=== PATIENT | female | born 1995 | race Caucasian/White ===

== ENCOUNTER 2017-04-05 19:35 | Emergency (ER) | payer MEDICAID, SELFPAY ==
[2017-04-05 19:36] VITALS: BP 155/86; PULSE 100; RESP 20; TEMP 37.2; O2SAT 99; BMI 41.5
--- NOTE | 2017-04-05 22:22 | ED.VISSUMM ---
- ER Visit Summary Date of Service: 04/05/17 Chief Complaint: [Mouth pain] History of Present Illness: The patient is a 21 F [who presents the emergency department with 1 week of mouth pain. Her gums have been bleeding off and on. She describes as a aching discomfort. Today she had subjective fevers with chills and felt hot. She has had back surgery in 2011. She denies any tooth pain. It is not a burning sensation. She has a history of bipolar autism IBS depression and orthostatic intolerance] Physical Examination: [] Afebrile heart rate 100 other vitals within normal limits Well-nourished overweight female in no acute distress No facial swelling TMs are clear Intraoral exam reveals a gingival ulcer at the juncture between the vehicle and gingival mucosa there is no dental tenderness there is mild surrounding hyperemia there is no abscess there is no sublingual or submandibular edema Patient has a regular rhythm with a 2 out of 6 systolic murmur Test Results: [] Emergency Department Course and Treatment: [Mother cannot remember if she has had a murmur in the past or not. She would like us to draw blood cultures because she has a history of a bacteremia that was missed. At this time there are no signs of bacteremia. Patient is well appearing there is minimal signs of infection and I think the risk of false positive blood cultures is higher than the benefit. Patient will be started on amoxicillin and Flagyl for gingivitis given chlorhexidine oral rinse. She will follow-up with her dentist as scheduled on the . They understand reasons for which to return including persistent temperature 100.5 worsening symptoms] Treatment Plan: [] Disposition: [Discharge] Impression: [Gingival ulcer, mild gingivitis] This note was generated with [employer] dictation software. It may contain incorrect words, spelling, and punctuation that were not noted in review of the chart prior to signing ED Disposition - Plan for ED Patient: Chief Complaint: Dental Referrals: Vikram Wang [Primary Care Provider] -
--- NOTE | 2017-04-05 22:26 | ED.DEP ---
ED Disposition - Plan for ED Patient: Chief Complaint: Dental Instructions: ED Stomatitis Ch, ED Trench Mouth Prescriptions: Metronidazole [Flagyl] 500 mg PO Q8H 7 Days #21 tablet Chlorhexidine Gluconate 10 ml MM BID #500 ml Amoxicillin [Amoxil] 500 mg PO TID 10 Days tab.chew Referrals: Vikram Wang [Primary Care Provider] - your, dentist [Other] - 5-7 Days
[2017-04-05] MEDS: metroNIDAZOLE 500 MG Tablet PO (22:38)
[2017-04-05] MEDS: AMOXICILLIN 500 MG CAPSULE PO (22:38)
[2017-04-05 22:40] VITALS: RESP 18; TEMP 36.8
== END 2017-04-05 22:42 | disposition home or self-care (01) ==
LOC: ED 22:15
PROVIDERS: Emergency Provider Emergency Medicine; Family Provider Physician Assistant; PCP Physician Assistant
DX: K06.8 Other specified disorders of gingiva and edentulous alveolar ridge (principal); K05.10 Chronic gingivitis, plaque induced; R01.1 Cardiac murmur, unspecified; E66.3 Overweight; K58.9 Irritable bowel syndrome, unspecified; F32.9 Major depressive disorder, single episode, unspecified; F31.9 Bipolar disorder, unspecified; F84.0 Autistic disorder; Z79.899 Other long term (current) drug therapy
CPT/HCPCS: 99282

== ENCOUNTER → 2017-06-26 09:16 | Outpatient (CLI) | payer MEDICAID, SELFPAY ==
[2017-06-26 11:07] LABS: ALB/GLOB Ratio 0.7 RATIO (0.9-2.4); AST(SGOT) 21 U/L (15-37); Alanine Aminotransfer ALT/SGPT 33 U/L (13-56); Albumin, Serum 3.2 g/dL (3.2-5.0); Alkaline Phosphatase 52 U/L (45-117); Anion Gap 11 (5-15); BUN 9 mg/dL (7-18); BUN/Creat Ratio 16.2 RATIO (10-20); Calcium,Total 8.9 mg/dL (8.5-10.1); Chloride 108 mmol/L (98-107); Creatinine, Serum 0.56 mg/dL (0.55-1.02); EST Glomerular Filtration Rate 147 mL/min (>60); Est Glom Filt Rate - Afr Amer 178 mL/min (>60); Globulin 4.5 g/dL (2.2-4.2); Glucose 81 mg/dL (74-106); Potassium 4.1 mmol/L (3.5-5.1); Protein, Total 7.7 g/dL (6.4-8.2); Sodium Level 143 mmol/L (136-145); Thyroid Stim Hormone (TSH) 1.85 uIU/mL (0.358-3.74)
== END ==
PROVIDERS: Family Provider Family Medicine; PCP Family Medicine; Visit Provider Registered Nurse
DX: R53.83 Other fatigue (principal); F19.10 Other psychoactive substance abuse, uncomplicated; Z79.899 Other long term (current) drug therapy
CPT/HCPCS: 36415; 80053; 80178; 84443

== ENCOUNTER → 2017-11-13 08:22 | Outpatient (CLI) | payer MEDICAID, SELFPAY | PROVIDERS: Family Provider Family Medicine; PCP Family Medicine; Referring Provider Nurse Practitioner Family; Visit Provider Nurse Practitioner Family | DX: R19.7 Diarrhea, unspecified (principal) | CPT/HCPCS: 87493; 87506 ==

== ENCOUNTER → 2017-12-10 11:05 | Outpatient (CLI) | payer MEDICAID, SELFPAY | PROVIDERS: Family Provider Family Medicine; PCP Family Medicine | DX: K58.9 Irritable bowel syndrome, unspecified (principal); R19.7 Diarrhea, unspecified | CPT/HCPCS: 36415 ==

== ENCOUNTER → 2017-12-17 07:03 | Outpatient (CLI) | payer MEDICAID, SELFPAY | PROVIDERS: Family Provider Family Medicine; PCP Family Medicine | DX: K58.9 Irritable bowel syndrome, unspecified (principal); R19.7 Diarrhea, unspecified | CPT/HCPCS: 36415 ==

== ENCOUNTER → 2018-06-27 | Outpatient (CLI) | payer MEDICAID, SELFPAY ==
--- NOTE | 2018-06-27 09:16 | US_ITS ---
STUDY: ABDOMINAL ULTRASOUND REASON FOR EXAM: Female, 22 years old. Gastritis TECHNIQUE: Transabdominal ultrasound was performed with real-time and static ching scale imaging. TECHNICAL QUALITY: Limited due to obesity COMPARISON: Ultrasound gallbladder June 02, 2016 FINDINGS: Liver: The liver measures 18 cm. There is increased hepatic echogenicity. The bile ducts are within normal limits. There is hepatic color flow. The direction of portal flow is hepatopetal. There is no demonstrated mass lesion. Gallbladder: The gallbladder wall measures 3 mm. There is a negative sonographic Hansen's sign. There is no pericholecystic fluid. There are no gallstones. Common Bile Duct (C.B.D.): The common bile duct measures 2 mm. Pancreas: Normal size of the head, body and tail of the pancreas. There is normal echogenicity of the pancreas. There is no demonstrated pancreatic mass or cyst. Spleen: Normal size of the spleen. The spleen measures 13 cm. Right Kidney: The right kidney measures 12 cm. Normal renal cortex. There is no demonstrated renal mass or cyst. There is no right hydronephrosis. Left Kidney: The left kidney measures 13 cm. Normal renal cortex. There is no demonstrated renal mass or cyst. There is no left hydronephrosis. Aorta: The aorta is normal in caliber. I.V.C.: The IVC is patent. There is no ascites. US/Abdomen Complete IMPRESSION: Fatty liver. Hepatomegaly. No acute pathology identified. Electronically Signed: Clay Sumner, at 20:53 EDT Tel , Service support ,
== END | disposition home or self-care (01) ==
LOC: US 09:13
PROVIDERS: Family Provider Family Medicine; PCP Family Medicine; Referring Provider Internal Medicine Gastroenterology; Visit Provider Internal Medicine Gastroenterology
DX: K29.70 Gastritis, unspecified, without bleeding (principal); R11.0 Nausea
CPT/HCPCS: 76700

== ENCOUNTER → 2018-08-20 | Outpatient (CLI) | payer MEDICAID, SELFPAY ==
[2018-08-20 10:03] LABS: Hemoglobin A1c 5.2 % (4.2-6.3)
[2018-08-20 10:22] LABS: ALB/GLOB Ratio 0.8 RATIO (0.9-2.4); AST(SGOT) 20 U/L (15-37); Alanine Aminotransfer ALT/SGPT 38 U/L (13-56); Albumin, Serum 3.2 g/dL (3.2-5.0); Alkaline Phosphatase 58 U/L (45-117); Anion Gap 10 (5-15); BUN 11 mg/dL (7-18); BUN/Creat Ratio 23.3 RATIO (10-20); Calcium,Total 8.6 mg/dL (8.5-10.1); Chloride 109 mmol/L (98-107); Creatinine, Serum 0.47 mg/dL (0.55-1.02); EST Glomerular Filtration Rate 176 mL/min (>60); Est Glom Filt Rate - Afr Amer 212 mL/min (>60); Glucose 91 mg/dL (74-106); Protein, Total 7.2 g/dL (6.4-8.2); Sodium Level 142 mmol/L (136-145); Thyroid Stim Hormone (TSH) 2.48 uIU/mL (0.358-3.74)
== END | disposition home or self-care (01) ==
LOC: LAB 08:19
PROVIDERS: Referring Provider Registered Nurse; Visit Provider Registered Nurse
DX: F31.81 Bipolar II disorder (principal); Z79.899 Other long term (current) drug therapy
CPT/HCPCS: 36415; 80053; 80178; 83036; 84443

== ENCOUNTER → 2018-09-20 | Outpatient (CLI) | payer MEDICAID, SELFPAY ==
--- NOTE | 2018-09-20 17:48 | CT_ITS ---
STUDY: CT ABDOMEN AND PELVIS WITHOUT CONTRAST REASON FOR EXAM: Female, 22 years old. Lower abdominal pain RADIATION DOSAGE (If Supplied By Facility): CTDIvol = ( 14.80 ) mGy, DLP = ( 825.95 ) mGycm TECHNIQUE: Transaxial images were obtained from the dome of the diaphragm to the symphysis pubis without oral contrast, and without intravenous contrast. Sagittal and coronal images were reconstructed. Individualized dose optimization techniques were used for this CT. COMPARISON: Ultrasound abdomen 06/28/1999, CT abdomen and pelvis 11/24/2015, 16 FINDINGS: Body wall soft tissues: No acute process. Osseous structures: No acute intracranial process. Multilevel thoracolumbar posterior valentina fixation. Scoliosis. Inferior chest: No acute process. Hepatobiliary: Hepatic steatosis with hepatomegaly, right liver 21.7 cm. Normal gallbladder and biliary tree. Pancreas: No acute process. Spleen: Normal. Adrenal glands: Normal. Urogenital: Normal kidneys, collecting systems, ureters, urinary bladder, uterus and adnexa. No pelvic free fluid. No adnexal mass or suspicious cyst. Pelvic floor and sidewalls and retroperitoneum: No mass or adenopathy. Vasculature: No acute process. Stomach: No acute process. Small bowel and mesentery: No acute process. Large bowel: Normal appendix. Unremarkable large bowel and rectum. Free fluid or free air: None. CT/Abdomen/Pelvis without Cont IMPRESSION: Hepatic steatosis with hepatomegaly. No other acute abdominopelvic process is evident. Electronically Signed: Vinay Garcia MD at 19:04 EDT Tel , Service support ,
== END | disposition home or self-care (01) ==
LOC: CT 17:45
DX: R10.9 Unspecified abdominal pain (principal)
CPT/HCPCS: 74176

== ENCOUNTER 2019-01-07 11:46 | Emergency (ER) | payer MEDICAID, SELFPAY ==
[2019-01-07 11:47] VITALS: BP 161/85; PULSE 101; RESP 16; TEMP 37.1; O2SAT 97; BMI 38.5
[2019-01-07 11:59] VITALS: BP 161/85; PULSE 101; RESP 16; TEMP 37.1; O2SAT 97
--- NOTE | 2019-01-07 12:02 | ED.VIS.GEN ---
History of Present Illness Chief Complaint: Nausea/Vomiting/Diarrhea Informant: Patient, Family Onset: Days - 3 Narrative: 3 days of diarrhea reports 30 a day, today reports 12 episodes with last one being 20 minutes ago. No fevers or abdominal pain. States nausea and vomiting x2 total, one 2 days ago and one yesterday. No hematemesis, melena, hematochezia. No recent antibiotics. No sick contacts. No family with similar symptoms. No recent travel. No abnormal meals. No urinary symptoms. Started menstrual period yesterday. Allergy to Zofran causing throat swelling. Prior similar symptoms: No Past Medical History - Allergies and Home Meds Allergies/Adverse Reactions: Allergies ondansetron [From Zofran (as hydrochloride)] Adverse Reaction (Verified 01/07/19 11:46) Nausea Primary Care Physician: Frances Pat [Primary Care Provider] - Smoking Status: Never smoker Review of Systems General: Denies: Chills, Fever, Sweats Eyes: Denies: Visual changes - bilaterally, Diplopia ENT: Denies: Rhinorrhea, Sore throat Cardiovascular: Denies: Chest pain, Palpitations Respiratory: Denies: Dyspnea, Cough, Dyspnea on exertion Gastrointestinal: Reports: Nausea, Diarrhea. Denies: Abdominal pain, Vomiting, Melena, Hematochezia Genitourinary: Denies: Dysuria, Hematuria, Frequency Musculoskeletal: Denies: Back pain, Extremity Pain Skin: Denies: Rash, Wounds Neurological: Denies: Headache, Weakness, Numbness Physical Exam Vital Signs/Narrative: Vital Signs Temp Pulse Resp BP Pulse Ox 01/07/19 11:59 98.7 F 101 H 16 161/85 H 97 01/07/19 11:47 98.7 F 101 H 16 161/85 H 97 Inital Vital Signs reviewed: Yes General: Well nourished, Well developed, No Acute Distress Head: Normocephalic, Atraumatic Eyes: Perrl, EOMI ENT: Moist mucous membranes, No rhinorrhea Neck: Supple, Nontender Cardiovascular: Regular rate, Regular rhythm, No murmurs Respiratory: No distress, CTA bilaterally, Chest nontender Abdomen: Soft, Nontender, Nondistended, Normal bowel sounds Back: Nontender, Normal Inspection Extremities: Nontender, No edema Skin: Normal color, No rash Neurological: Alert, Oriented x3, Cranial nerves II-XII grossly intact, Normal Strength, Normal Sensation Psychological: Normal affect, Normal Mood Diagnostic/Tx/Re-eval Abnormal Lab Results 01/07/19 01/07/19 01/07/19 12:20 12:20 12:20 WBC 7.5 RBC 4.81 Hgb 12.2 Hct 38.7 MCV 80.5 L MCH 25.4 L MCHC 31.5 L RDW Std Deviation 43.0 RDW Coeff of Delmy 14.6 Plt Count 333 MPV 9.2 Immature Gran % (Auto) 0.300 Neut % (Auto) 64.7 Lymph % (Auto) 27.1 Harris % (Auto) 6.4 Eos % (Auto) 1.1 Baso % (Auto) 0.4 Absolute Neuts (auto) 4.9 Absolute Lymphs (auto) 2.03 Nucleated RBC % 0 Sodium 140 Potassium 3.8 Chloride 106 Carbon Dioxide 26.0 Anion Gap 8 BUN 7 Creatinine 0.64 Estim Creat Clear Calc 134.08 Est GFR (MDRD) Af Amer 149 Est GFR (MDRD) Non-Af 123 BUN/Creatinine Ratio 10.9 Glucose 77 Calcium 8.9 Serum , Qual NEGATIVE - Medical Decision Making Nontoxic vital signs stable nontender abdomen. Reported significant amounts of stools for 3 days with no C. difficile risk factors. I did check labs normal white count normal creatinine normal potassium. Given IV fluids and Phenergan nausea improved she has been tolerant oral fluids today. Patient was in the department for nearly 3 hours with no stool specimen obtainable. No indication for empiric treatment at this time. She is sent home with stool specimen collection kit, outpatient lab order for stool evaluation and follow-up with her PCP. All questions were answered. Prescription for Phenergan to use as needed. ED Disposition - Plan for ED Patient: Disposition: Home or Assisted Living Diagnosis: Diarrhea Instructions: DIET, Vomiting or Diarrhea [6yr-Adult] Prescriptions: proMETHazine tablet [Phenergan] 25 mg PO Q6H PRN PRN #10 tablet PRN Reason: Nausea Referrals: [facility]Frances Tierney [Primary Care Provider] - 3-5 Days if not improving
[2019-01-07] MEDS: proMETHazine 25 MG/ML Syringe 12.5 MG IV (12:18)
[2019-01-07] MEDS: 0.9% Normal Saline 1,000 ML 1000 ML IV (12:19)
[2019-01-07 12:33] LABS: Absolute Lymphocyte Count 2.03 X10^3/uL (0.83-4.51); Absolute Neutrophil Count 4.9 X10^3/uL (2.0-7.7); Basophil# 0.03 X10^3/uL; Basophil% 0.4 % (0-1); Eosinophil# 0.08 X10^3/uL; Eosinophils% 1.1 % (0-5); Hematocrit 38.7 % (37-47); Hemoglobin 12.2 g/dL (12.0-15.0); Lymphocyte # 2.03 X10^3/ul (4.0); Lymphocyte % 27.1 % (19-41); Mean Corp Hgb Conc 31.5 g/dL (32-36); Mean Corpuscular Hgb 25.4 pg (27.0-32.0); Mean Corpuscular Volume 80.5 fL (81-99); Mean Platelet Vol. 9.2 fl (6.2-12.0); Monocyte# 0.48 X10^3/uL; Monocyte% 6.4 % (0-10); NRBC Flagged by Analyzer 0 % (0-5); Neutrophil # 4.86 X10^3/uL (2.7-7.7); Neutrophil % 64.7 % (47-70); Platelet Count 333 K/mm3 (150-450); RBC Distribution Width CV 14.6 % (11.6-14.6); Red Blood Count 4.81 M/mm3 (4.2-5.4); White Blood Count 7.5 K/mm3 (4.4-11.0)
[2019-01-07 12:51] LABS: Anion Gap 8 (5-15); BUN 7 mg/dL (7-18); BUN/Creat Ratio 10.9 RATIO (10-20); Calcium,Total 8.9 mg/dL (8.5-10.1); Chloride 106 mmol/L (98-107); Creatinine, Serum 0.64 mg/dL (0.55-1.02); EST Glomerular Filtration Rate 123 mL/min (>60); Est Glom Filt Rate - Afr Amer 149 mL/min (>60); Estimated Creatinine Clearance 134.08 ml/min; Glucose 77 mg/dL (74-106); Potassium 3.8 mmol/L (3.5-5.1); Sodium Level 140 mmol/L (136-145)
[2019-01-07 13:00] LABS: Internal QC Validated? YES +Cl - CLEAR BKGD; Pregnancy, Serum, hCG Quali. NEGATIVE Negative
[2019-01-07 13:54] VITALS: BP 158/90; PULSE 91; RESP 16; O2SAT 100
== END 2019-01-07 14:51 | disposition home or self-care (01) ==
PROVIDERS: Emergency Provider Emergency Medicine
DX: R19.7 Diarrhea, unspecified (principal); R11.2 Nausea with vomiting, unspecified
CPT/HCPCS: 80048; 84703; 85025; 87493; 87506; 96361; 96374; 99283; J7030

== ENCOUNTER → 2019-01-07 15:26 | Outpatient (CLI) | payer MEDICAID, SELFPAY ==
[2019-01-07 11:47] VITALS: BMI 38.5
== END ==
PROVIDERS: Referring Provider Emergency Medicine; Visit Provider Emergency Medicine
DX: R19.7 Diarrhea, unspecified (principal)
CPT/HCPCS: 87493; 87506

== ENCOUNTER → 2019-01-08 07:53 | Outpatient (CLI) | payer MEDICAID, SELFPAY ==
[2019-01-07 11:47] VITALS: BMI 38.5
--- NOTE | 2019-01-08 07:56 | ECHOD_ITS ---
Reason For Study: MURMUR Procedure This was a 2D Doppler, Color Flow transthoracic echocardiogram. The study was technically difficult. PT was very anxious during exam, used paydough to help with anxiety. Unable to utilize Definity, PT unwilling to have IV. Exam performed in department. Left Ventricle Normal LV size. Left ventricular systolic function is normal. The estimated ejection fraction is 55 %. No regional wall motion abnormalities noted. Right Ventricle Normal RV size. Normal systolic function. Atria Normal left atrium. Normal right atrium. Mitral Valve Normal mitral valve. Tricuspid Valve Normal tricuspid valve. Aortic Valve Normal aortic valve. Pulmonic Valve Normal pulmonic valve. Great Vessels Normal aortic root. The pulmonary artery is normal size. Normal inferior vena cava. Pericardium/Pleural No pericardial effusion. MMode/2D Measurements & Calculations LVIDd: 5.1 cm IVSd: 0.91 cm LVOT diam: 2.0 cm LVIDs: 2.9 cm LVPWd: 1.1 cm LVOT area: 3.2 cm2 RVDd: 3.6 cm FS: 42.2 % Ao root diam: 2.6 cm LAV(MOD-bp): 54.2 ml LA A4 area: 19.0 cm2 LAV(MOD-bp) Indexed: 24.5 ml/m2 LAV(MOD-sp2): 52.5 ml LAV(MOD-sp4): 49.4 ml LA dimension(2D): 3.8 cm RA A4 area: 15.5 cm2 Time Measurements MV dec time: 0.16 sec Doppler Measurements & Calculations MV E max elio: 125.6 cm/sec Lat Peak E' Elio: 15.0 cm/sec Med Peak E' Elio: 16.5 cm/sec MV A max elio: 68.7 cm/sec E/E' lat: 8.4 E/E' med: 7.6 MV E/A: 1.8 Ao V2 max: 217.8 cm/sec LV V1 max: 147.7 cm/sec SV(LVOT): 103.2 ml Ao max P.0 mmHg LV V1 max P.7 mmHg Ao V2 mean: 156.8 cm/sec LV V1 mean P.2 mmHg Ao mean P.8 mmHg LV V1 mean: 109.6 cm/sec Ao V2 VTI: 46.6 cm LV V1 VTI: 32.3 cm PETE(I,D): 2.2 cm2 PETE(V,D): 2.2 cm2 PA V2 max: 169.3 cm/sec PA V2 mean: 112.0 cm/sec PA V2 VTI: 35.4 cm Interpretation Summary Normal LV size. Left ventricular systolic function is normal. The estimated ejection fraction is 55 %. No regional wall motion abnormalities noted. Structurally normal valves. Ordering Physician: Micah^Crys^^^GERONTOLOGICAL NURSE PRACTITIONER-C Referring Physician: Crys Obrien Performed By: Kaur Kinsey, CISCO, RVT
== END ==
PROVIDERS: Referring Provider Nurse Practitioner Family; Visit Provider Nurse Practitioner Family
DX: R01.1 Cardiac murmur, unspecified (principal)
CPT/HCPCS: 93306

== ENCOUNTER 2019-03-24 23:21 | Emergency (ER) | payer MEDICAID, SELFPAY ==
[2019-03-24 23:23] VITALS: BP 157/97; PULSE 102; RESP 16; TEMP 36.7; O2SAT 100; BMI 38.2
--- NOTE | 2019-03-25 00:14 | EKG12_ITS ---
Test Reason : CP Blood Pressure : / mmHG Vent. Rate : 078 BPM Atrial Rate : 078 BPM P-R Int : 168 ms QRS Dur : 082 ms QT Int : 408 ms P-R-T Axes : 034 002 -05 degrees QTc Int : 465 ms Normal sinus rhythm Moderate voltage criteria for LVH, may be normal variant Borderline ECG Confirmed by DESTINY GASTON ([id number]), metropolitan editor ROSEANN ALBRIGHT ([id number]) on 03/28/2019 9:24:41 AM Referred By: Frances Tierney Confirmed By:DESTINY GASTON
[2019-03-25] MEDS: Naproxen 500 MG Tablet PO (00:35)
--- NOTE | 2019-03-25 00:43 | ED.VIS.GEN ---
History of Present Illness Chief Complaint: Chest Other Narrative: Patient is a 23-year-old female who presents with chest pain. This is been going on for 2 to 3 days. She notes it began after lifting a heavy container of icing. She initially attributed this to a muscle strain. The pain is along the left side of her chest. It is reproducible with palpation or certain movements. No shortness of breath. No recent illness. No fever or cough. Past Medical History - Allergies and Home Meds Allergies/Adverse Reactions: Allergies ondansetron [From Zofran (as hydrochloride)] Adverse Reaction (Verified 03/25/19 00:12) Nausea Primary Care Physician: Frances Tierney [Primary Care Provider] - Past Medical History: - - Bipolar Smoking Status: Never smoker Review of Systems All systems negative except as indicated General: Denies: Fever Cardiovascular: Reports: Chest pain Respiratory: Denies: Dyspnea Gastrointestinal: Denies: Nausea, Vomiting Skin: Denies: Rash Neurological: Denies: Headache Physical Exam Vital Signs/Narrative: Vital Signs Temp Pulse Resp BP Pulse Ox 03/24/19 23:23 98.1 F 102 H 16 157/97 H 100 Inital Vital Signs reviewed: Yes General: Well nourished, Well developed Head: Normocephalic Eyes: EOMI ENT: Moist mucous membranes Neck: Supple Cardiovascular: Regular rate, Regular rhythm Respiratory: No distress, CTA bilaterally, Chest tenderness - Left-sided chest wall tenderness, no rash Abdomen: Soft Skin: Normal color, No rash Neurological: Alert Psychological: Normal affect Diagnostic/Tx/Re-eval - Medical Decision Making EKG shows normal sinus rhythm at a rate of 78. Patient's pain is most consistent with a chest wall strain. She was advised on supportive care. She was given naproxen here and a prescription of the same. She understands to return for new or worsening symptoms. She was discharged. ED Disposition - Plan for ED Patient: Disposition: Home or Assisted Living Diagnosis: Chest wall muscle strain Instructions: Chest Wall Strain Prescriptions: Naproxen [Naprosyn] 500 mg PO BID #20 tab Prescription Printed Referrals: Frances Tierney [Primary Care Provider] -
[2019-03-25 00:55] VITALS: BP 132/76; PULSE 85; RESP 18; O2SAT 98
== END 2019-03-25 00:58 | disposition home or self-care (01) ==
PROVIDERS: Emergency Provider Emergency Medicine
DX: S29.011A Strain of muscle and tendon of front wall of thorax, initial encounter (principal); X50.0XXA Overexertion from strenuous movement or load, initial encounter; Y93.9 Activity, unspecified; Y92.9 Unspecified place or not applicable; F31.9 Bipolar disorder, unspecified; Z79.899 Other long term (current) drug therapy
CPT/HCPCS: 93005; 99283

== ENCOUNTER → 2019-08-25 13:03 | Outpatient (CLI) | payer MEDICAID, SELFPAY ==
--- NOTE | 2019-08-25 13:06 | US_ITS ---
STUDY: ULTRASOUND BREAST - RIGHT REASON FOR EXAM: Female, 23 years old. Palpable lump in the right breast. TECHNIQUE: Axial and longitudinal images of the RIGHT breast were performed with a high resolution ultrasound transducer. # OF IMAGES: 29 COMPARISON: None. FINDINGS: RIGHT Breast: Sonographic examination of the upper-outer quadrant of the right breast was obtained. There is dense fibroglandular tissue. No solid or cystic mass lesion is seen. US/Breast Limited Unilateral IMPRESSION: Unremarkable sonographic examination of the upper outer quadrant of the right breast. ASSESSMENT CATEGORY: BIRADS Category 1: Negative. A letter regarding these results will be sent to the patient by the facility within 30 days. Electronically Signed: Dante Espitia, at 13:56 EDT , Service support ,
== END ==
DX: N63.11 Unspecified lump in the right breast, upper outer quadrant (principal)
CPT/HCPCS: 76642

== ENCOUNTER 2019-10-16 09:07 | Emergency (ER) | payer MEDICAID, SELFPAY ==
[2019-10-16 09:08] VITALS: BP 164/93; PULSE 83; RESP 18; TEMP 36.3; O2SAT 100; BMI 42.3
--- NOTE | 2019-10-16 09:41 | CT_ITS ---
STUDY: CT BRAIN WITHOUT CONTRAST REASON FOR EXAM: Female, 23 years old. Migraine x 5 days. RADIATION DOSAGE (If Supplied By Facility): CTDIvol = ( 44.99 ) mGy, DLP = ( 796.11 ) mGycm TECHNIQUE: Transaxial CT imaging of the brain was performed without administration of intravenous contrast material. Individualized dose optimization techniques were used for this CT. COMPARISON: No relevant priors. FINDINGS: Normal soft tissue structures. Normal calvarium. Normal size ventricles and extra-axial spaces for the patient''s age. Normal white matter tracts of the cerebral hemispheres. Normal basal ganglia and thalami. Normal brainstem. Normal cerebellum. There is no intracranial hemorrhage. There are no findings of an acute ischemic infarction. Normal visualized paranasal sinuses. CT/Brain/Head without Contrast IMPRESSION: Normal unenhanced CT scan of the brain. Electronically Signed: Dante Espiita, at 10:42 EDT , Service support ,
[2019-10-16] MEDS: DiphenhydrAMINE 50 MG/ML Syringe 25 MG IV (10:04)
[2019-10-16] MEDS: 0.9% Normal Saline 1,000 ML 999 ML IV (10:04)
[2019-10-16] MEDS: Metoclopramide 10 MG/2 ML Vial IV (10:04)
--- NOTE | 2019-10-16 10:05 | ED.DCSUM_ITS ---
- ER Visit Summary Date of Service: 10/16/19 Chief Complaint: Headache History of Present Illness: The patient is a 23 F who presents with a headache that has been constant for the past 5 days. Patient states the pain is over the frontal area and behind her eyes. Patient states this is similar to prior mi graine headaches but worse. Patient admits to some nausea and vomiting. Patient admits to some scotoma prior to the headache. Patient admits to photophobia and blurred vision. Patient also admits to some tingling in her feet but denies any other paresthesias or weakness. Patient states her headache is also worse when she bends forward. Patient states she had a fever a few days ago but currently denies any fevers. Physical Examination: Vital signs are stable. Patient is afebrile. Patient is in no acute distress. Pupils are equal, round, and reactive to light bilat erally. Extraocular muscles are intact. Conjunctiva is clear. There is tenderness over the frontal sinuses bilaterally. Oral mucosa is pink and moist. Neck is supple. Trachea is midline. There is no JVD. Heart was regular rate and rhythm. Lungs are clear and equal bilaterally. Abdomen is soft. Bowel sounds are normal. There is no tenderness. Cranial nerves II through XII are intact. There are no focal motor or sensory deficits noted. Test Results: CT scan of the brain was obtained. There is no acute abnormality. This was interpreted by the radiologist and reviewed by myself. Emergency Department Course and Treatment: Patient was given IV fluids, Reglan, and Benadryl. Patient states the right side of her head feels better but the left side still has moderate amount of pain. Patient was given a dose of Toradol. Patient states her headache was improved after this. Patient was instructed to rest in a dark quiet room. Patient was instructed to follow-up with her primary care physician in 5 to 7 days. Patient understood and was agreeable with the plan. All questions were answered. Disposition: Discharge home Impression: 1. Migraine headache This note was generated with [employer] dictation software. It may contain incorrect words, spelling, and punctuation that were not noted in review of the chart prior to signing ED Disposition - Plan for ED Patient: Disposition: Home or Assisted Living Diagnosis: Headache Instructions: ED, Migraine (Classical) Referrals: Frances Tierney [Primary Care Provider] - 5-7 Days
[2019-10-16 11:22] VITALS: BP 151/92; PULSE 76; RESP 18; O2SAT 99
[2019-10-16] MEDS: Ketorolac 30 MG/ML Syringe IV (11:51)
== END 2019-10-16 12:56 | disposition home or self-care (01) ==
PROVIDERS: Emergency Provider Emergency Medicine
DX: G43.909 Migraine, unspecified, not intractable, without status migrainosus (principal); F31.9 Bipolar disorder, unspecified; F84.0 Autistic disorder; K76.0 Fatty (change of) liver, not elsewhere classified; K58.9 Irritable bowel syndrome, unspecified; F41.9 Anxiety disorder, unspecified; Z79.899 Other long term (current) drug therapy
CPT/HCPCS: 70450; 96361; 96374; 96375; 99283

== ENCOUNTER → 2019-10-31 09:19 | Outpatient (CLI) | payer MEDICAID, SELFPAY ==
[2019-10-16 09:08] VITALS: BMI 42.3
[2019-10-31 10:19] LABS: Absolute Lymphocyte Count 2.23 X10^3/uL (0.83-4.51); Absolute Neutrophil Count 5.5 X10^3/uL (2.0-7.7); Basophil# 0.06 X10^3/uL; Basophil% 0.7 % (0-1); Eosinophil# 0.15 X10^3/uL; Eosinophils% 1.8 % (0-5); Hematocrit 40.4 % (37-47); Hemoglobin 12.3 g/dL (12.0-15.0); Lymphocyte # 2.23 X10^3/ul (4.0); Lymphocyte % 26.2 % (19-41); Mean Corp Hgb Conc 30.4 g/dL (32-36); Mean Corpuscular Hgb 25.4 pg (27.0-32.0); Mean Corpuscular Volume 83.5 fL (81-99); Mean Platelet Vol. 9.5 fl (6.2-12.0); Monocyte# 0.58 X10^3/uL; Monocyte% 6.8 % (0-10); NRBC Flagged by Analyzer 0 % (0-5); Neutrophil # 5.46 X10^3/uL (2.7-7.7); Platelet Count 323 K/mm3 (150-450); RBC Distribution Width CV 14.7 % (11.6-14.6); RBC Distribution Width SD 44.8 fl (35.1-43.9); Red Blood Count 4.84 M/mm3 (4.2-5.4); White Blood Count 8.5 K/mm3 (4.4-11.0)
[2019-10-31 10:49] LABS: Hemoglobin A1c 5.5 % (3.8-5.6)
[2019-10-31 11:07] LABS: ALB/GLOB Ratio 0.8 RATIO (0.9-2.4); AST(SGOT) 80 U/L (15-37); Alanine Aminotransfer ALT/SGPT 144 U/L (13-56); Albumin, Serum 3.4 g/dL (3.2-5.0); Alkaline Phosphatase 74 U/L (45-117); Anion Gap 9 (5-15); BUN 9 mg/dL (7-18); BUN/Creat Ratio 15.5 RATIO (10-20); Calcium,Total 8.6 mg/dL (8.5-10.1); Chloride 108 mmol/L (98-107); Cholesterol 203 mg/dL (200); Creatinine, Serum 0.58 mg/dL (0.55-1.02); EST Glomerular Filtration Rate 137 mL/min (>60); Est Glom Filt Rate - Afr Amer 165 mL/min (>60); Glucose 96 mg/dL (74-106); High Density Lipoprotein 34 mg/dL; Potassium 3.9 mmol/L (3.5-5.1); Protein, Total 7.4 g/dL (6.4-8.2); Sodium Level 141 mmol/L (136-145); T4 Free Direct 1.11 ng/dL (0.76-1.46); Thyroid Stim Hormone (TSH) 2.22 uIU/mL (0.358-3.74); Triglycerides 178 mg/dL; Very Low Density Lipoprotein 36 mg/dL (5-40)
[2019-10-31 22:01] LABS: Magnesium 2.3 mg/dL (1.6-2.6)
== END ==
PROVIDERS: Nurse Practitioner Family
DX: E55.9 Vitamin D deficiency, unspecified (principal); K58.2 Mixed irritable bowel syndrome; G43.909 Migraine, unspecified, not intractable, without status migrainosus; E31.9 Polyglandular dysfunction, unspecified
CPT/HCPCS: 36415; 80053; 80061; 83036; 83735; 84439; 84443; 85025

== ENCOUNTER → 2019-11-14 08:54 | Outpatient (CLI) | payer MEDICAID, SELFPAY ==
[2019-10-16 09:08] VITALS: BMI 42.3
[2019-11-14 11:13] LABS: Lithium < 0.20 mmol/L (0.60-1.20)
[2019-11-14 11:17] LABS: ALB/GLOB Ratio 0.9 RATIO (0.9-2.4); AST(SGOT) 96 U/L (15-37); Alanine Aminotransfer ALT/SGPT 162 U/L (13-56); Albumin, Serum 3.5 g/dL (3.2-5.0); Alkaline Phosphatase 72 U/L (45-117); Anion Gap 6 (5-15); BUN 11 mg/dL (7-18); BUN/Creat Ratio 17.9 RATIO (10-20); Calcium,Total 8.8 mg/dL (8.5-10.1); Chloride 109 mmol/L (98-107); Creatinine, Serum 0.61 mg/dL (0.55-1.02); EST Glomerular Filtration Rate 128 mL/min (>60); Est Glom Filt Rate - Afr Amer 155 mL/min (>60); Globulin 4.1 g/dL (2.2-4.2); Glucose 96 mg/dL (74-106); Potassium 3.9 mmol/L (3.5-5.1); Protein, Total 7.6 g/dL (6.4-8.2); Sodium Level 141 mmol/L (136-145); Thyroid Stim Hormone (TSH) 2.29 uIU/mL (0.358-3.74)
== END ==
PROVIDERS: Referring Provider Registered Nurse; Visit Provider Registered Nurse
DX: Z79.899 Other long term (current) drug therapy (principal)
CPT/HCPCS: 36415; 80053; 80178; 84443

== ENCOUNTER → 2020-05-01 08:35 | Outpatient (CLI) | payer MEDICAID, SELFPAY ==
[2020-05-01 10:22] LABS: ALB/GLOB Ratio 0.7 RATIO (0.9-2.4); AST(SGOT) 26 U/L (15-37); Alanine Aminotransfer ALT/SGPT 46 U/L (13-56); Alkaline Phosphatase 55 U/L (45-117); Anion Gap 7 (5-15); BUN 7 mg/dL (7-18); Calcium,Total 8.6 mg/dL (8.5-10.1); Chloride 108 mmol/L (98-107); Creatinine, Serum 0.64 mg/dL (0.55-1.02); EST Glomerular Filtration Rate 122 mL/min (>60); Est Glom Filt Rate - Afr Amer 148 mL/min (>60); Globulin 4.2 g/dL (2.2-4.2); Glucose 92 mg/dL (74-106); Potassium 3.9 mmol/L (3.5-5.1); Protein, Total 7.2 g/dL (6.4-8.2); Sodium Level 140 mmol/L (136-145); Thyroid Stim Hormone (TSH) 1.98 uIU/mL (0.358-3.74)
== END ==
PROVIDERS: Referring Provider Registered Nurse; Visit Provider Registered Nurse
DX: Z79.899 Other long term (current) drug therapy (principal)
CPT/HCPCS: 36415; 80053; 80178; 84443

== ENCOUNTER 2020-05-27 09:20 | Emergency (ER) | payer MEDICAID, SELFPAY ==
[2020-05-27 09:22] VITALS: BP 152/111; PULSE 100; RESP 26; TEMP 36.6; O2SAT 98; BMI 42.1
--- NOTE | 2020-05-27 09:38 | EKG12_ITS ---
Test Reason : CP Blood Pressure : / mmHG Vent. Rate : 102 BPM Atrial Rate : 102 BPM P-R Int : 164 ms QRS Dur : 076 ms QT Int : 362 ms P-R-T Axes : 034 001 -16 degrees QTc Int : 471 ms Sinus tachycardia Voltage criteria for left ventricular hypertrophy Abnormal ECG Confirmed by RELL VARGAS, FOZIA ([id number]), editor in chief ROSEANN ALBRIGHT ([id number]) on 05/31/2020 2:11:03 PM Referred By: SANDRA/CHARLENE Confirmed By:FOZIA ZACARIAS MD
[2020-05-27 09:43] VITALS: BP 152/111; PULSE 100; RESP 26; TEMP 36.6; O2SAT 98; O2SAT 99
--- NOTE | 2020-05-27 09:45 | RAD_ITS ---
STUDY: X-RAY CHEST REASON FOR EXAM: Female, 24 years old. chest pain TECHNIQUE: Single AP portable view of the chest. COMPARISON: 06/05/2016. FINDINGS: Spinal fixation hardware. Cardiac silhouette unremarkable. Pulmonary vascularity unremarkable. Aorta unremarkable. No focal patchy airspace opacities. No pleural effusions. Upper abdomen unremarkable. Osseous structures intact. No pneumothorax. RAD/Chest 1 View (Portable) IMPRESSION: No acute cardiopulmonary findings Electronically Signed: Ozzy Matamoros DO at 10:14 EDT Tel , Service support ,
[2020-05-27 09:46] LABS: Absolute Lymphocyte Count 1.37 X10^3/uL (0.83-4.51); Absolute Neutrophil Count 2.5 X10^3/uL (2.0-7.7); Basophil# 0.02 X10^3/uL; Basophil% 0.4 % (0-1); Eosinophil# 0.04 X10^3/uL; Eosinophils% 0.9 % (0-5); Hematocrit 39.5 % (37-47); Hemoglobin 12.4 g/dL (12.0-15.0); Lymphocyte # 1.37 X10^3/ul (4.0); Lymphocyte % 30.3 % (19-41); Mean Corp Hgb Conc 31.4 g/dL (32-36); Mean Corpuscular Hgb 25.5 pg (27.0-32.0); Mean Corpuscular Volume 81.3 fL (81-99); Mean Platelet Vol. 9.4 fl (6.2-12.0); Monocyte% 13.3 % (0-10); NRBC Flagged by Analyzer 0 % (0-5); Neutrophil # 2.47 X10^3/uL (2.7-7.7); Neutrophil % 54.7 % (47-70); Platelet Count 299 K/mm3 (150-450); RBC Distribution Width CV 14.2 % (11.6-14.6); RBC Distribution Width SD 41.9 fl (35.1-43.9); Red Blood Count 4.86 M/mm3 (4.2-5.4); White Blood Count 4.5 K/mm3 (4.4-11.0)
--- NOTE | 2020-05-27 09:58 | ED.VIS.DYS ---
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 Negative for: Bloody Sputum, Fever Chest Pain: Continuous, Pressure - substernal, nonpleuritic Narrative: 24-year-old female states she has had worsening chest pain and trouble breathing over the last couple days worse this morning, she has had a cough for 3 or 4 days along with myalgias and malaise but no fevers or chills. Multiple persons in her household currently have Covid, she has been trying to quarantine in her room but has had incidental contact with multiple family members off and on throughout this recent time. - Past Medical History (1) Bipolar 1 disorder Status: Chronic (2) Autism Status: Chronic Past Medical History - Allergies and Home Meds Allergies/Adverse Reactions: Allergies escitalopram [From Lexapro] Adverse Reaction (Verified 05/27/20 09:22) Other increased si ondansetron [From Zofran (as hydrochloride)] Adverse Reaction (Verified 05/27/20 09:22) Nausea Primary Care Physician: [facility] Frances Trotter [Primary Care Provider] - (or ER if feeling worse) Lives: With Family Smoking Status: Never smoker Review of Systems General: Reports: Malaise. Denies: Chills, Fever, Sweats Eyes: Denies: Visual changes - bilaterally, Diplopia ENT: Reports: Rhinorrhea - And congestion, Sore throat. Denies: Bilateral ear pain Cardiovascular: Reports: Chest pain. Denies: Palpitations, Heart racing Respiratory: Reports: Dyspnea, Cough. Denies: Sputum, Orthopnea Gastrointestinal: Reports: Nausea. Denies: Abdominal pain, Vomiting, Diarrhea, Melena, Hematochezia Genitourinary: Denies: Dysuria, Hematuria, Frequency Musculoskeletal: Reports: Myalgias. Denies: Back pain, Swelling, Extremity Pain Skin: Denies: Rash, Wounds Neurological: Reports: Headache. Denies: Weakness, Numbness Physical Exam Vital Signs/Narrative: Vital Signs Temp Pulse Resp BP Pulse Ox 05/27/20 09:43 97.8 F 100 26 H 152/111 H 99 05/27/20 09:22 97.8 F 100 26 H 152/111 H 98 Inital Vital Signs reviewed: Yes General: Well nourished, Well developed, Obese, No Acute Distress Head: Normocephalic, Atraumatic Eyes: Perrl, EOMI ENT: Moist mucous membranes, No rhinorrhea, - - Posterior oropharynx clear without erythema or exudates or asymmetry. Negative for: Sinus tenderness Neck: Supple, Nontender, No lymphadenopathy, No JVD Cardiovascular: Regular rate, Regular rhythm, Murmur - soft systolic ejection Respiratory: No distress - No apparent trouble breathing, speaking in full sentences although patient states she is moderately dyspneic currently., CTA bilaterally, Chest nontender Abdomen: Soft, Nontender, Nondistended, Normal bowel sounds Back: Nontender, Normal Inspection. Negative for: CVA tenderness Extremities: Nontender, No edema. Negative for: Calf Tenderness Skin: Normal color, No rash, No Trauma Neurological: Alert, Oriented x3, Cranial nerves II-XII grossly intact, Normal Strength, Normal Sensation, Normal Gait Psychological: Normal affect - Flat, Normal Mood Diagnostic/Tx/Re-eval Chest X-Ray - ED: 1 View, Read by ED Physician, Normal, Heart, Lungs, No Acute Disease, No Infiltrates Impressions Chest X-Ray 05/27/20 09:45 IMPRESSION: No acute cardiopulmonary findings Electronically Signed: Ozzy Matamoros DO at 10:14 EDT Tel , Service support , 05/27/20 09:45 Chest 1 View (Portable) [RAD] Stat 05/27/20 09:41 Mucosa - Nose SARS-CoV-2 Antigen (Rapid) - Final SARS-CoV-2 (COVID 19) Laboratory Results 05/27/20 05/27/20 05/27/20 09:20 09:20 09:20 WBC 4.5 RBC 4.86 Hgb 12.4 Hct 39.5 MCV 81.3 MCH 25.5 L MCHC 31.4 L RDW Std Deviation 41.9 RDW Coeff of Delmy 14.2 Plt Count 299 MPV 9.4 Immature Gran % (Auto) 0.400 Neut % (Auto) 54.7 Lymph % (Auto) 30.3 [place] % (Auto) 13.3 H Eos % (Auto) 0.9 Baso % (Auto) 0.4 Absolute Neuts (auto) 2.5 Absolute Lymphs (auto) 1.37 Nucleated RBC % 0 D-Dimer Quant (PE/DVT) 0.34 Sodium 139 Potassium 3.3 L Chloride 106 Carbon Dioxide 25.0 Anion Gap 8 BUN 9 Creatinine 0.76 Estim Creat Clear Calc 111.95 Est GFR (MDRD) Af Amer 122 Est GFR (MDRD) Non-Af 101 BUN/Creatinine Ratio 11.9 Glucose 112 H Calcium 9.1 Troponin I < 0.015 - Rhythm Strip Rhythm Strip: Sinus Tach Rate: 102 Ectopy: None - EKG Initial EKG Interpretation: No Acute Injury Pattern, Sinus Tachycardia Treatment - Dyspnea: Albuterol - mdi With Ambulation: - - no desaturation - Medical Decision Making Patient's rapid Covid test returned positive, given the history, this is likely a true positive and no further testing is indicated. She does not have Covid pneumonitis at this time, and her pulse ox is excellent. There is no indication for admission. She was given appropriate discharge instructions, and she was referred to the monoclonal antibody infusion referral line since she is over 18 and has a BMI over 35. We discussed reasons to return. Note, the patient has a soft cardiac murmur, she states that she is already been told about it and someone is following it. ED Disposition - Plan for ED Patient: Disposition: Home or Assisted Living Diagnosis: COVID-19 Instructions: ED - COVID Monoclonal AB Infusion ..., Coronavirus Disease 2019 (COVID-19): Caring for Yourself or Others Prescriptions: Albuterol Inhaler [Ventolin Hfa] 1 - 2 puff INHALATION Q4H PRN PRN #1 inhaler PRN Reason: Wheezing Transmission Status: Pending to [id number] Referrals: [facility],Frances Tierney [Primary Care Provider] - (or ER if feeling worse)
[2020-05-27 10:02] LABS: Anion Gap 8 (5-15); BUN 9 mg/dL (7-18); BUN/Creat Ratio 11.9 RATIO (10-20); Calcium,Total 9.1 mg/dL (8.5-10.1); Chloride 106 mmol/L (98-107); Creatinine, Serum 0.76 mg/dL (0.55-1.02); EST Glomerular Filtration Rate 101 mL/min (>60); Est Glom Filt Rate - Afr Amer 122 mL/min (>60); Estimated Creatinine Clearance 111.95 ml/min; Glucose 112 mg/dL (74-106); Potassium 3.3 mmol/L (3.5-5.1); Sodium Level 139 mmol/L (136-145)
[2020-05-27 10:08] LABS: D-Dimer Quantitative (DVT/PE) 0.34 FEU/ug/m (0.27-0.49)
[2020-05-27 10:36] VITALS: BP 151/101; PULSE 89; RESP 16; O2SAT 97; O2SAT 98
== END 2020-05-27 11:36 | disposition home or self-care (01) ==
PROVIDERS: Emergency Provider Emergency Medicine
DX: U07.1 COVID-19 (principal); R01.1 Cardiac murmur, unspecified; F31.9 Bipolar disorder, unspecified; F84.0 Autistic disorder; Z79.899 Other long term (current) drug therapy; E66.9 Obesity, unspecified
CPT/HCPCS: 71045; 80048; 84484; 85025; 85379; 87426; 93005; 99284; A4216

== ENCOUNTER 2020-07-12 09:38 | Emergency (ER) | payer MEDICAID, SELFPAY ==
[2020-07-12 09:39] VITALS: BP 143/96; BP 164/104; PULSE 81; PULSE 86; RESP 18; RESP 27; TEMP 36.6; O2SAT 100; O2SAT 99; BMI 46.0
--- NOTE | 2020-07-12 09:52 | EKG12_ITS ---
Test Reason : HTN Blood Pressure : / mmHG Vent. Rate : 080 BPM Atrial Rate : 080 BPM P-R Int : 162 ms QRS Dur : 084 ms QT Int : 410 ms P-R-T Axes : 020 004 -16 degrees QTc Int : 472 ms Normal sinus rhythm Voltage criteria for left ventricular hypertrophy Nonspecific T wave abnormality Abnormal ECG Confirmed by SAHRA VARGAS, ROXY ([id number]), scientific publications editor SATYA FRANKLIN ([id number]) on 07/14/2020 9:36:09 AM Referred By: BEN Confirmed By:ROXY BOCANEGRA MD
--- NOTE | 2020-07-12 09:54 | EDS_ITS ---
HPI History of Present Illness Chief Complaint: Hypertension Informant: patient and parent Narrative Narrative: Patient has multiple complaints including headache, blurry vision, elevated blood pressure, increased thirst. Symptoms have been ongoing for 2 weeks. She states her headache has been ongoing for a couple of days. Its throbbing in nature. It is made her vision go blurry. She told her mother that at times when she wakes up in the morning she has no vision for 10 minutes. Patient states she does get headaches frequently. She is prescribed what sounds like propranolol for headaches. She also has history of bipolar and is on lithium. The blurry vision is in both eyes and is correlated with a headache. She has had increased thirst over the past 14 days. Her blood sugar at the highest has been 150 but this was after eating a meal. Her blood pressure was elevated a few months ago when she did was diagnosed with coronavirus. They have not followed up with her PCP about this. [facility] Medical History (Updated 07/12/20 @ 11:[address] Shivam Kowalski MD) Autism Bipolar disorder Fatty liver IBS (irritable bowel syndrome) Migraines Home Medications Control 1 tab DAILY 11/11/15 [History Last Taken Unknown] aripiprazole [Abilify] 7.5 mg PO DAILY 04/05/17 [History Last Taken Unknown] lithium carbonate 300 mg PO BID 04/05/17 [History Last Taken Unknown] omeprazole 40 mg PO DAILY 04/05/17 [History Last Taken Unknown] norgestimate-ethinyl estradiol 1 tab PO DAILY 01/07/19 [History Last Taken Unknown] promethazine 25 mg PO Q6H PRN PRN #10 tab 01/07/19 [Rx Last Taken Unknown] naproxen 500 mg PO BID #20 tab 03/25/19 [Rx Last Taken Unknown] albuterol sulfate 1 - 2 puff INHALATION Q4H PRN PRN #1 inhaler 05/27/20 [Rx Last Taken Unknown] Allergy/AdvReac Type Severity Reaction Status Date / Time pollen extracts Allergy Hives Verified 07/12/20 09:42 escitalopram [From Lexapro] AdvReac Other Verified 05/27/20 09:22 lactase [From Dairy Aid] AdvReac Upset Verified 07/12/20 09:42 Stomach ondansetron AdvReac Nausea Verified 05/27/20 09:22 [From Zofran (as hydrochloride)] Social History Smoking Status: Never smoker ROS ROS ED Constitutional Constitutional ED: Denies chills or fever(s) Eyes Eyes: Reports blurry vision ENT ENT ED: Reports other; Denies ear pain, rhinorrhea or sore throat Cardiovascular Cardiovascular: Denies chest pain, palpitations or racing heartbeat Respiratory/Chest Respiratory/Chest: Denies cough, dyspnea, dyspnea on exertion or sputum Gastrointestinal Gastrointestinal: Denies abdominal pain, diarrhea, nausea or vomiting Genitourinary Genitourinary ED: Denies dysuria, hematuria or urinary frequency Musculoskeletal Musculoskeletal: Denies back pain, myalgias or neck pain Integumentary Denies abscess or rash Neurologic Neurologic: Reports headache(s) Psychiatric Psychiatric: Denies anxiety or depression Endocrine Endocrinology: Reports polydipsia Hematologic/Lymphatic Hematologic/Lymphatic: Denies easy bleeding or easy bruising Allergic/Immunologic Allergic/Immunologic ED: Denies urticaria EXAM Physical Exam Const Vital Signs: 07/12/20 09:39 07/12/20 09:55 Temperature 97.9 F Temperature Source Temporal Pulse Rate 81 Respiratory Rate 27 H Respiratory Effort Normal Non-Labored Respiratory Pattern Normal Blood Pressure 143/96 H Blood Pressure Mean 111 Pulse Ox 100 Oxygen Delivery Method Room Air Positive well nourished and well developed General Appearance ED: well developed and NAD HEENT Reports normocephalic and head/scalp atraumatic normocephalic and atraumatic; Negative for tenderness Eyes PERRL and EOMs intact bilaterally General Eye ED: Negative for scleral icterus Neck supple and no JVD Chest Wall palpation of chest normal Chest: Negative for tenderness Resp normal respiratory effort and clear to auscultation bilaterally Effort and Inspection: Negative for respiratory distress Cardio regular rate and regular rhythm; Negative for no murmurs GI soft to palpation, non-tender and non-distended Palpation: soft Back/Spine no CVA tenderness and no thoracic nor lumbar tenderness Cervical Spine: Negative for cervical spine tenderness Extremity normal to inspection General Extremety ED: Negative for tenderness Neuro oriented x3, CN's II-XII intact bilaterally and no sensory deficits noted Sensorium / Orientation: awake and alert Motor Exam: strength 5/5 throughout Psych mental status grossly normal Skin no rashes or lesions noted MDM MDM MDM Narrative Medical decision making narrative: The patient was given Compazine and Benadryl as well as IV fluids. Laboratory studies were unremarkable except for her lithium level of 0.4. Upon reevaluation the patient's headache was improved. I feel that her vision changes are likely due to the headache. They are not lead unilateral. Mother is requesting ophthalmology follow-up which I will give her. She is seeing her doctor on Sunday. Her repeat blood pressure here is 148/88. I will hold off on starting her on any antihypertensives until she follows up with her PCP. Lab Data Labs: Laboratory Results - last 24 hr 07/12/20 07/12/20 07/12/20 10:15 10:15 10:15 WBC 6.0 RBC 4.63 Hgb 11.7 L Hct 37.5 MCV 81.0 MCH 25.3 L MCHC 31.2 L RDW Std Deviation 44.7 H RDW Coeff of Delmy 15.3 H Plt Count 309 MPV 9.5 Immature Gran % (Auto) 0.200 Neut % (Auto) 58.5 Lymph % (Auto) 32.3 [place] % (Auto) 7.8 Eos % (Auto) 0.7 Baso % (Auto) 0.5 Absolute Neuts (auto) 3.5 Absolute Lymphs (auto) 1.95 Nucleated RBC % 0 Sodium 139 Potassium 3.7 Chloride 105 Carbon Dioxide 28.0 Anion Gap 6 BUN 8 Creatinine 0.58 Estim Creat Clear Calc 141.22 Est GFR (MDRD) Af Amer 163 Est GFR (MDRD) Non-Af 135 BUN/Creatinine Ratio 13.7 Glucose 88 Calcium 9.0 [place] 0.40 L EKG Initial EKG: Comments: Sinus rhythm with a rate of 80. No ST changes. QTc 472, CT interval 162 Discharge Plan Triage Chief Complaint: Hypertension ED Provider: Shivam Kowalski Dx/Rx/DC Orders Clinical Impression: Headache, Blurred vision, Elevated blood pressure reading Instructions: ED Hypertension, To Be Confirmed Prescriptions: No Action Control 1 tab DAILY RF: 0 omeprazole 40 MG Capsule.Dr 40 mg PO DAILY RF: 0 lithium carbonate 300 MG capsule 300 mg PO BID RF: 0 aripiprazole [Abilify] 15 MG tablet 7.5 mg PO DAILY RF: 0 norgestimate-ethinyl estradiol 1 TABLET tablet 1 tab PO DAILY RF: 0 promethazine 25 MG tablet 25 mg PO Q6H PRN PRN (Reason: Nausea) Qty: 10 RF: 0 naproxen 500 MG tablet 500 mg PO BID Qty: 20 RF: 0 albuterol sulfate 1 INHALER inhaler 1 - 2 puff INHALATION Q4H PRN PRN (Reason: Wheezing) Qty: 1 RF: 0 Primary Care Provider: [facility] Frances Trotter Referrals: [facility] Frances Trotter [Primary Care Provider] - Disposition Disposition: Home, self care
[2020-07-12] MEDS: DiphenhydrAMINE 50 MG/ML Syringe 25 MG IV (10:17)
[2020-07-12] MEDS: proCHLORPERazine 10 MG/2 ML Vial IV (10:17)
[2020-07-12] MEDS: 0.9% Normal Saline 1,000 ML 999 ML IV (10:18)
[2020-07-12 10:26] LABS: Absolute Lymphocyte Count 1.95 X10^3/uL (0.83-4.51); Absolute Neutrophil Count 3.5 X10^3/uL (2.0-7.7); Basophil# 0.03 X10^3/uL; Basophil% 0.5 % (0-1); Eosinophil# 0.04 X10^3/uL; Eosinophils% 0.7 % (0-5); Hematocrit 37.5 % (37-47); Hemoglobin 11.7 g/dL (12.0-15.0); Lymphocyte # 1.95 X10^3/ul (0.83-4.51); Lymphocyte % 32.3 % (19-41); Mean Corp Hgb Conc 31.2 g/dL (32-36); Mean Corpuscular Hgb 25.3 pg (27.0-32.0); Mean Platelet Vol. 9.5 fl (6.2-12.0); Monocyte# 0.47 X10^3/uL; Monocyte% 7.8 % (0-10); NRBC Flagged by Analyzer 0 % (0-5); Neutrophil # 3.54 X10^3/uL (2.7-7.7); Neutrophil % 58.5 % (47-70); Platelet Count 309 K/mm3 (150-450); RBC Distribution Width CV 15.3 % (11.6-14.6); RBC Distribution Width SD 44.7 fl (35.1-43.9); Red Blood Count 4.63 M/mm3 (4.2-5.4)
[2020-07-12 10:41] LABS: Anion Gap 6 (5-15); BUN 8 mg/dL (7-18); BUN/Creat Ratio 13.7 RATIO (10-20); Chloride 105 mmol/L (98-107); Creatinine, Serum 0.58 mg/dL (0.55-1.02); EST Glomerular Filtration Rate 135 mL/min (>60); Est Glom Filt Rate - Afr Amer 163 mL/min (>60); Estimated Creatinine Clearance 141.22 ml/min; Glucose 88 mg/dL (74-106); Potassium 3.7 mmol/L (3.5-5.1); Sodium Level 139 mmol/L (136-145)
[2020-07-12 11:21] VITALS: BP 158/96; PULSE 78; RESP 20; O2SAT 99
== END 2020-07-12 11:34 | disposition home or self-care (01) ==
PROVIDERS: Emergency Provider Emergency Medicine
DX: R51.9 Headache, unspecified (principal); H53.8 Other visual disturbances; R03.0 Elevated blood-pressure reading, without diagnosis of hypertension; F31.9 Bipolar disorder, unspecified; F84.0 Autistic disorder; K58.9 Irritable bowel syndrome, unspecified; K76.0 Fatty (change of) liver, not elsewhere classified; G43.909 Migraine, unspecified, not intractable, without status migrainosus; Z86.16 Personal history of COVID-19; Z79.899 Other long term (current) drug therapy
CPT/HCPCS: 80048; 80178; 85025; 93005; 96361; 96374; 96375; 99285; J7030

== ENCOUNTER → 2020-07-14 15:28 | Outpatient (CLI) | payer MEDICAID, SELFPAY ==
[2020-07-12 09:39] VITALS: BMI 46.0
[2020-07-14 17:30] LABS: Absolute Lymphocyte Count 2.26 X10^3/uL (0.83-4.51); Absolute Neutrophil Count 5.7 X10^3/uL (2.0-7.7); Basophil# 0.03 X10^3/uL; Basophil% 0.3 % (0-1); Eosinophil# 0.09 X10^3/uL; Hematocrit 37.6 % (37-47); Hemoglobin 11.7 g/dL (12.0-15.0); Lymphocyte # 2.26 X10^3/ul (0.83-4.51); Lymphocyte % 26.1 % (19-41); Mean Corp Hgb Conc 31.1 g/dL (32-36); Mean Corpuscular Hgb 24.9 pg (27.0-32.0); Mean Corpuscular Volume 80.2 fL (81-99); Monocyte# 0.62 X10^3/uL; Monocyte% 7.2 % (0-10); NRBC Flagged by Analyzer 0 % (0-5); Neutrophil # 5.65 X10^3/uL (2.7-7.7); Neutrophil % 65.2 % (47-70); Platelet Count 328 K/mm3 (150-450); RBC Distribution Width CV 15.4 % (11.6-14.6); RBC Distribution Width SD 45.1 fl (35.1-43.9); Red Blood Count 4.69 M/mm3 (4.2-5.4); White Blood Count 8.7 K/mm3 (4.4-11.0)
[2020-07-14 17:46] LABS: CRP 9.44 mg/L (0.0-3.0)
[2020-07-14 18:44] LABS: Erythrocyte Sedimentation Rate 40 mm/hr (0-30)
[2020-07-17 14:18] LABS: ANTINUCLEAR ANTIBODIES DIRECT Negative (Negative)
== END ==
PROVIDERS: Visit Provider Nurse Practitioner Adult Health
DX: G43.109 Migraine with aura, not intractable, without status migrainosus (principal)
CPT/HCPCS: 36415; 85025; 85652; 86038; 86140

== ENCOUNTER → 2020-07-15 17:10 | Outpatient (CLI) | payer MEDICAID, SELFPAY ==
[2020-07-12 09:39] VITALS: BMI 46.0
--- NOTE | 2020-07-15 17:14 | MRI_ITS ---
STUDY: MRI BRAIN WITH AND WITHOUT CONTRAST REASON FOR EXAM: Female, 24 years old. MIGRAINE, SUDDEN VISION LOSS TECHNIQUE: Standardized multiplanar fat and water weighted pulse sequences were obtained. IV 25 cc dotarem was administered for the contrast portion of the examination. COMPARISON: MRI of the brain 09/27/2016 CT of the brain 10/16/2019 FINDINGS: Normal size of the ventricles and extra-axial spaces for the patient''s age. There are a few tiny nonspecific white matter lesions in the frontal and parietal lobes without mass effect or restricted diffusion. Normal bilateral basal ganglia. Normal thalami. There is no extra-axial fluid accumulation. Normal flow voids within the major intracranial circulation suggesting patency by spin echo criteria. Normal venous enhancement. There is no enhancing intra-axial or extra-axial abnormality. Normal sella turcica, pituitary gland, infundibular stalk, optic chiasm and hypothalamus. Normal tectal plate and pineal gland. Normal midbrain, riya and medulla. Normal cerebellum. Normal basal cisterns. Normal bilateral temporal bones. Normal bilateral internal auditory canals. No demonstrated orbital abnormality, within the constraints of a routine brain study. Mild mucosal thickening of the maxillary sinuses without air-fluid level.. Normal calvarium and skull base. Normal visualized soft tissue structures. Normal visualized upper cervical spine. MRI/Brain W/WO Contrast IMPRESSION: Minor nonspecific white matter disease without evidence for acute infarct. Differential diagnosis includes demyelinating disease, small vessel ischemic changes, inflammatory disease such as Lyme disease or prior trauma. Clinical correlation is recommended No enhancing lesions are seen following contrast administration Electronically Signed: Clay Castro MD at 22:28 EDT , Service support ,
== END ==
PROVIDERS: Visit Provider Nurse Practitioner Adult Health
DX: H53.133 Sudden visual loss, bilateral (principal); H53.8 Other visual disturbances; G43.109 Migraine with aura, not intractable, without status migrainosus
CPT/HCPCS: 70553; A9575

== ENCOUNTER → 2020-07-22 06:56 | Outpatient (CLI) | payer MEDICAID, SELFPAY ==
[2020-07-12 09:39] VITALS: BMI 46.0
[2020-07-22 07:02] LABS: Lyme Ab Screen Interpretation REF LAB
[2020-07-30 03:07] LABS: Lyme IgG P18 Ab Absent (.); Lyme IgG P23 Ab Absent (.); Lyme IgG P28 Ab Absent (.); Lyme IgG P30 Ab Absent (.); Lyme IgG P39 Ab Absent (.); Lyme IgG P41 Ab Absent (.); Lyme IgG P45 Ab Absent (.); Lyme IgG P58 Ab Absent (.); Lyme IgG P66 Ab Absent (.); Lyme IgG P93 Ab Absent (.); Lyme IgM P23 Ab Absent (.); Lyme IgM P39 Ab Absent (.); Lyme IgM P41 Ab Absent (.)
[2020-07-30 11:09] LABS: Lyme IgG WB Interpretation Negative (.); Lyme IgM WB Interpretation Negative (.); Lyme Scn Total Ab w/Rflx <0.91 ISR (0.00-0.90)
== END ==
DX: G37.9 Demyelinating disease of central nervous system, unspecified (principal)
CPT/HCPCS: 36415; 86617; 86618

== ENCOUNTER 2020-07-24 17:09 | Emergency (ER) | payer MEDICAID, SELFPAY ==
[2020-07-24] VITALS (7 sets, daily range): BP systolic 156–214; BP diastolic 82–129; PULSE 87–117; RESP 16–32; TEMP 37.6; O2SAT 98–100; BMI 42.7
--- NOTE | 2020-07-24 17:30 | CT_ITS ---
STUDY: CT BRAIN WITHOUT CONTRAST REASON FOR EXAM: Female, 24 years old. headache behind eyes on and off x 3 months, HTN RADIATION DOSAGE (If Supplied By Facility): CTDIvol = ( 44.99 ) mGy, DLP = ( 829.85 ) mGycm TECHNIQUE: Transaxial CT imaging of the brain was performed without administration of intravenous contrast material. Individualized dose optimization techniques were used for this CT. COMPARISON: No relevant priors. FINDINGS: Normal soft tissue structures. Normal calvarium. Normal size ventricles and extra-axial spaces for the patient''s age. Normal white matter tracts of the cerebral hemispheres. Normal basal ganglia and thalami. Normal brainstem. Normal cerebellum. There is no intracranial hemorrhage. There are no findings of an acute ischemic infarction. Normal visualized paranasal sinuses. CT/Brain/Head without Contrast IMPRESSION: Normal unenhanced CT scan of the brain. Electronically Signed: Arturo Pozo MD ([place]) at 18:29 EDT , Service support ,
--- NOTE | 2020-07-24 17:31 | EKG12_ITS ---
Test Reason : HYPERTENSION Blood Pressure : / mmHG Vent. Rate : 087 BPM Atrial Rate : 087 BPM P-R Int : 152 ms QRS Dur : 082 ms QT Int : 396 ms P-R-T Axes : 024 -01 -08 degrees QTc Int : 476 ms Normal sinus rhythm Voltage criteria for left ventricular hypertrophy Abnormal ECG Confirmed by SAHRA VARGAS, ROXY ([id number]), proposal editor SATYA FRANKLIN ([id number]) on 07/27/2020 10:08:09 AM Referred By: OVIDIO Confirmed By:ROXY BOCANEGRA MD
--- NOTE | 2020-07-24 17:32 | EDS_ITS ---
HPI History of Present Illness Chief Complaint: Headache Informant: patient and parent Onset/Context/Timing Onset: Weeks Context: Gradual Onset Timing: Waxes and wanes Current Severity: Moderate Maximum Severity: Moderate Narrative Narrative: Patient presents secondary to headache and hypertension. Patient has had ongoing headaches for at least the last 3 weeks. She recently had an MRI that revealed minor white matter disease. She is an appointment to see Frances Tierney this week about her MRI findings and to determine if she needs to be on blood pressure medication. Patient states that her blood pressures been running over 150 systolic for several weeks. Earlier today she felt well with minimal headache and no vision change. This afternoon headache started to worsen when they rechecked her blood pressure was [address] [facility] Medical History Autism Bipolar disorder Fatty liver IBS (irritable bowel syndrome) Migraines Home Medications Control 1 tab DAILY 11/11/15 [History Last Taken Unknown] aripiprazole [Abilify] 7.5 mg PO DAILY 04/05/17 [History Last Taken Unknown] lithium carbonate 300 mg PO BID 04/05/17 [History Last Taken Unknown] omeprazole 40 mg PO DAILY 04/05/17 [History Last Taken Unknown] norgestimate-ethinyl estradiol 1 tab PO DAILY 01/07/19 [History Last Taken Unknown] promethazine 25 mg PO Q6H PRN PRN #10 tab 01/07/19 [Rx Last Taken Unknown] naproxen 500 mg PO BID #20 tab 03/25/19 [Rx Last Taken Unknown] albuterol sulfate 1 - 2 puff INHALATION Q4H PRN PRN #1 inhaler 05/27/20 [Rx Last Taken Unknown] metoprolol tartrate 25 mg PO BID #30 tab 07/24/20 [Rx Last Taken Unknown] Allergy/AdvReac Type Severity Reaction Status Date / Time pollen extracts Allergy Hives Verified 07/24/20 17:12 escitalopram [From Lexapro] AdvReac Other Verified 07/24/20 17:12 lactase [From Dairy Aid] AdvReac Upset Verified 07/24/20 17:12 Stomach ondansetron AdvReac Nausea Verified 07/24/20 17:12 [From Zofran (as hydrochloride)] Social History Smoking Status: Never smoker ROS ROS ED Constitutional Constitutional ED: Denies chills or fever(s) Eyes Eyes: Reports blurry vision ENT ENT ED: Denies sore throat Cardiovascular Cardiovascular: Denies chest pain Respiratory/Chest Respiratory/Chest: Denies cough or dyspnea Gastrointestinal Gastrointestinal: Reports nausea; Denies abdominal pain, diarrhea or vomiting Genitourinary Genitourinary ED: Denies dysuria Musculoskeletal Musculoskeletal: Denies back pain Integumentary Denies rash Neurologic Neurologic: Reports headache(s); Denies paresthesias or weakness Psychiatric Psychiatric: Denies anxiety or depression Endocrine Endocrinology: Denies polydipsia or polyuria Allergic/Immunologic Allergic/Immunologic ED: Denies urticaria EXAM Physical Exam Const Vital Signs: 07/24/20 17:10 07/24/20 17:44 07/24/20 18:29 Temperature 99.6 F H Temperature Source Temporal Pulse Rate 117 H 88 89 Respiratory Rate 18 18 32 H Blood Pressure 214/107 H 156/90 H 163/102 H Blood Pressure Mean 142 112 122 Pulse Ox 99 98 100 Oxygen Delivery Method Room Air Room Air Room Air 07/24/20 19:33 07/24/20 19:34 07/24/20 21:09 Temperature Temperature Source Pulse Rate 87 88 87 Respiratory Rate 16 19 H 18 Blood Pressure 207/129 H 160/90 H 159/82 H Blood Pressure Mean 155 113 107 Pulse Ox 98 99 98 Oxygen Delivery Method Room Air Room Air Room Air Positive well nourished and well developed General Appearance ED: well developed HEENT Reports normocephalic and head/scalp atraumatic Eyes PERRL and EOMs intact bilaterally Neck supple Chest Wall inspection of chest normal and palpation of chest normal Resp normal respiratory effort and clear to auscultation bilaterally Cardio regular rate and regular rhythm GI normal to inspection, nondistended, normoactive bowel sounds Palpation: soft Back/Spine no CVA tenderness Extremity normal to inspection Neuro oriented x3 and no sensory deficits noted Sensorium / Orientation: alert Motor Exam: strength 5/5 throughout Psych mental status grossly normal Skin no rashes or lesions noted MDM MDM MDM Narrative Medical decision making narrative: Patient was placed on panel monitor. EKG, head CT, labs ordered. Patient was initially given Reglan and Benadryl for headache. Lab Data Attestation: I reviewed the patient's lab results. Labs: Laboratory Results - last 24 hr 07/24/20 07/24/20 07/24/20 17:25 17:45 17:45 WBC 7.7 RBC 4.61 Hgb 11.5 L Hct 36.8 L MCV 79.8 L MCH 24.9 L MCHC 31.3 L RDW Std Deviation 44.2 H RDW Coeff of Delmy 15.2 H Plt Count 371 MPV 9.5 Immature Gran % (Auto) 0.300 Neut % (Auto) 58.6 Lymph % (Auto) 30.1 Anderson % (Auto) 9.3 Eos % (Auto) 1.2 Baso % (Auto) 0.5 Absolute Neuts (auto) 4.5 Absolute Lymphs (auto) 2.33 Nucleated RBC % 0 Sodium 140 Potassium 3.4 L Chloride 106 Carbon Dioxide 28.0 Anion Gap 6 BUN 9 Creatinine 0.49 L Estim Creat Clear Calc 167.16 Est GFR (MDRD) Af Amer 199 Est GFR (MDRD) Non-Af 165 BUN/Creatinine Ratio 18.3 Glucose 97 Calcium 8.5 Serum , Qual Urine Color Yellow Urine Clarity Sl. Cloudy Urine pH 7.0 Ur Specific [place] 1.015 Urine Protein 30 H Urine Glucose (UA) Normal Urine Ketones Negative Urine Occult Blood Negative Urine Nitrite Negative Urine Bilirubin Negative Urine Urobilinogen Normal Ur Leukocyte Esterase 25 H Urine RBC 0 SEEN Urine WBC 0-5 SEEN Ur Squamous Epith Cells 0-5 SEEN Urine Bacteria RARE Urine Mucus 0 SEEN [place] 07/24/20 07/24/20 17:45 17:45 WBC RBC Hgb Hct MCV MCH MCHC RDW Std Deviation RDW Coeff of Delmy Plt Count MPV Immature Gran % (Auto) Neut % (Auto) Lymph % (Auto) Anderson % (Auto) Eos % (Auto) Baso % (Auto) Absolute Neuts (auto) Absolute Lymphs (auto) Nucleated RBC % Sodium Potassium Chloride Carbon Dioxide Anion Gap BUN Creatinine Estim Creat Clear Calc Est GFR (MDRD) Af Amer Est GFR (MDRD) Non-Af BUN/Creatinine Ratio Glucose Calcium Serum , Qual NEGATIVE Urine Color Urine Clarity Urine pH Ur Specific [place] Urine Protein Urine Glucose (UA) Urine Ketones Urine Occult Blood Urine Nitrite Urine Bilirubin Urine Urobilinogen Ur Leukocyte Esterase Urine RBC Urine WBC Ur Squamous Epith Cells Urine Bacteria Urine Mucus [place] < 0.20 L Radiography Chest X-Ray - ED: 1 View, Read by ED Physician and - (Poor inspiration. No acute finding noted.) Diagnostic Testing: Radiology Impression Brain CT 07/24/20 17:30 IMPRESSION: Normal unenhanced CT scan of the brain. Electronically Signed: Arturo Pozo MD ([place]) at 18:29 EDT , Service support , Chest X-Ray 07/24/20 18:16 IMPRESSION: Nonacute portable x-ray examination of the chest. Electronically Signed: Arturo Pozo MD ([place]) at 18:30 EDT , Service support , Chest CTA 07/24/20 19:33 IMPRESSION: 1. Technical limitations to the study. 2. No central/large pulmonary embolism. 3. Recommend ultrasonography of the lower extremity venous system for further risk stratification. 4. Hepatic steatosis and severe hepatomegaly. Hepatology referral advised. Electronically Signed: Darwin Lau MD at 20:34 EDT Tel , Service support , EKG Initial EKG: Attestation: I personally reviewed and interpreted this EKG as follows: Interpretation: Sinus Rhythm (Sinus 87 with no acute ischemia.) Treatment and Re-Evaluation Comments:: After head CT revealed no evidence of bleed Toradol was ordered for headache as well. Patient had initially been ordered labetalol due to her blood pressure of 214/107 in triage, however first blood pressure in the room was 159 systolic. This was held for a time, but patient's blood pressure did remain in the 160s. She was given a dose of labetalol. Nursing staff did note that the patient had significant difference in blood pressure readings between the 2 arms. In light of this a CTA of the chest was obtained. No obvious abnormalities noted here. On repeat evaluation patient is resting comfortably and states her headache is significantly improved. She will be started on metoprolol 25 mg twice daily for blood pressure control. She has an appointment with her doctor in 2 days. Discharge Plan Triage Chief Complaint: Headache ED Provider: Sarah Purdy Dx/Rx/DC Orders Clinical Impression: Hypertension, Cephalgia Instructions: ED Headache Unspecified, ED Hypertension, New (Begin Treatment) Prescriptions: New metoprolol tartrate 25 mg tablet 25 mg PO BID Qty: 30 RF: 0 No Action Control 1 tab DAILY RF: 0 omeprazole 40 MG capsule,delayed release(DR/EC) 40 mg PO DAILY RF: 0 lithium carbonate 300 MG capsule 300 mg PO BID RF: 0 aripiprazole [Abilify] 15 MG tablet 7.5 mg PO DAILY RF: 0 norgestimate-ethinyl estradiol 1 TABLET tablet 1 tab PO DAILY RF: 0 promethazine 25 MG tablet 25 mg PO Q6H PRN PRN (Reason: Nausea) Qty: 10 RF: 0 naproxen 500 MG tablet 500 mg PO BID Qty: 20 RF: 0 albuterol sulfate 1 INHALER inhaler 1 - 2 puff INHALATION Q4H PRN PRN (Reason: Wheezing) Qty: 1 RF: 0 Primary Care Provider: [facility] Frances Trotter Referrals: [facility] Frances Trotter [Primary Care Provider] - Keep Bruna appointment Disposition Disposition: Home, self care
[2020-07-24 17:46] LABS: Mucous, Urine 0 SEEN /hpf (<or=2+); Red Blood Cells-Urine 0 SEEN /hpf (0-5)
[2020-07-24 17:52] LABS: Color, Urine Yellow (Yellow); Glucose, Dipstick Normal (Normal); Ketone-Dipstick Negative (Negative); Leukocyte Esterase-Dipstick 25 /ul (Negative); Nitrite-Dipstick Negative (Negative); Occult Blood-Urine Negative /ul (Negative); Protein-Dipstick 30 mg/dl (Negative); Specific Gravity, Urine 1.015 (1.002-1.030); Urine Bilirubin Dipstick Negative (Negative); Urine Clarity Sl. Cloudy (Clear); Urine Urobilinogen Normal (Normal)
[2020-07-24] MEDS: Metoclopramide 10 MG/2 ML Vial 5 MG IV (18:01)
[2020-07-24] MEDS: DiphenhydrAMINE 50 MG/ML Syringe 25 MG IV (18:01)
[2020-07-24 18:02] LABS: Absolute Lymphocyte Count 2.33 X10^3/uL (0.83-4.51); Absolute Neutrophil Count 4.5 X10^3/uL (2.0-7.7); Basophil# 0.04 X10^3/uL; Basophil% 0.5 % (0-1); Eosinophil# 0.09 X10^3/uL; Eosinophils% 1.2 % (0-5); Hematocrit 36.8 % (37-47); Hemoglobin 11.5 g/dL (12.0-15.0); Lymphocyte # 2.33 X10^3/ul (0.83-4.51); Lymphocyte % 30.1 % (19-41); Mean Corp Hgb Conc 31.3 g/dL (32-36); Mean Corpuscular Hgb 24.9 pg (27.0-32.0); Mean Corpuscular Volume 79.8 fL (81-99); Mean Platelet Vol. 9.5 fl (6.2-12.0); Monocyte# 0.72 X10^3/uL; Monocyte% 9.3 % (0-10); NRBC Flagged by Analyzer 0 % (0-5); Neutrophil # 4.53 X10^3/uL (2.7-7.7); Neutrophil % 58.6 % (47-70); Platelet Count 371 K/mm3 (150-450); RBC Distribution Width CV 15.2 % (11.6-14.6); RBC Distribution Width SD 44.2 fl (35.1-43.9); Red Blood Count 4.61 M/mm3 (4.2-5.4); White Blood Count 7.7 K/mm3 (4.4-11.0)
[2020-07-24 18:10] LABS: Bacteria RARE /hpf (None Seen); Squamous Epithelial Cells - UA 0-5 SEEN /hpf (5-10); White Blood Cells 0-5 SEEN /hpf (0-5)
[2020-07-24 18:10] LABS: Anion Gap 6 (5-15); BUN 9 mg/dL (7-18); BUN/Creat Ratio 18.3 RATIO (10-20); Calcium,Total 8.5 mg/dL (8.5-10.1); Chloride 106 mmol/L (98-107); Creatinine, Serum 0.49 mg/dL (0.55-1.02); EST Glomerular Filtration Rate 165 mL/min (>60); Est Glom Filt Rate - Afr Amer 199 mL/min (>60); Estimated Creatinine Clearance 167.16 ml/min; Glucose 97 mg/dL (74-106); Potassium 3.4 mmol/L (3.5-5.1); Sodium Level 140 mmol/L (136-145)
--- NOTE | 2020-07-24 18:16 | RAD_ITS ---
STUDY: X-RAY CHEST REASON FOR EXAM: Female, 24 years old. cp TECHNIQUE: AP COMPARISON: 05/27/2020 FINDINGS: EKG leads project over the chest. The lungs are clear and expanded. There is no demonstrated pleural abnormality. Normal size heart. Normal mediastinum and daysi. Normal visualized pulmonary arteries. Normal visualized aortic arch and descending thoracic aorta. Stable fusion hardware of the thoracolumbar spine. Normal visualized ribs, clavicles, and shoulders. There is no demonstrated abnormality of the visualized soft tissue structures of the upper abdomen. RAD/Chest 1 View (Portable) IMPRESSION: Nonacute portable x-ray examination of the chest. Electronically Signed: Arturo Pozo MD ([place]) at 18:30 EDT , Service support ,
[2020-07-24 18:33] LABS: Internal QC Validated? YES +Cl - CLEAR BKGD; Pregnancy, Serum, hCG Quali. NEGATIVE Negative
[2020-07-24] MEDS: Ketorolac 30 MG/ML Syringe IV (18:36)
[2020-07-24 18:41] LABS: Lithium < 0.20 mmol/L (0.60-1.20)
[2020-07-24] MEDS: Labetalol (Prefilled) 20 MG/4 ML 10 MG IV (18:48)
--- NOTE | 2020-07-24 19:33 | CT_ITS ---
STUDY: CTA CHEST REASON FOR EXAM: Female, 24 years old. Hypertension headache RADIATION DOSAGE (If Supplied By Facility): CTDIvol = ( 15.04 ) mGy, DLP = ( 440.41 ) mGycm TECHNIQUE: The examination was performed with the intravenous administration of IV 100mL [id number]-370. Post-processing of the angiographic images was performed, with multiplanar reformation and 3D reconstruction. Individualized dose optimization techniques were used for this CT. COMPARISON: None. FINDINGS: Examination is technically limited due to patient''s large body habitus resulting in elevated image noise. There is respiratory motion artifact due to suboptimal breath-holding. Central pulmonary arteries are assessable. Segmental and subsegmental branches are not. There is no large or central pulmonary embolism. Pulmonary arteries are normal in size. Right heart is normal. Left heart is normal. Pericardium is normal Lungs are suboptimally seen due to obscuration of lung parenchyma by motion artifact. There is no pneumothorax, pulmonary edema, pleural effusions or lobar consolidations. Osseous structures are intact with mid to lower thoracic pedicular screws and vertical station rods. Liver is massively enlarged and fatty infiltrated. Spleen is moderately enlarged. CT/CTA Chest W/WO Contrast IMPRESSION: 1. Technical limitations to the study. 2. No central/large pulmonary embolism. 3. Recommend ultrasonography of the lower extremity venous system for further risk stratification. 4. Hepatic steatosis and severe hepatomegaly. Hepatology referral advised. Electronically Signed: Darwin Lau MD at 20:34 EDT Tel , Service support ,
[2020-07-24] MEDS: Metoprolol Tartrate 25 MG Tablet PO (21:07)
== END 2020-07-24 21:33 | disposition home or self-care (01) ==
PROVIDERS: Emergency Provider Emergency Medicine
DX: I10 Essential (primary) hypertension (principal); R51.9 Headache, unspecified; F31.9 Bipolar disorder, unspecified; F84.0 Autistic disorder; K76.0 Fatty (change of) liver, not elsewhere classified; K58.9 Irritable bowel syndrome, unspecified; G43.909 Migraine, unspecified, not intractable, without status migrainosus; Z79.899 Other long term (current) drug therapy
CPT/HCPCS: 70450; 71045; 71275; 80048; 80178; 81001; 84703; 85025; 93005; 96374; 96375; 99285; Q9967; A4216

== ENCOUNTER → 2020-07-26 15:28 | Outpatient (CLI) | payer MEDICAID, SELFPAY ==
[2020-07-24 17:10] VITALS: BMI 42.7
[2020-07-26 15:44] LABS: Lyme Ab Screen Interpretation REF LAB
[2020-07-26 17:40] LABS: D-Dimer Quantitative (DVT/PE) 0.31 FEU/ug/m (0.27-0.49)
[2020-07-26 17:46] LABS: Iron 23 ug/dL (50-170); Iron Binding Capacity,Total 476 ug/dL (250-450); PERCENT IRON SATURATION 4.8 % (15.0-55.0)
[2020-07-26 17:50] LABS: Vitamin B12 447 pg/mL (211-911)
[2020-07-27 16:19] LABS: Ferritin 46 ng/mL (8-252)
[2020-07-28 20:28] LABS: Lyme AB/Total Immuno < 0.91 ISR (0.00-0.90); Lyme Scn Total Ab w/Rflx <0.91 ISR (0.00-0.90)
== END ==
PROVIDERS: PCP Nurse Practitioner Adult Health; Referring Provider Nurse Practitioner Adult Health; Visit Provider Nurse Practitioner Adult Health
DX: I10 Essential (primary) hypertension (principal); G37.9 Demyelinating disease of central nervous system, unspecified; D64.9 Anemia, unspecified; G43.109 Migraine with aura, not intractable, without status migrainosus; R16.2 Hepatomegaly with splenomegaly, not elsewhere classified
CPT/HCPCS: 36415; 82607; 82728; 83540; 83550; 85379; 86618

== ENCOUNTER → 2020-08-03 09:36 | Outpatient (CLI) | payer MEDICAID, SELFPAY ==
[2020-07-24 17:10] VITALS: BMI 42.7
[2020-08-03 11:09] LABS: Lipase 101 U/L (73-393)
== END ==
PROVIDERS: PCP Nurse Practitioner Adult Health; Visit Provider Nurse Practitioner Adult Health
DX: R19.7 Diarrhea, unspecified (principal)
CPT/HCPCS: 36415; 82274; 83690

== ENCOUNTER → 2020-08-06 09:36 | Outpatient (CLI) | payer MEDICAID, SELFPAY ==
[2020-07-24 17:10] VITALS: BMI 42.7
[2020-08-06 10:38] LABS: CRP 8.33 mg/L (0.0-3.0); Rheumatoid Factor < 10.0 IU/mL (<15); Thyroid Stim Hormone (TSH) 2.19 uIU/mL (0.358-3.74)
== END ==
PROVIDERS: PCP Nurse Practitioner Adult Health; Referring Provider Psychiatry & Neurology Neurology; Visit Provider Psychiatry & Neurology Neurology
DX: R20.2 Paresthesia of skin (principal)
CPT/HCPCS: 36415; 82175; 83655; 83825; 84165; 84166; 84443; 86140; 86431

== ENCOUNTER → 2020-09-03 08:29 | Outpatient (CLI) | payer MEDICAID, SELFPAY ==
[2020-07-24 17:10] VITALS: BMI 42.7
[2020-09-03 10:12] LABS: Erythrocyte Sedimentation Rate 25 mm/hr (0-30); Vitamin B12 452 pg/mL (211-911)
[2020-09-03 10:25] LABS: Ferritin 47 ng/mL (8-252); Iron 39 ug/dL (50-170)
== END ==
PROVIDERS: PCP Nurse Practitioner Adult Health; Referring Provider Registered Nurse; Visit Provider Registered Nurse
DX: D50.8 Other iron deficiency anemias (principal); R20.2 Paresthesia of skin
CPT/HCPCS: 36415; 82607; 82728; 83540; 85652

== ENCOUNTER → 2020-09-13 20:00 | Outpatient (CLI) | payer MEDICAID, SELFPAY ==
[2020-07-24 17:10] VITALS: BMI 42.7
== END ==
PROVIDERS: PCP Nurse Practitioner Adult Health; Visit Provider Psychiatry & Neurology Neurology
DX: G47.10 Hypersomnia, unspecified (principal)
CPT/HCPCS: 95810

== ENCOUNTER 2020-10-13 16:52 | Emergency (ER) | payer MEDICAID, SELFPAY ==
[2020-10-13 16:53] VITALS: BP 154/90; PULSE 74; RESP 16; TEMP 36.6; O2SAT 100; BMI 42.4
--- NOTE | 2020-10-13 17:51 | RAD_ITS ---
STUDY: X-RAY - PELVIS AND RIGHT HIP REASON FOR EXAM: Female, 24 years old. Injury/Pain TECHNIQUE: 3 views of the pelvis and hip. COMPARISON: None. FINDINGS: There is a non-specific bowel gas pattern. Normal visualized soft tissue structures. Normal bilateral iliac wings, sacroiliac joints and visualized sacrum. Normal bilateral superior and inferior pubic rami. Normal pubic symphysis. Normal bilateral ischial tuberosities. Normal visualized femoral head. Normal acetabulum. Normal hip joint. RAD/HIP, UNI W/ Pelvis 2-3 Views IMPRESSION: Normal x-ray examination of the pelvis and hip. Electronically Signed: Nazario Silva MD at 19:07 EDT , Service support ,
--- NOTE | 2020-10-13 17:51 | RAD_ITS ---
STUDY: X-RAY - THORACIC SPINE REASON FOR EXAM: Female, 24 years old. Injury/Pain TECHNIQUE: 3 view(s) of the thoracic spine were obtained. COMPARISON: None. FINDINGS: There is an increase in the normal thoracic kyphosis. No significant scoliosis. Bilateral MONTES rods seen from T6-L3. No compression fractures. Normal thoracic vertebrae and endplates. There is multilevel disc space narrowing of the thoracic spine. The soft tissue structures are unremarkable. RAD/Thoracic Spine 3 Views IMPRESSION: No acute abnormality. Extensive postsurgical changes. Electronically Signed: Nazario Silva MD at 19:12 EDT , Service support ,
--- NOTE | 2020-10-13 17:51 | RAD_ITS ---
STUDY: X-RAY - LUMBAR SPINE REASON FOR EXAM: Female, 24 years old. Injury/Pain TECHNIQUE: 2 view(s) of the lumbar spine were obtained. COMPARISON: None FINDINGS: No definite acute abnormality. No fractures. No malalignment. There is straightening. Extensive postsurgical changes seen with bilateral MONTES rods extending from T6 down to L3. Normal vertebral bodies and endplates. There is multi-level degenerative disc disease with multi-level disc space narrowing. There is no demonstrated fracture. The soft tissue structures are unremarkable. RAD/Lumbar Spine 2 or 3 Views IMPRESSION: Limited 2 view study of the lumbar spine show no gross acute abnormalities. Extensive postsurgical changes. Electronically Signed: Nazario Silva MD at 19:10 EDT , Service support ,
--- NOTE | 2020-10-13 18:12 | EDS_ITS ---
HPI History of Present Illness Chief Complaint: Numb/Ting Informant: patient and parent Narrative Narrative: Patient is a 24-year-old female presenting with pain of her right foot and numbness of her right lower extremity. Patient has a history of scoliosis with surgical repair. She states that she was sitting on the floor earlier today when she got up in her leg and falling asleep. She felt a crack in is that she had some pain. At seem to get better and then around 3 PM today she went to get up again and felt a crack in her hip on the right side and then her right lower leg felt numb for a few minutes. Later she bent down and felt another crack and since then she has had heaviness in her lower leg as well as pain at the bottom of her foot. She describes as walking on glass. She notes that her bottom leg feels numb. She saw her PCP who sent her to the emergency room for further evaluation. Patient notes has had some mild numbness before but never to this extreme. She never had the pain at the bottom of her foot. She is concerned there could be some screws loose from her spinal fusion. She denies any bowel or bladder incontinence. She denies any perineal numbness. She denies any new trauma or injuries. No other complaints at this time. [facility] Medical History Autism Bipolar disorder Fatty liver IBS (irritable bowel syndrome) Migraines Home Medications Control 1 tab DAILY 11/11/15 [History Last Taken Unknown] aripiprazole [Abilify] 7.5 mg PO DAILY 04/05/17 [History Last Taken Unknown] lithium carbonate 300 mg PO BID 04/05/17 [History Last Taken Unknown] omeprazole 40 mg PO DAILY 04/05/17 [History Last Taken Unknown] norgestimate-ethinyl estradiol 1 tab PO DAILY 01/07/19 [History Last Taken Unknown] promethazine 25 mg PO Q6H PRN PRN #10 tab 01/07/19 [Rx Last Taken Unknown] naproxen 500 mg PO BID #20 tab 03/25/19 [Rx Last Taken Unknown] albuterol sulfate 1 - 2 puff INHALATION Q4H PRN PRN #1 inhaler 05/27/20 [Rx Last Taken Unknown] metoprolol tartrate 25 mg PO BID #30 tab 07/24/20 [Rx Last Taken Unknown] Allergy/AdvReac Type Severity Reaction Status Date / Time pollen extracts Allergy Hives Verified 10/13/20 16:56 escitalopram [From Lexapro] AdvReac Other Verified 10/13/20 16:56 lactase [From Dairy Aid] AdvReac Upset Verified 10/13/20 16:56 Stomach ondansetron AdvReac Nausea Verified 10/13/20 16:56 [From Zofran (as hydrochloride)] Social History Smoking Status: Never smoker ROS ROS ED Constitutional Constitutional ED: Denies chills or fever(s) Eyes Eyes: Denies blurry vision or change in vision Cardiovascular Cardiovascular: Denies chest pain Respiratory/Chest Respiratory/Chest: Denies cough or dyspnea Gastrointestinal Gastrointestinal: Denies abdominal pain, constipation, diarrhea, nausea or vomiting Genitourinary Genitourinary ED: Denies dysuria or hematuria Musculoskeletal Musculoskeletal: Reports other Details: right leg pain ; Denies myalgias Integumentary Denies rash Neurologic Neurologic: Reports paresthesias RLE and weakness; Denies headache(s) Psychiatric Psychiatric: Denies anxiety or depression EXAM Physical Exam Const Vital Signs: 10/13/20 16:53 10/13/20 20:51 Temperature 97.9 F Temperature Source Temporal Pulse Rate 74 Respiratory Rate 16 18 Blood Pressure 154/90 H Blood Pressure Mean 111 Pulse Ox 100 Oxygen Delivery Method Room Air Positive well nourished, well developed and obese General Appearance ED: well developed Nutritional Appearance: obese HEENT Reports moist mucous membranes Negative for trauma Eyes PERRL and EOMs intact bilaterally Neck no lymphadenopathy and supple Chest Wall inspection of chest normal Resp normal respiratory effort and clear to auscultation bilaterally Cardio regular rate and regular rhythm GI normal to inspection, nondistended, normoactive bowel sounds Back/Spine no CVA tenderness Thoracic Spine / Upper Back: Negative for thoracic spinal tenderness or paraspinal muscle tenderness Lumbar Spine / Lower Back: Negative for lumbar spinal tenderness Extremity normal to inspection Extremity Narrative: No deformity of the right lower extremity. 5 out of 5 strength of the right foot with plantar and dorsiflexion. 5 out of 5 strength with hip flexion. Compartments are soft. No bony tenderness. Normal range of motion. General Extremety ED: Negative for edema or tenderness General Extremity: Negative for edema Neuro oriented x3 and no sensory deficits noted Neuro Narrative: Patient complains of paresthesias however she has intact sensation to light touch diffusely. Her paresthesias are diffuse of the lower extremity below the level of the knee. Do not follow a dermatomal distribution. On her foot she has intact discrimination between sharp and light touch. 1+ bilateral patellar reflexes. No clonus appreciated. Sensorium / Orientation: alert Motor Exam: strength 5/5 throughout Psych mental status grossly normal Skin no rashes or lesions noted MDM MDM MDM Narrative Medical decision making narrative: Patient evaluated for pain in her right lower leg as well as new onset paresthesias. She has subjective paresthesias and sensation is intact to light tough diffusely. No red flag symptoms for cauda equina or epidural abscess. The paresthesias are diffuse throughout the lower leg and foot and do not follow a dermatomal pattern. They are also unilateral. THis makes my suspicion for a systemic process or neuropathy much less likely. X rays do not show any acute process or abnormality of her hardware. She does have some improvement with NSAIDs and ambulates without difficulty. I do not think she requires emergent MRI at this time. Stable for out patient follow up. Radiography X-Ray: Read by ED Physician, Read by Radiologist and Normal Diagnostic Testing: Radiology Impression Hip/Pelvis X-Ray 10/13/20 17:51 IMPRESSION: Normal x-ray examination of the pelvis and hip. Electronically Signed: Nazario Silva MD at 19:07 EDT , Service support , Lumbar Spine X-Ray 10/13/20 17:51 IMPRESSION: Limited 2 view study of the lumbar spine show no gross acute abnormalities. Extensive postsurgical changes. Electronically Signed: Nazario Silva MD at 19:10 EDT , Service support , Thoracic Spine X-Ray 10/13/20 17:51 IMPRESSION: No acute abnormality. Extensive postsurgical changes. Electronically Signed: Nazario Silva MD at 19:12 EDT , Service support , Ankle X-Ray 10/13/20 18:20 IMPRESSION: Normal x-ray examination of the ankle. Electronically Signed: Nazario Silva MD at 19:08 EDT , Service support , Discharge Plan Triage Chief Complaint: Numb/Ting ED Provider: Coni Angelo Dx/Rx/DC Orders Clinical Impression: Paresthesia of right leg, Acute pain of right foot Instructions: ED Pain, Acute, Uncertain Cause, ED Paraesthesias Prescriptions: No Action Control 1 tab DAILY RF: 0 omeprazole 40 MG capsule,delayed release(DR/EC) 40 mg PO DAILY RF: 0 lithium carbonate 300 MG capsule 300 mg PO BID RF: 0 aripiprazole [Abilify] 15 MG tablet 7.5 mg PO DAILY RF: 0 norgestimate-ethinyl estradiol 1 TABLET tablet 1 tab PO DAILY RF: 0 promethazine 25 MG tablet 25 mg PO Q6H PRN PRN (Reason: Nausea) Qty: 10 RF: 0 naproxen 500 MG tablet 500 mg PO BID Qty: 20 RF: 0 albuterol sulfate 1 INHALER inhaler 1 - 2 puff INHALATION Q4H PRN PRN (Reason: Wheezing) Qty: 1 RF: 0 metoprolol tartrate 25 mg tablet 25 mg PO BID Qty: 30 RF: 0 Primary Care Provider: Vani Carlson Referrals: Vani Carlson, [facility] [Primary Care Provider] - Activity Restrictions/Additional Instructions: Alternate Tylenol and ibuprofen as needed for pain. Please follow-up with your primary care provider for further evaluation of this. Disposition Disposition: Home, Self Care Discharge Date/Time: 10/13/20 20:51
[2020-10-13] MEDS: Ibuprofen 600 MG Tablet PO (18:20)
--- NOTE | 2020-10-13 18:20 | RAD_ITS ---
STUDY: X-RAY - RIGHT ANKLE REASON FOR EXAM: Female, 24 years old. Injury/Pain TECHNIQUE: 3 view(s) of the ankle. COMPARISON: None. FINDINGS: Normal visualized distal tibia and fibula. Normal medial and lateral malleoli. Normal tibiotalar articulation and ankle mortise. Normal visualized talus and calcaneus. The visualized subtalar, talonavicular, calcaneocuboid and tarsal articulations are normal. There is no demonstrated fracture. The soft tissue structures are unremarkable. RAD/Ankle min 3 Views IMPRESSION: Normal x-ray examination of the ankle. Electronically Signed: Nazario Silva MD at 19:08 EDT , Service support ,
[2020-10-13 20:51] VITALS: RESP 18
== END 2020-10-13 20:51 | disposition home or self-care (01) ==
PROVIDERS: Emergency Provider Emergency Medicine; PCP Nurse Practitioner Adult Health
DX: R20.2 Paresthesia of skin (principal); M79.671 Pain in right foot; E66.9 Obesity, unspecified; Z68.41 Body mass index [BMI] 40.0-44.9, adult; F31.9 Bipolar disorder, unspecified; F84.0 Autistic disorder; K76.0 Fatty (change of) liver, not elsewhere classified; K58.9 Irritable bowel syndrome, unspecified; G43.909 Migraine, unspecified, not intractable, without status migrainosus; Z98.1 Arthrodesis status; Z79.899 Other long term (current) drug therapy
CPT/HCPCS: 72072; 72100; 73502; 73610; 99283

== ENCOUNTER → 2020-10-21 09:02 | Outpatient (CLI) | payer MEDICAID, SELFPAY ==
[2020-10-21 10:28] LABS: ALB/GLOB Ratio 0.8 RATIO (0.9-2.4); AST(SGOT) 20 U/L (15-37); Alanine Aminotransfer ALT/SGPT 37 U/L (13-56); Albumin, Serum 3.1 g/dL (3.2-5.0); Alkaline Phosphatase 52 U/L (45-117); Anion Gap 6 (5-15); BUN 7 mg/dL (7-18); BUN/Creat Ratio 12.3 RATIO (10-20); Calcium,Total 8.6 mg/dL (8.5-10.1); Chloride 107 mmol/L (98-107); Creatinine, Serum 0.57 mg/dL (0.55-1.02); EST Glomerular Filtration Rate 139 mL/min (>60); Est Glom Filt Rate - Afr Amer 168 mL/min (>60); Globulin 3.9 g/dL (2.2-4.2); Glucose 112 mg/dL (74-106); Potassium 4.1 mmol/L (3.5-5.1); Sodium Level 139 mmol/L (136-145); Thyroid Stim Hormone (TSH) 1.97 uIU/mL (0.358-3.74)
== END ==
PROVIDERS: PCP Nurse Practitioner Adult Health; Referring Provider Registered Nurse; Visit Provider Registered Nurse
DX: F31.81 Bipolar II disorder (principal)
CPT/HCPCS: 36415; 80053; 80178; 84443

== ENCOUNTER → 2020-11-26 07:31 | Outpatient (CLI) | payer MEDICAID, SELFPAY ==
--- NOTE | 2020-11-26 07:34 | US_ITS ---
EXAM: US ABDOMEN LIMITED, RIGHT UPPER QUADRANT CLINICAL INDICATION: ABD PAIN TECHNIQUE: Real-time ultrasound of the right upper quadrant with image documentation. This report was created using [employer] report generation technology. COMPARISON: None. FINDINGS: LIMITATIONS: Limited due to patient condition. LIVER: The liver is enlarged measuring 19 cm. Increased echogenicity of the liver is nonspecific but most commonly associated with hepatic steatosis. No hepatic masses. GALLBLADDER: Distended. No shadowing gallstone. No gallbladder wall thickening is demonstrated. No pericholecystic fluid. Negative sonographic Hansen''s sign. COMMON BILE DUCT: Unremarkable as visualized. The proximal common bile duct is within normal limits for the patient''s age. PANCREAS: Largely obscured. No focal abnormality is demonstrated in the pancreas. No pancreatic ductal dilatation. RIGHT KIDNEY: Unremarkable. There is no hydronephrosis. No shadowing calculus. No focal lesion or perinephric collection is demonstrated. US/Abdomen Limited IMPRESSION: 1. Hepatomegaly. 2. Increased echogenicity of the liver is nonspecific but most commonly associated with hepatic steatosis. Electronically Signed: Arturo Pozo MD ([place]) at 8:29 EDT , Service support ,
== END ==
PROVIDERS: PCP Nurse Practitioner Adult Health
DX: R10.9 Unspecified abdominal pain (principal)
CPT/HCPCS: 76705

== ENCOUNTER 2020-12-05 13:56 | Emergency (ER) | payer MEDICAID, SELFPAY ==
[2020-12-05 13:57] VITALS: BP 148/98; PULSE 92; RESP 18; TEMP 36.4; O2SAT 100; BMI 41.9
[2020-12-05] MEDS: SUMAtriptan 6 MG/0.5 ML Vial SC (14:32)
--- NOTE | 2020-12-05 14:39 | EX.ED.VIS.HA ---
HPI History of Present Illness Chief Complaint: Headache Narrative Narrative: Here with mother flare of her migraine symptoms starting at 10 AM this morning. No head trauma. Pain behind the eyes with photophobia phonophobia. Reports aura. Reports nausea and vomiting x1. She took her Depakote this morning and Tylenol with no relief. She does follow with neurology. She is on daily Depakote. Mother states migraines along with autism spectrum disorder with bipolar. Denies fevers. Denies neck pain. Prior similar symptoms: Yes PFSH PFSH Medical History Autism Bipolar disorder Fatty liver IBS (irritable bowel syndrome) Migraines Home Medications Control 1 tab DAILY 11/11/15 [History Last Taken Unknown] aripiprazole [Abilify] 7.5 mg PO DAILY 04/05/17 [History Last Taken Unknown] lithium carbonate 300 mg PO BID 04/05/17 [History Last Taken Unknown] omeprazole 40 mg PO DAILY 04/05/17 [History Last Taken Unknown] norgestimate-ethinyl estradiol 1 tab PO DAILY 01/07/19 [History Last Taken Unknown] promethazine 25 mg PO Q6H PRN PRN #10 tab 01/07/19 [Rx Last Taken Unknown] naproxen 500 mg PO BID #20 tab 03/25/19 [Rx Last Taken Unknown] metoprolol tartrate 25 mg PO BID #30 tab 07/24/20 [Rx Last Taken Unknown] divalproex 500 mg PO DAILY 12/05/20 [History Last Taken Unknown] Allergy/AdvReac Type Severity Reaction Status Date / Time pollen extracts Allergy Hives Verified 12/05/20 14:20 escitalopram [From Lexapro] AdvReac Other Verified 12/05/20 14:20 lactase [From Dairy Aid] AdvReac Upset Verified 12/05/20 14:20 Stomach ondansetron AdvReac Nausea Verified 12/05/20 14:20 [From Zofran (as hydrochloride)] Social History Smoking Status: Never smoker ROS ROS ED Constitutional Constitutional ED: Denies chills, fever(s) or sweats Eyes Eyes: Denies change in vision ENT ENT ED: Denies dysphagia or sore throat Cardiovascular Cardiovascular: Denies chest pain, leg edema, palpitations or racing heartbeat Respiratory/Chest Respiratory/Chest: Denies cough, dyspnea or dyspnea on exertion Gastrointestinal Gastrointestinal: Reports nausea and vomiting; Denies abdominal pain or diarrhea Genitourinary Genitourinary ED: Denies dysuria, hematuria or urinary frequency Musculoskeletal Musculoskeletal: Denies back pain, extremity pain or neck pain Integumentary Denies rash or wounds Neurologic Neurologic: Reports headache(s); Denies paresthesias or weakness EXAM Physical Exam Const Vital Signs: 12/05/20 13:57 12/05/20 15:18 Temperature 97.5 F L Temperature Source Temporal Pulse Rate 92 90 Respiratory Rate 18 18 Blood Pressure 148/98 H 142/69 H Blood Pressure Mean 114 Pulse Ox 100 96 Oxygen Delivery Method Room Air Positive well nourished and well developed General Appearance ED: well developed and NAD HEENT Reports moist mucous membranes normocephalic and atraumatic Eyes PERRL, EOMs intact bilaterally and conjunctivae normal General Eye ED: Yes normal appearance of both eyes Neck no lymphadenopathy and supple Neck Narrative: No meningismus. General: Negative for tenderness Chest Wall Chest: Negative for tenderness Resp normal respiratory effort and normal air movement Effort and Inspection: symmetric chest movement; Negative for respiratory distress Cardio regular rate, regular rhythm and no murmurs Peripheral Pulses: pulses 2+ throughout GI normal to inspection, nondistended, normoactive bowel sounds and non-tender Palpation: Negative for guarding or rebound tenderness present Back/Spine no CVA tenderness and no thoracic nor lumbar tenderness Extremity normal to inspection General Extremety ED: Negative for edema or tenderness General Extremity: Negative for edema Neuro oriented x3, CN's II-XII intact bilaterally and no sensory deficits noted Sensorium / Orientation: awake and alert Skin no rashes or lesions noted and no wounds MDM MDM MDM Narrative Medical decision making narrative: Patient classic migraine presentation similar to the past. There is no meningismus no focal deficits. Patient given Imitrex emergency room with improvement of symptoms. She is tolerating oral intake on reevaluation. Discussed with patient she will discuss with her neurologist for breakthrough Imitrex prescription for outpatient use. She will continue her Depakote. All questions were answered. Discharge Plan Triage Chief Complaint: Headache ED Provider: Jeevan Marie Dx/Rx/DC Orders Clinical Impression: Headache, migraine, Photophobia Instructions: ED, Migraine (Classical) Prescriptions: No Action Control 1 tab DAILY RF: 0 omeprazole 40 MG capsule,delayed release(DR/EC) 40 mg PO DAILY RF: 0 lithium carbonate 300 MG capsule 300 mg PO BID RF: 0 aripiprazole [Abilify] 15 MG tablet 7.5 mg PO DAILY RF: 0 norgestimate-ethinyl estradiol 1 TABLET tablet 1 tab PO DAILY RF: 0 promethazine 25 MG tablet 25 mg PO Q6H PRN PRN (Reason: Nausea) Qty: 10 RF: 0 naproxen 500 MG tablet 500 mg PO BID Qty: 20 RF: 0 metoprolol tartrate 25 mg tablet 25 mg PO BID Qty: 30 RF: 0 divalproex 500 mg tablet extended release 24 hr 500 mg PO DAILY RF: 0 Primary Care Provider: Vani Carlson Referrals: Vani Carlson NP-C [Primary Care Provider] - 1 Week Activity Restrictions/Additional Instructions: Discussed with her neurologist for possible medication with Imitrex for breakthrough headaches. Disposition Disposition: Home, Self Care Discharge Date/Time: 12/05/20 15:25
[2020-12-05 15:18] VITALS: BP 142/69; PULSE 90; RESP 18; O2SAT 96
== END 2020-12-05 15:25 | disposition home or self-care (01) ==
PROVIDERS: Emergency Provider Emergency Medicine; PCP Nurse Practitioner Adult Health
DX: G43.909 Migraine, unspecified, not intractable, without status migrainosus (principal); F31.9 Bipolar disorder, unspecified; F84.0 Autistic disorder; K76.0 Fatty (change of) liver, not elsewhere classified; K58.9 Irritable bowel syndrome, unspecified; Z79.899 Other long term (current) drug therapy
CPT/HCPCS: 96372; 99282; J3030

== ENCOUNTER 2020-12-29 20:16 | Emergency (ER) | payer MEDICAID, SELFPAY ==
[2020-12-29 20:17] VITALS: BP 152/94; PULSE 86; RESP 15; TEMP 36.2; O2SAT 97; BMI 41.5
--- NOTE | 2020-12-29 20:33 | EX.ED.VIS.HA ---
HPI History of Present Illness Chief Complaint: Headache Detail of Chief Complaint: Global headache that started 3 days ago Informant: patient and parent Onset/Context/Timing Onset: Days Context: Gradual Timing: Continuous Quality -Headache: Positive for Similar Prior Headaches Current Severity: Severe Maximum Severity: Severe Worsened by: Photophobia and sonophobia Relieved by: Nothing Associated Symptoms/Injury Associated Symptoms: Positive for Nausea, Vomiting and Photophobia; Negative for Fever, Sore Throat, Sinus Pressure, Numbness, Tingling, Preceding Aura, Visual Changes, Blurred Vision and Visual Loss Injury - COLEMAN: Negative for Direct Trauma Narrative Narrative: Patient is a 25-year-old woman with history of migraine headaches, elevated blood pressure, bipolar affective disorder and autism who presents with headache that started 3 days ago. It is global. It is throbbing. She reports diplopia. She states when she perform finger-nose to finger with her left hand she had double vision however when she perform finger-nose to finger the right hand there was no double vision. She denies ringing or ears decreased hearing. She does report mild rhinorrhea and congestion has been present for over a month. She denies postnasal drainage. Denies sore throat. Denies neck pain or neck stiffness. She does report vomiting 5 times today. No blood or mucus noted in the vomit. There is been no diarrhea. She denies any urologic symptoms. She states she is stiff. Mother states she is always stiff. She denies any new paresthesia or weakness. She denies anesthesia or motor weakness. Patient took Maxalt yesterday with no relief. She is taken Tylenol ibuprofen with no relief. She reports documented fever. Her temperature was 97.7. Prior similar symptoms: Yes Recent Illness/Hospitalization: No PFSH PFSH Medical History Autism Bipolar 1 disorder Bipolar disorder Depression with anxiety Fatty liver IBS (irritable bowel syndrome) Migraines PCOS (polycystic ovarian syndrome) Home Medications aripiprazole [Abilify] 7.5 mg PO DAILY 04/05/17 [History Last Taken Unknown] lithium carbonate 300 mg PO BID 04/05/17 [History Last Taken Unknown] omeprazole 40 mg PO DAILY 04/05/17 [History Last Taken Unknown] promethazine 25 mg PO Q6H PRN PRN #10 tab 01/07/19 [Rx Last Taken Unknown] divalproex 500 mg PO DAILY 12/05/20 [History Last Taken Unknown] losartan 50 mg tablet 50 mg PO DAILY 12/09/20 [History Last Taken Unknown] naproxen 500 mg tablet 500 mg PO BID PRN tab 12/09/20 [History Last Taken Unknown] norgestimate 0.25 mg-ethinyl estradiol 35 mcg tablet 1 tab PO DAILY 12/09/20 [History Last Taken Unknown] Allergy/AdvReac Type Severity Reaction Status Date / Time pollen extracts Allergy Hives Verified 12/29/20 20:17 escitalopram [From Lexapro] AdvReac Other Verified 12/29/20 20:17 lactase [From Dairy Aid] AdvReac Upset Verified 12/29/20 20:17 Stomach ondansetron AdvReac Nausea Verified 12/29/20 20:17 [From Zofran (as hydrochloride)] Family History Mother Uterine cancer Other Asthma Depression Diabetes GERD (gastroesophageal reflux disease) Heart disease Hyperlipidemia Hypertension Surgical History H/O knee surgery H/O spinal fusion History of tonsillectomy and adenoidectomy Social History household members: none housing: apartment current occupational status: unemployed history of recent travel: No Smoking Status: Never smoker alcohol intake: current alcohol intake frequency: holidays/special occasions only substance use type: does not use what type of physical activity do you participate in: walking frequency: daily seatbelt use: always do you feel safe at home: Yes additional social history: single ROS ROS ED Constitutional Constitutional ED: Reports fever(s); Denies chills, subjective, sweats or weight loss Eyes Eyes: Reports diplopia; Denies blurry vision or change in vision ENT ENT ED: Denies ear pain, rhinorrhea or sore throat Cardiovascular Cardiovascular: Denies chest pain, orthopnea, palpitations, paroxysmal nocturnal dyspnea or racing heartbeat Respiratory/Chest Respiratory/Chest: Denies cough, dyspnea, dyspnea on exertion, orthopnea, paroxysmal nocturnal dyspnea or sputum Gastrointestinal Gastrointestinal: Reports nausea and vomiting; Denies abdominal pain, constipation or diarrhea Genitourinary Genitourinary ED: Denies dysuria, hematuria or urinary frequency Musculoskeletal Musculoskeletal: Denies arthralgias, back pain, myalgias or neck pain Integumentary Denies rash Neurologic Neurologic: Denies headache(s) or weakness Psychiatric Psychiatric: Reports depression Endocrine Endocrinology: Denies polydipsia, polyphagia or polyuria Hematologic/Lymphatic Hematologic/Lymphatic: Denies easy bleeding or easy bruising Allergic/Immunologic Allergic/Immunologic ED: Denies mouth swelling, tongue swelling or urticaria EXAM Physical Exam Const Vital Signs: 12/29/20 20:17 Temperature 97.2 F L Temperature Source Temporal Pulse Rate 86 Respiratory Rate 15 Blood Pressure 152/94 H Blood Pressure Mean 113 Pulse Ox 97 Oxygen Delivery Method Room Air Positive well nourished and well developed General Appearance ED: well developed and NAD; Negative for cyanotic, diaphoretic or pallor HEENT Reports normocephalic, TM's clear and moist mucous membranes atraumatic; Negative for temporal artery tenderness or vesicular rash Face and Sinus: Negative for sinus tenderness Tympanic Membrane ED: Yes TM's clear Eyes PERRL and EOMs intact bilaterally General Eye ED: Negative for pale conjunctiva or scleral icterus Neck no lymphadenopathy, supple, no meningeal signs and no JVD Resp normal respiratory effort and clear to auscultation bilaterally Cardio regular rate, regular rhythm, S1 normal heart sound, S2 normal heart sound and no murmurs GI non-tender and non-distended Auscultation: normoactive bowel sounds Palpation: soft Back/Spine no CVA tenderness Cervical Spine: Negative for cervical spine tenderness Thoracic Spine / Upper Back: Negative for thoracic spinal tenderness Lumbar Spine / Lower Back: Negative for lumbar spinal tenderness Extremity normal to inspection, full ROM and normal capillary refill General Extremety ED: Negative for tenderness Neuro oriented x3, CN's II-XII intact bilaterally and no sensory deficits noted Sensorium / Orientation: awake, alert, oriented to person, oriented to place and oriented to time Psych Mood & Affect: depressed Skin General Skin Exam: Negative for jaundice or pallor Lesions: no lesions Rashes: no rashes Nails: normal MDM MDM MDM Narrative Medical decision making narrative: Patient has history of migraines. This is different since it is persistent. Will treat with IV fluids, IV Benadryl, Toradol and Reglan. Will reassess in 30 to 60 minutes. Patient was reassessed at 2225. She was asleep. She was awakened. She states she feels markedly better. Asked if she feels comfortable enough and feels well enough to go home. She responded yes. Discharge Plan Triage Chief Complaint: Headache ED Provider: Mau Smallwood Dx/Rx/DC Orders Clinical Impression: Headache, common migraine, intractable Instructions: ED, Migraine (Classical) Prescriptions: No Action losartan 50 mg tablet 50 mg PO DAILY RF: 0 naproxen 500 mg tablet 500 mg PO BID PRNRF: 0 omeprazole 40 MG capsule,delayed release(DR/EC) 40 mg PO DAILY RF: 0 lithium carbonate 300 MG capsule 300 mg PO BID RF: 0 aripiprazole [Abilify] 15 MG tablet 7.5 mg PO DAILY RF: 0 promethazine 25 MG tablet 25 mg PO Q6H PRN PRN (Reason: Nausea) Qty: 10 RF: 0 norgestimate-ethinyl estradiol 0.25-35 mg-mcg tablet 1 tab PO DAILY RF: 0 divalproex 500 mg tablet extended release 24 hr 500 mg PO DAILY RF: 0 Primary Care Provider: Vani Carlson Referrals: Vani Carlson, [employer]-C [Primary Care Provider] - As Needed Disposition Disposition: Home, Self Care
[2020-12-29] MEDS: 0.9% Normal Saline 1,000 ML 999 ML IV (20:47)
[2020-12-29] MEDS: Ketorolac 15 MG/ML Vial IV (20:47)
[2020-12-29] MEDS: DiphenhydrAMINE 50 MG/ML Syringe 25 MG IV (20:47)
[2020-12-29] MEDS: Metoclopramide 10 MG/2 ML Vial IV (20:48)
== END 2020-12-29 22:41 | disposition home or self-care (01) ==
PROVIDERS: Emergency Provider Emergency Medicine; PCP Nurse Practitioner Adult Health
DX: G43.019 Migraine without aura, intractable, without status migrainosus (principal); E28.2 Polycystic ovarian syndrome; F31.9 Bipolar disorder, unspecified; F84.0 Autistic disorder; K76.0 Fatty (change of) liver, not elsewhere classified; K58.9 Irritable bowel syndrome, unspecified; Z79.899 Other long term (current) drug therapy
CPT/HCPCS: 96361; 96374; 96375; 99284; J7030; A4216

== ENCOUNTER → 2020-12-31 10:22 | Outpatient (CLI) | payer MEDICAID, SELFPAY ==
[2020-12-31 12:53] LABS: ALB/GLOB Ratio 0.7 RATIO (0.9-2.4); AST(SGOT) 27 U/L (15-37); Alanine Aminotransfer ALT/SGPT 43 U/L (13-56); Alkaline Phosphatase 57 U/L (45-117); Anion Gap 7 (5-15); BUN 11 mg/dL (7-18); BUN/Creat Ratio 19.7 RATIO (10-20); Calcium,Total 9.1 mg/dL (8.5-10.1); Chloride 107 mmol/L (98-107); Cholesterol 216 mg/dL (200); Creatinine, Serum 0.56 mg/dL (0.55-1.02); EST Glomerular Filtration Rate 142 mL/min (>60); Est Glom Filt Rate - Afr Amer 172 mL/min (>60); Globulin 4.2 g/dL (2.2-4.2); Glucose 91 mg/dL (74-106); High Density Lipoprotein 41 mg/dL; Iron 37 ug/dL (50-170); Iron Binding Capacity,Total 413 ug/dL (250-450); Potassium 4.1 mmol/L (3.5-5.1); Protein, Total 7.2 g/dL (6.4-8.2); Sodium Level 138 mmol/L (136-145); Triglycerides 240 mg/dL; Very Low Density Lipoprotein 48 mg/dL (5-40)
== END ==
DX: I10 Essential (primary) hypertension (principal)
CPT/HCPCS: 36415; 80053; 80061; 83540; 83550

== ENCOUNTER 2021-01-18 18:43 | Emergency (ER) | payer MEDICAID, SELFPAY ==
[2021-01-18 18:43] VITALS: BP 136/99; PULSE 102; RESP 18; TEMP 36.6; O2SAT 98; BMI 41.6
[2021-01-18 20:17] VITALS: BP 119/73; PULSE 91; RESP 22; O2SAT 97
[2021-01-18 21:11] LABS: Bacteria 0 SEEN /hpf (None Seen); Mucous, Urine 0 SEEN /hpf (<or=2+); Red Blood Cells-Urine 0 SEEN /hpf (0-5)
[2021-01-18 21:12] VITALS: BP 126/52; PULSE 91; RESP 28; TEMP 36.9; O2SAT 97
--- NOTE | 2021-01-18 21:16 | EDS_ITS ---
HPI History of Present Illness Chief Complaint: General Illness Narrative Narrative: 25-year-old female presenting with nausea, vomiting, diarrhea. She states she already had COVID-19 in May. She is been vaccinated. She does have a slight cough but no shortness of breath. She had a low-grade fever earlier today and took Tylenol this is gone. She does complain of dysuria and dark urine. She states she occasionally gets a UTI. [facility] Medical History Autism Bipolar 1 disorder Depression with anxiety Fatty liver IBS (irritable bowel syndrome) Migraines PCOS (polycystic ovarian syndrome) Home Medications aripiprazole [Abilify] 7.5 mg PO DAILY 04/05/17 [History Last Taken Unknown] lithium carbonate 300 mg PO BID 04/05/17 [History Last Taken Unknown] omeprazole 40 mg PO DAILY 04/05/17 [History Last Taken Unknown] divalproex 500 mg PO DAILY 12/05/20 [History Last Taken Unknown] losartan 50 mg tablet 50 mg PO DAILY 12/09/20 [History Last Taken Unknown] naproxen 500 mg tablet 500 mg PO .COMPLEX #30 tab 01/03/21 [Rx Last Taken Unknown] promethazine 25 mg PO TID PRN #14 tab 01/18/21 [Rx Last Taken Unknown] Allergy/AdvReac Type Severity Reaction Status Date / Time pollen extracts Allergy Hives Verified 01/18/21 18:46 escitalopram [From Lexapro] AdvReac Other Verified 01/18/21 18:46 lactase [From Dairy Aid] AdvReac Upset Verified 01/18/21 18:46 Stomach ondansetron AdvReac Anaphylaxis Verified 01/18/21 18:46 [From Zofran (as hydrochloride)] Family History Mother Uterine cancer Other Asthma Depression Diabetes GERD (gastroesophageal reflux disease) Heart disease Hyperlipidemia Hypertension Surgical History H/O knee surgery H/O spinal fusion History of tonsillectomy and adenoidectomy Social History household members: none housing: apartment current occupational status: unemployed history of recent travel: No Smoking Status: Never smoker alcohol intake: current alcohol intake frequency: holidays/special occasions only substance use type: does not use what type of physical activity do you participate in: walking frequency: daily seatbelt use: always do you feel safe at home: Yes additional social history: single ROS ROS ED Constitutional Constitutional ED: Reports chills and fever(s) Eyes Eyes: Denies blurry vision or diplopia ENT ENT ED: Denies rhinorrhea or sore throat Cardiovascular Cardiovascular: Denies chest pain or palpitations Respiratory/Chest Respiratory/Chest: Denies cough or dyspnea Gastrointestinal Gastrointestinal: Reports diarrhea, nausea and vomiting Genitourinary Genitourinary ED: Reports dysuria and other Details: Darkened urine Musculoskeletal Musculoskeletal: Reports myalgias; Denies arthralgias Integumentary Denies abscess or rash Neurologic Neurologic: Denies headache(s) or paresthesias EXAM Physical Exam Const Vital Signs: 01/18/21 18:43 01/18/21 20:17 01/18/21 20:18 Temperature 97.9 F Temperature Source Temporal Pulse Rate 102 H 91 Respiratory Rate 18 22 H Respiratory Effort Normal Non-Labored Blood Pressure 136/99 H 119/73 Blood Pressure Mean 111 88 Pulse Ox 98 97 Oxygen Delivery Method Room Air Room Air 01/18/21 21:12 Temperature 98.4 F Temperature Source Oral Pulse Rate 91 Respiratory Rate 28 H Respiratory Effort Blood Pressure 126/52 H Blood Pressure Mean 76 Pulse Ox 97 Oxygen Delivery Method Room Air Positive well nourished General Appearance ED: NAD HEENT Reports moist mucous membranes Negative for trauma Eyes PERRL and EOMs intact bilaterally Resp normal respiratory effort and clear to auscultation bilaterally Cardio regular rhythm Rate: tachycardic GI normal to inspection, nondistended, normoactive bowel sounds Neuro oriented x3 and CN's II-XII intact bilaterally Sensorium / Orientation: alert MDM MDM MDM Narrative Medical decision making narrative: Patient presenting with viral type symptoms. She is already had COVID-19 and been vaccinated. Her brother has a slight cough and some viral symptoms as well. He also had COVID-19 previously. Patient states that although she is vomiting she is able to drink and eat some food. Sh e just drank a cup of water prior to my entering the room. I do not believe the patient needs a chest x-ray. I will obtain a urinalysis and hCG. I will also give the patient Phenergan IM at her request. Urinalysis negative infection however there is some ketones here. She is likely slightly dehydrated but is able to drink water and eat crackers while she is in the emergency room. I feel she will do well with Phenergan for home. Patient given return precautions. Impression: 1. Viral syndrome Lab Data Labs: Laboratory Results - last 24 hr 01/18/21 21:05 Urine Color Yellow Urine Clarity Sl. Cloudy Urine pH 5.0 Ur Specific [place] 1.025 Urine Protein 30 H Urine Glucose (UA) Normal Urine Ketones 5 H Urine Occult Blood Negative Urine Nitrite Negative Urine Bilirubin Negative Urine Urobilinogen 1 H Ur Leukocyte Esterase 25 H Urine RBC 0 SEEN Urine WBC 0-5 SEEN Ur Squamous Epith Cells 0-5 SEEN Urine Bacteria 0 SEEN Urine Mucus 0 SEEN Urine Test Negative Discharge Plan Triage Chief Complaint: General Illness ED Provider: David Etienne Dx/Rx/DC Orders Instructions: ED Viral Syndrome (Adult) Prescriptions: New promethazine 25 mg tablet 25 mg PO TID PRN (Reason: nausea and vomiting) Qty: 14 RF: 0 No Action losartan 50 mg tablet 50 mg PO DAILY RF: 0 naproxen 500 mg tablet 500 mg PO .COMPLEX Qty: 30 RF: 2 omeprazole 40 MG capsule,delayed release(DR/EC) 40 mg PO DAILY RF: 0 lithium carbonate 300 MG capsule 300 mg PO BID RF: 0 aripiprazole [Abilify] 15 MG tablet 7.5 mg PO DAILY RF: 0 divalproex 500 mg tablet extended release 24 hr 500 mg PO DAILY RF: 0 Primary Care Provider: Vani Carlson Referrals: Vani Carlson, [employer]-C [Primary Care Provider] - Disposition Disposition: Home, Self Care
[2021-01-18 21:18] LABS: Color, Urine Yellow (Yellow); Glucose, Dipstick Normal (Normal); Ketone-Dipstick 5 mg/dl (Negative); Leukocyte Esterase-Dipstick 25 /ul (Negative); Nitrite-Dipstick Negative (Negative); Occult Blood-Urine Negative /ul (Negative); Protein-Dipstick 30 mg/dl (Negative); Specific Gravity, Urine 1.025 (1.002-1.030); Urine Bilirubin Dipstick Negative (Negative); Urine Clarity Sl. Cloudy (Clear); Urine Urobilinogen 1 mg/dl (Normal)
[2021-01-18 21:22] LABS: Internal QC Validated? YES +Cl - CLEAR BKGD; Pregnancy, Urine Negative Negative
[2021-01-18] MEDS: proMETHazine 25 MG/ML Syringe 12.5 MG IM (21:23)
[2021-01-18 21:24] LABS: Squamous Epithelial Cells - UA 0-5 SEEN /hpf (5-10); White Blood Cells 0-5 SEEN /hpf (0-5)
[2021-01-18 22:28] VITALS: BP 138/75; PULSE 92; RESP 12; O2SAT 97
== END 2021-01-18 22:29 | disposition home or self-care (01) ==
PROVIDERS: Emergency Provider Student in an Organized Health Care Education/Training Program; PCP Nurse Practitioner Adult Health
DX: B34.9 Viral infection, unspecified (principal); R11.2 Nausea with vomiting, unspecified; R19.7 Diarrhea, unspecified; R05.9 Cough, unspecified; E28.2 Polycystic ovarian syndrome; F31.9 Bipolar disorder, unspecified; F84.0 Autistic disorder; F41.8 Other specified anxiety disorders; K58.9 Irritable bowel syndrome, unspecified; K76.0 Fatty (change of) liver, not elsewhere classified; G43.909 Migraine, unspecified, not intractable, without status migrainosus; Z86.16 Personal history of COVID-19; Z87.440 Personal history of urinary (tract) infections; Z79.899 Other long term (current) drug therapy
CPT/HCPCS: 81001; 81025; 87426; 96372; 99282

== ENCOUNTER → 2021-01-27 10:38 | Outpatient (CLI) | payer MEDICAID, SELFPAY ==
[2021-01-27 11:51] LABS: Absolute Lymphocyte Count 2.23 X10^3/uL (0.83-4.51); Absolute Neutrophil Count 5.5 X10^3/uL (2.0-7.7); Basophil# 0.03 X10^3/uL; Basophil% 0.4 % (0-1); Eosinophil# 0.11 X10^3/uL; Eosinophils% 1.3 % (0-5); Hematocrit 37.5 % (37-47); Hemoglobin 11.9 g/dL (12.0-15.0); Lymphocyte # 2.23 X10^3/ul (0.83-4.51); Lymphocyte % 26.1 % (19-41); Mean Corp Hgb Conc 31.7 g/dL (32-36); Mean Corpuscular Hgb 26.6 pg (27.0-32.0); Mean Corpuscular Volume 83.9 fL (81-99); Mean Platelet Vol. 9.5 fl (6.2-12.0); Monocyte# 0.62 X10^3/uL; Monocyte% 7.3 % (0-10); NRBC Flagged by Analyzer 0 % (0-5); Neutrophil # 5.49 X10^3/uL (2.7-7.7); Neutrophil % 64.3 % (47-70); Platelet Count 344 K/mm3 (150-450); RBC Distribution Width CV 15.3 % (11.6-14.6); RBC Distribution Width SD 46.8 fl (35.1-43.9); Red Blood Count 4.47 M/mm3 (4.2-5.4); White Blood Count 8.5 K/mm3 (4.4-11.0)
[2021-01-27 12:13] LABS: Hemoglobin A1c 5.2 % (3.8-5.6)
[2021-01-27 12:16] LABS: Vitamin B12 1645 pg/mL (211-911)
[2021-01-27 12:28] LABS: ALB/GLOB Ratio 0.8 RATIO (0.9-2.4); AST(SGOT) 22 U/L (15-37); Alanine Aminotransfer ALT/SGPT 48 U/L (13-56); Albumin, Serum 3.2 g/dL (3.2-5.0); Alkaline Phosphatase 57 U/L (45-117); Anion Gap 6 (5-15); BUN 13 mg/dL (7-18); BUN/Creat Ratio 23.5 RATIO (10-20); Calcium,Total 8.7 mg/dL (8.5-10.1); Chloride 108 mmol/L (98-107); Creatinine, Serum 0.55 mg/dL (0.55-1.02); EST Glomerular Filtration Rate 143 mL/min (>60); Est Glom Filt Rate - Afr Amer 173 mL/min (>60); Ferritin 83 ng/mL (8-252); Glucose 90 mg/dL (74-106); Iron 44 ug/dL (50-170); Iron Binding Capacity,Total 387 ug/dL (250-450); PERCENT IRON SATURATION 11.4 % (15.0-55.0); Potassium 4.2 mmol/L (3.5-5.1); Protein, Total 7.2 g/dL (6.4-8.2); Sodium Level 139 mmol/L (136-145)
== END ==
PROVIDERS: Referring Provider Nurse Practitioner Adult Health; Visit Provider Nurse Practitioner Adult Health
DX: R42 Dizziness and giddiness (principal); R11.2 Nausea with vomiting, unspecified; Z13.1 Encounter for screening for diabetes mellitus; Z51.81 Encounter for therapeutic drug level monitoring
CPT/HCPCS: 36415; 80053; 80178; 82607; 82728; 82746; 83036; 83540; 83550; 85025

== ENCOUNTER → 2021-06-27 | Outpatient (CLI) | payer MEDICAID, SELFPAY ==
[2021-06-27 09:02] LABS: Hematocrit 38.6 % (37-47); Hemoglobin 12.7 g/dL (12.0-15.0); Mean Corp Hgb Conc 32.9 g/dL (32-36); Mean Corpuscular Hgb 28.7 pg (27.0-32.0); Mean Corpuscular Volume 87.3 fL (81-99); Mean Platelet Vol. 9.4 fl (6.2-12.0); Platelet Count 273 K/mm3 (150-450); Red Blood Count 4.42 M/mm3 (4.2-5.4); White Blood Count 6.6 K/mm3 (4.4-11.0)
[2021-06-27 09:37] LABS: Anion Gap 5 (5-15); BUN 10 mg/dL (7-18); BUN/Creat Ratio 18.4 RATIO (10-20); Calcium,Total 8.7 mg/dL (8.5-10.1); Chloride 112 mmol/L (98-107); Creatinine, Serum 0.54 mg/dL (0.55-1.02); EST Glomerular Filtration Rate 145 mL/min (>60); Est Glom Filt Rate - Afr Amer 176 mL/min (>60); Glucose 100 mg/dL (74-106); Iron 50 ug/dL (50-170); Iron Binding Capacity,Total 374 ug/dL (250-450); Potassium 4.1 mmol/L (3.5-5.1); Sodium Level 140 mmol/L (136-145)
== END | disposition home or self-care (01) ==
LOC: LAB 08:45
DX: I10 Essential (primary) hypertension (principal); E61.1 Iron deficiency
CPT/HCPCS: 36415; 80048; 83540; 83550; 85027

== ENCOUNTER 2021-08-16 19:43 | Emergency (ER) | payer MEDICAID, SELFPAY ==
[2021-08-16 19:45] VITALS: BP 178/86; PULSE 98; RESP 14; TEMP 36.6; O2SAT 95; BMI 44.6
--- NOTE | 2021-08-16 20:20 | RAD_ITS ---
STUDY: X-RAY - LEFT FOOT CLINICAL: Female, 25 years old. Injury TECHNIQUE: 3 view(s) of the foot. COMPARISON: None. FINDINGS: Normal talus, calcaneus, and tarsal bones. Normal visualized subtalar, talonavicular, calcaneocuboid, tarsal and tarsometatarsal articulations. Normal metatarsi. Normal metatarsophalangeal joint of the great toe. Normal tibial and fibular sesamoid bones. Normal interphalangeal joint of the great toe. Normal phalanges of the great toe. Normal second through fifth metatarsophalangeal joints. Normal interphalangeal joints and phalanges of the lesser toes. The soft tissue structures are unremarkable. RAD/Foot min 3 Views IMPRESSION: Normal x-ray examination of the foot. Electronically Signed: Dante Espitia MD at 8:22 EDT ,
--- NOTE | 2021-08-16 20:20 | RAD_ITS ---
STUDY: X-RAY - LEFT ANKLE REASON FOR EXAM: Female, 25 years old. Pain following injury. TECHNIQUE: 3 view(s) of the ankle. COMPARISON: None. FINDINGS: Normal visualized distal tibia and fibula. Normal medial and lateral malleoli. Normal tibiotalar articulation and ankle mortise. Normal visualized talus and calcaneus. The visualized subtalar, talonavicular, calcaneocuboid and tarsal articulations are normal. The soft tissue structures are unremarkable. RAD/Ankle min 3 Views IMPRESSION: Normal x-ray examination of the ankle. Electronically Signed: Dante Espitia MD at 8:22 EDT ,
--- NOTE | 2021-08-16 20:20 | RAD_ITS ---
STUDY: X-RAY - LEFT KNEE REASON FOR EXAM: Female, 25 years old. Pain following injury. TECHNIQUE: 2 view(s) of the knee. COMPARISON: Comparison is made with prior study dated 08/03/2016. FINDINGS: Normal visualized distal femur. Normal visualized proximal tibia and fibula. Normal proximal tibiofibular articulation. Normal medial femorotibial compartment. Normal lateral femorotibial compartment. Normal patellofemoral articulation. Stable screw fixation of the patella. The soft tissue structures are unremarkable. RAD/Knee 1 or 2 Views IMPRESSION: Stable screw fixation of the patella. No acute abnormality is seen. Electronically Signed: Dante Espitia MD at 8:21 EDT ,
--- NOTE | 2021-08-16 21:45 | EDS_ITS ---
HPI History of Present Illness Chief Complaint: Lower Extremity Injury Informant: patient Narrative Narrative: Patient here with mother for left ankle foot injury occurring 2 days ago while walking down steps. No falls or head injuries. Inversion injury. Able to ambulate, using Tylenol Motrin intermittently last dose 30 minutes prior to arrival. Also reports knee pain had a patellar fracture years ago. Denies trauma to the knee. No paresthesias. PFSH PFS Medical History Autism Bipolar 1 disorder Depression with anxiety Fatty liver IBS (irritable bowel syndrome) Migraines PCOS (polycystic ovarian syndrome) Home Medications aripiprazole 15 mg tablet (Abilify) 7.5 mg PO DAILY 04/05/17 [History Last Taken Unknown] lithium carbonate 300 mg capsule 300 mg PO BID 04/05/17 [History Last Taken Unknown] omeprazole 40 mg capsule,delayed release 40 mg PO DAILY 04/05/17 [History Last Taken Unknown] divalproex 500 mg tablet,extended release 24 hr 500 mg PO DAILY 12/05/20 [History Last Taken Unknown] losartan 50 mg tablet 50 mg PO DAILY 12/09/20 [History Last Taken Unknown] naproxen 500 mg tablet 500 mg PO .COMPLEX #30 tabs 01/03/21 [Rx Last Taken Unknown] promethazine 25 mg tablet 25 mg PO TID PRN nausea and vomiting #14 tabs 01/18/21 [Rx Last Taken Unknown] spironolactone 50 mg tablet 50 mg PO DAILY #30 tabs 08/08/21 [Rx Last Taken Unknown] Allergy/AdvReac Type Severity Reaction Status Date / Time pollen extracts Allergy Hives Verified 08/16/21 19:45 escitalopram [From Lexapro] AdvReac Other Verified 08/16/21 19:45 lactase [From Dairy Aid] AdvReac Upset Verified 08/16/21 19:45 Stomach ondansetron AdvReac Anaphylaxis Verified 08/16/21 19:45 [From Zofran (as hydrochloride)] Family History Mother Uterine cancer Other Asthma Depression Diabetes GERD (gastroesophageal reflux disease) Heart disease Hyperlipidemia Hypertension Surgical History H/O knee surgery H/O spinal fusion History of tonsillectomy and adenoidectomy Social History household members: none housing: apartment current occupational status: unemployed history of recent travel: No Smoking Status: Never smoker alcohol intake: current alcohol intake frequency: holidays/special occasions only substance use type: does not use what type of physical activity do you participate in: walking frequency: daily seatbelt use: always do you feel safe at home: Yes additional social history: single ROS ROS ED Constitutional Constitutional ED: Denies chills, fever(s) or sweats Eyes Eyes: Denies change in vision ENT ENT ED: Denies dysphagia or sore throat Cardiovascular Cardiovascular: Denies chest pain, leg edema, palpitations or racing heartbeat Respiratory/Chest Respiratory/Chest: Denies cough, dyspnea or dyspnea on exertion Gastrointestinal Gastrointestinal: Denies abdominal pain, diarrhea, nausea or vomiting Genitourinary Genitourinary ED: Denies dysuria, hematuria or urinary frequency Musculoskeletal Musculoskeletal: Reports extremity pain and other Details: Left knee, ankle, foot pain ; Denies back pain or neck pain Integumentary Denies rash or wounds Neurologic Neurologic: Denies headache(s), paresthesias or weakness EXAM Physical Exam Const Vital Signs: 08/16/21 19:45 Temperature 98 F Temperature Source Temporal Pulse Rate 98 Respiratory Rate 14 Blood Pressure 178/86 H Blood Pressure Mean 116 Pulse Ox 95 Oxygen Delivery Method Room Air Positive well nourished and well developed General Appearance ED: well developed and NAD HEENT Reports moist mucous membranes normocephalic and atraumatic Eyes PERRL, EOMs intact bilaterally and conjunctivae normal General Eye ED: Yes normal appearance of both eyes Neck no lymphadenopathy and supple General: Negative for tenderness Chest Wall Chest: Negative for tenderness Resp normal respiratory effort and normal air movement Effort and Inspection: symmetric chest movement; Negative for respiratory distress Cardio regular rate, regular rhythm and no murmurs Peripheral Pulses: pulses 2+ throughout GI normal to inspection, nondistended, normoactive bowel sounds and non-tender Palpation: Negative for guarding or rebound tenderness present Back/Spine no CVA tenderness and no thoracic nor lumbar tenderness Extremity Extremity Narrative: Left lower extremity: Negative logroll. Knee extensor intact. No patellar tenderness there is a healed vertical incision. No proximal fibular head tenderness. There is mild lateral malleolar tenderness. There is midfoot proximal fifth base tenderness. Skin intact. Neuro vas intact. General Extremety ED: Negative for edema or tenderness General Extremity: Negative for edema Neuro oriented x3 and no sensory deficits noted Sensorium / Orientation: awake and alert Skin no rashes or lesions noted and no wounds MDM MDM MDM Narrative Medical decision making narrative: Patient took medicines prior to arrival. X-ray left knee 2 views, left ankle 3 views, left foot 3 views reviewed by myself shows no signs of fracture or dislo cation. Knee views had 2 hardware screws intact. Extraosseous bone noted posterior knee. Aircast provided she will continue Tylenol Motrin, she states she does have crutches at home. She will follow-up with her PCP. All questions were answered. Discharge Plan Triage Chief Complaint: Lower Extremity Injury ED Provider: Jeevan Marie Dx/Rx/DC Orders Clinical Impression: Left ankle sprain, Sprain of left foot, Knee pain, left Instructions: Knee Pain, ED Foot Sprain, ED Ankle Sprain (Adult), ED Air Stirrup Ank Brace Inf Td Prescriptions: No Action losartan 50 mg tablet 50 mg PO DAILY naproxen 500 mg tablet 500 mg PO .COMPLEX Qty: 30 2RF Rx Instructions: 500 mg PO Q12 hr first 3 days of menses; administer with food or milk spironolactone 50 mg tablet 50 mg PO DAILY Qty: 30 1RF omeprazole 40 MG capsule,delayed release(DR/EC) 40 mg PO DAILY lithium carbonate 300 MG capsule 300 mg PO BID aripiprazole [Abilify] 15 MG tablet 7.5 mg PO DAILY divalproex 500 mg tablet extended release 24 hr 500 mg PO DAILY promethazine 25 mg tablet 25 mg PO TID PRN (Reason: nausea and vomiting) Qty: 14 0RF Primary Care Provider: [facility] Frances Trotter Referrals: [facility] Frances Trotter [Primary Care Provider] - 1 Week if not improving Disposition Disposition: Home, Self Care
== END 2021-08-16 22:07 | disposition home or self-care (01) ==
PROVIDERS: Emergency Provider Emergency Medicine; Visit Provider Emergency Medicine
DX: S93.402A Sprain of unspecified ligament of left ankle, initial encounter (principal); F31.9 Bipolar disorder, unspecified; F84.0 Autistic disorder; F41.8 Other specified anxiety disorders; K76.0 Fatty (change of) liver, not elsewhere classified; K58.9 Irritable bowel syndrome, unspecified; G43.909 Migraine, unspecified, not intractable, without status migrainosus; E28.2 Polycystic ovarian syndrome; Z79.899 Other long term (current) drug therapy; X50.1XXA Overexertion from prolonged static or awkward postures, initial encounter; Y93.01 Activity, walking, marching and hiking; M25.562 Pain in left knee; S93.602A Unspecified sprain of left foot, initial encounter
CPT/HCPCS: 73560; 73610; 73630; 99283

== ENCOUNTER → 2021-08-24 | Outpatient (CLI) | payer MEDICAID, SELFPAY ==
[2021-08-24 09:19] LABS: Albumin, Serum 3.4 g/dL (3.2-5.0); BUN 11 mg/dL (7-18); BUN/Creat Ratio 17.5 RATIO (10-20); Calcium,Total 9.2 mg/dL (8.5-10.1); Chloride 108 mmol/L (98-107); Creatinine, Serum 0.63 mg/dL (0.55-1.02); EST Glomerular Filtration Rate 123 mL/min (>60); Est Glom Filt Rate - Afr Amer 148 mL/min (>60); Glucose 112 mg/dL (74-106); Phosphorus 3.8 mg/dL (2.5-4.9); Potassium 4.2 mmol/L (3.5-5.1); Sodium Level 139 mmol/L (136-145); Thyroid Stim Hormone (TSH) 2.96 uIU/mL (0.358-3.74)
== END | disposition home or self-care (01) ==
LOC: LAB 08:10
PROVIDERS: Visit Provider Registered Nurse
DX: F31.81 Bipolar II disorder (principal); Z79.899 Other long term (current) drug therapy
CPT/HCPCS: 36415; 80069; 80178; 84443

== ENCOUNTER 2021-08-29 18:18 | Emergency (ER) | payer MEDICAID, SELFPAY ==
[2021-08-29 18:19] VITALS: BP 137/86; PULSE 100; RESP 16; TEMP 36.8; O2SAT 100; BMI 44.9
--- NOTE | 2021-08-29 20:13 | EX.ED.VIS.HA ---
HPI History of Present Illness Chief Complaint: Headache Narrative Narrative: 25-year-old female with history of migraine presenting with headache. She states she is tried Maxalt and ibuprofen. She is tried Tylenol. She states nothing is working. She complains of light sensitivity and sound sensitivity. She denies fever, chills, neck pain. Denies any trauma. Headache is not acute in onset. She states it feels typical of her migraines. She has a follow-up with her neurologist tomorrow. [facility] Medical History Autism Bipolar 1 disorder Depression with anxiety Fatty liver IBS (irritable bowel syndrome) Migraines PCOS (polycystic ovarian syndrome) Home Medications aripiprazole 15 mg tablet (Abilify) 7.5 mg PO DAILY 04/05/17 [History Last Taken Unknown] lithium carbonate 300 mg capsule 300 mg PO BID 04/05/17 [History Last Taken Unknown] omeprazole 40 mg capsule,delayed release 40 mg PO DAILY 04/05/17 [History Last Taken Unknown] divalproex 500 mg tablet,extended release 24 hr 500 mg PO DAILY 12/05/20 [History Last Taken Unknown] losartan 50 mg tablet 50 mg PO DAILY 12/09/20 [History Last Taken Unknown] naproxen 500 mg tablet 500 mg PO .COMPLEX #30 tabs 01/03/21 [Rx Last Taken Unknown] promethazine 25 mg tablet 25 mg PO TID PRN nausea and vomiting #14 tabs 01/18/21 [Rx Last Taken Unknown] spironolactone 50 mg tablet 50 mg PO DAILY #30 tabs 08/08/21 [Rx Last Taken Unknown] Allergy/AdvReac Type Severity Reaction Status Date / Time pollen extracts Allergy Hives Verified 08/16/21 19:45 escitalopram [From Lexapro] AdvReac Other Verified 08/16/21 19:45 lactase [From Dairy Aid] AdvReac Upset Verified 08/16/21 19:45 Stomach ondansetron AdvReac Anaphylaxis Verified 08/16/21 19:45 [From Zofran (as hydrochloride)] Family History Mother Uterine cancer Other Asthma Depression Diabetes GERD (gastroesophageal reflux disease) Heart disease Hyperlipidemia Hypertension Surgical History H/O knee surgery H/O spinal fusion History of tonsillectomy and adenoidectomy Social History household members: none housing: apartment current occupational status: unemployed history of recent travel: No Smoking Status: Never smoker alcohol intake: current alcohol intake frequency: holidays/special occasions only substance use type: does not use what type of physical activity do you participate in: walking frequency: daily seatbelt use: always do you feel safe at home: Yes additional social history: single ROS ROS ED Constitutional Constitutional ED: Denies chills or fever(s) Eyes Eyes: Reports other Details: Light sensitivity ; Denies change in vision or diplopia ENT ENT ED: Reports other Details: Sound sensitivity ; Denies rhinorrhea Cardiovascular Cardiovascular: Denies chest pain or palpitations Respiratory/Chest Respiratory/Chest: Denies cough or dyspnea Gastrointestinal Gastrointestinal: Reports nausea and vomiting; Denies abdominal pain or constipation Genitourinary Genitourinary ED: Denies dysuria or hematuria Musculoskeletal Musculoskeletal: Denies arthralgias or back pain Integumentary Denies abscess or Abrasions Neurologic Neurologic: Reports headache(s); Denies paresthesias or weakness Psychiatric Psychiatric: Denies anxiety or depression EXAM Physical Exam Const Vital Signs: 08/29/21 18:19 08/29/21 22:32 Temperature 98.3 F Temperature Source Temporal Pulse Rate 100 102 H Respiratory Rate 16 15 Blood Pressure 137/86 H 135/74 H Blood Pressure Mean 103 Pulse Ox 100 99 Oxygen Delivery Method Room Air Positive well nourished General Appearance ED: NAD; Negative for pallor HEENT Reports normocephalic and TM's clear Tympanic Membrane ED: Yes TM's clear Eyes PERRL and EOMs intact bilaterally Neck no lymphadenopathy Resp normal respiratory effort and clear to auscultation bilaterally Cardio regular rate and regular rhythm GI Auscultation: normoactive bowel sounds and hyperactive bowel sounds Extremity normal to inspection Neuro oriented x3, CN's II-XII intact bilaterally and no sensory deficits noted Speech: speech normal Motor Exam: strength 5/5 throughout Psych mental status grossly normal Skin General Skin Exam: Negative for jaundice or pallor MDM MDM MDM Narrative Medical decision making narrative: Patient presented with headache. Is consistent with previous migraine. Maxalt, ibuprofen, Tylenol not helping. Patient stated that she had not had any imaging of her head however looking in the computer system she had several CT brain's and 2 MRIs of her brain. I do not believe she needs imaging currently with a normal headache for her. If patient treated with Reglan, Benadryl, Toradol. On reevaluation she is feeling improved and wants to go home. I counseled her to make her follow-up appointment with her neurologist tomorrow. She can return precautions. Impression: 1. Migraine Lab Data Attestation: I reviewed the patient's lab results. Discharge Plan Triage Chief Complaint: Headache ED Provider: David Etienne Dx/Rx/DC Orders Instructions: ED, Migraine (Classical) Prescriptions: No Action losartan 50 mg tablet 50 mg PO DAILY naproxen 500 mg tablet 500 mg PO .COMPLEX Qty: 30 2RF Rx Instructions: 500 mg PO Q12 hr first 3 days of menses; administer with food or milk spironolactone 50 mg tablet 50 mg PO DAILY Qty: 30 1RF omeprazole 40 MG capsule,delayed release(DR/EC) 40 mg PO DAILY lithium carbonate 300 MG capsule 300 mg PO BID aripiprazole [Abilify] 15 MG tablet 7.5 mg PO DAILY divalproex 500 mg tablet extended release 24 hr 500 mg PO DAILY promethazine 25 mg tablet 25 mg PO TID PRN (Reason: nausea and vomiting) Qty: 14 0RF Primary Care Provider: [facility] Frances Trotter Referrals: [facility] Frances Trotter [Primary Care Provider] - Disposition Disposition: Home, Self Care Discharge Date/Time: 08/29/21 22:33
[2021-08-29] MEDS: DiphenhydrAMINE 50 MG/ML Syringe 25 MG IV (20:16)
[2021-08-29] MEDS: Metoclopramide 10 MG/2 ML Vial IV (20:16)
[2021-08-29] MEDS: 0.9% Normal Saline 1,000 ML 999 ML IV (20:16)
[2021-08-29] MEDS: Ketorolac 15 MG/ML Vial IV (20:17)
[2021-08-29 22:32] VITALS: BP 135/74; PULSE 102; RESP 15; O2SAT 99
== END 2021-08-29 22:33 | disposition home or self-care (01) ==
PROVIDERS: Emergency Provider Student in an Organized Health Care Education/Training Program; Visit Provider Student in an Organized Health Care Education/Training Program
DX: G43.909 Migraine, unspecified, not intractable, without status migrainosus (principal); F31.9 Bipolar disorder, unspecified; K76.0 Fatty (change of) liver, not elsewhere classified; K58.9 Irritable bowel syndrome, unspecified; E28.2 Polycystic ovarian syndrome; F84.0 Autistic disorder; F41.8 Other specified anxiety disorders; Z79.899 Other long term (current) drug therapy
CPT/HCPCS: 96361; 96374; 96375; 99282; J7030; A4216

== ENCOUNTER → 2021-08-31 | Outpatient (CLI) | payer MEDICAID, SELFPAY ==
[2021-08-31 17:15] LABS: ALB/GLOB Ratio 0.9 RATIO (0.9-2.4); AST(SGOT) 98 U/L (15-37); Alanine Aminotransfer ALT/SGPT 197 U/L (13-56); Albumin, Serum 3.6 g/dL (3.2-5.0); Alkaline Phosphatase 59 U/L (45-117); Anion Gap 6 (5-15); BUN 17 mg/dL (7-18); BUN/Creat Ratio 22.3 RATIO (10-20); Calcium,Total 9.1 mg/dL (8.5-10.1); Chloride 109 mmol/L (98-107); Cholesterol 212 mg/dL (200); Creatinine, Serum 0.76 mg/dL (0.55-1.02); EST Glomerular Filtration Rate 98 mL/min (>60); Est Glom Filt Rate - Afr Amer 119 mL/min (>60); Globulin 3.8 g/dL (2.2-4.2); Glucose 84 mg/dL (74-106); High Density Lipoprotein 30 mg/dL; Potassium 4.2 mmol/L (3.5-5.1); Protein, Total 7.4 g/dL (6.4-8.2); Sodium Level 140 mmol/L (136-145); Triglycerides 219 mg/dL; Very Low Density Lipoprotein 44 mg/dL (5-40)
== END | disposition home or self-care (01) ==
LOC: LAB 14:49
PROVIDERS: Visit Provider Nurse Practitioner Adult Health
DX: I10 Essential (primary) hypertension (principal)
CPT/HCPCS: 36415; 80053; 80061

== ENCOUNTER 2021-09-03 10:51 | Emergency (ER) | payer MEDICAID, SELFPAY ==
[2021-09-03 10:52] VITALS: BP 116/80; PULSE 73; RESP 16; TEMP 36.6; O2SAT 97; BMI 42.3
--- NOTE | 2021-09-03 11:41 | EDS_ITS ---
HPI HPI - GI History of Present Illness Chief Complaint: Nausea/Vomiting/Diarrhea Narrative Narrative: 25-year-old female presenting with nausea, vomiting, diarrhea since Sunday. She reports that she was able to hold down fluids this whole time but stopped being able to hold down fluids last evening. She has not had any food since Sunday. She has chills but denies fevers. She states she does not have a thermometer. She has some crampy diffuse abdominal pain. She denies dysuria or hematuria but does state that she has decreased urine output. No vaginal complaints. [facility] Medical History Autism Bipolar 1 disorder Depression with anxiety Fatty liver IBS (irritable bowel syndrome) Migraines PCOS (polycystic ovarian syndrome) Home Medications aripiprazole 15 mg tablet (Abilify) 7.5 mg PO DAILY 04/05/17 [History Last Taken Unknown] lithium carbonate 300 mg capsule 300 mg PO BID 04/05/17 [History Last Taken Unknown] omeprazole 40 mg capsule,delayed release 40 mg PO DAILY 04/05/17 [History Last Taken Unknown] divalproex 500 mg tablet,extended release 24 hr 500 mg PO DAILY 12/05/20 [History Last Taken Unknown] losartan 50 mg tablet 50 mg PO DAILY 12/09/20 [History Last Taken Unknown] naproxen 500 mg tablet 500 mg PO .COMPLEX #30 tabs 01/03/21 [Rx Last Taken Unknown] promethazine 25 mg tablet 25 mg PO TID PRN nausea and vomiting #14 tabs 01/18/21 [Rx Last Taken Unknown] spironolactone 50 mg tablet 50 mg PO DAILY #30 tabs 08/08/21 [Rx Last Taken Unknown] metoclopramide HCl 10 mg tablet (Reglan) 10 mg PO Q8H PRN PRN nausea and vomiting #10 tabs 09/03/21 [Rx Last Taken Unknown] Allergy/AdvReac Type Severity Reaction Status Date / Time pollen extracts Allergy Hives Verified 09/03/21 10:55 escitalopram [From Lexapro] AdvReac Other Verified 09/03/21 10:55 lactase [From Dairy Aid] AdvReac Upset Verified 09/03/21 10:55 Stomach ondansetron AdvReac Anaphylaxis Verified 09/03/21 10:55 [From Zofran (as hydrochloride)] Family History Mother Uterine cancer Other Asthma Depression Diabetes GERD (gastroesophageal reflux disease) Heart disease Hyperlipidemia Hypertension Surgical History H/O knee surgery H/O spinal fusion History of tonsillectomy and adenoidectomy Social History household members: none housing: apartment current occupational status: unemployed history of recent travel: No Smoking Status: Never smoker alcohol intake: current alcohol intake frequency: holidays/special occasions only substance use type: does not use what type of physical activity do you participate in: walking frequency: daily seatbelt use: always do you feel safe at home: Yes additional social history: single ROS ROS ED Constitutional Constitutional ED: Reports chills ENT ENT ED: Denies rhinorrhea or sore throat Cardiovascular Cardiovascular: Denies chest pain or palpitations Respiratory/Chest Respiratory/Chest: Denies cough or dyspnea Gastrointestinal Gastrointestinal: Reports abdominal pain, diarrhea, nausea and vomiting Genitourinary Genitourinary ED: Denies dysuria or hematuria Musculoskeletal Musculoskeletal: Denies arthralgias or myalgias Integumentary Denies abscess Neurologic Neurologic: Reports headache(s); Denies paresthesias or weakness Psychiatric Psychiatric: Denies anxiety or depression EXAM Physical Exam Const Vital Signs: 09/03/21 10:52 Temperature 97.9 F Temperature Source Temporal Pulse Rate 73 Respiratory Rate 16 Blood Pressure 116/80 Blood Pressure Mean 92 Pulse Ox 97 Oxygen Delivery Method Room Air Positive well nourished General Appearance ED: NAD; Negative for pallor HEENT Reports moist mucous membranes normocephalic and atraumatic Eyes PERRL and EOMs intact bilaterally General Eye ED: Negative for pale conjunctiva or scleral icterus Resp normal respiratory effort and clear to auscultation bilaterally Auscultation: Negative for rales, rhonchi or wheezes Cardio regular rate and regular rhythm GI Auscultation: hyperactive bowel sounds Palpation: Negative for guarding or rigid Back/Spine no CVA tenderness Neuro CN's II-XII intact bilaterally Sensorium / Orientation: alert Motor Exam: strength 5/5 throughout Psych mental status grossly normal and thought process normal Skin General Skin Exam: Negative for jaundice or pallor MDM MDM MDM Narrative Medical decision making narrative: Patient presented with nausea, vomiting, diarrhea. She given Reglan, IV fluids. CBC shows no leukocytosis. Hemoglobin macular stable. Platelets are normal. Creatinine slightly increased to 1.12. Electrolytes are normal. LFTs within normal limits with exception of the ALT. This is 149. Serum test negative. Urinalysis negative for infection. On reevaluation she is resting comfortably. She states she is improved dramatically. Repeat abdominal exam is benign. I do not think she needs a CT of the abdomen pelvis. Patient given Reglan for home at her request. He is counseled drink plenty of fluids and advance diet as tolerated. Impression: 1. Nausea/vomiting 2. Diarrhea 3. Dehydration Lab Data Attestation: I reviewed the patient's lab results. Labs: Laboratory Results - last 24 hr 09/03/21 09/03/21 09/03/21 12:01 12:01 12:01 WBC 6.8 RBC 4.39 Hgb 12.7 Hct 39.2 MCV 89.3 MCH 28.9 MCHC 32.4 RDW Std Deviation 44.6 H RDW Coeff of Delmy 13.5 Plt Count 300 MPV 9.4 Immature Gran % (Auto) 0.600 Neut % (Auto) 63.1 Lymph % (Auto) 24.0 Guthrie % (Auto) 10.8 H Eos % (Auto) 0.9 Baso % (Auto) 0.6 Absolute Neuts (auto) 4.3 Absolute Lymphs (auto) 1.63 Nucleated RBC % 0 Sodium 138 Potassium 4.3 Chloride 110 H Carbon Dioxide 25.0 Anion Gap 3 L BUN 16 Creatinine 1.12 H Estim Creat Clear Calc 75.32 Est GFR (MDRD) Af Amer 76 Est GFR (MDRD) Non-Af 63 BUN/Creatinine Ratio 14.3 Glucose 104 Calcium 9.1 Total Bilirubin 0.60 AST 55 H ALT 149 H Alkaline Phosphatase 56 Total Protein 7.2 Albumin 3.5 Globulin 3.7 Albumin/Globulin Ratio 0.9 Lipase 144 Serum , Qual NEGATIVE Urine Color Urine Clarity Urine pH Ur Specific Trenary Urine Protein Urine Glucose (UA) Urine Ketones Urine Occult Blood Urine Nitrite Urine Bilirubin Urine Urobilinogen Ur Leukocyte Esterase Urine RBC Urine WBC Ur Squamous Epith Cells Urine Bacteria Urine Mucus 09/03/21 12:20 WBC RBC Hgb Hct MCV MCH MCHC RDW Std Deviation RDW Coeff of Delmy Plt Count MPV Immature Gran % (Auto) Neut % (Auto) Lymph % (Auto) Guthrie % (Auto) Eos % (Auto) Baso % (Auto) Absolute Neuts (auto) Absolute Lymphs (auto) Nucleated RBC % Sodium Potassium Chloride Carbon Dioxide Anion Gap BUN Creatinine Estim Creat Clear Calc Est GFR (MDRD) Af Amer Est GFR (MDRD) Non-Af BUN/Creatinine Ratio Glucose Calcium Total Bilirubin AST ALT Alkaline Phosphatase Total Protein Albumin Globulin Albumin/Globulin Ratio Lipase Serum , Qual Urine Color Yellow Urine Clarity Cloudy Urine pH 5.0 Ur Specific Trenary 1.020 Urine Protein 30 H Urine Glucose (UA) Normal Urine Ketones Negative Urine Occult Blood Negative Urine Nitrite Negative Urine Bilirubin Negative Urine Urobilinogen Normal Ur Leukocyte Esterase 100 H Urine RBC 0 SEEN Urine WBC 0-5 SEEN Ur Squamous Epith Cells 5-10 SEEN Urine Bacteria 1+ Urine Mucus 0 SEEN Discharge Plan Triage Chief Complaint: Nausea/Vomiting/Diarrhea ED Provider: David Etienne Dx/Rx/DC Orders Instructions: ED Dehydration (Adult), ED Vomiting and Diarrhea ... Prescriptions: New metoclopramide HCl [Reglan] 10 mg tablet 10 mg PO Q8H PRN PRN (Reason: nausea and vomiting) Qty: 10 0RF No Action losartan 50 mg tablet 50 mg PO DAILY naproxen 500 mg tablet 500 mg PO .COMPLEX Qty: 30 2RF Rx Instructions: 500 mg PO Q12 hr first 3 days of menses; administer with food or milk spironolactone 50 mg tablet 50 mg PO DAILY Qty: 30 1RF omeprazole 40 MG capsule,delayed release(DR/EC) 40 mg PO DAILY lithium carbonate 300 MG capsule 300 mg PO BID aripiprazole [Abilify] 15 MG tablet 7.5 mg PO DAILY divalproex 500 mg tablet extended release 24 hr 500 mg PO DAILY promethazine 25 mg tablet 25 mg PO TID PRN (Reason: nausea and vomiting) Qty: 14 0RF Primary Care Provider: [facility] Frances Trotter Referrals: [facility] Frances Trotter [Primary Care Provider] - Disposition Disposition: Home, Self Care Discharge Date/Time: 09/03/21 13:45
[2021-09-03] MEDS: 0.9% Normal Saline 1,000 ML 1000 ML IV (11:59)
[2021-09-03] MEDS: Metoclopramide 10 MG/2 ML Vial IV (12:00)
[2021-09-03 12:08] LABS: Absolute Lymphocyte Count 1.63 X10^3/uL (0.83-4.51); Absolute Neutrophil Count 4.3 X10^3/uL (2.0-7.7); Basophil# 0.04 X10^3/uL; Basophil% 0.6 % (0-1); Eosinophil# 0.06 X10^3/uL; Eosinophils% 0.9 % (0-5); Hematocrit 39.2 % (37-47); Hemoglobin 12.7 g/dL (12.0-15.0); Lymphocyte # 1.63 X10^3/ul (0.83-4.51); Mean Corp Hgb Conc 32.4 g/dL (32-36); Mean Corpuscular Hgb 28.9 pg (27.0-32.0); Mean Corpuscular Volume 89.3 fL (81-99); Mean Platelet Vol. 9.4 fl (6.2-12.0); Monocyte# 0.73 X10^3/uL; Monocyte% 10.8 % (0-10); NRBC Flagged by Analyzer 0 % (0-5); Neutrophil # 4.28 X10^3/uL (2.7-7.7); Neutrophil % 63.1 % (47-70); Platelet Count 300 K/mm3 (150-450); RBC Distribution Width CV 13.5 % (11.6-14.6); RBC Distribution Width SD 44.6 fl (35.1-43.9); Red Blood Count 4.39 M/mm3 (4.2-5.4); White Blood Count 6.8 K/mm3 (4.4-11.0)
[2021-09-03 12:22] LABS: Internal QC Validated? YES +Cl - CLEAR BKGD; Pregnancy, Serum, hCG Quali. NEGATIVE Negative
[2021-09-03 12:23] LABS: Mucous, Urine 0 SEEN /hpf (<or=2+); Red Blood Cells-Urine 0 SEEN /hpf (0-5)
[2021-09-03 12:24] LABS: Color, Urine Yellow (Yellow); Glucose, Dipstick Normal (Normal); Ketone-Dipstick Negative (Negative); Leukocyte Esterase-Dipstick 100 /ul (Negative); Nitrite-Dipstick Negative (Negative); Occult Blood-Urine Negative /ul (Negative); Protein-Dipstick 30 mg/dl (Negative); Urine Bilirubin Dipstick Negative (Negative); Urine Clarity Cloudy (Clear); Urine Urobilinogen Normal (Normal)
[2021-09-03] MEDS: Famotidine 200 MG/20 ML MDV 20 MG in 0.9% Normal Saline (Pres. free 8 ML 300 MG IV (12:24)
[2021-09-03 12:27] LABS: ALB/GLOB Ratio 0.9 RATIO (0.9-2.4); AST(SGOT) 55 U/L (15-37); Alanine Aminotransfer ALT/SGPT 149 U/L (13-56); Albumin, Serum 3.5 g/dL (3.2-5.0); Alkaline Phosphatase 56 U/L (45-117); Anion Gap 3 (5-15); BUN 16 mg/dL (7-18); BUN/Creat Ratio 14.3 RATIO (10-20); Calcium,Total 9.1 mg/dL (8.5-10.1); Chloride 110 mmol/L (98-107); Creatinine, Serum 1.12 mg/dL (0.55-1.02); EST Glomerular Filtration Rate 63 mL/min (>60); Est Glom Filt Rate - Afr Amer 76 mL/min (>60); Estimated Creatinine Clearance 75.32 ml/min; Globulin 3.7 g/dL (2.2-4.2); Glucose 104 mg/dL (74-106); Lipase 144 U/L (73-393); Potassium 4.3 mmol/L (3.5-5.1); Protein, Total 7.2 g/dL (6.4-8.2); Sodium Level 138 mmol/L (136-145)
[2021-09-03 12:30] LABS: Bacteria 1+ /hpf (None Seen); Squamous Epithelial Cells - UA 5-10 SEEN /hpf (5-10); White Blood Cells 0-5 SEEN /hpf (0-5)
== END 2021-09-03 13:45 | disposition home or self-care (01) ==
PROVIDERS: Emergency Provider Student in an Organized Health Care Education/Training Program; Visit Provider Student in an Organized Health Care Education/Training Program
DX: R11.2 Nausea with vomiting, unspecified (principal); F31.9 Bipolar disorder, unspecified; R10.84 Generalized abdominal pain; R68.83 Chills (without fever); R19.7 Diarrhea, unspecified; E86.0 Dehydration; F84.0 Autistic disorder; F41.8 Other specified anxiety disorders; K76.0 Fatty (change of) liver, not elsewhere classified; K58.9 Irritable bowel syndrome, unspecified; E28.2 Polycystic ovarian syndrome; G43.909 Migraine, unspecified, not intractable, without status migrainosus; Z79.899 Other long term (current) drug therapy
CPT/HCPCS: 80053; 81001; 83690; 84703; 85025; 96361; 96374; 96375; 99282; J7030; A4216; J3490

== ENCOUNTER 2021-09-10 02:41 | Emergency (ER) | payer MEDICAID, SELFPAY ==
[2021-09-10 02:42] VITALS: BP 162/115; PULSE 111; RESP 18; TEMP 36.8; O2SAT 99; BMI 42.9
[2021-09-10 03:09] LABS: Absolute Lymphocyte Count 3.23 X10^3/uL (0.83-4.51); Absolute Neutrophil Count 4.1 X10^3/uL (2.0-7.7); Basophil# 0.03 X10^3/uL; Basophil% 0.4 % (0-1); Eosinophil# 0.19 X10^3/uL; Eosinophils% 2.3 % (0-5); Hematocrit 39.1 % (37-47); Hemoglobin 12.9 g/dL (12.0-15.0); Lymphocyte # 3.23 X10^3/ul (0.83-4.51); Lymphocyte % 39.3 % (19-41); Mean Corpuscular Hgb 29.4 pg (27.0-32.0); Mean Corpuscular Volume 89.1 fL (81-99); Mean Platelet Vol. 9.4 fl (6.2-12.0); Monocyte# 0.62 X10^3/uL; Monocyte% 7.6 % (0-10); NRBC Flagged by Analyzer 0 % (0-5); Neutrophil # 4.11 X10^3/uL (2.7-7.7); Platelet Count 311 K/mm3 (150-450); RBC Distribution Width CV 13.8 % (11.6-14.6); RBC Distribution Width SD 44.7 fl (35.1-43.9); Red Blood Count 4.39 M/mm3 (4.2-5.4); White Blood Count 8.2 K/mm3 (4.4-11.0)
[2021-09-10 03:32] LABS: Anion Gap 6 (5-15); BUN 13 mg/dL (7-18); BUN/Creat Ratio 20.2 RATIO (10-20); Chloride 111 mmol/L (98-107); Creatinine, Serum 0.64 mg/dL (0.55-1.02); EST Glomerular Filtration Rate 119 mL/min (>60); Est Glom Filt Rate - Afr Amer 144 mL/min (>60); Estimated Creatinine Clearance 131.81 ml/min; Glucose 119 mg/dL (74-106); Potassium 3.9 mmol/L (3.5-5.1); Sodium Level 145 mmol/L (136-145)
[2021-09-10 03:36] LABS: Amphetamine Urine VISTA NEGATIVE (<1000 ng/mL); Barbiturate Urine VISTA NEGATIVE (< 200 ng/mL); Benzodiazepine Urine VISTA NEGATIVE (< 200 ng/mL); Cocaine Urine VISTA NEGATIVE (< 300 ng/mL); Ecstacy Urine VISTA NEGATIVE (< 500 ng/mL); Methadone Urine VISTA NEGATIVE (< 300 ng/mL); PCP Urine VISTA NEGATIVE (< 25 ng/mL); THC Urine VISTA NEGATIVE (< 50 ng/mL); Vista UDS pH Range 6
[2021-09-10 03:42] VITALS: RESP 15
[2021-09-10 03:55] LABS: Internal QC Validated? YES +Cl - CLEAR BKGD; Pregnancy, Serum, hCG Quali. NEGATIVE Negative
[2021-09-10 04:15] VITALS: RESP 15
[2021-09-10 04:26] LABS: Alcohol, Blood (Medical)-Serum < 3.0 mg/dL
[2021-09-10 06:16] VITALS: BP 127/81; PULSE 83; TEMP 36.7; O2SAT 98
--- NOTE | 2021-09-10 07:43 | EX.ED.DYSGE1 ---
HPI History of Present Illness Chief Complaint: Suicidal Narrative Narrative: Patient is a 25-year-old female with past medical history of hypertension and bipolar disorder. She states that she attempted to commit suicide in 2017 by overdosing on Tylenol and metformin. She states that she is been feeling increased stress recently and began thinking of overdosing once again. She states her friend took her pills when she told her this and then she began thinking about slitting her throat. She states that she decided to call crisis center instead and after talking to her police were called and she was brought in for evaluation. The patient denies any illicit drug use or alcohol use or concern for [facility] Medical History Autism Bipolar 1 disorder Depression with anxiety Fatty liver IBS (irritable bowel syndrome) Migraines PCOS (polycystic ovarian syndrome) Home Medications aripiprazole 15 mg tablet (Abilify) 7.5 mg PO DAILY 04/05/17 [History Last Taken Unknown] lithium carbonate 300 mg capsule 300 mg PO BID 04/05/17 [History Last Taken Unknown] omeprazole 40 mg capsule,delayed release 40 mg PO DAILY 04/05/17 [History Last Taken Unknown] divalproex 500 mg tablet,extended release 24 hr 500 mg PO DAILY 12/05/20 [History Last Taken Unknown] naproxen 500 mg tablet 500 mg PO .COMPLEX #30 tabs 01/03/21 [Rx Last Taken Unknown] promethazine 25 mg tablet 25 mg PO TID PRN nausea and vomiting #14 tabs 01/18/21 [Rx Last Taken Unknown] metoclopramide HCl 10 mg tablet (Reglan) 10 mg PO Q8H PRN PRN nausea and vomiting #10 tabs 09/03/21 [Rx Last Taken Unknown] spironolactone 50 mg tablet See Rx Instructions .Route .COMPLEX #28 tabs 09/09/21 [Rx Last Taken Unknown] Allergy/AdvReac Type Severity Reaction Status Date / Time pollen extracts Allergy Hives Verified 09/10/21 02:50 escitalopram [From Lexapro] AdvReac Other Verified 09/10/21 02:50 lactase [From Dairy Aid] AdvReac Upset Verified 09/10/21 02:50 Stomach ondansetron AdvReac Anaphylaxis Verified 09/10/21 02:50 [From Zofran (as hydrochloride)] Family History Mother Uterine cancer Other Asthma Depression Diabetes GERD (gastroesophageal reflux disease) Heart disease Hyperlipidemia Hypertension Surgical History H/O knee surgery H/O spinal fusion History of tonsillectomy and adenoidectomy Social History household members: none housing: apartment current occupational status: unemployed history of recent travel: No Smoking Status: Never smoker alcohol intake: current alcohol intake frequency: holidays/special occasions only substance use type: does not use what type of physical activity do you participate in: walking frequency: daily seatbelt use: always do you feel safe at home: Yes additional social history: single ROS ROS ED Constitutional Constitutional ED: Denies chills or fever(s) ENT ENT ED: Denies sore throat Cardiovascular Cardiovascular: Denies chest pain Respiratory/Chest Respiratory/Chest: Denies cough or dyspnea Gastrointestinal Gastrointestinal: Denies abdominal pain, diarrhea, nausea or vomiting Genitourinary Genitourinary ED: Denies dysuria Musculoskeletal Musculoskeletal: Denies myalgias Integumentary Denies rash Neurologic Neurologic: Reports headache(s) Psychiatric Psychiatric: Reports depression, suicidal ideation and suicidal thoughts Hematologic/Lymphatic Hematologic/Lymphatic: Denies easy bleeding or easy bruising EXAM Physical Exam Const Vital Signs: 09/10/21 02:42 09/10/21 03:42 09/10/21 04:15 Temperature 98.2 F Temperature Source Oral Pulse Rate 111 H Respiratory Rate 18 15 15 Blood Pressure 162/115 H Blood Pressure Mean 130 Pulse Ox 99 Oxygen Delivery Method Room Air Room Air Room Air 09/10/21 06:16 Temperature 98.1 F Temperature Source Temporal Pulse Rate 83 Respiratory Rate Blood Pressure 127/81 H Blood Pressure Mean 96 Pulse Ox 98 Oxygen Delivery Method Room Air Positive well nourished, well developed and obese General Appearance ED: well developed Nutritional Appearance: obese Eyes PERRL and EOMs intact bilaterally Neck supple Resp normal respiratory effort and clear to auscultation bilaterally Cardio regular rate and regular rhythm GI non-tender and non-distended Auscultation: normoactive bowel sounds Palpation: soft Extremity normal to inspection Neuro oriented x3 and CN's II-XII intact bilaterally Sensorium / Orientation: alert Psych Psych Narrative: Patient has a depressed affect with suicidal ideation Skin no rashes or lesions noted MDM MDM MDM Narrative Medical decision making narrative: Patient presented to the ER mildly hypertensive and tachycardic but felt this was most like related to the stress of her presentation. As time went by her vital signs normalized. She reported that she had previously attempted to overdose on metformin and Tylenol in 2015 or 17 and had to be placed in a psychiatric institution at that time. With her suicidal ideation and plan she is at high risk for completing suicide and therefore she will need to be admitted to a psychiatric hospital. She underwent medical clearance screening and blood work revealed no clinically significant findings. Therefore at this time the patient is medically cleared and safe for transfer/placement in a psychiatric facility Lab Data Attestation: I reviewed the patient's lab results. Labs: Laboratory Results - last 24 hr 09/10/21 09/10/21 09/10/21 02:45 02:50 02:50 WBC 8.2 RBC 4.39 Hgb 12.9 Hct 39.1 MCV 89.1 MCH 29.4 MCHC 33.0 RDW Std Deviation 44.7 H RDW Coeff of Delmy 13.8 Plt Count 311 MPV 9.4 Immature Gran % (Auto) 0.400 Neut % (Auto) 50.0 Lymph % (Auto) 39.3 [place] % (Auto) 7.6 Eos % (Auto) 2.3 Baso % (Auto) 0.4 Absolute Neuts (auto) 4.1 Absolute Lymphs (auto) 3.23 Nucleated RBC % 0 Sodium 145 Potassium 3.9 Chloride 111 H Carbon Dioxide 28.0 Anion Gap 6 BUN 13 Creatinine 0.64 Estim Creat Clear Calc 131.81 Est GFR (MDRD) Af Amer 144 Est GFR (MDRD) Non-Af 119 BUN/Creatinine Ratio 20.2 H Glucose 119 H Calcium 9.0 Serum , Qual Urine Opiates Screen NEGATIVE Urine Methadone Screen NEGATIVE Ur Barbiturates Screen NEGATIVE Ur Phencyclidine Scrn NEGATIVE Ur Amphetamines Screen NEGATIVE MDMA (Ecstasy) Screen NEGATIVE U Benzodiazepines Scrn NEGATIVE Urine Cocaine Screen NEGATIVE U Cannabinoids Screen NEGATIVE Ur Drug Screen Comment Ethyl Alcohol 09/10/21 09/10/21 02:50 03:55 WBC RBC Hgb Hct MCV MCH MCHC RDW Std Deviation RDW Coeff of Delmy Plt Count MPV Immature Gran % (Auto) Neut % (Auto) Lymph % (Auto) [place] % (Auto) Eos % (Auto) Baso % (Auto) Absolute Neuts (auto) Absolute Lymphs (auto) Nucleated RBC % Sodium Potassium Chloride Carbon Dioxide Anion Gap BUN Creatinine Estim Creat Clear Calc Est GFR (MDRD) Af Amer Est GFR (MDRD) Non-Af BUN/Creatinine Ratio Glucose Calcium Serum , Qual NEGATIVE Urine Opiates Screen Urine Methadone Screen Ur Barbiturates Screen Ur Phencyclidine Scrn Ur Amphetamines Screen MDMA (Ecstasy) Screen U Benzodiazepines Scrn Urine Cocaine Screen U Cannabinoids Screen Ur Drug Screen Comment Ethyl Alcohol < 3.0 Discharge Plan Triage Chief Complaint: Suicidal ED Provider: Alexandr Smith Dx/Rx/DC Orders Clinical Impression: Depression with suicidal ideation, Bipolar 1 disorder, Autism Prescriptions: No Action naproxen 500 mg tablet 500 mg PO .COMPLEX Qty: 30 2RF Rx Instructions: 500 mg PO Q12 hr first 3 days of menses; administer with food or milk omeprazole 40 MG capsule,delayed release(DR/EC) 40 mg PO DAILY lithium carbonate 300 MG capsule 300 mg PO BID aripiprazole [Abilify] 15 MG tablet 7.5 mg PO DAILY divalproex 500 mg tablet extended release 24 hr 500 mg PO DAILY promethazine 25 mg tablet 25 mg PO TID PRN (Reason: nausea and vomiting) Qty: 14 0RF metoclopramide HCl [Reglan] 10 mg tablet 10 mg PO Q8H PRN PRN (Reason: nausea and vomiting) Qty: 10 0RF spironolactone 50 mg tablet See Rx Instructions .ROUTE .COMPLEX Qty: 28 0RF Dose Instruction: TAKE 1 TABLET BY MOUTH DAILY Rx Instructions: TAKE 1 TABLET BY MOUTH DAILY Primary [facility] - Disposition Disposition: Psychiatric Hospital or Unit Discharge Location: [facility]
[2021-09-10] MEDS: Divalproex (ER) 500 MG Tablet PO (09:00)
[2021-09-10] MEDS: Ibuprofen 400 MG Tablet 800 MG PO (09:00)
[2021-09-10] MEDS: Lithium Carbonate 150 MG Capsule 300 MG PO (09:01)
[2021-09-10 09:41] VITALS: BP 143/85; PULSE 89; RESP 16; TEMP 37.2; O2SAT 100
[2021-09-10] MEDS: Spironolactone 50 MG Tablet PO (10:35)
[2021-09-10 12:35] VITALS: BP 146/75; PULSE 82; RESP 15; O2SAT 98
== END 2021-09-10 12:38 ==
PROVIDERS: Emergency Provider Emergency Medicine; Visit Provider Emergency Medicine
DX: F31.9 Bipolar disorder, unspecified (principal); Z68.41 Body mass index [BMI] 40.0-44.9, adult; R45.851 Suicidal ideations; F84.0 Autistic disorder; I10 Essential (primary) hypertension; E28.2 Polycystic ovarian syndrome; K58.9 Irritable bowel syndrome, unspecified; F41.8 Other specified anxiety disorders; G43.909 Migraine, unspecified, not intractable, without status migrainosus; Z79.899 Other long term (current) drug therapy; Z91.51 Personal history of suicidal behavior; K76.0 Fatty (change of) liver, not elsewhere classified; E66.9 Obesity, unspecified
CPT/HCPCS: 80048; 80307; 82077; 84703; 85025; 87811; 99285

== ENCOUNTER → 2021-09-27 | Outpatient (CLI) | payer MEDICAID, SELFPAY ==
[2021-09-27 09:28] LABS: Absolute Lymphocyte Count 2.31 X10^3/uL (0.83-4.51); Absolute Neutrophil Count 3.5 X10^3/uL (2.0-7.7); Basophil# 0.04 X10^3/uL; Basophil% 0.6 % (0-1); Eosinophil# 0.11 X10^3/uL; Eosinophils% 1.7 % (0-5); Hematocrit 36.6 % (37-47); Hemoglobin 12.4 g/dL (12.0-15.0); Lymphocyte # 2.31 X10^3/ul (0.83-4.51); Lymphocyte % 36.1 % (19-41); Mean Corp Hgb Conc 33.9 g/dL (32-36); Mean Corpuscular Hgb 29.8 pg (27.0-32.0); Mean Platelet Vol. 9.6 fl (6.2-12.0); Monocyte# 0.46 X10^3/uL; Monocyte% 7.2 % (0-10); NRBC Flagged by Analyzer 0 % (0-5); Neutrophil # 3.46 X10^3/uL (2.7-7.7); Neutrophil % 54.1 % (47-70); Platelet Count 336 K/mm3 (150-450); RBC Distribution Width SD 45.2 fl (35.1-43.9); Red Blood Count 4.16 M/mm3 (4.2-5.4); White Blood Count 6.4 K/mm3 (4.4-11.0)
[2021-09-27 09:52] LABS: AST(SGOT) 54 U/L (15-37); Alanine Aminotransfer ALT/SGPT 149 U/L (13-56); Albumin, Serum 3.3 g/dL (3.2-5.0); Alkaline Phosphatase 56 U/L (45-117); Bilirubin, Direct 0.11 mg/dL (0.00-0.30); Globulin 3.8 g/dL (2.2-4.2); Iron 84 ug/dL (50-170); Iron Binding Capacity,Total 352 ug/dL (250-450); Protein, Total 7.1 g/dL (6.4-8.2)
== END | disposition home or self-care (01) ==
PROVIDERS: Visit Provider Nurse Practitioner Adult Health
DX: I10 Essential (primary) hypertension (principal); R74.8 Abnormal levels of other serum enzymes
CPT/HCPCS: 36415; 80076; 83540; 83550; 85025

== ENCOUNTER → 2021-11-30 | Outpatient (CLI) | payer MEDICAID, SELFPAY ==
--- NOTE | 2021-11-30 08:05 | US_ITS ---
STUDY: ABDOMINAL ULTRASOUND REASON FOR EXAM: Female, 26 years old. PAIN -- hx of IBS, NEPHROLITHIASIS TECHNIQUE: Transabdominal ultrasound was performed with real-time and static ching scale imaging. TECHNICAL QUALITY: Adequate. COMPARISON: Comparison is made with prior study dated 11/26/2020. FINDINGS: Liver: The liver is enlarged and measures 20.2 cm. There is increased echogenicity consistent with fatty infiltration. The bile ducts are within normal limits. There is hepatic color flow. The direction of portal flow is hepatopetal. There is no demonstrated mass lesion. Portal vein measurement: Gallbladder: Normal distended gallbladder. The gallbladder wall measures 2.8 mm. There is a negative sonographic Hansen''s sign. There is no pericholecystic fluid. There are no gallstones. Common Bile Duct (C.B.D.): The common bile duct measures 4.2 mm. Pancreas: Normal size of the head, body and tail of the pancreas. There is normal echogenicity of the pancreas. There is no demonstrated pancreatic mass or cyst. Spleen: There is splenomegaly. The spleen measures 13.3 cm x 6.3 cm x 6 cm. Right Kidney: Normal size of the right kidney. The right kidney measures 11.7 cm x 6.4 cm x 4.4 cm. Normal renal cortex. The right cortex measures 1.7 cm. There is no demonstrated renal mass or cyst. There is no right hydronephrosis. Left Kidney: Normal size of the left kidney. The left kidney measures 11.6 cm x 6.7 cm x 5.8 cm. Normal renal cortex. The left cortex measures 2.1 cm. There is no demonstrated renal mass or cyst. There is no left hydronephrosis. Aorta: Unremarkable I.V.C.: The IVC is patent. There is no ascites. US/Abdomen Complete IMPRESSION: Hepatosplenomegaly. Fatty infiltration of the liver. Electronically Signed: Dante Espitia MD at 15:39 EDT ,
[2021-11-30 08:18] LABS: Absolute Lymphocyte Count 2.45 X10^3/uL (0.83-4.51); Absolute Neutrophil Count 3.4 X10^3/uL (2.0-7.7); Basophil# 0.06 X10^3/uL; Basophil% 0.9 % (0-1); Eosinophil# 0.19 X10^3/uL; Eosinophils% 2.9 % (0-5); Hematocrit 37.5 % (37-47); Hemoglobin 12.2 g/dL (12.0-15.0); Lymphocyte # 2.45 X10^3/ul (0.83-4.51); Lymphocyte % 36.8 % (19-41); Mean Corp Hgb Conc 32.5 g/dL (32-36); Mean Corpuscular Hgb 29.9 pg (27.0-32.0); Mean Corpuscular Volume 91.9 fL (81-99); Mean Platelet Vol. 8.9 fl (6.2-12.0); Monocyte# 0.52 X10^3/uL; Monocyte% 7.8 % (0-10); NRBC Flagged by Analyzer 0 % (0-5); Neutrophil # 3.42 X10^3/uL (2.7-7.7); Neutrophil % 51.3 % (47-70); Platelet Count 318 K/mm3 (150-450); RBC Distribution Width CV 13.6 % (11.6-14.6); RBC Distribution Width SD 46.2 fl (35.1-43.9); Red Blood Count 4.08 M/mm3 (4.2-5.4); White Blood Count 6.7 K/mm3 (4.4-11.0)
[2021-11-30 08:58] LABS: ALB/GLOB Ratio 0.8 RATIO (0.9-2.4); AST(SGOT) 49 U/L (15-37); Alanine Aminotransfer ALT/SGPT 134 U/L (13-56); Albumin, Serum 3.4 g/dL (3.2-5.0); Alkaline Phosphatase 59 U/L (45-117); Anion Gap 6 (5-15); BUN 18 mg/dL (7-18); BUN/Creat Ratio 21.4 RATIO (10-20); Calcium,Total 9.1 mg/dL (8.5-10.1); Chloride 108 mmol/L (98-107); Cholesterol 190 mg/dL (200); Creatinine, Serum 0.84 mg/dL (0.55-1.02); EST Glomerular Filtration Rate 88 mL/min (>60); Est Glom Filt Rate - Afr Amer 106 mL/min (>60); Ferritin 237 ng/mL (8-252); Glucose 143 mg/dL (74-106); High Density Lipoprotein 29 mg/dL; Iron 72 ug/dL (50-170); Iron Binding Capacity,Total 369 ug/dL (250-450); Magnesium 2.1 mg/dL (1.6-2.6); Phosphorus 3.3 mg/dL (2.5-4.9); Potassium 4.9 mmol/L (3.5-5.1); Protein, Total 7.4 g/dL (6.4-8.2); Sodium Level 140 mmol/L (136-145); T4 Total, Thyroxin 9.3 ug/dL (4.8-13.9); Thyroid Stim Hormone (TSH) 4.91 uIU/mL (0.358-3.74); Triglycerides 208 mg/dL; Very Low Density Lipoprotein 42 mg/dL (5-40)
[2021-11-30 09:17] LABS: T3 Total - Triiodothyronine 0.99 ng/mL (0.6-1.81)
[2021-12-03 15:01] LABS: Copper, Serum or Plasma 117 ug/dL (80-158); Zinc, Plasma or Serum 80 ug/dL (44-115)
== END | disposition home or self-care (01) ==
DX: K76.0 Fatty (change of) liver, not elsewhere classified (principal); D64.9 Anemia, unspecified; R10.9 Unspecified abdominal pain; K29.70 Gastritis, unspecified, without bleeding; E73.9 Lactose intolerance, unspecified; R19.4 Change in bowel habit; K58.0 Irritable bowel syndrome with diarrhea
CPT/HCPCS: 36415; 76700; 80053; 80061; 82525; 82728; 83540; 83550; 83735; 84100; 84436; 84443; 84480; 84630; 85025

== ENCOUNTER → 2021-12-14 | Outpatient (CLI) | payer MEDICAID, SELFPAY ==
--- NOTE | 2021-12-14 07:24 | MRI_ITS ---
STUDY: MRI ORBITS WITH AND WITHOUT CONTRAST REASON FOR EXAM: Female, 26 years old. SUDDEN BILAT VISION LOSS TECHNIQUE: Standardized fat and water weighted pulse sequences were obtained in all 3 orthogonal planes, pre-and post contrast administration. clariscan 27ml IV was administered for the contrast portion of the examination. COMPARISON: Head CT dated JULY 24, 2020. MRI of the brain dated JULY 15, 2020 FINDINGS: Normal bilateral globes. Normal bilateral optic nerve sheath complexes and optic nerves. Normal bilateral intraconal and extraconal spaces. Normal bilateral extraocular muscles. Normal optic chiasm and post-chiasmatic tracts. Normal sella turcica, pituitary gland, infundibular stalk, and hypothalamus. Normal bilateral cavernous sinuses. Normal tectal plate and pineal gland. Normal flow voids within the major intracranial circulation suggesting patency by spin echo criteria. Normal midbrain, riya and medulla. Normal cerebellum. Normal basal cisterns. IMPRESSION: Normal enhanced and unenhanced MRI of the orbits. STUDY: MRI BRAIN WITH AND WITHOUT CONTRAST REASON FOR EXAM: Female, 26 years old. SUDDEN BILAT VISION LOSS TECHNIQUE: Standardized multiplanar fat and water weighted pulse sequences were obtained. clariscan 27ml IV was administered for the contrast portion of the examination. COMPARISON: Head CT dated JULY 24, 2020. MRI of the brain dated JULY 15, 2020 FINDINGS: Normal size of the ventricles and extra-axial spaces for the patient''s age. Normal white matter tracts of the supratentorial brain. There is no evidence for recent intracranial ischemia or other cause of cytotoxic edema on diffusion weighted imaging (DWI). Normal T2* images of the brain without demonstrated susceptibility artifact. There is no demonstrated hemosiderin stain. There are no demyelinating plagues of the supratentorial brain, brainstem or cerebellum. There are no findings suspicious for multiple sclerosis (MS). Incomplete fluid suppression signal seen on the FLAIR sequence at the most superior/apex region of the bilateral frontal lobes does not represent ischemic signal. Normal bilateral basal ganglia. Normal thalami. There is no extra-axial fluid accumulation. Normal flow voids within the major intracranial circulation suggesting patency by spin echo criteria. Normal venous enhancement. There is no enhancing intra-axial or extra-axial abnormality. No abnormal brain parenchymal lesions or enhancement is seen. There is no abnormal thickening or enhancement of the meninges or dura. Normal sella turcica, pituitary gland, infundibular stalk, optic chiasm and hypothalamus. Normal tectal plate and pineal gland. Normal midbrain, riya and medulla. Normal cerebellum. Normal basal cisterns. Normal bilateral temporal bones. Normal bilateral internal auditory canals. No demonstrated orbital abnormality, within the constraints of a routine brain study. Normal visualized paranasal sinuses. Normal calvarium and skull base. Normal visualized soft tissue structures. Normal visualized upper cervical spine. MRI/Brain W/WO Contrast IMPRESSION: Normal unenhanced and enhanced MRI of the brain. Electronically Signed: Yovany Banks MD at 11:48 EDT ,
[2021-12-14 08:13] LABS: ALB/GLOB Ratio 0.9 RATIO (0.9-2.4); AST(SGOT) 59 U/L (15-37); Alanine Aminotransfer ALT/SGPT 136 U/L (13-56); Albumin, Serum 3.3 g/dL (3.2-5.0); Alkaline Phosphatase 53 U/L (45-117); Anion Gap 3 (5-15); BUN 17 mg/dL (7-18); BUN/Creat Ratio 20.8 RATIO (10-20); Calcium,Total 8.8 mg/dL (8.5-10.1); Chloride 107 mmol/L (98-107); Creatinine, Serum 0.82 mg/dL (0.55-1.02); EST Glomerular Filtration Rate 90 mL/min (>60); Est Glom Filt Rate - Afr Amer 109 mL/min (>60); Globulin 3.6 g/dL (2.2-4.2); Glucose 122 mg/dL (74-106); Potassium 4.4 mmol/L (3.5-5.1); Protein, Total 6.9 g/dL (6.4-8.2); Sodium Level 137 mmol/L (136-145); Thyroid Stim Hormone (TSH) 6.04 uIU/mL (0.358-3.74)
[2021-12-16 07:08] LABS: T4 Free Direct 0.96 ng/dL (0.76-1.46)
== END | disposition home or self-care (01) ==
PROVIDERS: Registered Nurse; Referring Provider Ophthalmology; Visit Provider Ophthalmology
DX: H53.133 Sudden visual loss, bilateral (principal); F31.81 Bipolar II disorder; R94.6 Abnormal results of thyroid function studies; Z79.899 Other long term (current) drug therapy
CPT/HCPCS: 36415; 70553; 80053; 80178; 84439; 84443; A9575

== ENCOUNTER 2022-01-15 12:14 | Emergency (ER) | payer MEDICAID, SELFPAY ==
[2022-01-15 12:14] VITALS: BP 147/95; PULSE 113; RESP 15; RESP 16; TEMP 36.8; O2SAT 100; BMI 45.4
--- NOTE | 2022-01-15 12:51 | EKG12_ITS ---
Test Reason : CP Blood Pressure : / mmHG Vent. Rate : 102 BPM Atrial Rate : 102 BPM P-R Int : 158 ms QRS Dur : 078 ms QT Int : 336 ms P-R-T Axes : 050 011 014 degrees QTc Int : 437 ms Sinus tachycardia Minimal voltage criteria for LVH, may be normal variant ( R in aVL ) Borderline ECG Confirmed by RELL VARGAS, FOZIA ([id number]), editor & co founder SATYA FRANKLIN ([id number]) on 01/16/2022 12:05:09 PM Referred By: EMILIE Confirmed By:FOZIA ZACARIAS MD
--- NOTE | 2022-01-15 12:51 | ED.VIS.CHEST ---
HPI History of Present Illness Chief Complaint: Chest Pain Informant: patient and parent Narrative Narrative: 26-year-old female presenting to the emergency room with chief complaint of chest pain. Symptoms began during the night last night and is described as a pressure over her left breast. She notes some associated shortness of breath. No sweating. History of autism and bipolar disorder. She also notes a history of hypertension. The patient denies any DVT or PE risk factors. No known coronary artery disease. Non-smoker. [facility] Medical History Autism Bipolar 1 disorder Depression with anxiety Fatty liver IBS (irritable bowel syndrome) Migraines PCOS (polycystic ovarian syndrome) Home Medications aripiprazole 15 mg tablet (Abilify) 7.5 mg PO DAILY 04/05/17 [History Last Taken Unknown] lithium carbonate 300 mg capsule 300 mg PO BID 04/05/17 [History Last Taken Unknown] omeprazole 40 mg capsule,delayed release 40 mg PO DAILY 04/05/17 [History Last Taken Unknown] divalproex 500 mg tablet,extended release 24 hr 500 mg PO DAILY 12/05/20 [History Last Taken Unknown] naproxen 500 mg tablet 500 mg PO .COMPLEX #30 tabs 01/03/21 [Rx Last Taken Unknown] promethazine 25 mg tablet 25 mg PO TID PRN nausea and vomiting #14 tabs 01/18/21 [Rx Last Taken Unknown] metoclopramide HCl 10 mg tablet (Reglan) 10 mg PO Q8H PRN PRN nausea and vomiting #10 tabs 09/03/21 [Rx Last Taken Unknown] medroxyprogesterone 10 mg tablet 10 mg PO QDAY 10 days #10 tabs 09/28/21 [Rx Last Taken Unknown] spironolactone 50 mg tablet 50 mg PO BID #60 tabs 09/28/21 [Rx Last Taken Unknown] Allergy/AdvReac Type Severity Reaction Status Date / Time pollen extracts Allergy Hives Verified 09/28/21 09:11 escitalopram [From Lexapro] AdvReac Other Verified 09/28/21 09:11 lactase [From Dairy Aid] AdvReac Upset Verified 09/28/21 09:11 Stomach ondansetron AdvReac Anaphylaxis Verified 09/28/21 09:11 [From Zofran (as hydrochloride)] Family History Mother Uterine cancer Other Asthma Depression Diabetes GERD (gastroesophageal reflux disease) Heart disease Hyperlipidemia Hypertension Surgical History H/O knee surgery H/O spinal fusion History of tonsillectomy and adenoidectomy Social History household members: none housing: apartment current occupational status: unemployed history of recent travel: No Smoking Status: Never smoker alcohol intake: current alcohol intake frequency: holidays/special occasions only substance use type: does not use what type of physical activity do you participate in: walking frequency: daily seatbelt use: always do you feel safe at home: Yes additional social history: single ROS ROS ED Constitutional Constitutional ED: Denies chills or weight loss Eyes Eyes: Denies change in vision or diplopia ENT ENT ED: Denies ear pain, rhinorrhea or sore throat Cardiovascular Cardiovascular: Reports chest pain; Denies orthopnea, palpitations or racing heartbeat Respiratory/Chest Respiratory/Chest: Denies cough, dyspnea or orthopnea Gastrointestinal Gastrointestinal: Denies abdominal pain, diarrhea, nausea or vomiting Genitourinary Genitourinary ED: Denies dysuria, hematuria or urinary frequency Musculoskeletal Musculoskeletal: Denies arthralgias or myalgias Integumentary Denies abscess or rash Neurologic Neurologic: Denies headache(s) or weakness Psychiatric Psychiatric: Denies anxiety, depression, suicidal ideation or suicidal thoughts Endocrine Endocrinology: Denies polydipsia, polyphagia or polyuria Allergic/Immunologic Allergic/Immunologic ED: Denies mouth swelling, tongue swelling or urticaria EXAM Physical Exam Const Vital Signs: 01/15/22 12:14 01/15/22 12:14 01/15/22 14:06 Temperature 98.2 F Temperature Source Temporal Pulse Rate 113 H 113 H Respiratory Rate 16 15 Respiratory Effort Normal Non-Labored Blood Pressure 147/95 H 147/95 H Blood Pressure Mean 112 112 Pulse Ox 100 100 Oxygen Delivery Method Room Air Room Air 01/15/22 14:47 Temperature Temperature Source Pulse Rate 106 H Respiratory Rate 27 H Respiratory Effort Blood Pressure 128/82 H Blood Pressure Mean 97 Pulse Ox 99 Oxygen Delivery Method Room Air Positive well nourished, well developed and obese General Appearance ED: well developed Nutritional Appearance: obese HEENT Reports normocephalic, head/scalp atraumatic and moist mucous membranes Eyes PERRL and EOMs intact bilaterally Neck no lymphadenopathy, supple and no JVD Resp normal respiratory effort and clear to auscultation bilaterally Cardio regular rate, regular rhythm and no murmurs Rate: tachycardic GI normal to inspection, nondistended, normoactive bowel sounds and non-tender Palpation: soft Back/Spine no CVA tenderness and normal ROM Extremity normal to inspection General Extremety ED: Negative for edema General Extremity: Negative for edema Neuro oriented x3 Sensorium / Orientation: alert Psych Mood & Affect: Negative for depressed or tearful Skin no rashes or lesions noted and no wounds MDM MDM MDM Narrative Medical decision making narrative: My interpretation of the chest x-ray is no acute process. Patient has remained in a normal sinus rhythm on the monitor. CBC and BMP are negative. Troponin high-sensitivity is 5 and D-dimer is within the normal limits. At this point am not seeing any emergent cause to the patient's symptoms. I think it is reasonable that we discharge her home have her follow-up with primary care if symptoms persist. Lab Data Attestation: I reviewed the patient's lab results. Labs: Laboratory Results - last 24 hr 01/15/22 01/15/22 01/15/22 14:10 14:10 14:10 WBC 8.1 RBC 4.29 Hgb 13.0 Hct 39.7 MCV 92.5 MCH 30.3 MCHC 32.7 RDW Std Deviation 44.6 H RDW Coeff of Delmy 13.2 Plt Count 305 MPV 9.1 Immature Gran % (Auto) 0.400 Neut % (Auto) 58.8 Lymph % (Auto) 29.7 [place] % (Auto) 7.8 Eos % (Auto) 2.7 Baso % (Auto) 0.6 Absolute Neuts (auto) 4.7 Absolute Lymphs (auto) 2.40 Nucleated RBC % 0 D-Dimer Quant (PE/DVT) 0.36 Sodium 138 Potassium 4.4 Chloride 108 H Carbon Dioxide 27.0 Anion Gap 3 L BUN 13 Creatinine 0.62 Estim Creat Clear Calc 134.89 Est GFR (MDRD) Af Amer 150 Est GFR (MDRD) Non-Af 124 BUN/Creatinine Ratio 20.9 H Glucose 118 H Calcium 9.7 Troponin I High Sens 5 Radiography Diagnostic Testing: Clinical Impression(s) from Imaging Studies Chest X-Ray 01/15/22 13:08 IMPRESSION: No acute process of the chest. Electronically Signed: Yovany Banks MD at 13:43 EST Reading Location ID and State: [address] [place] [address] , Service support , EKG Initial EKG: Attestation: I personally reviewed and interpreted this EKG as follows: Comments: Sinus tachycardia ventricular rate of 102 bpm Prior: Changed Discharge Plan Triage Chief Complaint: Chest Pain ED Provider: Martin Pace Dx/Rx/DC Orders Clinical Impression: Chest pain, Hypertension Instructions: ED Chest Pain, Uncertain Cause Prescriptions: No Action naproxen 500 mg tablet 500 mg PO .COMPLEX Qty: 30 2RF Rx Instructions: 500 mg PO Q12 hr first 3 days of menses; administer with food or milk medroxyprogesterone 10 mg tablet 10 mg PO QDAY 10 Days Qty: 10 3RF Rx Instructions: Take daily for 10 days if no spontaneous menses every 3 months spironolactone 50 mg tablet 50 mg PO BID Qty: 60 11RF omeprazole 40 MG capsule,delayed release(DR/EC) 40 mg PO DAILY lithium carbonate 300 MG capsule 300 mg PO BID aripiprazole [Abilify] 15 MG tablet 7.5 mg PO DAILY divalproex 500 mg tablet extended release 24 hr 500 mg PO DAILY promethazine 25 mg tablet 25 mg PO TID PRN (Reason: nausea and vomiting) Qty: 14 0RF metoclopramide HCl [Reglan] 10 mg tablet 10 mg PO Q8H PRN PRN (Reason: nausea and vomiting) Qty: 10 0RF Primary Care Provider: [facility] Frances Trotter Referrals: [facility] Frances Trotter [Primary Care Provider] - As Needed Disposition Disposition: Home, Self Care
--- NOTE | 2022-01-15 13:08 | RAD_ITS ---
STUDY: X-RAY CHEST REASON FOR EXAM: Female, 26 years old. chest pain TECHNIQUE: Single AP portable view of the chest. COMPARISON: JULY 24, 2020 FINDINGS: Stable spinal hardware. The lungs are clear and expanded. There is no demonstrated pleural abnormality. Normal size heart. Normal mediastinum and daysi. Normal visualized pulmonary arteries. Normal visualized aortic arch and descending thoracic aorta. Normal visualized thoracic spine. Normal visualized ribs, clavicles, and shoulders. There is no demonstrated abnormality of the visualized soft tissue structures of the upper abdomen. RAD/Chest 1 View (Portable) IMPRESSION: No acute process of the chest. Electronically Signed: Yovany Banks MD at 13:43 EST ,
[2022-01-15 14:19] LABS: Absolute Neutrophil Count 4.7 X10^3/uL (2.0-7.7); Basophil# 0.05 X10^3/uL; Basophil% 0.6 % (0-1); Eosinophil# 0.22 X10^3/uL; Eosinophils% 2.7 % (0-5); Hematocrit 39.7 % (37-47); Lymphocyte % 29.7 % (19-41); Mean Corp Hgb Conc 32.7 g/dL (32-36); Mean Corpuscular Hgb 30.3 pg (27.0-32.0); Mean Corpuscular Volume 92.5 fL (81-99); Mean Platelet Vol. 9.1 fl (6.2-12.0); Monocyte# 0.63 X10^3/uL; Monocyte% 7.8 % (0-10); NRBC Flagged by Analyzer 0 % (0-5); Neutrophil # 4.74 X10^3/uL (2.7-7.7); Neutrophil % 58.8 % (47-70); Platelet Count 305 K/mm3 (150-450); RBC Distribution Width CV 13.2 % (11.6-14.6); RBC Distribution Width SD 44.6 fl (35.1-43.9); Red Blood Count 4.29 M/mm3 (4.2-5.4); White Blood Count 8.1 K/mm3 (4.4-11.0)
[2022-01-15 14:30] LABS: D-Dimer Quantitative (DVT/PE) 0.36 FEU/ug/m (0.27-0.49)
[2022-01-15 14:37] LABS: Anion Gap 3 (5-15); BUN 13 mg/dL (7-18); BUN/Creat Ratio 20.9 RATIO (10-20); Calcium,Total 9.7 mg/dL (8.5-10.1); Chloride 108 mmol/L (98-107); Creatinine, Serum 0.62 mg/dL (0.55-1.02); EST Glomerular Filtration Rate 124 mL/min (>60); Est Glom Filt Rate - Afr Amer 150 mL/min (>60); Estimated Creatinine Clearance 134.89 ml/min; Glucose 118 mg/dL (74-106); Potassium 4.4 mmol/L (3.5-5.1); Sodium Level 138 mmol/L (136-145); Troponin-I HS (w/2H Reflex) 5 pg/mL (3.0-54.0)
[2022-01-15 14:47] VITALS: BP 128/82; PULSE 106; RESP 27; O2SAT 99
[2022-01-15 15:27] VITALS: BP 124/80; PULSE 100; RESP 17; O2SAT 97
[2022-01-15 16:15] LABS: Reflex Troponin-HS? (from REC) Y
== END 2022-01-15 15:27 | disposition home or self-care (01) ==
PROVIDERS: Emergency Provider Emergency Medicine; Visit Provider Emergency Medicine
DX: R07.9 Chest pain, unspecified (principal); R06.02 Shortness of breath; I10 Essential (primary) hypertension; E66.9 Obesity, unspecified
CPT/HCPCS: 36415; 71045; 80048; 84484; 85025; 85379; 93005; 99283; A4216

== ENCOUNTER 2022-01-24 16:44 | Emergency (ER) | payer MEDICAID, SELFPAY ==
[2022-01-24 16:45] VITALS: BP 125/69; PULSE 99; RESP 15; TEMP 37.2; O2SAT 100; BMI 45.6
--- NOTE | 2022-01-24 20:05 | CT_ITS ---
STUDY: CT ABDOMEN AND PELVIS WITH CONTRAST REASON FOR EXAM: Female, 26 years old. Diarrhea RLQ abd pain RADIATION DOSAGE (If Supplied By Facility): CTDIvol = ( 22.07 ) mGy, DLP = ( 1348.00 ) mGycm TECHNIQUE: Transaxial images were obtained from the dome of the diaphragm to the symphysis pubis without oral contrast. IV 100mL Isovue-370 was administered. Sagittal and coronal images were reconstructed. Individualized dose optimization techniques were used for this CT. COMPARISON: September 20, 2018. FINDINGS: The visualized lung bases are unremarkable. The visualized portions of the heart are within normal limits. There is hepatomegaly with diffuse hepatic enlargement. Normal gallbladder and extrahepatic biliary system. Normal spleen. Normal pancreas. Normal bilateral adrenal glands. Normal right kidney. Normal left kidney. Normal visualized stomach. Normal small intestine. There is wall thickening of the right colon and hepatic flexure. The appendix is visualized and appears normal. Normal abdominal aorta. Normal inferior vena cava. Normal retroperitoneum. Normal urinary bladder. Normal visualized uterus. There is no free fluid in the abdomen or pelvis. Normal abdominal wall. There are postoperative changes of the spine with fusion from the thoracic to the lumbar region. CT/Abdomen/Pelvis W IV Cont ONLY IMPRESSION: Colitis on the right could be infectious or inflammatory. No obstruction. Hepatomegaly. No biliary dilatation. Electronically Signed: Jaylon Schwartz MD at 21:45 EST ,
[2022-01-24 20:32] LABS: Mucous, Urine 0 SEEN /hpf (<or=2+)
[2022-01-24 20:39] LABS: Color, Urine Yellow (Yellow); Glucose, Dipstick Normal (Normal); Ketone-Dipstick 5 mg/dl (Negative); Leukocyte Esterase-Dipstick 25 /ul (Negative); Nitrite-Dipstick Negative (Negative); Occult Blood-Urine 10 /ul (Negative); Protein-Dipstick 30 mg/dl (Negative); Specific Gravity, Urine 1.025 (1.002-1.030); Urine Bilirubin Dipstick Negative (Negative); Urine Clarity Sl. Cloudy (Clear); Urine Urobilinogen Normal (Normal)
[2022-01-24] MEDS: 0.9% Normal Saline 1,000 ML 1000 ML IV (20:39)
[2022-01-24] MEDS: Metoclopramide 10 MG/2 ML Vial IV (20:39)
[2022-01-24 20:42] LABS: Bacteria 1+ /hpf (None Seen); Red Blood Cells-Urine 0-5 SEEN /hpf (0-5); White Blood Cells 0-5 SEEN /hpf (0-5)
[2022-01-24 20:43] LABS: Squamous Epithelial Cells - UA 0-5 SEEN /hpf (5-10)
[2022-01-24 20:44] LABS: Internal QC Validated? YES +Cl - CLEAR BKGD; Pregnancy, Urine Negative Negative
[2022-01-24 20:44] LABS: Absolute Lymphocyte Count 2.71 X10^3/uL (0.83-4.51); Absolute Neutrophil Count 4.8 X10^3/uL (2.0-7.7); Basophil# 0.05 X10^3/uL; Basophil% 0.6 % (0-1); Eosinophil# 0.25 X10^3/uL; Eosinophils% 2.9 % (0-5); Hematocrit 37.9 % (37-47); Hemoglobin 12.4 g/dL (12.0-15.0); Lymphocyte # 2.71 X10^3/ul (0.83-4.51); Lymphocyte % 31.5 % (19-41); Mean Corp Hgb Conc 32.7 g/dL (32-36); Mean Corpuscular Volume 91.5 fL (81-99); Monocyte# 0.74 X10^3/uL; Monocyte% 8.6 % (0-10); NRBC Flagged by Analyzer 0 % (0-5); Neutrophil # 4.81 X10^3/uL (2.7-7.7); Neutrophil % 56.1 % (47-70); Platelet Count 328 K/mm3 (150-450); RBC Distribution Width CV 13.2 % (11.6-14.6); RBC Distribution Width SD 44.2 fl (35.1-43.9); Red Blood Count 4.14 M/mm3 (4.2-5.4); White Blood Count 8.6 K/mm3 (4.4-11.0)
--- NOTE | 2022-01-24 20:44 | EDS_ITS ---
HPI HPI - GI History of Present Illness Chief Complaint: Diarrhea Informant: patient Narrative Narrative: Patient is a 26-year-old female with history of autism, polycystic ovarian syndrome, IBS diarrhea type and bipolar disorder presenting with abdominal pain and diarrhea. Patient states she started having diarrhea yesterday. Is been multiple colors including yellow, sanford, brown, purple and black. She denies any blood or reddening. She did take Pepto-Bismol. She has been having diffuse abdominal pain that radiates all the way down her abdomen to her lower abdomen and into her vagina. She states that the pain is sharp and shooting. It lasts her about 2 minutes at a time. She gets it every 30 to 40 minutes. She is also had a fever of up to 101.1 ?F. She is taken Tylenol for her fever and her pain. Patient had multiple colonoscopies in the past because of her IBS. She denies any history of C. difficile but has been on 2 rounds of antibiotics for tooth infection (penicillin and what she thinks to be amoxicillin). She notes 3 weeks ago she was having pain/burning with urination. The symptoms have since improved. She denies a history of any abdominal surgeries. Her last menstrual period was 7 months ago which is not abnormal for her and she did start a medicine yesterday to bring on her menstrual cycle. Denies any sick contacts. Denies any URI symptoms. No other complaints at this time. [facility] Medical History Autism Bipolar 1 disorder Depression with anxiety Fatty liver IBS (irritable bowel syndrome) Migraines PCOS (polycystic ovarian syndrome) Home Medications aripiprazole 15 mg tablet (Abilify) 7.5 mg PO DAILY 04/05/17 [History Last Taken Unknown] lithium carbonate 300 mg capsule 300 mg PO DAILY 04/05/17 [History Last Taken Unknown] omeprazole 40 mg capsule,delayed release 40 mg PO DAILY 04/05/17 [History Last Taken Unknown] naproxen 500 mg tablet 500 mg PO .COMPLEX #30 tabs 01/03/21 [Rx Last Taken Unknown] promethazine 25 mg tablet 25 mg PO TID PRN nausea and vomiting #14 tabs 01/18/21 [Rx Last Taken Unknown] metoclopramide HCl 10 mg tablet (Reglan) 10 mg PO Q8H PRN PRN nausea and vomiting #10 tabs 09/03/21 [Rx Last Taken Unknown] spironolactone 50 mg tablet 50 mg PO BID #60 tabs 09/28/21 [Rx Last Taken Unknown] amitriptyline 25 mg tablet 25 mg PO QHS 01/24/22 [History Last Taken Unknown] ciprofloxacin HCl 500 mg tablet (Cipro) 500 mg PO Q12H #20 tabs 01/24/22 [Rx Last Taken Unknown] ferrous sulfate 325 mg (65 mg iron) tablet (FeroSul) 325 mg PO QODAY 01/24/22 [History Last Taken Unknown] hydroxyzine pamoate 25 mg capsule 25 mg PO TID 01/24/22 [History Last Taken Unknown] lithium carbonate 600 mg capsule 600 mg PO QHS 01/24/22 [History Last Taken Unknown] metronidazole 500 mg tablet 500 mg PO Q8H 10 days #30 tabs 01/24/22 [Rx Last Taken Unknown] spironolactone 50 mg tablet 25 mg PO BID 01/24/22 [History Last Taken Unknown] Allergy/AdvReac Type Severity Reaction Status Date / Time pollen extracts Allergy Hives Verified 01/24/22 16:45 escitalopram [From Lexapro] AdvReac Other Verified 01/24/22 16:45 lactase [From Dairy Aid] AdvReac Upset Verified 01/24/22 16:45 Stomach ondansetron AdvReac Anaphylaxis Verified 01/24/22 16:45 [From Zofran (as hydrochloride)] Family History Mother Uterine cancer Other Asthma Depression Diabetes GERD (gastroesophageal reflux disease) Heart disease Hyperlipidemia Hypertension Surgical History H/O knee surgery H/O spinal fusion History of tonsillectomy and adenoidectomy Social History household members: none housing: apartment current occupational status: unemployed history of recent travel: No Smoking Status: Never smoker alcohol intake: current alcohol intake frequency: holidays/special occasions only substance use type: does not use what type of physical activity do you participate in: walking frequency: daily seatbelt use: always do you feel safe at home: Yes additional social history: single ROS ROS ED Constitutional Constitutional ED: Reports chills and fever(s) ENT ENT ED: Denies rhinorrhea or sore throat Cardiovascular Cardiovascular: Denies chest pain or palpitations Respiratory/Chest Respiratory/Chest: Denies cough Gastrointestinal Gastrointestinal: Reports abdominal pain and diarrhea; Denies melena, nausea or vomiting Genitourinary Genitourinary ED: Reports dysuria; Denies hematuria or urinary frequency Musculoskeletal Musculoskeletal: Denies arthralgias or myalgias Integumentary Denies rash Neurologic Neurologic: Denies headache(s) or weakness Psychiatric Psychiatric: Reports anxiety Hematologic/Lymphatic Hematologic/Lymphatic: Denies easy bleeding or easy bruising EXAM Physical Exam Const Vital Signs: 01/24/22 16:45 01/24/22 21:00 01/24/22 23:05 Temperature 99.0 F Temperature Source Temporal Pulse Rate 99 84 Respiratory Rate 15 16 17 Blood Pressure 125/69 H 117/68 Blood Pressure Mean 87 84 Pulse Ox 100 95 Oxygen Delivery Method Room Air Room Air Room Air Positive well nourished and well developed General Appearance ED: well developed and NAD; Negative for pallor HEENT Reports moist mucous membranes normocephalic and atraumatic Eyes PERRL and EOMs intact bilaterally Neck supple and no JVD Resp normal respiratory effort and clear to auscultation bilaterally Cardio regular rate, regular rhythm and no murmurs GI Inspection: abdominal distention Auscultation: hypoactive bowel sounds Palpation: soft and tender RLQ and suprapubic; Negative for guarding or rigid Back/Spine no CVA tenderness Extremity full ROM Neuro moves all extremities Sensorium / Orientation: alert, oriented to person, oriented to place and oriented to time Motor Exam: Negative for general weakness Psych mental status grossly normal and thought process normal Skin no wounds General Skin Exam: Negative for jaundice or pallor MDM MDM MDM Narrative Medical decision making narrative: Patient evaluated for diarrhea and abdominal pain. Patient appears nontoxic and vital signs. She does have tenderness in her right lower quadrant and lab work as well as urinalysis and CT abdomen pelvis ordered. Patient's lab work is largely normal with no leukocytosis, SERGIO, electrolyte abnormality or signs of UTI. CT does show colitis of the right colon which could be infectious or inflammatory with no signs of obstruction. She continues to have hepatomegaly. Given that this colitis correlates with her area of pain will treat with antibiotics. Patient is encouraged to follow-up with GI. She is given referral for Dr. Oliva as her current GI is in [place]. She is started on Cipro and Flagyl given first dose in the ER. She is given return precautions. Patient agreeable this plan of care. Patient has no family history of personal history of inflammatory bowel disease. Lab Data Attestation: I reviewed the patient's lab results. Labs: Laboratory Results - last 24 hr 01/24/22 01/24/22 01/24/22 20:20 20:33 20:33 WBC 8.6 RBC 4.14 L Hgb 12.4 Hct 37.9 MCV 91.5 MCH 30.0 MCHC 32.7 RDW Std Deviation 44.2 H RDW Coeff of Delmy 13.2 Plt Count 328 MPV 9.0 Immature Gran % (Auto) 0.300 Neut % (Auto) 56.1 Lymph % (Auto) 31.5 [place] % (Auto) 8.6 Eos % (Auto) 2.9 Baso % (Auto) 0.6 Absolute Neuts (auto) 4.8 Absolute Lymphs (auto) 2.71 Nucleated RBC % 0 Sodium 137 Potassium 3.8 Chloride 109 H Carbon Dioxide 24.0 Anion Gap 4 L BUN 16 Creatinine 0.86 Estim Creat Clear Calc 97.24 Est GFR (MDRD) Af Amer 104 Est GFR (MDRD) Non-Af 86 BUN/Creatinine Ratio 18.6 Glucose 114 H Lactic Acid Calcium 9.0 Total Bilirubin 0.50 AST 63 H ALT 160 H Alkaline Phosphatase 57 Total Protein 7.3 Albumin 3.6 Globulin 3.7 Albumin/Globulin Ratio 1.0 Lipase 144 Urine Color Yellow Urine Clarity Sl. Cloudy Urine pH 5.0 Ur Specific [place] 1.025 Urine Protein 30 H Urine Glucose (UA) Normal Urine Ketones 5 H Urine Occult Blood 10 H Urine Nitrite Negative Urine Bilirubin Negative Urine Urobilinogen Normal Ur Leukocyte Esterase 25 H Urine RBC 0-5 SEEN Urine WBC 0-5 SEEN Ur Squamous Epith Cells 0-5 SEEN Urine Bacteria 1+ Urine Mucus 0 SEEN Urine Test Negative 01/24/22 20:33 WBC RBC Hgb Hct MCV MCH MCHC RDW Std Deviation RDW Coeff of Delmy Plt Count MPV Immature Gran % (Auto) Neut % (Auto) Lymph % (Auto) [place] % (Auto) Eos % (Auto) Baso % (Auto) Absolute Neuts (auto) Absolute Lymphs (auto) Nucleated RBC % Sodium Potassium Chloride Carbon Dioxide Anion Gap BUN Creatinine Estim Creat Clear Calc Est GFR (MDRD) Af Amer Est GFR (MDRD) Non-Af BUN/Creatinine Ratio Glucose Lactic Acid 0.8 Calcium Total Bilirubin AST ALT Alkaline Phosphatase Total Protein Albumin Globulin Albumin/Globulin Ratio Lipase Urine Color Urine Clarity Urine pH Ur Specific [place] Urine Protein Urine Glucose (UA) Urine Ketones Urine Occult Blood Urine Nitrite Urine Bilirubin Urine Urobilinogen Ur Leukocyte Esterase Urine RBC Urine WBC Ur Squamous Epith Cells Urine Bacteria Urine Mucus Urine Test Radiography Diagnostic Testing: Clinical Impression(s) from Imaging Studies Abdomen/Pelvis CT 01/24/22 20:05 IMPRESSION: Colitis on the right could be infectious or inflammatory. No obstruction. Hepatomegaly. No biliary dilatation. Electronically Signed: Jaylon Schwartz MD at 21:45 EST Reading Location ID and State: [address] [place] [address] , Service support , Discharge Plan Triage Chief Complaint: Diarrhea ED Provider: Coni Angelo Dx/Rx/DC Orders Clinical Impression: Colitis, Diarrhea Instructions: ED Understanding Colitis Prescriptions: New ciprofloxacin HCl [Cipro] 500 mg tablet 500 mg PO Q12H Qty: 20 0RF metronidazole 500 mg tablet 500 mg PO Q8H 10 Days Qty: 30 0RF No Action naproxen 500 mg tablet 500 mg PO .COMPLEX Qty: 30 2RF Rx Instructions: 500 mg PO Q12 hr first 3 days of menses; administer with food or milk spironolactone 50 mg tablet 50 mg PO BID Qty: 60 11RF omeprazole 40 MG capsule,delayed release(DR/EC) 40 mg PO DAILY lithium carbonate 300 MG capsule 300 mg PO DAILY aripiprazole [Abilify] 15 MG tablet 7.5 mg PO DAILY promethazine 25 mg tablet 25 mg PO TID PRN (Reason: nausea and vomiting) Qty: 14 0RF metoclopramide HCl [Reglan] 10 mg tablet 10 mg PO Q8H PRN PRN (Reason: nausea and vomiting) Qty: 10 0RF lithium carbonate 600 mg Capsule 600 mg PO QHS spironolactone 50 mg tablet 25 mg PO BID amitriptyline 25 mg tablet 25 mg PO QHS hydroxyzine pamoate 25 mg capsule 25 mg PO TID ferrous sulfate [FeroSul] 325 mg (65 mg iron) tablet 325 mg PO QODAY [facility] Referrals: FriendAndreas DO [Med Staff - Active Staff] - As Needed [facility],Frances Tierney [Primary Care Provider] - Activity Restrictions/Additional Instructions: Your CT showed some colitis on the right which is consistent with your pain. Please follow-up with your GI doctor. You been placed on a course of antibiotics. Disposition Disposition: Home, Self Care Discharge Date/Time: 01/24/22 23:06
[2022-01-24 21:00] VITALS: RESP 16
[2022-01-24 21:01] LABS: AST(SGOT) 63 U/L (15-37); Alanine Aminotransfer ALT/SGPT 160 U/L (13-56); Albumin, Serum 3.6 g/dL (3.2-5.0); Alkaline Phosphatase 57 U/L (45-117); Anion Gap 4 (5-15); BUN 16 mg/dL (7-18); BUN/Creat Ratio 18.6 RATIO (10-20); Chloride 109 mmol/L (98-107); Creatinine, Serum 0.86 mg/dL (0.55-1.02); EST Glomerular Filtration Rate 86 mL/min (>60); Est Glom Filt Rate - Afr Amer 104 mL/min (>60); Estimated Creatinine Clearance 97.24 ml/min; Globulin 3.7 g/dL (2.2-4.2); Glucose 114 mg/dL (74-106); Lipase 144 U/L (73-393); Potassium 3.8 mmol/L (3.5-5.1); Protein, Total 7.3 g/dL (6.4-8.2); Sodium Level 137 mmol/L (136-145)
[2022-01-24 21:09] LABS: Lactic Acid 0.8 mmol/L (0.4-1.9)
[2022-01-24] MEDS: metroNIDAZOLE 500 MG Tablet PO (22:53)
[2022-01-24] MEDS: Ciprofloxacin 500 MG Tablet PO (22:53)
[2022-01-24 23:05] VITALS: BP 117/68; PULSE 84; RESP 17; O2SAT 95
== END 2022-01-24 23:06 | disposition home or self-care (01) ==
PROVIDERS: Emergency Provider Emergency Medicine; Visit Provider Emergency Medicine
DX: R19.7 Diarrhea, unspecified (principal); F31.9 Bipolar disorder, unspecified; K58.0 Irritable bowel syndrome with diarrhea; F84.0 Autistic disorder; R10.84 Generalized abdominal pain; R16.0 Hepatomegaly, not elsewhere classified; R30.0 Dysuria
CPT/HCPCS: 74177; 80053; 81001; 81025; 83605; 83630; 83690; 85025; 87177; 87209; 87493; 87506; 96361; 96374; 99284; J7030; Q9967; A4216

== ENCOUNTER → 2022-01-31 | Outpatient (CLI) | payer MEDICAID, SELFPAY ==
[2022-01-31 10:25] LABS: T4 Free Direct 1.04 ng/dL (0.76-1.46); Thyroid Stim Hormone (TSH) 4.77 uIU/mL (0.358-3.74)
== END | disposition home or self-care (01) ==
LOC: LAB 09:23
DX: R94.6 Abnormal results of thyroid function studies (principal)
CPT/HCPCS: 36415; 84439; 84443

== ENCOUNTER → 2022-02-15 | Outpatient (CLI) | payer MEDICAID, SELFPAY ==
[2022-02-15 11:54] LABS: Absolute Lymphocyte Count 2.13 X10^3/uL (0.83-4.51); Absolute Neutrophil Count 4.4 X10^3/uL (2.0-7.7); Basophil# 0.04 X10^3/uL; Basophil% 0.5 % (0-1); Eosinophil# 0.17 X10^3/uL; Eosinophils% 2.3 % (0-5); Hematocrit 39.7 % (37-47); Hemoglobin 12.9 g/dL (12.0-15.0); Lymphocyte # 2.13 X10^3/ul (0.83-4.51); Lymphocyte % 29.1 % (19-41); Mean Corp Hgb Conc 32.5 g/dL (32-36); Mean Corpuscular Hgb 29.7 pg (27.0-32.0); Mean Corpuscular Volume 91.3 fL (81-99); Mean Platelet Vol. 8.9 fl (6.2-12.0); Monocyte% 6.8 % (0-10); NRBC Flagged by Analyzer 0 % (0-5); Neutrophil # 4.44 X10^3/uL (2.7-7.7); Neutrophil % 60.9 % (47-70); Platelet Count 367 K/mm3 (150-450); RBC Distribution Width CV 12.9 % (11.6-14.6); RBC Distribution Width SD 43.8 fl (35.1-43.9); Red Blood Count 4.35 M/mm3 (4.2-5.4); White Blood Count 7.3 K/mm3 (4.4-11.0)
[2022-02-15 12:07] LABS: International Normalized Ratio 1.1; Prothrombin Time (Protime)PT. 13.7 SECONDS (11.7-14.9)
[2022-02-15 12:19] LABS: Hemoglobin A1c 5.9 % (3.8-5.6)
[2022-02-15 12:21] LABS: Estradiol 42.6 pg/mL; Follicle Stimulating Hormone 3.8 mIU/mL
[2022-02-15 12:26] LABS: ALB/GLOB Ratio 0.9 RATIO (0.9-2.4); AST(SGOT) 33 U/L (15-37); Alanine Aminotransfer ALT/SGPT 92 U/L (13-56); Albumin, Serum 3.5 g/dL (3.2-5.0); Alkaline Phosphatase 52 U/L (45-117); Anion Gap 4 (5-15); BUN 14 mg/dL (7-18); BUN/Creat Ratio 19.9 RATIO (10-20); Calcium,Total 9.1 mg/dL (8.5-10.1); Chloride 109 mmol/L (98-107); EST Glomerular Filtration Rate 107 mL/min (>60); Est Glom Filt Rate - Afr Amer 130 mL/min (>60); Ferritin 138 ng/mL (8-252); Globulin 3.9 g/dL (2.2-4.2); Glucose 112 mg/dL (74-106); LDH 187 U/L (84-246); Potassium 4.4 mmol/L (3.5-5.1); Protein, Total 7.4 g/dL (6.4-8.2); Sodium Level 137 mmol/L (136-145)
[2022-02-15 12:43] LABS: Erythrocyte Sedimentation Rate 28 mm/hr (0-30)
[2022-02-15 12:50] LABS: HIV - WCH Non-Reactive (Nonreactive)
[2022-02-16 14:09] LABS: Anti-Centromere B Ab <0.2 AI (0.0-0.9); Anti-Chromatin <0.2 AI (0.0-0.9); Anti-Jo <0.2 AI (0.0-0.9); Anti-Scleroderma-70 AB <0.2 AI (0.0-0.9); RNP Ab <0.2 AI (0.0-0.9); SJOGREN'S Anti-SS-A test < 0.2 AI (0.0-0.9); SJOGREN'S Anti-SS-B test < 0.2 AI (0.0-0.9); Smith Ab <0.2 AI (0.0-0.9)
[2022-02-16 16:08] LABS: Endomysial Antibody IgA Negative (Negative)
[2022-02-16 21:04] LABS: Anti-Mitochondrial AB <20.0 Units (0.0-20.0); Anti-dsDNA Ab 1 IU/mL (0-9)
[2022-02-16 21:07] LABS: Immunoglobulin A 159 mg/dL (87-352); t-Transglutaminase IgA <2 U/mL (0-3)
[2022-02-19 19:07] LABS: Albumin 3.6 g/dL (2.9-4.4); Alpha-1-Globulins 0.2 g/dL (0.0-0.4); Alpha-2-Globulins 0.9 g/dL (0.4-1.0); Angiotensin Convert Enzyme 31 U/L (14-82); Ceruloplasmin 26.2 mg/dL (19.0-39.0); Cytoplasmic Ab (C-ANCA) <1:20 titer (Neg:<1:20); Gamma Globulin 1.1 g/dL (0.4-1.8); HEPATITIS B SURFACE AG Negative (Negative); Hep C Antibodies 0.1 s/co ratio (0.0-0.9); Hepatitis A IgM Antibody Negative (Negative); Hepatitis B Core AB IgM Negative (Negative); Immunoglobulin A 163 mg/dL (87-352); Immunoglobulin E 18 IU/mL (6-495); Immunoglobulin G 972 mg/dL (586-1602); Immunoglobulin M 115 mg/dL (26-217)
[2022-02-20 16:11] LABS: AFP, Tumor Marker < 1.8 ng/mL (0.0-4.7); Anti-Smooth Muscle ABS 9 Units (0-19); Copper, Serum or Plasma 128 ug/dL (80-158); Haptoglobin 219 mg/dL (33-278); Perinuclear Ab (P-ANCA) <1:20 titer (Neg:<1:20)
== END | disposition home or self-care (01) ==
LOC: LAB 11:13
PROVIDERS: Nurse Practitioner Women's Health; Referring Provider Internal Medicine Gastroenterology; Visit Provider Internal Medicine Gastroenterology
DX: R11.2 Nausea with vomiting, unspecified (principal); R19.7 Diarrhea, unspecified; N91.5 Oligomenorrhea, unspecified
CPT/HCPCS: 36415; 80053; 80074; 82105; 82140; 82164; 82390; 82525; 82670; 82728; 82784; 82785; 83001; 83010; 83036; 83516; 83615; 84146; 84165; 85025; 85610; 85652; 86140; 86225; 86235; 86255; 86256; 86334; 86703

== ENCOUNTER → 2022-02-17 | Outpatient (CLI) | payer MEDICAID, SELFPAY ==
[2022-02-22 19:23] LABS: Calprotectin, Stool 137 ug/g (0-120)
[2022-02-24 18:17] LABS: Pancreatic Elastase, Fecal 329 (>200)
== END | disposition home or self-care (01) ==
LOC: LAB 14:06 → LABSPEC 14:07
PROVIDERS: Referring Provider Internal Medicine Gastroenterology; Visit Provider Internal Medicine Gastroenterology
DX: R11.2 Nausea with vomiting, unspecified (principal); R19.7 Diarrhea, unspecified
CPT/HCPCS: 82653; 83630; 83993

== ENCOUNTER → 2022-02-28 | Outpatient (CLI) | payer MEDICAID, SELFPAY ==
[2022-02-28 09:41] LABS: Thyroid Stim Hormone (TSH) 3.69 uIU/mL (0.358-3.74)
[2022-02-28 10:35] LABS: T4 Free Direct 1.05 ng/dL (0.76-1.46)
[2022-03-04 18:07] LABS: Testosterone Free 2.8 pg/mL (0.0-4.2)
[2022-03-05 12:05] LABS: Thyroid Peroxidase AB < 9 IU/mL (0-34)
[2022-03-05 15:06] LABS: 17-Hydroxyprogesterone 61 ng/dL (.)
== END | disposition home or self-care (01) ==
PROVIDERS: Nurse Practitioner Women's Health; Referring Provider Registered Nurse; Visit Provider Registered Nurse
DX: F31.81 Bipolar II disorder (principal); Z79.899 Other long term (current) drug therapy; N89.8 Other specified noninflammatory disorders of vagina; N91.5 Oligomenorrhea, unspecified; Z13.29 Encounter for screening for other suspected endocrine disorder
CPT/HCPCS: 36415; 80178; 82627; 83498; 84402; 84439; 84443; 86376; 87070; 87077; 87186; 87205; 82626

== ENCOUNTER → 2022-03-07 | Outpatient (CLI) | payer MEDICAID, SELFPAY ==
--- NOTE | 2022-03-07 07:49 | US_ITS ---
EXAM: US PELVIS TRANSABDOMINAL, COMPLETE CLINICAL INDICATION: .OLIGOMENORRHEA TECHNIQUE: Transabdominal pelvic ultrasound was performed with grayscale and color Doppler imaging. This report was created using [employer] report [employer] technology. COMPARISON: None. FINDINGS: UTERUS/CERVIX: The uterus measures 7.2 x 3.1 x 4.2 cm. The endometrium measures 4 mm. Anteverted. There is no uterine mass. RIGHT OVARY: The right ovary measures 3.1 x 2.0 x 2.5 cm. Blood flow is present in the right ovary. LEFT OVARY: Left ovary measures 2.3 x 2.7 x 1.5 cm. Blood flow is present in the left ovary. FREE FLUID: None. BLADDER: The bladder measures 7.8 x 7.8 x 8.6 cm for volume of 275 mL. US/Pelvic (Non ) IMPRESSION: No acute findings in the pelvis. Electronically Signed: Rich Chi MD at 20:58 EST ,
--- NOTE | 2022-03-07 07:49 | US_ITS ---
STUDY: ABDOMINAL ULTRASOUND - ELASTOGRAPHY REASON FOR VISIT: Female, 26 years old. Hepatomegaly and fatty infiltration of the liver. TECHNIQUE: Liver stiffness measurements were obtained on a Prosonix RS 85 ultrasound machine using a CA 1-7 probe following the SRU guidelines. 3 measurements were obtained using a 2-D-SWE method. The IQR/M was 19% suggesting a quality data set. TECHNICAL QUALITY: Adequate. COMPARISON: Comparison is made with prior study done earlier today. FINDINGS: Liver: Hepatomegaly and fatty infiltration of the liver. Median liver stiffness measured 11.9 kPa. US/Elastography Parenchyma/Organ IMPRESSION: Liver stiffness measures 11.9 kPa compatible with F2-F3 (Mild to moderate liver fibrosis) Metavir score. Electronically Signed: Dante Espitia MD at 13:05 EST ,
--- NOTE | 2022-03-07 07:49 | US_ITS ---
STUDY: ABDOMINAL ULTRASOUND - RIGHT UPPER QUADRANT REASON FOR VISIT: Female, 26 years old . Hepatomegaly. Fatty attrition of the liver. TECHNIQUE: Ultrasound evaluation of the right upper quadrant was performed with real-time and static ching-scale imaging. TECHNICAL QUALITY: Adequate. COMPARISON: Comparison is made with prior study 11/30/2021. FINDINGS: Liver: The liver is enlarged and measures 21.5 cm. There is increased echogenicity consistent with fatty infiltration. The bile ducts are within normal limits. There is hepatic color flow. The direction of portal flow is hepatopetal. There is no demonstrated mass lesion. Gallbladder: Normal distended gallbladder. The gallbladder wall measures 2.1 mm. There is a negative sonographic Hansen''s sign. There is no pericholecystic fluid. There are no gallstones. Common Bile Duct (C.B.D.): The common bile duct measures 2.4 mm. Pancreas: Normal size of the head, body and tail of the pancreas. There is increased echogenicity of the pancreas. There is no demonstrated pancreatic mass or cyst. Right Kidney: Normal size of the right kidney. The right kidney measures 10.6 cm x 5.8 cm x 4.3 cm. Normal renal cortex. The right cortex measures 1.5 cm. There is no demonstrated renal mass or cyst. There is no right hydronephrosis. US/Abdomen Limited IMPRESSION: Hepatomegaly and diffuse fatty infiltration of the liver. Electronically Signed: Dante Espitia MD at 13:04 EST ,
== END | disposition home or self-care (01) ==
LOC: US 07:48
PROVIDERS: Referring Provider Internal Medicine Gastroenterology; Visit Provider Internal Medicine Gastroenterology
DX: K76.0 Fatty (change of) liver, not elsewhere classified (principal); N91.5 Oligomenorrhea, unspecified; R16.0 Hepatomegaly, not elsewhere classified; R19.7 Diarrhea, unspecified
CPT/HCPCS: 76705; 76856; 76981

== ENCOUNTER → 2022-03-15 | Outpatient (CLI) | payer MEDICAID, SELFPAY ==
--- NOTE | 2022-03-15 10:26 | NM_ITS ---
CLINICAL: 46-year-old female with history of suspected clinical gastroparesis. SEMI-SOLID PHASE 99m Tc SULFUR COLLOID GASTRIC EMPTYING STUDY COMPARISON: None available FINDINGS: The patient was administered 1.1 mCi of 99m Tc sulfur colloid mixed with oatmeal and consumed per os. Image acquisitions in the anterior-posterior projections were obtained for 60 minutes. There is prompt visualization of the stomach. There is no gastroesophageal reflux identified. The T ? raw data emptying and linear fit were not calculable, (Normal: 12-56 minutes). NM/Gastric Emptying Study IMPRESSION: 1. SEVERELY ABNORMAL 99m Tc sulfur colloid semi-solid phase (oatmeal) gastric emptying imaging examination. A. There is markedly delayed semi-solid phase gastric emptying compared to normal controls. (Geno et al, J Nucl Med Tech 38: 186, 2010). Electronically Signed: Vinay Ramirez, at 14:20 EST ,
== END | disposition home or self-care (01) ==
PROVIDERS: Referring Provider Internal Medicine Gastroenterology; Visit Provider Internal Medicine Gastroenterology
DX: R11.2 Nausea with vomiting, unspecified (principal); R19.7 Diarrhea, unspecified
CPT/HCPCS: 78264; A9541

== ENCOUNTER 2022-08-08 12:24 | Day surgery (SDC) | payer MEDICAID, SELFPAY ==
[2022-08-08] VITALS (8 sets, daily range): BP systolic 113–125; BP diastolic 63–93; PULSE 82–113; RESP 16–18; TEMP 36.6; O2SAT 100; BMI 46.4
--- NOTE | 2022-08-08 | GASB_PTH ---
PATIENT: DIAZ DOUGLAS LOC: EN U#:[id number] AGE/SX: 26/F ROOM: RE08/08/[address]: Dr. Andreas Oliva DO : 1995 BED: DIS: 08/08/2022 SPEC #: [id number] RECD: 08/08/22 17:05 STATUS: DARRYL NUVIA #: [id number] CLEMENTINA: 08/08/22 00:[address]: Andreas Oliva DEPT: SURGICAL PATHOLOGY RECD BY: Denis Howard ENTERED: 08/09/22 09:14 SP TYPE: Gastric Bx OTHR DR: [facility] Tissues: A - Duodenum, NOS B - Gastric mucous membrane C - Esophageal mucous membrane D - Ileum, NOS E - Sigmoid colon biopsy Procedures: Surgery Specimen Level IV HEADER OPERATION: Colonoscopy with biopsy, EGD with biopsy ([facility] [place]) PRE-OP DIAGNOSIS: Nausea, vomiting & diarrhea, gastroparesis TISSUE SUBMITTED: A ? Duodenum biopsy, B ? Gastric body biopsy, C ? Random esophagus biopsy, D ? Ileocecal valve biopsy, E ? Sigmoid biopsy MICROSCOPIC DIAGNOSIS A. Duodenum, biopsy: No pathologic change. B. Gastric body, biopsy: Mild chronic gastritis. See comment. C. Esophagus, random biopsy: No pathologic change. D. Ileocecal valve, biopsy: Focal acute enteritis, nonspecific. E. Sigmoid colon, biopsy: No pathologic change. AM:paradise 08/10/2022 COMMENT B. The results of immunohistochemistry for Helicobacter pylori will be reported separately ([id number]). MICROSCOPIC DESCRIPTION Slides are reviewed. GROSS DESCRIPTION A - Received in fixative is one container labeled with the patient's name and designated duodenum. The specimen consists of one irregular fragment of light sanford soft tissue that measures 0.6 x 0.6 x 0.1 cm. The specimen is totally submitted in one cassette. B - Received in fixative is one container labeled with the patient's name and designated gastric body. The specimen consists of multiple irregular fragments of light sanford soft tissue that in aggregate measure 1.0 x 0.3 x 0.1 cm. The specimen is totally submitted in one cassette. C - Received in fixative is one container labeled with the patient's name and designated random esophagus. The specimen consists of two irregular fragments of light sanford soft tissue that in aggregate measure 0.8 x 0.5 x 0.1 cm. The specimen is totally submitted in one cassette. D - Received in fixative is one container labeled with the patient's name and designated ileocecal valve. The specimen consists of two irregular fragments of light sanford soft tissue that in aggregate measure 0.8 x 0.6 x 0.1 cm. The specimen is totally submitted in one cassette. E - Received in fixative is one container labeled with the patient's name and designated sigmoid biopsy. The specimen consists of one irregular fragment of light sanford soft tissue that measures 0.7 x 0.6 x 0.1 cm. The specimen is totally submitted in one cassette. / AM:paradise 08/09/2022 TC:2 CPT: 40553 x5
[2022-08-08] MEDS: Lactated Ringers 1,000 ML 15 ML IV (12:53)
[2022-08-08 13:09] LABS: Internal QC Validated? YES +Cl - CLEAR BKGD; Pregnancy, Serum, hCG Quali. NEGATIVE Negative
--- NOTE | 2022-08-08 13:30 | IMM_PTH ---
PATIENT: DIAZ DOUGLAS LOC: EN U#:[id number] AGE/SX: 26/F ROOM: RE08/08/[address]: Dr. Andreas Oliva DO : 1995 BED: DIS: 08/08/2022 SPEC #: [id number] RECD: 08/09/22 09:29 STATUS: DARRYL REQ #: [id number] CLEMENTINA: 08/08/22 13:[address]: Andreas Oliva DEPT: IMMUNOHISTOCHEMISTRY RECD BY: Lachelle Nichols ENTERED: 08/09/22 09:29 SP TYPE: IMMUNO OTHR DR: [facility] Tissues: B - Stomach, NOS Procedures: H Pylori (initial) PHYSICIAN & INSTITUTION [place] [id number] SPECIMEN INFORMATION: Tissue Source: B ? Gastric body Clinical Info: Nausea, vomiting & diarrhea, gastroparesis Specimen Number: [id number] CPT code: 55288 METHODOLOGY: Deparaffinized sections of prefer/formalin-fixed tissue or PAP/DQ stained slides are incubated with monoclonal/polyclonal antibodies/oligonucleotide probes. Localization is made via biotin free immunoperoxidase method. Appropriate controls are performed and reacted as expected. Results on target cell population are indicated in the following table: RESULTS: ANTIBODY / CLONE RESULT Block B H Pylori (polyclonal) negative These tests were developed and their performance characteristics determined by [facility]. They may not have been cleared or approved by the U.S. Food and Drug Administration. The FDA has determined that such clearance or approval is not necessary. The above immunohistochemical/dualISH markers are ordered and reviewed by the Pathologist. INTERPRETATION: B. Gastric body, biopsy: Negative for Helicobacter pylori organisms. AM:paradise 08/10/2022
--- NOTE | 2022-08-08 14:26 | PCM.HP.BLA ---
History and Physical Date of Admission: 08/08/22 DIAZ DOUGLAS, is a 26 F who presents to the office today for PMH autism, bipolar type 1, PCOS [facility] ED on multiple occasions over the years with N/V, headache, diarrhea, CP. Stool studies for infection have been performed throughout the years with calprotectin, C.Difficile, EP, O/P WNL each time. CT abd/pel 03.04.16?abd pain/diarrhea mild hepatomegaly, homogeneous; splenomegaly; multiple fluid-filled small bowel loops; diverticulosis. Stool 11.11.15?lactoferrin + US RUQ 2.16.16?abd pain hepatomegaly 18.7cm with fatty infiltration. HIDA ..17?EF 88%. When compared to 04.06.15 scan there is continued evidence of duodenal-gastric reflux. GI and hepatology specialists established in 2018 with diarrhea, bloating, abd pain, N/V and diagnosed with IBS-D and GERD. ?[facility] Celiac 12.12.17?without positive findings. EGD 01.03.18?advanced to small bowel noting bile in stomach and mild gastritis. No pathologic changes. US 06.27.?hepatic measurement 18cm with increased echogenicity. ?EGD 09.08.20?advanced to small bowel noting gastritis, mild. Remaining exam without acute/chronic finding. H.Pylori -. ?Colonoscopy 10.08.20?advanced to noting internal hemorrhoids without visual abnormality. Without pathologic changes. [facility] ED visits continue as noted above. US RUQ 10..21?abd pain hepatomegaly 19cm with fatty infiltration. US ABD 11.30.?abd pain hepatomegaly 20.2cm with fatty infiltration; splenomegaly. No ascites. Biochemical workup ?T3, T4, CBC, CMP, TIBC, iron, ferritin, copper, zinc, selenium without pertinent abnormality. ? TSH H4.91 [facility] ED visit prompting referral 01.24.22 with diffuse abdominal pain and diarrhea. She has had issue with diarrhea for many years and has received a diagnosis of IBS-D. Most recent colonoscopy 2020. Discharged without acute concern with cipro/flagyl. ?Biochemical workup?CBC, CMP, lipase without concern. LFT AST H63/ALT H160/ AP57 (AST/ALT ratio 0.39). ?CT abd/pel?diffuse hepatomegaly, normal spleen; wall thickening of right colon/hepatic flexure. ?Stool studies?lactoferrin, EP, C.Difficile, O/P WNL. Calprotectin, elastase, giardia not run. PCP OV as ED f/u 01.31.2022 with biochemical results TSH H4.77; T4WNL. *[facility] established 02.15.22 following [facility] ED presentation. Diaz has had multiple ED visits. Clinic presentation she had concern regarding postprandial nausea and diarrhea with intermittent emesis; feelings of early satiety for several hours resulting in decreased PO intake; left sided abdominal discomfort with frequent stooling with mucous, no blood. Biochemical?CMP, CBC, ESR, HIV, ferritin, LDH, coagulation, AMA, ASM, LEN comp, ANCA, hepatitis, CARLA, AFP, celiac, ceruloplasmin, copper, GAME, haptoglobin, XIOMARA, ammonia without pertinent abnormality. A1c H5.9, CRP H4.50, IBD profile suggestive of Crohn?s without disease stratification (AMCA, ANCA).? LFT AST 33/ALT H92/AP52 Stool studies lactoferrin, elastase WNL.? Calprotectin H137 ?US and elastography 03.07.22?hepatomegaly 21.5cm with fatty infiltration stiffness measures 11.9kPa; pancreatic increased echogenicity. ?Gastric emptying study 03.15.22?time unable to be calculated. Contact with results; flaquita Ponce and regaydee OV 06.06.22 She continues to have difficulty with nausea and loose stools with reduction of severity and frequency. ROS Const Constitutional: Positive for body ache, fatigue and headache(s); No chills or fever(s) Eyes Eyes: No change in vision ENT ENT: Positive for nasal congestion, nasal discharge, post nasal drip and headache(s); No ear or mastoid pain, sinus pain, neck pain or sore throat Resp Respiratory: Positive for cough; No shortness of breath Cardio Cardiology: No chest pain at rest Gastro GI: Positive for diarrhea Musc Musculoskeletal: No neck pain Skin Skin: No rash Neuro Neurology: Positive for headache(s) Endo Endocrine: Positive for fatigue Exam Const General: cooperative Nutritional Appearance: obese HENMT Head: normal to inspection Ears: TM's normal bilaterally Nose: external nose normal Face and sinus: normal facial exam Mouth: oral mucosae normal Throat: posterior oropharynx normal Neck Lymphatic: no lymphadenopathy noted Resp Effort & Inspection: normal respiratory effort Auscultation: Bilateral: Clear to Auscultation Cardio Rate: regular rate Rhythm: regular rhythm Quality Reporting Tobacco Screening ([facility] 138) Smoking Status: Never smoker Assessment and Plan Assessment and Plan (1) Nausea vomiting and diarrhea: ?Status:?Chronic ?Plan: She will undergo an upper and lower endoscopy to evaluate her upper lower GI tract. The procedure we allow us to place a capsule into her small bowel because she cannot swallow pills. (2) Gastroparesis: ?Status:?Chronic ?Plan: Frequently study shows that she has severe gastroparesis.? She has taken Reglan therapy without any side effects such as tardive dyskinesia but she stopped taking it because she thought it was only a as needed medicine.? Her gastric getting study displayed a time over 500 minutes.? I told her mother that I suspect it is from her psychiatric medicines that she takes on a daily basis for bipolar disorder.? I will give her a scheduled prescription to take 5 mg p.o. 3 times daily for approximately 1 month.? I explained to her that most of the side effects such as tardive dyskinesia do occur in people that have pre-existing psychiatric condition to her on pre-existing psychiatric medicines.? However in order to keep her out of the hospital I think we should try and treat her gastroparesis.? We also talked about a gastroparesis diet and other things that she can do on a daily basis including good blood sugar control to promote gastric emptying.? She says that she is having intermittent diarrhea stools are not want to give her Linzess or Amitiza for her nausea vomiting and gastroparesis because it can make her diarrhea worse. ? ? ? Medications: Refilled metoclopramide HCl (Reglan) 5 mg (1/2 x 10 mg) PO BID 21 tabs 0RF nausea and vomiting ? ? Discontinued [id number] 40,000-126,000- 168,000 unit (Zenpep) ?? take three capsules with meals ?? Discontinued Reason:? Order Completed 3 caps? PO TID 189 caps 0RF DIAZ DOUGLAS, is a 26 F who presents to the office today for PMH autism, bipolar type 1, PCOS [facility] ED on multiple occasions over the years with N/V, headache, diarrhea, CP. Stool studies for infection have been performed throughout the years with calprotectin, C.Difficile, EP, O/P WNL each time. CT abd/pel ..16?abd pain/diarrhea mild hepatomegaly, homogeneous; splenomegaly; multiple fluid-filled small bowel loops; diverticulosis. Stool 11.10.16?lactoferrin + US RUQ 2.16.16?abd pain hepatomegaly 18.7cm with fatty infiltration. HIDA 4.24.17?EF 88%. When compared to ..16 scan there is continued evidence of duodenal-gastric reflux. GI and hepatology specialists established in 2018 with diarrhea, bloating, abd pain, N/V and diagnosed with IBS-D and GERD. ?[facility] Celiac 12.12.17?without positive findings. EGD 01.03.18?advanced to small bowel noting bile in stomach and mild gastritis. No pathologic changes. US 5..19?hepatic measurement 18cm with increased echogenicity. ?EGD 09.08.20?advanced to small bowel noting gastritis, mild. Remaining exam without acute/chronic finding. H.Pylori -. ?Colonoscopy 10.08.20?advanced to TI noting internal hemorrhoids without visual abnormality. Without pathologic changes. [facility] ED visits continue as noted above. US RUQ 10.8.21?abd pain hepatomegaly 19cm with fatty infiltration. US ABD 11.30.21?abd pain hepatomegaly 20.2cm with fatty infiltration; splenomegaly. No ascites. Biochemical workup ?T3, T4, CBC, CMP, TIBC, iron, ferritin, copper, zinc, selenium without pertinent abnormality. ? TSH H4.91 [facility] ED visit prompting referral 01.24.22 with diffuse abdominal pain and diarrhea. She has had issue with diarrhea for many years and has received a diagnosis of IBS-D. Most recent colonoscopy 2020. Discharged without acute concern with cipro/flagyl. ?Biochemical workup?CBC, CMP, lipase without concern. LFT AST H63/ALT H160/ AP57 (AST/ALT ratio 0.39). ?CT abd/pel?diffuse hepatomegaly, normal spleen; wall thickening of right colon/hepatic flexure. ?Stool studies?lactoferrin, EP, C.Difficile, O/P WNL. Calprotectin, elastase, giardia not run. PCP OV as ED f/u 01.31.2022 with biochemical results TSH H4.77; T4WNL. *[facility] established 02.15.22 following [facility] ED presentation. Diaz has had multiple ED visits. Clinic presentation she had concern regarding postprandial nausea and diarrhea with intermittent emesis; feelings of early satiety for several hours resulting in decreased PO intake; left sided abdominal discomfort with frequent stooling with mucous, no blood. Biochemical?CMP, CBC, ESR, HIV, ferritin, LDH, coagulation, AMA, ASM, LEN comp, ANCA, hepatitis, CARLA, AFP, celiac, ceruloplasmin, copper, GAME, haptoglobin, XIOMARA, ammonia without pertinent abnormality. A1c H5.9, CRP H4.50, IBD profile suggestive of Crohn?s without disease stratification (AMCA, ANCA).? LFT AST 33/ALT H92/AP52 Stool studies lactoferrin, elastase WNL.? Calprotectin H137 ?US and elastography 03.07.22?hepatomegaly 21.5cm with fatty infiltration stiffness measures 11.9kPa; pancreatic increased echogenicity. ?Gastric emptying study 03.15.22?time unable to be calculated. Contact with results; start Creon and reglan OV 06.06.22 She continues to have difficulty with nausea and loose stools with reduction of severity and frequency. ROS Const Constitutional: Positive for body ache, fatigue and headache(s); No chills or fever(s) Eyes Eyes: No change in vision ENT ENT: Positive for nasal congestion, nasal discharge, post nasal drip and headache(s); No ear or mastoid pain, sinus pain, neck pain or sore throat Resp Respiratory: Positive for cough; No shortness of breath Cardio Cardiology: No chest pain at rest Gastro GI: Positive for diarrhea Musc Musculoskeletal: No neck pain Skin Skin: No rash Neuro Neurology: Positive for headache(s) Endo Endocrine: Positive for fatigue Exam Const General: cooperative Nutritional Appearance: obese HENMT Head: normal to inspection Ears: TM's normal bilaterally Nose: external nose normal Face and sinus: normal facial exam Mouth: oral mucosae normal Throat: posterior oropharynx normal Neck Lymphatic: no lymphadenopathy noted Resp Effort & Inspection: normal respiratory effort Auscultation: Bilateral: Clear to Auscultation Cardio Rate: regular rate Rhythm: regular rhythm Quality Reporting Tobacco Screening ([facility] 138) Smoking Status: Never smoker Assessment and Plan Assessment and Plan (1) Nausea vomiting and diarrhea: ?Status:?Chronic ?Plan: She will undergo an upper and lower endoscopy to evaluate her upper lower GI tract. The procedure we allow us to place a capsule into her small bowel because she cannot swallow pills. (2) Gastroparesis: ?Status:?Chronic ?Plan: Frequently study shows that she has severe gastroparesis.? She has taken Reglan therapy without any side effects such as tardive dyskinesia but she stopped taking it because she thought it was only a as needed medicine.? Her gastric getting study displayed a time over 500 minutes.? I told her mother that I suspect it is from her psychiatric medicines that she takes on a daily basis for bipolar disorder.? I will give her a scheduled prescription to take 5 mg p.o. 3 times daily for approximately 1 month.? I explained to her that most of the side effects such as tardive dyskinesia do occur in people that have pre-existing psychiatric condition to her on pre-existing psychiatric medicines.? However in order to keep her out of the hospital I think we should try and treat her gastroparesis.? We also talked about a gastroparesis diet and other things that she can do on a daily basis including good blood sugar control to promote gastric emptying.? She says that she is having intermittent diarrhea stools are not want to give her Linzess or Amitiza for her nausea vomiting and gastroparesis because it can make her diarrhea worse. ? ? ? Medications: Refilled metoclopramide HCl (Reglan) 5 mg (1/2 x 10 mg) PO BID 21 tabs 0RF nausea and vomiting ? ? Discontinued [id number] 40,000-126,000- 168,000 unit (Zenpep) ?? take three capsules with meals ?? Discontinued Reason:? Order Completed 3 caps? PO TID 189 caps 0RF I have examined the patient and the H&P has been reviewed. There are no clinical changes since date of exam.
--- NOTE | 2022-08-08 15:01 | OP.EGD_ITS ---
Patient Name: Marion Gutierrez Procedure Date: 08/08/2022 2:16 PM Date of : 1995 Age: 26 Procedure: Upper GI endoscopy Indications: Epigastric abdominal pain Providers: Andreas Oliva DO Referring MD: Andreas Oliva DO Medicines: Monitored Anesthesia Care Patient Profile: This is a 26 year old female. Refer to note in patient chart for documentation of history and physical. Patient has symptoms. Complications: No immediate complications. Procedure: Pre-Anesthesia Assessment: - Prior to the procedure, a History and Physical was performed, and patient medications and allergies were reviewed. The patient is competent. The risks and benefits of the procedure and the sedation options and risks were discussed with the patient. All questions were answered and informed consent was obtained. Patient identification and proposed procedure were verified by the physician in the pre-procedure area. Mental Status Examination: alert and oriented. Prophylactic Antibiotics: The patient does not require prophylactic antibiotics. Prior Anticoagulants: The patient has taken no previous anticoagulant or antiplatelet agents. ASA Grade Assessment: II - A patient with mild systemic disease. After reviewing the risks and benefits, the patient was deemed in satisfactory condition to undergo the procedure. The anesthesia plan was to use monitored anesthesia care (MAC). Immediately prior to administration of medications, the patient was re-assessed for adequacy to receive sedatives. The heart rate, respiratory rate, oxygen saturations, blood pressure, adequacy of pulmonary ventilation, and response to care were monitored throughout the procedure. The physical status of the patient was re-assessed after the procedure. After obtaining informed consent, the endoscope was passed under direct vision. Throughout the procedure, the patient's blood pressure, pulse, and oxygen saturations were monitored continuously. The was introduced through the mouth, and advanced to the second part of duodenum. The upper GI endoscopy was accomplished without difficulty. The patient tolerated the procedure well. Scope In: 2:31:44 PM Scope Out: 2:35:58 PM Total Procedure Duration Time 0 hours 4 minutes 14 seconds Findings: Non-severe esophagitis with no bleeding was found 37 to 39 cm from the incisors. Biopsies were obtained from the proximal and distal esophagus with cold forceps for histology of suspected eosinophilic esophagitis. Patchy mildly erythematous mucosa without bleeding was found in the gastric body. Biopsies were taken with a cold forceps for histology. Biopsies were taken with a cold forceps for histology. Verification of patient identification for the specimen was done. Patchy mildly erythematous mucosa without active bleeding and with no stigmata of bleeding was found in the duodenal bulb. Biopsies were taken with a cold forceps for histology. Verification of patient identification for the specimen was done. Estimated blood loss was minimal. Impression: - Non-severe non-erosive esophagitis. Biopsied. - Erythematous mucosa in the gastric body. Biopsied. - Erythematous duodenopathy. Biopsied. Recommendation: - Discharge patient to home. - Resume previous diet. - Continue present medications. - Await pathology results. - Repeat upper endoscopy. Procedure Code(s): --- Professional --- 81775, Esophagogastroduodenoscopy, flexible, transoral; with biopsy, single or multiple CPT copyright 2017 [employer]. All rights reserved. The codes documented in this report are preliminary and upon intelligence group supervisor review may be revised to meet current compliance requirements. Andreas Oliva DO 08/08/2022 3:00:57 PM This report has been signed electronically. Number of Addenda: 0 Note Initiated On: 08/08/2022 2:16 PM
--- NOTE | 2022-08-08 15:01 | OP.CCLET_ITS ---
08/08/2022 Frances Tierney [facility] Re : Upper GI endoscopy procedure for Marion Márquez [facility] This procedure was performed on Monday, August 08, 2022. My impressions and recommendations are as follows: Impressions : - Non-severe non-erosive esophagitis. Biopsied. - Erythematous mucosa in the gastric body. Biopsied. - Erythematous duodenopathy. Biopsied. Recommendations : - Discharge patient to home. - Resume previous diet. - Continue present medications. - Await pathology results. - Repeat upper endoscopy. My findings are described in the full procedure note, which is enclosed. If I can be of further assistance, please feel free to contact me at . Sincerely, Andreas Oliva, 08/08/2022 3:00:57 PM This report has been signed electronically.
--- NOTE | 2022-08-08 15:04 | OP.COLON_ITS ---
Patient Name: Marion Gutierrez Procedure Date: 08/08/2022 2:36 PM Date of : 1995 Age: 26 Procedure: Colonoscopy Indications: Clinically significant diarrhea of unexplained origin Providers: Andreas Oliva DO Referring MD: Andreas Oliva DO Medicines: Monitored Anesthesia Care Patient Profile: This is a 26 year old female. Refer to note in patient chart for documentation of history and physical. Patient has symptoms. Last Colonoscopy: date unknown. Unable to locate last colonoscopy report. Complications: No immediate complications. Procedure: Pre-Anesthesia Assessment: - Prior to the procedure, a History and Physical was performed, and patient medications and allergies were reviewed. The patient is competent. The risks and benefits of the procedure and the sedation options and risks were discussed with the patient. All questions were answered and informed consent was obtained. Patient identification and proposed procedure were verified by the physician in the pre-procedure area. Mental Status Examination: alert and oriented. Prophylactic Antibiotics: The patient does not require prophylactic antibiotics. Prior Anticoagulants: The patient has taken no previous anticoagulant or antiplatelet agents. ASA Grade Assessment: II - A patient with mild systemic disease. After reviewing the risks and benefits, the patient was deemed in satisfactory condition to undergo the procedure. The anesthesia plan was to use monitored anesthesia care (MAC). Immediately prior to administration of medications, the patient was re-assessed for adequacy to receive sedatives. The heart rate, respiratory rate, oxygen saturations, blood pressure, adequacy of pulmonary ventilation, and response to care were monitored throughout the procedure. The physical status of the patient was re-assessed after the procedure. After I obtained informed consent, the scope was passed under direct vision. Throughout the procedure, the patient's blood pressure, pulse, and oxygen saturations were monitored continuously. The was introduced through the anus and advanced to the terminal ileum. The colonoscopy was performed without difficulty. The patient tolerated the procedure well. The quality of the bowel preparation was fair. Scope In: 2:38:27 PM Scope Withdrawal Time 0 hours 9 minutes 22 seconds Scope Out: 2:51:55 PM Total Procedure Duration Time 0 hours 13 minutes 28 seconds Findings: The perianal and digital rectal examinations were normal. An area of mildly congested mucosa was found in the recto-sigmoid colon and in the sigmoid colon. Biopsies were taken with a cold forceps for histology. Verification of patient identification for the specimen was done. Estimated blood loss was minimal. Impression: - Preparation of the colon was fair. - Congested mucosa in the recto-sigmoid colon and in the sigmoid colon. Biopsied. Recommendation: - Discharge patient to home. - Resume previous diet. - Continue present medications. - Await pathology results. - Repeat colonoscopy for surveillance. Procedure Code(s): --- Professional --- 56065, Colonoscopy, flexible; with biopsy, single or multiple CPT copyright 2017 [employer]. All rights reserved. The codes documented in this report are preliminary and upon print shop manager review may be revised to meet current compliance requirements. Andreas Oliva DO 08/08/2022 3:03:38 PM This report has been signed electronically. Number of Addenda: 0 Note Initiated On: 08/08/2022 2:36 PM
--- NOTE | 2022-08-08 15:04 | OP.CCLET_ITS ---
08/08/2022 Frances Tierney [facility] Re : [facility] This procedure was performed on Monday, August 08, 2022. My impressions and recommendations are as follows: Impressions : - Preparation of the colon was fair. - Congested mucosa in the recto-sigmoid colon and in the sigmoid colon. Biopsied. Recommendations : - Discharge patient to home. - Resume previous diet. - Continue present medications. - Await pathology results. - Repeat colonoscopy for surveillance. My findings are described in the full procedure note, which is enclosed. If I can be of further assistance, please feel free to contact me at . Sincerely, Andreas Oliva, 08/08/2022 3:03:38 PM This report has been signed electronically.
== END 2022-08-08 16:01 | disposition home or self-care (01) ==
LOC: EN 12:25 → AC 12:26
PROVIDERS: Anesthesiology; Referring Provider Internal Medicine Gastroenterology; Visit Provider Internal Medicine Gastroenterology
PROC: 0DJD8ZZ Inspection of Lower Intestinal Tract, Via Natural or Artificial Opening Endoscopic (ICD-10-PCS; CPT 45378; principal; 2022-08-08 13:25)
DX: R19.7 Diarrhea, unspecified (principal); F31.9 Bipolar disorder, unspecified; R10.13 Epigastric pain; K31.84 Gastroparesis; R11.2 Nausea with vomiting, unspecified; K20.90 Esophagitis, unspecified without bleeding; K29.50 Unspecified chronic gastritis without bleeding
CPT/HCPCS: 43239; 45380; 84703; 88305; 88342

== ENCOUNTER 2022-08-15 19:00 | Emergency (ER) | payer MEDICAID, SELFPAY ==
[2022-08-15 19:01] VITALS: BP 127/87; PULSE 111; RESP 17; TEMP 36.8; O2SAT 100; BMI 46.5
--- NOTE | 2022-08-15 19:18 | ED.RN ---
Patient had upper and lower GI test last Sunday and patient c/o nausea and diarrhea since testing completion. Called office and had dicyclomine and Imodium recommended. Patient has slight relief but not pain free. Patient states watery diarrhea if eating anything solid.
[2022-08-15] MEDS: 0.9% Normal Saline 1,000 ML 1000 ML IV (20:00)
[2022-08-15] MEDS: Metoclopramide 10 MG/2 ML Vial IV (20:02)
[2022-08-15 20:06] LABS: Mucous, Urine 0 SEEN /hpf (<or=2+); Red Blood Cells-Urine 0 SEEN /hpf (0-5)
[2022-08-15 20:07] LABS: Absolute Lymphocyte Count 2.71 X10^3/uL (0.83-4.51); Absolute Neutrophil Count 5.7 X10^3/uL (2.0-7.7); Basophil# 0.05 X10^3/uL; Basophil% 0.5 % (0-1); Eosinophil# 0.17 X10^3/uL; Eosinophils% 1.8 % (0-5); Hematocrit 38.4 % (37-47); Hemoglobin 12.6 g/dL (12.0-15.0); Lymphocyte # 2.71 X10^3/ul (0.83-4.51); Lymphocyte % 28.3 % (19-41); Mean Corp Hgb Conc 32.8 g/dL (32-36); Mean Corpuscular Hgb 28.7 pg (27.0-32.0); Mean Corpuscular Volume 87.5 fL (81-99); Monocyte# 0.88 X10^3/uL; Monocyte% 9.2 % (0-10); NRBC Flagged by Analyzer 0 % (0-5); Neutrophil # 5.69 X10^3/uL (2.7-7.7); Neutrophil % 59.6 % (47-70); Platelet Count 311 K/mm3 (150-450); RBC Distribution Width CV 13.5 % (11.6-14.6); RBC Distribution Width SD 43.6 fl (35.1-43.9); Red Blood Count 4.39 M/mm3 (4.2-5.4); White Blood Count 9.6 K/mm3 (4.4-11.0)
[2022-08-15 20:07] LABS: Color, Urine Yellow (Yellow); Glucose, Dipstick Normal (Normal); Ketone-Dipstick Negative (Negative); Leukocyte Esterase-Dipstick 25 /ul (Negative); Nitrite-Dipstick Negative (Negative); Occult Blood-Urine Negative /ul (Negative); Protein-Dipstick 15 mg/dl (Negative); Urine Bilirubin Dipstick Negative (Negative); Urine Clarity Sl. Cloudy (Clear); Urine Urobilinogen Normal (Normal)
[2022-08-15] MEDS: Morphine 4 MG/ML Syringe IV (20:07)
[2022-08-15] MEDS: LORazepam 2 MG/ML Syringe 1 MG IV (20:08)
[2022-08-15 20:16] LABS: Bacteria 1+ /hpf (None Seen); Squamous Epithelial Cells - UA 0-5 SEEN /hpf (5-10); White Blood Cells 0-5 SEEN /hpf (0-5)
--- NOTE | 2022-08-15 20:17 | ED.VIS.GI ---
HPI HPI - GI History of Present Illness Chief Complaint: Abd Pain Narrative Narrative: 26-year-old female with history of IBS-D, gastroparesis, morbid obesity, bipolar disorder presenting with nausea, vomiting, diarrhea. She states been going on since she had her endoscopy, Dr. Oliva a week ago. She states called the office and was put on antiemetics and antidiarrheals but every time she eats something she has diarrhea. She cannot hold down fluids. She has abdominal cramping but no outright pain. No urinary complaints. No fevers or chills. PFSH PFS Medical History Anxiety Arthritis Autism Back pain Bipolar 1 disorder Bipolar disorder Depression with anxiety Dietary restriction Fatty liver Heartburn History of echocardiogram IBS (irritable bowel syndrome) Migraine headache Migraines Non-smoker PCOS (polycystic ovarian syndrome) Syncope Wears glasses Home Medications aripiprazole 15 mg tablet (Abilify) 7.5 mg PO DAILY 04/05/17 [History Last Taken Unknown] lithium carbonate 300 mg capsule 300 mg PO DAILY 04/05/17 [History Last Taken Unknown] amitriptyline 25 mg tablet 25 mg PO QHS 01/24/22 [History Last Taken Unknown] ferrous sulfate 325 mg (65 mg iron) tablet (FeroSul) 325 mg PO QODAY 01/24/22 [History Last Taken Unknown] hydroxyzine pamoate 25 mg capsule 25 mg PO TID 01/24/22 [History Last Taken Unknown] lithium carbonate 600 mg capsule 600 mg PO QHS 01/24/22 [History Last Taken Unknown] losartan 50 mg tablet 50 mg PO DAILY 02/28/22 [History Last Taken Unknown] metoclopramide HCl 10 mg tablet (Reglan) 5 mg PO BID nausea and vomiting #28 tabs 06/21/22 [Rx Last Taken Unknown] pantoprazole 40 mg tablet,delayed release 40 mg PO DAILY 08/04/22 [History Last Taken Unknown] spironolactone 50 mg tablet See Rx Instructions .Route .COMPLEX #56 TABLETS 08/04/22 [Rx Last Taken Unknown] dicyclomine 10 mg capsule 10 mg PO BID PRN abdominal pain #60 caps 08/11/22 [Rx Last Taken Unknown] promethazine 25 mg tablet 25 mg PO TID PRN nausea and vomiting #20 tabs 08/15/22 [Rx Last Taken Unknown] Allergy/AdvReac Type Severity Reaction Status Date / Time metformin Allergy Mild Nausea/Vom/ Verified 08/15/22 19:03 Diarrhea pollen extracts Allergy Hives Verified 08/15/22 19:03 escitalopram [From Lexapro] AdvReac Other Verified 08/15/22 19:03 lactase [From Dairy Aid] AdvReac Upset Verified 08/15/22 19:03 Stomach ondansetron AdvReac Anaphylaxis Verified 08/15/22 19:03 [From Zofran (as hydrochloride)] Family History Mother Uterine cancer Other Asthma Depression Diabetes GERD (gastroesophageal reflux disease) Heart disease Hyperlipidemia Hypertension Surgical History H/O knee surgery H/O spinal fusion History of colonoscopy History of esophagogastroduodenoscopy (EGD) History of tonsillectomy and adenoidectomy Social History household members: none housing: apartment current occupational status: unemployed history of recent travel: No Smoking Status: Never smoker alcohol intake: current alcohol intake frequency: holidays/special occasions only substance use type: does not use what type of physical activity do you participate in: walking frequency: daily seatbelt use: always do you feel safe at home: Yes additional social history: single ROS ROS ED Constitutional Constitutional ED: Denies chills, fever(s) or sweats Eyes Eyes: Denies blurry vision or change in vision ENT ENT ED: Denies ear pain or sore throat Cardiovascular Cardiovascular: Denies chest pain, palpitations or racing heartbeat Respiratory/Chest Respiratory/Chest: Denies cough, dyspnea or sputum Gastrointestinal Gastrointestinal: Reports abdominal pain, diarrhea and nausea; Denies constipation or vomiting Genitourinary Genitourinary ED: Denies dysuria, hematuria or urinary frequency Musculoskeletal Musculoskeletal: Denies arthralgias, myalgias or neck pain Integumentary Denies abscess, Abrasions or rash Neurologic Neurologic: Denies headache(s), paresthesias or weakness Psychiatric Psychiatric: Denies anxiety, depression, suicidal ideation or suicidal thoughts Endocrine Endocrinology: Denies polydipsia or polyuria EXAM Physical Exam Const Vital Signs: 08/15/22 19:01 08/15/22 20:47 Temperature 98.2 F Temperature Source Temporal Pulse Rate 111 H 99 Respiratory Rate 17 16 Blood Pressure 127/87 H 119/64 Blood Pressure Mean 100 82 Pulse Ox 100 Oxygen Delivery Method Room Air Room Air Positive well nourished General Appearance ED: NAD; Negative for pallor HEENT Reports moist mucous membranes normocephalic and atraumatic Eyes PERRL and EOMs intact bilaterally Resp normal respiratory effort and clear to auscultation bilaterally Cardio regular rate and regular rhythm GI non-distended GI Narrative: Benign abdomen Neuro CN's II-XII intact bilaterally Sensorium / Orientation: alert, oriented to person, oriented to place and oriented to time Motor Exam: strength 5/5 throughout Psych mental status grossly normal Skin General Skin Exam: Negative for jaundice or pallor MDM MDM MDM Narrative Medical decision making narrative: Patient presenting with nausea, diarrhea, abdominal cramping, diarrhea. This does not sound new. She is diagnosed with IBS-D. It may have been worsened by this endoscopy. We will obtain a CBC to assess white blood cell count, hemoglobin, platelets. Urinalysis to assess for UTI, BMP to assess renal function electrolytes. We will check a lithium level as well. Discussed with Dr. Oliva and he recommended 1 mg of Ativan and 4 mg of morphine to help with the diarrhea. CBC and CMP unremarkable. Urinalysis negative for infection. hCG negative. [place] level is normal. Patient feeling better on reevaluation. I will discharge her home and have follow-up with Dr. Oliva. She was given a prescription for Phenergan. Impression: 1. Nausea 2. Diarrhea 3. Abdominal cramping Lab Data Labs: Laboratory Results - last 24 hr 08/15/22 08/15/22 08/15/22 19:50 19:57 19:57 WBC 9.6 RBC 4.39 Hgb 12.6 Hct 38.4 MCV 87.5 MCH 28.7 MCHC 32.8 RDW Std Deviation 43.6 RDW Coeff of Delmy 13.5 Plt Count 311 MPV 9.0 Immature Gran % (Auto) 0.600 Neut % (Auto) 59.6 Lymph % (Auto) 28.3 [place] % (Auto) 9.2 Eos % (Auto) 1.8 Baso % (Auto) 0.5 Absolute Neuts (auto) 5.7 Absolute Lymphs (auto) 2.71 Nucleated RBC % 0 Sodium 140 Potassium 3.9 Chloride 109 H Carbon Dioxide 25.0 Anion Gap 6 BUN 11 Creatinine 0.68 Estim Creat Clear Calc 122.99 Est GFR (MDRD) Af Amer 135 Est GFR (MDRD) Non-Af 112 BUN/Creatinine Ratio 16.2 Glucose 121 H Calcium 9.0 Total Bilirubin 0.40 AST 49 H ALT 128 H Alkaline Phosphatase 67 Total Protein 7.1 Albumin 3.2 Globulin 3.9 Albumin/Globulin Ratio 0.8 L Lipase 45 Serum , Qual Urine Color Yellow Urine Clarity Sl. Cloudy Urine pH 6.0 Ur Specific [place] 1.020 Urine Protein 15 H Urine Glucose (UA) Normal Urine Ketones Negative Urine Occult Blood Negative Urine Nitrite Negative Urine Bilirubin Negative Urine Urobilinogen Normal Ur Leukocyte Esterase 25 H Urine RBC 0 SEEN Urine WBC 0-5 SEEN Ur Squamous Epith Cells 0-5 SEEN Urine Bacteria 1+ Urine Mucus 0 SEEN [place] 08/15/22 08/15/22 19:57 19:57 WBC RBC Hgb Hct MCV MCH MCHC RDW Std Deviation RDW Coeff of Delmy Plt Count MPV Immature Gran % (Auto) Neut % (Auto) Lymph % (Auto) [place] % (Auto) Eos % (Auto) Baso % (Auto) Absolute Neuts (auto) Absolute Lymphs (auto) Nucleated RBC % Sodium Potassium Chloride Carbon Dioxide Anion Gap BUN Creatinine Estim Creat Clear Calc Est GFR (MDRD) Af Amer Est GFR (MDRD) Non-Af BUN/Creatinine Ratio Glucose Calcium Total Bilirubin AST ALT Alkaline Phosphatase Total Protein Albumin Globulin Albumin/Globulin Ratio Lipase Serum , Qual NEGATIVE Urine Color Urine Clarity Urine pH Ur Specific [place] Urine Protein Urine Glucose (UA) Urine Ketones Urine Occult Blood Urine Nitrite Urine Bilirubin Urine Urobilinogen Ur Leukocyte Esterase Urine RBC Urine WBC Ur Squamous Epith Cells Urine Bacteria Urine Mucus [place] 0.60 Discharge Plan Triage Chief Complaint: Abd Pain ED Provider: David Etienne Dx/Rx/DC Orders Instructions: ED Abdominal Pain Unkn Cause Fem, ED Diet Vomiting Diarrhea Prescriptions: New promethazine 25 mg tablet 25 mg PO TID PRN (Reason: nausea and vomiting) Qty: 20 0RF No Action losartan 50 mg tablet 50 mg PO DAILY lithium carbonate 300 MG capsule 300 mg PO DAILY aripiprazole [Abilify] 15 MG tablet 7.5 mg PO DAILY lithium carbonate 600 mg Capsule 600 mg PO QHS amitriptyline 25 mg tablet 25 mg PO QHS hydroxyzine pamoate 25 mg capsule 25 mg PO TID ferrous sulfate [FeroSul] 325 mg (65 mg iron) tablet 325 mg PO QODAY pantoprazole 40 mg Tablet,Delayed Release (Dr/Ec) 40 mg PO DAILY metoclopramide HCl [Reglan] 10 mg tablet 5 mg PO BID Qty: 28 11RF spironolactone 50 mg tablet See Rx Instructions .ROUTE .COMPLEX Qty: 56 0RF Dose Instruction: TAKE 1 TABLET BY MOUTH TWICE A DAY Rx Instructions: TAKE 1 TABLET BY MOUTH TWICE A DAY dicyclomine 10 mg capsule 10 mg PO BID PRN (Reason: abdominal pain) Qty: 60 1RF Primary Care Provider: Frances Clayton Referrals: [facility] Frances Trotter [Primary Care Provider] - Disposition Disposition: Home, Self Care
[2022-08-15 20:29] LABS: ALB/GLOB Ratio 0.8 RATIO (0.9-2.4); AST(SGOT) 49 U/L (15-37); Alanine Aminotransfer ALT/SGPT 128 U/L (13-56); Albumin, Serum 3.2 g/dL (3.2-5.0); Alkaline Phosphatase 67 U/L (45-117); Anion Gap 6 (5-15); BUN 11 mg/dL (7-18); BUN/Creat Ratio 16.2 RATIO (10-20); Chloride 109 mmol/L (98-107); Creatinine, Serum 0.68 mg/dL (0.55-1.02); EST Glomerular Filtration Rate 112 mL/min (>60); Est Glom Filt Rate - Afr Amer 135 mL/min (>60); Estimated Creatinine Clearance 122.99 ml/min; Globulin 3.9 g/dL (2.2-4.2); Glucose 121 mg/dL (74-106); Lipase 45 U/L (13-75); Potassium 3.9 mmol/L (3.5-5.1); Protein, Total 7.1 g/dL (6.4-8.2); Sodium Level 140 mmol/L (136-145)
[2022-08-15 20:47] VITALS: BP 119/64; PULSE 99; RESP 16
[2022-08-15 21:20] LABS: Internal QC Validated? YES +Cl - CLEAR BKGD; Pregnancy, Serum, hCG Quali. NEGATIVE Negative
[2022-08-15 22:13] VITALS: BP 128/76; PULSE 80; RESP 18
--- NOTE | 2022-08-15 22:20 | ED.RN ---
IV removed intact, no bleeding. Ambulatory from dept., gait steady.
== END 2022-08-15 22:21 | disposition home or self-care (01) ==
PROVIDERS: Emergency Provider Student in an Organized Health Care Education/Training Program; Visit Provider Student in an Organized Health Care Education/Training Program
DX: R10.9 Unspecified abdominal pain (principal); F31.9 Bipolar disorder, unspecified; E66.01 Morbid (severe) obesity due to excess calories; R11.2 Nausea with vomiting, unspecified; R19.7 Diarrhea, unspecified; F41.9 Anxiety disorder, unspecified; K21.9 Gastro-esophageal reflux disease without esophagitis
CPT/HCPCS: 80053; 80178; 81001; 83690; 84703; 85025; 96361; 96374; 96375; 99283

== ENCOUNTER → 2022-09-19 | Outpatient (CLI) | payer MEDICAID, SELFPAY ==
[2022-09-19 12:30] LABS: Hematocrit 41.1 % (37-47); Hemoglobin 13.6 g/dL (12.0-15.0); Mean Corp Hgb Conc 33.1 g/dL (32-36); Mean Corpuscular Hgb 29.2 pg (27.0-32.0); Mean Corpuscular Volume 88.4 fL (81-99); Platelet Count 337 K/mm3 (150-450); RBC Distribution Width CV 13.3 % (11.6-14.6); Red Blood Count 4.65 M/mm3 (4.2-5.4); White Blood Count 8.5 K/mm3 (4.4-11.0)
--- NOTE | 2022-09-19 12:30 | MRI_ITS ---
MR Enterography Abdomen/Pelvis WO/W Contrast 09/19/2022 1:46 PM COMPARISON: CT 01/24/2022 CLINICAL HISTORY: K50.90 - Crohn''s disease, unspecified, without complications TECHNIQUE: Following oral administration of enteric contrast and administration of glucagon, multiplanar T1 and T2 weighted images along with dynamic post-gadolinium images were obtained through the abdomen and pelvis. 25 cc of IV Clariscan was used. FINDINGS: GI Tract: Marked mucosal hyperenhancement involving multiple short segments of small bowel including the terminal ileum. Difficult to determine any true degree of bowel wall thickening due to underdistention. No stricture, fistula, or obstruction. No drainable fluid collections. Liver: Unremarkable Gallbladder: Unremarkable Spleen: Unremarkable Pancreas: Unremarkable Adrenal Glands: Unremarkable Kidneys: Unremarkable Reproductive: Unremarkable. Bladder: Unremarkable Lymphadenopathy: Absent Ascites: Absent Bones: No suspicious lesions MRI/Enterography Abd/Pel IMPRESSION: Very limited study due to underdistention of bowel. Despite limitations: Marked mucosal hyperenhancement involving multiple short segments of small bowel consistent with acute flare of Crohn''s disease. No stricture, fistula, or obstruction. No drainable fluid collections. Electronically Signed: Toni Champagne MD at 20:39 EDT ,
[2022-09-19 12:47] LABS: Hemoglobin A1c 6.7 % (3.8-5.6)
[2022-09-19 12:55] LABS: Vitamin B12 1606 pg/mL (211-911); Vitamin D,25 Hydroxy 16.1 ng/mL
[2022-09-19 13:02] LABS: AST(SGOT) 94 U/L (15-37); Alanine Aminotransfer ALT/SGPT 199 U/L (13-56); Albumin, Serum 3.7 g/dL (3.2-5.0); Alkaline Phosphatase 75 U/L (45-117); Anion Gap 5 (5-15); BUN 11 mg/dL (7-18); BUN/Creat Ratio 13.4 RATIO (10-20); Calcium,Total 9.5 mg/dL (8.5-10.1); Chloride 108 mmol/L (98-107); Cholesterol 232 mg/dL (200); Creatinine, Serum 0.82 mg/dL (0.55-1.02); EST Glomerular Filtration Rate 90 mL/min (>60); Est Glom Filt Rate - Afr Amer 109 mL/min (>60); Globulin 3.7 g/dL (2.2-4.2); Glucose 94 mg/dL (74-106); High Density Lipoprotein 33 mg/dL; Potassium 4.5 mmol/L (3.5-5.1); Protein, Total 7.4 g/dL (6.4-8.2); Sodium Level 138 mmol/L (136-145); T4 Free Direct 1.12 ng/dL (0.76-1.46); Thyroid Stim Hormone (TSH) 3.75 uIU/mL (0.358-3.74); Triglycerides 215 mg/dL; Very Low Density Lipoprotein 43 mg/dL (5-40)
[2022-09-19 13:09] VITALS: BP 141/77; PULSE 104; RESP 16; O2SAT 100
[2022-09-19 13:10] VITALS: BP 141/77; PULSE 104; RESP 16; O2SAT 100; BMI 47.3
[2022-09-19] MEDS: Glucagon 1 MG/ML Syringe IV (14:08)
[2022-09-19 14:44] VITALS: BP 142/70; PULSE 107; RESP 18; O2SAT 98
== END | disposition home or self-care (01) ==
LOC: MRI 12:08
PROVIDERS: Nurse Practitioner Family; Referring Provider Internal Medicine Gastroenterology; Visit Provider Internal Medicine Gastroenterology
DX: I10 Essential (primary) hypertension (principal); K50.90 Crohn's disease, unspecified, without complications; R73.03 Prediabetes; E56.9 Vitamin deficiency, unspecified; R94.6 Abnormal results of thyroid function studies
CPT/HCPCS: 36415; 74183; 80053; 80061; 82306; 82607; 83036; 84439; 84443; 85027; A9575; A4216; J1610

== ENCOUNTER → 2022-10-03 | Outpatient (CLI) | payer MEDICAID, SELFPAY ==
[2022-10-06 12:37] LABS: HPV Reflexed? NOT INDICATED
== END | disposition home or self-care (01) ==
LOC: LABSPEC 10:28
PROVIDERS: Referring Provider Nurse Practitioner Women's Health; Visit Provider Nurse Practitioner Women's Health
DX: Z12.4 Encounter for screening for malignant neoplasm of cervix (principal)
CPT/HCPCS: 88175; G0145

== ENCOUNTER → 2022-11-07 | Outpatient (CLI) | payer MEDICAID, SELFPAY ==
--- NOTE | 2022-11-07 13:27 | MRI_ITS ---
STUDY: MRI BRAIN WITHOUT CONTRAST REASON FOR EXAM: Female, 27 years old patient with chronic migraine without aura. Throbbing headaches for years. TECHNIQUE: Standardized multiplanar fat and water weighted pulse sequences were obtained. COMPARISON: CT of the head dated July 24, 2020 and MRI of the brain dated December 14, 2021. FINDINGS: Normal size of the ventricles and extra-axial spaces for the patient''s age. Normal white matter tracts of the supratentorial brain. There is no evidence for recent intracranial ischemia or other cause of cytotoxic edema on diffusion weighted imaging (DWI). Normal T2* images of the brain without demonstrated susceptibility artifact. There is no demonstrated hemosiderin stain. Normal bilateral basal ganglia. Normal thalami. There is no extra-axial fluid accumulation. Normal flow voids within the major intracranial circulation suggesting patency by spin echo criteria. Normal sella turcica, pituitary gland, infundibular stalk, optic chiasm and hypothalamus. Normal tectal plate and pineal gland. Normal midbrain, riya and medulla. Normal cerebellum. Normal basal cisterns. Normal bilateral temporal bones. Normal bilateral internal auditory canals. No demonstrated orbital abnormality, within the constraints of a routine brain study. Normal visualized paranasal sinuses. Normal calvarium and skull base. Normal visualized soft tissue structures. Normal visualized upper cervical spine. MRI/Brain without Contrast IMPRESSION: No MR evidence for mass or acute infarct. Electronically Signed: Laurie Cano MD at 4:51 EDT ,
== END | disposition home or self-care (01) ==
LOC: MRI 13:19
PROVIDERS: Referring Provider Psychiatry & Neurology Neurology; Visit Provider Psychiatry & Neurology Neurology
DX: G43.719 Chronic migraine without aura, intractable, without status migrainosus (principal)
CPT/HCPCS: 70551

== ENCOUNTER 2022-11-22 20:14 | Emergency (ER) | payer MEDICAID, SELFPAY ==
[2022-11-22 20:15] VITALS: BP 138/79; PULSE 108; RESP 15; TEMP 36.5; O2SAT 99
[2022-11-22 20:19] VITALS: BMI 44.4
--- NOTE | 2022-11-22 20:26 | ED.RN ---
BLOOD SUGAR CHECKED IN TRIAGE AND NOTED AT 45. ORANGE JUICE AND SNACK PROVIDED.
[2022-11-22 20:41] LABS: Bedside Glucose 45 mg/dL (74-106)
[2022-11-22 21:33] VITALS: BMI 44.4
[2022-11-22 21:34] LABS: Bedside Glucose 73 mg/dL (74-106)
[2022-11-22 22:15] VITALS: BP 133/65; PULSE 66; RESP 18; O2SAT 99
[2022-11-22 22:17] LABS: Anion Gap 5 (5-15); BUN 11 mg/dL (7-18); BUN/Creat Ratio 16.7 RATIO (10-20); Calcium,Total 9.4 mg/dL (8.5-10.1); Chloride 109 mmol/L (98-107); Creatinine, Serum 0.66 mg/dL (0.55-1.02); EST Glomerular Filtration Rate 115 mL/min (>60); Est Glom Filt Rate - Afr Amer 140 mL/min (>60); Glucose 89 mg/dL (74-106); Potassium 3.8 mmol/L (3.5-5.1); Sodium Level 139 mmol/L (136-145)
[2022-11-23 00:02] VITALS: BMI 44.4
--- NOTE | 2022-11-23 00:02 | EX.ED.DYSGE1 ---
HPI History of Present Illness Chief Complaint: Hypoglycemia Informant: patient Onset/Context/Timing Onset: Today Context: Gradual Onset Timing: Continuous Quality: Lightheaded, dizzy Location: Generalized Worsened by: Nothing Relieved by: Nothing Narrative Narrative: Patient presents with hypoglycemia that occurred today. Patient states she felt lightheaded and dizzy. Patient states she checked her blood sugar at home and it was 60. Patient states that she ate some peanut butter cups and rechecked her blood sugar later. Patient states it was 40 at that time. Patient ate something else and then came to the emergency department. Patient's blood sugar when she got here was 73. Patient was feeling somewhat better. Patient was recently started on Victoza and took her first dose today. Patient denies any chest pain or shortness of breath. Patient denies any fevers or chills. Patient does admit to some blurred vision when her blood sugar was low. [facility] Medical History Anxiety Arthritis Autism Back pain Bipolar 1 disorder Bipolar disorder Depression with anxiety Dietary restriction Fatty liver Heartburn History of echocardiogram IBS (irritable bowel syndrome) Migraine headache Migraines Non-smoker PCOS (polycystic ovarian syndrome) Syncope Wears glasses Home Medications lithium carbonate 300 mg capsule 300 mg PO DAILY 04/05/17 [History Last Taken Unknown] ferrous sulfate 325 mg (65 mg iron) tablet (FeroSul) 325 mg PO QODAY 01/24/22 [History Last Taken Unknown] hydroxyzine pamoate 25 mg capsule 25 mg PO TID 01/24/22 [History Last Taken Unknown] lithium carbonate 600 mg capsule 600 mg PO QHS 01/24/22 [History Last Taken Unknown] losartan 50 mg tablet 50 mg PO DAILY 02/28/22 [History Last Taken Unknown] metoclopramide HCl 10 mg tablet (Reglan) 5 mg (1/2 x 10 mg) PO BID nausea and vomiting #28 tabs 06/21/22 [Rx Last Taken Unknown] pantoprazole 40 mg tablet,delayed release 40 mg PO DAILY 08/04/22 [History Last Taken Unknown] fremanezumab-vfrm 225 mg/1.5 mL subcutaneous auto-injector (Ajovy) 225 mg subcut QMONTH 10/03/22 [History Last Taken Unknown] hydrocortisone 1 % topical cream 1 applic topical TID PRN itching #28.4 grams 10/03/22 [Rx Last Taken Unknown] medroxyprogesterone 10 mg tablet 10 mg PO QDAY 10 days #10 tabs 10/03/22 [Rx Last Taken Unknown] budesonide 3 mg capsule,delayed,extended release 9 mg (3 x 3 mg) PO DAILY #90 ea 10/10/22 [Rx Last Taken Unknown] famotidine 40 mg tablet 40 mg PO BID #60 tabs 10/31/22 [Rx Last Taken Unknown] spironolactone 50 mg tablet See Rx Instructions .Route .COMPLEX #60 TABLETS 11/01/22 [Rx Last Taken Unknown] Allergy/AdvReac Type Severity Reaction Status Date / Time metformin Allergy Mild Nausea/Vom/ Verified 11/22/22 20:19 Diarrhea pollen extracts Allergy Hives Verified 11/22/22 20:19 escitalopram [From Lexapro] AdvReac Other Verified 11/22/22 20:19 lactase [From Dairy Aid] AdvReac Upset Verified 11/22/22 20:19 Stomach ondansetron AdvReac Anaphylaxis Verified 11/22/22 20:19 [From Zofran (as hydrochloride)] Family History Mother Uterine cancer Other Asthma Depression Diabetes GERD (gastroesophageal reflux disease) Heart disease Hyperlipidemia Hypertension Surgical History H/O knee surgery H/O spinal fusion History of colonoscopy History of esophagogastroduodenoscopy (EGD) History of tonsillectomy and adenoidectomy Social History household members: none housing: apartment current occupational status: unemployed history of recent travel: No Smoking Status: Never smoker alcohol intake: current alcohol intake frequency: holidays/special occasions only substance use type: does not use what type of physical activity do you participate in: walking frequency: daily seatbelt use: always do you feel safe at home: Yes additional social history: single ROS ROS ED Constitutional Constitutional ED: Denies chills or fever(s) Eyes Eyes: Reports blurry vision and change in vision; Denies diplopia ENT ENT ED: Denies rhinorrhea or sore throat Cardiovascular Cardiovascular: Denies chest pain or palpitations Respiratory/Chest Respiratory/Chest: Reports cough; Denies dyspnea Gastrointestinal Gastrointestinal: Reports nausea and vomiting Genitourinary Genitourinary ED: Denies dysuria or hematuria Musculoskeletal Musculoskeletal: Denies back pain or neck pain Integumentary Denies abscess or rash Neurologic Neurologic: Reports headache(s); Denies weakness Allergic/Immunologic Allergic/Immunologic ED: Denies mouth swelling or urticaria EXAM Physical Exam Const Vital Signs: 11/22/22 20:15 11/22/22 21:47 11/22/22 22:15 Temperature 97.7 F L Temperature Source Temporal Pulse Rate 108 H 66 Respiratory Rate 15 18 Respiratory Effort Normal Respiratory Pattern Normal Blood Pressure 138/79 H 133/65 H Blood Pressure Mean 98 87 Pulse Ox 99 99 Oxygen Delivery Method Room Air Room Air Positive well nourished, well developed and obese General Appearance ED: well developed and NAD Nutritional Appearance: obese HEENT Reports moist mucous membranes Neck supple and no JVD Resp normal respiratory effort and clear to auscultation bilaterally Cardio regular rate, regular rhythm and no murmurs GI normal to inspection, nondistended, normoactive bowel sounds and non-tender Palpation: soft Extremity normal to inspection General Extremety ED: Negative for edema or tenderness General Extremity: Negative for edema Neuro oriented x3, CN's II-XII intact bilaterally and no sensory deficits noted Sensorium / Orientation: alert Motor Exam: strength 5/5 throughout Psych mental status grossly normal Skin no rashes or lesions noted MDM MDM MDM Narrative Medical decision making narrative: Differential diagnosis includes hyperglycemia, electrolyte abnormality, and kidney injury. Basic metabolic profile will be obtained to assess for electrolyte abnormality and kidney injury. Lab Data Labs: Laboratory Results - last 24 hr 11/22/22 11/22/22 11/22/22 20:22 21:16 21:54 Sodium 139 Potassium 3.8 Chloride 109 H Carbon Dioxide 25.0 Anion Gap 5 BUN 11 Creatinine 0.66 Est GFR (MDRD) Af Amer 140 Est GFR (MDRD) Non-Af 115 BUN/Creatinine Ratio 16.7 Glucose 89 Calcium 9.4 POC Glucose 45 L 73 L Treatment and Re-Evaluation :: Patient was given regular diet here. Repeat BGT was 93. Patient was advised of her findings. Patient was instructed to eat a regular diet. Patient was instructed to contact her primary care physician tomorrow for further management of her Victoza. Patient and family understood and were agreeable with the plan. All questions were answered. Discharge Plan Triage Chief Complaint: Hypoglycemia ED Provider: Ozzy Bright Dx/Rx/DC Orders Clinical Impression: Hypoglycemia associated with diabetes, Morbid obesity, Autism Instructions: ED Diabetic Insulin Reaction Prescriptions: No Action Ajovy Autoinjector 225 mg/1.5 mL auto-injector 225 mg subcut QMONTH medroxyprogesterone 10 mg tablet 10 mg PO QDAY 10 Days Qty: 10 2RF Rx Instructions: Take daily X 10 days to induce menses. Repeat every 3 months if no spontaneous menses hydrocortisone 1 % cream 1 applic topical TID PRN (Reason: itching) Qty: 28.4 1RF losartan 50 mg tablet 50 mg PO DAILY lithium carbonate 300 MG capsule 300 mg PO DAILY lithium carbonate 600 mg Capsule 600 mg PO QHS hydroxyzine pamoate 25 mg capsule 25 mg PO TID ferrous sulfate [FeroSul] 325 mg (65 mg iron) tablet 325 mg PO QODAY pantoprazole 40 mg Tablet,Delayed Release (Dr/Ec) 40 mg PO DAILY metoclopramide HCl [Reglan] 10 mg tablet 5 mg PO BID Qty: 28 11RF budesonide 3 mg capsule,delayed,extend.release 9 mg PO DAILY Qty: 90 2RF famotidine 40 mg tablet 40 mg PO BID Qty: 60 2RF spironolactone 50 mg tablet See Rx Instructions .ROUTE .COMPLEX Qty: 60 6RF Dose Instruction: TAKE 1 TABLET BY MOUTH TWICE A DAY Rx Instructions: TAKE 1 TABLET BY MOUTH TWICE A DAY Primary Care Provider: [facility] Frances Trotter Referrals: [facility] Frances Trotter [Primary Care Provider] - 3-5 Days Activity Restrictions/Additional Instructions: Call your primary care physician tomorrow for further instructions on your Victoza. Disposition Disposition: Home, Self Care
[2022-11-29 02:02] LABS: Bedside Glucose 93 mg/dL (74-106)
[2022-11-29 02:02] LABS: Bedside Glucose 102 mg/dL (74-106)
== END 2022-11-23 00:39 | disposition home or self-care (01) ==
PROVIDERS: Emergency Provider Emergency Medicine; Visit Provider Emergency Medicine
DX: E11.649 Type 2 diabetes mellitus with hypoglycemia without coma (principal); F31.9 Bipolar disorder, unspecified; E66.01 Morbid (severe) obesity due to excess calories; F84.0 Autistic disorder; F41.8 Other specified anxiety disorders; K21.9 Gastro-esophageal reflux disease without esophagitis; G43.909 Migraine, unspecified, not intractable, without status migrainosus
CPT/HCPCS: 36415; 80048; 82962; 99282

== ENCOUNTER 2022-12-09 19:30 | Emergency (ER) | payer MEDICAID, SELFPAY ==
[2022-12-09 19:31] VITALS: BP 130/78; PULSE 98; RESP 15; TEMP 36.4; O2SAT 100; BMI 42.9
--- NOTE | 2022-12-09 20:03 | EX.ED.DYSGE1 ---
HPI History of Present Illness Chief Complaint: Nausea/Vomiting/Diarrhea Narrative Narrative: 27-year-old female past medical history of hypertension, on losartan, bipolar disorder, and autism presents with her mother because of syncopal episodes that she is having in during the week. She states that they happen 2-3 times a day. Additionally, last evening she developed nausea, and today developed nausea, vomiting, and diarrhea. She states she had 8 episodes of diarrhea and at least 12 episodes of vomiting. Both were nonbloody. She states that her blood pressure has been all over the place. Sometimes it is high, and sometimes it is low. She denies any abdominal pain but just states that she is nauseated. Mother states that she complained of headaches as well. [facility] Medical History Anxiety Arthritis Autism Back pain Bipolar 1 disorder Bipolar disorder Depression with anxiety Dietary restriction Fatty liver Heartburn History of echocardiogram IBS (irritable bowel syndrome) Migraine headache Migraines Non-smoker PCOS (polycystic ovarian syndrome) Syncope Wears glasses Home Medications lithium carbonate 300 mg capsule 300 mg PO DAILY 04/05/17 [History Last Taken Unknown] ferrous sulfate 325 mg (65 mg iron) tablet (FeroSul) 325 mg PO QODAY 01/24/22 [History Last Taken Unknown] lithium carbonate 600 mg capsule 600 mg PO QHS 01/24/22 [History Last Taken Unknown] losartan 50 mg tablet 50 mg PO DAILY 02/28/22 [History Last Taken Unknown] metoclopramide HCl 10 mg tablet (Reglan) 5 mg (1/2 x 10 mg) PO BID nausea and vomiting #28 tabs 06/21/22 [Rx Last Taken Unknown] pantoprazole 40 mg tablet,delayed release 40 mg PO DAILY 08/04/22 [History Last Taken Unknown] fremanezumab-vfrm 225 mg/1.5 mL subcutaneous auto-injector (Ajovy) 225 mg subcut QMONTH 10/03/22 [History Last Taken Unknown] hydrocortisone 1 % topical cream 1 applic topical TID PRN itching #28.4 grams 10/03/22 [Rx Last Taken Unknown] medroxyprogesterone 10 mg tablet 10 mg PO QDAY 10 days #10 tabs 10/03/22 [Rx Last Taken Unknown] budesonide 3 mg capsule,delayed,extended release 9 mg (3 x 3 mg) PO DAILY #90 ea 10/10/22 [Rx Last Taken Unknown] famotidine 40 mg tablet 40 mg PO BID #60 tabs 10/31/22 [Rx Last Taken Unknown] spironolactone 50 mg tablet See Rx Instructions .Route .COMPLEX #60 TABLETS 11/01/22 [Rx Last Taken Unknown] Allergy/AdvReac Type Severity Reaction Status Date / Time metformin Allergy Mild Nausea/Vom/ Verified 12/09/22 19:35 Diarrhea pollen extracts Allergy Hives Verified 12/09/22 19:35 escitalopram [From Lexapro] AdvReac Other Verified 12/09/22 19:35 lactase [From Dairy Aid] AdvReac Upset Verified 12/09/22 19:35 Stomach ondansetron AdvReac Anaphylaxis Verified 12/09/22 19:35 [From Zofran (as hydrochloride)] Family History Mother Uterine cancer Other Asthma Depression Diabetes GERD (gastroesophageal reflux disease) Heart disease Hyperlipidemia Hypertension Surgical History H/O knee surgery H/O spinal fusion History of colonoscopy History of esophagogastroduodenoscopy (EGD) History of tonsillectomy and adenoidectomy Social History household members: none housing: apartment current occupational status: unemployed history of recent travel: No Smoking Status: Never smoker alcohol intake: current alcohol intake frequency: holidays/special occasions only substance use type: does not use what type of physical activity do you participate in: walking frequency: daily seatbelt use: always do you feel safe at home: Yes additional social history: single ROS ROS ED ROS Narrative Constitutional: Reported fever, no chills. HEENT: No sore throat. No neck pain. No loss of vision. No rhinorrhea. Cardiovascular: No chest pain. No palpitations. No pedal edema. Respiratory: No cough, no shortness of breath. Abdominal: No abdominal pain. Positive nausea, 8 episodes of diarrhea, at least 12 episodes of vomiting, nonbloody. Genitourinary: No dysuria. No hematuria. Musculoskeletal: No myalgias. No arthralgias. Neurologic: Positive headaches. No dizziness. No lightheadedness. Reported syncopal episodes throughout the last week. Skin: No rash. No change in color. Psychiatric: No depression. No anxiety. EXAM Physical Exam Narrative Exam Narrative: Afebrile. Vital signs noted. HEENT: Normocephalic. Atraumatic. PERRL, EOMI. Neck soft and supple. No point tenderness or step off. Cardiovascular: Regular rate and rhythm. No murmurs, rubs, or gallops appreciated. Respiratory: No tachypnea. Lungs clear to auscultation bilaterally. Gastrointestinal: Abdomen soft, nontender, with normoactive bowel sounds. No rebound or guarding. Neurological: Awake. Alert. Nonfocal, nonlateralizing. Skin: No rash. Normal color. No pallor. Musculoskeletal: No pedal edema. Full range of motion extremities. Const Vital Signs: 12/09/22 19:31 12/09/22 20:10 Temperature 97.6 F L 97.8 F Temperature Source Temporal Oral Pulse Rate 98 Respiratory Rate 15 Blood Pressure 130/78 H Blood Pressure Mean 95 Pulse Ox 100 Oxygen Delivery Method Room Air MDM MDM MDM Narrative Medical decision making narrative: The differential diagnosis would be intravascular volume depletion versus transient hypotension versus dehydration. I do feel she probably has more of a gastroenteritis. I do not feel CT imaging is currently indicated as her abdomen is nontender. I will check her labs for dehydration. She was bolused normal saline 1 L intravenously. I will review her prior records, as she has been seen for nausea, vomiting, and diarrhea in the past. She has an allergy to ondansetron so she was given Reglan 5 mg intravenously for symptomatic treatment. I will also check a lipase and a to see why she has had multiple episodes of nausea and vomiting. I reviewed the patient's laboratory work and she has a normal white count of 10.5, hemoglobin normal at 13.4, hematocrit normal at 41.9, platelet count 386. Review of her CMP shows no evidence of dehydration with a normal sodium of 138, potassium normal at 4.3, glucose is appropriately elevated at 91 with an anion gap low at 4. BUN is normal at 13 and creatinine 0.69. LFTs are grossly unremarkable. Serum is negative. Lipase is normal at 50. I have no concern for pancreatitis with negative laboratory work. Urinalysis is negative for ketones, and although she has WBCs 5-10, she is negative for nitrites. I do not feel that antibiotics are indicated and will defer treatment as she is not having dysuria or hematuria. Urine culture will be sent. EKG was also obtained which was interpreted by myself as normal sinus rhythm at 81 bpm without ectopy or acute ST changes. No STEMI. No significant change from EKG dated January 15, 2022. At this point in time, I do not feel IV fluids are indicated. She was given a dose of Reglan and now feels sleepy. There has been no vomiting here in the ED. I do feel that she may have more of a gastroenteritis. As far as her reported syncope is concerned, I do not feel that further work-up is indicated and I do not feel she requires observation. I feel she be discharged to follow-up with her primary care provider. Return instructions to the emergency department were reviewed. She states that she has Reglan at home. Disposition is discharged home in stable condition. History & Record Review Discussion w/independent historian: Patient and Family Additional record(s) reviewed:: Prior ED visit Lab Data Attestation: I reviewed the patient's lab results. Labs: Laboratory Results - last 24 hr 12/09/22 12/09/22 20:08 20:17 WBC 10.5 RBC 4.66 Hgb 13.4 Hct 41.9 MCV 89.9 MCH 28.8 MCHC 32.0 RDW Std Deviation 45.8 H RDW Coeff of Delmy 13.9 Plt Count 386 MPV 8.9 Immature Gran % (Auto) 0.300 Neut % (Auto) 71.2 H Lymph % (Auto) 20.4 [place] % (Auto) 6.9 Eos % (Auto) 0.7 Baso % (Auto) 0.5 Absolute Neuts (auto) 7.5 Absolute Lymphs (auto) 2.14 Nucleated RBC % 0 Sodium 138 Potassium 4.3 Chloride 106 Carbon Dioxide 28.0 Anion Gap 4 L BUN 13 Creatinine 0.69 Estim Creat Clear Calc 120.15 Est GFR (MDRD) Af Amer 132 Est GFR (MDRD) Non-Af 109 BUN/Creatinine Ratio 18.9 Glucose 91 Calcium 9.2 Total Bilirubin 0.70 AST 20 ALT 52 Alkaline Phosphatase 69 Total Protein 7.6 Albumin 3.6 Globulin 4.0 Albumin/Globulin Ratio 0.9 Lipase 50 Serum , Qual NEGATIVE Urine Color Yellow Urine Clarity Sl. Cloudy Urine pH 6.0 Ur Specific Ronan 1.025 Urine Protein 30 H Urine Glucose (UA) Normal Urine Ketones 5 H Urine Occult Blood 10 H Urine Nitrite Negative Urine Bilirubin Negative Urine Urobilinogen Normal Ur Leukocyte Esterase 500 H Urine RBC 0 SEEN Urine WBC 5-10 SEEN Ur Squamous Epith Cells 0 SEEN Urine Bacteria 1+ Urine Mucus 0 SEEN Discharge Plan Triage Chief Complaint: Nausea/Vomiting/Diarrhea ED Provider: Rodolfo Das Dx/Rx/DC Orders Clinical Impression: Nausea vomiting and diarrhea, Syncope Instructions: ED Fainting, Uncertain Cause, ED Vomiting and Diarrhea ... Prescriptions: No Action Ajovy Autoinjector 225 mg/1.5 mL auto-injector 225 mg subcut QMONTH medroxyprogesterone 10 mg tablet 10 mg PO QDAY 10 Days Qty: 10 2RF Rx Instructions: Take daily X 10 days to induce menses. Repeat every 3 months if no spontaneous menses hydrocortisone 1 % cream 1 applic topical TID PRN (Reason: itching) Qty: 28.4 1RF losartan 50 mg tablet 50 mg PO DAILY lithium carbonate 300 MG capsule 300 mg PO DAILY lithium carbonate 600 mg Capsule 600 mg PO QHS ferrous sulfate [FeroSul] 325 mg (65 mg iron) tablet 325 mg PO QODAY pantoprazole 40 mg Tablet,Delayed Release (Dr/Ec) 40 mg PO DAILY metoclopramide HCl [Reglan] 10 mg tablet 5 mg PO BID Qty: 28 11RF budesonide 3 mg capsule,delayed,extend.release 9 mg PO DAILY Qty: 90 2RF famotidine 40 mg tablet 40 mg PO BID Qty: 60 2RF spironolactone 50 mg tablet See Rx Instructions .ROUTE .COMPLEX Qty: 60 6RF Dose Instruction: TAKE 1 TABLET BY MOUTH TWICE A DAY Rx Instructions: TAKE 1 TABLET BY MOUTH TWICE A DAY Primary Care Provider: Frances Clayton Referrals: [facility] Frances Trotter [Primary Care Provider] - 3-5 Days if not improving Activity Restrictions/Additional Instructions: Continue your Reglan as needed. Small amounts of water to keep yourself hydrated. Disposition Disposition: Home, Self Care
[2022-12-09 20:10] VITALS: TEMP 36.6
[2022-12-09 20:15] LABS: Absolute Lymphocyte Count 2.14 X10^3/uL (0.83-4.51); Absolute Neutrophil Count 7.5 X10^3/uL (2.0-7.7); Basophil# 0.05 X10^3/uL; Basophil% 0.5 % (0-1); Eosinophil# 0.07 X10^3/uL; Eosinophils% 0.7 % (0-5); Hematocrit 41.9 % (37-47); Hemoglobin 13.4 g/dL (12.0-15.0); Lymphocyte # 2.14 X10^3/ul (0.83-4.51); Lymphocyte % 20.4 % (19-41); Mean Corpuscular Hgb 28.8 pg (27.0-32.0); Mean Corpuscular Volume 89.9 fL (81-99); Mean Platelet Vol. 8.9 fl (6.2-12.0); Monocyte# 0.72 X10^3/uL; Monocyte% 6.9 % (0-10); NRBC Flagged by Analyzer 0 % (0-5); Neutrophil # 7.49 X10^3/uL (2.7-7.7); Neutrophil % 71.2 % (47-70); Platelet Count 386 K/mm3 (150-450); RBC Distribution Width CV 13.9 % (11.6-14.6); RBC Distribution Width SD 45.8 fl (35.1-43.9); Red Blood Count 4.66 M/mm3 (4.2-5.4); White Blood Count 10.5 K/mm3 (4.4-11.0)
[2022-12-09] MEDS: Metoclopramide 10 MG/2 ML Vial 5 MG IV (20:18)
[2022-12-09 20:25] LABS: Color, Urine Yellow (Yellow); Glucose, Dipstick Normal (Normal); Ketone-Dipstick 5 mg/dl (Negative); Leukocyte Esterase-Dipstick 500 /ul (Negative); Mucous, Urine 0 SEEN /hpf (<or=2+); Nitrite-Dipstick Negative (Negative); Occult Blood-Urine 10 /ul (Negative); Protein-Dipstick 30 mg/dl (Negative); Red Blood Cells-Urine 0 SEEN /hpf (0-5); Specific Gravity, Urine 1.025 (1.002-1.030); Squamous Epithelial Cells - UA 0 SEEN /hpf (5-10); Urine Bilirubin Dipstick Negative (Negative); Urine Clarity Sl. Cloudy (Clear); Urine Urobilinogen Normal (Normal)
[2022-12-09 20:34] LABS: Bacteria 1+ /hpf (None Seen); White Blood Cells 5-10 SEEN /hpf (0-5)
[2022-12-09 20:51] LABS: Internal QC Validated? YES +Cl - CLEAR BKGD; Pregnancy, Serum, hCG Quali. NEGATIVE Negative
[2022-12-09 20:54] LABS: ALB/GLOB Ratio 0.9 RATIO (0.9-2.4); AST(SGOT) 20 U/L (15-37); Alanine Aminotransfer ALT/SGPT 52 U/L (13-56); Albumin, Serum 3.6 g/dL (3.2-5.0); Alkaline Phosphatase 69 U/L (45-117); Anion Gap 4 (5-15); BUN 13 mg/dL (7-18); BUN/Creat Ratio 18.9 RATIO (10-20); Calcium,Total 9.2 mg/dL (8.5-10.1); Chloride 106 mmol/L (98-107); Creatinine, Serum 0.69 mg/dL (0.55-1.02); EST Glomerular Filtration Rate 109 mL/min (>60); Est Glom Filt Rate - Afr Amer 132 mL/min (>60); Estimated Creatinine Clearance 120.15 ml/min; Glucose 91 mg/dL (74-106); Lipase 50 U/L (13-75); Potassium 4.3 mmol/L (3.5-5.1); Protein, Total 7.6 g/dL (6.4-8.2); Sodium Level 138 mmol/L (136-145)
== END 2022-12-09 22:00 | disposition home or self-care (01) ==
PROVIDERS: Emergency Provider Emergency Medicine; Visit Provider Emergency Medicine
DX: R11.2 Nausea with vomiting, unspecified (principal); F31.9 Bipolar disorder, unspecified; R19.7 Diarrhea, unspecified; R55 Syncope and collapse; I10 Essential (primary) hypertension; Z79.899 Other long term (current) drug therapy; K21.9 Gastro-esophageal reflux disease without esophagitis; G43.909 Migraine, unspecified, not intractable, without status migrainosus
CPT/HCPCS: 80053; 81001; 83690; 84703; 85025; 87086; 87088; 93005; 96374; 99282; A4216

== ENCOUNTER → 2022-12-12 | Outpatient (CLI) | payer MEDICAID, SELFPAY ==
[2022-12-12 10:30] LABS: Insulin 80.9 mU/L (2.6-37.6)
[2022-12-12 10:39] LABS: AST(SGOT) 21 U/L (15-37); Alanine Aminotransfer ALT/SGPT 54 U/L (13-56); Albumin, Serum 3.7 g/dL (3.2-5.0); Alkaline Phosphatase 74 U/L (45-117); Anion Gap 7 (5-15); BUN 10 mg/dL (7-18); BUN/Creat Ratio 12.5 RATIO (10-20); Calcium,Total 9.5 mg/dL (8.5-10.1); Chloride 105 mmol/L (98-107); EST Glomerular Filtration Rate 92 mL/min (>60); Est Glom Filt Rate - Afr Amer 111 mL/min (>60); Globulin 3.8 g/dL (2.2-4.2); Glucose 96 mg/dL (74-106); Lipase 32 U/L (13-75); Potassium 4.4 mmol/L (3.5-5.1); Protein, Total 7.5 g/dL (6.4-8.2); Sodium Level 140 mmol/L (136-145)
== END | disposition home or self-care (01) ==
LOC: LAB 09:14
DX: Z51.81 Encounter for therapeutic drug level monitoring (principal); E11.9 Type 2 diabetes mellitus without complications; A08.4 Viral intestinal infection, unspecified
CPT/HCPCS: 36415; 80053; 80178; 83525; 83690

== ENCOUNTER 2022-12-18 12:27 | Observation (INO) | payer MEDICAID, SELFPAY ==
[2022-12-18 12:28] VITALS: BP 134/73; PULSE 109; RESP 16; TEMP 36.2; O2SAT 100
--- NOTE | 2022-12-18 13:23 | EKG12_ITS ---
Test Reason : SYNCOPE/DIZZY Blood Pressure : / mmHG Vent. Rate : 089 BPM Atrial Rate : 089 BPM P-R Int : 164 ms QRS Dur : 080 ms QT Int : 366 ms P-R-T Axes : 046 002 005 degrees QTc Int : 445 ms Normal sinus rhythm Minimal voltage criteria for LVH, may be normal variant ( R in aVL ) Borderline ECG Confirmed by RELL VARGAS, FOZIA ([id number]), graphics editor NAILA VILLANUEVA ([id number]) on 12/20/2022 6:49:44 AM Referred By: Confirmed By:FOZIA ZACARIAS MD
[2022-12-18 14:30] VITALS: BP 112/67; BP 127/78; BP 130/80; PULSE 111; PULSE 78; PULSE 90
--- NOTE | 2022-12-18 14:37 | EDS_ITS ---
<Statement entered by Sarah Purdy MD - 12/18/22 18:00> I have personally performed a face to face assessment of the patient and have reviewed the SHARON Note. Patient presents with frequent dizzy episodes and syncope. Patient states that she has had lightheaded and dizzy episodes for the last several days and since Sunday has had multiple episodes of syncope. She states she will feel like her heart starts to race. She will wake up on the floor with a headache. She is here with a income tax expert who has seen her have some dizzy episodes but has not witnessed any syncopal episodes. Patient sitting upright in bed no acute distress. Head and neck examination unremarkable with no external sign of trauma. Heart is regular rate and rhythm. Lung sounds are clear. Chest wall examination reveals multiple scabbed wounds over her chest. There is one particular lesion on the left breast with surrounding erythema concerning for cellulitis. Abdomen is soft nontender. Neuro exam reveals no focal neurologic deficits. Lab work is unremarkable. Orthostatic vital signs are negative, however patient states she did feel dizzy when she stood up. She is given IV fluids here. With patient having multiple syncopal episodes and having palpitations I did recommend observation overnight. Case discussed with hospitalist. HPI History of Present Illness Chief Complaint: Syncope Narrative Narrative: Patient is a 27-year-old female with history of morbid obesity, autism, bipolar, diabetes, hyperlipidemia presents the emergency department with ongoing dizziness, near syncopal/syncopal episodes. Patient was seen here December 09, 2022 for the same. At that time, patient nausea vomiting diarrhea. Patient states that she is continue to have dizzy spells as well as having episodes of syncope. She denies any injury. She complains of intermittent headache. She denies any chest pain or shortness of breath. Denies any recent surgeries, denies any history of blood clots in the legs or lungs. [facility] Medical History Anxiety Arthritis Autism Back pain Bipolar 1 disorder Bipolar disorder Depression with anxiety Dietary restriction Fatty liver Heartburn History of echocardiogram IBS (irritable bowel syndrome) Migraine headache Migraines Non-smoker PCOS (polycystic ovarian syndrome) Syncope Wears glasses Home Medications lithium carbonate 300 mg capsule 300 mg PO BID 04/05/17 [History Last Taken 12/18/22] ferrous sulfate 325 mg (65 mg iron) tablet (FeroSul) 325 mg PO QODAY 01/24/22 [History Last Taken 12/16/22] lithium carbonate 600 mg capsule 600 mg PO QHS 01/24/22 [History Last Taken 12/17/22] losartan 50 mg tablet 50 mg PO DAILY 02/28/22 [History Last Taken 12/18/22] metoclopramide HCl 10 mg tablet (Reglan) 5 mg (1/2 x 10 mg) PO BID nausea and vomiting #28 tabs 06/21/22 [Rx Last Taken 12/18/22] pantoprazole 40 mg tablet,delayed release 40 mg PO DAILY 08/04/22 [History Last Taken 12/17/22] fremanezumab-vfrm 225 mg/1.5 mL subcutaneous auto-injector (Ajovy) 225 mg subcut QMONTH 10/03/22 [History Last Taken 11/21/22] budesonide 3 mg capsule,delayed,extended release 9 mg (3 x 3 mg) PO DAILY #90 ea 10/10/22 [Rx Last Taken Unknown] famotidine 40 mg tablet 40 mg PO BID #60 tabs 10/31/22 [Rx Last Taken 12/18/22] spironolactone 50 mg tablet See Rx Instructions .Route .COMPLEX #60 TABLETS 11/01/22 [Rx Last Taken 12/18/22] aripiprazole lauroxil 441 mg/1.6 mL suspension, ext.rel. IM syringe (Aristada) 441 mg IM .COMPLEX 12/18/22 [History Last Taken 12/18/22] cholecalciferol (vitamin D3) 25 mcg (1,000 unit) tablet (Vitamin D3) 25 mcg PO DAILY 12/18/22 [History Last Taken 12/17/22] imipramine HCl 25 mg tablet 25 mg PO DAILY 12/18/22 [History Last Taken 11/20 11/11] Allergy/AdvReac Type Severity Reaction Status Date / Time metformin Allergy Mild Nausea/Vom/ Verified 12/18/22 12:29 Diarrhea pollen extracts Allergy Hives Verified 12/18/22 12:29 escitalopram [From Lexapro] AdvReac Other Verified 12/18/22 12:29 lactase [From Dairy Aid] AdvReac Upset Verified 12/18/22 12:29 Stomach ondansetron AdvReac Anaphylaxis Verified 12/18/22 12:29 [From Zofran (as hydrochloride)] Family History Mother Uterine cancer Other Asthma Depression Diabetes GERD (gastroesophageal reflux disease) Heart disease Hyperlipidemia Hypertension Surgical History H/O knee surgery H/O spinal fusion History of colonoscopy History of esophagogastroduodenoscopy (EGD) History of tonsillectomy and adenoidectomy Social History household members: none housing: apartment current occupational status: unemployed history of recent travel: No Smoking Status: Never smoker alcohol intake: current alcohol intake frequency: holidays/special occasions only substance use type: does not use what type of physical activity do you participate in: walking frequency: daily seatbelt use: always do you feel safe at home: Yes additional social history: single ROS ROS ED ROS Narrative Constitutional: Negative for fever, chills, weight loss, weakness Eyes: Negative for vision loss, vision change, double vision ENT: Negative for any sore throat, ear pain, congestion Cardiovascular: Negative for any chest pain, tightness, palpitations Respiratory: Negative for any cough, sputum production, hemoptysis, dyspnea, dyspnea on exertion, orthopnea Gastrointestinal: Negative for any abdominal pain, nausea, vomiting, diarrhea, constipation, blood in stool, blood in vomit : Negative for any urinary frequency, dysuria, retention, blood in urine Muscle skeletal: Negative for any muscle joint pain, stiffness, myalgias, arthralgias, neck pain, back pain Neurological: Negative for any numbness or tingling. Positive for headache, dizziness, and syncopal episodes Skin: Negative for any rashes, lumps, itching, abrasions, lacerations Psychiatric: Negative for any depression, anxiety, stress, suicidal ideation, homicidal ideation Hematologic: Negative for any easy bruising, excessive bruising, easy bleeding Allergies: Negative for any eczema, hives, rash EXAM Physical Exam Narrative Exam Narrative: Vital signs reviewed. Patient is alert and orient x4. Patient is no obvious distress. HEET: Head normocephalic atraumatic, TMs clear bilaterally. Posterior pharynx is clear, moist mucous membranes. Nares clear bilaterally. Neck: Supple with no lymphadenopathy or tenderness. No signs of meningismus, negative jolt sign. Cardiac: Regular rate and rhythm no murmurs gallops or rubs, equal peripheral pulses bilaterally. Respiratory: Lungs clear to auscultation bilaterally. No chest tenderness. Patient does have areas of cellulitis with superficial lesions from what appears to be itching to her left upper chest. Is consistent with cellulitis. Abdomen: Soft, nontender, nondistended. No abdominal bruit or pulsatile masses. No hepatosplenomegaly Extremities: No peripheral edema, no signs of gross trauma or deformity. Active full range of motion of all extremities. Neuro: Cranial nerves II through XII intact, no focal neurological deficits. NIH stroke score 0. Skin: Clean dry and intact with no rash, purpura, petechiae, vesicles or pustules. Backs/flank: No CVA tenderness, no midline spinal tenderness, no deformity. Psych: Normal mood and affect. No SI, HI or acute psychosis. Const Vital Signs: 12/18/22 12:28 12/18/22 14:30 Temperature 97.1 F L Temperature Source Temporal Pulse Rate 109 H Pulse Rate [Lying] 78 Pulse Rate [Sitting (for 1 minute prior to obtaining)] 90 Pulse Rate [Standing (for 1 minute prior to obtaining)] 111 H Respiratory Rate 16 Blood Pressure 134/73 H Blood Pressure [Lying] 112/67 Blood Pressure [Sitting (for 1 minute prior to obtaining)] 130/80 H Blood Pressure [Standing (for 1 minute prior to obtaining)] 127/78 H Blood Pressure Mean 93 Blood Pressure Mean [Lying] 82 Blood Pressure Mean [Sitting (for 1 minute prior to obtaining)] 96 Blood Pressure Mean [Standing (for 1 minute prior to obtaining)] 94 Pulse Ox 100 Oxygen Delivery Method Room Air Positive obese Nutritional Appearance: obese MDM MDM Lab Data Labs: Laboratory Results - last 24 hr 12/18/22 15:10 WBC 11.2 H RBC 4.50 Hgb 12.9 Hct 41.0 MCV 91.1 MCH 28.7 MCHC 31.5 L RDW Std Deviation 46.5 H RDW Coeff of Delmy 13.7 Plt Count 404 MPV 9.0 Immature Gran % (Auto) 0.400 Neut % (Auto) 73.9 H Lymph % (Auto) 18.1 L [place] % (Auto) 6.4 Eos % (Auto) 0.7 Baso % (Auto) 0.5 Absolute Neuts (auto) 8.3 H Absolute Lymphs (auto) 2.03 Nucleated RBC % 0 D-Dimer Quant (PE/DVT) < 0.27 L Sodium 140 Potassium 4.1 Chloride 108 H Carbon Dioxide 29.0 Anion Gap 3 L BUN 12 Creatinine 0.67 Est GFR (MDRD) Af Amer 137 Est GFR (MDRD) Non-Af 113 BUN/Creatinine Ratio 17.9 Glucose 107 H Calcium 9.2 Troponin I High Sens 3 Radiography Diagnostic Testing: Clinical Impression(s) from Imaging Studies Brain CT 12/18/22 14:38 IMPRESSION: Normal unenhanced CT scan of the brain. Electronically Signed: Dante Espitia MD at 15:40 EDT , Chest X-Ray 12/18/22 15:30 IMPRESSION: No acute abnormality is seen. Electronically Signed: Dante Espitia MD at 15:43 EDT , EKG Normal sinus rhythm, rate of 89 beats per: Attestation: I personally reviewed and interpreted this EKG as follows: Interpretation: Sinus Rhythm Comments: Normal sinus rhythm, rate of 89 bpm, MA 164 ms, QRS duration 80 ms, no acute ST elevation, no acute infarct noted Treatment and Re-Evaluation :: Patient is no obvious distress, vital signs are stable, patient looks nontoxic. Presenting to the emergency department for complaints of ongoing dizziness, syncopal, near syncopal episodes. Differential diagnosis includes hypovolemia, migraine headache, cardiac arrhythmia. Patient will receive orthostatic vital signs, this is prior to receiving 1 L normal saline. Patient received basic laboratory values including a cardiac work-up. EKG. Patient will also receive a CT scan of the brain. I will perform a D-dimer concerning for any elevation concerning for blood clot. Patient CT scan of the brain was unremarkable, chest x-ray was unremarkable. Patient's laboratory values showed a slight leukocytosis white blood count 11.2. Patient's chemistries were unremarkable, D-dimer was negative. Upon further investigation of the patient's skin, patient does have some cellulitic area to the left chest. Patient was started on oral Keflex here. She shows no signs of deep tissue infection, septicemia. Secondary to the unexplained syncope, patient will need to be brought into the hospital under observation. I spoke with the hospitalist, patient will be admitted. Discharge Plan Triage Chief Complaint: Syncope ED Midlevel Provider: Presley Ibarra ED Provider: Sarah Purdy Dx/Rx/DC Orders Clinical Impression: Cellulitis, Syncope Prescriptions: No Action Ajovy Autoinjector 225 mg/1.5 mL auto-injector 225 mg subcut QMONTH Patient Comments: PT STATES USES BETWEEN FIRST AND FIFTH OF EACH MONTH losartan 50 mg tablet 50 mg PO DAILY lithium carbonate 300 MG capsule 300 mg PO BID lithium carbonate 600 mg Capsule 600 mg PO QHS ferrous sulfate [FeroSul] 325 mg (65 mg iron) tablet 325 mg PO QODAY pantoprazole 40 mg Tablet,Delayed Release (Dr/Ec) 40 mg PO DAILY imipramine HCl 25 mg tablet 25 mg PO DAILY cholecalciferol (vitamin D3) [Vitamin D3] 25 mcg (1,000 unit) tablet 25 mcg PO DAILY Aristada 441 mg/1.6 mL suspension,extended rel syring 441 mg IM .COMPLEX Rx Instructions: 441 mg intramuscularly Q28D; metoclopramide HCl [Reglan] 10 mg tablet 5 mg PO BID Qty: 28 11RF budesonide 3 mg capsule,delayed,extend.release 9 mg PO DAILY Qty: 90 2RF Patient Comments: PT STATES SHE IS UNSURE IF SHE IS STILL TAKING THIS MED famotidine 40 mg tablet 40 mg PO BID Qty: 60 2RF spironolactone 50 mg tablet See Rx Instructions .ROUTE .COMPLEX Qty: 60 6RF Dose Instruction: TAKE 1 TABLET BY MOUTH TWICE A DAY Rx Instructions: TAKE 1 TABLET BY MOUTH TWICE A DAY Primary Care Provider: [facility] Frances Trotter Referrals: [facility] Frances Trotter [Primary Care Provider] - Disposition Disposition: Acute Care Hospital [facility]
--- NOTE | 2022-12-18 14:38 | CT_ITS ---
STUDY: CT BRAIN WITHOUT CONTRAST REASON FOR EXAM: Female, 27 years old. Syncope RADIATION DOSAGE (If Supplied By Facility): CTDIvol = ( 47.06 ) mGy, DLP = ( 855.03 ) mGycm TECHNIQUE: Transaxial CT imaging of the brain was performed without administration of intravenous contrast material. Individualized dose optimization techniques were used for this CT. COMPARISON: Comparison is made with prior study dated July 24, 2020. FINDINGS: Normal soft tissue structures. Normal calvarium. Normal size ventricles and extra-axial spaces for the patient''s age. Normal white matter tracts of the cerebral hemispheres. Normal basal ganglia and thalami. Normal brainstem. Normal cerebellum. There is no intracranial hemorrhage. There are no findings of an acute ischemic infarction. Normal visualized paranasal sinuses. CT/Brain/Head without Contrast IMPRESSION: Normal unenhanced CT scan of the brain. Electronically Signed: Dante Espitia MD at 15:40 EDT ,
[2022-12-18] MEDS: 0.9% Normal Saline (1000mL) 1,000 ML 999 ML IV (15:16)
[2022-12-18 15:22] LABS: Absolute Lymphocyte Count 2.03 X10^3/uL (0.83-4.51); Absolute Neutrophil Count 8.3 X10^3/uL (2.0-7.7); Basophil# 0.06 X10^3/uL; Basophil% 0.5 % (0-1); Eosinophil# 0.08 X10^3/uL; Eosinophils% 0.7 % (0-5); Hemoglobin 12.9 g/dL (12.0-15.0); Lymphocyte # 2.03 X10^3/ul (0.83-4.51); Lymphocyte % 18.1 % (19-41); Mean Corp Hgb Conc 31.5 g/dL (32-36); Mean Corpuscular Hgb 28.7 pg (27.0-32.0); Mean Corpuscular Volume 91.1 fL (81-99); Monocyte# 0.72 X10^3/uL; Monocyte% 6.4 % (0-10); NRBC Flagged by Analyzer 0 % (0-5); Neutrophil % 73.9 % (47-70); Platelet Count 404 K/mm3 (150-450); RBC Distribution Width CV 13.7 % (11.6-14.6); RBC Distribution Width SD 46.5 fl (35.1-43.9); White Blood Count 11.2 K/mm3 (4.4-11.0)
--- NOTE | 2022-12-18 15:30 | RAD_ITS ---
STUDY: X-RAY CHEST REASON FOR EXAM: Female, 27 years old. Syncope TECHNIQUE: PA and lateral views of the chest. COMPARISON: Comparison is made with prior study dated January 15, 2022. FINDINGS: The lungs are clear and expanded. There is no demonstrated pleural abnormality. Normal size heart. Normal mediastinum and daysi. Normal visualized pulmonary arteries. Normal visualized aortic arch and descending thoracic aorta. Stable sclerotic fixation of the thoracic and lumbar spines. Normal visualized ribs, clavicles, and shoulders. There is no demonstrated abnormality of the visualized soft tissue structures of the upper abdomen. RAD/Chest PA and Lateral IMPRESSION: No acute abnormality is seen. Electronically Signed: Dante Espitia MD at 15:43 EDT ,
[2022-12-18 15:41] LABS: Anion Gap 3 (5-15); BUN 12 mg/dL (7-18); BUN/Creat Ratio 17.9 RATIO (10-20); Calcium,Total 9.2 mg/dL (8.5-10.1); Chloride 108 mmol/L (98-107); Creatinine, Serum 0.67 mg/dL (0.55-1.02); EST Glomerular Filtration Rate 113 mL/min (>60); Est Glom Filt Rate - Afr Amer 137 mL/min (>60); Glucose 107 mg/dL (74-106); Potassium 4.1 mmol/L (3.5-5.1); Sodium Level 140 mmol/L (136-145); Troponin-I HS 3 pg/mL (3.0-54.0)
[2022-12-18 15:47] LABS: D-Dimer Quantitative (DVT/PE) < 0.27 FEU/ug/m (0.27-0.49)
[2022-12-18] MEDS: Cephalexin 250 MG Capsule 500 MG PO (16:57)
[2022-12-18 17:02] VITALS: BP 130/88; BP 130/89; PULSE 93; RESP 17; O2SAT 99
[2022-12-18 17:03] VITALS: BMI 47.5
[2022-12-18 19:24] VITALS: BMI 45.9
[2022-12-18 19:33] VITALS: BP 124/62; PULSE 100; RESP 18; TEMP 36.8; O2SAT 100
--- NOTE | 2022-12-18 19:46 | HP.PCM.HOS_ITS ---
HPI - General General Date of Admission: 12/18/22 Date of Service: 12/18/22 Chief Complaint: Lightheadedness, syncope HPI Narrative DIAZ DOUGLAS, is a 27 F who presents to the emergency room at [facility] with complaints of multiple episodes of syncope over the past week, patient states at least 12 episodes, she is a poor informant and cannot tell me when these episodes started exactly, she states that she usually does not pass out in a chair but gets lightheaded. Patient has a history of autism and bipolar disorder. Current medical problems include hypertension, polycystic ovarian syndrome, and migraine cephalgia. I talked to her primary caregiver at [facility] today, she was placed on medication for polycystic ovarian syndrome but her blood sugar went too low and they had to take her off medicatio n. Her serum insulin level was also low according to her primary caregiver at [facility]. The emergency room physician's neurosurgical physician assistant told me today that the patient's caregiver at home does not witness any syncopal episodes but she has been dizzy. Patient tells me that a friend of hers has witnessed the syncope episodes. Work-up in ER included an EKG which showed normal sinus rhythm without ischemic changes, patient had a CT of the brain without contrast that was unremarkable, white blood cell count was slightly elevated 11.2, patient's CHEM panel was unremarkable. Patient's lithium level was therapeutic. Patient will be placed into observation status on PCU, she will be monitored on telemetry and will be seen by PT and OT, she will have an echocardiogram performed tomorrow. I am suspect that due to the patient's autism and bipolar disorder, I am not receiving a good narrative as to what is happening. [facility] Medical History (Updated 12/18/22 @ 19:31 by Trina Cole) Anxiety Arthritis Autism Back pain Bipolar 1 disorder Bipolar disorder Cirrhosis Depression Depression with anxiety Diabetes Dietary restriction Fatty liver GERD (gastroesophageal reflux disease) Heartburn History of echocardiogram IBS (irritable bowel syndrome) Irregular heart beat Kidney stones Migraine headache Migraines Non-smoker PCOS (polycystic ovarian syndrome) Syncope Wears glasses Home Medications lithium carbonate 300 mg capsule 300 mg PO BID 04/05/17 [History Last Taken 12/18/22] ferrous sulfate 325 mg (65 mg iron) tablet (FeroSul) 325 mg PO QODAY 01/24/22 [History Last Taken 12/16/22] lithium carbonate 600 mg capsule 600 mg PO QHS 01/24/22 [History Last Taken 12/17/22] losartan 50 mg tablet 50 mg PO DAILY 02/28/22 [History Last Taken 12/18/22] metoclopramide HCl 10 mg tablet (Reglan) 5 mg (1/2 x 10 mg) PO BID nausea and vomiting #28 tabs 06/21/22 [Rx Last Taken 12/18/22] pantoprazole 40 mg tablet,delayed release 40 mg PO DAILY 08/04/22 [History Last Taken 12/17/22] fremanezumab-vfrm 225 mg/1.5 mL subcutaneous auto-injector (Ajovy) 225 mg subcut QMONTH 10/03/22 [History Last Taken 11/21/22] budesonide 3 mg capsule,delayed,extended release 9 mg (3 x 3 mg) PO DAILY #90 ea 10/10/22 [Rx Last Taken Unknown] famotidine 40 mg tablet 40 mg PO BID #60 tabs 10/31/22 [Rx Last Taken 12/18/22] spironolactone 50 mg tablet See Rx Instructions .Route .COMPLEX #60 TABLETS 11/01/22 [Rx Last Taken 12/18/22] aripiprazole lauroxil 441 mg/1.6 mL suspension, ext.rel. IM syringe ([place]) 441 mg IM .COMPLEX 12/18/22 [History Last Taken 12/18/22] cholecalciferol (vitamin D3) 25 mcg (1,000 unit) tablet (Vitamin D3) 25 mcg PO DAILY 12/18/22 [History Last Taken 12/17/22] imipramine HCl 25 mg tablet 25 mg PO DAILY 12/18/22 [History Last Taken 12/17/22] Allergy/AdvReac Type Severity Reaction Status Date / Time metformin Allergy Mild Nausea/Vom/ Verified 12/18/22 19:33 Diarrhea pollen extracts Allergy Hives Verified 12/18/22 19:33 escitalopram [From Lexapro] AdvReac Other Verified 12/18/22 19:33 lactase [From Dairy Aid] AdvReac Upset Verified 12/18/22 19:33 Stomach ondansetron AdvReac Anaphylaxis Verified 12/18/22 19:33 [From Zofran (as hydrochloride)] Family History Mother Uterine cancer Other Asthma Depression Diabetes GERD (gastroesophageal reflux disease) Heart disease Hyperlipidemia Hypertension Surgical History H/O knee surgery H/O spinal fusion History of colonoscopy History of esophagogastroduodenoscopy (EGD) History of tonsillectomy and adenoidectomy Social History household members: none housing: apartment current occupational status: unemployed history of recent travel: No Smoking Status: Never smoker alcohol intake: current alcohol intake frequency: holidays/special occasions only substance use type: does not use what type of physical activity do you participate in: walking frequency: daily seatbelt use: always do you feel safe at home: Yes additional social history: single ROS ROS Narrative Due to the patient's psychiatric problems, a reliable review of systems was not able to be obtained Vital Signs Vital Signs Vital Signs: 12/18/22 12:28 12/18/22 14:30 12/18/22 17:00 Temperature 97.1 F L Temperature Source Temporal Pulse Rate 109 H Pulse Rate [Lying] 78 Pulse Rate [Sitting (for 1 minute prior to obtaining)] 90 Pulse Rate [Standing (for 1 minute prior to obtaining)] 111 H Respiratory Rate 16 Respiratory Effort Respiratory Pattern Blood Pressure 134/73 H Blood Pressure [Lying] 112/67 Blood Pressure [Sitting (for 1 minute prior to obtaining)] 130/80 H Blood Pressure [Standing (for 1 minute prior to obtaining)] 127/78 H Blood Pressure Mean 93 Blood Pressure Mean [Lying] 82 Blood Pressure Mean [Sitting (for 1 minute prior to obtaining)] 96 Blood Pressure Mean [Standing (for 1 minute prior to obtaining)] 94 Blood Pressure Source Blood Pressure Position Blood Pressure Location Pulse Ox 100 Oxygen Delivery Method Room Air Room Air 12/18/22 17:00 12/18/22 17:02 12/18/22 17:02 Temperature Temperature Source Pulse Rate 93 93 Pulse Rate [Lying] Pulse Rate [Sitting (for 1 minute prior to obtaining)] Pulse Rate [Standing (for 1 minute prior to obtaining)] Respiratory Rate 17 17 Respiratory Effort Normal Non-Labored Respiratory Pattern Normal Blood Pressure 130/88 H 130/89 H Blood Pressure [Lying] Blood Pressure [Sitting (for 1 minute prior to obtaining)] Blood Pressure [Standing (for 1 minute prior to obtaining)] Blood Pressure Mean 102 102 Blood Pressure Mean [Lying] Blood Pressure Mean [Sitting (for 1 minute prior to obtaining)] Blood Pressure Mean [Standing (for 1 minute prior to obtaining)] Blood Pressure Source Blood Pressure Position Blood Pressure Location Pulse Ox 99 99 Oxygen Delivery Method Room Air 12/18/22 19:33 Temperature 98.3 F Temperature Source Oral Pulse Rate 100 Pulse Rate [Lying] Pulse Rate [Sitting (for 1 minute prior to obtaining)] Pulse Rate [Standing (for 1 minute prior to obtaining)] Respiratory Rate 18 Respiratory Effort Respiratory Pattern Blood Pressure 124/62 H Blood Pressure [Lying] Blood Pressure [Sitting (for 1 minute prior to obtaining)] Blood Pressure [Standing (for 1 minute prior to obtaining)] Blood Pressure Mean 82 Blood Pressure Mean [Lying] Blood Pressure Mean [Sitting (for 1 minute prior to obtaining)] Blood Pressure Mean [Standing (for 1 minute prior to obtaining)] Blood Pressure Source Monitor Blood Pressure Position Semi-Fowlers Blood Pressure Location Left Arm Pulse Ox 100 Oxygen Delivery Method Room Air Weight Weight: 129.1 kg Body Mass Index (BMI) 45.9 Physical Exam Const alert and no apparent distress Constitutional Narrative: Patient is morbidly obese General Appearance: cooperative, well kempt and well developed Orientation / Consciousness: awake, oriented to person and oriented to place HEENT normocephalic, head/scalp atraumatic, hearing grossly normal bilaterally and moist oral mucous membranes Eyes PERRL, EOMs intact bilaterally and conjunctivae normal Neck supple, no JVD, thyroid normal and no carotid bruits General: trachea midline Resp normal respiratory effort, no retractions, no use of accessory muscles and clear to auscultation bilaterally Auscultation: Negative for rales, rhonchi or wheezes Cardio regular rate, regular rhythm, S1 normal heart sound, S2 normal heart sound, no murmurs, no rub and no gallops GI normal to inspection, nondistended, normoactive bowel sounds, soft to palpation, non-tender and non-distended Extremity no clubbing, cyanosis or edema Skin Skin Narrative: There is an eschar noted over the patient's anterior left upper breast, this eschar is approximately 2 to 3 cm in diameter by 3 cm in diameter, there is no purulent drainage noted from the area, there is also a small break in the skin below this area that is approximately half a centimeter in diameter, this area appears to be open but there does not appear to be any drainage from the area Neuro CN's II-XII intact bilaterally, moves all extremities, no focal motor deficits and no sensory deficits noted Sensorium / Orientation: awake, alert, oriented to person and oriented to place Speech: speech normal Psych affect normal Results Lab / Micro Data 12/18/22 15:10 12/18/22 15:10 Labs: Laboratory Results - last 24 hr 12/18/22 15:10: WBC 11.2 H, RBC 4.50, Hgb 12.9, Hct 41.0, MCV 91.1, MCH 28.7, MCHC 31.5 L, RDW Std Deviation 46.5 H, RDW Coeff of Delmy 13.7, Plt Count 404, MPV 9.0, Immature Gran % (Auto) 0.400, Neut % (Auto) 73.9 H, Lymph % (Auto) 18.1 L, [place] % (Auto) 6.4, Eos % (Auto) 0.7, Baso % (Auto) 0.5, Absolute Neuts (auto) 8.3 H, Absolute Lymphs (auto) 2.03, Nucleated RBC % 0, D-Dimer Quant (PE/DVT) < 0.27 L, Sodium 140, Potassium 4.1, Chloride 108 H, Carbon Dioxide 29.0, Anion Gap 3 L, BUN 12, Creatinine 0.67, Est GFR (MDRD) Af Amer 137, Est GFR (MDRD) Non-Af 113, BUN/Creatinine Ratio 17.9, Glucose 107 H, Calcium 9.2, Troponin I High Sens 3 12/18/22 16:43: [place] 0.[address] 12/18/22 14:38 IMPRESSION: Normal unenhanced CT scan of the brain. Electronically Signed: Dante Espitia MD at 15:40 EDT , Chest X-Ray 12/18/22 15:30 IMPRESSION: No acute abnormality is seen. Electronically Signed: Dante Espitia MD at 15:43 EDT , Assessment & Plan Assessment/Plan (1) Syncope: PLAN: Plan 1. Syncope and presyncope-Per patient-etiology unclear, again patient's narrative may be suspect, patient was placed in observation status on PCU, she will be monitored with telemetry, echocardiogram will be performed tomorrow, she will be seen by PT and OT #2 essential hypertension-patient's blood pressure medication will be held at the present time-blood pressure will be monitored #3 superficial skin trauma to the left upper breast area-I do not feel that this area is infected I do not think the patient needs to be on antibiotics. #4 chronic migraines-patient is on a once a month injection for migraines #5 bipolar disorder/autism-patient appears to be on Depo Abilify, she will remain on lithium at this time #6 polycystic ovarian syndrome-patient is on spironolactone, I have elected to hold this at this time Patient is on Reglan at this time, I have elected not to continue his medication Total clinical time spent addressing the patient's medical issues, reviewing all of her data, and collaborating with patient's care team: 40 minutes Charges/Coding Visit Charges Inpatient E&M: 50933 Init Hosp L1
[2022-12-18 21:42] VITALS: BP 128/63; PULSE 95; RESP 16; TEMP 36.6; O2SAT 99
[2022-12-18] MEDS: Lithium Carbonate 300mg Capsule 600 MG PO (21:49)
[2022-12-19 02:32] VITALS: BP 138/80; PULSE 101; RESP 18; TEMP 36.8; O2SAT 100
--- NOTE | 2022-12-19 05:55 | ECHOCS_ITS ---
Reason For Study: SYNCOPE/NEAR SYNCOPE Procedure This was a 2D Doppler, Color Flow transthoracic echocardiogram. The study was technically difficult. Due to body habitus. Contrast injection was performed. Exam performed portable in patient room. Left Ventricle Normal LV size. Left ventricular systolic function is normal. The estimated ejection fraction is 60 %. No regional wall motion abnormalities noted. Right Ventricle Normal RV size. Normal systolic function. Atria Normal left atrium. Normal right atrium. Mitral Valve Mitral valve not well visualized. Tricuspid Valve The tricuspid valve is not well visualized. Great Vessels Normal aortic root. Pericardium/Pleural No pericardial effusion. Medication Diluted definity 3.0ml given slow IV push to enhance endocardial definition. MMode/2D Measurements & Calculations LVIDd: 4.9 cm IVSd: 1.1 cm Ao root diam: 2.8 cm LVIDs: 3.2 cm LVPWd: 0.99 cm RVDd: 2.5 cm FS: 34.6 % LAV(MOD-bp): 49.6 ml LVAd ap4: 25.8 cm2 LVAd ap2: 18.9 cm2 LAV(MOD-bp) Indexed: 21.3 ml/m2 LVLd ap4: 7.7 cm LVLd ap2: 6.9 cm LAV(MOD-sp2): 50.0 ml EDV(MOD-sp4): 70.8 ml EDV(MOD-sp2): 42.4 ml LAV(MOD-sp4): 50.0 ml EDV(sp4-el): 73.1 ml EDV(sp2-el): 44.4 ml LVAs ap4: 13.1 cm2 LVAs ap2: 10.3 cm2 LVLs ap4: 6.3 cm LVLs ap2: 5.5 cm ESV(MOD-sp4): 22.1 ml ESV(MOD-sp2): 15.7 ml ESV(sp4-el): 23.1 ml ESV(sp2-el): 16.3 ml EF(MOD-sp4): 68.8 % EF(MOD-sp2): 62.8 % EF(sp4-el): 68.5 % SV(MOD-sp4): 48.7 ml SV(MOD-sp2): 26.6 ml SV(sp4-el): 50.1 ml LA dimension(2D): 3.5 cm LA A4 area: 17.2 cm2 RA A4 area: 13.6 cm2 TAPSE: 2.4 cm Time Measurements MV dec time: 0.18 sec Doppler Measurements & Calculations MV E max elio: 97.2 cm/sec Lat Peak E' Elio: 19.2 cm/sec Med Peak E' Elio: 12.1 cm/sec MV A max elio: 62.7 cm/sec E/E' lat: 5.1 E/E' med: 8.0 MV E/A: 1.6 MV V2 max: 105.6 cm/sec MV P1/2t max elio: 102.2 cm/sec Ao V2 max: 175.2 cm/sec MV max P.5 mmHg MV P1/2t: 51.4 msec Ao max P.3 mmHg MV V2 mean: 58.6 cm/sec MV dec slope: 582.3 cm/sec2 Ao V2 mean: 123.5 cm/sec MV mean P.6 mmHg Ao mean P.0 mmHg MV V2 VTI: 22.0 cm MVA(P1/2t): 4.3 cm2 Ao V2 VTI: 33.1 cm AV (velocity ratio): 0.89 LV V1 max: 150.4 cm/sec PA V2 max: 165.2 cm/sec LV V1 max P.0 mmHg PA V2 mean: 94.9 cm/sec LV V1 mean P.4 mmHg LV V1 mean: 108.6 cm/sec LV V1 VTI: 29.6 cm ECHO/Echo Complete W/ Contrast Interpretation Summary Normal LV size. Left ventricular systolic function is normal. The estimated ejection fraction is 60 %. Contrast injection was performed. The study was technically limited. Ordering Physician: [place] Wisdom Referring Physician: [facility] Performed By: Kaur Kinsey RDCS, RVT
[2022-12-19 09:11] VITALS: BP 115/83; PULSE 86; RESP 12; TEMP 36.6; O2SAT 100
[2022-12-19] MEDS: Lithium Carbonate 300mg Capsule 300 MG PO (09:14)
[2022-12-19] MEDS: Pantoprazole Sodium 40 MG Tablet PO (09:14)
--- NOTE | 2022-12-19 11:20 | PCM.PN.HOSP ---
Reason for Visit Reason for Visit: Diagnoses Syncope and collapse (12/18/22) Subjective Subjective Patient is a 27-year-old lady who presented with syncope and presyncope admitted to monitored bed for subsequent management Objective Data Objective Data Vital Signs: Vital Signs Temp Pulse Resp BP Pulse Ox O2 Del Method 97.9 F 86 12 115/83 H 100 Room Air 12/19/22 09:11 12/19/22 09:11 12/19/22 09:11 12/19/22 09:11 12/19/22 09:11 12/19/22 09:11 Oxygen Delivery Method Room Air Weight: 129.1 kg Body Mass Index (BMI) 45.9 Intake & Output: Intake and Output for Last 24 Hours 12/17/22 12/18/22 12/19/22 23:59 23:59 23:59 Intake Total 1000 / 1000 Balance 1000 / 1000 Lab / Micro Data 12/18/22 15:10 12/18/22 15:10 Labs: Laboratory Results - last 24 hr 12/18/22 15:10: WBC 11.2 H, RBC 4.50, Hgb 12.9, Hct 41.0, MCV 91.1, MCH 28.7, MCHC 31.5 L, RDW Std Deviation 46.5 H, RDW Coeff of Delmy 13.7, Plt Count 404, MPV 9.0, Immature Gran % (Auto) 0.400, Neut % (Auto) 73.9 H, Lymph % (Auto) 18.1 L, [place] % (Auto) 6.4, Eos % (Auto) 0.7, Baso % (Auto) 0.5, Absolute Neuts (auto) 8.3 H, Absolute Lymphs (auto) 2.03, Nucleated RBC % 0, D-Dimer Quant (PE/DVT) < 0.27 L, Sodium 140, Potassium 4.1, Chloride 108 H, Carbon Dioxide 29.0, Anion Gap 3 L, BUN 12, Creatinine 0.67, Est GFR (MDRD) Af Amer 137, Est GFR (MDRD) Non-Af 113, BUN/Creatinine Ratio 17.9, Glucose 107 H, Calcium 9.2, Troponin I High Sens 3 12/18/22 16:43: [place] 0.60 Radiography Diagnostic Testing: Radiology Impression Brain CT 12/18/22 14:38 IMPRESSION: Normal unenhanced CT scan of the brain. Electronically Signed: Dante Espitia MD at 15:40 EDT , Chest X-Ray 12/18/22 15:30 IMPRESSION: No acute abnormality is seen. Electronically Signed: Dante Espitia MD at 15:43 EDT , Echocardiogram 12/19/22 05:55 Interpretation Summary Normal LV size. Left ventricular systolic function is normal. The estimated ejection fraction is 60 %. Contrast injection was performed. The study was technically limited. Ordering Physician: [place] Wisdom Referring Physician: [facility] Performed By: Kaur Kinsey, CISCO, RVT Physical Exam Narrative GENERAL: cooperative HEENT: Atraumatic; normocephalic EYES; Anicteric, Normal Conjunctiva NECK; supple, normal thyroid, RESPIRATORY: Diminished to auscultation CARDIOVASCULAR: Regular S1 S2, GI: soft, normoactive bowel sounds, : No Renal angle tenderness; EXTREMITIES: No edema, no clubbing, MUSCULOSKELETAL: no muscle wasting NEURO: Awake; no lateralizing signs. SKIN: No Rash PSYCH; Flat affect Assessment & Plan Assessment/Plan (1) Syncope: QUALIFIERS: Encounter type: initial encounter PLAN: Plan Patient is a 27-year-old lady who presented with syncope and presyncope admitted to monitored bed for subsequent management 1. Syncope ? Suspected to secondary to orthostatic hypotension. Patient was found to have positive orthostasis. Work-up including echo and serial cardiac enzymes negative to date. Patient was on spironolactone and losartan on admission held. Resuscitated with IV fluids 2. Essential hypertension ? Patient antihypertensives held in view of her positive orthostasis 3. Autism ? Supportive care 4. Bipolar disorder ? Patient is on Abilify and lithium continue 5. Polycystic ovarian disease ? Patient with spironolactone 6. Class III obesity with BMI of 45.9 ? Complicating care weight loss advised 7. DVT prophylaxis ? SC Lovenox Time spent in the patient's overall evaluation,decision-making process, review of diagnostic data, adjustment of management, discussion with other providers, nursing nursing and ancillary staff involved in patient's care documentation, 40 Minutes Charges/Coding Visit Charges Inpatient E&M: 37168 Subs Hosp L2
[2022-12-19 11:33] VITALS: BP 128/93; BP 131/81; BP 145/91; PULSE 115; PULSE 85; PULSE 90
[2022-12-19 13:15] VITALS: BP 131/81; PULSE 85; RESP 14; TEMP 36.3; O2SAT 100
[2022-12-19] MEDS: 0.9% Normal Saline (1000mL) 1,000 ML 150 ML IV ×2 (15:05→22:05)
--- NOTE | 2022-12-19 15:41 | CHAPLAIN ---
Type of Pastoral Visit _x__ Initial Visit ___ Follow-up Visit ___ On-call Visit ___ General Patient Visit ___ Spiritual Assessment ___ Family Conference ___ Bereavement ___ Rapid Response ___ Code Blue ___ Other (describe below) Pastoral Care Referral From _x__ Patient ___ Family ___ Nurse ___ Physician ___ Site Superintendent ___ Java Golden Gate Developer ___ Other (describe below) Sacrament/Intervention _x__ Active listening ___ Anointing ___ Uatsdin ___ Bereavement ___ Communion ___ [place] exploration ___ ___ Life review _x__ Prayer ___ Reconciliation ___ Sacrament of Sick _x__ Supportive presence ___ Wedding ___ Other (describe below) Pastoral Comments patient describes her health issue and gives some suggestions on what she thinks it might be; however pt says that tests are coming back normal without any answers; pt admits that she has anxiety about this situation; pt is offered time to express her feelings and to talk about her concerns; pt is then visited by her mother and another family member; pt welclomes prayer and the presence of this airport ramp agent for support
[2022-12-19] MEDS: proCHLORPERazine 10 MG/2 ML Vial 5 MG IV (15:42)
[2022-12-19] MEDS: 0.9% Saline Lock 10 ML Syringe IV (15:43)
[2022-12-19 17:15] VITALS: BP 122/56; PULSE 98; RESP 12; TEMP 36.8; O2SAT 98
[2022-12-19 20:30] VITALS: BP 121/72; PULSE 92; RESP 16; TEMP 36.7; O2SAT 100
[2022-12-19] MEDS: Lithium Carbonate 300mg Capsule 600 MG PO (22:06)
[2022-12-20 02:28] VITALS: BP 123/72; PULSE 80; RESP 16; TEMP 36.5; O2SAT 99
[2022-12-20] MEDS: 0.9% Saline Lock 10 ML Syringe IV (02:51)
[2022-12-20] MEDS: proCHLORPERazine 10 MG/2 ML Vial 5 MG IV (02:51)
[2022-12-20 05:34] VITALS: BP 109/69; BP 126/87; BP 138/96; PULSE 111; PULSE 78; PULSE 88
[2022-12-20 05:58] LABS: Absolute Lymphocyte Count 2.18 X10^3/uL (0.83-4.51); Absolute Neutrophil Count 3.6 X10^3/uL (2.0-7.7); Basophil# 0.04 X10^3/uL; Basophil% 0.6 % (0-1); Eosinophil# 0.13 X10^3/uL; Hematocrit 36.3 % (37-47); Hemoglobin 11.5 g/dL (12.0-15.0); Lymphocyte # 2.18 X10^3/ul (0.83-4.51); Mean Corp Hgb Conc 31.7 g/dL (32-36); Mean Corpuscular Hgb 28.9 pg (27.0-32.0); Mean Corpuscular Volume 91.2 fL (81-99); Mean Platelet Vol. 9.1 fl (6.2-12.0); Monocyte# 0.48 X10^3/uL; Monocyte% 7.5 % (0-10); NRBC Flagged by Analyzer 0 % (0-5); Neutrophil # 3.58 X10^3/uL (2.7-7.7); Neutrophil % 55.7 % (47-70); Platelet Count 322 K/mm3 (150-450); RBC Distribution Width CV 13.3 % (11.6-14.6); RBC Distribution Width SD 44.9 fl (35.1-43.9); Red Blood Count 3.98 M/mm3 (4.2-5.4); White Blood Count 6.4 K/mm3 (4.4-11.0)
[2022-12-20 06:25] LABS: Anion Gap 6 (5-15); BUN 12 mg/dL (7-18); Calcium,Total 8.5 mg/dL (8.5-10.1); Chloride 110 mmol/L (98-107); EST Glomerular Filtration Rate 128 mL/min (>60); Est Glom Filt Rate - Afr Amer 155 mL/min (>60); Estimated Creatinine Clearance 133.01 ml/min; Glucose 109 mg/dL (74-106); Magnesium 2.2 mg/dL (1.6-2.6); Potassium 3.6 mmol/L (3.5-5.1); Sodium Level 140 mmol/L (136-145)
[2022-12-20 06:46] VITALS: BP 138/96; PULSE 75; RESP 16; TEMP 36.4; O2SAT 94
--- NOTE | 2022-12-20 08:26 | PCM.PN.HOSP ---
Reason for Visit Reason for Visit: Diagnoses Syncope and collapse (12/19/22) Subjective Subjective Patient seen blood pressure remains relatively stable plan is for patient to be discharged home Objective Data Objective Data Vital Signs: Vital Signs Temp Pulse Resp BP Pulse Ox O2 Del Method 97.6 F L 75 16 138/96 H 94 Room Air 12/20/22 06:46 12/20/22 06:46 12/20/22 06:46 12/20/22 06:46 12/20/22 06:46 12/20/22 06:46 Oxygen Delivery Method Room Air Weight: 129.1 kg Body Mass Index (BMI) 45.9 Intake & Output: Intake and Output for Last 24 Hours 12/18/22 12/19/22 12/20/22 23:59 23:59 23:59 Intake Total 1000 / 1000 1120 / 1120 1000 / 1000 Output Total 0 / 0 Balance 1000 / 1000 1120 / 1120 1000 / 1000 Lab / Micro Data 12/20/22 05:00 12/20/22 05:00 Labs: Laboratory Results - last 24 hr 12/20/22 05:00: WBC 6.4, RBC 3.98 L, Hgb 11.5 L, Hct 36.3 L, MCV 91.2, MCH 28.9, MCHC 31.7 L, RDW Std Deviation 44.9 H, RDW Coeff of Delmy 13.3, Plt Count 322, MPV 9.1, Immature Gran % (Auto) 0.200, Neut % (Auto) 55.7, Lymph % (Auto) 34.0, [place] % (Auto) 7.5, Eos % (Auto) 2.0, Baso % (Auto) 0.6, Absolute Neuts (auto) 3.6, Absolute Lymphs (auto) 2.18, Nucleated RBC % 0, Sodium 140, Potassium 3.6, Chloride 110 H, Carbon Dioxide 24.0, Anion Gap 6, BUN 12, Creatinine 0.60, Estim Creat Clear Calc 133.01, Est GFR (MDRD) Af Amer 155, Est GFR (MDRD) Non-Af 128, BUN/Creatinine Ratio 20.0, Glucose 109 H, Calcium 8.5, Magnesium 2.2 Radiography Diagnostic Testing: Radiology Impression Echocardiogram 12/19/22 05:55 Interpretation Summary Normal LV size. Left ventricular systolic function is normal. The estimated ejection fraction is 60 %. Contrast injection was performed. The study was technically limited. Ordering Physician: [place] Wisdom Referring Physician: [facility] Performed By: Kaur Kinsey, CISCO, RVT Physical Exam Narrative GENERAL: cooperative HEENT: Atraumatic; normocephalic EYES; Anicteric, Normal Conjunctiva NECK; supple, normal thyroid, RESPIRATORY: Diminished to auscultation CARDIOVASCULAR: Regular S1 S2, GI: soft, normoactive bowel sounds, : No Renal angle tenderness; EXTREMITIES: No edema, no clubbing, MUSCULOSKELETAL: no muscle wasting NEURO: Awake; no lateralizing signs. SKIN: No Rash PSYCH; Flat affect Assessment & Plan Assessment/Plan (1) Syncope: QUALIFIERS: Encounter type: initial encounter PLAN: Plan Patient is a 27-year-old lady who presented with syncope and presyncope admitted to monitored bed for subsequent management 1. Syncope ? Suspected to secondary to orthostatic hypotension. Patient was found to have positive orthostasis. Work-up including echo and serial cardiac enzymes negative to date. Patient was on spironolactone and losartan on admission held. Resuscitated with IV fluids ? Random cortisol level came back within normal limits plan is for patient to be discharged home with discontinuation of her antihypertensive 2. Essential hypertension ? Patient antihypertensives held in view of her positive orthostasis 3. Autism ? Supportive care 4. Bipolar disorder ? Patient is on Abilify and lithium continue 5. Polycystic ovarian disease ? Patient with spironolactone 6. Class III obesity with BMI of 45.9 ? Complicating care weight loss advised 7. DVT prophylaxis ? SC Lovenox Time spent in the patient's overall evaluation,decision-making process, review of diagnostic data, adjustment of management, discussion with other providers, nursing nursing and ancillary staff involved in patient's care documentation, 40 Minutes Charges/Coding Visit Charges Inpatient E&M: 01551 Subs Hosp L2
[2022-12-20] MEDS: Pantoprazole Sodium 40 MG Tablet PO (08:47)
[2022-12-20] MEDS: Lithium Carbonate 300mg Capsule 300 MG PO (08:47)
--- NOTE | 2022-12-20 11:27 | DS.PCM_ITS ---
Providers Date of Admission: 12/19/22 Date of Discharge: 12/20/22 Primary Care Physician: [facility] Reason For Visit: SYNCOPE Diagnosis Discharge Diagnosis (1) Syncope: Status: Acute Code(s): R55 - Syncope and collapse Qualifiers: Encounter type: initial encounter Plan Patient is a 27-year-old lady who presented with syncope and presyncope admitted to monitored bed for subsequent management 1. Syncope ? Suspected to secondary to orthostatic hypotension. Patient was found to have positive orthostasis. Work-up including echo and serial cardiac enzymes negative to date. Patient was on spironolactone and losartan on admission held. Resuscitated with IV fluids ? Random cortisol level came back within normal limits plan is for patient to be discharged home with discontinuation of her antihypertensive 2. Essential hypertension ? Patient antihypertensives held in view of her positive orthostasis 3. Autism ? Supportive care 4. Bipolar disorder ? Patient is on Abilify and lithium continue 5. Polycystic ovarian disease ? Patient with spironolactone 6. Class III obesity with BMI of 45.9 ? Complicating care weight loss advised 7. DVT prophylaxis ? SC Lovenox Medications at Discharge Home Medications lithium carbonate 300 mg capsule 300 mg PO DAILY Bipolar 04/05/17 ferrous sulfate 325 mg (65 mg iron) tablet (FeroSul) 325 mg PO QODAY 01/24/22 lithium carbonate 600 mg capsule 600 mg PO QHS 01/24/22 metoclopramide HCl 10 mg tablet (Reglan) 5 mg (1/2 x 10 mg) PO BID nausea and vomiting #28 tabs 06/21/22 pantoprazole 40 mg tablet,delayed release 40 mg PO DAILY 08/04/22 fremanezumab-vfrm 225 mg/1.5 mL subcutaneous auto-injector (Ajovy) 225 mg subcut QMONTH 10/03/22 budesonide 3 mg capsule,delayed,extended release 9 mg (3 x 3 mg) PO DAILY #90 ea 10/10/22 famotidine 40 mg tablet 40 mg PO BID #60 tabs 10/31/22 spironolactone 50 mg tablet See Rx Instructions .Route .COMPLEX #60 TABLETS 11/01/22 aripiprazole lauroxil 441 mg/1.6 mL suspension, ext.rel. IM syringe (Aristada) 441 mg IM .COMPLEX 12/18/22 cholecalciferol (vitamin D3) 25 mcg (1,000 unit) tablet (Vitamin D3) 25 mcg PO DAILY 12/18/22 imipramine HCl 25 mg tablet 25 mg PO DAILY 12/18/22 Hospital Course Summary of Care Provided Minutes Spent on Discharge: 35 Physical Exam Narrative GENERAL: cooperative HEENT: Atraumatic; normocephalic EYES; Anicteric, Normal Conjunctiva NECK; supple, normal thyroid, RESPIRATORY: Diminished to auscultation CARDIOVASCULAR: Regular S1 S2, GI: soft, normoactive bowel sounds, : No Renal angle tenderness; EXTREMITIES: No edema, no clubbing, MUSCULOSKELETAL: no muscle wasting NEURO: Awake; no lateralizing signs. SKIN: No Rash PSYCH; Flat affect Weight / BMI Weight Weight: 129.1 kg Body Mass Index (BMI) 45.9 ABG / Lab / Microbiology Data 12/20/22 05:00 12/20/22 05:00 Laboratory: Laboratory Results - last 24 hr 12/20/22 05:00: WBC 6.4, RBC 3.98 L, Hgb 11.5 L, Hct 36.3 L, MCV 91.2, MCH 28.9, MCHC 31.7 L, RDW Std Deviation 44.9 H, RDW Coeff of Delmy 13.3, Plt Count 322, MPV 9.1, Immature Gran % (Auto) 0.200, Neut % (Auto) 55.7, Lymph % (Auto) 34.0, Jasper % (Auto) 7.5, Eos % (Auto) 2.0, Baso % (Auto) 0.6, Absolute Neuts (auto) 3.6, Absolute Lymphs (auto) 2.18, Nucleated RBC % 0, Sodium 140, Potassium 3.6, Chloride 110 H, Carbon Dioxide 24.0, Anion Gap 6, BUN 12, Creatinine 0.60, Estim Creat Clear Calc 133.01, Est GFR (MDRD) Af Amer 155, Est GFR (MDRD) Non-Af 128, BUN/Creatinine Ratio 20.0, Glucose 109 H, Calcium 8.5, Magnesium 2.2, Cortisol 13.40 D/C Instructions Discharge Diet: No restrictions Discharge Activity: Return to Normal Activity Call your doctor if you observe: Fever of 101 or Higher, Shortness of breath, Fainting spells and Chest pain Meaningful Use Info Meaningful Use Diagnoses (Choose all that apply): None applicable Discharge Plan Admission Admit Date/Time: 12/19/22 15:48 Attending Provider: Grabiel Li [facility] Providers: [place] [facility] Discharge Orders/Prescriptions Prescriptions: Continued Ajovy Autoinjector 225 mg/1.5 mL auto-injector 225 mg subcut QMONTH Patient Comments: PT STATES USES BETWEEN FIRST AND FIFTH OF EACH MONTH lithium carbonate 300 MG capsule 300 mg PO DAILY lithium carbonate 600 mg Capsule 600 mg PO QHS ferrous sulfate [FeroSul] 325 mg (65 mg iron) tablet 325 mg PO QODAY pantoprazole 40 mg Tablet,Delayed Release (Dr/Ec) 40 mg PO DAILY imipramine HCl 25 mg tablet 25 mg PO DAILY cholecalciferol (vitamin D3) [Vitamin D3] 25 mcg (1,000 unit) tablet 25 mcg PO DAILY Aristada 441 mg/1.6 mL suspension,extended rel syring 441 mg IM .COMPLEX Rx Instructions: 441 mg intramuscularly Q28D; metoclopramide HCl [Reglan] 10 mg tablet 5 mg PO BID Qty: 28 11RF budesonide 3 mg capsule,delayed,extend.release 9 mg PO DAILY Qty: 90 2RF Patient Comments: PT STATES SHE IS UNSURE IF SHE IS STILL TAKING THIS MED famotidine 40 mg tablet 40 mg PO BID Qty: 60 2RF spironolactone 50 mg tablet See Rx Instructions .ROUTE .COMPLEX Qty: 60 6RF Dose Instruction: TAKE 1 TABLET BY MOUTH TWICE A DAY Rx Instructions: TAKE 1 TABLET BY MOUTH TWICE A DAY Discontinued losartan 50 mg tablet 50 mg PO DAILY [facility] - Within 1 Week Disposition Disposition (needs filled in before D/C Order can be placed): Home, Self Care Charges/Coding Visit Charges Inpatient E&M: 72051 Disch Hosp >30min
[2022-12-20 11:29] VITALS: BP 129/83; PULSE 85; RESP 12; TEMP 36.7; O2SAT 100
--- NOTE | 2022-12-20 11:45 | CASEMGMT ---
RN CM Face to Face with patient for initial transition planning/care coordination assessment. RN CM introduced self and role at [facility]. Patient lying in bed, alert and oriented. Patient willing to participate in assessment and is able to answer all questions appropriately. Care providers, pharmacy, and demographics verified. Patient wishes to discharge home with outpatient therapy. Patient states she has no further needs or concerns at this time. CM to follow for discharge planning needs that may arise. PCP: Frances Tierney Specialists: Friend, GI; Hasting, CAST ASSOCIATE; [facility] waitlist Preferred Pharmacy: [facility] Insurance: [employer] Prescription Benefit: yes Living Will/HPOA: none LNOK: mother, father Living Arrangements: Patient lives alone in a first floor apartment. Patient states she is independent Transportation: parents DME/HHC: Patient has cane. Denies previous HHC or SNF. Script received for outpatient and provided to patient with [facility] and [facility]. Script faxed to [facility] with request to call patient to schedule appointment. Disposition Plan: Patient to discharge home with outpatient therapy, family support, and follow-up plans in place. Neli WONG, RN, CM
--- NOTE | 2022-12-20 14:11 | NURSING ---
Discharge instructions provided to patient. Home meds reviewed, denies questions at this time. Patient will schedule follow up appointments. IV removed without complication.
== END 2022-12-20 14:53 | disposition home or self-care (01) ==
LOC: ED 16:48 → PCU 17:10
PROVIDERS: Nurse Practitioner; Admitting Provider Internal Medicine; Emergency Provider Emergency Medicine; Visit Provider Internal Medicine
DX: R55 Syncope and collapse (principal); F31.9 Bipolar disorder, unspecified; E66.01 Morbid (severe) obesity due to excess calories; Z68.42 Body mass index [BMI] 45.0-49.9, adult; E11.9 Type 2 diabetes mellitus without complications; I10 Essential (primary) hypertension; E28.2 Polycystic ovarian syndrome; F41.8 Other specified anxiety disorders; G43.709 Chronic migraine without aura, not intractable, without status migrainosus; F84.0 Autistic disorder; Z79.899 Other long term (current) drug therapy
CPT/HCPCS: 36415; 70450; 71046; 80048; 80178; 82533; 83735; 84484; 85025; 85379; 93005; 93306; 96361; 96374; 96376; 97162; 99221; 99285; J7030; Q9957; A4216; C8929; G0378

== ENCOUNTER 2023-01-29 14:00 | Outpatient (RCR) | payer MEDICAID, SELFPAY ==
--- NOTE | 2022-12-26 13:13 | HP.PTEVAL ---
Patient's Visit Information Visit Information Visit Information: DIAZ DOUGLAS is a 27 year old F referred to Physical Therapy by HORTENSIA Sotomayor with a diagnosis of syncope and weakness. Date of Evaluation: 12/26/22 Physical Therapist: WALLY Hale Visit Plan Frequency: 1x/Week Duration: Indefinite Plan: 1X/ week for 8-12 weeks for progressive VOR, possible testing and treatment of LE weakness May test LE strength once dizziness improves Subjective Subjective: About a month ago she was passing out (2-3 times a day) and getting extremely dizzy for a week straight. They checked her for SIMS but her HR did not go up enough. They said she has orthostatic hypotension. She spent 2 days in the hospital for observation and just not sure what is causing. She used a cane before this for about 1.5 months cause she was getting dizzy but not passing out yet. This all started the first part of Nov. She lives alone (apt at the [facility])...technically a correction. She is not passing out any more but the dizziness is about the same. She is dizzy in sitting and standing. She has been throwing up at least once a day and that is not uncommon for her. 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 Pt reports that she wants to throw up. She is on meclazene.. just took it about an hour ago. She likes to color, music, play board games. She cooks a little. Pain COLEMAN: Pain Intensity (Out of 10): 5 Objective Objective: Gait: Walks with a straight cane with decrease stride length, no head turn, and flexed trunk. Seated smooth pursuit horizontal slowly X 8 seconds and she got to about 5/10 dizziness and then on second attempt we got to about 15 seconds and then stopped and rested and then got to 1 min (got to 4/10 dizziness). Seated smooth pursuit slowly vertical X 30, 1 min ( 3/10 dizziness) Seated head and eyes move from one target to the next X 25 seconds (4.8 dizziness) and then repeated X 1 min (3.5 dizziness) Balance/Special Test Scores Lower Extremity Functional Score: 28 Goals Goal 1:: I HEP Goal Time Frame: 2-4 Weeks Goal 2:: Be able to complete 1 min VOR in standing with no dizziness both vertical and horizontal Goal Time Frame: 8-12 Weeks Goal 3:: Be able to walk with head turns without feeling dizzy Goal Time Frame: 8-12 Weeks Goal 4:: Test and treat LE weakness if deficits are present Goal Time Frame: 8-12 Weeks Rehabilitation Potential Rehabilitation Potential: Good Anticipated Interventions Patient/Client Instruction: Educate patient on: Condition and Plan of Care For the Purpose of:: To improve muscle performance and motor function, To improve ability to perform ADL's, To increase tolerance to activity/condition/position, To improve performance and independence with ADL's, To decrease level of supervision to perform tasks, To improve ability of physical actions for home/community/work/leisure, To improve gait and locomotor functions, To improve balance, To improve safety with gait and To assume or resume ADL's Therapeutic Exercise to Include: Strength training, Endurance training, Balance training, Coordination, Postural training, Gait and locomotor training, Neuromotor development and Active ROM For the Purpose of:: To increase ROM, To improve nutrient delivery to tissue, To improve muscle performance and motor function, To improve ability to perform ADL's, To increase tolerance to activity/condition/position, To improve performance and independence with ADL's, To decrease level of supervision to perform tasks, To improve ability of physical actions for home/community/work/leisure, To improve gait and locomotor functions, To improve endurance, To improve balance and To improve safety with gait Functional Training to Include: Gait training For the Purpose of:: To improve gait and locomotor functions and To improve safety with gait Text: Thank you for the opportunity to evaluate your patient. For Medicare and Medicare HMO plans, please review the plan of care and approve it. It will need to be FAXED BACK to us at [phone] for Medicare purposes. For Medicare only, by signing this I certify the plan of care. Please let me know if there are questions or concerns regarding this plan of care. Physician Signature: Date:
--- NOTE | 2023-01-29 14:25 | HP.PTDCSUM ---
Discharge Summary D/C summary: It has been my pleasure to treat DIAZ DOUGLAS referred by Dr. Grabiel Li MD, with the diagnosis of syncope and weakness for a total of 3 visit(s). Discharge Date: 01/29/23 Please see the following information for a summary of their discharge status. Subjective Subjective: Pt reports that she only got dizzy once since last time and she was walking and moving her head too fast. No other dizziness except that one. She is DM and her blood sugar was 66 so that could have been part of it. Pt reports no weakness in her legs. Pain COLEMAN: Pain Intensity (Out of 10): 5 Overall Improvement % Improvement: 100 Objective Objective/Function: Be able to complete 1 min each VOR in standing with no dizziness both vertical and horizontal Walking with horizontal head turns and vertical head turns without any dizziness standing on blue foam with head turns she had a slight increase in dizziness but not much. Goals Goal 1:: I HEP Goal Progress: Goal Met Goal 2:: Be able to complete 1 min VOR in standing with no dizziness both vertical and horizontal Goal Progress: Goal Met Goal 3:: Be able to walk with head turns without feeling dizzy Goal Progress: Goal Met Goal 4:: Test and treat LE weakness if deficits are present Plan Plan: D/C PT to HEP D/C Information Discharge Comments: DC PT to HEP d/c sentence: If there are questions or concerns regarding this patient's physical therapy, please feel free to call me at [phone]. Thank you for the referral of this patient. Sincerely, Domitila Carr, MPT Balance/Gait/Functional tests Balance/Special Test Scores Lower Extremity Functional Score: 75 Improvement % Improvement: 100
== END 2023-01-29 19:00 | disposition home or self-care (01) ==
LOC: PT 14:00
PROVIDERS: PCP Nurse Practitioner Family; Referring Provider Internal Medicine; Visit Provider Internal Medicine
DX: R55 Syncope and collapse (principal); R53.1 Weakness
CPT/HCPCS: 97110; 97162; 97530

== ENCOUNTER → 2023-01-30 | Outpatient (CLI) | payer MEDICAID, SELFPAY ==
[2023-01-30 10:57] LABS: Erythrocyte Sedimentation Rate 24 mm/hr (0-30)
[2023-01-30 10:58] LABS: Absolute Lymphocyte Count 2.23 X10^3/uL (0.83-4.51); Absolute Neutrophil Count 7.5 X10^3/uL (2.0-7.7); Basophil# 0.08 X10^3/uL; Basophil% 0.8 % (0-1); Eosinophil# 0.11 X10^3/uL; Hemoglobin 12.9 g/dL (12.0-15.0); Lymphocyte # 2.23 X10^3/ul (0.83-4.51); Mean Corp Hgb Conc 30.7 g/dL (32-36); Mean Corpuscular Hgb 28.2 pg (27.0-32.0); Mean Corpuscular Volume 91.9 fL (81-99); Mean Platelet Vol. 9.1 fl (6.2-12.0); Monocyte% 6.6 % (0-10); NRBC Flagged by Analyzer 0 % (0-5); Neutrophil # 7.46 X10^3/uL (2.7-7.7); Neutrophil % 70.2 % (47-70); Platelet Count 403 K/mm3 (150-450); RBC Distribution Width CV 13.3 % (11.6-14.6); RBC Distribution Width SD 45.3 fl (35.1-43.9); Red Blood Count 4.57 M/mm3 (4.2-5.4); White Blood Count 10.6 K/mm3 (4.4-11.0)
[2023-01-30 11:27] LABS: ALB/GLOB Ratio 0.8 RATIO (0.9-2.4); AST(SGOT) 10 U/L (15-37); Alanine Aminotransfer ALT/SGPT 29 U/L (13-56); Albumin, Serum 3.3 g/dL (3.2-5.0); Alkaline Phosphatase 59 U/L (45-117); Anion Gap 5 (5-15); BUN 16 mg/dL (7-18); BUN/Creat Ratio 23.6 RATIO (10-20); Calcium,Total 8.8 mg/dL (8.5-10.1); Chloride 108 mmol/L (98-107); Cholesterol 170 mg/dL (200); Creatinine, Serum 0.68 mg/dL (0.55-1.02); EST Glomerular Filtration Rate 112 mL/min (>60); Est Glom Filt Rate - Afr Amer 135 mL/min (>60); Globulin 4.2 g/dL (2.2-4.2); Glucose 95 mg/dL (74-106); High Density Lipoprotein 38 mg/dL; Potassium 4.1 mmol/L (3.5-5.1); Protein, Total 7.5 g/dL (6.4-8.2); Sodium Level 139 mmol/L (136-145); Thyroid Stim Hormone (TSH) 2.19 uIU/mL (0.358-3.74); Triglycerides 120 mg/dL; Very Low Density Lipoprotein 24 mg/dL (5-40)
[2023-01-30 11:41] LABS: Hemoglobin A1c 5.1 % (3.8-5.6)
== END | disposition home or self-care (01) ==
LOC: LAB 10:11
PROVIDERS: PCP Nurse Practitioner Family; Referring Provider Internal Medicine Gastroenterology; Visit Provider Internal Medicine Gastroenterology
DX: K76.0 Fatty (change of) liver, not elsewhere classified (principal); K50.90 Crohn's disease, unspecified, without complications
CPT/HCPCS: 36415; 80053; 80061; 83036; 84443; 85025; 85652; 86140

== ENCOUNTER → 2023-02-06 | Outpatient (CLI) | payer MEDICAID, SELFPAY ==
--- NOTE | 2023-02-06 08:54 | US_ITS ---
STUDY: ABDOMINAL ULTRASOUND - RIGHT UPPER QUADRANT; ELASTOGRAPHY REASON FOR VISIT: Female, 27 years old. Fatty infiltration of the liver. Hepatomegaly. TECHNIQUE: Ultrasound evaluation of the right upper quadrant was performed with real-time and static ching-scale imaging. Point quantification shear wave elastography was performed ([employer]). TECHNICAL QUALITY: Adequate. COMPARISON: Comparison is made with prior study dated 2022. FINDINGS: Liver: The liver is enlarged and measures 19 cm. There is increased echogenicity consistent with fatty infiltration. The bile ducts are within normal limits. There is hepatic color flow. The direction of portal flow is hepatopetal. There is no demonstrated mass lesion. Median liver stiffness measured 10.3 kPa. Gallbladder: Normal distended gallbladder. The gallbladder wall measures 2.4 mm. There is a negative sonographic Hansen''s sign. There is no pericholecystic fluid. There are no gallstones. Common Bile Duct (C.B.D.): The common bile duct measures 2.5 mm. Pancreas: There is normal echogenicity of the visualized pancreas. There is no demonstrated pancreatic mass or cyst. Right Kidney: Normal size of the right kidney. The right kidney measures 11.3 cm x 4.9 cm x 4.9 cm. Normal renal cortex. The right cortex measures 1.4 cm. There is no demonstrated renal mass or cyst. There is no right hydronephrosis. US/ABD Limited w/ Elastography IMPRESSION: 1. Liver stiffness measures 10.3 kPa compatible with F2-F3 (Mild to moderate liver fibrosis) Metavir score. Electronically Signed: Dante Espitia MD at 13:08 EST ,
== END | disposition home or self-care (01) ==
LOC: US 08:51
PROVIDERS: PCP Nurse Practitioner Family; Referring Provider Internal Medicine Gastroenterology; Visit Provider Internal Medicine Gastroenterology
DX: K76.0 Fatty (change of) liver, not elsewhere classified (principal); K50.90 Crohn's disease, unspecified, without complications
CPT/HCPCS: 91200; 76705; 76981

== ENCOUNTER 2023-04-07 16:00 | Emergency (ER) | payer MEDICAID, SELFPAY ==
[2023-04-07] VITALS (7 sets, daily range): BP systolic 129–153; BP diastolic 71–97; PULSE 99–120; RESP 16–20; TEMP 36.4; O2SAT 94; BMI 47.3
--- NOTE | 2023-04-07 16:22 | EX.ED.VIS.PS ---
HPI <EDELMIRA White - Last Filed: 04/07/23 20:30> HPI - Psych History of Present Illness Chief Complaint: Suicidal Narrative Narrative: Patient presenting today due to suicidal thoughts. She reports that she has had suicidal thoughts on and off for several years but it has become more intense and frequent over the past week. She reports that her plan would be to, overdose on my psych pills. She called the counseling center today and spoke with crisis who encouraged her to come in for medical clearance for psychiatric placement. She reports that she has been placed in the past. She reports a history of bipolar disorder, anxiety, and depression. She denies any substance use, visual/tactile hallucinations, and homicidal thoughts. [facility] <EDELMIRA White - Last Filed: 04/07/23 20:30> [facility] Medical History Anxiety Arthritis Autism Back pain Bipolar 1 disorder Bipolar disorder Cellulitis Cirrhosis Depression Depression with anxiety Diabetes Dietary restriction GERD (gastroesophageal reflux disease) Heartburn History of echocardiogram IBS (irritable bowel syndrome) Irregular heart beat Kidney stones Migraine headache Migraines Non-smoker Obesity PCOS (polycystic ovarian syndrome) Syncope Wears glasses Home Medications lithium carbonate 300 mg capsule 300 mg PO DAILY Bipolar 04/05/17 [History Last Taken 12/18/22] ferrous sulfate 325 mg (65 mg iron) tablet (FeroSul) 325 mg PO QODAY supplement 01/24/22 [History Last Taken 12/16/22] lithium carbonate 600 mg capsule 600 mg PO QHS mental health 01/24/22 [History Last Taken 12/17/22] metoclopramide HCl 10 mg tablet (Reglan) 5 mg (1/2 x 10 mg) PO BID nausea and vomiting #28 tabs 06/21/22 [Rx Last Taken 12/18/22] pantoprazole 40 mg tablet,delayed release 40 mg PO QHS reflux 08/04/22 [History Last Taken 12/17/22] fremanezumab-vfrm 225 mg/1.5 mL subcutaneous auto-injector (Ajovy) 225 mg subcut QMONTH migraine 10/03/22 [History Last Taken 11/21/22] spironolactone 50 mg tablet See Rx Instructions .Route .COMPLEX diuretic #60 TABLETS 11/01/22 [Rx Last Taken 12/18/22] aripiprazole lauroxil 441 mg/1.6 mL suspension, ext.rel. IM syringe (Aristada) 441 mg IM .COMPLEX mental health 12/18/22 [History Last Taken 12/18/22] cholecalciferol (vitamin D3) 25 mcg (1,000 unit) tablet (Vitamin D3) 25 mcg PO DAILY vitamin 12/18/22 [History Last Taken 12/17/22] imipramine HCl 25 mg tablet 25 mg PO DAILY mental health 12/18/22 [History Last Taken 12/17/22] famotidine 40 mg tablet 40 mg PO BID reflux #60 tabs 01/19/23 [Rx Last Taken Unknown] budesonide 3 mg capsule,delayed,extended release 3 mg PO DAILY 30 days #30 ea 02/21/23 [Rx Last Taken Unknown] mecobalamin (vitamin B12) 1,000 mcg lozenges 1,000 mcg PO DAILY 03/20/23 [History Last Taken Unknown] Allergy/AdvReac Type Severity Reaction Status Date / Time metformin Allergy Mild Nausea/Vom/ Verified 04/07/23 16:01 Diarrhea pollen extracts Allergy Hives Verified 04/07/23 16:01 escitalopram [From Lexapro] AdvReac Other Verified 04/07/23 16:01 lactase [From Dairy Aid] AdvReac Upset Verified 04/07/23 16:01 Stomach ondansetron AdvReac Anaphylaxis Verified 04/07/23 16:01 [From Zofran (as hydrochloride)] Family History Mother Uterine cancer Other Asthma Depression Diabetes GERD (gastroesophageal reflux disease) Heart disease Hyperlipidemia Hypertension Surgical History H/O knee surgery H/O spinal fusion History of colonoscopy History of esophagogastroduodenoscopy (EGD) History of tonsillectomy and adenoidectomy Social History household members: none housing: apartment current occupational status: unemployed history of recent travel: No Smoking Status: Never smoker alcohol intake: current alcohol intake frequency: holidays/special occasions only substance use type: does not use what type of physical activity do you participate in: walking frequency: daily seatbelt use: always do you feel safe at home: Yes additional social history: single ROS <EDELMIRA White - Last Filed: 04/07/23 20:30> ROS ED Constitutional Constitutional ED: Denies chills or fever(s) Cardiovascular Cardiovascular: Denies chest pain Respiratory/Chest Respiratory/Chest: Denies cough or dyspnea Gastrointestinal Gastrointestinal: Denies abdominal pain, nausea or vomiting Musculoskeletal Musculoskeletal: Denies arthralgias or myalgias Integumentary Denies Abrasions or rash Neurologic Neurologic: Denies weakness Psychiatric Psychiatric: Reports anxiety, depression, suicidal ideation and suicidal thoughts; Denies hallucinations or homicidal ideation Allergic/Immunologic Allergic/Immunologic ED: Denies lip swelling, mouth swelling or urticaria EXAM <EDELMIRA White - Last Filed: 04/07/23 20:30> Physical Exam Const Vital Signs: 04/07/23 16:02 04/07/23 16:01 04/07/23 19:00 Temperature 97.5 F L 97.5 F L Temperature Source Temporal Temporal Pulse Rate 120 H 120 H Respiratory Rate 18 18 18 Blood Pressure 153/97 H 153/97 H Blood Pressure Mean 115 115 Pulse Ox Oxygen Delivery Method Room Air 04/07/23 20:00 Temperature Temperature Source Pulse Rate 99 Respiratory Rate 20 H Blood Pressure 129/71 H Blood Pressure Mean 90 Pulse Ox 94 Oxygen Delivery Method Room Air Positive well nourished, well developed and no apparent distress General Appearance ED: well developed HEENT Reports normocephalic and head/scalp atraumatic Mouth ED: Yes moist mucous membranes normal Eyes PERRL and EOMs intact bilaterally Neck full ROM and supple Chest Wall inspection of chest normal Resp normal respiratory effort and clear to auscultation bilaterally Cardio regular rate and regular rhythm GI soft to palpation, non-tender, non-distended and no masses Back/Spine normal ROM and normal to inspection Extremity normal to inspection and full ROM Neuro oriented x3, CN's II-XII intact bilaterally, moves all extremities, no focal motor deficits and no sensory deficits noted Sensorium / Orientation: awake and alert Psych mental status grossly normal and cooperative Appearance: grossly normal Attitude: withdrawn Activity / Motor Behavior: avoids eye contact Mood & Affect: depressed, apathetic and flat affect Thought Content: suicidality Insight: poor Judgement: poor Skin no rashes or lesions noted and no wounds <Dr. Bridger Kamara DO - Last Filed: 04/07/23 21:29> Physical Exam Const Vital Signs: 04/07/23 16:02 04/07/23 16:01 04/07/23 19:00 Temperature 97.5 F L 97.5 F L Temperature Source Temporal Temporal Pulse Rate 120 H 120 H Respiratory Rate 18 18 18 Blood Pressure 153/97 H 153/97 H Blood Pressure Mean 115 115 Pulse Ox Oxygen Delivery Method Room Air 04/07/23 20:00 Temperature Temperature Source Pulse Rate 99 Respiratory Rate 20 H Blood Pressure 129/71 H Blood Pressure Mean 90 Pulse Ox 94 Oxygen Delivery Method Room Air MDM <EDELMIRA White - Last Filed: 04/07/23 20:30> MDM MDM Narrative Medical decision making narrative: Patient presenting due to suicidal thoughts that have been increasing over the past week. She does follow with crisis who encouraged her to come in for psychiatric placement. I do agree that patient would benefit from placement. Clearance labs will be obtained. Labs overall are unremarkable, she is medically cleared for psychiatric placement. Placement is pending. Lab Data Attestation: I reviewed the patient's lab results. Labs: Laboratory Results - last 24 hr 04/07/23 04/07/23 16:55 18:10 WBC 9.3 RBC 4.67 Hgb 12.7 Hct 40.4 MCV 86.5 MCH 27.2 MCHC 31.4 L RDW Std Deviation 43.9 RDW Coeff of Delmy 13.9 Plt Count 340 MPV 9.0 Immature Gran % (Auto) 0.400 Neut % (Auto) 66.2 Lymph % (Auto) 24.6 [place] % (Auto) 7.3 Eos % (Auto) 1.0 Baso % (Auto) 0.5 Absolute Neuts (auto) 6.1 Absolute Lymphs (auto) 2.28 Nucleated RBC % 0 Sodium 140 Potassium 3.8 Chloride 113 H Carbon Dioxide 23.0 Anion Gap 4 L BUN 11 Creatinine 0.70 Estim Creat Clear Calc 170.69 Est GFR (MDRD) Af Amer 130 Est GFR (MDRD) Non-Af 108 BUN/Creatinine Ratio 15.8 Glucose 122 H Calcium 9.4 Serum , Qual NEGATIVE Urine Opiates Screen NEGATIVE Urine Methadone Screen NEGATIVE Ur Barbiturates Screen NEGATIVE Ur Phencyclidine Scrn NEGATIVE Ur Amphetamines Screen NEGATIVE MDMA (Ecstasy) Screen NEGATIVE U Benzodiazepines Scrn NEGATIVE Urine Cocaine Screen NEGATIVE U Cannabinoids Screen NEGATIVE Ur Drug Screen Comment Ethyl Alcohol < 3.0 <Dr. Bridger Kamara DO - Last Filed: 04/07/23 21:29> [facility] Lab Data Labs: Laboratory Results - last 24 hr 04/07/23 04/07/23 16:55 18:10 WBC 9.3 RBC 4.67 Hgb 12.7 Hct 40.4 MCV 86.5 MCH 27.2 MCHC 31.4 L RDW Std Deviation 43.9 RDW Coeff of Delmy 13.9 Plt Count 340 MPV 9.0 Immature Gran % (Auto) 0.400 Neut % (Auto) 66.2 Lymph % (Auto) 24.6 [place] % (Auto) 7.3 Eos % (Auto) 1.0 Baso % (Auto) 0.5 Absolute Neuts (auto) 6.1 Absolute Lymphs (auto) 2.28 Nucleated RBC % 0 Sodium 140 Potassium 3.8 Chloride 113 H Carbon Dioxide 23.0 Anion Gap 4 L BUN 11 Creatinine 0.70 Estim Creat Clear Calc 170.69 Est GFR (MDRD) Af Amer 130 Est GFR (MDRD) Non-Af 108 BUN/Creatinine Ratio 15.8 Glucose 122 H Calcium 9.4 Serum , Qual NEGATIVE Urine Opiates Screen NEGATIVE Urine Methadone Screen NEGATIVE Ur Barbiturates Screen NEGATIVE Ur Phencyclidine Scrn NEGATIVE Ur Amphetamines Screen NEGATIVE MDMA (Ecstasy) Screen NEGATIVE U Benzodiazepines Scrn NEGATIVE Urine Cocaine Screen NEGATIVE U Cannabinoids Screen NEGATIVE Ur Drug Screen Comment Ethyl Alcohol < 3.0 Treatment and Re-Evaluation Narrative: ED attending note: I evaluated the patient in conjunction with the SHARON. I agree with his/her statements and above findings. I have personally performed a face to face assessment of the patient and have reviewed the SHARON Note. I performed a substantive portion of the visit including all aspects of the following. I personally saw the patient performed chart review, physical exam, reviewed labs, imaging (if obtained), and formulated a treatment and management plan. This note was generated with [employer] dictation software. It may contain incorrect words, spelling, and punctuation that were not noted in review of the chart prior to signing. Discharge Plan Triage Chief Complaint: Suicidal ED Midlevel Provider: Lianet Worrell ED Provider: Bridger Kamara Dx/Rx/DC Orders Clinical Impression: Suicidal ideations, Bipolar disorder Prescriptions: No Action Ajovy Autoinjector 225 mg/1.5 mL auto-injector 225 mg subcut QMONTH Patient Comments: PT STATES USES BETWEEN FIRST AND FIFTH OF EACH MONTH mecobalamin (vitamin B12) 1,000 mcg lozenge 1,000 mcg PO DAILY Rx Instructions: allow to dissolve in mouth OR may chew lightly before swallowing lithium carbonate 300 MG capsule 300 mg PO DAILY lithium carbonate 600 mg Capsule 600 mg PO QHS ferrous sulfate [FeroSul] 325 mg (65 mg iron) tablet 325 mg PO QODAY pantoprazole 40 mg Tablet,Delayed Release (Dr/Ec) 40 mg PO QHS imipramine HCl 25 mg tablet 25 mg PO DAILY cholecalciferol (vitamin D3) [Vitamin D3] 25 mcg (1,000 unit) tablet 25 mcg PO DAILY Aristada 441 mg/1.6 mL suspension,extended rel syring 441 mg IM .COMPLEX Rx Instructions: 441 mg intramuscularly Q28D; metoclopramide HCl [Reglan] 10 mg tablet 5 mg PO BID Qty: 28 11RF spironolactone 50 mg tablet See Rx Instructions .ROUTE .COMPLEX Qty: 60 6RF Dose Instruction: TAKE 1 TABLET BY MOUTH TWICE A DAY Rx Instructions: TAKE 1 TABLET BY MOUTH TWICE A DAY famotidine 40 mg tablet 40 mg PO BID Qty: 60 2RF budesonide 3 mg capsule,delayed,extend.release 3 mg PO DAILY 30 Days Qty: 30 3RF Patient Comments: PT STATES SHE IS UNSURE IF SHE IS STILL TAKING THIS MED Primary Care Provider: Naina Da Silva NP Referrals: Naina Da Silva NP, [facility] [Primary Care Provider] -
--- NOTE | 2023-04-07 16:30 | ED.RN ---
per EDELMIRA Worrell pt does not need a sitter at this time.
--- OUTSIDE RECORDS SUMMARY | 2023-04-07 16:31 | XMS RPT_ITS | CCD ---
Author Name Unknown Address [address] [place] [address] Organization [facility] [place] Care Team Providers Care Hotel Superintendent Name Role Phone ORLANDO VICENTE SR Unavailable Unavailable RAUL, ERNESTO Unavailable Unavailable RAUL, ERNESTO Unavailable Unavailable RAPACZ, DELMI Unavailable Unavailable RAPACZ, DELMI Unavailable Unavailable RAUL, ERNESTO Unavailable Unavailable MARSZALJONAH Unavailable Unavailable RAUL, ERNESTO Unavailable Unavailable RAUL, ERNESTO Unavailable Unavailable Mohan Pacheco Unavailable Unavailable Paola, Ernesto Unavailable Unavailable Raul, Ernesto Unavailable Unavailable XIOMARA MANCILLA Primary Care Physician Paola DO Ernesto D Unavailable Unavailab Crys Barraza Primary Care Provider Ernesto Carter DO Unavailable Unavailab Crys Barraza Primary Care Provider CRYS SALINAS Primary Care Unavailable CRYS SALINAS Primary Care Unavailable XIOMARA MANCILLA Primary Care Unavailab DR JUDSON Gonzales DO Attending Unavailable Allergies Allergy Classification Reported Allergen(s) Allergy Type Date of Onset Reaction(s) Facility (4 sources) escitalopram; Translations: [ESCITALOPRAM OXALATE] Drug Allergy 7 Mental Status Change [facility] Repository (1 source) lactase; Translations: [LACTASE] Drug Allergy 2 [facility] Repository (1 source) ondansetron; Translations: [ONDANSETRON HCL] Drug Allergy 7 [facility] (1 source) Seasonal allergy; Translations: [SEASONAL ALLERGIES] Propensity to adverse reactions (disorder) 3 [facility] Repository (1 source) GLUTEN MEAL; Translations: [GLUTEN MEAL] Propensity to adverse reactions to drug (disorder) 7 [facility] (1 source) Escitalopram; Translations: [escitalopram] Drug Allergy [facility] (1 source) Ondansetron; Translations: [ondansetron] Drug Allergy [facility] (3 sources) Ondansetron; Translations: [ONDANSETRON (PF) IN DEXTROSE] Drug Allergy 7 Swelling, GI Upset [facility] (3 sources) Tricyclic Compounds; Translations: [TRICYCLIC COMPOUNDS] Drug Intolerance 7 Other: See Comments [facility] (3 sources) Gluten Flour; Translations: [GLUTEN FLOUR] Food Intolerance 7 Diarrhea [facility] Medications Current Medications Medication Drug Class(es) Dates Sig (Normalized) Sig (Original) ARIPiprazole 15 mg oral tablet (3 sources) Atypical Antipsychotic Start: 12-14-2020 ARIPiprazole 15 mg oral tablet Dose : 7.5 mg = 0.5 tab(s), Oral, qDay, 0 Refill(s) Start Date: 12/14/20 Status: Ordered Completed/Discontinued Medications Medication Drug Class(es) Dates Sig (Normalized) Sig (Original) amitriptyline hydrochloride 25 mg oral tablet (1 source) Tricyclic Antidepressant Start: 12-12-2021 amitriptyline (ELAVIL) 25 mg tablet cetirizine hydrochloride 10 mg oral tablet (2 sources) Histamine-1 Receptor Antagonist Start: 02-12-2020 End: 12-12-2021 take 1 tablet by mouth once daily cetirizine (ZYRTEC) 10 mg tablet Take 10 mg by mouth once daily. 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 with aura, not intractable, without status migrainosus] Onset: 08-21-2016 08-21-2016 Chronic Mood disorders (2 sources) Bipolar disorder; Translations: [Bipolar disorder, unspecified] Onset: 05-20-2016 08-21-2016 Chronic Nausea and vomiting (1 source) Nausea and vomiting; Translations: [Nausea with vomiting, unspecified] Episodic Other endocrine disorders (1 source) Polycystic ovary syndrome; Translations: [Polycystic ovarian syndrome] Onset: 12-14-2020 Chronic Other female genital disorders (1 source) Abnormal uterine bleeding; Translations: [Abnormal uterine and vaginal bleeding, unspecified] Onset: 12-14-2020 Chronic Past or Other Problems Problem Classification Problem Date Documented Da te Episodic/Chronic Blindness and vision defects (10 sources) Diplopia; Translations: [Other subjective visual disturbances] Onset: 08-21-2016 08-21-2016 Episodic Headache; including migraine (2 sources) Daily headache; Translations: [Headache, chronic daily] Onset: 08-21-2016 08-21-2016 Episodic Results Test Name Value Interpretation Reference Range Facil ity Vital Signs Date Time Vital Sign Value Performing Clinician Facility 12-12-2021 16:21-0400 Body temperature 99 [degF] Mj Salcido MD Work Phone: [facility] 12-12-2021 16:21-0400 Body weight 130.64 kg Mj Salcido MD Work Phone: [facility] 12-12-2021 16:21-0400 Diastolic blood pressure 78 mm[Hg] Mj Salcido MD Work Phone: [facility] 12-12-2021 16:21-0400 Heart rate 120 /min Mj Salcido MD Work Phone: [facility] 12-12-2021 16:21-0400 Respiratory rate 18 /min Mj Salcido MD Work Phone: [facility] 12-12-2021 16:21-0400 SaO2% (BldA) [Mass fraction] 99 % Mj Salcido MD Work Phone: [facility] 12-12-2021 16:21-0400 Systolic blood pressure 118 mm[Hg] Mj Salcido MD Work Phone: [facility] 12-14-2020 20:47-0400 Heart rate 76 /min ERNESTO FROMGIOVANAT DO [facility] 12-14-2020 20:47-0400 Respiratory rate 18 /min ERNESTO FROMMELT DO [facility] 12-14-2020 18:35-0400 Body temperature 98.42 [degF] ERNESTO GARCIAMELT DO [facility] 12-14-2020 18:35-0400 Body weight 118.2 kg ERNESTO FROMMELT DO [facility] 12-14-2020 18:35-0400 Diastolic blood pressure 84 mm[Hg] ERNESTO FROMMELT DO [facility] 12-14-2020 18:35-0400 Heart rate 78 /min ERNESTO FROMMELT DO [facility] 12-14-2020 18:35-0400 Respiratory rate 18 /min ERNESTO FROMMELT DO [facility] 12-14-2020 18:35-0400 Systolic blood pressure 139 mm[Hg] ERNESTO FROMMELT DO [facility] Encounters Encounter Date Encounter Type Care Provider Facility Start: 12-04-2022 End: 12-04-2022 Emergency department patient visit XIOMARA PILLAI HADOOP DEVELOPER-EDUCATIONAL ADVISOR Facility: Start: 12-12-2021 End: 12-12-2021 ambulatory CRYS SALINAS Facility:[facility] Start: 12-12-2021 End: 12-12-2021 Patient encounter procedure Mj Salcido MD Work Phone: [facility] Procedures Date Procedure Procedure Detail Performing Clinician Spinal arthrodesis ERNESTO CLARK DO Plan of Treatment Date Care Activity Detail Author Start: 10-20-2021 Influenza vaccination INFLUENZA (#1) [facility] Start: 04-21-2021 COVID-19 VACCINE (3 - Booster for Pfizer series) COVID-19 VACCINE (3 - Booster for Pfizer series) [facility] Start: 02-19-2021 DEPRESSION ASSESSMENT DEPRESSION ASS ESSMENT [facility] Start: 01-16-2021 COVID-19 VACCINE (3 - Booster for Pfizer series) COVID-19 VACCINE (3 - Booster for Pfizer series) [facility] Start: 2017 PAP TESTING PAP TESTING [facility] Start: 10-25-2015 Urine microalbumin profile DTAP,TDAP ,TD (1 - Tdap) [facility] Start: 2014 HEPATITIS C SCREENING HEPATITIS C SC REENING [facility] Start: 2014 HIV SCREENING HIV SCREENING [facility] Start: 2010 PEDS TO ADULT TRANSI TION ANNUAL ASSESSMENT PEDS TO ADULT TRANSITION ANNUAL ASSESSMENT [facility] Start: 2008 Adult depression scr eening assessment DEPRESSION SCREENING [facility] Start: 2008 PEDS TO ADULT TRANSI TION INITIAL DISCUSSION PEDS TO ADULT TRANSITION INITIAL DISCUSSION [facility] Start: 10-25-2007 HPV VACCINE (1 - 2-d ose series) HPV VACCINE (1 - 2-dose series) [facility] Start: 2006 MENINGOCOCCAL B: Con burn center nurse based on risk (1 of 2 - Risk Bexsero 2-dose series) MENINGOCOCCAL B: Consider based on risk (1 of 2 - Risk Bexsero 2-dose series) [facility] Start: 1996 HEPATITIS B (1 of 3 - 3-dose series) HEPATITIS B (1 of 3 - 3-dose series) [facility] Payers Date Payer Category Payer Unknown [id number] 2020 Medicaid [facility] [id number] 2020-Present [phone] [address] [place] [address] Medicaid [id number] 2020 Medicaid [facility] [id number] 2020-Present [phone] [address] [place] [address] Medicaid [id number] 2020 Medicaid [id number] 1996 Unknown [id number] Private Health Insurance [id number] Private Health Insurance Social History Date Type Detail Facility Start: 08-21-2016 End: 12-12-2021 Never smoked tobacco (finding) [facility] Sex Assigned At [facility] Start: 08-21-2016 End: 12-12-2021 Tobacco use and exposure Smokeless tobacco non-user [facility] Start: 10-13-2020 End: 12-12-2021 Alcohol intake Current non-drinker of alcohol (finding) [facility] Start: 1995 Sex Assigned At Not on file [facility] Start: 08-24-2021 End: 09-03-2021 Exposure to SARS-CoV-2 (event) Not sure [facility] Progress note 12-12-2021 Note Date & Type Note Facility 12-12-2021 Note HNO ID: [id number] Author: Mj Salcido MD Service: ? Author Type: Physician Type: Progress Notes Filed: 12/12/2021 5:04 PM Note Text: Patient presents with: Dental Problem: right bottom tooth pain x 1 week HPI: Tooth pain: Duration: 1 week Location: gum below right lower tooth Character: aching, sharp, and throbbing Radiation: No. Aggravating: biting, brushing teeth Relieving: mouth rinse Pain relievers: Motrin and Tylenol Associated: pus Pertinent negatives: Denies fever MEDICATIONS: ferrous sulfate 325 mg (65 mg iron) tablet Take 325 mg by mouth. spironolactone (ALDACTONE) 50 mg tablet Take by mouth. SPRINTEC 0.25-35 mg-mcg per tablet Take 1 tablet by mouth once daily. lithium carbonate (ESKALITH) 300 mg capsule Take 300 mg by mouth twice daily. cholecalciferol, Vitamin D3, (VITAMIN D3) 1,250 mcg (50,000 unit) cap capsule Take 1 capsule by mouth one time a week. ARIPiprazole (ABILIFY) 15 mg tablet Take 7.5 mg by mouth once daily. hydrOXYzine pamoate (VISTARIL) 25 mg capsule amitriptyline (ELAVIL) [address] (PROTONIX) 20 mg tablet Take 1 tablet by mouth once daily. ALLERGIES: ALLERGIES Allergen Reactions Anti Depressants [T* Other: See Comments Patient states she must take anti-depressants with a mood stabilizer or else she becomes suicidal. Gluten Flour Diarrhea Lexapro [Escitalopr* Mental Status Change Zofran (Pf) In Dext* Swelling, GI Upset VITALS: BP 118/78 Pulse 120 Temp 37.2 ?C (99 ?F) Resp 18 Wt 130.6 kg (288 lb) SpO2 99% PHYSICAL EXAM: GEN: pleasant, no acute distress, alert HEENT: PERRL, EOMI, Mouth: moist mucus membranes. Leukoplakia on the gingiva below the right lower bicuspids. The 2nd bicuspid and 1st molar are tender to palpation. NECK: supple, no lymphadenopathy, no thyromegaly HEART: regular rate, regular rhythm, no murmurs LUNGS: clear to auscultation, no wheezes or crackles, no increased WOB ASSESSMENT/PLAN: 1. Dental infection - ICD9: 522.4, ICD10: K04.7 - PENICILLIN V POTASSIUM 500 MG TABLET Continue OTC analgesia. Follow up with dentist. Mj Salcido MD [facility] History of Present illness Narrative 12-12-2021 Mj Salcido MD - 12/12/2021 4:42 PM EDT Note Date & Type Note Facility 12-12-2021 History of Presen t illness Narrative Patient presents with: Dental Problem: right bottom tooth pain x 1 week HPI: Tooth pain: Duration: 1 week Location: gum below right lower tooth Character: aching, sharp, and throbbing Radiation: No. Aggravating: biting, brushing teeth Relieving: mouth rinse Pain relievers: Motrin and Tylenol Associated: pus Pertinent negatives: Denies fever MEDICATIONS: ferrous sulfate 325 mg (65 mg iron) tablet Take 325 mg by mouth. spironolactone (ALDACTONE) 50 mg tablet Take by mouth. SPRINTEC 0.25-35 mg-mcg per tablet Take 1 tablet by mouth once daily. lithium carbonate (ESKALITH) 300 mg capsule Take 300 mg by mouth twice daily. cholecalciferol, Vitamin D3, (VITAMIN D3) 1,250 mcg (50,000 unit) cap capsule Take 1 capsule by mouth one time a week. ARIPiprazole (ABILIFY) 15 mg tablet Take 7.5 mg by mouth once daily. hydrOXYzine pamoate (VISTARIL) 25 mg capsule amitriptyline (ELAVIL) [address] (PROTONIX) 20 mg tablet Take 1 tablet by mouth once daily. ALLERGIES: ALLERGIES Allergen Reactions Anti Depressants [T* Other: See Comments Patient states she must take anti-depressants with a mood stabilizer or else she becomes suicidal. Gluten Flour Diarrhea Lexapro [Escitalopr* Mental Status Change Zofran (Pf) In Dext* Swelling, GI Upset VITALS: BP 118/78 Pulse 120 Temp 37.2 C (99 F) Resp 18 Wt 130.6 kg (288 lb) SpO2 99% PHYSICAL EXAM: GEN: pleasant, no acute distress, alert HEENT: PERRL, EOMI, Mouth: moist mucus membranes. Leukoplakia on the gingiva below the right lower bicuspids. The 2nd bicuspid and 1st molar are tender to palpation. NECK: supple, no lymphadenopathy, no thyromegaly HEART: regular rate, regular rhythm, no murmurs LUNGS: clear to auscultation, no wheezes or crackles, no increased WOB ASSESSMENT/PLAN: 1. Dental infection - ICD9: 522.4, ICD10: K04.7 - PENICILLIN V POTASSIUM 500 MG TABLET Continue OTC analgesia. Follow up with dentist. Mj Salcido MD documented in this encounter [facility] Progress note 09-03-2021 Note Date & Type Note Facility 09-03-2021 Note HNO ID: [id number] Author: Mj Salcido MD Service: ? Author Type: Physician Type: Progress Notes Filed: 09/03/2021 10:48 AM Note Text: Express Care Triage Note: Patient presents to the [facility] with complaint of nausea, vomiting, and dizziness. She has been unable to eat for the last 5 days and has been unable to drink since yesterday. Patient is alert, flat affect, sitting in a wheelchair, and accompanied by her mother. ER treatment recommended for dehydration. [facility] History of Present illness Narrative 09-03-2021 Mj Salcido MD - 09/03/2021 10:42 AM EDT Note Date & Type Note Facility 09-03-2021 History of Presen t illness Narrative [facility] Triage Note: Patient presents to the [facility] with complaint of nausea, vomiting, and dizziness. She has been unable to eat for the last 5 days and has been unable to drink since yesterday. Patient is alert, flat affect, sitting in a wheelchair, and accompanied by her mother. ER treatment recommended for dehydration. documented in this encounter [facility] Discharge instructions 12-14-2020 Note Date & Type Note Facility 12-14-2020 Hospital Discharg e instructions Patient Education 12/14/2020 20:33:17 Polycystic Ovary Syndrome Polycystic Ovary Syndrome Polycystic ovary syndrome (PCOS) causes harmless, small cysts in the ovaries and other symptoms. PCOS is caused by certain hormones being out of balance. The word syndrome means a group of symptoms. Women with PCOS may have no periods, irregular periods, or very long periods. Your ovaries Women store their eggs in their ovaries. Each egg is in a capsule called a follicle. Normally during the reproductive years, one follicle grows to produce a mature egg each month. This egg is released during ovulation and the follicle dissolves. Hormones out of balance With polycystic ovary syndrome (PCOS), the hormones that control ovulation are out of balance. These include estrogen, progesterone, and androgen. As a result, ovulation may not occur. Instead, the follicle stays enlarged. This is a fluid-filled sac called a cyst. Over time, the ovaries fill with many small cysts. This is why they are called poly or many cystic ovaries. In some women, the ovaries also make too much androgen. Women with PCOS may also have one or more of these symptoms: Acne Hair growth on the face and other parts of the body Patches of thickened, velvety, darkened skin called acanthosis nigricans Trouble getting (fertility problems) Weight gain, especially around the waist Women with PCOS are also at increased risk of developing cancer of the uterine lining, diabetes, and heart disease. [id number] [employer]. [address] [place] [address]. All rights reserved. This information is not intended as a substitute for professional medical care. Always follow your healthcare professional's instructions. 12/14/2020 20:33:13 Dysfunctional Uterine Bleeding Dysfunctional Uterine Bleeding Dysfunctional uterine bleeding, also called abnormal uterine bleeding, is a condition in which bleeding is abnormal and occurs at unexpected times of the month. This happens because of changes in the hormones that help control a woman s menstrual cycle each month. The bleeding may be heavier or information technology consultant than normal. If you have heavy bleeding often, this can lead to a problem called anemia. With anemia, your red blood cell count is too low. Red blood cells help carry oxygen throughout your body. Severe anemia may cause you to look pale and feel very weak or tired. You might also become short of breath easily. To treat dysfunctional uterine bleeding, medicines are often tried first. If these don t help, or if you have additional symptoms or have reached menopause, further testing and treatments may be needed. Discuss all of your options with your provider. Home care Medicines If you re prescribed medicines, be sure to take them as directed. Some of the more common medicines you may be prescribed include: Hormone therapy (Options include most methods of hormonal control such as pills, shots, or a hormone-releasing IUD) Nonsteroidal anti-inflammatory drugs (NSAIDs), such as ibuprofen Iron supplements, if you have anemia General care Get plenty of rest if you tire easily. Avoid heavy exertion. To help relieve pain or cramping that may occur with bleeding, try using a heating pad on the lower belly or back. A warm bath may also help. Follow-up care Follow up with your healthcare provider, or as directed. When to seek medical advice Call your healthcare provider right away if: Bleeding becomes heavy (soaking 1 pad or tampon every hour for 3 hours) Increased abdominal pain Irregular bleeding worsens or does not get better even with treatment Fever of 100.4 F (38 C) or higher, or as directed by your provider Signs of anemia, such as pale skin, extreme fatigue or weakness, or shortness of breath Dizziness or fainting [id number] [employer]. [address] [place] [address]. All rights reserved. This information is not intended as a substitute for professional medical care. Always follow your healthcare professional's instructions. Follow Up Care 12/14/2020 18:23:00 With:ZEUS MEDLEY [facility] Address: [address] [place] [address]- When:1-2 days [facility] Evaluation + Plan note Note Date & Type Note Facility Evaluation + Plan note No data available for this section [facility] Evaluation note Note Date & Type Note Facility documented in this encounter [facility] Evaluation note Note Date & Type Note Facility documented in this encounter [facility] Summary Purpose Family History No Family History Records FoundNo Family History Records FoundNo Family History Records FoundNo Family History Records FoundNo Family History Records Found Advance Directives No Advanced Directives Records FoundNo Advanced Directives Records FoundNo Advanced Directives Records FoundNo Advanced Directives Records FoundNo Advanced Directives Records Found Additional Source Comments INFORMATION SOURCE (unrecogn ized section and content) DATE CREATED AUTHOR AUTHOR'S ORGANIZ ATION 08/14/[address] [facility] DATE CREATED AUTHOR AUTHOR'S ORGANIZ ATION 02/16/2021 [facility] DATE CREATED AUTHOR AUTHOR'S ORGANIZ ATION 12/14/2021 [facility] DATE CREATED AUTHOR AUTHOR'S ORGANIZ ATION 12/19/2022 [facility] Source Comments (unrecognize d section and content) In the event this informatio n is protected by the Federal Confidentiality of Alcohol and Drug Abuse Patient Records regulations: The Federal rules restrict any use of the information to criminally investigate or prosecute any alcohol or drug abuse patient.[facility] the event this information is protected by the Federal Confidentiality of Alcohol and Drug Abuse Patient Records regulations: The Federal rules restrict any use of the information to criminally investigate or prosecute any alcohol or drug abuse patient.[facility] Care Teams (unrecognized sec tion and content) Hotel Superintendent Relationship Specialty Start Date End Date Crys Salinas PCP - General Family Medicine 01/13/19 Ernesto Carter, DO Family Medicine 06/15/16 Reason for Visit (unrecogniz ed section and content) FOR RECORDS PERTAINING TO PATIENTS WHO ARE OR HAVE BEEN ENROLLED IN A CHEMICAL DEPENDENCY/SUBSTANCEABUSE PROGRAM, SOME INFORMATION MAY BE OMITTED. This clinical summary was aggregated from multiple sources. Caution should be exercised in using it in the provision of clinical care. This summary normalizes information from multiple sources, and as a consequence, information in this document may materially change the coding, format and clinical context of patient data. In addition, data may be omitted in some cases. CLINICAL DECISIONS SHOULD BE BASED ON THE PRIMARY CLINICAL RECORDS. [facility]. provides no warranty or guarantee of the accuracy or completeness of information in this document.
[2023-04-07 17:04] LABS: Absolute Lymphocyte Count 2.28 X10^3/uL (0.83-4.51); Absolute Neutrophil Count 6.1 X10^3/uL (2.0-7.7); Basophil# 0.05 X10^3/uL; Basophil% 0.5 % (0-1); Eosinophil# 0.09 X10^3/uL; Hematocrit 40.4 % (37-47); Hemoglobin 12.7 g/dL (12.0-15.0); Lymphocyte # 2.28 X10^3/ul (0.83-4.51); Lymphocyte % 24.6 % (19-41); Mean Corp Hgb Conc 31.4 g/dL (32-36); Mean Corpuscular Hgb 27.2 pg (27.0-32.0); Mean Corpuscular Volume 86.5 fL (81-99); Monocyte# 0.68 X10^3/uL; Monocyte% 7.3 % (0-10); NRBC Flagged by Analyzer 0 % (0-5); Neutrophil # 6.12 X10^3/uL (2.7-7.7); Neutrophil % 66.2 % (47-70); Platelet Count 340 K/mm3 (150-450); RBC Distribution Width CV 13.9 % (11.6-14.6); RBC Distribution Width SD 43.9 fl (35.1-43.9); Red Blood Count 4.67 M/mm3 (4.2-5.4); White Blood Count 9.3 K/mm3 (4.4-11.0)
[2023-04-07 17:16] LABS: Internal QC Validated? YES +Cl - CLEAR BKGD; Pregnancy, Serum, hCG Quali. NEGATIVE Negative
--- NOTE | 2023-04-07 17:19 | ED.RN ---
per EDELMIRA Worrell patient required to have a sitter because mom plans to leave. JIHAN Novoa in room with patient now.
[2023-04-07 17:20] LABS: Alcohol, Blood (Medical)-Serum < 3.0 mg/dL
[2023-04-07 17:21] LABS: Anion Gap 4 (5-15); BUN 11 mg/dL (7-18); BUN/Creat Ratio 15.8 RATIO (10-20); Calcium,Total 9.4 mg/dL (8.5-10.1); Chloride 113 mmol/L (98-107); EST Glomerular Filtration Rate 108 mL/min (>60); Est Glom Filt Rate - Afr Amer 130 mL/min (>60); Estimated Creatinine Clearance 170.69 ml/min; Glucose 122 mg/dL (74-106); Potassium 3.8 mmol/L (3.5-5.1); Sodium Level 140 mmol/L (136-145)
[2023-04-07 18:27] LABS: Amphetamine Urine VISTA NEGATIVE (<1000 ng/mL); Barbiturate Urine VISTA NEGATIVE (< 200 ng/mL); Benzodiazepine Urine VISTA NEGATIVE (< 200 ng/mL); Cocaine Urine VISTA NEGATIVE (< 300 ng/mL); Ecstacy Urine VISTA NEGATIVE (< 500 ng/mL); Methadone Urine VISTA NEGATIVE (< 300 ng/mL); PCP Urine VISTA NEGATIVE (< 25 ng/mL); THC Urine VISTA NEGATIVE (< 50 ng/mL); Vista UDS pH Range 5
--- NOTE | 2023-04-07 21:00 | ED.RN ---
[facility] CALLED WITH ACCEPTANCE OF PATIENT. REPORT GIVEN BY THIS RN AT THIS TIME.
[2023-04-07] MEDS: Lithium Carbonate 300mg Capsule 600 MG PO (21:19)
[2023-04-07] MEDS: Pantoprazole Sodium 40 MG Tablet PO (21:19)
[2023-04-08] VITALS (7 sets, daily range): BP systolic 143; BP diastolic 74; PULSE 94; RESP 16–18; TEMP 36.7; O2SAT 99
== END 2023-04-08 07:39 ==
PROVIDERS: Physician Assistant; Emergency Provider Emergency Medicine; PCP Nurse Practitioner Family; Visit Provider Emergency Medicine
DX: F31.9 Bipolar disorder, unspecified (principal); E11.9 Type 2 diabetes mellitus without complications; R45.851 Suicidal ideations; Z79.899 Other long term (current) drug therapy; K21.9 Gastro-esophageal reflux disease without esophagitis
CPT/HCPCS: 80048; 80307; 80320; 84703; 85025; 87635; 99284; G0480

== ENCOUNTER 2023-05-08 14:34 | Emergency (ER) | payer MEDICAID, SELFPAY ==
[2023-05-08] VITALS (9 sets, daily range): BP systolic 114–157; BP diastolic 69–100; PULSE 91–114; RESP 17–20; TEMP 36.3; O2SAT 98–100; BMI 45.3
--- NOTE | 2023-05-08 15:03 | CT_ITS ---
INDICATION: headache, dizzy EXAMINATION: CT BRAIN - CT Head or Brain W/O Contrast Injection TECHNIQUE: Multiple axial images were obtained of the head without intravenous contrast. A radiation dose optimization technique was used for this scan. IV Contrast dosage and agent: None. COMPARISON: 12/18/2022 FINDINGS: BRAIN PARENCHYMA: No intra- or extra-axial hemorrhage. No evidence of acute infarct. No intracranial mass or mass effect. There is preservation of the ching/white matter interface. Posterior fossa structures are unremarkable. CSF SPACES: Appropriate for age. No hydrocephalus. Basal cisterns are patent. CALVARIUM, SKULL BASE, PARANASAL SINUSES AND MASTOID AIR CELLS: Clear. No discrete lytic or blastic abnormalities. ORBITS: Both globes, extraocular muscles, optic nerves and retrobulbar fat appear unremarkable. CT/Brain/Head without Contrast IMPRESSION: No acute intracranial findings. Electronically Signed: Lopez Urrutia MD at 15:56 EDT ,
--- NOTE | 2023-05-08 15:03 | EKG12_ITS ---
Test Reason : NEURO Blood Pressure : / mmHG Vent. Rate : 098 BPM Atrial Rate : 098 BPM P-R Int : 154 ms QRS Dur : 076 ms QT Int : 358 ms P-R-T Axes : 029 -04 003 degrees QTc Int : 457 ms Normal sinus rhythm Minimal voltage criteria for LVH, may be normal variant ( R in aVL ) Cannot rule out Anterior infarct , age undetermined Abnormal ECG Confirmed by Marco Bartlett ([id number]), editor greeting card SATYA FRANKLIN ([id number]) on 05/10/2023 11:01:54 AM Referred By: Confirmed By:Marco Bartlett
--- NOTE | 2023-05-08 15:05 | EX.ED.DYSGE1 ---
HPI History of Present Illness Chief Complaint: Neuro S/Sx Detail of Chief Complaint: Migraine and dizziness Informant: patient Onset/Context/Timing Onset: Days (4 days) Context: Gradual Onset Timing: Waxes and wanes Narrative Narrative: Patient presents with a 4-day history of headache and dizziness. She does have a history of migraines and states this headache feels similar but not exactly like her typical migraine. She states the pain is right behind her eyes, right greater than left. No recent head injury. Patient describes her dizziness as both lightheadedness as well as vertigo. She has been taking Antivert without improvement. She reports periods of near syncope as well as a temperature of 104 a few days ago. She reports cough with nausea and diarrhea. [facility] Medical History Anxiety Arthritis Autism Back pain Bipolar 1 disorder Bipolar disorder Cellulitis Cirrhosis Depression Depression with anxiety Diabetes Dietary restriction GERD (gastroesophageal reflux disease) Heartburn History of echocardiogram IBS (irritable bowel syndrome) Irregular heart beat Kidney stones Migraine headache Migraines Non-smoker Obesity PCOS (polycystic ovarian syndrome) Syncope Wears glasses Home Medications lithium carbonate 300 mg capsule 300 mg PO DAILY Bipolar 04/05/17 [History Last Taken 12/18/22] ferrous sulfate 325 mg (65 mg iron) tablet (FeroSul) 325 mg PO QODAY supplement 01/24/22 [History Last Taken 12/16/22] lithium carbonate 600 mg capsule 600 mg PO QHS mental health 01/24/22 [History Last Taken 12/17/22] metoclopramide HCl 10 mg tablet (Reglan) 5 mg (1/2 x 10 mg) PO BID nausea and vomiting #28 tabs 06/21/22 [Rx Last Taken 12/18/22] fremanezumab-vfrm 225 mg/1.5 mL subcutaneous auto-injector (Ajovy) 225 mg subcut QMONTH migraine 10/03/22 [History Last Taken 11/21/22] spironolactone 50 mg tablet See Rx Instructions .Route .COMPLEX diuretic #60 TABLETS 11/01/22 [Rx Last Taken 12/18/22] aripiprazole lauroxil 441 mg/1.6 mL suspension, ext.rel. IM syringe (Aristada) 441 mg IM .COMPLEX mental health 12/18/22 [History Last Taken 12/18/22] cholecalciferol (vitamin D3) 25 mcg (1,000 unit) tablet (Vitamin D3) 25 mcg PO DAILY vitamin 12/18/22 [History Last Taken 12/17/22] imipramine HCl 25 mg tablet 25 mg PO DAILY mental health 12/18/22 [History Last Taken 12/17/22] budesonide 3 mg capsule,delayed,extended release 3 mg PO DAILY 30 days #30 ea 02/21/23 [Rx Last Taken Unknown] mecobalamin (vitamin B12) 1,000 mcg lozenges 1,000 mcg PO DAILY 03/20/23 [History Last Taken Unknown] famotidine 40 mg tablet 40 mg PO BID reflux #60 tabs 04/18/23 [Rx Last Taken Unknown] Allergy/AdvReac Type Severity Reaction Status Date / Time metformin Allergy Mild Nausea/Vom/ Verified 05/08/23 14:36 Diarrhea pollen extracts Allergy Hives Verified 05/08/23 14:36 escitalopram [From Lexapro] AdvReac Other Verified 05/08/23 14:36 lactase [From Dairy Aid] AdvReac Upset Verified 05/08/23 14:36 Stomach ondansetron AdvReac Anaphylaxis Verified 05/08/23 14:36 [From Zofran (as hydrochloride)] Family History Mother Uterine cancer Other Asthma Depression Diabetes GERD (gastroesophageal reflux disease) Heart disease Hyperlipidemia Hypertension Surgical History H/O knee surgery H/O spinal fusion History of colonoscopy History of esophagogastroduodenoscopy (EGD) History of tonsillectomy and adenoidectomy Social History household members: none housing: apartment current occupational status: unemployed history of recent travel: No Smoking Status: Never smoker alcohol intake: current alcohol intake frequency: holidays/special occasions only substance use type: does not use what type of physical activity do you participate in: walking frequency: daily seatbelt use: always do you feel safe at home: Yes additional social history: single ROS ROS ED Constitutional Constitutional ED: Reports chills and fever(s) Eyes Eyes: Reports blurry vision; Denies discharge from eye(s) ENT ENT ED: Denies discharge from eye(s), rhinorrhea or sore throat Cardiovascular Cardiovascular: Denies chest pain or palpitations Respiratory/Chest Respiratory/Chest: Reports cough; Denies dyspnea Gastrointestinal Gastrointestinal: Reports diarrhea and nausea; Denies abdominal pain or vomiting Genitourinary Genitourinary ED: Denies dysuria Musculoskeletal Musculoskeletal: Denies back pain or extremity pain Integumentary Denies Abrasions or rash Neurologic Neurologic: Reports headache(s) and weakness Psychiatric Psychiatric: Denies anxiety or depression Allergic/Immunologic Allergic/Immunologic ED: Denies lip swelling or urticaria EXAM Physical Exam Const Vital Signs: 05/08/23 14:34 Temperature 97.4 F L Temperature Source Temporal Pulse Rate 114 H Respiratory Rate 17 Blood Pressure 143/100 H Blood Pressure Mean 114 Pulse Ox 100 Oxygen Delivery Method Room Air Positive well nourished and well developed General Appearance ED: well developed HEENT Reports moist mucous membranes Eyes EOMs intact bilaterally Chest Wall inspection of chest normal and palpation of chest normal Resp normal respiratory effort and clear to auscultation bilaterally Cardio regular rate and regular rhythm GI non-tender Palpation: soft Extremity normal to inspection Neuro oriented x3 and no sensory deficits noted Motor Exam: strength 5/5 throughout Psych mental status grossly normal Skin no rashes or lesions noted MDM MDM MDM Narrative Medical decision making narrative: Patient placed on environmental monitoring specialist. EKG obtained to evaluate for cardiac arrhythmia/ischemia. IV line established. Labwork obtained to evaluate for leukocytosis, anemia, and electrolyte derangement. Swab for COVID, influenza, and RSV will be obtained. Chest x-ray obtained to evaluate for acute lung pathology, cardiac size, or mediastinal abnormality. Patient be given Toradol, Compazine, Benadryl, and IV fluids. History & Record Review Discussion w/independent historian: Patient and Family Additional record(s) reviewed:: Prior ED visit and Prior labs Lab Data Attestation: I reviewed the patient's lab results. Labs: Laboratory Results - last 24 hr 05/08/23 05/08/23 14:50 15:12 WBC 11.2 H RBC 5.06 Hgb 13.6 Hct 44.5 MCV 87.9 MCH 26.9 L MCHC 30.6 L RDW Std Deviation 46.1 H RDW Coeff of Delmy 14.3 Plt Count 408 MPV 9.6 Immature Gran % (Auto) 0.400 Neut % (Auto) 67.0 Lymph % (Auto) 23.6 Leslie % (Auto) 6.8 Eos % (Auto) 1.7 Baso % (Auto) 0.5 Absolute Neuts (auto) 7.5 Absolute Lymphs (auto) 2.64 Nucleated RBC % 0 Sodium 141 Potassium 3.8 Chloride 107 Carbon Dioxide 26.0 Anion Gap 8 BUN 14 Creatinine 0.74 Estim Creat Clear Calc 157.46 Est GFR (MDRD) Af Amer 122 Est GFR (MDRD) Non-Af 100 BUN/Creatinine Ratio 18.9 Glucose 105 Calcium 9.1 Total Bilirubin 0.40 Direct Bilirubin 0.11 AST 16 ALT 39 Alkaline Phosphatase 66 Total Protein 7.9 Albumin 3.5 Globulin 4.4 H Serum , Qual NEGATIVE [place] 0.70 Radiography Chest X-Ray - ED: 1 View, Read by ED Physician, Chronic Changes and No Infiltrates Diagnostic Testing: Clinical Impression(s) from Imaging Studies Brain CT 05/08/23 15:03 IMPRESSION: No acute intracranial findings. Electronically Signed: Lopez Urrutia MD at 15:56 EDT , Chest X-Ray 05/08/23 15:32 IMPRESSION: No radiographic evidence of acute cardiopulmonary disease. Electronically Signed: Ozzy Uriostegui MD at 16:03 EDT , EKG Initial EKG: Attestation: I personally reviewed and interpreted this EKG as follows: Interpretation: Sinus Rhythm (Sinus at 98 with no acute ischemia.) Treatment and Re-Evaluation :: CBC was a white count 11.2 with normal differential. Hemoglobin is 13.6. Chemistry studies and LFTs unremarkable. [place] level is therapeutic at 0.70. test negative. CT scan of the head reveals no acute intracranial findings. Chest x-ray per my interpretation was chronic changes with no focal infiltrate. Radiology interpretation reviewed and agrees. EKG is sinus rhythm at 98 with no evidence of ischemia. On repeat evaluation patient does report her headache is improved. Test results are discussed with she as well as family at bedside. She will be discharged home to continue supportive care. Return instructions given. Discharge Plan Triage Chief Complaint: Neuro S/Sx ED Provider: Sarah Purdy Dx/Rx/DC Orders Clinical Impression: Migraine, Viral syndrome Instructions: ED, Migraine (Classical), ED Viral Syndrome (Adult) Prescriptions: No Action Ajovy Autoinjector 225 mg/1.5 mL auto-injector 225 mg subcut QMONTH Patient Comments: PT STATES USES BETWEEN FIRST AND FIFTH OF EACH MONTH mecobalamin (vitamin B12) 1,000 mcg lozenge 1,000 mcg PO DAILY Rx Instructions: allow to dissolve in mouth OR may chew lightly before swallowing lithium carbonate 300 MG capsule 300 mg PO DAILY lithium carbonate 600 mg Capsule 600 mg PO QHS ferrous sulfate [FeroSul] 325 mg (65 mg iron) tablet 325 mg PO QODAY imipramine HCl 25 mg tablet 25 mg PO DAILY cholecalciferol (vitamin D3) [Vitamin D3] 25 mcg (1,000 unit) tablet 25 mcg PO DAILY Aristada 441 mg/1.6 mL suspension,extended rel syring 441 mg IM .COMPLEX Rx Instructions: 441 mg intramuscularly Q28D; metoclopramide HCl [Reglan] 10 mg tablet 5 mg PO BID Qty: 28 11RF spironolactone 50 mg tablet See Rx Instructions .ROUTE .COMPLEX Qty: 60 6RF Dose Instruction: TAKE 1 TABLET BY MOUTH TWICE A DAY Rx Instructions: TAKE 1 TABLET BY MOUTH TWICE A DAY budesonide 3 mg capsule,delayed,extend.release 3 mg PO DAILY 30 Days Qty: 30 3RF Patient Comments: PT STATES SHE IS UNSURE IF SHE IS STILL TAKING THIS MED famotidine 40 mg tablet 40 mg PO BID Qty: 60 2RF Primary Care Provider: Naina Da Silva NP Referrals: Naina Da Silva NP, [facility] [Primary Care Provider] - 1 Week if not improving Disposition Disposition: Home, Self Care
--- NOTE | 2023-05-08 15:16 | ED.RN ---
Informed pt RN about findings in triage.
[2023-05-08] MEDS: 0.9% Normal Saline (1000mL) 1,000 ML 1000 ML IV (15:19)
[2023-05-08] MEDS: DiphenhydrAMINE 50 MG/ML Syringe 25 MG IV (15:20)
[2023-05-08] MEDS: Ketorolac 30 MG/ML Syringe IV (15:21)
[2023-05-08] MEDS: proCHLORPERazine 10 MG/2 ML Vial 5 MG IV (15:22)
[2023-05-08 15:25] LABS: Absolute Lymphocyte Count 2.64 X10^3/uL (0.83-4.51); Absolute Neutrophil Count 7.5 X10^3/uL (2.0-7.7); Basophil# 0.06 X10^3/uL; Basophil% 0.5 % (0-1); Eosinophil# 0.19 X10^3/uL; Eosinophils% 1.7 % (0-5); Hematocrit 44.5 % (37-47); Hemoglobin 13.6 g/dL (12.0-15.0); Lymphocyte # 2.64 X10^3/ul (0.83-4.51); Lymphocyte % 23.6 % (19-41); Mean Corp Hgb Conc 30.6 g/dL (32-36); Mean Corpuscular Hgb 26.9 pg (27.0-32.0); Mean Corpuscular Volume 87.9 fL (81-99); Mean Platelet Vol. 9.6 fl (6.2-12.0); Monocyte# 0.76 X10^3/uL; Monocyte% 6.8 % (0-10); NRBC Flagged by Analyzer 0 % (0-5); Platelet Count 408 K/mm3 (150-450); RBC Distribution Width CV 14.3 % (11.6-14.6); RBC Distribution Width SD 46.1 fl (35.1-43.9); Red Blood Count 5.06 M/mm3 (4.2-5.4); White Blood Count 11.2 K/mm3 (4.4-11.0)
--- NOTE | 2023-05-08 15:32 | RAD_ITS ---
INDICATION: cough EXAMINATION/TECHNIQUE: X-RAY - XR Chest 1 View COMPARISON: Prior study dated: 12/18/2022 FINDINGS: LINES/DEVICES: None. LUNGS: No consolidation, edema or effusion. No pneumothorax. MEDIASTINUM AND CARDIOVASCULAR STRUCTURES: Cardiac silhouette not enlarged. Central airways and mediastinal contour are unremarkable. BONES AND SOFT TISSUES: Fusion of the lower thoracic and upper lumbar spine with rods and screws. RAD/Chest 1 View (Portable) IMPRESSION: No radiographic evidence of acute cardiopulmonary disease. Electronically Signed: Ozzy Uriostegui MD at 16:03 EDT ,
[2023-05-08 15:41] LABS: Internal QC Validated? YES +Cl - CLEAR BKGD; Pregnancy, Serum, hCG Quali. NEGATIVE Negative
[2023-05-08 15:44] LABS: AST(SGOT) 16 U/L (15-37); Alanine Aminotransfer ALT/SGPT 39 U/L (13-56); Albumin, Serum 3.5 g/dL (3.2-5.0); Alkaline Phosphatase 66 U/L (45-117); Anion Gap 8 (5-15); BUN 14 mg/dL (7-18); BUN/Creat Ratio 18.9 RATIO (10-20); Bilirubin, Direct 0.11 mg/dL (0.00-0.30); Calcium,Total 9.1 mg/dL (8.5-10.1); Chloride 107 mmol/L (98-107); Creatinine, Serum 0.74 mg/dL (0.55-1.02); EST Glomerular Filtration Rate 100 mL/min (>60); Est Glom Filt Rate - Afr Amer 122 mL/min (>60); Estimated Creatinine Clearance 157.46 ml/min; Globulin 4.4 g/dL (2.2-4.2); Glucose 105 mg/dL (74-106); Potassium 3.8 mmol/L (3.5-5.1); Protein, Total 7.9 g/dL (6.4-8.2); Sodium Level 141 mmol/L (136-145)
[2023-05-08] MEDS: 0.9% Normal Saline (1000mL) 1,000 ML 150 ML IV (16:16)
== END 2023-05-08 16:49 | disposition home or self-care (01) ==
PROVIDERS: Emergency Provider Emergency Medicine; PCP Nurse Practitioner Family; Visit Provider Emergency Medicine
DX: G43.909 Migraine, unspecified, not intractable, without status migrainosus (principal); F31.9 Bipolar disorder, unspecified; E11.9 Type 2 diabetes mellitus without complications; K21.9 Gastro-esophageal reflux disease without esophagitis; Z79.899 Other long term (current) drug therapy; B34.9 Viral infection, unspecified; R11.0 Nausea; R50.9 Fever, unspecified
CPT/HCPCS: 70450; 71045; 80048; 80076; 80178; 84703; 85025; 87631; 93005; 96361; 96374; 96375; 99284; J7030; A4216

== ENCOUNTER 2023-06-03 20:24 | Emergency (ER) | payer MEDICAID, SELFPAY ==
[2023-06-03 20:26] VITALS: BP 131/76; PULSE 109; RESP 18; TEMP 36.6; O2SAT 100; BMI 47.7
--- NOTE | 2023-06-03 20:45 | EKG12_ITS ---
Test Reason : Blood Pressure : / mmHG Vent. Rate : 100 BPM Atrial Rate : 100 BPM P-R Int : 144 ms QRS Dur : 076 ms QT Int : 352 ms P-R-T Axes : 011 -02 -06 degrees QTc Int : 454 ms Normal sinus rhythm Minimal voltage criteria for LVH, may be normal variant ( R in aVL ) Borderline ECG Confirmed by RELL VARGAS, FOZIA ([id number]), news video editor NAILA VILLANUEVA ([id number]) on 06/05/2023 8:19:45 AM Referred By: Confirmed By:FOZIA ZACARIAS MD
--- NOTE | 2023-06-03 20:55 | EDS_ITS ---
HPI <HORTENSIA Sunshine - Last Filed: 06/03/23 21:56> History of Present Illness Chief Complaint: Chest Pain Narrative Narrative: Patient is a 27-year-old female with history of bipolar disorder, anxiety, depression, severe obesity, hyperlipidemia, hypertension who presents to the emergency department with worsening 2 weeks of chest pain. Patient states that her pain is worse with ambulation and movement, she has release patient denies any nausea or vomiting. Patient states that she does have decrease of pain when she lays on her left side. Patient states this does make her feel short of breath. She does have history of asthma. She currently does have a cardiology appointment however that has not until June 26, 2023. PFS <HORTENSIA Sunshine - Last Filed: 06/03/23 21:56> [facility] Medical History Anxiety Arthritis Autism Back pain Bipolar 1 disorder Bipolar disorder Cellulitis Cirrhosis Depression Depression with anxiety Diabetes Dietary restriction GERD (gastroesophageal reflux disease) Heartburn History of echocardiogram IBS (irritable bowel syndrome) Irregular heart beat Kidney stones Migraine headache Migraines Non-smoker Obesity PCOS (polycystic ovarian syndrome) Syncope Wears glasses Home Medications lithium carbonate 300 mg capsule 300 mg PO DAILY Bipolar 04/05/17 [History Last Taken 12/18/22] ferrous sulfate 325 mg (65 mg iron) tablet (FeroSul) 325 mg PO QODAY supplement 01/24/22 [History Last Taken 12/16/22] lithium carbonate 600 mg capsule 600 mg PO QHS mental health 01/24/22 [History Last Taken 12/17/22] fremanezumab-vfrm 225 mg/1.5 mL subcutaneous auto-injector (Ajovy) 225 mg subcut QMONTH migraine 10/03/22 [History Last Taken 11/21/22] aripiprazole lauroxil 441 mg/1.6 mL suspension, ext.rel. IM syringe (Aristada) 441 mg IM .COMPLEX mental health 12/18/22 [History Last Taken 05/06/23] cholecalciferol (vitamin D3) 25 mcg (1,000 unit) tablet (Vitamin D3) 25 mcg PO DAILY vitamin 12/18/22 [History Last Taken 12/17/22] imipramine HCl 25 mg tablet 25 mg PO DAILY mental health 12/18/22 [History Last Taken 12/17/22] mecobalamin (vitamin B12) 1,000 mcg lozenges 1,000 mcg PO DAILY 03/20/23 [History Last Taken Unknown] famotidine 40 mg tablet 40 mg PO BID reflux #60 tabs 04/18/23 [Rx Last Taken Unknown] spironolactone 50 mg tablet See Rx Instructions .Route .COMPLEX diuretic #60 TABLETS 05/16/23 [Rx Last Taken Unknown] metoclopramide HCl 10 mg tablet (Reglan) 5 mg (1/2 x 10 mg) PO BID nausea and vomiting #28 tabs 05/28/23 [Rx Last Taken Unknown] pantoprazole 40 mg tablet,delayed release 40 mg PO DAILY 06/03/23 [History Last Taken Unknown] simvastatin 20 mg tablet 20 mg PO QHS 06/03/23 [History Last Taken Unknown] Allergy/AdvReac Type Severity Reaction Status Date / Time metformin Allergy Mild Nausea/Vom/ Verified 06/03/23 20:25 Diarrhea pollen extracts Allergy Hives Verified 06/03/23 20:25 escitalopram [From Lexapro] AdvReac Other Verified 06/03/23 20:25 lactase [From Dairy Aid] AdvReac Upset Verified 06/03/23 20:25 Stomach ondansetron AdvReac Anaphylaxis Verified 06/03/23 20:25 [From Zofran (as hydrochloride)] Family History Mother Uterine cancer Other Asthma Depression Diabetes GERD (gastroesophageal reflux disease) Heart disease Hyperlipidemia Hypertension Surgical History H/O knee surgery H/O spinal fusion History of colonoscopy History of esophagogastroduodenoscopy (EGD) History of tonsillectomy and adenoidectomy Social History household members: none housing: apartment current occupational status: unemployed history of recent travel: No Smoking Status: Never smoker alcohol intake: current alcohol intake frequency: holidays/special occasions only substance use type: does not use what type of physical activity do you participate in: walking frequency: daily seatbelt use: always do you feel safe at home: Yes additional social history: single ROS <HORTENSIA Sunshine - Last Filed: 06/03/23 21:56> ROS ED ROS Narrative Constitutional: Negative for fever, chills, weight loss, weakness Eyes: Negative for vision loss, vision change, double vision ENT: Negative for any sore throat, ear pain, congestion Cardiovascular: Negative for any palpitations. Positive chest pain, chest tightness Respiratory: Negative for any cough, sputum production, hemoptysis,orthopnea. Positive for dyspnea, dyspnea on exertion Gastrointestinal: Negative for any abdominal pain, nausea, vomiting, diarrhea, constipation, blood in stool, blood in vomit : Negative for any urinary frequency, dysuria, retention, blood in urine Muscle skeletal: Negative for any neck pain, back pain Neurological: Negative for any headache, syncope, dizziness Skin: Negative for any rashes, itching, abrasions, lacerations Psychiatric: Negative for any depression, anxiety, stress, suicidal ideation, homicidal ideation Hematologic: Negative for any excessive bruising, easy bleeding EXAM <HORTENSIA Sunshine - Last Filed: 06/03/23 21:56> Physical Exam Narrative Exam Narrative: Vital signs reviewed. Patient is significantly obese, she is alert and orient x 4. Patient was slightly tachycardic at a rate of 107 bpm, the remainder of the other vital signs are stable. HEET: Head normocephalic atraumatic, TMs clear bilaterally. Posterior pharynx is clear, moist mucous membranes. Nares clear bilaterally. Neck: Supple with no lymphadenopathy or tenderness. No signs of meningismus. Cardiac: Regular rate and rhythm no murmurs gallops or rubs, equal peripheral pulses bilaterally. Respiratory: Lungs clear to auscultation bilaterally. Difficult secondary to body habitus no chest tenderness. Abdomen: Soft, nontender, nondistended. No abdominal bruit or pulsatile masses. No hepatosplenomegaly Extremities: No peripheral edema, no signs of gross trauma or deformity. Active full range of motion of all extremities. Neuro: Cranial nerves II through XII intact, no focal neurological deficits. Skin: Clean dry and intact with no rash, purpura, petechiae, vesicles or pustules. Backs/flank: No CVA tenderness, no midline spinal tenderness, no deformity. Psych: Normal mood and affect. No SI, HI or acute psychosis. Const Vital Signs: 06/03/23 20:26 06/03/23 21:03 06/03/23 22:04 Temperature 97.8 F 97 F L Temperature Source Temporal Pulse Rate 109 H 102 H Respiratory Rate 18 16 Blood Pressure 131/76 H 120/72 Blood Pressure Mean 94 88 Pulse Ox 100 96 Oxygen Delivery Method Room Air Positive obese Nutritional Appearance: obese <Rodolfo Das MD - Last Filed: 06/03/23 22:36> Physical Exam Const Vital Signs: 06/03/23 20:26 06/03/23 21:03 06/03/23 22:04 Temperature 97.8 F 97 F L Temperature Source Temporal Pulse Rate 109 H 102 H Respiratory Rate 18 16 Blood Pressure 131/76 H 120/72 Blood Pressure Mean 94 88 Pulse Ox 100 96 Oxygen Delivery Method Room Air MDM <HORTENSIA Sunshine - Last Filed: 06/03/23 21:56> MDM Lab Data Labs: Laboratory Results - last 24 hr 06/03/23 20:50 WBC 11.2 H RBC 4.62 Hgb 12.9 Hct 39.9 MCV 86.4 MCH 27.9 MCHC 32.3 RDW Std Deviation 44.7 H RDW Coeff of Delmy 14.1 Plt Count 382 MPV 9.0 Immature Gran % (Auto) 0.300 Neut % (Auto) 62.4 Lymph % (Auto) 27.2 [place] % (Auto) 8.1 Eos % (Auto) 1.5 Baso % (Auto) 0.5 Absolute Neuts (auto) 7.0 Absolute Lymphs (auto) 3.04 Nucleated RBC % 0 D-Dimer Quant (PE/DVT) < 0.27 L Sodium 140 Potassium 3.9 Chloride 108 H Carbon Dioxide 25.0 Anion Gap 7 BUN 13 Creatinine 0.74 Estim Creat Clear Calc 162.22 Est GFR (MDRD) Af Amer 121 Est GFR (MDRD) Non-Af 100 BUN/Creatinine Ratio 17.4 Glucose 99 Calcium 9.0 Troponin I High Sens 4 TSH 4.01 H Radiography Diagnostic Testing: Clinical Impression(s) from Imaging Studies Chest X-Ray 06/03/23 21:05 IMPRESSION: No active disease. Electronically Signed: Vinay Plaza MD at 21:29 EDT , Treatment and Re-Evaluation :: Differential diagnosis includes however is not limited to: ACS, TN, pulmonary embolus, pleural effusion, pericarditis. Patient appears to be in no obvious respiratory distress vital signs are stable. Patient presents to the emergency department with complaints of chest. Pressure and shortness of breath slightly worse over the last 2 weeks, much worse in the last 24 to 48 hours. Patient received a full cardiac workup including troponin, D-dimer, chest x-ray. Patient be given IV fluids. Patient will be reevaluated. All radiologic examinations were read, reviewed by the emergency department attending. From these reads, a plan of care will be put in place. Patient's CBC showed a leukocytosis with a reticulocyte count 11.2, remainder the CBC was normal. Patient's D-dimer was negative, patient's troponin was negative, TSH was slightly elevated at 4.01, patient is on medication. Patient's chloride was 108, the remainder was unremarkable. EKG was unremarkable. At this time, patient has no signs or symptoms of ACS, TN, pulmonary embolus. At this time, patient will continue to follow-up outpatient. Patient will follow-up outpatient with cardiology. <Rodolfo Das MD - Last Filed: 06/03/23 22:36> [facility] Narrative Medical decision making narrative: Dr. Das: I have personally performed a face to face assessment of the patient and have reviewed the SHARON Note. I performed a substantive portion of the visit including all aspects of the following. My christianson findings include: History is chest pain Exam is afebrile. Vital signs noted. Regular rate and rhythm. Lungs clear to auscultation bilaterally. Abdomen soft and nontender with normoactive bowel sounds. Medical Decision Making: EKG obtained and interpreted by myself independently. On my independent interpretation it demonstrates normal sinus rhythm at 100 bpm without ectopy or acute ST changes. No STEMI. Chest x-ray 1 view interpreted by myself independently shows no evidence of an acute process. I reviewed the radiology report which confirms my independent interpretation. Her D-dimer is negative along with her troponin. 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 Disposition is discharged home in stable condition. Other additions or changes: [None] Lab Data Attestation: I reviewed the patient's lab results. Labs: Laboratory Results - last 24 hr 06/03/23 20:50 WBC 11.2 H RBC 4.62 Hgb 12.9 Hct 39.9 MCV 86.4 MCH 27.9 MCHC 32.3 RDW Std Deviation 44.7 H RDW Coeff of Delmy 14.1 Plt Count 382 MPV 9.0 Immature Gran % (Auto) 0.300 Neut % (Auto) 62.4 Lymph % (Auto) 27.2 [place] % (Auto) 8.1 Eos % (Auto) 1.5 Baso % (Auto) 0.5 Absolute Neuts (auto) 7.0 Absolute Lymphs (auto) 3.04 Nucleated RBC % 0 D-Dimer Quant (PE/DVT) < 0.27 L Sodium 140 Potassium 3.9 Chloride 108 H Carbon Dioxide 25.0 Anion Gap 7 BUN 13 Creatinine 0.74 Estim Creat Clear Calc 162.22 Est GFR (MDRD) Af Amer 121 Est GFR (MDRD) Non-Af 100 BUN/Creatinine Ratio 17.4 Glucose 99 Calcium 9.0 Troponin I High Sens 4 TSH 4.01 H Radiography Chest X-Ray - ED: Read by ED Physician Diagnostic Testing: Clinical Impression(s) from Imaging Studies Chest X-Ray 06/03/23 21:05 IMPRESSION: No active disease. Electronically Signed: Vinay Plaza MD at 21:29 EDT , Discharge Plan Triage Chief Complaint: Chest Pain ED Midlevel Provider: Presley Ibarra ED Provider: Rodolfo Das Dx/Rx/DC Orders Clinical Impression: Chest pain Instructions: ED Chest Pain, Uncertain Cause Prescriptions: No Action Ajovy Autoinjector 225 mg/1.5 mL auto-injector 225 mg subcut QMONTH Patient Comments: PT STATES USES BETWEEN FIRST AND FIFTH OF EACH MONTH mecobalamin (vitamin B12) 1,000 mcg lozenge 1,000 mcg PO DAILY Rx Instructions: allow to dissolve in mouth OR may chew lightly before swallowing lithium carbonate 300 MG capsule 300 mg PO DAILY lithium carbonate 600 mg Capsule 600 mg PO QHS ferrous sulfate [FeroSul] 325 mg (65 mg iron) tablet 325 mg PO QODAY imipramine HCl 25 mg tablet 25 mg PO DAILY cholecalciferol (vitamin D3) [Vitamin D3] 25 mcg (1,000 unit) tablet 25 mcg PO DAILY Aristada 441 mg/1.6 mL suspension,extended rel syring 441 mg IM .COMPLEX Rx Instructions: 441 mg intramuscularly Q28D; simvastatin 20 mg tablet 20 mg PO QHS pantoprazole 40 mg tablet,delayed release (DR/EC) 40 mg PO DAILY famotidine 40 mg tablet 40 mg PO BID Qty: 60 2RF spironolactone 50 mg tablet See Rx Instructions .ROUTE .COMPLEX Qty: 60 4RF Dose Instruction: TAKE 1 TABLET BY MOUTH TWICE A DAY Rx Instructions: TAKE 1 TABLET BY MOUTH TWICE A DAY metoclopramide HCl [Reglan] 10 mg tablet 5 mg PO BID Qty: 28 11RF Primary Care Provider: Naina Da Silva NP Referrals: Naina Da Silva NP, [facility] ARCHITECT-[facility] [Primary Care Provider] - Activity Restrictions/Additional Instructions: Today you had a negative cardiac workup. Please continue to follow-up outpatient. Negative chest x-ray, troponin, D-dimer. Please return for any worsening symptoms Disposition Disposition: Home, Self Care Discharge Date/Time: 06/03/23 22:05
--- NOTE | 2023-06-03 21:05 | RAD_ITS ---
STUDY: X-RAY CHEST REASON FOR EXAM: Female, 27 years old. chest pain TECHNIQUE: Single AP portable view of the chest. COMPARISON: 05/08/2023 FINDINGS: The lungs are clear and expanded. There is no demonstrated pleural abnormality. Normal size heart. Normal mediastinum and daysi. Normal visualized pulmonary arteries. Normal visualized aortic arch and descending thoracic aorta. Spinal rods in the thoracic spine. Normal visualized ribs, clavicles, and shoulders. There is no demonstrated abnormality of the visualized soft tissue structures of the upper abdomen. RAD/Chest 1 View (Portable) IMPRESSION: No active disease. Electronically Signed: Vinay Plaza MD at 21:29 EDT ,
[2023-06-03 21:11] LABS: Absolute Lymphocyte Count 3.04 X10^3/uL (0.83-4.51); Basophil# 0.06 X10^3/uL; Basophil% 0.5 % (0-1); Eosinophil# 0.17 X10^3/uL; Eosinophils% 1.5 % (0-5); Hematocrit 39.9 % (37-47); Hemoglobin 12.9 g/dL (12.0-15.0); Lymphocyte # 3.04 X10^3/ul (0.83-4.51); Lymphocyte % 27.2 % (19-41); Mean Corp Hgb Conc 32.3 g/dL (32-36); Mean Corpuscular Hgb 27.9 pg (27.0-32.0); Mean Corpuscular Volume 86.4 fL (81-99); Monocyte# 0.91 X10^3/uL; Monocyte% 8.1 % (0-10); NRBC Flagged by Analyzer 0 % (0-5); Neutrophil # 6.97 X10^3/uL (2.7-7.7); Neutrophil % 62.4 % (47-70); Platelet Count 382 K/mm3 (150-450); RBC Distribution Width CV 14.1 % (11.6-14.6); RBC Distribution Width SD 44.7 fl (35.1-43.9); Red Blood Count 4.62 M/mm3 (4.2-5.4); White Blood Count 11.2 K/mm3 (4.4-11.0)
[2023-06-03 21:33] LABS: D-Dimer Quantitative (DVT/PE) < 0.27 FEU/ug/m (0.27-0.49)
[2023-06-03 21:36] LABS: Anion Gap 7 (5-15); BUN 13 mg/dL (7-18); BUN/Creat Ratio 17.4 RATIO (10-20); Chloride 108 mmol/L (98-107); Creatinine, Serum 0.74 mg/dL (0.55-1.02); EST Glomerular Filtration Rate 100 mL/min (>60); Est Glom Filt Rate - Afr Amer 121 mL/min (>60); Estimated Creatinine Clearance 162.22 ml/min; Glucose 99 mg/dL (74-106); Potassium 3.9 mmol/L (3.5-5.1); Sodium Level 140 mmol/L (136-145); Thyroid Stim Hormone (TSH) 4.01 uIU/mL (0.358-3.74); Troponin-I HS 4 pg/mL (3.0-54.0)
[2023-06-03 22:04] VITALS: BP 120/72; PULSE 102; RESP 16; TEMP 36.1; O2SAT 96
== END 2023-06-03 22:05 | disposition home or self-care (01) ==
PROVIDERS: Nurse Practitioner; Emergency Provider Emergency Medicine; PCP Nurse Practitioner Family; Visit Provider Emergency Medicine
DX: R07.9 Chest pain, unspecified (principal); F31.9 Bipolar disorder, unspecified; E11.9 Type 2 diabetes mellitus without complications; E78.5 Hyperlipidemia, unspecified; I10 Essential (primary) hypertension; F41.8 Other specified anxiety disorders; K21.9 Gastro-esophageal reflux disease without esophagitis; Z79.899 Other long term (current) drug therapy
CPT/HCPCS: 71045; 80048; 84443; 84484; 85025; 85379; 93005; 99284; J7030; A4216

== ENCOUNTER → 2023-07-05 | Outpatient (CLI) | payer MEDICAID, SELFPAY ==
[2023-07-05 08:35] LABS: Basophil# 0.04 X10^3/uL; Basophil% 0.6 % (0-1); Eosinophil# 0.14 X10^3/uL; Eosinophils% 2.1 % (0-5); Hematocrit 39.1 % (37-47); Hemoglobin 12.1 g/dL (12.0-15.0); Lymphocyte % 31.2 % (19-41); Mean Corp Hgb Conc 30.9 g/dL (32-36); Mean Corpuscular Hgb 26.9 pg (27.0-32.0); Mean Corpuscular Volume 87.1 fL (81-99); Mean Platelet Vol. 9.5 fl (6.2-12.0); Monocyte# 0.46 X10^3/uL; Monocyte% 6.8 % (0-10); NRBC Flagged by Analyzer 0 % (0-5); Neutrophil # 3.98 X10^3/uL (2.7-7.7); Platelet Count 351 K/mm3 (150-450); RBC Distribution Width CV 14.4 % (11.6-14.6); RBC Distribution Width SD 45.8 fl (35.1-43.9); Red Blood Count 4.49 M/mm3 (4.2-5.4); White Blood Count 6.7 K/mm3 (4.4-11.0)
[2023-07-05 09:17] LABS: ALB/GLOB Ratio 0.8 RATIO (0.9-2.4); AST(SGOT) 25 U/L (15-37); Alanine Aminotransfer ALT/SGPT 53 U/L (13-56); Albumin, Serum 3.2 g/dL (3.2-5.0); Alkaline Phosphatase 59 U/L (45-117); Anion Gap 3 (5-15); BUN 12 mg/dL (7-18); BUN/Creat Ratio 18.1 RATIO (10-20); Chloride 110 mmol/L (98-107); Creatinine, Serum 0.66 mg/dL (0.55-1.02); EST Glomerular Filtration Rate 114 mL/min (>60); Est Glom Filt Rate - Afr Amer 138 mL/min (>60); Free T3 2.4 pg/mL (2.18-3.98); Globulin 3.8 g/dL (2.2-4.2); Glucose 124 mg/dL (74-106); Sodium Level 138 mmol/L (136-145); T4 Free Direct 1.04 ng/dL (0.76-1.46)
[2023-07-05 18:20] LABS: Vitamin D,25 Hydroxy 30.3 ng/mL
== END | disposition home or self-care (01) ==
LOC: LAB 07:26
PROVIDERS: PCP Nurse Practitioner Family; Visit Provider Registered Nurse
DX: F31.81 Bipolar II disorder (principal)
CPT/HCPCS: 36415; 80053; 80178; 82306; 84439; 84443; 84481; 85025

== ENCOUNTER → 2023-07-10 | Outpatient (CLI) | payer MEDICAID, SELFPAY ==
[2023-07-17 09:07] LABS: ALDOSTERONE/RENIN RATIO 11.6 (0.0-30.0); Adrenocorticotropic Hormone 9.7 pg/mL (7.2-63.3); Dopamine, Pl <30 pg/mL (0-48); Epinephrine, Pl <15 pg/mL (0-62); Gastrin, Serum 265 pg/mL (0-115); Insulin Level 93.7 uIU/mL (2.6-24.9); Insulin Like Growth Factor 122 ng/mL (91-308); Norepinephrine, Pl 429 pg/mL (0-874); Renin, Plasma 3.873 ng/mL/hr (0.167-5.380)
== END | disposition home or self-care (01) ==
LOC: LAB 09:48
PROVIDERS: PCP Nurse Practitioner Family; Referring Provider Internal Medicine Gastroenterology; Visit Provider Internal Medicine Gastroenterology
DX: R00.2 Palpitations (principal)
CPT/HCPCS: 36415; 82024; 82088; 82384; 82941; 83525; 84244; 84305; 86316

== ENCOUNTER → 2023-07-12 | Outpatient (CLI) | payer MEDICAID, SELFPAY | END | disposition home or self-care (01) | LOC: LAB 07:08 → LABSPEC 07:09 | PROVIDERS: PCP Nurse Practitioner Family; Referring Provider Internal Medicine Gastroenterology; Visit Provider Internal Medicine Gastroenterology | DX: R00.2 Palpitations (principal) | CPT/HCPCS: 81050; 82384 ==

== ENCOUNTER → 2023-07-17 | Outpatient (CLI) | payer MEDICAID, SELFPAY ==
[2023-07-23 17:08] LABS: Cortisol, Free 24Ur 46 ug/24 hr (6-42); Cortisol, Urinary Free 16 ug/L (Undefined); Metanephrine, Ur 24 ug/L (Undefined); Metanephrines, 24Ur 68 ug/24 hr (36-209); Normetanephrines, 24Ur 522 ug/24 hr (95-449); Normetanephrines, Ur 183 ug/L (Undefined)
== END | disposition home or self-care (01) ==
LOC: LABSPEC 08:26
PROVIDERS: PCP Nurse Practitioner Family; Referring Provider Internal Medicine Gastroenterology; Visit Provider Internal Medicine Gastroenterology
DX: R00.2 Palpitations (principal)
CPT/HCPCS: 36415; 82530; 82533; 83835

== ENCOUNTER → 2023-07-24 | Outpatient (CLI) | payer MEDICAID, SELFPAY ==
[2023-07-24 13:39] LABS: Cholesterol 144 mg/dL (200); High Density Lipoprotein 32 mg/dL; Triglycerides 171 mg/dL; Very Low Density Lipoprotein 34 mg/dL (5-40)
== END | disposition home or self-care (01) ==
LOC: LAB 12:48
PROVIDERS: PCP Nurse Practitioner Family; Visit Provider Nurse Practitioner Family
DX: E78.5 Hyperlipidemia, unspecified (principal)
CPT/HCPCS: 36415; 80061

== ENCOUNTER → 2023-08-07 | Outpatient (CLI) | payer MEDICAID, SELFPAY ==
--- NOTE | 2023-08-07 09:30 | PET_ITS ---
EXAMINATION: Ga 68 DOTATATE PET-CT - Head to proximal thighs ? INDICATIONS: 27-year-old female with a history of nonspecific protein abnormality. ? COMPARISON EXAMINATION: None available ? INDEX LESION SIZE KRENNING SCORE SUV INTERPRETATION Left breast, left axilla, multifocal ? 1 2.83 Quantitative criteria for viable neoplasm are not fulfilled TECHNIQUE: Following the intravenous administration of 5.17 mCi of Ga 68 DOTATATE via the right hand, multiplanar image acquisitions of the head, neck, chest, abdomen and pelvis to the level of the midthigh were obtained. High resolution thin slices (1.25 mm) were acquired for reconstruction with isotropic voxel resolution in multiple orthogonal planes. ? THE KRENNING SCORING SYSTEM: 0-No Uptake; 1-Very low radiopharmaceutical concentration; 2? to liver; 3-> liver; 4->spleen. (El et al., [place] Journal of Gastroenterology, Hepatology 31:S219 1998). ? SUV Reference values: Liver: 8.9? Spleen: 36.22 ? HEIGHT:?? 66 inches WEIGHT:?? 285 pounds ? FINDINGS: ? HEAD/NECK: Symmetric physiologic tracer uptake is noted in the bilateral submandibular and parotid glands. There is visualization of the hypothalamus and midline skull base. There is no evidence of abnormal increased tracer uptake within the context of the cranial vault. There is physiologic tracer noted in the midline skull base, pineal gland. Symmetric uptake is noted in the left-right thyroid colloid and parotid glands. ? Physiologic uptake is identified in the midline skull base consistent with visualization of the pineal gland. ? CHEST:? Multifocal increased tracer uptake is noted in the left breast and left axilla. The calculated standard uptake value is 2.83. The Krenning Score is 1. ? CT of the chest demonstrates the following anatomic characteristics: Right axillary soft tissue densities demonstrate no evidence of increased radiotracer uptake. ? ABDOMEN/PELVIS:? Physiologic tracer uptake is noted in the hepatic and splenic parenchyma, bilateral renal units, urinary bladder, and visualized intestinal tract, the right and left adrenal glands. ? CT of the abdomen and pelvis is remarkable for the following: Cyst formation appears evident in the left adnexal region. There is no evidence of increased tracer uptake. ? SKELETAL:? Degenerative changes defined in the cervical, thoracic and lumbar spine. Orthopedic hardware placement is noted in the thoracolumbar spine. ? PET/PET/CT Tumor Base -Thigh Init IMPRESSION: 1. NEGATIVE EXAMINATION. There is no definitive quantitative scintigraphic evidence of viable neoplastic transformation. 2. Enhanced tracer uptake defined in the left breast and left axilla, multifocal in presentation, does not fulfill quantitative criteria for malignant transformation. (El et al., [place] Journal of Gastroenterology, Hepatology 31:S219 1998). 3. No other quantitatively significant metabolic findings are demonstrated. Electronic Signature Vinay Ramirez D.O. Accurate Quantification of SUVs and standardized KRENNING scores for this report are calculated using the exclusive [employer] Technology, ([place] Patent No. [id number] [id number] [id number] [phone] [place] patent [phone] ). Standardization and correction of the FDG SUV metric exclusively available with [employer] intellectual property, allow for vendor non-specific objective quantitative sequential FDG PET-CT comparison and otherwise unobtainable optimization of the sensitivity and specificity of the examination. [email or web address] Electronically Signed: Vinay Ramirez DO at 8:14 EDT ,
== END | disposition home or self-care (01) ==
LOC: ONC 09:18
PROVIDERS: PCP Nurse Practitioner Family; Referring Provider Internal Medicine Gastroenterology; Visit Provider Internal Medicine Gastroenterology
DX: R77.9 Abnormality of plasma protein, unspecified (principal); R00.2 Palpitations
CPT/HCPCS: 78815; A9587

== ENCOUNTER 2023-09-23 21:25 | Emergency (ER) | payer MEDICAID, SELFPAY ==
[2023-09-23 21:27] VITALS: BP 135/88; PULSE 105; RESP 16; TEMP 36.1; O2SAT 97
[2023-09-23 22:24] VITALS: BMI 47.7
--- NOTE | 2023-09-23 22:36 | EKG12_ITS ---
Test Reason : DYSRHYTHMIA Blood Pressure : / mmHG Vent. Rate : 086 BPM Atrial Rate : 086 BPM P-R Int : 166 ms QRS Dur : 076 ms QT Int : 378 ms P-R-T Axes : 037 002 002 degrees QTc Int : 452 ms Normal sinus rhythm Minimal voltage criteria for LVH, may be normal variant ( R in aVL ) Borderline ECG Confirmed by Marco Bartlett ([id number]), newspaper photo editor NAILA VILLANUEVA ([id number]) on 09/26/2023 9:08:04 AM Referred By: Confirmed By:Marco Bartlett
--- NOTE | 2023-09-23 22:39 | EX.ED.DYSGE1 ---
HPI History of Present Illness Chief Complaint: Syncope Informant: patient and parent Narrative Narrative: 27-year-old female states I think I am in adrenal crisis. When asking about more detailed history, this is based on Internet research that she did and the fact that she was told by her GI doctor recently that she may or may not have adrenal insufficiency. She has not seen endocrine yet but has an appointment in October. For the past 2 days she has had nausea, vomiting, diarrhea, fevers and chills. She is having some left-sided abdominal pain that is mostly left upper quadrant, also left lower quadrant. She states that the left upper quadrant pain is worse very soon after eating anything, sometimes gets better after vomiting which eating often does. She feels like she may be she has lost 10 pounds in the past 2 days, however when we compare her weights here, her weight today is 10 pounds more than she weighed at home today according to nursing. She states despite not drinking much, she is urinating much more frequently than normal for the past day or so, she denies any hematuria but states that her urine is dark. She had 1 syncopal episode today. It was right after vomiting over the toilet and she woke up next to the toilet on the floor. She denies having an injury or any other prodromal symptoms other than the nausea vomiting and some lightheadedness. From GI she is on pantoprazole and Reglan for gastroparesis. She is a diabetic, her sugars have been anywhere from 86 to the 120s in the last couple days. When she has checked her blood pressure it has been 105, and when she stood up it was a little higher around 110. She did not feel near syncopal or syncopal at that time. [facility] Medical History Palpitations Obesity Depression Diabetes Kidney stones GERD (gastroesophageal reflux disease) Cirrhosis Irregular heart beat Cellulitis History of echocardiogram Wears glasses Bipolar disorder Anxiety Arthritis Back pain Migraine headache Syncope Dietary restriction Heartburn Non-smoker Depression with anxiety Bipolar 1 disorder PCOS (polycystic ovarian syndrome) IBS (irritable bowel syndrome) Migraines Autism Home Medications ?Medication ?Instructions ?Recorded ?Last Taken ?Type lithium carbonate 300 mg capsule 300 mg PO DAILY Bipolar 04/05/17 12/18/22 History ferrous sulfate 325 mg (65 mg 325 mg PO QODAY supplement 01/24/22 12/16/22 History iron) tablet (FeroSul) lithium carbonate 600 mg capsule 600 mg PO QHS mental health 01/24/22 12/17/22 History fremanezumab-vfrm 225 mg/1.5 mL 225 mg subcut QMONTH migraine 10/03/22 11/21/22 History subcutaneous auto-injector (Ajovy) aripiprazole lauroxil 441 mg/1.6 441 mg IM .COMPLEX mental health 12/18/22 05/06/23 History mL suspension, ext.rel. IM syringe (Aristada) cholecalciferol (vitamin D3) 25 25 mcg PO DAILY vitamin 12/18/22 12/17/22 History mcg (1,000 unit) tablet (Vitamin D3) imipramine HCl 25 mg tablet 25 mg PO DAILY mental health 12/18/22 12/17/22 History mecobalamin (vitamin B12) 1,000 1,000 mcg PO DAILY 03/20/23 Unknown History mcg lozenges spironolactone 50 mg tablet See Rx Instructions .Route 05/16/23 Unknown Rx .COMPLEX diuretic #60 TABLETS metoclopramide HCl 10 mg tablet 5 mg (1/2 x 10 mg) PO BID nausea 05/28/23 Unknown Rx (Reglan) and vomiting #28 tabs pantoprazole 40 mg tablet,delayed 40 mg PO DAILY 06/03/23 Unknown History release simvastatin 20 mg tablet 20 mg PO QHS 06/03/23 Unknown History metoprolol succinate 25 mg 25 mg PO DAILY #90 tabs 08/13/23 Unknown Rx tablet,extended release 24 hr dicyclomine 10 mg capsule 20 mg (2 x 10 mg) PO Q6H PRN PRN 09/24/23 Unknown Rx abdominal discomfort #20 CAPSULES metronidazole 500 mg tablet 500 mg PO BID #14 tabs 09/24/23 Unknown Rx Allergy/AdvReac Type Severity Reaction Status Date / Time metformin Allergy Mild Nausea/Vom/ Verified 09/23/23 21:29 Diarrhea pollen extracts Allergy Hives Verified 09/23/23 21:29 escitalopram (From Lexapro) AdvReac Other Verified 09/23/23 21:29 lactase (From Dairy Aid) AdvReac Upset Verified 09/23/23 21:29 Stomach ondansetron (From Zofran (as AdvReac Anaphylaxis Verified 09/23/23 21:29 hydrochloride)) Family History Mother Uterine cancer Other Asthma Depression Diabetes GERD (gastroesophageal reflux disease) Heart disease Hyperlipidemia Hypertension Surgical History History of colonoscopy History of esophagogastroduodenoscopy (EGD) History of tonsillectomy and adenoidectomy H/O knee surgery H/O spinal fusion Social History household members: none housing: apartment current occupational status: unemployed history of recent travel: No Smoking Status: Never smoker alcohol intake: current alcohol intake frequency: holidays/special occasions only substance use type: does not use caffeine: Yes Type: carbonated beverages what type of physical activity do you participate in: walking frequency: daily seatbelt use: always do you feel safe at home: Yes additional social history: single ROS ROS ED Constitutional Constitutional ED: Reports chills, fever(s), malaise and subjective Eyes Eyes: Denies change in vision or diplopia ENT ENT ED: Denies rhinorrhea or sore throat Cardiovascular Cardiovascular: Denies chest pain or palpitations Respiratory/Chest Respiratory/Chest: Denies cough or dyspnea Gastrointestinal Gastrointestinal: Reports abdominal pain, diarrhea, nausea and vomiting; Denies hematemesis, hematochezia or melena Genitourinary Genitourinary ED: Reports as per HPI and urinary frequency; Denies dysuria or hematuria Musculoskeletal Musculoskeletal: Denies back pain or neck pain Integumentary Denies abscess or rash Neurologic Neurologic: Denies headache(s), paresthesias or weakness Psychiatric Psychiatric: Denies suicidal thoughts EXAM Physical Exam Const Vital Signs: 09/23/23 21:27 09/23/23 22:25 09/23/23 23:26 Temperature 96.9 F L 97.5 F L Temperature Source Temporal Temporal Pulse Rate 105 H 72 Respiratory Rate 16 15 Respiratory Pattern Normal Blood Pressure 135/88 H 134/69 H Blood Pressure Mean 103 90 Pulse Ox 97 97 Oxygen Delivery Method Room Air Room Air 09/24/23 01:00 Temperature 97.8 F Temperature Source Temporal Pulse Rate 85 Respiratory Rate 16 Respiratory Pattern Blood Pressure 124/65 H Blood Pressure Mean 84 Pulse Ox 96 Oxygen Delivery Method Room Air Positive well nourished, well developed and obese Constitutional Narrative: Well-appearing NAD conversing in full sentences General Appearance ED: well developed and NAD Nutritional Appearance: obese HEENT Reports moist mucous membranes normocephalic and atraumatic Eyes PERRL and EOMs intact bilaterally Neck full ROM and supple Resp normal respiratory effort and clear to auscultation bilaterally Cardio regular rate, regular rhythm and no murmurs Rate: Negative for tachycardic GI non-distended GI Narrative: Moderate tenderness left lower quadrant and left upper quadrant. No guarding or rebound. Otherwise nontender. Exam somewhat limited due to obesity. Normal inspection. Auscultation: normoactive bowel sounds Palpation: soft Back/Spine no CVA tenderness General Back: other FROM Extremity normal to inspection General Extremety ED: Negative for edema, pulses abnormal or tenderness General Extremity: Negative for edema or pulses abnormal Neuro oriented x3, CN's II-XII intact bilaterally and no sensory deficits noted Sensorium / Orientation: awake and alert Motor Exam: strength 5/5 throughout Psych Psych Narrative: Mental status is normal except for a flat affect Skin no rashes or lesions noted and no wounds MDM MDM MDM Narrative Medical decision making narrative: Patient syncopal episode sounds more vasovagal. She obviously has not been hypotensive and she is not here with a blood pressure 135/88. I doubt she has an adrenal crisis given all of this. I reviewed the GI note from her last visit in June, she has PCOS and multiple potential hormonal issues according to her, they did a random cortisol and it was in the normal range. She is on no steroids or other treatment for adrenal insufficiency which has not been formally diagnosed. With regards to her 2 days of GI symptoms, she does apparently have a history of diverticulosis based on colonoscopy that was done in the past, so considering diverticulitis I am obtaining a CT of the abdomen/pelvis, also considering the fact that she was diagnosed with gastritis and duodenitis, will give her some dicyclomine in addition to Reglan, IV fluids for her left upper quadrant pain, and if she has improved nausea may try GI cocktail. Also send urinalysis based on those symptoms. EKG normal, supporting morning vasovagal etiology of syncope, but the history is mostly consistent with that. In addition to basic labs, I obtained a random cortisol level. It is within normal limits for a p.m. random level. 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 Certainly it is not diagnostic and I recommended she still follow-up with endocrinology. Her potassium is elevated but due to hemolysis and she has no renal insufficiency, so I do not think that needs to be emergently repeated. [place] level was within normal limits and she has no major electrolyte disorders. That is reassuring. After IV fluids and Zofran and dicyclomine, she is feeling much better with regards to pain and nausea. She is tolerating oral fluids. I reviewed the CT images and report which I agree with, the radiologist called me about multiple incidental findings. I do not think any of these cysts or possible masses are causing her pain, but she does have some evidence of descending colonic colitis that may be causing her left-sided abdominal pain. She has a borderline leukocytosis no leftward shift, I do not think this is necessarily an acute bacterial infection, she is not having a lot of diarrhea, and the colitis is of unknown etiology, but am prescribing her 1 week of Flagyl because of its inflammatory properties it still may help even if it is not bacterial in etiology. I explained to her giving her an initial dose of that, prescribing her that, & dicyclomine for the discomfort and advised to follow-up with her doctor. We discussed the fact that these multiple incidental findings may be benign cyst, benign masses, or cancer. Hence, she needs to follow-up because she may need repeat or more advanced imaging and/or colonoscopy. Lab Data Attestation: I reviewed the patient's lab results. Labs: Laboratory Results - last 24 hr 09/23/23 22:45 WBC 10.3 RBC 4.57 Hgb 12.7 Hct 40.4 MCV 88.4 MCH 27.8 MCHC 31.4 L RDW Std Deviation 45.9 H RDW Coeff of Delmy 14.2 Plt Count TNP MPV 10.1 Immature Gran % (Auto) 0.200 Neut % (Auto) 57.6 Lymph % (Auto) 31.9 [place] % (Auto) 7.6 Eos % (Auto) 2.0 Baso % (Auto) 0.7 Absolute Neuts (auto) 6.0 Absolute Lymphs (auto) 3.30 Nucleated RBC % 0 Platelet Estimate ADEQUATE Sodium 138 Potassium 5.4 H Chloride 109 H Carbon Dioxide 24.0 Anion Gap 5 BUN 13 Creatinine 0.68 Estim Creat Clear Calc 176.74 Est GFR (MDRD) Af Amer 135 Est GFR (MDRD) Non-Af 111 BUN/Creatinine Ratio 19.2 Glucose 105 Calcium 9.4 Total Bilirubin 0.40 AST 36 ALT 59 H Alkaline Phosphatase 71 Total Protein 7.0 Albumin 3.2 Globulin 3.8 Albumin/Globulin Ratio 0.8 L Lipase 34 Serum , Qual NEGATIVE Cortisol 6.60 Urine Color Yellow Urine Clarity Sl. Cloudy Urine pH 6.0 Ur Specific [place] 1.015 Urine Protein 30 H Urine Glucose (UA) Normal Urine Ketones 5 H Urine Occult Blood 25 H Urine Nitrite Negative Urine Bilirubin Negative Urine Urobilinogen Normal Ur Leukocyte Esterase 25 H Urine RBC 0 SEEN Urine WBC 0-5 SEEN Ur Squamous Epith Cells 0 SEEN Urine Bacteria 1+ Urine Mucus 0 SEEN [place] 0.60 Radiography Diagnostic Testing: Clinical Impression(s) from Imaging Studies Abdomen/Pelvis CT 09/24/23 22:35 IMPRESSION: 1. Focal segment of collapse versus inflammation or apple core type mass of roughly 3.1 cm in length involving the hepatic flexure of the colon. Correlate with screening for neoplasm and appropriate follow-up. 2. Also mildly thick-walled appearance of partially collapsed descending colon, suspicious for mild multifocal colitis of descending colon and possibly proximal sigmoid. 3. Hepatosplenomegaly. 4. Similar mild mesenteric adenopathy. 5. Indeterminate but mildly larger and mildly thick-walled 2.4 cm centrally hypodense lesion appears to be retroperitoneal or arising from peritoneal margin, immediately adjacent to right lobe of liver and mid right kidney but separate from the adjacent structures. Uncertain etiology and significance, cannot exclude small cystic primary mesenchymal tumor. It was 1.2 cm maximum diameter January 24, 2022. Consider surgical correlation or PET scan. Electronically Signed: Diana Noe MD at 1:38 EDT , ADDENDUM: 09/24/23 0149 IMPRESSION: 1. Focal segment of collapse versus inflammation or apple core type mass of roughly 3.1 cm in length involving the hepatic flexure of the colon. Correlate with screening for neoplasm and appropriate follow-up. 2. Also mildly thick-walled appearance of partially collapsed descending colon, suspicious for mild multifocal colitis of descending colon and possibly proximal sigmoid. 3. Hepatosplenomegaly. 4. Similar mild mesenteric adenopathy. 5. Indeterminate but mildly larger and mildly thick-walled 2.4 cm centrally hypodense lesion appears to be retroperitoneal or arising from peritoneal margin, immediately adjacent to right lobe of liver and mid right kidney but separate from the adjacent structures. Uncertain etiology and significance, cannot exclude small cystic primary mesenchymal tumor. It was 1.2 cm maximum diameter January 24, 2022. Consider surgical correlation or PET scan. N.B. : The above Results were Read Back by Diana Noe MD to Jaylon Galicia MD, and understanding confirmed on 09/24/2023 01:42:21 (ET). Electronically Signed: Diana Noe MD at 1:38 EDT , Rhythm Strip Rhythm Strip: Sinus Rhythm Rate: 89 Ectopy: None EKG Initial EKG: Attestation: I personally reviewed and interpreted this EKG as follows: Interpretation: Sinus Rhythm and No Acute Injury Pattern Comments: nml EKG, rate 86 Management Discussion w/another healthcare provider: Radiologist Discharge Plan Triage Chief Complaint: Syncope ED Provider: Jaylon Galicia Dx/Rx/DC Orders Clinical Impression: Nausea vomiting and diarrhea, Syncope, vasovagal, Colitis, Intraabdominal mass Instructions: ED Understanding Colitis, ED Fainting, Vagal Reaction Prescriptions: New dicyclomine 10 mg capsule 20 mg PO Q6H PRN PRN (Reason: abdominal discomfort) Qty: 20 0RF metronidazole 500 mg tablet 500 mg PO BID Qty: 14 0RF No Action Ajovy Autoinjector 225 mg/1.5 mL auto-injector 225 mg subcut QMONTH Patient Comments: PT STATES USES BETWEEN FIRST AND FIFTH OF EACH MONTH mecobalamin (vitamin B12) 1,000 mcg lozenge 1,000 mcg PO DAILY Rx Instructions: allow to dissolve in mouth OR may chew lightly before swallowing lithium carbonate 300 MG capsule 300 mg PO DAILY lithium carbonate 600 mg Capsule 600 mg PO QHS ferrous sulfate [FeroSul] 325 mg (65 mg iron) tablet 325 mg PO QODAY imipramine HCl 25 mg tablet 25 mg PO DAILY cholecalciferol (vitamin D3) [Vitamin D3] 25 mcg (1,000 unit) tablet 25 mcg PO DAILY Aristada 441 mg/1.6 mL suspension,extended rel syring 441 mg IM .COMPLEX Rx Instructions: 441 mg intramuscularly Q28D; simvastatin 20 mg tablet 20 mg PO QHS pantoprazole 40 mg tablet,delayed release (DR/EC) 40 mg PO DAILY spironolactone 50 mg tablet See Rx Instructions .ROUTE .COMPLEX Qty: 60 4RF Dose Instruction: TAKE 1 TABLET BY MOUTH TWICE A DAY Rx Instructions: TAKE 1 TABLET BY MOUTH TWICE A DAY metoclopramide HCl [Reglan] 10 mg tablet 5 mg PO BID Qty: 28 11RF metoprolol succinate 25 mg tablet extended release 24 hr 25 mg PO DAILY Qty: 90 3RF Primary Care Provider: Naina Da Silva Referrals: Naina Da Silva, [employer] [facility] [Primary Care Provider] - As soon as possible Print Language: Tunisian Disposition Disposition: Home, Self Care
[2023-09-23] MEDS: Dicyclomine 20 MG/2 ML Vial IM (22:59)
[2023-09-23] MEDS: 0.9% Normal Saline (1000mL) 1,000 ML 999 ML IV (23:00)
[2023-09-23] MEDS: Metoclopramide 10 MG/2 ML Vial 5 MG IV (23:01)
[2023-09-23 23:02] LABS: Mucous, Urine 0 SEEN /hpf (<or=2+); Red Blood Cells-Urine 0 SEEN /hpf (0-5); Squamous Epithelial Cells - UA 0 SEEN /hpf (5-10)
[2023-09-23 23:20] LABS: Basophil# 0.07 X10^3/uL; Basophil% 0.7 % (0-1); Eosinophil# 0.21 X10^3/uL; Hematocrit 40.4 % (37-47); Hemoglobin 12.7 g/dL (12.0-15.0); Lymphocyte % 31.9 % (19-41); Mean Corp Hgb Conc 31.4 g/dL (32-36); Mean Corpuscular Hgb 27.8 pg (27.0-32.0); Mean Corpuscular Volume 88.4 fL (81-99); Mean Platelet Vol. 10.1 fl (6.2-12.0); Monocyte# 0.79 X10^3/uL; Monocyte% 7.6 % (0-10); NRBC Flagged by Analyzer 0 % (0-5); Neutrophil # 5.95 X10^3/uL (2.7-7.7); Neutrophil % 57.6 % (47-70); POSITIVE COUNT YES; RBC Distribution Width CV 14.2 % (11.6-14.6); RBC Distribution Width SD 45.9 fl (35.1-43.9); Red Blood Count 4.57 M/mm3 (4.2-5.4); White Blood Count 10.3 K/mm3 (4.4-11.0)
[2023-09-23 23:26] VITALS: BP 134/69; PULSE 72; RESP 15; TEMP 36.4; O2SAT 97
[2023-09-23 23:31] LABS: Color, Urine Yellow (Yellow); Glucose, Dipstick Normal (Normal); Ketone-Dipstick 5 mg/dl (Negative); Leukocyte Esterase-Dipstick 25 /ul (Negative); Nitrite-Dipstick Negative (Negative); Occult Blood-Urine 25 /ul (Negative); Protein-Dipstick 30 mg/dl (Negative); Specific Gravity, Urine 1.015 (1.002-1.030); Urine Bilirubin Dipstick Negative (Negative); Urine Clarity Sl. Cloudy (Clear); Urine Urobilinogen Normal (Normal)
[2023-09-23 23:44] LABS: ALB/GLOB Ratio 0.8 RATIO (0.9-2.4); AST(SGOT) 36 U/L (15-37); Alanine Aminotransfer ALT/SGPT 59 U/L (13-56); Albumin, Serum 3.2 g/dL (3.2-5.0); Alkaline Phosphatase 71 U/L (45-117); Anion Gap 5 (5-15); BUN 13 mg/dL (7-18); BUN/Creat Ratio 19.2 RATIO (10-20); Calcium,Total 9.4 mg/dL (8.5-10.1); Chloride 109 mmol/L (98-107); Creatinine, Serum 0.68 mg/dL (0.55-1.02); EST Glomerular Filtration Rate 111 mL/min (>60); Est Glom Filt Rate - Afr Amer 135 mL/min (>60); Estimated Creatinine Clearance 176.74 ml/min; Globulin 3.8 g/dL (2.2-4.2); Glucose 105 mg/dL (74-106); Lipase 34 U/L (13-75); Potassium 5.4 mmol/L (3.5-5.1); Sodium Level 138 mmol/L (136-145)
[2023-09-23 23:45] LABS: Internal QC Validated? YES +Cl - CLEAR BKGD; Pregnancy, Serum, hCG Quali. NEGATIVE Negative
[2023-09-23 23:54] LABS: Bacteria 1+ /hpf (None Seen); White Blood Cells 0-5 SEEN /hpf (0-5)
[2023-09-24 00:15] LABS: Differential Indicated SCAN CRITERIA MET
[2023-09-24 00:16] LABS: Platelet Estimate ADEQUATE (ADEQ)
[2023-09-24 01:00] VITALS: BP 124/65; PULSE 85; RESP 16; TEMP 36.6; O2SAT 96
[2023-09-24 02:30] VITALS: PULSE 93; RESP 16; TEMP 36.1; O2SAT 98
[2023-09-24] MEDS: metroNIDAZOLE 500 MG Tablet PO (02:31)
--- NOTE | 2023-09-24 22:35 | CT_ITS ---
We are attempting to reach an attending provider to discuss findings. An addendum with communication details will be sent when the communication is complete. EXAM: CT ABDOMEN AND PELVIS WITH INTRAVENOUS CONTRAST CLINICAL INDICATION: llq pain, hx diverticulosis . MRI report September 19, 2022 mentioned history of Crohn''s disease, CT January 24, 2022 mentioned right-sided colitis TECHNIQUE: Helically acquired images were obtained of the abdomen and pelvis with intravenous contrast. This CT exam was performed using one or more of the following dose reduction techniques: automated exposure control, adjustment of the mA and/or kV according to patient size, and/or use of iterative reconstruction technique. CONTRAST: IV 100mL Isovue-370 RADIATION DOSE: CTDIvol = 29.55 mGy, DLP = 1868.88 mGy-cm COMPARISON: No relevant prior studies available. FINDINGS: LOWER THORAX: Unremarkable. Lung bases are clear. No cardiomegaly. No significant pericardial effusion. ABDOMEN: LIVER: Stable hepatosplenomegaly. GALLBLADDER AND BILE DUCTS: Unremarkable. No calcified gallstones. No gallbladder distention or wall edema. No intra- or extrahepatic biliary ductal dilation. PANCREAS: Unremarkable. No focal cystic or solid mass. SPLEEN: See above. ADRENALS: Unremarkable. No nodules. KIDNEYS AND URETERS: See below. STOMACH AND BOWEL: Moderate gas and mild fluid distending the stomach. Mild scattered fluid and gas in the small bowel, minimal mucosal enhancement in terminal ileal loops. Moderate gas and stool in some of the proximal half of the colon, mild gas and stool in the distal colon. Focal collapsed and questionably wall thickening short segment of hepatic flexure of colon, cannot exclude neoplasm, best seen on coronal images 58 through 64. Mildly thick-walled almost collapsed appearance of some of the descending colon. PELVIS: APPENDIX: Normal appendix is best seen on coronal images.. BLADDER: Minimally distended urinary bladder, minimal wall thickening likely due to nondistention. REPRODUCTIVE: Unremarkable as visualized. No mass. ABDOMEN and PELVIS: INTRAPERITONEAL SPACE: See below. BONES/JOINTS: Mildly larger appearance of a hypodense-cystic lesion of 2 cm x 1.6 cm x 2.4 cm adjacent to posterior 11th rib, liver and right kidney. This appears separate from liver and kidney and likely arising from peritoneal margin. Stable appearance of extensive thoracolumbar stabilization rods and straightening of the usual curvature. No suspicious lytic or blastic abnormality. SOFT TISSUES: Unremarkable. No discrete abdominal or pelvic wall hernia. VASCULATURE: Unremarkable. Abdominal aorta is non-dilated. LYMPH NODES: Mild mesenteric adenopathy is similar to prior exam. CT/Abdomen/Pelvis W IV Cont ONLY IMPRESSION: 1. Focal segment of collapse versus inflammation or apple core type mass of roughly 3.1 cm in length involving the hepatic flexure of the colon. Correlate with screening for neoplasm and appropriate follow-up. 2. Also mildly thick-walled appearance of partially collapsed descending colon, suspicious for mild multifocal colitis of descending colon and possibly proximal sigmoid. 3. Hepatosplenomegaly. 4. Similar mild mesenteric adenopathy. 5. Indeterminate but mildly larger and mildly thick-walled 2.4 cm centrally hypodense lesion appears to be retroperitoneal or arising from peritoneal margin, immediately adjacent to right lobe of liver and mid right kidney but separate from the adjacent structures. Uncertain etiology and significance, cannot exclude small cystic primary mesenchymal tumor. It was 1.2 cm maximum diameter January 24, 2022. Consider surgical correlation or PET scan. Electronically Signed: Diana Noe MD at 1:38 EDT ,
== END 2023-09-24 02:32 | disposition home or self-care (01) ==
PROVIDERS: Emergency Provider Emergency Medicine; PCP Nurse Practitioner Family; Visit Provider Emergency Medicine
DX: R55 Syncope and collapse (principal); Z68.42 Body mass index [BMI] 45.0-49.9, adult; K52.9 Noninfective gastroenteritis and colitis, unspecified; R19.00 Intra-abdominal and pelvic swelling, mass and lump, unspecified site; E66.9 Obesity, unspecified
CPT/HCPCS: 74177; 80053; 80178; 81001; 82533; 83690; 84703; 85025; 93005; 96361; 96372; 96374; 99284; J7030; A4216

== ENCOUNTER 2023-10-05 11:09 | Outpatient (CLI) | payer MEDICAID, SELFPAY ==
[2023-10-11 12:10] LABS: Chromogranin A 186.2 ng/mL (0.0-101.8); Insulin Level 70.5 uIU/mL (2.6-24.9); Somatomedin C 102 ng/mL (91-308)
== END 2023-10-05 23:59 | disposition home or self-care (01) ==
PROVIDERS: PCP Nurse Practitioner Family; Referring Provider Internal Medicine Gastroenterology; Visit Provider Internal Medicine Gastroenterology
DX: R00.2 Palpitations (principal); R31.0 Gross hematuria
CPT/HCPCS: 82024; 82088; 82384; 82533; 82941; 84244; 36415; 83525; 84305; 86316

== ENCOUNTER → 2023-10-08 | Outpatient (CLI) | payer MEDICAID, SELFPAY ==
[2023-10-10 15:09] LABS: Gastrin, Serum 95 pg/mL (0-115)
== END | disposition home or self-care (01) ==
PROVIDERS: PCP Nurse Practitioner Family; Referring Provider Internal Medicine Gastroenterology; Visit Provider Internal Medicine Gastroenterology
DX: R00.2 Palpitations (principal)
CPT/HCPCS: 82941

== ENCOUNTER → 2023-10-10 | Outpatient (CLI) | payer MEDICAID, SELFPAY ==
[2023-10-19 18:07] LABS: Aldosterone, Serum 41.2 ng/dL (0.0-30.0); Gastrin, Serum 134 pg/mL (0-115); Renin, Plasma 5.892 ng/mL/hr (0.167-5.380)
== END | disposition home or self-care (01) ==
LOC: LAB 10:24
PROVIDERS: PCP Nurse Practitioner Family; Referring Provider Internal Medicine Gastroenterology; Visit Provider Internal Medicine Gastroenterology
DX: R00.2 Palpitations (principal)
CPT/HCPCS: 82088; 82384; 82941; 84244

== ENCOUNTER → 2023-10-12 | Outpatient (CLI) | payer MEDICAID, SELFPAY | END | disposition home or self-care (01) | LOC: LAB 14:20 → LABSPEC 14:21 | PROVIDERS: Student in an Organized Health Care Education/Training Program; PCP Nurse Practitioner Family; Referring Provider Internal Medicine Gastroenterology; Visit Provider Internal Medicine Gastroenterology | DX: R00.2 Palpitations (principal); K58.9 Irritable bowel syndrome, unspecified; R10.12 Left upper quadrant pain | CPT/HCPCS: 82024; 82653; 83993; 87177; 87209; 87329; 82384; 83630; 87493; 87506 ==

== ENCOUNTER → 2023-10-15 | Outpatient (CLI) | payer MEDICAID, SELFPAY ==
[2023-10-16 20:08] LABS: Calprotectin, Stool 70 ug/g (0-120)
== END | disposition home or self-care (01) ==
LOC: LABSPEC 07:27
PROVIDERS: Student in an Organized Health Care Education/Training Program; PCP Nurse Practitioner Family; Referring Provider Internal Medicine Gastroenterology; Visit Provider Internal Medicine Gastroenterology
DX: R10.12 Left upper quadrant pain (principal)
CPT/HCPCS: 83993; 87177; 87209; 87329

== ENCOUNTER 2023-10-24 10:47 | Day surgery (SDC) | payer MEDICAID, SELFPAY ==
[2023-10-24] VITALS (8 sets, daily range): BP systolic 111–130; BP diastolic 58–72; PULSE 96–120; RESP 16–18; TEMP 36.1–37.8; O2SAT 100; BMI 46.2
--- NOTE | 2023-10-24 11:09 | HP.PCM_ITS ---
History and Physical Date of Admission: 10/24/23 DIAZ DOUGLAS, is a 27 F who presents to the office today for f/u. PMH autism, bipolar type 1, PCOS [facility] ED on multiple occasions over the years with N/V, headache, diarrhea, CP. Stool studies for infection have been performed throughout the years with calprotectin, C.Difficile, EP, O/P WNL each time. CT abd/pel ..16 abd pain/diarrhea mild hepatomegaly, homogeneous; splenomegaly; multiple fluid-filled small bowel loops; diverticulosis. Stool 11.10.16 lactoferrin + US RUQ 2.16.16 abd pain hepatomegaly 18.7cm with fatty infiltration. HIDA 4.24.17 EF 88%. When compared to 04.06.16 scan there is continued evidence of duodenal-gastric reflux. GI and hepatology specialists established in 2018 with diarrhea, bloating, abd pain, N/V and diagnosed with IBS-D and GERD. ? [facility] Celiac 12.12.17 without positive findings. EGD 01.03.18 advanced to small bowel noting bile in stomach and mild gastritis. No pathologic changes. US .. hepatic measurement 18cm with increased echogenicity. ? EGD 09.08.20 advanced to small bowel noting gastritis, mild. Remaining exam without acute/chronic finding. H.Pylori -. ? Colonoscopy 10.08.20 advanced to TI noting internal hemorrhoids without visual abnormality. Without pathologic changes. [facility] visits continue as noted above. US RUQ 10.8.21 abd pain hepatomegaly 19cm with fatty infiltration. US ABD 11.30. abd pain hepatomegaly 20.2cm with fatty infiltration; splenomegaly. No ascites. Biochemical workup T3, T4, CBC, CMP, TIBC, iron, ferritin, copper, zinc, selenium without pertinent abnormality. ? TSH H4.91 [facility] ED visit prompting referral 01.24.22 with diffuse abdominal pain and diarrhea. She has had issue with diarrhea for many years and has received a diagnosis of IBS-D. Most recent colonoscopy 2020. Discharged without acute concern with cipro/flagyl. ? Biochemical workup CBC, CMP, lipase without concern. LFT AST H63/ALT H160/ AP57 (AST/ALT ratio 0.39). ? CT abd/pel diffuse hepatomegaly, normal spleen; wall thickening of right colon/hepatic flexure. ? Stool studies lactoferrin, EP, C.Difficile, O/P WNL. Calprotectin, elastase, giardia not run. PCP OV as ED f/u 01.31.2022 with biochemical results TSH H4.77; T4WNL. *[facility] established 02.15.22 following [facility] presentation. Diaz has had multiple ED visits. Clinic presentation she had concern regarding postprandial nausea and diarrhea with intermittent emesis; feelings of early satiety for several hours resulting in decreased PO intake; left sided abdominal discomfort with frequent stooling with mucous, no blood. Biochemical CMP, CBC, ESR, HIV, ferritin, LDH, coagulation, AMA, ASM, LEN comp, ANCA, hepatitis, CARLA, AFP, celiac, ceruloplasmin, copper, GAME, haptoglobin, XIOMARA, ammonia without pertinent abnormality. A1c H5.9, CRP H4.50, Crohn?s (AMCA, ANCA).? LFT AST 3 3/ALT H92/AP52 Stool studies lactoferrin, elastase WNL.? Calprotectin H137 ? US and elastography 03.07.22 hepatomegaly 21.5cm with fatty infiltration stiffness measures 11.9kPa; pancreatic increased echogenicity. ? Gastric emptying study 03.15.22 time unable to be calculated. Contact with results; start Zenpep and reglan OV 06.06.22 She continues to have difficulty with nausea and loose stools with reduction of severity and frequency. She felt zenpep caused her to have increased flatulence. Reglan not being taken as she thought it was PRN. ? EGD and colonoscopy 08.08.22 EGD non-severe esophagitis, no path changes; gastritis; duodenitis. ? Colonoscopy mildly congested mucosa RS and sigmoid colon, no path changes; IC pathology focal acute enteritis, nonspecific. OV 08.29.22 reglan not being taken regularly as she thought it was PRN. Start famotidine ? Biochemical CBC, CMP, D25, T4 without pertinent abnormality ? A1c H6.7, AST H94-ALT H199-AP 75, triglycerides H215, cholesterol H, B12 H1606, TSH H3.75 ? MREnterography 09.19.22 marked mucosal hyperenhancement of short segments of small bowel including TI; limited study r/t underdistention of bowel. Contact 10.10.22 with results, Start budesonide. OV 01.30.23 BM typically normal 1-2/day; notes intermittent loose stools with dairy consumption and constipation occurring weekly with lack of BM for up to two days with abdominal cramping and then hard stools. Continues with budesonide 3mg QD. OV 07.10.23 pt reports that she is currently struggling with constipation. She reports having a hard, formed bm every other day; denies blood in her stool. Pt reports stopping Budesonide about 2 months ago and feels her constipation and abdominal cramps have gotten worse. Pt reports that her blood sugar is always high lately and would like some direction / education on that. OV 10.10.23 patient has been having 3 weeks of LLQ shooting pain and dull right sided pain. She also complains of alternating constipation and diarrhea. She has been nauseous and vomiting multiple times per day. She has not been able to keep food down. She has been taking dicyclomine, tylenol and advil for pain. She has an appointment with endocrinology at the end of September. She also mentions having very dark urine, burning and frequency. ROS Const Constitutional: Positive for fatigue, fever(s), frequent falls, headache(s) and weight change (weight loss and gain) ENT ENT: Positive for headache(s) and difficulty swallowing Gastro GI: Positive for abdominal pain, bloating, change in bowel habits, constipation, diarrhea, heartburn, difficulty swallowing, excessive flatus, nausea/dyspepsia and vomiting; No belching, change in stool character, coffee ground emesis, cramping, feeling full early, incontinent of stools, Vomiting blood/hematemesis, Blood in stool, loose stools, Black,tarry stools, pain with swallowing or other Musc Musculoskeletal: Positive for back pain, muscle cramps, numbness and tingling; No joint pain Skin Skin: Positive for itchy eyes; No yellowing of the eye Neuro Neurology: Positive for frequent falls, headache(s), numbness and tingling Psych Psychiatric: Positive for anxiety, Positive for depression and Positive for Compulsive Behavior Endo Endocrine: Positive for fatigue and weight change (weight loss and gain) Aller/Imm Allergy/Immunologic: Positive for itchy eyes Naga/Lymp Hematologic/Lymphatic: No easy bleeding or easy bruising Exam Const General: cooperative and comfortable Nutritional Appearance: average body habitus and well nourished [facility] Head: normal to inspection Ears: hearing grossly normal bilaterally Nose: external nose normal Face and sinus: normal facial exam Eyes General: appearance normal, both eyes and all related structures Neck Neck: normal visual inspection Chest Chest palpation & inspection: normal inspection of the chest Resp Effort & Inspection: normal respiratory effort Cardio Palpation: normal PMI GI Inspection: normal to inspection Palpation: no hepatosplenomegaly Skin General: no rashes or lesions noted Neuro General: patient alert Extrem General: normal to inspection Psych Affect: normal affect Assessment and Plan Assessment and Plan (1) LUQ abdominal pain: Status: Acute Plan: Patient is here today for f/u. She has been having abdominal pain, nausea/vomiting, diarrhea, and constipation. In the past, CBC, CMP, IBD panel, and autoimmune tests have without pertinent abnormality. -Will order stool testing; enteric pathogen, ova parasites, elastase, calprotectin and lactoferrin -She will continue taking miralax daily -Prescribed her hyoscyamine to try instead of dicyclomine -She will call PCP to make appointment for her urinary symptoms. -Will schedule her for colonoscopy; some wall thickening of hepatic flexure seen on CT Orders: Orders I have examined the patient and the H&P has been reviewed. There are no clinical changes since date of exam.
[2023-10-24] MEDS: Lactated Ringers 1,000 ML 15 ML IV (11:22)
--- NOTE | 2023-10-24 11:32 | SUR.PREOP ---
Patient attempted to void x 2 for urine ; unable. refused blood draw for serum preg. patient denies possibility of .
--- NOTE | 2023-10-24 11:54 | PRE.ANES_ITS ---
ASA Classification* ASA Classification ASA Classification: 3 Assessment & Plan Anesthesia* Anesthesia Assessment Anesthesia Assessment: Discussed sedation and/or anesthesia options, risks, benefits, and alternatives with patient/parents/legal guardian/POA. Questions invited. The patient/parents/legal guardian/POA seems to understand and agrees to proceed with anesthesia plan. Reviewed the physical assessment, medical history, allergy history and patient home medications list prior to surgery/procedure/anesthetic and documented any changes. Performed airway and anesthesia risk assessments. Anesthesia Type Anesthesia Type: MAC (see written pre anesthesia record for full assessment) Anesthesia Focused Assessment* Temperature: 97.7 F Pulse Rate: 120 Blood Pressure: 119/72 Respiratory Rate: 16 Pulse Ox: 100 Airway Assessment Mouth opens: >3 cm Mallampati Score: II Focused Labs Anesthesia Preop lab: CBC WBC 10.3 K/mm3 (4.4-11.0) 09/23/23 22:45 RBC 4.57 M/mm3 (4.2-5.4) 09/23/23 22:45 Hgb 12.7 g/dL (12.0-15.0) 09/23/23 22:45 Hct 40.4 % (37-47) 09/23/23 22:45 Plt Count TNP 09/23/23 22:45 CHEMISTRY Potassium 5.4 mmol/L (3.5-5.1) H 09/23/23 22:45 Sodium 138 mmol/L (136-145) 09/23/23 22:45 Magnesium 2.2 mg/dL (1.6-2.6) 12/20/22 05:00 Phosphorus 3.3 mg/dL (2.5-4.9) 11/30/21 07:50 BUN 13 mg/dL (7-18) 09/23/23 22:45 Creatinine 0.68 mg/dL (0.55-1.02) 09/23/23 22:45 Glucose 105 mg/dL (74-106) 09/23/23 22:45 POC Glucose 102 mg/dL (74-106) 11/23/22 00:34 TSH 2.10 uIU/mL (0.358-3.74) 07/05/23 07:35 COAG PT 13.7 SECONDS (11.7-14.9) 02/15/22 11:18 Urine Test Negative Negative 01/24/22 20:20 Pre-Assessment Diagnosis/Proposed Procedure Planned Operative Procedure(s): COLONOSCOPY Anesthesia History 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 When Was Last Pacemaker Check QUESTION #4 FULL TEXT: You/Your Family Experience fever (hyperthermia) with Anesthesia Last Oral Intake Last Oral intake: Last Oral Intake NPO since 10:30 10/24/23 11:17 Meds taken in AM with sips of No 10/24/23 11:17 water? Meds patient instructed to take am of surgery PONV PONV - entry level java developer: PONV - entry level java developer Female Yes 10/17/23 15:32 HX of Motion Sickness No 10/17/23 15:32 HX of N/V After Surgery No 10/17/23 15:32 Non-Smoker Yes 10/17/23 15:32 Duration of Surgery greater No 10/17/23 15:32 than 60 minutes Number of Risk Factors 2 10/17/23 15:32 PONV Score Moderate Risk 10/17/23 15:32 Height & Weight Height & Weight: Anesthesia: Height & Weight Height 5 ft 6 in 10/24/23 11:17 Weight: 129.9 kg 10/24/23 11:17 Body Mass Index (BMI) 46.2 10/24/23 11:17 Respiratory Assessment Respiratory Assessment - entry level java developer: Respiratory Tract Infection Hx - entry level java developer Hx Respiratory Tract Infection No 10/17/23 15:32 STOP Sleep Apnea STOP Sleep Apnea - entry level java developer: STOP Sleep Apnea - entry level java developer Hx Hypertension Yes: CONTROLLED WITH MED 10/17/23 15:32 Hx Sleep Apnea No 10/17/23 15:32 CPAP BIPAP Do you snore loudly (louder No 10/17/23 15:32 than talking or can be heard Do you often feel tired/ Yes 10/17/23 15:32 fatigued/ sleepy during daytime? Has anyone observed you stop No 10/17/23 15:32 breathing during sleep? STOP Results Positive 10/17/23 15:32 QUESTION #5 FULL TEXT : Do you snore loudly (louder than talking or can be heard through closed doors)? 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 Specify any problems Hx of Preganancy in last 3 No 10/17/23 15:32 Months Nurse Filling Out Transfusion DSCHRIBER 10/17/23 15:32 & Questions: Date: 10/17/23 10/17/23 15:32 Time: 15:32 10/17/23 15:32 Patient unable to answer at this time (ie. confused, unrespo /Reproduction History /Reproductive History - entry level java developer: /Reproductive Hx- entry level java developer Hx Now No 10/17/23 15:32 Gestational Age (in weeks): EDC: Hx Hx Para Hx Section SAB No 10/17/23 15:32 Active Medications Active Medications: Current Medications Generic Name Dose Route Start Last Admin Trade Name Freq PRN Reason Stop Dose Admin Lactated Ringer's 1,000 mls @ 15 mls/hr 10/24/23 11:00 10/24/23 11:22 IV 15 mls/hr .Q48H TORIN Administration PFSH Medical History Alcohol use Picking own skin Low iron Fatty liver Gastroparesis Cardiology follow-up encounter Palpitations Obesity Depression Diabetes GERD (gastroesophageal reflux disease) Irregular heart beat Cellulitis History of echocardiogram Wears glasses Bipolar disorder Anxiety Arthritis Back pain Migraine headache Syncope Non-smoker Bipolar 1 disorder PCOS (polycystic ovarian syndrome) IBS (irritable bowel syndrome) Migraines Autism Home Medications ?Medication ?Instructions ?Recorded ?Last Taken ?Type lithium carbonate 300 mg capsule 300 mg PO DAILY Bipolar 04/05/17 10/22/23 History ferrous sulfate 325 mg (65 mg 325 mg PO QODAY supplement 01/24/22 10/21/23 History iron) tablet (FeroSul) lithium carbonate 600 mg capsule 600 mg PO QHS mental health 01/24/22 10/22/23 History fremanezumab-vfrm 225 mg/1.5 mL 225 mg subcut QMONTH migraine 10/03/22 11/21/22 History subcutaneous auto-injector (Ajovy) aripiprazole lauroxil 441 mg/1.6 441 mg IM .COMPLEX mental health 12/18/22 10/23/23 History mL suspension, ext.rel. IM syringe ([place]ada) cholecalciferol (vitamin D3) 25 25 mcg PO DAILY vitamin 12/18/22 10/22/23 History mcg (1,000 unit) tablet (Vitamin D3) imipramine HCl 25 mg tablet 25 mg PO DAILY mental health 12/18/22 10/22/23 History mecobalamin (vitamin B12) 1,000 1,000 mcg PO DAILY 03/20/23 10/22/23 History mcg lozenges metoclopramide HCl 10 mg tablet 5 mg (1/2 x 10 mg) PO BID nausea 05/28/23 10/22/23 Rx (Reglan) and vomiting #28 tabs pantoprazole 40 mg tablet,delayed 40 mg PO DAILY 06/03/23 10/22/23 History release simvastatin 20 mg tablet 20 mg PO QHS 06/03/23 10/22/23 History lactulose 10 gram/15 mL oral 30 g (45 mL) PO BID PRN 09/28/23 10/21/23 Rx solution constipation #473 mL hyoscyamine sulfate 0.125 mg tablet 0.125 mg PO BID-QID PRN dyspepsia 10/10/23 10/21/23 Rx #30 tabs medroxyprogesterone 10 mg tablet 10 mg PO .COMPLEX #30 tabs 10/17/23 10/22/23 Rx polyethylene glycol 3350 17 4 g PO ONCE PRN constipation 10/17/23 10/24/23 History gram/dose oral powder (Miralax) spironolactone 50 mg tablet 50 mg PO BID diuretic 10/17/23 10/22/23 History metoprolol tartrate 50 mg tablet 50 mg PO BID #180 tabs 10/19/23 10/22/23 Rx sucralfate 1 gram tablet 1 g PO TID PRN constipation 10/19/23 10/21/23 History Allergy/AdvReac Type Severity Reaction Status Date / Time metformin Allergy Mild Nausea/Vom/ Verified 10/24/23 11:23 Diarrhea pollen extracts Allergy Hives Verified 10/24/23 11:23 escitalopram (From Lexapro) AdvReac Other Verified 10/24/23 11:23 lactase (From Dairy Aid) AdvReac Upset Verified 10/24/23 11:23 Stomach ondansetron (From Zofran (as AdvReac Anaphylaxis Verified 10/24/23 11:23 hydrochloride)) Family History Mother Uterine cancer Other Asthma Depression Diabetes GERD (gastroesophageal reflux disease) Heart disease Hyperlipidemia Hypertension Surgical History History of colonoscopy History of esophagogastroduodenoscopy (EGD) History of tonsillectomy and adenoidectomy H/O knee surgery H/O spinal fusion Social History household members: none housing: apartment current occupational status: unemployed history of recent travel: No Smoking Status: Never smoker alcohol intake: current alcohol intake frequency: holidays/special occasions only substance use type: does not use caffeine: Yes Type: carbonated beverages what type of physical activity do you participate in: walking frequency: daily seatbelt use: always do you feel safe at home: Yes additional social history: single Review of Systems (Anesthesia) ROS Narrative System reviewed and no additional complaints, except as documented.
--- NOTE | 2023-10-24 12:00 | COLBX_PTH ---
PATIENT: DIAZ DOUGLAS LOC: EN U#:[id number] AGE/SX: 27/F ROOM: RE10/24/[address]: Dr. Andreas Oliva DO : 1995 BED: DIS: 10/24/2023 SPEC #: [id number] RECD: 10/24/23 13:43 STATUS: DARRYL NUVIA #: [id number] CLEMENTINA: 10/24/23 12:[address]: Andreas Oliva DEPT: SURGICAL PATHOLOGY RECD BY: Yoli Carlos ENTERED: 10/24/23 14:24 SP TYPE: COLON BX OT DR: Naina Da Silva, [facility], MARKETING EFFECTIVENESS MANAGER-C Tissues: Sigmoid colon biopsy Procedures: Surgery Specimen Level IV HEADER OPERATION: Colonoscopy with biopsy PRE-OP DIAGNOSIS: Left upper quadrant pain TISSUE SUBMITTED: Sigmoid biopsy MICROSCOPIC DIAGNOSIS Sigmoid colon, biopsy: No pathologic change. No evidence of colitis. See comment. MARTINE/ 10/25/2023 COMMENT Trichrome stain with matched control was used in the evaluation of this case. MICROSCOPIC DESCRIPTION Slides are reviewed. GROSS DESCRIPTION Received in fixative is one container labeled with the patient's name and designated Sigmoid colon biopsy. The specimen consists of multiple irregular fragments of light sanford soft tissue that in aggregate measure 1.5 x 0.4 x 0.1 cm. The specimen is totally submitted in one cassette. 10/24/2023 TC:5 CPT:20409,84449
--- NOTE | 2023-10-24 12:24 | OP.COLON_ITS ---
Patient Name: Marion Gutierrez Procedure Date: 10/24/2023 11:53 AM Date of : 1995 Age: 27 Procedure: Colonoscopy Indications: Suspected Crohn's disease of the colon Providers: Andreas Oliva DO Referring MD: Naina Da Silva [facility], General Adjuster-c Medicines: Monitored Anesthesia Care Patient Profile: This is a 27 year old female. Refer to note in patient chart for documentation of history and physical. Last Colonoscopy: date unknown. Unable to locate last colonoscopy report. Complications: No immediate complications. Procedure: Pre-Anesthesia Assessment: - Prior to the procedure, a History and Physical was performed, and patient medications and allergies were reviewed. The patient is competent. The risks and benefits of the procedure and the sedation options and risks were discussed with the patient. All questions were answered and informed consent was obtained. Patient identification and proposed procedure were verified by the physician in the pre-procedure area. Mental Status Examination: alert and oriented. Airway Examination: normal oropharyngeal airway and neck mobility. Respiratory Examination: clear to auscultation. CV Examination: normal. ASA Grade Assessment: II - A patient with mild systemic disease. After reviewing the risks and benefits, the patient was deemed in satisfactory condition to undergo the procedure. The anesthesia plan was to use monitored anesthesia care (MAC). Immediately prior to administration of medications, the patient was re-assessed for adequacy to receive sedatives. The heart rate, respiratory rate, oxygen saturations, blood pressure, adequacy of pulmonary ventilation, and response to care were monitored throughout the procedure. The physical status of the patient was re-assessed after the procedure. After I obtained informed consent, the scope was passed under direct vision. Throughout the procedure, the patient's blood pressure, pulse, and oxygen saturations were monitored continuously. The Colonoscope was introduced through the anus and advanced to the ileocecal valve. The colonoscopy was performed without difficulty. The patient tolerated the procedure well. The quality of the bowel preparation was adequate. The ileocecal valve and the rectum were photographed. Scope In: 12:03:19 PM Scope Withdrawal Time 0 hours 8 minutes 30 seconds Scope Out: 12:17:39 PM Total Procedure Duration Time 0 hours 14 minutes 20 seconds Findings: The perianal and digital rectal examinations were normal. A few small-mouthed diverticula were found in the recto-sigmoid colon and sigmoid colon. Localized mild inflammation characterized by erosions and erythema was found in the sigmoid colon. Biopsies were taken with a cold forceps for histology. Verification of patient identification for the specimen was done. Estimated blood loss was minimal. The exam was otherwise normal throughout the examined colon. Impression: - Diverticulosis in the recto-sigmoid colon and in the sigmoid colon. - Localized mild inflammation was found in the sigmoid colon secondary to colitis. Biopsied. Recommendation: - Discharge patient to home. - Resume previous diet. - Continue present medications. - Await pathology results. - Repeat colonoscopy in 5 years for surveillance based on pathology results. Procedure Code(s): --- Professional --- 03500, Colonoscopy, flexible; with biopsy, single or multiple CPT copyright 2021 [employer]. All rights reserved. The codes documented in this report are preliminary and upon vat house supervisor review may be revised to meet current compliance requirements. nAdreas Oliva DO 10/24/2023 12:24:22 PM This report has been signed electronically. Number of Addenda: 0 Note Initiated On: 10/24/2023 11:53 AM
--- NOTE | 2023-10-24 12:25 | OP.CCLET_ITS ---
10/24/2023 Naina Da Silva [facility], Systems Development Manager-c Re : Colonoscopy procedure for Marion Gutierrez Dear Avinash This procedure was performed on Tuesday, October 24, 2023. My impressions and recommendations are as follows: Impressions : - Diverticulosis in the recto-sigmoid colon and in the sigmoid colon. - Localized mild inflammation was found in the sigmoid colon secondary to colitis. Biopsied. Recommendations : - Discharge patient to home. - Resume previous diet. - Continue present medications. - Await pathology results. - Repeat colonoscopy in 5 years for surveillance based on pathology results. My findings are described in the full procedure note, which is enclosed. If I can be of further assistance, please feel free to contact me at . Sincerely, Andreas Oliva, 10/24/2023 12:24:22 PM This report has been signed electronically.
--- NOTE | 2023-10-24 12:28 | PCM.POST.ANE ---
Anesthesia: Postop Eval I Current Vital Signs Temperature: 97 F Pulse Rate: 97 Blood Pressure: 111/62 Respiratory Rate: 18 Pulse Ox: 100 Oxygen Delivery Method: Room Air Assessment Airway patent: Yes Spontaneous unlabored respirations: Yes Mental status: Awake and Calm nausea: No Vomiting: No Anesthesia Complication: No Fluid Hydration Crystalloid volume administer (ml): 400 Total IV fluid infused: 400 Progress Note Anesthesia document: Postop Eval 1 completed: Yes
--- NOTE | 2023-10-24 12:58 | PCM.POSTANE2 ---
Anesthesia Postop Eval I Sum Postop Eval Completion status Anesthesia document: Postop Eval 1 completed: Yes Anesthesia Postop Eval I Summary Anesthesia Postop Eval I Summary: Anesthesia Postop Eval I: Assessment Summary Airway patent Yes 10/24/23 12:29 [email or web address] Spontaneous unlabored Yes 10/24/23 12:29 [email or web address] respirations Mental status Awake,Calm 10/24/23 12:29 [email or web address] nausea No 10/24/23 12:29 [email or web address] Vomiting No 10/24/23 12:29 [email or web address] Anesthesia Postop Eval I: Fluid Summary Crystalloid volume administer 400 10/24/23 12:29 [email or web address] (ml) Colloids volume administered ( ml) Blood Product volume administered (ml) Total IV fluid infused 400 10/24/23 12:29 [email or web address] Anesthesia Postop Eval I: Summary Notes Anesthesia Complication No 10/24/23 12:29 [email or web address] Anesthesia Complication Comment: Post-operative progress note Anesthesia: Postop Eval II Evaluation Mental status: Awake Pain Level: 0 nausea: No Vomiting: No
[2023-10-24 13:02] LABS: Bedside Glucose 90 mg/dL (74-106)
== END 2023-10-24 13:18 | disposition home or self-care (01) ==
LOC: EN 10:48 → AC 10:49
PROVIDERS: PCP Nurse Practitioner Family; Referring Provider Nurse Practitioner Family; Visit Provider Internal Medicine Gastroenterology
PROC: 0DJD8ZZ Inspection of Lower Intestinal Tract, Via Natural or Artificial Opening Endoscopic (ICD-10-PCS; CPT 45378; principal; 2023-10-24 11:55)
DX: R10.12 Left upper quadrant pain (principal); K57.30 Diverticulosis of large intestine without perforation or abscess without bleeding; K52.9 Noninfective gastroenteritis and colitis, unspecified
CPT/HCPCS: 45380; 82962; 88305; J7120

== ENCOUNTER → 2023-11-21 | Outpatient (CLI) | payer MEDICAID, SELFPAY ==
--- NOTE | 2023-11-21 11:45 | VDUE_ITS ---
Reason For Study: LUE Swelling Left Proximal Left jugular vein is spontaneous, widely patent, phasic, with no intraluminal echogenicity noted. Left subclavian vein is spontaneous, widely patent, phasic, with no intraluminal echogenicity noted. Left Arm Left axillary vein is spontaneous, patent, phasic, competent, compressible and demonstrates augmentation. Left brachial vein is compressible. Left cephalic vein is compressible. Left basilic vein is compressible. Left Lower Arm Left radial vein is compressible. Left ulnar vein is compressible. Patient Safety LUE Venous duplex with B-Mode, color and pulsed wave doppler. Preliminary results faxed to Naina Da Silva at [facility]. VL/Venous Duplex US, Unilateral Interpretation Summary Deep veins of the left upper extremity are patent and compressible segmentally. There is no evidence of deep vein thrombosis. The superficial veins of the left upper extremity, the basilic and cephalic veins, are patent and compressible. There is no evidence of left upper extremit y superficial thrombophlebitis involving the veins imaged. Ordering Physician: Naina Da Silva Referring Physician: Naina Da Silva Performed By: Tylor Encarnacion, GRETTA ???
== END | disposition home or self-care (01) ==
LOC: CVS 11:39
PROVIDERS: PCP Nurse Practitioner Family; Referring Provider Nurse Practitioner Family; Visit Provider Nurse Practitioner Family
DX: R22.32 Localized swelling, mass and lump, left upper limb (principal)
CPT/HCPCS: 93971

== ENCOUNTER 2023-11-27 19:59 | Emergency (ER) | payer MEDICAID, SELFPAY ==
[2023-11-27 19:59] VITALS: BP 148/85; PULSE 84; RESP 18; TEMP 36.6; O2SAT 100; BMI 49.0
--- NOTE | 2023-11-27 20:27 | EDS_ITS ---
HPI History of Present Illness Chief Complaint: Upper Extremity Injury Detail of Chief Complaint: Right arm pain Informant: patient Narrative Narrative: Patient presents with right arm pain that started today. She states that last week she had pain in her left arm from the elbow down to the hand that was a burning sensation. That seemed to improve and today developed same type of burning pain in the right arm from the elbow down to the hand. She denies any neck pain. She denies any injuries. She denies weakness in extremities. Patient is a diabetic. Several weeks ago she had similar discomfort in her lower extremities. Patient tells me she had an ultrasound of her left upper extremity to rule out DVT last week and it was negative. She denies recent travel or surgery. Patient does have history of bipolar disorder as well as autism. Patient is on lithium as well. [facility] Medical History Alcohol use Picking own skin Low iron Fatty liver Gastroparesis Cardiology follow-up encounter Palpitations Obesity Depression Diabetes GERD (gastroesophageal reflux disease) Irregular heart beat Cellulitis History of echocardiogram Wears glasses Bipolar disorder Anxiety Arthritis Back pain Migraine headache Syncope Non-smoker Bipolar 1 disorder PCOS (polycystic ovarian syndrome) IBS (irritable bowel syndrome) Migraines Autism Home Medications ?Medication ?Instructions ?Recorded ?Last Taken ?Type lithium carbonate 300 mg capsule 300 mg PO DAILY Bipolar 04/05/17 10/22/23 History ferrous sulfate 325 mg (65 mg 325 mg PO QODAY supplement 01/24/22 10/21/23 History iron) tablet (FeroSul) lithium carbonate 600 mg capsule 600 mg PO QHS mental health 01/24/22 10/22/23 History fremanezumab-vfrm 225 mg/1.5 mL 225 mg subcut QMONTH migraine 10/03/22 11/21/22 History subcutaneous auto-injector (Ajovy) aripiprazole lauroxil 441 mg/1.6 441 mg IM .COMPLEX mental health 12/18/22 10/23/23 History mL suspension, ext.rel. IM syringe (Aristada) cholecalciferol (vitamin D3) 25 25 mcg PO DAILY vitamin 12/18/22 10/22/23 History mcg (1,000 unit) tablet (Vitamin D3) imipramine HCl 25 mg tablet 25 mg PO DAILY mental health 12/18/22 10/22/23 History mecobalamin (vitamin B12) 1,000 1,000 mcg PO DAILY 03/20/23 10/22/23 History mcg lozenges metoclopramide HCl 10 mg tablet 5 mg (1/2 x 10 mg) PO BID nausea 05/28/23 10/22/23 Rx (Reglan) and vomiting #28 tabs pantoprazole 40 mg tablet,delayed 40 mg PO DAILY 06/03/23 10/22/23 History release simvastatin 20 mg tablet 20 mg PO QHS 06/03/23 10/22/23 History lactulose 10 gram/15 mL oral 30 g (45 mL) PO BID PRN 09/28/23 10/21/23 Rx solution constipation #473 mL hyoscyamine sulfate 0.125 mg tablet 0.125 mg PO BID-QID PRN dyspepsia 10/10/23 10/21/23 Rx #30 tabs medroxyprogesterone 10 mg tablet 10 mg PO .COMPLEX #30 tabs 10/17/23 10/22/23 Rx polyethylene glycol 3350 17 4 g PO ONCE PRN constipation 10/17/23 10/24/23 History gram/dose oral powder (Miralax) spironolactone 50 mg tablet 50 mg PO BID diuretic 10/17/23 10/22/23 History metoprolol tartrate 50 mg tablet 50 mg PO BID #180 tabs 10/19/23 10/22/23 Rx sucralfate 1 gram tablet 1 g PO TID PRN constipation 10/19/23 10/21/23 History diphenoxylate-atropine 2.5 1 tab PO BID PRN diarrhea #30 tabs 10/29/23 Unknown Rx mg-0.025 mg tablet (Lomotil) Allergy/AdvReac Type Severity Reaction Status Date / Time metformin Allergy Mild Nausea/Vom/ Verified 11/27/23 19:59 Diarrhea pollen extracts Allergy Hives Verified 11/27/23 19:59 escitalopram (From Lexapro) AdvReac Other Verified 11/27/23 19:59 lactase (From Dairy Aid) AdvReac Upset Verified 11/27/23 19:59 Stomach ondansetron (From Zofran (as AdvReac Anaphylaxis Verified 11/27/23 19:59 hydrochloride)) Family History Mother Uterine cancer Other Asthma Depression Diabetes GERD (gastroesophageal reflux disease) Heart disease Hyperlipidemia Hypertension Surgical History History of colonoscopy History of esophagogastroduodenoscopy (EGD) History of tonsillectomy and adenoidectomy H/O knee surgery H/O spinal fusion Social History household members: none housing: apartment current occupational status: unemployed history of recent travel: No Smoking Status: Never smoker alcohol intake: current alcohol intake frequency: holidays/special occasions only substance use type: does not use caffeine: Yes Type: carbonated beverages what type of physical activity do you participate in: walking frequency: daily seatbelt use: always do you feel safe at home: Yes additional social history: single ROS ROS ED Review of Systems ROS Unobtainable: other Constitutional Constitutional ED: Reports lethargy; Denies chills, fever(s), sweats or weight loss Eyes Eyes: Denies blurry vision, change in vision or diplopia ENT ENT ED: Denies rhinorrhea or sore throat Cardiovascular Cardiovascular: Denies chest pain, orthopnea or racing heartbeat Respiratory/Chest Respiratory/Chest: Denies cough, dyspnea, dyspnea on exertion, orthopnea or sputum Gastrointestinal Gastrointestinal: Denies abdominal pain, diarrhea, nausea or vomiting Genitourinary Genitourinary ED: Denies dysuria, hematuria or urinary frequency Musculoskeletal Musculoskeletal: Reports other Details: Right arm pain ; Denies arthralgias, back pain, myalgias or neck pain Integumentary Denies abscess, Abrasions or rash Neurologic Neurologic: Denies headache(s) or weakness Psychiatric Psychiatric: Denies anxiety, depression or suicidal thoughts Endocrine Endocrinology: Denies polydipsia, polyphagia or polyuria Hematologic/Lymphatic Hematologic/Lymphatic: Denies easy bleeding, easy bruising or lymphadenopathy Allergic/Immunologic Allergic/Immunologic ED: Denies mouth swelling, tongue swelling or urticaria EXAM Physical Exam Const Vital Signs: 11/27/23 19:59 Temperature 98 F Temperature Source Oral Pulse Rate 84 Respiratory Rate 18 Blood Pressure 148/85 H Blood Pressure Mean 106 Pulse Ox 100 Oxygen Delivery Method Room Air Positive well nourished and well developed General Appearance ED: well developed and NAD HEENT Reports TM's clear and moist mucous membranes normocephalic and atraumatic; Negative for trauma or tenderness Tympanic Membrane ED: Yes TM's clear Eyes PERRL and EOMs intact bilaterally General Eye ED: Negative for pale conjunctiva or scleral icterus Neck no lymphadenopathy, supple and no JVD General: Negative for tenderness Chest Wall inspection of chest normal and palpation of chest normal Chest: Negative for tenderness Resp normal respiratory effort and clear to auscultation bilaterally Effort and Inspection: Negative for respiratory distress or pain with movement Auscultation: Negative for rhonchi, wheezes or diminished lung sounds Cardio regular rate, regular rhythm, S1 normal heart sound, S2 normal heart sound and no murmurs Peripheral Pulses: pulses 2+ throughout GI normal to inspection, nondistended, normoactive bowel sounds, soft to palpation, non-tender, non-distended and no masses Back/Spine no CVA tenderness and no thoracic nor lumbar tenderness Extremity normal to inspection General Extremety ED: Negative for edema General Extremity: Negative for edema Neuro oriented x3, CN's II-XII intact bilaterally, no sensory deficits noted and gait normal Neuro Narrative: Deep tendon reflexes plus 2 out of 4 bilaterally at the bicep, tricep, and brachioradialis. Patient has normal patellar and Achilles tendon reflexes are plus 2 out of 4. No focal weakness on exam. Sensorium / Orientation: awake, alert, oriented to person, oriented to place and oriented to time Motor Exam: strength 5/5 throughout and strength abnormal Psych mental status grossly normal Skin no rashes or lesions noted and no wounds MDM MDM MDM Narrative Medical decision making narrative: Patient complains of burning pain in the right arm from the elbow down to the hand. Similar symptoms to the left side that are now mostly resolved. She has had similar symptoms in the lower extremities weeks ago. Patient is a type II diabetic. Patient also on lithium. I did obtain a D-dimer which was negative. Electrolytes unremarkable. [place] level was 0.4. This point I offered them pa in medication but patient would like to continue with ibuprofen or Tylenol for discomfort. In the differential would be neuropathy related to diabetes. Suspicion is low for cervical radiculopathy as she has no neck pain and no involvement of the upper arms. Patient advised to follow-up with her primary care physician within next 3 to 5 days. Discharge Plan Triage Chief Complaint: Upper Extremity Injury ED Provider: Paolo Weems Dx/Rx/DC Orders Clinical Impression: Arm pain, right, Neuropathy Instructions: ED Neuropathy, Peripheral, ED Pain, Acute, Uncertain Cause Prescriptions: No Action Ajovy Autoinjector 225 mg/1.5 mL auto-injector 225 mg subcut QMONTH Patient Comments: PT STATES USES BETWEEN FIRST AND FIFTH OF EACH MONTH; hasn't started yet medroxyprogesterone 10 mg tablet 10 mg PO .COMPLEX Qty: 30 4RF Rx Instructions: 10 mg orally first 10 days each month; T mecobalamin (vitamin B12) 1,000 mcg lozenge 1,000 mcg PO DAILY Rx Instructions: allow to dissolve in mouth OR may chew lightly before swallowing metoprolol tartrate 50 mg tablet 50 mg PO BID Qty: 180 3RF hyoscyamine sulfate 0.125 mg tablet 0.125 mg PO BID-QID PRN (Reason: dyspepsia) Qty: 30 0RF lithium carbonate 300 MG capsule 300 mg PO DAILY lithium carbonate 600 mg Capsule 600 mg PO QHS ferrous sulfate [FeroSul] 325 mg (65 mg iron) tablet 325 mg PO QODAY imipramine HCl 25 mg tablet 25 mg PO DAILY cholecalciferol (vitamin D3) [Vitamin D3] 25 mcg (1,000 unit) tablet 25 mcg PO DAILY Aristada 441 mg/1.6 mL suspension,extended rel syring 441 mg IM .COMPLEX Rx Instructions: 441 mg intramuscularly Q28D; polyethylene glycol 3350 [Miralax] 17 gram/dose powder 4 g PO ONCE PRN (Reason: constipation) spironolactone 50 mg tablet 50 mg PO BID Rx Instructions: TAKE 1 TABLET BY MOUTH TWICE A DAY sucralfate 1 gram tablet 1 g PO TID PRN (Reason: constipation) Rx Instructions: 1 g orally Take on an empty stomach. Hour before meals-lunch and dinner; do not take within 2 hours before or after lithium simvastatin 20 mg tablet 20 mg PO QHS pantoprazole 40 mg tablet,delayed release (DR/EC) 40 mg PO DAILY metoclopramide HCl [Reglan] 10 mg tablet 5 mg PO BID Qty: 28 11RF lactulose 10 gram/15 mL solution 30 g PO BID PRN (Reason: constipation) Qty: 473 1RF diphenoxylate-atropine [Lomotil] 2.5-0.025 mg tablet 1 tab PO BID PRN (Reason: diarrhea) Qty: 30 2RF Primary Care Provider: Naina Da Silva Referrals: Naina Da Silva, [employer] [Primary Care Provider] - 3-5 Days Print Language: Mauritanian Disposition Disposition: Home, Self Care
[2023-11-27 21:13] LABS: D-Dimer Quantitative (DVT/PE) 0.27 FEU/ug/m (0.27-0.49)
[2023-11-27 21:54] LABS: Anion Gap 4 (5-15); BUN 16 mg/dL (7-18); BUN/Creat Ratio 26.1 RATIO (10-20); Calcium,Total 8.9 mg/dL (8.5-10.1); Chloride 110 mmol/L (98-107); Creatinine, Serum 0.61 mg/dL (0.55-1.02); EST Glomerular Filtration Rate 124 mL/min (>60); Est Glom Filt Rate - Afr Amer 150 mL/min (>60); Estimated Creatinine Clearance 198.44 ml/min; Glucose 116 mg/dL (74-106); Potassium 5.1 mmol/L (3.5-5.1); Sodium Level 138 mmol/L (136-145)
[2023-11-27 22:08] VITALS: BP 129/83; PULSE 71; RESP 18; TEMP 36; O2SAT 97
== END 2023-11-27 22:10 | disposition home or self-care (01) ==
PROVIDERS: Emergency Provider Emergency Medicine; PCP Nurse Practitioner Family; Visit Provider Emergency Medicine
DX: E11.40 Type 2 diabetes mellitus with diabetic neuropathy, unspecified (principal); F31.9 Bipolar disorder, unspecified; F84.0 Autistic disorder; Z79.899 Other long term (current) drug therapy; G43.909 Migraine, unspecified, not intractable, without status migrainosus; K21.9 Gastro-esophageal reflux disease without esophagitis; M79.601 Pain in right arm
CPT/HCPCS: 80048; 80178; 85379; 99282; J7030; A4216

== ENCOUNTER 2023-12-19 09:45 | Outpatient (RCR) | payer MEDICAID, SELFPAY ==
[2023-12-05 09:26] VITALS: BP 131/75; PULSE 78; RESP 18; TEMP 36.1
--- NOTE | 2023-12-05 10:11 | HP.PCM_ITS ---
History of Present Illness Date of Service: 12/05/23 Chief Complaint: Left breast abscesses History of Wound: 28-year-old white female with history of psych gastroparesis uncontrolled diabetes obesity shows up with that she likes to pick at wounds it with a open wound on her left breast for the last 6 months. Patient states this is not uncommon and that she usually has them for years. Mother complains that her skin is so dry and itchy. I suggested they buy some AmLactin cream for her to rub and rather than scratch her skin. Cultures will be obtained today with wound dressing changes. FORMERLY [facility], [facility] Medical History Alcohol use Picking own skin Low iron Fatty liver Gastroparesis Cardiology follow-up encounter Palpitations Obesity Depression Diabetes GERD (gastroesophageal reflux disease) Irregular heart beat Cellulitis History of echocardiogram Wears glasses Bipolar disorder Anxiety Arthritis Back pain Migraine headache Syncope Non-smoker Bipolar 1 disorder PCOS (polycystic ovarian syndrome) IBS (irritable bowel syndrome) Migraines Autism Home Medications ?Medication ?Instructions ?Recorded ?Last Taken ?Type lithium carbonate 300 mg capsule 300 mg PO DAILY Bipolar 04/05/17 10/22/23 History ferrous sulfate 325 mg (65 mg 325 mg PO QODAY supplement 01/24/22 10/21/23 History iron) tablet (FeroSul) lithium carbonate 600 mg capsule 600 mg PO QHS mental health 01/24/22 10/22/23 History fremanezumab-vfrm 225 mg/1.5 mL 225 mg subcut QMONTH migraine 10/03/22 11/21/22 History subcutaneous auto-injector (Ajovy) aripiprazole lauroxil 441 mg/1.6 441 mg IM .COMPLEX mental health 12/18/22 10/23/23 History mL suspension, ext.rel. IM syringe ([place]) cholecalciferol (vitamin D3) 25 25 mcg PO DAILY vitamin 12/18/22 10/22/23 History mcg (1,000 unit) tablet (Vitamin D3) imipramine HCl 25 mg tablet 25 mg PO DAILY mental health 12/18/22 10/22/23 History mecobalamin (vitamin B12) 1,000 1,000 mcg PO DAILY 03/20/23 10/22/23 History mcg lozenges metoclopramide HCl 10 mg tablet 5 mg (1/2 x 10 mg) PO BID nausea 05/28/23 10/22/23 Rx (Reglan) and vomiting #28 tabs pantoprazole 40 mg tablet,delayed 40 mg PO DAILY 06/03/23 10/22/23 History release simvastatin 20 mg tablet 20 mg PO QHS 06/03/23 10/22/23 History lactulose 10 gram/15 mL oral 30 g (45 mL) PO BID PRN 09/28/23 10/21/23 Rx solution constipation #473 mL hyoscyamine sulfate 0.125 mg tablet 0.125 mg PO BID-QID PRN dyspepsia 10/10/23 10/21/23 Rx #30 tabs medroxyprogesterone 10 mg tablet 10 mg PO .COMPLEX #30 tabs 10/17/23 10/22/23 Rx polyethylene glycol 3350 17 4 g PO ONCE PRN constipation 10/17/23 10/24/23 History gram/dose oral powder (Miralax) spironolactone 50 mg tablet 50 mg PO BID diuretic 10/17/23 10/22/23 History metoprolol tartrate 50 mg tablet 50 mg PO BID #180 tabs 10/19/23 10/22/23 Rx sucralfate 1 gram tablet 1 g PO TID PRN constipation 10/19/23 10/21/23 History diphenoxylate-atropine 2.5 1 tab PO BID PRN diarrhea #30 tabs 10/29/23 Unknown Rx mg-0.025 mg tablet (Lomotil) Allergy/AdvReac Type Severity Reaction Status Date / Time metformin Allergy Mild Nausea/Vom/ Verified 11/27/23 19:59 Diarrhea pollen extracts Allergy Hives Verified 11/27/23 19:59 escitalopram (From Lexapro) AdvReac Other Verified 11/27/23 19:59 lactase (From Dairy Aid) AdvReac Upset Verified 11/27/23 19:59 Stomach ondansetron (From Zofran (as AdvReac Anaphylaxis Verified 11/27/23 19:59 hydrochloride)) Family History Mother Uterine cancer Other Asthma Depression Diabetes GERD (gastroesophageal reflux disease) Heart disease Hyperlipidemia Hypertension Surgical History History of colonoscopy History of esophagogastroduodenoscopy (EGD) History of tonsillectomy and adenoidectomy H/O knee surgery H/O spinal fusion Social History household members: none housing: apartment current occupational status: unemployed history of recent travel: No Smoking Status: Never smoker alcohol intake: current alcohol intake frequency: holidays/special occasions only substance use type: does not use caffeine: Yes Type: carbonated beverages what type of physical activity do you participate in: walking frequency: daily seatbelt use: always do you feel safe at home: Yes additional social history: single ROS Constitutional Constitutional: Reports systems reviewed and no addt'l complaints, except as documented Eyes Eyes: Reports systems reviewed and no addt'l complaints, except as documented ENT HEENT: Reports systems reviewed and no addt'l complaints, except as documented Cardiovascular Cardiovascular: Reports systems reviewed and no addt'l complaints, except as documented Respiratory/Chest Respiratory/Chest: Reports systems reviewed and no addt'l complaints, except as documented Gastrointestinal Gastrointestinal: Reports systems reviewed and no addt'l complaints, except as documented Genitourinary Genitourinary: Reports systems reviewed and no addt'l complaints, except as documented Musculoskeletal Musculoskeletal: Reports systems reviewed and no addt'l complaints, except as documented Integumentary Integumentary: Reports wounds and other Details: Open wound left breast hyper granulated tissue on upon old scarring from previous wounds that [place] area. Neurologic Neurologic: Reports systems reviewed and no addt'l complaints, except as documented Psychiatric Psychiatric: Reports systems reviewed and no addt'l complaints, except as documented Endocrine Endocrinology: Reports systems reviewed and no addt'l complaints, except as documented Hematologic/Lymphatic Hematologic/Lymphatic: Reports systems reviewed and no addt'l complaints, except as documented Allergic/Immunologic Allergic/Immunologic: Reports systems reviewed and no addt'l complaints, except as documented Vital Signs Vital Signs Vital Signs: 12/05/23 09:26 Temperature 97 F L Temperature Source Temporal Pulse Rate 78 Respiratory Rate 18 Blood Pressure 131/75 H Blood Pressure Mean 93 Blood Pressure Source Monitor Blood Pressure Position Sitting Blood Pressure Location Right Forearm Oxygen Delivery Method Room Air Physical Exam Const oriented x3 General Appearance: cooperative Exam Limitations: no limitations HEENT normocephalic Head and Scalp: normal to inspection Face and Sinus: normal facial exam Eyes General Eye: normal appearance of both eyes Neck full ROM General: normal visual inspection Resp normal respiratory effort Effort and Inspection: able to speak in complete sentences Auscultation: clear to auscultation bilaterally Cardio regular rate and regular rhythm Palpation: normal PMI Rate: regular rate Rhythm: regular rhythm GI Palpation: soft and no hepatosplenomegaly Back/Spine Cervical Spine: cervical ROM normal Thoracic Spine / Upper Back: normal to inspection Lumbar Spine / Lower Back: normal to inspection Extremity normal to inspection General Extremity: normal exam except as noted Skin Wounds: wounds noted Wound Narrative: Open hyper granulated tissue over wounds and old scars from previous wounds same spots. Neuro oriented x3 Speech: speech normal Sensory Exam: extremities Psych Appearance: grossly normal Speech: normal speech Thought Content: normal thought content Judgement: judgement good Debridement Note Debridement Note Wound debrided: Left breast wounds Type of Debridement: Excisional debridement Anesthesia Used: 5% Lidocaine Gel Depth: Down to and including healthy tissue Percentage of wound debrided: 100 Instrument Used: 5mm curette Tissue Removed: Fibrin Severity: Fat Layer Exposed Amount of bleeding with debridement: Mild Bleeding Controlled with: Compression and gauze Patient tolerated procedure: Patient tolerated procedure well Post-Debridement Measurements and Additional Note: Post-Debridement Measurements/Treatment - Nurse 1 - General Ulcer Assessment Start: 12/05/23 09:24 Freq: Status: Active Protocol: [email or web address] Activity Type Activity Date Activity User E-sign Co-sign Detail Recorded Client Recorded Date Recorded By Document 12/05/23 09:26 AK [id number] 12/05/23 09:37 AK Document 12/05/23 09:50 AK [id number] 12/05/23 09:53 AK 12/05/23 12/05/23 09:26 09:50 - Today's Visit Information Type of service 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 ) Arrival Mode Ambulatory Accompanied by mother myranda Patient Identification Verified (Name & Yes ) Safety Precautions Fall Prevention Blood Sugar Stated by Patient Vital Signs Temperature (97.8 F-99.1 F) 97 F L Temperature Source Temporal Pulse Rate (60-100) 78 Pulse Location Monitor Respiratory Rate (12-18) 18 Respiratory rate source Observation Oxygen Delivery Method Room Air Blood Pressure (90/60-120/80) 131/75 H Blood Pressure Mean 93 Source Monitor Position Sitting Blood Pressure Location Right Forearm History Since Last Visit- (Skip if this is Patient's initial visit) Left Footwear Regular Shoe Right Footwear Regular Shoe Pain Scale: 0-10 Numeric Is Patient Pain Free? Yes Yes WC - Nurse 1 - General Ulcer Measurement Start: 12/05/23 09:24 Freq: Status: Active Protocol: Activity Type Activity Date Activity User E-sign Co-sign Detail Recorded Client Recorded Date Recorded By Document 12/05/23 09:26 MT [id number] 12/05/23 09:37 MT Edit Result 12/05/23 09:26 MT (1) [id number] 12/05/23 10:10 BMF Document 12/05/23 09:50 MT [id number] 12/05/23 09:53 MT (1) #2 Inferior Left Breast - Exudate Amt => Medium - Exudate Type => Serosanguineous #1 Left Superior Breast - Exudate Amt => Medium - Exudate Type => Serosanguineous 12/05/23 12/05/23 09:26 09:50 Wound Center Nurse 1 #2 Inferior Left Breast -Current Size (cm) - Length 0.9 -Current Size (cm) - Width 2.5 -Current Size (cm) - Depth 0.1 -Total Square Cm 2.25 -Undermining/Tunneling No -Circular Undermining No -Change in Wound Grade/Stage No -Exudate Amt Medium None Present -Exudate Type Serosanguineous -Wound Margin Flat & Intact -Granulation Amt Large (67-100%) -Granulation Quality Pale,[place] -Slough/Fibrin No -Necrosis Amt None Present (0 %) -Texture (Christel-wound Skin Appearance) Assessed -Moisture (Christel-wound Skin Appearance) Assessed -Color (Christel-wound Skin Appearance) Assessed -Temperature (Christel-wound Skin No Abnormality Appearance) (Pt Warm) -Tenderness on Palpation (Christel-wound No Skin Appearance) -Ulcer Cleansing Soap and Water -Foul Odor after Cleansing No -Anesthetic Used 4% Lidocaine Solution #1 Left Superior Breast -Current Size (cm) - Length 1 -Current Size (cm) - Width 2.5 -Current Size (cm) - Depth 0.1 -Total Square Cm 2.5 -Date of Last Picture (Recall this 12/05/23 12/05/23 field) -Photo Taken Yes Yes -Tunneling No -Undermining/Tunneling No -Circular Undermining No -Exudate Amt Medium None Present -Exudate Type Serosanguineous -Wound Margin Flat & Intact -Granulation Amt None Present (0 %) -Slough/Fibrin No -Texture (Christel-wound Skin Appearance) Assessed -Moisture (Christel-wound Skin Appearance) Assessed -Color (Christel-wound Skin Appearance) Assessed -Temperature (Christel-wound Skin No Abnormality Appearance) (Pt Warm) -Tenderness on Palpation (Christel-wound No Skin Appearance) -Foul Odor after Cleansing No -Anesthetic Used 4% Lidocaine Solution Lower Limb Edema Present NA WC - Nurse 2 - General Ulcer CM Notes Start: 12/05/23 09:24 Freq: Status: Active Protocol: Activity Type Activity Date Activity User E-sign Co-sign Detail Recorded Client Recorded Date Recorded By Document 12/05/23 09:46 BMF [id number] 12/05/23 09:54 BMF Edit Result 12/05/23 09:46 BMF (1) [id number] 12/05/23 10:07 BMF (1) #2 Inferior Left Breast - Post Debridement (cm) - Length 0.1 => 0.9 - Post Debridement (cm) - Width 0.1 => 2.5 - Total Square (Post) (cm) 0.01 => 2.25 - Area of Debridement (cm) - Length 0.1 => 0.9 - Area of Debridement (cm) - Width 0.1 => 2.5 - Total Square (Area) (cm) 0.01 => 2.25 - Bleeding Controlled with Pressure => Pressure,Silver => Nitrate #1 Left Superior Breast - Post Debridement (cm) - Length 0.1 => 1 - Post Debridement (cm) - Width 0.1 => 2.5 - Total Square (Post) (cm) 0.01 => 2.5 - Area of Debridement (cm) - Length 0.1 => 1 - Area of Debridement (cm) - Width 0.1 => 2.5 - Total Square (Area) (cm) 0.01 => 2.5 - Bleeding Controlled with Pressure => Pressure,Silver => Nitrate 12/05/23 09:46 Wound Center Nurse 2 #2 Inferior Left Breast -Time 09:47 -Correct Patient Yes -Correct Side, Site, Position Yes -Correct Procedure Yes -Procedure Performed Yes -Type of Procedure Debridement -Clinical Debridement Subcutaneous -Tissue Removed Subcutaneous -Post Debridement (cm) - Length 0.9 -Post Debridement (cm) - Width 2.5 -Post Debridement (cm) - Depth 0.1 -Total Square (Post) (cm) 2.25 -Area of Debridement (cm) - Length 0.9 -Area of Debridement (cm) - Width 2.5 -Total Square (Area) (cm) 2.25 -Tunneling No -Undermining/Tunneling No -Circular Undermining No -Wound/Ulcer Outcome Not Healed -Ulcer Cleansing Rinsed/ Irrigated with Saline -Foul Odor after Cleansing No -Bioengineered Tissue No -Bleeding Controlled with Pressure,Silver Nitrate -Treatment Response Procedure Tolerated Well -Debridement - Subq, 1st 20sq cm No #1 Left Superior Breast -Time 09:49 -Correct Patient Yes -Correct Side, Site, Position Yes -Correct Procedure Yes -Procedure Performed Yes -Type of Procedure Debridement -Clinical Debridement Subcutaneous -Tissue Removed Subcutaneous -Post Debridement (cm) - Length 1 -Post Debridement (cm) - Width 2.5 -Post Debridement (cm) - Depth 0.1 -Total Square (Post) (cm) 2.5 -Area of Debridement (cm) - Length 1 -Area of Debridement (cm) - Width 2.5 -Total Square (Area) (cm) 2.5 -Tunneling No -Undermining/Tunneling No -Circular Undermining No -Wound/Ulcer Outcome Not Healed -Ulcer Cleansing Rinsed/ Irrigated with Saline -Foul Odor after Cleansing No -Bioengineered Tissue No -Bleeding Controlled with Pressure,Silver Nitrate -Treatment Response Procedure Tolerated Well -Debridement - Subq, 1st 20sq cm Yes Pain Scale: 0-10 Numeric Is Patient Pain Free? Yes WC - Nurse 3 - General Ulcer D/C NN Start: 12/05/23 09:24 Freq: Status: Active Protocol: Activity Type Activity Date Activity User E-sign Co-sign Detail Recorded Client Recorded Date Recorded By Document 12/05/23 10:03 AK [id number] 12/05/23 10:06 AK 12/05/23 10:03 Wound Care Center Nurse 3 #2 Inferior Left Breast -Primary Dressing Applied Fibracol Plus 4x4,Mepilex Border -Fibracol Plus 4x4 2 -Mepilex Border 2 Pain Scale: 0-10 Numeric Is Patient Pain Free? Yes Assessment/Plan Assessment/Plan (1) Abscess of breast: CODE(S): N61.1 - Abscess of the breast and nipple PLAN: Wash area with antibacterial soap and water apply fibber call to wound areas moistened cover with gauze and XL SAP dressings once daily Cultures were obtained will call this next week if need to be on antibiotic therapy Needs to clip nails and wash under fingernails very good Buy AmLactin cream for dry skin lotion to use instead of scratching on any area Follow-up in 2 weeks (2) Nonhealing nonsurgical wound: CODE(S): T14.8XXA - Other injury of unspecified body region, initial encounter
--- NOTE | 2023-12-06 11:39 | WC ---
PHOTO 12/05/23 SUPERIOR LEFT BREAST
--- NOTE | 2023-12-06 11:40 | WC ---
PHOTO 12/05/23 LEFT BREAST
[2023-12-19 09:53] VITALS: BP 130/81; PULSE 60; RESP 16; TEMP 36.1
--- NOTE | 2023-12-19 10:08 | PCM.WC.PN ---
History of Present Illness Date of Service: 12/19/23 Chief Complaint: Left breast abscesses History of Wound: 28-year-old white female with history of psych gastroparesis uncontrolled diabetes obesity shows up with that she likes to pick at wounds it with a open wound on her left breast for the last 6 months. Patient states this is not uncommon and that she usually has them for years. Mother complains that her skin is so dry and itchy. I suggested they buy some AmLactin cream for her to rub and rather than scratch her skin. Cultures will be obtained today with wound dressing changes. Progress of Wound: Wounds of healed on the left breast patient will be discharged from the wound center Subjective Subjective Patient is appreciative and happy with outcomes Objective Data Objective Data Continue to wash with Hibiclens on the sore areas follow-up as needed but discharge from the wound center Vital Signs: Vital Signs Temp Pulse Resp BP O2 Del Method 96.9 F L 60 16 130/81 H Room Air 12/19/23 09:53 12/19/23 09:53 12/19/23 09:53 12/19/23 09:53 12/05/23 09:26 Oxygen Delivery Method Room Air Lab / Micro Data Attestation: I reviewed the patient's lab results. Micro: Microbiology 12/05/23 09:45 Wound - Breast, Left Gram Stain - Final 12/05/23 09:45 Wound - Breast, Left Wound Culture - Final Staphylococcus epidermidis Presumptive C albicans 12/05/23 09:45 Wound - Breast, Left Anaerobic Culture - Final No anaerobic bacteria isolated. Physical Exam Const oriented x3 General Appearance: cooperative Exam Limitations: no limitations HEENT normocephalic Head and Scalp: normal to inspection Face and Sinus: normal facial exam Eyes General Eye: normal appearance of both eyes Neck full ROM General: normal visual inspection Resp normal respiratory effort Effort and Inspection: able to speak in complete sentences Auscultation: clear to auscultation bilaterally Cardio regular rate and regular rhythm Palpation: normal PMI Rate: regular rate Rhythm: regular rhythm GI Palpation: soft and no hepatosplenomegaly Back/Spine Cervical Spine: cervical ROM normal Thoracic Spine / Upper Back: normal to inspection Lumbar Spine / Lower Back: normal to inspection Extremity normal to inspection General Extremity: normal exam except as noted Skin Wounds: wounds noted Wound Narrative: Open hyper granulated tissue over wounds and old scars from previous wounds same spots. Neuro oriented x3 Speech: speech normal Sensory Exam: extremities Psych Appearance: grossly normal Speech: normal speech Thought Content: normal thought content Judgement: judgement good Debridement Note Debridement Note No debridement was completed: No debridement was completed today Post-Debridement Measurements and Additional Note: Post-Debridement Measurements/Treatment - Nurse 1 - General Ulcer Assessment Start: 12/05/23 09:24 Freq: Status: Active Protocol: TOBIN Activity Type Activity Date Activity User E-sign Co-sign Detail Recorded Client Recorded Date Recorded By Document 12/05/23 09:26 MT [id number] 12/05/23 09:37 MT Document 12/05/23 09:50 MT [id number] 12/05/23 09:53 MT Document 12/19/23 09:53 CP [id number] 12/19/23 09:58 CP 12/05/23 12/05/23 12/19/23 09:26 09:50 09:53 WC - Today's Visit Information Type of service Follow-up Visit Follow-up Visit (Physician/OPERATIONS ANALYST (Physician/OPERATIONS ANALYST ) ) Arrival Mode Ambulatory Ambulatory Accompanied by mother myranda Patient Identification Verified (Name & Yes ) Patient Requires Transmission-Based No Precautions Safety Precautions Fall Prevention Blood Sugar Stated by Patient Vital Signs Temperature (97.8 F-99.1 F) 97 F L 96.9 F L Temperature Source Temporal Temporal Pulse Rate (60-100) 78 60 Pulse Location Monitor Monitor Respiratory Rate (12-18) 18 16 Respiratory rate source Observation Observation Oxygen Delivery Method Room Air Blood Pressure (90/60-120/80) 131/75 H 130/81 H Blood Pressure Mean (mm Hg) 93 97 Source Monitor Monitor Position Sitting Sitting Blood Pressure Location Right Forearm Left Forearm History Since Last Visit- (Skip if this is Patient's initial visit) Have you changed medications since your No last visit? Any new allergies or adverse reactions No Had a fall/change in ADL's that may No increase risk of falls Signs or symptoms of abuse and/or No neglect since last visit Have you been in the hospital since your No last visit? Has dressing in place as prescribed Yes Has compression in place as prescribed N/A Has offloadiing in place as prescribed N/A Experienced any changes in pain level or No management Left Footwear Regular Shoe Right Footwear Regular Shoe Pain Scale: 0-10 Numeric Is Patient Pain Free? Yes Yes Yes WC - Nurse 1 - General Ulcer Measurement Start: 12/05/23 09:24 Freq: Status: Active Protocol: Activity Type Activity Date Activity User E-sign Co-sign Detail Recorded Client Recorded Date Recorded By Document 12/05/23 09:26 MT [id number] 12/05/23 09:37 MT Edit Result 12/05/23 09:26 MT (1) [id number] 12/05/23 10:10 BMF Document 12/05/23 09:50 MT [id number] 12/05/23 09:53 MT Document 12/19/23 09:53 CP [id number] 12/19/23 09:58 CP (1) #2 Inferior Left Breast - Exudate Amt => Medium - Exudate Type => Serosanguineous #1 Left Superior Breast - Exudate Amt => Medium - Exudate Type => Serosanguineous 12/05/23 12/05/23 12/19/23 09:26 09:50 09:53 Wound Center Nurse 1 #2 Inferior Left Breast -Current Size (cm) - Length 0.9 0.1 -Current Size (cm) - Width 2.5 0.1 -Current Size (cm) - Depth 0.1 0.1 -Total Square Cm 2.25 0.01 -Epithelialization Large 67-100% -Undermining/Tunneling No -Circular Undermining No -Change in Wound Grade/Stage No -Exudate Amt Medium None Present None Present -Exudate Type Serosanguineous -Wound Margin Flat & Intact -Granulation Amt Large (67-100%) -Granulation Quality Pale,[place] -Slough/Fibrin No -Necrosis Amt None Present (0 %) -Texture (Christel-wound Skin Appearance) Assessed -Moisture (Christel-wound Skin Appearance) Assessed -Color (Christel-wound Skin Appearance) Assessed -Temperature (Christel-wound Skin No Abnormality Appearance) (Pt Warm) -Tenderness on Palpation (Christel-wound No Skin Appearance) -Ulcer Cleansing Soap and Water -Foul Odor after Cleansing No -Anesthetic Used 4% Lidocaine Solution #1 Left Superior Breast -Current Size (cm) - Length 1 0.1 -Current Size (cm) - Width 2.5 0.1 -Current Size (cm) - Depth 0.1 0.1 -Total Square Cm 2.5 0.01 -Date of Last Picture (Recall this 12/05/23 12/05/23 field) -Photo Taken Yes Yes -Epithelialization Large 67-100% -Tunneling No -Undermining/Tunneling No -Circular Undermining No -Exudate Amt Medium None Present None Present -Exudate Type Serosanguineous -Wound Margin Flat & Intact -Granulation Amt None Present (0 %) -Slough/Fibrin No -Texture (Christel-wound Skin Appearance) Assessed -Moisture (Christel-wound Skin Appearance) Assessed -Color (Christel-wound Skin Appearance) Assessed -Temperature (Christel-wound Skin No Abnormality Appearance) (Pt Warm) -Tenderness on Palpation (Christel-wound No Skin Appearance) -Foul Odor after Cleansing No -Anesthetic Used 4% Lidocaine Solution Lower Limb Edema Present NA WC - Nurse 2 - General Ulcer CM Notes Start: 12/05/23 09:24 Freq: Status: Active Protocol: Activity Type Activity Date Activity User E-sign Co-sign Detail Recorded Client Recorded Date Recorded By Document 12/05/23 09:46 BMF [id number] 12/05/23 09:54 BMF Edit Result 12/05/23 09:46 BMF (1) [id number] 12/05/23 10:07 BMF (1) #2 Inferior Left Breast - Post Debridement (cm) - Length 0.1 => 0.9 - Post Debridement (cm) - Width 0.1 => 2.5 - Total Square (Post) (cm) 0.01 => 2.25 - Area of Debridement (cm) - Length 0.1 => 0.9 - Area of Debridement (cm) - Width 0.1 => 2.5 - Total Square (Area) (cm) 0.01 => 2.25 - Bleeding Controlled with Pressure => Pressure,Silver => Nitrate #1 Left Superior Breast - Post Debridement (cm) - Length 0.1 => 1 - Post Debridement (cm) - Width 0.1 => 2.5 - Total Square (Post) (cm) 0.01 => 2.5 - Area of Debridement (cm) - Length 0.1 => 1 - Area of Debridement (cm) - Width 0.1 => 2.5 - Total Square (Area) (cm) 0.01 => 2.5 - Bleeding Controlled with Pressure => Pressure,Silver => Nitrate 12/05/23 09:46 Wound Center Nurse 2 #2 Inferior Left Breast -Time 09:47 -Correct Patient Yes -Correct Side, Site, Position Yes -Correct Procedure Yes -Procedure Performed Yes -Type of Procedure Debridement -Clinical Debridement Subcutaneous -Tissue Removed Subcutaneous -Post Debridement (cm) - Length 0.9 -Post Debridement (cm) - Width 2.5 -Post Debridement (cm) - Depth 0.1 -Total Square (Post) (cm) 2.25 -Area of Debridement (cm) - Length 0.9 -Area of Debridement (cm) - Width 2.5 -Total Square (Area) (cm) 2.25 -Tunneling No -Undermining/Tunneling No -Circular Undermining No -Wound/Ulcer Outcome Not Healed -Ulcer Cleansing Rinsed/ Irrigated with Saline -Foul Odor after Cleansing No -Bioengineered Tissue No -Bleeding Controlled with Pressure,Silver Nitrate -Treatment Response Procedure Tolerated Well -Debridement - Subq, 1st 20sq cm No #1 Left Superior Breast -Time 09:49 -Correct Patient Yes -Correct Side, Site, Position Yes -Correct Procedure Yes -Procedure Performed Yes -Type of Procedure Debridement -Clinical Debridement Subcutaneous -Tissue Removed Subcutaneous -Post Debridement (cm) - Length 1 -Post Debridement (cm) - Width 2.5 -Post Debridement (cm) - Depth 0.1 -Total Square (Post) (cm) 2.5 -Area of Debridement (cm) - Length 1 -Area of Debridement (cm) - Width 2.5 -Total Square (Area) (cm) 2.5 -Tunneling No -Undermining/Tunneling No -Circular Undermining No -Wound/Ulcer Outcome Not Healed -Ulcer Cleansing Rinsed/ Irrigated with Saline -Foul Odor after Cleansing No -Bioengineered Tissue No -Bleeding Controlled with Pressure,Silver Nitrate -Treatment Response Procedure Tolerated Well -Debridement - Subq, 1st 20sq cm Yes Pain Scale: 0-10 Numeric Is Patient Pain Free? Yes - Nurse 3 - General Ulcer D/C NN Start: 12/05/23 09:24 Freq: Status: Active Protocol: Activity Type Activity Date Activity User E-sign Co-sign Detail Recorded Client Recorded Date Recorded By Document 12/05/23 10:03 GA [id number] 12/05/23 10:06 GA 12/05/23 10:03 Wound Care Center Nurse 3 #2 Inferior Left Breast -Primary Dressing Applied Fibracol Plus 4x4,Mepilex Border -Fibracol Plus 4x4 2 -Mepilex Border 2 Pain Scale: 0-10 Numeric Is Patient Pain Free? Yes Assessment/Plan Assessment/Plan (1) Abscess of breast: CODE(S): N61.1 - Abscess of the breast and nipple PLAN: Discharge from the wound center follow-up as needed (2) Nonhealing nonsurgical wound: CODE(S): T14.8XXA - Other injury of unspecified body region, initial encounter
--- NOTE | 2023-12-20 10:20 | WC ---
PHOTO 12/19/23 LEFT SUPERIOR BREAST
== END 2023-12-19 16:32 | disposition home or self-care (01) ==
LOC: WC 09:45
PROVIDERS: PCP Nurse Practitioner Family; Referring Provider Nurse Practitioner Family; Visit Provider Nurse Practitioner
DX: N61.1 Abscess of the breast and nipple (principal); F31.9 Bipolar disorder, unspecified; E11.43 Type 2 diabetes mellitus with diabetic autonomic (poly)neuropathy; Z79.899 Other long term (current) drug therapy
CPT/HCPCS: 11042; 87070; 87075; 87077; 87186; 87205; 99213; G0463

== ENCOUNTER → 2024-02-05 | Outpatient (CLI) | payer MEDICAID, SELFPAY ==
[2024-02-05 12:41] LABS: Color, Urine Yellow (Yellow); Glucose, Dipstick Normal (Normal); Ketone-Dipstick Negative (Negative); Leukocyte Esterase-Dipstick 25 /ul (Negative); Nitrite-Dipstick Negative (Negative); Occult Blood-Urine 250 /ul (Negative); Protein-Dipstick 30 mg/dl (Negative); Specific Gravity, Urine 1.015 (1.002-1.030); Urine Bilirubin Dipstick Negative (Negative); Urine Clarity Cloudy (Clear); Urine Urobilinogen Normal (Normal)
== END | disposition home or self-care (01) ==
LOC: VSLAB 11:13
PROVIDERS: PCP Nurse Practitioner Family
DX: R30.0 Dysuria (principal)
CPT/HCPCS: 81002; 87086; 87088

== ENCOUNTER → 2024-04-22 | Outpatient (CLI) | payer MEDICAID, SELFPAY ==
[2024-04-22 12:47] LABS: Absolute Lymphocyte Count 1.96 X10^3/uL (0.83-4.51); Absolute Neutrophil Count 4.8 X10^3/uL (2.0-7.7); Basophil# 0.04 X10^3/uL; Basophil% 0.5 % (0-1); Eosinophil# 0.05 X10^3/uL; Eosinophils% 0.7 % (0-5); Hematocrit 37.9 % (37-47); Hemoglobin 12.1 g/dL (12.0-15.0); Lymphocyte # 1.96 X10^3/ul (0.83-4.51); Mean Corp Hgb Conc 31.9 g/dL (32-36); Mean Corpuscular Hgb 26.9 pg (27.0-32.0); Mean Corpuscular Volume 84.2 fL (81-99); Mean Platelet Vol. 9.6 fl (6.2-12.0); Monocyte# 0.64 X10^3/uL; Monocyte% 8.5 % (0-10); NRBC Flagged by Analyzer 0 % (0-5); Neutrophil # 4.84 X10^3/uL (2.7-7.7); Neutrophil % 64.2 % (47-70); Platelet Count 352 K/mm3 (150-450); RBC Distribution Width CV 13.7 % (11.6-14.6); RBC Distribution Width SD 41.9 fl (35.1-43.9); White Blood Count 7.5 K/mm3 (4.4-11.0)
[2024-04-22 14:24] LABS: ALB/GLOB Ratio 1.1 RATIO (0.9-2.4); AST(SGOT) 17 U/L (<=31); Alanine Aminotransfer ALT/SGPT 19 U/L (<=34); Albumin, Serum 3.7 g/dL (3.5-5.0); Alkaline Phosphatase 62 U/L (35-104); Anion Gap 15 (5-15); BUN 10 mg/dL (4-19); BUN/Creat Ratio 17.7 RATIO (10-20); Calcium,Total 9.3 mg/dL (7.6-11.0); Carbon Dioxide 20.4 mmol/L (21.0-32.0); Chloride 104 mmol/L (98-108); Creatinine, Serum 0.58 mg/dL (0.70-1.20); EST Glomerular Filtration Rate 127 (>60); Globulin 3.3 g/dL (2.2-4.2); Glucose 109 mg/dL (70-99); Potassium 4.3 mmol/L (3.3-5.1); Sodium Level 139 mmol/L (133-145); Total Bilirubin 0.33 mg/dL (0.00-1.30)
== END | disposition home or self-care (01) ==
LOC: VSLAB 09:32
PROVIDERS: PCP Nurse Practitioner Family
DX: R19.7 Diarrhea, unspecified (principal)
CPT/HCPCS: 36415; 80053; 85025

== ENCOUNTER → 2024-05-07 | Outpatient (CLI) | payer MEDICAID, SELFPAY ==
[2024-05-07 13:05] LABS: Hemoglobin A1c 5.9 % (<=5.6)
[2024-05-07 13:09] LABS: Absolute Lymphocyte Count 1.95 X10^3/uL (0.83-4.51); Absolute Neutrophil Count 4.9 X10^3/uL (2.0-7.7); Basophil# 0.04 X10^3/uL; Basophil% 0.5 % (0-1); Eosinophil# 0.03 X10^3/uL; Eosinophils% 0.4 % (0-5); Hematocrit 40.1 % (37-47); Hemoglobin 12.7 g/dL (12.0-15.0); Lymphocyte # 1.95 X10^3/ul (0.83-4.51); Lymphocyte % 25.4 % (19-41); Mean Corp Hgb Conc 31.7 g/dL (32-36); Mean Corpuscular Hgb 26.9 pg (27.0-32.0); Mean Platelet Vol. 9.4 fl (6.2-12.0); Monocyte% 9.1 % (0-10); NRBC Flagged by Analyzer 0 % (0-5); Neutrophil # 4.93 X10^3/uL (2.7-7.7); Neutrophil % 64.3 % (47-70); Platelet Count 380 K/mm3 (150-450); RBC Distribution Width SD 43.4 fl (35.1-43.9); Red Blood Count 4.72 M/mm3 (4.2-5.4); White Blood Count 7.7 K/mm3 (4.4-11.0)
== END | disposition home or self-care (01) ==
LOC: VSLAB 08:54
PROVIDERS: PCP Nurse Practitioner Family
DX: E11.9 Type 2 diabetes mellitus without complications (principal); L03.90 Cellulitis, unspecified
CPT/HCPCS: 36415; 83036; 85025

== ENCOUNTER 2024-05-08 14:36 | Emergency (ER) | payer MEDICAID, SELFPAY ==
[2024-05-08 14:36] VITALS: BP 126/66; PULSE 71; RESP 16; TEMP 36.3; O2SAT 100; BMI 46.1
--- NOTE | 2024-05-08 15:20 | EX.ED.DYSGE1 ---
HPI History of Present Illness Chief Complaint: Nausea/Vomiting Narrative Narrative: Patient is a 28-year-old female with a past medical history of gastroparesis, depression, diabetes, GERD, BMI of 46.2, bipolar, anxiety, PCOS, IBS who presented to the emergency department chief complaint abdominal pain nausea vomiting. Patient states that for the last week she has had abdominal pain nausea vomiting and states that today that her blood pressure at home was noted to be low therefore she came here for the valuation management. When questioned why she is checking her blood pressure states that the doctor has her checking her blood pressure daily and keeping a log of this so they can evaluate her blood pressure further. Patient denies recent sick contacts. [facility] Medical History Alcohol use Picking own skin Low iron Fatty liver Gastroparesis Cardiology follow-up encounter Palpitations Obesity Depression Diabetes GERD (gastroesophageal reflux disease) Irregular heart beat Cellulitis History of echocardiogram Wears glasses Bipolar disorder Anxiety Arthritis Back pain Migraine headache Syncope Non-smoker Bipolar 1 disorder PCOS (polycystic ovarian syndrome) IBS (irritable bowel syndrome) Migraines Autism Home Medications ?Medication ?Instructions ?Recorded ?Last Taken ?Type lithium carbonate 300 mg capsule 300 mg PO DAILY Bipolar 04/05/17 10/22/23 History ferrous sulfate 325 mg (65 mg 325 mg PO QODAY supplement 01/24/22 10/21/23 History iron) tablet (FeroSul) lithium carbonate 600 mg capsule 600 mg PO QHS mental health 01/24/22 10/22/23 History fremanezumab-vfrm 225 mg/1.5 mL 225 mg subcut QMONTH migraine 10/03/22 11/21/22 History subcutaneous auto-injector (Ajovy) aripiprazole lauroxil 441 mg/1.6 441 mg IM .COMPLEX mental health 12/18/22 10/23/23 History mL suspension, ext.rel. IM syringe (Aristada) cholecalciferol (vitamin D3) 25 25 mcg PO DAILY vitamin 12/18/22 10/22/23 History mcg (1,000 unit) tablet (Vitamin D3) imipramine HCl 25 mg tablet 25 mg PO DAILY mental health 12/18/22 10/22/23 History mecobalamin (vitamin B12) 1,000 1,000 mcg PO DAILY 03/20/23 10/22/23 History mcg lozenges pantoprazole 40 mg tablet,delayed 40 mg PO DAILY 06/03/23 10/22/23 History release simvastatin 20 mg tablet 20 mg PO QHS 06/03/23 10/22/23 History lactulose 10 gram/15 mL oral 30 g (45 mL) PO BID PRN 09/28/23 10/21/23 Rx solution constipation #473 mL hyoscyamine sulfate 0.125 mg tablet 0.125 mg PO BID-QID PRN dyspepsia 10/10/23 10/21/23 Rx #30 tabs medroxyprogesterone 10 mg tablet 10 mg PO .COMPLEX #30 tabs 10/17/23 10/22/23 Rx polyethylene glycol 3350 17 4 g PO ONCE PRN constipation 10/17/23 10/24/23 History gram/dose oral powder (Miralax) sucralfate 1 gram tablet 1 g PO TID PRN constipation 10/19/23 10/21/23 History diphenoxylate-atropine 2.5 1 tab PO BID PRN diarrhea #30 tabs 10/29/23 Unknown Rx mg-0.025 mg tablet (Lomotil) metoclopramide HCl 10 mg tablet 5 mg (1/2 x 10 mg) PO BID nausea 04/22/24 Unknown Rx (Reglan) and vomiting #28 tabs metoprolol tartrate 50 mg tablet 50 mg PO BID #180 tabs 04/23/24 Unknown Rx amlodipine 10 mg tablet 5 mg (1/2 x 10 mg) PO QDAY #90 tabs 05/05/24 Unknown Rx dicyclomine 20 mg tablet 20 mg PO TID PRN abdominal pain 05/08/24 Unknown Rx #30 tabs metoclopramide HCl 10 mg tablet 10 mg PO Q6H PRN nausea and 05/08/24 Unknown Rx (Reglan) vomiting #20 tabs Allergy/AdvReac Type Severity Reaction Status Date / Time metformin Allergy Mild Nausea/Vom/ Verified 05/08/24 14:40 Diarrhea pollen extracts Allergy Hives Verified 05/08/24 14:40 escitalopram (From Lexapro) AdvReac Other Verified 05/08/24 14:40 lactase (From Dairy Aid) AdvReac Upset Verified 05/08/24 14:40 Stomach ondansetron (From Zofran (as AdvReac Anaphylaxis Verified 05/08/24 14:40 hydrochloride)) Family History Mother Uterine cancer Other Asthma Depression Diabetes GERD (gastroesophageal reflux disease) Heart disease Hyperlipidemia Hypertension Surgical History History of colonoscopy History of esophagogastroduodenoscopy (EGD) History of tonsillectomy and adenoidectomy H/O knee surgery H/O spinal fusion Social History household members: none housing: apartment current occupational status: unemployed history of recent travel: No Smoking Status: Never smoker alcohol intake: current alcohol intake frequency: holidays/special occasions only substance use type: does not use caffeine: Yes Type: carbonated beverages what type of physical activity do you participate in: walking frequency: daily seatbelt use: always do you feel safe at home: Yes additional social history: single ROS ROS ED ROS Narrative Constitutional: Denies fevers, chills, headaches, lightness, dizziness Eyes: Denies change in vision double vision blurry vision Abdomen: Complains of abdominal pain nausea vomit diarrhea as noted above : Denies urinary symptoms Neurological: Denies numbness, weakness, tingling Musculoskeletal: Denies back pain Skin: Denies rashes or lesions EXAM Physical Exam Narrative Exam Narrative: General: Patient lying in bed rest comfortably did not appear to be in acute distress Head: Atraumatic, normocephalic Eyes: PERRL bilaterally, EOMI bilateral, no conjunctival injection noted Neck: Soft, supple, trachea midline Cardiovascular: Regular rate rhythm no murmurs gallops rubs noted Respiratory: Clear to auscultation bilaterally no rales rhonchi or wheezes noted Abdomen: Soft, nondistended, diffuse tenderness to palpation no rebound or guarding on exam Extremities: +5/5 strength noted in the bilateral upper and lower extremities Neurological: Patient follow commands that she was at [facility] years 2024 Skin: Warm, dry, intact no rashes or lesions noted Const Vital Signs: 05/08/24 14:36 05/08/24 16:58 Temperature 97.4 F L Temperature Source Temporal Pulse Rate 71 Pulse Rate [Lying] 72 Pulse Rate [Standing (for 1 minute prior to obtaining)] 76 Respiratory Rate 16 Blood Pressure 126/66 H Blood Pressure [Lying] 133/67 H Blood Pressure [Sitting (for 1 minute prior to obtaining)] 146/87 H Blood Pressure [Standing (for 1 minute prior to obtaining)] 139/83 H Blood Pressure Mean 86 Blood Pressure Mean [Lying] 89 Blood Pressure Mean [Sitting (for 1 minute prior to obtaining)] 106 Blood Pressure Mean [Standing (for 1 minute prior to obtaining)] 101 Pulse Ox 100 Oxygen Delivery Method Room Air MDM MDM MDM Narrative Medical decision making narrative: Patient is a 28-year-old female who presented to the emerged part with chief complaint abdominal pain nausea vomit diarrhea. On the differential diagnose includes Melamin to DKA, hyperglycemia, gastroparesis, cholecystitis, appendicitis. Once workup is obtained reviewed she will be reevaluated. Patient given IV fluids, Reglan and Bentyl. Patient CBC reviewed showed no evidence leukocytosis white blood count normal at 7.8, hemoglobin 12.5, plate count was noted to be 356. Patient sodium normal 139, potassium normal at 4, creatinine normal at 0.48. Patient's anion gap normal at 8. Patient's AST and ALT are 1426 respectively. Patient's lipase normal at 32 test negative. Patient urinalysis reviewed showed no evidence of infection. She is not having urinary symptoms. Patient CT abdomen pelvis with IV contrast was reviewed showed no acute abdominal pelvic finding moderate hepatomegaly. Patient ambulated in the emergency department several times to the bathroom difficulty. Discussed results with the patient she would like to go home at this point time. She will given a prescription for Reglan she advised to do a brat diet and advance as tolerated. She is encouraged return with worsening symptoms or concerns otherwise she is to follow-up with her primary care physician outpatient setting. She is agreeable this plan as well as her family at bedside all question concerns answered she was discharged home in stable condition. Lab Data Labs: Laboratory Results - last 24 hr 05/08/24 15:35 WBC 7.8 RBC 4.48 Hgb 12.5 Hct 37.3 MCV 83.3 MCH 27.9 MCHC 33.5 D RDW Std Deviation 43.0 RDW Coeff of Delmy 14.1 Plt Count 356 MPV 9.0 Immature Gran % (Auto) 0.300 Neut % (Auto) 58.1 Lymph % (Auto) 30.5 [place] % (Auto) 10.3 H Eos % (Auto) 0.5 Baso % (Auto) 0.3 Absolute Neuts (auto) 4.5 Absolute Lymphs (auto) 2.37 Nucleated RBC % 0 Sodium 139 Potassium 4.0 Chloride 107 Carbon Dioxide 23.9 Anion Gap 8 BUN 13 Creatinine 0.48 L Estim Creat Clear Calc 243.10 Est GFR (MDRD) Non-Af 133 BUN/Creatinine Ratio 26.4 H Glucose 107 H Calcium 9.2 Total Bilirubin 0.21 AST 14 ALT 26 Alkaline Phosphatase 60 Total Protein 6.6 Albumin 3.9 Globulin 2.7 Albumin/Globulin Ratio 1.4 Lipase 32 Serum , Qual NEGATIVE Urine Color Yellow Urine Clarity Clear Urine pH 7.0 Ur Specific [place] 1.005 Urine Protein 15 H Urine Glucose (UA) Normal Urine Ketones Negative Urine Occult Blood 10 H Urine Nitrite Negative Urine Bilirubin Negative Urine Urobilinogen Normal Ur Leukocyte Esterase 25 H Urine RBC 0-5 SEEN Urine WBC 5-10 SEEN Ur Squamous Epith Cells 0-5 SEEN Ur Transition Epith Cell 0-5 SEEN Urine Bacteria 1+ Urine Mucus 0 SEEN Radiography Diagnostic Testing: Clinical Impression(s) from Imaging Studies Abdomen/Pelvis CT 05/08/24 16:20 IMPRESSION: 1. No acute abdominopelvic finding. 2. Moderate hepatomegaly. Reading Location: [facility] Discharge Plan Triage Chief Complaint: Nausea/Vomiting ED Provider: Stan Lin Dx/Rx/DC Orders Clinical Impression: Nausea & vomiting Prescriptions: New metoclopramide HCl [Reglan] 10 mg tablet 10 mg PO Q6H PRN (Reason: nausea and vomiting) Qty: 20 0RF dicyclomine 20 mg tablet 20 mg PO TID PRN (Reason: abdominal pain) Qty: 30 0RF No Action Ajovy Autoinjector 225 mg/1.5 mL auto-injector 225 mg subcut QMONTH Patient Comments: PT STATES USES BETWEEN FIRST AND FIFTH OF EACH MONTH; hasn't started yet medroxyprogesterone 10 mg tablet 10 mg PO .COMPLEX Qty: 30 4RF Rx Instructions: 10 mg orally first 10 days each month; T mecobalamin (vitamin B12) 1,000 mcg lozenge 1,000 mcg PO DAILY Rx Instructions: allow to dissolve in mouth OR may chew lightly before swallowing hyoscyamine sulfate 0.125 mg tablet 0.125 mg PO BID-QID PRN (Reason: dyspepsia) Qty: 30 0RF lithium carbonate 300 MG capsule 300 mg PO DAILY lithium carbonate 600 mg Capsule 600 mg PO QHS ferrous sulfate [FeroSul] 325 mg (65 mg iron) tablet 325 mg PO QODAY imipramine HCl 25 mg tablet 25 mg PO DAILY cholecalciferol (vitamin D3) [Vitamin D3] 25 mcg (1,000 unit) tablet 25 mcg PO DAILY Aristada 441 mg/1.6 mL suspension,extended rel syring 441 mg IM .COMPLEX Rx Instructions: 441 mg intramuscularly Q28D; polyethylene glycol 3350 [Miralax] 17 gram/dose powder 4 g PO ONCE PRN (Reason: constipation) sucralfate 1 gram tablet 1 g PO TID PRN (Reason: constipation) Rx Instructions: 1 g orally Take on an empty stomach. Hour before meals-lunch and dinner; do not take within 2 hours before or after lithium simvastatin 20 mg tablet 20 mg PO QHS pantoprazole 40 mg tablet,delayed release (DR/EC) 40 mg PO DAILY lactulose 10 gram/15 mL solution 30 g PO BID PRN (Reason: constipation) Qty: 473 1RF diphenoxylate-atropine [Lomotil] 2.5-0.025 mg tablet 1 tab PO BID PRN (Reason: diarrhea) Qty: 30 2RF metoclopramide HCl [Reglan] 10 mg tablet 5 mg PO BID Qty: 28 11RF metoprolol tartrate 50 mg tablet 50 mg PO BID Qty: 180 3RF amlodipine 10 mg tablet 5 mg PO QDAY Qty: 90 3RF Primary Care Provider: Naina Da Silva Referrals: Naina Da Silva, [employer] [Primary Care Provider] - Activity Restrictions/Additional Instructions: Follow-up your doctor in outpatient setting. Return with worsening symptoms or concerns. Your CT today did not show anything surgical. Use the prescriptions are sent to your pharmacy as prescribed. Print Language: Cymraes Disposition Disposition: Home, Self Care
[2024-05-08] MEDS: 0.9% Normal Saline (1000mL) 1,000 ML 999 ML IV (15:40)
[2024-05-08] MEDS: Metoclopramide 10 MG/2 ML Vial IV (15:40)
[2024-05-08] MEDS: Dicyclomine 10 MG Capsule 20 MG PO (15:40)
[2024-05-08 15:43] LABS: Mucous, Urine 0 SEEN /hpf (<or=2+)
[2024-05-08 15:46] LABS: Absolute Lymphocyte Count 2.37 X10^3/uL (0.83-4.51); Absolute Neutrophil Count 4.5 X10^3/uL (2.0-7.7); Basophil# 0.02 X10^3/uL; Basophil% 0.3 % (0-1); Eosinophil# 0.04 X10^3/uL; Eosinophils% 0.5 % (0-5); Hematocrit 37.3 % (37-47); Hemoglobin 12.5 g/dL (12.0-15.0); Lymphocyte # 2.37 X10^3/ul (0.83-4.51); Lymphocyte % 30.5 % (19-41); Mean Corp Hgb Conc 33.5 g/dL (32-36); Mean Corpuscular Hgb 27.9 pg (27.0-32.0); Mean Corpuscular Volume 83.3 fL (81-99); Monocyte% 10.3 % (0-10); NRBC Flagged by Analyzer 0 % (0-5); Neutrophil # 4.53 X10^3/uL (2.7-7.7); Neutrophil % 58.1 % (47-70); Platelet Count 356 K/mm3 (150-450); RBC Distribution Width CV 14.1 % (11.6-14.6); Red Blood Count 4.48 M/mm3 (4.2-5.4); White Blood Count 7.8 K/mm3 (4.4-11.0)
[2024-05-08 16:02] LABS: Color, Urine Yellow (Yellow); Glucose, Dipstick Normal (Normal); Ketone-Dipstick Negative (Negative); Leukocyte Esterase-Dipstick 25 /ul (Negative); Nitrite-Dipstick Negative (Negative); Occult Blood-Urine 10 /ul (Negative); Protein-Dipstick 15 mg/dl (Negative); Specific Gravity, Urine 1.005 (1.002-1.030); Urine Bilirubin Dipstick Negative (Negative); Urine Clarity Clear (Clear); Urine Urobilinogen Normal (Normal)
[2024-05-08 16:09] LABS: Internal QC Validated? YES +Cl - CLEAR BKGD; Pregnancy, Serum, hCG Quali. NEGATIVE Negative
[2024-05-08 16:11] LABS: ALB/GLOB Ratio 1.4 RATIO (0.9-2.4); AST(SGOT) 14 U/L (<=31); Alanine Aminotransfer ALT/SGPT 26 U/L (<=34); Albumin, Serum 3.9 g/dL (3.5-5.0); Alkaline Phosphatase 60 U/L (35-104); Anion Gap 8 (5-15); BUN 13 mg/dL (4-19); BUN/Creat Ratio 26.4 RATIO (10-20); Calcium,Total 9.2 mg/dL (7.6-11.0); Carbon Dioxide 23.9 mmol/L (21.0-32.0); Chloride 107 mmol/L (98-108); Creatinine, Serum 0.48 mg/dL (0.70-1.20); EST Glomerular Filtration Rate 133 (>60); Globulin 2.7 g/dL (2.2-4.2); Glucose 107 mg/dL (70-99); Lipase 32 U/L (13-75); Protein, Total 6.6 g/dL (5.9-8.4); Sodium Level 139 mmol/L (133-145); Total Bilirubin 0.21 mg/dL (0.00-1.30)
--- NOTE | 2024-05-08 16:20 | CT_ITS ---
PROCEDURE: ABDOMEN/PELVIS W IV CONT ONLY 05/08/2024 REASON FOR EXAM: 28-year-old female, abdominal pain, nausea and vomiting x2 days, hypotension per patient, acid reflux, PCOS, IBS, autism, bipolar, diabetes, spinal fusion. TECHNIQUE: Abdomen CT without and with intravenous contrast. Coronal and Sagittal reconstruction series were provided. PATIENT PREPARATION: Per protocol CONTRAST: Isovue-300 VOLUME: 100ML One or more dose reduction techniques were used (e.g., Automated exposure control, adjustment of the mA and/or kV according to patient size, use of iterative reconstruction technique. RADIATION DOSE SUMMARY: CTDlvol: 46 mGy DLP: 1812 mGycm COMPARISON: CT abdomen pelvis 09/24/2023. FINDINGS: Lung bases: The heart is normal in size. Low lung volumes bilaterally. Liver: Moderate hepatomegaly without focal hepatic mass. The major portal veins are patent. No biliary ductal dilation. Gallbladder: No radiopaque stones within the gallbladder. Spleen: Pancreas: Unremarkable. Adrenals: Unremarkable. Kidneys: No hydronephrosis or nephrolithiasis. Bladder: Distended and unremarkable. Reproductive Organs: Normal uterine size and contour. Ovaries are unremarkable. Bowel: The bowel loops are normal in caliber. No ascites or pneumoperitoneum. Normal appendix. Stable cystic hypodensity within the right retroperitoneum at the hepatic flexure. Lymph nodes: No suspicious lymph node enlargement. Vasculature: The abdominal aorta and IVC are normal. Bones: Partially visualized extensive thoracolumbar stabilization rods, with stable configuration of the scoliotic spine curvature. No aggressive osseous lesions. CT/Abdomen/Pelvis W IV Cont ONLY IMPRESSION: 1. No acute abdominopelvic finding. 2. Moderate hepatomegaly. Reading Location: [id number]
[2024-05-08 16:26] LABS: Bacteria 1+ /hpf (None Seen); Squamous Epithelial Cells - UA 0-5 SEEN /hpf (5-10)
[2024-05-08 16:27] LABS: Red Blood Cells-Urine 0-5 SEEN /hpf (0-5); Transitional Epithelial - Ur 0-5 SEEN /hpf (0-5)
[2024-05-08 16:28] LABS: White Blood Cells 5-10 SEEN /hpf (0-5)
[2024-05-08 16:58] VITALS: BP 133/67; BP 139/83; BP 146/87; PULSE 72; PULSE 76
[2024-05-08 17:24] VITALS: BP 128/96; PULSE 79; RESP 14; TEMP 36.2; O2SAT 99
== END 2024-05-08 17:25 | disposition home or self-care (01) ==
PROVIDERS: Emergency Provider Emergency Medicine; PCP Nurse Practitioner Family; Referring Provider Emergency Medicine; Visit Provider Emergency Medicine
DX: R11.2 Nausea with vomiting, unspecified (principal); F31.9 Bipolar disorder, unspecified; E11.9 Type 2 diabetes mellitus without complications; Z79.899 Other long term (current) drug therapy; K21.9 Gastro-esophageal reflux disease without esophagitis
CPT/HCPCS: 74177; 80053; 81001; 83690; 84703; 85025; 99284; Q9967; A4216

== ENCOUNTER 2024-05-14 20:46 | Emergency (ER) | payer MEDICAID, SELFPAY ==
[2024-05-14 20:47] VITALS: BP 154/101; PULSE 94; RESP 18; TEMP 36.8; O2SAT 100; BMI 47.1
--- NOTE | 2024-05-14 20:55 | EKG12_ITS ---
Test Reason : CP Blood Pressure : */* mmHG Vent. Rate : 84 BPM Atrial Rate : 84 BPM P-R Int : 148 ms QRS Dur : 82 ms QT Int : 392 ms P-R-T Axes : 20 0 -4 degrees QTcB Int : 463 ms Normal sinus rhythm Minimal voltage criteria for LVH, may be normal variant ( R in aVL ) Borderline ECG When compared with ECG of 23-Sep-2023 22:50, No significant change was found Confirmed by RELL VARGAS, FOZIA ([id number]), supervising film or videotape editor SATYA FRANKLIN ([id number]) on 05/15/2024 12:53:58 PM Referred By: TB Confirmed By: FOZIA ZACARIAS MD
--- NOTE | 2024-05-14 21:00 | RAD_ITS ---
PROCEDURE: CHEST 1 VIEW (PORTABLE) 05/14/2024 REASON FOR EXAM: 28-year-old female, chest pain. TECHNIQUE: Frontal view of the chest. COMPARISON: CT abdomen pelvis 04/2024, chest radiograph 06/03/2023. FINDINGS: Hardware: Partially visualized extensive thoracolumbar stabilization rods. Heart: The heart size is normal. Lungs: No focal consolidation, pleural effusion or pneumothorax. Bones: The bones are unremarkable. RAD/Chest 1 View (Portable) IMPRESSION: No Acute Findings. Reading Location: [id number]
[2024-05-14 21:14] LABS: Absolute Lymphocyte Count 2.55 X10^3/uL (0.83-4.51); Absolute Neutrophil Count 4.8 X10^3/uL (2.0-7.7); Basophil# 0.03 X10^3/uL; Basophil% 0.4 % (0-1); Eosinophil# 0.03 X10^3/uL; Eosinophils% 0.4 % (0-5); Hematocrit 39.4 % (37-47); Hemoglobin 12.7 g/dL (12.0-15.0); Lymphocyte # 2.55 X10^3/ul (0.83-4.51); Lymphocyte % 31.2 % (19-41); Mean Corp Hgb Conc 32.2 g/dL (32-36); Mean Corpuscular Hgb 26.9 pg (27.0-32.0); Mean Corpuscular Volume 83.5 fL (81-99); Monocyte# 0.74 X10^3/uL; NRBC Flagged by Analyzer 0 % (0-5); Neutrophil # 4.82 X10^3/uL (2.7-7.7); Neutrophil % 58.9 % (47-70); Platelet Count 374 K/mm3 (150-450); RBC Distribution Width CV 14.5 % (11.6-14.6); RBC Distribution Width SD 43.8 fl (35.1-43.9); Red Blood Count 4.72 M/mm3 (4.2-5.4); White Blood Count 8.2 K/mm3 (4.4-11.0)
[2024-05-14 22:07] LABS: Troponin T High Sensitivity < 6 ng/L (<=14)
[2024-05-14 22:27] LABS: Anion Gap 11 (5-15); BUN 15 mg/dL (4-19); Calcium,Total 9.5 mg/dL (7.6-11.0); Carbon Dioxide 20.5 mmol/L (21.0-32.0); Chloride 105 mmol/L (98-108); Creatinine, Serum 0.73 mg/dL (0.70-1.20); EST Glomerular Filtration Rate 116 (>60); Glucose 124 mg/dL (70-99); Potassium 4.1 mmol/L (3.3-5.1); Sodium Level 136 mmol/L (133-145)
[2024-05-14 22:38] VITALS: BP 136/75; PULSE 84; O2SAT 98
[2024-05-14] MEDS: 0.9% Normal Saline (1000mL) 1,000 ML 999 ML IV (23:09)
[2024-05-14] MEDS: Metoclopramide 10 MG/2 ML Vial IV (23:09)
[2024-05-14 23:52] LABS: Troponin T High Sens 2 HR < 6 ng/L (<=14)
--- NOTE | 2024-05-15 00:09 | EX.ED.DYSGE1 ---
HPI History of Present Illness Chief Complaint: Chest Pain Narrative Narrative: Patient is a 28-year-old female with past medical history of GERD, depression, diabetes, bipolar disorder, PCOS, autism who presents to the emergency department with a chief complaint of chest pain and nausea vomiting. Patient states that she was cooking and developed chest pain is been going on for approximate hour and 1/2 to 2 hours. She states that she felt lightheaded as well and had to sit on the floor. States that her symptoms were not improving therefore she came here for evaluation management. Patient denies any sick contacts [facility] Medical History Alcohol use Picking own skin Low iron Fatty liver Gastroparesis Cardiology follow-up encounter Palpitations Obesity Depression Diabetes GERD (gastroesophageal reflux disease) Irregular heart beat Cellulitis History of echocardiogram Wears glasses Bipolar disorder Anxiety Arthritis Back pain Migraine headache Syncope Non-smoker Bipolar 1 disorder PCOS (polycystic ovarian syndrome) IBS (irritable bowel syndrome) Migraines Autism Home Medications ?Medication ?Instructions ?Recorded ?Last Taken ?Type lithium carbonate 300 mg capsule 300 mg PO DAILY Bipolar 04/05/17 10/22/23 History ferrous sulfate 325 mg (65 mg 325 mg PO QODAY supplement 01/24/22 10/21/23 History iron) tablet (FeroSul) lithium carbonate 600 mg capsule 600 mg PO QHS mental health 01/24/22 10/22/23 History fremanezumab-vfrm 225 mg/1.5 mL 225 mg subcut QMONTH migraine 10/03/22 11/21/22 History subcutaneous auto-injector (Ajovy) aripiprazole lauroxil 441 mg/1.6 441 mg IM .COMPLEX mental health 12/18/22 10/23/23 History mL suspension, ext.rel. IM syringe (Aristada) cholecalciferol (vitamin D3) 25 25 mcg PO DAILY vitamin 12/18/22 10/22/23 History mcg (1,000 unit) tablet (Vitamin D3) imipramine HCl 25 mg tablet 25 mg PO DAILY mental health 12/18/22 10/22/23 History mecobalamin (vitamin B12) 1,000 1,000 mcg PO DAILY 03/20/23 10/22/23 History mcg lozenges pantoprazole 40 mg tablet,delayed 40 mg PO DAILY 06/03/23 10/22/23 History release simvastatin 20 mg tablet 20 mg PO QHS 06/03/23 10/22/23 History lactulose 10 gram/15 mL oral 30 g (45 mL) PO BID PRN 09/28/23 10/21/23 Rx solution constipation #473 mL hyoscyamine sulfate 0.125 mg tablet 0.125 mg PO BID-QID PRN dyspepsia 10/10/23 10/21/23 Rx #30 tabs medroxyprogesterone 10 mg tablet 10 mg PO .COMPLEX #30 tabs 10/17/23 10/22/23 Rx polyethylene glycol 3350 17 4 g PO ONCE PRN constipation 10/17/23 10/24/23 History gram/dose oral powder (Miralax) sucralfate 1 gram tablet 1 g PO TID PRN constipation 10/19/23 10/21/23 History diphenoxylate-atropine 2.5 1 tab PO BID PRN diarrhea #30 tabs 10/29/23 Unknown Rx mg-0.025 mg tablet (Lomotil) metoclopramide HCl 10 mg tablet 5 mg (1/2 x 10 mg) PO BID nausea 04/22/24 Unknown Rx (Reglan) and vomiting #28 tabs metoprolol tartrate 50 mg tablet 50 mg PO BID #180 tabs 04/23/24 Unknown Rx amlodipine 10 mg tablet 5 mg (1/2 x 10 mg) PO QDAY #90 tabs 05/05/24 Unknown Rx dicyclomine 20 mg tablet 20 mg PO TID PRN abdominal pain 05/08/24 Unknown Rx #30 tabs metoclopramide HCl 10 mg tablet 10 mg PO Q6H PRN nausea and 05/08/24 Unknown Rx (Reglan) vomiting #20 tabs Allergy/AdvReac Type Severity Reaction Status Date / Time metformin Allergy Mild Nausea/Vom/ Verified 05/14/24 20:50 Diarrhea pollen extracts Allergy Hives Verified 05/14/24 20:50 escitalopram (From Lexapro) AdvReac Other Verified 05/14/24 20:50 lactase (From Dairy Aid) AdvReac Upset Verified 05/14/24 20:50 Stomach ondansetron (From Zofran (as AdvReac Anaphylaxis Verified 05/14/24 20:50 hydrochloride)) Family History Mother Uterine cancer Other Asthma Depression Diabetes GERD (gastroesophageal reflux disease) Heart disease Hyperlipidemia Hypertension Surgical History History of colonoscopy History of esophagogastroduodenoscopy (EGD) History of tonsillectomy and adenoidectomy H/O knee surgery H/O spinal fusion Social History household members: none housing: apartment current occupational status: unemployed history of recent travel: No Smoking Status: Never smoker alcohol intake: current alcohol intake frequency: holidays/special occasions only substance use type: does not use caffeine: Yes Type: carbonated beverages what type of physical activity do you participate in: walking frequency: daily seatbelt use: always do you feel safe at home: Yes additional social history: single ROS ROS ED ROS Narrative Constitutional: Denies fevers, chills, headaches Eyes: Denies double vision blurry vision Cardiovascular: Complains of chest pain as noted above denies any radiation denies palpitations Respiratory: Denies coughing wheezing shortness of breath Abdomen: Complains of nausea vomiting denies abdominal pain : Denies urinary symptoms Neurological: Denies numbness, weakness, tingling Musculoskeletal: Denies back pain Skin: Denies rashes or lesions EXAM Physical Exam Narrative Exam Narrative: General: Patient is lying in bed rest comfortably did not appear to be in acute distress Head: Atraumatic, normocephalic Eyes: PERRL bilateral, EOMI bilateral, no conjunctival injection noted Neck: Soft, supple, trachea midline Cardiovascular: Regular rate and rhythm no murmurs gallops rubs noted Respiratory: Clear to auscultation bilaterally Abdomen: Soft, nondistended, no tenderness palpation Extremities: +5/5 strength noted in the bilateral upper and lower extremities, radial pulse +2/4 in the bilateral upper extremities, no pedal edema on exam Neurological: Patient following commands and that she was at [facility] year is 2024. NIH of 0 GCS 15 Skin: Warm, dry, intact no rashes or lesions noted Const Vital Signs: 05/14/24 20:47 05/14/24 22:34 05/14/24 22:38 Temperature 98.3 F Temperature Source Temporal Pulse Rate 94 84 Respiratory Rate 18 Blood Pressure 154/101 H 136/75 H Blood Pressure Mean 118 95 Pulse Ox 100 98 Oxygen Delivery Method Room Air Room Air Room Air MDM MDM MDM Narrative Medical decision making narrative: Patient is a 28-year-old female who presented to the emergency department with chief complaint chest pain nausea vomiting. On the differential diagnose includes but not limited to DKA, ACS, pneumonia, pneumothorax, GERD, anxiety. Once workup is obtained reviewed she will be reevaluated. Patient be given IV fluids and Reglan. Patient CBC reviewed and showed no evidence of leukocytosis white blood cell count normal 8.2, hemoglobin stable 12.7, plate count normal at 374. Patient sodium normal 136, potassium normal 4.1, creatinine was noted to be normal at 0.73. Patient anion gap normal at 11. Patient glucose 124. Patient's troponin was less than 6 with a delta troponin of less than 6 as well. Patient chest x-ray reviewed by myself and by radiology showed no acute cardiopulmonary processes. Patient on reevaluation is feeling much improved she would like to go home at this point in time. She states that she has Reglan at home she was advised to use this as needed for nausea or vomiting. She is encouraged to follow-up with her primary care physician outpatient setting return to worsening symptoms or concerns. Mother at bedside is also agreeable to plan all question concerns answered she is discharged home in stable condition. Lab Data Labs: Laboratory Results - last 24 hr 05/14/24 05/14/24 21:03 23:16 WBC 8.2 RBC 4.72 Hgb 12.7 Hct 39.4 MCV 83.5 MCH 26.9 L MCHC 32.2 RDW Std Deviation 43.8 RDW Coeff of Delmy 14.5 Plt Count 374 MPV 9.0 Immature Gran % (Auto) 0.100 Neut % (Auto) 58.9 Lymph % (Auto) 31.2 Bay % (Auto) 9.0 Eos % (Auto) 0.4 Baso % (Auto) 0.4 Absolute Neuts (auto) 4.8 Absolute Lymphs (auto) 2.55 Nucleated RBC % 0 Sodium 136 Potassium 4.1 Chloride 105 Carbon Dioxide 20.5 L Anion Gap 11 BUN 15 Creatinine 0.73 Estim Creat Clear Calc 161.90 Est GFR (MDRD) Non-Af 116 BUN/Creatinine Ratio 20.0 Glucose 124 H Calcium 9.5 Troponin T High Sens < 6 Troponin T Hi Sens 2 Hr < 6 Radiography Diagnostic Testing: Clinical Impression(s) from Imaging Studies Chest X-Ray 05/14/24 21:00 IMPRESSION: No Acute Findings. Reading Location: [facility] Discharge Plan Triage Chief Complaint: Chest Pain ED Provider: Stan Lin Dx/Rx/DC Orders Clinical Impression: Nausea & vomiting, Chest pain Prescriptions: No Action Ajovy Autoinjector 225 mg/1.5 mL auto-injector 225 mg subcut QMONTH Patient Comments: PT STATES USES BETWEEN FIRST AND FIFTH OF EACH MONTH; hasn't started yet medroxyprogesterone 10 mg tablet 10 mg PO .COMPLEX Qty: 30 4RF Rx Instructions: 10 mg orally first 10 days each month; T mecobalamin (vitamin B12) 1,000 mcg lozenge 1,000 mcg PO DAILY Rx Instructions: allow to dissolve in mouth OR may chew lightly before swallowing hyoscyamine sulfate 0.125 mg tablet 0.125 mg PO BID-QID PRN (Reason: dyspepsia) Qty: 30 0RF lithium carbonate 300 MG capsule 300 mg PO DAILY lithium carbonate 600 mg Capsule 600 mg PO QHS ferrous sulfate [FeroSul] 325 mg (65 mg iron) tablet 325 mg PO QODAY imipramine HCl 25 mg tablet 25 mg PO DAILY cholecalciferol (vitamin D3) [Vitamin D3] 25 mcg (1,000 unit) tablet 25 mcg PO DAILY Aristada 441 mg/1.6 mL suspension,extended rel syring 441 mg IM .COMPLEX Rx Instructions: 441 mg intramuscularly Q28D; polyethylene glycol 3350 [Miralax] 17 gram/dose powder 4 g PO ONCE PRN (Reason: constipation) sucralfate 1 gram tablet 1 g PO TID PRN (Reason: constipation) Rx Instructions: 1 g orally Take on an empty stomach. Hour before meals-lunch and dinner; do not take within 2 hours before or after lithium metoclopramide HCl [Reglan] 10 mg tablet 10 mg PO Q6H PRN (Reason: nausea and vomiting) Qty: 20 0RF dicyclomine 20 mg tablet 20 mg PO TID PRN (Reason: abdominal pain) Qty: 30 0RF simvastatin 20 mg tablet 20 mg PO QHS pantoprazole 40 mg tablet,delayed release (DR/EC) 40 mg PO DAILY lactulose 10 gram/15 mL solution 30 g PO BID PRN (Reason: constipation) Qty: 473 1RF diphenoxylate-atropine [Lomotil] 2.5-0.025 mg tablet 1 tab PO BID PRN (Reason: diarrhea) Qty: 30 2RF metoclopramide HCl [Reglan] 10 mg tablet 5 mg PO BID Qty: 28 11RF metoprolol tartrate 50 mg tablet 50 mg PO BID Qty: 180 3RF amlodipine 10 mg tablet 5 mg PO QDAY Qty: 90 3RF Primary Care Provider: Naina Da Silva Referrals: Naina Da Silva, CAREER SERVICES MANAGER-C [Primary Care Provider] - Activity Restrictions/Additional Instructions: Follow with your primary care physician outpatient setting. Return with worsening symptoms or concerns. Chest x-ray is normal and your blood work was normal. Use your Reglan that you have at home for nausea and vomiting. Print Language: Salvadorean Disposition Disposition: Home, Self Care
[2024-05-15 00:14] VITALS: BP 123/65; PULSE 88; RESP 22; TEMP 36.7; O2SAT 99
== END 2024-05-15 00:15 | disposition home or self-care (01) ==
PROVIDERS: Emergency Provider Emergency Medicine; PCP Nurse Practitioner Family; Visit Provider Emergency Medicine
DX: R07.9 Chest pain, unspecified (principal); F31.9 Bipolar disorder, unspecified; E11.9 Type 2 diabetes mellitus without complications; R11.2 Nausea with vomiting, unspecified; K21.9 Gastro-esophageal reflux disease without esophagitis; Z79.899 Other long term (current) drug therapy
CPT/HCPCS: 71045; 80048; 84484; 85025; 93005; 96361; 96374; 99284; A4216

== ENCOUNTER → 2024-05-23 | Outpatient (CLI) | payer MEDICAID, SELFPAY ==
[2024-05-23 09:37] LABS: Lithium 0.64 mmol/L (0.60-1.20)
[2024-05-23 09:42] LABS: ALB/GLOB Ratio 1.1 RATIO (0.9-2.4); AST(SGOT) 23 U/L (<=31); Alanine Aminotransfer ALT/SGPT 32 U/L (<=34); Albumin, Serum 3.8 g/dL (3.5-5.0); Alkaline Phosphatase 58 U/L (35-104); Anion Gap 11 (5-15); BUN 9 mg/dL (4-19); BUN/Creat Ratio 16.1 RATIO (10-20); Calcium,Total 9.4 mg/dL (7.6-11.0); Carbon Dioxide 21.4 mmol/L (21.0-32.0); Chloride 106 mmol/L (98-108); Creatinine, Serum 0.53 mg/dL (0.70-1.20); EST Glomerular Filtration Rate 130 (>60); Globulin 3.4 g/dL (2.2-4.2); Glucose 114 mg/dL (70-99); Potassium 4.2 mmol/L (3.3-5.1); Protein, Total 7.1 g/dL (5.9-8.4); Sodium Level 138 mmol/L (133-145); Total Bilirubin 0.22 mg/dL (0.00-1.30)
== END | disposition home or self-care (01) ==
LOC: LAB 08:22
PROVIDERS: Referring Provider Registered Nurse; Visit Provider Registered Nurse
DX: Z79.899 Other long term (current) drug therapy (principal); Z51.81 Encounter for therapeutic drug level monitoring
CPT/HCPCS: 36415; 80053; 80178; 84443

== ENCOUNTER 2024-06-02 19:25 | Emergency (ER) | payer MEDICAID, SELFPAY ==
[2024-06-02 19:26] VITALS: BP 172/112; PULSE 103; RESP 13; TEMP 36.6; O2SAT 100; BMI 47.9
== END 2024-06-02 21:54 | disposition left against medical advice (07) ==
LOC: ED 21:55
DX: R51.9 Headache, unspecified (principal)

== ENCOUNTER 2024-06-03 08:33 | Emergency (ER) | payer MEDICAID, SELFPAY ==
[2024-06-03 08:35] VITALS: BP 164/127; PULSE 103; RESP 18; TEMP 36.4; O2SAT 99; BMI 46.7
--- NOTE | 2024-06-03 08:57 | CT_ITS ---
PROCEDURE: CT HEAD WITHOUT CONTRAST AND CTA HEAD AND NECK W/ CONTRAST 06/03/2024 REASON FOR EXAM: HEADACHE W/ RIGHT SIDED NEURO SX CP TECHNIQUE: CT head was performed without IV contrast. CTA head and neck was performed with IV contrast. Multiplanar reformats as well as MIP and 3D reconstructions were generated. CONTRAST: Isovue 370 VOLUME: 100 mL RADIATION DOSE SUMMARY: CTDlvol: 44.99+ 19.00+ 27.63+ 26.56 mGy DLP: 2640.27 mGycm Note that this represents the total for the CTA chest and CTA head/neck. One or more dose reduction techniques were used (e.g., Automated exposure control, adjustment of the mA and/or kV according to patient size, use of iterative reconstruction technique). COMPARISON: None. FINDINGS: CT HEAD: Limitation related to soft tissue attenuation through the inferior aspects of the field of view. Cerebrum: Unremarkable. Cerebellum/brainstem: Unremarkable. Note slight limitation due to beam hardening artifact. Ventricles/extra-axial spaces: Unremarkable for age. Paranasal sinuses/mastoid air cells: Unremarkable. Scalp/calvarium: Unremarkable. Other: Unremarkable. CTA NECK: Sensitivity for arterial vascular abnormalities is considerably limited due to suboptimal contrast timing with greater opacification of the internal jugular veins than the systemic arteries intra opacified to roughly 196 Hounsfield units, as compared with 295 within the jugular bulbs. Exam additionally limited by photon starvation. Aortic Arch: Grossly unremarkable. Three-vessel arch. Brachiocephalic and subclavians: Grossly unremarkable. RIGHT Carotid: Right CCA: Grossly unremarkable. Right ICA: Grossly unremarkable Right ECA: Grossly unremarkable LEFT Carotid: Left CCA: Grossly unremarkable Left ICA: Grossly unremarkable Left ECA: Grossly unremarkable Vertebrals: Not well evaluated. LEFT dominant. Distal intracranial V4 segment of the RIGHT vertebral is not well seen, presumably diminutive. Portions of the more inferior RIGHT vertebral artery are also nonvisualized Other: Enlarged thyroid. CTA HEAD: Similar considerable limitation related to contrast timing and venous contamination as described detailed above. Anterior circulation: Grossly patent.. Posterior circulation: Nonvisualized V4 segment RIGHT vertebral artery as above. Otherwise grossly patent. Bilateral PICA nonvisualized. Questionable visualization of the AICA. Suspect origin of the LEFT VAMP STITCHER with questionable diminutive posterior communicating artery, poorly delineated. Aneurysms: None definitely identified allowing for considerable limitations. Venous structures: Grossly unremarkable. Other: None.. CT/CTA Head AND Neck W/ Contrast IMPRESSION: 1. No visible acute noncontrast intracranial findings. If concern persists, co nsider MRI. 2. Considerably limited CTA due to contrast timing. In particular, the vertebr al arteries are very poorly evaluated. The RIGHT vertebral artery is not well seen and could be diminutive or occluded. Otherwi se, no definite high-grade stenosis or large vessel occlusion identified allowing for limitations. Given the extent of limi tations, would consider a repeat CTA based on the level of clinical concern. 3. Additional description as above. Reading Location: [id number]
--- NOTE | 2024-06-03 08:57 | CT_ITS ---
PROCEDURE: CTA CHEST W/WO CONTRAST 06/03/2024 REASON FOR EXAM: CHEST PAIN, UNEQUAL BUE BP R SIDE NEURO SX TECHNIQUE: CTA imaging of the chest with intravenous contrast. Coronal and sagittal reconstruction series were provided. Maximum intensity projection (MIPs) and shaded surface rendering was provided. CONTRAST: Isovue 370 VOLUME: 100 mL One or more dose reduction techniques were used (e.g., Automated exposure control, adjustment of the mA and/or kV according to patient size, use of iterative reconstruction technique). RADIATION DOSE SUMMARY: CTDlvol: 44.99+ 19.00+ 27.63+ 26.56 mGy DLP: 2640.27 mGycm Note that these values correspond to the total for the CTA chest and CTA head/neck. COMPARISON: None. FINDINGS: Exam limited by generalized soft tissue attenuation as well as beam hardening/streak artifact related to thoracolumbar spinal fusion hardware. Exam additionally limited by beam hardening artifact related to the arms which were positioned at the sides rather than above the head. Moderate motion limitation. Heart/pericardium: Heart size is top-normal. Aorta: Grossly unremarkable within limitations of non gated technique and above technical factors. Pulmonary arteries: Top-normal in caliber. Lymph nodes: Grossly unremarkable. Lungs/pleura: Grossly unremarkable.. Airways: Somewhat expiratory appearance of the trachea. Chest wall: Small LEFT anterior chest wall collaterals with associated streak artifact. Upper abdomen: Partially imaged splenomegaly, at least 13.1 cm coronal. Partially imaged hepatomegaly also present. Musculoskeletal: Partially imaged thoracolumbar spinal fusion extending below the field of view with multilevel laminectomy. Cervicothoracic scoliosis. Suspected demineralization.. CT/CTA Chest W/WO Contrast IMPRESSION: 1. Limited exam as above. No definite acute abnormality allowing for limitation s. 2. Partially imaged at least mild hepatosplenomegaly. Correlate with clinical and laboratory evaluation. 3. Additional description as above. Reading Location: [id number]
--- NOTE | 2024-06-03 08:58 | EKG12_ITS ---
Test Reason : Blood Pressure : */* mmHG Vent. Rate : 95 BPM Atrial Rate : 95 BPM P-R Int : 156 ms QRS Dur : 82 ms QT Int : 386 ms P-R-T Axes : 47 0 12 degrees QTcB Int : 485 ms Normal sinus rhythm Minimal voltage criteria for LVH, may be normal variant ( R in aVL ) Borderline ECG Confirmed by Marco Bartlett ([id number]), visual effects editor SATYA FRANKLIN ([id number]) on 06/06/2024 6:48:54 AM Referred By: CHARLENE Confirmed By: Marco Bartlett
--- NOTE | 2024-06-03 09:01 | EX.ED.DYSGE1 ---
HPI History of Present Illness Chief Complaint: Neuro S/Sx Informant: patient and parent Narrative Narrative: 28-year-old female presents saying she been having a migraine for 1 week despite xyne-vpf-[id number] medications that are not helping, she gets migraines frequently and this feels similar with blurred vision although just in the right eye, nausea, photophobia. However she has also been having right arm discomfort and numbness along with this, possibly started before the headache, she denies any neck pain or trouble walking, but also states for a little longer than a week she has also been having chest pain. She states sometimes she feels tightness in my heart and then some palpitations and then heaviness in her chest like an elephant sitting on it. She states she was more concerned this morning when she checked her blood pressure at home because of her headache, and it was 200 systolic in the right arm and 150 systolic in the left arm. She states she has been typically 20 or 30 points higher in the right arm than the left when she has checked it in the past, but she has never had this looked into. She does not usually get chest discomfort. When asked if it was sharp and tearing she initially states yes, but then when we clarified this, she denies it and states it is just feeling heavy like someone sitting on it. She denies radiation into her back. She has had some jaw discomfort at times. [facility] Medical History Alcohol use Picking own skin Low iron Fatty liver Gastroparesis Cardiology follow-up encounter Palpitations Obesity Depression Diabetes GERD (gastroesophageal reflux disease) Irregular heart beat Cellulitis History of echocardiogram Wears glasses Bipolar disorder Anxiety Arthritis Back pain Migraine headache Syncope Non-smoker Bipolar 1 disorder PCOS (polycystic ovarian syndrome) IBS (irritable bowel syndrome) Migraines Autism Home Medications ?Medication ?Instructions ?Recorded ?Last Taken ?Type lithium carbonate 300 mg capsule 300 mg PO DAILY Bipolar 04/05/17 10/22/23 History ferrous sulfate 325 mg (65 mg 325 mg PO QODAY supplement 01/24/22 10/21/23 History iron) tablet (FeroSul) lithium carbonate 600 mg capsule 600 mg PO QHS mental health 01/24/22 10/22/23 History aripiprazole lauroxil 441 mg/1.6 441 mg IM .COMPLEX mental health 12/18/22 10/23/23 History mL suspension, ext.rel. IM syringe ([place]ristada) cholecalciferol (vitamin D3) 25 25 mcg PO DAILY vitamin 12/18/22 10/22/23 History mcg (1,000 unit) tablet (Vitamin D3) imipramine HCl 25 mg tablet 25 mg PO DAILY mental health 12/18/22 10/22/23 History mecobalamin (vitamin B12) 1,000 1,000 mcg PO DAILY 03/20/23 10/22/23 History mcg lozenges pantoprazole 40 mg tablet,delayed 40 mg PO DAILY 06/03/23 10/22/23 History release simvastatin 20 mg tablet 20 mg PO QHS 06/03/23 10/22/23 History lactulose 10 gram/15 mL oral 30 g (45 mL) PO BID PRN 09/28/23 10/21/23 Rx solution constipation #473 mL hyoscyamine sulfate 0.125 mg tablet 0.125 mg PO BID-QID PRN dyspepsia 10/10/23 10/21/23 Rx #30 tabs medroxyprogesterone 10 mg tablet 10 mg PO .COMPLEX #30 tabs 10/17/23 10/22/23 Rx polyethylene glycol 3350 17 4 g PO ONCE PRN constipation 10/17/23 10/24/23 History gram/dose oral powder (Miralax) sucralfate 1 gram tablet 1 g PO TID PRN constipation 10/19/23 10/21/23 History diphenoxylate-atropine 2.5 1 tab PO BID PRN diarrhea #30 tabs 10/29/23 Unknown Rx mg-0.025 mg tablet (Lomotil) metoclopramide HCl 10 mg tablet 5 mg (1/2 x 10 mg) PO BID nausea 04/22/24 Unknown Rx (Reglan) and vomiting #28 tabs metoprolol tartrate 50 mg tablet 50 mg PO BID #180 tabs 04/23/24 Unknown Rx dicyclomine 20 mg tablet 20 mg PO TID PRN abdominal pain 05/08/24 Unknown Rx #30 tabs metoclopramide HCl 10 mg tablet 10 mg PO Q6H PRN nausea and 05/08/24 Unknown Rx (Reglan) vomiting #20 tabs miscellaneous medical supply #1 ea 05/29/24 Unknown Rx amlodipine 5 mg tablet 5 mg PO QDAY 06/02/24 Unknown History Allergy/AdvReac Type Severity Reaction Status Date / Time metformin Allergy Mild Nausea/Vom/ Verified 06/03/24 08:35 Diarrhea pollen extracts Allergy Hives Verified 06/03/24 08:35 escitalopram (From Lexapro) AdvReac Other Verified 06/03/24 08:35 lactase (From Dairy Aid) AdvReac Upset Verified 06/03/24 08:35 Stomach ondansetron (From Zofran (as AdvReac Anaphylaxis Verified 06/03/24 08:35 hydrochloride)) Family History Mother Uterine cancer Other Asthma Depression Diabetes GERD (gastroesophageal reflux disease) Heart disease Hyperlipidemia Hypertension Surgical History History of colonoscopy History of esophagogastroduodenoscopy (EGD) History of tonsillectomy and adenoidectomy H/O knee surgery H/O spinal fusion Social History household members: none housing: apartment current occupational status: unemployed history of recent travel: No Smoking Status: Never smoker alcohol intake: current alcohol intake frequency: holidays/special occasions only substance use type: does not use caffeine: Yes Type: carbonated beverages what type of physical activity do you participate in: walking frequency: daily seatbelt use: always do you feel safe at home: Yes additional social history: single ROS ROS ED Constitutional Constitutional ED: Denies chills or fever(s) Eyes Eyes: Reports blurry vision right and photophobia; Denies diplopia or loss of vision ENT ENT ED: Denies ear pain or sore throat Cardiovascular Cardiovascular: Reports chest pain and palpitations Respiratory/Chest Respiratory/Chest: Denies cough or dyspnea Gastrointestinal Gastrointestinal: Reports nausea; Denies abdominal pain, diarrhea or vomiting Genitourinary Genitourinary ED: Denies dysuria or urinary frequency Musculoskeletal Musculoskeletal: Denies back pain, myalgias or neck pain Integumentary Denies abscess or rash Neurologic Neurologic: Reports headache(s) and paresthesias RUE; Denies weakness Psychiatric Psychiatric: Denies suicidal thoughts EXAM Physical Exam Const Vital Signs: 06/03/24 08:35 06/03/24 09:35 06/03/24 09:35 Temperature 97.6 F L Temperature Source Oral Pulse Rate 103 H Respiratory Rate 18 Blood Pressure 164/127 H 160/98 H Blood Pressure Mean 139 118 Pulse Ox 99 Oxygen Delivery Method Room Air Room Air 06/03/24 09:35 06/03/24 10:00 06/03/24 11:00 Temperature Temperature Source Pulse Rate 98 98 Respiratory Rate 19 H Blood Pressure 150/92 H 169/108 H Blood Pressure Mean 111 128 Pulse Ox 97 98 99 Oxygen Delivery Method Room Air Room Air Room Air 06/03/24 12:00 Temperature Temperature Source Pulse Rate 101 H Respiratory Rate 19 H Blood Pressure 150/92 H Blood Pressure Mean 111 Pulse Ox 98 Oxygen Delivery Method Room Air Positive well nourished, well developed and obese General Appearance ED: well developed and NAD Nutritional Appearance: obese HEENT Reports normocephalic and moist mucous membranes atraumatic Eyes PERRL, EOMs intact bilaterally and conjunctivae normal Eyes Narrative: photophobia Neck no lymphadenopathy, supple and no meningeal signs Neck Narrative: No carotid bruits bilaterally, auscultated [address] each side Resp normal respiratory effort and clear to auscultation bilaterally Cardio regular rate, regular rhythm and no murmurs GI non-tender and non-distended Auscultation: normoactive bowel sounds Palpation: soft Back/Spine no CVA tenderness General Back: other FROM Extremity normal to inspection and full ROM Extremity Narrative: Equal bilateral radial and posterior tibial pulses General Extremety ED: Negative for edema, pulses abnormal or tenderness General Extremity: Negative for edema or pulses abnormal Neuro oriented x3 and CN's II-XII intact bilaterally Neuro Narrative: Decreased sensation right lower face, right upper extremity and right lower extremity compared to contralateral side. No facial droop, no weakness. Normal speech. Normal perception. Sensorium / Orientation: awake and alert Speech: speech normal Gait (Neuro): normal gait Motor Exam: strength 5/5 throughout Psych mental status grossly normal Psych Narrative: flat affect Skin no rashes or lesions noted and no wounds Lesions: no lesions Rashes: no rashes MDM MDM MDM Narrative Medical decision making narrative: Triage blood pressure 154/127, at the time of my exam with a cuff on her left arm her blood pressure is 156/94, and a few minutes later, 179/127 although this patient is young and has no specific reason to have. An aortic dissection or subclavian steal syndrome, given the fact that her neurologic symptoms are new and she has a chronic history of migraines, going to perform [facility] imaging but in addition CT angiography including the chest, neck, and brain to evaluate for emergent arterial phenomenon such as dissection, aneurysm, stenosis, or less likely and her thrombosis. She did have some partial improvement with Benadryl and Reglan. I reviewed the imaging of her head, neck, chest, and I agree with the report which I also reviewed. Basically negative for any acute. Patient's blood pressures have mostly been in the 150/90 range. I do not think she needs emergent treatment at this number, but I do think she should follow-up for reevaluation of her blood pressures. She states her headache is no longer a migraine just a headache. Labs including 2 sequential troponins are normal, her EKG is normal. She will be offered Toradol prior to discharge and she will follow-up and she is comfortable with that plan. Lab Data Attestation: I reviewed the patient's lab results. Labs: Laboratory Results - last 24 hr 06/03/24 06/03/24 09:30 11:10 WBC 6.5 RBC 4.53 Hgb 12.1 Hct 36.7 L MCV 81.0 MCH 26.7 L MCHC 33.0 RDW Std Deviation 42.2 RDW Coeff of Delmy 14.3 Plt Count 347 MPV 9.8 Immature Gran % (Auto) 0.300 Neut % (Auto) 64.3 Lymph % (Auto) 25.5 Leon % (Auto) 8.9 Eos % (Auto) 0.5 Baso % (Auto) 0.5 Absolute Neuts (auto) 4.2 Absolute Lymphs (auto) 1.66 Nucleated RBC % 0 Sodium 139 Potassium 3.5 Chloride 105 Carbon Dioxide 22.0 Anion Gap 12 BUN 9 Creatinine 0.53 L Estim Creat Clear Calc 225.17 Est GFR (MDRD) Non-Af 130 BUN/Creatinine Ratio 17.9 Glucose 118 H Calcium 8.9 Troponin T High Sens < 6 Troponin T Hi Sens 2 Hr < 6 Radiography Diagnostic Testing: Clinical Impression(s) from Imaging Studies Chest CTA 06/03/24 08:57 IMPRESSION: 1. Limited exam as above. No definite acute abnormality allowing for limitations. 2. Partially imaged at least mild hepatosplenomegaly. Correlate with clinical and laboratory evaluation. 3. Additional description as above. Reading Location: [facility] Head/Neck CTA 06/03/24 08:57 IMPRESSION: 1. No visible acute noncontrast intracranial findings. If concern persists, consider MRI. 2. Considerably limited CTA due to contrast timing. In particular, the vertebral arteries are very poorly evaluated. The RIGHT vertebral artery is not well seen and could be diminutive or occluded. Otherwise, no definite high-grade stenosis or large vessel occlusion identified allowing for limitations. Given the extent of limitations, would consider a repeat CTA based on the level of clinical concern. 3. Additional description as above. Reading Location: [facility] Rhythm Strip Rhythm Strip: Sinus Rhythm Rate: 95 Ectopy: None EKG Initial EKG: Attestation: I personally reviewed and interpreted this EKG as follows: Interpretation: Sinus Rhythm and No Acute Injury Pattern Comments: Nml axis & intervals; nml EKG Discharge Plan Triage Chief Complaint: Neuro S/Sx ED Provider: Jaylon Galicia Dx/Rx/DC Orders Clinical Impression: Migraine, Chest pain of unknown etiology, Paresthesia of right upper and lower extremity, Accelerated hypertension Instructions: ED Chest Pain, Noncardiac, ED Paraesthesias Prescriptions: No Action medroxyprogesterone 10 mg tablet 10 mg PO .COMPLEX Qty: 30 4RF Rx Instructions: 10 mg orally first 10 days each month; T mecobalamin (vitamin B12) 1,000 mcg lozenge 1,000 mcg PO DAILY Rx Instructions: allow to dissolve in mouth OR may chew lightly before swallowing hyoscyamine sulfate 0.125 mg tablet 0.125 mg PO BID-QID PRN (Reason: dyspepsia) Qty: 30 0RF (DME) miscellaneous medical supply Misc See Rx Instructions .Route Qty: 1 0RF Rx Instructions: As directed lithium carbonate 300 MG capsule 300 mg PO DAILY lithium carbonate 600 mg Capsule 600 mg PO QHS ferrous sulfate [FeroSul] 325 mg (65 mg iron) tablet 325 mg PO QODAY imipramine HCl 25 mg tablet 25 mg PO DAILY cholecalciferol (vitamin D3) [Vitamin D3] 25 mcg (1,000 unit) tablet 25 mcg PO DAILY Aristada 441 mg/1.6 mL suspension,extended rel syring 441 mg IM .COMPLEX Rx Instructions: 441 mg intramuscularly Q28D; polyethylene glycol 3350 [Miralax] 17 gram/dose powder 4 g PO ONCE PRN (Reason: constipation) sucralfate 1 gram tablet 1 g PO TID PRN (Reason: constipation) Rx Instructions: 1 g orally Take on an empty stomach. Hour before meals-lunch and dinner; do not take within 2 hours before or after lithium metoclopramide HCl [Reglan] 10 mg tablet 10 mg PO Q6H PRN (Reason: nausea and vomiting) Qty: 20 0RF dicyclomine 20 mg tablet 20 mg PO TID PRN (Reason: abdominal pain) Qty: 30 0RF simvastatin 20 mg tablet 20 mg PO QHS pantoprazole 40 mg tablet,delayed release (DR/EC) 40 mg PO DAILY lactulose 10 gram/15 mL solution 30 g PO BID PRN (Reason: constipation) Qty: 473 1RF diphenoxylate-atropine [Lomotil] 2.5-0.025 mg tablet 1 tab PO BID PRN (Reason: diarrhea) Qty: 30 2RF metoclopramide HCl [Reglan] 10 mg tablet 5 mg PO BID Qty: 28 11RF metoprolol tartrate 50 mg tablet 50 mg PO BID Qty: 180 3RF amlodipine 5 mg tablet 5 mg PO QDAY Primary Care Provider: Karuna Lim Referrals: Karuna Lim, TELERADIOLOGIST-C [Primary Care Provider] - As soon as possible Print Language: Sami Disposition Disposition: Home, Self Care
[2024-06-03 09:35] VITALS: BP 160/98; PULSE 98; RESP 19; O2SAT 97
[2024-06-03] MEDS: 0.9% Normal Saline (1000mL) 1,000 ML 999 ML IV (09:35)
[2024-06-03 09:38] VITALS: BMI 47.7
[2024-06-03] MEDS: DiphenhydrAMINE 50 MG/ML Syringe 25 MG IV (09:39)
[2024-06-03] MEDS: Metoclopramide 10 MG/2 ML Vial 5 MG IV (09:40)
[2024-06-03 09:49] LABS: Absolute Lymphocyte Count 1.66 X10^3/uL (0.83-4.51); Absolute Neutrophil Count 4.2 X10^3/uL (2.0-7.7); Basophil# 0.03 X10^3/uL; Basophil% 0.5 % (0-1); Eosinophil# 0.03 X10^3/uL; Eosinophils% 0.5 % (0-5); Hematocrit 36.7 % (37-47); Hemoglobin 12.1 g/dL (12.0-15.0); Lymphocyte # 1.66 X10^3/ul (0.83-4.51); Lymphocyte % 25.5 % (19-41); Mean Corpuscular Hgb 26.7 pg (27.0-32.0); Mean Platelet Vol. 9.8 fl (6.2-12.0); Monocyte# 0.58 X10^3/uL; Monocyte% 8.9 % (0-10); NRBC Flagged by Analyzer 0 % (0-5); Neutrophil # 4.19 X10^3/uL (2.7-7.7); Neutrophil % 64.3 % (47-70); Platelet Count 347 K/mm3 (150-450); RBC Distribution Width CV 14.3 % (11.6-14.6); RBC Distribution Width SD 42.2 fl (35.1-43.9); Red Blood Count 4.53 M/mm3 (4.2-5.4); White Blood Count 6.5 K/mm3 (4.4-11.0)
[2024-06-03 10:00] VITALS: BP 150/92; PULSE 98; O2SAT 98
[2024-06-03 10:33] LABS: Anion Gap 12 (5-15); BUN 9 mg/dL (4-19); BUN/Creat Ratio 17.9 RATIO (10-20); Calcium,Total 8.9 mg/dL (7.6-11.0); Chloride 105 mmol/L (98-108); Creatinine, Serum 0.53 mg/dL (0.70-1.20); EST Glomerular Filtration Rate 130 (>60); Estimated Creatinine Clearance 225.17 ml/min (50-250); Glucose 118 mg/dL (70-99); Potassium 3.5 mmol/L (3.3-5.1); Sodium Level 139 mmol/L (133-145); Troponin T High Sensitivity < 6 ng/L (<=14)
[2024-06-03 11:00] VITALS: BP 169/108; O2SAT 99
[2024-06-03 11:59] LABS: Troponin T High Sens 2 HR < 6 ng/L (<=14)
[2024-06-03 12:00] VITALS: BP 150/92; PULSE 101; RESP 19; O2SAT 98
[2024-06-03] MEDS: Ketorolac 30 MG/ML Syringe IV (13:09)
[2024-06-03 13:14] VITALS: BP 161/87; PULSE 107; RESP 22; TEMP 36.6; O2SAT 99
== END 2024-06-03 13:30 | disposition home or self-care (01) ==
PROVIDERS: Emergency Provider Emergency Medicine; Visit Provider Emergency Medicine
DX: G43.909 Migraine, unspecified, not intractable, without status migrainosus (principal); F31.9 Bipolar disorder, unspecified; E11.9 Type 2 diabetes mellitus without complications; R07.9 Chest pain, unspecified; R10.11 Right upper quadrant pain; R20.2 Paresthesia of skin; I10 Essential (primary) hypertension; Z79.899 Other long term (current) drug therapy; K21.9 Gastro-esophageal reflux disease without esophagitis
CPT/HCPCS: 70496; 70498; 71275; 76705; 80048; 84484; 85025; 93005; 96361; 96374; 96375; 99284; Q9967; A4216

== ENCOUNTER → 2024-06-03 | Outpatient (CLI) | payer MEDICAID, SELFPAY ==
--- NOTE | 2024-06-03 07:44 | US_ITS ---
PROCEDURE: ABDOMEN LIMITED 06/03/2024 REASON FOR EXAM: RIGHT UPPER QUADRANT PAIN COMPARISON: Prior CT scan dated May 08, 2024. FINDINGS: Liver: Diffusely echogenic suggesting fatty infiltration. Hepatomegaly. The liver measures 21.5 cm. Gallbladder: No stones sludge wall thickening or tenderness. Gallbladder wall measures 2 mm. Common bile duct: Normal measuring 4 mm. . Pancreas: Normal Other: Visualized portions of the right kidney are unremarkable. No right upper quadrant ascites. US/Abdomen Limited IMPRESSION: Fatty infiltration of the liver. Hepatomegaly. Reading Location: [place] [id number]
== END | disposition home or self-care (01) ==
LOC: OPUS 07:42
DX: R10.11 Right upper quadrant pain (principal)
CPT/HCPCS: 76705

== ENCOUNTER → 2024-06-10 | Outpatient (CLI) | payer MEDICAID, SELFPAY ==
[2024-06-10 12:44] LABS: Absolute Neutrophil Count 5.9 X10^3/uL (2.0-7.7); Basophil# 0.05 X10^3/uL; Basophil% 0.6 % (0-1); Eosinophil# 0.02 X10^3/uL; Eosinophils% 0.2 % (0-5); Hematocrit 38.5 % (37-47); Hemoglobin 12.7 g/dL (12.0-15.0); Lymphocyte % 24.7 % (19-41); Mean Corpuscular Hgb 26.7 pg (27.0-32.0); Mean Corpuscular Volume 81.1 fL (81-99); Monocyte# 0.66 X10^3/uL; Monocyte% 7.4 % (0-10); NRBC Flagged by Analyzer 0 % (0-5); Neutrophil # 5.94 X10^3/uL (2.7-7.7); Neutrophil % 66.8 % (47-70); Platelet Count 414 K/mm3 (150-450); RBC Distribution Width CV 14.3 % (11.6-14.6); RBC Distribution Width SD 42.1 fl (35.1-43.9); Red Blood Count 4.75 M/mm3 (4.2-5.4); White Blood Count 8.9 K/mm3 (4.4-11.0)
[2024-06-10 13:19] LABS: ALB/GLOB Ratio 1.2 RATIO (0.9-2.4); AST(SGOT) 22 U/L (<=31); Alanine Aminotransfer ALT/SGPT 28 U/L (<=34); Albumin, Serum 3.9 g/dL (3.5-5.0); Alkaline Phosphatase 64 U/L (35-104); Anion Gap 12 (5-15); BUN 12 mg/dL (4-19); BUN/Creat Ratio 12.5 RATIO (10-20); Calcium,Total 9.4 mg/dL (7.6-11.0); Carbon Dioxide 23.3 mmol/L (21.0-32.0); Chloride 104 mmol/L (98-108); Creatinine, Serum 0.98 mg/dL (0.70-1.20); EST Glomerular Filtration Rate 82 (>60); Globulin 3.3 g/dL (2.2-4.2); Glucose 120 mg/dL (70-99); Potassium 3.9 mmol/L (3.3-5.1); Protein, Total 7.1 g/dL (5.9-8.4); Sodium Level 138 mmol/L (133-145)
== END | disposition home or self-care (01) ==
LOC: VSLAB 12:24
DX: E11.9 Type 2 diabetes mellitus without complications (principal)
CPT/HCPCS: 36415; 80053; 85025

== ENCOUNTER → 2024-06-20 | Outpatient (CLI) | payer MEDICAID, SELFPAY ==
--- NOTE | 2024-06-20 09:43 | ART_ITS ---
Reason For Study Reason For Study: Uneven Brachial BP / RUE Pain and Tingling Procedure A bilateral upper extremity continuous wave Doppler with analog waveform analysis and segmental pressures. Left Segmental Pressures Left brachial= 157mmHg. Left forearm by way of the radial artery = 156mmHg. Left radial= 167mmHg. Left ulnar= 165mmHg. Left digit = 114 mmHg. The left ulnar waveforms are triphasic. The left radial waveforms are triphasic. Right Segmental Pressures Right brachial= 148mmHg. Right forearm pressure by way of the radial artery = 162mmHg. Right radial= 165mmHg. Right ulnar= 155mmHg. Right digit = 130 mmHg. The right ulnar waveforms are triphasic. The right radial waveforms are triphasic. Indices The right wrist-brachial index is 1.05. The right digital-brachial index is 0.83. The left wrist-brachial index is 1.06. The left digital-brachial index is 0.73. VL/Upper Extremity Arterial Study Interpretation Summary Right wrist-brachial index 1.05, normal. Doppler/PVR waveforms of the right arm normal at rest. Digit index diminished, digit disease vs spasm. Left wrist brachial index 1.06, normal. Doppler/PVR waveforms of the left arm n ormal at rest. Digit index diminished, digit disease vs spasm. Ordering Physician: Shawanda Ramires Referring Physician: Frances Bolton [facility] Performed By: Tylor Encarnacion RVJojo
== END | disposition home or self-care (01) ==
LOC: CVS 09:42
PROVIDERS: Referring Provider Nurse Practitioner Gerontology; Visit Provider Nurse Practitioner Gerontology
DX: I73.9 Peripheral vascular disease, unspecified (principal)
CPT/HCPCS: 93923

== ENCOUNTER → 2024-08-07 | Outpatient (CLI) | payer MEDICAID, SELFPAY ==
--- NOTE | 2024-08-07 13:28 | MRI_ITS ---
PROCEDURE: MRI ABD WITH AND W/O CONTRAST 08/07/2024 REASON FOR EXAM: LESION ON LIVER TECHNIQUE: MRI ABD WITH AND W/O CONTRAST Multiplanar and multisequence images were obtained. CONTRAST: Clariscan VOLUME: 27mL COMPARISON: CT abdomen and pelvis with IV contrast, 05/08/2024. Right upper quadrant ultrasound, 06/03/2024. Do not see anything FINDINGS: Liver: There is moderate fatty liver infiltration. Biliary: The gallbladder is normal. There is no abnormal intra or extrahepatic biliary ductal dilatation. Pancreas: Normal. Spleen: There is mild splenomegaly with the spleen measuring 13.6 cm in pole to pole length. Adrenals: Normal. Kidneys: There is a benign cortical cyst in the right kidney. Peritoneum / Retroperitoneum: There is a benign mesenteric cyst lateral to the right kidney. Lymph Nodes: There is no intra or retroperitoneal lymphadenopathy. Major Vessels: Normal. Bones: Status post posterior fusion of multiple lower thoracic and lumbar vertebral levels. MRI/MRI Abd WITH and W/O Contrast IMPRESSION: 1. There is fatty liver infiltration. There are no focal abnormality seen wit hin the liver. 2. Other findings as noted. Reading Location: [id number]
== END | disposition home or self-care (01) ==
LOC: OPMRI 13:11
PROVIDERS: Referring Provider Internal Medicine Gastroenterology; Visit Provider Internal Medicine Gastroenterology
DX: R93.5 Abnormal findings on diagnostic imaging of other abdominal regions, including retroperitoneum (principal); K76.9 Liver disease, unspecified
CPT/HCPCS: 74183; A9575; A4216

== ENCOUNTER → 2024-09-02 | Outpatient (CLI) | payer MEDICAID, SELFPAY ==
[2024-09-02 14:34] LABS: Mucous, Urine 0 SEEN /hpf (<or=2+); Red Blood Cells-Urine 0 SEEN /hpf (0-5)
[2024-09-02 16:37] LABS: Hematocrit 35.8 % (37-47); Hemoglobin 11.7 g/dL (12.0-15.0); Immature Granulocytes Count 0.020 X10^3/uL (0.0-0.0); Mean Corp Hgb Conc 32.7 g/dL (32-36); Mean Corpuscular Volume 82.5 fL (81-99); Mean Platelet Vol. 9.2 fl (6.2-12.0); NRBC Flagged by Analyzer 0 % (0-5); Platelet Count 313 K/mm3 (150-450); RBC Distribution Width CV 14.3 % (11.6-14.6); RBC Distribution Width SD 43.1 fl (35.1-43.9); Red Blood Count 4.34 M/mm3 (4.2-5.4); White Blood Count 8.4 K/mm3 (4.4-11.0)
[2024-09-02 17:39] LABS: Anion Gap 10 (5-15); BUN 12 mg/dL (4-19); BUN/Creat Ratio 22.5 RATIO (10-20); Calcium,Total 9.3 mg/dL (7.6-11.0); Carbon Dioxide 22.4 mmol/L (21.0-32.0); Chloride 107 mmol/L (98-108); Glucose 90 mg/dL (70-99); Potassium 4.0 mmol/L (3.3-5.1)
[2024-09-02 17:54] LABS: Glucose, Dipstick Normal (Normal); Ketone-Dipstick Negative (Negative); Leukocyte Esterase-Dipstick Negative /ul (Negative); Nitrite-Dipstick Negative (Negative); Occult Blood-Urine Negative /ul (Negative); Protein-Dipstick 15 mg/dl (Negative); Specific Gravity, Urine 1.015 (1.002-1.030); Urine Bilirubin Dipstick Negative (Negative)
[2024-09-02 18:00] LABS: Color, Urine YELLOW (Yellow)
[2024-09-02 18:03] LABS: Squamous Epithelial Cells - UA 0-5 SEEN /hpf (5-10)
== END | disposition home or self-care (01) ==
LOC: VSLAB 14:31
PROVIDERS: Visit Provider Nurse Practitioner Family
DX: N89.8 Other specified noninflammatory disorders of vagina (principal); R30.0 Dysuria
CPT/HCPCS: 36415; 80048; 81001; 85025; 87086; 87088

== ENCOUNTER 2024-09-04 21:13 | Emergency (ER) | payer MEDICAID, SELFPAY ==
[2024-09-04 21:14] VITALS: BP 162/95; PULSE 71; RESP 16; TEMP 36.9; O2SAT 100; BMI 48.2
--- NOTE | 2024-09-04 22:22 | CT_ITS ---
PROCEDURE: BRAIN/HEAD WITHOUT CONTRAST 09/04/2024 REASON FOR EXAM: SYNCOPE TECHNIQUE: BRAIN/HEAD WITHOUT CONTRAST Coronal and Sagittal reconstruction series were provided. One or more dose reduction techniques were used (e.g., Automated exposure control, adjustment of the mA and/or kV according to patient size, use of iterative reconstruction technique. RADIATION DOSE SUMMARY: CTDlvol: 45 mGy DLP: 847 mGycm COMPARISON: 06/03/2024 FINDINGS: No abnormal brain densities. No intracranial hemorrhage. No hydrocephalus or midline shift. No acute scalp or skull pathology. Unremarkable orbits. Clear sinuses. CT/Brain/Head without Contrast IMPRESSION: No acute intracranial findings. [facility]
--- OUTSIDE RECORDS SUMMARY | 2024-09-04 22:26 | XMS RPT_ITS | CCD ---
Author Organization [facility] Inform ion Partnership [facility] Care Team Providers Care Corporate Legal Intern Name Role Phone ORLANDO LEES SR Unavailable Unavailable RAUL, CHRIS Unavailable Unavailable RAUL, CHRIS Unavailable Unavailable RAPACZ, DELMI Unavailable Unavailable RAPACZ, DELMI Unavailable Unavailable RAUL, CHRIS Unavailable Unavailable SOMMER LECHUGA Unavailable Unavailable RAUL, CHRIS Unavailable Unavailable RAUL, CHRIS Unavailable Unavailable Mohan Pacheco Unavailable Unavailable Avella, Chris Unavailable Unavailable Raul, Chris Unavailable Unavailable VANI MANCILLA Primary Care Physician [facility], Daniel Tierney Primary Care Pro vider [facility], Daniel Tierney Referring Provid er Paul SR. MANAGER CORPORATE COMMUNICATIONS, SR. MANAGER CORPORATE COMMUNICATIONS-Kimi Le Attending Provider [phone] Avella DO, Chris D Unavailable Unavailab Crys Barraza Primary Care Provider Raul STEVENSON Chris D Unavailable Unavailab Crys Barraza Primary Care Provider [facility], Daniel Tierney Primary Care Pro vider [facility], Daniel Tierney Referring Provid er Paul SR. MANAGER CORPORATE COMMUNICATIONS, SR. MANAGER CORPORATE COMMUNICATIONS-Kimi Le Attending Provider [phone] [facility], Daniel Tierney Primary Care Pro vider [facility], Daniel Tierney Referring Provid er Paul SR. MANAGER CORPORATE COMMUNICATIONS, SR. MANAGER CORPORATE COMMUNICATIONS-Kimi Le Attending Provider [phone] [facility], Daniel Tierney Primary Care Pro vider [facility], Daniel Tierney Referring Provid er Friend, Dr. Johns Attending Provider [phone] Paul SR. MANAGER CORPORATE COMMUNICATIONS, SR. MANAGER CORPORATE COMMUNICATIONS-Kimi Le Attending Provider [phone] [facility], [facility] Primary Care Pro vider [facility], [facility] Referring Provid er Friend, Dr. Johns Attending Provider [phone] Friend, Dr. Johns Referring Provider [phone] Friend, Dr. Johns Other Provider [phone] [facility], [facility] Primary Care Pro vider Friend, Dr. Johns Attending Provider [phone] [facility], [facility] Referring Provid er Paul SR. MANAGER CORPORATE COMMUNICATIONS, SR. MANAGER CORPORATE COMMUNICATIONS-Kimi Le Attending Provider [phone] [facility], [facility] Primary Care Pro vider Friend, Dr. Johns Attending Provider [phone] ROSAS RETAIL ASSOCIATE-INTERNAL COMBUSTION ENGINEER, VANI Primary Care Unavailab noelle HUANG DO, DR JUDSON Godinez Attending Unavailable Dr. Sarah Purdy Emergency Provider Dr. [place] Wisdom Admit Provider Dr. [place] Wisdom Attending Provider Dr. [place] Wisdom Other Provider Dr. Garrick Mcgowan Attending Provider [phone] Laura Li Attending Provider Unavailable Dr. Laura Li Other Provider Unavailable [facility], [facility] Primary Care Pro vider Dr. Sarah Purdy Emergency Provider Dr. [place] Wisdomit Provider Dr. [place] Wisdom Attending Provider Dr. [place] Wisdom Other Provider Dr. Garrick Mcgowan Attending Provider Dr. Laura Li Attending Provider Unavailable Dr. Laura Li Other Provider Unavailable [facility], [facility] Referring Provid er Dr. Andreas Oliva Attending Provider Dr. Hubert Mo Attending Provider Avinash SR. MANAGER CORPORATE COMMUNICATIONS, SR. MANAGER CORPORATE COMMUNICATIONS-C Naina Primary Care Provider CAL PAYTON Admitting Unavailable CAL PAYTON Attending Unavailable DULCE CHAVEZ Consulting Unavailable [facility], [facility] Primary Care Pro vider [facility], [facility] Referring Provid er Hazel, Dr. Johns Attending Provider Dr. Hubert Mo Attending Provider Avinash SR. MANAGER CORPORATE COMMUNICATIONS, SR. MANAGER CORPORATE COMMUNICATIONS-C Naina Primary Care Provider Chris Carter DO Unavailable Clinic, [facility] Primary Care Provider Un available [facility], [facility] Referring Provid er [facility], [facility] Primary Care Provider Un available Avinash SR. MANAGER CORPORATE COMMUNICATIONS, Naina Unavailable Crys Obrien CNP Primary Care Provider Unallocated , Noms Provider Primary Care Provi yoli Aleksandra SR. MANAGER CORPORATE COMMUNICATIONS, Stefania S Unavailable BALJITT, STEFANIA S Attending Unavailable ALEKSANDRA, STEFANIA S Attending Unavailable HUEY CORTES Attending Unavailable JEY JOHNSON Referring Unavaila ble Avinash SR. MANAGER CORPORATE COMMUNICATIONS-C, Naina Primary Care Provider Avinash SR. MANAGER CORPORATE COMMUNICATIONS-C, Naina Referring Provider Dr. Marco Bartlett MD Attending Provider Karuna Tejada Attending Provider Dr. Stan Lin DO Referring Provider Dr. Stan Lin DO Emergency Provider [phone] Avinash SR. MANAGER CORPORATE COMMUNICATIONS-C, Naina Primary Care Provider Dr. Stan Lin DO Attending Provider Mari SR. MANAGER CORPORATE COMMUNICATIONS-C, Karina Attending Provider Mari SR. MANAGER CORPORATE COMMUNICATIONS-C, Karina Referring Provider Beam SR. MANAGER CORPORATE COMMUNICATIONS-C, Zebulun Primary Care Provider Avinash SR. MANAGER CORPORATE COMMUNICATIONS-C, Naina Referring Provider Ike SR. MANAGER CORPORATE COMMUNICATIONS-C, Shawanda Attending Provider [phone] Provider, Ed Physician Emergency Provider Eboni Lim SR. MANAGER CORPORATE COMMUNICATIONS-C, Zebuluadalgisa Referring Provider Grayson VARGAS, Dr. Iyer Emergency Provider Avinash SR. MANAGER CORPORATE COMMUNICATIONS-C, Naina Primary Care Provider Carina SR. MANAGER CORPORATE COMMUNICATIONS-C, Zebueliezern Attending Provider Provider, Ed Physician Attending Provider Eboni Galicia MD, Dr. Iyer Attending Provider Ike SR. MANAGER CORPORATE COMMUNICATIONS-C, Shawanda Referring Provider Fannie VARGAS, Dr. Preciado Attending Provider Dr. Marco Bartlett MD Attending Provider Dr. Andreas Oliva DO Attending Provider Dr. Andreas Oliva DO Referring Provider Avinash VSC, Naina Primary Care Unavailabl e Beam VSC, Zebueilezern Attending Unavailable Avinash VSC, Naina Attending Unavailabl e Avinash VSC, Naina Referring Unavailabl e Avinash VSC, Naina Primary Care Unavailabl e Avinash VSC, Naina Primary Care Unavailabl e Beam VSC, Zebueliezern Attending Unavailable Beam VSC, Zebulun Primary Care Unavailable Shawanda Ramires Attending Unavailable Shawanda Ramires Referring Unavailable Avinash VSC, Naina Primary Care Unavailabl e Beam VSC, Zebudeb Attending Unavailable Avinash VSC, Naina Primary Care Unavailabl e Andreas Oliva Referring Unavailable Andreas Oliva Attending Unavailable Andreas Oliva Referring Unavailable Andreas Oliva Attending Unavailable Beam VSC, Zebulun Primary Care Unavailable Avinash VSC, Naina Referring Unavailabl e Avinash VSC, Naina Primary Care Unavailabl e Araceli Rosas NP Attending Unavailable Beam VSC, Zebulun Primary Care Unavailable Shawanda Ramires Attending Unavailable Shawanda Ramires Referring Unavailable Beam VSC, Zebulun Primary Care Unavailable Beam VSC, Zebulun Attending Unavailable Beam VSC, Zebulun Primary Care Unavailable Beam VSC, Zebulun Attending Unavailable Beam VSC, Zebulun Referring Unavailable Avinash VSC, Naina Primary Care Unavailabl e Paolo Weems Attending Unavailable Avinash VSC, Naina Primary Care Unavailabl e Stan Lin Attending Unavailable Stan Lin Referring Unavailable Jaylon Galicia Attending Unavailable Beam VSC, Zebulun Primary Care Unavailable Avinash VSC, Naina Primary Care Unavailabl e Stan Lin Attending Unavailable Beam VSC, Zebulun Primary Care Unavailable Karina Guerra NP Attending Unavailable Karina Guerra NP Referring Unavailable Avinash VSC, Naina Primary Care Unavailabl e Jaylon Galicia Attending Unavailable Beam VSC, Zebulun Primary Care Unavailable Ozzy Greco Attending Unavailable Shawanda Ramires Referring Unavailable Avinash VSC, Naina Primary Care Unavailabl e Friend, Andreas Referring Unavailable Friend, Andreas Attending Unavailable Avinash VSC, Naina Primary Care Unavailabl e Friend, Andreas Referring Unavailable Friend, Andreas Attending Unavailable Avinash VSC, Naina Referring Unavailabl e Avinash VSC, Naina Primary Care Unavailabl e Friend, Andreas Attending Unavailable Avinash VSC, Naina Primary Care Unavailabl e Friend, Andreas Referring Unavailable Friend, Andreas Attending Unavailable Avinash VSC, Naina Primary Care Unavailabl e [facility], Daniel Tierney Referring Unavailable Zeus Miller NP Attending Unavailable Provider, Ed Physician Attending Unavailab le Beam VSC, Zebulun Primary Care Unavailable Avinash VSC, Naina Referring Unavailabl e Avinash VSC, Naina Primary Care Unavailabl e Bryson Gonsalves NP Attending Unavailable Avinash VSC, Naina Referring Unavailabl e Avinash VSC, Naina Primary Care Unavailabl e Radha Jang Attending Unavailable Avinash VSC, Naina Referring Unavailabl e Beam VSC, Zebulun Primary Care Unavailable Shawanda Ramires Attending Unavailable Shawanda Ramires Attending Unavailable Beam VSC, Zebuluadalgisa Referring Unavailable Beam VSC, Zebulun Primary Care Unavailable Avinash VSC, Naina Primary Care Unavailabl e Avinash VSC, Naina Referring Unavailabl e Marco Bartlett Attending Unavailable Avinash VSC, Naina Referring Unavailabl e Friend, Andreas Attending Unavailable Beam VSC, Zebulun Primary Care Unavailable Avinash VSC, Naina Referring Unavailabl e Avinash VSC, Naina Primary Care Unavailabl e Friend, Anderas Consulting Unavailable Friend, Andreas Attending Unavailable Shawanda Ramires Referring Unavailable Marco Bartlett Attending Unavailable Beam VSC, Zebulun Primary Care Unavailable Avinash VSC, Naina Referring Unavailabl e Avinash VSC, Naina Primary Care Unavailabl e Jazmine Barker Attending Unavailable Avinash VSC, Naina Primary Care Unavailabl e Friend, Andreas Referring Unavailable Friend, Andreas Attending Unavailable KIBERA, HUEY Referring Unavailable BENDARAM, JYE LAGUNA Attending Unavaila ble BENDARAM, JEY LAGUNA Referring Unavaila ble BENDARAM, JEY LAGUNA Attending Unavaila ble BENDARAM, JEY LAGUNA Referring Unavaila ble CARISSA SHERWOOD Attending Unavailable BENDARAM, JEY LAGUNA Referring Unavaila ble BENDARAM, JEY LAGUNA Attending Unavaila ble YAMILETHLAURA VINCENT Attending Unavailable KIBERA, HUEY Referring Unavailable BENDARAM, JEY LAGUNA Attending Unavaila ble YAMILETHLAURA Attending Unavailable Allergies Allergy Classification Reported Allergen(s) Allergy Type Date of Onset Reaction(s) Facility (20 sources) escitalopram; Translations: [ESCITALOPRAM OXALATE] Drug Allergy 07-15-19 17 Mental Status Change [facility] Repository (20 sources) lactase; Translations: [LACTASE] Drug Allergy 09-12-19 12 Diarrhea, GI Upset [facility] Repository (2 sources) ondansetron; Translations: [ONDANSETRON HCL] Drug Allergy 07-15-19 17 AOF [facility] Repository (20 sources) Seasonal allergy; Translations: [SEASONAL ALLERGIES] Propensity to adverse reactions (disorder) 12-03-19 13 Cough [facility] Repository (1 source) GLUTEN MEAL; Translations: [GLUTEN MEAL] Propensity to adverse reactions to drug (disorder) 07-15-19 [facility] Repository (20 sources) Escitalopram; Translations: [escitalopram] Drug Allergy 07-15-19 Other: See Comments [facility] Comment on above: increased si (20 sources) Ondansetron; Translations: [ondansetron] Drug Allergy 07-15-19 17 Anaphylaxis, Other: See Comments [facility] (20 sources) Pollen; Translations: [POLLEN EXTRACTS] Allergy to substance 12-10-19 Hives, Intolerance [facility] (20 sources) Ondansetron; Translations: [ONDANSETRON (PF) IN DEXTROSE] Drug Allergy 08-22-19 17 Swelling, GI Upset [facility] (13 sources) Tricyclic Compounds Drug Intolerance 08-22-19 Other: See Comments [facility] (20 sources) Gluten Flour; Translations: [GLUTEN FLOUR] Food Intolerance 08-22-19 [address] [facility] (20 sources) metFORMIN; Translations: [METFORMIN] Drug Allergy 02-28-19 23 Diarrhea, GI Upset [facility] (20 sources) broccoli allergenic extract; Translations: [BROCCOLI] Drug Allergy 04-08-19 24 Diarrhea [facility] Repository (20 sources) cauliflower allergenic extract; Translations: [CAULIFLOWER] Drug Allergy 04-08-19 24 Diarrhea [facility] Repository (20 sources) tomato allergenic extract; Translations: [TOMATO] Drug Allergy 04-08-19 24 GI Upset [facility] Repository (12 sources) Tricyclic Antidepressants And Tricyclic Compounds; Translations: [TRICYCLIC ANTIDEPRESSANTS AND TRICYCLIC COMPOUNDS] Drug Intolerance 08-22-19 Other: See Comments [facility] (1 source) Escitalopram Drug Allergy 07-25-19 [facility] Repository (1 source) metFORMIN Drug Allergy 07-25-19 25 [facility] (1 source) Ondansetron Drug Allergy 07-25-19 25 [facility] (1 source) Pollen Drug allergy (disorder) 07-25-19 [facility] Rep[facility] Medications Current Medications Medication Drug Class(es) Dates Sig (Normalized) Sig (Original) amLODIPine 2.5 mg oral tablet (20 sources) Dihydropyridine Calcium Channel Radha Start: 07-29-2024 take 1 tablet by mouth once daily Amlodipine 2.5 mg tablet Active 2.5 mg PO daily 60 July 29, 2024 5:00pm Start: 06-10-2024 End: 07-29-2024 take 1 tablet by mouth twice daily amLODIPine (NORVASC) 2.5 mg tablet Take 2.5 mg by mouth two times a day. 07/01/2024 Active Start: 05-29-2024 End: 06-02-2024 take 2.5 mg by mouth once daily Amlodipine 10 mg table t Discontinued 2.5 mg PO daily May 29, 2024 2:36pm June 02, 2024 12:02pm Start: 05-05-2024 End: 05-29-2024 take 5 mg by mouth once daily Amlodipine 10 mg tablet Discontinued 5 mg PO daily May 05, 2024 10:22am May 29, 2024 2:37pm Start: 04-21-2024 End: 05-05-2024 take 1 tablet by mouth once daily Amlodipine 10 mg tablet Discontinued 10 mg PO daily April 21, 2024 1:00am May 05, 2024 10:22am Start: 04-11-2024 End: 07-15-2024 take 1 tablet by mouth once daily Amlodipine 5 mg tablet Discontinued 5 mg PO daily June 02, 2024 12:00am June 10, 2024 2:51pm amoxicillin 875 mg oral tablet (1 source) Penicillin-class Antibacterial Start: 01-25-2024 End: 02-01-2024 take 1 tablet by mouth twice daily amoxicillin (AMOXIL) 875 mg tablet Indications: Acute otitis externa of left ear, unspecified type Take 1 tablet by mouth two times a day for 7 days. 14 tablet 01/25/2024 02/01/2024 Active ARIPiprazole 15 mg oral tablet (20 sources) Atypical Antipsychotic Start: 12-14-2020 ARIPiprazole 15 mg oral tablet Dose : 7.5 mg = 0.5 tab(s), Oral, qDay, 0 Refill(s) Start Date: 12/14/20 Status: Ordered Start: 04-05-2017 End: 10-26-2023 take 7.5 mg by mouth once daily Aripiprazole (Abilify) 15 MG tablet Discontinued 7.5 mg PO DAILY April 05, 2017 1:00am October 03, 2022 8:42am Comment on above: Take 7.5 mg by mouth once daily. 1.6 ml ARIPiprazole lauroxil 276 mg/ml prefilled syringe (20 sources) Start: 09-26-2022 ARIPiprazole lauroxil ER (ARISTADA) 441 mg/1.6 mL injection Inject 441 mg intramuscularly every 4 weeks. 09/26/2022 Active Start: 09-26-2022 Aripiprazole L auroxil (Aristada) 441 mg/1.6 mL suspension,extended rel syring Active 441 mg IM .December 18, 2022 12:00am 441 mg intramuscularly Q28D; Start: 09-26-2022 Aristada 441 M G/1.6ML injection Inject 441 mg into the shoulder, thigh, or buttocks 1 (one) time. 09/26/2022 Active atogepant (QULIPTA) 60 mg tablet (4 sources) Start: 05-20-2024 take 1 tablet by mouth once daily atogepant (QULIPTA) 60 mg tablet Take 60 mg by mouth once daily. 05/20/2024 Active atropine sulfate 0.025 mg / diphenoxylate hydrochloride 2.5 mg oral tablet (12 sources) Anticholinergic, Cholinergic Muscarinic Antagonist, Antidiarrheal Start: 10-29-2023 Diphenoxylate-Atropi ne (Lomotil) 2.5-0.025 mg tablet Active 1 {tbl} PO TWICE A DAY as needed for diarrhea October 29, 2023 12:00am control (3 sources) Start: 07-08-2024 control Active PO July 08, 2024 12:00am cholecalciferol 0.025 mg oral tablet (20 sources) Vitamin D Start: 01-14-2024 take 1 tablet by mouth once daily cholecalciferol (VITAMIN D3) 1,000 unit tab tablet Take 1,000 Units by mouth once daily. 01/14/2024 Active Start: 12-18-2022 take 1 tablet by vaughn once daily Cholecalciferol (Vitamin D3) (Vitamin D3) 25 mcg (1,000 unit) tablet Active 25 ug PO DAILY December 18, 2022 12:00am Start: 01-28-2020 End: 01-24-2024 take 1 capsule by mouth every week cholecalciferol, Vitamin D3, (VITAMIN D3) 1,250 mcg (50,000 unit) cap capsule Take 1 capsule by mouth one time a week. 01/28/2020 01/24/2024 Discontinued (Course of therapy completed) Comment on above: Take 1 capsule by [facility] one time a week. dicyclomine hydrochloride 20 mg oral tablet (20 sources) Anticholinergic Start: 05-09-19 take 1 tablet by mouth every eight hours as needed dicyclomine (BENTYL) 20 mg tablet Take 20 mg by mouth three times a day as needed. 05/08/2024 Active Start: 09-24-2023 End: 10-10-2023 take 2 capsules by mouth every six hours as needed Dicyclomine 10 mg capsule Discontinued 20 mg PO EVERY 6 HOURS NEEDED as needed for abdominal discomfort September 24, 2023 2:26am October 10, 2023 1:31pm Start: 08-11-2022 End: 10-03-2022 take 1 capsule by mouth twice daily as needed for pain Dicyclomine 10 mg capsule Discontinued 10 mg PO TWICE A DAY as needed for abdominal pain August 11, 2022 12:00am October 03, 2022 8:41am Start: 05-14-2016 End: 05-25-2016 take 2 capsules by mouth three times daily before mealtime Dicyclomine 10 MG capsule Discontinued 20 mg PO THREE TIMES DAILY BEFORE MEALS May 14, 2016 12:00am May 25, 2016 10:01am Start: 05-14-2016 End: 05-25-2016 take 20 mg by mouth three times daily before mealtime Dicyclomine Discontinued 20 MG PO THREE TIMES DAILY BEFORE MEALS May 14, 2016 12:00am May 25, 2016 10:01am divalproex sodium 500 mg oral delayed release tablet (1 source) Start: 12-14-2020 divalproex sod ium 500 mg oral delayed release tablet Dose : 500 mg = 1 tab(s), Oral, Daily, 0 Refill(s) Start Date: 12/14/20 Status: Ordered eluxadoline 75 mg oral tablet (1 source) mu-Opioid Receptor Agonist Start: 05-29-2016 Viberzi 75 mg oral tablet Dose : 75 mg = 1 tab(s), Oral, BID, 0 Refill(s) Start Date: 05/29/16 Status: Ordered Ethinyl Estradiol / norgestimate (20 sources) Progestin, Estrogen Start: 06-27-2024 take 1 tablet by mouth once daily MONO-LINYAH 0.25-0.035 mg tablet Indications: PCOS (polycystic ovarian syndrome) , Obesity, Class III, BMI 40-49.9 (morbid obesity) (HCC) TAKE 1 TABLET BY MOUTH DAILY 28 tablet 2 06/27/2024 Active Start: 06-27-2024 take 1 tablet by vaughn th once daily MONO-LINYAH 0.25-0.035 mg tablet Indications: PCOS (polycystic ovarian syndrome) , Obesity, Class III, BMI 40-49.9 (morbid obesity) TAKE 1 TABLET BY MOUTH DAILY 28 tablet 2 06/27/2024 Active Start: 01-08-2024 End: 06-27-2024 take 1 tablet by mouth once daily norgestimate 0.25 mg-ethinyl estradiol 35 mcg (SPRINTEC) 0.25-35 mg-mcg per tablet Indications: PCOS (polycystic ovarian syndrome) , Obesity, Class III, BMI 40-49.9 (morbid obesity) Take 1 tablet by mouth once daily. 90 tablet 1 01/08/2024 06/27/2024 Discontinued Start: 01-08-2024 take 1 tablet by vaughn th once daily norgestimate 0.25 mg-ethinyl estradiol 35 mcg (SPRINTEC) 0.25-35 mg-mcg per tablet Indications: PCOS (polycystic ovarian syndrome) , Obesity, Class III, BMI 40-49.9 (morbid obesity) (HCC) Take 1 tablet by mouth once daily. 90 tablet 1 01/08/2024 Active Start: 12-09-2020 End: 01-03-2021 Norgestimate-Ethinyl Estradi ol 0.25-35 mg-mcg tablet Discontinued 1 {tbl} PO DAILY December 09, 2020 10:08am January 03, 2021 9:50am Start: 12-09-2020 End: 01-03-2021 take 1 tablet by mouth once daily Norgestimate-Ethinyl Estradiol Discontinued 1 TABLET PO DAILY December 09, 2020 9:08am January 03, 2021 8:50am Start: 12-09-2020 End: 01-03-2021 take 1 tablet by mouth once daily Norgestimate-Ethinyl Estradiol Discontinued 1 TABLET PO DAILY December 09, 2020 10:08am January 03, 2021 9:50am Start: 05-17-2020 End: 10-26-2023 take 1 tablet by mouth once daily SPRINTEC 0.25-35 mg-mcg per tablet Take 1 tablet by mouth once daily. 05/17/2020 10/26/2023 Discontinued Start: 05-17-2020 take 1 tablet by vaughn th once daily SPRINTEC 0.25-35 mg-mcg per tablet Take 1 tablet by mouth once daily. 0 05/17/2020 Active Start: 01-07-2019 End: 12-09-2020 take 1 tablet by mouth once daily Norgestimate-Ethinyl Estradiol Discontinued 1 TABLET PO DAILY January 07, 2019 12:57pm December 09, 2020 10:09am Start: 01-07-2019 End: 12-09-2020 Norgestimate-Ethinyl Estradi ol 1 TABLET tablet Discontinued 1 {tbl} PO DAILY January 07, 2019 1:00am December 09, 2020 10:09am Start: 01-07-2019 End: 12-09-2020 take 1 tablet by mouth once daily Norgestimate-Ethinyl Estradiol Discontinued 1 TABLET PO DAILY January 07, 2019 12:00am December 09, 2020 9:09am Start: 01-07-2019 End: 12-09-2020 take 1 tablet by mouth once daily Norgestimate-Ethinyl Estradiol Discontinued 1 TABLET PO DAILY January 07, 2019 1:00am December 09, 2020 10:09am Comment on above: Take 1 tablet by vaughn th once daily. ferrous sulfate 325 mg oral tablet (20 sources) Start: take 1 tablet by mouth every other day ferrous sulfate 325 mg (65 mg iron) tablet Take 325 mg by mouth every other day. 05/29/2016 Active Comment on above: Take 325 mg by mouth . 1.5 ml fremanezumab-vfrm 150 mg/ml prefilled syringe (20 sources) Start: End: inject 1.5 mL by subcutaneous injection every 30 days fremanezumab (Ajovy) 225 MG/1.5ML prefilled syringe Indications: Chronic migraine without aura, intractable, without status migrainosus (CMS/HCC) Inject 1.5 mL (225 mg) under the skin every 30 (thirty) days 1.5 mL 5 12/31/2023 06/28/2024 Active Start: 02-23-2023 End: 07-15-2024 inject 1.5 mL by subcutaneous injection every month AJOVY SYRINGE 225 mg/1.5 mL syringe INJECT 1.5ML (1 SYRINGE) SUBCUTANEOUSLY EVERY MONTH 02/23/2023 07/15/2024 Discontinued Start: 10-03-2022 End: 05-29-2024 Fremanezumab-Vfrm (Ajovy Autoinjector) 225 mg/1.5 mL auto-injector Discontinued 225 mg SC EVERY MONTH October 03, 2022 12:00am May 29, 2024 2:50pm hydrocortisone 10 mg/ml / neomycin 3.5 mg/ml / polymyxin b [id number] unt/ml otic suspension (1 source) Aminoglycoside Antibacterial, Polymyxin-class Antibacterial, Corticosteroid Start: 01-25-2024 End: 01-30-2024 zpooprpq-pdqamcmjl-dtzywafxm isone (CORTISPORIN) 3.5-10,000-1 mg/mL-unit/mL-% otic suspension Indications: Acute otitis media, left Use 3 Drops in the left ear four times daily for 5 days. 10 mL 01/25/2024 01/30/2024 Active hyoscyamine sulfate 0.125 mg oral tablet (17 sources) Start: 10-10-2023 End: 01-24-2024 Hyoscyamine Sulfate 0.125 mg tablet Active 0.125 mg PO 2 to 4 times per day as needed for dyspepsia October 10, 2023 12:00am imipramine hydrochloride 25 mg oral tablet (20 sources) Tricyclic Antidepressant Start: 12-18-2022 take 1 tablet by mouth once daily at bedtime imipramine HCl (TOFRANIL) 25 mg tablet Take 25 mg by mouth daily at bedtime. 12/18/2022 Active [place] (1 source) Start: 12-14-2020 lithium 300 mg oral capsule Dose : 300 mg = 1 cap(s), Oral, BID, 0 Refill(s) Start Date: 12/14/20 Status: Ordered lithium carbonate 600 mg oral capsule (20 sources) Start: 01-24-2022 take 1 capsule by mouth at bedtime [place] Carbonate 600 mg Capsule Active 600 mg PO AT BEDTIME January 24, 2022 1:00am Start: 01-24-2022 End: 12-12-2021 take 600 mg by mouth at bedtime [place] Carbonate Acti ve 600 MG PO AT BEDTIME January 24, 2022 1:00am Start: 01-24-2022 take 600 mg by mouth at bedtim e [place] Carbon[place] Active 600 MG PO AT BEDTIME January 24, 2022 12:00am Start: 04-05-2017 take 1 capsule by mo uth once daily at bedtime lithium carbonate 600 mg capsule Take 600 mg by mouth daily at bedtime. 04/05/2017 Active Start: 04-05-2017 take 1 capsule by mo uth once daily after breakfast lithium carbonate (ESKALITH) 300 mg capsule Take 300 mg by mouth daily after breakfast. 05/03/2020 Active Start: 04-05-2017 take 1 capsule by mo uth twice daily lithium carbonate (ESKALITH) 300 mg capsule Take 300 mg by mouth twice daily. 0 05/03/2020 Active Comment on above: Take 600 mg by mouth twice daily. Take 300 mg by mouth twice daily. mecobalamin (3 sources) Start: 03-20-2023 take 1000 ug by mouth once daily Mecobalamin (Vitamin B12) Active 1000 MCG PO DAILY March 20, 2023 1:00am allow to dissolve in mouth OR may chew lightly before swallowing Start: 03-20-2023 take 1000 ug by mout h once daily Mecobalamin (Vitamin B12) Active 1000 MCG PO DAILY March 20, 2023 12:00am allow to dissolve in mouth OR may chew lightly before swallowing Mecobalamin (Vitamin B12) 1,000 mcg lozenge (12 sources) Start: 03-20-2023 take 1000 ug by mouth once daily Mecobalamin (Vitamin B12) 1,000 mcg lozenge Active 1000 ug PO DAILY March 20, 2023 1:00am allow to dissolve in mouth OR may chew lightly before swallowing metoclopramide 10 mg oral tablet (20 sources) Dopamine-2 Receptor Antagonist Start: 05-08-2024 take 1 tablet by mouth every six hours as needed for nausea and vomiting Metoclopramide Hcl (Reglan) 10 mg tablet Active 10 mg PO EVERY 6 HOURS as needed for nausea and vomiting May 08, 2024 12:00am Start: 03-16-2022 End: 04-22-2024 take 5 mg by mouth twice daily Metoclopramide Hcl (Reg aydee) 10 mg tablet Discontinued 5 mg PO TWICE A DAY May 28, 2023 10:28am April 22, 2024 10:56am Start: 09-03-2021 End: 03-16-2022 take 1 tablet by mouth every eight hours as needed for nausea and vomiting Metoclopramide Hcl (Reglan) 10 mg tablet Discontinued 10 mg PO EVERY 8 HOURS NEEDED as needed for nausea and vomiting September 03, 2021 1:30pm March 16, 2022 2:48pm take 5 mg by mouth f our times daily metoclopramide HCl (REGLAN) 10 mg tablet Take 5 mg by mouth four times daily. Active [facility] [place] (7 sources) Start: 05-29-2024 [facility] 0 .Route 1 May 29, 2024 12:00am As directed omeprazole 40 mg delayed release oral capsule (17 sources) Proton Pump Inhibitor Start: 04-05-2017 take 40 mg by mouth once daily Omeprazole Active 40 MG PO DAILY April 05, 2017 12:00am End: 12-12-2021 take 1 capsule by mouth once daily omeprazole (PRILOSEC) 10 mg capsule Take 10 mg by mouth once daily. 12/12/2021 Discontinued Comment on above: Take 10 mg by mouth once daily. pantoprazole 40 mg delayed release oral tablet (20 sources) Proton Pump Inhibitor Start: take 1 tablet by mouth once daily Pantoprazole 40 mg tablet,delayed release (DR/EC) Active 40 mg PO DAILY June 03, 2023 12:00am Start: 08-04-2022 End: 04-18-2023 take 1 tablet by mouth at bedtime Pantoprazole 40 mg Tablet,Delayed Release (Dr/Ec) Discontinued 40 mg PO AT BEDTIME August 04, 2022 12:00am April 18, 2023 8:57am Start: 05-17-2020 End: 01-08-2024 take 2 tablets by mouth once daily pantoprazole DR (PROTONIX) 20 mg tablet Take 40 mg by mouth once daily. 05/17/2020 01/08/2024 Discontinued Start: 05-17-2020 take 1 tablet by vaughn th once daily pantoprazole DR (PROTONIX) 20 mg tablet Take 1 tablet by mouth once daily. 0 05/17/2020 Active Comment on above: Take 1 tablet by vaughn th once daily. penicillin v potassium 500 mg oral tablet (1 source) Start: 2 End: 2 take 1 tablet by mouth four times daily penicillin V potassium (V-CILLIN, VEETIDS) 500 mg tablet Indications: Dental infection Take 1 tablet by mouth four times daily for 5 days. 20 tablet 0 12/12/2021 12/17/2021 Active Comment on above: Take 1 tablet by vaughn th four times daily for 5 days. polyethylene glycol 3350 02490 mg powder for oral solution (20 sources) Osmotic Laxative Start: take 17 g by mouth once daily polyethylene glycol 3350 17 gram/dose powder Take 17 g by mouth once daily. 10/17/2023 Active Start: 10-17-2023 polyethylene g lycol 3350 17 gram/dose powder MIX 4 GRAMS WITH LIQUID AND DRINK ONCE DAILY 10/17/2023 Active Start: 10-17-2023 End: 10-17-2023 Polyethylene Glycol 3350 (Mi ralax) 17 gram/dose powder Active 4 g PO ONCE as needed for constipation October 17, 2023 12:00am simvastatin 20 mg oral tablet (20 sources) HMG-CoA Reductase Inhibitor Start: 04-14-2023 take 1 tablet by mouth once daily at bedtime simvastatin (ZOCOR) 20 mg tablet Take 20 mg by mouth daily at bedtime. 04/14/2023 Active 24 hr divalproex sodium 500 mg extended release oral tablet (9 sources) Mood Stabilizer, Anti-epileptic Agent Start: 12-05-2020 take 500 mg by mouth once daily Divalproex Active 500 MG PO DAILY December 05, 2020 12:00am vitamin b12 1 mg sublingual tablet (20 sources) Vitamin B12 Start: 05-12-2025 Cyanocobalamin 1,000 mcg subl Dissolve 1 tablet under the tongue once daily. 06/30/2024 Active Start: 07-24-2022 End: 05-16-2024 Cyanocobalamin 1,000 mcg sub l Dissolve 1,000 mcg under the tongue once daily. 07/24/2022 05/16/2024 Discontinued (Discontinued by Patient) Start: 07-24-2022 take 1 tablet by vaughn th in the morning Cyanocobalamin (Vitamin B-12) 1000 MCG sublingual tablet Take 1,000 mcg by mouth in the morning. 07/24/2022 Active Start: 12-14-2020 End: 12-12-2021 Vitamin B12 1000 mcg oral ta blet Dose : 1,000 mcg = 1 tab(s), Oral, Daily, 0 Refill(s) Start Date: 12/14/20 Status: Ordered Comment on above: Take by mouth. Completed/Discontinued Medications Medication Drug Class(es) Dates Sig (Normalized) Sig (Original) amitriptyline hydrochloride 25 mg oral tablet (20 sources) Tricyclic Antidepressant Start: 12-12-2021 End: 10-26-2023 take 1 tablet by mouth at bedtime Amitriptyline 25 mg tablet Discontinued 25 mg PO AT BEDTIME January 24, 2022 1:00am October 03, 2022 8:42am Control (20 sources) Start: 11-11-2015 End: 12-09-2020 Control Discontinued 1 TABLET DAILY November 11, 2015 9:11pm December 09, 2020 10:08am Start: 11-11-2015 End: 12-09-2020 Control Discontinued 1 {tbl} DAILY November 11, 2015 12:00am December 09, 2020 10:08am Start: 11-11-2015 End: 12-09-2020 Control Discontinued 1 TABLET DAILY November 10, 2015 11:00pm December 09, 2020 9:08am Start: 11-11-2015 End: 12-09-2020 Control Discontinued 1 TABLET DAILY November 11, 2015 12:00am December 09, 2020 10:08am budesonide 3 mg delayed release oral capsule (20 sources) Corticosteroid Start: 10-10-2022 End: 12-31-2023 budesonide EC (Entocort EC) 3 MG 24 hr capsule 10/10/2022 12/31/2023 Discontinued Start: 10-10-2022 End: 05-28-2023 take 1 capsule by mouth once daily Budesonide 3 mg capsule,delayed,extend.release Discontinued 3 mg PO DAILY February 21, 2023 10:29am May 28, 2023 10:27am Start: 10-10-2022 End: 02-21-2023 take 9 mg by mouth once daily Budesonide Active 9 MG PO DAILY December 27, 2022 3:38pm cetirizine hydrochloride 10 mg oral tablet (2 sources) Histamine-1 Receptor Antagonist Start: 02-12-2020 End: 12-12-2021 take 1 tablet by mouth once daily cetirizine (ZYRTEC) 10 mg tablet Take 10 mg by mouth once daily. 0 02/12/2020 12/12/2021 Discontinued Comment on above: Take 10 mg by mouth once daily. ciprofloxacin 500 mg oral tablet (20 sources) Quinolone Antimicrobial Start: 01-24-2022 End: 04-04-2022 take 1 tablet by mouth every twelve hours Ciprofloxacin Hcl (Cipro) 500 mg tablet Discontinued 500 mg PO Q12H January 24, 2022 1:00am April 04, 2022 11:01am colestipol hydrochloride 1000 mg oral tablet (2 sources) Bile Acid Sequestrant End: 12-12-2021 take 1 tablet by mouth every twelve hours as needed colestipol (COLESTID) 1 gram tablet Take 1 tablet by mouth twice daily as needed. 0 12/12/2021 Discontinued Comment on above: Take 1 tablet by vaughn twice daily as needed. COMPOUNDED PRESCRIPTION (3 sources) End: 12-12-2021 COMPOUNDED PRESCRIPTION 1 tablet once daily. control 12/12/2021 Discontinued End: 12-12-2021 COMPOUNDED PRESCRIPTION 1 ta blet once daily. control 0 12/12/2021 Discontinued COMPOUNDED PRESC RIPTION 1 tablet once daily. control 0 Active Comment on above: 1 tablet once daily. control famotidine 40 mg oral tablet (20 sources) Histamine-2 Receptor Antagonist Start: End: take 1 tablet by mouth twice daily Famotidine 40 mg tablet Discontinued 40 mg PO TWICE A DAY April 18, 2023 8:53am September 23, 2023 10:33pm fluconazole 150 mg oral tablet (12 sources) Azole Antifungal Start: End: take 1 tablet by mouth once daily Fluconazole 150 mg tablet Discontinued 150 mg PO DAILY July 27, 2023 12:00am September 23, 2023 10:33pm administer on day 1 of therapy FREESTYLE VIN 2 SENSOR kit (2 sources) Start: End: FREESTYLE VIN 2 SENSOR kit 1 Each every 2 weeks. 03/25/2024 05/16/2024 Discontinued (Other) Start: 03-25-2024 FREESTYLE LIBR E 2 SENSOR kit 1 Each every 2 weeks. 03/25/2024 Active hydrocortisone 10 mg/ml topical cream (20 sources) Corticosteroid Start: 10-03-2022 End: 12-18-2022 Hydrocortisone 1 % cream Discontinued 1 NMA TOPICAL THREE TIMES A DAY as needed for itching 28.4 October 03, 2022 12:00am December 18, 2022 4:33pm hydrOXYzine pamoate 25 mg oral capsule (20 sources) Antihistamine Start: 12-12-2021 End: 01-24-2024 take 1 capsule by mouth three times daily Hydroxyzine Pamoate 25 mg capsule Discontinued 25 mg PO THREE TIMES A DAY January 24, 2022 1:00am December 09, 2022 8:08pm lactulose 667 mg/ml oral solution (20 sources) Osmotic Laxative Start: 09-28-2023 End: 07-15-2024 take 45 mL by mouth twice daily as needed for constipation lactulose 10 gram/15 mL solution TAKE 45 ML BY MOUTH TWICE DAILY NEEDED FOR CONSTIPATION. 09/28/2023 07/15/2024 Discontinued Start: 09-28-2023 take 30 g by mouth t wice daily as needed for constipation Lactulose 10 gram/15 mL solution Active 30 g PO TWICE A DAY as needed for constipation 473 September 28, 2023 12:00am Ktocpu-Hdjsmbsk-Skdnprx (Zenpep) 40,000-126,000- 168,000 unit capsule,delayed release(DR/EC) (20 sources) Start: 03-16-2022 End: 06-06-2022 take 3 capsules by mouth three times daily at mealtime Dwglso-Yxfhacet-Mmcakpj (Zenpep) 40,000-126,000- 168,000 unit capsule,delayed release(DR/EC) Discontinued 3 NMA PO THREE TIMES A DAY 189 March 16, 2022 1:00am June 06, 2022 11:02am take three capsules with meals Start: 03-16-2022 End: 06-06-2022 take 3 capsules by mouth three times daily at mealtime Mmpomh-Fjrafzfs-Mbrwclk (Zenpep) 40,000-126,000- 168,000 unit capsule,delayed release(DR/EC) Discontinued 3 CAP PO THREE TIMES A DAY 189 March 16, 2022 12:00am June 06, 2022 10:02am take three capsules with meals Start: 03-16-2022 End: 06-06-2022 take 3 capsules by mouth three times daily at mealtime Opgtku-Pyykmbmj-Imhnsfd (Zenpep) 40,000-126,000- 168,000 unit capsule,delayed release(DR/EC) Discontinued 3 CAP PO THREE TIMES A DAY 189 March 16, 2022 1:00am June 06, 2022 11:02am take three capsules with meals Start: 03-16-2022 take 3 capsules by m outh three times daily at mealtime Ulqjlk-Oikhpszt-Xbiyvbs (Zenpep) 40,000-126,000- 168,000 unit capsule,delayed release(DR/EC) Active 3 CAP PO THREE TIMES A DAY 189 March 16, 2022 12:00am take three capsules with meals losartan potassium 50 mg oral tablet (20 sources) Angiotensin 2 Receptor Radha Start: 12-09-2020 End: 12-31-2023 take 1 tablet by mouth once daily Losartan 50 mg tablet Discontinued 50 mg PO DAILY February 28, 2022 1:00am December 20, 2022 11:29am meclizine hydrochloride 12.5 mg oral tablet (2 sources) Antiemetic Start: 02-12-2020 End: 12-12-2021 meclizine (ANTIVERT) 12.5 mg tab Take 1 tablet by mouth as needed. 0 02/12/2020 12/12/2021 Discontinued Comment on above: Take 1 tablet by vaughn as needed. medroxyPROGESTERone acetate 10 mg oral tablet (20 sources) Progestin Start: 10-17-2023 End: 07-24-2024 Medroxyprogesterone 10 mg tablet Discontinued 10 mg PO .COMPLEX October 17, 2023 12:00am July 24, 2024 1:45pm 10 mg orally first 10 days each month; T Start: 10-03-2022 End: 12-18-2022 Medroxyprogesterone 10 mg ta blet Discontinued 10 mg PO daily 11 28October 03, 2022 12:00am December 18, 2022 4:33pm Take daily X 10 days to induce menses. Repeat every 3 months if no spontaneous menses Start: 03-17-2022 Medroxyprogest erone Active 5 MG PO DAILY March 17, 2022 12:00am take if no menses x 90 days for 10 days and repeat every 90 days as needed Start: 09-28-2021 Medroxyprogest erone Active 10 MG PO daily 11 28September 28, 2021 12:00am Take daily for 10 days if no spontaneous menses every 3 months metoprolol tartrate 50 mg oral tablet (20 sources) beta-Adrenergic Radha Start: 04-23-2024 End: 06-23-2024 take 1 tablet by mouth twice daily Metoprolol Tartrate 50 mg tablet Discontinued 50 mg PO TWICE A DAY 180 April 23, 2024 3:46pm June 23, 2024 4:57pm Start: 10-19-2023 End: 07-21-2024 metoprolol tartrate, short a cting, (LOPRESSOR) 50 mg tablet Take 100 mg by mouth two times a day. 10/19/2023 Active Start: 10-19-2023 take 1 tablet by vaughn every twelve hours metoprolol tartrate, short acting, (LOPRESSOR) 50 mg tablet Take 1 tablet by mouth every 12 hours. 10/19/2023 Active Start: 10-19-2023 End: 04-08-2024 take 1 tablet by mouth twice daily Metoprolol Tartrate 50 mg tablet Discontinued 50 mg PO TWICE A DAY April 03, 2024 4:32pm April 08, 2024 11:13am Start: 08-13-2023 End: 10-19-2023 take 1 tablet by mouth once daily Metoprolol Succinate 25 mg tablet extended release 24 hr Discontinued 25 mg PO DAILY August 13, 2023 12:00am October 19, 2023 9:53am Start: 07-24-2020 End: 12-09-2020 take 1 tablet by mouth twice daily Metoprolol Tartrate 25 mg tablet Discontinued 25 mg PO TWICE A DAY July 24, 2020 12:00am December 09, 2020 10:07am metroNIDAZOLE 500 mg oral tablet (20 sources) Nitroimidazole Antimicrobial Start: 09-24-2023 End: 10-19-2023 take 1 tablet by mouth twice daily Metronidazole 500 mg tablet Discontinued 500 mg PO TWICE A DAY September 24, 2023 12:00am October 19, 2023 9:18am Start: 01-24-2022 End: 04-04-2022 take 1 tablet by mouth every eight hours Metronidazole 500 mg tablet Discontinued 500 mg PO Q8H 18 12January 24, 2022 1:00am April 04, 2022 11:02am naproxen 500 mg oral tablet (20 sources) Nonsteroidal Anti-inflammatory Drug Start: 01-03-2021 End: 04-04-2022 take 1 tablet by mouth every twelve hours at mealtime Naproxen 500 mg tablet Discontinued 500 mg PO .COMPLEX January 03, 2021 1:00am April 04, 2022 11:02am 500 mg PO Q12 hr first 3 days of menses; administer with food or milk Start: 03-25-2019 End: 01-03-2021 take 1 tablet by mouth twice daily as needed Naproxen 500 mg tablet Discontinued 500 mg PO TWICE A DAY as needed December 09, 2020 10:08am January 03, 2021 9:51am nitrofurantoin, macrocrystals 25 mg / nitrofurantoin, monohydrate 75 mg oral capsule (20 sources) Nitrofuran Antibacterial Start: 10-03-2022 End: 10-10-2022 take 1 capsule by mouth twice daily at mealtime Nitrofurantoin Monohyd/M-Cryst (Macrobid) 100 mg capsule Discontinued 100 mg PO TWICE A DAY 01 09October 03, 2022 12:00am October 09, 2022 12:00am October 10, 2022 12:03am must administer with a meal/food NORETHINDRONE-ETHINY L ESTRAD (ORTHO-NOVUM , 28, ORAL) (3 sources) End: 12-12-2021 NORETHINDRONE-ETHIN YL ESTRAD (ORTHO-NOVUM , 28, ORAL) Take by mouth. 12/12/2021 Discontinued End: 12-12-2021 NORETHINDRONE-ETHINYL ESTRAD (ORTHO-NOVUM , 28, ORAL) Take by mouth. 0 12/12/2021 Discontinued NORETHINDRONE-ET HINYL ESTRAD (ORTHO-NOVUM , , ORAL) Take by mouth. 0 Active Comment on above: Take by mouth. promethazine hydrochloride 25 mg oral tablet (20 sources) Phenothiazine Start: 3 End: 3 take 1 tablet by mouth three times daily as needed for nausea and vomiting Promethazine 25 mg tablet Discontinued 25 mg PO THREE TIMES A DAY as needed for nausea and vomiting August 15, 2022 12:00am October 03, 2022 8:40am On Hold: Order Completed Start: 01-18-2021 take 25 mg by mouth three times daily Promethazine Active 25 MG PO THREE TIMES A DAY January 18, 2021 12:00am Start: 01-07-2019 End: 12-12-2021 take 1 tablet by mouth every six hours as needed for nausea Promethazine 25 MG tablet Discontinued 25 mg PO EVERY 6 HOURS NEEDED as needed for Nausea January 07, 2019 1:00am January 03, 2021 9:51am Start: 05-30-2016 End: 06-02-2016 Phenergan 25 mg oral tablet Dose : 25 mg = 1 tab(s), PO, q6hr, PRN as needed for nausea/vomiting, # 12 tab(s), 0 Refill(s) Start Date: 05/30/16 Stop Date: 06/02/16 Status: Ordered Start: 05-30-2016 End: 06-02-2016 Phenergan 25 mg rectal suppo sitory Dose : 25 mg = 1 supp, AK, q6hr, PRN as needed for nausea/vomiting, # 12 supp, 0 Refill(s) Start Date: 05/30/16 Stop Date: 06/02/16 Status: Ordered Comment on above: Take 1 tablet by vaughn th every 6 hours as needed. propranolol hydrochloride 40 mg oral tablet (3 sources) beta-Adrenergic Radha Start: 10-31-19 End: 12-13-19 take 1 tablet by mouth twice daily propranolol (INDERAL) 40 mg tablet Take 40 mg by mouth twice daily. 10/31/2019 12/12/2021 Discontinued Comment on above: Take 40 mg by mouth twice daily. rizatriptan 10 mg oral tablet (20 sources) Serotonin-1b and Serotonin-1d Receptor Agonist Start: 06-04-19 End: 07-16-19 Rizatriptan 10 mg tablet Discontinued mg PO June 26, 2023 12:00am September 23, 2023 10:33pm spironolactone 50 mg oral tablet (20 sources) Aldosterone Antagonist Start: 01-25-20 End: 05-16-19 take 1 tablet by mouth twice daily Spironolactone Discontinued 0 .ROUTE .COMPLEX 56 October 06, 2022 10:10am November 01, 2022 3:18pm TAKE 1 TABLET BY MOUTH TWICE A DAY Start: 08-08-2021 End: 01-24-2024 take 1 tablet by mouth twice daily Spironolactone 50 mg tablet Discontinued 0 .ROUTE .COMPLEX 60 October 03, 2023 1:43pm October 17, 2023 1:06pm TAKE 1 TABLET BY MOUTH TWICE A DAY Start: 08-08-2021 End: 12-31-2023 Spironolactone 50 mg tablet Discontinued 25 mg PO TWICE A DAY January 24, 2022 1:00am August 04, 2022 3:02pm Start: 08-08-2021 End: 09-28-2021 take 1 tablet by mouth once daily Spironolactone 50 mg tablet Discontinued 0 .ROUTE .COMPLEX September 09, 2021 4:05pm September 28, 2021 9:26am TAKE 1 TABLET BY MOUTH DAILY Comment on above: Take by mouth. sucralfate 1000 mg oral tablet (20 sources) Aluminum Complex Start: 10-03-2023 End: 01-24-2024 take 1 tablet by mouth every six hours as needed sucralfate (CARAFATE) 1 gram tablet Take 1 g by mouth four times a day as needed. 10/03/2023 01/24/2024 Discontinued (Course of therapy completed) Start: 10-03-2023 End: 10-19-2023 take 1 tablet by mouth once daily before mealtime Sucralfate 1 gram tablet Discontinued 1 g PO THREE TIMES A DAY October 17, 2023 12:00am October 19, 2023 9:19am 1 g orally Take on an empty stomach. Hour before meals-lunch and dinner; do not take within 2 hours before or after lithium Problems Active Problems Problem Classification Problem Date Documented Da te Episodic/Chronic Abdominal pain (14 sources) Left upper quadrant pain; Translations: [Left upper quadrant pain] Onset: 11-13-2023 10-04-2023 Episodic Anxiety disorders (9 sources) Anxiety; Translations: [Anxiety disorder, unspecified] Onset: 05-16-2024 05-16-2024 Chronic Conditions associated with dizziness or vertigo (2 sources) Dizziness; Translations: [Dizziness and giddiness] Episodic Diabetes mellitus with complications (20 sources) Hypoglycemia; Translations: [Type 2 diabetes mellitus with hypoglycemia without coma] Onset: 05-16-2024 11-23-2022 Chronic Diabetes mellitus without complication (20 sources) Diabetes mellitus; Translations: [Type 2 diabetes mellitus without complications] Onset: 03-20-2023 03-20-2023 Chronic Comment on above: NO MEDS CURRENTLY/TO SEE ENDOCRINOLOGY Disorders of lipid metabolism (20 sources) Hypercholesterolemia; Translations: [Pure hypercholesterolemia, unspecified] Onset: 08-01-2023 10-03-2022 Chronic Disorders of teeth and jaw (1 source) Infection of tooth; Translations: [Periapical abscess without sinus] Episodic Disorders usually diagnosed in infancy, childhood, or adolescence (20 sources) Autistic disorder; Translations: [Autistic disorder] 08-21-2016 Chronic Essential hypertension (20 sources) Hypertensive disorder; Translations: [Essential (primary) hypertension] Onset: 09-13-2022 Chronic Fracture of lower limb (20 sources) Fracture of fibula; Translations: [Unspecified fracture of shaft of left fibula, initial encounter for closed fracture] 02-21-2013 Episodic Headache; including migraine (20 sources) Refractory migraine without aura; Translations: [Migraine without aura, intractable, without status migrainosus] Onset: 08-21-2016 08-21-2016 Chronic Headache; including migraine (1 source) Headache; including migraine; Translations: [Headache, unspecified] Onset: 06-04-2024 Immunizations and screening for infectious disease (1 source) Contact with or exposure to other viral diseases; Translations: [Exposure to COVID-19 virus] Episodic Inflammatory diseases of female pelvic organs (2 sources) Acute vaginitis; Translations: [Vaginitis and vulvovaginitis, unspecified] 02-28-2022 Episodic Influenza (1 source) Influenza-like illness; Translations: [Influenza due to unidentified influenza virus with other respiratory manifestations] 04-14-2024 Episodic Malaise and fatigue (1 source) Fatigue; Translations: [Other fatigue] Episodic Menstrual disorders (20 sources) Dysmenorrhea; Translations: [Dysmenorrhea, unspecified] Onset: 10-17-2023 Chronic Comment on above: provera first 10 day s each month; labs and US:nl naproxen Miscellaneous mental health disorders (10 sources) Binge eating disorder; Translations: [Binge eating disorder, moderate] Onset: 05-16-2024 05-16-2024 Chronic Mood disorders (20 sources) Bipolar I disorder; Translations: [Bipolar disorder, unspecified] Onset: 05-20-2016 08-21-2016 Chronic Nausea and vomiting (20 sources) Nausea and vomiting; Translations: [Nausea with vomiting, unspecified] Onset: 05-16-2024 Episodic Noninfectious gastroenteritis (20 sources) Colitis; Translations: [Noninfective gastroenteritis and colitis, unspecified] 02-01-2022 Episodic Nonspecific chest pain (20 sources) Chest pain; Translations: [Chest pain, unspecified] Onset: 05-20-2024 01-23-2022 Episodic Other bone disease and musculoskeletal deformities (7 sources) Juvenile osteochondrosis of spine; 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, site unspecified] Onset: 01-31-2012 05-16-2024 Chronic Other connective tissue disease (1 source) Pain in left foot; Translations: [Pain in left foot] 01-07-2020 Episodic Other connective tissue disease (12 sources) Pain in right arm; Translations: [Pain in right arm] 12-05-2023 Episodic Other disorders of stomach and duodenum (14 sources) Gastroparesis; Translations: [Gastroparesis] Onset: 05-16-2024 06-06-2022 Episodic Other ear and sense organ disorders (1 source) Impacted cerumen in left ear; Translations: [Impacted cerumen, left ear] 09-13-2023 Episodic Other ear and sense organ disorders (1 source) Acute otitis externa of left ear; Translations: [Unspecified acute noninfective otitis externa, left ear] 01-25-2024 Episodic Other endocrine disorders (20 sources) Polycystic ovary syndrome; Translations: [Polycystic ovarian syndrome] Onset: 12-14-2020 Chronic Other endocrine disorders (2 sources) Polycystic ovarian syndrome; Translations: [PCOS (polycystic ovarian syndrome)] Onset: 12-05-2023 Chronic Other female genital disorders (20 sources) Abnormal uterine bleeding; Translations: [Abnormal uterine and vaginal bleeding, unspecified] Onset: 12-14-2020 Chronic Other gastrointestinal disorders (1 source) Irritable bowel syndrome with diarrhea; Translations: [Irritable bowel syndrome with diarrhea] 05-16-2024 Chronic Other gastrointestinal disorders (7 sources) Irritable bowel syndrome; Translations: [Irritable bowel syndrome without diarrhea] Onset: 11-26-2015 05-16-2024 Chronic Other gastrointestinal disorders (20 sources) Diarrhea; Translations: [Diarrhea, unspecified] 01-08-2019 Episodic Other gastrointestinal disorders (12 sources) Mass of abdominal cavity structure; Translations: [Intra-abdominal and pelvic swelling, mass and lump, unspecified site] 10-02-2023 Episodic Other injuries and conditions due to external causes (12 sources) Open wound; Translations: [Other injury of unspecified body region, initial encounter] 12-05-2023 Episodic Other liver diseases (20 sources) Steatosis of liver; Translations: [Fatty (change of) liver, not elsewhere classified] Onset: 02-09-2023 01-30-2023 Chronic Other liver diseases (6 sources) Fatty (change of) liver, not elsewhere classified; Translations: [Other chronic nonalcoholic liver disease] Onset: 05-16-2024 01-30-2023 Chronic Other nervous system disorders (12 sources) Neuropathy; Translations: [Polyneuropathy, unspecified] 12-05-2023 Chronic Other nervous system disorders (1 source) Loss of sense of smell; Translations: [Anosmia] Episodic Other nervous system disorders (20 sources) Paresthesia of right lower limb; Translations: [Paresthesia of skin] 10-13-2020 Episodic Other nervous system disorders (6 sources) Paresthesia; Translations: [Paresthesia of skin] 06-03-2024 Episodic Other non-traumatic joint disorders (20 sources) Pain in left knee; Translations: [Left knee pain] 08-24-2021 Episodic Other nutritional; endocrine; and metabolic disorders (20 sources) Insulin resistance; Translations: [Metabolic syndrome] 10-03-2022 Chronic Other nutritional; endocrine; and metabolic disorders (20 sources) Morbid obesity; Translations: [Morbid (severe) obesity due to excess calories] 11-23-2022 Chronic Other nutritional; endocrine; and metabolic disorders (15 sources) Obesity; Translations: [Obesity, unspecified] 03-20-2023 Chronic Other nutritional; endocrine; and metabolic disorders (3 sources) Obesity, unspecified; Translations: [Obesity, unspecified] 03-20-2023 Chronic Other nutritional; endocrine; and metabolic disorders (20 sources) Body mass index 40+ - severely obese; Translations: [Morbid (severe) obesity due to excess calories] Onset: 10-26-2023 10-26-2023 Chronic Other nutritional; endocrine; and metabolic disorders (3 sources) Morbid (severe) obesity due to excess calories; Translations: [Obesity, Class III, BMI 40-49.9 (morbid obesity) (HCC)] Onset: 10-17-2023 Chronic Other nutritional; endocrine; and metabolic disorders (1 source) Body mass index (BMI) 45.0-49.9, adult; Translations: [Body mass index [BMI] 45.0-49.9, adult] Onset: 10-17-2023 Chronic Other screening for suspected conditions (not mental disorders or infectious disease) (13 sources) CT of abdomen abnormal; Translations: [Abnormal findings on diagnostic imaging of other abdominal regions, including retroperitoneum] Onset: 08-13-2024 10-04-2023 Episodic Other skin disorders (6 sources) Hidradenitis suppurativa; Translations: [Hidradenitis] 10-03-2022 Episodic Other upper respiratory disease (1 source) Nasal congestion; Translations: [Nasal congestion] Episodic Other upper respiratory infections (3 sources) Upper respiratory infection; Translations: [Acute upper respiratory infection, unspecified] 01-24-2024 Episodic Otitis media and related conditions (1 source) Acute left otitis media; Translations: [Otitis media, unspecified, left ear] 01-25-2024 Episodic Peripheral and visceral atherosclerosis (1 source) Peripheral vascular disease, unspecified; Translations: [Peripheral vascular disease, unspecified] Onset: 06-25-2024 Chronic Regional enteritis and ulcerative colitis (20 sources) Crohn's disease; Translations: [Crohn's disease, unspecified, without complications] 08-29-2022 Chronic Residual codes; unclassified (1 source) Pain; Translations: [Pain, unspecified] 11-27-2023 Episodic Skin and subcutaneous tissue infections (20 sources) Cellulitis; Translations: [Cellulitis, unspecified] 12-18-2022 Episodic Sprains and strains (20 sources) Strain of muscle of chest wall; Translations: [Strain of muscle and tendon of front wall of thorax, initial encounter] 03-26-2019 Episodic Syncope (20 sources) Syncope; Translations: [Syncope and collapse] Onset: 05-29-2024 12-09-2022 Episodic Unclassified (2 sources) Binge eating disorder, moderate; Translations: [Binge eating disorder, moderate] Onset: 05-16-2024 Unclassified (1 source) Obesity, Class III, BMI 40-49.9 (morbid obesity) ([facility]); Translations: [Obesity, Class III, BMI 40-49.9 (morbid obesity) ([facility])] Onset: 10-26-2023 Unclassified (1 source) PCOS Onset: 07-15-2024 Viral infection (20 sources) Disease caused by 2019-nCoV; Translations: [COVID-19] 05-28-2020 Episodic Past or Other Problems Problem Classification Problem Date Documented Da te Episodic/Chronic Blindness and vision defects (20 sources) Diplopia; Translations: [Other subjective visual disturbances] Onset: 08-21-2016 08-21-2016 Episodic Cardiac dysrhythmias (20 sources) Palpitations; Translations: [Palpitations] Onset: 07-11-2023 05-16-2024 Episodic Diabetes mellitus without complication (7 sources) Prediabetes; Translations: [Prediabetes] Onset: 05-16-2024 Resolved: 05-16-2024 05-16-2024 Episodic Genitourinary symptoms and ill-defined conditions (1 source) Dysuria; Translations: [Dysuria] Onset: 03-07-2024 Episodic Headache; including migraine (20 sources) Headache; Translations: [Headache] Onset: 08-21-2016 08-21-2016 Episodic Nonmalignant breast conditions (13 sources) Abscess of breast; Translations: [Abscess of the breast and nipple] Onset: 02-22-2024 12-05-2023 Episodic Other aftercare (2 sources) Other superintendent terminal (current) drug therapy; Translations: [Other superintendent terminal (current) drug therapy] Onset: 12-05-2023 Episodic Other connective tissue disease (1 source) Pain in right arm; Translations: [Pain in right arm] Onset: 12-18-2023 Episodic Other disorders of stomach and duodenum (20 sources) Gastroparesis syndrome; Translations: [Gastroparesis] Onset: 05-16-2024 06-06-2022 Episodic Other gastrointestinal disorders (1 source) Diarrhea, unspecified; Translations: [Diarrhea, unspecified] Onset: 05-02-2024 Episodic Other skin disorders (20 sources) Hirsutism; Translations: [Hirsutism] Onset: 10-17-2023 08-08-2021 Episodic Comment on above: spirolactone Other skin disorders (18 sources) Hirsutism; Translations: [Hirsutism] Onset: 10-17-2023 Episodic Other skin disorders (7 sources) Hidradenitis; Translations: [Hidradenitis suppurativa] Onset: 05-16-2024 05-16-2024 Episodic Other skin disorders (1 source) Localized swelling, mass and lump, left upper limb; Translations: [Localized swelling, mass and lump, left upper limb] Onset: 12-13-2023 Episodic Screening and history of mental health and substance abuse codes (8 sources) H/O: psychiatric disorder; Translations: [Personal history of other mental and behavioral disorders] Onset: 05-16-2024 05-16-2024 Episodic Suicide and intentional self-inflicted injury (20 sources) Suicidal thoughts; Translations: [Suicidal ideations] Onset: 06-19-2016 04-07-2023 Episodic Results Test Name Value Interpretation Reference Range Facility [facility] -------- DOCMARION LORENZ ([id number]) 1995 F Date Time Provider Department 08/28/24 ARSENIO SOLORIO [facility] During your visit today, we recorded the following information about you: Arsenio Soloroi LSW 08/28/2024 3:51 PM Signed Endocrinology AND Metabolism Social Work Progress Note Provider Action / FYI N/A Marion Crystal Brenda [phone] Type of Contact: telephone Endocrine BLACK OFF WORKER Referral Reason: [id number]/Exercise Noel Qualification Contact Made?: No- 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 Note/Intervention: n/a [facility] referral placed: n/a Signature: KANU Pathak Patient Name: Marion Mistryramesh Date: 08/28/2024 Time: 3:50 PM Pager/Contact #: [phone] During this patient contact I spent approximately 5 minutes in reviewing the patient's chart and counseling regarding community resources and coordinating care. Allergies As of Date: 08/28/2024 Noted Allergy Reaction ONDANSETRON 07/14/2016 10 - Anaphylaxis 14 - Other: See Comments Comments: Tongue swelling BROCCOLI 04/08/2023 6 - Diarrhea CAULIFLOWER 04/08/2023 6 - Diarrhea ANTI DEPRESSANTS (TRICYCLIC ANTID*08/21/2016 14 - Other: See Comments Comments: Patient states she must take anti-depressants with a mood stabilizer or else she becomes suicidal. ESCITALOPRAM 07/14/2016 14 - Other: See Comments Comments: Suicidal ideation suicidal Suicidal thoughts GLUTEN FLOUR 08/21/2016 6 - Diarrhea LACTASE 09/12/2011 6 - Diarrhea 8 - GI Upset Comments: Eats dairy products, just limit amount LEXAPRO (ESCITALOPRAM OXALATE) 01/13/2019 1 - Mental Status Change SEASONAL ALLERGIES 12/02/2012 3 - Cough TOMATO 04/08/2023 8 - GI Upset ZOFRAN (PF) IN DEXTROSE (ONDANSET*08/21/2016 7 - Swelling 8 - GI Upset METFORMIN 02/28/2022 6 - Diarrhea 8 - GI Upset POLLEN EXTRACTS 12/09/2020 4 - Hives 5 - Intolerance Date Reviewed: 07/15/2024 Reviewed by: Amy Bragg RN - Fully Assessed Reason for Visit: Ambulatory Social Work [4191] Prescriptions as of 08/28/2024 - amLODIPine (NORVASC) 2.5 mg tablet Take 2.5 mg by mouth two times a day. - Cyanocobalamin 1,000 mcg subl Dissolve 1 tablet under the tongue once daily. - dicyclomine (BENTYL) 20 mg tablet Take 20 mg by mouth three times a day as needed. - atogepant (QULIPTA) 60 mg tablet Take 60 mg by mouth once daily. - MONO-LINYAH 0.25-0.035 mg tablet TAKE 1 TABLET BY MOUTH DAILY - cholecalciferol (VITAMIN D3) 1,000 unit tab tablet Take 1,000 Units by mouth once daily. - lithium carbonate 600 mg capsule Take 600 mg by mouth daily at bedtime. - pantoprazole DR (PROTONIX) 40 mg tablet Take 40 mg by mouth once daily. - ARIPiprazole lauroxil ER (ARISTADA) 441 mg/1.6 mL injection Inject 441 mg intramuscularly every 4 weeks. - ONETOUCH VERIO TEST STRIPS test strip 1 Each four times daily. - imipramine HCl (TOFRANIL) 25 mg tablet Take 25 mg by mouth daily at bedtime. - ONETOUCH DELICA PLUS LANCET 33 gauge 1 Each four times daily. - metoclopramide HCl (REGLAN) 10 mg tablet Take 5 mg by mouth four times daily. - metoprolol tartrate, short acting, (LOPRESSOR) 50 mg tablet Take 100 mg by mouth two times a day. - polyethylene glycol 3350 17 gram/dose powder Take 17 g by mouth once daily. - simvastatin (ZOCOR) 20 mg tablet Take 20 mg by mouth daily at bedtime. - ferrous sulfate 325 mg (65 mg iron) tablet Take 325 mg by mouth every other day. - lithium carbonate (ESKALITH) 300 mg capsule Take 300 mg by mouth daily after breakfast. Problem List As Of Date 08/28/2024 Noted Resolved Bipolar disorder (HCC) [F31.9] 05/20/2016 Autism spectrum disorder [F84.0] Ophthalmic migraine [G43.109] 08/21/2016 Headache, chronic daily [R51.9] 08/21/2016 High myopia [H52.10] 08/21/2016 Obesity, Class III, BMI 40-49.9 (morbid obesity*10/26/2023 PCOS (polycystic ovarian syndrome) [E28.2] 02/25/2024 Prediabetes [R73.03] 05/16/2024 05/16/2024 Anxiety [F41.9] 05/16/2024 Gastroparesis [K31.84] 05/16/2024 Hirsutism [L68.0] 10/17/2023 Hypercholesterolemia [E78.00] 08/01/2023 Hidradenitis [L73.2] 05/16/2024 Hypertension [I10] 09/13/2022 Diabetes mellitus (HCC) [E11.9] 03/20/2023 Major depression, recurrent, chronic [F33.9] 05/16/2024 Irritable bowel syndrome [K58.9] 11/26/2015 Migraine headache [G43.909] 11/13/2022 Palpitations [R00.2] 07/11/2023 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] 01/31/2012 Steatosis of liver [K76.0] 02/09/2023 Suicide attempt by drug ingestion (HCC) [T50.90*07/14/2016 Suicide attempt (HCC) [T14.91XA] 06/19/2016 Suicidal ideation [R45.851] 05/16/2024 Binge eating disorder, moderate [F50.811] 05/16/2024 History of suicidal ideation [Z86.59] 05/16/2024 Encounter Status:Closed by ARSENIO SOLORIO on 08/28/24 Normal [facility] Magnetic resonance imaging r eportOrdered By: Fantasma Krishnan on 08-08-2024 Study report [facility] Imaging Services [address] [place] [address] MRI Abd WITH and W/O Contrast MR#: [id number] Acct: [id number] Name: MARION GUTIERREZ Rep #: [id number] : 1995 F 28 From: Eloy Krishnan MD PCP: Karuna Lim [facility] SR. MANAGER [employer]PORATE COMMUNICATIONS-C Status: REG CLI Study:MRI Abd WITH and W/O Contrast Date of Flor xam: 08/07/24 Exam# [id number] Ordering Dr: Robbi Oliva DO PROCEDURE: MRI ABD WITH AND W/O CONTRAST 08/07/2024 REASON FOR EXAM: LESION ON LIVER TECHNIQUE: MRI ABD WITH AND W/O CONTRAST Multiplanar and multisequence images were obtained. CONTRAST: Clariscan VOLUME: 27mL COMPARISON: CT abdomen and pelvis with IV contrast, 05/08/2024. Right upper quadrant ultrasound, 06/03/2024. Do not see anything FINDINGS: Liver: There is moderate fatty liver infiltration. Biliary: The gallbladder is normal. There is no abnormal intra or extrahepatic biliary ductal dilatation. Pancreas: Normal. Spleen: There is mild splenomegaly with the spleen measuring 13.6 cm in pole to pole length. Adrenals: Normal. Kidneys: There is a benign cortical cyst in the right kidney. Peritoneum / Retroperitoneum: There is a benign mesenteric cyst lateral to the right kidney. Lymph Nodes: There is no intra or retroperitoneal lymphadenopathy. Major Vessels: Normal. Bones: Status post posterior fusion of multiple lower thoracic and lumbar vertebral levels. MRI/MRI Abd WITH and W/O Contrast IMPRESSION: 1. There is fatty liver infiltration. There are no focal abnormality seen within the liver. 2. Other findings as noted. Reading Location: [id number] CC: Andreas Oliva DO; Karuna [facility] SR. MANAGER [employer]PORATE COMM[employer]ICATIONS-C Carina ~ General Accounting Manager: Signed [facility] Work Phone: MRI Abd WITH and W/O Contras ton 08-07-2024 MRI Abd WITH and W/O Contrast Normal [facility] Cardiology Visit Reporton Cardiology Visit Report Normal [facility] CNOVon 07-15-2024 CNOV Office Visit (ENWSTR ) -------- MARION GUTIERREZ ([id number]) 1995 F Date Time Provider Department 07/15/24 10:40 AM JEY JOHNSONWSTR During your visit today, we recorded the following information about you: Pulse Respiration Blood pressure Weight 61/minute 20/minute 122/78 134.4 kg Height Last Period 1.702 m 06/24/24 Jey Johnson MD 07/16/2024 11:20 PM Addendum Endocrinology and Metabolism [place] Follow up note Chief complaint: Evaluation of ovarian hyperandrogenism HPI Marion Gutierrez is a 28 year old female presenting for follow up evaluation of ovarian hyperandrogenism/PCOS. She is accompanied by her mother today Initial visit 10/26/23. QUANG 04/15/24 PMH: She has gastroparesis for the last 6 months or more History from initial visit, Hirsutism started: puberty Patient uses mechanical hair removal (i.e. tweezers/waxing/shaving) : cream weekly History of deepening of voice: No History of change in genitalia: No LMP: not specific, may be 8 months Menstrual flow: 3 days, mostly spotting for a day or so Menarche: 17 to 18 years old- mother thinks she was in 6th grade, patient reports she was in high school Number of Pregnancies: no Planning a : no Currently taking oral contraception: no. She used OCPs in the past 3 years ago Now she is on provera for 10 days each month She used metformin but had intolerance Interval history: 04/15/24: She reports period from Mar 30 to and then again started on 04/13/24. Nothing like this was seen since starting OCPs in Dec 2023 Facial hair has improved. No other side effects. Not on aldactone now She reports she missed one pill in mar, whichshe is suspecting the reason to be for this. She has seen nutrition in 02/2024 and is following instructions for conservative weight loss Interval history: 07/15/24: LMP early June She feels very good, tolerating medication well. She reports she is expecting her next period next week Chin hair are thinner now than before PAST MEDICAL HISTORY: PAST MEDICAL HISTORY Diagnosis Date Autism spectrum disorder (HCC) Bipolar disorder (HCC) 05/2016 Borderline diabetic Fatty liver History of depression IBS (irritable bowel syndrome) diarrhea Iron deficiency anemia Kyphosis PAST SURGICAL HISTORY: PAST SURGICAL HISTORY Procedure Laterality Date ADDITIONAL SPINAL FUSION Thoraco-lumbar fusion KNEE SURGERY HX Left patellar fracture FAMILY HISTORY: FAMILY HISTORY Problem Relation Age of Onset Hypertension Father Heart Father Hypertension Mother Heart Mother Hypertension Brother Diabetes Paternal Grandfather Glaucoma Other SOCIAL HISTORY: Social History Tobacco Use Smoking status: Never Passive exposure: Never Smokeless tobacco: Never Vaping Use Vaping status: Never Used Substance Use Topics Alcohol use: No Drug use: No MEDICATIONS: Current Outpatient Medications on File Prior to Visit Medication Sig ARIPiprazole lauroxil ER (ARISTADA) 441 mg/1.6 mL injection Inject intramuscularly. Very 28 days ONETOUCH VERIO TEST STRIPS test strip Cyanocobalamin 1,000 mcg subl Take 1,000 mcg by mouth. AJOVY SYRINGE 225 mg/1.5 mL syringe INJECT 1.5ML (1 SYRINGE) SUBCUTANEOUSLY EVERY MONTH hyoscyamine (LEVSIN) 0.125 mg tablet imipramine HCl (TOFRANIL) 25 mg tablet Take by mouth. lactulose 10 gram/15 mL solution TAKE 45 ML BY MOUTH TWICE DAILY NEEDED FOR CONSTIPATION. ONETOUCH DELICA PLUS LANCET 33 gauge medroxyPROGESTERone (PROVERA) 10 mg tablet metoclopramide HCl (REGLAN) 10 mg tablet Take 5 mg by mouth. metoprolol tartrate, short acting, (LOPRESSOR) 50 mg tablet Take 1 tablet by mouth every 12 hours. ULTICARE PEN NEEDLE 32 gauge x 1/4 polyethylene glycol 3350 17 gram/dose powder MIX 4 GRAMS WITH LIQUID AND DRINK ONCE DAILY rizatriptan (MAXALT) 10 mg tablet Take by mouth as needed. simvastatin (ZOCOR) 20 mg tablet Take 20 mg by mouth daily at bedtime. sucralfate (CARAFATE) 1 gram tablet Take 1 g by mouth four times daily. hydrOXYzine pamoate (VISTARIL) 25 mg capsule ferrous sulfate 325 mg (65 mg iron) tablet Take 325 mg by mouth every other day. spironolactone (ALDACTONE) 50 mg tablet Take 50 mg by mouth two times a day. pantoprazole DR (PROTONIX) 20 mg tablet Take 40 mg by mouth once daily. lithium carbonate (ESKALITH) 300 mg capsule Take 300 mg by mouth daily after breakfast. cholecalciferol, Vitamin D3, (VITAMIN D3) 1,250 mcg (50,000 unit) cap capsule Take 1 capsule by mouth one time a week. (Patient not taking: Reported on 10/26/2023) No current facility-administered medications on file prior to visit. ALLERGIES: ALLERGIES Allergen Reactions Ondansetron Anaphylaxis, Other: See Comments Tongue swelling Broccoli Diarrhea Cauliflower Diarrhea Anti Depressants [T* Other: See Comments Patient states she must t (more content not 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 Normal [facility] Gastroenterology Visit Repor ton 07-08-2024 Gastroenterology Visit Report Normal [facility] Arterial study reportOrdered By: Ozzy Greco on 06-23-2024 Noninvasive arteriosclerosis study report [facility] Cardiovascular Services [address] [place] [address] Upper Extremity Arterial Study 06/20/24 1006 MR#: [id number] Acct: [id number] Name: MARION GUTIERREZ Rep #:[id number] : 1995 28 From: Ozzy Masterson Attending Dr: HORTENSIA Montalvo tatus: REG CLI Ordering Dr: Shawanda Ramires NP, NP-C Usama e: 06/20/24 Location: [facility] Sex: F C Admitted: Reason For Study Reason For Study: Uneven Brachial BP / RUE Pain and Tingling Procedure A bilateral upper extremity continuous wave Doppler with analog waveform analysis and segmental pressures. Left Segmental Pressures Left brachial= 157mmHg. Left forearm by way of the radial artery = 156mmHg. Leftradial= 167mmHg. Left ulnar= 165mmHg. Left digit = 114 mmHg. The left ulnar waveforms are triphasic. The left radial waveforms are triphasic. Right Segmental Pressures Right brachial= 148mmHg. Right forearm pressure by way of the radial artery = 162mmHg. Right radial= 165mmHg. Right ulnar= 155mmHg. Right digit = 130 mmHg. The right ulnar waveforms are triphasic.The right radial waveforms are triphasic. Indices The right wrist-brachial index is 1.05. The right digital-brachial index is 0.83. The left wrist-brachial index is 1.06. The left digital-brachial index is 0.73. VL/Upper Extremity Arterial Study Interpretation Summary Right wrist-brachial index 1.05, normal. Doppler/PVR waveforms of the right arm normal at rest. Digit index diminished, digit disease vs spasm. Left wrist brachial index 1.06, normal. Doppler/PVR waveforms of the left arm normal at rest. Digit index diminished, digit disease vs spasm. Ordering Physician: Shawanda Ramires Referring Physician: [facility] Performed By: Tylor Encarnacion RVT 06/23/2436 Date _ Ozzy Greco MD CC: HORTENSIA Ramires; Karuna [facility] HORTENSIA Lim ~ Date Dictated: 06/20/24 1006 Date Transcribed: 06/23/24735 General Accounting Manager: Signed [facility] Work Phone: Upper Extremity Arterial Skyler dyon 06-20-2024 Upper Extremity Arterial Study Normal [facility] Absolute lymphocyte countOrd ered By: Karuna Lim on 06-10-2024 Lymphocytes Auto (Unsp spec) [#/Vol] 2.20 10*3/uL 0.83-4.51 [facility] Absolute neutrophil countOrd ered By: Karuna Lim on 06-10-2024 Neutrophils (Bld) [#/Vol] 5.9 10*3/uL 2.0-7.7 [facility] Anion gap in Serum or Plasma Ordered By: Karuna Lim on 06-10-2024 Anion gap [Moles/Vol] 12 mmol/L 5-15 [facility] Automated lymphocyte count a s percentage of total leukocytesOrdered By: Zebulun Beam on 06-10-2024 Lymphocytes/100 WBC Auto (Unsp spec) 24.7 % 19-41 [facility] BUN/creatinine ratioOrdered By: Zebulun Beam on 06-10-2024 Urea nitrogen/Creatinine [Mass ratio] 12.5 mg/mg 10-20 [facility] Basophil percentageOrdered B y: Zebulun Beam on 06-10-2024 Basophils/100 WBC (Bld) 0.6 % 0-1 [facility] Bilirubin, totalOrdered By: Zebulun Beam on 06-10-2024 Bilirubin [Mass/Vol] 0.30 mg/dL 0.00-1.30 [facility] CBC W/Diff, Automatedon 05-21 Absolute Lymph 2.20 X10 3/uL Normal 0.83-4.51 [facility] Comment on above: Performed By: #### L 100.0100, L500.4050 ####[facility] [address] [place], [address] Absolute Neut 5.9 X10 3/uL Normal 2.0-7.7 [facility] Comment on above: Performed By: #### L 100.0100, L500.4050 ####[facility] [address] [place], [address] Basophils/100 WBC (Bld) 0.6 % Normal 0-1 [facility] Comment on above: Performed By: #### L 100.0100, L500.4050 ####[facility] [address] [place], [address] Eosinophils/100 WBC (Bld) 0.2 % Normal 0-5 [facility] Comment on above: Performed By: #### L 100.0100, L500.4050 ####[facility] [address] [place], [address] Erythrocyte distribution width (RBC) [Ratio] 14.3 % Normal 11.6-14.6 [facility] Comment on above: Performed By: #### L 100.0100, L500.4050 ####[facility] [address] [place], [address] Hematocrit (Bld) [Volume fraction] 38.5 % Normal 37-47 [facility] Comment on above: Performed By: #### L 100.0100, L500.4050 ####[facility] [address] [place], [address] Hemoglobin (Bld) [Mass/Vol] 12.7 g/dL Normal 12.0-15.0 [facility] Comment on above: Performed By: #### L 100.0100, L500.4050 ####[facility] [address] [place], [address] IG% 0.300 Normal 0.0-0.9 [facility] Comment on above: Result Comment: IG% - Immature Granulocytes (promyelocytes, myelocytes andmetamyelocytes) > 1% indicates that a LEFT SHIFT is Present. Performed By: #### L 100.0100, L500.4050 ####[facility] [address] [place], [address] Lymphocytes/100 WBC (Bld) 24.7 % Normal 19-41 [facility] Comment on above: Performed By: #### L 100.0100, L500.4050 ####[facility] [address] [place], [address] MCH (RBC) [Entitic mass] 26.7 pg Low 27.0-32.0 [facility] Comment on above: Performed By: #### L 100.0100, L500.4050 ####[facility] [address] [place], [address] MCHC (RBC) [Mass/Vol] 33.0 g/dL Normal 32-36 [facility] Comment on above: Performed By: #### L 100.0100, L500.4050 ####[facility] [address] [place], [address] MCV (RBC) [Entitic vol] 81.1 fL Normal 81-99 [facility] Comment on above: Performed By: #### L 100.0100, L500.4050 ####[facility] [address] [place], [address] Monocytes/100 WBC (Bld) 7.4 % Normal 0-10 [facility] Comment on above: Performed By: #### L 100.0100, L500.4050 ####[facility] [address] [place], [address] Neutrophils/100 WBC (Bld) 66.8 % Normal 47-70 [facility] Comment on above: Performed By: #### L 100.0100, L500.4050 ####[facility] [address] [place], [address] Nucleated RBC (Bld) [#/Vol] 0 10*3/uL Normal 0-5 [facility] Comment on above: Performed By: #### L 100.0100, L500.4050 ####[facility] [address] [place], [address] Platelet mean volume (Bld) [Entitic vol] 9.0 fL Normal 6.2-12.0 [facility] Comment on above: Performed By: #### L 100.0100, L500.4050 ####[facility] [address] [place], [address] Platelets (Bld) [#/Vol] 414 10*3/uL Normal 150-450 [facility] Comment on above: Performed By: #### L 100.0100, L500.4050 ####[facility] [address] [place], [address] RBC (Bld) [#/Vol] 4.75 10*6/uL Normal 4.2-5.4 [facility] Comment on above: Performed By: #### L 100.0100, L500.4050 ####[facility] [address] [place], [address] RDW SD 42.1 fl Normal 35.1-43.9 [facility] Comment on above: Performed By: #### L 100.0100, L500.4050 ####[facility] [address] [place], [address] WBC (Bld) [#/Vol] 8.9 10*3/uL Normal 4.4-11.0 [facility] Comment on above: Performed By: #### L 100.0100, L500.4050 ####[facility] [address] [place], [address] Carbon dioxide, total [Moles /volume] in Central venous bloodOrdered By: Karuna Lim on 06-10-2024 CO2 [Moles/Vol] 23.3 mmol/L 21.0-32.0 [facility] Chloride assayOrdered By: Vazquez Lim on 06-10-2024 Chloride [Moles/Vol] 104 mmol/L 98-108 [facility] Comprehensive Metabolic Prof ilon 06-10-2024 Albumin [Mass/Vol] 3.9 g/dL Normal 3.5-5.0 [facility] Comment on above: Performed By: #### L 100.0100, L500.4050 ####[facility] [address] [place], [address] Albumin/Globulin [Mass ratio] 1.2 {ratio} Normal 0.9-2.4 [facility] Comment on above: Performed By: #### L 100.0100, L500.4050 ####[facility] [address] [place], [address] ALK PHOS 64 U/L Normal 35-104 [facility] Comment on above: Performed By: #### L 100.0100, L500.4050 ####[facility] [address] [place], [address] ALT [Catalytic activity/Vol] 28 U/L Normal <=34 [facility] Comment on above: Performed By: #### L 100.0100, L500.4050 ####[facility] [address] [place], [address] AST [Catalytic activity/Vol] 22 U/L Normal <=31 [facility] Comment on above: Performed By: #### L 100.0100, L500.4050 ####[facility] [address] [place], [address] Bilirubin [Mass/Vol] 0.30 mg/dL Normal 0.00-1.30 [facility] Comment on above: Performed By: #### L 100.0100, L500.4050 ####[facility] [address] [place], [address] BUN/CRE 12.5 RATIO Normal 10-20 [facility] Comment on above: Performed By: #### L 100.0100, L500.4050 ####[facility] [address] [place], [address] Calcium [Mass/Vol] 9.4 mg/dL Normal 7.6-11.0 [facility] Comment on above: Performed By: #### L 100.0100, L500.4050 ####[facility] [address] [place], [address] Chloride [Moles/Vol] 104 mmol/L Normal 98-108 [facility] Comment on above: Performed By: #### L 100.0100, L500.4050 ####[facility] [address] [place], [address] CO2 [Moles/Vol] 23.3 mmol/L Normal 21.0-32.0 [facility] Comment on above: Performed By: #### L 100.0100, L500.4050 ####[facility] [address] [place], [address] Creatinine [Mass/Vol] 0.98 mg/dL Normal 0.70-1.20 [facility] Comment on above: Performed By: #### L 100.0100, L500.4050 ####[facility] [address] [place], [address] GAP 12 Normal 5-15 [facility] Comment on above: Performed By: #### L 100.0100, L500.4050 ####[facility] [address] [place], [address] GFR/1.73 sq M.predicted among non-blacks MDRD (S/P/Bld) [Vol rate/Area] 82 mL/min/{1.73_m2} Normal >60 [facility] Comment on above: Result Comment: mL/m in/1.73m2 CKD-EPI Creatinine Equation (2020) Performed By: #### L 100.0100, L500.4050 ####[facility] [address] [place], [address] Globulin (S) [Mass/Vol] 3.3 g/dL Normal 2.2-4.2 [facility] Comment on above: Performed By: #### L 100.0100, L500.4050 ####[facility] [address] [place], [address] Glucose [Mass/Vol] 120 mg/dL High 70-99 [facility] Comment on above: Performed By: #### L 100.0100, L500.4050 ####[facility] [address] [place], [address] Potassium [Moles/Vol] 3.9 mmol/L Normal 3.3-5.1 [facility] Comment on above: Performed By: #### L 100.0100, L500.4050 ####[facility] [address] [place], [address] Sodium [Moles/Vol] 138 mmol/L Normal 133-145 [facility] Comment on above: Performed By: #### L 100.0100, L500.4050 ####[facility] [address] [place], [address] T PROT 7.1 g/dL Normal 5.9-8.4 [facility] Comment on above: Performed By: #### L 100.0100, L500.4050 ####[facility] [address] [place], [address] Urea nitrogen [Mass/Vol] 12 mg/dL Normal 4-19 [facility] Comment on above: Performed By: #### L 100.0100, L500.4050 ####[facility] [address] [place], [address] Eosinophil percentageOrdered By: Zebulun Beam on 06-10-2024 Eosinophils/100 WBC (Bld) 0.2 % 0-5 [facility] Erythrocyte distribution wid th ratioOrdered By: Zebulun Beam on 06-10-2024 Erythrocyte distribution width (RBC) [Ratio] 14.3 % 11.6-14.6 [facility] Erythrocyte distribution wid th standard deviationOrdered By: Zebulun Beam on 06-10-2024 Erythrocyte distribution width (RBC) [Ratio] 42.1 fl 35.1-43.9 [facility] Glomerular filtration rate ( GFR) estimation/1.73 sq m using serum, plasma, or whole bOrdered By: Vazquezbulun Beam on 06-10-2024 GFR/1.73 sq M.predicted among non-blacks MDRD (S/P/Bld) [Vol rate/Area] 82 mL/min/{1.73_m2} >60 [facility] Comment on above: mL/min/1.73m2 CKD-EP I Creatinine Equation (2020) Hematocrit Auto (Bld) [Volum e fraction]Ordered By: Jakin Carina on 06-10-2024 Hematocrit (Bld) [Volume fraction] 38.5 % 37-47 [facility] Hemoglobin measurementOrdere d By: Paytonlun Beam on 06-10-2024 Hemoglobin (Bld) [Mass/Vol] 12.7 g/dL 12.0-15.0 [facility] Immature granulocytes/100 WB C Auto (Bld)Ordered By: kwasilun Beam on 06-10-2024 Immature granulocytes/100 WBC (Bld) 0.300 % 0.0-0.9 [facility] Comment on above: IG% - Immature Granu locytes (promyelocytes, myelocytes and metamyelocytes) > 1% indicates that a LEFT SHIFT is Present. Laboratory - Chemistry and C hemistry - challengeOrdered By: Jakin Carina on 06-10-2024 AST [Catalytic activity/Vol] 22 U/L <32 [facility] MCV (mean corpuscular volume ) determinationOrdered By: [facility] 06-10-2024 MCV (RBC) [Entitic vol] 81.1 fL 81-99 [facility] Mean corpuscular hemoglobin (MCH) determinationOrdered By: bulun Beam on 06-10-2024 MCH (RBC) [Entitic mass] 26.7 pg Low 27.0-32.0 [facility] Mean corpuscular hemoglobin concentration (MCHC) determinationOrdered By: bulun Beam on 06-10-2024 MCHC (RBC) [Mass/Vol] 33.0 g/dL 32-36 [facility] Mean platelet volume determi nationOrdered By: [facility] on 06-10-2024 Platelet mean volume (Bld) [Entitic vol] 9.0 fL 6.2-12.0 [facility] Monocyte percentageOrdered B y: Vazquezbulun Beam on 06-10-2024 Monocytes/100 WBC (Bld) 7.4 % 0-10 [facility] Neutrophil percentageOrdered By: Zebulun Beam on 06-10-2024 Neutrophils/100 WBC (Bld) 66.8 % 47-70 [facility] Nucleated red blood cell per centageOrdered By: Karuna Lim on 06-10-2024 Nucleated RBC/100 WBC (Bld) [Ratio] 0 % 0-5 [facility] Platelet countOrdered By: Vazquez Lim on 06-10-2024 Platelets (Bld) [#/Vol] 414 10*3/uL 150-450 [facility] Potassium measurement (mass/ volume)Ordered By: Karuna Lim on 06-10-2024 Potassium (Unsp spec) [Mass/Vol] 3.9 mmol/L 3.3-5.1 [facility] RBC Auto (Bld) [#/Vol]Ordere d By: Karuna Lim on 06-10-2024 RBC (Bld) [#/Vol] 4.75 10*6/uL 4.2-5.4 [facility] Serum creatinine measurement (mass/volume)Ordered By: Karuna Lim on 06-10-2024 Creatinine [Mass/Vol] 0.98 mg/dL 0.70-1.20 [facility] Serum globulin measurementOr dered By: Karuna Lim on 06-10-2024 Globulin (S) [Mass/Vol] 3.3 g/dL 2.2-4.2 [facility] Serum glucose measurement (m ass/volume)Ordered By: Karuna Lim on 06-10-2024 Glucose [Mass/Vol] 120 mg/dL High 70-99 [facility] Serum or plasma alanine godinez otransferase (ALT) measurementOrdered By: Karuna Lim on 06-10-2024 ALT [Catalytic activity/Vol] 28 U/L <35 [facility] Serum or plasma albumin cherelle urement (mass/volume)Ordered By: Karuna Lim on 06-10-2024 Albumin [Mass/Vol] 3.9 g/dL 3.5-5.0 [facility] Serum or plasma albumin/glob ulin mass ratioOrdered By: Karuna Lim 06-10-2024 Albumin/Globulin [Mass ratio] 1.2 {ratio} 0.9-2.4 [facility] Serum or plasma alkaline rohit sphatase measurementOrdered By: Karuna Lim on 06-10-2024 ALP [Catalytic activity/Vol] 64 U/L 35-104 [facility] Serum or plasma calcium cherelle urement (mass/volume)Ordered By: Paytonlun Beam on 06-10-2024 Calcium [Mass/Vol] 9.4 mg/dL 7.6-11.0 [facility] Serum or plasma urea nitroge n measurement (mass/volume)Ordered By: Paytonlun Beam on 06-10-2024 Urea nitrogen [Mass/Vol] 12 mg/dL 4-19 [facility] Sodium levelOrdered By: Payton boyd Beam on 06-10-2024 Sodium [Moles/Vol] 138 mmol/L 133-145 [facility] Total proteinOrdered By: Juventino Lim on 06-10-2024 Protein [Mass/Vol] 7.1 g/dL 5.9-8.4 [facility] White blood cell (WBC) count Ordered By: Karuna Lim on 06-10-2024 WBC (Bld) [#/Vol] 8.9 10*3/uL 4.4-11.0 [facility] 12 Lead EKGon 06-03-2024 12 Lead EKG Normal [facility] Abdomen Limitedon 06-03-2024 Abdomen Limited Normal [facility] Absolute lymphocyte countOrd ered By: Jaylon Galicia on 06-03-2024 Lymphocytes Auto (Unsp spec) [#/Vol] 1.66 10*3/uL 0.83-4.51 [facility] Absolute neutrophil countOrd ered By: Jaylon Galicia on 06-03-2024 Neutrophils (Bld) [#/Vol] 4.2 10*3/uL 2.0-7.7 [facility] Anion gap in Serum or Plasma Ordered By: Jaylon Galicia on 06-03-2024 Anion gap [Moles/Vol] 12 mmol/L - [facility] Automated lymphocyte count a s percentage of total leukocytesOrdered By: Jaylon Galicia on 06-03-2024 Lymphocytes/100 WBC Auto (Unsp spec) 25.5 % -41 [facility] BUN/creatinine ratioOrdered By: Jaylon Galicia on 06-03-2024 Urea nitrogen/Creatinine [Mass ratio] 17.9 mg/mg - [facility] Basic Metabolic Profile (BMP )on 06-03-2024 BUN/CRE 17.9 RATIO Normal 12-08 [facility] Comment on above: Performed By: #### L 100.0100, L500.2500, L501.4021 ####[facility] [address] [place], [address] Calcium [Mass/Vol] 8.9 mg/dL Normal 7.6-11.0 [facility] Comment on above: Performed By: #### L 100.0100, L500.2500, L501.4021 ####[facility] [address] [place], [address] Chloride [Moles/Vol] 105 mmol/L Normal 98-108 [facility] Comment on above: Performed By: #### L 100.0100, L500.2500, L501.4021 ####[facility] [address] [place], [address] CO2 [Moles/Vol] 22.0 mmol/L Normal 21.0-32.0 [facility] Comment on above: Performed By: #### L 100.0100, L500.2500, L501.4021 ####[facility] [address] [place], [address] Creatinine [Mass/Vol] 0.53 mg/dL Low 0.70-1.20 [facility] Comment on above: Performed By: #### L 100.0100, L500.2500, L501.4021 ####[facility] [address] [place], [address] ECRCL 225.17 ml/min Normal 50-250 [facility] Comment on above: Performed By: #### L 100.0100, L500.2500, L501.4021 ####[facility] [address] [place], [address] GAP 12 Normal 5-15 [facility] Comment on above: Performed By: #### L 100.0100, L500.2500, L501.4021 ####[facility] [address] [place], [address] GFR/1.73 sq M.predicted among non-blacks MDRD (S/P/Bld) [Vol rate/Area] 130 mL/min/{1.73_m2} Normal >60 [facility] Comment on above: Result Comment: mL/m in/1.73m2 CKD-EPI Creatinine Equation (2020) Performed By: #### L 100.0100, L500.2500, L501.4021 ####[facility] [address] [place], [address] Glucose [Mass/Vol] 118 mg/dL High 70-99 [facility] Comment on above: Performed By: #### L 100.0100, L500.2500, L501.4021 ####[facility] [address] [place], [address] Potassium [Moles/Vol] 3.5 mmol/L Normal 3.3-5.1 [facility] Comment on above: Performed By: #### L 100.0100, L500.2500, L501.4021 ####[facility] [address] [place], [address] Sodium [Moles/Vol] 139 mmol/L Normal 133-145 [facility] Comment on above: Performed By: #### L 100.0100, L500.2500, L501.4021 ####[facility] [address] [place], [address] Urea nitrogen [Mass/Vol] 9 mg/dL Normal 4-19 [facility] Comment on above: Performed By: #### L 100.0100, L500.2500, L501.4021 ####[facility] [address] [place], [address] Basophil percentageOrdered B y: Jaylon Galicia on 06-03-2024 Basophils/100 WBC (Bld) 0.5 % 0-1 [facility] CBC W/Diff, Automatedon 05-20 Absolute Lymph 1.66 X10 3/uL Normal 0.83-4.51 [facility] Comment on above: Performed By: #### L 100.0100, L500.2500, L501.4021 ####[facility] [address] [place], [address] Absolute Neut 4.2 X10 3/uL Normal 2.0-7.7 [facility] Comment on above: Performed By: #### L 100.0100, L500.2500, L501.4021 ####[facility] [address] [place], [address] Basophils/100 WBC (Bld) 0.5 % Normal 0-1 [facility] Comment on above: Performed By: #### L 100.0100, L500.2500, L501.4021 ####[facility] [address] [place], [address] Eosinophils/100 WBC (Bld) 0.5 % Normal 0-5 [facility] Comment on above: Performed By: #### L 100.0100, L500.2500, L501.4021 ####[facility] [address] [place], [address] Erythrocyte distribution width (RBC) [Ratio] 14.3 % Normal 11.6-14.6 [facility] Comment on above: Performed By: #### L 100.0100, L500.2500, L501.4021 ####[facility] [address] [place], [address] Hematocrit (Bld) [Volume fraction] 36.7 % Low 37-47 [facility] Comment on above: Performed By: #### L 100.0100, L500.2500, L501.4021 ####[facility] [address] [place], [address] Hemoglobin (Bld) [Mass/Vol] 12.1 g/dL Normal 12.0-15.0 [facility] Comment on above: Performed By: #### L 100.0100, L500.2500, L501.4021 ####[facility] [address] [place], [address] IG% 0.300 Normal 0.0-0.9 [facility] Comment on above: Result Comment: IG% - Immature Granulocytes (promyelocytes, myelocytes andmetamyelocytes) > 1% indicates that a LEFT SHIFT is Present. Performed By: #### L 100.0100, L500.2500, L501.4021 ####[facility] [address] [place], [address] Lymphocytes/100 WBC (Bld) 25.5 % Normal 19-41 [facility] Comment on above: Performed By: #### L 100.0100, L500.2500, L501.4021 ####[facility] [address] [place], [address] MCH (RBC) [Entitic mass] 26.7 pg Low 27.0-32.0 [facility] Comment on above: Performed By: #### L 100.0100, L500.2500, L501.4021 ####[facility] [address] [place], [address] MCHC (RBC) [Mass/Vol] 33.0 g/dL Normal 32-36 [facility] Comment on above: Performed By: #### L 100.0100, L500.2500, L501.4021 ####[facility] [address] [place], [address] MCV (RBC) [Entitic vol] 81.0 fL Normal 81-99 [facility] Comment on above: Performed By: #### L 100.0100, L500.2500, L501.4021 ####[facility] [address] [place], [address] Monocytes/100 WBC (Bld) 8.9 % Normal 0-10 [facility] Comment on above: Performed By: #### L 100.0100, L500.2500, L501.4021 ####[facility] [address] [place], [address] Neutrophils/100 WBC (Bld) 64.3 % Normal 47-70 [facility] Comment on above: Performed By: #### L 100.0100, L500.2500, L501.4021 ####[facility] [address] [place], [address] Nucleated RBC (Bld) [#/Vol] 0 10*3/uL Normal 0-5 [facility] Comment on above: Performed By: #### L 100.0100, L500.2500, L501.4021 ####[facility] [address] [place], [address] Platelet mean volume (Bld) [Entitic vol] 9.8 fL Normal 6.2-12.0 [facility] Comment on above: Performed By: #### L 100.0100, L500.2500, L501.4021 ####[facility] [address] [place], [address] Platelets (Bld) [#/Vol] 347 10*3/uL Normal 150-450 [facility] Comment on above: Performed By: #### L 100.0100, L500.2500, L501.4021 ####[facility] [address] [place], [address] RBC (Bld) [#/Vol] 4.53 10*6/uL Normal 4.2-5.4 [facility] Comment on above: Performed By: #### L 100.0100, L500.2500, L501.4021 ####[facility] [address] [place], [address] RDW SD 42.2 fl Normal 35.1-43.9 [facility] Comment on above: Performed By: #### L 100.0100, L500.2500, L501.4021 ####[facility] [address] [place], [address] WBC (Bld) [#/Vol] 6.5 10*3/uL Normal 4.4-11.0 [facility] Comment on above: Performed By: #### L 100.0100, L500.2500, L501.4021 ####[facility] [address] [place], [address] CTA Chest W/WO Contraston CTA Chest W/WO Contrast Normal [facility] CTA Head AND Neck W/ Contras ton 06-03-2024 CTA Head AND Neck W/ Contrast Normal [facility] Carbon dioxide, total [Moles /volume] in Central venous bloodOrdered By: Jaylon Galicia on 06-03-2024 CO2 [Moles/Vol] 22.0 mmol/L 21.0-32.0 [facility] Chloride assayOrdered By: Blanca Galicia on 06-03-2024 Chloride [Moles/Vol] 105 mmol/L 98-108 [facility] Emergency Department Summary on 06-03-2024 Emergency Department Summary Normal [facility] Eosinophil percentageOrdered By: Jaylon Galicia on 06-03-2024 Eosinophils/100 WBC (Bld) 0.5 % 0-5 [facility] Erythrocyte distribution wid th (RBC) [Ratio]Ordered By: Jaylon Galicia on 06-03-2024 Erythrocyte distribution width (RBC) [Entitic vol] 42.2 fL 35.1-43.9 [facility] Erythrocyte distribution wid th ratioOrdered By: Jaylon Galicia on 06-03-2024 Erythrocyte distribution width (RBC) [Ratio] 14.3 % 11.6-14.6 [facility] Erythrocyte distribution wid th standard deviationOrdered By: Jaylon Galicia on 06-03-2024 Erythrocyte distribution width (RBC) [Ratio] 42.2 fl 35.1-43.9 [facility] Estimation of creatinine thad aranceOrdered By: Jaylon Galicia on 06-03-2024 Estimated Creatinine Clearance Calc 225.17 ml/min 50-250 [facility] GFR/1.73 sq M.predicted janet g non-blacks MDRD (S/P/Bld) [Vol rate/Area]Ordered By: Jaylon Galciia on 06-03-2024 Estimated GFR (MDRD) Non-Af Amer 130 >60 [facility] Comment on above: mL/min/1.73m2 CKD-EP I Creatinine Equation (2020) Glomerular filtration rate ( GFR) estimation/1.73 sq m using serum, plasma, or whole bOrdered By: Jaylon Galicia on 06-03-2024 GFR/1.73 sq M.predicted among non-blacks MDRD (S/P/Bld) [Vol rate/Area] 130 mL/min/{1.73_m2} >60 [facility] Comment on above: mL/min/1.73m2 CKD-EP I Creatinine Equation (2020) Hematocrit Auto (Bld) [Volum e fraction]Ordered By: Jaylon Galicia on 06-03-2024 Hematocrit (Bld) [Volume fraction] 36.7 % Low 37-47 [facility] Hemoglobin measurementOrdere d By: Jaylon Galicia on 06-03-2024 Hemoglobin (Bld) [Mass/Vol] 12.1 g/dL 12.0-15.0 [facility] Immature granulocytes/100 WB C Auto (Bld)Ordered By: Jaylon Galicia on 06-03-2024 Immature granulocytes/100 WBC (Bld) 0.300 % 0.0-0.9 [facility] Comment on above: IG% - Immature Granu locytes (promyelocytes, myelocytes and metamyelocytes) > 1% indicates that a LEFT SHIFT is Present. L499.0042on 06-03-2024 Trop T High Sen < 6 Normal <=14 [facility] Comment on above: Performed By: #### L 499.0042 ####[facility] [address] [place], [address] L499.0043on 06-03-2024 Trop T High Sen Normal <=14 [facility] Comment on above: Result Comment: NATHAN ENT DISCHARGED Performed By: #### L 499.0043 ####[facility] [address] [place], [address] L501.4021on 06-03-2024 Trop T High Sen < 6 Normal <=14 [facility] Comment on above: Performed By: #### L 100.0100, L500.2500, L501.4021 ####[facility] [address] [place], [address] Lymphocytes Auto (Unsp spec) [#/Vol]Ordered By: Jaylon Galicia on 06-03-2024 Lymphocytes (Bld) [#/Vol] 1.66 10*3/uL 0.83-4.51 [facility] Lymphocytes/100 WBC Auto (Un sp spec)Ordered By: Jaylon Galicia on 06-03-2024 Lymphocytes/100 WBC (Bld) 25.5 % 19-41 [facility] MCV (mean corpuscular volume ) determinationOrdered By: Jaylon Galicia on 06-03-2024 MCV (RBC) [Entitic vol] 81.0 fL 81-99 [facility] Mean corpuscular hemoglobin (MCH) determinationOrdered By: Jaylon Galicia on 06-03-2024 MCH (RBC) [Entitic mass] 26.7 pg Low 27.0-32.0 [facility] Mean corpuscular hemoglobin concentration (MCHC) determinationOrdered By: Jaylon Galicia on 06-03-2024 MCHC (RBC) [Mass/Vol] 33.0 g/dL 32-36 [facility] Mean platelet volume determi nationOrdered By: Jaylon Galicia on 06-03-2024 Platelet mean volume (Bld) [Entitic vol] 9.8 fL 6.2-12.0 [facility] Monocyte percentageOrdered B y: Jaylon Galicia on 06-03-2024 Monocytes/100 WBC (Bld) 8.9 % 0-10 [facility] Neutrophil percentageOrdered By: Jaylon Galicia on 06-03-2024 Neutrophils/100 WBC (Bld) 64.3 % 47-70 [facility] Nucleated red blood cell per centageOrdered By: Jaylon Galicia on 06-03-2024 Nucleated RBC/100 WBC (Bld) [Ratio] 0 % 0-5 [facility] Platelet countOrdered By: Blanca Galicia on 06-03-2024 Platelets (Bld) [#/Vol] 347 10*3/uL 150-450 [facility] Potassium (Unsp spec) [Mass/ Vol]Ordered By: Jaylon Galicia on 06-03-2024 Potassium [Moles/Vol] 3.5 mmol/L 3.3-5.1 [facility] Potassium measurement (mass/ volume)Ordered By: Jaylon Galicia on 06-03-2024 Potassium (Unsp spec) [Mass/Vol] 3.5 mmol/L 3.3-5.1 [facility] RBC Auto (Bld) [#/Vol]Ordere d By: Jaylon Galicia on 06-03-2024 RBC (Bld) [#/Vol] 4.53 10*6/uL 4.2-5.4 [facility] Serum creatinine measurement (mass/volume)Ordered By: Jaylon Galicia on 06-03-2024 Creatinine [Mass/Vol] 0.53 mg/dL Low 0.70-1.20 [facility] Serum glucose measurement (m ass/volume)Ordered By: Jaylon Galicia on 06-03-2024 Glucose [Mass/Vol] 118 mg/dL High 70-99 [facility] Serum or plasma calcium cherelle urement (mass/volume)Ordered By: Jaylon Galicia on 06-03-2024 Calcium [Mass/Vol] 8.9 mg/dL 7.6-11.0 [facility] Serum or plasma urea nitroge n measurement (mass/volume)Ordered By: Jaylon Galicia on 06-03-2024 Urea nitrogen [Mass/Vol] 9 mg/dL 4-19 [facility] Sodium levelOrdered By: Tomy Galicia on 06-03-2024 Sodium [Moles/Vol] 139 mmol/L 133-145 [facility] Troponin T.cardiac High sens itivity method [Mass/Vol]Ordered By: Jaylon Galicia on 06-03-2024 Troponin T High Sensitivity 2 Hour < 6 ng/L <14 [facility] Troponin T High Sensitivity < 6 ng/L <14 [facility] Troponin T.cardiac [Mass/vol ume] in Serum or Plasma by High sensitivity methodOrdered By: Jaylon Galicia on 06-03-2024 Troponin T.cardiac High sensitivity method [Mass/Vol] < 6 ng/L <14 [facility] Troponin T.cardiac High sensitivity method [Mass/Vol] < 6 ng/L <14 [facility] White blood cell (WBC) count Ordered By: Jaylon Galicia on 06-03-2024 WBC (Bld) [#/Vol] 6.5 10*3/uL 4.4-11.0 [facility] Cardiology Visit Reporton Cardiology Visit Report Normal [facility] Anion gap in Serum or Plasma Ordered By: Karina Guerra on 05-23-2024 Anion gap [Moles/Vol] 11 mmol/L 5- [facility] BUN/creatinine ratioOrdered By: Karina Guerra on 05-23-2024 Urea nitrogen/Creatinine [Mass ratio] 16.1 mg/mg 10- [facility] Bilirubin, totalOrdered By: Karina Guerra on 05-23-2024 Bilirubin [Mass/Vol] 0.22 mg/dL 0.00-1.30 [facility] Carbon dioxide, total [Moles /volume] in Central venous bloodOrdered By: Karina Guerra on 05-23-2024 CO2 [Moles/Vol] 21.4 mmol/L 21.0-32.0 [facility] Chloride assayOrdered By: Blair Guerra on 05-23-2024 Chloride [Moles/Vol] 106 mmol/L 98-108 [facility] Comprehensive Metabolic Prof ilon 05-23-2024 Albumin [Mass/Vol] 3.8 g/dL Normal 3.5-5.0 [facility] Comment on above: Performed By: #### L 500.4050, L501.9520, L501.9060 ####[facility] [address] [place], [address] Albumin/Globulin [Mass ratio] 1.1 {ratio} Normal 0.9-2.4 [facility] Comment on above: Performed By: #### L 500.4050, L501.9520, L501.9060 ####[facility] [address] [place], [address] ALK PHOS 58 U/L Normal 35-104 [facility] Comment on above: Performed By: #### L 500.4050, L501.9520, L501.9060 ####[facility] [address] [place], [address] ALT [Catalytic activity/Vol] 32 U/L Normal <=34 [facility] Comment on above: Performed By: #### L 500.4050, L501.9520, L501.9060 ####[facility] [address] [place], [address] AST [Catalytic activity/Vol] 23 U/L Normal <=31 [facility] Comment on above: Performed By: #### L 500.4050, L501.9520, L501.9060 ####[facility] [address] [place], [address] Bilirubin [Mass/Vol] 0.22 mg/dL Normal 0.00-1.30 [facility] Comment on above: Performed By: #### L 500.4050, L501.9520, L501.9060 ####[facility] [address] [place], [address] BUN/CRE 16.1 RATIO Normal 10-20 [facility] Comment on above: Performed By: #### L 500.4050, L501.9520, L501.9060 ####[facility] [address] [place], [address] Calcium [Mass/Vol] 9.4 mg/dL Normal 7.6-11.0 [facility] Comment on above: Performed By: #### L 500.4050, L501.9520, L501.9060 ####[facility] [address] [place], [address] Chloride [Moles/Vol] 106 mmol/L Normal 98-108 [facility] Comment on above: Performed By: #### L 500.4050, L501.9520, L501.9060 ####[facility] [address] [place], [address] CO2 [Moles/Vol] 21.4 mmol/L Normal 21.0-32.0 [facility] Comment on above: Performed By: #### L 500.4050, L501.9520, L501.9060 ####[facility] [address] [place], [address] Creatinine [Mass/Vol] 0.53 mg/dL Low 0.70-1.20 [facility] Comment on above: Performed By: #### L 500.4050, L501.9520, L501.9060 ####[facility] [address] [place], [address] GAP 11 Normal 5-15 [facility] Comment on above: Performed By: #### L 500.4050, L501.9520, L501.9060 ####[facility] [address] [place], [address] GFR/1.73 sq M.predicted among non-blacks MDRD (S/P/Bld) [Vol rate/Area] 130 mL/min/{1.73_m2} Normal >60 [facility] Comment on above: Result Comment: mL/m in/1.73m2 CKD-EPI Creatinine Equation (2020) Performed By: #### L 500.4050, L501.9520, L501.9060 ####[facility] [address] [place], [address] Globulin (S) [Mass/Vol] 3.4 g/dL Normal 2.2-4.2 [facility] Comment on above: Performed By: #### L 500.4050, L501.9520, L501.9060 ####[facility] [address] [place], [address] Glucose [Mass/Vol] 114 mg/dL High 70-99 [facility] Comment on above: Performed By: #### L 500.4050, L501.9520, L501.9060 ####[facility] [address] [place], [address] Potassium [Moles/Vol] 4.2 mmol/L Normal 3.3-5.1 [facility] Comment on above: Performed By: #### L 500.4050, L501.9520, L501.9060 ####[facility] [address] [place], [address] Sodium [Moles/Vol] 138 mmol/L Normal 133-145 [facility] Comment on above: Performed By: #### L 500.4050, L501.9520, L501.9060 ####[facility] [address] [place], [address] T PROT 7.1 g/dL Normal 5.9-8.4 [facility] Comment on above: Performed By: #### L 500.4050, L501.9520, L501.9060 ####[facility] [address] [place], [address] Urea nitrogen [Mass/Vol] 9 mg/dL Normal 4-19 [facility] Comment on above: Performed By: #### L 500.4050, L501.9520, L501.9060 ####[facility] [address] [place], [place], [id number] GFR/1.73 sq M.predicted janet g non-blacks MDRD (S/P/Bld) [Vol rate/Area]Ordered By: Karina Guerra on 05-23-2024 Estimated GFR (MDRD) Non-Af Amer 130 >60 [facility] Comment on above: mL/min/1.73m2 CKD-EP I Creatinine Equation (2020) Glomerular filtration rate ( GFR) estimation/1.73 sq m using serum, plasma, or whole bOrdered By: Karina Guerra on 05-23-2024 GFR/1.73 sq M.predicted among non-blacks MDRD (S/P/Bld) [Vol rate/Area] 130 mL/min/{1.73_m2} >60 [facility] Comment on above: mL/min/1.73m2 CKD-EP I Creatinine Equation (2020) Laboratory - Chemistry and C hemistry - challengeOrdered By: Karina Guerra on 05-23-2024 AST [Catalytic activity/Vol] 23 U/L <32 [facility] Lithiumon 05-23-2024 LI 0.64 mmol/L Normal 0.60-1.20 [facility] Comment on above: Order Comment: [id number] Performed By: #### L 500.4050, L501.9520, L501.9060 ####[facility] [address] [place], [place], [address] [place] levelOrdered By: Debora Guerra on 05-23-2024 [place] Level 0.64 mmol/L 0.60-1.20 [facility] Potassium (Unsp spec) [Mass/ Vol]Ordered By: Karina Guerra on 05-23-2024 Potassium [Moles/Vol] 4.2 mmol/L 3.3-5.1 [facility] Potassium measurement (mass/ volume)Ordered By: Karina Guerra on 05-23-2024 Potassium (Unsp spec) [Mass/Vol] 4.2 mmol/L 3.3-5.1 [facility] Serum creatinine measurement (mass/volume)Ordered By: Karina Guerra on 05-23-2024 Creatinine [Mass/Vol] 0.53 mg/dL Low 0.70-1.20 [facility] Serum globulin measurementOr dered By: Karina Guerra on 05-23-2024 Globulin (S) [Mass/Vol] 3.4 g/dL 2.2-4.2 [facility] Serum glucose measurement (m ass/volume)Ordered By: Karina Guerra on 05-23-2024 Glucose [Mass/Vol] 114 mg/dL High 70-99 [facility] Serum or plasma alanine godinez otransferase (ALT) measurementOrdered By: Karina Guerra on 05-23-2024 ALT [Catalytic activity/Vol] 32 U/L <35 [facility] Serum or plasma albumin cherelle urement (mass/volume)Ordered By: Karina Guerra on 05-23-2024 Albumin [Mass/Vol] 3.8 g/dL 3.5-5.0 [facility] Serum or plasma albumin/glob ulin mass ratioOrdered By: Karina Guerra on 05-23-2024 Albumin/Globulin [Mass ratio] 1.1 {ratio} 0.9-2.4 [facility] Serum or plasma alkaline rohit sphatase measurementOrdered By: Karina Guerra on 05-23-2024 ALP [Catalytic activity/Vol] 58 U/L 35-104 [facility] Serum or plasma calcium cherelle urement (mass/volume)Ordered By: Karina Guerra on 05-23-2024 Calcium [Mass/Vol] 9.4 mg/dL 7.6-11.0 [facility] Serum or plasma urea nitroge n measurement (mass/volume)Ordered By: Karina Guerra on 05-23-2024 Urea nitrogen [Mass/Vol] 9 mg/dL 4-19 [facility] Sodium levelOrdered By: Mary Guerra on 05-23-2024 Sodium [Moles/Vol] 138 mmol/L 133-145 [facility] TSH DL <= 0.005 mIU/L QnOrde red By: Karina Guerra on 05-23-2024 Thyroid Stimulating Hormone (TSH) 2.310 uIU/mL 0.300-4.200 [facility] TSH Qn 2.310 uIU/mL 0.300-4.200 [facility] Thyroid Stim Hormone (TSH)on 05-23-2024 TSH 2.310 uIU/mL Normal 0.300-4.200 [facility] Comment on above: Performed By: #### L 500.4050, L501.9520, L501.9060 ####[facility] [address] [place], [place], [address] Total proteinOrdered By: Debora Guerra on 05-23-2024 Protein [Mass/Vol] 7.1 g/dL 5.9-8.4 [facility] Emergency Department Summary on 05-15-2024 Emergency Department Summary Normal [facility] L499.0043on 05-15-2024 Trop T High Sen Normal <=14 [facility] Comment on above: Result Comment: Canc elled via OM: Order cancelled - Patient discharged Performed By: #### L 499.0043 ####[facility] [address] [place], [place], [id number] 12 Lead EKGon 05-14-2024 12 Lead EKG Normal [facility] Absolute lymphocyte countOrd ered By: ED PROVIDER on 05-14-2024 Lymphocytes Auto (Unsp spec) [#/Vol] 2.55 10*3/uL 0.83-4.51 [facility] Absolute neutrophil countOrd ered By: ED PROVIDER on 05-14-2024 Neutrophils (Bld) [#/Vol] 4.8 10*3/uL 2.0-7.7 [facility] Anion gap in Serum or Plasma Ordered By: Stan Lin on 05-14-2024 Anion gap [Moles/Vol] 11 mmol/L 5-15 [facility] Automated lymphocyte count a s percentage of total leukocytesOrdered By: ED PROVIDER on 05-14-2024 Lymphocytes/100 WBC Auto (Unsp spec) 31.2 % 19-41 [facility] BUN/creatinine ratioOrdered By: Stan Lin on 05-14-2024 Urea nitrogen/Creatinine [Mass ratio] 20.0 mg/mg - [facility] Basic Metabolic Profile (BMP )on 05-14-2024 BUN/CRE 20.0 RATIO Normal 12-08 [facility] Comment on above: Performed By: #### L 501.4021, L100.0100, L500.2500 ####[facility] [address] [place], [address] Calcium [Mass/Vol] 9.5 mg/dL Normal 7.6-11.0 [facility] Comment on above: Performed By: #### L 501.4021, L100.0100, L500.2500 ####[facility] [address] [place], [address] Chloride [Moles/Vol] 105 mmol/L Normal 98-108 [facility] Comment on above: Performed By: #### L 501.4021, L100.0100, L500.2500 ####[facility] [address] [place], [address] CO2 [Moles/Vol] 20.5 mmol/L Low 21.0-32.0 [facility] Comment on above: Performed By: #### L 501.4021, L100.0100, L500.2500 ####[facility] [address] [place], [address] Creatinine [Mass/Vol] 0.73 mg/dL Normal 0.70-1.20 [facility] Comment on above: Performed By: #### L 501.4021, L100.0100, L500.2500 ####[facility] [address] [place], [address] ECRCL 161.90 ml/min Normal 50-250 [facility] Comment on above: Performed By: #### L 501.4021, L100.0100, L500.2500 ####[facility] [address] [place], [address] GAP 11 Normal 5-15 [facility] Comment on above: Performed By: #### L 501.4021, L100.0100, L500.2500 ####[facility] [address] [place], [address] GFR/1.73 sq M.predicted among non-blacks MDRD (S/P/Bld) [Vol rate/Area] 116 mL/min/{1.73_m2} Normal >60 [facility] Comment on above: Result Comment: mL/m in/1.73m2 CKD-EPI Creatinine Equation (2020) Performed By: #### L 501.4021, L100.0100, L500.2500 ####[facility] [address] [place], [address] Glucose [Mass/Vol] 124 mg/dL High 70-99 [facility] Comment on above: Performed By: #### L 501.4021, L100.0100, L500.2500 ####[facility] [address] [place], [address] Potassium [Moles/Vol] 4.1 mmol/L Normal 3.3-5.1 [facility] Comment on above: Performed By: #### L 501.4021, L100.0100, L500.2500 ####[facility] [address] [place], [address] Sodium [Moles/Vol] 136 mmol/L Normal 133-145 [facility] Comment on above: Performed By: #### L 501.4021, L100.0100, L500.2500 ####[facility] [address] [place], [address] Urea nitrogen [Mass/Vol] 15 mg/dL Normal 4-19 [facility] Comment on above: Performed By: #### L 501.4021, L100.0100, L500.2500 ####[facility] [address] [place], [address] Basophil percentageOrdered B y: ED PROVIDER on 05-14-2024 Basophils/100 WBC (Bld) 0.4 % 0-1 [facility] CBC W/Diff, Automatedon 04-20 Absolute Lymph 2.55 X10 3/uL Normal 0.83-4.51 [facility] Comment on above: Performed By: #### L 501.4021, L100.0100, L500.2500 ####[facility] [address] [place], [address] Absolute Neut 4.8 X10 3/uL Normal 2.0-7.7 [facility] Comment on above: Performed By: #### L 501.4021, L100.0100, L500.2500 ####[facility] [address] [place], [address] Basophils/100 WBC (Bld) 0.4 % Normal 0-1 [facility] Comment on above: Performed By: #### L 501.4021, L100.0100, L500.2500 ####[facility] [address] [place], [address] Eosinophils/100 WBC (Bld) 0.4 % Normal 0-5 [facility] Comment on above: Performed By: #### L 501.4021, L100.0100, L500.2500 ####[facility] [address] [place], [address] Erythrocyte distribution width (RBC) [Ratio] 14.5 % Normal 11.6-14.6 [facility] Comment on above: Performed By: #### L 501.4021, L100.0100, L500.2500 ####[facility] [address] [place], [address] Hematocrit (Bld) [Volume fraction] 39.4 % Normal 37-47 [facility] Comment on above: Performed By: #### L 501.4021, L100.0100, L500.2500 ####[facility] [address] [place], [address] Hemoglobin (Bld) [Mass/Vol] 12.7 g/dL Normal 12.0-15.0 [facility] Comment on above: Performed By: #### L 501.4021, L100.0100, L500.2500 ####[facility] [address] [place], [address] IG% 0.100 Normal 0.0-0.9 [facility] Comment on above: Result Comment: IG% - Immature Granulocytes (promyelocytes, myelocytes andmetamyelocytes) > 1% indicates that a LEFT SHIFT is Present. Performed By: #### L 501.4021, L100.0100, L500.2500 ####[facility] [address] [place], [address] Lymphocytes/100 WBC (Bld) 31.2 % Normal 19-41 [facility] Comment on above: Performed By: #### L 501.4021, L100.0100, L500.2500 ####[facility] [address] [place], [address] MCH (RBC) [Entitic mass] 26.9 pg Low 27.0-32.0 [facility] Comment on above: Performed By: #### L 501.4021, L100.0100, L500.2500 ####[facility] [address] [place], [address] MCHC (RBC) [Mass/Vol] 32.2 g/dL Normal 32-36 [facility] Comment on above: Performed By: #### L 501.4021, L100.0100, L500.2500 ####[facility] [address] [place], [address] MCV (RBC) [Entitic vol] 83.5 fL Normal 81-99 [facility] Comment on above: Performed By: #### L 501.4021, L100.0100, L500.2500 ####[facility] [address] [place], [address] Monocytes/100 WBC (Bld) 9.0 % Normal 0-10 [facility] Comment on above: Performed By: #### L 501.4021, L100.0100, L500.2500 ####[facility] [address] [place], [address] Neutrophils/100 WBC (Bld) 58.9 % Normal 47-70 [facility] Comment on above: Performed By: #### L 501.4021, L100.0100, L500.2500 ####[facility] [address] [place], [address] Nucleated RBC (Bld) [#/Vol] 0 10*3/uL Normal 0-5 [facility] Comment on above: Performed By: #### L 501.4021, L100.0100, L500.2500 ####[facility] [address] [place], [address] Platelet mean volume (Bld) [Entitic vol] 9.0 fL Normal 6.2-12.0 [facility] Comment on above: Performed By: #### L 501.4021, L100.0100, L500.2500 ####[facility] [address] [place], [address] Platelets (Bld) [#/Vol] 374 10*3/uL Normal 150-450 [facility] Comment on above: Performed By: #### L 501.4021, L100.0100, L500.2500 ####[facility] [address] [place], [address] RBC (Bld) [#/Vol] 4.72 10*6/uL Normal 4.2-5.4 [facility] Comment on above: Performed By: #### L 501.4021, L100.0100, L500.2500 ####[facility] [address] [place], [address] RDW SD 43.8 fl Normal 35.1-43.9 [facility] Comment on above: Performed By: #### L 501.4021, L100.0100, L500.2500 ####[facility] [address] [place], [address] WBC (Bld) [#/Vol] 8.2 10*3/uL Normal 4.4-11.0 [facility] Comment on above: Performed By: #### L 501.4021, L100.0100, L500.2500 ####[facility] [address] [place], [address] Carbon dioxide, total [Moles /volume] in Central venous bloodOrdered By: Stan Lin on 05-14-2024 CO2 [Moles/Vol] 20.5 mmol/L Low 21.0-32.0 [facility] Chest 1 View (Portable)on Chest 1 View (Portable) Normal [facility] Chloride assayOrdered By: Doroteo Lin on 05-14-2024 Chloride [Moles/Vol] 105 mmol/L 98-108 [facility] Eosinophil percentageOrdered By: ED PROVIDER on 05-14-2024 Eosinophils/100 WBC (Bld) 0.4 % 0-5 [facility] Erythrocyte distribution wid th ratioOrdered By: ED PROVIDER on 05-14-2024 Erythrocyte distribution width (RBC) [Ratio] 14.5 % 11.6-14.6 [facility] Erythrocyte distribution wid th standard deviationOrdered By: ED PROVIDER on 05-14-2024 Erythrocyte distribution width (RBC) [Entitic vol] 43.8 fL 35.1-43.9 [facility] Erythrocyte distribution width (RBC) [Ratio] 43.8 fl 35.1-43.9 [facility] Estimation of creatinine thad aranceOrdered By: Stan Lin on 05-14-2024 Estimated Creatinine Clearance Calc 161.90 ml/min 50-250 [facility] GFR/1.73 sq M.predicted janet g non-blacks MDRD (S/P/Bld) [Vol rate/Area]Ordered By: Stan Lin on 05-14-2024 Estimated GFR (MDRD) Non-Af Amer 116 >60 [facility] Comment on above: mL/min/1.73m2 CKD-EP I Creatinine Equation (2020) Glomerular filtration rate ( GFR) estimation/1.73 sq m using serum, plasma, or whole bOrdered By: Stan Lin on 05-14-2024 GFR/1.73 sq M.predicted among non-blacks MDRD (S/P/Bld) [Vol rate/Area] 116 mL/min/{1.73_m2} >60 [facility] Comment on above: mL/min/1.73m2 CKD-EP I Creatinine Equation (2020) Hematocrit Auto (Bld) [Volum e fraction]Ordered By: ED PROVIDER on 05-14-2024 Hematocrit (Bld) [Volume fraction] 39.4 % 37-47 [facility] Hemoglobin measurementOrdere d By: ED PROVIDER on 05-14-2024 Hemoglobin (Bld) [Mass/Vol] 12.7 g/dL 12.0-15.0 [facility] Immature granulocytes/100 WB C Auto (Bld)Ordered By: ED PROVIDER on 05-14-2024 Immature granulocytes/100 WBC (Bld) 0.100 % 0.0-0.9 [facility] Comment on above: IG% - Immature Granu locytes (promyelocytes, myelocytes and metamyelocytes) > 1% indicates that a LEFT SHIFT is Present. L499.0042on 05-14-2024 Trop T High Sen < 6 Normal <=14 [facility] Comment on above: Performed By: #### L 499.0042 ####[facility] [address] [place], [address] L501.4021on 05-14-2024 Trop T High Sen < 6 Normal <=14 [facility] Comment on above: Performed By: #### L 501.4021, L100.0100, L500.2500 ####[facility] [address] [place], [address] Lymphocytes Auto (Unsp spec) [#/Vol]Ordered By: ED PROVIDER on 05-14-2024 Lymphocytes (Bld) [#/Vol] 2.55 10*3/uL 0.83-4.51 [facility] Lymphocytes/100 WBC Auto (Un sp spec)Ordered By: ED PROVIDER on 05-14-2024 Lymphocytes/100 WBC (Bld) 31.2 % 19-41 [facility] MCV (mean corpuscular volume ) determinationOrdered By: ED PROVIDER on 05-14-2024 MCV (RBC) [Entitic vol] 83.5 fL 81-99 [facility] Mean corpuscular hemoglobin (MCH) determinationOrdered By: ED PROVIDER on 05-14-2024 MCH (RBC) [Entitic mass] 26.9 pg Low 27.0-32.0 [facility] Mean corpuscular hemoglobin concentration (MCHC) determinationOrdered By: ED PROVIDER on 05-14-2024 MCHC (RBC) [Mass/Vol] 32.2 g/dL 32-36 [facility] Mean platelet volume determi nationOrdered By: ED PROVIDER on 05-14-2024 Platelet mean volume (Bld) [Entitic vol] 9.0 fL 6.2-12.0 [facility] Monocyte percentageOrdered B y: ED PROVIDER on 05-14-2024 Monocytes/100 WBC (Bld) 9.0 % 0-10 [facility] Neutrophil percentageOrdered By: ED PROVIDER on 05-14-2024 Neutrophils/100 WBC (Bld) 58.9 % 47-70 [facility] No Panel InformationOrdered By: ED PROVIDER on 05-14-2024 Troponin T High Sensitivity < 6 ng/L <14 [facility] Nucleated red blood cell per centageOrdered By: ED PROVIDER on 05-14-2024 Nucleated RBC/100 WBC (Bld) [Ratio] 0 % 0-5 [facility] Platelet countOrdered By: ED PROVIDER on 05-14-2024 Platelets (Bld) [#/Vol] 374 10*3/uL 150-450 [facility] Potassium (Unsp spec) [Mass/ Vol]Ordered By: Stan Lin on 05-14-2024 Potassium [Moles/Vol] 4.1 mmol/L 3.3-5.1 [facility] Potassium measurement (mass/ volume)Ordered By: Stan Lin on 05-14-2024 Potassium (Unsp spec) [Mass/Vol] 4.1 mmol/L 3.3-5.1 [facility] RBC Auto (Bld) [#/Vol]Ordere d By: ED PROVIDER on 05-14-2024 RBC (Bld) [#/Vol] 4.72 10*6/uL 4.2-5.4 [facility] Serum creatinine measurement (mass/volume)Ordered By: Stan Lin on 05-14-2024 Creatinine [Mass/Vol] 0.73 mg/dL 0.70-1.20 [facility] Serum glucose measurement (m ass/volume)Ordered By: Stan Lin on 05-14-2024 Glucose [Mass/Vol] 124 mg/dL High 70-99 [facility] Serum or plasma calcium cherelle urement (mass/volume)Ordered By: Stan Lin on 05-14-2024 Calcium [Mass/Vol] 9.5 mg/dL 7.6-11.0 [facility] Serum or plasma urea nitroge n measurement (mass/volume)Ordered By: Stan Lin on 05-14-2024 Urea nitrogen [Mass/Vol] 15 mg/dL 4-19 [facility] Sodium levelOrdered By: Jeanne Lin on 05-14-2024 Sodium [Moles/Vol] 136 mmol/L 133-145 [facility] Troponin T.cardiac High sens itivity method [Mass/Vol]Ordered By: Stan Lin on 05-14-2024 Troponin T High Sensitivity 2 Hour < 6 ng/L <14 [facility] Troponin T.cardiac [Mass/vol ume] in Serum or Plasma by High sensitivity methodOrdered By: Stan Lin on 05-14-2024 Troponin T.cardiac High sensitivity method [Mass/Vol] < 6 ng/L <14 [facility] White blood cell (WBC) count Ordered By: ED PROVIDER on 05-14-2024 WBC (Bld) [#/Vol] 8.2 10*3/uL 4.4-11.0 [facility] Abdomen/Pelvis W IV Cont ONL Yon 05-08-2024 Abdomen/Pelvis W IV Cont ONLY Normal [facility] Absolute lymphocyte countOrd ered By: Stan Lin on 05-08-2024 Lymphocytes Auto (Unsp spec) [#/Vol] 2.37 10*3/uL 0.83-4.51 [facility] Absolute neutrophil countOrd ered By: Stan Lin on 05-08-2024 Neutrophils (Bld) [#/Vol] 4.5 10*3/uL 2.0-7.7 [facility] Anion gap in Serum or Plasma Ordered By: Stan Lin on 05-08-2024 Anion gap [Moles/Vol] 8 mmol/L 5-15 [facility] Automated lymphocyte count a s percentage of total leukocytesOrdered By: Stan Lin on 05-08-2024 Lymphocytes/100 WBC Auto (Unsp spec) 30.5 % 19- [facility] BUN/creatinine ratioOrdered By: Stan Lin on 05-08-2024 Urea nitrogen/Creatinine [Mass ratio] 26.4 mg/mg High 10- [facility] Basophil percentageOrdered B y: Stan Lin on 05-08-2024 Basophils/100 WBC (Bld) 0.3 % 0-1 [facility] Beta HCG ( test) Ql Ordered By: Stan Lin on 05-08-2024 Serum Test, Qualitative Negative [facility] Bilirubin Test strip Ql (U)O rdered By: Stan Lin on 05-08-2024 Bilirubin Ql (U) Negative Negative [facility] Bilirubin, totalOrdered By: Stan Lin on 05-08-2024 Bilirubin [Mass/Vol] 0.21 mg/dL 0.00-1.30 [facility] CBC W/Diff, Automatedon 04-20 Absolute Lymph 2.37 X10 3/uL Normal 0.83-4.51 [facility] Comment on above: Performed By: #### L 500.4050, L100.0100, L501.2450, L700.6800 ####[facility] [address] [place], [address] Absolute Neut 4.5 X10 3/uL Normal 2.0-7.7 [facility] Comment on above: Performed By: #### L 500.4050, L100.0100, L501.2450, L700.6800 ####[facility] [address] [place], [address] Basophils/100 WBC (Bld) 0.3 % Normal 0-1 [facility] Comment on above: Performed By: #### L 500.4050, L100.0100, L501.2450, L700.6800 ####[facility] [address] [place], [address] Eosinophils/100 WBC (Bld) 0.5 % Normal 0-5 [facility] Comment on above: Performed By: #### L 500.4050, L100.0100, L501.2450, L700.6800 ####[facility] [address] [place], [address] Erythrocyte distribution width (RBC) [Ratio] 14.1 % Normal 11.6-14.6 [facility] Comment on above: Performed By: #### L 500.4050, L100.0100, L501.2450, L700.6800 ####[facility] [address] [place], [address] Hematocrit (Bld) [Volume fraction] 37.3 % Normal 37-47 [facility] Comment on above: Performed By: #### L 500.4050, L100.0100, L501.2450, L700.6800 ####[facility] [address] [place], [address] Hemoglobin (Bld) [Mass/Vol] 12.5 g/dL Normal 12.0-15.0 [facility] Comment on above: Performed By: #### L 500.4050, L100.0100, L501.2450, L700.6800 ####[facility] [address] [place], [address] IG% 0.300 Normal 0.0-0.9 [facility] Comment on above: Result Comment: IG% - Immature Granulocytes (promyelocytes, myelocytes andmetamyelocytes) > 1% indicates that a LEFT SHIFT is Present. Performed By: #### L 500.4050, L100.0100, L501.2450, L700.6800 ####[facility] [address] [place], [address] Lymphocytes/100 WBC (Bld) 30.5 % Normal 19-41 [facility] Comment on above: Performed By: #### L 500.4050, L100.0100, L501.2450, L700.6800 ####[facility] [address] [place], [address] MCH (RBC) [Entitic mass] 27.9 pg Normal 27.0-32.0 [facility] Comment on above: Performed By: #### L 500.4050, L100.0100, L501.2450, L700.6800 ####[facility] [address] [place], [address] MCHC (RBC) [Mass/Vol] 33.5 g/dL Normal 32-36 [facility] Comment on above: Performed By: #### L 500.4050, L100.0100, L501.2450, L700.6800 ####[facility] [address] [place], [address] MCV (RBC) [Entitic vol] 83.3 fL Normal 81-99 [facility] Comment on above: Performed By: #### L 500.4050, L100.0100, L501.2450, L700.6800 ####[facility] [address] [place], [address] Monocytes/100 WBC (Bld) 10.3 % High 0-10 [facility] Comment on above: Performed By: #### L 500.4050, L100.0100, L501.2450, L700.6800 ####[facility] [address] [place], [address] Neutrophils/100 WBC (Bld) 58.1 % Normal 47-70 [facility] Comment on above: Performed By: #### L 500.4050, L100.0100, L501.2450, L700.6800 ####[facility] [address] [place], [address] Nucleated RBC (Bld) [#/Vol] 0 10*3/uL Normal 0-5 [facility] Comment on above: Performed By: #### L 500.4050, L100.0100, L501.2450, L700.6800 ####[facility] [address] [place], [address] Platelet mean volume (Bld) [Entitic vol] 9.0 fL Normal 6.2-12.0 [facility] Comment on above: Performed By: #### L 500.4050, L100.0100, L501.2450, L700.6800 ####[facility] [address] [place], [address] Platelets (Bld) [#/Vol] 356 10*3/uL Normal 150-450 [facility] Comment on above: Performed By: #### L 500.4050, L100.0100, L501.2450, L700.6800 ####[facility] [address] [place], [address] RBC (Bld) [#/Vol] 4.48 10*6/uL Normal 4.2-5.4 [facility] Comment on above: Performed By: #### L 500.4050, L100.0100, L501.2450, L700.6800 ####[facility] [address] [place], [address] RDW SD 43.0 fl Normal 35.1-43.9 [facility] Comment on above: Performed By: #### L 500.4050, L100.0100, L501.2450, L700.6800 ####[facility] [address] [place], [address] WBC (Bld) [#/Vol] 7.8 10*3/uL Normal 4.4-11.0 [facility] Comment on above: Performed By: #### L 500.4050, L100.0100, L501.2450, L700.6800 ####[facility] [address] [place], [address] Carbon dioxide, total [Moles /volume] in Central venous bloodOrdered By: Stan Lin on 05-08-2024 CO2 [Moles/Vol] 23.9 mmol/L 21.0-32.0 [facility] Chloride assayOrdered By: Doroteo Lin on 05-08-2024 Chloride [Moles/Vol] 107 mmol/L 98-108 [facility] Comprehensive Metabolic Prof ilon 05-08-2024 Albumin [Mass/Vol] 3.9 g/dL Normal 3.5-5.0 [facility] Comment on above: Performed By: #### L 500.4050, L100.0100, L501.2450, L700.6800 ####[facility] [address] [place], [address] Albumin/Globulin [Mass ratio] 1.4 {ratio} Normal 0.9-2.4 [facility] Comment on above: Performed By: #### L 500.4050, L100.0100, L501.2450, L700.6800 ####[facility] [address] [place], [address] ALK PHOS 60 U/L Normal 35-104 [facility] Comment on above: Performed By: #### L 500.4050, L100.0100, L501.2450, L700.6800 ####[facility] [address] [place], [address] ALT [Catalytic activity/Vol] 26 U/L Normal <=34 [facility] Comment on above: Performed By: #### L 500.4050, L100.0100, L501.2450, L700.6800 ####[facility] [address] [place], [address] AST [Catalytic activity/Vol] 14 U/L Normal <=31 [facility] Comment on above: Performed By: #### L 500.4050, L100.0100, L501.2450, L700.6800 ####[facility] [address] [place], [address] Bilirubin [Mass/Vol] 0.21 mg/dL Normal 0.00-1.30 [facility] Comment on above: Performed By: #### L 500.4050, L100.0100, L501.2450, L700.6800 ####[facility] [address] [place], [address] BUN/CRE 26.4 RATIO High 10-20 [facility] Comment on above: Performed By: #### L 500.4050, L100.0100, L501.2450, L700.6800 ####[facility] [address] [place], [address] Calcium [Mass/Vol] 9.2 mg/dL Normal 7.6-11.0 [facility] Comment on above: Performed By: #### L 500.4050, L100.0100, L501.2450, L700.6800 ####[facility] [address] [place], [address] Chloride [Moles/Vol] 107 mmol/L Normal 98-108 [facility] Comment on above: Performed By: #### L 500.4050, L100.0100, L501.2450, L700.6800 ####[facility] [address] [place], [address] CO2 [Moles/Vol] 23.9 mmol/L Normal 21.0-32.0 [facility] Comment on above: Performed By: #### L 500.4050, L100.0100, L501.2450, L700.6800 ####[facility] [address] [place], [address] Creatinine [Mass/Vol] 0.48 mg/dL Low 0.70-1.20 [facility] Comment on above: Performed By: #### L 500.4050, L100.0100, L501.2450, L700.6800 ####[facility] [address] [place], [address] ECRCL 243.10 ml/min Normal 50-250 [facility] Comment on above: Performed By: #### L 500.4050, L100.0100, L501.2450, L700.6800 ####[facility] [address] [place], [address] GAP 8 Normal 5-15 [facility] Comment on above: Performed By: #### L 500.4050, L100.0100, L501.2450, L700.6800 ####[facility] [address] [place], [address] GFR/1.73 sq M.predicted among non-blacks MDRD (S/P/Bld) [Vol rate/Area] 133 mL/min/{1.73_m2} Normal >60 [facility] Comment on above: Result Comment: mL/m in/1.73m2 CKD-EPI Creatinine Equation (2020) Performed By: #### L 500.4050, L100.0100, L501.2450, L700.6800 ####[facility] [address] [place], [address] Globulin (S) [Mass/Vol] 2.7 g/dL Normal 2.2-4.2 [facility] Comment on above: Performed By: #### L 500.4050, L100.0100, L501.2450, L700.6800 ####[facility] [address] [place], [address] Glucose [Mass/Vol] 107 mg/dL High 70-99 [facility] Comment on above: Performed By: #### L 500.4050, L100.0100, L501.2450, L700.6800 ####[facility] [address] [place], [address] Potassium [Moles/Vol] 4.0 mmol/L Normal 3.3-5.1 [facility] Comment on above: Performed By: #### L 500.4050, L100.0100, L501.2450, L700.6800 ####[facility] [address] [place], [address] Sodium [Moles/Vol] 139 mmol/L Normal 133-145 [facility] Comment on above: Performed By: #### L 500.4050, L100.0100, L501.2450, L700.6800 ####[facility] [address] [place], [address] T PROT 6.6 g/dL Normal 5.9-8.4 [facility] Comment on above: Performed By: #### L 500.4050, L100.0100, L501.2450, L700.6800 ####[facility] [address] [place], [address] Urea nitrogen [Mass/Vol] 13 mg/dL Normal 4-19 [facility] Comment on above: Performed By: #### L 500.4050, L100.0100, L501.2450, L700.6800 ####[facility] [address] [place], [address] Emergency Department Summary on 05-08-2024 Emergency Department Summary Normal [facility] Eosinophil percentageOrdered By: Stan Lin on 05-08-2024 Eosinophils/100 WBC (Bld) 0.5 % 0-5 [facility] Epithelial cells.squamous LM Ql (Urine sed)Ordered By: Stan Lin on 05-08-2024 Epithelial cells.squamous LM.HPF (Urine sed) [#/Area] 0 /[HPF] 5-10 [facility] Erythrocyte distribution wid th ratioOrdered By: Stan Lin on 05-08-2024 Erythrocyte distribution width (RBC) [Ratio] 14.1 % 11.6-14.6 [facility] Erythrocyte distribution wid th standard deviationOrdered By: Stan Lin on 05-08-2024 Erythrocyte distribution width (RBC) [Entitic vol] 43.0 fL 35.1-43.9 [facility] Erythrocyte distribution width (RBC) [Ratio] 43.0 fl 35.1-43.9 [facility] Estimation of creatinine thad aranceOrdered By: Stan Lin on 05-08-2024 Estimated Creatinine Clearance Calc 243.10 ml/min 50-250 [facility] GFR/1.73 sq M.predicted janet g non-blacks MDRD (S/P/Bld) [Vol rate/Area]Ordered By: Stan Lin on 05-08-2024 Estimated GFR (MDRD) Non-Af Amer 133 >60 [facility] Comment on above: mL/min/1.73m2 CKD-EP I Creatinine Equation (2020) Glomerular filtration rate ( GFR) estimation/1.73 sq m using serum, plasma, or whole bOrdered By: Stan Lin on 05-08-2024 GFR/1.73 sq M.predicted among non-blacks MDRD (S/P/Bld) [Vol rate/Area] 133 mL/min/{1.73_m2} >60 [facility] Comment on above: mL/min/1.73m2 CKD-EP I Creatinine Equation (2020) Glucose Ql (U)Ordered By: Doroteo Lin on 05-08-2024 Urine Glucose (UA) Normal mg/dl Normal [facility] Hematocrit Auto (Bld) [Volum e fraction]Ordered By: Stan Lin on 05-08-2024 Hematocrit (Bld) [Volume fraction] 37.3 % 37-47 [facility] Hemoglobin measurementOrdere d By: Stan Lin on 05-08-2024 Hemoglobin (Bld) [Mass/Vol] 12.5 g/dL 12.0-15.0 [facility] Immature granulocytes/100 WB C Auto (Bld)Ordered By: Stan Lin on 05-08-2024 Immature granulocytes/100 WBC (Bld) 0.300 % 0.0-0.9 [facility] Comment on above: IG% - Immature Granu locytes (promyelocytes, myelocytes and metamyelocytes) > 1% indicates that a LEFT SHIFT is Present. Ketones Test strip Ql (U)Ord ered By: Stan Lin on 05-08-2024 Ketones Ql (U) Negative Negative [facility] Laboratory - Chemistry and C hemistry - challengeOrdered By: Stan Lin on 05-08-2024 AST [Catalytic activity/Vol] 14 U/L <32 [facility] Lipaseon 05-08-2024 Lipase [Catalytic activity/Vol] 32 U/L Normal 13-75 [facility] Comment on above: Result Comment: Kyle kimble note:LIPASE revised reference range effective 22.New Lipase methodology. Expected to produce lower valuesthan the previous assay method.NEW Reference Range: 13 - 75 U/L Performed By: #### L 500.4050, L100.0100, L501.2450, L700.6800 ####[facility] [address] [place], [address] Lipase measurementOrdered By : Stan Lin on 05-08-2024 Lipase [Catalytic activity/Vol] 32 U/L 13-75 [facility] Comment on above: Please note:LIPASE r evised reference range effective 22. New Lipase methodology. Expected to produce lower values than the previous assay method. NEW Reference Range: 13 - 75 U/L Lymphocytes Auto (Unsp spec) [#/Vol]Ordered By: Stan Lin on 05-08-2024 Lymphocytes (Bld) [#/Vol] 2.37 10*3/uL 0.83-4.51 [facility] Lymphocytes/100 WBC Auto (Un sp spec)Ordered By: Stan Lin on 05-08-2024 Lymphocytes/100 WBC (Bld) 30.5 % 19-41 [facility] MCV (mean corpuscular volume ) determinationOrdered By: Stan Lin on 05-08-2024 MCV (RBC) [Entitic vol] 83.3 fL 81-99 [facility] Mean corpuscular hemoglobin (MCH) determinationOrdered By: Stan Lin on 05-08-2024 MCH (RBC) [Entitic mass] 27.9 pg 27.0-32.0 [facility] Mean corpuscular hemoglobin concentration (MCHC) determinationOrdered By: Stan Lin on 05-08-2024 MCHC (RBC) [Mass/Vol] 33.5 g/dL 32-36 [facility] Comment on above: Delta: 31.7 on 05/07 Mean platelet volume determi nationOrdered By: Stan Lin on 05-08-2024 Platelet mean volume (Bld) [Entitic vol] 9.0 fL 6.2-12.0 [facility] Microscopic analysis of urin e for red blood cells (RBC)Ordered By: Stan Lin on 05-08-2024 Microscopic analysis of urine for red blood cells (RBC) 0-5 SEEN /hpf 0-5 [facility] Urine RBC 0-5 SEEN /hpf 0-5 [facility] Monocyte percentageOrdered B y: Stan Lin on 05-08-2024 Monocytes/100 WBC (Bld) 10.3 % High 0-10 [facility] Mucus LM Ql (Urine sed)Order ed By: Stan Lin on 05-08-2024 Mucus Ql (Urine sed) 0 SEEN /hpf [facility] Neutrophil percentageOrdered By: Stan Lin on 05-08-2024 Neutrophils/100 WBC (Bld) 58.1 % 47-70 [facility] Nitrite Test strip Ql (U)Ord ered By: Stan Lin on 05-08-2024 Nitrite Ql (U) Negative Negative [facility] Nucleated red blood cell per centageOrdered By: Stan Lni on 05-08-2024 Nucleated RBC/100 WBC (Bld) [Ratio] 0 % 0-5 [facility] Platelet countOrdered By: Doroteo Lin on 05-08-2024 Platelets (Bld) [#/Vol] 356 10*3/uL 150-450 [facility] Potassium (Unsp spec) [Mass/ Vol]Ordered By: Stan Lin on 05-08-2024 Potassium [Moles/Vol] 4.0 mmol/L 3.3-5.1 [facility] Potassium measurement (mass/ volume)Ordered By: Stan Lin on 05-08-2024 Potassium (Unsp spec) [Mass/Vol] 4.0 mmol/L 3.3-5.1 [facility] ,Serum,hCG Quali.on 05-08-2024 HCG, SERUM QUAL Negative Normal [facility] Comment on above: Performed By: #### L 500.4050, L100.0100, L501.2450, L700.6800 ####[facility] [address] [facility] [place], [address] Protein Test strip Ql (U)Ord ered By: Stan Lin on 05-08-2024 Protein Ql (U) 15 mg/dl High Negative [facility] RBC Auto (Bld) [#/Vol]Ordere d By: Stan Lin on 05-08-2024 RBC (Bld) [#/Vol] 4.48 10*6/uL 4.2-5.4 [facility] Serum beta-hCG test, qualita tiveOrdered By: Stan Lin on 05-08-2024 Beta HCG ( test) Ql Negative [facility] Serum creatinine measurement (mass/volume)Ordered By: Stan Lin on 05-08-2024 Creatinine [Mass/Vol] 0.48 mg/dL Low 0.70-1.20 [facility] Serum globulin measurementOr dered By: Stan Lin on 05-08-2024 Globulin (S) [Mass/Vol] 2.7 g/dL 2.2-4.2 [facility] Serum glucose measurement (m ass/volume)Ordered By: Stan Lin on 05-08-2024 Glucose [Mass/Vol] 107 mg/dL High 70-99 [facility] Serum or plasma alanine godinez otransferase (ALT) measurementOrdered By: Stan Lin on 05-08-2024 ALT [Catalytic activity/Vol] 26 U/L <35 [facility] Serum or plasma albumin cherelle urement (mass/volume)Ordered By: Stan Lin on 05-08-2024 Albumin [Mass/Vol] 3.9 g/dL 3.5-5.0 [facility] Serum or plasma albumin/glob ulin mass ratioOrdered By: Stan Lin on 05-08-2024 Albumin/Globulin [Mass ratio] 1.4 {ratio} 0.9-2.4 [facility] Serum or plasma alkaline rohit sphatase measurementOrdered By: Stan Lin on 05-08-2024 ALP [Catalytic activity/Vol] 60 U/L 35-104 [facility] Serum or plasma calcium cherelle urement (mass/volume)Ordered By: Stan Lin on 05-08-2024 Calcium [Mass/Vol] 9.2 mg/dL 7.6-11.0 [facility] Serum or plasma urea nitroge n measurement (mass/volume)Ordered By: Stan Lin on 05-08-2024 Urea nitrogen [Mass/Vol] 13 mg/dL 4-19 [facility] Sodium levelOrdered By: Jeanne Lin on 05-08-2024 Sodium [Moles/Vol] 139 mmol/L 133-145 [facility] Squamous epithelial cells de tection in urine sediment by light microscopyOrdered By: Stan Lin on 05-08-2024 Epithelial cells.squamous LM Ql (Urine sed) 0-5 SEEN /hpf 5-10 [facility] Total proteinOrdered By: Bhargav Lin on 05-08-2024 Protein [Mass/Vol] 6.6 g/dL 5.9-8.4 [facility] Transitional cells LM Ql (Ur ine sed)Ordered By: Stan Lin on 05-08-2024 Urine Transitional Epithelial Cells 0-5 SEEN /hpf 0-5 [facility] Transitional cells detection in urine sediment by light microscopyOrdered By: tSan Lin on 05-08-2024 Transitional cells LM Ql (Urine sed) 0-5 SEEN /hpf 0-5 [facility] Urinalysis, Completeon 05-08 WBC 5-10 SEEN Normal 0-5 [facility] Comment on above: Order Comment: SELENA CTOR TO SPECIFY Performed By: #### L 400.0001 ####[facility] [address] [facility] [address] EPI,TRANSITION 0-5 SEEN Normal 0-5 [facility] Comment on above: Order Comment: SELENA CTOR TO SPECIFY Performed By: #### L 400.0001 ####[facility] [address] [place], [address] RBC 0-5 SEEN Normal 0-5 [facility] Comment on above: Order Comment: SELENA CTOR TO SPECIFY Performed By: #### L 400.0001 ####[facility] [address] [place], [address] BACTERIA 1+ /hpf Normal None Seen [facility] Comment on above: Order Comment: SELENA CTOR TO SPECIFY Performed By: #### L 400.0001 ####[facility] [address] [place], [address] EPI,SQUAMOUS 0-5 SEEN Normal 5-10 [facility] Comment on above: Order Comment: SELENA CTOR TO SPECIFY Performed By: #### L 400.0001 ####[facility] [address] [place], [address] Mucus Ql (Urine sed) 0 SEEN Normal [facility] Comment on above: Order Comment: COLLE CTOR TO SPECIFY Performed By: #### L 400.0001 ####[facility] [address] [place], [address] Urine blood detectionOrdered By: Stan Lin on 05-08-2024 Urine Occult Blood 10 /ul High Negative [facility] Urine clarityOrdered By: Bhargav Lin on 05-08-2024 Clarity (U) Clear Clear [facility] Urine color determinationOrd ered By: Stan Lin on 05-08-2024 Color (U) Yellow Yellow [facility] Urine glucose detectionOrder ed By: Stan Lin on 05-08-2024 Glucose Ql (U) Normal mg/dl Normal [facility] Urine leukocyte esterase det ection by dipstickOrdered By: Stan Lin on 05-08-2024 Leukocyte esterase Test strip Ql (U) 25 /ul High Negative [facility] Urine pHOrdered By: Stan patricia on 05-08-2024 pH (U) 7.0 [pH] 5.0 - 8.0 [facility] Urine sediment bacteria coun t by microscopy (number/high power field)Ordered By: Stan Lin on 05-08-2024 Bacteria LM.HPF (Urine sed) [#/Area] 1 /[HPF] None Seen [facility] Urine specific gravity measu rementOrdered By: Stan Lin on 05-08-2024 Specific gravity (U) [Rel density] 1.005 1.002-1.030 [facility] Urine urobilinogen measureme ntOrdered By: Stan Lin on 05-08-2024 Urobilinogen Ql (U) Normal mg/dl Normal [facility] Urobilinogen Ql (U)Ordered B y: Stan Lin on 05-08-2024 Urine Urobilinogen Normal mg/dl Normal [facility] White blood cell (WBC) count Ordered By: Stan Lin on 05-08-2024 WBC (Bld) [#/Vol] 7.8 10*3/uL 4.4-11.0 [facility] White blood cell countOrdere d By: Stan Lin on 05-08-2024 Urine WBC 5-10 SEEN /hpf 0-5 [facility] White blood cell count 5-10 SEEN /hpf 0-5 [facility] Absolute lymphocyte countOrd ered By: Zebulun Beam on 05-07-2024 Lymphocytes Auto (Unsp spec) [#/Vol] 1.95 10*3/uL 0.83-4.51 [facility] Absolute neutrophil countOrd ered By: Zebulun Beam on 05-07-2024 Neutrophils (Bld) [#/Vol] 4.9 10*3/uL 2.0-7.7 [facility] Automated lymphocyte count a s percentage of total leukocytesOrdered By: Zebulun Beam on 05-07-2024 Lymphocytes/100 WBC Auto (Unsp spec) 25.4 % [facility] Basophil percentageOrdered B y: Zebulun Beam on 05-07-2024 Basophils/100 WBC (Bld) 0.5 % 0-1 [facility] CBC W/Diff, Automatedon 04-19 Absolute Lymph 1.95 X10 3/uL Normal 0.83-4.51 [facility] Comment on above: Performed By: #### L 100.0100, L501.9985 ####[facility] [address] [place], [address] Absolute Neut 4.9 X10 3/uL Normal 2.0-7.7 [facility] Comment on above: Performed By: #### L 100.0100, L501.9985 ####[facility] [address] [place], [address] Basophils/100 WBC (Bld) 0.5 % Normal 0-1 [facility] Comment on above: Performed By: #### L 100.0100, L501.9985 ####[facility] [address] [place], [address] Eosinophils/100 WBC (Bld) 0.4 % Normal 0-5 [facility] Comment on above: Performed By: #### L 100.0100, L5.85 ####[facility] [address] [place], [address] Erythrocyte distribution width (RBC) [Ratio] 14.0 % Normal 11.6-14.6 [facility] Comment on above: Performed By: #### L 100.0100, L5.9985 ####[facility] [address] [place], [address] Hematocrit (Bld) [Volume fraction] 40.1 % Normal 37-47 [facility] Comment on above: Performed By: #### L 100.0100, L5.85 ####[facility] [address] [place], [address] Hemoglobin (Bld) [Mass/Vol] 12.7 g/dL Normal 12.0-15.0 [facility] Comment on above: Performed By: #### L 100.0100, L5.9985 ####[facility] [address] [place], [address] IG% 0.300 Normal 0.0-0.9 [facility] Comment on above: Result Comment: IG% - Immature Granulocytes (promyelocytes, myelocytes andmetamyelocytes) > 1% indicates that a LEFT SHIFT is Present. Performed By: #### L 100.0100, L5.85 ####[facility] [address] [place], [address] Lymphocytes/100 WBC (Bld) 25.4 % Normal 19-41 [facility] Comment on above: Performed By: #### L 100.0100, L5.85 ####[facility] [address] [place], [address] MCH (RBC) [Entitic mass] 26.9 pg Low 27.0-32.0 [facility] Comment on above: Performed By: #### L 100.0100, L5.85 ####[facility] [address] [place], [address] MCHC (RBC) [Mass/Vol] 31.7 g/dL Low 32-36 [facility] Comment on above: Performed By: #### L 100.0100, L501.9985 ####[facility] [address] [place], [address] MCV (RBC) [Entitic vol] 85.0 fL Normal 81-99 [facility] Comment on above: Performed By: #### L 100.0100, L5.9985 ####[facility] [address] [place], [address] Monocytes/100 WBC (Bld) 9.1 % Normal 0-10 [facility] Comment on above: Performed By: #### L 100.0100, L5.85 ####[facility] [address] [place], [address] Neutrophils/100 WBC (Bld) 64.3 % Normal 47-70 [facility] Comment on above: Performed By: #### L 100.0100, L501.9985 ####[facility] [address] [place], [address] Nucleated RBC (Bld) [#/Vol] 0 10*3/uL Normal 0-5 [facility] Comment on above: Performed By: #### L 100.0100, L5.9985 ####[facility] [address] [place], [address] Platelet mean volume (Bld) [Entitic vol] 9.4 fL Normal 6.2-12.0 [facility] Comment on above: Performed By: #### L 100.0100, L501.9985 ####[facility] [address] [place], [address] Platelets (Bld) [#/Vol] 380 10*3/uL Normal 150-450 [facility] Comment on above: Performed By: #### L 100.0100, L501.9985 ####[facility] [address] [place], [address] RBC (Bld) [#/Vol] 4.72 10*6/uL Normal 4.2-5.4 [facility] Comment on above: Performed By: #### L 100.0100, L501.9985 ####[facility] [address] [place], [address] RDW SD 43.4 fl Normal 35.1-43.9 [facility] Comment on above: Performed By: #### L 100.0100, L501.9985 ####[facility] [address] [place], [address] WBC (Bld) [#/Vol] 7.7 10*3/uL Normal 4.4-11.0 [facility] Comment on above: Performed By: #### L 100.0100, L501.9985 ####[facility] [address] [place], [address] Eosinophil percentageOrdered By: Zebulun Beam on 05-07-2024 Eosinophils/100 WBC (Bld) 0.4 % 0-5 [facility] Erythrocyte distribution wid th ratioOrdered By: Zebulun Beam on 05-07-2024 Erythrocyte distribution width (RBC) [Ratio] 14.0 % 11.6-14.6 [facility] Erythrocyte distribution wid th standard deviationOrdered By: Zebulun Beam on 05-07-2024 Erythrocyte distribution width (RBC) [Entitic vol] 43.4 fL 35.1-43.9 [facility] Erythrocyte distribution width (RBC) [Ratio] 43.4 fl 35.1-43.9 [facility] Hematocrit Auto (Bld) [Volum e fraction]Ordered By: Zebulun Beam on 05-07-2024 Hematocrit (Bld) [Volume fraction] 40.1 % 37-47 [facility] Hemoglobin A1con 05-07-2024 HbA1c (Bld) [Mass fraction] 5.9 % Normal <=5.6 [facility] Comment on above: Performed By: #### L 100.0100, L501.9985 ####[facility] [address] [place], [address] Hemoglobin A1c percentageOrd ered By: Vazquezbulun Beam on 05-07-2024 HbA1c (Bld) [Mass fraction] 5.9 % >5.7 [facility] Hemoglobin measurementOrdere d By: Vazquezbulun Beam on 05-07-2024 Hemoglobin (Bld) [Mass/Vol] 12.7 g/dL 12.0-15.0 [facility] Immature granulocytes/100 WB C Auto (Bld)Ordered By: kwasilun Beam on 05-07-2024 Immature granulocytes/100 WBC (Bld) 0.300 % 0.0-0.9 [facility] Comment on above: IG% - Immature Granu locytes (promyelocytes, myelocytes and metamyelocytes) > 1% indicates that a LEFT SHIFT is Present. Lymphocytes Auto (Unsp spec) [#/Vol]Ordered By: reban Beam on 05-07-2024 Lymphocytes (Bld) [#/Vol] 1.95 10*3/uL 0.83-4.51 [facility] Lymphocytes/100 WBC Auto (Un sp spec)Ordered By: Paytonlun Beam on 05-07-2024 Lymphocytes/100 WBC (Bld) 25.4 % 19-41 [facility] MCV (mean corpuscular volume ) determinationOrdered By: kwasilun Beam on 05-07-2024 MCV (RBC) [Entitic vol] 85.0 fL 81-99 [facility] Mean corpuscular hemoglobin (MCH) determinationOrdered By: Zebulun Beam on 05-07-2024 MCH (RBC) [Entitic mass] 26.9 pg Low 27.0-32.0 [facility] Mean corpuscular hemoglobin concentration (MCHC) determinationOrdered By: bulun Beam on 05-07-2024 MCHC (RBC) [Mass/Vol] 31.7 g/dL Low 32-36 [facility] Mean platelet volume determi nationOrdered By: Zebulun Beam on 05-07-2024 Platelet mean volume (Bld) [Entitic vol] 9.4 fL 6.2-12.0 [facility] Monocyte percentageOrdered B y: Zebulun Beam on 05-07-2024 Monocytes/100 WBC (Bld) 9.1 % 0-10 [facility] Neutrophil percentageOrdered By: Zebulun Beam on 05-07-2024 Neutrophils/100 WBC (Bld) 64.3 % 47-70 [facility] Nucleated red blood cell per centageOrdered By: Zebulun Beam on 05-07-2024 Nucleated RBC/100 WBC (Bld) [Ratio] 0 % 0-5 [facility] Platelet countOrdered By: Vazquez marteun Beam on 05-07-2024 Platelets (Bld) [#/Vol] 380 10*3/uL 150-450 [facility] RBC Auto (Bld) [#/Vol]Ordere d By: Zebulun Beam on 05-07-2024 RBC (Bld) [#/Vol] 4.72 10*6/uL 4.2-5.4 [facility] White blood cell (WBC) count Ordered By: Zebulun Beam on 05-07-2024 WBC (Bld) [#/Vol] 7.7 10*3/uL 4.4-11.0 [facility] Absolute lymphocyte countOrd ered By: Zebulun Beam on 04-22-2024 Lymphocytes Auto (Unsp spec) [#/Vol] 1.96 10*3/uL 0.83-4.51 [facility] Absolute neutrophil countOrd ered By: Zebulun Beam on 04-22-2024 Neutrophils (Bld) [#/Vol] 4.8 10*3/uL 2.0-7.7 [facility] Anion gap in Serum or Plasma Ordered By: Zebulun Beam on 04-22-2024 Anion gap [Moles/Vol] 15 mmol/L 5-15 [facility] Automated lymphocyte count a s percentage of total leukocytesOrdered By: Zebulun Beam on 04-22-2024 Lymphocytes/100 WBC Auto (Unsp spec) 26.0 % 19-41 [facility] BUN/creatinine ratioOrdered By: Zebulun Beam on 04-22-2024 Urea nitrogen/Creatinine [Mass ratio] 17.7 mg/mg 10-20 [facility] Basophil percentageOrdered B y: Zebulun Beam on 04-22-2024 Basophils/100 WBC (Bld) 0.5 % 0-1 [facility] Bilirubin, totalOrdered By: Zebulun Beam on 04-22-2024 Bilirubin [Mass/Vol] 0.33 mg/dL 0.00-1.30 [facility] CBC W/Diff, Automatedon Absolute Lymph 1.96 X10 3/uL Normal 0.83-4.51 [facility] Comment on above: Performed By: #### L 500.4050, L100.0100 ####[facility] [address] [place], [address] Absolute Neut 4.8 X10 3/uL Normal 2.0-7.7 [facility] Comment on above: Performed By: #### L 500.4050, L100.0100 ####[facility] [address] [place], [address] Basophils/100 WBC (Bld) 0.5 % Normal 0-1 [facility] Comment on above: Performed By: #### L 500.4050, L100.0100 ####[facility] [address] [place], [address] Eosinophils/100 WBC (Bld) 0.7 % Normal 0-5 [facility] Comment on above: Performed By: #### L 500.4050, L100.0100 ####[facility] [address] [place], [address] Erythrocyte distribution width (RBC) [Ratio] 13.7 % Normal 11.6-14.6 [facility] Comment on above: Performed By: #### L 500.4050, L100.0100 ####[facility] [address] [place], [address] Hematocrit (Bld) [Volume fraction] 37.9 % Normal 37-47 [facility] Comment on above: Performed By: #### L 500.4050, L100.0100 ####[facility] [address] [place], [address] Hemoglobin (Bld) [Mass/Vol] 12.1 g/dL Normal 12.0-15.0 [facility] Comment on above: Performed By: #### L 500.4050, L100.0100 ####[facility] [address] [place], [address] IG% 0.100 Normal 0.0-0.9 [facility] Comment on above: Result Comment: IG% - Immature Granulocytes (promyelocytes, myelocytes andmetamyelocytes) > 1% indicates that a LEFT SHIFT is Present. Performed By: #### L 500.4050, L100.0100 ####[facility] [address] [place], [address] Lymphocytes/100 WBC (Bld) 26.0 % Normal 19-41 [facility] Comment on above: Performed By: #### L 500.4050, L100.0100 ####[facility] [address] [place], [address] MCH (RBC) [Entitic mass] 26.9 pg Low 27.0-32.0 [facility] Comment on above: Performed By: #### L 500.4050, L100.0100 ####[facility] [address] [place], [address] MCHC (RBC) [Mass/Vol] 31.9 g/dL Low 32-36 [facility] Comment on above: Performed By: #### L 500.4050, L100.0100 ####[facility] [address] [place], [address] MCV (RBC) [Entitic vol] 84.2 fL Normal 81-99 [facility] Comment on above: Performed By: #### L 500.4050, L100.0100 ####[facility] [address] [place], [address] Monocytes/100 WBC (Bld) 8.5 % Normal 0-10 [facility] Comment on above: Performed By: #### L 500.4050, L100.0100 ####[facility] [address] [place], [address] Neutrophils/100 WBC (Bld) 64.2 % Normal 47-70 [facility] Comment on above: Performed By: #### L 500.4050, L100.0100 ####[facility] [address] [place], [address] Nucleated RBC (Bld) [#/Vol] 0 10*3/uL Normal 0-5 [facility] Comment on above: Performed By: #### L 500.4050, L100.0100 ####[facility] [address] [place], [address] Platelet mean volume (Bld) [Entitic vol] 9.6 fL Normal 6.2-12.0 [facility] Comment on above: Performed By: #### L 500.4050, L100.0100 ####[facility] [address] [place], [address] Platelets (Bld) [#/Vol] 352 10*3/uL Normal 150-450 [facility] Comment on above: Performed By: #### L 500.4050, L100.0100 ####[facility] [address] [place], [address] RBC (Bld) [#/Vol] 4.50 10*6/uL Normal 4.2-5.4 [facility] Comment on above: Performed By: #### L 500.4050, L100.0100 ####[facility] [address] [place], [address] RDW SD 41.9 fl Normal 35.1-43.9 [facility] Comment on above: Performed By: #### L 500.4050, L100.0100 ####[facility] [address] [place], [address] WBC (Bld) [#/Vol] 7.5 10*3/uL Normal 4.4-11.0 [facility] Comment on above: Performed By: #### L 500.4050, L100.0100 ####[facility] [address] [place], [address] Carbon dioxide, total [Moles /volume] in Central venous bloodOrdered By: Karuna Lim on 04-22-2024 CO2 [Moles/Vol] 20.4 mmol/L Low 21.0-32.0 [facility] Chloride assayOrdered By: Vazquez Lim on 04-22-2024 Chloride [Moles/Vol] 104 mmol/L 98-108 [facility] Comprehensive Metabolic Prof ilon 04-22-2024 Albumin [Mass/Vol] 3.7 g/dL Normal 3.5-5.0 [facility] Comment on above: Performed By: #### L 500.4050, L100.0100 ####[facility] [address] [place], [address] Albumin/Globulin [Mass ratio] 1.1 {ratio} Normal 0.9-2.4 [facility] Comment on above: Performed By: #### L 500.4050, L100.0100 ####[facility] [address] [place], [address] ALK PHOS 62 U/L Normal 35-104 [facility] Comment on above: Performed By: #### L 500.4050, L100.0100 ####[facility] [address] [place], [address] ALT [Catalytic activity/Vol] 19 U/L Normal <=34 [facility] Comment on above: Performed By: #### L 500.4050, L100.0100 ####[facility] [address] [place], [address] AST [Catalytic activity/Vol] 17 U/L Normal <=31 [facility] Comment on above: Performed By: #### L 500.4050, L100.0100 ####[facility] [address] [place], [address] Bilirubin [Mass/Vol] 0.33 mg/dL Normal 0.00-1.30 [facility] Comment on above: Performed By: #### L 500.4050, L100.0100 ####[facility] [address] [place], [address] BUN/CRE 17.7 RATIO Normal 10-20 [facility] Comment on above: Performed By: #### L 500.4050, L100.0100 ####[facility] [address] [place], [address] Calcium [Mass/Vol] 9.3 mg/dL Normal 7.6-11.0 [facility] Comment on above: Performed By: #### L 500.4050, L100.0100 ####[facility] [address] [place], [address] Chloride [Moles/Vol] 104 mmol/L Normal 98-108 [facility] Comment on above: Performed By: #### L 500.4050, L100.0100 ####[facility] [address] [place], [address] CO2 [Moles/Vol] 20.4 mmol/L Low 21.0-32.0 [facility] Comment on above: Performed By: #### L 500.4050, L100.0100 ####[facility] [address] [place], [address] Creatinine [Mass/Vol] 0.58 mg/dL Low 0.70-1.20 [facility] Comment on above: Performed By: #### L 500.4050, L100.0100 ####[facility] [address] [place], [address] GAP 15 Normal 5-15 [facility] Comment on above: Performed By: #### L 500.4050, L100.0100 ####[facility] [address] [place], [address] GFR/1.73 sq M.predicted among non-blacks MDRD (S/P/Bld) [Vol rate/Area] 127 mL/min/{1.73_m2} Normal >60 [facility] Comment on above: Result Comment: mL/m in/1.73m2 CKD-EPI Creatinine Equation (2020) Performed By: #### L 500.4050, L100.0100 ####[facility] [address] [place], [address] Globulin (S) [Mass/Vol] 3.3 g/dL Normal 2.2-4.2 [facility] Comment on above: Performed By: #### L 500.4050, L100.0100 ####[facility] [address] [place], [address] Glucose [Mass/Vol] 109 mg/dL High 70-99 [facility] Comment on above: Performed By: #### L 500.4050, L100.0100 ####[facility] [address] [place], [address] Potassium [Moles/Vol] 4.3 mmol/L Normal 3.3-5.1 [facility] Comment on above: Performed By: #### L 500.4050, L100.0100 ####[facility] [address] [place], [address] Sodium [Moles/Vol] 139 mmol/L Normal 133-145 [facility] Comment on above: Performed By: #### L 500.4050, L100.0100 ####[facility] [address] [place], [address] T PROT 7.0 g/dL Normal 5.9-8.4 [facility] Comment on above: Performed By: #### L 500.4050, L100.0100 ####[facility] [address] [place], [address] Urea nitrogen [Mass/Vol] 10 mg/dL Normal 4-19 [facility] Comment on above: Performed By: #### L 500.4050, L100.0100 ####[facility] [address] [place], [address] Eosinophil percentageOrdered By: Paytonlun Beam on 04-22-2024 Eosinophils/100 WBC (Bld) 0.7 % 0-5 [facility] Erythrocyte distribution wid th ratioOrdered By: [facility] on 04-22-20[facility] Erythrocyte distribution width (RBC) [Ratio] 13.7 % 11.6-14.6 [facility] Erythrocyte distribution wid th standard deviationOrdered By: [facility] on 04-22-2024 Erythrocyte distribution width (RBC) [Entitic vol] 41.9 fL 35.1-43.9 [facility] Erythrocyte distribution width (RBC) [Ratio] 41.9 fl 35.1-43.9 [facility] GFR/1.73 sq M.predicted janet g non-blacks MDRD (S/P/Bld) [Vol rate/Area]Ordered By: Vazquezbulun Beam on 04-22-2024 Estimated GFR (MDRD) Non-Af Amer 127 >60 [facility] Comment on above: mL/min/1.73m2 CKD-EP I Creatinine Equation (2020) Glomerular filtration rate ( GFR) estimation/1.73 sq m using serum, plasma, or whole bOrdered By: Karuna Lim on 04-22-2024 GFR/1.73 sq M.predicted among non-blacks MDRD (S/P/Bld) [Vol rate/Area] 127 mL/min/{1.73_m2} >60 [facility] Comment on above: mL/min/1.73m2 CKD-EP I Creatinine Equation (2020) Hematocrit Auto (Bld) [Volum e fraction]Ordered By: Karuna Lim on 04-22-2024 Hematocrit (Bld) [Volume fraction] 37.9 % 37-47 [facility] Hemoglobin measurementOrdere d By: Karuna Lim on 04-22-2024 Hemoglobin (Bld) [Mass/Vol] 12.1 g/dL 12.0-15.0 [facility] Immature granulocytes/100 WB C Auto (Bld)Ordered By: Karuna Lim on 04-22-2024 Immature granulocytes/100 WBC (Bld) 0.100 % 0.0-0.9 [facility] Comment on above: IG% - Immature Granu locytes (promyelocytes, myelocytes and metamyelocytes) > 1% indicates that a LEFT SHIFT is Present. Laboratory - Chemistry and C hemistry - challengeOrdered By: Karuna Lim on 04-22-2024 AST [Catalytic activity/Vol] 17 U/L <32 [facility] Lymphocytes Auto (Unsp spec) [#/Vol]Ordered By: Karuna Lim on 04-22-2024 Lymphocytes (Bld) [#/Vol] 1.96 10*3/uL 0.83-4.51 [facility] Lymphocytes/100 WBC Auto (Un sp spec)Ordered By: Karuna Lim on 04-22-2024 Lymphocytes/100 WBC (Bld) 26.0 % 19-41 [facility] MCV (mean corpuscular volume ) determinationOrdered By: Karuna Lim on 04-22-2024 MCV (RBC) [Entitic vol] 84.2 fL 81-99 [facility] Mean corpuscular hemoglobin (MCH) determinationOrdered By: Zebulun Beam on 04-22-2024 MCH (RBC) [Entitic mass] 26.9 pg Low 27.0-32.0 [facility] Mean corpuscular hemoglobin concentration (MCHC) determinationOrdered By: Zebulun Beam on 04-22-2024 MCHC (RBC) [Mass/Vol] 31.9 g/dL Low 32-36 [facility] Mean platelet volume determi nationOrdered By: Zebulun Beam on 04-22-2024 Platelet mean volume (Bld) [Entitic vol] 9.6 fL 6.2-12.0 [facility] Monocyte percentageOrdered B y: Zebulun Beam on 04-22-2024 Monocytes/100 WBC (Bld) 8.5 % 0-10 [facility] Neutrophil percentageOrdered By: Zebulun Beam on 04-22-2024 Neutrophils/100 WBC (Bld) 64.2 % 47-70 [facility] Nucleated red blood cell per centageOrdered By: Zebulun Beam on 04-22-2024 Nucleated RBC/100 WBC (Bld) [Ratio] 0 % 0-5 [facility] Platelet countOrdered By: Vazquez marteun Beam on 04-22-2024 Platelets (Bld) [#/Vol] 352 10*3/uL 150-450 [facility] Potassium (Unsp spec) [Mass/ Vol]Ordered By: Zebulun Beam on 04-22-2024 Potassium [Moles/Vol] 4.3 mmol/L 3.3-5.1 [facility] Potassium measurement (mass/ volume)Ordered By: Zebulun Beam on 04-22-2024 Potassium (Unsp spec) [Mass/Vol] 4.3 mmol/L 3.3-5.1 [facility] RBC Auto (Bld) [#/Vol]Ordere d By: Zebulun Beam on 04-22-2024 RBC (Bld) [#/Vol] 4.50 10*6/uL 4.2-5.4 [facility] Serum creatinine measurement (mass/volume)Ordered By: Zebulun Beam on 04-22-2024 Creatinine [Mass/Vol] 0.58 mg/dL Low 0.70-1.20 [facility] Serum globulin measurementOr dered By: Karuna Lim on 04-22-2024 Globulin (S) [Mass/Vol] 3.3 g/dL 2.2-4.2 [facility] Serum glucose measurement (m ass/volume)Ordered By: Karuna Lim on 04-22-2024 Glucose [Mass/Vol] 109 mg/dL High 70-99 [facility] Serum or plasma alanine godinez otransferase (ALT) measurementOrdered By: Karuna Lim on 04-22-2024 ALT [Catalytic activity/Vol] 19 U/L <35 [facility] Serum or plasma albumin cherelle urement (mass/volume)Ordered By: Karuna Lim on 04-22-2024 Albumin [Mass/Vol] 3.7 g/dL 3.5-5.0 [facility] Serum or plasma albumin/glob ulin mass ratioOrdered By: Karuna Lim on 04-22-2024 Albumin/Globulin [Mass ratio] 1.1 {ratio} 0.9-2.4 [facility] Serum or plasma alkaline rohit sphatase measurementOrdered By: Karuna Lim on 04-22-2024 ALP [Catalytic activity/Vol] 62 U/L 35-104 [facility] Serum or plasma calcium cherelle urement (mass/volume)Ordered By: Karuna Lim on 04-22-2024 Calcium [Mass/Vol] 9.3 mg/dL 7.6-11.0 [facility] Serum or plasma urea nitroge n measurement (mass/volume)Ordered By: Karuna Lim on 04-22-2024 Urea nitrogen [Mass/Vol] 10 mg/dL 4-19 [facility] Sodium levelOrdered By: Payton Lim on 04-22-2024 Sodium [Moles/Vol] 139 mmol/L 133-145 [facility] Total proteinOrdered By: Juventino Lim on 04-22-2024 Protein [Mass/Vol] 7.0 g/dL 5.9-8.4 [facility] White blood cell (WBC) count Ordered By: Karuna Lim on 04-22-2024 WBC (Bld) [#/Vol] 7.5 10*3/uL 4.4-11.0 [facility] CNOVon 04-15-2024 CNOV Office Visit (ENWSTR ) -------- MARION GUTIERREZ ([id number]) 1995 F Date Time Provider Department 04/15/24 11:20 AM JEY JOHNSON ENWSTR During your visit today, we recorded the following information about you: Pulse Respiration Blood pressure Weight 68/minute 20/minute 120/68 132.3 kg Height Last Period 1.702 m 04/13/24 Jey Johnson MD 04/20/2024 3:26 PM Signed Endocrinology and Metabolism [place] Follow up note Chief complaint: Evaluation of ovarian hyperandrogenism HPI Marion Gutierrez is a 28 year old female presenting for follow up evaluation of ovarian hyperandrogenism. She is accompanied by her father today LV 10/26/23 Also GI referral says, concerns for AI She has gastroparesis for the last 6 months or more She has dizziness and lightheadedness to the point that she passes out. She has bloating and low appetite, sleeping 16 hours a day in the last 2.5 months She has vomiting , diarrhea and both sometimes She has coloscopy yesterday and had polyps removed Hirsutism started: puberty Patient uses mechanical hair removal (i.e. tweezers/waxing/shaving) : cream weekly History of deepening of voice: No History of change in genitalia: No LMP: not specific, may be 8 months Menstrual flow: 3 days, mostly spotting for a day or so Menarche: 17 to 18 years old- mother thinks she was in 6th grade, patient reports she was in high school Number of Pregnancies: no Planning a : no Currently taking oral contraception: no. She used OCPs in the past 3 years ago Now she is on provera for 10 days each month She used metformin but had intolerance Interval history: 04/15/24: She reports period from Mar 30 to and then again started on 04/13/24. Nothing like this was seen since starting OCPs in Dec 2023 Facial hair has improved. No other side effects. Not on aldactone now She reports she missed one pill in mar, whichshe is suspecting the reason to be for this. She has seen nutrition and is following instructions for conservative weight loss PAST MEDICAL HISTORY: PAST MEDICAL HISTORY Diagnosis Date Autism spectrum disorder Bipolar disorder (HCC) 05/2016 Borderline diabetic Fatty liver History of depression IBS (irritable bowel syndrome) diarrhea Iron deficiency anemia Kyphosis PAST SURGICAL HISTORY: PAST SURGICAL HISTORY Procedure Laterality Date ADDITIONAL SPINAL FUSION Thoraco-lumbar fusion KNEE SURGERY HX Left patellar fracture FAMILY HISTORY: FAMILY HISTORY Problem Relation Age of Onset Hypertension Father Heart Father Hypertension Mother Heart Mother Hypertension Brother Diabetes Paternal Grandfather Glaucoma Other SOCIAL HISTORY: Social History Tobacco Use Smoking status: Never Passive exposure: Never Smokeless tobacco: Never Vaping Use Vaping status: Never Used Substance Use Topics Alcohol use: No Drug use: No MEDICATIONS: Current Outpatient Medications on File Prior to Visit Medication Sig ARIPiprazole lauroxil ER (ARISTADA) 441 mg/1.6 mL injection Inject intramuscularly. Very 28 days ONETOUCH VERIO TEST STRIPS test strip Cyanocobalamin 1,000 mcg subl Take 1,000 mcg by mouth. AJOVY SYRINGE 225 mg/1.5 mL syringe INJECT 1.5ML (1 SYRINGE) SUBCUTANEOUSLY EVERY MONTH hyoscyamine (LEVSIN) 0.125 mg tablet imipramine HCl (TOFRANIL) 25 mg tablet Take by mouth. lactulose 10 gram/15 mL solution TAKE 45 ML BY MOUTH TWICE DAILY NEEDED FOR CONSTIPATION. ONETOUCH DELICA PLUS LANCET 33 gauge medroxyPROGESTERone (PROVERA) 10 mg tablet metoclopramide HCl (REGLAN) 10 mg tablet Take 5 mg by mouth. metoprolol tartrate, short acting, (LOPRESSOR) 50 mg tablet Take 1 tablet by mouth every 12 hours. ULTICARE PEN NEEDLE 32 gauge x 1/4 polyethylene glycol 3350 17 gram/dose powder MIX 4 GRAMS WITH LIQUID AND DRINK ONCE DAILY rizatriptan (MAXALT) 10 mg tablet Take by mouth as needed. simvastatin (ZOCOR) 20 mg tablet Take 20 mg by mouth daily at bedtime. sucralfate (CARAFATE) 1 gram tablet Take 1 g by mouth four times daily. hydrOXYzine pamoate (VISTARIL) 25 mg capsule ferrous sulfate 325 mg (65 mg iron) tablet Take 325 mg by mouth every other day. spironolactone (ALDACTONE) 50 mg tablet Take 50 mg by mouth two times a day. pantoprazole DR (PROTONIX) 20 mg tablet Take 40 mg by mouth once daily. lithium carbonate (ESKALITH) 300 mg capsule Take 300 mg by mouth daily after breakfast. cholecalciferol, Vitamin D3, (VITAMIN D3) 1,250 mcg (50,000 unit) cap capsule Take 1 capsule by mouth one time a week. (Patient not taking: Reported on 10/26/2023) No current facility-administered medications on file prior to visit. ALLERGIES: ALLERGIES Allergen Reactions Ondansetron Anaphylaxis, Other: See Comments Tongue swelling Broccoli Diarrhea Cauliflower Diarrhea Anti Depressants [T* Other: See Comments P (more content not 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 Normal [facility] CNOVon 04-14-2024 CN Office Visit (WSTR ) -------- MARION GUTIERREZ ([id number]) 1995 F Date Time Provider Department 04/14/24 4:00 PM MJ [facility] During your visit today, we recorded the following information about you: Temperature Pulse Respiration Blood pressure 98.5 degrees 76/minute 18/minute 142/98 Weight 133.7 kg Mj Balderas MD 04/14/2024 4:34 PM Signed Patient presents with: Diarrhea: vomiting, cough, chills and fever x 4 days HPI: Feeling sick starting 4 days ago. 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 Positive symptoms: Cough, Fever, Chills, Vomiting, Diarrhea, Sore throat, Rhinorrhea, Chills, Malaise, Negative symptoms: Cough, OTC: imodium, pepto. MEDICATIONS: Current Outpatient Medications Medication Sig amLODIPine (NORVASC) 5 mg tablet cholecalciferol (VITAMIN D3) 1,000 unit tab tablet Take 1,000 Units by mouth once daily. lithium carbonate 600 mg capsule Take 600 mg by mouth daily at bedtime. pantoprazole DR (PROTONIX) 40 mg tablet Take 40 mg by mouth once daily. norgestimate 0.25 mg-ethinyl estradiol 35 mcg (SPRINTEC) 0.25-35 mg-mcg per tablet Take 1 tablet by mouth once daily. ARIPiprazole lauroxil ER (ARISTADA) 441 mg/1.6 mL injection Inject 441 mg intramuscularly every 4 weeks. Expect LabsTOUCH VERIO TEST STRIPS test strip 1 Each four times daily. Cyanocobalamin 1,000 mcg subl Dissolve 1,000 mcg under the tongue once daily. AJOVY SYRINGE 225 mg/1.5 mL syringe INJECT 1.5ML (1 SYRINGE) SUBCUTANEOUSLY EVERY MONTH imipramine HCl (TOFRANIL) 25 mg tablet Take 25 mg by mouth daily at bedtime. lactulose 10 gram/15 mL solution TAKE 45 ML BY MOUTH TWICE DAILY NEEDED FOR CONSTIPATION. Expect LabsTOUCH DELICA PLUS LANCET 33 gauge 1 Each four times daily. metoclopramide HCl (REGLAN) 10 mg tablet Take 5 mg by mouth four times daily. metoprolol tartrate, short acting, (LOPRESSOR) 50 mg tablet Take 100 mg by mouth two times a day. ULTICARE PEN NEEDLE 32 gauge x 1/4 1 Each four times daily. polyethylene glycol 3350 17 gram/dose powder Take 17 g by mouth once daily. rizatriptan (MAXALT) 10 mg tablet Take 10 mg by mouth as needed for migraine headache (see administration instructions). simvastatin (ZOCOR) 20 mg tablet Take 20 mg by mouth daily at bedtime. ferrous sulfate 325 mg (65 mg iron) tablet Take 325 mg by mouth every other day. lithium carbonate (ESKALITH) 300 mg capsule Take 300 mg by mouth daily after breakfast. No current facility-administered medications for this visit. ALLERGIES: ALLERGIES Allergen Reactions Ondansetron Anaphylaxis, Other: See Comments Tongue swelling Broccoli Diarrhea Cauliflower Diarrhea Anti Depressants [T* Other: See Comments Patient states she must take anti-depressants with a mood stabilizer or else she becomes suicidal. Escitalopram Other: See Comments Suicidal ideation suicidal Suicidal thoughts Gluten Flour Diarrhea Lactase Diarrhea, GI Upset Eats dairy products, just limit amount Lexapro [Escitalopr* Mental Status Change Seasonal Allergies Cough Tomato GI Upset Zofran (Pf) In Dext* Swelling, GI Upset Metformin Diarrhea, GI Upset Pollen Extracts Hives, Intolerance VITALS: BP 142/98 Pulse 76 Temp 36.9 ?C (98.5 ?F) Resp 18 Wt 133.7 kg (294 lb 12.1 oz) LMP 12/29/2023 (Exact Date) SpO2 97% BMI 46.17 kg/m? PHYSICAL EXAM: GEN: mildly ill appearing HEENT: PERRL, EOMI, conjunctiva clear Ears: canals clear. TMs without erythema, bulge, or effusion Sinuses: non-tender frontal sinus, non-tender maxillary sinuses Throat: moist mucous membranes, mild erythema, no exudate Neck: supple, no thyromegaly, no lymphadenopathy HEART: regular rate, regular rhythm, no murmurs LUNGS: clear to auscultation, no wheezes or crackles, no increased WOB ABD: Soft, non-distended, tender RUQ and RLQ, no masses ASSESSMENT/PLAN: 1. Influenza-like illness - ICD9: 487.1, ICD10: J11.1 - COVID AND INFLUENZA A/B AND RSV PCR, ROUTINE. She will call for results if she cannot log into [employer] tomorrow. Continue supportive care for viral illness. She is beyond the therapeutic window for tamiflu. Mj Balderas MD Allergies As of Date: 04/14/2024 Noted Allergy Reaction ONDANSETRON 07/14/2016 10 - Anaphylaxis 14 - Other: See Comments Comments: Tongue swelling BROCCOLI 04/08/2023 6 - Diarrhea CAULIFLOWER 04/08/2023 6 - Diarrhea ANTI DEPRESSANTS (TRICYCLIC ANTID*08/21/2016 14 - Other: See Comments Comments: Patient states she must take anti-depressants with a mood stabilizer or else she becomes suicidal. ESCITALOPRAM 07/14/2016 14 - Other: See Comments Comments: Suicidal ideation suicidal Suicidal thoughts GLUTEN FLOUR 08/21/2016 6 - Diarrhea LACTASE 09/12/2011 6 - Diarrhea 8 - GI Upset Comments: Eats (more content not 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 Normal [facility] Urine Cultureon 02-06-2024 URC Below infection leve l. Mixed Gram Positive Organisms Scott Count 1000-10,000 MIXC Mixed contaminants. Submit a new specimen if indicated. Normal [facility] Comment on above: Performed By: #### M 100.2200, L400.2010 ####[facility] [address] [place], [address] Bilirubin Test strip Ql (U)O rdered By: Zebulun Beam on 02-05-2024 Bilirubin Ql (U) Negative Negative [facility] Glucose Ql (U)Ordered By: Ze bulun Beam on 02-05-2024 Urine Glucose (UA) Normal mg/dl Normal [facility] Ketones Test strip Ql (U)Ord ered By: Zebulun Beam on 02-05-2024 Ketones Ql (U) Negative Negative [facility] Nitrite Test strip Ql (U)Ord ered By: Zebulun Beam on 02-05-2024 Nitrite Ql (U) Negative Negative [facility] Protein Test strip Ql (U)Ord ered By: Zebulun Beam on 02-05-2024 Protein Ql (U) 30 mg/dl High Negative [facility] Urinalysis, Routine (Dipstic k)on 02-05-2024 BILIRUBIN URINE Negative Normal Negative [facility] Comment on above: Order Comment: Urine , Random Performed By: #### M 100.0, L4 ####[facility] [address] [place], [address] Clarity (U) Cloudy Normal Clear [facility] Comment on above: Order Comment: Urine , Random Performed By: #### M 100.2200, L400.2010 ####[facility] [address] [place], [address] Color (U) Yellow Normal Yellow [facility] Comment on above: Order Comment: Urine , Random Performed By: #### M 100.2200, L400.2010 ####[facility] [address] [place], [address] GLUCOSE, UR Normal Normal Normal [facility] Comment on above: Order Comment: Urine , Random Performed By: #### M 100.2199, L4 ####[facility] [address] [place], [address] KETONE UR Negative Normal Negative [facility] Comment on above: Order Comment: Urine , Random Performed By: #### M 100.2199, L4 ####[facility] [address] [place], [address] LEUK ESTERASE 25 /ul Abnormal Negative [facility] Comment on above: Order Comment: Urine , Random Performed By: #### M , L4 ####[facility] [address] [place], [address] Nitrite Ql (U) Negative Normal Negative [facility] Comment on above: Order Comment: Urine , Random Performed By: #### M , L4 ####[facility] [address] [place], [address] OCCULT BLOOD-UR 250 /ul Abnormal Negative [facility] Comment on above: Order Comment: Urine , Random Performed By: #### M , L4 ####[facility] [address] [place], [address] pH UR 6.0 Normal 5.0 - 8.0 [facility] Comment on above: Order Comment: Urine , Random Performed By: #### M 100.2199, L4 ####[facility] [address] [place], [address] PROT DIPSTX 30 mg/dl Abnormal Negative [facility] Comment on above: Order Comment: Urine , Random Performed By: #### M 100.2199, L4 ####[facility] [address] [place], [address] SP.GR. DIPSTX 1.015 Normal 1.002-1.030 [facility] Comment on above: Order Comment: Urine , Random Performed By: #### M 100.2200, L400.2010 ####[facility] [address] [place], [place], [address] UROBILI Normal Normal Normal [facility] Comment on above: Order Comment: Urine , Random Performed By: #### M 100.2200, L400.2010 ####[facility] [address] [place], [address] Urine blood detectionOrdered By: Karuna Lim on 02-05-2024 Urine Occult Blood 250 /ul High Negative [facility] Urine clarityOrdered By: Juventino Lim on 02-05-2024 Clarity (U) Cloudy Clear [facility] Urine color determinationOrd ered By: Karuna Lim on 02-05-2024 Color (U) Yellow Yellow [facility] Urine cultureOrdered By: Juventino Lim on 02-05-2024 Bacteria identified Cx Nom (U) Positive Abnormal [facility] Urine leukocyte esterase det ection by dipstickOrdered By: Karuna Lim on 02-05-2024 Leukocyte esterase Test strip Ql (U) 25 /ul High Negative [facility] Urine pHOrdered By: Karuna Lim on 02-05-2024 pH (U) 6.0 [pH] 5.0 - 8.0 [facility] Urine specific gravity measu rementOrdered By: Karuna Lim on 02-05-2024 Specific gravity (U) [Rel density] 1.015 1.002-1.030 [facility] Urobilinogen Ql (U)Ordered B y: Karuna Lim on 02-05-2024 Urine Urobilinogen Normal mg/dl Normal [facility] CNOVon 01-25-2024 CNOV Office Visit ([facility] ) -------- MARION GUTIERREZ ([id number]) 1995 F Date Time Provider Department 01/25/24 1:30 PM LOUIS SCHMIDT During your visit today, we recorded the following information about you: Temperature Pulse Respiration Blood pressure 98.6 degrees 69/minute 20/minute 132/90 Weight 135 kg Louis Schmidt APRN.[employer] 01/25/2024 12:56 PM Signed CC: Patient presents with: Ear Pain: Left ear pain felt pop, feels clogged had blood and pus drainage started last night @ 830pm HPI: Marion Gutierrez is a 28 year old female who presents to the office with complaint of ear symptoms since last night. Symptoms are staying the same. Associated symptoms includes ear pain. Denies fever, nausea, vomiting , and diarrhea. Treatments tried include nothing so far. with no relief of symptoms. Sick contacts: unknown. History of asthma, frequent episodes of bronchitis, chronic bronchitis, bronchiectasis or COPD: No Smoker: No Seasonal/environmental allergies: No The ROS is otherwise negative. The patient's pmh, medications, allergies, and past visits are reviewed. PHYSICAL EXAM: BP 132/90 Pulse 69 Temp 37 ?C (98.6 ?F) Resp 20 Wt 135 kg (297 lb 9.9 oz) LMP 12/29/2023 (Exact Date) SpO2 100% BMI 46.61 kg/m? General appearance: alert, cooperative, pleasant, in no acute distress Head: Normocephalic Eyes: EOM's intact, conjunctiva pink and moist, no icterus, sclera white, non-injected Ears: Right ear: External ear/canal- Normal, TM - clear with good landmarks. Left ear: External ear/canal- otitis externa, TM - erythematous, purulent effusion present Oropharynx:moist without lesions, No erythema, exudates or tonsillar hypertrophy. Heart: Negative. RRR without obvious murmur, gallop, or rubs. No ectopy. Lungs: clear to auscultation, without rales or wheeze, good air exchange PAST MEDICAL HISTORY Diagnosis Date Autism spectrum disorder Bipolar disorder (HCC) 05/2016 Borderline diabetic Fatty liver History of depression IBS (irritable bowel syndrome) diarrhea Iron deficiency anemia Kyphosis PAST SURGICAL HISTORY Procedure Laterality Date ADDITIONAL SPINAL FUSION Thoraco-lumbar fusion KNEE SURGERY HX Left patellar fracture ALLERGIES Ondansetron, Broccoli, Cauliflower, Anti Depressants [Tricyclic Antidepressants And Tricyclic Compounds], Escitalopram, Gluten Flour, Lactase, Lexapro [Escitalopram Oxalate], Seasonal Allergies, Tomato, Zofran (Pf) In Dextrose [Ondansetron (Pf) In Dextrose], Metformin, and Pollen Extracts MEDICATIONS cholecalciferol (VITAMIN D3) 1,000 unit tab tablet Take 1,000 Units by mouth once daily. lithium carbonate 600 mg capsule Take 600 mg by mouth daily at bedtime. pantoprazole DR (PROTONIX) 40 mg tablet Take 40 mg by mouth once daily. norgestimate 0.25 mg-ethinyl estradiol 35 mcg (SPRINTEC) 0.25-35 mg-mcg per tablet Take 1 tablet by mouth once daily. ARIPiprazole lauroxil ER (ARISTADA) 441 mg/1.6 mL injection Inject 441 mg intramuscularly every 4 weeks. [employer] Corporation[employer] VERIO TEST STRIPS test strip 1 Each four times daily. Cyanocobalamin 1,000 mcg subl Dissolve 1,000 mcg under the tongue once daily. AJOVY SYRINGE 225 mg/1.5 mL syringe INJECT 1.5ML (1 SYRINGE) SUBCUTANEOUSLY EVERY MONTH imipramine HCl (TOFRANIL) 25 mg tablet Take 25 mg by mouth daily at bedtime. lactulose 10 gram/15 mL solution TAKE 45 ML BY MOUTH TWICE DAILY NEEDED FOR CONSTIPATION. ONETOUCH DELICA PLUS LANCET 33 gauge 1 Each four times daily. metoclopramide HCl (REGLAN) 10 mg tablet Take 5 mg by mouth four times daily. metoprolol tartrate, short acting, (LOPRESSOR) 50 mg tablet Take 1 tablet by mouth every 12 hours. ULTICARE PEN NEEDLE 32 gauge x 1/4 1 Each four times daily. polyethylene glycol 3350 17 gram/dose powder Take 17 g by mouth once daily. rizatriptan (MAXALT) 10 mg tablet Take 10 mg by mouth as needed for migraine headache (see administration instructions). simvastatin (ZOCOR) 20 mg tablet Take 20 mg by mouth daily at bedtime. ferrous sulfate 325 mg (65 mg iron) tablet Take 325 mg by mouth every other day. lithium carbonate (ESKALITH) 300 mg capsule Take 300 mg by mouth daily after breakfast. amoxicillin (AMOXIL) 875 mg tablet Take 1 tablet by mouth two times a day for 7 days. vbfjacqy-owjacfabh-kqfto cortisone (CORTISPORIN) 3.5-10,000-1 mg/mL-unit/mL-% otic suspension Use 3 Drops in the left ear four times daily for 5 days. FAMILY HISTORY Problem Relation Age of Onset Hypertension Father Heart Father Hypertension Mother Heart Mother Hypertension Brother Diabetes Paternal Grandfather Glaucoma Other Social History Tobacco Use Smoking status: Never Passive exposure: Never Smokeless tobacco: Never Vaping Use Vaping status: Never Used Substance Use Topics Alcohol use: No Drug use: No ASSESSMENT/PLAN: 1. Acute betty (more content not 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 [facility] -------- MARION GUTIERREZ ([id number]) 1995 F Date Time Provider Department 01/25/24 MALLIKA MO [facility] During your visit today, we recorded the following information about you: Mallika Mo APRN.[facility] 01/25/2024 7:12 AM Signed Please notify that covid/flu/rsv testing negative. Continue with plan of care as discussed during visit. Natalee Rodriguez LPN 01/25/2024 10:48 AM Signed Patient given results and verbalized understanding of instructions given.. Natalee Rodriguez LPN Allergies As of Date: 01/25/2024 Noted Allergy Reaction ONDANSETRON 07/14/2016 10 - Anaphylaxis 14 - Other: See Comments Comments: Tongue swelling BROCCOLI 04/08/2023 6 - Diarrhea CAULIFLOWER 04/08/2023 6 - Diarrhea ANTI DEPRESSANTS (TRICYCLIC ANTID*08/21/2016 14 - Other: See Comments Comments: Patient states she must take anti-depressants with a mood stabilizer or else she becomes suicidal. ESCITALOPRAM 07/14/2016 14 - Other: See Comments Comments: Suicidal ideation suicidal Suicidal thoughts GLUTEN FLOUR 08/21/2016 6 - Diarrhea LACTASE 09/12/2011 6 - Diarrhea 8 - GI Upset Comments: Eats dairy products, just limit amount LEXAPRO (ESCITALOPRAM OXALATE) 01/13/2019 1 - Mental Status Change SEASONAL ALLERGIES 12/02/2012 3 - Cough TOMATO 04/08/2023 8 - GI Upset ZOFRAN (PF) IN DEXTROSE (ONDANSET*08/21/2016 7 - Swelling 8 - GI Upset METFORMIN 02/28/2022 6 - Diarrhea 8 - GI Upset POLLEN EXTRACTS 12/09/2020 4 - Hives 5 - Intolerance Date Reviewed: 01/24/2024 Reviewed by: Natalee Rodriguez LPN - Fully Assessed Reason for Visit: Results [95] Prescriptions as of 01/25/2024 - cholecalciferol (VITAMIN D3) 1,000 unit tab tablet Take 1,000 Units by mouth once daily. - lithium carbonate 600 mg capsule Take 600 mg by mouth daily at bedtime. - pantoprazole DR (PROTONIX) 40 mg tablet Take 40 mg by mouth once daily. - norgestimate 0.25 mg-ethinyl estradiol 35 mcg (SPRINTEC) 0.25-35 mg-mcg per tablet Take 1 tablet by mouth once daily. - ARIPiprazole lauroxil ER (ARISTADA) 441 mg/1.6 mL injection Inject 441 mg intramuscularly every 4 weeks. - ONETOUCH VERIO TEST STRIPS test strip 1 Each four times daily. - Cyanocobalamin 1,000 mcg subl Dissolve 1,000 mcg under the tongue once daily. - AJOVY SYRINGE 225 mg/1.5 mL syringe INJECT 1.5ML (1 SYRINGE) SUBCUTANEOUSLY EVERY MONTH - imipramine HCl (TOFRANIL) 25 mg tablet Take 25 mg by mouth daily at bedtime. - lactulose 10 gram/15 mL solution TAKE 45 ML BY MOUTH TWICE DAILY NEEDED FOR CONSTIPATION. - ONETOUCH DELICA PLUS LANCET 33 gauge 1 Each four times daily. - metoclopramide HCl (REGLAN) 10 mg tablet Take 5 mg by mouth four times daily. - metoprolol tartrate, short acting, (LOPRESSOR) 50 mg tablet Take 1 tablet by mouth every 12 hours. - ULTICARE PEN NEEDLE 32 gauge x 1/4 1 Each four times daily. - polyethylene glycol 3350 17 gram/dose powder Take 17 g by mouth once daily. - rizatriptan (MAXALT) 10 mg tablet Take 10 mg by mouth as needed for migraine headache (see administration instructions). - simvastatin (ZOCOR) 20 mg tablet Take 20 mg by mouth daily at bedtime. - ferrous sulfate 325 mg (65 mg iron) tablet Take 325 mg by mouth every other day. - lithium carbonate (ESKALITH) 300 mg capsule Take 300 mg by mouth daily after breakfast. Problem List As Of Date 01/25/2024 Noted Resolved Bipolar disorder (HCC) [F31.9] 05/20/2016 Autism spectrum disorder [F84.0] Ophthalmic migraine [G43.109] 08/21/2016 Headache, chronic daily [R51.9] 08/21/2016 High myopia [H52.10] 08/21/2016 Obesity, Class III, BMI 40-49.9 (morbid obesity*10/26/2023 Encounter Status:Closed by NATALEE RODRIGUEZ on 01/25/24 [facility] CNOVon 01-24-2024 CNOV Office Visit ([facility] ) -------- MARION GUTIERREZ ([id number]) 1995 F Date Time Provider Department 01/24/24 1:45 PM RAMÓN GALICIA [facility] During your visit today, we recorded the following information about you: Temperature Pulse Respiration Blood pressure 97.9 degrees 73/minute 20/minute 128/82 Weight 135 kg Ramón Galicia PA 01/24/2024 2:08 PM Signed This note was created using [employer]. Subjective Marionrachel Gutierrez is a 28 year old female. HPI 28-year-old female presents for sore throat, cough, fever. Patient states she has had sore throat for the past 2 days. She states that she has had a deep dry cough as well. No chest pain or shortness of breath. No history of asthma. She states that she has had a fever, Tmax 101.4 ?F earlier this morning. She did take ibuprofen this morning which helped for short period of time with symptoms. She is still able to eat and drink. No vomiting or diarrhea. No sick contacts that she is aware of. No other complaint. PAST MEDICAL HISTORY Diagnosis Date Autism spectrum disorder Bipolar disorder (HCC) 05/2016 Borderline diabetic Fatty liver History of depression IBS (irritable bowel syndrome) diarrhea Iron deficiency anemia Kyphosis PAST SURGICAL HISTORY Procedure Laterality Date ADDITIONAL SPINAL FUSION Thoraco-lumbar fusion KNEE SURGERY HX Left patellar fracture ALLERGIES Ondansetron, Broccoli, Cauliflower, Anti Depressants [Tricyclic Antidepressants And Tricyclic Compounds], Escitalopram, Gluten Flour, Lactase, Lexapro [Escitalopram Oxalate], Seasonal Allergies, Tomato, Zofran (Pf) In Dextrose [Ondansetron (Pf) In Dextrose], Metformin, and Pollen Extracts MEDICATIONS cholecalciferol (VITAMIN D3) 1,000 unit tab tablet Take 1,000 Units by mouth once daily. lithium carbonate 600 mg capsule Take 600 mg by mouth daily at bedtime. pantoprazole DR (PROTONIX) 40 mg tablet Take 40 mg by mouth once daily. norgestimate 0.25 mg-ethinyl estradiol 35 mcg (SPRINTEC) 0.25-35 mg-mcg per tablet Take 1 tablet by mouth once daily. ARIPiprazole lauroxil ER (ARISTADA) 441 mg/1.6 mL injection Inject 441 mg intramuscularly every 4 weeks. [employer] VERIO TEST STRIPS test strip 1 Each four times daily. Cyanocobalamin 1,000 mcg subl Dissolve 1,000 mcg under the tongue once daily. AJOVY SYRINGE 225 mg/1.5 mL syringe INJECT 1.5ML (1 SYRINGE) SUBCUTANEOUSLY EVERY MONTH imipramine HCl (TOFRANIL) 25 mg tablet Take 25 mg by mouth daily at bedtime. lactulose 10 gram/15 mL solution TAKE 45 ML BY MOUTH TWICE DAILY NEEDED FOR CONSTIPATION. Expect LabsTOUCH DELICA PLUS LANCET 33 gauge 1 Each four times daily. metoclopramide HCl (REGLAN) 10 mg tablet Take 5 mg by mouth four times daily. metoprolol tartrate, short acting, (LOPRESSOR) 50 mg tablet Take 1 tablet by mouth every 12 hours. ULTICARE PEN NEEDLE 32 gauge x 1/4 1 Each four times daily. polyethylene glycol 3350 17 gram/dose powder Take 17 g by mouth once daily. rizatriptan (MAXALT) 10 mg tablet Take 10 mg by mouth as needed for migraine headache (see administration instructions). simvastatin (ZOCOR) 20 mg tablet Take 20 mg by mouth daily at bedtime. ferrous sulfate 325 mg (65 mg iron) tablet Take 325 mg by mouth every other day. lithium carbonate (ESKALITH) 300 mg capsule Take 300 mg by mouth daily after breakfast. FAMILY HISTORY Problem Relation Age of Onset Hypertension Father Heart Father Hypertension Mother Heart Mother Hypertension Brother Diabetes Paternal Grandfather Glaucoma Other Social History Tobacco Use Smoking status: Never Passive exposure: Never Smokeless tobacco: Never Vaping Use Vaping status: Never Used Substance Use Topics Alcohol use: No Drug use: No Review of Systems Constitutional: Positive for fatigue and fever. Negative for chills. HENT: Positive for sore throat. Negative for congestion and ear pain. Respiratory: Positive for cough. Negative for shortness of breath. Cardiovascular: Negative for chest pain. Gastrointestinal: Negative for diarrhea and vomiting. Objective BP 128/82 Pulse 73 Temp 36.6 ?C (97.9 ?F) Resp 20 Wt 135 kg (297 lb 9.9 oz) LMP 12/29/2023 (Exact Date) SpO2 98% BMI 46.61 kg/m? Physical Exam Vitals and nursing note reviewed. Constitutional: General: She is not in acute distress. Appearance: Normal appearance. She is not toxic-appearing. HENT: Right Ear: Tympanic membrane and ear canal normal. Left Ear: Tympanic membrane and ear canal normal. Nose: Nose normal. Mouth/Throat: Mouth: Mucous membranes are moist. Pharynx: Uvula midline. Posterior oropharyngeal erythema present. Tonsils: No tonsillar exudate or tonsillar abscesses. 1+ on the right. 1+ on the left. Eyes: Conjunctiva/sclera: Conjunctivae normal. Cardiovascular: Rate and Rhythm: Normal rate and regular rhythm. Pulmonary: Effort: Pu (more content not 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 Normal [facility] COVID AND INFLUENZA A/B AND RSV PCR, ROUTINEon 01-24-2024 SARS-CoV-2 (COVID-19) RNA DAMARIS+probe Ql (Unsp spec) SARS-COV-2 (AGENT OF COVID-19) RNA: Not detected INFLUENZA A RNA: Not detected INFLUENZA B RNA: Not detected RESPIRATORY SYNCYTIAL VIRUS (RSV) RNA: Not detected Normal [facility] Comment on above: Performed By: #### C VFLRS #### [facility] CLIA [id number] [address] [place] [address] [place] STREP A MOLECULAR (POC)on Procedural Control Valid [facility] Strep A (POCT) Negative Negative [facility] Visit Reporton Cardiology Visit Report Normal [facility] CNOVon 01-08-2024 CNOV Office Visit (ENWSTR ) -------- MARION GUTIERREZ ([id number]) 1995 F Date Time Provider Department 01/08/24 11:40 AM JEY JOHNSON During your visit today, we recorded the following information about you: Pulse Respiration Blood pressure Weight 72/minute 21/minute 122/76 133.4 kg Height Last Period 1.702 m 12/29/23 Jey Johnson MD 01/09/2024 6:32 PM Signed Endocrinology and Metabolism [place] Follow up note Chief complaint: Evaluation of ovarian hyperandrogenism HPI Marionrachel Gutierrez is a 28 year old female presenting for follow up evaluation of ovarian hyperandrogenism. She is accompanied by her father today LV 10/26/23 Also GI referral says, concerns for AI She has gastroparesis for the last 6 months or more She has dizziness and lightheadedness to the point that she passes out. She has bloating and low appetite, sleeping 16 hours a day in the last 2.5 months She has vomiting , diarrhea and both sometimes She has coloscopy yesterday and had polyps removed Hirsutism started: puberty Patient uses mechanical hair removal (i.e. tweezers/waxing/shaving) : cream weekly History of deepening of voice: No History of change in genitalia: No LMP: not specific, may be 8 months Menstrual flow: 3 days, mostly spotting for a day or so Menarche: 17 to 18 years old- mother thinks she was in 6th grade, patient reports she was in high school Number of Pregnancies: no Planning a : no Currently taking oral contraception: no. She used OCPs in the past 3 years ago Now she is on provera for 10 days each month She used metformin but had intolerance Interval history: 01/08/24: She has no new symptoms. She is following up after lab work for irregular cycles after being off of aldactone and provera PAST MEDICAL HISTORY: PAST MEDICAL HISTORY Diagnosis Date Autism spectrum disorder Bipolar disorder (HCC) 05/2016 Borderline diabetic Fatty liver History of depression IBS (irritable bowel syndrome) diarrhea Iron deficiency anemia Kyphosis PAST SURGICAL HISTORY: PAST SURGICAL HISTORY Procedure Laterality Date ADDITIONAL SPINAL FUSION Thoraco-lumbar fusion KNEE SURGERY HX Left patellar fracture FAMILY HISTORY: FAMILY HISTORY Problem Relation Age of Onset Hypertension Father Heart Father Hypertension Mother Heart Mother Hypertension Brother Diabetes Paternal Grandfather Glaucoma Other SOCIAL HISTORY: Social History Tobacco Use Smoking status: Never Passive exposure: Never Smokeless tobacco: Never Vaping Use Vaping status: Never Used Substance Use Topics Alcohol use: No Drug use: No MEDICATIONS: Current Outpatient Medications on File Prior to Visit Medication Sig ARIPiprazole lauroxil ER (ARISTADA) 441 mg/1.6 mL injection Inject intramuscularly. Very 28 days ONETOUCH VERIO TEST STRIPS test strip Cyanocobalamin 1,000 mcg subl Take 1,000 mcg by mouth. AJOVY SYRINGE 225 mg/1.5 mL syringe INJECT 1.5ML (1 SYRINGE) SUBCUTANEOUSLY EVERY MONTH hyoscyamine (LEVSIN) 0.125 mg tablet imipramine HCl (TOFRANIL) 25 mg tablet Take by mouth. lactulose 10 gram/15 mL solution TAKE 45 ML BY MOUTH TWICE DAILY NEEDED FOR CONSTIPATION. ONETOUCH DELICA PLUS LANCET 33 gauge medroxyPROGESTERone (PROVERA) 10 mg tablet metoclopramide HCl (REGLAN) 10 mg tablet Take 5 mg by mouth. metoprolol tartrate, short acting, (LOPRESSOR) 50 mg tablet Take 1 tablet by mouth every 12 hours. ULTICARE PEN NEEDLE 32 gauge x 1/4 polyethylene glycol 3350 17 gram/dose powder MIX 4 GRAMS WITH LIQUID AND DRINK ONCE DAILY rizatriptan (MAXALT) 10 mg tablet Take by mouth as needed. simvastatin (ZOCOR) 20 mg tablet Take 20 mg by mouth daily at bedtime. sucralfate (CARAFATE) 1 gram tablet Take 1 g by mouth four times daily. hydrOXYzine pamoate (VISTARIL) 25 mg capsule ferrous sulfate 325 mg (65 mg iron) tablet Take 325 mg by mouth every other day. spironolactone (ALDACTONE) 50 mg tablet Take 50 mg by mouth two times a day. pantoprazole DR (PROTONIX) 20 mg tablet Take 40 mg by mouth once daily. lithium carbonate (ESKALITH) 300 mg capsule Take 300 mg by mouth daily after breakfast. cholecalciferol, Vitamin D3, (VITAMIN D3) 1,250 mcg (50,000 unit) cap capsule Take 1 capsule by mouth one time a week. (Patient not taking: Reported on 10/26/2023) No current facility-administered medications on file prior to visit. ALLERGIES: ALLERGIES Allergen Reactions Ondansetron Anaphylaxis, Other: See Comments Tongue swelling Broccoli Diarrhea Cauliflower Diarrhea Anti Depressants [T* Other: See Comments Patient states she must take anti-depressants with a mood stabilizer or else she becomes suicidal. Escitalopram Other: See Comments Suicidal ideation suicidal Suicidal thoughts Gluten Flour Diarrhea Lactase Diarrhea, GI Upset Eats 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 Normal [facility] 12-19-2023 [facility] Telephone (ENWSTR) -------- MARION GUTIERREZ ([id number]) 1995 F Date Time Provider Department 12/19/23 JEY JOHNSON ENWSTR During your visit today, we recorded the following information about you: Amy Bragg RN 12/19/2023 12:20 PM Signed Signed record release received from [facility] requesting previous OV notes from Dr. Johnson. Pt had 1 OV in 10/2023. This was faxed electronically through [employer]. Amy Bragg RN December 19, 2023 12:20 PM Allergies As of Date: 12/19/2023 Noted Allergy Reaction ONDANSETRON 07/14/2016 10 - Anaphylaxis 14 - Other: See Comments Comments: Tongue swelling BROCCOLI 04/08/2023 6 - Diarrhea CAULIFLOWER 04/08/2023 6 - Diarrhea ANTI DEPRESSANTS (TRICYCLIC ANTID*08/21/2016 14 - Other: See Comments Comments: Patient states she must take anti-depressants with a mood stabilizer or else she becomes suicidal. ESCITALOPRAM 07/14/2016 14 - Other: See Comments Comments: Suicidal ideation suicidal Suicidal thoughts GLUTEN FLOUR 08/21/2016 6 - Diarrhea LACTASE 09/12/2011 6 - Diarrhea 8 - GI Upset Comments: Eats dairy products, just limit amount LEXAPRO (ESCITALOPRAM OXALATE) 01/13/2019 1 - Mental Status Change SEASONAL ALLERGIES 12/02/2012 3 - Cough TOMATO 04/08/2023 8 - GI Upset ZOFRAN (PF) IN DEXTROSE (ONDANSET*08/21/2016 7 - Swelling 8 - GI Upset METFORMIN 02/28/2022 6 - Diarrhea 8 - GI Upset POLLEN EXTRACTS 12/09/2020 4 - Hives 5 - Intolerance Date Reviewed: 10/26/2023 Reviewed by: Sarah Munson MA - Fully Assessed Reason for Visit: Release Of Medical Records [2017] Prescriptions as of 12/19/2023 - ARIPiprazole lauroxil ER (ARISTADA) 441 mg/1.6 mL injection Inject intramuscularly. Very 28 days - ONETOUCH VERIO TEST STRIPS test strip - Cyanocobalamin 1,000 mcg subl Take 1,000 mcg by mouth. - AJOVY SYRINGE 225 mg/1.5 mL syringe INJECT 1.5ML (1 SYRINGE) SUBCUTANEOUSLY EVERY MONTH - hyoscyamine (LEVSIN) 0.125 mg tablet - imipramine HCl (TOFRANIL) 25 mg tablet Take by mouth. - lactulose 10 gram/15 mL solution TAKE 45 ML BY MOUTH TWICE DAILY NEEDED FOR CONSTIPATION. - ONETOUCH DELICA PLUS LANCET 33 gauge - medroxyPROGESTERone (PROVERA) 10 mg tablet - metoclopramide HCl (REGLAN) 10 mg tablet Take 5 mg by mouth. - metoprolol tartrate, short acting, (LOPRESSOR) 50 mg tablet Take 1 tablet by mouth every 12 hours. - ULTICARE PEN NEEDLE 32 gauge x 1/4 - polyethylene glycol 3350 17 gram/dose powder MIX 4 GRAMS WITH LIQUID AND DRINK ONCE DAILY - rizatriptan (MAXALT) 10 mg tablet Take by mouth as needed. - simvastatin (ZOCOR) 20 mg tablet Take 20 mg by mouth daily at bedtime. - sucralfate (CARAFATE) 1 gram tablet Take 1 g by mouth four times daily. - hydrOXYzine pamoate (VISTARIL) 25 mg capsule - ferrous sulfate 325 mg (65 mg iron) tablet Take 325 mg by mouth every other day. - spironolactone (ALDACTONE) 50 mg tablet Take 50 mg by mouth two times a day. - pantoprazole DR (PROTONIX) 20 mg tablet Take 40 mg by mouth once daily. - lithium carbonate (ESKALITH) 300 mg capsule Take 300 mg by mouth daily after breakfast. - cholecalciferol, Vitamin D3, (VITAMIN D3) 1,250 mcg (50,000 unit) cap capsule Take 1 capsule by mouth one time a week. Problem List As Of Date 12/19/2023 Noted Resolved Bipolar disorder (HCC) [F31.9] 05/20/2016 Autism spectrum disorder [F84.0] Ophthalmic migraine [G43.109] 08/21/2016 Headache, chronic daily [R51.9] 08/21/2016 High myopia [H52.10] 08/21/2016 Obesity, Class III, BMI 40-49.9 (morbid obesity*10/26/2023 Encounter Status:Closed by AMY BRAGG on 12/19/23 Normal [facility] Culture, Anaerobic Any Sourc trey 12-10-2023 CUAN No anaerobic bacteri a isolated. Normal [facility] Comment on above: Performed By: #### M 100.2000, M100.3000, M100.4001 ####[facility] [address] [place], [address] Wound Cultureon 12-08-2023 WC Normal [facility] Comment on above: Performed By: #### M 100.2000, M100.3000, M100.4001 ####[facility] [address] [place], [address] Gram Stainon 12-06-2023 GS Gram Stain Rare Red Blood Cells No organisms seen Normal [facility] Comment on above: Performed By: #### M 100.2000, M100.3000, M100.4001 ####[facility] [address] [place], [address] ACTH Plas-mCncon 12-05-2023 Corticotropin (P) [Mass/Vol] 11.8 pg/mL Normal 7.2-63.3 [facility] Comment on above: Order Comment: Speci men Type: BLOOD SPECIMENOrdering Facility: [facility] Address: [address] [place] [place] [address] Result Comment: ACTH Reference Range: 7-10 am: 7.2 - 63.3 pg/mL Performed By: #### 2 141-0 ####[facility] [id number] [facility] [id number] [place] [address] [place] BIOAVAIL TESTO/SHBG, FEM AND CHILDon 12-05-2023 SEX HORMONE BIND GLB 56 nmol/L Normal 25-122 [facility] Comment on above: Order Comment: Speci men Type: BLOOD SPECIMENOrdering Facility: [facility] Address: [address] [place] [address] Result Comment: REFE RENCE INTERVAL: Sex Hormone Binding Globulin Access complete set of age- and/or gender-specific reference intervals for this test in the [facility] Test Directory ([employer]). Performed By: #### B TSTFC, HPROG ####[facility]ORATORIESCLIA [id number] [place] [address] TESTO BIOAVAILABLE 19.4 ng/dL Normal 2.2-20.6 [facility] Comment on above: Order Comment: Speci men Type: BLOOD SPECIMENOrdering Facility: [facility] Address: [address] [place] [place] [address] Result Comment: REFE RENCE INTERVAL: Testosterone, Bioavailable by Plant Operator/Shift Supervisor Females: Postmenopausal: 1.5 - 9.4 ng/dL INTERPRETIVE INFORMATION: Testosterone, Bioavailable by Plant Operator/Shift Supervisor Bioavailable testosterone concentration is calculated using total testosterone (measured by mass spectrometry) and the binding constant of testosterone and sex hormone-binding globulin (SHBG) and/or albumin. For individuals on testosterone-suppressing hormone therapies (e.g., antiandrogens or estrogens), refer to cisgender female reference intervals. For a complete set of all established reference intervals, refer to [employer]/Tests/Pub/[id number]. Performed By: #### B TSTFC, HPROG ####[employer] [id number] [place] [address] Testosterone [Mass/Vol] 63 ng/dL High 9-55 [facility] Comment on above: Order Comment: Speci men Type: BLOOD SPECIMENOrdering Facility: [facility] Address: [address] [place] [address] Result Comment: REFE RENCE INTERVAL: Testosterone by Plant Operator/Shift Supervisor Females Premenopausal 9-55 ng/dL Postmenopausal 5-32 ng/dL INTERPRETIVE INFORMATION: Testosterone by Plant Operator/Shift Supervisor Free or bioavailable testosterone measurements may provide supportive information. For individuals on testosterone-suppressing hormone therapies (e.g., antiandrogens or estrogens), refer to cisgender female reference intervals. For a complete set of all established reference intervals, refer to [employer]/Tests/Pub/[id number]. This test was developed and its performance characteristics determined by [facility]. It has not been cleared or approved by the US Food and Drug Administration. This test was performed in a CLIA certified laboratory and is intended for clinical purposes. Performed By: #### B TSTFC, HPROG ####[employer] TechnologyCLIA [id number] [place] [address] TESTOSTERONE FREE 8.0 pg/mL High 0.8-7.4 [facility] Comment on above: Order Comment: Speci men Type: BLOOD SPECIMENOrdering Facility: [facility] Address: [address] [place] [address] Result Comment: REFE RENCE INTERVAL: Testosterone, Free by Plant Operator/Shift Supervisor Females Postmenopausal: 0.6 - 3.8 pg/mL INTERPRETIVE INFORMATION: Testosterone, Free by Plant Operator/Shift Supervisor Free testosterone concentration is calculated using total testosterone (measured by mass spectrometry) and the binding constant of testosterone and sex hormone-binding globulin (SHBG). For individuals on testosterone-suppressing hormone therapies (e.g., antiandrogens or estrogens), refer to cisgender female reference intervals. For a complete set of all established reference intervals, refer to [employer]/Tests/Pub/[id number]. This test was developed and its performance characteristics determined by [facility]. It has not been cleared or approved by the US Food and Drug Administration. This test was performed in a CLIA certified laboratory and is intended for clinical purposes. Performed By: [facility] [address] [place] [address] Maint Mechanic: Mallika Thao MD, PhD CLIA Number: [id number] Performed By: #### B TSTFC, HPROG ####[facility] [id number] [place] [address] Kanu Nava 12-05-19 Cortisol [Mass/Vol] 13.6 ug/dL Normal 4.8-19.5 [facility] Comment on above: Order Comment: Speci men Type: BLOOD SPECIMENOrdering Facility: [facility] Address: [address] [place] [address] Result Comment: Prov ided reference range is from 6-10 AM sample collection time. Cortisol Reference Range: 6-10 AM = 4.8-19.5 ug/dL, 4-8 PM = 2.5-11.9 ug/dL Performed By: #### C VFLRS #### [facility] CLIA [id number] [address] [place] [address] [id number] [place] [address] [place] DHEA-S BLDon 12-05-2023 DHEA-S [Mass/Vol] 72.8 ug/dL Low 98.8-340.0 [facility] Comment on above: Order Comment: Speci men Type: BLOOD SPECIMENOrdering Facility: [facility] Address: [address] [place] [address] Result Comment: Refe rence ranges are age and gender specific. For additional information, reference range tables can be found in the laboratory test directory. The normal values are based on the following source: Dehydroepiandrosterone sulfate (DHEA S) [package insert V 17.0 [place] Islander]. [employer], [place], [place]: September 2012. Performed By: #### C VFLRS #### [facility] CLIA [id number] [address] [place] [address] [place] Estradiol SerPl-mCncon 12-04 E2 [Mass/Vol] 66 pg/mL Normal [facility] Comment on above: Order Comment: Speci men Type: BLOOD SPECIMENOrdering Facility: [facility] Address: [address] [place] [address] Result Comment: This test is not suitable for patients receiving treatment with the drug Fulvestrant (Faslodex). The drug causes an interference leading to falsely elevated estradiol results. Menstrual cycle Estradiol reference ranges: Follicular : < 234 pg/mL Ovulation : 41 to 398 pg/mL Luteal : < 342 pg/mL Estradiol reference ranges vary by gestational period: First trimester : 154 to 3243 pg/mL Second trimester : 1561 to 16692 pg/mL Third trimester : 8285 to >35986 pg/mL Post-menopausal Estradiol reference range: < 41 pg/mL Reference: 1. Estradiol - E2 (Estradiol III) [package insert V 3.0 [place]]. [employer], [place], [place], July 2015. Performed By: #### C VFLRS #### [facility] CLIA [id number] [address] [place] [address] [place] FSH SerPl-aCncon 12-05-2023 Follitropin Qn 4.2 m[IU]/mL Normal See comment [facility] Comment on above: Order Comment: Speci men Type: BLOOD SPECIMENOrdering Facility: [facility] Address: [address] [place] [address] Result Comment: Refe rence range: Follicular: 3.5-12.5 mIU/mL Ovulation: 4.7-21.5 mIU/mL Luteal: 1.7-7.7 mIU/mL Postmenopausal: 25.8-134.8 mIU/mL Performed By: #### C VFLRS #### [facility] CLIA [id number] [address] [place] [address] [id number] [place] [address] OF [facility] HYDROXYPROGESTERONE-17on 17-HYDROXYPROGESTERONE QUANTITATIVE BY HPLC-MS/MS, SERUM OR PLASMA 48.26 ng/dL Normal <=206.00 [facility] Comment on above: Order Comment: Speci men Type: BLOOD SPECIMENOrdering Facility: [facility] Address: [address] [place] [place] [address] Result Comment: INTERPRETIVE INFORMATION for 17-Hydroxyprogesterone in females: Follicular 15 to 70 ng/dL Luteal 35 to 290 ng/dL REFERENCE INTERVAL: 17-Hydroxyprogesterone Qnt, HPLC-MS/MS Access complete set of age- and/or gender-specific reference intervals for this test in the [facility] Test [facility] ([employer]). This test was developed and its performance characteristics determined by [facility]. It has not been cleared or approved by the US Food and Drug Administration. This test was performed in a CLIA certified laboratory and is intended for clinical purposes. Performed By: [facility] [address] [place] [address] Maint Mechanic: Mallika Thao MD, PhD CLIA Number: [id number] Performed By: #### B TSTFC, HPROG ####[facility] [id number] [place] [address] HbA1c (Bld)on 12-05-2023 Average glucose Estimated from glycated hemoglobin (Bld) [Mass/Vol] 117 mg/dL Normal [facility] Comment on above: Order Comment: Speci men Type: BLOOD SPECIMENOrdering Facility: [facility] Address: [address] [place] [address] Result Comment: eAG: (Estimated average glucose) is a calculated value from HgbA1c and is sales representative consultant of the average blood glucose level in the last 2-3 month period. Performed By: #### 5 5454-3 ####[facility] LABCLIA [id number] [place] [address] [place] HbA1c (Bld) [Mass fraction] 5.7 % High 4.3-5.6 [facility] Comment on above: Order Comment: Speci men Type: BLOOD SPECIMENOrdering Facility: [facility] Address: [address] [place] [address] Result Comment: [place] Diabetes Association guidelines indicate that patients with HgbA1c in the range 5.7-6.4% are at increased risk for development of diabetes, and intervention by lifestyle modification may be beneficial. HgbA1c greater or equal to 6.5% is considered diagnostic of diabetes. Performed By: #### 5 5454-3 ####[facility] LABIA [id number] [place] [address] [place] Insulin SerPl-aCncon 024 Insulin Qn 97.9 u[IU]/mL High 3.0-25.0 [facility] Comment on above: Order Comment: Speci men Type: BLOOD SPECIMENOrdering Facility: [facility] Address: [address] [place] [address] Performed By: #### 2 0448-7 ####[facility] LABIA [id number] [place] [address] [place] LH SerPl-aCncon 12-05-2023 Lutropin Qn 6.7 m[IU]/mL Normal See comment [facility] Comment on above: Order Comment: Speci men Type: BLOOD SPECIMENOrdering Facility: [facility] Address: [address] [place] [address] Result Comment: Refe rence range: Follicular: 2.4-12.6 mIU/mL Midcycle: 14.0-95.6 mIU/mL Luteal: 1.0-11.4 mIU/mL [place]: 7.7-58.5 mIU/mL Performed By: #### C VFLRS #### [facility] CLIA [id number] [address] [place] [address] [place], Bld SerPl-sCncon [place] [Moles/Vol] 0.6 mmol/L Normal 0.6-1.2 [facility] Comment on above: Order Comment: Speci men Type: BLOOD SPECIMENOrdering Facility: [facility] Address: [address] [place] [address] Result Comment: Refe rence ranges and high/low indicator flags are provided as general guidelines only. The treating physician must determine appropriate target levels/dosing based on the specific clinical situation. Performed By: #### 1 4334-7 ####[facility] LABCLIA [id number] [place] [address] [place] Prolactin SerPl-mCncon 12-04 Prolactin [Mass/Vol] 15.2 ng/mL Normal 4.4-33.8 [facility] Comment on above: Order Comment: Speci men Type: BLOOD SPECIMENOrdering Facility: [facility] Address: [address] [place] [address] Result Comment: Prol actin test is performed using the [employer] Electrochemiluminescence Immunoassay method. Results obtained with different methods or kits cannot be used interchangeably. Performed By: #### C VFLRS #### [facility] CLIA [id number] [address] [place] [address] [place] Renal function 2000 panelon 12-05-2023 Albumin [Mass/Vol] 4.0 g/dL Normal 3.9-4.9 [facility] Comment on above: Order Comment: Speci men Type: BLOOD SPECIMENOrdering Facility: [facility] Address: [address] [place] [address] Performed By: #### 2 4362-6 ####[facility] [id number] [place] [address] [place] Anion gap [Moles/Vol] 7 mmol/L Low 8-15 [facility] Comment on above: Order Comment: Speci men Type: BLOOD SPECIMENOrdering Facility: [facility] Address: [address] [place] [address] Performed By: #### 2 4362-6 ####[facility] MILLNERIWELMERLIA [id number] [place] [address] [place] Calcium [Mass/Vol] 9.3 mg/dL Normal 8.5-10.2 [facility] Comment on above: Order Comment: Speci men Type: BLOOD SPECIMENOrdering Facility: [facility] Address: [address] [place] [address] Performed By: #### 2 4362-6 ####[facility] MILLLINNEALIA [id number] [place] [address] [place] Chloride [Moles/Vol] 109 mmol/L High 98-107 [facility] Comment on above: Order Comment: Speci men Type: BLOOD SPECIMENOrdering Facility: [facility] Address: [address] [place] [address] Performed By: #### 2 4362-6 ####[facility] MILLNERIWELMERLIA [id number] [place] [address] [place] CO2 [Moles/Vol] 23 mmol/L Normal 22-30 [facility] Comment on above: Order Comment: Speci men Type: BLOOD SPECIMENOrdering Facility: [facility] Address: [address] [place] [address] Performed By: #### 2 4362-6 ####[facility] MILLTOWNCLIA [id number] [place] [address] [place] Creatinine [Mass/Vol] 0.62 mg/dL Normal 0.58-0.96 [facility] Comment on above: Order Comment: Speci men Type: BLOOD SPECIMENOrdering Facility: [facility] Address: [address] [place] [address] Performed By: #### 2 4362-6 ####[facility]CL[facility] [id number] [place] [address] [place] Creatinine and Glomerular filtration rate.predicted panel (S/P/Bld) 125 mL/min/1.73m??? Normal >=60 [facility] Comment on above: Order Comment: Speci men Type: BLOOD SPECIMENOrdering Facility: [facility] Address: [address] [place] [address] Result Comment: Tawana mated Glomerular Filtration Rate (eGFR) is calculated using the 2020 CKD-EPI creatinine equation. This equation utilizes serum creatinine, sex, and age as parameters. The creatinine assay has traceable calibration to isotope dilution-mass spectrometry. Refer to KDIGO guidelines for clinical interpretation. In patients with unstable renal function, e.g. those with acute kidney injury, the eGFR may not accurately reflect actual GFR. Performed By: #### 2 4362-6 ####[facility]ITAL[facility]CLI [id number] [place] [address] [place] Glucose [Mass/Vol] 110 mg/dL High 74-99 [facility] Comment on above: Order Comment: Specbriana garcia Type: BLOOD SPECIMENOrdering Facility: [facility] Address: [address] [place] [address] Result Comment: The [place] Diabetes Association (ADA) provides guidance for cutoff values for fasting glucose and random glucose. The ADA defines fasting as no caloric intake for at least 8 hours. Fasting plasma glucose results between 100 to 125 mg/dL indicate increased risk for diabetes (prediabetes). Fasting plasma glucose results greater than or equal to 126 mg/dL meet the criteria for diagnosis of diabetes. In the absence of unequivocal hyperglycemia, results should be confirmed by repeat testing. In a patient with classic symptoms of hyperglycemia or hyperglycemic crisis, random plasma glucose results greater than or equal to 200 mg/dL meet the criteria for diagnosis of diabetes. Reference: Standards of Medical Care in Diabetes 2016, [place] Diabetes Association. Diabetes Care. 2016.39(Suppl 1). Performed By: #### 2 4362-6 ####[facility] TENANICOLENCLIBERTAD [id number] [place] [address] [place] Phosphate [Mass/Vol] 3.5 mg/dL Normal 2.7-4.8 [facility] Comment on above: Order Comment: Speci men Type: BLOOD SPECIMENOrdering Facility: [facility] [facility] Address: [address] [place] [address] Performed By: #### 2 4362-6 ####[facility]ITALNCLIBERTAD [id number] [place] [address] [place] Potassium [Moles/Vol] 4.4 mmol/L Normal 3.7-5.1 [facility] Comment on above: Order Comment: Speci men Type: BLOOD SPECIMENOrdering Facility: [facility] Address: [address] [place] [address] Performed By: #### 2 4362-6 ####[facility]CLIA [id number] [place] [address] [place] Sodium [Moles/Vol] 139 mmol/L Normal 136-144 [facility] Comment on above: Order Comment: Speci men Type: BLOOD SPECIMENOrdering Facility: [facility] Address: [address] [place] [address] Performed By: #### 2 4362-6 ####[facility]ITALNCLIA [id number] [place] [address] [place] Urea nitrogen [Mass/Vol] 16 mg/dL Normal 7-21 [facility] Comment on above: Order Comment: Speci men Type: BLOOD SPECIMENOrdering Facility: [facility] Address: [address] [place] [address] Performed By: #### 2 4362-6 ####[facility] [id number] [place] [id number] [place] T4 Free SerPl-mCncon 024 Free T4 [Mass/Vol] 1.3 ng/dL Normal 0.9-1.7 [facility] Comment on above: Order Comment: Speci men Type: BLOOD SPECIMENOrdering Facility: [facility] Address: [address] [place] [address] Performed By: #### C VFLRS #### [facility] CLIA [id number] [address] [place] [address] [place] TSH SerPl-aCncon 12-05-2023 TSH Qn 2.940 m[IU]/L Normal 0.270-4.200 [facility] Comment on above: Order Comment: Speci men Type: BLOOD SPECIMENOrdering Facility: [facility] Address: [address] [place] [address] Result Comment: If t he patient is , TSH reference range varies by gestational period: First Trimester (weeks 9-12): 0.180-2.990 mIU/L Second Trimester: 0.110-3.980 mIU/L Third Trimester: 0.480-4.710 mIU/L Polo Crystal et al. A Practical Approach for the Verifications and Determination of Site- and Trimester-Specific Reference Intervals for Thyroid Function tests in . Thyroid, 2019:29:3:412-420. Darren Ray, et al. 2017 Guidelines of the [place] Thyroid Association for the Diagnosis and Management of Thyroid Disease during and the . Thyroid, 2017:27:3:315-389. Performed By: #### C VFLRS #### [facility] CLIA [id number] [address] [place] [address] [place] Wound Ctr History AND Physic harriet 12-05-2023 Wound Ctr History & Physical Normal [facility] Basic Metabolic Profile (BMP )on 11-27-2023 BUN/CRE 26.1 RATIO High 10-20 [facility] Comment on above: Performed By: #### L 501.9060, L500.2500, L300.8000 ####[facility] [address] [place], [address] [place],Total 8.9 mg/dL Normal 8.5-10.1 [facility] Comment on above: Performed By: #### L 501.9060, L500.2500, L300.8000 ####[facility] [address] [place], [address] Chloride [Moles/Vol] 110 mmol/L High 98-107 [facility] Comment on above: Performed By: #### L 501.9060, L500.2500, L300.8000 ####[facility] [address] [place], [address] CO2 [Moles/Vol] 23.0 mmol/L Normal 21.0-32.0 [facility] Comment on above: Performed By: #### L 501.9060, L500.2500, L300.8000 ####[facility] [address] [place], [address] Creatinine [Mass/Vol] 0.61 mg/dL Normal 0.55-1.02 [facility] Comment on above: Result Comment: The validity of the calculated GFR GFRAA in patients over70 years has not been determined. Clinical correlation isessential. Performed By: #### L 501.9060, L500.2500, L300.8000 ####[facility] [address] [place], [address] ECRCL 198.44 ml/min Normal [facility] Comment on above: Performed By: #### L 501.9060, L500.2500, L300.8000 ####[facility] [address] [place], [address] EST GFR - AA 150 mL/min Normal >60 [facility] Comment on above: Result Comment: Afri can [place] GFR Calc Performed By: #### L 501.9060, L500.2500, L300.8000 ####[facility] [address] [place], [address] GAP 4 Low 5-15 [facility] Comment on above: Performed By: #### L 501.9060, L500.2500, L300.8000 ####[facility] [address] [place], [address] GFR/1.73 sq M.predicted among non-blacks MDRD (S/P/Bld) [Vol rate/Area] 124 mL/min/{1.73_m2} Normal >60 [facility] Comment on above: Result Comment: Non- GFR Calc Performed By: #### L 501.9060, L500.2500, L300.8000 ####[facility] [address] [place], [address] Glucose [Mass/Vol] 116 mg/dL High 74-106 [facility] Comment on above: Result Comment: Fast ing Glucose result from 100 to 125 mg/dLsuggests IMPAIRED HOMEOSTASIS per A.D.A. criteria. Performed By: #### L 501.9060, L500.2500, L300.8000 ####[facility] [address] [place], [address] Potassium [Moles/Vol] 5.1 mmol/L Normal 3.5-5.1 [facility] Comment on above: Performed By: #### L 501.9060, L500.2500, L300.8000 ####[facility] [address] [place], [address] Sodium [Moles/Vol] 138 mmol/L Normal 136-145 [facility] Comment on above: Performed By: #### L 501.9060, L500.2500, L300.8000 ####[facility] [address] [place], [address] Urea nitrogen [Mass/Vol] 16 mg/dL Normal 7-18 [facility] Comment on above: Performed By: #### L 501.9060, L500.2500, L300.8000 ####[facility] [address] [place], [address] CNOVon 11-27-2023 CNOV Office Visit (UCWSTR ) -------- MARION GUTIERREZ ([id number]) 1995 F Date Time Provider Department 11/27/23 7:45 PM [facility] During your visit today, we recorded the following information about you: Louis Schmidt APRN.INTERNAL COMBUSTION ENGINEER 11/27/2023 7:55 PM Signed Patient came with complaints of burning in both arms. Patient says is getting increasingly worse. Patient says she was seen in the ER and they did ultrasound the left. Patient says the right seems to be hurting much worse. Patient does have uncontrolled diabetes. Patient is also on clindamycin. Patient said they put her on clindamycin at the ER. At this time patient is being sent back to the ER as we do not have any testing available. Allergies As of Date: 11/27/2023 Noted Allergy Reaction ONDANSETRON 07/14/2016 10 - Anaphylaxis 14 - Other: See Comments Comments: Tongue swelling BROCCOLI 04/08/2023 6 - Diarrhea CAULIFLOWER 04/08/2023 6 - Diarrhea ANTI DEPRESSANTS (TRICYCLIC ANTID*08/21/2016 14 - Other: See Comments Comments: Patient states she must take anti-depressants with a mood stabilizer or else she becomes suicidal. ESCITALOPRAM 07/14/2016 14 - Other: See Comments Comments: Suicidal ideation suicidal Suicidal thoughts GLUTEN FLOUR 08/21/2016 6 - Diarrhea LACTASE 09/12/2011 6 - Diarrhea 8 - GI Upset Comments: Eats dairy products, just limit amount LEXAPRO (ESCITALOPRAM OXALATE) 01/13/2019 1 - Mental Status Change SEASONAL ALLERGIES 12/02/2012 3 - Cough TOMATO 04/08/2023 8 - GI Upset ZOFRAN (PF) IN DEXTROSE (ONDANSET*08/21/2016 7 - Swelling 8 - GI Upset METFORMIN 02/28/2022 6 - Diarrhea 8 - GI Upset POLLEN EXTRACTS 12/09/2020 4 - Hives 5 - Intolerance Date Reviewed: 10/26/2023 Reviewed by: Sarah Munson MA - Fully Assessed Primary Visit Diagnosis:Pain [R52] Prescriptions as of 11/27/2023 - ARIPiprazole lauroxil ER (ARISTADA) 441 mg/1.6 mL injection Inject intramuscularly. Very 28 days - ONETOUCH VERIO TEST STRIPS test strip - Cyanocobalamin 1,000 mcg subl Take 1,000 mcg by mouth. - AJOVY SYRINGE 225 mg/1.5 mL syringe INJECT 1.5ML (1 SYRINGE) SUBCUTANEOUSLY EVERY MONTH - hyoscyamine (LEVSIN) 0.125 mg tablet - imipramine HCl (TOFRANIL) 25 mg tablet Take by mouth. - lactulose 10 gram/15 mL solution TAKE 45 ML BY MOUTH TWICE DAILY NEEDED FOR CONSTIPATION. - ONETOUCH DELICA PLUS LANCET 33 gauge - medroxyPROGESTERone (PROVERA) 10 mg tablet - metoclopramide HCl (REGLAN) 10 mg tablet Take 5 mg by mouth. - metoprolol tartrate, short acting, (LOPRESSOR) 50 mg tablet Take 1 tablet by mouth every 12 hours. - ULTICARE PEN NEEDLE 32 gauge x 1/4 - polyethylene glycol 3350 17 gram/dose powder MIX 4 GRAMS WITH LIQUID AND DRINK ONCE DAILY - rizatriptan (MAXALT) 10 mg tablet Take by mouth as needed. - simvastatin (ZOCOR) 20 mg tablet Take 20 mg by mouth daily at bedtime. - sucralfate (CARAFATE) 1 gram tablet Take 1 g by mouth four times daily. - hydrOXYzine pamoate (VISTARIL) 25 mg capsule - ferrous sulfate 325 mg (65 mg iron) tablet Take 325 mg by mouth every other day. - spironolactone (ALDACTONE) 50 mg tablet Take 50 mg by mouth two times a day. - pantoprazole DR (PROTONIX) 20 mg tablet Take 40 mg by mouth once daily. - lithium carbonate (ESKALITH) 300 mg capsule Take 300 mg by mouth daily after breakfast. - cholecalciferol, Vitamin D3, (VITAMIN D3) 1,250 mcg (50,000 unit) cap capsule Take 1 capsule by mouth one time a week. Problem List As Of Date 11/27/2023 Noted Resolved Bipolar disorder (HCC) [F31.9] 05/20/2016 Autism spectrum disorder [F84.0] Ophthalmic migraine [G43.109] 08/21/2016 Headache, chronic daily [R51.9] 08/21/2016 High myopia [H52.10] 08/21/2016 Obesity, Class III, BMI 40-49.9 (morbid obesity*10/26/2023 Encounter Status:Closed by [facility] SCHMIDT on 11/27/23 Normal [facility] D-Dimer Quantitative (DVT/PE )on 11-27-2023 D-DIMER QUANT 0.27 FEU/ug/m Normal 0.27-0.49 [facility] Comment on above: Result Comment: NORM AL D-Dimer level (<0.50) indicates no DVT or PE. Performed By: #### L 501.9060, L500.2500, L300.8000 ####[facility] [address] [place], [place], [id number] Emergency Department Summary on 11-27-2023 Emergency Department Summary Normal [facility] Lithiumon 11-27-2023 LI 0.40 mmol/L Low 0.60-1.20 [facility] Comment on above: Result Comment: Mode rate Hemolysis, Result may be falsely increased. Performed By: #### L 501.9060, L500.2500, L300.8000 ####[facility] [address] [place], [place], [id number] Venous Duplex US, Unilateral on 11-21-2023 Venous Duplex US, Unilateral Normal [facility] CNOVon 10-26-2023 CNOV Office Visit (ENWSTR ) -------- MARION GUTIERREZ ([id number]) 1995 F Date Time Provider Department 10/26/23 3:00 PM JEY JOHNSON During your visit today, we recorded the following information about you: Temperature Pulse Weight Height 97.9 degrees 61/minute 127.2 kg 1.702 m Last Period 02/19/23 Jey Johnson MD 10/26/2023 6:35 PM Signed Endocrinology and Metabolism [place] [facility] Visit Note REASON FOR CONSULT: Evaluation of ovarian hyperandrogenism REQUESTING PHYSICIAN: No referring provider defined for this encounter. Phone: N/A Fax: My final recommendations will be communicated back to the requesting physician by way of shared medical record or letter via US mail. HPI Marion Gutierrez is a 28 year old female presenting as a new patient to me for evaluation of ovarian hyperandrogenism. She is accompanied by her mother Both are poor historians Also GI referral says, concerns for AI She has gastroparesis for the last 6 months or more She has dizziness and lightheadedness to the point that she passes out. She has bloating and low appetite, sleeping 16 hours a day in the last 2.5 months She has vomiting , diarrhea and both sometimes She has coloscopy yesterday and had polyps removed Hirsutism started: puberty Patient uses mechanical hair removal (i.e. tweezers/waxing/shaving) : cream weekly History of deepening of voice: No History of change in genitalia: No LMP: not specific, may be 8 months Menstrual flow: 3 days, mostly spotting for a day or so Menarche: 17 to 18 years old- mother thinks she was in 6th grade, patient reports she was in high school Number of Pregnancies: no Planning a : no Currently taking oral contraception: no. She used OCPs in the past 3 years ago Now she is on provera for 10 days each month She used metformin due to intolerance PAST MEDICAL HISTORY: PAST MEDICAL HISTORY No date: Autism spectrum disorder 05/2016: Bipolar disorder (HCC) No date: Borderline diabetic No date: Fatty liver No date: History of depression No date: IBS (irritable bowel syndrome) Comment: diarrhea No date: Iron deficiency anemia No date: Kyphosis PAST SURGICAL HISTORY: PAST SURGICAL HISTORY No date: ADDITIONAL SPINAL FUSION Comment: Thoraco-lumbar fusion No date: KNEE SURGERY HX; Left Comment: patellar fracture FAMILY HISTORY: FAMILY HISTORY Problem Relation Age of Onset Hypertension Father Heart Father Hypertension Mother Heart Mother Hypertension Brother Diabetes Paternal Grandfather Glaucoma Other SOCIAL HISTORY: Social History Tobacco Use Smoking status: Never Smokeless tobacco: Never Substance Use Topics Alcohol use: No Drug use: No MEDICATIONS: Current Outpatient Medications on File Prior to Visit Medication Sig ARIPiprazole lauroxil ER (ARISTADA) 441 mg/1.6 mL injection Inject intramuscularly. Very 28 days ONETOUCH VERIO TEST STRIPS test strip Cyanocobalamin 1,000 mcg subl Take 1,000 mcg by mouth. AJOVY SYRINGE 225 mg/1.5 mL syringe INJECT 1.5ML (1 SYRINGE) SUBCUTANEOUSLY EVERY MONTH hyoscyamine (LEVSIN) 0.125 mg tablet imipramine HCl (TOFRANIL) 25 mg tablet Take by mouth. lactulose 10 gram/15 mL solution TAKE 45 ML BY MOUTH TWICE DAILY NEEDED FOR CONSTIPATION. ONETOUCH DELICA PLUS LANCET 33 gauge medroxyPROGESTERone (PROVERA) 10 mg tablet metoclopramide HCl (REGLAN) 10 mg tablet Take 5 mg by mouth. metoprolol tartrate, short acting, (LOPRESSOR) 50 mg tablet Take 1 tablet by mouth every 12 hours. ULTICARE PEN NEEDLE 32 gauge x 1/4 polyethylene glycol 3350 17 gram/dose powder MIX 4 GRAMS WITH LIQUID AND DRINK ONCE DAILY rizatriptan (MAXALT) 10 mg tablet Take by mouth as needed. simvastatin (ZOCOR) 20 mg tablet Take 20 mg by mouth daily at bedtime. sucralfate (CARAFATE) 1 gram tablet Take 1 g by mouth four times daily. hydrOXYzine pamoate (VISTARIL) 25 mg capsule ferrous sulfate 325 mg (65 mg iron) tablet Take 325 mg by mouth every other day. spironolactone (ALDACTONE) 50 mg tablet Take 50 mg by mouth two times a day. pantoprazole DR (PROTONIX) 20 mg tablet Take 40 mg by mouth once daily. lithium carbonate (ESKALITH) 300 mg capsule Take 300 mg by mouth daily after breakfast. cholecalciferol, Vitamin D3, (VITAMIN D3) 1,250 mcg (50,000 unit) cap capsule Take 1 capsule by mouth one time a week. (Patient not taking: Reported on 10/26/2023) No current facility-administered medications on file prior to visit. ALLERGIES: ALLERGIES Allergen Reactions Ondansetron Anaphylaxis, Other: See Comments Tongue swelling Broccoli Diarrhea Cauliflower Diarrhea Anti Depressants [T* Other: See Comments Patient states she must take anti-depressants with a mood stabilizer or else she becomes suicidal. Escitalopram Other: See Comments Suicidal ideation suicidal Suici (more content not 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 Normal [facility] Bedside Glucoseon 2023 FINGERSTICK GLU 90 mg/dL Normal 74-106 [facility] Comment on above: Result Comment: KENNY CASILLAS OF PATIENT CARE PER NURSING PROTOCOL Performed By: #### L 501.080 ####[facility] [address] [place], [address] Colonoscopy Reporton 024 Colonoscopy Report Normal [facility] M7400.3302on 2023 M7400.3302 [facility] Comment on above: Performed By: #### M 600.5000, M7400.3302, L7000.0700 ####[facility] [address] [place], [address] MR/POSTOP.ANEon 2023 MR/POSTOP.ANE [facility] MR/QXKEGPMX9at 2023 MR/POSTOPAN2 [facility] Ova and Parasites 8623on OP [facility] Comment on above: Performed By: #### M 600.5000, M7400.3302, L7000.0700 ####[facility] [address] [place], [address] ,Urineon 2023 Beta HCG ( test) Ql (U) [facility] Comment on above: Result Comment: Canc elled via OM: Pt refuses the test Performed By: #### L 400.7600 ####[facility] [address] [place], [address] INTERNAL QC OK? Normal [facility] Comment on above: Result Comment: Canc elled via OM: Pt refuses the test Performed By: #### L 400.7600 ####[facility] [address] [place], [address] RECORD KIT LOT# Normal [facility] Comment on above: Result Comment: Canc elled via OM: Pt refuses the test Performed By: #### L 400.7600 ####[facility] [address] [place], [address] Surgery Specimen Level Kev 2023 Surgery Specimen Level IV Normal [facility] Comment on above: Performed By: #### P SUIV ####[facility] [address] [place], [address] Cardiology Visit Reporton Cardiology Visit Report Normal [facility] Catecholamines, Plasmaon DOPAMINE TNP Normal . [facility] Comment on above: Order Comment: Test( s) 707996-Vorbcfvpvgp; 126023-Iopjc Activity, Plasmawas developed and its performance characteristicsdetermined by [facility]. It has not been cleared or approvedby the Food and Drug Administration. Result Comment: Test not performed Performed By: #### L 3300.1800, L3430.0100, L3300.1050 ####[facility] [address] [place], [address] EPINEPHRINE TNP Normal . [facility] Comment on above: Order Comment: Test( s) 958100-Jaepczdngjp; 113302-Mpves Activity, Plasmawas developed and its performance characteristicsdetermined by [facility]. It has not been cleared or approvedby the Food and Drug Administration. Result Comment: Test not performed Performed By: #### L 3300.1800, L3430.0100, L3300.1050 ####[facility] [address] [place], [address] NOREPINEPHRINE TNP Normal . [facility] Comment on above: Order Comment: Test( s) 560847-Wosiypwnzuq; 152496-Zbsoe Activity, Plasmawas developed and its performance characteristicsdetermined by [facility]. It has not been cleared or approvedby the Food and Drug Administration. Result Comment: Test not performed. Insufficient specimen to perform orcomplete analysis.CONTACTED VANI AT YOUR FACILITY ON 10-12-2023 Performed By: #### L 3300.1800, L3430.0100, L3300.1050 ####[facility] [address] [place], [address] Gastrin, Serumon 10-19-2023 GASTRIN 134 pg/mL High 0-115 [facility] Comment on above: Order Comment: Test( s) 751259-Pyisvsphtre; 822229-Hslvq Activity, Plasmawas developed and its performance characteristicsdetermined by [facility]. It has not been cleared or approvedby the Food and Drug Administration. Result Comment: Siem [facility] Evolve IPte 2000 Immunochemiluminometric assay (ICMA)Values obtained with different assay methods or kits cannotbe used interchangeably. Results cannot be interpreted asabsolute evidence of the presence or absence of malignantdisease. Performed By: #### L 3300.1800, L3430.0100, L3300.1050 ####[facility] [address] [place], [address] Renin/Aldosterone Activityon 10-19-2023 ALD/RENIN RATIO 7.0 Normal 0.0-30.0 [facility] Comment on above: Order Comment: Test( s) 495648-Ridilqmnybw; 671808-Wgqui Activity, Plasmawas developed and its performance characteristicsdetermined by [facility]. It has not been cleared or approvedby the Food and Drug Administration. Result Comment: Unit s: ng/dL per ng/mL/hr Performed By: #### L 3300.1800, L3430.0100, L3300.1050 ####[facility] [address] [place], [address] ALDOSTERONE,S 41.2 ng/dL High 0.0-30.0 [facility] Comment on above: Order Comment: Test( s) 054289-Vstgzslvphr; 752265-Jrvar Activity, Plasmawas developed and its performance characteristicsdetermined by [facility]. It has not been cleared or approvedby the Food and Drug Administration. Performed By: #### L 3300.1800, L3430.0100, L3300.1050 ####[facility] [address] [place], [address] RENIN, PLASMA 5.892 ng/mL/hr High 0.167-5.380 [facility] Comment on above: Order Comment: Test( s) 212648-Diqvxmbzjve; 116711-Iyxqr Activity, Plasmawas developed and its performance characteristicsdetermined by [facility]. It has not been cleared or approvedby the Food and Drug Administration. Performed By: #### L 3300.1800, L3430.0100, L3300.1050 ####[facility] [address] [place], [address] Electrician Front Office Visit Reporton 10-17-2023 Electrician Front Office Visit Report Normal [facility] Calprotectin, Stoolon [address] 70 ug/g Normal 0-120 [facility] Comment on above: Result Comment: Conc entration Interpretation Follow-Up< 5 - 50 ug/g Normal None>50 -120 ug/g Borderline Re-evaluate in 4-6 weeks >120 ug/g Abnormal Repeat as clinically indicatedPerformed at: [address] [id number] Director: Harsh Harris MD, Phone: [phone] Performed By: #### M 504.3339, M9576.8596, L8026.0700 ####[facility] [address] [place], [address] Adrenocorticotropic Hormoneo n 10-15-2023 ACTH TNP Normal . [facility] Comment on above: Order Comment: N Result Comment: Test not performed. Test cancelled by Healthcare providerafter order was submitted to [facility].PATIENT WILL BE RECOLLECTEDCONTACTED ANA AT YOUR FACILITY ON 66-68-6039PCVZ reference interval for samples collected between 7 and10 AM. Performed By: #### M 100.0605, L3300.1000, M100.6796, L3430.0100, M100.637 ####[facility] [address] [place], [address] Catecholamines, Plasmaon DOPAMINE TNP Normal . [facility] Comment on above: Order Comment: N Result Comment: Test not performed Performed By: #### M 100.0605, L3300.1000, M100.6796, L3430.0100, M100.637 ####[facility] [address] [place], [address] EPINEPHRINE TNP Normal . [facility] Comment on above: Order Comment: N Result Comment: Test not performed Performed By: #### M 100.0605, L3300.1000, M100.6796, L3430.0100, M100.637 ####[facility] [address] [place], [address] NOREPINEPHRINE TNP Normal . [facility] Comment on above: Order Comment: N Result Comment: Test not performed. Test cancelled by Healthcare providerafter order was submitted to [facility].PATIENT WILL BE RECOLLECTEDCONTACTED ANA AT YOUR FACILITY ON 10-15-2023 Performed By: #### M 100.0605, L3300.1000, M100.6796, L3430.0100, M100.637 ####[facility] [address] [place], [address] CDIFF (PCR)on 10-12-2023 CDIFF Pending 027 027 NAP1-B1 Presumptive Negative *for epidemiolologic???use C. Diff PCR Negative- No toxigenic C. Diff Detected Normal [facility] Comment on above: Performed By: #### M 100.0605, L3300.1000, M100.6796, L3430.0100, M100.637 ####[facility] [address] [place], [address] ENTERIC PATHOGEN PANEL STOOL on 10-12-2023 EP PANEL Normal [facility] Comment on above: Performed By: #### M 100.0605, L3300.1000, M100.6796, L3430.0100, M100.637 ####[facility] [address] [place], [address] Stool Lactoferrin/WBCon 09-20 WBCST Normal Reference Ran ge = Negative Fecal WBC Lactoferrin Negative: No Fecal WBC Lactoferrin present Normal [facility] Comment on above: Performed By: #### M 100.0605, L3300.1000, M100.6796, L3430.0100, M100.637 ####[facility] [address] [place], [address] Insulin Levelon 10-11-2023 INSULIN,FASTING 70.5 uIU/mL High 2.6-24.9 [facility] Comment on above: Order Comment: Test( s) 165886-Fczavzizbtc; 712646-Ejetq Activity, Plasmawas developed and its performance characteristicsdetermined by [facility]. It has not been cleared or approvedby the Food and Drug Administration.N Performed By: #### L 801.1541, L3100.4810, L3400.1300, L3300.3500 ####[facility] [address] [place], [address] L3100.4810on 10-11-2023 Chromogranin A 186.2 ng/mL Abnormal 0.0-101.8 [facility] Comment on above: Order Comment: Test( s) [id number]-Jfmqzqylzsu; [id number] Activity, Plasmawas developed and its performance characteristicsdetermined by [employer]. It has not been cleared or approvedby the Food and Drug Administration.N Result Comment: Stereo Equipment Installer mogranin A performed by [employer]/Codasystem KRYPTORmethodologyValues obtained with different assay methods or kits cannotbe used interchangeably. Performed By: #### L 801.1541, L3100.4810, L3400.1300, L3300.3500 ####[facility] [address] [place], [address] Somatomedin Con 10-11-2023 SOMATOMEDIN C 102 ng/mL Normal 91-308 [facility] Comment on above: Order Comment: Test( s) [id number]-Gasnhomjwoj; [id number]-Zgqln Activity, Plasmawas developed and its performance characteristicsdetermined by [employer]. It has not been cleared or approvedby the Food and Drug Administration.N Performed By: #### L 801.1541, L3100.4810, L3400.1300, L3300.3500 ####[facility] [address] [place], [address] Gastrin, Serumon 10-10-2023 GASTRIN 95 pg/mL Normal 0-115 [facility] Comment on above: Order Comment: DR. Shabnam HA FORV FOOT Result Comment: Siem [facility] Immulite 2000 Immunochemiluminometric assay (ICMA)Values obtained with different assay methods or kits cannotbe used interchangeably. Results cannot be interpreted asabsolute evidence of the presence or absence of malignantdisease.Performed at: [address] [id number] Director: Harsh Harris MD, Phone: [phone] Performed By: #### L 3300.1800 ####[facility] [address] [place], [address] Gastroenterology Visit Repor ton 10-10-2023 Gastroenterology Visit Report Normal [facility] Miscellaneous Lab Procedureo n 10-09-2023 MISC LAB TEST Normal [facility] Comment on above: Order Comment: [facility] BLOODCORTISOL [id number] Result Comment: TEST RESULTS LIMITS Cortisol 8.8 ug/dL 6.2-19.4 Please Note: The reference interval and flagging for this test is for an AM collection. If this is a PM collection please use: Cortisol PM: 2.3-11.9 ___ TESTING PERFORMED AT [facility]. ORIGINAL REPORT ON FILE IN LAB CONTAINS ADDITIONAL TEST SITE INFORMATION. Performed By: #### L 801.1541, L3100.4810, L3400.1300, L3300.3500 ####[facility] [address] [place], [address] Surgery Visit Reporton 10-02 Surgery Visit Report Normal [facility] Abdomen/Pelvis W IV Cont ONL Yon 09-24-2023 Abdomen/Pelvis W IV Cont ONLY Normal [facility] CBC W/Diff, Automatedon 08- PLT EST ADEQUATE Normal ADEQ [facility] Comment on above: Performed By: #### L 100.0100, L501.2450, L500.4050 ####[facility] [address] [place], [address] 12 Lead EKGon 09-23-2023 12 Lead EKG Normal [facility] CORTISOL SERUMon 09-23-2023 CORTISOL 6.60 ug/dL Normal 3.44-22.45 [facility] Comment on above: Order Comment: erasmo tiwari Result Comment: Adul t (AM) 5.27 - 22.45 ug/dL Adult (PM) 3.44 - 16.76 ug/dLPlease note revised CORTISOL reference range khqfublav05/25/2020. Performed By: #### L 509.6000 ####[facility] [address] [place], [address] Comprehensive Metabolic Prof ilon 09-23-2023 Albumin [Mass/Vol] 3.2 g/dL Normal 3.2-5.0 [facility] Comment on above: Performed By: #### L 100.0100, L501.2450, L500.4050 ####[facility] [address] [place], [address] Albumin/Globulin [Mass ratio] 0.8 {ratio} Low 0.9-2.4 [facility] Comment on above: Performed By: #### L 100.0100, L501.2450, L500.4050 ####[facility] [address] [place], [address] ALK P 71 U/L Normal 45-117 [facility] Comment on above: Performed By: #### L 100.0100, L501.2450, L500.4050 ####[facility] [address] [place], [address] ALT [Catalytic activity/Vol] 59 U/L High 13-56 [facility] Comment on above: Performed By: #### L 100.0100, L501.2450, L500.4050 ####[facility] [address] [place], [address] AST [Catalytic activity/Vol] 36 U/L Normal 15-37 [facility] Comment on above: Result Comment: Mode rate Hemolysis, Result may be falsely increased. Performed By: #### L 100.0100, L501.2450, L500.4050 ####[facility] [address] [place], [address] Bilirubin [Mass/Vol] 0.40 mg/dL Normal 0.20-1.00 [facility] Comment on above: Result Comment: For patients on eltrombopag therapy, use of Dimension [place] TBIL is not recommended. Performed By: #### L 100.0100, L501.2450, L500.4050 ####[facility] [address] [place], [address] BUN/CRE 19.2 RATIO Normal 10-20 [facility] Comment on above: Performed By: #### L 100.0100, L501.2450, L500.4050 ####[facility] [address] [place], [address] CA,Total 9.4 mg/dL Normal 8.5-10.1 [facility] Comment on above: Performed By: #### L 100.0100, L501.2450, L500.4050 ####[facility] [address] [place], [address] Chloride [Moles/Vol] 109 mmol/L High 98-107 [facility] Comment on above: Performed By: #### L 100.0100, L501.2450, L500.4050 ####[facility] [address] [place], [address] CO2 [Moles/Vol] 24.0 mmol/L Normal 21.0-32.0 [facility] Comment on above: Performed By: #### L 100.0100, L501.2450, L500.4050 ####[facility] [address] [place], [address] Creatinine [Mass/Vol] 0.68 mg/dL Normal 0.55-1.02 [facility] Comment on above: Result Comment: The validity of the calculated GFR GFRAA in patients over70 years has not been determined. Clinical correlation isessential. Performed By: #### L 100.0100, L501.2450, L500.4050 ####[facility] [address] [place], [address] ECRCL 176.74 ml/min Normal [facility] Comment on above: Performed By: #### L 100.0100, L501.2450, L500.4050 ####[facility] [address] [place], [address] EST GFR - AA 135 mL/min Normal >60 [facility] Comment on above: Result Comment: Afri can Iraqi GFR Calc Performed By: #### L 100.0100, L501.2450, L500.4050 ####[facility] [address] [place], [address] GAP 5 Normal 5-15 [facility] Comment on above: Performed By: #### L 100.0100, L501.2450, L500.4050 ####[facility] [address] [place], [address] GFR/1.73 sq M.predicted among non-blacks MDRD (S/P/Bld) [Vol rate/Area] 111 mL/min/{1.73_m2} Normal >60 [facility] Comment on above: Result Comment: Non- GFR Calc Performed By: #### L 100.0100, L501.2450, L500.4050 ####[facility] [address] [place], [address] Globulin (S) [Mass/Vol] 3.8 g/dL Normal 2.2-4.2 [facility] Comment on above: Performed By: #### L 100.0100, L501.2450, L500.4050 ####[facility] [address] [place], [address] Glucose [Mass/Vol] 105 mg/dL Normal 74-106 [facility] Comment on above: Result Comment: Fast ing Glucose result from 100 to 125 mg/dLsuggests IMPAIRED HOMEOSTASIS per A.D.A. criteria. Performed By: #### L 100.0100, L501.2450, L500.4050 ####[facility] [address] [place], [address] Potassium [Moles/Vol] 5.4 mmol/L High 3.5-5.1 [facility] Comment on above: Result Comment: Mode rate Hemolysis, Result may be falsely increased. Performed By: #### L 100.0100, L501.2450, L500.4050 ####[facility] [address] [place], [address] Sodium [Moles/Vol] 138 mmol/L Normal 136-145 [facility] Comment on above: Performed By: #### L 100.0100, L501.2450, L500.4050 ####[facility] [address] [place], [address] T PROT 7.0 g/dL Normal 6.4-8.2 [facility] Comment on above: Performed By: #### L 100.0100, L501.2450, L500.4050 ####[facility] [address] [place], [address] Urea nitrogen [Mass/Vol] 13 mg/dL Normal 7-18 [facility] Comment on above: Performed By: #### L 100.0100, L501.2450, L500.4050 ####[facility] [address] [place], [address] Emergency Department Summary on 09-23-2023 Emergency Department Summary Normal [facility] Lipaseon 09-23-2023 Lipase [Catalytic activity/Vol] 34 U/L Normal 13-75 [facility] Comment on above: Result Comment: Kyle kimble note:LIPASE revised reference range effective 22.New Lipase methodology. Expected to produce lower valuesthan the previous assay method.NEW Reference Range: 13 - 75 U/L Performed By: #### L 100.0100, L501.2450, L500.4050 ####[facility] [address] [place], [address] Lithiumon 09-23-2023 LI 0.60 mmol/L Normal 0.60-1.20 [facility] Comment on above: Performed By: #### L 501.9060 ####[facility] [address] [place], [address] ,Serum,hCG Quali.on 09-23-2023 HCG, SERUM QUAL Negative Normal [facility] Comment on above: Performed By: #### L 700.6800 ####[facility] [address] [place], [address] Urinalysis, Completeon 09-22 BACTERIA 1+ /hpf Normal None Seen [facility] Comment on above: Order Comment: SELENA CTOR TO SPECIFY Performed By: #### L 400.0001 ####[facility] [address] [place], [address] WBC 0-5 SEEN Normal 0-5 [facility] Comment on above: Order Comment: SELENA CTOR TO SPECIFY Performed By: #### L 400.0001 ####[facility] [address] [place], [address] EPI,SQUAMOUS 0 SEEN Normal 5-10 [facility] Comment on above: Order Comment: SELENA CTOR TO SPECIFY Performed By: #### L 400.0001 ####[facility] [address] [place], [address] Mucus Ql (Urine sed) 0 SEEN Normal [facility] Comment on above: Order Comment: SELENA CTOR TO SPECIFY Performed By: #### L 400.0001 ####[facility] [address] [place], [address] RBC 0 SEEN Normal 0-5 [facility] Comment on above: Order Comment: SELENA CTOR TO SPECIFY Performed By: #### L 400.0001 ####[facility] [address] [place], [address] CNOVon 09-13-2023 CNOV Office Visit (WSTR ) -------- MARION GUTIERREZ ([id number]) 1995 F Date Time Provider Department 09/13/23 4:15 PM MJ BALDERAS [facility] During your visit today, we recorded the following information about you: Temperature Pulse Respiration Blood pressure 98.9 degrees 85/minute 20/minute 104/68 Weight 135.5 kg Mj Balderas MD 09/13/2023 4:57 PM Signed Patient presents with: Ear Pain: Left ear pain x 1 week HPI: Feeling left ear pain for 1 week; worsened the last couple days after a shower. Positive symptoms: Earache, Negative symptoms: Cough, Sinus pressure, Nasal Congestion, Rhinorrhea, Fever, otorrhea, Was able to remove some wax. PAST MEDICAL HISTORY Diagnosis Date Autism spectrum disorder Bipolar disorder (HCC) 05/2016 Borderline diabetic Fatty liver History of depression IBS (irritable bowel syndrome) diarrhea Iron deficiency anemia Kyphosis MEDICATIONS: Current Outpatient Medications Medication Sig hydrOXYzine pamoate (VISTARIL) 25 mg capsule ferrous sulfate 325 mg (65 mg iron) tablet Take 325 mg by mouth. spironolactone (ALDACTONE) 50 mg tablet Take by mouth. amitriptyline (ELAVIL) 25 mg tablet SPRINTEC 0.25-35 mg-mcg per tablet Take 1 tablet by mouth once daily. pantoprazole DR (PROTONIX) 20 mg tablet Take 1 tablet by mouth once daily. lithium carbonate (ESKALITH) 300 mg capsule Take 300 mg by mouth twice daily. cholecalciferol, Vitamin D3, (VITAMIN D3) 1,250 mcg (50,000 unit) cap capsule Take 1 capsule by mouth one time a week. ARIPiprazole (ABILIFY) 15 mg tablet Take 7.5 mg by mouth once daily. No current facility-administered medications for this visit. ALLERGIES: ALLERGIES Allergen Reactions Anti Depressants [T* Other: See Comments Patient states she must take anti-depressants with a mood stabilizer or else she becomes suicidal. Gluten Flour Diarrhea Lexapro [Escitalopr* Mental Status Change Zofran (Pf) In Dext* Swelling, GI Upset VITALS: BP 104/68 Pulse 85 Temp 37.2 ?C (98.9 ?F) Resp 20 Wt 135.5 kg (298 lb 11.6 oz) SpO2 95% PHYSICAL EXAM: GEN: Alert. No acute distress. Accompanied by her mother. HEENT: PERRL, EOMI, conjunctiva clear Ears: right canal clear. Left canal occluded by cerumen. TMs without erythema, bulge, or effusion after removal Sinuses: non-tender frontal sinus, non-tender maxillary sinuses Throat: moist mucous membranes, no erythema, no exudate Neck: supple, no thyromegaly, no lymphadenopathy HEART: regular rate and rhythm, no murmurs LUNGS: clear to auscultation, no wheezes or crackles, no increased WOB ASSESSMENT/PLAN: 1. Impacted cerumen of left ear - ICD9: 380.4, ICD10: H61.22 - AMBULATORY EAR LAVAGE/IRRIGATION successful removal by staff water irrigation. Canal clear and tympanic membrane without erythema/bulging/effusio n after the procedure. Discomfort and hearing decrease resolved. Mj Balderas MD Allergies As of Date: 09/13/2023 Noted Allergy Reaction ANTI DEPRESSANTS (TRICYCLIC ANTID*08/21/2016 14 - Other: See Comments Comments: Patient states she must take anti-depressants with a mood stabilizer or else she becomes suicidal. GLUTEN FLOUR 08/21/2016 6 - Diarrhea LEXAPRO (ESCITALOPRAM OXALATE) 01/13/2019 1 - Mental Status Change ZOFRAN (PF) IN DEXTROSE (ONDANSET*08/21/2016 7 - Swelling 8 - GI Upset Date Reviewed: 09/13/2023 Reviewed by: Steph Marcus MA - Fully Assessed Reason for Visit: Ear Pain [817] Cmt: Left ear pain x 1 week Primary Visit Diagnosis:Impacted cerumen of left ear [H61.22] Order(s):AMBULATORY EAR LAVAGE/IRRIGATION [[id number]] Order #: [id number] Prescriptions as of 09/13/2023 - hydrOXYzine pamoate (VISTARIL) 25 mg capsule - ferrous sulfate 325 mg (65 mg iron) tablet Take 325 mg by mouth. - spironolactone (ALDACTONE) 50 mg tablet Take by mouth. - amitriptyline (ELAVIL) 25 mg tablet - SPRINTEC 0.25-35 mg-mcg per tablet Take 1 tablet by mouth once daily. - pantoprazole DR (PROTONIX) 20 mg tablet Take 1 tablet by mouth once daily. - lithium carbonate (ESKALITH) 300 mg capsule Take 300 mg by mouth twice daily. - cholecalciferol, Vitamin D3, (VITAMIN D3) 1,250 mcg (50,000 unit) cap capsule Take 1 capsule by mouth one time a week. - ARIPiprazole (ABILIFY) 15 mg tablet Take 7.5 mg by mouth once daily. Problem List As Of Date 09/13/2023 Noted Resolved Bipolar disorder (HCC) [F31.9] 05/20/2016 Autism spectrum disorder [F84.0] Ophthalmic migraine [G43.109] 08/21/2016 Headache, chronic daily [R51.9] 08/21/2016 High myopia [H52.10] 08/21/2016 Encounter Status:Closed by MJ BALDERAS on 09/13/23 Normal [facility] Absolute lymphocyte countOrd ered By: Presley Ibarra on 06-03-2023 Lymphocytes Auto (Unsp spec) [#/Vol] 3.04 10*3/uL 0.83-4.51 [facility] Automated lymphocyte count a s percentage of total leukocytesOrdered By: Presley Ibarra on 06-03-2023 Lymphocytes/100 WBC Auto (Unsp spec) 27.2 % 19-41 [facility] Basophil percentageOrdered B y: Presley Ibarra on 06-03-2023 Basophils/100 WBC (Bld) 0.5 % 0-1 [facility] Chloride [Moles/Vol] 108 mmol/L 98-107 [facility] Eosin[facility]/100 WBC (Bld) 1.5 % 0-5 [facility] Glucose [Mass/Vol] 99 mg/dL 74-106 [facility] Hemoglobin (Bld) [Mass/Vol] 12.9 g/dL 12.0-15.0 [facility] Monocytes/100 WBC (Bld) 8.1 % 0-10 [facility] Neutrophils (Bld) [#/Vol] 7.0 10*3/uL 2.0-7.7 [facility] Neutrophils/100 WBC (Bld) 62.4 % 47-70 [facility] Potassium [Moles/Vol] 3.9 mmol/L 3.5-5.1 [facility] Sodium [Moles/Vol] 140 mmol/L 136-145 [facility] WBC (Bld) [#/Vol] 11.2 10*3/uL 4.4-11.0 [facility] Determination of erythrocyte mean corpuscular volume (MCV)Ordered By: Presley Ibarra on 06-03-2023 MCV (RBC) [Entitic vol] 86.4 fL 81-99 [facility] Erythrocyte distribution wid th ratioOrdered By: Presley Ibarra on 06-03-2023 Erythrocyte distribution width (RBC) [Ratio] 14.1 % 11.6-14.6 [facility] Erythrocyte distribution wid th standard deviationOrdered By: Presley Ibarra on 06-03-2023 Erythrocyte distribution width (RBC) [Entitic vol] 44.7 fL 35.1-43.9 [facility] Hematocrit Auto (Bld) [Volum e fraction]Ordered By: Presley Ibarra on 06-03-2023 Hematocrit (Bld) [Volume fraction] 39.9 % 37-47 [facility] Immature granulocytes/100 WB C Auto (Bld)Ordered By: Presley Ibarra on 06-03-2023 Immature granulocytes/100 WBC (Bld) 0.300 % 0.0-0.9 [facility] Comment on above: IG% - Immature Granu locytes (promyelocytes, myelocytes and metamyelocytes) > 1% indicates that a LEFT SHIFT is Present. Laboratory - Chemistry and C hemistry - challengeOrdered By: Presley Ibarra on 06-03-2023 CO2 [Moles/Vol] 25.0 mmol/L 21.0-32.0 [facility] Urea nitrogen/Creatinine [Mass ratio] 17.4 mg/mg 10-20 [facility] Laboratory - Hematology and Cell countsOrdered By: Presley Ibarra on 06-03-2023 MCH (RBC) [Entitic mass] 27.9 pg 27.0-32.0 [facility] MCHC (RBC) [Mass/Vol] 32.3 g/dL 32-36 [facility] Nucleated RBC/100 WBC (Bld) [Ratio] 0 % 0-5 [facility] Platelet mean volume (Bld) [Entitic vol] 9.0 fL 6.2-12.0 [facility] Platelets (Bld) [#/Vol] 382 10*3/uL 150-450 [facility] No Panel InformationOrdered By: Presley Ibarra on 06-03-2023 D-Dimer Quantitative (PE/DVT) < 0.27 FEU/ug/m 0.27-0.49 [facility] Comment on above: NORMAL D-Dimer level (<0.50) indicates no DVT or PE. Estimated Creatinine Clearance Calc 162.22 ml/min [facility] Estimated GFR (MDRD) Amer 121 mL/min >60 [facility] Comment on above: GFR Calc Estimated GFR (MDRD) Non-Af Amer 100 mL/min >60 [facility] Comment on above: Non- GFR Calc Troponin I High Sensitivity 4 pg/mL 3.0-54.0 [facility] Comment on above: Please Note: New Renetta t Units and Gender Specific Reference Ranges. For more information see Policy Stat Procedure [place] High Sensitivity Troponin (TNIH) and attachments. RBC Auto (Bld) [#/Vol]Ordere d By: Presley Ibarra on 06-03-2023 RBC (Bld) [#/Vol] 4.62 10*6/uL 4.2-5.4 [facility] Serum or plasma calcium cherelle urement (mass/volume)Ordered By: Presley Ibarra on 06-03-2023 Calcium [Mass/Vol] 9.0 mg/dL 8.5-10.1 [facility] Serum or plasma creatinine m easurement (mass/volume)Ordered By: Presley Ibarra on 06-03-2023 Creatinine [Mass/Vol] 0.74 mg/dL 0.55-1.02 [facility] Comment on above: The validity of the calculated GFR & GFRAA in patients over 70 years has not been determined. Clinical correlation is essential. Serum or plasma thyroid stim ulating hormone (TSH) measurement (units/volume)Ordered By: Presley Ibarra on 06-03-2023 TSH Qn 4.01 uIU/mL 0.358-3.74 [facility] Serum or plasma urea nitroge n measurement (mass/volume)Ordered By: Presley Ibarra on 06-03-2023 Urea nitrogen [Mass/Vol] 13 mg/dL 7-18 [facility] Thin prep Papanicolaou smear with manual screeningOrdered By: Presley Ibarra on 06-03-2023 Thin prep Papanicolaou smear with manual screening 7 5-15 [facility] Absolute lymphocyte countOrd ered By: Sarah Purdy on 05-08-2023 Lymphocytes Auto (Unsp spec) [#/Vol] 2.64 10*3/uL 0.83-4.51 [facility] Automated lymphocyte count a s percentage of total leukocytesOrdered By: Sarah Purdy on 05-08-2023 Lymphocytes/100 WBC Auto (Unsp spec) 23.6 % 19-41 [facility] Basophil percentageOrdered B y: Sarah Purdy on 05-08-2023 Basophils/100 WBC (Bld) 0.5 % 0-1 [facility] Bilirubin [Mass/Vol] 0.40 mg/dL 0.20-1.00 [facility] Comment on above: For patients on eltr ombopag therapy, use of Dimension [place] TBIL is not recommended. Chloride [Moles/Vol] 107 mmol/L 98-107 [facility] Eosinophils/100 WBC (Bld) 1.7 % 0-5 [facility] Glucose [Mass/Vol] 105 mg/dL 74-106 [facility] Comment on above: Fasting Glucose resu lt from 100 to 125 mg/dL suggests IMPAIRED HOMEOSTASIS per A.D.A. criteria. Hemoglobin (Bld) [Mass/Vol] 13.6 g/dL 12.0-15.0 [facility] Monocytes/100 WBC (Bld) 6.8 % 0-10 [facility] Neutrophils (Bld) [#/Vol] 7.5 10*3/uL 2.0-7.7 [facility] Neutrophils/100 WBC (Bld) 67.0 % 47-70 [facility] Potassium [Moles/Vol] 3.8 mmol/L 3.5-5.1 [facility] Protein [Mass/Vol] 7.9 g/dL 6.4-8.2 [facility] Sodium [Moles/Vol] 141 mmol/L 136-145 [facility] WBC (Bld) [#/Vol] 11.2 10*3/uL 4.4-11.0 [facility] Determination of erythrocyte mean corpuscular volume (MCV)Ordered By: Sarah Purdy on 05-08-2023 MCV (RBC) [Entitic vol] 87.9 fL 81-99 [facility] Direct bilirubinOrdered By: Sarah Purdy on 05-08-2023 Bilirubin.direct [Mass/Vol] 0.11 mg/dL 0.00-0.30 [facility] Erythrocyte distribution wid th ratioOrdered By: Sarah Purdy on 05-08-2023 Erythrocyte distribution width (RBC) [Ratio] 14.3 % 11.6-14.6 [facility] Erythrocyte distribution wid th standard deviationOrdered By: Sarah Purdy on 05-08-2023 Erythrocyte distribution width (RBC) [Entitic vol] 46.1 fL 35.1-43.9 [facility] Hematocrit Auto (Bld) [Volum e fraction]Ordered By: Sarah Purdy on 05-08-2023 Hematocrit (Bld) [Volume fraction] 44.5 % 37-47 [facility] Immature granulocytes/100 WB C Auto (Bld)Ordered By: Sarah Purdy on 05-08-2023 Immature granulocytes/100 WBC (Bld) 0.400 % 0.0-0.9 [facility] Comment on above: IG% - Immature Granu locytes (promyelocytes, myelocytes and metamyelocytes) > 1% indicates that a LEFT SHIFT is Present. Laboratory - Chemistry and C hemistry - challengeOrdered By: Sarah Purdy on 05-08-2023 ALP [Catalytic activity/Vol] 66 U/L 45-117 [facility] ALT [Catalytic activity/Vol] 39 U/L 13-56 [facility] CO2 [Moles/Vol] 26.0 mmol/L 21.0-32.0 [facility] Globulin (S) [Mass/Vol] 4.4 g/dL 2.2-4.2 [facility] Urea nitrogen/Creatinine [Mass ratio] 18.9 mg/mg 10-20 [facility] Laboratory - Hematology and Cell countsOrdered By: Sarah Purdy on 05-08-2023 MCH (RBC) [Entitic mass] 26.9 pg 27.0-32.0 [facility] MCHC (RBC) [Mass/Vol] 30.6 g/dL 32-36 [facility] Nucleated RBC/100 WBC (Bld) [Ratio] 0 % 0-5 [facility] Platelet mean volume (Bld) [Entitic vol] 9.6 fL 6.2-12.0 [facility] Platelets (Bld) [#/Vol] 408 10*3/uL 150-450 [facility] Laboratory - Microbiology an d Antimicrobial susceptibilityOrdered By: Sarah Purdy on 05-08-2023 SARS-CoV-2 (COVID-19) RNA DAMARIS+probe Ql (Unsp spec) [facility] No Panel InformationOrdered By: Sarah Purdy on 05-08-2023 [place] Level 0.70 mmol/L 0.60-1.20 [facility] Comment on above: Moderate Hemolysis, Result may be falsely increased. Estimated Creatinine Clearance Calc 157.46 ml/min [facility] Estimated GFR (MDRD) Amer 122 mL/min >60 [facility] Comment on above: GFR Calc Estimated GFR (MDRD) Non-Af Amer 100 mL/min >60 [facility] Comment on above: Non- GFR Calc RBC Auto (Bld) [#/Vol]Ordere d By: Sarah Purdy on 05-08-2023 RBC (Bld) [#/Vol] 5.06 10*6/uL 4.2-5.4 [facility] Serum or plasma calcium cherelle urement (mass/volume)Ordered By: Sarah Purdy on 05-08-2023 Calcium [Mass/Vol] 9.1 mg/dL 8.5-10.1 [facility] Serum or plasma choriogonado tropin detectionOrdered By: Sarah Purdy on 05-08-2023 HCG ( test) Ql Negative [facility] Serum or plasma creatinine m easurement (mass/volume)Ordered By: Sarah Purdy on 05-08-2023 Creatinine [Mass/Vol] 0.74 mg/dL 0.55-1.02 [facility] Comment on above: The validity of the calculated GFR & GFRAA in patients over 70 years has not been determined. Clinical correlation is essential. Serum or plasma urea nitroge n measurement (mass/volume)Ordered By: Sarah Purdy on 05-08-2023 Urea nitrogen [Mass/Vol] 14 mg/dL 7-18 [facility] Thin prep Papanicolaou smear with manual screeningOrdered By: Sarah Purdy on 05-08-2023 Thin prep Papanicolaou smear with manual screening 3.5 g/dL 3.2-5.0 [facility] Thin prep Papanicolaou smear with manual screening 16 U/L 15-37 [facility] Thin prep Papanicolaou smear with manual screening 8 5-15 [facility] Absolute lymphocyte countOrd ered By: Lianet Worrell on 04-07-2023 Lymphocytes Auto (Unsp spec) [#/Vol] 2.28 10*3/uL 0.83-4.51 [facility] Automated lymphocyte count a s percentage of total leukocytesOrdered By: Lianet Worrell on 04-07-2023 Lymphocytes/100 WBC Auto (Unsp spec) 24.6 % 19-41 [facility] Basophil percentageOrdered B y: Lianet Worrell on 04-07-2023 Basophils/100 WBC (Bld) 0.5 % 0-1 [facility] Chloride [Moles/Vol] 113 mmol/L 98-107 [facility] Eosinophils/100 WBC (Bld) 1.0 % 0-5 [facility] Glucose [Mass/Vol] 122 mg/dL 74-106 [facility] Comment on above: Fasting Glucose resu lt from 100 to 125 mg/dL suggests IMPAIRED HOMEOSTASIS per A.D.A. criteria. Hemoglobin (Bld) [Mass/Vol] 12.7 g/dL 12.0-15.0 [facility] Monocytes/100 WBC (Bld) 7.3 % 0-10 [facility] Neutrophils (Bld) [#/Vol] 6.1 10*3/uL 2.0-7.7 [facility] Neutrophils/100 WBC (Bld) 66.2 % 47-70 [facility] Potassium [Moles/Vol] 3.8 mmol/L 3.5-5.1 [facility] Sodium [Moles/Vol] 140 mmol/L 136-145 [facility] WBC (Bld) [#/Vol] 9.3 10*3/uL 4.4-11.0 [facility] Determination of erythrocyte mean corpuscular volume (MCV)Ordered By: Lianet Worrell on 04-07-2023 MCV (RBC) [Entitic vol] 86.5 fL 81-99 [facility] Erythrocyte distribution wid th ratioOrdered By: Lianet Worrell on 04-07-2023 Erythrocyte distribution width (RBC) [Ratio] 13.9 % 11.6-14.6 [facility] Erythrocyte distribution wid th standard deviationOrdered By: Lianetflor Worrell on 04-07-2023 Erythrocyte distribution width (RBC) [Entitic vol] 43.9 fL 35.1-43.9 [facility] Hematocrit Auto (Bld) [Volum e fraction]Ordered By: Lianet Worrell on 04-07-2023 Hematocrit (Bld) [Volume fraction] 40.4 % 37-47 [facility] Immature granulocytes/100 WB C Auto (Bld)Ordered By: Lianet Worrell on 04-07-2023 Immature granulocytes/100 WBC (Bld) 0.400 % 0.0-0.9 [facility] Comment on above: IG% - Immature Granu locytes (promyelocytes, myelocytes and metamyelocytes) > 1% indicates that a LEFT SHIFT is Present. Laboratory - Chemistry and C hemistry - challengeOrdered By: Lianet Worrell on 04-07-2023 CO2 [Moles/Vol] 23.0 mmol/L 21.0-32.0 [facility] Urea nitrogen/Creatinine [Mass ratio] 15.8 mg/mg 10-20 [facility] Laboratory - Drug toxicology Ordered By: Lianet Worrell on 04-07-2023 Amphetamines Ql (U) Negative <1000 ng/mL [facility] Benzodiazepines Ql (U) Negative < 200 ng/mL [facility] Cannabinoids Screen Ql (U) Negative < 50 ng/mL [facility] Cocaine Ql (U) Negative < 300 ng/mL [facility] Opiates Ql (U) Negative < 300 ng/mL [facility] Laboratory - Hematology and Cell countsOrdered By: Lianet Worrell on 04-07-2023 MCH (RBC) [Entitic mass] 27.2 pg 27.0-32.0 [facility] MCHC (RBC) [Mass/Vol] 31.4 g/dL 32-36 [facility] Nucleated RBC/100 WBC (Bld) [Ratio] 0 % 0-5 [facility] Platelet mean volume (Bld) [Entitic vol] 9.0 fL 6.2-12.0 [facility] Platelets (Bld) [#/Vol] 340 10*3/uL 150-450 [facility] Laboratory - Microbiology an d Antimicrobial susceptibilityOrdered By: Lianet Worrell on 04-07-2023 SARS-CoV-2 (COVID-19) RNA DAMARIS+probe Ql (Unsp spec) [facility] SARS-CoV-2 (COVID-19) RNA DAMARIS+probe Ql (Unsp spec) [facility] No Panel InformationOrdered By: Lianet Worrell on 04-07-2023 MDMA (Ecstasy) Screen Negative < 500 ng/mL [facility] Urine Barbiturates Screen Negative < 200 ng/mL [facility] Urine Drug Screen Comment [facility] Comment on above: CONFIRMATORY TESTING FOR ALL POSITIVE URINE DRUG SCREENRESULTS WILL ONLY BE SENT OUT UPON PHYSICIAN ORDER. VISTA Urine Drug Screen methods provide only preliminaryanalytical test results. A more specific alternate chemicalmethod must be used in order to obtain a confirmedanalytical result. Gas chromatography/mass spectrometery(GC/MS) is the preferred confirmatory method. Clinicalconsideration and professional judgement should be appliedto any drug of abuse test result, particularly whenpreliminary positive results are used. URINE TCA TESTING MUST BE ORDERED SEPARATELY. USE TESTMNEMONIC: [facility] Urine Methadone Screen Negative < 300 ng/mL [facility] Estimated Creatinine Clearance Calc 170.69 ml/min [facility] Estimated GFR (MDRD) Amer 130 mL/min >60 [facility] Comment on above: GFR Calc Estimated GFR (MDRD) Non-Af Amer 108 mL/min >60 [facility] Comment on above: Non- GFR Calc Ethyl Alcohol Level < 3.0 mg/dL [facility] Comment on above: The serum:whole bloo d ethanol ratio is approximately 1.14and varies slightly with hematocrit. Medical Alcohol reference interval and critical value innon-tolerant individuals; 50 - 100 Impairment 100 Intoxication 100 - 250 Severe Poisoning 250 - 400 Deep/possible fatal coma RBC Auto (Bld) [#/Vol]Ordere d By: Lianet Worrell on 04-07-2023 RBC (Bld) [#/Vol] 4.67 10*6/uL 4.2-5.4 [facility] Serum or plasma calcium cherelle urement (mass/volume)Ordered By: Lianet Worrell on 04-07-2023 Calcium [Mass/Vol] 9.4 mg/dL 8.5-10.1 [facility] Serum or plasma choriogonado tropin detectionOrdered By: Lianet Worrell on 04-07-2023 HCG ( test) Ql Negative [facility] Serum or plasma creatinine m easurement (mass/volume)Ordered By: Lianet Worrell on 04-07-2023 Creatinine [Mass/Vol] 0.70 mg/dL 0.55-1.02 [facility] Comment on above: The validity of the calculated GFR & GFRAA in patients over 70 years has not been determined. Clinical correlation is essential. Serum or plasma urea nitroge n measurement (mass/volume)Ordered By: Lianet Worrell on 04-07-2023 Urea nitrogen [Mass/Vol] 11 mg/dL 7-18 [facility] Thin prep Papanicolaou smear with manual screeningOrdered By: Lianet Worrell on 04-07-2023 Thin prep Papanicolaou smear with manual screening 4 5-15 [facility] Urine phencyclidine (PCP) de tectionOrdered By: Lianet Worrell on 04-07-2023 Phencyclidine Ql (U) Negative < 25 ng/mL [facility] Absolute lymphocyte countOrd ered By: Andreas Oliva on 01-30-2023 Lymphocytes Auto (Unsp spec) [#/Vol] 2.23 10*3/uL 0.83-4.51 [facility] Basophil percentageOrdered B y: Andreas Oliva on 01-30-2023 Basophils/100 WBC (Bld) 0.8 % 0-1 [facility] Bilirubin [Mass/Vol] 0.40 mg/dL 0.20-1.00 [facility] Comment on above: For patients on eltr ombopag therapy, use of Dimension [place] TBIL is not recommended. Chloride [Moles/Vol] 108 mmol/L 98-107 [facility] Cholesterol [Mass/Vol] 170 mg/dL <200 [facility] Comment on above: <200 mg/dL Desirable 200-240 mg/dL Borderline >240 mg/dL High Risk Eosinophils/100 WBC (Bld) 1.0 % 0-5 [facility] Glucose [Mass/Vol] 95 mg/dL 74-106 [facility] Neutrophils (Bld) [#/Vol] 7.5 10*3/uL 2.0-7.7 [facility] Neutrophils/100 WBC (Bld) 70.2 % 47-70 [facility] Potassium [Moles/Vol] 4.1 mmol/L 3.5-5.1 [facility] Protein [Mass/Vol] 7.5 g/dL 6.4-8.2 [facility] Sodium [Moles/Vol] 139 mmol/L 136-145 [facility] Triglyceride [Mass/Vol] 120 mg/dL <199 [facility] Comment on above: The drugs N-Acetylcy steine and Metamizole may falsely depress this assay.Serum Triglycerides Reference Interval Normal <150 mg/dL Borderline high 150 - 199 mg/dL High 200 - 499 mg/dL Very High > or = 500 mg/dL WBC (Bld) [#/Vol] 10.6 10*3/uL 4.4-11.0 [facility] Blood erythrocytes count (nu mber/volume)Ordered By: Andreas Oliva on 01-30-2023 RBC (Bld) [#/Vol] 4.57 10*6/uL 4.2-5.4 [facility] Blood hemoglobin measurement (mass/volume)Ordered By: Andreas Oliva on 01-30-2023 Hemoglobin (Bld) [Mass/Vol] 12.9 g/dL 12.0-15.0 [facility] Blood lymphocytes/100 leukoc ytesOrdered By: Andreas Oliva on 01-30-2023 Lymphocytes/100 WBC (Bld) 21.0 % 19-41 [facility] Blood monocytes/100 leukocyt esOrdered By: Andreas Oliva on 01-30-2023 Monocytes/100 WBC (Bld) 6.6 % 0-10 [facility] Blood platelet mean volumeOr dered By: Andreas Oliva on 01-30-2023 Platelet mean volume (Bld) [Entitic vol] 9.1 fL 6.2-12.0 [facility] Determination of erythrocyte mean corpuscular volume (MCV)Ordered By: Andreas Oliva on 01-30-2023 MCV (RBC) [Entitic vol] 91.9 fL 81-99 [facility] Erythrocyte sedimentation ra teOrdered By: Andreas Oliva on 01-30-2023 ESR (Bld) [Velocity] 24 mm/h 0-30 [facility] Hematocrit Auto (Bld) [Volum e fraction]Ordered By: Andreas Oliva on 01-30-2023 Hematocrit (Bld) [Volume fraction] 42.0 % 37-47 [facility] Laboratory - Chemistry and C hemistry - challengeOrdered By: Andreas Oliva on 01-30-2023 ALP [Catalytic activity/Vol] 59 U/L 45-117 [facility] ALT [Catalytic activity/Vol] 29 U/L 13-56 [facility] CO2 [Moles/Vol] 26.0 mmol/L 21.0-32.0 [facility] Globulin (S) [Mass/Vol] 4.2 g/dL 2.2-4.2 [facility] Urea nitrogen/Creatinine [Mass ratio] 23.6 mg/mg 10-20 [facility] Laboratory - Hematology and Cell countsOrdered By: Andreas Oliva on 01-30-2023 Erythrocyte distribution width (RBC) [Entitic vol] 45.3 fL 35.1-43.9 [facility] Erythrocyte distribution width (RBC) [Ratio] 13.3 % 11.6-14.6 [facility] Immature granulocytes/100 WBC (Bld) 0.400 % 0.0-0.9 [facility] Comment on above: IG% - Immature Granu locytes (promyelocytes, myelocytes and metamyelocytes) > 1% indicates that a LEFT SHIFT is Present. MCH (RBC) [Entitic mass] 28.2 pg 27.0-32.0 [facility] Nucleated RBC/100 WBC (Bld) [Ratio] 0 % 0-5 [facility] MCHC Auto (RBC) [Mass/Vol]Or dered By: Andreas Oliva on 01-30-2023 MCHC (RBC) [Mass/Vol] 30.7 g/dL 32-36 [facility] No Panel InformationOrdered By: Andreas Oliva on 01-30-2023 Estimated GFR (MDRD) Amer 135 mL/min >60 [facility] Comment on above: GFR Calc Estimated GFR (MDRD) Non-Af Amer 112 mL/min >60 [facility] Comment on above: Non- GFR Calc Thyroid Stimulating Hormone (TSH) 2.19 uIU/mL 0.358-3.74 [facility] Platelets bldOrdered By: Mello Oliva on 01-30-2023 Platelets (Bld) [#/Vol] 403 10*3/uL 150-450 [facility] Serum or plasma C reactive p rotein measurement (mass/volume)Ordered By: Andreas Oliva on 01-30-2023 CRP [Mass/Vol] 11.40 mg/L 0.0-3.0 [facility] Comment on above: C-Reactive Protein ( CRP) provides useful information for thediagnosis, therapy and monitoring of inflammatory processesand associated diseases. For the evaluation of Relative Riskfor Cardiovascular Disease, a High Sensitivity CRP (HSCRP)should be ordered. Serum or plasma albumin cherelle urement (mass/volume)Ordered By: Andreas Oliva on 01-30-2023 Albumin [Mass/Vol] 3.3 g/dL 3.2-5.0 [facility] Serum or plasma albumin/glob ulin mass ratioOrdered By: Andreas Oliva on 01-30-2023 Albumin/Globulin [Mass ratio] 0.8 {ratio} 0.9-2.4 [facility] Serum or plasma calcium cherelle urement (mass/volume)Ordered By: Andreas Oliva on 01-30-2023 Calcium [Mass/Vol] 8.8 mg/dL 8.5-10.1 [facility] Serum or plasma cholesterol in HDL measurement (mass/volume)Ordered By: Andreas Oliva on 01-30-2023 Cholesterol in HDL [Mass/Vol] 38 mg/dL >40 [facility] Comment on above: The drugs N-Acetylcy steine and Metamizole may falsely depress this assay. Reference Range HDL <40 mg/dL Low HDL Cholesterol HDL >or= 60 mg/dL High HDL Cholesterol Serum or plasma cholesterol in VLDL measurement (mass/volume)Ordered By: Andreas Oliva on 01-30-2023 Cholesterol in VLDL [Mass/Vol] 24 mg/dL 5-40 [facility] Serum or plasma creatinine m easurement (mass/volume)Ordered By: Andreas Oliva on 01-30-2023 Creatinine [Mass/Vol] 0.68 mg/dL 0.55-1.02 [facility] Comment on above: The validity of the calculated GFR & GFRAA in patients over 70 years has not been determined. Clinical correlation is essential. Serum or plasma low density lipoprotein (LDL) cholesterol measurement (mass/volume)Ordered By: Andreas Oliva on 01-30-2023 Cholesterol in LDL [Mass/Vol] 108 mg/dL 0-130 [facility] Serum or plasma urea nitroge n measurement (mass/volume)Ordered By: Andreas Oliva on 01-30-2023 Urea nitrogen [Mass/Vol] 16 mg/dL 7-18 [facility] Thin prep Papanicolaou smear with manual screeningOrdered By: Andreas Oliva on 01-30-2023 Thin prep Papanicolaou smear with manual screening 10 U/L 15-37 [facility] Thin prep Papanicolaou smear with manual screening 5 5-15 [facility] Whole blood hemoglobin A1c/t otal hemoglobin ratio (mass fraction)Ordered By: Andreas Oliva on 01-30-2023 HbA1c (Bld) [Mass fraction] 5.1 % 3.8-5.6 [facility] Comment on above: Normal < 5.7 % Predi abetic 5.7 - 6.4 % Diabetic >or= 6.5 % Please note range changes. Absolute lymphocyte countOrd ered By: Laura Li on 12-20-2022 Lymphocytes Auto (Unsp spec) [#/Vol] 2.18 10*3/uL 0.83-4.51 [facility] Basophil percentageOrdered B y: Laura Li on 12-20-2022 Basophils/100 WBC (Bld) 0.6 % 0-1 [facility] Chloride [Moles/Vol] 110 mmol/L 98-107 [facility] Eosinophils/100 WBC (Bld) 2.0 % 0-5 [facility] Glucose [Mass/Vol] 109 mg/dL 74-106 [facility] Comment on above: Fasting Glucose resu lt from 100 to 125 mg/dL suggests IMPAIRED HOMEOSTASIS per A.D.A. criteria. Neutrophils (Bld) [#/Vol] 3.6 10*3/uL 2.0-7.7 [facility] Neutrophils/100 WBC (Bld) 55.7 % 47-70 [facility] Potassium [Moles/Vol] 3.6 mmol/L 3.5-5.1 [facility] Sodium [Moles/Vol] 140 mmol/L 136-145 [facility] WBC (Bld) [#/Vol] 6.4 10*3/uL 4.4-11.0 [facility] Blood erythrocytes count (nu mber/volume)Ordered By: Laura Li on 12-20-2022 RBC (Bld) [#/Vol] 3.98 10*6/uL 4.2-5.4 [facility] Blood hemoglobin measurement (mass/volume)Ordered By: Laura Li on 12-20-2022 Hemoglobin (Bld) [Mass/Vol] 11.5 g/dL 12.0-15.0 [facility] Blood lymphocytes/100 leukoc ytesOrdered By: Laura Li on 12-20-2022 Lymphocytes/100 WBC (Bld) 34.0 % 19-41 [facility] Blood monocytes/100 leukocyt esOrdered By: Laura Li on 12-20-2022 Monocytes/100 WBC (Bld) 7.5 % 0-10 [facility] Blood platelet mean volumeOr dered By: Laura Li on 12-20-2022 Platelet mean volume (Bld) [Entitic vol] 9.1 fL 6.2-12.0 [facility] Determination of erythrocyte mean corpuscular volume (MCV)Ordered By: Laura Li on 12-20-2022 MCV (RBC) [Entitic vol] 91.2 fL 81-99 [facility] Hematocrit Auto (Bld) [Volum e fraction]Ordered By: Laura Li on 12-20-2022 Hematocrit (Bld) [Volume fraction] 36.3 % 37-47 [facility] Laboratory - Chemistry and C hemistry - challengeOrdered By: Laura Li on 12-20-2022 CO2 [Moles/Vol] 24.0 mmol/L 21.0-32.0 [facility] Magnesium [Mass/Vol] 2.2 mg/dL 1.6-2.6 [facility] Urea nitrogen/Creatinine [Mass ratio] 20.0 mg/mg 10-20 [facility] Laboratory - Hematology and Cell countsOrdered By: Laura Li on 12-20-2022 Erythrocyte distribution width (RBC) [Entitic vol] 44.9 fL 35.1-43.9 [facility] Erythrocyte distribution width (RBC) [Ratio] 13.3 % 11.6-14.6 [facility] Immature granulocytes/100 WBC (Bld) 0.200 % 0.0-0.9 [facility] Comment on above: IG% - Immature Granu locytes (promyelocytes, myelocytes and metamyelocytes) > 1% indicates that a LEFT SHIFT is Present. MCH (RBC) [Entitic mass] 28.9 pg 27.0-32.0 [facility] Nucleated RBC/100 WBC (Bld) [Ratio] 0 % 0-5 [facility] MCHC Auto (RBC) [Mass/Vol]Or dered By: Laura Li on 12-20-2022 MCHC (RBC) [Mass/Vol] 31.7 g/dL 32-36 [facility] No Panel InformationOrdered By: Laura Li on 12-20-2022 Estimated Creatinine Clearance Calc 133.01 ml/min [facility] Estimated GFR (MDRD) Amer 155 mL/min >60 [facility] Comment on above: GFR Calc Estimated GFR (MDRD) Non-Af Amer 128 mL/min >60 [facility] Comment on above: Non- GFR Calc Platelets bldOrdered By: Lc Li on 12-20-2022 Platelets (Bld) [#/Vol] 322 10*3/uL 150-450 [facility] Serum or plasma calcium cherelle urement (mass/volume)Ordered By: Laura Li on 12-20-2022 Calcium [Mass/Vol] 8.5 mg/dL 8.5-10.1 [facility] Serum or plasma cortisol burton surement (mass/volume)Ordered By: Laura Li on 12-20-2022 Cortisol [Mass/Vol] 13.40 ug/dL 3.44-22.45 [facility] Comment on above: Adult (AM) 5.27 - 22 .45 ug/dL Adult (PM) 3.44 - 16.76 ug/dLPlease note revised CORTISOL reference range effective 2019. Serum or plasma creatinine m easurement (mass/volume)Ordered By: Laura Li on 12-20-2022 Creatinine [Mass/Vol] 0.60 mg/dL 0.55-1.02 [facility] Comment on above: The validity of the calculated GFR & GFRAA in patients over 70 years has not been determined. Clinical correlation is essential. Serum or plasma urea nitroge n measurement (mass/volume)Ordered By: Laura Li on 12-20-2022 Urea nitrogen [Mass/Vol] 12 mg/dL 7-18 [facility] Thin prep Papanicolaou smear with manual screeningOrdered By: Laura Li on 12-20-2022 Thin prep Papanicolaou smear with manual screening 6 5-15 [facility] Absolute lymphocyte countOrd ered By: Presley Ibarra on 12-18-2022 Lymphocytes Auto (Unsp spec) [#/Vol] 2.03 10*3/uL 0.83-4.51 [facility] Basophil percentageOrdered B y: Presley Ibarra on 12-18-2022 Basophils/100 WBC (Bld) 0.5 % 0-1 [facility] Chloride [Moles/Vol] 108 mmol/L 98-107 [facility] Eosinophils/100 WBC (Bld) 0.7 % 0-5 [facility] Glucose [Mass/Vol] 107 mg/dL 74-106 [facility] Comment on above: Fasting Glucose resu lt from 100 to 125 mg/dL suggests IMPAIRED HOMEOSTASIS per A.D.A. criteria. Neutrophils (Bld) [#/Vol] 8.3 10*3/uL 2.0-7.7 [facility] Neutrophils/100 WBC (Bld) 73.9 % 47-70 [facility] Potassium [Moles/Vol] 4.1 mmol/L 3.5-5.1 [facility] Sodium [Moles/Vol] 140 mmol/L 136-145 [facility] WBC (Bld) [#/Vol] 11.2 10*3/uL 4.4-11.0 [facility] Blood erythrocytes count (nu mber/volume)Ordered By: Presley Ibarra on 12-18-2022 RBC (Bld) [#/Vol] 4.50 10*6/uL 4.2-5.4 [facility] Blood hemoglobin measurement (mass/volume)Ordered By: Presley Ibarra on 12-18-2022 Hemoglobin (Bld) [Mass/Vol] 12.9 g/dL 12.0-15.0 [facility] Blood lymphocytes/100 leukoc ytesOrdered By: Presley Ibarra on 12-18-2022 Lymphocytes/100 WBC (Bld) 18.1 % 19-41 [facility] Blood monocytes/100 leukocyt esOrdered By: Presley Ibarra on 12-18-2022 Monocytes/100 WBC (Bld) 6.4 % 0-10 [facility] Blood platelet mean volumeOr dered By: Presley Ibarra on 12-18-2022 Platelet mean volume (Bld) [Entitic vol] 9.0 fL 6.2-12.0 [facility] Determination of erythrocyte mean corpuscular volume (MCV)Ordered By: Presley Ibarra on 12-18-2022 MCV (RBC) [Entitic vol] 91.1 fL 81-99 [facility] Hematocrit Auto (Bld) [Volum e fraction]Ordered By: Presley Ibarra on 12-18-2022 Hematocrit (Bld) [Volume fraction] 41.0 % 37-47 [facility] Laboratory - Chemistry and C hemistry - challengeOrdered By: Presley Ibarra on 12-18-2022 CO2 [Moles/Vol] 29.0 mmol/L 21.0-32.0 [facility] Urea nitrogen/Creatinine [Mass ratio] 17.9 mg/mg 10-20 [facility] - Hematology and Cell countsOrdered By: Presley Ibarra on 12-18-2022 Erythrocyte distribution width (RBC) [Entitic vol] 46.5 fL 35.1-43.9 [facility] Erythrocyte distribution width (RBC) [Ratio] 13.7 % 11.6-14.6 [facility] Immature granulocytes/100 WBC (Bld) 0.400 % 0.0-0.9 [facility] Comment on above: IG% - Immature Granu locytes (promyelocytes, myelocytes and metamyelocytes) > 1% indicates that a LEFT SHIFT is Present. MCH (RBC) [Entitic mass] 28.7 pg 27.0-32.0 [facility] Nucleated RBC/100 WBC (Bld) [Ratio] 0 % 0-5 [facility] MCHC Auto (RBC) [Mass/Vol]Or dered By: Presley Ibarra on 12-18-2022 MCHC (RBC) [Mass/Vol] 31.5 g/dL 32-36 [facility] No Panel InformationOrdered By: Presley Ibarra on 12-18-2022 [place] Level 0.60 mmol/L 0.60-1.20 [facility] D-Dimer Quantitative (PE/DVT) < 0.27 FEU/ug/m 0.27-0.49 [facility] Comment on above: NORMAL D-Dimer level (<0.50) indicates no DVT or PE. Estimated GFR (MDRD) Amer 137 mL/min >60 [facility] Comment on above: GFR Calc Estimated GFR (MDRD) Non-Af Amer 113 mL/min >60 [facility] Comment on above: Non- GFR Calc Troponin I High Sensitivity 3 pg/mL 3.0-54.0 [facility] Comment on above: Please Note: New Renetta t Units and Gender Specific Reference Ranges. For more information see Policy Stat Procedure [place] High Sensitivity Troponin (TNIH) and attachments. Platelets bldOrdered By: Jada Ibarra on 12-18-2022 Platelets (Bld) [#/Vol] 404 10*3/uL 150-450 [facility] Serum or plasma calcium cherelle urement (mass/volume)Ordered By: Presley Ibarra on 12-18-2022 Calcium [Mass/Vol] 9.2 mg/dL 8.5-10.1 [facility] Serum or plasma creatinine m easurement (mass/volume)Ordered By: Presley Ibarra on 12-18-2022 Creatinine [Mass/Vol] 0.67 mg/dL 0.55-1.02 [facility] Comment on above: The validity of the calculated GFR & GFRAA in patients over 70 years has not been determined. Clinical correlation is essential. Serum or plasma urea nitroge n measurement (mass/volume)Ordered By: Presley Ibarra on 12-18-2022 Urea nitrogen [Mass/Vol] 12 mg/dL 7-18 [facility] Thin prep Papanicolaou smear with manual screeningOrdered By: Presley Ibarra on 12-18-2022 Thin prep Papanicolaou smear with manual screening 3 5-15 [facility] Basophil percentageOrdered B y: DANIEL BETANCUR on 12-12-2022 Bilirubin [Mass/Vol] 0.80 mg/dL 0.20-1.00 [facility] Comment on above: For patients on eltr ombopag therapy, use of Dimension [place] TBIL is not recommended. Chloride [Moles/Vol] 105 mmol/L 98-107 [facility] Glucose [Mass/Vol] 96 mg/dL 74-106 [facility] Potassium [Moles/Vol] 4.4 mmol/L 3.5-5.1 [facility] Protein [Mass/Vol] 7.5 g/dL 6.4-8.2 [facility] Sodium [Moles/Vol] 140 mmol/L 136-145 [facility] Laboratory - Chemistry and C hemistry - challengeOrdered By: DANIEL BETANCUR on 12-12-2022 ALP [Catalytic activity/Vol] 74 U/L 45-117 [facility] ALT [Catalytic activity/Vol] 54 U/L 13-56 [facility] CO2 [Moles/Vol] 28.0 mmol/L 21.0-32.0 [facility] Globulin (S) [Mass/Vol] 3.8 g/dL 2.2-4.2 [facility] Lipase [Catalytic activity/Vol] 32 U/L 13-75 [facility] Comment on above: Please note:LIPASE r evised reference range effective 22. New Lipase methodology. Expected to produce lower values than the previous assay method. NEW Reference Range: 13 - 75 U/L Urea nitrogen/Creatinine [Mass ratio] 12.5 mg/mg 10- [facility] No Panel InformationOrdered By: [facility] on 12-12-2022 Estimated GFR (MDRD) Amer 111 mL/min >60 [facility] Comment on above: GFR Calc Estimated GFR (MDRD) Non-Af Amer 92 mL/min >60 [facility] Comment on above: Non- GFR Calc Insulin Level 80.9 mU/L 2.6-37.6 [facility] [place] Level 0.60 mmol/L 0.60-1.20 [facility] Serum or plasma albumin cherelle urement (mass/volume)Ordered By: [facility] on 12-12-2022 Albumin [Mass/Vol] 3.7 g/dL 3.2-5.0 [facility] Serum or plasma albumin/glob ulin mass ratioOrdered By: [facility] on 12-12-2022 Albumin/Globulin [Mass ratio] 1.0 {ratio} 0.9-2.4 [facility] Serum or plasma calcium cherelle urement (mass/volume)Ordered By: [facility] on 12-12-2022 Calcium [Mass/Vol] 9.5 mg/dL 8.5-10.1 [facility] Serum or plasma creatinine m easurement (mass/volume)Ordered By: [facility] on 12-12-2022 Creatinine [Mass/Vol] 0.80 mg/dL 0.55-1.02 [facility] Comment on above: The validity of the calculated GFR & GFRAA in patients over 70 years has not been determined. Clinical correlation is essential. Serum or plasma urea nitroge n measurement (mass/volume)Ordered By: [facility] on 12-12-2022 Urea nitrogen [Mass/Vol] 10 mg/dL 7-18 [facility] Thin prep Papanicolaou smear with manual screeningOrdered By: DANIEL BETANCUR on 12-12-2022 Thin prep Papanicolaou smear with manual screening 21 U/L 15-37 [facility] Thin prep Papanicolaou smear with manual screening 7 5-15 [facility] Absolute lymphocyte countOrd ered By: Rodolfo Das on 12-09-2022 Lymphocytes Auto (Unsp spec) [#/Vol] 2.14 10*3/uL 0.83-4.51 [facility] Basophil percentageOrdered B y: Rodolfo Das on 12-09-2022 Basophil percentage 5-10 SEEN /hpf 0-5 [facility] Basophils/100 WBC (Bld) 0.5 % 0-1 [facility] Bilirubin [Mass/Vol] 0.70 mg/dL 0.20-1.00 [facility] Comment on above: For patients on eltr ombopag therapy, use of Dimension [place] TBIL is not recommended. Chloride [Moles/Vol] 106 mmol/L 98-107 [facility] Eosinophils/100 WBC (Bld) 0.7 % 0-5 [facility] Glucose [Mass/Vol] 91 mg/dL 74-106 [facility] Neutrophils (Bld) [#/Vol] 7.5 10*3/uL 2.0-7.7 [facility] Neutrophils/100 WBC (Bld) 71.2 % 47-70 [facility] Potassium [Moles/Vol] 4.3 mmol/L 3.5-5.1 [facility] Protein [Mass/Vol] 7.6 g/dL 6.4-8.2 [facility] Sodium [Moles/Vol] 138 mmol/L 136-145 [facility] WBC (Bld) [#/Vol] 10.5 10*3/uL 4.4-11.0 [facility] Beta hCG serum qualOrdered B y: Rodolfo Das on 12-09-2022 Beta HCG ( test) Ql Negative [facility] Bilirubin Test strip Ql (U)O rdered By: Rodolfo Das on 12-09-2022 Bilirubin Ql (U) Negative Negative [facility] Blood erythrocytes count (nu mber/volume)Ordered By: Rodolfo Das on 12-09-2022 RBC (Bld) [#/Vol] 4.66 10*6/uL 4.2-5.4 [facility] Blood hemoglobin measurement (mass/volume)Ordered By: Rodolfo Das on 12-09-2022 Hemoglobin (Bld) [Mass/Vol] 13.4 g/dL 12.0-15.0 [facility] Blood lymphocytes/100 leukoc ytesOrdered By: Rodolfo Das on 12-09-2022 Lymphocytes/100 WBC (Bld) 20.4 % 19-41 [facility] Blood monocytes/100 leukocyt esOrdered By: Rodolfo Das on 12-09-2022 Monocytes/100 WBC (Bld) 6.9 % 0-10 [facility] Blood platelet mean volumeOr dered By: Rodlofo Das on 12-09-2022 Platelet mean volume (Bld) [Entitic vol] 8.9 fL 6.2-12.0 [facility] Culture, urineOrdered By: Vj Das on 12-09-2022 Bacteria identified Cx Nom (U) Positive [facility] Bacteria identified Cx Nom (U) Positive [facility] Determination of erythrocyte mean corpuscular volume (MCV)Ordered By: Rodolfo Das on 12-09-2022 MCV (RBC) [Entitic vol] 89.9 fL 81-99 [facility] Hematocrit Auto (Bld) [Volum e fraction]Ordered By: Rodolfo Das on 12-09-2022 Hematocrit (Bld) [Volume fraction] 41.9 % 37-47 [facility] Ketones Test strip Ql (U)Ord ered By: Rodolfo Das on 12-09-2022 Ketones Ql (U) 5 mg/dl Negative [facility] Laboratory - Chemistry and C hemistry - challengeOrdered By: Rodolfo Das on 12-09-2022 ALP [Catalytic activity/Vol] 69 U/L 45-117 [facility] ALT [Catalytic activity/Vol] 52 U/L 13-56 [facility] CO2 [Moles/Vol] 28.0 mmol/L 21.0-32.0 [facility] Globulin (S) [Mass/Vol] 4.0 g/dL 2.2-4.2 [facility] Lipase [Catalytic activity/Vol] 50 U/L 13-75 [facility] Comment on above: Please note:LIPASE r evised reference range effective 22. New Lipase methodology. Expected to produce lower values than the previous assay method. NEW Reference Range: 13 - 75 U/L Urea nitrogen/Creatinine [Mass ratio] 18.9 mg/mg 10-20 [facility] Laboratory - Hematology and Cell countsOrdered By: Rodolfo Das on 12-09-2022 Erythrocyte distribution width (RBC) [Entitic vol] 45.8 fL 35.1-43.9 [facility] Erythrocyte distribution width (RBC) [Ratio] 13.9 % 11.6-14.6 [facility] Immature granulocytes/100 WBC (Bld) 0.300 % 0.0-0.9 [facility] Comment on above: IG% - Immature Granu locytes (promyelocytes, myelocytes and metamyelocytes) > 1% indicates that a LEFT SHIFT is Present. MCH (RBC) [Entitic mass] 28.8 pg 27.0-32.0 [facility] Nucleated RBC/100 WBC (Bld) [Ratio] 0 % 0-5 [facility] MCHC Auto (RBC) [Mass/Vol]Or dered By: Rodolfo Das on 12-09-2022 MCHC (RBC) [Mass/Vol] 32.0 g/dL 32-36 [facility] Mucus LM Ql (Urine sed)Order ed By: Rodolfo Das on 12-09-2022 Mucus Ql (Urine sed) 0 SEEN /hpf [facility] Nitrite Test strip Ql (U)Ord ered By: Rodolfo Das on 12-09-2022 Nitrite Ql (U) Negative Negative [facility] No Panel InformationOrdered By: Rodolfo Das on 12-09-2022 Estimated Creatinine Clearance Calc 120.15 ml/min [facility] Estimated GFR (MDRD) Amer 132 mL/min >60 [facility] Comment on above: GFR Calc Estimated GFR (MDRD) Non-Af Amer 109 mL/min >60 [facility] Comment on above: Non- GFR Calc Platelets bldOrdered By: Vilma Das on 12-09-2022 Platelets (Bld) [#/Vol] 386 10*3/uL 150-450 [facility] Protein Test strip Ql (U)Ord ered By: Rodolfo Das on 12-09-2022 Protein Ql (U) 30 mg/dl Negative [facility] Serum or plasma albumin cherelle urement (mass/volume)Ordered By: Rodolfo Das on 12-09-2022 Albumin [Mass/Vol] 3.6 g/dL 3.2-5.0 [facility] Serum or plasma albumin/glob ulin mass ratioOrdered By: Rodolfo Das on 12-09-2022 Albumin/Globulin [Mass ratio] 0.9 {ratio} 0.9-2.4 [facility] Serum or plasma calcium cherelle urement (mass/volume)Ordered By: Rodolfo Das on 12-09-2022 Calcium [Mass/Vol] 9.2 mg/dL 8.5-10.1 [facility] Serum or plasma creatinine m easurement (mass/volume)Ordered By: Rodolfo Das on 12-09-2022 Creatinine [Mass/Vol] 0.69 mg/dL 0.55-1.02 [facility] Comment on above: The validity of the calculated GFR & GFRAA in patients over 70 years has not been determined. Clinical correlation is essential. Serum or plasma urea nitroge n measurement (mass/volume)Ordered By: Rodolfo Das on 12-09-2022 Urea nitrogen [Mass/Vol] 13 mg/dL 7-18 [facility] Squamous epithelial cells de tection in urine sediment by light microscopyOrdered By: Rodolfo Das on 12-09-2022 Epithelial cells.squamous LM Ql (Urine sed) 0 SEEN /hpf 5-10 [facility] Thin prep Papanicolaou smear with manual screeningOrdered By: Rodolfo Das on 12-09-2022 Thin prep Papanicolaou smear with manual screening 20 U/L 15-37 [facility] Thin prep Papanicolaou smear with manual screening 4 5-15 [facility] Urine blood detectionOrdered By: Rodolfo Das on 12-09-2022 RBC Ql (U) 10 /ul Negative [facility] RBC Ql (U) 0 SEEN /hpf 0-5 [facility] Urine clarityOrdered By: Vilma Das on 12-09-2022 Clarity (U) Sl. Cloudy Clear [facility] Urine color determinationOrd ered By: Rodolfo Das on 12-09-2022 Color (U) Yellow Yellow [facility] Urine glucose detectionOrder ed By: Rodolfo Das on 12-09-2022 Glucose Ql (U) Normal mg/dl Normal [facility] Urine leukocyte esterase det ection by dipstickOrdered By: Rodolfo Das on 12-09-2022 Leukocyte esterase Test strip Ql (U) 500 /ul Negative [facility] Urine pHOrdered By: Rodolfo alfaro on 12-09-2022 pH (U) 6.0 [pH] 5.0 - 8.0 [facility] Urine sediment bacteria coun t by microscopy (number/high power field)Ordered By: Rodolfo Das on 12-09-2022 Bacteria LM.HPF (Urine sed) [#/Area] 1 /[HPF] None Seen [facility] Urine specific gravity measu rementOrdered By: Rodolfo Das on 12-09-2022 Specific gravity (U) [Rel density] 1.025 1.002-1.030 [facility] Urobilinogen Auto test strip Ql (U)Ordered By: Rodolfo Das on 12-09-2022 Urobilinogen Ql (U) Normal mg/dl Normal [facility] .Auto Diffon 12-04-2022 Basophil, Absolute 0.0 10 3/mcL Normal 0.0-0.2 [facility] ([place]) Comment on above: Performed By: #### B JULIO CESAR BROWN, ANEU, GFR, CBC, ADIFF #### [address] [address] Basophils/100 WBC (Bld) 0.5 % Normal 0.0-2.5 [facility] ([place]) Comment on above: Performed By: #### B JULIO CESAR BROWN, ANEU, GFR, CBC, ADIFF #### [address] [address] Eosinophil, Absolute 0.1 10 3/mcL Normal 0.0-0.4 [facility] ([place]) Comment on above: Performed By: #### B JULIO CESAR BROWN, ANEU, GFR, CBC, ADIFF #### [address] [address] Eosinophils/100 WBC (Bld) 1.0 % Normal 0.0-7.0 [facility] ([place]) Comment on above: Performed By: #### B JULIO CESAR BROWN, ANEU, GFR, CBC, ADIFF #### [address] [address] Lymphocyte, Absolute 2.6 10 3/mcL Normal 0.8-3.9 [facility] ([place]) Comment on above: Performed By: #### B JULIO CESAR BROWN, ANEU, GFR, CBC, ADIFF #### [address] [address] Lymphocytes/100 WBC (Bld) 26.3 % Normal 10.0-50.0 [facility] ([place]) Comment on above: Performed By: #### B JULIO CESAR BROWN, ANEU, GFR, CBC, ADIFF #### [address] [address] Monocyte, Absolute 0.7 10 3/mcL Normal 0.2-1.0 [facility] ([place]) Comment on above: Performed By: #### B JULIO CESAR BROWN, ANEU, GFR, CBC, ADIFF #### [address] [address] Monocytes/100 WBC (Bld) 7.1 % Normal 1.7-13.0 [facility] ([place]) Comment on above: Performed By: #### B JULIO CESAR BROWN, ANEU, GFR, CBC, ADIFF #### [address] [address] Neutrophils/100 WBC (Bld) 65.1 % Normal 37.0-80.0 [facility] ([place]) Comment on above: Performed By: #### B JULIO CESAR BROWN, ANEU, GFR, CBC, ADIFF #### [address] [address] .GFRon 12-04-2022 GFR 123 ml/min/1.73sqm Normal [facility] ([place]) Comment on above: Result Comment: GFR Population mean for , Non- Americans Ages 20-29 = 116 mL/min/1.73 sq.m. Ages 30-39 = 107 mL/min/1.73 sq.m. Ages 40-49 = 99 mL/min/1.73 sq.m. Ages 50-59 = 93 mL/min/1.73 sq.m. Ages 60-69 = 85 mL/min/1.73 sq.m. Ages 70+ = 75 mL/min/1.73 sq.m. Chronic Kidney Disease: Less than 60 mL/min/1.73 square meters End Stage Renal Disease: Less than 15 mL/min/1.73 square meters Performed By: #### B JULIO CESAR BROWN, ANEU, GFR, CBC, ADIFF #### [address] [address] GFR Non- 101 ml/min/1.73sqm Normal [facility] ([place]) Comment on above: Result Comment: GFR Population mean for , Non- Americans Ages 20-29 = 116 mL/min/1.73 sq.m. Ages 30-39 = 107 mL/min/1.73 sq.m. Ages 40-49 = 99 mL/min/1.73 sq.m. Ages 50-59 = 93 mL/min/1.73 sq.m. Ages 60-69 = 85 mL/min/1.73 sq.m. Ages 70+ = 75 mL/min/1.73 sq.m. Chronic Kidney Disease: Less than 60 mL/min/1.73 square meters End Stage Renal Disease: Less than 15 mL/min/1.73 square meters Performed By: #### B JULIO CESAR BROWN, ANEU, GFR, CBC, ADIFF #### [address] [address] .JULIO CESARon 12-04-2022 Monocyte Distribution Width 17.49 Normal 0.00-20.00 [facility] ([place]) Comment on above: Result Comment: For ED adult patients suspected of sepsis, MDW<=20.0 does not rule out sepsis or risk of sepsis Performed By: #### B JULIO CESAR BROWN, ANEU, GFR, CBC, ADIFF #### [address] [address] .NEUABSon 12-04-2022 Neutrophil, Absolute 6.3 10 3/mcL High 2.9-6.2 [facility] ([place]) Comment on above: Performed By: #### B JULIO CESAR BROWN, ANEU, GFR, CBC, ADIFF #### [address] [address] BMPon 12-04-2022 BUN/Creatinine Ratio 17 ratio Normal 7-27 [facility] ([place]) Comment on above: Performed By: #### B JULIO CESAR BROWN, BAKARI, GFR, CBC, ADIFF #### [address] [address] Calcium [Mass/Vol] 9.2 mg/dL Normal 8.4-10.2 [facility] ([place]) Comment on above: Performed By: #### B JULIO CESAR BROWN, BAKARI, GFR, CBC, ADIFF #### [address] [address] Chloride [Moles/Vol] 104 mmol/L Normal 98-107 [facility] ([place]) Comment on above: Performed By: #### B JULIO CESAR BROWN, BAKARI, GFR, CBC, ADIFF #### [address] [address] CO2 [Moles/Vol] 26 mmol/L Normal 22-29 [facility] ([place]) Comment on above: Performed By: #### B JULIO CESAR BROWN, BAKARI, GFR, CBC, ADIFF #### [address] [address] Creatinine [Mass/Vol] 0.70 mg/dL Normal 0.55-1.02 [facility] ([place]) Comment on above: Performed By: #### B JULIO CESAR BROWN, ANEU, GFR, CBC, ADIFF #### [address] [address] Electrolyte Balance 11.0 mEq/L Normal 4.0-15.0 [facility] [place]) Comment on above: Performed By: #### B JULIO CESAR BROWN, ANEU, GFR, CBC, ADIFF #### [address] [address] Glucose [Mass/Vol] 126 mg/dL High 70-105 [facility] ([place]) Comment on above: Performed By: #### B JULIO CESAR BROWN, ANEU, GFR, CBC, ADIFF #### [address] [address] Potassium [Moles/Vol] 4.5 mmol/L Normal 3.5-5.1 [facility] ([place]) Comment on above: Performed By: #### B JULIO CESAR BROWN, BAKARI, GFR, CBC, ADIFF #### [address] [address] Sodium [Moles/Vol] 141 mmol/L Normal 136-145 [facility] ([place]) Comment on above: Performed By: #### B JULIO CESAR BROWN, BAKARI, GFR, CBC, ADIFF #### [address] [address] Urea nitrogen [Mass/Vol] 12 mg/dL Normal 7-18 [facility] ([place]) Comment on above: Performed By: #### B JULIO CESAR BROWN, BAKARI, GFR, CBC, ADIFF #### [address] [address] CBCon 12-04-2022 Erythrocyte distribution width (RBC) [Ratio] 14.4 % Normal 11.5-14.5 [facility]) Comment on above: Performed By: #### B JULIO CESAR BROWN, BAKARI, GFR, CBC, ADIFF #### [address] [address] Hematocrit (Bld) [Volume fraction] 39.4 % Normal 37.0-47.0 [facility] ([place]) Comment on above: Performed By: #### B JULIO CESAR BROWN, ANEU, GFR, CBC, ADIFF #### [address] [address] Hgb 13.1 G/dL Normal 12.0-16.0 [facility] ([place]) Comment on above: Performed By: #### B JULIO CESAR BROWN, BAKARI, GFR, CBC, ADIFF #### [address] [address] MCH (RBC) [Entitic mass] 29.2 pg Normal 27.0-31.2 [facility] ([place]) Comment on above: Performed By: #### B JULIO CESAR BROWN, BAKARI, GFR, CBC, ADIFF #### [address] [address] MCHC 33.2 G/dL Normal 33.0-37.0 [facility] ([place]) Comment on above: Performed By: #### B JULIO CESAR BROWN, BAKARI, GFR, CBC, ADIFF #### [address] [address] MCV (RBC) [Entitic vol] 87.9 fL Normal 80.0-94.0 A [facility] ([place]) Comment on above: Performed By: #### B JULIO CESAR BROWN, BAKARI, GFR, CBC, ADIFF #### [address] [address] Platelet 373 10 3/mcL Normal 130-400 [facility] ([place]) Comment on above: Performed By: #### B JULIO CESAR BROWN, BAKARI, GFR, CBC, ADIFF #### [address] [address] Platelet mean volume (Bld) [Entitic vol] 7.2 fL Low 7.4-10.4 [facility] ([place]) Comment on above: Performed By: #### B JULIO CESAR BROWN, BAKARI, GFR, CBC, ADIFF #### [address] [address] RBC 4.48 10 6/mcL Normal 4.20-5.40 [facility] ([place]) Comment on above: Performed By: #### B JULIO CESAR BROWN, ANEU, GFR, CBC, ADIFF #### [address] [address] WBC 9.7 10 3/mcL Normal 4.6-10.8 [facility] ([place]) Comment on above: Performed By: #### B MP, MDW, ANEU, GFR, CBC, ADIFF #### [id number] [place], [place] [address] CT HEAD OR BRAIN W/O CONTRAS Ton 12-04-2022 CT HEAD OR BRAIN W/O CONTRAST ORIGINAL EXAMINATION: CT OF THE HEAD WITHOUT CONTRAST 12/04/2022 6:49 pm TECHNIQUE: CT of the head was performed without the administration of intravenous contrast. Automated exposure control, iterative reconstruction, and/or weight based adjustment of the mA/kV was utilized to reduce the radiation dose to as low as reasonably achievable. COMPARISON: None. HISTORY: ORDERING SYSTEM PROVIDED HISTORY: Reason for Exam: pt c/o numbness and tingling in the left side of her face and neck, increasing over the last 2 hours. NKI. Left-sided facial pain and paresthesias, left upper and lower extremity paresthesias FINDINGS: BRAIN/VENTRICLES: There is no acute intracranial hemorrhage, mass effect or midline shift. No abnormal extra-axial fluid collection. The ching-white differentiation is maintained without evidence of an acute infarct. There is no evidence of hydrocephalus. ORBITS: The visualized portion of the orbits demonstrate no acute abnormality. SINUSES: The visualized paranasal sinuses and mastoid air cells demonstrate no acute abnormality. SOFT TISSUES/SKULL: No acute abnormality of the visualized skull or soft tissues. IMPRESSION: No acute intracranial abnormality. Interpreted by: Martin Mary Preliminary Report By: Martin Mary Electronically signed By Martin Mary Dictated Date: 12/04/2022 7:19:30 PM Prelim Date: 12/04/2022 7:24:52 PM Sign Date: 12/04/2022 7:24:52 PM Ordering Provider: DEB VÁSQUEZ Normal [facility] ([place]) Glucose Glucometer (BldC) [M ass/Vol]Ordered By: Ozzy Bright on 11-23-2022 Glucose [Mass/Vol] 102 mg/dL 74-106 [facility] Comment on above: MANAGEMENT OF PATIEN T CARE PER NURSING PROTOCOL Basophil percentageOrdered B y: Ozzy Bright on 11-22-2022 Chloride [Moles/Vol] 109 mmol/L 98-107 [facility] Glucose [Mass/Vol] 89 mg/dL 74-106 [facility] Potassium [Moles/Vol] 3.8 mmol/L 3.5-5.1 [facility] Sodium [Moles/Vol] 139 mmol/L 136-145 [facility] Glucose Glucometer (BldC) [M ass/Vol]Ordered By: Ozzy Bright on 11-22-2022 Glucose [Mass/Vol] 73 mg/dL 74-106 [facility] Comment on above: MANAGEMENT OF PATIEN T CARE PER NURSING PROTOCOL Laboratory - Chemistry and C hemistry - challengeOrdered By: Ozzy Bright on 11-22-2022 CO2 [Moles/Vol] 25.0 mmol/L 21.0-32.0 [facility] Urea nitrogen/Creatinine [Mass ratio] 16.7 mg/mg 10- [facility] No Panel InformationOrdered By: Ozzy Bright on 11-22-2022 Estimated GFR (MDRD) Amer 140 mL/min >60 [facility] Comment on above: GFR Calc Estimated GFR (MDRD) Non-Af Amer 115 mL/min >60 [facility] Comment on above: Non- GFR Calc Serum or plasma calcium cherelle urement (mass/volume)Ordered By: Ozzy Bright on 11-22-2022 Calcium [Mass/Vol] 9.4 mg/dL 8.5-10.1 [facility] Serum or plasma creatinine m easurement (mass/volume)Ordered By: Ozzy Bright on 11-22-2022 Creatinine [Mass/Vol] 0.66 mg/dL 0.55-1.02 [facility] Comment on above: The validity of the calculated GFR & GFRAA in patients over 70 years has not been determined. Clinical correlation is essential. Serum or plasma urea nitroge n measurement (mass/volume)Ordered By: Ozzy Bright on 11-22-2022 Urea nitrogen [Mass/Vol] 11 mg/dL 7-18 [facility] Thin prep Papanicolaou smear with manual screeningOrdered By: Ozzy Bright on 11-22-2022 Thin prep Papanicolaou smear with manual screening 5 5-15 [facility] Cervical or vagninal specime n microscopic examination by cytology stain (reported asOrdered By: Zeus Miller on 10-03-2022 Cytology report Cyto stain Doc (Cvx/Vag) Comment . [facility] Comment on above: The Pap smear is a s creening test designed to aid in thedetection of premalignant and malignant conditions of theuterine cervix. It is not a diagnostic procedure andshould not be used as the sole means of detecting cervicalcancer. Both false-positive and false-negative reports dooccur. Laboratory - CytologyOrdered By: Zeus Miller on 10-03-2022 Workers Compensation Claims Examiner Cyto stain Nom (Cvx/Vag) [ID] Comment . [facility] Comment on above: Naina Pinedo, Cytot echnologist (ASCP) Laboratory - Miscellaneous t estsOrdered By: Zeus Miller on 10-03-2022 Service comment (Unsp spec) [Interp] Comment . [facility] Comment on above: This liquid based Th inPrep(R) pap test was screened withthe use of an image guided system. Service comment (Unsp spec) [Interp] . . [facility] No Panel InformationOrdered By: Zeus Miller on 10-03-2022 Human Papillomavirus Screen Comment . [facility] Comment on above: The HPV DNA reflex c adria were not met with this specimenresult therefore, no HPV testing was performed.Performed at: [facility] [id number] Director: Idalia Yoo MD, Phone: [phone] Pathology report final diagnosis Narrative Comment . [facility] Comment on above: NEGATIVE FOR INTRAEP ITHELIAL LESION OR MALIGNANCY. Basophil percentageOrdered B y: Andreas Friend on 09-19-2022 Bilirubin [Mass/Vol] 0.80 mg/dL 0.20-1.00 [facility] Comment on above: For patients on eltr ombopag therapy, use of Dimension [place] TBIL is not recommended. Chloride [Moles/Vol] 108 mmol/L 98-107 [facility] Cholesterol [Mass/Vol] 232 mg/dL <200 [facility] Comment on above: <200 mg/dL Desirable 200-240 mg/dL Borderline >240 mg/dL High Risk Glucose [Mass/Vol] 94 mg/dL 74-106 [facility] Potassium [Moles/Vol] 4.5 mmol/L 3.5-5.1 [facility] Protein [Mass/Vol] 7.4 g/dL 6.4-8.2 [facility] Sodium [Moles/Vol] 138 mmol/L 136-145 [facility] Triglyceride [Mass/Vol] 215 mg/dL <199 [facility] Comment on above: The drugs N-Acetylcy steine and Metamizole may falsely depress this assay.Serum Triglycerides Reference Interval Normal <150 mg/dL Borderline high 150 - 199 mg/dL High 200 - 499 mg/dL Very High > or = 500 mg/dL WBC (Bld) [#/Vol] 8.5 10*3/uL 4.4-11.0 [facility] Blood erythrocytes count (nu mber/volume)Ordered By: Andreas Oliva on 09-19-2022 RBC (Bld) [#/Vol] 4.65 10*6/uL 4.2-5.4 [facility] Blood hemoglobin measurement (mass/volume)Ordered By: Andreas Oliva on 09-19-2022 Hemoglobin (Bld) [Mass/Vol] 13.6 g/dL 12.0-15.0 [facility] Blood platelet mean volumeOr dered By: Andreas Oliva on 09-19-2022 Platelet mean volume (Bld) [Entitic vol] 9.0 fL 6.2-12.0 [facility] Determination of erythrocyte mean corpuscular volume (MCV)Ordered By: Andreas Oliva on 09-19-2022 MCV (RBC) [Entitic vol] 88.4 fL 81-99 [facility] Hematocrit Auto (Bld) [Volum e fraction]Ordered By: Andreas Oliva on 09-19-2022 Hematocrit (Bld) [Volume fraction] 41.1 % 37-47 [facility] Laboratory - Chemistry and C hemistry - challengeOrdered By: Andreas Oliva on 09-19-2022 ALP [Catalytic activity/Vol] 75 U/L 45-117 [facility] ALT [Catalytic activity/Vol] 199 U/L 13-56 [facility] CO2 [Moles/Vol] 25.0 mmol/L 21.0-32.0 [facility] Cobalamin (Vitamin B12) [Mass/Vol] 1606 pg/mL 211-911 [facility] Free T4 [Mass/Vol] 1.12 ng/dL 0.76-1.46 [facility] Globulin (S) [Mass/Vol] 3.7 g/dL 2.2-4.2 [facility] Urea nitrogen/Creatinine [Mass ratio] 13.4 mg/mg 10-20 [facility] Laboratory - Hematology and Cell countsOrdered By: Andreas Oliva on 09-19-2022 Erythrocyte distribution width (RBC) [Entitic vol] 43.0 fL 35.1-43.9 [facility] Erythrocyte distribution width (RBC) [Ratio] 13.3 % 11.6-14.6 [facility] MCH (RBC) [Entitic mass] 29.2 pg 27.0-32.0 [facility] MCHC Auto (RBC) [Mass/Vol]Or dered By: Andreas Oliva on 09-19-2022 MCHC (RBC) [Mass/Vol] 33.1 g/dL 32-36 [facility] No Panel InformationOrdered By: Andreas Oliva on 09-19-2022 Estimated GFR (MDRD) Amer 109 mL/min >60 [facility] Comment on above: GFR Calc Estimated GFR (MDRD) Non-Af Amer 90 mL/min >60 [facility] Comment on above: Non- GFR Calc Thyroid Stimulating Hormone (TSH) 3.75 uIU/mL 0.358-3.74 [facility] Vitamin D 25-Hydroxy 16.1 ng/mL [facility] Comment on above: Vitamin D 25(OH) Sta tus Range Deficiency <20 ng/mL (50nmol/L) Insufficiency 20 - 30 ng/mL (50 - 75 nmol/L) Sufficiency 30 - 100 ng/mL (75 - 250 nmol/L) Toxicity >100 ng/mL (>250 nmol/L) Platelets bldOrdered By: Mello Oliva on 09-19-2022 Platelets (Bld) [#/Vol] 337 10*3/uL 150-450 [facility] Serum or plasma albumin cherelle urement (mass/volume)Ordered By: Andreas Oliva on 09-19-2022 Albumin [Mass/Vol] 3.7 g/dL 3.2-5.0 [facility] Serum or plasma albumin/glob ulin mass ratioOrdered By: Andreas Oliva on 09-19-2022 Albumin/Globulin [Mass ratio] 1.0 {ratio} 0.9-2.4 [facility] Serum or plasma calcium cherelle urement (mass/volume)Ordered By: Andraes Oliva on 09-19-2022 Calcium [Mass/Vol] 9.5 mg/dL 8.5-10.1 [facility] Serum or plasma cholesterol in HDL measurement (mass/volume)Ordered By: Andreas Oliva on 09-19-2022 Cholesterol in HDL [Mass/Vol] 33 mg/dL >40 [facility] Comment on above: The drugs N-Acetylcy steine and Metamizole may falsely depress this assay. Reference Range HDL <40 mg/dL Low HDL Cholesterol HDL >or= 60 mg/dL High HDL Cholesterol Serum or plasma cholesterol in VLDL measurement (mass/volume)Ordered By: Andreas Oliva on 09-19-2022 Cholesterol in VLDL [Mass/Vol] 43 mg/dL 5-40 [facility] Serum or plasma creatinine m easurement (mass/volume)Ordered By: Andreas Oliva on 09-19-2022 Creatinine [Mass/Vol] 0.82 mg/dL 0.55-1.02 [facility] Comment on above: The validity of the calculated GFR & GFRAA in patients over 70 years has not been determined. Clinical correlation is essential. Serum or plasma low density lipoprotein (LDL) cholesterol measurement (mass/volume)Ordered By: Andreas Oliva on 09-19-2022 Cholesterol in LDL [Mass/Vol] 156 mg/dL 0-130 [facility] Serum or plasma urea nitroge n measurement (mass/volume)Ordered By: Andreas Oliva on 09-19-2022 Urea nitrogen [Mass/Vol] 11 mg/dL 7-18 [facility] Thin prep Papanicolaou smear with manual screeningOrdered By: Andreas Oliva on 09-19-2022 Thin prep Papanicolaou smear with manual screening 94 U/L 15-37 [facility] Thin prep Papanicolaou smear with manual screening 5 5-15 [facility] Whole blood hemoglobin A1c/t otal hemoglobin ratio (mass fraction)Ordered By: Andreas Oliva on 09-19-2022 HbA1c (Bld) [Mass fraction] 6.7 % 3.8-5.6 [facility] Comment on above: Normal < 5.7 % Predi abetic 5.7 - 6.4 % Diabetic >or= 6.5 % Please note range changes. Absolute lymphocyte countOrd ered By: Dr. Etienne on 08-15-2022 Lymphocytes Auto (Unsp spec) [#/Vol] 2.71 10*3/uL 0.83-4.51 [facility] Basophil percentageOrdered B y: Dr. Etienne on 08-15-2022 Basophils/100 WBC (Bld) 0.5 % 0-1 [facility] Bilirubin [Mass/Vol] 0.40 mg/dL 0.20-1.00 [facility] Comment on above: For patients on eltr ombopag therapy, use of Dimension [place] TBIL is not recommended. Chloride [Moles/Vol] 109 mmol/L 98-107 [facility] Eosinophils/100 WBC (Bld) 1.8 % 0-5 [facility] Glucose [Mass/Vol] 121 mg/dL 74-106 [facility] Comment on above: Fasting Glucose resu lt from 100 to 125 mg/dL suggests IMPAIRED HOMEOSTASIS per A.D.A. criteria. Neutrophils (Bld) [#/Vol] 5.7 10*3/uL 2.0-7.7 [facility] Neutrophils/100 WBC (Bld) 59.6 % 47-70 [facility] Potassium [Moles/Vol] 3.9 mmol/L 3.5-5.1 [facility] Comment on above: Slight Hemolysis, Re sult may be falsely increased. Protein [Mass/Vol] 7.1 g/dL 6.4-8.2 [facility] Sodium [Moles/Vol] 140 mmol/L 136-145 [facility] WBC (Bld) [#/Vol] 9.6 10*3/uL 4.4-11.0 [facility] Basophil percentage 0-5 SEEN /hpf 0-5 [facility] Beta hCG serum qualOrdered B y: Dr. Etienne on 08-15-2022 Beta HCG ( test) Ql Negative [facility] Bilirubin Test strip Ql (U)O rdered By: Dr. Etienne on 08-15-2022 Bilirubin Ql (U) Negative Negative [facility] Blood erythrocytes count (nu mber/volume)Ordered By: Dr. Etienne on 08-15-2022 RBC (Bld) [#/Vol] 4.39 10*6/uL 4.2-5.4 [facility] Blood hemoglobin measurement (mass/volume)Ordered By: Dr. Etienne on 08-15-2022 Hemoglobin (Bld) [Mass/Vol] 12.6 g/dL 12.0-15.0 [facility] Blood lymphocytes/100 leukoc ytesOrdered By: Dr. Etienne on 08-15-2022 Lymphocytes/100 WBC (Bld) 28.3 % 19-41 [facility] Blood monocytes/100 leukocyt esOrdered By: Dr. Etienne on 08-15-2022 Monocytes/100 WBC (Bld) 9.2 % 0-10 [facility] Blood platelet mean volumeOr dered By: Dr. Etienne on 08-15-2022 Platelet mean volume (Bld) [Entitic vol] 9.0 fL 6.2-12.0 [facility] Determination of erythrocyte mean corpuscular volume (MCV)Ordered By: Dr. Etienne on 08-15-2022 MCV (RBC) [Entitic vol] 87.5 fL 81-99 [facility] Hematocrit Auto (Bld) [Volum e fraction]Ordered By: Dr. Etienne on 08-15-2022 Hematocrit (Bld) [Volume fraction] 38.4 % 37-47 [facility] Ketones Test strip Ql (U)Ord ered By: Dr. Etienne on 08-15-2022 Ketones Ql (U) Negative Negative [facility] Laboratory - Chemistry and C hemistry - challengeOrdered By: Dr. Etienne on 08-15-2022 ALP [Catalytic activity/Vol] 67 U/L 45-117 [facility] ALT [Catalytic activity/Vol] 128 U/L 13-56 [facility] CO2 [Moles/Vol] 25.0 mmol/L 21.0-32.0 [facility] Globulin (S) [Mass/Vol] 3.9 g/dL 2.2-4.2 [facility] Lipase [Catalytic activity/Vol] 45 U/L 13-75 [facility] Comment on above: Please note:LIPASE r evised reference range effective 22. New Lipase methodology. Expected to produce lower values than the previous assay method. NEW Reference Range: 13 - 75 U/L Urea nitrogen/Creatinine [Mass ratio] 16.2 mg/mg 10-20 [facility] Laboratory - Hematology and Cell countsOrdered By: Dr. Etienne on 08-15-2022 Erythrocyte distribution width (RBC) [Entitic vol] 43.6 fL 35.1-43.9 [facility] Erythrocyte distribution width (RBC) [Ratio] 13.5 % 11.6-14.6 [facility] Immature granulocytes/100 WBC (Bld) 0.600 % 0.0-0.9 [facility] Comment on above: IG% - Immature Granu locytes (promyelocytes, myelocytes and metamyelocytes) > 1% indicates that a LEFT SHIFT is Present. MCH (RBC) [Entitic mass] 28.7 pg 27.0-32.0 [facility] Nucleated RBC/100 WBC (Bld) [Ratio] 0 % 0-5 [facility] MCHC Auto (RBC) [Mass/Vol]Or dered By: Dr. Etienne on 08-15-2022 MCHC (RBC) [Mass/Vol] 32.8 g/dL 32-36 [facility] Mucus LM Ql (Urine sed)Order ed By: Dr. Etienne on 08-15-2022 Mucus Ql (Urine sed) 0 SEEN /hpf [facility] Nitrite Test strip Ql (U)Ord ered By: Dr. Etienne on 08-15-2022 Nitrite Ql (U) Negative Negative [facility] No Panel InformationOrdered By: Dr. Etienne on 08-15-2022 Estimated Creatinine Clearance Calc 122.99 ml/min [facility] Estimated GFR (MDRD) Amer 135 mL/min >60 [facility] Comment on above: GFR Calc Estimated GFR (MDRD) Non-Af Amer 112 mL/min >60 [facility] Comment on above: Non- GFR Calc [place] Level 0.60 mmol/L 0.60-1.20 [facility] Platelets bldOrdered By: Dr. Etienne on 08-15-2022 Platelets (Bld) [#/Vol] 311 10*3/uL 150-450 [facility] Protein Test strip Ql (U)Ord ered By: Dr. Etienne on 08-15-2022 Protein Ql (U) 15 mg/dl Negative [facility] Serum or plasma albumin cherelle urement (mass/volume)Ordered By: Dr. Etienne on 08-15-2022 Albumin [Mass/Vol] 3.2 g/dL 3.2-5.0 [facility] Serum or plasma albumin/glob ulin mass ratioOrdered By: Dr. Etienne on 08-15-2022 Albumin/Globulin [Mass ratio] 0.8 {ratio} 0.9-2.4 [facility] Serum or plasma calcium cherelle urement (mass/volume)Ordered By: Dr. Etienne on 08-15-2022 Calcium [Mass/Vol] 9.0 mg/dL 8.5-10.1 [facility] Serum or plasma creatinine m easurement (mass/volume)Ordered By: Dr. Etienne on 08-15-2022 Creatinine [Mass/Vol] 0.68 mg/dL 0.55-1.02 [facility] Comment on above: The validity of the calculated GFR & GFRAA in patients over 70 years has not been determined. Clinical correlation is essential. Serum or plasma urea nitroge n measurement (mass/volume)Ordered By: Dr. Etienne on 08-15-2022 Urea nitrogen [Mass/Vol] 11 mg/dL 7-18 [facility] Squamous epithelial cells de tection in urine sediment by light microscopyOrdered By: Dr. Etienne on 08-15-2022 Epithelial cells.squamous LM Ql (Urine sed) 0-5 SEEN /hpf 5-10 [facility] Thin prep Papanicolaou smear with manual screeningOrdered By: Dr. Etienne on 08-15-2022 Thin prep Papanicolaou smear with manual screening 49 U/L 15-37 [facility] Comment on above: Slight Hemolysis, Re sult may be falsely increased. Thin prep Papanicolaou smear with manual screening 6 5-15 [facility] Urine blood detectionOrdered By: Dr. Etienne on 08-15-2022 RBC Ql (U) Negative Negative [facility] RBC Ql (U) 0 SEEN /hpf 0-5 [facility] Urine clarityOrdered By: Dr. Etienne on 08-15-2022 Clarity (U) Sl. Cloudy Clear [facility] Urine color determinationOrd ered By: Dr. Etienne on 08-15-2022 Color (U) Yellow Yellow [facility] Urine glucose detectionOrder ed By: Dr. Etienne on 08-15-2022 Glucose Ql (U) Normal mg/dl Normal [facility] Urine leukocyte esterase det ection by dipstickOrdered By: Dr. Etienne on 08-15-2022 Leukocyte esterase Test strip Ql (U) 25 /ul Negative [facility] Urine pHOrdered By: Dr. Michael jacinto on 08-15-2022 pH (U) 6.0 [pH] 5.0 - 8.0 [facility] Urine sediment bacteria coun t by microscopy (number/high power field)Ordered By: Dr. Etienne on 08-15-2022 Bacteria LM.HPF (Urine sed) [#/Area] 1 /[HPF] None Seen [facility] Urine specific gravity measu rementOrdered By: Dr. Etienne on 08-15-2022 Specific gravity (U) [Rel density] 1.020 1.002-1.030 [facility] Urobilinogen Auto test strip Ql (U)Ordered By: Dr. Etienne on 08-15-2022 Urobilinogen Ql (U) Normal mg/dl Normal [facility] Beta hCG serum qualOrdered B y: Dr. Dutta on 08-08-2022 Beta HCG ( test) Ql Negative [facility] Thin prep Papanicolaou smear with manual screeningOrdered By: Zeus Miller on 03-03-2022 Genital Culture Streptococcus agalac tiae (B) [facility] Gram stain for investigation of transfusion reactionOrdered By: Zeus Miller on 03-01-2022 Microscopic observation Gram stain Nom (Unsp spec) [facility] Laboratory - Chemistry and C hemistry - challengeOrdered By: Zeus Miller on 02-28-2022 Free T4 [Mass/Vol] 1.05 ng/dL 0.76-1.46 [facility] No Panel InformationOrdered By: Zeus Miller on 02-28-2022 Dehydroepiandrosterone Sulfate 130.0 ug/dL 84.8-378.0 [facility] No Panel InformationOrdered By: Karina Guerra on 02-28-2022 [place] Level 0.80 mmol/L 0.60-1.20 [facility] Thyroid Stimulating Hormone (TSH) 3.69 uIU/mL 0.358-3.74 [facility] Serum or plasma 17-hydroxypr ogesterone measurement (mass/volume)Ordered By: Zeus Miller on 02-28-2022 17-Hydroxyprogesterone [Mass/Vol] 61 ng/dL . [facility] Comment on above: Adult Female Follicu lar 15 - 70 Luteal 35 - 290Performed at: [facility] [id number] Director: Harsh Harris MD, Phone: [phone] Serum or plasma testosterone free measurement (mass/volume)Ordered By: Zeus Miller on 02-28-2022 Testosterone Free [Mass/Vol] 2.8 pg/mL 0.0-4.2 [facility] Serum or plasma thyroperoxid ase antibody assay (units/volume)Ordered By: Zeus Miller on 02-28-2022 TPO Ab Qn [IU]/mL 0-34 [facility] Comment on above: Performed at: [address] [id number] Director: Neeraj Marte PhD, Phone: [phone] at: [employer] [address] [id number] Director: Harsh Harris MD, Phone: [phone] No Panel InformationOrdered By: Andreas Oliva on 02-17-2022 Stool Calprotectin 137 ug/g 0-120 [facility] Comment on above: Concentration Interp retation Follow-Up<16 - 50 ug/g Normal None>50 -120 ug/g Borderline Re-evaluate in 4-6 weeks >120 ug/g Abnormal Repeat as clinically indicatedPerformed at: [facility] [id number] Director: Harsh Harris MD, Phone: [phone] Stool Pancreatic Elastase 329 >200 [facility] Comment on above: Result Units: ug Graciela st./g Severe Pancreatic Insufficiency: <100 Moderate Pancreatic Insufficiency: 100 - 200 Normal: >200Performed at: [facility] [id number] Director: Harsh Harris MD, Phone: [phone] Stool lactoferrin detection by immunoassayOrdered By: Andreas Oliva on 02-17-2022 Lactoferrin IA Ql (Stl) [facility] Absolute lymphocyte countOrd ered By: Andreas Oliva on 02-15-2022 Lymphocytes Auto (Unsp spec) [#/Vol] 2.13 10*3/uL 0.83-4.51 [facility] Albumin Elph [Mass/Vol]Order ed By: Andreas Oliva on 02-15-2022 Albumin [Mass/Vol] 3.6 g/dL 2.9-4.4 [facility] Atypical perinuclear antineu trophil cytoplasmic antibodies measurementOrdered By: Andreas Oliva on 02-15-2022 Neutrophil cytoplasmic Ab.perinuclear.atypical IF (S) [Titer] <1:20 titer Neg:<1:20 [facility] Comment on above: The atypical pANCA p attern has been observed in asignificant percentage of patients with ulcerative colitis,primary sclerosing cholangitis and autoimmune hepatitis. Basophil percentageOrdered B y: Andreas Oliva on 02-15-2022 Ammonia (P) [Moles/Vol] 20.0 umol/L 11-32 [facility] Basophil percentage < 0.2 AI 0.0-0.9 [facility] Basophils/100 WBC (Bld) 0.5 % 0-1 [facility] Bilirubin [Mass/Vol] 0.40 mg/dL 0.20-1.00 [facility] Comment on above: For patients on eltr ombopag therapy, use of Dimension [place] TBIL is not recommended. Chloride [Moles/Vol] 109 mmol/L 98-107 [facility] Eosinophils/100 WBC (Bld) 2.3 % 0-5 [facility] Glucose [Mass/Vol] 112 mg/dL 74-106 [facility] Comment on above: Fasting Glucose resu lt from 100 to 125 mg/dL suggests IMPAIRED HOMEOSTASIS per A.D.A. criteria. LDH [Catalytic activity/Vol] 187 U/L 84-246 [facility] Neutrophils (Bld) [#/Vol] 4.4 10*3/uL 2.0-7.7 [facility] Neutrophils/100 WBC (Bld) 60.9 % 47-70 [facility] Potassium [Moles/Vol] 4.4 mmol/L 3.5-5.1 [facility] Protein [Mass/Vol] 7.4 g/dL 6.4-8.2 [facility] Sodium [Moles/Vol] 137 mmol/L 136-145 [facility] WBC (Bld) [#/Vol] 7.3 10*3/uL 4.4-11.0 [facility] Blood erythrocytes count (nu mber/volume)Ordered By: Andreas Oliva on 02-15-2022 RBC (Bld) [#/Vol] 4.35 10*6/uL 4.2-5.4 [facility] Blood hemoglobin measurement (mass/volume)Ordered By: Andreas Oliva on 02-15-2022 Hemoglobin (Bld) [Mass/Vol] 12.9 g/dL 12.0-15.0 [facility] Blood lymphocytes/100 leukoc ytesOrdered By: Andreas Oliva on 02-15-2022 Lymphocytes/100 WBC (Bld) 29.1 % 19-41 [facility] Blood monocytes/100 leukocyt esOrdered By: Andreas Oliva on 02-15-2022 Monocytes/100 WBC (Bld) 6.8 % 0-10 [facility] Blood platelet mean volumeOr dered By: Andreas Oliva on 02-15-2022 Platelet mean volume (Bld) [Entitic vol] 8.9 fL 6.2-12.0 [facility] Determination of erythrocyte mean corpuscular volume (MCV)Ordered By: Andreas Oliva on 02-15-2022 MCV (RBC) [Entitic vol] 91.3 fL 81-99 [facility] Erythrocyte sedimentation ra teOrdered By: Andreas Oliva on 02-15-2022 ESR (Bld) [Velocity] 28 mm/h 0-30 [facility] HIV 1 and HIV-2 antibody ass ay with HIV-1 p24 antigen detectionOrdered By: Andreas Oliva on 02-15-2022 HIV 1+2 Ab+HIV1 p24 Ag IA Ql Non-Reactive Nonreactive [facility] Hematocrit Auto (Bld) [Volum e fraction]Ordered By: Andreas Oliva on 02-15-2022 Hematocrit (Bld) [Volume fraction] 39.7 % 37-47 [facility] INR in Blood by Coagulation assayOrdered By: Andreas Oliva on 02-15-2022 INR Coag (Bld) [Relative time] 1.1 {INR} [facility] Interpretation of serum or p lasma protein pattern by immunofixation (narrative resultOrdered By: Andreas Oliva on 02-15-2022 Protein Fractions Immunofixation [place] [Interp] See comment [facility] Comment on above: Result: Not Observed Laboratory - Chemistry and C hemistry - challengeOrdered By: Andreas Oliva on 02-15-2022 ALP [Catalytic activity/Vol] 52 U/L 45-117 [facility] ALT [Catalytic activity/Vol] 92 U/L 13-56 [facility] CO2 [Moles/Vol] 24.0 mmol/L 21.0-32.0 [facility] Urea nitrogen/Creatinine [Mass ratio] 19.9 mg/mg 10-20 [facility] Laboratory - CoagulationOrde red By: Andreas Oliva on 02-15-2022 PT Coag (PPP) [Time] 13.7 s 11.7-14.9 [facility] Laboratory - Hematology and Cell countsOrdered By: Andreas Oliva on 02-15-2022 Erythrocyte distribution width (RBC) [Entitic vol] 43.8 fL 35.1-43.9 [facility] Erythrocyte distribution width (RBC) [Ratio] 12.9 % 11.6-14.6 [facility] Immature granulocytes/100 WBC (Bld) 0.400 % 0.0-0.9 [facility] Comment on above: IG% - Immature Granu locytes (promyelocytes, myelocytes and metamyelocytes) > 1% indicates that a LEFT SHIFT is Present. MCH (RBC) [Entitic mass] 29.7 pg 27.0-32.0 [facility] Nucleated RBC/100 WBC (Bld) [Ratio] 0 % 0-5 [facility] MCHC Auto (RBC) [Mass/Vol]Or dered By: Andreas Oliva on 02-15-2022 MCHC (RBC) [Mass/Vol] 32.5 g/dL 32-36 [facility] No Panel InformationOrdered By: Andreas Oliva on 02-15-2022 Addendum Document Comment . [facility] Comment on above: Protein electrophore sis scan will follow via computer,mail, or refrigeration plant operator delivery. Centromere B Antibody <0.2 AI 0.0-0.9 [facility] Ceruloplasmin 26.2 mg/dL 19.0-39.0 [facility] Endomysial IgA Antibody Negative Negative [facility] Estimated GFR (MDRD) Amer 130 mL/min >60 [facility] Comment on above: GFR Calc Estimated GFR (MDRD) Non-Af Amer 107 mL/min >60 [facility] Comment on above: Non- GFR Calc Haptoglobin 219 mg/dL 33-278 [facility] Comment on above: Performed at: [address] [id number] Director: Neeraj Marte PhD, Phone: [phone] at: [facility] [id number] Director: Harsh Harris MD, Phone: [phone] Hepatitis A IgM Antibody Negative Negative [facility] Hepatitis B Core IgM Antibody Negative Negative [facility] Hepatitis C Antibody (EIA) 0.1 s/co ratio 0.0-0.9 [facility] Hepatitis C Antibody Comment Comment . [facility] Comment on above: NegativeNot infected with HCV, unless recent infection issuspected or other evidence exists to indicate HCVinfection. Immunoglobulin E 18 IU/mL 6-495 [facility] Miscellaneous Test See comment [facility] Comment on above: TEST RESULT LIMITSIB D Expanded Panel Radha 23 units 0-50 Negative <45 Equivocal 45 - 50 Positive >50 ACCA 18 units 0-90 Negative <80 Equivocal 80 - 90 Positive >90 ALCA 53 units 0-60 Negative <55 Equivocal 55 - 60 Positive >60 AMCA 151 High units 0-100 Negative < 90 Equivocal 90 - 100 Positive >100 This test was developed and its performance characteristics determined by [facility]. It has not been cleared or approved by the Food and Drug Administration. The FDA has determined that such clearance or approval is not necessary.Atypical pANCA Negative Negative Comments Abnormal Suggestive of Crohn's Disease. Pattern is not conclusive for disease behavior risk stratification. TESTING PERFORMED AT [facility]. ORIGINAL REPORT ON FILE IN LAB CONTAINS ADDITIONAL TEST SITE INFORMATION. DATA CENTER CONSULTANT Antibody <0.2 AI 0.0-0.9 [facility] No Panel InformationOrdered By: Zeus Miller on 02-15-2022 Follicle Stimulating Hormone 3.8 mIU/mL [facility] Comment on above: NORMAL REFERENCE RAN GES FEMALE FOLLICULAR 2.3 - 12.6 mIU/mL MID-CYCLE PEAK 5.2 - 17.5 mIU/mL LUTEAL 1.7 - 12.9 mIU/mL POST-MENOPAUSAL ON MHT 5.9 - 72.8 mIU/mL NOT ON MHT 12.7 - 132.2 mlU/mL MALE 0.7 - 10.8 mIU/mL Platelets bldOrdered By: Mello Oliva on 02-15-2022 Platelets (Bld) [#/Vol] 367 10*3/uL 150-450 [facility] Serum DNA double strand anti body assay (units/volume)Ordered By: Andreas Oliva on 02-15-2022 DNA double strand Ab Qn (S) 1 [IU]/mL 0-9 [facility] Comment on above: Negative <5 Equivoca l 5 - 9 Positive >9 Serum Gabriella-1 antibody assay (u nits/volume)Ordered By: Andreas Oliva on 02-15-2022 Gabriella-1 extractable nuclear Ab Qn (S) <0.2 AI 0.0-0.9 [facility] Serum Scl-70 extractable nuc lear antibody assay (units/volume)Ordered By: Andreas Oliva on 02-15-2022 SCL-70 extractable nuclear Ab Qn (S) <0.2 AI 0.0-0.9 [facility] Serum Dykes extractable nucl ear antibody detectionOrdered By: Andreas Oliva on 02-15-2022 Dykes extractable nuclear Ab Ql (S) <0.2 AI 0.0-0.9 [facility] Serum [id number] measu rement by electrophoresisOrdered By: Andreas Oliva on 02-15-2022 Alpha 1 globulin Elph [Mass/Vol] 0.2 g/dL 0.0-0.4 [facility] Alpha 1 globulin Elph [Mass/Vol] 0.9 g/dL 0.4-1.0 [facility] Serum classic neutrophil cyt oplasmic antibody assay (units/volume)Ordered By: Andreas Oliva on 02-15-2022 Neutrophil cytoplasmic Ab.classic Qn (S) <1:20 titer Neg:<1:20 [facility] Serum globulin measurement ( mass/volume)Ordered By: Andreas Oliva on 02-15-2022 Globulin (S) [Mass/Vol] 3.4 g/dL 2.2-3.9 [facility] Serum mitochondria antibody detectionOrdered By: Andreas Oliva on 02-15-2022 Mitochondria Ab Ql (S) <20.0 Units 0.0-20.0 [facility] Comment on above: Negative 0.0 - 20.0 Equivocal 20.1 - 24.9 Positive >24.9Mitochondrial (M2) Antibodies are found in 90-96% ofpatients with primary biliary cirrhosis.Performed at: [facility] [employer] [id number] Director: Neeraj Marte PhD, Phone: [phone] Serum or plasma C reactive p rotein measurement (mass/volume)Ordered By: Andreas Oliva on 02-15-2022 CRP [Mass/Vol] 4.50 mg/L 0.0-3.0 [facility] Comment on above: C-Reactive Protein ( CRP) provides useful information for thediagnosis, therapy and monitoring of inflammatory processesand associated diseases. For the evaluation of Relative Riskfor Cardiovascular Disease, a High Sensitivity CRP (HSCRP)should be ordered. Serum or plasma IgA measurem ent (mass/volume)Ordered By: Andreas Oliva on 02-15-2022 IgA [Mass/Vol] 163 mg/dL 87-352 [facility] Serum or plasma IgG measurem ent (mass/volume)Ordered By: [facility] on 02-15-2022 IgG [Mass/Vol] 972 mg/dL 586-1602 [facility] Serum or plasma IgM measurem ent (mass/volume)Ordered By: Andreasneal Oliva on 02-15-2022 IgM [Mass/Vol] 115 mg/dL 26-217 [facility] Serum or plasma actin IgG an tibody assay (units/volume)Ordered By: Andreas Oliva on 02-15-2022 Actin IgG Qn 9 Units 0-19 [facility] Comment on above: Negative 0 - 19 Weak positive 20 - 30 Moderate to strong positive >30 Actin Antibodies are found in 52-85% of patients with autoimmune hepatitis or chronic active hepatitis and in 22% of patients with primary biliary cirrhosis. Serum or plasma albumin cherelle urement (mass/volume)Ordered By: Andreas Oliva on 02-15-2022 Albumin [Mass/Vol] 3.5 g/dL 3.2-5.0 [facility] Serum or plasma albumin/glob ulin mass ratioOrdered By: Andreas Oliva 02-15-2022 Albumin/Globulin [Mass ratio] 0.9 {ratio} 0.9-2.4 [facility] Serum or plasma mesog-2-pten protein tumor marker measurement (units/volume)Ordered By: Andreas Oliva on 02-15-2022 AFP.tumor marker Qn < 1.8 ng/mL 0.0-4.7 [facility] Comment on above: [employer] El ectrochemiluminescence Immunoassay(ECLIA)Values obtained with different assay methods or kits cannotbe used interchangeably. Results cannot be interpreted asabsolute evidence of the presence or absence of malignantdisease.This test is not interpretable in females. Serum or plasma angiotensin converting enzyme measurement (enzymatic activity/volume)Ordered By: Andreas Oliva on 02-15-2022 Angiotensin converting enzyme [Catalytic activity/Vol] 31 U/L 1482 [facility] Serum or plasma beta globuli n measurement by electrophoresis (mass/volume)Ordered By: Andreas Oliva on 02-15-2022 Beta globulin Elph [Mass/Vol] 1.2 g/dL 0.7-1.3 [facility] Serum or plasma calcium cherelle urement (mass/volume)Ordered By: Andreas Oliva on 02-15-2022 Calcium [Mass/Vol] 9.1 mg/dL 8.5-10.1 [facility] Serum or plasma creatinine m easurement (mass/volume)Ordered By: Andreas Oliva on 02-15-2022 Creatinine [Mass/Vol] 0.70 mg/dL 0.55-1.02 [facility] Comment on above: The validity of the calculated GFR & GFRAA in patients over 70 years has not been determined. Clinical correlation is essential. Serum or plasma estradiol (E 2) measurement (mass/volume)Ordered By: Zeus Miller on 02-15-2022 E2 [Mass/Vol] 42.6 pg/mL [facility] Comment on above: NORMAL REFERENCE RAN GES FEMALE FOLLICULAR 21.4 - 164.8 pg/mL MID-CYCLE PEAK 49.9 - 367.2 pg/mL LUTEAL 40.2 - 259.0 pg/mL POST-MENOPAUSAL ON MHT <11.0 - 462.1 pg/mL NOT ON MHT <11.0 - 58.3 pg/mL MALE <11.0 - 52.5 pg/mL NOTE:[employer] HAS CONFIRMED THE DRUG FULVETRANT (FASLODEX) MAY CAUSE FALSELY ELEVATED ESTRADIOL RESULTS WHEN USING THIS TEST METHOD. IF PATIENT IS TAKING FULVESTRANT AN ALTERNATIVE METHOD SHOULD BE USED TO DETERMINE ESTRADIOL CONCENTRATION. Serum or plasma ferritin burton surement (mass/volume)Ordered By: Andreas Oliva on 02-15-2022 Ferritin [Mass/Vol] 138 ng/mL [facility] Serum or plasma gamma globul in measurement by electrophoresis (mass/volume)Ordered By: Andreas Oliva on 02-15-2022 Gamma globulin Elph [Mass/Vol] 1.1 g/dL 0.4-1.8 [facility] Serum or plasma hepatitis B virus surface antigen detection by immunoassayOrdered By: Andreas Oliva on 02-15-2022 HBV surface Ag IA Ql Negative Negative [facility] Serum or plasma immunoelectr ophoresis interpretation (nominal result)Ordered By: Andreas Oliva on 02-15-2022 Interpretation IEP [Interp] Comment . [facility] Comment on above: No monoclonality det ected. Serum or plasma prolactin me asurement (mass/volume)Ordered By: Zeus Miller on 02-15-2022 Prolactin [Mass/Vol] 9.0 ng/mL [facility] Comment on above: NORMAL REFERENCE RAN GES FEMALE NON- 2.2 - 30.3 ng/mL 8.1 - 347.6 ng/mL POST-MENOPAUSAL 0.7 - 31.5 ng/mL MALE 2.5 - 17.4 ng/mL Serum or plasma urea nitroge n measurement (mass/volume)Ordered By: Andreas Oliva on 02-15-2022 Urea nitrogen [Mass/Vol] 14 mg/dL 7-18 [facility] Serum perinuclear neutrophil cytoplasmic antibody titer by immunofluorescenceOrdered By: Andreas Oliva on 02-15-2022 Neutrophil cytoplasmic Ab.perinuclear IF (S) [Titer] <1:20 titer Neg:<1:20 [facility] Comment on above: The presence of posi tive fluorescence exhibiting P-ANCA orC-ANCA patterns alone is not specific for the diagnosis ofWegener's Granulomatosis (WG) or microscopic polyangiitis.Decisions about treatment should not be based solely onANCA IFA results. The [employer] Consensusrecommends follow up testing of positive sera with both AK-3 and MPO-ANCA enzyme immunoassays. As many as 5% serumsamples are positive only by EIA. Ref. AM J Clin [id number];111:507-513. Serum tissue transglutaminas e IgA antibody assay (units/volume)Ordered By: Andreas Oliva on 02-15-2022 tTG IgA Qn (S) <2 U/mL 0-3 [facility] Comment on above: Negative 0 - 3 Weak Positive 4 - 10 Positive >10 Tissue Transglutaminase (tTG) has been identified as the endomysial antigen. Studies have demonstr- ated that endomysial IgA antibodies have over 99% specificity for gluten sensitive enteropathy. Thin prep Papanicolaou smear with manual screeningOrdered By: Andreas Oliva on 02-15-2022 Thin prep Papanicolaou smear with manual screening 33 U/L 15-37 [facility] Thin prep Papanicolaou smear with manual screening 4 5-15 [facility] Thin prep Papanicolaou smear with manual screening 1.1 0.7-1.7 [facility] Thin prep Papanicolaou smear with manual screening 128 ug/dL 80-158 [facility] Comment on above: Detection Limit = 5 Total protein bloodOrdered B y: Andreas Oliva on 02-15-2022 Protein [Mass/Vol] 7.0 g/dL 6.0-8.5 [facility] Whole blood hemoglobin A1c/t otal hemoglobin ratio (mass fraction)Ordered By: Andreas Oliva on 02-15-2022 HbA1c (Bld) [Mass fraction] 5.9 % 3.8-5.6 [facility] Comment on above: Normal < 5.7 % Predi abetic 5.7 - 6.4 % Diabetic >or= 6.5 % Please note range changes. Laboratory - Chemistry and C hemistry - challengeOrdered By: DANIEL BETANCUR on 01-31-2022 Free T4 [Mass/Vol] 1.04 ng/dL 0.76-1.46 [facility] No Panel InformationOrdered By: DANIEL BETANCUR on 01-31-2022 Thyroid Stimulating Hormone (TSH) 4.77 uIU/mL 0.358-3.74 [facility] Ova and parasitesOrdered By: Dr. Angelo on 01-27-2022 Ova and parasites identified LM Nom (Unsp spec) [facility] Absolute lymphocyte countOrd ered By: Dr. Angelo on 01-24-2022 Lymphocytes Auto (Unsp spec) [#/Vol] 2.71 10*3/uL 0.83-4.51 [facility] Basophil percentageOrdered B y: Dr. Angelo on 01-24-2022 Basophils/100 WBC (Bld) 0.6 % 0-1 [facility] Bilirubin [Mass/Vol] 0.50 mg/dL 0.20-1.00 [facility] Comment on above: For patients on eltr ombopag therapy, use of Dimension [place] TBIL is not recommended. Chloride [Moles/Vol] 109 mmol/L 98-107 [facility] Eosinophils/100 WBC (Bld) 2.9 % 0-5 [facility] Glucose [Mass/Vol] 114 mg/dL 74-106 [facility] Comment on above: Fasting Glucose resu lt from 100 to 125 mg/dL suggests IMPAIRED HOMEOSTASIS per A.D.A. criteria. Lactate [Moles/Vol] 0.8 mmol/L 0.4-2.0 [facility] Neutrophils (Bld) [#/Vol] 4.8 10*3/uL 2.0-7.7 [facility] Neutrophils/100 WBC (Bld) 56.1 % 47-70 [facility] Potassium [Moles/Vol] 3.8 mmol/L 3.5-5.1 [facility] Protein [Mass/Vol] 7.3 g/dL 6.4-8.2 [facility] Sodium [Moles/Vol] 137 mmol/L 136-145 [facility] WBC (Bld) [#/Vol] 8.6 10*3/uL 4.4-11.0 [facility] Basophil percentage 0-5 SEEN /hpf 0-5 [facility] Bilirubin Test strip Ql (U)O rdered By: Dr. Angelo on 01-24-2022 Bilirubin Ql (U) Negative Negative [facility] Blood erythrocytes count (nu mber/volume)Ordered By: Dr. Angelo on 01-24-2022 RBC (Bld) [#/Vol] 4.14 10*6/uL 4.2-5.4 [facility] Blood hemoglobin measurement (mass/volume)Ordered By: Dr. Angelo on 01-24-2022 Hemoglobin (Bld) [Mass/Vol] 12.4 g/dL 12.0-15.0 [facility] Blood lymphocytes/100 leukoc ytesOrdered By: Dr. Angelo on 01-24-2022 Lymphocytes/100 WBC (Bld) 31.5 % 19-41 [facility] Blood monocytes/100 leukocyt esOrdered By: Dr. Angelo on 01-24-2022 Monocytes/100 WBC (Bld) 8.6 % 0-10 [facility] Blood platelet mean volumeOr dered By: Dr. Angelo on 01-24-2022 Platelet mean volume (Bld) [Entitic vol] 9.0 fL 6.2-12.0 [facility] Determination of erythrocyte mean corpuscular volume (MCV)Ordered By: Dr. Angelo on 01-24-2022 MCV (RBC) [Entitic vol] 91.5 fL 81-99 [facility] Hematocrit Auto (Bld) [Volum e fraction]Ordered By: Dr. Angelo on 01-24-2022 Hematocrit (Bld) [Volume fraction] 37.9 % 37-47 [facility] Ketones Test strip Ql (U)Ord ered By: Dr. Angelo on 01-24-2022 Ketones Ql (U) 5 mg/dl Negative [facility] Laboratory - Chemistry and C hemistry - challengeOrdered By: Dr. Angelo on 01-24-2022 ALP [Catalytic activity/Vol] 57 U/L 45-117 [facility] ALT [Catalytic activity/Vol] 160 U/L 13-56 [facility] CO2 [Moles/Vol] 24.0 mmol/L 21.0-32.0 [facility] Globulin (S) [Mass/Vol] 3.7 g/dL 2.2-4.2 [facility] Lipase [Catalytic activity/Vol] 144 U/L 73-393 [facility] Urea nitrogen/Creatinine [Mass ratio] 18.6 mg/mg 10-20 [facility] HCG ( test) Ql (U) Negative [facility] Comment on above: Very dilute urine sp ecimens, as indicated by a low specificgravity, may not contain sales representative consultant levels of hCG. If is still suspected, a first morning urinespecimen should be collected 48 hours later and tested. Laboratory - Hematology and Cell countsOrdered By: Dr. Angelo on 01-24-2022 Erythrocyte distribution width (RBC) [Entitic vol] 44.2 fL 35.1-43.9 [facility] Erythrocyte distribution width (RBC) [Ratio] 13.2 % 11.6-14.6 [facility] Immature granulocytes/100 WBC (Bld) 0.300 % 0.0-0.9 [facility] Comment on above: IG% - Immature Granu locytes (promyelocytes, myelocytes and metamyelocytes) > 1% indicates that a LEFT SHIFT is Present. MCH (RBC) [Entitic mass] 30.0 pg 27.0-32.0 [facility] Nucleated RBC/100 WBC (Bld) [Ratio] 0 % 0-5 [facility] MCHC Auto (RBC) [Mass/Vol]Or dered By: Dr. Angelo on 01-24-2022 MCHC (RBC) [Mass/Vol] 32.7 g/dL 32-36 [facility] Mucus LM Ql (Urine sed)Order ed By: Dr. Angelo on 01-24-2022 Mucus Ql (Urine sed) 0 SEEN /hpf [facility] Nitrite Test strip Ql (U)Ord ered By: Dr. Angelo on 01-24-2022 Nitrite Ql (U) Negative Negative [facility] No Panel InformationOrdered By: Dr. Angelo on 01-24-2022 Estimated Creatinine Clearance Calc 97.24 ml/min [facility] Estimated GFR (MDRD) Amer 104 mL/min >60 [facility] Comment on above: GFR Calc Estimated GFR (MDRD) Non-Af Amer 86 mL/min >60 [facility] Comment on above: Non- GFR Calc Platelets bldOrdered By: Dr. Angelo on 01-24-2022 Platelets (Bld) [#/Vol] 328 10*3/uL 150-450 [facility] Protein Test strip Ql (U)Ord ered By: Dr. Angelo on 01-24-2022 Protein Ql (U) 30 mg/dl Negative [facility] Serum or plasma albumin cherelle urement (mass/volume)Ordered By: Dr. Angelo on 01-24-2022 Albumin [Mass/Vol] 3.6 g/dL 3.2-5.0 [facility] Serum or plasma albumin/glob ulin mass ratioOrdered By: Dr. Angelo on 01-24-2022 Albumin/Globulin [Mass ratio] 1.0 {ratio} 0.9-2.4 [facility] Serum or plasma calcium cherelle urement (mass/volume)Ordered By: Dr. Angelo on 01-24-2022 Calcium [Mass/Vol] 9.0 mg/dL 8.5-10.1 [facility] Serum or plasma creatinine m easurement (mass/volume)Ordered By: Dr. Angelo on 01-24-2022 Creatinine [Mass/Vol] 0.86 mg/dL 0.55-1.02 [facility] Comment on above: The validity of the calculated GFR & GFRAA in patients over 70 years has not been determined. Clinical correlation is essential. Serum or plasma urea nitroge n measurement (mass/volume)Ordered By: Dr. Angelo on 01-24-2022 Urea nitrogen [Mass/Vol] 16 mg/dL 7-18 [facility] Squamous epithelial cells de tection in urine sediment by light microscopyOrdered By: Dr. Angelo on 01-24-2022 Epithelial cells.squamous LM Ql (Urine sed) 0-5 SEEN /hpf 5-10 [facility] Thin prep Papanicolaou smear with manual screeningOrdered By: Dr. Angelo on 01-24-2022 Thin prep Papanicolaou smear with manual screening 63 U/L 15-37 [facility] Thin prep Papanicolaou smear with manual screening 4 5-15 [facility] Urine blood detectionOrdered By: Dr. Angelo on 01-24-2022 RBC Ql (U) 10 /ul Negative [facility] RBC Ql (U) 0-5 SEEN /hpf 0-5 [facility] Urine clarityOrdered By: Dr. Angelo on 01-24-2022 Clarity (U) Sl. Cloudy Clear [facility] Urine color determinationOrd ered By: Dr. Angelo on 01-24-2022 Color (U) Yellow Yellow [facility] Urine glucose detectionOrder ed By: Dr. Angelo on 01-24-2022 Glucose Ql (U) Normal mg/dl Normal [facility] Urine leukocyte esterase det ection by dipstickOrdered By: Dr. Angelo on 01-24-2022 Leukocyte esterase Test strip Ql (U) 25 /ul Negative [facility] Urine pHOrdered By: Dr. Rosa foster on 01-24-2022 pH (U) 5.0 [pH] 5.0 - 8.0 [facility] Urine sediment bacteria coun t by microscopy (number/high power field)Ordered By: Dr. Angelo on 01-24-2022 Bacteria LM.HPF (Urine sed) [#/Area] 1 /[HPF] None Seen [facility] Urine specific gravity measu rementOrdered By: Dr. Angelo on 01-24-2022 Specific gravity (U) [Rel density] 1.025 1.002-1.030 [facility] Urobilinogen Auto test strip Ql (U)Ordered By: Dr. Angelo on 01-24-2022 Urobilinogen Ql (U) Normal mg/dl Normal [facility] Absolute lymphocyte countOrd ered By: Dr. Pace on 01-15-2022 Lymphocytes Auto (Unsp spec) [#/Vol] 2.40 10*3/uL 0.83-4.51 [facility] Basophil percentageOrdered B y: Dr. Pace on 01-15-2022 Basophils/100 WBC (Bld) 0.6 % 0-1 [facility] Chloride [Moles/Vol] 108 mmol/L 98-107 [facility] Eosinophils/100 WBC (Bld) 2.7 % 0-5 [facility] Glucose [Mass/Vol] 118 mg/dL 74-106 [facility] Comment on above: Fasting Glucose resu lt from 100 to 125 mg/dL suggests IMPAIRED HOMEOSTASIS per A.D.A. criteria. Neutrophils (Bld) [#/Vol] 4.7 10*3/uL 2.0-7.7 [facility] Neutrophils/100 WBC (Bld) 58.8 % 47-70 [facility] Potassium [Moles/Vol] 4.4 mmol/L 3.5-5.1 [facility] Sodium [Moles/Vol] 138 mmol/L 136-145 [facility] WBC (Bld) [#/Vol] 8.1 10*3/uL 4.4-11.0 [facility] Blood erythrocytes count (nu mber/volume)Ordered By: Dr. Pace on 01-15-2022 RBC (Bld) [#/Vol] 4.29 10*6/uL 4.2-5.4 [facility] Blood hemoglobin measurement (mass/volume)Ordered By: Dr. Pace on 01-15-2022 Hemoglobin (Bld) [Mass/Vol] 13.0 g/dL 12.0-15.0 [facility] Blood lymphocytes/100 leukoc ytesOrdered By: Dr. Pace on 01-15-2022 Lymphocytes/100 WBC (Bld) 29.7 % 19-41 [facility] Blood monocytes/100 leukocyt esOrdered By: Dr. Pace on 01-15-2022 Monocytes/100 WBC (Bld) 7.8 % 0-10 [facility] Blood platelet mean volumeOr dered By: Dr. Pace on 01-15-2022 Platelet mean volume (Bld) [Entitic vol] 9.1 fL 6.2-12.0 [facility] Determination of erythrocyte mean corpuscular volume (MCV)Ordered By: Dr. Pace on 01-15-2022 MCV (RBC) [Entitic vol] 92.5 fL 81-99 [facility] Hematocrit Auto (Bld) [Volum e fraction]Ordered By: Dr. Pace on 01-15-2022 Hematocrit (Bld) [Volume fraction] 39.7 % 37-47 [facility] Laboratory - Chemistry and C hemistry - challengeOrdered By: Dr. Pace on 01-15-2022 CO2 [Moles/Vol] 27.0 mmol/L 21.0-32.0 [facility] Urea nitrogen/Creatinine [Mass ratio] 20.9 mg/mg 10-20 [facility] Laboratory - Hematology and Cell countsOrdered By: Dr. Pace on 01-15-2022 Erythrocyte distribution width (RBC) [Entitic vol] 44.6 fL 35.1-43.9 [facility] Erythrocyte distribution width (RBC) [Ratio] 13.2 % 11.6-14.6 [facility] Immature granulocytes/100 WBC (Bld) 0.400 % 0.0-0.9 [facility] Comment on above: IG% - Immature Granu locytes (promyelocytes, myelocytes and metamyelocytes) > 1% indicates that a LEFT SHIFT is Present. MCH (RBC) [Entitic mass] 30.3 pg 27.0-32.0 [facility] Nucleated RBC/100 WBC (Bld) [Ratio] 0 % 0-5 [facility] MCHC Auto (RBC) [Mass/Vol]Or dered By: Dr. Pace on 01-15-2022 MCHC (RBC) [Mass/Vol] 32.7 g/dL 32-36 [facility] No Panel InformationOrdered By: Dr. Pace on 01-15-2022 D-Dimer Quantitative (PE/DVT) 0.36 FEU/ug/m 0.27-0.49 [facility] Comment on above: NORMAL D-Dimer level (<0.50) indicates no DVT or PE. Estimated Creatinine Clearance Calc 134.89 ml/min [facility] Estimated GFR (MDRD) Amer 150 mL/min >60 [facility] Comment on above: GFR Calc Estimated GFR (MDRD) Non-Af Amer 124 mL/min >60 [facility] Comment on above: Non- GFR Calc Troponin I High Sensitivity 5 pg/mL 3.0-54.0 [facility] Comment on above: Please Note: New Renetta t Units and Gender Specific Reference Ranges. For more information see Policy Stat Procedure [place] High Sensitivity Troponin (TNIH) and attachments. Platelets bldOrdered By: Dr. Pace on 01-15-2022 Platelets (Bld) [#/Vol] 305 10*3/uL 150-450 [facility] Serum or plasma calcium cherelle urement (mass/volume)Ordered By: Dr. Pace on 01-15-2022 Calcium [Mass/Vol] 9.7 mg/dL 8.5-10.1 [facility] Serum or plasma creatinine m easurement (mass/volume)Ordered By: Dr. Pace on 01-15-2022 Creatinine [Mass/Vol] 0.62 mg/dL 0.55-1.02 [facility] Comment on above: The validity of the calculated GFR & GFRAA in patients over 70 years has not been determined. Clinical correlation is essential. Serum or plasma urea nitroge n measurement (mass/volume)Ordered By: Dr. Pace on 01-15-2022 Urea nitrogen [Mass/Vol] 13 mg/dL 7-18 [facility] Thin prep Papanicolaou smear with manual screeningOrdered By: Dr. Pace on 01-15-2022 Thin prep Papanicolaou smear with manual screening 3 5-15 [facility] Basophil percentageOrdered B y: Karina Guerra on 12-14-2021 Bilirubin [Mass/Vol] 0.40 mg/dL 0.20-1.00 [facility] Comment on above: For patients on eltr ombopag therapy, use of Dimension [place] TBIL is not recommended. Chloride [Moles/Vol] 107 mmol/L 98-107 [facility] Glucose [Mass/Vol] 122 mg/dL 74-106 [facility] Comment on above: Fasting Glucose resu lt from 100 to 125 mg/dL suggests IMPAIRED HOMEOSTASIS per A.D.A. criteria. Potassium [Moles/Vol] 4.4 mmol/L 3.5-5.1 [facility] Protein [Mass/Vol] 6.9 g/dL 6.4-8.2 [facility] Sodium [Moles/Vol] 137 mmol/L 136-145 [facility] Laboratory - Chemistry and C hemistry - challengeOrdered By: Karina Guerra on 12-14-2021 ALP [Catalytic activity/Vol] 53 U/L 45-117 [facility] ALT [Catalytic activity/Vol] 136 U/L 13-56 [facility] CO2 [Moles/Vol] 27.0 mmol/L 21.0-32.0 [facility] Free T4 [Mass/Vol] 0.96 ng/dL 0.76-1.46 [facility] Globulin (S) [Mass/Vol] 3.6 g/dL 2.2-4.2 [facility] Urea nitrogen/Creatinine [Mass ratio] 20.8 mg/mg 10-20 [facility] No Panel InformationOrdered By: Karina Guerra on 12-14-2021 Estimated GFR (MDRD) Amer 109 mL/min >60 [facility] Comment on above: GFR Calc Estimated GFR (MDRD) Non-Af Amer 90 mL/min >60 [facility] Comment on above: Non- GFR Calc [place] Level 1.10 mmol/L 0.60-1.20 [facility] Thyroid Stimulating Hormone (TSH) 6.04 uIU/mL 0.358-3.74 [facility] Serum or plasma albumin cherelle urement (mass/volume)Ordered By: Karina Guerra on 12-14-2021 Albumin [Mass/Vol] 3.3 g/dL 3.2-5.0 [facility] Serum or plasma albumin/glob ulin mass ratioOrdered By: Karina Guerra on 12-14-2021 Albumin/Globulin [Mass ratio] 0.9 {ratio} 0.9-2.4 [facility] Serum or plasma calcium cherelle urement (mass/volume)Ordered By: Karina Guerra on 12-14-2021 Calcium [Mass/Vol] 8.8 mg/dL 8.5-10.1 [facility] Serum or plasma creatinine m easurement (mass/volume)Ordered By: Karina Guerra on 12-14-2021 Creatinine [Mass/Vol] 0.82 mg/dL 0.55-1.02 [facility] Comment on above: The validity of the calculated GFR & GFRAA in patients over 70 years has not been determined. Clinical correlation is essential. Serum or plasma urea nitroge n measurement (mass/volume)Ordered By: Karina Guerra on 12-14-2021 Urea nitrogen [Mass/Vol] 17 mg/dL 7-18 [facility] Thin prep Papanicolaou smear with manual screeningOrdered By: Karina Guerra on 12-14-2021 Thin prep Papanicolaou smear with manual screening 59 U/L 15-37 [facility] Thin prep Papanicolaou smear with manual screening 3 5-15 [facility] Absolute lymphocyte counton 11-30-2021 Lymphocytes Auto (Unsp spec) [#/Vol] 2.45 10*3/uL 0.83-4.51 [facility] Basophil percentageon 2021 Basophil percentage 3.3 mg/dL 2.5-4.9 [facility] Basophils/100 WBC (Bld) 0.9 % 0-1 [facility] Bilirubin [Mass/Vol] 0.60 mg/dL 0.20-1.00 [facility] Comment on above: For patients on eltr ombopag therapy, use of Dimension [place] TBIL is not recommended. Chloride [Moles/Vol] 108 mmol/L 98-107 [facility] Cholesterol [Mass/Vol] 190 mg/dL <200 [facility] Comment on above: <200 mg/dL Desirable 200-240 mg/dL Borderline >240 mg/dL High Risk Eosinophils/100 WBC (Bld) 2.9 % 0-5 [facility] Glucose [Mass/Vol] 143 mg/dL 74-106 [facility] Comment on above: Fasting Glucose resu lt greater than or equal to 126 mg/dL suggests DIABETES MELLITUS per A.D.A. criteria. Neutrophils (Bld) [#/Vol] 3.4 10*3/uL 2.0-7.7 [facility] Neutrophils/100 WBC (Bld) 51.3 % 47-70 [facility] Potassium [Moles/Vol] 4.9 mmol/L 3.5-5.1 [facility] Protein [Mass/Vol] 7.4 g/dL 6.4-8.2 [facility] Sodium [Moles/Vol] 140 mmol/L 136-145 [facility] Triglyceride [Mass/Vol] 208 mg/dL <199 [facility] Comment on above: The drugs N-Acetylcy steine and Metamizole may falsely depress this assay.Serum Triglycerides Reference Interval Normal <150 mg/dL Borderline high 150 - 199 mg/dL High 200 - 499 mg/dL Very High > or = 500 mg/dL WBC (Bld) [#/Vol] 6.7 10*3/uL 4.4-11.0 [facility] Blood erythrocytes count (nu mber/volume)on 11-30-2021 RBC (Bld) [#/Vol] 4.08 10*6/uL 4.2-5.4 [facility] Blood hemoglobin measurement (mass/volume)on 11-30-2021 Hemoglobin (Bld) [Mass/Vol] 12.2 g/dL 12.0-15.0 [facility] Blood lymphocytes/100 leukoc yteson 11-30-2021 Lymphocytes/100 WBC (Bld) 36.8 % 19-41 [facility] Blood monocytes/100 leukocyt eson 11-30-2021 Monocytes/100 WBC (Bld) 7.8 % 0-10 [facility] Blood platelet mean volumeon 11-30-2021 Platelet mean volume (Bld) [Entitic vol] 8.9 fL 6.2-12.0 [facility] Determination of erythrocyte mean corpuscular volume (MCV)on 11-30-2021 MCV (RBC) [Entitic vol] 91.9 fL 81-99 [facility] Hematocrit Auto (Bld) [Volum e fraction]on 11-30-2021 Hematocrit (Bld) [Volume fraction] 37.5 % 37-47 [facility] Iron measurement (mass/mass) on 11-30-2021 Iron (Unsp spec) [Mass/Mass] 72 ug/dL 50-170 [facility] Laboratory - Chemistry and C hemistry - challengeon 11-30-2021 ALP [Catalytic activity/Vol] 59 U/L 45-117 [facility] ALT [Catalytic activity/Vol] 134 U/L 13-56 [facility] CO2 [Moles/Vol] 26.0 mmol/L 21.0-32.0 [facility] Globulin (S) [Mass/Vol] 4.0 g/dL 2.2-4.2 [facility] Magnesium [Mass/Vol] 2.1 mg/dL 1.6-2.6 [facility] T4 [Mass/Vol] 9.3 ug/dL 4.8-13.9 [facility] Urea nitrogen/Creatinine [Mass ratio] 21.4 mg/mg 10-20 [facility] Laboratory - Hematology and Cell countson 11-30-2021 Erythrocyte distribution width (RBC) [Entitic vol] 46.2 fL 35.1-43.9 [facility] Erythrocyte distribution width (RBC) [Ratio] 13.6 % 11.6-14.6 [facility] Immature granulocytes/100 WBC (Bld) 0.300 % 0.0-0.9 [facility] Comment on above: IG% - Immature Granu locytes (promyelocytes, myelocytes and metamyelocytes) > 1% indicates that a LEFT SHIFT is Present. MCH (RBC) [Entitic mass] 29.9 pg 27.0-32.0 [facility] Nucleated RBC/100 WBC (Bld) [Ratio] 0 % 0-5 [facility] MCHC Auto (RBC) [Mass/Vol]on 11-30-2021 MCHC (RBC) [Mass/Vol] 32.5 g/dL 32-36 [facility] No Panel Informationon 11-30 Estimated GFR (MDRD) Amer 106 mL/min >60 [facility] Comment on above: GFR Calc Estimated GFR (MDRD) Non-Af Amer 88 mL/min >60 [facility] Comment on above: Non- GFR Calc Miscellaneous Test See comment [facility] Comment on above: TEST RESULT LIMITSSe lenium, Serum/Plasma 150 ug/L 93 - 198A: This test was developed and its performance characteristics determined by [employer]. It has not been cleared or approved by the Food and DrugAdministration. TESTING PERFORMED AT [facility]. ORIGINAL REPORT ON FILE IN LAB CONTAINS ADDITIONAL TEST SITE INFORMATION. Thyroid Stimulating Hormone (TSH) 4.91 uIU/mL 0.358-3.74 [facility] Total Iron Binding Capacity 369 ug/dL 250-450 [facility] Total Triiodothyronine 0.99 ng/mL 0.6-1.81 [facility] Platelets bldon 11-30-2021 Platelets (Bld) [#/Vol] 318 10*3/uL 150-450 [facility] Serum or plasma albumin cherelle urement (mass/volume)on 11-30-2021 Albumin [Mass/Vol] 3.4 g/dL 3.2-5.0 [facility] Serum or plasma albumin/glob ulin mass ratioon 11-30-2021 Albumin/Globulin [Mass ratio] 0.8 {ratio} 0.9-2.4 [facility] Serum or plasma calcium cherelle urement (mass/volume)on 11-30-2021 Calcium [Mass/Vol] 9.1 mg/dL 8.5-10.1 [facility] Serum or plasma cholesterol in HDL measurement (mass/volume)on 11-30-2021 Cholesterol in HDL [Mass/Vol] 29 mg/dL >40 [facility] Comment on above: The drugs N-Acetylcy steine and Metamizole may falsely depress this assay. Reference Range HDL <40 mg/dL Low HDL Cholesterol HDL >or= 60 mg/dL High HDL Cholesterol Serum or plasma cholesterol in VLDL measurement (mass/volume)on 11-30-2021 Cholesterol in VLDL [Mass/Vol] 42 mg/dL 5-40 [facility] Serum or plasma creatinine m easurement (mass/volume)on 11-30-2021 Creatinine [Mass/Vol] 0.84 mg/dL 0.55-1.02 [facility] Comment on above: The validity of the calculated GFR & GFRAA in patients over 70 years has not been determined. Clinical correlation is essential. Serum or plasma ferritin burton surement (mass/volume)on 11-30-2021 Ferritin [Mass/Vol] 237 ng/mL 8-252 [facility] Serum or plasma low density lipoprotein (LDL) cholesterol measurement (mass/volume)on 11-30-2021 Cholesterol in LDL [Mass/Vol] 119 mg/dL 0-130 [facility] Serum or plasma urea nitroge n measurement (mass/volume)on 11-30-2021 Urea nitrogen [Mass/Vol] 18 mg/dL 7-18 [facility] Serum or plasma zinc measure ment (mass/volume)on 11-30-2021 Zinc [Mass/Vol] 80 ug/dL 44-115 [facility] Comment on above: Detection Limit = 5P erformed at: [facility] [address] [id number] Director: Harsh Harris MD, Phone: [phone] Thin prep Papanicolaou smear with manual screeningon 11-30-2021 Thin prep Papanicolaou smear with manual screening 49 U/L 15-37 [facility] Thin prep Papanicolaou smear with manual screening 6 5-15 [facility] Thin prep Papanicolaou smear with manual screening 117 ug/dL 80-158 [facility] Comment on above: Detection Limit = 5 Absolute lymphocyte counton 09-27-2021 Lymphocytes Auto (Unsp spec) [#/Vol] 2.31 10*3/uL 0.83-4.51 [facility] Work Phone: Basophil percentageon 2021 Basophils/100 WBC (Bld) 0.6 % 0-1 [facility] Work Phone: Bilirubin [Mass/Vol] 0.40 mg/dL 0.20-1.00 [facility] Work Phone: Comment on above: For patients on eltr ombopag therapy, use of Dimension [place] TBIL is not recommended. Eosinophils/100 WBC (Bld) 1.7 % 0-5 [facility] Work Phone: [phone] Neutrophils (Bld) [#/Vol] 3.5 10*3/uL 2.0-7.7 [facility] Work Phone: Neutrophils/100 WBC (Bld) 54.1 % 47-70 [facility] Work Phone: Protein [Mass/Vol] 7.1 g/dL 6.4-8.2 [facility] Work Phone: [phone] WBC (Bld) [#/Vol] 6.4 10*3/uL 4.4-11.0 [facility] Work Phone: Blood erythrocytes count (nu mber/volume)on 09-27-2021 RBC (Bld) [#/Vol] 4.16 10*6/uL 4.2-5.4 [facility] Work Phone: Blood hemoglobin measurement (mass/volume)on 09-27-2021 Hemoglobin (Bld) [Mass/Vol] 12.4 g/dL 12.0-15.0 [facility] Work Phone: [phone] Blood lymphocytes/100 leukoc yteson 09-27-2021 Lymphocytes/100 WBC (Bld) 36.1 % 19-41 [facility] Work Phone: [phone] Blood monocytes/100 leukocyt eson 09-27-2021 Monocytes/100 WBC (Bld) 7.2 % 0-10 [facility] Work Phone: Blood platelet mean volumeon 09-27-2021 Platelet mean volume (Bld) [Entitic vol] 9.6 fL 6.2-12.0 [facility] Work Phone: Determination of erythrocyte mean corpuscular volume (MCV)on 09-27-2021 MCV (RBC) [Entitic vol] 88.0 fL 81-99 [facility] Work Phone: Direct bilirubinon 2 Bilirubin.direct [Mass/Vol] 0.11 mg/dL 0.00-0.30 [facility] Work Phone: Hematocrit Auto (Bld) [Volum e fraction]on 09-27-2021 Hematocrit (Bld) [Volume fraction] 36.6 % 37-47 [facility] Work Phone: Iron measurement (mass/mass) on 09-27-2021 Iron (Unsp spec) [Mass/Mass] 84 ug/dL 50-170 [facility] Work Phone: Laboratory - Chemistry and C hemistry - challengeon 09-27-2021 ALP [Catalytic activity/Vol] 56 U/L 45-117 [facility] Work Phone: ALT [Catalytic activity/Vol] 149 U/L 13-56 [facility] Work Phone: Globulin (S) [Mass/Vol] 3.8 g/dL 2.2-4.2 [facility] Work Phone: [phone] Laboratory - Hematology and Cell countson 09-27-2021 Erythrocyte distribution width (RBC) [Entitic vol] 45.2 fL 35.1-43.9 [facility] Work Phone: Erythrocyte distribution width (RBC) [Ratio] 14.0 % 11.6-14.6 [facility] Work Phone: Immature granulocytes/100 WBC (Bld) 0.300 % 0.0-0.9 [facility] Work Phone: Comment on above: IG% - Immature Granu locytes (promyelocytes, myelocytes and metamyelocytes) > 1% indicates that a LEFT SHIFT is Present. MCH (RBC) [Entitic mass] 29.8 pg 27.0-32.0 [facility] Work Phone: Nucleated RBC/100 WBC (Bld) [Ratio] 0 % 0-5 [facility] Work Phone: MCHC Auto (RBC) [Mass/Vol]on 09-27-2021 MCHC (RBC) [Mass/Vol] 33.9 g/dL 32-36 [facility] Work Phone: No Panel Informationon 09-27 Total Iron Binding Capacity 352 ug/dL 250-450 [facility] Work Phone: Platelets bldon 09-27-2021 Platelets (Bld) [#/Vol] 336 10*3/uL 150-450 [facility] Work Phone: Serum or plasma albumin cherelle urement (mass/volume)on 09-27-2021 Albumin [Mass/Vol] 3.3 g/dL 3.2-5.0 [facility] Work Phone: Thin prep Papanicolaou smear with manual screeningon 09-27-2021 Thin prep Papanicolaou smear with manual screening 54 U/L 15-37 [facility] Work Phone: Absolute lymphocyte counton 09-10-2021 Lymphocytes Auto (Unsp spec) [#/Vol] 3.23 10*3/uL 0.83-4.51 [facility] Work Phone: Basophil percentageon 2021 Basophils/100 WBC (Bld) 0.4 % 0-1 [facility] Work Phone: Chloride [Moles/Vol] 111 mmol/L 98-107 [facility] Work Phone: Eosinophils/100 WBC (Bld) 2.3 % 0-5 [facility] Work Phone: [phone] Glucose [Mass/Vol] 119 mg/dL 74-106 [facility] Work Phone: Comment on above: Fasting Glucose resu lt from 100 to 125 mg/dL suggests IMPAIRED HOMEOSTASIS per A.D.A. criteria. Neutrophils (Bld) [#/Vol] 4.1 10*3/uL 2.0-7.7 [facility] Work Phone: Neutrophils/100 WBC (Bld) 50.0 % 47-70 [facility] Work Phone: Potassium [Moles/Vol] 3.9 mmol/L 3.5-5.1 [facility] Work Phone: Sodium [Moles/Vol] 145 mmol/L 136-145 [facility] Work Phone: WBC (Bld) [#/Vol] 8.2 10*3/uL 4.4-11.0 [facility] Work Phone: Beta hCG serum qualon 2021 Beta HCG ( test) Ql Negative [facility] Work Phone: [phone] Blood erythrocytes count (nu mber/volume)on 09-10-2021 RBC (Bld) [#/Vol] 4.39 10*6/uL 4.2-5.4 [facility] Work Phone: Blood hemoglobin measurement (mass/volume)on 09-10-2021 Hemoglobin (Bld) [Mass/Vol] 12.9 g/dL 12.0-15.0 [facility] Work Phone: Blood lymphocytes/100 leukoc yteson 09-10-2021 Lymphocytes/100 WBC (Bld) 39.3 % 19-41 [facility] Work Phone: [phone] Blood monocytes/100 leukocyt eson 09-10-2021 Monocytes/100 WBC (Bld) 7.6 % 0-10 [facility] Work Phone: Blood platelet mean volumeon 09-10-2021 Platelet mean volume (Bld) [Entitic vol] 9.4 fL 6.2-12.0 [facility] Work Phone: Determination of erythrocyte mean corpuscular volume (MCV)on 09-10-2021 MCV (RBC) [Entitic vol] 89.1 fL 81-99 [facility] Work Phone: Hematocrit Auto (Bld) [Volum e fraction]on 09-10-2021 Hematocrit (Bld) [Volume fraction] 39.1 % 37-47 [facility] Work Phone: Laboratory - Chemistry and C hemistry - challengeon 09-10-2021 CO2 [Moles/Vol] 28.0 mmol/L 21.0-32.0 [facility] Work Phone: Urea nitrogen/Creatinine [Mass ratio] 20.2 mg/mg 10-20 [facility] Work Phone: Laboratory - Drug toxicology on 09-10-2021 Amphetamines Ql (U) Negative <[facility]: Benzodiazepines Ql (U) Negative < 200 ng/mL [facility] Work Phone: Cannabinoids Screen Ql (U) Negative < 50 ng/mL [facility] Work Phone: Cocaine Ql (U) Negative < 300 ng/mL [facility] Work Phone: Opiates Ql (U) Negative < 300 ng/mL [facility] Work Phone: Laboratory - Hematology and Cell countson 09-10-2021 Erythrocyte distribution width (RBC) [Entitic vol] 44.7 fL 35.1-43.9 [facility] Work Phone: Erythrocyte distribution width (RBC) [Ratio] 13.8 % 11.6-14.6 [facility] Work Phone: Immature granulocytes/100 WBC (Bld) 0.400 % 0.0-0.9 [facility] Work Phone: Comment on above: IG% - Immature Granu locytes (promyelocytes, myelocytes and metamyelocytes) > 1% indicates that a LEFT SHIFT is Present. MCH (RBC) [Entitic mass] 29.4 pg 27.0-32.0 [facility] Work Phone: Nucleated RBC/100 WBC (Bld) [Ratio] 0 % 0-5 [facility] Work Phone: MCHC Auto (RBC) [Mass/Vol]on 09-10-2021 MCHC (RBC) [Mass/Vol] 33.0 g/dL 32-36 [facility] Work Phone: No Panel Informationon 09-10 Ethyl Alcohol Level < 3.0 mg/dL [facility] Work Phone: Comment on above: The serum:whole bloo d ethanol ratio is approximately 1.14and varies slightly with hematocrit. Medical Alcohol reference interval and critical value innon-tolerant individuals; 50 - 100 Impairment 100 Intoxication 100 - 250 Severe Poisoning 250 - 400 Deep/possible fatal coma Estimated Creatinine Clearance Calc 131.81 ml/min [facility] Work Phone: Estimated GFR (MDRD) Amer 144 mL/min >60 [facility] Work Phone: Comment on above: GFR Calc Estimated GFR (MDRD) Non-Af Amer 119 mL/min >60 [facility] Work Phone: Comment on above: Non- GFR Calc MDMA (Ecstasy) Screen Negative < 500 ng/mL [facility] Work Phone: Urine Barbiturates Screen Negative < 200 ng/mL [facility] Work Phone: Urine Drug Screen Comment [facility] Work Phone: Comment on above: CONFIRMATORY TESTING FOR ALL POSITIVE URINE DRUG SCREENRESULTS WILL ONLY BE SENT OUT UPON PHYSICIAN ORDER. VISTA Urine Drug Screen methods provide only preliminaryanalytical test results. A more specific alternate chemicalmethod must be used in order to obtain a confirmedanalytical result. Gas chromatography/mass spectrometery(GC/MS) is the preferred confirmatory method. Clinicalconsideration and professional judgement should be appliedto any drug of abuse test result, particularly whenpreliminary positive results are used. URINE TCA TESTING MUST BE ORDERED SEPARATELY. USE TESTMNEMONIC: [facility] Urine Methadone Screen Negative < 300 ng/mL [facility] Work Phone: Platelets bldon 09-10-2021 Platelets (Bld) [#/Vol] 311 10*3/uL 150-450 [facility] Work Phone: Serum or plasma calcium cherelle urement (mass/volume)on 09-10-2021 Calcium [Mass/Vol] 9.0 mg/dL 8.5-10.1 [facility] Work Phone: Serum or plasma creatinine m easurement (mass/volume)on 09-10-2021 Creatinine [Mass/Vol] 0.64 mg/dL 0.55-1.02 [facility] Work Phone: Comment on above: The validity of the calculated GFR & GFRAA in patients over 70 years has not been determined. Clinical correlation is essential. Serum or plasma urea nitroge n measurement (mass/volume)on 09-10-2021 Urea nitrogen [Mass/Vol] 13 mg/dL 7-18 [facility] Work Phone: Thin prep Papanicolaou smear with manual screeningon 09-10-2021 Thin prep Papanicolaou smear with manual screening 6 5-15 [facility] Work Phone: Urine phencyclidine (PCP) de tectionon 09-10-2021 Phencyclidine Ql (U) Negative < 25 ng/mL [facility] Work Phone: Absolute lymphocyte counton 09-03-2021 Lymphocytes Auto (Unsp spec) [#/Vol] 1.63 10*3/uL 0.83-4.51 [facility] Work Phone: Basophil percentageon 2021 Basophil percentage 0-5 SEEN /hpf 0-5 [facility] Work Phone: Basophils/100 WBC (Bld) 0.6 % 0-1 [facility] Work Phone: Bilirubin [Mass/Vol] 0.60 mg/dL 0.20-1.00 [facility] Work Phone: [phone] Comment on above: For patients on eltr ombopag therapy, use of Dimension [place] TBIL is not recommended. Chloride [Moles/Vol] 110 mmol/L 98-107 [facility] Work Phone: Eosinophils/100 WBC (Bld) 0.9 % 0-5 [facility] Work Phone: Glucose [Mass/Vol] 104 mg/dL 74-106 [facility] Work Phone: Comment on above: Fasting Glucose resu lt from 100 to 125 mg/dL suggests IMPAIRED HOMEOSTASIS per A.D.A. criteria. Neutrophils (Bld) [#/Vol] 4.3 10*3/uL 2.0-7.7 [facility] Work Phone: Neutrophils/100 WBC (Bld) 63.1 % 47-70 [facility] Work Phone: Potassium [Moles/Vol] 4.3 mmol/L 3.5-5.1 [facility] Work Phone: Protein [Mass/Vol] 7.2 g/dL 6.4-8.2 [facility] Work Phone: [phone] Sodium [Moles/Vol] 138 mmol/L 136-145 [facility] Work Phone: [phone] WBC (Bld) [#/Vol] 6.8 10*3/uL 4.4-11.0 [facility] Work Phone: Beta hCG serum qualon 2021 Beta HCG ( test) Ql Negative [facility] Work Phone: Bilirubin Test strip Ql (U)o n 09-03-2021 Bilirubin Ql (U) Negative Negative [facility] Work Phone: Blood erythrocytes count (nu mber/volume)on 09-03-2021 RBC (Bld) [#/Vol] 4.39 10*6/uL 4.2-5.4 [facility] Work Phone: Blood hemoglobin measurement (mass/volume)on 09-03-2021 Hemoglobin (Bld) [Mass/Vol] 12.7 g/dL 12.0-15.0 [facility] Work Phone: Blood lymphocytes/100 leukoc yteson 09-03-2021 Lymphocytes/100 WBC (Bld) 24.0 % 19-41 [facility] Work Phone: Blood monocytes/100 leukocyt eson 09-03-2021 Monocytes/100 WBC (Bld) 10.8 % 0-10 [facility] Work Phone: Blood platelet mean volumeon 09-03-2021 Platelet mean volume (Bld) [Entitic vol] 9.4 fL 6.2-12.0 [facility] Work Phone: Determination of erythrocyte mean corpuscular volume (MCV)on 09-03-2021 MCV (RBC) [Entitic vol] 89.3 fL 81-99 [facility] Work Phone: Hematocrit Auto (Bld) [Volum e fraction]on 09-03-2021 Hematocrit (Bld) [Volume fraction] 39.2 % 37-47 [facility] Work Phone: Ketones Test strip Ql (U)on 09-03-2021 Ketones Ql (U) Negative Negative [facility] Work Phone: Laboratory - Chemistry and C hemistry - challengeon 09-03-2021 ALP [Catalytic activity/Vol] 56 U/L 45-117 [facility] Work Phone: ALT [Catalytic activity/Vol] 149 U/L 13-56 [facility] Work Phone: CO2 [Moles/Vol] 25.0 mmol/L 21.0-32.0 [facility] Work Phone: Globulin (S) [Mass/Vol] 3.7 g/dL 2.2-4.2 [facility] Work Phone: Lipase [Catalytic activity/Vol] 144 U/L 73-393 [facility] Work Phone: Urea nitrogen/Creatinine [Mass ratio] 14.3 mg/mg 10-20 [facility] Work Phone: Laboratory - Hematology and Cell countson 09-03-2021 Erythrocyte distribution width (RBC) [Entitic vol] 44.6 fL 35.1-43.9 [facility] Work Phone: Erythrocyte distribution width (RBC) [Ratio] 13.5 % 11.6-14.6 [facility] Work Phone: Immature granulocytes/100 WBC (Bld) 0.600 % 0.0-0.9 [facility] Work Phone: Comment on above: IG% - Immature Granu locytes (promyelocytes, myelocytes and metamyelocytes) > 1% indicates that a LEFT SHIFT is Present. MCH (RBC) [Entitic mass] 28.9 pg 27.0-32.0 [facility] Work Phone: Nucleated RBC/100 WBC (Bld) [Ratio] 0 % 0-5 [facility] Work Phone: MCHC Auto (RBC) [Mass/Vol]on 09-03-2021 MCHC (RBC) [Mass/Vol] 32.4 g/dL 32-36 [facility] Work Phone: Mucus LM Ql (Urine sed)on Mucus Ql (Urine sed) 0 SEEN /hpf [facility] Work Phone: Nitrite Test strip Ql (U)on 09-03-2021 Nitrite Ql (U) Negative Negative [facility] Work Phone: No Panel Informationon 09-03 Estimated Creatinine Clearance Calc 75.32 ml/min [facility] Work Phone: Estimated GFR (MDRD) Amer 76 mL/min >60 [facility] Work Phone: Comment on above: GFR Calc Estimated GFR (MDRD) Non-Af Amer 63 mL/min >60 [facility] Work Phone: Comment on above: Non- GFR Calc Platelets bldon 09-03-2021 Platelets (Bld) [#/Vol] 300 10*3/uL 150-450 [facility] Work Phone: Protein Test strip Ql (U)on 09-03-2021 Protein Ql (U) 30 mg/dl Negative [facility] Work Phone: Serum or plasma albumin cherelle urement (mass/volume)on 09-03-2021 Albumin [Mass/Vol] 3.5 g/dL 3.2-5.0 [facility] Work Phone: Serum or plasma albumin/glob ulin mass ratioon 09-03-2021 Albumin/Globulin [Mass ratio] 0.9 {ratio} 0.9-2.4 [facility] Work Phone: Serum or plasma calcium cherelle urement (mass/volume)on 09-03-2021 Calcium [Mass/Vol] 9.1 mg/dL 8.5-10.1 [facility] Work Phone: Serum or plasma creatinine m easurement (mass/volume)on 09-03-2021 Creatinine [Mass/Vol] 1.12 mg/dL 0.55-1.02 [facility] Work Phone: Comment on above: The validity of the calculated GFR & GFRAA in patients over 70 years has not been determined. Clinical correlation is essential. Serum or plasma urea nitroge n measurement (mass/volume)on 09-03-2021 Urea nitrogen [Mass/Vol] 16 mg/dL 7-18 [facility] Work Phone: Squamous epithelial cells de tection in urine sediment by light microscopyon 09-03-2021 Epithelial cells.squamous LM Ql (Urine sed) 5-10 SEEN /hpf 5-10 [facility] Work Phone: Thin prep Papanicolaou smear with manual screeningon 09-03-2021 Thin prep Papanicolaou smear with manual screening 55 U/L 15-37 [facility] Work Phone: Thin prep Papanicolaou smear with manual screening 3 5-15 [facility] Work Phone: Urine blood detectionon 08-19 RBC Ql (U) Negative Negative [facility] Work Phone: RBC Ql (U) 0 SEEN /hpf 0-5 [facility] Work Phone: Urine clarityon 09-03-2021 Clarity (U) Cloudy Clear [facility] Work Phone: Urine color determinationon 09-03-2021 Color (U) Yellow Yellow [facility] Work Phone: Urine glucose detectionon Glucose Ql (U) Normal mg/dl Normal [facility] Work Phone: Urine leukocyte esterase det ection by dipstickon 09-03-2021 Leukocyte esterase Test strip Ql (U) 100 /ul Negative [facility] Work Phone: Urine pHon 09-03-2021 pH (U) 5.0 [pH] 5.0 - 8.0 [facility] Work Phone: Urine sediment bacteria coun t by microscopy (number/high power field)on 09-03-2021 Bacteria LM.HPF (Urine sed) [#/Area] 1 /[HPF] None Seen [facility] Work Phone: Urine specific gravity measu rementon 09-03-2021 Specific gravity (U) [Rel density] 1.020 1.002-1.030 [facility] Work Phone: Urobilinogen Auto test strip Ql (U)on 09-03-2021 Urobilinogen Ql (U) Normal mg/dl Normal [facility] Work Phone: Basophil percentageon 2021 Bilirubin [Mass/Vol] 0.50 mg/dL 0.20-1.00 [facility] Work Phone: Comment on above: For patients on eltr ombopag therapy, use of [place]ension [place] TBIL is not recommended. Chloride [Moles/Vol] 109 mmol/L 98-107 [facility] Work Phone: Cholesterol [Mass/Vol] 212 mg/dL <200 Wo avril [facility] Work Phone: Comment on above: <200 mg/dL Desirable 200-240 mg/dL Borderline >240 mg/dL High Risk Glucose [Mass/Vol] 84 mg/dL 74-106 [facility] Work Phone: Potassium [Moles/Vol] 4.2 mmol/L 3.5-5.1 Diane ster [facility] Work Phone: Protein [Mass/Vol] 7.4 g/dL 6.4-8.2 [facility] Work Phone: Sodium [Moles/Vol] 140 mmol/L 136-145 [facility] Work Phone: Triglyceride [Mass/Vol] 219 mg/dL <199 [facility] Work Phone: Comment on above: The drugs N-Acetylcy steine and Metamizole may falsely depress this assay.Serum Triglycerides Reference Interval Normal <150 mg/dL Borderline high 150 - 199 mg/dL High 200 - 499 mg/dL Very High > or = 500 mg/dL Laboratory - Chemistry and C hemistry - challengeon 08-31-2021 ALP [Catalytic activity/Vol] 59 U/L 45-117 [facility] Work Phone: ALT [Catalytic activity/Vol] 197 U/L 13-56 [facility] Work Phone: CO2 [Moles/Vol] 25.0 mmol/L 21.0-32.0 [facility] Work Phone: Globulin (S) [Mass/Vol] 3.8 g/dL 2.2-4.2 [facility] Work Phone: Urea nitrogen/Creatinine [Mass ratio] 22.3 mg/mg 10-20 [facility] Work Phone: No Panel Informationon 08-31 Estimated GFR (MDRD) Amer 119 mL/min >60 [facility] Work Phone: Comment on above: GFR Calc Estimated GFR (MDRD) Non-Af Amer 98 mL/min >60 [facility] Work Phone: Comment on above: Non- GFR Calc Serum or plasma albumin cherelle urement (mass/volume)on 08-31-2021 Albumin [Mass/Vol] 3.6 g/dL 3.2-5.0 [facility] Work Phone: Serum or plasma albumin/glob ulin mass ratioon 08-31-2021 Albumin/Globulin [Mass ratio] 0.9 {ratio} 0.9-2.4 [facility] Work Phone: Serum or plasma calcium cherelle urement (mass/volume)on 08-31-2021 Calcium [Mass/Vol] 9.1 mg/dL 8.5-10.1 [facility] Work Phone: Serum or plasma cholesterol in HDL measurement (mass/volume)on 08-31-2021 Cholesterol in HDL [Mass/Vol] 30 mg/dL >40 [facility] Work Phone: Comment on above: The drugs N-Acetylcy steine and Metamizole may falsely depress this assay. Reference Range HDL <40 mg/dL Low HDL Cholesterol HDL >or= 60 mg/dL High HDL Cholesterol Serum or plasma cholesterol in VLDL measurement (mass/volume)on 08-31-2021 Cholesterol in VLDL [Mass/Vol] 44 mg/dL 5-40 [facility] Work Phone: Serum or plasma creatinine m easurement (mass/volume)on 08-31-2021 Creatinine [Mass/Vol] 0.76 mg/dL 0.55-1.02 [facility] Work Phone: Comment on above: The validity of the calculated GFR & GFRAA in patients over 70 years has not been determined. Clinical correlation is essential. Serum or plasma low density lipoprotein (LDL) cholesterol measurement (mass/volume)on 08-31-2021 Cholesterol in LDL [Mass/Vol] 138 mg/dL 0-130 [facility] Work Phone: Serum or plasma urea nitroge n measurement (mass/volume)on 08-31-2021 Urea nitrogen [Mass/Vol] 17 mg/dL 7-18 [facility] Work Phone: Thin prep Papanicolaou smear with manual screeningon 08-31-2021 Thin prep Papanicolaou smear with manual screening 98 U/L 15-37 [facility] Work Phone: Thin prep Papanicolaou smear with manual screening 6 5-15 [facility] Work Phone: Basophil percentageon 2021 Basophil percentage 3.8 mg/dL 2.5-4.9 [facility] Work Phone: Chloride [Moles/Vol] 108 mmol/L 98-107 [facility] Work Phone: Glucose [Mass/Vol] 112 mg/dL 74-106 [facility] Work Phone: Comment on above: Fasting Glucose resu lt from 100 to 125 mg/dL suggests IMPAIRED HOMEOSTASIS per A.D.A. criteria. Potassium [Moles/Vol] 4.2 mmol/L 3.5-5.1 [facility] Work Phone: Sodium [Moles/Vol] 139 mmol/L 136-145 [facility] Work Phone: Laboratory - Chemistry and C hemistry - challengeon 08-24-2021 CO2 [Moles/Vol] 29.0 mmol/L 21.0-32.0 [facility] Work Phone: Urea nitrogen/Creatinine [Mass ratio] 17.5 mg/mg 10-20 [facility] Work Phone: No Panel Informationon 08-24 Estimated GFR (MDRD) Amer 148 mL/min >60 [facility] Work Phone: Comment on above: GFR Calc Estimated GFR (MDRD) Non-Af Amer 123 mL/min >60 [facility] Work Phone: Comment on above: Non- GFR Calc [place] Level 0.60 mmol/L 0.60-1.20 [facility] Work Phone: Thyroid Stimulating Hormone (TSH) 2.96 uIU/mL 0.358-3.74 [facility] Work Phone: Serum or plasma albumin cherelle urement (mass/volume)on 08-24-2021 Albumin [Mass/Vol] 3.4 g/dL 3.2-5.0 [facility] Work Phone: Serum or plasma calcium cherelle urement (mass/volume)on 08-24-2021 Calcium [Mass/Vol] 9.2 mg/dL 8.5-10.1 [facility] Work Phone: Serum or plasma creatinine m easurement (mass/volume)on 08-24-2021 Creatinine [Mass/Vol] 0.63 mg/dL 0.55-1.02 [facility] Work Phone: Comment on above: The validity of the calculated GFR & GFRAA in patients over 70 years has not been determined. Clinical correlation is essential. Serum or plasma urea nitroge n measurement (mass/volume)on 08-24-2021 Urea nitrogen [Mass/Vol] 11 mg/dL 7-18 [facility] Work Phone: Basophil percentageon 2021 Chloride [Moles/Vol] 112 mmol/L 98-107 [facility] Work Phone: Glucose [Mass/Vol] 100 mg/dL 74-106 [facility] [facility] Work [facility] Comment on above: Fasting Glucose resu lt from 100 to 125 mg/dL suggests IMPAIRED HOMEOSTASIS per A.D.A. criteria. Potassium [Moles/Vol] 4.1 mmol/L 3.5-5.1 [facility] Work Phone: Sodium [Moles/Vol] 140 mmol/L 136-145 [facility] Work Phone: WBC (Bld) [#/Vol] 6.6 10*3/uL 4.4-11.0 [facility] Work Phone: Blood erythrocytes count (nu mber/volume)on 06-27-2021 RBC (Bld) [#/Vol] 4.42 10*6/uL 4.2-5.4 [facility] Work Phone: Blood hemoglobin measurement (mass/volume)on 06-27-2021 Hemoglobin (Bld) [Mass/Vol] 12.7 g/dL 12.0-15.0 [facility] Work Phone: Blood platelet mean volumeon 06-27-2021 Platelet mean volume (Bld) [Entitic vol] 9.4 fL 6.2-12.0 [facility] Work Phone: Determination of erythrocyte mean corpuscular volume (MCV)on 06-27-2021 MCV (RBC) [Entitic vol] 87.3 fL 81-99 [facility] Work Phone: Hematocrit Auto (Bld) [Volum e fraction]on 06-27-2021 Hematocrit (Bld) [Volume fraction] 38.6 % 37-47 [facility] Work Phone: Iron measurement (mass/mass) on 06-27-2021 Iron (Unsp spec) [Mass/Mass] 50 ug/dL 50-170 [facility] Work Phone: Laboratory - Chemistry and C hemistry - challengeon 06-27-2021 CO2 [Moles/Vol] 23.0 mmol/L 21.0-32.0 [facility] Work Phone: Urea nitrogen/Creatinine [Mass ratio] 18.4 mg/mg 10-20 [facility] Work Phone: Laboratory - Hematology and Cell countson 06-27-2021 Erythrocyte distribution width (RBC) [Entitic vol] 45.0 fL 35.1-43.9 [facility] Work Phone: Erythrocyte distribution width (RBC) [Ratio] 14.0 % 11.6-14.6 [facility] Work Phone: MCH (RBC) [Entitic mass] 28.7 pg 27.0-32.0 [facility] Work Phone: MCHC Auto (RBC) [Mass/Vol]on 06-27-2021 MCHC (RBC) [Mass/Vol] 32.9 g/dL 32-36 [facility] Work Phone: No Panel Informationon 06-27 Estimated GFR (MDRD) Amer 176 mL/min >60 [facility] Work Phone: Comment on above: GFR Calc Estimated GFR (MDRD) Non-Af Amer 145 mL/min >60 [facility] Work Phone: Comment on above: Non- GFR Calc Total Iron Binding Capacity 374 ug/dL 250-450 [facility] Work Phone: Platelets bldon 06-27-2021 Platelets (Bld) [#/Vol] 273 10*3/uL 150-450 [facility] Work Phone: Serum or plasma calcium cherelle urement (mass/volume)on 06-27-2021 Calcium [Mass/Vol] 8.7 mg/dL 8.5-10.1 [facility] Work Phone: Serum or plasma creatinine m easurement (mass/volume)on 06-27-2021 Creatinine [Mass/Vol] 0.54 mg/dL 0.55-1.02 [facility] Work Phone: Comment on above: The validity of the calculated GFR & GFRAA in patients over 70 years has not been determined. Clinical correlation is essential. Serum or plasma urea nitroge n measurement (mass/volume)on 06-27-2021 Urea nitrogen [Mass/Vol] 10 mg/dL 7-18 [facility] Work Phone: Thin prep Papanicolaou smear with manual screeningon 06-27-2021 Thin prep Papanicolaou smear with manual screening 5 5-15 [facility] Work Phone: MRI Brain w/oon 02-15-2021 MRI Brain w/o EXAMINATION: MRI of the brain without contrast HISTORY: Migraine headaches COMPARISON: None. TECHNIQUE: Routine noncontrast brain MRI protocol including gradient echo images. RESULT: MR BRAIN: Hemorrhage: No evidence of prior parenchymal hemorrhage on the gradient echo images. Mass Effect / Mass Lesion: No evidence of an intracranial mass or extra-axial fluid collection. No significant mass effect. Chronic Change: The white matter is within normal limits of signal intensity for age. Parenchyma: No significant volume loss for age. The brain parenchyma is otherwise within normal limits of signal intensity and morphology. Ventricles: Normal caliber and morphology. Skull Base: Hypothalamic and pituitary region are grossly normal. Craniocervical junction is normal. No significant marrow replacement process. Vasculature: Major intracranial arterial structures, and dural venous sinuses show typical flow void, suggesting patency by spin echo criteria. Other: The visualized paranasal sinuses are clear. Mastoid air cells are clear. The orbits and extracranial soft tissues are unremarkable. IMPRESSION: Within the limits of evaluation, no acute intracranial abnormality. Report reported and signed by MARY CORDOVA on 02/15/2021 1547 [facility] LABORATORYOrdered By: Sandra Spain on 12-14-2020 Basophil, Absolute 0.10 103/mcL Invalid Interpretation Code 0.00 - 0.19 10^3/mcL AO Auto Heme SS Basophils/100 WBC (Bld) 0.9 % Invalid Interpretation Code 0.0 - 2.5 % AO Auto Heme SS Eosinophil, Absolute 0.10 103/mcL Invalid Interpretation Code 0.00 - 0.40 10^3/mcL AO Auto Heme SS Eosinophils/100 WBC (Bld) 1.5 % Invalid Interpretation Code 0.0 - 7.0 % AO Auto Heme SS Erythrocyte distribution width (RBC) [Ratio] 15.2 % Invalid Interpretation Code 11.5 - 14.5 % AO Auto Heme SS Hematocrit (Bld) [Volume fraction] 36.2 % Invalid Interpretation Code 37.0 - 47.0 % AO Auto Heme SS Hemoglobin (Bld) [Mass/Vol] 11.8 G/dL Invalid Interpretation Code 12.0 - 16.0 G/dL AO Auto Heme SS Lymphocyte, Absolute 2.90 103/mcL Invalid Interpretation Code 0.77 - 3.85 10^3/mcL AO Auto Heme SS Lymphocytes/100 WBC (Bld) 39.9 % Invalid Interpretation Code 10.0 - 50.0 % AO Auto Heme SS MCH (RBC) [Entitic mass] 26.7 pg Invalid Interpretation Code 27.0 - 31.2 pg AO Auto Heme SS MCHC (RBC) [Mass/Vol] 32.8 G/dL Invalid Interpretation Code 33.0 - 37.0 G/dL AO Auto Heme SS MCV (RBC) [Entitic vol] 81.4 fL Invalid Interpretation Code 80.0 - 94.0 fL AO Auto Heme SS Monocyte, Absolute 0.40 103/mcL Invalid Interpretation Code 0.15 - 1.00 10^3/mcL AO Auto Heme SS Monocytes/100 WBC (Bld) 5.4 % Invalid Interpretation Code 1.7 - 13.0 % AO Auto Heme SS Neutrophil, Absolute 3.80 103/mcL Invalid Interpretation Code 2.85 - 6.16 10^3/mcL AO Auto Heme SS Neutrophils/100 WBC (Bld) 52.3 % Invalid Interpretation Code 37.0 - 80.0 % AO Auto Heme SS Platelet mean volume (Bld) [Entitic vol] 7.5 fL Invalid Interpretation Code 7.4 - 10.4 fL AO Auto Heme SS Platelets (Bld) [#/Vol] 346 103/mcL Invalid Interpretation Code 130 - 400 10^3/mcL AO Auto Heme SS RBC (Bld) [#/Vol] 4.45 106/mcL Invalid Interpretation Code 4.20 - 5.40 10^6/mcL AO Auto Heme SS WBC (Bld) [#/Vol] 7.20 103/mcL Invalid Interpretation Code 4.60 - 10.80 10^3/mcL AO Auto Heme SS LABORATORYOrdered By: Natalie Stringer on 12-14-2020 Calcium [Mass/Vol] 9.0 mg/dL Invalid Interpretation Code 8.4 - 10.2 mg/dL AO ADM SS Chloride [Moles/Vol] 104 mmol/L Invalid Interpretation Code 98 - 107 mmol/L AO ADM SS CO2 [Moles/Vol] 28 mmol/L Invalid Interpretation Code 22 - 29 mmol/L AO ADM SS Creatinine [Mass/Vol] 0.70 mg/dL Invalid Interpretation Code 0.55 - 1.02 mg/dL AO ADM SS Electrolyte Balance 10.0 mEq/L Invalid Interpretation Code AO ADM SS Glucose [Mass/Vol] 89 mg/dL Invalid Interpretation Code 70 - 105 mg/dL AO ADM SS Potassium [Moles/Vol] 4.6 mmol/L Invalid Interpretation Code 3.5 - 5.1 mmol/L AO ADM SS Sodium [Moles/Vol] 142 mmol/L Invalid Interpretation Code 136 - 145 mmol/L AO ADM SS Urea nitrogen [Mass/Vol] 11 mg/dL Invalid Interpretation Code 7 - 18 mg/dL AO ADM SS Urea nitrogen/Creatinine [Mass ratio] 16 ratio Invalid Interpretation Code 7 - 27 ratio AO ADM SS LABORATORYOrdered By: SYSTEM SYSTEM on 12-14-2020 GFR 125 ml/min/1.73sqm Invalid Interpretation Code AO Chemistry S GFR Non- 103 ml/min/1.73sqm Invalid Interpretation Code AO Chemistry S No Panel Informationon 01-06 IMPRESSION: No radiographic evidence of acute osseous injury. General Accounting Manager: ELLYN Transcribe Date/Time: Jan 07 2020 9:27A Dictated by : ROBB JULES MD This examination was interpreted and the report reviewed and electronically signed by: ROBB JULES MD on Jan 07 2020 9:29AM [facility] DIVISION OF RADIOLOGY Radiology Study observation (narrative) [facility] No Panel InformationOrdered By: Ccf Provider on 01-07-[address] [facility] XR Ankle - left AP and Later al and obliqueon 01-07-2020 * * *Final Report* * * DATE OF EXAM: Jan 07 2020 9:20AM WOX 5298 - XR ANKLE 3V AP/LAT/OBL LT / PROCEDURE REASON: Sprain of ligament of left ankle, initial encounter * * * * Physician Interpretation * * * * CLINICAL INDICATION: Twisted ankle with pain TECHNIQUE: 3 view radiographic study of the left ankle and foot with inclusion of a single frontal view of the right side for purposes of comparison/symmetry. COMPARISON: None FINDINGS: No acute fracture or dislocation identified. Joint spaces preserved. DIVISION OF RADIOLOGY Provider, [facility] - 01/07/2020 * * *Final Report* * * DATE OF EXAM: Jan 07 2020 9:20AM WOX 5298 - XR ANKLE 3V AP/LAT/OBL LT / PROCEDURE REASON: Sprain of ligament of left ankle, initial encounter * * * * Physician Interpretation * * * * CLINICAL INDICATION: Twisted ankle with pain TECHNIQUE: 3 view radiographic study of the left ankle and foot with inclusion of a single frontal view of the right side for purposes of comparison/symmetry. COMPARISON: None FINDINGS: No acute fracture or dislocation identified. Joint spaces preserved. IMPRESSION IMPRESSION: No radiographic evidence of acute osseous injury. General Accounting Manager: ELLYN Transcribe Date/Time: Jan 07 2020 9:27A Dictated by : ROBB JULES MD This examination was interpreted and the report reviewed and electronically signed by: ROBB JULES MD on Jan 07 2020 9:29AM EST [facility] XR Foot - left AP and Latera l and obliqueon 01-07-2020 * * *Final Report* * * DATE OF EXAM: Jan 07 2020 9:20AM WOX 5336 - XR FOOT 3V AP/LAT/OBL LT / PROCEDURE REASON: Foot pain, left * * * * Physician Interpretation * * * * CLINICAL INDICATION: Twisted ankle with pain TECHNIQUE: 3 view radiographic study of the left ankle and foot with inclusion of a single frontal view of the right side for purposes of comparison/symmetry. COMPARISON: None FINDINGS: No acute fracture or dislocation identified. Joint spaces preserved. DIVISION OF RADIOLOGY Provider, [facility] - 01/07/2020 * * *Final Report* * * DATE OF EXAM: Jan 07 2020 9:20AM WOX 5336 - XR FOOT 3V AP/LAT/OBL LT / PROCEDURE REASON: Foot pain, left * * * * Physician Interpretation * * * * CLINICAL INDICATION: Twisted ankle with pain TECHNIQUE: 3 view radiographic study of the left ankle and foot with inclusion of a single frontal view of the right side for purposes of comparison/symmetry. COMPARISON: None FINDINGS: No acute fracture or dislocation identified. Joint spaces preserved. IMPRESSION IMPRESSION: No radiographic evidence of acute osseous injury. General Accounting Manager: [facility] Transcribe Date/Time: Jan 07 2020 9:27A Dictated by : ROBB JULES MD This examination was interpreted and the report reviewed and electronically signed by: ROBB JULES MD on Jan 07 2020 9:29AM [facility] Progress Noteon 01-31-2017 Line Builder Authentication Interface Message Text SUBJECTIVE: Marion Gutierrez is a 21 y.o. female who presents with a chiefcomplaint ofChief ComplaintPatient presents with PCOS est pt.HPI:Marion presents today with her mother up visit for PCOS and hirsutism. Marionwas started on Metformin 850 mg BID in June. But due to her irritablebowel issues and stomach issues she was taken off. She was started on oral birthcontrol pills for her PCOS in August 2015. Since starting the control pillher periods are regular. Marion states that she has not been using thedepilatory cream for her face. She denies missing any doses of her medication.Since our last visit mom states that there has not been any further suicideattempts. Her last attempt was in July 14, 2016. [facility] At that time she was diagnosed with Bipolarand Addictive behavior. She is seeing a counselor weekly and thus far thingshave been going well. Also she is following a guten and dairy free diet whichmarcello and Marion both state has helped a great deal.Prior to her suicide attempt mom states she has been off and on her birthcontrol pills. But currently she has been taking the medication daily. She wastaken off all her medication and then placed on Abilify and [place] at this lastadmission. I did review the use of oral control will continue to helpwith her periods and her acanthosis. Recommend a Combination Oral Contraceptivewith antiandrogenic effects. It has also been proven effective in decreasinghirsutism, decreasing testosterone levels, increasing SHBG, and decreasing acne.Serious adverse effect of oral contraceptives is blood clots. If there is astrong family history of blood clots, I may recommend against the use of oralcontraceptives. There is no family history of blood clotting.Marion has been followed by GI for her loose stools and abdominal pain. GI haddone a scope on Marion and noted to have chronic gastritis and with possibleIBS. Marion was placed on Viberzi a new medication for her IBS which she stateshas helped her a lot, but is no longer on. As you know Marion had seen in the past for fatty liver.As you may recall Marion's mother had noted dark eagle around her neck, axilla,and cleavage area for the past 4 years,2008, which has seemed to get worse. Shealso states she is hairy on her face and butt area. Mom states that she has alot of issues especially bone, constipation and fatty liver. Marion's weight is> 97 th percentile and her height is between the 75 th - 90 th percentile. Hermid parental target height is 65.4 inches.Past Medical History:Diagnosis Date ADHD (attention deficit hyperactivity disorder) AUTISM SPECTRUM, PDD,DEPRESSION Ankle pain FEB 2013 right ankle Autism Depression hosp at 10y [facility] prior to Dx w/autism spectrum disorder,PDD,ADHD Developmental delay Fatty liver seen Dr. Thomson about 3-4 yrs ago for this condition Foot pain Fractures Irritable bowel syndrome REASON FOR INVOLVEMENT W/GI, DR THOMSON ODD (oppositional defiant disorder) PCOS (polycystic ovarian syndrome) PDD (pervasive developmental disorder) Reflux occasional heartburn per mother Scoliosis Suicide attempt 06/2016 one previous visit earlier in 2016 Wrist painOutpatient Prescriptions Marked as Taking for the 01/31/17 encounter (OfficeVisit) with Sommer Lechuga, CNPMedication Sig Dispense Refill ARIPiprazole (ABILIFY) 10 MG tabletTake 7.5 mg by mouth daily LITHIUM CARBONATE POTake 300 mg by mouth 2 times daily norgestimate-ethinyl estradiol (ORTHO-CYCLEN) 0.25-35 MG-MCG per tablet Takeone tablet by mouth once daily. 30 Tab 11AllergiesAllergen Reactions Dairy Aid [Lactase] Nausea Only Eats dairy products, just limit amount Gluten Meal Diarrhea Lexapro [Escitalopram Oxalate] Other (See Comments) Suicidal ideation Seasonal Allergies Zofran [Ondansetron Hcl] Other (See Comments) Tongue swellingROS:All other systems were reviewed and are negative unless otherwise specifiedCONSTITUTIONAL: develomental delaysEYES: Wears GlassesRESPIRATORY: negativeCARDIOVASCULAR: Chest Pain, Palpitation and heart racingGI: Constipation, Diarrhea and nauseaSKIN: Striae and male pattern hair growthENDOCRINE: Feels Hot, Feels Cold and ThirstNEUROLOGIC: Headaches, Dizziness and Tingly SensationPSYCHIATRIC: Anxiety, Depression, Emotional Problems and mood swingsPERIODS: Regular, Menarche Age 14 years, LMP 01/31/17PE:BP 128/70 Pulse 84 Ht 167.9 cm Wt (!) 112.1 kg BMI 39.77 kg/m Growth percentile SmartLinks can only be used for patients less than 20 yearsold.Body mass index is 39.77 kg/m .Body surface area is 2.29 meters squared.Wt Readings from Last 3 Encounters:01/31/17 (!) 112.1 kg06/14/17 (!) 105.6 kg (>99 %, Z > 2.33)*07/14/16 (!) 101.1 kg (99 %, Z= 2.24) Growth percentiles are based on [facility] 2-20 Years data.Ht Readings from Last 3 Encounters:01/31/17 167.9 cm08/02/16 167.9 cm (76 %, Z= 0.71)*06/21/16 167.5 cm (74 %, Z= 0.65) Growth percentiles are based on [facility] 2-20 Years data.Body mass index is 39.77 kg/m .Facility age limit for growth percentiles is 20 years.Facility age limit for growth percentiles is 20 years.Facility age limit for growth percentiles is 20 years.Constitutional: Well developed, well nourished obese.Head: normocephalic. No dysmorphic features.Eyes: pupils equal, round, and reactive to light, sclera and conjunctiva clear,extraocular movements are intactNose: nares patent without dischargeThroat: oropharynx is clear without tonsillar inflammation or exudate, mucousmembranes are pink and moist without lesionsNeck: there is full range of motion, no cervical lymphadenopathy is presentThyroid: No thyromegaly. No palpable nodules.Chest: breath sounds are clear to auscultation bilaterally without rales,rhonchi, or wheezesCardiac: regular rate and rhythm, normal S1 and S2. No murmurAbdomen: abdomen is soft, non tender, and non distended withouthepatosplenomegal y or masses. Noted pale pink striae.Back: noted scars from scoliosis surgeryGU: deferred today ( last visit 12/01 Nuno Stage: IV for pubic hair andbreasts: Axillary Hair: noted Body Odor:noted chapped skin in the groin andvaginal area.)Skin: Warm and dry. No rashes or lesions. Noted acanthosis to the nap of neckarea, less prominent areas to the axilla, knuckles, cleavage and axilla. Thereis noted hair on the neck area near the jaw line and cervical area. But sparsehair from the umbilicus area to the mons pubis. Noted increase in hair growth onneck and lower jaw bone from previous visitMusculoskeletal: Full ROM. Noted scar on her back from scoliosis surgeryNEURO: PERRL. Strong movement all extremities. DTR's nl. Normal tone.Labs and Studies Reviewed:Labs done 01/31/17: HgbA1c is 5.2%.Lab done on 02/23/15:Fasting insulin level 22 uIU/ml ( 0-17)Labs done on 04/02/14:Which revealed a slightly elevated AST and ALT.Labs done 05/13/13: from the ACTH/OGTT test. This revealed hyperinsulinemia and PCOS.ASSESSMENT:Marion is a 21 y.o. female which has clinical evidence of hyperandrogenism,hirsuti sm and IBS. I stressed the importance to continue to incorporate ahealthy diet and exercise. Since Marion has had issues with her stomach we willno longer use Metformin. She is on Ortho cyclen which has regulated her menses.As for her hirsutism this has gotten better since she has been consistent withtaking her oral control on a regular bases. Noted to have polyuria andpolydipsia.PLAN:1. Will continue the Ortho-cyclen 1 tablet once daily. Refills done for 6 months2. Follow up in 6 months3. Continue to work on portion control and healthy options.4. I reviewed with Marion the risk of oral control and use of protectionif she would be come sexual active.5. Need to transition to adult either ASSISTANT SPEECH LANGUAGE PATHOLOGIST, assistant professor in family studies, or family provider.6. Obtain [id number] total of 25 minutes was spent during the visit today with more than 50% oftotal time spent in face to face counseling and/or coordination of care. [facility] Progress Noteon 09-18-2016 Line Builder Authentication Interface Message Text CHIEF COMPLAINT: Shoulder pain and knee painHISTORY OF PRESENT ILLNESS: The patient is a 20 y.o. female who presents todayfor evaluation of bilateral shoulder and knee pain. The patient does not recallany mechanism of injury and states that the pain has been present for about 4weeks. The patient reports no cracking, popping, or snapping in the shoulder.The patient reports no numbness or tingling in the upper extremity orfingertips. The patient reports no weakness or instability of the shoulder orupper extremity. Pt also c/o knee pain. Hx of patellar fracture of left kneethat was surgically repaired.She is not involved in extra curricular's andstates that she eats, sleeps and watches tv.Past Medical History:Diagnosis Date ADHD (attention deficit hyperactivity disorder) AUTISM SPECTRUM, PDD,DEPRESSION Ankle pain FEB 2013 right ankle Autism Depression hosp at 10y [facility] prior to Dx w/autism spectrum disorder,PDD,ADHD Developmental delay Fatty liver seen Dr. Thomson about 3-4 yrs ago for this condition Foot pain Fractures Irritable bowel syndrome REASON FOR INVOLVEMENT W/GI, DR THOMSON ODD (oppositional defiant disorder) PCOS (polycystic ovarian syndrome) PDD (pervasive developmental disorder) Reflux occasional heartburn per mother Scoliosis Suicide attempt 06/2016 one previous visit earlier in 2016 Wrist painPHYSICAL EXAMINATION:On physical examination, The patient is an overweight 20 y.o. female in noapparent distress. Upon examination of the neck, the patient has full, painlessrange of motion, Spurling maneuver is negative for pain. On examination of theright and left shoulder, there is no obvious deformity noted. There is noswelling, erythema, or warmth of the shoulder. The patient c/o pain just overthe spine of the scapula bilaterally, worse on the left. . Distally, the rightand left hands are neurovascularly intact to both motor and sensory testing inthe distributions of the median, radial, and ulnar nerves. The patient hasfull and painless abduction, adduction, internal and external rotation of theshoulder. 5/ 5 strength in upper extremities. Upon observation of the knees,no effusion noted. Full ROM.X-RAYS: 2 views left knee obtained. For official x-ray interpretation, pleaserefer to Dr. Lees's dictation for this date of service.DIAGNOSIS/IMPRES ROSALIA:1. Muscular shoulder pain, bilateraly2. Bilateral knee painTREATMENT PLAN: At this time, the patient was written a prescription forphysical therapy. The patient may ice for discomfort. No anti inflammatoriesbecause she is on lithium. The patient is going through a lot of testing (numbfoot, vision problems, sugary tast in mouth, etc) and if the tests come backnormal, she can initiate therapy. Fu as needed.Review of systems is negative for other significant musculoskeletal pain, lossof vision, hearing loss, high blood pressure, shortness of breath, skin ulcers,paresthesia, lymphedema, temperature intolerance, or nausea, unless otherwisestated in the history of present illness or past medical history. [facility] Line Builder Authentication Interface Message Text PHYSICIAN STATEMENT:This patient was personally seen and examined by me in conjunction with ournurse practioner, Delio Brunson, Edward. After shared discussion, shehas documented the pertinent aspects of this visit. I have participated inpertinent elements of the history, physical exam, and medical decision making assummarized below and I agree with her clinical documentation unless otherwisenoted. Please refer to her chart note regarding this patient.X-ray report: AP and lateral x-rays of the left knee were obtained today to seeif the previous patellar fracture was adequately healed and that theinstrumentation was not causing problems. There are 2 headless Acutrak screwssitting in good position. There is a small defect in the articular surface ofthe patella but probably not contributing to the current pain. Remainder of theknee x-ray is normal.Pertinent Comments/ Visit Summary/ Plan: She has been complaining of bilateralupper posterior shoulder pain in the area of the trapezius and the supraspinous.Her range of motion is excellent. She does not have true radicular signs.There is no history of any injury. Unfortunately she continues to have gainedquite a bit of weight and is now on lithium and several other psychotropic medsfor depression, autism, and bipolar disorder. All of the above are probablycontributing to her pain profile which includes both knees and both shoulders.We are limited as to what we can do for anti-inflammatories because of thelithium. I encouraged her to try to get some weight off and start to work onmore activity and perhaps even an exercise program. She was given an exerciseprescription and will see physical therapy for that.She is in the midst of a workup for some visual problems and has some vascularstudies as well as MRI of the head scheduled. In addition she is scheduled tosee an visitor services specialist because of some unusual mobility in one of the eyes.There are many factors there probably contributing to her generalized pain inthe shoulders and knees and hopefully we can work these out without furtherextensive workup. Normal [facility] Ova and parasites Ova and parasites identified LM Nom (Unsp spec) [facility] Work Phone: Stool lactoferrin detection by immunoassay Lactoferrin IA Ql (Stl) [facility] Work Phone: Vital Signs Date Time Vital Sign Value Performing Clinician Facility 07-24-2024 07:25-0400 Body mass index (BMI) [Ratio] 47 kg/m2 Naina Da Silva SR. MANAGER [employer] Work Phone: [facility] 07-24-2024 07:25-0400 Body weight 132.9 kg Naina Da Silva SR. MANAGER [employer] Work Phone: [facility] 07-24-2024 07:25-0400 Diastolic blood pressure 76 mm[Hg] Naina Da Silva SR. MANAGER [employer] Work Phone: [facility] 07-24-2024 07:25-0400 Heart rate 56 /min Naina Da Silva SR. MANAGER [employer] Work Phone: [facility] 07-24-2024 07:25-0400 Respiratory rate 18 /min Naina Da Silva SR. MANAGER [employer] Work Phone: [facility] 07-24-2024 07:25-0400 SaO2% (BldA) [Mass fraction] 97 % Naina Da Silva SR. MANAGER [employer] Work Phone: [facility] 07-24-2024 07:25-0400 Systolic blood pressure 121 mm[Hg] Naina Da Silva SR. MANAGER [employer] Work Phone: [facility] 07-15-2024 10:49-0400 Body height 170.2 cm Jey Johnson MD Work Phone: [facility] 07-15-2024 10:49-0400 Body mass index (BMI) [Ratio] 46.42 kg/m2 Jey Johnson MD Work Phone: [facility] 07-15-2024 10:49-0400 Body weight 134.45 kg Jey Johnson MD Work Phone: [facility] 07-15-2024 10:49-0400 Diastolic blood pressure 78 mm[Hg] Jey Johnson MD Work Phone: [facility] 07-15-2024 10:49-0400 Heart rate 61 /min Jey Johnson MD Work Phone: [facility] 07-15-2024 10:49-0400 Respiratory rate 20 /min Jey Johnson MD Work Phone: [facility] 07-15-2024 10:49-0400 SaO2% (BldA) [Mass fraction] 97 % Jey Johnson MD Work Phone: [facility] 07-15-2024 10:49-0400 Systolic blood pressure 122 mm[Hg] Jey Johnson MD Work Phone: [facility] 06-03-2024 13:14-0400 Body temperature 97.9 [degF] Naina Da Silva SR. MANAGER [employer] Work Phone: [facility] 06-03-2024 13:14-0400 Diastolic blood pressure 87 mm[Hg] Naina Da Silva SR. MANAGER [employer] Work Phone: [facility] 06-03-2024 13:14-0400 Heart rate 107 /min Naina Da Silva SR. MANAGER [employer] Work Phone: [facility] 06-03-2024 13:14-0400 Respiratory rate 22 /min Naina Da Silva SR. MANAGER [employer] Work Phone: [facility] 06-03-2024 13:14-0400 SaO2% (BldA) [Mass fraction] 99 % Naina Da Silva SR. MANAGER [employer] Work Phone: [facility] 06-03-2024 13:14-0400 Systolic blood pressure 161 mm[Hg] Naina Da Silva SR. MANAGER [employer] Work Phone: [facility] 06-03-2024 09:38-0400 Body height 168 cm Naina Da Silva SR. MANAGER [employer] Work Phone: [facility] 06-03-2024 09:38-0400 Body mass index (BMI) [Ratio] 47.7 kg/m2 Naina Da Silva SR. MANAGER [employer] Work Phone: 9(059)336-698294 [place] [address] 06-03-2024 09:38-0400 Body weight 134.7 kg Naina Da Silva SR. MANAGER [employer] Work Phone: 9(856)150-692494 [place] [address] 06-02-2024 19:26-0400 Body height 167.64 cm Naina Da Silva SR. MANAGER [employer] Work Phone: 8(232)533-561994 [place] [address] 06-02-2024 19:26-0400 Body mass index (BMI) [Ratio] 47.9 kg/m2 Naina Da Silva SR. MANAGER [employer] Work Phone: 0(895)308-061094 [place] [address] 06-02-2024 19:26-0400 Body temperature 97.8 [degF] Naina Da Silva SR. MANAGER [employer] Work Phone: 9(172)122-338094 [place] [address] 06-02-2024 19:26-0400 Body weight 134.76 kg Naina Da Silva SR. MANAGER [employer] Work Phone: 7(967)909-218094 [place] [address] 06-02-2024 19:26-0400 Diastolic blood pressure 112 mm[Hg] Naina Da Silva SR. MANAGER [employer] Work Phone: 5(209)334-717894 [place] [address] 06-02-2024 19:26-0400 Heart rate 103 /min Naina Da Silva SR. MANAGER [employer] Work Phone: 2(522)308-368194 [place] [address] 06-02-2024 19:26-0400 Respiratory rate 13 /min Naina Da Silva SR. MANAGER [employer] Work Phone: 6(253)357-468812 [place] [address] 06-02-2024 19:26-0400 SaO2% (BldA) [Mass fraction] 100 % Naina Da Silva SR. MANAGER [employer] Work Phone: 0(353)208-907394 [place] [address] 06-02-2024 19:26-0400 Systolic blood pressure 172 mm[Hg] Naina Da Silva SR. MANAGER [employer] Work Phone: 5(375)367-845594 [place] [address] 05-29-2024 14:41-0400 Diastolic blood pressure 114 mm[Hg] Naina Da Silva SR. MANAGER [employer] Work Phone: 9(212)707-783794 [place] [address] 05-29-2024 14:41-0400 Systolic blood pressure 161 mm[Hg] Naina Da Silva SR. MANAGER [employer] Work Phone: [facility] 05-29-2024 14:29-0400 Body mass index (BMI) [Ratio] 47.7 kg/m2 Naina Da Silva SR. MANAGER [employer] Work Phone: [facility] 05-29-2024 14:29-0400 Body weight 134.26 kg Naina Da Silva SR. MANAGER [employer] Work Phone: [facility] 05-29-2024 14:29-0400 Heart rate 98 /min Naina Da Silva SR. MANAGER [employer] Work Phone: [facility] 05-29-2024 14:29-0400 Respiratory rate 18 /min Naina Da Silva SR. MANAGER [employer] Work Phone: [facility] 05-29-2024 14:29-0400 SaO2% (BldA) [Mass fraction] 97 % Naina Da Silva SR. MANAGER [employer] Work Phone: [facility] 05-16-2024 08:52-0400 Body mass index (BMI) [Ratio] 46.28 kg/m2 Huey Cortes DO, PhD Work Phone: [facility] 05-16-2024 08:52-0400 Body weight 134.04 kg Huey Cortes DO, PhD Work Phone: [facility] Comment on above: Patient-reported 05-16-2024 08:52-0400 Diastolic blood pressure 102 mm[Hg] Huey Cortes DO, PhD Work Phone: [facility] Comment on above: Patient-reported 05-16-2024 08:52-0400 Heart rate 100 /min Huey Cortes DO, PhD Work Phone: [facility] Comment on above: Patient-reported 05-16-2024 08:52-0400 Systolic blood pressure 177 mm[Hg] Huye Cortes DO PhD Work Phone: [facility] Comment on above: Patient-reported 05-15-2024 00:14-0400 Body temperature 98.1 [degF] Naina Da Silva NP-C Work Phone: 1(335)416-822612 [place] [address] 05-15-2024 00:14-0400 Diastolic blood pressure 65 mm[Hg] Naina Da Silva SR. MANAGER [employer] Work Phone: 3(405)476-108294 [place] [address] 05-15-2024 00:14-0400 Heart rate 88 /min Naina Da Silva SR. MANAGER [employer] Work Phone: 0(013)554-466094 [place] [address] 05-15-2024 00:14-0400 Respiratory rate 22 /min Naina Da Silva SR. MANAGER [employer] Work Phone: 2(370)446-749694 [place] [address] 05-15-2024 00:14-0400 SaO2% (BldA) [Mass fraction] 99 % Naina Da Silva SR. MANAGER [employer] Work Phone: 2(803)019-888694 [place] [address] 05-15-2024 00:14-0400 Systolic blood pressure 123 mm[Hg] Naina Da Silva SR. MANAGER [employer] Work Phone: 8(880)373-148794 [place] [address] 05-14-2024 20:47-0400 Body height 167.64 cm Naina Da Silva SR. MANAGER [employer] Work Phone: 1(041)401-862094 [place] [address] 05-14-2024 20:47-0400 Body mass index (BMI) [Ratio] 47.1 kg/m2 Naina Da Silva SR. MANAGER [employer] Work Phone: 2(241)542-563994 [place] [address] 05-14-2024 20:47-0400 Body weight 132.53 kg Naina Da Silva SR. MANAGER [employer] Work Phone: 0(610)951-324094 [place] [address] 05-08-2024 17:24-0400 Body temperature 97.2 [degF] Naina Da Silva SR. MANAGER [employer] Work Phone: 7(298)040-084594 [place] [address] 05-08-2024 17:24-0400 Diastolic blood pressure 96 mm[Hg] Naina Da Silva SR. MANAGER [employer] Work Phone: 8(606)616-626394 [place] [address] 05-08-2024 17:24-0400 Heart rate 79 /min Naina Da Silva SR. MANAGER [employer] Work Phone: 1(940)032-350494 [place] [address] 05-08-2024 17:24-0400 Respiratory rate 14 /min Naina Da Silva SR. MANAGER [employer] Work Phone: 4(255)911-018194 [place] [address] 05-08-2024 17:24-0400 SaO2% (BldA) [Mass fraction] 99 % Naina Da Silva SR. MANAGER [employer]C Work Phone: [facility] 05-08-2024 17:24-0400 Systolic blood pressure 128 mm[Hg] Naina Da Silva SR. MANAGER [employer]C Work Phone: [facility] 05-08-2024 14:36-0400 Body height 167.64 cm Naina Da Silva SR. MANAGER [employer] Work Phone: [facility] 05-08-2024 14:36-0400 Body mass index (BMI) [Ratio] 46.1 kg/m2 Naina Da Silva SR. MANAGER [employer] Work Phone: [facility] 05-08-2024 14:36-0400 Body weight 129.72 kg Naina Da Silva SR. MANAGER [employer] Work Phone: [facility] 04-15-2024 11:25-0500 Body height 170.2 cm Jey Johnson MD Work Phone: [facility] 04-15-2024 11:25-0500 Body mass index (BMI) [Ratio] 45.67 kg/m2 Jey Johnson MD Work Phone: [facility] 04-15-2024 11:25-0500 Body weight 132.27 kg Jey Johnson MD Work Phone: [facility] 04-15-2024 11:25-0500 Diastolic blood pressure 68 mm[Hg] Jey Johnson MD Work Phone: [facility] 04-15-2024 11:25-0500 Heart rate 68 /min Jey Johnson MD Work Phone: [facility] 04-15-2024 11:25-0500 Respiratory rate 20 /min Jey Johnson MD Work Phone: [facility] 04-15-2024 11:25-0500 SaO2% (BldA) [Mass fraction] 98 % Jey Johnson MD Work Phone: [facility] 04-15-2024 11:25-0500 Systolic blood pressure 120 mm[Hg] Jey Johnson MD Work Phone: [facility] 04-14-2024 16:19-0500 Body mass index (BMI) [Ratio] 46.17 kg/m2 Mj Balderas MD Work Phone: [facility] 04-14-2024 16:19-0500 Body temperature 98.49 [degF] Mj Balderas MD Work Phone: [facility] 04-14-2024 16:19-0500 Body weight 133.7 kg Mj Balderas MD Work Phone: [facility] 04-14-2024 16:19-0500 Diastolic blood pressure 98 mm[Hg] Mj Balderas MD Work Phone: [facility] 04-14-2024 16:19-0500 Heart rate 76 /min Mj Balderas MD Work Phone: [facility] 04-14-2024 16:19-0500 Respiratory rate 18 /min Mj Balderas MD Work Phone: [facility] 04-14-2024 16:19-0500 SaO2% (BldA) [Mass fraction] 97 % Mj Balderas MD Work Phone: [facility] 04-14-2024 16:19-0500 Systolic blood pressure 142 mm[Hg] Mj Balderas MD Work Phone: [facility] 01-25-2024 12:44-0500 Body mass index (BMI) [Ratio] 46.61 kg/m2 Louis Schmidt APRN.INTERNAL COMBUSTION ENGINEER Work Phone: [facility] 01-25-2024 12:44-0500 Body temperature 98.6 [degF] Louis Schmidt APRN.INTERNAL COMBUSTION ENGINEER Work Phone: [facility] 01-25-2024 12:44-0500 Body weight 135 kg Louis Schmidt APRN.INTERNAL COMBUSTION ENGINEER Work Phone: [facility] 01-25-2024 12:44-0500 Diastolic blood pressure 90 mm[Hg] Louis Schmidt APRN.INTERNAL COMBUSTION ENGINEER Work Phone: [facility] 01-25-2024 12:44-0500 Heart rate 69 /min Louis Schmidt APRN.INTERNAL COMBUSTION ENGINEER Work Phone: [facility] 01-25-2024 12:44-0500 Respiratory rate 20 /min Louis Schmidt APRN.INTERNAL COMBUSTION ENGINEER Work Phone: [facility] 01-25-2024 12:44-0500 SaO2% (BldA) [Mass fraction] 100 % Louis Schmidt APRN.INTERNAL COMBUSTION ENGINEER Work Phone: [facility] 01-25-2024 12:44-0500 Systolic blood pressure 132 mm[Hg] Louis Schmidt APRN.INTERNAL COMBUSTION ENGINEER Work Phone: [facility] 01-24-2024 13:52-0500 Body mass index (BMI) [Ratio] 46.61 kg/m2 Krislyn Aberegg PA Work Phone: [facility] 01-24-2024 13:52-0500 Body temperature 97.9 [degF] Krislyn Aberegg PA Work Phone: [facility] 01-24-2024 13:52-0500 Body weight 135 kg Krislyn Aberegg PA Work Phone: [facility] 01-24-2024 13:52-0500 Diastolic blood pressure 82 mm[Hg] Krislyn Aberegg PA Work Phone: [facility] 01-24-2024 13:52-0500 Heart rate 73 /min Krislyn Aberegg PA Work Phone: [facility] 01-24-2024 13:52-0500 Respiratory rate 20 /min Krislyn Aberegg PA Work Phone: [facility] 01-24-2024 13:52-0500 SaO2% (BldA) [Mass fraction] 98 % Krislyn Aberegg PA Work Phone: [facility] 01-24-2024 13:52-0500 Systolic blood pressure 128 mm[Hg] Dionimeg Bekah PA Work Phone: [facility] 01-14-2024 14:31-0500 Body height 167.64 cm Naina Da Silva SR. MANAGER [employer] Work Phone: [facility] 01-14-2024 14:31-0500 Body mass index (BMI) [Ratio] 47.4 kg/m2 Naina Da Silva SR. MANAGER [employer]-C Work Phone: [facility] 01-14-2024 14:31-0500 Body weight 133.35 kg Naina Da Silva SR. MANAGER [employer]-C Work Phone: [facility] 01-14-2024 14:31-0500 Diastolic blood pressure 78 mm[Hg] Naina Da Silva SR. MANAGER [employer]-C Work Phone: [facility] 01-14-2024 14:31-0500 Heart rate 93 /min Naina Da Silva SR. MANAGER [employer] Work Phone: [facility] 01-14-2024 14:31-0500 Respiratory rate 18 /min Naina Da Silva SR. MANAGER [employer]-C Work Phone: [facility] 01-14-2024 14:31-0500 SaO2% (BldA) [Mass fraction] 96 % Naina Da Silva SR. MANAGER [employer]-C Work Phone: [facility] 01-14-2024 14:31-0500 Systolic blood pressure 127 mm[Hg] Naina Da Silva SR. MANAGER [employer]-C Work Phone: [facility] 01-08-2024 11:52-0500 Body height 170.2 cm Jey Johnson MD Work Phone: [facility] 01-08-2024 11:52-0500 Body mass index (BMI) [Ratio] 46.05 kg/m2 Jey Johnson MD Work Phone: [facility] 01-08-2024 11:52-0500 Body weight 133.36 kg Jey Johnson MD Work Phone: [facility] 01-08-2024 11:52-0500 Diastolic blood pressure 76 mm[Hg] Jey Johnson MD Work Phone: [facility] 01-08-2024 11:52-0500 Heart rate 72 /min Jey Johnson MD Work Phone: [facility] 01-08-2024 11:52-0500 Respiratory rate 21 /min Jey Johnson MD Work Phone: [facility] 01-08-2024 11:52-0500 SaO2% (BldA) [Mass fraction] 100 % Jey Johnson MD Work Phone: [facility] 01-08-2024 11:52-0500 Systolic blood pressure 122 mm[Hg] Jey Johnson MD Work Phone: [facility] 12-31-2023 13:55-0500 Body height 170.2 cm Stefania Weygandt SR. MANAGER CORPORATE COMMUNICATIONS Work Phone: [facility] 12-31-2023 13:55-0500 Body mass index (BMI) [Ratio] 46.36 kg/m2 Stefania Weygandt SR. MANAGER [employer]PORATE COMM[employer]ICATIONS Work Phone: [facility] 12-31-2023 13:55-0500 Body weight 134.26 kg Stefania Weygandt SR. MANAGER [employer]ATE [employer]ICATIONS Work Phone: [facility] 12-31-2023 13:55-0500 Diastolic blood pressure 86 mm[Hg] Stefania Weygandt SR. MANAGER [employer]ATE [employer]ICATIONS Work Phone: [facility] 12-31-2023 13:55-0500 Heart rate 75 /min Stefania Weygandt SR. MANAGER [employer]ATE COMM[employer]ICATIONS Work Phone: [facility] 12-31-2023 13:55-0500 SaO2% (BldA) [Mass fraction] 99 % Stefania Weygandt SR. MANAGER [employer]PORATE COMM[employer]ICATIONS Work Phone: [facility] 12-31-2023 13:55-0500 Systolic blood pressure 124 mm[Hg] Stefania Weygandt SR. MANAGER [employer]PORATE COMM[employer]ICATIONS Work Phone: [facility] 10-26-2023 15:23-0400 Body height 170.2 cm Jey Johnson MD Work Phone: [facility] 10-26-2023 15:23-0400 Body mass index (BMI) [Ratio] 43.92 kg/m2 Jey Johnson MD Work Phone: [facility] 10-26-2023 15:23-0400 Body temperature 97.9 [degF] Jey Johnson MD Work Phone: [facility] 10-26-2023 15:23-0400 Body weight 127.19 kg Jey Johnson MD Work Phone: [facility] 10-26-2023 15:23-0400 Heart rate 61 /min Jey Johnson MD Work Phone: [facility] 10-26-2023 15:23-0400 SaO2% (BldA) [Mass fraction] 99 % Jey Johnson MD Work Phone: [facility] 09-13-2023 16:21-0400 Body temperature 98.91 [degF] Mj Balderas MD Work Phone: [facility] 09-13-2023 16:21-0400 Body weight 135.5 kg Mj Balderas MD Work Phone: [facility] 09-13-2023 16:21-0400 Diastolic blood pressure 68 mm[Hg] Mj Balderas MD Work Phone: [facility] 09-13-2023 16:21-0400 Heart rate 85 /min Mj Balderas MD Work Phone: [facility] 09-13-2023 16:21-0400 Respiratory rate 20 /min Mj Balderas MD Work Phone: [facility] 09-13-2023 16:21-0400 SaO2% (BldA) [Mass fraction] 95 % Mj Balderas MD Work Phone: [facility] 09-13-2023 16:21-0400 Systolic blood pressure 104 mm[Hg] Mj Balderas MD Work Phone: [facility] 06-03-2023 22:04-0400 Body temperature 97 [degF] [facility] Work Phone: 8(788)441-013012 [place] [address] 06-03-2023 22:04-0400 Diastolic blood pressure 72 mm[Hg] [facility] Work Phone: 1(070)686-764812 [place] [address] 06-03-2023 22:04-0400 Heart rate 102 /min [facility] Work Phone: 6(971)397-770394 [place] [address] 06-03-2023 22:04-0400 Respiratory rate 16 /min [facility] Work Phone: 9(928)601-215094 [place] [address] 06-03-2023 22:04-0400 SaO2% (BldA) [Mass fraction] 96 % [facility] Work Phone: 9(302)060-739761 [address] 06-03-2023 22:04-0400 Systolic blood pressure 120 mm[Hg] [facility] Work Phone: 4(849)745-082794 [place] [address] 06-03-2023 20:26-0400 Body height 167.64 cm [facility] Work Phone: 6(400)821-771694 [place] [address] 06-03-2023 20:26-0400 Body mass index (BMI) [Ratio] 47.7 kg/m2 [facility] Work Phone: 2(698)191-396094 [place] [address] 06-03-2023 20:26-0400 Body weight 134.03 kg [facility] Work Phone: 3(758)695-186194 [place] [address] 05-08-2023 16:48-0400 Body temperature 97.4 [degF] [facility] Work Phone: 7(503)195-094994 [place] [address] 05-08-2023 16:48-0400 Diastolic blood pressure 69 mm[Hg] [facility] Work Phone: 7(390)191-572094 [place] [address] 05-08-2023 16:48-0400 Heart rate 91 /min [facility] Work Phone: 3(081)565-722694 [place] [address] 05-08-2023 16:48-0400 Respiratory rate 18 /min [facility] Work Phone: 7(748)811-711494 [place] [address] 05-08-2023 16:48-0400 SaO2% (BldA) [Mass fraction] 98 % [facility] Work Phone: 9(381)008-242394 [place] [address] 05-08-2023 16:48-0400 Systolic blood pressure 114 mm[Hg] [facility] Work Phone: 2(058)511-537694 [place] [address] 05-08-2023 14:46-0400 Body height 167.64 cm [facility] Work Phone: 5(873)308-716194 [place] [address] 05-08-2023 14:46-0400 Body mass index (BMI) [Ratio] 45.3 kg/m2 [facility] Work Phone: 2(839)983-854494 [place] [address] 05-08-2023 14:46-0400 Body weight 127.5 kg [facility] Work Phone: 0(641)175-095394 [place] [address] 04-08-2023 06:21-0500 Body temperature 98 [degF] [facility] Work Phone: 5(390)684-721194 [place] [address] 04-08-2023 06:21-0500 Diastolic blood pressure 74 mm[Hg] [facility] Work Phone: 1(998)635-269494 [place] [address] 04-08-2023 06:21-0500 Heart rate 94 /min [facility] Work Phone: 4(871)948-717894 [place] [address] 04-08-2023 06:21-0500 Respiratory rate 18 /min [facility] Work Phone: 1(948)076-092994 [place] [address] 04-08-2023 06:21-0500 SaO2% (BldA) [Mass fraction] 99 % [facility] Work Phone: 0(522)584-796594 [place] [address] 04-08-2023 06:21-0500 Systolic blood pressure 143 mm[Hg] [facility] Work Phone: 1(501)785-463394 [place] [address] 04-07-2023 16:02-0500 Body height 167.64 cm [facility] Work Phone: 9(492)357-591794 [place] [address] 04-07-2023 16:02-0500 Body mass index (BMI) [Ratio] 47.3 kg/m2 [facility] Work Phone: 6(277)442-243494 [place] [address] 04-07-2023 16:02-0500 Body weight 133 kg [facility] Work Phone: 8(960)461-043094 [place] [address] 03-20-2023 08:20-0500 Body mass index (BMI) [Ratio] 47 kg/m2 [facility] Work Phone: 0(382)056-112794 [place] [address] 03-20-2023 08:20-0500 Body temperature 98.6 [degF] [facility] Work Phone: 3(685)576-526094 [place] [address] 03-20-2023 08:20-0500 Body weight 131.99 kg [facility] Work Phone: 5(920)875-502894 [place] [address] 03-20-2023 08:20-0500 Diastolic blood pressure 76 mm[Hg] [facility] Work Phone: 9(408)182-805294 [place] [address] 03-20-2023 08:20-0500 Heart rate 80 /min [facility] Work Phone: 8(879)641-655694 [place] [address] 03-20-2023 08:20-0500 Respiratory rate 18 /min [facility] Work Phone: 2(762)255-540194 [place] [address] 03-20-2023 08:20-0500 SaO2% (BldA) [Mass fraction] 97 % [facility] Work Phone: 2(210)424-412894 [place] [address] 03-20-2023 08:20-0500 Systolic blood pressure 112 mm[Hg] [facility] Work Phone: 1(949)105-832594 [place] [address] 12-20-2022 11:29-0400 Body temperature 98.1 [degF] [facility] Work Phone: 0(611)130-858994 [place] [address] 12-20-2022 11:29-0400 Diastolic blood pressure 83 mm[Hg] [facility] Work Phone: 4(610)830-955294 [address] [place] [place] [address] 12-20-2022 11:29-0400 Heart rate 85 /min [facility] Work Phone: 9(042)614-775094 [place] [address] 12-20-2022 11:29-0400 Respiratory rate 12 /min [facility] Work Phone: 7(653)809-363394 [place] [address] 12-20-2022 11:29-0400 SaO2% (BldA) [Mass fraction] 100 % [facility] Work Phone: 4(464)523-512694 [place] [address] 12-20-2022 11:29-0400 Systolic blood pressure 129 mm[Hg] [facility] Work Phone: 3(007)604-592694 [place] [address] 12-18-2022 19:24-0400 Body height 167.64 cm [facility] Work Phone: 7(073)705-248794 [place] [address] 12-18-2022 19:24-0400 Body mass index (BMI) [Ratio] 45.9 kg/m2 [facility] Work Phone: 0(682)415-940694 [place] [address] 12-18-2022 19:24-0400 Body weight 129.1 kg [facility] Work Phone: 3(136)814-401694 [place] [address] 12-18-2022 17:03-0400 Body mass index (BMI) [Ratio] 47.5 kg/m2 [facility] Work Phone: 1(302)797-009394 [place] [address] 12-18-2022 17:03-0400 Body weight 133.4 kg [facility] Work Phone: 7(739)933-739194 [place] [address] 12-18-2022 17:02-0400 Diastolic blood pressure 89 mm[Hg] [facility] Work Phone: 1(548)429-275794 [place] [address] 12-18-2022 17:02-0400 Heart rate 93 /min [facility] Work Phone: 7(645)725-281594 [place] [address] 12-18-2022 17:02-0400 Respiratory rate 17 /min [facility] Work Phone: 2(221)746-898994 [place] [address] 12-18-2022 17:02-0400 SaO2% (BldA) [Mass fraction] 99 % [facility] Work Phone: 1(966)244-309194 [place] [address] 12-18-2022 17:02-0400 Systolic blood pressure 130 mm[Hg] [facility] Work Phone: 2(059)579-190494 [place] [address] 12-18-2022 12:28-0400 Body height 167.64 cm [facility] Work Phone: 0(517)410-243094 [place] [address] 12-18-2022 12:28-0400 Body temperature 97.1 [degF] [facility] Work Phone: 0(492)640-052394 [place] [address] 12-09-2022 20:10-0400 Body temperature 97.8 [degF] [facility] Work Phone: 9(579)932-993494 [place] [address] 12-09-2022 19:31-0400 Body height 170.18 cm [facility] Work Phone: 1(544)584-343794 [place] [address] 12-09-2022 19:31-0400 Body mass index (BMI) [Ratio] 42.9 kg/m2 [facility] Work Phone: 5(113)883-640294 [place] [address] 12-09-2022 19:31-0400 Body weight 124.28 kg [facility] Work Phone: 9(877)659-057394 [place] [address] 12-09-2022 19:31-0400 Diastolic blood pressure 78 mm[Hg] [facility] Work Phone: 2(601)093-478794 [place] [address] 12-09-2022 19:31-0400 Heart rate 98 /min [facility] Work Phone: 7(564)520-893794 [place] [address] 12-09-2022 19:31-0400 Respiratory rate 15 /min [facility] Work Phone: 2(044)909-951294 [place] [address] 12-09-2022 19:31-0400 SaO2% (BldA) [Mass fraction] 100 % [facility] Work Phone: 5(600)952-968694 [place] [address] 12-09-2022 19:31-0400 Systolic blood pressure 130 mm[Hg] [facility] Work Phone: 8(772)658-365094 [place] [address] 11-23-2022 00:02-0400 Body height 167.64 cm [facility] Work Phone: 3(398)244-560694 [place] [address] 11-23-2022 00:02-0400 Body mass index (BMI) [Ratio] 44.4 kg/m2 [facility] Work Phone: 1(888)093-955894 [place] [address] 11-23-2022 00:02-0400 Body weight 125 kg [facility] Work Phone: 1(959)018-969594 [place] [address] 11-22-2022 22:15-0400 Diastolic blood pressure 65 mm[Hg] [facility] Work Phone: 8(571)014-290994 [place] [address] 11-22-2022 22:15-0400 Heart rate 66 /min [facility] Work Phone: 3(516)736-412594 [place] [address] 11-22-2022 22:15-0400 Respiratory rate 18 /min [facility] Work Phone: 8(321)885-441094 [place] [address] 11-22-2022 22:15-0400 SaO2% (BldA) [Mass fraction] 99 % [facility] Work Phone: 2(950)800-833194 [place] [address] 11-22-2022 22:15-0400 Systolic blood pressure 133 mm[Hg] [facility] Work Phone: 5(573)556-302794 [place] [address] 11-22-2022 20:15-0400 Body temperature 97.7 [degF] [facility] Work Phone: 3(057)080-116594 [place] [address] 10-03-2022 08:43-0400 Body height 168.91 cm [facility] Work Phone: 8(354)615-898094 [place] [address] 10-03-2022 08:33-0400 Body mass index (BMI) [Ratio] 47.2 kg/m2 [facility] Work Phone: 5(311)271-623194 [place] [address] 10-03-2022 08:33-0400 Body weight 134.77 kg [facility] Work Phone: 1(772)540-995894 [place] [address] 10-03-2022 08:33-0400 Diastolic blood pressure 76 mm[Hg] [facility] Work Phone: 6(044)296-062894 [place] [address] 10-03-2022 08:33-0400 Systolic blood pressure 124 mm[Hg] [facility] Work Phone: 5(566)835-440094 [place] [address] 09-19-2022 14:44-0400 Diastolic blood pressure 70 mm[Hg] [facility] Work Phone: 8(606)916-301994 [place] [address] 09-19-2022 14:44-0400 Heart rate 107 /min [facility] Work Phone: 8(878)033-946194 [place] [address] 09-19-2022 14:44-0400 Respiratory rate 18 /min [facility] Work Phone: 1(501)742-860994 [place] [address] 09-19-2022 14:44-0400 SaO2% (BldA) [Mass fraction] 98 % [facility] Work Phone: 2(183)640-299594 [place] [address] 09-19-2022 14:44-0400 Systolic blood pressure 142 mm[Hg] [facility] Work Phone: 6(313)760-578294 [place] [address] 09-19-2022 13:10-0400 Body mass index (BMI) [Ratio] 47.3 kg/m2 [facility] Work Phone: 1(114)861-446094 [place] [address] 09-19-2022 13:10-0400 Body weight 135.17 kg [facility] Work Phone: 6(799)714-393094 [place] [address] 08-15-2022 22:13-0400 Diastolic blood pressure 76 mm[Hg] [facility] Work Phone: 8(306)278-892394 [place] [address] 08-15-2022 22:13-0400 Heart rate 80 /min [facility] Work Phone: 5(828)825-355894 [place] [address] 08-15-2022 22:13-0400 Respiratory rate 18 /min [facility] Work Phone: 2(318)813-410194 [place] [address] 08-15-2022 22:13-0400 Systolic blood pressure 128 mm[Hg] [facility] Work Phone: 5(623)782-140994 [place] [address] 08-15-2022 19:01-0400 Body height 170.18 cm [facility] Work Phone: 6(925)167-968494 [place] [address] 08-15-2022 19:01-0400 Body mass index (BMI) [Ratio] 46.5 kg/m2 [facility] Work Phone: 4(577)007-968094 [place] [address] 08-15-2022 19:01-0400 Body temperature 98.2 [degF] [facility] Work Phone: 7(506)166-704194 [place] [address] 08-15-2022 19:01-0400 Body weight 134.76 kg [facility] Work Phone: 9(901)944-220994 [place] [address] 08-15-2022 19:01-0400 SaO2% (BldA) [Mass fraction] 100 % [facility] Work Phone: 3(726)513-626694 [place] [address] 08-08-2022 15:25-0400 Body temperature 98 [degF] [facility] Work Phone: 6(176)537-511594 [place] [address] 08-08-2022 15:25-0400 Diastolic blood pressure 67 mm[Hg] [facility] Work Phone: 1(973)628-524794 [place] [address] 08-08-2022 15:25-0400 Heart rate 83 /min [facility] Work Phone: 2(109)865-573994 [place] [address] 08-08-2022 15:25-0400 Respiratory rate 16 /min [facility] Work Phone: 8(619)647-733594 [place] [address] 08-08-2022 15:25-0400 SaO2% (BldA) [Mass fraction] 100 % [facility] Work Phone: 5(920)477-769494 [place] [address] 08-08-2022 15:25-0400 Systolic blood pressure 118 mm[Hg] [facility] Work Phone: 5(830)889-808494 [place] [address] 08-08-2022 12:47-0400 Body height 170.18 cm [facility] Work Phone: 3(832)544-629594 [place] [address] 08-08-2022 12:47-0400 Body mass index (BMI) [Ratio] 46.4 kg/m2 [facility] Work Phone: 0(019)666-521694 [place] [address] 08-08-2022 12:47-0400 Body weight 134.5 kg [facility] Work Phone: 5(169)437-139594 [place] [address] 02-28-2022 09:11-0500 Body height 170.18 cm [facility] Work Phone: 6(588)406-116694 [place] [address] 02-28-2022 08:59-0500 Body mass index (BMI) [Ratio] 45.6 kg/m2 [facility] Work Phone: 7(018)587-538994 [place] [address] 02-28-2022 08:59-0500 Body weight 132.16 kg [facility] Work Phone: 2(151)212-077894 [place] [address] 02-28-2022 08:59-0500 Diastolic blood pressure 72 mm[Hg] [facility] Work Phone: 3(925)136-231994 [place] [address] 02-28-2022 08:59-0500 Systolic blood pressure 120 mm[Hg] [facility] Work Phone: 1(063)089-560194 [place] [address] 01-24-2022 23:05-0500 Diastolic blood pressure 68 mm[Hg] [facility] Work Phone: 6(584)960-153694 [place] [address] 01-24-2022 23:05-0500 Heart rate 84 /min [facility] Work Phone: 1(046)829-204394 [place] [address] 01-24-2022 23:05-0500 Respiratory rate 17 /min [facility] Work Phone: 4(707)044-403894 [place] [address] 01-24-2022 23:05-0500 SaO2% (BldA) [Mass fraction] 95 % [facility] Work Phone: 0(487)533-544494 [place] [address] 01-24-2022 23:05-0500 Systolic blood pressure 117 mm[Hg] [facility] Work Phone: 0(828)900-000694 [place] [address] 01-24-2022 16:45-0500 Body height 170.18 cm [facility] Work Phone: 0(617)359-269994 [place] [address] Work Phone: 01-24-2022 16:45-0500 Body mass index (BMI) [Ratio] 45.6 kg/m2 [facility] Work Phone: 7(148)131-909394 [place] [address] 01-24-2022 16:45-0500 Body temperature 99 [degF] [facility] Work Phone: 0(756)469-762894 [place] [address] 01-24-2022 16:45-0500 Body weight 131.99 kg [facility] Work Phone: 3(160)170-451394 [place] [address] 01-15-2022 15:27-0500 Diastolic blood pressure 80 mm[Hg] [facility] Work Phone: 3(045)633-886512 [place] [address] 01-15-2022 15:27-0500 Heart rate 100 /min [facility] Work Phone: 3(454)608-669594 [place] [address] 01-15-2022 15:27-0500 Respiratory rate 17 /min [facility] Work Phone: 4(949)944-040194 [place] [address] 01-15-2022 15:27-0500 SaO2% (BldA) [Mass fraction] 97 % [facility] Work Phone: 3(343)877-186794 [place] [address] 01-15-2022 15:27-0500 Systolic blood pressure 124 mm[Hg] [facility] Work Phone: 6(639)910-660094 [place] [address] 01-15-2022 12:14-0500 Body mass index (BMI) [Ratio] 45.4 kg/m2 [facility] Work Phone: 8(186)804-988494 [place] [address] 01-15-2022 12:14-0500 Body temperature 98.2 [degF] [facility] Work Phone: 6(979)729-278294 [place] [address] 01-15-2022 12:14-0500 Body weight 131.54 kg [facility] Work Phone: 3(749)494-115194 [place] [address] 12-12-2021 16:21-0400 Body temperature 99 [degF] Mj Balderas MD Work Phone: [facility] 12-12-2021 16:21-0400 Body weight 130.64 kg Mj Balderas MD Work Phone: [facility] 12-12-2021 16:21-0400 Diastolic blood pressure 78 mm[Hg] Mj Balderas MD Work Phone: [facility] 12-12-2021 16:21-0400 Heart rate 120 /min Mj Balderas MD Work Phone: [facility] 12-12-2021 16:21-0400 Respiratory rate 18 /min Mj Balderas MD Work Phone: [facility] 12-12-2021 16:21-0400 SaO2% (BldA) [Mass fraction] 99 % Mj Balderas MD Work Phone: [facility] 12-12-2021 16:21-0400 Systolic blood pressure 118 mm[Hg] jM Balderas MD Work Phone: [facility] 09-28-2021 09:12-0400 Body height 170.18 cm [facility] Work Phone: [facility] Work Phone: 09-28-2021 09:11-0400 Body mass index (BMI) [Ratio] 43.8 kg/m2 [facility] Work Phone: [facility] Work Phone: 09-28-2021 09:11-0400 Body weight 127 kg [facility] Work Phone: [facility] Work Phone: 09-28-2021 09:11-0400 Diastolic blood pressure 80 mm[Hg] [facility] Work Phone: [facility] Work Phone: 09-28-2021 09:11-0400 Systolic blood pressure 110 mm[Hg] [facility] Work Phone: [facility] Work Phone: 09-10-2021 12:35-0400 Diastolic blood pressure 75 mm[Hg] [facility] Work Phone: [facility] Work Phone: 09-10-2021 12:35-0400 Heart rate 82 /min [facility] Work Phone: [facility] Work Phone: 09-10-2021 12:35-0400 Respiratory rate 15 /min [facility] Work Phone: [facility] Work Phone: 09-10-2021 12:35-0400 SaO2% (BldA) [Mass fraction] 98 % [facility] Work Phone: [facility] Work Phone: 09-10-2021 12:35-0400 Systolic blood pressure 146 mm[Hg] [facility] Work Phone: [facility] Work Phone: 09-10-2021 09:41-0400 Body temperature 98.9 [degF] [facility] Work Phone: [facility] Work Phone: 09-10-2021 02:42-0400 Body height 170.18 cm [facility] Work Phone: [facility] Work Phone: 09-10-2021 02:42-0400 Body mass index (BMI) [Ratio] 42.9 kg/m2 [facility] Work Phone: [facility] Work Phone: 09-10-2021 02:42-0400 Body weight 124.31 kg [facility] Work Phone: [facility] Work Phone: 09-03-2021 10:52-0400 Body height 170.18 cm [facility] Work Phone: [facility] Work Phone: 09-03-2021 10:52-0400 Body mass index (BMI) [Ratio] 42.3 kg/m2 [facility] Work Phone: [facility] Work Phone: 09-03-2021 10:52-0400 Body temperature 97.9 [degF] [facility] Work Phone: [facility] Work Phone: 09-03-2021 10:52-0400 Body weight 122.46 kg [facility] Work Phone: [facility] Work Phone: 09-03-2021 10:52-0400 Diastolic blood pressure 80 mm[Hg] [facility] Work Phone: [facility] Work Phone: 09-03-2021 10:52-0400 Heart rate 73 /min [facility] Work Phone: [facility] Work Phone: 09-03-2021 10:52-0400 Respiratory rate 16 /min [facility] Work Phone: [facility] Work Phone: 09-03-2021 10:52-0400 SaO2% (BldA) [Mass fraction] 97 % [facility] Work Phone: [facility] Work Phone: 09-03-2021 10:52-0400 Systolic blood pressure 116 mm[Hg] [facility] Work Phone: [facility] Work Phone: 08-29-2021 22:32-0400 Diastolic blood pressure 74 mm[Hg] [facility] Work Phone: [facility] Work Phone: 08-29-2021 22:32-0400 Heart rate 102 /min [facility] Work Phone: [facility] Work Phone: 08-29-2021 22:32-0400 Respiratory rate 15 /min [facility] Work Phone: [facility] Work Phone: 08-29-2021 22:32-0400 SaO2% (BldA) [Mass fraction] 99 % [facility] Work Phone: [facility] Work Phone: 08-29-2021 22:32-0400 Systolic blood pressure 135 mm[Hg] [facility] Work Phone: [facility] Work Phone: 08-29-2021 18:19-0400 Body height 170.18 cm [facility] Work Phone: [facility] Work Phone: 08-29-2021 18:19-0400 Body mass index (BMI) [Ratio] 44.9 kg/m2 [facility] Work Phone: [facility] Work Phone: 08-29-2021 18:19-0400 Body temperature 98.3 [degF] [facility] Work Phone: [facility] Work Phone: 08-29-2021 18:19-0400 Body weight 130.18 kg [facility] Work Phone: [facility] Work Phone: 08-16-2021 19:45-0400 Body height 170.18 cm [facility] Work Phone: [facility] Work Phone: 08-16-2021 19:45-0400 Body mass index (BMI) [Ratio] 44.6 kg/m2 [facility] Work Phone: [facility] Work Phone: 08-16-2021 19:45-0400 Body temperature 98 [degF] [facility] Work Phone: [facility] Work Phone: 08-16-2021 19:45-0400 Body weight 129.3 kg [facility] Work Phone: [facility] Work Phone: 08-16-2021 19:45-0400 Diastolic blood pressure 86 mm[Hg] [facility] Work Phone: [facility] Work Phone: 08-16-2021 19:45-0400 Heart rate 98 /min [facility] Work Phone: [facility] Work Phone: 08-16-2021 19:45-0400 Respiratory rate 14 /min [facility] Work Phone: [facility] Work Phone: 08-16-2021 19:45-0400 SaO2% (BldA) [Mass fraction] 95 % [facility] Work Phone: [facility] Work Phone: 08-16-2021 19:45-0400 Systolic blood pressure 178 mm[Hg] [facility] Work Phone: [facility] Work Phone: 08-08-2021 08:10-0400 Body mass index (BMI) [Ratio] 44.5 kg/m2 [facility] Work Phone: [facility] Work Phone: 08-08-2021 08:10-0400 Body weight 129.04 kg [facility] Work Phone: [facility] Work Phone: 08-08-2021 08:10-0400 Diastolic blood pressure 86 mm[Hg] [facility] Work Phone: [facility] Work Phone: 08-08-2021 08:10-0400 Systolic blood pressure 138 mm[Hg] [facility] Work Phone: [facility] Work Phone: 12-14-2020 20:47-0400 Heart rate 76 /min CHRIS BURK DO [facility] 12-14-2020 20:47-0400 Respiratory rate 18 /min CHRIS BURK DO [facility] 12-14-2020 18:35-0400 Body temperature 98.42 [degF] CHRIS BURK DO [facility] 12-14-2020 18:35-0400 Body weight 118.2 kg CHRIS BURK DO [facility] 12-14-2020 18:35-0400 Diastolic blood pressure 84 mm[Hg] CHRIS BURK DO [facility] 12-14-2020 18:35-0400 Heart rate 78 /min CHRIS BURK DO [facility] 12-14-2020 18:35-0400 Respiratory rate 18 /min CHRIS BURK DO [facility] 12-14-2020 18:35-0400 Systolic blood pressure 139 mm[Hg] CHRIS BURK DO [facility] Encounters Encounter Date Encounter Type Care Provider Facility Start: 08-28-2024 End: 08-28-2024 Telephone encounter Arsenio BOBBY Endocrinology Comment on above: Ambulatory [facility] Start: 08-26-2024 End: 08-26-2024 ambulatory Maria Elena [employer] Work Phone: Endocrinology Start: 08-07-2024 End: 08-07-2024 ambulatory Naina Da Silva [employer] Work Phone: [facility] Work Phone: Start: 08-07-2024 End: 08-07-2024 Patient encounter procedure Andreas Oliva DO [facility] Work Phone: Start: 08-07-2024 End: 08-07-2024 ambulatory Andreas Oliva Facility:[facility] Start: 08-01-2024 End: 08-01-2024 [facility] Laura Carson PhD Work Phone: Endocrinology Comment on above: Obesity, Class III, BMI 40-49.9 (morbid obesity) (HCC) (Primary Dx); Binge eating disorder, moderate; Bipolar affective disorder, currently depressed, mild (HCC); Generalized anxiety disorder Start: 07-24-2024 End: 07-24-2024 Patient encounter procedure Shawanda CROWDERC -[facility] Work Phone: Start: 07-24-2024 End: 07-24-2024 ambulatory Naina CROWDERC Work Phone: [facility] Work Phone: Start: 07-15-2024 End: 07-15-2024 Patient encounter procedure Jey Johnson MD Work Phone: Endocrinology Comment on above: PCOS (polycystic ova sivakumar syndrome) [E28.2] (Primary Dx) Start: 07-15-2024 End: 07-15-2024 ambulatory JEY JOHNSON Facility:[facility] Start: 07-08-2024 End: 07-08-2024 Patient encounter procedure Andreas Oliva -[facility] Work Phone: Start: 07-08-2024 End: 07-08-2024 ambulatory Naina CROWDERC Work Phone: [facility] Work Phone: Start: 06-24-2024 End: 06-27-2024 Refill Jey Johnson MD Work Phone: Endocrinology Comment on above: Refill Request Start: 06-20-2024 Non-patient / Non-visit Dr. Ozzy Greco MD -[facility] Start: 06-20-2024 End: 06-20-2024 ambulatory Naina CROWDERC Work Phone: [facility] Work Phone: Start: 06-20-2024 End: 06-20-2024 Patient encounter procedure Shawanda CROWDERC -[facility] Work Phone: Start: 06-20-2024 End: 06-20-2024 ambulatory Zebuluadalgisa Beam VSC Facility:[facility] Start: 06-10-2024 Patient encounter status Naina CROWDERC Work Phone: [facility] Start: 06-10-2024 End: 06-10-2024 Patient encounter procedure Zebulun Beam [employer] -[facility], Daniel Tierney Start: 06-10-2024 End: 06-10-2024 ambulatory Karuna Lim [facility] Facility:[facility] Start: 06-05-2024 Non-patient / Non-visit Dr. Marco Bartlett MD -[facility] Work Phone: Start: 06-05-2024 ambulatory Shawanda Ramires Facility: [facility] Start: 06-05-2024 Registered Referred Shawanda Ramires [employer] -Cardi[facility] Services Work Phone: Start: 06-03-2024 End: 06-03-2024 Emergency department patient visit Naina Da Silva [employer] Work Phone: -Emergency Department Work Phone: Start: 06-03-2024 End: 06-03-2024 ambulatory Naina Da Silva [employer] Work Phone: [facility] Work Phone: Start: 06-03-2024 End: 06-03-2024 Patient encounter procedure Karuna Lim [employer] -[facility] Work Phone: Start: 06-02-2024 End: 06-02-2024 Emergency department patient visit Naina Da Silva NP-C Work Phone: -Emergency Department Work Phone: Start: 06-02-2024 End: 06-03-2024 [facility] Laura Carson PhD Work Phone: Endocrinology Comment on above: Bipolar affective di sorder, currently depressed, mild (HCC) (Primary Dx); Obesity, Class III, BMI 40-49.9 (morbid obesity) (HCC); Binge eating disorder, moderate; Generalized anxiety disorder Start: 05-29-2024 End: 05-29-2024 Patient encounter procedure Shawanda Ramires [employer] -[facility] Work Phone: Start: 05-29-2024 End: 05-29-2024 ambulatory Naina Da Silva VSC [facility] Start: 05-23-2024 End: 05-23-2024 ambulatory Naina Da Silva [employer] Work Phone: [facility] Work Phone: Start: 05-23-2024 End: 05-23-2024 Patient encounter procedure Karinaadalgisa Guerra [employer] -Laboratory Work Phone: Start: 05-23-2024 End: 05-23-2024 ambulatory Karuna Lim [place] [facility] Start: 05-16-2024 End: 05-16-2024 [facility] Swapna STEVENSON, PhD Work Phone: Endocrinology Comment on above: Obesity, Class III, BMI 40-49.9 (morbid obesity) ([facility]) (Primary Dx); Type 2 diabetes mellitus with other specified complication, without long-term current use of insulin (HCC); Primary hypertension; Binge eating disorder, moderate; Hypercholesterolemia; Gastroparesis; Steatosis of liver; 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 MANAGER CORPORATE COMMUNICATIONS-C Work Phone: -Emergency Department Work Phone: Start: 05-07-2024 End: 05-07-2024 ambulatory Naina Da Silva SR. MANAGER CORPORATE COMMUNICATIONS-C Work Phone: [facility] Work Phone: Start: 05-07-2024 End: 05-07-2024 Patient encounter procedure Karuna Lim NP-C -LaboratoryDaniel Start: 05-07-2024 End: 05-07-2024 ambulatory Naina Da Silva [facility] Facility:[facility] Start: 04-22-2024 End: 04-22-2024 ambulatory Naina Da Silva NP-C Work Phone: [facility] Work Phone: Start: 04-22-2024 End: 04-22-2024 Patient encounter procedure Karuna CROWDERC -LaboratoryDaniel Start: 04-22-2024 End: 04-22-2024 ambulatory [facility] Facility:[facility] Start: 04-15-2024 End: 04-15-2024 Follow-up encounter Ramón HICKEY Work Phone: [facility] Start: 04-15-2024 End: 04-15-2024 ambulatory JEY JOHNSON Facility:[facility] Start: 04-15-2024 End: 04-15-2024 Patient encounter procedure Jey Johnson MD Work Phone: Endocrinology Comment on above: Obesity, Class III, BMI 40-49.9 (morbid obesity) (HCC) (Primary Dx); PCOS (polycystic ovarian syndrome) Start: 04-14-2024 End: 04-14-2024 ambulatory [facility] Facility:[facility] Start: 04-14-2024 End: 04-14-2024 Office outpatient visit 15 minutes Mj Balderas MD Work Phone: [facility] Comment on above: Influenza-like illne ss (Primary Dx) Start: 02-25-2024 End: 02-25-[address] Work Phone: Endocrinology Comment on above: PCOS (polycystic ova sivakumar syndrome) (Primary Dx); Obesity, Class III, BMI 40-49.9 (morbid obesity) (HCC) Start: 02-25-2024 End: 02-25-2024 Telemedicine consultation with patient Carissa Sherwood RD Work Phone: Endocrinology Start: 02-05-2024 End: 02-05-2024 Patient encounter procedure Karuna CROWDERC -LaboratoryDaniel Start: 02-05-2024 End: 02-05-2024 ambulatory [facility] Facility:[facility] Start: 01-25-2024 End: 01-25-2024 Telephone encounter Mallika Mo APRN.INTERNAL COMBUSTION ENGINEER Work Phone: [facility] Comment on above: Results Start: 01-25-2024 End: 01-25-2024 Patient encounter procedure Louis Mohan STATON.INTERNAL COMBUSTION ENGINEER Work Phone: [facility] Comment on above: Acute otitis media, left (Primary Dx); Acute otitis externa of left ear, unspecified type Start: 01-25-2024 End: 01-25-2024 ambulatory [facility] Facility:[facility] Start: 01-24-2024 End: 01-24-2024 ambulatory [facility] Facility:[facility] Start: 01-24-2024 End: 01-24-2024 Patient encounter procedure Ramón HICKEY Work Phone: [facility] Comment on above: Sore throat (Primary Dx); URI, acute Start: 01-14-2024 End: 01-14-[address] Marco Bartlett MD -[facility] Work Phone: Start: 01-14-2024 End: 01-14-2024 ambulatory Naina Avinash [facility] Start: 01-08-2024 End: 01-08-2024 ambulatory JEY JOHNSON Facility:[facility] Start: 01-08-2024 End: 01-08-2024 Patient encounter procedure Jey Johnson MD Work Phone: Endocrinology Comment on above: PCOS (polycystic ova sivaukmar syndrome) (Primary Dx); Obesity, Class III, BMI 40-49.9 (morbid obesity) ([facility]) Start: 12-31-2023 End: 12-31-2023 Bamboo flowsheet Stefania Lake SR. MANAGER CORPORATE COMMUNICATIONS Work Phone: [facility] Start: 12-31-2023 End: 12-31-2023 Bamboo flowsheet Stefania Lake SR. MANAGER CORPORATE COMMUNICATIONS Work Phone: [facility] Start: 12-31-2023 End: 12-31-2023 Office outpatient visit 25 minutes Stefania Lake SR. MANAGER CORPORATE COMMUNICATIONS Work Phone: [facility] Comment on above: Morbid obesity with BMI of 45.0-49.9, adult (CMS/HCC) (Primary Dx); Chronic migraine without aura, intractable, without status migrainosus (CMS/HCC) Start: 12-31-2023 End: 12-31-2023 ambulatory [place] Not Available Start: 12-19-2023 End: 12-19-2023 Telephone encounter Jey Johnson MD Work Phone: Endocrinology Comment on above: Release Of Medical R ecords Start: 12-19-2023 End: 12-19-2023 ambulatory [facility] Facility[facility] Start: 12-06-2023 End: 12-17-2023 Refill Stefania Wallace Aleksandra SR. MANAGER CORPORATE COMMUNICATIONS Work Phone: [facility] Comment on above: Chronic migraine wit hout aura, intractable, without status migrainosus (CMS/HCC) Start: 12-05-2023 End: 12-05-2023 ambulatory JEY JOHNSON Facility:[facility] Start: 11-27-2023 End: 11-27-2023 Emergency department patient visit [facility] Facility[facility] Start: 11-27-2023 End: 11-27-2023 [facility] Start: 11-27-2023 End: 11-27-2023 Patient encounter procedure Louis Schmidt APRN.INTERNAL COMBUSTION ENGINEER Work Phone: [facility] Comment on above: Pain (Primary Dx) Start: 11-21-2023 End: 11-21-2023 ambulatory [facility] Facility[facility] Start: 11-13-2023 Encounter for other preprocedural examination Andreas Oliva [facility] Start: 10-26-2023 End: 10-26-2023 ambulatory JEYKIESHA JOHNSON Facility:[facility] Start: 10-26-2023 End: 10-26-2023 Patient encounter procedure Jey Johnson MD Work Phone: Endocrinology Comment on above: PCOS (polycystic ova sivakumar syndrome) (Primary Dx); Obesity, Class III, BMI 40-49.9 (morbid obesity) (HCC) Start: 2023 End: 2023 ambulatory [facility] Facility[facility] Start: 10-19-2023 End: 10-19-2023 ambulatory [facility] Start: 10-17-2023 Encounter for gynecological examination (general) (routine) with abnormal findings Zeus Miller NP [facility] Start: 10-17-2023 End: 10-17-2023 ambulatory [facility] Facility:[facility] Start: 10-15-2023 End: 10-15-2023 ambulatory [facility] Facility[facility] Start: 10-12-2023 End: 10-12-2023 ambulatory [facility] Facility[facility] Start: 10-10-2023 End: 10-10-2023 ambulatory [facility] Facility[facility] Start: 10-10-2023 End: 10-10-2023 ambulatory [facility] Facility[facility] Start: 10-08-2023 End: 10-08-2023 ambulatory [facility] Facility[facility] Start: 10-05-2023 End: 10-05-2023 ambulatory [facility] Start: 10-03-2023 End: 10-03-2023 ambulatory [facility] Facility:[facility] Start: 09-23-2023 End: 09-24-2023 Emergency department patient visit [facility] Facility[facility] Start: 09-13-2023 End: 09-13-2023 ambulatory [facility] Facility:[facility] Start: 09-13-2023 End: 09-13-2023 Patient encounter procedure Mj Balderas MD Work Phone: [facility] Comment on above: Impacted cerumen of left ear (Primary Dx) Start: 06-03-2023 End: 06-03-2023 Emergency department patient visit [facility] Work Phone: [facility]-Emergency Department Work Phone: Start: 05-29-2023 End: 05-29-2023 ambulatory [place] Not Available Start: 05-08-2023 End: 05-08-2023 Emergency department patient visit [facility] Work Phone: [facility]-Emergency Department Work Phone: Start: 05-08-2023 End: 05-08-2023 Patient encounter procedure Louis Schmidt APRN.[facility] Work Phone: [facility] Comment on above: Dizziness (Primary D x); Headache, unspecified headache type Start: 04-08-2023 End: 04-14-2023 Evaluation and management of inpatient [facility] Start: 04-07-2023 End: 04-08-2023 Emergency department patient visit [facility] Work Phone: [facility]-Emergency Department Work Phone: Start: 03-20-2023 End: 03-20-2023 Patient encounter procedure [facility] Work Phone: [facility] Work Phone: Start: 02-06-2023 End: 02-06-2023 ambulatory [facility] Work Phone: [facility] Work Phone: Start: 02-06-2023 End: 02-06-2023 Patient encounter procedure [facility] Work Phone: [facility] Work Phone: Start: 01-30-2023 End: 01-30-2023 ambulatory [facility] Work Phone: [facility] Work Phone: Start: 01-30-2023 End: 01-30-2023 Patient encounter procedure [facility] Work Phone: [facility] Work Phone: Start: 01-29-2023 End: 01-29-2023 ambulatory [facility] Work Phone: [facility] Work Phone: Start: 01-29-2023 End: 01-29-2023 Discharged Recurring [facility] Work Phone: [facility]-Physical Therapy Work Phone: Start: 12-20-2022 Non-patient / Non-visit [facility] Work Phone: [facility] Work Phone: Start: 12-19-2022 End: 12-20-2022 Evaluation and management of inpatient [facility] Work Phone: [facility]-Progressive Care Unit Work Phone: Start: 12-19-2022 Non-patient / Non-visit [facility] Work Phone: [facility] Work Phone: Start: 12-19-2022 Non-patient / Non-visit [facility] Work Phone: [facility] Start: 12-18-2022 Non-patient / Non-visit [facility] Work Phone: [facility] Work Phone: Start: 12-18-2022 End: 12-20-2022 Evaluation and management of inpatient [facility] Work Phone: [facility]-Progressive Care Unit Work Phone: Start: 12-18-2022 observation encounter [facility] Work Phone: [facility] Work Phone: Start: 12-12-2022 End: 12-12-2022 ambulatory [facility] Work Phone: [facility] Work Phone: Start: 12-12-2022 End: 12-12-2022 Patient encounter procedure [facility] Work Phone: [facility]-Laboratory Work Phone: Start: 12-09-2022 End: 12-09-2022 Emergency department patient visit [facility] Work Phone: [facility]-Emergency Department Work Phone: Start: 12-04-2022 End: 12-04-2022 Emergency department patient visit VANI CARLSON RETAIL ASSOCIATE-[facility] Facility:B Start: 11-22-2022 End: 11-23-2022 Emergency department patient visit [facility] Work Phone: [facility]-Emergency Department Work Phone: Start: 11-07-2022 End: 11-07-2022 ambulatory [facility] Work Phone: [facility] Work Phone: Start: 11-07-2022 End: 11-07-2022 Patient encounter procedure [facility] Work Phone: [facility] Work Phone: Start: 10-03-2022 End: 10-03-2022 Patient encounter procedure [facility] Work Phone: [facility]-Laboratory, Specimen Work Phone: Start: 10-03-2022 End: 10-03-2022 Patient encounter procedure [facility] Work Phone: [facility] Work Phone: Start: 09-19-2022 End: 09-19-2022 Patient encounter procedure [facility] Work Phone: [facility] Work Phone: Start: 08-29-2022 End: 08-29-2022 Patient encounter procedure [facility] Work Phone: [facility] Work Phone: Start: 08-15-2022 End: 08-15-2022 Emergency department patient visit [facility] Work Phone: [facility]-Emergency Department Start: 08-08-2022 Non-patient / Non-visit [facility] Work Phone: [facility] Start: 08-08-2022 End: 08-08-2022 Admission to same day surgery center [facility] Work Phone: [facility]-Endoscopy Start: 08-08-2022 End: 08-08-2022 ambulatory [facility] Work Phone: [facility] Work Phone: Start: 06-06-2022 End: 06-06-2022 Patient encounter procedure [facility] Work Phone: [facility] Start: 03-15-2022 End: 03-15-2022 ambulatory [facility] Work Phone: [facility] Work Phone: Start: 03-15-2022 End: 03-15-2022 Patient encounter procedure [facility] Work Phone: [facility]-Nuclear Medicine, [facility] Start: 03-07-2022 End: 03-07-2022 ambulatory [facility] Work Phone: [facility] Work Phone: Start: 03-07-2022 End: 03-07-2022 Patient encounter procedure [facility] Work Phone: [facility]-Ultrasound, [facility] Start: 02-28-2022 End: 02-28-2022 Patient encounter procedure [facility] Work Phone: [facility] Start: 02-17-2022 End: 02-17-2022 ambulatory [facility] Work Phone: [facility] Work Phone: Start: 02-17-2022 End: 02-17-2022 Patient encounter procedure [facility] Work Phone: [facility]-Laboratory, Specimen Start: 02-15-2022 End: 02-15-2022 Patient encounter procedure [facility] Work Phone: [facility] Start: 01-31-2022 End: 01-31-2022 ambulatory [facility] Work Phone: Start: 01-31-2022 End: 01-31-2022 Patient encounter procedure [facility]-Laboratory Start: 01-24-2022 End: 01-24-2022 Emergency department patient visit [facility] Work Phone: [facility]-Emergency Department Start: 01-15-2022 End: 01-15-2022 Emergency department patient visit [facility] Work Phone: [facility]-Emergency Department Start: 12-14-2021 End: 12-14-2021 ambulatory [facility] Work Phone: [facility] Work Phone: Start: 12-14-2021 End: 12-14-2021 Patient encounter procedure [facility] Work Phone: [facility] Start: 12-12-2021 End: 12-12-2021 Patient encounter procedure Mj Balderas MD Work Phone: [facility] Comment on above: Dental infection (Pr imary Dx) Start: 11-30-2021 End: 11-30-2021 Patient encounter procedure [facility] Work Phone: [facility] Start: 09-28-2021 End: 09-28-2021 Patient encounter procedure [facility] Work Phone: [facility] Start: 09-27-2021 End: 09-27-2021 Patient encounter procedure [facility] Work Phone: [facility]-Laboratory Start: 09-10-2021 End: 09-10-2021 Emergency department patient visit [facility] Work Phone: [facility]-Emergency Department Start: 09-03-2021 End: 09-03-2021 Emergency department patient visit [facility] Work Phone: [facility]-Emergency Department Start: 09-03-2021 End: 09-03-2021 Patient encounter procedure Mj Balderas MD Work Phone: [facility] Comment on above: Nausea and vomiting, unspecified vomiting type (Primary Dx); Dizziness Start: 08-31-2021 End: 08-31-2021 Patient encounter procedure [facility] Work Phone: [facility]-Laboratory Start: 08-29-2021 End: 08-29-2021 Emergency department [facility] Start: 08-24-2021 End: 08-24-2021 [facility] encounter [facility] Start: 08-16-2021 End: 08-16-2021 Emergency department patient visit [facility] Work Phone: [facility]-Emergency Department Start: 08-08-2021 End: 08-08-2021 Patient encounter procedure [facility] Work Phone: [facility] Start: 06-27-2021 End: 06-27-2021 [facility] Start: 12-14-2020 End: 12-14-2020 Emergency department patient visit CHRIS JOSESUSAN STEVENSON [facility] Start: 01-07-2020 End: 01-07-2020 Subsequent hospital visit by physician [facility] Work Phone: Radiology Comment on above: Foot pain, left [[id number] .[id number]] Start: 01-31-2017 End: 01-31-2017 Ambulatory SOMMER LECHUGA [facility] Start: 11-24-2016 Ambulatory Mohan Pacheco [facility] Start: 09-18-2016 End: 09-19-2016 Ambulatory DELMI NANCE [facility] Procedures Date Procedure Procedure Detail Performing Clinician Start: 08-07-2024 MRI of abdomen with contrast Naina Da Silva SR. MANAGER CORPORATE COMMUNICATIONS-C Work Phone: Start: 06-03-2024 Estimated creatinine clearance Naina Da Silva SR. MANAGER CORPORATE COMMUNICATIONS-C Work Phone: Start: 06-03-2024 CT angiography of ch est with contrast Naina Da Silva SR. MANAGER CORPORATE COMMUNICATIONS-C Work Phone: Start: 06-03-2024 CT angiography of he ad and neck Naina Da Silva SR. MANAGER CORPORATE COMMUNICATIONS-C Work Phone: Start: 06-03-2024 Ultrasonography of abdomen Naina Da Silva SR. MANAGER CORPORATE COMMUNICATIONS-C Work Phone: Start: 05-23-2024 [place] measurement Niurka Da Silva SR. MANAGER CORPORATE COMMUNICATIONS-C Work Phone: Start: 05-14-2024 Estimated creatinine clearance Naina Avinash SR. MANAGER CORPORATE COMMUNICATIONS-C Work Phone: Start: 05-14-2024 Plain chest X-ray Jennifer mitchell Avinash SR. MANAGER CORPORATE COMMUNICATIONS-C Work Phone: Start: 05-08-2024 Computed tomography of abdomen and pelvis with intravenous contrast Naina Avinash SR. MANAGER CORPORATE COMMUNICATIONS-C Work Phone: Start: 05-08-2024 Estimated creatinine clearance Naina Da Silva SR. MANAGER CORPORATE COMMUNICATIONS-C Work Phone: Start: 05-08-2024 Urnls dip stick/tabl et reagent auto microscopy Naina Avinash SR. MANAGER CORPORATE COMMUNICATIONS-C Work Phone: Start: 02-05-2024 Urine culture Naina Shabnam borges SR. MANAGER CORPORATE COMMUNICATIONS-C Work Phone: Start: 01-24-2024 STREP A MOLECULAR (POC) Ramón HICKEY Work Phone: Start: 06-03-2023 Plain chest X-ray [facility] Work Phone: Start: 05-08-2023 Plain chest X-ray [facility] Work Phone: Start: 05-08-2023 CT of head without contrast [facility] Work Phone: Start: 05-08-2023 SARS-CoV-2, Influenz a & RSV (PCR) [facility] Work Phone: Start: 04-07-2023 Coronavirus COVID-19 PCR [facility] Work Phone: Start: 02-06-2023 Ultrasound elastogra phy of liver [facility] Work Phone: Start: 12-18-2022 Plain chest X-ray [facility] Work Phone: Start: 12-18-2022 CT of head without contrast [facility] Work Phone: Start: 12-09-2022 Urine culture [facility] Work Phone: Start: 11-07-2022 MRI of brain without contrast [facility] Work Phone: Start: 09-19-2022 MRI of small intestine [facility] Work Phone: Start: 08-08-2022 Colonoscopy [facility] Work Phone: Start: 03-15-2022 Radionuclide gastric emptying study [facility] Work Phone: Start: 03-07-2022 Pelvic echography [facility] Work Phone: Start: 03-07-2022 Ultrasonography of abdomen [facility] Work Phone: Start: 03-07-2022 Ultrasound elastography [facility] Work Phone: Start: 01-24-2022 Computed tomography of abdomen and pelvis with intravenous contrast [facility] Work Phone: Start: 01-15-2022 Plain chest X-ray [facility] Work Phone: Start: 12-14-2021 MRI of brain with contrast [facility] Work Phone: Start: 11-30-2021 CT of abdomen [facility] Work Phone: Start: 08-16-2021 Radiography of ankle Vi [facility] Work Phone: Start: 08-16-2021 Radiologic examinati on of knee [facility] Work Phone: Start: 08-16-2021 X-ray of both feet [facility] Work Phone: Start: 01-07-2020 Radex ankle complete minimum 3 views Clay Tinsley APRN.INTERNAL COMBUSTION ENGINEER Work Phone: Cytopathology proced ure, preparation of smear, genital source [facility] Work Phone: Investigation of tra nsfusion reaction [facility] Work Phone: Lactoferrin measurement [facility] Work Phone: Lactoferrin measurement [facility] Work Phone: Ova OR parasites identification Ova OR parasites identification [facility] Work Phone: Spinal arthrodesis CHRIS CLARK DO Viral antigen assay [facility] Work Phone: Plan of Treatment Date Care Activity Detail Author Start: 07-15-2025 BP Controlled (<130/80) BP Controlled (<130/80) [facility] Start: 10-20-2024 Influenza vaccination [facility] Start: 10-16-2024 End: 10-16-2024 Patient encounter procedure 10/16/2024 10:20 AM EDT Office Visit Endocrinology [address] [place] [address] Jey Johnson MD [address] [place] [address] 3 month f/u-PCOS Endocrinology Comment on above: 3 month f/u-PCOS Start: 09-26-2024 End: 09-26-2024 Follow-up encounter Endocrinology Comment on above: Can you please schedule this patient for a follow up virtual visit on September 26 at 1:30. Start: 08-26-2024 End: 08-26-2024 ambulatory 08/26/2024 1:00 PM EDT [facility] Patient Outreach Endocrinology [address] [place] [address] Maria Elena Savage, Pump Installation And Servicer [address] [place] [address] Ways to loose weight with other medical issues. Endocrinology Comment on above: Ways to loose weight with other medical issues. Start: 08-01-2024 End: 08-01-2024 Follow-up encounter 08/01/2024 12:15 PM EDT [facility] Endocrinology [id number] [place] [address] Laura Carson, PhD [address] [place] [id number] follow up virtual visit on August 01 at 12:15. Endocrinology Comment on above: follow up virtual visit on August 01 at 12:15. Start: 07-15-2024 End: 07-15-2024 Patient encounter procedure 07/15/2024 10:40 AM EDT Office Visit Endocrinology [address] [place], [place] [id number] Jey Johnson MD [address] [place], [place] [id number] 3 MTH F/U-PCOS Endocrinology Comment on above: 3 MTH F/U-PCOS Start: 06-27-2024 End: 06-27-2024 Telemedicine consultation with patient 06/27/2024 10:00 AM EDT Telemedicine [facility] [address] [place] [id number] Stefania Lake, SR. MANAGER CORPORATE COMMUNICATIONS [address] [place] [address] [facility] Start: 06-04-2024 Hemoglobin A1c measurement HbA1C [facility] Start: 06-03-2024 Us abdominal real time w/image limited ECHO EXAM OF ABDOMEN [facility] Start: 06-03-2024 End: 06-03-2024 [facility] Start: 05-16-2024 End: 05-16-2024 ambulatory 05/16/2024 8:40 AM EDT [facility] Endocrinology [address] [place] [address] Huey Snyder DO, PhD [address] [place] [address] ENDOCRINE WEIGHT Endocrinology Comment on above: ENDOCRINE WEIGHT Start: 05-15-2024 [facility] [facility] Start: 05-14-2024 End: 05-14-2024 [facility] Start: 05-08-2024 [facility] Start: 04-15-2024 End: 04-15-2024 Patient encounter procedure Endocrinology Comment on above: 3 month f/u 3 month f/u PCOS, me ds Start: 04-09-2024 Hepatitis B surface antibody level LDL Cholesterol [facility] Start: 01-31-2024 End: 01-31-2024 ambulatory 01/31/2024 9:00 AM EST [facility] [address] [place], [place] [id number] Carissa Sherwood RD [address] [phone] PCOS (polycystic ovarian syndrome) [E28.2]; Obesity, Class III, BMI 40-49.9 (morbid obesity) (HCC) [E66.01] Endocrinology Comment on above: PCOS (polycystic ovarian syndrome) [E28. 2]; Obesity, Class III, BMI 40-49.9 (morbid obesity) (HCC) [E66.01] Start: 01-25-2024 End: 04-25-2024 Fasting glucose [Mass/volume] in Serum or Plasma GLUCOSE, FASTING Lab Routine PCOS (polycystic ovarian syndrome) Expected: 01/25/2024, Expires: 04/25/[address] [facility] Comment on above: Expected: 01/25/2024, Expires: Start: 01-08-2024 End: 01-08-2024 Patient encounter procedure 01/08/2024 11:40 AM EST Office Visit Endocrinology [address] [place], [place] [phone] Jey Johnson MD [address] [place], [place] [phone] 2 MTH F/U for irregular cycles, hirsutism . Endocrinology Comment on above: 2 MTH F/U for irregular cycles, hirsutis m . Start: 12-20-2023 End: 12-20-2023 Patient encounter procedure 12/20/2023 10:00 AM EDT Office Visit [facility] [address] [place] [phone] Stefania Lake NP [address] [place] [address] [facility] Start: 11-16-2023 End: 02-15-2024 17-Hydroxyprogesterone [Mass/volume] in Serum or Plasma HYDROXYPROGESTERONE-17 Lab Routine Obesity, Class III, BMI 40-49.9 (morbid obesity) ([facility]) Expected: 11/16/2023, Expires: 02/15/2024 [facility] Work Phone: Comment on above: Expected: 11/16/2023, Expires: Start: 11-16-2023 End: 02-15-2024 BIOAVAIL TESTO/SHBG, FEM & CHILD BIOAVAIL TESTO/SHBG, FEM & CHILD Lab Routine Obesity, Class III, BMI 40-49.9 (morbid obesity) ([facility]) Expected: 11/16/2023, Expires: 02/15/[address] [facility] Comment on above: Expected: 11/16/2023, Expires: Start: 11-16-2023 End: 02-15-2024 Corticotropin [Mass/volume] in Plasma ACTH BLD Lab Routine Obesity, Class III, BMI 40-49.9 (morbid obesity) ([facility]) Expected: 11/16/2023, Expires: 02/15/[address] [facility] Comment on above: Expected: 11/16/2023, Expires: Start: 11-16-2023 End: 02-15-2024 Cortisol [Mass/volume] in Serum or Plasma CORTISOL, SERUM Lab Routine Obesity, Class III, BMI 40-49.9 (morbid obesity) ([facility]) Expected: 11/16/2023, Expires: 02/15/[address] [facility] Comment on above: Expected: 11/16/2023, Expires: Start: 11-16-2023 End: 02-15-2024 DHEA-S BLD DHEA-S BLD Lab Routine Obesity, Class III, BMI 40-49.9 (morbid obesity) ([facility]) Expected: 11/16/2023, Expires: 02/15/[address] [facility] Comment on above: Expected: 11/16/2023, Expires: Start: 11-16-2023 End: 02-15-2024 Estradiol (E2) [Mass/volume] in Serum or Plasma ESTRADIOL-17B BLD Lab Routine Obesity, Class III, BMI 40-49.9 (morbid obesity) ([facility]) Expected: 11/16/2023, Expires: 02/15/[address] [facility] Comment on above: Expected: 11/16/2023, Expires: Start: 11-16-2023 End: 02-15-2024 Follitropin [Units/volume] in Serum or Plasma FOLLICLE STIMULATING HORMONE Lab Routine Obesity, Class III, BMI 40-49.9 (morbid obesity) ([facility]) Expected: 11/16/2023, Expires: 02/15/[address] [facility] Comment on above: Expected: 11/16/2023, Expires: Start: 11-16-2023 End: 02-15-2024 Hemoglobin A1c in Blood HEMOGLOBIN A1C Lab Routine PCOS (polycystic ovarian syndrome) Expected: 11/16/2023, Expires: 02/15/[address] [facility] Comment on above: Expected: 11/16/2023, Expires: Start: 11-16-2023 End: 02-15-2024 Insulin [Units/volume] in Serum or Plasma INSULIN ASSAY BLOOD Lab Routine PCOS (polycystic ovarian syndrome) Expected: 11/16/2023, Expires: 02/15/[address] [facility] Comment on above: Expected: 11/16/2023, Expires: Start: 11-16-2023 End: 02-15-2024 Lutropin [Units/volume] in Serum or Plasma LUTEINIZING HORMONE Lab Routine Obesity, Class III, BMI 40-49.9 (morbid obesity) (HCC) Expected: 11/16/2023, Expires: 02/15/[address] [facility] Comment on above: Expected: 11/16/2023, Expires: Start: 11-16-2023 End: 02-15-2024 Prolactin [Mass/volume] in Serum or Plasma PROLACTIN Lab Routine Obesity, Class III, BMI 40-49.9 (morbid obesity) (HCC) Expected: 11/16/2023, Expires: 02/15/[address] [facility] Comment on above: Expected: 11/16/2023, Expires: Start: 11-16-2023 End: 02-15-2024 Thyrotropin [Units/volume] in Serum or Plasma THYROID STIMULATING HORMONE Lab Routine Obesity, Class III, BMI 40-49.9 (morbid obesity) (HCC) Expected: 11/16/2023, Expires: 02/15/[address] [facility] Comment on above: Expected: 11/16/2023, Expires: Start: 11-16-2023 End: 02-15-2024 Thyroxine (T4) free [Mass/volume] in Serum or Plasma T4 FREE/FREE THYROXINE Lab Routine Obesity, Class III, BMI 40-49.9 (morbid obesity) ([facility]) Expected: 11/16/2023, Expires: 02/15/[address] [facility] Comment on above: Expected: 11/16/2023, Expires: Start: 10-21-2023 Covid-19 Vaccine () Covid-19 Vaccine () [facility] Start: 10-21-2023 Covid-19 Vaccine ( season) Covid-19 Vaccine () [facility] Start: 10-21-2023 Influenza vaccination Influenza Vaccine (#1) [facility] Start: 06-03-2023 [facility] Start: 05-08-2023 [facility] Start: 04-08-2023 [facility] Start: 04-07-2023 Referral to service [facility] Start: 04-07-2023 End: 04-07-2023 Suicide precautions [facility] Start: 02-19-2023 Depression Assessment Depression Assessment [facility] Start: 02-06-2023 Liver elastography w/o imag w/i&r LIVER ELASTOGRAPHY [facility] Start: 12-22-2022 Blood chemistry [facility] Start: 12-21-2022 Blood chemistry [facility] Start: 12-20-2022 Patient discharge [facility] Start: 12-19-2022 Admission procedure [facility] Start: 12-19-2022 [facility] Start: 12-18-2022 Assessment of risk of venous thromboembolism [facility] Start: 12-18-2022 Catheterization of vein [facility] Start: 12-18-2022 Insertion of catheter into peripheral vein [facility] Start: 12-18-2022 Measuring intake and output [facility] Start: 12-18-2022 Providing care according to standard [facility] Start: 12-18-2022 Provision of activity privileges [facility] Start: 12-18-2022 Referral to occupational therapist [facility] Start: 12-18-2022 Referral to service [facility] Start: 12-18-2022 [facility] Start: 12-18-2022 Following clinical pathway protocol [facility] Start: 12-18-2022 Verification routine [facility] Start: 12-18-2022 Admission procedure [facility] Start: 12-18-2022 Hospital admission, emergency, from emergency room, medical nature [facility] Start: 12-18-2022 [facility] Start: 12-18-2022 Consultation [facility] Start: 12-09-2022 End: 12-09-2022 [facility] Start: 10-20-2022 Covid-19 Vaccine ( season) Covid-19 Vaccine () [facility] Start: 10-20-2022 Influenza vaccination Influenza Vaccine (#1) [facility] Start: 09-19-2022 Following clinical pathway protocol [facility] Start: 08-08-2022 Colonoscopy w/biopsy single/multiple COLONOSCOPY AND BIOPSY [facility] Start: 08-08-2022 Egd transoral biopsy single/multiple EGD BIOPSY SINGLE/MULTIPLE [facility] Start: 08-08-2022 Patient discharge [facility] Start: 02-17-2022 Elastase, pancreatic (el-1), fecal; quantitative [facility] Work Phone: Start: 02-17-2022 Protein measurement [facility] Work Phone: Start: 01-24-2022 Enteric precautions [facility] Start: 10-20-2021 Influenza vaccination INFLUENZA (#1) [facility] Start: 09-11-2021 Urine microalbumin profile DTaP,Tdap,Td Vaccine (8 - Td or Tdap) [facility] Start: 09-10-2021 Referral to service [facility] Work Phone: Start: 09-10-2021 Suicide precautions [facility] Work Phone: Start: 08-16-2021 Radiography of ankle Ankle min 3 Views [facility] Work Phone: Start: 08-16-2021 Radiologic examination of knee Knee 1 or 2 Views [facility] Work Phone: Start: 08-16-2021 X-ray of both feet Foot min 3 Views [facility] Work Phone: Start: 08-16-2021 XR Ankle GE 3 Views [facility] Work Phone: Start: 08-16-2021 XR Foot GE 3 Views [facility] Work Phone: Start: 08-16-2021 XR Knee 1 or 2 Views [facility] Work Phone: Start: 04-21-2021 COVID-19 VACCINE (3 - Booster for Pfizer series) COVID-19 VACCINE (3 - Booster for Pfizer series) [facility] Start: 02-19-2021 DEPRESSION ASSESSMENT DEPRESSION ASSESSMENT [facility] Start: 01-16-2021 COVID-19 VACCINE (3 - Booster for Pfizer series) COVID-19 VACCINE (3 - Booster for Pfizer series) [facility] Start: 2017 PAP TESTING PAP TESTING [facility] Start: 2017 Screening for malignant neoplasm of cervix [facility] Start: 07-03-2018 Glaucoma screening Dilated Retinal Exam [facility] Start: 10-25-2015 Pneumococcal vaccination Pneumococcal Vaccine (1 of 2 - PCV) [facility] Start: 10-25-2015 Urine microalbumin profile DTAP,TDAP,TD (1 - Tdap) [facility] Start: 2014 Annual PCP Team Chronic Disease Visit Annual PCP Team Chronic Disease Visit [facility] Start: 2014 Anxiety Screening Anxiety Screening [facility] Start: 2014 BP Controlled (<130/80) BP Controlled (<130/80) [facility] Start: 2014 Depression Screening Depression Screening [facility] Start: 2014 HEPATITIS C SCREENING HEPATITIS C SCREENING [facility] Start: 2014 Hepatitis C screening Hepatitis C Screening [facility] Start: 2014 HIV SCREENING HIV SCREENING [facility] Start: 2014 HIV screening HIV Screening [facility] Start: 2010 PEDS TO ADULT TRANSITION ANNUAL ASSESSMENT PEDS TO ADULT TRANSITION ANNUAL ASSESSMENT [facility] Start: 2008 Adult depression screening assessment DEPRESSION SCREENING [facility] Start: 2008 PEDS TO ADULT TRANSITION INITIAL DISCUSSION PEDS TO ADULT TRANSITION INITIAL DISCUSSION [facility] Start: 10-25-2007 HPV VACCINE (1 - 2-dose series) HPV VACCINE (1 - 2-dose series) [facility] Start: 2006 Diabetic foot examination Diabetic Foot Exam [facility] Start: 2006 Hepatitis B screening Urine Albumin:Creatinine Ratio [facility] Start: 2006 MENINGOCOCCAL B: Consider based on risk (1 of 2 - Risk Bexsero 2-dose series) MENINGOCOCCAL B: Consider based on risk (1 of 2 - Risk Bexsero 2-dose series) [facility] Start: 1996 HEPATITIS B (1 of 3 - 3-dose series) HEPATITIS B (1 of 3 - 3-dose series) [facility] Cardiac event recording [facility] Clostridioides diffi cile DNA [Presence] in Unspecified specimen by DAMARIS with probe detection [facility] Work Phone: COVID & INFLUENZA A/ B & RSV PCR, ROUTINE COVID & INFLUENZA A/B & RSV PCR, ROUTINE Microbiology Routine Sore throat URI, acute 01/24/2024 2:45 PM EST [facility] Work Phone: COVID & INFLUENZA A/ B & RSV PCR, ROUTINE COVID & INFLUENZA A/B & RSV PCR, ROUTINE Microbiology Routine Influenza-like illness Ordered: 04/14/2024 [facility] Work Phone: Comment on above: Ordered: 04/14/2024 Gastrointestinal pathogens panel - Stool by DAMARIS with probe detection [facility] Work Phone: Hemoglobin A1c/Hemoglobin.total in Blood [facility] Lactoferrin [Presenc e] in Stool by Immunoassay [facility] Work Phone: Liver stiffness by US.transient elastography [facility] MR Abdomen WO and W contrast IV [facility] Ova and Parasites Ova and Parasites [facility] Work Phone: Ova and parasites identified in Unspecified specimen by Light microscopy [facility] Work Phone: Patient Education [facility] Work Phone: Patient referral [facility] Work Phone: Protein measurement [facility] Work Phone: Radionuclide gastric emptying study [facility] Work Phone: Removal impacted cer umen irrigation/lvg unilat AMBULATORY EAR LAVAGE/IRRIGATION Procedures Routine Impacted cerumen of left ear Ordered: 09/13/2023 [facility] Work Phone: Comment on above: Ordered: 09/13/2023 Troponin T.cardiac [Mass/volume] in Serum or Plasma by High sensitivity method [facility] Ultrasound elastography [facility] Work Phone: US Abdomen limited [facility] Work Phone: Immunizations Immunization Date Immunization Notes Care Provider Martha urena 10-31-2020 influenza virus vacc ine, unspecified formulation Louis Schmidt APRN.CNP Work Phone: [facility] Payers Date Payer Category Payer Self-pay [id number] 2020 Medicaid [employer] [facility] [id number] 2020-Present [phone] [address] [place] [address] Medicaid [id number] 2020 Medicaid [id number] 2019 Private Health Insurance 2019 Medicaid [id number] 2016 Private Health Insurance [id number] 1996 Unknown [id number] 2.16.840.1.491986.3.579.2. 627 1996 Unknown [id number] 2.840.1.996212.3.579.2. 903 1996 Unknown [id number] 2.16840.1.714037.3.579.2. 1259 1996 Unknown [id number] 2.16840.1.995273.3.579.2. 1259 Unknown [id number] Unknown [id number] 2.840.1.152987.3.579.2. 462 Unknown [id number] 2.840.1.478841.3.579.2. 462 Unknown [id number] 2.16840.1.491890.3.579.2. 462 Unknown [id number] 2.16.840.1.158238.3.579.2. 462 Unknown [id number] 2.16.840.1.969187.3.579.2. 462 Unknown [id number] 2.16.840.1.414175.3.579.2. 462 Unknown [id number] 2.16840.1.231535.3.579.2. 462 Unknown [id number] 2.16840.1.706275.3.579.2. 462 Unknown [id number] 2.840.1.171219.3.579.2. 462 Unknown [id number] 2.840.1.508626.3.579.2. 462 Unknown [id number] 2.840.1.495217.3.579.2. 462 Unknown [id number] 2.840.1.495302.3.579.2. 462 Unknown [id number] 2.840.1.499223.3.579.2. 462 Unknown [id number] 2.840.1.162947.3.579.2. 462 Unknown [id number] 2.840.1.627052.3.579.2. 462 Unknown [id number] 2.840.1.214633.3.579.2. 462 Unknown [id number] .840.1.378203.3.579.2. 462 Unknown [id number] 2.840.1.975349.3.579.2. 462 Unknown [id number] 2.840.1.025115.3.579.2. 462 Unknown [id number] 2.840.1.668035.3.579.2. 462 Unknown [id number] 2.840.1.142890.3.579.2. 462 Unknown [id number] 2.840.1.075532.3.579.2. 462 Unknown [id number] 2.840.1.029975.3.579.2. 462 Unknown [id number] 2.840.1.536287.3.579.2. 462 Unknown [id number] 2.840.1.463649.3.579.2. 462 Unknown [id number] 2.16.840.1.530742.3.579.2. 462 Unknown [id number] 2.16.840.1.418378.3.579.2. 462 Unknown [id number] 2.16.840.1.227419.3.579.2. 462 Unknown [id number] 2.16.840.1.270037.3.579.2. 462 Unknown [id number] 2.16.840.1.135919.3.579.2. 462 Unknown [id number] 2.16.840.1.768206.3.579.2. 462 Unknown [id number] 2.16.840.1.927089.3.579.2. 462 Unknown [id number] 2.16.840.1.162203.3.579.2. 462 Unknown [id number] 2.16.840.1.367165.3.579.2. 462 Social History Date Type Detail Facility Start: 08-21-2016 End: 01-08-2024 Never smoked tobacco (finding) [facility] Sex Assigned At [facility] Start: 02-03-2021 End: 01-30-2023 Tobacco smoking status NVIS Unknown if ever smoked [facility] Start: 05-27-2020 With Family [facility] Start: 09-22-2020 Non-smoker [facility] Start: 1995 Sex Assigned At Female [facility] Start: 08-21-2016 End: 01-08-2024 Tobacco use and exposure Smokeless tobacco non-user [facility] Start: 10-13-2020 End: 07-15-2024 Alcohol intake Current non-drinker of alcohol (finding) [facility] Start: 1996 Sex Assigned At Not on file C [facility] Start: 12-08-2019 End: 09-03-2021 Exposure to SARS-CoV-2 (event) Not sure [facility] Start: 12-12-2021 End: 10-26-2023 History of Social function [facility] Start: 12-12-2021 End: 10-26-2023 Tobacco use panel [facility] National Score (1-100), lower number is lower risk Not on file [facility] Start: 07-30-2022 End: 12-31-2023 Alcoholic beverage intake Current drinker of alcohol (finding) [facility] Start: 07-30-2022 Alcohol Comment Alcohol: 1-2 drinks/monthly or less. caffeine: 3-4 cups/day [facility] Start: 05-02-2024 End: 06-05-2024 Sex Female (finding) [facility] Start: 05-30-2024 Gender identity Identifies as female gender (finding) [facility] Start: 05-30-2024 Sexual orientation Heterosexual (fin wayne) [facility] NEGATED: Highlighted row [facility] NEGATED: Highlighted rowStart: NINF History of tobacco use Passive smoker [facility] Medical Equipment Procedure Code Equipment Code Equipment Origin al Text Equipment Identifier Dates Start: 08-15-2023 End: 07-15-2024 Goals Date Patient Goal Desired Activity /State Functional Status Date Assessment Result Facility 12-20-2022 Functional status Ambulates [facility] Work Phone: 09-19-2022 Functional status Ambulates [facility] Work Phone: Mental Status Date Assessment Result Facility 06-03-2024 Cognitive function Voice/Name [facility] Work Phone: 05-14-2024 Cognitive function Awake;Alert;A ppropriate;Follow s Commands [facility] Work Phone: 05-08-2023 Cognitive function Level Of Cons ciousness Awake;Alert;Appropriate [facility] Work Phone: 12-20-2022 Cognitive function Voice/Name [facility] Work Phone: 12-18-2022 Cognitive function Level Of Cons ciousness Awake;Alert;Follows Commands [facility] Work Phone: 11-22-2022 Cognitive function Level Of Cons ciousness Awake;Alert;Appropriate;Follow s Commands [facility] Work Phone: 09-19-2022 Cognitive function [facility] [place] [facility] [facility] Work Phone: 08-08-2022 Cognitive function Touch/Shaking [facility] Work Phone: 08-08-2022 Cognitive function Patient Kali dumont Person;Place;Time [facility] Work Phone: 01-15-2022 Cognitive function Level Of Cons ciousness Awake;Alert;Appropriate;Follow s Commands [facility] Work Phone: 08-29-2021 Cognitive function Level Of Cons ciousness Awake;Alert;Appropriate;Follow s Commands [facility] Work Phone: Clinical Notes 01-07-2020 to 08-28-2024 Telephone Encounter - Arsenio Solorio LSW - 08/28/2024 3:49 PM EDTTelephone Encounter - Arsenio Solorio LSW - 08/28/2024 3:49 PM EDTCMaria Elena meyers [employer] - 08/26/2024 12:55 PM EDT Note Date & Type Note Facility 08-28-2024 Telephone encounter Note Endocrinology & Metabolism Social Work Progress Note Provider Action / FYI N/A Marion Gutierrez [id number] Type of Contact: telephone Endocrine BLACK OFF WORKER Referral Reason: [id number]/Exercise Noel Qualification Contact Made?: No- 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 Note/Intervention: n/a [facility] referral placed: n/a Signature: KANU Pathak Patient Name: Marion Sarabiaarturo Date: 08/28/2024 Time: 3:50 PM Pager/Contact #: [phone] During this patient contact I spent approximately 5 minutes in reviewing the patient's chart and counseling regarding community resources and coordinating care. 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 Note/Intervention: n/a [facility] referral placed: n/a Signature: KANU Pathak Patient Name: Marion Gutierrez Date: 08/28/2024 Time: 3:50 PM Pager/Contact #: [phone] During this patient contact I spent approximately 5 minutes in reviewing the patient's chart and counseling regarding community resources and coordinating care. documented in this encounter [facility] 08-26-2024 History of Present illness Narrative Virtual Visit (Audio/Visual)I have discussed the nature of this visit with the patient which will occur via [facility] (Phone, Virtual Visit) and she agrees to proceed with this interaction. She is currently not exercising. Occasional walking- can experience dizziness. No equipment. DBFUND pending Based on the ACSM's Guidelines for Exercise Testing & Prescription, the patient will not require a stress test prior to receiving an exercise prescription. documented in this encounter [facility] 08-26-2024 Note HNO ID: [id number] Author: MARIA ELENA SAVAGE [employer] Service: ? Author Type: [employer]ation [employer]icer Type: Progress Notes Filed: 08/26/2024 13:13 Note Text: Virtual Visit (Audio/Visual)I have discussed the nature of this visit with the patient which will occur via [facility] (Phone, Virtual Visit) and she agrees to proceed with this interaction. She is currently not exercising. Occasional walking- can experience dizziness. No equipment. DBFUND pending Based on the ACSM's Guidelines for Exercise Testing AND Prescription, the patient will not require a stress test prior to receiving an exercise prescription. [facility] 08-01-2024 Note HNO ID: [id number] Author: LAURA CARSON, PhD Service: ? Author Type: Psychologist Type: Progress Notes Filed: 08/01/2024 14:55 Note Text: [facility] DEPARTMENT OF ENDOCRINOLOGY Progress Note August 01, 2024 [facility]: [facility] BILLING CODE:Yamileth CPT Code:0244751 Virtual PSYTX PT AND/FAMILY 45 MINS Time initiated session: 12:20 PM to 1:30 PM Date of First Session: 06/02/24 (initial evaluation) Session #: 2 Collateral Parties Present: parent. Virtual Visit yes I have communicated my name and active licensure. If seen remotely, The patient's identity and physical location were verified at the time of this visit. Either the patient or their legal sales representative consultant has been informed of the risks and benefits of -- and alternatives to -- treatment through a remote evaluation and consents to proceed with the evaluation remotely. REASON FOR VISIT Binge Eating/Excess Weight EATING Kept food journal. Recognized large portions, ate faster in front of the TV, she recognized she likes a lot of vegetables. Pt had some recognition of eating when not hungry. Still reports some binge eating. I'm binge eating on vegetables with hummus. Denies purging since last visit. Weight: 290-300 pounds no observable change per patient. Self Reported? yes The day before yesterday: 8:30 Leftover [place] food, chips, salsa guac 11:30 Taco salad 4 slices of cheese, cucumber, 2 T hummus 5:30 corned beef hash sausage gravy, 2 eggs, 2 waffles with butter, 6 cherries, 3 strawberries 7:30 HS snack 1/2 c cottage cheese and 3 crackers 3 days she had pop and gatorade (improvement) Bed 9:00 pm Blood sugar was high one day, otherwise not over 180; 70-90 fasting most days Snacking at night has been problematic - eating out of boredom EXERCISE/PHYSICAL ACTIVITY Trying to walk around house a little bit. Discussed walking in morning MENTAL HEALTH Patient Data Binge Eating Scale (BES) 06/02/2024 07/31/2024 Eating Habits Checklist Total Score 36 23 Patient-reported <18 = minimal binge eating, 18-26 = moderate binge eating, >27 = severe binge eating Generalized Anxiety Disorder Scale (BLANQUITA-7) 06/02/2024 07/31/2024 BLANQUITA - 7 SCORES Score 18 10 (0-4) minimal anxiety, (5-9) mild anxiety, (10-14) moderate anxiety, (15-21) severe anxiety Patient Health Questionnaire (PHQ-9) 06/02/2024 07/31/2024 PHQ-9 Score 16 10 (0-4) minimal depression, (5-9) mild depression, (10-14) moderate depression, (15-19) moderately severe depression, (20-27) severe depression Patient presented as engaged and appropriate in session EDUCATION/INTERVENTION Praised self monitoring. Provided education about calories, macronutrients and nutrition that will lead to satiety with fewer calories. Patient expressed understanding Assessment: Binge Eating Disorder Bipolar Disorder Generalized Anxiety Disorder Psychological Factors Affecting Morbid Obesity. Current Outpatient Medications Medication Sig amLODIPine (NORVASC) 2.5 mg tablet Take 2.5 mg by mouth two times a day. Cyanocobalamin 1,000 mcg subl Dissolve 1 tablet under the tongue once daily. dicyclomine (BENTYL) 20 mg tablet Take 20 mg by mouth three times a day as needed. atogepant (QULIPTA) 60 mg tablet Take 60 mg by mouth once daily. MONO-LINYAH 0.25-0.035 mg tablet TAKE 1 TABLET BY MOUTH DAILY cholecalciferol (VITAMIN D3) 1,000 unit tab tablet Take 1,000 Units by mouth once daily. lithium carbonate 600 mg capsule Take 600 mg by mouth daily at bedtime. pantoprazole DR (PROTONIX) 40 mg tablet Take 40 mg by mouth once daily. ARIPiprazole lauroxil ER (ARISTADA) 441 mg/1.6 mL injection Inject 441 mg intramuscularly every 4 weeks. ONETOUCH VERIO TEST STRIPS test strip 1 Each four times daily. imipramine HCl (TOFRANIL) 25 mg tablet Take 25 mg by mouth daily at bedtime. ONETOUCH DELICA PLUS LANCET 33 gauge 1 Each four times daily. metoclopramide HCl (REGLAN) 10 mg tablet Take 5 mg by mouth four times daily. (Patient taking differently: Take 5 mg by mouth four times a day as needed.) metoprolol tartrate, short acting, (LOPRESSOR) 50 mg tablet Take 100 mg by mouth two times a day. polyethylene glycol 3350 17 gram/dose powder Take 17 g by mouth once daily. (Patient taking differently: Take 17 g by mouth once daily as needed for constipation.) simvastatin (ZOCOR) 20 mg tablet Take 20 mg by mouth daily at bedtime. ferrous sulfate 325 mg (65 mg iron) tablet Take 325 mg by mouth every other day. lithium carbonate (ESKALITH) 300 mg capsule Take 300 mg by mouth daily after breakfast. No current facility-administered medications for this visit. NEXT STEPS/GOALS Walk 15 minutes 3 times per week 4 servings of vegetables 3 days per week 80 grams of protein per day Limit to one snack after dinner. Follow up September 26 at 1:30 pm Laura Carson, PhD Psychologist [facility] 08-01-2024 History of Present illness Narrative Images from the original note were not included. [facility] DEPARTMENT OF ENDOCRINOLOGY Progress Note August 01, 2024 [facility]: [facility] BILLING CODE:Yamileth CPT Code:9965705 Virtual PSYTX PT &/FAMILY 45 MINS Time initiated session: 12:20 PM to 1:30 PM Date of First Session: 06/02/24 (initial evaluation) Session #: 2 Collateral Parties Present: parent. Virtual Visit yes I have communicated my name and active licensure. If seen remotely, The patient's identity and physical location were verified at the time of this visit. Either the patient or their legal sales representative consultant has been informed of the risks and benefits of -- and alternatives to -- treatment through a remote evaluation and consents to proceed with the evaluation remotely. REASON FOR VISIT Binge Eating/Excess Weight EATING Kept food journal. Recognized large portions, ate faster in front of the TV, she recognized she likes a lot of vegetables. Pt had some recognition of eating when not hungry. Still reports some binge eating. I'm binge eating on vegetables with hummus. Denies purging since last visit. Weight: 290-300 pounds no observable change per patient. Self Reported? yes The day before yesterday: 8:30 Leftover [place] food, chips, salsa guac 11:30 Taco salad 4 slices of cheese, cucumber, 2 T hummus 5:30 corned beef hash sausage gravy, 2 eggs, 2 waffles with butter, 6 cherries, 3 strawberries 7:30 HS snack 1/2 c cottage cheese and 3 crackers 3 days she had pop and gatorade (improvement) Bed 9:00 pm Blood sugar was high one day, otherwise not over 180; 70-90 fasting most days Snacking at night has been problematic - eating out of boredom EXERCISE/PHYSICAL ACTIVITY Trying to walk around house a little bit. Discussed walking in morning MENTAL HEALTH Patient Data Binge Eating Scale (BES) 06/02/2024 07/31/2024 Eating Habits Checklist Total Score 36 23 Patient-reported <18 = minimal binge eating, 18-26 = moderate binge eating, >27 = severe binge eating Generalized Anxiety Disorder Scale (BLANQUITA-7) 06/02/2024 07/31/2024 BLANQUITA - 7 SCORES Score 18 10 (0-4) minimal anxiety, (5-9) mild anxiety, (10-14) moderate anxiety, (15-21) severe anxiety Patient Health Questionnaire (PHQ-9) 06/02/2024 07/31/2024 PHQ-9 Score 16 10 (0-4) minimal depression, (5-9) mild depression, (10-14) moderate depression, (15-19) moderately severe depression, (20-27) severe depression Patient presented as engaged and appropriate in session EDUCATION/INTERVENTION Praised self monitoring. Provided education about calories, macronutrients and nutrition that will lead to satiety with fewer calories. Patient expressed understanding Assessment: Binge Eating Disorder Bipolar Disorder Generalized Anxiety Disorder Psychological Factors Affecting Morbid Obesity. Current Outpatient Medications Medication Sig amLODIPine (NORVASC) 2.5 mg tablet Take 2.5 mg by mouth two times a day. Cyanocobalamin 1,000 mcg subl Dissolve 1 tablet under the tongue once daily. dicyclomine (BENTYL) 20 mg tablet Take 20 mg by mouth three times a day as needed. atogepant (QULIPTA) 60 mg tablet Take 60 mg by mouth once daily. MONO-LINYAH 0.25-0.035 mg tablet TAKE 1 TABLET BY MOUTH DAILY cholecalciferol (VITAMIN D3) 1,000 unit tab tablet Take 1,000 Units by mouth once daily. lithium carbonate 600 mg capsule Take 600 mg by mouth daily at bedtime. pantoprazole DR (PROTONIX) 40 mg tablet Take 40 mg by mouth once daily. ARIPiprazole lauroxil ER (ARISTADA) 441 mg/1.6 mL injection Inject 441 mg intramuscularly every 4 weeks. ONETOUCH VERIO TEST STRIPS test strip 1 Each four times daily. imipramine HCl (TOFRANIL) 25 mg tablet Take 25 mg by mouth daily at bedtime. ONETOUCH DELICA PLUS LANCET 33 gauge 1 Each four times daily. metoclopramide HCl (REGLAN) 10 mg tablet Take 5 mg by mouth four times daily. (Patient taking differently: Take 5 mg by mouth four times a day as needed.) metoprolol tartrate, short acting, (LOPRESSOR) 50 mg tablet Take 100 mg by mouth two times a day. polyethylene glycol 3350 17 gram/dose powder Take 17 g by mouth once daily. (Patient taking differently: Take 17 g by mouth once daily as needed for constipation.) simvastatin (ZOCOR) 20 mg tablet Take 20 mg by mouth daily at bedtime. ferrous sulfate 325 mg (65 mg iron) tablet Take 325 mg by mouth every other day. lithium carbonate (ESKALITH) 300 mg capsule Take 300 mg by mouth daily after breakfast. No current facility-administered medications for this visit. NEXT STEPS/GOALS Walk 15 minutes 3 times per week 4 servings of vegetables 3 days per week 80 grams of protein per day Limit to one snack after dinner. Follow up September 26 at 1:30 pm Laura Carson, PhD Psychologist documented in this encounter [facility] 07-15-2024 Instructions Jey Johnson MD - 07/15/2024 10:59 AM EDT Please continue same regimen for the control pills documented in this encounter [facility] 07-15-2024 Note HNO ID: [id number] Author: JEY JOHNSON MD Service: ? Author Type: Physician Type: Progress Notes Filed: 07/16/2024 23:20 Note Text: Endocrinology and Metabolism [place] Follow up note Chief complaint: Evaluation of ovarian hyperandrogenism LUIS A Gutierrez is a 28 year old female presenting for follow up evaluation of ovarian hyperandrogenism/PCOS. She is accompanied by her mother today Initial visit 10/26/23. QUANG 04/15/24 PMH: She has gastroparesis for the last 6 months or more History from initial visit, Hirsutism started: puberty Patient uses mechanical hair removal (i.e. tweezers/waxing/shaving): cream weekly History of deepening of voice: No History of change in genitalia: No LMP: not specific, may be 8 months Menstrual flow: 3 days, mostly spotting for a day or so Menarche: 17 to 18 years old- mother thinks she was in 6th grade, patient reports she was in high school Number of Pregnancies: no Planning a : no Currently taking oral contraception: no. She used OCPs in the past 3 years ago Now she is on provera for 10 days each month She used metformin but had intolerance Interval history: 04/15/24: She reports period from Mar 30 to and then again started on 04/13/24. Nothing like this was seen since starting OCPs in Dec 2023 Facial hair has improved. No other side effects. Not on aldactone now She reports she missed one pill in mar, whichshe is suspecting the reason to be for this. She has seen nutrition in 02/2024 and is following instructions for conservative weight loss Interval history: 07/15/24: LMP early June She feels very good, tolerating medication well. She reports she is expecting her next period next week Chin hair are thinner now than before PAST MEDICAL HISTORY: PAST MEDICAL HISTORY Diagnosis Date Autism spectrum disorder (HCC) Bipolar disorder (HCC) 05/2016 Borderline diabetic Fatty liver History of depression IBS (irritable bowel syndrome) diarrhea Iron deficiency anemia Kyphosis PAST SURGICAL HISTORY: PAST SURGICAL HISTORY Procedure Laterality Date ADDITIONAL SPINAL FUSION Thoraco-lumbar fusion KNEE SURGERY HX Left patellar fracture FAMILY HISTORY: FAMILY HISTORY Problem Relation Age of Onset Hypertension Father Heart Father Hypertension Mother Heart Mother Hypertension Brother Diabetes Paternal Grandfather Glaucoma Other SOCIAL HISTORY: Social History Tobacco Use Smoking status: Never Passive exposure: Never Smokeless tobacco: Never Vaping Use Vaping status: Never Used Substance Use Topics Alcohol use: No Drug use: No MEDICATIONS: Current Outpatient Medications on File Prior to Visit Medication Sig ARIPiprazole lauroxil ER (ARISTADA) 441 mg/1.6 mL injection Inject intramuscularly. Very 28 days ONETOUCH VERIO TEST STRIPS test strip Cyanocobalamin 1,000 mcg subl Take 1,000 mcg by mouth. AJOVY SYRINGE 225 mg/1.5 mL syringe INJECT 1.5ML (1 SYRINGE) SUBCUTANEOUSLY EVERY MONTH hyoscyamine (LEVSIN) 0.125 mg tablet imipramine HCl (TOFRANIL) 25 mg tablet Take by mouth. lactulose 10 gram/15 mL solution TAKE 45 ML BY MOUTH TWICE DAILY NEEDED FOR CONSTIPATION. ONETOUCH DELICA PLUS LANCET 33 gauge medroxyPROGESTERone (PROVERA) 10 mg tablet metoclopramide HCl (REGLAN) 10 mg tablet Take 5 mg by mouth. metoprolol tartrate, short acting, (LOPRESSOR) 50 mg tablet Take 1 tablet by mouth every 12 hours. ULTICARE PEN NEEDLE 32 gauge x 1/4 polyethylene glycol 3350 17 gram/dose powder MIX 4 GRAMS WITH LIQUID AND DRINK ONCE DAILY rizatriptan (MAXALT) 10 mg tablet Take by mouth as needed. simvastatin (ZOCOR) 20 mg tablet Take 20 mg by mouth daily at bedtime. sucralfate (CARAFATE) 1 gram tablet Take 1 g by mouth four times daily. hydrOXYzine pamoate (VISTARIL) 25 mg capsule ferrous sulfate 325 mg (65 mg iron) tablet Take 325 mg by mouth every other day. spironolactone (ALDACTONE) 50 mg tablet Take 50 mg by mouth two times a day. pantoprazole DR (PROTONIX) 20 mg tablet Take 40 mg by mouth once daily. lithium carbonate (ESKALITH) 300 mg capsule Take 300 mg by mouth daily after breakfast. cholecalciferol, Vitamin D3, (VITAMIN D3) 1,250 mcg (50,000 unit) cap capsule Take 1 capsule by mouth one time a week. (Patient not taking: Reported on 10/26/2023) No current facility-administered medications on file prior to visit. ALLERGIES: ALLERGIES Allergen Reactions Ondansetron Anaphylaxis, Other: See Comments Tongue swelling Broccoli Diarrhea Cauliflower Diarrhea Anti Depressants [T* Other: See Comments Patient states she must take anti-depressants with a mood stabilizer or else she becomes suicidal. Escitalopram Other: See Comments Suicidal ideation suicidal Suicidal thoughts Gluten Flour Diarrhea Lactase Diarrhea, GI Upset Eats dairy products, just limit amount Lexapro [Escitalopr* Mental Status Change Seasonal Allergies Cough Janell (more content not 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 [facility] 07-15-2024 History of Present illness Narrative Endocrinology and Metabolism [place] Follow up note Chief complaint: Evaluation of ovarian hyperandrogenism HPI Marion Gutierrez is a 28 year old female presenting for follow up evaluation of ovarian hyperandrogenism/PCOS. She is accompanied by her mother today Initial visit 10/26/23. QUANG 04/15/24 PMH: She has gastroparesis for the last 6 months or more History from initial visit, Hirsutism started: puberty Patient uses mechanical hair removal (i.e. tweezers/waxing/shaving): cream weekly History of deepening of voice: No History of change in genitalia: No LMP: not specific, may be 8 months Menstrual flow: 3 days, mostly spotting for a day or so Menarche: 17 to 18 years old- mother thinks she was in 6th grade, patient reports she was in high school Number of Pregnancies: no Planning a : no Currently taking oral contraception: no. She used OCPs in the past 3 years ago Now she is on provera for 10 days each month She used metformin but had intolerance Interval history: 04/15/24: She reports period from Mar 30 to and then again started on 04/13/24. Nothing like this was seen since starting OCPs in Dec 2023 Facial hair has improved. No other side effects. Not on aldactone now She reports she missed one pill in mar, whichshe is suspecting the reason to be for this. She has seen nutrition in 02/2024 and is following instructions for conservative weight loss Interval history: 07/15/24: LMP early June She feels very good, tolerating medication well. She reports she is expecting her next period next week Chin hair are thinner now than before PAST MEDICAL HISTORY: PAST MEDICAL HISTORY Diagnosis Date Autism spectrum disorder (HCC) Bipolar disorder (HCC) 05/2016 Borderline diabetic Fatty liver History of depression IBS (irritable bowel syndrome) diarrhea Iron deficiency anemia Kyphosis PAST SURGICAL HISTORY: PAST SURGICAL HISTORY Procedure Laterality Date ADDITIONAL SPINAL FUSION Thoraco-lumbar fusion KNEE SURGERY HX Left patellar fracture FAMILY HISTORY: FAMILY HISTORY Problem Relation Age of Onset Hypertension Father Heart Father Hypertension Mother Heart Mother Hypertension Brother Diabetes Paternal Grandfather Glaucoma Other SOCIAL HISTORY: Social History Tobacco Use Smoking status: Never Passive exposure: Never Smokeless tobacco: Never Vaping Use Vaping status: Never Used Substance Use Topics Alcohol use: No Drug use: No MEDICATIONS: Current Outpatient Medications on File Prior to Visit Medication Sig ARIPiprazole lauroxil ER (ARISTADA) 441 mg/1.6 mL injection Inject intramuscularly. Very 28 days ONETOUCH VERIO TEST STRIPS test strip Cyanocobalamin 1,000 mcg subl Take 1,000 mcg by mouth. AJOVY SYRINGE 225 mg/1.5 mL syringe INJECT 1.5ML (1 SYRINGE) SUBCUTANEOUSLY EVERY MONTH hyoscyamine (LEVSIN) 0.125 mg tablet imipramine HCl (TOFRANIL) 25 mg tablet Take by mouth. lactulose 10 gram/15 mL solution TAKE 45 ML BY MOUTH TWICE DAILY NEEDED FOR CONSTIPATION. ONETOUCH DELICA PLUS LANCET 33 gauge medroxyPROGESTERone (PROVERA) 10 mg tablet metoclopramide HCl (REGLAN) 10 mg tablet Take 5 mg by mouth. metoprolol tartrate, short acting, (LOPRESSOR) 50 mg tablet Take 1 tablet by mouth every 12 hours. ULTICARE PEN NEEDLE 32 gauge x 1/4 polyethylene glycol 3350 17 gram/dose powder MIX 4 GRAMS WITH LIQUID AND DRINK ONCE DAILY rizatriptan (MAXALT) 10 mg tablet Take by mouth as needed. simvastatin (ZOCOR) 20 mg tablet Take 20 mg by mouth daily at bedtime. sucralfate (CARAFATE) 1 gram tablet Take 1 g by mouth four times daily. hydrOXYzine pamoate (VISTARIL) 25 mg capsule ferrous sulfate 325 mg (65 mg iron) tablet Take 325 mg by mouth every other day. spironolactone (ALDACTONE) 50 mg tablet Take 50 mg by mouth two times a day. pantoprazole DR (PROTONIX) 20 mg tablet Take 40 mg by mouth once daily. lithium carbonate (ESKALITH) 300 mg capsule Take 300 mg by mouth daily after breakfast. cholecalciferol, Vitamin D3, (VITAMIN D3) 1,250 mcg (50,000 unit) cap capsule Take 1 capsule by mouth one time a week. (Patient not taking: Reported on 10/26/2023) No current facility-administered medications on file prior to visit. ALLERGIES: ALLERGIES Allergen Reactions Ondansetron Anaphylaxis, Other: See Comments Tongue swelling Broccoli Diarrhea Cauliflower Diarrhea Anti Depressants [T* Other: See Comments Patient states she must take anti-depressants with a mood stabilizer or else she becomes suicidal. Escitalopram Other: See Comments Suicidal ideation suicidal Suicidal thoughts Gluten Flour Diarrhea Lactase Diarrhea, GI Upset Eats dairy products, just limit amount Lexapro [Escitalopr* Mental Status Change Seasonal Allergies Cough Tomato GI Upset Zofran (Pf) In Dext* Swelling, GI Upset Metformin Diarrhea, GI Upset Pollen Extracts Hives, Intolerance ROS Pertinent as per HPI PHYSICAL EXAM BP 122/78 (BP Site: Right Arm, BP Position: Sitting, BP Cuff Size: Large Adult) Pulse 61 Resp 20 Ht 170.2 cm (5' 7) Wt 134.4 kg (296 lb 6.4 oz) LMP 06/24/2024 (Approximate) SpO2 97% BMI 46.42 kg/m General Appearance: Well appearing, alert, in no acute distress, well-hydrated,obese body habitus Skin: pale thin stretch espinoza on upper abdomen noted Eyes: Extraocular movements are intact. Neck: Supple, no adenopathy; thyroid symmetric, normal size, no palpable nodules, no bruits Lungs: unlabored breathing on room air Heart: RRR Abdomen: obese abdomen, no concerning striae as mentioned above Extremities: No deformities, edema, skin discoloration, clubbing or cyanosis. Musculoskeletal: No joint swelling, deformity, or tenderness. Peripheral Pulses: Normal. Neurologic: Gait normal. Reflexes normal and symmetric. PREVIOUS DATA Diagnostic tests reviewed for today's visit: Cortisol and ACTH normal on 07/17/2023 Cortisol, 24 HR UR Free on 07-23-2023 CORTISOL,F/24hr 46 ug/24 hr High 6-42 [facility] CORTISOL,U FREE 16 ug/L Normal Undefined [facility] Metanephrine Frac 24 HR UR on 07-23-2023 Metaneph,UR 24H 68 ug/24 hr Normal 36-209 [facility] Metanephrines,U 24 ug/L Normal Undefined [facility] Normetan,UR 24h 522 ug/24 hr High 95-449 [facility] Normetanephrine 183 ug/L Normal Undefined [facility] Catecholamines, 24 UR on 07-20-2023 Dopamine, Urine 580 ug/L Normal Undefined [facility] Dopamine,U,24HR 957 ug/24 hr High 0-510 [facility] Epineph.,U,24HR 5 ug/24 hr Normal 0-20 [facility] Epinephrine, U 3 ug/L Normal Undefined [facility] Norepin.,U,24HR 134 ug/24 hr Normal 0-135 [facility] Comment on above: Order Comment: Test(s) 881548-[id number], Urine; [id number]-Tibkmjacfcoonm, Ur; [id number]-Xiuydxwt, Urinewas developed and its performance characteristicsdetermined by [employer]. It has not been cleared or approvedby the Food and Drug Administration. Performed By: #### [id number] ####[facility] [id number] [place], [place], [id number] Norepinephrin,U 81 ug/L Normal Undefined [facility] Adrenocorticotropic Hormone on 07-17-2023 ACTH 9.7 pg/mL Normal 7.2-63.3 [facility] CORTISOL SERUM on 07-17-2023 CORTISOL 20.10 ug/dL Normal 3.44-22.45 [facility] Catecholamines, Plasma on 07-17-2023 DOPAMINE <30 Normal 0-48 [facility] EPINEPHRINE <15 Normal 0-62 [facility] NOREPINEPHRINE 429 pg/mL Normal 0-874 [facility] Gastrin, Serum on 07-17-2023 GASTRIN 265 pg/mL High 0-115 [facility] Insulin Level on 07-17-2023 INSULIN,FASTING 93.7 uIU/mL High 2.6-24.9 [facility] Insulin Like Growth Factor on 07-17-2023 SOMATOMEDIN C 122 ng/mL Normal 91-308 [facility] Chromogranin A 206.0 ng/mL Abnormal 0.0-101.8 [facility] Renin/Aldosterone Activity on 07-17-2023 ALD/RENIN RATIO 11.6 Normal 0.0-30.0 [facility] Performed By: #### [id number], L3300.3500, L3300.1800, L3430.0100, L3300.1000, L3300.1050, L3100.4810 ####[facility] [address] [place], [place], [id number] ALDOSTERONE,S 45.0 ng/dL High 0.0-30.0 [facility] RENIN, PLASMA 3.873 ng/mL/hr Normal 0.167-5.380 [facility] BUN/CRE 18.1 RATIO Normal 10-20 [facility] CA,Total 9.0 mg/dL Normal 8.5-10.1 [facility] Chloride [Moles/Vol] 110 mmol/L High 98-107 [facility] CO2 [Moles/Vol] 25.0 mmol/L Normal 21.0-32.0 [facility] Creatinine [Mass/Vol] 0.66 mg/dL Normal 0.55-1.02 [facility] Performed By: #### L100.0100, L500.4050, L506.1000, L501.97777, L501.9520, L506.0400, L501.9060 ####[facility] [address] [place], [place], [id number] EST GFR - AA 138 mL/min Normal >60 [facility] Performed By: #### L100.0100, L500.4050, L506.1000, L501.49352, L501.9520, L506.0400, L501.9060 ####[facility] [id number] [place], [place], [id number] GAP 3 Low 5-15 [facility] GFR/1.73 sq M.predicted among non-blacks MDRD (S/P/Bld) [Vol rate/Area] 114 mL/min/(1.73_m2) Normal >60 [facility] Globulin (S) [Mass/Vol] 3.8 g/dL Normal 2.2-4.2 [facility] Glucose [Mass/Vol] 124 mg/dL High 74-106 [facility] Performed By: #### L100.0100, L500.4050, L506.1000, L501.05247, L501.9520, L506.0400, L501.9060 ####[facility] [address] [place], [place], [id number] Potassium [Moles/Vol] 4.0 mmol/L Normal 3.5-5.1 [facility] Sodium [Moles/Vol] 138 mmol/L Normal 136-145 [facility] T PROT 7.0 g/dL Normal 6.4-8.2 [facility] Urea nitrogen [Mass/Vol] 12 mg/dL Normal 7-18 [facility] Free T3 on 07-05-2023 Free T3 [Mass/Vol] 2.4 pg/mL Normal 2.18-3.98 [facility] Comment on above: Performed By: #### L100.0100, L500.4050, L506.1000, L501.40037, L501.9520, L506.0400, L501.9060 ####[facility] [address] [place], [address] [place] on 07-05-2023 LI 0.80 mmol/L Normal 0.60-1.20 [facility] T4 Free Direct on 07-05-2023 T4 FREE DIRECT 1.04 ng/dL Normal 0.76-1.46 [facility] Comment on above: Performed By: #### L100.0100, L500.4050, L506.1000, L501.56714, L501.9520, L506.0400, L501.9060 ####[facility] [address] [place], [address] Thyroid Stim Hormone (TSH) on 07-05-2023 TSH 2.10 uIU/mL Normal 0.358-3.74 [facility] Vitamin D,25 Hydroxy on 07-05-2023 Vitamin D 25-OH 30.3 ng/mL Normal [facility] Latest Ref Rng 12/05/2023 Sex Hormone Bind GLB 25 - 122 nmol/L 56 Testosterone Total 9 - 55 ng/dL 63 (H) Testosterone Free 0.8 - 7.4 pg/mL 8.0 (H) Testo Bioavailable 2.2 - 20.6 ng/dL 19.4 Hemoglobin A1C 4.3 - 5.6 % 5.7 (H) Estimated Average Glucose mg/dL 117 Hydroxyprogesterone <=206.00 ng/dL 48.26 DHEA-S 98.8 - 340.0 ug/dL 72.8 (L) Cortisol 4.8 - 19.5 ug/dL 13.6 ACTH 7.2 - 63.3 pg/mL 11.8 TSH 0.270 - 4.200 mIU/L 2.940 Free T4 0.9 - 1.7 ng/dL 1.3 Prolactin 4.4 - 33.8 ng/mL 15.2 Estradiol 17B pg/mL 66 FSH See comment mIU/mL 4.2 LH See comment mIU/mL 6.7 Insulin 3.0 - 25.0 mU/L 97.9 (H) Glucose, fasting ordered but not drawn Legend: (H) High (L) Low ASSESSMENT AND PLAN PCOS: Currently on GEOVANNA and has regular cycles, with improvement in hirsutism Will continue same regimen Referral to dietitian given for conservative weight loss - and did not see much changes in weight with this Does not prefer weight management referral at this time (Refer to documentation from previous visit for other endocrine related work done done) Follow-up in 3 months per her preference Medical Decision Making: Problems: Moderate: 1+ chronic illnesses with change Risk: Moderate: Moderate risk from testing/treatment Medical Decision Making Level: 4 - Moderate Jey Johnson MD Endocrinology Associate Staff [facility] Endocrinology and Metabolism [place] [phone] documented in this encounter [facility] 06-26-2024 Telephone encounter Note Images from the original note were not included. Patient confirms taking Trigg-Linyah and not Sprintec (also on med list). Pended for review. Most recent Endocrinology visit: Last encounter Visit on 05/16/2024 (with Huey Cortes) 10/26/2023 in [facility] with JEY JOHNSON for PCOS (polycystic ovarian syndrome) 01/08/2024 in [facility] with JEY JOHNSON for PCOS (polycystic ovarian syndrome) 04/15/2024 in [facility] with JEY JOHNSON for Obesity, Class III, BMI 40-49.9 (morbid obesity) 05/16/2024 in [facility] with HUEY CORTES for Obesity, Class III, BMI 40-49.9 (morbid obesity) Upcoming Endocrinology Appointments - Next 365 Days Visit Type Date Time Department EST HAM PATIENT 07/15/2024 10:40 AM ENDO [facility] VIDEO SPEC EST 08/01/2024 12:15 PM ENDO PS[facility] DIABETES CTR MAIN VIDEO GROUP EP EDU NON IRASEMA 08/26/2024 1:00 PM [facility] Requested Prescriptions Pending Prescriptions Disp Refills MONO-LINYAH 0.25-0.035 mg tablet [Pharmacy Med Name: Trigg-Linyah 0.25-35MG-MCG TABS] 28 tablet 2 Sig: TAKE 1 TABLET BY MOUTH DAILY Latest Ref Rng & Units 12/05/2023 Hemoglobin A1C Hemoglobin A1C 4.3 - 5.6 % 5.7 Latest Ref Rng & Units 12/05/2023 TSH TSH 0.270 - 4.200 mIU/L 2.940 Free T3: None on file in the last 12 months Latest Ref Rng & Units 12/05/2023 FREE T4 Free T4 0.9 - 1.7 ng/dL 1.3 Thyroglobulin: None on file in the last 12 months Vitamin D: None on file in the last 12 months Hematocrit: None on file in the last 12 months Latest Ref Rng & Units 12/05/2023 Creatinine Creatinine 0.58 - 0.96 mg/dL 0.62 Latest Ref Rng & Units 12/05/2023 eGFR EGFR >=60 mL/min/1.73m 125 Latest Ref Rng & Units 12/05/2023 Potassium Potassium 3.7 - 5.1 mmol/L 4.4 Latest Ref Rng & Units 12/05/2023 Testosterone Testosterone Free 0.8 - 7.4 pg/mL 8.0 IGF: None on file in the last 12 months Latest Ref Rng & Units 12/05/2023 Prolactin Prolactin 4.4 - 33.8 ng/mL 15.[address] [facility] 06-26-2024 Miscellaneous Notes Images from the original note were not included. Patient confirms taking Trigg-Linyah and not Sprintec (also on med list). Pended for review. Most recent Endocrinology visit: Last encounter Visit on 05/16/2024 (with Peris Kibera) 10/26/2023 in [facility] with BENDARAM, JEY LAGUNA for PCOS (polycystic ovarian syndrome) [facility] with BENDARAM, JEY LAGUNA for PCOS (polycystic ovarian syndrome) 04/15/2024 in [facility] with BENDARAM, JEY LAGUNA for Obesity, Class III, BMI 40-49.9 (morbid obesity) 05/16/2024 in [facility] with KIBERA, PERIS for Obesity, Class III, BMI 40-49.9 (morbid obesity) Upcoming Endocrinology Appointments - Next 365 Days Visit Type Date Time Department EST HAM PATIENT 07/15/2024 10:40 AM ENDO [facility] VIDEO SPEC EST 08/01/2024 12:15 PM ENDO PSYL DIABETES CTR MAIN VIDEO GROUP EP EDU NON IRASEMA 08/26/2024 1:00 PM [facility] Requested Prescriptions Pending Prescriptions Disp Refills MONO-LINYAH 0.25-0.035 mg tablet [Pharmacy Med Name: Trigg-Linyah 0.25-35MG-MCG TABS] 28 tablet 2 Sig: TAKE 1 TABLET BY MOUTH DAILY Latest Ref Rng & Units 12/05/2023 Hemoglobin A1C Hemoglobin A1C 4.3 - 5.6 % 5.7 Latest Ref Rng & Units 12/05/2023 TSH TSH 0.270 - 4.200 mIU/L 2.940 Free T3: None on file in the last 12 months Latest Ref Rng & Units 12/05/2023 FREE T4 Free T4 0.9 - 1.7 ng/dL 1.3 Thyroglobulin: None on file in the last 12 months Vitamin D: None on file in the last 12 months Hematocrit: None on file in the last 12 months Latest Ref Rng & Units 12/05/2023 Creatinine Creatinine 0.58 - 0.96 mg/dL 0.62 Latest Ref Rng & Units 12/05/2023 eGFR EGFR >=60 mL/min/1.73m 125 Latest Ref Rng & Units 12/05/2023 Potassium Potassium 3.7 - 5.1 mmol/L 4.4 Latest Ref Rng & Units 12/05/2023 Testosterone Testosterone Free 0.8 - 7.4 pg/mL 8.0 IGF: None on file in the last 12 months Latest Ref Rng & Units 12/05/2023 Prolactin Prolactin 4.4 - 33.8 ng/mL 15.2 documented in this encounter [facility] 06-03-2024 Discharge summary [facility] 06-03-2024 Radiology Diagnostic study note [facility] Imaging Services [address] [place] [address] [id number] CTA Head AND Neck W/ Contrast MR#: [id number] Acct: [id number] Name: MARION GUTIERREZ Rep #: [id number] : 1995 F 28 From: Theresa Forrester MD PCP: Karuna Lim [facility] SR. MANAGER CORPORATE COMMUNICATIONS-C Status: REG ER Study:CTA Head AND Neck W/ Contrast Date of E xam: 06/03/24 Exam# [id number] Ordering Dr: Jorgito Galicia MD PROCEDURE: CT HEAD WITHOUT CONTRAST AND CTA HEAD AND NECK W/ CONTRAST 06/03/2024 REASON FOR EXAM: HEADACHE W/ RIGHT SIDED NEURO SX CP TECHNIQUE: CT head was performed without IV contrast. CTA head and neck was performed withIV contrast. Multiplanar reformats as well as MIP and 3D reconstructions were generated. CONTRAST: Isovue 370 VOLUME: 100 mL RADIATION DOSE SUMMARY: CTDlvol: 44.99+ 19.00+ 27.63+ 26.56 mGy DLP: 2640.27 mGycm Note that this represents the total for the CTA chest and CTA head/neck. One or more dose reduction techniques were used (e.g., Automated exposure control, adjustment of the mA and/or kV according to patient size, use of iterative reconstruction technique). COMPARISON: None. FINDINGS: CT HEAD: Limitation related to soft tissue attenuation through the inferior aspects of the field of view. Cerebrum: Unremarkable. Cerebellum/brainstem: Unremarkable. Note slight limitation due to beam hardeningartifact. Ventricles/extra-axial spaces: Unremarkable for age. Paranasal sinuses/mastoid air cells: Unremarkable. Scalp/calvarium: Unremarkable. Other: Unremarkable. CTA NECK: Sensitivity for arterial vascular abnormalities is considerably limited due to suboptimal contrast timing with greater opacification of the internal jugular veins than the systemic arteries intra opacified to roughly 196 Hounsfield units, as compared with 295 within the jugular bulbs. Exam additionally limited by photonstarvation. Aortic Arch: Grossly unremarkable. Three-vessel arch. Brachiocephalic and subclavians: Grossly unremarkable. RIGHT Carotid: Right CCA: Grossly unremarkable. Right ICA: Grossly unremarkable Right ECA: Grossly unremarkable LEFT Carotid: Left CCA: Grossly unremarkable Left ICA: Grossly unremarkable Left ECA: Grossly unremarkable Vertebrals: Not well evaluated. LEFT dominant. Distal intracranial V4 segment of the RIGHT vertebral is not well seen, presumably diminutive. Portions of the more inferior RIGHT vertebral artery arealso nonvisualized Other: Enlarged thyroid. CTA HEAD: Similar considerable limitation related to contrast timing and venous contamination as described detailed above. Anterior circulation: Grossly patent.. Posterior circulation: Nonvisualized V4 segment RIGHT vertebral artery as above. Otherwise grossly patent. Bilateral PICA nonvisualized. Questionable visualization of the AICA. Suspect origin ofthe LEFT OPERATING ROOM SCHEDULER with questionable diminutive posterior communicating artery, poorly delineated. Aneurysms: None definitely identified allowing for considerable limitations. Venous structures: Grossly unremarkable. Other: None.. CT/CTA Head AND Neck W/ Contrast IMPRESSION: 1. No visible acute noncontrast intracranial findings. If concern persists, consider MRI. 2. Considerably limited CTA due to contrast timing. In particular, the vertebral arteries are very poorly evaluated. The RIGHT vertebral artery is not well seen and could be diminutive or occluded. Otherwise, no definite high-grade stenosis or large vessel occlusion identified allowing for limitations. Given the extent of limitations, would consider a repeat CTA based on the level of clinical concern. 3. Additional description as above. Reading Location: [id number] CC: Dr. Jaylon Galicia MD; Karuna [facility] LAKESHAC Carina ~ General Accounting Manager: Signed [facility] 06-03-2024 Radiology Diagnostic study note [facility] Imaging Services [address] [place], [place] [id number] CTA Chest W/WO Contrast MR#: [id number] Acct: [id number] Name: MARION GUTIERREZ Rep #: [id number] : 1995 F 28 From: Theresa Forrester MD PCP: Karuna Lim [facility] HORTENSIA Status: REG ER Study:CTA Chest W/WO Contrast Date of Exam: 06/03/24 Exam# [id number] Ordering Dr: Jorgito Galicia MD PROCEDURE: CTA CHEST W/WO CONTRAST 06/03/2024 REASON FOR EXAM: CHEST PAIN, UNEQUAL BUE BP R SIDE NEURO SX TECHNIQUE: CTA imaging of the chest with intravenous contrast. Coronal and sagittal reconstruction series were provided. Maximum intensity projection (MIPs) and shaded surface rendering was provided. CONTRAST: Isovue 370 VOLUME: 100 mL One or more dose reduction techniques were used (e.g., Automated exposure control, adjustment of the mA and/or kV according to patient size, use of iterative reconstruction technique). RADIATION DOSE SUMMARY: CTDlvol: 44.99+ 19.00+ 27.63+ 26.56 mGy DLP: 2640.27 mGycm Note that these values correspond to the total for the CTA chest and CTA head/neck. COMPARISON: None. FINDINGS: Exam limited by generalized soft tissue attenuation as well as beam hardening/streak artifact related to thoracolumbar spinal fusion hardware. Exam additionally limited by beam hardening artifact related to the arms which were positioned at the sides rather than above the head. Moderate motion limitation. Heart/pericardium: Heart size is top-normal. Aorta: Grossly unremarkable within limitations of non gated technique and above technical factors. Pulmonary arteries: Top-normal in caliber. Lymph nodes: Grossly unremarkable. Lungs/pleura: Grossly unremarkable.. Airways: Somewhat expiratory appearance of the trachea. Chest wall: Small LEFT anterior chest wall collaterals with associated streak artifact. Upper abdomen: Partially imaged splenomegaly, at least 13.1 cm coronal. Partially imaged hepatomegaly also present. Musculoskeletal: Partially imaged thoracolumbar spinal fusion extending below the field of view with multilevel laminectomy. Cervicothoracic scoliosis. Suspected demineralization.. CT/CTA Chest W/WO Contrast IMPRESSION: 1. Limited exam as above. No definite acute abnormality allowing for limitations. 2. Partially imaged at least mild hepatosplenomegaly. Correlate with clinical and laboratory evaluation. 3. Additional description as above. Reading Location: [id number] CC: Dr. Jaylon Galicia MD; [facility] SR. MANAGER [employer]PORATE COMMUNICATIONS-C Carina ~ General Accounting Manager: Signed [facility] 06-03-2024 Radiology Diagnostic study note [facility] Imaging Services [address] [place] [id number] Abdomen Limited MR#: [id number] Acct: [id number] Name: MARION GUTIERREZ Rep #: [id number] : 1995 F 28 From: Colby Espitia MD PCP: Karuna Lim [facility] Status: REG CLI Study:Abdomen Limited Date of Exam: 05/20 07/13 Exam# [id number] Ordering Dr: Juventino Lim [facility] PROCEDURE: ABDOMEN LIMITED 06/03/2024 REASON FOR EXAM: RIGHT UPPER QUADRANT PAIN COMPARISON: Prior CT scan dated May 08, 2024. FINDINGS: Liver: Diffusely echogenic suggesting fatty infiltration. Hepatomegaly. The liver measures 21.5 cm. Gallbladder: No stones sludge wall thickening or tenderness. Gallbladder wall measures 2 mm. Common bile duct: Normal measuring 4 mm. . Pancreas: Normal Other: Visualized portions of the right kidney are unremarkable. No right upperquadrant ascites. US/Abdomen Limited IMPRESSION: Fatty infiltration of the liver. Hepatomegaly. Reading Location: [facility] CC: Karuna [facility] SR. MANAGER CORPORATE COMMUNICATIONS-C Beam ~ General Accounting Manager: Signed [facility] 06-02-2024 Note HNO ID: [id number] Author: LAURA CARSON, PhD Service: ? Author Type: Psychologist Type: Progress Notes Filed: 06/02/2024 16:36 Note Text: [facility] EVALUATION DATE OF SERVICE: June 02, 2024 TIME OF SERVICE: 2:30 pm COST CENTER: [facility] CPT CODE: 92290 Brief Emotional/Behavioral Assessment with scoring/documentation [id number] Virtual PSYCH DIAGNOSTIC EVAL BILLING CODE: Yamileth SESSION #: 1 The patient signed the Informed Consent for Psychological Evaluation AND Care Form, and the behavioral health care insurance benefits, fees for service, emergency procedures, and the limits of confidentiality that may pertain with any given case were discussed with the patient. Ms. Gutierrez was given a copy of the consent form. Virtual Visit:yes I have communicated my name and active licensure. If seen remotely, patient's identity and physical location were verified at the time of this visit. Either the patient or their legal sales representative consultant has been informed of the risks and benefits of -- and alternatives to -- treatment through a remote evaluation and consents to proceed with the evaluation remotely. IDENTIFYING INFORMATION Ms. Marion Gutierrez is a 28 year old female. She was referred by Dr. Cortes. [place] pt's mom was also in meeting. Mom is not currently medical power of commonwealth attorney but they have discussed this. Pt requested that mother stay on the call with her. Pt answered most of the questions without assistance from mother. REASON FOR REFERRAL Binge eating MEDICAL PROBLEMS ACTIVE PROBLEM LIST Bipolar Disorder (Hcc) Autism Spectrum Disorder (Hcc) Ophthalmic Migraine Headache, Chronic Daily High Myopia Obesity, Class Iii, Bmi 40-49.9 (Morbid Obesity) (Hcc) Pcos (Polycystic Ovarian Syndrome) Anxiety Gastroparesis Hirsutism Hypercholesterolemia Hidradenitis Hypertension Diabetes Mellitus (Hcc) Major Depression, Recurrent, Chronic Irritable Bowel Syndrome Migraine Headache Palpitations Scheuermann's Kyphosis (Hcc) Steatosis of Liver Suicide Attempt By Drug Ingestion (Hcc) Suicide Attempt (Hcc) Suicidal Ideation Binge Eating Disorder, Moderate History of Suicidal Ideation gastroparesis Interest in bariatric surgery? yes MEDICATIONS Current Outpatient Medications Medication Sig amLODIPine (NORVASC) 5 mg tablet (Patient not taking: Reported on 04/15/2024) cholecalciferol (VITAMIN D3) 1,000 unit tab tablet Take 1,000 Units by mouth once daily. lithium carbonate 600 mg capsule Take 600 mg by mouth daily at bedtime. pantoprazole DR (PROTONIX) 40 mg tablet Take 40 mg by mouth once daily. norgestimate 0.25 mg-ethinyl estradiol 35 mcg (SPRINTEC) 0.25-35 mg-mcg per tablet Take 1 tablet by mouth once daily. ARIPiprazole lauroxil ER (ARISTADA) 441 mg/1.6 mL injection Inject 441 mg intramuscularly every 4 weeks. Expect LabsTOUCH VERIO TEST STRIPS test strip 1 Each four times daily. AJOVY SYRINGE 225 mg/1.5 mL syringe INJECT 1.5ML (1 SYRINGE) SUBCUTANEOUSLY EVERY MONTH imipramine HCl (TOFRANIL) 25 mg tablet Take 25 mg by mouth daily at bedtime. lactulose 10 gram/15 mL solution TAKE 45 ML BY MOUTH TWICE DAILY NEEDED FOR CONSTIPATION. Expect LabsTOUCH DELICA PLUS LANCET 33 gauge 1 Each four times daily. metoclopramide HCl (REGLAN) 10 mg tablet Take 5 mg by mouth four times daily. metoprolol tartrate, short acting, (LOPRESSOR) 50 mg tablet Take 100 mg by mouth two times a day. (Patient taking differently: Take 200 mg by mouth two times a day.) ULTICARE PEN NEEDLE 32 gauge x 1/4 1 Each four times daily. polyethylene glycol 3350 17 gram/dose powder Take 17 g by mouth once daily. rizatriptan (MAXALT) 10 mg tablet Take 10 mg by mouth as needed for migraine headache (see administration instructions). simvastatin (ZOCOR) 20 mg tablet Take 20 mg by mouth daily at bedtime. ferrous sulfate 325 mg (65 mg iron) tablet Take 325 mg by mouth every other day. lithium carbonate (ESKALITH) 300 mg capsule Take 300 mg by mouth daily after breakfast. No current facility-administered medications for this visit. Diabetes is diet controlled 5.7%; diagnosed with diabetes 2-3 years ago. History of diet medications none History of psychiatric medications yes current ALLERGIES ALLERGIES Allergen Reactions Ondansetron Anaphylaxis, Other: See Comments Tongue swelling Broccoli Diarrhea Cauliflower Diarrhea Anti Depressants [T* Other: See Comments Patient states she must take anti-depressants with a mood stabilizer or else she becomes suicidal. Escitalopram Other: See Comments Suicidal ideation suicidal Suicidal thoughts Gluten Flour Diarrhea Lactase Diarrhea, GI Upset Eats dairy products, just limit amount Lexapro [Escitalopr* Mental Status Change Seasonal Allergies Cough Tomato GI Upset Zofran (Pf) In Dext* Swelling, GI Upset Metformin Diarrhea, GI Upset Pollen Extracts Hives, Intolera (more content not 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 [facility] 06-02-2024 History of Present illness Narrative Images from the original note were not included. [facility] EVALUATION DATE OF SERVICE: June 02, 2024 TIME OF SERVICE: 2:30 pm COST CENTER: [facility] CPT CODE: 24387 Brief Emotional/Behavioral Assessment with scoring/documentation [id number] Virtual PSYCH DIAGNOSTIC EVAL BILLING CODE: Yamileth SESSION #: 1 The patient signed the Informed Consent for Psychological Evaluation & Care Form, and the [facility] care insurance benefits, fees for service, emergency procedures, and the limits of confidentiality that may pertain with any given case were discussed with the patient. Ms. Gutierrez was given a copy of the consent form. Virtual Visit:yes I have communicated my name and active licensure. If seen remotely, patient's identity and physical location were verified at the time of this visit. Either the patient or their legal sales representative consultant has been informed of the risks and benefits of -- and alternatives to -- treatment through a remote evaluation and consents to proceed with the evaluation remotely. IDENTIFYING INFORMATION Ms. Marion Gutierrez is a 28 year old female. She was referred by Dr. Cortes. eduardo Osborne's mom was also in meeting. Mom is not currently medical power of commonwealth attorney but they have discussed this. Pt requested that mother stay on the call with her. Pt answered most of the questions without assistance from mother. REASON FOR REFERRAL Binge eating MEDICAL PROBLEMS ACTIVE PROBLEM LIST Bipolar Disorder (Hcc) Autism Spectrum Disorder (Hcc) Ophthalmic Migraine Headache, Chronic Daily High Myopia Obesity, Class Iii, Bmi 40-49.9 (Morbid Obesity) (Hcc) Pcos (Polycystic Ovarian Syndrome) Anxiety Gastroparesis Hirsutism Hypercholesterolemia Hidradenitis Hypertension Diabetes Mellitus (Hcc) Major Depression, Recurrent, Chronic Irritable Bowel Syndrome Migraine Headache Palpitations Scheuermann's Kyphosis (Hcc) Steatosis of Liver Suicide Attempt By Drug Ingestion (Hcc) Suicide Attempt (Hcc) Suicidal Ideation Binge Eating Disorder, Moderate History of Suicidal Ideation gastroparesis Interest in bariatric surgery? yes MEDICATIONS Current Outpatient Medications Medication Sig amLODIPine (NORVASC) 5 mg tablet (Patient not taking: Reported on 04/15/2024) cholecalciferol (VITAMIN D3) 1,000 unit tab tablet Take 1,000 Units by mouth once daily. lithium carbonate 600 mg capsule Take 600 mg by mouth daily at bedtime. pantoprazole DR (PROTONIX) 40 mg tablet Take 40 mg by mouth once daily. norgestimate 0.25 mg-ethinyl estradiol 35 mcg (SPRINTEC) 0.25-35 mg-mcg per tablet Take 1 tablet by mouth once daily. ARIPiprazole lauroxil ER (ARISTADA) 441 mg/1.6 mL injection Inject 441 mg intramuscularly every 4 weeks. Readz VERIO TEST STRIPS test strip 1 Each four times daily. AJOVY SYRINGE 225 mg/1.5 mL syringe INJECT 1.5ML (1 SYRINGE) SUBCUTANEOUSLY EVERY MONTH imipramine HCl (TOFRANIL) 25 mg tablet Take 25 mg by mouth daily at bedtime. lactulose 10 gram/15 mL solution TAKE 45 ML BY MOUTH TWICE DAILY NEEDED FOR CONSTIPATION. Expect LabsTOUCH DELICA PLUS LANCET 33 gauge 1 Each four times daily. metoclopramide HCl (REGLAN) 10 mg tablet Take 5 mg by mouth four times daily. metoprolol tartrate, short acting, (LOPRESSOR) 50 mg tablet Take 100 mg by mouth two times a day. (Patient taking differently: Take 200 mg by mouth two times a day.) ULTICARE PEN NEEDLE 32 gauge x 1/4 1 Each four times daily. polyethylene glycol 3350 17 gram/dose powder Take 17 g by mouth once daily. rizatriptan (MAXALT) 10 mg tablet Take 10 mg by mouth as needed for migraine headache (see administration instructions). simvastatin (ZOCOR) 20 mg tablet Take 20 mg by mouth daily at bedtime. ferrous sulfate 325 mg (65 mg iron) tablet Take 325 mg by mouth every other day. lithium carbonate (ESKALITH) 300 mg capsule Take 300 mg by mouth daily after breakfast. No current facility-administered medications for this visit. Diabetes is diet controlled 5.7%; diagnosed with diabetes 2-3 years ago. History of diet medications none History of psychiatric medications yes current ALLERGIES ALLERGIES Allergen Reactions Ondansetron Anaphylaxis, Other: See Comments Tongue swelling Broccoli Diarrhea Cauliflower Diarrhea Anti Depressants [T* Other: See Comments Patient states she must take anti-depressants with a mood stabilizer or else she becomes suicidal. Escitalopram Other: See Comments Suicidal ideation suicidal Suicidal thoughts Gluten Flour Diarrhea Lactase Diarrhea, GI Upset Eats dairy products, just limit amount Lexapro [Escitalopr* Mental Status Change Seasonal Allergies Cough Tomato GI Upset Zofran (Pf) In Dext* Swelling, GI Upset Metformin Diarrhea, GI Upset Pollen Extracts Hives, Intolerance EATING/WEIGHT HISTORY: From Dr. Cortes 05/16/24 Marion is a 28-year-old female with a history of PCOS, bipolar disorder, autism spectrum disorder, T2DM, anxiety, depression, NAFLD, migraines, gastroparesis, HTN, hyperlipidemia, IBS, and nephrolithiasis, presenting for weight management. Weight Management: - Current weight: 295.5 lbs. - Struggles with weight since third grade. - Attempts to lose weight include exercise and dietary changes (reducing carbs). - Appetite is generally high; engages in binge eating ~4 times/week. - Emotional eating occurs daily; late-night eating ~5 times/week. - Struggles with portion control daily. - No current exercise regimen due to dizziness and syncope episodes when walking. - Sleep: 10-12 hours/night, with difficulty falling and staying asleep; does not feel refreshed during the day. - Stressors include family life. - Working with a turner in on a Mediterranean diet. - Denies interest in bariatric surgery at this time. The patient reports a history of laxative/diuretic use. The patient reports a history of vomiting to lose weight. Last time 6 weeks ago; 3-4 times in the past year. The patient reports a history of an eating disorder. She has not had treatment for eating disorders in the past. Typical day of eating From Dr. Cortes 05/16/24 Diet and Eating behaviors 24h food recall: -- B: 10:30-11 AM. 1/2 sandwich of two pieces of [place] toast, a sausage bautista, fried egg. Glass of tomato juice -- L: Skipped -- D: 6 PM. Two pieces of stuffed chicken with brown, mashed potatoes and green beans7:30 PM. Grilled cheese sandwich -- Snacks: 7 PM. Small bag of potato chips -- Sugary beverages: Denies -- Dessert: Denies Appetite Control -- Appetite: Increased -- Binge eating: Yes Frequency: 4 times/week -- Emotional eating: Yes Frequency: Daily -- Late night eating: Yes Frequency: 5 times/week -- Portion control: Yes Frequency: Daily Current problem areas Emotional eating Yes depression, anxiety Skipping meals Yes SSB/Juice Yes cranberry juice 6-7 oz per day; Powerade 30 oz per day. 2 cans of pop per day [place] or chocolate milk 8 oz 2-3 times per week Calorie dense foods Yes; chips, pepperoni, salami, breads/potatoes Portion Control Yes Snacking Yes Night Eating Yes Restaurant eating No BINGE EATING ASSESSMENT: A. Recurrent episodes of binge eating. An episode is characterized by: 1. Eating a larger amount of food than normal during a short period of time (within any two hour period): Yes 2. Lack of control over eating during the binge episode (i.e. the feeling that one cannot stop eating): Yes B. Binge eating episodes are associated with three or more of the followin. Eating until feeling uncomfortably full: Yes 2. Eating large amounts of food when not physically hungry: Yes 3. Eating much more rapidly than normal: Yes 4. Eating alone because you are embarrassed by how much you're eating: Yes 5. Feeling disgusted, depressed, or guilty after overeating: Yes THREE ASSOCIATED SYMPTOMS MET? Yes C. Marked distress regarding binge eating is present: Yes D. Binge eating occurs, on average, at least 1 days a week for three months: Yes The patient reports almost daily binge episodes Pt throws up when she feels very uncomfortable. PATIENT MEETS ABOVE CRITERIA FOR BINGE EATING DISORDER:Yes Pt eats most of her food from 4-8 pm NIGHT EATING SYNDROME A. Demonstrates a significantly increased intake in the evening and/or nighttime, as evidenced by one or both of the following. 1. At least 25% of food is consumed after the evening meal: Yes 2. At least two episodes of nocturnal eating per week: No 2 x in past month. B. The clinical picture is characterized by three or more of the followin. Lack of desire to eat in the morning and/or breakfast is skipped four or more mornings per week: Yes 2. A strong urge to eat between dinner and sleep onset and/or during the night:Yes 3. Insomnia is present four or more nights per week (onset or maintenance): Yes I have to get up to pee because my blood sugars are very high. 4. Belief one must eat to initiate or return to sleep: No 5. Mood is frequently depressed or worsens in the evening: No C. Marked distress or impairment around night eating is present: Yes D. Night eating has occurred for at least 3 months: Yes PATIENT MEETS ABOVE CRITERIA FOR NIGHT EATING SYNDROME: Yes MENTAL HEALTH HISTORY Patient Data Binge Eating Scale (BES) 06/02/2024 Eating Habits Checklist Total Score 36 Patient-reported <18 = minimal binge eating, 18-26 = moderate binge eating, >27 = severe binge eating Generalized Anxiety Disorder Scale (BLANQUITA-7) 06/02/2024 BLANQUITA - 7 SCORES Score 18 (0-4) minimal anxiety, (5-9) mild anxiety, (10-14) moderate anxiety, (15-21) severe anxiety Patient Health Questionnaire (PHQ-9) 06/02/2024 PHQ-9 Score 16 (0-4) minimal depression, (5-9) mild depression, (10-14) moderate depression, (15-19) moderately severe depression, (20-27) severe depression 06/02/2024 PHQ-9 All Questions Little interest or pleasure in doing things: 1 Feeling down, depressed, or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 questions answered today. Medical Decision Making: Problems: Moderate: 2+ stable chronic illnesses Data: Unique test result(s) reviewed: 3+ Risk: Moderate: Moderate risk from testing/treatment and Drug management Medical Decision Making Level: 4 - Moderate Huey Cortes DO, PhD [facility] documented in [facility] Discharge summary [facility] Medical Records Department [address] [place] [address] Emergency Department Summary 05/15/24 MR#: [id number] Acct: [id number] Name: MARION GUTIERREZ Rep #:[id number] : 1995 28 From: Stan Lin DO PCP: REED Sotomayor, SR. MANAGER CORPORATE COMMUNICATIONS-C Statu s:REG ER Location: ED HPI History of Present Illness Chief Complaint: Chest Pain Narrative Narrative: Patient is a 28-year-old female with past medical history of GERD, depression, diabetes, bipolar disorder, PCOS, autism who presents to the emergency department with a chief complaint of chest pain and nausea vomiting. Patient states that she was cooking and developed chest pain is been going on for approximate hour and 1/2 to 2 hours. She states that she felt lightheaded as well and had to sit on the floor. States that her symptoms were not improving therefore she came here for evaluation management. Patient denies any sick contacts [facility] Medical History Alcohol use Picking own skin Low iron Fatty liver Gastroparesis Cardiology follow-up encounter Palpitations Obesity Depression Diabetes GERD (gastroesophageal reflux disease) Irregular heart beat Cellulitis History of echocardiogram Wears glasses Bipolar disorder Anxiety Arthritis Back pain Migraine headache Syncope Non-smoker Bipolar 1 disorder PCOS (polycystic ovarian syndrome) IBS (irritable bowel syndrome) Migraines Autism Home Medications ?Medication ?Instructions ?Recorded ?Last Taken ?Type lithium carbonate 300 mg capsule 300 mg PO DAILY Bipol ar 04/05/17 10/22/23 History ferrous sulfate 325 mg (65 mg 325 mg PO QODAY suppleme nt 01/24/22 10/21/23 History iron) tablet (FeroSul) lithium carbonate 600 mg capsule 600 mg PO QHS mental health 01/24/22 10/22/23 History fremanezumab-vfrm 225 mg/1.5 mL 225 mg subcut QMONTH m igraine 10/03/22 11/21/22 History subcutaneous auto-injector (Ajovy) aripiprazole lauroxil 441 mg/1.6 441 mg IM .COMPLEX [facility] 12/18/22 10/23/23 History mL suspension, ext.rel. IM syringe (Aristada) cholecalciferol (vitamin D3) 25 25 mcg PO DAILY vitami n 12/18/22 10/22/23 History mcg (1,000 unit) tablet (Vitamin D3) imipramine HCl 25 mg tablet 25 mg PO DAILY mental heal th 12/18/22 10/22/23 History mecobalamin (vitamin B12) 1,000 1,000 mcg PO DAILY 10/22/23 History mcg lozenges pantoprazole 40 mg tablet,delayed 40 mg PO DAILY 06/0210/22/23 History release simvastatin 20 mg tablet 20 mg PO QHS 06/03/23 History lactulose 10 gram/15 mL oral 30 g (45 mL) PO BID PRN 0 09/28/23 10/21/23 Rx solution constipation #473 mL hyoscyamine sulfate 0.125 mg tablet 0.125 mg PO BID-QI D PRN dyspepsia 10/10/23 10/21/23 Rx #30 tabs medroxyprogesterone 10 mg tablet 10 mg PO .COMPLEX #30 tabs 10/17/23 10/22/23 Rx polyethylene glycol 3350 17 4 g PO ONCE PRN constipati on 10/17/23 10/24/23 History gram/dose oral powder (Miralax) sucralfate 1 gram tablet 1 g PO TID PRN constipation 10/19/23 10/21/23 History diphenoxylate-atropine 2.5 1 tab PO BID PRN diarrhea # 30 tabs 10/29/23 Unknown Rx mg-0.025 mg tablet (Lomotil) metoclopramide HCl 10 mg tablet 5 mg (1/2 x 10 mg) PO BID nausea 04/22/24 Unknown Rx (Reglan) and vomiting #28 tabs metoprolol tartrate 50 mg tablet 50 mg PO BID #180 tab s 04/23/24 Unknown Rx amlodipine 10 mg tablet 5 mg (1/2 x 10 mg) PO QDAY # 90 tabs 05/05/24 Unknown Rx dicyclomine 20 mg tablet 20 mg PO TID PRN abdominal p ain 05/08/24 Unknown Rx #30 tabs metoclopramide HCl 10 mg tablet 10 mg PO Q6H PRN nause a and 05/08/24 Unknown Rx (Reglan) vomiting #20 tabs Allergy/AdvReac Type Severity Reaction Status Date / Time metformin Allergy Mild Nausea/Vom/ Verified 05/14/24 20:50 Diarrhea pollen extracts Allergy Hives Verified 05/14/24 20:50 escitalopram (From Lexapro) AdvReac Other Verified 05/14/24 20:50 lactase (From Dairy Aid) AdvReac Upset Verified 05/14/24 20:50 Stomach ondansetron (From Zofran (as AdvReac Anaphylaxis Verified 05/14/24 20:50 hydrochloride)) Family History Mother Uterine cancer Other Asthma Depression Diabetes GERD (gastroesophageal reflux disease) Heart disease Hyperlipidemia Hypertension Surgical History History of colonoscopy History of esophagogastroduodenoscopy (EGD) History of tonsillectomy and adenoidectomy H/O knee surgery H/O spinal fusion Social History household members: none housing: apartment current occupational status: unemployed history of recent travel: No Smoking Status: Never smoker alcohol intake: current alcohol intake frequency: holidays/special occasions only substance use type: does not use caffeine: Yes Type: carbonated beverages what type of physical activity do you participate in: walking frequency: daily seatbelt use: always do you feel safe at home: Yes additional social history: single ROS ROS ED ROS Narrative Constitutional: Denies fevers, chills, headaches Eyes: Denies double vision blurry vision Cardiovascular: Complains of chest pain as noted above denies any radiation denies palpitations Respiratory: Denies coughing wheezing shortness of breath Abdomen: Complains of nausea vomiting denies abdominal pain : Denies urinary symptoms Neurological: Denies numbness, weakness, tingling Musculoskeletal: Denies back pain Skin: Denies rashes or lesions EXAM Physical Exam Narrative Exam Narrative: General: Patient is lying in bed rest comfortably did not appear to be in acute distress Head: Atraumatic, normocephalic Eyes: PERRL bilateral, EOMI bilateral, no conjunctival injection noted Neck: Soft, supple, trachea midline Cardiovascular: Regular rate and rhythm no murmurs gallops rubs noted Respiratory: Clear to auscultation bilaterally Abdomen: Soft, nondistended, no tenderness palpation Extremities: +5/5 strength noted in the bilateral upper and lower extremities, radial pulse +2/4 inthe bilateral upper extremities, no pedal edema on exam Neurological: Patient following commands and that she was at [facility] year is 2024. NIH of 0 GCS 15 Skin: Warm, dry, intact no rashes or lesions noted Const Vital Signs: 05/14/24 20:47 05/14/24 22:34 05/14/24 22:38 Temperature 98.3 F Temperature Source Temporal Pulse Rate 94 84 Respiratory Rate 18 Blood Pressure 154/101 H 136/75 H Blood Pressure Mean 118 95 Pulse Ox 100 98 Oxygen Delivery Method Room Air Room Air Room Air MDM MDM MDM Narrative Medical decision making narrative: Patient is a 28-year-old female who presented to the emergency department with chief complaint chest pain nausea vomiting. On the differential diagnose includes but not limited to DKA, ACS, pneumonia, pneumothorax, GERD, anxiety. Once workup is obtained reviewed she will be reevaluated. Patient be given IV fluids and Reglan. Patient CBC reviewed and showed no evidence of leukocytosis white blood cell count normal 8.2, hemoglobin stable 12.7, plate count normal at 374. Patient sodium normal 136, potassium normal 4.1, creatinine was noted to be normal at 0.73. Patient anion gap normal at 11. Patient glucose 124. Patient's troponinwas less than 6 with a delta troponin of less than 6 as well. Patient chest x-ray reviewedby myself and by radiology showed no acute cardiopulmonary processes. Patient on reevaluation is feeling much improved she would like to go home at this point in time. She states that she has Reglan at home she was advised to use this as needed for nausea or vomiting. She is encouraged to follow-up with her primary care physician outpatient setting return to worsening symptoms or concerns. Mother at bedside is also agreeable to plan all question concerns answered she is discharged home in stable condition. Lab Data Labs: Laboratory Results - last 24 hr 05/14/24 05/14/24 21:03 23:16 WBC 8.2 RBC 4.72 Hgb 12.7 Hct 39.4 MCV 83.5 MCH 26.9 L MCHC 32.2 RDW Std Deviation 43.8 RDW Coeff of Delmy 14.5 Plt Count 374 MPV 9.0 Immature Gran % (Auto) 0.100 Neut % (Auto) 58.9 Lymph % (Auto) 31.2 Trigg % (Auto) 9.0 Eos % (Auto) 0.4 Baso % (Auto) 0.4 Absolute Neuts (auto) 4.8 Absolute Lymphs (auto) 2.55 Nucleated RBC % 0 Sodium 136 Potassium 4.1 Chloride 105 Carbon Dioxide 20.5 L Anion Gap 11 BUN 15 Creatinine 0.73 Estim Creat Clear Calc 161.90 Est GFR (MDRD) Non-Af 116 BUN/Creatinine Ratio 20.0 Glucose 124 H Calcium 9.5 Troponin T High Sens < 6 Troponin T Hi Sens 2 Hr < 6 Radiography Diagnostic Testing: Clinical Impression(s) from Imaging Studies Chest X-Ray 05/14/24 21:00 IMPRESSION: No Acute Findings. Reading Location: [facility] Discharge Plan Triage Chief Complaint: Chest Pain ED Provider: Stan Lin Dx/Rx/DC Orders Clinical Impression: Nausea & vomiting, Chest pain Prescriptions: No Action Ajovy Autoinjector 225 mg/1.5 mL auto-injector 225 mg subcut QMONTH Patient Comments: PT STATES USES BETWEEN FIRST AND FIFTH OF EACH MONTH; hasn't started yet medroxyprogesterone 10 mg tablet 10 mg PO .COMPLEX Qty: 30 4RF Rx Instructions: 10 mg orally first 10 days each month; T mecobalamin (vitamin B12) 1,000 mcg lozenge 1,000 mcg PO DAILY Rx Instructions: allow to dissolve in mouth OR may chew lightly before swallowing hyoscyamine sulfate 0.125 mg tablet 0.125 mg PO BID-QID PRN (Reason: dyspepsia) Qty: 30 0RF lithium carbonate 300 MG capsule 300 mg PO DAILY lithium carbonate 600 mg Capsule 600 mg PO QHS ferrous sulfate [FeroSul] 325 mg (65 mg iron) tablet 325 mg PO QODAY imipramine HCl 25 mg tablet 25 mg PO DAILY cholecalciferol (vitamin D3) [Vitamin D3] 25 mcg (1,000 unit) tablet 25 mcg PO DAILY Aristada 441 mg/1.6 mL suspension,extended rel syring 441 mg IM .COMPLEX Rx Instructions: 441 mg intramuscularly Q28D; polyethylene glycol 3350 [Miralax] 17 gram/dose powder 4 g PO ONCE PRN (Reason: constipation) sucralfate 1 gram tablet 1 g PO TID PRN (Reason: constipation) Rx Instructions: 1 g orally Take on an empty stomach. Hour before meals-lunch and dinner; do not take within 2 hoursbefore or after lithium metoclopramide HCl [Reglan] 10 mg tablet 10 mg PO Q6H PRN (Reason: nausea and vomiting) Qty: 20 0RF dicyclomine 20 mg tablet 20 mg PO TID PRN (Reason: abdominal pain) Qty: 30 0RF simvastatin 20 mg tablet 20 mg PO QHS pantoprazole 40 mg tablet,delayed release (DR/EC) 40 mg PO DAILY lactulose 10 gram/15 mL solution 30 g PO BID PRN (Reason: constipation) Qty: 473 1RF diphenoxylate-atropine [Lomotil] 2.5-0.025 mg tablet 1 tab PO BID PRN (Reason: diarrhea) Qty: 30 2RF metoclopramide HCl [Reglan] 10 mg tablet 5 mg PO BID Qty: 28 11RF metoprolol tartrate 50 mg tablet 50 mg PO BID Qty: 180 3RF amlodipine 10 mg tablet 5 mg PO QDAY Qty: 90 3RF Primary Care Provider: Naina Da Silva Referrals: Naina Da Silva, SR. MANAGER CORPORATE COMMUNICATIONS-C [Primary Care Provider] - Activity Restrictions/Additional Instructions: Follow with your primary care physician outpatient setting. Return with worsening symptoms or concerns. Chest x-ray is normal and your blood work was normal. Use your Reglan that you have at home fornausea and vomiting. Print Language: [place] Islander Disposition Disposition: Home, Self Care What to do if you have Problems For any increased pain, shortness of breath, bleeding, nausea or vomiting, chestpain, or any unexpected problems, contact your Primary Care Provider. Call [facility] ([phone]) or report tothe closest Emergency Room. Call 911 if necessary. 05/15/24 0013 Cosigner Signature (if applicable): CC: REED SR. MANAGER CORPORATE COMMUNICATIONS-C Naina Da Silva ~ Signed [facility]03-26-2025 Radiology Diagnostic study note [facility] Imaging Services [address] [place] [address] Chest 1 View (Portable) MR#: [id number] Acct: [id number] Name: MARION GUTIERREZ Rep #: [id number] : 1995 F 28 From: Jocelyne Strickland MD PCP: REED Sotomayor, SR. MANAGER CORPORATE COMMUNICATIONS-C Status: PRE ER Study:Chest 1 View (Portable) Date of Exam: 05/14/24 Exam# [id number] Ordering Dr: Provider ,Ed P. PROCEDURE: CHEST 1 VIEW (PORTABLE) 05/14/2024 REASON FOR EXAM: 28-year-old female, chest pain. TECHNIQUE: Frontal view of the chest. COMPARISON: CT abdomen pelvis 04/2024, chest radiograph 06/03/2023. FINDINGS: Hardware: Partially visualized extensive thoracolumbar stabilization rods. Heart: The heart size is normal. Lungs: No focal consolidation, pleural effusion or pneumothorax. Bones: The bones are unremarkable. RAD/Chest 1 View (Portable) IMPRESSION: No Acute Findings. Reading Location: [id number] CC: REED SR. MANAGER CORPORATE COMMUNICATIONS-C Naina Da Silva; ED PHYSICIAN PROVIDER ~ General Accounting Manager: Signed [facility]03-20-2025 Discharge summary [facility] Medical Records Department [address] [place] [address] Emergency Department Summary 05/08/24 MR#: [id number] Acct: [id number] Name: MARION GUTIERREZ Rep #:[id number] : 1995 28 From: Stan Lin DO PCP: Naina Da Silva, REED, SR. MANAGER CORPORATE COMMUNICATIONS-C Statu s:REG ER Location: ED HPI History of Present Illness Chief Complaint: Nausea/Vomiting Narrative Narrative: Patient is a 28-year-old female with a past medical history of gastroparesis, depression, diabetes,GERD, BMI of 46.2, bipolar, anxiety, PCOS, IBS who presented to the emergency department chief complaint abdominal pain nausea vomiting. Patient states that for the last week she has had abdominal pain nausea vomiting and states that today that her blood pressure at home was noted to be low therefore she came here for the valuation management. When questionedwhy she is checking her blood pressurestates that the doctor has her checking her blood pressure daily and keeping a log of this so they can evaluate her blood pressure further. Patient denies recent sick contacts. [facility] Medical History Alcohol use Picking own skin Low iron Fatty liver Gastroparesis Cardiology follow-up encounter Palpitations Obesity Depression Diabetes GERD (gastroesophageal reflux disease) Irregular heart beat Cellulitis History of echocardiogram Wears glasses Bipolar disorder Anxiety Arthritis Back pain Migraine headache Syncope Non-smoker Bipolar 1 disorder PCOS (polycystic ovarian syndrome) IBS (irritable bowel syndrome) Migraines Autism Home Medications ?Medication ?Instructions ?Recorded ?Last Taken ?Type lithium carbonate 300 mg capsule 300 mg PO DAILY Bipol ar 04/05/17 10/22/23 History ferrous sulfate 325 mg (65 mg 325 mg PO QODAY suppleme nt 01/24/22 10/21/23 History iron) tablet (FeroSul) lithium carbonate 600 mg capsule 600 mg PO QHS mental health 01/24/22 10/22/23 History fremanezumab-vfrm 225 mg/1.5 mL 225 mg subcut QMONTH m igraine 10/03/22 11/21/22 History subcutaneous auto-injector (Ajovy) aripiprazole lauroxil 441 mg/1.6 441 mg IM .COMPLEX [facility] 12/18/22 10/23/23 History mL suspension, ext.rel. IM syringe (Aristada) cholecalciferol (vitamin D3) 25 25 mcg PO DAILY vitami n 12/18/22 10/22/23 History mcg (1,000 unit) tablet (Vitamin D3) imipramine HCl 25 mg tablet 25 mg PO DAILY mental heal 12/18/22 10/22/23 History mecobalamin (vitamin B12) 1,000 1,000 mcg PO DAILY 10/22/23 History mcg lozenges pantoprazole 40 mg tablet,delayed 40 mg PO DAILY 06/0210/22/23 History release simvastatin 20 mg tablet 20 mg PO QHS 06/03/23 History lactulose 10 gram/15 mL oral 30 g (45 mL) PO BID PRN 0 09/28/23 10/21/23 Rx solution constipation #473 mL hyoscyamine sulfate 0.125 mg tablet 0.125 mg PO BID-QI D PRN dyspepsia 10/10/23 10/21/23 Rx #30 tabs medroxyprogesterone 10 mg tablet 10 mg PO .COMPLEX #30 tabs 10/17/23 10/22/23 Rx polyethylene glycol 3350 17 4 g PO ONCE PRN constipati on 10/17/23 10/24/23 History gram/dose oral powder (Miralax) sucralfate 1 gram tablet 1 g PO TID PRN constipation 10/19/23 10/21/23 History diphenoxylate-atropine 2.5 1 tab PO BID PRN diarrhea # 30 tabs 10/29/23 Unknown Rx mg-0.025 mg tablet (Lomotil) metoclopramide HCl 10 mg tablet 5 mg (1/2 x 10 mg) PO BID nausea 04/22/24 Unknown Rx (Reglan) and vomiting #28 tabs metoprolol tartrate 50 mg tablet 50 mg PO BID #180 tab s 04/23/24 Unknown Rx amlodipine 10 mg tablet 5 mg (1/2 x 10 mg) PO QDAY # 90 tabs 05/05/24 Unknown Rx dicyclomine 20 mg tablet 20 mg PO TID PRN abdominal p ain 05/08/24 Unknown Rx #30 tabs metoclopramide HCl 10 mg tablet 10 mg PO Q6H PRN nause a and 05/08/24 Unknown Rx (Reglan) vomiting #20 tabs Allergy/AdvReac Type Severity Reaction Status Date / Time metformin Allergy Mild Nausea/Vom/ Verified 05/08/24 14:40 Diarrhea pollen extracts Allergy Hives Verified 05/08/24 14:40 escitalopram (From Lexapro) AdvReac Other Verified 05/08/24 14:40 lactase (From Dairy Aid) AdvReac Upset Verified 05/08/24 14:40 Stomach ondansetron (From Zofran (as AdvReac Anaphylaxis Verified 05/08/24 14:40 hydrochloride)) Family History Mother Uterine cancer Other Asthma Depression Diabetes GERD (gastroesophageal reflux disease) Heart disease Hyperlipidemia Hypertension Surgical History History of colonoscopy History of esophagogastroduodenoscopy (EGD) History of tonsillectomy and adenoidectomy H/O knee surgery H/O spinal fusion Social History household members: none housing: apartment current occupational status: unemployed history of recent travel: No Smoking Status: Never smoker alcohol intake: current alcohol intake frequency: holidays/special occasions only substance use type: does not use caffeine: Yes Type: carbonated beverages what type of physical activity do you participate in: walking frequency: daily seatbelt use: always do you feel safe at home: Yes additional social history: single ROS ROS ED ROS Narrative Constitutional: Denies fevers, chills, headaches, lightness, dizziness Eyes: Denies change in vision double vision blurry vision Abdomen: Complains of abdominal pain nausea vomit diarrhea as noted above : Denies urinary symptoms Neurological: Denies numbness, weakness, tingling Musculoskeletal: Denies back pain Skin: Denies rashes or lesions EXAM Physical Exam Narrative Exam Narrative: General: Patient lying in bed rest comfortably did not appear to be in acute distress Head: Atraumatic, normocephalic Eyes: PERRL bilaterally, EOMI bilateral, no conjunctival injection noted Neck: Soft, supple, trachea midline Cardiovascular: Regular rate rhythm no murmurs gallops rubs noted Respiratory: Clear to auscultation bilaterally no rales rhonchi or wheezes noted Abdomen: Soft, nondistended, diffuse tenderness to palpation no rebound or guarding on exam Extremities: +5/5 strength noted in the bilateral upper and lower extremities Neurological: Patient follow commands that she was at [facility] years 2024 Skin: Warm, dry, intact no rashes or lesions noted Const Vital Signs: 05/08/24 14:36 05/08/24 16:58 Temperature 97.4 F L Temperature Source Temporal Pulse Rate 71 Pulse Rate [Lying] 72 Pulse Rate [Standing (for 1 minute prior to obtaining)] 76 Respiratory Rate 16 Blood Pressure 126/66 H Blood Pressure [Lying] 133/67 H Blood Pressure [Sitting (for 1 minute prior to obtaining)] 146/87 H Blood Pressure [Standing (for 1 minute prior to obtaining)] 139/83 H Blood Pressure Mean 86 Blood Pressure Mean [Lying] 89 Blood Pressure Mean [Sitting (for 1 minute prior to obtaining)] 106 Blood Pressure Mean [Standing (for 1 minute prior to obtaining)] 101 Pulse Ox 100 Oxygen Delivery Method Room Air MDM MDM MDM Narrative Medical decision making narrative: Patient is a 28-year-old female who presented to the emerged part with chief complaint abdominal pain nausea vomit diarrhea. On the differential diagnose includes Melamin to DKA, hyperglycemia, gastroparesis, cholecystitis, appendicitis. Once workup is obtained reviewed she will be reevaluated. Patient given IV fluids, Reglan and Bentyl. Patient CBC reviewed showed no evidence leukocytosis white blood count normal at7.8, hemoglobin 12.5, plate count was noted to be 356. Patient sodium normal 139, potassium normal at 4, creatinine normal at 0.48. Patient's anion gap normal at 8. Patient's AST and ALT are 1426 respectively. Patient'slipase normal at 32 test negative. Patient urinalysis reviewed showed no evidence of infection. She is not having urinary symptoms. Patient CT abdomen pelvis with IV contrast was reviewed showed no acute abdominal pelvic finding moderate hepatomegaly. Patient ambulated in the emergency department several times to the bathroom difficulty. Discussed results with the patient she would like to go home at this point time. She will given a prescription for Reglan she advised to do a brat diet and advance as tolerated. She is encouraged return with worsening symptoms or concerns otherwise she is to follow-up with her primary care physician outpatient setting. She is agreeable this plan as well as her family at bedsideall question concerns answered she was discharged home in stable condition. Lab Data Labs: Laboratory Results - last 24 hr 05/08/24 15:35 WBC 7.8 RBC 4.48 Hgb 12.5 Hct 37.3 MCV 83.3 MCH 27.9 MCHC 33.5 D RDW Std Deviation 43.0 RDW Coeff of Delmy 14.1 Plt Count 356 MPV 9.0 Immature Gran % (Auto) 0.300 Neut % (Auto) 58.1 Lymph % (Auto) 30.5 Trigg % (Auto) 10.3 H Eos % (Auto) 0.5 Baso % (Auto) 0.3 Absolute Neuts (auto) 4.5 Absolute Lymphs (auto) 2.37 Nucleated RBC % 0 Sodium 139 Potassium 4.0 Chloride 107 Carbon Dioxide 23.9 Anion Gap 8 BUN 13 Creatinine 0.48 L Estim Creat Clear Calc 243.10 Est GFR (MDRD) Non-Af 133 BUN/Creatinine Ratio 26.4 H Glucose 107 H Calcium 9.2 Total Bilirubin 0.21 AST 14 ALT 26 Alkaline Phosphatase 60 Total Protein 6.6 Albumin 3.9 Globulin 2.7 Albumin/Globulin Ratio 1.4 Lipase 32 Serum , Qual NEGATIVE Urine Color Yellow Urine Clarity Clear Urine pH 7.0 Ur Specific Piqua 1.005 Urine Protein 15 H Urine Glucose (UA) Normal Urine Ketones Negative Urine Occult Blood 10 H Urine Nitrite Negative Urine Bilirubin Negative Urine Urobilinogen Normal Ur Leukocyte Esterase 25 H Urine RBC 0-5 SEEN Urine WBC 5-10 SEEN Ur Squamous Epith Cells 0-5 SEEN Ur Transition Epith Cell 0-5 SEEN Urine Bacteria 1+ Urine Mucus 0 SEEN Radiography Diagnostic Testing: Clinical Impression(s) from Imaging Studies Abdomen/Pelvis CT 05/08/24 16:20 IMPRESSION: 1. No acute abdominopelvic finding. 2. Moderate hepatomegaly. Reading Location: [facility] Discharge Plan Triage Chief Complaint: Nausea/Vomiting ED Provider: Stan Lin Dx/Rx/DC Orders Clinical Impression: Nausea & vomiting Prescriptions: New metoclopramide HCl [Reglan] 10 mg tablet 10 mg PO Q6H PRN (Reason: nausea and vomiting) Qty: 20 0RF dicyclomine 20 mg tablet 20 mg PO TID PRN (Reason: abdominal pain) Qty: 30 0RF No Action Ajovy Autoinjector 225 mg/1.5 mL auto-injector 225 mg subcut QMONTH Patient Comments: PT STATES USES BETWEEN FIRST AND FIFTH OF EACH MONTH; hasn't started yet medroxyprogesterone 10 mg tablet 10 mg PO .COMPLEX Qty: 30 4RF Rx Instructions: 10 mg orally first 10 days each month; T mecobalamin (vitamin B12) 1,000 mcg lozenge 1,000 mcg PO DAILY Rx Instructions: allow to dissolve in mouth OR may chew lightly before swallowing hyoscyamine sulfate 0.125 mg tablet 0.125 mg PO BID-QID PRN (Reason: dyspepsia) Qty: 30 0RF lithium carbonate 300 MG capsule 300 mg PO DAILY lithium carbonate 600 mg Capsule 600 mg PO QHS ferrous sulfate [FeroSul] 325 mg (65 mg iron) tablet 325 mg PO QODAY imipramine HCl 25 mg tablet 25 mg PO DAILY cholecalciferol (vitamin D3) [Vitamin D3] 25 mcg (1,000 unit) tablet 25 mcg PO DAILY Aristada 441 mg/1.6 mL suspension,extended rel syring 441 mg IM .COMPLEX Rx Instructions: 441 mg intramuscularly Q28D; polyethylene glycol 3350 [Miralax] 17 gram/dose powder 4 g PO ONCE PRN (Reason: constipation) sucralfate 1 gram tablet 1 g PO TID PRN (Reason: constipation) Rx Instructions: 1 g orally Take on an empty stomach. Hour before meals-lunch and dinner; do not take within 2 hoursbefore or after lithium simvastatin 20 mg tablet 20 mg PO QHS pantoprazole 40 mg tablet,delayed release (DR/EC) 40 mg PO DAILY lactulose 10 gram/15 mL solution 30 g PO BID PRN (Reason: constipation) Qty: 473 1RF diphenoxylate-atropine [Lomotil] 2.5-0.025 mg tablet 1 tab PO BID PRN (Reason: diarrhea) Qty: 30 2RF metoclopramide HCl [Reglan] 10 mg tablet 5 mg PO BID Qty: 28 11RF metoprolol tartrate 50 mg tablet 50 mg PO BID Qty: 180 3RF amlodipine 10 mg tablet 5 mg PO QDAY Qty: 90 3RF Primary Care Provider: Naina Da Silva Referrals: Naina Da Silva, SR. MANAGER CORPORATE COMMUNICATIONS-C [Primary Care Provider] - Activity Restrictions/Additional Instructions: Follow-up your doctor in outpatient setting. Return with worsening symptoms or concerns. Your CT today did not show anything surgical. Use the prescriptions are sent to your pharmacy as prescribed. Print Language: Solomon Islander Disposition Disposition: Home, Self Care What to do if you have Problems For any increased pain, shortness of breath, bleeding, nausea or vomiting, chestpain, or any unexpected problems, contact your Primary Care Provider. Call [facility] ([phone]) or report tothe closest Emergency Room. Call 911 if necessary. 05/08/24 1717 Cosigner Signature (if applicable): CC: [facility] SR. MANAGER CORPORATE COMMUNICATIONS-C Naina Da Silva ~ Signed [facility]03-20-2025 Radiology Diagnostic study note [facility] Imaging Services [address] [place] [address] Abdomen/Pelvis W IV Cont ONLY MR#: [id number] Acct: [id number] Name: MARION GUTIERREZ Rep #: [id number] : 1995 F 28 From: Jocelyne Strickland MD PCP: REED Sotomayor, SR. MANAGER CORPORATE COMMUNICATIONS-C Status: REG ER Study:Abdomen/Pelvis W IV Cont ONLY Date of E xam: 05/08/24 Exam# [id number] Ordering Dr: Jojo Lin DO PROCEDURE: ABDOMEN/PELVIS W IV CONT ONLY 05/08/2024 REASON FOR EXAM: 28-year-old female, abdominal pain, nausea and vomiting x2 days, hypotension perpatient, acid reflux, PCOS, IBS, autism, bipolar, diabetes, spinal fusion. TECHNIQUE: Abdomen CT without and with intravenous contrast. Coronal and Sagittal reconstruction series were provided. PATIENT PREPARATION: Per protocol CONTRAST: Isovue-300 VOLUME: 100ML One or more dose reduction techniques were used (e.g., Automated exposure control, adjustment of the mA and/or kV according to patient size, use of iterative reconstruction technique. RADIATION DOSE SUMMARY: CTDlvol: 46 mGy DLP: 1812 mGycm COMPARISON: CT abdomen pelvis 09/24/2023. FINDINGS: Lung bases: The heart is normal in size. Low lung volumes bilaterally. Liver: Moderate hepatomegaly without focal hepatic mass. The major portal veinsare patent. No biliary ductal dilation. Gallbladder: No radiopaque stones within the gallbladder. Spleen: Pancreas: Unremarkable. Adrenals: Unremarkable. Kidneys: No hydronephrosis or nephrolithiasis. Bladder: Distended and unremarkable. Reproductive Organs: Normal uterine size and contour. Ovaries are unremarkable. Bowel: The bowel loops are normal in caliber. No ascites or pneumoperitoneum. Normal appendix. Stable cystic hypodensity within the right retroperitoneum at the hepatic flexure. Lymph nodes: No suspicious lymph node enlargement. Vasculature: The abdominal aorta and IVC are normal. Bones: Partially visualized extensive thoracolumbar stabilization rods, with stable configuration of the scoliotic spine curvature. No aggressive osseous lesions. CT/Abdomen/Pelvis W IV Cont ONLY IMPRESSION: 1. No acute abdominopelvic finding. 2. Moderate hepatomegaly. Reading Location: [id number] CC: [facility] SR. MANAGER CORPORATE COMMUNICATIONSJovanna Da Silva; Dr. Stan Lin DO ~ General Accounting Manager: Signed [facility]03-20-2025 Discharge summary Author Stan Lin [facility] Note Date/Time May 08, 2024 5:1 7pm [facility] Medical Records Department [address] [place] [address] Emergency Department Summary 05/08/24 MR#: [id number] Acct: [id number] Name: MARION GUTIERREZ Rep #:[id number] : 1995 28 From: Stan Lin DO PCP: Naina Da Silva [facility], SR. MANAGER CORPORATE COMMUNICATIONS-C Statu s:REG ER Location: ED HPI History of Present Illness Chief Complaint: Nausea/Vomiting Narrative Narrative: Patient is a 28-year-old female with a past medical history of gastroparesis, depression, diabetes, GERD, BMI of 46.2, bipolar, anxiety, PCOS, IBS who presented to the emergency department chief complaint abdominal pain nausea vomiting. Patient states that for the last week she has had abdominal pain nausea vomiting and states that today that her blood pressure at home was noted to be low therefore she came here for the valuation management. When questionedwhy she is checking her blood pressure states that the doctor has her checking her blood pressure daily and keeping a log of this so they can evaluate her blood pressure further. Patient denies recent sick contacts. [facility] Medical History Alcohol use Picking own skin Low iron Fatty liver Gastroparesis Cardiology follow-up encounter Palpitations Obesity Depression Diabetes GERD (gastroesophageal reflux disease) Irregular heart beat Cellulitis History of echocardiogram Wears glasses Bipolar disorder Anxiety Arthritis Back pain Migraine headache Syncope Non-smoker Bipolar 1 disorder PCOS (polycystic ovarian syndrome) IBS (irritable bowel syndrome) Migraines Autism Home Medications ?Medication ?Instructions ?Recorded ?Last Taken ?Type lithium carbonate 300 mg capsule 300 mg PO DAILY Bipol ar 04/05/17 10/22/23 History ferrous sulfate 325 mg (65 mg 325 mg PO QODAY suppleme nt 01/24/22 10/21/23 History iron) tablet (FeroSul) lithium carbonate 600 mg capsule 600 mg PO QHS mental health 01/24/22 10/22/23 History fremanezumab-vfrm 225 mg/1.5 mL 225 mg subcut QMONTH m igraine 10/03/22 11/21/22 History subcutaneous auto-injector (Ajovy) aripiprazole lauroxil 441 mg/1.6 441 mg IM .COMPLEX [facility] 12/18/22 10/23/23 History mL suspension, ext.rel. IM syringe (Aristada) cholecalciferol (vitamin D3) 25 25 mcg PO DAILY vitami n 12/18/22 10/22/23 History mcg (1,000 unit) tablet (Vitamin D3) imipramine HCl 25 mg tablet 25 mg PO DAILY mental heal 12/18/22 10/22/23 History mecobalamin (vitamin B12) 1,000 1,000 mcg PO DAILY 10/22/23 History mcg lozenges pantoprazole 40 mg tablet,delayed 40 mg PO DAILY 06/0210/22/23 History release simvastatin 20 mg tablet 20 mg PO QHS 06/03/23 History lactulose 10 gram/15 mL oral 30 g (45 mL) PO BID PRN 0 09/28/23 10/21/23 Rx solution constipation #473 mL hyoscyamine sulfate 0.125 mg tablet 0.125 mg PO BID-QI D PRN dyspepsia 10/10/23 10/21/23 Rx #30 tabs medroxyprogesterone 10 mg tablet 10 mg PO .COMPLEX #30 tabs 10/17/23 10/22/23 Rx polyethylene glycol 3350 17 4 g PO ONCE PRN constipati on 10/17/23 10/24/23 History gram/dose oral powder (Miralax) sucralfate 1 gram tablet 1 g PO TID PRN constipation 10/19/23 10/21/23 History diphenoxylate-atropine 2.5 1 tab PO BID PRN diarrhea # 30 tabs 10/29/23 Unknown Rx mg-0.025 mg tablet (Lomotil) metoclopramide HCl 10 mg tablet 5 mg (1/2 x 10 mg) PO BID nausea 04/22/24 Unknown Rx (Reglan) and vomiting #28 tabs metoprolol tartrate 50 mg tablet 50 mg PO BID #180 tab s 04/23/24 Unknown Rx amlodipine 10 mg tablet 5 mg (1/2 x 10 mg) PO QDAY # 90 tabs 05/05/24 Unknown Rx dicyclomine 20 mg tablet 20 mg PO TID PRN abdominal p ain 05/08/24 Unknown Rx #30 tabs metoclopramide HCl 10 mg tablet 10 mg PO Q6H PRN nause a and 05/08/24 Unknown Rx (Reglan) vomiting #20 tabs Allergy/AdvReac Type Severity Reaction Status Date / Time metformin Allergy Mild Nausea/Vom/ Verified 05/08/24 14:40 Diarrhea pollen extracts Allergy Hives Verified 05/08/24 14:40 escitalopram (From Lexapro) AdvReac Other Verified 05/08/24 14:40 lactase (From Dairy Aid) AdvReac Upset Verified 05/08/24 14:40 Stomach ondansetron (From Zofran (as AdvReac Anaphylaxis Verified 05/08/24 14:40 hydrochloride)) Family History Mother Uterine cancer Other Asthma Depression Diabetes GERD (gastroesophageal reflux disease) Heart disease Hyperlipidemia Hypertension Surgical History History of colonoscopy History of esophagogastroduodenoscopy (EGD) History of tonsillectomy and adenoidectomy H/O knee surgery H/O spinal fusion Social History household members: none housing: apartment current occupational status: unemployed history of recent travel: No Smoking Status: Never smoker alcohol intake: current alcohol intake frequency: holidays/special occasions only substance use type: does not use caffeine: Yes Type: carbonated beverages what type of physical activity do you participate in: walking frequency: daily seatbelt use: always do you feel safe at home: Yes additional social history: single ROS ROS ED ROS Narrative Constitutional: Denies fevers, chills, headaches, lightness, dizziness Eyes: Denies change in vision double vision blurry vision Abdomen: Complains of abdominal pain nausea vomit diarrhea as noted above : Denies urinary symptoms Neurological: Denies numbness, weakness, tingling Musculoskeletal: Denies back pain Skin: Denies rashes or lesions EXAM Physical Exam Narrative Exam Narrative: General: Patient lying in bed rest comfortably did not appear to be in acute distress Head: Atraumatic, normocephalic Eyes: PERRL bilaterally, EOMI bilateral, no conjunctival injection noted Neck: Soft, supple, trachea midline Cardiovascular: Regular rate rhythm no murmurs gallops rubs noted Respiratory: Clear to auscultation bilaterally no rales rhonchi or wheezes noted Abdomen: Soft, nondistended, diffuse tenderness to palpation no rebound or guarding on exam Extremities: +5/5 strength noted in the bilateral upper and lower extremities Neurological: Patient follow commands that she was at [facility] years 2024 Skin: Warm, dry, intact no rashes or lesions noted Const Vital Signs: 05/08/24 14:36 05/08/24 16:58 Temperature 97.4 F L Temperature Source Temporal Pulse Rate 71 Pulse Rate [Lying] 72 Pulse Rate [Standing (for 1 minute prior to obtaining)] 76 Respiratory Rate 16 Blood Pressure 126/66 H Blood Pressure [Lying] 133/67 H Blood Pressure [Sitting (for 1 minute prior to obtaining)] 146/87 H Blood Pressure [Standing (for 1 minute prior to obtaining)] 139/83 H Blood Pressure Mean 86 Blood Pressure Mean [Lying] 89 Blood Pressure Mean [Sitting (for 1 minute prior to obtaining)] 106 Blood Pressure Mean [Standing (for 1 minute prior to obtaining)] 101 Pulse Ox 100 Oxygen Delivery Method Room Air MDM MDM MDM Narrative Medical decision making narrative: Patient is a 28-year-old female who presented to the emerged part with chief complaint abdominal pain nausea vomit diarrhea. On the differential diagnose includes Melamin to DKA, hyperglycemia, gastroparesis, cholecystitis, appendicitis. Once workup is obtained reviewed she will be reevaluated. Patient given IV fluids, Reglan and Bentyl. Patient CBC reviewed showed no evidence leukocytosis white blood count normal at7.8, hemoglobin 12.5, plate count was noted to be 356. Patient sodium normal 139, potassium normal at 4, creatinine normal at 0.48. Patient's anion gap normal at 8. Patient's AST and ALT are 1426 respectively. Patient's lipase normal at 32 test negative. Patient urinalysis reviewed showed no evidence of infection. She is not having urinary symptoms. Patient CT abdomen pelvis with IV contrast was reviewed showed no acute abdominal pelvic finding moderate hepatomegaly. Patient ambulated in the emergency department several times to the bathroom difficulty. Discussed results with the patient she would like to go home at this point time. She will given a prescription for Reglan she advised to do a brat diet and advance as tolerated. She is encouraged return with worsening symptoms or concerns otherwise she is to follow-up with her primary care physician outpatient setting. She is agreeable this plan as well as her family at bedsideall question concerns answered she was discharged home in stable condition. Lab Data Labs: Laboratory Results - last 24 hr 05/08/24 15:35 WBC 7.8 RBC 4.48 Hgb 12.5 Hct 37.3 MCV 83.3 MCH 27.9 MCHC 33.5 D RDW Std Deviation 43.0 RDW Coeff of Delmy 14.1 Plt Count 356 MPV 9.0 Immature Gran % (Auto) 0.300 Neut % (Auto) 58.1 Lymph % (Auto) 30.5 Trigg % (Auto) 10.3 H Eos % (Auto) 0.5 Baso % (Auto) 0.3 Absolute Neuts (auto) 4.5 Absolute Lymphs (auto) 2.37 Nucleated RBC % 0 Sodium 139 Potassium 4.0 Chloride 107 Carbon Dioxide 23.9 Anion Gap 8 BUN 13 Creatinine 0.48 L Estim Creat Clear Calc 243.10 Est GFR (MDRD) Non-Af 133 BUN/Creatinine Ratio 26.4 H Glucose 107 H Calcium 9.2 Total Bilirubin 0.21 AST 14 ALT 26 Alkaline Phosphatase 60 Total Protein 6.6 Albumin 3.9 Globulin 2.7 Albumin/Globulin Ratio 1.4 Lipase 32 Serum , Qual NEGATIVE Urine Color Yellow Urine Clarity Clear Urine pH 7.0 Ur Specific [place]iqua 1.005 Urine Protein 15 H Urine Glucose (UA) Normal Urine Ketones Negative Urine Occult Blood 10 H Urine Nitrite Negative Urine Bilirubin Negative Urine Urobilinogen Normal Ur Leukocyte Esterase 25 H Urine RBC 0-5 SEEN Urine WBC 5-10 SEEN Ur Squamous Epith Cells 0-5 SEEN Ur Transition Epith Cell 0-5 SEEN Urine Bacteria 1+ Urine Mucus 0 SEEN Radiography Diagnostic Testing: Clinical Impression(s) from Imaging Studies Abdomen/Pelvis CT 05/08/24 16:20 IMPRESSION: 1. No acute abdominopelvic finding. 2. Moderate hepatomegaly. Reading Location: [facility] Discharge Plan Triage Chief Complaint: Nausea/Vomiting ED Provider: Stan Lin Dx/Rx/DC Orders Clinical Impression: Nausea & vomiting Prescriptions: New metoclopramide HCl [Reglan] 10 mg tablet 10 mg PO Q6H PRN (Reason: nausea and vomiting) Qty: 20 0RF dicyclomine 20 mg tablet 20 mg PO TID PRN (Reason: abdominal pain) Qty: 30 0RF No Action Ajovy Autoinjector 225 mg/1.5 mL auto-injector 225 mg subcut QMONTH Patient Comments: PT STATES USES BETWEEN FIRST AND FIFTH OF EACH MONTH; hasn't started yet medroxyprogesterone 10 mg tablet 10 mg PO .COMPLEX Qty: 30 4RF Rx Instructions: 10 mg orally first 10 days each month; T mecobalamin (vitamin B12) 1,000 mcg lozenge 1,000 mcg PO DAILY Rx Instructions: allow to dissolve in mouth OR may chew lightly before swallowing hyoscyamine sulfate 0.125 mg tablet 0.125 mg PO BID-QID PRN (Reason: dyspepsia) Qty: 30 0RF lithium carbonate 300 MG capsule 300 mg PO DAILY lithium carbonate 600 mg Capsule 600 mg PO QHS ferrous sulfate [FeroSul] 325 mg (65 mg iron) tablet 325 mg PO QODAY imipramine HCl 25 mg tablet 25 mg PO DAILY cholecalciferol (vitamin D3) [Vitamin D3] 25 mcg (1,000 unit) tablet 25 mcg PO DAILY Aristada 441 mg/1.6 mL suspension,extended rel syring 441 mg IM .COMPLEX Rx Instructions: 441 mg intramuscularly Q28D; polyethylene glycol 3350 [Miralax] 17 gram/dose powder 4 g PO ONCE PRN (Reason: constipation) sucralfate 1 gram tablet 1 g PO TID PRN (Reason: constipation) Rx Instructions: 1 g orally Take on an empty stomach. Hour before meals-lunch and dinner; do not take within 2 hours before or after lithium simvastatin 20 mg tablet 20 mg PO QHS pantoprazole 40 mg tablet,delayed release (DR/EC) 40 mg PO DAILY lactulose 10 gram/15 mL solution 30 g PO BID PRN (Reason: constipation) Qty: 473 1RF diphenoxylate-atropine [Lomotil] 2.5-0.025 mg tablet 1 tab PO BID PRN (Reason: diarrhea) Qty: 30 2RF metoclopramide HCl [Reglan] 10 mg tablet 5 mg PO BID Qty: 28 11RF metoprolol tartrate 50 mg tablet 50 mg PO BID Qty: 180 3RF amlodipine 10 mg tablet 5 mg PO QDAY Qty: 90 3RF Primary Care Provider: Naina Da Silva Referrals: Naina Da Silva, SR. MANAGER CORPORATE COMMUNICATIONS-C [Primary Care Provider] - Activity Restrictions/Additional Instructions: Follow-up your doctor in outpatient setting. Return with worsening symptoms or concerns. Your CT today did not show anything surgical. Use the prescriptions are sent to your pharmacy as prescribed. Print Language: [place] Islander Disposition Disposition: Home, Self Care What to do if you have Problems For any increased pain, shortness of breath, bleeding, nausea or vomiting, chestpain, or any unexpected problems, contact your Primary Care Provider. Call [facility] ([phone]) or report to the closest Emergency Room. Call 911 if necessary. 05/08/24 1717 <Electronically signed by Stan Lin DO> Cosigner Signature (if applicable): CC: [facility] SR. MANAGER CORPORATE COMMUNICATIONS-Kimi Da Silva ~ Signed [facility] Work Phone: [phone]) 328-509102-25-2025 Instructions* Patient Instructions* Jey Johnson MD - 04/15/2024 11:39 AM EST Endocrine weight amangement referral given, but if you choose to stay in [place], then you can schedule with OBGYN in this building Continue with the same control for now, making sure not to miss any pills during the month course If it continues to be irregular, please keep us informed documented in this encounterUniversity Hospitals St. [facility]25 NoteHNO ID: [id number] Author: JEY JOHNSON MD Service: ? Author Type: Physician Type: Progress Notes Filed: 04/20/2024 15:26 Note Text: Endocrinology and Metabolism [place] Follow up note Chief complaint: Evaluation of ovarian hyperandrogenism HPI Marion Gutierrez is a 28 year old female presenting for follow up evaluation of ovarian hyperandrogenism. She is accompanied by her father today LV 10/26/23 Also GI referral says, concerns for AI She has gastroparesis for the last 6 months or more She has dizziness and lightheadedness to the point that she passes out. She has bloating and low appetite, sleeping 16 hours a day in the last 2.5 months She has vomiting , diarrhea and both sometimes She has coloscopy yesterday and had polyps removed Hirsutism started: puberty Patient uses mechanical hair removal (i.e. tweezers/waxing/shaving): cream weekly History of deepening of voice: No History of change in genitalia: No LMP: not specific, may be 8 months Menstrual flow: 3 days, mostly spotting for a day or so Menarche: 17 to 18 years old- mother thinks she was in 6th grade, patient reports she was in high school Number of Pregnancies: no Planning a : no Currently taking oral contraception: no. She used OCPs in the past 3 years ago Now she is on provera for 10 days each month She used metformin but had intolerance Interval history: 04/15/24: She reports period from Mar 30 to and then again started on 04/13/24. Nothing like this was seen since starting OCPs in Dec 2023 Facial hair has improved. No other side effects. Not on aldactone now She reports she missed one pill in mar, whichshe is suspecting the reason to be for this. She has seen nutrition and is following instructions for conservative weight loss PAST MEDICAL HISTORY: PAST MEDICAL HISTORY Diagnosis Date Autism spectrum disorder Bipolar disorder (HCC) 05/2016 Borderline diabetic Fatty liver History of depression IBS (irritable bowel syndrome) diarrhea Iron deficiency anemia Kyphosis PAST SURGICAL HISTORY: PAST SURGICAL HISTORY Procedure Laterality Date ADDITIONAL SPINAL FUSION Thoraco-lumbar fusion KNEE SURGERY HX Left patellar fracture FAMILY HISTORY: FAMILY HISTORY Problem Relation Age of Onset Hypertension Father Heart Father Hypertension Mother Heart Mother Hypertension Brother Diabetes Paternal Grandfather Glaucoma Other SOCIAL HISTORY: Social History Tobacco Use Smoking status: Never Passive exposure: Never Smokeless tobacco: Never Vaping Use Vaping status: Never Used Substance Use Topics Alcohol use: No Drug use: No MEDICATIONS: Current Outpatient Medications on File Prior to Visit Medication Sig ARIPiprazole lauroxil ER (ARISTADA) 441 mg/1.6 mL injection Inject intramuscularly. Very 28 days ONETOUCH VERIO TEST STRIPS test strip Cyanocobalamin 1,000 mcg subl Take 1,000 mcg by mouth. AJOVY SYRINGE 225 mg/1.5 mL syringe INJECT 1.5ML (1 SYRINGE) SUBCUTANEOUSLY EVERY MONTH hyoscyamine (LEVSIN) 0.125 mg tablet imipramine HCl (TOFRANIL) 25 mg tablet Take by mouth. lactulose 10 gram/15 mL solution TAKE 45 ML BY MOUTH TWICE DAILY NEEDED FOR CONSTIPATION. ONETOUCH DELICA PLUS LANCET 33 gauge medroxyPROGESTERone (PROVERA) 10 mg tablet metoclopramide HCl (REGLAN) 10 mg tablet Take 5 mg by mouth. metoprolol tartrate, short acting, (LOPRESSOR) 50 mg tablet Take 1 tablet by mouth every 12 hours. ULTICARE PEN NEEDLE 32 gauge x 1/4 polyethylene glycol 3350 17 gram/dose powder MIX 4 GRAMS WITH LIQUID AND DRINK ONCE DAILY rizatriptan (MAXALT) 10 mg tablet Take by mouth as needed. simvastatin (ZOCOR) 20 mg tablet Take 20 mg by mouth daily at bedtime. sucralfate (CARAFATE) 1 gram tablet Take 1 g by mouth four times daily. hydrOXYzine pamoate (VISTARIL) 25 mg capsule ferrous sulfate 325 mg (65 mg iron) tablet Take 325 mg by mouth every other day. spironolactone (ALDACTONE) 50 mg tablet Take 50 mg by mouth two times a day. pantoprazole DR (PROTONIX) 20 mg tablet Take 40 mg by mouth once daily. lithium carbonate (ESKALITH) 300 mg capsule Take 300 mg by mouth daily after breakfast. cholecalciferol, Vitamin D3, (VITAMIN D3) 1,250 mcg (50,000 unit) cap capsule Take 1 capsule by mouth one time a week. (Patient not taking: Reported on 10/26/2023) No current facility-administered medications on file prior to visit. ALLERGIES: ALLERGIES Allergen Reactions Ondansetron Anaphylaxis, Other: See Comments Tongue swelling Broccoli Diarrhea Cauliflower Diarrhea Anti Depressants [T* Other: See Comments Patient states she must take anti-depressants with a mood stabilizer or else she becomes suicidal. Escitalopram Other: See Comments Suicidal ideation suicidal Suicidal thoughts Gluten Flour Diarrhea Lactase Diarrhea, GI Upset Eats dairy products, just limit amount Lexapro [Escitalopr* Mental Status Change Sea (more content not 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[facility]02-25-[facility] History of Present illness Narrative* Jey Johnson MD - 04/15/2024 11:26 AM EST Endocrinology and Metabolism [place] Follow up note Chief complaint: Evaluation of ovarian hyperandrogenism HPI Marion Gutierrez is a 28 year old female presenting for follow up evaluation of ovarian hyperandrogenism. She is accompanied by her father today LV 10/26/23 Also GI referral says, concerns for AI She has gastroparesis for the last 6 months or more She has dizziness and lightheadedness to the point that she passes out. She has bloating and low appetite, sleeping 16 hours a day in the last 2.5 months She has vomiting , diarrhea and both sometimes She has coloscopy yesterday and had polyps removed Hirsutism started: puberty Patient uses mechanical hair removal (i.e. tweezers/waxing/shaving): cream weekly History of deepening of voice: No History of change in genitalia: No LMP: not specific, may be 8 months Menstrual flow: 3 days, mostly spotting for a day or so Menarche: 17 to 18 years old- mother thinks she was in 6th grade, patient reports she was in high school Number of Pregnancies: no Planning a : no Currently taking oral contraception: no. She used OCPs in the past 3 years ago Now she is on provera for 10 days each month She used metformin but had intolerance Interval history: 04/15/24: She reports period from Mar 30 to and then again started on 04/13/24. Nothing like this was seensince starting OCPs in Dec 2023 Facial hair has improved. No other side effects. Not on aldactone now She reports she missed one pill in mar, whichshe is suspecting the reason to be for this. She has seen nutrition and is following instructions for conservative weight loss PAST MEDICAL HISTORY: PAST MEDICAL HISTORY Diagnosis Date Autism spectrum disorder Bipolar disorder (HCC) 05/2016 Borderline diabetic Fatty liver History of depression IBS (irritable bowel syndrome) diarrhea Iron deficiency anemia Kyphosis PAST SURGICAL HISTORY: PAST SURGICAL HISTORY Procedure Laterality Date ADDITIONAL SPINAL FUSION Thoraco-lumbar fusion KNEE SURGERY HX Left patellar fracture FAMILY HISTORY: FAMILY HISTORY Problem Relation Age of Onset Hypertension Father Heart Father Hypertension Mother Heart Mother Hypertension Brother Diabetes Paternal Grandfather Glaucoma Other SOCIAL HISTORY: Social History Tobacco Use Smoking status: Never Passive exposure: Never Smokeless tobacco: Never Vaping Use Vaping status: Never Used Substance Use Topics Alcohol use: No Drug use: No MEDICATIONS: Current Outpatient Medications on File Prior to Visit Medication Sig ARIPiprazole lauroxil ER (ARISTADA) 441 mg/1.6 mL injection Inject intramuscularly. Very 28 days ONETOUCH VERIO TEST STRIPS test strip Cyanocobalamin 1,000 mcg subl Take 1,000 mcg by mouth. AJOVY SYRINGE 225 mg/1.5 mL syringe INJECT 1.5ML (1 SYRINGE) SUBCUTANEOUSLY EVERY MONTH hyoscyamine (LEVSIN) 0.125 mg tablet imipramine HCl (TOFRANIL) 25 mg tablet Take by mouth. lactulose 10 gram/15 mL solution TAKE 45 ML BY MOUTH TWICE DAILY NEEDED FOR CONSTIPATION. ONETOUCH DELICA PLUS LANCET 33 gauge medroxyPROGESTERone (PROVERA) 10 mg tablet metoclopramide HCl (REGLAN) 10 mg tablet Take 5 mg by mouth. metoprolol tartrate, short acting, (LOPRESSOR) 50 mg tablet Take 1 tablet by mouth every 12 hours. ULTICARE PEN NEEDLE 32 gauge x 1/4 polyethylene glycol 3350 17 gram/dose powder MIX 4 GRAMS WITH LIQUID AND DRINK ONCE DAILY rizatriptan (MAXALT) 10 mg tablet Take by mouth as needed. simvastatin (ZOCOR) 20 mg tablet Take 20 mg by mouth daily at bedtime. sucralfate (CARAFATE) 1 gram tablet Take 1 g by mouth four times daily. hydrOXYzine pamoate (VISTARIL) 25 mg capsule ferrous sulfate 325 mg (65 mg iron) tablet Take 325 mg by mouth every other day. spironolactone (ALDACTONE) 50 mg tablet Take 50 mg by mouth two times a day. pantoprazole DR (PROTONIX) 20 mg tablet Take 40 mg by mouth once daily. lithium carbonate (ESKALITH) 300 mg capsule Take 300 mg by mouth daily after breakfast. cholecalciferol, Vitamin D3, (VITAMIN D3) 1,250 mcg (50,000 unit) cap capsule Take 1 capsule by mouth one time a week. (Patient not taking: Reported on 10/26/2023) No current facility-administered medications on file prior to visit. ALLERGIES: ALLERGIES Allergen Reactions Ondansetron Anaphylaxis, Other: See Comments Tongue swelling Broccoli Diarrhea Cauliflower Diarrhea Anti Depressants [T* Other: See Comments Patient states she must take anti-depressants with a mood stabilizer or else she becomes suicidal. Escitalopram Other: See Comments Suicidal ideation suicidal Suicidal thoughts Gluten Flour Diarrhea Lactase Diarrhea, GI Upset Eats dairy products, just limit amount Lexapro [Escitalopr* Mental Status Change Seasonal Allergies Cough Tomato GI Upset Zofran (Pf) In Dext* Swelling, GI Upset Metformin Diarrhea, GI Upset Pollen Extracts Hives, Intolerance ROS Pertinent as per HPI PHYSICAL EXAM Resp 20 Ht 170.2 cm (5' 7) Wt 132.3 kg (291 lb 9.6 oz) LMP 04/13/2024 (Exact Date) BMI 45.67 kg/m General Appearance: Well appearing, alert, in no acute distress, well- hydrated,obese body habitus Skin: pale thin stretch espinoza on upper abdomen noted Eyes: Extraocular movements are intact. Neck: Supple, no adenopathy; thyroid symmetric, normal size, no bruits. Lungs: unlabored breathing on room air Heart: RRR Abdomen: obese abdomen Extremities: No deformities, edema, skin discoloration, clubbing or cyanosis. Musculoskeletal: No joint swelling, deformity, or tenderness. Peripheral Pulses: Normal. Neurologic: Gait normal. Reflexes normal and symmetric. PREVIOUS DATA Diagnostic tests reviewed for today's visit: Cortisol and ACTH normal on 07/17/2023 Cortisol, 24 HR UR Free on 07-23-2023 CORTISOL,F/24hr 46 ug/24 hr High 6-42 [facility] CORTISOL,U FREE 16 ug/L Normal Undefined [facility] Metanephrine Frac 24 HR UR on 07-23-2023 Metaneph,UR 24H 68 ug/24 hr Normal 36-209 [facility] Metanephrines,U 24 ug/L Normal Undefined [facility] Normetan,UR 24h 522 ug/24 hr High 95-449 [facility] Normetanephrine 183 ug/L Normal Undefined [facility] Catecholamines, 24 UR on 07-20-2023 Dopamine, Urine 580 ug/L Normal Undefined [facility] Dopamine,U,24HR 957 ug/24 hr High 0-510 [facility] Epineph.,U,24HR 5 ug/24 hr Normal 0-20 [facility] Epinephrine, U 3 ug/L Normal Undefined [facility] Norepin.,U,24HR 134 ug/24 hr Normal 0-135 [facility] Comment on above: Order Comment: Test(s) 347460-Gxwsikijcej, Urine; [id number]- Norepinephrine, Ur; [id number]-Tjakrpjg, Urinewas developed and its performance characteristicsdetermined by [facility]. It has notbeen cleared or approvedby the Food and Drug Administration. Performed By: #### L3600.0150 ####[facility] [id number] [place], [place],[address] Norepinephrin,U 81 ug/L Normal Undefined [facility] Adrenocorticotropic Hormone on 07-17-2023 ACTH 9.7 pg/mL Normal 7.2-63.3 [facility] CORTISOL SERUM on 07-17-2023 CORTISOL 20.10 ug/dL Normal 3.44-22.45 [facility] Catecholamines, Plasma on 07-17-2023 DOPAMINE <30 Normal 0-48 [facility] EPINEPHRINE <15 Normal 0-62 [facility] NOREPINEPHRINE 429 pg/mL Normal 0-874 [facility] Gastrin, Serum on 07-17-2023 GASTRIN 265 pg/mL High 0-115 [facility] Insulin Level on 07-17-2023 INSULIN,FASTING 93.7 uIU/mL High 2.6-24.9 [facility] Insulin Like Growth Factor on 07-17-2023 SOMATOMEDIN C 122 ng/mL Normal 91-308 [facility] Chromogranin A 206.0 ng/mL Abnormal 0.0-101.8 [facility] Renin/Aldosterone Activity on 07-17-2023 ALD/RENIN RATIO 11.6 Normal 0.0-30.0 [facility] Performed By: #### L3400.1350, L3300.3500, L3300.1800, L3430.0100, L3300.1000, L3300.1050, L3100.4810 ####[facility] [id number] [place], [place], [address] ALDOSTERONE,S 45.0 ng/dL High 0.0-30.0 [facility] RENIN, PLASMA 3.873 ng/mL/hr Normal 0.167-5.380 [facility] BUN/CRE 18.1 RATIO Normal 10-20 [facility] CA,Total 9.0 mg/dL Normal 8.5-10.1 [facility] Chloride [Moles/Vol] 110 mmol/L High 98-107 [facility] CO2 [Moles/Vol] 25.0 mmol/L Normal 21.0-32.0 [facility] Creatinine [Mass/Vol] 0.66 mg/dL Normal 0.55-1.02 [facility] Performed By: #### L100.0100, L500.4050, L506.1000, L501.99911, L501.9520, L506.0400, L501.9060 ####[facility] [address] [place], [address] EST GFR - AA 138 mL/min Normal >60 [facility] Performed By: #### L100.0100, L500.4050, L506.1000, L501.59029, L501.9520, L506.0400, L501.9060 ####[facility] [address] [place], [address] GAP 3 Low 5-15 [facility] GFR/1.73 sq M.predicted among non-blacks MDRD (S/P/Bld) [Vol rate/Area] 114 mL/min/(1.73_m2) Normal>60 [facility] Globulin (S) [Mass/Vol] 3.8 g/dL Normal 2.2-4.2 [facility] Glucose [Mass/Vol] 124 mg/dL High 74-106 [facility] Performed By: #### L100.0100, L500.4050, L506.1000, L501.29551, L501.9520, L506.0400, L501.9060 ####[facility] [address] [place], [address] Potassium [Moles/Vol] 4.0 mmol/L Normal 3.5-5.1 [facility] Sodium [Moles/Vol] 138 mmol/L Normal 136-145 [facility] T PROT 7.0 g/dL Normal 6.4-8.2 [facility] Urea nitrogen [Mass/Vol] 12 mg/dL Normal 7-18 [facility] Free T3 on 07-05-2023 Free T3 [Mass/Vol] 2.4 pg/mL Normal 2.18-3.98 [facility] Comment on above: Performed By: #### L100.0100, L500.4050, L506.1000, L501.55964, L501.9520, L506.0400, L501.9060 ####[facility] [id number] [place], [address] [place] on 07-05-2023 LI 0.80 mmol/L Normal 0.60-1.20 [facility] T4 Free Direct on 07-05-2023 T4 FREE DIRECT 1.04 ng/dL Normal 0.76-1.46 [facility] Comment on above: Performed By: #### L100.0100, L500.4050, L506.1000, L501.86944, L501.9520, L506.0400, L501.9060 ####[facility] [id number] [place], [place], [address] Thyroid Stim Hormone (TSH) on 07-05-2023 TSH 2.10 uIU/mL Normal 0.358-3.74 [facility] Vitamin D,25 Hydroxy on 07-05-2023 Vitamin D 25-OH 30.3 ng/mL Normal [facility] Latest Ref Rng 12/05/2023 Sex Hormone Bind GLB 25 - 122 nmol/L 56 Testosterone Total 9 - 55 ng/dL 63 (H) Testosterone Free 0.8 - 7.4 pg/mL 8.0 (H) Testo Bioavailable 2.2 - 20.6 ng/dL 19.4 Hemoglobin A1C 4.3 - 5.6 % 5.7 (H) Estimated Average Glucose mg/dL 117 Hydroxyprogesterone <=206.00 ng/dL 48.26 DHEA-S 98.8 - 340.0 ug/dL 72.8 (L) Cortisol 4.8 - 19.5 ug/dL 13.6 ACTH 7.2 - 63.3 pg/mL 11.8 TSH 0.270 - 4.200 mIU/L 2.940 Free T4 0.9 - 1.7 ng/dL 1.3 Prolactin 4.4 - 33.8 ng/mL 15.2 Estradiol 17B pg/mL 66 FSH See comment mIU/mL 4.2 LH See comment mIU/mL 6.7 Insulin 3.0 - 25.0 mU/L 97.9 (H) Glucose, fasting ordered but not drawn Legend: (H) High (L) Low ASSESSMENT AND PLAN PCOS: She has a hx of autism in addition to PCOS Labs for irregular cycles completed along with insulin levels and Hba1c and discussed we can definethe diagnosis as PCOS, and that she has prediabetes Labs from chart review, 24 hr urine free cortisol checked at [facility], along with 24 hr urine metanephrines and catecholamines, within normal range/acceptable. Plasma metanephrines and catecholamines within normal range. Aldosterone and renin levels were checked and were within normal again, however patient has been onspironolactone and she could not confirm for how long she has been on it. Per chart review probablyon it since 08/08/2021. TSH, free T3, free T4 within normal, as was 25-hydroxy vitamin D Although no other symptoms, ACTH and cortisol checked for dizziness/lightheadedness are normal Discussed treatment of PCOS, (and hirsutism) being OCPs, metformin and mechanism of action of each,including aldactone. She is currently on GEOVANNA. Has irregularity in mar after being regular since 01/12 when COCs were initiated, ? likely due to missing a tablet , she believes. I am unsure which day of tablet this is. Recommended monitoring for now, continue same GEOVANNA and being consistent. If irregularity continues, will change dose or formulation Referral to dietitian given for conservative weight loss - she agrees this could be helpful Follow-up in 3 months. Medical Decision Making: Problems: Moderate: 1+ chronic illnesses with change Risk: Moderate: Moderate risk from testing/treatment Medical Decision Making Level: 4 - Moderate Jey Johnson MD Endocrinology Associate Staff [facility] Endocrinology and Metabolism [place] [phone] documented in this encounterUniversity [facility]als St. [facility]25 Telephone encounter Note * Telephone Encounter - Cora Bruce LPN - 04/15/2024 7:34 AM EST Left message for patient with negative results.Cora Bruce LPN [facility]02-25-2025 Miscellaneous Notes* Telephone Encounter - Cora Bruce LPN - 04/15/2024 7:34 AM EST Left message for patient with negative results.Cora Bruce LPN * Telephone Encounter - Ramón Galicia PA - 04/15/2024 7:09 AM EST Negative COVID flu RSV documented in this encounterUniversity Hospitals St. [facility]02-25-2025 Telephone encounter Note * Telephone Encounter - Ramón Galicia PA - 04/15/2024 7:09 AM EST Negative COVID flu RSV [facility] Work Phone: [phone] 493-783102-24-2025 [id number] (AGENT OF COVID-19) RNA: Not detected INFLUENZA A RNA: Not detected INFLUENZA B RNA: Not detected RESPIRATORY SYNCYTIAL VIRUS (RSV) RNA: Not detectedUniversity Hospitals Health SystemComment on above:Performed By: #### [id number] #### [facility] CLIA [id number] [address] [place] [address] OF USPCAIS20-10-1183 NoteHNO ID: [id number] Author: MJ BALDERAS MD Service: ? Author Type: Physician Type: Progress Notes Filed: 04/14/2024 16:34 Note Text: Patient presents with: Diarrhea: vomiting, cough, chills and fever x 4 days HPI: Feeling sick starting 4 days ago. 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 Positive symptoms: Cough, Fever, Chills, Vomiting, Diarrhea, Sore throat, Rhinorrhea, Chills, Malaise, Negative symptoms: Cough, OTC: imodium, pepto. MEDICATIONS: Current Outpatient Medications Medication Sig amLODIPine (NORVASC) 5 mg tablet cholecalciferol (VITAMIN D3) 1,000 unit tab tablet Take 1,000 Units by mouth once daily. lithium carbonate 600 mg capsule Take 600 mg by mouth daily at bedtime. pantoprazole DR (PROTONIX) 40 mg tablet Take 40 mg by mouth once daily. norgestimate 0.25 mg-ethinyl estradiol 35 mcg (SPRINTEC) 0.25-35 mg-mcg per tablet Take 1 tablet by mouth once daily. ARIPiprazole lauroxil ER (ARISTADA) 441 mg/1.6 mL injection Inject 441 mg intramuscularly every 4 weeks. [employer] Corporation[employer] VERIO TEST STRIPS test strip 1 Each four times daily. Cyanocobalamin 1,000 mcg subl Dissolve 1,000 mcg under the tongue once daily. AJOVY SYRINGE 225 mg/1.5 mL syringe INJECT 1.5ML (1 SYRINGE) SUBCUTANEOUSLY EVERY MONTH imipramine HCl (TOFRANIL) 25 mg tablet Take 25 mg by mouth daily at bedtime. lactulose 10 gram/15 mL solution TAKE 45 ML BY MOUTH TWICE DAILY NEEDED FOR CONSTIPATION. Expect LabsTOUCH DELICA PLUS LANCET 33 gauge 1 Each four times daily. metoclopramide HCl (REGLAN) 10 mg tablet Take 5 mg by mouth four times daily. metoprolol tartrate, short acting, (LOPRESSOR) 50 mg tablet Take 100 mg by mouth two times a day. ULTICARE PEN NEEDLE 32 gauge x 1/4 1 Each four times daily. polyethylene glycol 3350 17 gram/dose powder Take 17 g by mouth once daily. rizatriptan (MAXALT) 10 mg tablet Take 10 mg by mouth as needed for migraine headache (see administration instructions). simvastatin (ZOCOR) 20 mg tablet Take 20 mg by mouth daily at bedtime. ferrous sulfate 325 mg (65 mg iron) tablet Take 325 mg by mouth every other day. lithium carbonate (ESKALITH) 300 mg capsule Take 300 mg by mouth daily after breakfast. No current facility-administered medications for this visit. ALLERGIES: ALLERGIES Allergen Reactions Ondansetron Anaphylaxis, Other: See Comments Tongue swelling Broccoli Diarrhea Cauliflower Diarrhea Anti Depressants [T* Other: See Comments Patient states she must take anti-depressants with a mood stabilizer or else she becomes suicidal. Escitalopram Other: See Comments Suicidal ideation suicidal Suicidal thoughts Gluten Flour Diarrhea Lactase Diarrhea, GI Upset Eats dairy products, just limit amount Lexapro [Escitalopr* Mental Status Change Seasonal Allergies Cough Tomato GI Upset Zofran (Pf) In Dext* Swelling, GI Upset Metformin Diarrhea, GI Upset Pollen Extracts Hives, Intolerance VITALS: BP 142/98 Pulse 76 Temp 36.9 ?C (98.5 ?F) Resp 18 Wt 133.7 kg (294 lb 12.1 oz) LMP 12/29/2023 (Exact Date) SpO2 97% BMI 46.17 kg/m? PHYSICAL EXAM: GEN: mildly ill appearing HEENT: PERRL, EOMI, conjunctiva clear Ears: canals clear. TMs without erythema, bulge, or effusion Sinuses: non-tender frontal sinus, non-tender maxillary sinuses Throat: moist mucous membranes, mild erythema, no exudate Neck: supple, no thyromegaly, no lymphadenopathy HEART: regular rate, regular rhythm, no murmurs LUNGS: clear to auscultation, no wheezes or crackles, no increased WOB ABD: Soft, non-distended, tender RUQ and RLQ, no masses ASSESSMENT/PLAN: 1. Influenza-like illness - ICD9: 487.1, ICD10: J11.1 - COVID AND INFLUENZA A/B AND RSV PCR, ROUTINE. She will call for results if she cannot log into [employer] tomorrow. Continue supportive care for viral illness. She is beyond the therapeutic window for tamiflu. Mj Balderas, [facility]02-24-2025 History of Present illness Narrative* Mj Balderas MD - 04/14/2024 4:22 PM EST Patient presents with: Diarrhea: vomiting, cough, chills and fever x 4 days HPI: Feeling sick starting 4 days ago. 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 Positive symptoms: Cough, Fever, Chills, Vomiting, Diarrhea, Sore throat, Rhinorrhea, Chills, Malaise, Negative symptoms: Cough, OTC: imodium, pepto. MEDICATIONS: Current Outpatient Medications Medication Sig amLODIPine (NORVASC) 5 mg tablet cholecalciferol (VITAMIN D3) 1,000 unit tab tablet Take 1,000 Units by mouth once daily. lithium carbonate 600 mg capsule Take 600 mg by mouth daily at bedtime. pantoprazole DR (PROTONIX) 40 mg tablet Take 40 mg by mouth once daily. norgestimate 0.25 mg-ethinyl estradiol 35 mcg (SPRINTEC) 0.25-35 mg-mcg per tablet Take 1 tablet bymouth once daily. ARIPiprazole lauroxil ER (ARISTADA) 441 mg/1.6 mL injection Inject 441 mg intramuscularly every 4 weeks. Expect LabsTOUCH VERIO TEST STRIPS test strip 1 Each four times daily. Cyanocobalamin 1,000 mcg subl Dissolve 1,000 mcg under the tongue once daily. AJOVY SYRINGE 225 mg/1.5 mL syringe INJECT 1.5ML (1 SYRINGE) SUBCUTANEOUSLY EVERY MONTH imipramine HCl (TOFRANIL) 25 mg tablet Take 25 mg by mouth daily at bedtime. lactulose 10 gram/15 mL solution TAKE 45 ML BY MOUTH TWICE DAILY NEEDED FOR CONSTIPATION. Expect LabsTOUCH DELICA PLUS LANCET 33 gauge 1 Each four times daily. metoclopramide HCl (REGLAN) 10 mg tablet Take 5 mg by mouth four times daily. metoprolol tartrate, short acting, (LOPRESSOR) 50 mg tablet Take 100 mg by mouth two times a day. ULTICARE PEN NEEDLE 32 gauge x 1/4 1 Each four times daily. polyethylene glycol 3350 17 gram/dose powder Take 17 g by mouth once daily. rizatriptan (MAXALT) 10 mg tablet Take 10 mg by mouth as needed for migraine headache (see administration instructions). simvastatin (ZOCOR) 20 mg tablet Take 20 mg by mouth daily at bedtime. ferrous sulfate 325 mg (65 mg iron) tablet Take 325 mg by mouth every other day. lithium carbonate (ESKALITH) 300 mg capsule Take 300 mg by mouth daily after breakfast. No current facility-administered medications for this visit. ALLERGIES: ALLERGIES Allergen Reactions Ondansetron Anaphylaxis, Other: See Comments Tongue swelling Broccoli Diarrhea Cauliflower Diarrhea Anti Depressants [T* Other: See Comments Patient states she must take anti-depressants with a mood stabilizer or else she becomes suicidal. Escitalopram Other: See Comments Suicidal ideation suicidal Suicidal thoughts Gluten Flour Diarrhea Lactase Diarrhea, GI Upset Eats dairy products, just limit amount Lexapro [Escitalopr* Mental Status Change Seasonal Allergies Cough Tomato GI Upset Zofran (Pf) In Dext* Swelling, GI Upset Metformin Diarrhea, GI Upset Pollen Extracts Hives, Intolerance VITALS: BP 142/98 Pulse 76 Temp 36.9 C (98.5 F) Resp 18 Wt 133.7 kg (294 lb 12.1 oz) LMP 12/29/2023 (Exact Date) SpO2 97% BMI 46.17 kg/m PHYSICAL EXAM: GEN: mildly ill appearing HEENT: PERRL, EOMI, conjunctiva clear Ears: canals clear. TMs without erythema, bulge, or effusion Sinuses: non-tender frontal sinus, non-tender maxillary sinuses Throat: moist mucous membranes, mild erythema, no exudate Neck: supple, no thyromegaly, no lymphadenopathy HEART: regular rate, regular rhythm, no murmurs LUNGS: clear to auscultation, no wheezes or crackles, no increased WOB ABD: Soft, non-distended, tender RUQ and RLQ, no masses ASSESSMENT/PLAN: 1. Influenza-like illness - ICD9: 487.1, ICD10: J11.1 - COVID & INFLUENZA A/B & RSV PCR, ROUTINE. She will call for results if she cannot log into [employer] tomorrow. Continue supportive care for viral illness. She is beyond the therapeutic window for tamiflu. Mj Balderas MD documented in this encounterUniversity Hospitals St. [facility]01-06-2025 History of Present illness Narrative* Carissa Sherwood, RD - 02/25/2024 9:00 AM EST [facility] Medical Nutrition Therapy Visit Type: Virtual: I have discussed the nature of this visit with the patient which will occur via [facility] (Phone, Virtual Visit) and she agrees to proceed with this interaction.I have communicated my name and active licensure. The patient's identity and physical location were verified at the time of this visit. Either the patient or their legal sales representative consultant has been informed of the risks and benefits of -- and alternatives to -- treatment through a remote evaluation and consents to proceed with the evaluation remotely. Patient states reason for visit: PCOS and Weight Management Initial Borderline diabetes DEMOGRAPHICS: Co-Morbidities: PAST MEDICAL HISTORY Diagnosis Date Autism spectrum disorder Bipolar disorder (HCC) 05/2016 Borderline diabetic Fatty liver History of depression IBS (irritable bowel syndrome) diarrhea Iron deficiency anemia Kyphosis Gastroparesis Borderline diabetes Activity: Do you regularly exercise? No Symptoms: Patient's symptoms are as follows: Hypoglycemia How many hours of sleep on average? 8-10 hours - Relates difficulty falling and/or staying asleep. Diet History: Breakfast (within 30 min waking): Scrambled eggs w/ toast (w/ butter), OR cheese, OR leftovers, OR grits Snack: Lunch (11-12P): Can of spaghetti and meatballs, OR Salad (South Korean dressing, cheese, fried onions, croutons, wanton strips, and chicken nuggets), OR Ramen Noodles (whole pkt; may add bratwurst or scrambled egg) Snack (2P): crackers w/ cheese, or meat stick Dinner (5:30-6P): Pork w/ mashed potatoes and sauerkraut, Can of Gumbo soup, Can of Spaghetti soup,Eggs w/ toast Snack (7:30P): crackers Fluids: Water, Gatorade (20 ounces), or Juice (occasional) Dining/eating out? </=1x/week Allergies: No Broccoli No Cauliflower No Gluten No Tomato No Lactose Patient / Provider Comments: - Pt mother, [place], present for pt appointment. - Previous Weight Loss Attempts: relates skipping meals in the past and [facility] (relates no success w/ wt loss w/ this program) - Current medications for wt loss: - Monitoring BG via Freestyle Vin 2, Pt reports readings: -- Very High/High: 8-10% -- TIR (70-180 mg/dl):70% - Hypoglycemia: 40 mg/dl pt states a few days ago treats with pop/regular Gatorade/candy/or juice. Pt states occur primarily at night time if does not eat earlier on in the day- 2-4 times per week, has Gatorade and juice at bedside. S/s of low BG shakiness, blurred vision, and headache. - Hyperglycemia:1-2 times per week. Relates d/t food consumed. S/s of high BG shakiness, blurred vision, and headache. - Pt relates not currently taking medication to treat prediabetes. Per EMR pt borderline diabetes. Recent A1C 5.7% November 2023. - Hx of gastroparesis. - Pt states unable to drink SF beverages as it Spikes my blood sugar high even when I drink it alone. Medications: Current Outpatient Medications Medication Sig cholecalciferol (VITAMIN D3) 1,000 unit tab tablet Take 1,000 Units by mouth once daily. lithium carbonate 600 mg capsule Take 600 mg by mouth daily at bedtime. pantoprazole DR (PROTONIX) 40 mg tablet Take 40 mg by mouth once daily. norgestimate 0.25 mg-ethinyl estradiol 35 mcg (SPRINTEC) 0.25-35 mg-mcg per tablet Take 1 tablet bymouth once daily. ARIPiprazole lauroxil ER (ARISTADA) 441 mg/1.6 mL injection Inject 441 mg intramuscularly every 4 weeks. Readz VERIO TEST STRIPS test strip 1 Each four times daily. Cyanocobalamin 1,000 mcg subl Dissolve 1,000 mcg under the tongue once daily. AJOVY SYRINGE 225 mg/1.5 mL syringe INJECT 1.5ML (1 SYRINGE) SUBCUTANEOUSLY EVERY MONTH imipramine HCl (TOFRANIL) 25 mg tablet Take 25 mg by mouth daily at bedtime. lactulose 10 gram/15 mL solution TAKE 45 ML BY MOUTH TWICE DAILY NEEDED FOR CONSTIPATION. Expect LabsTOUCH DELICA PLUS LANCET 33 gauge 1 Each four times daily. metoclopramide HCl (REGLAN) 10 mg tablet Take 5 mg by mouth four times daily. metoprolol tartrate, short acting, (LOPRESSOR) 50 mg tablet Take 1 tablet by mouth every 12 hours. ULTICARE PEN NEEDLE 32 gauge x 1/4 1 Each four times daily. polyethylene glycol 3350 17 gram/dose powder Take 17 g by mouth once daily. rizatriptan (MAXALT) 10 mg tablet Take 10 mg by mouth as needed for migraine headache (see administration instructions). simvastatin (ZOCOR) 20 mg tablet Take 20 mg by mouth daily at bedtime. ferrous sulfate 325 mg (65 mg iron) tablet Take 325 mg by mouth every other day. lithium carbonate (ESKALITH) 300 mg capsule Take 300 mg by mouth daily after breakfast. No current facility-administered medications for this visit. Labs: Lab Results Component Value Date HBA1C 5.7 12/05/2023 No results found for: CHOL, HDL, LDL, TG Glucose (mg/dL) Date Value 12/05/2023 110 Potassium (mmol/L) Date Value 12/05/2023 4.4 Sodium (mmol/L) Date Value 12/05/2023 139 Chloride (mmol/L) Date Value 12/05/2023 109 CO2 (mmol/L) Date Value 12/05/2023 23 Creatinine (mg/dL) Date Value 12/05/2023 0.62 BUN (mg/dL) Date Value 12/05/2023 16 Anion Gap (mmol/L) Date Value 12/05/2023 7 Calcium, Total (mg/dL) Date Value 12/05/2023 9.3 Albumin (g/dL) Date Value 12/05/2023 4.0 ANTHROPOMETRICS Height: Last 1 Encounter Ht Readings: Date: Ht: 01/08/2024 170.2 cm (5' 7) Current weight: Last 3 Encounter Wt Readings: Date: Wt: 01/25/2024 135 kg (297 lb 9.9 oz) 01/24/2024 135 kg (297 lb 9.9 oz) 01/08/2024 133.4 kg (294 lb) BMI: 46.61 kg/m2 5% -10% Weight loss: 14.5-29 lbs Last Wt 01/25/24 : 135 kg (297 lb 9.9 oz) 5% weight loss = 283 lbs, 10% weight loss = 268 lbs [place] body weight: 61.6 kg (135 lb 12.9 oz) Adjusted ideal body weight: 91 kg (200 lb 8.5 oz) READINESS TO LEARN Cognitive ability: Alert and oriented Motivation to learn: Interested Family support: High - Very involved in pt care Instruction provided to: Patient and Mother Patient learns best by: Multiple Methods Factors affecting learning: None Physical limitations affecting learning: None Stage of Change: Preparation Nutrition Diagnosis: Food and nutrition related knowledge deficit, related to; lack of prior exposure to information , as evidenced by client has no prior knowledge of need for food and nutrition - related information Calories Needed for Current Weight: Resting Metabolic Rate: 2118 Nutrition Intervention: PCOS Pathophysiology -PCOS s/sx, Insulin resistance -Role of insulin in the body, role of glucose in the body, relationship of glucose and insulin in the body -A1c result, meaning and target <5.7%, Type 2 diabetes risk factors - Treating hypoglycemia and hyperglycemia events. Causes and ways to prevent. PCOS Nutrition -Plate Method: at least 1/2 plate filled with low carb vegetables, 1/4 plate with a protein food that is not fried, 1/4 plate high fiber starch/carb. -carbohydrate and protein sources and effect on weight management, blood sugar regulation, and metabolism. -Impact of fiber on s/s of gastroparesis. - Increase meal frequency to 4-6 small meals per day. Space meals 3-5 hours a part. - Limit intake of high-fat foods - choose low or reduced fat dairy products, lean protein sources, and limit intake of whole nuts/seeds. Always choose low fat food options- consume <65 grams fat daily. - Limit fiber intake to ~2-3 grams fiber per meal/snack- choose grain that contain </=2 grams fiber per serving, choose canned (low sodium) or frozen vegetables cooking until fork tender (no raw vegetables or fruit), and canned or cooked fruit (canned fruit packed in 100% fruit juice or water). - Always chew foods thoroughly before swallowing. -portion sizes for commonly eaten carbohydrate foods -Consider keeping carbohydrate to at each meal to 30 grams and </=15 grams at snack. -Balanced eating, focusing on pairing carbs with other nutrients (no naked carbs) - Consider consuming at least 3-4 ounces protein at meals and 1 ounce at snack -Including (preferably lean) protein sources at each meal and snack (fish or lean meats, beans and legumes, nuts and seeds, dairy products, etc.) -Heart healthy fats including healthy fats such as olive oil, avocado, nuts and fish -Reading food labels for serving size, total carbohydrate, fiber, and protein. - Using hands as portioning tools for carbohydrates, protein, and NS vegetables. -Reducing ultra-processed foods when ready/ able. - Encouraged increased water/fluid consumption to promote healthy hydration to decrease food cravings- aim to consume water or SF beverages with goal 64 ounces per day. -Using meal replacements or pre-made balanced snacks as needed to avoid skipping meals -Stressed tactics for planning achievable, satisfying, and rewarding meals and snacks -Endorsed pts' own food traditions and preferences -reviewed a sample carb controlled Mediterranean style menu - Provided and discussed free nutrition apps that can be useful on weight loss journey. PCOS Exercise Recommendations -Exercise benefits for PCOS -Types of exercise -Aerobic exercise recommendations for increasing insulin sensitivity (150 min per week, 10-20 min increased heart rate at a time, etc.) - Discussed exercise physiologists available to patient to assist with helping pt establish exercise routine. Recommended pt reach out to their referring provider for a referral endocrinology cardiology physician assistant services. Possible Medications/ Supplements for PCOS and Insulin Resistance -Common PCOS supplements (marysol- and D-chiro inositol, Mg, etc.). Recommended to always talk with doctor prior to taking any nutrition supplements. Education Materials: PCOS & You Thriving with the Mediterranean Lifestyle Nutrition Monitoring & Evaluation: Dietitian Goals: Maintained OR Improved Blood Glucose Control by next A1C test Weight Reduction of 5-10% within 6 months Criteria: Blood Glucose Values, A1C, and Weight Patient Stated Goals at today's visit: Always pair carbohydrate with protein and/or healthy fat. Adherence Potential to Goals: Good Need for Follow up: TBD Referred by: Jey Johnson* Carissa Sherwood RD Consult Billing Type/Increments: Initial Assessment/15 minutes, 4 increment(s), 60 minutes Start time: 9:08 End time: 10:04 My final report will be communicated back to the requesting physician by way of shared medical record. Signed by: Carissa Sherwood RD documented in this encounterUniversity [facility] NoteHNO ID: [id number] Author: CARISSA SHERWOOD RD Service: ? Author Type: Registered Dietitian Type: Progress Notes Filed: 02/25/2024 11:20 Note Text: [facility] Medical Nutrition Therapy Visit Type: Virtual: I have discussed the nature of this visit with the patient which will occur via [employer] (Phone, Virtual Visit) and she agrees to proceed with this interaction.I have communicated my name and active licensure. The patient's identity and physical location were verified at the time of this visit. Either the patient or their legal sales representative consultant has been informed of the risks and benefits of -- and alternatives to -- treatment through a remote evaluation and consents to proceed with the evaluation remotely. Patient states reason for visit: PCOS and Weight Management Initial Borderline diabetes DEMOGRAPHICS: Co-Morbidities: PAST MEDICAL HISTORY Diagnosis Date Autism spectrum disorder Bipolar disorder (HCC) 05/2016 Borderline diabetic Fatty liver History of depression IBS (irritable bowel syndrome) diarrhea Iron deficiency anemia Kyphosis Gastroparesis Borderline diabetes Activity: Do you regularly exercise? No Symptoms: Patient's symptoms are as follows: Hypoglycemia How many hours of sleep on average? 8-10 hours - Relates difficulty falling and/or staying asleep. Diet History: Breakfast (within 30 min waking): Scrambled eggs w/ toast (w/ butter), OR cheese, OR leftovers, OR grits Snack: Lunch (11-12P): Can of spaghetti and meatballs, OR Salad (South Korean dressing, cheese, fried onions, croutons, wanton strips, and chicken nuggets), OR Ramen Noodles (whole pkt; may add bratwurst or scrambled egg) Snack (2P): crackers w/ cheese, or meat stick Dinner (5:30-6P): Pork w/ mashed potatoes and sauerkraut, Can of Gumbo soup, Can of Spaghetti soup, Eggs w/ toast Snack (7:30P): crackers Fluids: Water, Gatorade (20 ounces), or Juice (occasional) Dining/eating out? Allergies: No Broccoli No Cauliflower No Gluten No Tomato No Lactose Patient / Provider Comments: - Pt mother, [place], present for pt appointment. - Previous Weight Loss Attempts: relates skipping meals in the past and [facility] Weight Program (relates no success w/ wt loss w/ this program) - Current medications for wt loss: - Monitoring BG via Freestyle Vin 2, Pt reports readings: -- Very High/High: 8-10% -- TIR (70-180 mg/dl):70% - Hypoglycemia: 40 mg/dl pt states a few days ago treats with pop/regular Gatorade/candy/or juice. Pt states occur primarily at night time if does not eat earlier on in the day- 2-4 times per week, has Gatorade and juice at bedside. S/s of low BG shakiness, blurred vision, and headache. - Hyperglycemia:1-2 times per week. Relates d/t food consumed. S/s of high BG shakiness, blurred vision, and headache. - Pt relates not currently taking medication to treat prediabetes. Per EMR pt borderline diabetes. Recent A1C 5.7% November 2023. - Hx of gastroparesis. - Pt states unable to drink SF beverages as it Spikes my blood sugar high even when I drink it alone. Medications: Current Outpatient Medications Medication Sig cholecalciferol (VITAMIN D3) 1,000 unit tab tablet Take 1,000 Units by mouth once daily. lithium carbonate 600 mg capsule Take 600 mg by mouth daily at bedtime. pantoprazole DR (PROTONIX) 40 mg tablet Take 40 mg by mouth once daily. norgestimate 0.25 mg-ethinyl estradiol 35 mcg (SPRINTEC) 0.25-35 mg-mcg per tablet Take 1 tablet by mouth once daily. ARIPiprazole lauroxil ER (ARISTADA) 441 mg/1.6 mL injection Inject 441 mg intramuscularly every 4 weeks. Readz VERIO TEST STRIPS test strip 1 Each four times daily. Cyanocobalamin 1,000 mcg subl Dissolve 1,000 mcg under the tongue once daily. AJOVY SYRINGE 225 mg/1.5 mL syringe INJECT 1.5ML (1 SYRINGE) SUBCUTANEOUSLY EVERY MONTH imipramine HCl (TOFRANIL) 25 mg tablet Take 25 mg by mouth daily at bedtime. lactulose 10 gram/15 mL solution TAKE 45 ML BY MOUTH TWICE DAILY NEEDED FOR CONSTIPATION. ONETOUCH DELICA PLUS LANCET 33 gauge 1 Each four times daily. metoclopramide HCl (REGLAN) 10 mg tablet Take 5 mg by mouth four times daily. metoprolol tartrate, short acting, (LOPRESSOR) 50 mg tablet Take 1 tablet by mouth every 12 hours. ULTICARE PEN NEEDLE 32 gauge x 1/4 1 Each four times daily. polyethylene glycol 3350 17 gram/dose powder Take 17 g by mouth once daily. rizatriptan (MAXALT) 10 mg tablet Take 10 mg by mouth as needed for migraine headache (see administration instructions). simvastatin (ZOCOR) 20 mg tablet Take 20 mg by mouth daily at bedtime. ferrous sulfate 325 mg (65 mg iron) tablet Take 325 mg by mouth every other day. lithium carbonate (ESKALITH) 300 mg capsule Take 300 mg by mouth daily after breakfast. No current facility-administered medications for this visit. Labs: Lab Results Component V (more content not 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[facility]12[facility] NoteHNO ID: [id number] Author: LOUIS SCHMIDT APRN.INTERNAL COMBUSTION ENGINEER Service: ? Author Type: Nurse Practitioner Type: Progress Notes Filed: 01/25/2024 12:56 Note Text: CC: Patient presents with: Ear Pain: Left ear pain felt pop, feels clogged had blood and pus drainage started last night @ 830pm HPI: Marion Gutierrez is a 28 year old female who presents to the office with complaint of ear symptoms since last night. Symptoms are staying the same. Associated symptoms includes ear pain. Denies fever, nausea, vomiting , and diarrhea. Treatments tried include nothing so far. with no relief of symptoms. Sick contacts: unknown. History of asthma, frequent episodes of bronchitis, chronic bronchitis, bronchiectasis or COPD: No Smoker: No Seasonal/environmental allergies: No The ROS is otherwise negative. The patient's pmh, medications, allergies, and past visits are reviewed. PHYSICAL EXAM: BP 132/90 Pulse 69 Temp 37 ?C (98.6 ?F) Resp 20 Wt 135 kg (297 lb 9.9 oz) LMP 12/29/2023 (Exact Date) SpO2 100% BMI 46.61 kg/m? General appearance: alert, cooperative, pleasant, in no acute distress Head: Normocephalic Eyes: EOM's intact, conjunctiva pink and moist, no icterus, sclera white, non-injected Ears: Right ear: External ear/canal- Normal, TM - clear with good landmarks. Left ear: External ear/canal- otitis externa, TM - erythematous, purulent effusion present Oropharynx:moist without lesions, No erythema, exudates or tonsillar hypertrophy. Heart: Negative. RRR without obvious murmur, gallop, or rubs. No ectopy. Lungs: clear to auscultation, without rales or wheeze, good air exchange PAST MEDICAL HISTORY Diagnosis Date Autism spectrum disorder Bipolar disorder (HCC) 05/2016 Borderline diabetic Fatty liver History of depression IBS (irritable bowel syndrome) diarrhea Iron deficiency anemia Kyphosis PAST SURGICAL HISTORY Procedure Laterality Date ADDITIONAL SPINAL FUSION Thoraco-lumbar fusion KNEE SURGERY HX Left patellar fracture ALLERGIES Ondansetron, Broccoli, Cauliflower, Anti Depressants [Tricyclic Antidepressants And Tricyclic Compounds], Escitalopram, Gluten Flour, Lactase, Lexapro [Escitalopram Oxalate], Seasonal Allergies, Tomato, Zofran (Pf) In Dextrose [Ondansetron (Pf) In Dextrose], Metformin, and Pollen Extracts MEDICATIONS cholecalciferol (VITAMIN D3) 1,000 unit tab tablet Take 1,000 Units by mouth once daily. lithium carbonate 600 mg capsule Take 600 mg by mouth daily at bedtime. pantoprazole DR (PROTONIX) 40 mg tablet Take 40 mg by mouth once daily. norgestimate 0.25 mg-ethinyl estradiol 35 mcg (SPRINTEC) 0.25-35 mg-mcg per tablet Take 1 tablet by mouth once daily. ARIPiprazole lauroxil ER (ARISTADA) 441 mg/1.6 mL injection Inject 441 mg intramuscularly every 4 weeks. Readz VERIO TEST STRIPS test strip 1 Each four times daily. Cyanocobalamin 1,000 mcg subl Dissolve 1,000 mcg under the tongue once daily. AJOVY SYRINGE 225 mg/1.5 mL syringe INJECT 1.5ML (1 SYRINGE) SUBCUTANEOUSLY EVERY MONTH imipramine HCl (TOFRANIL) 25 mg tablet Take 25 mg by mouth daily at bedtime. lactulose 10 gram/15 mL solution TAKE 45 ML BY MOUTH TWICE DAILY NEEDED FOR CONSTIPATION. Expect LabsTOUCH DELICA PLUS LANCET 33 gauge 1 Each four times daily. metoclopramide HCl (REGLAN) 10 mg tablet Take 5 mg by mouth four times daily. metoprolol tartrate, short acting, (LOPRESSOR) 50 mg tablet Take 1 tablet by mouth every 12 hours. ULTICARE PEN NEEDLE 32 gauge x 1/4 1 Each four times daily. polyethylene glycol 3350 17 gram/dose powder Take 17 g by mouth once daily. rizatriptan (MAXALT) 10 mg tablet Take 10 mg by mouth as needed for migraine headache (see administration instructions). simvastatin (ZOCOR) 20 mg tablet Take 20 mg by mouth daily at bedtime. ferrous sulfate 325 mg (65 mg iron) tablet Take 325 mg by mouth every other day. lithium carbonate (ESKALITH) 300 mg capsule Take 300 mg by mouth daily after breakfast. amoxicillin (AMOXIL) 875 mg tablet Take 1 tablet by mouth two times a day for 7 days. kqednokq-hlucxqdgo-uneyjiprcinqkf (CORTISPORIN) 3.5-10,000-1 mg/mL-unit/mL-% otic suspension Use 3 Drops in the left ear four times daily for 5 days. FAMILY HISTORY Problem Relation Age of Onset Hypertension Father Heart Father Hypertension Mother Heart Mother Hypertension Brother Diabetes Paternal Grandfather Glaucoma Other Social History Tobacco Use Smoking status: Never Passive exposure: Never Smokeless tobacco: Never Vaping Use Vaping status: Never Used Substance Use Topics Alcohol use: No Drug use: No ASSESSMENT/PLAN: 1. Acute otitis media, left - ICD9: 382.9, ICD10: H66.92 (primary diagnosis) - [id number] 3.5 MG-10,000 UNIT/ML-1 % EAR DROPS,SUSP 2. Acute otitis externa of left ear, unspecified type - ICD9: 380.10, ICD10: H60.502 - AMOXICILLIN 875 MG TABLET Prescription instructions reviewed (more content not 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[facility]12-[facility] History of Present illness Narrative* Louis Schmidt APRN.[facility] - 01/25/2024 12:54 PM EST CC: Patient presents with: Ear Pain: Left ear pain felt pop, feels clogged had blood and pus drainage started last night @ 830pm HPI: Marion Gutierrez is a 28 year old female who presents to the office with complaint of ear symptomssince last night. Symptoms are staying the same. Associated symptoms includes ear pain. Denies fever, nausea, vomiting , and diarrhea. Treatments tried include nothing so far. with no relief of symptoms. Sick contacts: unknown. History of asthma, frequent episodes of bronchitis, chronic bronchitis, bronchiectasis or COPD: No Smoker: No Seasonal/environmental allergies: No The ROS is otherwise negative. The patient's pmh, medications, allergies, and past visits are reviewed. PHYSICAL EXAM: BP 132/90 Pulse 69 Temp 37 C (98.6 F) Resp 20 Wt 135 kg (297 lb 9.9 oz) LMP 12/29/2023 (Exact Date) SpO2 100% BMI 46.61 kg/m General appearance: alert, cooperative, pleasant, in no acute distress Head: Normocephalic Eyes: EOM's intact, conjunctiva pink and moist, no icterus, sclera white, non-injected Ears: Right ear: External ear/canal- Normal, TM - clear with good landmarks. Left ear: External ear/canal- otitis externa, TM - erythematous, purulent effusion present Oropharynx:moist without lesions, No erythema, exudates or tonsillar hypertrophy. Heart: Negative. RRR without obvious murmur, gallop, or rubs. No ectopy. Lungs: clear to auscultation, without rales or wheeze, good air exchange PAST MEDICAL HISTORY Diagnosis Date Autism spectrum disorder Bipolar disorder (HCC) 05/2016 Borderline diabetic Fatty liver History of depression IBS (irritable bowel syndrome) diarrhea Iron deficiency anemia Kyphosis PAST SURGICAL HISTORY Procedure Laterality Date ADDITIONAL SPINAL FUSION Thoraco-lumbar fusion KNEE SURGERY HX Left patellar fracture ALLERGIES Ondansetron, Broccoli, Cauliflower, Anti Depressants [Tricyclic Antidepressants And Tricyclic Compounds], Escitalopram, Gluten Flour, Lactase, Lexapro [Escitalopram Oxalate], Seasonal Allergies, Tomato, Zofran (Pf) In Dextrose [Ondansetron (Pf) In Dextrose], Metformin, and Pollen Extracts MEDICATIONS cholecalciferol (VITAMIN D3) 1,000 unit tab tablet Take 1,000 Units by mouth once daily. lithium carbonate 600 mg capsule Take 600 mg by mouth daily at bedtime. pantoprazole DR (PROTONIX) 40 mg tablet Take 40 mg by mouth once daily. norgestimate 0.25 mg-ethinyl estradiol 35 mcg (SPRINTEC) 0.25-35 mg-mcg per tablet Take 1 tablet bymouth once daily. ARIPiprazole lauroxil ER (ARISTADA) 441 mg/1.6 mL injection Inject 441 mg intramuscularly every 4 weeks. ONETOUCH VERIO TEST STRIPS test strip 1 Each four times daily. Cyanocobalamin 1,000 mcg subl Dissolve 1,000 mcg under the tongue once daily. AJOVY SYRINGE 225 mg/1.5 mL syringe INJECT 1.5ML (1 SYRINGE) SUBCUTANEOUSLY EVERY MONTH imipramine HCl (TOFRANIL) 25 mg tablet Take 25 mg by mouth daily at bedtime. lactulose 10 gram/15 mL solution TAKE 45 ML BY MOUTH TWICE DAILY NEEDED FOR CONSTIPATION. ONETOUCH DELICA PLUS LANCET 33 gauge 1 Each four times daily. metoclopramide HCl (REGLAN) 10 mg tablet Take 5 mg by mouth four times daily. metoprolol tartrate, short acting, (LOPRESSOR) 50 mg tablet Take 1 tablet by mouth every 12 hours. ULTICARE PEN NEEDLE 32 gauge x 1/4 1 Each four times daily. polyethylene glycol 3350 17 gram/dose powder Take 17 g by mouth once daily. rizatriptan (MAXALT) 10 mg tablet Take 10 mg by mouth as needed for migraine headache (see administration instructions). simvastatin (ZOCOR) 20 mg tablet Take 20 mg by mouth daily at bedtime. ferrous sulfate 325 mg (65 mg iron) tablet Take 325 mg by mouth every other day. lithium carbonate (ESKALITH) 300 mg capsule Take 300 mg by mouth daily after breakfast. amoxicillin (AMOXIL) 875 mg tablet Take 1 tablet by mouth two times a day for 7 days. fozsuvpj-wuqielnak-cqvrbmnrxumimt (CORTISPORIN) 3.5-10,000-1 mg/mL-unit/mL-% otic suspension Use 3 Drops in the left ear four times daily for 5 days. FAMILY HISTORY Problem Relation Age of Onset Hypertension Father Heart Father Hypertension Mother Heart Mother Hypertension Brother Diabetes Paternal Grandfather Glaucoma Other Social History Tobacco Use Smoking status: Never Passive exposure: Never Smokeless tobacco: Never Vaping Use Vaping status: Never Used Substance Use Topics Alcohol use: No Drug use: No ASSESSMENT/PLAN: 1. Acute otitis media, left - ICD9: 382.9, ICD10: H66.92 (primary diagnosis) - [id number] 3.5 MG-10,000 UNIT/ML-1 % EAR DROPS,SUSP 2. Acute otitis externa of left ear, unspecified type - ICD9: 380.10, ICD10: H60.502 - AMOXICILLIN 875 MG TABLET Prescription instructions reviewed with patient as applicable. Potential red flag symptoms discussed with the patient. Reviewed appropriate action plan to take if red flag symptoms occur. Patient agreeable to treatment plan. Louis Schmidt APRN.FISH documented in this encounterUniversity [facility] Telephone encounter Note * Telephone Encounter - Natalee Rodriguez LPN - 01/25/2024 10:48 AM EST Patient given results and verbalized understanding of instructions given.. Natalee Rodriguez LPN [facility]12-06-2024 Miscellaneous Notes* Telephone Encounter - Natalee Rodriguez LPN - 01/25/2024 10:48 AM EST Patient given results and verbalized understanding of instructions given.. Natalee Rodriguez LPN * Telephone Encounter - Mallika Mo APRN.CNP - 01/25/2024 7:11 AM EST Please notify that covid/flu/rsv testing negative. Continue with plan of care as discussed during visit. documented in this encounterUniversity Hospitals [facility]12-[facility]24 Telephone encounter Note * Telephone Encounter - Mallika Mo APRN.CNP - 01/25/2024 7:11 AM EST Please notify that covid/flu/rsv testing negative. Continue with plan of care as discussed during visit. [facility] Work Phone: 1(599) 317-758012-05-2024 Instructions* Patient Instructions* Ramón Galicia PA - 01/24/2024 2:04 PM EST PHARYNGITIS PATIENT INSTRUCTIONS DESCRIPTION: Inflammation and infection of the pharynx that can be caused by a variety of germs. SIGNS AND SYMPTOMS: -Sore throat. -Swallowing difficulty. -Tickle or lump in the throat. -Fever. -Swollen glands in the neck (sometimes). -Throat may be red or covered with a grayish membrane (sometimes). -Generalized aching. CAUSES: Infection from bacteria, viruses or fungi. PREVENTIVE MEASURES: -Avoid close contact with anyone with a sore throat. -Keep immunizations, including diphtheria, up to date. TREATMENT:-Home care is usually sufficient. -Use gargles to relieve throat pain. Prepare double strength tea, hot or cold, or a salt-water solution (1 teaspoon salt in 8 oz. warm water). Use to gargle as often as you wish. -Use a cool-mist ultrasonic humidifier to increase air moisture. This will relieve the dry, tight feeling in the throat. Clean humidifier daily. -If the glands are large and tender, apply moist, warm soaks at least 4 times a day for 30 to 60 minutes. The compresses will be more effective if they are kept warm. Be careful not to burn the skin. -Replace your toothbrush. It may be harboring germs. -Until infection is gone, don't share washcloths; or food. MEDICATIONS: -For minor discomfort you may use non-prescription drugs such as acetaminophen. Don't give aspirin to a child for any viral illness. -Non-prescription throat lozenges may help ease discomfort. ACTIVITY: Limited activity is necessary until symptoms disappear. DIET: Extra fluids are necessary. Drink at least 8 glasses of fluid daily, more for high fevers. If swallowing solid food is painful, try a liquid or soft diet for a few days. documented in this encounterUniversity Hospitals St. [facility]12-05-2024 NoteHNO ID: [id number] Author: RAMÓN GALICAI PA Service: ? Author Type: Physician Drilling Engineering Manager Type: Progress Notes Filed: 01/24/2024 14:08 Note Text: This note was created using Smapporiter. Subjective Marion Gutierrez is a 28 year old female. HPI 28-year-old female presents for sore throat, cough, fever. Patient states she has had sore throat for the past 2 days. She states that she has had a deep dry cough as well. No chest pain or shortness of breath. No history of asthma. She states that she has had a fever, Tmax 101.4 ?F earlier this morning. She did take ibuprofen this morning which helped for short period of time with symptoms. She is still able to eat and drink. No vomiting or diarrhea. No sick contacts that she is aware of. No other complaint. PAST MEDICAL HISTORY Diagnosis Date Autism spectrum disorder Bipolar disorder (HCC) 05/2016 Borderline diabetic Fatty liver History of depression IBS (irritable bowel syndrome) diarrhea Iron deficiency anemia Kyphosis PAST SURGICAL HISTORY Procedure Laterality Date ADDITIONAL SPINAL FUSION Thoraco-lumbar fusion KNEE SURGERY HX Left patellar fracture ALLERGIES Ondansetron, Broccoli, Cauliflower, Anti Depressants [Tricyclic Antidepressants And Tricyclic Compounds], Escitalopram, Gluten Flour, Lactase, Lexapro [Escitalopram Oxalate], Seasonal Allergies, Tomato, Zofran (Pf) In Dextrose [Ondansetron (Pf) In Dextrose], Metformin, and Pollen Extracts MEDICATIONS cholecalciferol (VITAMIN D3) 1,000 unit tab tablet Take 1,000 Units by mouth once daily. lithium carbonate 600 mg capsule Take 600 mg by mouth daily at bedtime. pantoprazole DR (PROTONIX) 40 mg tablet Take 40 mg by mouth once daily. norgestimate 0.25 mg-ethinyl estradiol 35 mcg (SPRINTEC) 0.25-35 mg-mcg per tablet Take 1 tablet by mouth once daily. ARIPiprazole lauroxil ER (ARISTADA) 441 mg/1.6 mL injection Inject 441 mg intramuscularly every 4 weeks. Expect LabsTOUCH VERIO TEST STRIPS test strip 1 Each four times daily. Cyanocobalamin 1,000 mcg subl Dissolve 1,000 mcg under the tongue once daily. AJOVY SYRINGE 225 mg/1.5 mL syringe INJECT 1.5ML (1 SYRINGE) SUBCUTANEOUSLY EVERY MONTH imipramine HCl (TOFRANIL) 25 mg tablet Take 25 mg by mouth daily at bedtime. lactulose 10 gram/15 mL solution TAKE 45 ML BY MOUTH TWICE DAILY NEEDED FOR CONSTIPATION. ONETOUCH DELICA PLUS LANCET 33 gauge 1 Each four times daily. metoclopramide HCl (REGLAN) 10 mg tablet Take 5 mg by mouth four times daily. metoprolol tartrate, short acting, (LOPRESSOR) 50 mg tablet Take 1 tablet by mouth every 12 hours. ULTICARE PEN NEEDLE 32 gauge x 1/4 1 Each four times daily. polyethylene glycol 3350 17 gram/dose powder Take 17 g by mouth once daily. rizatriptan (MAXALT) 10 mg tablet Take 10 mg by mouth as needed for migraine headache (see administration instructions). simvastatin (ZOCOR) 20 mg tablet Take 20 mg by mouth daily at bedtime. ferrous sulfate 325 mg (65 mg iron) tablet Take 325 mg by mouth every other day. lithium carbonate (ESKALITH) 300 mg capsule Take 300 mg by mouth daily after breakfast. FAMILY HISTORY Problem Relation Age of Onset Hypertension Father Heart Father Hypertension Mother Heart Mother Hypertension Brother Diabetes Paternal Grandfather Glaucoma Other Social History Tobacco Use Smoking status: Never Passive exposure: Never Smokeless tobacco: Never Vaping Use Vaping status: Never Used Substance Use Topics Alcohol use: No Drug use: No Review of Systems Constitutional: Positive for fatigue and fever. Negative for chills. HENT: Positive for sore throat. Negative for congestion and ear pain. Respiratory: Positive for cough. Negative for shortness of breath. Cardiovascular: Negative for chest pain. Gastrointestinal: Negative for diarrhea and vomiting. Objective BP 128/82 Pulse 73 Temp 36.6 ?C (97.9 ?F) Resp 20 Wt 135 kg (297 lb 9.9 oz) LMP 12/29/2023 (Exact Date) SpO2 98% BMI 46.61 kg/m? Physical Exam Vitals and nursing note reviewed. Constitutional: General: She is not in acute distress. Appearance: Normal appearance. She is not toxic-appearing. HENT: Right Ear: Tympanic membrane and ear canal normal. Left Ear: Tympanic membrane and ear canal normal. Nose: Nose normal. Mouth/Throat: Mouth: Mucous membranes are moist. Pharynx: Uvula midline. Posterior oropharyngeal erythema present. Tonsils: No tonsillar exudate or tonsillar abscesses. 1+ on the right. 1+ on the left. Eyes: Conjunctiva/sclera: Conjunctivae normal. Cardiovascular: Rate and Rhythm: Normal rate and regular rhythm. Pulmonary: Effort: Pulmonary effort is normal. Breath sounds: Normal breath sounds. No wheezing, rhonchi or rales. Skin: General: Skin is warm and dry. Neurological: Mental Status: She is alert. Assessment and Plan ASSESSMENT/PLAN: 1. Sore throat - ICD9: 462, ICD10: J02.9 (primary diagnosis) - suspe (more content not 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[facility] History of Present illness Narrative* Ramón Galicia PA - 01/24/2024 2:03 PM EST This note was created using NoteWriter. Subjective Marion Gutierrez is a 28 year old female. HPI 28-year-old female presents for sore throat, cough, fever. Patient states she has had sore throat for the past 2 days. She states that she has had a deep dry cough as well. No chest pain or shortness of breath. No history of asthma. She states that she has had a fever, Tmax 101.4 F earlier thismorning. She did take ibuprofen this morning which helped for short period of time with symptoms. She is still able to eat and drink. No vomiting or diarrhea. No sick contacts that she is aware of. No other complaint. PAST MEDICAL HISTORY Diagnosis Date Autism spectrum disorder Bipolar disorder (HCC) 05/2016 Borderline diabetic Fatty liver History of depression IBS (irritable bowel syndrome) diarrhea Iron deficiency anemia Kyphosis PAST SURGICAL HISTORY Procedure Laterality Date ADDITIONAL SPINAL FUSION Thoraco-lumbar fusion KNEE SURGERY HX Left patellar fracture ALLERGIES Ondansetron, Broccoli, Cauliflower, Anti Depressants [Tricyclic Antidepressants And Tricyclic Compounds], Escitalopram, Gluten Flour, Lactase, Lexapro [Escitalopram Oxalate], Seasonal Allergies, Tomato, Zofran (Pf) In Dextrose [Ondansetron (Pf) In Dextrose], Metformin, and Pollen Extracts MEDICATIONS cholecalciferol (VITAMIN D3) 1,000 unit tab tablet Take 1,000 Units by mouth once daily. lithium carbonate 600 mg capsule Take 600 mg by mouth daily at bedtime. pantoprazole DR (PROTONIX) 40 mg tablet Take 40 mg by mouth once daily. norgestimate 0.25 mg-ethinyl estradiol 35 mcg (SPRINTEC) 0.25-35 mg-mcg per tablet Take 1 tablet bymouth once daily. ARIPiprazole lauroxil ER (ARISTADA) 441 mg/1.6 mL injection Inject 441 mg intramuscularly every 4 weeks. ONETOUCH VERIO TEST STRIPS test strip 1 Each four times daily. Cyanocobalamin 1,000 mcg subl Dissolve 1,000 mcg under the tongue once daily. AJOVY SYRINGE 225 mg/1.5 mL syringe INJECT 1.5ML (1 SYRINGE) SUBCUTANEOUSLY EVERY MONTH imipramine HCl (TOFRANIL) 25 mg tablet Take 25 mg by mouth daily at bedtime. lactulose 10 gram/15 mL solution TAKE 45 ML BY MOUTH TWICE DAILY NEEDED FOR CONSTIPATION. ONETOUCH DELICA PLUS LANCET 33 gauge 1 Each four times daily. metoclopramide HCl (REGLAN) 10 mg tablet Take 5 mg by mouth four times daily. metoprolol tartrate, short acting, (LOPRESSOR) 50 mg tablet Take 1 tablet by mouth every 12 hours. ULTICARE PEN NEEDLE 32 gauge x 1/4 1 Each four times daily. polyethylene glycol 3350 17 gram/dose powder Take 17 g by mouth once daily. rizatriptan (MAXALT) 10 mg tablet Take 10 mg by mouth as needed for migraine headache (see administration instructions). simvastatin (ZOCOR) 20 mg tablet Take 20 mg by mouth daily at bedtime. ferrous sulfate 325 mg (65 mg iron) tablet Take 325 mg by mouth every other day. lithium carbonate (ESKALITH) 300 mg capsule Take 300 mg by mouth daily after breakfast. FAMILY HISTORY Problem Relation Age of Onset Hypertension Father Heart Father Hypertension Mother Heart Mother Hypertension Brother Diabetes Paternal Grandfather Glaucoma Other Social History Tobacco Use Smoking status: Never Passive exposure: Never Smokeless tobacco: Never Vaping Use Vaping status: Never Used Substance Use Topics Alcohol use: No Drug use: No Review of Systems Constitutional: Positive for fatigue and fever. Negative for chills. HENT: Positive for sore throat. Negative for congestion and ear pain. Respiratory: Positive for cough. Negative for shortness of breath. Cardiovascular: Negative for chest pain. Gastrointestinal: Negative for diarrhea and vomiting. Objective BP 128/82 Pulse 73 Temp 36.6 C (97.9 F) Resp 20 Wt 135 kg (297 lb 9.9 oz) LMP 12/29/2023 (Exact Date) SpO2 98% BMI 46.61 kg/m Physical Exam Vitals and nursing note reviewed. Constitutional: General: She is not in acute distress. Appearance: Normal appearance. She is not toxic-appearing. HENT: Right Ear: Tympanic membrane and ear canal normal. Left Ear: Tympanic membrane and ear canal normal. Nose: Nose normal. Mouth/Throat: Mouth: Mucous membranes are moist. Pharynx: Uvula midline. Posterior oropharyngeal erythema present. Tonsils: No tonsillar exudate or tonsillar abscesses. 1+ on the right. 1+ on the left. Eyes: Conjunctiva/sclera: Conjunctivae normal. Cardiovascular: Rate and Rhythm: Normal rate and regular rhythm. Pulmonary: Effort: Pulmonary effort is normal. Breath sounds: Normal breath sounds. No wheezing, rhonchi or rales. Skin: General: Skin is warm and dry. Neurological: Mental Status: She is alert. Assessment and Plan ASSESSMENT/PLAN: 1. Sore throat - ICD9: 462, ICD10: J02.9 (primary diagnosis) - suspect viral - Group A strep molecular testing negative - Discussed supportive care treatment with fluids, rest and analgesia. - The patient may also use warm salt water gargles, throat lozenges and/or OTC throat spray as needed. - STREP A MOLECULAR (POC) - COVID & INFLUENZA A/B & RSV PCR, ROUTINE 2. URI, acute - ICD9: 465.9, ICD10: J06.9 - Discussed viral etiology and rationale for treatment. - Symptomatic treatment with prn analgesia - Supportive care with fluids and rest - The patient may also use OTC cough and cold meds as needed. - COVID & INFLUENZA A/B & RSV PCR, ROUTINE Diagnosis and treatment plan were discussed and questions were answered to the patient's satisfaction. Pt acknowledged understanding of concepts and follow up plan. Specific signs and symptoms that would indicate the need for higher level of care were discussed in detail warranting prompt ER evaluation. EDELMIAR Gillespie documented in this encounterUniversity [facility] St. [facility]11-25-2024 Evaluation note* Diagnosis Onset Date Resolution Status Admit Date Palpitations acute December 2:29pm Syncope acute January 14, 2024 2:29pm Hypertension chronic December 2:29pm [facility] Work Phone: 1(459) 455-560311-19-2024 Instructions* Patient Instructions* Jey Johnson MD - 01/08/2024 12:06 PM EST Please taking control pills prescribed Schedule for a dietitian visit for conservative weight loss documented in this encounterUniversity Hospitals St. [facility]11-19-2024 NoteHNO ID: [id number] Author: JEY JOHNSON MD Service: ? Author Type: Physician Type: Progress Notes Filed: 01/09/2024 18:32 Note Text: Endocrinology and Metabolism [place] Follow up note Chief complaint: Evaluation of ovarian hyperandrogenism HPI Marion Gutierrez is a 28 year old female presenting for follow up evaluation of ovarian hyperandrogenism. She is accompanied by her father today LV 10/26/23 Also GI referral says, concerns for AI She has gastroparesis for the last 6 months or more She has dizziness and lightheadedness to the point that she passes out. She has bloating and low appetite, sleeping 16 hours a day in the last 2.5 months She has vomiting , diarrhea and both sometimes She has coloscopy yesterday and had polyps removed Hirsutism started: puberty Patient uses mechanical hair removal (i.e. tweezers/waxing/shaving): cream weekly History of deepening of voice: No History of change in genitalia: No LMP: not specific, may be 8 months Menstrual flow: 3 days, mostly spotting for a day or so Menarche: 17 to 18 years old- mother thinks she was in 6th grade, patient reports she was in high school Number of Pregnancies: no Planning a : no Currently taking oral contraception: no. She used OCPs in the past 3 years ago Now she is on provera for 10 days each month She used metformin but had intolerance Interval history: 01/08/24: She has no new symptoms. She is following up after lab work for irregular cycles after being off of aldactone and provera PAST MEDICAL HISTORY: PAST MEDICAL HISTORY Diagnosis Date Autism spectrum disorder Bipolar disorder (HCC) 05/2016 Borderline diabetic Fatty liver History of depression IBS (irritable bowel syndrome) diarrhea Iron deficiency anemia Kyphosis PAST SURGICAL HISTORY: PAST SURGICAL HISTORY Procedure Laterality Date ADDITIONAL SPINAL FUSION Thoraco-lumbar fusion KNEE SURGERY HX Left patellar fracture FAMILY HISTORY: FAMILY HISTORY Problem Relation Age of Onset Hypertension Father Heart Father Hypertension Mother Heart Mother Hypertension Brother Diabetes Paternal Grandfather Glaucoma Other SOCIAL HISTORY: Social History Tobacco Use Smoking status: Never Passive exposure: Never Smokeless tobacco: Never Vaping Use Vaping status: Never Used Substance Use Topics Alcohol use: No Drug use: No MEDICATIONS: Current Outpatient Medications on File Prior to Visit Medication Sig ARIPiprazole lauroxil ER (ARISTADA) 441 mg/1.6 mL injection Inject intramuscularly. Very 28 days ONETOUCH VERIO TEST STRIPS test strip Cyanocobalamin 1,000 mcg subl Take 1,000 mcg by mouth. AJOVY SYRINGE 225 mg/1.5 mL syringe INJECT 1.5ML (1 SYRINGE) SUBCUTANEOUSLY EVERY MONTH hyoscyamine (LEVSIN) 0.125 mg tablet imipramine HCl (TOFRANIL) 25 mg tablet Take by mouth. lactulose 10 gram/15 mL solution TAKE 45 ML BY MOUTH TWICE DAILY NEEDED FOR CONSTIPATION. ONETOUCH DELICA PLUS LANCET 33 gauge medroxyPROGESTERone (PROVERA) 10 mg tablet metoclopramide HCl (REGLAN) 10 mg tablet Take 5 mg by mouth. metoprolol tartrate, short acting, (LOPRESSOR) 50 mg tablet Take 1 tablet by mouth every 12 hours. ULTICARE PEN NEEDLE 32 gauge x 1/4 polyethylene glycol 3350 17 gram/dose powder MIX 4 GRAMS WITH LIQUID AND DRINK ONCE DAILY rizatriptan (MAXALT) 10 mg tablet Take by mouth as needed. simvastatin (ZOCOR) 20 mg tablet Take 20 mg by mouth daily at bedtime. sucralfate (CARAFATE) 1 gram tablet Take 1 g by mouth four times daily. hydrOXYzine pamoate (VISTARIL) 25 mg capsule ferrous sulfate 325 mg (65 mg iron) tablet Take 325 mg by mouth every other day. spironolactone (ALDACTONE) 50 mg tablet Take 50 mg by mouth two times a day. pantoprazole DR (PROTONIX) 20 mg tablet Take 40 mg by mouth once daily. lithium carbonate (ESKALITH) 300 mg capsule Take 300 mg by mouth daily after breakfast. cholecalciferol, Vitamin D3, (VITAMIN D3) 1,250 mcg (50,000 unit) cap capsule Take 1 capsule by mouth one time a week. (Patient not taking: Reported on 10/26/2023) No current facility-administered medications on file prior to visit. ALLERGIES: ALLERGIES Allergen Reactions Ondansetron Anaphylaxis, Other: See Comments Tongue swelling Broccoli Diarrhea Cauliflower Diarrhea Anti Depressants [T* Other: See Comments Patient states she must take anti-depressants with a mood stabilizer or else she becomes suicidal. Escitalopram Other: See Comments Suicidal ideation suicidal Suicidal thoughts Gluten Flour Diarrhea Lactase Diarrhea, GI Upset Eats dairy products, just limit amount Lexapro [Escitalopr* Mental Status Change Seasonal Allergies Cough Tomato GI Upset Zofran (Pf) In Dext* Swelling, GI Upset Metformin Diarrhea, GI Upset Pollen Extracts Hives, Intolerance ROS Pertinent as per HPI PHYSICAL EXAM BP 122/76 (BP Site: Right Arm, BP Position: Sitting, BP Cuff Siz (more content not 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[facility] History of Present illness Narrative* Jey Johnson MD - 01/08/2024 12:00 PM EST Endocrinology and Metabolism [place] Follow up note Chief complaint: Evaluation of ovarian hyperandrogenism HPI Marion Gutierrez is a 28 year old female presenting for follow up evaluation of ovarian hyperandrogenism. She is accompanied by her father today LV 10/26/23 Also GI referral says, concerns for AI She has gastroparesis for the last 6 months or more She has dizziness and lightheadedness to the point that she passes out. She has bloating and low appetite, sleeping 16 hours a day in the last 2.5 months She has vomiting , diarrhea and both sometimes She has coloscopy yesterday and had polyps removed Hirsutism started: puberty Patient uses mechanical hair removal (i.e. tweezers/waxing/shaving): cream weekly History of deepening of voice: No History of change in genitalia: No LMP: not specific, may be 8 months Menstrual flow: 3 days, mostly spotting for a day or so Menarche: 17 to 18 years old- mother thinks she was in 6th grade, patient reports she was in high school Number of Pregnancies: no Planning a : no Currently taking oral contraception: no. She used OCPs in the past 3 years ago Now she is on provera for 10 days each month She used metformin but had intolerance Interval history: 01/08/24: She has no new symptoms. She is following up after lab work for irregular cycles after being off ofaldactone and provera PAST MEDICAL HISTORY: PAST MEDICAL HISTORY Diagnosis Date Autism spectrum disorder Bipolar disorder (HCC) 05/2016 Borderline diabetic Fatty liver History of depression IBS (irritable bowel syndrome) diarrhea Iron deficiency anemia Kyphosis PAST SURGICAL HISTORY: PAST SURGICAL HISTORY Procedure Laterality Date ADDITIONAL SPINAL FUSION Thoraco-lumbar fusion KNEE SURGERY HX Left patellar fracture FAMILY HISTORY: FAMILY HISTORY Problem Relation Age of Onset Hypertension Father Heart Father Hypertension Mother Heart Mother Hypertension Brother Diabetes Paternal Grandfather Glaucoma Other SOCIAL HISTORY: Social History Tobacco Use Smoking status: Never Passive exposure: Never Smokeless tobacco: Never Vaping Use Vaping status: Never Used Substance Use Topics Alcohol use: No Drug use: No MEDICATIONS: Current Outpatient Medications on File Prior to Visit Medication Sig ARIPiprazole lauroxil ER (ARISTADA) 441 mg/1.6 mL injection Inject intramuscularly. Very 28 days ONETOUCH VERIO TEST STRIPS test strip Cyanocobalamin 1,000 mcg subl Take 1,000 mcg by mouth. AJOVY SYRINGE 225 mg/1.5 mL syringe INJECT 1.5ML (1 SYRINGE) SUBCUTANEOUSLY EVERY MONTH hyoscyamine (LEVSIN) 0.125 mg tablet imipramine HCl (TOFRANIL) 25 mg tablet Take by mouth. lactulose 10 gram/15 mL solution TAKE 45 ML BY MOUTH TWICE DAILY NEEDED FOR CONSTIPATION. ONETOUCH DELICA PLUS LANCET 33 gauge medroxyPROGESTERone (PROVERA) 10 mg tablet metoclopramide HCl (REGLAN) 10 mg tablet Take 5 mg by mouth. metoprolol tartrate, short acting, (LOPRESSOR) 50 mg tablet Take 1 tablet by mouth every 12 hours. ULTICARE PEN NEEDLE 32 gauge x 1/4 polyethylene glycol 3350 17 gram/dose powder MIX 4 GRAMS WITH LIQUID AND DRINK ONCE DAILY rizatriptan (MAXALT) 10 mg tablet Take by mouth as needed. simvastatin (ZOCOR) 20 mg tablet Take 20 mg by mouth daily at bedtime. sucralfate (CARAFATE) 1 gram tablet Take 1 g by mouth four times daily. hydrOXYzine pamoate (VISTARIL) 25 mg capsule ferrous sulfate 325 mg (65 mg iron) tablet Take 325 mg by mouth every other day. spironolactone (ALDACTONE) 50 mg tablet Take 50 mg by mouth two times a day. pantoprazole DR (PROTONIX) 20 mg tablet Take 40 mg by mouth once daily. lithium carbonate (ESKALITH) 300 mg capsule Take 300 mg by mouth daily after breakfast. cholecalciferol, Vitamin D3, (VITAMIN D3) 1,250 mcg (50,000 unit) cap capsule Take 1 capsule by mouth one time a week. (Patient not taking: Reported on 10/26/2023) No current facility-administered medications on file prior to visit. ALLERGIES: ALLERGIES Allergen Reactions Ondansetron Anaphylaxis, Other: See Comments Tongue swelling Broccoli Diarrhea Cauliflower Diarrhea Anti Depressants [T* Other: See Comments Patient states she must take anti-depressants with a mood stabilizer or else she becomes suicidal. Escitalopram Other: See Comments Suicidal ideation suicidal Suicidal thoughts Gluten Flour Diarrhea Lactase Diarrhea, GI Upset Eats dairy products, just limit amount Lexapro [Escitalopr* Mental Status Change Seasonal Allergies Cough Tomato GI Upset Zofran (Pf) In Dext* Swelling, GI Upset Metformin Diarrhea, GI Upset Pollen Extracts Hives, Intolerance ROS Pertinent as per HPI PHYSICAL EXAM BP 122/76 (BP Site: Right Arm, BP Position: Sitting, BP Cuff Size: Large Adult) Pulse 72 Resp 21 Ht 170.2 cm (5' 7) Wt 133.4 kg (294 lb) LMP 12/29/2023 (Exact Date) SpO2 100% BMI 46.05kg/m General Appearance: Well appearing, alert, in no acute distress, well- hydrated,obese body habitus Skin: pale thin stretch espinoza on upper abdomen noted Eyes: Extraocular movements are intact. Neck: Supple, no adenopathy; thyroid symmetric, normal size, no bruits. Lungs: unlabored breathing on room air Heart: RRR Abdomen: obese abdomen Extremities: No deformities, edema, skin discoloration, clubbing or cyanosis. Musculoskeletal: No joint swelling, deformity, or tenderness. Peripheral Pulses: Normal. Neurologic: Gait normal. Reflexes normal and symmetric. PREVIOUS DATA Diagnostic tests reviewed for today's visit: Cortisol and ACTH normal on 07/17/2023 Cortisol, 24 HR UR Free on 07-23-2023 CORTISOL,F/24hr 46 ug/24 hr High 6-42 [facility] CORTISOL,U FREE 16 ug/L Normal Undefined [facility] Metanephrine Frac 24 HR UR on 07-23-2023 Metaneph,UR 24H 68 ug/24 hr Normal 36-209 [facility] Metanephrines,U 24 ug/L Normal Undefined [facility] Normetan,UR 24h 522 ug/24 hr High 95-449 [facility] Normetanephrine 183 ug/L Normal Undefined [facility] Catecholamines, 24 UR on 07-20-2023 Dopamine, Urine 580 ug/L Normal Undefined [facility] Dopamine,U,24HR 957 ug/24 hr High 0-510 [facility] Epineph.,U,24HR 5 ug/24 hr Normal 0-20 [facility] Epinephrine, U 3 ug/L Normal Undefined [facility] Norepin.,U,24HR 134 ug/24 hr Normal 0-135 [facility] Comment on above: Order Comment: Test(s) 495833-[id number], Urine; - Norepinephrine, Ur; [id number]-Cbnuyrrx, Urinewas developed and its performance characteristicsdetermined by [employer]. It has notbeen cleared or approvedby the Food and Drug Administration. Performed By: #### L3600.0150 ####[facility] [id number] [place], [place],[address] Norepinephrin,U 81 ug/L Normal Undefined [facility] Adrenocorticotropic Hormone on 07-17-2023 ACTH 9.7 pg/mL Normal 7.2-63.3 [facility] CORTISOL SERUM on 07-17-2023 CORTISOL 20.10 ug/dL Normal 3.44-22.45 [facility] Catecholamines, Plasma on 07-17-2023 DOPAMINE <30 Normal 0-48 [facility] EPINEPHRINE <15 Normal 0-62 [facility] NOREPINEPHRINE 429 pg/mL Normal 0-874 [facility] Gastrin, Serum on 07-17-2023 GASTRIN 265 pg/mL High 0-115 [facility] Insulin Level on 07-17-2023 INSULIN,FASTING 93.7 uIU/mL High 2.6-24.9 [facility] Insulin Like Growth Factor on 07-17-2023 SOMATOMEDIN C 122 ng/mL Normal 91-308 [facility] Chromogranin A 206.0 ng/mL Abnormal 0.0-101.8 [facility] Renin/Aldosterone Activity on 07-17-2023 ALD/RENIN RATIO 11.6 Normal 0.0-30.0 [facility] Performed By: #### L3400.1350, L3300.3500, L3300.1800, L3430.0100, L3300.1000, L3300.1050, L3100.4810 ####[facility] [address] [place], [place], [id number] ALDOSTERONE,S 45.0 ng/dL High 0.0-30.0 [facility] RENIN, PLASMA 3.873 ng/mL/hr Normal 0.167-5.380 [facility] BUN/CRE 18.1 RATIO Normal 10-20 [facility] CA,Total 9.0 mg/dL Normal 8.5-10.1 [facility] Chloride [Moles/Vol] 110 mmol/L High 98-107 [facility] CO2 [Moles/Vol] 25.0 mmol/L Normal 21.0-32.0 [facility] Creatinine [Mass/Vol] 0.66 mg/dL Normal 0.55-1.02 [facility] Performed By: #### L100.0100, L500.4050, L506.1000, L501.07977, L501.9520, L506.0400, L501.9060 ####[facility] [address] [place], [address] EST GFR - AA 138 mL/min Normal >60 [facility] Performed By: #### L100.0100, L500.4050, L506.1000, L501.63274, L501.9520, L506.0400, L501.9060 ####[facility] [address] [place], [address] GAP 3 Low 5-15 [facility] GFR/1.73 sq M.predicted among non-blacks MDRD (S/P/Bld) [Vol rate/Area] 114 mL/min/(1.73_m2) Normal>60 [facility] Globulin (S) [Mass/Vol] 3.8 g/dL Normal 2.2-4.2 [facility] Glucose [Mass/Vol] 124 mg/dL High 74-106 [facility] Performed By: #### L100.0100, L500.4050, L506.1000, L501.80540, L501.9520, L506.0400, L501.9060 ####[facility] [address] [place], [address] Potassium [Moles/Vol] 4.0 mmol/L Normal 3.5-5.1 [facility] Sodium [Moles/Vol] 138 mmol/L Normal 136-145 [facility] T PROT 7.0 g/dL Normal 6.4-8.2 [facility] Urea nitrogen [Mass/Vol] 12 mg/dL Normal 7-18 [facility] Free T3 on 07-05-2023 Free T3 [Mass/Vol] 2.4 pg/mL Normal 2.18-3.98 [facility] Comment on above: Performed By: #### L100.0100, L500.4050, L506.1000, L501.84012, L501.9520, L506.0400, L501.9060 ####[facility] [address] [place], [address] [place] on 07-05-2023 LI 0.80 mmol/L Normal 0.60-1.20 [facility] T4 Free Direct on 07-05-2023 T4 FREE DIRECT 1.04 ng/dL Normal 0.76-1.46 [facility] Comment on above: Performed By: #### L100.0100, L500.4050, L506.1000, L501.07946, L501.9520, L506.0400, L501.9060 ####[facility] [address] [place], [address] Thyroid Stim Hormone (TSH) on 07-05-2023 TSH 2.10 uIU/mL Normal 0.358-3.74 [facility] Vitamin D,25 Hydroxy on 07-05-2023 Vitamin D 25-OH 30.3 ng/mL Normal [facility] Latest Ref Rng 12/05/2023 Sex Hormone Bind GLB 25 - 122 nmol/L 56 Testosterone Total 9 - 55 ng/dL 63 (H) Testosterone Free 0.8 - 7.4 pg/mL 8.0 (H) Testo Bioavailable 2.2 - 20.6 ng/dL 19.4 Hemoglobin A1C 4.3 - 5.6 % 5.7 (H) Estimated Average Glucose mg/dL 117 Hydroxyprogesterone <=206.00 ng/dL 48.26 DHEA-S 98.8 - 340.0 ug/dL 72.8 (L) Cortisol 4.8 - 19.5 ug/dL 13.6 ACTH 7.2 - 63.3 pg/mL 11.8 TSH 0.270 - 4.200 mIU/L 2.940 Free T4 0.9 - 1.7 ng/dL 1.3 Prolactin 4.4 - 33.8 ng/mL 15.2 Estradiol 17B pg/mL 66 FSH See comment mIU/mL 4.2 LH See comment mIU/mL 6.7 Insulin 3.0 - 25.0 mU/L 97.9 (H) Glucose, fasting ordered but not drawn Legend: (H) High (L) Low ASSESSMENT AND PLAN PCOS: She has a hx of autism in addition to PCOS Labs for irregular cycles completed along with insulin levels and Hba1c and discussed we can definethe diagnosis as PCOS, and that she has prediabetes Labs from chart review, 24 hr urine free cortisol checked at [facility], along with 24 hr urine metanephrines and catecholamines, within normal range/acceptable. Plasma metanephrines and catecholamines within normal range. Aldosterone and renin levels were checked and were within normal again, however patient has been onspironolactone and she could not confirm for how long she has been on it. Per chart review probablyon it since 08/08/2021. TSH, free T3, free T4 within normal, as was 25-hydroxy vitamin D Although no other symptoms, ACTH and cortisol checked for dizziness/lightheadedness are normal Discussed treatment of PCOS, (and hirsutism) being OCPs and mechanism of action. Reviewed we can start aldactone if continues to have hirsutism but increases the risk of dizziness. Also discussed other option being metformin for normalization of cycles and thus improving prediabetes and weight. Extensively discussed lifestyle modifications for weight loss and thus improvement in PCOS as a nonpharmacological method She would like to start OCP for PCOS and sprintec started Referral to dietitian given for conservative weight loss - she agrees this could be helpful Follow-up in 3 months. Medical Decision Making: Problems: Moderate: 1+ chronic illnesses with change Data: Unique test result(s) reviewed: 3+ Risk: Moderate: Drug management Medical Decision Making Level: 4 - Moderate Jey Johnson MD Endocrinology Associate Staff [facility] Endocrinology and Metabolism [place] [phone] documented in [address] encounterUniversity Hospitals St. [facility]-20[facility] History of Present illness Narrative* Stefania Lake, SIRENA - 12/31/2023 2:00 PM EST Images from the original note were not included. CHIEF COMPLAINT: migraines HISTORY OF PRESENT ILLNESS: 28 year old female presented to office to follow up on migraines. Ajovy effective in decreasing frequency, intensity and duration of migraines. Took maxalt 2-3x/in the past 6 months for onset of mildha- effective. Weather can be a factor. Tolerates medication well. Continues to follow up with psychiatrist and counseling, feels overall stress is well controlled. Trying to increase activity and exercise. Denies further questions or concerns. Current Outpatient Medications on File Prior to Visit Medication Sig Dispense Refill amitriptyline (Elavil) 25 MG tablet Take 25 mg by mouth at bedtime. Aristada 441 MG/1.6ML injection Inject 441 mg into the shoulder, thigh, or buttocks 1 (one) time. Cyanocobalamin (Vitamin B-12) 1000 MCG sublingual tablet Take 1,000 mcg by mouth in the morning. famotidine (Pepcid) 40 MG tablet Take 40 mg by mouth. ferrous sulfate 325 (65 Fe) MG tablet Take 325 mg by mouth in the morning. Take with meals. fremanezumab (Ajovy) 225 MG/1.5ML prefilled syringe INJECT 1.5ML (1 SYRINGE) SUBCUTANEOUSLY EVERY MONTH 1.5 mL 0 lithium 300 MG capsule Take 300 mg by mouth in the morning and 300 mg in the evening. Take with meals. (Patient taking differently: Take 300 mg by mouth Daily in the Morning) lithium 600 MG capsule Take 600 mg by mouth in the evening rizatriptan (Maxalt) 10 MG tablet Take 1 tablet (10 mg) by mouth Daily as needed for migraine (Take1 tablet daily as needed for onset of migraine, may repeat 2nd dose in 2 hrs if needed. Max 2 dosesin 24 hours) 12 tablet 5 [DISCONTINUED] budesonide EC (Entocort EC) 3 MG 24 hr capsule (Patient not taking: Reported on 12/31/2023) [DISCONTINUED] hydrOXYzine pamoate (Vistaril) 25 MG capsule Take 25 mg by mouth in the morning. (Patient not taking: Reported on 12/31/2023) [DISCONTINUED] losartan (Cozaar) 50 MG tablet Take 50 mg by mouth in the morning. (Patient not taking: Reported on 12/31/2023) [DISCONTINUED] spironolactone (Aldactone) 50 MG tablet Take 25 mg by mouth in the morning and 25 mgbefore bedtime. (Patient not taking: Reported on 12/31/2023) No current facility-administered medications on file prior to visit. Past Medical History: Diagnosis Date Acid reflux Autistic spectrum disorder (CMS/HCC) Bipolar 1 disorder (CMS/HCC) Constipation Enlarged liver Migraines (CMS/HCC) ER 08/29/21 for MIGRAINE [facility] Polycystic ovarian disease Suicide attempt (CMS/HCC) THREE TIMES Past Surgical History: Procedure Laterality Date ADENOIDECTOMY KNEE SURGERY Left OTHER SURGICAL HISTORY SCOPES-LIVER AND BOWELS SPINAL FUSION WHOLE BACK TONSILLECTOMY Family History Problem Relation Name Age of Onset Cancer Mother Uterine Diabetes Mother Aortic stenosis Mother subaortic; 2 heart valves replaced Heart disease Father No Known Problems Sister No Known Problems Brother 2 Social History Tobacco Use Smoking status: Never Smokeless tobacco: Never Substance Use Topics Alcohol use: Yes Comment: Alcohol: 1-2 drinks/monthly or less. caffeine: 3-4 cups/day ALLERGIES: Lexapro [escitalopram] and Zofran [ondansetron] REVIEW OF SYSTEMS: General: Appetite change: denies. Chills: denies. Fever: denies. Allergy/Immunology: Unusual rection to medications, food, animals or insects reaction: denies. Ophthalmologic: Visual acuity change: denies. ENT: Decreased hearing: denies. Endocrine: Weight loss: denies. Respiratory: Cough: denies. Wheezing: denies. Cardiovascular: Chest pain: denies. Palpitations: denies. Gastrointestinal: Abdominal pain: denies. Difficulty swallowing: denies Hematology: Bleeding problems: denies. Genitourinary: Painful urination: denies. Musculoskeletal: Joint pain: denies. Joint edema: denies. Skin: Rash: denies. Neurologic: Ataxia: denies, Tremor: denies. Psychiatric Anxiety: denies. Depression: denies. Insomnia: denies. Suicidal thoughts: denies. Also see HPI for elements of ROS documented therein and for details of positive findings, which shall supersede the foregoing. OBJECTIVE: Objective Vitals: 12/31/23 1355 BP: 124/86 Pulse: 75 SpO2: 99% Weight: 197 lb Height: 5' 7 Body mass index is 30.85 kg/m . Examination: General Exam: pleasant, well nourished, well developed, in no acute distress Head: normocephalic, atraumatic Eyes: extraocular movement intact (EOMI), pupils equal, round, reactive to light, upper eyelids normal , lower eyelids normal Ears: no obvious hearing deficit Nose: Nares patent Neck/Throat: neck supple, full range of motion Oral Cavity: mucosa moist Skin: warm and dry Heart: no murmurs, regular rate and rhythm, S1, S2 normal Lungs: clear to auscultation bilaterally, good air movement, no wheezes, rales, rhonci, speaks in full sentences Chest: normal shape and expansion Abdomen: bowel sounds present, soft, nontender, nondistended, no guarding or rigidity Extremities: no edema, no cyanosis Musculoskeletal: no swelling or deformity Neurologic: nonfocal, alert and oriented, cognitive exam grossly normal, cranial nerves 2-12 grossly intact, motor strength 5/5 bilateral symmetrically, no drift, coordination intact, sensory exam intact, gait normal Psych: pleasant, cooperative, good eye contact, speech clear, judgement and insight good ASSESSMENT/PLAN: 1. Chronic migraine without aura, intractable, without status migrainosus (CMS/HCC) Improved, continue ajovy 225 mg subcutaneous every month, maxalt prn 11/07/22 MRI of brain: normal Increase activity/exercise, adequate sleep, decrease stress, adequate glucose control 10/27/21 hst: normal - fremanezumab (Ajovy) 225 MG/1.5ML prefilled syringe; Inject 1.5 mL (225 mg) under the skin every 30 (thirty) days Dispense: 1.5 mL; Refill: 5 - rizatriptan (Maxalt) 10 MG tablet; Take 1 tablet (10 mg) by mouth Daily as needed for migraine (Take 1 tablet daily as needed for onset of migraine, may repeat 2nd dose in 2 hrs if needed. Max 2 doses in 24 hours) Dispense: 12 tablet; Refill: 5 2. Morbid obesity with BMI of 45.0-49.9, adult (CMS/HCC) (Primary) Diet, exercise, weight loss Pt has been fully educated on their diagnosis, treatment options, follow up plan, and return instructions. documented in this encounterKindred [id number] Telephone encounter Note* Telephone Encounter - Amy Bragg RN - 12/19/2023 12:19 PM EDT Signed record release received from [facility] requesting previous OV notes from Dr. Johnson. Pt had 1 OV in 10/2023. This was faxed electronically through [employer]. Amy Bragg RN December 19, 2023 12:[address] [facility]10-30-2024 Miscellaneous Notes* Telephone Encounter - Amy rBagg RN - 12/19/2023 12:19 PM EDT Signed record release received from [facility] requesting previous OV notes from Dr. Johnson. Pt had 1 OV in 10/2023. This was faxed electronically through [employer]. Amy Bragg RN December 19, 2023 12:20 PM documented in this encounterUniversity Hospitals St. [facility]10-28-2024 Telephone encounter Note * Telephone Encounter - Rhonda Duong - 12/17/2023 9:02 AM EDT Pt's mom called and schedule in office appt for 12/20/23 Kind[facility] [id number] Miscellaneous Notes* Telephone Encounter - Rhonda Duong - 12/17/2023 9:02 AM EDT Pt's mom called and schedule in office appt for 12/20/23 * Telephone Encounter - Rhonda Duong - 12/12/2023 10:48 AM EDT LM today- on patient's cell ph#-12/12/23-for pt to call back and schedule an in office appt * Telephone Encounter - Neli Russell MA - 12/06/2023 10:51 AM EDT Chart reviewed. Pt due for appt. Please call to schedule prior to next injection. Last dispensed 11/19/23. documented in this encounterKindred [id number] Telephone encounter Note* Telephone Encounter - Rhonda Duong - 12/12/2023 10:48 AM EDT SHANTAL today- on patient's cell ph#-12/12/23-for pt to call back and schedule an in office appt Kindred [id number] Telephone encounter Note* Telephone Encounter - Neli Russell MA - 12/06/2023 10:51 AM EDT Chart reviewed. Pt due for appt. Please call to schedule prior to next injection. Last dispensed 11/19/23. Kindred [id number] History of Present illness Narrative* Louis Schmidt APRN.INTERNAL COMBUSTION ENGINEER - 11/27/2023 7:51 PM EDT Patient came with complaints of burning in both arms. Patient says is getting increasingly worse. Patient says she was seen in the ER and they did ultrasound the left. Patient says the right seems jaqueline hurting much worse. Patient does have uncontrolled diabetes. Patient is also on clindamycin. Patient said they put her on clindamycin at the ER. At this time patient is being sent back to the ER as we do not have any testing available. documented in this encounterUniversity Hospitals St. [facility]10-08-2024 NoteHNO ID: [id number] Author: LOUIS SCHMIDT APRN.FISH Service: ? Author Type: Nurse Practitioner Type: Progress Notes Filed: 11/27/2023 19:55 Note Text: Patient came with complaints of burning in both arms. Patient says is getting increasingly worse. Patient says she was seen in the ER and they did ultrasound the left. Patient says the right seems to be hurting much worse. Patient does have uncontrolled diabetes. Patient is also on clindamycin. Patient said they put her on clindamycin at the ER. At this time patient is being sent back to the ER as we do not have any testing available.[facility] 10-26-2023 Instructions* Patient Instructions* Jey Johnson MD - 10/26/2023 3:49 PM EDT Please discontinue spironolactone and provera for abpout 4 to 6 weeks before doing these labs ordered All labs to be done on fasting at 8 am Hold any other over the counter supplements for 3 days atleast before labs. Avoid any steroids until the labs are drawn documented in this encounterUniversity Hospitals St. [facility]09-06-2024 NoteHNO ID: [id number] Author: JEY JOHNSON MD Service: ? Author Type: Physician Type: Progress Notes Filed: 10/26/2023 18:35 Note Text: Endocrinology and Metabolism [place] Initial [facility] Visit Note REASON FOR CONSULT: Evaluation of ovarian hyperandrogenism REQUESTING PHYSICIAN: No referring provider defined for this encounter. Phone: N/A Fax: My final recommendations will be communicated back to the requesting physician by way of shared medical record or letter via US mail. HPI Marion Gutierrez is a 28 year old female presenting as a new patient to me for evaluation of ovarian hyperandrogenism. She is accompanied by her mother Both are poor historians Also GI referral says, concerns for AI She has gastroparesis for the last 6 months or more She has dizziness and lightheadedness to the point that she passes out. She has bloating and low appetite, sleeping 16 hours a day in the last 2.5 months She has vomiting , diarrhea and both sometimes She has coloscopy yesterday and had polyps removed Hirsutism started: puberty Patient uses mechanical hair removal (i.e. tweezers/waxing/shaving): cream weekly History of deepening of voice: No History of change in genitalia: No LMP: not specific, may be 8 months Menstrual flow: 3 days, mostly spotting for a day or so Menarche: 17 to 18 years old- mother thinks she was in 6th grade, patient reports she was in high school Number of Pregnancies: no Planning a : no Currently taking oral contraception: no. She used OCPs in the past 3 years ago Now she is on provera for 10 days each month She used metformin due to intolerance PAST MEDICAL HISTORY: PAST MEDICAL HISTORY No date: Autism spectrum disorder 05/2016: Bipolar disorder (HCC) No date: Borderline diabetic No date: Fatty liver No date: History of depression No date: IBS (irritable bowel syndrome) Comment: diarrhea No date: Iron deficiency anemia No date: Kyphosis PAST SURGICAL HISTORY: PAST SURGICAL HISTORY No date: ADDITIONAL SPINAL FUSION Comment: Thoraco-lumbar fusion No date: KNEE SURGERY HX; Left Comment: patellar fracture FAMILY HISTORY: FAMILY HISTORY Problem Relation Age of Onset Hypertension Father Heart Father Hypertension Mother Heart Mother Hypertension Brother Diabetes Paternal Grandfather Glaucoma Other SOCIAL HISTORY: Social History Tobacco Use Smoking status: Never Smokeless tobacco: Never Substance Use Topics Alcohol use: No Drug use: No MEDICATIONS: Current Outpatient Medications on File Prior to Visit Medication Sig ARIPiprazole lauroxil ER (ARISTADA) 441 mg/1.6 mL injection Inject intramuscularly. Very 28 days ONETOUCH VERIO TEST STRIPS test strip Cyanocobalamin 1,000 mcg subl Take 1,000 mcg by mouth. AJOVY SYRINGE 225 mg/1.5 mL syringe INJECT 1.5ML (1 SYRINGE) SUBCUTANEOUSLY EVERY MONTH hyoscyamine (LEVSIN) 0.125 mg tablet imipramine HCl (TOFRANIL) 25 mg tablet Take by mouth. lactulose 10 gram/15 mL solution TAKE 45 ML BY MOUTH TWICE DAILY NEEDED FOR CONSTIPATION. ONETOUCH DELICA PLUS LANCET 33 gauge medroxyPROGESTERone (PROVERA) 10 mg tablet metoclopramide HCl (REGLAN) 10 mg tablet Take 5 mg by mouth. metoprolol tartrate, short acting, (LOPRESSOR) 50 mg tablet Take 1 tablet by mouth every 12 hours. ULTICARE PEN NEEDLE 32 gauge x 1/4 polyethylene glycol 3350 17 gram/dose powder MIX 4 GRAMS WITH LIQUID AND DRINK ONCE DAILY rizatriptan (MAXALT) 10 mg tablet Take by mouth as needed. simvastatin (ZOCOR) 20 mg tablet Take 20 mg by mouth daily at bedtime. sucralfate (CARAFATE) 1 gram tablet Take 1 g by mouth four times daily. hydrOXYzine pamoate (VISTARIL) 25 mg capsule ferrous sulfate 325 mg (65 mg iron) tablet Take 325 mg by mouth every other day. spironolactone (ALDACTONE) 50 mg tablet Take 50 mg by mouth two times a day. pantoprazole DR (PROTONIX) 20 mg tablet Take 40 mg by mouth once daily. lithium carbonate (ESKALITH) 300 mg capsule Take 300 mg by mouth daily after breakfast. cholecalciferol, Vitamin D3, (VITAMIN D3) 1,250 mcg (50,000 unit) cap capsule Take 1 capsule by mouth one time a week. (Patient not taking: Reported on 10/26/2023) No current facility-administered medications on file prior to visit. ALLERGIES: ALLERGIES Allergen Reactions Ondansetron Anaphylaxis, Other: See Comments Tongue swelling Broccoli Diarrhea Cauliflower Diarrhea Anti Depressants [T* Other: See Comments Patient states she must take anti-depressants with a mood stabilizer or else she becomes suicidal. Escitalopram Other: See Comments Suicidal ideation suicidal Suicidal thoughts Gluten Flour Diarrhea Lactase Diarrhea, GI Upset Eats dairy products, just limit amount Lexapro [Escitalopr* Mental Status Change Seasonal Allergies Cough Tomato GI Upset Zofran (Pf) In Dext* Swelling, GI Upset Metformin Diarrhea, GI Upset Pollen Extracts Hives, Intolerance (more content not 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[facility]09-06-2024 History of Present illness Narrative* Jey Johnson MD - 10/26/2023 3:31 PM EDT Endocrinology and Metabolism [place] [facility] Visit Note REASON FOR CONSULT: Evaluation of ovarian hyperandrogenism REQUESTING PHYSICIAN: No referring provider defined for this encounter. Phone: N/A Fax: My final recommendations will be communicated back to the requesting physician by way of shared medical record or letter via US mail. HPI Marion Gutierrez is a 28 year old female presenting as a new patient to me for evaluation of ovarian hyperandrogenism. She is accompanied by her mother Both are poor historians Also GI referral says, concerns for AI She has gastroparesis for the last 6 months or more She has dizziness and lightheadedness to the point that she passes out. She has bloating and low appetite, sleeping 16 hours a day in the last 2.5 months She has vomiting , diarrhea and both sometimes She has coloscopy yesterday and had polyps removed Hirsutism started: puberty Patient uses mechanical hair removal (i.e. tweezers/waxing/shaving): cream weekly History of deepening of voice: No History of change in genitalia: No LMP: not specific, may be 8 months Menstrual flow: 3 days, mostly spotting for a day or so Menarche: 17 to 18 years old- mother thinks she was in 6th grade, patient reports she was in high school Number of Pregnancies: no Planning a : no Currently taking oral contraception: no. She used OCPs in the past 3 years ago Now she is on provera for 10 days each month She used metformin due to intolerance PAST MEDICAL HISTORY: PAST MEDICAL HISTORY No date: Autism spectrum disorder 05/2016: Bipolar disorder (HCC) No date: Borderline diabetic No date: Fatty liver No date: History of depression No date: IBS (irritable bowel syndrome) Comment: diarrhea No date: Iron deficiency anemia No date: Kyphosis PAST SURGICAL HISTORY: PAST SURGICAL HISTORY No date: ADDITIONAL SPINAL FUSION Comment: Thoraco-lumbar fusion No date: KNEE SURGERY HX; Left Comment: patellar fracture FAMILY HISTORY: FAMILY HISTORY Problem Relation Age of Onset Hypertension Father Heart Father Hypertension Mother Heart Mother Hypertension Brother Diabetes Paternal Grandfather Glaucoma Other SOCIAL HISTORY: Social History Tobacco Use Smoking status: Never Smokeless tobacco: Never Substance Use Topics Alcohol use: No Drug use: No MEDICATIONS: Current Outpatient Medications on File Prior to Visit Medication Sig ARIPiprazole lauroxil ER (ARISTADA) 441 mg/1.6 mL injection Inject intramuscularly. Very 28 days ONETOUCH VERIO TEST STRIPS test strip Cyanocobalamin 1,000 mcg subl Take 1,000 mcg by mouth. AJOVY SYRINGE 225 mg/1.5 mL syringe INJECT 1.5ML (1 SYRINGE) SUBCUTANEOUSLY EVERY MONTH hyoscyamine (LEVSIN) 0.125 mg tablet imipramine HCl (TOFRANIL) 25 mg tablet Take by mouth. lactulose 10 gram/15 mL solution TAKE 45 ML BY MOUTH TWICE DAILY NEEDED FOR CONSTIPATION. ONETOUCH DELICA PLUS LANCET 33 gauge medroxyPROGESTERone (PROVERA) 10 mg tablet metoclopramide HCl (REGLAN) 10 mg tablet Take 5 mg by mouth. metoprolol tartrate, short acting, (LOPRESSOR) 50 mg tablet Take 1 tablet by mouth every 12 hours. ULTICARE PEN NEEDLE 32 gauge x 1/4 polyethylene glycol 3350 17 gram/dose powder MIX 4 GRAMS WITH LIQUID AND DRINK ONCE DAILY rizatriptan (MAXALT) 10 mg tablet Take by mouth as needed. simvastatin (ZOCOR) 20 mg tablet Take 20 mg by mouth daily at bedtime. sucralfate (CARAFATE) 1 gram tablet Take 1 g by mouth four times daily. hydrOXYzine pamoate (VISTARIL) 25 mg capsule ferrous sulfate 325 mg (65 mg iron) tablet Take 325 mg by mouth every other day. spironolactone (ALDACTONE) 50 mg tablet Take 50 mg by mouth two times a day. pantoprazole DR (PROTONIX) 20 mg tablet Take 40 mg by mouth once daily. lithium carbonate (ESKALITH) 300 mg capsule Take 300 mg by mouth daily after breakfast. cholecalciferol, Vitamin D3, (VITAMIN D3) 1,250 mcg (50,000 unit) cap capsule Take 1 capsule by mouth one time a week. (Patient not taking: Reported on 10/26/2023) No current facility-administered medications on file prior to visit. ALLERGIES: ALLERGIES Allergen Reactions Ondansetron Anaphylaxis, Other: See Comments Tongue swelling Broccoli Diarrhea Cauliflower Diarrhea Anti Depressants [T* Other: See Comments Patient states she must take anti-depressants with a mood stabilizer or else she becomes suicidal. Escitalopram Other: See Comments Suicidal ideation suicidal Suicidal thoughts Gluten Flour Diarrhea Lactase Diarrhea, GI Upset Eats dairy products, just limit amount Lexapro [Escitalopr* Mental Status Change Seasonal Allergies Cough Tomato GI Upset Zofran (Pf) In Dext* Swelling, GI Upset Metformin Diarrhea, GI Upset Pollen Extracts Hives, Intolerance ROS Pertinent as per HPI PHYSICAL EXAM Pulse 61 Temp 36.6 C (97.9 F) (Temporal Artery) Ht 170.2 cm (5' 7) Wt 127.2 kg (280 lb 6.4 oz) LMP 02/19/2023 (Approximate) SpO2 99% BMI 43.92 kg/m General Appearance: Well appearing, alert, in no acute distress, well- hydrated,obese body habitus Skin: pale thin stretch espinoza on upper abdomen noted Eyes: Extraocular movements are intact. Neck: Supple, no adenopathy; thyroid symmetric, normal size, no bruits. Lungs: unlabored breathing on room air Heart: RRR Abdomen: obese abdomen Extremities: No deformities, edema, skin discoloration, clubbing or cyanosis. Musculoskeletal: No joint swelling, deformity, or tenderness. Peripheral Pulses: Normal. Neurologic: Gait normal. Reflexes normal and symmetric. PREVIOUS DATA Diagnostic tests reviewed for today's visit: Cortisol and ACTH normal on 07/17/2023 Cortisol, 24 HR UR Free on 07-23-2023 CORTISOL,F/24hr 46 ug/24 hr High 6-42 [facility] CORTISOL,U FREE 16 ug/L Normal Undefined [facility] Metanephrine Frac 24 HR UR on 07-23-2023 Metaneph,UR 24H 68 ug/24 hr Normal 36-209 [facility] Metanephrines,U 24 ug/L Normal Undefined [facility] Normetan,UR 24h 522 ug/24 hr High 95-449 [facility] Normetanephrine 183 ug/L Normal Undefined [facility] Catecholamines, 24 UR on 07-20-2023 Dopamine, Urine 580 ug/L Normal Undefined [facility] Dopamine,U,24HR 957 ug/24 hr High 0-510 [facility] Epineph.,U,24HR 5 ug/24 hr Normal 0-20 [facility] Epinephrine, U 3 ug/L Normal Undefined [facility] Norepin.,U,24HR 134 ug/24 hr Normal 0-135 [facility] Comment on above: Order Comment: Test(s) 673570-[id number], Urine; - Norepinephrine, Ur; [id number]-Homemrdm, Urinewas developed and its performance characteristicsdetermined by [employer]. It has notbeen cleared or approvedby the Food and Drug Administration. Performed By: #### L3600.0150 ####[facility] [id number] [place], [place] Norepinephrin,U 81 ug/L Normal Undefined [facility] Adrenocorticotropic Hormone on 07-17-2023 ACTH 9.7 pg/mL Normal 7.2-63.3 [facility] CORTISOL SERUM on 07-17-2023 CORTISOL 20.10 ug/dL Normal 3.44-22.45 [facility] Catecholamines, Plasma on 07-17-2023 DOPAMINE <30 Normal 0-48 [facility] EPINEPHRINE <15 Normal 0-62 [facility] NOREPINEPHRINE 429 pg/mL Normal 0-874 [facility] Gastrin, Serum on 07-17-2023 GASTRIN 265 pg/mL High 0-115 [facility] Insulin Level on 07-17-2023 INSULIN,FASTING 93.7 uIU/mL High 2.6-24.9 [facility] Insulin Like Growth Factor on 07-17-2023 SOMATOMEDIN C 122 ng/mL Normal 91-308 [facility] Chromogranin A 206.0 ng/mL Abnormal 0.0-101.8 [facility] Renin/Aldosterone Activity on 07-17-2023 ALD/RENIN RATIO 11.6 Normal 0.0-30.0 [facility] Performed By: #### L3400.1350, L3300.3500, L3300.1800, L3430.0100, L3300.1000, L3300.1050, L3100.4810 ####[facility] [address] [place], [place], [id number] ALDOSTERONE,S 45.0 ng/dL High 0.0-30.0 [facility] RENIN, PLASMA 3.873 ng/mL/hr Normal 0.167-5.380 [facility] BUN/CRE 18.1 RATIO Normal 10-20 [facility] CA,Total 9.0 mg/dL Normal 8.5-10.1 [facility] Chloride [Moles/Vol] 110 mmol/L High 98-107 [facility] CO2 [Moles/Vol] 25.0 mmol/L Normal 21.0-32.0 [facility] Creatinine [Mass/Vol] 0.66 mg/dL Normal 0.55-1.02 [facility] Performed By: #### L100.0100, L500.4050, L506.1000, L501.34370, L501.9520, L506.0400, L501.9060 ####[facility] [address] [place], [place], [id number] EST GFR - AA 138 mL/min Normal >60 [facility] Performed By: #### L100.0100, L500.4050, L506.1000, L501.04645, L501.9520, L506.0400, L501.9060 ####[facility] [address] [place], [place], [id number] GAP 3 Low 5-15 [facility] GFR/1.73 sq M.predicted among non-blacks MDRD (S/P/Bld) [Vol rate/Area] 114 mL/min/(1.73_m2) Normal>60 [facility] Globulin (S) [Mass/Vol] 3.8 g/dL Normal 2.2-4.2 [facility] Glucose [Mass/Vol] 124 mg/dL High 74-106 [facility] Performed By: #### L100.0100, L500.4050, L506.1000, L501.73359, L501.9520, L506.0400, L501.9060 ####[facility] [address] [place], [address] Potassium [Moles/Vol] 4.0 mmol/L Normal 3.5-5.1 [facility] Sodium [Moles/Vol] 138 mmol/L Normal 136-145 [facility] T PROT 7.0 g/dL Normal 6.4-8.2 [facility] Urea nitrogen [Mass/Vol] 12 mg/dL Normal 7-18 [facility] Free T3 on 07-05-2023 Free T3 [Mass/Vol] 2.4 pg/mL Normal 2.18-3.98 [facility] Comment on above: Performed By: #### L100.0100, L500.4050, L506.1000, L501.24367, L501.9520, L506.0400, L501.9060 ####[facility] [address] [place], [address] [place] on 07-05-2023 LI 0.80 mmol/L Normal 0.60-1.20 [facility] T4 Free Direct on 07-05-2023 T4 FREE DIRECT 1.04 ng/dL Normal 0.76-1.46 [facility] Comment on above: Performed By: #### L100.0100, L500.4050, L506.1000, L501.74007, L501.9520, L506.0400, L501.9060 ####[facility] [address] [place], [address] Thyroid Stim Hormone (TSH) on 07-05-2023 TSH 2.10 uIU/mL Normal 0.358-3.74 [facility] Vitamin D,25 Hydroxy on 07-05-2023 Vitamin D 25-OH 30.3 ng/mL Normal [facility] ASSESSMENT AND PLAN Patient has autism and Irregular cycles/amenorrhea: Check for total, bioavailable and free testosterone, SHBG, DHEA, androstenedione, prolactin, TSH, free T4, estrogen, FSH, LH Due to dizziness/lightheadedness, will check for cortisol and ACTH once again. These labs checked in 06/2023 at [facility] were normal, but her GI referral mentions AI concerns, unsure if any other lab test done in the interim and we are missing Patient reports she is walking with a cane to help with dizziness., and that she was advised to drinks alt water Will also check for insulin., glucose and Hba1c- hx of pre-diabetes, along with PCOS On extensive chart review after the encounter, following labs were noted 24 hr urine free cortisol checked at [facility], along with 24 hr urine metanephrines and catecholamines, within normal range/acceptable. Plasma metanephrines and catecholamines within normal range. Aldosterone and renin levels were checked and were within normal again, however patient has been onspironolactone and she could not confirm for how long she has been on it. Per chart review probablyon it since 08/08/2021. TSH, free T3, free T4 within normal, as was 25-hydroxy vitamin D Advised to do all the above labs ordered, at once, off of spironolactone for 4 to 6 weeks, as well as to stay away from provera for the same amount of time before labs - fasting at 8 am suggested Repeated multiple times, and both reports understanding how to do them Discussed treatment options for PCOS- she does not tolerate metformin, OCPs are not preferable due to side effects of HTN, hence discussed weight loss with diet and exercise to help cycles if this isPCOS If different diagnosis, treatment will be discussed in detail again - Advised on superintendent terminal risks of PCOS including increased risk for endometrial cancer, diabetes, CAD, hyperlipidemia Medical Decision Making: Problems: Moderate: New problem with uncertain prognosis Data: Unique test result(s) reviewed: 3+ Unique test(s) ordered: 3+ Independent interpretation of test from other physician/QHCP Medical Decision Making Level: 4 - Moderate The patient should follow-up in 2 months. Jey Johnson MD Endocrinology Associate Staff [facility] Endocrinology and Metabolism [place] [phone] documented in this encounterUniversity Hospitals St. [facility]09-04-2024 [facility]07-25-2024 NoteHNO ID: [id number] Author: MJ BALDERAS MD Service: ? Author Type: Physician Type: Progress Notes Filed: 09/13/2023 16:57 Note Text: Patient presents with: Ear Pain: Left ear pain x 1 week HPI: Feeling left ear pain for 1 week; worsened the last couple days after a shower. Positive symptoms: Earache, Negative symptoms: Cough, Sinus pressure, Nasal Congestion, Rhinorrhea, Fever, otorrhea, Was able to remove some wax. PAST MEDICAL HISTORY Diagnosis Date Autism spectrum disorder Bipolar disorder (HCC) 05/2016 Borderline diabetic Fatty liver History of depression IBS (irritable bowel syndrome) diarrhea Iron deficiency anemia Kyphosis MEDICATIONS: Current Outpatient Medications Medication Sig hydrOXYzine pamoate (VISTARIL) 25 mg capsule ferrous sulfate 325 mg (65 mg iron) tablet Take 325 mg by mouth. spironolactone (ALDACTONE) 50 mg tablet Take by mouth. amitriptyline (ELAVIL) 25 mg tablet SPRINTEC 0.25-35 mg-mcg per tablet Take 1 tablet by mouth once daily. pantoprazole DR (PROTONIX) 20 mg tablet Take 1 tablet by mouth once daily. lithium carbonate (ESKALITH) 300 mg capsule Take 300 mg by mouth twice daily. cholecalciferol, Vitamin D3, (VITAMIN D3) 1,250 mcg (50,000 unit) cap capsule Take 1 capsule by mouth one time a week. ARIPiprazole (ABILIFY) 15 mg tablet Take 7.5 mg by mouth once daily. No current facility-administered medications for this visit. ALLERGIES: ALLERGIES Allergen Reactions Anti Depressants [T* Other: See Comments Patient states she must take anti-depressants with a mood stabilizer or else she becomes suicidal. Gluten Flour Diarrhea Lexapro [Escitalopr* Mental Status Change Zofran (Pf) In Dext* Swelling, GI Upset VITALS: BP 104/68 Pulse 85 Temp 37.2 ?C (98.9 ?F) Resp 20 Wt 135.5 kg (298 lb 11.6 oz) SpO2 95% PHYSICAL EXAM: GEN: Alert. No acute distress. Accompanied by her mother. HEENT: PERRL, EOMI, conjunctiva clear Ears: right canal clear. Left canal occluded by cerumen. TMs without erythema, bulge, or effusion after removal Sinuses: non-tender frontal sinus, non-tender maxillary sinuses Throat: moist mucous membranes, no erythema, no exudate Neck: supple, no thyromegaly, no lymphadenopathy HEART: regular rate and rhythm, no murmurs LUNGS: clear to auscultation, no wheezes or crackles, no increased WOB ASSESSMENT/PLAN: 1. Impacted cerumen of left ear - ICD9: 380.4, ICD10: H61.22 - AMBULATORY EAR LAVAGE/IRRIGATION successful removal by staff water irrigation. Canal clear and tympanic membrane without erythema/bulging/effusion after the procedure. Discomfort and hearing decrease resolved. Mj Balderas [facility]07-25-2024 History of Present illness Narrative* Mj Balderas MD - 09/13/2023 4:24 PM EDT Patient presents with: Ear Pain: Left ear pain x 1 week HPI: Feeling left ear pain for 1 week; worsened the last couple days after a shower. Positive symptoms: Earache, Negative symptoms: Cough, Sinus pressure, Nasal Congestion, Rhinorrhea, Fever, otorrhea, Was able to remove some wax. PAST MEDICAL HISTORY Diagnosis Date Autism spectrum disorder Bipolar disorder (HCC) 05/2016 Borderline diabetic Fatty liver History of depression IBS (irritable bowel syndrome) diarrhea Iron deficiency anemia Kyphosis MEDICATIONS: Current Outpatient Medications Medication Sig hydrOXYzine pamoate (VISTARIL) 25 mg capsule ferrous sulfate 325 mg (65 mg iron) tablet Take 325 mg by mouth. spironolactone (ALDACTONE) 50 mg tablet Take by mouth. amitriptyline (ELAVIL) 25 mg tablet SPRINTEC 0.25-35 mg-mcg per tablet Take 1 tablet by mouth once daily. pantoprazole DR (PROTONIX) 20 mg tablet Take 1 tablet by mouth once daily. lithium carbonate (ESKALITH) 300 mg capsule Take 300 mg by mouth twice daily. cholecalciferol, Vitamin D3, (VITAMIN D3) 1,250 mcg (50,000 unit) cap capsule Take 1 capsule by mouth one time a week. ARIPiprazole (ABILIFY) 15 mg tablet Take 7.5 mg by mouth once daily. No current facility-administered medications for this visit. ALLERGIES: ALLERGIES Allergen Reactions Anti Depressants [T* Other: See Comments Patient states she must take anti-depressants with a mood stabilizer or else she becomes suicidal. Gluten Flour Diarrhea Lexapro [Escitalopr* Mental Status Change Zofran (Pf) In Dext* Swelling, GI Upset VITALS: BP 104/68 Pulse 85 Temp 37.2 C (98.9 F) Resp 20 Wt 135.5 kg (298 lb 11.6 oz) SpO2 95% PHYSICAL EXAM: GEN: Alert. No acute distress. Accompanied by her mother. HEENT: PERRL, EOMI, conjunctiva clear Ears: right canal clear. Left canal occluded by cerumen. TMs without erythema, bulge, or effusion after removal Sinuses: non-tender frontal sinus, non-tender maxillary sinuses Throat: moist mucous membranes, no erythema, no exudate Neck: supple, no thyromegaly, no lymphadenopathy HEART: regular rate and rhythm, no murmurs LUNGS: clear to auscultation, no wheezes or crackles, no increased WOB ASSESSMENT/PLAN: 1. Impacted cerumen of left ear - ICD9: 380.4, ICD10: H61.22 - AMBULATORY EAR LAVAGE/IRRIGATION successful removal by staff water irrigation. Canal clear and tympanic membrane without erythema/bulging/effusion after the procedure. Discomfort and hearing decrease resolved. Mj Balderas MD documented in this encounterUniversity Hospitals St. [facility]03-19-2024 History of Present illness Narrative* Louis Schmidt APRN.FISH - 05/08/2023 2:29 PM EDT Patient came in with complaints of headache that is a 20 out of 10. Patient says it is making her very dizzy and unsteady. Patient says she is taken 3 meclizine a day with no relief. Patient says this is never happened before. Caregiver was instructed to take her to the emergency room. They were both okay with this plan. documented in this encounterUniversity Hospitals St. [facility]02-17-2024 Discharge summary Author Ozzy Bright [facility] April 08, 2023 6:39am Note Date/Time April 07, 2023 4:27pm [facility] Medical Records Department [address] [place] [address] Emergency Department Summary 04/07/23 MR#: [id number] Acct: [id number] Name: MARION GUTIERREZ Rep #:[id number] : 1995 From: Lianet HICKEY PCP: HORTENSIA Sotomayor Status:REG ER Location: ED ADDENDUM by Dr. Ozzy Bright DO on 04/08/23 at 0639 Care of the patient was turned over to me pending psychiatric placement. Patient remained calm and cooperative here in the emergency department on my shift. Care of the patient will be turned over to the oncoming physician pending psychiatric placement. 04/08/23 0639<Electronically signed by Ozzy Bright DO> Cosigner Signature (if applicable): 04/07/232128 <Electronically signed by Bridger Kamara DO> cc: HORTENSIA Da Silva ~* Signed HPI <EDELMIRA White - Last Filed: 04/07/23 20:30> HPI - Psych History of Present Illness Chief Complaint: Suicidal Narrative Narrative: Patient presenting today due to suicidal thoughts. She reports that she has had suicidal thoughts on and off for several years but it has become more intense and frequent over the past week. She reports that her plan would be to, overdose on my psych pills. She called the counseling center today and spoke with crisis who encouraged her to come in for medical clearance for psychiatric placement. She reports that she has been placed in the past. She reports a history of bipolar disorder, anxiety, and depression. She denies any substance use, visual/tactile hallucinations, and homicidal thoughts. [facility] <EDELMIRA White - Last Filed: 04/07/23 20:30> [facility] Medical History Anxiety Arthritis Autism Back pain Bipolar 1 disorder Bipolar disorder Cellulitis Cirrhosis Depression Depression with anxiety Diabetes Dietary restriction GERD (gastroesophageal reflux disease) Heartburn History of echocardiogram IBS (irritable bowel syndrome) Irregular heart beat Kidney stones Migraine headache Migraines Non-smoker Obesity PCOS (polycystic ovarian syndrome) Syncope Wears glasses Home Medications lithium carbonate 300 mg capsule 300 mg PO DAILY Bipolar 04/05/17 [History Last Taken 12/18/22] ferrous sulfate 325 mg (65 mg iron) tablet (FeroSul) 325 mg PO QODAY supplement 01/24/22 [History Last Taken 12/16/22] lithium carbonate 600 mg capsule 600 mg PO QHS mental health 01/24/22 [History Last Taken 12/17/22] metoclopramide HCl 10 mg tablet (Reglan) 5 mg (1/2 x 10 mg) PO BID nausea and vomiting #28 tabs 06/21/22 [Rx Last Taken 12/18/22] pantoprazole 40 mg tablet,delayed release 40 mg PO QHS reflux 08/04/22 [History Last Taken 12/17/22] fremanezumab-vfrm 225 mg/1.5 mL subcutaneous auto-injector (Ajovy) 225 mg subcutQMONTH migraine 10/03/22 [History Last Taken 11/21/22] spironolactone 50 mg tablet See Rx Instructions .Route .COMPLEX diuretic #60 TABLETS 11/01/22 [Rx Last Taken 12/18/22] aripiprazole lauroxil 441 mg/1.6 mL suspension, ext.rel. IM syringe (Aristada) 441 mg IM .COMPLEX mental health 12/18/22 [History Last Taken 12/18/22] cholecalciferol (vitamin D3) 25 mcg (1,000 unit) tablet (Vitamin D3) 25 mcg PO DAILY vitamin 12/18/22 [History Last Taken 12/17/22] imipramine HCl 25 mg tablet 25 mg PO DAILY mental health 12/18/22 [History Last Taken 12/17/22] famotidine 40 mg tablet 40 mg PO BID reflux #60 tabs 01/19/23 [Rx Last Taken Unknown] budesonide 3 mg capsule,delayed,extended release 3 mg PO DAILY 30 days #30 ea 02/21/23 [Rx Last Taken Unknown] mecobalamin (vitamin B12) 1,000 mcg lozenges 1,000 mcg PO DAILY 03/20/23 [History Last Taken Unknown] Allergy/AdvReac Type Severity Reaction Status Date / Time metformin Allergy Mild Nausea/Vom/ Verified 04/07/23 16:01 Diarrhea pollen extracts Allergy Hives Verified 04/07/23 16:01 escitalopram [From Lexapro] AdvReac Other Verified 04/07/23 16:01 lactase [From Dairy Aid] AdvReac Upset Verified 04/07/23 16:01 Stomach ondansetron AdvReac Anaphylaxis Verified 04/07/23 16:01 [From Zofran (as hydrochloride)] Family History Mother Uterine cancer Other Asthma Depression Diabetes GERD (gastroesophageal reflux disease) Heart disease Hyperlipidemia Hypertension Surgical History H/O knee surgery H/O spinal fusion History of colonoscopy History of esophagogastroduodenoscopy (EGD) History of tonsillectomy and adenoidectomy Social History household members: none housing: apartment current occupational status: unemployed history of recent travel: No Smoking Status: Never smoker alcohol intake: current alcohol intake frequency: holidays/special occasions only substance use type: does not use what type of physical activity do you participate in: walking frequency: daily seatbelt use: always do you feel safe at home: Yes additional social history: single ROS <EDELMIRA White - Last Filed: 04/07/23 20:30> ROS ED Constitutional Constitutional ED: Denies chills or fever(s) Cardiovascular Cardiovascular: Denies chest pain Respiratory/Chest Respiratory/Chest: Denies cough or dyspnea Gastrointestinal Gastrointestinal: Denies abdominal pain, nausea or vomiting Musculoskeletal Musculoskeletal: Denies arthralgias or myalgias Integumentary Denies Abrasions or rash Neurologic Neurologic: Denies weakness Psychiatric Psychiatric: Reports anxiety, depression, suicidal ideation and suicidal thoughts; Denies hallucinations or homicidal ideation Allergic/Immunologic Allergic/Immunologic ED: Denies lip swelling, mouth swelling or urticaria EXAM <EDELMIRA White - Last Filed: 04/07/23 20:30> Physical Exam Const Vital Signs: 04/07/23 16:02 04/07/23 16:01 04/07/23 19:00 Temperature 97.5 F L 97.5 F L Temperature Source Temporal Temporal Pulse Rate 120 H 120 H Respiratory Rate 18 18 18 Blood Pressure 153/97 H 153/97 H Blood Pressure Mean 115 115 Pulse Ox Oxygen Delivery Method Room Air 04/07/23 20:00 Temperature Temperature Source Pulse Rate 99 Respiratory Rate 20 H Blood Pressure 129/71 H Blood Pressure Mean 90 Pulse Ox 94 Oxygen Delivery Method Room Air Positive well nourished, well developed and no apparent distress General Appearance ED: well developed HEENT Reports normocephalic and head/scalp atraumatic Mouth ED: Yes moist mucous membranes normal Eyes PERRL and EOMs intact bilaterally Neck full ROM and supple Chest Wall inspection of chest normal Resp normal respiratory effort and clear to auscultation bilaterally Cardio regular rate and regular rhythm GI soft to palpation, non-tender, non-distended and no masses Back/Spine normal ROM and normal to inspection Extremity normal to inspection and full ROM Neuro oriented x3, CN's II-XII intact bilaterally, moves all extremities, no focal motor deficits and no sensory deficits noted Sensorium / Orientation: awake and alert Psych mental status grossly normal and cooperative Appearance: grossly normal Attitude: withdrawn Activity / Motor Behavior: avoids eye contact Mood & Affect: depressed, apathetic and flat affect Thought Content: suicidality Insight: poor Judgement: poor Skin no rashes or lesions noted and no wounds <Dr. Bridger Kamara DO - Last Filed: 04/07/23 21:29> Physical Exam Const Vital Signs: 04/07/23 16:02 04/07/23 16:01 04/07/23 19:00 Temperature 97.5 F L 97.5 F L Temperature Source Temporal Temporal Pulse Rate 120 H 120 H Respiratory Rate 18 18 18 Blood Pressure 153/97 H 153/97 H Blood Pressure Mean 115 115 Pulse Ox Oxygen Delivery Method Room Air 04/07/23 20:00 Temperature Temperature Source Pulse Rate 99 Respiratory Rate 20 H Blood Pressure 129/71 H Blood Pressure Mean 90 Pulse Ox 94 Oxygen Delivery Method Room Air MDM <EDELMIRA White - Last Filed: 04/07/23 20:30> [facility] Narrative Medical decision making narrative: Patient presenting due to suicidal thoughts that have been increasing over the past week. She does follow with crisis who encouraged her to come in for psychiatric placement. I do agree that patient would benefit from placement. Clearance labs will be obtained. Labs overall are unremarkable, she is medically cleared for psychiatric placement. Placement is pending. Lab Data Attestation: I reviewed the patient's lab results. Labs: Laboratory Results - last 24 hr 04/07/23 04/07/23 16:55 18:10 WBC 9.3 RBC 4.67 Hgb 12.7 Hct 40.4 MCV 86.5 MCH 27.2 MCHC 31.4 L RDW Std Deviation 43.9 RDW Coeff of Delmy 13.9 Plt Count 340 MPV 9.0 Immature Gran % (Auto) 0.400 Neut % (Auto) 66.2 Lymph % (Auto) 24.6 Trigg % (Auto) 7.3 Eos % (Auto) 1.0 Baso % (Auto) 0.5 Absolute Neuts (auto) 6.1 Absolute Lymphs (auto) 2.28 Nucleated RBC % 0 Sodium 140 Potassium 3.8 Chloride 113 H Carbon Dioxide 23.0 Anion Gap 4 L BUN 11 Creatinine 0.70 Estim Creat Clear Calc 170.69 Est GFR (MDRD) Af Amer 130 Est GFR (MDRD) Non-Af 108 BUN/Creatinine Ratio 15.8 Glucose 122 H Calcium 9.4 Serum , Qual NEGATIVE Urine Opiates Screen NEGATIVE Urine Methadone Screen NEGATIVE Ur Barbiturates Screen NEGATIVE Ur Phencyclidine Scrn NEGATIVE Ur Amphetamines Screen NEGATIVE MDMA (Ecstasy) Screen NEGATIVE U Benzodiazepines Scrn NEGATIVE Urine Cocaine Screen NEGATIVE U Cannabinoids Screen NEGATIVE Ur Drug Screen Comment Ethyl Alcohol < 3.0 <Dr. Bridger Kamara, DO - Last Filed: 04/07/23 21:29> [facility] Lab Data Labs: Laboratory Results - last 24 hr 04/07/23 04/07/23 16:55 18:10 WBC 9.3 RBC 4.67 Hgb 12.7 Hct 40.4 MCV 86.5 MCH 27.2 MCHC 31.4 L RDW Std Deviation 43.9 RDW Coeff of Delmy 13.9 Plt Count 340 MPV 9.0 Immature Gran % (Auto) 0.400 Neut % (Auto) 66.2 Lymph % (Auto) 24.6 Trigg % (Auto) 7.3 Eos % (Auto) 1.0 Baso % (Auto) 0.5 Absolute Neuts (auto) 6.1 Absolute Lymphs (auto) 2.28 Nucleated RBC % 0 Sodium 140 Potassium 3.8 Chloride 113 H Carbon Dioxide 23.0 Anion Gap 4 L BUN 11 Creatinine 0.70 Estim Creat Clear Calc 170.69 Est GFR (MDRD) Af Amer 130 Est GFR (MDRD) Non-Af 108 BUN/Creatinine Ratio 15.8 Glucose 122 H Calcium 9.4 Serum , Qual NEGATIVE Urine Opiates Screen NEGATIVE Urine Methadone Screen NEGATIVE Ur Barbiturates Screen NEGATIVE Ur Phencyclidine Scrn NEGATIVE Ur Amphetamines Screen NEGATIVE MDMA (Ecstasy) Screen NEGATIVE U Benzodiazepines Scrn NEGATIVE Urine Cocaine Screen NEGATIVE U Cannabinoids Screen NEGATIVE Ur Drug Screen Comment Ethyl Alcohol < 3.0 Treatment and Re-Evaluation Narrative: ED attending note: I evaluated the patient in conjunction with the SHARON. I agree with his/her statements and above findings. I have personally performed a face to face assessment of the patient and have reviewed the SHARON Note. I performed a substantive portion of the visit including all aspects of the following. I personally saw the patient performed chart review, physical exam, reviewed labs,imaging (if obtained), and formulated a treatment and management plan. This note was generated with [employer] dictation software. It may contain incorrectwords, spelling, and punctuation that were not noted in review of the chart prior to signing. Discharge Plan Triage Chief Complaint: Suicidal ED Midlevel Provider: Lianet Worrell ED Provider: Bridger Kamara Dx/Rx/DC Orders Clinical Impression: Suicidal ideations, Bipolar disorder Prescriptions: No Action Ajovy Autoinjector 225 mg/1.5 mL auto-injector 225 mg subcut QMONTH Patient Comments: PT STATES USES BETWEEN FIRST AND FIFTH OF EACH MONTH mecobalamin (vitamin B12) 1,000 mcg lozenge 1,000 mcg PO DAILY Rx Instructions: allow to dissolve in mouth OR may chew lightly before swallowing lithium carbonate 300 MG capsule 300 mg PO DAILY lithium carbonate 600 mg Capsule 600 mg PO QHS ferrous sulfate [FeroSul] 325 mg (65 mg iron) tablet 325 mg PO QODAY pantoprazole 40 mg Tablet,Delayed Release (Dr/Ec) 40 mg PO QHS imipramine HCl 25 mg tablet 25 mg PO DAILY cholecalciferol (vitamin D3) [Vitamin D3] 25 mcg (1,000 unit) tablet 25 mcg PO DAILY Aristada 441 mg/1.6 mL suspension,extended rel syring 441 mg IM .COMPLEX Rx Instructions: 441 mg intramuscularly Q28D; metoclopramide HCl [Reglan] 10 mg tablet 5 mg PO BID Qty: 28 11RF spironolactone 50 mg tablet See Rx Instructions .ROUTE .COMPLEX Qty: 60 6RF Dose Instruction: TAKE 1 TABLET BY MOUTH TWICE A DAY Rx Instructions: TAKE 1 TABLET BY MOUTH TWICE A DAY famotidine 40 mg tablet 40 mg PO BID Qty: 60 2RF budesonide 3 mg capsule,delayed,extend.release 3 mg PO DAILY 30 Days Qty: 30 3RF Patient Comments: PT STATES SHE IS UNSURE IF SHE IS STILL TAKING THIS MED Primary Care Provider: Naina Da Silva NP Referrals: Naina Da Silva NP, [employer] [Primary Care Provider] - What to do if you have Problems For any increased pain, shortness of breath, bleeding, nausea or vomiting, chestpain, or any unexpected problems, contact your Primary Care Provider. Call [facility] ([phone]) or report to the closest Emergency Room. Call 911 if necessary. 04/07/232029 <Electronically signed by Lianet HICKEY> Cosigner Signature (if applicable): 04/07/232128 <Electronically signed by Bridger Kamara DO> CC: SIRENA-C Naina Da Silva ~ Signed [facility] Work Phone: 1(281) 367-693712-11-2023 Discharge summary Author Domitila Carr [facility] January 29, 2023 2:25pm Note Date/Time January 29, 2023 2:25pm [facility] [address] [place] [address] [address] [place] [address] / REHABILITATION SERVICES DISCHARGE SUMMARY MR#: [id number] Acct: [id number] Name: MARION GUTIERREZ Rep #: [id number] : 1995 27 From: Domitila Carr MP T Referring Dr.: Dr. Laura Li MD Status: REG R Insurance: [facility] [employer]URANCE Discharge Summary D/C summary: It has been my pleasure to treat MARION GUTIERREZ referred by Dr. Laura Li MD, with the diagnosis of syncope and weakness for a total of 3 visit(s). Discharge Date: 01/29/23 Please see the following information for a summary of their discharge status. Subjective Subjective: Pt reports that she only got dizzy once since last time and she was walking and moving her head too fast. No other dizziness except that one. She is DM and her blood sugar was 66 so that could have been part of it. Pt reportsno weakness in her legs. Pain COLEMAN: Pain Intensity (Out of 10): 5 Overall Improvement % Improvement: 100 Objective Objective/Function: Be able to complete 1 min each VOR in standing with no dizziness both vertical and horizontal Walking with horizontal head turns and vertical head turns without any dizziness standing on blue foam with head turns she had a slight increase in dizziness butnot much. Goals Goal 1:: I HEP Goal Progress: Goal Met Goal 2:: Be able to complete 1 min VOR in standing with no dizziness both vertical and horizontal Goal Progress: Goal Met Goal 3:: Be able to walk with head turns without feeling dizzy Goal Progress: Goal Met Goal 4:: Test and treat LE weakness if deficits are present Plan Plan: D/C PT to HEP D/C Information Discharge Comments: DC PT to HEP d/c sentence: If there are questions or concerns regarding this patient's physical therapy, please feel free to call me at [phone]. Thank you for the referral of thispatient. Sincerely, WALLY Hale Balance/Gait/Functional tests Balance/Special Test Scores Lower Extremity Functional Score: 75 Improvement % Improvement: 100 <Electronically signed by Domitila Carr MPT> 01/29/23 1429 CC: HORTENSIA Da Silva; Dr. Laura Li MD ~ Signed [facility] Work Phone: 1(247) 196-342411-01-2023 Discharge summary Author Laura Li [facility] December 20, 2022 11:29am Note Date/Time December 20, 2022 1 1:28am [facility] Medical Records Department [address] [place] [address] Discharge Summary 12/20/22 1127 MR#: [id number] Acct: [id number] Name: MARION GUTIERREZ Rep #:[id number] : 1995 27 From: Laura Li MD PCP: [facility] atus:ADM IN Location: [facility] [id number] Providers Date of Admission: 12/19/22 Date of Discharge: 12/20/22 Primary Care Physician: [facility] Reason For Visit: SYNCOPE Diagnosis Discharge Diagnosis (1) Syncope: Status: Acute Code(s): R55 - Syncope and collapse Qualifiers: Encounter type: initial encounter Plan Patient is a 27-year-old lady who presented with syncope and presyncope admittedto monitored bed for subsequent management 1. Syncope ? Suspected to secondary to orthostatic hypotension. Patient was found to have positive orthostasis. Work-up including echo and serial cardiac enzymes negative to date. Patient was on spironolactone and losartan on admission held. Resuscitated with IV fluids ? Random cortisol level came back within normal limits plan is for patient to bedischarged home with discontinuation of her antihypertensive 2. Essential hypertension ? Patient antihypertensives held in view of her positive orthostasis 3. Autism ? Supportive care 4. Bipolar disorder ? Patient is on Abilify and lithium continue 5. Polycystic ovarian disease ? Patient with spironolactone 6. Class III obesity with BMI of 45.9 ? Complicating care weight loss advised 7. DVT prophylaxis ? SC Lovenox Medications at Discharge Home Medications lithium carbonate 300 mg capsule 300 mg PO DAILY Bipolar 04/05/17 ferrous sulfate 325 mg (65 mg iron) tablet (FeroSul) 325 mg PO QODAY 01/24/22 lithium carbonate 600 mg capsule 600 mg PO QHS 01/24/22 metoclopramide HCl 10 mg tablet (Reglan) 5 mg (1/2 x 10 mg) PO BID nausea and vomiting #28 tabs 06/21/22 pantoprazole 40 mg tablet,delayed release 40 mg PO DAILY 08/04/22 fremanezumab-vfrm 225 mg/1.5 mL subcutaneous auto-injector (Ajovy) 225 mg subcutQMONTH 10/03/22 budesonide 3 mg capsule,delayed,extended release 9 mg (3 x 3 mg) PO DAILY #90 ea10/10/22 famotidine 40 mg tablet 40 mg PO BID #60 tabs 10/31/22 spironolactone 50 mg tablet See Rx Instructions .Route .COMPLEX #60 TABLETS 11/01/22 aripiprazole lauroxil 441 mg/1.6 mL suspension, ext.rel. IM syringe (Aristada) 441 mg IM .COMPLEX 12/18/22 cholecalciferol (vitamin D3) 25 mcg (1,000 unit) tablet (Vitamin D3) 25 mcg PO DAILY 12/18/22 imipramine HCl 25 mg tablet 25 mg PO DAILY 12/18/22 Hospital Course Summary of Care Provided Minutes Spent on Discharge: 35 Physical Exam Narrative GENERAL: cooperative HEENT: Atraumatic; normocephalic EYES; Anicteric, Normal Conjunctiva NECK; supple, normal thyroid, RESPIRATORY: Diminished to auscultation CARDIOVASCULAR: Regular S1 S2, GI: soft, normoactive bowel sounds, : No Renal angle tenderness; EXTREMITIES: No edema, no clubbing, MUSCULOSKELETAL: no muscle wasting NEURO: Awake; no lateralizing signs. SKIN: No Rash PSYCH; Flat affect Weight / BMI Weight Weight: 129.1 kg Body Mass Index (BMI) 45.9 ABG / Lab / Microbiology Data 12/20/22 05:00 12/20/22 05:00 Laboratory: Laboratory Results - last 24 hr 12/20/22 05:00: WBC 6.4, RBC 3.98 L, Hgb 11.5 L, Hct 36.3 L, MCV 91.2, MCH 28.9,MCHC 31.7 L, RDW Std Deviation 44.9 H, RDW Coeff of Delmy 13.3, Plt Count 322, MPV9.1, Immature Gran % (Auto) 0.200, Neut % (Auto) 55.7, Lymph % (Auto) 34.0, Trigg% (Auto) 7.5, Eos % (Auto) 2.0, Baso % (Auto) 0.6, Absolute Neuts (auto) 3.6, Absolute Lymphs (auto) 2.18, Nucleated RBC % 0, Sodium 140, Potassium 3.6, Chloride 110 H, Carbon Dioxide 24.0, Anion Gap 6, BUN 12, Creatinine 0.60, EstimCreat Clear Calc 133.01, Est GFR (MDRD) Af Amer 155, Est GFR (MDRD) Non-Af 128, BUN/Creatinine Ratio 20.0, Glucose 109 H, Calcium 8.5, Magnesium 2.2, Cortisol 13.40 D/C Instructions Discharge Diet: No restrictions Discharge Activity: Return to Normal Activity Call your doctor if you observe: Fever of 101 or Higher, Shortness of breath, Fainting spells and Chest pain Meaningful Use Info Meaningful Use Diagnoses (Choose all that apply): None applicable Discharge Plan Admission Admit Date/Time: 12/19/22 15:48 Attending Provider: Laura Li [facility] Providers: [place] Wisdom Discharge Orders/Prescriptions Prescriptions: Continued Ajovy Autoinjector 225 mg/1.5 mL auto-injector 225 mg subcut QMONTH Patient Comments: PT STATES USES BETWEEN FIRST AND FIFTH OF EACH MONTH lithium carbonate 300 MG capsule 300 mg PO DAILY lithium carbonate 600 mg Capsule 600 mg PO QHS ferrous sulfate [FeroSul] 325 mg (65 mg iron) tablet 325 mg PO QODAY pantoprazole 40 mg Tablet,Delayed Release (Dr/Ec) 40 mg PO DAILY imipramine HCl 25 mg tablet 25 mg PO DAILY cholecalciferol (vitamin D3) [Vitamin D3] 25 mcg (1,000 unit) tablet 25 mcg PO DAILY Aristada 441 mg/1.6 mL suspension,extended rel syring 441 mg IM .COMPLEX Rx Instructions: 441 mg intramuscularly Q28D; metoclopramide HCl [Reglan] 10 mg tablet 5 mg PO BID Qty: 28 11RF budesonide 3 mg capsule,delayed,extend.release 9 mg PO DAILY Qty: 90 2RF Patient Comments: PT STATES SHE IS UNSURE IF SHE IS STILL TAKING THIS MED famotidine 40 mg tablet 40 mg PO BID Qty: 60 2RF spironolactone 50 mg tablet See Rx Instructions .ROUTE .COMPLEX Qty: 60 6RF Dose Instruction: TAKE 1 TABLET BY MOUTH TWICE A DAY Rx Instructions: TAKE 1 TABLET BY MOUTH TWICE A DAY Discontinued losartan 50 mg tablet 50 mg PO DAILY [facility] - Within 1 Week Disposition Disposition (needs filled in before D/C Order can be placed): Home, Self Care Charges/Coding Visit Charges Inpatient E&M: 02704 Disch Hosp >30min 12/20/22 1129 <Electronically signed by Laura Li MD> Cosigner Signature (if applicable): CC: Dr. Laura Li MD; [facility]~ Signed [facility] Work Phone: 1(579) 368-444211-01-2023 Progress note Author Laura Li [facility] December 20, 2022 11:27am Note Date/Time December 20, 2022 8 :26am [facility] Medical Records Department [address] [place] [address] Progress Note - Hospitalist 12/20/22825 MR#: [id number] Acct: [id number] Name: MARION GUTIERREZ Rep #:[id number] : 1995 27 From: Laura Li MD PCP: [facility] atus:ADM IN Location: [place] [address] Reason for Visit Reason for Visit: Diagnoses Syncope and collapse (12/19/22) Subjective Subjective Patient seen blood pressure remains relatively stable plan is for patient to be discharged home Objective Data Objective Data Vital Signs: Vital Signs Temp Pulse Resp BP Pulse Ox O2 Del Method 97.6 F L 75 16 138/96 H 94 Room Air 12/20/22 06:46 12/20/22 06:46 12/20/22 06:46 12/20/22 06:46 12/20/22 06:46 12/20/22 06:46 Oxygen Delivery Method Room Air Weight: 129.1 kg Body Mass Index (BMI) 45.9 Intake & Output: Intake and Output for Last 24 Hours 12/18/22 12/19/22 12/20/22 23:59 23:59 23:59 Intake Total 1000 / 1000 1120 / 1120 1000 / 1000 Output Total 0 / 0 Balance 1000 / 1000 1120 / 1120 1000 / 1000 Lab / Micro Data 12/20/22 05:00 12/20/22 05:00 Labs: Laboratory Results - last 24 hr 12/20/22 05:00: WBC 6.4, RBC 3.98 L, Hgb 11.5 L, Hct 36.3 L, MCV 91.2, MCH 28.9,MCHC 31.7 L, RDW Std Deviation 44.9 H, RDW Coeff of Delmy 13.3, Plt Count 322, MPV9.1, Immature Gran % (Auto) 0.200, Neut % (Auto) 55.7, Lymph % (Auto) 34.0, Trigg% (Auto) 7.5, Eos % (Auto) 2.0, Baso % (Auto) 0.6, Absolute Neuts (auto) 3.6, Absolute Lymphs (auto) 2.18, Nucleated RBC % 0, Sodium 140, Potassium 3.6, Chloride 110 H, Carbon Dioxide 24.0, Anion Gap 6, BUN 12, Creatinine 0.60, EstimCreat Clear Calc 133.01, Est GFR (MDRD) Af Amer 155, Est GFR (MDRD) Non-Af 128, BUN/Creatinine Ratio 20.0, Glucose 109 H, Calcium 8.5, Magnesium 2.2 Radiography Diagnostic Testing: Radiology Impression Echocardiogram 12/19/22 05:55 Interpretation Summary Normal LV size. Left ventricular systolic function is normal. The estimated ejection fraction is 60 %. Contrast injection was performed. The study was technically limited. Ordering Physician: [place] Wisdom Referring Physician: [facility] Performed By: Kaur Kinsey RDCS, RVT Physical Exam Narrative GENERAL: cooperative HEENT: Atraumatic; normocephalic EYES; Anicteric, Normal Conjunctiva NECK; supple, normal thyroid, RESPIRATORY: Diminished to auscultation CARDIOVASCULAR: Regular S1 S2, GI: soft, normoactive bowel sounds, : No Renal angle tenderness; EXTREMITIES: No edema, no clubbing, MUSCULOSKELETAL: no muscle wasting NEURO: Awake; no lateralizing signs. SKIN: No Rash PSYCH; Flat affect Assessment & Plan Assessment/Plan (1) Syncope: QUALIFIERS: Encounter type: initial encounter PLAN: Plan Patient is a 27-year-old lady who presented with syncope and presyncope admittedto monitored bed for subsequent management 1. Syncope ? Suspected to secondary to orthostatic hypotension. Patient was found to have positive orthostasis. Work-up including echo and serial cardiac enzymes negative to date. Patient was on spironolactone and losartan on admission held. Resuscitated with IV fluids ? Random cortisol level came back within normal limits plan is for patient to bedischarged home with discontinuation of her antihypertensive 2. Essential hypertension ? Patient antihypertensives held in view of her positive orthostasis 3. Autism ? Supportive care 4. Bipolar disorder ? Patient is on Abilify and lithium continue 5. Polycystic ovarian disease ? Patient with spironolactone 6. Class III obesity with BMI of 45.9 ? Complicating care weight loss advised 7. DVT prophylaxis ? SC Lovenox Time spent in the patient's overall evaluation,decision-making process, review of diagnostic data, adjustment of management, discussion with other providers, nursing nursing and ancillary staff involved in patient's care documentation, 40 Minutes Charges/Coding Visit Charges Inpatient E&M: 26643 Subs Hosp L2 12/20/22 1127 <Electronically signed by Laura Li MD> Cosigner Signature (if applicable): CC: ~ Signed [facility] Work Phone: 1(666) 288-861310-31-2023 Progress note Author Laura Li [facility] December 19, 2022 2:11pm Note Date/Time December 19, 2022 1 1:20am [facility] Medical Records Department [address] [place] [address] Progress Note - Hospitalist 12/19/220 MR#: [id number] Acct: [id number] Name: MARION GUTIERREZ Rep #:[id number] : 1995 27 From: Laura Li MD PCP: [facility] St atus:ADM [facility] Location: [place] [address] Reason for Visit Reason for Visit: Diagnoses Syncope and collapse (12/18/22) Subjective Subjective Patient is a 27-year-old lady who presented with syncope and presyncope admittedto monitored bed for subsequent management Objective Data Objective Data Vital Signs: Vital Signs Temp Pulse Resp BP Pulse Ox O2 Del Method 97.9 F 86 12 115/83 H 100 Room Air 12/19/22 09:11 12/19/22 09:11 12/19/22 09:11 12/19/22 09:11 12/19/22 09:11 12/19/22 09:11 Oxygen Delivery Method Room Air Weight: 129.1 kg Body Mass Index (BMI) 45.9 Intake & Output: Intake and Output for Last 24 Hours 12/17/22 12/18/22 12/19/22 23:59 23:59 23:59 Intake Total 1000 / 1000 Balance 1000 / 1000 Lab / Micro Data 12/18/22 15:10 12/18/22 15:10 Labs: Laboratory Results - last 24 hr 12/18/22 15:10: WBC 11.2 H, RBC 4.50, Hgb 12.9, Hct 41.0, MCV 91.1, MCH 28.7, MCHC 31.5 L, RDW Std Deviation 46.5 H, RDW Coeff of Delmy 13.7, Plt Count 404, MPV9.0, Immature Gran % (Auto) 0.400, Neut % (Auto) 73.9 H, Lymph % (Auto) 18.1 L, Trigg % (Auto) 6.4, Eos % (Auto) 0.7, Baso % (Auto) 0.5, Absolute Neuts (auto) 8.3 H, Absolute Lymphs (auto) 2.03, Nucleated RBC % 0, D-Dimer Quant (PE/DVT) < 0.27 L, Sodium 140, Potassium 4.1, Chloride 108 H, Carbon Dioxide 29.0, Anion Gap 3 L, BUN 12, Creatinine 0.67, Est GFR (MDRD) Af Amer 137, Est GFR (MDRD) Non-Af 113, BUN/Creatinine Ratio 17.9, Glucose 107 H, Calcium 9.2, Troponin I High Sens 3 12/18/22 16:43: [place] 0.60 Radiography Diagnostic Testing: Radiology Impression Brain CT 12/18/22 14:38 IMPRESSION: Normal unenhanced CT scan of the brain. Electronically Signed: Dante Espitia MD at 15:40 EDT , Chest X-Ray 12/18/22 15:30 IMPRESSION: No acute abnormality is seen. Electronically Signed: Dante Espitia MD at 15:43 EDT , Echocardiogram 12/19/22 05:55 Interpretation Summary Normal LV size. Left ventricular systolic function is normal. The estimated ejection fraction is 60 %. Contrast injection was performed. The study was technically limited. Ordering Physician: [place] Wisdom Referring Physician: [facility] Performed By: Kaur Kinsey, CISCO, RVT Physical Exam Narrative GENERAL: cooperative HEENT: Atraumatic; normocephalic EYES; Anicteric, Normal Conjunctiva NECK; supple, normal thyroid, RESPIRATORY: Diminished to auscultation CARDIOVASCULAR: Regular S1 S2, GI: soft, normoactive bowel sounds, : No Renal angle tenderness; EXTREMITIES: No edema, no clubbing, MUSCULOSKELETAL: no muscle wasting NEURO: Awake; no lateralizing signs. SKIN: No Rash PSYCH; Flat affect Assessment & Plan Assessment/Plan (1) Syncope: QUALIFIERS: Encounter type: initial encounter PLAN: Plan Patient is a 27-year-old lady who presented with syncope and presyncope admittedto monitored bed for subsequent management 1. Syncope ? Suspected to secondary to orthostatic hypotension. Patient was found to have positive orthostasis. Work-up including echo and serial cardiac enzymes negative to date. Patient was on spironolactone and losartan on admission held. Resuscitated with IV fluids 2. Essential hypertension ? Patient antihypertensives held in view of her positive orthostasis 3. Autism ? Supportive care 4. Bipolar disorder ? Patient is on Abilify and lithium continue 5. Polycystic ovarian disease ? Patient with spironolactone 6. Class III obesity with BMI of 45.9 ? Complicating care weight loss advised 7. DVT prophylaxis ? SC Lovenox Time spent in the patient's overall evaluation,decision-making process, review of diagnostic data, adjustment of management, discussion with other providers, nursing nursing and ancillary staff involved in patient's care documentation, 40 Minutes Charges/Coding Visit Charges Inpatient E&M: 06146 Subs Hosp L2 12/19/22 1411 <Electronically signed by Laura Li MD> Cosigner Signature (if applicable): CC: ~ Signed [facility] Work Phone: 1(864) 968-199310-30-2023 History and physical note Author [place] Wisdom [facility] December 18, 2022 8:01pm Note Date/Time December 18, 2022 7 :56pm [facility] Medical Records Department [address] [place] [address] H&P Exam - Hospitalist 12/18/221945 MR#: [id number] Acct: [id number] Name: MARION GUTIERREZ Rep #:[id number] : 1995 27 From: [place] Wisdom DO PCP: [facility] atus:ADM [facility] Location: [place] [address] HPI - General General Date of Admission: 12/18/22 Date of Service: 12/18/22 Chief Complaint: Lightheadedness, syncope HPI Narrative MARION GUTIERREZ, is a 27 F who presents to the emergency room at [facility] with complaints of multiple episodes of syncope over the pastweek, patient states at least 12 episodes, she is a poor informant and cannot tell me when these episodes started exactly, she states that she usually does not pass out in a chair but gets lightheaded. Patient has a history of autism and bipolar disorder. Current medical problems include hypertension, polycysticovarian syndrome, and migraine cephalgia. I talked to her primary caregiver at [facility] today, she was placed on medication for polycystic ovarian syndrome but her blood sugar went too low and they had to take her off medication. Her serum insulin level was also low according to her primary caregiver at [facility]. The emergency room physician's assistant finance director told me today that the patient's caregiver at home does not witness any syncopal episodes but she has been dizzy. Patient tells me that a friend of hers has witnessed the syncope episodes. Work-up in ER included an EKG which showed normal sinus rhythm without ischemic changes, patient had a CT of the brain without contrast that was unremarkable, white blood cell count was slightly elevated 11.2, patient's CHEM panel was unremarkable. Patient's lithium level was therapeutic. Patient will be placed into observation status on PCU, she will be monitored on telemetry and will be seen by PT and OT, she will have an echocardiogram performed tomorrow. I am suspect that due to the patient's autism and bipolar disorder, I am not receiving a good narrative as to what is happening. [facility] Medical History (Updated 12/18/22 @ 19:31 by Trina Cole) Anxiety Arthritis Autism Back pain Bipolar 1 disorder Bipolar disorder Cirrhosis Depression Depression with anxiety Diabetes Dietary restriction Fatty liver GERD (gastroesophageal reflux disease) Heartburn History of echocardiogram IBS (irritable bowel syndrome) Irregular heart beat Kidney stones Migraine headache Migraines Non-smoker PCOS (polycystic ovarian syndrome) Syncope Wears glasses Home Medications lithium carbonate 300 mg capsule 300 mg PO BID 04/05/17 [History Last Taken 12/18/22] ferrous sulfate 325 mg (65 mg iron) tablet (FeroSul) 325 mg PO QODAY 01/24/22 [History Last Taken 12/16/22] lithium carbonate 600 mg capsule 600 mg PO QHS 01/24/22 [History Last Taken 12/17/22] losartan 50 mg tablet 50 mg PO DAILY 02/28/22 [History Last Taken 12/18/22] metoclopramide HCl 10 mg tablet (Reglan) 5 mg (1/2 x 10 mg) PO BID nausea and vomiting #28 tabs 06/21/22 [Rx Last Taken 12/18/22] pantoprazole 40 mg tablet,delayed release 40 mg PO DAILY 08/04/22 [History Last Taken 12/17/22] fremanezumab-vfrm 225 mg/1.5 mL subcutaneous auto-injector (Ajovy) 225 mg subcutQMONTH 10/03/22 [History Last Taken 11/21/22] budesonide 3 mg capsule,delayed,extended release 9 mg (3 x 3 mg) PO DAILY #90 ea10/10/22 [Rx Last Taken Unknown] famotidine 40 mg tablet 40 mg PO BID #60 tabs 10/31/22 [Rx Last Taken 12/18/22] spironolactone 50 mg tablet See Rx Instructions .Route .COMPLEX #60 TABLETS 11/01/22 [Rx Last Taken 12/18/22] aripiprazole lauroxil 441 mg/1.6 mL suspension, ext.rel. IM syringe (Aristada) 441 mg IM .COMPLEX 12/18/22 [History Last Taken 12/18/22] cholecalciferol (vitamin D3) 25 mcg (1,000 unit) tablet (Vitamin D3) 25 mcg PO DAILY 12/18/22 [History Last Taken 12/17/22] imipramine HCl 25 mg tablet 25 mg PO DAILY 12/18/22 [History Last Taken 12/17/22] Allergy/AdvReac Type Severity Reaction Status Date / Time metformin Allergy Mild Nausea/Vom/ Verified 12/18/22 19:33 Diarrhea pollen extracts Allergy Hives Verified 12/18/22 19:33 escitalopram [From Lexapro] AdvReac Other Verified 12/18/22 19:33 lactase [From Dairy Aid] AdvReac Upset Verified 12/18/22 19:33 Stomach ondansetron AdvReac Anaphylaxis Verified 12/18/22 19:33 [From Zofran (as hydrochloride)] Family History Mother Uterine cancer Other Asthma Depression Diabetes GERD (gastroesophageal reflux disease) Heart disease Hyperlipidemia Hypertension Surgical History H/O knee surgery H/O spinal fusion History of colonoscopy History of esophagogastroduodenoscopy (EGD) History of tonsillectomy and adenoidectomy Social History household members: none housing: apartment current occupational status: unemployed history of recent travel: No Smoking Status: Never smoker alcohol intake: current alcohol intake frequency: holidays/special occasions only substance use type: does not use what type of physical activity do you participate in: walking frequency: daily seatbelt use: always do you feel safe at home: Yes additional social history: single ROS ROS Narrative Due to the patient's psychiatric problems, a reliable review of systems was not able to be obtained Vital Signs Vital Signs Vital Signs: 12/18/22 12:28 12/18/22 14:30 12/18/22 17:00 Temperature 97.1 F L Temperature Source Temporal Pulse Rate 109 H Pulse Rate [Lying] 78 Pulse Rate [Sitting (for 1 minute prior to obtaining)] 90 Pulse Rate [Standing (for 1 minute prior to obtaining)] 111 H Respiratory Rate 16 Respiratory Effort Respiratory Pattern Blood Pressure 134/73 H Blood Pressure [Lying] 112/67 Blood Pressure [Sitting (for 1 minute prior to obtaining)] 130/80 H Blood Pressure [Standing (for 1 minute prior to obtaining)] 127/78 H Blood Pressure Mean 93 Blood Pressure Mean [Lying] 82 Blood Pressure Mean [Sitting (for 1 minute prior to obtaining)] 96 Blood Pressure Mean [Standing (for 1 minute prior to obtaining)] 94 Blood Pressure Source Blood Pressure Position Blood Pressure Location Pulse Ox 100 Oxygen Delivery Method Room Air Room Air 12/18/22 17:00 12/18/22 17:02 12/18/22 17:02 Temperature Temperature Source Pulse Rate 93 93 Pulse Rate [Lying] Pulse Rate [Sitting (for 1 minute prior to obtaining)] Pulse Rate [Standing (for 1 minute prior to obtaining)] Respiratory Rate 17 17 Respiratory Effort Normal Non-Labored Respiratory Pattern Normal Blood Pressure 130/88 H 130/89 H Blood Pressure [Lying] Blood Pressure [Sitting (for 1 minute prior to obtaining)] Blood Pressure [Standing (for 1 minute prior to obtaining)] Blood Pressure Mean 102 102 Blood Pressure Mean [Lying] Blood Pressure Mean [Sitting (for 1 minute prior to obtaining)] Blood Pressure Mean [Standing (for 1 minute prior to obtaining)] Blood Pressure Source Blood Pressure Position Blood Pressure Location Pulse Ox 99 99 Oxygen Delivery Method Room Air 12/18/22 19:33 Temperature 98.3 F Temperature Source Oral Pulse Rate 100 Pulse Rate [Lying] Pulse Rate [Sitting (for 1 minute prior to obtaining)] Pulse Rate [Standing (for 1 minute prior to obtaining)] Respiratory Rate 18 Respiratory Effort Respiratory Pattern Blood Pressure 124/62 H Blood Pressure [Lying] Blood Pressure [Sitting (for 1 minute prior to obtaining)] Blood Pressure [Standing (for 1 minute prior to obtaining)] Blood Pressure Mean 82 Blood Pressure Mean [Lying] Blood Pressure Mean [Sitting (for 1 minute prior to obtaining)] Blood Pressure Mean [Standing (for 1 minute prior to obtaining)] Blood Pressure Source Monitor Blood Pressure Position Semi-Fowlers Blood Pressure Location Left Arm Pulse Ox 100 Oxygen Delivery Method Room Air Weight Weight: 129.1 kg Body Mass Index (BMI) 45.9 Physical Exam Const alert and no apparent distress Constitutional Narrative: Patient is morbidly obese General Appearance: cooperative, well kempt and well developed Orientation / Consciousness: awake, oriented to person and oriented to place HEENT normocephalic, head/scalp atraumatic, hearing grossly normal bilaterally and moist oral mucous membranes Eyes PERRL, EOMs intact bilaterally and conjunctivae normal Neck supple, no JVD, thyroid normal and no carotid bruits General: trachea midline Resp normal respiratory effort, no retractions, no use of accessory muscles and clearto auscultation bilaterally Auscultation: Negative for rales, rhonchi or wheezes Cardio regular rate, regular rhythm, S1 normal heart sound, S2 normal heart sound, no murmurs, no rub and no gallops GI normal to inspection, nondistended, normoactive bowel sounds, soft to palpation,non-tender and non-distended Extremity no clubbing, cyanosis or edema Skin Skin Narrative: There is an eschar noted over the patient's anterior left upper breast, this eschar is approximately 2 to 3 cm in diameter by 3 cm in diameter, there is no purulent drainage noted from the area, there is also a small break in the skin below this area that is approximately half a centimeter in diameter, this area appears to be open but there does not appear to be any drainage from the area Neuro CN's II-XII intact bilaterally, moves all extremities, no focal motor deficits and no sensory deficits noted Sensorium / Orientation: awake, alert, oriented to person and oriented to place Speech: speech normal Psych affect normal Results Lab / Micro Data 12/18/22 15:10 12/18/22 15:10 Labs: Laboratory Results - last 24 hr 12/18/22 15:10: WBC 11.2 H, RBC 4.50, Hgb 12.9, Hct 41.0, MCV 91.1, MCH 28.7, MCHC 31.5 L, RDW Std Deviation 46.5 H, RDW Coeff of Delmy 13.7, Plt Count 404, MPV9.0, Immature Gran % (Auto) 0.400, Neut % (Auto) 73.9 H, Lymph % (Auto) 18.1 L, Trigg % (Auto) 6.4, Eos % (Auto) 0.7, Baso % (Auto) 0.5, Absolute Neuts (auto) 8.3 H, Absolute Lymphs (auto) 2.03, Nucleated RBC % 0, D-Dimer Quant (PE/DVT) < 0.27 L, Sodium 140, Potassium 4.1, Chloride 108 H, Carbon Dioxide 29.0, Anion Gap 3 L, BUN 12, Creatinine 0.67, Est GFR (MDRD) Af Amer 137, Est GFR (MDRD) Non-Af 113, BUN/Creatinine Ratio 17.9, Glucose 107 H, Calcium 9.2, Troponin I High Sens 3 12/18/22 16:43: [place] 0.[address] 12/18/22 14:38 IMPRESSION: Normal unenhanced CT scan of the brain. Electronically Signed: Dante Espitia MD at 15:40 EDT , Chest X-Ray 12/18/22 15:30 IMPRESSION: No acute abnormality is seen. Electronically Signed: Dante Espitia MD at 15:43 EDT , Assessment & Plan Assessment/Plan (1) Syncope: PLAN: Plan 1. Syncope and presyncope-Per patient-etiology unclear, again patient's narrative may be suspect, patient was placed in observation status on PCU, she will be monitored with telemetry, echocardiogram will be performed tomorrow, shewill be seen by PT and OT #2 essential hypertension-patient's blood pressure medication will be held at the present time-blood pressure will be monitored #3 superficial skin trauma to the left upper breast area-I do not feel that thisarea is infected I do not think the patient needs to be on antibiotics. #4 chronic migraines-patient is on a once a month injection for migraines #5 bipolar disorder/autism-patient appears to be on Depo Abilify, she will remain on lithium at this time #6 polycystic ovarian syndrome-patient is on spironolactone, I have elected to hold this at this time Patient is on Reglan at this time, I have elected not to continue his medication Total clinical time spent addressing the patient's medical issues, reviewing allof her data, and collaborating with patient's care team: 40 minutes Charges/Coding Visit Charges Inpatient E&M: 10376 Init Hosp L1 12/18/222000 <Electronically signed by Montana Wisdom DO> Cosigner Signature (if applicable): CC: Dr. Montana Wisdom, DO; [facility]~ Signed [facility] Work Phone: 1(708) 671-416310-30-2023 Discharge summary Author Sarah Purdy [facility] December 18, 2022 6:00pm Note Date/Time December 18, 2022 2 :38pm [facility] Medical Records Department [address] [place] [address] Emergency Department Summary 12/18/22 MR#: [id number] Acct: [id number] Name: MARION GUTIERREZ Rep #:[id number] : 1995 27 From: Presley BAZAN PCP: [facility] St atus:ADM GARRET Location: [place] [address] <Statement entered by Sarah Purdy MD - 12/18/22 18:00> I have personally performed a face to face assessment of the patient and have reviewed the SHARON Note. Patient presents with frequent dizzy episodes and syncope. Patient states that she has had lightheaded and dizzy episodes for the last several days and since Sunday has had multiple episodes of syncope. She states she will feel like her heart starts to race. She will wake up on the floor with a headache. She is here with a manager hair who has seen her have some dizzy episodes but has not witnessed any syncopal episodes. Patient sitting upright in bed no acute distress. Head and neck examination unremarkable with no external sign of trauma. Heart is regular rate and rhythm. Lung sounds are clear. Chest wall examination reveals multiple scabbed wounds over her chest. There isone particular lesion on the left breast with surrounding erythema concerning for cellulitis. Abdomen is soft nontender. Neuro exam reveals no focal neurologic deficits. Lab work is unremarkable. Orthostatic vital signs are negative, however patientstates she did feel dizzy when she stood up. She is given IV fluids here. Withpatient having multiple syncopal episodes and having palpitations I did recommend observation overnight. Case discussed with hospitalist. HPI History of Present Illness Chief Complaint: Syncope Narrative Narrative: Patient is a 27-year-old female with history of morbid obesity, autism, bipolar,diabetes, hyperlipidemia presents the emergency department with ongoing dizziness, near syncopal/syncopal episodes. Patient was seen here December 09, 2022 for the same. At that time, patient nausea vomiting diarrhea. Patient states that she is continue to have dizzy spells as well as having episodes of syncope. She denies any injury. She complains of intermittent headache. She denies any chest pain or shortness of breath. Denies any recent surgeries, denies any history of blood clots in the legs or lungs. [facility] Medical History Anxiety Arthritis Autism Back pain Bipolar 1 disorder Bipolar disorder Depression with anxiety Dietary restriction Fatty liver Heartburn History of echocardiogram IBS (irritable bowel syndrome) Migraine headache Migraines Non-smoker PCOS (polycystic ovarian syndrome) Syncope Wears glasses Home Medications lithium carbonate 300 mg capsule 300 mg PO BID 04/05/17 [History Last Taken 12/18/22] ferrous sulfate 325 mg (65 mg iron) tablet (FeroSul) 325 mg PO QODAY 01/24/22 [History Last Taken 12/16/22] lithium carbonate 600 mg capsule 600 mg PO QHS 01/24/22 [History Last Taken 12/17/22] losartan 50 mg tablet 50 mg PO DAILY 02/28/22 [History Last Taken 12/18/22] metoclopramide HCl 10 mg tablet (Reglan) 5 mg (1/2 x 10 mg) PO BID nausea and vomiting #28 tabs 06/21/22 [Rx Last Taken 12/18/22] pantoprazole 40 mg tablet,delayed release 40 mg PO DAILY 08/04/22 [History Last Taken 12/17/22] fremanezumab-vfrm 225 mg/1.5 mL subcutaneous auto-injector (Ajovy) 225 mg subcutQMONTH 10/03/22 [History Last Taken 11/21/22] budesonide 3 mg capsule,delayed,extended release 9 mg (3 x 3 mg) PO DAILY #90 ea10/10/22 [Rx Last Taken Unknown] famotidine 40 mg tablet 40 mg PO BID #60 tabs 10/31/22 [Rx Last Taken 12/18/22] spironolactone 50 mg tablet See Rx Instructions .Route .COMPLEX #60 TABLETS 11/01/22 [Rx Last Taken 12/18/22] aripiprazole lauroxil 441 mg/1.6 mL suspension, ext.rel. IM syringe (Aristada) 441 mg IM .COMPLEX 12/18/22 [History Last Taken 12/18/22] cholecalciferol (vitamin D3) 25 mcg (1,000 unit) tablet (Vitamin D3) 25 mcg PO DAILY 12/18/22 [History Last Taken 12/17/22] imipramine HCl 25 mg tablet 25 mg PO DAILY 12/18/22 [History Last Taken 12/17/22] Allergy/AdvReac Type Severity Reaction Status Date / Time metformin Allergy Mild Nausea/Vom/ Verified 12/18/22 12:29 Diarrhea pollen extracts Allergy Hives Verified 12/18/22 12:29 escitalopram [From Lexapro] AdvReac Other Verified 12/18/22 12:29 lactase [From Dairy Aid] AdvReac Upset Verified 12/18/22 12:29 Stomach ondansetron AdvReac Anaphylaxis Verified 12/18/22 12:29 [From Zofran (as hydrochloride)] Family History Mother Uterine cancer Other Asthma Depression Diabetes GERD (gastroesophageal reflux disease) Heart disease Hyperlipidemia Hypertension Surgical History H/O knee surgery H/O spinal fusion History of colonoscopy History of esophagogastroduodenoscopy (EGD) History of tonsillectomy and adenoidectomy Social History household members: none housing: apartment current occupational status: unemployed history of recent travel: No Smoking Status: Never smoker alcohol intake: current alcohol intake frequency: holidays/special occasions only substance use type: does not use what type of physical activity do you participate in: walking frequency: daily seatbelt use: always do you feel safe at home: Yes additional social history: single ROS ROS ED ROS Narrative Constitutional: Negative for fever, chills, weight loss, weakness Eyes: Negative for vision loss, vision change, double vision ENT: Negative for any sore throat, ear pain, congestion Cardiovascular: Negative for any chest pain, tightness, palpitations Respiratory: Negative for any cough, sputum production, hemoptysis, dyspnea, dyspnea on exertion, orthopnea Gastrointestinal: Negative for any abdominal pain, nausea, vomiting, diarrhea, constipation, blood in stool, blood in vomit : Negative for any urinary frequency, dysuria, retention, blood in urine Muscle skeletal: Negative for any muscle joint pain, stiffness, myalgias, arthralgias, neck pain, back pain Neurological: Negative for any numbness or tingling. Positive for headache, dizziness, and syncopal episodes Skin: Negative for any rashes, lumps, itching, abrasions, lacerations Psychiatric: Negative for any depression, anxiety, stress, suicidal ideation, homicidal ideation Hematologic: Negative for any easy bruising, excessive bruising, easy bleeding Allergies: Negative for any eczema, hives, rash EXAM Physical Exam Narrative Exam Narrative: Vital signs reviewed. Patient is alert and orient x4. Patient is no obvious distress. HEET: Head normocephalic atraumatic, TMs clear bilaterally. Posterior pharynx is clear, moist mucous membranes. Nares clear bilaterally. Neck: Supple with no lymphadenopathy or tenderness. No signs of meningismus, negative jolt sign. Cardiac: Regular rate and rhythm no murmurs gallops or rubs, equal peripheral pulses bilaterally. Respiratory: Lungs clear to auscultation bilaterally. No chest tenderness. Patient does have areas of cellulitis with superficial lesions from what appearsto be itching to her left upper chest. Is consistent with cellulitis. Abdomen: Soft, nontender, nondistended. No abdominal bruit or pulsatile masses. No hepatosplenomegaly Extremities: No peripheral edema, no signs of gross trauma or deformity. Activefull range of motion of all extremities. Neuro: Cranial nerves II through XII intact, no focal neurological deficits. NIH stroke score 0. Skin: Clean dry and intact with no rash, purpura, petechiae, vesicles or pustules. Backs/flank: No CVA tenderness, no midline spinal tenderness, no deformity. Psych: Normal mood and affect. No SI, HI or acute psychosis. Const Vital Signs: 12/18/22 12:28 12/18/22 14:30 Temperature 97.1 F L Temperature Source Temporal Pulse Rate 109 H Pulse Rate [Lying] 78 Pulse Rate [Sitting (for 1 minute prior to obtaining)] 90 Pulse Rate [Standing (for 1 minute prior to obtaining)] 111 H Respiratory Rate 16 Blood Pressure 134/73 H Blood Pressure [Lying] 112/67 Blood Pressure [Sitting (for 1 minute prior to obtaining)] 130/80 H Blood Pressure [Standing (for 1 minute prior to obtaining)] 127/78 H Blood Pressure Mean 93 Blood Pressure Mean [Lying] 82 Blood Pressure Mean [Sitting (for 1 minute prior to obtaining)] 96 Blood Pressure Mean [Standing (for 1 minute prior to obtaining)] 94 Pulse Ox 100 Oxygen Delivery Method Room Air Positive obese Nutritional Appearance: obese MDM MDM Lab Data Labs: Laboratory Results - last 24 hr 12/18/22 15:10 WBC 11.2 H RBC 4.50 Hgb 12.9 Hct 41.0 MCV 91.1 MCH 28.7 MCHC 31.5 L RDW Std Deviation 46.5 H RDW Coeff of Delmy 13.7 Plt Count 404 MPV 9.0 Immature Gran % (Auto) 0.400 Neut % (Auto) 73.9 H Lymph % (Auto) 18.1 L Trigg % (Auto) 6.4 Eos % (Auto) 0.7 Baso % (Auto) 0.5 Absolute Neuts (auto) 8.3 H Absolute Lymphs (auto) 2.03 Nucleated RBC % 0 D-Dimer Quant (PE/DVT) < 0.27 L Sodium 140 Potassium 4.1 Chloride 108 H Carbon Dioxide 29.0 Anion Gap 3 L BUN 12 Creatinine 0.67 Est GFR (MDRD) Af Amer 137 Est GFR (MDRD) Non-Af 113 BUN/Creatinine Ratio 17.9 Glucose 107 H Calcium 9.2 Troponin I High Sens 3 Radiography Diagnostic Testing: Clinical Impression(s) from Imaging Studies Brain CT 12/18/22 14:38 IMPRESSION: Normal unenhanced CT scan of the brain. Electronically Signed: Dante Espitia MD at 15:40 EDT , Chest X-Ray 12/18/22 15:30 IMPRESSION: No acute abnormality is seen. Electronically Signed: Dante Espitia MD at 15:43 EDT , EKG Normal sinus rhythm, rate of 89 beats per: Attestation: I personally reviewed and interpreted this EKG as follows: Interpretation: Sinus Rhythm Comments: Normal sinus rhythm, rate of 89 bpm, AK 164 ms, QRS duration 80 ms, no acute ST elevation, no acute infarct noted Treatment and Re-Evaluation :: Patient is no obvious distress, vital signs are stable, patient looks nontoxic. Presenting to the emergency department for complaints of ongoing dizziness, syncopal, near syncopal episodes. Differential diagnosis includes hypovolemia, migraine headache, cardiac arrhythmia. Patient will receive orthostatic vital signs, this is prior to receiving 1 L normal saline. Patient received basic laboratory values including a cardiac work-up. EKG. Patient will also receive a CT scan of the brain. I will perform a D-dimer concerning for any elevation concerning for blood clot. Patient CT scan of the brain was unremarkable, chest x-ray was unremarkable. Patient's laboratory values showed a slight leukocytosis white blood count 11.2. Patient's chemistries were unremarkable, D-dimer was negative. Upon further investigation of the patient's skin, patient does have some cellulitic area to the left chest. Patient was started on oral Keflex here. She shows no signs ofdeep tissue infection, septicemia. Secondary to the unexplained syncope, patient will need to be brought into the hospital under observation. I spoke with the hospitalist, patient will be admitted. Discharge Plan Triage Chief Complaint: Syncope ED Midlevel Provider: Presley Ibarra ED Provider: Sarah Purdy Dx/Rx/DC Orders Clinical Impression: Cellulitis, Syncope Prescriptions: No Action Ajovy Autoinjector 225 mg/1.5 mL auto-injector 225 mg subcut QMONTH Patient Comments: PT STATES USES BETWEEN FIRST AND FIFTH OF EACH MONTH losartan 50 mg tablet 50 mg PO DAILY lithium carbonate 300 MG capsule 300 mg PO BID lithium carbonate 600 mg Capsule 600 mg PO QHS ferrous sulfate [FeroSul] 325 mg (65 mg iron) tablet 325 mg PO QODAY pantoprazole 40 mg Tablet,Delayed Release (Dr/Ec) 40 mg PO DAILY imipramine HCl 25 mg tablet 25 mg PO DAILY cholecalciferol (vitamin D3) [Vitamin D3] 25 mcg (1,000 unit) tablet 25 mcg PO DAILY Aristada 441 mg/1.6 mL suspension,extended rel syring 441 mg IM .COMPLEX Rx Instructions: 441 mg intramuscularly Q28D; metoclopramide HCl [Reglan] 10 mg tablet 5 mg PO BID Qty: 28 11RF budesonide 3 mg capsule,delayed,extend.release 9 mg PO DAILY Qty: 90 2RF Patient Comments: PT STATES SHE IS UNSURE IF SHE IS STILL TAKING THIS MED famotidine 40 mg tablet 40 mg PO BID Qty: 60 2RF spironolactone 50 mg tablet See Rx Instructions .ROUTE .COMPLEX Qty: 60 6RF Dose Instruction: TAKE 1 TABLET BY MOUTH TWICE A DAY Rx Instructions: TAKE 1 TABLET BY MOUTH TWICE A DAY [facility] Referrals: [facility] [Primary Care Provider] - Disposition Disposition: Acute Care Hospital [facility] What to do if you have Problems For any increased pain, shortness of breath, bleeding, nausea or vomiting, chestpain, or any unexpected problems, contact your Primary Care Provider. Call [facility] ([phone]) or report to the closest Emergency Room. Call 911 if necessary. 12/18/22 1649 <Electronically signed by Presley BAZAN> Cosigner Signature (if applicable): 12/18/22 1800 <Electronically signed by Sarah Purdy MD> CC: [facility] ~ Signed [facility] Work Phone: 1(488) 202-823610-21-2023 Discharge summary [facility] December 09, 2022 9:52pm Note Date/Time December 09, 2022 8 :06pm [facility] Medical Records Department [address] [place] [id number] Emergency Department Summary 12/09/22 MR#: [id number] Acct: [id number] Name: MARION GUTIERREZ Rep #:[id number] : 1995 27 From: Rodolfo Das MD PCP: [facility] St atus:REG ER Location: ED HPI History of Present Illness Chief Complaint: Nausea/Vomiting/Diarrhea Narrative Narrative: 27-year-old female past medical history of hypertension, on losartan, bipolar disorder, and autism presents with her mother because of syncopal episodes that she is having in during the week. She states that they happen 2-3 times a day. Additionally, last evening she developed nausea, and today developed nausea, vomiting, and diarrhea. She states she had 8 episodes of diarrhea and at least 12 episodes of vomiting. Both were nonbloody. She states that her blood pressure has been all over the place. Sometimes it is high, and sometimes it is low. She denies any abdominal pain but just states that she is nauseated. Mother states that she complained of headaches as well. [facility] Medical History Anxiety Arthritis Autism Back pain Bipolar 1 disorder Bipolar disorder Depression with anxiety Dietary restriction Fatty liver Heartburn History of echocardiogram IBS (irritable bowel syndrome) Migraine headache Migraines Non-smoker PCOS (polycystic ovarian syndrome) Syncope Wears glasses Home Medications lithium carbonate 300 mg capsule 300 mg PO DAILY 04/05/17 [History Last Taken Unknown] ferrous sulfate 325 mg (65 mg iron) tablet (FeroSul) 325 mg PO QODAY 01/24/22 [History Last Taken Unknown] lithium carbonate 600 mg capsule 600 mg PO QHS 01/24/22 [History Last Taken Unknown] losartan 50 mg tablet 50 mg PO DAILY 02/28/22 [History Last Taken Unknown] metoclopramide HCl 10 mg tablet (Reglan) 5 mg (1/2 x 10 mg) PO BID nausea and vomiting #28 tabs 06/21/22 [Rx Last Taken Unknown] pantoprazole 40 mg tablet,delayed release 40 mg PO DAILY 08/04/22 [History Last Taken Unknown] fremanezumab-vfrm 225 mg/1.5 mL subcutaneous auto-injector (Ajovy) 225 mg subcutQMONTH 10/03/22 [History Last Taken Unknown] hydrocortisone 1 % topical cream 1 applic topical TID PRN itching #28.4 grams 10/03/22 [Rx Last Taken Unknown] medroxyprogesterone 10 mg tablet 10 mg PO QDAY 10 days #10 tabs 10/03/22 [Rx Last Taken Unknown] budesonide 3 mg capsule,delayed,extended release 9 mg (3 x 3 mg) PO DAILY #90 ea10/10/22 [Rx Last Taken Unknown] famotidine 40 mg tablet 40 mg PO BID #60 tabs 10/31/22 [Rx Last Taken Unknown] spironolactone 50 mg tablet See Rx Instructions .Route .COMPLEX #60 TABLETS 11/01/22 [Rx Last Taken Unknown] Allergy/AdvReac Type Severity Reaction Status Date / Time metformin Allergy Mild Nausea/Vom/ Verified 12/09/22 19:35 Diarrhea pollen extracts Allergy Hives Verified 12/09/22 19:35 escitalopram [From Lexapro] AdvReac Other Verified 12/09/22 19:35 lactase [From Dairy Aid] AdvReac Upset Verified 12/09/22 19:35 Stomach ondansetron AdvReac Anaphylaxis Verified 12/09/22 19:35 [From Zofran (as hydrochloride)] Family History Mother Uterine cancer Other Asthma Depression Diabetes GERD (gastroesophageal reflux disease) Heart disease Hyperlipidemia Hypertension Surgical History H/O knee surgery H/O spinal fusion History of colonoscopy History of esophagogastroduodenoscopy (EGD) History of tonsillectomy and adenoidectomy Social History household members: none housing: apartment current occupational status: unemployed history of recent travel: No Smoking Status: Never smoker alcohol intake: current alcohol intake frequency: holidays/special occasions only substance use type: does not use what type of physical activity do you participate in: walking frequency: daily seatbelt use: always do you feel safe at home: Yes additional social history: single ROS ROS ED ROS Narrative Constitutional: Reported fever, no chills. HEENT: No sore throat. No neck pain. No loss of vision. No rhinorrhea. Cardiovascular: No chest pain. No palpitations. No pedal edema. Respiratory: No cough, no shortness of breath. Abdominal: No abdominal pain. Positive nausea, 8 episodes of diarrhea, at least12 episodes of vomiting, nonbloody. Genitourinary: No dysuria. No hematuria. Musculoskeletal: No myalgias. No arthralgias. Neurologic: Positive headaches. No dizziness. No lightheadedness. Reported syncopal episodes throughout the last week. Skin: No rash. No change in color. Psychiatric: No depression. No anxiety. EXAM Physical Exam Narrative Exam Narrative: Afebrile. Vital signs noted. HEENT: Normocephalic. Atraumatic. PERRL, EOMI. Neck soft and supple. No pointtenderness or step off. Cardiovascular: Regular rate and rhythm. No murmurs, rubs, or gallops appreciated. Respiratory: No tachypnea. Lungs clear to auscultation bilaterally. Gastrointestinal: Abdomen soft, nontender, with normoactive bowel sounds. No rebound or guarding. Neurological: Awake. Alert. Nonfocal, nonlateralizing. Skin: No rash. Normal color. No pallor. Musculoskeletal: No pedal edema. Full range of motion extremities. Const Vital Signs: 12/09/22 19:31 12/09/22 20:10 Temperature 97.6 F L 97.8 F Temperature Source Temporal Oral Pulse Rate 98 Respiratory Rate 15 Blood Pressure 130/78 H Blood Pressure Mean 95 Pulse Ox 100 Oxygen Delivery Method Room Air MDM MDM MDM Narrative Medical decision making narrative: The differential diagnosis would be intravascular volume depletion versus transient hypotension versus dehydration. I do feel she probably has more of a gastroenteritis. I do not feel CT imaging is currently indicated as her abdomenis nontender. I will check her labs for dehydration. She was bolused normal saline 1 L intravenously. I will review her prior records, as she has been seenfor nausea, vomiting, and diarrhea in the past. She has an allergy to ondansetron so she was given Reglan 5 mg intravenously for symptomatic treatment. I will also check a lipase and a to see why she has had multiple episodes of nausea and vomiting. I reviewed the patient's laboratory work and she has a normal white count of 10.5, hemoglobin normal at 13.4, hematocrit normal at 41.9, platelet count 386. Review of her CMP shows no evidence of dehydration with a normal sodium of 138, potassium normal at 4.3, glucose is appropriately elevated at 91 with an anion gap low at 4. BUN is normal at 13 and creatinine 0.69. LFTs are grossly unremarkable. Serum is negative. Lipase is normal at 50. I have no concern for pancreatitis with negative laboratory work. Urinalysis is negative for ketones, and although she has WBCs 5-10, she is negative for nitrites. I donot feel that antibiotics are indicated and will defer treatment as she is not having dysuria or hematuria. Urine culture will be sent. EKG was also obtainedwhich was interpreted by myself as normal sinus rhythm at 81 bpm without ectopy or acute ST changes. No STEMI. No significant change from EKG dated January 15, 2022. At this point in time, I do not feel IV fluids are indicated. She was given a dose of Reglan and now feels sleepy. There has been no vomiting here in the ED. I do feel that she may have more of a gastroenteritis. As far as her reported syncope is concerned, I do not feel that further work-up is indicated and I do not feel she requires observation. I feel she be discharged to follow-up with her primary care provider. Return instructions to the emergency department were reviewed. She states that she has Reglan at home. Disposition is discharged home in stable condition. History & Record Review Discussion w/independent historian: Patient and Family Additional record(s) reviewed:: Prior ED visit Lab Data Attestation: I reviewed the patient's lab results. Labs: Laboratory Results - last 24 hr 12/09/22 12/09/22 20:08 20:17 WBC 10.5 RBC 4.66 Hgb 13.4 Hct 41.9 MCV 89.9 MCH 28.8 MCHC 32.0 RDW Std Deviation 45.8 H RDW Coeff of Delmy 13.9 Plt Count 386 MPV 8.9 Immature Gran % (Auto) 0.300 Neut % (Auto) 71.2 H Lymph % (Auto) 20.4 Trigg % (Auto) 6.9 Eos % (Auto) 0.7 Baso % (Auto) 0.5 Absolute Neuts (auto) 7.5 Absolute Lymphs (auto) 2.14 Nucleated RBC % 0 Sodium 138 Potassium 4.3 Chloride 106 Carbon Dioxide 28.0 Anion Gap 4 L BUN 13 Creatinine 0.69 Estim Creat Clear Calc 120.15 Est GFR (MDRD) Af Amer 132 Est GFR (MDRD) Non-Af 109 BUN/Creatinine Ratio 18.9 Glucose 91 Calcium 9.2 Total Bilirubin 0.70 AST 20 ALT 52 Alkaline Phosphatase 69 Total Protein 7.6 Albumin 3.6 Globulin 4.0 Albumin/Globulin Ratio 0.9 Lipase 50 Serum , Qual NEGATIVE Urine Color Yellow Urine Clarity Sl. Cloudy Urine pH 6.0 Ur Specific [place] 1.025 Urine Protein 30 H Urine Glucose (UA) Normal Urine Ketones 5 H Urine Occult Blood 10 H Urine Nitrite Negative Urine Bilirubin Negative Urine Urobilinogen Normal Ur Leukocyte Esterase 500 H Urine RBC 0 SEEN Urine WBC 5-10 SEEN Ur Squamous Epith Cells 0 SEEN Urine Bacteria 1+ Urine Mucus 0 SEEN Discharge Plan Triage Chief Complaint: Nausea/Vomiting/Diarrhea ED Provider: Rodolfo Das Dx/Rx/DC Orders Clinical Impression: Nausea vomiting and diarrhea, Syncope Instructions: ED Fainting, Uncertain Cause, ED Vomiting and Diarrhea ... Prescriptions: No Action Ajovy Autoinjector 225 mg/1.5 mL auto-injector 225 mg subcut QMONTH medroxyprogesterone 10 mg tablet 10 mg PO QDAY 10 Days Qty: 10 2RF Rx Instructions: Take daily X 10 days to induce menses. Repeat every 3 months if no spontaneous menses hydrocortisone 1 % cream 1 applic topical TID PRN (Reason: itching) Qty: 28.4 1RF losartan 50 mg tablet 50 mg PO DAILY lithium carbonate 300 MG capsule 300 mg PO DAILY lithium carbonate 600 mg Capsule 600 mg PO QHS ferrous sulfate [FeroSul] 325 mg (65 mg iron) tablet 325 mg PO QODAY pantoprazole 40 mg Tablet,Delayed Release (Dr/Ec) 40 mg PO DAILY metoclopramide HCl [Reglan] 10 mg tablet 5 mg PO BID Qty: 28 11RF budesonide 3 mg capsule,delayed,extend.release 9 mg PO DAILY Qty: 90 2RF famotidine 40 mg tablet 40 mg PO BID Qty: 60 2RF spironolactone 50 mg tablet See Rx Instructions .ROUTE .COMPLEX Qty: 60 6RF Dose Instruction: TAKE 1 TABLET BY MOUTH TWICE A DAY Rx Instructions: TAKE 1 TABLET BY MOUTH TWICE A DAY Primary Care Provider: [facility] Referrals: [facility] [Primary Care Provider] - 3-5 Days if not improving Activity Restrictions/Additional Instructions: Continue your Reglan as needed. Small amounts of water to keep yourself hydrated. Disposition Disposition: Home, Self Care What to do if you have Problems For any increased pain, shortness of breath, bleeding, nausea or vomiting, chestpain, or any unexpected problems, contact your Primary Care Provider. Call [facility] ([phone]) or report to the closest Emergency Room. Call 911 if necessary. 12/09/22 3571 <Electronically signed by Rodolfo Das MD> Sivaignmilan Signature (if applicable): CC: [facility] ~ Signed [facility] Work Phone: 1(964) 890-866108-15-2023 NotePap Smear Specimen AdequacyAugust 2022 10:31amComment.Satisfactory for evaluation. No endocervical component is identified.[facility] A#[id number] HospitalCom[facility] on above:Satisfactory for evaluation. No endocervical component is identified. 10-03-2022 NotePap Smear Specimen AdequacyAugust 2022 10:31amComment. Satisfactory for evaluation. No endocervical component is identified.[facility] A#[id number] HospitalComment on above:Satisfactory for evaluation. No endocervical component is identified.10-03-2022 NotePap Smear Specimen AdequacyAugust 2022 10:31amComment.Satisfactory for evaluation. No endocervical component is identified.[facility] A#[id number] HospitalComment on above:Satisfactory for evaluation. No endocervical component is identified.10-03-2022 NotePap Smear Specimen AdequacyAugust 2022 10:31amComment.Satisfactory for evaluation. No endocervical component is identified.[facility] A#[id number] HospitalComkresge eye institute on above:Satisfactory for evaluation. No endocervical component is identified. 10-03-2022 NotePap Smear Specimen AdequacyAugust 2022 10:31amComment. Satisfactory for evaluation. No endocervical component is identified.[facility] A#[id number] HospitalComk[facility] on above:Satisfactory for evaluation. No endocervical component is identified.10-03-2022 NotePap Smear Specimen AdequacyAugust 2022 10:31amComment.Satisfactory for evaluation. No endocervical component is identified.[facility] A#[id number] [facility] on above:Satisfactory for evaluation. No endocervical component is identified.08-15-[address] Etienne [facility] August 15, 2022 10:11pm Note Date/Time August 15, 2022 8:19 pm [facility] Medical Records Department [address] [place] [address] Emergency Department Summary 08/15/22 MR#: [id number] Acct: [id number] Name: MARION GUTIERREZ Rep #:[id number] : 1995 26 From: David Etienne DO PCP: [facility] atus:REG ER Location: ED HPI HPI - GI History of Present Illness Chief Complaint: Abd Pain Narrative Narrative: 26-year-old female with history of IBS-D, gastroparesis, morbid obesity, bipolardisorder presenting with nausea, vomiting, diarrhea. She states been going on since she had her endoscopy, Dr. Oliva a week ago. She states called the office and was put on antiemetics and antidiarrheals but every time she eats something she has diarrhea. She cannot hold down fluids. She has abdominal cramping but no outright pain. No urinary complaints. No fevers or chills. PFSH PFSH Medical History Anxiety Arthritis Autism Back pain Bipolar 1 disorder Bipolar disorder Depression with anxiety Dietary restriction Fatty liver Heartburn History of echocardiogram IBS (irritable bowel syndrome) Migraine headache Migraines Non-smoker PCOS (polycystic ovarian syndrome) Syncope Wears glasses Home Medications aripiprazole 15 mg tablet (Abilify) 7.5 mg PO DAILY 04/05/17 [History Last Taken Unknown] lithium carbonate 300 mg capsule 300 mg PO DAILY 04/05/17 [History Last Taken Unknown] amitriptyline 25 mg tablet 25 mg PO QHS 01/24/22 [History Last Taken Unknown] ferrous sulfate 325 mg (65 mg iron) tablet (FeroSul) 325 mg PO QODAY 01/24/22 [History Last Taken Unknown] hydroxyzine pamoate 25 mg capsule 25 mg PO TID 01/24/22 [History Last Taken Unknown] lithium carbonate 600 mg capsule 600 mg PO QHS 01/24/22 [History Last Taken Unknown] losartan 50 mg tablet 50 mg PO DAILY 02/28/22 [History Last Taken Unknown] metoclopramide HCl 10 mg tablet (Reglan) 5 mg PO BID nausea and vomiting #28 tabs 06/21/22 [Rx Last Taken Unknown] pantoprazole 40 mg tablet,delayed release 40 mg PO DAILY 08/04/22 [History Last Taken Unknown] spironolactone 50 mg tablet See Rx Instructions .Route .COMPLEX #56 TABLETS 08/04/22 [Rx Last Taken Unknown] dicyclomine 10 mg capsule 10 mg PO BID PRN abdominal pain #60 caps 08/11/22 [Rx Last Taken Unknown] promethazine 25 mg tablet 25 mg PO TID PRN nausea and vomiting #20 tabs 08/15/22[Rx Last Taken Unknown] Allergy/AdvReac Type Severity Reaction Status Date / Time metformin Allergy Mild Nausea/Vom/ Verified 08/15/22 19:03 Diarrhea pollen extracts Allergy Hives Verified 08/15/22 19:03 escitalopram [From Lexapro] AdvReac Other Verified 08/15/22 19:03 lactase [From Dairy Aid] AdvReac Upset Verified 08/15/22 19:03 Stomach ondansetron AdvReac Anaphylaxis Verified 08/15/22 19:03 [From Zofran (as hydrochloride)] Family History Mother Uterine cancer Other Asthma Depression Diabetes GERD (gastroesophageal reflux disease) Heart disease Hyperlipidemia Hypertension Surgical History H/O knee surgery H/O spinal fusion History of colonoscopy History of esophagogastroduodenoscopy (EGD) History of tonsillectomy and adenoidectomy Social History household members: none housing: apartment current occupational status: unemployed history of recent travel: No Smoking Status: Never smoker alcohol intake: current alcohol intake frequency: holidays/special occasions only substance use type: does not use what type of physical activity do you participate in: walking frequency: daily seatbelt use: always do you feel safe at home: Yes additional social history: single ROS ROS ED Constitutional Constitutional ED: Denies chills, fever(s) or sweats Eyes Eyes: Denies blurry vision or change in vision ENT ENT ED: Denies ear pain or sore throat Cardiovascular Cardiovascular: Denies chest pain, palpitations or racing heartbeat Respiratory/Chest Respiratory/Chest: Denies cough, dyspnea or sputum Gastrointestinal Gastrointestinal: Reports abdominal pain, diarrhea and nausea; Denies constipation or vomiting Genitourinary Genitourinary ED: Denies dysuria, hematuria or urinary frequency Musculoskeletal Musculoskeletal: Denies arthralgias, myalgias or neck pain Integumentary Denies abscess, Abrasions or rash Neurologic Neurologic: Denies headache(s), paresthesias or weakness Psychiatric Psychiatric: Denies anxiety, depression, suicidal ideation or suicidal thoughts Endocrine Endocrinology: Denies polydipsia or polyuria EXAM Physical Exam Const Vital Signs: 08/15/22 19:01 08/15/22 20:47 Temperature 98.2 F Temperature Source Temporal Pulse Rate 111 H 99 Respiratory Rate 17 16 Blood Pressure 127/87 H 119/64 Blood Pressure Mean 100 82 Pulse Ox 100 Oxygen Delivery Method Room Air Room Air Positive well nourished General Appearance ED: NAD; Negative for pallor HEENT Reports moist mucous membranes normocephalic and atraumatic Eyes PERRL and EOMs intact bilaterally Resp normal respiratory effort and clear to auscultation bilaterally Cardio regular rate and regular rhythm GI non-distended GI Narrative: Benign abdomen Neuro CN's II-XII intact bilaterally Sensorium / Orientation: alert, oriented to person, oriented to place and oriented to time Motor Exam: strength 5/5 throughout Psych mental status grossly normal Skin General Skin Exam: Negative for jaundice or pallor MDM MDM MDM Narrative Medical decision making narrative: Patient presenting with nausea, diarrhea, abdominal cramping, diarrhea. This does not sound new. She is diagnosed with IBS-D. It may have been worsened by this endoscopy. We will obtain a CBC to assess white blood cell count, hemoglobin, platelets. Urinalysis to assess for UTI, BMP to assess renal function electrolytes. We will check a lithium level as well. Discussed with Dr. Oliva and he recommended 1 mg of Ativan and 4 mg of morphine to help with the diarrhea. CBC and CMP unremarkable. Urinalysis negative for infection. hCG negative. [place] level is normal. Patient feeling better on reevaluation. I will discharge her home and have follow-up with Dr. Oliva. She was given a prescription for Phenergan. Impression: 1. Nausea 2. Diarrhea 3. Abdominal cramping Lab Data Labs: Laboratory Results - last 24 hr 08/15/22 08/15/22 08/15/22 19:50 19:57 19:57 WBC 9.6 RBC 4.39 Hgb 12.6 Hct 38.4 MCV 87.5 MCH 28.7 MCHC 32.8 RDW Std Deviation 43.6 RDW Coeff of Delmy 13.5 Plt Count 311 MPV 9.0 Immature Gran % (Auto) 0.600 Neut % (Auto) 59.6 Lymph % (Auto) 28.3 Trigg % (Auto) 9.2 Eos % (Auto) 1.8 Baso % (Auto) 0.5 Absolute Neuts (auto) 5.7 Absolute Lymphs (auto) 2.71 Nucleated RBC % 0 Sodium 140 Potassium 3.9 Chloride 109 H Carbon Dioxide 25.0 Anion Gap 6 BUN 11 Creatinine 0.68 Estim Creat Clear Calc 122.99 Est GFR (MDRD) Af Amer 135 Est GFR (MDRD) Non-Af 112 BUN/Creatinine Ratio 16.2 Glucose 121 H Calcium 9.0 Total Bilirubin 0.40 AST 49 H ALT 128 H Alkaline Phosphatase 67 Total Protein 7.1 Albumin 3.2 Globulin 3.9 Albumin/Globulin Ratio 0.8 L Lipase 45 Serum , Qual Urine Color Yellow Urine Clarity Sl. Cloudy Urine pH 6.0 Ur Specific [place] 1.020 Urine Protein 15 H Urine Glucose (UA) Normal Urine Ketones Negative Urine Occult Blood Negative Urine Nitrite Negative Urine Bilirubin Negative Urine Urobilinogen Normal Ur Leukocyte Esterase 25 H Urine RBC 0 SEEN Urine WBC 0-5 SEEN Ur Squamous Epith Cells 0-5 SEEN Urine Bacteria 1+ Urine Mucus 0 SEEN [place] 08/15/22 08/15/22 19:57 19:57 WBC RBC Hgb Hct MCV MCH MCHC RDW Std Deviation RDW Coeff of Delmy Plt Count MPV Immature Gran % (Auto) Neut % (Auto) Lymph % (Auto) Trigg % (Auto) Eos % (Auto) Baso % (Auto) Absolute Neuts (auto) Absolute Lymphs (auto) Nucleated RBC % Sodium Potassium Chloride Carbon Dioxide Anion Gap BUN Creatinine Estim Creat Clear Calc Est GFR (MDRD) Af Amer Est GFR (MDRD) Non-Af BUN/Creatinine Ratio Glucose Calcium Total Bilirubin AST ALT Alkaline Phosphatase Total Protein Albumin Globulin Albumin/Globulin Ratio Lipase Serum , Qual NEGATIVE Urine Color Urine Clarity Urine pH Ur Specific [place] Urine Protein Urine Glucose (UA) Urine Ketones Urine Occult Blood Urine Nitrite Urine Bilirubin Urine Urobilinogen Ur Leukocyte Esterase Urine RBC Urine WBC Ur Squamous Epith Cells Urine Bacteria Urine Mucus [place] 0.60 Discharge Plan Triage Chief Complaint: Abd Pain ED Provider: David Etienne Dx/Rx/DC Orders Instructions: ED Abdominal Pain Unkn Cause Fem, ED Diet Vomiting Diarrhea Prescriptions: New promethazine 25 mg tablet 25 mg PO TID PRN (Reason: nausea and vomiting) Qty: 20 0RF No Action losartan 50 mg tablet 50 mg PO DAILY lithium carbonate 300 MG capsule 300 mg PO DAILY aripiprazole [Abilify] 15 MG tablet 7.5 mg PO DAILY lithium carbonate 600 mg Capsule 600 mg PO QHS amitriptyline 25 mg tablet 25 mg PO QHS hydroxyzine pamoate 25 mg capsule 25 mg PO TID ferrous sulfate [FeroSul] 325 mg (65 mg iron) tablet 325 mg PO QODAY pantoprazole 40 mg Tablet,Delayed Release (Dr/Ec) 40 mg PO DAILY metoclopramide HCl [Reglan] 10 mg tablet 5 mg PO BID Qty: 28 11RF spironolactone 50 mg tablet See Rx Instructions .ROUTE .COMPLEX Qty: 56 0RF Dose Instruction: TAKE 1 TABLET BY MOUTH TWICE A DAY Rx Instructions: TAKE 1 TABLET BY MOUTH TWICE A DAY dicyclomine 10 mg capsule 10 mg PO BID PRN (Reason: abdominal pain) Qty: 60 1RF [facility] - Disposition Disposition: Home, Self Care What to do if you have Problems For any increased pain, shortness of breath, bleeding, nausea or vomiting, chestpain, or any unexpected problems, contact your Primary Care Provider. Call [facility] ([phone]) or report to the closest Emergency Room. Call 911 if necessary. 08/15/222210 <Electronically signed by David Etienne DO> Cosigner Signature (if applicable): CC: [facility] ~ Signed [facility] Work Phone: 1(377) 889-138106-20-2023 Procedure [facility] 08-08-2022 Procedure [facility]06-20-2023 Procedure note [facility]06-20-2023 Procedure [facility] 12-12-2021 History of Present illness Narrative* Mj J Balderas, MD - 12/12/2021 4:42 PM EDT Patient presents with: Dental Problem: right bottom [...] OTC analgesia. Follow up with dentist. Mj Balderas MD documented in this encounter[facility]22 History of Present illness Narrative* Mj Balderas MD - 09/03/2021 10:42 AM EDT Express Care Triage Note: Patient presents to the [facility] with complaint of nausea, vomiting, and dizziness. She has been unable to eat for the last 5 days and has been unable to drink since yesterday. Patient is alert, flat affect, sitting in a wheelchair, and accompanied by her mother. ER treatment recommended for dehydration. documented in this encounterUniversity [facility]10-[facility]21 Hospital Discharge instructions Patient Education 12/14/2020 20:33:17 Polycystic Ovary [...] the follicle stays enlarged. This is a fluid- filled sac called a cyst. Over time, the ovaries fill with many small cysts. This is why they are called poly or many cystic ovaries. In some women, the ovariesalso make too much androgen. Women with PCOS [...] the uterine lining, diabetes, and heart disease. [id number] [employer]. [address] [place] [address]. All rights reserved. This information is not intended as a substitute for professional medical care. Always follow yourhealthcare professional's instructions. 12/14/2020 20:33:13 Dysfunctional Uterine Bleeding Dysfunctional Uterine Bleeding Dysfunctional uterine bleeding, also called abnormal uterine bleeding, is a condition in which bleeding is abnormal and occurs at unexpected times of the month. This happens because of changes in thehormones that help control a woman s menstrual cycle each month. The bleeding may be heavier or hedge trimmer than normal. If you have heavy bleeding often, this can leadto a problem called anemia. With anemia, your red blood cell count is too low. Red blood cells helpcarry oxygen throughout your body. Severe anemia may [...] as directed. Some of the more common medicinesyou may be prescribed include: Hormone therapy (Options [...] try using a heating pad on the lowerbelly or back. A warm bath may also [...] or shortness of breath Dizziness or fainting [id number] [employer]. [address] [place] [address]. All rights reserved. This information is not intended as a substitute for professional medical care. Always follow yourhealthcare professional's instructions. Follow Up Care 12/14/2020 18:23:00 With:ZEUS MILLER CNP Address: [address] [place] [id number]- When:1-2 days [facility] 11-18-2020 History of Present illness Narrative* Therese Hawk Tech (Tech) - 01/07/2020 9:00 AM EST Radiology Service Progress Note PATIENT NAME: Marion Gutierrez DATE OF SERVICE: January 07, 2020 TIME: 9:03 AM PATIENT IDENTITY VERIFICATION COMPLETED USING TWO (2) IDENTIFIERS: Name and Date of confirmedby patient verbally. FALL SCREENING: Has the patient had 2 falls in the last year or 1 fall with injury or currently using an Ambulatory Assistive Device (Walker, Cane, Wheelchair, Crutches, etc.)? No PATIENT GENDER DATA: Female. status: : No status: NO. PATIENT RELEVANT IMPLANT DATA REVIEWED: Not Applicable RADIOLOGY DEPARTMENT: General X-ray: Exam(s) Completed: Lower Extremity X- Ray(s): Ankle, Left and Wt. Bearing and Foot, Left and Wt. Bearing: PERIPHERAL IV DATA: Not applicable SIGNED BY: Eleazar Demarco January 07, 2020 9:03 AM documented in this encounterUniversity Hospitals St. John [facility] CenterDismer[facility] hospital[facility] summary Author Ozzy Bright [facility] November 23, 2022 12:33am Note Date/Time November 23, 2022 12 :05am [facility] Medical Records Department [address] [place], [place] [address] [address] Emergency Department Summary 11/23/22 MR#: [id number] Acct: [id number] Name: MARION GUTIERREZ Rep #:[id number] : 1995 27 From: Ozzy Angel PCP: [facility] St atus:REG ER Location: ED HPI History of Present Illness Chief Complaint: Hypoglycemia Informant: patient Onset/Context/Timing Onset: Today Context: Gradual Onset Timing: Continuous Quality: Lightheaded, dizzy Location: Generalized Worsened by: Nothing Relieved by: Nothing Narrative Narrative: Patient presents with hypoglycemia that occurred today. Patient states she feltlightheaded and dizzy. Patient states she checked her blood sugar at home and it was 60. Patient states that she ate some peanut butter cups and rechecked her blood sugar later. Patient states it was 40 at that time. Patient ate something else and then came to the emergency department. Patient's blood sugarwhen she got here was 73. Patient was feeling somewhat better. Patient was recently started on Victoza and took her first dose today. Patient denies any chest pain or shortness of breath. Patient denies any fevers or chills. Patient does admit to some blurred vision when her blood sugar was low. [facility] Medical History Anxiety Arthritis Autism Back pain Bipolar 1 disorder Bipolar disorder Depression with anxiety Dietary restriction Fatty liver Heartburn History of echocardiogram IBS (irritable bowel syndrome) Migraine headache Migraines Non-smoker PCOS (polycystic ovarian syndrome) Syncope Wears glasses Home Medications lithium carbonate 300 mg capsule 300 mg PO DAILY 04/05/17 [History Last Taken Unknown] ferrous sulfate 325 mg (65 mg iron) tablet (FeroSul) 325 mg PO QODAY 01/24/22 [History Last Taken Unknown] hydroxyzine pamoate 25 mg capsule 25 mg PO TID 01/24/22 [History Last Taken Unknown] lithium carbonate 600 mg capsule 600 mg PO QHS 01/24/22 [History Last Taken Unknown] losartan 50 mg tablet 50 mg PO DAILY 02/28/22 [History Last Taken Unknown] metoclopramide HCl 10 mg tablet (Reglan) 5 mg (1/2 x 10 mg) PO BID nausea and vomiting #28 tabs 06/21/22 [Rx Last Taken Unknown] pantoprazole 40 mg tablet,delayed release 40 mg PO DAILY 08/04/22 [History Last Taken Unknown] fremanezumab-vfrm 225 mg/1.5 mL subcutaneous auto-injector (Ajovy) 225 mg subcutQMONTH 10/03/22 [History Last Taken Unknown] hydrocortisone 1 % topical cream 1 applic topical TID PRN itching #28.4 grams 10/03/22 [Rx Last Taken Unknown] medroxyprogesterone 10 mg tablet 10 mg PO QDAY 10 days #10 tabs 10/03/22 [Rx Last Taken Unknown] budesonide 3 mg capsule,delayed,extended release 9 mg (3 x 3 mg) PO DAILY #90 ea10/10/22 [Rx Last Taken Unknown] famotidine 40 mg tablet 40 mg PO BID #60 tabs 10/31/22 [Rx Last Taken Unknown] spironolactone 50 mg tablet See Rx Instructions .Route .COMPLEX #60 TABLETS 11/01/22 [Rx Last Taken Unknown] Allergy/AdvReac Type Severity Reaction Status Date / Time metformin Allergy Mild Nausea/Vom/ Verified 11/22/22 20:19 Diarrhea pollen extracts Allergy Hives Verified 11/22/22 20:19 escitalopram [From Lexapro] AdvReac Other Verified 11/22/22 20:19 lactase [From Dairy Aid] AdvReac Upset Verified 11/22/22 20:19 Stomach ondansetron AdvReac Anaphylaxis Verified 11/22/22 20:19 [From Zofran (as hydrochloride)] Family History Mother Uterine cancer Other Asthma Depression Diabetes GERD (gastroesophageal reflux disease) Heart disease Hyperlipidemia Hypertension Surgical History H/O knee surgery H/O spinal fusion History of colonoscopy History of esophagogastroduodenoscopy (EGD) History of tonsillectomy and adenoidectomy Social History household members: none housing: apartment current occupational status: unemployed history of recent travel: No Smoking Status: Never smoker alcohol intake: current alcohol intake frequency: holidays/special occasions only substance use type: does not use what type of physical activity do you participate in: walking frequency: daily seatbelt use: always do you feel safe at home: Yes additional social history: single ROS ROS ED Constitutional Constitutional ED: Denies chills or fever(s) Eyes Eyes: Reports blurry vision and change in vision; Denies diplopia ENT ENT ED: Denies rhinorrhea or sore throat Cardiovascular Cardiovascular: Denies chest pain or palpitations Respiratory/Chest Respiratory/Chest: Reports cough; Denies dyspnea Gastrointestinal Gastrointestinal: Reports nausea and vomiting Genitourinary Genitourinary ED: Denies dysuria or hematuria Musculoskeletal Musculoskeletal: Denies back pain or neck pain Integumentary Denies abscess or rash Neurologic Neurologic: Reports headache(s); Denies weakness Allergic/Immunologic Allergic/Immunologic ED: Denies mouth swelling or urticaria EXAM Physical Exam Const Vital Signs: 11/22/22 20:15 11/22/22 21:47 11/22/22 22:15 Temperature 97.7 F L Temperature Source Temporal Pulse Rate 108 H 66 Respiratory Rate 15 18 Respiratory Effort Normal Respiratory Pattern Normal Blood Pressure 138/79 H 133/65 H Blood Pressure Mean 98 87 Pulse Ox 99 99 Oxygen Delivery Method Room Air Room Air Positive well nourished, well developed and obese General Appearance ED: well developed and NAD Nutritional Appearance: obese HEENT Reports moist mucous membranes Neck supple and no JVD Resp normal respiratory effort and clear to auscultation bilaterally Cardio regular rate, regular rhythm and no murmurs GI normal to inspection, nondistended, normoactive bowel sounds and non-tender Palpation: soft Extremity normal to inspection General Extremety ED: Negative for edema or tenderness General Extremity: Negative for edema Neuro oriented x3, CN's II-XII intact bilaterally and no sensory deficits noted Sensorium / Orientation: alert Motor Exam: strength 5/5 throughout Psych mental status grossly normal Skin no rashes or lesions noted MDM MDM MDM Narrative Medical decision making narrative: Differential diagnosis includes hyperglycemia, electrolyte abnormality, and kidney injury. Basic metabolic profile will be obtained to assess for electrolyte abnormality and kidney injury. Lab Data Labs: Laboratory Results - last 24 hr 11/22/22 11/22/22 11/22/22 20:22 21:16 21:54 Sodium 139 Potassium 3.8 Chloride 109 H Carbon Dioxide 25.0 Anion Gap 5 BUN 11 Creatinine 0.66 Est GFR (MDRD) Af Amer 140 Est GFR (MDRD) Non-Af 115 BUN/Creatinine Ratio 16.7 Glucose 89 Calcium 9.4 POC Glucose 45 L 73 L Treatment and Re-Evaluation :: Patient was given regular diet here. Repeat BGT was 93. Patient was advised ofher findings. Patient was instructed to eat a regular diet. Patient was instructed to contact her primary care physician tomorrow for further managementof her Victoza. Patient and family understood and were agreeable with the plan. All questions were answered. Discharge Plan Triage Chief Complaint: Hypoglycemia ED Provider: Ozzy Bright Dx/Rx/DC Orders Clinical Impression: Hypoglycemia associated with diabetes, Morbid obesity, Autism Instructions: ED Diabetic Insulin Reaction Prescriptions: No Action Ajovy Autoinjector 225 mg/1.5 mL auto-injector 225 mg subcut QMONTH medroxyprogesterone 10 mg tablet 10 mg PO QDAY 10 Days Qty: 10 2RF Rx Instructions: Take daily X 10 days to induce menses. Repeat every 3 months if no spontaneous menses hydrocortisone 1 % cream 1 applic topical TID PRN (Reason: itching) Qty: 28.4 1RF losartan 50 mg tablet 50 mg PO DAILY lithium carbonate 300 MG capsule 300 mg PO DAILY lithium carbonate 600 mg Capsule 600 mg PO QHS hydroxyzine pamoate 25 mg capsule 25 mg PO TID ferrous sulfate [FeroSul] 325 mg (65 mg iron) tablet 325 mg PO QODAY pantoprazole 40 mg Tablet,Delayed Release (Dr/Ec) 40 mg PO DAILY metoclopramide HCl [Reglan] 10 mg tablet 5 mg PO BID Qty: 28 11RF budesonide 3 mg capsule,delayed,extend.release 9 mg PO DAILY Qty: 90 2RF famotidine 40 mg tablet 40 mg PO BID Qty: 60 2RF spironolactone 50 mg tablet See Rx Instructions .ROUTE .COMPLEX Qty: 60 6RF Dose Instruction: TAKE 1 TABLET BY MOUTH TWICE A DAY Rx Instructions: TAKE 1 TABLET BY MOUTH TWICE A DAY Primary Care Provider: [facility] Daniel Betancur Referrals: [facility] Daniel Betancur [Primary Care Provider] - 3-5 Days Activity Restrictions/Additional Instructions: Call your primary care physician tomorrow for further instructions on your Victoza. Disposition Disposition: Home, Self Care What to do if you have Problems For any increased pain, shortness of breath, bleeding, nausea or vomiting, chestpain, or any unexpected problems, contact your Primary Care Provider. Call [facility] ([phone]) or report to the closest Emergency Room. Call 911 if necessary. 11/23/22 0033 <Electronically signed by Ozzy Bright DO> Cosigner Signature (if applicable): CC: [facility] ~ Signed [facility] Work Phone: Discharge summary Author Stna Lin [facility] Note Date/Time May 15, 2024 12: 13am [facility] Medical Records Department [address] [place] [address] Emergency Department Summary 05/15/24 MR#: [id number] Acct: [id number] Name: MARION GUTIERREZ Rep #:[id number] : 1995 28 From: Stan Lin DO PCP: REED Sotomayor, [employer]. [employer] Statu s:REG ER Location: ED HPI History of Present Illness Chief Complaint: Chest Pain Narrative Narrative: Patient is a 28-year-old female with past medical history of GERD, depression, diabetes, bipolar disorder, PCOS, autism who presents to the emergency department with a chief complaint of chest pain and nausea vomiting. Patient states that she was cooking and developed chest pain is been going on for approximate hour and 1/2 to 2 hours. She states that she felt lightheaded as well and had to sit on the floor. States that her symptoms were not improving therefore she came here for evaluation management. Patient denies any sick contacts [facility] Medical History Alcohol use Picking own skin Low iron Fatty liver Gastroparesis Cardiology follow-up encounter Palpitations Obesity Depression Diabetes GERD (gastroesophageal reflux disease) Irregular heart beat Cellulitis History of echocardiogram Wears glasses Bipolar disorder Anxiety Arthritis Back pain Migraine headache Syncope Non-smoker Bipolar 1 disorder PCOS (polycystic ovarian syndrome) IBS (irritable bowel syndrome) Migraines Autism Home Medications ?Medication ?Instructions ?Recorded ?Last Taken ?Type lithium carbonate 300 mg capsule 300 mg PO DAILY Bipol ar 04/05/17 10/22/23 History ferrous sulfate 325 mg (65 mg 325 mg PO QODAY suppleme nt 01/24/22 10/21/23 History iron) tablet (FeroSul) lithium carbonate 600 mg capsule 600 mg PO QHS mental health 01/24/22 10/22/23 History fremanezumab-vfrm 225 mg/1.5 mL 225 mg subcut QMONTH m igraine 10/03/22 11/21/22 History subcutaneous auto-injector (Ajovy) aripiprazole lauroxil 441 mg/1.6 441 mg IM .COMPLEX [facility] 12/18/22 10/23/23 History mL suspension, ext.rel. IM syringe (Aristada) cholecalciferol (vitamin D3) 25 25 mcg PO DAILY vitami n 12/18/22 10/22/23 History mcg (1,000 unit) tablet (Vitamin D3) imipramine HCl 25 mg tablet 25 mg PO DAILY mental heal th 12/18/22 10/22/23 History mecobalamin (vitamin B12) 1,000 1,000 mcg PO DAILY 10/22/23 History mcg lozenges pantoprazole 40 mg tablet,delayed 40 mg PO DAILY 06/0210/22/23 History release simvastatin 20 mg tablet 20 mg PO QHS 06/03/23 History lactulose 10 gram/15 mL oral 30 g (45 mL) PO BID PRN 0 09/28/23 10/21/23 Rx solution constipation #473 mL hyoscyamine sulfate 0.125 mg tablet 0.125 mg PO BID-QI D PRN dyspepsia 10/10/23 10/21/23 Rx #30 tabs medroxyprogesterone 10 mg tablet 10 mg PO .COMPLEX #30 tabs 10/17/23 10/22/23 Rx polyethylene glycol 3350 17 4 g PO ONCE PRN constipati on 10/17/23 10/24/23 History gram/dose oral powder (Miralax) sucralfate 1 gram tablet 1 g PO TID PRN constipation 10/19/23 10/21/23 History diphenoxylate-atropine 2.5 1 tab PO BID PRN diarrhea # 30 tabs 10/29/23 Unknown Rx mg-0.025 mg tablet (Lomotil) metoclopramide HCl 10 mg tablet 5 mg (1/2 x 10 mg) PO BID nausea 04/22/24 Unknown Rx (Reglan) and vomiting #28 tabs metoprolol tartrate 50 mg tablet 50 mg PO BID #180 tab s 04/23/24 Unknown Rx amlodipine 10 mg tablet 5 mg (1/2 x 10 mg) PO QDAY # 90 tabs 05/05/24 Unknown Rx dicyclomine 20 mg tablet 20 mg PO TID PRN abdominal p ain 05/08/24 Unknown Rx #30 tabs metoclopramide HCl 10 mg tablet 10 mg PO Q6H PRN nause a and 05/08/24 Unknown Rx (Reglan) vomiting #20 tabs Allergy/AdvReac Type Severity Reaction Status Date / Time metformin Allergy Mild Nausea/Vom/ Verified 05/14/24 20:50 Diarrhea pollen extracts Allergy Hives Verified 05/14/24 20:50 escitalopram (From Lexapro) AdvReac Other Verified 05/14/24 20:50 lactase (From Dairy Aid) AdvReac Upset Verified 05/14/24 20:50 Stomach ondansetron (From Zofran (as AdvReac Anaphylaxis Verified 05/14/24 20:50 hydrochloride)) Family History Mother Uterine cancer Other Asthma Depression Diabetes GERD (gastroesophageal reflux disease) Heart disease Hyperlipidemia Hypertension Surgical History History of colonoscopy History of esophagogastroduodenoscopy (EGD) History of tonsillectomy and adenoidectomy H/O knee surgery H/O spinal fusion Social History household members: none housing: apartment current occupational status: unemployed history of recent travel: No Smoking Status: Never smoker alcohol intake: current alcohol intake frequency: holidays/special occasions only substance use type: does not use caffeine: Yes Type: carbonated beverages what type of physical activity do you participate in: walking frequency: daily seatbelt use: always do you feel safe at home: Yes additional social history: single ROS ROS ED ROS Narrative Constitutional: Denies fevers, chills, headaches Eyes: Denies double vision blurry vision Cardiovascular: Complains of chest pain as noted above denies any radiation denies palpitations Respiratory: Denies coughing wheezing shortness of breath Abdomen: Complains of nausea vomiting denies abdominal pain : Denies urinary symptoms Neurological: Denies numbness, weakness, tingling Musculoskeletal: Denies back pain Skin: Denies rashes or lesions EXAM Physical Exam Narrative Exam Narrative: General: Patient is lying in bed rest comfortably did not appear to be in acute distress Head: Atraumatic, normocephalic Eyes: PERRL bilateral, EOMI bilateral, no conjunctival injection noted Neck: Soft, supple, trachea midline Cardiovascular: Regular rate and rhythm no murmurs gallops rubs noted Respiratory: Clear to auscultation bilaterally Abdomen: Soft, nondistended, no tenderness palpation Extremities: +5/5 strength noted in the bilateral upper and lower extremities, radial pulse +2/4 in the bilateral upper extremities, no pedal edema on exam Neurological: Patient following commands and that she was at [facility] year is 2024. NIH of 0 GCS 15 Skin: Warm, dry, intact no rashes or lesions noted Const Vital Signs: 05/14/24 20:47 05/14/24 22:34 05/14/24 22:38 Temperature 98.3 F Temperature Source Temporal Pulse Rate 94 84 Respiratory Rate 18 Blood Pressure 154/101 H 136/75 H Blood Pressure Mean 118 95 Pulse Ox 100 98 Oxygen Delivery Method Room Air Room Air Room Air MDM MDM MDM Narrative Medical decision making narrative: Patient is a 28-year-old female who presented to the emergency department with chief complaint chest pain nausea vomiting. On the differential diagnose includes but not limited to DKA, ACS, pneumonia, pneumothorax, GERD, anxiety. Once workup is obtained reviewed she will be reevaluated. Patient be given IV fluids and Reglan. Patient CBC reviewed and showed no evidence of leukocytosis white blood cell count normal 8.2, hemoglobin stable 12.7, plate count normal at 374. Patient sodium normal 136, potassium normal 4.1, creatinine was noted to be normal at 0.73. Patient anion gap normal at 11. Patient glucose 124. Patient's troponinwas less than 6 with a delta troponin of less than 6 as well. Patient chest x-ray reviewed by myself and by radiology showed no acute cardiopulmonary processes. Patient on reevaluation is feeling much improved she would like to go home at this point in time. She states that she has Reglan at home she was advised to use this as needed for nausea or vomiting. She is encouraged to follow-up with her primary care physician outpatient setting return to worsening symptoms or concerns. Mother at bedside is also agreeable to plan all question concerns answered she is discharged home in stable condition. Lab Data Labs: Laboratory Results - last 24 hr 05/14/24 05/14/24 21:03 23:16 WBC 8.2 RBC 4.72 Hgb 12.7 Hct 39.4 MCV 83.5 MCH 26.9 L MCHC 32.2 RDW Std Deviation 43.8 RDW Coeff of Delmy 14.5 Plt Count 374 MPV 9.0 Immature Gran % (Auto) 0.100 Neut % (Auto) 58.9 Lymph % (Auto) 31.2 Trigg % (Auto) 9.0 Eos % (Auto) 0.4 Baso % (Auto) 0.4 Absolute Neuts (auto) 4.8 Absolute Lymphs (auto) 2.55 Nucleated RBC % 0 Sodium 136 Potassium 4.1 Chloride 105 Carbon Dioxide 20.5 L Anion Gap 11 BUN 15 Creatinine 0.73 Estim Creat Clear Calc 161.90 Est GFR (MDRD) Non-Af 116 BUN/Creatinine Ratio 20.0 Glucose 124 H Calcium 9.5 Troponin T High Sens < 6 Troponin T Hi Sens 2 Hr < 6 Radiography Diagnostic Testing: Clinical Impression(s) from Imaging Studies Chest X-Ray 05/14/24 21:00 IMPRESSION: No Acute Findings. Reading Location: [facility] Discharge Plan Triage Chief Complaint: Chest Pain ED Provider: Stan Lin Dx/Rx/DC Orders Clinical Impression: Nausea & vomiting, Chest pain Prescriptions: No Action Ajovy Autoinjector 225 mg/1.5 mL auto-injector 225 mg subcut QMONTH Patient Comments: PT STATES USES BETWEEN FIRST AND FIFTH OF EACH MONTH; hasn't started yet medroxyprogesterone 10 mg tablet 10 mg PO .COMPLEX Qty: 30 4RF Rx Instructions: 10 mg orally first 10 days each month; T mecobalamin (vitamin B12) 1,000 mcg lozenge 1,000 mcg PO DAILY Rx Instructions: allow to dissolve in mouth OR may chew lightly before swallowing hyoscyamine sulfate 0.125 mg tablet 0.125 mg PO BID-QID PRN (Reason: dyspepsia) Qty: 30 0RF lithium carbonate 300 MG capsule 300 mg PO DAILY lithium carbonate 600 mg Capsule 600 mg PO QHS ferrous sulfate [FeroSul] 325 mg (65 mg iron) tablet 325 mg PO QODAY imipramine HCl 25 mg tablet 25 mg PO DAILY cholecalciferol (vitamin D3) [Vitamin D3] 25 mcg (1,000 unit) tablet 25 mcg PO DAILY Aristada 441 mg/1.6 mL suspension,extended rel syring 441 mg IM .COMPLEX Rx Instructions: 441 mg intramuscularly Q28D; polyethylene glycol 3350 [Miralax] 17 gram/dose powder 4 g PO ONCE PRN (Reason: constipation) sucralfate 1 gram tablet 1 g PO TID PRN (Reason: constipation) Rx Instructions: 1 g orally Take on an empty stomach. Hour before meals-lunch and dinner; do not take within 2 hours before or after lithium metoclopramide HCl [Reglan] 10 mg tablet 10 mg PO Q6H PRN (Reason: nausea and vomiting) Qty: 20 0RF dicyclomine 20 mg tablet 20 mg PO TID PRN (Reason: abdominal pain) Qty: 30 0RF simvastatin 20 mg tablet 20 mg PO QHS pantoprazole 40 mg tablet,delayed release (DR/EC) 40 mg PO DAILY lactulose 10 gram/15 mL solution 30 g PO BID PRN (Reason: constipation) Qty: 473 1RF diphenoxylate-atropine [Lomotil] 2.5-0.025 mg tablet 1 tab PO BID PRN (Reason: diarrhea) Qty: 30 2RF metoclopramide HCl [Reglan] 10 mg tablet 5 mg PO BID Qty: 28 11RF metoprolol tartrate 50 mg tablet 50 mg PO BID Qty: 180 3RF amlodipine 10 mg tablet 5 mg PO QDAY Qty: 90 3RF Primary Care Provider: Naina Da Silva Referrals: Naina Da Silva, [employer]. [employer] [Primary Care Provider] - Activity Restrictions/Additional Instructions: Follow with your primary care physician outpatient setting. Return with worsening symptoms or concerns. Chest x-ray is normal and your blood work was normal. Use your Reglan that you have at home for nausea and vomiting. Print Language: [place] Islander Disposition Disposition: Home, Self Care What to do if you have Problems For any increased pain, shortness of breath, bleeding, nausea or vomiting, chestpain, or any unexpected problems, contact your Primary Care Provider. Call [facility] ([phone]) or report to the closest Emergency Room. Call 911 if necessary. 05/15/24 0013 <Electronically signed by Stan Lin DO> Cosigner Signature (if applicable): CC: [facility] [employer] Naina Da Silva ~ Signed [facility] Work Phone: Discharge summary Author Jaylon Galicia [facility] Note Date/Time June 03, 2024 1:0 3pm [facility] Medical Records Department [address] [place] [address] Emergency Department Summary 06/03/24 MR#: [id number] Acct: [id number] Name: MARION GUTIERREZ Rep #:[id number] : 1995 28 From: Jaylon Galicia MD PCP: Karuna Lim [facility] [employer] Status:REG ER Location: ED HPI History of Present Illness Chief Complaint: Neuro S/Sx Informant: patient and parent Narrative Narrative: 28-year-old female presents saying she been having a migraine for 1 week [id number] medications that are not helping, she gets migraines frequentlyand this feels similar with blurred vision although just in the right eye, nausea, photophobia. However she has also been having right arm discomfort and numbness along with this, possibly started before the headache, she denies any neck pain or trouble walking, but also states for a little longer than a week she has also been having chest pain. She states sometimes she feels tightness in my heart and then some palpitations and then heaviness in her chest like anelephant sitting on it. She states she was more concerned this morning when she checked her blood pressure at home because of her headache, and it was 200 systolic in the right arm and 150 systolic in the left arm. She states she has been typically 20 or 30 points higher in the right arm than the left when she has checked it in the past, but she has never had this looked into. She does not usually get chest discomfort. When asked if it was sharp and tearing she initially states yes, but then when we clarified this, she denies it and states it is just feeling heavy like someone sitting on it. She denies radiation into her back. She has had some jaw discomfort at times. [facility] Medical History Alcohol use Picking own skin Low iron Fatty liver Gastroparesis Cardiology follow-up encounter Palpitations Obesity Depression Diabetes GERD (gastroesophageal reflux disease) Irregular heart beat Cellulitis History of echocardiogram Wears glasses Bipolar disorder Anxiety Arthritis Back pain Migraine headache Syncope Non-smoker Bipolar 1 disorder PCOS (polycystic ovarian syndrome) IBS (irritable bowel syndrome) Migraines Autism Home Medications ?Medication ?Instructions ?Recorded ?Last Taken ?Type lithium carbonate 300 mg capsule 300 mg PO DAILY Bipol ar 04/05/17 10/22/23 History ferrous sulfate 325 mg (65 mg 325 mg PO QODAY suppleme nt 01/24/22 10/21/23 History iron) tablet (FeroSul) lithium carbonate 600 mg capsule 600 mg PO QHS mental health 01/24/22 10/22/23 History aripiprazole lauroxil 441 mg/1.6 441 mg IM .COMPLEX [facility] 12/18/22 10/23/23 History mL suspension, ext.rel. IM syringe (Aristada) cholecalciferol (vitamin D3) 25 25 mcg PO DAILY vitami n 12/18/22 10/22/23 History mcg (1,000 unit) tablet (Vitamin D3) imipramine HCl 25 mg tablet 25 mg PO DAILY mental heal th 12/18/22 10/22/23 History mecobalamin (vitamin B12) 1,000 1,000 mcg PO DAILY 10/22/23 History mcg lozenges pantoprazole 40 mg tablet,delayed 40 mg PO DAILY 06/0210/22/23 History release simvastatin 20 mg tablet 20 mg PO QHS 06/03/23 History lactulose 10 gram/15 mL oral 30 g (45 mL) PO BID PRN 0 09/28/23 10/21/23 Rx solution constipation #473 mL hyoscyamine sulfate 0.125 mg tablet 0.125 mg PO BID-QI D PRN dyspepsia 10/10/23 10/21/23 Rx #30 tabs medroxyprogesterone 10 mg tablet 10 mg PO .COMPLEX #30 tabs 10/17/23 10/22/23 Rx polyethylene glycol 3350 17 4 g PO ONCE PRN constipati on 10/17/23 10/24/23 History gram/dose oral powder (Miralax) sucralfate 1 gram tablet 1 g PO TID PRN constipation 10/19/23 10/21/23 History diphenoxylate-atropine 2.5 1 tab PO BID PRN diarrhea # 30 tabs 10/29/23 Unknown Rx mg-0.025 mg tablet (Lomotil) metoclopramide HCl 10 mg tablet 5 mg (1/2 x 10 mg) PO BID nausea 04/22/24 Unknown Rx (Reglan) and vomiting #28 tabs metoprolol tartrate 50 mg tablet 50 mg PO BID #180 tab s 04/23/24 Unknown Rx dicyclomine 20 mg tablet 20 mg PO TID PRN abdominal p ain 05/08/24 Unknown Rx #30 tabs metoclopramide HCl 10 mg tablet 10 mg PO Q6H PRN nause a and 05/08/24 Unknown Rx (Reglan) vomiting #20 tabs miscellaneous medical supply #1 ea 05/29/24 Unknown Rx amlodipine 5 mg tablet 5 mg PO QDAY 06/02/24 Unknow n History Allergy/AdvReac Type Severity Reaction Status Date / Time metformin Allergy Mild Nausea/Vom/ Verified 06/03/24 08:35 Diarrhea pollen extracts Allergy Hives Verified 06/03/24 08:35 escitalopram (From Lexapro) AdvReac Other Verified 06/03/24 08:35 lactase (From Dairy Aid) AdvReac Upset Verified 06/03/24 08:35 Stomach ondansetron (From Zofran (as AdvReac Anaphylaxis Verified 06/03/24 08:35 hydrochloride)) Family History Mother Uterine cancer Other Asthma Depression Diabetes GERD (gastroesophageal reflux disease) Heart disease Hyperlipidemia Hypertension Surgical History History of colonoscopy History of esophagogastroduodenoscopy (EGD) History of tonsillectomy and adenoidectomy H/O knee surgery H/O spinal fusion Social History household members: none housing: apartment current occupational status: unemployed history of recent travel: No Smoking Status: Never smoker alcohol intake: current alcohol intake frequency: holidays/special occasions only substance use type: does not use caffeine: Yes Type: carbonated beverages what type of physical activity do you participate in: walking frequency: daily seatbelt use: always do you feel safe at home: Yes additional social history: single ROS ROS ED Constitutional Constitutional ED: Denies chills or fever(s) Eyes Eyes: Reports blurry vision right and photophobia; Denies diplopia or loss of vision ENT ENT ED: Denies ear pain or sore throat Cardiovascular Cardiovascular: Reports chest pain and palpitations Respiratory/Chest Respiratory/Chest: Denies cough or dyspnea Gastrointestinal Gastrointestinal: Reports nausea; Denies abdominal pain, diarrhea or vomiting Genitourinary Genitourinary ED: Denies dysuria or urinary frequency Musculoskeletal Musculoskeletal: Denies back pain, myalgias or neck pain Integumentary Denies abscess or rash Neurologic Neurologic: Reports headache(s) and paresthesias RUE; Denies weakness Psychiatric Psychiatric: Denies suicidal thoughts EXAM Physical Exam Const Vital Signs: 06/03/24 08:35 06/03/24 09:35 06/03/24 09:35 Temperature 97.6 F L Temperature Source Oral Pulse Rate 103 H Respiratory Rate 18 Blood Pressure 164/127 H 160/98 H Blood Pressure Mean 139 118 Pulse Ox 99 Oxygen Delivery Method Room Air Room Air 06/03/24 09:35 06/03/24 10:00 06/03/24 11:00 Temperature Temperature Source Pulse Rate 98 98 Respiratory Rate 19 H Blood Pressure 150/92 H 169/108 H Blood Pressure Mean 111 128 Pulse Ox 97 98 99 Oxygen Delivery Method Room Air Room Air Room Air 06/03/24 12:00 Temperature Temperature Source Pulse Rate 101 H Respiratory Rate 19 H Blood Pressure 150/92 H Blood Pressure Mean 111 Pulse Ox 98 Oxygen Delivery Method Room Air Positive well nourished, well developed and obese General Appearance ED: well developed and NAD Nutritional Appearance: obese HEENT Reports normocephalic and moist mucous membranes atraumatic Eyes PERRL, EOMs intact bilaterally and conjunctivae normal Eyes Narrative: photophobia Neck no lymphadenopathy, supple and no meningeal signs Neck Narrative: No carotid bruits bilaterally, auscultated [address] each side Resp normal respiratory effort and clear to auscultation bilaterally Cardio regular rate, regular rhythm and no murmurs GI non-tender and non-distended Auscultation: normoactive bowel sounds Palpation: soft Back/Spine no CVA tenderness General Back: other FROM Extremity normal to inspection and full ROM Extremity Narrative: Equal bilateral radial and posterior tibial pulses General Extremety ED: Negative for edema, pulses abnormal or tenderness General Extremity: Negative for edema or pulses abnormal Neuro oriented x3 and CN's II-XII intact bilaterally Neuro Narrative: Decreased sensation right lower face, right upper extremity and right lower extremity compared to contralateral side. No facial droop, no weakness. Normalspeech. Normal perception. Sensorium / Orientation: awake and alert Speech: speech normal Gait (Neuro): normal gait Motor Exam: strength 5/5 throughout Psych mental status grossly normal Psych Narrative: flat affect Skin no rashes or lesions noted and no wounds Lesions: no lesions Rashes: no rashes MDM MDM MDM Narrative Medical decision making narrative: Triage blood pressure 154/127, at the time of my exam with a cuff on her left arm her blood pressure is 156/94, and a few minutes later, 179/127 although thispatient is young and has no specific reason to have. 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 She did have some partial improvement with Benadryl and Reglan. I reviewed the imaging of her head, neck, chest, and I agree with the report which I also reviewed. Basically negative for any acute. Patient's blood pressures have mostly been in the 150/90 range. I do not think she needs emergent treatment at this number, but I do think she should follow-up for reevaluation of her blood pressures. She states her headache is no longer a migraine just a headache. Labs including 2 sequential troponins are normal, her EKG is normal. She will be offered Toradol prior to discharge and she will follow-up and she is comfortable with that plan. Lab Data Attestation: I reviewed the patient's lab results. Labs: Laboratory Results - last 24 hr 06/03/24 06/03/24 09:30 11:10 WBC 6.5 RBC 4.53 Hgb 12.1 Hct 36.7 L MCV 81.0 MCH 26.7 L MCHC 33.0 RDW Std Deviation 42.2 RDW Coeff of Delmy 14.3 Plt Count 347 MPV 9.8 Immature Gran % (Auto) 0.300 Neut % (Auto) 64.3 Lymph % (Auto) 25.5 Trigg % (Auto) 8.9 Eos % (Auto) 0.5 Baso % (Auto) 0.5 Absolute Neuts (auto) 4.2 Absolute Lymphs (auto) 1.66 Nucleated RBC % 0 Sodium 139 Potassium 3.5 Chloride 105 Carbon Dioxide 22.0 Anion Gap 12 BUN 9 Creatinine 0.53 L Estim Creat Clear Calc 225.17 Est GFR (MDRD) Non-Af 130 BUN/Creatinine Ratio 17.9 Glucose 118 H Calcium 8.9 Troponin T High Sens < 6 Troponin T Hi Sens 2 Hr < 6 Radiography Diagnostic Testing: Clinical Impression(s) from Imaging Studies Chest CTA 06/03/24 08:57 IMPRESSION: 1. Limited exam as above. No definite acute abnormality allowing for limitations. 2. Partially imaged at least mild hepatosplenomegaly. Correlate with clinical and laboratory evaluation. 3. Additional description as above. Reading Location: [facility] Head/Neck CTA 06/03/24 08:57 IMPRESSION: 1. No visible acute noncontrast intracranial findings. If concern persists, consider MRI. 2. Considerably limited CTA due to contrast timing. In particular, the vertebral arteries are very poorly evaluated. The RIGHT vertebral artery is not well seen and could be diminutive or occluded. Otherwise, no definite high-grade stenosis or large vessel occlusion identified allowing for limitations. Given the extent of limitations, would consider a repeat CTA based on the level of clinical concern. 3. Additional description as above. Reading Location: [facility] Rhythm Strip Rhythm Strip: Sinus Rhythm Rate: 95 Ectopy: None EKG Initial EKG: Attestation: I personally reviewed and interpreted this EKG as follows: Interpretation: Sinus Rhythm and No Acute Injury Pattern Comments: Nml axis & intervals; nml EKG Discharge Plan Triage Chief Complaint: Neuro S/Sx ED Provider: Jaylon Galicia Dx/Rx/DC Orders Clinical Impression: Migraine, Chest pain of unknown etiology, Paresthesia of right upper and lower extremity, Accelerated hypertension Instructions: ED Chest Pain, Noncardiac, ED Paraesthesias Prescriptions: No Action medroxyprogesterone 10 mg tablet 10 mg PO .COMPLEX Qty: 30 4RF Rx Instructions: 10 mg orally first 10 days each month; T mecobalamin (vitamin B12) 1,000 mcg lozenge 1,000 mcg PO DAILY Rx Instructions: allow to dissolve in mouth OR may chew lightly before swallowing hyoscyamine sulfate 0.125 mg tablet 0.125 mg PO BID-QID PRN (Reason: dyspepsia) Qty: 30 0RF (DME) miscellaneous medical supply Misc See Rx Instructions .Route Qty: 1 0RF Rx Instructions: As directed lithium carbonate 300 MG capsule 300 mg PO DAILY lithium carbonate 600 mg Capsule 600 mg PO QHS ferrous sulfate [FeroSul] 325 mg (65 mg iron) tablet 325 mg PO QODAY imipramine HCl 25 mg tablet 25 mg PO DAILY cholecalciferol (vitamin D3) [Vitamin D3] 25 mcg (1,000 unit) tablet 25 mcg PO DAILY Aristada 441 mg/1.6 mL suspension,extended rel syring 441 mg IM .COMPLEX Rx Instructions: 441 mg intramuscularly Q28D; polyethylene glycol 3350 [Miralax] 17 gram/dose powder 4 g PO ONCE PRN (Reason: constipation) sucralfate 1 gram tablet 1 g PO TID PRN (Reason: constipation) Rx Instructions: 1 g orally Take on an empty stomach. Hour before meals-lunch and dinner; do not take within 2 hours before or after lithium metoclopramide HCl [Reglan] 10 mg tablet 10 mg PO Q6H PRN (Reason: nausea and vomiting) Qty: 20 0RF dicyclomine 20 mg tablet 20 mg PO TID PRN (Reason: abdominal pain) Qty: 30 0RF simvastatin 20 mg tablet 20 mg PO QHS pantoprazole 40 mg tablet,delayed release (DR/EC) 40 mg PO DAILY lactulose 10 gram/15 mL solution 30 g PO BID PRN (Reason: constipation) Qty: 473 1RF diphenoxylate-atropine [Lomotil] 2.5-0.025 mg tablet 1 tab PO BID PRN (Reason: diarrhea) Qty: 30 2RF metoclopramide HCl [Reglan] 10 mg tablet 5 mg PO BID Qty: 28 11RF metoprolol tartrate 50 mg tablet 50 mg PO BID Qty: 180 3RF amlodipine 5 mg tablet 5 mg PO QDAY Primary Care Provider: Karuna Lim Referrals: Karuna Lim, SR. [employer]ICATIONS-C [Primary Care Provider] - As soon as possible Print Language: [place] Islander Disposition Disposition: Home, Self Care What to do if you have Problems For any increased pain, shortness of breath, bleeding, nausea or vomiting, chestpain, or any unexpected problems, contact your Primary Care Provider. Call [facility] ([phone]) or report to the closest Emergency Room. Call 911 if necessary. 06/03/24 1303 <Electronically signed by Jaylon Galicia MD> Cosigner Signature (if applicable): CC: Karuna MCBRIDE SR. MANAGER CORPORATE COMMUNICATIONSJovanna Lim ~ Signed [facility] Work Phone: Evaluation + Plan note No data available for this section [facility] Evaluation noteNo assessment information available [facility] Work Phone: Evaluation note* Diagnosis Onset Date Resolution Status Dysmenorrhea acute Hirsutism acute Oligomenorrhea acute Hypertension chronic Encounter for routine gynecological examination noneactive [facility] Work Phone: Evaluation note* Diagnosis Nausea and vomiting, unspecified vomiting type- Primary Dizziness Dizziness and giddiness documented [facility] Diagnosis Onset Date Resolution Status Dysmenorrhea acute Hirsutism acute Oligomenorrhea acute Hypertension chronic Encounter for routine gynecological examination noneactive Dysmenorrhea acute Hirsutism acute Oligomenorrhea acute [facility] Work Phone: Evaluation note* Diagnosis Dental infection- Primary Acute apical periodontitis of pulpal origin [facility] Diagnosis Onset Date Resolution Status Dysmenorrhea acute Hirsutism acute Oligomenorrhea acute [facility] Work Phone: Evaluation note* Diagnosis Onset Date Resolution Status Nausea vomiting and diarrhea chronic [facility] Work Phone: Evaluation note* Diagnosis Onset Date Resolution Status Nausea vomiting and diarrhea chronic Oligomenorrhea acute Vaginitis noneactive [facility] Work Phone: evaluation note* Diagnosis Onset Date Resolution Status Gastroparesis chronic Nausea vomiting and diarrhea chronic [facility] Work Phone: evaluation note* Diagnosis Onset Date Resolution Status Crohn's disease acute Gastroparesis chronic Nausea vomiting and diarrhea chronic Dysmenorrhea acute Hirsutism acute Oligomenorrhea acute Encounter for routine gynecological examination noneactive Hydradenitis noneactive [facility] Work Phone: evaluation note* Diagnosis Onset Date Resolution Status Crohn's disease acute Gastroparesis chronic Nausea vomiting and diarrhea chronic Dysmenorrhea acute Hirsutism acute Oligomenorrhea acute Encounter for routine gynecological examination noneactive Hydradenitis noneactive Cellulitis acute Syncope acute [facility] Work Phone: evaluation note* Diagnosis Onset Date Resolution Status Syncope resolved Crohn's disease chronic Fatty liver chronic Gastroparesis chronic Nausea vomiting and diarrhea [facility] Work Phone: evaluation note* Diagnosis Onset Date Resolution Status Syncope resolved Crohn's disease chronic Fatty liver chronic Gastroparesis chronic Nausea vomiting and diarrhea chronic Bipolar 1 disorder chronic Diabetes chronic Obesity [facility] Work Phone: evaluation note* Diagnosis Onset Date Resolution Status Crohn's disease chronic Fatty liver chronic Gastroparesis chronic Nausea vomiting and diarrhea chronic Bipolar 1 disorder chronic Diabetes chronic Obesity [facility] Work Phone: Evaluation note* Diagnosis Dizziness- Primary Dizziness and giddiness Headache, unspecified headache type [facility]* Diagnosis Onset Date Resolution Status Bipolar 1 disorder chronic Diabetes chronic Obesity [facility] Work Phone: Evaluation note* Diagnosis Impacted cerumen of left ear- Primary Impacted cerumen [facility]* Diagnosis PCOS (polycystic ovarian syndrome)- Primary Polycystic ovaries Obesity, Class III, BMI 40-49.9 (morbid obesity) (HCC) Morbid obesity [facility]* Diagnosis Pain- Primary Generalized pain documented in this encounter [facility] note* Diagnosis Foot pain, left Pain in limb Sprain of ligament of left ankle, initial encounter [facility] this [facility]* Diagnosis Chronic migraine without aura, intractable, without status migrainosus (CMS/HCC) [facility] Morbid obesity with BMI of 45.0-49.9, adult (CMS/HCC)- Primary Chronic migraine without aura, intractable, without status migrainosus (CMS/HCC) [facility] Diagnosis PCOS (polycystic ovarian syndrome)- Primary Polycystic ovaries Obesity, Class III, BMI 40-49.9 (morbid obesity) (HCC) Morbid obesity [facility]* Diagnosis Sore throat- Primary Acute pharyngitis URI, acute Acute upper respiratory infections of unspecified site [facility]* Diagnosis Acute otitis media, left- Primary Unspecified otitis media Acute otitis externa of left ear, unspecified type [facility]* Diagnosis PCOS (polycystic ovarian syndrome)- Primary Polycystic ovaries Obesity, Class III, BMI 40-49.9 (morbid obesity) ([facility]) Morbid obesity documented [facility] this [facility]* Diagnosis Influenza-like illness- Primary Influenza with other respiratory manifestations [facility]* Diagnosis Obesity, Class III, BMI 40-49.9 (morbid obesity) ([facility])- Primary Morbid obesity PCOS (polycystic ovarian syndrome) Polycystic ovaries documented [facility] this 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, requiring support (level 1) ([facility]) PCOS (polycystic ovarian syndrome) Polycystic ovaries Irritable bowel syndrome with diarrhea Irritable bowel syndrome Bipolar affective disorder, remission status unspecified ([facility]) Palpitations Hirsutism History of suicidal ideation Personal history of other mental disorder [facility]* Diagnosis Bipolar affective disorder, currently depressed, mild ([facility])- Primary Bipolar I disorder, most recent episode (or current) depressed, mild Obesity, Class III, BMI 40-49.9 (morbid obesity) (HCC) Morbid obesity Binge eating disorder, moderate Generalized anxiety disorder documented [facility] Diagnosis PCOS (polycystic ovarian syndrome) Polycystic ovaries Obesity, Class III, BMI 40-49.9 (morbid obesity) Morbid obesity documented [facility] Diagnosis PCOS (polycystic ovarian syndrome) [E28.2]- Primary Polycystic ovaries documented [facility] Diagnosis Obesity, Class III, BMI 40-49.9 (morbid obesity) (HCC)- Primary Morbid obesity Binge eating disorder, moderate Bipolar affective disorder, currently depressed, mild (HCC) Bipolar I disorder, most recent episode (or current) depressed, mild Generalized anxiety disorder documented [facility] Diagnosis Obesity, Class III, BMI 40-49.9 (morbid obesity) (HCC) Morbid obesity Type 2 diabetes mellitus with other specified complication, without long-term current use of insulin (HCC) Palpitations documented in this encounter [facility] Author Andreas Oliva [facility] August 08, 2022 2:27pm Note Date/Time August 08, 2022 2:27 pm [facility] Medical Records Department [address] [place] [address] History & Physical Exam 08/08/22 1426 MR#: [id number] Acct: [id number] Name: MARION GUTIERREZ Rep #:[id number] : 1995 26 From: Andreas Oliva DO PCP: [facility] atus:[facility] Location: [place] [address] History and Physical Date of Admission: 08/08/22 MARION GUTIERREZ, is a 26 F who presents to the office today for PMH autism, bipolar type 1, PCOS [facility] ED on multiple occasions over the years with N/V, headache, diarrhea, CP. Stool studies for infection have been performed throughout the years with calprotectin, C.Difficile, EP, O/P WNL each time. CT abd/pel 1.14.16?abd pain/diarrhea mild hepatomegaly, homogeneous; splenomegaly; multiple fluid-filled small bowel loops; diverticulosis. Stool 9..16?lactoferrin + US RUQ 2.16.16?abd pain hepatomegaly 18.7cm with fatty infiltration. HIDA 4..17?EF 88%. When compared to 2..16 scan there is continued evidence of duodenal-gastric reflux. GI and hepatology specialists established in 2018 with diarrhea, bloating, abd pain, N/V and diagnosed with IBS-D and GERD. ?[facility] Celiac 12.12.17?without positive findings. EGD 01.03.18?advanced to small bowel noting bile in stomach and mild gastritis. No pathologic changes. US 06.27.18?hepatic measurement 18cm with increased echogenicity. ?EGD 09.08.20?advanced to small bowel noting gastritis, mild. Remaining exam without acute/chronic finding. H.Pylori -. ?Colonoscopy 10.08.20?advanced to TI noting internal hemorrhoids without visual abnormality. Without pathologic changes. [facility] ED visits continue as noted above. US RUQ 10.8.21?abd pain hepatomegaly 19cm with fatty infiltration. US ABD 10..22?abd pain hepatomegaly 20.2cm with fatty infiltration; splenomegaly. No ascites. Biochemical workup ?T3, T4, CBC, CMP, TIBC, iron, ferritin, copper, zinc,selenium without pertinent abnormality. ? TSH H4.91 [facility] ED visit prompting referral 01.24.22 with diffuse abdominal pain and diarrhea. She has had issue with diarrhea for many years and has received a diagnosis of IBS- D. Most recent colonoscopy 2020. Discharged without acute concern with cipro/flagyl. ?Biochemical workup?CBC, CMP, lipase without concern. LFT AST H63/ALT H160/ AP57 (AST/ALT ratio 0.39). ?CT abd/pel?diffuse hepatomegaly, normal spleen; wall thickening of right colon/hepatic flexure. ?Stool studies?lactoferrin, EP, C.Difficile, O/P WNL. Calprotectin, elastase, giardia not run. PCP OV as ED f/u 01.31.2022 with biochemical results TSH H4.77; T4WNL. *[facility] established 02.15.22 following [facility] ED presentation. Marion has had multipleED visits. Clinic presentation she had concern regarding postprandial nausea anddiarrhea with intermittent emesis; feelings of early satiety for several hours resulting in decreased PO intake; left sided abdominal discomfort with frequent stooling with mucous, no blood. Biochemical?CMP, CBC, ESR, HIV, ferritin, LDH, coagulation, AMA, ASM, LEN comp, ANCA, hepatitis, CARLA, AFP, celiac, ceruloplasmin, copper, GAME, haptoglobin, XIOMARA, ammonia without pertinent abnormality. A1c H5.9, CRP H4.50, IBD profile suggestive of Crohn?s without disease stratification (AMCA, ANCA).? LFT AST 33/ALT H92/AP52 Stool studies lactoferrin, elastase WNL.? Calprotectin H137 ?US and elastography 03.07.22?hepatomegaly 21.5cm with fatty infiltration stiffness measures 11.9kPa; pancreatic increased echogenicity. ?Gastric emptying study 03.15.22?time unable to be calculated. Contact with results; start Creon and reglan OV 06.06.22 She continues to have difficulty with nausea and loose stools with reduction of severity and frequency. ROS Const Constitutional: Positive for body ache, fatigue and headache(s); No chills or fever(s) Eyes Eyes: No change in vision ENT ENT: Positive for nasal congestion, nasal discharge, post nasal drip and headache(s); No ear or mastoid pain, sinus pain, neck pain or sore throat Resp Respiratory: Positive for cough; No shortness of breath Cardio Cardiology: No chest pain at rest Gastro GI: Positive for diarrhea Musc Musculoskeletal: No neck pain Skin Skin: No rash Neuro Neurology: Positive for headache(s) Endo Endocrine: Positive for fatigue Exam Const General: cooperative Nutritional Appearance: obese HENMT Head: normal to inspection Ears: TM's normal bilaterally Nose: external nose normal Face and sinus: normal facial exam Mouth: oral mucosae normal Throat: posterior oropharynx normal Neck Lymphatic: no lymphadenopathy noted Resp Effort & Inspection: normal respiratory effort Auscultation: Bilateral: Clear to Auscultation Cardio Rate: regular rate Rhythm: regular rhythm Quality Reporting Tobacco Screening ([facility] 138) Smoking Status: Never smoker Assessment and Plan Assessment and Plan (1) Nausea vomiting and diarrhea: ?Status:?Chronic ?Plan: She will undergo an upper and lower endoscopy to evaluate her upper lower GI tract. The procedure we allow us to place a capsule into her small bowel because she cannot swallow pills. (2) Gastroparesis: ?Status:?Chronic ?Plan: Frequently study shows that she has severe gastroparesis.? She has taken Reglan therapy without any side effects such as tardive dyskinesia but she stopped taking it because she thought it was only a as needed medicine.? Her gastric getting study displayed a time over 500 minutes.? I told her mother that I suspect it is from her psychiatric medicines that she takes on a daily basis forbipolar disorder.? I will give her a scheduled prescription to take 5 mg p.o. 3 times daily for approximately 1 month.? I explained to her that most of the sideeffects such as tardive dyskinesia do occur in people that have pre-existing psychiatric condition to her on pre- existing psychiatric medicines.? However in order to keep her out of the hospital I think we should try and treat her gastroparesis.? We also talked about a gastroparesis diet and other things that she can do on a daily basis including good blood sugar control to promote gastric emptying.? She says that she is having intermittent diarrhea stools are not want to give her Linzess or Amitiza for her nausea vomiting and gastroparesis because it can make her diarrhea worse. ? ? ? Medications: Refilled metoclopramide HCl (Reglan) 5 mg (1/2 x 10 mg) PO BID 21 tabs 0RF na usea and vomiting ? ? Discontinued twskuv-ashpmaon-ihxlyoo 40,000-126,000- 168,000 unit (Zenpep) ?? take three capsules with meals ?? Discontinued Reason:? Order Completed 3 caps? PO TID 189 caps 0RF MARION GUTIERREZ, is a 26 F who presents to the office today for PMH autism, bipolar type 1, PCOS [facility] ED on multiple occasions over the years with N/V, headache, diarrhea, CP. Stool studies for infection have been performed throughout the years with calprotectin, C.Difficile, EP, O/P WNL each time. CT abd/pel ..16?abd pain/diarrhea mild hepatomegaly, homogeneous; splenomegaly; multiple fluid-filled small bowel loops; diverticulosis. Stool 11.11.15?lactoferrin + US RUQ 2.16.16?abd pain hepatomegaly 18.7cm with fatty infiltration. HIDA 4.24.17?EF 88%. When compared to 04.06.15 scan there is continued evidence of duodenal-gastric reflux. GI and hepatology specialists established in 2018 with diarrhea, bloating, abd pain, N/V and diagnosed with IBS-D and GERD. ?[facility] Celiac 12.12.17?without positive findings. EGD 01.03.18?advanced to small bowel noting bile in stomach and mild gastritis. No pathologic changes. US 06.27.?hepatic measurement 18cm with increased echogenicity. ?EGD 09.08.20?advanced to small bowel noting gastritis, mild. Remaining exam without acute/chronic finding. H.Pylori -. ?Colonoscopy 10.08.20?advanced to TI noting internal hemorrhoids without visual abnormality. Without pathologic changes. [facility] ED visits continue as noted above. US RUQ 10..21?abd pain hepatomegaly 19cm with fatty infiltration. US ABD 11.30.21?abd pain hepatomegaly 20.2cm with fatty infiltration; splenomegaly. No ascites. Biochemical workup ?T3, T4, CBC, CMP, TIBC, iron, ferritin, copper, zinc,selenium without pertinent abnormality. ? TSH H4.91 [facility] ED visit prompting referral 01.24.22 with diffuse abdominal pain and diarrhea. She has had issue with diarrhea for many years and has received a diagnosis of IBS- D. Most recent colonoscopy 2020. Discharged without acute concern with cipro/flagyl. ?Biochemical workup?CBC, CMP, lipase without concern. LFT AST H63/ALT H160/ AP57 (AST/ALT ratio 0.39). ?CT abd/pel?diffuse hepatomegaly, normal spleen; wall thickening of right colon/hepatic flexure. ?Stool studies?lactoferrin, EP, C.Difficile, O/P WNL. Calprotectin, elastase, giardia not run. PCP OV as ED f/u 01.31.2022 with biochemical results TSH H4.77; T4WNL. *[facility] established 02.15.22 following [facility] ED presentation. Marion has had multipleED visits. Clinic presentation she had concern regarding postprandial nausea anddiarrhea with intermittent emesis; feelings of early satiety for several hours resulting in decreased PO intake; left sided abdominal discomfort with frequent stooling with mucous, no blood. Biochemical?CMP, CBC, ESR, HIV, ferritin, LDH, coagulation, AMA, ASM, LEN comp, ANCA, hepatitis, CARLA, AFP, celiac, ceruloplasmin, copper, GAME, haptoglobin, XIOMARA, ammonia without pertinent abnormality. A1c H5.9, CRP H4.50, IBD profile suggestive of Crohn?s without disease stratification (AMCA, ANCA).? LFT AST 33/ALT H92/AP52 Stool studies lactoferrin, elastase WNL.? Calprotectin H137 ?US and elastography 03.07.22?hepatomegaly 21.5cm with fatty infiltration stiffness measures 11.9kPa; pancreatic increased echogenicity. ?Gastric emptying study 03.15.22?time unable to be calculated. Contact with results; flaquita Ponce and reglan OV 06.06.22 She continues to have difficulty with nausea and loose stools with reduction of severity and frequency. ROS Const Constitutional: Positive for body ache, fatigue and headache(s); No chills or fever(s) Eyes Eyes: No change in vision ENT ENT: Positive for nasal congestion, nasal discharge, post nasal drip and headache(s); No ear or mastoid pain, sinus pain, neck pain or sore throat Resp Respiratory: Positive for cough; No shortness of breath Cardio Cardiology: No chest pain at rest Gastro GI: Positive for diarrhea Musc Musculoskeletal: No neck pain Skin Skin: No rash Neuro Neurology: Positive for headache(s) Endo Endocrine: Positive for fatigue Exam Const General: cooperative Nutritional Appearance: obese HENMT Head: normal to inspection Ears: TM's normal bilaterally Nose: external nose normal Face and sinus: normal facial exam Mouth: oral mucosae normal Throat: posterior oropharynx normal Neck Lymphatic: no lymphadenopathy noted Resp Effort & Inspection: normal respiratory effort Auscultation: Bilateral: Clear to Auscultation Cardio Rate: regular rate Rhythm: regular rhythm Quality Reporting Tobacco Screening ([facility] 138) Smoking Status: Never smoker Assessment and Plan Assessment and Plan (1) Nausea vomiting and diarrhea: ?Status:?Chronic ?Plan: She will undergo an upper and lower endoscopy to evaluate her upper lower GI tract. The procedure we allow us to place a capsule into her small bowel because she cannot swallow pills. (2) Gastroparesis: ?Status:?Chronic ?Plan: Frequently study shows that she has severe gastroparesis.? She has taken Reglan therapy without any side effects such as tardive dyskinesia but she stopped taking it because she thought it was only a as needed medicine.? Her gastric getting study displayed a time over 500 minutes.? I told her mother that I suspect it is from her psychiatric medicines that she takes on a daily basis forbipolar disorder.? I will give her a scheduled prescription to take 5 mg p.o. 3 times daily for approximately 1 month.? I explained to her that most of the sideeffects such as tardive dyskinesia do occur in people that have pre-existing psychiatric condition to her on pre- existing psychiatric medicines.? However in order to keep her out of the hospital I think we should try and treat her gastroparesis.? We also talked about a gastroparesis diet and other things that she can do on a daily basis including good blood sugar control to promote gastric emptying.? She says that she is having intermittent diarrhea stools are not want to give her Linzess or Amitiza for her nausea vomiting and gastroparesis because it can make her diarrhea worse. ? ? ? Medications: Refilled metoclopramide HCl (Reglan) 5 mg (1/2 x 10 mg) PO BID 21 tabs 0RF na usea and vomiting ? ? Discontinued emjjkf-rbowsgks-erfcyps 40,000-126,000- 168,000 unit (Zenpep) ?? take three capsules with meals ?? Discontinued Reason:? Order Completed 3 caps? PO TID 189 caps 0RF I have examined the patient and the H&P has been reviewed. There are no clinicalchanges since date of exam. 08/08/22 1427 <Electronically signed by Andreas Oliva DO> Cosigner Signature (if applicable): CC: Andreas Oliva DO; [facility]~ Signed [facility] Work Phone: Hospital Discharge instructions Additional Instructions Your CT showed some colitis on the right which is consistent with your pain. Please follow-up with your GI doctor. You been placed on a course of antibiotics.[facility] Work Phone: Hospital Discharge instructions Additional Instructions Call your primary care physician tomorrow for further instructions on your Victoza.[facility] Work Phone: Hospital Discharge instructions Additional Instructions Continue your Reglan as needed. Small amounts of water to keep yourself hydrated.[facility] Work Phone: Hospital Discharge instructions Additional Instructions Today you had a negative cardiac workup. Please continue to follow-up outpatient. Negative chest x-ray, troponin, D-dimer. Please return for any worsening symptomsW[facility] Work Phone: Hospital Discharge instructions Additional Instructions Follow-up your doctor in outpatient setting. Return with worsening symptoms or concerns. Your CT today did not show anything surgical. Use the prescriptions are sent to your pharmacy as prescribed.[facility] Work Phone: Hospital Discharge instructions Additional Instructions Follow with your primary care physician outpatient setting. Return with worsening symptoms or concerns. Chest x-ray is normal and your blood work was normal. Use your Reglan that you have at home for nausea and vomiting.[facility] Work Phone: Reason for referral (narrative)No reason for referral information availableWMartin Memorial Hospital Work Phone: Summary Purpose Family History No Family History Records Found Relationship Condition Age at Onset Recorded Date/T harjeet Not Specified Diabetes mellitus Unknown Depression Unknown Cardiac disease Unknown Hyperlipidemia Unknown Gastroesophageal reflux disease Unknown Hypertension Unknown Asthma Unknown mother Malignant neoplasm of uterus Unknown Advance Directives No Advanced Directives Records Found Advance Directive Response Recorded Date/ Time Living Will No January 18 021 9:17pm Power of Stave Bolt Equalizer No January 18, 2021 9:17pm Advance Directive Response Recorded Date/ Time Living Will No August 16, 2021 8:30pm Power of Stave Bolt Equalizer No August 16 8:30pm Advance Directive Response Recorded Date/ Time Living Will No August 29, 2021 8:19pm Power of Stave Bolt Equalizer No August 29 8:19pm Advance Directive Response Recorded Date/ Time Living Will No September 03, 2021 11:58am Power of Stave Bolt Equalizer No September 03 11:58am Advance Directive Response Recorded Date/ Time Living Will No September 10, 2021 2:46am Power of Stave Bolt Equalizer No September 10 2:46am Advance Directive Response Recorded Date/ Time Living Will No January 24 8:04pm Power of Stave Bolt Equalizer No January 24, 2022 8:04pm Advance Directive Response Recorded Date/ Time Living Will No August 04, 2022 10:54am Power of Stave Bolt Equalizer No August 04 3 10:54am Advance Directive Response Recorded Date/ Time Living Will No August 15, 2022 7:13pm Power of Stave Bolt Equalizer No August 15 7:13pm Advance Directive Response Recorded Date/ Time Living Will No November 22 9:47pm Power of Stave Bolt Equalizer No November 22 9:47pm Advance Directive Response Recorded Date/ Time Living Will No December 09 8:10pm Power of Stave Bolt Equalizer No December 09, 2022 8:10pm Advance Directive Response Recorded Date/ Time Living Will No December 18 5:01pm Power of Stave Bolt Equalizer No December 18, 2022 5:01pm Advance Directive Response Recorded Date/ Time Living Will No December 18 7:24pm Power of Stave Bolt Equalizer No December 18, 2022 7:24pm Advance Directive Response Recorded Date/ Time Living Will No December 18 6:24pm Power of Stave Bolt Equalizer No December 18, 2022 6:24pm Advance Directive Response Recorded Date/ Time Living Will No April 07 024 4:17pm Power of Stave Bolt Equalizer No April 07, 2023 4:17pm Advance Directive Response Recorded Date/ Time Living Will No May 08, 2023 2:47pm Power of Stave Bolt Equalizer No May 07 2:47pm Advance Directive Response Recorded Date/ Time Living Will No June 03, 2023 8:45pm Power of Stave Bolt Equalizer No June 02 8:45pm Advance Directive Response Recorded Date/ Time Living Will No November 26 10:03pm Power of Stave Bolt Equalizer No November 26 024 10:03pm Advance Directive Response Recorded Date/ Time Living Will No November 26 10:03pm Do you have a Healthcare Power of Stave Bolt Equalizer? No November 27, 2023 10:03pm Living Will No May 08, 2024 3:41pm Do you have a Healthcare Power of Stave Bolt Equalizer? No May 08, 2024 3:41pm Advance Directive Response Recorded Date/ Time Living Will No May 08, 2024 3:41pm Do you have a Healthcare Power of Stave Bolt Equalizer? No May 08, 2024 3:41pm Living Will No May 14, 2024 10:34pm Do you have a Healthcare Power of Stave Bolt Equalizer? No May 14, 2024 10:34pm Advance Directive Response Recorded Date/ Time Living Will No May 08, 2024 3:41pm Do you have a Healthcare Power of Stave Bolt Equalizer? No May 08, 2024 3:41pm Living Will No May 14, 2024 10:34pm Do you have a Healthcare Power of Stave Bolt Equalizer? No May 14, 2024 10:34pm Living Will No June 03, 2024 8:41am Do you have a Healthcare Power of Stave Bolt Equalizer? No June 03, 2024 8:41am Advance Directive Response Recorded Date/ Time Living Will No July 10, 2023 9 :36am Do you have a Healthcare Power of Stave Bolt Equalizer? No July 10, 2023 9:36am Living Will No May 08, 2024 3:41pm Do you have a Healthcare Power of Stave Bolt Equalizer? No May 08, 2024 3:41pm Living Will No May 14, 2024 10:34pm Do you have a Healthcare Power of Stave Bolt Equalizer? No May 14, 2024 10:34pm Living Will No June 03, 2024 8:41am Do you have a Healthcare Power of Stave Bolt Equalizer? No June 03, 2024 8:41am Chief Complaint and Reason for Visit Chief Complaint Admit Date 3 M FU January 14, 2024 2:29pm N/V May 08, 2024 2:3 6pm Reason for Visit Admit Date Palpitations January 14, 2024 2:29pm Syncope January 14, 2024 2:29pm Hypertension January 14, 2024 2:29pm Chief Complaint Annual (ASSISTANT SPEECH LANGUAGE PATHOLOGIST) LEG Reason for Visit Dysmenorrhea Hirsutism Oligomenorrhea Hypertension Encounter for routine gynecological examination Chief Complaint Annual (ASSISTANT SPEECH LANGUAGE PATHOLOGIST) LEG HEADACHE Reason for Visit Dysmenorrhea Hirsutism Oligomenorrhea Hypertension Encounter for routine gynecological examination Chief Complaint Annual (ASSISTANT SPEECH LANGUAGE PATHOLOGIST) LEG HEADACHE NAUEA/VOMITING Reason for Visit Dysmenorrhea Hirsutism Oligomenorrhea Hypertension Encounter for routine gynecological examination Chief Complaint Annual (ASSISTANT SPEECH LANGUAGE PATHOLOGIST) LEG HEADACHE NAUEA/VOMITING SI Reason for Visit Dysmenorrhea Hirsutism Oligomenorrhea Hypertension Encounter for routine gynecological examination Chief Complaint Annual (ASSISTANT SPEECH LANGUAGE PATHOLOGIST) LEG HEADACHE NAUEA/VOMITING SI pap exam, med check Reason for Visit Dysmenorrhea Hirsutism Oligomenorrhea Hypertension Encounter for routine gynecological examination Dysmenorrhea Hirsutism Oligomenorrhea Chief Complaint HEADACHE NAUEA/VOMITING SI pap exam, med check ANEMIA SUDDEN VISSION LOSS Reason for Visit Dysmenorrhea Hirsutism Oligomenorrhea Chief Complaint pap exam, med check ANEMIA SUDDEN VISSION LOSS chest pain diarrhea Reason for Visit Dysmenorrhea Hirsutism Oligomenorrhea Chief Complaint ANEMIA SUDDEN VISSION LOSS chest pain diarrhea Chief Complaint ANEMIA SUDDEN VISSION LOSS chest pain diarrhea ER FU 2 ORDERING NAVDEEP Reason for Visit Nausea vomiting and diarrhea Chief Complaint ANEMIA SUDDEN VISSION LOSS chest pain diarrhea ER FU 2 ORDERING '[place] 2 ORDERING DOCTORS/E ORDER vaginal pain/no menses NAUSEA NAUSEA Reason for Visit Nausea vomiting and diarrhea Oligomenorrhea Vaginitis Chief Complaint SUDDEN VISSION LOSS chest pain diarrhea ER FU 2 ORDERING NAVDEEP 2 ORDERING DOCTORS/E ORDER vaginal pain/no menses NAUSEA NAUSEA Reason for Visit Nausea vomiting and diarrhea Oligomenorrhea Vaginitis Chief Complaint 3 MO FU Reason for Visit Gastroparesis Nausea vomiting and diarrhea Chief Complaint 3 MO FU ABD PAIN Reason for Visit Gastroparesis Nausea vomiting and diarrhea Chief Complaint ABD PAIN 2 WK FU CROHN'S DISEASE Annual (ASSISTANT SPEECH LANGUAGE PATHOLOGIST) CHRONIC MIGRAINE Reason for Visit Crohn's disease Gastroparesis Nausea vomiting and diarrhea Dysmenorrhea Hirsutism Oligomenorrhea Encounter for routine gynecological examination Hydradenitis Chief Complaint ABD PAIN 2 WK FU CROHN'S DISEASE Annual (ASSISTANT SPEECH LANGUAGE PATHOLOGIST) CHRONIC MIGRAINE HYPOGLYCEMIA Reason for Visit Crohn's disease Gastroparesis Nausea vomiting and diarrhea Dysmenorrhea Hirsutism Oligomenorrhea Encounter for routine gynecological examination Hydradenitis Chief Complaint ABD PAIN 2 WK FU CROHN'S DISEASE Annual (ASSISTANT SPEECH LANGUAGE PATHOLOGIST) CHRONIC MIGRAINE HYPOGLYCEMIA N/V/D, SYNCOPE, HYPOTENSION Reason for Visit Crohn's disease Gastroparesis Nausea vomiting and diarrhea Dysmenorrhea Hirsutism Oligomenorrhea Encounter for routine gynecological examination Hydradenitis Chief Complaint 2 WK FU CROHN'S DISEASE Annual (ASSISTANT SPEECH LANGUAGE PATHOLOGIST) CHRONIC MIGRAINE HYPOGLYCEMIA N/V/D, SYNCOPE, HYPOTENSION Reason for Visit Crohn's disease Gastroparesis Nausea vomiting and diarrhea Dysmenorrhea Hirsutism Oligomenorrhea Encounter for routine gynecological examination Hydradenitis Chief Complaint 2 WK FU CROHN'S DISEASE Annual (ASSISTANT SPEECH LANGUAGE PATHOLOGIST) CHRONIC MIGRAINE HYPOGLYCEMIA N/V/D, SYNCOPE, HYPOTENSION SYNCOPE Reason for Visit Crohn's disease Gastroparesis Nausea vomiting and diarrhea Dysmenorrhea Hirsutism Oligomenorrhea Encounter for routine gynecological examination Hydradenitis Cellulitis Syncope Chief Complaint 2 WK FU CROHN'S DISEASE Annual (ASSISTANT SPEECH LANGUAGE PATHOLOGIST) CHRONIC MIGRAINE HYPOGLYCEMIA N/V/D, SYNCOPE, HYPOTENSION Syncope Syncope SYNCOPE Syncope Reason for Visit Crohn's disease Gastroparesis Nausea vomiting and diarrhea Dysmenorrhea Hirsutism Oligomenorrhea Encounter for routine gynecological examination Hydradenitis Cellulitis Syncope Chief Complaint CHRONIC MIGRAINE HYPOGLYCEMIA N/V/D, SYNCOPE, HYPOTENSION SYNCOPE Syncope Syncope Syncope WEAKNESS,SYNCOPE RX HERE 5 MO FU E-ORDER FATTY LIVER Reason for Visit Syncope Crohn's disease Fatty liver Gastroparesis Nausea vomiting and diarrhea Chief Complaint N/V/D, SYNCOPE, HYPO TENSION SYNCOPE Syncope Syncope Syncope WEAKNESS,SYNCOPE RX HERE 5 MO FU E-ORDER FATTY LIVER Diabetes/Hypoglycemia MENTAL HEALTH Reason for Visit Syncope Crohn's disease Fatty liver Gastroparesis Nausea vomiting and diarrhea Bipolar 1 disorder Diabetes Obesity Chief Complaint WEAKNESS,SYNCOPE RX HERE 5 MO FU E-ORDER FATTY LIVER Diabetes/Hypoglycemia MENTAL HEALTH Dizziness Reason for Visit Crohn's disease Fatty liver Gastroparesis Nausea vomiting and diarrhea Bipolar 1 disorder Diabetes Obesity Chief Complaint FATTY LIVER Diabetes/Hypoglycemia MENTAL HEALTH Dizziness chest pain Reason for Visit Bipolar 1 disorder Diabetes Obesity Chief Complaint CHRONIC MIGRAINE HYPOGLYCEMIA N/V/D, SYNCOPE, HYPOTENSION SYNCOPE Syncope Syncope Syncope WEAKNESS,SYNCOPE RX HERE 5 MO FU E-ORDER Reason for Visit Syncope Crohn's disease Fatty liver Gastroparesis Nausea vomiting and diarrhea Chief Complaint Admit Date 3 M FU January 14, 2024 2:29pm Chief Complaint Admit Date N/V May 08, 2024 2:3 6pm CHEST PAIN May 14, 2024 8:4 6pm Chief Complaint Admit Date N/V May 08, 2024 2:3 6pm CHEST PAIN May 14, 2024 8:4 6pm 6 M FU May 29, 2024 2:3 2pm HEADACHE June 02, 2024 7:2 5pm Reason for Visit Admit Date Palpitations May 29, 2024 2:3 2pm Syncope May 29, 2024 2:3 2pm Hypertension May 29, 2024 2:3 2pm Chief Complaint Admit Date N/V May 08, 2024 2:3 6pm CHEST PAIN May 14, 2024 8:4 6pm 6 M FU May 29, 2024 2:3 2pm HEADACHE June 02, 2024 7:2 5pm RUQ PAIN June 03, 2024 7:1 8am HEADACHE, June 03, 2024 8:3 3am Chief Complaint Admit Date N/V May 08, 2024 2:3 6pm CHEST PAIN May 14, 2024 8:4 6pm 6 M FU May 29, 2024 2:3 2pm HEADACHE June 02, 2024 7:2 5pm RUQ PAIN June 03, 2024 7:1 8am HEADACHE, June 03, 2024 8:3 3am palpitations June 05, 2024 6:3 6am BP IN RT ARM MUCH GREATER THAN LT ARM Ma y 2024 9:41am Chief Complaint Admit Date N/V May 08, 2024 2:3 6pm CHEST PAIN May 14, 2024 8:4 6pm 6 M FU May 29, 2024 2:3 2pm HEADACHE June 02, 2024 7:2 5pm RUQ PAIN June 03, 2024 7:1 8am HEADACHE, June 03, 2024 8:3 3am palpitations June 05, 2024 6:3 6am 30 DAY MONITOR June 05, 2024 8:0 0am BP IN RT ARM MUCH GREATER THAN LT ARM [facility] 2024 9:41am 1 Y FU July 08, 2024 9:56a m Chief Complaint Admit Date N/V May 08, 2024 2:3 6pm CHEST PAIN May 14, 2024 8:4 6pm 6 M FU May 29, 2024 2:3 2pm HEADACHE June 02, 2024 7:2 5pm RUQ PAIN June 03, 2024 7:1 8am HEADACHE, June 03, 2024 8:3 3am palpitations June 05, 2024 6:3 6am 30 DAY MONITOR June 05, 2024 8:0 0am BP IN RT ARM MUCH GREATER THAN LT ARM Dc y 2024 9:41am 1 Y FU July 08, 2024 9:56a m 2 M FU July 24, 2024 1:29p m Reason for Visit Admit Date Palpitations May 29, 2024 2:3 2pm Syncope May 29, 2024 2:3 2pm Hypertension May 29, 2024 2:3 2pm Palpitations July 08, 2024 9:56a m Crohn's disease July 08, 2024 9:56a m Fatty liver July 08, 2024 9:56a m Gastroparesis July 08, 2024 9:56a m Nausea vomiting and diarrhea July 08, 2 025 9:56am Palpitations July 24, 2024 1:29p m Syncope July 24, 2024 1:29p m Hypertension July 24, 2024 1:29p m Chief Complaint Admit Date N/V May 08, 2024 2:3 6pm CHEST PAIN May 14, 2024 8:4 6pm 6 M FU May 29, 2024 2:3 2pm HEADACHE June 02, 2024 7:2 5pm RUQ PAIN June 03, 2024 7:1 8am HEADACHE, June 03, 2024 8:3 3am palpitations June 05, 2024 6:3 6am 30 DAY MONITOR June 05, 2024 8:0 0am BP IN RT ARM MUCH GREATER THAN LT ARM Ma y 2024 9:41am 1 Y FU July 08, 2024 9:56a m 2 M FU July 24, 2024 1:29p m LESION ON LIVER August 07, 2024 1:11 pm Reason for Referral Specialty Diagnoses / Procedures Referred By Contac t Referred To Contact Diagnoses PCOS (polycystic ovarian syndrome) Obesity, Class III, BMI 40-49.9 (morbid obesity) (HCC) Procedures ENDOCRINOLOGY DIETITIAN VISIT (MNT) MEDICAL NUTRITION ASSMT&IVNTJ INDIV EACH 15 KS MEDICAL NUTRITION ASSMT&IVNTJ INDIV EACH 15 [place] MEDICAL NUTRITION ASSMT&IVNTJ INDIV EACH 15 [place] MEDICAL NUTRITION ASSMT&IVNTJ INDIV EACH 15 [place] Jey Johnson MD [address] [place] [address] Referral ID Status Reason Start Date Expiration Date Visits Requested Visits Authorized [id number] Authorized PCP Requested Referral 01/07/2025 1 1 Additional Source Comments INFORMATION SOURCE (unrecogn ized section and content) DATE CREATED AUTHOR 08/14/2017 [facility] DATE CREATED AUTHOR AUTHOR'S ORGANIZ ATION 08/14/2017 [facility] DATE CREATED AUTHOR AUTHOR'S ORGANIZ ATION 02/16/2021 [facility] dical Specialist DATE CREATED AUTHOR AUTHOR'S ORGANIZ ATION 12/19/2022 [facility] ([place]) DATE CREATED AUTHOR AUTHOR'S ORGANIZ ATION 04/18/2023 [facility] DATE CREATED AUTHOR AUTHOR'S ORGANIZ ATION 01/02/2024 [facility] EPIC DATE CREATED AUTHOR AUTHOR'S ORGANIZ ATION 05/17/2024 [facility] DATE CREATED AUTHOR AUTHOR'S ORGANIZ ATION 08/15/2024 [facility] DATE CREATED AUTHOR AUTHOR'S ORGANIZ ATION 08/30/2024 [facility] Goals (unrecognized section and content) Goals may be documented in a n alternate section Source Comments (unrecognize d section and content) In the event this informatio n is protected by the Federal Confidentiality of Alcohol and Drug Abuse Patient Records regulations: The Federal rules restrict any use of the information to criminally investigate or prosecute any alcohol or drug abuse patient.[facility] Center[facility] the event this information is protected by the Federal Confidentiality of Alcohol and Drug Abuse Patient Records regulations: The Federal rules restrict any use of the information to criminally investigate or prosecute any alcohol or drug abuse patient.[facility] CenterIn the event this information is protected by the Federal Confidentiality of Alcohol and Drug Abuse Patient Records regulations: The Federal rules restrict any use of the information to criminally investigate or prosecute any alcohol or drug abuse patient.[facility] CenterIn the event this information is protected by the Federal Confidentiality of Alcohol and Drug Abuse Patient Records regulations: The Federal rules restrict any use of the information to criminally investigate or prosecute any alcohol or drug abuse patient.[facility] CenterIn the event this information is protected by the Federal Confidentiality of Alcohol and Drug Abuse Patient Records regulations: The Federal rules restrict any use of the information to criminally investigate or prosecute any alcohol or drug abuse patient.[facility] CenterIn the event this information is protected by the Federal Confidentiality of Alcohol and Drug Abuse Patient Records regulations: The Federal rules restrict any use of the information to criminally investigate or prosecute any alcohol or drug abuse patient.[facility] CenterIn the event this information is protected by the Federal Confidentiality of Alcohol and Drug Abuse Patient Records regulations: The Federal rules restrict any use of the information to criminally investigate or prosecute any alcohol or drug abuse patient.[facility] CenterIn the event this information is protected by the Federal Confidentiality of Alcohol and Drug Abuse Patient Records regulations: The Federal rules restrict any use of the information to criminally investigate or prosecute any alcohol or drug abuse patient.[facility] CenterIn the event this information is protected by the Federal Confidentiality of Alcohol and Drug Abuse Patient Records regulations: The Federal rules restrict any use of the information to criminally investigate or prosecute any alcohol or drug abuse patient.[facility] CenterIn the event this information is protected by the Federal Confidentiality of Alcohol and Drug Abuse Patient Records regulations: The Federal rules restrict any use of the information to criminally investigate or prosecute any alcohol or drug abuse patient.[facility] CenterIn the event this information is protected by the Federal Confidentiality of Alcohol and Drug Abuse Patient Records regulations: The Federal rules restrict any use of the information to criminally investigate or prosecute any alcohol or drug abuse patient.[facility] CenterIn the event this information is protected by the Federal Confidentiality of Alcohol and Drug Abuse Patient Records regulations: The Federal rules restrict any use of the information to criminally investigate or prosecute any alcohol or drug abuse patient.[facility] CenterIn the event this information is protected by the Federal Confidentiality of Alcohol and Drug Abuse Patient Records regulations: The Federal rules restrict any use of the information to criminally investigate or prosecute any alcohol or drug abuse patient.[facility] CenterIn the event this information is protected by the Federal Confidentiality of Alcohol and Drug Abuse Patient Records regulations: The Federal rules restrict any use of the information to criminally investigate or prosecute any alcohol or drug abuse patient.[facility] CenterIn the event this information is protected by the Federal Confidentiality of Alcohol and Drug Abuse Patient Records regulations: The Federal rules restrict any use of the information to criminally investigate or prosecute any alcohol or drug abuse patient.[facility] CenterIn the event this information is protected by the Federal Confidentiality of Alcohol and Drug Abuse Patient Records regulations: The Federal rules restrict any use of the information to criminally investigate or prosecute any alcohol or drug abuse patient.[facility] CenterIn the event this information is protected by the Federal Confidentiality of Alcohol and Drug Abuse Patient Records regulations: The Federal rules restrict any use of the information to criminally investigate or prosecute any alcohol or drug abuse patient.[facility] CenterIn the event this information is protected by the Federal Confidentiality of Alcohol and Drug Abuse Patient Records regulations: The Federal rules restrict any use of the information to criminally investigate or prosecute any alcohol or drug abuse patient.[facility] CenterIn the event this information is protected by the Federal Confidentiality of Alcohol and Drug Abuse Patient Records regulations: The Federal rules restrict any use of the information to criminally investigate or prosecute any alcohol or drug abuse patient.[facility] CenterIn the event this information is protected by the Federal Confidentiality of Alcohol and Drug Abuse Patient Records regulations: The Federal rules restrict any use of the information to criminally investigate or prosecute any alcohol or drug abuse patient.[facility] CenterIn the event this information is protected by the Federal Confidentiality of Alcohol and Drug Abuse Patient Records regulations: The Federal rules restrict any use of the information to criminally investigate or prosecute any alcohol or drug abuse patient.[facility] CenterIn the event this information is protected by the Federal Confidentiality of Alcohol and Drug Abuse Patient Records regulations: The Federal rules restrict any use of the information to criminally investigate or prosecute any alcohol or drug abuse patient.[facility] CenterIn the event this information is protected by the Federal Confidentiality of Alcohol and Drug Abuse Patient Records regulations: The Federal rules restrict any use of the information to criminally investigate or prosecute any alcohol or drug abuse patient.[facility] Care Teams (unrecognized sec tion and content) Team Status: Active Member Role Status Dates Naina Da Silva VSC, SR. MANAGER CORPORATE COMMUNICATIONS-C Primary Care Provider Activ e Team Status: Inactive Member Role Status Dates Naina SANTOSC, SR. MANAGER CORPORATE COMMUNICATIONS-C Primary Care Provider Activ e Start: January 14, 2024 End: January 14, 2024 Naina Da Silva VSC, SR. MANAGER [employer]PORATE COMM[employer]ICATIONS-C Referring Provider Active Start: January 14, 2024 End: January 14, 2024 Dr. Marco Bartlett MD Attending Provider Active Start: January 14, 2024 End: January 14, 2024 Team Status: Inactive Member Role Status Dates Naina Da Silva VSC, SR. MANAGER [employer]PORATE COMM[employer]ICATIONS-C Primary Care Provider Activ e Start: February 05, 2024 End: February 05, 2024 Zebulun Beam VSC, SR. MANAGER CORPORATE COMMUNICATIONS-C Attending Provider Active Start: February 05, 2024 End: February 05, 2024 Team Status: Inactive Member Role Status Dates Naina Da Silva VSC, SR. MANAGER [employer]PORATE COMM[employer]ICATIONS-C Primary Care Provider Activ e Start: April 22, 2024 End: April 22, 2024 Zebulun Beam VSC, SR. MANAGER CORPORATE COMMUNICATIONS-C Attending Provider Active Start: April 22, 2024 End: April 22, 2024 Team Status: Active Member Role Status Dates Naina Da Silva VSC, SR. MANAGER CORPORATE COMMUNICATIONS-C Primary Care Provider Activ e Start: May 07, 2024 Zebulun Beam VSC, SR. MANAGER CORPORATE COMMUNICATIONS-C Attending Provider Active Start: May 07, 2024 Team Status: Inactive Member Role Status Dates Naina Da Silva VSC, SR. MANAGER CORPORATE COMM[employer]ICATIONS-C Primary Care Provider Activ e Start: May 08, 2024 End: May 08, 2024 Dr. Stan Lin DO Referring Provider Active Start: May 08, 2024 End: May 08, 2024 Dr. Stan Lin DO Emergency Provider Active Start: May 08, 2024 End: May 08, 2024 Corporate Legal Intern Relationship Specialty Start Date End Date Crys Obrien PCP - General Family Practice 01/13/19 Chris Carter, DO Family Practice 06/15/16 [employer] Legal Intern Relationship Specialty Start Date End Date Crys Obrien PCP - General Family Medicine 01/13/19 Chris Carter, DO Family Medicine 06/15/16 Team Status: Active Member Role Status Dates [facility] Family Provider Active [facility] Primary Care Provider A ctive Team Status: Inactive Member Role Status [facility] Primary Care Provider, Referring Provider Active Dr. Andreas Oliva DO Attending Provider Active Team Status: Inactive Member Role Status [facility] Primary Care Provider, Referring Provider Active Zeus Miller SR. MANAGER CORPORATE COMMUNICATIONS, SR. MANAGER CORPORATE COMMUNICATIONS-C Attending Provider Active Team Status: Inactive Member Role Status Dates [facility] Primary Care Provider A ctive WILLIAMS GREGORIO Attending Provider, Referring Provider Active Team Status: Inactive Member Role Status [facility] Primary Care Provider A ctive Dr. Clay Causey MD Attending Provider, Referring Provider Active Vani Carlson NP-C Other Provider Active Karina Guerra SR. MANAGER CORPORATE COMMUNICATIONS, SR. MANAGER CORPORATE COMMUNICATIONS-C Other Provider Active Team Status: Inactive Member Role Status [facility] Primary C are Provider, Attending Provider, Referring Provider Active Naina Da Silva SR. MANAGER [employer]PORATE COMMUNICATIONS, SR. MANAGER CORPORATE COMMUNICATIONS-C Other Provider Active Team Status: Inactive Member Role Status [facility] Primary Care Provider A ctive Dr. Martin Pace DO Attending Provider, Emergency P rovider Active Team Status: Inactive Member Role Status [facility] Primary Care Provider A ctive Dr. Coni Angelo , Attending Provider, Emergency P rovider Active Team Status: Inactive Member Role Status [facility] Primary Care Provider A ctive Dr. Andreas Oliva DO Attending Provider, Referring Provider Active Zeus Miller SR. MANAGER CORPORATE COMMUNICATIONS, SR. MANAGER CORPORATE COMMUNICATIONS-C Other Provider Active Team Status: Inactive Member Role Status [facility] Primary Care Provider A ctive Dr. Andreas Oliva DO Attending Provider, Referring Provider Active Team Status: Active Member Role Status [facility] Primary Care Provider A ctive Dr. Andreas Oliva DO Attending Provider, Referring Provider Active Team Status: Inactive Member Role Status [facility] Primary Care Provider A ctive Karina Guerra SR. MANAGER CORPORATE COMMUNICATIONS, SR. MANAGER CORPORATE COMMUNICATIONS-C Attending Provider, Referring Provider Active Zeus Miller SR. MANAGER CORPORATE COMMUNICATIONS, SR. MANAGER CORPORATE COMMUNICATIONS-C Other Provider Active Team Status: Active Member Role Status [facility] Primary Care Provider A ctive Dr. Andreas Oliva DO Attending Provid er, Referring Provider, Other Provider Active Team Status: Inactive Member Role Status Dates [facility] Primary Care Provider A ctive Dr. David Etienne DO Emergency Provider Active Team Status: Inactive Member Role Status Dates [facility] Primary Care Provider A ctive Dr. David Etienne DO Attending Provider, Emergency Provider Active Team Status: Inactive Member Role Status Dates [facility] Primary Care Provider A ctive Dr. Andreas Oliva DO Attending Provider, Referring Provider Active Naina Da Silva SR. MANAGER CORPORATE COMMUNICATIONS, SR. MANAGER CORPORATE COMMUNICATIONS-C Other Provider Active Team Status: Inactive Member Role Status Dates [facility] Primary Care Provider A ctive Dr. Nolan Lo MD Attending Provider, Referring Provider Active Team Status: Inactive Member Role Status [facility] Primary Care Provider A ctive Zeus Miller SR. MANAGER CORPORATE COMMUNICATIONS, SR. MANAGER CORPORATE COMMUNICATIONS-C Attending Provider, Referring Provider Active Team Status: Inactive Member Role Status [facility] Primary Care Provider A ctive Dr. Ozzy Bright DO Emergency Provider Active Team Status: Inactive Member Role Status [facility] Primary Care Provider A ctive Dr. Ozzy Bright DO Attending Provider, Emergency P [facility] Active Team Status: Inactive Member Role Status [facility] Primary Care Provider A ctive Rodolfo Das MD Emergency Provider Active Team Status: Inactive Member Role Status [facility] Primary Care Provider A ctive Rodolfo Das MD Attending Provider, Emergency Provid er Active Team Status: Active Member Role Status [facility] Primary Care Provider A ctive Dr. Sarah Purdy MD Emergency Provider Active Dr. [place] Wisdom DO Admit Provider, Attending Pro vider Active Team Status: Active Member Role Status Dates [facility] Primary Care Provider A ctive Dr. Sarah Purdy MD Emergency Provider Active Dr. [place] Wisdom DO Admit Provider, Attending Provider, Other Provider Active Team Status: Active Member Role Status [facility] Primary Care Provider A ctive Dr. Garrick Mcgowan MD Attending Provider Active Team Status: Active Member Role Status [facility] Primary Care Provider A ctive Dr. Sarah Purdy MD Emergency Provider Active Dr. [place] Wisdom DO Admit Provider, Other Provide r Active Dr. Laura Li MD Attending Provider, Other Provid er Active Team Status: Inactive Member Role Status Dates [facility] Primary Care Provider A ctive Dr. Sarah Purdy MD Emergency Provider Active Dr. Montana Wisdom , Admit Provider, Other Provide r Active Dr. Laura Li MD Attending Provider Active Team Status: Active Member Role Status Dates [facility] Family Provider Active Naina Da Silva SR. MANAGER CORPORATE COMMUNICATIONS, SR. MANAGER CORPORATE COMMUNICATIONS-C Primary Care Provider Active Team Status: Inactive Member Role Status Dates Naina Da Silva SR. MANAGER CORPORATE COMMUNICATIONS, SR. MANAGER CORPORATE COMMUNICATIONS-C Primary Care Provider Active Dr. Laura Li MD Attending Provider, Referring Pr ovider Active Team Status: Inactive Member Role Status Dates Naina Da Silva SR. MANAGER CORPORATE COMMUNICATIONS, SR. MANAGER CORPORATE COMMUNICATIONS-C Primary Care Provider Active Dr. Andreas Oliva DO Attending Provider, Referring Provider Active Team Status: Inactive Member Role Status Dates [facility] Referring Provider Acti ve Dr. Hubert Mo MD Attending Provider Active Naina Da Silva SR. MANAGER CORPORATE COMMUNICATIONS, SR. MANAGER CORPORATE COMMUNICATIONS-C Primary Care Provider Active Team Status: Inactive Member Role Status Dates Naina Da Silva SR. MANAGER CORPORATE COMMUNICATIONS, SR. MANAGER CORPORATE COMMUNICATIONS-C Primary Care Provider Active Dr. Bridger Kamara DO Emergency Provider Active Team Status: Inactive Member Role Status Dates Naina Da Silva SR. MANAGER CORPORATE COMMUNICATIONS, SR. MANAGER CORPORATE COMMUNICATIONS-C Primary Care Provider Active Dr. Bridger Kamara DO Attending Provider, Emergency P gerard Active Team Status: Inactive Member Role Status Dates Naina Da Silva SR. MANAGER CORPORATE COMMUNICATIONS, SR. MANAGER CORPORATE COMMUNICATIONS-C Primary Care Provider Active Dr. Sarah Purdy MD Emergency Provider Active [employer] Intern Relationship Specialty Start Date End Date [facility], [facility] [address] [place] [address] PCP - General 05/08/23 Chris Carter DO Family Medicine 06/15/16 Team Status: Inactive Member Role Status Dates Naina Da Silva SR. MANAGER CORPORATE COMMUNICATIONS, SR. MANAGER CORPORATE COMMUNICATIONS-C Primary Care Provider Active Dr. Sarah Purdy MD Attending Provider, Emergency Provider Active Team Status: Inactive Member Role Status Dates Naina Da Silva SR. MANAGER CORPORATE COMMUNICATIONS, SR. MANAGER CORPORATE COMMUNICATIONS-C Primary Care Provider Active Rodolfo Das MD Emergency Provider Active [employer] Intern Relationship Specialty Start Date End Date [facility], [facility] PCP - General 05/08/23 Chris Carter, DO Family Medicine 06/15/16 Naina Da Silva NP [address] [place] [address] Referring Family Medicine 09/05/23 [employer] Legal Intern Relationship Specialty Start Date End Date [facility] Daniel Kelsy PCP - General 05/08/23 Chris Carter, DO Family Medicine 06/15/16 Naina Da Silva NP [address] [place] [address] Referring Family Medicine 09/05/23 [employer] Intern Relationship Specialty Start Date End Date [facility], [facility] Tierney PCP - General 05/08/23 Chris Carter, DO Family Medicine 06/15/16 Naina Da Silva NP [address] [place] [address] Referring Family Medicine 09/05/23 Corporate Legal Intern Relationship Specialty Start Date End Date Crys Obrien, FISH PCP - General Family Medicine 01/13/19 05/07/23 Chris Carter, DO Family Medicine 06/15/16 [employer] Legal Intern Relationship Specialty Start Date End Date Unallocated, [place] [place], [id number] [address] PCP - General 07/31/22 Stefania Lake, SR. MANAGER CORPORATE COMMUNICATIONS [address] [place], [place] [address] PCP - [facility] 08/20/23 Corporate Legal Intern Relationship Specialty Start Date End Date Unallocated, N[facility] MD [facility] [place] [address] PCP - General 07/31/22 Stefania Lake, SR. MANAGER CORPORATE COMMUNICATIONS [address] [place] [address] PCP - [facility] 08/20/23 Corporate Legal Intern Relationship Specialty Start Date End Date Unallocated, N[facility] MD [facility] [place] [address] PCP - General 07/31/22 Stefania Lake, SR. MANAGER CORPORATE COMMUNICATIONS [facility] [place] [address] PCP - [facility] 08/20/23 Corporate Legal Intern Relationship Specialty Start Date End Date Clinic, [facility] Tierney PCP - General 05/08/23 Chris Carter, Family Medicine 06/15/16 Naina Da Silva NP [address] [place] [address] Referring Family Medicine 09/05/23 [employer] Legal Intern Relationship Specialty Start Date End Date Clinic, Daniel Tierney PCP - General 05/08/23 Chris Carter, Family Medicine 06/15/16 Naina Da Silva NP [address] [place] [address] Referring Family Medicine 09/05/23 [employer] Legal Intern Relationship Specialty Start Date End Date [facility], [facility] PCP - General 05/08/23 Chris Carter, Family Medicine 06/15/16 Naina Da Silva NP [address] [place] [address] Referring Family Medicine 09/05/23 Corporate Legal Intern Relationship Specialty Start Date End Date [facility], [facility] PCP - General 05/08/23 Chris Carter, Family Medicine 06/15/16 Naina Da Silva NP [address] [place] [address] Referring Family Medicine 09/05/23 Team Status: Active Member Role Status Dates Naina Da Silva SR. MANAGER CORPORATE COMMUNICATIONS, SR. MANAGER CORPORATE COMMUNICATIONS-C Primary Care Provider Active Dr. Johns Friend , DO Attending Provider, Referring Provider Active [employer] Intern Relationship Specialty Start Date End Date [facility], [facility] PCP - General 05/08/23 Chris Carter, Family Medicine 06/15/16 Naina Da Silva NP [address] [place] [address] Referring Family Medicine 09/05/23 [employer] Legal Intern Relationship Specialty Start Date End Date Clinic, [facility] PCP - General 05/08/23 Chris Carter, Family Medicine 06/15/16 Naina Da Silva NP [address] [place] [address] Referring Family Medicine 09/05/23 Team Status: Active Member Role Status Dates [facility] Family Provider Active Naina Da Silva VSC, SR. MANAGER CORPORATE COMMUNICATIONS-C Primary Care Provider Activ e Team Status: Inactive Member Role Status Dates Naina Da Silva VSC, SR. MANAGER CORPORATE COMMUNICATIONS-C Primary Care Provider Activ e Start: May 14, 2024 End: May 15, 2024 Dr. Stan Lin , Emergency Provider Active Start: May 14, 2024 End: May 15, 2024 Team Status: Inactive Member Role Status Dates Naina Da Silva VSC, SR. MANAGER CORPORATE COMMUNICATIONS-C Primary Care Provider Activ e Start: May 07, 2024 End: May 07, 2024 Karuna Lim VSC, SR. MANAGER CORPORATE COMMUNICATIONS-C Attending Provider Active Start: May 07, 2024 End: May 07, 2024 Team Status: Active Member Role Status Dates Karuna Lim VSC, SR. MANAGER CORPORATE COMMUNICATIONS-C Primary Care Provider Active Team Status: Inactive Member Role Status Dates Naina Da Silva VSC, SR. MANAGER CORPORATE COMMUNICATIONS-C Primary Care Provider Activ e Start: May 08, 2024 End: May 08, 2024 Dr. Stan Lin DO Attending Provider Active Start: May 08, 2024 End: May 08, 2024 Dr. Stan Lin DO Referring Provider Active Start: May 08, 2024 End: May 08, 2024 Dr. Stan Lin DO Emergency Provider Active Start: May 08, 2024 End: May 08, 2024 Team Status: Inactive Member Role Status Dates Naina Da Silva VSC, SR. MANAGER CORPORATE COMMUNICATIONS-C Primary Care Provider Activ e Start: May 14, 2024 End: May 15, 2024 Dr. Stan Lin DO Attending Provider Active Start: May 14, 2024 End: May 15, 2024 Dr. Stan Lin DO Emergency Provider Active Start: May 14, 2024 End: May 15, 2024 Team Status: Inactive Member Role Status Dates Karina Guerra SR. MANAGER CORPORATE COMMUNICATIONS, SR. MANAGER CORPORATE COMMUNICATIONS-C Attending Provider Active Start: May 23, 2024 End: May 23, 2024 Karina Guerra SR. MANAGER CORPORATE COMMUNICATIONS, SR. MANAGER CORPORATE COMMUNICATIONS-C Referring Provider Active Start: May 23, 2024 End: May 23, 2024 Zebulun Beam VSC, SR. MANAGER CORPORATE COMMUNICATIONS-C Primary Care Provider Active Start: May 23, 2024 End: May 23, 2024 Team Status: Inactive Member Role Status Dates Naina Da Silva VSC, SR. MANAGER CORPORATE COMMUNICATIONS-C Referring Provider Active Start: May 29, 2024 End: May 29, 2024 Shawanda Ramires SR. MANAGER CORPORATE COMMUNICATIONS, SR. MANAGER CORPORATE COMMUNICATIONS-C Attending Provider Active Start: May 29, 2024 End: May 29, 2024 Zebulun Beam VSC, SR. MANAGER CORPORATE COMMUNICATIONS-C Primary Care Provider Active Start: May 29, 2024 End: May 29, 2024 Team Status: Inactive Member Role Status Dates Zebulun Beam VSC, SR. MANAGER CORPORATE COMMUNICATIONS-C Primary Care Provider Active Start: June 02, 2024 End: June 02, 2024 Ed Physician Provider Emergency Provider Active Start: June 02, 2024 End: June 02, 2024 Corporate Legal Intern Relationship Specialty Start Date End Date Daniel Olivas PCP - General 05/08/23 Chris Carter DO Family Medicine 06/15/16 Naina Da Silva NP [address] [place] [address] Referring Family Medicine 09/05/23 Team Status: Active Member Role Status Dates Zebulun Beam VSC, SR. MANAGER [employer]PORATE COMM[employer]ICATIONS-C Primary Care Provider Active Start: June 03, 2024 Zebulun Beam VSC, SR. MANAGER [employer]PORATE COMM[employer]ICATIONS-C Attending Provider Active Start: June 03, 2024 Zebulun Beam VSC, SR. MANAGER [employer]-C Referring Provider Active Start: June 03, 2024 Team Status: Inactive Member Role Status Dates Zebulun Beam VSC, SR. MANAGER [employer]ATE [employer]S-C Primary Care Provider Active Start: June 03, 2024 End: June 03, 2024 Dr. Jaylon Glaicia MD Emergency Provider Active Start: June 03, 2024 End: June 03, 2024 Team Status: Inactive Member Role Status Dates Zebulun Beam VSC, SR. MANAGER [employer]ATE COMM[employer]S-C Primary Care Provider Active Start: June 02, 2024 End: June 02, 2024 Ed Physician Provider Attending Provider Active Start: June 02, 2024 End: June 02, 2024 Ed Physician Provider Emergency Provider Active Start: June 02, 2024 End: June 02, 2024 Team Status: Inactive Member Role Status Dates Zebulun Beam VSC, SR. MANAGER [employer]ATE COMM[employer]ICATIONS-C Primary Care Provider Active Start: June 03, 2024 End: June 03, 2024 Zebulun Beam VSC, SR. MANAGER [employer]ATE COMM[employer]ICATIONS-C Attending Provider Active Start: June 03, 2024 End: June 03, 2024 Zebulun Beam VSC, SR. MANAGER [employer]ATE [employer]S-C Referring Provider Active Start: June 03, 2024 End: June 03, 2024 Team Status: Inactive Member Role Status Dates Zebulun Beam VSC, SR. MANAGER [employer]ATE COMM[employer]ICATIONS-C Primary Care Provider Active Start: June 03, 2024 End: June 03, 2024 Dr. Jaylon Galicia MD Attending Provider Active Start: June 03, 2024 End: June 03, 2024 Dr. Jaylon Galicia MD Emergency Provider Active Start: June 03, 2024 End: June 03, 2024 Team Status: Active Member Role Status Dates Zebulun Beam VSC, SR. MANAGER [employer]ATE COMM[employer]ICATIONS-C Primary Care Provider Active Start: June 05, 2024 Shawanda Ramires SR. MANAGER [employer]PORATE COMMUNICATIONS, SR. MANAGER [employer]ATE COMM[employer]ICATIONS-C Attending Provider Active Start: June 05, 2024 Shawanda Ramires SR. MANAGER [employer]PORATE COMM[employer]ICATIONS, SR. MANAGER [employer]ATE COMM[employer]ICATIONS-C Referring Provider Active Start: June 05, 2024 Team Status: Inactive Member Role Status Dates Zebulun Beam VSC, SR. MANAGER [employer]PORATE COMM[employer]ICATIONS-C Primary Care Provider Active Start: June 10, 2024 End: June 10, 2024 Zebulun Beam VSC, SR. MANAGER [employer]PORATE COMM[employer]ICATIONS-C Attending Provider Active Start: June 10, 2024 End: June 10, 2024 Team Status: Inactive Member Role Status Dates Zebulun Beam VSC, SR. MANAGER [employer]PORATE COMM[employer]ICATIONS-C Primary Care Provider Active Start: June 20, 2024 End: June 20, 2024 Shawanda Ramires SR. MANAGER [employer]PORATE COMMUNICATIONS, SR. MANAGER [employer]PORATE COMM[employer]ICATIONS-C Attending Provider Active Start: June 20, 2024 End: June 20, 2024 Shawanda Ramires SR. MANAGER [employer]PORATE COMMUNICATIONS, SR. MANAGER [employer]PORATE COMM[employer]ICATIONS-C Referring Provider Active Start: June 20, 2024 End: June 20, 2024 Team Status: Active Member Role Status Dates Zebulun Beam VSC, SR. MANAGER [employer]PORATE COMM[employer]ICATIONS-C Primary Care Provider Active Start: June 20, 2024 Dr. Ozzy Greco MD Attending Provider Active S tart: June 20, 2024 Corporate Legal Intern Relationship Specialty Start Date End Date [facility] PCP - General 05/08/23 Chris Carter, DO Family Medicine 06/15/16 Naina Da Silva NP [address] [place] [address] Referring Family Medicine 09/05/23 Team Status: Active Member Role Status Dates Zebulun Beam VSC, SR. MANAGER [employer]PORATE COMM[employer]ICATIONS-C Primary Care Provider Active Start: June 05, 2024 Dr. Marco Bartlett MD Attending Provider Active Start: June 05, 2024 Shawanda Ramires SR. MANAGER CORPORATE COMMUNICATIONS, SR. MANAGER [employer]ATE COMM[employer]ICATIONS-C Referring Provider Active Start: June 05, 2024 Team Status: Active Member Role Status Dates Zebulun Beam VSC, SR. MANAGER [employer]PORATE COMM[employer]ICATIONS-C Primary Care Provider Active Start: June 20, 2024 Dr. Ozzy Greco MD Attending Provider Active S tart: June 20, 2024 Shawanda Ramires SR. MANAGER [employer]PORATE COMMUNICATIONS, SR. MANAGER [employer]PORATE COMM[employer]ICATIONS-C Referring Provider Active Start: June 20, 2024 Team Status: Inactive Member Role Status Dates Naina Da Silva VSC, SR. MANAGER [employer]PORATE COMM[employer]ICATIONS-C Referring Provider Active Start: July 08, 2024 End: July 08, 2024 Dr. Andreas Oliva DO Attending Provider Active Start: July 08, 2024 End: July 08, 2024 Zebulun Beam VSC, SR. MANAGER [employer]PORATE COMM[employer]ICATIONS-C Primary Care Provider Active Start: July 08, 2024 End: July 08, 2024 Corporate Legal Intern Relationship Specialty Start Date End Date [facility] PCP - General 05/08/23 Chris Carter DO Family [facility] 06/15/16 Naina Da Silva NP [address], [place] [id number] Referring [facility] Medicine 09/05/23 Team Status: Inactive Member Role Status Dates Zebulun Beam VSC, SR. MANAGER [employer]PORATE COMM[employer]ICATIONS-C Primary Care Provider Active Start: July 24, 2024 End: July 24, 2024 Zebulun Beam VSC, SR. MANAGER CORPORATE COMM[employer]ICATIONS-C Referring Provider Active Start: July 24, 2024 End: July 24, 2024 Shawanda Ramires NP, SR. MANAGER CORPORATE COMM[employer]ICATIONS-C Attending Provider Active Start: July 24, 2024 End: July 24, 2024 Corporate Legal Intern Relationship Specialty Start Date End Date [facility], [facility] PCP - General 05/08/23 Chris Carter, Family Medicine 06/15/16 Naina Da Silva NP [address], [place] [address] Referring Family Medicine 09/05/23 Team Status: Inactive Member Role Status Dates Karuna MCBRIDE, SR. MANAGER CORPORATE COMM[employer]ICATIONS-C Primary Care Provider Active Start: August 07, 2024 End: August 07, 2024 Dr. Andreas Oliva DO Attending Provider Active Start: August 07, 2024 End: August 07, 2024 Dr. Andreas Oliva DO Referring Provider Active Start: August 07, 2024 End: August 07, 2024 Corporate Legal Intern Relationship Specialty Start Date End Date [facility] PCP - General 05/08/23 Chris Carter, DO Family Medicine 06/15/16 Naina Da Silva NP [address], [place] [id number] Referring Family Medicine 09/05/23 Corporate Legal Intern Relationship Specialty Start Date End Date [facility] PCP - General 05/08/23 Chris Carter, DO Family Medicine 06/15/16 Naina Da Silva NP [address] [place] [address] Referring Family Medicine 09/05/23 Reason for Visit (unrecogniz ed section and content) Reason Comments Dental Problem right bottom tooth p ain x 1 week Reason Comments Ear Pain Left ear pain x 1 we ek Reason Comments PCOS Reason Comments Radiology XR Reason Comments Med Refill Reason Comments Release Of Medical Records Reason Comments Cough Fever, sore throat, headache x 2 days Reason Comments Results Reason Comments Ear Pain Left ear pain felt p op, feels clogged had blood and pus drainage started last night @ 830pm Reason Comments Medical Nutrition Therapy PCOS, Weight M anagement, and Borderline Diabetes Specialty Diagnoses / Procedures Referred By Contac t Referred To Contact Diagnoses PCOS (polycystic ovarian syndrome) Obesity, Class III, BMI 40-49.9 (morbid obesity) (HCC) Procedures ENDOCRINOLOGY DIETITIAN VISIT (MNT) MEDICAL NUTRITION ASSMT&IVNTJ INDIV EACH 15 KS MEDICAL NUTRITION ASSMT&IVNTJ INDIV EACH 15 [place] MEDICAL NUTRITION ASSMT&IVNTJ INDIV EACH 15 [place] MEDICAL NUTRITION ASSMT&IVNTJ INDIV EACH 15 [place] Jey Johnson MD [address] [place] [address] Referral ID Status Reason Start Date Expiration Date V isits Requested Visits Authorized [id number] Closed PCP Requested Referral 01/08/2024 01/07/2025 1 1 Reason Comments Diarrhea vomiting, cough, chi lls and fever x 4 days Reason Comments Established Patient Follow-Up Reason Comments Medical Weight Management Specialty Diagnoses / Procedures Referred By Contac t Referred To Contact Diagnoses Obesity, Class III, BMI 40-49.9 (morbid obesity) (HCC) PCOS (polycystic ovarian syndrome) Procedures ENDOCRINE MEDICAL WEIGHT MANAGEMENT OFFICE/OUTPATIENT [facility] 60 MINUTES Jey Johnson MD [address] [place] [address] Phone: tel: fax: Referral ID Status Reason Start Date Expiration Date V isits Requested Visits Authorized [id number] Closed PCP Requested Referral 04/15/2024 04/15/2025 1 1 Reason Comments Obesity Reason Comments Refill Request Reason Comments Follow Up Reason Comments Ambulatory Social Work FOR RECORDS PERTAINING TO PATIENTS WHO ARE [...] BE BASED ON THE PRIMARY CLINICAL RECORDS. [facility]. provides no warranty or guarantee of the accuracy or completeness of information in this document.
[2024-09-04 22:33] LABS: Hematocrit 38.0 % (37-47); Hemoglobin 12.3 g/dL (12.0-15.0); Immature Granulocytes Count 0.030 X10^3/uL (0.0-0.0); Mean Corp Hgb Conc 32.4 g/dL (32-36); Mean Corpuscular Volume 83.0 fL (81-99); Mean Platelet Vol. 11.4 fl (6.2-12.0); NRBC Flagged by Analyzer 0 % (0-5); POSITIVE COUNT YES; Platelet Count 241 K/mm3 (150-450); RBC Distribution Width CV 14.4 % (11.6-14.6); RBC Distribution Width SD 43.3 fl (35.1-43.9); Red Blood Count 4.58 M/mm3 (4.2-5.4); White Blood Count 7.2 K/mm3 (4.4-11.0)
[2024-09-04 22:38] LABS: Differential Indicated SCAN CRITERIA MET
[2024-09-04] MEDS: 0.9% Normal Saline (1000mL) 1,000 ML 999 ML IV (22:42)
[2024-09-04 23:13] VITALS: BP 135/72; PULSE 70; RESP 18; O2SAT 98
[2024-09-04 23:16] LABS: Magnesium 2.1 mg/dL (1.5-2.2)
[2024-09-04 23:19] LABS: Anion Gap 12 (5-15); BUN 10 mg/dL (4-19); BUN/Creat Ratio 17.9 RATIO (10-20); Calcium,Total 9.1 mg/dL (7.6-11.0); Carbon Dioxide 21.9 mmol/L (21.0-32.0); Chloride 105 mmol/L (98-108); Estimated Creatinine Clearance 210.24 ml/min (50-250); Glucose 117 mg/dL (70-99); Potassium 4.1 mmol/L (3.3-5.1)
[2024-09-04 23:20] LABS: Differential Comment SCANNED
--- NOTE | 2024-09-04 23:44 | EDS_ITS ---
HPI History of Present Illness Chief Complaint: Syncope Informant: patient and family Narrative Narrative: Patient is a 28-year-old female with past medical history of anxiety and depression as well as bipolar disorder and Crohn's disease. She states that she has diarrhea almost daily secondary to her history of Crohn. She states that today she was sitting down when she felt kind of lightheaded and thought she had to go to the bathroom. She states she stood up and her vision began to get dark and then she had a syncopal event. She states there was no palpitations or chest pain associated with this. She reports that she has worn a Holter monitor in the past without any obvious diagnosis of cardiac dysrhythmia. She reports there has been no chest pain or vomiting or change to her medication. [facility] Medical History Alcohol use Picking own skin Low iron Fatty liver Gastroparesis Cardiology follow-up encounter Palpitations Obesity Depression Diabetes GERD (gastroesophageal reflux disease) Irregular heart beat Cellulitis History of echocardiogram Wears glasses Bipolar disorder Anxiety Arthritis Back pain Migraine headache Syncope Non-smoker Bipolar 1 disorder PCOS (polycystic ovarian syndrome) IBS (irritable bowel syndrome) Migraines Autism Home Medications ?Medication ?Instructions ?Recorded ?Last Taken ?Type lithium carbonate 300 mg capsule 300 mg PO DAILY Bipol ar 04/05/17 10/22/23 History ferrous sulfate 325 mg (65 mg 325 mg PO QODAY suppleme nt 01/24/22 10/21/23 History iron) tablet (FeroSul) lithium carbonate 600 mg capsule 600 mg PO QHS mental health 01/24/22 10/22/23 History aripiprazole lauroxil 441 mg/1.6 441 mg IM .COMPLEX [facility] 12/18/22 10/23/23 History mL suspension, ext.rel. IM syringe ([place]ristada) cholecalciferol (vitamin D3) 25 25 mcg PO DAILY vitami n 12/18/22 10/22/23 History mcg (1,000 unit) tablet (Vitamin D3) imipramine HCl 25 mg tablet 25 mg PO DAILY mental heal 12/18/22 10/22/23 History mecobalamin (vitamin B12) 1,000 1,000 mcg PO DAILY 10/22/23 History mcg lozenges pantoprazole 40 mg tablet,delayed 40 mg PO DAILY 06/0210/22/23 History release simvastatin 20 mg tablet 20 mg PO QHS 06/03/23 History lactulose 10 gram/15 mL oral 30 g (45 mL) PO BID PRN 0 09/28/23 10/21/23 Rx solution constipation #473 mL hyoscyamine sulfate 0.125 mg tablet 0.125 mg PO BID-QI D PRN dyspepsia 10/10/23 10/21/23 Rx #30 tabs polyethylene glycol 3350 17 4 g PO ONCE PRN constipati on 10/17/23 10/24/23 History gram/dose oral powder (Miralax) sucralfate 1 gram tablet 1 g PO TID PRN constipation 10/19/23 10/21/23 History diphenoxylate-atropine 2.5 1 tab PO BID PRN diarrhea # 30 tabs 10/29/23 Unknown Rx mg-0.025 mg tablet (Lomotil) metoclopramide HCl 10 mg tablet 5 mg (1/2 x 10 mg) PO BID nausea 04/22/24 Unknown Rx (Reglan) and vomiting #28 tabs dicyclomine 20 mg tablet 20 mg PO TID PRN abdominal p ain 05/08/24 Unknown Rx #30 tabs metoclopramide HCl 10 mg tablet 10 mg PO Q6H PRN nause a and 05/08/24 Unknown Rx (Reglan) vomiting #20 tabs miscellaneous medical supply #1 ea 05/29/24 Unknown Rx metoprolol tartrate 50 mg tablet 100 mg (2 x 50 mg) PO BID #180 tabs 07/21/24 Unknown Rx amitriptyline 25 mg tablet 25 mg PO DAILY 09/04/24 Unk nown History amlodipine 2.5 mg tablet 2.5 mg PO BID 09/04/24 Unkno wn History atogepant 60 mg tablet (Qulipta) 60 mg PO DAILY Unknown History cyanocobalamin (vitamin B-12) 1,000 mcg sublingual YI LY 09/04/24 Unknown History 1,000 mcg sublingual tablet norgestimate 0.25 mg-ethinyl 1 tab PO DAILY 09/04/24 U nknown History estradiol 0.035 mg tablet ([place]quier-Linyah) rizatriptan 10 mg tablet 10 mg PO Q2H PRN migraine he adache 09/04/24 Unknown History Allergy/AdvReac Type Severity Reaction Status Date / Time metformin Allergy Mild Nausea/Vom/ Verified 09/04/24 21:18 Diarrhea pollen extracts Allergy Hives Verified 09/04/24 21:18 escitalopram (From Lexapro) AdvReac Other Verified 09/04/24 21:18 lactase (From Dairy Aid) AdvReac Upset Verified 09/04/24 21:18 Stomach ondansetron (From Zofran (as AdvReac Anaphylaxis Verified 09/04/24 21:18 hydrochloride)) Family History Mother Uterine cancer Other Asthma Depression Diabetes GERD (gastroesophageal reflux disease) Heart disease Hyperlipidemia Hypertension Surgical History History of colonoscopy History of esophagogastroduodenoscopy (EGD) History of tonsillectomy and adenoidectomy H/O knee surgery H/O spinal fusion Social History household members: none housing: apartment current occupational status: unemployed history of recent travel: No Smoking Status: Never smoker alcohol intake: current alcohol intake frequency: holidays/special occasions only substance use type: does not use caffeine: Yes Type: carbonated beverages what type of physical activity do you participate in: walking frequency: daily seatbelt use: always do you feel safe at home: Yes additional social history: single ROS ROS ED Constitutional Constitutional ED: Denies chills or fever(s) ENT ENT ED: Denies sore throat Cardiovascular Cardiovascular: Reports other Details: Positive syncope ; Denies chest pain, palpitations or racing heartbeat Respiratory/Chest Respiratory/Chest: Denies cough or dyspnea Gastrointestinal Gastrointestinal: Reports diarrhea; Denies abdominal pain, nausea or vomiting Genitourinary Genitourinary ED: Denies dysuria Musculoskeletal Musculoskeletal: Denies myalgias Integumentary Denies rash Neurologic Neurologic: Denies headache(s) Hematologic/Lymphatic Hematologic/Lymphatic: Denies easy bleeding or easy bruising EXAM Physical Exam Const Vital Signs: 09/04/24 21:13 09/04/24 21:14 09/04/24 23:13 Temperature 98.4 F Temperature Source Temporal Pulse Rate 71 70 Respiratory Rate 16 18 Respiratory Effort Normal Non-Labored Respiratory Pattern Normal Blood Pressure 162/95 H 135/72 H Blood Pressure Mean 117 93 Pulse Ox 100 98 Oxygen Delivery Method Room Air 09/04/24 23:45 Temperature 98.4 F Temperature Source Pulse Rate 85 Respiratory Rate 14 Respiratory Effort Respiratory Pattern Blood Pressure 141/74 H Blood Pressure Mean 96 Pulse Ox 99 Oxygen Delivery Method Positive well nourished, well developed and obese General Appearance ED: well developed; Negative for pallor Nutritional Appearance: obese HEENT Reports dry mucous membranes HEENT Narrative: Normocephalic atraumatic No tongue or cheek biting to suggest seizure activity Mucous membranes are dry and tacky No tongue or lip swelling no oral lesions no airway edema or compromise; no secondary findings in the posterior pharynx to suggest infection Mouth ED: Yes dry mucous membranes Mouth: dry mucous membranes Eyes PERRL and EOMs intact bilaterally General Eye ED: Negative for pale conjunctiva or scleral icterus Neck supple Neck Narrative: No bony deformity or step-off of the cervical spine no midline tenderness to palpation No nuchal rigidity or meningeal signs Resp normal respiratory effort and clear to auscultation bilaterally Cardio regular rate and regular rhythm GI normal to inspection, nondistended, normoactive bowel sounds, non-tender, non- distended and no masses Auscultation: normoactive bowel sounds Palpation: soft Back/Spine Back/Spine Narrative: No bony deformity or step-off of the thoracic or lumbar spine no midline tender ness to palpation Extremity normal to inspection Neuro oriented x3, CN's II-XII intact bilaterally and no sensory deficits noted Neuro Narrative: GCS of 15 Cranial nerves II through XII are grossly intact without focal neurologic deficit No pronator drift no dysmetria no truncal ataxia NIH stroke scale score of 0 Sensorium / Orientation: alert Motor Exam: strength 5/5 throughout Psych mental status grossly normal Skin no rashes or lesions noted, no wounds and No skin turgor normal Skin Narrative: Skin turgor is increased General Skin Exam: Negative for jaundice or pallor MDM MDM MDM Narrative Medical decision making narrative: Patient presented to the ER hypertensive but otherwise with stable vital. She reported bouts of syncope throughout the day. In order to ensure that this is not from a spontaneous subarachnoid or subdural hemorrhage or cardiac dysrhythmia or acute blood loss anemia or acute kidney injury I like to perform basic laboratory studies with EKG and head CT. Labs revealed no clinically significant findings. Head CT revealed no signs of bleed or mass. EKG is sinus rhythm going against ischemia or cardiac dysrhythmia. Patient had no further bouts of syncope while in the ER. We discussed that this could be due to medication as she is on multiple medications and the interactions could be causing her symptom. However at this time she will need to follow-up with her family doctor to discuss further workup for potentially cardiac dysrhythmia or need for tilt table test to further assess the cause of her syncope. But in the ER as vitals are stable and overall workup is negative she is otherwise safe for discharge. History & Record Review Discussion w/independent historian: Patient and Family Lab Data Attestation: I reviewed the patient's lab results. Labs: Laboratory Results - last 24 hr 09/04/24 21:26 WBC 7.2 RBC 4.58 Hgb 12.3 Hct 38.0 MCV 83.0 MCH 26.9 L MCHC 32.4 RDW Std Deviation 43.3 RDW Coeff of Delmy 14.4 Plt Count 241 MPV 11.4 Immature Gran % (Auto) 0.400 Neut % (Auto) 54.7 Lymph % (Auto) 33.0 [place] % (Auto) 9.8 Eos % (Auto) 1.4 Baso % (Auto) 0.7 Absolute Neuts (auto) 3.9 Absolute Lymphs (auto) 2.36 Nucleated RBC % 0 Differential Comment SCANNED Sodium 138 Potassium 4.1 Chloride 105 Carbon Dioxide 21.9 Anion Gap 12 BUN 10 Creatinine 0.57 L Estim Creat Clear Calc 210.24 Est GFR (MDRD) Non-Af 128 BUN/Creatinine Ratio 17.9 Glucose 117 H Calcium 9.1 Magnesium 2.1 Radiography Diagnostic Testing: Clinical Impression(s) from Imaging Studies Brain CT 09/04/24 22:22 IMPRESSION: No acute intracranial findings. Reading Location: [place] [address] Discharge Plan Triage Chief Complaint: Syncope ED Provider: Alexandr Smith Dx/Rx/DC Orders Clinical Impression: Syncope, Hypertension, Bipolar 1 disorder, Crohn's disease, Anxiety and depression Instructions: ED Fainting, Uncertain Cause Prescriptions: No Action mecobalamin (vitamin B12) 1,000 mcg lozenge 1,000 mcg PO DAILY Rx Instructions: allow to dissolve in mouth OR may chew lightly before swallowing hyoscyamine sulfate 0.125 mg tablet 0.125 mg PO BID-QID PRN (Reason: dyspepsia) Qty: 30 0RF (DME) miscellaneous medical supply Misc See Rx Instructions .Route Qty: 1 0RF Rx Instructions: As directed lithium carbonate 300 MG capsule 300 mg PO DAILY lithium carbonate 600 mg Capsule 600 mg PO QHS ferrous sulfate [FeroSul] 325 mg (65 mg iron) tablet 325 mg PO QODAY imipramine HCl 25 mg tablet 25 mg PO DAILY cholecalciferol (vitamin D3) [Vitamin D3] 25 mcg (1,000 unit) tablet 25 mcg PO DAILY Aristada 441 mg/1.6 mL suspension,extended rel syring 441 mg IM .COMPLEX Rx Instructions: 441 mg intramuscularly Q28D; due first week of september polyethylene glycol 3350 [Miralax] 17 gram/dose powder 4 g PO ONCE PRN (Reason: constipation) sucralfate 1 gram tablet 1 g PO TID PRN (Reason: constipation) Rx Instructions: 1 g orally Take on an empty stomach. Hour before meals-lunch and dinner; do not take within 2 hours before or after lithium metoclopramide HCl [Reglan] 10 mg tablet 10 mg PO Q6H PRN (Reason: nausea and vomiting) Qty: 20 0RF dicyclomine 20 mg tablet 20 mg PO TID PRN (Reason: abdominal pain) Qty: 30 0RF amitriptyline 25 mg tablet 25 mg PO DAILY norgestimate-ethinyl estradiol [[place]-Linyah] 0.25-0.035 mg tablet 1 tab PO DAILY cyanocobalamin (vitamin B-12) 1,000 mcg tablet, sublingual 1,000 mcg sublingual DAILY Qulipta 60 mg tablet 60 mg PO DAILY rizatriptan 10 mg tablet 10 mg PO Q2H PRN (Reason: migraine headache) amlodipine 2.5 mg tablet 2.5 mg PO BID simvastatin 20 mg tablet 20 mg PO QHS pantoprazole 40 mg tablet,delayed release (DR/EC) 40 mg PO DAILY lactulose 10 gram/15 mL solution 30 g PO BID PRN (Reason: constipation) Qty: 473 1RF diphenoxylate-atropine [Lomotil] 2.5-0.025 mg tablet 1 tab PO BID PRN (Reason: diarrhea) Qty: 30 2RF metoclopramide HCl [Reglan] 10 mg tablet 5 mg PO BID Qty: 28 11RF metoprolol tartrate 50 mg tablet 100 mg PO BID Qty: 180 3RF Primary Care Provider: Karuna Lim Referrals: Karuna Lim, BLOOD TESTER FOWL-C [Primary Care Provider] - Activity Restrictions/Additional Instructions: Your workup today showed no obvious cause for your passing out event. This could be due to the medications you are taking. However you should follow-up with your family doctor to discuss Holter monitor testing to rule out abnormal cardiac rhythm and/or cardiology referral to discuss need for echo and tilt table testing to further assess the cause of your event. Please return to the ER should you have any further concerns Print Language: Albanian Disposition Disposition: Home, Self Care Discharge Date/Time: 09/04/24 23:51
[2024-09-04 23:45] VITALS: BP 141/74; PULSE 85; RESP 14; TEMP 36.9; O2SAT 99
[2024-09-05 01:16] LABS: Lithium 0.53 mmol/L (0.60-1.20)
== END 2024-09-04 23:51 | disposition home or self-care (01) ==
PROVIDERS: Emergency Provider Emergency Medicine; Visit Provider Emergency Medicine
DX: R55 Syncope and collapse (principal); K50.90 Crohn's disease, unspecified, without complications; F31.9 Bipolar disorder, unspecified; E11.9 Type 2 diabetes mellitus without complications; I10 Essential (primary) hypertension; K21.9 Gastro-esophageal reflux disease without esophagitis; Z79.899 Other long term (current) drug therapy; F41.9 Anxiety disorder, unspecified
CPT/HCPCS: 70450; 80048; 80178; 83735; 85025; 93005; 96360; 99283; A4216

== ENCOUNTER 2024-09-21 20:32 | Emergency (ER) | payer MEDICAID, SELFPAY ==
[2024-09-21 20:32] VITALS: BP 165/91; PULSE 72; RESP 18; TEMP 37.1; O2SAT 100; BMI 47.1
[2024-09-21] MEDS: 0.9% Normal Saline (1000mL) 1,000 ML 999 ML IV (20:59)
[2024-09-21] MEDS: proMETHazine 25 MG/ML Syringe 12.5 MG IM (20:59)
[2024-09-21 21:11] LABS: Hematocrit 39.6 % (37-47); Hemoglobin 12.6 g/dL (12.0-15.0); Immature Granulocytes Count 0.010 X10^3/uL (0.0-0.0); Mean Corp Hgb Conc 31.8 g/dL (32-36); Mean Corpuscular Volume 83.9 fL (81-99); Mean Platelet Vol. 9.1 fl (6.2-12.0); NRBC Flagged by Analyzer 0 % (0-5); Platelet Count 376 K/mm3 (150-450); RBC Distribution Width CV 14.2 % (11.6-14.6); RBC Distribution Width SD 43.8 fl (35.1-43.9); Red Blood Count 4.72 M/mm3 (4.2-5.4); White Blood Count 6.9 K/mm3 (4.4-11.0)
--- OUTSIDE RECORDS SUMMARY | 2024-09-21 21:11 | XMS RPT_ITS | CCD ---
Author Organization [facility] Inform ion Partnership [facility] CliniSywy Care Team Providers Care Emergency Medical Dispatcher Name Role Phone ORLANDO LEES SR Unavailable Unavailable MARY JANE, ERNESTO Unavailable Unavailable MARY JANE, ERNESTO Unavailable Unavailable RAPACZ, DELMI Unavailable Unavailable RAPACZ, DELMI Unavailable Unavailable MARY JANE, ERNESTO Unavailable Unavailable SOMMER LECHUGA Unavailable Unavailable MARY JANE, ERNESTO Unavailable Unavailable MARY JANE, ERNESTO Unavailable Unavailable Mohan Pacheco Unavailable Unavailable Ava, Ernesto Unavailable Unavailable Ava, Ernesto Unavailable Unavailable VANI MANCILLA Primary Care Physician [phone] [facility] Primary Care Pro vider [facility] Referring Provid er Paul RIVET HEATER GAS, RIVET HEATER GAS-Kimi Le Attending Provider Mary Jane DO, Ernesto D Unavailable Unavailab Crys Barraza Primary Care Provider Mary Jane STEVENSON Ernesto D Unavailable Unavailab Crys Barraza Primary Care Provider [facility] Primary Care Pro vider [facility] Referring Provid er Paul RIVET HEATER GAS, RIVET HEATER GAS-Kimi Le Attending Provider [phone] [facility] Primary Care Pro vider [facility] Referring Provid er Paul RIVET HEATER GAS, RIVET HEATER GAS-Kimi Le Attending Provider [phone] [facility] Primary Care Pro vider [facility] Referring Provid er Friend, Dr. Johns Attending Provider [phone] Paul RIVET HEATER GAS, RIVET HEATER GAS-Kimi Le Attending Provider [phone] [facility], [facility] Primary Care Pro vider [facility], [facility] Referring Provid er Friend, Dr. Johns Attending Provider [phone] Friend, Dr. Johns Referring Provider [phone] Friend, Dr. Johns Other Provider [phone] [facility], [facility] Primary Care Pro vider Friend, Dr. Johns Attending Provider [phone] [facility], [facility] Referring Provid er Paul RIVET HEATER GAS, RIVET HEATER GAS-Kimi Le Attending Provider [phone] [facility], [facility] Primary Care Pro vider Friend, Dr. Johns Attending Provider [phone] [employer] SPECIALIST-WATER RESOURCES TECHNICAL OFFICER, VANI Primary Care Unavailab noelle HUANG DO, DR JUDSON Godinez Attending Unavailable Dr. Sarah Purdy Emergency Provider Dr. [place] Wisdom Admit Provider Dr. [place] Wisdom Attending Provider Dr. [place] Wisdom Other Provider Dr. Garrick Mcgowan Attending Provider [phone] Laura Li Attending Provider Unavailable Dr. Laura Li Other Provider Unavailable [facility], [facility] Primary Care Pro vider Dr. Sarah Purdy Emergency Provider Dr. [place] Wisdomit Provider Dr. [place] Wisdom Attending Provider Dr. [place] Wisdom Other Provider Dr. Garrick Mcgowan Attending Provider Dr. Laura Li Attending Provider Unavailable Dr. Laura Li Other Provider Unavailable [facility], [facility] Referring Provid er Dr. Andreas Oliva Attending Provider Dr. Hubert Mo Attending Provider Avinash RIVET HEATER GAS, RIVET HEATER GAS-C Naina Primary Care Provider CAL PAYTON Admitting Unavailable CAL PAYTON Attending Unavailable DULCE CHAVEZ Consulting Unavailable [facility], [facility] Primary Care Pro vider [facility], [facility] Referring Provid er Hazel, Dr. Johns Attending Provider Dr. Hubert Mo Attending Provider Avinash RIVET HEATER GAS, RIVET HEATER GAS-C Naina Primary Care Provider Ernesto Carter DO Unavailable Clinic, [facility] Primary Care Provider Un available [facility], [facility] Referring Provid er [facility], [facility] Primary Care Provider Un available Avinash RIVET HEATER GAS, Naina Unavailable Crys Obrien CNP Primary Care Provider Unallocated , [place] Provider Primary Care Provi yoli Aleksandra RIVET HEATER GAS, Alisson S Unavailable BALJITT, ALISSON S Attending Unavailable ALEKSANDRA, ALISSON S Attending Unavailable HUEY CORTES Attending Unavailable JEY JOHNSON Referring Unavaila ble Avinash RIVET HEATER GAS-C, Naina Primary Care Provider Avinash RIVET HEATER GAS-C, Naina Referring Provider Dr. Marco Bartlett MD Attending Provider Karuna Tejada Attending Provider Dr. Stan Lin DO Referring Provider Dr. Stan Lin DO Emergency Provider Avinash RIVET HEATER GAS-C, Naina Primary Care Provider Dr. Stan Lin DO Attending Provider Mari RIVET HEATER GAS-C, Karina Attending Provider Mari RIVET HEATER GAS-C, Karina Referring Provider Beam RIVET HEATER GAS-C, Zebulun Primary Care Provider Avinash RIVET HEATER GAS-C, Naina Referring Provider Ike RIVET HEATER GAS-C, Shawanda Attending Provider Provider, Ed Physician Emergency Provider Eboni Lim RIVET HEATER GAS-C, Zebulun Referring Provider Grayson VARGAS, Dr. Iyer Emergency Provider Avinash RIVET HEATER GAS-C, Naina Primary Care Provider Carina RIVET HEATER GAS-C, Karuna Attending Provider Provider, Ed Physician Attending Provider Eboni Galicia MD, Dr. Iyer Attending Provider Ike PACK-CShawanda Referring Provider Fannie VARGAS, Dr. Preciado Attending Provider Dr. Marco Bartlett MD Attending Provider Dr. Andreas Oliva DO Attending Provider Dr. Andreas Oliva DO Referring Provider Avinash RIVET HEATER GAS-C, Naina Primary Care Provider Carina RIVET HEATER GAS-C, Zebulun Attending Provider Dr. Stan Lin DO Attending Provider Dr. Stan Lin DO Referring Provider Dr. Stan Lin DO Emergency Provider Mari RIVET HEATER GAS-CKarina Attending Provider Mari RIVET HEATER GAS-C, Karina Referring Provider Beam RIVET HEATER GAS-C, Zebulun Primary Care Provider Avinash RIVET HEATER GAS-C, Naina Referring Provider Ike RIVET HEATER GAS-C, Shawanda Attending Provider Provider, Ed Physician Attending Provider Eboni abreu Provider, Ed Physician Emergency Provider Eboni abreu Beam RIVET HEATER GAS-C, Zebulun Referring Provider Grayson VARGAS, Dr. Iyer Attending Provider Grayson VARGAS, Dr. Iyer Emergency Provider Ike RIVET HEATER GAS-C, Shawanda Referring Provider [phone] Dhruv VARGAS, Dr. Lara Attending Provider Fannie VARGAS, Dr. Preciado Attending Provider [phone] Hazel STEVENSON, Dr. Johns Attending Provider Hazel DO, Dr. Johns Referring Provider Avinash RIVET HEATER GAS-C, Naina Attending Provider Sarah STEVENSON, Dr. Strange Emergency Provider Avinash RIVET HEATER GAS-C, Naina Primary Care Provider Delia STEVENSON, Dr. Pierce Attending Provider Delia STEVENSON, Dr. Pierce Emergency Provider Beam RIVET HEATER GAS-C, Zebulun Attending Provider Avinash RIVET HEATER GAS-C, Naina Attending Provider Sarah STEVENSON, Dr. Strange Emergency Provider Avinash VSC, Naina Primary Care Unavailabl e Beam VSC, Zebulun Attending Unavailable Avinash VSC, Naina Primary Care Unavailabl e Stan Lin Attending Unavailable Friend, Andreas Referring Unavailable Friend, Andreas Attending Unavailable Beam VSC, Zebulun Primary Care Unavailable Avinash VSC, Naina Primary Care Unavailabl e Friend, Andreas Referring Unavailable Friend, Andreas Attending Unavailable Avinash VSC, Naina Primary Care Unavailabl e Beam VSC, Zebulun Attending Unavailable Avinash VSC, Naina Primary Care Unavailabl e Stan Lin Attending Unavailable Stan Lin Referring Unavailable Jaylon Galicia Attending Unavailable Beam VSC, Zebulun Primary Care Unavailable Avinash VSC, Naina Referring Unavailabl e Avinash VSC, Naina Primary Care Unavailabl e Friend, Andreas Attending Unavailable Avinash VSC, Naina Referring Unavailabl e Avinash VSC, Naina Primary Care Unavailabl e Araceli Rosas NP Attending Unavailable Avinash VSC, Naina Primary Care Unavailabl e Jaylon Galicia Attending Unavailable Avinash VSC, Naina Primary Care Unavailabl e Beam VSC, Zebulun Attending Unavailable Ike PACK, Shawanda Attending Unavailable Shawanda Ramires NP Referring Unavailable Beam VSC, Zebulun Primary Care Unavailable Beam VSC, Zebulun Attending Unavailable Beam VSC, Zebulun Primary Care Unavailable Beam VSC, Zebulun Primary Care Unavailable Beam VSC, Zebulun Attending Unavailable Beam VSC, Zebulun Referring Unavailable Beam VSC, Zebulun Primary Care Unavailable Karina Guerra NP Attending Unavailable Karina Guerra NP Referring Unavailable Avinash VSC, Naina Primary Care Unavailabl e Paolo Weems Attending Unavailable Alexandr Smith Attending Unavailable Beam VSC, Zebulun Primary Care Unavailable Ozzy Greco Attending Unavailable Shawanda Ramires NP Referring Unavailable Beam VSC, Zebulun Primary Care Unavailable Avinash VSC, Naina Primary Care Unavailabl e Friend, Andreas Referring Unavailable Friend, Andreas Attending Unavailable Avinash VSC, Naina Primary Care Unavailabl e Friend, Andreas Referring Unavailable Friend, Andreas Attending Unavailable Avinash VSC, Naina Primary Care Unavailabl e Friend, Andreas Referring Unavailable Friend, Andreas Attending Unavailable Avinash VSC, Naina Attending Unavailabl e Beam VSC, Zebulun Primary Care Unavailable Avinash VSC, Naina Primary Care Unavailabl e [facility] Referring Unavailable Zeus Miller Attending Unavailable Friend, Andreas Attending Unavailable Beam VSC, Zebulun Primary Care Unavailable Avinash VSC, Naina Referring Unavailabl e Avinash VSC, Naina Primary Care Unavailabl e Bryson Gonsalves NP Attending Unavailable Avinash VSC, Naina Referring Unavailabl e Avinash VSC, Naina Primary Care Unavailabl e Radha Jang Attending Unavailable Avinash VSC, Naina Referring Unavailabl e Beam VSC, Zebulun Primary Care Unavailable Ike PACK, Shawanda Attending Unavailable Avinash VSC, Naina Referring Unavailabl e Avinash VSC, Naina Primary Care Unavailabl e Friend, Andreas Consulting Unavailable Friend, Andreas Attending Unavailable Shawanda Ramires NP Referring Unavailable Marco Bartlett Attending Unavailable Beam VSC, Zebulun Primary Care Unavailable Shawanda Ramires NP Attending Unavailable Beam VSC, Zebulun Referring Unavailable Beam VSC, Zebulun Primary Care Unavailable Avinash VSC, Naina Referring Unavailabl e Friend, Andreas Attending Unavailable Beam VSC, Zebulun Primary Care Unavailable Avinash VSC, Naina Primary Care Unavailabl e Avinash VSC, Naina Referring Unavailabl e Marco Bartlett Attending Unavailable Avinash VSC, Naina Referring Unavailabl e Avinash VSC, Naina Primary Care Unavailabl e Jazmine Barker Attending Unavailable Avinash VSC, Naina Attending Unavailabl e Avinash VSC, Naina Referring Unavailabl e Avinash VSC, Naina Primary Care Unavailabl e Ike PACK, Shawanda Attending Unavailable Shawanda Ramires NP Referring Unavailable Beam VSC, Zebulun Primary Care Unavailable Provider, Ed Physician Attending Unavailab le Beam VSC, Zebulun Primary Care Unavailable Avinash VSC, Naina Primary Care Unavailabl e Friend, Andreas Referring Unavailable Friend, Andreas Attending Unavailable BENDARAM, JEY LAGUNA Attending Unavaila ble KIOFEA, HUEY Referring Unavailable LAURA CARSON Attending Unavailable BENDARAM, JEY LAGUNA Referring Unavaila ble BENDARAM, JEY LAGUNA Attending Unavaila ble BENDARAM, JEY LAGUNA Referring Unavaila ble CARISSA SHERWOOD Attending Unavailable BENDARAM, JEY LAGUNA Attending Unavaila ble BENDARAM, JEY LAGUNA Referring Unavaila ble BENDARAM, JEY LAGUNA Attending Unavaila ble KIBERA, ROMEOS Referring Unavailable LEONIDLAURA VINCENT Attending Unavailable Allergies Allergy Classification Reported Allergen(s) Allergy Type Date of Onset Reaction(s) Facility (20 sources) escitalopram; Translations: [ESCITALOPRAM OXALATE] Drug Allergy 07-15-19 17 Mental Status Change [facility] Repository (20 sources) lactase; Translations: [LACTASE] Drug Allergy 09-12-19 12 Diarrhea, GI Upset [facility] Repository (2 sources) ondansetron; Translations: [ONDANSETRON HCL] Drug Allergy 07-15-19 17 AOF [facility] Repository (20 sources) Seasonal allergy; Translations: [SEASONAL ALLERGIES] Propensity to adverse reactions (disorder) 12-03-19 13 Cough [facility] Repository (1 source) GLUTEN MEAL; Translations: [GLUTEN MEAL] Propensity to adverse reactions to drug (disorder) 07-15-19 17 [facility] Repository (20 sources) Escitalopram; Translations: [escitalopram] Drug Allergy 07-15-19 Other: See Comments [facility] Comment on above: increased si (20 sources) Ondansetron; Translations: [ondansetron] Drug Allergy 07-15-19 17 Anaphylaxis, Other: See Comments [facility] (20 sources) Pollen; Translations: [POLLEN EXTRACTS] Allergy to substance 12-10-19 Hives, Intolerance [facility] (20 sources) Ondansetron; Translations: [ONDANSETRON (PF) IN DEXTROSE] Drug Allergy 08-22-19 17 Swelling, GI Upset [facility] (13 sources) Tricyclic Compounds Drug Intolerance 08-22-19 Other: See Comments [facility] (20 sources) Gluten Flour; Translations: [GLUTEN FLOUR] Food Intolerance 08-22-19 17 Diarrhea [facility] (20 sources) metFORMIN; Translations: [METFORMIN] Drug Allergy 02-28-19 23 Diarrhea, GI Upset [facility] (20 sources) broccoli allergenic extract; Translations: [BROCCOLI] Drug Allergy 04-08-19 24 Diarrhea [facility] Repository (20 sources) cauliflower allergenic extract; Translations: [CAULIFLOWER] Drug Allergy 04-08-19 24 Diarrhea [facility] Repository (20 sources) tomato allergenic extract; Translations: [TOMATO] Drug Allergy 04-08-19 24 GI Upset [facility] (13 sources) Tricyclic Antidepressants And Tricyclic Compounds; Translations: [TRICYCLIC ANTIDEPRESSANTS AND TRICYCLIC COMPOUNDS] Drug Intolerance 08-22-19 Other: See Comments [facility] (1 source) Escitalopram Drug Allergy 09-05-19 25 [facility] (1 source) metFORMIN Drug Allergy 09-05-19 [facility] (1 source) Ondansetron Drug Allergy 09-05-19 [facility] (1 source) Pollen Drug allergy (disorder) 09-05-19 [facility] Repository Medications Current Medications Medication Drug Class(es) Dates Sig (Normalized) Sig (Original) amitriptyline hydrochloride 25 mg oral tablet (20 sources) Tricyclic Antidepressant Start: 09-04-2024 take 1 tablet by mouth once daily Amitriptyline 25 mg tablet Active 25 mg PO DAILY September 04, 2024 12:00am Start: 12-12-2021 End: 10-26-2023 take 1 tablet by mouth at bedtime Amitriptyline 25 mg tablet Discontinued 25 mg PO AT BEDTIME January 24, 2022 1:00am October 03, 2022 8:42am amLODIPine 2.5 mg oral tablet (20 sources) Dihydropyridine Calcium Channel Radha Start: 06-10-2024 End: 07-29-2024 take 1 tablet by mouth twice daily Amlodipine 2.5 mg tablet Active 2.5 mg PO TWICE A DAY September 04, 2024 12:00am Start: 06-10-2024 End: 09-04-2024 take 1 tablet by mouth once daily Amlodipine 2.5 mg tablet Discontinued 2.5 mg PO daily 60 July 29, 2024 5:00pm September 04, 2024 9:48pm Start: 05-05-2024 End: 05-29-2024 take 5 mg by mouth once daily Amlodipine 10 mg tablet Discontinued 5 mg PO daily 90 May 05, 2024 10:22am May 29, 2024 2:37pm Start: 04-21-2024 End: 06-02-2024 take 2.5 mg by mouth once daily Amlodipine 10 mg table t Discontinued 2.5 mg PO daily May 29, 2024 2:36pm June 02, 2024 12:02pm Start: 04-21-2024 End: 05-05-2024 take 1 tablet by mouth once daily Amlodipine 10 mg tablet Discontinued 10 mg PO daily 90 April 21, 2024 1:00am May 05, 2024 [...] suspension,extended rel syring Active 441 mg IM .COMPLEX December 18, 2022 12:00am mental health 441 mg intramuscularly Q28D; due first week of september Start: 09-26-2022 Aristada 441 M G/1.6ML injection Inject 441 mg into the shoulder, thigh, or buttocks 1 (one) time. 09/26/2022 Active Atogepant (2 sources) Start: 09-04-2024 take 1 tablet by vaughn th once daily Atogepant (Atogepant 60 Mg Tablet) 60 mg tablet Active 60 mg PO DAILY September 04, 2024 12:00am Start: 09-04-2024 atogepant (QULIPTA) 60 mg tablet (5 sources) Start: 05-20-2024 take 1 tablet by mouth once daily atogepant (QULIPTA) 60 mg tablet Take 60 mg by mouth once daily. 05/20/2024 Active atropine sulfate 0.025 mg / diphenoxylate hydrochloride 2.5 mg oral tablet (14 sources) Anticholinergic, Cholinergic Muscarinic Antagonist, Antidiarrheal Start: 10-29-2023 Diphenoxylate-At ropine (Lomotil) 2.5-0.025 mg tablet Active 1 {tbl} PO TWICE A DAY as needed for diarrhea October 29, 2023 12:00am Start: 10-29-2023 cholecalciferol 0.025 mg oral tablet (20 sources) Vitamin D Start: 12-18-2022 take 1 tablet by mouth once daily cholecalciferol (VITAMIN D3) 1,000 unit tab tablet Take 1,000 Units by mouth once daily. 01/14/2024 Active Start: 12-18-2022 take 1 tablet by [facility] once daily Cholecalciferol (Vitamin D3) (Vitamin D3) 25 mcg (1,000 unit) tablet Active 25 ug PO DAILY December 18, 2022 12:00am vitamin Start: 01-28-2020 End: 01-24-2024 take 1 capsule by mouth every week cholecalciferol, Vitamin D3, (VITAMIN D3) 1,250 mcg (50,000 unit) cap capsule Take 1 capsule by mouth one time a week. 01/28/2020 01/24/2024 Discontinued (Course of therapy completed) Comment on above: Take 1 capsule by [facility] one time a week. dicyclomine hydrochloride 20 [...] HOURS NEEDED as needed for abdominal discomfort 20 0 September 24, 2023 2:26am October 10, 2023 1:31pm Start: 08-11-2022 End: 10-03-2022 take 1 capsule by mouth twice daily as needed for pain Dicyclomine 10 mg capsule Discontinued 10 mg PO TWICE A DAY as needed for abdominal pain 60 1 August 11, 2022 12:00am October 03, 2022 8:41am Start: 08-11-2022 End: 10-03-2022 Start: 05-14-2016 End: 05-25-2016 take 2 capsules by mouth three times daily before mealtime Dicyclomine 10 MG capsule Discontinued 20 mg PO THREE TIMES DAILY BEFORE MEALS May 14, 2016 12:00am May 25, 2016 10:01am Start: 05-14-2016 End: 05-25-2016 Start: 05-14-2016 End: 05-25-2016 take 20 mg [...] 0 Refill(s) Start Date: 05/29/16 Status: Ordered Norgestimate-Ethiny l Estradiol [Norgestimate 0.25 Mg-Ethinyl Estradiol 0.035 Mg Tablet] (20 sources) Progestin, Estrogen Start: 09-04-2024 take 0.25 tablet by mouth once daily Norgestimate-Ethin yl Estradiol [Norgestimate 0.25 Mg-Ethinyl Estradiol 0.035 Mg Tablet] (Norgestimate 0.25 Mg-Ethinyl Estradiol 0.035 Mg ) 0.25-0.035 mg tablet Active 1 {tbl} PO DAILY September 04, 2024 12:00am Start: 09-04-2024 Start: 06-27-2024 take 1 tablet by vaughn once daily MONO-LINYAH 0.25-0.035 mg tablet Indications: [...] 1 01/08/2024 Active Start: 12-09-2020 End: 01-03-2021 Start: 12-09-2020 End: 01-03-2021 Norgestimate-Ethinyl Estradi ol [...] 09, 2020 10:09am Start: 01-07-2019 End: 12-09-2020 Start: 01-07-2019 End: 12-09-2020 Norgestimate-Ethinyl Estradi ol [...] 325 mg oral tablet (20 sources) Start: 7 take 1 tablet by mouth every other day ferrous sulfate 325 mg (65 mg iron) tablet Take 325 mg by mouth every other day. 05/29/2016 Active Comment on above: Take 325 mg by mouth . 1.5 ml fremanezumab-vfrm 150 mg/ml prefilled syringe (20 sources) Start: 4 End: 5 inject 1.5 mL by subcutaneous injection every [...] 03, 2022 12:00am May 29, 2024 2:50pm migraine Start: 10-03-2022 End: 05-29-2024 hydrocortisone 10 mg/ml / neomycin 3.5 mg/ml / polymyxin b [id number] unt/ml otic suspension (1 source) Aminoglycoside Antibacterial, Polymyxin-class Antibacterial, Corticosteroid Start: 01-25-2024 End: 01-30-2024 fmgxksgu-lggfqyyke-qlxsgaujb isone (CORTISPORIN) 3.5-10,000-1 mg/mL-unit/mL-% otic suspension Indications: Acute otitis media, left Use 3 Drops in the left ear four times daily for 5 days. 10 mL 01/25/2024 01/30/2024 Active hyoscyamine sulfate 0.125 mg oral tablet (19 sources) Start: 10-10-2023 End: 01-24-2024 Hyoscyamine Sulfate 0.125 mg tablet Active 0.125 mg PO 2 to 4 times per day as needed for dyspepsia 30 October 10, 2023 12:00am imipramine hydrochloride 25 mg oral tablet (20 sources) Tricyclic Antidepressant Start: 12-18-2022 take 1 tablet by mouth once daily at bedtime imipramine HCl (TOFRANIL) 25 mg tablet Take 25 mg by mouth daily at bedtime. 12/18/2022 Active [place] (1 source) Start: 12-14-2020 lithium 300 mg oral capsule Dose : 300 mg = 1 cap(s), Oral, BID, 0 Refill(s) Start Date: 12/14/20 Status: Ordered lithium carbonate 600 mg oral capsule (20 sources) Start: 01-24-2022 take 1 capsule by mouth at bedtime [place] Carbonate 600 mg Capsule Active 600 mg PO AT BEDTIME January 24, 2022 1:00am mental health Start: 01-24-2022 End: 12-12-2021 take 600 mg by mouth at bedtime [place] Carbonate Acti ve 600 MG PO AT BEDTIME January 24, 2022 1:00am Start: 01-24-2022 take 600 mg by mouth at bedtim e [place] Carbonate Active 600 MG PO AT BEDTIME [...] swallowing Mecobalamin (Vitamin B12) 1,000 mcg lozenge (13 sources) Start: 03-20-2023 take 1000 ug by [...] HOURS as needed for nausea and vomiting 20 May 08, 2024 12:00am Start: 03-16-2022 End: 04-22-2024 take 5 mg by mouth twice daily Metoclopramide Hcl (Reg aydee) 10 mg tablet Discontinued 5 mg PO TWICE A DAY 16 01May 28, 2023 10:28am April 22, 2024 10:56am nausea and vomiting Start: 09-03-2021 End: 03-16-2022 take 1 tablet by mouth every eight hours as needed for nausea and vomiting Metoclopramide Hcl (Reglan) 10 mg tablet Discontinued 10 mg PO EVERY 8 HOURS NEEDED as needed for nausea and vomiting 10 September 03, 2021 1:30pm March 16, 2022 2:48pm Start: 09-03-2021 End: 04-22-2024 take 5 mg by mouth f our times daily metoclopramide HCl (REGLAN) 10 mg tablet Take 5 mg by mouth four times daily. Active metoprolol tartrate 50 mg oral tablet (20 sources) beta-Adrenergic Radha Start: 10-19-2023 End: 07-21-2024 metoprolol tartrate, short acting, (LOPRESSOR) 50 mg tablet Take 100 mg by mouth two times a day. 10/19/2023 Active Start: 10-19-2023 take 1 tablet by vaughn th every twelve hours metoprolol tartrate, short acting, (LOPRESSOR) 50 mg tablet Take 1 tablet by mouth every 12 hours. 10/19/2023 Active Start: 10-19-2023 End: 06-23-2024 take 1 tablet by mouth twice daily Metoprolol Tartrate 50 mg tablet Discontinued 50 mg PO TWICE A DAY 180 April 23, 2024 3:46pm June 23, 2024 4:57pm Start: 08-13-2023 End: 10-19-2023 take 1 tablet by mouth once daily Metoprolol Succinate 25 mg tablet extended release 24 hr Discontinued 25 mg PO DAILY 90 August 13, 2023 12:00am October 19, 2023 9:53am Start: 07-24-2020 End: 12-09-2020 take 1 tablet by mouth twice daily Metoprolol Tartrate 25 mg tablet Discontinued 25 mg PO TWICE A DAY 30 July 24, 2020 12:00am December 09, 2020 10:07am Miscellaneous Medical Supply misc (8 sources) Start: 05-29-2024 Miscellaneous Medical Supply misc Active 0 .Route 1 0 May 29, 2024 12:00am Syncope Syncope and collapse As directed Start: 05-29-2024 Miscellaneous Medical Supply misc Active 0 .Route 1 May 29, 2024 [...] 04, 2022 12:00am April 18, 2023 8:57am reflux Start: 05-17-2020 End: 01-08-2024 take 2 tablets [...] daily for 5 days. polyethylene glycol 3350 51334 mg powder for oral solution (20 sources) Osmotic Laxative Start: polyethylene glycol 3350 17 gram/dose powder MIX 4 GRAMS WITH LIQUID AND DRINK ONCE DAILY 10/17/2023 Active Start: 10-17-2023 End: 10-17-2023 take 17 g by mouth once daily polyethylene glycol 3350 17 gram/dose powder Take 17 g by mouth once daily. 10/17/2023 Active Start: 10-17-2023 End: 10-17-2023 Polyethylene Glycol 3350 (Mi ralax) 17 gram/dose powder Active 4 g PO ONCE as needed for constipation October 17, 2023 12:00am rizatriptan 10 mg oral tablet (20 sources) Serotonin-1b and Serotonin-1d Receptor Agonist Start: 09-04-2024 take 1 tablet by mouth every two hours as needed for headache Rizatriptan 10 mg tablet Active 10 mg PO Q2H as needed for migraine headache September 04, 2024 12:00am Start: 06-26-2023 End: 09-23-2023 Rizatriptan 10 mg tablet Dis continued mg PO June 26, 2023 12:00am September 23, 2023 10:33pm Start: 06-04-2023 End: 07-15-2024 simvastatin 20 mg oral tablet (20 sources) [...] sublingual tablet (20 sources) Vitamin B12 Start: 06-30-2024 take 1 tablet under the tongue once daily Cyanocobalamin (Vitamin B-12) 1,000 mcg tablet, sublingual Active 1000 ug SL DAILY September 04, 2024 12:00am Start: 07-24-2022 End: 05-16-2024 Cyanocobalamin 1,000 mcg [...] Drug Class(es) Dates Sig (Normalized) Sig (Original) Control (20 sources) Start: 11-11-2015 End: 12-09-2020 [...] 11, 2015 12:00am December 09, 2020 10:08am control (4 sources) Start: 07-08-2024 End: 09-04-2024 control Discontinued P O July 08, 2024 12:00am September 04, 2024 9:45pm Start: 07-08-2024 control Active PO July 08, 2024 12:00am budesonide 3 mg delayed release oral capsule (20 sources) Corticosteroid Start: 10-10-2022 End: 12-31-2023 budesonide EC (Entocort EC) 3 MG 24 hr capsule 10/10/2022 12/31/2023 Discontinued Start: 10-10-2022 End: 05-28-2023 take 1 capsule by mouth once daily Budesonide 3 mg capsule,delayed,extend.release Discontinued 3 mg PO DAILY 30 30 3 February 214 10:29am May 28, 2023 10:27am Start: 10-10-2022 End: 02-21-2023 take 9 mg by mouth once daily Budesonide Active 9 MG PO DAILY 90 December 27, 2022 3:38pm cetirizine hydrochloride 10 [...] mg tablet Discontinued 500 mg PO Q12H 20 January 24, 2022 1:00am April 04, 2022 [...] tablet (20 sources) Histamine-2 Receptor Antagonist Start: 3 End: 4 take 1 tablet by mouth twice daily Famotidine 40 mg tablet Discontinued 40 mg PO TWICE A DAY 60 2 April 18, 2023 8:53am September 23, 2023 10:33pm reflux fluconazole 150 mg oral tablet (14 sources) Azole Antifungal Start: 4 End: 4 take 1 tablet by mouth once daily Fluconazole 150 mg tablet Discontinued 150 mg PO DAILY 1 0 July 27, 2023 12:00am September 23, 2023 10:33pm administer on day 1 of therapy FREESTYLE RICHARD 2 SENSOR kit (2 sources) Start: End: FREESTYLE RICHARD 2 SENSOR kit 1 Each every 2 [...] A DAY as needed for constipation 473 1 September 28, 2023 12:00am Start: 09-28-2023 take 30 g by mouth t wice daily as needed for constipation Lactulose 10 gram/15 mL solution Active 30 g PO TWICE A DAY as needed for constipation 473 September 28, 2023 12:00am Wydbuw-Dzjammzi-Wwgikjn (Zenpep) 40,000-126,000- 168,000 unit capsule,delayed release(DR/EC) (20 sources) Start: 03-16-2022 End: 06-06-2022 take 3 capsules by mouth three times daily at mealtime Kdkanv-Nlpeahpx-Emgcllc (Zenpep) 40,000-126,000- 168,000 unit capsule,delayed release(DR/EC) Discontinued 3 NMA PO THREE TIMES A DAY 189 0 March 16, 2022 1:00am June 06, 2022 11:02am take three capsules with meals Start: 03-16-2022 End: 06-06-2022 take 3 capsules by mouth three times daily at mealtime Uhzigp-Bkzvmpxi-Smumssn (Zenpep) 40,000-126,000- 168,000 unit capsule,delayed release(DR/EC) Discontinued 3 NMA PO THREE TIMES A DAY 189 March 16, 2022 1:00am June 06, 2022 11:02am take three capsules with meals Start: 03-16-2022 End: 06-06-2022 take 3 capsules by mouth three times daily at mealtime Tkqysk-Hfceurnt-Qntpqmj (Zenpep) 40,000-126,000- 168,000 unit capsule,delayed release(DR/EC) Discontinued 3 CAP PO THREE TIMES A DAY 189 March 16, 2022 12:00am June 06, 2022 10:02am take three capsules with meals Start: 03-16-2022 End: 06-06-2022 take 3 capsules by mouth three times daily at mealtime Ximwmx-Gnfodjjv-Loulxha (Zenpep) 40,000-126,000- 168,000 unit capsule,delayed release(DR/EC) Discontinued 3 CAP PO THREE TIMES A DAY 189 March 16, 2022 1:00am June 06, 2022 11:02am take three capsules with meals Start: 03-16-2022 take 3 capsules by m outh three times daily at mealtime Qohwnh-Dgjhfbge-Xnpygcr (Zenpep) 40,000-126,000- 168,000 unit capsule,delayed release(DR/EC) Active [...] above: Take 1 tablet by vaughn th as needed. medroxyPROGESTERone acetate 10 mg oral tablet (20 sources) Progestin Start: 10-17-2023 End: 07-24-2024 Medroxyprogesterone 10 mg tablet Discontinued 10 mg PO .COMPLEX 18 06October 17, 2023 12:00am July 24, 2024 1:45pm 10 mg orally first 10 days each month; T Start: 10-03-2022 End: 12-18-2022 Medroxyprogesterone 10 mg ta blet Discontinued 10 mg PO daily 10 11 20October 03, 2022 12:00am December 18, 2022 4:33pm Take daily X 10 days to induce menses. Repeat every 3 months if no spontaneous menses Start: 10-03-2022 End: 12-18-2022 Start: 03-17-2022 Medroxyprogest erone Active 5 MG PO DAILY March 17, 2022 12:00am take if no menses x 90 days for 10 days and repeat every 90 days as needed Start: 09-28-2021 Medroxyprogest erone Active 10 MG PO daily 11 28September 28, 2021 12:00am Take daily for 10 days if no spontaneous menses every 3 months metroNIDAZOLE 500 mg oral tablet (20 sources) Nitroimidazole Antimicrobial Start: 09-24-2023 End: 10-19-2023 take 1 tablet by mouth twice daily Metronidazole 500 mg tablet Discontinued 500 mg PO TWICE A DAY September 24, 2023 12:00am October 19, 2023 9:18am Start: 01-24-2022 End: 04-04-2022 take 1 tablet by mouth every eight hours Metronidazole 500 mg tablet Discontinued 500 mg PO Q8H 30 10 January 24, 2022 1:00am April 04, 2022 11:02am Start: 01-24-2022 End: 04-04-2022 naproxen 500 mg oral tablet (20 sources) Nonsteroidal Anti-inflammatory Drug Start: 03-25-2019 End: 01-03-2021 take 1 tablet by mouth twice daily as needed Naproxen 500 mg tablet Discontinued 500 mg PO TWICE A DAY as needed December 09, 2020 10:08am January 03, 2021 9:51am Start: 03-25-2019 End: 04-04-2022 take 1 tablet by mouth every twelve hours at mealtime Naproxen 500 mg tablet Discontinued 500 mg PO .COMPLEX 30 2 January 03, 2021 1:00am April 04, 2022 11:02am 500 mg PO Q12 hr first 3 days of menses; administer with food or milk nitrofurantoin, macrocrystals 25 mg / nitrofurantoin, monohydrate 75 mg oral capsule (20 sources) Nitrofuran Antibacterial Start: 10-03-2022 End: 10-10-2022 take 1 capsule by mouth twice daily at mealtime Nitrofurantoin Monohyd/M-Cryst (Macrobid) 100 mg capsule Discontinued 100 mg PO TWICE A DAY 14 7 0 October 03, 2022 12:00am October 09, 2022 12:00am October 10, 2022 12:03am must administer with a meal/food NORETHINDRONE-ETHINY L ESTRAD (ORTHO-NOVUM , 28, ORAL) (3 sources) End: 12-12-2021 NORETHINDRONE-ETHIN YL ESTRAD (ORTHO-NOVUM , 28, ORAL) Take by mouth. 12/12/2021 Discontinued End: 12-12-2021 NORETHINDRONE-ETHINYL ESTRAD (ORTHO-NOVUM , 28, ORAL) Take by mouth. 0 12/12/2021 Discontinued NORETHINDRONE-ET HINYL ESTRAD (ORTHO-NOVUM , 28, ORAL) Take by mouth. 0 Active Comment on above: Take by mouth. promethazine hydrochloride 25 mg oral tablet (20 sources) Phenothiazine Start: 3 End: take 1 tablet by mouth three times daily as needed for nausea and vomiting Promethazine 25 mg tablet Discontinued 25 mg PO THREE TIMES A DAY as needed for nausea and vomiting 20 0 August 15, 2022 12:00am October 03, 2022 [...] 6 HOURS NEEDED as needed for Nausea 10 0 January 07, 2019 1:00am January 03, 2021 9:51am Start: 01-07-2019 End: 01-03-2021 Start: 05-30-2016 End: 06-02-2016 Phenergan 25 mg oral tablet Dose : 25 mg = 1 tab(s), PO, q6hr, PRN as needed for nausea/vomiting, # 12 tab(s), 0 Refill(s) Start Date: 05/30/16 Stop Date: 06/02/16 Status: Ordered Start: 05-30-2016 End: 06-02-2016 Phenergan 25 mg rectal suppo sitory Dose : 25 mg = 1 supp, UT, q6hr, PRN as needed for nausea/vomiting, # [...] Take 40 mg by mouth twice daily. spironolactone 50 mg oral tablet (20 sources) Aldosterone Antagonist Start: 08-09-19 End: 01-24-20 take 1 tablet by mouth twice daily Spironolactone 50 mg tablet Discontinued 0 .ROUTE .COMPLEX 60 1 October 03, 2023 1:43pm October 17, 2023 1:06pm diuretic TAKE 1 TABLET BY MOUTH TWICE A DAY Start: 08-08-2021 End: 12-31-2023 Spironolactone 50 mg tablet Discontinued 25 mg PO TWICE A DAY January 24, 2022 1:00am August 04, 2022 3:02pm Start: 08-08-2021 End: 09-28-2021 take 1 tablet by mouth once daily Spironolactone 50 mg tablet Discontinued 0 .ROUTE .COMPLEX 28 0 September 09, 2021 4:05pm September 28, 2021 9:26am TAKE 1 TABLET BY MOUTH DAILY Start: 08-08-2021 End: 05-16-2023 Comment on above: Take by mouth. sucralfate 1000 mg oral tablet (20 sources) Aluminum Complex Start: 10-03-2023 End: 10-19-2023 take 1 tablet by mouth once daily before mealtime Sucralfate 1 gram tablet Discontinued 1 g PO THREE TIMES A DAY October 17, 2023 12:00am October 19, 2023 9:19am 1 g orally Take on an empty stomach. Hour before meals-lunch and dinner; do not take within 2 hours before or after lithium Start: 10-03-2023 End: 01-24-2024 (7 sources) Start: 07-08-2024 End: 09-04-2024 Start: 05-29-2024 Start: 09-28-2023 Start: 03-20-2023 Start: 03-16-2022 End: 06-06-2022 Start: 01-24-2022 Start: 11-11-2015 End: 12-09-2020 Problems Active Problems Problem Classification Problem Date Documented Da te Episodic/Chronic Abdominal pain (16 sources) Left upper quadrant pain; Translations: [Left upper quadrant pain] Onset: 11-13-2023 10-04-2023 Episodic Anxiety disorders (11 sources) Anxiety; Translations: [Anxiety disorder, unspecified] Onset: [...] and US:nl naproxen Miscellaneous mental health disorders (11 sources) Binge eating disorder; Translations: [Binge eating disorder, moderate] Onset: 05-16-2024 05-16-2024 Chronic Mood disorders (20 sources) Bipolar I disorder; Translations: [Bipolar disorder, unspecified] Onset: 05-20-2016 08-21-2016 Chronic Noninfectious gastroenteritis (20 sources) Colitis; Translations: [Noninfective gastroenteritis and colitis, unspecified] 02-01-2022 Episodic Other bone disease and musculoskeletal deformities (8 sources) Juvenile osteochondrosis of spine; 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, site unspecified] Onset: 01-31-2012 05-16-2024 Chronic Other connective tissue disease (1 source) Pain in left foot; Translations: [Pain in left foot] 01-07-2020 Episodic Other connective tissue disease (14 sources) Pain in right arm; Translations: [Pain [...] syndrome; Translations: [PCOS (polycystic ovarian syndrome)] Onset: 02-25-2024 Chronic Other female genital disorders (20 sources) Abnormal uterine bleeding; Translations: [Abnormal uterine and vaginal bleeding, unspecified] Onset: 12-14-2020 Chronic Other female genital disorders (1 source) Other specified noninflammatory disorders of vagina; Translations: [Other specified noninflammatory disorders of vagina] Onset: 09-08-2024 Episodic Other gastrointestinal disorders (1 source) Irritable bowel syndrome with diarrhea; Translations: [Irritable bowel syndrome with diarrhea] 05-16-2024 Chronic Other gastrointestinal disorders (8 sources) Irritable bowel syndrome; Translations: [Irritable bowel syndrome without diarrhea] Onset: 11-26-2015 05-16-2024 Chronic Other gastrointestinal disorders (20 sources) Diarrhea; Translations: [Diarrhea, unspecified] 01-08-2019 Episodic Other gastrointestinal disorders (14 sources) Mass of abdominal cavity structure; Translations: [Intra-abdominal and pelvic swelling, mass and lump, unspecified site] 10-02-2023 Episodic Other injuries and conditions due to external causes (14 sources) Open wound; Translations: [Other injury of unspecified body region, initial encounter] 12-05-2023 Episodic Other liver diseases (20 sources) Steatosis of liver; Translations: [Fatty (change of) liver, not elsewhere classified] Onset: 02-09-2023 01-30-2023 Chronic Other liver diseases (6 sources) Fatty (change of) liver, not elsewhere classified; Translations: [Other chronic nonalcoholic liver disease] Onset: 05-16-2024 01-30-2023 Chronic Other nervous system disorders (14 sources) Neuropathy; Translations: [Polyneuropathy, unspecified] 12-05-2023 Chronic Other nervous system disorders (1 source) Loss of sense of smell; Translations: [Anosmia] Episodic Other nervous system disorders (20 sources) Paresthesia of right lower limb; Translations: [Paresthesia of skin] 10-13-2020 Episodic Other nervous system disorders (8 sources) Paresthesia; Translations: [Paresthesia of skin] 06-03-2024 [...] Chronic Other nutritional; endocrine; and metabolic disorders (17 sources) Obesity; Translations: [Obesity, unspecified] 03-20-2023 Chronic [...] conditions (not mental disorders or infectious disease) (15 sources) CT of abdomen abnormal; Translations: [Abnormal [...] sources) Syncope; Translations: [Syncope and collapse] Onset: 09-10-2024 12-09-2022 Episodic Unclassified (2 sources) Binge eating disorder, moderate; Translations: [Binge eating disorder, moderate] Onset: 05-16-2024 Unclassified (1 source) Obesity, Class III, BMI 40-49.9 (morbid obesity) ([facility]); Translations: [Obesity, Class III, BMI 40-49.9 (morbid obesity) ([facility])] Onset: 10-26-2023 Unclassified (1 source) PCOS Onset: 07-15-2024 Viral infection (20 sources) Disease caused by 2019-nCoV; Translations: [COVID-19] 05-28-2020 Episodic Past or Other Problems Problem Classification Problem Date Documented Da te Episodic/Chronic Blindness and vision defects (20 sources) Diplopia; Translations: [Other subjective visual disturbances] Onset: 08-21-2016 08-21-2016 Episodic Cardiac dysrhythmias (20 sources) Palpitations; Translations: [Palpitations] Onset: 07-11-2023 05-16-2024 Episodic Diabetes mellitus without complication (8 sources) Prediabetes; Translations: [Prediabetes] Onset: 05-16-2024 Resolved: 05-16-2024 05-16-2024 Episodic Genitourinary symptoms and ill-defined conditions (1 source) Dysuria; Translations: [Dysuria] Onset: 03-07-2024 Episodic Headache; including migraine (20 sources) Headache; Translations: [Headache] Onset: 08-21-2016 08-21-2016 Episodic Nausea and vomiting (20 sources) Nausea and vomiting; Translations: [Nausea with vomiting, unspecified] Onset: 05-16-2024 Episodic Nonmalignant breast conditions (15 sources) Abscess of breast; Translations: [Abscess of the breast and nipple] Onset: 02-22-2024 12-05-2023 Episodic Nonspecific chest pain (20 sources) Chest pain; Translations: [Chest pain, unspecified] Onset: 05-20-2024 01-23-2022 Episodic Other aftercare (2 sources) Other detention (current) drug therapy; Translations: [Other terminal gauger supervisor (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) drug therapy] Onset: 12-05-2023 Episodic Other [...] [Hirsutism] Onset: 10-17-2023 Episodic Other skin disorders (8 sources) Hidradenitis; Translations: [Hidradenitis suppurativa] Onset: 05-16-2024 05-16-2024 Episodic Other skin disorders (1 source) Localized swelling, mass and lump, left upper limb; Translations: [Localized swelling, mass and lump, left upper limb] Onset: 12-13-2023 Episodic Screening and history of mental health and substance abuse codes (9 sources) H/O: psychiatric disorder; Translations: [Personal history of other mental and behavioral disorders] Onset: 05-16-2024 05-16-2024 Episodic Suicide and intentional self-inflicted injury (20 sources) Suicidal thoughts; Translations: [Suicidal ideations] Onset: 06-19-2016 04-07-2023 Episodic Results Test Name Value Interpretation Reference Range Facility [facility] 09-18-[address] 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 What is your City of Residence? [facility] [address] [facility] [address] What is your insurance? Payor: [facility] MEDICAID / Plan: [facility] MEDICAID / Product Type: Medicaid / How many people live in your household? 1 What is your household income? $967 monthly $11,604 annually Are there any other factors that would qualify you for this program? n/a Notes: n/a Signature: KANU Helms Patient Name: Marion Gutierrez Date: 09/18/2024 Time: 11:32 AM Pager/Contact #: [phone] During this patient contact I spent approximately 15 minutes in counseling regarding [id number]. Allergies As of Date: 09/18/2024 Noted Allergy Reaction ONDANSETRON 07/14/2016 10 - [...] - Intolerance Date Reviewed: 07/15/2024 Reviewed by: Mane Bragg, ANJANA - Fully Assessed Prescriptions as of 09/18/2024 - amLODIPine (NORVASC) 2.5 mg tablet Take [...] after breakfast. Problem List As Of Date 09/18/2024 Noted Resolved Bipolar disorder (HCC) [F31.9] 05/20/2016 [...] [T50.90*07/14/2016 Suicide attempt (HCC) [T14.91XA] 06/19/2016 Suicidal ideati (more content not 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 Normal [facility] L3410.9992on [place]-05[place]2024 [facility] [place] . [facility] Comment on above: Order Comment: ARPIT OLSON/[id number] VG Result Comment: Test Ordered: [id number] NuSwab Vaginitis (VG)Test(s) 281686- Atopobium vaginae; 329550- BVAB 2;960118- Megasphaera 1was developed and its performance characteristicsdetermined by [facility]. It has not been cleared or approvedby the Food and Drug Administration.Test(s) 076435-Mwmvjgi albicans, DAMARIS; 372837-Yqbceng glabrata, NAAwas developed and its performance characteristicsdetermined by [facility]. It has not been cleared or approvedby the Food and Drug Administration. Atopobium vaginae Low - 0 Score =G Reference Range: . BVAB 2 Low - 0 Score =G Reference Range: . Megasphaera 1 Low - 0 Score =G Reference Range: .Calculate total score by adding the 3 individual bacterialvaginosis (BV) marker scores together. Total score isinterpreted as follows:Total score 0-1: Indicates the absence of BV.Total score 2: Indeterminate for BV. Additional clinical data should be evaluated to establish a diagnosis.Total score 3-6: Indicates the presence of BV.Aleena albicans, DAMARIS Negative =G Reference Range: NegativeCandida glabrata, DAMARIS Negative =G Reference Range: NegativeTrich vag by DAMARIS Negative =G Reference Range: NegativePerformed at: =G - [facility] [address] [id number] Director: Idalia Yoo MD, Phone: [phone] at: CB - [facility] [address] [place], [place] [id number] Director: Neeraj Marte PhD, Phone: [phone] Performed By: #### L 3410.9992, L400.0001, L500.2500, L100.0100, M100.2200 ####[facility] [address] [place], [place], [id number] Lithiumon 09-05-2024 LI 0.53 mmol/L Low 0.60-1.20 [facility] Comment on above: Order Comment: RESUL TS ARE DELAYED DUE TO TUBE TELLER MAINTENANCE/QC TASKS Performed By: #### L 562.7797 ####[facility] [address] [place], [place], [address] Absolute lymphocyte countOrd ered By: Alexandr Smith on 09-04-2024 Lymphocytes Auto (Unsp spec) [#/Vol] 2.36 10*3/uL 0.83-4.51 [facility] Absolute neutrophil countOrd ered By: Alexandr Smith on 09-04-2024 Neutrophils (Bld) [#/Vol] 3.9 10*3/uL 2.0-7.7 [facility] Anion gap in Serum or Plasma Ordered By: Alexandr Smith on 09-04-2024 Anion gap [Moles/Vol] 12 mmol/L - [facility] Automated lymphocyte count a s percentage of total leukocytesOrdered By: Alexandr Smith on 09-04-2024 Lymphocytes/100 WBC Auto (Unsp spec) 33.0 % [facility] BUN/creatinine ratioOrdered By: Alexandr Smith on 09-04-2024 Urea nitrogen/Creatinine [Mass ratio] 17.9 mg/mg 12-08 [facility] Basic Metabolic Profile (BMP )on 09-04-2024 BUN/CRE 17.9 RATIO Normal 10-20 [facility] Comment on above: Performed By: #### L 501.5200, L100.0100, L500.2500 ####[facility] [address] [place], [address] Calcium [Mass/Vol] 9.1 mg/dL Normal 7.6-11.0 [facility] Comment on above: Performed By: #### L 501.5200, L100.0100, L500.2500 ####[facility] [address] [place], [address] Chloride [Moles/Vol] 105 mmol/L Normal 98-108 [facility] Comment on above: Performed By: #### L 501.5200, L100.0100, L500.2500 ####[facility] [address] [place], [address] CO2 [Moles/Vol] 21.9 mmol/L Normal 21.0-32.0 [facility] Comment on above: Performed By: #### L 501.5200, L100.0100, L500.2500 ####[facility] [address] [place], [address] Creatinine [Mass/Vol] 0.57 mg/dL Low 0.70-1.20 [facility] Comment on above: Performed By: #### L 501.5200, L100.0100, L500.2500 ####[facility] [address] [place], [address] ECRCL 210.24 ml/min Normal 50-250 [facility] Comment on above: Performed By: #### L 501.5200, L100.0100, L500.2500 ####[facility] [address] [place], [address] GAP 12 Normal 5-15 [facility] Comment on above: Performed By: #### L 501.5200, L100.0100, L500.2500 ####[facility] [address] [place], [address] GFR/1.73 sq M.predicted among non-blacks MDRD (S/P/Bld) [Vol rate/Area] 128 mL/min/{1.73_m2} Normal >60 [facility] Comment on above: Result Comment: mL/m in/1.73m2 CKD-EPI Creatinine Equation (2020) Performed By: #### L 501.5200, L100.0100, L500.2500 ####[facility] [address] [place], [address] Glucose [Mass/Vol] 117 mg/dL High 70-99 [facility] Comment on above: Performed By: #### L 501.5200, L100.0100, L500.2500 ####[facility] [address] [place], [address] Potassium [Moles/Vol] 4.1 mmol/L Normal 3.3-5.1 [facility] Comment on above: Result Comment: Hemo lysis present, Results??could be affected.?? Performed By: #### L 501.5200, L100.0100, L500.2500 ####[facility] [address] [place], [address] Sodium [Moles/Vol] 138 mmol/L Normal 133-145 [facility] Comment on above: Performed By: #### L 501.5200, L100.0100, L500.2500 ####[facility] [address] [place], [address] Urea nitrogen [Mass/Vol] 10 mg/dL Normal 4-19 [facility] Comment on above: Performed By: #### L 501.5200, L100.0100, L500.2500 ####[facility] [address] [place], [address] Basophil percentageOrdered B y: Alexandr Smith on 09-04-2024 Basophils/100 WBC (Bld) 0.7 % 0-1 [facility] Blood manual differential co mment interpretation (narrative result)Ordered By: Alexandr Smith on 09-04-2024 Manual differential comment [place] (Bld) [Interp] SCANNED [facility] Brain/Head without Contrasto n 09-04-2024 Brain/Head without Contrast Normal [facility] CBC W/Diff, Automatedon 08-19 SMEAR COMMENT SCANNED Normal [facility] Comment on above: Performed By: #### L 501.5200, L100.0100, L500.2500 ####[facility] [address] [place], [place], [id number] Carbon dioxide, total [Moles /volume] in Central venous bloodOrdered By: Alexandr Smith on 09-04-2024 CO2 [Moles/Vol] 21.9 mmol/L 21.0-32.0 [facility] Chloride assayOrdered By: Shannen Smith on 09-04-2024 Chloride [Moles/Vol] 105 mmol/L 98-108 [facility] Emergency Department Summary on 09-04-2024 Emergency Department Summary Normal [facility] Eosinophil percentageOrdered By: Alexandr Smith on 09-04-2024 Eosinophils/100 WBC (Bld) 1.4 % 0-5 [facility] Erythrocyte distribution wid th ratioOrdered By: Alexandr Smith on 09-04-2024 Erythrocyte distribution width (RBC) [Ratio] 14.4 % 11.6-14.6 [facility] Erythrocyte distribution wid th standard deviationOrdered By: Alexandr Smith on 09-04-2024 Erythrocyte distribution width (RBC) [Ratio] 43.3 fl 35.1-43.9 [facility] Glomerular filtration rate ( GFR) estimation/1.73 sq m using serum, plasma, or whole bOrdered By: Alexandr Smith on 09-04-2024 GFR/1.73 sq M.predicted among non-blacks MDRD (S/P/Bld) [Vol rate/Area] 128 mL/min/{1.73_m2} >60 [facility] Comment on above: mL/min/1.73m2 CKD-EP I Creatinine Equation (2020) Hematocrit Auto (Bld) [Volum e fraction]Ordered By: Alexandr Smith on 09-04-2024 Hematocrit (Bld) [Volume fraction] 38.0 % 37-47 [facility] Hemoglobin measurementOrdere d By: Alexandr Smith on 09-04-2024 Hemoglobin (Bld) [Mass/Vol] 12.3 g/dL 12.0-15.0 [facility] Immature granulocytes/100 WB C Auto (Bld)Ordered By: Alexandr Smith on 09-04-2024 Immature granulocytes/100 WBC (Bld) 0.400 % 0.0-0.9 [facility] Comment on above: IG% - Immature Granu locytes (promyelocytes, myelocytes and metamyelocytes) > 1% indicates that a LEFT SHIFT is Present. MCV (mean corpuscular volume ) determinationOrdered By: Alexandr Smith on 09-04-2024 MCV (RBC) [Entitic vol] 83.0 fL 81-99 [facility] Magnesiumon 09-04-2024 Magnesium [Mass/Vol] 2.1 mg/dL Normal 1.5-2.2 [facility] Comment on above: Performed By: #### L 501.5200, L100.0100, L500.2500 ####[facility] [address] [place], [address] Magnesium measurement (mass/ volume)Ordered By: Alexandr Smith on 09-04-2024 Magnesium (Unsp spec) [Mass/Vol] 2.1 mg/dL 1.5-2.2 [facility] Mean corpuscular hemoglobin (MCH) determinationOrdered By: Alexandr Smith on 09-04-2024 MCH (RBC) [Entitic mass] 26.9 pg Low 27.0-32.0 [facility] Mean corpuscular hemoglobin concentration (MCHC) determinationOrdered By: Alexandr Smith on 09-04-2024 MCHC (RBC) [Mass/Vol] 32.4 g/dL 32-36 [facility] Mean platelet volume determi nationOrdered By: Alexandr Smith on 09-04-2024 Platelet mean volume (Bld) [Entitic vol] 11.4 fL 6.2-12.0 [facility] Monocyte percentageOrdered B y: Alexandr Smith on 09-04-2024 Monocytes/100 WBC (Bld) 9.8 % 0-10 [facility] Neutrophil percentageOrdered By: Alexandr Smith on 09-04-2024 Neutrophils/100 WBC (Bld) 54.7 % 47-70 [facility] Nucleated red blood cell per centageOrdered By: Alexandr Smith on 09-04-2024 Nucleated RBC/100 WBC (Bld) [Ratio] 0 % 0-5 [facility] Platelet countOrdered By: Shannen Smith on 09-04-2024 Platelets (Bld) [#/Vol] 241 10*3/uL 150-450 [facility] Potassium measurement (mass/ volume)Ordered By: Alexandr Smith on 09-04-2024 Potassium (Unsp spec) [Mass/Vol] 4.1 mmol/L 3.3-5.1 [facility] Comment on above: Hemolysis present, R esults could be affected. RBC Auto (Bld) [#/Vol]Ordere d By: Alexandr Smith on 09-04-2024 RBC (Bld) [#/Vol] 4.58 10*6/uL 4.2-5.4 [facility] Serum creatinine measurement (mass/volume)Ordered By: Alexandr Smith on 09-04-2024 Creatinine [Mass/Vol] 0.57 mg/dL Low 0.70-1.20 [facility] Serum glucose measurement (m ass/volume)Ordered By: Alexandr Smith on 09-04-2024 Glucose [Mass/Vol] 117 mg/dL High 70-99 [facility] Serum or plasma calcium cherelle urement (mass/volume)Ordered By: Alexandr Smtih on 09-04-2024 Calcium [Mass/Vol] 9.1 mg/dL 7.6-11.0 [facility] Serum or plasma urea nitroge n measurement (mass/volume)Ordered By: Alexandr Smith on 09-04-2024 Urea nitrogen [Mass/Vol] 10 mg/dL 4-19 [facility] Sodium levelOrdered By: Samy Smith on 09-04-2024 Sodium [Moles/Vol] 138 mmol/L 133-145 [facility] Urine Cultureon 09-04-2024 URC Mixed Gram Pos Gram Neg Org [place] Count 25,000-50,000 [facility] Mixed contaminants. Submit a new specimen if indicated. Normal [facility] Comment on above: Performed By: #### L 3410.9992, L400.0001, L500.2500, L100.0100, M100.2200 ####[facility] [address] [place], [place], [address] White blood cell (WBC) count Ordered By: Alexandr Smith on 09-04-2024 WBC (Bld) [#/Vol] 7.2 10*3/uL 4.4-11.0 [facility] Absolute lymphocyte countOrd ered By: [facility] on 09-02-2024 Lymphocytes Auto (Unsp spec) [#/Vol] 2.46 10*3/uL 0.83-4.51 [facility] Absolute neutrophil countOrd ered By: [facility] on 09-02-2024 Neutrophils (Bld) [#/Vol] 5.1 10*3/uL 2.0-7.7 [facility] Anion gap in Serum or Plasma Ordered By: [facility] Naina Da Silva on 09-02-2024 Anion gap [Moles/Vol] 10 mmol/L 07-03 [facility] Automated lymphocyte count a s percentage of total leukocytesOrdered By: [facility] Naina Da Silva on 09-02-2024 Lymphocytes/100 WBC Auto (Unsp spec) 29.4 % [facility] BUN/creatinine ratioOrdered By: [facility] Naina Da Silva on 09-02-2024 Urea nitrogen/Creatinine [Mass ratio] 22.5 mg/mg High 12-08 [facility] Basic Metabolic Profile (BMP )on 09-02-2024 BUN/CRE 22.5 RATIO High 12-08 [facility] Comment on above: Performed By: #### L 3410.9992, L400.0001, L500.2500, L100.0100, M100.2200 ####[facility] [address] [place], [address] Calcium [Mass/Vol] 9.3 mg/dL Normal 7.6-11.0 [facility] Comment on above: Performed By: #### L 3410.9992, L400.0001, L500.2500, L100.0100, M100.2200 ####[facility] [address] [place], [address] Chloride [Moles/Vol] 107 mmol/L Normal 98-108 [facility] Comment on above: Performed By: #### L 3410.9992, L400.0001, L500.2500, L100.0100, M100.2200 ####[facility] [address] [place], [address] CO2 [Moles/Vol] 22.4 mmol/L Normal 21.0-32.0 [facility] Comment on above: Performed By: #### L 3410.9992, L400.0001, L500.2500, L100.0100, M100.2200 ####[facility] [address] [place], [address] Creatinine [Mass/Vol] 0.54 mg/dL Low 0.70-1.20 [facility] Comment on above: Performed By: #### L 3410.9992, L400.0001, L500.2500, L100.0100, M100.2200 ####[facility] [address] [place], [address] GAP 10 Normal 5-15 [facility] Comment on above: Performed By: #### L 3410.9992, L400.0001, L500.2500, L100.0100, M100.2200 ####[facility] [address] [place], [address] GFR/1.73 sq M.predicted among non-blacks MDRD (S/P/Bld) [Vol rate/Area] 129 mL/min/{1.73_m2} Normal >60 [facility] Comment on above: Result Comment: mL/m in/1.73m2 CKD-EPI Creatinine Equation (2020) Performed By: #### L 3410.9992, L400.0001, L500.2500, L100.0100, M100.2200 ####[facility] [address] [place], [address] Glucose [Mass/Vol] 90 mg/dL Normal 70-99 [facility] Comment on above: Performed By: #### L 3410.9992, L400.0001, L500.2500, L100.0100, M100.2200 ####[facility] [address] [place], [address] Potassium [Moles/Vol] 4.0 mmol/L Normal 3.3-5.1 [facility] Comment on above: Performed By: #### L 3410.9992, L400.0001, L500.2500, L100.0100, M100.2200 ####[facility] [address] [place], [address] Sodium [Moles/Vol] 139 mmol/L Normal 133-145 [facility] Comment on above: Performed By: #### L 3410.9992, L400.0001, L500.2500, L100.0100, M100.2200 ####[facility] [address] [place], [address] Urea nitrogen [Mass/Vol] 12 mg/dL Normal 4-19 [facility] Comment on above: Performed By: #### L 3410.9992, L400.0001, L500.2500, L100.0100, M100.2200 ####[facility] [address] [place], [address] Basophil percentageOrdered B y: [facility] Naina Da Silva on 09-02-2024 Basophils/100 WBC (Bld) 0.5 % 0-1 [facility] Bilirubin Test strip Ql (U)O rdered By: [facility] Naina Avinash on 09-02-2024 Bilirubin Ql (U) Negative Negative [facility] CBC W/Diff, Automatedon 08-19 Absolute Lymph 2.46 X10 3/uL Normal 0.83-4.51 [facility] Comment on above: Performed By: #### L 3410.9992, L400.0001, L500.2500, L100.0100, M100.2200 ####[facility] [address] [place], [address] Absolute Neut 5.1 X10 3/uL Normal 2.0-7.7 [facility] Comment on above: Performed By: #### L 3410.9992, L400.0001, L500.2500, L100.0100, M100.2200 ####[facility] [address] [place], [address] Basophils/100 WBC (Bld) 0.5 % Normal 0-1 [facility] Comment on above: Performed By: #### L 3410.9992, L400.0001, L500.2500, L100.0100, M100.2200 ####[facility] [address] [place], [address] Eosinophils/100 WBC (Bld) 0.8 % Normal 0-5 [facility] Comment on above: Performed By: #### L 3410.9992, L400.0001, L500.2500, L100.0100, M100.2200 ####[facility] [address] [place], [address] Erythrocyte distribution width (RBC) [Ratio] 14.3 % Normal 11.6-14.6 [facility] Comment on above: Performed By: #### L 3410.9992, L400.0001, L500.2500, L100.0100, M100.2200 ####[facility] [address] [place], [address] Hematocrit (Bld) [Volume fraction] 35.8 % Low 37-47 [facility] Comment on above: Performed By: #### L 3410.9992, L400.0001, L500.2500, L100.0100, M100.2200 ####[facility] [address] [place], [address] Hemoglobin (Bld) [Mass/Vol] 11.7 g/dL Low 12.0-15.0 [facility] Comment on above: Performed By: #### L 3410.9992, L400.0001, L500.2500, L100.0100, M100.2200 ####[facility] [address] [place], [address] IG% 0.200 Normal 0.0-0.9 [facility] Comment on above: Result Comment: IG% - Immature Granulocytes (promyelocytes, myelocytes andmetamyelocytes) > 1% indicates that a LEFT SHIFT is Present. Performed By: #### L 3410.9992, L400.0001, L500.2500, L100.0100, M100.2200 ####[facility] [address] [place], [address] Lymphocytes/100 WBC (Bld) 29.4 % Normal 19-41 [facility] Comment on above: Performed By: #### L 3410.9992, L400.0001, L500.2500, L100.0100, M100.2200 ####[facility] [address] [place], [address] MCH (RBC) [Entitic mass] 27.0 pg Normal 27.0-32.0 [facility] Comment on above: Performed By: #### L 3410.9992, L400.0001, L500.2500, L100.0100, M100.2200 ####[facility] [address] [place], [address] MCHC (RBC) [Mass/Vol] 32.7 g/dL Normal 32-36 [facility] Comment on above: Performed By: #### L 3410.9992, L400.0001, L500.2500, L100.0100, M100.2200 ####[facility] [address] [place], [address] MCV (RBC) [Entitic vol] 82.5 fL Normal 81-99 [facility] Comment on above: Performed By: #### L 3410.9992, L400.0001, L500.2500, L100.0100, M100.2200 ####[facility] [address] [place], [address] Monocytes/100 WBC (Bld) 8.2 % Normal 0-10 [facility] Comment on above: Performed By: #### L 3410.9992, L400.0001, L500.2500, L100.0100, M100.2200 ####[facility] [address] [place], [address] Neutrophils/100 WBC (Bld) 60.9 % Normal 47-70 [facility] Comment on above: Performed By: #### L 3410.9992, L400.0001, L500.2500, L100.0100, M100.2200 ####[facility] [address] [place], [address] Nucleated RBC (Bld) [#/Vol] 0 10*3/uL Normal 0-5 [facility] Comment on above: Performed By: #### L 3410.9992, L400.0001, L500.2500, L100.0100, M100.2200 ####[facility] [address] [place], [address] Platelet mean volume (Bld) [Entitic vol] 9.2 fL Normal 6.2-12.0 [facility] Comment on above: Performed By: #### L 3410.9992, L400.0001, L500.2500, L100.0100, M100.2200 ####[facility] [address] [place], [address] Platelets (Bld) [#/Vol] 313 10*3/uL Normal 150-450 [facility] Comment on above: Performed By: #### L 3410.9992, L400.0001, L500.2500, L100.0100, M100.2200 ####[facility] [address] [place], [address] RBC (Bld) [#/Vol] 4.34 10*6/uL Normal 4.2-5.4 [facility] Comment on above: Performed By: #### L 3410.9992, L400.0001, L500.2500, L100.0100, M100.2200 ####[facility] [address] [place], [address] RDW SD 43.1 fl Normal 35.1-43.9 [facility] Comment on above: Performed By: #### L 3410.9992, L400.0001, L500.2500, L100.0100, M100.2200 ####[facility] [address] [place], [address] WBC (Bld) [#/Vol] 8.4 10*3/uL Normal 4.4-11.0 [facility] Comment on above: Performed By: #### L 3410.9992, L400.0001, L500.2500, L100.0100, M100.2200 ####[facility] [address] [place], [address] Carbon dioxide, total [Moles /volume] in Central venous bloodOrdered By: [facility] Naina Da Silva on 09-02-2024 CO2 [Moles/Vol] 22.4 mmol/L 21.0-32.0 [facility] Chloride assayOrdered By: [facility] Naina [facility] Silva on 09-02-2024 Chloride [Moles/Vol] 107 mmol/L 98-108 [facility] Eosinophil percentageOrdered By: [facility] 09-02-[facility]24 Eosinophils/100 WBC (Bld) 0.8 % 0-5 [facility] Erythrocyte distribution wid th ratioOrdered By: [facility] Hospital[facility] on 09-02-2024 Erythrocyte distribution width (RBC) [Ratio] 14.3 % 11.6-14.6 [facility] Erythrocyte distribution wid th standard deviationOrdered By: [facility] Avinash on 09-02-2024 Erythrocyte distribution width (RBC) [Ratio] 43.1 fl 35.1-43.9 [facility] Glomerular filtration rate ( GFR) estimation/1.73 sq m using serum, plasma, or whole bOrdered By: [facility] Hospital[facility] on 09-02-2024 GFR/1.73 sq M.predicted among non-blacks MDRD (S/P/Bld) [Vol rate/Area] 129 mL/min/{1.73_m2} >60 [facility] Comment on above: mL/min/1.73m2 CKD-EP I Creatinine Equation (2020) Hematocrit Auto (Bld) [Volum e fraction]Ordered By: [facility] Naina Avinash on 09-02-2024 Hematocrit (Bld) [Volume fraction] 35.8 % Low 37-47 [facility] Hemoglobin measurementOrdere d By: [facility] Naina Avinash on 09-02-2024 Hemoglobin (Bld) [Mass/Vol] 11.7 g/dL Low 12.0-15.0 [facility] Immature granulocytes/100 WB C Auto (Bld)Ordered By: [facility] Naina Avinash 09-02-2024 Immature granulocytes/100 WBC (Bld) 0.200 % 0.0-0.9 [facility] Comment on above: IG% - Immature Granu locytes (promyelocytes, myelocytes and metamyelocytes) > 1% indicates that a LEFT SHIFT is Present. Ketones Test strip Ql (U)Ord ered By: [facility] Nainakourtney Da Silva on 09-02-2024 Ketones Ql (U) Negative Negative [facility] MCV (mean corpuscular volume ) determinationOrdered By: [facility] Naina Da Silva on 09-02-2024 MCV (RBC) [Entitic vol] 82.5 fL 81-99 [facility] Mean corpuscular hemoglobin (MCH) determinationOrdered By: [facility] Naina Da Silva on 09-02-2024 MCH (RBC) [Entitic mass] 27.0 pg 27.0-32.0 [facility] Mean corpuscular hemoglobin concentration (MCHC) determinationOrdered By: [facility] Naina Da Silva on 09-02-2024 MCHC (RBC) [Mass/Vol] 32.7 g/dL 32-36 [facility] Mean platelet volume determi nationOrdered By: REED Da Silva on 09-02-2024 Platelet mean volume (Bld) [Entitic vol] 9.2 fL 6.2-12.0 [facility] Microscopic analysis of urin e for red blood cells (RBC)Ordered By: REED Da Silva on 09-02-2024 Microscopic analysis of urine for red blood cells (RBC) 0 SEEN /hpf 0-5 [facility] Monocyte percentageOrdered B y: DANIELLE Naina Da Silva on 09-02-2024 Monocytes/100 WBC (Bld) 8.2 % 0-10 [facility] Mucus LM Ql (Urine sed)Order ed By: REED Da Silva on 09-02-2024 Mucus Ql (Urine sed) 0 SEEN /hpf [facility] Neutrophil percentageOrdered By: Kimi Da Silva on 09-02-2024 Neutrophils/100 WBC (Bld) 60.9 % 47-70 [facility] Nitrite Test strip Ql (U)Ord ered By: REED Da Silva on 09-02-2024 Nitrite Ql (U) Negative Negative [facility] Nucleated red blood cell per centageOrdered By: REED Da Silva on 09-02-2024 Nucleated RBC/100 WBC (Bld) [Ratio] 0 % 0-5 [facility] Platelet countOrdered By: DANIELLE Da Silva on 09-02-2024 Platelets (Bld) [#/Vol] 313 10*3/uL 150-450 [facility] Potassium measurement (mass/ volume)Ordered By: [facility] Naina Avinash on 09-02-2024 Potassium (Unsp spec) [Mass/Vol] 4.0 mmol/L 3.3-5.1 [facility] Protein Test strip Ql (U)Ord ered By: [facility] Naina Avinash on 09-02-2024 Protein Ql (U) 15 mg/dl High Negative [facility] RBC Auto (Bld) [#/Vol]Ordere d By: [facility] Naina Avinash on 09-02-2024 RBC (Bld) [#/Vol] 4.34 10*6/uL 4.2-5.4 [facility] Serum creatinine measurement (mass/volume)Ordered By: [facility] Nainakourtney Da Silva on 09-02-2024 Creatinine [Mass/Vol] 0.54 mg/dL Low 0.70-1.20 [facility] Serum glucose measurement (m ass/volume)Ordered By: [facility] Nainakourtney Da Silva on 09-02-2024 Glucose [Mass/Vol] 90 mg/dL 70-99 [facility] Serum or plasma calcium cherelle urement (mass/volume)Ordered By: [facility] Nainakourtney Da Silva on 09-02-2024 Calcium [Mass/Vol] 9.3 mg/dL 7.6-11.0 [facility] Serum or plasma urea nitroge n measurement (mass/volume)Ordered By: [facility] Nainakourtney Da Silva on 09-02-2024 Urea nitrogen [Mass/Vol] 12 mg/dL 4-19 [facility] Sodium levelOrdered By: [facility] Nainakourtney Da Silva on 09-02-2024 Sodium [Moles/Vol] 139 mmol/L 133-145 [facility] Squamous epithelial cells de tection in urine sediment by light microscopyOrdered By: [facility] Nainakourtney Da Silva on 09-02-2024 Epithelial cells.squamous LM Ql (Urine sed) 0-5 SEEN /hpf 5-10 [facility] Urinalysis, Completeon 09-02 EPI,SQUAMOUS 0-5 SEEN Normal 5-10 [facility] Comment on above: Order Comment: CLEAN CATCH Performed By: #### L 3410.9992, L400.0001, L500.2500, L100.0100, M100.2200 ####[facility] [address] [place], [address] WBC 0-5 SEEN Normal 0-5 [facility] Comment on above: Order Comment: CLEAN CATCH Performed By: #### L 3410.9992, L400.0001, L500.2500, L100.0100, M100.2200 ####[facility] [address] [place], [address] BACTERIA 0 SEEN Normal None Seen [facility] Comment on above: Order Comment: CLEAN CATCH Performed By: #### L 3410.9992, L400.0001, L500.2500, L100.0100, M100.2200 ####[facility] [address] [place], [address] Mucus Ql (Urine sed) 0 SEEN Normal [facility] Comment on above: Order Comment: CLEAN CATCH Performed By: #### L 3410.9992, L400.0001, L500.2500, L100.0100, M100.2200 ####[facility] [address] [place], [address] RBC 0 SEEN Normal 0-5 [facility] Comment on above: Order Comment: CLEAN CATCH Performed By: #### L 3410.9992, L400.0001, L500.2500, L100.0100, M100.2200 ####[facility] [address] [place], [address] Urine clarityOrdered By: REED Da Silva on 09-02-2024 Clarity (U) Clear Clear [facility] Urine color determinationOrd ered By: REED Da Silva on 09-02-2024 Color (U) YELLOW Yellow [facility] Urine cultureOrdered By: REED Da Silva on 09-02-2024 Bacteria identified Cx Nom (U) Mixed Gram Pos & Gram Neg Org Abnormal [facility] Urine glucose detectionOrder ed By: REED Da Silva on 09-02-2024 Glucose Ql (U) Normal mg/dl Normal [facility] Urine leukocyte esterase det ection by dipstickOrdered By: [facility] Naina Avinash on 09-02-2024 Leukocyte esterase Test strip Ql (U) Negative Negative [facility] Urine pHOrdered By: [facility] Althea oconnell Avinash on 09-02-2024 pH (U) 6.0 [pH] 5.0 - 8.0 [facility] Urine sediment bacteria coun t by microscopy (number/high power field)Ordered By: [facility] Naina Da Silva on 09-02-2024 Bacteria LM.HPF (Urine sed) [#/Area] 0 /[HPF] None Seen [facility] Urine specific gravity measu rementOrdered By: [facility] Nainaben Da Silva on 09-02-2024 Specific gravity (U) [Rel density] 1.015 1.002-1.030 [facility] Urine urobilinogen measureme ntOrdered By: [facility] Nainaben Da Silva on 09-02-2024 Urobilinogen Ql (U) Normal mg/dl Normal [facility] White blood cell (WBC) count Ordered By: [facility] Naina Avinash on 09-02-2024 WBC (Bld) [#/Vol] 8.4 10*3/uL 4.4-11.0 [facility] White blood cell countOrdere d By: [facility] Naina Da Silva on 09-02-2024 White blood cell count 0-5 SEEN /hpf 0-5 [facility] CNPNon 08-28-2024 CNPN Telephone ([facility]) -------- MARION GUTIERREZ ([id number]) 1995 F Date Time Provider Department 08/28/24 ARSENIO SOLORIO [facility] During your visit today, we recorded the following information about you: Arsenio Solorio LSW 08/28/2024 3:51 PM Signed Endocrinology AND Metabolism Social Work Progress Note Provider Action / FYI N/A Marion Gutierrez [id number] Type of Contact: telephone Endocrine [employer] Referral Reason: [id number]/Exercise Noel Qualification Contact 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 Note/Intervention: n/a [employer] referral placed: n/a Signature: KANU Pathak Patient Name: Marion Gutierrez Date: 08/28/2024 Time: 3:50 PM Pager/Contact #: [phone] During this patient contact I spent approximately [...] - Intolerance Date Reviewed: 07/15/2024 Reviewed by: Mane Bragg, RN - Fully Assessed Reason for Visit: [...] Status:Closed by ARSENIO SOLORIO on 08/28/24 Normal [facility] Magnetic resonance imaging r eportOrdered By: Fantasma Krishnan on 08-08-2024 Study report [facility] Services [address] [place] [address] [id number] MRI Abd WITH and W/O Contrast MR#: [id number] Acct: [id number] Name: MARION GUTIERREZ Rep #: [id number] : 1995 F 28 From: Eloy Krishnan MD PCP: Karuna Lim Kimi [facility] Status: REG CLI Study:MRI Abd WITH and W/O Contrast Date of E xam: 08/07/24 Exam# [id number] Ordering Dr: Robbi Oliva DO PROCEDURE: MRI [...] 2. Other findings as noted. 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 [facility] Work Phone: MRI Abd WITH and W/O Contras ton 08-07-2024 MRI Abd WITH and W/O Contrast Normal [facility] Cardiology Visit Reporton Cardiology Visit Report Normal [facility] CNOVon 07-15-2024 CNOV Office Visit (ENW[facility] ) -------- MARION GUTIERREZ ([id number]) 1995 F Date Time Provider Department 07/15/24 10:40 AM JEY JOHNSON [facility] During your visit today, we recorded the following information about you: Pulse Respiration Blood pressure Weight 61/minute 20/minute 122/78 134.4 kg Height Last Period 1.702 m 06/24/24 Jey Johnson MD 07/16/2024 11:20 PM Addendum Endocrinology and Metabolism Lyme Follow up note Chief complaint: Evaluation of [...] must t (more content not 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 Normal [facility] Gastroenterology Visit Repor ton 07-08-2024 Gastroenterology Visit Report Normal [facility] Arterial study reportOrdered By: Ozzy Greco on 06-23-2024 Noninvasive arteriosclerosis study report [facility] Services [address] [place] [address] Upper Extremity Arterial Study 06/20/24 1006 MR#: [id number] Acct: [id number] Name: MARION GUTIERREZ Rep #:[id number] : 1995 From: Ozzy Masterson Attending Dr: Shawanda Ramires, [facility] [place] tatus: REG CLI Ordering Dr: Shawanda Ramires NP [facility] Usama e: 06/20/24 Location: [facility] Sex: F C Admitted: Reason For Study [...] spasm. Ordering Physician: Shawanda Ramires Referring Physician: [facility] Performed By: Tylor [place], RVT 06/23/24735 Date _ Ozzy Greco MD CC: [employer] Shawanda Ramires; Karuna MCBRIDE [employer] Carina ~ Date Dictated: 06/20/246 Date Transcribed: 06/23/24735 [employer] Attendant: Signed [facility] Work Phone: Upper Extremity Arterial Skyler dyon 06-20-2024 Upper Extremity Arterial Study Normal [facility] Absolute lymphocyte countOrd ered By: Zebulun Beam on 06-10-2024 Lymphocytes Auto (Unsp spec) [#/Vol] 2.20 10*3/uL 0.83-4.51 [facility] Absolute neutrophil countOrd ered By: Zebulun Beam on 06-10-2024 Neutrophils (Bld) [#/Vol] 5.9 10*3/uL 2.0-7.7 [facility] Anion gap in Serum or Plasma Ordered By: Zebulun Beam on 06-10-2024 Anion gap [Moles/Vol] 12 mmol/L 5-15 [facility] Automated lymphocyte count a s percentage of total leukocytesOrdered By: Zebulun Beam on 06-10-2024 Lymphocytes/100 WBC Auto (Unsp spec) 24.7 % 19-41 [facility] BUN/creatinine ratioOrdered By: Zebulun Beam on 06-10-2024 Urea nitrogen/Creatinine [Mass ratio] 12.5 mg/mg 10-20 [facility] Basophil percentageOrdered B y: Zebulun Beam on 06-10-2024 Basophils/100 WBC (Bld) 0.6 % 0-1 [facility] Bilirubin, totalOrdered By: Karuna Lim on 06-10-2024 Bilirubin [Mass/Vol] 0.30 mg/dL 0.00-1.30 [facility] CBC W/Diff, Automatedon 05-21 Absolute Lymph 2.20 X10 3/uL Normal 0.83-4.51 [facility] Comment on above: Performed By: #### L 100.0100, L500.4050 ####[facility] [address] [place], [address] Absolute Neut 5.9 X10 3/uL Normal 2.0-7.7 [facility] Comment on above: Performed By: #### L 100.0100, L500.4050 ####[facility] [address] [place], [address] Basophils/100 WBC (Bld) 0.6 % Normal 0-1 [facility] Comment on above: Performed By: #### L 100.0100, L500.4050 ####[facility] [address] [place], [address] Eosinophils/100 WBC (Bld) 0.2 % Normal 0-5 [facility] Comment on above: Performed By: #### L 100.0100, L500.4050 ####[facility] [address] [place], [address] Erythrocyte distribution width (RBC) [Ratio] 14.3 % Normal 11.6-14.6 [facility] Comment on above: Performed By: #### L 100.0100, L500.4050 ####[facility] [address] [place], [address] Hematocrit (Bld) [Volume fraction] 38.5 % Normal 37-47 [facility] Comment on above: Performed By: #### L 100.0100, L500.4050 ####[facility] [address] [place], [address] Hemoglobin (Bld) [Mass/Vol] 12.7 g/dL Normal 12.0-15.0 [facility] Comment on above: Performed By: #### L 100.0100, L500.4050 ####[facility] [address] [place], [address] IG% 0.300 Normal 0.0-0.9 [facility] Comment on above: Result Comment: IG% - Immature Granulocytes (promyelocytes, myelocytes andmetamyelocytes) > 1% indicates that a LEFT SHIFT is Present. Performed By: #### L 100.0100, L500.4050 ####[facility] [address] [place], [address] Lymphocytes/100 WBC (Bld) 24.7 % Normal 19-41 [facility] Comment on above: Performed By: #### L 100.0100, L500.4050 ####[facility] [address] [place], [address] MCH (RBC) [Entitic mass] 26.7 pg Low 27.0-32.0 [facility] Comment on above: Performed By: #### L 100.0100, L500.4050 ####[facility] [address] [place], [address] MCHC (RBC) [Mass/Vol] 33.0 g/dL Normal 32-36 [facility] Comment on above: Performed By: #### L 100.0100, L500.4050 ####[facility] [address] [place], [address] MCV (RBC) [Entitic vol] 81.1 fL Normal 81-99 [facility] Comment on above: Performed By: #### L 100.0100, L500.4050 ####[facility] [address] [place], [address] Monocytes/100 WBC (Bld) 7.4 % Normal 0-10 [facility] Comment on above: Performed By: #### L 100.0100, L500.4050 ####[facility] [address] [place], [address] Neutrophils/100 WBC (Bld) 66.8 % Normal 47-70 [facility] Comment on above: Performed By: #### L 100.0100, L500.4050 ####[facility] [address] [place], [address] Nucleated RBC (Bld) [#/Vol] 0 10*3/uL Normal 0-5 [facility] Comment on above: Performed By: #### L 100.0100, L500.4050 ####[facility] [address] [place], [address] Platelet mean volume (Bld) [Entitic vol] 9.0 fL Normal 6.2-12.0 [facility] Comment on above: Performed By: #### L 100.0100, L500.4050 ####[facility] [address] [place], [address] Platelets (Bld) [#/Vol] 414 10*3/uL Normal 150-450 [facility] Comment on above: Performed By: #### L 100.0100, L500.4050 ####[facility] [address] [place], [address] RBC (Bld) [#/Vol] 4.75 10*6/uL Normal 4.2-5.4 [facility] Comment on above: Performed By: #### L 100.0100, L500.4050 ####[facility] [address] [place], [address] RDW SD 42.1 fl Normal 35.1-43.9 [facility] Comment on above: Performed By: #### L 100.0100, L500.4050 ####[facility] [address] [place], [address] WBC (Bld) [#/Vol] 8.9 10*3/uL Normal 4.4-11.0 [facility] Comment on above: Performed By: #### L 100.0100, L500.4050 ####[facility] [address] [place], [address] Carbon dioxide, total [Moles /volume] in Central venous bloodOrdered By: Vazquezbulun Beam on 06-10-2024 CO2 [Moles/Vol] 23.3 mmol/L 21.0-32.0 [facility] Chloride assayOrdered By: Ze bulun Beam on 06-10-2024 Chloride [Moles/Vol] 104 mmol/L 98-108 [facility] Comprehensive Metabolic Prof ilon 06-10-2024 Albumin [Mass/Vol] 3.9 g/dL Normal 3.5-5.0 [facility] Comment on above: Performed By: #### L 100.0100, L500.4050 ####[facility] [address] [place], [address] Albumin/Globulin [Mass ratio] 1.2 {ratio} Normal 0.9-2.4 [facility] Comment on above: Performed By: #### L 100.0100, L500.4050 ####[facility] [address] [place], [address] ALK PHOS 64 U/L Normal 35-104 [facility] Comment on above: Performed By: #### L 100.0100, L500.4050 ####[facility] [address] [place], [address] ALT [Catalytic activity/Vol] 28 U/L Normal <=34 [facility] Comment on above: Performed By: #### L 100.0100, L500.4050 ####[facility] [address] [place], [address] AST [Catalytic activity/Vol] 22 U/L Normal <=31 [facility] Comment on above: Performed By: #### L 100.0100, L500.4050 ####[facility] [address] [place], [address] Bilirubin [Mass/Vol] 0.30 mg/dL Normal 0.00-1.30 [facility] Comment on above: Performed By: #### L 100.0100, L500.4050 ####[facility] [address] [place], [address] BUN/CRE 12.5 RATIO Normal 10-20 [facility] Comment on above: Performed By: #### L 100.0100, L500.4050 ####[facility] [address] [place], [address] Calcium [Mass/Vol] 9.4 mg/dL Normal 7.6-11.0 [facility] Comment on above: Performed By: #### L 100.0100, L500.4050 ####[facility] [address] [place], [address] Chloride [Moles/Vol] 104 mmol/L Normal 98-108 [facility] Comment on above: Performed By: #### L 100.0100, L500.4050 ####[facility] [address] [place], [address] CO2 [Moles/Vol] 23.3 mmol/L Normal 21.0-32.0 [facility] Comment on above: Performed By: #### L 100.0100, L500.4050 ####[facility] [address] [place], [address] Creatinine [Mass/Vol] 0.98 mg/dL Normal 0.70-1.20 [facility] Comment on above: Performed By: #### L 100.0100, L500.4050 ####[facility] [address] [place], [address] GAP 12 Normal 5-15 [facility] Comment on above: Performed By: #### L 100.0100, L500.4050 ####[facility] [address] [place], [address] GFR/1.73 sq M.predicted among non-blacks MDRD (S/P/Bld) [Vol rate/Area] 82 mL/min/{1.73_m2} Normal >60 [facility] Comment on above: Result Comment: mL/m in/1.73m2 CKD-EPI Creatinine Equation (2020) Performed By: #### L 100.0100, L500.4050 ####[facility] [address] [place], [address] Globulin (S) [Mass/Vol] 3.3 g/dL Normal 2.2-4.2 [facility] Comment on above: Performed By: #### L 100.0100, L500.4050 ####[facility] [address] [place], [address] Glucose [Mass/Vol] 120 mg/dL High 70-99 [facility] Comment on above: Performed By: #### L 100.0100, L500.4050 ####[facility] [address] [place], [address] Potassium [Moles/Vol] 3.9 mmol/L Normal 3.3-5.1 [facility] Comment on above: Performed By: #### L 100.0100, L500.4050 ####[facility] [address] [place], [address] Sodium [Moles/Vol] 138 mmol/L Normal 133-145 [facility] Comment on above: Performed By: #### L 100.0100, L500.4050 ####[facility] [address] [place], [address] T PROT 7.1 g/dL Normal 5.9-8.4 [facility] Comment on above: Performed By: #### L 100.0100, L500.4050 ####[facility] [address] [place], [address] Urea nitrogen [Mass/Vol] 12 mg/dL Normal 4-19 [facility] Comment on above: Performed By: #### L 100.0100, L500.4050 ####[facility] [address] [place], [address] Eosinophil percentageOrdered By: Karuna Lim on 06-10-2024 Eosinophils/100 WBC (Bld) 0.2 % 0-5 [facility] Erythrocyte distribution wid th ratioOrdered By: Karuna Lim on 06-10-2024 Erythrocyte distribution width (RBC) [Ratio] 14.3 % 11.6-14.6 [facility] Erythrocyte distribution wid th standard deviationOrdered By: Karuna Lim on 06-10-2024 Erythrocyte distribution width (RBC) [Ratio] 42.1 fl 35.1-43.9 [facility] Glomerular filtration rate ( GFR) estimation/1.73 sq m using serum, plasma, or whole bOrdered By: Karuna Lim on 06-10-2024 GFR/1.73 sq M.predicted among non-blacks MDRD (S/P/Bld) [Vol rate/Area] 82 mL/min/{1.73_m2} >60 [facility] Comment on above: mL/min/1.73m2 CKD-EP I Creatinine Equation (2020) Hematocrit Auto (Bld) [Volum e fraction]Ordered By: Karuna Lim on 06-10-2024 Hematocrit (Bld) [Volume fraction] 38.5 % 37-47 [facility] Hemoglobin measurementOrdere d By: Karuna Lim on 06-10-2024 Hemoglobin (Bld) [Mass/Vol] 12.7 g/dL 12.0-15.0 [facility] Immature granulocytes/100 WB C Auto (Bld)Ordered By: Karuna Lim on 06-10-2024 Immature granulocytes/100 WBC (Bld) 0.300 % 0.0-0.9 [facility] Comment on above: IG% - Immature Granu locytes (promyelocytes, myelocytes and metamyelocytes) > 1% indicates that a LEFT SHIFT is Present. Laboratory - Chemistry and C hemistry - challengeOrdered By: Zekwasilun Beam on 06-10-2024 AST [Catalytic activity/Vol] 22 U/L <32 [facility] MCV (mean corpuscular volume ) determinationOrdered By: Karuna Beam on 06-10-2024 MCV (RBC) [Entitic vol] 81.1 fL 81-99 [facility] Mean corpuscular hemoglobin (MCH) determinationOrdered By: Jakin Beam on 06-10-2024 MCH (RBC) [Entitic mass] 26.7 pg Low 27.0-32.0 [facility] Mean corpuscular hemoglobin concentration (MCHC) determinationOrdered By: Zekwasilun Beam on 06-10-2024 MCHC (RBC) [Mass/Vol] 33.0 g/dL 32-36 [facility] Mean platelet volume determi nationOrdered By: Zekwasilun Beam on 06-10-2024 Platelet mean volume (Bld) [Entitic vol] 9.0 fL 6.2-12.0 [facility] Monocyte percentageOrdered B y: Zeshayna Beam on 06-10-2024 Monocytes/100 WBC (Bld) 7.4 % 0-10 [facility] Neutrophil percentageOrdered By: Zekwasiluadalgisa Beam on 06-10-2024 Neutrophils/100 WBC (Bld) 66.8 % 47-70 [facility] No Panel InformationOrdered By: Karuna Beam on 06-10-2024 22 U/L <32 [facility] Nucleated red blood cell per centageOrdered By: Zekwasiluadalgisa Beam on 06-10-2024 Nucleated RBC/100 WBC (Bld) [Ratio] 0 % 0-5 [facility] Platelet countOrdered By: Vazquez Lim on 06-10-2024 Platelets (Bld) [#/Vol] 414 10*3/uL 150-450 [facility] Potassium measurement (mass/ volume)Ordered By: Karuna Lim on 06-10-2024 Potassium (Unsp spec) [Mass/Vol] 3.9 mmol/L 3.3-5.1 [facility] RBC Auto (Bld) [#/Vol]Ordere d By: Karuna Lim on 06-10-2024 RBC (Bld) [#/Vol] 4.75 10*6/uL 4.2-5.4 [facility] Serum creatinine measurement (mass/volume)Ordered By: Karuna Lim on 06-10-2024 Creatinine [Mass/Vol] 0.98 mg/dL 0.70-1.20 [facility] Serum globulin measurementOr dered By: Karuna Lim on 06-10-2024 Globulin (S) [Mass/Vol] 3.3 g/dL 2.2-4.2 [facility] Serum glucose measurement (m ass/volume)Ordered By: Karuna Lim on 06-10-2024 Glucose [Mass/Vol] 120 mg/dL High 70-99 [facility] Serum or plasma alanine godinez otransferase (ALT) measurementOrdered By: Karuna Lim on 06-10-2024 ALT [Catalytic activity/Vol] 28 U/L <35 [facility] Serum or plasma albumin cherelle urement (mass/volume)Ordered By: Karuna Lim on 06-10-2024 Albumin [Mass/Vol] 3.9 g/dL 3.5-5.0 [facility] Serum or plasma albumin/glob ulin mass ratioOrdered By: Karuna Lmi on 06-10-2024 Albumin/Globulin [Mass ratio] 1.2 {ratio} 0.9-2.4 [facility] Serum or plasma alkaline rohit sphatase measurementOrdered By: Karuna Lim on 06-10-2024 ALP [Catalytic activity/Vol] 64 U/L 35-104 [facility] Serum or plasma calcium cherelle urement (mass/volume)Ordered By: Karuna Lim on 06-10-2024 Calcium [Mass/Vol] 9.4 mg/dL 7.6-11.0 [facility] Serum or plasma urea nitroge n measurement (mass/volume)Ordered By: Vazquezbulun Beam on 06-10-2024 Urea nitrogen [Mass/Vol] 12 mg/dL - [facility] Sodium levelOrdered By: Vazquezbu deb Beam on 06-10-2024 Sodium [Moles/Vol] 138 mmol/L 133-145 [facility] Total proteinOrdered By: Juventino ulun Beam on 06-10-2024 Protein [Mass/Vol] 7.1 g/dL 5.9-8.4 [facility] White blood cell (WBC) count Ordered By: Paytonlun Beam on 06-10-2024 WBC (Bld) [#/Vol] 8.9 10*3/uL 4.4-11.0 [facility] 12 Lead EKGon 06-03-2024 12 Lead EKG Normal [facility] Abdomen Limitedon 06-03-2024 Abdomen Limited Normal [facility] Absolute lymphocyte countOrd ered By: Jaylon Galicia on 06-03-2024 Lymphocytes Auto (Unsp spec) [#/Vol] 1.66 10*3/uL 0.83-4.51 [facility] Absolute neutrophil countOrd ered By: Jaylon Galicia on 06-03-2024 Neutrophils (Bld) [#/Vol] 4.2 10*3/uL 2.0-7.7 [facility] Anion gap in Serum or Plasma Ordered By: Jaylon Galicia on 06-03-2024 Anion gap [Moles/Vol] 12 mmol/L 07-03 [facility] Automated lymphocyte count a s percentage of total leukocytesOrdered By: Jaylon Galicia on 06-03-2024 Lymphocytes/100 WBC Auto (Unsp spec) 25.5 % [facility] BUN/creatinine ratioOrdered By: Jaylon Galicia on 06-03-2024 Urea nitrogen/Creatinine [Mass ratio] 17.9 mg/mg - [facility] Basic Metabolic Profile (BMP )on 06-03-2024 BUN/CRE 17.9 RATIO Normal 12-08 [facility] Comment on above: Performed By: #### L 100.0100, L500.2500, L501.4021 ####[facility] [address] [place], [address] Calcium [Mass/Vol] 8.9 mg/dL Normal 7.6-11.0 [facility] Comment on above: Performed By: #### L 100.0100, L500.2500, L501.4021 ####[facility] [address] [place], [address] Chloride [Moles/Vol] 105 mmol/L Normal 98-108 [facility] Comment on above: Performed By: #### L 100.0100, L500.2500, L501.4021 ####[facility] [address] [place], [address] CO2 [Moles/Vol] 22.0 mmol/L Normal 21.0-32.0 [facility] Comment on above: Performed By: #### L 100.0100, L500.2500, L501.4021 ####[facility] [address] [place], [address] Creatinine [Mass/Vol] 0.53 mg/dL Low 0.70-1.20 [facility] Comment on above: Performed By: #### L 100.0100, L500.2500, L501.4021 ####[facility] [address] [place], [address] ECRCL 225.17 ml/min Normal 50-250 [facility] Comment on above: Performed By: #### L 100.0100, L500.2500, L501.4021 ####[facility] [address] [place], [address] GAP 12 Normal 5-15 [facility] Comment on above: Performed By: #### L 100.0100, L500.2500, L501.4021 ####[facility] [address] [place], [address] GFR/1.73 sq M.predicted among non-blacks MDRD (S/P/Bld) [Vol rate/Area] 130 mL/min/{1.73_m2} Normal >60 [facility] Comment on above: Result Comment: mL/m in/1.73m2 CKD-EPI Creatinine Equation (2020) Performed By: #### L 100.0100, L500.2500, L501.4021 ####[facility] [address] [place], [address] Glucose [Mass/Vol] 118 mg/dL High 70-99 [facility] Comment on above: Performed By: #### L 100.0100, L500.2500, L501.4021 ####[facility] [address] [place], [address] Potassium [Moles/Vol] 3.5 mmol/L Normal 3.3-5.1 [facility] Comment on above: Performed By: #### L 100.0100, L500.2500, L501.4021 ####[facility] [address] [place], [address] Sodium [Moles/Vol] 139 mmol/L Normal 133-145 [facility] Comment on above: Performed By: #### L 100.0100, L500.2500, L501.4021 ####[facility] [address] [place], [address] Urea nitrogen [Mass/Vol] 9 mg/dL Normal 4-19 [facility] Comment on above: Performed By: #### L 100.0100, L500.2500, L501.4021 ####[facility] [address] [place], [address] Basophil percentageOrdered B y: Jaylon Galicia on 06-03-2024 Basophils/100 WBC (Bld) 0.5 % 0-1 [facility] CBC W/Diff, Automatedon 05-20 Absolute Lymph 1.66 X10 3/uL Normal 0.83-4.51 [facility] Comment on above: Performed By: #### L 100.0100, L500.2500, L501.4021 ####[facility] [address] [place], [address] Absolute Neut 4.2 X10 3/uL Normal 2.0-7.7 [facility] Comment on above: Performed By: #### L 100.0100, L500.2500, L501.4021 ####[facility] [address] [place], [address] Basophils/100 WBC (Bld) 0.5 % Normal 0-1 [facility] Comment on above: Performed By: #### L 100.0100, L500.2500, L501.4021 ####[facility] [address] [place], [address] Eosinophils/100 WBC (Bld) 0.5 % Normal 0-5 [facility] Comment on above: Performed By: #### L 100.0100, L500.2500, L501.4021 ####[facility] [address] [place], [address] Erythrocyte distribution width (RBC) [Ratio] 14.3 % Normal 11.6-14.6 [facility] Comment on above: Performed By: #### L 100.0100, L500.2500, L501.4021 ####[facility] [address] [place], [address] Hematocrit (Bld) [Volume fraction] 36.7 % Low 37-47 [facility] Comment on above: Performed By: #### L 100.0100, L500.2500, L501.4021 ####[facility] [address] [place], [address] Hemoglobin (Bld) [Mass/Vol] 12.1 g/dL Normal 12.0-15.0 [facility] Comment on above: Performed By: #### L 100.0100, L500.2500, L501.4021 ####[facility] [address] [place], [address] IG% 0.300 Normal 0.0-0.9 [facility] Comment on above: Result Comment: IG% - Immature Granulocytes (promyelocytes, myelocytes andmetamyelocytes) > 1% indicates that a LEFT SHIFT is Present. Performed By: #### L 100.0100, L500.2500, L501.4021 ####[facility] [address] [place], [address] Lymphocytes/100 WBC (Bld) 25.5 % Normal 19-41 [facility] Comment on above: Performed By: #### L 100.0100, L500.2500, L501.4021 ####[facility] [address] [place], [address] MCH (RBC) [Entitic mass] 26.7 pg Low 27.0-32.0 [facility] Comment on above: Performed By: #### L 100.0100, L500.2500, L501.4021 ####[facility] [address] [place], [address] MCHC (RBC) [Mass/Vol] 33.0 g/dL Normal 32-36 [facility] Comment on above: Performed By: #### L 100.0100, L500.2500, L501.4021 ####[facility] [address] [place], [address] MCV (RBC) [Entitic vol] 81.0 fL Normal 81-99 [facility] Comment on above: Performed By: #### L 100.0100, L500.2500, L501.4021 ####[facility] [address] [place], [address] Monocytes/100 WBC (Bld) 8.9 % Normal 0-10 [facility] Comment on above: Performed By: #### L 100.0100, L500.2500, L501.4021 ####[facility] [address] [place], [address] Neutrophils/100 WBC (Bld) 64.3 % Normal 47-70 [facility] Comment on above: Performed By: #### L 100.0100, L500.2500, L501.4021 ####[facility] [address] [place], [address] Nucleated RBC (Bld) [#/Vol] 0 10*3/uL Normal 0-5 [facility] Comment on above: Performed By: #### L 100.0100, L500.2500, L501.4021 ####[facility] [address] [place], [address] Platelet mean volume (Bld) [Entitic vol] 9.8 fL Normal 6.2-12.0 [facility] Comment on above: Performed By: #### L 100.0100, L500.2500, L501.4021 ####[facility] [address] [place], [address] Platelets (Bld) [#/Vol] 347 10*3/uL Normal 150-450 [facility] Comment on above: Performed By: #### L 100.0100, L500.2500, L501.4021 ####[facility] [address] [place], [address] RBC (Bld) [#/Vol] 4.53 10*6/uL Normal 4.2-5.4 [facility] Comment on above: Performed By: #### L 100.0100, L500.2500, L501.4021 ####[facility] [address] [place], [address] RDW SD 42.2 fl Normal 35.1-43.9 [facility] Comment on above: Performed By: #### L 100.0100, L500.2500, L501.4021 ####[facility] [address] [place], [address] WBC (Bld) [#/Vol] 6.5 10*3/uL Normal 4.4-11.0 [facility] Comment on above: Performed By: #### L 100.0100, L500.2500, L501.4021 ####[facility] [address] [place], [address] CTA Chest W/WO Contraston CTA Chest W/WO Contrast Normal [facility] CTA Head AND Neck W/ Contras ton 06-03-2024 CTA Head AND Neck W/ Contrast Normal [facility] Carbon dioxide, total [Moles /volume] in Central venous bloodOrdered By: Jaylon Galicia on 06-03-2024 CO2 [Moles/Vol] 22.0 mmol/L 21.0-32.0 [facility] Chloride assayOrdered By: Blanca Galicia on 06-03-2024 Chloride [Moles/Vol] 105 mmol/L 98-108 [facility] Emergency Department Summary on 06-03-2024 Emergency Department Summary Normal [facility] Eosinophil percentageOrdered By: Jaylon Galicia on 06-03-2024 Eosinophils/100 WBC (Bld) 0.5 % 0-5 [facility] Erythrocyte distribution wid th (RBC) [Ratio]Ordered By: Jaylon Galicia on 06-03-2024 Erythrocyte distribution width (RBC) [Entitic vol] 42.2 fL 35.1-43.9 [facility] Erythrocyte distribution wid th ratioOrdered By: Jaylon Galicia on 06-03-2024 Erythrocyte distribution width (RBC) [Ratio] 14.3 % 11.6-14.6 [facility] Erythrocyte distribution wid th standard deviationOrdered By: Jaylon Galicia on 06-03-2024 Erythrocyte distribution width (RBC) [Ratio] 42.2 fl 35.1-43.9 [facility] Estimation of creatinine thad aranceOrdered By: Jaylon Galicia on 06-03-2024 Estimated Creatinine Clearance Calc 225.17 ml/min 50-250 [facility] GFR/1.73 sq M.predicted janet g non-blacks MDRD (S/P/Bld) [Vol rate/Area]Ordered By: Jaylon Galicia on 06-03-2024 Estimated GFR (MDRD) Non-Af Amer 130 >60 [facility] Comment on above: mL/min/1.73m2 CKD-EP I Creatinine Equation (2020) Glomerular filtration rate ( GFR) estimation/1.73 sq m using serum, plasma, or whole bOrdered By: Jaylon Galicia on 06-03-2024 GFR/1.73 sq M.predicted among non-blacks MDRD (S/P/Bld) [Vol rate/Area] 130 mL/min/{1.73_m2} >60 [facility] Comment on above: mL/min/1.73m2 CKD-EP I Creatinine Equation (2020) Hematocrit Auto (Bld) [Volum e fraction]Ordered By: Jaylon Galicia on 06-03-2024 Hematocrit (Bld) [Volume fraction] 36.7 % Low 37-47 [facility] Hemoglobin measurementOrdere d By: Jaylon Galicia on 06-03-2024 Hemoglobin (Bld) [Mass/Vol] 12.1 g/dL 12.0-15.0 [facility] Immature granulocytes/100 WB C Auto (Bld)Ordered By: Jaylon Galicia on 06-03-2024 Immature granulocytes/100 WBC (Bld) 0.300 % 0.0-0.9 [facility] Comment on above: IG% - Immature Granu locytes (promyelocytes, myelocytes and metamyelocytes) > 1% indicates that a LEFT SHIFT is Present. L499.0042on 06-03-2024 Trop T High Sen < 6 Normal <=14 [facility] Comment on above: Performed By: #### L 499.0042 ####[facility] [address] [place], [address] L499.0043on 06-03-2024 Trop T High Sen Normal <=14 [facility] Comment on above: Result Comment: NATHAN ENT DISCHARGED Performed By: #### L 499.0043 ####[facility] [address] [place], [address] L501.4021on 06-03-2024 Trop T High Sen < 6 Normal <=14 [facility] Comment on above: Performed By: #### L 100.0100, L500.2500, L501.4021 ####[facility] [address] [place], [address] Lymphocytes Auto (Unsp spec) [#/Vol]Ordered By: Jaylonnorma Galicia on 06-03-2024 Lymphocytes (Bld) [#/Vol] 1.66 10*3/uL 0.83-4.51 [facility] Lymphocytes/100 WBC Auto (Un sp spec)Ordered By: Jaylon Galicia on 06-03-2024 Lymphocytes/100 WBC (Bld) 25.5 % 19-41 [facility] MCV (mean corpuscular volume ) determinationOrdered By: Jaylon Galicia on 06-03-2024 MCV (RBC) [Entitic vol] 81.0 fL 81-99 [facility] Mean corpuscular hemoglobin (MCH) determinationOrdered By: Jaylon Galicia on 06-03-2024 MCH (RBC) [Entitic mass] 26.7 pg Low 27.0-32.0 [facility] Mean corpuscular hemoglobin concentration (MCHC) determinationOrdered By: Jaylon Galicia on 06-03-2024 MCHC (RBC) [Mass/Vol] 33.0 g/dL 32-36 [facility] Mean platelet volume determi nationOrdered By: Jaylon Galicia on 06-03-2024 Platelet mean volume (Bld) [Entitic vol] 9.8 fL 6.2-12.0 [facility] Monocyte percentageOrdered B y: Jaylon Galicia on 06-03-2024 Monocytes/100 WBC (Bld) 8.9 % 0-10 [facility] Neutrophil percentageOrdered By: Jaylon Galicia on 06-03-2024 Neutrophils/100 WBC (Bld) 64.3 % 47-70 [facility] Nucleated red blood cell per centageOrdered By: Jaylon Galicia on 06-03-2024 Nucleated RBC/100 WBC (Bld) [Ratio] 0 % 0-5 [facility] Platelet countOrdered By: Blanca Galicia on 06-03-2024 Platelets (Bld) [#/Vol] 347 10*3/uL 150-450 [facility] Potassium (Unsp spec) [Mass/ Vol]Ordered By: Jaylon Galicia on 06-03-2024 Potassium [Moles/Vol] 3.5 mmol/L 3.3-5.1 [facility] Potassium measurement (mass/ volume)Ordered By: Jaylon Galicia on 06-03-2024 Potassium (Unsp spec) [Mass/Vol] 3.5 mmol/L 3.3-5.1 [facility] RBC Auto (Bld) [#/Vol]Ordere d By: Jaylon Galicia on 06-03-2024 RBC (Bld) [#/Vol] 4.53 10*6/uL 4.2-5.4 [facility] Serum creatinine measurement (mass/volume)Ordered By: Jaylon Galicia on 06-03-2024 Creatinine [Mass/Vol] 0.53 mg/dL Low 0.70-1.20 [facility] Serum glucose measurement (m ass/volume)Ordered By: Jaylon Galicia on 06-03-2024 Glucose [Mass/Vol] 118 mg/dL High 70-99 [facility] Serum or plasma calcium cherelle urement (mass/volume)Ordered By: Jaylon Galicia on 06-03-2024 Calcium [Mass/Vol] 8.9 mg/dL 7.6-11.0 [facility] Serum or plasma urea nitroge n measurement (mass/volume)Ordered By: Jaylon Galicia on 06-03-2024 Urea nitrogen [Mass/Vol] 9 mg/dL 4-19 [facility] Sodium levelOrdered By: Tomy Galicia on 06-03-2024 Sodium [Moles/Vol] 139 mmol/L 133-145 [facility] Troponin T.cardiac High sens itivity method [Mass/Vol]Ordered By: Jaylon Galicia on 06-03-2024 Troponin T High Sensitivity 2 Hour < 6 ng/L <14 [facility] Troponin T High Sensitivity < 6 ng/L <14 [facility] Troponin T.cardiac [Mass/vol ume] in Serum or Plasma by High sensitivity methodOrdered By: Jaylon Galicia on 06-03-2024 Troponin T.cardiac High sensitivity method [Mass/Vol] < 6 ng/L <14 [facility] Troponin T.cardiac High sensitivity method [Mass/Vol] < 6 ng/L <14 [facility] White blood cell (WBC) count Ordered By: Jaylon Galicia on 06-03-2024 WBC (Bld) [#/Vol] 6.5 10*3/uL 4.4-11.0 [facility] Cardiology Visit Reporton Cardiology Visit Report Normal [facility] Anion gap in Serum or Plasma Ordered By: Karina Guerra on 05-23-2024 Anion gap [Moles/Vol] 11 mmol/L 5- [facility] BUN/creatinine ratioOrdered By: Karina Guerra on 05-23-2024 Urea nitrogen/Creatinine [Mass ratio] 16.1 mg/mg 10- [facility] Bilirubin, totalOrdered By: Karina Guerra on 05-23-2024 Bilirubin [Mass/Vol] 0.22 mg/dL 0.00-1.30 [facility] Carbon dioxide, total [Moles /volume] in Central venous bloodOrdered By: Karina Guerra on 05-23-2024 CO2 [Moles/Vol] 21.4 mmol/L 21.0-32.0 [facility] Chloride assayOrdered By: Blair Guerra on 05-23-2024 Chloride [Moles/Vol] 106 mmol/L 98-108 [facility] Comprehensive Metabolic Prof ilon 05-23-2024 Albumin [Mass/Vol] 3.8 g/dL Normal 3.5-5.0 [facility] Comment on above: Performed By: #### L 500.4050, L501.9596, L501.9060 ####[facility] [address] [place], [place], [id number] Albumin/Globulin [Mass ratio] 1.1 {ratio} Normal 0.9-2.4 [facility] Comment on above: Performed By: #### L 500.4050, L501.9520, L501.9060 ####[facility] [address] [place], [address] ALK PHOS 58 U/L Normal 35-104 [facility] Comment on above: Performed By: #### L 500.4050, L501.9520, L501.9060 ####[facility] [address] [place], [address] ALT [Catalytic activity/Vol] 32 U/L Normal <=34 [facility] Comment on above: Performed By: #### L 500.4050, L501.9520, L501.9060 ####[facility] [address] [place], [address] AST [Catalytic activity/Vol] 23 U/L Normal <=31 [facility] Comment on above: Performed By: #### L 500.4050, L501.9520, L501.9060 ####[facility] [address] [place], [address] Bilirubin [Mass/Vol] 0.22 mg/dL Normal 0.00-1.30 [facility] Comment on above: Performed By: #### L 500.4050, L501.9520, L501.9060 ####[facility] [address] [place], [address] BUN/CRE 16.1 RATIO Normal 10-20 [facility] Comment on above: Performed By: #### L 500.4050, L501.9520, L501.9060 ####[facility] [address] [place], [address] Calcium [Mass/Vol] 9.4 mg/dL Normal 7.6-11.0 [facility] Comment on above: Performed By: #### L 500.4050, L501.9520, L501.9060 ####[facility] [address] [place], [address] Chloride [Moles/Vol] 106 mmol/L Normal 98-108 [facility] Comment on above: Performed By: #### L 500.4050, L501.9520, L501.9060 ####[facility] [address] [place], [address] CO2 [Moles/Vol] 21.4 mmol/L Normal 21.0-32.0 [facility] Comment on above: Performed By: #### L 500.4050, L501.9520, L501.9060 ####[facility] [address] [place], [address] Creatinine [Mass/Vol] 0.53 mg/dL Low 0.70-1.20 [facility] Comment on above: Performed By: #### L 500.4050, L501.9520, L501.9060 ####[facility] [address] [place], [address] GAP 11 Normal 5-15 [facility] Comment on above: Performed By: #### L 500.4050, L501.9520, L501.9060 ####[facility] [address] [place], [address] GFR/1.73 sq M.predicted among non-blacks MDRD (S/P/Bld) [Vol rate/Area] 130 mL/min/{1.73_m2} Normal >60 [facility] Comment on above: Result Comment: mL/m in/1.73m2 CKD-EPI Creatinine Equation (2020) Performed By: #### L 500.4050, L501.9520, L501.9060 ####[facility] [address] [place], [address] Globulin (S) [Mass/Vol] 3.4 g/dL Normal 2.2-4.2 [facility] Comment on above: Performed By: #### L 500.4050, L501.9520, L501.9060 ####[facility] [address] [place], [address] Glucose [Mass/Vol] 114 mg/dL High 70-99 [facility] Comment on above: Performed By: #### L 500.4050, L501.9520, L501.9060 ####[facility] [address] [place], [address] Potassium [Moles/Vol] 4.2 mmol/L Normal 3.3-5.1 [facility] Comment on above: Performed By: #### L 500.4050, L501.9520, L501.9060 ####[facility] [address] [place], [address] Sodium [Moles/Vol] 138 mmol/L Normal 133-145 [facility] Comment on above: Performed By: #### L 500.4050, L501.9520, L501.9060 ####[facility] [address] [place], [address] T PROT 7.1 g/dL Normal 5.9-8.4 [facility] Comment on above: Performed By: #### L 500.4050, L501.9520, L501.9060 ####[facility] [address] [place], [address] Urea nitrogen [Mass/Vol] 9 mg/dL Normal 4-19 [facility] Comment on above: Performed By: #### L 500.4050, L501.9520, L501.9060 ####[facility] [address] [place], [address] GFR/1.73 sq M.predicted janet g non-blacks MDRD (S/P/Bld) [Vol rate/Area]Ordered By: Karina Guerra on 05-23-2024 Estimated GFR (MDRD) Non-Af Amer 130 >60 [facility] Comment on above: mL/min/1.73m2 CKD-EP I Creatinine Equation (2020) Glomerular filtration rate ( GFR) estimation/1.73 sq m using serum, plasma, or whole bOrdered By: Karina Guerra on 05-23-2024 GFR/1.73 sq M.predicted among non-blacks MDRD (S/P/Bld) [Vol rate/Area] 130 mL/min/{1.73_m2} >60 [facility] Comment on above: mL/min/1.73m2 CKD-EP I Creatinine Equation (2020) Laboratory - Chemistry and C hemistry - challengeOrdered By: Karina Guerra on 05-23-2024 AST [Catalytic activity/Vol] 23 U/L <32 [facility] Lithiumon 05-23-2024 LI 0.64 mmol/L Normal 0.60-1.20 [facility] Comment on above: Order Comment: Performed By: #### L 500.4050, L501.9520, L501.9060 ####[facility] [address] [place], [address] [place] levelOrdered By: Debora Guerra on 05-23-2024 [place] Level 0.64 mmol/L 0.60-1.20 [facility] No Panel InformationOrdered By: Karina Guerra on 05-23-2024 23 U/L <32 [facility] Potassium (Unsp spec) [Mass/ Vol]Ordered By: Karina Guerra on 05-23-2024 Potassium [Moles/Vol] 4.2 mmol/L 3.3-5.1 [facility] Potassium measurement (mass/ volume)Ordered By: Karina Guerra on 05-23-2024 Potassium (Unsp spec) [Mass/Vol] 4.2 mmol/L 3.3-5.1 [facility] Serum creatinine measurement (mass/volume)Ordered By: Karina Guerra on 05-23-2024 Creatinine [Mass/Vol] 0.53 mg/dL Low 0.70-1.20 [facility] Serum globulin measurementOr dered By: Karina Guerra on 05-23-2024 Globulin (S) [Mass/Vol] 3.4 g/dL 2.2-4.2 [facility] Serum glucose measurement (m ass/volume)Ordered By: Karina Guerra on 05-23-2024 Glucose [Mass/Vol] 114 mg/dL High 70-99 [facility] Serum or plasma alanine godinez otransferase (ALT) measurementOrdered By: Karina Guerra on 05-23-2024 ALT [Catalytic activity/Vol] 32 U/L <35 [facility] Serum or plasma albumin cherelle urement (mass/volume)Ordered By: Karina Guerra on 05-23-2024 Albumin [Mass/Vol] 3.8 g/dL 3.5-5.0 [facility] Serum or plasma albumin/glob ulin mass ratioOrdered By: Karina Guerra on 05-23-2024 Albumin/Globulin [Mass ratio] 1.1 {ratio} 0.9-2.4 [facility] Serum or plasma alkaline rohit sphatase measurementOrdered By: Karina Guerra on 05-23-2024 ALP [Catalytic activity/Vol] 58 U/L 35-104 [facility] Serum or plasma calcium cherelle urement (mass/volume)Ordered By: Karina Guerra on 05-23-2024 Calcium [Mass/Vol] 9.4 mg/dL 7.6-11.0 [facility] Serum or plasma urea nitroge n measurement (mass/volume)Ordered By: Karina Guerra on 05-23-2024 Urea nitrogen [Mass/Vol] 9 mg/dL 4-19 [facility] Sodium levelOrdered By: Mary Guerra on 05-23-2024 Sodium [Moles/Vol] 138 mmol/L 133-145 [facility] TSH DL <= 0.005 mIU/L QnOrde red By: Karina Guerra on 05-23-2024 Thyroid Stimulating Hormone (TSH) 2.310 uIU/mL 0.300-4.200 [facility] TSH Qn 2.310 uIU/mL 0.300-4.200 [facility] Thyroid Stim Hormone (TSH)on 05-23-2024 TSH 2.310 uIU/mL Normal 0.300-4.200 [facility] Comment on above: Performed By: #### L 500.4050, L501.9520, L501.9060 ####[facility] [address] [place], [address] Total proteinOrdered By: Debora Guerra on 05-23-2024 Protein [Mass/Vol] 7.1 g/dL 5.9-8.4 [facility] Emergency Department Summary on 05-15-2024 Emergency Department Summary Normal [facility] L499.0043on 05-15-2024 Trop T High Sen Normal <=14 [facility] Comment on above: Result Comment: Canc elled via OM: Order cancelled - Patient discharged Performed By: #### L 499.0043 ####[facility] [address] [place], [place], [address] 12 Lead EKGon 05-14-2024 12 Lead EKG Normal [facility] Absolute lymphocyte countOrd ered By: ED PROVIDER on 05-14-2024 Lymphocytes Auto (Unsp spec) [#/Vol] 2.55 10*3/uL 0.83-4.51 [facility] Absolute neutrophil countOrd ered By: ED PROVIDER on 05-14-2024 Neutrophils (Bld) [#/Vol] 4.8 10*3/uL 2.0-7.7 [facility] Anion gap in Serum or Plasma Ordered By: Stan Lin on 05-14-2024 Anion gap [Moles/Vol] 11 mmol/L 5-15 [facility] Automated lymphocyte count a s percentage of total leukocytesOrdered By: ED PROVIDER on 05-14-2024 Lymphocytes/100 WBC Auto (Unsp spec) 31.2 % - [facility] BUN/creatinine ratioOrdered By: Stan Lin on 05-14-2024 Urea nitrogen/Creatinine [Mass ratio] 20.0 mg/mg - [facility] Basic Metabolic Profile (BMP )on 05-14-2024 BUN/CRE 20.0 RATIO Normal 10-20 [facility] Comment on above: Performed By: #### L 501.4021, L100.0100, L500.2500 ####[facility] [address] [place], [address] Calcium [Mass/Vol] 9.5 mg/dL Normal 7.6-11.0 [facility] Comment on above: Performed By: #### L 501.4021, L100.0100, L500.2500 ####[facility] [address] [place], [address] Chloride [Moles/Vol] 105 mmol/L Normal 98-108 [facility] Comment on above: Performed By: #### L 501.4021, L100.0100, L500.2500 ####[facility] [address] [place], [address] CO2 [Moles/Vol] 20.5 mmol/L Low 21.0-32.0 [facility] Comment on above: Performed By: #### L 501.4021, L100.0100, L500.2500 ####[facility] [address] [place], [address] Creatinine [Mass/Vol] 0.73 mg/dL Normal 0.70-1.20 [facility] Comment on above: Performed By: #### L 501.4021, L100.0100, L500.2500 ####[facility] [address] [place], [address] ECRCL 161.90 ml/min Normal 50-250 [facility] Comment on above: Performed By: #### L 501.4021, L100.0100, L500.2500 ####[facility] [address] [place], [address] GAP 11 Normal 5-15 [facility] Comment on above: Performed By: #### L 501.4021, L100.0100, L500.2500 ####[facility] [address] [place], [address] GFR/1.73 sq M.predicted among non-blacks MDRD (S/P/Bld) [Vol rate/Area] 116 mL/min/{1.73_m2} Normal >60 [facility] Comment on above: Result Comment: mL/m in/1.73m2 CKD-EPI Creatinine Equation (2020) Performed By: #### L 501.4021, L100.0100, L500.2500 ####[facility] [address] [place], [address] Glucose [Mass/Vol] 124 mg/dL High 70-99 [facility] Comment on above: Performed By: #### L 501.4021, L100.0100, L500.2500 ####[facility] [address] [place], [address] Potassium [Moles/Vol] 4.1 mmol/L Normal 3.3-5.1 [facility] Comment on above: Performed By: #### L 501.4021, L100.0100, L500.2500 ####[facility] [address] [place], [address] Sodium [Moles/Vol] 136 mmol/L Normal 133-145 [facility] Comment on above: Performed By: #### L 501.4021, L100.0100, L500.2500 ####[facility] [address] [place], [address] Urea nitrogen [Mass/Vol] 15 mg/dL Normal 4-19 [facility] Comment on above: Performed By: #### L 501.4021, L100.0100, L500.2500 ####[facility] [address] [place], [address] Basophil percentageOrdered B y: ED PROVIDER on 05-14-2024 Basophils/100 WBC (Bld) 0.4 % 0-1 [facility] CBC W/Diff, Automatedon 03-2 Absolute Lymph 2.55 X10 3/uL Normal 0.83-4.51 [facility] Comment on above: Performed By: #### L 501.4021, L100.0100, L500.2500 ####[facility] [address] [place], [address] Absolute Neut 4.8 X10 3/uL Normal 2.0-7.7 [facility] Comment on above: Performed By: #### L 501.4021, L100.0100, L500.2500 ####[facility] [address] [place], [address] Basophils/100 WBC (Bld) 0.4 % Normal 0-1 [facility] Comment on above: Performed By: #### L 501.4021, L100.0100, L500.2500 ####[facility] [address] [place], [address] Eosinophils/100 WBC (Bld) 0.4 % Normal 0-5 [facility] Comment on above: Performed By: #### L 501.4021, L100.0100, L500.2500 ####[facility] [address] [place], [address] Erythrocyte distribution width (RBC) [Ratio] 14.5 % Normal 11.6-14.6 [facility] Comment on above: Performed By: #### L 501.4021, L100.0100, L500.2500 ####[facility] [address] [place], [address] Hematocrit (Bld) [Volume fraction] 39.4 % Normal 37-47 [facility] Comment on above: Performed By: #### L 501.4021, L100.0100, L500.2500 ####[facility] [address] [place], [address] Hemoglobin (Bld) [Mass/Vol] 12.7 g/dL Normal 12.0-15.0 [facility] Comment on above: Performed By: #### L 501.4021, L100.0100, L500.2500 ####[facility] [address] [place], [address] IG% 0.100 Normal 0.0-0.9 [facility] Comment on above: Result Comment: IG% - Immature Granulocytes (promyelocytes, myelocytes andmetamyelocytes) > 1% indicates that a LEFT SHIFT is Present. Performed By: #### L 501.4021, L100.0100, L500.2500 ####[facility] [address] [place], [address] Lymphocytes/100 WBC (Bld) 31.2 % Normal 19-41 [facility] Comment on above: Performed By: #### L 501.4021, L100.0100, L500.2500 ####[facility] [address] [place], [address] MCH (RBC) [Entitic mass] 26.9 pg Low 27.0-32.0 [facility] Comment on above: Performed By: #### L 501.4021, L100.0100, L500.2500 ####[facility] [address] [place], [address] MCHC (RBC) [Mass/Vol] 32.2 g/dL Normal 32-36 [facility] Comment on above: Performed By: #### L 501.4021, L100.0100, L500.2500 ####[facility] [address] [place], [address] MCV (RBC) [Entitic vol] 83.5 fL Normal 81-99 [facility] Comment on above: Performed By: #### L 501.4021, L100.0100, L500.2500 ####[facility] [address] [place], [address] Monocytes/100 WBC (Bld) 9.0 % Normal 0-10 [facility] Comment on above: Performed By: #### L 501.4021, L100.0100, L500.2500 ####[facility] [address] [place], [address] Neutrophils/100 WBC (Bld) 58.9 % Normal 47-70 [facility] Comment on above: Performed By: #### L 501.4021, L100.0100, L500.2500 ####[facility] [address] [place], [address] Nucleated RBC (Bld) [#/Vol] 0 10*3/uL Normal 0-5 [facility] Comment on above: Performed By: #### L 501.4021, L100.0100, L500.2500 ####[facility] [address] [place], [address] Platelet mean volume (Bld) [Entitic vol] 9.0 fL Normal 6.2-12.0 [facility] Comment on above: Performed By: #### L 501.4021, L100.0100, L500.2500 ####[facility] [address] [place], [address] Platelets (Bld) [#/Vol] 374 10*3/uL Normal 150-450 [facility] Comment on above: Performed By: #### L 501.4021, L100.0100, L500.2500 ####[facility] [address] [place], [address] RBC (Bld) [#/Vol] 4.72 10*6/uL Normal 4.2-5.4 [facility] Comment on above: Performed By: #### L 501.4021, L100.0100, L500.2500 ####[facility] [address] [place], [address] RDW SD 43.8 fl Normal 35.1-43.9 [facility] Comment on above: Performed By: #### L 501.4021, L100.0100, L500.2500 ####[facility] [address] [place], [address] WBC (Bld) [#/Vol] 8.2 10*3/uL Normal 4.4-11.0 [facility] Comment on above: Performed By: #### L 501.4021, L100.0100, L500.2500 ####[facility] [address] [place], [address] Carbon dioxide, total [Moles /volume] in Central venous bloodOrdered By: Stan Lin on 05-14-2024 CO2 [Moles/Vol] 20.5 mmol/L Low 21.0-32.0 [facility] Chest 1 View (Portable)on Chest 1 View (Portable) Normal [facility] Chloride assayOrdered By: Doroteo Lin on 05-14-2024 Chloride [Moles/Vol] 105 mmol/L 98-108 [facility] Eosinophil percentageOrdered By: ED PROVIDER on 05-14-2024 Eosinophils/100 WBC (Bld) 0.4 % 0-5 [facility] Erythrocyte distribution wid th ratioOrdered By: ED PROVIDER on 05-14-2024 Erythrocyte distribution width (RBC) [Ratio] 14.5 % 11.6-14.6 [facility] Erythrocyte distribution wid th standard deviationOrdered By: ED PROVIDER on 05-14-2024 Erythrocyte distribution width (RBC) [Entitic vol] 43.8 fL 35.1-43.9 [facility] Erythrocyte distribution width (RBC) [Ratio] 43.8 fl 35.1-43.9 [facility] Estimation of creatinine thad aranceOrdered By: Stan Lin on 05-14-2024 Estimated Creatinine Clearance Calc 161.90 ml/min 50-250 [facility] GFR/1.73 sq M.predicted janet g non-blacks MDRD (S/P/Bld) [Vol rate/Area]Ordered By: Stan Lin on 05-14-2024 Estimated GFR (MDRD) Non-Af Amer 116 >60 [facility] Comment on above: mL/min/1.73m2 CKD-EP I Creatinine Equation (2020) Glomerular filtration rate ( GFR) estimation/1.73 sq m using serum, plasma, or whole bOrdered By: Stan Lin on 05-14-2024 GFR/1.73 sq M.predicted among non-blacks MDRD (S/P/Bld) [Vol rate/Area] 116 mL/min/{1.73_m2} >60 [facility] Comment on above: mL/min/1.73m2 CKD-EP I Creatinine Equation (2020) Hematocrit Auto (Bld) [Volum e fraction]Ordered By: ED PROVIDER on 05-14-2024 Hematocrit (Bld) [Volume fraction] 39.4 % 37-47 [facility] Hemoglobin measurementOrdere d By: ED PROVIDER on 05-14-2024 Hemoglobin (Bld) [Mass/Vol] 12.7 g/dL 12.0-15.0 [facility] Immature granulocytes/100 WB C Auto (Bld)Ordered By: ED PROVIDER on 05-14-2024 Immature granulocytes/100 WBC (Bld) 0.100 % 0.0-0.9 [facility] Comment on above: IG% - Immature Granu locytes (promyelocytes, myelocytes and metamyelocytes) > 1% indicates that a LEFT SHIFT is Present. L499.0042on 05-14-2024 Trop T High Sen < 6 Normal <=14 [facility] Comment on above: Performed By: #### L 499.0042 ####[facility] [address] [place], [address] L501.4021on 05-14-2024 Trop T High Sen < 6 Normal <=14 [facility] Comment on above: Performed By: #### L 501.4021, L100.0100, L500.2500 ####[facility] [address] [place], [address] Lymphocytes Auto (Unsp spec) [#/Vol]Ordered By: ED PROVIDER on 05-14-2024 Lymphocytes (Bld) [#/Vol] 2.55 10*3/uL 0.83-4.51 [facility] Lymphocytes/100 WBC Auto (Un sp spec)Ordered By: ED PROVIDER on 05-14-2024 Lymphocytes/100 WBC (Bld) 31.2 % 19-41 [facility] MCV (mean corpuscular volume ) determinationOrdered By: ED PROVIDER on 05-14-2024 MCV (RBC) [Entitic vol] 83.5 fL 81-99 [facility] Mean corpuscular hemoglobin (MCH) determinationOrdered By: ED PROVIDER on 05-14-2024 MCH (RBC) [Entitic mass] 26.9 pg Low 27.0-32.0 [facility] Mean corpuscular hemoglobin concentration (MCHC) determinationOrdered By: ED PROVIDER on 05-14-2024 MCHC (RBC) [Mass/Vol] 32.2 g/dL 32-36 [facility] Mean platelet volume determi nationOrdered By: ED PROVIDER on 05-14-2024 Platelet mean volume (Bld) [Entitic vol] 9.0 fL 6.2-12.0 [facility] Monocyte percentageOrdered B y: ED PROVIDER on 05-14-2024 Monocytes/100 WBC (Bld) 9.0 % 0-10 [facility] Neutrophil percentageOrdered By: ED PROVIDER on 05-14-2024 Neutrophils/100 WBC (Bld) 58.9 % 47-70 [facility] No Panel InformationOrdered By: ED PROVIDER on 05-14-2024 Troponin T High Sensitivity < 6 ng/L <14 [facility] < 6 ng/L <14 [facility] Nucleated red blood cell per centageOrdered By: ED PROVIDER on 05-14-2024 Nucleated RBC/100 WBC (Bld) [Ratio] 0 % 0-5 [facility] Platelet countOrdered By: ED PROVIDER on 05-14-2024 Platelets (Bld) [#/Vol] 374 10*3/uL 150-450 [facility] Potassium (Unsp spec) [Mass/ Vol]Ordered By: Stan Lin on 05-14-2024 Potassium [Moles/Vol] 4.1 mmol/L 3.3-5.1 [facility] Potassium measurement (mass/ volume)Ordered By: Stan Lin on 05-14-2024 Potassium (Unsp spec) [Mass/Vol] 4.1 mmol/L 3.3-5.1 [facility] RBC Auto (Bld) [#/Vol]Ordere d By: ED PROVIDER on 05-14-2024 RBC (Bld) [#/Vol] 4.72 10*6/uL 4.2-5.4 [facility] Serum creatinine measurement (mass/volume)Ordered By: Stan Lin on 05-14-2024 Creatinine [Mass/Vol] 0.73 mg/dL 0.70-1.20 [facility] Serum glucose measurement (m ass/volume)Ordered By: Stan Lin on 05-14-2024 Glucose [Mass/Vol] 124 mg/dL High 70-99 [facility] Serum or plasma calcium cherelle urement (mass/volume)Ordered By: Stan Lin on 05-14-2024 Calcium [Mass/Vol] 9.5 mg/dL 7.6-11.0 [facility] Serum or plasma urea nitroge n measurement (mass/volume)Ordered By: Stan Lin on 05-14-2024 Urea nitrogen [Mass/Vol] 15 mg/dL 4-19 [facility] Sodium levelOrdered By: Jeanne Lin on 05-14-2024 Sodium [Moles/Vol] 136 mmol/L 133-145 [facility] Troponin T.cardiac High sens itivity method [Mass/Vol]Ordered By: Stan Lin on 05-14-2024 Troponin T High Sensitivity 2 Hour < 6 ng/L <14 [facility] Troponin T.cardiac [Mass/vol ume] in Serum or Plasma by High sensitivity methodOrdered By: Stan Lin on 05-14-2024 Troponin T.cardiac High sensitivity method [Mass/Vol] < 6 ng/L <14 [facility] White blood cell (WBC) count Ordered By: ED PROVIDER on 05-14-2024 WBC (Bld) [#/Vol] 8.2 10*3/uL 4.4-11.0 [facility] Abdomen/Pelvis W IV Cont ONL Yon 05-08-2024 Abdomen/Pelvis W IV Cont ONLY Normal [facility] Absolute lymphocyte countOrd ered By: Stan Lin on 05-08-2024 Lymphocytes Auto (Unsp spec) [#/Vol] 2.37 10*3/uL 0.83-4.51 [facility] Absolute neutrophil countOrd ered By: Stan Lin on 05-08-2024 Neutrophils (Bld) [#/Vol] 4.5 10*3/uL 2.0-7.7 [facility] Anion gap in Serum or Plasma Ordered By: Stan Lin on 05-08-2024 Anion gap [Moles/Vol] 8 mmol/L 5- [facility] Automated lymphocyte count a s percentage of total leukocytesOrdered By: Stan Lin on 05-08-2024 Lymphocytes/100 WBC Auto (Unsp spec) 30.5 % [facility] BUN/creatinine ratioOrdered By: Stan Lin on 05-08-2024 Urea nitrogen/Creatinine [Mass ratio] 26.4 mg/mg High - [facility] Basophil percentageOrdered B y: Stan Lin on 05-08-2024 Basophils/100 WBC (Bld) 0.3 % 0-1 [facility] Beta HCG ( test) Ql Ordered By: Stan Lin on 05-08-2024 Serum Test, Qualitative Negative [facility] Bilirubin Test strip Ql (U)O rdered By: Stan Lin on 05-08-2024 Bilirubin Ql (U) Negative Negative [facility] Bilirubin, totalOrdered By: Stan Lin on 05-08-2024 Bilirubin [Mass/Vol] 0.21 mg/dL 0.00-1.30 [facility] CBC W/Diff, Automatedon 04-20 Absolute Lymph 2.37 X10 3/uL Normal 0.83-4.51 [facility] Comment on above: Performed By: #### L 500.4050, L100.0100, L501.2450, L700.6800 ####[facility] [address] [place], [place], [id number] Absolute Neut 4.5 X10 3/uL Normal 2.0-7.7 [facility] Comment on above: Performed By: #### L 500.4050, L100.0100, L501.2450, L700.6800 ####[facility] [address] [place], [address] Basophils/100 WBC (Bld) 0.3 % Normal 0-1 [facility] Comment on above: Performed By: #### L 500.4050, L100.0100, L501.2450, L700.6800 ####[facility] [address] [place], [address] Eosinophils/100 WBC (Bld) 0.5 % Normal 0-5 [facility] Comment on above: Performed By: #### L 500.4050, L100.0100, L501.2450, L700.6800 ####[facility] [address] [place], [address] Erythrocyte distribution width (RBC) [Ratio] 14.1 % Normal 11.6-14.6 [facility] Comment on above: Performed By: #### L 500.4050, L100.0100, L501.2450, L700.6800 ####[facility] [address] [place], [address] Hematocrit (Bld) [Volume fraction] 37.3 % Normal 37-47 [facility] Comment on above: Performed By: #### L 500.4050, L100.0100, L501.2450, L700.6800 ####[facility] [address] [place], [address] Hemoglobin (Bld) [Mass/Vol] 12.5 g/dL Normal 12.0-15.0 [facility] Comment on above: Performed By: #### L 500.4050, L100.0100, L501.2450, L700.6800 ####[facility] [address] [place], [address] IG% 0.300 Normal 0.0-0.9 [facility] Comment on above: Result Comment: IG% - Immature Granulocytes (promyelocytes, myelocytes andmetamyelocytes) > 1% indicates that a LEFT SHIFT is Present. Performed By: #### L 500.4050, L100.0100, L501.2450, L700.6800 ####[facility] [address] [place], [address] Lymphocytes/100 WBC (Bld) 30.5 % Normal 19-41 [facility] Comment on above: Performed By: #### L 500.4050, L100.0100, L501.2450, L700.6800 ####[facility] [address] [place], [address] MCH (RBC) [Entitic mass] 27.9 pg Normal 27.0-32.0 [facility] Comment on above: Performed By: #### L 500.4050, L100.0100, L501.2450, L700.6800 ####[facility] [address] [place], [address] MCHC (RBC) [Mass/Vol] 33.5 g/dL Normal 32-36 [facility] Comment on above: Performed By: #### L 500.4050, L100.0100, L501.2450, L700.6800 ####[facility] [address] [place], [address] MCV (RBC) [Entitic vol] 83.3 fL Normal 81-99 [facility] Comment on above: Performed By: #### L 500.4050, L100.0100, L501.2450, L700.6800 ####[facility] [address] [place], [address] Monocytes/100 WBC (Bld) 10.3 % High 0-10 [facility] Comment on above: Performed By: #### L 500.4050, L100.0100, L501.2450, L700.6800 ####[facility] [address] [place], [address] Neutrophils/100 WBC (Bld) 58.1 % Normal 47-70 [facility] Comment on above: Performed By: #### L 500.4050, L100.0100, L501.2450, L700.6800 ####[facility] [address] [place], [address] Nucleated RBC (Bld) [#/Vol] 0 10*3/uL Normal 0-5 [facility] Comment on above: Performed By: #### L 500.4050, L100.0100, L501.2450, L700.6800 ####[facility] [address] [place], [address] Platelet mean volume (Bld) [Entitic vol] 9.0 fL Normal 6.2-12.0 [facility] Comment on above: Performed By: #### L 500.4050, L100.0100, L501.2450, L700.6800 ####[facility] [address] [place], [address] Platelets (Bld) [#/Vol] 356 10*3/uL Normal 150-450 [facility] Comment on above: Performed By: #### L 500.4050, L100.0100, L501.2450, L700.6800 ####[facility] [address] [place], [address] RBC (Bld) [#/Vol] 4.48 10*6/uL Normal 4.2-5.4 [facility] Comment on above: Performed By: #### L 500.4050, L100.0100, L501.2450, L700.6800 ####[facility] [address] [place], [address] RDW SD 43.0 fl Normal 35.1-43.9 [facility] Comment on above: Performed By: #### L 500.4050, L100.0100, L501.2450, L700.6800 ####[facility] [address] [place], [address] WBC (Bld) [#/Vol] 7.8 10*3/uL Normal 4.4-11.0 [facility] Comment on above: Performed By: #### L 500.4050, L100.0100, L501.2450, L700.6800 ####[facility] [address] [place], [address] Carbon dioxide, total [Moles /volume] in Central venous bloodOrdered By: Stan Lin on 05-08-2024 CO2 [Moles/Vol] 23.9 mmol/L 21.0-32.0 [facility] Chloride assayOrdered By: Doroteo Lin on 05-08-2024 Chloride [Moles/Vol] 107 mmol/L 98-108 [facility] Comprehensive Metabolic Prof ilon 05-08-2024 Albumin [Mass/Vol] 3.9 g/dL Normal 3.5-5.0 [facility] Comment on above: Performed By: #### L 500.4050, L100.0100, L501.2450, L700.6800 ####[facility] [address] [place], [address] Albumin/Globulin [Mass ratio] 1.4 {ratio} Normal 0.9-2.4 [facility] Comment on above: Performed By: #### L 500.4050, L100.0100, L501.2450, L700.6800 ####[facility] [address] [place], [address] ALK PHOS 60 U/L Normal 35-104 [facility] Comment on above: Performed By: #### L 500.4050, L100.0100, L501.2450, L700.6800 ####[facility] [address] [place], [address] ALT [Catalytic activity/Vol] 26 U/L Normal <=34 [facility] Comment on above: Performed By: #### L 500.4050, L100.0100, L501.2450, L700.6800 ####[facility] [address] [place], [address] AST [Catalytic activity/Vol] 14 U/L Normal <=31 [facility] Comment on above: Performed By: #### L 500.4050, L100.0100, L501.2450, L700.6800 ####[facility] [address] [place], [address] Bilirubin [Mass/Vol] 0.21 mg/dL Normal 0.00-1.30 [facility] Comment on above: Performed By: #### L 500.4050, L100.0100, L501.2450, L700.6800 ####[facility] [address] [place], [address] BUN/CRE 26.4 RATIO High 10-20 [facility] Comment on above: Performed By: #### L 500.4050, L100.0100, L501.2450, L700.6800 ####[facility] [address] [place], [address] Calcium [Mass/Vol] 9.2 mg/dL Normal 7.6-11.0 [facility] Comment on above: Performed By: #### L 500.4050, L100.0100, L501.2450, L700.6800 ####[facility] [address] [place], [address] Chloride [Moles/Vol] 107 mmol/L Normal 98-108 [facility] Comment on above: Performed By: #### L 500.4050, L100.0100, L501.2450, L700.6800 ####[facility] [address] [place], [address] CO2 [Moles/Vol] 23.9 mmol/L Normal 21.0-32.0 [facility] Comment on above: Performed By: #### L 500.4050, L100.0100, L501.2450, L700.6800 ####[facility] [address] [place], [address] Creatinine [Mass/Vol] 0.48 mg/dL Low 0.70-1.20 [facility] Comment on above: Performed By: #### L 500.4050, L100.0100, L501.2450, L700.6800 ####[facility] [address] [place], [address] ECRCL 243.10 ml/min Normal 50-250 [facility] Comment on above: Performed By: #### L 500.4050, L100.0100, L501.2450, L700.6800 ####[facility] [address] [place], [address] GAP 8 Normal 5-15 [facility] Comment on above: Performed By: #### L 500.4050, L100.0100, L501.2450, L700.6800 ####[facility] [address] [place], [address] GFR/1.73 sq M.predicted among non-blacks MDRD (S/P/Bld) [Vol rate/Area] 133 mL/min/{1.73_m2} Normal >60 [facility] Comment on above: Result Comment: mL/m in/1.73m2 CKD-EPI Creatinine Equation (2020) Performed By: #### L 500.4050, L100.0100, L501.2450, L700.6800 ####[facility] [address] [place], [address] Globulin (S) [Mass/Vol] 2.7 g/dL Normal 2.2-4.2 [facility] Comment on above: Performed By: #### L 500.4050, L100.0100, L501.2450, L700.6800 ####[facility] [address] [place], [address] Glucose [Mass/Vol] 107 mg/dL High 70-99 [facility] Comment on above: Performed By: #### L 500.4050, L100.0100, L501.2450, L700.6800 ####[facility] [address] [place], [address] Potassium [Moles/Vol] 4.0 mmol/L Normal 3.3-5.1 [facility] Comment on above: Performed By: #### L 500.4050, L100.0100, L501.2450, L700.6800 ####[facility] [address] [place], [address] Sodium [Moles/Vol] 139 mmol/L Normal 133-145 [facility] Comment on above: Performed By: #### L 500.4050, L100.0100, L501.2450, L700.6800 ####[facility] [address] [place], [address] T PROT 6.6 g/dL Normal 5.9-8.4 [facility] Comment on above: Performed By: #### L 500.4050, L100.0100, L501.2450, L700.6800 ####[facility] [address] [place], [address] Urea nitrogen [Mass/Vol] 13 mg/dL Normal 4-19 [facility] Comment on above: Performed By: #### L 500.4050, L100.0100, L501.2450, L700.6800 ####[facility] [address] [place], [address] Emergency Department Summary on 05-08-2024 Emergency Department Summary Normal [facility] Eosinophil percentageOrdered By: Stan Lin on 05-08-2024 Eosinophils/100 WBC (Bld) 0.5 % 0-5 [facility] Epithelial cells.squamous LM Ql (Urine sed)Ordered By: Stan Lin on 05-08-2024 Epithelial cells.squamous LM.HPF (Urine sed) [#/Area] 0 /[HPF] 5-10 [facility] Erythrocyte distribution wid th ratioOrdered By: Stan Lin on 05-08-2024 Erythrocyte distribution width (RBC) [Ratio] 14.1 % 11.6-14.6 [facility] Erythrocyte distribution wid th standard deviationOrdered By: Stan Lin on 05-08-2024 Erythrocyte distribution width (RBC) [Entitic vol] 43.0 fL 35.1-43.9 [facility] Erythrocyte distribution width (RBC) [Ratio] 43.0 fl 35.1-43.9 [facility] Estimation of creatinine thad aranceOrdered By: Stan Lin on 05-08-2024 Estimated Creatinine Clearance Calc 243.10 ml/min 50-250 [facility] GFR/1.73 sq M.predicted janet g non-blacks MDRD (S/P/Bld) [Vol rate/Area]Ordered By: Stan Lin on 05-08-2024 Estimated GFR (MDRD) Non-Af Amer 133 >60 [facility] Comment on above: mL/min/1.73m2 CKD-EP I Creatinine Equation (2020) Glomerular filtration rate ( GFR) estimation/1.73 sq m using serum, plasma, or whole bOrdered By: Stan Lin on 05-08-2024 GFR/1.73 sq M.predicted among non-blacks MDRD (S/P/Bld) [Vol rate/Area] 133 mL/min/{1.73_m2} >60 [facility] Comment on above: mL/min/1.73m2 CKD-EP I Creatinine Equation (2020) Glucose Ql (U)Ordered By: Doroteo Lin on 05-08-2024 Urine Glucose (UA) Normal mg/dl Normal [facility] Hematocrit Auto (Bld) [Volum e fraction]Ordered By: Stan Lin on 05-08-2024 Hematocrit (Bld) [Volume fraction] 37.3 % 37-47 [facility] Hemoglobin measurementOrdere d By: Stan Lin on 05-08-2024 Hemoglobin (Bld) [Mass/Vol] 12.5 g/dL 12.0-15.0 [facility] Immature granulocytes/100 WB C Auto (Bld)Ordered By: Stan Lin on 05-08-2024 Immature granulocytes/100 WBC (Bld) 0.300 % 0.0-0.9 [facility] Comment on above: IG% - Immature Granu locytes (promyelocytes, myelocytes and metamyelocytes) > 1% indicates that a LEFT SHIFT is Present. Ketones Test strip Ql (U)Ord ered By: Stan Lin on 05-08-2024 Ketones Ql (U) Negative Negative [facility] Laboratory - Chemistry and C hemistry - challengeOrdered By: Stan Lin on 05-08-2024 AST [Catalytic activity/Vol] 14 U/L <32 [facility] Lipaseon 05-08-2024 Lipase [Catalytic activity/Vol] 32 U/L Normal 13-75 [facility] Comment on above: Result Comment: Plea se note:LIPASE revised reference range effective 22.New Lipase methodology. Expected to produce lower valuesthan the previous assay method.NEW Reference Range: 13 - 75 U/L Performed By: #### L 500.4050, L100.0100, L501.2450, L700.6800 ####[facility] [address] [place], [place], [id number] Lipase measurementOrdered By : Stan Lin on 03-20-2025 Lipase [Catalytic activity/Vol] 32 U/L 13-75 [facility] Comment on above: Please note:LIPASE r evised reference range effective 22. New Lipase methodology. Expected to produce lower values than the previous assay method. NEW Reference Range: 13 - 75 U/L Lymphocytes Auto (Unsp spec) [#/Vol]Ordered By: Stan Lin on 05-08-2024 Lymphocytes (Bld) [#/Vol] 2.37 10*3/uL 0.83-4.51 [facility] Lymphocytes/100 WBC Auto (Un sp spec)Ordered By: Stan Lin on 05-08-2024 Lymphocytes/100 WBC (Bld) 30.5 % 19-41 [facility] MCV (mean corpuscular volume ) determinationOrdered By: Stan Lin on 05-08-2024 MCV (RBC) [Entitic vol] 83.3 fL 81-99 [facility] Mean corpuscular hemoglobin (MCH) determinationOrdered By: Stan Lin on 05-08-2024 MCH (RBC) [Entitic mass] 27.9 pg 27.0-32.0 [facility] Mean corpuscular hemoglobin concentration (MCHC) determinationOrdered By: Stan Lin on 05-08-2024 MCHC (RBC) [Mass/Vol] 33.5 g/dL 32-36 [facility] Comment on above: Delta: 31.7 on 05/07-854 Mean platelet volume determi nationOrdered By: Stan Lin on 05-08-2024 Platelet mean volume (Bld) [Entitic vol] 9.0 fL 6.2-12.0 [facility] Microscopic analysis of urin e for red blood cells (RBC)Ordered By: Stan Lin on 05-08-2024 Microscopic analysis of urine for red blood cells (RBC) 0-5 SEEN /hpf 0-5 [facility] Urine RBC 0-5 SEEN /hpf 0-5 [facility] Monocyte percentageOrdered B y: Stan Lin on 05-08-2024 Monocytes/100 WBC (Bld) 10.3 % High 0-10 [facility] Mucus LM Ql (Urine sed)Order ed By: Stan Lin on 03-20-2025 Mucus Ql (Urine sed) 0 SEEN /hpf [facility] Neutrophil percentageOrdered By: Stan Lin on 05-08-2024 Neutrophils/100 WBC (Bld) 58.1 % 47-70 [facility] Nitrite Test strip Ql (U)Ord ered By: Stan Lin on 05-08-2024 Nitrite Ql (U) Negative Negative [facility] No Panel InformationOrdered By: Stan Lin on 05-08-2024 14 U/L <32 [facility] Nucleated red blood cell per centageOrdered By: Stan Lin on 05-08-2024 Nucleated RBC/100 WBC (Bld) [Ratio] 0 % 0-5 [facility] Platelet countOrdered By: Doroteo Lin on 05-08-2024 Platelets (Bld) [#/Vol] 356 10*3/uL 150-450 [facility] Potassium (Unsp spec) [Mass/ Vol]Ordered By: Stan Lin on 05-08-2024 Potassium [Moles/Vol] 4.0 mmol/L 3.3-5.1 [facility] Potassium measurement (mass/ volume)Ordered By: Stan Lin on 05-08-2024 Potassium (Unsp spec) [Mass/Vol] 4.0 mmol/L 3.3-5.1 [facility] ,Serum,hCG Quali.on 05-08-2024 HCG, SERUM QUAL Negative Normal [facility] Comment on above: Performed By: #### L 500.4050, L100.0100, L501.2450, L700.6800 ####[facility] [address] [facility] [place], [address] Protein Test strip Ql (U)Ord ered By: Stan Lin on 05-08-2024 Protein Ql (U) 15 mg/dl High Negative [facility] RBC Auto (Bld) [#/Vol]Ordere d By: Stan Lin on 05-08-2024 RBC (Bld) [#/Vol] 4.48 10*6/uL 4.2-5.4 [facility] Serum beta-hCG test, qualita tiveOrdered By: Stan Lin on 05-08-2024 Beta HCG ( test) Ql Negative [facility] Serum creatinine measurement (mass/volume)Ordered By: Stan Lin on 05-08-2024 Creatinine [Mass/Vol] 0.48 mg/dL Low 0.70-1.20 [facility] Serum globulin measurementOr dered By: Stan Lin on 05-08-2024 Globulin (S) [Mass/Vol] 2.7 g/dL 2.2-4.2 [facility] Serum glucose measurement (m ass/volume)Ordered By: Stan Lin on 05-08-2024 Glucose [Mass/Vol] 107 mg/dL High 70-99 [facility] Serum or plasma alanine godinez otransferase (ALT) measurementOrdered By: Stan Lni on 05-08-2024 ALT [Catalytic activity/Vol] 26 U/L <35 [facility] Serum or plasma albumin cherelle urement (mass/volume)Ordered By: Stan Lin on 05-08-2024 Albumin [Mass/Vol] 3.9 g/dL 3.5-5.0 [facility] Serum or plasma albumin/glob ulin mass ratioOrdered By: Stan Lin on 05-08-2024 Albumin/Globulin [Mass ratio] 1.4 {ratio} 0.9-2.4 [facility] Serum or plasma alkaline rohit sphatase measurementOrdered By: Stan Lin on 05-08-2024 ALP [Catalytic activity/Vol] 60 U/L 35-104 [facility] Serum or plasma calcium cherelle urement (mass/volume)Ordered By: Stan Lin on 05-08-2024 Calcium [Mass/Vol] 9.2 mg/dL 7.6-11.0 [facility] Serum or plasma urea nitroge n measurement (mass/volume)Ordered By: Stan Lin on 05-08-2024 Urea nitrogen [Mass/Vol] 13 mg/dL 4-19 [facility] Sodium levelOrdered By: Jeanne Lin on 05-08-2024 Sodium [Moles/Vol] 139 mmol/L 133-145 [facility] Squamous epithelial cells de tection in urine sediment by light microscopyOrdered By: Stan Lin on 05-08-2024 Epithelial cells.squamous LM Ql (Urine sed) 0-5 SEEN /hpf 5-10 [facility] Total proteinOrdered By: Bhargav Lin on 05-08-2024 Protein [Mass/Vol] 6.6 g/dL 5.9-8.4 [facility] Transitional cells LM Ql (Ur ine sed)Ordered By: Stan Lin on 05-08-2024 Urine Transitional Epithelial Cells 0-5 SEEN /hpf 0-5 [facility] Transitional cells detection in urine sediment by light microscopyOrdered By: Stan Lin on 05-08-2024 Transitional cells LM Ql (Urine sed) 0-5 SEEN /hpf 0-5 [facility] Urinalysis, Completeon 05-08 WBC 5-10 SEEN Normal 0-5 [facility] Comment on above: Order Comment: SELENA CTOR TO SPECIFY Performed By: #### L 400.0001 ####[facility] [address] [place], [place], [id number] EPI,TRANSITION 0-5 SEEN Normal 0-5 [facility] Comment on above: Order Comment: SELENA CTOR TO SPECIFY Performed By: #### L 400.0001 ####[facility] [address] [place], [place], [phone] RBC 0-5 SEEN Normal 0-5 [facility] Comment on above: Order Comment: SELENA CTOR TO SPECIFY Performed By: #### L 400.0001 ####[facility] [address] [place], [place], [phone] BACTERIA 1+ /hpf Normal None Seen [facility] Comment on above: Order Comment: SELENA CTOR TO SPECIFY Performed By: #### L 400.0001 ####[facility] [address] [place], [place], [phone] EPI,SQUAMOUS 0-5 SEEN Normal 5-10 [facility] Comment on above: Order Comment: SELENA CTOR TO SPECIFY Performed By: #### L 400.0001 ####[facility] [address] [place], [place], [id number] Mucus Ql (Urine sed) 0 SEEN Normal [facility] Comment on above: Order Comment: COLLE CTOR TO SPECIFY Performed By: #### L 400.0001 ####[facility] [address] [place], [place], [id number] Urine blood detectionOrdered By: Stan Lin on 05-08-2024 Urine Occult Blood 10 /ul High Negative [facility] Urine clarityOrdered By: Bhargav Lin on 05-08-2024 Clarity (U) Clear Clear [facility] Urine color determinationOrd ered By: Stan Lin on 05-08-2024 Color (U) Yellow Yellow [facility] Urine glucose detectionOrder ed By: Stan Lin on 05-08-2024 Glucose Ql (U) Normal mg/dl Normal [facility] Urine leukocyte esterase det ection by dipstickOrdered By: Stan Lin on 05-08-2024 Leukocyte esterase Test strip Ql (U) 25 /ul High Negative [facility] Urine pHOrdered By: Stan patricia on 05-08-2024 pH (U) 7.0 [pH] 5.0 - 8.0 [facility] Urine sediment bacteria coun t by microscopy (number/high power field)Ordered By: Stan Lin on 05-08-2024 Bacteria LM.HPF (Urine sed) [#/Area] 1 /[HPF] None Seen [facility] Urine specific gravity measu rementOrdered By: Stan Lin on 05-08-2024 Specific gravity (U) [Rel density] 1.005 1.002-1.030 [facility] Urine urobilinogen measureme ntOrdered By: Stan Lin on 05-08-2024 Urobilinogen Ql (U) Normal mg/dl Normal [facility] Urobilinogen Ql (U)Ordered B y: Stan Lin on 05-08-2024 Urine Urobilinogen Normal mg/dl Normal [facility] White blood cell (WBC) count Ordered By: Stan Lin on 05-08-2024 WBC (Bld) [#/Vol] 7.8 10*3/uL 4.4-11.0 [facility] White blood cell countOrdere d By: Stan Lin on 05-08-2024 Urine WBC 5-10 SEEN /hpf 0-5 [facility] White blood cell count 5-10 SEEN /hpf 0-5 [facility] Absolute lymphocyte countOrd ered By: Zebulun Beam on 05-07-2024 Lymphocytes Auto (Unsp spec) [#/Vol] 1.95 10*3/uL 0.83-4.51 [facility] Absolute neutrophil countOrd ered By: Zebulun Beam on 05-07-2024 Neutrophils (Bld) [#/Vol] 4.9 10*3/uL 2.0-7.7 [facility] Automated lymphocyte count a s percentage of total leukocytesOrdered By: Zebulun Beam on 05-07-2024 Lymphocytes/100 WBC Auto (Unsp spec) 25.4 % - [facility] Basophil percentageOrdered B y: Zebulun Beam on 05-07-2024 Basophils/100 WBC (Bld) 0.5 % 0-1 [facility] CBC W/Diff, Automatedon 04-19 Absolute Lymph 1.95 X10 3/uL Normal 0.83-4.51 [facility] Comment on above: Performed By: #### L 100.0100, L501.9985 ####[facility] [address] [facility] [place], [address] Absolute Neut 4.9 X10 3/uL Normal 2.0-7.7 [facility] Comment on above: Performed By: #### L 100.0100, L501.9985 ####[facility] [address] [place], [address] Basophils/100 WBC (Bld) 0.5 % Normal 0-1 [facility] Comment on above: Performed By: #### L 100.0100, L501.9985 ####[facility] [address] [place], [address] Eosinophils/100 WBC (Bld) 0.4 % Normal 0-5 [facility] Comment on above: Performed By: #### L 100.0100, L501.9985 ####[facility] [address] [place], [address] Erythrocyte distribution width (RBC) [Ratio] 14.0 % Normal 11.6-14.6 [facility] Comment on above: Performed By: #### L 100.0100, L501.9985 ####[facility] [address] [place], [address] Hematocrit (Bld) [Volume fraction] 40.1 % Normal 37-47 [facility] Comment on above: Performed By: #### L 100.0100, L5.9985 ####[facility] [address] [place], [address] Hemoglobin (Bld) [Mass/Vol] 12.7 g/dL Normal 12.0-15.0 [facility] Comment on above: Performed By: #### L 100.0100, L5.85 ####[facility] [address] [place], [address] IG% 0.300 Normal 0.0-0.9 [facility] Comment on above: Result Comment: IG% - Immature Granulocytes (promyelocytes, myelocytes andmetamyelocytes) > 1% indicates that a LEFT SHIFT is Present. Performed By: #### L 100.0100, L501.9985 ####[facility] [address] [place], [address] Lymphocytes/100 WBC (Bld) 25.4 % Normal 19-41 [facility] Comment on above: Performed By: #### L 100.0100, L501.9985 ####[facility] [address] [place], [address] MCH (RBC) [Entitic mass] 26.9 pg Low 27.0-32.0 [facility] Comment on above: Performed By: #### L 100.0100, L5.85 ####[facility] [address] [place], [address] MCHC (RBC) [Mass/Vol] 31.7 g/dL Low 32-36 [facility] Comment on above: Performed By: #### L 100.0100, L501.9985 ####[facility] [address] [place], [address] MCV (RBC) [Entitic vol] 85.0 fL Normal 81-99 [facility] Comment on above: Performed By: #### L 100.0100, L501.9985 ####[facility] [address] [place], [address] Monocytes/100 WBC (Bld) 9.1 % Normal 0-10 [facility] Comment on above: Performed By: #### L 100.0100, L501.9985 ####[facility] [address] [place], [address] Neutrophils/100 WBC (Bld) 64.3 % Normal 47-70 [facility] Comment on above: Performed By: #### L 100.0100, L501.9985 ####[facility] [address] [place], [address] Nucleated RBC (Bld) [#/Vol] 0 10*3/uL Normal 0-5 [facility] Comment on above: Performed By: #### L 100.0100, L501.9985 ####[facility] [address] [place], [address] Platelet mean volume (Bld) [Entitic vol] 9.4 fL Normal 6.2-12.0 [facility] Comment on above: Performed By: #### L 100.0100, L501.9985 ####[facility] [address] [place], [address] Platelets (Bld) [#/Vol] 380 10*3/uL Normal 150-450 [facility] Comment on above: Performed By: #### L 100.0100, L501.9985 ####[facility] [address] [place], [address] RBC (Bld) [#/Vol] 4.72 10*6/uL Normal 4.2-5.4 [facility] Comment on above: Performed By: #### L 100.0100, L501.9985 ####[facility] [address] [place], [address] RDW SD 43.4 fl Normal 35.1-43.9 [facility] Comment on above: Performed By: #### L 100.0100, L501.9985 ####[facility] [address] [place], [address] WBC (Bld) [#/Vol] 7.7 10*3/uL Normal 4.4-11.0 [facility] Comment on above: Performed By: #### L 100.0100, L501.9985 ####[facility] [address] [place], [address] Eosinophil percentageOrdered By: Zebulun Beam on 05-07-2024 Eosinophils/100 WBC (Bld) 0.4 % 0-5 [facility] Erythrocyte distribution wid th ratioOrdered By: Zebulun Beam on 05-07-2024 Erythrocyte distribution width (RBC) [Ratio] 14.0 % 11.6-14.6 [facility] Erythrocyte distribution wid th standard deviationOrdered By: Zebulun Beam on 05-07-2024 Erythrocyte distribution width (RBC) [Entitic vol] 43.4 fL 35.1-43.9 [facility] Erythrocyte distribution width (RBC) [Ratio] 43.4 fl 35.1-43.9 [facility] Hematocrit Auto (Bld) [Volum e fraction]Ordered By: Zebulun Beam on 05-07-2024 Hematocrit (Bld) [Volume fraction] 40.1 % 37-47 [facility] Hemoglobin A1con 05-07-2024 HbA1c (Bld) [Mass fraction] 5.9 % Normal <=5.6 [facility] Comment on above: Performed By: #### L 100.0100, L501.9985 ####[facility] [address] [place], [address] Hemoglobin A1c percentageOrd ered By: kwasiluadalgisa Beam on 05-07-2024 HbA1c (Bld) [Mass fraction] 5.9 % >5.7 [facility] Hemoglobin measurementOrdere d By: [facility] Beam on 05-07-2024 Hemoglobin (Bld) [Mass/Vol] 12.7 g/dL 12.0-15.0 [facility] Immature granulocytes/100 WB C Auto (Bld)Ordered By: [facility] Be[facility] on 05-07-2024 Immature granulocytes/100 WBC (Bld) 0.300 % 0.0-0.9 [facility] Comment on above: IG% - Immature Granu locytes (promyelocytes, myelocytes and metamyelocytes) > 1% indicates that a LEFT SHIFT is Present. Lymphocytes Auto (Unsp spec) [#/Vol]Ordered By: [facility] Beam on 05-07-2024 Lymphocytes (Bld) [#/Vol] 1.95 10*3/uL 0.83-4.51 [facility] Lymphocytes/100 WBC Auto (Un sp spec)Ordered By: [facility] Beam on 05-07-2024 Lymphocytes/100 WBC (Bld) 25.4 % 19-41 [facility] MCV (mean corpuscular volume ) determinationOrdered By: [facility] Be[facility] on 05-07-2024 MCV (RBC) [Entitic vol] 85.0 fL 81-99 [facility] Mean corpuscular hemoglobin (MCH) determinationOrdered By: [facility] Beam on 05-07-2024 MCH (RBC) [Entitic mass] 26.9 pg Low 27.0-32.0 [facility] Mean corpuscular hemoglobin concentration (MCHC) determinationOrdered By: [facility] Beam on 05-07-2024 MCHC (RBC) [Mass/Vol] 31.7 g/dL Low 32-36 [facility] Mean platelet volume determi nationOrdered By: Zebulun Beam on 05-07-2024 Platelet mean volume (Bld) [Entitic vol] 9.4 fL 6.2-12.0 [facility] Monocyte percentageOrdered B y: Zebulun Beam on 05-07-2024 Monocytes/100 WBC (Bld) 9.1 % 0-10 [facility] Neutrophil percentageOrdered By: Zebulun Beam on 05-07-2024 Neutrophils/100 WBC (Bld) 64.3 % 47-70 [facility] Nucleated red blood cell per centageOrdered By: Zebulun Beam on 05-07-2024 Nucleated RBC/100 WBC (Bld) [Ratio] 0 % 0-5 [facility] Platelet countOrdered By: Ze bulun Beam on 05-07-2024 Platelets (Bld) [#/Vol] 380 10*3/uL 150-450 [facility] RBC Auto (Bld) [#/Vol]Ordere d By: Zebulun Beam on 05-07-2024 RBC (Bld) [#/Vol] 4.72 10*6/uL 4.2-5.4 [facility] White blood cell (WBC) count Ordered By: Zebulun Beam on 05-07-2024 WBC (Bld) [#/Vol] 7.7 10*3/uL 4.4-11.0 [facility] Absolute lymphocyte countOrd ered By: Zebulun Beam on 04-22-2024 Lymphocytes Auto (Unsp spec) [#/Vol] 1.96 10*3/uL 0.83-4.51 [facility] Absolute neutrophil countOrd ered By: Zebulun Beam on 04-22-2024 Neutrophils (Bld) [#/Vol] 4.8 10*3/uL 2.0-7.7 [facility] Anion gap in Serum or Plasma Ordered By: Zebulun Beam on 04-22-2024 Anion gap [Moles/Vol] 15 mmol/L 5-15 [facility] Automated lymphocyte count a s percentage of total leukocytesOrdered By: Zebulun Beam on 04-22-2024 Lymphocytes/100 WBC Auto (Unsp spec) 26.0 % 19-41 [facility] BUN/creatinine ratioOrdered By: Zebulun Beam on 04-22-2024 Urea nitrogen/Creatinine [Mass ratio] 17.7 mg/mg 10-20 [facility] Basophil percentageOrdered B y: Zebulun Beam on 04-22-2024 Basophils/100 WBC (Bld) 0.5 % 0-1 [facility] Bilirubin, totalOrdered By: Zebulun Beam on 04-22-2024 Bilirubin [Mass/Vol] 0.33 mg/dL 0.00-1.30 [facility] CBC W/Diff, Automatedon Absolute Lymph 1.96 X10 3/uL Normal 0.83-4.51 [facility] Comment on above: Performed By: #### L 500.4050, L100.0100 ####[facility] [address] [place], [address] Absolute Neut 4.8 X10 3/uL Normal 2.0-7.7 [facility] Comment on above: Performed By: #### L 500.4050, L100.0100 ####[facility] [address] [place], [address] Basophils/100 WBC (Bld) 0.5 % Normal 0-1 [facility] Comment on above: Performed By: #### L 500.4050, L100.0100 ####[facility] [address] [place], [address] Eosinophils/100 WBC (Bld) 0.7 % Normal 0-5 [facility] Comment on above: Performed By: #### L 500.4050, L100.0100 ####[facility] [address] [place], [address] Erythrocyte distribution width (RBC) [Ratio] 13.7 % Normal 11.6-14.6 [facility] Comment on above: Performed By: #### L 500.4050, L100.0100 ####[facility] [address] [place], [address] Hematocrit (Bld) [Volume fraction] 37.9 % Normal 37-47 [facility] Comment on above: Performed By: #### L 500.4050, L100.0100 ####[facility] [address] [place], [address] Hemoglobin (Bld) [Mass/Vol] 12.1 g/dL Normal 12.0-15.0 [facility] Comment on above: Performed By: #### L 500.4050, L100.0100 ####[facility] [address] [place], [address] IG% 0.100 Normal 0.0-0.9 [facility] Comment on above: Result Comment: IG% - Immature Granulocytes (promyelocytes, myelocytes andmetamyelocytes) > 1% indicates that a LEFT SHIFT is Present. Performed By: #### L 500.4050, L100.0100 ####[facility] [address] [place], [address] Lymphocytes/100 WBC (Bld) 26.0 % Normal 19-41 [facility] Comment on above: Performed By: #### L 500.4050, L100.0100 ####[facility] [address] [place], [address] MCH (RBC) [Entitic mass] 26.9 pg Low 27.0-32.0 [facility] Comment on above: Performed By: #### L 500.4050, L100.0100 ####[facility] [address] [place], [address] MCHC (RBC) [Mass/Vol] 31.9 g/dL Low 32-36 [facility] Comment on above: Performed By: #### L 500.4050, L100.0100 ####[facility] [address] [place], [address] MCV (RBC) [Entitic vol] 84.2 fL Normal 81-99 [facility] Comment on above: Performed By: #### L 500.4050, L100.0100 ####[facility] [address] [place], [address] Monocytes/100 WBC (Bld) 8.5 % Normal 0-10 [facility] Comment on above: Performed By: #### L 500.4050, L100.0100 ####[facility] [address] [place], [address] Neutrophils/100 WBC (Bld) 64.2 % Normal 47-70 [facility] Comment on above: Performed By: #### L 500.4050, L100.0100 ####[facility] [address] [place], [address] Nucleated RBC (Bld) [#/Vol] 0 10*3/uL Normal 0-5 [facility] Comment on above: Performed By: #### L 500.4050, L100.0100 ####[facility] [address] [place], [address] Platelet mean volume (Bld) [Entitic vol] 9.6 fL Normal 6.2-12.0 [facility] Comment on above: Performed By: #### L 500.4050, L100.0100 ####[facility] [address] [place], [address] Platelets (Bld) [#/Vol] 352 10*3/uL Normal 150-450 [facility] Comment on above: Performed By: #### L 500.4050, L100.0100 ####[facility] [address] [place], [address] RBC (Bld) [#/Vol] 4.50 10*6/uL Normal 4.2-5.4 [facility] Comment on above: Performed By: #### L 500.4050, L100.0100 ####[facility] [address] [place], [address] RDW SD 41.9 fl Normal 35.1-43.9 [facility] Comment on above: Performed By: #### L 500.4050, L100.0100 ####[facility] [address] [place], [address] WBC (Bld) [#/Vol] 7.5 10*3/uL Normal 4.4-11.0 [facility] Comment on above: Performed By: #### L 500.4050, L100.0100 ####[facility] [address] [place], [address] Carbon dioxide, total [Moles /volume] in Central venous bloodOrdered By: Karuna Lim on 04-22-2024 CO2 [Moles/Vol] 20.4 mmol/L Low 21.0-32.0 [facility] Chloride assayOrdered By: Vazquez Lim on 04-22-2024 Chloride [Moles/Vol] 104 mmol/L 98-108 [facility] Comprehensive Metabolic Prof ilon 04-22-2024 Albumin [Mass/Vol] 3.7 g/dL Normal 3.5-5.0 [facility] Comment on above: Performed By: #### L 500.4050, L100.0100 ####[facility] [address] [place], [address] Albumin/Globulin [Mass ratio] 1.1 {ratio} Normal 0.9-2.4 [facility] Comment on above: Performed By: #### L 500.4050, L100.0100 ####[facility] [address] [place], [address] ALK PHOS 62 U/L Normal 35-104 [facility] Comment on above: Performed By: #### L 500.4050, L100.0100 ####[facility] [address] [place], [address] ALT [Catalytic activity/Vol] 19 U/L Normal <=34 [facility] Comment on above: Performed By: #### L 500.4050, L100.0100 ####[facility] [address] [place], [address] AST [Catalytic activity/Vol] 17 U/L Normal <=31 [facility] Comment on above: Performed By: #### L 500.4050, L100.0100 ####[facility] [address] [place], [address] Bilirubin [Mass/Vol] 0.33 mg/dL Normal 0.00-1.30 [facility] Comment on above: Performed By: #### L 500.4050, L100.0100 ####[facility] [address] [place], [address] BUN/CRE 17.7 RATIO Normal 10-20 [facility] Comment on above: Performed By: #### L 500.4050, L100.0100 ####[facility] [address] [place], [address] Calcium [Mass/Vol] 9.3 mg/dL Normal 7.6-11.0 [facility] Comment on above: Performed By: #### L 500.4050, L100.0100 ####[facility] [address] [place], [address] Chloride [Moles/Vol] 104 mmol/L Normal 98-108 [facility] Comment on above: Performed By: #### L 500.4050, L100.0100 ####[facility] [address] [place], [address] CO2 [Moles/Vol] 20.4 mmol/L Low 21.0-32.0 [facility] Comment on above: Performed By: #### L 500.4050, L100.0100 ####[facility] [address] [place], [address] Creatinine [Mass/Vol] 0.58 mg/dL Low 0.70-1.20 [facility] Comment on above: Performed By: #### L 500.4050, L100.0100 ####[facility] [address] [place], [address] GAP 15 Normal 5-15 [facility] Comment on above: Performed By: #### L 500.4050, L100.0100 ####[facility] [address] [place], [address] GFR/1.73 sq M.predicted among non-blacks MDRD (S/P/Bld) [Vol rate/Area] 127 mL/min/{1.73_m2} Normal >60 [facility] Comment on above: Result Comment: mL/m in/1.73m2 CKD-EPI Creatinine Equation (2020) Performed By: #### L 500.4050, L100.0100 ####[facility] [address] [place], [address] Globulin (S) [Mass/Vol] 3.3 g/dL Normal 2.2-4.2 [facility] Comment on above: Performed By: #### L 500.4050, L100.0100 ####[facility] [address] [place], [address] Glucose [Mass/Vol] 109 mg/dL High 70-99 [facility] Comment on above: Performed By: #### L 500.4050, L100.0100 ####[facility] [address] [place], [address] Potassium [Moles/Vol] 4.3 mmol/L Normal 3.3-5.1 [facility] Comment on above: Performed By: #### L 500.4050, L100.0100 ####[facility] [address] [place], [address] Sodium [Moles/Vol] 139 mmol/L Normal 133-145 [facility] Comment on above: Performed By: #### L 500.4050, L100.0100 ####[facility] [address] [place], [address] T PROT 7.0 g/dL Normal 5.9-8.4 [facility] Comment on above: Performed By: #### L 500.4050, L100.0100 ####[facility] [address] [place], [address] Urea nitrogen [Mass/Vol] 10 mg/dL Normal 4-19 [facility] Comment on above: Performed By: #### L 500.4050, L100.0100 ####[facility] [address] [place], [address] Eosinophil percentageOrdered By: Paytonlun Beam on 04-22-2024 Eosinophils/100 WBC (Bld) 0.7 % 0-5 [facility] Erythrocyte distribution wid th ratioOrdered By: [facility] Beam on 04-22-2024 Erythrocyte distribution width (RBC) [Ratio] 13.7 % 11.6-14.6 [facility] Erythrocyte distribution wid th standard deviationOrdered By: [facility] Beam on 04-22-2024 Erythrocyte distribution width (RBC) [Entitic vol] 41.9 fL 35.1-43.9 [facility] Erythrocyte distribution width (RBC) [Ratio] 41.9 fl 35.1-43.9 [facility] GFR/1.73 sq M.predicted janet g non-blacks MDRD (S/P/Bld) [Vol rate/Area]Ordered By: Paytonlun Beam on 04-22-2024 Estimated GFR (MDRD) Non-Af Amer 127 >60 [facility] Comment on above: mL/min/1.73m2 CKD-EP I Creatinine Equation (2020) Glomerular filtration rate ( GFR) estimation/1.73 sq m using serum, plasma, or whole bOrdered By: Karuna Lim on 04-22-2024 GFR/1.73 sq M.predicted among non-blacks MDRD (S/P/Bld) [Vol rate/Area] 127 mL/min/{1.73_m2} >60 [facility] Comment on above: mL/min/1.73m2 CKD-EP I Creatinine Equation (2020) Hematocrit Auto (Bld) [Volum e fraction]Ordered By: Karuna Lim on 04-22-2024 Hematocrit (Bld) [Volume fraction] 37.9 % 37-47 [facility] Hemoglobin measurementOrdere d By: Karuna Lim on 04-22-2024 Hemoglobin (Bld) [Mass/Vol] 12.1 g/dL 12.0-15.0 [facility] Immature granulocytes/100 WB C Auto (Bld)Ordered By: Karuna Lim on 04-22-2024 Immature granulocytes/100 WBC (Bld) 0.100 % 0.0-0.9 [facility] Comment on above: IG% - Immature Granu locytes (promyelocytes, myelocytes and metamyelocytes) > 1% indicates that a LEFT SHIFT is Present. Laboratory - Chemistry and C hemistry - challengeOrdered By: Karuna Lim on 04-22-2024 AST [Catalytic activity/Vol] 17 U/L <32 [facility] Lymphocytes Auto (Unsp spec) [#/Vol]Ordered By: Karuna Lim on 04-22-2024 Lymphocytes (Bld) [#/Vol] 1.96 10*3/uL 0.83-4.51 [facility] Lymphocytes/100 WBC Auto (Un sp spec)Ordered By: Karuna Lim on 04-22-2024 Lymphocytes/100 WBC (Bld) 26.0 % 19-41 [facility] MCV (mean corpuscular volume ) determinationOrdered By: Karuna Lim on 04-22-2024 MCV (RBC) [Entitic vol] 84.2 fL 81-99 [facility] Mean corpuscular hemoglobin (MCH) determinationOrdered By: Karuna Lim on 04-22-2024 MCH (RBC) [Entitic mass] 26.9 pg Low 27.0-32.0 [facility] Mean corpuscular hemoglobin concentration (MCHC) determinationOrdered By: Zebulun Beam on 04-22-2024 MCHC (RBC) [Mass/Vol] 31.9 g/dL Low 32-36 [facility] Mean platelet volume determi nationOrdered By: Zebulun Beam on 04-22-2024 Platelet mean volume (Bld) [Entitic vol] 9.6 fL 6.2-12.0 [facility] Monocyte percentageOrdered B y: Zebulun Beam on 04-22-2024 Monocytes/100 WBC (Bld) 8.5 % 0-10 [facility] Neutrophil percentageOrdered By: Zebulun Beam on 04-22-2024 Neutrophils/100 WBC (Bld) 64.2 % 47-70 [facility] Nucleated red blood cell per centageOrdered By: Zebulun Beam on 04-22-2024 Nucleated RBC/100 WBC (Bld) [Ratio] 0 % 0-5 [facility] Platelet countOrdered By: Ze bulun Beam on 04-22-2024 Platelets (Bld) [#/Vol] 352 10*3/uL 150-450 [facility] Potassium (Unsp spec) [Mass/ Vol]Ordered By: Zebulun Beam on 04-22-2024 Potassium [Moles/Vol] 4.3 mmol/L 3.3-5.1 [facility] Potassium measurement (mass/ volume)Ordered By: Zebulun Beam on 04-22-2024 Potassium (Unsp spec) [Mass/Vol] 4.3 mmol/L 3.3-5.1 [facility] RBC Auto (Bld) [#/Vol]Ordere d By: Zebulun Beam on 04-22-2024 RBC (Bld) [#/Vol] 4.50 10*6/uL 4.2-5.4 [facility] Serum creatinine measurement (mass/volume)Ordered By: Zebulun Beam on 04-22-2024 Creatinine [Mass/Vol] 0.58 mg/dL Low 0.70-1.20 [facility] Serum globulin measurementOr dered By: Karuna Lim on 04-22-2024 Globulin (S) [Mass/Vol] 3.3 g/dL 2.2-4.2 [facility] Serum glucose measurement (m ass/volume)Ordered By: Karuna Lim on 04-22-2024 Glucose [Mass/Vol] 109 mg/dL High 70-99 [facility] Serum or plasma alanine godinez otransferase (ALT) measurementOrdered By: Karuna Lim on 04-22-2024 ALT [Catalytic activity/Vol] 19 U/L <35 [facility] Serum or plasma albumin cherelle urement (mass/volume)Ordered By: Karuna Lim on 04-22-2024 Albumin [Mass/Vol] 3.7 g/dL 3.5-5.0 [facility] Serum or plasma albumin/glob ulin mass ratioOrdered By: Karuna Lim on 04-22-2024 Albumin/Globulin [Mass ratio] 1.1 {ratio} 0.9-2.4 [facility] Serum or plasma alkaline rohit sphatase measurementOrdered By: Karuna Lim on 04-22-2024 ALP [Catalytic activity/Vol] 62 U/L 35-104 [facility] Serum or plasma calcium cherelle urement (mass/volume)Ordered By: Karuna Lim on 04-22-2024 Calcium [Mass/Vol] 9.3 mg/dL 7.6-11.0 [facility] Serum or plasma urea nitroge n measurement (mass/volume)Ordered By: Karuna Lim on 04-22-2024 Urea nitrogen [Mass/Vol] 10 mg/dL 4-19 [facility] Sodium levelOrdered By: Payton Lim on 04-22-2024 Sodium [Moles/Vol] 139 mmol/L 133-145 [facility] Total proteinOrdered By: Juventino Lim on 04-22-2024 Protein [Mass/Vol] 7.0 g/dL 5.9-8.4 [facility] White blood cell (WBC) count Ordered By: Karuna Lim on 04-22-2024 WBC (Bld) [#/Vol] 7.5 10*3/uL 4.4-11.0 [facility] CNOVon 04-15-2024 CNOV Office Visit (ENWSTR ) -------- MARION GUTIERREZ ([id number]) 1995 F Date Time Provider Department 04/15/24 11:20 AM JEY JOHNSON ENWSTR During your visit today, we recorded the following information about you: Pulse Respiration Blood pressure Weight 68/minute 20/minute 120/68 132.3 kg Height Last Period 1.702 m 04/13/24 Jey Johnson MD 04/20/2024 3:26 PM Signed Endocrinology and Metabolism Lyme Follow up note Chief complaint: Evaluation of [...] 30 to and then again started on 2/23/25. Nothing like this was seen since starting [...] Comments P (more content not 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 Normal [facility] CNOVon 04-14-2024 CNOV Office Visit (UCWSTR ) -------- MARION GUTIERREZ ([id number]) 1995 F Date Time Provider Department 04/14/24 4:00 PM LINCOLN BALDERAS [facility] During your visit today, we recorded the following information about you: Temperature Pulse Respiration Blood pressure 98.5 degrees 76/minute 18/minute 142/98 Weight 133.7 kg Lincoln Balderas MD 04/14/2024 4:34 PM Signed Patient presents with: Diarrhea: vomiting, cough, chills and fever x 4 days HPI: Feeling sick starting 4 days ago. 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 [employer] VERIO TEST STRIPS test strip 1 Each [...] BY MOUTH TWICE DAILY NEEDED FOR CONSTIPATION. [employer] DELICA PLUS LANCET 33 gauge 1 Each [...] for results if she cannot log into [employer] tomorrow. Continue supportive care for viral illness. She is beyond the therapeutic window for tamiflu. Lincoln Balderas MD Allergies As of Date: 04/14/2024 [...] Comments: Eats (more content not 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 Normal [facility] Urine Cultureon 02-06-2024 URC Below infection leve l. Mixed Gram Positive Organisms [place] Count 1000-10,000 MIXC Mixed contaminants. Submit a new specimen if indicated. Normal [facility] Comment on above: Performed By: #### M 100.2199, L4 ####[facility] [address] [place], [address] Bilirubin Test strip Ql (U)O rdered By: Zebulun Beam on 02-05-2024 Bilirubin Ql (U) Negative Negative [facility] Glucose Ql (U)Ordered By: Ze bulun Beam on 02-05-2024 Urine Glucose (UA) Normal mg/dl Normal [facility] Ketones Test strip Ql (U)Ord ered By: Zebulun Beam on 02-05-2024 Ketones Ql (U) Negative Negative [facility] Nitrite Test strip Ql (U)Ord ered By: Zebulun Beam on 02-05-2024 Nitrite Ql (U) Negative Negative [facility] Protein Test strip Ql (U)Ord ered By: Zebulun Beam on 02-05-2024 Protein Ql (U) 30 mg/dl High Negative [facility] Urinalysis, Routine (Dipstic k)on 02-05-2024 BILIRUBIN URINE Negative Normal Negative [facility] Comment on above: Order Comment: Urine , Random Performed By: #### M 100.2199, L4 ####[facility] [address] [place], [address] Clarity (U) Cloudy Normal Clear [facility] Comment on above: Order Comment: Urine , Random Performed By: #### M 100.2199, L4 ####[facility] [address] [place], [address] Color (U) Yellow Normal Yellow [facility] Comment on above: Order Comment: Urine , Random Performed By: #### M 100.0, L4 ####[facility] [address] [place], [address] GLUCOSE, UR Normal Normal Normal [facility] Comment on above: Order Comment: Urine , Random Performed By: #### M .2199, L4 ####[facility] [address] [place], [address] KETONE UR Negative Normal Negative [facility] Comment on above: Order Comment: Urine , Random Performed By: #### M 100.2199, ####[facility] [address] [place], [address] LEUK ESTERASE 25 /ul Abnormal Negative [facility] Comment on above: Order Comment: Urine , Random Performed By: #### M , ####[facility] [address] [place], [address] Nitrite Ql (U) Negative Normal Negative [facility] Comment on above: Order Comment: Urine , Random Performed By: #### M , ####[facility] [address] [place], [address] OCCULT BLOOD-UR 250 /ul Abnormal Negative [facility] Comment on above: Order Comment: Urine , Random Performed By: #### M , L4 ####[facility] [address] [place], [address] pH UR 6.0 Normal 5.0 - 8.0 [facility] Comment on above: Order Comment: Urine , Random Performed By: #### M , L4 ####[facility] [address] [place], [address] PROT DIPSTX 30 mg/dl Abnormal Negative [facility] Comment on above: Order Comment: Urine , Random Performed By: #### M , L4 ####[facility] [address] [place], [address] SP.GR. DIPSTX 1.015 Normal 1.002-1.030 [facility] Comment on above: Order Comment: Urine , Random Performed By: #### M 100.2200, L400.2010 ####[facility] [address] [place], [place], [address] UROBILI Normal Normal Normal [facility] Comment on above: Order Comment: Urine , Random Performed By: #### M 100.2200, L400.2010 ####[facility] [address] [place], [place], [address] Urine blood detectionOrdered By: Karuna Lim on 02-05-2024 Urine Occult Blood 250 /ul High Negative [facility] Urine clarityOrdered By: Juventino Lim on 02-05-2024 Clarity (U) Cloudy Clear [facility] Urine color determinationOrd ered By: Karuna Lim on 02-05-2024 Color (U) Yellow Yellow [facility] Urine cultureOrdered By: Juventino Lim on 02-05-2024 Bacteria identified Cx Nom (U) Positive Abnormal [facility] Urine leukocyte esterase det ection by dipstickOrdered By: Karuna Lim on 02-05-2024 Leukocyte esterase Test strip Ql (U) 25 /ul High Negative [facility] Urine pHOrdered By: Karuna Lim on 02-05-2024 pH (U) 6.0 [pH] 5.0 - 8.0 [facility] Urine specific gravity measu rementOrdered By: Karuna Lim on 02-05-2024 Specific gravity (U) [Rel density] 1.015 1.002-1.030 [facility] Urobilinogen Ql (U)Ordered B y: Karuna Lim on 02-05-2024 Urine Urobilinogen Normal mg/dl Normal [facility] CNOVon 01-25-2024 CNOV Office Visit (UCWSTR ) -------- MARION GUTIERREZ ([id number]) 1995 F Date Time Provider Department 01/25/24 1:30 PM [facility] During your visit today, we recorded the following information about you: Temperature Pulse Respiration Blood pressure 98.6 degrees 69/minute 20/minute 132/90 Weight 135 kg Louis Schmidt APRN.[facility] 01/25/2024 12:56 PM Signed CC: Patient presents [...] Inject 441 mg intramuscularly every 4 weeks. APJeT VERIO TEST STRIPS test strip 1 Each [...] BY MOUTH TWICE DAILY NEEDED FOR CONSTIPATION. AdiosoTOUCH DELICA PLUS LANCET 33 gauge 1 Each [...] two times a day for 7 days. oiptieeh-uvlxncenb-ymkyn cortisone (CORTISPORIN) 3.5-10,000-1 mg/mL-unit/mL-% otic suspension Use [...] Acute betty (more content not 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 Normal [facility] 01-25-[address] [facility] Telephone ([facility]) -------- MARION GUTIERREZ ([id number]) 1995 F Date Time Provider Department 01/25/24 MALLIKA MO [facility] During your visit today, we recorded the following information about you: Mallika Mo APRN.[facility] 01/25/2024 7:12 AM Signed Please notify that [...] Encounter Status:Closed by NATALEE RODRIGUEZ on 01/25/24 [facility] CNOVon 01-24-2024 CNOV Office Visit (UCWSTR ) -------- MARION GUTIERREZ ([id number]) 1995 F Date Time Provider Department 01/24/24 1:45 PM MARU GALICIA [facility] During your visit today, we recorded the following information about you: Temperature Pulse Respiration Blood pressure 97.9 degrees 73/minute 20/minute 128/82 Weight 135 kg Maru Galicia PA 01/24/2024 2:08 PM Signed This note was created using [employer]riter. Subjective Marion Gutierrez is a 28 year [...] Inject 441 mg intramuscularly every 4 weeks. APJeT VERIO TEST STRIPS test strip 1 Each [...] BY MOUTH TWICE DAILY NEEDED FOR CONSTIPATION. APJeT DELICA PLUS LANCET 33 gauge 1 Each [...] Effort: Pu (more content not 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 Normal [facility] COVID AND INFLUENZA A/B AND RSV PCR, ROUTINEon 01-24-2024 SARS-CoV-2 (COVID-19) RNA DAMARIS+probe Ql (Unsp spec) SARS-COV-2 (AGENT OF COVID-19) RNA: Not detected INFLUENZA A RNA: Not detected INFLUENZA B RNA: Not detected RESPIRATORY SYNCYTIAL VIRUS (RSV) RNA: Not detected Normal [facility] Comment on above: Performed By: #### 9 5941-1 #### [facility] CLIA [id number] [address] [place] [address] [place] STREP A MOLECULAR (POC)on Procedural Control Valid [facility] Strep A (POCT) Negative Negative [facility] Cardiology Visit Reporton Cardiology Visit Report Normal [facility] CNOVon 01-08-2024 CNOV Office Visit (ENWSTR ) -------- DOCARTUROMARION Crystal ([id number]) 1995 F Date Time Provider Department 01/08/24 11:40 AM JEY JOHNSON ENWSBIANCA During your visit today, we recorded the following information about you: Pulse Respiration Blood pressure Weight 72/minute 21/minute 122/76 133.4 kg Height Last Period 1.702 m 12/29/23 Jey Johnson MD 01/09/2024 6:32 PM Signed Endocrinology and Metabolism Lyme Follow up note Chief complaint: Evaluation of ovarian hyperandrogenism HPI Marion Marah Sarabiaarturo is a 28 year old female presenting [...] 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 Normal [facility] 12-19-[address] [facility] Telephone (HANNAHWSTR) -------- MARION GUTIERREZ ([id number]) 1995 F Date Time Provider Department 12/19/23 JEY JOHNSON During your visit today, we recorded the following information about you: Mane Bragg RN 12/19/2023 12:20 PM Signed Signed record release received from [facility] requesting previous OV notes from Dr. Johnson. Pt had 1 OV in 10/2023. This was faxed electronically through [employer] (formerly [employer]). Mane Bragg RN December 19, 2023 12:20 PM [...] BMI 40-49.9 (morbid obesity*10/26/2023 Encounter Status:Closed by MANE BRAGG on 12/19/23 Normal [facility] Culture, Anaerobic Any Sourc trey 12-10-2023 CUAN No anaerobic bacteri a isolated. Normal [facility] Comment on above: Performed By: #### M 100.4001, M100.2000, M100.3000 ####[facility] [address] [place], [address] Wound Cultureon 12-08-2023 WC Normal [facility] Comment on above: Performed By: #### M 100.4001, M100.1999, M100.3000 ####[facility] [address] [place], [address] Gram Stainon 12-06-2023 GS Gram Stain Rare Red Blood Cells No organisms seen Normal [facility] Comment on above: Performed By: #### M 100.4001, M100.1999, M100.3000 ####[facility] [address] [place], [address] ACTH Plas-mCncon 12-05-2023 Corticotropin (P) [Mass/Vol] 11.8 pg/mL Normal 7.2-63.3 [facility] Comment on above: Order Comment: Speci men Type: BLOOD SPECIMENOrdering Facility: [facility] Address: [address] [place] [address] Result Comment: ACTH Reference Range: 7-10 am: 7.2 - 63.3 pg/mL Performed By: #### 2 141-0 ####[facility]IA [id number] [place] [address] [place] BIOAVAIL TESTO/SHBG, FEM AN D CHILDon 12-05-2023 SEX HORMONE BIND GLB 56 nmol/L Normal 25-122 [facility] Comment on above: Order Comment: Speci men Type: BLOOD SPECIMENOrdering Facility: [facility] Address: [address] [place] [address] Result Comment: REFE RENCE INTERVAL: Sex Hormone Binding Globulin Access complete set of age- and/or gender-specific reference intervals for this test in the [employer] [facility] Test Directory ([employer]). Performed By: #### B TSTFC, HPROG ####[facility] LABORATORIESCLIA [id number] [place] [address] TESTO BIOAVAILABLE 19.4 ng/dL Normal 2.2-20.6 [facility] Comment on above: Order Comment: Speci men Type: BLOOD SPECIMENOrdering Facility: [facility] Address: [address] [place] [address] Result Comment: REFE RENCE INTERVAL: Testosterone, Bioavailable by Nurse Practical Females: Postmenopausal: 1.5 - 9.4 ng/dL INTERPRETIVE INFORMATION: Testosterone, Bioavailable by Nurse Practical Bioavailable testosterone concentration is calculated using total testosterone (measured by mass spectrometry) and the binding constant of testosterone and sex hormone-binding globulin (SHBG) and/or albumin. For individuals on testosterone-suppressing hormone therapies (e.g., antiandrogens or estrogens), refer to cisgender female reference intervals. For a complete set of all established reference intervals, refer to [employer]/Tests/Pub/2514753. Performed By: #### B TSTFC, HPROG ####[facility] [id number] [place] [address] Testosterone [Mass/Vol] 63 ng/dL High 9-55 [facility] Comment on above: Order Comment: Speci men Type: BLOOD SPECIMENOrdering Facility: [facility] Address: [address] [place] [address] Result Comment: REFE RENCE INTERVAL: Testosterone by Nurse Practical Females Premenopausal 9-55 ng/dL Postmenopausal 5-32 ng/dL INTERPRETIVE INFORMATION: Testosterone by Nurse Practical Free or bioavailable testosterone measurements may provide supportive information. For individuals on testosterone-suppressing hormone therapies (e.g., antiandrogens or estrogens), refer to cisgender female reference intervals. For a complete set of all established reference intervals, refer to [employer]/Tests/Pub/2390236. This test was developed and its performance characteristics determined by [facility]. It has not been cleared or approved by the US Food and Drug Administration. This test was performed in a CLIA certified laboratory and is intended for clinical purposes. Performed By: #### B TSTFC, HPROG ####[facility]IA [id number] [place] [address] TESTOSTERONE FREE 8.0 pg/mL High 0.8-7.4 [facility] Comment on above: Order Comment: Speci men Type: BLOOD SPECIMENOrdering Facility: [facility] Address: [address] [place] [address] Result Comment: REFE RENCE INTERVAL: Testosterone, Free by Nurse Practical Females Postmenopausal: 0.6 - 3.8 pg/mL INTERPRETIVE INFORMATION: Testosterone, Free by Nurse Practical Free testosterone concentration is calculated using total testosterone (measured by mass spectrometry) and the binding constant of testosterone and sex hormone-binding globulin (SHBG). For individuals on testosterone-suppressing hormone therapies (e.g., antiandrogens or estrogens), refer to cisgender female reference intervals. For a complete set of all established reference intervals, refer to ltd[employer]/Tests/Pub/3180832. This test was developed and its performance characteristics determined by [facility]. It has not been cleared or approved by the US Food and Drug Administration. This test was performed in a CLIA certified laboratory and is intended for clinical purposes. Performed By: [facility] [address] [place] [address] Pensionholder Information Clerk: Mallika Thao MD, PhD CLIA Number: [id number] Performed By: #### B TSTFC, HPROG ####[facility] LABORATORIESCLIA [id number] [place] [address] Cortson Nava 12-05-19 Cortisol [Mass/Vol] 13.6 ug/dL Normal 4.8-19.[address] [facility] Comment on above: Order Comment: Speci men Type: BLOOD SPECIMENOrdering Facility: [facility] Address: [address] [place] [address] Result Comment: Prov ided reference range is from 6-10 AM sample collection time. Cortisol Reference Range: 6-10 AM = 4.8-19.5 ug/dL, 4-8 PM = 2.5-11.9 ug/dL Performed By: #### 3 016-3, 2143-6, 3024-7, 2842-3 ####[facility] LABCLIA [id number] [place] [address] [place] DHEA-S BLDon 12-05-2023 DHEA-S [Mass/Vol] 72.8 ug/dL Low 98.8-340.0 [facility] Comment on above: Order Comment: Speci men Type: BLOOD SPECIMENOrdering Facility: [facility] Address: [address] [place] [address] Result Comment: Refe rence ranges are age and gender specific. For additional information, reference range tables can be found in the laboratory test directory. The normal values are based on the following source: Dehydroepiandrosterone sulfate (DHEA S) [package insert V 17.0 [place]ian]. [employer], [place], [place]: September 2012. Performed By: #### 9 5941-1 #### [facility] CLIA [id number] [address] [place] [address] [place] Estradiol SerPl-mCncon 12-04 E2 [Mass/Vol] 66 pg/mL Normal [facility] Comment on above: Order Comment: Speci men Type: BLOOD SPECIMENOrdering Facility: [facility] Address: [address] [place] [address] Result Comment: This test is not suitable [...] 3243 pg/mL Second trimester : 1561 to 20724 pg/mL Third trimester : 8285 to >70453 pg/mL Post-menopausal Estradiol reference range: < 41 pg/mL Reference: 1. Estradiol - E2 (Estradiol III) [package insert V 3.0 [place]ian]. [employer], [place], [place], July 2015. Performed By: #### 9 5941-1 #### [facility] CLIA [id number] [address] [place] [address] [place] FSH SerPl-aCncon 12-05-2023 Follitropin Qn 4.2 m[IU]/mL Normal See comment [facility] Comment on above: Order Comment: Speci men Type: BLOOD SPECIMENOrdering Facility: [facility] Address: [address] [place] [address] Result Comment: Refe rence range: Follicular: 3.5-12.5 mIU/mL Ovulation: 4.7-21.5 mIU/mL Luteal: 1.7-7.7 mIU/mL Postmenopausal: 25.8-134.8 mIU/mL Performed By: #### 9 5941-1 #### [facility] CLIA [id number] [address] [place], [place] [address] [id number] [place] [address] OF [facility] HYDROXYPROGESTERONE-17on 17-HYDROXYPROGESTERONE QUANTITATIVE BY HPLC-MS/MS, SERUM OR PLASMA 48.26 ng/dL Normal <=206.00 [facility] Comment on above: Order Comment: Speci men Type: BLOOD SPECIMENOrdering Facility: [facility] Address: [address] [place] [address] Result Comment: INTERPRETIVE INFORMATION for 17-Hydroxyprogesterone in females: Follicular 15 to 70 ng/dL Luteal 35 to 290 ng/dL REFERENCE INTERVAL: 17-Hydroxyprogesterone Qnt, HPLC-MS/MS Access complete set of age- and/or gender-specific reference intervals for this test in the [employer] Laboratory Test Directory ([employer]). This test was developed and its performance characteristics determined by [facility]. It has not been cleared or approved by the US Food and Drug Administration. This test was performed in a CLIA certified laboratory and is intended for clinical purposes. Performed By: [facility] [address] [place] [address] Pensionholder Information Clerk: Mallika Thao MD, PhD CLIA Number: [id number] Performed By: #### B TSTFC, HPROG ####[facility]ITAL[facility] [id number] [place] [address] HbA1c (Bld)on 12-05-2023 Average glucose Estimated from glycated hemoglobin (Bld) [Mass/Vol] 117 mg/dL Normal [facility] Comment on above: Order Comment: Speci men Type: BLOOD SPECIMENOrdering Facility: [facility] Address: [address] [place] [address] Result Comment: eAG: (Estimated average glucose) is a calculated value from HgbA1c and is business banking representative of the average blood glucose level in the last 2-3 month period. Performed By: #### 5 5454-3 ####[facility] LABIA [id number] [place] [address] [place] HbA1c (Bld) [Mass fraction] 5.7 % High 4.3-5.6 [facility] Comment on above: Order Comment: Speci men Type: BLOOD SPECIMENOrdering Facility: [facility] Address: [address] [place] [address] Result Comment: Amer [place] Diabetes Association guidelines indicate that patients with HgbA1c in the range 5.7-6.4% are at increased risk for development of diabetes, and intervention by lifestyle modification may be beneficial. HgbA1c greater or equal to 6.5% is considered diagnostic of diabetes. Performed By: #### 5 5454-3 ####[facility] LABIA [id number] [place] [address] [place] Insulin SerPl-aCncon 024 Insulin Qn 97.9 u[IU]/mL High 3.0-25.0 [facility] Comment on above: Order Comment: Speci men Type: BLOOD SPECIMENOrdering Facility: [facility] Address: [address] [place] [address] Performed By: #### 2 0448-7 ####[facility]IA [id number] [place] [address] [place] LH SerPl-aCncon 12-05-2023 Lutropin Qn 6.7 m[IU]/mL Normal See comment [facility] Comment on above: Order Comment: Speci men Type: BLOOD SPECIMENOrdering Facility: [facility] Address: [address] [place] [address] Result Comment: Refe rence range: Follicular: 2.4-12.6 mIU/mL Midcycle: 14.0-95.6 mIU/mL Luteal: 1.0-11.4 mIU/mL Post Rand: 7.7-58.5 mIU/mL Performed By: #### 9 5941-1 #### [facility] CLIA [id number] [address] [place] [address] [place], Bld SerPl-sCncon [place] [Moles/Vol] 0.6 mmol/L Normal 0.6-1.[address] [facility] Comment on above: Order Comment: Speci men Type: BLOOD SPECIMENOrdering Facility: [facility] Address: [address] [place] [address] Result Comment: Refe rence ranges and high/low indicator flags are provided as general guidelines only. The treating physician must determine appropriate target levels/dosing based on the specific clinical situation. Performed By: #### 1 4334-7 ####[facility] LABCLIA [id number] [place] [address] [place] Prolactin SerPl-mCncon 12-04 Prolactin [Mass/Vol] 15.2 ng/mL Normal 4.4-33.8 [facility] Comment on above: Order Comment: Speci men Type: BLOOD SPECIMENOrdering Facility: [facility] Address: [address] [place] [address] Result Comment: Prol actin test is performed using the [employer] Electrochemiluminescence Immunoassay method. Results obtained with different methods or kits cannot be used interchangeably. Performed By: #### 9 5941-1 #### [facility] CLIA [id number] [address] [place] [address] [place] Renal function 2000 panelon 12-05-2023 Albumin [Mass/Vol] 4.0 g/dL Normal 3.9-4.9 [facility] Comment on above: Order Comment: Speci men Type: BLOOD SPECIMENOrdering Facility: [facility] Address: [address] [place] [address] Performed By: #### 2 4362-6 ####[facility] [id number] [place] [address] [place] Anion gap [Moles/Vol] 7 mmol/L Low 8-15 [facility] Comment on above: Order Comment: Speci men Type: BLOOD SPECIMENOrdering Facility: [facility] Address: [address] [place] [address] Performed By: #### 2 4362-6 ####[facility] MILLTOWNCLIA [id number] [place] [address] [place] Calcium [Mass/Vol] 9.3 mg/dL Normal 8.5-10.2 [facility] Comment on above: Order Comment: Speci men Type: BLOOD SPECIMENOrdering Facility: [facility] Address: [address] [place] [address] Performed By: #### 2 4362-6 ####[facility] MILLTOWELMERLIA [id number] [place] [address] [place] Chloride [Moles/Vol] 109 mmol/L High 98-107 [facility] Comment on above: Order Comment: Speci men Type: BLOOD SPECIMENOrdering Facility: [facility] Address: [address] [place] [address] Performed By: #### 2 4362-6 ####[facility] MILLNERIWELMERLIA [id number] [place] [address] [place] CO2 [Moles/Vol] 23 mmol/L Normal 22-30 [facility] Comment on above: Order Comment: Speci men Type: BLOOD SPECIMENOrdering Facility: [facility] Address: [address] [place] [address] Performed By: #### 2 4362-6 ####[facility] MILLTOWNCLIA [id number] [place] [address] [place] Creatinine [Mass/Vol] 0.62 mg/dL Normal 0.58-0.96 [facility] Comment on above: Order Comment: Speci men Type: BLOOD SPECIMENOrdering Facility: [facility] Address: [address] [place] [address] Performed By: #### 2 4362-6 ####[facility] [id number] [place] [address] [place] Creatinine and Glomerular filtration rate.predicted panel (S/P/Bld) 125 mL/min/1.73m??? Normal >=60 [facility] Comment on above: Order Comment: Speci men Type: BLOOD SPECIMENOrdering Facility: [facility] Address: [address] [place] [address] Result Comment: Tawana mated Glomerular Filtration Rate [...] actual GFR. Performed By: #### 2 4362-6 ####[facility] [id number] [place] [address] [place] Glucose [Mass/Vol] 110 mg/dL High 74-99 [facility] Comment on above: Order Comment: Speci men Type: BLOOD SPECIMENOrdering Facility: [facility] Address: [address] [place] [address] Result Comment: The [place] Diabetes Association (ADA) provides guidance for cutoff [...] Standards of Medical Care in Diabetes 2016, [place] [employer] Association. Diabetes Care. 2016.39(Suppl 1). Performed By: #### 2 4362-6 ####[facility]ERNCLIMer [id number] [place] [address] [place] Phosphate [Mass/Vol] 3.5 mg/dL Normal 2.7-4.8 [facility] Comment on above: Order Comment: Speci men Type: BLOOD SPECIMENOrdering Facility: [facility] Address: [address] [place] [address] Performed By: #### 2 4362-6 ####[facility] [facility] [id number] [place] [address] [place] Potassium [Moles/Vol] 4.4 mmol/L Normal 3.7-5.1 [facility] Comment on above: Order Comment: Speci men Type: BLOOD SPECIMENOrdering Facility: [facility] Address: [address] [place] [address] Performed By: #### 2 4362-6 ####[facility] [id number] [place] [address] [place] Sodium [Moles/Vol] 139 mmol/L Normal 136-144 [facility] Comment on above: Order Comment: Speci men Type: BLOOD SPECIMENOrdering Facility: [facility] Address: [address] [place] [address] Performed By: #### 2 4362-6 ####[facility] [id number] [place] [address] [place] Urea nitrogen [Mass/Vol] 16 mg/dL Normal 7-21 [facility] Comment on above: Order Comment: Speci men Type: BLOOD SPECIMENOrdering Facility: [facility] Address: [facility] [place] [address] Performed By: #### 2 4362-6 ####[facility] [id number] [place] [address] [place] T4 Free SerPl-mCncon 024 Free T4 [Mass/Vol] 1.3 ng/dL Normal 0.9-1.7 [facility] Comment on above: Order Comment: Speci men Type: BLOOD SPECIMENOrdering Facility: [facility] Address: [address] [place] [address] Performed By: #### 9 5941-1 #### [facility] CLIA [id number] [address] [place] [address] [place] TSH SerPl-aCncon 12-05-2023 TSH Qn 2.940 m[IU]/L Normal 0.270-4.200 [facility] Comment on above: Order Comment: Speci men Type: BLOOD SPECIMENOrdering Facility: [facility] Address: [address] [place] [address] Result Comment: If t he patient is , TSH reference range varies by gestational period: First Trimester (weeks 9-12): 0.180-2.990 mIU/L Second Trimester: 0.110-3.980 mIU/L Third Trimester: 0.480-4.710 mIU/L Polo Crystal et al. A Practical Approach for the Verifications and Determination of Site- and Trimester-Specific Reference Intervals for Thyroid Function tests in . Thyroid, 2019:29:3:412-420. Darren E, et al. 2017 Guidelines of the [place] [employer] for the Diagnosis and Management of Thyroid Disease during and the . Thyroid, 2017:27:3:315-389. Performed By: #### 9 5941-1 #### [facility] CLIA [id number] [address] [place] [address] [place] Wound Ctr History AND Physic harriet 12-05-2023 Wound Ctr History & Physical Normal [facility] Basic Metabolic Profile (BMP )on 11-27-2023 BUN/CRE 26.1 RATIO High 10-20 [facility] Comment on above: Performed By: #### L 501.9060, L500.2500, L300.8000 ####[facility] [address] [place], [address] CA,Total 8.9 mg/dL Normal 8.5-10.1 [facility] Comment on above: Performed By: #### L 501.9060, L500.2500, L300.8000 ####[facility] [address] [place], [address] Chloride [Moles/Vol] 110 mmol/L High 98-107 [facility] Comment on above: Performed By: #### L 501.9060, L500.2500, L300.8000 ####[facility] [address] [place], [address] CO2 [Moles/Vol] 23.0 mmol/L Normal 21.0-32.0 [facility] Comment on above: Performed By: #### L 501.9060, L500.2500, L300.8000 ####[facility] [address] [place], [address] Creatinine [Mass/Vol] 0.61 mg/dL Normal 0.55-1.02 [facility] Comment on above: Result Comment: The validity of the calculated GFR GFRAA in patients over70 years has not been determined. Clinical correlation isessential. Performed By: #### L 501.9060, L500.2500, L300.8000 ####[facility] [address] [place], [address] ECRCL 198.44 ml/min Normal [facility] Comment on above: Performed By: #### L 501.9060, L500.2500, L300.8000 ####[facility] [address] [place], [address] EST GFR - AA 150 mL/min Normal >60 [facility] Comment on above: Result Comment: Afri can [place] [facility] GFR Calc Performed By: #### L 501.9060, L500.2500, L300.8000 ####[facility] [address] [place], [address] GAP 4 Low 5-15 [facility] Comment on above: Performed By: #### L 501.9060, L500.2500, L300.8000 ####[facility] [address] [place], [address] GFR/1.73 sq M.predicted among non-blacks MDRD (S/P/Bld) [Vol rate/Area] 124 mL/min/{1.73_m2} Normal >60 [facility] Comment on above: Result Comment: Non- GFR Calc Performed By: #### L 501.9060, L500.2500, L300.8000 ####[facility] [address] [place], [address] Glucose [Mass/Vol] 116 mg/dL High 74-106 [facility] Comment on above: Result Comment: Fast ing Glucose result from 100 to 125 mg/dLsuggests IMPAIRED HOMEOSTASIS per A.D.A. criteria. Performed By: #### L 501.9060, L500.2500, L300.8000 ####[facility] [address] [place], [address] Potassium [Moles/Vol] 5.1 mmol/L Normal 3.5-5.1 [facility] Comment on above: Performed By: #### L 501.9060, L500.2500, L300.8000 ####[facility] [address] [place], [address] Sodium [Moles/Vol] 138 mmol/L Normal 136-145 [facility] Comment on above: Performed By: #### L 501.9060, L500.2500, L300.8000 ####[facility] [address] [place], [address] Urea nitrogen [Mass/Vol] 16 mg/dL Normal 7-18 [facility] Comment on above: Performed By: #### L 501.9060, L500.2500, L300.8000 ####[facility] [address] [place], [address] CNOVon 11-27-2023 CNOV Office Visit (UCWSTR ) -------- MARION GUTIERREZ ([id number]) 1995 F Date Time Provider Department 11/27/23 7:45 PM [facility] During your visit today, we recorded the following information about you: Louis Schmidt APRN.W[employer] TECHNICAL OFFICER 11/27/2023 7:55 PM Signed Patient came with [...] Status:Closed by [facility] on 11/27/23 Normal [facility] D-Dimer Quantitative (DVT/PE )on 11-27-2023 D-DIMER QUANT 0.27 FEU/ug/m Normal 0.27-0.49 [facility] Comment on above: Result Comment: NORM AL D-Dimer level (<0.50) indicates no DVT or PE. Performed By: #### L 501.9060, L500.2500, L300.8000 ####[facility] [address] [place], [place], [id number] Emergency Department Summary on 11-27-2023 Emergency Department Summary Normal [facility] Lithiumon 11-27-2023 LI 0.40 mmol/L Low 0.60-1.20 [facility] Comment on above: Result Comment: Mode rate Hemolysis, Result may be falsely increased. Performed By: #### L 501.9060, L500.2500, L300.8000 ####[facility] [address] [place], [place], [address] Venous Duplex US, Unilateral on 11-21-2023 Venous Duplex US, Unilateral Normal [facility] CNOVon 10-26-2023 CNOV Office Visit (ENWSTR ) -------- MARION GUTIERREZ ([id number]) 1995 F Date Time Provider Department 10/26/23 3:00 PM JEY JOHNSON During your visit today, we recorded the following information about you: Temperature Pulse Weight Height 97.9 degrees 61/minute 127.2 kg 1.702 m Last Period 02/19/23 Jey Johnson MD 10/26/2023 6:35 PM Signed Endocrinology and Metabolism [facility] Visit Note REASON FOR CONSULT: [...] suicidal Suici (more content not 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 Normal [facility] Glucoseon 2023 FINGERSTICK GLU 90 mg/dL Normal 74-106 [facility] Comment on above: Result Comment: KENNY CASILLAS OF PATIENT CARE PER NURSING PROTOCOL Performed By: #### L 501.080 ####[facility] [address] [place], [address] Colonoscopy Reporton 024 Colonoscopy Report Normal [facility] M7400.3302on 2023 M7400.3302 [facility] Comment on above: Performed By: #### M 600.5000, M7400.3302, L7000.0700 ####[facility] [address] [place], [address] MR/POSTOP.ANEon 2023 MR/POSTOP.ANE [facility] MR/ZQHZASLK9ys 2023 MR/POSTOPAN2 [facility] Ova and Parasites 8623on OP [facility] Comment on above: Performed By: #### M 600.5000, M7400.3302, L7000.0700 ####[facility] [address] [place], [address] ,Urineon 2023 Beta HCG ( test) Ql (U) Normal [facility] Comment on above: Result Comment: Canc elled via OM: Pt refuses the test Performed By: #### L 400.7600 ####[facility] [address] [place], [address] INTERNAL QC OK? Normal [facility] Comment on above: Result Comment: Canc elled via OM: Pt refuses the test Performed By: #### L 400.7600 ####[facility] [address] [place], [address] RECORD KIT LOT# Normal [facility] Comment on above: Result Comment: Canc elled via OM: Pt refuses the test Performed By: #### L 400.7600 ####[facility] [address] [place], [address] Surgery Specimen Level Kev 2023 Surgery Specimen Level IV Normal [facility] Comment on above: Performed By: #### P SUIV ####[facility] [address] [place], [address] Cardiology Visit Reporton Cardiology Visit Report Normal [facility] Catecholamines, Plasmaon DOPAMINE TNP Normal . [facility] Comment on above: Order Comment: Test( s) 511459-Ccglmunipxj; 928647-Xzkld Activity, Plasmawas developed and its performance characteristicsdetermined by [facility]. It has not been cleared or approvedby the Food and Drug Administration. Result Comment: Test not performed Performed By: #### L 3300.1800, L3430.0100, L3300.1050 ####[facility] [address] [place], [address] EPINEPHRINE TNP Normal . [facility] Comment on above: Order Comment: Test( s) 880337-Pycwocjqpet; 937329-Ttesl Activity, Plasmawas developed and its performance characteristicsdetermined by [facility]. It has not been cleared or approvedby the Food and Drug Administration. Result Comment: Test not performed Performed By: #### L 3300.1800, L3430.0100, L3300.1050 ####[facility] [address] [place], [address] NOREPINEPHRINE TNP Normal . [facility] Comment on above: Order Comment: Test( s) 774872-Hmzhefzklgg; 696931-Jjfkq Activity, Plasmawas developed and its performance characteristicsdetermined by [facility]. It has not been cleared or approvedby the Food and Drug Administration. Result Comment: Test not performed. Insufficient specimen to perform orcomplete analysis.CONTACTED VANI AT YOUR FACILITY ON 10-12-2023 Performed By: #### L 3300.1800, L3430.0100, L3300.1050 ####[facility] [address] [place], [address] Gastrin, Serumon 10-19-2023 GASTRIN 134 pg/mL High 0-115 [facility] Comment on above: Order Comment: Test( s) 879726-Pvynxertmqn; 225720-Tazeu Activity, Plasmawas developed and its performance characteristicsdetermined by [facility]. It has not been cleared or approvedby the Food and Drug Administration. Result Comment: Siem [facility] Immulite 2000 Immunochemiluminometric assay (ICMA)Values obtained with different assay methods or kits cannotbe used interchangeably. Results cannot be interpreted asabsolute evidence of the presence or absence of malignantdisease. Performed By: #### L 3300.1800, L3430.0100, L3300.1050 ####[facility] [address] [place], [address] Renin/Aldosterone Activityon 10-19-2023 ALD/RENIN RATIO 7.0 Normal 0.0-30.0 [facility] Comment on above: Order Comment: Test( s) 341990-Efkwiardswt; 359378-Lwcsy Activity, Plasmawas developed and its performance characteristicsdetermined by [facility]. It has not been cleared or approvedby the Food and Drug Administration. Result Comment: Unit s: ng/dL per ng/mL/hr Performed By: #### L 3300.1800, L3430.0100, L3300.1050 ####[facility] [address] [place], [address] ALDOSTERONE,S 41.2 ng/dL High 0.0-30.0 [facility] Comment on above: Order Comment: Test( s) 343009-Rcuuxhzdrtq; 613863-Lzzic Activity, Plasmawas developed and its performance characteristicsdetermined by [facility]. It has not been cleared or approvedby the Food and Drug Administration. Performed By: #### L 3300.1800, L3430.0100, L3300.1050 ####[facility] [address] [place], [address] RENIN, PLASMA 5.892 ng/mL/hr High 0.167-5.380 [facility] Comment on above: Order Comment: Test( s) 894294-Pjxehlmthly; 367358-Kjemu Activity, Plasmawas developed and its performance characteristicsdetermined by [employer]. It has not been cleared or approvedby the Food and Drug Administration. Performed By: #### L 3300.1800, L3430.0100, L3300.1050 ####[facility] [address] [place], [address] Information Support Project Manager Office Visit Reporton 10-17-2023 Information Support Project Manager Office Visit Report Normal [facility] Calprotectin, Stoolon [address] 70 ug/g Normal 0-120 [facility] Comment on above: Result Comment: Conc entration Interpretation Follow-Up< 5 - 50 ug/g Normal None>50 -120 ug/g Borderline Re-evaluate in 4-6 weeks >120 ug/g Abnormal Repeat as clinically indicatedPerformed at: [address] [id number] Director: Harsh Harris MD, Phone: [phone] Performed By: #### M 600.5000, M7400.3302, L7000.0700 ####[facility] [address] [place], [address] Adrenocorticotropic Hormoneo n 10-15-2023 ACTH TNP Normal . [facility] Comment on above: Order Comment: N Result Comment: Test not performed. Test cancelled by Healthcare providerafter order was submitted to [facility].PATIENT WILL BE RECOLLECTEDCONTACTED ANA AT YOUR FACILITY ON 74-53-5416WVHY reference interval for samples collected between 7 and10 AM. Performed By: #### M 100.0605, L3300.1000, M100.6796, L3430.0100, M100.637 ####[facility] [address] [place], [address] Catecholamines, Plasmaon DOPAMINE TNP Normal . [facility] Comment on above: Order Comment: N Result Comment: Test not performed Performed By: #### M 100.0605, L3300.1000, M100.6796, L3430.0100, M100.637 ####[facility] [address] [place], [address] EPINEPHRINE TNP Normal . [facility] Comment on above: Order Comment: N Result Comment: Test not performed Performed By: #### M 100.0605, L3300.1000, M100.6796, L3430.0100, M100.637 ####[facility] [address] [place], [address] NOREPINEPHRINE TNP Normal . [facility] Comment on above: Order Comment: N Result Comment: Test not performed. Test cancelled by Healthcare providerafter order was submitted to [facility].PATIENT WILL BE RECOLLECTEDCONTACTED ANA AT YOUR FACILITY ON 10-15-2023 Performed By: #### M 100.0605, L3300.1000, M100.6796, L3430.0100, M100.637 ####[facility] [address] [place], [address] CDIFF (PCR)on 10-12-2023 CDIFF Pending 027 027 NAP1-B1 Presumptive Negative *for epidemiolologic???use C. Diff PCR Negative- No toxigenic C. Diff Detected Normal [facility] Comment on above: Performed By: #### M 100.0605, L3300.1000, M100.6796, L3430.0100, M100.637 ####[facility] [address] [place], [address] ENTERIC PATHOGEN PANEL STOOL on 10-12-2023 EP PANEL Normal [facility] Comment on above: Performed By: #### M 100.0605, L3300.1000, M100.6796, L3430.0100, M100.637 ####[facility] [address] [place], [address] Stool Lactoferrin/WBCon 09-20 WBCST Normal Reference Ran ge = Negative Fecal WBC Lactoferrin Negative: No Fecal WBC Lactoferrin present Normal [facility] Comment on above: Performed By: #### M 100.0605, L3300.1000, M100.6796, L3430.0100, M100.637 ####[facility] [address] [place], [address] Insulin Levelon 10-11-2023 INSULIN,FASTING 70.5 uIU/mL High 2.6-24.9 [facility] Comment on above: Order Comment: Test( s) 948220-Ggmojmolamz; 515559-Intgu Activity, Plasmawas developed and its performance characteristicsdetermined by [facility]. It has not been cleared or approvedby the Food and Drug Administration.N Performed By: #### L 3300.3500, L801.1541, L3100.4810, L3400.1300 ####[facility] [address] [place], [address] L3100.4810on 10-11-2023 Chromogranin A 186.2 ng/mL Abnormal 0.0-101.8 [facility] Comment on above: Order Comment: Test( s) 028280-Vmcjmzgpmqg; 148208-Xojzr Activity, Plasmawas developed and its performance characteristicsdetermined by [facility]. It has not been cleared or approvedby the Food and Drug Administration.N Result Comment: Terra [place]ta Roofer ankushranin A performed by Nephera/Eveo KRYPTORmethodologyValues obtained with different assay methods or kits cannotbe used interchangeably. Performed By: #### L 3300.3500, L801.1541, L3100.4810, L3400.1300 ####[facility] [address] [place], [address] Somatomedin Con 10-11-2023 SOMATOMEDIN C 102 ng/mL Normal 91-308 [facility] Comment on above: Order Comment: Test( s) 354446-Npobxckbtdi; 286965-Wwkir Activity, Plasmawas developed and its performance characteristicsdetermined by [facility]. It has not been cleared or approvedby the Food and Drug Administration.N Performed By: #### L 3300.3500, L801.1541, L3100.4810, L3400.1300 ####[facility] [address] [place], [address] Gastrin, Serumon 10-10-2023 GASTRIN 95 pg/mL Normal 0-115 [facility] Comment on above: Order Comment: DR. Shabnam HA FORV FOOT Result Comment: Siem [facility] Immulite 2000 Immunochemiluminometric assay (ICMA)Values obtained with different assay methods or kits cannotbe used interchangeably. Results cannot be interpreted asabsolute evidence of the presence or absence of malignantdisease.Performed at: [address] [id number] Director: Harsh Harris MD, Phone: [phone] Performed By: #### L 3300.1800 ####[facility] [address] [place], [address] Gastroenterology Visit Repor ton 10-10-2023 Gastroenterology Visit Report Normal [facility] Miscellaneous Lab Procedureo n 10-09-2023 MISC LAB TEST Normal [facility] Comment on above: Order Comment: [facility] BLOODCORT[facility]OL [id number] Result Comment: TEST RESULTS LIMITS Cortisol 8.8 ug/dL 6.2-19.4 Please Note: The reference interval and flagging for this test is for an AM collection. If this is a PM collection please use: Cortisol PM: 2.3-11.9 ___ TESTING PERFORMED AT [facility]. ORIGINAL REPORT ON FILE IN LAB CONTAINS ADDITIONAL TEST SITE INFORMATION. Performed By: #### L 3300.3500, L801.1541, L3100.4810, L3400.1300 ####[facility] [address] [place], [address] Surgery Visit Reporton 10-02 Surgery Visit Report Normal [facility] Abdomen/Pelvis W IV Cont ONL Yon 09-24-2023 Abdomen/Pelvis W IV Cont ONLY Normal [facility] CBC W/Diff, Automatedon 08 PLT EST ADEQUATE Normal ADEQ [facility] Comment on above: Performed By: #### L 100.0100, L501.2450, L500.4050 ####[facility] [address] [place], [address] 12 Lead EKGon 09-23-2023 12 Lead EKG Normal [facility] CORTISOL SERUMon 09-23-2023 CORTISOL 6.60 ug/dL Normal 3.44-22.45 [facility] Comment on above: Order Comment: erasmo tiwari Result Comment: Adul t (AM) 5.27 - 22.45 ug/dL Adult (PM) 3.44 - 16.76 ug/dLPlease note revised CORTISOL reference range ctlnacnuj71/25/2020. Performed By: #### L 509.6000 ####[facility] [address] [place], [address] Comprehensive Metabolic Prof ilon 09-23-2023 Albumin [Mass/Vol] 3.2 g/dL Normal 3.2-5.0 [facility] Comment on above: Performed By: #### L 100.0100, L501.2450, L500.4050 ####[facility] [address] [place], [address] Albumin/Globulin [Mass ratio] 0.8 {ratio} Low 0.9-2.4 [facility] Comment on above: Performed By: #### L 100.0100, L501.2450, L500.4050 ####[facility] [address] [place], [address] ALK P 71 U/L Normal 45-117 [facility] Comment on above: Performed By: #### L 100.0100, L501.2450, L500.4050 ####[facility] [address] [place], [address] ALT [Catalytic activity/Vol] 59 U/L High 13-56 [facility] Comment on above: Performed By: #### L 100.0100, L501.2450, L500.4050 ####[facility] [address] [place], [address] AST [Catalytic activity/Vol] 36 U/L Normal 15-37 [facility] Comment on above: Result Comment: Mode rate Hemolysis, Result may be falsely increased. Performed By: #### L 100.0100, L501.2450, L500.4050 ####[facility] [address] [place], [address] Bilirubin [Mass/Vol] 0.40 mg/dL Normal 0.20-1.00 [facility] Comment on above: Result Comment: For patients on eltrombopag therapy, use of Dimension [place] TBIL is not recommended. Performed By: #### L 100.0100, L501.2450, L500.4050 ####[facility] [address] [place], [address] BUN/CRE 19.2 RATIO Normal 10-20 [facility] Comment on above: Performed By: #### L 100.0100, L501.2450, L500.4050 ####[facility] [address] [place], [address] CA,Total 9.4 mg/dL Normal 8.5-10.1 [facility] Comment on above: Performed By: #### L 100.0100, L501.2450, L500.4050 ####[facility] [address] [place], [address] Chloride [Moles/Vol] 109 mmol/L High 98-107 [facility] Comment on above: Performed By: #### L 100.0100, L501.2450, L500.4050 ####[facility] [address] [place], [address] CO2 [Moles/Vol] 24.0 mmol/L Normal 21.0-32.0 [facility] Comment on above: Performed By: #### L 100.0100, L501.2450, L500.4050 ####[facility] [address] [place], [address] Creatinine [Mass/Vol] 0.68 mg/dL Normal 0.55-1.02 [facility] Comment on above: Result Comment: The validity of the calculated GFR GFRAA in patients over70 years has not been determined. Clinical correlation isessential. Performed By: #### L 100.0100, L501.2450, L500.4050 ####[facility] [address] [place], [address] ECRCL 176.74 ml/min Normal [facility] Comment on above: Performed By: #### L 100.0100, L501.2450, L500.4050 ####[facility] [address] [place], [address] EST GFR - AA 135 mL/min Normal >60 [facility] Comment on above: Result Comment: Afri can [facility] GFR Calc Performed By: #### L 100.0100, L501.2450, L500.4050 ####[facility] [address] [place], [address] GAP 5 Normal 5-15 [facility] Comment on above: Performed By: #### L 100.0100, L501.2450, L500.4050 ####[facility] [address] [place], [address] GFR/1.73 sq M.predicted among non-blacks MDRD (S/P/Bld) [Vol rate/Area] 111 mL/min/{1.73_m2} Normal >60 [facility] Comment on above: Result Comment: Non- GFR Calc Performed By: #### L 100.0100, L501.2450, L500.4050 ####[facility] [address] [place], [address] Globulin (S) [Mass/Vol] 3.8 g/dL Normal 2.2-4.2 [facility] Comment on above: Performed By: #### L 100.0100, L501.2450, L500.4050 ####[facility] [address] [place], [address] Glucose [Mass/Vol] 105 mg/dL Normal 74-106 [facility] Comment on above: Result Comment: Fast ing Glucose result from 100 to 125 mg/dLsuggests IMPAIRED HOMEOSTASIS per A.D.A. criteria. Performed By: #### L 100.0100, L501.2450, L500.4050 ####[facility] [address] [place], [address] Potassium [Moles/Vol] 5.4 mmol/L High 3.5-5.1 [facility] Comment on above: Result Comment: Mode rate Hemolysis, Result may be falsely increased. Performed By: #### L 100.0100, L501.2450, L500.4050 ####[facility] [address] [place], [address] Sodium [Moles/Vol] 138 mmol/L Normal 136-145 [facility] Comment on above: Performed By: #### L 100.0100, L501.2450, L500.4050 ####[facility] [id number] [place], [address] T PROT 7.0 g/dL Normal 6.4-8.2 [facility] Comment on above: Performed By: #### L 100.0100, L501.2450, L500.4050 ####[facility] [address] [place], [address] Urea nitrogen [Mass/Vol] 13 mg/dL Normal 7-18 [facility] Comment on above: Performed By: #### L 100.0100, L501.2450, L500.4050 ####[facility] [address] [place], [address] Emergency Department Summary on 09-23-2023 Emergency Department Summary Normal [facility] Lipaseon 09-23-2023 Lipase [Catalytic activity/Vol] 34 U/L Normal 13-75 [facility] Comment on above: Result Comment: Kyle kimble note:LIPASE revised reference range effective 22.New Lipase methodology. Expected to produce lower valuesthan the previous assay method.NEW Reference Range: 13 - 75 U/L Performed By: #### L 100.0100, L501.2450, L500.4050 ####[facility] [id number] [place], [address] Lithiumon 09-23-2023 LI 0.60 mmol/L Normal 0.60-1.20 [facility] Comment on above: Performed By: #### L 501.9060 ####[facility] [address] [place], [address] ,Serum,hCG Quali.on 09-23-2023 HCG, SERUM QUAL Negative Normal [facility] Comment on above: Performed By: #### L 700.6800 ####[facility] [address] [place], [address] Urinalysis, Completeon 09-22 BACTERIA 1+ /hpf Normal None Seen [facility] Comment on above: Order Comment: COLLE CTOR TO SPECIFY Performed By: #### L 400.0001 ####[facility] [address] [place], [address] WBC 0-5 SEEN Normal 0-5 [facility] Comment on above: Order Comment: COLLE CTOR TO SPECIFY Performed By: #### L 400.0001 ####[facility] [address] [place], [address] EPI,SQUAMOUS 0 SEEN Normal 5-10 [facility] Comment on above: Order Comment: COLLE CTOR TO SPECIFY Performed By: #### L 400.0001 ####[facility] [address] [place], [address] Mucus Ql (Urine sed) 0 SEEN Normal [facility] Comment on above: Order Comment: COLLE CTOR TO SPECIFY Performed By: #### L 400.0001 ####[facility] [address] [place], [address] RBC 0 SEEN Normal 0-5 [facility] Comment on above: Order Comment: COLLE CTOR TO SPECIFY Performed By: #### L 400.0001 ####[facility] [address] [place], [address] Absolute lymphocyte countOrd ered By: Presley Ibarra on 06-03-2023 Lymphocytes Auto (Unsp spec) [#/Vol] 3.04 10*3/uL 0.83-4.51 [facility] Automated lymphocyte count a s percentage of total leukocytesOrdered By: Presley Ibarra on 06-03-2023 Lymphocytes/100 WBC Auto (Unsp spec) 27.2 % 19-41 [facility] Basophil percentageOrdered B y: Presley Ibarra on 06-03-2023 Basophils/100 WBC (Bld) 0.5 % 0-1 [facility] Chloride [Moles/Vol] 108 mmol/L 98-107 [facility] Eosinophils/100 WBC (Bld) 1.5 % 0-5 [facility] Glucose [Mass/Vol] 99 mg/dL 74-106 [facility] Hemoglobin (Bld) [Mass/Vol] 12.9 g/dL 12.0-15.0 [facility] Monocytes/100 WBC (Bld) 8.1 % 0-10 [facility] Neutrophils (Bld) [#/Vol] 7.0 10*3/uL 2.0-7.7 [facility] Neutrophils/100 WBC (Bld) 62.4 % 47-70 [facility] Potassium [Moles/Vol] 3.9 mmol/L 3.5-5.1 [facility] Sodium [Moles/Vol] 140 mmol/L 136-145 [facility] WBC (Bld) [#/Vol] 11.2 10*3/uL 4.4-11.0 [facility] Determination of erythrocyte mean corpuscular volume (MCV)Ordered By: Presley Ibarra on 06-03-2023 MCV (RBC) [Entitic vol] 86.4 fL 81-99 [facility] Erythrocyte distribution wid th ratioOrdered By: Presley Ibarra on 06-03-2023 Erythrocyte distribution width (RBC) [Ratio] 14.1 % 11.6-14.6 [facility] Erythrocyte distribution wid th standard deviationOrdered By: Presley Ibarra on 06-03-2023 Erythrocyte distribution width (RBC) [Entitic vol] 44.7 fL 35.1-43.9 [facility] Hematocrit Auto (Bld) [Volum e fraction]Ordered By: Presley Ibarra on 06-03-2023 Hematocrit (Bld) [Volume fraction] 39.9 % 37-47 [facility] Immature granulocytes/100 WB C Auto (Bld)Ordered By: Presley Ibarra on 06-03-2023 Immature granulocytes/100 WBC (Bld) 0.300 % 0.0-0.9 [facility] Comment on above: IG% - Immature Granu locytes (promyelocytes, myelocytes and metamyelocytes) > 1% indicates that a LEFT SHIFT is Present. Laboratory - Chemistry and C hemistry - challengeOrdered By: Presley Ibarra on 06-03-2023 CO2 [Moles/Vol] 25.0 mmol/L 21.0-32.0 [facility] Urea nitrogen/Creatinine [Mass ratio] 17.4 mg/mg 10-20 [facility] Laboratory - Hematology and Cell countsOrdered By: Presley Ibarra on 06-03-2023 MCH (RBC) [Entitic mass] 27.9 pg 27.0-32.0 [facility] MCHC (RBC) [Mass/Vol] 32.3 g/dL 32-36 [facility] Nucleated RBC/100 WBC (Bld) [Ratio] 0 % 0-5 [facility] Platelet mean volume (Bld) [Entitic vol] 9.0 fL 6.2-12.0 [facility] Platelets (Bld) [#/Vol] 382 10*3/uL 150-450 [facility] No Panel InformationOrdered By: Presley Ibarra on 06-03-2023 D-Dimer Quantitative (PE/DVT) < 0.27 FEU/ug/m 0.27-0.49 [facility] Comment on above: NORMAL D-Dimer level (<0.50) indicates no DVT or PE. Estimated Creatinine Clearance Calc 162.22 ml/min [facility] Estimated GFR (MDRD) Amer 121 mL/min >60 [facility] Comment on above: GFR Calc Estimated GFR (MDRD) Non-Af Amer 100 mL/min >60 [facility] Comment on above: Non- GFR Calc Troponin I High Sensitivity 4 pg/mL 3.0-54.0 [facility] Comment on above: Please Note: New Renetta t Units and Gender Specific Reference Ranges. For more information see Policy Stat Procedure [place] High Sensitivity Troponin (TNIH) and attachments. RBC Auto (Bld) [#/Vol]Ordere d By: Presley Ibarra on 06-03-2023 RBC (Bld) [#/Vol] 4.62 10*6/uL 4.2-5.4 [facility] [place] or plasma calcium cherelle urement (mass/volume)Ordered By: Presley Ibarra on 06-03-2023 Calcium [Mass/Vol] 9.0 mg/dL 8.5-10.[address] [facility] Serum or plasma creatinine m easurement (mass/volume)Ordered By: Presley Ibarra on 06-03-2023 Creatinine [Mass/Vol] 0.74 mg/dL 0.55-1.02 [facility] Comment on above: The validity of the calculated GFR & GFRAA in patients over 70 years has not been determined. Clinical correlation is essential. Serum or plasma thyroid stim ulating hormone (TSH) measurement (units/volume)Ordered By: Presley Ibarra on 06-03-2023 TSH Qn 4.01 uIU/mL 0.358-3.74 [facility] Serum or plasma urea nitroge n measurement (mass/volume)Ordered By: Presley Ibarra on 06-03-2023 Urea nitrogen [Mass/Vol] 13 mg/dL 7-18 [facility] Thin prep Papanicolaou smear with manual screeningOrdered By: Presley Ibarra on 06-03-2023 Thin prep Papanicolaou smear with manual screening 7 5-15 [facility] Absolute lymphocyte countOrd ered By: Sarah Purdy on 05-08-2023 Lymphocytes Auto (Unsp spec) [#/Vol] 2.64 10*3/uL 0.83-4.51 [facility] Automated lymphocyte count a s percentage of total leukocytesOrdered By: Sarah Purdy on 05-08-2023 Lymphocytes/100 WBC Auto (Unsp spec) 23.6 % 19-41 [facility] Basophil percentageOrdered B y: Sarah Purdy on 05-08-2023 Basophils/100 WBC (Bld) 0.5 % 0-1 [facility] Bilirubin [Mass/Vol] 0.40 mg/dL 0.20-1.00 [facility] Comment on above: For patients on eltr ombopag therapy, use of Dimension [place] TBIL is not recommended. Chloride [Moles/Vol] 107 mmol/L 98-107 [facility] Eosinophils/100 WBC (Bld) 1.7 % 0-5 [facility] Glucose [Mass/Vol] 105 mg/dL 74-106 [facility] Comment on above: Fasting Glucose resu lt from 100 to 125 mg/dL suggests IMPAIRED HOMEOSTASIS per A.D.A. criteria. Hemoglobin (Bld) [Mass/Vol] 13.6 g/dL 12.0-15.0 [facility] Monocytes/100 WBC (Bld) 6.8 % 0-10 [facility] Neutrophils (Bld) [#/Vol] 7.5 10*3/uL 2.0-7.7 [facility] Neutrophils/100 WBC (Bld) 67.0 % 47-70 [facility] Potassium [Moles/Vol] 3.8 mmol/L 3.5-5.1 [facility] Protein [Mass/Vol] 7.9 g/dL 6.4-8.2 [facility] Sodium [Moles/Vol] 141 mmol/L 136-145 [facility] WBC (Bld) [#/Vol] 11.2 10*3/uL 4.4-11.0 [facility] Determination of erythrocyte mean corpuscular volume (MCV)Ordered By: Sarah Purdy on 05-08-2023 MCV (RBC) [Entitic vol] 87.9 fL 81-99 [facility] Direct bilirubinOrdered By: Sarah Purdy on 05-08-2023 Bilirubin.direct [Mass/Vol] 0.11 mg/dL 0.00-0.30 [facility] Erythrocyte distribution wid th ratioOrdered By: Sarah Purdy on 05-08-2023 Erythrocyte distribution width (RBC) [Ratio] 14.3 % 11.6-14.6 [facility] Erythrocyte distribution wid th standard deviationOrdered By: Sarah Purdy on 05-08-2023 Erythrocyte distribution width (RBC) [Entitic vol] 46.1 fL 35.1-43.9 [facility] Hematocrit Auto (Bld) [Volum e fraction]Ordered By: Sarah Purdy on 05-08-2023 Hematocrit (Bld) [Volume fraction] 44.5 % 37-47 [facility] Immature granulocytes/100 WB C Auto (Bld)Ordered By: Sarah Purdy on 05-08-2023 Immature granulocytes/100 WBC (Bld) 0.400 % 0.0-0.9 [facility] Comment on above: IG% - Immature Granu locytes (promyelocytes, myelocytes and metamyelocytes) > 1% indicates that a LEFT SHIFT is Present. Laboratory - Chemistry and C hemistry - challengeOrdered By: Sarah Purdy on 05-08-2023 ALP [Catalytic activity/Vol] 66 U/L 45-117 [facility] ALT [Catalytic activity/Vol] 39 U/L 13-56 [facility] CO2 [Moles/Vol] 26.0 mmol/L 21.0-32.0 [facility] Globulin (S) [Mass/Vol] 4.4 g/dL 2.2-4.2 [facility] Urea nitrogen/Creatinine [Mass ratio] 18.9 mg/mg 10-20 [facility] Laboratory - Hematology and Cell countsOrdered By: Sarah Purdy on 05-08-2023 MCH (RBC) [Entitic mass] 26.9 pg 27.0-32.0 [facility] MCHC (RBC) [Mass/Vol] 30.6 g/dL 32-36 [facility] Nucleated RBC/100 WBC (Bld) [Ratio] 0 % 0-5 [facility] Platelet mean volume (Bld) [Entitic vol] 9.6 fL 6.2-12.0 [facility] Platelets (Bld) [#/Vol] 408 10*3/uL 150-450 [facility] Laboratory - Microbiology an d Antimicrobial susceptibilityOrdered By: Sarah Purdy on 05-08-2023 SARS-CoV-2 (COVID-19) RNA DAMARIS+probe Ql (Unsp spec) [facility] No Panel InformationOrdered By: Sarah Purdy on 05-08-2023 [place] Level 0.70 mmol/L 0.60-1.20 [facility] Comment on above: Moderate Hemolysis, Result may be falsely increased. Estimated Creatinine Clearance Calc 157.46 ml/min [facility] Estimated GFR (MDRD) Amer 122 mL/min >60 [facility] Comment on above: GFR Calc Estimated GFR (MDRD) Non-Af Amer 100 mL/min >60 [facility] Comment on above: Non- GFR Calc RBC Auto (Bld) [#/Vol]Ordere d By: Sarah Purdy on 05-08-2023 RBC (Bld) [#/Vol] 5.06 10*6/uL 4.2-5.4 [facility] Serum or plasma calcium cherelle urement (mass/volume)Ordered By: Sarah Purdy on 05-08-2023 Calcium [Mass/Vol] 9.1 mg/dL 8.5-10.1 [facility] Serum or plasma choriogonado tropin detectionOrdered By: Sarah Purdy on 05-08-2023 HCG ( test) Ql Negative [facility] Serum or plasma creatinine m easurement (mass/volume)Ordered By: Sarah Purdy on 05-08-2023 Creatinine [Mass/Vol] 0.74 mg/dL 0.55-1.02 [facility] Comment on above: The validity of the calculated GFR & GFRAA in patients over 70 years has not been determined. Clinical correlation is essential. Serum or plasma urea nitroge n measurement (mass/volume)Ordered By: Sarah Purdy on 05-08-2023 Urea nitrogen [Mass/Vol] 14 mg/dL 7-18 [facility] Thin prep Papanicolaou smear with manual screeningOrdered By: Sarah Purdy on 05-08-2023 Thin prep Papanicolaou smear with manual screening 3.5 g/dL 3.2-5.0 [facility] Thin prep Papanicolaou smear with manual screening 16 U/L 15-37 [facility] Thin prep Papanicolaou smear with manual screening 8 5-15 [facility] Absolute lymphocyte countOrd ered By: Lianet Worrell on 04-07-2023 Lymphocytes Auto (Unsp spec) [#/Vol] 2.28 10*3/uL 0.83-4.51 [facility] Automated lymphocyte count a s percentage of total leukocytesOrdered By: Lianet Worrell on 04-07-2023 Lymphocytes/100 WBC Auto (Unsp spec) 24.6 % 19-41 [facility] Basophil percentageOrdered B y: Lianet Worrell on 04-07-2023 Basophils/100 WBC (Bld) 0.5 % 0-1 [facility] Chloride [Moles/Vol] 113 mmol/L 98-107 [facility] Eosinophils/100 WBC (Bld) 1.0 % 0-5 [facility] Glucose [Mass/Vol] 122 mg/dL 74-106 [facility] Comment on above: Fasting Glucose resu lt from 100 to 125 mg/dL suggests IMPAIRED HOMEOSTASIS per A.D.A. criteria. Hemoglobin (Bld) [Mass/Vol] 12.7 g/dL 12.0-15.0 [facility] Monocytes/100 WBC (Bld) 7.3 % 0-10 [facility] Neutrophils (Bld) [#/Vol] 6.1 10*3/uL 2.0-7.7 [facility] Neutrophils/100 WBC (Bld) 66.2 % 47-70 [facility] Potassium [Moles/Vol] 3.8 mmol/L 3.5-5.1 [facility] Sodium [Moles/Vol] 140 mmol/L 136-145 [facility] WBC (Bld) [#/Vol] 9.3 10*3/uL 4.4-11.0 [facility] Determination of erythrocyte mean corpuscular volume (MCV)Ordered By: Lianet Worrell on 04-07-2023 MCV (RBC) [Entitic vol] 86.5 fL 81-99 [facility] Erythrocyte distribution wid th ratioOrdered By: Lianet Worrell on 04-07-2023 Erythrocyte distribution width (RBC) [Ratio] 13.9 % 11.6-14.6 [facility] Erythrocyte distribution wid th standard deviationOrdered By: Lianet Worrell on 04-07-2023 Erythrocyte distribution width (RBC) [Entitic vol] 43.9 fL 35.1-43.9 [facility] Hematocrit Auto (Bld) [Volum e fraction]Ordered By: Lianet Worrell on 04-07-2023 Hematocrit (Bld) [Volume fraction] 40.4 % 37-47 [facility] Immature granulocytes/100 WB C Auto (Bld)Ordered By: Lianet Worrell on 04-07-2023 Immature granulocytes/100 WBC (Bld) 0.400 % 0.0-0.9 [facility] Comment on above: IG% - Immature Granu locytes (promyelocytes, myelocytes and metamyelocytes) > 1% indicates that a LEFT SHIFT is Present. Laboratory - Chemistry and C hemistry - challengeOrdered By: Lianet Worrell on 04-07-2023 CO2 [Moles/Vol] 23.0 mmol/L 21.0-32.0 [facility] Urea nitrogen/Creatinine [Mass ratio] 15.8 mg/mg 10-20 [facility] Laboratory - Drug toxicology Ordered By: Lianet Worrell on 04-07-2023 Amphetamines Ql (U) Negative <1000 ng/mL [facility] Benzodiazepines Ql (U) Negative < 200 ng/mL [facility] Cannabinoids Screen Ql (U) Negative < 50 ng/mL [facility] Cocaine Ql (U) Negative < 300 ng/mL [facility] Opiates Ql (U) Negative < 300 ng/mL [facility] Laboratory - Hematology and Cell countsOrdered By: Lianet Worrell on 04-07-2023 MCH (RBC) [Entitic mass] 27.2 pg 27.0-32.0 [facility] MCHC (RBC) [Mass/Vol] 31.4 g/dL 32-36 [facility] Nucleated RBC/100 WBC (Bld) [Ratio] 0 % 0-5 [facility] Platelet mean volume (Bld) [Entitic vol] 9.0 fL 6.2-12.0 [facility] Platelets (Bld) [#/Vol] 340 10*3/uL 150-450 [facility] Laboratory - Microbiology an d Antimicrobial susceptibilityOrdered By: Lianet Worrell on 04-07-2023 SARS-CoV-2 (COVID-19) RNA DAMARIS+probe Ql (Unsp spec) [facility] SARS-CoV-2 (COVID-19) RNA DAMARIS+probe Ql (Unsp spec) [facility] No Panel InformationOrdered By: Lianet Worrell on 04-07-2023 MDMA (Ecstasy) Screen Negative < 500 ng/mL [facility] Urine Barbiturates Screen Negative < 200 ng/mL [facility] Urine Drug Screen Comment [facility] Comment on above: CONFIRMATORY TESTING FOR [...] Urine Methadone Screen Negative < 300 ng/mL [facility] Estimated Creatinine Clearance Calc 170.69 ml/min [facility] Estimated GFR (MDRD) Amer 130 mL/min >60 [facility] Comment on above: GFR Calc Estimated GFR (MDRD) Non-Af Amer 108 mL/min >60 [facility] Comment on above: Non- GFR Calc Ethyl Alcohol Level < 3.0 mg/dL [facility] Comment on above: The serum:whole bloo d ethanol ratio is approximately 1.14and varies slightly with hematocrit. Medical Alcohol reference interval and critical value innon-tolerant individuals; 50 - 100 Impairment 100 Intoxication 100 - 250 Severe Poisoning 250 - 400 Deep/possible fatal coma RBC Auto (Bld) [#/Vol]Ordere d By: Lianet Worrell on 04-07-2023 RBC (Bld) [#/Vol] 4.67 10*6/uL 4.2-5.4 [facility] Serum or plasma calcium cherelle urement (mass/volume)Ordered By: Lianet Worrell on 04-07-2023 Calcium [Mass/Vol] 9.4 mg/dL 8.5-10.1 [facility] Serum or plasma choriogonado tropin detectionOrdered By: Lianet Worrell on 04-07-2023 HCG ( test) Ql Negative [facility] Serum or plasma creatinine m easurement (mass/volume)Ordered By: Lianet Worrell on 04-07-2023 Creatinine [Mass/Vol] 0.70 mg/dL 0.55-1.02 [facility] Comment on above: The validity of the calculated GFR & GFRAA in patients over 70 years has not been determined. Clinical correlation is essential. Serum or plasma urea nitroge n measurement (mass/volume)Ordered By: Lianet Worrell on 04-07-2023 Urea nitrogen [Mass/Vol] 11 mg/dL 7-18 [facility] Thin prep Papanicolaou smear with manual screeningOrdered By: Lianet Worrell on 04-07-2023 Thin prep Papanicolaou smear with manual screening 4 5-15 [facility] Urine phencyclidine (PCP) de tectionOrdered By: Lianet Worrell on 04-07-2023 Phencyclidine Ql (U) Negative < 25 ng/mL [facility] Absolute lymphocyte countOrd ered By: Andreas Oliva on 01-30-2023 Lymphocytes Auto (Unsp spec) [#/Vol] 2.23 10*3/uL 0.83-4.51 [facility] Basophil percentageOrdered B y: Andreas Oliva on 01-30-2023 Basophils/100 WBC (Bld) 0.8 % 0-1 [facility] Bilirubin [Mass/Vol] 0.40 mg/dL 0.20-1.00 [facility] Comment on above: For patients on eltr ombopag therapy, use of Dimension [place] TBIL is not recommended. Chloride [Moles/Vol] 108 mmol/L 98-107 [facility] Cholesterol [Mass/Vol] 170 mg/dL <200 [facility] Comment on above: <200 mg/dL Desirable 200-240 mg/dL Borderline >240 mg/dL High Risk Eosinophils/100 WBC (Bld) 1.0 % 0-5 [facility] Glucose [Mass/Vol] 95 mg/dL 74-106 [facility] Neutrophils (Bld) [#/Vol] 7.5 10*3/uL 2.0-7.7 [facility] Neutrophils/100 WBC (Bld) 70.2 % 47-70 [facility] Potassium [Moles/Vol] 4.1 mmol/L 3.5-5.1 [facility] Protein [Mass/Vol] 7.5 g/dL 6.4-8.2 [facility] Sodium [Moles/Vol] 139 mmol/L 136-145 [facility] Triglyceride [Mass/Vol] 120 mg/dL <199 [facility] Comment on above: The drugs N-Acetylcy steine and Metamizole may falsely depress this assay.Serum Triglycerides Reference Interval Normal <150 mg/dL Borderline high 150 - 199 mg/dL High 200 - 499 mg/dL Very High > or = 500 mg/dL WBC (Bld) [#/Vol] 10.6 10*3/uL 4.4-11.0 [facility] Blood erythrocytes count (nu mber/volume)Ordered By: Andreas Oliva on 01-30-2023 RBC (Bld) [#/Vol] 4.57 10*6/uL 4.2-5.4 [facility] Blood hemoglobin measurement (mass/volume)Ordered By: Andreas Oliva on 01-30-2023 Hemoglobin (Bld) [Mass/Vol] 12.9 g/dL 12.0-15.0 [facility] Blood lymphocytes/100 leukoc ytesOrdered By: Andreas Oliva on 01-30-2023 Lymphocytes/100 WBC (Bld) 21.0 % 19-41 [facility] Blood monocytes/100 leukocyt esOrdered By: Andreas Oliva on 01-30-2023 Monocytes/100 WBC (Bld) 6.6 % 0-10 [facility] Blood platelet mean volumeOr dered By: Andreas Oliva on 01-30-2023 Platelet mean volume (Bld) [Entitic vol] 9.1 fL 6.2-12.0 [facility] Determination of erythrocyte mean corpuscular volume (MCV)Ordered By: Andreas Oliva on 01-30-2023 MCV (RBC) [Entitic vol] 91.9 fL 81-99 [facility] Erythrocyte sedimentation ra teOrdered By: Andreas Oliva on 01-30-2023 ESR (Bld) [Velocity] 24 mm/h 0-30 [facility] Hematocrit Auto (Bld) [Volum e fraction]Ordered By: Andreas Oliva on 01-30-2023 Hematocrit (Bld) [Volume fraction] 42.0 % 37-47 [facility] Laboratory - Chemistry and C hemistry - challengeOrdered By: Andreas Oliva on 01-30-2023 ALP [Catalytic activity/Vol] 59 U/L 45-117 [facility] ALT [Catalytic activity/Vol] 29 U/L 13-56 [facility] CO2 [Moles/Vol] 26.0 mmol/L 21.0-32.0 [facility] Globulin (S) [Mass/Vol] 4.2 g/dL 2.2-4.2 [facility] Urea nitrogen/Creatinine [Mass ratio] 23.6 mg/mg 10-20 [facility] Laboratory - Hematology and Cell countsOrdered By: Andreas Oliva on 01-30-2023 Erythrocyte distribution width (RBC) [Entitic vol] 45.3 fL 35.1-43.9 [facility] Erythrocyte distribution width (RBC) [Ratio] 13.3 % 11.6-14.6 [facility] Immature granulocytes/100 WBC (Bld) 0.400 % 0.0-0.9 [facility] Comment on above: IG% - Immature Granu locytes (promyelocytes, myelocytes and metamyelocytes) > 1% indicates that a LEFT SHIFT is Present. MCH (RBC) [Entitic mass] 28.2 pg 27.0-32.0 [facility] Nucleated RBC/100 WBC (Bld) [Ratio] 0 % 0-5 [facility] MCHC Auto (RBC) [Mass/Vol]Or dered By: Andreas Oliva on 01-30-2023 MCHC (RBC) [Mass/Vol] 30.7 g/dL 32-36 [facility] No Panel InformationOrdered By: Andreas Oliva on 01-30-2023 Estimated GFR (MDRD) Amer 135 mL/min >60 [facility] Comment on above: GFR Calc Estimated GFR (MDRD) Non-Af Amer 112 mL/min >60 [facility] Comment on above: Non- GFR Calc Thyroid Stimulating Hormone (TSH) 2.19 uIU/mL 0.358-3.74 [facility] Platelets bldOrdered By: Mello Oliva on 01-30-2023 Platelets (Bld) [#/Vol] 403 10*3/uL 150-450 [facility] Serum or plasma C reactive p rotein measurement (mass/volume)Ordered By: Andreas Oliva on 01-30-2023 CRP [Mass/Vol] 11.40 mg/L 0.0-3.0 [facility] Comment on above: C-Reactive Protein ( CRP) provides useful information for thediagnosis, therapy and monitoring of inflammatory processesand associated diseases. For the evaluation of Relative Riskfor Cardiovascular Disease, a High Sensitivity CRP (HSCRP)should be ordered. Serum or plasma albumin cherelle urement (mass/volume)Ordered By: Andreas Oliva on 01-30-2023 Albumin [Mass/Vol] 3.3 g/dL 3.2-5.0 [facility] Serum or plasma albumin/glob ulin mass ratioOrdered By: Andreas Oliva on 01-30-2023 Albumin/Globulin [Mass ratio] 0.8 {ratio} 0.9-2.4 [facility] Serum or plasma calcium cherelle urement (mass/volume)Ordered By: Andreas Oliva on 01-30-2023 Calcium [Mass/Vol] 8.8 mg/dL 8.5-10.1 [facility] Serum or plasma cholesterol in HDL measurement (mass/volume)Ordered By: Andreas Oliva on 01-30-2023 Cholesterol in HDL [Mass/Vol] 38 mg/dL >40 [facility] Comment on above: The drugs N-Acetylcy steine and Metamizole may falsely depress this assay. Reference Range HDL <40 mg/dL Low HDL Cholesterol HDL >or= 60 mg/dL High HDL Cholesterol Serum or plasma cholesterol in VLDL measurement (mass/volume)Ordered By: Andreas Oliva on 01-30-2023 Cholesterol in VLDL [Mass/Vol] 24 mg/dL 5-40 [facility] Serum or plasma creatinine m easurement (mass/volume)Ordered By: Andreas Oliva on 01-30-2023 Creatinine [Mass/Vol] 0.68 mg/dL 0.55-1.02 [facility] Comment on above: The validity of the calculated GFR & GFRAA in patients over 70 years has not been determined. Clinical correlation is essential. Serum or plasma low density lipoprotein (LDL) cholesterol measurement (mass/volume)Ordered By: Andreas Oliva on 01-30-2023 Cholesterol in LDL [Mass/Vol] 108 mg/dL 0-130 [facility] Serum or plasma urea nitroge n measurement (mass/volume)Ordered By: Andreas Oliva on 01-30-2023 Urea nitrogen [Mass/Vol] 16 mg/dL 7-18 [facility] Thin prep Papanicolaou smear with manual screeningOrdered By: Andraes Oliva on 01-30-2023 Thin prep Papanicolaou smear with manual screening 10 U/L 15-37 [facility] Thin prep Papanicolaou smear with manual screening 5 5-15 [facility] Whole blood hemoglobin A1c/t otal hemoglobin ratio (mass fraction)Ordered By: Andreas Oliva on 01-30-2023 HbA1c (Bld) [Mass fraction] 5.1 % 3.8-5.6 [facility] Comment on above: Normal < 5.7 % Predi abetic 5.7 - 6.4 % Diabetic >or= 6.5 % Please note range changes. Absolute lymphocyte countOrd ered By: Laura Li on 12-20-2022 Lymphocytes Auto (Unsp spec) [#/Vol] 2.18 10*3/uL 0.83-4.51 [facility] Basophil percentageOrdered B y: Laura Li on 12-20-2022 Basophils/100 WBC (Bld) 0.6 % 0-1 [facility] Chloride [Moles/Vol] 110 mmol/L 98-107 [facility] Eosinophils/100 WBC (Bld) 2.0 % 0-5 [facility] Glucose [Mass/Vol] 109 mg/dL 74-106 [facility] Comment on above: Fasting Glucose resu lt from 100 to 125 mg/dL suggests IMPAIRED HOMEOSTASIS per A.D.A. criteria. Neutrophils (Bld) [#/Vol] 3.6 10*3/uL 2.0-7.7 [facility] Neutrophils/100 WBC (Bld) 55.7 % 47-70 [facility] Potassium [Moles/Vol] 3.6 mmol/L 3.5-5.1 [facility] Sodium [Moles/Vol] 140 mmol/L 136-145 [facility] WBC (Bld) [#/Vol] 6.4 10*3/uL 4.4-11.0 [facility] Blood erythrocytes count (nu mber/volume)Ordered By: Laura Li on 12-20-2022 RBC (Bld) [#/Vol] 3.98 10*6/uL 4.2-5.4 [facility] Blood hemoglobin measurement (mass/volume)Ordered By: Laura Li on 12-20-2022 Hemoglobin (Bld) [Mass/Vol] 11.5 g/dL 12.0-15.0 [facility] Blood lymphocytes/100 leukoc ytesOrdered By: Laura Li on 12-20-2022 Lymphocytes/100 WBC (Bld) 34.0 % 19-41 [facility] Blood monocytes/100 leukocyt esOrdered By: Laura Li on 12-20-2022 Monocytes/100 WBC (Bld) 7.5 % 0-10 [facility] Blood platelet mean volumeOr dered By: Laura Li on 12-20-2022 Platelet mean volume (Bld) [Entitic vol] 9.1 fL 6.2-12.0 [facility] Determination of erythrocyte mean corpuscular volume (MCV)Ordered By: Laura Li on 12-20-2022 MCV (RBC) [Entitic vol] 91.2 fL 81-99 [facility] Hematocrit Auto (Bld) [Volum e fraction]Ordered By: Laura Li on 12-20-2022 Hematocrit (Bld) [Volume fraction] 36.3 % 37-47 [facility] - Chemistry and C hemistry - challengeOrdered By: Laura Li on 12-20-2022 CO2 [Moles/Vol] 24.0 mmol/L 21.0-32.0 [facility] Magnesium [Mass/Vol] 2.2 mg/dL 1.6-2.6 [facility] Urea nitrogen/Creatinine [Mass ratio] 20.0 mg/mg 10-20 [facility] - Hematology and Cell countsOrdered By: Laura Li on 12-20-2022 Erythrocyte distribution width (RBC) [Entitic vol] 44.9 fL 35.1-43.9 [facility] Erythrocyte distribution width (RBC) [Ratio] 13.3 % 11.6-14.6 [facility] Immature granulocytes/100 WBC (Bld) 0.200 % 0.0-0.9 [facility] Comment on above: IG% - Immature Granu locytes (promyelocytes, myelocytes and metamyelocytes) > 1% indicates that a LEFT SHIFT is Present. MCH (RBC) [Entitic mass] 28.9 pg 27.0-32.0 [facility] Nucleated RBC/100 WBC (Bld) [Ratio] 0 % 0-5 [facility] MCHC Auto (RBC) [Mass/Vol]Or dered By: Laura Li on 12-20-2022 MCHC (RBC) [Mass/Vol] 31.7 g/dL 32-36 [facility] No Panel InformationOrdered By: Laura Li on 12-20-2022 Estimated Creatinine Clearance Calc 133.01 ml/min [facility] Estimated GFR (MDRD) Amer 155 mL/min >60 [facility] Comment on above: GFR Calc Estimated GFR (MDRD) Non-Af Amer 128 mL/min >60 [facility] Comment on above: Non- GFR Calc Platelets bldOrdered By: Lc Li on 12-20-2022 Platelets (Bld) [#/Vol] 322 10*3/uL 150-450 [facility] Serum or plasma calcium cherelle urement (mass/volume)Ordered By: Laura iL on 12-20-2022 Calcium [Mass/Vol] 8.5 mg/dL 8.5-10.1 [facility] Serum or plasma cortisol burton surement (mass/volume)Ordered By: Laura Li on 12-20-2022 Cortisol [Mass/Vol] 13.40 ug/dL 3.44-22.45 [facility] Comment on above: Adult (AM) 5.27 - 22 .45 ug/dL Adult (PM) 3.44 - 16.76 ug/dLPlease note revised CORTISOL reference range effective 2019. Serum or plasma creatinine m easurement (mass/volume)Ordered By: Laura Li on 12-20-2022 Creatinine [Mass/Vol] 0.60 mg/dL 0.55-1.02 [facility] Comment on above: The validity of the calculated GFR & GFRAA in patients over 70 years has not been determined. Clinical correlation is essential. Serum or plasma urea nitroge n measurement (mass/volume)Ordered By: Laura Li on 12-20-2022 Urea nitrogen [Mass/Vol] 12 mg/dL 7-18 [facility] Thin prep Papanicolaou smear with manual screeningOrdered By: Laura Li on 12-20-2022 Thin prep Papanicolaou smear with manual screening 6 5-15 [facility] Absolute lymphocyte countOrd ered By: Presley Ibarra on 12-18-2022 Lymphocytes Auto (Unsp spec) [#/Vol] 2.03 10*3/uL 0.83-4.51 [facility] Basophil percentageOrdered B y: Presley Ibarra on 12-18-2022 Basophils/100 WBC (Bld) 0.5 % 0-1 [facility] Chloride [Moles/Vol] 108 mmol/L 98-107 [facility] Eosinophils/100 WBC (Bld) 0.7 % 0-5 [facility] Glucose [Mass/Vol] 107 mg/dL 74-106 [facility] Comment on above: Fasting Glucose resu lt from 100 to 125 mg/dL suggests IMPAIRED HOMEOSTASIS per A.D.A. criteria. Neutrophils (Bld) [#/Vol] 8.3 10*3/uL 2.0-7.7 [facility] Neutrophils/100 WBC (Bld) 73.9 % 47-70 [facility] Potassium [Moles/Vol] 4.1 mmol/L 3.5-5.1 [facility] Sodium [Moles/Vol] 140 mmol/L 136-145 [facility] WBC (Bld) [#/Vol] 11.2 10*3/uL 4.4-11.0 [facility] Blood erythrocytes count (nu mber/volume)Ordered By: Presley Ibarra on 12-18-2022 RBC (Bld) [#/Vol] 4.50 10*6/uL 4.2-5.4 [facility] Blood hemoglobin measurement (mass/volume)Ordered By: Presley Ibarra on 12-18-2022 Hemoglobin (Bld) [Mass/Vol] 12.9 g/dL 12.0-15.0 [facility] Blood lymphocytes/100 leukoc ytesOrdered By: Presley Ibarra on 12-18-2022 Lymphocytes/100 WBC (Bld) 18.1 % 19-41 [facility] Blood monocytes/100 leukocyt esOrdered By: Presley Ibarra on 12-18-2022 Monocytes/100 WBC (Bld) 6.4 % 0-10 [facility] Blood platelet mean volumeOr dered By: Presley Ibarra on 12-18-2022 Platelet mean volume (Bld) [Entitic vol] 9.0 fL 6.2-12.0 [facility] Determination of erythrocyte mean corpuscular volume (MCV)Ordered By: Presley Ibarra on 12-18-2022 MCV (RBC) [Entitic vol] 91.1 fL 81-99 [facility] Hematocrit Auto (Bld) [Volum e fraction]Ordered By: Presley Ibarra on 12-18-2022 Hematocrit (Bld) [Volume fraction] 41.0 % 37-47 [facility] Laboratory - Chemistry and C hemistry - challengeOrdered By: Presley Ibarra on 12-18-2022 CO2 [Moles/Vol] 29.0 mmol/L 21.0-32.0 [facility] Urea nitrogen/Creatinine [Mass ratio] 17.9 mg/mg 10-20 [facility] - Hematology and Cell countsOrdered By: Presley Ibarra on 12-18-2022 Erythrocyte distribution width (RBC) [Entitic vol] 46.5 fL 35.1-43.9 [facility] Erythrocyte distribution width (RBC) [Ratio] 13.7 % 11.6-14.6 [facility] Immature granulocytes/100 WBC (Bld) 0.400 % 0.0-0.9 [facility] Comment on above: IG% - Immature Granu locytes (promyelocytes, myelocytes and metamyelocytes) > 1% indicates that a LEFT SHIFT is Present. MCH (RBC) [Entitic mass] 28.7 pg 27.0-32.0 [facility] Nucleated RBC/100 WBC (Bld) [Ratio] 0 % 0-[facility] ([facility]) [Mass/Vol]Or dered By: Presley Ibarra on 12-18-2022 MCHC (RBC) [Mass/Vol] 31.5 g/dL 32-36 [facility] No Panel InformationOrdered By: Presley Ibarra on 12-18-2022 [place] Level 0.60 mmol/L 0.60-1.20 [facility] D-Dimer Quantitative (PE/DVT) < 0.27 FEU/ug/m 0.27-0.49 [facility] Comment on above: NORMAL D-Dimer level (<0.50) indicates no DVT or PE. Estimated GFR (MDRD) Amer 137 mL/min >60 [facility] Comment on above: GFR Calc Estimated GFR (MDRD) Non-Af Amer 113 mL/min >60 [facility] Comment on above: Non- GFR Calc Troponin I High Sensitivity 3 pg/mL 3.0-54.0 [facility] Comment on above: Please Note: New Renetta t Units and Gender Specific Reference Ranges. For more information see Policy Stat Procedure [place] High Sensitivity Troponin (TNIH) and attachments. Platelets bldOrdered By: Jada Ibarra on 12-18-2022 Platelets (Bld) [#/Vol] 404 10*3/uL 150-450 [facility] Serum or plasma calcium cherelle urement (mass/volume)Ordered By: Presley Ibarra on 12-18-2022 Calcium [Mass/Vol] 9.2 mg/dL 8.5-10.1 [facility] Serum or plasma creatinine m easurement (mass/volume)Ordered By: Presley Ibarra on 12-18-2022 Creatinine [Mass/Vol] 0.67 mg/dL 0.55-1.02 [facility] Comment on above: The validity of the calculated GFR & GFRAA in patients over 70 years has not been determined. Clinical correlation is essential. Serum or plasma urea nitroge n measurement (mass/volume)Ordered By: Presley Ibarra on 12-18-2022 Urea nitrogen [Mass/Vol] 12 mg/dL 7-18 [facility] Thin prep Papanicolaou smear with manual screeningOrdered By: Presley Ibarra on 12-18-2022 Thin prep Papanicolaou smear with manual screening 3 5-15 [facility] Basophil percentageOrdered B y: [facility] on 12-12-2022 Bilirubin [Mass/Vol] 0.80 mg/dL 0.20-1.00 [facility] Comment on above: For patients on eltr ombopag therapy, use of Dimension [place] TBIL is not recommended. Chloride [Moles/Vol] 105 mmol/L 98-107 [facility] Glucose [Mass/Vol] 96 mg/dL 74-106 [facility] Potassium [Moles/Vol] 4.4 mmol/L 3.5-5.1 [facility] Protein [Mass/Vol] 7.5 g/dL 6.4-8.2 [facility] Sodium [Moles/Vol] 140 mmol/L 136-145 [facility] Laboratory - Chemistry and C hemistry - challengeOrdered By: [facility] on 12-12-2022 ALP [Catalytic activity/Vol] 74 U/L 45-117 [facility] ALT [Catalytic activity/Vol] 54 U/L 13-56 [facility] CO2 [Moles/Vol] 28.0 mmol/L 21.0-32.0 [facility] Globulin (S) [Mass/Vol] 3.8 g/dL 2.2-4.2 [facility] Lipase [Catalytic activity/Vol] 32 U/L 13-75 [facility] Comment on above: Please note:LIPASE r evised reference range effective 22. New Lipase methodology. Expected to produce lower values than the previous assay method. NEW Reference Range: 13 - 75 U/L Urea nitrogen/Creatinine [Mass ratio] 12.5 mg/mg - [facility] No Panel InformationOrdered By: [facility] on 12-12-2022 Estimated GFR (MDRD) Amer 111 mL/min >60 [facility] Comment on above: GFR Calc Estimated GFR (MDRD) Non-Af Amer 92 mL/min >60 [facility] Comment on above: Non- GFR Calc Insulin Level 80.9 mU/L 2.6-37.6 [facility] [place] Level 0.60 mmol/L 0.60-1.20 [facility] Serum or plasma albumin cherelle urement (mass/volume)Ordered By: [facility] on 12-12-2022 Albumin [Mass/Vol] 3.7 g/dL 3.2-5.0 [facility] Serum or plasma albumin/glob ulin mass ratioOrdered By: [facility] on 12-12-2022 Albumin/Globulin [Mass ratio] 1.0 {ratio} 0.9-2.4 [facility] Serum or plasma calcium cherelle urement (mass/volume)Ordered By: [facility] on 12-12-2022 Calcium [Mass/Vol] 9.5 mg/dL 8.5-10.1 [facility] Serum or plasma creatinine m easurement (mass/volume)Ordered By: [facility] on 12-12-2022 Creatinine [Mass/Vol] 0.80 mg/dL 0.55-1.02 [facility] Comment on above: The validity of the calculated GFR & GFRAA in patients over 70 years has not been determined. Clinical correlation is essential. Serum or plasma urea nitroge n measurement (mass/volume)Ordered By: [facility] on 12-12-2022 Urea nitrogen [Mass/Vol] 10 mg/dL 7-18 [facility] Thin prep Papanicolaou smear with manual screeningOrdered By: [facility] on 12-12-2022 Thin prep Papanicolaou smear with manual screening 21 U/L 15-37 [facility] Thin prep Papanicolaou smear with manual screening 7 5-15 [facility] Absolute lymphocyte countOrd ered By: Rodolfo Das on 12-09-2022 Lymphocytes Auto (Unsp spec) [#/Vol] 2.14 10*3/uL 0.83-4.51 [facility] Basophil percentageOrdered B y: Rodolfo Das on 12-09-2022 Basophil percentage 5-10 SEEN /hpf 0-5 [facility] Basophils/100 WBC (Bld) 0.5 % 0-1 [facility] Bilirubin [Mass/Vol] 0.70 mg/dL 0.20-1.00 [facility] Comment on above: For patients on eltr ombopag therapy, use of Dimension [place] TBIL is not recommended. Chloride [Moles/Vol] 106 mmol/L 98-107 [facility] Eosinophils/100 WBC (Bld) 0.7 % 0-5 [facility] Glucose [Mass/Vol] 91 mg/dL 74-106 [facility] Neutrophils (Bld) [#/Vol] 7.5 10*3/uL 2.0-7.7 [facility] Neutrophils/100 WBC (Bld) 71.2 % 47-70 [facility] Potassium [Moles/Vol] 4.3 mmol/L 3.5-5.1 [facility] Protein [Mass/Vol] 7.6 g/dL 6.4-8.2 [facility] Sodium [Moles/Vol] 138 mmol/L 136-145 [facility] WBC (Bld) [#/Vol] 10.5 10*3/uL 4.4-11.0 [facility] Beta hCG serum qualOrdered B y: Rodolfo Das on 12-09-2022 Beta HCG ( test) Ql Negative [facility] Bilirubin Test strip Ql (U)O rdered By: Rodolfo Das on 12-09-2022 Bilirubin Ql (U) Negative Negative [facility] Blood erythrocytes count (nu mber/volume)Ordered By: Rodolfo Das on 12-09-2022 RBC (Bld) [#/Vol] 4.66 10*6/uL 4.2-5.4 [facility] Blood hemoglobin measurement (mass/volume)Ordered By: Rodolfo Das on 12-09-2022 Hemoglobin (Bld) [Mass/Vol] 13.4 g/dL 12.0-15.0 [facility] Blood lymphocytes/100 leukoc ytesOrdered By: Rodolfo Das on 12-09-2022 Lymphocytes/100 WBC (Bld) 20.4 % 19-41 [facility] Blood monocytes/100 leukocyt esOrdered By: Rodolfo Das on 12-09-2022 Monocytes/100 WBC (Bld) 6.9 % 0-10 [facility] Blood platelet mean volumeOr dered By: Rodolfo Das on 12-09-2022 Platelet mean volume (Bld) [Entitic vol] 8.9 fL 6.2-12.0 [facility] Culture, urineOrdered By: Vj Das on 12-09-2022 Bacteria identified Cx Nom (U) Positive [facility] Bacteria identified Cx Nom (U) Positive [facility] Determination of erythrocyte mean corpuscular volume (MCV)Ordered By: Rodolfo Das on 12-09-2022 MCV (RBC) [Entitic vol] 89.9 fL 81-99 [facility] Hematocrit Auto (Bld) [Volum e fraction]Ordered By: Rodlofo Das on 12-09-2022 Hematocrit (Bld) [Volume fraction] 41.9 % 37-47 [facility] Ketones Test strip Ql (U)Ord ered By: Rodolfo Das on 12-09-2022 Ketones Ql (U) 5 mg/dl Negative [facility] Laboratory - Chemistry and C hemistry - challengeOrdered By: Rodolfo Das on 12-09-2022 ALP [Catalytic activity/Vol] 69 U/L 45-117 [facility] ALT [Catalytic activity/Vol] 52 U/L 13-56 [facility] CO2 [Moles/Vol] 28.0 mmol/L 21.0-32.0 [facility] Globulin (S) [Mass/Vol] 4.0 g/dL 2.2-4.2 [facility] Lipase [Catalytic activity/Vol] 50 U/L 13-75 [facility] Comment on above: Please note:LIPASE r evised reference range effective 22. New Lipase methodology. Expected to produce lower values than the previous assay method. NEW Reference Range: 13 - 75 U/L Urea nitrogen/Creatinine [Mass ratio] 18.9 mg/mg 10-20 [facility] - Hematology and Cell countsOrdered By: Rodolfo Das on 12-09-2022 Erythrocyte distribution width (RBC) [Entitic vol] 45.8 fL 35.1-43.9 [facility] Erythrocyte distribution width (RBC) [Ratio] 13.9 % 11.6-14.6 [facility] Immature granulocytes/100 WBC (Bld) 0.300 % 0.0-0.9 [facility] Comment on above: IG% - Immature Granu locytes (promyelocytes, myelocytes and metamyelocytes) > 1% indicates that a LEFT SHIFT is Present. MCH (RBC) [Entitic mass] 28.8 pg 27.0-32.0 [facility] Nucleated RBC/100 WBC (Bld) [Ratio] 0 % 0-5 [facility] MCHC Auto (RBC) [Mass/Vol]Or dered By: Rodolfo Das on 12-09-2022 MCHC (RBC) [Mass/Vol] 32.0 g/dL 32-36 [facility] Mucus LM Ql (Urine sed)Order ed By: Rodolfo Das on 12-09-2022 Mucus Ql (Urine sed) 0 SEEN /hpf [facility] Nitrite Test strip Ql (U)Ord ered By: Rodolfo Das on 12-09-2022 Nitrite Ql (U) Negative Negative [facility] No Panel InformationOrdered By: Rodolfo Das on 12-09-2022 Estimated Creatinine Clearance Calc 120.15 ml/min [facility] Estimated GFR (MDRD) Amer 132 mL/min >60 [facility] Comment on above: GFR Calc Estimated GFR (MDRD) Non-Af Amer 109 mL/min >60 [facility] Comment on above: Non- GFR Calc Platelets bldOrdered By: Vilma Das on 12-09-2022 Platelets (Bld) [#/Vol] 386 10*3/uL 150-450 [facility] Protein Test strip Ql (U)Ord ered By: Rodolfo Das on 12-09-2022 Protein Ql (U) 30 mg/dl Negative [facility] Serum or plasma albumin cherelle urement (mass/volume)Ordered By: Rodolfo Das on 12-09-2022 Albumin [Mass/Vol] 3.6 g/dL 3.2-5.0 [facility] Serum or plasma albumin/glob ulin mass ratioOrdered By: Rodolfo Das on 12-09-2022 Albumin/Globulin [Mass ratio] 0.9 {ratio} 0.9-2.4 [facility] Serum or plasma calcium cherelle urement (mass/volume)Ordered By: Rodolfo Das on 12-09-2022 Calcium [Mass/Vol] 9.2 mg/dL 8.5-10.1 [facility] Serum or plasma creatinine m easurement (mass/volume)Ordered By: Rodolfo Das on 12-09-2022 Creatinine [Mass/Vol] 0.69 mg/dL 0.55-1.02 [facility] Comment on above: The validity of the calculated GFR & GFRAA in patients over 70 years has not been determined. Clinical correlation is essential. Serum or plasma urea nitroge n measurement (mass/volume)Ordered By: Rodolfo Das on 12-09-2022 Urea nitrogen [Mass/Vol] 13 mg/dL 7-18 [facility] Squamous epithelial cells de tection in urine sediment by light microscopyOrdered By: Rodolfo Das on 12-09-2022 Epithelial cells.squamous LM Ql (Urine sed) 0 SEEN /hpf 5-10 [facility] Thin prep Papanicolaou smear with manual screeningOrdered By: Rodolfo Das on 12-09-2022 Thin prep Papanicolaou smear with manual screening 20 U/L 15-37 [facility] Thin prep Papanicolaou smear with manual screening 4 5-15 [facility] Urine blood detectionOrdered By: Rodolfo Das on 12-09-2022 RBC Ql (U) 10 /ul Negative [facility] RBC Ql (U) 0 SEEN /hpf 0-5 [facility] Urine clarityOrdered By: Vilma Das on 12-09-2022 Clarity (U) Sl. Cloudy Clear [facility] Urine color determinationOrd ered By: Rodolfo Das on 12-09-2022 Color (U) Yellow Yellow [facility] Urine glucose detectionOrder ed By: Rodolfo Das on 12-09-2022 Glucose Ql (U) Normal mg/dl Normal [facility] Urine leukocyte esterase det ection by dipstickOrdered By: Rodolfo Das on 12-09-2022 Leukocyte esterase Test strip Ql (U) 500 /ul Negative [facility] Urine pHOrdered By: Rodolfo alfaro on 12-09-2022 pH (U) 6.0 [pH] 5.0 - 8.0 [facility] Urine sediment bacteria coun t by microscopy (number/high power field)Ordered By: Rodolfo Das on 12-09-2022 Bacteria LM.HPF (Urine sed) [#/Area] 1 /[HPF] None Seen [facility] Urine specific gravity measu rementOrdered By: Rodolfo Das on 12-09-2022 Specific gravity (U) [Rel density] 1.025 1.002-1.030 [facility] Urobilinogen Auto test strip Ql (U)Ordered By: Rodolfo Das on 12-09-2022 Urobilinogen Ql (U) Normal mg/dl Normal [facility] .Auto Diffon 12-04-2022 Basophil, Absolute 0.0 10 3/mcL Normal 0.0-0.2 [facility] ([place]) Comment on above: Performed By: #### B JULIO CESAR BROWN, ANEU, GFR, CBC, ADIFF #### [address] [address] Basophils/100 WBC (Bld) 0.5 % Normal 0.0-2.5 [facility] ([place]) Comment on above: Performed By: #### B JULIO CESAR BROWN, ANEU, GFR, CBC, ADIFF #### [address] [address] Eosinophil, Absolute 0.1 10 3/mcL Normal 0.0-0.4 [facility] ([place]) Comment on above: Performed By: #### B JULIO CESAR BROWN, ANEU, GFR, CBC, ADIFF #### [address] [address] Eosinophils/100 WBC (Bld) 1.0 % Normal 0.0-7.0 [facility] ([place]) Comment on above: Performed By: #### B JULIO CESAR BROWN, ANEU, GFR, CBC, ADIFF #### [address] [address] Lymphocyte, Absolute 2.6 10 3/mcL Normal 0.8-3.9 [facility] ([place]) Comment on above: Performed By: #### B JULIO CESAR BROWN, ANEU, GFR, CBC, ADIFF #### [address] [address] Lymphocytes/100 WBC (Bld) 26.3 % Normal 10.0-50.0 [facility] ([place]) Comment on above: Performed By: #### B JULIO CESAR BROWN, ANEU, GFR, CBC, ADIFF #### [address] [address] Monocyte, Absolute 0.7 10 3/mcL Normal 0.2-1.0 [facility] ([place]) Comment on above: Performed By: #### B JULIO CESAR BROWN, ANEU, GFR, CBC, ADIFF #### [address] [address] Monocytes/100 WBC (Bld) 7.1 % Normal 1.7-13.0 [facility] ([place]) Comment on above: Performed By: #### B JULIO CESAR BROWN, ANEU, GFR, CBC, ADIFF #### [address] [address] Neutrophils/100 WBC (Bld) 65.1 % Normal 37.0-80.0 [facility] ([place] Comment on above: Performed By: #### B JULIO CESAR BROWN, ANEU, GFR, CBC, ADIFF #### [address] [address] .GFRon 12-04-2022 GFR 123 ml/min/1.73sqm Normal [facility] ([place]) Comment on above: Result Comment: GFR Population [...] CESAR BROWN, ANEU, GFR, CBC, ADIFF #### [address] [address] GFR Non- 101 ml/min/1.73sqm Normal [facility] ([place]) Comment on above: Result Comment: GFR Population [...] CESAR BROWN, ANEU, GFR, CBC, ADIFF #### [address] [address] .MDWon 12-04-2022 Monocyte Distribution Width 17.49 Normal 0.00-20.00 [facility] ([place]) Comment on above: Result Comment: For ED adult patients suspected of sepsis, MDW<=20.0 does not rule out sepsis or risk of sepsis Performed By: #### B JULIO CESAR BROWN, ANEU, GFR, CBC, ADIFF #### [address] [address] .NEUABSon 12-04-2022 Neutrophil, Absolute 6.3 10 3/mcL High 2.9-6.2 [facility] ([place]) Comment on above: Performed By: #### B JULIO CESAR BRWON, ANEU, GFR, CBC, ADIFF #### [address] [address] BMPon 12-04-2022 BUN/Creatinine Ratio 17 ratio Normal 7-27 [facility] ([place]) Comment on above: Performed By: #### B JULIO CESAR BROWN, ANEU, GFR, CBC, ADIFF #### [address] [address] Calcium [Mass/Vol] 9.2 mg/dL Normal 8.4-10.2 [facility] ([place]) Comment on above: Performed By: #### B JULIO CESAR BROWN, ANEU, GFR, CBC, ADIFF #### [address] [address] Chloride [Moles/Vol] 104 mmol/L Normal 98-107 [facility] ([place]) Comment on above: Performed By: #### B JULIO CESAR BROWN, ANEU, GFR, CBC, ADIFF #### [address] [address] CO2 [Moles/Vol] 26 mmol/L Normal 22-29 [facility] ([place] Comment on above: Performed By: #### B JULIO CESAR BROWN, BAKARI, GFR, CBC, ADIFF #### [address] [address] Creatinine [Mass/Vol] 0.70 mg/dL Normal 0.55-1.02 [facility] ([place]) Comment on above: Performed By: #### B JULIO CESAR BROWN, BAKARI, GFR, CBC, ADIFF #### [address] [address] Electrolyte Balance 11.0 mEq/L Normal 4.0-15.0 [facility] ([place]) Comment on above: Performed By: #### B JULIO CESAR BROWN, BAKARI, GFR, CBC, ADIFF #### [address] [address] Glucose [Mass/Vol] 126 mg/dL High 70-105 [facility] ([place]) Comment on above: Performed By: #### B JULIO CESAR BROWN, BAKARI, GFR, CBC, ADIFF #### [address] [address] Potassium [Moles/Vol] 4.5 mmol/L Normal 3.5-5.1 [facility] ([place]) Comment on above: Performed By: #### B JULIO CESAR BROWN, BAKARI, GFR, CBC, ADIFF #### [address] [address] Sodium [Moles/Vol] 141 mmol/L Normal 136-145 [facility] ([place]) Comment on above: Performed By: #### B JULIO CESAR BROWN, ANEU, GFR, CBC, ADIFF #### [address] [address] Urea nitrogen [Mass/Vol] 12 mg/dL Normal 7-18 [facility] ([place] Comment on above: Performed By: #### B JULIO CESAR BROWN, ANEU, GFR, CBC, ADIFF #### [place] [address] CBCon 12-04-2022 Erythrocyte distribution width (RBC) [Ratio] 14.4 % Normal 11.5-14.5 [facility] ([place]) Comment on above: Performed By: #### B JULIO CESAR BROWN, ANEU, GFR, CBC, ADIFF #### [place] [address] Hematocrit (Bld) [Volume fraction] 39.4 % Normal 37.0-47.0 [facility] ([place]) Comment on above: Performed By: #### B JULIO CESAR BROWN, BAKARI, GFR, CBC, ADIFF #### [place] [address] Hgb 13.1 G/dL Normal 12.0-16.0 [facility] ([place]) Comment on above: Performed By: #### B JULIO CESAR BROWN, BAKARI, GFR, CBC, ADIFF #### [place] [address] MCH (RBC) [Entitic mass] 29.2 pg Normal 27.0-31.2 [facility] ([place] Comment on above: Performed By: #### B JULIO CESAR BROWN, BAKARI, GFR, CBC, ADIFF #### [place] [address] MCHC 33.2 G/dL Normal 33.0-37.0 [facility] ([place] Comment on above: Performed By: #### B JULIO CESAR BROWN, BAKARI, GFR, CBC, ADIFF #### [place] [address] MCV (RBC) [Entitic vol] 87.9 fL Normal 80.0-94.0 A [facility] ([place]) Comment on above: Performed By: #### B JULIO CESAR BROWN, ANEU, GFR, CBC, ADIFF #### [address] [address] Platelet 373 10 3/mcL Normal 130-400 [facility] ([place]) Comment on above: Performed By: #### B JULIO CESAR BROWN, ANEU, GFR, CBC, ADIFF #### [place] [address] [place], [place] [address] Platelet mean volume (Bld) [Entitic vol] 7.2 fL Low 7.4-10.4 [facility] ([place]) Comment on above: Performed By: #### B JULIO CESAR BROWN, ANEU, GFR, CBC, ADIFF #### [address] [address] RBC 4.48 10 6/mcL Normal 4.20-5.40 [facility] ([place]) Comment on above: Performed By: #### B JULIO CESAR BROWN, ANEU, GFR, CBC, ADIFF #### [address] [address] WBC 9.7 10 3/mcL Normal 4.6-10.8 [facility] ([place]) Comment on above: Performed By: #### B JULIO CESAR BROWN, ANEU, GFR, CBC, ADIFF #### [address] [address] [address] HEAD OR BRAIN W/O CONTRAS Ton [...] 12/04/2022 7:24:52 PM Ordering Provider: DEB VÁSQUEZ [facility] ([place]) Glucose Glucometer (BldC) [M ass/Vol]Ordered By: Ozzy Bright on 11-23-2022 Glucose [Mass/Vol] 102 mg/dL 74-106 [facility] Comment on above: MANAGEMENT OF PATIEN T CARE PER NURSING PROTOCOL Basophil percentageOrdered B y: Ozzy Bright on 11-22-2022 Chloride [Moles/Vol] 109 mmol/L 98-107 [facility] Glucose [Mass/Vol] 89 mg/dL 74-106 [facility] Potassium [Moles/Vol] 3.8 mmol/L 3.5-5.1 [facility] Sodium [Moles/Vol] 139 mmol/L 136-145 [facility] Glucose Glucometer (BldC) [M ass/Vol]Ordered By: Ozzy Bright on 11-22-2022 Glucose [Mass/Vol] 73 mg/dL 74-106 [facility] Comment on above: MANAGEMENT OF PATIEN T CARE PER NURSING PROTOCOL Laboratory - Chemistry and C hemistry - challengeOrdered By: Ozzy Bright on 11-22-2022 CO2 [Moles/Vol] 25.0 mmol/L 21.0-32.0 [facility] Urea nitrogen/Creatinine [Mass ratio] 16.7 mg/mg - [facility] No Panel InformationOrdered By: Ozzy Bright on 11-22-2022 Estimated GFR (MDRD) Amer 140 mL/min >60 [facility] Comment on above: GFR Calc Estimated GFR (MDRD) Non-Af Amer 115 mL/min >60 [facility] Comment on above: Non- GFR Calc Serum or plasma calcium cherelle urement (mass/volume)Ordered By: Ozzy Bright on 11-22-2022 Calcium [Mass/Vol] 9.4 mg/dL 8.5-10.1 [facility] Serum or plasma creatinine m easurement (mass/volume)Ordered By: Ozzy Bright on 11-22-2022 Creatinine [Mass/Vol] 0.66 mg/dL 0.55-1.02 [facility] Comment on above: The validity of the calculated GFR & GFRAA in patients over 70 years has not been determined. Clinical correlation is essential. Serum or plasma urea nitroge n measurement (mass/volume)Ordered By: Ozzy Bright on 11-22-2022 Urea nitrogen [Mass/Vol] 11 mg/dL 7-18 [facility] Thin prep Papanicolaou smear with manual screeningOrdered By: Ozzy Bright on 11-22-2022 Thin prep Papanicolaou smear with manual screening 5 5-15 [facility] Cervical or vagninal specime n microscopic examination by cytology stain (reported asOrdered By: Zeus Miller on 10-03-2022 Cytology report Cyto stain Doc (Cvx/Vag) Comment . [facility] Comment on above: The Pap smear is a s creening test designed to aid in thedetection of premalignant and malignant conditions of theuterine cervix. It is not a diagnostic procedure andshould not be used as the sole means of detecting cervicalcancer. Both false-positive and false-negative reports dooccur. Laboratory - CytologyOrdered By: Zeus Miller on 10-03-2022 [employer] Technical Operator Cyto stain Nom (Cvx/Vag) [ID] Comment . [facility] Comment on above: Naina Pinedo, Cytot echnologist (ASCP) Laboratory - Miscellaneous t estsOrdered By: Zeus Miller on 10-03-2022 Service comment (Unsp spec) [Interp] Comment . [facility] Comment on above: This liquid based Th inPrep(R) pap test was screened withthe use of an image guided system. Service comment (Unsp spec) [Interp] . . [facility] No Panel InformationOrdered By: Zeus Miller on 08-15-2023 Human Papillomavirus Screen Comment . [facility] Comment on above: The HPV DNA reflex c adria were not met with this specimenresult therefore, no HPV testing was performed.Performed at: [address] [place] [id number] Director: Idalia Yoo MD, Phone: [phone] Pathology report final diagnosis Narrative Comment . [facility] Comment on above: NEGATIVE FOR INTRAEP ITHELIAL LESION OR MALIGNANCY. Basophil percentageOrdered B y: Andreas Oliva on 09-19-2022 Bilirubin [Mass/Vol] 0.80 mg/dL 0.20-1.00 [facility] Comment on above: For patients on eltr ombopag therapy, use of Dimension [place] TBIL is not recommended. Chloride [Moles/Vol] 108 mmol/L 98-107 [facility] Cholesterol [Mass/Vol] 232 mg/dL <200 [facility] Comment on above: <200 mg/dL Desirable 200-240 mg/dL Borderline >240 mg/dL High Risk Glucose [Mass/Vol] 94 mg/dL 74-106 [facility] Potassium [Moles/Vol] 4.5 mmol/L 3.5-5.1 [facility] Protein [Mass/Vol] 7.4 g/dL 6.4-8.2 [facility] Sodium [Moles/Vol] 138 mmol/L 136-145 [facility] Triglyceride [Mass/Vol] 215 mg/dL <199 [facility] Comment on above: The drugs N-Acetylcy steine and Metamizole may falsely depress this assay.Serum Triglycerides Reference Interval Normal <150 mg/dL Borderline high 150 - 199 mg/dL High 200 - 499 mg/dL Very High > or = 500 mg/dL WBC (Bld) [#/Vol] 8.5 10*3/uL 4.4-11.0 [facility] Blood erythrocytes count (nu mber/volume)Ordered By: Andreas Oliva on 09-19-2022 RBC (Bld) [#/Vol] 4.65 10*6/uL 4.2-5.4 [facility] Blood hemoglobin measurement (mass/volume)Ordered By: Andreas Oliva on 09-19-2022 Hemoglobin (Bld) [Mass/Vol] 13.6 g/dL 12.0-15.0 [facility] Blood platelet mean volumeOr dered By: Andreas Oliva on 09-19-2022 Platelet mean volume (Bld) [Entitic vol] 9.0 fL 6.2-12.0 [facility] Determination of erythrocyte mean corpuscular volume (MCV)Ordered By: Andreas Oliva on 09-19-2022 MCV (RBC) [Entitic vol] 88.4 fL 81-99 [facility] Hematocrit Auto (Bld) [Volum e fraction]Ordered By: Andreas Oliva on 09-19-2022 Hematocrit (Bld) [Volume fraction] 41.1 % 37-47 [facility] Laboratory - Chemistry and C hemistry - challengeOrdered By: Andreas Oliva on 09-19-2022 ALP [Catalytic activity/Vol] 75 U/L 45-117 [facility] ALT [Catalytic activity/Vol] 199 U/L 13-56 [facility] CO2 [Moles/Vol] 25.0 mmol/L 21.0-32.0 [facility] Cobalamin (Vitamin B12) [Mass/Vol] 1606 pg/mL 211-911 [facility] Free T4 [Mass/Vol] 1.12 ng/dL 0.76-1.46 [facility] Globulin (S) [Mass/Vol] 3.7 g/dL 2.2-4.2 [facility] Urea nitrogen/Creatinine [Mass ratio] 13.4 mg/mg 10-20 [facility] Laboratory - Hematology and Cell countsOrdered By: Andreas Oliva on 09-19-2022 Erythrocyte distribution width (RBC) [Entitic vol] 43.0 fL 35.1-43.9 [facility] Erythrocyte distribution width (RBC) [Ratio] 13.3 % 11.6-14.6 [facility] MCH (RBC) [Entitic mass] 29.2 pg 27.0-32.0 [facility] MCHC Auto (RBC) [Mass/Vol]Or dered By: Andreas Oliva on 09-19-2022 MCHC (RBC) [Mass/Vol] 33.1 g/dL 32-36 [facility] No Panel InformationOrdered By: Andreas Oliva on 09-19-2022 Estimated GFR (MDRD) Amer 109 mL/min >60 [facility] Comment on above: GFR Calc Estimated GFR (MDRD) Non-Af Amer 90 mL/min >60 [facility] Comment on above: Non- GFR Calc Thyroid Stimulating Hormone (TSH) 3.75 uIU/mL 0.358-3.74 [facility] Vitamin D 25-Hydroxy 16.1 ng/mL [facility] Comment on above: Vitamin D 25(OH) Sta tus Range Deficiency <20 ng/mL (50nmol/L) Insufficiency 20 - 30 ng/mL (50 - 75 nmol/L) Sufficiency 30 - 100 ng/mL (75 - 250 nmol/L) Toxicity >100 ng/mL (>250 nmol/L) Platelets bldOrdered By: Mello Oliva on 09-19-2022 Platelets (Bld) [#/Vol] 337 10*3/uL 150-450 [facility] Serum or plasma albumin cherelle urement (mass/volume)Ordered By: Andreas Oliva on 09-19-2022 Albumin [Mass/Vol] 3.7 g/dL 3.2-5.0 [facility] Serum or plasma albumin/glob ulin mass ratioOrdered By: Andreas Oliva on 09-19-2022 Albumin/Globulin [Mass ratio] 1.0 {ratio} 0.9-2.4 [facility] Serum or plasma calcium cherelle urement (mass/volume)Ordered By: Andreas Oliva on 09-19-2022 Calcium [Mass/Vol] 9.5 mg/dL 8.5-10.1 [facility] Serum or plasma cholesterol in HDL measurement (mass/volume)Ordered By: Andreas Oliva on 09-19-2022 Cholesterol in HDL [Mass/Vol] 33 mg/dL >40 [facility] Comment on above: The drugs N-Acetylcy steine and Metamizole may falsely depress this assay. Reference Range HDL <40 mg/dL Low HDL Cholesterol HDL >or= 60 mg/dL High HDL Cholesterol Serum or plasma cholesterol in VLDL measurement (mass/volume)Ordered By: Andreas Oliva on 09-19-2022 Cholesterol in VLDL [Mass/Vol] 43 mg/dL 5-40 [facility] Serum or plasma creatinine m easurement (mass/volume)Ordered By: Andreas Oliva on 09-19-2022 Creatinine [Mass/Vol] 0.82 mg/dL 0.55-1.02 [facility] Comment on above: The validity of the calculated GFR & GFRAA in patients over 70 years has not been determined. Clinical correlation is essential. Serum or plasma low density lipoprotein (LDL) cholesterol measurement (mass/volume)Ordered By: Andreas Oliva on 09-19-2022 Cholesterol in LDL [Mass/Vol] 156 mg/dL 0-130 [facility] Serum or plasma urea nitroge n measurement (mass/volume)Ordered By: Andreas Oliva on 09-19-2022 Urea nitrogen [Mass/Vol] 11 mg/dL 7-18 [facility] Thin prep Papanicolaou smear with manual screeningOrdered By: Andreas Oliva on 09-19-2022 Thin prep Papanicolaou smear with manual screening 94 U/L 15-37 [facility] Thin prep Papanicolaou smear with manual screening 5 5-15 [facility] Whole blood hemoglobin A1c/t otal hemoglobin ratio (mass fraction)Ordered By: Andreas Oliva on 09-19-2022 HbA1c (Bld) [Mass fraction] 6.7 % 3.8-5.6 [facility] Comment on above: Normal < 5.7 % Predi abetic 5.7 - 6.4 % Diabetic >or= 6.5 % Please note range changes. Absolute lymphocyte countOrd ered By: Dr. Etienne on 08-15-2022 Lymphocytes Auto (Unsp spec) [#/Vol] 2.71 10*3/uL 0.83-4.51 [facility] Basophil percentageOrdered B y: Dr. Etienne on 08-15-2022 Basophils/100 WBC (Bld) 0.5 % 0-1 [facility] Bilirubin [Mass/Vol] 0.40 mg/dL 0.20-1.00 [facility] Comment on above: For patients on eltr ombopag therapy, use of Dimension [place] TBIL is not recommended. Chloride [Moles/Vol] 109 mmol/L 98-107 [facility] Eosinophils/100 WBC (Bld) 1.8 % 0-5 [facility] Glucose [Mass/Vol] 121 mg/dL 74-106 [facility] Comment on above: Fasting Glucose resu lt from 100 to 125 mg/dL suggests IMPAIRED HOMEOSTASIS per A.D.A. criteria. Neutrophils (Bld) [#/Vol] 5.7 10*3/uL 2.0-7.7 [facility] Neutrophils/100 WBC (Bld) 59.6 % 47-70 [facility] Potassium [Moles/Vol] 3.9 mmol/L 3.5-5.1 [facility] Comment on above: Slight Hemolysis, Re sult may be falsely increased. Protein [Mass/Vol] 7.1 g/dL 6.4-8.2 [facility] Sodium [Moles/Vol] 140 mmol/L 136-145 [facility] WBC (Bld) [#/Vol] 9.6 10*3/uL 4.4-11.0 [facility] Basophil percentage 0-5 SEEN /hpf 0-5 [facility] Beta hCG serum qualOrdered B y: Dr. Etienne on 08-15-2022 Beta HCG ( test) Ql Negative [facility] Bilirubin Test strip Ql (U)O rdered By: Dr. Etienne on 08-15-2022 Bilirubin Ql (U) Negative Negative [facility] Blood erythrocytes count (nu mber/volume)Ordered By: Dr. Etienne on 08-15-2022 RBC (Bld) [#/Vol] 4.39 10*6/uL 4.2-5.4 [facility] Blood hemoglobin measurement (mass/volume)Ordered By: Dr. Etienne on 08-15-2022 Hemoglobin (Bld) [Mass/Vol] 12.6 g/dL 12.0-15.0 [facility] Blood lymphocytes/100 leukoc ytesOrdered By: Dr. Etienne on 08-15-2022 Lymphocytes/100 WBC (Bld) 28.3 % 19-41 [facility] Blood monocytes/100 leukocyt esOrdered By: Dr. Etienne on 08-15-2022 Monocytes/100 WBC (Bld) 9.2 % 0-10 [facility] Blood platelet mean volumeOr dered By: Dr. Etienne on 08-15-2022 Platelet mean volume (Bld) [Entitic vol] 9.0 fL 6.2-12.0 [facility] Determination of erythrocyte mean corpuscular volume (MCV)Ordered By: Dr. Etienne on 08-15-2022 MCV (RBC) [Entitic vol] 87.5 fL 81-99 [facility] Hematocrit Auto (Bld) [Volum e fraction]Ordered By: Dr. Etienne on 08-15-2022 Hematocrit (Bld) [Volume fraction] 38.4 % 37-47 [facility] Ketones Test strip Ql (U)Ord ered By: Dr. Etienne on 08-15-2022 Ketones Ql (U) Negative Negative [facility] Laboratory - Chemistry and C hemistry - challengeOrdered By: Dr. Etienne on 08-15-2022 ALP [Catalytic activity/Vol] 67 U/L 45-117 [facility] ALT [Catalytic activity/Vol] 128 U/L 13-56 [facility] CO2 [Moles/Vol] 25.0 mmol/L 21.0-32.0 [facility] Globulin (S) [Mass/Vol] 3.9 g/dL 2.2-4.2 [facility] Lipase [Catalytic activity/Vol] 45 U/L 13-75 [facility] Comment on above: Please note:LIPASE r evised reference range effective 22. New Lipase methodology. Expected to produce lower values than the previous assay method. NEW Reference Range: 13 - 75 U/L Urea nitrogen/Creatinine [Mass ratio] 16.2 mg/mg 10-20 [facility] Laboratory - Hematology and Cell countsOrdered By: Dr. Etienne on 08-15-2022 Erythrocyte distribution width (RBC) [Entitic vol] 43.6 fL 35.1-43.9 [facility] Erythrocyte distribution width (RBC) [Ratio] 13.5 % 11.6-14.6 [facility] Immature granulocytes/100 WBC (Bld) 0.600 % 0.0-0.9 [facility] Comment on above: IG% - Immature Granu locytes (promyelocytes, myelocytes and metamyelocytes) > 1% indicates that a LEFT SHIFT is Present. MCH (RBC) [Entitic mass] 28.7 pg 27.0-32.0 [facility] Nucleated RBC/100 WBC (Bld) [Ratio] 0 % 0-5 [facility] MCHC Auto (RBC) [Mass/Vol]Or dered By: Dr. Etienne on 08-15-2022 MCHC (RBC) [Mass/Vol] 32.8 g/dL 32-36 [facility] Mucus LM Ql (Urine sed)Order ed By: Dr. Etienne on 08-15-2022 Mucus Ql (Urine sed) 0 SEEN /hpf [facility] Nitrite Test strip Ql (U)Ord ered By: Dr. Etienne on 08-15-2022 Nitrite Ql (U) Negative Negative [facility] No Panel InformationOrdered By: Dr. Etienne on 08-15-2022 Estimated Creatinine Clearance Calc 122.99 ml/min [facility] Estimated GFR (MDRD) Amer 135 mL/min >60 [facility] Comment on above: GFR Calc Estimated GFR (MDRD) Non-Af Amer 112 mL/min >60 [facility] Comment on above: Non- GFR Calc [place] Level 0.60 mmol/L 0.60-1.20 [facility] Platelets bldOrdered By: Dr. Etienne on 08-15-2022 Platelets (Bld) [#/Vol] 311 10*3/uL 150-450 [facility] Protein Test strip Ql (U)Ord ered By: Dr. Etienne on 08-15-2022 Protein Ql (U) 15 mg/dl Negative [facility] Serum or plasma albumin cherelle urement (mass/volume)Ordered By: Dr. Etienne on 08-15-2022 Albumin [Mass/Vol] 3.2 g/dL 3.2-5.0 [facility] Serum or plasma albumin/glob ulin mass ratioOrdered By: Dr. Etienne on 08-15-2022 Albumin/Globulin [Mass ratio] 0.8 {ratio} 0.9-2.4 [facility] Serum or plasma calcium cherelle urement (mass/volume)Ordered By: Dr. Etienne on 08-15-2022 Calcium [Mass/Vol] 9.0 mg/dL 8.5-10.1 [facility] Serum or plasma creatinine m easurement (mass/volume)Ordered By: Dr. Etienne on 08-15-2022 Creatinine [Mass/Vol] 0.68 mg/dL 0.55-1.02 [facility] Comment on above: The validity of the calculated GFR & GFRAA in patients over 70 years has not been determined. Clinical correlation is essential. Serum or plasma urea nitroge n measurement (mass/volume)Ordered By: Dr. Etienne on 08-15-2022 Urea nitrogen [Mass/Vol] 11 mg/dL 7-18 [facility] Squamous epithelial cells de tection in urine sediment by light microscopyOrdered By: Dr. Etienne on 08-15-2022 Epithelial cells.squamous LM Ql (Urine sed) 0-5 SEEN /hpf 5-10 [facility] Thin prep Papanicolaou smear with manual screeningOrdered By: Dr. Etienne on 08-15-2022 Thin prep Papanicolaou smear with manual screening 49 U/L 15-37 [facility] Comment on above: Slight Hemolysis, Re sult may be falsely increased. Thin prep Papanicolaou smear with manual screening 6 5-15 [facility] Urine blood detectionOrdered By: Dr. Etienne on 08-15-2022 RBC Ql (U) Negative Negative [facility] RBC Ql (U) 0 SEEN /hpf 0-5 [facility] Urine clarityOrdered By: Dr. Etienne on 08-15-2022 Clarity (U) Sl. Cloudy Clear [facility] Urine color determinationOrd ered By: Dr. Etienne on 08-15-2022 Color (U) Yellow Yellow [facility] Urine glucose detectionOrder ed By: Dr. Etienne on 08-15-2022 Glucose Ql (U) Normal mg/dl Normal [facility] Urine leukocyte esterase det ection by dipstickOrdered By: Dr. Etienne on 08-15-2022 Leukocyte esterase Test strip Ql (U) 25 /ul Negative [facility] Urine pHOrdered By: Dr. Michael jacinto on 08-15-2022 pH (U) 6.0 [pH] 5.0 - 8.0 [facility] Urine sediment bacteria coun t by microscopy (number/high power field)Ordered By: Dr. Etienne on 08-15-2022 Bacteria LM.HPF (Urine sed) [#/Area] 1 /[HPF] None Seen [facility] Urine specific gravity measu rementOrdered By: Dr. Etienne on 08-15-2022 Specific gravity (U) [Rel density] 1.020 1.002-1.030 [facility] Urobilinogen Auto test strip Ql (U)Ordered By: Dr. Etienne on 08-15-2022 Urobilinogen Ql (U) Normal mg/dl Normal [facility] Beta hCG serum qualOrdered B y: Dr. Dutta on 08-08-2022 Beta HCG ( test) Ql Negative [facility] Thin prep Papanicolaou smear with manual screeningOrdered By: Zeus Miller on 03-03-2022 Genital Culture Streptococcus agalac tiae (B) [facility] Gram stain for investigation of transfusion reactionOrdered By: Zeus Miller on 03-01-2022 Microscopic observation Gram stain Nom (Unsp spec) [facility] Laboratory - Chemistry and C hemistry - challengeOrdered By: Zeus Miller on 02-28-2022 Free T4 [Mass/Vol] 1.05 ng/dL 0.76-1.46 [facility] No Panel InformationOrdered By: Zeus Miller on 02-28-2022 Dehydroepiandrosterone Sulfate 130.0 ug/dL 84.8-378.0 [facility] No Panel InformationOrdered By: Karina Guerra on 02-28-2022 [place] Level 0.80 mmol/L 0.60-1.20 [facility] Thyroid Stimulating Hormone (TSH) 3.69 uIU/mL 0.358-3.74 [facility] Serum or plasma 17-hydroxypr ogesterone measurement (mass/volume)Ordered By: Zeus Miller on 02-28-2022 17-Hydroxyprogesterone [Mass/Vol] 61 ng/dL . [facility] Comment on above: Adult Female Follicu lar 15 - 70 Luteal 35 - 290Performed at: - [facility] [id number] Director: Harsh Harris MD, Phone: [phone] Serum or plasma testosterone free measurement (mass/volume)Ordered By: Zeus Miller on 02-28-2022 Testosterone Free [Mass/Vol] 2.8 pg/mL 0.0-4.2 [facility] Serum or plasma thyroperoxid ase antibody assay (units/volume)Ordered By: Zeus Miller on 02-28-2022 TPO Ab Qn [IU]/mL 0-34 [facility] Comment on above: Performed at: [facility] [address] [id number] Director: Neeraj Marte PhD, Phone: [phone] at: [employer] [id number] Director: Harsh Harris MD, Phone: [phone] No Panel InformationOrdered By: Andreas Oliva on 02-17-2022 Stool Calprotectin 137 ug/g 0-120 [facility] Comment on above: Concentration Interp retation Follow-Up<16 - 50 ug/g Normal None>50 -120 ug/g Borderline Re-evaluate in 4-6 weeks >120 ug/g Abnormal Repeat as clinically indicatedPerformed at: [facility] [id number] Director: Harsh Harris MD, Phone: [phone] Stool Pancreatic Elastase 329 >200 [facility] Comment on above: Result Units: ug Graciela st./g Severe Pancreatic Insufficiency: <100 Moderate Pancreatic Insufficiency: 100 - 200 Normal: >200Performed at: [employer] [id number] Director: Harsh Harris MD, Phone: [phone] Stool lactoferrin detection by immunoassayOrdered By: Andreas Oliva on 02-17-2022 Lactoferrin IA Ql (Stl) [facility] Absolute lymphocyte countOrd ered By: Andreas Oliva on 02-15-2022 Lymphocytes Auto (Unsp spec) [#/Vol] 2.13 10*3/uL 0.83-4.51 [facility] Albumin Elph [Mass/Vol]Order ed By: Andreas Oliva on 02-15-2022 Albumin [Mass/Vol] 3.6 g/dL 2.9-4.4 [facility] Atypical perinuclear antineu trophil cytoplasmic antibodies measurementOrdered By: Andreas Oliva on 02-15-2022 Neutrophil cytoplasmic Ab.perinuclear.atypical IF (S) [Titer] <1:20 titer Neg:<1:20 [facility] Comment on above: The atypical pANCA p attern has been observed in asignificant percentage of patients with ulcerative colitis,primary sclerosing cholangitis and autoimmune hepatitis. Basophil percentageOrdered B y: Andreasmoreno Oliva on 02-15-2022 Ammonia (P) [Moles/Vol] 20.0 umol/L 11-32 [facility] Basophil percentage < 0.2 AI 0.0-0.9 [facility] Basophils/100 WBC (Bld) 0.5 % 0-1 [facility] Bilirubin [Mass/Vol] 0.40 mg/dL 0.20-1.00 [facility] Comment on above: For patients on eltr ombopag therapy, use of Dimension [place] TBIL is not recommended. Chloride [Moles/Vol] 109 mmol/L 98-107 [facility] Eosinophils/100 WBC (Bld) 2.3 % 0-5 [facility] Glucose [Mass/Vol] 112 mg/dL 74-106 [facility] Comment on above: Fasting Glucose resu lt from 100 to 125 mg/dL suggests IMPAIRED HOMEOSTASIS per A.D.A. criteria. LDH [Catalytic activity/Vol] 187 U/L 84-246 [facility] Neutrophils (Bld) [#/Vol] 4.4 10*3/uL 2.0-7.7 [facility] Neutrophils/100 WBC (Bld) 60.9 % 47-70 [facility] Potassium [Moles/Vol] 4.4 mmol/L 3.5-5.1 [facility] Protein [Mass/Vol] 7.4 g/dL 6.4-8.2 [facility] Sodium [Moles/Vol] 137 mmol/L 136-145 [facility] WBC (Bld) [#/Vol] 7.3 10*3/uL 4.4-11.0 [facility] Blood erythrocytes count (nu mber/volume)Ordered By: Andreas Oliva on 02-15-2022 RBC (Bld) [#/Vol] 4.35 10*6/uL 4.2-5.4 [facility] Blood hemoglobin measurement (mass/volume)Ordered By: Andreas Oliva on 02-15-2022 Hemoglobin (Bld) [Mass/Vol] 12.9 g/dL 12.0-15.0 [facility] Blood lymphocytes/100 leukoc ytesOrdered By: Andreas Oliva on 02-15-2022 Lymphocytes/100 WBC (Bld) 29.1 % 19-41 [facility] Blood monocytes/100 leukocyt esOrdered By: Andreas Oliva on 02-15-2022 Monocytes/100 WBC (Bld) 6.8 % 0-10 [facility] Blood platelet mean volumeOr dered By: Andreas Oliva on 02-15-2022 Platelet mean volume (Bld) [Entitic vol] 8.9 fL 6.2-12.0 [facility] Determination of erythrocyte mean corpuscular volume (MCV)Ordered By: Andreas Oliva on 02-15-2022 MCV (RBC) [Entitic vol] 91.3 fL 81-99 [facility] Erythrocyte sedimentation ra teOrdered By: Andreas Oliva on 02-15-2022 ESR (Bld) [Velocity] 28 mm/h 0-30 [facility] HIV 1 and HIV-2 antibody ass ay with HIV-1 p24 antigen detectionOrdered By: Andreas Oliva on 02-15-2022 HIV 1+2 Ab+HIV1 p24 Ag IA Ql Non-Reactive Nonreactive [facility] Hematocrit Auto (Bld) [Volum e fraction]Ordered By: Andreas Oliva on 02-15-2022 Hematocrit (Bld) [Volume fraction] 39.7 % 37-47 [facility] INR in Blood by Coagulation assayOrdered By: Andreas Oliva on 02-15-2022 INR Coag (Bld) [Relative time] 1.1 {INR} [facility] Interpretation of serum or p lasma protein pattern by immunofixation (narrative resultOrdered By: Andreas Oliva on 02-15-2022 Protein Fractions Immunofixation [place] [Interp] See comment [facility] Comment on above: Result: Not Observed Laboratory - Chemistry and C hemistry - challengeOrdered By: Andreas Oliva on 02-15-2022 ALP [Catalytic activity/Vol] 52 U/L 45-117 [facility] ALT [Catalytic activity/Vol] 92 U/L 13-56 [facility] CO2 [Moles/Vol] 24.0 mmol/L 21.0-32.0 [facility] Urea nitrogen/Creatinine [Mass ratio] 19.9 mg/mg 10-20 [facility] Laboratory - CoagulationOrde red By: Andreas Oliva on 02-15-2022 PT Coag (PPP) [Time] 13.7 s 11.7-14.9 [facility] Laboratory - Hematology and Cell countsOrdered By: Andreas Oliva on 02-15-2022 Erythrocyte distribution width (RBC) [Entitic vol] 43.8 fL 35.1-43.9 [facility] Erythrocyte distribution width (RBC) [Ratio] 12.9 % 11.6-14.6 [facility] Immature granulocytes/100 WBC (Bld) 0.400 % 0.0-0.9 [facility] Comment on above: IG% - Immature Granu locytes (promyelocytes, myelocytes and metamyelocytes) > 1% indicates that a LEFT SHIFT is Present. MCH (RBC) [Entitic mass] 29.7 pg 27.0-32.0 [facility] Nucleated RBC/100 WBC (Bld) [Ratio] 0 % 0-5 [facility] MCHC Auto (RBC) [Mass/Vol]Or dered By: Andreas Oliva on 02-15-2022 MCHC (RBC) [Mass/Vol] 32.5 g/dL 32-36 [facility] No Panel InformationOrdered By: Andreas Oliva on 02-15-2022 Addendum Document Comment . [facility] Comment on above: Protein electrophore sis scan will follow via computer,mail, or emergency department manager delivery. Centromere B Antibody <0.2 AI 0.0-0.9 [facility] Ceruloplasmin 26.2 mg/dL 19.0-39.0 [facility] Endomysial IgA Antibody Negative Negative [facility] Estimated GFR (MDRD) Amer 130 mL/min >60 [facility] Comment on above: GFR Calc Estimated GFR (MDRD) Non-Af Amer 107 mL/min >60 [facility] Comment on above: Non- GFR Calc Haptoglobin 219 mg/dL 33-278 [facility] Comment on above: Performed at: - [address] [employer] [id number] Director: Neeraj Marte PhD, Phone: [phone] at: [address] [id number] Director: Harsh Harris MD, Phone: [phone] Hepatitis A IgM Antibody Negative Negative [facility] Hepatitis B Core IgM Antibody Negative Negative [facility] Hepatitis C Antibody (EIA) 0.1 s/co ratio 0.0-0.9 [facility] Hepatitis C Antibody Comment Comment . [facility] Comment on above: NegativeNot infected with HCV, unless recent infection issuspected or other evidence exists to indicate HCVinfection. Immunoglobulin E 18 IU/mL 6-495 [facility] Miscellaneous Test See comment [facility] Comment on above: TEST RESULT LIMITSIB [...] developed and its performance characteristics determined by [facility]. It has not been cleared or approved by the Food and Drug Administration. The FDA has determined that such clearance or approval is not necessary.Atypical pANCA Negative Negative Comments Abnormal Suggestive of Crohn's Disease. Pattern is not conclusive for disease behavior risk stratification. TESTING PERFORMED AT [facility]. ORIGINAL REPORT ON FILE IN LAB CONTAINS ADDITIONAL TEST SITE INFORMATION. CHILLER TECHNICIAN Antibody <0.2 AI 0.0-0.9 [facility] No Panel InformationOrdered By: Zeus Miller on 02-15-2022 Follicle Stimulating Hormone 3.8 mIU/mL [facility] Comment on above: NORMAL REFERENCE RAN GES FEMALE FOLLICULAR 2.3 - 12.6 mIU/mL MID-CYCLE PEAK 5.2 - 17.5 mIU/mL LUTEAL 1.7 - 12.9 mIU/mL POST-MENOPAUSAL ON MHT 5.9 - 72.8 mIU/mL NOT ON MHT 12.7 - 132.2 mlU/mL MALE 0.7 - 10.8 mIU/mL Platelets bldOrdered By: Mello Oliva on 02-15-2022 Platelets (Bld) [#/Vol] 367 10*3/uL 150-450 [facility] Serum DNA double strand anti body assay (units/volume)Ordered By: Andreas Oliva on 02-15-2022 DNA double strand Ab Qn (S) 1 [IU]/mL 0-9 [facility] Comment on above: Negative <5 Equivoca l 5 - 9 Positive >9 Serum Gabriella-1 antibody assay (u nits/volume)Ordered By: Andreas Oliva on 02-15-2022 Gabriella-1 extractable nuclear Ab Qn (S) <0.2 AI 0.0-0.9 [facility] Serum Scl-70 extractable nuc lear antibody assay (units/volume)Ordered By: Andreas Oliva on 02-15-2022 SCL-70 extractable nuclear Ab Qn (S) <0.2 AI 0.0-0.9 [facility] Serum Dykes extractable nucl ear antibody detectionOrdered By: Andreas Oliva on 02-15-2022 Dykes extractable nuclear Ab Ql (S) <0.2 AI 0.0-0.9 [facility] Serum [id number] measu rement by electrophoresisOrdered By: Andreas Oliva on 02-15-2022 Alpha 1 globulin Elph [Mass/Vol] 0.2 g/dL 0.0-0.4 [facility] Alpha 1 globulin Elph [Mass/Vol] 0.9 g/dL 0.4-1.0 [facility] Serum classic neutrophil cyt oplasmic antibody assay (units/volume)Ordered By: Andreas Oliva on 02-15-2022 Neutrophil cytoplasmic Ab.classic Qn (S) <1:20 titer Neg:<1:20 [facility] Serum globulin measurement ( mass/volume)Ordered By: Andreas Oliva on 02-15-2022 Globulin (S) [Mass/Vol] 3.4 g/dL 2.2-3.9 [facility] Serum mitochondria antibody detectionOrdered By: Andreas Oliva on 02-15-2022 Mitochondria Ab Ql (S) <20.0 Units 0.0-20.0 [facility] Comment on above: Negative 0.0 - 20.0 Equivocal 20.1 - 24.9 Positive >24.9Mitochondrial (M2) Antibodies are found in 90-96% ofpatients with primary biliary cirrhosis.Performed at: [facility] [employer] [id number] Director: Neeraj Marte PhD, Phone: [phone] Serum or plasma C reactive p rotein measurement (mass/volume)Ordered By: Andreas Oliva on 02-15-2022 CRP [Mass/Vol] 4.50 mg/L 0.0-3.0 [facility] Comment on above: C-Reactive Protein ( CRP) provides useful information for thediagnosis, therapy and monitoring of inflammatory processesand associated diseases. For the evaluation of Relative Riskfor Cardiovascular Disease, a High Sensitivity CRP (HSCRP)should be ordered. Serum or plasma IgA measurem ent (mass/volume)Ordered By: Andreas Oliva on 02-15-2022 IgA [Mass/Vol] 163 mg/dL 87-352 [facility] Serum or plasma IgG measurem ent (mass/volume)Ordered By: Andreasneal Oliva on 02-15-2022 IgG [Mass/Vol] 972 mg/dL [phone] [facility] Serum or plasma IgM measurem ent (mass/volume)Ordered By: Andreasadalgisa Oliva on 02-15-2022 IgM [Mass/Vol] 115 mg/dL 26-217 [facility] Serum or plasma actin IgG an tibody assay (units/volume)Ordered By: Andreas Oliva on 02-15-2022 Actin IgG Qn 9 Units 0-19 [facility] Comment on above: Negative 0 - 19 Weak positive 20 - 30 Moderate to strong positive >30 Actin Antibodies are found in 52-85% of patients with autoimmune hepatitis or chronic active hepatitis and in 22% of patients with primary biliary cirrhosis. Serum or plasma albumin cherelle urement (mass/volume)Ordered By: Andreas Oliva on 02-15-2022 Albumin [Mass/Vol] 3.5 g/dL 3.2-5.0 [facility] Serum or plasma albumin/glob ulin mass ratioOrdered By: Andreas Oliva on 02-15-2022 Albumin/Globulin [Mass ratio] 0.9 {ratio} 0.9-2.4 [facility] Serum or plasma [id number] protein tumor marker measurement (units/volume)Ordered By: Andreas Oliva on 02-15-2022 AFP.tumor marker Qn < 1.8 ng/mL 0.0-4.7 [facility] Comment on above: [facility] El ectrochemiluminescence Immunoassay(ECLIA)Values obtained with different assay methods or kits cannotbe used interchangeably. Results cannot be interpreted asabsolute evidence of the presence or absence of malignantdisease.This test is not interpretable in females. Serum or plasma angiotensin converting enzyme measurement (enzymatic activity/volume)Ordered By: Andreasneal Oliva on 02-15-2022 Angiotensin converting enzyme [Catalytic activity/Vol] 31 U/L 82 [facility] Serum or plasma beta globuli n measurement by electrophoresis (mass/volume)Ordered By: Andreas Oliva on 02-15-2022 Beta globulin Elph [Mass/Vol] 1.2 g/dL 0.7-1.3 [facility] Serum or plasma calcium cherelle urement (mass/volume)Ordered By: Andreas Oliva on 02-15-2022 Calcium [Mass/Vol] 9.1 mg/dL 8.5-10.1 [facility] Serum or plasma creatinine m easurement (mass/volume)Ordered By: Andreas Oliva on 02-15-2022 Creatinine [Mass/Vol] 0.70 mg/dL 0.55-1.02 [facility] Comment on above: The validity of the calculated GFR & GFRAA in patients over 70 years has not been determined. Clinical correlation is essential. Serum or plasma estradiol (E 2) measurement (mass/volume)Ordered By: Zeus Miller on 02-15-2022 E2 [Mass/Vol] 42.6 pg/mL [facility] Comment on above: NORMAL REFERENCE RAN [...] Oliva on 02-15-2022 Ferritin [Mass/Vol] 138 ng/mL 8- [facility] Serum or plasma gamma globul in measurement by electrophoresis (mass/volume)Ordered By: Andreas Oliva on 02-15-2022 Gamma globulin Elph [Mass/Vol] 1.1 g/dL 0.4-1.8 [facility] Serum or plasma hepatitis B virus surface antigen detection by immunoassayOrdered By: Andreas Oliva on 02-15-2022 HBV surface Ag IA Ql Negative Negative [facility] Serum or plasma immunoelectr ophoresis interpretation (nominal result)Ordered By: Andreas Oliva on 02-15-2022 Interpretation IEP [Interp] Comment . [facility] Comment on above: No monoclonality det ected. Serum or plasma prolactin me asurement (mass/volume)Ordered By: Zeus Miller on 02-15-2022 Prolactin [Mass/Vol] 9.0 ng/mL [facility] Comment on above: NORMAL REFERENCE RAN GES FEMALE NON- 2.2 - 30.3 ng/mL 8.1 - 347.6 ng/mL POST-MENOPAUSAL 0.7 - 31.5 ng/mL MALE 2.5 - 17.4 ng/mL Serum or plasma urea nitroge n measurement (mass/volume)Ordered By: Andreas Oliva on 02-15-2022 Urea nitrogen [Mass/Vol] 14 mg/dL 7-18 [facility] Serum perinuclear neutrophil cytoplasmic antibody titer by immunofluorescenceOrdered By: Andreas Oliva on 02-15-2022 Neutrophil cytoplasmic Ab.perinuclear IF (S) [Titer] <1:20 titer Neg:<1:20 [facility] Comment on above: The presence of posi tive fluorescence exhibiting P-ANCA orC-ANCA patterns alone is not specific for the diagnosis ofWegener's Granulomatosis (WG) or microscopic polyangiitis.Decisions about treatment should not be based solely onANCA IFA results. The [employer] ANCA Group Consensusrecommends follow up testing of positive sera with both UT-3 and MPO-ANCA enzyme immunoassays. As many as 5% serumsamples are positive only by EIA. Ref. AM J Clin Vldzks7843;111:507-513. Serum tissue transglutaminas e IgA antibody assay (units/volume)Ordered By: Andreas Oliva on 02-15-2022 tTG IgA Qn (S) <2 U/mL 0-3 [facility] Comment on above: Negative 0 - 3 Weak Positive 4 - 10 Positive >10 Tissue Transglutaminase (tTG) has been identified as the endomysial antigen. Studies have demonstr- ated that endomysial IgA antibodies have over 99% specificity for gluten sensitive enteropathy. Thin prep Papanicolaou smear with manual screeningOrdered By: Andreas Oliva on 02-15-2022 Thin prep Papanicolaou smear with manual screening 33 U/L 15-37 [facility] Thin prep Papanicolaou smear with manual screening 4 5-15 [facility] Thin prep Papanicolaou smear with manual screening 1.1 0.7-1.7 [facility] Thin prep Papanicolaou smear with manual screening 128 ug/dL 80-158 [facility] Comment on above: Detection Limit = 5 Total protein bloodOrdered B y: Andreas Oliva on 02-15-2022 Protein [Mass/Vol] 7.0 g/dL 6.0-8.5 [facility] Whole blood hemoglobin A1c/t otal hemoglobin ratio (mass fraction)Ordered By: Andreas Oliva on 02-15-2022 HbA1c (Bld) [Mass fraction] 5.9 % 3.8-5.6 [facility] Comment on above: Normal < 5.7 % Predi abetic 5.7 - 6.4 % Diabetic >or= 6.5 % Please note range changes. Laboratory - Chemistry and C hemistry - challengeOrdered By: [facility] on 01-31-2022 Free T4 [Mass/Vol] 1.04 ng/dL 0.76-1.46 [facility] No Panel InformationOrdered By: [facility] on 01-31-2022 Thyroid Stimulating Hormone (TSH) 4.77 uIU/mL 0.358-3.74 [facility] Ova and parasitesOrdered By: Dr. Angelo on 01-27-2022 Ova and parasites identified LM Nom (Unsp spec) [facility] Absolute lymphocyte countOrd ered By: Dr. Angelo on 01-24-2022 Lymphocytes Auto (Unsp spec) [#/Vol] 2.71 10*3/uL 0.83-4.51 [facility] Basophil percentageOrdered B y: Dr. Angelo on 01-24-2022 Basophils/100 WBC (Bld) 0.6 % 0-1 [facility] Bilirubin [Mass/Vol] 0.50 mg/dL 0.20-1.00 [facility] Comment on above: For patients on eltr ombopag therapy, use of Dimension [place] TBIL is not recommended. Chloride [Moles/Vol] 109 mmol/L 98-107 [facility] Eosinophils/100 WBC (Bld) 2.9 % 0-5 [facility] Glucose [Mass/Vol] 114 mg/dL 74-106 [facility] Comment on above: Fasting Glucose resu lt from 100 to 125 mg/dL suggests IMPAIRED HOMEOSTASIS per A.D.A. criteria. Lactate [Moles/Vol] 0.8 mmol/L 0.4-2.0 [facility] Neutrophils (Bld) [#/Vol] 4.8 10*3/uL 2.0-7.7 [facility] Neutrophils/100 WBC (Bld) 56.1 % 47-70 [facility] Potassium [Moles/Vol] 3.8 mmol/L 3.5-5.1 [facility] Protein [Mass/Vol] 7.3 g/dL 6.4-8.2 [facility] Sodium [Moles/Vol] 137 mmol/L 136-145 [facility] WBC (Bld) [#/Vol] 8.6 10*3/uL 4.4-11.0 [facility] Basophil percentage 0-5 SEEN /hpf 0-5 [facility] Bilirubin Test strip Ql (U)O rdered By: Dr. Angelo on 01-24-2022 Bilirubin Ql (U) Negative Negative [facility] Blood erythrocytes count (nu mber/volume)Ordered By: Dr. Angelo on 01-24-2022 RBC (Bld) [#/Vol] 4.14 10*6/uL 4.2-5.4 [facility] Blood hemoglobin measurement (mass/volume)Ordered By: Dr. Angelo on 01-24-2022 Hemoglobin (Bld) [Mass/Vol] 12.4 g/dL 12.0-15.0 [facility] Blood lymphocytes/100 leukoc ytesOrdered By: Dr. Angelo on 01-24-2022 Lymphocytes/100 WBC (Bld) 31.5 % 19-41 [facility] Blood monocytes/100 leukocyt esOrdered By: Dr. Angelo on 01-24-2022 Monocytes/100 WBC (Bld) 8.6 % 0-10 [facility] Blood platelet mean volumeOr dered By: Dr. Angelo on 01-24-2022 Platelet mean volume (Bld) [Entitic vol] 9.0 fL 6.2-12.0 [facility] Determination of erythrocyte mean corpuscular volume (MCV)Ordered By: Dr. Angelo on 01-24-2022 MCV (RBC) [Entitic vol] 91.5 fL 81-99 [facility] Hematocrit Auto (Bld) [Volum e fraction]Ordered By: Dr. Angelo on 01-24-2022 Hematocrit (Bld) [Volume fraction] 37.9 % 37-47 [facility] Ketones Test strip Ql (U)Ord ered By: Dr. Angelo on 01-24-2022 Ketones Ql (U) 5 mg/dl Negative [facility] Laboratory - Chemistry and C hemistry - challengeOrdered By: Dr. Angelo on 01-24-2022 ALP [Catalytic activity/Vol] 57 U/L 45-117 [facility] ALT [Catalytic activity/Vol] 160 U/L 13-56 [facility] CO2 [Moles/Vol] 24.0 mmol/L 21.0-32.0 [facility] Globulin (S) [Mass/Vol] 3.7 g/dL 2.2-4.2 [facility] Lipase [Catalytic activity/Vol] 144 U/L 73-393 [facility] Urea nitrogen/Creatinine [Mass ratio] 18.6 mg/mg 10-20 [facility] HCG ( test) Ql (U) Negative [facility] Comment on above: Very dilute urine sp ecimens, as indicated by a low specificgravity, may not contain business banking representative levels of hCG. If is still suspected, a first morning urinespecimen should be collected 48 hours later and tested. Laboratory - Hematology and Cell countsOrdered By: Dr. Angelo on 01-24-2022 Erythrocyte distribution width (RBC) [Entitic vol] 44.2 fL 35.1-43.9 [facility] Erythrocyte distribution width (RBC) [Ratio] 13.2 % 11.6-14.6 [facility] Immature granulocytes/100 WBC (Bld) 0.300 % 0.0-0.9 [facility] Comment on above: IG% - Immature Granu locytes (promyelocytes, myelocytes and metamyelocytes) > 1% indicates that a LEFT SHIFT is Present. MCH (RBC) [Entitic mass] 30.0 pg 27.0-32.0 [facility] Nucleated RBC/100 WBC (Bld) [Ratio] 0 % 0-5 [facility] MCHC Auto (RBC) [Mass/Vol]Or dered By: Dr. Angelo on 01-24-2022 MCHC (RBC) [Mass/Vol] 32.7 g/dL 32-36 [facility] Mucus LM Ql (Urine sed)Order ed By: Dr. Angelo on 01-24-2022 Mucus Ql (Urine sed) 0 SEEN /hpf [facility] Nitrite Test strip Ql (U)Ord ered By: Dr. Angelo on 01-24-2022 Nitrite Ql (U) Negative Negative [facility] No Panel InformationOrdered By: Dr. Angelo on 01-24-2022 Estimated Creatinine Clearance Calc 97.24 ml/min [facility] Estimated GFR (MDRD) Amer 104 mL/min >60 [facility] Comment on above: GFR Calc Estimated GFR (MDRD) Non-Af Amer 86 mL/min >60 [facility] Comment on above: Non- GFR Calc Platelets bldOrdered By: Dr. Angelo on 01-24-2022 Platelets (Bld) [#/Vol] 328 10*3/uL 150-450 [facility] Protein Test strip Ql (U)Ord ered By: Dr. Angelo on 01-24-2022 Protein Ql (U) 30 mg/dl Negative [facility] Serum or plasma albumin cherelle urement (mass/volume)Ordered By: Dr. Angelo on 01-24-2022 Albumin [Mass/Vol] 3.6 g/dL 3.2-5.0 [facility] Serum or plasma albumin/glob ulin mass ratioOrdered By: Dr. Angelo on 01-24-2022 Albumin/Globulin [Mass ratio] 1.0 {ratio} 0.9-2.4 [facility] Serum or plasma calcium cherelle urement (mass/volume)Ordered By: Dr. Angelo on 01-24-2022 Calcium [Mass/Vol] 9.0 mg/dL 8.5-10.1 [facility] Serum or plasma creatinine m easurement (mass/volume)Ordered By: Dr. Angelo on 01-24-2022 Creatinine [Mass/Vol] 0.86 mg/dL 0.55-1.02 [facility] Comment on above: The validity of the calculated GFR & GFRAA in patients over 70 years has not been determined. Clinical correlation is essential. Serum or plasma urea nitroge n measurement (mass/volume)Ordered By: Dr. Angelo on 01-24-2022 Urea nitrogen [Mass/Vol] 16 mg/dL 7-18 [facility] Squamous epithelial cells de tection in urine sediment by light microscopyOrdered By: Dr. Angelo on 01-24-2022 Epithelial cells.squamous LM Ql (Urine sed) 0-5 SEEN /hpf 5-10 [facility] Thin prep Papanicolaou smear with manual screeningOrdered By: Dr. Angelo on 01-24-2022 Thin prep Papanicolaou smear with manual screening 63 U/L 15-37 [facility] Thin prep Papanicolaou smear with manual screening 4 5-15 [facility] Urine blood detectionOrdered By: Dr. Angelo on 01-24-2022 RBC Ql (U) 10 /ul Negative [facility] RBC Ql (U) 0-5 SEEN /hpf 0-5 [facility] Urine clarityOrdered By: Dr. Angelo on 01-24-2022 Clarity (U) Sl. Cloudy Clear [facility] Urine color determinationOrd ered By: Dr. Angelo on 01-24-2022 Color (U) Yellow Yellow [facility] Urine glucose detectionOrder ed By: Dr. Angelo on 01-24-2022 Glucose Ql (U) Normal mg/dl Normal [facility] Urine leukocyte esterase det ection by dipstickOrdered By: Dr. Angelo on 01-24-2022 Leukocyte esterase Test strip Ql (U) 25 /ul Negative [facility] Urine pHOrdered By: Dr. Rosa foster on 01-24-2022 pH (U) 5.0 [pH] 5.0 - 8.0 [facility] Urine sediment bacteria coun t by microscopy (number/high power field)Ordered By: Dr. Angelo on 01-24-2022 Bacteria LM.HPF (Urine sed) [#/Area] 1 /[HPF] None Seen [facility] Urine specific gravity measu rementOrdered By: Dr. Angelo on 01-24-2022 Specific gravity (U) [Rel density] 1.025 1.002-1.030 [facility] Urobilinogen Auto test strip Ql (U)Ordered By: Dr. Angelo on 01-24-2022 Urobilinogen Ql (U) Normal mg/dl Normal [facility] Absolute lymphocyte countOrd ered By: Dr. Pace on 01-15-2022 Lymphocytes Auto (Unsp spec) [#/Vol] 2.40 10*3/uL 0.83-4.51 [facility] Basophil percentageOrdered B y: Dr. Pace on 01-15-2022 Basophils/100 WBC (Bld) 0.6 % 0-1 [facility] Chloride [Moles/Vol] 108 mmol/L 98-107 [facility] Eosinophils/100 WBC (Bld) 2.7 % 0-5 [facility] Glucose [Mass/Vol] 118 mg/dL 74-106 [facility] Comment on above: Fasting Glucose resu lt from 100 to 125 mg/dL suggests IMPAIRED HOMEOSTASIS per A.D.A. criteria. Neutrophils (Bld) [#/Vol] 4.7 10*3/uL 2.0-7.7 [facility] Neutrophils/100 WBC (Bld) 58.8 % 47-70 [facility] Potassium [Moles/Vol] 4.4 mmol/L 3.5-5.1 [facility] Sodium [Moles/Vol] 138 mmol/L 136-145 [facility] WBC (Bld) [#/Vol] 8.1 10*3/uL 4.4-11.0 [facility] Blood erythrocytes count (nu mber/volume)Ordered By: Dr. Pace on 01-15-2022 RBC (Bld) [#/Vol] 4.29 10*6/uL 4.2-5.4 [facility] Blood hemoglobin measurement (mass/volume)Ordered By: Dr. Pace on 01-15-2022 Hemoglobin (Bld) [Mass/Vol] 13.0 g/dL 12.0-15.0 [facility] Blood lymphocytes/100 leukoc ytesOrdered By: Dr. Pace on 01-15-2022 Lymphocytes/100 WBC (Bld) 29.7 % 19-41 [facility] Blood monocytes/100 leukocyt esOrdered By: Dr. Pace on 01-15-2022 Monocytes/100 WBC (Bld) 7.8 % 0-10 [facility] Blood platelet mean volumeOr dered By: Dr. Pace on 01-15-2022 Platelet mean volume (Bld) [Entitic vol] 9.1 fL 6.2-12.0 [facility] Determination of erythrocyte mean corpuscular volume (MCV)Ordered By: Dr. Pace on 01-15-2022 MCV (RBC) [Entitic vol] 92.5 fL 81-99 [facility] Hematocrit Auto (Bld) [Volum e fraction]Ordered By: Dr. Pace on 01-15-2022 Hematocrit (Bld) [Volume fraction] 39.7 % 37-47 [facility] Laboratory - Chemistry and C hemistry - challengeOrdered By: Dr. Pace on 01-15-2022 CO2 [Moles/Vol] 27.0 mmol/L 21.0-32.0 [facility] Urea nitrogen/Creatinine [Mass ratio] 20.9 mg/mg 10-20 [facility] Laboratory - Hematology and Cell countsOrdered By: Dr. Pace on 01-15-2022 Erythrocyte distribution width (RBC) [Entitic vol] 44.6 fL 35.1-43.9 [facility] Erythrocyte distribution width (RBC) [Ratio] 13.2 % 11.6-14.6 [facility] Immature granulocytes/100 WBC (Bld) 0.400 % 0.0-0.9 [facility] Comment on above: IG% - Immature Granu locytes (promyelocytes, myelocytes and metamyelocytes) > 1% indicates that a LEFT SHIFT is Present. MCH (RBC) [Entitic mass] 30.3 pg 27.0-32.0 [facility] Nucleated RBC/100 WBC (Bld) [Ratio] 0 % 0-5 [facility] MCHC Auto (RBC) [Mass/Vol]Or dered By: Dr. Pace on 01-15-2022 MCHC (RBC) [Mass/Vol] 32.7 g/dL 32-36 [facility] No Panel InformationOrdered By: Dr. Pace on 01-15-2022 D-Dimer Quantitative (PE/DVT) 0.36 FEU/ug/m 0.27-0.49 [facility] Comment on above: NORMAL D-Dimer level (<0.50) indicates no DVT or PE. Estimated Creatinine Clearance Calc 134.89 ml/min [facility] Estimated GFR (MDRD) Amer 150 mL/min >60 [facility] Comment on above: GFR Calc Estimated GFR (MDRD) Non-Af Amer 124 mL/min >60 [facility] Comment on above: Non- GFR Calc Troponin I High Sensitivity 5 pg/mL 3.0-54.0 [facility] Comment on above: Please Note: New Renetta t Units and Gender Specific Reference Ranges. For more information see Policy Stat Procedure [place] High Sensitivity Troponin (TNIH) and attachments. Platelets bldOrdered By: Dr. Pace on 01-15-2022 Platelets (Bld) [#/Vol] 305 10*3/uL 150-450 [facility] Serum or plasma calcium cherelle urement (mass/volume)Ordered By: Dr. Pace on 01-15-2022 Calcium [Mass/Vol] 9.7 mg/dL 8.5-10.1 [facility] Serum or plasma creatinine m easurement (mass/volume)Ordered By: Dr. Pace on 01-15-2022 Creatinine [Mass/Vol] 0.62 mg/dL 0.55-1.02 [facility] Comment on above: The validity of the calculated GFR & GFRAA in patients over 70 years has not been determined. Clinical correlation is essential. Serum or plasma urea nitroge n measurement (mass/volume)Ordered By: Dr. Pace on 01-15-2022 Urea nitrogen [Mass/Vol] 13 mg/dL 7-18 [facility] Thin prep Papanicolaou smear with manual screeningOrdered By: Dr. Pace on 01-15-2022 Thin prep Papanicolaou smear with manual screening 3 5-15 [facility] Basophil percentageOrdered B y: Karina Guerra on 12-14-2021 Bilirubin [Mass/Vol] 0.40 mg/dL 0.20-1.00 [facility] Comment on above: For patients on eltr ombopag therapy, use of Dimension [place] TBIL is not recommended. Chloride [Moles/Vol] 107 mmol/L 98-107 [facility] Glucose [Mass/Vol] 122 mg/dL 74-106 [facility] Comment on above: Fasting Glucose resu lt from 100 to 125 mg/dL suggests IMPAIRED HOMEOSTASIS per A.D.A. criteria. Potassium [Moles/Vol] 4.4 mmol/L 3.5-5.1 [facility] Protein [Mass/Vol] 6.9 g/dL 6.4-8.2 [facility] Sodium [Moles/Vol] 137 mmol/L 136-145 [facility] Laboratory - Chemistry and C hemistry - challengeOrdered By: Karina Guerra on 12-14-2021 ALP [Catalytic activity/Vol] 53 U/L 45-117 [facility] ALT [Catalytic activity/Vol] 136 U/L 13-56 [facility] CO2 [Moles/Vol] 27.0 mmol/L 21.0-32.0 [facility] Free T4 [Mass/Vol] 0.96 ng/dL 0.76-1.46 [facility] Globulin (S) [Mass/Vol] 3.6 g/dL 2.2-4.2 [facility] Urea nitrogen/Creatinine [Mass ratio] 20.8 mg/mg 10-20 [facility] No Panel InformationOrdered By: Karina Guerra on 12-14-2021 Estimated GFR (MDRD) Amer 109 mL/min >60 [facility] Comment on above: GFR Calc Estimated GFR (MDRD) Non-Af Amer 90 mL/min >60 [facility] Comment on above: Non- GFR Calc [place] Level 1.10 mmol/L 0.60-1.20 [facility] Thyroid Stimulating Hormone (TSH) 6.04 uIU/mL 0.358-3.74 [facility] Serum or plasma albumin cherelle urement (mass/volume)Ordered By: Karina Guerra on 12-14-2021 Albumin [Mass/Vol] 3.3 g/dL 3.2-5.0 [facility] Serum or plasma albumin/glob ulin mass ratioOrdered By: Karina Guerra on 12-14-2021 Albumin/Globulin [Mass ratio] 0.9 {ratio} 0.9-2.4 [facility] Serum or plasma calcium cherelle urement (mass/volume)Ordered By: Karina Guerra on 12-14-2021 Calcium [Mass/Vol] 8.8 mg/dL 8.5-10.1 [facility] Serum or plasma creatinine m easurement (mass/volume)Ordered By: Karina Guerra on 12-14-2021 Creatinine [Mass/Vol] 0.82 mg/dL 0.55-1.02 [facility] Comment on above: The validity of the calculated GFR & GFRAA in patients over 70 years has not been determined. Clinical correlation is essential. Serum or plasma urea nitroge n measurement (mass/volume)Ordered By: Karina Guerra on 12-14-2021 Urea nitrogen [Mass/Vol] 17 mg/dL 7-18 [facility] Thin prep Papanicolaou smear with manual screeningOrdered By: Karina Guerra on 12-14-2021 Thin prep Papanicolaou smear with manual screening 59 U/L 15-37 [facility] Thin prep Papanicolaou smear with manual screening 3 5-15 [facility] Absolute lymphocyte counton 11-30-2021 Lymphocytes Auto (Unsp spec) [#/Vol] 2.45 10*3/uL 0.83-4.51 [facility] Basophil percentageon 2021 Basophil percentage 3.3 mg/dL 2.5-4.9 [facility] Basophils/100 WBC (Bld) 0.9 % 0-1 [facility] Bilirubin [Mass/Vol] 0.60 mg/dL 0.20-1.00 [facility] Comment on above: For patients on eltr ombopag therapy, use of Dimension [place] TBIL is not recommended. Chloride [Moles/Vol] 108 mmol/L 98-107 [facility] Cholesterol [Mass/Vol] 190 mg/dL <200 [facility] Comment on above: <200 mg/dL Desirable 200-240 mg/dL Borderline >240 mg/dL High Risk Eosinophils/100 WBC (Bld) 2.9 % 0-5 [facility] Glucose [Mass/Vol] 143 mg/dL 74-106 [facility] Comment on above: Fasting Glucose resu lt greater than or equal to 126 mg/dL suggests DIABETES MELLITUS per A.D.A. criteria. Neutrophils (Bld) [#/Vol] 3.4 10*3/uL 2.0-7.7 [facility] Neutrophils/100 WBC (Bld) 51.3 % 47-70 [facility] Potassium [Moles/Vol] 4.9 mmol/L 3.5-5.1 [facility] Protein [Mass/Vol] 7.4 g/dL 6.4-8.2 [facility] Sodium [Moles/Vol] 140 mmol/L 136-145 [facility] Triglyceride [Mass/Vol] 208 mg/dL <199 [facility] Comment on above: The drugs N-Acetylcy steine and Metamizole may falsely depress this assay.Serum Triglycerides Reference Interval Normal <150 mg/dL Borderline high 150 - 199 mg/dL High 200 - 499 mg/dL Very High > or = 500 mg/dL WBC (Bld) [#/Vol] 6.7 10*3/uL 4.4-11.0 [facility] Blood erythrocytes count (nu mber/volume)on 11-30-2021 RBC (Bld) [#/Vol] 4.08 10*6/[facility]L [facility].2[facility] hemoglobin measurement (mass/volume)on 11-30-2021 Hemoglobin (Bld) [Mass/Vol] 12.2 g/dL 12.0-15.0 [facility] Blood lymphocytes/100 leukoc yteson 11-30-2021 Lymphocytes/100 WBC (Bld) 36.8 % 19-41 [facility] Blood monocytes/100 leukocyt eson 11-30-2021 Monocytes/100 WBC (Bld) 7.8 % 0-10 [facility] Blood platelet mean volumeon 11-30-2021 Platelet mean volume (Bld) [Entitic vol] 8.9 fL 6.2-12.0 [facility] Determination of erythrocyte mean corpuscular volume (MCV)on 11-30-2021 MCV (RBC) [Entitic vol] 91.9 fL 81-99 [facility] Hematocrit Auto (Bld) [Volum e fraction]on 11-30-2021 Hematocrit (Bld) [Volume fraction] 37.5 % 37-47 [facility] Iron measurement (mass/mass) on 11-30-2021 Iron (Unsp spec) [Mass/Mass] 72 ug/dL 50-170 [facility] Laboratory - Chemistry and C hemistry - challengeon 11-30-2021 ALP [Catalytic activity/Vol] 59 U/L 45-117 [facility] ALT [Catalytic activity/Vol] 134 U/L 13-56 [facility] CO2 [Moles/Vol] 26.0 mmol/L 21.0-32.0 [facility] Globulin (S) [Mass/Vol] 4.0 g/dL 2.2-4.2 [facility] Magnesium [Mass/Vol] 2.1 mg/dL 1.6-2.6 [facility] T4 [Mass/Vol] 9.3 ug/dL 4.8-13.9 [facility] Urea nitrogen/Creatinine [Mass ratio] 21.4 mg/mg 10-20 [facility] Laboratory - Hematology and Cell countson 11-30-2021 Erythrocyte distribution width (RBC) [Entitic vol] 46.2 fL 35.1-43.9 [facility] Erythrocyte distribution width (RBC) [Ratio] 13.6 % 11.6-14.6 [facility] Immature granulocytes/100 WBC (Bld) 0.300 % 0.0-0.9 [facility] Comment on above: IG% - Immature Granu locytes (promyelocytes, myelocytes and metamyelocytes) > 1% indicates that a LEFT SHIFT is Present. MCH (RBC) [Entitic mass] 29.9 pg 27.0-32.0 [facility] Nucleated RBC/100 WBC (Bld) [Ratio] 0 % 0-5 [facility] MCHC Auto (RBC) [Mass/Vol]on 11-30-2021 MCHC (RBC) [Mass/Vol] 32.5 g/dL 32-36 [facility] No Panel Informationon 11-30 Estimated GFR (MDRD) Amer 106 mL/min >60 [facility] Comment on above: GFR Calc Estimated GFR (MDRD) Non-Af Amer 88 mL/min >60 [facility] Comment on above: Non- GFR Calc Miscellaneous Test See comment [facility] Comment on above: TEST RESULT LIMITSSe lenium, Serum/Plasma 150 ug/L 93 - 198A: This test was developed and its performance characteristics determined by [employer]. It has not been cleared or approved by the Food and DrugAdministration. TESTING PERFORMED AT [facility]. ORIGINAL REPORT ON FILE IN LAB CONTAINS ADDITIONAL TEST SITE INFORMATION. Thyroid Stimulating Hormone (TSH) 4.91 uIU/mL 0.358-3.74 [facility] Total Iron Binding Capacity 369 ug/dL 250-450 [facility] Total Triiodothyronine 0.99 ng/mL 0.6-1.81 [facility] Platelets bldon 11-30-2021 Platelets (Bld) [#/Vol] 318 10*3/uL 150-450 [facility] Serum or plasma albumin cherelle urement (mass/volume)on 11-30-2021 Albumin [Mass/Vol] 3.4 g/dL 3.2-5.0 [facility] Serum or plasma albumin/glob ulin mass ratioon 11-30-2021 Albumin/Globulin [Mass ratio] 0.8 {ratio} 0.9-2.4 [facility] Serum or plasma calcium cherelle urement (mass/volume)on 11-30-2021 Calcium [Mass/Vol] 9.1 mg/dL 8.5-10.1 [facility] Serum or plasma cholesterol in HDL measurement (mass/volume)on 11-30-2021 Cholesterol in HDL [Mass/Vol] 29 mg/dL >40 [facility] Comment on above: The drugs N-Acetylcy steine and Metamizole may falsely depress this assay. Reference Range HDL <40 mg/dL Low HDL Cholesterol HDL >or= 60 mg/dL High HDL Cholesterol Serum or plasma cholesterol in VLDL measurement (mass/volume)on 11-30-2021 Cholesterol in VLDL [Mass/Vol] 42 mg/dL 5-40 [facility] Serum or plasma creatinine m easurement (mass/volume)on 11-30-2021 Creatinine [Mass/Vol] 0.84 mg/dL 0.55-1.02 [facility] Comment on above: The validity of the calculated GFR & GFRAA in patients over 70 years has not been determined. Clinical correlation is essential. Serum or plasma ferritin bur[place] surement (mass/volume)on 11-30-2021 Ferritin [Mass/Vol] 237 ng/mL 8-252 [facility] Serum or plasma low density lipoprotein (LDL) cholesterol measurement (mass/volume)on 11-30-2021 Cholesterol in LDL [Mass/Vol] 119 mg/dL 0-130 [facility] Serum or plasma urea nitroge n measurement (mass/volume)on 11-30-2021 Urea nitrogen [Mass/Vol] 18 mg/dL 7-18 [facility] Serum or plasma zinc measure ment (mass/volume)on 11-30-2021 Zinc [Mass/Vol] 80 ug/dL 44-115 [facility] Comment on above: Detection Limit = 5P erformed at: - [facility] [id number] Director: Harsh Harris MD, Phone: [phone] Thin prep Papanicolaou smear with manual screeningon 11-30-2021 Thin prep Papanicolaou smear with manual screening 49 U/L 15-37 [facility] Thin prep Papanicolaou smear with manual screening 6 5-15 [facility] Thin prep Papanicolaou smear with manual screening 117 ug/dL 80-158 [facility] Comment on above: Detection Limit = 5 Absolute lymphocyte counton 09-27-2021 Lymphocytes Auto (Unsp spec) [#/Vol] 2.31 10*3/uL 0.83-4.51 [facility] Work Phone: Basophil percentageon 2021 Basophils/100 WBC (Bld) 0.6 % 0-1 [facility] Work Phone: Bilirubin [Mass/Vol] 0.40 mg/dL 0.20-1.00 [facility] Work Phone: Comment on above: For patients on eltr ombopag therapy, use of Dimension [place] TBIL is not recommended. Eosinophils/100 WBC (Bld) 1.7 % 0-5 [facility] Work Phone: Neutrophils (Bld) [#/Vol] 3.5 10*3/uL 2.0-7.7 [facility] Work Phone: Neutrophils/100 WBC (Bld) 54.1 % 47-70 [facility] Work Phone: Protein [Mass/Vol] 7.1 g/dL 6.4-8.2 [facility] Work Phone: WBC (Bld) [#/Vol] 6.4 10*3/uL 4.4-11.0 [facility] Work Phone: Blood erythrocytes count (nu mber/volume)on 09-27-2021 RBC (Bld) [#/Vol] 4.16 10*6/uL 4.2-5.4 [facility] Work Phone: Blood hemoglobin measurement (mass/volume)on 09-27-2021 Hemoglobin (Bld) [Mass/Vol] 12.4 g/dL 12.0-15.0 [facility] Work Phone: Blood lymphocytes/100 leukoc yteson 09-27-2021 Lymphocytes/100 WBC (Bld) 36.1 % 19-41 [facility] Work Phone: Blood monocytes/100 leukocyt eson 09-27-2021 Monocytes/100 WBC (Bld) 7.2 % 0-10 [facility] Work Phone: Blood platelet mean volumeon 09-27-2021 Platelet mean volume (Bld) [Entitic vol] 9.6 fL 6.2-12.0 [facility] Work Phone: Determination of erythrocyte mean corpuscular volume (MCV)on 09-27-2021 MCV (RBC) [Entitic vol] 88.0 fL 81-99 [facility] Work Phone: Direct bilirubinon 2 Bilirubin.direct [Mass/Vol] 0.11 mg/dL 0.00-0.30 [facility] Work Phone: Hematocrit Auto (Bld) [Volum e fraction]on 09-27-2021 Hematocrit (Bld) [Volume fraction] 36.6 % 37-47 [facility] Work Phone: Iron measurement (mass/mass) on 09-27-2021 Iron (Unsp spec) [Mass/Mass] 84 ug/dL 50-170 [facility] Work Phone: Laboratory - Chemistry and C hemistry - challengeon 09-27-2021 ALP [Catalytic activity/Vol] 56 U/L 45-117 [facility] Work Phone: ALT [Catalytic activity/Vol] 149 U/L 13-56 [facility] Work Phone: Globulin (S) [Mass/Vol] 3.8 g/dL 2.2-4.2 [facility] Work Phone: [phone] Laboratory - Hematology and Cell countson 09-27-2021 Erythrocyte distribution width (RBC) [Entitic vol] 45.2 fL 35.1-43.9 [facility] Work Phone: Erythrocyte distribution width (RBC) [Ratio] 14.0 % 11.6-14.6 [facility] Work Phone: Immature granulocytes/100 WBC (Bld) 0.300 % 0.0-0.9 [facility] Work Phone: Comment on above: IG% - Immature Granu locytes (promyelocytes, myelocytes and metamyelocytes) > 1% indicates that a LEFT SHIFT is Present. MCH (RBC) [Entitic mass] 29.8 pg 27.0-32.0 [facility] Work Phone: Nucleated RBC/100 WBC (Bld) [Ratio] 0 % 0-5 [facility] Work Phone: MCHC Auto (RBC) [Mass/Vol]on 09-27-2021 MCHC (RBC) [Mass/Vol] 33.9 g/dL 32-36 [facility] Work Phone: No Panel Informationon 09-27 Total Iron Binding Capacity 352 ug/dL 250-450 [facility] Work Phone: Platelets bldon 09-27-2021 Platelets (Bld) [#/Vol] 336 10*3/uL 150-450 [facility] Work Phone: Serum or plasma albumin cherelle urement (mass/volume)on 09-27-2021 Albumin [Mass/Vol] 3.3 g/dL 3.2-5.0 [facility] Work Phone: Thin prep Papanicolaou smear with manual screeningon 09-27-2021 Thin prep Papanicolaou smear with manual screening 54 U/L 15-37 [facility] Work Phone: Absolute lymphocyte counton 09-10-2021 Lymphocytes Auto (Unsp spec) [#/Vol] 3.23 10*3/uL 0.83-4.51 [facility] Work Phone: Basophil percentageon 2021 Basophils/100 WBC (Bld) 0.4 % 0-1 [facility] Work Phone: Chloride [Moles/Vol] 111 mmol/L 98-107 [facility] Work Phone: Eosinophils/100 WBC (Bld) 2.3 % 0-5 [facility] Work Phone: [phone] Glucose [Mass/Vol] 119 mg/dL 74-106 [facility] Work Phone: Comment on above: Fasting Glucose resu lt from 100 to 125 mg/dL suggests IMPAIRED HOMEOSTASIS per A.D.A. criteria. Neutrophils (Bld) [#/Vol] 4.1 10*3/uL 2.0-7.7 [facility] Work Phone: Neutrophils/100 WBC (Bld) 50.0 % 47-70 [facility] Work Phone: Potassium [Moles/Vol] 3.9 mmol/L 3.5-5.1 [facility] Work Phone: Sodium [Moles/Vol] 145 mmol/L 136-145 [facility] Work Phone: WBC (Bld) [#/Vol] 8.2 10*3/uL 4.4-11.0 [facility] Work Phone: Beta hCG serum qualon 2021 Beta HCG ( test) Ql Negative [facility] Work Phone: Blood erythrocytes count (nu mber/volume)on 09-10-2021 RBC (Bld) [#/Vol] 4.39 10*6/uL 4.2-5.4 [facility] Work Phone: Blood hemoglobin measurement (mass/volume)on 09-10-2021 Hemoglobin (Bld) [Mass/Vol] 12.9 g/dL 12.0-15.0 [facility] Work Phone: Blood lymphocytes/100 leukoc yteson 09-10-2021 Lymphocytes/100 WBC (Bld) 39.3 % 19-41 [facility] Work Phone: Blood monocytes/100 leukocyt eson 09-10-2021 Monocytes/100 WBC (Bld) 7.6 % 0-10 [facility] Work Phone: Blood platelet mean volumeon 09-10-2021 Platelet mean volume (Bld) [Entitic vol] 9.4 fL 6.2-12.0 [facility] Work Phone: Determination of erythrocyte mean corpuscular volume (MCV)on 09-10-2021 MCV (RBC) [Entitic vol] 89.1 fL 81-99 [facility] Work Phone: Hematocrit Auto (Bld) [Volum e fraction]on 09-10-2021 Hematocrit (Bld) [Volume fraction] 39.1 % 37-47 [facility] Work Phone: Laboratory - Chemistry and C hemistry - challengeon 09-10-2021 CO2 [Moles/Vol] 28.0 mmol/L 21.0-32.0 [facility] Work Phone: Urea nitrogen/Creatinine [Mass ratio] 20.2 mg/mg 10-20 [facility] Work Phone: Laboratory - Drug toxicology on 09-10-2021 Amphetamines Ql (U) Negative <1000 [facility]: Benzodiazepines Ql (U) Negative < 200 ng/mL [facility] Work Phone: Cannabinoids Screen Ql (U) Negative < 50 ng/mL [facility] Work Phone: Cocaine Ql (U) Negative < 300 ng/mL [facility] Work Phone: Opiates Ql (U) Negative < 300 ng/mL [facility] Work Phone: Laboratory - Hematology and Cell countson 09-10-2021 Erythrocyte distribution width (RBC) [Entitic vol] 44.7 fL 35.1-43.9 [facility] Work Phone: Erythrocyte distribution width (RBC) [Ratio] 13.8 % 11.6-14.6 [facility] Work Phone: Immature granulocytes/100 WBC (Bld) 0.400 % 0.0-0.9 [facility] Work Phone: Comment on above: IG% - Immature Granu locytes (promyelocytes, myelocytes and metamyelocytes) > 1% indicates that a LEFT SHIFT is Present. MCH (RBC) [Entitic mass] 29.4 pg 27.0-32.0 [facility] Work Phone: Nucleated RBC/100 WBC (Bld) [Ratio] 0 % 0-5 [facility] Work Phone: MCHC Auto (RBC) [Mass/Vol]on 09-10-2021 MCHC (RBC) [Mass/Vol] 33.0 g/dL 32-36 [facility] Work Phone: No Panel Informationon 09-10 Ethyl Alcohol Level < 3.0 mg/dL [facility] Work Phone: Comment on above: The serum:whole bloo d ethanol ratio is approximately 1.14and varies slightly with hematocrit. Medical Alcohol reference interval and critical value innon-tolerant individuals; 50 - 100 Impairment 100 Intoxication 100 - 250 Severe Poisoning 250 - 400 Deep/possible fatal coma Estimated Creatinine Clearance Calc 131.81 ml/min [facility] Work Phone: Estimated GFR (MDRD) Amer 144 mL/min >60 [facility] Work Phone: Comment on above: GFR Calc Estimated GFR (MDRD) Non-Af Amer 119 mL/min >60 [facility] Work Phone: Comment on above: Non- GFR Calc MDMA (Ecstasy) Screen Negative < 500 ng/mL [facility] Work Phone: Urine Barbiturates Screen Negative < 200 ng/mL [facility] Work Phone: Urine Drug Screen Comment [facility] Work Phone: Comment on above: CONFIRMATORY [...] Methadone Screen Negative < 300 ng/mL [facility] Work Phone: Platelets bldon 09-10-2021 Platelets (Bld) [#/Vol] 311 10*3/uL 150-450 [facility] Work Phone: Serum or plasma calcium cherelle urement (mass/volume)on 09-10-2021 Calcium [Mass/Vol] 9.0 mg/dL 8.5-10.1 [facility] Work Phone: Serum or plasma creatinine m easurement (mass/volume)on 09-10-2021 Creatinine [Mass/Vol] 0.64 mg/dL 0.55-1.02 [facility] Work Phone: Comment on above: The validity of the calculated GFR & GFRAA in patients over 70 years has not been determined. Clinical correlation is essential. Serum or plasma urea nitroge n measurement (mass/volume)on 09-10-2021 Urea nitrogen [Mass/Vol] 13 mg/dL 7-18 [facility] Work Phone: Thin prep Papanicolaou smear with manual screeningon 09-10-2021 Thin prep Papanicolaou smear with manual screening 6 5-15 [facility] Work Phone: [phone] Urine phencyclidine (PCP) de tectionon 09-10-2021 Phencyclidine Ql (U) Negative < 25 ng/mL [facility] Work Phone: Absolute lymphocyte counton 09-03-2021 Lymphocytes Auto (Unsp spec) [#/Vol] 1.63 10*3/uL 0.83-4.51 [facility] Work Phone: Basophil percentageon 2021 Basophil percentage 0-5 SEEN /hpf 0-5 [facility] Work Phone: Basophils/100 WBC (Bld) 0.6 % 0-1 [facility] Work Phone: Bilirubin [Mass/Vol] 0.60 mg/dL 0.20-1.00 [facility] Work Phone: Comment on above: For patients on eltr ombopag therapy, use of Dimension [place] TBIL is not recommended. Chloride [Moles/Vol] 110 mmol/L 98-107 [facility] Work Phone: Eosinophils/100 WBC (Bld) 0.9 % 0-5 [facility] Work Phone: Glucose [Mass/Vol] 104 mg/dL 74-106 [facility] Work Phone: [phone] Comment on above: Fasting Glucose resu lt from 100 to 125 mg/dL suggests IMPAIRED HOMEOSTASIS per A.D.A. criteria. Neutrophils (Bld) [#/Vol] 4.3 10*3/uL 2.0-7.7 [facility] Work Phone: Neutrophils/100 WBC (Bld) 63.1 % 47-70 [facility] Work Phone: Potassium [Moles/Vol] 4.3 mmol/L 3.5-5.1 [facility] Work Phone: [phone] Protein [Mass/Vol] 7.2 g/dL 6.4-8.2 [facility] Work Phone: Sodium [Moles/Vol] 138 mmol/L 136-145 [facility] Work Phone: [phone] WBC (Bld) [#/Vol] 6.8 10*3/uL 4.4-11.0 [facility] Work Phone: Beta hCG serum qualon 2021 Beta HCG ( test) Ql Negative [facility] Work Phone: Bilirubin Test strip Ql (U)o n 09-03-2021 Bilirubin Ql (U) Negative Negative [facility] Work Phone: Blood erythrocytes count (nu mber/volume)on 09-03-2021 RBC (Bld) [#/Vol] 4.39 10*6/uL [facility]: Blood hemoglobin measurement (mass/volume)on 09-03-2021 Hemoglobin (Bld) [Mass/Vol] 12.7 g/dL 12.0-15.0 [facility] Work Phone: Blood lymphocytes/100 leukoc yteson 09-03-2021 Lymphocytes/100 WBC (Bld) 24.0 % 19-41 [facility] Work Phone: Blood monocytes/100 leukocyt eson 09-03-2021 Monocytes/100 WBC (Bld) 10.8 % 0-10 [facility] Work Phone: Blood platelet mean volumeon 09-03-2021 Platelet mean volume (Bld) [Entitic vol] 9.4 fL 6.2-12.0 [facility] Work Phone: Determination of erythrocyte mean corpuscular volume (MCV)on 09-03-2021 MCV (RBC) [Entitic vol] 89.3 fL 81-99 [facility] Work Phone: Hematocrit Auto (Bld) [Volum e fraction]on 09-03-2021 Hematocrit (Bld) [Volume fraction] 39.2 % 37-47 [facility] Work Phone: Ketones Test strip Ql (U)on 09-03-2021 Ketones Ql (U) Negative Negative [facility] Work Phone: Laboratory - Chemistry and C hemistry - challengeon 09-03-2021 ALP [Catalytic activity/Vol] 56 U/L 45-117 [facility] Work Phone: ALT [Catalytic activity/Vol] 149 U/L 13-56 [facility] Work Phone: CO2 [Moles/Vol] 25.0 mmol/L 21.0-32.0 [facility] Work Phone: Globulin (S) [Mass/Vol] 3.7 g/dL 2.2-4.2 [facility] Work Phone: Lipase [Catalytic activity/Vol] 144 U/L 73-393 [facility] Work Phone: Urea nitrogen/Creatinine [Mass ratio] 14.3 mg/mg 10-20 [facility] Work Phone: Laboratory - Hematology and Cell countson 09-03-2021 Erythrocyte distribution width (RBC) [Entitic vol] 44.6 fL 35.1-43.9 [facility] Work Phone: Erythrocyte distribution width (RBC) [Ratio] 13.5 % 11.6-14.6 [facility] Work Phone: Immature granulocytes/100 WBC (Bld) 0.600 % 0.0-0.9 [facility] Work Phone: Comment on above: IG% - Immature Granu locytes (promyelocytes, myelocytes and metamyelocytes) > 1% indicates that a LEFT SHIFT is Present. MCH (RBC) [Entitic mass] 28.9 pg 27.0-32.0 [facility] Work Phone: Nucleated RBC/100 WBC (Bld) [Ratio] 0 % 0-5 [facility] Work Phone: MCHC Auto (RBC) [Mass/Vol]on 09-03-2021 MCHC (RBC) [Mass/Vol] 32.4 g/dL 32-36 [facility] Work Phone: Mucus LM Ql (Urine sed)on Mucus Ql (Urine sed) 0 SEEN /hpf [facility] Work Phone: Nitrite Test strip Ql (U)on 09-03-2021 Nitrite Ql (U) Negative Negative [facility] Work Phone: No Panel Informationon 09-03 Estimated Creatinine Clearance Calc 75.32 ml/min [facility] Work Phone: Estimated GFR (MDRD) Amer 76 mL/min >60 [facility] Work Phone: Comment on above: GFR Calc Estimated GFR (MDRD) Non-Af Amer 63 mL/min >60 [facility] Work Phone: Comment on above: Non- GFR Calc Platelets bldon 09-03-2021 Platelets (Bld) [#/Vol] 300 10*3/uL 150-450 [facility] Work Phone: Protein Test strip Ql (U)on 09-03-2021 Protein Ql (U) 30 mg/dl Negative [facility] Work Phone: Serum or plasma albumin cherelle urement (mass/volume)on 09-03-2021 Albumin [Mass/Vol] 3.5 g/dL 3.2-5.0 [facility] Work Phone: Serum or plasma albumin/glob ulin mass ratioon 09-03-2021 Albumin/Globulin [Mass ratio] 0.9 {ratio} 0.9-2.4 [facility] Work Phone: Serum or plasma calcium cherelle urement (mass/volume)on 09-03-2021 Calcium [Mass/Vol] 9.1 mg/dL 8.5-10.1 [facility] Work Phone: Serum or plasma creatinine m easurement (mass/volume)on 09-03-2021 Creatinine [Mass/Vol] 1.12 mg/dL 0.55-1.02 [facility] Work Phone: Comment on above: The validity of the calculated GFR & GFRAA in patients over 70 years has not been determined. Clinical correlation is essential. Serum or plasma urea nitroge n measurement (mass/volume)on 09-03-2021 Urea nitrogen [Mass/Vol] 16 mg/dL 7-18 [facility] Work Phone: Squamous epithelial cells de tection in urine sediment by light microscopyon 09-03-2021 Epithelial cells.squamous LM Ql (Urine sed) 5-10 SEEN /hpf 5-10 [facility] Work Phone: Thin prep Papanicolaou smear with manual screeningon 09-03-2021 Thin prep Papanicolaou smear with manual screening 55 U/L 15-37 [facility] Work Phone: Thin prep Papanicolaou smear with manual screening 3 5-15 [facility] Work Phone: Urine blood detectionon 08-19 RBC Ql (U) Negative Negative [facility] Work Phone: RBC Ql (U) 0 SEEN /hpf 0-5 [facility] Work Phone: Urine clarityon 09-03-2021 Clarity (U) Cloudy Clear [facility] Work Phone: Urine color determinationon 09-03-2021 Color (U) Yellow Yellow [facility] Work Phone: Urine glucose detectionon Glucose Ql (U) Normal mg/dl Normal [facility] Work Phone: Urine leukocyte esterase det ection by dipstickon 09-03-2021 Leukocyte esterase Test strip Ql (U) 100 /ul Negative [facility] Work Phone: Urine pHon 09-03-2021 pH (U) 5.0 [pH] 5.0 - 8.0 [facility] Work Phone: Urine sediment bacteria coun t by microscopy (number/high power field)on 09-03-2021 Bacteria LM.HPF (Urine sed) [#/Area] 1 /[HPF] None Seen [facility] Work Phone: Urine specific gravity measu rementon 09-03-2021 Specific gravity (U) [Rel density] 1.020 1.002-1.030 [facility] Work Phone: Urobilinogen Auto test strip Ql (U)on 09-03-2021 Urobilinogen Ql (U) Normal mg/dl Normal [facility] Work Phone: Basophil percentageon 2021 Bilirubin [Mass/Vol] 0.50 mg/dL 0.20-1.00 [facility] Work Phone: Comment on above: For patients on eltr ombopag therapy, use of Dimension [place] TBIL is not recommended. Chloride [Moles/Vol] 109 mmol/L 98-107 [facility] Work Phone: Cholesterol [Mass/Vol] 212 mg/dL <200 [facility] Work Phone: Comment on above: <200 mg/dL Desirable 200-240 mg/dL Borderline >240 mg/dL High Risk Glucose [Mass/Vol] 84 mg/dL 74-106 [facility] Work Phone: Potassium [Moles/Vol] 4.2 mmol/L 3.5-5.1 [facility] Work Phone: Protein [Mass/Vol] 7.4 g/dL 6.4-8.2 [facility] Work Phone: Sodium [Moles/Vol] 140 mmol/L 136-145 [facility] Work Phone: Triglyceride [Mass/Vol] 219 mg/dL <199 [facility] Work Phone: Comment on above: The drugs N-Acetylcy steine and Metamizole may falsely depress this assay.Serum Triglycerides Reference Interval Normal <150 mg/dL Borderline high 150 - 199 mg/dL High 200 - 499 mg/dL Very High > or = 500 mg/dL Laboratory - Chemistry and C hemistry - challengeon 08-31-2021 ALP [Catalytic activity/Vol] 59 U/L 45-117 [facility] Work Phone: ALT [Catalytic activity/Vol] 197 U/L 13-56 [facility] Work Phone: CO2 [Moles/Vol] 25.0 mmol/L 21.0-32.0 [facility] Work Phone: Globulin (S) [Mass/Vol] 3.8 g/dL 2.2-4.2 [facility] Work Phone: Urea nitrogen/Creatinine [Mass ratio] 22.3 mg/mg 10-20 [facility] Work Phone: No Panel Informationon 08-31 Estimated GFR (MDRD) Amer 119 mL/min >60 [facility] Work Phone: Comment on above: GFR Calc Estimated GFR (MDRD) Non-Af Amer 98 mL/min >60 [facility] Work Phone: Comment on above: Non- GFR Calc Serum or plasma albumin cherelel urement (mass/volume)on 08-31-2021 Albumin [Mass/Vol] 3.6 g/dL 3.2-5.0 [facility] Work Phone: Serum or plasma albumin/glob ulin mass ratioon 08-31-2021 Albumin/Globulin [Mass ratio] 0.9 {ratio} 0.9-2.4 [facility] Work Phone: Serum or plasma calcium cherelle urement (mass/volume)on 08-31-2021 Calcium [Mass/Vol] 9.1 mg/dL 8.5-10.1 [facility] Work Phone: Serum or plasma cholesterol in HDL measurement (mass/volume)on 08-31-2021 Cholesterol in HDL [Mass/Vol] 30 mg/dL >40 [facility] Work Phone: Comment on above: The drugs N-Acetylcy steine and Metamizole may falsely depress this assay. Reference Range HDL <40 mg/dL Low HDL Cholesterol HDL >or= 60 mg/dL High HDL Cholesterol Serum or plasma cholesterol in VLDL measurement (mass/volume)on 08-31-2021 Cholesterol in VLDL [Mass/Vol] 44 mg/dL 5-40 [facility] Work Phone: Serum or plasma creatinine m easurement (mass/volume)on 08-31-2021 Creatinine [Mass/Vol] 0.76 mg/dL 0.55-1.02 [facility] Work Phone: Comment on above: The validity of the calculated GFR & GFRAA in patients over 70 years has not been determined. Clinical correlation is essential. Serum or plasma low density lipoprotein (LDL) cholesterol measurement (mass/volume)on 08-31-2021 Cholesterol in LDL [Mass/Vol] 138 mg/dL 0-130 [facility] Work Phone: Serum or plasma urea nitroge n measurement (mass/volume)on 08-31-2021 Urea nitrogen [Mass/Vol] 17 mg/dL 7-18 [facility] Work Phone: Thin prep Papanicolaou smear with manual screeningon 08-31-2021 Thin prep Papanicolaou smear with manual screening 98 U/L 15-37 [facility] Work Phone: Thin prep Papanicolaou smear with manual screening 6 5-15 [facility] Work Phone: Basophil percentageon 2021 Basophil percentage 3.8 mg/dL 2.5-4.9 [facility] Work Phone: Chloride [Moles/Vol] 108 mmol/L 98-[address] [facility] [address] [facility] Work Phone: Glucose [Mass/Vol] 112 mg/dL 74-106 [facility] Work Phone: Comment on above: Fasting Glucose resu lt from 100 to 125 mg/dL suggests IMPAIRED HOMEOSTASIS per A.D.A. criteria. Potassium [Moles/Vol] 4.2 mmol/L 3.5-5.1 [facility] Work Phone: Sodium [Moles/Vol] 139 mmol/L 136-145 [facility] Work Phone: Laboratory - Chemistry and C hemistry - challengeon 08-24-2021 CO2 [Moles/Vol] 29.0 mmol/L 21.0-32.0 [facility] Work Phone: Urea nitrogen/Creatinine [Mass ratio] 17.5 mg/mg 10-20 [facility] Work Phone: No Panel Informationon 08-24 Estimated GFR (MDRD) Amer 148 mL/min >60 [facility] Work Phone: Comment on above: GFR Calc Estimated GFR (MDRD) Non-Af Amer 123 mL/min >60 [facility] Work Phone: Comment on above: Non- GFR Calc [place] Level 0.60 mmol/L 0.60-1.20 [facility] Work Phone: Thyroid Stimulating Hormone (TSH) 2.96 uIU/mL 0.358-3.74 [facility] Work Phone: Serum or plasma albumin cherelle urement (mass/volume)on 08-24-2021 Albumin [Mass/Vol] 3.4 g/dL 3.2-5.0 [facility] Work Phone: Serum or plasma calcium cherelle urement (mass/volume)on 08-24-2021 Calcium [Mass/Vol] 9.2 mg/dL 8.5-10.1 [facility] Work Phone: Serum or plasma creatinine m easurement (mass/volume)on 08-24-2021 Creatinine [Mass/Vol] 0.63 mg/dL 0.55-1.02 [facility] Work Phone: Comment on above: The validity of the calculated GFR & GFRAA in patients over 70 years has not been determined. Clinical correlation is essential. Serum or plasma urea nitroge n measurement (mass/volume)on 07-06-2022 Urea nitrogen [Mass/Vol] 11 mg/dL 7-18 [facility] Work Phone: Basophil percentageon 2021 Chloride [Moles/Vol] 112 mmol/L 98-107 [facility] Work [facility]: Glucose [Mass/Vol] 100 mg/dL 74-106 [facility] Work Phone: Comment on above: Fasting Glucose resu lt from 100 to 125 mg/dL suggests IMPAIRED HOMEOSTASIS per A.D.A. criteria. Potassium [Moles/Vol] 4.1 mmol/L 3.5-5.1 [facility] Work Phone: Sodium [Moles/Vol] 140 mmol/L 136-145 [facility] Work Phone: WBC (Bld) [#/Vol] 6.6 10*3/uL 4.4-11.0 [facility] Work Phone: Blood erythrocytes count (nu mber/volume)on 06-27-2021 RBC (Bld) [#/Vol] 4.42 10*6/uL 4.2-5.4 [facility]: Blood hemoglobin measurement (mass/volume)on 06-27-2021 Hemoglobin (Bld) [Mass/Vol] 12.7 g/dL 12.0-15.0 [facility] Work Phone: Blood platelet mean volumeon 06-27-2021 Platelet mean volume (Bld) [Entitic vol] 9.4 fL 6.2-12.0 [facility] Work Phone: Determination of erythrocyte mean corpuscular volume (MCV)on 06-27-2021 MCV (RBC) [Entitic vol] 87.3 fL 81-99 [facility] Work Phone: Hematocrit Auto (Bld) [Volum e fraction]on 06-27-2021 Hematocrit (Bld) [Volume fraction] 38.6 % 37-47 [facility] Work Phone: Iron measurement (mass/mass) on 06-27-2021 Iron (Unsp spec) [Mass/Mass] 50 ug/dL 50-170 [facility] Work Phone: Laboratory - Chemistry and C hemistry - challengeon 06-27-2021 CO2 [Moles/Vol] 23.0 mmol/L 21.0-32.0 [facility] Work Phone: Urea nitrogen/Creatinine [Mass ratio] 18.4 mg/mg 10-20 [facility] Work Phone: Laboratory - Hematology and Cell countson 06-27-2021 Erythrocyte distribution width (RBC) [Entitic vol] 45.0 fL 35.1-43.9 [facility] Work Phone: Erythrocyte distribution width (RBC) [Ratio] 14.0 % 11.6-14.6 [facility] Work Phone: MCH (RBC) [Entitic mass] 28.7 pg 27.0-32.0 [facility] Work Phone: MCHC Auto (RBC) [Mass/Vol]on 06-27-2021 MCHC (RBC) [Mass/Vol] 32.9 g/dL 32-36 [facility] Work Phone: No Panel Informationon 06-27 Estimated GFR (MDRD) Amer 176 mL/min >60 [facility] Work Phone: Comment on above: GFR Calc Estimated GFR (MDRD) Non-Af Amer 145 mL/min >60 [facility] Work Phone: Comment on above: Non- GFR Calc Total Iron Binding Capacity 374 ug/dL 250-450 [facility] Work Phone: Platelets bldon 06-27-2021 Platelets (Bld) [#/Vol] 273 10*3/uL 150-450 [facility] Work Phone: Serum or plasma calcium cherelle urement (mass/volume)on 06-27-2021 Calcium [Mass/Vol] 8.7 mg/dL 8.5-10.1 [facility] Work Phone: Serum or plasma creatinine m easurement (mass/volume)on 06-27-2021 Creatinine [Mass/Vol] 0.54 mg/dL 0.55-1.02 [facility] Work Phone: Comment on above: The validity of the calculated GFR & GFRAA in patients over 70 years has not been determined. Clinical correlation is essential. Serum or plasma urea nitroge n measurement (mass/volume)on 06-27-2021 Urea nitrogen [Mass/Vol] 10 mg/dL 7-18 [facility] Work Phone: Thin prep Papanicolaou smear with manual screeningon 06-27-2021 Thin prep Papanicolaou smear with manual screening 5 5-15 [facility] Work Phone: MRI Brain w/oon 02-15-2021 [...] by MARY CORDOVA on 02/15/2021 1547 Normal [facility] Specialist LABORATORYOrdered By: Sandra Spain on 12-14-2020 Basophil, [...] No radiographic evidence of acute osseous injury. 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 DIVISION OF RADIOLOGY Provider, [facility] - 01/07/2020 * * *Final Report* * [...] No radiographic evidence of acute osseous injury. 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 XR Foot - left AP and Latera [...] Joint spaces preserved. DIVISION OF RADIOLOGY Provider, [facility] - 01/07/2020 * * *Final Report* * [...] No radiographic evidence of acute osseous injury. 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 female who presents with a chiefcomplaint ofChief ComplaintPatient presents with PCOS est pt.HPI:Marion presents today with her mother up visit for PCOS and hirsutism. Marionwamadison started on Metformin 850 mg BID in [...] 14, 2016. [facility] she was diagnosed with [...] medication and then placed on Abilify and [place] at this lastadmission. I did review the [...] may recall Marion's mother had noted dark kenaitze around her neck, axilla,and cleavage area for [...] right ankle Autism Depression hosp at 10y [facility] prior to Dx w/autism spectrum disorder,PDD,ADHD Developmental delay Fatty liver seen Dr. Thomson about 3-4 yrs ago for this condition Foot pain Fractures Irritable bowel syndrome REASON FOR INVOLVEMENT W/GI, DR THOMSON ODD (oppositional defiant disorder) PCOS (polycystic ovarian syndrome) PDD (pervasive developmental disorder) Reflux occasional heartburn per mother Scoliosis Suicide attempt 06/2016 one previous visit earlier in 2017 Wrist painOutpatient Prescriptions Marked as Taking for [...] Readings from Last 3 Encounters:01/31/17 (!) 112.1 kg08/02/16 (!) 105.6 kg (>99 %, Z > 2.33)*07/14/16 (!) 101.1 kg (99 %, Z= 2.24) Growth percentiles are based on [facility] 2-20 Years data.Ht Readings from Last 3 Encounters:01/31/17 167.9 cm08/02/16 167.9 cm (76 %, Z= 0.71)*06/21/16 167.5 cm (74 %, Z= 0.65) Growth percentiles are based on [facility] 2-20 Years data.Body mass index is 39.77 [...] active.5. 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 Obtain [id number] total of 25 minutes was spent during the visit today with more than 50% oftotal time spent in face to face counseling and/or coordination of care. Normal [facility] Progress Noteon 09-18-2016 [employer] Authentication Interface Message Text CHIEF COMPLAINT: Shoulder [...] right ankle Autism Depression hosp at 10y [facility] prior to Dx w/autism spectrum disorder,PDD,ADHD Developmental delay Fatty liver seen Dr. Thomson about 3-4 yrs ago for this condition Foot pain Fractures Irritable bowel syndrome REASON FOR INVOLVEMENT W/GI, DR THOMSON ODD (oppositional defiant disorder) PCOS (polycystic ovarian syndrome) PDD (pervasive developmental disorder) Reflux occasional heartburn per mother Scoliosis Suicide attempt 06/2016 one previous visit earlier in 2017 Wrist painPHYSICAL EXAMINATION:On physical examination, The patient [...] present illness or past medical history. Normal [facility] [employer] Authentication Interface Message Text PHYSICIAN STATEMENT:This patient was personally seen and examined by me in conjunction with ournurse practioner, Delio Brunson, C.N.P.. After shared discussion, jss documented the pertinent aspects of this visit. [...] In addition she is scheduled tosee an chuck wagon driver because of some unusual mobility in one of the eyes.There are many factors there probably contributing to her generalized pain inthe shoulders and knees and hopefully we can work these out without furtherextensive workup. Normal [facility] Ova and parasites Ova and parasites identified LM Nom (Unsp spec) [facility] Work Phone: Stool lactoferrin detection by immunoassay Lactoferrin IA Ql (Stl) [facility] Work Phone: Vital Signs Date Time Vital Sign Value Performing Clinician Facility 09-04-2024 23:45-0400 Body temperature 98.4 [degF] Naina Da Silva NP-C Work Phone: [facility] 09-04-2024 23:45-0400 Diastolic blood pressure 74 mm[Hg] Naina Da Silva [employer] Work Phone: [facility] 09-04-2024 23:45-0400 Heart rate 85 /min Naina Da Silva NP-C Work Phone: [facility] 09-04-2024 23:45-0400 Respiratory rate 14 /min Naina Da Silva NP-C Work Phone: [facility] 09-04-2024 23:45-0400 SaO2% (BldA) [Mass fraction] 99 % Naina Avinash [employer] Work Phone: 7(922)109-718041 [place] [address] 09-04-2024 23:45-0400 Systolic blood pressure 141 mm[Hg] Naina Da Silva [employer] Work Phone: 2(702)768-947641 [place] [address] 09-04-2024 21:14-0400 Body height 167.64 cm Naina Da Silva [employer] Work Phone: 6(174)203-545541 [place] [address] 09-04-2024 21:14-0400 Body mass index (BMI) [Ratio] 48.2 kg/m2 Naina Da Silva [employer] Work Phone: 2(934)817-245241 [place] [address] 09-04-2024 21:14-0400 Body weight 135.62 kg Naina Da Silva [employer] Work Phone: 8(709)650-349341 [place] [address] 07-24-2024 07:25-0400 Body mass index (BMI) [Ratio] 47 kg/m2 Naina Da Silva [employer] Work Phone: 4(771)144-292341 [place] [address] 07-24-2024 07:25-0400 Body weight 132.9 kg Naina Da Silva [employer] Work Phone: 2(097)647-980941 [place] [address] 07-24-2024 07:25-0400 Diastolic blood pressure 76 mm[Hg] Naina Da Silva [employer] Work Phone: 5(437)092-376841 [place] [address] 07-24-2024 07:25-0400 Heart rate 56 /min Naina Da Silva [employer] Work Phone: 6(632)490-146441 [place] [address] 07-24-2024 07:25-0400 Respiratory rate 18 /min Naina Da Silva [employer] Work Phone: 9(073)052-761341 [place] [address] 07-24-2024 07:25-0400 SaO2% (BldA) [Mass fraction] 97 % Naina Da Silva [employer] Work Phone: 4(832)229-739341 [place] [address] 07-24-2024 07:25-0400 Systolic blood pressure 121 mm[Hg] Naina Da Silva [employer] Work Phone: 3(353)129-355441 [place] [address] 07-15-2024 10:49-0400 Body height 170.2 cm Jey Johnson MD Work Phone: [facility] 07-15-2024 10:49-0400 Body mass index (BMI) [Ratio] 46.42 kg/m2 Jey Johnson MD Work Phone: [facility] 07-15-2024 10:49-0400 Body weight 134.45 kg Jey Johnson MD Work Phone: [facility] 07-15-2024 10:49-0400 Diastolic blood pressure 78 mm[Hg] Jey Johnson MD Work Phone: [facility] 07-15-2024 10:49-0400 Heart rate 61 /min Jey Johnson MD Work Phone: [facility] 07-15-2024 10:49-0400 Respiratory rate 20 /min Jey Johnson MD Work Phone: [facility] 07-15-2024 10:49-0400 SaO2% (BldA) [Mass fraction] 97 % Jey Johnson MD Work Phone: [facility] 07-15-2024 10:49-0400 Systolic blood pressure 122 mm[Hg] Jey Johnson MD Work Phone: [facility] 06-03-2024 13:14-0400 Body temperature 97.9 [degF] Naina Da Silva [employer] Work Phone: [facility] 06-03-2024 13:14-0400 Diastolic blood pressure 87 mm[Hg] Naina Da Silva [employer] Work Phone: [facility] 06-03-2024 13:14-0400 Heart rate 107 /min Naina Da Silva [employer] Work Phone: [facility] 06-03-2024 13:14-0400 Respiratory rate 22 /min Naina Da Silva [employer] Work Phone: [facility] 06-03-2024 13:14-0400 SaO2% (BldA) [Mass fraction] 99 % Naina Da Silva [employer] Work Phone: 7(521)024-816966 [place] [address] 06-03-2024 13:14-0400 Systolic blood pressure 161 mm[Hg] Naina Da Silva [employer] Work Phone: 3(399)923-648666 [place] [address] 06-03-2024 09:38-0400 Body height 168 cm Nainakourtney Da Silva [employer] Work Phone: 5(898)228-060116 [address] 06-03-2024 09:38-0400 Body mass index (BMI) [Ratio] 47.7 kg/m2 Nainakourtney Da Silva [employer] Work Phone: 5(969)792-125066 [place] [address] 06-03-2024 09:38-0400 Body weight 134.7 kg Naina Da Silva [employer] Work Phone: 5(268)703-086341 [place] [address] 06-02-2024 19:26-0400 Body height 167.64 cm Naina Da Silva [employer] Work Phone: 4(621)564-436841 [place] [address] 06-02-2024 19:26-0400 Body mass index (BMI) [Ratio] 47.9 kg/m2 Nainakourtney Da Silva [employer] Work Phone: 7(816)632-650166 [place] [address] 06-02-2024 19:26-0400 Body temperature 97.8 [degF] Nainakourtney Da Silva [employer] Work Phone: 4(110)302-314066 [place] [address] 06-02-2024 19:26-0400 Body weight 134.76 kg Nainakourtney Da Silva [employer] Work Phone: 5(336)287-355666 [place] [address] 06-02-2024 19:26-0400 Diastolic blood pressure 112 mm[Hg] Naina Da Silva [employer] Work Phone: 4(158)817-315166 [place] [address] 06-02-2024 19:26-0400 Heart rate 103 /min Naina Da Silva [employer] Work Phone: 5(607)003-044366 [place] [address] 06-02-2024 19:26-0400 Respiratory rate 13 /min Naina Da Silva [employer] Work Phone: 1(340)318-242466 [place] [address] 06-02-2024 19:26-0400 SaO2% (BldA) [Mass fraction] 100 % Naina Da Silva [employer] Work Phone: [facility] 06-02-2024 19:26-0400 Systolic blood pressure 172 mm[Hg] Naina Da Silva [employer] Work Phone: [facility] 05-29-2024 14:41-0400 Diastolic blood pressure 114 mm[Hg] Naina Da Silva [employer] Work Phone: [facility] 05-29-2024 14:41-0400 Systolic blood pressure 161 mm[Hg] Naina Da Silva [employer] Work Phone: [facility] 05-29-2024 14:29-0400 Body mass index (BMI) [Ratio] 47.7 kg/m2 Naina Da Silva [employer] Work Phone: [facility] 05-29-2024 14:29-0400 Body weight 134.26 kg Naina Da Silva [employer] Work Phone: [facility] 05-29-2024 14:29-0400 Heart rate 98 /min Naina Da Silva [employer] Work Phone: [facility] 05-29-2024 14:29-0400 Respiratory rate 18 /min Naina Da Silva [employer] Work Phone: [facility] 05-29-2024 14:29-0400 SaO2% (BldA) [Mass fraction] 97 % Naina Da Silva [employer] Work Phone: [facility] 05-16-2024 08:52-0400 Body mass index (BMI) [Ratio] 46.28 kg/m2 Huey Cortes DO, PhD Work Phone: [facility] 05-16-2024 08:52-0400 Body weight 134.04 kg Huey Cortes DO PhD Work Phone: [facility] Comment on above: Patient-reported 05-16-2024 08:52-0400 Diastolic blood pressure 102 mm[Hg] Huey Cortes DO, PhD Work Phone: [facility] Comment on above: Patient-reported 05-16-2024 08:52-0400 Heart rate 100 /min Huey Cortes DO, PhD Work Phone: [facility] Comment on above: Patient-reported 05-16-2024 08:52-0400 Systolic blood pressure 177 mm[Hg] Huey Cortes DO, PhD Work Phone: [facility] Comment on above: Patient-reported 05-15-2024 00:14-0400 Body temperature 98.1 [degF] Naina Da Silva [employer] Work Phone: 7(304)968-247366 [place] [address] 05-15-2024 00:14-0400 Diastolic blood pressure 65 mm[Hg] Naina Da Silva [employer] Work Phone: 2(351)905-418841 [place] [address] 05-15-2024 00:14-0400 Heart rate 88 /min Naina Da Silva [employer] Work Phone: 4(652)798-500541 [place] [address] 05-15-2024 00:14-0400 Respiratory rate 22 /min Naina Da Silva [employer] Work Phone: 1(227)032-716566 [place] [address] 05-15-2024 00:14-0400 SaO2% (BldA) [Mass fraction] 99 % Naina Da Silva [employer] Work Phone: 1(239)413-520266 [place] [address] 05-15-2024 00:14-0400 Systolic blood pressure 123 mm[Hg] Naina Da Silva [employer] Work Phone: 5(395)780-273466 [place] [address] 05-14-2024 20:47-0400 Body height 167.64 cm Naina Da Silva [employer] Work Phone: 7(625)832-513066 [place] [address] 05-14-2024 20:47-0400 Body mass index (BMI) [Ratio] 47.1 kg/m2 Naina Da Silva [employer] Work Phone: 6(011)683-791666 [place] [address] 05-14-2024 20:47-0400 Body weight 132.53 kg Naina Da Silva NP-C Work Phone: 4(903)432-244741 [place] [address] 05-08-2024 17:24-0400 Body temperature 97.2 [degF] Naina Da Silva NP-C Work Phone: 0(282)843-886266 [place] [address] 05-08-2024 17:24-0400 Diastolic blood pressure 96 mm[Hg] Naina Da Silva [employer] Work Phone: 2(916)591-563366 [place] [address] 05-08-2024 17:24-0400 Heart rate 79 /min Naina Da Silva [employer] Work Phone: 6(841)000-649366 [place] [address] 05-08-2024 17:24-0400 Respiratory rate 14 /min Naina Da Silva [employer] Work Phone: 8(790)925-752566 [place] [address] 05-08-2024 17:24-0400 SaO2% (BldA) [Mass fraction] 99 % Nainakourtney Da Silva [employer] Work Phone: 2(773)616-387266 [place] [address] 05-08-2024 17:24-0400 Systolic blood pressure 128 mm[Hg] Naina Da Silva [employer] Work Phone: 3(995)959-403366 [place] [address] 05-08-2024 14:36-0400 Body height 167.64 cm Naina Da Silva [employer] Work Phone: 7(667)109-582266 [place] [address] 05-08-2024 14:36-0400 Body mass index (BMI) [Ratio] 46.1 kg/m2 Naina Da Silva [employer] Work Phone: 6(143)731-255466 [place] [address] 05-08-2024 14:36-0400 Body weight 129.72 kg Naina Da Silva [employer] Work Phone: 1(727)078-314566 [place] [address] 04-15-2024 11:25-0500 Body height 170.2 cm Jey Johnson MD Work Phone: [facility] 04-15-2024 11:25-0500 Body mass index (BMI) [Ratio] 45.67 kg/m2 Jey Johnson MD Work Phone: [facility] 04-15-2024 11:25-0500 Body weight 132.27 kg Jey Johnson MD Work Phone: [facility] 04-15-2024 11:25-0500 Diastolic blood pressure 68 mm[Hg] Jey Johnson MD Work Phone: [facility] 04-15-2024 11:25-0500 Heart rate 68 /min Jey Johnson MD Work Phone: [facility] 04-15-2024 11:25-0500 Respiratory rate 20 /min Jey Johnson MD Work Phone: [facility] 04-15-2024 11:25-0500 SaO2% (BldA) [Mass fraction] 98 % Jey Johnson MD Work Phone: [facility] 04-15-2024 11:25-0500 Systolic blood pressure 120 mm[Hg] Jey Johnson MD Work Phone: [facility] 04-14-2024 16:19-0500 Body mass index (BMI) [Ratio] 46.17 kg/m2 Lincoln Balderas MD Work Phone: [facility] 04-14-2024 16:19-0500 Body temperature 98.49 [degF] Lincoln Balderas MD Work Phone: [facility] 04-14-2024 16:19-0500 Body weight 133.7 kg Lincoln Balderas MD Work Phone: [facility] 04-14-2024 16:19-0500 Diastolic blood pressure 98 mm[Hg] Lincoln Balderas MD Work Phone: [facility] 04-14-2024 16:19-0500 Heart rate 76 /min Lincoln Balderas MD Work Phone: [facility] 04-14-2024 16:19-0500 Respiratory rate 18 /min Lincoln Balderas MD Work Phone: [facility] 04-14-2024 16:19-0500 SaO2% (BldA) [Mass fraction] 97 % Lincoln Balderas MD Work Phone: [facility] 04-14-2024 16:19-0500 Systolic blood pressure 142 mm[Hg] Lincoln Balderas MD Work Phone: [facility] 01-25-2024 12:44-0500 Body mass index (BMI) [Ratio] 46.61 kg/m2 Louis Schmidt APRN.[employer] TECH[employer]ICAL [employer]ICER Work Phone: [facility] 01-25-2024 12:44-0500 Body temperature 98.6 [degF] Louis Schmidt APRN.[employer] TECHNICAL OFFICER Work Phone: [facility] 01-25-2024 12:44-0500 Body weight 135 kg Louis Schmidt APRN.[employer] TECHNICAL OFFICER Work Phone: [facility] 01-25-2024 12:44-0500 Diastolic blood pressure 90 mm[Hg] Louis Schmidt APRN.[employer] TECHNICAL OFFICER Work Phone: [facility] 01-25-2024 12:44-0500 Heart rate 69 /min Louis Schmidt APRN.[employer] TECHNICAL OFFICER Work Phone: [facility] 01-25-2024 12:44-0500 Respiratory rate 20 /min Louis Schmidt APRN.[employer] TECHNICAL OFFICER Work Phone: [facility] 01-25-2024 12:44-0500 SaO2% (BldA) [Mass fraction] 100 % Louis Schmidt APRN.[employer] TECHNICAL OFFICER Work Phone: [facility] 01-25-2024 12:44-0500 Systolic blood pressure 132 mm[Hg] Louis Schmidt APRN.[employer] TECHNICAL OFFICER Work Phone: [facility] 01-24-2024 13:52-0500 Body mass index (BMI) [Ratio] 46.61 kg/m2 Krislyn Aberegg PA Work Phone: [facility] 01-24-2024 13:52-0500 Body temperature 97.9 [degF] Krislyn Aberegg PA Work Phone: [facility] 01-24-2024 13:52-0500 Body weight 135 kg Krislyn Aberegg PA Work Phone: [facility] 01-24-2024 13:52-0500 Diastolic blood pressure 82 mm[Hg] Krislyn Aberegg PA Work Phone: [facility] 01-24-2024 13:52-0500 Heart rate 73 /min Krislyn Aberegg PA Work Phone: [facility] 01-24-2024 13:52-0500 Respiratory rate 20 /min Krislyn Aberegg PA Work Phone: [facility] 01-24-2024 13:52-0500 SaO2% (BldA) [Mass fraction] 98 % Krislyn Aberegg PA Work Phone: [facility] 01-24-2024 13:52-0500 Systolic blood pressure 128 mm[Hg] Krislyn Aberegg PA Work Phone: [facility] 01-14-2024 14:31-0500 Body height 167.64 cm Naina Da Silva [employer] Work Phone: [facility] 01-14-2024 14:31-0500 Body mass index (BMI) [Ratio] 47.4 kg/m2 Naina Da Silva [employer] Work Phone: [facility] 01-14-2024 14:31-0500 Body weight 133.35 kg Naina Da Silva [employer] Work Phone: [facility] 01-14-2024 14:31-0500 Diastolic blood pressure 78 mm[Hg] Naina Da Silva [employer] Work Phone: [facility] 01-14-2024 14:31-0500 Heart rate 93 /min Naina Da Silva [employer] Work Phone: [facility] 01-14-2024 14:31-0500 Respiratory rate 18 /min Naina Da Silva [employer] Work Phone: [facility] 01-14-2024 14:31-0500 SaO2% (BldA) [Mass fraction] 96 % Naina Da Silva [employer] Work Phone: [facility] 01-14-2024 14:31-0500 Systolic blood pressure 127 mm[Hg] Naina Da Silva [employer] Work Phone: [facility] 01-08-2024 11:52-0500 Body height 170.2 cm Jey Johnson MD Work Phone: [facility] 01-08-2024 11:52-0500 Body mass index (BMI) [Ratio] 46.05 kg/m2 Jey Johnson MD Work Phone: [facility] 01-08-2024 11:52-0500 Body weight 133.36 kg Jey Johnson MD Work Phone: [facility] 01-08-2024 11:52-0500 Diastolic blood pressure 76 mm[Hg] Jey Johnson MD Work Phone: [facility] 01-08-2024 11:52-0500 Heart rate 72 /min Jey Johnson MD Work Phone: [facility] 01-08-2024 11:52-0500 Respiratory rate 21 /min Jey Johnson MD Work Phone: [facility] 01-08-2024 11:52-0500 SaO2% (BldA) [Mass fraction] 100 % Jey Johnson MD Work Phone: [facility] 01-08-2024 11:52-0500 Systolic blood pressure 122 mm[Hg] Jey Johnson MD Work Phone: [facility] 12-31-2023 13:55-0500 Body height 170.2 cm Alisson Lake [employer] Work Phone: [facility] 12-31-2023 13:55-0500 Body mass index (BMI) [Ratio] 46.36 kg/m2 Alisson Aleksandra [employer] Work Phone: [facility] 12-31-2023 13:55-0500 Body weight 134.26 kg Alisson [place] [employer] Work Phone: [facility] 12-31-2023 13:55-0500 Diastolic blood pressure 86 mm[Hg] Alisson [place] [employer] Work Phone: [facility] 12-31-2023 13:55-0500 Heart rate 75 /min Alisson [place] [employer] Work Phone: [facility] 12-31-2023 13:55-0500 SaO2% (BldA) [Mass fraction] 99 % Alisson [place] [employer] Work Phone: [facility] 12-31-2023 13:55-0500 Systolic blood pressure 124 mm[Hg] Alisson [place] [employer] Work Phone: [facility] 10-26-2023 15:23-0400 Body height 170.2 cm Jey Johnson MD Work Phone: [facility] 10-26-2023 15:23-0400 Body mass index (BMI) [Ratio] 43.92 kg/m2 Jey Johnson MD Work Phone: [facility] 10-26-2023 15:23-0400 Body temperature 97.9 [degF] Jey Johnson MD Work Phone: [facility] 10-26-2023 15:23-0400 Body weight 127.19 kg Jey Johnson MD Work Phone: [facility] 10-26-2023 15:23-0400 Heart rate 61 /min Jey Johnson MD Work Phone: [facility] 10-26-2023 15:23-0400 SaO2% (BldA) [Mass fraction] 99 % Jey Johnson MD Work Phone: [facility] 09-13-2023 16:21-0400 Body temperature 98.91 [degF] Lincoln Balderas MD Work Phone: [facility] 09-13-2023 16:21-0400 Body weight 135.5 kg Lincoln Balderas MD Work Phone: [facility] 09-13-2023 16:21-0400 Diastolic blood pressure 68 mm[Hg] Lincoln Balderas MD Work Phone: [facility] 09-13-2023 16:21-0400 Heart rate 85 /min Lincoln Balderas MD Work Phone: [facility] 09-13-2023 16:21-0400 Respiratory rate 20 /min Lincoln Balderas MD Work Phone: [facility] 09-13-2023 16:21-0400 SaO2% (BldA) [Mass fraction] 95 % Lincoln Balderas MD Work Phone: [facility] 09-13-2023 16:21-0400 Systolic blood pressure 104 mm[Hg] Lincoln Balderas MD Work Phone: [facility] 06-03-2023 22:04-0400 Body temperature 97 [degF] [facility] Work Phone: [facility] 06-03-2023 22:04-0400 Diastolic blood pressure 72 mm[Hg] [facility] Work Phone: [facility] 06-03-2023 22:04-0400 Heart rate 102 /min [facility] Work Phone: 6(071)434-984966 [place] [address] 06-03-2023 22:04-0400 Respiratory rate 16 /min [facility] Work Phone: 1(068)392-354266 [place] [address] 06-03-2023 22:04-0400 SaO2% (BldA) [Mass fraction] 96 % [facility] Work Phone: [facility] 06-03-2023 22:04-0400 Systolic blood pressure 120 mm[Hg] [facility] Work Phone: [facility] 06-03-2023 20:26-0400 Body height 167.64 cm [facility] Work Phone: [facility] 06-03-2023 20:26-0400 Body mass index (BMI) [Ratio] 47.7 kg/m2 [facility] Work Phone: 8(851)984-017366 [place] [address] 06-03-2023 20:26-0400 Body weight 134.03 kg [facility] Work Phone: 9(291)066-298341 [place] [address] 05-08-2023 16:48-0400 Body temperature 97.4 [degF] [facility] Work Phone: 2(347)581-614841 [place] [address] 05-08-2023 16:48-0400 Diastolic blood pressure 69 mm[Hg] [facility] Work Phone: 9(805)176-189741 [place] [address] 05-08-2023 16:48-0400 Heart rate 91 /min [facility] Work Phone: 8(225)741-431441 [place] [address] 05-08-2023 16:48-0400 Respiratory rate 18 /min [facility] Work Phone: 8(325)274-424241 [place] [address] 05-08-2023 16:48-0400 SaO2% (BldA) [Mass fraction] 98 % [facility] Work Phone: 8(151)592-254541 [place] [address] 05-08-2023 16:48-0400 Systolic blood pressure 114 mm[Hg] [facility] Work Phone: 0(306)466-087441 [place] [address] 05-08-2023 14:46-0400 Body height 167.64 cm [facility] Work Phone: 4(020)105-631241 [place] [address] 05-08-2023 14:46-0400 Body mass index (BMI) [Ratio] 45.3 kg/m2 [facility] Work Phone: 6(140)999-008841 [place] [address] 05-08-2023 14:46-0400 Body weight 127.5 kg [facility] Work Phone: 6(098)938-566041 [place] [address] 04-08-2023 06:21-0500 Body temperature 98 [degF] [facility] Work Phone: 4(888)535-766741 [place] [address] 04-08-2023 06:21-0500 Diastolic blood pressure 74 mm[Hg] [facility] Work Phone: 8(720)001-680141 [place] [address] 04-08-2023 06:21-0500 Heart rate 94 /min [facility] Work Phone: 1(582)188-120441 [place] [address] 04-08-2023 06:21-0500 Respiratory rate 18 /min [facility] Work Phone: 5(245)760-043541 [place] [address] 04-08-2023 06:21-0500 SaO2% (BldA) [Mass fraction] 99 % [facility] Work Phone: 6(809)239-176941 [place] [address] 04-08-2023 06:21-0500 Systolic blood pressure 143 mm[Hg] [facility] Work Phone: 4(241)536-059941 [place] [address] 04-07-2023 16:02-0500 Body height 167.64 cm [facility] Work Phone: 8(893)043-086341 [place] [address] 04-07-2023 16:02-0500 Body mass index (BMI) [Ratio] 47.3 kg/m2 [facility] Work Phone: 2(724)346-957541 [place] [address] 04-07-2023 16:02-0500 Body weight 133 kg [facility] Work Phone: 5(694)699-872441 [place] [address] 03-20-2023 08:20-0500 Body mass index (BMI) [Ratio] 47 kg/m2 [facility] Work Phone: 4(497)240-984241 [place] [address] 03-20-2023 08:20-0500 Body temperature 98.6 [degF] [facility] Work Phone: 4(898)039-726841 [place] [address] 03-20-2023 08:20-0500 Body weight 131.99 kg [facility] Work Phone: 4(529)610-364041 [place] [address] 03-20-2023 08:20-0500 Diastolic blood pressure 76 mm[Hg] [facility] Work Phone: 6(030)279-992041 [place] [address] 03-20-2023 08:20-0500 Heart rate 80 /min [facility] Work Phone: 7(031)333-781641 [place] [address] 03-20-2023 08:20-0500 Respiratory rate 18 /min [facility] Work Phone: 1(685)886-214541 [place] [address] 03-20-2023 08:20-0500 SaO2% (BldA) [Mass fraction] 97 % [facility] Work Phone: 5(347)751-122341 [place] [address] 03-20-2023 08:20-0500 Systolic blood pressure 112 mm[Hg] [facility] Work Phone: 4(457)554-760741 [place] [address] 12-20-2022 11:29-0400 Body temperature 98.1 [degF] [facility] Work Phone: 0(623)797-461741 [place] [address] 12-20-2022 11:29-0400 Diastolic blood pressure 83 mm[Hg] [facility] Work Phone: 4(885)585-926541 [place] [address] 12-20-2022 11:29-0400 Heart rate 85 /min [facility] Work Phone: 7(306)589-036541 [place] [address] 12-20-2022 11:29-0400 Respiratory rate 12 /min [facility] Work Phone: 5(737)722-573141 [place] [address] 12-20-2022 11:29-0400 SaO2% (BldA) [Mass fraction] 100 % [facility] Work Phone: 9(088)535-439241 [place] [address] 12-20-2022 11:29-0400 Systolic blood pressure 129 mm[Hg] [facility] Work Phone: 7(471)391-548841 [place] [address] 12-18-2022 19:24-0400 Body height 167.64 cm [facility] Work Phone: 2(887)699-761841 [place] [address] 12-18-2022 19:24-0400 Body mass index (BMI) [Ratio] 45.9 kg/m2 [facility] Work Phone: 2(792)705-579741 [place] [address] 12-18-2022 19:24-0400 Body weight 129.1 kg [facility] Work Phone: 9(129)305-121941 [place] [address] 12-18-2022 17:03-0400 Body mass index (BMI) [Ratio] 47.5 kg/m2 [facility] Work Phone: 5(459)010-884841 [place] [address] 12-18-2022 17:03-0400 Body weight 133.4 kg [facility] Work Phone: 4(532)985-584741 [place] [address] 12-18-2022 17:02-0400 Diastolic blood pressure 89 mm[Hg] [facility] Work Phone: 9(181)457-726841 [place] [address] 12-18-2022 17:02-0400 Heart rate 93 /min [facility] Work Phone: 7(693)795-138041 [place] [address] 12-18-2022 17:02-0400 Respiratory rate 17 /min [facility] Work Phone: 8(631)450-286141 [place] [address] 12-18-2022 17:02-0400 SaO2% (BldA) [Mass fraction] 99 % [facility] Work Phone: 0(856)508-519941 [place] [address] 12-18-2022 17:02-0400 Systolic blood pressure 130 mm[Hg] [facility] Work Phone: 8(914)003-834141 [place] [address] 12-18-2022 12:28-0400 Body height 167.64 cm [facility] Work Phone: 8(570)530-619641 [place] [address] 12-18-2022 12:28-0400 Body temperature 97.1 [degF] [facility] Work Phone: 3(313)690-417241 [place] [address] 12-09-2022 20:10-0400 Body temperature 97.8 [degF] [facility] Work Phone: 0(221)717-572541 [place] [address] 12-09-2022 19:31-0400 Body height 170.18 cm [facility] Work Phone: 0(244)587-687641 [place] [address] 12-09-2022 19:31-0400 Body mass index (BMI) [Ratio] 42.9 kg/m2 [facility] Work Phone: 8(304)947-660341 [place] [address] 12-09-2022 19:31-0400 Body weight 124.28 kg [facility] Work Phone: 4(792)549-007441 [place] [address] 12-09-2022 19:31-0400 Diastolic blood pressure 78 mm[Hg] [facility] Work Phone: 8(047)893-916041 [place] [address] 12-09-2022 19:31-0400 Heart rate 98 /min [facility] Work Phone: 3(765)887-135041 [place] [address] 12-09-2022 19:31-0400 Respiratory rate 15 /min [facility] Work Phone: 4(959)964-869041 [place] [address] 12-09-2022 19:31-0400 SaO2% (BldA) [Mass fraction] 100 % [facility] Work Phone: 5(324)186-788041 [place] [address] 12-09-2022 19:31-0400 Systolic blood pressure 130 mm[Hg] [facility] Work Phone: 7(189)573-004341 [place] [address] 11-23-2022 00:02-0400 Body height 167.64 cm [facility] Work Phone: 6(766)782-722541 [place] [address] 11-23-2022 00:02-0400 Body mass index (BMI) [Ratio] 44.4 kg/m2 [facility] Work Phone: 9(312)580-800741 [place] [address] 11-23-2022 00:02-0400 Body weight 125 kg [facility] Work Phone: 3(335)842-561741 [place] [address] 11-22-2022 22:15-0400 Diastolic blood pressure 65 mm[Hg] [facility] Work Phone: 2(142)063-369941 [place] [address] 11-22-2022 22:15-0400 Heart rate 66 /min [facility] Work Phone: 4(831)687-181641 [place] [address] 11-22-2022 22:15-0400 Respiratory rate 18 /min [facility] Work Phone: 8(834)188-131741 [place] [address] 11-22-2022 22:15-0400 SaO2% (BldA) [Mass fraction] 99 % [facility] Work Phone: 9(768)896-613941 [place] [address] 11-22-2022 22:15-0400 Systolic blood pressure 133 mm[Hg] [facility] Work Phone: 5(063)170-378141 [place] [address] 11-22-2022 20:15-0400 Body temperature 97.7 [degF] [facility] Work Phone: 9(069)298-095141 [place] [address] 10-03-2022 08:43-0400 Body height 168.91 cm [facility] Work Phone: 3(676)961-084041 [place] [address] 10-03-2022 08:33-0400 Body mass index (BMI) [Ratio] 47.2 kg/m2 [facility] Work Phone: 1(169)359-884441 [place] [address] 10-03-2022 08:33-0400 Body weight 134.77 kg [facility] Work Phone: 8(687)441-388141 [place] [address] 10-03-2022 08:33-0400 Diastolic blood pressure 76 mm[Hg] [facility] Work Phone: 5(089)557-347241 [place] [address] 10-03-2022 08:33-0400 Systolic blood pressure 124 mm[Hg] [facility] Work Phone: 8(038)353-690841 [place] [address] 09-19-2022 14:44-0400 Diastolic blood pressure 70 mm[Hg] [facility] Work Phone: 7(179)975-130941 [place] [address] 09-19-2022 14:44-0400 Heart rate 107 /min [facility] Work Phone: 2(150)783-209441 [place] [address] 09-19-2022 14:44-0400 Respiratory rate 18 /min [facility] Work Phone: 1(255)516-730941 [place] [address] 09-19-2022 14:44-0400 SaO2% (BldA) [Mass fraction] 98 % [facility] Work Phone: 6(227)043-859741 [place] [address] 09-19-2022 14:44-0400 Systolic blood pressure 142 mm[Hg] [facility] Work Phone: 8(007)777-861341 [place] [address] 09-19-2022 13:10-0400 Body mass index (BMI) [Ratio] 47.3 kg/m2 [facility] Work Phone: 4(323)708-163441 [place] [address] 09-19-2022 13:10-0400 Body weight 135.17 kg [facility] Work Phone: 6(594)125-610141 [place] [address] 08-15-2022 22:13-0400 Diastolic blood pressure 76 mm[Hg] [facility] Work Phone: 3(167)335-202741 [place] [address] 08-15-2022 22:13-0400 Heart rate 80 /min [facility] Work Phone: 7(174)052-787441 [place] [address] 08-15-2022 22:13-0400 Respiratory rate 18 /min [facility] Work Phone: 2(920)990-108741 [place] [address] 08-15-2022 22:13-0400 Systolic blood pressure 128 mm[Hg] [facility] Work Phone: 2(483)556-877741 [place] [address] 08-15-2022 19:01-0400 Body height 170.18 cm [facility] Work Phone: 8(668)615-883141 [place] [address] 08-15-2022 19:01-0400 Body mass index (BMI) [Ratio] 46.5 kg/m2 [facility] Work Phone: 0(229)974-805341 [place] [address] 08-15-2022 19:01-0400 Body temperature 98.2 [degF] [facility] Work Phone: 6(993)536-160941 [place] [address] 08-15-2022 19:01-0400 Body weight 134.76 kg [facility] Work Phone: 1(521)183-721641 [place] [address] 08-15-2022 19:01-0400 SaO2% (BldA) [Mass fraction] 100 % [facility] Work Phone: 7(945)760-918141 [place] [address] 08-08-2022 15:25-0400 Body temperature 98 [degF] [facility] Work Phone: 4(580)103-043741 [place] [address] 08-08-2022 15:25-0400 Diastolic blood pressure 67 mm[Hg] [facility] Work Phone: 1(635)588-825841 [place] [address] 08-08-2022 15:25-0400 Heart rate 83 /min [facility] Work Phone: 4(368)892-886341 [place] [address] 08-08-2022 15:25-0400 Respiratory rate 16 /min [facility] Work Phone: 1(944)800-634541 [place] [address] 08-08-2022 15:25-0400 SaO2% (BldA) [Mass fraction] 100 % [facility] Work Phone: 6(973)528-500641 [place] [address] 08-08-2022 15:25-0400 Systolic blood pressure 118 mm[Hg] [facility] Work Phone: 6(724)251-973441 [place] [address] 08-08-2022 12:47-0400 Body height 170.18 cm [facility] Work Phone: 9(389)205-203041 [place] [address] 08-08-2022 12:47-0400 Body mass index (BMI) [Ratio] 46.4 kg/m2 [facility] Work Phone: 0(577)837-219941 [place] [address] 08-08-2022 12:47-0400 Body weight 134.5 kg [facility] Work Phone: 1(333)769-503641 [place] [address] 02-28-2022 09:11-0500 Body height 170.18 cm [facility] Work Phone: 9(943)912-400341 [place] [address] 02-28-2022 08:59-0500 Body mass index (BMI) [Ratio] 45.6 kg/m2 [facility] Work Phone: 0(755)827-547441 [place] [address] 02-28-2022 08:59-0500 Body weight 132.16 kg [facility] Work Phone: 0(849)433-394641 [place] [address] 02-28-2022 08:59-0500 Diastolic blood pressure 72 mm[Hg] [facility] Work Phone: 0(339)475-909241 [place] [address] 02-28-2022 08:59-0500 Systolic blood pressure 120 mm[Hg] [facility] Work Phone: 5(458)079-056241 [place] [address] 01-24-2022 23:05-0500 Diastolic blood pressure 68 mm[Hg] [facility] Work Phone: 3(929)700-789941 [place] [address] 01-24-2022 23:05-0500 Heart rate 84 /min [facility] Work Phone: 1(284)357-184241 [place] [address] 01-24-2022 23:05-0500 Respiratory rate 17 /min [facility] Work Phone: 1(127)956-246441 [place] [address] 01-24-2022 23:05-0500 SaO2% (BldA) [Mass fraction] 95 % [facility] Work Phone: 7(583)071-117941 [place] [address] 01-24-2022 23:05-0500 Systolic blood pressure 117 mm[Hg] [facility] Work Phone: 8(228)923-176441 [place] [address] 01-24-2022 16:45-0500 Body height 170.18 cm [facility] Work Phone: 8(007)418-073041 [place] [address] Work Phone: 01-24-2022 16:45-0500 Body mass index (BMI) [Ratio] 45.6 kg/m2 [facility] Work Phone: 1(888)375-238341 [place] [address] 01-24-2022 16:45-0500 Body temperature 99 [degF] [facility] Work Phone: 9(476)467-314541 [place] [address] 01-24-2022 16:45-0500 Body weight 131.99 kg [facility] Work Phone: 7(421)[phone] [place] [address] 01-15-2022 15:27-0500 Diastolic blood pressure 80 mm[Hg] [facility] Work Phone: 2(771)304-246741 [place] [address] 01-15-2022 15:27-0500 Heart rate 100 /min [facility] Work Phone: 2(857)374-555841 [place] [address] 01-15-2022 15:27-0500 Respiratory rate 17 /min [facility] Work Phone: 8(130)916-481241 [place] [address] 01-15-2022 15:27-0500 SaO2% (BldA) [Mass fraction] 97 % [facility] Work Phone: 2(717)861-863441 [place] [address] 01-15-2022 15:27-0500 Systolic blood pressure 124 mm[Hg] [facility] Work Phone: 1(885)398-776141 [place] [address] 01-15-2022 12:14-0500 Body mass index (BMI) [Ratio] 45.4 kg/m2 [facility] Work Phone: 3(233)949-964941 [place] [address] 01-15-2022 12:14-0500 Body temperature 98.2 [degF] [facility] Work Phone: 0(569)429-960141 [place] [address] 01-15-2022 12:14-0500 Body weight 131.54 kg [facility] Work Phone: 1(836)102-323141 [place] [address] 12-12-2021 16:21-0400 Body temperature 99 [degF] Lincoln Balderas MD Work Phone: [facility] 12-12-2021 16:21-0400 Body weight 130.64 kg Lincoln Balderas MD Work Phone: [facility] 12-12-2021 16:21-0400 Diastolic blood pressure 78 mm[Hg] Lincoln Balderas MD Work Phone: [facility] 12-12-2021 16:21-0400 Heart rate 120 /min Lincoln Balderas MD Work Phone: [facility] 12-12-2021 16:21-0400 Respiratory rate 18 /min Lincoln Balderas MD Work Phone: [facility] 12-12-2021 16:21-0400 SaO2% (BldA) [Mass fraction] 99 % Lincoln Balderas MD Work Phone: [facility] 12-12-2021 16:21-0400 Systolic blood pressure 118 mm[Hg] Lincoln Balderas MD Work Phone: [facility] 09-28-2021 09:12-0400 Body height 170.18 cm [facility] Work Phone: [facility] Work Phone: 09-28-2021 09:11-0400 Body mass index (BMI) [Ratio] 43.8 kg/m2 [facility] Work Phone: [facility] Work Phone: 09-28-2021 09:11-0400 Body weight 127 kg [facility] Work Phone: [facility] Work Phone: 09-28-2021 09:11-0400 Diastolic blood pressure 80 mm[Hg] [facility] Work Phone: [facility] Work Phone: 09-28-2021 09:11-0400 Systolic blood pressure 110 mm[Hg] [facility] Work Phone: [facility] Work Phone: 09-10-2021 12:35-0400 Diastolic blood pressure 75 mm[Hg] [facility] Work Phone: [facility] Work Phone: 09-10-2021 12:35-0400 Heart rate 82 /min [facility] Work Phone: [facility] Work Phone: 09-10-2021 12:35-0400 Respiratory rate 15 /min [facility] Work Phone: [facility] Work Phone: 09-10-2021 12:35-0400 SaO2% (BldA) [Mass fraction] 98 % [facility] Work Phone: [facility] Work Phone: 09-10-2021 12:35-0400 Systolic blood pressure 146 mm[Hg] [facility] Work Phone: [facility] Work Phone: 09-10-2021 09:41-0400 Body temperature 98.9 [degF] [facility] Work Phone: [facility] Work Phone: 09-10-2021 02:42-0400 Body height 170.18 cm [facility] Work Phone: [facility] Work Phone: 09-10-2021 02:42-0400 Body mass index (BMI) [Ratio] 42.9 kg/m2 [facility] Work Phone: [facility] Work Phone: 09-10-2021 02:42-0400 Body weight 124.31 kg [facility] Work Phone: [facility] Work Phone: 09-03-2021 10:52-0400 Body height 170.18 cm [facility] Work Phone: [facility] Work Phone: 09-03-2021 10:52-0400 Body mass index (BMI) [Ratio] 42.3 kg/m2 [facility] Work Phone: [facility] Work Phone: 09-03-2021 10:52-0400 Body temperature 97.9 [degF] [facility] Work Phone: [facility] Work Phone: 09-03-2021 10:52-0400 Body weight 122.46 kg [facility] Work Phone: [facility] Work Phone: 09-03-2021 10:52-0400 Diastolic blood pressure 80 mm[Hg] [facility] Work Phone: [facility] Work Phone: 09-03-2021 10:52-0400 Heart rate 73 /min [facility] Work Phone: [facility] Work Phone: 09-03-2021 10:52-0400 Respiratory rate 16 /min [facility] Work Phone: [facility] Work Phone: 09-03-2021 10:52-0400 SaO2% (BldA) [Mass fraction] 97 % [facility] Work Phone: [facility] Work Phone: 09-03-2021 10:52-0400 Systolic blood pressure 116 mm[Hg] [facility] Work Phone: [facility] Work Phone: 08-29-2021 22:32-0400 Diastolic blood pressure 74 mm[Hg] [facility] Work Phone: [facility] Work Phone: 08-29-2021 22:32-0400 Heart rate 102 /min [facility] Work Phone: [facility] Work Phone: 08-29-2021 22:32-0400 Respiratory rate 15 /min [facility] Work Phone: [facility] Work Phone: 08-29-2021 22:32-0400 SaO2% (BldA) [Mass fraction] 99 % [facility] Work Phone: [facility] Work Phone: 08-29-2021 22:32-0400 Systolic blood pressure 135 mm[Hg] [facility] Work Phone: [facility] Work Phone: 08-29-2021 18:19-0400 Body height 170.18 cm [facility] Work Phone: [facility] Work Phone: 08-29-2021 18:19-0400 Body mass index (BMI) [Ratio] 44.9 kg/m2 [facility] Work Phone: [facility] Work Phone: 08-29-2021 18:19-0400 Body temperature 98.3 [degF] [facility] Work Phone: [facility] Work Phone: 08-29-2021 18:19-0400 Body weight 130.18 kg [facility] Work Phone: [facility] Work Phone: 08-16-2021 19:45-0400 Body height 170.18 cm [facility] Work Phone: [facility] Work Phone: 08-16-2021 19:45-0400 Body mass index (BMI) [Ratio] 44.6 kg/m2 [facility] Work Phone: [facility] Work Phone: 08-16-2021 19:45-0400 Body temperature 98 [degF] [facility] Work Phone: [facility] Work Phone: 08-16-2021 19:45-0400 Body weight 129.3 kg [facility] Work Phone: [facility] Work Phone: 08-16-2021 19:45-0400 Diastolic blood pressure 86 mm[Hg] [facility] Work Phone: [facility] Work Phone: 08-16-2021 19:45-0400 Heart rate 98 /min [facility] Work Phone: [facility] Work Phone: 08-16-2021 19:45-0400 Respiratory rate 14 /min [facility] Work Phone: [facility] Work Phone: 08-16-2021 19:45-0400 SaO2% (BldA) [Mass fraction] 95 % [facility] Work Phone: [facility] Work Phone: 08-16-2021 19:45-0400 Systolic blood pressure 178 mm[Hg] [facility] Work Phone: [facility] Work Phone: 08-08-2021 08:10-0400 Body mass index (BMI) [Ratio] 44.5 kg/m2 [facility] Work Phone: [facility] Work Phone: 08-08-2021 08:10-0400 Body weight 129.04 kg [facility] Work Phone: [facility] Work Phone: 08-08-2021 08:10-0400 Diastolic blood pressure 86 mm[Hg] [facility] Work Phone: [facility] Work Phone: 08-08-2021 08:10-0400 Systolic blood pressure 138 mm[Hg] [facility] Work Phone: [facility] Work Phone: 12-14-2020 20:47-0400 Heart rate 76 /min ERNESTO MILEST DO [facility] 12-14-2020 20:47-0400 Respiratory rate 18 /min ERNESTO MILEST DO [facility] 12-14-2020 18:35-0400 Body temperature 98.42 [degF] ERNESTO BURK DO [facility] 12-14-2020 18:35-0400 Body weight 118.2 kg ERNESTO BURK DO [facility] 12-14-2020 18:35-0400 Diastolic blood pressure 84 mm[Hg] ERNESTO BURK DO [facility] 12-14-2020 18:35-0400 Heart rate 78 /min ERNESTO BURK DO [facility] 12-14-2020 18:35-0400 Respiratory rate 18 /min ERNESTO BURK DO [facility] 12-14-2020 18:35-0400 Systolic blood pressure 139 mm[Hg] ERNESTO BURK DO [facility] Encounters Encounter Date Encounter Type Care Provider Facility Start: 09-18-2024 End: 09-18-2024 Telephone encounter Arsenio Solorio [employer] Endocrinology Start: 09-04-2024 End: 09-04-2024 Naina Da Silva [facility] Work Phone: -Emergency Department Work Phone: Start: 09-04-2024 End: 09-04-2024 Emergency department patient visit Naina Da Silva [facility] Work Phone: -Emergency Department Start: 09-02-2024 End: 09-02-2024 ambulatory Naina Da Silva [facility] Work Phone: -Laboratory [facility] Start: 09-02-2024 End: 09-02-2024 Patient encounter procedure VSC Naina Da Silva [facility] -Laboratory [facility] Start: 09-02-2024 [facility] Naina santiago [employer] -Laboratory [facility] Start: 09-02-2024 End: 09-02-2024 ambulatory Naina Da Silva [facility] Facility:[facility] Start: 08-28-2024 End: 08-28-2024 Telephone encounter Arsenio Solorio [employer] REGULATOR INSPECTOR Endocrinology Comment on above: Ambulatory Social Wo rk Start: 08-26-2024 End: 08-26-2024 ambulatory Maria Elena France Fine [employer] Chair Work Phone: Endocrinology Start: 08-07-2024 End: 08-07-2024 ambulatory Naina Da Silva [facility] Work Phone: [facility] Work Phone: Start: 08-07-2024 End: 08-07-2024 Patient encounter procedure Andreas Friend DO [facility] Work Phone: Start: 08-07-2024 End: 08-07-2024 Andreas Friend DO -[facility] Work Phone: Start: 08-07-2024 End: 08-07-2024 ambulatory Andreas Oliva Facility:[facility] Start: 08-01-2024 End: 08-01-2024 [facility] Laura Carson PhD Work Phone: Endocrinology Comment on above: Obesity, Class III, BMI 40-49.9 (morbid obesity) (HCC) (Primary Dx); Binge eating disorder, moderate; Bipolar affective disorder, currently depressed, mild (HCC); Generalized anxiety disorder Start: 07-24-2024 End: 07-24-2024 Patient encounter procedure Shawanda Ramires NP-C -[facility] Work Phone: Start: 07-24-2024 End: 07-24-2024 Shawanda CROWDERC -[facility] Work Phone: Start: 07-24-2024 End: 07-24-2024 ambulatory Naina Da Silva [employer] [facility] Work Phone: [facility] Work Phone: Start: 07-15-2024 End: 07-15-2024 Patient encounter procedure Jey Johnson MD Work Phone: Endocrinology Comment on above: PCOS (polycystic ova sivakumar syndrome) [E28.2] (Primary Dx) Start: 07-15-2024 End: 07-15-2024 ambulatory JEY JOHNSON Facility:[facility] Start: 07-08-2024 End: 07-08-2024 Patient encounter procedure Andreas Oliva [facility] Work Phone: Start: 07-08-2024 End: 07-08-2024 Andreasneal Oliva [facility] Work Phone: Start: 07-08-2024 End: 07-08-2024 ambulatory Naina Da Silva [employer] [facility] Work Phone: [facility] Work Phone: Start: 06-24-2024 End: 06-27-2024 Refill Jey Johnson MD Work Phone: Endocrinology Comment on above: Refill Request Start: 06-20-2024 Non-patient / Non-visit Dr. Ozzy Greco MD -[facility] Start: 06-20-2024 End: 06-20-2024 ambulatory Naina Da Silva [facility] Work Phone: [facility] Work Phone: Start: 06-20-2024 End: 06-20-2024 Patient encounter procedure Shawanda Ramires [employer] [facility] -Cardiovascular Services Work Phone: Start: 06-20-2024 End: 06-20-2024 Dr. Ozzy Greco MD -[facility] Start: 06-20-2024 End: 06-20-2024 ambulatory Shawanda Ramires NP Facility:[facility] Start: 06-10-2024 Patient encounter status Naina Da Silva [facility] Work Phone: [facility] Start: 06-10-2024 End: 06-10-2024 Patient encounter procedure Zebulun Beam [facility] -Laboratory, [facility] Start: 06-10-2024 End: 06-10-2024 Zebulun Beam [facility] -Laboratory [place] [facility] Start: 06-10-2024 End: 06-10-2024 ambulatory Zebulun Beam VSC Facility:[facility] Start: 06-05-2024 Non-patient / Non-visit Dr. Marco Bartlett MD -[facility] Work Phone: Start: 06-05-2024 ambulatory Shawanda Ramires [facility] Facili ty:[facility] Start: 06-05-2024 Registered Referred Shawanda Ramires [employer] [facility] -Cardiovascular Services Work Phone: Start: 06-05-2024 Dr. Marco Bartlett MD - [facility] Work Phone: Start: 06-03-2024 End: 06-03-2024 Dr. Jaylon Galicia MD -Emergency Departm ent Work Phone: Start: 06-03-2024 End: 06-03-2024 Emergency department patient visit Naina Avinash [employer] Work Phone: -Emergency Department Work Phone: Start: 06-03-2024 End: 06-03-2024 ambulatory Naina Avinash [facility] Work Phone: [facility] Work Phone: Start: 06-03-2024 End: 06-03-2024 Patient encounter procedure Zebulun Beam [facility] -[facility] Work Phone: Start: 06-03-2024 End: 06-03-2024 Zebulun Beam [facility] -[facility] Work Phone: Start: 06-02-2024 End: 06-02-2024 ED PHYSICIAN PROVIDER -Emergency Departm ent Work Phone: Start: 06-02-2024 End: 06-02-2024 Emergency department patient visit Naina Avinash [employer] [facility] [facility] Work Phone: -Emergency Department Work Phone: Start: 06-02-2024 End: 06-03-2024 [facility] Laura Carson PhD Work Phone: Endocrinology Comment on above: Bipolar affective di sorder, currently depressed, mild (HCC) (Primary Dx); Obesity, Class III, BMI 40-49.9 (morbid obesity) (HCC); Binge eating disorder, moderate; Generalized anxiety disorder Start: 05-29-2024 End: 05-29-2024 Patient encounter procedure Shawanda Ramires [employer] -[facility] Work Phone: Start: 05-29-2024 End: 05-29-2024 Shawanda Ramires [employer] -[facility] Work Phone: Start: 05-29-2024 End: 05-29-2024 ambulatory Naina Da Silva VSC Facility:[facility] Start: 05-23-2024 End: 05-23-2024 ambulatory [facility] Avinash [employer] Work Phone: [facility] Work Phone: Start: 05-23-2024 End: 05-23-2024 Patient encounter procedure Karina Guerra [employer] -Laboratory Work Phone: Start: 05-23-2024 End: 05-23-2024 Karina Guerra [employer] [facility] [facility] -Laboratory Work Phone: Start: 05-23-2024 End: 05-23-2024 ambulatory Vazquezkwasideb Lim VS Facility:[facility] Start: 05-16-2024 End: 05-16-2024 [facility] Huey Cortes DO, PhD Work Phone: Endocrinology Comment on above: Obesity, Class III, BMI 40-49.9 (morbid obesity) (HCC) (Primary Dx); Type 2 diabetes mellitus with other specified complication, without long-term current use of insulin (HCC); Primary hypertension; Binge eating disorder, moderate; Hypercholesterolemia; Gastroparesis; Steatosis of liver; 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 Stan Lin DO -Emergency Departmen t Work Phone: Start: 05-14-2024 End: 05-15-2024 Emergency department patient visit Naina Da Silva [employer] [facility] Work Phone: -Emergency Department Work Phone: Start: 05-08-2024 End: 05-08-2024 Dr. Stan Lin DO -Emergency Departmen t Work Phone: Start: 05-08-2024 End: 05-08-2024 Emergency department patient visit Naina Da Silva [employer] Work Phone: -Emergency Department Work Phone: Start: 05-07-2024 End: 05-07-2024 ambulatory Naina Da Silva [employer] Work Phone: [facility] Work Phone: Start: 05-07-2024 End: 05-07-2024 Patient encounter procedure Jakin Beam [facility] -Laboratory, [facility] Start: 05-07-2024 End: 05-07-2024 Zebulun Beam [facility] [facility] -Laboratory [facility] Start: 05-07-2024 End: 05-07-2024 ambulatory Naina [facility] Facility:[facility] Start: 04-22-2024 End: 04-22-2024 ambulatory Naina Da Silva [employer] Work Phone: [facility] Work Phone: Start: 04-22-2024 End: 04-22-2024 Patient encounter procedure Zebulun Beam [facility] [facility] -Laboratory, [facility] Start: 04-22-2024 End: 04-22-2024 ambulatory [facility] Facility:[facility] Start: 04-15-2024 End: 04-15-2024 Follow-up encounter Maru HICKEY Work Phone: [facility] Start: 04-15-2024 End: 04-15-2024 [facility] Start: 04-15-2024 End: 04-15-2024 Patient encounter procedure Jey Johnson MD Work Phone: Endocrinology Comment on above: Obesity, Class III, BMI 40-49.9 (morbid obesity) (HCC) (Primary Dx); PCOS (polycystic ovarian syndrome) Start: 04-14-2024 End: 04-14-2024 ambulatory [facility] Facility:[facility] Start: 04-14-2024 End: 04-14-2024 Office outpatient visit 15 minutes Lincoln Balderas MD Work Phone: [facility] Comment on above: Influenza-like illne ss (Primary Dx) Start: 02-25-2024 End: 02-25-2024 ambulatory Carissa Presley VELIZ Work Phone: Endocrinology Comment on above: PCOS (polycystic ova sivakumar syndrome) (Primary Dx); Obesity, Class III, BMI 40-49.9 (morbid obesity) (HCC) Start: 02-25-2024 End: 02-25-2024 Telemedicine consultation with patient Carissa Sherwood JOSE ALFREDO Work Phone: Endocrinology Start: 02-05-2024 End: 02-05-2024 Patient encounter procedure Karuna Lim NP-C -Laboratory, [facility] Start: 02-05-2024 End: 02-05-2024 ambulatory [facility] Facility:[facility] Start: 01-25-2024 End: 01-25-2024 Telephone encounter Mallika Mo APRN.[employer] TECHNICAL OFFICER Work Phone: [facility] Comment on above: Results Start: 01-25-2024 End: 01-25-2024 Patient encounter procedure Louis Schmidt APRN.[employer] TECHNICAL OFFICER Work Phone: [facility] Comment on above: Acute otitis media, left (Primary Dx); Acute otitis externa of left ear, unspecified type Start: 01-25-2024 End: 01-25-2024 ambulatory [facility] Facility:[facility] Start: 01-24-2024 End: 01-24-2024 ambulatory JEYMer JOHNSON Facility:[facility] Start: 01-24-2024 End: 01-24-2024 Patient encounter procedure Maru HICKEY Work Phone: [facility] Comment on above: Sore throat (Primary Dx); URI, acute Start: 01-14-2024 End: 01-14-[address] Marco Bartlett MD -[facility] Work Phone: Start: 01-14-2024 End: 01-14-2024 ambulatory Naina Da Silva [facility] Facility:[facility] Start: 01-08-2024 End: 01-08-2024 ambulatory JEY JOHNSON Facility:[facility] Start: 01-08-2024 End: 01-08-2024 Patient encounter procedure Jey Johnson MD Work Phone: Endocrinology Comment on above: PCOS (polycystic ova sivakumar syndrome) (Primary Dx); Obesity, Class III, BMI 40-49.9 (morbid obesity) (HCC) Start: 12-31-2023 End: 12-31-2023 Bamboo flowsheet Alisson S Weygandt [employer] Work Phone: [facility] Start: 12-31-2023 End: 12-31-2023 Bamboo flowsheet Alisson S Weygandt [employer] Work Phone: [facility] Start: 12-31-2023 End: 12-31-2023 Office outpatient visit 25 minutes Alisson S Weawildaandt [employer] Work Phone: [facility] Comment on above: Morbid obesity with BMI of 45.0-49.9, adult (CMS/HCC) (Primary Dx); Chronic migraine without aura, intractable, without status migrainosus (CMS/HCC) Start: 12-31-2023 End: 12-31-2023 ambulatory ALISSON S WEYGANDT Not Available Start: 12-19-2023 End: 12-19-2023 Telephone encounter Jey Johnson MD Work Phone: Endocrinology Comment on above: Release Of Medical R ecords Start: 12-19-2023 End: 12-19-2023 ambulatory [facility] Facility:[facility] Start: 12-06-2023 End: 12-17-2023 Refill Alisson [place] NP Work Phone: [facility] Comment on above: Chronic migraine wit hout aura, intractable, without status migrainosus ([facility]) Start: 12-05-2023 End: 12-05-2023 ambulatory [facility] Facility:[facility] Start: 11-27-2023 End: 11-27-2023 Emergency department patient visit [facility] Facility:[facility] Start: 11-27-2023 End: 11-27-2023 [facility] Start: 11-27-2023 End: 11-27-2023 Patient encounter procedure Louis Schmidt APRN.CNP Work Phone: [facility] Comment on above: Pain (Primary Dx) Start: 11-21-2023 End: 11-21-2023 ambulatory [facility] Facility:[facility] Start: 11-13-2023 Encounter for other preprocedural examination Andreas Oliva [facility] Start: 10-26-2023 End: 10-26-2023 ambulatory [facility] Facility:[facility] Start: 10-26-2023 End: 10-26-2023 Patient encounter procedure Jey Johnson MD Work Phone: Endocrinology Comment on above: PCOS (polycystic ova sivakumar syndrome) (Primary Dx); Obesity, Class III, BMI 40-49.9 (morbid obesity) ([facility]) Start: 2023 End: 2023 ambulatory [facility] Facility:[facility] Start: 10-19-2023 End: 10-19-2023 ambulatory [facility] Facility:[facility] Start: 10-17-2023 Encounter for gynecological examination (general) (routine) with abnormal findings Zeus Miller [facility] Start: 10-17-2023 End: 10-17-2023 ambulatory Naina Da Silva [facility] Facility:[facility] Start: 10-15-2023 End: 10-15-2023 ambulatory Naina Da Silva [facility] Facility:[facility] Start: 10-12-2023 End: 10-12-2023 ambulatory Naina Da Silva [facility] Facility:[facility] Start: 10-10-2023 End: 10-10-2023 ambulatory Naina Da Silva [facility] Facility:[facility] Start: 10-10-2023 End: 10-10-2023 ambulatory Naina Da Silva [facility] Facility:[facility] Start: 10-08-2023 End: 10-08-2023 ambulatory Naina Avinash [facility] Facility:[facility] Start: 10-05-2023 End: 10-05-2023 ambulatory Naina Avinash [facility] Facility:[facility] Start: 10-03-2023 End: 10-03-2023 ambulatory Naina Da Silva [facility] Facility:[facility] Start: 09-23-2023 End: 09-24-2023 Emergency department patient visit Naina Da Silva [facility] Facility:[facility] Start: 09-13-2023 End: 09-13-2023 Patient encounter procedure Lincoln Balderas MD Work Phone: [facility] Comment on above: Impacted cerumen of left ear (Primary Dx) Start: 06-03-2023 End: 06-03-2023 Emergency department patient visit [facility] Work Phone: [facility]-Emergency Department Work Phone: Start: 05-29-2023 End: 05-29-2023 ambulatory [place] Not Available Start: 05-08-2023 End: 05-08-2023 Emergency department patient visit [facility] Work Phone: [facility]gency [facility] Work Phone: Start: 05-08-2023 End: 05-08-2023 Patient encounter procedure Louis Schmidt APRN.CNP Work Phone: [facility] Comment on above: Dizziness (Primary D x); Headache, unspecified headache type Start: 04-08-2023 End: 04-14-2023 Evaluation and management of inpatient CAL [facility] Start: 04-07-2023 End: 04-08-2023 Emergency department patient visit [facility] Work Phone: [facility]gency Department Work Phone: Start: 03-20-2023 End: 03-20-2023 Patient encounter procedure [facility] Work Phone: [facility] Work Phone: Start: 02-06-2023 End: 02-06-2023 ambulatory [facility] Work Phone: [facility] Work Phone: Start: 02-06-2023 End: 02-06-2023 Patient encounter procedure [facility] Work Phone: [facility], [facility] Work Phone: Start: 01-30-2023 End: 01-30-2023 ambulatory [facility] Work Phone: [facility] Work Phone: Start: 01-30-2023 End: 01-30-2023 Patient encounter procedure [facility] Work Phone: [facility] Work Phone: Start: 01-29-2023 End: 01-29-2023 ambulatory [facility] Work Phone: [facility] Work Phone: Start: 01-29-2023 End: 01-29-2023 Discharged Recurring [facility] Work Phone: [facility]Physical [facility] Work Phone: Start: 12-20-2022 Non-patient / Non-visit [facility] Work Phone: [facility] Inpatient Physicians Work Phone: Start: 12-19-2022 End: 12-20-2022 Evaluation and management of inpatient [facility]: Start: 12-19-2022 Non-patient / Non-visit [facility] Work Phone: [facility] Inpatient Physicians Work Phone: Start: 12-19-2022 Non-patient / Non-visit [facility] Work Phone: [facility] Start: 12-18-2022 Non-patient / Non-visit [facility] Work Phone: [facility] Inpatient Physicians Work Phone: Start: 12-18-2022 End: 12-20-2022 Evaluation and management of inpatient [facility] Work Phone: [facility] Work Phone: Start: 12-18-2022 observation encounter [facility] Work Phone: [facility] Work Phone: Start: 12-12-2022 End: 12-12-2022 ambulatory [facility] Work Phone: [facility] Work Phone: Start: 12-12-2022 End: 12-12-2022 Patient encounter procedure [facility] Work Phone: [facility] Work Phone: Start: 12-09-2022 End: 12-09-2022 Emergency department patient visit [facility] Work Phone: [facility] Work Phone: Start: 12-04-2022 End: 12-04-2022 Emergency department patient visit VANI CARLSON APRN-[employer] TECHNICAL OFFICER Facility:B Start: 11-22-2022 End: 11-23-2022 Emergency department patient visit [facility] Work Phone: [facility] Work Phone: Start: 11-07-2022 End: 11-07-2022 ambulatory [facility] Work Phone: [facility] Work Phone: Start: 11-07-2022 End: 11-07-2022 Patient encounter procedure [facility] Work Phone: [facility] Work Phone: Start: 10-03-2022 End: 10-03-2022 Patient encounter procedure [facility] Work Phone: [facility], Specimen Work Phone: Start: 10-03-2022 End: 10-03-2022 Patient encounter procedure [facility] Work Phone: [facility] Work Phone: Start: 09-19-2022 End: 09-19-2022 Patient encounter procedure [facility] Work Phone: [facility] Work Phone: Start: 08-29-2022 End: 08-29-2022 Patient encounter procedure [facility] Work Phone: [facility] Work Phone: Start: 08-15-2022 End: 08-15-2022 Emergency department patient visit [facility] Work Phone: [facility] Start: 08-08-2022 Non-patient / Non-visit [facility] Work Phone: [facility] Start: 08-08-2022 End: 08-08-2022 Admission to same day surgery center [facility] Work Phone: [facility] Start: 08-08-2022 End: 08-08-2022 ambulatory [facility] Work Phone: [facility] Work Phone: Start: 06-06-2022 End: 06-06-2022 Patient encounter procedure [facility] Work Phone: [facility] Gastroenterology Start: 03-15-2022 End: 03-15-2022 ambulatory [facility] Work Phone: [facility] Work Phone: Start: 03-15-2022 End: 03-15-2022 Patient encounter procedure [facility] Work Phone: [facility], [facility] Start: 03-07-2022 End: 03-07-2022 ambulatory [facility] Work Phone: [facility] Work Phone: Start: 03-07-2022 End: 03-07-2022 Patient encounter procedure [facility] Work Phone: [facility], [facility] Start: 02-28-2022 End: 02-28-2022 Patient encounter procedure [facility] Work Phone: [facility] Care Start: 02-17-2022 End: 02-17-2022 ambulatory [facility] Work Phone: [facility] Work Phone: Start: 02-17-2022 End: 02-17-2022 Patient encounter procedure [facility] Work Phone: [facility], Specimen Start: 02-15-2022 End: 02-15-2022 Patient encounter procedure [facility] Work Phone: [facility] Gastroenterology Start: 01-31-2022 End: 01-31-2022 ambulatory [facility] Work Phone: Start: 01-31-2022 End: 01-31-2022 Patient encounter procedure [facility] Start: 01-24-2022 End: 01-24-2022 Emergency department patient visit [facility] Work Phone: [facility] Start: 01-15-2022 End: 01-15-2022 Emergency department patient visit [facility] Work Phone: [facility] Start: 12-14-2021 End: 12-14-2021 ambulatory [facility] Work Phone: [facility] Work Phone: Start: 12-14-2021 End: 12-14-2021 Patient encounter procedure [facility] Work Phone: [facility] Start: 12-12-2021 End: 12-12-2021 Patient encounter procedure Lincoln Balderas MD Work Phone: [facility] Comment on above: Dental infection (Pr imary Dx) Start: 11-30-2021 End: 11-30-2021 Patient encounter procedure [facility] Work Phone: [facility] Start: 09-28-2021 End: 09-28-2021 Patient encounter procedure [facility] Work Phone: [facility] Start: 09-27-2021 End: 09-27-2021 Patient encounter procedure [facility] Work Phone: [facility] Start: 09-10-2021 End: 09-10-2021 Emergency department patient visit [facility] Work Phone: [facility] Start: 09-03-2021 End: 09-03-2021 Emergency department patient visit [facility] Work Phone: [facility] Start: 09-03-2021 End: 09-03-2021 Patient encounter procedure Lincoln Balderas MD Work Phone: [facility] Comment on above: Nausea and vomiting, unspecified vomiting type (Primary Dx); Dizziness Start: 08-31-2021 End: 08-31-2021 Patient encounter procedure [facility] Work Phone: [facility] Start: 08-29-2021 End: 08-29-2021 Emergency department patient visit [facility] Work Phone: [facility] Start: 08-24-2021 End: 08-24-2021 Patient encounter procedure [facility] Work Phone: [facility] Start: 08-16-2021 End: 08-16-2021 Emergency department patient visit [facility] Work Phone: [facility] Start: 08-08-2021 End: 08-08-2021 Patient encounter procedure [facility] Work Phone: [facility] Start: 06-27-2021 End: 06-27-2021 Patient encounter procedure [facility] Start: 12-14-2020 End: 12-14-2020 Emergency department patient visit ERNESTO BURK DO [facility] Start: 01-07-2020 End: 01-07-2020 Subsequent hospital visit by physician Xr [facility] Work Phone: Radiology Comment on above: Foot pain, left [[id number] .[id number]] Start: 01-31-2017 End: 01-31-2017 Ambulatory SOMMER LECHUGA [facility] Start: 11-24-2016 Ambulatory Mohan Colon [facility] Start: 09-18-2016 End: 09-19-2016 Ambulatory DELMI NANCE [facility] Procedures Date Procedure Procedure Detail Performing Clinician Start: 09-04-2024 CT of head without contrast Naina lozano [employer] Work Phone: Start: 09-04-2024 Blood count smear mcrscp w/mnl difrntl wbc count Naina Da Silva [employer] Work Phone: Start: 09-04-2024 Estimated creatinine clearance Naina borges [employer] Work Phone: Start: 09-04-2024 [place] measurement Naina Da Silva [employer] Work Phone: Start: 09-04-2024 Mean corpuscular hemoglobin concentration determination Naina BAZAN Work Phone: Start: 09-04-2024 Nucleated red blood cell count procedure Naina BAZAN Work Phone: Start: 09-04-2024 Platelet mean volume determination Jennifer BAZAN Work Phone: Start: 09-02-2024 Blood count smear mcrscp w/mnl difrntl wbc count Naina BAZAN Work Phone: Start: 09-02-2024 Mean corpuscular hemoglobin concentration determination Naina BAZAN Work Phone: Start: 09-02-2024 Nucleated red blood cell count procedure Naina BAZAN Work Phone: Start: 09-02-2024 Platelet mean volume determination Jennifer BAZAN Work Phone: Start: 09-02-2024 Procedure Naina BAZAN Work Phone: Comment on above: Test Ordered: [id number] [employer] Vaginitis (V G)Test(s) 118644- Atopobium vaginae; 017042- BVAB 2;243142- Megasphaera 1was developed and its performance characteristicsdetermined by [employer]. It has not been cleared or approvedby the Food and Drug Administration.Test(s) 031679-Lcgqmpk albicans, DAMARIS; 979713-Ueroens glabrata, NAAwas developed and its performance characteristicsdetermined by [employer]. It has not been cleared or approvedby the Food and Drug Administration. Atopobium vaginae Low - 0 Score =G Reference Range: . BVAB 2 Low - 0 Score =G Reference Range: . Megasphaera 1 Low - 0 Score =G Reference Range: .Calculate total score by adding the 3 individual bacterialvaginosis (BV) marker scores together. Total score isinterpreted as follows:Total score 0-1: Indicates the absence of BV.Total score 2: Indeterminate for BV. Additional clinical data should be evaluated to establish a diagnosis.Total score 3-6: Indicates the presence of BV.Aleena albicans, DAMARIS Negative =G Reference Range: NegativeCandida glabrata, DAMARIS Negative =G Reference Range: NegativeTrich vag by DAMARIS Negative =G Reference Range: NegativePerformed at: =G - [facility] [address] [id number] Director: Idalia Yoo MD, Phone: [phone] at: CB - [facility] [id number] [place], [place] [id number] Director: Neeraj Marte PhD, Phone: [phone] Start: 09-02-2024 Urine microscopy: red cells Nainakourtney lozano [employer] Work Phone: Start: 09-02-2024 Urnls dip stick/tablet reagent auto microscopy Naina Avinash [employer] Work Phone: Start: 09-02-2024 Urine culture Naina Avinash [employer] Work Phone: Start: 08-07-2024 MRI of abdomen with contrast Nainakourtney davis [employer] Work Phone: Start: 06-10-2024 Blood count smear mcrscp w/mnl difrntl wbc count Naina Avinash [employer] Work Phone: Start: 06-10-2024 Mean corpuscular hemoglobin concentration determination Naina Avinash [employer] Work Phone: Start: 06-10-2024 Nucleated red blood cell count procedure Naina Avinash [employer] Work Phone: Start: 06-10-2024 Platelet mean volume determination Jennifer paula Da Silva [employer] Work Phone: Start: 06-03-2024 Blood count smear mcrscp w/mnl difrntl wbc count Naina Avinash [employer] Work Phone: Start: 06-03-2024 Estimated creatinine clearance Nainakourtney borges [employer] Work Phone: Start: 06-03-2024 Mean corpuscular hemoglobin concentration determination Naina Avinash [employer] Work Phone: Start: 06-03-2024 Nucleated red blood cell count procedure Naina Avinash [employer] Work Phone: Start: 06-03-2024 Platelet mean volume determination Jennifer Da Silva [employer] Work Phone: Start: 06-03-2024 CT angiography of chest with contrast Naina Da Silva [employer] Work Phone: Start: 06-03-2024 CT angiography of head and neck Naina Da Silva [employer] Work Phone: Start: 06-03-2024 Ultrasonography of abdomen Naina christy [employer] Work Phone: Start: 05-23-2024 [place] measurement Naina Da Silva [employer] Work Phone: Start: 05-14-2024 Blood count smear mcrscp w/mnl difrntl wbc count Naina Da Silva [employer] Work Phone: Start: 05-14-2024 Estimated creatinine clearance Naian borges [employer] Work Phone: Start: 05-14-2024 Mean corpuscular hemoglobin concentration determination Naina Da Silva [employer] Work Phone: Start: 05-14-2024 Nucleated red blood cell count procedure Naina Da Silva [employer] Work Phone: Start: 05-14-2024 Platelet mean volume determination Jennifer Da Silva [employer] Work Phone: Start: 05-14-2024 Plain chest X-ray Naina Da Silva [employer] Work Phone: Start: 05-08-2024 Computed tomography of abdomen and pelvis with intravenous contrast Naina Da Silva [employer] Work Phone: Start: 05-08-2024 Blood count smear mcrscp w/mnl difrntl wbc count Naina Da Silva [employer] Work Phone: Start: 05-08-2024 Estimated creatinine clearance Naina borges [employer] Work Phone: Start: 05-08-2024 Mean corpuscular hemoglobin concentration determination Naina Da Silva [employer] Work Phone: Start: 05-08-2024 Nucleated red blood cell count procedure Naina Da Silva [employer] Work Phone: Start: 05-08-2024 Platelet mean volume determination Jennifer Da Silva [employer] Work Phone: Start: 05-08-2024 Triacylglycerol lipase measurement Jennifer Da Silva [employer] Work Phone: Start: 05-08-2024 Urine microscopy: red cells Naina lozano [employer] Work Phone: Start: 05-08-2024 Urnls dip stick/tablet reagent auto microscopy Naina Da Silva [employer] Work Phone: Start: 05-07-2024 Blood count smear mcrscp w/mnl difrntl wbc count Naina Da Silva [employer] Work Phone: Start: 05-07-2024 Mean corpuscular hemoglobin concentration determination Naina Da Silva [employer] Work Phone: Start: 05-07-2024 Nucleated red blood cell count procedure Naina Da Silva [employer] Work Phone: Start: 05-07-2024 Platelet mean volume determination Jennifer Da Silva [employer] Work Phone: Start: 02-05-2024 Urine culture Naina Da Silva -C Work Phone: Start: 01-24-2024 STREP A MOLECULAR (POC) Maru HICKEY Work Phone: Start: 06-03-2023 Plain chest X-ray [facility] Work Phone: Start: 05-08-2023 Plain chest X-ray [facility] Work Phone: Start: 05-08-2023 CT of head without contrast [facility] Work Phone: Start: 05-08-2023 SARS-CoV-2, Influenza & RSV (PCR) [facility] Work Phone: Start: 04-07-2023 Coronavirus COVID-19 PCR [facility] Work Phone: Start: 02-06-2023 Ultrasound elastography of liver [facility] Work Phone: Start: 12-18-2022 Plain chest X-ray [facility] Work Phone: Start: 12-18-2022 CT of head without contrast [facility] Work Phone: Start: 12-09-2022 Urine culture [facility] Work Phone: Start: 11-07-2022 MRI of brain without contrast [facility] Work Phone: Start: 09-19-2022 MRI of small intestine [facility] Work Phone: Start: 08-08-2022 Colonoscopy [facility] Work Phone: Start: 03-15-2022 Radionuclide gastric emptying study [facility] Work Phone: Start: 03-07-2022 Pelvic echography [facility] Work Phone: Start: 03-07-2022 Ultrasonography of abdomen [facility] Work Phone: Start: 03-07-2022 Ultrasound elastography [facility] Work Phone: Start: 01-24-2022 Computed tomography of abdomen and pelvis with intravenous contrast [facility] Work Phone: Start: 01-15-2022 Plain chest X-ray [facility] Work Phone: Start: 12-14-2021 MRI of brain with contrast [facility] Work Phone: Start: 11-30-2021 CT of abdomen [facility] Work Phone: Start: 08-16-2021 Radiography of ankle [facility] Work Phone: Start: 08-16-2021 Radiologic examination of knee [facility] Work Phone: Start: 08-16-2021 X-ray of both feet [facility] Work Phone: Start: 01-07-2020 Radex ankle complete minimum 3 views Clay Tinsley APRN.[facility] Work Phone: Cytopathology proced ure, preparation of smear, genital source [facility] Work Phone: Investigation of tra nsfusion reaction [facility] Work Phone: Lactoferrin measurement [facility] Work Phone: Lactoferrin measurement [facility] Work Phone: Ova OR parasites identification Ova OR parasites identification [facility] Work Phone: Spinal arthrodesis ERNESTO CLARK DO Viral antigen assay [facility] Work Phone: Plan of Treatment Date Care Activity Detail Author Start: 07-15-2025 BP Controlled (<130/80) BP Controlled (<130/80) [facility] Start: 10-27-2024 ambulatory Facility:[facility] Start: 10-20-2024 Influenza vaccination [facility] Start: 10-16-2024 End: 10-16-2024 Patient encounter procedure 10/16/2024 10:20 AM EDT Office Visit Endocrinology [address] [place], [place] [phone] Jey Johnson MD [address] [place], [place] [id number] 3 month f/u-PCOS Endocrinology Comment on above: 3 month f/u-PCOS Start: 09-26-2024 End: 09-26-2024 Follow-up encounter Endocrinology Comment on above: Can you please schedule this patient for a follow up virtual visit on September 26 at 1:30. Start: 09-04-2024 [facility] Start: 09-04-2024 [place] measurement [facility] Start: 09-02-2024 Procedure [facility] Start: 09-02-2024 [facility] Start: 09-02-2024 Urine culture [facility] Start: 08-26-2024 End: 08-26-2024 ambulatory 08/26/2024 1:00 PM EDT [facility] Patient Outreach Endocrinology [address] [place] [address] Maria Elena France, Fine Arts Chair [address] [place] [address] Ways to loose weight with other medical issues. Endocrinology Comment on above: Ways to loose weight with other medical issues. Start: 08-01-2024 End: 08-01-2024 Follow-up encounter 08/01/2024 12:15 PM EDT [facility] Endocrinology [address] [place] [address] Laura Carson, PhD [address] [place] [address] follow up virtual visit on August 01 at 12:15. Endocrinology Comment on above: follow up virtual visit on August 01 at 12:15. Start: 07-15-2024 End: 07-15-2024 Patient encounter procedure 07/15/2024 10:40 AM EDT Office Visit Endocrinology [address] [place], [place] [phone] Jey Johnson MD [address] [place], [place] [phone] 3 MTH F/U-PCOS Endocrinology Comment on above: 3 MTH F/U-PCOS Start: 06-27-2024 End: 06-27-2024 Telemedicine consultation with patient 06/27/2024 10:00 AM EDT Telemedicine [facility] [address] [place] [id number] [place], [employer] [address] [place] [address] [facility] Start: 06-04-2024 Hemoglobin A1c measurement HbA1C [facility] Start: 06-03-2024 Us abdominal real time w/image limited [facility] Start: 06-03-2024 End: 06-03-2024 [facility] Start: 05-16-2024 End: 05-16-2024 ambulatory 05/16/2024 8:40 AM EDT [facility] Endocrinology [address] [place] [address] Huey Cortes DO, PhD [address] [place] [address] ENDOCRINE WEIGHT Endocrinology Comment on above: ENDOCRINE WEIGHT Start: 05-15-2024 [facility] Start: 05-14-2024 End: 05-14-2024 [facility] Start: 05-08-2024 [facility] Start: 04-15-2024 End: 04-15-2024 Patient encounter procedure Endocrinology Comment on above: 3 month f/u 3 month f/u PCOS, me ds Start: 04-09-2024 Hepatitis B surface antibody level LDL Cholesterol [facility] Start: 01-31-2024 End: 01-31-2024 ambulatory 01/31/2024 9:00 AM EST [facility] Endocrinology [address] [place], [place] [phone] Carissa Sherwood, RD [address] [phone] PCOS (polycystic ovarian syndrome) [E28.2]; Obesity, Class III, BMI 40-49.9 (morbid obesity) (HCC) [E66.01] Endocrinology Comment on above: PCOS (polycystic ovarian syndrome) [E28. 2]; Obesity, Class III, BMI 40-49.9 (morbid obesity) (HCC) [E66.01] Start: 01-25-2024 End: 04-25-2024 Fasting glucose [Mass/volume] in Serum or Plasma GLUCOSE, FASTING Lab Routine PCOS (polycystic ovarian syndrome) Expected: 01/25/2024, Expires: 04/25/2024 [facility] Comment on above: Expected: 01/25/2024, Expires: Start: 01-08-2024 End: 01-08-2024 Patient encounter procedure 01/08/2024 11:40 AM EST Office Visit Endocrinology [address] [place] [place] [phone] Jey Johnson MD [address] [place] [phone] 2 MTH F/U for irregular cycles, hirsutism . Endocrinology Comment on above: 2 MTH F/U for irregular cycles, hirsutis m . Start: 12-20-2023 End: 12-20-2023 Patient encounter procedure 12/20/2023 10:00 AM EDT Office Visit [facility] [address] [place] [address] [place] [employer] [address] [place] [address] [facility] Start: 11-16-2023 End: 02-15-2024 17-Hydroxyprogesterone [Mass/volume] in Serum or Plasma HYDROXYPROGESTERONE-17 Lab Routine Obesity, Class III, BMI 40-49.9 (morbid obesity) ([facility]) Expected: 11/16/2023, Expires: 02/15/2024 [facility] Work Phone: Comment on above: Expected: 11/16/2023, Expires: Start: 11-16-2023 End: 02-15-2024 BIOAVAIL TESTO/SHBG, FEM & CHILD BIOAVAIL TESTO/SHBG, FEM & CHILD Lab Routine Obesity, Class III, BMI 40-49.9 (morbid obesity) ([facility]) Expected: 11/16/2023, Expires: 02/15/2024 [facility] Comment on above: Expected: 11/16/2023, Expires: Start: 11-16-2023 End: 02-15-2024 Corticotropin [Mass/volume] in Plasma ACTH BLD Lab Routine Obesity, Class III, BMI 40-49.9 (morbid obesity) (HCC) Expected: 11/16/2023, Expires: 02/15/2024 [facility] Comment on above: Expected: 11/16/2023, Expires: Start: 11-16-2023 End: 02-15-2024 Cortisol [Mass/volume] in Serum or Plasma CORTISOL, SERUM Lab Routine Obesity, Class III, BMI 40-49.9 (morbid obesity) (HCC) Expected: 11/16/2023, Expires: 02/15/2024 [facility] Comment on above: Expected: 11/16/2023, Expires: Start: 11-16-2023 End: 02-15-2024 DHEA-S BLD DHEA-S BLD Lab Routine Obesity, Class III, BMI 40-49.9 (morbid obesity) (HCC) Expected: 11/16/2023, Expires: 02/15/2024 [facility] Comment on above: Expected: 11/16/2023, Expires: Start: 11-16-2023 End: 02-15-2024 Estradiol (E2) [Mass/volume] in Serum or Plasma ESTRADIOL-17B BLD Lab Routine Obesity, Class III, BMI 40-49.9 (morbid obesity) ([facility]) Expected: 11/16/2023, Expires: 02/15/2024 [facility] Comment on above: Expected: 11/16/2023, Expires: Start: 11-16-2023 End: 02-15-2024 Follitropin [Units/volume] in Serum or Plasma FOLLICLE STIMULATING HORMONE Lab Routine Obesity, Class III, BMI 40-49.9 (morbid obesity) (HCC) Expected: 11/16/2023, Expires: 02/15/2024 [facility] Comment on above: Expected: 11/16/2023, Expires: Start: 11-16-2023 End: 02-15-2024 Hemoglobin A1c in Blood HEMOGLOBIN A1C Lab Routine PCOS (polycystic ovarian syndrome) Expected: 11/16/2023, Expires: 02/15/2024 [facility] Comment on above: Expected: 11/16/2023, Expires: Start: 11-16-2023 End: 02-15-2024 Insulin [Units/volume] in Serum or Plasma INSULIN ASSAY BLOOD Lab Routine PCOS (polycystic ovarian syndrome) Expected: 11/16/2023, Expires: 02/15/2024 [facility] Comment on above: Expected: 11/16/2023, Expires: Start: 11-16-2023 End: 02-15-2024 Lutropin [Units/volume] in Serum or Plasma LUTEINIZING HORMONE Lab Routine Obesity, Class III, BMI 40-49.9 (morbid obesity) (HCC) Expected: 11/16/2023, Expires: 02/15/2024 [facility] Comment on above: Expected: 11/16/2023, Expires: Start: 11-16-2023 End: 02-15-2024 Prolactin [Mass/volume] in Serum or Plasma PROLACTIN Lab Routine Obesity, Class III, BMI 40-49.9 (morbid obesity) ([facility]) Expected: 11/16/2023, Expires: 02/15/2024 [facility] Comment on above: Expected: 11/16/2023, Expires: Start: 11-16-2023 End: 02-15-2024 Thyrotropin [Units/volume] in Serum or Plasma THYROID STIMULATING HORMONE Lab Routine Obesity, Class III, BMI 40-49.9 (morbid obesity) (HCC) Expected: 11/16/2023, Expires: 02/15/2024 [facility] Comment on above: Expected: 11/16/2023, Expires: Start: 11-16-2023 End: 02-15-2024 Thyroxine (T4) free [Mass/volume] in Serum or Plasma T4 FREE/FREE THYROXINE Lab Routine Obesity, Class III, BMI 40-49.9 (morbid obesity) ([facility]) Expected: 11/16/2023, Expires: 02/15/2024 [facility] Comment on above: Expected: 11/16/2023, Expires: Start: 10-21-2023 Covid-19 Vaccine ( season) Covid-19 Vaccine ( season) [facility] Start: 10-21-2023 Covid-19 Vaccine ( season) Covid-19 Vaccine ( season) [facility] Start: 10-21-2023 Influenza vaccination Influenza Vaccine (#1) [facility] Start: 06-03-2023 [facility] Start: 05-08-2023 [facility] Start: 04-08-2023 [facility] Start: 04-07-2023 Referral to service [facility] Start: 04-07-2023 End: 04-07-2023 Suicide precautions [facility] Start: 02-19-2023 Depression Assessment Depression Assessment [facility] Start: 02-06-2023 Liver elastography w/o imag w/i&r LIVER ELASTOGRAPHY [facility] Start: 12-22-2022 Blood chemistry [facility] Start: 12-21-2022 Blood chemistry [facility] Start: 12-20-2022 Patient discharge [facility] Start: 12-19-2022 Admission procedure [facility] Start: 12-19-2022 [facility] Start: 12-18-2022 Assessment of risk of venous thromboembolism [facility] Start: 12-18-2022 Catheterization of vein [facility] Start: 12-18-2022 Insertion of catheter into peripheral vein [facility] Start: 12-18-2022 Measuring intake and output [facility] Start: 12-18-2022 Providing care according to standard [facility] Start: 12-18-2022 Provision of activity privileges [facility] Start: 12-18-2022 Referral to occupational therapist [facility] Start: 12-18-2022 Referral to service [facility] Start: 12-18-2022 [facility] Start: 12-18-2022 Following clinical pathway protocol [facility] Start: 12-18-2022 Verification routine [facility] Start: 12-18-2022 Admission procedure [facility] Start: 12-18-2022 Hospital admission, emergency, from emergency room, medical nature [facility] Start: 12-18-2022 [facility] Start: 12-18-2022 Consultation [facility] Start: 12-09-2022 End: 12-09-2022 [facility] Start: 10-20-2022 Covid-19 Vaccine ( season) Covid-19 Vaccine ( season) [facility] Start: 10-20-2022 Influenza vaccination Influenza Vaccine (#1) [facility] Start: 09-19-2022 Following clinical pathway protocol [facility] Start: 08-08-2022 Colonoscopy w/biopsy single/multiple COLONOSCOPY AND BIOPSY [facility] Start: 08-08-2022 Egd transoral biopsy single/multiple EGD BIOPSY SINGLE/MULTIPLE [facility] Start: 08-08-2022 Patient discharge [facility] Start: 02-17-2022 Elastase, pancreatic (el-1), fecal; quantitative [facility] Work Phone: Start: 02-17-2022 Protein measurement [facility] Work Phone: Start: 01-24-2022 Enteric precautions [facility] Start: 10-20-2021 Influenza vaccination INFLUENZA (#1) [facility] Start: 09-11-2021 Urine microalbumin profile DTaP,Tdap,Td Vaccine (8 - Td or Tdap) [facility] Start: 09-10-2021 Referral to service [facility] Work Phone: Start: 09-10-2021 Suicide precautions [facility] Work Phone: Start: 08-16-2021 Radiography of ankle Ankle min 3 Views [facility] Work Phone: Start: 08-16-2021 Radiologic examination of knee Knee 1 or 2 Views [facility] Work Phone: Start: 08-16-2021 X-ray of both feet Foot min 3 Views [facility] Work Phone: Start: 08-16-2021 XR Ankle GE 3 Views [facility] Work Phone: Start: 08-16-2021 XR Foot GE 3 Views [facility] Work Phone: Start: 08-16-2021 XR Knee 1 or 2 Views [facility] Work Phone: Start: 04-21-2021 COVID-19 VACCINE (3 - Booster for Pfizer series) COVID-19 VACCINE (3 - Booster for Pfizer series) [facility] Start: 02-19-2021 DEPRESSION ASSESSMENT DEPRESSION ASSESSMENT [facility] Start: 01-16-2021 COVID-19 VACCINE (3 - Booster for Pfizer series) COVID-19 VACCINE (3 - Booster for Pfizer series) [facility] Start: 2017 PAP TESTING PAP TESTING [facility] Start: 2017 Screening for malignant neoplasm of cervix [facility] Start: 08-21-2017 Glaucoma screening Dilated Retinal Exam [facility] Start: 10-25-2015 Pneumococcal vaccination Pneumococcal Vaccine (1 of 2 - PCV) [facility] Start: 10-25-2015 Urine microalbumin profile DTAP,TDAP,TD (1 - Tdap) [facility] Start: 2014 Annual PCP Team Chronic Disease Visit Annual PCP Team Chronic Disease Visit [facility] Start: 2014 Anxiety Screening Anxiety Screening [facility] Start: 2014 BP Controlled (<130/80) BP Controlled (<130/80) [facility] Start: 2014 Depression Screening Depression Screening [facility] Start: 2014 HEPATITIS C SCREENING HEPATITIS C SCREENING [facility] Start: 2014 Hepatitis C screening Hepatitis C Screening [facility] Start: 2014 HIV SCREENING HIV SCREENING [facility] Start: 2014 HIV screening HIV Screening [facility] Start: 2010 PEDS TO ADULT TRANSITION ANNUAL ASSESSMENT PEDS TO ADULT TRANSITION ANNUAL ASSESSMENT [facility] Start: 2008 Adult depression screening assessment DEPRESSION SCREENING [facility] Start: 2008 PEDS TO ADULT TRANSITION INITIAL DISCUSSION PEDS TO ADULT TRANSITION INITIAL DISCUSSION [facility] Start: 10-25-2007 HPV VACCINE (1 - 2-dose series) HPV VACCINE (1 - 2-dose series) [facility] Start: 2006 Diabetic foot examination Diabetic Foot Exam [facility] Start: 2006 Hepatitis B screening Urine Albumin:Creatinine Ratio [facility] Start: 2006 MENINGOCOCCAL B: Consider based on risk (1 of 2 - Risk Bexsero 2-dose series) MENINGOCOCCAL B: Consider based on risk (1 of 2 - Risk Bexsero 2-dose series) [facility] Start: 1996 HEPATITIS B (1 of 3 - 3-dose series) HEPATITIS B (1 of 3 - 3-dose series) [facility] Cardiac event recording [facility] Clostridioides diffi cile DNA [Presence] in Unspecified specimen by DAMARIS with probe detection [facility] Work Phone: COVID & INFLUENZA A/ B & RSV PCR, ROUTINE COVID & INFLUENZA A/B & RSV PCR, ROUTINE Microbiology Routine Sore throat URI, acute 01/24/2024 2:45 PM EST [facility] Work Phone: COVID & INFLUENZA A/ B & RSV PCR, ROUTINE COVID & INFLUENZA A/B & RSV PCR, ROUTINE Microbiology Routine Influenza-like illness Ordered: 04/14/2024 [facility] Work Phone: Comment on above: Ordered: 04/14/2024 Gastrointestinal pathogens panel - Stool by DAMARIS with probe detection [facility] Work Phone: Hemoglobin A1c/Hemoglobin.total in Blood [facility] Lactoferrin [Presenc e] in Stool by Immunoassay [facility] Work Phone: Liver stiffness by US.transient elastography [facility] MR Abdomen WO and W contrast IV [facility] Ova and Parasites Ova and Parasites [facility] Work Phone: Ova and parasites identified in Unspecified specimen by Light microscopy [facility] Work Phone: Patient Education [facility] Work Phone: Patient referral [facility] Work Phone: Protein measurement [facility] Work Phone: Radionuclide gastric emptying study [facility] Work Phone: Removal impacted cer umen irrigation/lvg unilat AMBULATORY EAR LAVAGE/IRRIGATION Procedures Routine Impacted cerumen of left ear Ordered: 09/13/2023 [facility] Work Phone: Comment on above: Ordered: 09/13/2023 Troponin T.cardiac [Mass/volume] in Serum or Plasma by High sensitivity method [facility] Ultrasound elastography [facility] Work Phone: US Abdomen limited [facility] Work Phone: Immunizations Immunization Date Immunization Notes Care Provider Martha urena 10-31-2020 influenza virus vacc ine, unspecified formulation Louis Schmidt APRN.CNP Work Phone: [facility] Payers Date Payer Category Payer Self-pay [id number] 2020 Medicaid [employer] [id number] 2020-Present [phone] [address] [place] [address] Medicaid [id number] 2020 Medicaid [id number]. [id number] 2019 Private Health Insurance 2019 Medicaid [id number] 2016 Private Health Insurance [id number] 1996 Unknown [id number] 2.840.1.086320.3.579.2. 627 1996 Unknown [id number] 2.840.1.259057.3.579.2. 903 1996 Unknown [id number] 2.0.1.746353.3.579.2. 1259 1996 Unknown [id number] .840.1.844997.3.579.2. 1259 Unknown [id number] Unknown [id number] 840.1.582329.3.579.2. 462 Unknown [id number] .1.316090.3.579.2. 462 Unknown [id number] 840.1.091950.3.579.2. 462 Unknown [id number] 840.1.084006.3.579.2. 462 Unknown [id number] 2.840.1.252382.3.579.2. 462 Unknown [id number] 2.840.1.239439.3.579.2. 462 Unknown [id number] 2.840.1.876682.3.579.2. 462 Unknown [id number] 2.16.840.1.839370.3.579.2. 462 Unknown [id number] 2.16.840.1.039716.3.579.2. 462 Unknown [id number] 2.16.840.1.697491.3.579.2. 462 Unknown [id number] 2.16840.1.243193.3.579.2. 462 Unknown [id number] 2.840.1.419170.3.579.2. 462 Unknown [id number] 2.840.1.824034.3.579.2. 462 Unknown [id number] 2.840.1.567386.3.579.2. 462 Unknown [id number] 2.840.1.802758.3.579.2. 462 Unknown [id number] 2.840.1.696400.3.579.2. 462 Unknown [id number] 2.840.1.485303.3.579.2. 462 Unknown [id number] 2.840.1.704863.3.579.2. 462 Unknown [id number] 2.840.1.496317.3.579.2. 462 Unknown [id number] 2.840.1.021843.3.579.2. 462 Unknown [id number] 2.840.1.113805.3.579.2. 462 Unknown [id number] 2.840.1.117020.3.579.2. 462 Unknown [id number] 2.840.1.375911.3.579.2. 462 Unknown [id number] 2.840.1.182077.3.579.2. 462 Unknown [id number] 2.840.1.467078.3.579.2. 462 Unknown [id number] 2.840.1.698333.3.579.2. 462 Unknown [id number] 2.16.840.1.377191.3.579.2. 462 Unknown [id number] 2.16.840.1.298429.3.579.2. 462 Unknown [id number] 2.16.840.1.481442.3.579.2. 462 Unknown [id number] 2.16.840.1.999996.3.579.2. 462 Unknown [id number] 2.16.840.1.579102.3.579.2. 462 Unknown [id number] 2.16.840.1.878670.3.579.2. 462 Unknown [id number] 2.16.840.1.600836.3.579.2. 462 Unknown [id number] 2.16.840.1.150157.3.579.2. 462 Unknown [id number] 2.16.840.1.763119.3.579.2. 462 Unknown [id number] 2.16.840.1.198869.3.579.2. 462 Unknown [id number] 2.16.840.1.559017.3.579.2. 462 Social History Date Type Detail Facility Start: 08-21-2016 End: 01-08-2024 Never smoked tobacco (finding) [facility] Sex Assigned At [facility] Start: 02-03-2021 End: 01-30-2023 Tobacco smoking status NHIS Unknown if ever smoked [facility] Start: 05-27-2020 With [facility] Start: 09-22-2020 Non-smoker [facility] Start: 1996 Sex Assigned At Female [facility] Start: 08-21-2016 End: 01-08-2024 Tobacco use and exposure Smokeless tobacco non-user [facility] Start: 10-13-2020 End: 07-15-2024 Alcohol intake Current non-drinker of alcohol (finding) [facility] Start: 1996 Sex Assigned At Not on file [facility] Start: 12-08-2019 End: 09-03-2021 Exposure to SARS-CoV-2 (event) Not sure [facility] Start: 12-12-2021 End: 10-26-2023 History of Social function [facility] Start: 12-12-2021 End: 10-26-2023 Tobacco use panel [facility] National Score (1-100), lower number is lower risk Not on file [facility] Start: 07-30-2022 End: 12-31-2023 Alcoholic beverage intake Current drinker of alcohol (finding) [facility] Start: 07-30-2022 Alcohol Comment Alcohol: 1-2 drinks/monthly or less. caffeine: 3-4 cups/day [facility] Start: 05-02-2024 End: 06-05-2024 Sex Female (finding) [facility] Start: 05-30-2024 Gender identity Identifies as female gender (finding) [facility] Start: 05-30-2024 Sexual orientation Heterosexual (fin ding) [facility] NEGATED: Highlighted row [facility] NEGATED: Highlighted rowStart: NINF History of tobacco use Passive smoker [facility] Medical Equipment Procedure Code Equipment Code Equipment Origin al Text Equipment Identifier Dates Start: 08-15-2023 End: 07-15-2024 Goals Date Patient Goal Desired Activity /State Functional Status Date Assessment Result Facility 12-20-2022 Functional status [facility] Work Phone: 09-19-2022 Functional status [facility] Work Phone: Mental Status Date Assessment Result Facility 09-04-2024 Cognitive function Awake;Alert;A ppropriate;Follow s Commands [facility] Work Phone: 06-03-2024 Cognitive function Voice/Name [facility] Work Phone: 05-14-2024 Cognitive function Awake;Alert;A ppropriate;Follow s Commands [facility] Work Phone: 05-08-2023 Cognitive function Level Of Cons ciousness Awake;Alert;Appropriate [facility] Work Phone: 12-20-2022 Cognitive function Voice/Name [facility] Work Phone: 12-18-2022 Cognitive function Level Of Cons ciousness Awake;Alert;Follows Commands [facility] Work Phone: 11-22-2022 Cognitive function Level Of Cons ciousness Awake;Alert;Appropriate;Follow s Commands [facility] Work Phone: 09-19-2022 Cognitive function Voice/Name [facility] Work Phone: 08-08-2022 Cognitive function Touch/Shaking [facility] Work Phone: 08-08-2022 Cognitive function Patient Orien tation Person;Place;Time [facility] Work Phone: 01-15-2022 Cognitive function Level Of Cons ciousness Awake;Alert;Appropriate;Follow s Commands [facility] Work Phone: 08-29-2021 Cognitive function Level Of Cons ciousness Awake;Alert;Appropriate;Follow s Commands [facility] Work Phone: Clinical Notes 01-07-2020 to 09-04-2024 Telephone Encounter - Arsenio Solorio LSW - 08/28/2024 3:49 PM EDTTelephone Encounter - Arsenio Solorio LSW - 08/28/2024 3:49 PM Maria Elena Valentin, Fine Arts Chair - 08/26/2024 12:55 PM EDT Note Date & Type Note Facility 09-04-2024 Radiology Diagnostic study note [facility] 08-28-2024 Telephone encounter Note Endocrinology & Metabolism Social Work Progress Note Provider Action / FYI N/A Marion Gutierrez [id number] Type of Contact: telephone Endocrine PIANO REGULATOR INSPECTOR Referral Reason: [id number] Noel Qualification Contact 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 Note/Intervention: n/a [facility] referral placed: n/a Signature: KANU Pathak Patient Name: Marion Gutierrez Date: 08/28/2024 Time: 3:50 PM Pager/Contact #: [phone] During this patient contact I spent approximately 5 minutes in reviewing the patient's chart and counseling regarding community resources and coordinating care. 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 Note/Intervention: n/a [facility] referral placed: n/a Signature: Hannah KANU Solorio Patient Name: Marion Gutierrez Date: 08/28/2024 Time: 3:50 PM Pager/Contact #: [phone] During this patient contact I spent approximately 5 minutes in reviewing the patient's chart and counseling regarding community resources and coordinating care. documented in this encounter [facility] 08-26-2024 History of Present illness [...] an exercise prescription. documented in this encounter [facility] 08-26-2024 Note HNO ID: [id number] Author: HUSSEIN, MARIA ELENA, Fine Arts Chair Service: ? Author Type: Fine Arts Chair Type: Progress Notes Filed: 08/26/2024 13:13 Note [...] test prior to receiving an exercise prescription. [facility] 08-01-2024 Note HNO ID: [id number] Author: LAURA CARSON, PhD Service: ? Author Type: Psychologist Type: Progress Notes Filed: 08/01/2024 14:55 Note Text: [facility] DEPARTMENT OF ENDOCRINOLOGY Progress Note August 01, 2024 [facility]: [facility] BILLING CODE:Leonid CPT Code:4079718 Virtual PSYTX PT AND/FAMILY 45 MINS Time initiated session: 12:20 PM to 1:30 PM Date of First Session: 06/02/24 (initial evaluation) Session #: 2 Collateral Parties Present: parent. Virtual Visit yes I have communicated my name and active licensure. If seen remotely, The patient's identity and physical location were verified at the time of this visit. Either the patient or their legal business banking representative has been informed of the risks and [...] yes The day before yesterday: 8:30 Leftover Panamanian food, chips, salsa guac 11:30 Taco salad [...] at 1:30 pm Laura Carson, PhD Psychologist [facility] 08-01-2024 History of Present illness Narrative Images from the original note were not included. [facility] DEPARTMENT OF ENDOCRINOLOGY Progress Note August 01, 2024 [facility] CENTER: [facility] BILLING CODE:Leonid CPT Code:8034411 Virtual PSYTX PT &/FAMILY 45 MINS Time initiated session: 12:20 PM to 1:30 PM Date of First Session: 06/02/24 (initial evaluation) Session #: 2 Collateral Parties Present: parent. Virtual Visit yes I have communicated my name and active licensure. If seen remotely, The patient's identity and physical location were verified at the time of this visit. Either the patient or their legal business banking representative has been informed of the risks and [...] yes The day before yesterday: 8:30 Leftover Panamanian food, chips, salsa guac 11:30 Taco salad [...] Carson, PhD Psychologist documented in this encounter [facility] 07-15-2024 Instructions Jey Johnson MD - 07/15/2024 10:59 AM EDT Please continue same regimen for the control pills documented in this encounter [facility] 07-15-2024 Note HNO ID: [id number] Author: JEY JOHNSON MD Service: ? Author Type: Physician Type: Progress Notes Filed: 07/16/2024 23:20 Note Text: Endocrinology and Metabolism [place] Follow up note Chief complaint: Evaluation of ovarian hyperandrogenism HPI Marino Gutierrez is a 28 year old female [...] Allergies Cough Janell (more content not 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 [facility] 07-15-2024 History of Present illness Narrative Endocrinology and Metabolism [place] Follow up note Chief complaint: Evaluation of [...] 07-23-2023 CORTISOL,F/24hr 46 ug/24 hr High 6-42 [facility] CORTISOL,U FREE 16 ug/L Normal Undefined [facility] Metanephrine Frac 24 HR UR on 07-23-2023 Metaneph,UR 24H 68 ug/24 hr Normal 36-209 [facility] Metanephrines,U 24 ug/L Normal Undefined [facility] Normetan,UR 24h 522 ug/24 hr High 95-449 [facility] Normetanephrine 183 ug/L Normal Undefined [facility] Catecholamines, 24 UR on 07-20-2023 Dopamine, Urine 580 ug/L Normal Undefined [facility] Dopamine,U,24HR 957 ug/24 hr High 0-510 [facility] Epineph.,U,24HR 5 ug/24 hr Normal 0-20 [facility] Epinephrine, U 3 ug/L Normal Undefined [facility] Norepin.,U,24HR 134 ug/24 hr Normal 0-135 [facility] Comment on above: Order Comment: Test(s) [id number]-Dyrfhsayjhl, Urine; [id number]-Smhhmtgtvslmzl, Ur; [id number]-Fsdkimfb, Urinewas developed and its performance characteristicsdetermined by [employer]. It has not been cleared or approvedby the Food and Drug Administration. Performed By: #### L3600.0150 ####[facility] [id number] [place], [address] Norepinephrin,U 81 ug/L Normal Undefined [facility] Adrenocorticotropic Hormone on 07-17-2023 ACTH 9.7 pg/mL Normal 7.2-63.3 [facility] CORTISOL SERUM on 07-17-2023 CORTISOL 20.10 ug/dL Normal 3.44-22.45 [facility] Catecholamines, Plasma on 07-17-2023 DOPAMINE <30 Normal 0-48 [facility] EPINEPHRINE <15 Normal 0-62 [facility] NOREPINEPHRINE 429 pg/mL Normal 0-874 [facility] Gastrin, Serum on 07-17-2023 GASTRIN 265 pg/mL High 0-115 [facility] Insulin Level on 07-17-2023 INSULIN,FASTING 93.7 uIU/mL High 2.6-24.9 [facility] Insulin Like Growth Factor on 07-17-2023 SOMATOMEDIN C 122 ng/mL Normal 91-308 [facility] Chromogranin A 206.0 ng/mL Abnormal 0.0-101.8 [facility] Renin/Aldosterone Activity on 07-17-2023 ALD/RENIN RATIO 11.6 Normal 0.0-30.0 [facility] Performed By: #### L3400.1350, L3300.3500, L3300.1800, L3430.0100, L3300.1000, L3300.1050, L3100.4810 ####[facility] [id number] [place], [place], [id number] ALDOSTERONE,S 45.0 ng/dL High 0.0-30.0 [facility] RENIN, PLASMA 3.873 ng/mL/hr Normal 0.167-5.380 [facility] BUN/CRE 18.1 RATIO Normal 10-20 [facility] CA,Total 9.0 mg/dL Normal 8.5-10.1 [facility] Chloride [Moles/Vol] 110 mmol/L High 98-107 [facility] CO2 [Moles/Vol] 25.0 mmol/L Normal 21.0-32.0 [facility] Creatinine [Mass/Vol] 0.66 mg/dL Normal 0.55-1.02 [facility] Performed By: #### L100.0100, L500.4050, L506.1000, L501.08921, L501.9520, L506.0400, L501.9060 ####[facility] [id number] [place], [place], [id number] EST GFR - AA 138 mL/min Normal >60 [facility] Performed By: #### L100.0100, L500.4050, L506.1000, L501.02567, L501.9520, L506.0400, L501.9060 ####[facility] [id number] [place], [place], [id number] GAP 3 Low 5-15 [facility] GFR/1.73 sq M.predicted among non-blacks MDRD (S/P/Bld) [Vol rate/Area] 114 mL/min/(1.73_m2) Normal >60 [facility] Globulin (S) [Mass/Vol] 3.8 g/dL Normal 2.2-4.2 [facility] Glucose [Mass/Vol] 124 mg/dL High 74-106 [facility] Performed By: #### L100.0100, L500.4050, L506.1000, L501.93896, L501.9520, L506.0400, L501.9060 ####[facility] [id number] [place], [address] Potassium [Moles/Vol] 4.0 mmol/L Normal 3.5-5.1 [facility] Sodium [Moles/Vol] 138 mmol/L Normal 136-145 [facility] T PROT 7.0 g/dL Normal 6.4-8.2 [facility] Urea nitrogen [Mass/Vol] 12 mg/dL Normal 7-18 [facility] Free T3 on 07-05-2023 Free T3 [Mass/Vol] 2.4 pg/mL Normal 2.18-3.98 [facility] Comment on above: Performed By: #### L100.0100, L500.4050, L506.1000, L501.91386, L501.9520, L506.0400, L501.9060 ####[facility] [id number] [place], [address] [place] on 07-05-2023 LI 0.80 mmol/L Normal 0.60-1.20 [facility] T4 Free Direct on 07-05-2023 T4 FREE DIRECT 1.04 ng/dL Normal 0.76-1.46 [facility] Comment on above: Performed By: #### L100.0100, L500.4050, L506.1000, L501.18002, L501.9520, L506.0400, L501.9060 ####[facility] [id number] [place], [address] Thyroid Stim Hormone (TSH) on 07-05-2023 TSH 2.10 uIU/mL Normal 0.358-3.74 [facility] Vitamin D,25 Hydroxy on 07-05-2023 Vitamin D 25-OH 30.3 ng/mL Normal [facility] Latest Ref Rng 12/05/2023 Sex Hormone [...] Moderate Jey Johnson MD Endocrinology Associate Staff [facility] Endocrinology and Metabolism [place] [phone] documented in this encounter [facility] 06-26-2024 Telephone encounter Note Images from the original note were not included. Patient confirms taking [place]-Linyah and not Sprintec (also on med list). Pended for review. Most recent Endocrinology visit: Last encounter Visit on 05/16/2024 (with Peris Kibera) 10/26/2023 in [facility] with BENDARAM, JEY LAGUNA for PCOS (polycystic ovarian syndrome) 01/08/2024 in ENDO [facility] with BENDARAM, JEY LAGUNA for PCOS (polycystic ovarian syndrome) 04/15/2024 in [facility] with BENDARAM, JEY LAGUNA for Obesity, Class III, BMI 40-49.9 (morbid obesity) 05/16/2024 in ENDO [facility] with KIBERA, PERIS for Obesity, Class III, BMI 40-49.9 (morbid obesity) Upcoming Endocrinology Appointments - Next 365 Days Visit Type Date Time Department EST HAM PATIENT 07/15/2024 10:40 AM ENDO [facility] VIDEO SPEC EST 08/01/2024 12:15 PM ENDO PSYL DIABETES CTR MAIN VIDEO GROUP EP EDU NON IRASEMA 08/26/2024 1:00 PM ENDO [facility] Requested Prescriptions Pending Prescriptions Disp Refills MONO-LINYAH 0.25-0.035 mg tablet [Pharmacy Med Name: [place]-Linyah 0.25-35MG-MCG TABS] 28 tablet 2 Sig: TAKE [...] Prolactin Prolactin 4.4 - 33.8 ng/mL 15.2 [facility] 06-26-2024 Miscellaneous Notes Images from the original note were not included. Patient confirms taking [place]-Linyah and not Sprintec (also on med list). Pended for review. Most recent Endocrinology visit: Last encounter Visit on 05/16/2024 (with Peris Sebastian) 10/26/2023 [facility] with JEY JOHNSON for PCOS (polycystic ovarian syndrome) 01/08/2024 in [facility] with JEY JOHNSON for PCOS (polycystic ovarian syndrome) 04/[facility] with MOOKIE JOHNSONA LAGUNA for Obesity, Class III, BMI 40-49.9 (morbid obesity) 05/16/2024 in [facility]O [facility] with SEBASTIAN PERIS for Obesity, Class III, BMI 40-49.9 (morbid obesity) Upcoming Endocrinology Appointments - Next 365 Days Visit Type Date Time Department EST HAM PATIENT 07/15/2024 10:40 AM [facility] VIDEO SPEC EST 08/01/2024 12:15 PM ENDO PSYL DIABETES CTR MAIN VIDEO GROUP EP EDU NON IRASEMA 08/26/2024 1:00 PM ENDO [facility] Requested Prescriptions Pending Prescriptions Disp Refills MONO-LINYAH 0.25-0.035 mg tablet [Pharmacy Med Name: [place]-Linyah 0.25-35MG-MCG TABS] 28 tablet 2 Sig: TAKE [...] 33.8 ng/mL 15.2 documented in this encounter [facility] 06-03-2024 Discharge summary [facility] 06-03-2024 Radiology Diagnostic study note [facility] Imaging Services [address], [place] [address] CTA Head AND Neck W/ Contrast MR#: [id number] Acct: [id number] Name: MARION GUTIERREZ Rep #: [id number] : 1995 F 28 From: Theresa Forrester MD PCP: Karuna Lim [employer]-C Status: REG ER Study:CTA Head AND Neck W/ Contrast Date of E xam: 06/03/24 Exam# [id number] Ordering Dr: Jorgito Galicia MD PROCEDURE: CT [...] of the [place]. Suspect origin ofthe LEFT REFLEXOLOGIST with questionable diminutive posterior communicating artery, poorly [...] 3. Additional description as above. Reading Location: [id number] CC: Dr. Jaylon Galicia MD; Karuna Kimi PACK-C Carina ~ Truck Rental Service Attendant: Signed [facility] 06-03-2024 Radiology Diagnostic study note [facility] Imaging Services [address] [place] [address] CTA Chest W/WO Contrast MR#: [id number] Acct: [id number] Name: MARION GUTIERREZ Rep #: [id number] : 1995 F 28 From: Theresa Forrester MD PCP: Karuna LimC Status: REG ER Study:CTA Chest W/WO Contrast Date of Exam: 06/03/24 Exam# [id number] Ordering Dr: Jorgito Galicia MD PROCEDURE: CTA [...] 3. Additional description as above. Reading Location: [id number] CC: Dr. Jaylon Galicia MD; Paytonadalgisa [facility] SIRENA-Kimi Lim ~ Truck Rental Service Attendant: Signed [facility] 06-03-2024 Radiology Diagnostic study note [facility] Imaging Services [address] [place] [id number] Abdomen Limited MR#: [id number] Acct: [id number] Name: MARION GUTIERREZ Rep #: [id number] : 1995 F 28 From: Colby Espitia MD PCP: Karuna Lim [facility] RIVET HEATER GASIsrealC Status: REG CLI Study:Abdomen Limited Date of Exam: 05/20 07/13 Exam# [id number] Ordering Dr: Juventino Lim [facility] [employer]-C PROCEDURE: ABDOMEN LIMITED 06/03/2024 REASON FOR EXAM: [...] infiltration of the liver. Hepatomegaly. Reading Location: [place] [address] CC: [facility] [employer]-C Beam ~ Truck Rental Service Attendant: Signed [facility] 06-02-2024 Note HNO ID: [id number] Author: LAURA CARSON, PhD Service: ? Author Type: Psychologist Type: Progress Notes Filed: 06/02/2024 16:36 Note Text: [facility] EVALUATION DATE OF SERVICE: June 02, 2024 TIME OF SERVICE: 2:30 pm COST CENTER: 3BO CPT CODE: 66704 Brief Emotional/Behavioral Assessment with scoring/documentation [id number] Virtual PSYCH DIAGNOSTIC EVAL BILLING CODE: Leonid SESSION #: 1 The patient signed the Informed Consent for Psychological Evaluation AND Care Form, and the [facility] health care insurance benefits, fees for service, [...] visit. Either the patient or their legal business banking representative has been informed of the risks and benefits of -- and alternatives to -- treatment through a remote evaluation and consents to proceed with the evaluation remotely. IDENTIFYING INFORMATION Ms. Marion Gutierrez is a 28 year old female. She was referred by Dr. Cortes. eduardo Osborne's mom was also in meeting. Mom is not currently medical power of traffic law attorney but they have discussed this. Pt [...] Inject 441 mg intramuscularly every 4 weeks. APJeT VERIO TEST STRIPS test strip 1 Each four times daily. AJOVY SYRINGE 225 mg/1.5 mL syringe INJECT 1.5ML (1 SYRINGE) SUBCUTANEOUSLY EVERY MONTH imipramine HCl (TOFRANIL) 25 mg tablet Take 25 mg by mouth daily at bedtime. lactulose 10 gram/15 mL solution TAKE 45 ML BY MOUTH TWICE DAILY NEEDED FOR CONSTIPATION. AdiosoTOUCH DELICA PLUS LANCET 33 gauge 1 Each [...] Extracts Hives, Intolera (more content not 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 [facility] 06-02-2024 History of Present illness Narrative Images from the original note were not included. [facility]CR[facility] EVALUATION DATE OF SERVICE: June 02, 2024 TIME OF SERVICE: 2:30 pm COST CENTER: 3BO CPT CODE: 61775 Brief Emotional/Behavioral Assessment with scoring/documentation [id number] Virtual PSYCH DIAGNOSTIC EVAL BILLING CODE: Leonid SESSION #: 1 The patient signed the Informed Consent for Psychological Evaluation & Care Form, and the [facility] health care insurance benefits, fees for service, [...] visit. Either the patient or their legal business banking representative has been informed of the risks and benefits of -- and alternatives to -- treatment through a remote evaluation and consents to proceed with the evaluation remotely. IDENTIFYING INFORMATION Ms. Marion Gutierrez is a 28 year old female. She was referred by Dr. Cortes. [place] pt's mom was also in meeting. Mom is not currently medical power of traffic law attorney but they have discussed this. Pt [...] include family life. - Working with a near eastern archaeology lecturer on a Mediterranean diet. - Denies interest [...] AM. 1/2 sandwich of two pieces of [place] toast, a sausage bautista, fried egg. Glass [...] day. 2 cans of pop per day [place] or chocolate milk 8 oz 2-3 times [...] (20-27) severe depression Mike Jacome therapist - [facility] pt sees weekly to every two weeks (18 months) Psychiatrist [facility] at same center [facility] - sees [...] with adult life skills. Pt has case management assistant. Pt takes medication on her own, except for Abilify injection about once per month. 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 Stopped due to medical conditions The patient has completed 12 years of education (high school). 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: N/A [...] 12:15 virtually Laura Carson, PhD, RD, LD, [facility] ACS-CEP, Psychologist documented in this encounter [facility] 05-29-2024 Evaluation note Diagnosis Onset Date Resolution Palpitations acute May 29, 2024 2:32pm Syncope acute May 29 2:32pm Hypertension chronic May 29, 2024 2:32pm [facility] Work Phone: 1(204) 667-824004-10-2025 Evaluation note* Diagnosis Onset Date Resolution Status [...] 2024 1:29pm Hypertension chronic July 24 1:29pm [facility] Work Phone: 1(351) 936-319303-28-2025 Instructions* Patient Instructions* Huey Cortes DO, PhD [...] me. - Continue working with your current near eastern archaeology lecturer, Carissa Sherwood, on a low-carb Mediterranean diet to help control your weight. - Increase physical activity as tolerated; a referral to an school cafeteria head cook will be availablein [facility] to help you develop an individualized exercise program. - Schedule a visit with the school cafeteria head cook through [facility]. - Schedule a visit with the endocrine psychologist through [facility] to address binge eating, emotional eating, and late-night eating. - Monitor and record your blood pressure, weight, and heart rate regularly; report these measurements at each follow-up visit. - Discuss the possibility of getting a new Richard device for blood sugar monitoring with your primary care provider. - Consider discussing bariatric surgery with your mom and decide if it's an option you want to pursue in the future. - Next follow-up appointment is in 3 months. [facility] NoteHNO ID: [id number] Author: HUEY CORTES DO, PhD Service: ? Author Type: Physician Type: Progress Notes Filed: 05/16/2024 18:12 Note Text: [facility] - NEW [facility]IRTUAL VISIT I have communicated my name and active licensure. The patient's identity and physical location were verified at the time of this visit. Either the patient or their legal business banking representative has been informed of the risks and benefits of -- and alternatives to -- treatment through a remote evaluation and consents to proceed with the evaluation remotely. The patient consented to the use of ambient AI software for draft documentation of the visit consistent with [facility]?s Notice of Privacy Practices. REASON [...] include family life. - Working with a near eastern archaeology lecturer on a Mediterranean diet. - Denies interest [...] discontinued due to hypoglycemia. - Not using Richard for blood glucose monitoring due to inaccurate [...] lose weight Pertinent medications causing weight gain: [place], imipramine, Lopressor, simvastatin Pertinent medications causing weight loss: None WEIGHT HISTORY AND TRAJECTORY: Weight Curve Childhood: Overweight High School: Overweight College: Overweight Adult years: Overweight Previous attempt for weight loss, including medications: Lifestyle modification, metformin Lifestyle Factors Diet and Eating behaviors 24h food recall: -- B: 10:30-11 AM. 1/2 sandwich of two pieces of [place] toast, a sausage bautista, fried egg. 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 Interest in bariatric surgery: Not sure MEN-2A/2B or MTC, including first degree relatives: Denies Pancreatitis/gastroparesis: Yes CAD/Stroke/Tachycar (more content not 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[id number] History of Present illness Narrative* Huey Cortes DO, PhD - 05/16/2024 8:49 AM EDT Images from the original note were not included. [facility] - NEW VIRTUAL VISIT I have communicated my name and active licensure. The patient's identity and physical location wereverified at the time of this visit. Either the patient or their legal business banking representative has been informed of the risks and benefits of -- and alternatives to -- treatment through a remote evaluation andconsents to proceed with the evaluation remotely. The patient consented to the use of ambient SPI Lasers software for draft documentation of the visit consistent with [facility] s Notice of Privacy Practices. [...] include family life. - Working with a near eastern archaeology lecturer on a Mediterranean diet. - Denies interest [...] discontinued due to hypoglycemia. - Not using Richard for blood glucose monitoring due to inaccurate [...] lose weight Pertinent medications causing weight gain: [place], imipramine, Lopressor, simvastatin Pertinent medications causing weight loss: None WEIGHT HISTORY AND TRAJECTORY: Weight Curve Childhood: Overweight High School: Overweight College: Overweight Adult years: Overweight Previous attempt for weight loss, including medications: Lifestyle modification, metformin Lifestyle Factors Diet and Eating behaviors 24h food recall: -- B: 10:30-11 AM. 1/2 sandwich of two pieces of [place] toast, a sausage bautista, fried egg. 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 - Referred to school cafeteria head cook to develop an individualized exercise program considering [...] accompanying intellectual impairment, requiring support (level 1) ([facility]) (F84.0) - Continue current management and support. 9. PCOS (polycystic ovarian syndrome) (E28.2) - Continue current management. 10. Irritable bowel syndrome with diarrhea (K58.0) - Symptoms vary between diarrhea and constipation. - Continue current management with Miralax and lactulose as needed. 11. Bipolar affective disorder, remission status unspecified ([facility]) (F31.9) - Continue current medications: lithium, aripiprazole [...] 4 - Moderate Huey Cortes DO, PhD [facility] Discharge summary [facility] Medical Records Department [address] [place] [address] Emergency Department Summary 05/15/24 MR#: [id number] Acct: [id number] Name: MARION GUTIERREZ Rep #:[id number] : 1995 28 From: Stan Lin DO PCP: Naina Da Silva Kimi, [employer] G[employer]-C Statu s:REG ER Location: ED HPI History [...] evaluation management. Patient denies any sick contacts [facility] Medical History Alcohol use Picking own [...] carbonate 600 mg capsule 600 mg PO Q mental health 01/24/22 10/22/23 History fremanezumab-vfrm 225 mg/1.5 mL 225 mg subcut QMONTH m igraine 10/03/22 11/21/22 History subcutaneous auto-injector (Ajovy) aripiprazole lauroxil 441 mg/1.6 441 mg IM .COMPLEX [facility] 12/18/22 10/23/23 History mL suspension, ext.rel. IM [...] following commands and that she was at [facility] year is 2024. NIH of 0 [...] % (Auto) 58.9 Lymph % (Auto) 31.2 [place] % (Auto) 9.0 Eos % (Auto) 0.4 [...] 21:00 IMPRESSION: No Acute Findings. Reading Location: [facility] Discharge Plan Triage Chief Complaint: Chest [...] Naina Da Silva Referrals: Naina Da Silva, [employer] G[employer]-C [Primary Care Provider] - Activity Restrictions/Additional Instructions: Follow with your primary care physician outpatient setting. Return with worsening symptoms or concerns. Chest x-ray is normal and your blood work was normal. Use your Reglan that you have at home fornausea and vomiting. Print Language: Bolivian Disposition Disposition: Home, Self Care What to do if you have Problems For any increased pain, shortness of breath, bleeding, nausea or vomiting, chestpain, or any unexpected problems, contact your Primary Care Provider. Call [facility] ([phone]) or report tothe closest Emergency Room. Call 911 if necessary. 05/15/24 0013 Cosigner Signature (if applicable): CC: REED [employer] G[employer]-C Naina Da Silva ~ Signed [facility]03-26-2025 Radiology Diagnostic study note [facility] Imaging Services [address] [place] [address] Chest 1 View (Portable) MR#: [id number] Acct: [id number] Name: DOCARTUROMARION CHAPARRON Rep #: [id number] : 1995 F 28 From: Jocelyne Strickland MD PCP: REED Sotomayor, [employer] G[employer]-C Status: PRE ER Study:Chest 1 View (Portable) Date of Exam: 05/14/24 Exam# [id number] Ordering Dr: Provider ,Ed P. PROCEDURE: CHEST [...] (Portable) IMPRESSION: No Acute Findings. Reading Location: [id number] CC: [facility] R[employer] G[employer]-C Naina Da Silva; ED PHYSICIAN PROVIDER ~ Truck Rental Service Attendant: Signed [facility]03-20-2025 Discharge summary [facility] Medical Records Department [address] [place] [address] Emergency Department Summary 05/08/24 MR#: [id number] Acct: [id number] Name: MARION GUTIERREZ Rep #:[id number] : 1995 28 From: Stan Lin DO PCP: REED Sotomayor, [employer] G[employer]-C Statu s:REG ER Location: ED HPI History [...] pressure further. Patient denies recent sick contacts. [facility] Medical History Alcohol use Picking own [...] lauroxil 441 mg/1.6 441 mg IM .COMPLEX [facility] 12/18/22 10/23/23 History mL suspension, ext.rel. IM syringe ([place]) cholecalciferol (vitamin D3) 25 25 mcg PO DAILY vitami n 12/18/22 10/22/23 History mcg (1,000 unit) tablet (Vitamin D3) imipramine HCl 25 mg tablet 25 mg PO DAILY mental [facility] 12/18/22 10/22/23 History mecobalamin (vitamin B12) 1,000 [...] Patient follow commands that she was at [facility] years 2024 Skin: Warm, dry, intact [...] % (Auto) 58.1 Lymph % (Auto) 30.5 [place] % (Auto) 10.3 H Eos % (Auto) [...] Clarity Clear Urine pH 7.0 Ur Specific [place] 1.005 Urine Protein 15 H Urine Glucose [...] abdominopelvic finding. 2. Moderate hepatomegaly. Reading Location: [id number] Discharge Plan Triage Chief Complaint: Nausea/Vomiting ED [...] Naina Da Silva Referrals: Naina Da Silva, [employer] G[employer]-C [Primary Care Provider] - Activity Restrictions/Additional Instructions: Follow-up your doctor in outpatient setting. Return with worsening symptoms or concerns. Your CT today did not show anything surgical. Use the prescriptions are sent to your pharmacy as prescribed. Print Language: Bolivian Disposition Disposition: Home, Self Care What to do if you have Problems For any increased pain, shortness of breath, bleeding, nausea or vomiting, chestpain, or any unexpected problems, contact your Primary Care Provider. Call [facility] ([phone]) or report tothe closest Emergency Room. Call 911 if necessary. 05/08/24 1717 Cosigner Signature (if applicable): CC: REED R[employer] G[employer]-C Naina Da Silva ~ Signed [facility]03-[facility]2025 Radiology Diagnostic study note [facility] Imaging Services [address] [place], [place] [id number] Abdomen/Pelvis W IV Cont ONLY MR#: [id number] Acct: [id number] Name: DOCARTUROTENZINMARIONBK KHOURY Rep #: [id number] : 1995 F 28 From: Jocelyne Strickland MD PCP: Naina Da Silva [facility], RIV[employer] HEATER GAS-C Status: REG ER Study:Abdomen/Pelvis W IV Cont ONLY Date of E xam: 05/08/24 Exam# [id number] Ordering Dr: Jojo Lin DO PROCEDURE: ABDOMEN/PELVIS [...] abdominopelvic finding. 2. Moderate hepatomegaly. Reading Location: [facility] CC: [facility] R[employer] GAS-C Naina Da Silva; Dr. Stan Lin DO ~ Truck Rental Service Attendant: Signed [facility]03-20-2025 Discharge summary Author Stan Lin [facility] Note Date/Time May 08, 2024 5:1 7pm [facility] Medical Records Department [address] [place] [address] Emergency Department Summary 05/08/24 MR#: [id number] Acct: [id number] Name: MARION GUTIERREZ Rep #:[id number] : 1995 28 From: Stan Lin DO PCP: REED Sotomayor, RIVET HE[employer] GAS-C Statu s:REG ER Location: ED HPI History [...] pressure further. Patient denies recent sick contacts. [facility] Medical History Alcohol use Picking own [...] lauroxil 441 mg/1.6 441 mg IM .COMPLEX [facility] 12/18/22 10/23/23 History mL suspension, ext.rel. IM [...] Patient follow commands that she was at [facility] years 2024 Skin: Warm, dry, intact [...] % (Auto) 58.1 Lymph % (Auto) 30.5 [place] % (Auto) 10.3 H Eos % (Auto) [...] Clarity Clear Urine pH 7.0 Ur Specific [place] 1.005 Urine Protein 15 H Urine Glucose [...] abdominopelvic finding. 2. Moderate hepatomegaly. Reading Location: [facility] Discharge Plan Triage Chief Complaint: Nausea/Vomiting [...] Naina Da Silva Referrals: Naina Da Silva, [employer] GAS-C [Primary Care Provider] - Activity Restrictions/Additional Instructions: Follow-up your doctor in outpatient setting. Return with worsening symptoms or concerns. Your CT today did not show anything surgical. Use the prescriptions are sent to your pharmacy as prescribed. Print Language: Bolivian Disposition Disposition: Home, Self Care What to do if you have Problems For any increased pain, shortness of breath, bleeding, nausea or vomiting, chestpain, or any unexpected problems, contact your Primary Care Provider. Call [facility] ([phone]) or report to the closest Emergency Room. Call 911 if necessary. 05/08/24 1717 <Electronically signed by Stan Lin DO> Cosigner Signature (if applicable): CC: REED [employer] G[employer]-C Naina Da Silva ~ Signed [facility] Work Phone: 1(781) 763-124602-25-2025 Instructions* Patient Instructions* Jey Johnson MD - 04/15/2024 11:39 AM EST Endocrine weight amangement referral given, but if you choose to stay in [place], then you can schedule with OBGYN in this building Continue with the same control for now, making sure not to miss any pills during the month course If it continues to be irregular, please keep us informed [facility] NoteHNO ID: [id number] Author: JEY JOHNSON MD Service: ? Author Type: Physician Type: Progress Notes Filed: 04/20/2024 15:26 Note Text: Endocrinology and Metabolism [place] Follow up note Chief complaint: Evaluation of [...] Mental Status Change Sea (more content not 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[facility]02-25-2025 History of Present illness Narrative* Jey Johnson MD - 04/15/2024 11:26 AM EST Endocrinology and Metabolism [place] Follow up note Chief complaint: Evaluation of [...] 07-23-2023 CORTISOL,F/24hr 46 ug/24 hr High 6-42 [facility] CORTISOL,U FREE 16 ug/L Normal Undefined [facility] Metanephrine Frac 24 HR UR on 07-23-2023 Metaneph,UR 24H 68 ug/24 hr Normal 36-209 [facility] Metanephrines,U 24 ug/L Normal Undefined [facility] Normetan,UR 24h 522 ug/24 hr High 95-449 [facility] Normetanephrine 183 ug/L Normal Undefined [facility] Catecholamines, 24 UR on 07-20-2023 Dopamine, Urine 580 ug/L Normal Undefined [facility] Dopamine,U,24HR 957 ug/24 hr High 0-510 [facility] Epineph.,U,24HR 5 ug/24 hr Normal 0-20 [facility] Epinephrine, U 3 ug/L Normal Undefined [facility] Norepin.,U,24HR 134 ug/24 hr Normal 0-135 [facility] Comment on above: Order Comment: Test(s) 327958-Vfzikjtimyj, Urine; - Norepinephrine, Ur; 914414-Vaubwncr, Urinewas developed and its performance characteristicsdetermined by [employer]. It has notbeen cleared or approvedby the Food and Drug Administration. Performed By: #### [id number] ####[facility] [address] [place], [place],[id number] Norepinephrin,U 81 ug/L Normal Undefined [facility] Adrenocorticotropic Hormone on 07-17-2023 ACTH 9.7 pg/mL Normal 7.2-63.3 [facility] CORTISOL SERUM on 07-17-2023 CORTISOL 20.10 ug/dL Normal 3.44-22.45 [facility] Catecholamines, Plasma on 07-17-2023 DOPAMINE <30 Normal 0-48 [facility] EPINEPHRINE <15 Normal 0-62 [facility] NOREPINEPHRINE 429 pg/mL Normal 0-874 [facility] Gastrin, Serum on 07-17-2023 GASTRIN 265 pg/mL High 0-115 [facility] Insulin Level on 07-17-2023 INSULIN,FASTING 93.7 uIU/mL High 2.6-24.9 [facility] Insulin Like Growth Factor on 07-17-2023 SOMATOMEDIN C 122 ng/mL Normal 91-308 [facility] Chromogranin A 206.0 ng/mL Abnormal 0.0-101.8 [facility] Renin/Aldosterone Activity on 07-17-2023 ALD/RENIN RATIO 11.6 Normal 0.0-30.0 [facility] Performed By: #### L3400.1350, L3300.3500, L3300.1800, L3430.0100, L3300.1000, L3300.1050, L3100.4810 ####[facility] [address] [place], [place], [id number] ALDOSTERONE,S 45.0 ng/dL High 0.0-30.0 [facility] RENIN, PLASMA 3.873 ng/mL/hr Normal 0.167-5.380 [facility] BUN/CRE 18.1 RATIO Normal 10-20 [facility] CA,Total 9.0 mg/dL Normal 8.5-10.1 [facility] Chloride [Moles/Vol] 110 mmol/L High 98-107 [facility] CO2 [Moles/Vol] 25.0 mmol/L Normal 21.0-32.0 [facility] Creatinine [Mass/Vol] 0.66 mg/dL Normal 0.55-1.02 [facility] Performed By: #### L100.0100, L500.4050, L506.1000, L501.09905, L501.9520, L506.0400, L501.9060 ####[facility] [address] [place], [address] EST GFR - AA 138 mL/min Normal >60 [facility] Performed By: #### L100.0100, L500.4050, L506.1000, L501.05531, L501.9520, L506.0400, L501.9060 ####[facility] [address] [place], [place], [id number] GAP 3 Low 5-15 [facility] GFR/1.73 sq M.predicted among non-blacks MDRD (S/P/Bld) [Vol rate/Area] 114 mL/min/(1.73_m2) Normal>60 [facility] Globulin (S) [Mass/Vol] 3.8 g/dL Normal 2.2-4.2 [facility] Glucose [Mass/Vol] 124 mg/dL High 74-106 [facility] Performed By: #### L100.0100, L500.4050, L506.1000, L501.74889, L501.9520, L506.0400, L501.9060 ####[facility] [address] [place], [place], [address] Potassium [Moles/Vol] 4.0 mmol/L Normal 3.5-5.1 [facility] Sodium [Moles/Vol] 138 mmol/L Normal 136-145 [facility] T PROT 7.0 g/dL Normal 6.4-8.2 [facility] Urea nitrogen [Mass/Vol] 12 mg/dL Normal 7-18 [facility] Free T3 on 07-05-2023 Free T3 [Mass/Vol] 2.4 pg/mL Normal 2.18-3.98 [facility] Comment on above: Performed By: #### L100.0100, L500.4050, L506.1000, L501.92333, L501.9520, L506.0400, L501.9060 ####[facility] [address] [place], [address] [place] on 07-05-2023 LI 0.80 mmol/L Normal 0.60-1.20 [facility] T4 Free Direct on 07-05-2023 T4 FREE DIRECT 1.04 ng/dL Normal 0.76-1.46 [facility] Comment on above: Performed By: #### L100.0100, L500.4050, L506.1000, L501.10955, L501.9520, L506.0400, L501.9060 ####[facility] [address] [place], [address] Thyroid Stim Hormone (TSH) on 07-05-2023 TSH 2.10 uIU/mL Normal 0.358-3.74 [facility] Vitamin D,25 Hydroxy on 07-05-2023 Vitamin D 25-OH 30.3 ng/mL Normal [facility] Latest Ref Rng 12/05/2023 Sex Hormone [...] 24 hr urine free cortisol checked at [facility], along with 24 hr urine metanephrines and [...] Moderate Jey Johnson MD Endocrinology Associate Staff [facility] Endocrinology and Metabolism [place] [phone] documented in this [facility] Telephone encounter Note * Telephone Encounter - Cora Bruce LPN - 04/15/2024 7:34 AM EST Left message for patient with negative results.Cora Bruce LPN [facility]02-25-[facility] Miscellaneous Notes* Telephone Encounter - Cora Bruce LPN - 04/15/2024 7:34 AM EST Left message for patient with negative results.Cora Bruce LPN * Telephone Encounter - Maru Galicia PA - 04/15/2024 7:09 AM EST Negative COVID flu RSV documented in this encounterSouth[facility]02-[facility]-2025 Telephone encounter Note * Telephone Encounter - Maru Galicia PA - 04/15/2024 7:09 AM EST Negative COVID flu RSV [facility] Work Phone: 1(635) 336-619802-24-2025 VrjyFYDB-CEH-3 (AGENT OF COVID-19) RNA: Not detected INFLUENZA A RNA: Not detected INFLUENZA B RNA: Not detected RESPIRATORY SYNCYTIAL VIRUS (RSV) RNA: Not detectedGalion HospitalComment on above:Performed By: #### 09923- [id number] #### [facility] CLIA [id number] [address] [place] [address] OF [id number] NoteHNO ID: [id number] Author: LINCOLN BALDERAS MD Service: ? Author Type: Physician Type: Progress Notes Filed: 04/14/2024 16:34 Note Text: Patient presents with: Diarrhea: vomiting, cough, chills and fever x 4 days HPI: Feeling sick starting 4 days ago. 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 UsTrendyUCH VERIO TEST STRIPS test strip 1 Each [...] BY MOUTH TWICE DAILY NEEDED FOR CONSTIPATION. AdiosoTOUCH DELICA PLUS LANCET 33 gauge 1 Each [...] for results if she cannot log into [employer] tomorrow. Continue supportive care for viral illness. She is beyond the therapeutic window for tamiflu. Lincoln Balderas, [facility]02-24-2025 History of Present illness Narrative* Lincoln Balderas MD - 04/14/2024 4:22 PM EST Patient presents with: Diarrhea: vomiting, cough, chills and fever x 4 days HPI: Feeling sick starting 4 days ago. 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 UsTrendyUCH VERIO TEST STRIPS test strip 1 Each [...] for results if she cannot log into [employer] tomorrow. Continue supportive care for viral illness. She is beyond the therapeutic window for tamiflu. Lincoln Balderas MD documented in this encounterSouth[facility] Center01-06-2025 History of Present illness Narrative* Carissa Sherwood, JOSE ALFREDO - 02/25/2024 9:00 AM EST [facility] [...] visit. Either the patient or their legal business banking representative has been informed of the risks and [...] Can of spaghetti and meatballs, OR Salad ([place] dressing, cheese, fried onions, croutons, wanton strips, [...] relates skipping meals in the past and [facility] Why Weight Program (relates no success w/ wt loss w/ this program) - Current medications for wt loss: - Monitoring BG via Freestyle Richard 2, Pt reports readings: -- Very High/High: [...] Inject 441 mg intramuscularly every 4 weeks. APJeT VERIO TEST STRIPS test strip 1 Each [...] BY MOUTH TWICE DAILY NEEDED FOR CONSTIPATION. 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 Possible Medications/ Supplements for PCOS and [...] by: Carissa Sherwood RD documented in this encounterSouth[facility] Center01-06-2025 NoteHNO ID: [id number] Author: CARISSA SHERWOOD RD Service: ? Author [...] visit. Either the patient or their legal business banking representative has been informed of the risks and [...] Can of spaghetti and meatballs, OR Salad (S[place] Arabian dressing, cheese, fried onions, croutons, wanton strips, [...] relates skipping meals in the past and [facility] Why Weight Program (relates no success w/ wt loss w/ this program) - Current medications for wt loss: - Monitoring BG via Freestyle Richard 2, Pt reports readings: -- Very High/High: [...] Inject 441 mg intramuscularly every 4 weeks. [employer] VERIO TEST STRIPS test strip 1 Each [...] BY MOUTH TWICE DAILY NEEDED FOR CONSTIPATION. AdiosoTOUCH DELICA PLUS LANCET 33 gauge 1 Each [...] Lab Results Component V (more content not 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[facility]12-06-[facility]24 NoteHNO ID: [id number] Author: LOUIS SCHMIDT APRN.WATER RESOURCES TECHNICAL OFFICER Service: ? Author Type: Nurse Practitioner Type: [...] Inject 441 mg intramuscularly every 4 weeks. APJeT VERIO TEST STRIPS test strip 1 Each [...] BY MOUTH TWICE DAILY NEEDED FOR CONSTIPATION. APJeT DELICA PLUS LANCET 33 gauge 1 Each [...] two times a day for 7 days. uacfrfxo-iyqapduyq-tzggeignglthed (CORTISPORIN) 3.5-10,000-1 mg/mL-unit/mL-% otic suspension Use 3 [...] ICD9: 382.9, ICD10: H66.92 (primary diagnosis) - PBJKGFAY-ODGYAHGEE-WRVYSDJCR 3.5 MG-10,000 UNIT/ML-1 % EAR DROPS,SUSP 2. Acute otitis externa of left ear, unspecified type - ICD9: 380.10, ICD10: H60.502 - AMOXICILLIN 875 MG TABLET Prescription instructions reviewed (more content not 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[facility]12-06-2024 History of Present illness Narrative* Louis Schmidt APRN.WATER RESOURCES TECHNICAL OFFICER - 01/25/2024 12:54 PM EST CC: Patient [...] Inject 441 mg intramuscularly every 4 weeks. UsTrendyUCH VERIO TEST STRIPS test strip 1 Each [...] BY MOUTH TWICE DAILY NEEDED FOR CONSTIPATION. AdiosoTOUCH DELICA PLUS LANCET 33 gauge 1 Each [...] two times a day for 7 days. qdgxvgln-kaclvbhoq-iearvatvmwminw (CORTISPORIN) 3.5-10,000-1 mg/mL-unit/mL-% otic suspension Use 3 [...] ICD9: 382.9, ICD10: H66.92 (primary diagnosis) - TPCKLOYJ-CEKHDYVEH-QDYXYSFIL 3.5 MG-10,000 UNIT/ML-1 % EAR DROPS,SUSP 2. Acute otitis externa of left ear, unspecified type - ICD9: 380.10, ICD10: H60.502 - AMOXICILLIN 875 MG TABLET Prescription instructions reviewed with patient as applicable. Potential red flag symptoms discussed with the patient. Reviewed appropriate action plan to take if red flag symptoms occur. Patient agreeable to treatment plan. Louis Schmidt APRN.CNP documented in this encounterSouth[facility] Center12-06-2024 Telephone encounter Note * Telephone Encounter - Natalee Rodriguez LPN - 01/25/2024 10:48 AM EST Patient given results and verbalized understanding of instructions given.. Natalee Rodriguez LPN [facility]12-[facility] Miscellaneous Notes* Telephone Encounter - Natalee Rodriguez LPN - 01/25/2024 10:48 AM EST Patient given results and verbalized understanding of instructions given.. Natalee Rodriguez LPN * Telephone Encounter - Mallika Mo APRN.CNP - 01/25/2024 7:11 AM EST Please notify that covid/flu/rsv testing negative. Continue with plan of care as discussed during visit. documented in this encounterSouth[facility] Center12-06-2024 Telephone encounter Note * Telephone Encounter - Mallika Mo APRN.CNP - 01/25/2024 7:11 AM EST Please notify that covid/flu/rsv testing negative. Continue with plan of care as discussed during visit. [facility] Work Phone: [phone]) 721-659712-05-2024 Instructions* Patient Instructions* Aberegg, Krislyn P, PA - 01/24/2024 2:04 PM EST PHARYNGITIS [...] for a few days. documented in this encounterSouthview Medical Center12-05-2024 NoteHNO ID: [id number] Author: MARU GALICIA PA Service: ? Author Type: Physician Outside Property Agent Type: Progress Notes Filed: 01/24/2024 14:08 Note Text: This note was created using [employer]riter. Subjective Marion Gutierrez is a 28 year [...] (primary diagnosis) - suspe (more content not 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[facility]12-05-[facility] History of Present illness Narrative* Maru Galicia PA - 01/24/2024 2:03 PM EST This note was created using [employer]riter. Subjective Marion Gutierrez is a 28 year [...] discussed in detail warranting prompt ER evaluation. EDELMIRA Gillespie documented in this encounterSouthview Medical Center11-25-2024 Evaluation note* Diagnosis Onset Date Resolution Status Admit Date Palpitations acute December 2:29pm Syncope acute January 14, 2024 2:29pm Hypertension chronic December 2:29pm [facility] Work Phone: [phone]) 270-583511-19-2024 Instructions* Patient Instructions* Jey Johnson MD - 01/08/2024 12:06 PM EST Please taking control pills prescribed Schedule for a dietitian visit for conservative weight loss documented in this encounterSouthview Medical Center11-19-2024 NoteHNO ID: [id number] Author: JEY JOHNSON MD Service: ? Author Type: Physician Type: Progress Notes Filed: 01/09/2024 18:32 Note Text: Endocrinology and Metabolism [place] Follow up note Chief complaint: Evaluation of [...] Sitting, BP Cuff Siz (more content not 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[facility]11-19-[facility] History of Present illness Narrative* Jey Johnson MD - 01/08/2024 12:00 PM EST Endocrinology and Metabolism [place] Follow up note Chief complaint: Evaluation of [...] 07-23-2023 CORTISOL,F/24hr 46 ug/24 hr High 6-42 [facility] CORTISOL,U FREE 16 ug/L Normal Undefined [facility] Metanephrine Frac 24 HR UR on 07-23-2023 Metaneph,UR 24H 68 ug/24 hr Normal 36-209 [facility] Metanephrines,U 24 ug/L Normal Undefined [facility] Normetan,UR 24h 522 ug/24 hr High 95-449 [facility] Normetanephrine 183 ug/L Normal Undefined [facility] Catecholamines, 24 UR on 07-20-2023 Dopamine, Urine 580 ug/L Normal Undefined [facility] Dopamine,U,24HR 957 ug/24 hr High 0-510 [facility] Epineph.,U,24HR 5 ug/24 hr Normal 0-20 [facility] Epinephrine, U 3 ug/L Normal Undefined [facility] Norepin.,U,24HR 134 ug/24 hr Normal 0-135 [facility] Comment on above: Order Comment: Test(s) 928205-Isckrgwvlua, Urine; - Norepinephrine, Ur; 708406-Bpiassra, Urinewas developed and its performance characteristicsdetermined by [employer]. It has notbeen cleared or approvedby the Food and Drug Administration. Performed By: #### L3600.0150 ####[facility] [address] [place], [place],[address] Norepinephrin,U 81 ug/L Normal Undefined [facility] Adrenocorticotropic Hormone on 07-17-2023 ACTH 9.7 pg/mL Normal 7.2-63.3 [facility] CORTISOL SERUM on 07-17-2023 CORTISOL 20.10 ug/dL Normal 3.44-22.45 [facility] Catecholamines, Plasma on 07-17-2023 DOPAMINE <30 Normal 0-48 [facility] EPINEPHRINE <15 Normal 0-62 [facility] NOREPINEPHRINE 429 pg/mL Normal 0-874 [facility] Gastrin, Serum on 07-17-2023 GASTRIN 265 pg/mL High 0-115 [facility] Insulin Level on 07-17-2023 INSULIN,FASTING 93.7 uIU/mL High 2.6-24.9 [facility] Insulin Like Growth Factor on 07-17-2023 SOMATOMEDIN C 122 ng/mL Normal 91-308 [facility] Chromogranin A 206.0 ng/mL Abnormal 0.0-101.8 [facility] Renin/Aldosterone Activity on 07-17-2023 ALD/RENIN RATIO 11.6 Normal 0.0-30.0 [facility] Performed By: #### L3400.1350, L3300.3500, L3300.1800, L3430.0100, L3300.1000, L3300.1050, L3100.4810 ####[facility] [address] [place], [place], [id number] ALDOSTERONE,S 45.0 ng/dL High 0.0-30.0 [facility] RENIN, PLASMA 3.873 ng/mL/hr Normal 0.167-5.380 [facility] BUN/CRE 18.1 RATIO Normal 10-20 [facility] CA,Total 9.0 mg/dL Normal 8.5-10.1 [facility] Chloride [Moles/Vol] 110 mmol/L High 98-107 [facility] CO2 [Moles/Vol] 25.0 mmol/L Normal 21.0-32.0 [facility] Creatinine [Mass/Vol] 0.66 mg/dL Normal 0.55-1.02 [facility] Performed By: #### L100.0100, L500.4050, L506.1000, L501.22839, L501.9520, L506.0400, L501.9060 ####[facility] [address] [place], [address] EST GFR - AA 138 mL/min Normal >60 [facility] Performed By: #### L100.0100, L500.4050, L506.1000, L501.87289, L501.9520, L506.0400, L501.9060 ####[facility] [address] [place], [address] GAP 3 Low 5-15 [facility] GFR/1.73 sq M.predicted among non-blacks MDRD (S/P/Bld) [Vol rate/Area] 114 mL/min/(1.73_m2) Normal>60 [facility] Globulin (S) [Mass/Vol] 3.8 g/dL Normal 2.2-4.2 [facility] Glucose [Mass/Vol] 124 mg/dL High 74-106 [facility] Performed By: #### L100.0100, L500.4050, L506.1000, L501.32773, L501.9520, L506.0400, L501.9060 ####[facility] [address] [place], [place], [address] Potassium [Moles/Vol] 4.0 mmol/L Normal 3.5-5.1 [facility] Sodium [Moles/Vol] 138 mmol/L Normal 136-145 [facility] T PROT 7.0 g/dL Normal 6.4-8.2 [facility] Urea nitrogen [Mass/Vol] 12 mg/dL Normal 7-18 [facility] Free T3 on 07-05-2023 Free T3 [Mass/Vol] 2.4 pg/mL Normal 2.18-3.98 [facility] Comment on above: Performed By: #### L100.0100, L500.4050, L506.1000, L501.48603, L501.9520, L506.0400, L501.9060 ####[facility] [address] [place], [place], [address] [place] on 07-05-2023 LI 0.80 mmol/L Normal 0.60-1.20 [facility] T4 Free Direct on 07-05-2023 T4 FREE DIRECT 1.04 ng/dL Normal 0.76-1.46 [facility] Comment on above: Performed By: #### L100.0100, L500.4050, L506.1000, L501.36117, L501.9520, L506.0400, L501.9060 ####[facility] [address] [place], [address] Thyroid Stim Hormone (TSH) on 07-05-2023 TSH 2.10 uIU/mL Normal 0.358-3.74 [facility] Vitamin D,25 Hydroxy on 07-05-2023 Vitamin D 25-OH 30.3 ng/mL Normal [facility] Latest Ref Rng 12/05/2023 Sex Hormone [...] 24 hr urine free cortisol checked at [facility], along with 24 hr urine metanephrines and [...] Moderate Jey Johnson MD Endocrinology Associate Staff [facility] Endocrinology and Metabolism [place] [phone] documented in this encounterSouthview [facility] Center11-11-2024 History of Present illness Narrative* Alisson Wallace SIRENA [place] - 12/31/2023 2:00 PM EST Images from [...] liver Migraines (CMS/HCC) ER 08/29/21 for [facility] Polycystic ovarian disease Suicide attempt (CMS/HCC) THREE [...] plan, and return instructions. documented in this encounterResearch Belton HospitalEnbyvxtzrs76-24-9949 Telephone encounter Note* Telephone Encounter - Mane Bragg RN - 12/19/2023 12:19 PM EDT Signed record release received from [facility] requesting previous OV notes from Dr. Johnson. Pt had 1 OV in 10/2023. This was faxed electronically through [employer] (formerly [employer]). Mane Bragg RN December 19, 2023 12:20 PM [facility]10[facility] Miscellaneous Notes* Telephone Encounter - Mane Bragg RN - 12/19/2023 12:19 PM EDT Signed record release received from [facility] requesting previous OV notes from Dr. Johnson. Pt had 1 OV in 10/2023. This was faxed electronically through [employer] (formerly [employer]). Mane Bragg RN December 19, 2023 12:20 PM documented in this encounterSouthview Medical Center10-28-2024 Telephone encounter Note * Telephone Encounter - Rhonda Rhoda - 12/17/2023 9:02 AM EDT Pt's mom called and schedule in office appt for 12/20/23 [facility] HospitalBgldmdqwoa54-35-4705 Miscellaneous Notes* Telephone Encounter - Rhonda Kwanfidececilia - 12/17/2023 9:02 AM EDT Pt's mom called and schedule in office appt for 12/20/23 * Telephone Encounter - Rhonda Arcoscecilia - 12/12/2023 10:48 AM EDT LM today- on patient's cell ph#-12/12/23-for pt to call back and schedule an in office appt * Telephone Encounter - Neli Russell MA - 12/06/2023 10:51 AM EDT Chart reviewed. Pt due for appt. Please call to schedule prior to next injection. Last dispensed 11/19/23. documented in this encounterResearch Belton HospitalDrkuwrlrdo77-62-3148 Telephone encounter Note* Telephone Encounter - Rhonda Duong - 12/12/2023 10:48 AM EDT LM today- on patient's cell ph#-12/12/23-for pt to call back and schedule an in office appt [facility] HospitalLpwppmlcdv83-57-7475 Telephone encounter Note* Telephone Encounter - Neli GonzalesTIMMY fernandez - 12/06/2023 10:51 AM EDT Chart reviewed. Pt due for appt. Please call to schedule prior to next injection. Last dispensed 11/19/23. [facility] HospitalUumtftfvpx57-30-3263 History of Present illness Narrative* Louis Schmidt APRN.FISH - 11/27/2023 7:51 PM EDT Patient came [...] have any testing available. documented in this encounterSouthview Medical Center10-08-2024 NoteHNO ID: [id number] Author: LOUIS SCHMIDT APRN.FISH Service: ? Author [...] as we do not have any testing available.[facility] 10-26-2023 Instructions* Patient Instructions* Jey Johnson MD - 10/26/2023 3:49 PM EDT Please discontinue spironolactone and provera for abpout 4 to 6 weeks before doing these labs ordered All labs to be done on fasting at 8 am Hold any other over the counter supplements for 3 days atleast before labs. Avoid any steroids until the labs are drawn documented in this encounterSouthview Medical Center09-06-2024 NoteHNO ID: [id number] Author: JEY JOHNSON MD Service: ? Author Type: Physician Type: Progress Notes Filed: 10/26/2023 18:35 Note Text: Endocrinology and Metabolism [place] Initial [facility] Visit Note REASON FOR CONSULT: [...] Pollen Extracts Hives, Intolerance (more content not 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[facility]09-06-20[facility] History of Present illness Narrative* Jey Johnson MD - 10/26/2023 3:31 PM EDT Endocrinology and Metabolism [place] Initial [facility] Visit Note REASON FOR CONSULT: Evaluation of ovarian hyperandrogenism REQUESTING PHYSICIAN: No referring provider defined for this encounter. Phone: N/A Fax: My final recommendations will be communicated back to the requesting physician by way of shared medical record or letter via [place] mail. LUIS A Marion Gutierrez is a 28 year old [...] 07-23-2023 CORTISOL,F/24hr 46 ug/24 hr High 6-42 [facility] CORTISOL,U FREE 16 ug/L Normal Undefined [facility] Metanephrine Frac 24 HR UR on 07-23-2023 Metaneph,UR 24H 68 ug/24 hr Normal 36-209 [facility] Metanephrines,U 24 ug/L Normal Undefined [facility] Normetan,UR 24h 522 ug/24 hr High 95-449 [facility] Normetanephrine 183 ug/L Normal Undefined [facility] Catecholamines, 24 UR on 07-20-2023 Dopamine, Urine 580 ug/L Normal Undefined [facility] Dopamine,U,24HR 957 ug/24 hr High 0-510 [facility] Epineph.,U,24HR 5 ug/24 hr Normal 0-20 [facility] Epinephrine, U 3 ug/L Normal Undefined [facility] Norepin.,U,24HR 134 ug/24 hr Normal 0-135 [facility] Comment on above: Order Comment: Test(s) 354776-Nkkcmtaiepi, Urine; - Norepinephrine, Ur; 211039-Almhmbhb, Urinewas developed and its performance characteristicsdetermined by [employer]. It has notbeen cleared or approvedby the Food and Drug Administration. Performed By: #### L3600.0150 ####[facility] [address] [place], [place],[address] Norepinephrin,U 81 ug/L Normal Undefined [facility] Adrenocorticotropic Hormone on 07-17-2023 ACTH 9.7 pg/mL Normal 7.2-63.3 [facility] CORTISOL SERUM on 07-17-2023 CORTISOL 20.10 ug/dL Normal 3.44-22.45 [facility] Catecholamines, Plasma on 07-17-2023 DOPAMINE <30 Normal 0-48 [facility] EPINEPHRINE <15 Normal 0-62 [facility] NOREPINEPHRINE 429 pg/mL Normal 0-874 [facility] Gastrin, Serum on 07-17-2023 GASTRIN 265 pg/mL High 0-115 [facility] Insulin Level on 07-17-2023 INSULIN,FASTING 93.7 uIU/mL High 2.6-24.9 [facility] Insulin Like Growth Factor on 07-17-2023 SOMATOMEDIN C 122 ng/mL Normal 91-308 [facility] Chromogranin A 206.0 ng/mL Abnormal 0.0-101.8 [facility] Renin/Aldosterone Activity on 07-17-2023 ALD/RENIN RATIO 11.6 Normal 0.0-30.0 [facility] Performed By: #### L3400.1350, L3300.3500, L3300.1800, L3430.0100, L3300.1000, L3300.1050, L3100.4810 ####[facility] [address] [place], [place], [id number] ALDOSTERONE,S 45.0 ng/dL High 0.0-30.0 [facility] RENIN, PLASMA 3.873 ng/mL/hr Normal 0.167-5.380 [facility] BUN/CRE 18.1 RATIO Normal 10-20 [facility] CA,Total 9.0 mg/dL Normal 8.5-10.1 [facility] Chloride [Moles/Vol] 110 mmol/L High 98-107 [facility] CO2 [Moles/Vol] 25.0 mmol/L Normal 21.0-32.0 [facility] Creatinine [Mass/Vol] 0.66 mg/dL Normal 0.55-1.02 [facility] Performed By: #### L100.0100, L500.4050, L506.1000, L501.89876, L501.9520, L506.0400, L501.9060 ####[facility] [address] [place], [place], [address] EST GFR - AA 138 mL/min Normal >60 [facility] Performed By: #### L100.0100, L500.4050, L506.1000, L501.86827, L501.9520, L506.0400, L501.9060 ####[facility] [address] [place], [place], [address] GAP 3 Low 5-15 [facility] GFR/1.73 sq M.predicted among non-blacks MDRD (S/P/Bld) [Vol rate/Area] 114 mL/min/(1.73_m2) Normal>60 [facility] Globulin (S) [Mass/Vol] 3.8 g/dL Normal 2.2-4.2 [facility] Glucose [Mass/Vol] 124 mg/dL High 74-106 [facility] Performed By: #### L100.0100, L500.4050, L506.1000, L501.00151, L501.9520, L506.0400, L501.9060 ####[facility] [address] [place], [place], [id number] Potassium [Moles/Vol] 4.0 mmol/L Normal 3.5-5.1 [facility] Sodium [Moles/Vol] 138 mmol/L Normal 136-145 [facility] T PROT 7.0 g/dL Normal 6.4-8.2 [facility] Urea nitrogen [Mass/Vol] 12 mg/dL Normal 7-18 [facility] Free T3 on 07-05-2023 Free T3 [Mass/Vol] 2.4 pg/mL Normal 2.18-3.98 [facility] Comment on above: Performed By: #### L100.0100, L500.4050, L506.1000, L501.53913, L501.9520, L506.0400, L501.9060 ####[facility] [address] [place], [place], [id number] [place] on 07-05-2023 LI 0.80 mmol/L Normal 0.60-1.20 [facility] T4 Free Direct on 07-05-2023 T4 FREE DIRECT 1.04 ng/dL Normal 0.76-1.46 [facility] Comment on above: Performed By: #### L100.0100, L500.4050, L506.1000, L501.36671, L501.9520, L506.0400, L501.9060 ####[facility] [address] [place], [address] Thyroid Stim Hormone (TSH) on 07-05-2023 TSH 2.10 uIU/mL Normal 0.358-3.74 [facility] Vitamin D,25 Hydroxy on 07-05-2023 Vitamin D 25-OH 30.3 ng/mL Normal [facility] ASSESSMENT AND PLAN Patient has autism and Irregular cycles/amenorrhea: Check for total, bioavailable and free testosterone, SHBG, DHEA, androstenedione, prolactin, TSH, free T4, estrogen, FSH, LH Due to dizziness/lightheadedness, will check for cortisol and ACTH once again. 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 Jey Johnson MD Endocrinology Associate Staff [facility] Endocrinology and Metabolism [place] [phone] documented in this [facility]2024 [facility]07-25[facility] History of Present illness Narrative* Lincoln Balderas MD - 09/13/2023 4:24 PM EDT [...] the procedure. Discomfort and hearing decrease resolved. Lincoln Balderas MD documented in this [facility]03-19-2024 History of Present illness Narrative* [...] okay with this plan. documented in this encounterSouth[facility]02-17-2024 Discharge summary Author Ozzy Bright [facility] April 08, 2023 6:39am Note Date/Time April 07, 2023 4:27pm [facility] Medical Records Department [address] [place] [address] Emergency Department Summary 04/07/23 MR#: [id number] Acct: [id number] Name: MARION GUTIERREZ Rep #:[id number] : 1995 27 From: Lianet HICKEY PCP: HORTENSIA Sotomayor Status:REG [...] substance use, visual/tactile hallucinations, and homicidal thoughts. [facility] <EDELMIRA White - Last Filed: 04/07/23 20:30> [facility] Medical History Anxiety Arthritis Autism Back [...] <EDELMIRA White - Last Filed: 04/07/23 20:30> [facility] MDM Narrative Medical decision making narrative: Patient [...] % (Auto) 66.2 Lymph % (Auto) 24.6 [place] % (Auto) 7.3 Eos % (Auto) 1.0 [...] Kamara, DO - Last Filed: 04/07/23 21:29> [facility] Lab Data Labs: Laboratory Results - last 24 hr 04/07/23 04/07/23 16:55 18:10 WBC 9.3 RBC 4.67 Hgb 12.7 Hct 40.4 MCV 86.5 MCH 27.2 MCHC 31.4 L RDW Std Deviation 43.9 RDW Coeff of Delmy 13.9 Plt Count 340 MPV 9.0 Immature Gran % (Auto) 0.400 Neut % (Auto) 66.2 Lymph % (Auto) 24.6 [place] % (Auto) 7.3 Eos % (Auto) 1.0 [...] management plan. This note was generated with Get[employer] dictation software. It may contain incorrectwords, spelling, [...] Silva NP Referrals: Naina Da Silva NP, [facility] [Primary Care Provider] - What to do if you have Problems For any increased pain, shortness of breath, bleeding, nausea or vomiting, chestpain, or any unexpected problems, contact your Primary Care Provider. Call [facility] ([phone]) or report to the closest Emergency Room. Call 911 if necessary. 04/07/232029 <Electronically signed by Lianet HICKEY> Cosigner Signature (if applicable): 04/07/232128 <Electronically signed by Bridger Kamara DO> CC: LAKESHAC Naina Da Silva ~ Signed [facility] Work Phone: 1(672) 675-897312-11-2023 Discharge summary Author Domitila Carr [facility] January 29, 2023 2:25pm Note Date/Time January 29, 2023 2:25pm [facility] [address] [place] [address] [address] [place] [id number] / REHABILITATION SERVICES DISCHARGE SUMMARY MR#: [id number] Acct: [id number] Name: MARION GUTIERREZ Rep #: [id number] : 1995 27 From: Domitila Uribe Referring Dr.: Dr. Laura Li MD Status: REG R Insurance: [facility] SELF PAY INSURANCE Discharge Summary D/C summary: [...] please feel free to call me at [phone]. Thank you for the referral of thispatient. Sincerely, Domitila Carr, WALLY Balance/Gait/Functional tests Balance/Special Test Scores Lower Extremity Functional Score: 75 Improvement % Improvement: 100 <Electronically signed by Domitila Carr MPT> 01/29/23 1425 CC: HORTENSIA Da Silva; Dr. Laura Li MD ~ Signed [facility] Work Phone: 1(659) 872-552211-01-2023 Discharge summary Author Laura Li [facility] December 20, 2022 11:29am Note Date/Time December 20, 2022 1 1:28am [facility] Medical Records Department [address] [place] [address] Discharge Summary 12/20/22 1127 MR#: [id number] Acct: [id number] Name: MARION GUTIERREZ Rep #:[id number] : 1995 27 From: Laura Li MD PCP: [facility] atus:ADM IN Location: [facility] [id number] Providers Date of Admission: 12/19/22 Date of Discharge: 12/20/22 Primary Care Physician: [facility] Reason For Visit: SYNCOPE Diagnosis Discharge Diagnosis [...] % (Auto) 55.7, Lymph % (Auto) 34.0, [place]% (Auto) 7.5, Eos % (Auto) 2.0, Baso [...] Attending Provider: Laura Li [facility] Consult[facility] Providers: [place] Wisdom Discharge Orders/Prescriptions Prescriptions: [...] mg PO DAILY Referrals / Follow Up: [facility] [Primary Care Provider] - Within 1 Week Disposition Disposition (needs filled in before D/C Order can be placed): Home, Self Care Charges/Coding Visit Charges Inpatient E&M: 19799 Disch Hosp >30min 12/20/22 1129 <Electronically signed by Laura Li MD> Cosigner Signature (if applicable): CC: Dr. Laura Li MD; [facility]~ Signed [facility] Work Phone: 1(611) 528-451311-01-2023 Progress note Author Laura Li [facility] December 20, 2022 11:27am Note Date/Time December 20, 2022 8 :26am [facility] Medical Records Department [address] [place] [address] Progress Note - Hospitalist 12/20/22825 MR#: [id number] Acct: [id number] Name: MARION GUTIERREZ Rep #:[id number] : 1995 27 From: Laura Li MD PCP: [facility] atus:ADM IN Location: [facility] [id number]- 1 Reason for Visit Reason for Visit: Diagnoses [...] % (Auto) 55.7, Lymph % (Auto) 34.0, [place]% (Auto) 7.5, Eos % (Auto) 2.0, Baso [...] limited. Ordering Physician: [place] Wisdom Referring Physician: [facility] Performed By: Kaur Kinsey RDCS, [...] 40 Minutes Charges/Coding Visit Charges Inpatient E&M: 62665 Subs Hosp L2 12/20/22 1127 <Electronically signed by Laura Li MD> Cosigner Signature (if applicable): CC: ~ Signed [facility] Work Phone: 1(751) 578-190010-31-2023 Progress note Author Laura Li [facility] December 19, 2022 2:11pm Note Date/Time December 19, 2022 1 1:20am [facility] Medical Records Department [address] [place] [address] Progress Note - Hospitalist 12/19/221119 MR#: [id number] Acct: [id number] Name: MARION GUTIERREZ Rep #:[id number] : 1995 27 From: Laura Li MD PCP: [facility] St atus:ADM GARRET Location: [place] [address] Reason for Visit Reason for Visit: Diagnoses [...] 73.9 H, Lymph % (Auto) 18.1 L, [place] % (Auto) 6.4, Eos % (Auto) 0.7, [...] Troponin I High Sens 3 12/18/22 16:43: [place] 0.60 Radiography Diagnostic Testing: Radiology Impression Brain [...] limited. Ordering Physician: [place] Wisdom Referring Physician: [facility] Performed By: Kaur Kinsey, [place]IS[place], [...] 40 Minutes Charges/Coding Visit Charges Inpatient E&M: 90847 Subs Hosp L2 12/19/22 1411 <Electronically signed by Laura Li MD> Cosigner Signature (if applicable): CC: ~ Signed [facility] Work Phone: 1(679) 608-923210-30-2023 History and physical note Author [place] Wisdom [facility] December 18, 2022 8:01pm Note Date/Time December 18, 2022 7 :56pm [facility] Medical Records Department [address] [place] [address] H&P Exam - Hospitalist 12/18/221945 MR#: [id number] Acct: [id number] Name: MARION GUTIERREZ Rep #:[id number] : 1995 27 From: Montana Wisdom DO PCP: [facility] St atus:ADM [place]RET [facility] - General General Date of Admission: 12/18/22 Date of Service: 12/18/22 Chief Complaint: Lightheadedness, syncope HPI Narrative MARION GUTIERREZ, is a 27 F who presents [facility] at [facility] with complaints of multiple episodes of [...] I talked to her primary caregiver at [facility] today, she was placed on medication for polycystic ovarian syndrome but her blood sugar went too low and they had to take her off medication. Her serum insulin level was also low according to her primary caregiver at [facility]. The emergency room physician's therapeutic assistant told me today that the patient's caregiver [...] good narrative as to what is happening. [facility] Medical History (Updated 12/18/22 @ 19:31 by [...] 25 mg tablet 25 mg PO DAILY 10/30/23 [History Last Taken 12/17/22] Allergy/AdvReac Type Severity [...] 73.9 H, Lymph % (Auto) 18.1 L, [place] % (Auto) 6.4, Eos % (Auto) 0.7, [...] Troponin I High Sens 3 12/18/22 16:43: [place] 0.[address] 12/18/22 14:38 [...] 40 minutes Charges/Coding Visit Charges Inpatient E&M: 40715 Init Hosp L1 12/18/222000 <Electronically signed by Montana Wisdom DO> Cosigner Signature (if applicable): CC: Dr. Montana Wisdom, ; [facility]~ Signed [facility] Work Phone: 1(324) 461-404810-30-2023 Discharge summary Author Sarah Purdy [facility] December 18, 2022 6:00pm Note Date/Time December 18, 2022 2 :38pm [facility] Medical Records Department [address] [place] [address] Emergency Department Summary 12/18/22 MR#: [id number] Acct: [id number] Name: MARION GUTIERREZ Rep #:[id number] : 1995 27 From: Presley Ibarra [facility] PCP: [facility] St atus:ADM [place]ARRET Location: [place] [address] <Statement entered by Sarah Purdy MD - [...] a headache. 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 [facility] Medical History Anxiety Arthritis Autism Back [...] 73.9 H Lymph % (Auto) 18.1 L [place] % (Auto) 6.4 Eos % (Auto) 0.7 [...] Normal sinus rhythm, rate of 89 bpm, UT 164 ms, QRS duration 80 ms, no [...] TWICE A DAY [facility] Referrals[facility] [Primary Care Provider] - Disposition Disposition: Acute Care Hospital [facility] What to do if you have Problems For any increased pain, shortness of breath, bleeding, nausea or vomiting, chestpain, or any unexpected problems, contact your Primary Care Provider. Call [facility] ([phone]) or report to the closest Emergency Room. Call 911 if necessary. 12/18/22 1649 <Electronically signed by Presley BAZAN> Cosigner Signature (if applicable): 12/18/22 1800 <Electronically signed by Sarah Purdy MD> CC: [facility] ~ Signed [facility] Work Phone: 1(968) 437-455310-21-2023 Discharge summary Author [facility] December 09, 2022 9:52pm Note Date/Time December 09, 2022 8 :06pm [facility] Medical Records Department [address] [place] [address] Emergency Department Summary 12/09/22 MR#: [id number] Acct: [id number] Name: MARION GUTIERREZ Rep #:[id number] : 1995 27 From: Rodolfo Das MD PCP: [facility] St atus:REG ER Location: ED [...] that she complained of headaches as well. [facility] Medical History Anxiety Arthritis Autism Back [...] (Auto) 71.2 H Lymph % (Auto) 20.4 [place] % (Auto) 6.9 Eos % (Auto) 0.7 [...] Sl. Cloudy Urine pH 6.0 Ur Specific [place] 1.025 Urine Protein 30 H Urine Glucose [...] TWICE A DAY [facility] Referrals: [facility] [Primary Care Provider] - 3-5 Days if not improving Activity Restrictions/Additional Instructions: Continue your Reglan as needed. Small amounts of water to keep yourself hydrated. Disposition Disposition: Home, Self Care What to do if you have Problems For any increased pain, shortness of breath, bleeding, nausea or vomiting, chestpain, or any unexpected problems, contact your Primary Care Provider. Call [facility] ([phone]) or report to the closest Emergency Room. Call 911 if necessary. 12/09/22 772 <Electronically signed by Rodlofo Das MD> Cosigner Signature (if applicable): CC: [facility] ~ [facility] Work Phone: 1(486) 686-562008-15-2023 NotePap Smear Specimen AdequacyAugust 2022 10:31amComment.Satisfactory for evaluation. No endocervical component is identified.[facility] A#[id number] Health [facility] on above:Satisfactory for evaluation. No endocervical component is identified. 10-03-2022 NotePap Smear Specimen AdequacyAugust 2022 10:31amComment. Satisfactory for evaluation. No endocervical component is identified.[facility] A#[id number] HospitalComcorewell health [facility] on above:Satisfactory for evaluation. No endocervical component is identified.10-03-2022 NotePap Smear Specimen AdequacyAugust 2022 10:31amComment.Satisfactory for evaluation. No endocervical component is identified.[facility] A#[id number] HospitalComcorewell health [facility] on above:Satisfactory for evaluation. No endocervical component is identified.10-03-2022 NotePap Smear Specimen AdequacyAugust 2022 10:31amComment.Satisfactory for evaluation. No endocervical component is identified.[facility] A#[id number] HospitalComcorewell health [facility] on above:Satisfactory for evaluation. No endocervical component is identified. 10-03-2022 NotePap Smear Specimen AdequacyAugust 2022 10:31amComment. Satisfactory for evaluation. No endocervical component is identified.[facility] A#[id number] HospitalComcorewell health [facility] on above:Satisfactory for evaluation. No endocervical component is identified.10-03-2022 NotePap Smear Specimen AdequacyAugust 2022 10:31amComment.Satisfactory for evaluation. No endocervical component is identified.[facility] A#[id number] Health [facility] on above:Satisfactory for evaluation. No endocervical component is identified.08-15-[address] Etienne [facility] August 15, 2022 10:11pm Note Date/Time August 15, 2022 8:19 pm [facility] Medical Records Department [address] [place] [address] Emergency Department Summary 08/15/22 MR#: [id number] Acct: [id number] Name: MARION GUTIERREZ Rep #:[id number] : 1995 26 From: David Etienne DO [facility] atus:REG ER Location: ED HPI HPI - GI History of Present Illness Chief Complaint: Abd Pain Narrative Narrative: 26-year-old female with history of IBS-D, gastroparesis, morbid obesity, bipolardisorder presenting with nausea, vomiting, diarrhea. She states been going on since she had her endoscopy, Friend a week ago. She states called the [...] unremarkable. Urinalysis negative for infection. hCG negative. [place] level is normal. Patient feeling better on [...] % (Auto) 59.6 Lymph % (Auto) 28.3 [place] % (Auto) 9.2 Eos % (Auto) 1.8 [...] Sl. Cloudy Urine pH 6.0 Ur Specific [place] 1.020 Urine Protein 15 H Urine Glucose (UA) Normal Urine Ketones Negative Urine Occult Blood Negative Urine Nitrite Negative Urine Bilirubin Negative Urine Urobilinogen Normal Ur Leukocyte Esterase 25 H Urine RBC 0 SEEN Urine WBC 0-5 SEEN Ur Squamous Epith Cells 0-5 SEEN Urine Bacteria 1+ Urine Mucus 0 SEEN [place] 08/15/22 08/15/22 19:57 19:57 WBC RBC Hgb Hct MCV MCH MCHC RDW Std Deviation RDW Coeff of Delmy Plt Count MPV Immature Gran % (Auto) Neut % (Auto) Lymph % (Auto) [place] % (Auto) Eos % (Auto) Baso % [...] Color Urine Clarity Urine pH Ur Specific [place] Urine Protein Urine Glucose (UA) Urine Ketones Urine Occult Blood Urine Nitrite Urine Bilirubin Urine Urobilinogen Ur Leukocyte Esterase Urine RBC Urine WBC Ur Squamous Epith Cells Urine Bacteria Urine Mucus [place] 0.60 Discharge Plan Triage Chief Complaint: Abd [...] pain) Qty: 60 1RF [facility] Referrals: [facility] Kelsy [Primary Care Provider] - Disposition Disposition: Home, Self Care What to do if you have Problems For any increased pain, shortness of breath, bleeding, nausea or vomiting, chestpain, or any unexpected problems, contact your Primary Care Provider. Call [facility] ([phone]) or report to the closest Emergency Room. Call 911 if necessary. 08/15/222210 <Electronically signed by David Etienne DO> Cosigner Signature (if applicable): CC: [facility] ~ Signed [facility] Work Phone: 1(320) 207-195106-20-2023 [facility] 08-08-2022 [facility]23 Procedure note [facility]06-[facility]-2023 [facility] 12-12-2021 History of Present illness Narrative* Lincoln Balderas MD - 12/12/2021 4:42 PM EDT Patient [...] Continue OTC analgesia. Follow up with dentist. Lincoln Balderas MD documented in this encounterSouth[facility]07-16-2022 History of Present illness Narrative* Lincoln Balderas MD - 09/03/2021 10:42 AM EDT [facility] Care Triage Note: Patient presents to the [facility] care with complaint of nausea, vomiting, and dizziness. She has been unable to eat for the last 5 days and has been unable to drink since yesterday. Patient is alert, flat affect, sitting in a wheelchair, and accompanied by her mother. ER treatment recommended for dehydration. documented in this encounterSouthview Medical Center10-26-2021 Hospital Discharge instructions Patient Education [...] the uterine lining, diabetes, and heart disease. 1905-[address] [employer] [place], [place] [address]. All rights reserved. This information is not [...] month. 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 If you have heavy bleeding [...] or shortness of breath Dizziness or fainting 9204-6956 [employer]. [address] [place] [address]. All rights reserved. This information is not intended as a substitute for professional medical care. Always follow yourhealthcare professional's instructions. Follow Up Care 12/14/2020 18:23:00 With:[facility] Address: [address] [place] [address]- When:1-2 days [facility] 11-18-2020 History of Present illness Narrative* Therese [...] 07, 2020 9:03 AM documented in this encounterSouthview Medical CenterDischar summary Author Ozzy Bright [facility] November 23, 2022 12:33am Note Date/Time November 23, 2022 12 :05am [facility] Medical Records Department [address] [facility] [place] [address] Emergency Department Summary 11/23/22 MR#: [id number] Acct: [id number] Name: MARION GUTIERREZ Rep #:[id number] : 1995 27 From: Ozzy Angel PCP: [facility] St atus:REG ER Location: ED [...] vision when her blood sugar was low. [facility] Medical History Anxiety Arthritis Autism Back [...] TWICE A DAY [facility]: [facility] [[facility] Care Provider] - 3-5 Days Activity Restrictions/Additional Instructions: Call your primary care physician tomorrow for further instructions on your Victoza. Disposition Disposition: Home, Self Care What to do if you have Problems For any increased pain, shortness of breath, bleeding, nausea or vomiting, chestpain, or any unexpected problems, contact your Primary Care Provider. Call [facility] ([phone]) or report to the closest Emergency Room. Call 911 if necessary. 11/23/22 0033 <Electronically signed by Ozzy Bright DO> Cosigner Signature (if applicable): CC: [facility] ~ Signed [facility] Work Phone: Discharge summary Author Stan Lin [facility] Note Date/Time May 15, 2024 12: 13am [facility] Medical Records Department [address] [place] [address] Emergency Department Summary 05/15/24 MR#: [id number] Acct: [id number] Name: MARION GUTIERREZ Rep #:[id number] : 1995 28 From: Stan Lin DO PCP: REED Sotomayor, [facility] Statu s:REG ER Location: ED HPI History [...] evaluation management. Patient denies any sick contacts [facility] Medical History Alcohol use Picking own [...] 441 mg/1.6 441 mg IM .COMPLEX me ntal health 12/18/22 10/23/23 History mL suspension, ext.rel. [...] following commands and that she was at [facility] year is 2024. NIH of 0 [...] % (Auto) 58.9 Lymph % (Auto) 31.2 [place] % (Auto) 9.0 Eos % (Auto) 0.4 [...] 21:00 IMPRESSION: No Acute Findings. Reading Location: [facility] Discharge Plan Triage Chief Complaint: Chest [...] Naina Da Silva Referrals: Naina Da Silva, [facility] [Primary Care Provider] - Activity Restrictions/Additional Instructions: Follow with your primary care physician outpatient setting. Return with worsening symptoms or concerns. Chest x-ray is normal and your blood work was normal. Use your Reglan that you have at home for nausea and vomiting. Print Language: Bolivian Disposition Disposition: Home, Self Care What to do if you have Problems For any increased pain, shortness of breath, bleeding, nausea or vomiting, chestpain, or any unexpected problems, contact your Primary Care Provider. Call [facility] ([phone]) or report to the closest Emergency Room. Call 911 if necessary. 05/15/24 0013 <Electronically signed by Stan Lin DO> Cosigner Signature (if applicable): CC: REED [facility] Naina Da Silva ~ Signed [facility] Work Phone: Discharge summary Author Jaylon Galicia [facility] Note Date/Time June 03, 2024 1:0 3pm [facility] Medical Records Department [address] [place] [address] Emergency Department Summary 06/03/24 MR#: [id number] Acct: [id number] Name: MARION GUTIERREZ Rep #:[id number] : 1995 28 From: Jaylon Galicia MD PCP: Karuna Lim [facility] Status:REG ER Location: ED HPI History of Present Illness Chief Complaint: Neuro S/Sx Informant: patient and parent Narrative Narrative: 28-year-old female presents saying she been having a migraine for 1 week odwodycbhts-zaf-kwvhsqn medications that are not helping, she gets [...] has had some jaw discomfort at times. [facility] Medical History Alcohol use Picking own [...] lauroxil 441 mg/1.6 441 mg IM .COMPLEX [facility] 12/18/22 10/23/23 History mL suspension, ext.rel. 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 Additional description as above. Reading Location: [facility] Head/Neck CTA 06/03/24 08:57 IMPRESSION: 1. No [...] 3. Additional description as above. Reading Location: [facility] Rhythm Strip Rhythm Strip: Sinus Rhythm Rate: [...] PO QDAY Primary Care Provider: Karuna Lim [facility] Referrals: Karuna Lim, [facility] [Primary Care Provider] - As soon as possible Print Language: Bolivian Disposition Disposition: Home, Self Care What to do if you have Problems For any increased pain, shortness of breath, bleeding, nausea or vomiting, chestpain, or any unexpected problems, contact your Primary Care Provider. Call [facility] ([phone]) or report to the closest Emergency Room. Call 911 if necessary. 06/03/24 1303 <Electronically signed by Jaylon Galicia MD> Cosigner Signature (if applicable): CC: Karuna MCBRIDE [facility] Carina ~ Signed [facility] Work Phone: Evaluation + Plan note No data available for this section [facility] Evaluation noteNo assessment information available [facility] Work Phone: Evaluation note* Diagnosis Onset Date Resolution Status Dysmenorrhea acute Hirsutism acute Oligomenorrhea acute Hypertension chronic Encounter for routine gynecological examination noneactive [facility] Work Phone: Evaluation note* Diagnosis Nausea and vomiting, unspecified vomiting type- Primary Dizziness Dizziness and giddiness [facility] Onset Date Resolution Status Dysmenorrhea acute Hirsutism acute Oligomenorrhea acute Hypertension chronic Encounter for routine gynecological examination noneactive Dysmenorrhea acute Hirsutism acute Oligomenorrhea acute [facility] Work Phone: Evaluation note* Diagnosis Dental infection- Primary Acute apical periodontitis of pulpal origin [facility] Onset Date Resolution Status Dysmenorrhea acute Hirsutism acute Oligomenorrhea acute [facility] Work Phone: Evaluation note* Diagnosis Onset Date Resolution Status Nausea vomiting and diarrhea chronic [facility] Work Phone: Evaluation note* Diagnosis Onset Date Resolution Status Nausea vomiting and diarrhea chronic Oligomenorrhea acute Vaginitis noneactive [facility] Work Phone: Evaluation note* Diagnosis Onset Date Resolution Status Gastroparesis chronic Nausea vomiting and diarrhea [facility] Work Phone: Evaluation note* Diagnosis Onset Date Resolution Status Crohn's disease acute Gastroparesis chronic Nausea vomiting and diarrhea chronic Dysmenorrhea acute Hirsutism acute Oligomenorrhea acute Encounter for routine gynecological examination noneactive Hydradenitis noneactive [facility] Work Phone: Evaluation note* Diagnosis Onset Date Resolution Status Crohn's disease acute Gastroparesis chronic Nausea vomiting and diarrhea chronic Dysmenorrhea acute Hirsutism acute Oligomenorrhea acute Encounter for routine gynecological examination noneactive Hydradenitis noneactive Cellulitis acute Syncope acute [facility] Work Phone: Evaluation note* Diagnosis Onset Date Resolution Status Syncope resolved Crohn's disease chronic Fatty liver chronic Gastroparesis chronic Nausea vomiting and diarrhea [facility] Work Phone: Evaluation note* Diagnosis Onset Date Resolution Status Syncope resolved Crohn's disease chronic Fatty liver chronic Gastroparesis chronic Nausea vomiting and diarrhea chronic Bipolar 1 disorder chronic Diabetes chronic Obesity [facility] Work Phone: Evaluation note* Diagnosis Onset Date Resolution Status Crohn's disease chronic Fatty liver chronic Gastroparesis chronic Nausea vomiting and diarrhea chronic Bipolar 1 disorder chronic Diabetes chronic Obesity [facility] Work Phone: Evaluation note* Diagnosis Dizziness- Primary Dizziness and giddiness Headache, unspecified headache type [facility] Diagnosis Onset Date Resolution Status Bipolar 1 disorder chronic Diabetes chronic Obesity [facility] Work Phone: Evaluation note* Diagnosis Impacted cerumen of left ear- Primary Impacted cerumen [facility] Diagnosis PCOS (polycystic ovarian syndrome)- Primary Polycystic ovaries Obesity, Class III, BMI 40-49.9 (morbid obesity) (HCC) Morbid obesity [facility] Diagnosis Pain- Primary Generalized pain [facility] Diagnosis Foot pain, left Pain in limb Sprain of ligament of left ankle, initial encounter [facility] Diagnosis Chronic migraine without aura, intractable, without status migrainosus (CMS/HCC) documented in this encounter [facility]* Diagnosis Morbid obesity with BMI of 45.0-49.9, adult (CMS/HCC)- Primary Chronic migraine without aura, intractable, without status migrainosus (CMS/HCC) [facility] Diagnosis PCOS (polycystic ovarian syndrome)- Primary Polycystic ovaries Obesity, Class III, BMI 40-49.9 (morbid obesity) (HCC) Morbid obesity [facility]* Diagnosis Sore throat- Primary Acute pharyngitis URI, acute Acute upper respiratory infections of unspecified site [facility]* Diagnosis Acute otitis media, left- Primary Unspecified otitis media Acute otitis externa of left ear, unspecified type [facility]* Diagnosis PCOS (polycystic ovarian syndrome)- Primary Polycystic ovaries Obesity, Class III, BMI 40-49.9 (morbid obesity) ([facility]) Morbid obesity [facility]* Diagnosis Influenza-like illness- Primary Influenza with other respiratory manifestations [facility] Diagnosis Obesity, Class III, BMI 40-49.9 (morbid obesity) ([facility])- Primary Morbid obesity PCOS (polycystic ovarian syndrome) Polycystic ovaries [facility]* Diagnosis Obesity, Class III, BMI 40-49.9 (morbid obesity) ([facility])- Primary Morbid obesity Type 2 diabetes mellitus with other specified complication, without long-term current use of insulin ([facility]) Primary hypertension Unspecified essential hypertension Binge eating disorder, moderate Hypercholesterolemia Pure hypercholesterolemia Gastroparesis Steatosis of liver Other chronic nonalcoholic liver disease 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, requiring support (level 1) ([facility]) PCOS (polycystic ovarian syndrome) Polycystic ovaries Irritable bowel syndrome with diarrhea Irritable bowel syndrome Bipolar affective disorder, remission status unspecified ([facility]) Palpitations Hirsutism History of suicidal ideation Personal history of other mental disorder [facility]* Diagnosis Bipolar affective disorder, currently depressed, mild ([facility])- Primary Bipolar I disorder, most recent episode (or current) depressed, mild Obesity, Class III, BMI 40-49.9 (morbid obesity) ([facility]) Morbid obesity Binge eating disorder, moderate Generalized anxiety disorder [facility] PCOS (polycystic ovarian syndrome) Polycystic ovaries Obesity, Class III, BMI 40-49.9 (morbid obesity) Morbid obesity [facility] Diagnosis PCOS (polycystic ovarian syndrome) [E28.2]- Primary Polycystic ovaries [facility] Diagnosis Obesity, Class III, BMI 40-49.9 (morbid obesity) (HCC)- Primary Morbid obesity Binge eating disorder, moderate Bipolar affective disorder, currently depressed, mild (HCC) Bipolar I disorder, most recent episode (or current) depressed, mild Generalized anxiety disorder [facility] Diagnosis Obesity, Class III, BMI 40-49.9 (morbid obesity) (HCC) Morbid obesity Type 2 diabetes mellitus with other specified complication, without long-term current use of insulin (HCC) Palpitations [facility] Author Andreas Oliva [facility] August 08, 2022 2:27pm Note Date/Time August 08, 2022 2:27 pm [facility] Medical Records Department [address] [place] [id number] History & Physical Exam 08/08/22 1426 MR#: [id number] Acct: [id number] Name: MARION GUTIERREZ Rep #:[id number] : 1995 26 From: Andreas Oliva DO PCP: [facility] atus:[facility] Location: [place] [address] History and Physical Date of Admission: 08/08/22 MARION GUTIERREZ, is a 26 F who presents to the office today for PMH autism, bipolar type 1, PCOS [facility] ED on multiple occasions over the years with N/V, headache, diarrhea, CP. Stool studies for infection have been performed throughout the years with calprotectin, C.Difficile, EP, O/P WNL each time. CT abd/pel 1.14.16?abd pain/diarrhea mild hepatomegaly, homogeneous; splenomegaly; multiple fluid-filled small bowel loops; diverticulosis. Stool 9..16?lactoferrin + US RUQ 2.16.16?abd pain hepatomegaly 18.7cm with fatty infiltration. HIDA 4.24.17?EF 88%. When compared to 2.16.16 scan there is continued evidence of duodenal-gastric reflux. GI and hepatology specialists established in 2018 with diarrhea, bloating, abd pain, N/V and diagnosed with IBS-D and GERD. ?[facility] Celiac 12.12.17?without positive findings. EGD 01.03.18?advanced to small bowel noting bile in stomach and mild gastritis. No pathologic changes. US 5.?hepatic measurement 18cm with increased echogenicity. ?EGD 09.08.20?advanced to small bowel noting gastritis, mild. Remaining exam without acute/chronic finding. H.Pylori -. ?Colonoscopy 10.08.20?advanced to TI noting internal hemorrhoids without visual abnormality. Without pathologic changes. [facility] ED visits continue as noted above. US RUQ 10..21?abd pain hepatomegaly 19cm with fatty infiltration. US ABD 11.30.21?abd pain hepatomegaly 20.2cm with fatty infiltration; splenomegaly. No ascites. Biochemical workup ?T3, T4, CBC, CMP, TIBC, iron, ferritin, copper, zinc,selenium without pertinent abnormality. ? TSH H4.91 [facility] ED visit prompting referral 01.24.22 with diffuse [...] TSH H4.77; T4WNL. *BGI established 02.15.22 following [facility] ED presentation. Marion has had multipleED visits. [...] Exam Const General: cooperative Nutritional Appearance: obese [facility] Head: normal to inspection Ears: TM's normal bilaterally Nose: external nose normal Face and sinus: normal facial exam Mouth: oral mucosae normal Throat: posterior oropharynx normal Neck Lymphatic: no lymphadenopathy noted Resp Effort & Inspection: normal respiratory effort Auscultation: Bilateral: Clear to Auscultation Cardio Rate: regular rate Rhythm: regular rhythm Quality Reporting Tobacco Screening ([facility] 138) Smoking Status: Never smoker Assessment and [...] na usea and vomiting ? ? Discontinued wudlmp-pqfqpjwk-qjnncjn 40,000-126,000- 168,000 unit (Zenpep) ?? take three capsules with meals ?? Discontinued Reason:? Order Completed 3 caps? PO TID 189 caps 0RF MARION GUTIERREZ, is a 26 F who presents to the office today for PMH autism, bipolar type 1, PCOS [facility] ED on multiple occasions over the years with N/V, headache, diarrhea, CP. Stool studies for infection have been performed throughout the years with calprotectin, C.Difficile, EP, O/P WNL each time. CT abd/pel 03.04.16?abd pain/diarrhea mild hepatomegaly, homogeneous; splenomegaly; multiple fluid-filled small bowel loops; diverticulosis. Stool 11.10.16?lactoferrin + US RUQ 2.16.16?abd pain hepatomegaly 18.7cm with fatty infiltration. HIDA 06.12.17?EF 88%. When compared to 04.06.15 scan there [...] hemorrhoids without visual abnormality. Without pathologic changes. [facility] ED visits continue as noted above. US RUQ 10.8.21?abd pain hepatomegaly 19cm with fatty infiltration. US ABD 11.30.21?abd pain hepatomegaly 20.2cm with fatty infiltration; splenomegaly. No ascites. Biochemical workup ?T3, T4, CBC, CMP, TIBC, iron, ferritin, copper, zinc,selenium without pertinent abnormality. ? TSH H4.91 [facility] ED visit prompting referral 01.24.22 with diffuse [...] TSH H4.77; T4WNL. *BGI established 02.15.22 following [facility] ED presentation. Marion has had multipleED visits. [...] unable to be calculated. Contact with results; samuel Ponce and dora OV 06.06.22 She continues to have difficulty [...] Rhythm: regular rhythm Quality Reporting Tobacco Screening ([facility] 138) Smoking Status: Never smoker Assessment and [...] na usea and vomiting ? ? Discontinued xtgbal-sfewiqfp-hhgyhkf 40,000-126,000- 168,000 unit (Zenpep) ?? take three capsules with meals ?? Discontinued Reason:? Order Completed 3 caps? PO TID 189 caps 0RF I have examined the patient and the H&P has been reviewed. There are no clinicalchanges since date of exam. 08/08/22 1427 <Electronically signed by Andreas Oliva DO> Cosigner Signature (if applicable): CC: Andreas Oliva DO; [facility]~ Signed [facility] Work Phone: Hospital Discharge instructions Additional Instructions Your CT showed some colitis on the right which is consistent with your pain. Please follow-up with your GI doctor. You been placed on a course of antibiotics.[facility] Work Phone: Hospital Discharge instructions Additional Instructions Call your primary care physician tomorrow for further instructions on your Victoza.[facility] Work Phone: Hospital Discharge instructions Additional Instructions Continue your Reglan as needed. Small amounts of water to keep yourself hydrated.[facility] Work Phone: Hospital Discharge instructions Additional Instructions Today you had a negative cardiac workup. Please continue to follow-up outpatient. Negative chest x-ray, troponin, D-dimer. Please [facility] any [facility] Work Phone: Hospital Discharge instructions Additional Instructions Follow-up your doctor in outpatient setting. Return with worsening symptoms or concerns. Your CT today did not show anything surgical. Use the prescriptions are sent to your pharmacy as prescribed.[facility] Work Phone: Hospital Discharge instructions Additional Instructions Follow with your primary care physician outpatient setting. Return with worsening symptoms or concerns. Chest x-ray is normal and your blood work was normal. Use your Reglan that you have at home for nausea and vomiting.[facility] Work Phone: Hospital Discharge instructionsAdditional Instructions Your workup today showed no obvious cause for your passing out event. This could be due to the medications you are taking. However you should follow-up with your family doctor to discuss Holter monitor testing to rule out abnormal cardiac rhythm and/or cardiology referral to discuss need for echo and tilt table testing to further assess the cause of your event. Please return to the ER should you have any further [facility] Work Phone: Reason for referral (narrative)No reason for referral information availableWGreen Cross Hospital Work Phone: Summary Purpose Family History [...] No January 18 021 9:17pm Power of Head Of Marketing Analytics No January 18, 2021 9:17pm Advance Directive Response Recorded Date/ Time Living Will No August 16, 2021 8:30pm Power of Head Of [employer] No August 16 8:30pm Advance Directive Response Recorded Date/ Time Living Will No August 29, 2021 8:19pm Power of Head Of [employer] No August 29 8:19pm Advance Directive Response Recorded Date/ Time Living Will No September 03, 2021 11:58am Power of Head Of [employer] No September 03 11:58am Advance Directive Response Recorded Date/ Time Living Will No September 10, 2021 2:46am Power of Head Of [employer] No September 10 2:46am Advance Directive Response Recorded Date/ Time Living Will No January 24 8:04pm Power of Head Of [employer] No January 24, 2022 8:04pm Advance Directive Response Recorded Date/ Time Living Will No August 04, 2022 10:54am Power of Head Of [employer] No August 04 10:54am Advance Directive Response Recorded Date/ Time Living Will No August 15, 2022 7:13pm Power of Head Of [employer] No August 15 3 7:13pm Advance Directive Response Recorded Date/ Time Living Will No November 22 9:47pm Power of Head Of [employer] No October 4th, 2 023 9:47pm Advance Directive Response Recorded Date/ Time Living Will No December 09 8:10pm Power of [employer] Of [employer] No December 09, 2022 8:10pm Advance Directive Response Recorded Date/ Time Living Will No December 18 5:01pm Power of [employer] Of [employer] No December 18, 2022 5:01pm Advance Directive Response Recorded Date/ Time Living Will No December 18 7:24pm Power of [employer] Of [employer] No December 18, 2022 7:24pm Advance Directive Response Recorded Date/ Time Living Will No December 18 6:24pm Power of [employer] Of [employer] No December 18, 2022 6:24pm Advance Directive Response Recorded Date/ Time Living Will No April 07 024 4:17pm Power of [employer] Of [employer] No April 07, 2023 4:17pm Advance Directive Response Recorded Date/ Time Living Will No May 08, 2023 2:47pm Power of [employer] Of [employer] No May 07 2:47pm Advance Directive Response Recorded Date/ Time Living Will No June 03, 2023 8:45pm Power of [employer] Of [employer] No June 02 8:45pm Advance Directive Response Recorded Date/ Time Living Will No November 26 10:03pm Power of [employer] No November 26 024 10:03pm Advance Directive Response Recorded Date/ Time Living Will No November 26 10:03pm Do you have a Healthcare Power of Head Of [employer]? No November 27, 2023 10:03pm Living Will No May 08, 2024 3:41pm Do you have a Healthcare Power of Head Of Marketing [employer]? No May 08, 2024 3:41pm Advance Directive Response Recorded Date/ Time Living Will No May 08, 2024 3:41pm Do you have a Healthcare Power of Head Of Marketing [employer]? No May 08, 2024 3:41pm Living Will No May 14, 2024 10:34pm Do you have a Healthcare Power of Head Of Marketing [employer]? No May 14, 2024 10:34pm Advance Directive Response Recorded Date/ Time Living Will No May 08, 2024 3:41pm Do you have a Healthcare Power of Head Of Marketing [employer]? No May 08, 2024 3:41pm Living Will No May 14, 2024 10:34pm Do you have a Healthcare Power of Head Of Marketing [employer]? No May 14, 2024 10:34pm Living Will No June 03, 2024 8:41am Do you have a Healthcare Power of Head Of Marketing [employer]? No June 03, 2024 8:41am Advance Directive Response Recorded Date/ Time Living Will No July 10, 2023 9 :36am Do you have a Healthcare Power of Head Of Marketing [employer]? No July 10, 2023 9:36am Living Will No May 08, 2024 3:41pm Do you have a Healthcare Power of Head Of Marketing [employer]? No May 08, 2024 3:41pm Living Will No May 14, 2024 10:34pm Do you have a Healthcare Power of Head Of [employer]? No May 14, 2024 10:34pm Living Will No June 03, 2024 8:41am Do you have a Healthcare Power of Head Of [employer]? No June 03, 2024 8:41am Advance Directive Response Recorded Date/ Time Living Will No July 10, 2023 9 :36am Do you have a Healthcare Power of Head Of [employer]? No July 10, 2023 9:36am Living Will No May 08, 2024 3:41pm Do you have a Healthcare Power of Head Of Marketing [employer]? No May 08, 2024 3:41pm Living Will No May 14, 2024 10:34pm Do you have a Healthcare Power of Head Of Marketing [employer]? No May 14, 2024 10:34pm Do you have a Healthcare Power of Head Of [employer]? No September 04, 2024 9:13pm Living Will No June 03, 2024 8:41am Do you have a Healthcare Power of Head Of [employer]? No June 03, 2024 8:41am Advance Directive Response Recorded Date/ Time Living Will No July 10, 2023 9 :36am Do you have a Healthcare Power of Head Of [employer]? No July 10, 2023 9:36am Living Will No May 14, 2024 10:34pm Do you have a Healthcare Power of Head Of [employer]? No May 14, 2024 10:34pm Do you have a Healthcare Power of Head Of [employer]? No September 04, 2024 9:13pm Living Will No June 03, 2024 8:41am Do you have a Healthcare Power of Head Of [employer]? 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 Reason for Visit Dysmenorrhea Hirsutism Oligomenorrhea Hypertension Encounter for routine gynecological examination Chief Complaint 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 NAUEA/VOMITING Reason for Visit Dysmenorrhea Hirsutism Oligomenorrhea Hypertension Encounter for routine gynecological examination Chief Complaint 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 NAUEA/VOMITING SI Reason for Visit Dysmenorrhea Hirsutism Oligomenorrhea Hypertension Encounter for routine gynecological examination Chief Complaint 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 NAUEA/VOMITING SI pap exam, med [...] PAIN 2 WK FU CROHN'S DISEASE 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) CHRONIC MIGRAINE Reason for Visit Crohn's disease Gastroparesis Nausea vomiting and diarrhea Dysmenorrhea Hirsutism Oligomenorrhea Encounter for routine gynecological examination Hydradenitis Chief Complaint ABD PAIN 2 WK FU CROHN'S DISEASE 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) CHRONIC MIGRAINE HYPOGLYCEMIA Reason for Visit Crohn's disease Gastroparesis Nausea vomiting and diarrhea Dysmenorrhea Hirsutism Oligomenorrhea Encounter for routine gynecological examination Hydradenitis Chief Complaint ABD PAIN 2 WK FU CROHN'S DISEASE 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) CHRONIC MIGRAINE HYPOGLYCEMIA N/V/D, SYNCOPE, HYPOTENSION Reason for Visit Crohn's disease Gastroparesis Nausea vomiting and diarrhea Dysmenorrhea Hirsutism Oligomenorrhea Encounter for routine gynecological examination Hydradenitis Chief Complaint 2 WK FU CROHN'S DISEASE 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) CHRONIC MIGRAINE HYPOGLYCEMIA N/V/D, SYNCOPE, HYPOTENSION Reason for Visit Crohn's disease Gastroparesis Nausea vomiting and diarrhea Dysmenorrhea Hirsutism Oligomenorrhea Encounter for routine gynecological examination Hydradenitis Chief Complaint 2 WK FU CROHN'S DISEASE 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) CHRONIC MIGRAINE HYPOGLYCEMIA N/V/D, SYNCOPE, HYPOTENSION SYNCOPE Reason for Visit Crohn's disease Gastroparesis Nausea vomiting and diarrhea Dysmenorrhea Hirsutism Oligomenorrhea Encounter for routine gynecological examination Hydradenitis Cellulitis Syncope Chief Complaint 2 WK FU CROHN'S DISEASE 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) CHRONIC MIGRAINE HYPOGLYCEMIA N/V/D, SYNCOPE, HYPOTENSION Syncope [...] RT ARM MUCH GREATER THAN LT ARM 2024 9:41am Chief Complaint Admit Date N/V [...] RT ARM MUCH GREATER THAN LT ARM 2024 9:41am 1 Y FU July 08, [...] ON LIVER August 07, 2024 1:11 pm Chief Complaint Admit Date N/V May 08, [...] RT ARM MUCH GREATER THAN LT ARM Mi y 2024 9:41am 1 Y FU July 08, 2024 9:56a m 2 M FU July 24, 2024 1:29p m LESION ON LIVER August 07, 2024 1:11 pm SYNCOPE September 04, 2024 9:13 pm Chief Complaint Admit Date CHEST PAIN May 14, 2024 8:4 6pm 6 M FU May 29, 2024 2:3 2pm HEADACHE June 02, 2024 7:2 5pm RUQ PAIN June 03, 2024 7:1 8am HEADACHE, June 03, 2024 8:3 3am palpitations June 05, 2024 6:3 6am 30 DAY MONITOR June 05, 2024 8:0 0am BP IN RT ARM MUCH GREATER THAN LT ARM Mi y 2024 9:41am 1 Y FU July 08, 2024 9:56a m 2 M FU July 24, 2024 1:29p m LESION ON LIVER August 07, 2024 1:11 pm SYNCOPE September 04, 2024 9:13 pm Reason for Referral Specialty Diagnoses / Procedures Referred By Khalif t Referred To Contact Diagnoses PCOS (polycystic ovarian syndrome) Obesity, Class III, BMI 40-49.9 (morbid obesity) (HCC) Procedures ENDOCRINOLOGY DIETITIAN VISIT (MNT) MEDICAL NUTRITION ASSMT&IVNTJ INDIV EACH 15 MD MEDICAL NUTRITION ASSMT&IVNTJ INDIV EACH 15 MD MEDICAL NUTRITION ASSMT&IVNTJ INDIV EACH 15 MD MEDICAL NUTRITION ASSMT&IVNTJ INDIV EACH 15 MD Jey Johnson MD [address] [place] [address] Referral ID Status Reason Start Date Expiration Date Visits Requested Visits Authorized [id number] Authorized PCP Requested Referral 01/07/2025 1 1 Additional Source Comments INFORMATION SOURCE (unrecogn ized section and content) DATE CREATED AUTHOR 08/14/2017 [facility] DATE CREATED AUTHOR AUTHOR'S ORGANIZ ATION 08/14/2017 [facility] DATE CREATED AUTHOR AUTHOR'S ORGANIZ ATION 02/16/2021 [facility] DATE CREATED AUTHOR AUTHOR'S ORGANIZ ATION 12/19/2022 [facility] ([place]) DATE CREATED AUTHOR AUTHOR'S ORGANIZ ATION 04/18/2023 [facility] DATE CREATED AUTHOR AUTHOR'S ORGANIZ ATION 01/02/2024 [facility] d[facility] Specialists EPIC DATE CREATED AUTHOR AUTHOR'S ORGANIZ ATION 05/17/2024 [facility] DATE CREATED AUTHOR AUTHOR'S ORGANIZ ATION 09/11/2024 [facility] DATE CREATED AUTHOR AUTHOR'S ORGANIZ ATION 09/20/2024 [facility] Goals (unrecognized section and content) Goals may be documented in a n alternate section Source Comments (unrecognize d section and content) In the event this informatio n is protected by the Federal Confidentiality of Alcohol and Drug Abuse Patient Records regulations: The Federal rules restrict any use of the information to criminally investigate or prosecute any alcohol or drug abuse patient.[facility] the event this information is protected by the Federal Confidentiality of Alcohol and Drug Abuse Patient Records regulations: The Federal rules restrict any use of the information to criminally investigate or prosecute any alcohol or drug abuse patient.[facility] Center[facility] the event this information is protected by the Federal Confidentiality of Alcohol and Drug Abuse Patient Records regulations: The Federal rules restrict any use of the information to criminally investigate or prosecute any alcohol or drug abuse patient.[facility] Center[facility] the event this information is protected by the Federal Confidentiality of Alcohol and Drug Abuse Patient Records regulations: The Federal rules restrict any use of the information to criminally investigate or prosecute any alcohol or drug abuse patient.[facility] Center[facility] the event this information is protected by the Federal Confidentiality of Alcohol and Drug Abuse Patient Records regulations: The Federal rules restrict any use of the information to criminally investigate or prosecute any alcohol or drug abuse patient.[facility] Center[facility] the event this information is protected by the Federal Confidentiality of Alcohol and Drug Abuse Patient Records regulations: The Federal rules restrict any use of the information to criminally investigate or prosecute any alcohol or drug abuse patient.[facility] Center[facility] the event this information is protected by the Federal Confidentiality of Alcohol and Drug Abuse Patient Records regulations: The Federal rules restrict any use of the information to criminally investigate or prosecute any alcohol or drug abuse patient.[facility] Center[facility] the event this information is protected by the Federal Confidentiality of Alcohol and Drug Abuse Patient Records regulations: The Federal rules restrict any use of the information to criminally investigate or prosecute any alcohol or drug abuse patient.[facility] Center[facility] the event this information is protected by the Federal Confidentiality of Alcohol and Drug Abuse Patient Records regulations: The Federal rules restrict any use of the information to criminally investigate or prosecute any alcohol or drug abuse patient.[facility] Center[facility] the event this information is protected by the Federal Confidentiality of Alcohol and Drug Abuse Patient Records regulations: The Federal rules restrict any use of the information to criminally investigate or prosecute any alcohol or drug abuse patient.[facility] CenterIn the event this information is protected by the Federal Confidentiality of Alcohol and Drug Abuse Patient Records regulations: The Federal rules restrict any use of the information to criminally investigate or prosecute any alcohol or drug abuse patient.[facility] CenterIn the event this information is protected by the Federal Confidentiality of Alcohol and Drug Abuse Patient Records regulations: The Federal rules restrict any use of the information to criminally investigate or prosecute any alcohol or drug abuse patient.[facility] CenterIn the event this information is protected by the Federal Confidentiality of Alcohol and Drug Abuse Patient Records regulations: The Federal rules restrict any use of the information to criminally investigate or prosecute any alcohol or drug abuse patient.[facility] Center[facility] the event this information is protected by the Federal Confidentiality of Alcohol and Drug Abuse Patient Records regulations: The Federal rules restrict any use of the information to criminally investigate or prosecute any alcohol or drug abuse patient.[facility] CenterIn the event this information is protected by the Federal Confidentiality of Alcohol and Drug Abuse Patient Records regulations: The Federal rules restrict any use of the information to criminally investigate or prosecute any alcohol or drug abuse patient.[facility] CenterIn the event this information is protected by the Federal Confidentiality of Alcohol and Drug Abuse Patient Records regulations: The Federal rules restrict any use of the information to criminally investigate or prosecute any alcohol or drug abuse patient.[facility] CenterIn the event this information is protected by the Federal Confidentiality of Alcohol and Drug Abuse Patient Records regulations: The Federal rules restrict any use of the information to criminally investigate or prosecute any alcohol or drug abuse patient.[facility] CenterIn the event this information is protected by the Federal Confidentiality of Alcohol and Drug Abuse Patient Records regulations: The Federal rules restrict any use of the information to criminally investigate or prosecute any alcohol or drug abuse patient.[facility] CenterIn the event this information is protected by the Federal Confidentiality of Alcohol and Drug Abuse Patient Records regulations: The Federal rules restrict any use of the information to criminally investigate or prosecute any alcohol or drug abuse patient.[facility] CenterIn the event this information is protected by the Federal Confidentiality of Alcohol and Drug Abuse Patient Records regulations: The Federal rules restrict any use of the information to criminally investigate or prosecute any alcohol or drug abuse patient.[facility] CenterIn the event this information is protected by the Federal Confidentiality of Alcohol and Drug Abuse Patient Records regulations: The Federal rules restrict any use of the information to criminally investigate or prosecute any alcohol or drug abuse patient.[facility] CenterIn the event this information is protected by the Federal Confidentiality of Alcohol and Drug Abuse Patient Records regulations: The Federal rules restrict any use of the information to criminally investigate or prosecute any alcohol or drug abuse patient.[facility] CenterIn the event this information is protected by the Federal Confidentiality of Alcohol and Drug Abuse Patient Records regulations: The Federal rules restrict any use of the information to criminally investigate or prosecute any alcohol or drug abuse patient.[facility] CenterIn the event this information is protected by the Federal Confidentiality of Alcohol and Drug Abuse Patient Records regulations: The Federal rules restrict any use of the information to criminally investigate or prosecute any alcohol or drug abuse patient.[facility] Care Teams (unrecognized sec tion and content) Team Status: Active Member Role Status Dates Naina MCBRIDE [employer] Primary Care Provider Activ e Team Status: Inactive Member Role Status Dates Naina MCBRIDE [employer] Primary Care Provider Activ e Start: January 14, 2024 End: January 14, 2024 Naina MCBRIDE [employer] Referring Provider Active Start: January 14, 2024 End: January 14, 2024 Dr. Marco Bartlett MD Attending Provider Active Start: January 14, 2024 End: January 14, 2024 Team Status: Inactive Member Role Status Dates Naina MCBRIDE [employer] Primary Care Provider Activ e Start: February 05, 2024 End: February 05, 2024 Zebulun Beam VSC, [employer] Attending Provider Active Start: February 05, 2024 End: February 05, 2024 Team Status: Inactive Member Role Status Dates Naina Da Silva VSC, [employer] Primary Care Provider Activ e Start: April 22, 2024 End: April 22, 2024 Karuna Lim VSC, [employer] Attending Provider Active Start: April 22, 2024 End: April 22, 2024 Team Status: Active Member Role Status Dates Naina Da Silva VSC, [employer] Primary Care Provider Activ e Start: May 07, 2024 Zebudeb Beam VSC, [employer] Attending Provider Active Start: May 07, 2024 Team Status: Inactive Member Role Status Dates Naina Da Silva VSC, [employer] Primary Care Provider Activ e Start: May 08, 2024 End: May 08, 2024 Dr. Stan Lin DO Referring Provider Active Start: May 08, 2024 End: May 08, 2024 Dr. Stan Lin DO Emergency Provider Active Start: May 08, 2024 End: May 08, 2024 Emergency Medical Dispatcher Relationship Specialty Start Date End Date Crys Obrien PCP - General Family Practice 01/13/19 Ernesto Carter, Family Practice 06/15/16 Emergency Medical Dispatcher Relationship Specialty Start Date End Date Crys Obrien PCP - General Family Medicine 01/13/19 Ernesto Carter, DO Family Medicine 06/15/16 Team Status: Active Member Role Status Dates [facility] Family Provider Active [facility] Primary Care Provider A ctive Team Status: Inactive Member Role Status Dates [facility] Primary Care Provider, Referring Provider Active Dr. Andreas Oliva DO Attending Provider Active Team Status: Inactive Member Role Status Dates [facility] Primary Care Provider, Referring Provider Active Zeus Miller NP, [employer] Attending Provider Active Team Status: Inactive Member Role Status Dates [facility] Primary Care Provider A ctive WILLIAMS GREGORIO Attending Provider, Referring Provider Active Team Status: Inactive Member Role Status Dates [facility] Primary Care Provider A ctive Dr. Clay Causey MD Attending Provider, Referring Provider Active Vani Carlson , [employer] Other Provider Active Karina Guerra [employer], [employer] Other Provider Active Team Status: Inactive Member Role Status [facility] Primary C are Provider, Attending Provider, Referring Provider Active Naina Da Silva [employer], [employer] Other Provider Active Team Status: Inactive Member Role Status [facility] Primary Care Provider A ctive Dr. Martin Pace , DO Attending Provider, Emergency P rovider Active Team Status: Inactive Member Role Status [facility] Primary Care Provider A ctive Dr. Coni Angelo , DO Attending Provider, Emergency P rovider Active Team Status: Inactive Member Role Status [facility] Primary Care Provider A ctive Dr. Andreas Oliva , DO Attending Provider, Referring Provider Active Zeus Miller [employer], [employer] Other Provider Active Team Status: Inactive Member Role Status [facility] Primary Care Provider A ctive Dr. Andreas Oliva , DO Attending Provider, Referring Provider Active Team Status: Active Member Role Status [facility] Primary Care Provider A ctive Dr. Andreas Oliva , DO Attending Provider, Referring Provider Active Team Status: Inactive Member Role Status [facility] Primary Care Provider A ctive Karina Guerra [employer], [employer] Attending Provider, Referring Provider Active Zeus Miller [employer], [employer] Other Provider Active Team Status: Active Member Role Status [facility] Primary Care Provider A ctive Dr. Andreas Oliva , DO Attending Provid er, Referring Provider, Other Provider Active Team Status: Inactive Member Role Status [facility] Primary Care Provider A ctive Dr. David Etienne , DO Emergency Provider Active Team Status: Inactive Member Role Status [facility] Primary Care Provider A ctive Dr. David Etienne , DO Attending Provider, Emergency Provider Active Team Status: Inactive Member Role Status [facility] Primary Care Provider A ctive Dr. Andreas Oliva , Attending Provider, Referring Provider Active Naina Da Silva [employer], [employer] Other Provider Active Team Status: Inactive Member Role Status [facility] Primary Care Provider A ctive Dr. Nolan Lo MD Attending Provider, Referring Provider Active Team Status: Inactive Member Role Status [facility] Primary Care Provider A ctive Zeus Miller [employer], [employer] Attending Provider, Referring Provider Active Team Status: Inactive Member Role Status Dates [facility] Primary Care Provider A ctive Dr. Ozzy Bright DO Emergency Provider Active Team Status: Inactive Member Role Status [facility] Primary Care Provider A ctive Dr. Ozzy Bright DO Attending Provider, Emergency P gerard Active Team Status: Inactive Member Role Status Dates [facility] Primary Care Provider A ctive Rodolfo Das MD Emergency Provider Active Team Status: Inactive Member Role Status [facility] Primary Care Provider A ctive Rodolfo Das MD Attending Provider, Emergency Provid er Active Team Status: Active Member Role Status [facility] Primary Care Provider A ctive Dr. Sarah Purdy MD Emergency Provider Active Dr. [place] Wisdom DO Admit Provider, Attending Pro vider Active Team Status: Active Member Role Status [facility] Primary Care Provider A ctive Dr. Sarah Purdy MD Emergency Provider Active Dr. [place] Wisdom DO Admit Provider, Attending Provider, Other Provider Active Team Status: Active Member Role Status [facility] Primary Care Provider A ctive Dr. Garrick Mcgowan MD Attending Provider Active Team Status: Active Member Role Status [facility] Primary Care Provider A ctive Dr. Sarah Purdy MD Emergency Provider Active Dr. [place] Wisdom DO Admit Provider, Other Provide r Active Dr. Laura Li MD Attending Provider, Other Provid er Active Team Status: Inactive Member Role Status [facility] Primary Care Provider A ctive Dr. Sarah Purdy MD Emergency Provider Active Dr. [place] Wisdom DO Admit Provider, Other Provide r Active Dr. Laura Li MD Attending Provider Active Team Status: Active Member Role Status [facility] Family Provider Active Naina Da Silva [employer], [employer] Primary Care Provider Active Team Status: Inactive Member Role Status Dates Naina Da Silva [employer], [employer] Primary Care Provider Active Dr. Laura Li MD Attending Provider, Referring Pr tanvi Active Team Status: Inactive Member Role Status Dates Naina Da Silva [employer], [employer] Primary Care Provider Active Dr. Andreas Oliva DO Attending Provider, Referring Provider Active Team Status: Inactive Member Role Status Dates [facility] Referring Provider Acti ve Dr. Hubert Mo MD Attending Provider Active Naina Da Silva [employer], [employer] Primary Care Provider Active Team Status: Inactive Member Role Status Dates Naina Da Silva [employer], [employer] Primary Care Provider Active Dr. Bridger Kamara DO Emergency Provider Active Team Status: Inactive Member Role Status Dates Naina Da Silva [employer], [employer] Primary Care Provider Active Dr. Bridger Kamara DO Attending Provider, Emergency P gerard Active Team Status: Inactive Member Role Status Dates aNina Da Silva [employer], [employer] Primary Care Provider Active Dr. Sarah Purdy MD Emergency Provider Active Emergency Medical Dispatcher Relationship Specialty Start Date End Date Clinic, [facility] [address] [place] [address] PCP - General 05/08/23 Ernesto Carter DO Family [facility] 06/15/16 Team Status: Inactive Member Role Status Dates Naina Da Silva [employer], [employer] Primary Care Provider Active Dr. Sarah Purdy MD Attending Provider, Emergency Provider Active Team Status: Inactive Member Role Status Dates Naina Da Silva [employer], [employer] Primary Care Provider Active Rodolfo Das MD Emergency Provider Active Emergency Medical Dispatcher Relationship Specialty Start Date End Date [facility], [place] [facility] PCP - General 05/08/23 Ernesto Carter DO Family Medicine 06/15/16 Naina Da Silva NP [address] [place] [address] Referring Family Medicine 09/05/23 Emergency Medical Dispatcher Relationship Specialty Start Date End Date [facility], [place] [facility] PCP - General 05/08/23 Ernesto Carter DO Family Medicine 06/15/16 Naina Da Silva NP [address] [place] [address] Referring Family Medicine 09/05/23 Emergency Medical Dispatcher Relationship Specialty Start Date End Date [facility] PCP - General 05/08/23 Ernesto Carter DO Family Medicine 06/15/16 Naina Da Silva NP [address] [place] [address] Referring Family Medicine 09/05/23 Emergency Medical Dispatcher Relationship Specialty Start Date End Date Crys Obrien [employer]ATER [employer] TECHNICAL OFFICER PCP - General Family Medicine 01/13/19 05/07/23 Ernesto Carter, DO Family Medicine 06/15/16 Emergency Medical Dispatcher Relationship Specialty Start Date End Date Unallocated, Ngozi Mays MD [address] [place] [address] PCP - General 07/31/22 Alisson Lake NP [address] [place] [address] PCP - [facility] 08/20/23 Emergency Medical Dispatcher Relationship Specialty Start Date End Date Unallocated, [place] [address] PCP - General 07/31/22 Alisson Lake NP [address] [facility] [place] [address] PCP - [facility] 08/20/23 Emergency Medical Dispatcher Relationship Specialty Start Date End Date Unallocated, Noms Provider, [address] [place] [address] PCP - General 07/31/22 Alisson Lake [employer] [address] [place] [address] PCP - [facility] 08/20/23 Emergency Medical Dispatcher Relationship Specialty Start Date End Date [facility], [facility] PCP - General 05/08/23 Ernesto Carter DO Family Medicine 06/15/16 Naina Da Silva NP [address] [place] [address] Referring Family Medicine 09/05/23 Emergency Medical Dispatcher Relationship Specialty Start Date End Date [facility], [facility] PCP - General 05/08/23 Ernesto Carter, Family Medicine 06/15/16 Naina Da Silva NP [address] [place] [address] Referring Family Medicine 09/05/23 Emergency Medical Dispatcher Relationship Specialty Start Date End Date [facility], [facility] PCP - General 05/08/23 Ernesto Carter DO Family Medicine 06/15/16 Naina Da Silva NP [address] [place] [address] Referring Family Medicine 09/05/23 Emergency Medical Dispatcher Relationship Specialty Start Date End Date [facility], [place] [facility] PCP - General 05/08/23 Ernesto Carter DO Family Medicine 06/15/16 Naina Da Silva NP [address] [place] [address] Referring Family Medicine 09/05/23 Team Status: Active Member Role Status Dates Naina Da Silva [employer], [employer] Primary Care Provider Active Dr. Andreas Oliva , DO Attending Provider, Referring Provider Active Emergency Medical Dispatcher Relationship Specialty Start Date End Date [facility], [facility] PCP - General 05/08/23 Ernesto Carter DO Family [facility] 06/15/16 Naina Da Silva NP [address] [place] [address] Referring [facility] 09/05/23 Emergency Medical Dispatcher Relationship Specialty Start Date End Date [facility], [facility] PCP - General 05/08/23 Ernesto Carter DO Family [facility] 06/15/16 Naina Da Silva NP [address] [place] [address] Referring Family [facility] 09/05/23 Team Status: Active Member Role Status Dates [facility] Family Provider Active Naina SANTOSC, [employer] Primary Care Provider Activ e Team Status: Inactive Member Role Status Dates Naina SANTOSC, [employer] Primary Care Provider Activ e Start: May 14, 2024 End: May 15, 2024 Dr. Stan Lin , Emergency Provider Active Start: May 14, 2024 End: May 15, 2024 Team Status: Inactive Member Role Status Dates Naina Da Silva VSC, [employer] Primary Care Provider Activ e Start: May 07, 2024 End: May 07, 2024 Zebuluadalgisa Beam VSC, [employer] Attending Provider Active Start: May 07, 2024 End: May 07, 2024 Team Status: Active Member Role Status Dates Zebudeb Beam VSC, [employer] Primary Care Provider Active Team Status: Inactive Member Role Status Dates Naina Da Silva VSC, [employer] Primary Care Provider Activ e Start: May [...] Inactive Member Role Status Dates Naina SANTOSC, [employer] Primary Care Provider Activ e Start: May 14, 2024 End: May 15, 2024 Dr. Stan Lin DO Attending Provider Active Start: May 14, 2024 End: May 15, 2024 Dr. Stan Lin DO Emergency Provider Active Start: May 14, 2024 End: May 15, 2024 Team Status: Inactive Member Role Status Dates Karina Guerra [employer], [employer]-C Attending Provider Active Start: May 23, 2024 End: May 23, 2024 Karina Guerra [employer], [employer]-C Referring Provider Active Start: May 23, 2024 End: May 23, 2024 Zebuluadalgisa Beam VSC, [employer]-C Primary Care Provider Active Start: May 23, 2024 End: May 23, 2024 Team Status: Inactive Member Role Status Dates Naina Da Silva VSC, [employer]-C Referring Provider Active Start: May 29, 2024 End: May 29, 2024 Shawanda Ramires [employer], [employer]-C Attending Provider Active Start: May 29, 2024 End: May 29, 2024 Zebulun Beam VSC, [employer]-C Primary Care Provider Active Start: May 29, 2024 End: May 29, 2024 Team Status: Inactive Member Role Status Dates Vazquezbudeb Beam VSC, [employer]-C Primary Care Provider Active Start: June 02, 2024 End: June 02, 2024 Ed Physician Provider Emergency Provider Active Start: June 02, 2024 End: June 02, 2024 Emergency Medical Dispatcher Relationship Specialty Start Date End Date Frances Olivas PCP - General 05/08/23 Ernesto Carter DO Family Medicine 06/15/16 Naina Da Silva NP [address] [place] [address] Referring Family Medicine 09/05/23 Team Status: Active Member Role Status Dates Zebulun Beam VSC, [employer]-C Primary Care Provider Active Start: June 03, 2024 Zebulun Beam VSC, [employer]-C Attending Provider Active Start: June 03, 2024 Zebulun Beam VSC, [employer]-C Referring Provider Active Start: June 03, 2024 Team Status: Inactive Member Role Status Dates Zebulun Beam VSC, [employer]-C Primary Care Provider Active Start: June 03, 2024 End: June 03, 2024 Dr. Jaylon Galicia MD Emergency Provider Active Start: June 03, 2024 End: June 03, 2024 Team Status: Inactive Member Role Status Dates Zebulun Beam VSC, [employer]-C Primary Care Provider Active Start: June 02, 2024 End: June 02, 2024 Ed Physician Provider Attending Provider Active Start: June 02, 2024 End: June 02, 2024 Ed Physician Provider Emergency Provider Active Start: June 02, 2024 End: June 02, 2024 Team Status: Inactive Member Role Status Dates Zebulun Beam VSC, [employer]-C Primary Care Provider Active Start: June 03, 2024 End: June 03, 2024 Zebulun Beam VSC, [employer]-C Attending Provider Active Start: June 03, 2024 End: June 03, 2024 Zebulun Beam VSC, [employer]-C Referring Provider Active Start: June 03, 2024 End: June 03, 2024 Team Status: Inactive Member Role Status Dates Zebulun Beam VSC, [employer]-C Primary Care Provider Active Start: June 03, 2024 End: June 03, 2024 Dr. Jaylon Galicia MD Attending Provider Active Start: June 03, 2024 End: June 03, 2024 Dr. Jaylon Galicia MD Emergency Provider Active Start: June 03, 2024 End: June 03, 2024 Team Status: Active Member Role Status Dates Zebulun Beam VSC, [employer]-C Primary Care Provider Active Start: June 05, 2024 Shawanda Ramires [employer], [employer]-C Attending Provider Active Start: June 05, 2024 Shawanda Ramires [employer], [employer]-C Referring Provider Active Start: June 05, 2024 Team Status: Inactive Member Role Status Dates Zebulun Beam VSC, [employer]-C Primary Care Provider Active Start: June 10, 2024 End: June 10, 2024 Zebulun Beam VSC, [employer]-C Attending Provider Active Start: June 10, 2024 End: June 10, 2024 Team Status: Inactive Member Role Status Dates Zebulun Beam VSC, [employer]-C Primary Care Provider Active Start: June 20, 2024 End: June 20, 2024 Shawanda Ramires [employer], [employer]-C Attending Provider Active Start: June 20, 2024 End: June 20, 2024 Shawanda Ramires [employer], [employer]-C Referring Provider Active Start: June 20, 2024 End: June 20, 2024 Team Status: Active Member Role Status Dates Zebulun Beam VSC, [employer]-C Primary Care Provider Active Start: June 20, 2024 Dr. Ozzy Greco MD Attending Provider Active S tart: June 20, 2024 Emergency Medical Dispatcher Relationship Specialty Start Date End Date Frances Olivas PCP - General 05/08/23 Ernesto Carter DO Family Medicine 06/15/16 Naina Da Silva NP [address] [place] [address] Referring Family Medicine 09/05/23 Team Status: Active Member Role Status Dates Zebulun Beam VSC, [employer]-C Primary Care Provider Active Start: June 05, 2024 Dr. Marco Bartlett MD Attending Provider Active Start: June 05, 2024 Shawanda Ramires [employer], [employer]-C Referring Provider Active Start: June 05, 2024 Team Status: Active Member Role Status Dates Zebuluadalgisa Beam VSC, [employer]-C Primary Care Provider Active Start: June 20, 2024 Dr. Ozzy Greco MD Attending Provider Active S tart: June 20, 2024 Shawanda Ramires [employer], [employer]-C Referring Provider Active Start: June 20, 2024 Team Status: Inactive Member Role Status Dates Naina Da Silva VSC, [employer]-C Referring Provider Active Start: July 08, 2024 End: July 08, 2024 Dr. Andreas Oliva DO Attending Provider Active Start: July 08, 2024 End: July 08, 2024 Zebulun Beam VSC, [employer]-C Primary Care Provider Active Start: July 08, 2024 End: July 08, 2024 Emergency Medical Dispatcher Relationship Specialty Start Date End Date [facility], Frances Tierney PCP - General 05/08/23 Ernesto Carter DO Family Medicine 06/15/16 Naina Da Silva NP [address] [place] [address] Referring Family Medicine 09/05/23 Team Status: Inactive Member Role Status Dates Vazquezbulun Beam VSC, [employer]-C Primary Care Provider Active Start: July 24, 2024 End: July 24, 2024 Karuna Beam VSC, [employer]-C Referring Provider Active Start: July 24, 2024 End: July 24, 2024 Shawanda Ramires [employer], [employer]-C Attending Provider Active Start: July 24, 2024 End: July 24, 2024 Emergency Medical Dispatcher Relationship Specialty Start Date End Date [facility], Frances Tierney PCP - General 05/08/23 Ernesto Carter DO Family [facility] 06/15/16 Naina Da Silva NP [address] [place] [address] Referring Family Medicine 09/05/23 Team Status: Inactive Member Role Status Dates Karuna Lim VSC, [employer]-C Primary Care Provider Active Start: August 07, 2024 End: August 07, 2024 Dr. Andreas Oliva DO Attending Provider Active Start: August 07, 2024 End: August 07, 2024 Dr. Andreas Oliva DO Referring Provider Active Start: August 07, 2024 End: August 07, 2024 Emergency Medical Dispatcher Relationship Specialty Start Date End Date [facility], Frances Tierney PCP - General 05/08/23 Ernesto Carter DO Family Medicine 06/15/16 Naina Da Silva NP [address] [place] [address] Referring [facility] 09/05/23 Emergency Medical Dispatcher Relationship Specialty Start Date End Date [facility], Frances Tierney PCP - General 05/08/23 Ernesto Carter DO [facility] 06/15/16 Naina Da Silva NP [address] [place] [address] Referring [facility] 09/05/23 Team Status: Active Member Role/Relationship Status Dates Karuna Lim VSC, [employer]-C Primary Care Provider Active Team Status: Inactive Member Role/Relationship Status Dates Naina SANTOSC, [employer]-C Primary Care Provider Activ e Start: May 07, 2024 End: May 07, 2024 Karuna Lim VSC, [employer]-C Attending Provider Active Start: May 07, 2024 End: May 07, 2024 Team Status: Inactive Member Role/Relationship Status Dates Naina SANTOSC, [employer]-C Primary Care Provider Activ e Start: May 08, 2024 End: May 08, 2024 Dr. Stan Lin DO Attending Provider Active Start: May 08, 2024 End: May 08, 2024 Dr. Stan Lin DO Referring Provider Active Start: May 08, 2024 End: May 08, 2024 Dr. Stan Lin DO Emergency Provider Active Start: May 08, 2024 End: May 08, 2024 Team Status: Inactive Member Role/Relationship Status Dates Naina SANTOSC, [employer]-C Primary Care Provider Activ e Start: May 14, 2024 End: May 15, 2024 Dr. Stan Lin , Attending Provider Active Start: May 14, 2024 End: May 15, 2024 Dr. Stan Lin DO Emergency Provider Active Start: May 14, 2024 End: May 15, 2024 Team Status: Inactive Member Role/Relationship Status Dates Karina Guerra [employer], [employer]-C Attending Provider Active Start: May 23, 2024 End: May 23, 2024 Karina Guerra [employer], [employer]-C Referring Provider Active Start: May 23, 2024 End: May 23, 2024 Zebulun Beam VSC, [employer]-C Primary Care Provider Active Start: May 23, 2024 End: May 23, 2024 Team Status: Inactive Member Role/Relationship Status Dates Naina Da Silva VSC, [employer]-C Referring Provider Active Start: May 29, 2024 End: May 29, 2024 Shawanda Ramires [employer], [employer]-C Attending Provider Active Start: May 29, 2024 End: May 29, 2024 Zebulun Beam VSC, [employer]-C Primary Care Provider Active Start: May 29, 2024 End: May 29, 2024 Team Status: Inactive Member Role/Relationship Status Dates Zebulun Beam VSC, [employer]-C Primary Care Provider Active Start: June 02, 2024 End: June 02, 2024 Ed Physician Provider Attending Provider Active Start: June 02, 2024 End: June 02, 2024 Ed Physician Provider Emergency Provider Active Start: June 02, 2024 End: June 02, 2024 Team Status: Inactive Member Role/Relationship Status Dates Zebulun Beam VSC, [employer]-C Primary Care Provider Active Start: June 03, 2024 End: June 03, 2024 Zebulun Beam VSC, [employer]-C Attending Provider Active Start: June 03, 2024 End: June 03, 2024 Zebulun Beam VSC, [employer]-C Referring Provider Active Start: June 03, 2024 End: June 03, 2024 Team Status: Inactive Member Role/Relationship Status Dates Zebulun Beam VSC, [employer]-C Primary Care Provider Active Start: June 03, 2024 End: June 03, 2024 Dr. Jaylon Galicia MD Attending Provider Active Start: June 03, 2024 End: June 03, 2024 Dr. Jaylon Galicia MD Emergency Provider Active Start: June 03, 2024 End: June 03, 2024 Team Status: Active Member Role/Relationship Status Dates Zebulun Beam VSC, [employer]-C Primary Care Provider Active Start: June 05, 2024 Shawanda Ramires [employer], R[employer]-C Attending Provider Active Start: June 05, 2024 Shawanda Ramires [employer], R[employer]-C Referring Provider Active Start: June 05, 2024 Team Status: Active Member Role/Relationship Status Dates Zebulun Beam VSC, [employer]-C Primary Care Provider Active Start: June 05, 2024 Dr. Marco Bartlett MD Attending Provider Active Start: June 05, 2024 Shawanda Ramires [employer], R[employer]-C Referring Provider Active Start: June 05, 2024 Team Status: Inactive Member Role/Relationship Status Dates Zebulun Beam VSC, [employer]-C Primary Care Provider Active Start: June 10, 2024 End: June 10, 2024 Zebulun Beam VSC, [employer]-C Attending Provider Active Start: June 10, 2024 End: June 10, 2024 Team Status: Inactive Member Role/Relationship Status Dates Zebulun Beam VSC, [employer]-C Primary Care Provider Active Start: June 20, 2024 End: June 20, 2024 Shawanda Ramires R[employer], R[employer] G[employer]-C Attending Provider Active Start: June 20, 2024 End: June 20, 2024 Shawanda Ramires R[employer] G[employer], R[employer] G[employer]-C Referring Provider Active Start: June 20, 2024 End: June 20, 2024 Team Status: Active Member Role/Relationship Status Dates Zebulun Beam VSC, R[employer]-C Primary Care Provider Active Start: June 20, 2024 Dr. Ozzy Greco MD Attending Provider Active S tart: June 20, 2024 Shawanda Ramires [employer], R[employer] G[employer]-C Referring Provider Active Start: June 20, 2024 Team Status: Inactive Member Role/Relationship Status Dates Naina Da Silva VSC, [employer] G[employer]-C Referring Provider Active Start: July 08, 2024 End: July 08, 2024 Dr. Andreas Oliva DO Attending Provider Active Start: July 08, 2024 End: July 08, 2024 Zebulun Beam VSC, [employer]-C Primary Care Provider Active Start: July 08, 2024 End: July 08, 2024 Team Status: Inactive Member Role/Relationship Status Dates Zebulun Beam VSC, R[employer]-C Primary Care Provider Active Start: July 24, 2024 End: July 24, 2024 Vazquezbueliezern Beam VSC, [employer] G[employer]-C Referring Provider Active Start: July 24, 2024 End: July 24, 2024 Shawanda Ramires [employer], R[employer] G[employer]-C Attending Provider Active Start: July 24, 2024 End: July 24, 2024 Team Status: Inactive Member Role/Relationship Status Dates Zebueliezern Beam VSC, [employer] G[employer]-C Primary Care Provider Active Start: August 07, 2024 End: August 07, 2024 Dr. Andreas Oliva DO Attending Provider Active Start: August 07, 2024 End: August 07, 2024 Dr. Andreas Oliva DO Referring Provider Active Start: August 07, 2024 End: August 07, 2024 Team Status: Active Member Role/Relationship Status Dates Zebulun Beam VSC, [employer]-C Primary Care Provider Active Start: September 02, 2024 Naina Da Silva VSC, [employer]-C Attending Provider Active Start: September 02, 2024 Team Status: Inactive Member Role/Relationship Status Dates Zebulun Beam VSC, [employer]-C Primary Care Provider Active Start: September 04, 2024 End: September 04, 2024 Dr. Alexandr Smith , Emergency Provider Active Start: September 04, 2024 End: September 04, 2024 Team Status: Inactive Member Role/Relationship Status Dates Naina Da Silva VSC, [employer]-C Primary Care Provider Activ e Start: May 14, 2024 End: May 15, 2024 Dr. Stan Lin DO Attending Provider Active Start: May 14, 2024 End: May 15, 2024 Dr. Stan Lin DO Emergency Provider Active Start: May 14, 2024 End: May 15, 2024 Team Status: Inactive Member Role/Relationship Status Dates Karina Guerra R[employer] G[employer], R[employer] G[employer]-C Attending Provider Active Start: May 23, 2024 End: May 23, 2024 Karina Guerra R[employer] G[employer], R[employer] G[employer]-C Referring Provider Active Start: May 23, 2024 End: May 23, 2024 Zebulun Beam VSC, R[employer] G[employer]-C Primary Care Provider Active Start: May 23, 2024 End: May 23, 2024 Team Status: Inactive Member Role/Relationship Status Dates Naina Da Silva VSC, R[employer] G[employer]-C Referring Provider Active Start: May 29, 2024 End: May 29, 2024 Shawanda Ramires R[employer] G[employer], R[employer] G[employer]-C Attending Provider Active Start: May 29, 2024 End: May 29, 2024 Zebulun Beam VSC, R[employer] G[employer]-C Primary Care Provider Active Start: May 29, 2024 End: May 29, 2024 Team Status: Inactive Member Role/Relationship Status Dates Zebulun Beam VSC, R[employer] G[employer]-C Primary Care Provider Active Start: June 02, 2024 End: June 02, 2024 Ed Physician Provider Attending Provider Active Start: June 02, 2024 End: June 02, 2024 Ed Physician Provider Emergency Provider Active Start: June 02, 2024 End: June 02, 2024 Team Status: Inactive Member Role/Relationship Status Dates Zebulun Beam VSC, R[employer] G[employer]-C Primary Care Provider Active Start: June 03, 2024 End: June 03, 2024 Zebulun Beam VSC, R[employer] G[employer]-C Attending Provider Active Start: June 03, 2024 End: June 03, 2024 Zebulun Beam VSC, R[employer] G[employer]-C Referring Provider Active Start: June 03, 2024 End: June 03, 2024 Team Status: Inactive Member Role/Relationship Status Dates Zebulun Beam VSC, R[employer] G[employer]-C Primary Care Provider Active Start: June 03, 2024 End: June 03, 2024 Dr. Jaylon Galicia MD Attending Provider Active Start: June 03, 2024 End: June 03, 2024 Dr. Jaylon Galicia MD Emergency Provider Active Start: June 03, 2024 End: June 03, 2024 Team Status: Active Member Role/Relationship Status Dates Zebulun Beam VSC, R[employer] G[employer]-C Primary Care Provider Active Start: June 05, 2024 Shawanda Ramires R[employer] G[employer], R[employer] G[employer]-C Attending Provider Active Start: June 05, 2024 Shawanda Ramires R[employer] G[employer], R[employer] G[employer]-C Referring Provider Active Start: June 05, 2024 Team Status: Active Member Role/Relationship Status Dates Zebudeb Beam VSC, R[employer] G[employer]-C Primary Care Provider Active Start: June 05, 2024 Dr. Marco Bartlett MD Attending Provider Active Start: June 05, 2024 Shawanda Ramires R[employer], R[employer] G[employer]-C Referring Provider Active Start: June 05, 2024 Team Status: Inactive Member Role/Relationship Status Dates Zebulun Beam VSC, RIV[employer] HE[employer] G[employer]-C Primary Care Provider Active Start: June 10, 2024 End: June 10, 2024 Zebulun Beam VSC, R[employer] HE[employer] G[employer]-C Attending Provider Active Start: June 10, 2024 End: June 10, 2024 Team Status: Inactive Member Role/Relationship Status Dates Zebulun Beam VSC, R[employer] G[employer]-C Primary Care Provider Active Start: June 20, 2024 End: June 20, 2024 Shawanda Ramires R[employer] G[employer], RIV[employer] HE[employer] G[employer]-C Attending Provider Active Start: June 20, 2024 End: June 20, 2024 Shawanda Ramires RIV[employer] HE[employer] G[employer], RIV[employer] HE[employer] G[employer]-C Referring Provider Active Start: June 20, 2024 End: June 20, 2024 Team Status: Active Member Role/Relationship Status Dates Zebulun Beam VSC, RIV[employer] HE[employer] G[employer]-C Primary Care Provider Active Start: June 20, 2024 Dr. Ozzy Greco MD Attending Provider Active S tart: June 20, 2024 Shawanda Ramires R[employer], R[employer] G[employer]-C Referring Provider Active Start: June 20, 2024 Team Status: Inactive Member Role/Relationship Status Dates Naina Da Silva VSC, R[employer] G[employer]-C Referring Provider Active Start: July 08, 2024 End: July 08, 2024 Dr. Andreas Oliva DO Attending Provider Active Start: July 08, 2024 End: July 08, 2024 Zebulun Beam VSC, R[employer] G[employer]-C Primary Care Provider Active Start: July 08, 2024 End: July 08, 2024 Team Status: Inactive Member Role/Relationship Status Dates Zebulun Beam VSC, RIV[employer] HE[employer] G[employer]-C Primary Care Provider Active Start: July 24, 2024 End: July 24, 2024 Zebulun Beam VSC, R[employer] HE[employer] G[employer]-C Referring Provider Active Start: July 24, 2024 End: July 24, 2024 Shawanda Ramires R[employer] G[employer], R[employer] HE[employer] G[employer]-C Attending Provider Active Start: July 24, 2024 End: July 24, 2024 Team Status: Inactive Member Role/Relationship Status Dates Zebulun Beam VSC, R[employer] HE[employer] G[employer]-C Primary Care Provider Active Start: August 07, 2024 End: August 07, 2024 Dr. Andreas Oliva DO Attending Provider Active Start: August 07, 2024 End: August 07, 2024 Dr. Andreas Oliva DO Referring Provider Active Start: August 07, 2024 End: August 07, 2024 Team Status: Inactive Member Role/Relationship Status Dates Karuna Lim VSC, R[employer] G[employer]-C Primary Care Provider Active Start: September 02, 2024 End: September 02, 2024 Naina Da Silva VSC, [employer] G[employer]-C Attending Provider Active Start: September 02, 2024 End: September 02, 2024 Team Status: Inactive Member Role/Relationship Status Dates Karuna Lim VSC, [employer] G[employer]-C Primary Care Provider Active Start: September 04, 2024 End: September 04, 2024 Dr. Alexandr Smith DO Emergency Provider Active Start: September 04, 2024 End: September 04, 2024 Emergency Medical Dispatcher Relationship Specialty Start Date End Date Deisy, Frances Tierney PCP - General 05/08/23 Ernesto Carter DO Family Medicine 06/15/16 Naina Da Silva NP [address] [place] [address] Referring Family Medicine 09/05/23 Reason for Visit [...] Obesity, Class III, BMI 40-49.9 (morbid obesity) ([facility]) Procedures ENDOCRINOLOGY DIETITIAN VISIT ([facility]NT) MEDICAL NUTRITION ASSMT&IVNTJ INDIV EACH 15 MD MEDICAL NUTRITION ASSMT&IVNTJ INDIV EACH 15 MD MEDICAL NUTRITION ASSMT&IVNTJ INDIV EACH 15 MD MEDICAL NUTRITION ASSMT&IVNTJ INDIV EACH 15 MD Jey Johnsno MD [address] [place] [address] Referral ID Status Reason Start Date Expiration Date V isits Requested Visits Authorized [id number] Closed PCP Requested Referral 01/08/2024 01/07/2025 1 1 Reason Comments Diarrhea vomiting, cough, chi lls and fever x 4 days Reason Comments Established Patient Follow-Up Reason Comments Medical Weight Management Specialty Diagnoses / Procedures Referred By Contolena t Referred To Contact Diagnoses Obesity, Class III, BMI 40-49.9 (morbid obesity) (HCC) PCOS (polycystic ovarian syndrome) Procedures ENDOCRINE MEDICAL WEIGHT MANAGEMENT OFFICE/OUTPATIENT [facility] 60 MINUTES Jey Johnson MD [address] [facility] [address] [address] Phone: tel: fax: Referral ID Status Reason Start Date Expiration Date V isits Requested Visits Authorized [id number] Closed PCP Requested Referral 04/15/2024 04/15/2025 1 [...] BE BASED ON THE PRIMARY CLINICAL RECORDS. [email or web address] provides no warranty or guarantee of the accuracy or completeness of information in this document.
--- NOTE | 2024-09-21 21:43 | EDS_ITS ---
HPI <EDELMIRA Johns - Last Filed: 09/21/24 22:08> History of Present Illness Chief Complaint: Nausea/Vomiting/Diarrhea Narrative Narrative: 28-year-old female with history of autism, hypertension, IBS-D, GERD, gastroparesis, fatty liver presents with abdominal cramping and diarrhea that started last night. She states she has found 20 times since then and it is loose and brown. Imodium did not help. She had nausea and vomiting this morning. No fever or chills. No chest pain, shortness of breath or upper respiratory symptoms. No melena hematochezia. She is a patient of Dr. Oliva and states she has had EGDs and colonoscopies. Mom is concerned about C. difficile; she is never had a history of C. difficile and has no recent travel or antibiotic use. [facility] <EDELMIRA Johns - Last Filed: 09/21/24 22:08> [facility] Medical History (Reviewed 07/24/24 @ 13:38 by Shawanda Ramires NEWS VIDEOTAPE EDITOR, NEWS VIDEOTAPE EDITOR-C) Alcohol use Picking own skin Low iron Fatty liver Gastroparesis Cardiology follow-up encounter Palpitations Obesity Depression Diabetes GERD (gastroesophageal reflux disease) Irregular heart beat Cellulitis History of echocardiogram Wears glasses Bipolar disorder Anxiety Arthritis Back pain Migraine headache Syncope Non-smoker Bipolar 1 disorder PCOS (polycystic ovarian syndrome) IBS (irritable bowel syndrome) Migraines Autism Home Medications ?Medication ?Instructions ?Recorded ?Last Taken ?Type lithium carbonate 300 mg capsule 300 mg PO DAILY Bipol ar 04/05/17 10/22/23 History ferrous sulfate 325 mg (65 mg 325 mg PO QODAY suppleme nt 01/24/22 10/21/23 History iron) tablet (FeroSul) lithium carbonate 600 mg capsule 600 mg PO QHS mental health 01/24/22 10/22/23 History aripiprazole lauroxil 441 mg/1.6 441 mg IM .COMPLEX me [facility] 12/18/22 10/23/23 History mL suspension, ext.rel. IM syringe (Aristada) cholecalciferol (vitamin D3) 25 25 mcg PO DAILY vitami n 12/18/22 10/22/23 History mcg (1,000 unit) tablet (Vitamin D3) imipramine HCl 25 mg tablet 25 mg PO DAILY mental heal 12/18/22 10/22/23 History mecobalamin (vitamin B12) 1,000 1,000 mcg PO DAILY 10/22/23 History mcg lozenges pantoprazole 40 mg tablet,delayed 40 mg PO DAILY 06/0210/22/23 History release simvastatin 20 mg tablet 20 mg PO QHS 06/03/23 History lactulose 10 gram/15 mL oral 30 g (45 mL) PO BID PRN 0 09/28/23 10/21/23 Rx solution constipation #473 mL hyoscyamine sulfate 0.125 mg tablet 0.125 mg PO BID-QI D PRN dyspepsia 10/10/23 10/21/23 Rx #30 tabs polyethylene glycol 3350 17 4 g PO ONCE PRN constipati on 10/17/23 10/24/23 History gram/dose oral powder (Miralax) sucralfate 1 gram tablet 1 g PO TID PRN constipation 10/19/23 10/21/23 History diphenoxylate-atropine 2.5 1 tab PO BID PRN diarrhea # 30 tabs 10/29/23 Unknown Rx mg-0.025 mg tablet (Lomotil) metoclopramide HCl 10 mg tablet 5 mg (1/2 x 10 mg) PO BID nausea 04/22/24 Unknown Rx (Reglan) and vomiting #28 tabs dicyclomine 20 mg tablet 20 mg PO TID PRN abdominal p ain 05/08/24 Unknown Rx #30 tabs metoclopramide HCl 10 mg tablet 10 mg PO Q6H PRN nause a and 05/08/24 Unknown Rx (Reglan) vomiting #20 tabs miscellaneous medical supply #1 ea 05/29/24 Unknown Rx metoprolol tartrate 50 mg tablet 100 mg (2 x 50 mg) PO BID #180 tabs 07/21/24 Unknown Rx amitriptyline 25 mg tablet 25 mg PO DAILY 09/04/24 Unk nown History amlodipine 2.5 mg tablet 2.5 mg PO BID 09/04/24 Unkno wn History atogepant 60 mg tablet (Qulipta) 60 mg PO DAILY Unknown History cyanocobalamin (vitamin B-12) 1,000 mcg sublingual YI LY 09/04/24 Unknown History 1,000 mcg sublingual tablet norgestimate 0.25 mg-ethinyl 1 tab PO DAILY 09/04/24 U nknown History estradiol 0.035 mg tablet (Dar[place]-Linyah) rizatriptan 10 mg tablet 10 mg PO Q2H PRN migraine he adache 09/04/24 Unknown History Allergy/AdvReac Type Severity Reaction Status Date / Time metformin Allergy Mild Nausea/Vom/ Verified 09/21/24 20:33 Diarrhea pollen extracts Allergy Hives Verified 09/21/24 20:33 escitalopram (From Lexapro) AdvReac Other Verified 09/21/24 20:33 lactase (From Dairy Aid) AdvReac Upset Verified 09/21/24 20:33 Stomach ondansetron (From Zofran (as AdvReac Anaphylaxis Verified 09/21/24 20:33 hydrochloride)) Family History (Reviewed 07/24/24 @ 13:38 by Shawanda Ramires NEWS VIDEOTAPE EDITOR, NEWS VIDEOTAPE EDITOR-C) Mother Uterine cancer Other Asthma Depression Diabetes GERD (gastroesophageal reflux disease) Heart disease Hyperlipidemia Hypertension Surgical History (Reviewed 07/24/24 @ 13:38 by Shawanda Ramires NEWS VIDEOTAPE EDITOR, NEWS VIDEOTAPE EDITOR-C) History of colonoscopy History of esophagogastroduodenoscopy (EGD) History of tonsillectomy and adenoidectomy H/O knee surgery H/O spinal fusion Social History (Reviewed 07/24/24 @ 13:38 by Shawanda Ramires NEWS VIDEOTAPE EDITOR, NEWS VIDEOTAPE EDITOR-C) household members: none housing: apartment current occupational status: unemployed history of recent travel: No Smoking Status: Never smoker alcohol intake: current alcohol intake frequency: holidays/special occasions only substance use type: does not use caffeine: Yes Type: carbonated beverages what type of physical activity do you participate in: walking frequency: daily seatbelt use: always do you feel safe at home: Yes additional social history: single ROS <EDELMIRA Johns - Last Filed: 09/21/24 22:08> ROS ED ROS Narrative Constitutional: Negative for fever, chills, malaise. GI: Positive for abdominal pain, nausea, vomiting, diarrhea. Negative for melena, hematochezia. : Negative for dysuria. EXAM <EDELMIRA Johns - Last Filed: 09/21/24 22:08> Physical Exam Narrative Exam Narrative: CONST: Patient sitting in no acute distress. EYES: Normal inspection. ENT: Normal inspection, moist mucous membranes. NECK: Normal inspection. RESP: No respiratory distress, CTAB. CVS: Regular rate and rhythm, no murmur, no gallop. ABD: Soft obese abdomen, she reported right-sided tenderness when I laid my hand on her abdomen before palpation but did not seem uncomfortable with palpation, no guarding or rebound, nondistended. SKIN: Color normal, no rash, warm, dry, intact. EXTREMITIES: Normal appearance, no pedal edema. NEURO: Alert and answering questions appropriately. PSYCH: Normal affect. Const Vital Signs: 09/21/24 20:32 09/21/24 22:47 Temperature 98.7 F 97.6 F L Temperature Source Oral Pulse Rate 72 75 Respiratory Rate 18 16 Blood Pressure 165/91 H 145/72 H Blood Pressure Mean 115 96 Pulse Ox 100 98 Oxygen Delivery Method Room Air <Rodolfo Das MD - Last Filed: 09/21/24 23:01> Physical Exam Const Vital Signs: 09/21/24 20:32 09/21/24 22:47 Temperature 98.7 F 97.6 F L Temperature Source Oral Pulse Rate 72 75 Respiratory Rate 18 16 Blood Pressure 165/91 H 145/72 H Blood Pressure Mean 115 96 Pulse Ox 100 98 Oxygen Delivery Method Room Air MDM <EDELMIRA Johns - Last Filed: 09/21/24 22:08> [facility] MDM Narrative Medical decision making narrative: History gathered from: Patient and mom Differential includes but not limited to: Electrolyte derangement, SERGIO, viral diarrhea, IBS, C. difficile 28-year-old female with history of IBS-D, gastroparesis, possible Crohn's? Presents with abdominal cramping and diarrhea that started last night. She has had 1 episode of emesis but ongoing diarrhea. She appears well and nontoxic. She is hypertensive which is a chronic condition and vitals are otherwise normal. Abdomen soft, benign. CBC is unremarkable. CMP pending. She was treated with IV fluids, Phenergan due to Zofran allergy, and Bentyl. If patient can provide a stool sample will be sent for C. difficile testing. With her benign abdominal exam and no leukocytosis I do not think she requires a CT scan. She was signed over to my attending for final disposition but at this time plan is for discharge home and outpatient GI follow-up. External records reviewed: There is extensive documentation from Dr. Oliva. She has gastroparesis thought to be secondary to her psychiatric medications and was on Reglan therapy. An MRI enterography at some point showed inflammation of the small bowel possibly consistent with IBD and she was started on budesonide therapy. History & Record Review Discussion w/independent historian: Patient and Family Additional record(s) reviewed:: Prior outpatient record, Prior ED visit and Prior labs Lab Data Attestation: I reviewed the patient's lab results. Labs: Laboratory Results - last 24 hr 09/21/24 20:56 WBC 6.9 RBC 4.72 Hgb 12.6 Hct 39.6 MCV 83.9 MCH 26.7 L MCHC 31.8 L RDW Std Deviation 43.8 RDW Coeff of Delmy 14.2 Plt Count 376 MPV 9.1 Immature Gran % (Auto) 0.100 Neut % (Auto) 50.6 Lymph % (Auto) 37.3 [place] % (Auto) 9.8 Eos % (Auto) 1.6 Baso % (Auto) 0.6 Absolute Neuts (auto) 3.5 Absolute Lymphs (auto) 2.56 Nucleated RBC % 0 Sodium 140 Potassium 3.8 Chloride 105 Carbon Dioxide 21.8 Anion Gap 13 BUN 10 Creatinine 0.60 L Estim Creat Clear Calc 196.90 Est GFR (MDRD) Non-Af 126 BUN/Creatinine Ratio 16.6 Glucose 94 Calcium 9.2 Total Bilirubin 0.38 AST 51 H ALT 57 H Alkaline Phosphatase 65 Total Protein 7.0 Albumin 4.0 Globulin 3.0 Albumin/Globulin Ratio 1.3 <Rodolfo Das MD - Last Filed: 09/21/24 23:01> [facility] Lab Data Labs: Laboratory Results - last 24 hr 09/21/24 20:56 WBC 6.9 RBC 4.72 Hgb 12.6 Hct 39.6 MCV 83.9 MCH 26.7 L MCHC 31.8 L RDW Std Deviation 43.8 RDW Coeff of Delmy 14.2 Plt Count 376 MPV 9.1 Immature Gran % (Auto) 0.100 Neut % (Auto) 50.6 Lymph % (Auto) 37.3 [place] % (Auto) 9.8 Eos % (Auto) 1.6 Baso % (Auto) 0.6 Absolute Neuts (auto) 3.5 Absolute Lymphs (auto) 2.56 Nucleated RBC % 0 Sodium 140 Potassium 3.8 Chloride 105 Carbon Dioxide 21.8 Anion Gap 13 BUN 10 Creatinine 0.60 L Estim Creat Clear Calc 196.90 Est GFR (MDRD) Non-Af 126 BUN/Creatinine Ratio 16.6 Glucose 94 Calcium 9.2 Total Bilirubin 0.38 AST 51 H ALT 57 H Alkaline Phosphatase 65 Total Protein 7.0 Albumin 4.0 Globulin 3.0 Albumin/Globulin Ratio 1.3 Treatment and Re-Evaluation :: Dr. Das: I have personally performed a face to face assessment of the patient and have reviewed the SHARON Note. I performed a substantive portion of the visit including all aspects of the following. My christianson findings include: History is diarrhea, abdominal pain. Questionable history of IBS versus Crohn. No recent antibiotic use. Exam is afebrile. Vital signs noted. Nontoxic-appearing. Cardiovascular examination regular rate and rhythm. Lungs clear to auscultation bilaterally. Abdomen is soft and nontender with positive bowel sounds. No guarding or re bound. Medical Decision Making: Check labs. IV fluids. Send stool sample for C. difficile, but no recent antibiotics. Review of her laboratory work shows no elevated white count, no electrolyte imbalance or evidence of dehydration. Stool sample sent for C. difficile. I feel she can be discharged to follow-up with gastroenterology. Return instructions reviewed. Disposition is discharged home in stable condition. Other additions or changes: [None] Discharge Plan Triage Chief Complaint: Nausea/Vomiting/Diarrhea ED Midlevel Provider: India Crawford ED Provider: Rodolfo Das Dx/Rx/DC Orders Clinical Impression: Abdominal pain, Acute diarrhea Instructions: ED Diarrhea, Unknown Cause Prescriptions: No Action mecobalamin (vitamin B12) 1,000 mcg lozenge 1,000 mcg PO DAILY Rx Instructions: allow to dissolve in mouth OR may chew lightly before swallowing hyoscyamine sulfate 0.125 mg tablet 0.125 mg PO BID-QID PRN (Reason: dyspepsia) Qty: 30 0RF (DME) miscellaneous medical supply Misc See Rx Instructions .Route Qty: 1 0RF Rx Instructions: As directed lithium carbonate 300 MG capsule 300 mg PO DAILY lithium carbonate 600 mg Capsule 600 mg PO QHS ferrous sulfate [FeroSul] 325 mg (65 mg iron) tablet 325 mg PO QODAY imipramine HCl 25 mg tablet 25 mg PO DAILY cholecalciferol (vitamin D3) [Vitamin D3] 25 mcg (1,000 unit) tablet 25 mcg PO DAILY Aristada 441 mg/1.6 mL suspension,extended rel syring 441 mg IM .COMPLEX Rx Instructions: 441 mg intramuscularly Q28D; due first week september polyethylene glycol 3350 [Miralax] 17 gram/dose powder 4 g PO ONCE PRN (Reason: constipation) sucralfate 1 gram tablet 1 g PO TID PRN (Reason: constipation) Rx Instructions: 1 g orally Take on an empty stomach. Hour before meals-lunch and dinner; do not take within 2 hours before or after lithium metoclopramide HCl [Reglan] 10 mg tablet 10 mg PO Q6H PRN (Reason: nausea and vomiting) Qty: 20 0RF dicyclomine 20 mg tablet 20 mg PO TID PRN (Reason: abdominal pain) Qty: 30 0RF amitriptyline 25 mg tablet 25 mg PO DAILY norgestimate-ethinyl estradiol [[place]-Linyah] 0.25-0.035 mg tablet 1 tab PO DAILY cyanocobalamin (vitamin B-12) 1,000 mcg tablet, sublingual 1,000 mcg sublingual DAILY Qulipta 60 mg tablet 60 mg PO DAILY rizatriptan 10 mg tablet 10 mg PO Q2H PRN (Reason: migraine headache) amlodipine 2.5 mg tablet 2.5 mg PO BID simvastatin 20 mg tablet 20 mg PO QHS pantoprazole 40 mg tablet,delayed release (DR/EC) 40 mg PO DAILY lactulose 10 gram/15 mL solution 30 g PO BID PRN (Reason: constipation) Qty: 473 1RF diphenoxylate-atropine [Lomotil] 2.5-0.025 mg tablet 1 tab PO BID PRN (Reason: diarrhea) Qty: 30 2RF metoclopramide HCl [Reglan] 10 mg tablet 5 mg PO BID Qty: 28 11RF metoprolol tartrate 50 mg tablet 100 mg PO BID Qty: 180 3RF Primary Care Provider: Karuna Lim Referrals: Andreas Oliva DO [Med Staff - Active Staff] - Karuna Lim, NEWS VIDEOTAPE EDITOR-C [Primary Care Provider] - Activity Restrictions/Additional Instructions: Follow-up with gastroenterology as soon as possible. You will be contacted should your C. difficile test be positive. Return with fever, new or worsening symptoms. Print Language: Armenian Disposition Disposition: Home, Self Care Discharge Date/Time: 09/21/24 22:47
[2024-09-21 22:05] LABS: AST(SGOT) 51 U/L (<=31); Alanine Aminotransfer ALT/SGPT 57 U/L (<=34); Albumin, Serum 4.0 g/dL (3.5-5.0); Alkaline Phosphatase 65 U/L (35-104); Anion Gap 13 (5-15); BUN 10 mg/dL (4-19); BUN/Creat Ratio 16.6 RATIO (10-20); Calcium,Total 9.2 mg/dL (7.6-11.0); Carbon Dioxide 21.8 mmol/L (21.0-32.0); Chloride 105 mmol/L (98-108); Estimated Creatinine Clearance 196.90 ml/min (50-250); Globulin 3.0 g/dL (2.2-4.2); Glucose 94 mg/dL (70-99); Potassium 3.8 mmol/L (3.3-5.1)
[2024-09-21 22:47] VITALS: BP 145/72; PULSE 75; RESP 16; TEMP 36.4; O2SAT 98
== END 2024-09-21 22:47 | disposition home or self-care (01) ==
PROVIDERS: Physician Assistant; Emergency Provider Emergency Medicine; Visit Provider Emergency Medicine
DX: R10.9 Unspecified abdominal pain (principal); F31.9 Bipolar disorder, unspecified; E11.9 Type 2 diabetes mellitus without complications; R19.7 Diarrhea, unspecified; I10 Essential (primary) hypertension; Z79.899 Other long term (current) drug therapy; R11.2 Nausea with vomiting, unspecified
CPT/HCPCS: 80053; 85025; 87493; 96360; 96361; 96372; 99282; A4216

== ENCOUNTER 2024-09-27 11:49 | Emergency (ER) | payer MEDICAID, SELFPAY ==
[2024-09-27 11:50] VITALS: BP 165/104; PULSE 102; RESP 18; TEMP 36.8; O2SAT 96; BMI 46.5
--- NOTE | 2024-09-27 12:31 | EX.ED.VIS.PS ---
HPI HPI - Psych History of Present Illness Chief Complaint: Suicidal Informant: patient Onset/Context/Timing Onset: Days Context: Gradual Onset Timing: Continuous Current Severity: Mild Maximum Severity: Mild Associated Symptoms Associated Symptoms - Psych: Positive for Depressed and Suicidal Thoughts Specific plan (suicidal thought): None Narrative Narrative: 28-year-old female history of diabetes, bipolar irritable bowel. States he said diarrhea for about 10+ days. To the point there is got her depressed and she is suicidal. Denies any prior attempt at this time. In the past she has tried to overdose. She does not have a specific plan at this time. Prior similar symptoms: Yes Recent Illness/Hospitalization: No PFSH PFS Medical History Alcohol use Picking own skin Low iron Fatty liver Gastroparesis Cardiology follow-up encounter Palpitations Obesity Depression Diabetes GERD (gastroesophageal reflux disease) Irregular heart beat Cellulitis History of echocardiogram Wears glasses Bipolar disorder Anxiety Arthritis Back pain Migraine headache Syncope Non-smoker Bipolar 1 disorder PCOS (polycystic ovarian syndrome) IBS (irritable bowel syndrome) Migraines Autism Home Medications ?Medication ?Instructions ?Recorded ?Last Taken ?Type lithium carbonate 300 mg capsule 300 mg PO DAILY Bipolar 04/05/17 10/22/23 History ferrous sulfate 325 mg (65 mg 325 mg PO QODAY supplement 01/24/22 10/21/23 History iron) tablet (FeroSul) lithium carbonate 600 mg capsule 600 mg PO QHS mental health 01/24/22 10/22/23 History aripiprazole lauroxil 441 mg/1.6 441 mg IM .COMPLEX mental health 12/18/22 10/23/23 History mL suspension, ext.rel. IM syringe ([place]ada) cholecalciferol (vitamin D3) 25 25 mcg PO DAILY vitamin 12/18/22 09/26/24 History mcg (1,000 unit) tablet (Vitamin D3) imipramine HCl 25 mg tablet 25 mg PO DAILY mental health 12/18/22 10/22/23 History mecobalamin (vitamin B12) 1,000 1,000 mcg PO DAILY 03/20/23 10/22/23 History mcg lozenges pantoprazole 40 mg tablet,delayed 40 mg PO DAILY 06/03/23 10/22/23 History release simvastatin 20 mg tablet 20 mg PO QHS 06/03/23 10/22/23 History lactulose 10 gram/15 mL oral 30 g (45 mL) PO BID PRN 09/28/23 10/21/23 Rx solution constipation #473 mL hyoscyamine sulfate 0.125 mg tablet 0.125 mg PO BID-QID PRN dyspepsia 10/10/23 10/21/23 Rx #30 tabs polyethylene glycol 3350 17 4 g PO ONCE PRN constipation 10/17/23 10/24/23 History gram/dose oral powder (Miralax) sucralfate 1 gram tablet 1 g PO TID PRN constipation 10/19/23 10/21/23 History diphenoxylate-atropine 2.5 1 tab PO BID PRN diarrhea #30 tabs 10/29/23 Unknown Rx mg-0.025 mg tablet (Lomotil) metoclopramide HCl 10 mg tablet 5 mg (1/2 x 10 mg) PO BID nausea 04/22/24 Unknown Rx (Reglan) and vomiting #28 tabs dicyclomine 20 mg tablet 20 mg PO TID PRN abdominal pain 05/08/24 09/23/24 Rx #30 tabs metoclopramide HCl 10 mg tablet 10 mg PO Q6H PRN nausea and 05/08/24 Unknown Rx (Reglan) vomiting #20 tabs miscellaneous medical supply #1 ea 05/29/24 Unknown Rx metoprolol tartrate 50 mg tablet 100 mg (2 x 50 mg) PO BID #180 tabs 07/21/24 Unknown Rx amitriptyline 25 mg tablet 25 mg PO DAILY 09/04/24 Unknown History amlodipine 2.5 mg tablet 2.5 mg PO BID 09/04/24 Unknown History atogepant 60 mg tablet (Qulipta) 60 mg PO DAILY 09/04/24 09/27/24 History cyanocobalamin (vitamin B-12) 1,000 mcg sublingual DAILY 09/04/24 09/26/24 History 1,000 mcg sublingual tablet norgestimate 0.25 mg-ethinyl 1 tab PO DAILY 09/04/24 Unknown History estradiol 0.035 mg tablet (Baca-Linyah) rizatriptan 10 mg tablet 10 mg PO Q2H PRN migraine headache 09/04/24 Unknown History diphenoxylate-atropine 2.5 1 tab PO TID #90 tabs 09/25/24 09/27/24 10:00 Rx mg-0.025 mg tablet Allergy/AdvReac Type Severity Reaction Status Date / Time metformin Allergy Mild Nausea/Vom/ Verified 09/27/24 11:53 Diarrhea pollen extracts Allergy Hives Verified 09/27/24 11:53 escitalopram (From Lexapro) AdvReac Other Verified 09/27/24 11:53 lactase (From Dairy Aid) AdvReac Upset Verified 09/27/24 11:53 Stomach ondansetron (From Zofran (as AdvReac Anaphylaxis Verified 09/27/24 11:53 hydrochloride)) Family History Mother Uterine cancer Other Asthma Depression Diabetes GERD (gastroesophageal reflux disease) Heart disease Hyperlipidemia Hypertension Surgical History History of colonoscopy History of esophagogastroduodenoscopy (EGD) History of tonsillectomy and adenoidectomy H/O knee surgery H/O spinal fusion Social History household members: none housing: apartment current occupational status: unemployed history of recent travel: No Smoking Status: Never smoker alcohol intake: current alcohol intake frequency: holidays/special occasions only substance use type: does not use caffeine: Yes Type: carbonated beverages what type of physical activity do you participate in: walking frequency: daily seatbelt use: always do you feel safe at home: Yes additional social history: single ROS ROS ED ROS Narrative Diarrhea. Constitutional Constitutional ED: Denies chills or fever(s) Eyes Eyes: Denies blurry vision ENT ENT ED: Denies ear pain Cardiovascular Cardiovascular: Denies chest pain Respiratory/Chest Respiratory/Chest: Denies cough or dyspnea Gastrointestinal Gastrointestinal: Reports abdominal pain and diarrhea; Denies nausea or vomiting Genitourinary Genitourinary ED: Denies dysuria or hematuria Musculoskeletal Musculoskeletal: Denies arthralgias Neurologic Neurologic: Denies headache(s) Psychiatric Psychiatric: Reports depression and suicidal thoughts; Denies anxiety Endocrine Endocrinology: Denies polydipsia Hematologic/Lymphatic Hematologic/Lymphatic: Denies easy bleeding Allergic/Immunologic Allergic/Immunologic ED: Denies mouth swelling EXAM Physical Exam Narrative Exam Narrative: 28-year-old female vital signs stable afebrile. No acute distress. Sitting upright in chair and then moved to the bed. Mom in the room. H EENT exam pupils round react light. Dry mucous membranes. Neck nontender no JVD. Lungs clear to auscultation. Heart regular rhythm no murmur. Abdomen soft nondistended normal bowel sounds without peritoneal signs. Minimal right-sided tenderness. No McBurney's point tenderness. No hernia or mass. No distention. Patient moving all 4 extremities. Nontender no edema. Normal strength. Back nontender. Neurologically she is awake alert. Answering questions following commands. She does make eye contact she is forthcoming with information. Const Vital Signs: 09/27/24 11:50 09/27/24 12:49 Temperature 98.2 F Temperature Source Oral Pulse Rate 102 H 87 Respiratory Rate 18 18 Blood Pressure 165/104 H 166/92 H Blood Pressure Mean 124 116 Pulse Ox 96 97 Oxygen Delivery Method Room Air Room Air Positive well nourished and well developed; Negative for cachectic, contractures or unkempt General Appearance ED: well developed and NAD; Negative for unkempt, cachectic, contractures or pallor Nutritional Appearance: Negative for cachectic HEENT Denies moist mucous membranes HEENT Narrative: Dry mucous membranes. normocephalic and atraumatic Eyes PERRL and EOMs intact bilaterally Neck no lymphadenopathy, supple and no JVD Resp normal respiratory effort and clear to auscultation bilaterally Cardio S1 normal heart sound, S2 normal heart sound and no murmurs GI non-distended and no masses; Negative for non-tender GI Narrative: Mild right-sided tenderness. Auscultation: normoactive bowel sounds Palpation: soft and tender; Negative for guarding, hepatomegaly, splenomegaly or mass Back/Spine no CVA tenderness Extremity normal to inspection General Extremety ED: Negative for edema, tenderness or other findings General Extremity: Negative for edema or other findings Neuro oriented x3 and CN's II-XII intact bilaterally Sensorium / Orientation: alert, oriented to person, oriented to place and oriented to time Motor Exam: strength 5/5 throughout Psych cooperative, speech normal, activity/motor behavior normal, denies hallucinations and denies homicidal ideation; Negative for affect normal or denies suicidal ideation Appearance: grossly normal, appropriate and well kempt; Negative for unkempt Attitude: calm Activity / Motor Behavior: appropriate eye contact Speech: normal speech Mood & Affect: depressed and sad Thought Process: normal thought process Thought Content: suicidality Attention / Concentration: attention grossly intact Memory / Cognition: memory grossly intact Insight: insight good Judgement: judgement good Skin General Skin Exam: Negative for jaundice or pallor Lesions: no lesions Rashes: no rashes MDM MDM MDM Narrative Medical decision making narrative: 28-year-old female history of IBS has been a lot of diarrhea in the last 10 days. Now she states that she is more depressed because of diarrhea and suicidal but has had no attempt this time she has had prior attempts in the past. ED mental health workup with labs. She will get IV fluids. 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 Repeat exam patient is doing well at 2:18 PM awaiting social media analyst evaluation to determine if we need to have her placed for depression or suicidal ideation or if she is comfortable with being discharged home with outpatient follow-up and follow-up for her chronic diarrhea. Patient is currently speaking to the counseling center personnel. She is resting comfortably in bed. Crisis personnel spoke with me. Patient actually wants to be a psychiatric admission. As does her mother. [facility] personnel was comfortably discharged home as well as support her for an admission so she is working on getting her admitted to a psychiatric facility. History & Record Review Discussion w/independent historian: Patient Additional record(s) reviewed:: Prior inpatient record, Prior outpatient record, Prior ED visit and Prior labs Lab Data Attestation: I reviewed the patient's lab results. Lab results narrative: CBC is normal. White count of 5. H&H 13 and 41. Platelets 349. Electrolytes show sodium 141. Gap 13. Normal BUN and creatinine. Liver enzymes unremarkable AST of 53 ALT of 82. Serum test is negative. Tox screen negative. Alcohol negative. Labs: Laboratory Results - last 24 hr 09/27/24 09/27/24 12:40 13:15 WBC 5.7 RBC 4.98 Hgb 13.5 Hct 41.1 MCV 82.5 MCH 27.1 MCHC 32.8 RDW Std Deviation 41.9 RDW Coeff of Delmy 13.9 Plt Count 349 MPV 9.0 Immature Gran % (Auto) 0.200 Neut % (Auto) 64.2 Lymph % (Auto) 24.2 Baca % (Auto) 9.3 Eos % (Auto) 1.4 Baso % (Auto) 0.7 Absolute Neuts (auto) 3.7 Absolute Lymphs (auto) 1.38 Nucleated RBC % 0 Sodium 141 Potassium 3.3 Chloride 107 Carbon Dioxide 20.7 L Anion Gap 13 BUN 10 Creatinine 0.76 Estim Creat Clear Calc 154.37 Est GFR (MDRD) Non-Af 110 BUN/Creatinine Ratio 13.6 Glucose 130 H Calcium 9.8 Total Bilirubin 0.36 AST 53 H ALT 82 H Alkaline Phosphatase 71 Total Protein 7.2 Albumin 4.0 Globulin 3.1 Albumin/Globulin Ratio 1.3 Serum , Qual NEGATIVE Urine Opiates Screen NEGATIVE U Buprenorphine Qual NEGATIVE Ur Oxycodone Screen NEGATIVE Urine Methadone Screen NEGATIVE Urine Fentanyl Screen NEGATIVE Ur Barbiturates Screen NEGATIVE Ur Phencyclidine Scrn NEGATIVE Ur Amphetamines Screen NEGATIVE U Benzodiazepines Scrn NEGATIVE Urine Cocaine Screen NEGATIVE U Cannabinoids Screen NEGATIVE Ethyl Alcohol < 10.1 Discharge Plan Triage Chief Complaint: Suicidal Other Complaint: Diarrhea ED Provider: Mazin Wilkinson Dx/Rx/DC Orders Clinical Impression: Depression, History of bipolar disorder, Suicidal thoughts Prescriptions: No Action mecobalamin (vitamin B12) 1,000 mcg lozenge 1,000 mcg PO DAILY Rx Instructions: allow to dissolve in mouth OR may chew lightly before swallowing hyoscyamine sulfate 0.125 mg tablet 0.125 mg PO BID-QID PRN (Reason: dyspepsia) Qty: 30 0RF (DME) miscellaneous medical supply Misc See Rx Instructions .Route Qty: 1 0RF Rx Instructions: As directed diphenoxylate-atropine 2.5-0.025 mg tablet 1 tab PO TID Qty: 90 0RF lithium carbonate 300 MG capsule 300 mg PO DAILY lithium carbonate 600 mg Capsule 600 mg PO QHS ferrous sulfate [FeroSul] 325 mg (65 mg iron) tablet 325 mg PO QODAY imipramine HCl 25 mg tablet 25 mg PO DAILY cholecalciferol (vitamin D3) [Vitamin D3] 25 mcg (1,000 unit) tablet 25 mcg PO DAILY Aristada 441 mg/1.6 mL suspension,extended rel syring 441 mg IM .COMPLEX Rx Instructions: 441 mg intramuscularly Q28D; due first week of september polyethylene glycol 3350 [Miralax] 17 gram/dose powder 4 g PO ONCE PRN (Reason: constipation) sucralfate 1 gram tablet 1 g PO TID PRN (Reason: constipation) Rx Instructions: 1 g orally Take on an empty stomach. Hour before meals-lunch and dinner; do not take within 2 hours before or after lithium metoclopramide HCl [Reglan] 10 mg tablet 10 mg PO Q6H PRN (Reason: nausea and vomiting) Qty: 20 0RF dicyclomine 20 mg tablet 20 mg PO TID PRN (Reason: abdominal pain) Qty: 30 0RF amitriptyline 25 mg tablet 25 mg PO DAILY norgestimate-ethinyl estradiol [Baca-Linyah] 0.25-0.035 mg tablet 1 tab PO DAILY cyanocobalamin (vitamin B-12) 1,000 mcg tablet, sublingual 1,000 mcg sublingual DAILY Qulipta 60 mg tablet 60 mg PO DAILY rizatriptan 10 mg tablet 10 mg PO Q2H PRN (Reason: migraine headache) amlodipine 2.5 mg tablet 2.5 mg PO BID simvastatin 20 mg tablet 20 mg PO QHS pantoprazole 40 mg tablet,delayed release (DR/EC) 40 mg PO DAILY lactulose 10 gram/15 mL solution 30 g PO BID PRN (Reason: constipation) Qty: 473 1RF diphenoxylate-atropine [Lomotil] 2.5-0.025 mg tablet 1 tab PO BID PRN (Reason: diarrhea) Qty: 30 2RF metoclopramide HCl [Reglan] 10 mg tablet 5 mg PO BID Qty: 28 11RF metoprolol tartrate 50 mg tablet 100 mg PO BID Qty: 180 3RF Primary Care Provider: Karuna Lim Referrals: Karuna Lim, CORPORATE EVENTS DIRECTOR-C [Primary Care Provider] - Print Language: Polish Disposition Disposition: Psychiatric Hospital or Unit
[2024-09-27 12:49] VITALS: BP 166/92; PULSE 87; RESP 18; O2SAT 97
[2024-09-27] MEDS: 0.9% Normal Saline (1000mL) 1,000 ML 999 ML IV (12:53)
[2024-09-27 12:59] LABS: Hematocrit 41.1 % (37-47); Hemoglobin 13.5 g/dL (12.0-15.0); Immature Granulocytes Count 0.010 X10^3/uL (0.0-0.0); Mean Corp Hgb Conc 32.8 g/dL (32-36); Mean Corpuscular Volume 82.5 fL (81-99); Mean Platelet Vol. 9.0 fl (6.2-12.0); NRBC Flagged by Analyzer 0 % (0-5); Platelet Count 349 K/mm3 (150-450); RBC Distribution Width CV 13.9 % (11.6-14.6); RBC Distribution Width SD 41.9 fl (35.1-43.9); Red Blood Count 4.98 M/mm3 (4.2-5.4); White Blood Count 5.7 K/mm3 (4.4-11.0)
[2024-09-27 13:17] LABS: Internal QC Validated? YES +Cl - CLEAR BKGD; Pregnancy, Serum, hCG Quali. NEGATIVE Negative; Record Kit Lot#, Serum Preg. 0000962302
[2024-09-27 13:26] LABS: Alcohol, Blood (Medical)-Serum < 10.1 mg/dL (<=10.0)
[2024-09-27 13:27] LABS: AST(SGOT) 53 U/L (<=31); Alanine Aminotransfer ALT/SGPT 82 U/L (<=34); Albumin, Serum 4.0 g/dL (3.5-5.0); Alkaline Phosphatase 71 U/L (35-104); Anion Gap 13 (5-15); BUN 10 mg/dL (4-19); BUN/Creat Ratio 13.6 RATIO (10-20); Calcium,Total 9.8 mg/dL (7.6-11.0); Carbon Dioxide 20.7 mmol/L (21.0-32.0); Chloride 107 mmol/L (98-108); Estimated Creatinine Clearance 154.37 ml/min (50-250); Globulin 3.1 g/dL (2.2-4.2); Glucose 130 mg/dL (70-99); Potassium 3.3 mmol/L (3.3-5.1)
--- OUTSIDE RECORDS SUMMARY | 2024-09-27 13:30 | XMS RPT_ITS | CCD ---
Author Organization [facility] Providers Care Fixture Maker Name Role Phone ORLANDO LEES SR Unavailable Unavailable MARY JANE, ERNETSO Unavailable Unavailable MARY JANE, ERNESTO Unavailable Unavailable RAPACZ, DELMI Unavailable Unavailable RAPACZ, DELMI Unavailable Unavailable MARY JANE, ERNESTO Unavailable Unavailable SOMMER LECHUGA Unavailable Unavailable MARY JANE, ERNESTO Unavailable Unavailable MARY JANE, ERNESTO Unavailable Unavailable Mohan Pacheco Unavailable Unavailable [place], Ernesto Unavailable Unavailable Mary Jane, Ernesto Unavailable Unavailable ROSAS STATON-FISH, VANI Primary Care Physician [facility], Daniel Tierney Primary Care Pro vider [phone] [place] [address], Daniel Tierney Referring Provid er Paul MIXER HELPER, MIXER HELPER-Kimi Le Attending Provider Mary Jane STEVENSON Ernesto D Unavailable Unavailab Crys Barraza Primary Care Provider Mary Jane STEVENSON Ernesto D Unavailable Unavailab Crys Barraza Primary Care Provider [facility], Daniel Tierney Primary Care Pro vider [facility], Daniel Tierney Referring Provid er Paul MIXER HELPER, MIXER HELPER-Kimi Le Attending Provider [phone] [facility], Daniel Tierney Primary Care Pro vider [facility], Daniel Tierney Referring Provid er Paul MIXER HELPER, MIXER HELPER-C Zeus Attending Provider [phone] [facility], Daniel Tierney Primary Care Pro vider [facility], Daniel Tierney Referring Provid er Friend, Dr. Johns Attending Provider [phone] Paul MIXER HELPER, MIXER HELPER-Kimi Le Attending Provider [phone] [facility], [facility] Primary Care Pro vider [facility], [facility] Referring Provid er Friend, Dr. Johns Attending Provider [phone] Friend, Dr. Johns Referring Provider [phone] Friend, Dr. Johns Other Provider [phone] [facility], [facility] Primary Care Pro vider Friend, Dr. Johns Attending Provider [phone] [facility], [facility] Referring Provid er Paul MIXER HELPER, MIXER HELPER-Kimi Le Attending Provider [phone] [facility], [facility] Primary Care Pro vider Friend, Dr. 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 Sarah Purdy Emergency Provider Artis, Dr. Boyle Admit Provider Dr. [place] Wisdom Attending Provider Dr. [place] Wisdom Other Provider Dr. Garrick Mcgowan Attending Provider [phone] Laura Li Attending Provider Unavailable Dr. Laura Li Other Provider Unavailable [facility], [facility] Primary Care Pro vider Dr. Sarah Purdy Emergency Provider Dr. [place] Wisdom Admit Provider Dr. [place] Wisdom Attending Provider Dr. [place] Wisdom Other Provider Dr. Garrick Mcgowan Attending Provider Dr. Laura Li Attending Provider Unavailable Dr. Laura Li Other Provider Unavailable [facility], [facility] Referring Provid er Dr. Andreas Oliva Attending Provider Dr. Hubert Mo Attending Provider Avinash MIXER HELPER, MIXER HELPER-C Naina Primary Care Provider CAL PAYTON Admitting Unavailable CAL PAYTON Attending Unavailable DULCE CHAVEZ Unavailable [facility], [facility] Primary Care Pro vider [facility], [facility] Referring Provid er Dr. Andreas Oliva Attending Provider Dr. Hubert Mo Attending Provider Avinash MIXER HELPER, MIXER HELPER-C Naina Primary Care Provider Ernesto Carter DO Unavailable [facility], [facility] Primary Care Provider Un available [facility], [facility] Referring Provid er [facility], [facility] Primary Care Provider Un available Avinash MIXER HELPER, Naina Unavailable Micah WHITTEN, Crys Navarrete Primary Care Provider Unallocated MD, Noms Provider Primary Care Provi yoli Aleksandra MIXER HELPER, Alisson S Unavailable [phone] BALJITT, ALISSON S Attending Unavailable ALEKSANDRA, ALISSON S Attending Unavailable HUEY CORTES Attending Unavailable JEY JOHNSON Referring Unavaila ble Avinash MIXER HELPER-C, Naina Primary Care Provider Avinash MIXER HELPER-C, Naina Referring Provider Dr. Marco Bartlett MD Attending Provider Carina PACK-CKaruna Attending Provider Dr. Stan Lin DO Referring Provider Dr. Stan Lin DO Emergency Provider Avinash MIXER HELPER-C, Naina Primary Care Provider Dr. Stan Lin DO Attending Provider Mari MIXER HELPER-C, Karina Attending Provider Mari MIXER HELPER-C, Karina Referring Provider Beam MIXER HELPER-C, Zebulun Primary Care Provider Avinash MIXER HELPER-C, Naina Referring Provider Ike MIXER HELPER-C, Shawanda Attending Provider Provider, Ed Physician Emergency Provider Eboni Lim MIXER HELPER-C, Zebuluadalgisa Referring Provider Grayson VARGAS, Dr. Iyer Emergency Provider Avinash MIXER HELPER-C, Naina Primary Care Provider Carina MIXER HELPER-C, Karuna Attending Provider Provider, Ed Physician Attending Provider Eboni Galicia MD, Dr. Iyer Attending Provider Ike MIXER HELPER-C, Shawanda Referring Provider Fannie VARGAS, Dr. Preciado Attending Provider [phone] Marco Bartlett MD Attending Provider Dr. Andreas Oliva DO Attending Provider Hazel STEVENSON, Dr. Johns Referring Provider Avinash MIXER HELPER-C, Naina Primary Care Provider Carina MIXER HELPER-C, Karuna Attending Provider Dr. Stan Lin DO Attending Provider Dr. Stan Lin DO Referring Provider Dr. Stan Lin DO Emergency Provider Mari MIXER HELPER-C, Karina Attending Provider Mari MIXER HELPER-C, Karina Referring Provider Beam MIXER HELPER-C, Zebulun Primary Care Provider Avinash MIXER HELPER-C, Naina Referring Provider Ike MIXER HELPER-C, Shawanda Attending Provider Provider, Ed Physician Attending Provider Eboni abreu Provider, Ed Physician Emergency Provider Eboni abreu Beam MIXER HELPER-C, Zebulun Referring Provider Grayson VARGAS, Dr. Iyer Attending Provider Grayson VARGAS, Dr. Iyer Emergency Provider Ike MIXER HELPER-C, Shawanda Referring Provider Dhruv VARGAS, Dr. Lara Attending Provider Fannie VARGAS, Dr. Preciado Attending Provider [phone] Hazel STEVENSON, Dr. Johns Attending Provider Hazel STEVENSON, Dr. Johns Referring Provider Avinash MIXER HELPER-C, Naina Attending Provider Sarah STEVENSON, Dr. Strange Emergency Provider Avinash MIXER HELPER-C, Naina Primary Care Provider Delia STEVENSON, Dr. Pierce Attending Provider Delia STEVENSON, Dr. Pierce Emergency Provider Carina MIXER HELPER-C, Zebulun Attending Provider Avinash MIXER HELPER-C, Naina Attending Provider Sarah STEVENSON, Dr. Strange Emergency Provider BENDARAM, JEY LAGUNA Attending Unavaila ble KIBERA, PERIS Referring Unavailable LAURA CARSON Attending Unavailable BENDARAM, JEY LAGUNA Referring Unavaila ble BENDARAM, JEY LAGUNA Attending Unavaila ble BENDARAM, JEY LAGUNA Referring Unavaila ble CARISSA SHERWOOD Attending Unavailable BENDARAM, JEY LAGUNA Attending Unavaila ble BENDARAM, JEY LAGUNA Referring Unavaila ble BENDARAM, JEY LAGUNA Attending Unavaila ble KIBERA, PERIS Referring Unavailable LAURA CARSON Attending Unavailable Beam MIXER HELPER-C, Zebulun Primary Care Provider Sarah STEVENSON, Dr. Strange Attending Provider Thiago VARGAS, Rodolfo Emergency Provider Mari MIXER HELPER, Karina Attending Unavailable Mari MIXER HELPERKarina Referring Unavailable Beam VSC, Zebulun Primary Care Unavailable Avinash VSC, Naina Primary Care Unavailabl e Stan Lin Attending Unavailable Beam VSC, Zebulun Primary Care Unavailable Ike PACK, Shawanda Attending Unavailable Shawanda Ramires NP Referring Unavailable Beam VSC, Zebulun Primary Care Unavailable Beam VSC, Zebulun Attending Unavailable Avinash VSC, Naina Primary Care Unavailabl e Avinash VSC, Naina Referring Unavailabl e Avinash VSC, Naina Attending Unavailabl e Stan Lin Referring Unavailable Stan Lin Attending Unavailable Avinash VSC, Naina Primary Care Unavailabl e Avinash VSC, Naina Primary Care Unavailabl e Paolo Weems Attending Unavailable Avinash VSC, Naina Referring Unavailabl e Avinash VSC, Naina Primary Care Unavailabl e Friend, Andreas Attending Unavailable Avinash VSC, Naina Primary Care Unavailabl e Friend, Andreas Attending Unavailable Friend, Andreas Referring Unavailable Beam VSC, Zebulun Primary Care Unavailable Jaylon Galicia Attending Unavailable Avinash VSC, Naina Primary Care Unavailabl e Avinash VSC, Naina Referring Unavailabl e Araceli Rosas NP Attending Unavailable Beam VSC, Zebulun Attending Unavailable Avinash VSC, Naina Primary Care Unavailabl e Avinash VSC, Naina Primary Care Unavailabl e Friend, Andreas Attending Unavailable Friend, Andreas Referring Unavailable Avinash VSC, Naina Primary Care Unavailabl e Friend, Andreas Attending Unavailable Friend, Andreas Referring Unavailable Beam VSC, Zebulun Referring Unavailable Beam VSC, Zebulun Attending Unavailable Beam VSC, Zebulun Primary Care Unavailable Beam VSC, Zebulun Primary Care Unavailable Alexandr Smith Attending Unavailable Beam VSC, Zebulun Primary Care Unavailable Rodolfo Das Attending Unavailable Beam VSC, Zebulun Primary Care Unavailable Shawanda Ramires NP Referring Unavailable Marco Bartlett Attending Unavailable Beam VSC, Zebulun Primary Care Unavailable Friend, Andreas Referring Unavailable Friend, Andreas Attending Unavailable Beam VSC, Zebulun Primary Care Unavailable Avinash VSC, Naina Attending Unavailabl e Beam VSC, Zebulun Attending Unavailable Avinash VSC, Naina Primary Care Unavailabl e Avinash VSC, Naina Primary Care Unavailabl e Friend, Andreas Attending Unavailable Friend, Andreas Referring Unavailable Beam VSC, Zebulun Referring Unavailable Beam VSC, Zebulun Primary Care Unavailable Friend, Andreas Attending Unavailable Beam VSC, Zebulun Primary Care Unavailable Friend, Andreas Attending Unavailable Avinash VSC, Naina Primary Care Unavailabl e Avinash VSC, Naina Referring Unavailabl e Radha Jang Attending Unavailable Avinash VSC, Naina Referring Unavailabl e Bryson Gonsalves NP Attending Unavailable Avinash VSC, Naina Primary Care Unavailabl e Avinash VSC, Naina Primary Care Unavailabl e Avinash VSC, Naina Referring Unavailabl e Marco Bartlett Attending Unavailable Avinash VSC, Naina Primary Care Unavailabl e [facility], Daniel Tierney Referring Unavailable Zeus Miller NP Attending Unavailable Avinash VSC, Naina Referring Unavailabl e Avinash VSC, Naina Primary Care Unavailabl e Andreas Oliva Attending Unavailable FriendAndreas Consulting Unavailable Beam VSC, Zebulun Primary Care Unavailable Ozzy Greco Attending Unavailable Shawanda Ramires NP Referring Unavailable Avinash VSC, Naina Primary Care Unavailabl e Avinash VSC, Naina Referring Unavailabl e Jazmine Barker Attending Unavailable Avinash VSC, Naina Referring Unavailabl e Shawanda Ramires NP Attending Unavailable Beam VSC, Zebulun Primary Care Unavailable Beam VSC, Zebulun Primary Care Unavailable Avinash VSC, Naina Referring Unavailabl e FriendAndreas Attending Unavailable Beam VSC, Zebulun Primary Care Unavailable Beam VSC, Zebulun Referring Unavailable Shawanda Ramires NP Attending Unavailable Avinash VSC, Naina Primary Care Unavailabl e Friend, Andreas Attending Unavailable Friend, Andreas Referring Unavailable Beam VSC, Zebulun Primary Care Unavailable Shawanda Ramires NP Attending Unavailable Shawanda Ramires NP Referring Unavailable Beam VSC, Zebulun Primary Care Unavailable Provider, Ed Physician Attending Unavailab le Beam VSC, Zebulun Attending Unavailable Avinash VSC, Naina Primary Care Unavailabl e Allergies Allergy Classification Reported Allergen(s) Allergy Type Date of Onset Reaction(s) Facility (20 sources) escitalopram; Translations: [ESCITALOPRAM OXALATE] Drug Allergy 07-15-19 17 Mental Status Change [facility] Repository (20 sources) lactase; Translations: [LACTASE] Drug Allergy 09-12-19 12 Diarrhea, GI Upset [facility] Repository (2 sources) ondansetron; Translations: [ONDANSETRON HCL] Drug Allergy 07-15-19 17 AOF [facility] Repository (20 sources) Seasonal allergy; Translations: [SEASONAL ALLERGIES] Propensity to adverse reactions (disorder) 12-03-19 13 Cough [facility] Repository (1 source) GLUTEN MEAL; Translations: [GLUTEN MEAL] Propensity to adverse reactions to drug (disorder) 07-15-19 17 [facility] Repository (20 sources) Escitalopram; Translations: [escitalopram] Drug Allergy 07-15-19 17 Other: See Comments [facility] Comment on above: increased si (20 sources) Ondansetron; Translations: [ondansetron] Drug Allergy 07-15-19 17 Anaphylaxis, Other: See Comments [facility] (20 sources) Pollen; Translations: [POLLEN EXTRACTS] Allergy to substance 12-10-19 21 Hives, Intolerance [facility] (20 sources) Ondansetron; Translations: [ONDANSETRON (PF) IN DEXTROSE] Drug Allergy 08-22-19 17 Swelling, GI Upset [facility] (13 sources) Tricyclic Compounds Drug Intolerance 08-22-19 Other: See Comments [facility] (20 sources) Gluten Flour; Translations: [GLUTEN FLOUR] Food Intolerance 08-22-19 17 Diarrhea [facility] (20 sources) metFORMIN; Translations: [METFORMIN] Drug Allergy 02-28-19 23 Diarrhea, GI Upset [facility] (20 sources) broccoli allergenic extract; Translations: [BROCCOLI] Drug Allergy 04-08-19 24 Diarrhea [facility] Repository (20 sources) cauliflower allergenic extract; Translations: [CAULIFLOWER] Drug Allergy 04-08-19 24 Diarrhea [facility] Repository (20 sources) tomato allergenic extract; Translations: [TOMATO] Drug Allergy 04-08-19 24 GI Upset [facility] Repository (14 sources) Tricyclic Antidepressants And Tricyclic Compounds; Translations: [TRICYCLIC ANTIDEPRESSANTS AND TRICYCLIC COMPOUNDS] Drug Intolerance 08-22-19 Other: See Comments [facility] (1 source) Escitalopram Drug Allergy 09-22-19 [facility] Repository (1 source) metFORMIN Drug Allergy 09-22-19 [facility] Repository (1 source) Ondansetron Drug Allergy 09-22-19 [facility] Repository (1 source) Pollen Drug allergy (disorder) 09-22-19 [facility] Repository Medications Current Medications Medication Drug [...] oral tablet (20 sources) Dihydropyridine Calcium Channel Ardha Start: 09-04-2024 take 1 tablet by mouth twice daily Amlodipine 2.5 mg tablet Active 2.5 mg PO TWICE A DAY September 04, 2024 12:00am Start: 06-10-2024 End: 07-29-2024 Amlodipine 2.5 mg tablet Discontinued 2.5 mg PO .COMPLEX 60 June 10, 2024 12:00am July 29, 2024 5:00pm 2.5 mg orally twice daily (bp too low when 5mg taken all at once); Start: 06-10-2024 End: 09-04-2024 take 1 tablet by mouth once daily Amlodipine 2.5 mg tablet Discontinued 2.5 mg PO daily 60 July 29, 2024 5:00pm September 04, 2024 9:48pm Start: 05-05-2024 End: 05-29-2024 take 5 mg by mouth once daily Amlodipine 10 mg tablet Discontinued 5 mg PO daily 90 3 May 05, 2024 10:22am May 29, 2024 2:37pm Start: 04-21-2024 End: 06-02-2024 take 2.5 mg by mouth once daily Amlodipine 10 mg table t Discontinued 2.5 mg PO daily May 29, 2024 2:36pm June 02, 2024 12:02pm Start: 04-21-2024 End: 05-05-2024 take 1 tablet by mouth once daily Amlodipine 10 mg tablet Discontinued 10 mg PO daily 90 3 April 21, 2024 1:00am May 05, 2024 [...] mg/ml prefilled syringe (20 sources) Start: 09-26-2022 Aripiprazole Lauroxil (Aristada) 441 mg/1.6 mL suspension,extended rel syring Active 441 mg IM .COMPLEX December 18, 2022 12:00am mental health 441 mg intramuscularly Q28D; due first week of september Start: 09-26-2022 ARIPiprazole l auroxil ER (ARISTADA) 441 mg/1.6 mL injection Inject 441 mg intramuscularly every 4 weeks. 09/26/2022 Active Start: 09-26-2022 Aristada 441 M G/1.6ML injection Inject 441 mg into the shoulder, thigh, or buttocks 1 (one) time. 09/26/2022 Active Atogepant (4 sources) Start: 09-04-2024 take 1 tablet by vaughn th once daily Atogepant (Atogepant 60 Mg Tablet) 60 mg tablet Active 60 mg PO DAILY September 04, 2024 12:00am Start: 09-04-2024 atogepant (QULIPTA) 60 mg tablet (6 sources) Start: 05-20-2024 take 1 tablet by mouth once daily atogepant (QULIPTA) 60 mg tablet Take 60 mg by mouth once daily. 05/20/2024 Active atropine sulfate 0.025 mg / diphenoxylate hydrochloride 2.5 mg oral tablet (16 sources) Anticholinergic, Cholinergic Muscarinic Antagonist, Antidiarrheal Start: 10-29-2023 Diphenoxylate-At ropine (Lomotil) 2.5-0.025 mg tablet Active 1 {tbl} PO TWICE A DAY as needed for diarrhea October 29, 2023 12:00am Start: 10-29-2023 cholecalciferol 0.025 mg oral tablet (20 sources) Vitamin D Start: 12-18-2022 take 1 tablet by mouth once daily Cholecalciferol (Vitamin D3) (Vitamin D3) 25 mcg (1,000 unit) tablet Active 25 ug PO DAILY December 18, 2022 12:00am vitamin Start: 12-18-2022 take 1 tablet by vaughn th once daily cholecalciferol (VITAMIN D3) 1,000 unit tab tablet Take 1,000 Units by mouth once daily. 01/14/2024 Active Start: 01-28-2020 End: 01-24-2024 take 1 capsule by mouth every week cholecalciferol, Vitamin D3, (VITAMIN D3) 1,250 mcg (50,000 unit) cap capsule Take 1 capsule by mouth one time a week. 01/28/2020 01/24/2024 Discontinued (Course of therapy completed) Comment on above: Take 1 capsule by mo [facility] one time a week. dicyclomine hydrochloride 20 mg oral tablet (20 sources) Anticholinergic Start: 05-09-19 take 1 tablet by mouth three times daily as needed for pain Dicyclomine 20 mg tablet Active 20 mg PO THREE TIMES A DAY as needed for abdominal pain 30 May 08, 2024 5:16pm Start: 09-24-2023 End: 10-10-2023 take 2 capsules by mouth every six hours as needed Dicyclomine 10 mg capsule Discontinued 20 mg PO EVERY 6 HOURS NEEDED as needed for abdominal discomfort 20 September 24, 2023 2:26am October 10, 2023 1:31pm Start: 08-11-2022 End: 10-03-2022 take 1 capsule by mouth twice daily as needed for pain Dicyclomine 10 mg capsule Discontinued 10 mg PO TWICE A DAY as needed for abdominal pain 60 August 11, 2022 12:00am October 03, 2022 [...] 1 tablet by mouth every other day Ferrous Sulfate (Ferosul) 325 mg (65 mg iron) tablet Active 325 mg PO EVERY OTHER DAY January 24, 2022 1:00am supplement Comment on above: Take 325 mg by [...] / neomycin 3.5 mg/ml / polymyxin b 81310 unt/ml otic suspension (1 source) Aminoglycoside Antibacterial, Polymyxin-class Antibacterial, Corticosteroid Start: 01-25-2024 End: 01-30-2024 bsmisksa-jetvvpogh-ykjqdzepy isone (CORTISPORIN) 3.5-10,000-1 mg/mL-unit/mL-% otic suspension Indications: Acute otitis media, left Use 3 Drops in the left ear four times daily for 5 days. 10 mL 01/25/2024 01/30/2024 Active hyoscyamine sulfate 0.125 mg oral tablet (20 sources) Start: 10-10-2023 End: 01-24-2024 Hyoscyamine Sulfate 0.125 mg tablet Active 0.125 mg PO 2 to 4 times per day as needed for dyspepsia 30 0 October 10, 2023 12:00am imipramine hydrochloride 25 mg oral tablet (20 sources) Tricyclic Antidepressant Start: 12-18-2022 take 1 tablet by mouth once daily Imipramine Hcl 25 mg tablet Active 25 mg PO DAILY December 18, 2022 12:00am mental health Amaya (1 source) Start: 12-14-2020 lithium 300 mg oral capsule Dose : 300 mg = 1 cap(s), Oral, BID, 0 Refill(s) Start Date: 12/14/20 Status: Ordered lithium carbonate 600 mg oral capsule (20 sources) Start: 01-24-2022 take 1 capsule by mouth at bedtime Amaya Carbonate 600 mg Capsule Active 600 mg PO AT BEDTIME January 24, 2022 1:00am mental health Start: 01-24-2022 End: 12-12-2021 take 600 mg by mouth at bedtime Amaya Carbonate Acti ve 600 MG PO AT BEDTIME January 24, 2022 1:00am Start: 01-24-2022 take 600 mg by mouth at bedtim e Amaya Carbonate Active 600 MG PO AT BEDTIME January 24, 2022 12:00am Start: 04-05-2017 take 1 capsule by mo uth once daily at bedtime lithium carbonate 600 mg capsule Take 600 mg by mouth daily at bedtime. 04/05/2017 Active Start: 04-05-2017 take 1 capsule by mo uth once daily Amaya Carbonate 300 MG capsule Active 300 mg PO DAILY April 05, 2017 1:00am Bipolar Start: 04-05-2017 take 1 capsule by mo [...] swallowing Mecobalamin (Vitamin B12) 1,000 mcg lozenge (15 sources) Start: 03-20-2023 take 1000 ug by [...] four times daily. Active Miscellaneous [facility] Supply [facility] (10 sources) Start: 05-29-2024 [facility] .Route 1 May 29, 2024 12:00am Syncope Syncope and collapse As directed Start: 05-29-2024 [facility] Active 0 .Route 1 May 29, [...] daily for 5 days. polyethylene glycol 3350 14022 mg powder for oral solution (20 sources) Osmotic Laxative Start: 4 polyethylene glycol 3350 17 gram/dose powder MIX 4 GRAMS WITH LIQUID AND DRINK ONCE DAILY 10/17/2023 Active Start: 10-17-2023 End: 10-17-2023 Polyethylene Glycol 3350 (Mi ralax) 17 gram/dose powder Active 4 g PO ONCE as needed for constipation October 17, 2023 12:00am Start: 10-17-2023 End: 10-17-2023 take 17 g by mouth once daily polyethylene glycol 3350 17 gram/dose powder Take 17 g by mouth once daily. 10/17/2023 Active rizatriptan 10 mg oral tablet (20 sources) [...] Start: 04-14-2023 take 1 tablet by mouth at bedtime Simvastatin 20 mg tablet Active 20 mg PO AT BEDTIME June 03, 2023 12:00am 24 hr divalproex sodium 500 mg extended [...] 2015 12:00am December 09, 2020 10:08am control (6 sources) Start: 07-08-2024 End: 09-04-2024 control Discontinued [...] tablet Discontinued 500 mg PO Q12H 20 0 January 24, 2022 1:00am April 04, 2022 [...] 10:33pm reflux fluconazole 150 mg oral tablet (16 sources) Azole Antifungal Start: 4 End: 4 [...] A DAY as needed for itching 28.4 1 October 03, 2022 12:00am December 18, 2022 [...] for constipation 473 September 28, 2023 12:00am Sopzeo-Xxagxkaz-Qykwwcd (Zenpep) 40,000-126,000- 168,000 unit capsule,delayed release(DR/EC) (20 sources) Start: 03-16-2022 End: 06-06-2022 take 3 capsules by mouth three times daily at mealtime Fsvrux-Ipzzfpuq-Qayycoa (Zenpep) 40,000-126,000- 168,000 unit capsule,delayed release(DR/EC) Discontinued 3 NMA PO THREE TIMES A DAY 189 0 March 16, 2022 1:00am June 06, 2022 11:02am take three capsules with meals Start: 03-16-2022 End: 06-06-2022 take 3 capsules by mouth three times daily at mealtime Zhtogr-Vqnvfgfg-Mzaqahn (Zenpep) 40,000-126,000- 168,000 unit capsule,delayed release(DR/EC) Discontinued 3 NMA PO THREE TIMES A DAY 189 March 16, 2022 1:00am June 06, 2022 11:02am take three capsules with meals Start: 03-16-2022 End: 06-06-2022 take 3 capsules by mouth three times daily at mealtime [employer]ymmbh-Tvqelywi-Qznzouc (Zenpep) 40,000-126,000- 168,000 unit capsule,delayed release(DR/EC) Discontinued 3 CAP PO THREE TIMES A DAY 189 March 16, 2022 12:00am June 06, 2022 10:02am take three capsules with meals Start: 03-16-2022 End: 06-06-2022 take 3 capsules by mouth three times daily at mealtime Owvspq-Dlwwflut-Nftmzvs (Zenpep) 40,000-126,000- 168,000 unit capsule,delayed release(DR/EC) Discontinued 3 CAP PO THREE TIMES A DAY 189 March 16, 2022 1:00am June 06, 2022 11:02am take three capsules with meals Start: 03-16-2022 take 3 capsules by m outh three times daily at mealtime Hecuah-Lqpxuwls-Ydconrj (Zenpep) 40,000-126,000- 168,000 unit capsule,delayed release(DR/EC) Active [...] ta blet Discontinued 10 mg PO daily October 03, 2022 12:00am December 18, 2022 [...] sources) beta-Adrenergic Radha Start: 10-19-2023 End: 07-21-2024 take 2 tablets by mouth twice daily Metoprolol Tartrate 50 mg tablet Discontinued 100 mg PO TWICE A DAY 180 June 23, 2024 4:57pm July 21, 2024 5:26pm Start: 10-19-2023 take 1 tablet by vaughn [...] Discontinued 500 mg PO TWICE A DAY 14 September 24, 2023 12:00am October 19, 2023 9:18am Start: 01-24-2022 End: 04-04-2022 take 1 tablet by mouth every eight hours Metronidazole 500 mg tablet Discontinued 500 mg PO Q8H 30 10 0 January 24, 2022 1:00am April 04, 2022 [...] Dose : 25 mg = 1 supp, WA, q6hr, PRN as needed for nausea/vomiting, # 12 supp, 0 Refill(s) Start Date: 05/30/16 Stop Date: 06/02/16 Status: Ordered Comment on above: Take 1 tablet by vaughn th every 6 hours as needed. propranolol hydrochloride 40 mg oral tablet (3 sources) beta-Adrenergic Radha Start: 10-31-19 End: 12-13-19 22 take 1 tablet by mouth twice daily [...] Date Documented Da te Episodic/Chronic Abdominal pain (20 sources) Left upper quadrant pain; Translations: [Left upper quadrant pain] Onset: 11-13-2023 10-04-2023 Episodic Anxiety disorders (14 sources) Anxiety; Translations: [Anxiety disorder, unspecified] Onset: 05-16-2024 05-16-2024 Chronic Blindness and vision defects (20 sources) Diplopia; Translations: [Other subjective visual disturbances] Onset: 08-21-2016 08-21-2016 Episodic Conditions associated with dizziness or vertigo (2 [...] Onset: 08-21-2016 08-21-2016 Chronic Headache; including migraine (20 sources) Headache; Translations: [Headache] Onset: 08-21-2016 08-21-2016 Episodic Headache; including migraine (1 source) Headache; including [...] and US:nl naproxen Miscellaneous mental health disorders (12 sources) Binge eating disorder; Translations: [Binge eating disorder, moderate] Onset: 05-16-2024 05-16-2024 Chronic Mood disorders (20 sources) Bipolar I disorder; Translations: [Bipolar disorder, unspecified] Onset: 05-20-2016 08-21-2016 Chronic Noninfectious gastroenteritis (20 sources) Colitis; Translations: [Noninfective gastroenteritis and colitis, unspecified] 02-01-2022 Episodic Other bone disease and musculoskeletal deformities (9 sources) Juvenile osteochondrosis of spine; 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, site unspecified] Onset: 01-31-2012 05-16-2024 Chronic Other connective tissue disease (1 source) Pain in left foot; Translations: [Pain in left foot] 01-07-2020 Episodic Other connective tissue disease (16 sources) Pain in right arm; Translations: [Pain in right arm] 12-05-2023 Episodic Other disorders of stomach and duodenum (20 sources) Gastroparesis syndrome; Translations: [Gastroparesis] Onset: 05-16-2024 06-06-2022 Episodic Other disorders of stomach and duodenum [...] with diarrhea] 05-16-2024 Chronic Other gastrointestinal disorders (9 sources) Irritable bowel syndrome; Translations: [Irritable bowel syndrome without diarrhea] Onset: 11-26-2015 05-16-2024 Chronic Other gastrointestinal disorders (20 sources) Diarrhea; Translations: [Diarrhea, unspecified] 01-08-2019 Episodic Other gastrointestinal disorders (16 sources) Mass of abdominal cavity structure; Translations: [Intra-abdominal and pelvic swelling, mass and lump, unspecified site] 10-02-2023 Episodic Other gastrointestinal disorders (3 sources) Acute diarrhea; Translations: [Diarrhea, unspecified] 09-21-2024 Episodic Other injuries and conditions due to external causes (16 sources) Open wound; Translations: [Other injury of unspecified body region, initial encounter] 12-05-2023 Episodic Other liver diseases (20 sources) Steatosis of liver; Translations: [Fatty (change of) liver, not elsewhere classified] Onset: 02-09-2023 01-30-2023 Chronic Other liver diseases (6 sources) Fatty (change of) liver, not elsewhere classified; Translations: [Other chronic nonalcoholic liver disease] Onset: 05-16-2024 01-30-2023 Chronic Other nervous system disorders (16 sources) Neuropathy; Translations: [Polyneuropathy, unspecified] 12-05-2023 Chronic Other nervous system disorders (1 source) Loss of sense of smell; Translations: [Anosmia] Episodic Other nervous system disorders (20 sources) Paresthesia of right lower limb; Translations: [Paresthesia of skin] 10-13-2020 Episodic Other nervous system disorders (10 sources) Paresthesia; Translations: [Paresthesia of skin] 06-03-2024 [...] Chronic Other nutritional; endocrine; and metabolic disorders (19 sources) Obesity; Translations: [Obesity, unspecified] 03-20-2023 Chronic [...] conditions (not mental disorders or infectious disease) (17 sources) CT of abdomen abnormal; Translations: [Abnormal findings on diagnostic imaging of other abdominal regions, including retroperitoneum] Onset: 08-13-2024 10-04-2023 Episodic Other skin disorders (20 sources) Hirsutism; Translations: [Hirsutism] Onset: 10-17-2023 08-08-2021 Episodic Comment on above: spirolactone Other skin disorders (6 sources) Hidradenitis suppurativa; [...] wall of thorax, initial encounter] 03-26-2019 Episodic Suicide and intentional self-inflicted injury (20 sources) Suicidal thoughts; Translations: [Suicidal ideations] Onset: 06-19-2016 04-07-2023 Episodic Syncope (20 sources) Syncope; Translations: [Syncope and collapse] Onset: 09-10-2024 12-09-2022 Episodic Unclassified (2 sources) Binge eating disorder, moderate; Translations: [Binge eating disorder, moderate] Onset: 05-16-2024 Unclassified (1 source) Obesity, Class III, BMI 40-49.9 (morbid obesity) (HCC); Translations: [Obesity, Class III, BMI 40-49.9 (morbid obesity) (HCC)] Onset: 10-26-2023 Unclassified (1 source) PCOS Onset: 07-15-2024 Viral infection (20 sources) Disease caused by 2019-nCoV; Translations: [COVID-19] 05-28-2020 Episodic Past or Other Problems Problem Classification Problem Date Documented Da te Episodic/Chronic Cardiac dysrhythmias (20 sources) Palpitations; Translations: [Palpitations] Onset: 07-11-2023 05-16-2024 Episodic Diabetes mellitus without complication (9 sources) Prediabetes; Translations: [Prediabetes] Onset: 05-16-2024 Resolved: 05-16-2024 05-16-2024 Episodic Genitourinary symptoms and ill-defined conditions (1 source) Dysuria; Translations: [Dysuria] Onset: 03-07-2024 Episodic Nausea and vomiting (20 sources) Nausea and vomiting; Translations: [Nausea with vomiting, unspecified] Onset: 05-16-2024 Episodic Nonmalignant breast conditions (17 sources) Abscess of breast; Translations: [Abscess of the breast and nipple] Onset: 02-22-2024 12-05-2023 Episodic Nonspecific chest pain (20 sources) Chest pain; Translations: [Chest pain, unspecified] Onset: 05-20-2024 01-23-2022 Episodic Other aftercare (2 sources) Other mcfp (current) drug therapy; Translations: [Encounter for long-term (current) use of other medications] Onset: 12-05-2023 Episodic Other connective tissue disease (1 source) Pain in right arm; Translations: [Pain in right arm] Onset: 12-18-2023 Episodic Other gastrointestinal disorders (1 source) Diarrhea, unspecified; Translations: [Diarrhea, unspecified] Onset: 05-02-2024 Episodic Other skin disorders (18 sources) Hirsutism; Translations: [Hirsutism] Onset: 10-17-2023 Episodic Other skin disorders (9 sources) Hidradenitis; Translations: [Hidradenitis suppurativa] Onset: 05-16-2024 05-16-2024 Episodic Other skin disorders (1 source) Localized swelling, mass and lump, left upper limb; Translations: [Localized swelling, mass and lump, left upper limb] Onset: 12-13-2023 Episodic Screening and history of mental health and substance abuse codes (10 sources) H/O: psychiatric disorder; Translations: [Personal history of other mental and behavioral disorders] Onset: 05-16-2024 05-16-2024 Episodic Results Test Name Value Interpretation Reference Range Facility Gastroenterology Visit Repor ton 09-25-2024 Gastroenterology Visit Report Normal [facility] Absolute lymphocyte countOrd ered By: India Crawford on 09-21-2024 Lymphocytes Auto (Unsp spec) [#/Vol] 2.56 10*3/uL 0.83-4.51 [facility] Absolute neutrophil countOrd ered By: India Crawford on 09-21-2024 Neutrophils (Bld) [#/Vol] 3.5 10*3/uL 2.0-7.7 [facility] Anion gap in Serum or Plasma Ordered By: India Crawford on 09-21-2024 Anion gap [Moles/Vol] 13 mmol/L 5-15 [facility] Automated lymphocyte count a s percentage of total leukocytesOrdered By: Indiamer Crawford on 09-21-2024 Lymphocytes/100 WBC Auto (Unsp spec) 37.3 % 19- [facility] BUN/creatinine ratioOrdered By: India Crawford on 09-21-2024 Urea nitrogen/Creatinine [Mass ratio] 16.6 mg/mg 10-20 [facility] Basophil percentageOrdered B y: India Crawford on 09-21-2024 Basophils/100 WBC (Bld) 0.6 % 0-1 [facility] Bilirubin, totalOrdered By: India Crawford on 09-21-2024 Bilirubin [Mass/Vol] 0.38 mg/dL 0.00-1.30 [facility] CBC W/Diff, Automatedon Absolute Lymph 2.56 X10 3/uL Normal 0.83-4.51 [facility] Comment on above: Performed By: #### L 100.0100 ####[facility] [address] [place], [address] Absolute Neut 3.5 X10 3/uL Normal 2.0-7.7 [facility] Comment on above: Performed By: #### L 100.0100 ####[facility] [address] [place], [address] Basophils/100 WBC (Bld) 0.6 % Normal 0-1 [facility] Comment on above: Performed By: #### L 100.0100 ####[facility] [address] [place], [address] Eosinophils/100 WBC (Bld) 1.6 % Normal 0-5 [facility] Comment on above: Performed By: #### L 100.0100 ####[facility] [address] [place], [address] Erythrocyte distribution width (RBC) [Ratio] 14.2 % Normal 11.6-14.6 [facility] Comment on above: Performed By: #### L 100.0100 ####[facility] [address] [place], [address] Hematocrit (Bld) [Volume fraction] 39.6 % Normal 37-47 [facility] Comment on above: Performed By: #### L 100.0100 ####[facility] [address] [place], [address] Hemoglobin (Bld) [Mass/Vol] 12.6 g/dL Normal 12.0-15.0 [facility] Comment on above: Performed By: #### L 100.0100 ####[facility] [address] [place], [address] IG% 0.100 Normal 0.0-0.9 [facility] Comment on above: Result Comment: IG% - Immature Granulocytes (promyelocytes, myelocytes andmetamyelocytes) > 1% indicates that a LEFT SHIFT is Present. Performed By: #### L 100.0100 ####[facility] [address] [place], [address] Lymphocytes/100 WBC (Bld) 37.3 % Normal 19-41 [facility] Comment on above: Performed By: #### L 100.0100 ####[facility] [address] [place], [address] MCH (RBC) [Entitic mass] 26.7 pg Low 27.0-32.0 [facility] Comment on above: Performed By: #### L 100.0100 ####[facility] [address] [place], [address] MCHC (RBC) [Mass/Vol] 31.8 g/dL Low 32-36 [facility] Comment on above: Performed By: #### L 100.0100 ####[facility] [address] [place], [address] MCV (RBC) [Entitic vol] 83.9 fL Normal 81-99 [facility] Comment on above: Performed By: #### L 100.0100 ####[facility] [address] [place], [address] Monocytes/100 WBC (Bld) 9.8 % Normal 0-10 [facility] Comment on above: Performed By: #### L 100.0100 ####[facility] [address] [place], [address] Neutrophils/100 WBC (Bld) 50.6 % Normal 47-70 [facility] Comment on above: Performed By: #### L 100.0100 ####[facility] [address] [place], [address] Nucleated RBC (Bld) [#/Vol] 0 10*3/uL Normal 0-5 [facility] Comment on above: Performed By: #### L 100.0100 ####[facility] [address] [place], [address] Platelet mean volume (Bld) [Entitic vol] 9.1 fL Normal 6.2-12.0 [facility] Comment on above: Performed By: #### L 100.0100 ####[facility] [address] [place], [address] Platelets (Bld) [#/Vol] 376 10*3/uL Normal 150-450 [facility] Comment on above: Performed By: #### L 100.0100 ####[facility] [address] [place], [address] RBC (Bld) [#/Vol] 4.72 10*6/uL Normal 4.2-5.4 [facility] Comment on above: Performed By: #### L 100.0100 ####[facility] [address] [place], [address] RDW SD 43.8 fl Normal 35.1-43.9 [facility] Comment on above: Performed By: #### L 100.0100 ####[facility] [address] [place], [address] WBC (Bld) [#/Vol] 6.9 10*3/uL Normal 4.4-11.0 [facility] Comment on above: Performed By: #### L 100.0100 ####[facility] [address] [place], [address] CDIFF (PCR)on 09-21-2024 CDIFF Normal [facility] Comment on above: Performed By: #### M 100.6796 ####[facility] [address] [place], [address] Carbon dioxide, total [Moles /volume] in Central venous bloodOrdered By: India Crawford on 09-21-2024 CO2 [Moles/Vol] 21.8 mmol/L 21.0-32.0 [facility] Chloride assayOrdered By: Shivani Crawford on 09-21-2024 Chloride [Moles/Vol] 105 mmol/L 98-108 [facility] Clostridium difficile detect ion by polymerase chain reactionOrdered By: India Crawford on 09-21-2024 C. difficile DNA DAMARIS+probe Ql (Unsp spec) [facility] Comprehensive Metabolic Prof ilon 09-21-2024 Albumin [Mass/Vol] 4.0 g/dL Normal 3.5-5.0 [facility] Comment on above: Performed By: #### L 500.4050 ####[facility] [address] [place], [address] Albumin/Globulin [Mass ratio] 1.3 {ratio} Normal 0.9-2.4 [facility] Comment on above: Performed By: #### L 500.4050 ####[facility] [address] [place], [address] ALK PHOS 65 U/L Normal 35-104 [facility] Comment on above: Performed By: #### L 500.4050 ####[facility] [address] [place], [address] ALT [Catalytic activity/Vol] 57 U/L High <=34 [facility] Comment on above: Performed By: #### L 500.4050 ####[facility] [address] [place], [address] AST [Catalytic activity/Vol] 51 U/L High <=31 [facility] Comment on above: Performed By: #### L 500.4050 ####[facility] [address] [place], [address] Bilirubin [Mass/Vol] 0.38 mg/dL Normal 0.00-1.30 [facility] Comment on above: Performed By: #### L 500.4050 ####[facility] [address] [place], [address] BUN/CRE 16.6 RATIO Normal 10-20 [facility] Comment on above: Performed By: #### L 500.4050 ####[facility] [address] [place], [address] Calcium [Mass/Vol] 9.2 mg/dL Normal 7.6-11.0 [facility] Comment on above: Performed By: #### L 500.4050 ####[facility] [address] [place], [address] Chloride [Moles/Vol] 105 mmol/L Normal 98-108 [facility] Comment on above: Performed By: #### L 500.4050 ####[facility] [address] [place], [address] CO2 [Moles/Vol] 21.8 mmol/L Normal 21.0-32.0 [facility] Comment on above: Performed By: #### L 500.4050 ####[facility] [address] [place], [address] Creatinine [Mass/Vol] 0.60 mg/dL Low 0.70-1.20 [facility] Comment on above: Performed By: #### L 500.4050 ####[facility] [address] [place], [address] ECRCL 196.90 ml/min Normal 50-250 [facility] Comment on above: Performed By: #### L 500.4050 ####[facility] [address] [place], [address] GAP 13 Normal 5-15 [facility] Comment on above: Performed By: #### L 500.4050 ####[facility] [address] [place], [address] GFR/1.73 sq M.predicted among non-blacks MDRD (S/P/Bld) [Vol rate/Area] 126 mL/min/{1.73_m2} Normal >60 [facility] Comment on above: Result Comment: mL/m in/1.73m2 CKD-EPI Creatinine Equation (2020) Performed By: #### L 500.4050 ####[facility] [address] [place], [address] Globulin (S) [Mass/Vol] 3.0 g/dL Normal 2.2-4.2 [facility] Comment on above: Performed By: #### L 500.4050 ####[facility] [address] [place], [address] Glucose [Mass/Vol] 94 mg/dL Normal 70-99 [facility] Comment on above: Performed By: #### L 500.4050 ####[facility] [address] [place], [address] Potassium [Moles/Vol] 3.8 mmol/L Normal 3.3-5.1 [facility] Comment on above: Performed By: #### L 500.4050 ####[facility] [address] [place], [place], [address] Sodium [Moles/Vol] 140 mmol/L Normal 133-145 [facility] Comment on above: Performed By: #### L 500.4050 ####[facility] [address] [facility] [id number] T PROT 7.0 g/dL Normal 5.9-8.4 [facility] Comment on above: Performed By: #### L 500.4050 ####[facility] [address] [place], [address] Urea nitrogen [Mass/Vol] 10 mg/dL Normal 4-19 [facility] Comment on above: Performed By: #### L 500.4050 ####[facility] [address] [place], [place], [address] Emergency Department Summary on 09-21-2024 Emergency Department Summary Normal [facility] Eosinophil percentageOrdered By: India Crawford on 09-21-2024 Eosinophils/100 WBC (Bld) 1.6 % 0-5 [facility] Erythrocyte distribution wid th ratioOrdered By: India Crawford on 09-21-2024 Erythrocyte distribution width (RBC) [Ratio] 14.2 % 11.6-14.6 [facility] Erythrocyte distribution wid th standard deviationOrdered By: India Crawford on 09-21-2024 Erythrocyte distribution width (RBC) [Ratio] 43.8 fl 35.1-43.9 [facility] Glomerular filtration rate ( GFR) estimation/1.73 sq m using serum, plasma, or whole bOrdered By: India Crawford on 09-21-2024 GFR/1.73 sq M.predicted among non-blacks MDRD (S/P/Bld) [Vol rate/Area] 126 mL/min/{1.73_m2} >60 [facility] Comment on above: mL/min/1.73m2 CKD-EP I Creatinine Equation (2020) Hematocrit Auto (Bld) [Volum e fraction]Ordered By: India Crawford on 09-21-2024 Hematocrit (Bld) [Volume fraction] 39.6 % 37-47 [facility] Hemoglobin measurementOrdere d By: India Crawford on 09-21-2024 Hemoglobin (Bld) [Mass/Vol] 12.6 g/dL 12.0-15.0 [facility] Immature granulocytes/100 WB C Auto (Bld)Ordered By: India Crawford on 09-21-2024 Immature granulocytes/100 WBC (Bld) 0.100 % 0.0-0.9 [facility] Comment on above: IG% - Immature Granu locytes (promyelocytes, myelocytes and metamyelocytes) > 1% indicates that a LEFT SHIFT is Present. Laboratory - Chemistry and C hemistry - challengeOrdered By: India Crawford on 09-21-2024 AST [Catalytic activity/Vol] 51 U/L High <32 [facility] MCV (mean corpuscular volume ) determinationOrdered By: India Crawford on 09-21-2024 MCV (RBC) [Entitic vol] 83.9 fL 81-99 [facility] Mean corpuscular hemoglobin (MCH) determinationOrdered By: India Crawford on 09-21-2024 MCH (RBC) [Entitic mass] 26.7 pg Low 27.0-32.0 [facility] Mean corpuscular hemoglobin concentration (MCHC) determinationOrdered By: India Crawford on 09-21-2024 MCHC (RBC) [Mass/Vol] 31.8 g/dL Low 32-36 [facility] Mean platelet volume determi nationOrdered By: India Crawford on 09-21-2024 Platelet mean volume (Bld) [Entitic vol] 9.1 fL 6.2-12.0 [facility] Monocyte percentageOrdered B y: India Crawford on 09-21-2024 Monocytes/100 WBC (Bld) 9.8 % 0-10 [facility] Neutrophil percentageOrdered By: India Crawford on 09-21-2024 Neutrophils/100 WBC (Bld) 50.6 % 47-70 [facility] Nucleated red blood cell per centageOrdered By: India Crawford on 09-21-2024 Nucleated RBC/100 WBC (Bld) [Ratio] 0 % 0-5 [facility] Platelet countOrdered By: Shivani Crawford on 09-21-2024 Platelets (Bld) [#/Vol] 376 10*3/uL 150-450 [facility] Potassium measurement (mass/ volume)Ordered By: India Crawford on 09-21-2024 Potassium (Unsp spec) [Mass/Vol] 3.8 mmol/L 3.3-5.1 [facility] RBC Auto (Bld) [#/Vol]Ordere d By: India Crawford on 09-21-2024 RBC (Bld) [#/Vol] 4.72 10*6/uL 4.2-5.4 [facility] Serum creatinine measurement (mass/volume)Ordered By: India Crawford on 09-21-2024 Creatinine [Mass/Vol] 0.60 mg/dL Low 0.70-1.20 [facility] Serum globulin measurementOr dered By: India Crawford on 09-21-2024 Globulin (S) [Mass/Vol] 3.0 g/dL 2.2-4.2 [facility] Serum glucose measurement (m ass/volume)Ordered By: India Crawford on 09-21-2024 Glucose [Mass/Vol] 94 mg/dL 70-99 [facility] Serum or plasma alanine godinez otransferase (ALT) measurementOrdered By: India Crawford on 09-21-2024 ALT [Catalytic activity/Vol] 57 U/L High <35 [facility] Serum or plasma albumin cherelle urement (mass/volume)Ordered By: India Crawford on 09-21-2024 Albumin [Mass/Vol] 4.0 g/dL 3.5-5.0 [facility] Serum or plasma albumin/glob ulin mass ratioOrdered By: India Crawford on 09-21-2024 Albumin/Globulin [Mass ratio] 1.3 {ratio} 0.9-2.4 [facility] Serum or plasma alkaline rohit sphatase measurementOrdered By: India Crawford on 09-21-2024 ALP [Catalytic activity/Vol] 65 U/L 35-104 [facility] Serum or plasma calcium cherelle urement (mass/volume)Ordered By: India Ty on 09-21-2024 Calcium [Mass/Vol] 9.2 mg/dL 7.6-11.0 [facility] Serum or plasma urea nitroge n measurement (mass/volume)Ordered By: India Ty on 09-21-2024 Urea nitrogen [Mass/Vol] 10 mg/dL 4-19 [facility] Sodium levelOrdered By: India Ty on 09-21-2024 Sodium [Moles/Vol] 140 mmol/L 133-145 [facility] Total proteinOrdered By: Izabella farris Ty on 09-21-2024 Protein [Mass/Vol] 7.0 g/dL 5.9-8.4 [facility] White blood cell (WBC) count Ordered By: Indiamer Crawford on 09-21-2024 WBC (Bld) [#/Vol] 6.9 10*3/uL 4.4-11.0 [facility] -------- MARION GUTIERREZ ([id number]) 1995 F Date Time Provider Department 09/18/24 ARSENIO SOLORIO [facility] During your visit today, we recorded the following information about you: Arsenio Solorio LSW 09/18/2024 11:35 AM Signed Sensitive Note Diabesity AND Endocrinology Metabolic Exercise Noel ([id number]) Qualifying Questionnaire Patient Name: Marion Gutierrez Patient Referred Date: 09/18/2024 Approved or denied: Approved Method of Contact: (home) Provider Action/ FYI: 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 What is your City of Residence? [facility] Sair[address] [facility] [id number] What is your insurance? Payor: [facility] MEDICAID / Plan: [facility] / Product Type: Medicaid / How many people live in your household? 1 What is your household income? $967 monthly $11,604 annually Are there any other factors that would qualify you for this program? n/a Notes: n/a Signature: KANU Helms Patient Name: Marino Gutierrez Date: 09/18/2024 Time: 11:32 AM Pager/Contact #: [phone] During this patient contact I spent approximately 15 minutes in counseling regarding [id number]. Allergies As of Date: 09/18/2024 Noted Allergy [...] by: Mane Bragg, RN - Fully Assessed Prescriptions as of 09/18/2024 [...] Suicidal ideati (more content not 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 Normal [facility] [id number] 09-05-2024 [facility]. COMMENT Normal . [facility] Comment on above: Order Comment: APTIM A ORANGE/[id number] VG Result Comment: Test Ordered: 316004 NuSwab Vaginitis (VG)Test(s) 871649- Atopobium vaginae; 377869- BVAB 2;102338- Megasphaera 1was developed and its performance characteristicsdetermined by [facility]. It has not been cleared or approvedby the Food and Drug Administration.Test(s) 397412-Wgiywfi albicans, DAMARIS; 521353-Wfkvfpq glabrata, NAAwas developed and its performance characteristicsdetermined [...] DAMARIS Negative =G Reference Range: NegativePerformed at: = - Lab06 [address] StreetPedro [place] [id number] Director: Idalia Yoo MD, Phone: [phone] at: [facility] Lab[address] [id number] Director: Neeraj Marte PhD, Phone: [phone] Performed By: #### L 400.0001, L3410.9992, L500.2500, L100.0100, M100.2200 ####[facility] [address] [place], [place], [id number] Lithiumon 09-05-2024 LI 0.53 mmol/L Low 0.60-1.20 [facility] Comment on above: Order Comment: RESUL TS ARE DELAYED DUE TO COSTUME [employer] MANAGER MAINTENANCE/QC TASKS Performed By: #### L 501.9060 ####[facility] [address] [place], [place], [id number] Absolute lymphocyte countOrd ered By: Alexandr Smith on 09-04-2024 Lymphocytes Auto (Unsp spec) [#/Vol] 2.36 10*3/uL 0.83-4.51 [facility] Absolute neutrophil countOrd ered By: Alexandr Smith on 09-04-2024 Neutrophils (Bld) [#/Vol] 3.9 10*3/uL 2.0-7.7 [facility] Anion gap in Serum or Plasma Ordered By: Alexnadr Smith on 09-04-2024 Anion gap [Moles/Vol] 12 mmol/L 5-15 [facility] Automated lymphocyte count a s percentage of total leukocytesOrdered By: Alexandr Smith on 09-04-2024 Lymphocytes/100 WBC Auto (Unsp spec) 33.0 % 19-41 [facility] BUN/creatinine ratioOrdered By: Alexandr Smith on 07-17-2025 Urea nitrogen/Creatinine [Mass ratio] 17.9 mg/mg 10- [facility] Basic Metabolic Profile (BMP )on 09-04-2024 BUN/CRE 17.9 RATIO Normal - [facility] Comment on above: Performed By: #### L 501.5200, L100.0100, L500.2500 ####[facility] [address] [place], [address] Calcium [Mass/Vol] 9.1 mg/dL Normal 7.6-11.0 [facility] Comment on above: Performed By: #### L 501.5200, L100.0100, L500.2500 ####[facility] [address] [place], [address] Chloride [Moles/Vol] 105 mmol/L Normal 98-108 [facility] Comment on above: Performed By: #### L 501.5200, L100.0100, L500.2500 ####[facility] [address] [place], [address] CO2 [Moles/Vol] 21.9 mmol/L Normal 21.0-32.0 [facility] Comment on above: Performed By: #### L 501.5200, L100.0100, L500.2500 ####[facility] [address] [place], [address] Creatinine [Mass/Vol] 0.57 mg/dL Low 0.70-1.20 [facility] Comment on above: Performed By: #### L 501.5200, L100.0100, L500.2500 ####[facility] [address] [place], [address] ECRCL 210.24 ml/min Normal 50-250 [facility] Comment on above: Performed By: #### L 501.5200, L100.0100, L500.2500 ####[facility] [address] [place], [address] GAP 12 Normal 5-15 [facility] Comment on above: Performed By: #### L 501.5200, L100.0100, L500.2500 ####[facility] [address] [place], [address] GFR/1.73 sq M.predicted among non-blacks MDRD (S/P/Bld) [Vol rate/Area] 128 mL/min/{1.73_m2} Normal >60 [facility] Comment on above: Result Comment: mL/m in/1.73m2 CKD-EPI Creatinine Equation (2020) Performed By: #### L 501.5200, L100.0100, L500.2500 ####[facility] [address] [place], [address] Glucose [Mass/Vol] 117 mg/dL High 70-99 [facility] Comment on above: Performed By: #### L 501.5200, L100.0100, L500.2500 ####[facility] [address] [place], [address] Potassium [Moles/Vol] 4.1 mmol/L Normal 3.3-5.1 [facility] Comment on above: Result Comment: Hemo lysis present, Results??could be affected.?? Performed By: #### L 501.5200, L100.0100, L500.2500 ####[facility] [address] [place], [address] Sodium [Moles/Vol] 138 mmol/L Normal 133-145 [facility] Comment on above: Performed By: #### L 501.5200, L100.0100, L500.2500 ####[facility] [address] [place], [address] Urea nitrogen [Mass/Vol] 10 mg/dL Normal 4-19 [facility] Comment on above: Performed By: #### L 501.5200, L100.0100, L500.2500 ####[facility] [address] [place], [address] Basophil percentageOrdered B y: Alexandr Smith on 09-04-2024 Basophils/100 WBC (Bld) 0.7 % 0-1 [facility] Blood manual differential co mment interpretation (narrative result)Ordered By: Alexandr Smith on 09-04-2024 Manual differential comment Willard (Bld) [Interp] SCANNED [facility] Brain/Head without Contrasto n 09-04-2024 Brain/Head without Contrast Normal [facility] CBC W/Diff, Automatedon 07- SMEAR COMMENT SCANNED Normal [facility] Comment on above: Performed By: #### L 501.5200, L100.0100, L500.2500 ####[facility] [address] [place], [address] Carbon dioxide, total [Moles /volume] in Central venous bloodOrdered By: Alexandr Smith on 09-04-2024 CO2 [Moles/Vol] 21.9 mmol/L 21.0-32.0 [facility] Chloride assayOrdered By: Shannen Smith on 09-04-2024 Chloride [Moles/Vol] 105 mmol/L 98-108 [facility] Emergency Department Summary on 09-04-2024 Emergency Department Summary Normal [facility] Eosinophil percentageOrdered By: Alexandr Smith on 09-04-2024 Eosinophils/100 WBC (Bld) 1.4 % 0-5 [facility] Erythrocyte distribution wid th ratioOrdered By: Alexandr Smith on 09-04-2024 Erythrocyte distribution width (RBC) [Ratio] 14.4 % 11.6-14.6 [facility] Erythrocyte distribution wid th standard deviationOrdered By: Alexandr Smith on 09-04-2024 Erythrocyte distribution width (RBC) [Ratio] 43.3 fl 35.1-43.9 [facility] Glomerular filtration rate ( GFR) estimation/1.73 sq m using serum, plasma, or whole bOrdered By: Alexandr Smith on 09-04-2024 GFR/1.73 sq M.predicted among non-blacks MDRD (S/P/Bld) [Vol rate/Area] 128 mL/min/{1.73_m2} >60 [facility] Comment on above: mL/min/1.73m2 CKD-EP I Creatinine Equation (2020) Hematocrit Auto (Bld) [Volum e fraction]Ordered By: Alexandr Smith on 09-04-2024 Hematocrit (Bld) [Volume fraction] 38.0 % 37-47 [facility] Hemoglobin measurementOrdere d By: Alexandr Smith on 09-04-2024 Hemoglobin (Bld) [Mass/Vol] 12.3 g/dL 12.0-15.0 [facility] Immature granulocytes/100 WB C Auto (Bld)Ordered By: Alexandr Smith on 09-04-2024 Immature granulocytes/100 WBC (Bld) 0.400 % 0.0-0.9 [facility] Comment on above: IG% - Immature Granu locytes (promyelocytes, myelocytes and metamyelocytes) > 1% indicates that a LEFT SHIFT is Present. MCV (mean corpuscular volume ) determinationOrdered By: Alexandr Smith on 09-04-2024 MCV (RBC) [Entitic vol] 83.0 fL 81-99 [facility] Magnesiumon 09-04-2024 Magnesium [Mass/Vol] 2.1 mg/dL Normal 1.5-2.2 [facility] Comment on above: Performed By: #### L 501.5200, L100.0100, L500.2500 ####[facility] [address] [place], [place], [id number] Magnesium measurement (mass/ volume)Ordered By: Alexandr Smith on 09-04-2024 Magnesium (Unsp spec) [Mass/Vol] 2.1 mg/dL 1.5-2.2 [facility] Mean corpuscular hemoglobin (MCH) determinationOrdered By: Alexandr Smith on 09-04-2024 MCH (RBC) [Entitic mass] 26.9 pg Low 27.0-32.0 [facility] Mean corpuscular hemoglobin concentration (MCHC) determinationOrdered By: Alexandr Smith on 09-04-2024 MCHC (RBC) [Mass/Vol] 32.4 g/dL 32-36 [facility] Mean platelet volume determi nationOrdered By: Alexandr Smith on 09-04-2024 Platelet mean volume (Bld) [Entitic vol] 11.4 fL 6.2-12.0 [facility] Monocyte percentageOrdered B y: Alexandr Smith on 09-04-2024 Monocytes/100 WBC (Bld) 9.8 % 0-10 [facility] Neutrophil percentageOrdered By: Alexandr Smith on 09-04-2024 Neutrophils/100 WBC (Bld) 54.7 % 47-70 [facility] Nucleated red blood cell per centageOrdered By: Alexandr Smith on 09-04-2024 Nucleated RBC/100 WBC (Bld) [Ratio] 0 % 0-5 [facility] Platelet countOrdered By: Shannen Smith on 09-04-2024 Platelets (Bld) [#/Vol] 241 10*3/uL 150-450 [facility] Potassium measurement (mass/ volume)Ordered By: Alexandr Smith on 09-04-2024 Potassium (Unsp spec) [Mass/Vol] 4.1 mmol/L 3.3-5.1 [facility] Comment on above: Hemolysis present, R esults could be affected. RBC Auto (Bld) [#/Vol]Ordere d By: Alexandr Smith on 09-04-2024 RBC (Bld) [#/Vol] 4.58 10*6/uL 4.2-5.4 [facility] Serum creatinine measurement (mass/volume)Ordered By: Alexandr Smith on 09-04-2024 Creatinine [Mass/Vol] 0.57 mg/dL Low 0.70-1.20 [facility] Serum glucose measurement (m ass/volume)Ordered By: Alexandr Smith on 09-04-2024 Glucose [Mass/Vol] 117 mg/dL High 70-99 [facility] Serum or plasma calcium cherelle urement (mass/volume)Ordered By: Alexandr Smith on 09-04-2024 Calcium [Mass/Vol] 9.1 mg/dL 7.6-11.0 [facility] Serum or plasma urea nitroge n measurement (mass/volume)Ordered By: Alexandr Smith on 09-04-2024 Urea nitrogen [Mass/Vol] 10 mg/dL 4- [facility] Sodium levelOrdered By: Samy Smith on 09-04-2024 Sodium [Moles/Vol] 138 mmol/L 133-145 [facility] Urine Cultureon 09-04-2024 [facility] Mixed Gram Pos Gram Neg Org Brothers Count 25,000-50,000 MIXC Mixed contaminants. Submit a new specimen if indicated. Normal [facility] Comment on above: Performed By: #### L 400.0001, L3410.9992, L500.2500, L100.0100, M100.2200 ####[facility] [address] [place], [place], [id number] White blood cell (WBC) count Ordered By: Alexandr Smith on 09-04-2024 WBC (Bld) [#/Vol] 7.2 10*3/uL 4.4-11.0 [facility] Absolute lymphocyte countOrd ered By: [facility] Naina Da Silva on 09-02-2024 Lymphocytes Auto (Unsp spec) [#/Vol] 2.46 10*3/uL 0.83-4.51 [facility] Absolute neutrophil countOrd ered By: [facility] Naina Da Silva on 09-02-2024 Neutrophils (Bld) [#/Vol] 5.1 10*3/uL 2.0-7.7 [facility] Anion gap in Serum or Plasma Ordered By: [facility] Naina Da Silva on 09-02-2024 Anion gap [Moles/Vol] 10 mmol/L 07-03 [facility] Automated lymphocyte count a s percentage of total leukocytesOrdered By: [facility] Naina Da Silva on 09-02-2024 Lymphocytes/100 WBC Auto (Unsp spec) 29.4 % - [facility] BUN/creatinine ratioOrdered By: [facility] Naina Da Silva on 09-02-2024 Urea nitrogen/Creatinine [Mass ratio] 22.5 mg/mg High 12-08 [facility] Basic Metabolic Profile (BMP )on 09-02-2024 BUN/CRE 22.5 RATIO High 12-08 [facility] Comment on above: Performed By: #### L 400.0001, L3410.9992, L500.2500, L100.0100, M100.2200 ####[facility] [address] [place], [address] Calcium [Mass/Vol] 9.3 mg/dL Normal 7.6-11.0 [facility] Comment on above: Performed By: #### L 400.0001, L3410.9992, L500.2500, L100.0100, M100.2200 ####[facility] [address] [place], [address] Chloride [Moles/Vol] 107 mmol/L Normal 98-108 [facility] Comment on above: Performed By: #### L 400.0001, L3410.9992, L500.2500, L100.0100, M100.2200 ####[facility] [address] [place], [address] CO2 [Moles/Vol] 22.4 mmol/L Normal 21.0-32.0 [facility] Comment on above: Performed By: #### L 400.0001, L3410.9992, L500.2500, L100.0100, M100.2200 ####[facility] [address] [place], [address] Creatinine [Mass/Vol] 0.54 mg/dL Low 0.70-1.20 [facility] Comment on above: Performed By: #### L 400.0001, L3410.9992, L500.2500, L100.0100, M100.2200 ####[facility] [address] [place], [address] GAP 10 Normal 5-15 [facility] Comment on above: Performed By: #### L 400.0001, L3410.9992, L500.2500, L100.0100, M100.2200 ####[facility] [address] [place], [address] GFR/1.73 sq M.predicted among non-blacks MDRD (S/P/Bld) [Vol rate/Area] 129 mL/min/{1.73_m2} Normal >60 [facility] Comment on above: Result Comment: mL/m in/1.73m2 CKD-EPI Creatinine Equation (2020) Performed By: #### L 400.0001, L3410.9992, L500.2500, L100.0100, M100.2200 ####[facility] [address] [place], [address] Glucose [Mass/Vol] 90 mg/dL Normal 70-99 [facility] Comment on above: Performed By: #### L 400.0001, L3410.9992, L500.2500, L100.0100, M100.2200 ####[facility] [address] [place], [address] Potassium [Moles/Vol] 4.0 mmol/L Normal 3.3-5.1 [facility] Comment on above: Performed By: #### L 400.0001, L3410.9992, L500.2500, L100.0100, M100.2200 ####[facility] [address] [place], [address] Sodium [Moles/Vol] 139 mmol/L Normal 133-145 [facility] Comment on above: Performed By: #### L 400.0001, L3410.9992, L500.2500, L100.0100, M100.2200 ####[facility] [address] [place], [address] Urea nitrogen [Mass/Vol] 12 mg/dL Normal 4-19 [facility] Comment on above: Performed By: #### L 400.0001, L3410.9992, L500.2500, L100.0100, M100.2200 ####[facility] [address] [place], [address] Basophil percentageOrdered B y: [facility] Naina Da Silva on 09-02-2024 Basophils/100 WBC (Bld) 0.5 % 0-1 [facility] Bilirubin Test strip Ql (U)O rdered By: [facility] Naina Da Silva on 09-02-2024 Bilirubin Ql (U) Negative Negative [facility] CBC W/Diff, Automatedon 08-19 Absolute Lymph 2.46 X10 3/uL Normal 0.83-4.51 [facility] Comment on above: Performed By: #### L 400.0001, L3410.9992, L500.2500, L100.0100, M100.2200 ####[facility] [address] [place], [address] Absolute Neut 5.1 X10 3/uL Normal 2.0-7.7 [facility] Comment on above: Performed By: #### L 400.0001, L3410.9992, L500.2500, L100.0100, M100.2200 ####[facility] [address] [place], [address] Basophils/100 WBC (Bld) 0.5 % Normal 0-1 [facility] Comment on above: Performed By: #### L 400.0001, L3410.9992, L500.2500, L100.0100, M100.2200 ####[facility] [address] [place], [address] Eosinophils/100 WBC (Bld) 0.8 % Normal 0-5 [facility] Comment on above: Performed By: #### L 400.0001, L3410.9992, L500.2500, L100.0100, M100.2200 ####[facility] [address] [place], [address] Erythrocyte distribution width (RBC) [Ratio] 14.3 % Normal 11.6-14.6 [facility] Comment on above: Performed By: #### L 400.0001, L3410.9992, L500.2500, L100.0100, M100.2200 ####[facility] [address] [place], [address] Hematocrit (Bld) [Volume fraction] 35.8 % Low 37-47 [facility] Comment on above: Performed By: #### L 400.0001, L3410.9992, L500.2500, L100.0100, M100.2200 ####[facility] [address] [place], [address] Hemoglobin (Bld) [Mass/Vol] 11.7 g/dL Low 12.0-15.0 [facility] Comment on above: Performed By: #### L 400.0001, L3410.9992, L500.2500, L100.0100, M100.2200 ####[facility] [address] [place], [address] IG% 0.200 Normal 0.0-0.9 [facility] Comment on above: Result Comment: IG% - Immature Granulocytes (promyelocytes, myelocytes andmetamyelocytes) > 1% indicates that a LEFT SHIFT is Present. Performed By: #### L 400.0001, L3410.9992, L500.2500, L100.0100, M100.2200 ####[facility] [address] [place], [address] Lymphocytes/100 WBC (Bld) 29.4 % Normal 19-41 [facility] Comment on above: Performed By: #### L 400.0001, L3410.9992, L500.2500, L100.0100, M100.2200 ####[facility] [address] [place], [address] MCH (RBC) [Entitic mass] 27.0 pg Normal 27.0-32.0 [facility] Comment on above: Performed By: #### L 400.0001, L3410.9992, L500.2500, L100.0100, M100.2200 ####[facility] [address] [place], [address] MCHC (RBC) [Mass/Vol] 32.7 g/dL Normal 32-36 [facility] Comment on above: Performed By: #### L 400.0001, L3410.9992, L500.2500, L100.0100, M100.2200 ####[facility] [address] [place], [address] MCV (RBC) [Entitic vol] 82.5 fL Normal 81-99 [facility] Comment on above: Performed By: #### L 400.0001, L3410.9992, L500.2500, L100.0100, M100.2200 ####[facility] [address] [place], [address] Monocytes/100 WBC (Bld) 8.2 % Normal 0-10 [facility] Comment on above: Performed By: #### L 400.0001, L3410.9992, L500.2500, L100.0100, M100.2200 ####[facility] [address] [place], [address] Neutrophils/100 WBC (Bld) 60.9 % Normal 47-70 [facility] Comment on above: Performed By: #### L 400.0001, L3410.9992, L500.2500, L100.0100, M100.2200 ####[facility] [address] [place], [address] Nucleated RBC (Bld) [#/Vol] 0 10*3/uL Normal 0-5 [facility] Comment on above: Performed By: #### L 400.0001, L3410.9992, L500.2500, L100.0100, M100.2200 ####[facility] [address] [place], [address] Platelet mean volume (Bld) [Entitic vol] 9.2 fL Normal 6.2-12.0 [facility] Comment on above: Performed By: #### L 400.0001, L3410.9992, L500.2500, L100.0100, M100.2200 ####[facility] [address] [place], [address] Platelets (Bld) [#/Vol] 313 10*3/uL Normal 150-450 [facility] Comment on above: Performed By: #### L 400.0001, L3410.9992, L500.2500, L100.0100, M100.2200 ####[facility] [address] [place], [address] RBC (Bld) [#/Vol] 4.34 10*6/uL Normal 4.2-5.4 [facility] Comment on above: Performed By: #### L 400.0001, L3410.9992, L500.2500, L100.0100, M100.2200 ####[facility] [address] [place], [address] RDW SD 43.1 fl Normal 35.1-43.9 [facility] Comment on above: Performed By: #### L 400.0001, L3410.9992, L500.2500, L100.0100, M100.2200 ####[facility] [address] [place], [address] WBC (Bld) [#/Vol] 8.4 10*3/uL Normal 4.4-11.0 [facility] Comment on above: Performed By: #### L 400.0001, L3410.9992, L500.2500, L100.0100, M100.2200 ####[facility] [address] [place], [address] Carbon dioxide, total [Moles /volume] in Central venous bloodOrdered By: [facility] Naina Avinash on 09-02-2024 CO2 [Moles/Vol] 22.4 mmol/L 21.0-32.0 [facility] Chloride assayOrdered By: [facility] Naina Avinash on 09-02-2024 Chloride [Moles/Vol] 107 mmol/L 98-108 [facility] Eosinophil percentageOrdered By: [facility] Avinash on 09-02-2024 Eosinophils/100 WBC (Bld) 0.8 % 0-5 [facility] Erythrocyte distribution wid th ratioOrdered By: [facility] Avinash on 09-02-2024 Erythrocyte distribution width (RBC) [Ratio] 14.3 % 11.6-14.6 [facility] Erythrocyte distribution wid th standard deviationOrdered By: [facility] on 09-02-2024 Erythrocyte distribution width (RBC) [Ratio] 43.1 fl 35.1-43.9 [facility] Glomerular filtration rate ( GFR) estimation/1.73 sq m using serum, plasma, or whole bOrdered By: [facility] on 09-02-2024 GFR/1.73 sq M.predicted among non-blacks MDRD (S/P/Bld) [Vol rate/Area] 129 mL/min/{1.73_m2} >60 [facility] Comment on above: mL/min/1.73m2 CKD-EP I Creatinine Equation (2020) Hematocrit Auto (Bld) [Volum e fraction]Ordered By: [facility] Naina Avinash on 09-02-2024 Hematocrit (Bld) [Volume fraction] 35.8 % Low 37-47 [facility] Hemoglobin measurementOrdere d By: [facility] Naina Avinash on 09-02-2024 Hemoglobin (Bld) [Mass/Vol] 11.7 g/dL Low 12.0-15.0 [facility] Immature granulocytes/100 WB C Auto (Bld)Ordered By: [facility] Center[facility]ney Da Silva on 09-02-2024 Immature granulocytes/100 WBC (Bld) 0.200 % 0.0-0.9 [facility] Comment on above: IG% - Immature Granu locytes (promyelocytes, myelocytes and metamyelocytes) > 1% indicates that a LEFT SHIFT is Present. Ketones Test strip Ql (U)Ord ered By: [facility] Naina Da Silva on 09-02-2024 Ketones Ql (U) Negative Negative [facility] MCV (mean corpuscular volume ) determinationOrdered By: [facility] Naina Da Silva on 09-02-2024 MCV (RBC) [Entitic vol] 82.5 fL 81-99 [facility] Mean corpuscular hemoglobin (MCH) determinationOrdered By: [facility] Naina Da Silva on 09-02-2024 MCH (RBC) [Entitic mass] 27.0 pg 27.0-32.0 [facility] Mean corpuscular hemoglobin concentration (MCHC) determinationOrdered By: [facility] Naina Da Silva on 09-02-2024 MCHC (RBC) [Mass/Vol] 32.7 g/dL 32-36 [facility] Mean platelet volume determi nationOrdered By: [facility] Naina Da Silva on 09-02-2024 Platelet mean volume (Bld) [Entitic vol] 9.2 fL 6.2-12.0 [facility] Microscopic analysis of urin e for red blood cells (RBC)Ordered By: [facility] Naina Da Silva on 09-02-2024 Microscopic analysis of urine for red blood cells (RBC) 0 SEEN /hpf 0-5 [facility] Monocyte percentageOrdered B y: [facility] Naina Da Silva on 09-02-2024 Monocytes/100 WBC (Bld) 8.2 % 0-10 [facility] Mucus LM Ql (Urine sed)Order ed By: [facility] Naina Da Silva on 09-02-2024 Mucus Ql (Urine sed) 0 SEEN /hpf [facility] Neutrophil percentageOrdered By: [facility] Naina Da Silva on 09-02-2024 Neutrophils/100 WBC (Bld) 60.9 % 47-70 [facility] Nitrite Test strip Ql (U)Ord ered By: [facility] Naina Da Silva on 09-02-2024 Nitrite Ql (U) Negative Negative [facility] Nucleated red blood cell per centageOrdered By: [facility] Naina Da Silva on 09-02-2024 Nucleated RBC/100 WBC (Bld) [Ratio] 0 % 0-5 [facility] Platelet countOrdered By: [facility] Naina Avinash on 09-02-2024 Platelets (Bld) [#/Vol] 313 10*3/uL 150-450 [facility] Potassium measurement (mass/ volume)Ordered By: [facility] Naina Avinash on 09-02-2024 Potassium (Unsp spec) [Mass/Vol] 4.0 mmol/L 3.3-5.1 [facility] Protein Test strip Ql (U)Ord ered By: [facility] Naina Avinash on 09-02-2024 Protein Ql (U) 15 mg/dl High Negative [facility] RBC Auto (Bld) [#/Vol]Ordere d By: [facility] Naina Avinash on 09-02-2024 RBC (Bld) [#/Vol] 4.34 10*6/uL 4.2-5.4 [facility] Serum creatinine measurement (mass/volume)Ordered By: [facility] Nainakourtney Da Silva on 09-02-2024 Creatinine [Mass/Vol] 0.54 mg/dL Low 0.70-1.20 [facility] Serum glucose measurement (m ass/volume)Ordered By: [facility] Naina Avinash on 09-02-2024 Glucose [Mass/Vol] 90 mg/dL 70-99 [facility] Serum or plasma calcium cherelle urement (mass/volume)Ordered By: [facility] Nainakourtney Da Silva on 09-02-2024 Calcium [Mass/Vol] 9.3 mg/dL 7.6-11.0 [facility] Serum or plasma urea nitroge n measurement (mass/volume)Ordered By: [facility] Nainakourtney Da Silva on 09-02-2024 Urea nitrogen [Mass/Vol] 12 mg/dL 4-19 [facility] Sodium levelOrdered By: [facility] Naina Avinash on 09-02-2024 Sodium [Moles/Vol] 139 mmol/L 133-145 [facility] Squamous epithelial cells de tection in urine sediment by light microscopyOrdered By: [facility] Nainakourtney Da Silva on 09-02-2024 Epithelial cells.squamous LM Ql (Urine sed) 0-5 SEEN /hpf 5-10 [facility] Urinalysis, Completeon 09-02 EPI,SQUAMOUS 0-5 SEEN Normal 5-10 [facility] Comment on above: Order Comment: CLEAN CATCH Performed By: #### L 400.0001, L3410.9992, L500.2500, L100.0100, M100.2200 ####[facility] [address] [place], [address] WBC 0-5 SEEN Normal 0-5 [facility] Comment on above: Order Comment: CLEAN CATCH Performed By: #### L 400.0001, L3410.9992, L500.2500, L100.0100, M100.2200 ####[facility] [address] [place], [address] BACTERIA 0 SEEN Normal None Seen [facility] Comment on above: Order Comment: CLEAN CATCH Performed By: #### L 400.0001, L3410.9992, L500.2500, L100.0100, M100.2200 ####[facility] [address] [place], [address] Mucus Ql (Urine sed) 0 SEEN Normal [facility] Comment on above: Order Comment: CLEAN CATCH Performed By: #### L 400.0001, L3410.9992, L500.2500, L100.0100, M100.2200 ####[facility] [address] [place], [address] RBC 0 SEEN Normal 0-5 [facility] Comment on above: Order Comment: CLEAN CATCH Performed By: #### L 400.0001, L3410.9992, L500.2500, L100.0100, M100.2200 ####[facility] [address] [place], [address] Urine clarityOrdered By: REED Da Silva on 09-02-2024 Clarity (U) Clear Clear [facility] Urine color determinationOrd ered By: REED Da Silva on 09-02-2024 Color (U) YELLOW Yellow [facility] Urine cultureOrdered By: [facility] Naina Da Silva on 09-02-2024 Bacteria identified Cx Nom (U) Mixed Gram Pos & Gram Neg Org Abnormal [facility] Urine glucose detectionOrder ed By: [facility] Naina Da Silva on 09-02-2024 Glucose Ql (U) Normal mg/dl Normal [facility] Urine leukocyte esterase det ection by dipstickOrdered By: [facility] Naina Avinash on 09-02-2024 Leukocyte esterase Test strip Ql (U) Negative Negative [facility] Urine pHOrdered By: [facility] Althea Da Silva on 09-02-2024 pH (U) 6.0 [pH] 5.0 - 8.0 [facility] Urine sediment bacteria coun t by microscopy (number/high power field)Ordered By: [facility] Naina Avinash on 09-02-2024 Bacteria LM.HPF (Urine sed) [#/Area] 0 /[HPF] None Seen [facility] Urine specific gravity measu rementOrdered By: [facility] Naina Avinash on 09-02-2024 Specific gravity (U) [Rel density] 1.015 1.002-1.030 [facility] Urine urobilinogen measureme ntOrdered By: [facility] Naina Avinash on 09-02-2024 Urobilinogen Ql (U) Normal mg/dl Normal [facility] White blood cell (WBC) count Ordered By: [facility] Naina Avinash on 09-02-2024 WBC (Bld) [#/Vol] 8.4 10*3/uL 4.4-11.0 [facility] White blood cell countOrdere d By: [facility] Naina Avinash on 09-02-2024 White blood cell count 0-5 SEEN /hpf 0-5 [facility] CNPNon 08-28-2024 CNPN Telephone ([facility]) -------- MARION GUTIERREZ ([id number]) 1995 F Date Time Provider Department 08/28/24 ARSENIO SOLORIO [facility] During your visit today, we recorded the following information about you: Solorio, KANU Mehta 08/28/2024 3:51 PM Signed Endocrinology AND Metabolism Social Work Progress Note Provider Action / FYI N/A Marion Gutierrez [id number] Type of Contact: telephone 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 Note/Intervention: n/a [facility] referral placed: n/a Signature: KANU Pathak Patient Name: Marion Gutierrez Date: 08/28/2024 Time: 3:50 PM Pager/Contact #: [phone] During this patient contact I spent approximately [...] Status:Closed by ARSENIO SOLORIO on 08/28/24 Normal [facility] Magnetic resonance imaging r eportOrdered By: Fantasma Krishnan on 08-08-2024 Study report [facility] Imaging Services [address] [place], [place] [id number] MRI Abd WITH and W/O Contrast MR#: [id number] Acct: [id number] Name: MARION GUTIERREZ Rep #: [id number] : 1995 F 28 From: Eloy Krishnan MD PCP: Karuna Lim MIXER HELPER-C Status: REG CLI Study:MRI Abd WITH and W/O Contrast Date of E xam: 08/07/24 Exam# [id number] Ordering Dr: Robbi Oliva DO PROCEDURE: MRI [...] 2. Other findings as noted. Reading Location: [id number] CC: Andreas Oliva DO; Karuna [facility] MIXER HELPER-C Beam ~ Nutrition Specialist: Signed [facility] Work Phone: MRI Abd WITH and W/O Contras ton 08-07-2024 MRI Abd WITH and W/O Contrast Normal [facility] Cardiology Visit Reporton Cardiology Visit Report Normal [facility] CNOVon 07-15-2024 CNOV Office Visit (ENWSTR ) -------- MARION GUTIERREZ ([id number]) 1995 F Date Time Provider Department 07/15/24 10:40 AM JEY JOHNSON [facility] During your visit today, we recorded the following information about you: Pulse Respiration Blood pressure Weight 61/minute 20/minute 122/78 134.4 kg Height Last Period 1.702 m 06/24/24 Jey Johnson MD 07/16/2024 11:20 PM Addendum Endocrinology and Metabolism [place] Follow up note Chief complaint: Evaluation of [...] must t (more content not 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 Normal [facility] Gastroenterology Visit Repor ton 07-08-2024 Gastroenterology Visit Report Normal [facility] Arterial study reportOrdered By: Ozzy Greco on 06-23-2024 Noninvasive arteriosclerosis study report [facility] Cardiovascular Services [address] [place] [address] Upper Extremity Arterial Study 06/20/24 1006 MR#: [id number] Acct: [id number] Name: MARION GUTIERREZ Rep #:[id number] : 1995 28 From: Ozzy Masterson Attending Dr: LAKESHA MontalvoC S tatus: REG CLI Ordering Dr: Shawanda Ramires NP MIXER HELPER-C Usama e: 06/20/24 Location: [facility] Sex: F C Admitted: Reason For [...] [facility] Performed By: Tylor Encarnacion RVT 06/23/24735 Date _ Ozzy Greco MD CC: HORTENSIA Ramires; Karuna [facility] HORTENSIA Lim ~ Date Dictated: 06/20/24 1006 Date Transcribed: 06/23/24735 Nutrition Specialist: Signed [facility] Work Phone: Upper Extremity Arterial Skyler dyon 06-20-2024 Upper Extremity Arterial Study Normal [facility] Absolute lymphocyte countOrd ered By: Karuna Lim on 06-10-2024 Lymphocytes Auto (Unsp spec) [#/Vol] 2.20 10*3/uL 0.83-4.51 [facility] Absolute neutrophil countOrd ered By: Karuna Lim on 06-10-2024 Neutrophils (Bld) [#/Vol] 5.9 10*3/uL 2.0-7.7 [facility] Anion gap in Serum or Plasma Ordered By: Karuna Lim on 06-10-2024 Anion gap [Moles/Vol] 12 mmol/L 5-15 [facility] Automated lymphocyte count a s percentage of total leukocytesOrdered By: Karuna Lim on 06-10-2024 Lymphocytes/100 WBC Auto (Unsp spec) 24.7 % 19-41 [facility] BUN/creatinine ratioOrdered By: Karuna Lim on 06-10-2024 Urea nitrogen/Creatinine [Mass ratio] 12.5 mg/mg 10-20 [facility] Basophil percentageOrdered B y: Zebulun Beam on 06-10-2024 Basophils/100 WBC (Bld) 0.6 % 0-1 [facility] Bilirubin, totalOrdered By: Zebulun Beam on 06-10-2024 Bilirubin [Mass/Vol] 0.30 mg/dL 0.00-1.30 [facility] CBC W/Diff, Automatedon 05-21 Absolute Lymph 2.20 X10 3/uL Normal 0.83-4.51 [facility] Comment on above: Performed By: #### L 100.0100, L500.4050 ####[facility] [address] [place], [address] Absolute Neut 5.9 X10 3/uL Normal 2.0-7.7 [facility] Comment on above: Performed By: #### L 100.0100, L500.4050 ####[facility] [address] [place], [address] Basophils/100 WBC (Bld) 0.6 % Normal 0-1 [facility] Comment on above: Performed By: #### L 100.0100, L500.4050 ####[facility] [address] [place], [address] Eosinophils/100 WBC (Bld) 0.2 % Normal 0-5 [facility] Comment on above: Performed By: #### L 100.0100, L500.4050 ####[facility] [address] [place], [address] Erythrocyte distribution width (RBC) [Ratio] 14.3 % Normal 11.6-14.6 [facility] Comment on above: Performed By: #### L 100.0100, L500.4050 ####[facility] [address] [place], [address] Hematocrit (Bld) [Volume fraction] 38.5 % Normal 37-47 [facility] Comment on above: Performed By: #### L 100.0100, L500.4050 ####[facility] [address] [place], [address] Hemoglobin (Bld) [Mass/Vol] 12.7 g/dL Normal 12.0-15.0 [facility] Comment on above: Performed By: #### L 100.0100, L500.4050 ####[facility] [address] [place], [address] IG% 0.300 Normal 0.0-0.9 [facility] Comment on above: Result Comment: IG% - Immature Granulocytes (promyelocytes, myelocytes andmetamyelocytes) > 1% indicates that a LEFT SHIFT is Present. Performed By: #### L 100.0100, L500.4050 ####[facility] [address] [place], [address] Lymphocytes/100 WBC (Bld) 24.7 % Normal 19-41 [facility] Comment on above: Performed By: #### L 100.0100, L500.4050 ####[facility] [address] [place], [address] MCH (RBC) [Entitic mass] 26.7 pg Low 27.0-32.0 [facility] Comment on above: Performed By: #### L 100.0100, L500.4050 ####[facility] [address] [place], [address] MCHC (RBC) [Mass/Vol] 33.0 g/dL Normal 32-36 [facility] Comment on above: Performed By: #### L 100.0100, L500.4050 ####[facility] [address] [place], [address] MCV (RBC) [Entitic vol] 81.1 fL Normal 81-99 [facility] Comment on above: Performed By: #### L 100.0100, L500.4050 ####[facility] [address] [place], [address] Monocytes/100 WBC (Bld) 7.4 % Normal 0-10 [facility] Comment on above: Performed By: #### L 100.0100, L500.4050 ####[facility] [address] [place], [address] Neutrophils/100 WBC (Bld) 66.8 % Normal 47-70 [facility] Comment on above: Performed By: #### L 100.0100, L500.4050 ####[facility] [address] [place], [address] Nucleated RBC (Bld) [#/Vol] 0 10*3/uL Normal 0-5 [facility] Comment on above: Performed By: #### L 100.0100, L500.4050 ####[facility] [address] [place], [address] Platelet mean volume (Bld) [Entitic vol] 9.0 fL Normal 6.2-12.0 [facility] Comment on above: Performed By: #### L 100.0100, L500.4050 ####[facility] [address] [place], [address] Platelets (Bld) [#/Vol] 414 10*3/uL Normal 150-450 [facility] Comment on above: Performed By: #### L 100.0100, L500.4050 ####[facility] [address] [place], [address] RBC (Bld) [#/Vol] 4.75 10*6/uL Normal 4.2-5.4 [facility] Comment on above: Performed By: #### L 100.0100, L500.4050 ####[facility] [address] [place], [address] RDW SD 42.1 fl Normal 35.1-43.9 [facility] Comment on above: Performed By: #### L 100.0100, L500.4050 ####[facility] [address] [place], [address] WBC (Bld) [#/Vol] 8.9 10*3/uL Normal 4.4-11.0 [facility] Comment on above: Performed By: #### L 100.0100, L500.4050 ####[facility] [address] [place], [address] Carbon dioxide, total [Moles /volume] in Central venous bloodOrdered By: Karuna Beam on 06-10-2024 CO2 [Moles/Vol] 23.3 mmol/L 21.0-32.0 [facility] Chloride assayOrdered By: Vazquez corral Beam on 06-10-2024 Chloride [Moles/Vol] 104 mmol/L 98-108 [facility] Comprehensive Metabolic Prof ilon 06-10-2024 Albumin [Mass/Vol] 3.9 g/dL Normal 3.5-5.0 [facility] Comment on above: Performed By: #### L 100.0100, L500.4050 ####[facility] [address] [place], [address] Albumin/Globulin [Mass ratio] 1.2 {ratio} Normal 0.9-2.4 [facility] Comment on above: Performed By: #### L 100.0100, L500.4050 ####[facility] [address] [place], [address] ALK PHOS 64 U/L Normal 35-104 [facility] Comment on above: Performed By: #### L 100.0100, L500.4050 ####[facility] [address] [place], [address] ALT [Catalytic activity/Vol] 28 U/L Normal <=34 [facility] Comment on above: Performed By: #### L 100.0100, L500.4050 ####[facility] [address] [place], [address] AST [Catalytic activity/Vol] 22 U/L Normal <=31 [facility] Comment on above: Performed By: #### L 100.0100, L500.4050 ####[facility] [address] [place], [address] Bilirubin [Mass/Vol] 0.30 mg/dL Normal 0.00-1.30 [facility] Comment on above: Performed By: #### L 100.0100, L500.4050 ####[facility] [address] [place], [address] BUN/CRE 12.5 RATIO Normal 10-20 [facility] Comment on above: Performed By: #### L 100.0100, L500.4050 ####[facility] [address] [place], [address] Calcium [Mass/Vol] 9.4 mg/dL Normal 7.6-11.0 [facility] Comment on above: Performed By: #### L 100.0100, L500.4050 ####[facility] [address] [place], [address] Chloride [Moles/Vol] 104 mmol/L Normal 98-108 [facility] Comment on above: Performed By: #### L 100.0100, L500.4050 ####[facility] [address] [place], [address] CO2 [Moles/Vol] 23.3 mmol/L Normal 21.0-32.0 [facility] Comment on above: Performed By: #### L 100.0100, L500.4050 ####[facility] [address] [place], [address] Creatinine [Mass/Vol] 0.98 mg/dL Normal 0.70-1.20 [facility] Comment on above: Performed By: #### L 100.0100, L500.4050 ####[facility] [address] [place], [address] GAP 12 Normal 5-15 [facility] Comment on above: Performed By: #### L 100.0100, L500.4050 ####[facility] [address] [place], [address] GFR/1.73 sq M.predicted among non-blacks MDRD (S/P/Bld) [Vol rate/Area] 82 mL/min/{1.73_m2} Normal >60 [facility] Comment on above: Result Comment: mL/m in/1.73m2 CKD-EPI Creatinine Equation (2020) Performed By: #### L 100.0100, L500.4050 ####[facility] [address] [place], [address] Globulin (S) [Mass/Vol] 3.3 g/dL Normal 2.2-4.2 [facility] Comment on above: Performed By: #### L 100.0100, L500.4050 ####[facility] [address] [place], [address] Glucose [Mass/Vol] 120 mg/dL High 70-99 [facility] Comment on above: Performed By: #### L 100.0100, L500.4050 ####[facility] [address] [place], [address] Potassium [Moles/Vol] 3.9 mmol/L Normal 3.3-5.1 [facility] Comment on above: Performed By: #### L 100.0100, L500.4050 ####[facility] [address] [place], [address] Sodium [Moles/Vol] 138 mmol/L Normal 133-145 [facility] Comment on above: Performed By: #### L 100.0100, L500.4050 ####[facility] [address] [place], [address] T PROT 7.1 g/dL Normal 5.9-8.4 [facility] Comment on above: Performed By: #### L 100.0100, L500.4050 ####[facility] [address] [place], [address] Urea nitrogen [Mass/Vol] 12 mg/dL Normal 4-19 [facility] Comment on above: Performed By: #### L 100.0100, L500.4050 ####[facility] [address] [place], [address] Eosinophil percentageOrdered By: Jakin Beam on 06-10-2024 Eosinophils/100 WBC (Bld) 0.2 % 0-5 [facility] Erythrocyte distribution wid th ratioOrdered By: [facility] on 06-10-2024 Erythrocyte distribution width (RBC) [Ratio] 14.3 % 11.6-14.6 [facility] Erythrocyte distribution wid th standard deviationOrdered By: [facility] Beam on 06-10-2024 Erythrocyte distribution width (RBC) [Ratio] 42.1 fl 35.1-43.9 [facility] Glomerular filtration rate ( GFR) estimation/1.73 sq m using serum, plasma, or whole bOrdered By: shayna Lim on 06-10-2024 GFR/1.73 sq M.predicted among non-blacks MDRD (S/P/Bld) [Vol rate/Area] 82 mL/min/{1.73_m2} >60 [facility] Comment on above: mL/min/1.73m2 CKD-EP I Creatinine Equation (2020) Hematocrit Auto (Bld) [Volum e fraction]Ordered By: Karuna Lim on 06-10-2024 Hematocrit (Bld) [Volume fraction] 38.5 % 37-47 [facility] Hemoglobin measurementOrdere d By: Karuna Lim on 06-10-2024 Hemoglobin (Bld) [Mass/Vol] 12.7 g/dL 12.0-15.0 [facility] Immature granulocytes/100 WB C Auto (Bld)Ordered By: Paytonlun Carina on 06-10-2024 Immature granulocytes/100 WBC (Bld) 0.300 % 0.0-0.9 [facility] Comment on above: IG% - Immature Granu locytes (promyelocytes, myelocytes and metamyelocytes) > 1% indicates that a LEFT SHIFT is Present. Laboratory - Chemistry and C hemistry - challengeOrdered By: Karuna Lim on 06-10-2024 AST [Catalytic activity/Vol] 22 U/L <32 [facility] MCV (mean corpuscular volume ) determinationOrdered By: Karuna Lim on 06-10-2024 MCV (RBC) [Entitic vol] 81.1 fL 81-99 [facility] Mean corpuscular hemoglobin (MCH) determinationOrdered By: [facility] Car[facility] on 06-10-2024 MCH (RBC) [Entitic mass] 26.7 pg Low 27.0-32.0 [facility] Mean corpuscular hemoglobin concentration (MCHC) determinationOrdered By: Jakin Beam on 06-10-2024 MCHC (RBC) [Mass/Vol] 33.0 g/dL 32-36 [facility] Mean platelet volume determi nationOrdered By: shayna Lim on 06-10-2024 Platelet mean volume (Bld) [Entitic vol] 9.0 fL 6.2-12.0 [facility] Monocyte percentageOrdered B y: Karuna Lim on 06-10-2024 Monocytes/100 WBC (Bld) 7.4 % 0-10 [facility] Neutrophil percentageOrdered By: Karuna Lim on 06-10-2024 Neutrophils/100 WBC (Bld) 66.8 % 47-70 [facility] No Panel InformationOrdered By: [facility] Lim on 06-10-2024 22 U/L <32 [facility] Nucleated red blood cell per centageOrdered By: Karuna Lim on 06-10-2024 Nucleated RBC/100 WBC (Bld) [Ratio] 0 % 0-5 [facility] Platelet countOrdered By: Vazquez Lim on 06-10-2024 Platelets (Bld) [#/Vol] 414 10*3/uL 150-450 [facility] Potassium measurement (mass/ volume)Ordered By: Karuna Lim on 06-10-2024 Potassium (Unsp spec) [Mass/Vol] 3.9 mmol/L 3.3-5.1 [facility] RBC Auto (Bld) [#/Vol]Ordere d By: Karuna Lim on 06-10-2024 RBC (Bld) [#/Vol] 4.75 10*6/uL 4.2-5.4 [facility] Serum creatinine measurement (mass/volume)Ordered By: Karuna Lim on 06-10-2024 Creatinine [Mass/Vol] 0.98 mg/dL 0.70-1.20 [facility] Serum globulin measurementOr dered By: Karuna Lim on 06-10-2024 Globulin (S) [Mass/Vol] 3.3 g/dL 2.2-4.2 [facility] Serum glucose measurement (m ass/volume)Ordered By: Karuna Lim on 06-10-2024 Glucose [Mass/Vol] 120 mg/dL High 70-99 [facility] Serum or plasma alanine godinez otransferase (ALT) measurementOrdered By: Karuna Lim on 06-10-2024 ALT [Catalytic activity/Vol] 28 U/L <35 [facility] Serum or plasma albumin cherelle urement (mass/volume)Ordered By: Karuna Lim on 06-10-2024 Albumin [Mass/Vol] 3.9 g/dL 3.5-5.0 [facility] Serum or plasma albumin/glob ulin mass ratioOrdered By: Karuna Lim on 06-10-2024 Albumin/Globulin [Mass ratio] 1.2 {ratio} 0.9-2.4 [facility] Serum or plasma alkaline rohit sphatase measurementOrdered By: Karuna Lim on 06-10-2024 ALP [Catalytic activity/Vol] 64 U/L 35-104 [facility] Serum or plasma calcium chreelle urement (mass/volume)Ordered By: Paytonlun Beam on 06-10-2024 Calcium [Mass/Vol] 9.4 mg/dL 7.6-11.0 [facility] Serum or plasma urea nitroge n measurement (mass/volume)Ordered By: Vazquezbulun Beam on 06-10-2024 Urea nitrogen [Mass/Vol] 12 mg/dL 4-19 [facility] Sodium levelOrdered By: Vazquezbu deb Beam on 06-10-2024 Sodium [Moles/Vol] 138 mmol/L 133-145 [facility] Total proteinOrdered By: Juventino valenzuelaun Beam on 06-10-2024 Protein [Mass/Vol] 7.1 g/dL 5.9-8.4 [facility] White blood cell (WBC) count Ordered By: Karuna Lim on 06-10-2024 WBC (Bld) [#/Vol] 8.9 10*3/uL 4.4-11.0 [facility] 12 Lead EKGon 06-03-2024 12 Lead EKG Normal [facility] Abdomen Limitedon 06-03-2024 Abdomen Limited Normal [facility] Absolute lymphocyte countOrd ered By: Jaylon Galicia on 06-03-2024 Lymphocytes Auto (Unsp spec) [#/Vol] 1.66 10*3/uL 0.83-4.51 [facility] Absolute neutrophil countOrd ered By: Jaylon Galicia on 06-03-2024 Neutrophils (Bld) [#/Vol] 4.2 10*3/uL 2.0-7.7 [facility] Anion gap in Serum or Plasma Ordered By: Jaylon Galicia on 06-03-2024 Anion gap [Moles/Vol] 12 mmol/L 5- [facility] Automated lymphocyte count a s percentage of total leukocytesOrdered By: Jaylon Galicia on 06-03-2024 Lymphocytes/100 WBC Auto (Unsp spec) 25.5 % - [facility] BUN/creatinine ratioOrdered By: Jaylon Galicia on 06-03-2024 Urea nitrogen/Creatinine [Mass ratio] 17.9 mg/mg 10-20 [facility] Basic Metabolic Profile (BMP )on 06-03-2024 BUN/CRE 17.9 RATIO Normal 10-20 [facility] Comment on above: Performed By: #### L 100.0100, L500.2500, L501.4021 ####[facility] [facility] [address] [place], [address] Calcium [Mass/Vol] 8.9 mg/dL Normal 7.6-11.0 [facility] Comment on above: Performed By: #### L 100.0100, L500.2500, L501.4021 ####[facility] [address] [place], [address] Chloride [Moles/Vol] 105 mmol/L Normal 98-108 [facility] Comment on above: Performed By: #### L 100.0100, L500.2500, L501.4021 ####[facility] [address] [place], [address] CO2 [Moles/Vol] 22.0 mmol/L Normal 21.0-32.0 [facility] Comment on above: Performed By: #### L 100.0100, L500.2500, L501.4021 ####[facility] [address] [place], [address] Creatinine [Mass/Vol] 0.53 mg/dL Low 0.70-1.20 [facility] Comment on above: Performed By: #### L 100.0100, L500.2500, L501.4021 ####[facility] [address] [place], [address] ECRCL 225.17 ml/min Normal 50-250 [facility] Comment on above: Performed By: #### L 100.0100, L500.2500, L501.4021 ####[facility] [address] [place], [address] GAP 12 Normal 5-15 [facility] Comment on above: Performed By: #### L 100.0100, L500.2500, L501.4021 ####[facility] [address] [place], [address] GFR/1.73 sq M.predicted among non-blacks MDRD (S/P/Bld) [Vol rate/Area] 130 mL/min/{1.73_m2} Normal >60 [facility] Comment on above: Result Comment: mL/m in/1.73m2 CKD-EPI Creatinine Equation (2020) Performed By: #### L 100.0100, L500.2500, L501.4021 ####[facility] [address] [place], [address] Glucose [Mass/Vol] 118 mg/dL High 70-99 [facility] Comment on above: Performed By: #### L 100.0100, L500.2500, L501.4021 ####[facility] [address] [place], [address] Potassium [Moles/Vol] 3.5 mmol/L Normal 3.3-5.1 [facility] Comment on above: Performed By: #### L 100.0100, L500.2500, L501.4021 ####[facility] [address] [place], [address] Sodium [Moles/Vol] 139 mmol/L Normal 133-145 [facility] Comment on above: Performed By: #### L 100.0100, L500.2500, L501.4021 ####[facility] [address] [place], [address] Urea nitrogen [Mass/Vol] 9 mg/dL Normal 4-19 [facility] Comment on above: Performed By: #### L 100.0100, L500.2500, L501.4021 ####[facility] [address] [place], [address] Basophil percentageOrdered B y: Jaylon Galicia on 06-03-2024 Basophils/100 WBC (Bld) 0.5 % 0-1 [facility] CBC W/Diff, Automatedon 05-20 Absolute Lymph 1.66 X10 3/uL Normal 0.83-4.51 [facility] Comment on above: Performed By: #### L 100.0100, L500.2500, L501.4021 ####[facility] [address] [place], [address] Absolute Neut 4.2 X10 3/uL Normal 2.0-7.7 [facility] Comment on above: Performed By: #### L 100.0100, L500.2500, L501.4021 ####[facility] [address] [place], [address] Basophils/100 WBC (Bld) 0.5 % Normal 0-1 [facility] Comment on above: Performed By: #### L 100.0100, L500.2500, L501.4021 ####[facility] [address] [place], [address] Eosinophils/100 WBC (Bld) 0.5 % Normal 0-5 [facility] Comment on above: Performed By: #### L 100.0100, L500.2500, L501.4021 ####[facility] [address] [place], [address] Erythrocyte distribution width (RBC) [Ratio] 14.3 % Normal 11.6-14.6 [facility] Comment on above: Performed By: #### L 100.0100, L500.2500, L501.4021 ####[facility] [address] [place], [address] Hematocrit (Bld) [Volume fraction] 36.7 % Low 37-47 [facility] Comment on above: Performed By: #### L 100.0100, L500.2500, L501.4021 ####[facility] [address] [place], [address] Hemoglobin (Bld) [Mass/Vol] 12.1 g/dL Normal 12.0-15.0 [facility] Comment on above: Performed By: #### L 100.0100, L500.2500, L501.4021 ####[facility] [address] [place], [address] IG% 0.300 Normal 0.0-0.9 [facility] Comment on above: Result Comment: IG% - Immature Granulocytes (promyelocytes, myelocytes andmetamyelocytes) > 1% indicates that a LEFT SHIFT is Present. Performed By: #### L 100.0100, L500.2500, L501.4021 ####[facility] [address] [place], [address] Lymphocytes/100 WBC (Bld) 25.5 % Normal 19-41 [facility] Comment on above: Performed By: #### L 100.0100, L500.2500, L501.4021 ####[facility] [address] [place], [address] MCH (RBC) [Entitic mass] 26.7 pg Low 27.0-32.0 [facility] Comment on above: Performed By: #### L 100.0100, L500.2500, L501.4021 ####[facility] [address] [place], [address] MCHC (RBC) [Mass/Vol] 33.0 g/dL Normal 32-36 [facility] Comment on above: Performed By: #### L 100.0100, L500.2500, L501.4021 ####[facility] [address] [place], [address] MCV (RBC) [Entitic vol] 81.0 fL Normal 81-99 [facility] Comment on above: Performed By: #### L 100.0100, L500.2500, L501.4021 ####[facility] [address] [place], [address] Monocytes/100 WBC (Bld) 8.9 % Normal 0-10 [facility] Comment on above: Performed By: #### L 100.0100, L500.2500, L501.4021 ####[facility] [address] [place], [address] Neutrophils/100 WBC (Bld) 64.3 % Normal 47-70 [facility] Comment on above: Performed By: #### L 100.0100, L500.2500, L501.4021 ####[facility] [address] [place], [address] Nucleated RBC (Bld) [#/Vol] 0 10*3/uL Normal 0-5 [facility] Comment on above: Performed By: #### L 100.0100, L500.2500, L501.4021 ####[facility] [address] [place], [address] Platelet mean volume (Bld) [Entitic vol] 9.8 fL Normal 6.2-12.0 [facility] Comment on above: Performed By: #### L 100.0100, L500.2500, L501.4021 ####[facility] [address] [place], [address] Platelets (Bld) [#/Vol] 347 10*3/uL Normal 150-450 [facility] Comment on above: Performed By: #### L 100.0100, L500.2500, L501.4021 ####[facility] [address] [place], [address] RBC (Bld) [#/Vol] 4.53 10*6/uL Normal 4.2-5.4 [facility] Comment on above: Performed By: #### L 100.0100, L500.2500, L501.4021 ####[facility] [address] [place], [address] RDW SD 42.2 fl Normal 35.1-43.9 [facility] Comment on above: Performed By: #### L 100.0100, L500.2500, L501.4021 ####[facility] [address] [place], [address] WBC (Bld) [#/Vol] 6.5 10*3/uL Normal 4.4-11.0 [facility] Comment on above: Performed By: #### L 100.0100, L500.2500, L501.4021 ####[facility] [address] [place], [address] CTA Chest W/WO Contraston CTA Chest W/WO Contrast Normal [facility] CTA Head AND Neck W/ Contras ton 06-03-2024 CTA Head AND Neck W/ Contrast Normal [facility] Carbon dioxide, total [Moles /volume] in Central venous bloodOrdered By: Jaylon Galicia on 06-03-2024 CO2 [Moles/Vol] 22.0 mmol/L 21.0-32.0 [facility] Chloride assayOrdered By: Blanca Galicia on 06-03-2024 Chloride [Moles/Vol] 105 mmol/L 98-108 [facility] Emergency Department Summary on 06-03-2024 Emergency Department Summary Normal [facility] Eosinophil percentageOrdered By: Jaylon Galicia on 06-03-2024 Eosinophils/100 WBC (Bld) 0.5 % 0-5 [facility] Erythrocyte distribution wid th (RBC) [Ratio]Ordered By: Jaylon Galicia on 06-03-2024 Erythrocyte distribution width (RBC) [Entitic vol] 42.2 fL 35.1-43.9 [facility] Erythrocyte distribution wid th ratioOrdered By: Jaylon Galicia on 06-03-2024 Erythrocyte distribution width (RBC) [Ratio] 14.3 % 11.6-14.6 [facility] Erythrocyte distribution wid th standard deviationOrdered By: Jaylon Galicia on 06-03-2024 Erythrocyte distribution width (RBC) [Ratio] 42.2 fl 35.1-43.9 [facility] Estimation of creatinine thad aranceOrdered By: Jaylon Galicia on 06-03-2024 Estimated Creatinine Clearance Calc 225.17 ml/min 50-250 [facility] GFR/1.73 sq M.predicted janet g non-blacks MDRD (S/P/Bld) [Vol rate/Area]Ordered By: Jaylon Galicia on 06-03-2024 Estimated GFR (MDRD) Non-Af Amer 130 >60 [facility] Comment on above: mL/min/1.73m2 CKD-EP I Creatinine Equation (2020) Glomerular filtration rate ( GFR) estimation/1.73 sq m using serum, plasma, or whole bOrdered By: Jaylon Galicia on 06-03-2024 GFR/1.73 sq M.predicted among non-blacks MDRD (S/P/Bld) [Vol rate/Area] 130 mL/min/{1.73_m2} >60 [facility] Comment on above: mL/min/1.73m2 CKD-EP I Creatinine Equation (2020) Hematocrit Auto (Bld) [Volum e fraction]Ordered By: Jaylon Galicia on 06-03-2024 Hematocrit (Bld) [Volume fraction] 36.7 % Low 37-47 [facility] Hemoglobin measurementOrdere d By: Jaylon Galicia on 06-03-2024 Hemoglobin (Bld) [Mass/Vol] 12.1 g/dL 12.0-15.0 [facility] Immature granulocytes/100 WB C Auto (Bld)Ordered By: Jaylon Galicia on 06-03-2024 Immature granulocytes/100 WBC (Bld) 0.300 % 0.0-0.9 [facility] Comment on above: IG% - Immature Granu locytes (promyelocytes, myelocytes and metamyelocytes) > 1% indicates that a LEFT SHIFT is Present. L499.0042on 06-03-2024 Trop T High Sen < 6 Normal <=14 [facility] Comment on above: Performed By: #### L 499.0042 ####[facility] [address] [place], [address] L499.0043on 06-03-2024 Trop T High Sen Normal <=14 [facility] Comment on above: Result Comment: NATHAN ENT DISCHARGED Performed By: #### L 499.0043 ####[facility] [address] [place], [address] L501.4021on 06-03-2024 Trop T High Sen < 6 Normal <=14 [facility] Comment on above: Performed By: #### L 100.0100, L500.2500, L501.4021 ####[facility] [address] [place], [address] Lymphocytes Auto (Unsp spec) [#/Vol]Ordered By: Jaylon Galicia on 06-03-2024 Lymphocytes (Bld) [#/Vol] 1.66 10*3/uL 0.83-4.51 [facility] Lymphocytes/100 WBC Auto (Un sp spec)Ordered By: Jaylon Galicia on 06-03-2024 Lymphocytes/100 WBC (Bld) 25.5 % 19-41 [facility] MCV (mean corpuscular volume ) determinationOrdered By: Jaylon Galicia on 06-03-2024 MCV (RBC) [Entitic vol] 81.0 fL 81-99 [facility] Mean corpuscular hemoglobin (MCH) determinationOrdered By: Jaylon Galicia on 06-03-2024 MCH (RBC) [Entitic mass] 26.7 pg Low 27.0-32.0 [facility] Mean corpuscular hemoglobin concentration (MCHC) determinationOrdered By: Jaylon Galicia on 06-03-2024 MCHC (RBC) [Mass/Vol] 33.0 g/dL 32-36 [facility] Mean platelet volume determi nationOrdered By: Jaylon Galicia on 06-03-2024 Platelet mean volume (Bld) [Entitic vol] 9.8 fL 6.2-12.0 [facility] Monocyte percentageOrdered B y: Jaylon Galicia on 06-03-2024 Monocytes/100 WBC (Bld) 8.9 % 0-10 [facility] Neutrophil percentageOrdered By: Jaylon Galicia on 06-03-2024 Neutrophils/100 WBC (Bld) 64.3 % 47-70 [facility] Nucleated red blood cell per centageOrdered By: Jaylon Galicia on 06-03-2024 Nucleated RBC/100 WBC (Bld) [Ratio] 0 % 0-5 [facility] Platelet countOrdered By: Blanca Galicia on 06-03-2024 Platelets (Bld) [#/Vol] 347 10*3/uL 150-450 [facility] Potassium (Unsp spec) [Mass/ Vol]Ordered By: Jaylon Galicia on 06-03-2024 Potassium [Moles/Vol] 3.5 mmol/L 3.3-5.1 [facility] Potassium measurement (mass/ volume)Ordered By: Jaylon Galicia on 06-03-2024 Potassium (Unsp spec) [Mass/Vol] 3.5 mmol/L 3.3-5.1 [facility] RBC Auto (Bld) [#/Vol]Ordere d By: Jaylon Galicia on 06-03-2024 RBC (Bld) [#/Vol] 4.53 10*6/uL 4.2-5.4 [facility] Serum creatinine measurement (mass/volume)Ordered By: Jaylon Galicia on 06-03-2024 Creatinine [Mass/Vol] 0.53 mg/dL Low 0.70-1.20 [facility] Serum glucose measurement (m ass/volume)Ordered By: Jaylon Galicia on 06-03-2024 Glucose [Mass/Vol] 118 mg/dL High 70-99 [facility] Serum or plasma calcium cherelle urement (mass/volume)Ordered By: Jaylon Galicia on 06-03-2024 Calcium [Mass/Vol] 8.9 mg/dL 7.6-11.0 [facility] Serum or plasma urea nitroge n measurement (mass/volume)Ordered By: Jaylon Glaicia on 06-03-2024 Urea nitrogen [Mass/Vol] 9 mg/dL 4-19 [facility] Sodium levelOrdered By: Tomy Galicia on 06-03-2024 Sodium [Moles/Vol] 139 mmol/L 133-145 [facility] Troponin T.cardiac High sens itivity method [Mass/Vol]Ordered By: Jaylon Galicia on 06-03-2024 Troponin T High Sensitivity 2 Hour < 6 ng/L <14 [facility] Troponin T High Sensitivity < 6 ng/L <14 [facility] Troponin T.cardiac [Mass/vol ume] in Serum or Plasma by High sensitivity methodOrdered By: Jaylon Galicia on 06-03-2024 Troponin T.cardiac High sensitivity method [Mass/Vol] < 6 ng/L <14 [facility] Troponin T.cardiac High sensitivity method [Mass/Vol] < 6 ng/L <14 [facility] White blood cell (WBC) count Ordered By: Jaylon Galicia on 06-03-2024 WBC (Bld) [#/Vol] 6.5 10*3/uL 4.4-11.0 [facility] Cardiology Visit Reporton Cardiology Visit Report Normal [facility] Anion gap in Serum or Plasma Ordered By: Karina Guerra on 05-23-2024 Anion gap [Moles/Vol] 11 mmol/L 5-15 [facility] BUN/creatinine ratioOrdered By: Karina Guerra on 05-23-2024 Urea nitrogen/Creatinine [Mass ratio] 16.1 mg/mg 10-20 [facility] Bilirubin, totalOrdered By: Karina Guerra on 05-23-2024 Bilirubin [Mass/Vol] 0.22 mg/dL 0.00-1.30 [facility] Carbon dioxide, total [Moles /volume] in Central venous bloodOrdered By: Karina Guerra on 05-23-2024 CO2 [Moles/Vol] 21.4 mmol/L 21.0-32.0 [facility] Chloride assayOrdered By: Blair Guerra on 05-23-2024 Chloride [Moles/Vol] 106 mmol/L 98-108 [facility] Comprehensive Metabolic Prof ilon 05-23-2024 Albumin [Mass/Vol] 3.8 g/dL Normal 3.5-5.0 [facility] Comment on above: Performed By: #### L 500.8781, L501.9529, L501.9030 ####[facility] [address] [place], [address] Albumin/Globulin [Mass ratio] 1.1 {ratio} Normal 0.9-2.4 [facility] Comment on above: Performed By: #### L 500.4050, L501.9520, L501.9060 ####[facility] [address] [place], [address] ALK PHOS 58 U/L Normal 35-104 [facility] Comment on above: Performed By: #### L 500.4050, L501.9520, L501.9060 ####[facility] [address] [place], [address] ALT [Catalytic activity/Vol] 32 U/L Normal <=34 [facility] Comment on above: Performed By: #### L 500.4050, L501.9520, L501.9060 ####[facility] [address] [place], [address] AST [Catalytic activity/Vol] 23 U/L Normal <=31 [facility] Comment on above: Performed By: #### L 500.4050, L501.9520, L501.9060 ####[facility] [address] [place], [address] Bilirubin [Mass/Vol] 0.22 mg/dL Normal 0.00-1.30 [facility] Comment on above: Performed By: #### L 500.4050, L501.9520, L501.9060 ####[facility] [address] [place], [address] BUN/CRE 16.1 RATIO Normal 10-20 [facility] Comment on above: Performed By: #### L 500.4050, L501.9520, L501.9060 ####[facility] [address] [place], [address] Calcium [Mass/Vol] 9.4 mg/dL Normal 7.6-11.0 [facility] Comment on above: Performed By: #### L 500.4050, L501.9520, L501.9060 ####[facility] [address] [place], [address] Chloride [Moles/Vol] 106 mmol/L Normal 98-108 [facility] Comment on above: Performed By: #### L 500.4050, L501.9520, L501.9060 ####[facility] [address] [place], [address] CO2 [Moles/Vol] 21.4 mmol/L Normal 21.0-32.0 [facility] Comment on above: Performed By: #### L 500.4050, L501.9520, L501.9060 ####[facility] [address] [place], [address] Creatinine [Mass/Vol] 0.53 mg/dL Low 0.70-1.20 [facility] Comment on above: Performed By: #### L 500.4050, L501.9520, L501.9060 ####[facility] [address] [place], [address] GAP 11 Normal 5-15 [facility] Comment on above: Performed By: #### L 500.4050, L501.9520, L501.9060 ####[facility] [address] [place], [address] GFR/1.73 sq M.predicted among non-blacks MDRD (S/P/Bld) [Vol rate/Area] 130 mL/min/{1.73_m2} Normal >60 [facility] Comment on above: Result Comment: mL/m in/1.73m2 CKD-EPI Creatinine Equation (2020) Performed By: #### L 500.4050, L501.9520, L501.9060 ####[facility] [address] [place], [address] Globulin (S) [Mass/Vol] 3.4 g/dL Normal 2.2-4.2 [facility] Comment on above: Performed By: #### L 500.4050, L501.9520, L501.9060 ####[facility] [address] [place], [address] Glucose [Mass/Vol] 114 mg/dL High 70-99 [facility] Comment on above: Performed By: #### L 500.4050, L501.9520, L501.9060 ####[facility] [address] [place], [address] Potassium [Moles/Vol] 4.2 mmol/L Normal 3.3-5.1 [facility] Comment on above: Performed By: #### L 500.4050, L501.9520, L501.9060 ####[facility] [address] [place], [address] Sodium [Moles/Vol] 138 mmol/L Normal 133-145 [facility] Comment on above: Performed By: #### L 500.4050, L501.9520, L501.9060 ####[facility] [address] [place], [address] T PROT 7.1 g/dL Normal 5.9-8.4 [facility] Comment on above: Performed By: #### L 500.4050, L501.9520, L501.9060 ####[facility] [address] [place], [address] Urea nitrogen [Mass/Vol] 9 mg/dL Normal 4-19 [facility] Comment on above: Performed By: #### L 500.4050, L501.9520, L501.9060 ####[facility] [address] [place], [address] GFR/1.73 sq M.predicted janet g non-blacks MDRD (S/P/Bld) [Vol rate/Area]Ordered By: Karina Guerra on 05-23-2024 Estimated GFR (MDRD) Non-Af Amer 130 >60 [facility] Comment on above: mL/min/1.73m2 CKD-EP I Creatinine Equation (2020) Glomerular filtration rate ( GFR) estimation/1.73 sq m using serum, plasma, or whole bOrdered By: Karina Guerra on 05-23-2024 GFR/1.73 sq M.predicted among non-blacks MDRD (S/P/Bld) [Vol rate/Area] 130 mL/min/{1.73_m2} >60 [facility] Comment on above: mL/min/1.73m2 CKD-EP I Creatinine Equation (2020) Laboratory - Chemistry and C hemistry - challengeOrdered By: Karina Guerra on 05-23-2024 AST [Catalytic activity/Vol] 23 U/L <32 [facility] Lithiumon 05-23-2024 LI 0.64 mmol/L Normal 0.60-1.20 [facility] Comment on above: Order Comment: [id number] Performed By: #### L 500.4050, L501.9520, L501.9060 ####[facility] [address] [place], [place], [address] Amaya levelOrdered By: Debora Guerra on 05-23-2024 Amaya Level 0.64 mmol/L 0.60-1.20 [facility] No Panel InformationOrdered By: Karina Guerra on 05-23-2024 23 U/L <32 [facility] Potassium (Unsp spec) [Mass/ Vol]Ordered By: Karina Guerra on 05-23-2024 Potassium [Moles/Vol] 4.2 mmol/L 3.3-5.1 [facility] Potassium measurement (mass/ volume)Ordered By: Karina Guerra on 05-23-2024 Potassium (Unsp spec) [Mass/Vol] 4.2 mmol/L 3.3-5.1 [facility] Serum creatinine measurement (mass/volume)Ordered By: Karina Guerra on 05-23-2024 Creatinine [Mass/Vol] 0.53 mg/dL Low 0.70-1.20 [facility] Serum globulin measurementOr dered By: Karina Guerra on 05-23-2024 Globulin (S) [Mass/Vol] 3.4 g/dL 2.2-4.2 [facility] Serum glucose measurement (m ass/volume)Ordered By: Karina Guerra on 05-23-2024 Glucose [Mass/Vol] 114 mg/dL High 70-99 [facility] Serum or plasma alanine godinez otransferase (ALT) measurementOrdered By: Karina Guerra on 05-23-2024 ALT [Catalytic activity/Vol] 32 U/L <35 [facility] Serum or plasma albumin cherelle urement (mass/volume)Ordered By: Karina Guerra on 05-23-2024 Albumin [Mass/Vol] 3.8 g/dL 3.5-5.0 [facility] Serum or plasma albumin/glob ulin mass ratioOrdered By: Karina Guerra on 05-23-2024 Albumin/Globulin [Mass ratio] 1.1 {ratio} 0.9-2.4 [facility] Serum or plasma alkaline rohit sphatase measurementOrdered By: Karina Guerra on 05-23-2024 ALP [Catalytic activity/Vol] 58 U/L 35-104 [facility] Serum or plasma calcium cherelle urement (mass/volume)Ordered By: Karina Guerra on 05-23-2024 Calcium [Mass/Vol] 9.4 mg/dL 7.6-11.0 [facility] Serum or plasma urea nitroge n measurement (mass/volume)Ordered By: Karina Guerra on 05-23-2024 Urea nitrogen [Mass/Vol] 9 mg/dL 4-19 [facility] Sodium levelOrdered By: Mary Guerra on 05-23-2024 Sodium [Moles/Vol] 138 mmol/L 133-145 [facility] TSH DL <= 0.005 mIU/L QnOrde red By: Karina Guerra on 04-04-2025 Thyroid Stimulating Hormone (TSH) 2.310 uIU/mL 0.300-4.200 [facility] TSH Qn 2.310 uIU/mL 0.300-4.200 [facility] Thyroid Stim Hormone (TSH)on 05-23-2024 TSH 2.310 uIU/mL Normal 0.300-4.200 [facility] Comment on above: Performed By: #### L 500.4050, L501.9520, L501.9060 ####[facility] [address] [place], [address] Total proteinOrdered By: Debora Guerra on 05-23-2024 Protein [Mass/Vol] 7.1 g/dL 5.9-8.4 [facility] Emergency Department Summary on 05-15-2024 Emergency Department Summary Normal [facility] L499.0043on 05-15-2024 Trop T High Sen Normal <=14 [facility] Comment on above: Result Comment: Canc elled via OM: Order cancelled - Patient discharged Performed By: #### L 499.0043 ####[facility] [address] [place], [place], [address] 12 Lead EKGon 05-14-2024 12 Lead EKG Normal [facility] Absolute lymphocyte countOrd ered By: ED PROVIDER on 05-14-2024 Lymphocytes Auto (Unsp spec) [#/Vol] 2.55 10*3/uL 0.83-4.51 [facility] Absolute neutrophil countOrd ered By: ED PROVIDER on 05-14-2024 Neutrophils (Bld) [#/Vol] 4.8 10*3/uL 2.0-7.7 [facility] Anion gap in Serum or Plasma Ordered By: Stan Lin on 05-14-2024 Anion gap [Moles/Vol] 11 mmol/L 5-15 [facility] Automated lymphocyte count a s percentage of total leukocytesOrdered By: ED PROVIDER on 05-14-2024 Lymphocytes/100 WBC Auto (Unsp spec) 31.2 % 19-41 [facility] BUN/creatinine ratioOrdered By: Stan Lin on 03-26-2025 Urea nitrogen/Creatinine [Mass ratio] 20.0 mg/mg 10- [facility] Basic Metabolic Profile (BMP )on 05-14-2024 BUN/CRE 20.0 RATIO Normal - [facility] Comment on above: Performed By: #### L 501.4021, L100.0100, L500.2500 ####[facility] [address] [place], [address] Calcium [Mass/Vol] 9.5 mg/dL Normal 7.6-11.0 [facility] Comment on above: Performed By: #### L 501.4021, L100.0100, L500.2500 ####[facility] [address] [place], [address] Chloride [Moles/Vol] 105 mmol/L Normal 98-108 [facility] Comment on above: Performed By: #### L 501.4021, L100.0100, L500.2500 ####[facility] [address] [place], [address] CO2 [Moles/Vol] 20.5 mmol/L Low 21.0-32.0 [facility] Comment on above: Performed By: #### L 501.4021, L100.0100, L500.2500 ####[facility] [address] [place], [address] Creatinine [Mass/Vol] 0.73 mg/dL Normal 0.70-1.20 [facility] Comment on above: Performed By: #### L 501.4021, L100.0100, L500.2500 ####[facility] [address] [place], [address] ECRCL 161.90 ml/min Normal 50-250 [facility] Comment on above: Performed By: #### L 501.4021, L100.0100, L500.2500 ####[facility] [address] [place], [address] GAP 11 Normal 5-15 [facility] Comment on above: Performed By: #### L 501.4021, L100.0100, L500.2500 ####[facility] [address] [place], [address] GFR/1.73 sq M.predicted among non-blacks MDRD (S/P/Bld) [Vol rate/Area] 116 mL/min/{1.73_m2} Normal >60 [facility] Comment on above: Result Comment: mL/m in/1.73m2 CKD-EPI Creatinine Equation (2020) Performed By: #### L 501.4021, L100.0100, L500.2500 ####[facility] [address] [place], [address] Glucose [Mass/Vol] 124 mg/dL High 70-99 [facility] Comment on above: Performed By: #### L 501.4021, L100.0100, L500.2500 ####[facility] [address] [place], [address] Potassium [Moles/Vol] 4.1 mmol/L Normal 3.3-5.1 [facility] Comment on above: Performed By: #### L 501.4021, L100.0100, L500.2500 ####[facility] [address] [place], [address] Sodium [Moles/Vol] 136 mmol/L Normal 133-145 [facility] Comment on above: Performed By: #### L 501.4021, L100.0100, L500.2500 ####[facility] [address] [place], [address] Urea nitrogen [Mass/Vol] 15 mg/dL Normal 4-19 [facility] Comment on above: Performed By: #### L 501.4021, L100.0100, L500.2500 ####[facility] [address] [place], [address] Basophil percentageOrdered B y: ED PROVIDER on 05-14-2024 Basophils/100 WBC (Bld) 0.4 % 0-1 [facility] CBC W/Diff, Automatedon 04-20 Absolute Lymph 2.55 X10 3/uL Normal 0.83-4.51 [facility] Comment on above: Performed By: #### L 501.4021, L100.0100, L500.2500 ####[facility] [address] [place], [address] Absolute Neut 4.8 X10 3/uL Normal 2.0-7.7 [facility] Comment on above: Performed By: #### L 501.4021, L100.0100, L500.2500 ####[facility] [address] [place], [address] Basophils/100 WBC (Bld) 0.4 % Normal 0-1 [facility] Comment on above: Performed By: #### L 501.4021, L100.0100, L500.2500 ####[facility] [address] [place], [address] Eosinophils/100 WBC (Bld) 0.4 % Normal 0-5 [facility] Comment on above: Performed By: #### L 501.4021, L100.0100, L500.2500 ####[facility] [address] [place], [address] Erythrocyte distribution width (RBC) [Ratio] 14.5 % Normal 11.6-14.6 [facility] Comment on above: Performed By: #### L 501.4021, L100.0100, L500.2500 ####[facility] [address] [place], [address] Hematocrit (Bld) [Volume fraction] 39.4 % Normal 37-47 [facility] Comment on above: Performed By: #### L 501.4021, L100.0100, L500.2500 ####[facility] [address] [place], [address] Hemoglobin (Bld) [Mass/Vol] 12.7 g/dL Normal 12.0-15.0 [facility] Comment on above: Performed By: #### L 501.4021, L100.0100, L500.2500 ####[facility] [address] [place], [address] IG% 0.100 Normal 0.0-0.9 [facility] Comment on above: Result Comment: IG% - Immature Granulocytes (promyelocytes, myelocytes andmetamyelocytes) > 1% indicates that a LEFT SHIFT is Present. Performed By: #### L 501.4021, L100.0100, L500.2500 ####[facility] [address] [place], [address] Lymphocytes/100 WBC (Bld) 31.2 % Normal 19-41 [facility] Comment on above: Performed By: #### L 501.4021, L100.0100, L500.2500 ####[facility] [address] [place], [address] MCH (RBC) [Entitic mass] 26.9 pg Low 27.0-32.0 [facility] Comment on above: Performed By: #### L 501.4021, L100.0100, L500.2500 ####[facility] [address] [place], [address] MCHC (RBC) [Mass/Vol] 32.2 g/dL Normal 32-36 [facility] Comment on above: Performed By: #### L 501.4021, L100.0100, L500.2500 ####[facility] [address] [place], [address] MCV (RBC) [Entitic vol] 83.5 fL Normal 81-99 [facility] Comment on above: Performed By: #### L 501.4021, L100.0100, L500.2500 ####[facility] [address] [place], [address] Monocytes/100 WBC (Bld) 9.0 % Normal 0-10 [facility] Comment on above: Performed By: #### L 501.4021, L100.0100, L500.2500 ####[facility] [address] [place], [address] Neutrophils/100 WBC (Bld) 58.9 % Normal 47-70 [facility] Comment on above: Performed By: #### L 501.4021, L100.0100, L500.2500 ####[facility] [address] [place], [address] Nucleated RBC (Bld) [#/Vol] 0 10*3/uL Normal 0-5 [facility] Comment on above: Performed By: #### L 501.4021, L100.0100, L500.2500 ####[facility] [address] [place], [address] Platelet mean volume (Bld) [Entitic vol] 9.0 fL Normal 6.2-12.0 [facility] Comment on above: Performed By: #### L 501.4021, L100.0100, L500.2500 ####[facility] [address] [place], [address] Platelets (Bld) [#/Vol] 374 10*3/uL Normal 150-450 [facility] Comment on above: Performed By: #### L 501.4021, L100.0100, L500.2500 ####[facility] [address] [place], [address] RBC (Bld) [#/Vol] 4.72 10*6/uL Normal 4.2-5.4 [facility] Comment on above: Performed By: #### L 501.4021, L100.0100, L500.2500 ####[facility] [address] [place], [address] RDW SD 43.8 fl Normal 35.1-43.9 [facility] Comment on above: Performed By: #### L 501.4021, L100.0100, L500.2500 ####[facility] [address] [place], [address] WBC (Bld) [#/Vol] 8.2 10*3/uL Normal 4.4-11.0 [facility] Comment on above: Performed By: #### L 501.4021, L100.0100, L500.2500 ####[facility] [address] [place], [address] Carbon dioxide, total [Moles /volume] in Central venous bloodOrdered By: Stan Lin on 05-14-2024 CO2 [Moles/Vol] 20.5 mmol/L Low 21.0-32.0 [facility] Chest 1 View (Portable)on Chest 1 View (Portable) Normal [facility] Chloride assayOrdered By: Doroteo Lin on 05-14-2024 Chloride [Moles/Vol] 105 mmol/L 98-108 [facility] Eosinophil percentageOrdered By: ED PROVIDER on 05-14-2024 Eosinophils/100 WBC (Bld) 0.4 % 0-5 [facility] Erythrocyte distribution wid th ratioOrdered By: ED PROVIDER on 05-14-2024 Erythrocyte distribution width (RBC) [Ratio] 14.5 % 11.6-14.6 [facility] Erythrocyte distribution wid th standard deviationOrdered By: ED PROVIDER on 05-14-2024 Erythrocyte distribution width (RBC) [Entitic vol] 43.8 fL 35.1-43.9 [facility] Erythrocyte distribution width (RBC) [Ratio] 43.8 fl 35.1-43.9 [facility] Estimation of creatinine thad aranceOrdered By: Stan Lin on 05-14-2024 Estimated Creatinine Clearance Calc 161.90 ml/min 50-250 [facility] GFR/1.73 sq M.predicted janet g non-blacks MDRD (S/P/Bld) [Vol rate/Area]Ordered By: Stan Lin on 05-14-2024 Estimated GFR (MDRD) Non-Af Amer 116 >60 [facility] Comment on above: mL/min/1.73m2 CKD-EP I Creatinine Equation (2020) Glomerular filtration rate ( GFR) estimation/1.73 sq m using serum, plasma, or whole bOrdered By: Stan Lin on 05-14-2024 GFR/1.73 sq M.predicted among non-blacks MDRD (S/P/Bld) [Vol rate/Area] 116 mL/min/{1.73_m2} >60 [facility] Comment on above: mL/min/1.73m2 CKD-EP I Creatinine Equation (2020) Hematocrit Auto (Bld) [Volum e fraction]Ordered By: ED PROVIDER on 05-14-2024 Hematocrit (Bld) [Volume fraction] 39.4 % 37-47 [facility] Hemoglobin measurementOrdere d By: ED PROVIDER on 05-14-2024 Hemoglobin (Bld) [Mass/Vol] 12.7 g/dL 12.0-15.0 [facility] Immature granulocytes/100 WB C Auto (Bld)Ordered By: ED PROVIDER on 05-14-2024 Immature granulocytes/100 WBC (Bld) 0.100 % 0.0-0.9 [facility] Comment on above: IG% - Immature Granu locytes (promyelocytes, myelocytes and metamyelocytes) > 1% indicates that a LEFT SHIFT is Present. L499.0042on 05-14-2024 Trop T High Sen < 6 Normal <=14 [facility] Comment on above: Performed By: #### L 499.0042 ####[facility] [address] [place], [address] L501.4021on 05-14-2024 Trop T High Sen < 6 Normal <=14 [facility] Comment on above: Performed By: #### L 501.4021, L100.0100, L500.2500 ####[facility] [address] [place], [address] Lymphocytes Auto (Unsp spec) [#/Vol]Ordered By: ED PROVIDER on 05-14-2024 Lymphocytes (Bld) [#/Vol] 2.55 10*3/uL 0.83-4.51 [facility] Lymphocytes/100 WBC Auto (Un sp spec)Ordered By: ED PROVIDER on 05-14-2024 Lymphocytes/100 WBC (Bld) 31.2 % 19-41 [facility] MCV (mean corpuscular volume ) determinationOrdered By: ED PROVIDER on 05-14-2024 MCV (RBC) [Entitic vol] 83.5 fL 81-99 [facility] Mean corpuscular hemoglobin (MCH) determinationOrdered By: ED PROVIDER on 05-14-2024 MCH (RBC) [Entitic mass] 26.9 pg Low 27.0-32.0 [facility] Mean corpuscular hemoglobin concentration (MCHC) determinationOrdered By: ED PROVIDER on 05-14-2024 MCHC (RBC) [Mass/Vol] 32.2 g/dL 32-36 [facility] Mean platelet volume determi nationOrdered By: ED PROVIDER on 05-14-2024 Platelet mean volume (Bld) [Entitic vol] 9.0 fL 6.2-12.0 [facility] Monocyte percentageOrdered B y: ED PROVIDER on 05-14-2024 Monocytes/100 WBC (Bld) 9.0 % 0-10 [facility] Neutrophil percentageOrdered By: ED PROVIDER on 05-14-2024 Neutrophils/100 WBC (Bld) 58.9 % 47-70 [facility] No Panel InformationOrdered By: ED PROVIDER on 05-14-2024 Troponin T High Sensitivity < 6 ng/L <14 [facility] < 6 ng/L <14 [facility] Nucleated red blood cell per centageOrdered By: ED PROVIDER on 05-14-2024 Nucleated RBC/100 WBC (Bld) [Ratio] 0 % 0-5 [facility] Platelet countOrdered By: ED PROVIDER on 05-14-2024 Platelets (Bld) [#/Vol] 374 10*3/uL 150-450 [facility] Potassium (Unsp spec) [Mass/ Vol]Ordered By: Stan Lin on 05-14-2024 Potassium [Moles/Vol] 4.1 mmol/L 3.3-5.1 [facility] Potassium measurement (mass/ volume)Ordered By: Stan Lin on 05-14-2024 Potassium (Unsp spec) [Mass/Vol] 4.1 mmol/L 3.3-5.1 [facility] RBC Auto (Bld) [#/Vol]Ordere d By: ED PROVIDER on 05-14-2024 RBC (Bld) [#/Vol] 4.72 10*6/uL 4.2-5.4 [facility] Serum creatinine measurement (mass/volume)Ordered By: Stan Lin on 05-14-2024 Creatinine [Mass/Vol] 0.73 mg/dL 0.70-1.20 [facility] Serum glucose measurement (m ass/volume)Ordered By: Stan Lin on 05-14-2024 Glucose [Mass/Vol] 124 mg/dL High 70-99 [facility] Serum or plasma calcium cherelle urement (mass/volume)Ordered By: Stan Lin on 05-14-2024 Calcium [Mass/Vol] 9.5 mg/dL 7.6-11.0 [facility] Serum or plasma urea nitroge n measurement (mass/volume)Ordered By: Stan Lin on 05-14-2024 Urea nitrogen [Mass/Vol] 15 mg/dL 4-19 [facility] Sodium levelOrdered By: Jeanne Lin on 05-14-2024 Sodium [Moles/Vol] 136 mmol/L 133-145 [facility] Troponin T.cardiac High sens itivity method [Mass/Vol]Ordered By: Stan Lin on 05-14-2024 Troponin T High Sensitivity 2 Hour < 6 ng/L <14 [facility] Troponin T.cardiac [Mass/vol ume] in Serum or Plasma by High sensitivity methodOrdered By: Stan Lin on 05-14-2024 Troponin T.cardiac High sensitivity method [Mass/Vol] < 6 ng/L <14 [facility] White blood cell (WBC) count Ordered By: ED PROVIDER on 05-14-2024 WBC (Bld) [#/Vol] 8.2 10*3/uL 4.4-11.0 [facility] Abdomen/Pelvis W IV Cont ONL Yon 05-08-2024 Abdomen/Pelvis W IV Cont ONLY Normal [facility] Absolute lymphocyte countOrd ered By: Stan Lin on 05-08-2024 Lymphocytes Auto (Unsp spec) [#/Vol] 2.37 10*3/uL 0.83-4.51 [facility] Absolute neutrophil countOrd ered By: Stan Lin on 05-08-2024 Neutrophils (Bld) [#/Vol] 4.5 10*3/uL 2.0-7.7 [facility] Anion gap in Serum or Plasma Ordered By: Stan Lin on 05-08-2024 Anion gap [Moles/Vol] 8 mmol/L 5-15 [facility] Automated lymphocyte count a s percentage of total leukocytesOrdered By: Stan Lin on 05-08-2024 Lymphocytes/100 WBC Auto (Unsp spec) 30.5 % 19- [facility] BUN/creatinine ratioOrdered By: Stan Lin on 05-08-2024 Urea nitrogen/Creatinine [Mass ratio] 26.4 mg/mg High 10- [facility] Basophil percentageOrdered B y: Stan Lin on 05-08-2024 Basophils/100 WBC (Bld) 0.3 % 0-1 [facility] Beta HCG ( test) Ql Ordered By: Stan Lin on 05-08-2024 Serum Test, Qualitative Negative [facility] Bilirubin Test strip Ql (U)O rdered By: Stan Lin on 05-08-2024 Bilirubin Ql (U) Negative Negative [facility] Bilirubin, totalOrdered By: Stan Lin on 05-08-2024 Bilirubin [Mass/Vol] 0.21 mg/dL 0.00-1.30 [facility] CBC W/Diff, Automatedon 04-20 Absolute Lymph 2.37 X10 3/uL Normal 0.83-4.51 [facility] Comment on above: Performed By: #### L 500.4050, L100.0100, L501.2450, L700.6800 ####[facility] [address] [place], [address] Absolute Neut 4.5 X10 3/uL Normal 2.0-7.7 [facility] Comment on above: Performed By: #### L 500.4050, L100.0100, L501.2450, L700.6800 ####[facility] [address] [place], [address] Basophils/100 WBC (Bld) 0.3 % Normal 0-1 [facility] Comment on above: Performed By: #### L 500.4050, L100.0100, L501.2450, L700.6800 ####[facility] [address] [place], [address] Eosinophils/100 WBC (Bld) 0.5 % Normal 0-5 [facility] Comment on above: Performed By: #### L 500.4050, L100.0100, L501.2450, L700.6800 ####[facility] [address] [place], [address] Erythrocyte distribution width (RBC) [Ratio] 14.1 % Normal 11.6-14.6 [facility] Comment on above: Performed By: #### L 500.4050, L100.0100, L501.2450, L700.6800 ####[facility] [address] [place], [address] Hematocrit (Bld) [Volume fraction] 37.3 % Normal 37-47 [facility] Comment on above: Performed By: #### L 500.4050, L100.0100, L501.2450, L700.6800 ####[facility] [address] [place], [address] Hemoglobin (Bld) [Mass/Vol] 12.5 g/dL Normal 12.0-15.0 [facility] Comment on above: Performed By: #### L 500.4050, L100.0100, L501.2450, L700.6800 ####[facility] [address] [place], [address] IG% 0.300 Normal 0.0-0.9 [facility] Comment on above: Result Comment: IG% - Immature Granulocytes (promyelocytes, myelocytes andmetamyelocytes) > 1% indicates that a LEFT SHIFT is Present. Performed By: #### L 500.4050, L100.0100, L501.2450, L700.6800 ####[facility] [address] [place], [address] Lymphocytes/100 WBC (Bld) 30.5 % Normal 19-41 [facility] Comment on above: Performed By: #### L 500.4050, L100.0100, L501.2450, L700.6800 ####[facility] [address] [place], [address] MCH (RBC) [Entitic mass] 27.9 pg Normal 27.0-32.0 [facility] Comment on above: Performed By: #### L 500.4050, L100.0100, L501.2450, L700.6800 ####[facility] [address] [place], [address] MCHC (RBC) [Mass/Vol] 33.5 g/dL Normal 32-36 [facility] Comment on above: Performed By: #### L 500.4050, L100.0100, L501.2450, L700.6800 ####[facility] [address] [place], [address] MCV (RBC) [Entitic vol] 83.3 fL Normal 81-99 [facility] Comment on above: Performed By: #### L 500.4050, L100.0100, L501.2450, L700.6800 ####[facility] [address] [place], [address] Monocytes/100 WBC (Bld) 10.3 % High 0-10 [facility] Comment on above: Performed By: #### L 500.4050, L100.0100, L501.2450, L700.6800 ####[facility] [address] [place], [address] Neutrophils/100 WBC (Bld) 58.1 % Normal 47-70 [facility] Comment on above: Performed By: #### L 500.4050, L100.0100, L501.2450, L700.6800 ####[facility] [address] [place], [address] Nucleated RBC (Bld) [#/Vol] 0 10*3/uL Normal 0-5 [facility] Comment on above: Performed By: #### L 500.4050, L100.0100, L501.2450, L700.6800 ####[facility] [address] [place], [address] Platelet mean volume (Bld) [Entitic vol] 9.0 fL Normal 6.2-12.0 [facility] Comment on above: Performed By: #### L 500.4050, L100.0100, L501.2450, L700.6800 ####[facility] [address] [place], [address] Platelets (Bld) [#/Vol] 356 10*3/uL Normal 150-450 [facility] Comment on above: Performed By: #### L 500.4050, L100.0100, L501.2450, L700.6800 ####[facility] [address] [place], [address] RBC (Bld) [#/Vol] 4.48 10*6/uL Normal 4.2-5.4 [facility] Comment on above: Performed By: #### L 500.4050, L100.0100, L501.2450, L700.6800 ####[facility] [address] [place], [address] RDW SD 43.0 fl Normal 35.1-43.9 [facility] Comment on above: Performed By: #### L 500.4050, L100.0100, L501.2450, L700.6800 ####[facility] [address] [place], [address] WBC (Bld) [#/Vol] 7.8 10*3/uL Normal 4.4-11.0 [facility] Comment on above: Performed By: #### L 500.4050, L100.0100, L501.2450, L700.6800 ####[facility] [address] [place], [address] Carbon dioxide, total [Moles /volume] in Central venous bloodOrdered By: Stan Lin on 05-08-2024 CO2 [Moles/Vol] 23.9 mmol/L 21.0-32.0 [facility] Chloride assayOrdered By: Doroteo Lin on 05-08-2024 Chloride [Moles/Vol] 107 mmol/L 98-108 [facility] Comprehensive Metabolic Prof ilon 05-08-2024 Albumin [Mass/Vol] 3.9 g/dL Normal 3.5-5.0 [facility] Comment on above: Performed By: #### L 500.4050, L100.0100, L501.2450, L700.6800 ####[facility] [address] [place], [address] Albumin/Globulin [Mass ratio] 1.4 {ratio} Normal 0.9-2.4 [facility] Comment on above: Performed By: #### L 500.4050, L100.0100, L501.2450, L700.6800 ####[facility] [address] [place], [address] ALK PHOS 60 U/L Normal 35-104 [facility] Comment on above: Performed By: #### L 500.4050, L100.0100, L501.2450, L700.6800 ####[facility] [address] [place], [address] ALT [Catalytic activity/Vol] 26 U/L Normal <=34 [facility] Comment on above: Performed By: #### L 500.4050, L100.0100, L501.2450, L700.6800 ####[facility] [address] [place], [address] AST [Catalytic activity/Vol] 14 U/L Normal <=31 [facility] Comment on above: Performed By: #### L 500.4050, L100.0100, L501.2450, L700.6800 ####[facility] [address] [place], [address] Bilirubin [Mass/Vol] 0.21 mg/dL Normal 0.00-1.30 [facility] Comment on above: Performed By: #### L 500.4050, L100.0100, L501.2450, L700.6800 ####[facility] [address] [place], [address] BUN/CRE 26.4 RATIO High 10-20 [facility] Comment on above: Performed By: #### L 500.4050, L100.0100, L501.2450, L700.6800 ####[facility] [address] [place], [address] Calcium [Mass/Vol] 9.2 mg/dL Normal 7.6-11.0 [facility] Comment on above: Performed By: #### L 500.4050, L100.0100, L501.2450, L700.6800 ####[facility] [address] [place], [address] Chloride [Moles/Vol] 107 mmol/L Normal 98-108 [facility] Comment on above: Performed By: #### L 500.4050, L100.0100, L501.2450, L700.6800 ####[facility] [address] [place], [address] CO2 [Moles/Vol] 23.9 mmol/L Normal 21.0-32.0 [facility] Comment on above: Performed By: #### L 500.4050, L100.0100, L501.2450, L700.6800 ####[facility] [address] [place], [address] Creatinine [Mass/Vol] 0.48 mg/dL Low 0.70-1.20 [facility] Comment on above: Performed By: #### L 500.4050, L100.0100, L501.2450, L700.6800 ####[facility] [address] [place], [address] ECRCL 243.10 ml/min Normal 50-250 [facility] Comment on above: Performed By: #### L 500.4050, L100.0100, L501.2450, L700.6800 ####[facility] [address] [place], [address] GAP 8 Normal 5-15 [facility] Comment on above: Performed By: #### L 500.4050, L100.0100, L501.2450, L700.6800 ####[facility] [address] [place], [address] GFR/1.73 sq M.predicted among non-blacks MDRD (S/P/Bld) [Vol rate/Area] 133 mL/min/{1.73_m2} Normal >60 [facility] Comment on above: Result Comment: mL/m in/1.73m2 CKD-EPI Creatinine Equation (2020) Performed By: #### L 500.4050, L100.0100, L501.2450, L700.6800 ####[facility] [address] [place], [address] Globulin (S) [Mass/Vol] 2.7 g/dL Normal 2.2-4.2 [facility] Comment on above: Performed By: #### L 500.4050, L100.0100, L501.2450, L700.6800 ####[facility] [address] [place], [address] Glucose [Mass/Vol] 107 mg/dL High 70-99 [facility] Comment on above: Performed By: #### L 500.4050, L100.0100, L501.2450, L700.6800 ####[facility] [address] [place], [address] Potassium [Moles/Vol] 4.0 mmol/L Normal 3.3-5.1 [facility] Comment on above: Performed By: #### L 500.4050, L100.0100, L501.2450, L700.6800 ####[facility] [address] [place], [address] Sodium [Moles/Vol] 139 mmol/L Normal 133-145 [facility] Comment on above: Performed By: #### L 500.4050, L100.0100, L501.2450, L700.6800 ####[facility] [address] [place], [address] T PROT 6.6 g/dL Normal 5.9-8.4 [facility] Comment on above: Performed By: #### L 500.4050, L100.0100, L501.2450, L700.6800 ####[facility] [address] [place], [address] Urea nitrogen [Mass/Vol] 13 mg/dL Normal 4-19 [facility] Comment on above: Performed By: #### L 500.4050, L100.0100, L501.2450, L700.6800 ####[facility] [address] [place], [address] Emergency Department Summary on 05-08-2024 Emergency Department Summary Normal [facility] Eosinophil percentageOrdered By: Stan Lin on 05-08-2024 Eosinophils/100 WBC (Bld) 0.5 % 0-5 [facility] Epithelial cells.squamous LM Ql (Urine sed)Ordered By: Stan Lin on 05-08-2024 Epithelial cells.squamous LM.HPF (Urine sed) [#/Area] 0 /[HPF] 5-10 [facility] Erythrocyte distribution wid th ratioOrdered By: Stan Lin on 05-08-2024 Erythrocyte distribution width (RBC) [Ratio] 14.1 % 11.6-14.6 [facility] Erythrocyte distribution wid th standard deviationOrdered By: Stan Lin on 05-08-2024 Erythrocyte distribution width (RBC) [Entitic vol] 43.0 fL 35.1-43.9 [facility] Erythrocyte distribution width (RBC) [Ratio] 43.0 fl 35.1-43.9 [facility] Estimation of creatinine thad aranceOrdered By: Stan Lin on 05-08-2024 Estimated Creatinine Clearance Calc 243.10 ml/min 50-250 [facility] GFR/1.73 sq M.predicted janet g non-blacks MDRD (S/P/Bld) [Vol rate/Area]Ordered By: Stan Lin on 05-08-2024 Estimated GFR (MDRD) Non-Af Amer 133 >60 [facility] Comment on above: mL/min/1.73m2 CKD-EP I Creatinine Equation (2020) Glomerular filtration rate ( GFR) estimation/1.73 sq m using serum, plasma, or whole bOrdered By: Stan Lin on 05-08-2024 GFR/1.73 sq M.predicted among non-blacks MDRD (S/P/Bld) [Vol rate/Area] 133 mL/min/{1.73_m2} >60 [facility] Comment on above: mL/min/1.73m2 CKD-EP I Creatinine Equation (2020) Glucose Ql (U)Ordered By: Doroteo Lin on 05-08-2024 Urine Glucose (UA) Normal mg/dl Normal [facility] Hematocrit Auto (Bld) [Volum e fraction]Ordered By: Stan Lin on 05-08-2024 Hematocrit (Bld) [Volume fraction] 37.3 % 37-47 [facility] Hemoglobin measurementOrdere d By: Stan Lin on 05-08-2024 Hemoglobin (Bld) [Mass/Vol] 12.5 g/dL 12.0-15.0 [facility] Immature granulocytes/100 WB C Auto (Bld)Ordered By: Stan Lin on 05-08-2024 Immature granulocytes/100 WBC (Bld) 0.300 % 0.0-0.9 [facility] Comment on above: IG% - Immature Granu locytes (promyelocytes, myelocytes and metamyelocytes) > 1% indicates that a LEFT SHIFT is Present. Ketones Test strip Ql (U)Ord ered By: Stan Lin on 05-08-2024 Ketones Ql (U) Negative Negative [facility] Laboratory - Chemistry and C hemistry - challengeOrdered By: Stan Lin on 05-08-2024 AST [Catalytic activity/Vol] 14 U/L <32 [facility] Lipaseon 05-08-2024 Lipase [Catalytic activity/Vol] 32 U/L Normal 13-75 [facility] Comment on above: Result Comment: Kyle kimble note:LIPASE revised reference range effective 22.New Lipase methodology. Expected to produce lower valuesthan the previous assay method.NEW Reference Range: 13 - 75 U/L Performed By: #### L 500.4050, L100.0100, L501.2450, L700.6800 ####[facility] [address] [place], [address] Lipase measurementOrdered By : Stan Lin on 05-08-2024 Lipase [Catalytic activity/Vol] 32 U/L 13-75 [facility] Comment on above: Please note:LIPASE r evised reference range effective 22. New Lipase methodology. Expected to produce lower values than the previous assay method. NEW Reference Range: 13 - 75 U/L Lymphocytes Auto (Unsp spec) [#/Vol]Ordered By: Stan Lin on 05-08-2024 Lymphocytes (Bld) [#/Vol] 2.37 10*3/uL 0.83-4.51 [facility] Lymphocytes/100 WBC Auto (Un sp spec)Ordered By: Stan Lin on 05-08-2024 Lymphocytes/100 WBC (Bld) 30.5 % 19-41 [facility] MCV (mean corpuscular volume ) determinationOrdered By: Stan Lin on 05-08-2024 MCV (RBC) [Entitic vol] 83.3 fL 81-99 [facility] Mean corpuscular hemoglobin (MCH) determinationOrdered By: Stan Lin on 05-08-2024 MCH (RBC) [Entitic mass] 27.9 pg 27.0-32.0 [facility] Mean corpuscular hemoglobin concentration (MCHC) determinationOrdered By: Stan Lin on 05-08-2024 MCHC (RBC) [Mass/Vol] 33.5 g/dL 32-36 [facility] Comment on above: Delta: 31.7 on 05/07 Mean platelet volume determi nationOrdered By: Stan Lin on 05-08-2024 Platelet mean volume (Bld) [Entitic vol] 9.0 fL 6.2-12.0 [facility] Microscopic analysis of urin e for red blood cells (RBC)Ordered By: Stan Lin on 05-08-2024 Microscopic analysis of urine for red blood cells (RBC) 0-5 SEEN /hpf 0-5 [facility] Urine RBC 0-5 SEEN /hpf 0-5 [facility] Monocyte percentageOrdered B y: Stan Lin on 03-20-2025 Monocytes/100 WBC (Bld) 10.3 % High 0-10 [facility] Mucus LM Ql (Urine sed)Order ed By: Stan Lin on 05-08-2024 Mucus Ql (Urine sed) 0 SEEN /hpf [facility] Neutrophil percentageOrdered By: Stan Lin on 05-08-2024 Neutrophils/100 WBC (Bld) 58.1 % 47-70 [facility] Nitrite Test strip Ql (U)Ord ered By: Stan Lin on 05-08-2024 Nitrite Ql (U) Negative Negative [facility] No Panel InformationOrdered By: Stan Lin on 05-08-2024 14 U/L <32 [facility] Nucleated red blood cell per centageOrdered By: Stan Lin on 05-08-2024 Nucleated RBC/100 WBC (Bld) [Ratio] 0 % 0-5 [facility] Platelet countOrdered By: Doroteo Lin on 05-08-2024 Platelets (Bld) [#/Vol] 356 10*3/uL 150-450 [facility] Potassium (Unsp spec) [Mass/ Vol]Ordered By: Stan Lin on 05-08-2024 Potassium [Moles/Vol] 4.0 mmol/L 3.3-5.1 [facility] Potassium measurement (mass/ volume)Ordered By: Stan Lin on 05-08-2024 Potassium (Unsp spec) [Mass/Vol] 4.0 mmol/L 3.3-5.1 [facility] ,Serum,hCG Quali.on 05-08-2024 HCG, SERUM QUAL Negative Normal [facility] Comment on above: Performed By: #### L 500.4050, L100.0100, L501.2450, L700.6800 ####[facility] [address] [place], [place], [id number] Protein Test strip Ql (U)Ord ered By: Stan Lin on 05-08-2024 Protein Ql (U) 15 mg/dl High Negative [facility] RBC Auto (Bld) [#/Vol]Ordere d By: Stan Lin on 05-08-2024 RBC (Bld) [#/Vol] 4.48 10*6/uL 4.2-5.4 [facility] Serum beta-hCG test, qualita tiveOrdered By: Stan Lin on 05-08-2024 Beta HCG ( test) Ql Negative [facility] Serum creatinine measurement (mass/volume)Ordered By: Stan Lin on 05-08-2024 Creatinine [Mass/Vol] 0.48 mg/dL Low 0.70-1.20 [facility] Serum globulin measurementOr dered By: Stan Lin on 05-08-2024 Globulin (S) [Mass/Vol] 2.7 g/dL 2.2-4.2 [facility] Serum glucose measurement (m ass/volume)Ordered By: Stan Lin on 05-08-2024 Glucose [Mass/Vol] 107 mg/dL High 70-99 [facility] Serum or plasma alanine godinez otransferase (ALT) measurementOrdered By: Stan Lin on 05-08-2024 ALT [Catalytic activity/Vol] 26 U/L <35 [facility] Serum or plasma albumin cherelle urement (mass/volume)Ordered By: Stan Lin on 05-08-2024 Albumin [Mass/Vol] 3.9 g/dL 3.5-5.0 [facility] Serum or plasma albumin/glob ulin mass ratioOrdered By: Stan Lin on 05-08-2024 Albumin/Globulin [Mass ratio] 1.4 {ratio} 0.9-2.4 [facility] Serum or plasma alkaline rohit sphatase measurementOrdered By: Stan Lin on 05-08-2024 ALP [Catalytic activity/Vol] 60 U/L 35-104 [facility] Serum or plasma calcium cherelle urement (mass/volume)Ordered By: Stan Lin on 05-08-2024 Calcium [Mass/Vol] 9.2 mg/dL 7.6-11.0 [facility] Serum or plasma urea nitroge n measurement (mass/volume)Ordered By: Stan Lin on 05-08-2024 Urea nitrogen [Mass/Vol] 13 mg/dL 4-19 [facility] Sodium levelOrdered By: eJanne Lin on 05-08-2024 Sodium [Moles/Vol] 139 mmol/L 133-145 [facility] Squamous epithelial cells de tection in urine sediment by light microscopyOrdered By: Stan Lin on 05-08-2024 Epithelial cells.squamous LM Ql (Urine sed) 0-5 SEEN /hpf 5-10 [facility] Total proteinOrdered By: Bhargav Lin on 05-08-2024 Protein [Mass/Vol] 6.6 g/dL 5.9-8.4 [facility] Transitional cells LM Ql (Ur ine sed)Ordered By: Stan Lin on 05-08-2024 Urine Transitional Epithelial Cells 0-5 SEEN /hpf 0-5 [facility] Transitional cells detection in urine sediment by light microscopyOrdered By: Stan Lin on 05-08-2024 Transitional cells LM Ql (Urine sed) 0-5 SEEN /hpf 0-5 [facility] Urinalysis, Completeon 05-08 WBC 5-10 SEEN Normal 0-5 [facility] Comment on above: Order Comment: SELENA CTOR TO SPECIFY Performed By: #### L 400.0001 ####[facility] [address] [place], [address] EPI,TRANSITION 0-5 SEEN Normal 0-5 [facility] Comment on above: Order Comment: SELENA CTOR TO SPECIFY Performed By: #### L 400.0001 ####[facility] [address] [place], [address] RBC 0-5 SEEN Normal 0-5 [facility] Comment on above: Order Comment: SELENA CTOR TO SPECIFY Performed By: #### L 400.0001 ####[facility] [address] [place], [address] BACTERIA 1+ /hpf Normal None Seen [facility] Comment on above: Order Comment: SELENA CTOR TO SPECIFY Performed By: #### L 400.0001 ####[facility] [address] [place], [address] EPI,SQUAMOUS 0-5 SEEN Normal 5-10 [facility] Comment on above: Order Comment: SELENA CTOR TO SPECIFY Performed By: #### L 400.0001 ####[facility] [address] [place], [address] Mucus Ql (Urine sed) 0 SEEN Normal [facility] Comment on above: Order Comment: COLLE CTOR TO SPECIFY Performed By: #### L 400.0001 ####[facility] [address] [place], [place], [address] Urine blood detectionOrdered By: Stan iLn on 05-08-2024 Urine Occult Blood 10 /ul High Negative [facility] Urine clarityOrdered By: Bhargav Lin on 05-08-2024 Clarity (U) Clear Clear [facility] Urine color determinationOrd ered By: Stan Lin on 05-08-2024 Color (U) Yellow Yellow [facility] Urine glucose detectionOrder ed By: Stan Lin on 05-08-2024 Glucose Ql (U) Normal mg/dl Normal [facility] Urine leukocyte esterase det ection by dipstickOrdered By: Stan Lin on 05-08-2024 Leukocyte esterase Test strip Ql (U) 25 /ul High Negative [facility] Urine pHOrdered By: Stan patricia on 05-08-2024 pH (U) 7.0 [pH] 5.0 - 8.0 [facility] Urine sediment bacteria coun t by microscopy (number/high power field)Ordered By: Stan Lin on 05-08-2024 Bacteria LM.HPF (Urine sed) [#/Area] 1 /[HPF] None Seen [facility] Urine specific gravity measu rementOrdered By: Stan Lin on 05-08-2024 Specific gravity (U) [Rel density] 1.005 1.002-1.030 [facility] Urine urobilinogen measureme ntOrdered By: Stan Lin on 05-08-2024 Urobilinogen Ql (U) Normal mg/dl Normal [facility] Urobilinogen Ql (U)Ordered B y: Stan Lin on 05-08-2024 Urine Urobilinogen Normal mg/dl Normal [facility] White blood cell (WBC) count Ordered By: Stan Lin on 05-08-2024 WBC (Bld) [#/Vol] 7.8 10*3/uL 4.4-11.0 [facility] White blood cell countOrdere d By: Stan Lin on 05-08-2024 Urine WBC 5-10 SEEN /hpf 0-5 [facility] White blood cell count 5-10 SEEN /hpf 0-5 [facility] Absolute lymphocyte countOrd ered By: Zebulun Beam on 05-07-2024 Lymphocytes Auto (Unsp spec) [#/Vol] 1.95 10*3/uL 0.83-4.51 [facility] Absolute neutrophil countOrd ered By: Zebulun Beam on 05-07-2024 Neutrophils (Bld) [#/Vol] 4.9 10*3/uL 2.0-7.7 [facility] Automated lymphocyte count a s percentage of total leukocytesOrdered By: Zebulun Beam on 05-07-2024 Lymphocytes/100 WBC Auto (Unsp spec) 25.4 % 19-41 [facility] Basophil percentageOrdered B y: Zebulun Beam on 05-07-2024 Basophils/100 WBC (Bld) 0.5 % 0-1 [facility] CBC W/Diff, Automatedon 04-19 Absolute Lymph 1.95 X10 3/uL Normal 0.83-4.51 [facility] Comment on above: Performed By: #### L 100.0100, L501.9985 ####[facility] [address] [place], [address] Absolute Neut 4.9 X10 3/uL Normal 2.0-7.7 [facility] Comment on above: Performed By: #### L 100.0100, L501.9985 ####[facility] [address] [place], [address] Basophils/100 WBC (Bld) 0.5 % Normal 0-1 [facility] Comment on above: Performed By: #### L 100.0100, L501.9985 ####[facility] [address] [place], [address] Eosinophils/100 WBC (Bld) 0.4 % Normal 0-5 [facility] Comment on above: Performed By: #### L 100.0100, L501.9985 ####[facility] [address] [place], [address] Erythrocyte distribution width (RBC) [Ratio] 14.0 % Normal 11.6-14.6 [facility] Comment on above: Performed By: #### L 100.0100, L501.9985 ####[facility] [address] [place], [address] Hematocrit (Bld) [Volume fraction] 40.1 % Normal 37-47 [facility] Comment on above: Performed By: #### L 100.0100, L5.9985 ####[facility] [address] [place], [address] Hemoglobin (Bld) [Mass/Vol] 12.7 g/dL Normal 12.0-15.0 [facility] Comment on above: Performed By: #### L 100.0100, L5.9985 ####[facility] [address] [place], [address] IG% 0.300 Normal 0.0-0.9 [facility] Comment on above: Result Comment: IG% - Immature Granulocytes (promyelocytes, myelocytes andmetamyelocytes) > 1% indicates that a LEFT SHIFT is Present. Performed By: #### L 100.0100, L501.9985 ####[facility] [address] [place], [address] Lymphocytes/100 WBC (Bld) 25.4 % Normal 19-41 [facility] Comment on above: Performed By: #### L 100.0100, L501.9985 ####[facility] [address] [place], [address] MCH (RBC) [Entitic mass] 26.9 pg Low 27.0-32.0 [facility] Comment on above: Performed By: #### L 100.0100, L501.9985 ####[facility] [address] [place], [address] MCHC (RBC) [Mass/Vol] 31.7 g/dL Low 32-36 [facility] Comment on above: Performed By: #### L 100.0100, L501.9985 ####[facility] [address] [place], [address] MCV (RBC) [Entitic vol] 85.0 fL Normal 81-99 [facility] Comment on above: Performed By: #### L 100.0100, L5.9985 ####[facility] [address] [place], [address] Monocytes/100 WBC (Bld) 9.1 % Normal 0-10 [facility] Comment on above: Performed By: #### L 100.0100, L5.9985 ####[facility] [address] [place], [address] Neutrophils/100 WBC (Bld) 64.3 % Normal 47-70 [facility] Comment on above: Performed By: #### L 100.0100, L501.9985 ####[facility] [address] [place], [address] Nucleated RBC (Bld) [#/Vol] 0 10*3/uL Normal 0-5 [facility] Comment on above: Performed By: #### L 100.0100, L501.9985 ####[facility] [address] [place], [address] Platelet mean volume (Bld) [Entitic vol] 9.4 fL Normal 6.2-12.0 [facility] Comment on above: Performed By: #### L 100.0100, L5.9985 ####[facility] [address] [place], [address] Platelets (Bld) [#/Vol] 380 10*3/uL Normal 150-450 [facility] Comment on above: Performed By: #### L 100.0100, L501.9985 ####[facility] [address] [place], [address] RBC (Bld) [#/Vol] 4.72 10*6/uL Normal 4.2-5.4 [facility] Comment on above: Performed By: #### L 100.0100, L501.9985 ####[facility] [address] [place], [address] RDW SD 43.4 fl Normal 35.1-43.9 [facility] Comment on above: Performed By: #### L 100.0100, L501.9985 ####[facility] [address] [place], [address] WBC (Bld) [#/Vol] 7.7 10*3/uL Normal 4.4-11.0 [facility] Comment on above: Performed By: #### L 100.0100, L501.9985 ####[facility] [address] [place], [address] Eosinophil percentageOrdered By: Zebulun Beam on 05-07-2024 Eosinophils/100 WBC (Bld) 0.4 % 0-5 [facility] Erythrocyte distribution wid th ratioOrdered By: Zebulun Beam on 05-07-2024 Erythrocyte distribution width (RBC) [Ratio] 14.0 % 11.6-14.6 [facility] Erythrocyte distribution wid th standard deviationOrdered By: Zebulun Beam on 05-07-2024 Erythrocyte distribution width (RBC) [Entitic vol] 43.4 fL 35.1-43.9 [facility] Erythrocyte distribution width (RBC) [Ratio] 43.4 fl 35.1-43.9 [facility] Hematocrit Auto (Bld) [Volum e fraction]Ordered By: Jakin Beam on 05-07-2024 Hematocrit (Bld) [Volume fraction] 40.1 % 37-47 [facility] Hemoglobin A1con 05-07-2024 HbA1c (Bld) [Mass fraction] 5.9 % Normal <=5.6 [facility] Comment on above: Performed By: #### L 100.0100, L501.9985 ####[facility] [address] [place], [address] Hemoglobin A1c percentageOrd ered By: Jakin Beam on 05-07-2024 HbA1c (Bld) [Mass fraction] 5.9 % >5.7 [facility] Hemoglobin measurementOrdere d By: Jakin Beam on 05-07-2024 Hemoglobin (Bld) [Mass/Vol] 12.7 g/dL 12.0-15.0 [facility] Immature granulocytes/100 WB C Auto (Bld)Ordered By: reban Beam on 05-07-2024 Immature granulocytes/100 WBC (Bld) 0.300 % 0.0-0.9 [facility] Comment on above: IG% - Immature Granu locytes (promyelocytes, myelocytes and metamyelocytes) > 1% indicates that a LEFT SHIFT is Present. Lymphocytes Auto (Unsp spec) [#/Vol]Ordered By: kwasin Beam on 05-07-2024 Lymphocytes (Bld) [#/Vol] 1.95 10*3/uL 0.83-4.51 [facility] Lymphocytes/100 WBC Auto (Un sp spec)Ordered By: Paytonlun Beam on 05-07-2024 Lymphocytes/100 WBC (Bld) 25.4 % 19-41 [facility] MCV (mean corpuscular volume ) determinationOrdered By: kwasiadalgisa Beam on 05-07-2024 MCV (RBC) [Entitic vol] 85.0 fL 81-99 [facility] Mean corpuscular hemoglobin (MCH) determinationOrdered By: [facility] Beam on 05-07-2024 MCH (RBC) [Entitic mass] 26.9 pg Low 27.0-32.0 [facility] Mean corpuscular hemoglobin concentration (MCHC) determinationOrdered By: Zebulun Beam on 05-07-2024 MCHC (RBC) [Mass/Vol] 31.7 g/dL Low 32-36 [facility] Mean platelet volume determi nationOrdered By: Zebulun Beam on 05-07-2024 Platelet mean volume (Bld) [Entitic vol] 9.4 fL 6.2-12.0 [facility] Monocyte percentageOrdered B y: Zebulun Beam on 05-07-2024 Monocytes/100 WBC (Bld) 9.1 % 0-10 [facility] Neutrophil percentageOrdered By: Zebulun Beam on 05-07-2024 Neutrophils/100 WBC (Bld) 64.3 % 47-70 [facility] Nucleated red blood cell per centageOrdered By: Zebulun Beam on 05-07-2024 Nucleated RBC/100 WBC (Bld) [Ratio] 0 % 0-5 [facility] Platelet countOrdered By: Vazquez marteun Beam on 05-07-2024 Platelets (Bld) [#/Vol] 380 10*3/uL 150-450 [facility] RBC Auto (Bld) [#/Vol]Ordere d By: Zebulun Beam on 05-07-2024 RBC (Bld) [#/Vol] 4.72 10*6/uL 4.2-5.4 [facility] White blood cell (WBC) count Ordered By: Zebulun Beam on 05-07-2024 WBC (Bld) [#/Vol] 7.7 10*3/uL 4.4-11.0 [facility] Absolute lymphocyte countOrd ered By: Zebulun Beam on 04-22-2024 Lymphocytes Auto (Unsp spec) [#/Vol] 1.96 10*3/uL 0.83-4.51 [facility] Absolute neutrophil countOrd ered By: Zebulun Beam on 04-22-2024 Neutrophils (Bld) [#/Vol] 4.8 10*3/uL 2.0-7.7 [facility] Anion gap in Serum or Plasma Ordered By: Zebulun Beam on 04-22-2024 Anion gap [Moles/Vol] 15 mmol/L 5-15 [facility] Automated lymphocyte count a s percentage of total leukocytesOrdered By: Zebulun Beam on 04-22-2024 Lymphocytes/100 WBC Auto (Unsp spec) 26.0 % 19-41 [facility] BUN/creatinine ratioOrdered By: Zebulun Beam on 04-22-2024 Urea nitrogen/Creatinine [Mass ratio] 17.7 mg/mg 10-20 [facility] Basophil percentageOrdered B y: Zebulun Beam on 04-22-2024 Basophils/100 WBC (Bld) 0.5 % 0-1 [facility] Bilirubin, totalOrdered By: Zebulun Beam on 04-22-2024 Bilirubin [Mass/Vol] 0.33 mg/dL 0.00-1.30 [facility] CBC W/Diff, Automatedon Absolute Lymph 1.96 X10 3/uL Normal 0.83-4.51 [facility] Comment on above: Performed By: #### L 500.4050, L100.0100 ####[facility] [address] [place], [address] Absolute Neut 4.8 X10 3/uL Normal 2.0-7.7 [facility] Comment on above: Performed By: #### L 500.4050, L100.0100 ####[facility] [address] [place], [address] Basophils/100 WBC (Bld) 0.5 % Normal 0-1 [facility] Comment on above: Performed By: #### L 500.4050, L100.0100 ####[facility] [address] [place], [address] Eosinophils/100 WBC (Bld) 0.7 % Normal 0-5 [facility] Comment on above: Performed By: #### L 500.4050, L100.0100 ####[facility] [address] [place], [address] Erythrocyte distribution width (RBC) [Ratio] 13.7 % Normal 11.6-14.6 [facility] Comment on above: Performed By: #### L 500.4050, L100.0100 ####[facility] [address] [place], [address] Hematocrit (Bld) [Volume fraction] 37.9 % Normal 37-47 [facility] Comment on above: Performed By: #### L 500.4050, L100.0100 ####[facility] [address] [place], [address] Hemoglobin (Bld) [Mass/Vol] 12.1 g/dL Normal 12.0-15.0 [facility] Comment on above: Performed By: #### L 500.4050, L100.0100 ####[facility] [address] [place], [address] IG% 0.100 Normal 0.0-0.9 [facility] Comment on above: Result Comment: IG% - Immature Granulocytes (promyelocytes, myelocytes andmetamyelocytes) > 1% indicates that a LEFT SHIFT is Present. Performed By: #### L 500.4050, L100.0100 ####[facility] [address] [place], [address] Lymphocytes/100 WBC (Bld) 26.0 % Normal 19-41 [facility] Comment on above: Performed By: #### L 500.4050, L100.0100 ####[facility] [address] [place], [address] MCH (RBC) [Entitic mass] 26.9 pg Low 27.0-32.0 [facility] Comment on above: Performed By: #### L 500.4050, L100.0100 ####[facility] [address] [place], [address] MCHC (RBC) [Mass/Vol] 31.9 g/dL Low 32-36 [facility] Comment on above: Performed By: #### L 500.4050, L100.0100 ####[facility] [address] [place], [address] MCV (RBC) [Entitic vol] 84.2 fL Normal 81-99 [facility] Comment on above: Performed By: #### L 500.4050, L100.0100 ####[facility] [address] [place], [address] Monocytes/100 WBC (Bld) 8.5 % Normal 0-10 [facility] Comment on above: Performed By: #### L 500.4050, L100.0100 ####[facility] [address] [place], [address] Neutrophils/100 WBC (Bld) 64.2 % Normal 47-70 [facility] Comment on above: Performed By: #### L 500.4050, L100.0100 ####[facility] [address] [place], [place], [address] Nucleated RBC (Bld) [#/Vol] 0 10*3/uL Normal 0-5 [facility] Comment on above: Performed By: #### L 500.4050, L100.0100 ####[facility] [address] [place], [address] Platelet mean volume (Bld) [Entitic vol] 9.6 fL Normal 6.2-12.0 [facility] Comment on above: Performed By: #### L 500.4050, L100.0100 ####[facility] [address] [place], [address] Platelets (Bld) [#/Vol] 352 10*3/uL Normal 150-450 [facility] Comment on above: Performed By: #### L 500.4050, L100.0100 ####[facility] [address] [place], [address] RBC (Bld) [#/Vol] 4.50 10*6/uL Normal 4.2-5.4 [facility] Comment on above: Performed By: #### L 500.4050, L100.0100 ####[facility] [address] [place], [address] RDW SD 41.9 fl Normal 35.1-43.9 [facility] Comment on above: Performed By: #### L 500.4050, L100.0100 ####[facility] [address] [place], [address] WBC (Bld) [#/Vol] 7.5 10*3/uL Normal 4.4-11.0 [facility] Comment on above: Performed By: #### L 500.4050, L100.0100 ####[facility] [address] [place], [address] Carbon dioxide, total [Moles /volume] in Central venous bloodOrdered By: Karuna Lim on 04-22-2024 CO2 [Moles/Vol] 20.4 mmol/L Low 21.0-32.0 [facility] Chloride assayOrdered By: Vazquez Lim on 04-22-2024 Chloride [Moles/Vol] 104 mmol/L 98-108 [facility] Comprehensive Metabolic Prof ilon 04-22-2024 Albumin [Mass/Vol] 3.7 g/dL Normal 3.5-5.0 [facility] Comment on above: Performed By: #### L 500.4050, L100.0100 ####[facility] [address] [place], [address] Albumin/Globulin [Mass ratio] 1.1 {ratio} Normal 0.9-2.4 [facility] Comment on above: Performed By: #### L 500.4050, L100.0100 ####[facility] [address] [place], [address] ALK PHOS 62 U/L Normal 35-104 [facility] Comment on above: Performed By: #### L 500.4050, L100.0100 ####[facility] [address] [place], [address] ALT [Catalytic activity/Vol] 19 U/L Normal <=34 [facility] Comment on above: Performed By: #### L 500.4050, L100.0100 ####[facility] [address] [place], [address] AST [Catalytic activity/Vol] 17 U/L Normal <=31 [facility] Comment on above: Performed By: #### L 500.4050, L100.0100 ####[facility] [address] [place], [address] Bilirubin [Mass/Vol] 0.33 mg/dL Normal 0.00-1.30 [facility] Comment on above: Performed By: #### L 500.4050, L100.0100 ####[facility] [address] [place], [address] BUN/CRE 17.7 RATIO Normal 10-20 [facility] Comment on above: Performed By: #### L 500.4050, L100.0100 ####[facility] [address] [place], [address] Calcium [Mass/Vol] 9.3 mg/dL Normal 7.6-11.0 [facility] Comment on above: Performed By: #### L 500.4050, L100.0100 ####[facility] [address] [place], [address] Chloride [Moles/Vol] 104 mmol/L Normal 98-108 [facility] Comment on above: Performed By: #### L 500.4050, L100.0100 ####[facility] [address] [place], [address] CO2 [Moles/Vol] 20.4 mmol/L Low 21.0-32.0 [facility] Comment on above: Performed By: #### L 500.4050, L100.0100 ####[facility] [address] [place], [address] Creatinine [Mass/Vol] 0.58 mg/dL Low 0.70-1.20 [facility] Comment on above: Performed By: #### L 500.4050, L100.0100 ####[facility] [address] [place], [address] GAP 15 Normal 5-15 [facility] Comment on above: Performed By: #### L 500.4050, L100.0100 ####[facility] [address] [place], [address] GFR/1.73 sq M.predicted among non-blacks MDRD (S/P/Bld) [Vol rate/Area] 127 mL/min/{1.73_m2} Normal >60 [facility] Comment on above: Result Comment: mL/m in/1.73m2 CKD-EPI Creatinine Equation (2020) Performed By: #### L 500.4050, L100.0100 ####[facility] [address] [place], [address] Globulin (S) [Mass/Vol] 3.3 g/dL Normal 2.2-4.2 [facility] Comment on above: Performed By: #### L 500.4050, L100.0100 ####[facility] [address] [place], [address] Glucose [Mass/Vol] 109 mg/dL High 70-99 [facility] Comment on above: Performed By: #### L 500.4050, L100.0100 ####[facility] [address] [place], [address] Potassium [Moles/Vol] 4.3 mmol/L Normal 3.3-5.1 [facility] Comment on above: Performed By: #### L 500.4050, L100.0100 ####[facility] [address] [place], [address] Sodium [Moles/Vol] 139 mmol/L Normal 133-145 [facility] Comment on above: Performed By: #### L 500.4050, L100.0100 ####[facility] [address] [place], [address] T PROT 7.0 g/dL Normal 5.9-8.4 [facility] Comment on above: Performed By: #### L 500.4050, L100.0100 ####[facility] [address] [place], [address] Urea nitrogen [Mass/Vol] 10 mg/dL Normal 4-19 [facility] Comment on above: Performed By: #### L 500.4050, L100.0100 ####[facility] [address] [place], [address] Eosinophil percentageOrdered By: Vazquezbulun Beam on 04-22-2024 Eosinophils/100 WBC (Bld) 0.7 % 0-5 [facility] Erythrocyte distribution wid th ratioOrdered By: Zebulun Beam on 04-22-2024 Erythrocyte distribution width (RBC) [Ratio] 13.7 % 11.6-14.6 [facility] Erythrocyte distribution wid th standard deviationOrdered By: [facility] Center[facility]un Beam on 04-22-2024 Erythrocyte distribution width (RBC) [Entitic vol] 41.9 fL 35.1-43.9 [facility] Erythrocyte distribution width (RBC) [Ratio] 41.9 fl 35.1-43.9 [facility] GFR/1.73 sq M.predicted janet g non-blacks MDRD (S/P/Bld) [Vol rate/Area]Ordered By: Zebulun Beam on 04-22-2024 Estimated GFR (MDRD) Non-Af Amer 127 >60 [facility] Comment on above: mL/min/1.73m2 CKD-EP I Creatinine Equation (2020) Glomerular filtration rate ( GFR) estimation/1.73 sq m using serum, plasma, or whole bOrdered By: Karuna Lim on 04-22-2024 GFR/1.73 sq M.predicted among non-blacks MDRD (S/P/Bld) [Vol rate/Area] 127 mL/min/{1.73_m2} >60 [facility] Comment on above: mL/min/1.73m2 CKD-EP I Creatinine Equation (2020) Hematocrit Auto (Bld) [Volum e fraction]Ordered By: Karuna Lim on 04-22-2024 Hematocrit (Bld) [Volume fraction] 37.9 % 37-47 [facility] Hemoglobin measurementOrdere d By: Karuna Lim on 04-22-2024 Hemoglobin (Bld) [Mass/Vol] 12.1 g/dL 12.0-15.0 [facility] Immature granulocytes/100 WB C Auto (Bld)Ordered By: Karuna Lim on 04-22-2024 Immature granulocytes/100 WBC (Bld) 0.100 % 0.0-0.9 [facility] Comment on above: IG% - Immature Granu locytes (promyelocytes, myelocytes and metamyelocytes) > 1% indicates that a LEFT SHIFT is Present. Laboratory - Chemistry and C hemistry - challengeOrdered By: Karuna Lim on 04-22-2024 AST [Catalytic activity/Vol] 17 U/L <32 [facility] Lymphocytes Auto (Unsp spec) [#/Vol]Ordered By: shayna Lim on 04-22-2024 Lymphocytes (Bld) [#/Vol] 1.96 10*3/uL 0.83-4.51 [facility] Lymphocytes/100 WBC Auto (Un sp spec)Ordered By: Karuna Lim on 04-22-2024 Lymphocytes/100 WBC (Bld) 26.0 % 19-41 [facility] MCV (mean corpuscular volume ) determinationOrdered By: Karuna Lim on 04-22-2024 MCV (RBC) [Entitic vol] 84.2 fL 81-99 [facility] Mean corpuscular hemoglobin (MCH) determinationOrdered By: Zebulun Beam on 04-22-2024 MCH (RBC) [Entitic mass] 26.9 pg Low 27.0-32.0 [facility] Mean corpuscular hemoglobin concentration (MCHC) determinationOrdered By: Zebulun Beam on 04-22-2024 MCHC (RBC) [Mass/Vol] 31.9 g/dL Low 32-36 [facility] Mean platelet volume determi nationOrdered By: Zebulun Beam on 04-22-2024 Platelet mean volume (Bld) [Entitic vol] 9.6 fL 6.2-12.0 [facility] Monocyte percentageOrdered B y: Zebulun Beam on 04-22-2024 Monocytes/100 WBC (Bld) 8.5 % 0-10 [facility] Neutrophil percentageOrdered By: Zebulun Beam on 04-22-2024 Neutrophils/100 WBC (Bld) 64.2 % 47-70 [facility] Nucleated red blood cell per centageOrdered By: Zebulun Beam on 04-22-2024 Nucleated RBC/100 WBC (Bld) [Ratio] 0 % 0-5 [facility] Platelet countOrdered By: Vazquez corral Beam on 04-22-2024 Platelets (Bld) [#/Vol] 352 10*3/uL 150-450 [facility] Potassium (Unsp spec) [Mass/ Vol]Ordered By: Zekwasilun Beam on 04-22-2024 Potassium [Moles/Vol] 4.3 mmol/L 3.3-5.1 [facility] Potassium measurement (mass/ volume)Ordered By: Zebulun Beam on 04-22-2024 Potassium (Unsp spec) [Mass/Vol] 4.3 mmol/L 3.3-5.1 [facility] RBC Auto (Bld) [#/Vol]Ordere d By: Zebulun Beam on 04-22-2024 RBC (Bld) [#/Vol] 4.50 10*6/uL 4.2-5.4 [facility] Serum creatinine measurement (mass/volume)Ordered By: Karuna Lim on 04-22-2024 Creatinine [Mass/Vol] 0.58 mg/dL Low 0.70-1.20 [facility] Serum globulin measurementOr dered By: Karuna Lim on 04-22-2024 Globulin (S) [Mass/Vol] 3.3 g/dL 2.2-4.2 [facility] Serum glucose measurement (m ass/volume)Ordered By: Karuna Lim on 04-22-2024 Glucose [Mass/Vol] 109 mg/dL High 70-99 [facility] Serum or plasma alanine godinez otransferase (ALT) measurementOrdered By: Karuna Lim on 04-22-2024 ALT [Catalytic activity/Vol] 19 U/L <35 [facility] Serum or plasma albumin cherelle urement (mass/volume)Ordered By: Karuna Lim on 04-22-2024 Albumin [Mass/Vol] 3.7 g/dL 3.5-5.0 [facility] Serum or plasma albumin/glob ulin mass ratioOrdered By: Karuna Lim on 04-22-2024 Albumin/Globulin [Mass ratio] 1.1 {ratio} 0.9-2.4 [facility] Serum or plasma alkaline rohit sphatase measurementOrdered By: Karuna Lim on 04-22-2024 ALP [Catalytic activity/Vol] 62 U/L 35-104 [facility] Serum or plasma calcium cherelle urement (mass/volume)Ordered By: Karuna Lim on 04-22-2024 Calcium [Mass/Vol] 9.3 mg/dL 7.6-11.0 [facility] Serum or plasma urea nitroge n measurement (mass/volume)Ordered By: Karuna Lim on 04-22-2024 Urea nitrogen [Mass/Vol] 10 mg/dL 4-19 [facility] Sodium levelOrdered By: Payton Lim on 04-22-2024 Sodium [Moles/Vol] 139 mmol/L 133-145 [facility] Total proteinOrdered By: Juventino Lim on 04-22-2024 Protein [Mass/Vol] 7.0 g/dL 5.9-8.4 [facility] White blood cell (WBC) count Ordered By: Karuna Lim on 04-22-2024 WBC (Bld) [#/Vol] 7.5 10*3/uL 4.4-11.0 [facility]ENWSTR ) -------- MARION GUTIERREZ ([id number]) 1995 F Date Time Provider Department 04/15/24 11:20 AM JEY JOHNSON ENWSTR During your visit today, we recorded the following information about you: Pulse Respiration Blood pressure Weight 68/minute 20/minute 120/68 132.3 kg Height Last Period 1.702 m 04/13/24 Jey Johnson MD 04/20/2024 3:26 PM Signed Endocrinology and Metabolism [facility] Follow up note Chief complaint: Evaluation of [...] Comments P (more content not 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 Normal [facility] CNOVon 04-14-2024 CNOV Office Visit (UCWSTR ) -------- MARION GUTIERREZ ([id number]) 1995 F Date Time Provider Department 04/14/24 4:00 PM LINCOLN BALDERAS [facility] During your visit today, we recorded the following information about you: Temperature Pulse Respiration Blood pressure 98.5 degrees 76/minute 18/minute 142/98 Weight 133.7 kg Lincoln Balderas MD 04/14/2024 4:34 PM Signed Patient presents with: Diarrhea: vomiting, cough, chills and fever x 4 days HPI: Feeling sick starting 4 days ago. 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 [employer] VERIO TEST STRIPS test strip 1 Each [...] BY MOUTH TWICE DAILY NEEDED FOR CONSTIPATION. CanDiagTOUCH DELICA PLUS LANCET 33 gauge 1 Each [...] for results if she cannot log into [employer] tomorrow. Continue supportive care for viral illness. [...] Comments: Eats (more content not 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 Normal [facility] Urine Cultureon 02-06-2024 URC Below infection leve l. Mixed Gram Positive Organisms Brothers Count 1000-10,000 MIXC Mixed contaminants. Submit a new specimen if indicated. Normal [facility] Comment on above: Performed By: #### M 100.2200, L4.2010 ####[facility] [address] [place], [address] Bilirubin Test strip Ql (U)O rdered By: Zebulun Beam on 02-05-2024 Bilirubin Ql (U) Negative Negative [facility] Glucose Ql (U)Ordered By: Ze bulun Beam on 02-05-2024 Urine Glucose (UA) Normal mg/dl Normal [facility] Ketones Test strip Ql (U)Ord ered By: Zebulun Beam on 02-05-2024 Ketones Ql (U) Negative Negative [facility] Nitrite Test strip Ql (U)Ord ered By: Zebulun Beam on 02-05-2024 Nitrite Ql (U) Negative Negative [facility] Protein Test strip Ql (U)Ord ered By: Zebulun Beam on 02-05-2024 Protein Ql (U) 30 mg/dl High Negative [facility] Urinalysis, Routine (Dipstic k)on 02-05-2024 BILIRUBIN URINE Negative Normal Negative [facility] Comment on above: Order Comment: Urine , Random Performed By: #### M 100.2199, L4 ####[facility] [address] [place], [address] Clarity (U) Cloudy Normal Clear [facility] Comment on above: Order Comment: Urine , Random Performed By: #### M 100.2199, L4 ####[facility] [address] [place], [address] Color (U) Yellow Normal Yellow [facility] Comment on above: Order Comment: Urine , Random Performed By: #### M 100.2200, L4.2010 ####[facility] [address] [place], [address] GLUCOSE, UR Normal Normal Normal [facility] Comment on above: Order Comment: Urine , Random Performed By: #### M , ####[facility] [address] [place], [address] KETONE UR Negative Normal Negative [facility] Comment on above: Order Comment: Urine , Random Performed By: #### M ####[facility] [address] [place], [address] LEUK ESTERASE 25 /ul Abnormal Negative [facility] Comment on above: Order Comment: Urine , Random Performed By: #### M ####[facility] [address] [place], [address] Nitrite Ql (U) Negative Normal Negative [facility] Comment on above: Order Comment: Urine , Random Performed By: #### M ####[facility] [address] [place], [address] OCCULT BLOOD-UR 250 /ul Abnormal Negative [facility] Comment on above: Order Comment: Urine , Random Performed By: #### M , ####[facility] [address] [place], [address] pH UR 6.0 Normal 5.0 - 8.0 [facility] Comment on above: Order Comment: Urine , Random Performed By: #### M , ####[facility] [address] [place], [address] PROT DIPSTX 30 mg/dl Abnormal Negative [facility] Comment on above: Order Comment: Urine , Random Performed By: #### M , ####[facility] [address] [place], [address] SP.GR. DIPSTX 1.015 Normal 1.002-1.030 [facility] Comment on above: Order Comment: Urine , Random Performed By: #### M 100.2200, L400.2010 ####[facility] [address] [place], [address] UROBILI Normal Normal Normal [facility] Comment on above: Order Comment: Urine , Random Performed By: #### M 100.2200, L400.2010 ####[facility] [address] [place], [address] Urine blood detectionOrdered By: Karuna Lim on 02-05-2024 Urine Occult Blood 250 /ul High Negative [facility] Urine clarityOrdered By: Juventino Lim on 02-05-2024 Clarity (U) Cloudy Clear [facility] Urine color determinationOrd ered By: Karuna Lim on 02-05-2024 Color (U) Yellow Yellow [facility] Urine cultureOrdered By: Juventino Lim on 02-05-2024 Bacteria identified Cx Nom (U) Positive Abnormal [facility] Urine leukocyte esterase det ection by dipstickOrdered By: Karuna Lim on 02-05-2024 Leukocyte esterase Test strip Ql (U) 25 /ul High Negative [facility] Urine pHOrdered By: Karuna Lim on 02-05-2024 pH (U) 6.0 [pH] 5.0 - 8.0 [facility] Urine specific gravity measu rementOrdered By: Karuna Lim on 02-05-2024 Specific gravity (U) [Rel density] 1.015 1.002-1.030 [facility] Urobilinogen Ql (U)Ordered B y: Karuna Lim on 02-05-2024 Urine Urobilinogen Normal mg/dl Normal [facility] CNOVon 01-25-2024 CNOV Office Visit (UCWSTR ) -------- MARION GUTIERREZ ([id number]) 1995 F Date Time Provider Department 01/25/24 1:30 PM LOUIS SCHMIDT [facility] During your visit today, we recorded the following information about you: Temperature Pulse Respiration Blood pressure 98.6 degrees 69/minute 20/minute 132/90 Weight 135 kg Louis Schmidt, PARTS EXPEDITER.[facility] 01/25/2024 12:56 PM Signed CC: Patient [...] Inject 441 mg intramuscularly every 4 weeks. [employer] VERIO TEST STRIPS test strip 1 Each [...] BY MOUTH TWICE DAILY NEEDED FOR CONSTIPATION. Total AttorneysUCH DELICA PLUS LANCET 33 gauge 1 Each [...] two times a day for 7 days. fetoefrn-uonpdhcrd-lbbgg cortisone (CORTISPORIN) 3.5-10,000-1 mg/mL-unit/mL-% otic suspension Use [...] Acute betty (more content not 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 [facility] Telephone (UCTR) -------- MARION GUTIERREZ ([id number]) 1995 F Date Time Provider Department 01/25/24 MALLIKA MO [facility] During your visit today, we recorded the following information about you: Mallika Mo APRN.FINISHING AREA SUPERVISOR 01/25/2024 7:12 AM Signed Please notify that [...] Encounter Status:Closed by NATALEE RODRIGUEZ on 01/25/[facility]WSTR ) -------- BRENDAMARION Crystal ([id number]) 1995 F Date Time Provider Department 01/24/24 1:45 PM MARU GALICIA [facility] During your visit today, we recorded the following information about you: Temperature Pulse Respiration Blood pressure 97.9 degrees 73/minute 20/minute 128/82 Weight 135 kg Maru Galiica PA 01/24/2024 2:08 PM Signed This note was created using NoteWriter. Subjective Marion Marah Brenda is a 28 year old female. HPI [...] Inject 441 mg intramuscularly every 4 weeks. [employer] VERIO TEST STRIPS test strip 1 Each [...] BY MOUTH TWICE DAILY NEEDED FOR CONSTIPATION. CanDiagTOUCH DELICA PLUS LANCET 33 gauge 1 Each [...] Effort: Pu (more content not 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 Normal [facility] COVID AND INFLUENZA A/B AND RSV PCR, ROUTINEon 01-24-2024 SARS-CoV-2 (COVID-19) RNA DAMARIS+probe Ql (Unsp spec) SARS-COV-2 (AGENT OF COVID-19) RNA: Not detected INFLUENZA A RNA: Not detected INFLUENZA B RNA: Not detected RESPIRATORY SYNCYTIAL VIRUS (RSV) RNA: Not detected Normal [facility] Comment on above: Performed By: #### 9 5941-1 #### [facility] CLIA [id number] [address] [place] [address] [place] STREP A MOLECULAR (POC)on Procedural Control Valid [facility] Strep A (POCT) Negative Negative [facility] Cardiology Visit Reporton Cardiology Visit Report Normal [facility] CNOVon 01-08-2024 CNOV Office Visit (ENWSTR ) -------- FedeMARION FABIAN Marah ([id number]) 1995 F Date Time Provider Department 01/08/24 11:40 AM JEY JOHNSON ENWSTR During your visit today, we recorded the following information about you: Pulse Respiration Blood pressure Weight 72/minute 21/minute 122/76 133.4 kg Height Last Period 1.702 m 12/29/23 Jey Johnson MD 01/09/2024 6:32 PM Signed Endocrinology and Metabolism [facility] Follow up note Chief complaint: Evaluation of [...] 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 Normal [facility] 12-19-2023 [facility] Telephone (ENWSTR) -------- MARION GUTIERREZ ([id number]) 1995 F Date Time Provider Department 12/19/23 JEY JOHNSON During your visit today, we recorded the following information about you: Mane Bragg RN 12/19/2023 12:20 PM Signed Signed record release received from [facility] requesting previous OV notes from Dr. Johnson. Pt had 1 OV in 10/2023. This was faxed electronically through [employer] Mane Bragg RN December 19, 2023 12:20 [...] Status:Closed by MANE BRAGG on 12/19/23 Normal [facility] Culture, Anaerobic Any Sourc trey 12-10-2023 CUAN No anaerobic bacteri a isolated. Normal [facility] Comment on above: Performed By: #### M 100.2000, M100.3000, M100.4001 ####[facility] [address] [place], [address] Wound Cultureon 12-08-2023 WC Normal [facility] Comment on above: Performed By: #### M 100.2000, M100.3000, M100.4001 ####[facility] [address] [place], [address] Gram Stainon 12-06-2023 GS Gram Stain Rare Red Blood Cells No organisms seen Normal [facility] Comment on above: Performed By: #### M 100.2000, M100.3000, M100.4001 ####[facility] [address] [place], [address] ACTH Plas-mCncon 12-05-2023 Corticotropin (P) [Mass/Vol] 11.8 pg/mL Normal 7.2-63.3 [facility] Comment on above: Order Comment: Speci men Type: BLOOD SPECIMENOrdering Facility: [facility] Address: [address] [place] [address] Result Comment: ACTH Reference Range: 7-10 am: 7.2 - 63.3 pg/mL Performed By: #### 2 141-0 ####[facility] [id number] [facility] [id number] [address] [place] BIOAVAIL TESTO/SHBG, FEM AND CHILDon 12-05-2023 SEX HORMONE BIND GLB 56 nmol/L Normal 25-122 [facility] Comment on above: Order Comment: Speci men Type: BLOOD SPECIMENOrdering Facility: [facility] Address: [address] [place] [address] Result Comment: REFE RENCE INTERVAL: Sex Hormone Binding Globulin Access complete set of age- and/or gender-specific reference intervals for this test in the [employer] [facility] Test Directory ([employer]). Performed By: #### B TSTFC, HPROG ####[facility] LABORATORIESCLIA [id number] [place] [address] TESTO BIOAVAILABLE 19.4 ng/dL Normal 2.2-20.6 [facility] Comment on above: Order Comment: Speci men Type: BLOOD SPECIMENOrdering Facility: [facility] Address: [address] [place] [address] Result Comment: REFE RENCE INTERVAL: Testosterone, Bioavailable by Wrap Checker Females: Postmenopausal: 1.5 - 9.4 ng/dL INTERPRETIVE INFORMATION: Testosterone, Bioavailable by Wrap Checker Bioavailable testosterone concentration is calculated using total testosterone (measured by mass spectrometry) and the binding constant of testosterone and sex hormone-binding globulin (SHBG) and/or albumin. For individuals on testosterone-suppressing hormone therapies (e.g., antiandrogens or estrogens), refer to cisgender female reference intervals. For a complete set of all established reference intervals, refer to [employer]/Tests/Pub/[id number]. Performed By: #### B TSTFC, HPROG ####[facility] [id number] [place] [address] Testosterone [Mass/Vol] 63 ng/dL High 9-55 [facility] Comment on above: Order Comment: Speci men Type: BLOOD SPECIMENOrdering Facility: [facility] Address: [address] [place] [address] Result Comment: REFE RENCE INTERVAL: Testosterone by Wrap Checker Females Premenopausal 9-55 ng/dL Postmenopausal 5-32 ng/dL INTERPRETIVE INFORMATION: Testosterone by Wrap Checker Free or bioavailable testosterone measurements may provide supportive information. For individuals on testosterone-suppressing hormone therapies (e.g., antiandrogens or estrogens), refer to cisgender female reference intervals. For a complete set of all established reference intervals, refer to [employer]/Tests/Pub/[id number]. This test was developed and its performance characteristics determined by [facility]. It has not been cleared or approved by the US Food and Drug Administration. This test was performed in a CLIA certified laboratory and is intended for clinical purposes. Performed By: #### B TSTFC, HPROG ####[employer] [id number] [place] [address] TESTOSTERONE FREE 8.0 pg/mL High 0.8-7.4 [facility] Comment on above: Order Comment: Speci men Type: BLOOD SPECIMENOrdering Facility: [facility] Address: [address] [place] [address] Result Comment: REFE RENCE INTERVAL: Testosterone, Free by Wrap Checker Females Postmenopausal: 0.6 - 3.8 pg/mL INTERPRETIVE INFORMATION: Testosterone, Free by Wrap Checker Free testosterone concentration is calculated using total testosterone (measured by mass spectrometry) and the binding constant of testosterone and sex hormone-binding globulin (SHBG). For individuals on testosterone-suppressing hormone therapies (e.g., antiandrogens or estrogens), refer to cisgender female reference intervals. For a complete set of all established reference intervals, refer to [employer]/Tests/Pub/[id number]. This test was developed and its performance characteristics determined by [facility]. It has not been cleared or approved by the US Food and Drug Administration. This test was performed in a CLIA certified laboratory and is intended for clinical purposes. Performed By: [facility] [address] [place] [address] [employer] Jig Grinder: Mallika Thao MD, PhD CLIA Number: [id number] Performed By: #### B TSTFC, HPROG ####[facility] [id number] [place] [address] Cortson Grande-Michaela 12-05-19 24 Cortisol [Mass/Vol] 13.6 ug/dL Normal 4.8-19.5 [facility] Comment on above: Order Comment: Speci men Type: BLOOD SPECIMENOrdering Facility: [facility] Address: [address] [place] [address] Result Comment: Prov ided reference range is from 6-10 AM sample collection time. Cortisol Reference Range: 6-10 AM = 4.8-19.5 ug/dL, 4-8 PM = 2.5-11.9 ug/dL Performed By: #### 3 016-3, 2143-6, 3024-7, 2842-3 ####[facility] [id number] [address] [place] DHEA-S BLDon 12-05-2023 DHEA-S [Mass/Vol] 72.8 ug/dL Low 98.8-340.0 [facility] Comment on above: Order Comment: Speci men Type: BLOOD SPECIMENOrdering Facility: [facility] Address: [address] [place] [address] Result Comment: Refe rence ranges are age and gender specific. For additional information, reference range tables can be found in the laboratory test directory. The normal values are based on the following source: Dehydroepiandrosterone sulfate (DHEA S) [package insert V 17.0 Wallisian]. [employer], [place], [place]: September 2012. Performed By: #### 9 5941-1 #### [facility] CLIA [id number] [address] [place] [address] [place] Estradiol SerPl-mCncon 12-04 E2 [Mass/Vol] 66 pg/mL Normal [facility] Comment on above: Order Comment: Speci men Type: BLOOD SPECIMENOrdering Facility: [facility] Address: [address] [place] [address] Result Comment: This test is not suitable [...] 3243 pg/mL Second trimester : 1561 to 36058 pg/mL Third trimester : 8285 to >83441 pg/mL Post-menopausal Estradiol reference range: < 41 pg/mL Reference: 1. Estradiol - E2 (Estradiol III) [package insert V 3.0 Wallisian]. [employer], [place], [place], July 2015. Performed By: #### 9 5941-1 #### [facility] CLIA [id number] [address] [place] [address] [place] FSH SerPl-aCncon 12-05-2023 Follitropin Qn 4.2 m[IU]/mL Normal See comment [facility] Comment on above: Order Comment: Speci men Type: BLOOD SPECIMENOrdering Facility: [facility] Address: [address] [place] [address] Result Comment: Refe rence range: Follicular: 3.5-12.5 mIU/mL Ovulation: 4.7-21.5 mIU/mL Luteal: 1.7-7.7 mIU/mL Postmenopausal: 25.8-134.8 mIU/mL Performed By: #### 9 5941-1 #### [facility] CLIA [id number] [address] [place] [id number] [place] [address] OF [facility] HYDROXYPROGESTERONE-17on 17-HYDROXYPROGESTERONE QUANTITATIVE BY HPLC-MS/MS, SERUM OR PLASMA 48.26 ng/dL Normal <=206.00 [facility] Comment on above: Order Comment: Speci men Type: BLOOD SPECIMENOrdering Facility: [facility] Address: [address] [place] [address] Result Comment: INTERPRETIVE INFORMATION for 17-Hydroxyprogesterone in females: Follicular 15 to 70 ng/dL Luteal 35 to 290 ng/dL REFERENCE INTERVAL: 17-Hydroxyprogesterone Qnt, HPLC-MS/MS Access complete set of age- and/or gender-specific reference intervals for this test in the [employer] [facility] Test Directory ([employer]). This test was developed and its performance characteristics determined by [facility]. It has not been cleared or approved by the US Food and Drug Administration. This test was performed in a CLIA certified laboratory and is intended for clinical purposes. Performed By: [facility] [address] [place] [address] [employer] J[employer] Grinder: Mallika Thao MD, PhD CLIA Number: [id number] Performed By: #### B TSTFC, [facility] ####[facility] [id number] [place] [id number] HbA1c (Bld)on 12-05-2023 Average glucose Estimated from glycated hemoglobin (Bld) [Mass/Vol] 117 mg/dL Normal [facility] Comment on above: Order Comment: Speci men Type: BLOOD SPECIMENOrdering Facility: [facility] Address: [address] [place] [address] Result Comment: eAG: (Estimated average glucose) is a calculated value from HgbA1c and is access representative of the average blood glucose level in the last 2-3 month period. Performed By: #### 5 5454-3 ####[facility] LAB[facility] [id number] [place] [address] [place] HbA1c (Bld) [Mass fraction] 5.7 % High 4.3-5.6 [facility] Comment on above: Order Comment: Speci men Type: BLOOD SPECIMENOrdering Facility: [facility] Address: [address] [place] [address] Result Comment: Amer ican Diabetes Association guidelines indicate that patients with HgbA1c in the range 5.7-6.4% are at increased risk for development of diabetes, and intervention by lifestyle modification may be beneficial. HgbA1c greater or equal to 6.5% is considered diagnostic of diabetes. Performed By: #### 5 5454-3 ####[facility] [id number] [place] [address] [place] Insulin SerPl-aCncon 024 Insulin Qn 97.9 u[IU]/mL High 3.0-25.0 [facility] Comment on above: Order Comment: Speci men Type: BLOOD SPECIMENOrdering Facility: [facility] Address: [address] [place] [address] Performed By: #### 2 0448-7 ####[facility] [id number] [place] [address] [place] LH SerPl-aCncon 12-05-2023 Lutropin Qn 6.7 m[IU]/mL Normal See comment [facility] Comment on above: Order Comment: Speci men Type: BLOOD SPECIMENOrdering Facility: [facility] Address: [address] [place] [address] Result Comment: Refe rence range: Follicular: 2.4-12.6 mIU/mL Midcycle: 14.0-95.6 mIU/mL Luteal: 1.0-11.4 mIU/mL Post Rand: 7.7-58.5 mIU/mL Performed By: #### 9 5941-1 #### [facility] CLIA [id number] [address] [place] [address] [place] Amaya, Bld SerPl-sCncon Amaya [Moles/Vol] 0.6 mmol/L Normal 0.6-1.2 [facility] Comment on above: Order Comment: Speci men Type: BLOOD SPECIMENOrdering Facility: The [facility]ated [facility] Address: [address] [place] [address] Result Comment: Refe rence ranges and high/low indicator flags are provided as general guidelines only. The treating physician must determine appropriate target levels/dosing based on the specific clinical situation. Performed By: #### 1 4334-7 ####[facility] LAB[facility] [id number] [place] [address] [place] Prolactin SerPl-mCncon 12-04 Prolactin [Mass/Vol] 15.2 ng/mL Normal 4.4-33.8 [facility] Comment on above: Order Comment: Speci men Type: BLOOD SPECIMENOrdering Facility: [facility] Address: [address] [place] [address] Result Comment: Prol actin test is performed using the [employer] Electrochemiluminescence Immunoassay method. Results obtained with different methods or kits cannot be used interchangeably. Performed By: #### 9 5941-1 #### [facility] CLIA [id number] [address] [place] [address] [place] Renal function 2000 panelon 12-05-2023 Albumin [Mass/Vol] 4.0 g/dL Normal 3.9-4.9 [facility] Comment on above: Order Comment: Speci men Type: BLOOD SPECIMENOrdering Facility: [facility] Address: [address] [place], [place] [address] Performed By: #### 2 4362-6 ####[facility] MILLTOWNCLIA [id number] [place] [address] [place] Anion gap [Moles/Vol] 7 mmol/L Low 8-15 [facility] Comment on above: Order Comment: Speci men Type: BLOOD SPECIMENOrdering Facility: [facility] Address: [address] [place] [address] Performed By: #### 2 4362-6 ####[facility] MILLTOWNCLIA [id number] [place] [address] [place] Calcium [Mass/Vol] 9.3 mg/dL Normal 8.5-10.2 [facility] Comment on above: Order Comment: Speci men Type: BLOOD SPECIMENOrdering Facility: [facility] Address: [address] [place] [address] Performed By: #### 2 4362-6 ####[facility] MILLTOWNCLIA [id number] [place] [address] [place] Chloride [Moles/Vol] 109 mmol/L High 98-107 [facility] Comment on above: Order Comment: Speci men Type: BLOOD SPECIMENOrdering Facility: [facility] Address: [address] [place] [address] Performed By: #### 2 4362-6 ####[facility] MILLTOWNCLIA [id number] [place] [address] [place] CO2 [Moles/Vol] 23 mmol/L Normal 22-30 [facility] Comment on above: Order Comment: Speci men Type: BLOOD SPECIMENOrdering Facility: [facility] Address: [address] [place] [address] Performed By: #### 2 4362-6 ####[facility] [id number] [place] [address] [place] Creatinine [Mass/Vol] 0.62 mg/dL Normal 0.58-0.96 [facility] Comment on above: Order Comment: Speci men Type: BLOOD SPECIMENOrdering Facility: [facility] Address: [address] [place] [address] Performed By: #### 2 4362-6 ####[facility] [id number] [place] [address] [place] Creatinine and Glomerular filtration rate.predicted panel (S/P/Bld) 125 mL/min/1.73m??? Normal >=60 [facility] Comment on above: Order Comment: Speci men Type: BLOOD SPECIMENOrdering Facility: [facility] Address: [address] [place] [address] Result Comment: Tawana mated Glomerular Filtration Rate [...] actual GFR. Performed By: #### 2 4362-6 ####[facility] [id number] [place] [address] [place] Glucose [Mass/Vol] 110 mg/dL High 74-99 [facility] Comment on above: Order Comment: Speci men Type: BLOOD SPECIMENOrdering Facility: [facility] Address: [address] [place] [address] Result Comment: The [place] Diabetes Association (ADA) provides guidance for cutoff [...] Standards of Medical Care in Diabetes 2016, [place] Diabetes Association. Diabetes Care. 2016.39(Suppl 1). Performed By: #### 2 4362-6 ####[facility] MILLTOWNCLIA [id number] [place] [address] [place] Phosphate [Mass/Vol] 3.5 mg/dL Normal 2.7-4.8 [facility] Comment on above: Order Comment: Speci men Type: BLOOD SPECIMENOrdering Facility: [facility] Address: [address] [place] [address] Performed By: #### 2 4362-6 ####[facility] HOSPITALWELMERLIMer [id number] [place] [address] [place] Potassium [Moles/Vol] 4.4 mmol/L Normal 3.7-5.1 [facility] Comment on above: Order Comment: Speci men Type: BLOOD SPECIMENOrdering Facility: [facility] Address: [address] [place] [address] Performed By: #### 2 4362-6 ####[facility] HOSPITALWELMERLIA [id number] [place] [address] [place] Sodium [Moles/Vol] 139 mmol/L Normal 136-144 [facility] Comment on above: Order Comment: Speci men Type: BLOOD SPECIMENOrdering Facility: [facility] Address: [address] [place] [address] Performed By: #### 2 4362-6 ####[facility] MILLTOWNCLIA [id number] [place] [address] [place] Urea nitrogen [Mass/Vol] 16 mg/dL Normal 7-21 [facility] Comment on above: Order Comment: Speci men Type: BLOOD SPECIMENOrdering Facility: [facility] Address: [address] [place] [address] Performed By: #### 2 4362-6 ####[facility] [id number] [place] [address] [place] T4 Free SerPl-mCncon 024 Free T4 [Mass/Vol] 1.3 ng/dL Normal 0.9-1.7 [facility] Comment on above: Order Comment: Speci men Type: BLOOD SPECIMENOrdering Facility: [facility] Address: [address] [place] [address] Performed By: #### 9 5941-1 #### [facility] CLIA [id number] [address] [place] [address] [place] TSH SerPl-aCncon 12-05-2023 TSH Qn 2.940 m[IU]/L Normal 0.270-4.200 [facility] Comment on above: Order Comment: Jessica garcia Type: BLOOD SPECIMENOrdering Facility: [facility] Address: [address] [place] [address] Result Comment: If t he patient is , TSH reference range varies by gestational period: First Trimester (weeks 9-12): 0.180-2.990 mIU/L Second Trimester: 0.110-3.980 mIU/L Third Trimester: 0.480-4.710 mIU/L Polo Crystal et al. A Practical Approach for the Verifications and Determination of Site- and Trimester-Specific Reference Intervals for Thyroid Function tests in . Thyroid, 2019:29:3:412-420. Darren Ray, et al. 2017 Guidelines of the [place] Thyroid Association for the Diagnosis and Management of Thyroid Disease during and the . Thyroid, 2017:27:3:315-389. Performed By: #### 9 5941-1 #### [facility] CLIA [id number] [address] [place], [place] [address], [place] [address] [place] Wound Ctr History AND Physic harriet 12-05-2023 Wound Ctr History & Physical Normal [facility] Basic Metabolic Profile (BMP )on 11-27-2023 BUN/CRE 26.1 RATIO High 10-20 [facility] Comment on above: Performed By: #### L 501.9060, L500.2500, L300.8000 ####[facility] [address] [place], [address] CA,Total 8.9 mg/dL Normal 8.5-10.1 [facility] Comment on above: Performed By: #### L 501.9060, L500.2500, L300.8000 ####[facility] [address] [place], [address] Chloride [Moles/Vol] 110 mmol/L High 98-107 [facility] Comment on above: Performed By: #### L 501.9060, L500.2500, L300.8000 ####[facility] [address] [place], [address] CO2 [Moles/Vol] 23.0 mmol/L Normal 21.0-32.0 [facility] Comment on above: Performed By: #### L 501.9060, L500.2500, L300.8000 ####[facility] [address] [place], [address] Creatinine [Mass/Vol] 0.61 mg/dL Normal 0.55-1.02 [facility] Comment on above: Result Comment: The validity of the calculated GFR GFRAA in patients over70 years has not been determined. Clinical correlation isessential. Performed By: #### L 501.9060, L500.2500, L300.8000 ####[facility] [address] [place], [address] ECRCL 198.44 ml/min Normal [facility] Comment on above: Performed By: #### L 501.9060, L500.2500, L300.8000 ####[facility] [address] [place], [address] EST GFR - AA 150 mL/min Normal >60 [facility] Comment on above: Result Comment: Afri can Barbadian GFR Calc Performed By: #### L 501.9060, L500.2500, L300.8000 ####[facility] [address] [place], [address] GAP 4 Low 5-15 [facility] Comment on above: Performed By: #### L 501.9060, L500.2500, L300.8000 ####[facility] [address] [place], [address] GFR/1.73 sq M.predicted among non-blacks MDRD (S/P/Bld) [Vol rate/Area] 124 mL/min/{1.73_m2} Normal >60 [facility] Comment on above: Result Comment: Non- GFR Calc Performed By: #### L 501.9060, L500.2500, L300.8000 ####[facility] [address] [place], [address] Glucose [Mass/Vol] 116 mg/dL High 74-106 [facility] Comment on above: Result Comment: Fast ing Glucose result from 100 to 125 mg/dLsuggests IMPAIRED HOMEOSTASIS per A.D.A. criteria. Performed By: #### L 501.9060, L500.2500, L300.8000 ####[facility] [address] [place], [address] Potassium [Moles/Vol] 5.1 mmol/L Normal 3.5-5.1 [facility] Comment on above: Performed By: #### L 501.9060, L500.2500, L300.8000 ####[facility] [address] [place], [address] Sodium [Moles/Vol] 138 mmol/L Normal 136-145 [facility] Comment on above: Performed By: #### L 501.9060, L500.2500, L300.8000 ####[facility] [address] [place], [address] Urea nitrogen [Mass/Vol] 16 mg/dL Normal 7-18 [facility] Comment on above: Performed By: #### L 501.9060, L500.2500, L300.8000 ####[facility] [address] [place], [address] CNOVon 11-27-2023 CNOV Office Visit (UCWSTR ) -------- MARION GUTIERREZ ([id number]) 1995 F Date Time Provider Department 11/27/23 7:45 PM LOUIS SCHMIDT [facility] During your visit today, we recorded the following information about you: Louis Schmidt APRN.FINISHING [employer] 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 Performed By: #### L 501.9060, L500.2500, L300.8000 ####[facility] [address] [place], [place], [address] Emergency Department Summary on 11-27-2023 Emergency Department Summary Normal [facility] Lithiumon 11-27-2023 LI 0.40 mmol/L Low 0.60-1.20 [facility] Comment on above: Result Comment: Mode rate Hemolysis, Result may be falsely increased. Performed By: #### L 501.9060, L500.2500, L300.8000 ####[facility] [address] [place], [address] Venous Duplex US, Unilateral on 11-21-2023 Venous Duplex US, Unilateral Normal [facility] CNOVon 10-26-2023 CNOV Office Visit (ENWSTR ) -------- MARION GUTIERREZ ([id number]) 1995 F Date Time Provider Department 10/26/23 3:00 PM JEY JOHNSON ENWSTR During your visit today, we recorded the following information about you: Temperature Pulse Weight Height 97.9 degrees 61/minute 127.2 kg 1.702 m Last Period 02/19/23 Jey Johnson MD 10/26/2023 6:35 PM Signed Endocrinology and Metabolism [facility] Initial Clinic Visit Note REASON FOR CONSULT: [...] suicidal Suici (more content not 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 Normal [facility] Bedside Glucoseon 2023 FINGERSTICK GLU 90 mg/dL Normal 74-106 [facility] Comment on above: Result Comment: KENNY CASILLAS OF PATIENT CARE PER NURSING PROTOCOL Performed By: #### L 501.080 ####[facility] [address] [place], [place], [address] Colonoscopy Reporton 024 Colonoscopy Report Normal [facility] M7400.3302on 2023 M7400.3302 [facility] Comment on above: Performed By: #### M 600.5000, M7400.3302, L7000.0700 ####[facility] [address] [place], [address] MR/POSTOP.ANEon 2023 MR/POSTOP.ANE [facility] MR/VVIPYUEZ4qu 2023 MR/POSTOPAN2 [facility] Ova and Parasites 8623on OP Normal [facility] Comment on above: Performed By: #### M 600.5000, M7400.3302, L7000.0700 ####[facility] [address] [place], [address] ,Urineon 2023 Beta HCG ( test) Ql (U) Normal [facility] Comment on above: Result Comment: Canc elled via OM: Pt refuses the test Performed By: #### L 400.7600 ####[facility] [address] [place], [address] INTERNAL QC OK? Normal [facility] Comment on above: Result Comment: Canc elled via OM: Pt refuses the test Performed By: #### L 400.7600 ####[facility] [address] [place], [address] RECORD KIT LOT# Normal [facility] Comment on above: Result Comment: Canc elled via OM: Pt refuses the test Performed By: #### L 400.7600 ####[facility] [address] [place], [address] Surgery Specimen Level Kev 2023 Surgery Specimen Level IV Normal [facility] Comment on above: Performed By: #### P SUIV ####[facility] [address] [place], [address] Cardiology Visit Reporton Cardiology Visit Report Normal [facility] Catecholamines, Plasmaon DOPAMINE TNP Normal . [facility] Comment on above: Order Comment: Test( s) 901840-Astjuhyyxfj; 481047-Iabai Activity, Plasmawas developed and its performance characteristicsdetermined by [facility]. It has not been cleared or approvedby the Food and Drug Administration. Result Comment: Test not performed Performed By: #### L 3300.1800, L3430.0100, L3300.1050 ####[facility] [address] [place], [address] EPINEPHRINE TNP Normal . [facility] Comment on above: Order Comment: Test( s) 491434-Ayrorggnavf; 760885-Dmpkr Activity, Plasmawas developed and its performance characteristicsdetermined by [facility]. It has not been cleared or approvedby the Food and Drug Administration. Result Comment: Test not performed Performed By: #### L 3300.1800, L3430.0100, L3300.1050 ####[facility] [address] [place], [address] NOREPINEPHRINE TNP Normal . [facility] Comment on above: Order Comment: Test( s) 182485-Dhmitfynkrx; 921576-Olyvs Activity, Plasmawas developed and its performance characteristicsdetermined by [facility]. It has not been cleared or approvedby the Food and Drug Administration. Result Comment: Test not performed. Insufficient specimen to perform orcomplete analysis.CONTACTED VANI AT YOUR FACILITY ON 10-12-2023 Performed By: #### L 3300.1800, L3430.0100, L3300.1050 ####[facility] [address] [place], [address] Gastrin, Serumon 10-19-2023 GASTRIN 134 pg/mL High 0-115 [facility] Comment on above: Order Comment: Test( s) 939728-Nwjxvxbzlel; 789756-Lmlnv Activity, Plasmawas developed and its performance characteristicsdetermined by [facility]. It has not been cleared or approvedby the Food and Drug Administration. Result Comment: [facility] Immulite 2000 Immunochemiluminometric assay (ICMA)Values obtained with different assay methods or kits cannotbe used interchangeably. Results cannot be interpreted asabsolute evidence of the presence or absence of malignantdisease. Performed By: #### L 3300.1800, L3430.0100, L3300.1050 ####[facility] [address] [place], [address] Renin/Aldosterone Activityon 10-19-2023 ALD/RENIN RATIO 7.0 Normal 0.0-30.0 [facility] Comment on above: Order Comment: Test( s) 129682-Ynvworsiyqw; 262327-Ygoot Activity, Plasmawas developed and its performance characteristicsdetermined by [facility]. It has not been cleared or approvedby the Food and Drug Administration. Result Comment: Unit s: ng/dL per ng/mL/hr Performed By: #### L 3300.1800, L3430.0100, L3300.1050 ####[facility] [address] [place], [address] ALDOSTERONE,S 41.2 ng/dL High 0.0-30.0 [facility] Comment on above: Order Comment: Test( s) 656060-Ahyflpqanex; 430393-Vbbjg Activity, Plasmawas developed and its performance characteristicsdetermined by [facility]. It has not been cleared or approvedby the Food and Drug Administration. Performed By: #### L 3300.1800, L3430.0100, L3300.1050 ####[facility] [address] [place], [address] RENIN, PLASMA 5.892 ng/mL/hr High 0.167-5.380 [facility] Comment on above: Order Comment: Test( s) 761350-Rdqcbqxcdas; 414088-Syhmi Activity, Plasmawas developed and its performance characteristicsdetermined by [facility]. It has not been cleared or approvedby the Food and Drug Administration. Performed By: #### L 3300.1800, L3430.0100, L3300.1050 ####[facility] [address] [place], [place], [id number] Mathematics Faculty Member Office Visit Reporton 10-17-2023 Mathematics Faculty Member Office Visit Report Normal [facility] Calprotectin, Stoolon [address] 70 ug/g Normal 0-120 [facility] Comment on above: Result Comment: Conc entration Interpretation Follow-Up< 5 - 50 ug/g Normal None>50 -120 ug/g Borderline Re-evaluate in 4-6 weeks >120 ug/g Abnormal Repeat as clinically indicatedPerformed at: - [facility] [id number] Director: Harsh Harris MD, Phone: [phone] Performed By: #### M 600.5000, M7400.3302, L7000.0700 ####[facility] [address] [place], [address] Adrenocorticotropic Hormoneo n 10-15-2023 ACTH TNP Normal . [facility] Comment on above: Order Comment: N Result Comment: Test not performed. Test cancelled by Healthcare providerafter order was submitted to [facility].PATIENT WILL BE RECOLLECTEDCONTACTED ANA AT YOUR FACILITY ON [id number] reference interval for samples collected between 7 and10 AM. Performed By: #### M 100.0605, L3300.1000, M100.6796, L3430.0100, M100.637 ####[facility] [address] [place], [address] Catecholamines, Plasmaon DOPAMINE TNP Normal . [facility] Comment on above: Order Comment: N Result Comment: Test not performed Performed By: #### M 100.0605, L3300.1000, M100.6796, L3430.0100, M100.637 ####[facility] [address] [place], [address] EPINEPHRINE TNP Normal . [facility] Comment on above: Order Comment: N Result Comment: Test not performed Performed By: #### M 100.0605, L3300.1000, M100.6796, L3430.0100, M100.637 ####[facility] [address] [place], [address] NOREPINEPHRINE TNP Normal . [facility] Comment on above: Order Comment: N Result Comment: Test not performed. Test cancelled by Healthcare providerafter order was submitted to [facility].PATIENT WILL BE RECOLLECTEDCONTACTED ANA AT YOUR FACILITY ON 10-15-2023 Performed By: #### M 100.0605, L3300.1000, M100.6796, L3430.0100, M100.637 ####[facility] [address] [place], [address] CDIFF (PCR)on 10-12-2023 CDIFF Pending [phone] NAP1-B1 Presumptive Negative *for epidemiolologic???use C. Diff PCR Negative- No toxigenic C. Diff Detected Normal [facility] Comment on above: Performed By: #### M 100.0605, L3300.1000, M100.6796, L3430.0100, M100.637 ####[facility] [address] [place], [address] ENTERIC PATHOGEN PANEL STOOL on 10-12-2023 EP PANEL Normal [facility] Comment on above: Performed By: #### M 100.0605, L3300.1000, M100.6796, L3430.0100, M100.637 ####[facility] [address] [place], [address] Stool Lactoferrin/WBCon 09-20 WBCST Normal Reference Ran ge = Negative Fecal WBC Lactoferrin Negative: No Fecal WBC Lactoferrin present Normal [facility] Comment on above: Performed By: #### M 100.0605, L3300.1000, M100.6796, L3430.0100, M100.637 ####[facility] [address] [place], [address] Insulin Levelon 10-11-2023 INSULIN,FASTING 70.5 uIU/mL High 2.6-24.9 [facility] Comment on above: Order Comment: Test( s) 555159-Vqxyvhstvks; 173595-Nowsu Activity, Plasmawas developed and its performance characteristicsdetermined by [facility]. It has not been cleared or approvedby the Food and Drug Administration.N Performed By: #### L 3300.3500, L801.1541, L3100.4810, L3400.1300 ####[facility] [address] [place], [address] L3100.4810on 10-11-2023 Chromogranin A 186.2 ng/mL Abnormal 0.0-101.8 [facility] Comment on above: Order Comment: Test( s) 248881-Gitfapzfnet; 778196-Njgke Activity, Plasmawas developed and its performance characteristicsdetermined by [facility]. It has not been cleared or approvedby the Food and Drug Administration.N Result Comment: [employer] Machine Feeder mogranin A performed by [employer] KRYPTORmethodologyValues obtained with different assay methods or kits cannotbe used interchangeably. Performed By: #### L 3300.3500, L801.1541, L3100.4810, L3400.1300 ####[facility] [address] [place], [address] Somatomedin Con 10-11-2023 SOMATOMEDIN C 102 ng/mL Normal 91-308 [facility] Comment on above: Order Comment: Test( s) [id number]-Fgcayosdphe; 921274-Vwocj Activity, Plasmawas developed and its performance characteristicsdetermined by [facility]. It has not been cleared or approvedby the Food and Drug Administration.N Performed By: #### L 3300.3500, L801.1541, L3100.4810, L3400.1300 ####[facility] [address] [place], [address] Gastrin, Serumon 10-10-2023 GASTRIN 95 pg/mL Normal 0-115 [facility] Comment on above: Order Comment: DR. Shabnam HA FORV FOOT Result Comment: [facility] Immulite 2000 Immunochemiluminometric assay (ICMA)Values obtained with different assay methods or kits cannotbe used interchangeably. Results cannot be interpreted asabsolute evidence of the presence or absence of malignantdisease.Performed at: [address] [id number] Director: Harsh Harris MD, Phone: [phone] Performed By: #### L 3300.1800 ####[facility] [address] [place], [place], [id number] Gastroenterology Visit Repor ton 10-10-2023 Gastroenterology Visit Report Normal [facility] Miscellaneous Lab Procedureo n 10-09-2023 MISC LAB TEST Normal [facility] Comment on above: Order Comment: ADDED ON THE [facility] BLOODCORTISOL [id number] Result Comment: TEST RESULTS LIMITS Cortisol 8.8 ug/dL 6.2-19.4 Please Note: The reference interval and flagging for this test is for an AM collection. If this is a PM collection please use: Cortisol PM: 2.3-11.9 ___ [facility]. ORIGINAL REPORT ON FILE IN LAB CONTAINS ADDITIONAL TEST SITE INFORMATION. Performed By: #### L 3300.3500, L801.1541, L3100.4810, L3400.1300 ####[facility] [address] [place], [place], [address] Surgery Visit Reporton 10-02 Surgery Visit Report Normal [facility] Absolute lymphocyte countOrd ered By: Prseley Ibarra on 06-03-2023 Lymphocytes Auto (Unsp spec) [#/Vol] 3.04 10*3/uL 0.83-4.51 [facility] Automated lymphocyte count a s percentage of total leukocytesOrdered By: Presley Ibarra on 06-03-2023 Lymphocytes/100 WBC Auto (Unsp spec) 27.2 % 19-41 [facility] Basophil percentageOrdered B y: Presley Ibarra on 06-03-2023 Basophils/100 WBC (Bld) 0.5 % 0-1 [facility] Chloride [Moles/Vol] 108 mmol/L 98-107 [facility] Eosinophils/100 WBC (Bld) 1.5 % 0-5 [facility] Glucose [Mass/Vol] 99 mg/dL 74-106 [facility] Hemoglobin (Bld) [Mass/Vol] 12.9 g/dL 12.0-15.0 [facility] Monocytes/100 WBC (Bld) 8.1 % 0-10 [facility] Neutrophils (Bld) [#/Vol] 7.0 10*3/uL 2.0-7.7 [facility] Neutrophils/100 WBC (Bld) 62.4 % 47-70 [facility] Potassium [Moles/Vol] 3.9 mmol/L 3.5-5.1 [facility] Sodium [Moles/Vol] 140 mmol/L 136-145 [facility] WBC (Bld) [#/Vol] 11.2 10*3/uL 4.4-11.0 [facility] Determination of erythrocyte mean corpuscular volume (MCV)Ordered By: Presley Ibarra on 06-03-2023 MCV (RBC) [Entitic vol] 86.4 fL 81-99 [facility] Erythrocyte distribution wid th ratioOrdered By: Presley Ibarra on 06-03-2023 Erythrocyte distribution width (RBC) [Ratio] 14.1 % 11.6-14.6 [facility] Erythrocyte distribution wid th standard deviationOrdered By: Presley Ibarra on 06-03-2023 Erythrocyte distribution width (RBC) [Entitic vol] 44.7 fL 35.1-43.9 [facility] Hematocrit Auto (Bld) [Volum e fraction]Ordered By: Presley Ibarra on 06-03-2023 Hematocrit (Bld) [Volume fraction] 39.9 % 37-47 [facility] Immature granulocytes/100 WB C Auto (Bld)Ordered By: Presley Ibarra on 06-03-2023 Immature granulocytes/100 WBC (Bld) 0.300 % 0.0-0.9 [facility] Comment on above: IG% - Immature Granu locytes (promyelocytes, myelocytes and metamyelocytes) > 1% indicates that a LEFT SHIFT is Present. Laboratory - Chemistry and C hemistry - challengeOrdered By: Presley Ibarra on 06-03-2023 CO2 [Moles/Vol] 25.0 mmol/L 21.0-32.0 [facility] Urea nitrogen/Creatinine [Mass ratio] 17.4 mg/mg 10-20 [facility] Laboratory - Hematology and Cell countsOrdered By: Presley Ibarra on 06-03-2023 MCH (RBC) [Entitic mass] 27.9 pg 27.0-32.0 [facility] MCHC (RBC) [Mass/Vol] 32.3 g/dL 32-36 [facility] Nucleated RBC/100 WBC (Bld) [Ratio] 0 % 0-5 [facility] Platelet mean volume (Bld) [Entitic vol] 9.0 fL 6.2-12.0 [facility] Platelets (Bld) [#/Vol] 382 10*3/uL 150-450 [facility] No Panel InformationOrdered By: Presley Ibarra on 06-03-2023 D-Dimer Quantitative (PE/DVT) < 0.27 FEU/ug/m 0.27-0.49 [facility] Comment on above: NORMAL D-Dimer level (<0.50) indicates no DVT or PE. Estimated Creatinine Clearance Calc 162.22 ml/min [facility] Estimated GFR (MDRD) Amer 121 mL/min >60 [facility] Comment on above: GFR Calc Estimated GFR (MDRD) Non-Af Amer 100 mL/min >60 [facility] Comment on above: Non- GFR Calc Troponin I High Sensitivity 4 pg/mL 3.0-54.0 [facility] Comment on above: Please Note: New Renetta t Units and Gender Specific Reference Ranges. For more information see Policy Stat Procedure [place] High Sensitivity Troponin (TNIH) and attachments. RBC Auto (Bld) [#/Vol]Ordere d By: Presley Ibarra on 06-03-2023 RBC (Bld) [#/Vol] 4.62 10*6/uL 4.2-5.4 [facility] Serum or plasma calcium cherelle urement (mass/volume)Ordered By: Presley Ibarra on 06-03-2023 Calcium [Mass/Vol] 9.0 mg/dL 8.5-10.1 [facility] Serum or plasma creatinine m easurement (mass/volume)Ordered By: Presley Ibarra on 06-03-2023 Creatinine [Mass/Vol] 0.74 mg/dL 0.55-1.02 [facility] Comment on above: The validity of the calculated GFR & GFRAA in patients over 70 years has not been determined. Clinical correlation is essential. Serum or plasma thyroid stim ulating hormone (TSH) measurement (units/volume)Ordered By: Presley Ibarra on 06-03-2023 TSH Qn 4.01 uIU/mL 0.358-3.74 [facility] Serum or plasma urea nitroge n measurement (mass/volume)Ordered By: Presley Ibarra on 06-03-2023 Urea nitrogen [Mass/Vol] 13 mg/dL - [facility] Thin prep Papanicolaou smear with manual screeningOrdered By: Presley Ibarra on 06-03-2023 Thin prep Papanicolaou smear with manual screening 7 - [facility] Absolute lymphocyte countOrd ered By: Sarah Purdy on 05-08-2023 Lymphocytes Auto (Unsp spec) [#/Vol] 2.64 10*3/uL 0.83-4.51 [facility] Automated lymphocyte count a s percentage of total leukocytesOrdered By: Sarah Purdy on 05-08-2023 Lymphocytes/100 WBC Auto (Unsp spec) 23.6 % 19-41 [facility] Basophil percentageOrdered B y: Sarah Purdy on 05-08-2023 Basophils/100 WBC (Bld) 0.5 % 0-1 [facility] Bilirubin [Mass/Vol] 0.40 mg/dL 0.20-1.00 [facility] Comment on above: For patients on eltr ombopag therapy, use of Dimension [place] TBIL is not recommended. Chloride [Moles/Vol] 107 mmol/L 98-107 [facility] Eosinophils/100 WBC (Bld) 1.7 % 0-5 [facility] Glucose [Mass/Vol] 105 mg/dL 74-106 [facility] Comment on above: Fasting Glucose resu lt from 100 to 125 mg/dL suggests IMPAIRED HOMEOSTASIS per A.D.A. criteria. Hemoglobin (Bld) [Mass/Vol] 13.6 g/dL 12.0-15.0 [facility] Monocytes/100 WBC (Bld) 6.8 % 0-10 [facility] Neutrophils (Bld) [#/Vol] 7.5 10*3/uL 2.0-7.7 [facility] Neutrophils/100 WBC (Bld) 67.0 % 47-70 [facility] Potassium [Moles/Vol] 3.8 mmol/L 3.5-5.1 [facility] Protein [Mass/Vol] 7.9 g/dL 6.4-8.2 [facility] Sodium [Moles/Vol] 141 mmol/L 136-145 [facility] WBC (Bld) [#/Vol] 11.2 10*3/uL 4.4-11.0 [facility] Determination of erythrocyte mean corpuscular volume (MCV)Ordered By: Sarah Purdy on 05-08-2023 MCV (RBC) [Entitic vol] 87.9 fL 81-99 [facility] Direct bilirubinOrdered By: Sarah Purdy on 05-08-2023 Bilirubin.direct [Mass/Vol] 0.11 mg/dL 0.00-0.30 [facility] Erythrocyte distribution wid th ratioOrdered By: Sarah Purdy on 05-08-2023 Erythrocyte distribution width (RBC) [Ratio] 14.3 % 11.6-14.6 [facility] Erythrocyte distribution wid th standard deviationOrdered By: Sarah Purdy on 05-08-2023 Erythrocyte distribution width (RBC) [Entitic vol] 46.1 fL 35.1-43.9 [facility] Hematocrit Auto (Bld) [Volum e fraction]Ordered By: Sarah Purdy on 05-08-2023 Hematocrit (Bld) [Volume fraction] 44.5 % 37-47 [facility] Immature granulocytes/100 WB C Auto (Bld)Ordered By: Sarah Purdy on 05-08-2023 Immature granulocytes/100 WBC (Bld) 0.400 % 0.0-0.9 [facility] Comment on above: IG% - Immature Granu locytes (promyelocytes, myelocytes and metamyelocytes) > 1% indicates that a LEFT SHIFT is Present. Laboratory - Chemistry and C hemistry - challengeOrdered By: Sarah Purdy on 05-08-2023 ALP [Catalytic activity/Vol] 66 U/L 45-117 [facility] ALT [Catalytic activity/Vol] 39 U/L 13-56 [facility] CO2 [Moles/Vol] 26.0 mmol/L 21.0-32.0 [facility] Globulin (S) [Mass/Vol] 4.4 g/dL 2.2-4.2 [facility] Urea nitrogen/Creatinine [Mass ratio] 18.9 mg/mg 10-20 [facility] Laboratory - Hematology and Cell countsOrdered By: Sarah Purdy on 05-08-2023 MCH (RBC) [Entitic mass] 26.9 pg 27.0-32.0 [facility] MCHC (RBC) [Mass/Vol] 30.6 g/dL 32-36 [facility] Nucleated RBC/100 WBC (Bld) [Ratio] 0 % 0-5 [facility] Platelet mean volume (Bld) [Entitic vol] 9.6 fL 6.2-12.0 [facility] Platelets (Bld) [#/Vol] 408 10*3/uL 150-450 [facility] Laboratory - Microbiology an d Antimicrobial susceptibilityOrdered By: Sarah Purdy on 05-08-2023 SARS-CoV-2 (COVID-19) RNA DAMARIS+probe Ql (Unsp spec) [facility] No Panel InformationOrdered By: Sarah Purdy on 05-08-2023 Amaya Level 0.70 mmol/L 0.60-1.20 [facility] Comment on above: Moderate Hemolysis, Result may be falsely increased. Estimated Creatinine Clearance Calc 157.46 ml/min [facility] Estimated GFR (MDRD) Amer 122 mL/min >60 [facility] Comment on above: GFR Calc Estimated GFR (MDRD) Non-Af Amer 100 mL/min >60 [facility] Comment on above: Non- GFR Calc RBC Auto (Bld) [#/Vol]Ordere d By: Sarah Purdy on 05-08-2023 RBC (Bld) [#/Vol] 5.06 10*6/uL 4.2-5.4 [facility] Serum or plasma calcium cherelle urement (mass/volume)Ordered By: Sarah Purdy on 05-08-2023 Calcium [Mass/Vol] 9.1 mg/dL 8.5-10.1 [facility] Serum or plasma choriogonado tropin detectionOrdered By: Sarah Purdy on 05-08-2023 HCG ( test) Ql Negative [facility] Serum or plasma creatinine m easurement (mass/volume)Ordered By: Sarah Purdy on 05-08-2023 Creatinine [Mass/Vol] 0.74 mg/dL 0.55-1.02 [facility] Comment on above: The validity of the calculated GFR & GFRAA in patients over 70 years has not been determined. Clinical correlation is essential. Serum or plasma urea nitroge n measurement (mass/volume)Ordered By: Sarah Purdy on 05-08-2023 Urea nitrogen [Mass/Vol] 14 mg/dL 7-18 [facility] Thin prep Papanicolaou smear with manual screeningOrdered By: Sarah Purdy on 05-08-2023 Thin prep Papanicolaou smear with manual screening 3.5 g/dL 3.2-5.0 [facility] Thin prep Papanicolaou smear with manual screening 16 U/L 15-37 [facility] Thin prep Papanicolaou smear with manual screening 8 5-15 [facility] Absolute lymphocyte countOrd ered By: Lianet Worrell on 04-07-2023 Lymphocytes Auto (Unsp spec) [#/Vol] 2.28 10*3/uL 0.83-4.51 [facility] Automated lymphocyte count a s percentage of total leukocytesOrdered By: Lianet Worrell on 04-07-2023 Lymphocytes/100 WBC Auto (Unsp spec) 24.6 % 19-41 [facility] Basophil percentageOrdered B y: Lianet Worrell on 04-07-2023 Basophils/100 WBC (Bld) 0.5 % 0-1 [facility] Chloride [Moles/Vol] 113 mmol/L 98-107 [facility] Eosinophils/100 WBC (Bld) 1.0 % 0-5 [facility] Glucose [Mass/Vol] 122 mg/dL 74-106 [facility] Comment on above: Fasting Glucose resu lt from 100 to 125 mg/dL suggests IMPAIRED HOMEOSTASIS per A.D.A. criteria. Hemoglobin (Bld) [Mass/Vol] 12.7 g/dL 12.0-15.0 [facility] Monocytes/100 WBC (Bld) 7.3 % 0-10 [facility] Neutrophils (Bld) [#/Vol] 6.1 10*3/uL 2.0-7.7 [facility] Neutrophils/100 WBC (Bld) 66.2 % 47-70 [facility] Potassium [Moles/Vol] 3.8 mmol/L 3.5-5.1 [facility] Sodium [Moles/Vol] 140 mmol/L 136-145 [facility] WBC (Bld) [#/Vol] 9.3 10*3/uL 4.4-11.0 [facility] Determination of erythrocyte mean corpuscular volume (MCV)Ordered By: Lianet Worrell on 04-07-2023 MCV (RBC) [Entitic vol] 86.5 fL 81-99 [facility] Erythrocyte distribution wid th ratioOrdered By: Lianet Worrell on 04-07-2023 Erythrocyte distribution width (RBC) [Ratio] 13.9 % 11.6-14.6 [facility] Erythrocyte distribution wid th standard deviationOrdered By: Lianet Worrell on 04-07-2023 Erythrocyte distribution width (RBC) [Entitic vol] 43.9 fL 35.1-43.9 [facility] Hematocrit Auto (Bld) [Volum e fraction]Ordered By: Lianet Worrell on 04-07-2023 Hematocrit (Bld) [Volume fraction] 40.4 % 37-47 [facility] Immature granulocytes/100 WB C Auto (Bld)Ordered By: Lianet Worrell on 04-07-2023 Immature granulocytes/100 WBC (Bld) 0.400 % 0.0-0.9 [facility] Comment on above: IG% - Immature Granu locytes (promyelocytes, myelocytes and metamyelocytes) > 1% indicates that a LEFT SHIFT is Present. Laboratory - Chemistry and C hemistry - challengeOrdered By: Lianet Worrell on 04-07-2023 CO2 [Moles/Vol] 23.0 mmol/L 21.0-32.0 [facility] Urea nitrogen/Creatinine [Mass ratio] 15.8 mg/mg 10-20 [facility] Laboratory - Drug toxicology Ordered By: Lianet Worrell on 04-07-2023 Amphetamines Ql (U) Negative <1000 ng/mL [facility] Benzodiazepines Ql (U) Negative < 200 ng/mL [facility] Cannabinoids Screen Ql (U) Negative < 50 ng/mL [facility] Cocaine Ql (U) Negative < 300 ng/mL [facility] Opiates Ql (U) Negative < 300 ng/mL [facility] Laboratory - Hematology and Cell countsOrdered By: Lianet Worrell on 04-07-2023 MCH (RBC) [Entitic mass] 27.2 pg 27.0-32.0 [facility] MCHC (RBC) [Mass/Vol] 31.4 g/dL 32-36 [facility] Nucleated RBC/100 WBC (Bld) [Ratio] 0 % 0-5 [facility] Platelet mean volume (Bld) [Entitic vol] 9.0 fL 6.2-12.0 [facility] Platelets (Bld) [#/Vol] 340 10*3/uL 150-450 [facility] Laboratory - Microbiology an d Antimicrobial susceptibilityOrdered By: Lianet Worrell on 04-07-2023 SARS-CoV-2 (COVID-19) RNA DAMARIS+probe Ql (Unsp spec) [facility] SARS-CoV-2 (COVID-19) RNA DAMARIS+probe Ql (Unsp spec) [facility] No Panel InformationOrdered By: Lianet Worrell on 04-07-2023 MDMA (Ecstasy) Screen Negative < 500 ng/mL [facility] Urine Barbiturates Screen Negative < 200 ng/mL [facility] Urine Drug Screen Comment [facility] Comment on above: CONFIRMATORY TESTING FOR [...] Methadone Screen Negative < 300 ng/mL [facility] Estimated Creatinine Clearance Calc 170.69 ml/min [facility] Estimated GFR (MDRD) Amer 130 mL/min >60 [facility] Comment on above: GFR Calc Estimated GFR (MDRD) Non-Af Amer 108 mL/min >60 [facility] Comment on above: Non- GFR Calc Ethyl Alcohol Level < 3.0 mg/dL [facility] Comment on above: The serum:whole bloo d ethanol ratio is approximately 1.14and varies slightly with hematocrit. Medical Alcohol reference interval and critical value innon-tolerant individuals; 50 - 100 Impairment 100 Intoxication 100 - 250 Severe Poisoning 250 - 400 Deep/possible fatal coma RBC Auto (Bld) [#/Vol]Ordere d By: Lianet Worrell on 04-07-2023 RBC (Bld) [#/Vol] 4.67 10*6/uL 4.2-5.4 [facility] Serum or plasma calcium cherelle urement (mass/volume)Ordered By: Lianet Worrell on 04-07-2023 Calcium [Mass/Vol] 9.4 mg/dL 8.5-10.1 [facility] Serum or plasma choriogonado tropin detectionOrdered By: Lianet Worrell on 04-07-2023 HCG ( test) Ql Negative [facility] Serum or plasma creatinine m easurement (mass/volume)Ordered By: Lianet Worrell on 04-07-2023 Creatinine [Mass/Vol] 0.70 mg/dL 0.55-1.02 [facility] Comment on above: The validity of the calculated GFR & GFRAA in patients over 70 years has not been determined. Clinical correlation is essential. Serum or plasma urea nitroge n measurement (mass/volume)Ordered By: Lianet Worrell on 04-07-2023 Urea nitrogen [Mass/Vol] 11 mg/dL 7-18 [facility] Thin prep Papanicolaou smear with manual screeningOrdered By: Lianet Worrell on 04-07-2023 Thin prep Papanicolaou smear with manual screening 4 5-15 [facility] Urine phencyclidine (PCP) de tectionOrdered By: Lianet Worrell on 04-07-2023 Phencyclidine Ql (U) Negative < 25 ng/mL [facility] Absolute lymphocyte countOrd ered By: Andreasneal Oliva on 01-30-2023 Lymphocytes Auto (Unsp spec) [#/Vol] 2.23 10*3/uL 0.83-4.51 [facility] Basophil percentageOrdered B y: Andreas Oliva on 01-30-2023 Basophils/100 WBC (Bld) 0.8 % 0-1 [facility] Bilirubin [Mass/Vol] 0.40 mg/dL 0.20-1.00 [facility] Comment on above: For patients on eltr ombopag therapy, use of Dimension [place] TBIL is not recommended. Chloride [Moles/Vol] 108 mmol/L 98-107 [facility] Cholesterol [Mass/Vol] 170 mg/dL <200 [facility] Comment on above: <200 mg/dL Desirable 200-240 mg/dL Borderline >240 mg/dL High Risk Eosinophils/100 WBC (Bld) 1.0 % 0-5 [facility] Glucose [Mass/Vol] 95 mg/dL 74-106 [facility] Neutrophils (Bld) [#/Vol] 7.5 10*3/uL 2.0-7.7 [facility] Neutrophils/100 WBC (Bld) 70.2 % 47-70 [facility] Potassium [Moles/Vol] 4.1 mmol/L 3.5-5.1 [facility] Protein [Mass/Vol] 7.5 g/dL 6.4-8.2 [facility] Sodium [Moles/Vol] 139 mmol/L 136-145 [facility] Triglyceride [Mass/Vol] 120 mg/dL <199 [facility] Comment on above: The drugs N-Acetylcy steine and Metamizole may falsely depress this assay.Serum Triglycerides Reference Interval Normal <150 mg/dL Borderline high 150 - 199 mg/dL High 200 - 499 mg/dL Very High > or = 500 mg/dL WBC (Bld) [#/Vol] 10.6 10*3/uL 4.4-11.0 [facility] Blood erythrocytes count (nu mber/volume)Ordered By: Andreas Oliva on 01-30-2023 RBC (Bld) [#/Vol] 4.57 10*6/uL 4.2-5.4 [facility] Blood hemoglobin measurement (mass/volume)Ordered By: Andreas Oliva on 01-30-2023 Hemoglobin (Bld) [Mass/Vol] 12.9 g/dL 12.0-15.0 [facility] Blood lymphocytes/100 leukoc ytesOrdered By: Andreas Oliva on 01-30-2023 Lymphocytes/100 WBC (Bld) 21.0 % 19-41 [facility] Blood monocytes/100 leukocyt esOrdered By: Andreas Oliva on 01-30-2023 Monocytes/100 WBC (Bld) 6.6 % 0-10 [facility] Blood platelet mean volumeOr dered By: Andreas Oliva on 01-30-2023 Platelet mean volume (Bld) [Entitic vol] 9.1 fL 6.2-12.0 [facility] Determination of erythrocyte mean corpuscular volume (MCV)Ordered By: Andreas Oliva on 01-30-2023 MCV (RBC) [Entitic vol] 91.9 fL 81-99 [facility] Erythrocyte sedimentation ra teOrdered By: Andreas Oliva on 01-30-2023 ESR (Bld) [Velocity] 24 mm/h 0-30 [facility] Hematocrit Auto (Bld) [Volum e fraction]Ordered By: Andreas Oliva on 01-30-2023 Hematocrit (Bld) [Volume fraction] 42.0 % 37-47 [facility] Laboratory - Chemistry and C hemistry - challengeOrdered By: Andreas Oliva on 01-30-2023 ALP [Catalytic activity/Vol] 59 U/L 45-117 [facility] ALT [Catalytic activity/Vol] 29 U/L 13-56 [facility] CO2 [Moles/Vol] 26.0 mmol/L 21.0-32.0 [facility] Globulin (S) [Mass/Vol] 4.2 g/dL 2.2-4.2 [facility] Urea nitrogen/Creatinine [Mass ratio] 23.6 mg/mg 10-20 [facility] Laboratory - Hematology and Cell countsOrdered By: Andreas Oliva on 01-30-2023 Erythrocyte distribution width (RBC) [Entitic vol] 45.3 fL 35.1-43.9 [facility] Erythrocyte distribution width (RBC) [Ratio] 13.3 % 11.6-14.6 [facility] Immature granulocytes/100 WBC (Bld) 0.400 % 0.0-0.9 [facility] Comment on above: IG% - Immature Granu locytes (promyelocytes, myelocytes and metamyelocytes) > 1% indicates that a LEFT SHIFT is Present. MCH (RBC) [Entitic mass] 28.2 pg 27.0-32.0 [facility] Nucleated RBC/100 WBC (Bld) [Ratio] 0 % 0-5 [facility] MCHC Auto (RBC) [Mass/Vol]Or dered By: Andreas Oliva on 01-30-2023 MCHC (RBC) [Mass/Vol] 30.7 g/dL 32-36 [facility] No Panel InformationOrdered By: Andreas Oliva on 01-30-2023 Estimated GFR (MDRD) Amer 135 mL/min >60 [facility] Comment on above: GFR Calc Estimated GFR (MDRD) Non-Af Amer 112 mL/min >60 [facility] Comment on above: Non- GFR Calc Thyroid Stimulating Hormone (TSH) 2.19 uIU/mL 0.358-3.74 [facility] Platelets bldOrdered By: Mello Oliva on 01-30-2023 Platelets (Bld) [#/Vol] 403 10*3/uL 150-450 [facility] Serum or plasma C reactive p rotein measurement (mass/volume)Ordered By: Andreas Oliva on 01-30-2023 CRP [Mass/Vol] 11.40 mg/L 0.0-3.0 [facility] Comment on above: C-Reactive Protein ( CRP) provides useful information for thediagnosis, therapy and monitoring of inflammatory processesand associated diseases. For the evaluation of Relative Riskfor Cardiovascular Disease, a High Sensitivity CRP (HSCRP)should be ordered. Serum or plasma albumin cherelle urement (mass/volume)Ordered By: Andreas Oliva on 01-30-2023 Albumin [Mass/Vol] 3.3 g/dL 3.2-5.0 [facility] Serum or plasma albumin/glob ulin mass ratioOrdered By: Andreas Oliva on 01-30-2023 Albumin/Globulin [Mass ratio] 0.8 {ratio} 0.9-2.4 [facility] Serum or plasma calcium cherelle urement (mass/volume)Ordered By: Andreas Oliva on 01-30-2023 Calcium [Mass/Vol] 8.8 mg/dL 8.5-10.1 [facility] Serum or plasma cholesterol in HDL measurement (mass/volume)Ordered By: Andreas Oliva on 01-30-2023 Cholesterol in HDL [Mass/Vol] 38 mg/dL >40 [facility] Comment on above: The drugs N-Acetylcy steine and Metamizole may falsely depress this assay. Reference Range HDL <40 mg/dL Low HDL Cholesterol HDL >or= 60 mg/dL High HDL Cholesterol Serum or plasma cholesterol in VLDL measurement (mass/volume)Ordered By: Andreas Oliva on 01-30-2023 Cholesterol in VLDL [Mass/Vol] 24 mg/dL 5-40 [facility] Serum or plasma creatinine m easurement (mass/volume)Ordered By: Andreas Oliva on 01-30-2023 Creatinine [Mass/Vol] 0.68 mg/dL 0.55-1.02 [facility] Comment on above: The validity of the calculated GFR & GFRAA in patients over 70 years has not been determined. Clinical correlation is essential. Serum or plasma low density lipoprotein (LDL) cholesterol measurement (mass/volume)Ordered By: Andreas Oliva on 01-30-2023 Cholesterol in LDL [Mass/Vol] 108 mg/dL 0-130 [facility] Serum or plasma urea nitroge n measurement (mass/volume)Ordered By: Andreas Oliva on 01-30-2023 Urea nitrogen [Mass/Vol] 16 mg/dL 7-18 [facility] Thin prep Papanicolaou smear with manual screeningOrdered By: Andreas Oliva on 01-30-2023 Thin prep Papanicolaou smear with manual screening 10 U/L 15-37 [facility] Thin prep Papanicolaou smear with manual screening 5 5-15 [facility] Whole blood hemoglobin A1c/t otal hemoglobin ratio (mass fraction)Ordered By: Andreas Oliva on 01-30-2023 HbA1c (Bld) [Mass fraction] 5.1 % 3.8-5.6 [facility] Comment on above: Normal < 5.7 % Predi abetic 5.7 - 6.4 % Diabetic >or= 6.5 % Please note range changes. Absolute lymphocyte countOrd ered By: Laura Li on 12-20-2022 Lymphocytes Auto (Unsp spec) [#/Vol] 2.18 10*3/uL 0.83-4.51 [facility] Basophil percentageOrdered B y: Laura Li on 12-20-2022 Basophils/100 WBC (Bld) 0.6 % 0-1 [facility] Chloride [Moles/Vol] 110 mmol/L 98-107 [facility] Eosinophils/100 WBC (Bld) 2.0 % 0-5 [facility] Glucose [Mass/Vol] 109 mg/dL 74-106 [facility] Comment on above: Fasting Glucose resu lt from 100 to 125 mg/dL suggests IMPAIRED HOMEOSTASIS per A.D.A. criteria. Neutrophils (Bld) [#/Vol] 3.6 10*3/uL 2.0-7.7 [facility] Neutrophils/100 WBC (Bld) 55.7 % 47-70 [facility] Potassium [Moles/Vol] 3.6 mmol/L 3.5-5.1 [facility] Sodium [Moles/Vol] 140 mmol/L 136-145 [facility] WBC (Bld) [#/Vol] 6.4 10*3/uL 4.4-11.0 [facility] Blood erythrocytes count (nu mber/volume)Ordered By: Laura Li on 12-20-2022 RBC (Bld) [#/Vol] 3.98 10*6/uL 4.2-5.4 [facility] Blood hemoglobin measurement (mass/volume)Ordered By: Laura Li on 12-20-2022 Hemoglobin (Bld) [Mass/Vol] 11.5 g/dL 12.0-15.0 [facility] Blood lymphocytes/100 leukoc ytesOrdered By: Laura Li on 12-20-2022 Lymphocytes/100 WBC (Bld) 34.0 % 19-41 [facility] Blood monocytes/100 leukocyt esOrdered By: Laura Li on 12-20-2022 Monocytes/100 WBC (Bld) 7.5 % 0-10 [facility] Blood platelet mean volumeOr dered By: Laura Li on 12-20-2022 Platelet mean volume (Bld) [Entitic vol] 9.1 fL 6.2-12.0 [facility] Determination of erythrocyte mean corpuscular volume (MCV)Ordered By: Laura Li on 12-20-2022 MCV (RBC) [Entitic vol] 91.2 fL 81-99 [facility] Hematocrit Auto (Bld) [Volum e fraction]Ordered By: Laura Li on 12-20-2022 Hematocrit (Bld) [Volume fraction] 36.3 % 37-47 [facility] Laboratory - Chemistry and C hemistry - challengeOrdered By: Laura Li on 12-20-2022 CO2 [Moles/Vol] 24.0 mmol/L 21.0-32.0 [facility] Magnesium [Mass/Vol] 2.2 mg/dL 1.6-2.6 [facility] Urea nitrogen/Creatinine [Mass ratio] 20.0 mg/mg 10-20 [facility] - Hematology and Cell countsOrdered By: Laura Li on 12-20-2022 Erythrocyte distribution width (RBC) [Entitic vol] 44.9 fL 35.1-43.9 [facility] Erythrocyte distribution width (RBC) [Ratio] 13.3 % 11.6-14.6 [facility] Immature granulocytes/100 WBC (Bld) 0.200 % 0.0-0.9 [facility] Comment on above: IG% - Immature Granu locytes (promyelocytes, myelocytes and metamyelocytes) > 1% indicates that a LEFT SHIFT is Present. MCH (RBC) [Entitic mass] 28.9 pg 27.0-32.0 [facility] Nucleated RBC/100 WBC (Bld) [Ratio] 0 % 0-5 [facility] MCHC Auto (RBC) [Mass/Vol]Or dered By: Laura Li on 12-20-2022 MCHC (RBC) [Mass/Vol] 31.7 g/dL 32-36 [facility] No Panel InformationOrdered By: Laura Li on 12-20-2022 Estimated Creatinine Clearance Calc 133.01 ml/min [facility] Estimated GFR (MDRD) Amer 155 mL/min >60 [facility] Comment on above: GFR Calc Estimated GFR (MDRD) Non-Af Amer 128 mL/min >60 [facility] Comment on above: Non- GFR Calc Platelets bldOrdered By: Lc Li on 12-20-2022 Platelets (Bld) [#/Vol] 322 10*3/uL 150-450 [facility] Serum or plasma calcium cherelle urement (mass/volume)Ordered By: Laura Li on 12-20-2022 Calcium [Mass/Vol] 8.5 mg/dL 8.5-10.1 [facility] Serum or plasma cortisol burton surement (mass/volume)Ordered By: Laura Li on 12-20-2022 Cortisol [Mass/Vol] 13.40 ug/dL 3.44-22.45 [facility] Comment on above: Adult (AM) 5.27 - 22 .45 ug/dL Adult (PM) 3.44 - 16.76 ug/dLPlease note revised CORTISOL reference range effective 2019. Serum or plasma creatinine m easurement (mass/volume)Ordered By: Laura Li on 12-20-2022 Creatinine [Mass/Vol] 0.60 mg/dL 0.55-1.02 [facility] Comment on above: The validity of the calculated GFR & GFRAA in patients over 70 years has not been determined. Clinical correlation is essential. Serum or plasma urea nitroge n measurement (mass/volume)Ordered By: Laura Li on 12-20-2022 Urea nitrogen [Mass/Vol] 12 mg/dL 7-18 [facility] Thin prep Papanicolaou smear with manual screeningOrdered By: Laura Li on 12-20-2022 Thin prep Papanicolaou smear with manual screening 6 5-15 [facility] Absolute lymphocyte countOrd ered By: Presley Ibarra on 12-18-2022 Lymphocytes Auto (Unsp spec) [#/Vol] 2.03 10*3/uL 0.83-4.51 [facility] Basophil percentageOrdered B y: Presley Ibarra on 12-18-2022 Basophils/100 WBC (Bld) 0.5 % 0-1 [facility] Chloride [Moles/Vol] 108 mmol/L 98-107 [facility] Eosinophils/100 WBC (Bld) 0.7 % 0-5 [facility] Glucose [Mass/Vol] 107 mg/dL 74-106 [facility] Comment on above: Fasting Glucose resu lt from 100 to 125 mg/dL suggests IMPAIRED HOMEOSTASIS per A.D.A. criteria. Neutrophils (Bld) [#/Vol] 8.3 10*3/uL 2.0-7.7 [facility] Neutrophils/100 WBC (Bld) 73.9 % 47-70 [facility] Potassium [Moles/Vol] 4.1 mmol/L 3.5-5.1 [facility] Sodium [Moles/Vol] 140 mmol/L 136-145 [facility] WBC (Bld) [#/Vol] 11.2 10*3/uL 4.4-11.0 [facility] Blood erythrocytes count (nu mber/volume)Ordered By: Presley Ibarra on 12-18-2022 RBC (Bld) [#/Vol] 4.50 10*6/uL 4.2-5.4 [facility] Blood hemoglobin measurement (mass/volume)Ordered By: Presley Ibarra on 12-18-2022 Hemoglobin (Bld) [Mass/Vol] 12.9 g/dL 12.0-15.0 [facility] Blood lymphocytes/100 leukoc ytesOrdered By: Presley Ibarra on 12-18-2022 Lymphocytes/100 WBC (Bld) 18.1 % 19-41 [facility] Blood monocytes/100 leukocyt esOrdered By: Presley Ibarra on 12-18-2022 Monocytes/100 WBC (Bld) 6.4 % 0-10 [facility] Blood platelet mean volumeOr dered By: Presley Ibarra on 12-18-2022 Platelet mean volume (Bld) [Entitic vol] 9.0 fL 6.2-12.0 [facility] Determination of erythrocyte mean corpuscular volume (MCV)Ordered By: Presley Ibarra on 12-18-2022 MCV (RBC) [Entitic vol] 91.1 fL 81-99 [facility] Hematocrit Auto (Bld) [Volum e fraction]Ordered By: Presley Ibarra on 12-18-2022 Hematocrit (Bld) [Volume fraction] 41.0 % 37-47 [facility] - Chemistry and C hemistry - challengeOrdered By: Presley Ibarra on 12-18-2022 CO2 [Moles/Vol] 29.0 mmol/L 21.0-32.0 [facility] Urea nitrogen/Creatinine [Mass ratio] 17.9 mg/mg 10-20 [facility] - Hematology and Cell countsOrdered By: Presley Ibarra on 12-18-2022 Erythrocyte distribution width (RBC) [Entitic vol] 46.5 fL 35.1-43.9 [facility] Erythrocyte distribution width (RBC) [Ratio] 13.7 % 11.6-14.6 [facility] Immature granulocytes/100 WBC (Bld) 0.400 % 0.0-0.9 [facility] Comment on above: IG% - Immature Granu locytes (promyelocytes, myelocytes and metamyelocytes) > 1% indicates that a LEFT SHIFT is Present. MCH (RBC) [Entitic mass] 28.7 pg 27.0-32.0 [facility] Nucleated RBC/100 WBC (Bld) [Ratio] 0 % 0-5 [facility] MCHC Auto (RBC) [Mass/Vol]Or dered By: Presley Ibarra on 12-18-2022 MCHC (RBC) [Mass/Vol] 31.5 g/dL 32-36 [facility] No Panel InformationOrdered By: Presley Ibarra on 12-18-2022 Amaya Level 0.60 mmol/L 0.60-1.20 [facility] D-Dimer Quantitative (PE/DVT) < 0.27 FEU/ug/m 0.27-0.49 [facility] Comment on above: NORMAL D-Dimer level (<0.50) indicates no DVT or PE. Estimated GFR (MDRD) Amer 137 mL/min >60 [facility] Comment on above: GFR Calc Estimated GFR (MDRD) Non-Af Amer 113 mL/min >60 [facility] Comment on above: Non- GFR Calc Troponin I High Sensitivity 3 pg/mL 3.0-54.0 [facility] Comment on above: Please Note: New Renetta t Units and Gender Specific Reference Ranges. For more information see Policy Stat Procedure [place] High Sensitivity Troponin (TNIH) and attachments. Platelets bldOrdered By: Jada Ibarra on 12-18-2022 Platelets (Bld) [#/Vol] 404 10*3/uL 150-450 [facility] Serum or plasma calcium cherelle urement (mass/volume)Ordered By: Presley Ibarra on 12-18-2022 Calcium [Mass/Vol] 9.2 mg/dL 8.5-10.1 [facility] Serum or plasma creatinine m easurement (mass/volume)Ordered By: Presley Ibarra on 12-18-2022 Creatinine [Mass/Vol] 0.67 mg/dL 0.55-1.02 [facility] Comment on above: The validity of the calculated GFR & GFRAA in patients over 70 years has not been determined. Clinical correlation is essential. Serum or plasma urea nitroge n measurement (mass/volume)Ordered By: Presley Ibarra on 12-18-2022 Urea nitrogen [Mass/Vol] 12 mg/dL 7-18 [facility] Thin prep Papanicolaou smear with manual screeningOrdered By: Presley Ibarra on 12-18-2022 Thin prep Papanicolaou smear with manual screening 3 5-15 [facility] Basophil percentageOrdered B y: DANIEL BETANCUR on 12-12-2022 Bilirubin [Mass/Vol] 0.80 mg/dL 0.20-1.00 [facility] Comment on above: For patients on eltr ombopag therapy, use of Dimension [place] TBIL is not recommended. Chloride [Moles/Vol] 105 mmol/L 98-107 [facility] Glucose [Mass/Vol] 96 mg/dL 74-106 [facility] Potassium [Moles/Vol] 4.4 mmol/L 3.5-5.1 [facility] Protein [Mass/Vol] 7.5 g/dL 6.4-8.2 [facility] Sodium [Moles/Vol] 140 mmol/L 136-145 [facility] Laboratory - Chemistry and C hemistry - challengeOrdered By: [facility] on 12-12-2022 ALP [Catalytic activity/Vol] 74 U/L 45-117 [facility] ALT [Catalytic activity/Vol] 54 U/L 13-56 [facility] CO2 [Moles/Vol] 28.0 mmol/L 21.0-32.0 [facility] Globulin (S) [Mass/Vol] 3.8 g/dL 2.2-4.2 [facility] Lipase [Catalytic activity/Vol] 32 U/L 13-75 [facility] Comment on above: Please note:LIPASE r evised reference range effective 22. New Lipase methodology. Expected to produce lower values than the previous assay method. NEW Reference Range: 13 - 75 U/L Urea nitrogen/Creatinine [Mass ratio] 12.5 mg/mg 10-20 [facility] No Panel InformationOrdered By: [facility] on 12-12-2022 Estimated GFR (MDRD) Amer 111 mL/min >60 [facility] Comment on above: GFR Calc Estimated GFR (MDRD) Non-Af Amer 92 mL/min >60 [facility] Comment on above: Non- GFR Calc Insulin Level 80.9 mU/L 2.6-37.6 [facility] Amaya Level 0.60 mmol/L 0.60-1.20 [facility] Serum or plasma albumin cherelle urement (mass/volume)Ordered By: [facility] on 12-12-2022 Albumin [Mass/Vol] 3.7 g/dL 3.2-5.0 [facility] Serum or plasma albumin/glob ulin mass ratioOrdered By: [facility] on 12-12-2022 Albumin/Globulin [Mass ratio] 1.0 {ratio} 0.9-2.4 [facility] Serum or plasma calcium cherelle urement (mass/volume)Ordered By: [facility] on 12-12-2022 Calcium [Mass/Vol] 9.5 mg/dL 8.5-10.1 [facility] Serum or plasma creatinine m easurement (mass/volume)Ordered By: [facility] on 12-12-2022 Creatinine [Mass/Vol] 0.80 mg/dL 0.55-1.02 [facility] Comment on above: The validity of the calculated GFR & GFRAA in patients over 70 years has not been determined. Clinical correlation is essential. Serum or plasma urea nitroge n measurement (mass/volume)Ordered By: [facility] on 12-12-2022 Urea nitrogen [Mass/Vol] 10 mg/dL 7-18 [facility] Thin prep Papanicolaou smear with manual screeningOrdered By: [facility] on 12-12-2022 Thin prep Papanicolaou smear with manual screening 21 U/L 15-37 [facility] Thin prep Papanicolaou smear with manual screening 7 5-15 [facility] Absolute lymphocyte countOrd ered By: Rodolfo Das on 12-09-2022 Lymphocytes Auto (Unsp spec) [#/Vol] 2.14 10*3/uL 0.83-4.51 [facility] Basophil percentageOrdered B y: Rodolfo Das on 12-09-2022 Basophil percentage 5-10 SEEN /hpf 0-5 [facility] Basophils/100 WBC (Bld) 0.5 % 0-1 [facility] Bilirubin [Mass/Vol] 0.70 mg/dL 0.20-1.00 [facility] Comment on above: For patients on eltr ombopag therapy, use of Dimension [place] TBIL is not recommended. Chloride [Moles/Vol] 106 mmol/L 98-107 [facility] Eosinophils/100 WBC (Bld) 0.7 % 0-5 [facility] Glucose [Mass/Vol] 91 mg/dL 74-106 [facility] Neutrophils (Bld) [#/Vol] 7.5 10*3/uL 2.0-7.7 [facility] Neutrophils/100 WBC (Bld) 71.2 % 47-70 [facility] Potassium [Moles/Vol] 4.3 mmol/L 3.5-5.1 [facility] Protein [Mass/Vol] 7.6 g/dL 6.4-8.2 [facility] Sodium [Moles/Vol] 138 mmol/L 136-145 [facility] WBC (Bld) [#/Vol] 10.5 10*3/uL 4.4-11.0 [facility] Beta hCG serum qualOrdered B y: Rodolfo Das on 12-09-2022 Beta HCG ( test) Ql Negative [facility] Bilirubin Test strip Ql (U)O rdered By: Rodolfo Das on 12-09-2022 Bilirubin Ql (U) Negative Negative [facility] Blood erythrocytes count (nu mber/volume)Ordered By: Rodolfo Das on 12-09-2022 RBC (Bld) [#/Vol] 4.66 10*6/uL 4.2-5.4 [facility] Blood hemoglobin measurement (mass/volume)Ordered By: Rodolfo Das on 12-09-2022 Hemoglobin (Bld) [Mass/Vol] 13.4 g/dL 12.0-15.0 [facility] Blood lymphocytes/100 leukoc ytesOrdered By: Rodolfo Das on 12-09-2022 Lymphocytes/100 WBC (Bld) 20.4 % 19-41 [facility] Blood monocytes/100 leukocyt esOrdered By: Rodolfo Das on 12-09-2022 Monocytes/100 WBC (Bld) 6.9 % 0-10 [facility] Blood platelet mean volumeOr dered By: Rodolfo Das on 12-09-2022 Platelet mean volume (Bld) [Entitic vol] 8.9 fL 6.2-12.0 [facility] Culture, urineOrdered By: Vj Das on 12-09-2022 Bacteria identified Cx Nom (U) Positive [facility] Bacteria identified Cx Nom (U) Positive [facility] Determination of erythrocyte mean corpuscular volume (MCV)Ordered By: Rodolfo Das on 12-09-2022 MCV (RBC) [Entitic vol] 89.9 fL 81-99 [facility] Hematocrit Auto (Bld) [Volum e fraction]Ordered By: Rodolfo Das on 12-09-2022 Hematocrit (Bld) [Volume fraction] 41.9 % 37-47 [facility] Ketones Test strip Ql (U)Ord ered By: Rodolfo Das on 12-09-2022 Ketones Ql (U) 5 mg/dl Negative [facility] Laboratory - Chemistry and C hemistry - challengeOrdered By: Rodolfo Das on 12-09-2022 ALP [Catalytic activity/Vol] 69 U/L 45-117 [facility] ALT [Catalytic activity/Vol] 52 U/L 13-56 [facility] CO2 [Moles/Vol] 28.0 mmol/L 21.0-32.0 [facility] Globulin (S) [Mass/Vol] 4.0 g/dL 2.2-4.2 [facility] Lipase [Catalytic activity/Vol] 50 U/L 13-75 [facility] Comment on above: Please note:LIPASE r evised reference range effective 22. New Lipase methodology. Expected to produce lower values than the previous assay method. NEW Reference Range: 13 - 75 U/L Urea nitrogen/Creatinine [Mass ratio] 18.9 mg/mg 10-20 [facility] Laboratory - Hematology and Cell countsOrdered By: Rodolfo Das on 12-09-2022 Erythrocyte distribution width (RBC) [Entitic vol] 45.8 fL 35.1-43.9 [facility] Erythrocyte distribution width (RBC) [Ratio] 13.9 % 11.6-14.6 [facility] Immature granulocytes/100 WBC (Bld) 0.300 % 0.0-0.9 [facility] Comment on above: IG% - Immature Granu locytes (promyelocytes, myelocytes and metamyelocytes) > 1% indicates that a LEFT SHIFT is Present. MCH (RBC) [Entitic mass] 28.8 pg 27.0-32.0 [facility] Nucleated RBC/100 WBC (Bld) [Ratio] 0 % 0-5 [facility] MCHC Auto (RBC) [Mass/Vol]Or dered By: Rodolfo Das on 12-09-2022 MCHC (RBC) [Mass/Vol] 32.0 g/dL 32-36 [facility] [facility] Ql (Urine sed)Order ed By: Rodolfo Das on 12-09-2022 Mucus Ql (Urine sed) 0 SEEN /hpf [facility] Nitrite Test strip Ql (U)Ord ered By: Rodolfo Das on 12-09-2022 Nitrite Ql (U) Negative Negative [facility] No Panel InformationOrdered By: Rodolfo Das on 12-09-2022 Estimated Creatinine Clearance Calc 120.15 ml/min [facility] Estimated GFR (MDRD) Amer 132 mL/min >60 [facility] Comment on above: GFR Calc Estimated GFR (MDRD) Non-Af Amer 109 mL/min >60 [facility] Comment on above: Non- GFR Calc Platelets bldOrdered By: Vilma Das on 12-09-2022 Platelets (Bld) [#/Vol] 386 10*3/uL 150-450 [facility] Protein Test strip Ql (U)Ord ered By: Rodolfo Das on 12-09-2022 Protein Ql (U) 30 mg/dl Negative [facility] Serum or plasma albumin cherelle urement (mass/volume)Ordered By: Rodolfo Das on 12-09-2022 Albumin [Mass/Vol] 3.6 g/dL 3.2-5.0 [facility] Serum or plasma albumin/glob ulin mass ratioOrdered By: Rodolfo Das on 12-09-2022 Albumin/Globulin [Mass ratio] 0.9 {ratio} 0.9-2.4 [facility] Serum or plasma calcium cherelle urement (mass/volume)Ordered By: Rodolfo Das on 12-09-2022 Calcium [Mass/Vol] 9.2 mg/dL 8.5-10.1 [facility] Serum or plasma creatinine m easurement (mass/volume)Ordered By: Rodolfo Das on 12-09-2022 Creatinine [Mass/Vol] 0.69 mg/dL 0.55-1.02 [facility] Comment on above: The validity of the calculated GFR & GFRAA in patients over 70 years has not been determined. Clinical correlation is essential. Serum or plasma urea nitroge n measurement (mass/volume)Ordered By: Rodolfo Das on 12-09-2022 Urea nitrogen [Mass/Vol] 13 mg/dL 7-18 [facility] Squamous epithelial cells de tection in urine sediment by light microscopyOrdered By: Rodolfo Das on 12-09-2022 Epithelial cells.squamous LM Ql (Urine sed) 0 SEEN /hpf 5-10 [facility] Thin prep Papanicolaou smear with manual screeningOrdered By: Rodolfo Das on 12-09-2022 Thin prep Papanicolaou smear with manual screening 20 U/L 15-37 [facility] Thin prep Papanicolaou smear with manual screening 4 5-15 [facility] Urine blood detectionOrdered By: Rodolfo Das on 12-09-2022 RBC Ql (U) 10 /ul Negative [facility] RBC Ql (U) 0 SEEN /hpf 0-5 [facility] Urine clarityOrdered By: Vilma Das on 12-09-2022 Clarity (U) Sl. Cloudy Clear [facility] Urine color determinationOrd ered By: Rodolfo Das on 12-09-2022 Color (U) Yellow Yellow [facility] Urine glucose detectionOrder ed By: Rodolfo Das on 12-09-2022 Glucose Ql (U) Normal mg/dl Normal [facility] Urine leukocyte esterase det ection by dipstickOrdered By: Rodlofo Das on 12-09-2022 Leukocyte esterase Test strip Ql (U) 500 /ul Negative [facility] Urine pHOrdered By: Rodolfo alfaro on 12-09-2022 pH (U) 6.0 [pH] 5.0 - 8.0 [facility] Urine sediment bacteria coun t by microscopy (number/high power field)Ordered By: Rodolfo Das on 12-09-2022 Bacteria LM.HPF (Urine sed) [#/Area] 1 /[HPF] None Seen [facility] Urine specific gravity measu rementOrdered By: Rodolfo Das on 12-09-2022 Specific gravity (U) [Rel density] 1.025 1.002-1.030 [facility] Urobilinogen Auto test strip Ql (U)Ordered By: Rodolfo Das on 12-09-2022 Urobilinogen Ql (U) Normal mg/dl [facility] .Auto Diffon 12-04-2022 Basophil, Absolute 0.0 10 3/mcL Normal 0.0-0.2 [facility] ([place]) Comment on above: Performed By: #### B JULIO CESAR BROWN, BAKARI, GFR, CBC, ADIFF #### [place] [address] [address] Basophils/100 WBC (Bld) 0.5 % Normal 0.0-2.5 [facility] ([place]) Comment on above: Performed By: #### B JULIO CESAR BROWN, ANEU, GFR, CBC, ADIFF #### [address] [address] Eosinophil, Absolute 0.1 10 3/mcL Normal 0.0-0.4 [facility] ([place]) Comment on above: Performed By: #### B JULIO CESAR BROWN, ANEU, GFR, CBC, ADIFF #### [address] [address] Eosinophils/100 WBC (Bld) 1.0 % Normal 0.0-7.0 [facility] ([place]) Comment on above: Performed By: #### B JULIO CESAR BROWN, ANEU, GFR, CBC, ADIFF #### [address] [address] Lymphocyte, Absolute 2.6 10 3/mcL Normal 0.8-3.9 [facility] ([place]) Comment on above: Performed By: #### B JULIO CESAR BROWN, ANEU, GFR, CBC, ADIFF #### [address] [address] Lymphocytes/100 WBC (Bld) 26.3 % Normal 10.0-50.0 [facility] ([place]) Comment on above: Performed By: #### B JULIO CESAR BROWN, ANEU, GFR, CBC, ADIFF #### [address] [address] Monocyte, Absolute 0.7 10 3/mcL Normal 0.2-1.0 [facility] ([place]) Comment on above: Performed By: #### B JULIO CESAR BROWN, ANEU, GFR, CBC, ADIFF #### [address] [address] Monocytes/100 WBC (Bld) 7.1 % Normal 1.7-13.0 [facility] ([place]) Comment on above: Performed By: #### B JULIO CESAR BROWN, ANEU, GFR, CBC, ADIFF #### [address] [address] Neutrophils/100 WBC (Bld) 65.1 % Normal 37.0-80.0 [facility] ([place]) Comment on above: Performed By: #### B JULIO CESAR BROWN, ANEU, GFR, CBC, ADIFF #### [address] [address] .GFRon 12-04-2022 GFR 123 ml/min/1.73sqm Normal [facility] ([place]) Comment on above: Result Comment: GFR Population [...] CESAR BROWN, ANEU, GFR, CBC, ADIFF #### En[place] [address] [address] GFR Non- 101 ml/min/1.73sqm Normal [facility] ([place]) Comment on above: Result Comment: GFR Population [...] CESAR BROWN, ANEU, GFR, CBC, ADIFF #### [place] [address] [address] .Wmehdi 12-04-2022 Monocyte Distribution Width 17.49 Normal 0.00-20.00 [facility] ([place]) Comment on above: Result Comment: For ED adult patients suspected of sepsis, MDW<=20.0 does not rule out sepsis or risk of sepsis Performed By: #### B JULIO CESAR BROWN, ANEU, GFR, CBC, ADIFF #### [address] [address] .NEUABSon 12-04-2022 Neutrophil, Absolute 6.3 10 3/mcL High 2.9-6.2 [facility] ([place]) Comment on above: Performed By: #### B JULIO CESAR BROWN, ANEU, GFR, CBC, ADIFF #### [address] [address] BMPon 12-04-2022 BUN/Creatinine Ratio 17 ratio Normal 7-27 [facility] ([place]) Comment on above: Performed By: #### B JULIO CESAR BROWN, ANEU, GFR, CBC, ADIFF #### [address] [address] Calcium [Mass/Vol] 9.2 mg/dL Normal 8.4-10.2 [facility] ([place]) Comment on above: Performed By: #### B JULIO CESAR BROWN, BAKARI, GFR, CBC, ADIFF #### [address] [address] Chloride [Moles/Vol] 104 mmol/L Normal 98-107 [facility] ([place]) Comment on above: Performed By: #### B JULIO CESAR BROWN, ANEU, GFR, CBC, ADIFF #### [address] [address] CO2 [Moles/Vol] 26 mmol/L Normal 22-29 [facility] ([place]) Comment on above: Performed By: #### B JULIO CESAR BROWN, ANEU, GFR, CBC, ADIFF #### [address] [address] Creatinine [Mass/Vol] 0.70 mg/dL Normal 0.55-1.02 [facility] ([place]) Comment on above: Performed By: #### B JULIO CESAR BROWN, BAKARI, GFR, CBC, ADIFF #### [address] [address] Electrolyte Balance 11.0 mEq/L Normal 4.0-15.0 [facility] ([place]) Comment on above: Performed By: #### B JULIO CESAR BROWN, BAKARI, GFR, CBC, ADIFF #### [address] [address] Glucose [Mass/Vol] 126 mg/dL High 70-105 [facility] ([place] Comment on above: Performed By: #### B JULIO CESAR BROWN, BAKARI, GFR, CBC, ADIFF #### [address] [address] Potassium [Moles/Vol] 4.5 mmol/L Normal 3.5-5.1 [facility] ([place]) Comment on above: Performed By: #### B JULIO CESAR BROWN, BAKARI, GFR, CBC, ADIFF #### [address] [address] Sodium [Moles/Vol] 141 mmol/L Normal 136-145 [facility] ([place] Comment on above: Performed By: #### B JULIO CESAR BROWN, BAKARI, GFR, CBC, ADIFF #### [address] [address] Urea nitrogen [Mass/Vol] 12 mg/dL Normal 7-18 [facility] ([place]) Comment on above: Performed By: #### B JULIO CESAR BROWN, BAKARI, GFR, CBC, ADIFF #### [address] [address] CBCon 12-04-2022 Erythrocyte distribution width (RBC) [Ratio] 14.4 % Normal 11.5-14.5 [facility] ([place]) Comment on above: Performed By: #### B JULIO CESAR BROWN, BAKARI, GFR, CBC, ADIFF #### [address] [address] Hematocrit (Bld) [Volume fraction] 39.4 % Normal 37.0-47.0 [facility] ([place]) Comment on above: Performed By: #### B JULIO CESAR BROWN, ANEU, GFR, CBC, ADIFF #### [address] [address] Hgb 13.1 G/dL Normal 12.0-16.0 [facility] ([place]) Comment on above: Performed By: #### B JULIO CESAR BROWN, BAKARI, GFR, CBC, ADIFF #### [address] [address] MCH (RBC) [Entitic mass] 29.2 pg Normal 27.0-31.2 [facility] ([place]) Comment on above: Performed By: #### B JULIO CESAR BROWN, BAKARI, GFR, CBC, ADIFF #### [address] [address] MCHC 33.2 G/dL Normal 33.0-37.0 [facility] ([place]) Comment on above: Performed By: #### B JULIO CESAR BROWN, BAKARI, GFR, CBC, ADIFF #### [address] [address] MCV (RBC) [Entitic vol] 87.9 fL Normal 80.0-94.0 [facility] ([place]) Comment on above: Performed By: #### B JULIO CESAR BROWN, BAKARI, GFR, CBC, ADIFF #### [address] [address] Platelet 373 10 3/mcL Normal 130-400 [facility] ([place]) Comment on above: Performed By: #### B JULIO CESAR BROWN, BAKARI, GFR, CBC, ADIFF #### [address] [address] Platelet mean volume (Bld) [Entitic vol] 7.2 fL Low 7.4-10.4 [facility] ([place]) Comment on above: Performed By: #### B JULIO CESAR BROWN, ANEU, GFR, CBC, ADIFF #### [address] [address] RBC 4.48 10 6/mcL Normal 4.20-5.40 [facility] ([place]) Comment on above: Performed By: #### B JULIO CESAR BROWN, ANEU, GFR, CBC, ADIFF #### [facility] [address] [place], [place] [address] WBC 9.7 10 3/mcL Normal 4.6-10.8 [facility] ([place]) Comment on above: Performed By: #### B JULIO CESAR BROWN, ANEU, GFR, CBC, ADIFF #### [facility] [address] [place], [place] [address] CT HEAD OR BRAIN W/O CONTRAS Ton [...] Date: 12/04/2022 7:24:52 PM Ordering Provider: DEB Rivera [facility] ([place]) Glucose Glucometer (BldC) [M ass/Vol]Ordered By: Ozzy Bright on 11-23-2022 Glucose [Mass/Vol] 102 mg/dL 74-106 [facility] Comment on above: MANAGEMENT OF PATIEN T CARE PER NURSING PROTOCOL Basophil percentageOrdered B y: Ozzy Bright on 11-22-2022 Chloride [Moles/Vol] 109 mmol/L 98-107 [facility] Glucose [Mass/Vol] 89 mg/dL 74-106 [facility] Potassium [Moles/Vol] 3.8 mmol/L 3.5-5.1 [facility] Sodium [Moles/Vol] 139 mmol/L 136-145 [facility] Glucose Glucometer (BldC) [M ass/Vol]Ordered By: Ozzy Bright on 11-22-2022 Glucose [Mass/Vol] 73 mg/dL 74-106 [facility] Comment on above: MANAGEMENT OF PATIEN T CARE PER NURSING PROTOCOL Laboratory - Chemistry and C hemistry - challengeOrdered By: Ozzy Bright on 11-22-2022 CO2 [Moles/Vol] 25.0 mmol/L 21.0-32.0 [facility] Urea nitrogen/Creatinine [Mass ratio] 16.7 mg/mg 10-20 [facility] No Panel InformationOrdered By: Ozzy Bright on 11-22-2022 Estimated GFR (MDRD) Amer 140 mL/min >60 [facility] Comment on above: GFR Calc Estimated GFR (MDRD) Non-Af Amer 115 mL/min >60 [facility] Comment on above: Non- GFR Calc Serum or plasma calcium cherelle urement (mass/volume)Ordered By: Ozzy Bright on 11-22-2022 Calcium [Mass/Vol] 9.4 mg/dL 8.5-10.1 [facility] Serum or plasma creatinine m easurement (mass/volume)Ordered By: Ozzy Bright on 11-22-2022 Creatinine [Mass/Vol] 0.66 mg/dL 0.55-1.02 [facility] Comment on above: The validity of the calculated GFR & GFRAA in patients over 70 years has not been determined. Clinical correlation is essential. Serum or plasma urea nitroge n measurement (mass/volume)Ordered By: Ozzy Bright on 11-22-2022 Urea nitrogen [Mass/Vol] 11 mg/dL 7-18 [facility] Thin prep Papanicolaou smear with manual screeningOrdered By: Ozzy Bright on 11-22-2022 Thin prep Papanicolaou smear with manual screening 5 5-15 [facility] Cervical or vagninal specime n microscopic examination by cytology stain (reported asOrdered By: Zeus Miller on 10-03-2022 Cytology report Cyto stain Doc (Cvx/Vag) Comment . [facility] Comment on above: The Pap smear is a s creening test designed to aid in thedetection of premalignant and malignant conditions of theuterine cervix. It is not a diagnostic procedure andshould not be used as the sole means of detecting cervicalcancer. Both false-positive and false-negative reports dooccur. Laboratory - CytologyOrdered By: Zeus Miller on 10-03-2022 Follow Up Clerk Cyto stain Nom (Cvx/Vag) [ID] Comment . [facility] Comment on above: Naina Pinedo, Cytot echnologist (ASCP) Laboratory - Miscellaneous t estsOrdered By: Zeus Miller on 10-03-2022 Service comment (Unsp spec) [Interp] Comment . [facility] Comment on above: This liquid based Th inPrep(R) pap test was screened withthe use of an image guided system. Service comment (Unsp spec) [Interp] . . [facility] No Panel InformationOrdered By: Zeus Miller on 10-03-2022 Human Papillomavirus Screen Comment . [facility] Comment on above: The HPV DNA reflex c riteria were not met with this specimenresult therefore, no HPV testing was performed.Performed at: - [address] [id number] Director: Idalia Yoo MD, Phone: [phone] Pathology report final diagnosis Narrative Comment . [facility] Comment on above: NEGATIVE FOR INTRAEP ITHELIAL LESION OR MALIGNANCY. Basophil percentageOrdered B y: Andreas Hazel on 09-19-2022 Bilirubin [Mass/Vol] 0.80 mg/dL 0.20-1.00 [facility] Comment on above: For patients on eltr ombopag therapy, use of Dimension [place] TBIL is not recommended. Chloride [Moles/Vol] 108 mmol/L 98-107 [facility] Cholesterol [Mass/Vol] 232 mg/dL <200 [facility] Comment on above: <200 mg/dL Desirable 200-240 mg/dL Borderline >240 mg/dL High Risk Glucose [Mass/Vol] 94 mg/dL 74-106 [facility] Potassium [Moles/Vol] 4.5 mmol/L 3.5-5.1 [facility] Protein [Mass/Vol] 7.4 g/dL 6.4-8.2 [facility] Sodium [Moles/Vol] 138 mmol/L 136-145 [facility] Triglyceride [Mass/Vol] 215 mg/dL <199 [facility] Comment on above: The drugs N-Acetylcy steine and Metamizole may falsely depress this assay.Serum Triglycerides Reference Interval Normal <150 mg/dL Borderline high 150 - 199 mg/dL High 200 - 499 mg/dL Very High > or = 500 mg/dL WBC (Bld) [#/Vol] 8.5 10*3/uL 4.4-11.0 [facility] Blood erythrocytes count (nu mber/volume)Ordered By: Andreas Oliva on 09-19-2022 RBC (Bld) [#/Vol] 4.65 10*6/uL 4.2-5.4 [facility] Blood hemoglobin measurement (mass/volume)Ordered By: Andreas Oliva on 09-19-2022 Hemoglobin (Bld) [Mass/Vol] 13.6 g/dL 12.0-15.0 [facility] Blood platelet mean volumeOr dered By: Andreas Oliva on 09-19-2022 Platelet mean volume (Bld) [Entitic vol] 9.0 fL 6.2-12.0 [facility] Determination of erythrocyte mean corpuscular volume (MCV)Ordered By: Andreas Oliva on 09-19-2022 MCV (RBC) [Entitic vol] 88.4 fL 81-99 [facility] Hematocrit Auto (Bld) [Volum e fraction]Ordered By: Andreas Oliva on 09-19-2022 Hematocrit (Bld) [Volume fraction] 41.1 % 37-47 [facility] Laboratory - Chemistry and C hemistry - challengeOrdered By: Andreas Oliva on 09-19-2022 ALP [Catalytic activity/Vol] 75 U/L 45-117 [facility] ALT [Catalytic activity/Vol] 199 U/L 13-56 [facility] CO2 [Moles/Vol] 25.0 mmol/L 21.0-32.0 [facility] Cobalamin (Vitamin B12) [Mass/Vol] 1606 pg/mL 211-911 [facility] Free T4 [Mass/Vol] 1.12 ng/dL 0.76-1.46 [facility] Globulin (S) [Mass/Vol] 3.7 g/dL 2.2-4.2 [facility] Urea nitrogen/Creatinine [Mass ratio] 13.4 mg/mg 10-20 [facility] Laboratory - Hematology and Cell countsOrdered By: Andreas Oliva on 09-19-2022 Erythrocyte distribution width (RBC) [Entitic vol] 43.0 fL 35.1-43.9 [facility] Erythrocyte distribution width (RBC) [Ratio] 13.3 % 11.6-14.6 [facility] MCH (RBC) [Entitic mass] 29.2 pg 27.0-32.0 [facility] MCHC Auto (RBC) [Mass/Vol]Or dered By: Andreas Oliva on 09-19-2022 MCHC (RBC) [Mass/Vol] 33.1 g/dL 32-36 [facility] No Panel InformationOrdered By: Andreas Oliva on 09-19-2022 Estimated GFR (MDRD) Amer 109 mL/min >60 [facility] Comment on above: GFR Calc Estimated GFR (MDRD) Non-Af Amer 90 mL/min >60 [facility] Comment on above: Non- GFR Calc Thyroid Stimulating Hormone (TSH) 3.75 uIU/mL 0.358-3.74 [facility] Vitamin D 25-Hydroxy 16.1 ng/mL [facility] Comment on above: Vitamin D 25(OH) Sta tus Range Deficiency <20 ng/mL (50nmol/L) Insufficiency 20 - 30 ng/mL (50 - 75 nmol/L) Sufficiency 30 - 100 ng/mL (75 - 250 nmol/L) Toxicity >100 ng/mL (>250 nmol/L) Platelets bldOrdered By: Mello Oliva on 09-19-2022 Platelets (Bld) [#/Vol] 337 10*3/uL 150-450 [facility] Serum or plasma albumin cherelle urement (mass/volume)Ordered By: Andreas Oliva on 09-19-2022 Albumin [Mass/Vol] 3.7 g/dL 3.2-5.0 [facility] Serum or plasma albumin/glob ulin mass ratioOrdered By: Andreas Oliva on 09-19-2022 Albumin/Globulin [Mass ratio] 1.0 {ratio} 0.9-2.4 [facility] Serum or plasma calcium cherelle urement (mass/volume)Ordered By: Andreas Oliva on 09-19-2022 Calcium [Mass/Vol] 9.5 mg/dL 8.5-10.1 [facility] Serum or plasma cholesterol in HDL measurement (mass/volume)Ordered By: Andreas Oliva on 09-19-2022 Cholesterol in HDL [Mass/Vol] 33 mg/dL >40 [facility] Comment on above: The drugs N-Acetylcy steine and Metamizole may falsely depress this assay. Reference Range HDL <40 mg/dL Low HDL Cholesterol HDL >or= 60 mg/dL High HDL Cholesterol Serum or plasma cholesterol in VLDL measurement (mass/volume)Ordered By: Andreas Oliva on 09-19-2022 Cholesterol in VLDL [Mass/Vol] 43 mg/dL 5-40 [facility] Serum or plasma creatinine m easurement (mass/volume)Ordered By: Andreas Oliva on 09-19-2022 Creatinine [Mass/Vol] 0.82 mg/dL 0.55-1.02 [facility] Comment on above: The validity of the calculated GFR & GFRAA in patients over 70 years has not been determined. Clinical correlation is essential. Serum or plasma low density lipoprotein (LDL) cholesterol measurement (mass/volume)Ordered By: Andreas Oliva on 09-19-2022 Cholesterol in LDL [Mass/Vol] 156 mg/dL 0-130 [facility] Serum or plasma urea nitroge n measurement (mass/volume)Ordered By: Andreas Oliva on 09-19-2022 Urea nitrogen [Mass/Vol] 11 mg/dL 7-18 [facility] Thin prep Papanicolaou smear with manual screeningOrdered By: Andreas Friend on 09-19-2022 Thin prep Papanicolaou smear with manual screening 94 U/L 15-37 [facility] Thin prep Papanicolaou smear with manual screening 5 5-15 [facility] Whole blood hemoglobin A1c/t otal hemoglobin ratio (mass fraction)Ordered By: Andreas Oliva on 09-19-2022 HbA1c (Bld) [Mass fraction] 6.7 % 3.8-5.6 [facility] Comment on above: Normal < 5.7 % Predi abetic 5.7 - 6.4 % Diabetic >or= 6.5 % Please note range changes. Absolute lymphocyte countOrd ered By: Dr. Etienne on 08-15-2022 Lymphocytes Auto (Unsp spec) [#/Vol] 2.71 10*3/uL 0.83-4.51 [facility] Basophil percentageOrdered B y: Dr. Etienne on 08-15-2022 Basophils/100 WBC (Bld) 0.5 % 0-1 [facility] Bilirubin [Mass/Vol] 0.40 mg/dL 0.20-1.00 [facility] Comment on above: For patients on eltr ombopag therapy, use of Dimension [place] TBIL is not recommended. Chloride [Moles/Vol] 109 mmol/L 98-107 [facility] Eosinophils/100 WBC (Bld) 1.8 % 0-5 [facility] Glucose [Mass/Vol] 121 mg/dL 74-106 [facility] Comment on above: Fasting Glucose resu lt from 100 to 125 mg/dL suggests IMPAIRED HOMEOSTASIS per A.D.A. criteria. Neutrophils (Bld) [#/Vol] 5.7 10*3/uL 2.0-7.7 [facility] Neutrophils/100 WBC (Bld) 59.6 % 47-70 [facility] Potassium [Moles/Vol] 3.9 mmol/L 3.5-5.1 [facility] Comment on above: Slight Hemolysis, Re sult may be falsely increased. Protein [Mass/Vol] 7.1 g/dL 6.4-8.2 [facility] Sodium [Moles/Vol] 140 mmol/L 136-145 [facility] WBC (Bld) [#/Vol] 9.6 10*3/uL 4.4-11.0 [facility] Basophil percentage 0-5 SEEN /hpf 0-5 [facility] Beta hCG serum qualOrdered B y: Dr. Etienne on 08-15-2022 Beta HCG ( test) Ql Negative [facility] Bilirubin Test strip Ql (U)O rdered By: Dr. Etienne on 08-15-2022 Bilirubin Ql (U) Negative Negative [facility] Blood erythrocytes count (nu mber/volume)Ordered By: Dr. Etienne on 08-15-2022 RBC (Bld) [#/Vol] 4.39 10*6/uL 4.2-5.4 [facility] Blood hemoglobin measurement (mass/volume)Ordered By: Dr. Etienne on 08-15-2022 Hemoglobin (Bld) [Mass/Vol] 12.6 g/dL 12.0-15.0 [facility] Blood lymphocytes/100 leukoc ytesOrdered By: Dr. Etienne on 08-15-2022 Lymphocytes/100 WBC (Bld) 28.3 % 19-41 [facility] Blood monocytes/100 leukocyt esOrdered By: Dr. Etienne on 08-15-2022 Monocytes/100 WBC (Bld) 9.2 % 0-10 [facility] Blood platelet mean volumeOr dered By: Dr. Etienne on 08-15-2022 Platelet mean volume (Bld) [Entitic vol] 9.0 fL 6.2-12.0 [facility] Determination of erythrocyte mean corpuscular volume (MCV)Ordered By: Dr. Etienne on 08-15-2022 MCV (RBC) [Entitic vol] 87.5 fL 81-99 [facility] Hematocrit Auto (Bld) [Volum e fraction]Ordered By: Dr. Etienne on 08-15-2022 Hematocrit (Bld) [Volume fraction] 38.4 % 37-47 [facility] Ketones Test strip Ql (U)Ord ered By: Dr. Etienne on 08-15-2022 Ketones Ql (U) Negative Negative [facility] Laboratory - Chemistry and C hemistry - challengeOrdered By: Dr. Etienne on 08-15-2022 ALP [Catalytic activity/Vol] 67 U/L 45-117 [facility] ALT [Catalytic activity/Vol] 128 U/L 13-56 [facility] CO2 [Moles/Vol] 25.0 mmol/L 21.0-32.0 [facility] Globulin (S) [Mass/Vol] 3.9 g/dL 2.2-4.2 [facility] Lipase [Catalytic activity/Vol] 45 U/L 13-75 [facility] Comment on above: Please note:LIPASE r evised reference range effective 22. New Lipase methodology. Expected to produce lower values than the previous assay method. NEW Reference Range: 13 - 75 U/L Urea nitrogen/Creatinine [Mass ratio] 16.2 mg/mg 10-20 [facility] Laboratory - Hematology and Cell countsOrdered By: Dr. Etienne on 08-15-2022 Erythrocyte distribution width (RBC) [Entitic vol] 43.6 fL 35.1-43.9 [facility] Erythrocyte distribution width (RBC) [Ratio] 13.5 % 11.6-14.6 [facility] Immature granulocytes/100 WBC (Bld) 0.600 % 0.0-0.9 [facility] Comment on above: IG% - Immature Granu locytes (promyelocytes, myelocytes and metamyelocytes) > 1% indicates that a LEFT SHIFT is Present. MCH (RBC) [Entitic mass] 28.7 pg 27.0-32.0 [facility] Nucleated RBC/100 WBC (Bld) [Ratio] 0 % 0-5 [facility] MCHC Auto (RBC) [Mass/Vol]Or dered By: Dr. Etienne on 08-15-2022 MCHC (RBC) [Mass/Vol] 32.8 g/dL 32-36 [facility] Mucus LM Ql (Urine sed)Order ed By: Dr. Etienne on 08-15-2022 Mucus Ql (Urine sed) 0 SEEN /hpf [facility] Nitrite Test strip Ql (U)Ord ered By: Dr. Etienne on 08-15-2022 Nitrite Ql (U) Negative Negative [facility] No Panel InformationOrdered By: Dr. Etienne on 08-15-2022 Estimated Creatinine Clearance Calc 122.99 ml/min [facility] Estimated GFR (MDRD) Amer 135 mL/min >60 [facility] Comment on above: GFR Calc Estimated GFR (MDRD) Non-Af Amer 112 mL/min >60 [facility] Comment on above: Non- GFR Calc Amaya Level 0.60 mmol/L 0.60-1.20 [facility] Platelets bldOrdered By: Dr. Etienne on 08-15-2022 Platelets (Bld) [#/Vol] 311 10*3/uL 150-450 [facility] Protein Test strip Ql (U)Ord ered By: Dr. Etienne on 08-15-2022 Protein Ql (U) 15 mg/dl Negative [facility] Serum or plasma albumin cherelle urement (mass/volume)Ordered By: Dr. Etienne on 08-15-2022 Albumin [Mass/Vol] 3.2 g/dL 3.2-5.0 [facility] Serum or plasma albumin/glob ulin mass ratioOrdered By: Dr. Etienne on 08-15-2022 Albumin/Globulin [Mass ratio] 0.8 {ratio} 0.9-2.4 [facility] Serum or plasma calcium cherelle urement (mass/volume)Ordered By: Dr. Etienne on 08-15-2022 Calcium [Mass/Vol] 9.0 mg/dL 8.5-10.1 [facility] Serum or plasma creatinine m easurement (mass/volume)Ordered By: Dr. Etienne on 08-15-2022 Creatinine [Mass/Vol] 0.68 mg/dL 0.55-1.02 [facility] Comment on above: The validity of the calculated GFR & GFRAA in patients over 70 years has not been determined. Clinical correlation is essential. Serum or plasma urea nitroge n measurement (mass/volume)Ordered By: Dr. Etienne on 08-15-2022 Urea nitrogen [Mass/Vol] 11 mg/dL 7-18 [facility] Squamous epithelial cells de tection in urine sediment by light microscopyOrdered By: Dr. Etinene on 08-15-2022 Epithelial cells.squamous LM Ql (Urine sed) 0-5 SEEN /hpf 5-10 [facility] Thin prep Papanicolaou smear with manual screeningOrdered By: Dr. Etienne on 08-15-2022 Thin prep Papanicolaou smear with manual screening 49 U/L 15-37 [facility] Comment on above: Slight Hemolysis, Re sult may be falsely increased. Thin prep Papanicolaou smear with manual screening 6 5-15 [facility] Urine blood detectionOrdered By: Dr. Etienne on 08-15-2022 RBC Ql (U) Negative Negative [facility] RBC Ql (U) 0 SEEN /hpf 0-5 [facility] Urine clarityOrdered By: Dr. Etienne on 08-15-2022 Clarity (U) Sl. Cloudy Clear [facility] Urine color determinationOrd ered By: Dr. Etienne on 08-15-2022 Color (U) Yellow Yellow [facility] Urine glucose detectionOrder ed By: Dr. Etienne on 08-15-2022 Glucose Ql (U) Normal mg/dl Normal [facility] Urine leukocyte esterase det ection by dipstickOrdered By: Dr. Etienne on 08-15-2022 Leukocyte esterase Test strip Ql (U) 25 /ul Negative [facility] Urine pHOrdered By: Dr. Michael jacinto on 08-15-2022 pH (U) 6.0 [pH] 5.0 - 8.0 [facility] Urine sediment bacteria coun t by microscopy (number/high power field)Ordered By: Dr. Etienne on 08-15-2022 Bacteria LM.HPF (Urine sed) [#/Area] 1 /[HPF] None Seen [facility] Urine specific gravity measu rementOrdered By: Dr. Etienne on 08-15-2022 Specific gravity (U) [Rel density] 1.020 1.002-1.030 [facility] Urobilinogen Auto test strip Ql (U)Ordered By: Dr. Etienne on 08-15-2022 Urobilinogen Ql (U) Normal mg/dl Normal [facility] Beta hCG serum qualOrdered B y: Dr. Dutta on 08-08-2022 Beta HCG ( test) Ql Negative [facility] Thin prep Papanicolaou smear with manual screeningOrdered By: Zeus Miller on 03-03-2022 Genital Culture Streptococcus agalac tiae (B) [facility] Gram stain for investigation of transfusion reactionOrdered By: Zeus Miller on 03-01-2022 Microscopic observation Gram stain Nom (Unsp spec) [facility] Laboratory - Chemistry and C hemistry - challengeOrdered By: Zeus Miller on 02-28-2022 Free T4 [Mass/Vol] 1.05 ng/dL 0.76-1.46 [facility] No Panel InformationOrdered By: Zeus Miller on 02-28-2022 Dehydroepiandrosterone Sulfate 130.0 ug/dL 84.8-378.0 [facility] No Panel InformationOrdered By: Karina Guerra on 02-28-2022 Amaya Level 0.80 mmol/L 0.60-1.20 [facility] Thyroid Stimulating Hormone (TSH) 3.69 uIU/mL 0.358-3.74 [facility] Serum or plasma 17-hydroxypr ogesterone measurement (mass/volume)Ordered By: Zeus Miller on 02-28-2022 17-Hydroxyprogesterone [Mass/Vol] 61 ng/dL . [facility] Comment on above: Adult Female Follicu lar 15 - 70 Luteal 35 - 290Performed at: [facility] [address] [id number] Director: Harsh Harris MD, Phone: [phone] Serum or plasma testosterone free measurement (mass/volume)Ordered By: Zeus Miller on 02-28-2022 Testosterone Free [Mass/Vol] 2.8 pg/mL 0.0-4.2 [facility] Serum or plasma thyroperoxid ase antibody assay (units/volume)Ordered By: Zeus Miller on 02-28-2022 TPO Ab Qn [IU]/mL 0-34 [facility] Comment on above: Performed at: [facility] [id number] Director: Neeraj Marte PhD, Phone: [phone] at: [facility] [address] [id number] Director: Harsh Harris MD, Phone: [phone] No Panel InformationOrdered By: Andreas Oliva on 02-17-2022 Stool Calprotectin 137 ug/g 0-120 [facility] Comment on above: Concentration Interp retation Follow-Up<16 - 50 ug/g Normal None>50 -120 ug/g Borderline Re-evaluate in 4-6 weeks >120 ug/g Abnormal Repeat as clinically indicatedPerformed at: - [facility] [id number] Director: Harsh Harris MD, Phone: [phone] Stool Pancreatic Elastase 329 >200 [facility] Comment on above: Result Units: ug Graciela st./g Severe Pancreatic Insufficiency: <100 Moderate Pancreatic Insufficiency: 100 - 200 Normal: >200Performed at: [place] [facility] [address] [id number] Director: Harsh Harris MD, Phone: [phone] Stool lactoferrin detection by immunoassayOrdered By: Andreas Oliva on 02-17-2022 Lactoferrin IA Ql (Stl) [facility] Absolute lymphocyte countOrd ered By: Andreas Oliva on 02-15-2022 Lymphocytes Auto (Unsp spec) [#/Vol] 2.13 10*3/uL 0.83-4.51 [facility] Albumin Elph [Mass/Vol]Order ed By: Andreas Oliva on 02-15-2022 Albumin [Mass/Vol] 3.6 g/dL 2.9-4.4 [facility] Atypical perinuclear antineu trophil cytoplasmic antibodies measurementOrdered By: Andreas Oliva on 02-15-2022 Neutrophil cytoplasmic Ab.perinuclear.atypical IF (S) [Titer] <1:20 titer Neg:<1:20 [facility] Comment on above: The atypical pANCA p attern has been observed in asignificant percentage of patients with ulcerative colitis,primary sclerosing cholangitis and autoimmune hepatitis. Basophil percentageOrdered B y: Andreas Oliva on 02-15-2022 Ammonia (P) [Moles/Vol] 20.0 umol/L 11-32 [facility] Basophil percentage < 0.2 AI 0.0-0.9 [facility] Basophils/100 WBC (Bld) 0.5 % 0-1 [facility] Bilirubin [Mass/Vol] 0.40 mg/dL 0.20-1.00 [facility] Comment on above: For patients on eltr ombopag therapy, use of Dimension [place] TBIL is not recommended. Chloride [Moles/Vol] 109 mmol/L 98-107 [facility] Eosinophils/100 WBC (Bld) 2.3 % 0-5 [facility] Glucose [Mass/Vol] 112 mg/dL 74-106 [facility] Comment on above: Fasting Glucose resu lt from 100 to 125 mg/dL suggests IMPAIRED HOMEOSTASIS per A.D.A. criteria. LDH [Catalytic activity/Vol] 187 U/L 84-246 [facility] Neutrophils (Bld) [#/Vol] 4.4 10*3/uL 2.0-7.7 [facility] Neutrophils/100 WBC (Bld) 60.9 % 47-70 [facility] Potassium [Moles/Vol] 4.4 mmol/L 3.5-5.1 [facility] Protein [Mass/Vol] 7.4 g/dL 6.4-8.2 [facility] Sodium [Moles/Vol] 137 mmol/L 136-145 [facility] WBC (Bld) [#/Vol] 7.3 10*3/uL 4.4-11.0 [facility] Blood erythrocytes count (nu mber/volume)Ordered By: Andreas Oliva on 02-15-2022 RBC (Bld) [#/Vol] 4.35 10*6/uL 4.2-5.4 [facility] Blood hemoglobin measurement (mass/volume)Ordered By: Andreas Oliva on 02-15-2022 Hemoglobin (Bld) [Mass/Vol] 12.9 g/dL 12.0-15.0 [facility] Blood lymphocytes/100 leukoc ytesOrdered By: Andreas Oliva on 02-15-2022 Lymphocytes/100 WBC (Bld) 29.1 % 19-41 [facility] Blood monocytes/100 leukocyt esOrdered By: Andreas Oliva on 02-15-2022 Monocytes/100 WBC (Bld) 6.8 % 0-10 [facility] Blood platelet mean volumeOr dered By: Andreas Oliva on 02-15-2022 Platelet mean volume (Bld) [Entitic vol] 8.9 fL 6.2-12.0 [facility] Determination of erythrocyte mean corpuscular volume (MCV)Ordered By: Andreas Oliva on 02-15-2022 MCV (RBC) [Entitic vol] 91.3 fL 81-99 [facility] Erythrocyte sedimentation ra teOrdered By: Andreas Oliva on 02-15-2022 ESR (Bld) [Velocity] 28 mm/h 0-30 [facility] HIV 1 and HIV-2 antibody ass ay with HIV-1 p24 antigen detectionOrdered By: Andreas Oliva on 02-15-2022 HIV 1+2 Ab+HIV1 p24 Ag IA Ql Non-Reactive Nonreactive [facility] Hematocrit Auto (Bld) [Volum e fraction]Ordered By: Andreas Oliva on 02-15-2022 Hematocrit (Bld) [Volume fraction] 39.7 % 37-47 [facility] INR in Blood by Coagulation assayOrdered By: Andreas Oliva on 02-15-2022 INR Coag (Bld) [Relative time] 1.1 {INR} [facility] Interpretation of serum or p lasma protein pattern by immunofixation (narrative resultOrdered By: Andreas Oliva on 02-15-2022 Protein Fractions Immunofixation Willard [Interp] See comment [facility] Comment on above: Result: Not Observed Laboratory - Chemistry and C hemistry - challengeOrdered By: Andreas Oliva on 02-15-2022 ALP [Catalytic activity/Vol] 52 U/L 45-117 [facility] ALT [Catalytic activity/Vol] 92 U/L 13-56 [facility] CO2 [Moles/Vol] 24.0 mmol/L 21.0-32.0 [facility] Urea nitrogen/Creatinine [Mass ratio] 19.9 mg/mg 10-20 [facility] Laboratory - CoagulationOrde red By: Andreas Oliva on 02-15-2022 PT Coag (PPP) [Time] 13.7 s 11.7-14.9 [facility] Laboratory - Hematology and Cell countsOrdered By: Andreas Oliva on 02-15-2022 Erythrocyte distribution width (RBC) [Entitic vol] 43.8 fL 35.1-43.9 [facility] Erythrocyte distribution width (RBC) [Ratio] 12.9 % 11.6-14.6 [facility] Immature granulocytes/100 WBC (Bld) 0.400 % 0.0-0.9 [facility] Comment on above: IG% - Immature Granu locytes (promyelocytes, myelocytes and metamyelocytes) > 1% indicates that a LEFT SHIFT is Present. MCH (RBC) [Entitic mass] 29.7 pg 27.0-32.0 [facility] Nucleated RBC/100 WBC (Bld) [Ratio] 0 % 0-5 [facility] MCHC Auto (RBC) [Mass/Vol]Or dered By: Andreas Oliva on 02-15-2022 MCHC (RBC) [Mass/Vol] 32.5 g/dL 32-36 [facility] No Panel InformationOrdered By: Andreas Oliva on 02-15-2022 Addendum Document Comment . [facility] Comment on above: Protein electrophore sis scan will follow via computer,mail, or buhr mill operator delivery. Centromere B Antibody <0.2 AI 0.0-0.9 [facility] Ceruloplasmin 26.2 mg/dL 19.0-39.0 [facility] Endomysial IgA Antibody Negative Negative [facility] Estimated GFR (MDRD) Amer 130 mL/min >60 [facility] Comment on above: GFR Calc Estimated GFR (MDRD) Non-Af Amer 107 mL/min >60 [facility] Comment on above: Non- GFR Calc Haptoglobin 219 mg/dL 33-278 [facility] Comment on above: Performed at: - [address] [id number] Director: Neeraj Marte PhD, Phone: [phone] at: - [facility] [address] [id number] Director: Harsh Harris MD, Phone: [phone] Hepatitis A IgM Antibody Negative Negative [facility] Hepatitis B Core IgM Antibody Negative Negative [facility] Hepatitis C Antibody (EIA) 0.1 s/co ratio 0.0-0.9 [facility] Hepatitis C Antibody Comment Comment . [facility] Comment on above: NegativeNot infected with HCV, unless recent infection issuspected or other evidence exists to indicate HCVinfection. Immunoglobulin E 18 IU/mL 6-495 [facility] Miscellaneous Test See comment [facility] Comment on above: TEST RESULT LIMITSIB D [...] developed and its performance characteristics determined by [facility]. It has not been cleared or approved by the Food and Drug Administration. The FDA has determined that such clearance or approval is not necessary.Atypical pANCA Negative Negative Comments Abnormal Suggestive of Crohn's Disease. Pattern is not conclusive for disease behavior risk stratification. TESTING PERFORMED AT [facility]. ORIGINAL REPORT ON FILE IN LAB CONTAINS ADDITIONAL TEST SITE INFORMATION. DIABETES TERRITORY MANAGER Antibody <0.2 AI 0.0-0.9 [facility] No Panel InformationOrdered By: Zeus Miller on 02-15-2022 Follicle Stimulating Hormone 3.8 mIU/mL [facility] Comment on above: NORMAL REFERENCE RAN GES FEMALE FOLLICULAR 2.3 - 12.6 mIU/mL MID-CYCLE PEAK 5.2 - 17.5 mIU/mL LUTEAL 1.7 - 12.9 mIU/mL POST-MENOPAUSAL ON MHT 5.9 - 72.8 mIU/mL NOT ON MHT 12.7 - 132.2 mlU/mL MALE 0.7 - 10.8 mIU/mL Platelets bldOrdered By: Mello magaña Friend on 02-15-2022 Platelets (Bld) [#/Vol] 367 10*3/uL 150-450 [facility] Serum DNA double strand anti body assay (units/volume)Ordered By: Andreas Oliva on 02-15-2022 DNA double strand Ab Qn (S) 1 [IU]/mL 0-9 [facility] Comment on above: Negative <5 Equivoca l 5 - 9 Positive >9 Serum Gabriella-1 antibody assay (u nits/volume)Ordered By: Andreas Oliva on 02-15-2022 Gabriella-1 extractable nuclear Ab Qn (S) <0.2 AI 0.0-0.9 [facility] Serum Scl-70 extractable nuc lear antibody assay (units/volume)Ordered By: Andreas Oliva on 02-15-2022 SCL-70 extractable nuclear Ab Qn (S) <0.2 AI 0.0-0.9 [facility] Serum Dykes extractable nucl ear antibody detectionOrdered By: Andreas Oliva on 02-15-2022 Dykes extractable nuclear Ab Ql (S) <0.2 AI 0.0-0.9 [facility] Serum [id number] measu rement by electrophoresisOrdered By: Andreas Oliva on 02-15-2022 Alpha 1 globulin Elph [Mass/Vol] 0.2 g/dL 0.0-0.4 [facility] Alpha 1 globulin Elph [Mass/Vol] 0.9 g/dL 0.4-1.0 [facility] Serum classic neutrophil cyt oplasmic antibody assay (units/volume)Ordered By: Andreas Oliva on 02-15-2022 Neutrophil cytoplasmic Ab.classic Qn (S) <1:20 titer Neg:<1:20 [facility] Serum globulin measurement ( mass/volume)Ordered By: Andreas Oliva on 02-15-2022 Globulin (S) [Mass/Vol] 3.4 g/dL 2.2-3.9 [facility] Serum mitochondria antibody detectionOrdered By: Andreas Oliva on 02-15-2022 Mitochondria Ab Ql (S) <20.0 Units 0.0-20.0 [facility] Comment on above: Negative 0.0 - 20.0 Equivocal 20.1 - 24.9 Positive >24.9Mitochondrial (M2) Antibodies are found in 90-96% ofpatients with primary biliary cirrhosis.Performed at: [facility] [place], [place] [id number] Director: Neeraj Marte PhD, Phone: [phone] Serum or plasma C reactive p rotein measurement (mass/volume)Ordered By: Andreas Oliva on 02-15-2022 CRP [Mass/Vol] 4.50 mg/L 0.0-3.0 [facility] Comment on above: C-Reactive Protein ( CRP) provides useful information for thediagnosis, therapy and monitoring of inflammatory processesand associated diseases. For the evaluation of Relative Riskfor Cardiovascular Disease, a High Sensitivity CRP (HSCRP)should be ordered. Serum or plasma IgA measurem ent (mass/volume)Ordered By: Andreas lOiva on 02-15-2022 IgA [Mass/Vol] 163 mg/dL 87-352 [facility] Serum or plasma IgG measurem ent (mass/volume)Ordered By: Andreasneal Oliva on 02-15-2022 IgG [Mass/Vol] 972 mg/dL 586-1602 [facility] Serum or plasma IgM measurem ent (mass/volume)Ordered By: Andreas Oliva on 02-15-2022 IgM [Mass/Vol] 115 mg/dL 26-217 [facility] Serum or plasma actin IgG an tibody assay (units/volume)Ordered By: Andreas Oliva on 02-15-2022 Actin IgG Qn 9 Units 0-19 [facility] Comment on above: Negative 0 - 19 Weak positive 20 - 30 Moderate to strong positive >30 Actin Antibodies are found in 52-85% of patients with autoimmune hepatitis or chronic active hepatitis and in 22% of patients with primary biliary cirrhosis. Serum or plasma albumin cherelle urement (mass/volume)Ordered By: Andreas Oliva on 02-15-2022 Albumin [Mass/Vol] 3.5 g/dL 3.2-5.0 [facility] Serum or plasma albumin/glob ulin mass ratioOrdered By: Andreas Oliva on 02-15-2022 Albumin/Globulin [Mass ratio] 0.9 {ratio} 0.9-2.4 [facility] Serum or plasma [id number] protein tumor marker measurement (units/volume)Ordered By: Andreas Oliva on 02-15-2022 AFP.tumor marker Qn < 1.8 ng/mL 0.0-4.7 [facility] Comment on above: [employer] El ectrochemiluminescence Immunoassay(ECLIA)Values obtained with different assay methods or kits cannotbe used interchangeably. Results cannot be interpreted asabsolute evidence of the presence or absence of malignantdisease.This test is not interpretable in females. Serum or plasma angiotensin converting enzyme measurement (enzymatic activity/volume)Ordered By: Andreas Oliva on 02-15-2022 Angiotensin converting enzyme [Catalytic activity/Vol] 31 U/L [facility] Serum or plasma beta globuli n measurement by electrophoresis (mass/volume)Ordered By: Andreas Oliva on 02-15-2022 Beta globulin Elph [Mass/Vol] 1.2 g/dL 0.7-1.3 [facility] Serum or plasma calcium cherelle urement (mass/volume)Ordered By: Andreas Oliva on 02-15-2022 Calcium [Mass/Vol] 9.1 mg/dL 8.5-10.1 [facility] Serum or plasma creatinine m easurement (mass/volume)Ordered By: Andreas Oliav on 02-15-2022 Creatinine [Mass/Vol] 0.70 mg/dL 0.55-1.02 [facility] Comment on above: The validity of the calculated GFR & GFRAA in patients over 70 years has not been determined. Clinical correlation is essential. Serum or plasma estradiol (E 2) measurement (mass/volume)Ordered By: Zeus Miller on 02-15-2022 E2 [Mass/Vol] 42.6 pg/mL [facility] Comment on above: NORMAL REFERENCE RAN [...] Oliva on 02-15-2022 Ferritin [Mass/Vol] 138 ng/mL 8 [facility] Serum or plasma gamma globul in measurement by electrophoresis (mass/volume)Ordered By: Andreas Oliva on 02-15-2022 Gamma globulin Elph [Mass/Vol] 1.1 g/dL 0.4-1.8 [facility] Serum or plasma hepatitis B virus surface antigen detection by immunoassayOrdered By: Andreas Oliva on 02-15-2022 HBV surface Ag IA Ql Negative Negative [facility] Serum or plasma immunoelectr ophoresis interpretation (nominal result)Ordered By: Andreas Oliva on 02-15-2022 Interpretation IEP [Interp] Comment . [facility] Comment on above: No monoclonality det ected. Serum or plasma prolactin me asurement (mass/volume)Ordered By: Zeus Miller on 02-15-2022 Prolactin [Mass/Vol] 9.0 ng/mL [facility] Comment on above: NORMAL REFERENCE RAN GES FEMALE NON- 2.2 - 30.3 ng/mL 8.1 - 347.6 ng/mL POST-MENOPAUSAL 0.7 - 31.5 ng/mL MALE 2.5 - 17.4 ng/mL Serum or plasma urea nitroge n measurement (mass/volume)Ordered By: Andreas Oliva on 02-15-2022 Urea nitrogen [Mass/Vol] 14 mg/dL 7-18 [facility] Serum perinuclear neutrophil cytoplasmic antibody titer by immunofluorescenceOrdered By: Andreas Oliva on 02-15-2022 Neutrophil cytoplasmic Ab.perinuclear IF (S) [Titer] <1:20 titer Neg:<1:20 [facility] Comment on above: The presence of posi tive fluorescence exhibiting P-ANCA orC-ANCA patterns alone is not specific for the diagnosis ofWegener's Granulomatosis (WG) or microscopic polyangiitis.Decisions about treatment should not be based solely onANCA IFA results. The International ANCA Group Consensusrecommends follow up testing of positive sera with both WA-3 and MPO-ANCA enzyme immunoassays. As many as 5% serumsamples are positive only by EIA. Ref. AM J Clin [id number];111:507-513. Serum tissue transglutaminas e IgA antibody assay (units/volume)Ordered By: Andreas Oliva on 02-15-2022 tTG IgA Qn (S) <2 U/mL 0-3 [facility] Comment on above: Negative 0 - 3 Weak Positive 4 - 10 Positive >10 Tissue Transglutaminase (tTG) has been identified as the endomysial antigen. Studies have demonstr- ated that endomysial IgA antibodies have over 99% specificity for gluten sensitive enteropathy. Thin prep Papanicolaou smear with manual screeningOrdered By: Andreas Oliva on 02-15-2022 Thin prep Papanicolaou smear with manual screening 33 U/L 15-37 [facility] Thin prep Papanicolaou smear with manual screening 4 5-15 [facility] Thin prep Papanicolaou smear with manual screening 1.1 0.7-1.7 [facility] Thin prep Papanicolaou smear with manual screening 128 ug/dL 80-158 [facility] Comment on above: Detection Limit = 5 Total protein bloodOrdered B y: Andreas Oliva on 02-15-2022 Protein [Mass/Vol] 7.0 g/dL 6.0-8.5 [facility] Whole blood hemoglobin A1c/t otal hemoglobin ratio (mass fraction)Ordered By: Andreas Oliva on 02-15-2022 HbA1c (Bld) [Mass fraction] 5.9 % 3.8-5.6 [facility] Comment on above: Normal < 5.7 % Predi abetic 5.7 - 6.4 % Diabetic >or= 6.5 % Please note range changes. Laboratory - Chemistry and C hemistry - challengeOrdered By: DANIEL BETANCUR on 01-31-2022 Free T4 [Mass/Vol] 1.04 ng/dL 0.76-1.46 [facility] No Panel InformationOrdered By: DANIEL BETANCUR on 01-31-2022 Thyroid Stimulating Hormone (TSH) 4.77 uIU/mL 0.358-3.74 [facility] Ova and parasitesOrdered By: Dr. Angelo on 01-27-2022 Ova and parasites identified LM Nom (Unsp spec) [facility] Absolute lymphocyte countOrd ered By: Dr. Angelo on 01-24-2022 Lymphocytes Auto (Unsp spec) [#/Vol] 2.71 10*3/uL 0.83-4.51 [facility] Basophil percentageOrdered B y: Dr. Angelo on 01-24-2022 Basophils/100 WBC (Bld) 0.6 % 0-1 [facility] Bilirubin [Mass/Vol] 0.50 mg/dL 0.20-1.00 [facility] Comment on above: For patients on eltr ombopag therapy, use of Dimension [place] TBIL is not recommended. Chloride [Moles/Vol] 109 mmol/L 98-107 [facility] Eosinophils/100 WBC (Bld) 2.9 % 0-5 [facility] Glucose [Mass/Vol] 114 mg/dL 74-106 [facility] Comment on above: Fasting Glucose resu lt from 100 to 125 mg/dL suggests IMPAIRED HOMEOSTASIS per A.D.A. criteria. Lactate [Moles/Vol] 0.8 mmol/L 0.4-2.0 [facility] Neutrophils (Bld) [#/Vol] 4.8 10*3/uL 2.0-7.7 [facility] Neutrophils/100 WBC (Bld) 56.1 % 47-70 [facility] Potassium [Moles/Vol] 3.8 mmol/L 3.5-5.1 [facility] Protein [Mass/Vol] 7.3 g/dL 6.4-8.2 [facility] Sodium [Moles/Vol] 137 mmol/L 136-145 [facility] WBC (Bld) [#/Vol] 8.6 10*3/uL 4.4-11.0 [facility] Basophil percentage 0-5 SEEN /hpf 0-5 [facility] Bilirubin Test strip Ql (U)O rdered By: Dr. Angelo on 01-24-2022 Bilirubin Ql (U) Negative Negative [facility] Blood erythrocytes count (nu mber/volume)Ordered By: Dr. Angelo on 01-24-2022 RBC (Bld) [#/Vol] 4.14 10*6/uL 4.2-5.4 [facility] Blood hemoglobin measurement (mass/volume)Ordered By: Dr. Angelo on 01-24-2022 Hemoglobin (Bld) [Mass/Vol] 12.4 g/dL 12.0-15.0 [facility] Blood lymphocytes/100 leukoc ytesOrdered By: Dr. Angelo on 01-24-2022 Lymphocytes/100 WBC (Bld) 31.5 % 19-41 [facility] Blood monocytes/100 leukocyt esOrdered By: Dr. Angelo on 01-24-2022 Monocytes/100 WBC (Bld) 8.6 % 0-10 [facility] Blood platelet mean volumeOr dered By: Dr. Angelo on 01-24-2022 Platelet mean volume (Bld) [Entitic vol] 9.0 fL 6.2-12.0 [facility] Determination of erythrocyte mean corpuscular volume (MCV)Ordered By: Dr. Angelo on 01-24-2022 MCV (RBC) [Entitic vol] 91.5 fL 81-99 [facility] Hematocrit Auto (Bld) [Volum e fraction]Ordered By: Dr. Angelo on 01-24-2022 Hematocrit (Bld) [Volume fraction] 37.9 % 37-47 [facility] Ketones Test strip Ql (U)Ord ered By: Dr. Angelo on 01-24-2022 Ketones Ql (U) 5 mg/dl Negative [facility] Laboratory - Chemistry and C hemistry - challengeOrdered By: Dr. Angelo on 01-24-2022 ALP [Catalytic activity/Vol] 57 U/L 45-117 [facility] ALT [Catalytic activity/Vol] 160 U/L 13-56 [facility] CO2 [Moles/Vol] 24.0 mmol/L 21.0-32.0 [facility] Globulin (S) [Mass/Vol] 3.7 g/dL 2.2-4.2 [facility] Lipase [Catalytic activity/Vol] 144 U/L 73-393 [facility] Urea nitrogen/Creatinine [Mass ratio] 18.6 mg/mg 10-20 [facility] HCG ( test) Ql (U) Negative [facility] Comment on above: Very dilute urine sp ecimens, as indicated by a low specificgravity, may not contain access representative levels of hCG. If is still suspected, a first morning urinespecimen should be collected 48 hours later and tested. Laboratory - Hematology and Cell countsOrdered By: Dr. Angelo on 01-24-2022 Erythrocyte distribution width (RBC) [Entitic vol] 44.2 fL 35.1-43.9 [facility] Erythrocyte distribution width (RBC) [Ratio] 13.2 % 11.6-14.6 [facility] Immature granulocytes/100 WBC (Bld) 0.300 % 0.0-0.9 [facility] Comment on above: IG% - Immature Granu locytes (promyelocytes, myelocytes and metamyelocytes) > 1% indicates that a LEFT SHIFT is Present. MCH (RBC) [Entitic mass] 30.0 pg 27.0-32.0 [facility] Nucleated RBC/100 WBC (Bld) [Ratio] 0 % 0-5 [facility] MCHC Auto (RBC) [Mass/Vol]Or dered By: Dr. Angelo on 01-24-2022 MCHC (RBC) [Mass/Vol] 32.7 g/dL 32-36 [facility] Mucus LM Ql (Urine sed)Order ed By: Dr. Angelo on 01-24-2022 Mucus Ql (Urine sed) 0 SEEN /hpf [facility] Nitrite Test strip Ql (U)Ord ered By: Dr. Angelo on 01-24-2022 Nitrite Ql (U) Negative Negative [facility] No Panel InformationOrdered By: Dr. Angelo on 01-24-2022 Estimated Creatinine Clearance Calc 97.24 ml/min [facility] Estimated GFR (MDRD) Amer 104 mL/min >60 [facility] Comment on above: GFR Calc Estimated GFR (MDRD) Non-Af Amer 86 mL/min >60 [facility] Comment on above: Non- GFR Calc Platelets bldOrdered By: Dr. Angelo on 01-24-2022 Platelets (Bld) [#/Vol] 328 10*3/uL 150-450 [facility] Protein Test strip Ql (U)Ord ered By: Dr. Angelo on 01-24-2022 Protein Ql (U) 30 mg/dl Negative [facility] Serum or plasma albumin cherelle urement (mass/volume)Ordered By: Dr. Angelo on 01-24-2022 Albumin [Mass/Vol] 3.6 g/dL 3.2-5.0 [facility] Serum or plasma albumin/glob ulin mass ratioOrdered By: Dr. Angelo on 01-24-2022 Albumin/Globulin [Mass ratio] 1.0 {ratio} 0.9-2.4 [facility] Serum or plasma calcium cherelle urement (mass/volume)Ordered By: Dr. Angelo on 01-24-2022 Calcium [Mass/Vol] 9.0 mg/dL 8.5-10.1 [facility] Serum or plasma creatinine m easurement (mass/volume)Ordered By: Dr. Angelo on 01-24-2022 Creatinine [Mass/Vol] 0.86 mg/dL 0.55-1.02 [facility] Comment on above: The validity of the calculated GFR & GFRAA in patients over 70 years has not been determined. Clinical correlation is essential. Serum or plasma urea nitroge n measurement (mass/volume)Ordered By: Dr. Angelo on 01-24-2022 Urea nitrogen [Mass/Vol] 16 mg/dL 7-18 [facility] Squamous epithelial cells de tection in urine sediment by light microscopyOrdered By: Dr. Angelo on 01-24-2022 Epithelial cells.squamous LM Ql (Urine sed) 0-5 SEEN /hpf 5-10 [facility] Thin prep Papanicolaou smear with manual screeningOrdered By: Dr. Angelo on 01-24-2022 Thin prep Papanicolaou smear with manual screening 63 U/L 15-37 [facility] Thin prep Papanicolaou smear with manual screening 4 5-15 [facility] Urine blood detectionOrdered By: Dr. Angelo on 01-24-2022 RBC Ql (U) 10 /ul Negative [facility] RBC Ql (U) 0-5 SEEN /hpf 0-5 [facility] Urine clarityOrdered By: Dr. Angelo on 01-24-2022 Clarity (U) Sl. Cloudy Clear [facility] Urine color determinationOrd ered By: Dr. Angelo on 01-24-2022 Color (U) Yellow Yellow [facility] Urine glucose detectionOrder ed By: Dr. Angelo on 01-24-2022 Glucose Ql (U) Normal mg/dl Normal [facility] Urine leukocyte esterase det ection by dipstickOrdered By: Dr. Angelo on 01-24-2022 Leukocyte esterase Test strip Ql (U) 25 /ul Negative [facility] Urine pHOrdered By: Dr. Rosa foster on 01-24-2022 pH (U) 5.0 [pH] 5.0 - 8.0 [facility] Urine sediment bacteria coun t by microscopy (number/high power field)Ordered By: Dr. Angelo on 01-24-2022 Bacteria LM.HPF (Urine sed) [#/Area] 1 /[HPF] None Seen [facility] Urine specific gravity measu rementOrdered By: Dr. Angelo on 01-24-2022 Specific gravity (U) [Rel density] 1.025 1.002-1.030 [facility] Urobilinogen Auto test strip Ql (U)Ordered By: Dr. Angelo on 01-24-2022 Urobilinogen Ql (U) Normal mg/dl Normal [facility] Absolute lymphocyte countOrd ered By: Dr. Pace on 01-15-2022 Lymphocytes Auto (Unsp spec) [#/Vol] 2.40 10*3/uL 0.83-4.51 [facility] Basophil percentageOrdered B y: Dr. Pace on 01-15-2022 Basophils/100 WBC (Bld) 0.6 % 0-1 [facility] Chloride [Moles/Vol] 108 mmol/L 98-107 [facility] Eosinophils/100 WBC (Bld) 2.7 % 0-5 [facility] Glucose [Mass/Vol] 118 mg/dL 74-106 [facility] Comment on above: Fasting Glucose resu lt from 100 to 125 mg/dL suggests IMPAIRED HOMEOSTASIS per A.D.A. criteria. Neutrophils (Bld) [#/Vol] 4.7 10*3/uL 2.0-7.7 [facility] Neutrophils/100 WBC (Bld) 58.8 % 47-70 [facility] Potassium [Moles/Vol] 4.4 mmol/L 3.5-5.1 [facility] Sodium [Moles/Vol] 138 mmol/L 136-145 [facility] WBC (Bld) [#/Vol] 8.1 10*3/uL 4.4-11.0 [facility] Blood erythrocytes count (nu mber/volume)Ordered By: Dr. Pace on 01-15-2022 RBC (Bld) [#/Vol] 4.29 10*6/uL 4.2-5.4 [facility] Blood hemoglobin measurement (mass/volume)Ordered By: Dr. Pace on 01-15-2022 Hemoglobin (Bld) [Mass/Vol] 13.0 g/dL 12.0-15.0 [facility] Blood lymphocytes/100 leukoc ytesOrdered By: Dr. Pace on 01-15-2022 Lymphocytes/100 WBC (Bld) 29.7 % 19-41 [facility] Blood monocytes/100 leukocyt esOrdered By: Dr. Pace on 01-15-2022 Monocytes/100 WBC (Bld) 7.8 % 0-10 [facility] Blood platelet mean volumeOr dered By: Dr. Pace on 01-15-2022 Platelet mean volume (Bld) [Entitic vol] 9.1 fL 6.2-12.0 [facility] Determination of erythrocyte mean corpuscular volume (MCV)Ordered By: Dr. Pace on 01-15-2022 MCV (RBC) [Entitic vol] 92.5 fL 81-99 [facility] Hematocrit Auto (Bld) [Volum e fraction]Ordered By: Dr. Pace on 01-15-2022 Hematocrit (Bld) [Volume fraction] 39.7 % 37-47 [facility] Laboratory - Chemistry and C hemistry - challengeOrdered By: Dr. Pace on 01-15-2022 CO2 [Moles/Vol] 27.0 mmol/L 21.0-32.0 [facility] Urea nitrogen/Creatinine [Mass ratio] 20.9 mg/mg 10-20 [facility] Laboratory - Hematology and Cell countsOrdered By: Dr. Pace on 01-15-2022 Erythrocyte distribution width (RBC) [Entitic vol] 44.6 fL 35.1-43.9 [facility] Erythrocyte distribution width (RBC) [Ratio] 13.2 % 11.6-14.6 [facility] Immature granulocytes/100 WBC (Bld) 0.400 % 0.0-0.9 [facility] Comment on above: IG% - Immature Granu locytes (promyelocytes, myelocytes and metamyelocytes) > 1% indicates that a LEFT SHIFT is Present. MCH (RBC) [Entitic mass] 30.3 pg 27.0-32.0 [facility] Nucleated RBC/100 WBC (Bld) [Ratio] 0 % 0-5 [facility] MCHC Auto (RBC) [Mass/Vol]Or dered By: Dr. Pace on 01-15-2022 MCHC (RBC) [Mass/Vol] 32.7 g/dL 32-36 [facility] No Panel InformationOrdered By: Dr. Pace on 01-15-2022 D-Dimer Quantitative (PE/DVT) 0.36 FEU/ug/m 0.27-0.49 [facility] Comment on above: NORMAL D-Dimer level (<0.50) indicates no DVT or PE. Estimated Creatinine Clearance Calc 134.89 ml/min [facility] Estimated GFR (MDRD) Amer 150 mL/min >60 [facility] Comment on above: GFR Calc Estimated GFR (MDRD) Non-Af Amer 124 mL/min >60 [facility] Comment on above: Non- GFR Calc Troponin I High Sensitivity 5 pg/mL 3.0-54.0 [facility] Comment on above: Please Note: New Renetta t Units and Gender Specific Reference Ranges. For more information see Policy Stat Procedure [place] High Sensitivity Troponin (TNIH) and attachments. Platelets bldOrdered By: Dr. Pace on 01-15-2022 Platelets (Bld) [#/Vol] 305 10*3/uL 150-450 [facility] Serum or plasma calcium cherelle urement (mass/volume)Ordered By: Dr. Pace on 01-15-2022 Calcium [Mass/Vol] 9.7 mg/dL 8.5-10.1 [facility] Serum or plasma creatinine m easurement (mass/volume)Ordered By: Dr. Pace on 01-15-2022 Creatinine [Mass/Vol] 0.62 mg/dL 0.55-1.02 [facility] Comment on above: The validity of the calculated GFR & GFRAA in patients over 70 years has not been determined. Clinical correlation is essential. Serum or plasma urea nitroge n measurement (mass/volume)Ordered By: Dr. Pace on 01-15-2022 Urea nitrogen [Mass/Vol] 13 mg/dL 7-18 [facility] Thin prep Papanicolaou smear with manual screeningOrdered By: Dr. Pace on 01-15-2022 Thin prep Papanicolaou smear with manual screening 3 5-15 [facility] Basophil percentageOrdered B y: Karina Guerra on 12-14-2021 Bilirubin [Mass/Vol] 0.40 mg/dL 0.20-1.00 [facility] Comment on above: For patients on eltr ombopag therapy, use of Dimension [place] TBIL is not recommended. Chloride [Moles/Vol] 107 mmol/L 98-107 [facility] Glucose [Mass/Vol] 122 mg/dL 74-106 [facility] Comment on above: Fasting Glucose resu lt from 100 to 125 mg/dL suggests IMPAIRED HOMEOSTASIS per A.D.A. criteria. Potassium [Moles/Vol] 4.4 mmol/L 3.5-5.1 [facility] Protein [Mass/Vol] 6.9 g/dL 6.4-8.2 [facility] Sodium [Moles/Vol] 137 mmol/L 136-145 [facility] Laboratory - Chemistry and C hemistry - challengeOrdered By: Karina Guerra on 12-14-2021 ALP [Catalytic activity/Vol] 53 U/L 45-117 [facility] ALT [Catalytic activity/Vol] 136 U/L 13-56 [facility] CO2 [Moles/Vol] 27.0 mmol/L 21.0-32.0 [facility] Free T4 [Mass/Vol] 0.96 ng/dL 0.76-1.46 [facility] Globulin (S) [Mass/Vol] 3.6 g/dL 2.2-4.2 [facility] Urea nitrogen/Creatinine [Mass ratio] 20.8 mg/mg 10-20 [facility] No Panel InformationOrdered By: Karina Guerra on 12-14-2021 Estimated GFR (MDRD) Amer 109 mL/min >60 [facility] Comment on above: GFR Calc Estimated GFR (MDRD) Non-Af Amer 90 mL/min >60 [facility] Comment on above: Non- GFR Calc Amaya Level 1.10 mmol/L 0.60-1.20 [facility] Thyroid Stimulating Hormone (TSH) 6.04 uIU/mL 0.358-3.74 [facility] Serum or plasma albumin cherelle urement (mass/volume)Ordered By: Karina Guerra on 12-14-2021 Albumin [Mass/Vol] 3.3 g/dL 3.2-5.0 [facility] Serum or plasma albumin/glob ulin mass ratioOrdered By: Karina Guerra on 12-14-2021 Albumin/Globulin [Mass ratio] 0.9 {ratio} 0.9-2.4 [facility] Serum or plasma calcium cherelle urement (mass/volume)Ordered By: Karina Guerra on 12-14-2021 Calcium [Mass/Vol] 8.8 mg/dL 8.5-10.1 [facility] Serum or plasma creatinine m easurement (mass/volume)Ordered By: Karina Guerra on 12-14-2021 Creatinine [Mass/Vol] 0.82 mg/dL 0.55-1.02 [facility] Comment on above: The validity of the calculated GFR & GFRAA in patients over 70 years has not been determined. Clinical correlation is essential. Serum or plasma urea nitroge n measurement (mass/volume)Ordered By: Karina Guerra on 12-14-2021 Urea nitrogen [Mass/Vol] 17 mg/dL 7-18 [facility] Thin prep Papanicolaou smear with manual screeningOrdered By: Karina Geurra on 12-14-2021 Thin prep Papanicolaou smear with manual screening 59 U/L 15-37 [facility] Thin prep Papanicolaou smear with manual screening 3 5-15 [facility] Absolute lymphocyte counton 11-30-2021 Lymphocytes Auto (Unsp spec) [#/Vol] 2.45 10*3/uL 0.83-4.51 [facility] Basophil percentageon 2021 Basophil percentage 3.3 mg/dL 2.5-4.9 [facility] Basophils/100 WBC (Bld) 0.9 % 0-1 [facility] Bilirubin [Mass/Vol] 0.60 mg/dL 0.20-1.00 [facility] Comment on above: For patients on eltr ombopag therapy, use of Dimension [place] TBIL is not recommended. Chloride [Moles/Vol] 108 mmol/L 98-107 [facility] Cholesterol [Mass/Vol] 190 mg/dL <200 [facility] Comment on above: <200 mg/dL Desirable 200-240 mg/dL Borderline >240 mg/dL High Risk Eosinophils/100 WBC (Bld) 2.9 % 0-5 [facility] Glucose [Mass/Vol] 143 mg/dL 74-106 [facility] Comment on above: Fasting Glucose resu lt greater than or equal to 126 mg/dL suggests DIABETES MELLITUS per A.D.A. criteria. Neutrophils (Bld) [#/Vol] 3.4 10*3/uL 2.0-7.7 [facility] Neutrophils/100 WBC (Bld) 51.3 % 47-70 [facility] Potassium [Moles/Vol] 4.9 mmol/L 3.5-5.1 [facility] Protein [Mass/Vol] 7.4 g/dL 6.4-8.2 [facility] Sodium [Moles/Vol] 140 mmol/L 136-145 [facility] Triglyceride [Mass/Vol] 208 mg/dL <199 [facility] Comment on above: The drugs N-Acetylcy steine and Metamizole may falsely depress this assay.Serum Triglycerides Reference Interval Normal <150 mg/dL Borderline high 150 - 199 mg/dL High 200 - 499 mg/dL Very High > or = 500 mg/dL WBC (Bld) [#/Vol] 6.7 10*3/uL 4.4-11.0 [facility] Blood erythrocytes count (nu mber/volume)on 11-30-2021 RBC (Bld) [#/Vol] 4.08 10*6/uL 4.2-5.4 [facility] Blood hemoglobin measurement (mass/volume)on 11-30-2021 Hemoglobin (Bld) [Mass/Vol] 12.2 g/dL 12.0-15.0 [facility] Blood lymphocytes/100 leukoc yteson 11-30-2021 Lymphocytes/100 WBC (Bld) 36.8 % 19-41 [facility] Blood monocytes/100 leukocyt eson 11-30-2021 Monocytes/100 WBC (Bld) 7.8 % 0-10 [facility] Blood platelet mean volumeon 11-30-2021 Platelet mean volume (Bld) [Entitic vol] 8.9 fL 6.2-12.0 [facility] Determination of erythrocyte mean corpuscular volume (MCV)on 11-30-2021 MCV (RBC) [Entitic vol] 91.9 fL 81-99 [facility] Hematocrit Auto (Bld) [Volum e fraction]on 11-30-2021 Hematocrit (Bld) [Volume fraction] 37.5 % 37-47 [facility] Iron measurement (mass/mass) on 11-30-2021 Iron (Unsp spec) [Mass/Mass] 72 ug/dL 50-170 [facility] Laboratory - Chemistry and C hemistry - challengeon 11-30-2021 ALP [Catalytic activity/Vol] 59 U/L 45-117 [facility] ALT [Catalytic activity/Vol] 134 U/L 13-56 [facility] CO2 [Moles/Vol] 26.0 mmol/L 21.0-32.0 [facility] Globulin (S) [Mass/Vol] 4.0 g/dL 2.2-4.2 [facility] Magnesium [Mass/Vol] 2.1 mg/dL 1.6-2.6 [facility] T4 [Mass/Vol] 9.3 ug/dL 4.8-13.9 [facility] Urea nitrogen/Creatinine [Mass ratio] 21.4 mg/mg 10-20 [facility] Laboratory - Hematology and Cell countson 11-30-2021 Erythrocyte distribution width (RBC) [Entitic vol] 46.2 fL 35.1-43.9 [facility] Erythrocyte distribution width (RBC) [Ratio] 13.6 % 11.6-14.6 [facility] Immature granulocytes/100 WBC (Bld) 0.300 % 0.0-0.9 [facility] Comment on above: IG% - Immature Granu locytes (promyelocytes, myelocytes and metamyelocytes) > 1% indicates that a LEFT SHIFT is Present. MCH (RBC) [Entitic mass] 29.9 pg 27.0-32.0 [facility] Nucleated RBC/100 WBC (Bld) [Ratio] 0 % 0-5 [facility] MCHC Auto (RBC) [Mass/Vol]on 11-30-2021 MCHC (RBC) [Mass/Vol] 32.5 g/dL 32-36 [facility] No Panel Informationon 11-30 Estimated GFR (MDRD) Amer 106 mL/min >60 [facility] Comment on above: GFR Calc Estimated GFR (MDRD) Non-Af Amer 88 mL/min >60 [facility] Comment on above: Non- GFR Calc Miscellaneous Test See comment [facility] Comment on above: TEST RESULT LIMITSSe lenium, Serum/Plasma 150 ug/L 93 - 198A: This test was developed and its performance characteristics determined by [facility]. It has not been cleared or approved by the Food and DrugAdministration. TESTING PERFORMED AT [facility]. ORIGINAL REPORT ON FILE IN LAB CONTAINS ADDITIONAL TEST SITE INFORMATION. Thyroid Stimulating Hormone (TSH) 4.91 uIU/mL 0.358-3.74 [facility] Total Iron Binding Capacity 369 ug/dL 250-450 [facility] Total Triiodothyronine 0.99 ng/mL 0.6-1.81 [facility] Platelets bldon 11-30-2021 Platelets (Bld) [#/Vol] 318 10*3/uL 150-450 [facility] Serum or plasma albumin cherelle urement (mass/volume)on 11-30-2021 Albumin [Mass/Vol] 3.4 g/dL 3.2-5.0 [facility] Serum or plasma albumin/glob ulin mass ratioon 11-30-2021 Albumin/Globulin [Mass ratio] 0.8 {ratio} 0.9-2.4 [facility] Serum or plasma calcium cherelle urement (mass/volume)on 11-30-2021 Calcium [Mass/Vol] 9.1 mg/dL 8.5-10.1 [facility] Serum or plasma cholesterol in HDL measurement (mass/volume)on 11-30-2021 Cholesterol in HDL [Mass/Vol] 29 mg/dL >40 [facility] Comment on above: The drugs N-Acetylcy steine and Metamizole may falsely depress this assay. Reference Range HDL <40 mg/dL Low HDL Cholesterol HDL >or= 60 mg/dL High HDL Cholesterol Serum or plasma cholesterol in VLDL measurement (mass/volume)on 11-30-2021 Cholesterol in VLDL [Mass/Vol] 42 mg/dL 5-40 [facility] Serum or plasma creatinine m easurement (mass/volume)on 11-30-2021 Creatinine [Mass/Vol] 0.84 mg/dL 0.55-1.02 [facility] Comment on above: The validity of the calculated GFR & GFRAA in patients over 70 years has not been determined. Clinical correlation is essential. Serum or plasma ferritin burton surement (mass/volume)on 11-30-2021 Ferritin [Mass/Vol] 237 ng/mL 8-252 [facility] Serum or plasma low density lipoprotein (LDL) cholesterol measurement (mass/volume)on 11-30-2021 Cholesterol in LDL [Mass/Vol] 119 mg/dL 0-130 [facility] Serum or plasma urea nitroge n measurement (mass/volume)on 11-30-2021 Urea nitrogen [Mass/Vol] 18 mg/dL 7-18 [facility] Serum or plasma zinc measure ment (mass/volume)on 11-30-2021 Zinc [Mass/Vol] 80 ug/dL 44-115 [facility] Comment on above: Detection Limit = 5P erformed at: - [facility] [id number] Director: Harsh Harris MD, Phone: [phone] Thin prep Papanicolaou smear with manual screeningon 11-30-2021 Thin prep Papanicolaou smear with manual screening 49 U/L 15-37 [facility] Thin prep Papanicolaou smear with manual screening 6 5-15 [facility] Thin prep Papanicolaou smear with manual screening 117 ug/dL 80-158 [facility] Comment on above: Detection Limit = 5 Absolute lymphocyte counton 09-27-2021 Lymphocytes Auto (Unsp spec) [#/Vol] 2.31 10*3/uL 0.83-4.51 [facility] Work Phone: Basophil percentageon 2021 Basophils/100 WBC (Bld) 0.6 % 0-1 [facility] Work Phone: Bilirubin [Mass/Vol] 0.40 mg/dL 0.20-1.00 [facility] Work Phone: Comment on above: For patients on eltr ombopag therapy, use of Dimension [place] TBIL is not recommended. Eosinophils/100 WBC (Bld) 1.7 % 0-5 [facility] Work Phone: [phone] Neutrophils (Bld) [#/Vol] 3.5 10*3/uL 2.0-7.7 [facility] Work Phone: Neutrophils/100 WBC (Bld) 54.1 % 47-70 [facility] Work Phone: [phone] Protein [Mass/Vol] 7.1 g/dL 6.4-8.2 [facility] Work Phone: [phone] WBC (Bld) [#/Vol] 6.4 10*3/uL 4.4-11.0 [facility] Work Phone: [phone] Blood erythrocytes count (nu mber/volume)on 09-27-2021 RBC (Bld) [#/Vol] 4.16 10*6/uL 4.2-5.4 [facility] Work Phone: Blood hemoglobin measurement (mass/volume)on 09-27-2021 Hemoglobin (Bld) [Mass/Vol] 12.4 g/dL 12.0-15.0 [facility] Work Phone: Blood lymphocytes/100 leukoc yteson 09-27-2021 Lymphocytes/100 WBC (Bld) 36.1 % 19-41 [facility] Work Phone: Blood monocytes/100 leukocyt eson 09-27-2021 Monocytes/100 WBC (Bld) 7.2 % 0-10 [facility] Work Phone: Blood platelet mean volumeon 09-27-2021 Platelet mean volume (Bld) [Entitic vol] 9.6 fL 6.2-12.0 [facility] Work Phone: Determination of erythrocyte mean corpuscular volume (MCV)on 09-27-2021 MCV (RBC) [Entitic vol] 88.0 fL 81-99 [facility] Work Phone: Direct bilirubinon 2 Bilirubin.direct [Mass/Vol] 0.11 mg/dL 0.00-0.30 [facility] Work Phone: Hematocrit Auto (Bld) [Volum e fraction]on 09-27-2021 Hematocrit (Bld) [Volume fraction] 36.6 % 37-47 [facility] Work Phone: Iron measurement (mass/mass) on 09-27-2021 Iron (Unsp spec) [Mass/Mass] 84 ug/dL 50-170 [facility] Work Phone: Laboratory - Chemistry and C hemistry - challengeon 09-27-2021 ALP [Catalytic activity/Vol] 56 U/L 45-117 [facility] Work Phone: ALT [Catalytic activity/Vol] 149 U/L 13-56 [facility] Work Phone: Globulin (S) [Mass/Vol] 3.8 g/dL 2.2-4.2 [facility] Work Phone: Laboratory - Hematology and Cell countson 09-27-2021 Erythrocyte distribution width (RBC) [Entitic vol] 45.2 fL 35.1-43.9 [facility] Work Phone: Erythrocyte distribution width (RBC) [Ratio] 14.0 % 11.6-14.6 [facility] Work Phone: Immature granulocytes/100 WBC (Bld) 0.300 % 0.0-0.9 [facility] Work Phone: [phone] Comment on above: IG% - Immature Granu locytes (promyelocytes, myelocytes and metamyelocytes) > 1% indicates that a LEFT SHIFT is Present. MCH (RBC) [Entitic mass] 29.8 pg 27.0-32.0 [facility] Work Phone: Nucleated RBC/100 WBC (Bld) [Ratio] 0 % 0-5 [facility] Work Phone: MCHC Auto (RBC) [Mass/Vol]on 09-27-2021 MCHC (RBC) [Mass/Vol] 33.9 g/dL 32-[facility] Work [facility]: No Panel Informationon 09-27 Total Iron Binding Capacity 352 ug/dL 250-450 [facility] Work Phone: Platelets bldon 09-27-2021 Platelets (Bld) [#/Vol] 336 10*3/uL 150-450 [facility] Work Phone: Serum or plasma albumin cherelle urement (mass/volume)on 09-27-2021 Albumin [Mass/Vol] 3.3 g/dL 3.2-5.0 [facility] Work Phone: Thin prep Papanicolaou smear with manual screeningon 09-27-2021 Thin prep Papanicolaou smear with manual screening 54 U/L 15-37 [facility] Work Phone: Absolute lymphocyte counton 09-10-2021 Lymphocytes Auto (Unsp spec) [#/Vol] 3.23 10*3/uL 0.83-4.51 [facility] Work Phone: Basophil percentageon 2021 Basophils/100 WBC (Bld) 0.4 % 0-1 [facility] [facility] Work Phone: Chloride [Moles/Vol] 111 mmol/L 98-107 [facility]: Eosinophils/100 WBC (Bld) 2.3 % 0-5 [facility] Work Phone: Glucose [Mass/Vol] 119 mg/dL 74-106 [facility] Work Phone: [phone] Comment on above: Fasting Glucose resu lt from 100 to 125 mg/dL suggests IMPAIRED HOMEOSTASIS per A.D.A. criteria. Neutrophils (Bld) [#/Vol] 4.1 10*3/uL 2.0-7.7 [facility] Work Phone: Neutrophils/100 WBC (Bld) 50.0 % 47-70 [facility] Work Phone: Potassium [Moles/Vol] 3.9 mmol/L 3.5-5.1 [facility] Work Phone: Sodium [Moles/Vol] 145 mmol/L 136-145 [facility] Work Phone: WBC (Bld) [#/Vol] 8.2 10*3/uL 4.4-11.0 [facility] Work Phone: Beta hCG serum qualon 2021 Beta HCG ( test) Ql Negative [facility] Work Phone: [phone] Blood erythrocytes count (nu mber/volume)on 09-10-2021 RBC (Bld) [#/Vol] 4.39 10*6/uL 4.2-5.4 [facility] Work Phone: Blood hemoglobin measurement (mass/volume)on 09-10-2021 Hemoglobin (Bld) [Mass/Vol] 12.9 g/dL 12.0-15.0 [facility] Work Phone: [phone] Blood lymphocytes/100 leukoc yteson 09-10-2021 Lymphocytes/100 WBC (Bld) 39.3 % 19-41 [facility] Work Phone: Blood monocytes/100 leukocyt eson 09-10-2021 Monocytes/100 WBC (Bld) 7.6 % 0-10 [facility] Work Phone: Blood platelet mean volumeon 09-10-2021 Platelet mean volume (Bld) [Entitic vol] 9.4 fL 6.2-12.0 [facility] Work Phone: Determination of erythrocyte mean corpuscular volume (MCV)on 09-10-2021 MCV (RBC) [Entitic vol] 89.1 fL 81-99 [facility] Work Phone: Hematocrit Auto (Bld) [Volum e fraction]on 09-10-2021 Hematocrit (Bld) [Volume fraction] 39.1 % 37-47 [facility] Work Phone: Laboratory - Chemistry and C hemistry - challengeon 09-10-2021 CO2 [Moles/Vol] 28.0 mmol/L 21.0-32.0 [facility] Work Phone: Urea nitrogen/Creatinine [Mass ratio] 20.2 mg/mg 10-20 [facility] Work Phone: Laboratory - Drug toxicology on 09-10-2021 Amphetamines Ql (U) Negative <1000 ng/mL [facility] Work Phone: Benzodiazepines Ql (U) Negative < 200 ng/mL [facility] Work Phone: Cannabinoids Screen Ql (U) Negative < 50 ng/mL [facility] Work Phone: Cocaine Ql (U) Negative < 300 ng/mL [facility] Work Phone: Opiates Ql (U) Negative < 300 ng/mL [facility] Work Phone: Laboratory - Hematology and Cell countson 09-10-2021 Erythrocyte distribution width (RBC) [Entitic vol] 44.7 fL 35.1-43.9 [facility] Work Phone: Erythrocyte distribution width (RBC) [Ratio] 13.8 % 11.6-14.6 [facility] Work Phone: Immature granulocytes/100 WBC (Bld) 0.400 % 0.0-0.9 [facility] Work Phone: Comment on above: IG% - Immature Granu locytes (promyelocytes, myelocytes and metamyelocytes) > 1% indicates that a LEFT SHIFT is Present. MCH (RBC) [Entitic mass] 29.4 pg 27.0-32.0 [facility] Work Phone: Nucleated RBC/100 WBC (Bld) [Ratio] 0 % 0-5 [facility] Work Phone: MCHC Auto (RBC) [Mass/Vol]on 09-10-2021 MCHC (RBC) [Mass/Vol] 33.0 g/dL 32-36 [facility] Work Phone: No Panel Informationon 09-10 Ethyl Alcohol Level < 3.0 mg/dL [facility] Work Phone: Comment on above: The serum:whole bloo d ethanol ratio is approximately 1.14and varies slightly with hematocrit. Medical Alcohol reference interval and critical value innon-tolerant individuals; 50 - 100 Impairment 100 Intoxication 100 - 250 Severe Poisoning 250 - 400 Deep/possible fatal coma Estimated Creatinine Clearance Calc 131.81 ml/min [facility] Work Phone: Estimated GFR (MDRD) Amer 144 mL/min >60 [facility] Work Phone: Comment on above: GFR Calc Estimated GFR (MDRD) Non-Af Amer 119 mL/min >60 [facility] Work Phone: Comment on above: Non- GFR Calc MDMA (Ecstasy) Screen Negative < 500 ng/mL [facility] Work Phone: Urine Barbiturates Screen Negative < 200 ng/mL [facility] Work Phone: Urine Drug Screen Comment [facility] Work Phone: Comment on above: CONFIRMATORY [...] Methadone Screen Negative < 300 ng/mL [facility] Work Phone: Platelets bldon 09-10-2021 Platelets (Bld) [#/Vol] 311 10*3/uL 150-450 [facility] Work Phone: Serum or plasma calcium cherelle urement (mass/volume)on 09-10-2021 Calcium [Mass/Vol] 9.0 mg/dL 8.5-10.1 [facility] Work Phone: Serum or plasma creatinine m easurement (mass/volume)on 09-10-2021 Creatinine [Mass/Vol] 0.64 mg/dL 0.55-1.02 [facility] Work Phone: Comment on above: The validity of the calculated GFR & GFRAA in patients over 70 years has not been determined. Clinical correlation is essential. Serum or plasma urea nitroge n measurement (mass/volume)on 09-10-2021 Urea nitrogen [Mass/Vol] 13 mg/dL 7-18 [facility] Work Phone: Thin prep Papanicolaou smear with manual screeningon 09-10-2021 Thin prep Papanicolaou smear with manual screening 6 5-15 [facility] Work Phone: Urine phencyclidine (PCP) de tectionon 09-10-2021 Phencyclidine Ql (U) Negative < 25 ng/mL [facility] Work Phone: Absolute lymphocyte counton 09-03-2021 Lymphocytes Auto (Unsp spec) [#/Vol] 1.63 10*3/uL 0.83-4.51 [facility] Work Phone: Basophil percentageon 2021 Basophil percentage 0-5 SEEN /hpf 0-5 [facility] Work Phone: Basophils/100 WBC (Bld) 0.6 % 0-1 [facility] Work Phone: [phone] Bilirubin [Mass/Vol] 0.60 mg/dL 0.20-1.00 [facility] Work Phone: Comment on above: For patients on eltr ombopag therapy, use of Dimension [place] TBIL is not recommended. Chloride [Moles/Vol] 110 mmol/L 98-107 [facility] Work Phone: Eosinophils/100 WBC (Bld) 0.9 % 0-5 [facility] Work Phone: Glucose [Mass/Vol] 104 mg/dL 74-106 [facility] Work Phone: Comment on above: Fasting Glucose resu lt from 100 to 125 mg/dL suggests IMPAIRED HOMEOSTASIS per A.D.A. criteria. Neutrophils (Bld) [#/Vol] 4.3 10*3/uL 2.0-7.7 [facility] Work Phone: Neutrophils/100 WBC (Bld) 63.1 % 47-70 [facility] Work Phone: Potassium [Moles/Vol] 4.3 mmol/L 3.5-5.1 [facility] Work Phone: Protein [Mass/Vol] 7.2 g/dL 6.4-8.2 [facility] Work Phone: [phone] Sodium [Moles/Vol] 138 mmol/L 136-145 [facility] Work Phone: WBC (Bld) [#/Vol] 6.8 10*3/uL 4.4-11.0 [facility] Work Phone: [phone] Beta hCG serum qualon 2021 Beta HCG ( test) Ql Negative [facility] Work Phone: Bilirubin Test strip Ql (U)o n 09-03-2021 Bilirubin Ql (U) Negative Negative [facility] Work Phone: Blood erythrocytes count (nu mber/volume)on 09-03-2021 RBC (Bld) [#/Vol] 4.39 10*6/uL 4.2-5.4 [facility] Work Phone: Blood hemoglobin measurement (mass/volume)on 09-03-2021 Hemoglobin (Bld) [Mass/Vol] 12.7 g/dL 12.0-15.0 [facility] Work Phone: Blood lymphocytes/100 leukoc yteson 09-03-2021 Lymphocytes/100 WBC (Bld) 24.0 % 19-41 [facility] Work Phone: Blood monocytes/100 leukocyt eson 09-03-2021 Monocytes/100 WBC (Bld) 10.8 % 0-10 [facility] Work Phone: Blood platelet mean volumeon 09-03-2021 Platelet mean volume (Bld) [Entitic vol] 9.4 fL 6.2-12.0 [facility] Work Phone: Determination of erythrocyte mean corpuscular volume (MCV)on 09-03-2021 MCV (RBC) [Entitic vol] 89.3 fL 81-99 [facility] Work Phone: Hematocrit Auto (Bld) [Volum e fraction]on 09-03-2021 Hematocrit (Bld) [Volume fraction] 39.2 % 37-47 [facility] Work Phone: Ketones Test strip Ql (U)on 09-03-2021 Ketones Ql (U) Negative Negative [facility] Work Phone: Laboratory - Chemistry and C hemistry - challengeon 09-03-2021 ALP [Catalytic activity/Vol] 56 U/L 45-117 [facility] Work Phone: ALT [Catalytic activity/Vol] 149 U/L 13-56 [facility] Work Phone: CO2 [Moles/Vol] 25.0 mmol/L 21.0-32.0 [facility] Work Phone: Globulin (S) [Mass/Vol] 3.7 g/dL 2.2-4.2 [facility] Work Phone: Lipase [Catalytic activity/Vol] 144 U/L 73-393 [facility] Work Phone: Urea nitrogen/Creatinine [Mass ratio] 14.3 mg/mg 10-20 [facility] Work Phone: Laboratory - Hematology and Cell countson 09-03-2021 Erythrocyte distribution width (RBC) [Entitic vol] 44.6 fL 35.1-43.9 [facility] Work Phone: Erythrocyte distribution width (RBC) [Ratio] 13.5 % 11.6-14.6 [facility] Work Phone: Immature granulocytes/100 WBC (Bld) 0.600 % 0.0-0.9 [facility] Work Phone: Comment on above: IG% - Immature Granu locytes (promyelocytes, myelocytes and metamyelocytes) > 1% indicates that a LEFT SHIFT is Present. MCH (RBC) [Entitic mass] 28.9 pg 27.0-32.0 [facility] Work Phone: Nucleated RBC/100 WBC (Bld) [Ratio] 0 % 0-5 [facility] Work Phone: MCHC Auto (RBC) [Mass/Vol]on 09-03-2021 MCHC (RBC) [Mass/Vol] 32.4 g/dL 32-36 [facility] Work Phone: Mucus LM Ql (Urine sed)on Mucus Ql (Urine sed) 0 SEEN /hpf [facility] Work Phone: Nitrite Test strip Ql (U)on 09-03-2021 Nitrite Ql (U) Negative Negative [facility] Work Phone: No Panel Informationon 09-03 Estimated Creatinine Clearance Calc 75.32 ml/min [facility] Work Phone: Estimated GFR (MDRD) Amer 76 mL/min >60 [facility] Work Phone: Comment on above: GFR Calc Estimated GFR (MDRD) Non-Af Amer 63 mL/min >60 [facility] Work Phone: Comment on above: Non- GFR Calc Platelets bldon 09-03-2021 Platelets (Bld) [#/Vol] 300 10*3/uL 150-450 [facility] Work Phone: Protein Test strip Ql (U)on 09-03-2021 Protein Ql (U) 30 mg/dl Negative [facility] Work Phone: Serum or plasma albumin cherelle urement (mass/volume)on 09-03-2021 Albumin [Mass/Vol] 3.5 g/dL 3.2-5.0 [facility] Work Phone: Serum or plasma albumin/glob ulin mass ratioon 09-03-2021 Albumin/Globulin [Mass ratio] 0.9 {ratio} 0.9-2.4 [facility] Work Phone: Serum or plasma calcium cherelle urement (mass/volume)on 09-03-2021 Calcium [Mass/Vol] 9.1 mg/dL 8.5-10.1 [facility] Work Phone: Serum or plasma creatinine m easurement (mass/volume)on 09-03-2021 Creatinine [Mass/Vol] 1.12 mg/dL 0.55-1.02 [facility] Work Phone: Comment on above: The validity of the calculated GFR & GFRAA in patients over 70 years has not been determined. Clinical correlation is essential. Serum or plasma urea nitroge n measurement (mass/volume)on 09-03-2021 Urea nitrogen [Mass/Vol] 16 mg/dL 7-18 [facility] Work Phone: Squamous epithelial cells de tection in urine sediment by light microscopyon 09-03-2021 Epithelial cells.squamous LM Ql (Urine sed) 5-10 SEEN /hpf 5-10 [facility] Work Phone: Thin prep Papanicolaou smear with manual screeningon 09-03-2021 Thin prep Papanicolaou smear with manual screening 55 U/L 15-37 [facility] Work Phone: Thin prep Papanicolaou smear with manual screening 3 5-15 [facility] Work Phone: Urine blood detectionon 08-19 RBC Ql (U) Negative Negative [facility] Work Phone: RBC Ql (U) 0 SEEN /hpf 0-5 [facility] Work Phone: Urine clarityon 09-03-2021 Clarity (U) Cloudy Clear [facility] Work Phone: Urine color determinationon 09-03-2021 Color (U) Yellow Yellow [facility] Work Phone: Urine glucose detectionon Glucose Ql (U) Normal mg/dl Normal [facility] Work Phone: Urine leukocyte esterase det ection by dipstickon 09-03-2021 Leukocyte esterase Test strip Ql (U) 100 /ul Negative [facility] Work Phone: Urine pHon 09-03-2021 pH (U) 5.0 [pH] 5.0 - 8.0 [facility] Work Phone: Urine sediment bacteria coun t by microscopy (number/high power field)on 09-03-2021 Bacteria LM.HPF (Urine sed) [#/Area] 1 /[HPF] None Seen [facility] Work Phone: Urine specific gravity measu rementon 09-03-2021 Specific gravity (U) [Rel density] 1.020 1.002-1.030 [facility] Work Phone: Urobilinogen Auto test strip Ql (U)on 09-03-2021 Urobilinogen Ql (U) Normal mg/dl Normal [facility] Work Phone: Basophil percentageon 2021 Bilirubin [Mass/Vol] 0.50 mg/dL 0.20-1.00 [facility] Work Phone: Comment on above: For patients on eltr ombopag therapy, use of Dimension [place] TBIL is not recommended. Chloride [Moles/Vol] 109 mmol/L 98-107 [facility] Work Phone: Cholesterol [Mass/Vol] 212 mg/dL <200 [facility] Work Phone: Comment on above: <200 mg/dL Desirable 200-240 mg/dL Borderline >240 mg/dL High Risk Glucose [Mass/Vol] 84 mg/dL 74-106 [facility] Work Phone: Potassium [Moles/Vol] 4.2 mmol/L 3.5-5.1 [facility] Work Phone: Protein [Mass/Vol] 7.4 g/dL 6.4-8.2 [facility] Work Phone: Sodium [Moles/Vol] 140 mmol/L 136-145 [facility] Work Phone: Triglyceride [Mass/Vol] 219 mg/dL <199 [facility] Work Phone: Comment on above: The drugs N-Acetylcy steine and Metamizole may falsely depress this assay.Serum Triglycerides Reference Interval Normal <150 mg/dL Borderline high 150 - 199 mg/dL High 200 - 499 mg/dL Very High > or = 500 mg/dL Laboratory - Chemistry and C hemistry - challengeon 08-31-2021 ALP [Catalytic activity/Vol] 59 U/L 45-117 [facility] Work Phone: ALT [Catalytic activity/Vol] 197 U/L 13-56 [facility] Work Phone: CO2 [Moles/Vol] 25.0 mmol/L 21.0-32.0 [facility] Work Phone: Globulin (S) [Mass/Vol] 3.8 g/dL 2.2-4.2 [facility] Work Phone: Urea nitrogen/Creatinine [Mass ratio] 22.3 mg/mg 10-20 [facility] Work Phone: No Panel Informationon 08-31 Estimated GFR (MDRD) Amer 119 mL/min >60 [facility] Work Phone: Comment on above: GFR Calc Estimated GFR (MDRD) Non-Af Amer 98 mL/min >60 [facility] Work Phone: Comment on above: Non- GFR Calc Serum or plasma albumin cherelle urement (mass/volume)on 08-31-2021 Albumin [Mass/Vol] 3.6 g/dL 3.2-5.0 [facility] Work Phone: Serum or plasma albumin/glob ulin mass ratioon 08-31-2021 Albumin/Globulin [Mass ratio] 0.9 {ratio} 0.9-2.4 [facility] Work Phone: Serum or plasma calcium cherelle urement (mass/volume)on 08-31-2021 Calcium [Mass/Vol] 9.1 mg/dL 8.5-10.1 [facility] Work Phone: Serum or plasma cholesterol in HDL measurement (mass/volume)on 08-31-2021 Cholesterol in HDL [Mass/Vol] 30 mg/dL >40 [facility] Work Phone: Comment on above: The drugs N-Acetylcy steine and Metamizole may falsely depress this assay. Reference Range HDL <40 mg/dL Low HDL Cholesterol HDL >or= 60 mg/dL High HDL Cholesterol Serum or plasma cholesterol in VLDL measurement (mass/volume)on 08-31-2021 Cholesterol in VLDL [Mass/Vol] 44 mg/dL 5-40 [facility] Work Phone: Serum or plasma creatinine m easurement (mass/volume)on 08-31-2021 Creatinine [Mass/Vol] 0.76 mg/dL 0.55-1.02 [facility] Work Phone: Comment on above: The validity of the calculated GFR & GFRAA in patients over 70 years has not been determined. Clinical correlation is essential. Serum or plasma low density lipoprotein (LDL) cholesterol measurement (mass/volume)on 08-31-2021 Cholesterol in LDL [Mass/Vol] 138 mg/dL 0-130 [facility] Work Phone: Serum or plasma urea nitroge n measurement (mass/volume)on 08-31-2021 Urea nitrogen [Mass/Vol] 17 mg/dL 7-18 [facility] Work Phone: Thin prep Papanicolaou smear with manual screeningon 08-31-2021 Thin prep Papanicolaou smear with manual screening 98 U/L 15-37 [facility] Work Phone: Thin prep Papanicolaou smear with manual screening 6 5-15 [facility] Work Phone: Basophil percentageon 2021 Basophil percentage 3.8 mg/dL 2.5-4.9 [facility] Work Phone: Chloride [Moles/Vol] 108 mmol/L 98-107 [facility] Work Phone: Glucose [Mass/Vol] 112 mg/dL 74-106 [facility] Work Phone: Comment on above: Fasting Glucose resu lt from 100 to 125 mg/dL suggests IMPAIRED HOMEOSTASIS per A.D.A. criteria. Potassium [Moles/Vol] 4.2 mmol/L 3.5-5.1 [facility] Work Phone: Sodium [Moles/Vol] 139 mmol/L 136-145 [facility] Work Phone: Laboratory - Chemistry and C hemistry - challengeon 08-24-2021 CO2 [Moles/Vol] 29.0 mmol/L 21.0-32.0 [facility] Work Phone: Urea nitrogen/Creatinine [Mass ratio] 17.5 mg/mg 10-20 [facility] Work Phone: No Panel Informationon 08-24 Estimated GFR (MDRD) Amer 148 mL/min >60 [facility] Work Phone: Comment on above: GFR Calc Estimated GFR (MDRD) Non-Af Amer 123 mL/min >60 [facility] Work Phone: Comment on above: Non- GFR Calc Amaya Level 0.60 mmol/L 0.60-1.20 [facility] Work Phone: Thyroid Stimulating Hormone (TSH) 2.96 uIU/mL 0.358-3.74 [facility] Work Phone: Serum or plasma albumin cherelle urement (mass/volume)on 08-24-2021 Albumin [Mass/Vol] 3.4 g/dL 3.2-5.0 [facility] Work Phone: Serum or plasma calcium cherelle urement (mass/volume)on 08-24-2021 Calcium [Mass/Vol] 9.2 mg/dL 8.5-10.1 [facility] Work Phone: Serum or plasma creatinine m easurement (mass/volume)on 08-24-2021 Creatinine [Mass/Vol] 0.63 mg/dL 0.55-1.02 [facility] Work Phone: Comment on above: The validity of the calculated GFR & GFRAA in patients over 70 years has not been determined. Clinical correlation is essential. Serum or plasma urea nitroge n measurement (mass/volume)on 08-24-2021 Urea nitrogen [Mass/Vol] 11 mg/dL 7-18 [facility] Work Phone: Basophil percentageon 2021 Chloride [Moles/Vol] 112 mmol/L 98-107 [facility] Work Phone: Glucose [Mass/Vol] 100 mg/dL 74-106 [facility] Work Phone: Comment on above: Fasting Glucose resu lt from 100 to 125 mg/dL suggests IMPAIRED HOMEOSTASIS per A.D.A. criteria. Potassium [Moles/Vol] 4.1 mmol/L 3.5-5.1 [facility] Work Phone: Sodium [Moles/Vol] 140 mmol/L 136-145 [facility] Work Phone: WBC (Bld) [#/Vol] 6.6 10*3/uL 4.4-11.0 [facility] Work Phone: Blood erythrocytes count (nu mber/volume)on 06-27-2021 RBC (Bld) [#/Vol] 4.42 10*6/uL 4.2-5.4 [facility] Work [facility]: Blood hemoglobin measurement (mass/volume)on 06-27-2021 Hemoglobin (Bld) [Mass/Vol] 12.7 g/dL 12.0-15.0 [facility] Work Phone: Blood platelet mean volumeon 06-27-2021 Platelet mean volume (Bld) [Entitic vol] 9.4 fL 6.2-12.0 [facility] Work Phone: Determination of erythrocyte mean corpuscular volume (MCV)on 06-27-2021 MCV (RBC) [Entitic vol] 87.3 fL 81-99 [facility] Work Phone: Hematocrit Auto (Bld) [Volum e fraction]on 06-27-2021 Hematocrit (Bld) [Volume fraction] 38.6 % 37-47 [facility] Work Phone: Iron measurement (mass/mass) on 06-27-2021 Iron (Unsp spec) [Mass/Mass] 50 ug/dL 50-170 [facility] Work Phone: Laboratory - Chemistry and C hemistry - challengeon 06-27-2021 CO2 [Moles/Vol] 23.0 mmol/L 21.0-32.0 [facility] Work Phone: Urea nitrogen/Creatinine [Mass ratio] 18.4 mg/mg 10-20 [facility] Work Phone: Laboratory - Hematology and Cell countson 06-27-2021 Erythrocyte distribution width (RBC) [Entitic vol] 45.0 fL 35.1-43.9 [facility] Work Phone: Erythrocyte distribution width (RBC) [Ratio] 14.0 % 11.6-14.6 [facility] Work Phone: MCH (RBC) [Entitic mass] 28.7 pg 27.0-32.0 [facility] Work Phone: MCHC Auto (RBC) [Mass/Vol]on 06-27-2021 MCHC (RBC) [Mass/Vol] 32.9 g/dL 32-36 [facility] Work Phone: No Panel Informationon 06-27 Estimated GFR (MDRD) Amer 176 mL/min >60 [facility] Work Phone: Comment on above: GFR Calc Estimated GFR (MDRD) Non-Af Amer 145 mL/min >60 [facility] Work Phone: Comment on above: Non- GFR Calc Total Iron Binding Capacity 374 ug/dL 250-450 [facility] Work Phone: Platelets bldon 06-27-2021 Platelets (Bld) [#/Vol] 273 10*3/uL 150-450 [facility] Work Phone: Serum or plasma calcium cherelle urement (mass/volume)on 06-27-2021 Calcium [Mass/Vol] 8.7 mg/dL 8.5-10.1 [facility] Work Phone: Serum or plasma creatinine m easurement (mass/volume)on 06-27-2021 Creatinine [Mass/Vol] 0.54 mg/dL 0.55-1.02 [facility] Work Phone: Comment on above: The validity of the calculated GFR & GFRAA in patients over 70 years has not been determined. Clinical correlation is essential. Serum or plasma urea nitroge n measurement (mass/volume)on 06-27-2021 Urea nitrogen [Mass/Vol] 10 mg/dL 7-18 [facility] Work Phone: Thin prep Papanicolaou smear with manual screeningon 06-27-2021 Thin prep Papanicolaou smear with manual screening 5 5-15 [facility] Work Phone: MRI Brain w/oon 02-15-2021 [...] by MARY CORDOVA on 02/15/2021 1547 Normal [facility] LABORATORYOrdered By: Sandra Spain on 12-14-2020 Basophil, [...] No radiographic evidence of acute osseous injury. Nutrition Specialist: ELLYN Transcribe Date/Time: Jan 07 2020 9:27A Dictated by : ROBB JULES MD This examination was interpreted and the report reviewed and electronically signed by: ROBB JULES MD on Jan 07 2020 9:29AM [facility] DIVISION OF RADIOLOGY Radiology Study observation (narrative) [facility] No Panel InformationOrdered By: Ccf Provider on 01-07-2020 [facility] XR Ankle - left AP and Later [...] Joint spaces preserved. DIVISION OF RADIOLOGY Provider, [facility] Dylan Beltran - 01/07/2020 * * *Final Report* * [...] No radiographic evidence of acute osseous injury. Nutrition Specialist: ELLYN Transcribe Date/Time: Jan 07 2020 9:27A Dictated by : ROBB JULES MD This examination was interpreted and the report reviewed and electronically signed by: ROBB JULES MD on Jan 07 2020 9:29AM [facility] XR Foot - left AP and Latera [...] Joint spaces preserved. DIVISION OF RADIOLOGY Provider, [facility] - 01/07/2020 * * *Final Report* * [...] No radiographic evidence of acute osseous injury. Nutrition Specialist: ELLYN Transcribe Date/Time: Jan 07 2020 9:27A Dictated by : ROBB JULES MD This examination was interpreted and the report reviewed and electronically signed by: ROBB JULES MD on Jan 07 2020 9:29AM [facility] Progress Noteon 01-31-2017 [employer] Authentication Interface Message Text SUBJECTIVE: Marion Gutierrez [...] 14, 2016. Were [facility]. At that time she was diagnosed with [...] medication and then placed on Abilify and Amaya at this lastadmission. I did review the [...] may recall Marion's mother had noted dark [place] courte oreilles around her neck, axilla,and cleavage area for [...] right ankle Autism Depression hosp at 10y [facility] prior to Dx w/autism [...] Z= 2.24) Growth percentiles are based on [facility] 2-20 Years data.Ht Readings from Last 3 Encounters:01/31/17 167.9 cm08/02/16 167.9 cm (76 %, Z= 0.71)*06/21/16 167.5 cm (74 %, Z= 0.65) Growth percentiles are based on [facility] 2-20 Years data.Body mass index is 39.77 [...] active.5. Need to transition to adult either DIE HARDENER, aviation project manager, or family provider.6. Obtain [id number] total of 25 minutes was spent during the visit today with more than 50% oftotal time spent in face to face counseling and/or coordination of care. Normal [facility] Progress Noteon 09-18-2016 Real Estate Agent Authentication Interface Message Text CHIEF COMPLAINT: Shoulder [...] right ankle Autism Depression hosp at 10y [facility] prior to Dx w/autism [...] present illness or past medical history. Normal [facility] Real Estate Agent Authentication Interface Message Text PHYSICIAN STATEMENT:This patient was personally seen and examined by me in conjunction with ournurse practioner, Delio Brunson, Edward. After shared discussion, jss documented the pertinent [...] In addition she is scheduled tosee an seat coverer because of some unusual mobility in one of the eyes.There are many factors there probably contributing to her generalized pain inthe shoulders and knees and hopefully we can work these out without furtherextensive workup. Normal [facility] Ova and parasites Ova and parasites identified LM Nom (Unsp spec) [facility] Work Phone: Stool lactoferrin detection by immunoassay Lactoferrin IA Ql (Stl) [facility] Work Phone: Vital Signs Date Time Vital Sign Value Performing Clinician Facility 09-21-2024 22:47-0400 Body temperature 97.6 [degF] Naina Da Silva MIXER HELPER-C Work Phone: [facility] 09-21-2024 22:47-0400 Diastolic blood pressure 72 mm[Hg] Naina Da Silva MIXER HELPER-C Work Phone: 3(824)916-002178 [place] [address] 09-21-2024 22:47-0400 Heart rate 75 /min Naina Da Silva MIXER HELPER-C Work Phone: 5(945)135-865778 [place] [address] 09-21-2024 22:47-0400 Respiratory rate 16 /min Naina Da Silva MIXER HELPER-C Work Phone: 5(154)955-212578 [place] [address] 09-21-2024 22:47-0400 SaO2% (BldA) [Mass fraction] 98 % Naina Da Silva MIXER HELPER-C Work Phone: 4(827)635-479178 [place] [address] 09-21-2024 22:47-0400 Systolic blood pressure 145 mm[Hg] Naina Da Silva MIXER HELPER-C Work Phone: 9(665)305-765178 [place] [address] 09-21-2024 20:32-0400 Body height 167.64 cm Naina Da Silva MIXER HELPER-C Work Phone: 0(038)457-456678 [place] [address] 09-21-2024 20:32-0400 Body mass index (BMI) [Ratio] 47.1 kg/m2 Naina Da Silva MIXER HELPER-C Work Phone: 2(873)239-376878 [place] [address] 09-21-2024 20:32-0400 Body weight 132.44 kg Naina Da Silva MIXER HELPER-C Work Phone: 0(944)283-641541 [address] 09-04-2024 23:45-0400 Body temperature 98.4 [degF] Naina Da Silva MIXER HELPER-C Work Phone: 4(118)709-432584 [place] [address] 09-04-2024 23:45-0400 Diastolic blood pressure 74 mm[Hg] Naina Da Silva MIXER HELPER-C Work Phone: 4(385)145-080484 [place] [address] 09-04-2024 23:45-0400 Heart rate 85 /min Naina Da Silva MIXER HELPER-C Work Phone: 2(748)653-918584 [place] [address] 09-04-2024 23:45-0400 Respiratory rate 14 /min Naina Da Silva MIXER HELPER-C Work Phone: 3(521)878-213284 [place] [address] 09-04-2024 23:45-0400 SaO2% (BldA) [Mass fraction] 99 % Naina Da Silva MIXER HELPER-C Work Phone: 1(066)629-572684 [place] [address] 09-04-2024 23:45-0400 Systolic blood pressure 141 mm[Hg] Naina Da Silva MIXER HELPER-C Work Phone: 4(456)266-704084 [place] [address] 09-04-2024 21:14-0400 Body height 167.64 cm Naina Da Silva MIXER HELPER-C Work Phone: 2(451)882-239584 [place] [address] 09-04-2024 21:14-0400 Body mass index (BMI) [Ratio] 48.2 kg/m2 Naina Da Silva MIXER HELPER-C Work Phone: 1(178)325-798684 [place] [address] 09-04-2024 21:14-0400 Body weight 135.62 kg Naina Da Silva MIXER HELPER-C Work Phone: 8(258)729-663084 [place] [address] 07-24-2024 07:25-0400 Body mass index (BMI) [Ratio] 47 kg/m2 Naina Da Silva MIXER HELPER-C Work Phone: 2(058)488-112884 [place] [address] 07-24-2024 07:25-0400 Body weight 132.9 kg Naina Da Silva MIXER HELPER-C Work Phone: 2(200)419-869184 [place] [address] 07-24-2024 07:25-0400 Diastolic blood pressure 76 mm[Hg] Naina Da Silva MIXER HELPER-C Work Phone: 5(981)673-647784 [place] [address] 07-24-2024 07:25-0400 Heart rate 56 /min Naina Da Silva MIXER HELPER-C Work Phone: [facility] 07-24-2024 07:25-0400 Respiratory rate 18 /min Naina Da Silva MIXER HELPER-C Work Phone: [facility] 07-24-2024 07:25-0400 SaO2% (BldA) [Mass fraction] 97 % Naina Da Silva MIXER HELPER-C Work Phone: [facility] 07-24-2024 07:25-0400 Systolic blood pressure 121 mm[Hg] Naina Da Silva MIXER HELPER-C Work Phone: [facility] 07-15-2024 10:49-0400 Body height 170.2 cm Jey Johnson MD Work Phone: [facility] 07-15-2024 10:49-0400 Body mass index (BMI) [Ratio] 46.42 kg/m2 Jey Johnson MD Work Phone: [facility] 07-15-2024 10:49-0400 Body weight 134.45 kg Jey Johnson MD Work Phone: [facility] 07-15-2024 10:49-0400 Diastolic blood pressure 78 mm[Hg] Jey Johnson MD Work Phone: [facility] 07-15-2024 10:49-0400 Heart rate 61 /min Jey Johnson MD Work Phone: [facility] 07-15-2024 10:49-0400 Respiratory rate 20 /min Jey Johnson MD Work Phone: [facility] 07-15-2024 10:49-0400 SaO2% (BldA) [Mass fraction] 97 % Jey Johnson MD Work Phone: [facility] 07-15-2024 10:49-0400 Systolic blood pressure 122 mm[Hg] Jey Johnson MD Work Phone: [facility] 06-03-2024 13:14-0400 Body temperature 97.9 [degF] Naina Da Silva MIXER HELPER-C Work Phone: [facility] 06-03-2024 13:14-0400 Diastolic blood pressure 87 mm[Hg] Naina Da Silva MIXER HELPER-C Work Phone: [facility] 06-03-2024 13:14-0400 Heart rate 107 /min Naina Da Silva MIXER HELPER-C Work Phone: 5(065)317-784478 [place] [address] 06-03-2024 13:14-0400 Respiratory rate 22 /min Naina Da Silva MIXER HELPER-C Work Phone: 0(014)124-678078 [place] [address] 06-03-2024 13:14-0400 SaO2% (BldA) [Mass fraction] 99 % Naina Da Silva MIXER HELPER-C Work Phone: 7(349)564-775478 [place] [address] 06-03-2024 13:14-0400 Systolic blood pressure 161 mm[Hg] Naina Da Silva MIXER HELPER-C Work Phone: 0(584)482-269878 [place] [address] 06-03-2024 09:38-0400 Body height 168 cm Naina Da Silva MIXER HELPER-C Work Phone: 8(683)954-745978 [place] [address] 06-03-2024 09:38-0400 Body mass index (BMI) [Ratio] 47.7 kg/m2 Naina Da Silva MIXER HELPER-C Work Phone: 0(353)991-702378 [place] [address] 06-03-2024 09:38-0400 Body weight 134.7 kg Naina Da Silva MIXER HELPER-C Work Phone: 1(917)115-335278 [place] [address] 06-02-2024 19:26-0400 Body height 167.64 cm Naina Da Silva MIXER HELPER-C Work Phone: 3(202)005-195178 [place] [address] 06-02-2024 19:26-0400 Body mass index (BMI) [Ratio] 47.9 kg/m2 Naina Da Silva MIXER HELPER-C Work Phone: 3(891)473-953878 [place] [address] 06-02-2024 19:26-0400 Body temperature 97.8 [degF] Naina Da Silva MIXER HELPER-C Work Phone: 5(164)447-916578 [place] [address] 06-02-2024 19:26-0400 Body weight 134.76 kg Naina Da Silva MIXER HELPER-C Work Phone: 8(712)462-615178 [place] [address] 06-02-2024 19:26-0400 Diastolic blood pressure 112 mm[Hg] Naina Da Silva MIXER HELPER-C Work Phone: 0(125)959-700478 [place] [address] 06-02-2024 19:26-0400 Heart rate 103 /min Naina Da Silva MIXER HELPER-C Work Phone: 9(674)242-594578 [place] [address] 06-02-2024 19:26-0400 Respiratory rate 13 /min Naina Da Silva MIXER HELPER-C Work Phone: 3(152)624-284778 [place] [address] 06-02-2024 19:26-0400 SaO2% (BldA) [Mass fraction] 100 % Naina Da Silva MIXER HELPER-C Work Phone: 5(057)317-445678 [place] [address] 06-02-2024 19:26-0400 Systolic blood pressure 172 mm[Hg] Naina Da Silva MIXER HELPER-C Work Phone: 4(970)212-767178 [place] [address] 05-29-2024 14:41-0400 Diastolic blood pressure 114 mm[Hg] Naina Da Silva MIXER HELPER-C Work Phone: 6(281)057-665278 [place] [address] 05-29-2024 14:41-0400 Systolic blood pressure 161 mm[Hg] Naina Da Silva MIXER HELPER-C Work Phone: 0(255)290-979978 [place] [address] 05-29-2024 14:29-0400 Body mass index (BMI) [Ratio] 47.7 kg/m2 Naina Da Silva MIXER HELPER-C Work Phone: 3(463)275-994878 [place] [address] 05-29-2024 14:29-0400 Body weight 134.26 kg Naina Da Silva MIXER HELPER-C Work Phone: 4(261)056-253378 [place] [address] 05-29-2024 14:29-0400 Heart rate 98 /min Naina Da Silva MIXER HELPER-C Work Phone: 4(345)652-499878 [place] [address] 05-29-2024 14:29-0400 Respiratory rate 18 /min Naina Da Silva MIXER HELPER-C Work Phone: 6(413)667-915178 [place] [address] 05-29-2024 14:29-0400 SaO2% (BldA) [Mass fraction] 97 % Naina Da Silva NP-C Work Phone: [facility] 05-16-2024 08:52-0400 Body mass index (BMI) [Ratio] 46.28 kg/m2 Huey Cortes DO, PhD Work Phone: [facility] 05-16-2024 08:52-0400 Body weight 134.04 kg Huey Cortes DO, PhD Work Phone: [facility] Comment on above: Patient-reported 05-16-2024 08:52-0400 Diastolic blood pressure 102 mm[Hg] Huey Cortes DO, PhD Work Phone: [facility] Comment on above: Patient-reported 05-16-2024 08:52-0400 Heart rate 100 /min Huey Cortes DO, PhD Work Phone: [facility] Comment on above: Patient-reported 05-16-2024 08:52-0400 Systolic blood pressure 177 mm[Hg] Huey Cortes DO, PhD Work Phone: [facility] Comment on above: Patient-reported 05-15-2024 00:14-0400 Body temperature 98.1 [degF] Naina Da Silva NP-C Work Phone: 6(747)653-850978 [place] [address] 05-15-2024 00:14-0400 Diastolic blood pressure 65 mm[Hg] Naina Da Silva NP-C Work Phone: [facility] 05-15-2024 00:14-0400 Heart rate 88 /min Naina Da Silva NP-C Work Phone: 7(980)385-522378 [place] [address] 05-15-2024 00:14-0400 Respiratory rate 22 /min Naina Da Silva NP-C Work Phone: 0(985)040-133078 [place] [address] 05-15-2024 00:14-0400 SaO2% (BldA) [Mass fraction] 99 % Naina Da Silva NP-C Work Phone: [facility] 05-15-2024 00:14-0400 Systolic blood pressure 123 mm[Hg] Naina Avinash MIXER HELPER-C Work Phone: 5(992)584-597278 [place] [address] 05-14-2024 20:47-0400 Body height 167.64 cm Naina Da Silva MIXER HELPER-C Work Phone: 7(466)764-463984 [place] [address] 05-14-2024 20:47-0400 Body mass index (BMI) [Ratio] 47.1 kg/m2 Nainaben Da Silva MIXER HELPER-C Work Phone: 6(349)880-655184 [place] [address] 05-14-2024 20:47-0400 Body weight 132.53 kg Nainakourtney Da Silva MIXER HELPER-C Work Phone: 2(811)516-706684 [place] [address] 05-08-2024 17:24-0400 Body temperature 97.2 [degF] Naina Da Silva MIXER HELPER-C Work Phone: 3(052)752-874584 [place] [address] 05-08-2024 17:24-0400 Diastolic blood pressure 96 mm[Hg] Naina Da Silva MIXER HELPER-C Work Phone: 5(787)245-773984 [place] [address] 05-08-2024 17:24-0400 Heart rate 79 /min Nainaben Da Silva MIXER HELPER-C Work Phone: 8(923)885-570484 [place] [address] 05-08-2024 17:24-0400 Respiratory rate 14 /min Naina Da Silva MIXER HELPER-C Work Phone: 1(115)476-305184 [place] [address] 05-08-2024 17:24-0400 SaO2% (BldA) [Mass fraction] 99 % Naina Da Silva MIXER HELPER-C Work Phone: 4(567)690-295878 [place] [address] 05-08-2024 17:24-0400 Systolic blood pressure 128 mm[Hg] Naina Da Silva MIXER HELPER-C Work Phone: 8(817)899-234184 [place] [address] 05-08-2024 14:36-0400 Body height 167.64 cm Naina Da Silva MIXER HELPER-C Work Phone: 0(207)499-630084 [place] [address] 05-08-2024 14:36-0400 Body mass index (BMI) [Ratio] 46.1 kg/m2 Naina Da Silva MIXER HELPER-C Work Phone: 2(813)854-597384 [place] [address] 05-08-2024 14:36-0400 Body weight 129.72 kg Naina CROWDERC Work Phone: [facility] 04-15-2024 11:25-0500 Body height 170.2 cm Jey Johnson MD Work Phone: [facility] 04-15-2024 11:25-0500 Body mass index (BMI) [Ratio] 45.67 kg/m2 Jey Johnson MD Work Phone: [facility] 04-15-2024 11:25-0500 Body weight 132.27 kg Jey Johnson MD Work Phone: [facility] 04-15-2024 11:25-0500 Diastolic blood pressure 68 mm[Hg] Jey Johnson MD Work Phone: [facility] 04-15-2024 11:25-0500 Heart rate 68 /min Jey Johnson MD Work Phone: [facility] 04-15-2024 11:25-0500 Respiratory rate 20 /min Jey Johnson MD Work Phone: [facility] 04-15-2024 11:25-0500 SaO2% (BldA) [Mass fraction] 98 % Jey Johnson MD Work Phone: [facility] 04-15-2024 11:25-0500 Systolic blood pressure 120 mm[Hg] Jey Johnson MD Work Phone: [facility] 04-14-2024 16:19-0500 Body mass index (BMI) [Ratio] 46.17 kg/m2 Lincoln Balderas MD Work Phone: [facility] 04-14-2024 16:19-0500 Body temperature 98.49 [degF] Lincoln Balderas MD Work Phone: [facility] 04-14-2024 16:19-0500 Body weight 133.7 kg Lincoln Balderas MD Work Phone: [facility] 04-14-2024 16:19-0500 Diastolic blood pressure 98 mm[Hg] Lincoln Balderas MD Work Phone: [facility] 04-14-2024 16:19-0500 Heart rate 76 /min Lincoln Balderas MD Work Phone: [facility] 04-14-2024 16:19-0500 Respiratory rate 18 /min Lincoln Balderas MD Work Phone: [facility] 04-14-2024 16:19-0500 SaO2% (BldA) [Mass fraction] 97 % Lincoln Balderas MD Work Phone: [facility] 04-14-2024 16:19-0500 Systolic blood pressure 142 mm[Hg] Lincoln Balderas MD Work Phone: [facility] 01-25-2024 12:44-0500 Body mass index (BMI) [Ratio] 46.61 kg/m2 Louis Schmidt APRN.FINISHING AREA SUPERVISOR Work Phone: [facility] 01-25-2024 12:44-0500 Body temperature 98.6 [degF] Louis Schmidt APRN.FINISHING AREA SUPERVISOR Work Phone: [facility] 01-25-2024 12:44-0500 Body weight 135 kg Louis Schmidt APRN.FINISHING AREA SUPERVISOR Work Phone: [facility] 01-25-2024 12:44-0500 Diastolic blood pressure 90 mm[Hg] Louis Schmidt APRN.FINISHING AREA SUPERVISOR Work Phone: [facility] 01-25-2024 12:44-0500 Heart rate 69 /min Louis Schmidt APRN.FINISHING AREA SUPERVISOR Work Phone: [facility] 01-25-2024 12:44-0500 Respiratory rate 20 /min Louis Schmidt APRN.FINISHING AREA SUPERVISOR Work Phone: [facility] 01-25-2024 12:44-0500 SaO2% (BldA) [Mass fraction] 100 % Louis Schmidt APRN.FINISHING AREA SUPERVISOR Work Phone: [facility] 01-25-2024 12:44-0500 Systolic blood pressure 132 mm[Hg] Louis Schmidt APRN.FINISHING AREA SUPERVISOR Work Phone: [facility] 01-24-2024 13:52-0500 Body mass index (BMI) [Ratio] 46.61 kg/m2 Krislyn Aberegg PA Work Phone: [facility] 01-24-2024 13:52-0500 Body temperature 97.9 [degF] Krislyn Aberegg PA Work Phone: [facility] 01-24-2024 13:52-0500 Body weight 135 kg Krislyn Aberegg PA Work Phone: [facility] 01-24-2024 13:52-0500 Diastolic blood pressure 82 mm[Hg] Krislyn Aberegg PA Work Phone: [facility] 01-24-2024 13:52-0500 Heart rate 73 /min Krislyn Aberegg PA Work Phone: [facility] 01-24-2024 13:52-0500 Respiratory rate 20 /min Krislyn Aberegg PA Work Phone: [facility] 01-24-2024 13:52-0500 SaO2% (BldA) [Mass fraction] 98 % Krislyn Aberegg PA Work Phone: [facility] 01-24-2024 13:52-0500 Systolic blood pressure 128 mm[Hg] Krislyn Aberegg PA Work Phone: [facility] 01-14-2024 14:31-0500 Body height 167.64 cm Naina Da Silva MIXER HELPER-C Work Phone: [facility] 01-14-2024 14:31-0500 Body mass index (BMI) [Ratio] 47.4 kg/m2 Naina Da Silva MIXER HELPER-C Work Phone: [facility] 01-14-2024 14:31-0500 Body weight 133.35 kg Naina Da Silva MIXER HELPER-C Work Phone: [facility] 01-14-2024 14:31-0500 Diastolic blood pressure 78 mm[Hg] Naina Da Silva MIXER HELPER-C Work Phone: [facility] 01-14-2024 14:31-0500 Heart rate 93 /min Naina Da Silva MIXER HELPER-C Work Phone: [facility] 01-14-2024 14:31-0500 Respiratory rate 18 /min Naina Da Silva MIXER HELPER-C Work Phone: [facility] 01-14-2024 14:31-0500 SaO2% (BldA) [Mass fraction] 96 % Naina Da Silav MIXER HELPER-C Work Phone: [facility] 01-14-2024 14:31-0500 Systolic blood pressure 127 mm[Hg] Naina Da Silva MIXER HELPER-C Work Phone: [facility] 01-08-2024 11:52-0500 Body height 170.2 cm Jey Johnson MD Work Phone: [facility] 01-08-2024 11:52-0500 Body mass index (BMI) [Ratio] 46.05 kg/m2 Jey Johnson MD Work Phone: [facility] 01-08-2024 11:52-0500 Body weight 133.36 kg Jey Johnson MD Work Phone: [facility] 01-08-2024 11:52-0500 Diastolic blood pressure 76 mm[Hg] Jey Johnson MD Work Phone: [facility] 01-08-2024 11:52-0500 Heart rate 72 /min Jey Johnson MD Work Phone: [facility] 01-08-2024 11:52-0500 Respiratory rate 21 /min Jey Johnson MD Work Phone: [facility] 01-08-2024 11:52-0500 SaO2% (BldA) [Mass fraction] 100 % Jey Johnson MD Work Phone: [facility] 01-08-2024 11:52-0500 Systolic blood pressure 122 mm[Hg] Jey Johnson MD Work Phone: [facility] 12-31-2023 13:55-0500 Body height 170.2 cm Alisson Coatst MIXER HELPER Work Phone: [facility] 12-31-2023 13:55-0500 Body mass index (BMI) [Ratio] 46.36 kg/m2 Alisson Lucianoandt MIXER HELPER Work Phone: [facility] 12-31-2023 13:55-0500 Body weight 134.26 kg Alisson Lucianoandt MIXER HELPER Work Phone: [facility] 12-31-2023 13:55-0500 Diastolic blood pressure 86 mm[Hg] Alisson Lucianoandt MIXER HELPER Work Phone: [facility] 12-31-2023 13:55-0500 Heart rate 75 /min Alisson Lucianoandt MIXER HELPER Work Phone: [facility] 12-31-2023 13:55-0500 SaO2% (BldA) [Mass fraction] 99 % Alisson Wolfandt MIXER HELPER Work Phone: [facility] 12-31-2023 13:55-0500 Systolic blood pressure 124 mm[Hg] Alisson Wolfandt MIXER HELPER Work Phone: [facility] 10-26-2023 15:23-0400 Body height 170.2 cm Jey Johnson MD Work Phone: [facility] 10-26-2023 15:23-0400 Body mass index (BMI) [Ratio] 43.92 kg/m2 Jey Johnson MD Work Phone: [facility] 10-26-2023 15:23-0400 Body temperature 97.9 [degF] Jey Johnson MD Work Phone: [facility] 10-26-2023 15:23-0400 Body weight 127.19 kg Jey Johnson MD Work Phone: [facility] 10-26-2023 15:23-0400 Heart rate 61 /min Jey Johnson MD Work Phone: [facility] 10-26-2023 15:23-0400 SaO2% (BldA) [Mass fraction] 99 % Jey Johnson MD Work Phone: [facility] 09-13-2023 16:21-0400 Body temperature 98.91 [degF] Lincoln Balderas MD Work Phone: [facility] 09-13-2023 16:21-0400 Body weight 135.5 kg Lincoln Balderas MD Work Phone: [facility] 09-13-2023 16:21-0400 Diastolic blood pressure 68 mm[Hg] Lincoln Balderas MD Work Phone: [facility] 09-13-2023 16:21-0400 Heart rate 85 /min Lincoln Balderas MD Work Phone: [facility] 09-13-2023 16:21-0400 Respiratory rate 20 /min Lincoln Balderas MD Work Phone: [facility] 09-13-2023 16:21-0400 SaO2% (BldA) [Mass fraction] 95 % Lincoln Balderas MD Work Phone: [facility] 09-13-2023 16:21-0400 Systolic blood pressure 104 mm[Hg] Lincoln Balderas MD Work Phone: [facility] 06-03-2023 22:04-0400 Body temperature 97 [degF] [facility] Work Phone: [facility] 06-03-2023 22:04-0400 Diastolic blood pressure 72 mm[Hg] [facility] Work Phone: [facility] 06-03-2023 22:04-0400 Heart rate 102 /min [facility] Work Phone: [facility] 06-03-2023 22:04-0400 Respiratory rate 16 /min [facility] Work Phone: 5(942)130-939284 [place] [address] 06-03-2023 22:04-0400 SaO2% (BldA) [Mass fraction] 96 % [facility] Work Phone: 0(598)304-192684 [place] [address] 06-03-2023 22:04-0400 Systolic blood pressure 120 mm[Hg] [facility] Work Phone: 0(730)973-382184 [place] [address] 06-03-2023 20:26-0400 Body height 167.64 cm [facility] Work Phone: 3(625)308-823284 [place] [address] 06-03-2023 20:26-0400 Body mass index (BMI) [Ratio] 47.7 kg/m2 [facility] Work Phone: 4(921)475-020984 [place] [address] 06-03-2023 20:26-0400 Body weight 134.03 kg [facility] Work Phone: 7(504)574-969184 [place] [address] 05-08-2023 16:48-0400 Body temperature 97.4 [degF] [facility] Work Phone: 7(431)799-423884 [place] [address] 05-08-2023 16:48-0400 Diastolic blood pressure 69 mm[Hg] [facility] Work Phone: 2(145)483-541984 [place] [address] 05-08-2023 16:48-0400 Heart rate 91 /min [facility] Work Phone: 4(583)212-486584 [place] [address] 05-08-2023 16:48-0400 Respiratory rate 18 /min [facility] Work Phone: 5(849)940-200284 [place] [address] 05-08-2023 16:48-0400 SaO2% (BldA) [Mass fraction] 98 % [facility] Work Phone: 0(981)245-943484 [place] [address] 05-08-2023 16:48-0400 Systolic blood pressure 114 mm[Hg] [facility] Work Phone: 2(012)168-709084 [place] [address] 05-08-2023 14:46-0400 Body height 167.64 cm [facility] Work Phone: 6(597)381-095284 [place] [address] 05-08-2023 14:46-0400 Body mass index (BMI) [Ratio] 45.3 kg/m2 [facility] Work Phone: 4(976)296-151284 [place] [address] 05-08-2023 14:46-0400 Body weight 127.5 kg [facility] Work Phone: 2(251)196-964584 [place] [address] 04-08-2023 06:21-0500 Body temperature 98 [degF] [facility] Work Phone: 5(712)192-092284 [place] [address] 04-08-2023 06:21-0500 Diastolic blood pressure 74 mm[Hg] [facility] Work Phone: 7(467)939-767384 [place] [address] 04-08-2023 06:21-0500 Heart rate 94 /min [facility] Work Phone: 3(132)227-023584 [place] [address] 04-08-2023 06:21-0500 Respiratory rate 18 /min [facility] Work Phone: 6(045)038-635484 [place] [address] 04-08-2023 06:21-0500 SaO2% (BldA) [Mass fraction] 99 % [facility] Work Phone: 2(542)571-177784 [place] [address] 04-08-2023 06:21-0500 Systolic blood pressure 143 mm[Hg] [facility] Work Phone: 0(135)730-451984 [place] [address] 04-07-2023 16:02-0500 Body height 167.64 cm [facility] Work Phone: 4(892)192-647984 [place] [address] 04-07-2023 16:02-0500 Body mass index (BMI) [Ratio] 47.3 kg/m2 [facility] Work Phone: 2(855)220-543984 [place] [address] 04-07-2023 16:02-0500 Body weight 133 kg [facility] Work Phone: 2(963)034-845584 [place] [address] 03-20-2023 08:20-0500 Body mass index (BMI) [Ratio] 47 kg/m2 [facility] Work Phone: 0(501)719-490784 [place] [address] 03-20-2023 08:20-0500 Body temperature 98.6 [degF] [facility] Work Phone: 8(307)985-521684 [place] [address] 03-20-2023 08:20-0500 Body weight 131.99 kg [facility] Work Phone: 4(417)851-077184 [place] [address] 03-20-2023 08:20-0500 Diastolic blood pressure 76 mm[Hg] [facility] Work Phone: 2(566)616-285184 [place] [address] 03-20-2023 08:20-0500 Heart rate 80 /min [facility] Work Phone: 0(607)065-368284 [place] [address] 03-20-2023 08:20-0500 Respiratory rate 18 /min [facility] Work Phone: 9(834)954-285084 [place] [address] 03-20-2023 08:20-0500 SaO2% (BldA) [Mass fraction] 97 % [facility] Work Phone: 3(922)898-216584 [place] [address] 03-20-2023 08:20-0500 Systolic blood pressure 112 mm[Hg] [facility] Work Phone: 8(886)841-658184 [place] [address] 12-20-2022 11:29-0400 Body temperature 98.1 [degF] [facility] Work Phone: 9(073)085-375184 [place] [address] 12-20-2022 11:29-0400 Diastolic blood pressure 83 mm[Hg] [facility] Work Phone: 7(358)599-479084 [place] [address] 12-20-2022 11:29-0400 Heart rate 85 /min [facility] Work Phone: 6(466)578-963784 [place] [address] 12-20-2022 11:29-0400 Respiratory rate 12 /min [facility] Work Phone: 2(858)994-885484 [place] [address] 12-20-2022 11:29-0400 SaO2% (BldA) [Mass fraction] 100 % [facility] Work Phone: 7(022)684-310984 [place] [address] 12-20-2022 11:29-0400 Systolic blood pressure 129 mm[Hg] [facility] Work Phone: 7(201)143-810584 [place] [address] 12-18-2022 19:24-0400 Body height 167.64 cm [facility] Work Phone: 1(930)144-681084 [place] [address] 12-18-2022 19:24-0400 Body mass index (BMI) [Ratio] 45.9 kg/m2 [facility] Work Phone: 1(693)232-218084 [place] [address] 12-18-2022 19:24-0400 Body weight 129.1 kg [facility] Work Phone: 6(285)884-752884 [place] [address] 12-18-2022 17:03-0400 Body mass index (BMI) [Ratio] 47.5 kg/m2 [facility] Work Phone: 5(381)630-479984 [place] [address] 12-18-2022 17:03-0400 Body weight 133.4 kg [facility] Work Phone: 2(892)404-321984 [place] [address] 12-18-2022 17:02-0400 Diastolic blood pressure 89 mm[Hg] [facility] Work Phone: 2(652)176-608784 [place] [address] 12-18-2022 17:02-0400 Heart rate 93 /min [facility] Work Phone: 8(131)923-017384 [place] [address] 12-18-2022 17:02-0400 Respiratory rate 17 /min [facility] Work Phone: 0(295)516-699884 [place] [address] 12-18-2022 17:02-0400 SaO2% (BldA) [Mass fraction] 99 % [facility] Work Phone: 4(409)760-317684 [place] [address] 12-18-2022 17:02-0400 Systolic blood pressure 130 mm[Hg] [facility] Work Phone: 1(039)430-882784 [place] [address] 12-18-2022 12:28-0400 Body height 167.64 cm [facility] Work Phone: 2(838)808-957984 [place] [address] 12-18-2022 12:28-0400 Body temperature 97.1 [degF] [facility] Work Phone: 6(734)160-890484 [place] [address] 12-09-2022 20:10-0400 Body temperature 97.8 [degF] [facility] Work Phone: 1(121)344-010184 [place] [address] 12-09-2022 19:31-0400 Body height 170.18 cm [facility] Work Phone: 2(904)195-848784 [place] [address] 12-09-2022 19:31-0400 Body mass index (BMI) [Ratio] 42.9 kg/m2 [facility] Work Phone: 5(104)540-226784 [place] [address] 12-09-2022 19:31-0400 Body weight 124.28 kg [facility] Work Phone: 4(424)856-554684 [place] [address] 12-09-2022 19:31-0400 Diastolic blood pressure 78 mm[Hg] [facility] Work Phone: 9(149)086-878884 [place] [address] 12-09-2022 19:31-0400 Heart rate 98 /min [facility] Work Phone: 7(584)163-747384 [place] [address] 12-09-2022 19:31-0400 Respiratory rate 15 /min [facility] Work Phone: 1(988)195-753184 [place] [address] 12-09-2022 19:31-0400 SaO2% (BldA) [Mass fraction] 100 % [facility] Work Phone: 8(277)821-018784 [place] [address] 12-09-2022 19:31-0400 Systolic blood pressure 130 mm[Hg] [facility] Work Phone: 1(557)928-473384 [place] [address] 11-23-2022 00:02-0400 Body height 167.64 cm [facility] Work Phone: 3(493)109-194184 [place] [address] 11-23-2022 00:02-0400 Body mass index (BMI) [Ratio] 44.4 kg/m2 [facility] Work Phone: 8(571)960-812184 [place] [address] 11-23-2022 00:02-0400 Body weight 125 kg [facility] Work Phone: 8(591)258-831884 [place] [address] 11-22-2022 22:15-0400 Diastolic blood pressure 65 mm[Hg] [facility] Work Phone: 4(891)451-891484 [place] [address] 11-22-2022 22:15-0400 Heart rate 66 /min [facility] Work Phone: 5(573)310-006084 [place] [address] 11-22-2022 22:15-0400 Respiratory rate 18 /min [facility] Work Phone: 0(675)052-187584 [place] [address] 11-22-2022 22:15-0400 SaO2% (BldA) [Mass fraction] 99 % [facility] Work Phone: 7(093)253-081084 [place] [address] 11-22-2022 22:15-0400 Systolic blood pressure 133 mm[Hg] [facility] Work Phone: 7(136)789-682184 [place] [address] 11-22-2022 20:15-0400 Body temperature 97.7 [degF] [facility] Work Phone: 4(537)640-041484 [place] [address] 10-03-2022 08:43-0400 Body height 168.91 cm [facility] Work Phone: 2(066)385-107684 [place] [address] 10-03-2022 08:33-0400 Body mass index (BMI) [Ratio] 47.2 kg/m2 [facility] Work Phone: 6(397)115-121984 [place] [address] 10-03-2022 08:33-0400 Body weight 134.77 kg [facility] Work Phone: 7(471)242-385884 [place] [address] 10-03-2022 08:33-0400 Diastolic blood pressure 76 mm[Hg] [facility] Work Phone: 8(715)725-223584 [place] [address] 10-03-2022 08:33-0400 Systolic blood pressure 124 mm[Hg] [facility] Work Phone: 8(930)870-418284 [place] [address] 09-19-2022 14:44-0400 Diastolic blood pressure 70 mm[Hg] [facility] Work Phone: 7(914)231-967684 [place] [address] 09-19-2022 14:44-0400 Heart rate 107 /min [facility] Work Phone: 8(599)181-681984 [place] [address] 09-19-2022 14:44-0400 Respiratory rate 18 /min [facility] Work Phone: 5(772)447-375284 [place] [address] 09-19-2022 14:44-0400 SaO2% (BldA) [Mass fraction] 98 % [facility] Work Phone: 3(190)785-904584 [place] [address] 09-19-2022 14:44-0400 Systolic blood pressure 142 mm[Hg] [facility] Work Phone: 5(062)111-933684 [place] [address] 09-19-2022 13:10-0400 Body mass index (BMI) [Ratio] 47.3 kg/m2 [facility] Work Phone: 2(522)863-207084 [place] [address] 09-19-2022 13:10-0400 Body weight 135.17 kg [facility] Work Phone: 2(145)916-049984 [place] [address] 08-15-2022 22:13-0400 Diastolic blood pressure 76 mm[Hg] [facility] Work Phone: 4(750)888-683084 [place] [address] 08-15-2022 22:13-0400 Heart rate 80 /min [facility] Work Phone: 4(191)810-457884 [place] [address] 08-15-2022 22:13-0400 Respiratory rate 18 /min [facility] Work Phone: 9(688)200-596384 [place] [address] 08-15-2022 22:13-0400 Systolic blood pressure 128 mm[Hg] [facility] Work Phone: 8(311)273-979284 [place] [address] 08-15-2022 19:01-0400 Body height 170.18 cm [facility] Work Phone: 4(662)299-682984 [place] [address] 08-15-2022 19:01-0400 Body mass index (BMI) [Ratio] 46.5 kg/m2 [facility] Work Phone: 1(344)180-211884 [place] [address] 08-15-2022 19:01-0400 Body temperature 98.2 [degF] [facility] Work Phone: 4(404)017-323084 [place] [address] 08-15-2022 19:01-0400 Body weight 134.76 kg [facility] Work Phone: 6(899)181-537284 [place] [address] 08-15-2022 19:01-0400 SaO2% (BldA) [Mass fraction] 100 % [facility] Work Phone: 3(476)978-417984 [place] [address] 08-08-2022 15:25-0400 Body temperature 98 [degF] [facility] Work Phone: 7(819)915-774184 [place] [address] 08-08-2022 15:25-0400 Diastolic blood pressure 67 mm[Hg] [facility] Work Phone: 3(656)612-052184 [place] [address] 08-08-2022 15:25-0400 Heart rate 83 /min [facility] Work Phone: 1(583)189-934284 [place] [address] 08-08-2022 15:25-0400 Respiratory rate 16 /min [facility] Work Phone: 2(103)886-607284 [place] [address] 08-08-2022 15:25-0400 SaO2% (BldA) [Mass fraction] 100 % [facility] Work Phone: 7(697)764-572384 [place] [address] 08-08-2022 15:25-0400 Systolic blood pressure 118 mm[Hg] [facility] Work Phone: 8(899)347-068284 [place] [address] 08-08-2022 12:47-0400 Body height 170.18 cm [facility] Work Phone: 9(603)449-063784 [place] [address] 08-08-2022 12:47-0400 Body mass index (BMI) [Ratio] 46.4 kg/m2 [facility] Work Phone: 2(415)055-498584 [place] [address] 08-08-2022 12:47-0400 Body weight 134.5 kg [facility] Work Phone: 1(907)096-036684 [place] [address] 02-28-2022 09:11-0500 Body height 170.18 cm [facility] Work Phone: 8(872)772-478884 [place] [address] 02-28-2022 08:59-0500 Body mass index (BMI) [Ratio] 45.6 kg/m2 [facility] Work Phone: 5(089)321-712784 [place] [address] 02-28-2022 08:59-0500 Body weight 132.16 kg [facility] Work Phone: 7(113)878-853384 [place] [address] 02-28-2022 08:59-0500 Diastolic blood pressure 72 mm[Hg] [facility] Work Phone: 3(206)253-866884 [place] [address] 02-28-2022 08:59-0500 Systolic blood pressure 120 mm[Hg] [facility] Work Phone: 4(215)623-771784 [place] [address] 01-24-2022 23:05-0500 Diastolic blood pressure 68 mm[Hg] [facility] Work Phone: 7(906)291-119484 [place] [address] 01-24-2022 23:05-0500 Heart rate 84 /min [facility] Work Phone: 7(976)390-108384 [place] [address] 01-24-2022 23:05-0500 Respiratory rate 17 /min [facility] Work Phone: 3(784)502-440684 [place] [address] 01-24-2022 23:05-0500 SaO2% (BldA) [Mass fraction] 95 % [facility] Work Phone: 5(660)131-729084 [place] [address] 01-24-2022 23:05-0500 Systolic blood pressure 117 mm[Hg] [facility] Work Phone: 3(209)926-868184 [place] [address] 01-24-2022 16:45-0500 Body height 170.18 cm [facility] Work Phone: 7(658)970-177684 [place] [address] Work Phone: 01-24-2022 16:45-0500 Body mass index (BMI) [Ratio] 45.6 kg/m2 [facility] Work Phone: 6(416)251-742884 [place] [address] 01-24-2022 16:45-0500 Body temperature 99 [degF] [facility] Work Phone: 0(913)007-777884 [place] [address] 01-24-2022 16:45-0500 Body weight 131.99 kg [facility] Work Phone: 5(876)254-391584 [place] [address] 01-15-2022 15:27-0500 Diastolic blood pressure 80 mm[Hg] [facility] Work Phone: 4(970)653-316084 [place] [address] 01-15-2022 15:27-0500 Heart rate 100 /min [facility] Work Phone: 4(842)986-670584 [place] [address] 01-15-2022 15:27-0500 Respiratory rate 17 /min [facility] Work Phone: 9(575)302-488184 [place] [address] 01-15-2022 15:27-0500 SaO2% (BldA) [Mass fraction] 97 % [facility] Work Phone: 2(482)031-073584 [place] [address] 01-15-2022 15:27-0500 Systolic blood pressure 124 mm[Hg] [facility] Work Phone: 3(005)524-681984 [place] [address] 01-15-2022 12:14-0500 Body mass index (BMI) [Ratio] 45.4 kg/m2 [facility] Work Phone: [facility] 01-15-2022 12:14-0500 Body temperature 98.2 [degF] [facility] Work Phone: [facility] 01-15-2022 12:14-0500 Body weight 131.54 kg [facility] Work Phone: [facility] 12-12-2021 16:21-0400 Body temperature 99 [degF] Lincoln Balderas MD Work Phone: [facility] 12-12-2021 16:21-0400 Body weight 130.64 kg Lincoln Balderas MD Work Phone: [facility] 12-12-2021 16:21-0400 Diastolic blood pressure 78 mm[Hg] Lincoln Balderas MD Work Phone: [facility] 12-12-2021 16:21-0400 Heart rate 120 /min Lincoln Balderas MD Work Phone: [facility] 12-12-2021 16:21-0400 Respiratory rate 18 /min Lincoln Balderas MD Work Phone: [facility] 12-12-2021 16:21-0400 SaO2% (BldA) [Mass fraction] 99 % Lincoln Balderas MD Work Phone: [facility] 12-12-2021 16:21-0400 Systolic blood pressure 118 mm[Hg] Lincoln Balderas MD Work Phone: [facility] 09-28-2021 09:12-0400 Body height 170.18 cm [facility] Work Phone: [facility] Work Phone: 09-28-2021 09:11-0400 Body mass index (BMI) [Ratio] 43.8 kg/m2 [facility] Work Phone: [facility] Work Phone: 09-28-2021 09:11-0400 Body weight 127 kg [facility] Work Phone: [facility] Work Phone: 09-28-2021 09:11-0400 Diastolic blood pressure 80 mm[Hg] [facility] Work Phone: [facility] Work Phone: 09-28-2021 09:11-0400 Systolic blood pressure 110 mm[Hg] [facility] Work Phone: [facility] Work Phone: 09-10-2021 12:35-0400 Diastolic blood pressure 75 mm[Hg] [facility] Work Phone: [facility] Work Phone: 09-10-2021 12:35-0400 Heart rate 82 /min [facility] Work Phone: [facility] Work Phone: 09-10-2021 12:35-0400 Respiratory rate 15 /min [facility] Work Phone: [facility] Work Phone: 09-10-2021 12:35-0400 SaO2% (BldA) [Mass fraction] 98 % [facility] Work Phone: [facility] Work Phone: 09-10-2021 12:35-0400 Systolic blood pressure 146 mm[Hg] [facility] Work Phone: [facility] Work Phone: 09-10-2021 09:41-0400 Body temperature 98.9 [degF] [facility] Work Phone: [facility] Work Phone: 09-10-2021 02:42-0400 Body height 170.18 cm [facility] Work Phone: [facility] Work Phone: 09-10-2021 02:42-0400 Body mass index (BMI) [Ratio] 42.9 kg/m2 [facility] Work Phone: [facility] Work Phone: 09-10-2021 02:42-0400 Body weight 124.31 kg [facility] Work Phone: [facility] Work Phone: 09-03-2021 10:52-0400 Body height 170.18 cm [facility] Work Phone: [facility] Work Phone: 09-03-2021 10:52-0400 Body mass index (BMI) [Ratio] 42.3 kg/m2 [facility] Work Phone: [facility] Work Phone: 09-03-2021 10:52-0400 Body temperature 97.9 [degF] [facility] Work Phone: [facility] Work Phone: 09-03-2021 10:52-0400 Body weight 122.46 kg [facility] Work Phone: [facility] Work Phone: 09-03-2021 10:52-0400 Diastolic blood pressure 80 mm[Hg] [facility] Work Phone: [facility] Work Phone: 09-03-2021 10:52-0400 Heart rate 73 /min [facility] Work Phone: [facility] Work Phone: 09-03-2021 10:52-0400 Respiratory rate 16 /min [facility] Work Phone: [facility] Work Phone: 09-03-2021 10:52-0400 SaO2% (BldA) [Mass fraction] 97 % [facility] Work Phone: [facility] Work Phone: 09-03-2021 10:52-0400 Systolic blood pressure 116 mm[Hg] [facility] Work Phone: [facility] Work Phone: 08-29-2021 22:32-0400 Diastolic blood pressure 74 mm[Hg] [facility] Work Phone: [facility] Work Phone: 08-29-2021 22:32-0400 Heart rate 102 /min [facility] Work Phone: [facility] Work Phone: 08-29-2021 22:32-0400 Respiratory rate 15 /min [facility] Work Phone: [facility] Work Phone: 08-29-2021 22:32-0400 SaO2% (BldA) [Mass fraction] 99 % [facility] Work Phone: [facility] Work Phone: 08-29-2021 22:32-0400 Systolic blood pressure 135 mm[Hg] [facility] Work Phone: [facility] Work Phone: 08-29-2021 18:19-0400 Body height 170.18 cm [facility] Work Phone: [facility] Work Phone: 08-29-2021 18:19-0400 Body mass index (BMI) [Ratio] 44.9 kg/m2 [facility] Work Phone: [facility] Work Phone: 08-29-2021 18:19-0400 Body temperature 98.3 [degF] [facility] Work Phone: [facility] Work Phone: 08-29-2021 18:19-0400 Body weight 130.18 kg [facility] Work Phone: [facility] Work Phone: 08-16-2021 19:45-0400 Body height 170.18 cm [facility] Work Phone: [facility] Work Phone: 08-16-2021 19:45-0400 Body mass index (BMI) [Ratio] 44.6 kg/m2 [facility] Work Phone: [facility] Work Phone: 08-16-2021 19:45-0400 Body temperature 98 [degF] [facility] Work Phone: [facility] Work Phone: 08-16-2021 19:45-0400 Body weight 129.3 kg [facility] Work Phone: [facility] Work Phone: 08-16-2021 19:45-0400 Diastolic blood pressure 86 mm[Hg] [facility] Work Phone: [facility] Work Phone: 08-16-2021 19:45-0400 Heart rate 98 /min [facility] Work Phone: [facility] Work Phone: 08-16-2021 19:45-0400 Respiratory rate 14 /min [facility] Work Phone: [facility] Work Phone: 08-16-2021 19:45-0400 SaO2% (BldA) [Mass fraction] 95 % [facility] Work Phone: [facility] Work Phone: 08-16-2021 19:45-0400 Systolic blood pressure 178 mm[Hg] [facility] Work Phone: [facility] Work Phone: 08-08-2021 08:10-0400 Body mass index (BMI) [Ratio] 44.5 kg/m2 [facility] Work Phone: [facility] Work Phone: 08-08-2021 08:10-0400 Body weight 129.04 kg [facility] Work Phone: [facility] Work Phone: 08-08-2021 08:10-0400 Diastolic blood pressure 86 mm[Hg] [facility] Work Phone: [facility] Work Phone: 08-08-2021 08:10-0400 Systolic blood pressure 138 mm[Hg] [facility] Work Phone: [facility] Work Phone: 12-14-2020 20:47-0400 Heart rate 76 /min ERNESTO FROMMELT DO [facility] 12-14-2020 20:47-0400 Respiratory rate 18 /min ERNESTO FROMMELT DO [facility] 12-14-2020 18:35-0400 Body temperature 98.42 [degF] ERNESTO FROMMELT DO [facility] 12-14-2020 18:35-0400 Body weight 118.2 kg ERNESTO FROMMELT DO [facility] 12-14-2020 18:35-0400 Diastolic blood pressure 84 mm[Hg] ERNESTO FROMMELT DO [facility] 12-14-2020 18:35-0400 Heart rate 78 /min ERNESTO FROMMELT DO [facility] 12-14-2020 18:35-0400 Respiratory rate 18 /min ERNESTO FROMMELT DO [facility] 12-14-2020 18:35-0400 Systolic blood pressure 139 mm[Hg] ERNESTO FROMMELT DO [facility] Encounters Encounter Date Encounter Type Care Provider Facility Start: 09-25-2024 End: 09-25-2024 Patient encounter procedure Andreas Oliva DO -[facility] Work Phone: Start: 09-25-2024 End: 09-25-2024 ambulatory Naina Da Silva [employer] Work Phone: -[facility] Start: 09-21-2024 End: 09-21-2024 Emergency department patient visit Naina Da Silva [employer] Work Phone: -Emergency Department Work Phone: Start: 09-19-2024 End: 09-22-2024 Refill Jey Johnson MD Work Phone: Endocrinology Comment on above: Refill Request Start: 09-18-2024 End: 09-18-2024 Telephone encounter Arsenio VAZQUEZW Endocrinology Start: 09-04-2024 End: 09-04-2024 Naina Avinash [employer]C Work Phone: -Emergency Department Work Phone: Start: 09-04-2024 End: 09-04-2024 Emergency department patient visit Naina Da Silva [employer]C Work Phone: -Emergency Department Start: 09-02-2024 End: 09-02-2024 ambulatory Naina aD Silva [employer]C Work Phone: -[facility] Start: 09-02-2024 End: 09-02-2024 Patient encounter procedure [facility] Naina Avinash [employer]C -[facility] Start: 09-02-2024 [facility]SC Naina santiago [employer]C -[facility] Start: 09-02-2024 End: 09-02-2024 ambulatory Karuna Lim VSC Facility:[facility] Start: 08-28-2024 End: 08-28-2024 Telephone encounter Arsenio VAZQUEZW Endocrinology Comment on above: Ambulatory Social Wo rk Start: 08-26-2024 End: 08-26-2024 ambulatory Maria Elena Savage Clinical Informatics Strategist Work Phone: Endocrinology Start: 08-07-2024 End: 08-07-2024 ambulatory Naina CROWDERC Work Phone: [facility] Work Phone: Start: 08-07-2024 End: 08-07-2024 Patient encounter procedure Andreas Oliva DO -[facility] Work Phone: Start: 08-07-2024 End: 08-07-2024 Andreas Friend DO -[facility] Work Phone: Start: 08-07-2024 End: 08-07-2024 ambulatory Zebulun Beam VSC Facility:[facility] Start: 08-01-2024 End: 08-01-2024 [facility] Laura Carson PhD Work Phone: Endocrinology Comment on above: Obesity, Class III, BMI 40-49.9 (morbid obesity) (HCC) (Primary Dx); Binge eating disorder, moderate; Bipolar affective disorder, currently depressed, mild (HCC); Generalized anxiety disorder Start: 07-24-2024 End: 07-24-2024 Patient encounter procedure Shawanda BAZAN -[facility] Work Phone: Start: 07-24-2024 End: 07-24-2024 Shawanda BAZAN -[facility] Work Phone: Start: 07-24-2024 End: 07-24-2024 ambulatory Naina CROWDERC Work Phone: [facility] Work Phone: Start: 07-15-2024 End: 07-15-2024 Patient encounter procedure Jey Johnson MD Work Phone: Endocrinology Comment on above: PCOS (polycystic ova sivakumar syndrome) [E28.2] (Primary Dx) Start: 07-15-2024 End: 07-15-2024 ambulatory JEY JOHNSON Facility:[facility] Start: 07-08-2024 End: 07-08-2024 Patient encounter procedure Andreas Oliva DO -[facility] Work Phone: Start: 07-08-2024 End: 07-08-2024 Andreasmoreno Oliva DO -[facility] Work Phone: Start: 07-08-2024 End: 07-08-2024 ambulatory Naina Da Silva MIXER HELPER-C Work Phone: [facility] Work Phone: Start: 06-24-2024 End: 06-27-2024 Refill Jey Johnson MD Work Phone: Endocrinology Comment on above: Refill Request Start: 06-20-2024 Non-patient / Non-visit Dr. Ozzy Greco MD -[facility] Start: 06-20-2024 End: 06-20-2024 ambulatory Naina Da Silva MIXER HELPER-C Work Phone: [facility] Work Phone: Start: 06-20-2024 End: 06-20-2024 Patient encounter procedure Shawanda Ramires MIXER HELPER-C -Cardiovascular Services Work Phone: Start: 06-20-2024 End: 06-20-2024 Dr. Ozzy Greco MD -[facility] Start: 06-20-2024 End: 06-20-2024 ambulatory Zebulun Beam VSC Facility:[facility] Start: 06-10-2024 Patient encounter status Naina Da Silva MIXER HELPER-C Work Phone: [facility] Start: 06-10-2024 End: 06-10-2024 Patient encounter procedure Zebulun Beam MIXER HELPER-C -Laboratory, [facility] Start: 06-10-2024 End: 06-10-2024 Zebulun Beam MIXER HELPER-C -Laboratory Daniel Tierney Start: 06-10-2024 End: 06-10-2024 ambulatory Zebulun Beam VSC Facility:[facility] Start: 06-05-2024 Non-patient / Non-visit Dr. Marco Bartlett MD -[facility] Work Phone: Start: 06-05-2024 ambulatory Zebulun Beam VSC Facili ty:[facility] Start: 06-05-2024 Registered Referred Shawanda Ramires MIXER HELPER -C -Cardiovascular Services Work Phone: Start: 06-05-2024 Dr. Marco Bartlett MD - [facility] Work Phone: Start: 06-03-2024 End: 06-03-2024 Dr. Jaylon Galicia MD -Emergency Departm ent Work Phone: Start: 06-03-2024 End: 06-03-2024 Emergency department patient visit Naina Avinash MIXER HELPER-C Work Phone: -Emergency Department Work Phone: Start: 06-03-2024 End: 06-03-2024 ambulatory Naina Avinash MIXER HELPER-C Work Phone: [facility] Work Phone: Start: 06-03-2024 End: 06-03-2024 Patient encounter procedure Zebulun Beam MIXER HELPER-C -[facility] Work Phone: Start: 06-03-2024 End: 06-03-2024 Zebulun Beam MIXER HELPER-C -[facility] Work Phone: Start: 06-02-2024 End: 06-02-2024 ED PHYSICIAN PROVIDER -Emergency Departm ent Work Phone: Start: 06-02-2024 End: 06-02-2024 Emergency department patient visit Naina Avinash MIXER HELPER-C Work Phone: -Emergency Department Work Phone: Start: 06-02-2024 End: 06-03-2024 [facility] Laura Carson PhD Work Phone: Endocrinology Comment on above: Bipolar affective di sorder, currently depressed, mild (HCC) (Primary Dx); Obesity, Class III, BMI 40-49.9 (morbid obesity) (HCC); Binge eating disorder, moderate; Generalized anxiety disorder Start: 05-29-2024 End: 05-29-2024 Patient encounter procedure Shawanda Ramires MIXER HELPER-C -[facility] Work Phone: Start: 05-29-2024 End: 05-29-2024 Shawanda Ramires MIXER HELPER-C -[facility] Work Phone: Start: 05-29-2024 End: 05-29-2024 ambulatory Naina Da Silva VSC [facility] Start: 05-23-2024 End: 05-23-2024 ambulatory Naina Da Silva MIXER HELPER-C Work Phone: [facility] Work Phone: Start: 05-23-2024 End: 05-23-2024 Patient encounter procedure Karina Guerra MIXER HELPER-C -Laboratory Work Phone: Start: 05-23-2024 End: 05-23-2024 Karina Guerra MIXER HELPER-C -Laboratory Work Phone: Start: 05-23-2024 End: 05-23-2024 ambulatory Karina Guerra MIXER HELPER Facility:[facility] Start: 05-16-2024 End: 05-16-2024 [facility] Swapna STEVENSON, PhD Work Phone: Endocrinology [...] 05-14-2024 End: 05-15-2024 Emergency department patient visit Nainakourtney Da Silva MIXER HELPER-C Work Phone: -Emergency Department Work Phone: Start: 05-08-2024 End: 05-08-2024 Dr. Stan Lin DO -Emergency Departmen t Work Phone: Start: 05-08-2024 End: 05-08-2024 Emergency department patient visit Naina Da Silva MIXER HELPER-C Work Phone: -Emergency Department Work Phone: Start: 05-07-2024 End: 05-07-2024 ambulatory Naina Da Silva MIXER HELPER-C Work Phone: [facility] Work Phone: Start: 05-07-2024 End: 05-07-2024 Patient encounter procedure Zebulun Beam MIXER HELPER-C -Laboratory, [facility] Start: 05-07-2024 End: 05-07-2024 Zebulun Beam MIXER HELPER-C -Laboratory [facility] Start: 05-07-2024 End: 05-07-2024 ambulatory Zebulun Beam VSC Facility:[facility] Start: 04-22-2024 End: 04-22-2024 ambulatory Naina Da Silva MIXER HELPER-C Work Phone: [facility] Work Phone: Start: 04-22-2024 End: 04-22-2024 Patient encounter procedure Zebulun Beam MIXER HELPER-C -Laboratory, [facility] Start: 04-22-2024 End: 04-22-2024 ambulatory Zebulun Beam VSC Facility:[facility] Start: 04-15-2024 End: 04-15-2024 Follow-up encounter Maru HICKEY Work Phone: [facility] Start: 04-15-2024 End: 04-15-2024 ambulatory JEY JOHNSON Facility:[facility] Start: 04-15-2024 End: 04-15-2024 Patient encounter procedure Jey Johnson MD Work Phone: Endocrinology Comment on above: Obesity, Class III, BMI 40-49.9 (morbid obesity) (HCC) (Primary Dx); PCOS (polycystic ovarian syndrome) Start: 04-14-2024 End: 04-14-2024 ambulatory JEY JOHNSON Facility:[facility] Start: 04-14-2024 End: 04-14-2024 Office outpatient visit 15 minutes Lincoln Balderas MD Work Phone: [facility] Comment on above: Influenza-like illne ss (Primary Dx) Start: 02-25-2024 End: 02-25-[address] Work Phone: Endocrinology Comment on above: PCOS (polycystic ova sivakumar syndrome) (Primary Dx); Obesity, Class III, BMI 40-49.9 (morbid obesity) (HCC) Start: 02-25-2024 End: 02-25-2024 Telemedicine consultation with patient Carissa Sherwood RD Work Phone: Endocrinology Start: 02-05-2024 End: 02-05-2024 Patient encounter procedure Karuna Lim NP-C -[facility] Start: 02-05-2024 End: 02-05-2024 ambulatory Karuna Lim [facility] Facility:[facility] Start: 01-25-2024 End: 01-25-2024 Telephone encounter Mallika Mo APRN.FINISHING AREA SUPERVISOR Work Phone: [facility] Comment on above: Results Start: 01-25-2024 End: 01-25-2024 Patient encounter procedure Louis Schmidt APRN.FINISHING AREA SUPERVISOR Work Phone: [facility] Comment on above: Acute otitis media, left (Primary Dx); Acute otitis externa of left ear, unspecified type Start: 01-25-2024 End: 01-25-2024 ambulatory [facility] Facility:[facility] Start: 01-24-2024 End: 01-24-2024 ambulatory [facility] Facility:[facility] Start: 01-24-2024 End: 01-24-2024 Patient encounter procedure Maru HICKEY Work Phone: [facility] Comment on above: Sore throat (Primary Dx); URI, acute Start: 01-14-2024 End: 01-14-[address] Marco Bartlett MD -[facility] Work Phone: Start: 01-14-2024 End: 01-14-2024 ambulatory [facility] Facility:[facility] Start: 01-08-2024 End: 01-08-2024 ambulatory JEY JOHNSON Facility:[facility] Start: 01-08-2024 End: 01-08-2024 Patient encounter procedure Jey Johnson MD Work Phone: Endocrinology Comment on above: PCOS (polycystic ova sivakumar syndrome) (Primary Dx); Obesity, Class III, BMI 40-49.9 (morbid obesity) (HCC) Start: 12-31-2023 End: 12-31-2023 Bamboo flowsheet Alisson S Baljitt MIXER HELPER Work Phone: [facility] Start: 12-31-2023 End: 12-31-2023 Bamboo flowsheet Alisson S Lucianoandt MIXER HELPER Work Phone: [facility] Start: 12-31-2023 End: 12-31-2023 Office outpatient visit 25 minutes Alisson S Baljitt MIXER HELPER Work Phone: [facility] Comment on above: Morbid obesity with BMI of 45.0-49.9, adult (CMS/HCC) (Primary Dx); Chronic migraine without aura, intractable, without status migrainosus (CMS/HCC) Start: 12-31-2023 End: 12-31-2023 ambulatory ALISSON COATST Not Available Start: 12-19-2023 End: 12-19-2023 Telephone encounter Jey Johnson MD Work Phone: Endocrinology Comment on above: Release Of Medical R ecords Start: 12-19-2023 End: 12-19-2023 ambulatory [facility] Facility:[facility] Start: 12-06-2023 End: 12-17-2023 Refill Alisson S Lucianoandt MIXER HELPER Work Phone: [facility] Comment on above: Chronic migraine wit hout aura, intractable, without status migrainosus (CMS/HCC) Start: 12-05-2023 End: 12-05-2023 ambulatory JEY JOHNSON Facility:[facility] Start: 11-27-2023 End: 11-27-2023 [facility] Start: 11-27-2023 End: 11-27-2023 ambulatory JEY JOHNSON Facility:[facility] Start: 11-27-2023 End: 11-27-2023 Patient encounter procedure Louis Schmidt APRN.CNP Work Phone: [facility] Comment on above: Pain (Primary Dx) Start: 11-21-2023 End: 11-21-2023 ambulatory [facility] Facility:[facility] Start: 11-13-2023 Encounter for other preprocedural examination Andreas Oliva [facility] Start: 10-26-2023 End: 10-26-2023 [facility] Start: 10-26-2023 End: 10-26-2023 Patient encounter procedure Jey Johnson MD Work Phone: Endocrinology Comment on above: PCOS (polycystic ova sivakumar syndrome) (Primary Dx); Obesity, Class III, BMI 40-49.9 (morbid obesity) (HCC) Start: 2023 End: 2023 ambulatory [facility] Facility:[facility] Start: 10-19-2023 End: 10-19-2023 ambulatory [facility] Start: 10-17-2023 Encounter for gynecological examination (general) (routine) with abnormal findings Zeus Miller NP [facility] Start: 10-17-2023 End: 10-17-2023 ambulatory [facility] Start: 10-15-2023 End: 10-15-2023 ambulatory [facility] Facility:[facility] Start: 10-12-2023 End: 10-12-2023 ambulatory [facility] Facility:[facility] Start: 10-10-2023 End: 10-10-2023 ambulatory [facility] Start: 10-10-2023 End: 10-10-2023 ambulatory [facility] Facility:[facility] Start: 10-08-2023 End: 10-08-2023 ambulatory [facility] Facility:[facility] Start: 10-05-2023 End: 10-05-2023 ambulatory [facility] Facility:[facility] Start: 10-03-2023 End: 10-03-2023 ambulatory [facility] Facility:[facility] Start: 09-13-2023 End: 09-13-2023 Patient encounter procedure Lincoln Balderas MD Work Phone: [facility] Comment on above: Impacted cerumen of left ear (Primary Dx) Start: 06-03-2023 End: 06-03-2023 Emergency department patient visit [facility] Work Phone: [facility]-Emergency Department Work Phone: Start: 05-29-2023 End: 05-29-2023 ambulatory AL[place]SON LA[place] Not Available Start: 05-08-2023 End: 05-08-2023 Emergency department patient visit [facility] Work Phone: [facility]-Emergency Department Work Phone: Start: 05-08-2023 End: 05-08-2023 Patient encounter procedure Louis Schmidt APRN.CNP Work Phone: [facility] Comment on above: Dizziness (Primary D x); Headache, unspecified headache type Start: 04-08-2023 End: 04-14-2023 Evaluation and management of inpatient [facility] Start: 04-07-2023 End: 04-08-2023 Emergency department patient visit [facility] Work Phone: [facility]-Emergency Department Work Phone: Start: 03-20-2023 End: 03-20-2023 Patient encounter procedure [facility] Work Phone: [facility] Endocrinology Work Phone: Start: 02-06-2023 End: 02-06-2023 ambulatory [facility] Work Phone: [facility] Work Phone: Start: 02-06-2023 End: 02-06-2023 Patient encounter procedure [facility] Work Phone: [facility]-Ultrasound, [facility] Work Phone: Start: 01-30-2023 End: 01-30-2023 ambulatory [facility] Work Phone: [facility] Work Phone: Start: 01-30-2023 End: 01-30-2023 Patient encounter procedure [facility] Work Phone: [facility] Gastroenterology Work Phone: Start: 01-29-2023 End: 01-29-2023 ambulatory [facility] Work Phone: [facility] Work Phone: Start: 01-29-2023 End: 01-29-2023 Discharged Recurring [facility] Work Phone: [facility]-Physical Therapy Work Phone: Start: 12-20-2022 Non-patient / Non-visit [facility] Work Phone: [facility] Work Phone: Start: 12-19-2022 End: 12-20-2022 Evaluation and management of inpatient [facility] Work Phone: [facility]-Progressive Care Unit Work Phone: Start: 12-19-2022 Non-patient / Non-visit [facility] Work Phone: [facility] Work Phone: Start: 12-19-2022 Non-patient / Non-visit [facility] Work Phone: [facility] Start: 12-18-2022 Non-patient / Non-visit [facility] Work Phone: [facility] Work Phone: Start: 12-18-2022 End: 12-20-2022 Evaluation and management of inpatient [facility] Work Phone: [facility]-Progressive Care Unit Work Phone: Start: 12-18-2022 observation encounter [facility] Work Phone: [facility] Work Phone: Start: 12-12-2022 End: 12-12-2022 ambulatory [facility] Work Phone: [facility] Work Phone: Start: 12-12-2022 End: 12-12-2022 Patient encounter procedure [facility] Work Phone: [facility]-Laboratory Work Phone: Start: 12-09-2022 End: 12-09-2022 Emergency department patient visit [facility] Work Phone: [facility]-Emergency Department Work Phone: Start: 12-04-2022 End: 12-04-2022 Emergency department patient visit VANI CARLSON APRN-FINISHING AREA SUPERVISOR Facility:B Start: 11-22-2022 End: 11-23-2022 Emergency department patient visit [facility] Work Phone: [facility]-Emergency Department Work Phone: Start: 11-07-2022 End: 11-07-2022 ambulatory [facility] Work Phone: [facility] Work Phone: Start: 11-07-2022 End: 11-07-2022 Patient encounter procedure [facility] Work Phone: [facility] Work Phone: Start: 10-03-2022 End: 10-03-2022 Patient encounter procedure [facility] Work Phone: [facility]-Laboratory, Specimen Work Phone: Start: 10-03-2022 End: 10-03-2022 Patient encounter procedure [facility] Work Phone: [facility] [place] [facility] Work Phone: Start: 09-19-2022 End: 09-19-2022 Patient encounter procedure [facility] Work Phone: [facility] Work Phone: Start: 08-29-2022 End: 08-29-2022 Patient encounter procedure [facility] Work Phone: [facility] Gastroenterology Work Phone: Start: 08-15-2022 End: 08-15-2022 Emergency department patient visit [facility] Work Phone: [facility]-Emergency Department Start: 08-08-2022 Non-patient / Non-visit [facility] Work Phone: [facility] Start: 08-08-2022 End: 08-08-2022 Admission to same day surgery center [facility] Work Phone: [facility]-Endoscopy Start: 08-08-2022 End: 08-08-2022 ambulatory [facility] Work Phone: [facility] Work Phone: Start: 06-06-2022 End: 06-06-2022 Patient encounter procedure [facility] Work Phone: [facility] Gastroenterology Start: 03-15-2022 End: 03-15-2022 ambulatory [facility] Work Phone: [facility] Work Phone: Start: 03-15-2022 End: 03-15-2022 Patient encounter procedure [facility] Work Phone: [facility]-Nuclear Medicine, [facility] Start: 03-07-2022 End: 03-07-2022 ambulatory [facility] Work Phone: [facility] Work Phone: Start: 03-07-2022 End: 03-07-2022 Patient encounter procedure [facility] Work Phone: [facility]-Ultrasound, [facility] Start: 02-28-2022 End: 02-28-2022 Patient encounter procedure [facility] Work Phone: [facility] Start: 02-17-2022 End: 02-17-2022 ambulatory [facility] Work Phone: [facility] Work Phone: Start: 02-17-2022 End: 02-17-2022 Patient encounter procedure [facility] Work Phone: [facility]-Laboratory, Specimen Start: 02-15-2022 End: 02-15-2022 Patient encounter procedure [facility] Work Phone: [facility] Gastroenter[facility] Start: 01-31-2022 End: 01-31-2022 ambulatory [facility] Work Phone: Start: 01-31-2022 End: 01-31-2022 Patient encounter procedure [facility]Labor[facility] Start: 01-24-2022 End: 01-24-2022 Emergency department patient visit [facility] Work Phone: [facility]-Emergency Department Start: 01-15-2022 End: 01-15-2022 Emergency department patient visit [facility] Work Phone: [facility]-Emergency Department Start: 12-14-2021 End: 12-14-2021 ambulatory [facility] Work Phone: [facility] Work Phone: Start: 12-14-2021 End: 12-14-2021 Patient encounter procedure [facility] Work Phone: [facility]-MRI - [facility] Start: 12-12-2021 End: 12-12-2021 Patient encounter procedure Lincoln Balderas MD Work Phone: [facility] Comment on above: Dental infection (Pr imary Dx) Start: 11-30-2021 End: 11-30-2021 Patient encounter procedure [facility] Work Phone: [facility] Department, [facility] Start: 09-28-2021 End: 09-28-2021 Patient encounter procedure [facility] Work Phone: [facility] Start: 09-27-2021 End: 09-27-2021 Patient encounter procedure [facility] Work Phone: [facility]-Laboratory Start: 09-10-2021 End: 09-10-2021 Emergency department patient visit [facility] Work Phone: [facility]-Emergency Department Start: 09-03-2021 End: 09-03-2021 Emergency department patient visit [facility] Work Phone: [facility]-Emergency Department Start: 09-03-2021 End: 09-03-2021 Patient encounter procedure Lincoln Balderas MD Work Phone: [facility] Comment on above: Nausea and vomiting, unspecified vomiting type (Primary Dx); Dizziness Start: 08-31-2021 End: 08-31-2021 Patient encounter [facility] Start: 08-29-2021 End: 08-29-2021 Emergency department patient visit [facility] Work Phone: [facility]-Emergency Department Start: 08-24-2021 End: 08-24-2021 Patient encounter procedure [facility] Start: 08-16-2021 End: 08-16-2021 Emergency department patient visit [facility] Work Phone: [facility]-Emergency Department Start: 08-08-2021 End: 08-08-2021 Patient encounter procedure [facility] Work Phone: [facility] Start: 06-27-2021 End: 06-27-2021 Patient encounter procedure [facility]Laboratory Start: 12-14-2020 End: 12-14-2020 Emergency department patient visit ERNESTO BURK DO [facility] Start: 01-07-2020 End: 01-07-2020 Subsequent hospital visit by physician Xr [facility] [place] Work Phone: Radiology Comment on above: Foot pain, left [[id number] .[id number]] Start: 01-31-2017 End: 01-31-2017 Ambulatory SOMMER Crystal ANDRÉSPERRYMarah [facility] Start: 11-24-2016 Ambulatory Mohan Colon [facility] Start: 09-18-2016 End: 09-19-2016 Ambulatory DELMI GOYO [facility] Procedures Date Procedure Procedure Detail Performing Clinician Start: 09-21-2024 Estimated creatinine clearance Naina borges MIXER HELPER-C Work Phone: Start: 09-21-2024 Clostridium difficile detection Naina Da Silva MIXER HELPER-C Work Phone: Start: 09-04-2024 CT of head without contrast Naina lozano MIXER HELPER-C Work Phone: Start: 09-04-2024 Blood count smear mcrscp w/mnl difrntl wbc count Naina Da Silva MIXER HELPER-C Work Phone: Start: 09-04-2024 Estimated creatinine clearance Naina borges MIXER HELPER-C Work Phone: Start: 09-04-2024 Amaya measurement Naina Da Silva MIXER HELPER-C Work Phone: Start: 09-04-2024 Mean corpuscular hemoglobin concentration determination Naina Da Silva MIXER HELPER-C Work Phone: Start: 09-04-2024 Nucleated red blood cell count procedure Naina Da Silva MIXER HELPER-C Work Phone: Start: 09-04-2024 Platelet mean volume determination Jennifer Da Silva MIXER HELPER-C Work Phone: Start: 09-02-2024 Blood count smear mcrscp w/mnl difrntl wbc count Naina Da Silva MIXER HELPER-C Work Phone: Start: 09-02-2024 Mean corpuscular hemoglobin concentration determination Naina Da Silva MIXER HELPER-C Work Phone: Start: 09-02-2024 Nucleated red blood cell count procedure Naina Da Silva MIXER HELPER-C Work Phone: Start: 09-02-2024 Platelet mean volume determination Jennifer Da Silva MIXER HELPER-C Work Phone: Start: 09-02-2024 Procedure Naina Da Silva NP-C Work Phone: Comment on above: Test Ordered: [id number] NuSwab Vaginitis (V G)Test(s) 127840- Atopobium vaginae; 006855- BVAB 2;082774- Megasphaera 1was developed and its performance characteristicsdetermined by [employer]. It has not been cleared or approvedby the Food and Drug Administration.Test(s) 258153-Fnhioah albicans, DAMARIS; 068472-Drfzabm glabrata, NAAwas developed and its performance characteristicsdetermined by [employer]. It has not been cleared or approvedby [...] DAMARIS Negative =G Reference Range: NegativePerformed at: = - Lab[address] [id number] Director: Idalia Yoo MD, Phone: [phone] at: [facility] [employer] [id number] Director: Neeraj Marte PhD, Phone: [phone] Start: 09-02-2024 Urine microscopy: red cells Naina Cope brightjessica MIXER HELPER-C Work Phone: Start: 09-02-2024 Urnls dip stick/tablet reagent auto microscopy Naina Da Silva MIXER HELPER-C Work Phone: Start: 09-02-2024 Urine culture Naina Da Silva MIXER HELPER-C Work Phone: Start: 08-07-2024 MRI of abdomen with contrast Naina davis MIXER HELPER-C Work Phone: Start: 06-10-2024 Blood count smear mcrscp w/mnl difrntl wbc count Naina Da Silva MIXER HELPER-C Work Phone: Start: 06-10-2024 Mean corpuscular hemoglobin concentration determination Naina Da Silva MIXER HELPER-C Work Phone: Start: 06-10-2024 Nucleated red blood cell count procedure Naina Da Silva MIXER HELPER-C Work Phone: Start: 06-10-2024 Platelet mean volume determination Jennifer Da Silva MIXER HELPER-C Work Phone: Start: 06-03-2024 Blood count smear mcrscp w/mnl difrntl wbc count Naina Da Silva MIXER HELPER-C Work Phone: Start: 06-03-2024 Estimated creatinine clearance Naina borges MIXER HELPER-C Work Phone: Start: 06-03-2024 Mean corpuscular hemoglobin concentration determination Naina Da Silva MIXER HELPER-C Work Phone: Start: 06-03-2024 Nucleated red blood cell count procedure Naina Da Silva MIXER HELPER-C Work Phone: Start: 06-03-2024 Platelet mean volume determination Jennifer Da Silva MIXER HELPER-C Work Phone: Start: 06-03-2024 CT angiography of chest with contrast Naina Da Silva MIXER HELPER-C Work Phone: Start: 06-03-2024 CT angiography of head and neck Naina Da Silva MIXER HELPER-C Work Phone: Start: 06-03-2024 Ultrasonography of abdomen Naina christy MIXER HELPER-C Work Phone: Start: 05-23-2024 Amaya measurement Naina Da Silva MIXER HELPER-C Work Phone: Start: 05-14-2024 Blood count smear mcrscp w/mnl difrntl wbc count Naina Da Silva MIXER HELPER-C Work Phone: Start: 05-14-2024 Estimated creatinine clearance Naina borges MIXER HELPER-C Work Phone: Start: 05-14-2024 Mean corpuscular hemoglobin concentration determination Naina Da Silva MIXER HELPER-C Work Phone: Start: 05-14-2024 Nucleated red blood cell count procedure Naina Da Silva MIXER HELPER-C Work Phone: Start: 05-14-2024 Platelet mean volume determination Jennifer Da Silva MIXER HELPER-C Work Phone: Start: 05-14-2024 Plain chest X-ray Naina Da Silva MIXER HELPER-C Work Phone: Start: 05-08-2024 Computed tomography of abdomen and pelvis with intravenous contrast Naina Da Silva MIXER HELPER-C Work Phone: Start: 05-08-2024 Blood count smear mcrscp w/mnl difrntl wbc count Naina Da Silva MIXER HELPER-C Work Phone: Start: 05-08-2024 Estimated creatinine clearance Naina borges MIXER HELPER-C Work Phone: Start: 05-08-2024 Mean corpuscular hemoglobin concentration determination Naina Da Silva MIXER HELPER-C Work Phone: Start: 05-08-2024 Nucleated red blood cell count procedure Naina Da Silva MIXER HELPER-C Work Phone: Start: 05-08-2024 Platelet mean volume determination Jennifer Da Silva MIXER HELPER-C Work Phone: Start: 05-08-2024 Triacylglycerol lipase measurement Jennifer Da Silav MIXER HELPER-C Work Phone: Start: 05-08-2024 Urine microscopy: red cells Naina Anatoliy lozano MIXER HELPER-C Work Phone: Start: 05-08-2024 Urnls dip stick/tablet reagent auto microscopy Naina Da Silva MIXER HELPER-C Work Phone: Start: 05-07-2024 Blood count smear mcrscp w/mnl difrntl wbc count Naina Da Silva MIXER HELPER-C Work Phone: Start: 05-07-2024 Mean corpuscular hemoglobin concentration determination Naina Da Silva MIXER HELPER-C Work Phone: Start: 05-07-2024 Nucleated red blood cell count procedure Naina Da Silva MIXER HELPER-C Work Phone: Start: 05-07-2024 Platelet mean volume determination Jennifer Da Silva MIXER HELPER-C Work Phone: Start: 02-05-2024 Urine culture Naina Da Silva MIXER HELPER-C Work Phone: Start: 01-24-2024 STREP A MOLECULAR (POC) Maru HICKEY Work Phone: Start: 06-03-2023 Plain chest X-ray [facility] Work Phone: Start: 05-08-2023 Plain chest X-ray [facility] Work Phone: Start: 05-08-2023 CT of head without contrast [facility] Work Phone: Start: 05-08-2023 SARS-CoV-2, Influenza & RSV (PCR) [facility] Work Phone: Start: 04-07-2023 Coronavirus COVID-19 PCR [facility] Work Phone: Start: 02-06-2023 Ultrasound elastography of liver [facility] Work Phone: Start: 12-18-2022 Plain chest X-ray [facility] Work Phone: Start: 12-18-2022 CT of head without contrast [facility] Work Phone: Start: 12-09-2022 Urine culture [facility] Work Phone: Start: 11-07-2022 MRI of brain without contrast [facility] Work Phone: Start: 09-19-2022 MRI of small intestine [facility] Work Phone: Start: 08-08-2022 Colonoscopy [facility] Work Phone: Start: 03-15-2022 Radionuclide gastric emptying study [facility] Work Phone: Start: 03-07-2022 Pelvic echography [facility] Work Phone: Start: 03-07-2022 Ultrasonography of abdomen [facility] Work Phone: Start: 03-07-2022 Ultrasound elastography [facility] Work Phone: Start: 01-24-2022 Computed tomography of abdomen and pelvis with intravenous contrast [facility] Work Phone: Start: 01-15-2022 Plain chest X-ray [facility] Work Phone: Start: 12-14-2021 MRI of brain with contrast [facility] Work Phone: Start: 11-30-2021 CT of abdomen [facility] Work Phone: Start: 08-16-2021 Radiography of ankle [facility] Work Phone: Start: 08-16-2021 Radiologic examination of knee [facility] Work Phone: Start: 08-16-2021 X-ray of both feet [facility] Work Phone: Start: 01-07-2020 Radex ankle complete minimum 3 views Clay Tinsley PARTS EXPEDITER.FINISHING AREA SUPERVISOR Work Phone: Cytopathology proced ure, preparation of smear, genital source [facility] Work Phone: Investigation of tra nsfusion reaction [facility] Work Phone: Lactoferrin measurement [facility] Work Phone: Lactoferrin measurement [facility] Work Phone: Ova OR parasites identification Ova OR parasites identification [facility] Work Phone: Spinal arthrodesis ERNESTO CLARK DO Viral antigen assay [facility] Work Phone: Plan of Treatment Date Care Activity Detail Author Start: 07-15-2025 BP Controlled (<130/80) BP Controlled (<130/80) [facility] inic Start: 10-27-2024 ambulatory Facility:[facility] Start: 10-20-2024 Influenza vaccination [facility] Start: 10-16-2024 End: 10-16-2024 Patient encounter procedure 10/16/2024 10:20 AM EDT Office Visit Endocrinology [address] [place] [address] Jey Johnson MD [address] [place], [place] [phone] 3 month f/u-PCOS Endocrinology Comment on above: 3 month f/u-PCOS Start: 10-02-2024 End: 10-02-2024 ambulatory 10/02/2024 2:00 PM EDT [facility] [address] [place] [address] Maria Elena Savage, Clinical Informatics Strategist [address] [phone] Virtual Exercise Prescription Endocrinology Comment on above: Virtual Exercise Prescription Start: 09-26-2024 End: 09-26-2024 Follow-up encounter Endocrinology Comment on above: Can you please schedule this patient for a follow up virtual visit on September 26 at 1:30. Start: 09-21-2024 [facility] Start: 09-21-2024 End: 09-21-2024 Enteric precautions [facility] Start: 09-21-2024 Clostridioides difficile (PCR) Clostridioides difficile (PCR) [facility] Start: 09-04-2024 [facility] Start: 09-04-2024 Amaya measurement [facility] Start: 09-02-2024 Procedure [facility] Start: 09-02-2024 [facility] Start: 09-02-2024 Urine culture [facility] Start: 08-26-2024 End: 08-26-2024 ambulatory 08/26/2024 1:00 PM EDT [facility] Patient Outreach Endocrinology [address] [place] [address] Maria Elena Savage, Clinical Informatics Strategist [address] [phone] Ways to loose weight with other medical issues. Endocrinology Comment on above: Ways to loose weight with other medical issues. Start: 08-01-2024 End: 08-01-2024 Follow-up encounter 08/01/2024 12:15 PM EDT [facility] Endocrinology [address] [phone] Laura Carson, PhD [address] [phone] follow up virtual visit on August 01 at 12:15. Endocrinology Comment on above: follow up virtual visit on August 01 at 12:15. Start: 07-15-2024 End: 07-15-2024 Patient encounter procedure 07/15/2024 10:40 AM EDT Office Visit Endocrinology [address] [place] [address] Jey Johnson MD [address] [place], [place] [phone] 3 MTH F/U-PCOS Endocrinology Comment on above: 3 MTH F/U-PCOS Start: 06-27-2024 End: 06-27-2024 Telemedicine consultation with patient 06/27/2024 10:00 AM EDT Telemedicine [facility] [address] [place] [id number] Alisson [place] NP [address] [place] [address] [facility] Start: 06-04-2024 Hemoglobin A1c measurement HbA1C [facility] Start: 06-03-2024 Us abdominal real time w/image limited [facility] Start: 06-03-2024 End: 06-03-2024 [facility] Start: 05-16-2024 End: 05-16-2024 ambulatory 05/16/2024 8:40 AM EDT [facility] Endocrinology [address] [place] [address] Huey Cortes DO, PhD [address] [place] [address] ENDOCRINE WEIGHT Endocrinology Comment on above: ENDOCRINE WEIGHT Start: 05-15-2024 [facility] Start: 05-14-2024 End: 05-14-2024 [facility] Start: 05-08-2024 [facility] Start: 04-15-2024 End: 04-15-2024 Patient encounter procedure Endocrinology Comment on above: 3 month f/u 3 month f/u PCOS, me ds Start: 04-09-2024 Hepatitis B surface antibody level LDL Cholesterol [facility] Start: 01-31-2024 End: 01-31-2024 ambulatory 01/31/2024 9:00 AM EST [facility] Endocrinology [address] [place] [address] [phone] PCOS (polycystic ovarian syndrome) [E28.2]; Obesity, Class III, BMI 40-49.9 (morbid obesity) (HCC) [E66.01] Endocrinology Comment on above: PCOS (polycystic ovarian syndrome) [E28. 2]; Obesity, Class III, BMI 40-49.9 (morbid obesity) (HCC) [E66.01] Start: 01-25-2024 End: 04-25-2024 Fasting glucose [Mass/volume] in Serum or Plasma GLUCOSE, FASTING Lab Routine PCOS (polycystic ovarian syndrome) Expected: 01/25/2024, Expires: 04/25/2024 [facility] Comment on above: Expected: 01/25/2024, Expires: Start: 01-08-2024 End: 01-08-2024 Patient encounter procedure 01/08/2024 11:40 AM EST Office Visit Endocrinology [address] [place] [address] Jey Johnson MD [address] [place] [place] [address] 2 MTH F/U for irregular cycles, hirsutism . Endocrinology Comment on above: 2 MTH F/U for irregular cycles, hirsutis m . Start: 12-20-2023 End: 12-20-2023 Patient encounter procedure 12/20/2023 10:00 AM EDT Office Visit [facility] [address] [facility] [phone] Alisson [place] NP [address] [place], [place] [address] [facility] Start: 11-16-2023 End: 02-15-2024 17-Hydroxyprogesterone [Mass/volume] in Serum or Plasma HYDROXYPROGESTERONE-17 Lab Routine Obesity, Class III, BMI 40-49.9 (morbid obesity) ([facility]) Expected: 11/16/2023, Expires: 02/15/2024 [facility] Work Phone: Comment on above: Expected: 11/16/2023, Expires: Start: 11-16-2023 End: 02-15-2024 BIOAVAIL TESTO/SHBG, FEM & CHILD BIOAVAIL TESTO/SHBG, FEM & CHILD Lab Routine Obesity, Class III, BMI 40-49.9 (morbid obesity) ([facility]) Expected: 11/16/2023, Expires: 02/15/2024 [facility] Comment on above: Expected: 11/16/2023, Expires: Start: 11-16-2023 End: 02-15-2024 Corticotropin [Mass/volume] in Plasma ACTH BLD Lab Routine Obesity, Class III, BMI 40-49.9 (morbid obesity) ([facility]) Expected: 11/16/2023, Expires: 02/15/2024 [facility] Comment on above: Expected: 11/16/2023, Expires: Start: 11-16-2023 End: 02-15-2024 Cortisol [Mass/volume] in Serum or Plasma CORTISOL, SERUM Lab Routine Obesity, Class III, BMI 40-49.9 (morbid obesity) ([facility]) Expected: 11/16/2023, Expires: 02/15/2024 [facility] Comment on above: Expected: 11/16/2023, Expires: Start: 11-16-2023 End: 02-15-2024 DHEA-S BLD DHEA-S BLD Lab Routine Obesity, Class III, BMI 40-49.9 (morbid obesity) ([facility]) Expected: 11/16/2023, Expires: 02/15/2024 [facility] Comment on above: Expected: 11/16/2023, Expires: Start: 11-16-2023 End: 02-15-2024 Estradiol (E2) [Mass/volume] in Serum or Plasma ESTRADIOL-17B BLD Lab Routine Obesity, Class III, BMI 40-49.9 (morbid obesity) ([facility]) Expected: 11/16/2023, Expires: 02/15/2024 [facility] Comment on above: Expected: 11/16/2023, Expires: Start: 11-16-2023 End: 02-15-2024 Follitropin [Units/volume] in Serum or Plasma FOLLICLE STIMULATING HORMONE Lab Routine Obesity, Class III, BMI 40-49.9 (morbid obesity) ([facility]) Expected: 11/16/2023, Expires: 02/15/2024 [facility] Comment on above: Expected: 11/16/2023, Expires: Start: 11-16-2023 End: 02-15-2024 Hemoglobin A1c in Blood HEMOGLOBIN A1C Lab Routine PCOS (polycystic ovarian syndrome) Expected: 11/16/2023, Expires: 02/15/2024 [facility] Comment on above: Expected: 11/16/2023, Expires: Start: 11-16-2023 End: 02-15-2024 Insulin [Units/volume] in Serum or Plasma INSULIN ASSAY BLOOD Lab Routine PCOS (polycystic ovarian syndrome) Expected: 11/16/2023, Expires: 02/15/2024 [facility] Comment on above: Expected: 11/16/2023, Expires: Start: 11-16-2023 End: 02-15-2024 Lutropin [Units/volume] in Serum or Plasma LUTEINIZING HORMONE Lab Routine Obesity, Class III, BMI 40-49.9 (morbid obesity) (HCC) Expected: 11/16/2023, Expires: 02/15/2024 [facility] Comment on above: Expected: 11/16/2023, Expires: Start: 11-16-2023 End: 02-15-2024 Prolactin [Mass/volume] in Serum or Plasma PROLACTIN Lab Routine Obesity, Class III, BMI 40-49.9 (morbid obesity) (HCC) Expected: 11/16/2023, Expires: 02/15/2024 [facility] Comment on above: Expected: 11/16/2023, Expires: Start: 11-16-2023 End: 02-15-2024 Thyrotropin [Units/volume] in Serum or Plasma THYROID STIMULATING HORMONE Lab Routine Obesity, Class III, BMI 40-49.9 (morbid obesity) (HCC) Expected: 11/16/2023, Expires: 02/15/2024 [facility] Comment on above: Expected: 11/16/2023, Expires: Start: 11-16-2023 End: 02-15-2024 Thyroxine (T4) free [Mass/volume] in Serum or Plasma T4 FREE/FREE THYROXINE Lab Routine Obesity, Class III, BMI 40-49.9 (morbid obesity) (HCC) Expected: 11/16/2023, Expires: 02/15/2024 [facility] Comment on above: Expected: 11/16/2023, Expires: Start: 10-21-2023 Covid-19 Vaccine () Covid-19 Vaccine () [facility] Start: 10-21-2023 Covid-19 Vaccine () Covid-19 Vaccine () [facility] Start: 10-21-2023 Influenza vaccination Influenza Vaccine (#1) [facility] Start: 06-03-2023 [facility] Start: 05-08-2023 [facility] Start: 04-08-2023 [facility] Start: 04-07-2023 Referral to service [facility] Start: 04-07-2023 End: 04-07-2023 Suicide precautions [facility] Start: 02-19-2023 Depression Assessment Depression Assessment [facility] Start: 02-06-2023 Liver elastography w/o imag w/i&r LIVER ELASTOGRAPHY [facility] Start: 12-22-2022 Blood chemistry [facility] Start: 12-21-2022 Blood chemistry [facility] Start: 12-20-2022 Patient discharge [facility] Start: 12-19-2022 Admission procedure [facility] Start: 12-19-2022 [facility] Start: 12-18-2022 Assessment of risk of venous thromboembolism [facility] Start: 12-18-2022 Catheterization of vein [facility] Start: 12-18-2022 Insertion of catheter into peripheral vein [facility] Start: 12-18-2022 Measuring intake and output [facility] Start: 12-18-2022 Providing care according to standard [facility] Start: 12-18-2022 Provision of activity privileges [facility] Start: 12-18-2022 Referral to occupational therapist [facility] Start: 12-18-2022 Referral to service [facility] Start: 12-18-2022 [facility] Start: 12-18-2022 Following clinical pathway protocol [facility] Start: 12-18-2022 Verification routine [facility] Start: 12-18-2022 Admission procedure [facility] Start: 12-18-2022 Hospital admission, emergency, from emergency room, medical nature [facility] Start: 12-18-2022 [facility] Start: 12-18-2022 Consultation [facility] Start: 12-09-2022 End: 12-09-2022 [facility] Start: 10-20-2022 Covid-19 Vaccine ( season) Covid-19 Vaccine () [facility] Start: 10-20-2022 Influenza vaccination Influenza Vaccine (#1) [facility] Start: 09-19-2022 Following clinical pathway protocol [facility] Start: 08-08-2022 Colonoscopy w/biopsy single/multiple COLONOSCOPY AND BIOPSY [facility] Start: 08-08-2022 Egd transoral biopsy single/multiple EGD BIOPSY SINGLE/MULTIPLE [facility] Start: 08-08-2022 Patient discharge [facility] Start: 02-17-2022 Elastase, pancreatic (el-1), fecal; quantitative [facility] Work Phone: Start: 02-17-2022 Protein measurement [facility] Work Phone: Start: 01-24-2022 Enteric precautions [facility] Start: 10-20-2021 Influenza vaccination INFLUENZA (#1) [facility] Start: 09-11-2021 Urine microalbumin profile DTaP,Tdap,Td Vaccine (8 - Td or Tdap) [facility] Start: 09-10-2021 Referral to service [facility] Work Phone: Start: 09-10-2021 Suicide precautions [facility] Work Phone: Start: 08-16-2021 Radiography of ankle Ankle min 3 Views [facility] Work Phone: Start: 08-16-2021 Radiologic examination of knee Knee 1 or 2 Views [facility] Work Phone: Start: 08-16-2021 X-ray of both feet Foot min 3 Views [facility] Work Phone: Start: 08-16-2021 XR Ankle GE 3 Views [facility] Work Phone: Start: 08-16-2021 XR Foot GE 3 Views [facility] Work Phone: Start: 08-16-2021 XR Knee 1 or 2 Views [facility] Work Phone: Start: 04-21-2021 COVID-19 VACCINE (3 - Booster for Pfizer series) COVID-19 VACCINE (3 - Booster for Pfizer series) [facility] Start: 02-19-2021 DEPRESSION ASSESSMENT DEPRESSION ASSESSMENT [facility] Start: 01-16-2021 COVID-19 VACCINE (3 - Booster for Pfizer series) COVID-19 VACCINE (3 - Booster for Pfizer series) [facility] Start: 2017 PAP TESTING PAP TESTING [facility] Start: 2017 Screening for malignant neoplasm of cervix [facility] Start: 08-21-2017 Glaucoma screening Dilated Retinal Exam [facility] Start: 10-25-2015 Pneumococcal vaccination Pneumococcal Vaccine (1 of 2 - PCV) [facility] Start: 10-25-2015 Urine microalbumin profile DTAP,TDAP,TD (1 - Tdap) [facility] Start: 2014 Annual PCP Team Chronic Disease Visit Annual PCP Team Chronic Disease Visit [facility] Start: 2014 Anxiety Screening Anxiety Screening [facility] Start: 2014 BP Controlled (<130/80) BP Controlled (<130/80) [facility] Start: 2014 Depression Screening Depression Screening [facility] Start: 2014 HEPATITIS C SCREENING HEPATITIS C SCREENING [facility] Start: 2014 Hepatitis C screening Hepatitis C Screening [facility] Start: 2014 HIV SCREENING HIV SCREENING [facility] Start: 2014 HIV screening HIV Screening [facility] Start: 2010 PEDS TO ADULT TRANSITION ANNUAL ASSESSMENT PEDS TO ADULT TRANSITION ANNUAL ASSESSMENT [facility] Start: 2008 Adult depression screening assessment DEPRESSION SCREENING [facility] Start: 2008 PEDS TO ADULT TRANSITION INITIAL DISCUSSION PEDS TO ADULT TRANSITION INITIAL DISCUSSION [facility] Start: 10-25-2007 HPV VACCINE (1 - 2-dose series) HPV VACCINE (1 - 2-dose series) [facility] Start: 2006 Diabetic foot examination Diabetic Foot Exam [facility] Start: 2006 Hepatitis B screening Urine Albumin:Creatinine Ratio [facility] Start: 2006 MENINGOCOCCAL B: Consider based on risk (1 of 2 - Risk Bexsero 2-dose series) MENINGOCOCCAL B: Consider based on risk (1 of 2 - Risk Bexsero 2-dose series) [facility] Start: 1996 HEPATITIS B (1 of 3 - 3-dose series) HEPATITIS B (1 of 3 - 3-dose series) [facility] Cardiac event recording [facility] Clostridioides diffi cile DNA [Presence] in Unspecified specimen by DAMARIS with probe detection [facility] Work Phone: Clostridioides diffi cile DNA [Presence] in Unspecified specimen by DAMARIS with probe detection [facility] COVID & INFLUENZA A/ B & RSV PCR, ROUTINE COVID & INFLUENZA A/B & RSV PCR, ROUTINE Microbiology Routine Sore throat URI, acute 01/24/2024 2:45 PM EST [facility] Work Phone: COVID & INFLUENZA A/ B & RSV PCR, ROUTINE COVID & INFLUENZA A/B & RSV PCR, ROUTINE Microbiology Routine Influenza-like illness Ordered: 04/14/2024 [facility] Work Phone: Comment on above: Ordered: 04/14/2024 Gastrointestinal pathogens panel - Stool by DAMARIS with probe detection [facility] Work Phone: Hemoglobin A1c/Hemoglobin.total in Blood [facility] Lactoferrin [Presenc e] in Stool by Immunoassay [facility] Work Phone: Liver stiffness by US.transient elastography [facility] MR Abdomen WO and W contrast IV [facility] Ova and Parasites Ova and Parasites [facility] Work Phone: Ova and parasites identified in Unspecified specimen by Light microscopy [facility] Work Phone: Patient Education [facility] Work Phone: Patient referral [facility] Work Phone: Protein measurement [facility] Work Phone: Radionuclide gastric emptying study [facility] Work Phone: Removal impacted cer umen irrigation/lvg unilat AMBULATORY EAR LAVAGE/IRRIGATION Procedures Routine Impacted cerumen of left ear Ordered: 09/13/2023 [facility] Work Phone: Comment on above: Ordered: 09/13/2023 Troponin T.cardiac [Mass/volume] in Serum or Plasma by High sensitivity method [facility] Ultrasound elastography [facility] Work Phone: US Abdomen limited [facility] Work Phone: Immunizations Immunization Date Immunization Notes Care Provider Fa romel 10-31-2020 influenza virus vacc ine, unspecified formulation Louis Schmidt APRN.FINISHING AREA SUPERVISOR Work Phone: [facility] Payers Date Payer Category Payer Self-pay [id number] 2020 Medicaid [employer] [facility] [id number] 2020-Present [phone] [address] [place] [address] Medicaid [id number] 2020 Medicaid [id number]. [id number] 2019 Private Health Insurance 2019 Medicaid [id number] 2016 Private Health Insurance [id number] 1996 Unknown [id number] 2.16.840.1.187302.3.579.2. 627 1996 Unknown [id number] 2.16.840.1.180107.3.579.2. 903 1996 Unknown [id number] 2.16.840.1.509863.3.579.2. 1259 1996 Unknown [id number] 2.16.840.1.359790.3.579.2. 1259 Unknown [id number] Unknown [id number] 2.16.840.1.808128.3.579.2. 462 Unknown [id number] 2.16.840.1.181635.3.579.2. 462 Unknown [id number] 2.16.840.1.310519.3.579.2. 462 Unknown [id number] 2.16.840.1.139209.3.579.2. 462 Unknown [id number] 2.16.840.1.616587.3.579.2. 462 Unknown [id number] 2.16840.1.617986.3.579.2. 462 Unknown [id number] 2.16.840.1.019970.3.579.2. 462 Unknown [id number] 2.16840.1.189907.3.579.2. 462 Unknown [id number] 2.16840.1.100261.3.579.2. 462 Unknown [id number] 2.840.1.901352.3.579.2. 462 Unknown [id number] 2.840.1.742872.3.579.2. 462 Unknown [id number] 2.840.1.555298.3.579.2. 462 Unknown [id number] 2.840.1.562496.3.579.2. 462 Unknown [id number] 2.840.1.140447.3.579.2. 462 Unknown [id number] 2.840.1.488342.3.579.2. 462 Unknown [id number] 2.840.1.916924.3.579.2. 462 Unknown [id number] 2.840.1.168122.3.579.2. 462 Unknown [id number] 2.840.1.417831.3.579.2. 462 Unknown [id number] 2.840.1.162725.3.579.2. 462 Unknown [id number] 2.840.1.728532.3.579.2. 462 Unknown [id number] 2.16840.1.370617.3.579.2. 462 Unknown [id number] 2.16840.1.003656.3.579.2. 462 Unknown [id number] 2.840.1.494225.3.579.2. 462 Unknown [id number] 2.16.840.1.933188.3.579.2. 462 Unknown [id number] 2.16.840.1.543460.3.579.2. 462 Unknown [id number] 2.16.840.1.591004.3.579.2. 462 Unknown [id number] 2.16.840.1.257422.3.579.2. 462 Unknown [id number] 2.16.840.1.426469.3.579.2. 462 Unknown [id number] 2.16.840.1.972572.3.579.2. 462 Unknown [id number] 2.16.840.1.718868.3.579.2. 462 Unknown [id number] 2.16.840.1.083454.3.579.2. 462 Unknown [id number] 2.16.840.1.704158.3.579.2. 462 Unknown [id number] 2.16.840.1.062771.3.579.2. 462 Unknown [id number] 2.16.840.1.699810.3.579.2. 462 Unknown [id number] 2.16.840.1.085894.3.579.2. 462 Unknown [id number] 2.16.840.1.766005.3.579.2. 462 Unknown [id number] 2.16.840.1.998764.3.579.2. 462 Unknown [id number] 2.16.840.1.447408.3.579.2. 462 Social History Date Type Detail Facility Start: 08-21-2016 End: 09-21-2024 Never smoked tobacco (finding) [facility] Assigned At [facility] Start: 02-03-2021 End: 01-30-2023 Tobacco smoking status NHIS Unknown if ever smoked [facility] Start: 05-27-2020 With Family [facility] Start: 09-22-2020 Non-smoker [facility] Start: 1995 Sex Assigned At Female W [facility] Start: 08-21-2016 End: 01-08-2024 Tobacco use and exposure Smokeless tobacco non-user [facility] Start: 10-13-2020 End: 07-15-2024 Alcohol intake Current non-drinker of alcohol (finding) [facility] Start: 1995 Sex Assigned At Not on file [facility] Start: 12-08-2019 End: 09-03-2021 Exposure to SARS-CoV-2 (event) Not sure [facility] Start: 12-12-2021 End: 10-26-2023 History of Social function [facility] Start: 12-12-2021 End: 10-26-2023 Tobacco use panel [facility] National Score (1-100), lower number is lower risk Not on file [facility] Start: 07-30-2022 End: 12-31-2023 Alcoholic beverage intake Current drinker of alcohol (finding) [facility] Start: 07-30-2022 Alcohol Comment Alcohol: 1-2 drinks/monthly or less. caffeine: 3-4 cups/day [facility] Start: 05-02-2024 End: 06-05-2024 Sex Female (finding) [facility] Start: 05-30-2024 Gender identity Identifies as female gender (finding) [facility] Start: 05-30-2024 Sexual orientation Heterosexual (fin wayne) [facility] NEGATED: Highlighted row [facility] NEGATED: Highlighted rowStart: NINF History of tobacco use Passive smoker [facility] Medical Equipment Procedure Code Equipment Code Equipment Origin al Text Equipment Identifier Dates Start: 08-15-2023 End: 07-15-2024 Goals Date Patient Goal Desired Activity /State Functional Status Date Assessment Result Facility 12-20-2022 Functional status Ambulates [facility] Work Phone: 09-19-2022 Functional status Ambulates [facility] Work Phone: Mental Status Date Assessment Result Facility 09-04-2024 Cognitive function Awake;Alert;A ppropriate;Follow s Commands [facility] Work Phone: 06-03-2024 Cognitive function Voice/Name [facility] Work Phone: 05-14-2024 Cognitive function Awake;Alert;A ppropriate;Follow s Commands [facility] Work Phone: 05-08-2023 Cognitive function Level Of Cons ciousness Awake;Alert;Appropriate [facility] Work Phone: 12-20-2022 Cognitive function Voice/Name [facility] Work Phone: 12-18-2022 Cognitive function Level Of Cons ciousness Awake;Alert;Follows Commands [facility] Work Phone: 11-22-2022 Cognitive function Level Of Cons ciousness Awake;Alert;Appropriate;Follow s Commands [facility] Work Phone: 09-19-2022 Cognitive function Voice/Name [facility] Work Phone: 08-08-2022 Cognitive function Touch/Shaking [facility] Work Phone: 08-08-2022 Cognitive function Patient Orien tation Person;Place;Time [facility] Work Phone: 01-15-2022 Cognitive function Level Of Cons ciousness Awake;Alert;Appropriate;Follow s Commands [facility] Work Phone: 08-29-2021 Cognitive function Level Of Cons ciousness Awake;Alert;Appropriate;Follow s Commands [facility] Work Phone: Clinical Notes 01-07-2020 to 09-22-2024 Telephone Encounter - Chhaya Cano RN - 09/22/2024 2:06 PM EDTTelephone Encounter - Chhaya Cano RN - 09/22/2024 2:06 PM EDTTelephone Encounter - Arsenio Solorio LSW - 08/28/2024 3:49 PM EDT Note Date & Type Note Facility 09-22-2024 Telephone encounter Note This matter is being addressed in a separate encounter (Refill 09/19). Closing this encounter. Sulma Cano RN [facility] 09-22-2024 Miscellaneous Notes This matter is being addressed in a separate encounter (Refill 09/19). Closing this encounter. 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 Note/Intervention: n/a [employer] referral placed: n/a Signature: KANU Pathak Patient Name: Marion Sarabiaarturo Date: 08/28/2024 Time: 3:50 PM Pager/Contact #: [phone] During this patient contact I spent approximately 5 minutes in reviewing the patient's chart and counseling regarding community resources and coordinating care. 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 Note/Intervention: n/a [employer] referral placed: n/a Signature: KANU Pathak Patient Name: Marion Mistryramesh Date: 08/28/2024 Time: 3:50 PM Pager/Contact #: [phone] During this patient contact I spent approximately 5 minutes in reviewing the patient's chart and counseling regarding community resources and coordinating care. documented in this encounter [facility] 08-26-2024 History of Present illness Narrative Virtual [...] an exercise prescription. documented in this encounter [facility] 08-26-2024 Note HNO ID: [id number] Author: MARIA ELENA SAVAGE Clinical Informatics Strategist Service: ? Author Type: Clinical Informatics Strategist Type: Progress Notes Filed: 08/26/2024 13:13 Note [...] test prior to receiving an exercise prescription. [facility] 08-01-2024 Note HNO ID: [id number] Author: LAURA CARSON, PhD Service: ? Author Type: Psychologist Type: Progress Notes Filed: 08/01/2024 14:55 Note Text: [facility] DEPARTMENT OF ENDOCRINOLOGY Progress Note August 01, 2024 COST CENTER: [facility] BILLING CODE:Leonid CPT Code:4462326 Virtual PSYTX PT AND/FAMILY 45 MINS Time initiated session: 12:20 PM to 1:30 PM Date of First Session: 06/02/24 (initial evaluation) Session #: 2 Collateral Parties Present: parent. Virtual Visit yes I have communicated my name and active licensure. If seen remotely, The patient's identity and physical location were verified at the time of this visit. Either the patient or their legal access representative has been informed of the risks [...] yes The day before yesterday: 8:30 Leftover Bulgarian food, chips, salsa guac 11:30 Taco salad [...] at 1:30 pm Laura Carson, PhD Psychologist [facility] 08-01-2024 History of Present illness Narrative Images from the original note were not included. [facility] DEPARTMENT OF ENDOCRINOLOGY Progress Note August 01, 2024 [facility] CENTER: [facility] BILLING CODE:Leonid CPT Code:8246502 Virtual PSYTX PT &/FAMILY 45 MINS Time initiated session: 12:20 PM to 1:30 PM Date of First Session: 06/02/24 (initial evaluation) Session #: 2 Collateral Parties Present: parent. Virtual Visit yes I have communicated my name and active licensure. If seen remotely, The patient's identity and physical location were verified at the time of this visit. Either the patient or their legal access representative has been informed of the risks [...] yes The day before yesterday: 8:30 Leftover Bulgarian food, chips, salsa guac 11:30 Taco salad [...] Carson, PhD Psychologist documented in this encounter [facility] 07-15-2024 Instructions Jey Johnson MD - 07/15/2024 10:59 AM EDT Please continue same regimen for the control pills documented in this encounter [facility] 07-15-2024 Note HNO ID: [id number] Author: JEY JOHSNON MD Service: ? Author Type: Physician Type: Progress Notes Filed: 07/16/2024 23:20 Note Text: Endocrinology and Metabolism [facility] Follow up note Chief complaint: Evaluation of [...] Allergies Cough Janell (more content not 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 [facility] 07-15-2024 History of Present illness Narrative Endocrinology and Metabolism [facility] Follow up note Chief complaint: Evaluation of [...] 07-23-2023 CORTISOL,F/24hr 46 ug/24 hr High 6-42 [facility] CORTISOL,U FREE 16 ug/L Normal Undefined [facility] Metanephrine Frac 24 HR UR on 07-23-2023 Metaneph,UR 24H 68 ug/24 hr Normal 36-209 [facility] Metanephrines,U 24 ug/L Normal Undefined [facility] Normetan,UR 24h 522 ug/24 hr High 95-449 [facility] Normetanephrine 183 ug/L Normal Undefined [facility] Catecholamines, 24 UR on 07-20-2023 Dopamine, Urine 580 ug/L Normal Undefined [facility] Dopamine,U,24HR 957 ug/24 hr High 0-510 [facility] Epineph.,U,24HR 5 ug/24 hr Normal 0-20 [facility] Epinephrine, U 3 ug/L Normal Undefined [facility] Norepin.,U,24HR 134 ug/24 hr Normal 0-135 [facility] Comment on above: Order Comment: Test(s) 928901-Chtomejoedm, Urine; 580558-Aaboclgtwgmchu, Ur; 529539-Xobwonhn, Urinewas developed and its performance characteristicsdetermined by [employer]. It has not been cleared or approvedby the Food and Drug Administration. Performed By: #### L3600.0150 ####[facility] [address] [place], [place], [id number] Norepinephrin,U 81 ug/L Normal Undefined [facility] Adrenocorticotropic Hormone on 07-17-2023 ACTH 9.7 pg/mL Normal 7.2-63.3 [facility] CORTISOL SERUM on 07-17-2023 CORTISOL 20.10 ug/dL Normal 3.44-22.45 [facility] Catecholamines, Plasma on 07-17-2023 DOPAMINE <30 Normal 0-48 [facility] EPINEPHRINE <15 Normal 0-62 [facility] NOREPINEPHRINE 429 pg/mL Normal 0-874 [facility] Gastrin, Serum on 07-17-2023 GASTRIN 265 pg/mL High 0-115 [facility] Insulin Level on 07-17-2023 INSULIN,FASTING 93.7 uIU/mL High 2.6-24.9 [facility] Insulin Like Growth Factor on 07-17-2023 SOMATOMEDIN C 122 ng/mL Normal 91-308 [facility] Chromogranin A 206.0 ng/mL Abnormal 0.0-101.8 [facility] Renin/Aldosterone Activity on 07-17-2023 ALD/RENIN RATIO 11.6 Normal 0.0-30.0 [facility] Performed By: #### L3400.1350, L3300.3500, L3300.1800, L3430.0100, L3300.1000, L3300.1050, L3100.4810 ####[facility] [address] [place], [address] ALDOSTERONE,S 45.0 ng/dL High 0.0-30.0 [facility] RENIN, PLASMA 3.873 ng/mL/hr Normal 0.167-5.380 [facility] BUN/CRE 18.1 RATIO Normal 10-20 [facility] CA,Total 9.0 mg/dL Normal 8.5-10.1 [facility] Chloride [Moles/Vol] 110 mmol/L High 98-107 [facility] CO2 [Moles/Vol] 25.0 mmol/L Normal 21.0-32.0 [facility] Creatinine [Mass/Vol] 0.66 mg/dL Normal 0.55-1.02 [facility] Performed By: #### L100.0100, L500.4050, L506.1000, L501.31904, L501.9520, L506.0400, L501.9060 ####[facility] [address] [place], [place], [id number] EST GFR - AA 138 mL/min Normal >60 [facility] Performed By: #### L100.0100, L500.4050, L506.1000, L501.20428, L501.9520, L506.0400, L501.9060 ####[facility] [address] [place], [place], [id number] GAP 3 Low 5-15 [facility] GFR/1.73 sq M.predicted among non-blacks MDRD (S/P/Bld) [Vol rate/Area] 114 mL/min/(1.73_m2) Normal >60 [facility] Globulin (S) [Mass/Vol] 3.8 g/dL Normal 2.2-4.2 [facility] Glucose [Mass/Vol] 124 mg/dL High 74-106 [facility] Performed By: #### L100.0100, L500.4050, L506.1000, L501.55966, L501.9520, L506.0400, L501.9060 ####[facility] [address] [place], [place], [id number] Potassium [Moles/Vol] 4.0 mmol/L Normal 3.5-5.1 [facility] Sodium [Moles/Vol] 138 mmol/L Normal 136-145 [facility] T PROT 7.0 g/dL Normal 6.4-8.2 [facility] Urea nitrogen [Mass/Vol] 12 mg/dL Normal 7-18 [facility] Free T3 on 07-05-2023 Free T3 [Mass/Vol] 2.4 pg/mL Normal 2.18-3.98 [facility] Comment on above: Performed By: #### L100.0100, L500.4050, L506.1000, L501.55095, L501.9520, L506.0400, L501.9060 ####[facility] [address] [place], [address] Amaya on 07-05-2023 LI 0.80 mmol/L Normal 0.60-1.20 [facility] T4 Free Direct on 07-05-2023 T4 FREE DIRECT 1.04 ng/dL Normal 0.76-1.46 [facility] Comment on above: Performed By: #### L100.0100, L500.4050, L506.1000, L501.45510, L501.9520, L506.0400, L501.9060 ####[facility] [address] [place], [address] Thyroid Stim Hormone (TSH) on 07-05-2023 TSH 2.10 uIU/mL Normal 0.358-3.74 [facility] Vitamin D,25 Hydroxy on 07-05-2023 Vitamin D 25-OH 30.3 ng/mL Normal [facility] Latest Ref Rng 12/05/2023 Sex Hormone [...] Moderate Jey Johnson MD Endocrinology Associate Staff [facility] Endocrinology and Metabolism [facility] [phone] documented in this encounter [facility] 06-26-2024 Telephone encounter Note Images from the original note were not included. Patient confirms taking Kern-Linyah and not Sprintec (also on med list). Pended for review. Most recent Endocrinology visit: Last encounter Visit on 05/16/2024 (with Peris Alejandrobera) 10/26/2023 in [facility] with EJY JOHNSON for PCOS (polycystic ovarian syndrome) 01/08/2024 in [facility] with SN PHYLICIAIGDHA LAGUNA for PCOS (polycystic ovarian syndrome) 04/15/2024 in [facility] with BENDSN IBRAHIMAIGDHA LAGUNA for Obesity, Class III, BMI 40-49.9 (morbid obesity) 05/16/2024 in [facility] with KIBERA, PERIS for Obesity, Class III, BMI 40-49.9 (morbid obesity) Upcoming Endocrinology Appointments - Next 365 Days Visit Type Date Time Department EST HAM PATIENT 07/15/2024 10:40 AM ENDO [facility] [place] VIDEO SPEC EST 08/01/2024 12:15 PM ENDO PSYL DIABETES CTR MAIN VIDEO GROUP EP EDU NON IRASEMA 08/26/2024 1:00 PM ENDO [facility] Requested Prescriptions Pending Prescriptions Disp Refills MONO-LINYAH 0.25-0.035 mg tablet [Pharmacy Med Name: Kern-Linyah 0.25-35MG-MCG TABS] 28 tablet 2 Sig: TAKE [...] Prolactin Prolactin 4.4 - 33.8 ng/mL 15.2 [facility] 06-26-2024 Miscellaneous Notes Images from the original note were not included. Patient confirms taking Kern-Linyah and not Sprintec (also on med list). Pended for review. Most recent Endocrinology visit: Last encounter Visit on 05/16/2024 (with Huey Cortes) 10/26/2023 in [facility] [place] with BENDARAM, JEY LAGUNA for PCOS (polycystic ovarian syndrome) 01/08/2024 in [facility] [place] with BENDARAM, JEY LAGUNA for PCOS (polycystic ovarian syndrome) 04/15/2024 in [facility]O [facility] [place] with BENDARAM, JEY LAGUNA for Obesity, Class III, BMI 40-49.9 (morbid obesity) 05/16/2024 in ENDO [facility] with KIBERA, PERIS for Obesity, Class III, BMI 40-49.9 (morbid obesity) Upcoming Endocrinology Appointments - Next 365 Days Visit Type Date Time Department EST HAM PATIENT 07/15/2024 10:40 AM [facility] [place] V[facility] SPEC EST 08/01/2024 12:15 PM ENDO PSYL DIABETES CTR MAIN VIDEO GROUP EP EDU NON IRASEMA 08/26/2024 1:00 PM ENDO [facility] Requested Prescriptions Pending Prescriptions Disp Refills MONO-LINYAH 0.25-0.035 mg tablet [Pharmacy Med Name: Kern-Linyah 0.25-35MG-MCG TABS] 28 tablet 2 Sig: TAKE [...] 33.8 ng/mL 15.2 documented in this encounter [facility] 06-03-2024 Discharge summary [facility] 06-03-2024 Radiology Diagnostic study note [facility] Imaging Services [address] [place] [address] CTA Head AND Neck W/ Contrast MR#: [id number] Acct: [id number] Name: MARION GUTIERREZ Rep #: [id number] : 1995 F 28 From: Theresa Forrester MD PCP: Karuna Lim [facility] MIXER HELPER-C Status: REG ER Study:CTA Head AND Neck W/ Contrast Date of E xam: 06/03/24 Exam# [id number] Ordering Dr: Jorgito Galicia MD PROCEDURE: CT [...] of the [place]. 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 Additional description as above. Reading Location: [id number] CC: Dr. Jaylon Galicia MD; Karuna [facility] HORTENSIA Beam ~ Nutrition Specialist: Signed [facility] 06-03-2024 Radiology Diagnostic study note [facility] Imaging Services [address] [place], [place] [id number] CTA Chest W/WO Contrast MR#: [id number] Acct: [id number] Name: MARION GUTIERREZ Rep #: [id number] : 1995 F 28 From: Theresa Forrester MD PCP: Karuna Lim [facility] MIXER HELPER-C Status: REG ER Study:CTA Chest W/WO Contrast Date of Exam: 06/03/24 Exam# [id number] Ordering Dr: Jorgito Galicia MD PROCEDURE: CTA [...] 3. Additional description as above. Reading Location: [id number] CC: Dr. Jaylon Galicia MD; Paytonadalgisa [facility] SIRENA-C Beam ~ Nutrition Specialist: Signed [facility] 06-03-2024 Radiology Diagnostic study note [facility] Imaging Services [address] [place], [place] [address] Abdomen Limited MR#: [id number] Acct: [id number] Name: MARION GUTIERREZ Rep #: [id number] : 1995 F 28 From: Colby Espitia MD PCP: Karuna Lim Status: REG CLI Study:Abdomen Limited Date of Exam: 05/20 07/13 Exam# [id number] Ordering Dr: Juventino Lim PROCEDURE: ABDOMEN LIMITED 06/03/2024 REASON FOR EXAM: [...] infiltration of the liver. Hepatomegaly. Reading Location: [facility] CC: Karuna [facility] MIXER HELPER-C Beam ~ Nutrition Specialist: Signed [facility] 06-02-2024 Note HNO ID: [id number] Author: LAURA CARSON, PhD Service: ? Author Type: Psychologist Type: Progress Notes Filed: 06/02/2024 16:36 Note Text: [facility] EVALUATION DATE OF SERVICE: June 02, 2024 TIME OF SERVICE: 2:30 pm COST CENTER: [facility]BO CPT CODE: 30555 Brief Emotional/Behavioral Assessment with scoring/documentation [id number] Virtual PSYCH DIAGNOSTIC EVAL BILLING CODE: Leonid [...] visit. Either the patient or their legal access representative has been informed of the risks and benefits of -- and alternatives to -- treatment through a remote evaluation and consents to proceed with the evaluation remotely. IDENTIFYING INFORMATION Ms. Marion Gutierrez is a 28 year old female. She was referred by Dr. Cortes. [place] pt's mom was also in meeting. Mom is not currently medical power of research attorney but they have discussed this. Pt [...] Extracts Hives, Intolera (more content not 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 [facility] 06-02-2024 History of Present illness Narrative Images from the original note were not included. [facility] EVALUATION DATE OF SERVICE: June 02, 2024 TIME OF SERVICE: 2:30 pm COST CENTER: [facility] CPT CODE: 77020 Brief Emotional/Behavioral Assessment with scoring/documentation [id number] Virtual PSYCH DIAGNOSTIC EVAL BILLING CODE: Leonid SESSION #: 1 The patient signed the Informed Consent for Psychological Evaluation & Care Form, and the [facility] care insurance benefits, fees for service, emergency [...] visit. Either the patient or their legal access representative has been informed of the risks and benefits of -- and alternatives to -- treatment through a remote evaluation and consents to proceed with the evaluation remotely. IDENTIFYING INFORMATION Ms. Marion Gutierrez is a 28 year old female. She was referred by Dr. Cortes. [place] pt's mom was also in meeting. Mom is not currently medical power of research attorney but they have discussed this. Pt [...] include family life. - Working with a ordnance engineer on a Mediterranean diet. - Denies interest [...] AM. 1/2 sandwich of two pieces of Sudanese toast, a sausage bautista, fried egg. Glass [...] day. 2 cans of pop per day [place] or chocolate milk 8 oz 2-3 times [...] to every two weeks (18 months) Psychiatrist MIXER HELPER at same center [facility] - sees [...] with adult life skills. Pt has case briefer. Pt takes medication on her own, except for Abilify injection about once per month. 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 Stopped due to medical conditions The patient has completed 12 years of education (high school). 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/A [...] 12:15 virtually Laura Carson, PhD, RD, LD, [facility], Psychologist documented in this encounter [facility] 05-29-2024 Evaluation note Diagnosis Onset Date Resolution Palpitations acute May 29, 2024 2:32pm Syncope acute May 29 2:32pm Hypertension chronic May 29, 2024 2:32pm [facility] Work Phone: 1(702) 242-892204-10-2025 Evaluation note* Diagnosis Onset Date Resolution Status Admit Date Palpitations acute May 29, 2024 2:32pm Syncope acute May 29 2:32pm Hypertension chronic May 29, 2024 2:32pm Palpitations acute July 08 9:56am Crohn's disease chronic July 08, 2024 9:56am Fatty liver chronic July 08 9:56am Gastroparesis chronic July 08, 2 025 9:56am Nausea vomiting and diarrhea chronic July 08, 2024 9:56am Palpitations acute July 24 1:29pm Syncope acute July 24, 2024 1:29pm Hypertension chronic July 24 1:29pm [facility] Work Phone: 1(791) 116-212304-10-2025 Evaluation note* Diagnosis Onset Date Resolution Status Admit Date Palpitations acute May 29, 2024 2:32pm Syncope acute May 29 2:32pm Hypertension chronic May 29, 2024 2:32pm Palpitations acute July 08 9:56am Crohn's disease chronic July 08, 2024 9:56am Fatty liver chronic July 08 9:56am Gastroparesis chronic July 08, 2 025 9:56am Nausea vomiting and diarrhea chronic July 08, 2024 9:56am Palpitations acute July 24 1:29pm Syncope acute July 24, 2024 1:29pm Hypertension chronic July 24 1:29pm Acute diarrhea acute September 2:24pm [facility] Work Phone: 1(137) 711-679503-28-2025 Instructions* Patient Instructions* Huey Cortes DO, PhD [...] me. - Continue working with your current ordnance engineer, Carissa Sherwood, on a low-carb Mediterranean diet to help control your weight. - Increase physical activity as tolerated; a referral to an corporate human resources manager will be availablein [facility] to help you develop an individualized exercise program. - Schedule a visit with the corporate human resources manager through [facility]. - Schedule a visit with the endocrine psychologist through [facility] to address binge eating, emotional eating, [...] is in 3 months. documented in this encounter[facility]25 NoteHNO ID: [id number] Author: HUEY CORTES DO, PhD Service: ? Author Type: Physician Type: Progress Notes Filed: 05/16/2024 18:12 Note Text: [facility] - NEW VIRTUAL VISIT I have communicated my name and active licensure. The patient's identity and physical location were verified at the time of this visit. Either the patient or their legal access representative has been informed of the risks and benefits of -- and alternatives to -- treatment through a remote evaluation and consents to proceed with the evaluation remotely. The patient consented to the use of ambient [employer] software for draft documentation of the visit consistent with [facility]?s Notice of Privacy Practices. REASON OF VISIT: [...] include family life. - Working with a ordnance engineer on a Mediterranean diet. - Denies interest [...] lose weight Pertinent medications causing weight gain: Amaya, imipramine, Lopressor, simvastatin Pertinent medications causing weight loss: None WEIGHT HISTORY AND TRAJECTORY: Weight Curve Childhood: Overweight High School: Overweight College: Overweight Adult years: Overweight Previous attempt for weight loss, including medications: Lifestyle modification, metformin Lifestyle Factors Diet and Eating behaviors 24h food recall: -- B: 10:30-11 AM. 1/2 sandwich of two pieces of Sudanese toast, a sausage bautista, fried egg. 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 Interest in bariatric surgery: Not sure MEN-2A/2B or MTC, including first degree relatives: Denies Pancreatitis/gastroparesis: Yes CAD/Stroke/Tachycar (more content not 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[id number] History of Present illness Narrative* Huey Cortes DO, PhD - 05/16/2024 8:49 AM EDT Images from the original note were not included. [facility] - NEW VIRTUAL VISIT I have communicated my name and active licensure. The patient's identity and physical location wereverified at the time of this visit. Either the patient or their legal access representative has been informed of the risks and benefits of -- and alternatives to -- treatment through a remote evaluation andconsents to proceed with the evaluation remotely. The patient consented to the use of ambient AI software for draft documentation of the visit consistent with [facility] s Notice of Privacy Practices. REASON OF [...] include family life. - Working with a ordnance engineer on a Mediterranean diet. - Denies interest [...] lose weight Pertinent medications causing weight gain: Amaya, imipramine, Lopressor, simvastatin Pertinent medications causing weight loss: None WEIGHT HISTORY AND TRAJECTORY: Weight Curve Childhood: Overweight High School: Overweight College: Overweight Adult years: Overweight Previous attempt for weight loss, including medications: Lifestyle modification, metformin Lifestyle Factors Diet and Eating behaviors 24h food recall: -- B: 10:30-11 AM. 1/2 sandwich of two pieces of Sudanese toast, a sausage bautista, fried egg. 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 CanDiagTOUCH VERIO TEST STRIPS test strip 1 Each [...] - Patient is already working with a ordnance engineer, Carissa Sherwood, on a Mediterranean diet. - Referred to corporate human resources manager to develop an individualized exercise program considering [...] accompanying intellectual impairment, requiring support (level 1) ([facility]) (F84.0) - Continue current management and support. 9. PCOS (polycystic ovarian syndrome) (E28.2) - Continue current management. 10. Irritable bowel syndrome with diarrhea (K58.0) - Symptoms vary between diarrhea and constipation. - Continue current management with Miralax and lactulose as needed. 11. Bipolar affective disorder, remission status unspecified ([facility]) (F31.9) - Continue current medications: lithium, aripiprazole [...] 4 - Moderate Huey Cortes DO, PhD [facility] documented in this [facility] Discharge summary [facility] Medical Records Department [address] [place] [address] Emergency Department Summary 05/15/24 MR#: [id number] Acct: [id number] Name: MARION GUTIERREZ Rep #:[id number] : 1995 28 From: Stan Lin DO PCP: ERED Sotomayor, MIXER HELPER-C Statu s:REG ER Location: ED HPI History [...] evaluation management. Patient denies any sick contacts [facility] Medical History Alcohol use Picking own [...] lauroxil 441 mg/1.6 441 mg IM .COMPLEX [facility] 12/18/22 10/23/23 History mL suspension, ext.rel. [...] following commands and that she was at [facility] year is 2024. NIH of 0 [...] % (Auto) 58.9 Lymph % (Auto) 31.2 [place] % (Auto) 9.0 Eos % (Auto) 0.4 [...] 21:00 IMPRESSION: No Acute Findings. Reading Location: [facility] Discharge Plan Triage Chief Complaint: Chest [...] Naina Da Silva Referrals: Naina Da Silva, MIXER HELPER-C [Primary Care Provider] - Activity Restrictions/Additional Instructions: Follow with your primary care physician outpatient setting. Return with worsening symptoms or concerns. Chest x-ray is normal and your blood work was normal. Use your Reglan that you have at home fornausea and vomiting. Print Language: Wallisian Disposition Disposition: Home, Self Care What to do if you have Problems For any increased pain, shortness of breath, bleeding, nausea or vomiting, chestpain, or any unexpected problems, contact your Primary Care Provider. Call [facility] ([phone]) or report tothe closest Emergency Room. Call 911 if necessary. 05/15/24 0013 Cosigner Signature (if applicable): CC: REED MIXER HELPER-C Naina Da Silva ~ Signed [facility]03-26-2025 Radiology Diagnostic study note [facility] Imaging Services [address] [place], [place] [id number] Chest 1 View (Portable) MR#: [id number] Acct: [id number] Name: MARION GUTIERREZ Rep #: [id number] : 1995 F 28 From: Jocelyne Strickland MD PCP: REED Sotomayor, MIXER HELPER-C Status: PRE ER Study:Chest 1 View (Portable) Date of Exam: 05/14/24 Exam# [id number] Ordering Dr: Provider ,Ed P. PROCEDURE: CHEST [...] (Portable) IMPRESSION: No Acute Findings. Reading Location: [facility] CC: REED MIXER HELPER-C Naina Da Silva; ED PHYSICIAN PROVIDER ~ Nutrition Specialist: Signed [facility]03-20-2025 Discharge summary [facility] Medical Records Department [address] [place] [address] Emergency Department Summary 05/08/24 MR#: [id number] Acct: [id number] Name: MARION GUTIERREZ Rep #:[id number] : 1995 28 From: Stan Lin DO PCP: REED Sotomayor, MIXER HELPER-C Statu s:REG ER Location: ED HPI History [...] pressure further. Patient denies recent sick contacts. [facility] Medical History Alcohol use Picking own [...] lauroxil 441 mg/1.6 441 mg IM .COMPLEX [facility] 12/18/22 10/23/23 History mL suspension, ext.rel. [...] Patient follow commands that she was at [facility] years 2024 Skin: Warm, dry, intact [...] % (Auto) 58.1 Lymph % (Auto) 30.5 [place] % (Auto) 10.3 H Eos % (Auto) [...] Clarity Clear Urine pH 7.0 Ur Specific [place] 1.005 Urine Protein 15 H Urine Glucose [...] abdominopelvic finding. 2. Moderate hepatomegaly. Reading Location: [facility] Discharge Plan Triage Chief Complaint: Nausea/Vomiting [...] Naina Da Silva Referrals: Naina Da Silva, MIXER HELPER-C [Primary Care Provider] - Activity Restrictions/Additional Instructions: Follow-up your doctor in outpatient setting. Return with worsening symptoms or concerns. Your CT today did not show anything surgical. Use the prescriptions are sent to your pharmacy as prescribed. Print Language: Wallisian Disposition Disposition: Home, Self Care What to do if you have Problems For any increased pain, shortness of breath, bleeding, nausea or vomiting, chestpain, or any unexpected problems, contact your Primary Care Provider. Call [facility] ([phone]) or report tothe closest Emergency Room. Call 911 if necessary. 05/08/24 5455 Cosigner Signature (if applicable): CC: REED MIXER HELPER-C Naina Da Silva ~ Signed [facility]03-20-2025 Radiology Diagnostic study note [facility] Imaging Services [address] [place], [place] [id number] Abdomen/Pelvis W IV Cont ONLY MR#: [id number] Acct: [id number] Name: MARION GUTIERRZE Rep #: [id number] : 1995 F 28 From: Jocelyne Strickland MD PCP: REED Sotomayor, MIXER HELPER-C Status: REG ER Study:Abdomen/Pelvis W IV Cont ONLY Date of E xam: 05/08/24 Exam# [id number] Ordering Dr: Loreto Lin DO PROCEDURE: ABDOMEN/PELVIS W IV CONT [...] abdominopelvic finding. 2. Moderate hepatomegaly. Reading Location: [facility] CC: [facility] Da Silva; Dr. Stan Lin DO ~ Nutrition Specialist: Signed [facility]03-20-2025 Discharge summary Author Stan Lin [facility] Note Date/Time May 08, 2024 5:1 7pm [facility] Medical Records Department [address] [place] [address] Emergency Department Summary 05/08/24 MR#: [id number] Acct: [id number] Name: MARION GUTIERREZ Rep #:[id number] : 1995 28 From: Stan Lin DO PCP: Naina Da Silva Kimi, MIXER HELPER-C Statu s:REG ER Location: ED HPI History [...] pressure further. Patient denies recent sick contacts. [facility] Medical History Alcohol use Picking own [...] lauroxil 441 mg/1.6 441 mg IM .COMPLEX [facility] 12/18/22 10/23/23 History mL suspension, ext.rel. [...] Patient follow commands that she was at [facility] years 2024 Skin: Warm, dry, intact [...] % (Auto) 58.1 Lymph % (Auto) 30.5 [place] % (Auto) 10.3 H Eos % (Auto) [...] Clarity Clear Urine pH 7.0 Ur Specific [place] 1.005 Urine Protein 15 H Urine Glucose [...] abdominopelvic finding. 2. Moderate hepatomegaly. Reading Location: [facility] Discharge Plan Triage Chief Complaint: Nausea/Vomiting [...] Naina Da Silva Referrals: Naina Da Silva, MIXER HELPER-C [Primary Care Provider] - Activity Restrictions/Additional Instructions: Follow-up your doctor in outpatient setting. Return with worsening symptoms or concerns. Your CT today did not show anything surgical. Use the prescriptions are sent to your pharmacy as prescribed. Print Language: Wallisian Disposition Disposition: Home, Self Care What to do if you have Problems For any increased pain, shortness of breath, bleeding, nausea or vomiting, chestpain, or any unexpected problems, contact your Primary Care Provider. Call [facility] ([phone]) or report to the closest Emergency Room. Call 911 if necessary. 05/08/24 1717 <Electronically signed by Stan Lin DO> Cosigner Signature (if applicable): CC: REED MIXER HELPER-C Naina Da Silva ~ Signed [facility] Work Phone: 1(946) 415-535102-25-2025 Instructions* Patient Instructions* Jey Johnson MD - 04/15/2024 11:39 AM EST Endocrine weight amangement referral given, but if you choose to stay in [place], then you can schedule with OBGYN in this building Continue with the same control for now, making sure not to miss any pills during the month course If it continues to be irregular, please keep us informed documented in this encounterW[facility]25 NoteHNO ID: [id number] Author: JEY JOHNSON MD Service: ? Author Type: Physician Type: Progress Notes Filed: 04/20/2024 15:26 Note Text: Endocrinology and Metabolism [place] Follow up note Chief complaint: Evaluation of [...] Mental Status Change Sea (more content not 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[facility]02-25-2025 History of Present illness Narrative* Jey Johnson MD - 04/15/2024 11:26 AM EST Endocrinology and Metabolism [facility] Follow up note Chief complaint: Evaluation of ovarian hyperandrogenism HPI aMrion Gutierrez is a 28 year old female [...] 07-23-2023 CORTISOL,F/24hr 46 ug/24 hr High 6-42 [facility] CORTISOL,U FREE 16 ug/L Normal Undefined [facility] Metanephrine Frac 24 HR UR on 07-23-2023 Metaneph,UR 24H 68 ug/24 hr Normal 36-209 [facility] Metanephrines,U 24 ug/L Normal Undefined [facility] Normetan,UR 24h 522 ug/24 hr High 95-449 [facility] Normetanephrine 183 ug/L Normal Undefined [facility] Catecholamines, 24 UR on 07-20-2023 Dopamine, Urine 580 ug/L Normal Undefined [facility] Dopamine,U,24HR 957 ug/24 hr High 0-510 [facility] Epineph.,U,24HR 5 ug/24 hr Normal 0-20 [facility] Epinephrine, U 3 ug/L Normal Undefined [facility] Norepin.,U,24HR 134 ug/24 hr Normal 0-135 [facility] Comment on above: Order Comment: Test(s) 545328-Luialdulmui, Urine; - Norepinephrine, Ur; 415112-Hesrnsfv, Urinewas developed and its performance characteristicsdetermined by [employer]. It has notbeen cleared or approvedby the Food and Drug Administration. Performed By: #### L3600.0150 ####[facility] [address] [place], [place],[address] Norepinephrin,U 81 ug/L Normal Undefined [facility] Adrenocorticotropic Hormone on 07-17-2023 ACTH 9.7 pg/mL Normal 7.2-63.3 [facility] CORTISOL SERUM on 07-17-2023 CORTISOL 20.10 ug/dL Normal 3.44-22.45 [facility] Catecholamines, Plasma on 07-17-2023 DOPAMINE <30 Normal 0-48 [facility] EPINEPHRINE <15 Normal 0-62 [facility] NOREPINEPHRINE 429 pg/mL Normal 0-874 [facility] Gastrin, Serum on 07-17-2023 GASTRIN 265 pg/mL High 0-115 [facility] Insulin Level on 07-17-2023 INSULIN,FASTING 93.7 uIU/mL High 2.6-24.9 [facility] Insulin Like Growth Factor on 07-17-2023 SOMATOMEDIN C 122 ng/mL Normal 91-308 [facility] Chromogranin A 206.0 ng/mL Abnormal 0.0-101.8 [facility] Renin/Aldosterone Activity on 07-17-2023 ALD/RENIN RATIO 11.6 Normal 0.0-30.0 [facility] Performed By: #### L3400.1350, L3300.3500, L3300.1800, L3430.0100, L3300.1000, L3300.1050, L3100.4810 ####[facility] [address] [place], [address] ALDOSTERONE,S 45.0 ng/dL High 0.0-30.0 [facility] RENIN, PLASMA 3.873 ng/mL/hr Normal 0.167-5.380 [facility] BUN/CRE 18.1 RATIO Normal 10-20 [facility] CA,Total 9.0 mg/dL Normal 8.5-10.1 [facility] Chloride [Moles/Vol] 110 mmol/L High 98-107 [facility] CO2 [Moles/Vol] 25.0 mmol/L Normal 21.0-32.0 [facility] Creatinine [Mass/Vol] 0.66 mg/dL Normal 0.55-1.02 [facility] Performed By: #### L100.0100, L500.4050, L506.1000, L501.37234, L501.9520, L506.0400, L501.9060 ####[facility] [address] [place], [address] EST GFR - AA 138 mL/min Normal >60 [facility] Performed By: #### L100.0100, L500.4050, L506.1000, L501.27726, L501.9520, L506.0400, L501.9060 ####[facility] [address] [place], [place], [id number] GAP 3 Low 5-15 [facility] GFR/1.73 sq M.predicted among non-blacks MDRD (S/P/Bld) [Vol rate/Area] 114 mL/min/(1.73_m2) Normal>60 [facility] Globulin (S) [Mass/Vol] 3.8 g/dL Normal 2.2-4.2 [facility] Glucose [Mass/Vol] 124 mg/dL High 74-106 [facility] Performed By: #### L100.0100, L500.4050, L506.1000, L501.27123, L501.9520, L506.0400, L501.9060 ####[facility] [address] [place], [place], [id number] Potassium [Moles/Vol] 4.0 mmol/L Normal 3.5-5.1 [facility] Sodium [Moles/Vol] 138 mmol/L Normal 136-145 [facility] T PROT 7.0 g/dL Normal 6.4-8.2 [facility] Urea nitrogen [Mass/Vol] 12 mg/dL Normal 7-18 [facility] Free T3 on 07-05-2023 Free T3 [Mass/Vol] 2.4 pg/mL Normal 2.18-3.98 [facility] Comment on above: Performed By: #### L100.0100, L500.4050, L506.1000, L501.71565, L501.9520, L506.0400, L501.9060 ####[facility] [address] [place], [place], [id number] Amaya on 07-05-2023 LI 0.80 mmol/L Normal 0.60-1.20 [facility] T4 Free Direct on 07-05-2023 T4 FREE DIRECT 1.04 ng/dL Normal 0.76-1.46 [facility] Comment on above: Performed By: #### L100.0100, L500.4050, L506.1000, L501.47404, L501.9520, L506.0400, L501.9060 ####[facility] [address] [place], [place], [address] Thyroid Stim Hormone (TSH) on 07-05-2023 TSH 2.10 uIU/mL Normal 0.358-3.74 [facility] Vitamin D,25 Hydroxy on 07-05-2023 Vitamin D 25-OH 30.3 ng/mL Normal [facility] Latest Ref Rng 12/05/2023 Sex Hormone [...] 24 hr urine free cortisol checked at [facility], along with 24 hr urine metanephrines [...] Moderate Jey Johnson MD Endocrinology Associate Staff [facility] Endocrinology and Metabolism [place] [phone] documented in this encounterWvumedicine [facility]02-25-2025 Telephone encounter Note * Telephone Encounter - Cora Bruce LPN - 04/15/2024 7:34 AM EST Left message for patient with negative results.Cora Bruce LPN [facility]02-25-2025 Miscellaneous Notes* Telephone Encounter - Cora Bruce LPN - 04/15/2024 7:34 AM EST Left message for patient with negative results.Cora Bruce LPN * Telephone Encounter - Maru Galicia PA - 04/15/2024 7:09 AM EST Negative COVID flu RSV documented in this encounterWvumed[facility]02-25-2025 Telephone encounter Note * Telephone Encounter - Maru Galicia PA - 04/15/2024 7:09 AM EST Negative COVID flu RSV [facility] Work Phone: 1(779) 774-473402-24-2025 [id number] (AGENT OF COVID-19) RNA: Not detected INFLUENZA A RNA: Not detected INFLUENZA B RNA: Not detected RESPIRATORY SYNCYTIAL VIRUS (RSV) RNA: Not detectedMount Carmel Health SystemComment on above:Performed By: #### [id number]- [id number] #### [facility] CLIA [id number] [address] [place], [place] [address]102-24-2025 NoteHNO ID: [id number] Author: LINCOLN BALDERAS MD Service: ? Author Type: Physician Type: Progress Notes Filed: 04/14/2024 16:34 Note Text: Patient presents with: Diarrhea: vomiting, cough, chills and fever x 4 days HPI: Feeling sick starting 4 days ago. She recently started amlodipine and reports her advertising sales manager would like her tested for the flu [...] for results if she cannot log into [employer] tomorrow. Continue supportive care for viral illness. She is beyond the therapeutic window for tamiflu. Lincoln Balderas, [facility]02-24-2025 History of Present illness Narrative* Lincoln Balderas MD - 04/14/2024 4:22 PM EST Patient presents with: Diarrhea: vomiting, cough, chills and fever x 4 days HPI: Feeling sick starting 4 days ago. She recently started amlodipine and reports her advertising sales manager would like her tested for the flu [...] for results if she cannot log into [employer] tomorrow. Continue supportive care for viral illness. She is beyond the therapeutic window for tamiflu. Lincoln Balderas MD documented in this encounterWvumed[facility]01-06-2025 History of Present illness Narrative* Carissa Sherwood, RD - 02/25/2024 9:00 AM EST [facility] Medical Nutrition Therapy Visit Type: Virtual: I have discussed the nature of this visit with the patient which will occur via [facility] (Phone, Virtual Visit) and she agrees to proceed with this interaction.I have communicated my name and active licensure. The patient's identity and physical location were verified at the time of this visit. Either the patient or their legal access representative has been informed of the risks [...] Can of spaghetti and meatballs, OR Salad (Sudanese dressing, cheese, fried onions, croutons, wanton strips, [...] relates skipping meals in the past and [facility] Why Weight Program (relates no success [...] Inject 441 mg intramuscularly every 4 weeks. CanDiagTOUCH VERIO TEST STRIPS test strip 1 Each [...] lbs, 10% weight loss = 268 lbs [place] body weight: 61.6 kg (135 lb 12.9 [...] their referring provider for a referral endocrinology corporate human resources manager services. Possible Medications/ Supplements for PCOS and [...] by: Carissa Sherwood RD documented in this encounterWvumedicine [facility]01-06-2025 NoteHNO ID: [id number] Author: CARISSA SHERWOOD RD Service: ? Author Type: Registered Dietitian Type: Progress Notes Filed: 02/25/2024 11:20 Note Text: [facility] Medical Nutrition Therapy Visit Type: Virtual: I have discussed the nature of this visit with the patient which will occur via [facility] (Phone, Virtual Visit) and she agrees to proceed with this interaction.I have communicated my name and active licensure. The patient's identity and physical location were verified at the time of this visit. Either the patient or their legal access representative has been informed of the risks [...] Can of spaghetti and meatballs, OR Salad (Sudanese dressing, cheese, fried onions, croutons, wanton strips, [...] relates skipping meals in the past and [facility] Why Weight Program (relates no success [...] Lab Results Component V (more content not 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[facility]12-06-2024 NoteHNO ID: [id number] Author: LOUIS SCHMIDT APRN.FINISHING AREA SUPERVISOR Service: ? Author Type: Nurse Practitioner Type: [...] Inject 441 mg intramuscularly every 4 weeks. [employer] VERIO TEST STRIPS test strip 1 Each [...] BY MOUTH TWICE DAILY NEEDED FOR CONSTIPATION. CanDiagTOUCH DELICA PLUS LANCET 33 gauge 1 Each [...] two times a day for 7 days. fmdzchuw-lirercpgu-ykxtpzkacmflmi (CORTISPORIN) 3.5-10,000-1 mg/mL-unit/mL-% otic suspension Use 3 [...] ICD9: 382.9, ICD10: H66.92 (primary diagnosis) - RRNOJPIW-OVOLFKEKE-PNUJFIPCU 3.5 MG-10,000 UNIT/ML-1 % EAR DROPS,SUSP 2. Acute otitis externa of left ear, unspecified type - ICD9: 380.10, ICD10: H60.502 - AMOXICILLIN 875 MG TABLET Prescription instructions reviewed (more content not 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[facility]12-06-2024 History of Present illness Narrative* Louis Schmidt APRN.[facility] - 01/25/2024 12:54 PM EST CC: Patient [...] Inject 441 mg intramuscularly every 4 weeks. [employer] VERIO TEST STRIPS test strip 1 Each [...] two times a day for 7 days. rsvcrozo-disrxcyqk-xrkejjrjuafwbn (CORTISPORIN) 3.5-10,000-1 mg/mL-unit/mL-% otic suspension Use 3 [...] ICD9: 382.9, ICD10: H66.92 (primary diagnosis) - EHWWVGEH-PZWUTVDAW-XXBJKUPJS 3.5 MG-10,000 UNIT/ML-1 % EAR DROPS,SUSP 2. Acute otitis externa of left ear, unspecified type - ICD9: 380.10, ICD10: H60.502 - AMOXICILLIN 875 MG TABLET Prescription instructions reviewed with patient as applicable. Potential red flag symptoms discussed with the patient. Reviewed appropriate action plan to take if red flag symptoms occur. Patient agreeable to treatment plan. Louis Schmidt APRN.CNP documented in this encounterWvumedicine [facility]12-06-2024 Telephone encounter Note * Telephone Encounter - Natalee Rodriguez LPN - 01/25/2024 10:48 AM EST Patient given results and verbalized understanding of instructions given.. Natalee Rodriguez LPN [facility]12-06-2024 Miscellaneous Notes* Telephone Encounter - Natalee Rodriguez LPN - 01/25/2024 10:48 AM EST Patient given results and verbalized understanding of instructions given.. Natalee Rodriguez LPN * Telephone Encounter - Mallika Mo APRN.CNP - 01/25/2024 7:11 AM EST Please notify that covid/flu/rsv testing negative. Continue with plan of care as discussed during visit. documented in this encounterWvumedicine [facility] Hospital12-06-2024 Telephone encounter Note * Telephone Encounter - Mallika Mo APRN.CNP - 01/25/2024 7:11 AM EST Please notify that covid/flu/rsv testing negative. Continue with plan of care as discussed during visit. [facility] Work Phone: [phone] 165-339112-05-2024 Instructions* Patient Instructions* Maru Galicia PA - 01/24/2024 2:04 PM EST [...] for a few days. documented in this encounterWvumedicine Harrison [facility] Hospital12-05-2024 NoteHNO ID: [id number] Author: MARU GALICIA PA Service: ? Author Type: Physician Shank Piece Tacker Type: Progress Notes Filed: 01/24/2024 14:08 Note Text: This note was created using Aliriter. Subjective Marion Gutierrez is a 28 year [...] Inject 441 mg intramuscularly every 4 weeks. [employer] VERIO TEST STRIPS test strip 1 Each [...] BY MOUTH TWICE DAILY NEEDED FOR CONSTIPATION. CanDiagTOUCH DELICA PLUS LANCET 33 gauge 1 Each [...] (primary diagnosis) - suspe (more content not 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[facility]12-05-2024 History of Present illness Narrative* Maru Galicia PA - 01/24/2024 2:03 PM EST This note was created using Aliriter. Subjective Marion Gutierrez is a 28 year [...] BY MOUTH TWICE DAILY NEEDED FOR CONSTIPATION. CanDiagTOUCH DELICA PLUS LANCET 33 gauge 1 Each [...] ER evaluation. EDELMIRA Gillespie documented in this encounterWvumedicine Harrison [facility] Hospital11-25-2024 Evaluation note* Diagnosis Onset Date Resolution Status Admit Date Palpitations acute December 2:29pm Syncope acute January 14, 2024 2:29pm Hypertension chronic December 2:29pm [facility] Work Phone: [phone] 482-712311-19-2024 Instructions* Patient Instructions* Jey Johnson MD - 01/08/2024 12:06 PM EST Please taking control pills prescribed Schedule for a dietitian visit for conservative weight loss documented in this encounterWvumedicine Harrison [facility] Hospital11-19-2024 NoteHNO ID: [id number] Author: JEY JOHNSON MD Service: ? Author Type: Physician Type: Progress Notes Filed: 01/09/2024 18:32 Note Text: Endocrinology and Metabolism [facility] Follow up note Chief complaint: Evaluation of [...] Sitting, BP Cuff Siz (more content not 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[facility]11-19-2024 History of Present illness Narrative* Jey Johnson MD - 01/08/2024 12:00 PM EST Endocrinology and Metabolism [facility] Follow up note Chief complaint: Evaluation of [...] 07-23-2023 CORTISOL,F/24hr 46 ug/24 hr High 6-42 [facility] CORTISOL,U FREE 16 ug/L Normal Undefined [facility] Metanephrine Frac 24 HR UR on 07-23-2023 Metaneph,UR 24H 68 ug/24 hr Normal 36-209 [facility] Metanephrines,U 24 ug/L Normal Undefined [facility] Normetan,UR 24h 522 ug/24 hr High 95-449 [facility] Normetanephrine 183 ug/L Normal Undefined [facility] Catecholamines, 24 UR on 07-20-2023 Dopamine, Urine 580 ug/L Normal Undefined [facility] Dopamine,U,24HR 957 ug/24 hr High 0-510 [facility] Epineph.,U,24HR 5 ug/24 hr Normal 0-20 [facility] Epinephrine, U 3 ug/L Normal Undefined [facility] Norepin.,U,24HR 134 ug/24 hr Normal 0-135 [facility] Comment on above: Order Comment: Test(s) 395682-Bzbchihdytd, Urine; - Norepinephrine, Ur; 896756-Qpzjezah, Urinewas developed and its performance characteristicsdetermined by [employer]. It has notbeen cleared or approvedby the Food and Drug Administration. Performed By: #### L3600.0150 ####[facility] [address] [place], [place],[address] Norepinephrin,U 81 ug/L Normal Undefined [facility] Adrenocorticotropic Hormone on 07-17-2023 ACTH 9.7 pg/mL Normal 7.2-63.3 [facility] CORTISOL SERUM on 07-17-2023 CORTISOL 20.10 ug/dL Normal 3.44-22.45 [facility] Catecholamines, Plasma on 07-17-2023 DOPAMINE <30 Normal 0-48 [facility] EPINEPHRINE <15 Normal 0-62 [facility] NOREPINEPHRINE 429 pg/mL Normal 0-874 [facility] Gastrin, Serum on 07-17-2023 GASTRIN 265 pg/mL High 0-115 [facility] Insulin Level on 07-17-2023 INSULIN,FASTING 93.7 uIU/mL High 2.6-24.9 [facility] Insulin Like Growth Factor on 07-17-2023 SOMATOMEDIN C 122 ng/mL Normal 91-308 [facility] Chromogranin A 206.0 ng/mL Abnormal 0.0-101.8 [facility] Renin/Aldosterone Activity on 07-17-2023 ALD/RENIN RATIO 11.6 Normal 0.0-30.0 [facility] Performed By: #### L3400.1350, L3300.3500, L3300.1800, L3430.0100, L3300.1000, L3300.1050, L3100.4810 ####[facility] [address] [place], [place], [id number] ALDOSTERONE,S 45.0 ng/dL High 0.0-30.0 [facility] RENIN, PLASMA 3.873 ng/mL/hr Normal 0.167-5.380 [facility] BUN/CRE 18.1 RATIO Normal 10-20 [facility] CA,Total 9.0 mg/dL Normal 8.5-10.1 [facility] Chloride [Moles/Vol] 110 mmol/L High 98-107 [facility] CO2 [Moles/Vol] 25.0 mmol/L Normal 21.0-32.0 [facility] Creatinine [Mass/Vol] 0.66 mg/dL Normal 0.55-1.02 [facility] Performed By: #### L100.0100, L500.4050, L506.1000, L501.87554, L501.9520, L506.0400, L501.9060 ####[facility] [address] [place], [place], [id number] EST GFR - AA 138 mL/min Normal >60 [facility] Performed By: #### L100.0100, L500.4050, L506.1000, L501.13722, L501.9520, L506.0400, L501.9060 ####[facility] [address] [place], [place], [id number] GAP 3 Low 5-15 [facility] GFR/1.73 sq M.predicted among non-blacks MDRD (S/P/Bld) [Vol rate/Area] 114 mL/min/(1.73_m2) Normal>60 [facility] Globulin (S) [Mass/Vol] 3.8 g/dL Normal 2.2-4.2 [facility] Glucose [Mass/Vol] 124 mg/dL High 74-106 [facility] Performed By: #### L100.0100, L500.4050, L506.1000, L501.74547, L501.9520, L506.0400, L501.9060 ####[facility] [address] [place], [address] Potassium [Moles/Vol] 4.0 mmol/L Normal 3.5-5.1 [facility] Sodium [Moles/Vol] 138 mmol/L Normal 136-145 [facility] T PROT 7.0 g/dL Normal 6.4-8.2 [facility] Urea nitrogen [Mass/Vol] 12 mg/dL Normal 7-18 [facility] Free T3 on 07-05-2023 Free T3 [Mass/Vol] 2.4 pg/mL Normal 2.18-3.98 [facility] Comment on above: Performed By: #### L100.0100, L500.4050, L506.1000, L501.22182, L501.9520, L506.0400, L501.9060 ####[facility] [address] [place], [address] Amaya on 07-05-2023 LI 0.80 mmol/L Normal 0.60-1.20 [facility] T4 Free Direct on 07-05-2023 T4 FREE DIRECT 1.04 ng/dL Normal 0.76-1.46 [facility] Comment on above: Performed By: #### L100.0100, L500.4050, L506.1000, L501.76783, L501.9520, L506.0400, L501.9060 ####[facility] [address] [place], [address] Thyroid Stim Hormone (TSH) on 07-05-2023 TSH 2.10 uIU/mL Normal 0.358-3.74 [facility] Vitamin D,25 Hydroxy on 07-05-2023 Vitamin D 25-OH 30.3 ng/mL Normal [facility] Latest Ref Rng 12/05/2023 Sex Hormone [...] 24 hr urine free cortisol checked at [facility], along with 24 hr urine metanephrines [...] Jey Johnson MD Endocrinology Associate Staff [facility] Endocrinology and Metabolism [facility] [phone] documented in this encounterWvumedicine Harrison [facility] Hospital11-11-2024 History of Present illness Narrative* Alisson Wolfdaisyloreto, MIXER HELPER - 12/31/2023 2:00 PM EST Images from [...] liver Migraines (CMS/HCC) ER 08/29/21 for MIGRAINE [facility] Polycystic ovarian disease Suicide attempt (CMS/HCC) [...] Morbid obesity with BMI of 45.0-49.9, adult ([facility]) (Primary) Diet, exercise, weight loss Pt has been fully educated on their diagnosis, treatment options, follow up plan, and return instructions. documented in this encounterDeaconess Incarnate Word Health SystemZpxgfxxdgw17-58-2558 Telephone encounter Note* Telephone Encounter - Mane Bragg RN - 12/19/2023 12:19 PM EDT Signed record release received from [facility] requesting previous OV notes from Dr. Johnson. Pt had 1 OV in 10/2023. This was faxed electronically through [facility]. Mane Bragg RN December 19, 2023 12:20 PM [facility]10-30-2024 Miscellaneous Notes* Telephone Encounter - Mane Bragg RN - 12/19/2023 12:19 PM EDT Signed record release received from [facility] requesting previous OV notes from Dr. Johnson. Pt had 1 OV in 10/2023. This was faxed electronically through [facility]. Mane Bragg RN December 19, 2023 12:20 PM documented in this encounterWvumedicine [facility] Hospital10-28-2024 Telephone encounter Note * Telephone Encounter - Rhonda Duong - 12/17/2023 9:02 AM EDT Pt's mom called and schedule in office appt for 12/20/23 [facility] SystemHapjqhqahs20-64-2614 Miscellaneous Notes* Telephone Encounter - Rhonda Duong [...] injection. Last dispensed 11/19/23. documented in this encounterDeaconess Incarnate Word Health SystemBrlzddwjnu46-85-7193 Telephone encounter Note* Telephone Encounter - Rhonda Duong - 12/12/2023 10:48 AM EDT LM today- on patient's cell ph#-12/12/23-for pt to call back and schedule an in office appt [facility] SystemOrhtnfrdgh90-24-1600 Telephone encounter Note* Telephone Encounter - Neli Russell MA - 12/06/2023 10:51 AM EDT Chart reviewed. Pt due for appt. Please call to schedule prior to next injection. Last dispensed 11/19/23. [facility] SystemLydtqchxpa11-01-1681 History of Present illness Narrative* Louis Schmidt APRN.CNP - 11/27/2023 7:51 PM EDT Patient came [...] have any testing available. documented in this encounterWvumedicine [facility] Hospital10-08-2024 NoteHNO ID: [id number] Author: LOUIS SCHMIDT APRN.FISH Service: ? Author [...] as we do not have any testing available.[facility] 10-26-2023 Instructions* Patient Instructions* Jey [...] the labs are drawn documented in this encounterWvumedicine Harrison Community Hospital09-06-2024 NoteHNO ID: [id number] Author: JEY JOHNSON MD Service: ? Author Type: Physician Type: Progress Notes Filed: 10/26/2023 18:35 Note Text: Endocrinology and Metabolism [facility] Initial Clinic Visit Note REASON FOR CONSULT: [...] Pollen Extracts Hives, Intolerance (more content not 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[facility]09-06-2024 History of Present illness Narrative* Jey Johnson MD - 10/26/2023 3:31 PM EDT Endocrinology and Metabolism [facility] Initial Clinic Visit Note REASON FOR CONSULT: [...] 07-23-2023 CORTISOL,F/24hr 46 ug/24 hr High 6-42 [facility] CORTISOL,U FREE 16 ug/L Normal Undefined [facility] Metanephrine Frac 24 HR UR on 07-23-2023 Metaneph,UR 24H 68 ug/24 hr Normal 36-209 [facility] Metanephrines,U 24 ug/L Normal Undefined [facility] Normetan,UR 24h 522 ug/24 hr High 95-449 [facility] Normetanephrine 183 ug/L Normal Undefined [facility] Catecholamines, 24 UR on 07-20-2023 Dopamine, Urine 580 ug/L Normal Undefined [facility] Dopamine,U,24HR 957 ug/24 hr High 0-510 [facility] Epineph.,U,24HR 5 ug/24 hr Normal 0-20 [facility] Epinephrine, U 3 ug/L Normal Undefined [facility] Norepin.,U,24HR 134 ug/24 hr Normal 0-135 [facility] Comment on above: Order Comment: Test(s) 235185-Oiqqrvybgzo, Urine; - Norepinephrine, Ur; 165613-Qrnvurin, Urinewas developed and its performance characteristicsdetermined by [employer]. It has notbeen cleared or approvedby the Food and Drug Administration. Performed By: #### L3600.0150 ####[facility] [address] [place], [place],[address] Norepinephrin,U 81 ug/L Normal Undefined [facility] Adrenocorticotropic Hormone on 07-17-2023 ACTH 9.7 pg/mL Normal 7.2-63.3 [facility] CORTISOL SERUM on 07-17-2023 CORTISOL 20.10 ug/dL Normal 3.44-22.45 [facility] Catecholamines, Plasma on 07-17-2023 DOPAMINE <30 Normal 0-48 [facility] EPINEPHRINE <15 Normal 0-62 [facility] NOREPINEPHRINE 429 pg/mL Normal 0-874 [facility] Gastrin, Serum on 07-17-2023 GASTRIN 265 pg/mL High 0-115 [facility] Insulin Level on 07-17-2023 INSULIN,FASTING 93.7 uIU/mL High 2.6-24.9 [facility] Insulin Like Growth Factor on 07-17-2023 SOMATOMEDIN C 122 ng/mL Normal 91-308 [facility] Chromogranin A 206.0 ng/mL Abnormal 0.0-101.8 [facility] Renin/Aldosterone Activity on 07-17-2023 ALD/RENIN RATIO 11.6 Normal 0.0-30.0 [facility] Performed By: #### L3400.1350, L3300.3500, L3300.1800, L3430.0100, L3300.1000, L3300.1050, L3100.4810 ####[facility] [address] [place], [address] ALDOSTERONE,S 45.0 ng/dL High 0.0-30.0 [facility] RENIN, PLASMA 3.873 ng/mL/hr Normal 0.167-5.380 [facility] BUN/CRE 18.1 RATIO Normal 10-20 [facility] CA,Total 9.0 mg/dL Normal 8.5-10.1 [facility] Chloride [Moles/Vol] 110 mmol/L High 98-107 [facility] CO2 [Moles/Vol] 25.0 mmol/L Normal 21.0-32.0 [facility] Creatinine [Mass/Vol] 0.66 mg/dL Normal 0.55-1.02 [facility] Performed By: #### L100.0100, L500.4050, L506.1000, L501.00375, L501.9520, L506.0400, L501.9060 ####[facility] [address] [place], [place], [address] EST GFR - AA 138 mL/min Normal >60 [facility] Performed By: #### L100.0100, L500.4050, L506.1000, L501.33496, L501.9520, L506.0400, L501.9060 ####[facility] [address] [place], [address] GAP 3 Low 5-15 [facility] GFR/1.73 sq M.predicted among non-blacks MDRD (S/P/Bld) [Vol rate/Area] 114 mL/min/(1.73_m2) Normal>60 [facility] Globulin (S) [Mass/Vol] 3.8 g/dL Normal 2.2-4.2 [facility] Glucose [Mass/Vol] 124 mg/dL High 74-106 [facility] Performed By: #### L100.0100, L500.4050, L506.1000, L501.30282, L501.9520, L506.0400, L501.9060 ####[facility] [address] [place], [address] Potassium [Moles/Vol] 4.0 mmol/L Normal 3.5-5.1 [facility] Sodium [Moles/Vol] 138 mmol/L Normal 136-145 [facility] T PROT 7.0 g/dL Normal 6.4-8.2 [facility] Urea nitrogen [Mass/Vol] 12 mg/dL Normal 7-18 [facility] Free T3 on 07-05-2023 Free T3 [Mass/Vol] 2.4 pg/mL Normal 2.18-3.98 [facility] Comment on above: Performed By: #### L100.0100, L500.4050, L506.1000, L501.41910, L501.9520, L506.0400, L501.9060 ####[facility] [address] [place], [address] Amaya on 07-05-2023 LI 0.80 mmol/L Normal 0.60-1.20 [facility] T4 Free Direct on 07-05-2023 T4 FREE DIRECT 1.04 ng/dL Normal 0.76-1.46 [facility] Comment on above: Performed By: #### L100.0100, L500.4050, L506.1000, L501.05469, L501.9520, L506.0400, L501.9060 ####[facility] [address] [place], [address] Thyroid Stim Hormone (TSH) on 07-05-2023 TSH 2.10 uIU/mL Normal 0.358-3.74 [facility] Vitamin D,25 Hydroxy on 07-05-2023 Vitamin D 25-OH 30.3 ng/mL Normal [facility] ASSESSMENT AND PLAN Patient has autism and Irregular cycles/amenorrhea: Check for total, bioavailable and free testosterone, SHBG, DHEA, androstenedione, prolactin, TSH, free T4, estrogen, FSH, LH Due to dizziness/lightheadedness, will check for cortisol and ACTH once again. These labs checked in 06/2023 at [facility] were normal, but her GI referral [...] 24 hr urine free cortisol checked at [facility], along with 24 hr urine metanephrines [...] discussed in detail again - Advised on intermediate accountant risks of PCOS including increased risk for endometrial cancer, diabetes, CAD, hyperlipidemia Medical Decision Making: Problems: Moderate: New problem with uncertain prognosis Data: Unique test result(s) reviewed: 3+ Unique test(s) ordered: 3+ Independent interpretation of test from other physician/QHCP Medical Decision Making Level: 4 - Moderate The patient should follow-up in 2 months. Jey Johnson MD Endocrinology Associate Staff [facility] Endocrinology and Metabolism [place] [phone] documented in this encounterWvumedicine [facility]09-04-2024 [facility]07-25-2024 History of Present illness Narrative* Lincoln Balderas [...] resolved. Lincoln Balderas MD documented in this encounterWvumedicine [facility] Hospital03-19-2024 History of Present illness Narrative* Louis Schmidt APRN.FINISHING AREA SUPERVISOR - 05/08/2023 2:29 PM EDT Patient came [...] okay with this plan. documented in this encounterWvumedicine [facility] Hospital02-17-2024 Discharge summary Author Ozzy Bright [facility] April 08, 2023 6:39am Note Date/Time April 07, 2023 4:27pm [facility] Medical Records Department [address] [place] [address] Emergency Department Summary 04/07/23 MR#: [id number] Acct: [id number] Name: MARION GUTIERREZ Rep #:[id number] : 1995 27 From: Lianet HICKYE PCP: HORTENSIA Sotomayor Status:REG ER Location: ED [...] substance use, visual/tactile hallucinations, and homicidal thoughts. [facility] <EDELMIRA White - Last Filed: 04/07/23 20:30> [facility] Medical History Anxiety Arthritis Autism Back pain [...] 94 Oxygen Delivery Method Room Air MDM <Lianet Worrell PA - Last Filed: 04/07/23 20:30> MDM MDM Narrative Medical decision making narrative: [...] % (Auto) 66.2 Lymph % (Auto) 24.6 Kern % (Auto) 7.3 Eos % (Auto) 1.0 [...] Kamara, DO - Last Filed: 04/07/23 21:29> [facility] Lab Data Labs: Laboratory Results - last 24 hr 04/07/23 04/07/23 16:55 18:10 WBC 9.3 RBC 4.67 Hgb 12.7 Hct 40.4 MCV 86.5 MCH 27.2 MCHC 31.4 L RDW Std Deviation 43.9 RDW Coeff of Delmy 13.9 Plt Count 340 MPV 9.0 Immature Gran % (Auto) 0.400 Neut % (Auto) 66.2 Lymph % (Auto) 24.6 Kern % (Auto) 7.3 Eos % (Auto) 1.0 [...] management plan. This note was generated with [employer] dictation software. It may contain incorrectwords, spelling, [...] Silva NP Referrals: Naina Da Silva NP, MIXER HELPER-C [Primary Care Provider] - What to do if you have Problems For any increased pain, shortness of breath, bleeding, nausea or vomiting, chestpain, or any unexpected problems, contact your Primary Care Provider. Call [facility] ([phone]) or report to the closest Emergency Room. Call 911 if necessary. 04/07/232029 <Electronically signed by Lianet HICKEY> Cosigner Signature (if applicable): 04/07/232128 <Electronically signed by Bridger Kamara DO> CC: HORTENSIA Da Silva ~ Signed [facility] Work Phone: 1(591) 305-159412-11-2023 Discharge summary Author Domitila Carr [facility] January 29, 2023 2:25pm Note Date/Time January 29, 2023 2:25pm [facility] Physical Therapy [facility] [address] [place] [address] [address] [place] [address] / REHABILITATION SERVICES DISCHARGE SUMMARY MR#: [id number] Acct: [id number] Name: MARION GUTIERREZ Rep #: [id number] : 1995 27 From: Domitila Carr MP T Referring Dr.: Dr. Laura Li MD Status: REG R Insurance: [facility] SELF PAY [employer]URANCE Discharge Summary D/C [...] please feel free to call me at [phone]. Thank you for the referral of thispatient. Sincerely, WALLY Hale Balance/Gait/Functional tests Balance/Special Test Scores Lower Extremity Functional Score: 75 Improvement % Improvement: 100 <Electronically signed by Domitila Carr MPT> 01/29/23 1427 CC: HORTENSIA Da Silva; Dr. Laura Li MD ~ Signed [facility] Work Phone: 1(650) 523-651311-01-2023 Discharge summary Author Laura Li [facility] December 20, 2022 11:29am Note Date/Time December 20, 2022 1 1:28am [facility] Medical Records Department [address] [place] [address] Discharge Summary 12/20/22 1127 MR#: [id number] Acct: [id number] Name: MARION GUTIERREZ Rep #:[id number] : 1995 27 From: Laura Li MD PCP: [facility] atus:ADM IN [facility] Providers Date of Admission: 12/19/22 Date of Discharge: 12/20/22 [facility] Care Physician: [facility] Reason For Visit: SYNCOPE Diagnosis Discharge Diagnosis [...] % (Auto) 55.7, Lymph % (Auto) 34.0, Kern% (Auto) 7.5, Eos % (Auto) 2.0, Baso [...] Attending Provider: Laura Li [facility] Consult[facility] Providers: Montana Wisdom Discharge Orders/Prescriptions [...] PO DAILY [facility] - Within 1 Week Disposition Disposition (needs filled in before D/C Order can be placed): Home, Self Care Charges/Coding Visit Charges Inpatient E&M: 20870 Disch Hosp >30min 12/20/22 1129 <Electronically signed by Laura Li MD> Cosigner Signature (if applicable): CC: Dr. Laura Li MD; [facility]~ Signed [facility] Work Phone: 1(532) 448-674611-01-2023 Progress note Author Laura Li [facility] December 20, 2022 11:27am Note Date/Time December 20, 2022 8 :26am [facility] Medical Records Department [address] [place] [address] Progress Note - Hospitalist 12/20/22825 MR#: [id number] Acct: [id number] Name: MARION GUTIERREZ Rep #:[id number] : 1995 27 From: Laura Li MD PCP: [facility] St atus:ADM IN Location: [place] [address] Reason for Visit Reason for Visit: Diagnoses [...] % (Auto) 55.7, Lymph % (Auto) 34.0, Kern% (Auto) 7.5, Eos % (Auto) 2.0, Baso [...] limited. Ordering Physician: Montana Wisdom Referring Physician: [facility] Performed By: Kaur Kinsey RDCS, RVT Physical [...] 40 Minutes Charges/Coding Visit Charges Inpatient E&M: 65470 Subs Hosp L2 12/20/22 1127 <Electronically signed by Laura Li MD> Cosigner Signature (if applicable): CC: ~ Signed [facility] Work Phone: 1(404) 301-450210-31-2023 Progress note Author Laura Li [facility] December 19, 2022 2:11pm Note Date/Time December 19, 2022 1 1:20am [facility] Medical Records Department [address] [place] [address] Progress Note - Hospitalist 12/19/22 1120 MR#: [id number] Acct: [id number] Name: MARION GUTIERREZ Rep #:[id number] : 1995 From: Laura Li MD PCP: [facility] St atus:ADM [place]RET Location: [place] [address] Reason for Visit Reason for Visit: Diagnoses [...] 73.9 H, Lymph % (Auto) 18.1 L, Kern % (Auto) 6.4, Eos % (Auto) 0.7, [...] Troponin I High Sens 3 12/18/22 16:43: Amaya 0.60 Radiography Diagnostic Testing: Radiology Impression Brain [...] limited. Ordering Physician: Montana Wisdom Referring Physician: [facility] Performed By: Tio, Kaur, RDCS, RVT Physical Exam Narrative GENERAL: cooperative [...] 40 Minutes Charges/Coding Visit Charges Inpatient E&M: 79840 Subs Hosp L2 12/19/22 1411 <Electronically signed by Laura Li MD> Cosigner Signature (if applicable): CC: ~ Signed [facility] Work Phone: 1(744) 949-290610-30-2023 History and physical note Author Montana Wisdom [facility] December 18, 2022 8:01pm Note Date/Time December 18, 2022 7 :56pm [facility] Medical Records Department [address] [place] [address] [place] [address] H&P Exam - Hospitalist 12/18/221945 MR#: [id number] Acct: [id number] Name: MARION GUTIERREZ Rep #:[id number] : 1995 27 From: Montana Wisdom DO [facility] at[facility]ADM [place] Location: [facility] [id number] HPI - General General Date of Admission: 12/18/22 Date of Service: 12/18/22 Chief Complaint: Lightheadedness, syncope HPI Narrative MARION GUTIERREZ, is a 27 F who presents to the emergency room at [facility] with complaints of multiple episodes of [...] I talked to her primary caregiver at [facility] today, she was placed on medication for polycystic ovarian syndrome but her blood sugar went too low and they had to take her off medication. Her serum insulin level was also low according to her primary caregiver at [facility]. The emergency room physician's assistant finance director [...] good narrative as to what is happening. [facility] Medical History (Updated 12/18/22 @ 19:31 by [...] 73.9 H, Lymph % (Auto) 18.1 L, Kern % (Auto) 6.4, Eos % (Auto) 0.7, [...] Troponin I High Sens 3 12/18/22 16:43: Amaya 0.[address] 12/18/22 14:38 [...] 40 minutes Charges/Coding Visit Charges Inpatient E&M: 31848 Init Hosp L1 12/18/222000 <Electronically signed by Montana Wisdom DO> Cosigner Signature (if applicable): CC: Dr. [place] Wisdom, ; [facility]~ Signed [facility] Work Phone: 1(522) 673-418710-30-2023 Discharge summary Author Sarah Purdy [facility] December 18, 2022 6:00pm Note Date/Time December 18, 2022 2 :38pm [facility] Medical Records Department [facility] [place] [address] Emergency Department Summary 12/18/22 MR#: [id number] Acct: [id number] Name: MARION GUTIERREZ Rep #:[id number] : 1995 27 From: Presley Ibarra MIXER HELPERJovanna [facility] St atus:ADM [place] Location: [place] [address] <Statement entered by Sarah Purdy MD - [...] a headache. She is here with a home health clinician who has seen her have some dizzy [...] blood clots in the legs or lungs. [facility] Medical History Anxiety Arthritis Autism Back pain [...] 73.9 H Lymph % (Auto) 18.1 L Kern % (Auto) 6.4 Eos % (Auto) 0.7 [...] Normal sinus rhythm, rate of 89 bpm, WA 164 ms, QRS duration 80 ms, no [...] MOUTH TWICE A DAY Primary Care Provider: Daniel Clayton Referrals: [facility] Daniel Betancur [Primary Care Provider] - Disposition Disposition: Acute Care [facility] What to do if you have Problems For any increased pain, shortness of breath, bleeding, nausea or vomiting, chestpain, or any unexpected problems, contact your Primary Care Provider. Call [facility] ([phone]) or report to the closest Emergency Room. Call 911 if necessary. 12/18/22 1649 <Electronically signed by Presley BAZAN> Cosigner Signature (if applicable): 12/18/22 1800 <Electronically signed by Sarah Purdy MD> CC: [facility] ~ Signed [facility] Work Phone: 1(298) 673-302610-21-2023 Discharge summary Author [facility] December 09, 2022 9:52pm Note Date/Time December 09, 2022 8 :06pm [facility] Medical Records Department [address] [place] [address] Emergency Department Summary 12/09/22 MR#: [id number] Acct: [id number] Name: MARION GUTIERREZ Rep #:[id number] : 1995 27 From: Rodolfo Das MD PCP: [facility] St atus:REG ER Location: ED HPI History [...] that she complained of headaches as well. [facility] Medical History Anxiety Arthritis Autism Back [...] (Auto) 71.2 H Lymph % (Auto) 20.4 Kern % (Auto) 6.9 Eos % (Auto) 0.7 [...] Sl. Cloudy Urine pH 6.0 Ur Specific [place] 1.025 Urine Protein 30 H Urine Glucose [...] MOUTH TWICE A DAY [facility] [Primary Care Provider] - 3-5 Days if not improving Activity Restrictions/Additional Instructions: Continue your Reglan as needed. Small amounts of water to keep yourself hydrated. Disposition Disposition: Home, Self Care What to do if you have Problems For any increased pain, shortness of breath, bleeding, nausea or vomiting, chestpain, or any unexpected problems, contact your Primary Care Provider. Call [facility] ([phone]) or report to the closest Emergency Room. Call 911 if necessary. 12/09/222151 <Electronically signed by Rodolfo Das MD> Cosigner Signature (if applicable): CC: [facility] ~ Signed [facility] Work Phone: 1(594) 982-808008-15-2023 NotePap Smear Specimen AdequacyAugust 2022 10:31amComment.Satisfactory for evaluation. No endocervical component is identified.[facility] A#[id number] Hospitals Samaritan Medical Center on above:Satisfactory for evaluation. No endocervical component is identified. 10-03-2022 NotePap Smear Specimen AdequacyAugust 2022 10:31amComment. Satisfactory for evaluation. No endocervical component is identified.[facility] A#[id number] Hospitals Samaritan Medical Center on above:Satisfactory for evaluation. No endocervical component is identified.10-03-2022 NotePap Smear Specimen AdequacyAugust 2022 10:31amComment.Satisfactory for evaluation. No endocervical component is identified.[facility] A#[id number] Hospitals Samaritan Medical Center on above:Satisfactory for evaluation. No endocervical component is identified.10-03-2022 NotePap Smear Specimen AdequacyAugust 2022 10:31amComment.Satisfactory for evaluation. No endocervical component is identified.[facility] A#[id number] Hospitals Samaritan Medical Center on above:Satisfactory for evaluation. No endocervical component is identified. 10-03-2022 NotePap Smear Specimen AdequacyAugust 2022 10:31amComment. Satisfactory for evaluation. No endocervical component is identified.[facility] A#[id number] Hospitals Samaritan Medical Center on above:Satisfactory for evaluation. No endocervical component is identified.10-03-2022 NotePap Smear Specimen AdequacyAugust 2022 10:31amComment.Satisfactory for evaluation. No endocervical component is identified.[facility] A#[id number] Hospitals Samaritan Medical Center on above:Satisfactory for evaluation. No endocervical component is identified.08-15-[address] Etienne [facility] August 15, 2022 10:11pm Note Date/Time August 15, 2022 8:19 pm [facility] Medical Records Department [address] [place] [address] Emergency Department Summary 08/15/22 MR#: [id number] Acct: [id number] Name: MARION GUTIERREZ Rep #:[id number] : 1995 26 From: David Etienne DO [facility] St atus:REG ER Location: ED [...] unremarkable. Urinalysis negative for infection. hCG negative. Amaya level is normal. Patient feeling better on [...] % (Auto) 59.6 Lymph % (Auto) 28.3 Kern % (Auto) 9.2 Eos % (Auto) 1.8 [...] Sl. Cloudy Urine pH 6.0 Ur Specific [place] 1.020 Urine Protein 15 H Urine Glucose (UA) Normal Urine Ketones Negative Urine Occult Blood Negative Urine Nitrite Negative Urine Bilirubin Negative Urine Urobilinogen Normal Ur Leukocyte Esterase 25 H Urine RBC 0 SEEN Urine WBC 0-5 SEEN Ur Squamous Epith Cells 0-5 SEEN Urine Bacteria 1+ Urine Mucus 0 SEEN Amaya 08/15/22 08/15/22 19:57 19:57 WBC RBC Hgb Hct MCV MCH MCHC RDW Std Deviation RDW Coeff of Delmy Plt Count MPV Immature Gran % (Auto) Neut % (Auto) Lymph % (Auto) Kern % (Auto) Eos % (Auto) Baso % [...] Color Urine Clarity Urine pH Ur Specific [place] Urine Protein Urine Glucose (UA) Urine Ketones Urine Occult Blood Urine Nitrite Urine Bilirubin Urine Urobilinogen Ur Leukocyte Esterase Urine RBC Urine WBC Ur Squamous Epith Cells Urine Bacteria Urine Mucus Amaya 0.60 Discharge Plan Triage Chief Complaint: Abd [...] pain) Qty: 60 1RF [facility] [[facility] Provider] - Disposition Disposition: Home, Self Care What to do if you have Problems For any increased pain, shortness of breath, bleeding, nausea or vomiting, chestpain, or any unexpected problems, contact your Primary Care Provider. Call [facility] ([phone]) or report to the closest Emergency Room. Call 911 if necessary. 08/15/222210 <Electronically signed by David Etienne DO> Cosigner Signature (if applicable): CC: [facility] ~ Signed [facility] Work Phone: 1(219) 595-454706-20-2023 Procedure [facility] 08-08-2022 Procedure [facility]06-20-2023 Procedure note [facility]06-20-2023 Procedure [facility] 12-12-2021 History of Present illness Narrative* [...] dentist. Lincoln Balderas MD [facility] History of Present illness Narrative* Lincoln Balderas MD - 09/03/2021 10:42 AM EDT Express Care Triage Note: Patient presents to the express care with complaint of nausea, vomiting, and dizziness. She has been unable to eat for the last 5 days and has been unable to drink since yesterday. Patient is alert, flat affect, sitting in a wheelchair, and accompanied by her mother. ER treatment recommended for dehydration. documented in this encounterW[facility]10-26-2021 Hospital Discharge instructions Patient Education 12/14/2020 20:33:17 [...] the uterine lining, diabetes, and heart disease. 8736-0111 [employer]. [address] [place] [address], [place] [address]. All rights reserved. This information is not [...] month. The bleeding may be heavier or surgical oncologist than normal. If you have heavy bleeding [...] or shortness of breath Dizziness or fainting 9410-3989 [employer]. [address] [place] [address], [place] [address]. All rights reserved. This information is not intended as a substitute for professional medical care. Always follow yourhealthcare professional's instructions. Follow Up Care 12/14/2020 18:23:00 With:[facility] Address: [address] [place] [address] [id number] When:1-2 days [facility] 11-18-2020 History of Present illness Narrative* Therese [...] 07, 2020 9:03 AM documented in this encounterWvumedicine [facility] HospitalDiscleveland clinic [facility] rehabilitationr summary Author Ozzy Bright [facility] November 23, 2022 12:33am Note Date/Time November 23, 2022 12 :05am [facility] Medical Records Department [address] [place] [address] Emergency Department Summary 11/23/22 MR#: [id number] Acct: [id number] Name: MARION GUTIERREZ Rep #:[id number] : 1995 27 From: Ozzy Angel PCP: [facility] St atus:REG ER Location: ED HPI History [...] vision when her blood sugar was low. [facility] Medical History Anxiety Arthritis Autism Back [...] MOUTH TWICE A DAY [facility] Referrals: [facility] HospitalDais[facility] Kelsy [Primary Care Provider] - 3-5 Days Activity Restrictions/Additional Instructions: Call your primary care physician tomorrow for further instructions on your Victoza. Disposition Disposition: Home, Self Care What to do if you have Problems For any increased pain, shortness of breath, bleeding, nausea or vomiting, chestpain, or any unexpected problems, contact your Primary Care Provider. Call [facility] ([phone]) or report to the closest Emergency Room. Call 911 if necessary. 11/23/22 0033 <Electronically signed by Ozzy Bright DO> Cosigner Signature (if applicable): CC: [facility] ~ Signed [facility] Work Phone: Discharge summary Author Stan Lin [facility] Note Date/Time May 15, 2024 12: 13am [facility] Medical Records Department [address] [facility] [place] [address] Emergency Department Summary 05/15/24 MR#: [id number] Acct: [id number] Name: MARION GUTIERREZ Rep #:[id number] : 1995 From: Stan Lin DO PCP: Naina Da Silva Kimi, MIXER HELPER-C Statu s:REG ER Location: ED HPI History [...] evaluation management. Patient denies any sick contacts [facility] Medical History Alcohol use Picking own [...] lauroxil 441 mg/1.6 441 mg IM .COMPLEX [facility] 12/18/22 10/23/23 History mL suspension, ext.rel. [...] following commands and that she was at [facility] year is 2024. NIH of 0 [...] % (Auto) 58.9 Lymph % (Auto) 31.2 Kern % (Auto) 9.0 Eos % (Auto) 0.4 [...] 21:00 IMPRESSION: No Acute Findings. Reading Location: [facility] Discharge Plan Triage Chief Complaint: Chest [...] Naina Da Silva Referrals: Naina Da Silva, MIXER HELPER-C [Primary Care Provider] - Activity Restrictions/Additional Instructions: Follow with your primary care physician outpatient setting. Return with worsening symptoms or concerns. Chest x-ray is normal and your blood work was normal. Use your Reglan that you have at home for nausea and vomiting. Print Language: Wallisian Disposition Disposition: Home, Self Care What to do if you have Problems For any increased pain, shortness of breath, bleeding, nausea or vomiting, chestpain, or any unexpected problems, contact your Primary Care Provider. Call [facility] ([phone]) or report to the closest Emergency Room. Call 911 if necessary. 05/15/24 0013 <Electronically signed by Stan Lin DO> Cosigner Signature (if applicable): CC: REED MIXER HELPER-C Naina Da Silva ~ Signed [facility] Work Phone: Discharge summary Author Jaylon Galicia [facility] Note Date/Time June 03, 2024 1:[address] [facility] Medical Records Department [address] [place] [address] Emergency Department Summary 06/03/24 MR#: [id number] Acct: [id number] Name: MARION GUTIERREZ Rep #:[id number] : 1995 28 From: Jaylon Galicia MD PCP: Karuna Lim MIXER HELPER-C Status:REG ER Location: ED HPI History of Present Illness Chief Complaint: Neuro S/Sx Informant: patient and parent Narrative Narrative: 28-year-old female presents saying she been having a migraine for 1 week [id number] medications that are not helping, she gets [...] has had some jaw discomfort at times. [facility] Medical History Alcohol use Picking own [...] 441 mg/1.6 441 mg IM .COMPLEX [facility] 12/18/22 10/23/23 History mL suspension, [...] chronic history of migraines, going to perform DIAMOND DRILLER HELPER imaging but in addition CT angiography including [...] % (Auto) 64.3 Lymph % (Auto) 25.5 Kern % (Auto) 8.9 Eos % (Auto) 0.5 [...] 3. Additional description as above. Reading Location: [facility] Head/Neck CTA 06/03/24 08:57 IMPRESSION: 1. No [...] 3. Additional description as above. Reading Location: [facility] Rhythm Strip Rhythm Strip: Sinus Rhythm Rate: [...] Care Provider: Karuna Lim Referrals: Karuna Lim, MIXER HELPER-C [Primary Care Provider] - As soon as possible Print Language: Wallisian Disposition Disposition: Home, Self Care What to do if you have Problems For any increased pain, shortness of breath, bleeding, nausea or vomiting, chestpain, or any unexpected problems, contact your Primary Care Provider. Call [facility] ([phone]) or report to the closest Emergency Room. Call 911 if necessary. 06/03/24 1303 <Electronically signed by Jaylon Galicia MD> Cosigner Signature (if applicable): CC: Karuna MCBRIDE MIXER HELPER-C Beam ~ Signed [facility] Work Phone: Evaluation + Plan note No data available for this section [facility] Evaluation noteNo assessment information available [facility] Work Phone: Evaluation note* Diagnosis Onset Date Resolution Status Dysmenorrhea acute Hirsutism acute Oligomenorrhea acute Hypertension chronic Encounter for routine gynecological examination noneactive [facility] Work Phone: Evaluation note* Diagnosis Nausea and vomiting, unspecified vomiting type- Primary Dizziness Dizziness and giddiness [facility] Diagnosis Onset Date Resolution Status Dysmenorrhea acute Hirsutism acute Oligomenorrhea acute Hypertension chronic Encounter for routine gynecological examination noneactive Dysmenorrhea acute Hirsutism acute Oligomenorrhea acute [facility] Work Phone: Evaluation note* Diagnosis Dental infection- Primary Acute apical periodontitis of pulpal origin [facility]* Diagnosis Onset Date Resolution Status Dysmenorrhea acute Hirsutism acute Oligomenorrhea acute [facility] Work Phone: Evaluation note* Diagnosis Onset Date Resolution Status Nausea vomiting and diarrhea chronic [facility] Work Phone: Evaluation note* Diagnosis Onset Date Resolution Status Nausea vomiting and diarrhea chronic Oligomenorrhea acute Vaginitis noneactive [facility] Work Phone: Evaluation note* Diagnosis Onset Date Resolution Status Gastroparesis chronic Nausea vomiting and diarrhea chronic [facility] Work Phone: Evaluation note* Diagnosis Onset Date Resolution Status Crohn's disease acute Gastroparesis chronic Nausea vomiting and diarrhea chronic Dysmenorrhea acute Hirsutism acute Oligomenorrhea acute Encounter for routine gynecological examination noneactive Hydradenitis noneactive [facility] Work Phone: Evaluation note* Diagnosis Onset Date Resolution Status Crohn's disease acute Gastroparesis chronic Nausea vomiting and diarrhea chronic Dysmenorrhea acute Hirsutism acute Oligomenorrhea acute Encounter for routine gynecological examination noneactive Hydradenitis noneactive Cellulitis acute Syncope acute [facility] Work Phone: Evaluation note* Diagnosis Onset Date Resolution Status Syncope resolved Crohn's disease chronic Fatty liver chronic Gastroparesis chronic Nausea vomiting and diarrhea chronic [facility] Work Phone: Evaluation note* Diagnosis Onset Date Resolution Status Syncope resolved Crohn's disease chronic Fatty liver chronic Gastroparesis chronic Nausea vomiting and diarrhea chronic Bipolar 1 disorder chronic Diabetes chronic Obesity [facility] Work Phone: Evaluation note* Diagnosis Onset Date Resolution Status Crohn's disease chronic Fatty liver chronic Gastroparesis chronic Nausea vomiting and diarrhea chronic Bipolar 1 disorder chronic Diabetes chronic Obesity [facility] Work Phone: Evaluation note* Diagnosis Dizziness- Primary Dizziness and giddiness Headache, unspecified headache type [facility]* Diagnosis Onset Date Resolution Status Bipolar 1 disorder chronic Diabetes chronic Obesity [facility] Work Phone: Evaluation note* Diagnosis Impacted cerumen of left ear- Primary Impacted cerumen [facility]* Diagnosis PCOS (polycystic ovarian syndrome)- Primary Polycystic ovaries Obesity, Class III, BMI 40-49.9 (morbid obesity) (HCC) Morbid obesity [facility]* Diagnosis Pain- Primary Generalized pain documented in this encounter [facility]* Diagnosis Foot pain, left Pain in limb Sprain of ligament of left ankle, initial encounter documented [facility] this encounter [facility]* Diagnosis Chronic migraine without aura, intractable, without status migrainosus (CMS/HCC) documented in this encounter [facility] SystemEvaluation note* Diagnosis Morbid obesity with BMI of 45.0-49.9, adult (CMS/HCC)- Primary Chronic migraine without aura, intractable, without status migrainosus (CMS/HCC) [facility] Diagnosis PCOS (polycystic ovarian syndrome)- Primary Polycystic ovaries Obesity, Class III, BMI 40-49.9 (morbid obesity) (HCC) Morbid obesity [facility] Diagnosis Sore throat- Primary Acute pharyngitis URI, acute Acute upper respiratory infections of unspecified site documented in this encounter [facility] note* Diagnosis Acute otitis media, left- Primary Unspecified otitis media Acute otitis externa of left ear, unspecified type [facility] Diagnosis PCOS (polycystic ovarian syndrome)- Primary Polycystic ovaries Obesity, Class III, BMI 40-49.9 (morbid obesity) (HCC) Morbid obesity documented in this encounter [facility] note* Diagnosis Influenza-like illness- Primary Influenza with other respiratory manifestations documented in this encounter [facility] note* Diagnosis Obesity, Class III, BMI 40-49.9 (morbid obesity) ([facility])- Primary Morbid obesity PCOS (polycystic ovarian syndrome) Polycystic ovaries documented in this encounter [facility] note* Diagnosis Obesity, Class III, BMI 40-49.9 (morbid obesity) ([facility])- Primary Morbid obesity Type 2 diabetes mellitus with other specified complication, without long-term current use of insulin (HCC) Primary hypertension Unspecified essential hypertension Binge eating disorder, moderate Hypercholesterolemia Pure hypercholesterolemia Gastroparesis Steatosis of liver Other chronic nonalcoholic liver disease 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, requiring support (level 1) ([facility]) PCOS (polycystic ovarian syndrome) Polycystic ovaries Irritable bowel syndrome with diarrhea Irritable bowel syndrome Bipolar affective disorder, remission status unspecified ([facility]) Palpitations Hirsutism History of suicidal ideation Personal history of other mental disorder documented in this encounter [facility] note* Diagnosis Bipolar affective disorder, currently depressed, mild (HCC)- Primary Bipolar I disorder, most recent episode (or current) depressed, mild Obesity, Class III, BMI 40-49.9 (morbid obesity) (HCC) Morbid obesity Binge eating disorder, moderate Generalized anxiety disorder documented in this encounter [facility] note* Diagnosis PCOS (polycystic ovarian syndrome) Polycystic ovaries Obesity, Class III, BMI 40-49.9 (morbid obesity) Morbid obesity documented in this encounter [facility] note* Diagnosis PCOS (polycystic ovarian syndrome) [E28.2]- Primary Polycystic ovaries [facility] Diagnosis Obesity, Class III, BMI 40-49.9 (morbid obesity) (HCC)- Primary Morbid obesity Binge eating disorder, moderate Bipolar affective disorder, currently depressed, mild (HCC) Bipolar I disorder, most recent episode (or current) depressed, mild Generalized anxiety disorder [facility] Diagnosis Obesity, Class III, BMI 40-49.9 (morbid obesity) (HCC) Morbid obesity Type 2 diabetes mellitus with other specified complication, without long-term current use of insulin (HCC) Palpitations documented in this [facility] Diagnosis PCOS (polycystic ovarian syndrome) Polycystic ovaries Obesity, Class III, BMI 40-49.9 (morbid obesity) (HCC) Morbid obesity documented in this encounter [facility] Author Adnreas Oliva [facility] August 08, 2022 2:27pm Note Date/Time August 08, 2022 2:27 pm [facility] Medical Records Department [address] [place] [id number] History & Physical Exam 08/08/22 1426 MR#: [id number] Acct: [id number] Name: MARION GUTIERREZ Rep #:[id number] : 1995 26 From: Andreas lOiva DO PCP: [facility] St ocampous:[facility] [place] Location: [place] [address] History and Physical Date of Admission: 08/08/22 MARION GUTIERREZ, is a 26 F who presents to the office today for PMH autism, bipolar type 1, PCOS [facility] ED on multiple occasions over the years with N/V, headache, diarrhea, CP. Stool studies for infection have been performed throughout the years with calprotectin, C.Difficile, EP, O/P WNL each time. CT abd/pel 1.14.16?abd pain/diarrhea mild hepatomegaly, homogeneous; splenomegaly; multiple fluid-filled small bowel loops; diverticulosis. Stool ..16?lactoferrin + US RUQ 2.16.16?abd pain hepatomegaly 18.7cm with fatty infiltration. HIDA 4.24.17?EF 88%. When compared to 2..16 scan there is continued evidence of duodenal-gastric reflux. GI and hepatology specialists established in 2018 with diarrhea, bloating, abd pain, N/V and diagnosed with IBS-D and GERD. ?[facility] C[facility]ac 12.12.17?without positive findings. EGD 01.03.18?advanced to small bowel noting bile in stomach and mild gastritis. No pathologic changes. US 5.9.19?hepatic measurement 18cm with increased echogenicity. ?EGD 09.08.20?advanced to small bowel noting gastritis, mild. Remaining exam without acute/chronic finding. H.Pylori -. ?Colonoscopy 10.08.20?advanced to TI noting internal hemorrhoids without visual abnormality. Without pathologic changes. [facility] ED visits continue as noted above. US RUQ 10..?abd pain hepatomegaly 19cm with fatty infiltration. US ABD 11.30.21?abd pain hepatomegaly 20.2cm with fatty infiltration; splenomegaly. No ascites. Biochemical workup ?T3, T4, CBC, CMP, TIBC, iron, ferritin, copper, zinc,selenium without pertinent abnormality. ? TSH H4.91 [facility] ED visit prompting referral 01.24.22 with [...] TSH H4.77; T4WNL. *[facility] established 02.15.22 following [facility] ED presentation. Marion has had multipleED [...] to be calculated. Contact with results; flaquita Cremehdi and reglan OV 06.06.22 She continues to [...] Exam Const General: cooperative Nutritional Appearance: obese [facility] Head: normal to inspection Ears: TM's normal bilaterally Nose: external nose normal Face and sinus: normal facial exam Mouth: oral mucosae normal Throat: posterior oropharynx normal Neck Lymphatic: no lymphadenopathy noted Resp Effort & Inspection: normal respiratory effort Auscultation: Bilateral: Clear to Auscultation Cardio Rate: regular rate Rhythm: regular rhythm Quality Reporting Tobacco Screening (CMS 138) Smoking Status: Never smoker Assessment and [...] na usea and vomiting ? ? Discontinued nbtnqf-jyoyrhvs-emnolvr 40,000-126,000- 168,000 unit (Zenpep) ?? take three capsules with meals ?? Discontinued Reason:? Order Completed 3 caps? PO TID 189 caps 0RF MARION GUTIERREZ, is a 26 F who presents to the office today for PMH autism, bipolar type 1, PCOS [facility] ED on multiple occasions over the years with N/V, headache, diarrhea, CP. Stool studies for infection have been performed throughout the years with calprotectin, C.Difficile, EP, O/P WNL each time. CT abd/pel 1..16?abd pain/diarrhea mild hepatomegaly, homogeneous; splenomegaly; multiple fluid-filled [...] hemorrhoids without visual abnormality. Without pathologic changes. [facility] ED visits continue as noted above. US RUQ 10.8.21?abd pain hepatomegaly 19cm with fatty infiltration. US ABD 11.30.?abd pain hepatomegaly 20.2cm with fatty infiltration; splenomegaly. No ascites. Biochemical workup ?T3, T4, CBC, CMP, TIBC, iron, ferritin, copper, zinc,selenium without pertinent abnormality. ? TSH H4.91 [facility] ED visit prompting referral 01.24.22 with [...] TSH H4.77; T4WNL. *[facility]I established 02.15.22 following [facility] ED presentation. Marion has had multipleED [...] Exam Const General: cooperative Nutritional Appearance: obese [facility] Head: normal to inspection Ears: TM's normal bilaterally Nose: external nose normal Face and sinus: normal facial exam Mouth: oral mucosae normal Throat: posterior oropharynx normal Neck Lymphatic: no lymphadenopathy noted Resp Effort & Inspection: normal respiratory effort Auscultation: Bilateral: Clear to Auscultation Cardio Rate: regular rate Rhythm: regular rhythm Quality Reporting Tobacco Screening ([facility] 138) Smoking Status: Never smoker Assessment [...] na usea and vomiting ? ? Discontinued xwamdg-otabueud-rmrmbsb 40,000-126,000- 168,000 unit (Zenpep) ?? take three capsules with meals ?? Discontinued Reason:? Order Completed 3 caps? PO TID 189 caps 0RF I have examined the patient and the H&P has been reviewed. There are no clinicalchanges since date of exam. 08/08/22 1427 <Electronically signed by Andreas Oliva DO> Cosigner Signature (if applicable): CC: Andreas Oliva DO; [facility]~ Signed [facility] Work Phone: Hospital Discharge instructions Additional Instructions Your CT showed some colitis on the right which is consistent with your pain. Please follow-up with your GI doctor. You been placed on a course of antibiotics.[facility] Work Phone: Hospital Discharge instructions Additional Instructions Call your primary care physician tomorrow for further instructions on your Victoza.[facility] Work Phone: Hospital Discharge instructions Additional Instructions Continue your Reglan as needed. Small amounts of water to keep yourself hydrated.[facility] Work Phone: Hospital Discharge instructions Additional Instructions Today you had a negative cardiac workup. Please continue to follow-up outpatient. Negative chest x-ray, troponin, D-dimer. Please [facility] any worsening [facility] Work Phone: Hospital Discharge instructions Additional Instructions Follow-up your doctor in outpatient setting. Return with worsening symptoms or concerns. Your CT today did not show anything surgical. Use the prescriptions are sent to your pharmacy as prescribed.[facility] Work Phone: Hospital Discharge instructions Additional Instructions Follow with your primary care physician outpatient setting. Return with worsening symptoms or concerns. Chest x-ray is normal and your blood work was normal. Use your Reglan that you have at home for nausea and vomiting.[facility] Work Phone: Hospital Discharge instructionsAdditional Instructions [...] the ER should you have any further concernsWCleveland [facility] Work Phone: Hospital Discharge instructionsAdditional Instructions Follow-up with gastroenterology as soon as possible. You will be contacted should your C. difficile test be positive. Return with fever, new or worsening symptoms.[facility] Work Phone: Reason for referral (narrative)No reason for referral information availableWCleveland Clinic [facility] Work Phone: Summary Purpose Family History [...] No January 18 021 9:17pm Power of Expeller Operator No January 18, 2021 9:17pm Advance Directive Response Recorded Date/ Time Living Will No August 16, 2021 8:30pm Power of Expeller Operator No August 16 2 8:30pm Advance Directive Response Recorded Date/ Time Living Will No August 29, 2021 8:19pm Power of Expeller Operator No August 29 8:19pm Advance Directive Response Recorded Date/ Time Living Will No September 03, 2021 11:58am Power of Expeller Operator No September 03 2 11:58am Advance Directive Response Recorded Date/ Time Living Will No September 10, 2021 2:46am Power of Expeller Operator No September 10 2:46am Advance Directive Response Recorded Date/ Time Living Will No January 24 8:04pm Power of Expeller Operator No January 24, 2022 8:04pm Advance Directive Response Recorded Date/ Time Living Will No August 04, 2022 10:54am Power of Expeller Operator No August 04 3 10:54am Advance Directive Response Recorded Date/ Time Living Will No August 15, 2022 7:13pm Power of Expeller Operator No August 15 7:13pm Advance Directive Response Recorded Date/ Time Living Will No November 22 9:47pm Power of Expeller Operator No November 22, 2 023 9:47pm Advance Directive Response Recorded Date/ Time Living Will No December 09 8:10pm Power of Expeller Operator No December 09, 2022 8:10pm Advance Directive Response Recorded Date/ Time Living Will No December 18 5:01pm Power of Expeller Operator No December 18, 2022 5:01pm Advance Directive Response Recorded Date/ Time Living Will No December 18 7:24pm Power of Expeller Operator No December 18, 2022 7:24pm Advance Directive Response Recorded Date/ Time Living Will No December 18 6:24pm Power of Expeller Operator No December 18, 2022 6:24pm Advance Directive Response Recorded Date/ Time Living Will No April 07, 024 4:17pm Power of Expeller Operator No April 07, 2023 4:17pm Advance Directive Response Recorded Date/ Time Living Will No May 08, 2023 2:47pm Power of Expeller Operator No May 07 2:47pm Advance Directive Response Recorded Date/ Time Living Will No June 03, 2023 8:45pm Power of Expeller Operator No June 02 8:45pm Advance Directive Response Recorded Date/ Time Living Will No November 26 10:03pm Power of Expeller Operator No November 26 2 024 10:03pm Advance Directive Response Recorded Date/ Time Living Will No November 26 10:03pm Do you have a Healthcare Power of Expeller Operator? No November 27, 2023 10:03pm Living Will No May 08, 2024 3:41pm Do you have a Healthcare Power of Expeller Operator? No May 08, 2024 3:41pm Advance Directive Response Recorded Date/ Time Living Will No May 08, 2024 3:41pm Do you have a Healthcare Power of Expeller Operator? No May 08, 2024 3:41pm Living Will No May 14, 2024 10:34pm Do you have a Healthcare Power of Expeller Operator? No May 14, 2024 10:34pm Advance Directive Response Recorded Date/ Time Living Will No May 08, 2024 3:41pm Do you have a Healthcare Power of Expeller Operator? No May 08, 2024 3:41pm Living Will No May 14, 2024 10:34pm Do you have a Healthcare Power of Expeller Operator? No May 14, 2024 10:34pm Living Will No June 03, 2024 8:41am Do you have a Healthcare Power of Expeller Operator? No June 03, 2024 8:41am Advance Directive Response Recorded Date/ Time Living Will No July 10, 2023 9 :36am Do you have a Healthcare Power of Expeller Operator? No July 10, 2023 9:36am Living Will No May 08, 2024 3:41pm Do you have a Healthcare Power of Expeller Operator? No May 08, 2024 3:41pm Living Will No May 14, 2024 10:34pm Do you have a Healthcare Power of Expeller Operator? No May 14, 2024 10:34pm Living Will No June 03, 2024 8:41am Do you have a Healthcare Power of Expeller Operator? No June 03, 2024 8:41am Advance Directive Response Recorded Date/ Time Living Will No July 10, 2023 9 :36am Do you have a Healthcare Power of Expeller Operator? No July 10, 2023 9:36am Living Will No May 08, 2024 3:41pm Do you have a Healthcare Power of Expeller Operator? No May 08, 2024 3:41pm Living Will No May 14, 2024 10:34pm Do you have a Healthcare Power of Expeller Operator? No May 14, 2024 10:34pm Do you have a Healthcare Power of Expeller Operator? No September 04, 2024 9:13pm Living Will No June 03, 2024 8:41am Do you have a Healthcare Power of Expeller Operator? No June 03, 2024 8:41am Advance Directive Response Recorded Date/ Time Living Will No July 10, 2023 9 :36am Do you have a Healthcare Power of Expeller Operator? No July 10, 2023 9:36am Living Will No May 14, 2024 10:34pm Do you have a Healthcare Power of Expeller Operator? No May 14, 2024 10:34pm Do you have a Healthcare Power of Expeller Operator? No September 04, 2024 9:13pm Living Will No Rosey 15th, 2025 8:41am Do you have a Healthcare Power of Expeller Operator? No June 03, 2024 8:41am Advance Directive Response Recorded Date/ Time Living Will No July 10, 2023 9 :36am Do you have a Healthcare Power of Expeller Operator? No July 10, 2023 9:36am Do you have a Healthcare Power of Expeller Operator? No September 04, 2024 9:13pm Do you have a Healthcare Power of Expeller Operator? No September 21, 2024 8:41pm Living Will No June 03, 2024 8:41am Do you have a Healthcare Power of Expeller Operator? No June 03, 2024 8:41am Chief Complaint and Reason for Visit Chief Complaint Admit Date 3 M FU January 14, 2024 2:29pm N/V May 08, 2024 2:3 6pm Reason for Visit Admit Date Palpitations January 14, 2024 2:29pm Syncope January 14, 2024 2:29pm Hypertension January 14, 2024 2:29pm Chief Complaint Annual (DIE HARDENER) LEG Reason for Visit Dysmenorrhea Hirsutism Oligomenorrhea Hypertension Encounter for routine gynecological examination Chief Complaint Annual (DIE HARDENER) LEG HEADACHE Reason for Visit Dysmenorrhea Hirsutism Oligomenorrhea Hypertension Encounter for routine gynecological examination Chief Complaint Annual (DIE HARDENER) LEG HEADACHE NAUEA/VOMITING Reason for Visit Dysmenorrhea Hirsutism Oligomenorrhea Hypertension Encounter for routine gynecological examination Chief Complaint Annual (DIE HARDENER) LEG HEADACHE NAUEA/VOMITING SI Reason for Visit Dysmenorrhea Hirsutism Oligomenorrhea Hypertension Encounter for routine gynecological examination Chief Complaint Annual (DIE HARDENER) LEG HEADACHE NAUEA/VOMITING SI pap exam, med [...] pain diarrhea ER FU 2 ORDERING '[place] Reason for Visit Nausea vomiting and diarrhea [...] PAIN 2 WK FU CROHN'S DISEASE Annual (DIE HARDENER) CHRONIC MIGRAINE Reason for Visit Crohn's disease Gastroparesis Nausea vomiting and diarrhea Dysmenorrhea Hirsutism Oligomenorrhea Encounter for routine gynecological examination Hydradenitis Chief Complaint ABD PAIN 2 WK FU CROHN'S DISEASE Annual (DIE HARDENER) CHRONIC MIGRAINE HYPOGLYCEMIA Reason for Visit Crohn's disease Gastroparesis Nausea vomiting and diarrhea Dysmenorrhea Hirsutism Oligomenorrhea Encounter for routine gynecological examination Hydradenitis Chief Complaint ABD PAIN 2 WK FU CROHN'S DISEASE Annual (DIE HARDENER) CHRONIC MIGRAINE HYPOGLYCEMIA N/V/D, SYNCOPE, HYPOTENSION Reason for Visit Crohn's disease Gastroparesis Nausea vomiting and diarrhea Dysmenorrhea Hirsutism Oligomenorrhea Encounter for routine gynecological examination Hydradenitis Chief Complaint 2 WK FU CROHN'S DISEASE Annual (DIE HARDENER) CHRONIC MIGRAINE HYPOGLYCEMIA N/V/D, SYNCOPE, HYPOTENSION Reason for Visit Crohn's disease Gastroparesis Nausea vomiting and diarrhea Dysmenorrhea Hirsutism Oligomenorrhea Encounter for routine gynecological examination Hydradenitis Chief Complaint 2 WK FU CROHN'S DISEASE Annual (DIE HARDENER) CHRONIC MIGRAINE HYPOGLYCEMIA N/V/D, SYNCOPE, HYPOTENSION SYNCOPE Reason for Visit Crohn's disease Gastroparesis Nausea vomiting and diarrhea Dysmenorrhea Hirsutism Oligomenorrhea Encounter for routine gynecological examination Hydradenitis Cellulitis Syncope Chief Complaint 2 WK FU CROHN'S DISEASE Annual (DIE HARDENER) CHRONIC MIGRAINE HYPOGLYCEMIA N/V/D, SYNCOPE, HYPOTENSION Syncope [...] RT ARM MUCH GREATER THAN LT ARM Ne y 2024 9:41am 1 Y FU July [...] RT ARM MUCH GREATER THAN LT ARM Ne y 2024 9:41am 1 Y FU July [...] RT ARM MUCH GREATER THAN LT ARM Ne [place] 2024 9:41am 1 Y FU July 08, [...] RT ARM MUCH GREATER THAN LT ARM Ne [place] 2024 9:41am 1 Y FU July 08, [...] RT ARM MUCH GREATER THAN LT ARM Ne 2024 9:41am 1 Y FU July 08, 2024 9:56a m 2 M FU July 24, 2024 1:29p m LESION ON LIVER August 07, 2024 1:11 pm SYNCOPE September 04, 2024 9:13 pm Chief Complaint Admit Date 6 M FU May 29, 2024 2:3 2pm HEADACHE June 02, 2024 7:2 5pm RUQ PAIN June 03, 2024 7:1 8am HEADACHE, June 03, 2024 8:3 3am palpitations June 05, 2024 6:3 6am 30 DAY MONITOR June 05, 2024 8:0 0am BP IN RT ARM MUCH GREATER THAN LT ARM Ne y 2024 9:41am 1 Y FU July 08, 2024 9:56a m 2 M FU July 24, 2024 1:29p m LESION ON LIVER August 07, 2024 1:11 pm SYNCOPE September 04, 2024 9:13 pm Diarrhea September 21, 2024 8:3 2pm Chief Complaint Admit Date 6 M FU May 29, 2024 2:3 2pm HEADACHE June 02, 2024 7:2 5pm RUQ PAIN June 03, 2024 7:1 8am HEADACHE, June 03, 2024 8:3 3am palpitations June 05, 2024 6:3 6am 30 DAY MONITOR June 05, 2024 8:0 0am BP IN RT ARM MUCH GREATER THAN LT ARM Ne 2024 9:41am 1 Y FU July 08, 2024 9:56a m 2 M FU July 24, 2024 1:29p m LESION ON LIVER August 07, 2024 1:11 pm SYNCOPE September 04, 2024 9:13 pm Diarrhea September 21, 2024 8:3 2pm Diarrhea September 25, 2024 2:2 4pm Reason for Visit Admit Date Palpitations May [...] m Hypertension July 24, 2024 1:29p m Acute diarrhea September 25, 2024 2:2 4pm Reason for Referral Specialty Diagnoses / Procedures Referred By Contolena t Referred To Contact Diagnoses PCOS (polycystic ovarian syndrome) Obesity, Class III, BMI 40-49.9 (morbid obesity) (HCC) Procedures ENDOCRINOLOGY DIETITIAN VISIT (MNT) MEDICAL NUTRITION ASSMT&IVNTJ INDIV EACH FL MEDICAL NUTRITION ASSMT&IVNTJ INDIV EACH 15 FL MEDICAL NUTRITION ASSMT&IVNTJ INDIV EACH 15 [place] MEDICAL NUTRITION ASSMT&IVNTJ INDIV EACH 15 FL Jey Johnson MD [address] [place] [address] Referral ID Status Reason Start Date Expiration Date Visits Requested Visits Authorized [id number] Authorized PCP Requested Referral 4 01/07/2025 1 1 Additional Source Comments INFORMATION SOURCE (unrecogn ized section and content) DATE CREATED AUTHOR 08/14/2017 [facility] DATE CREATED AUTHOR AUTHOR'S ORGANIZ ATION 08/14/2017 [facility] DATE CREATED AUTHOR AUTHOR'S ORGANIZ ATION 02/16/2021 [facility] dical Specialist DATE CREATED AUTHOR AUTHOR'S ORGANIZ ATION 12/19/2022 [facility] ([place]) DATE CREATED AUTHOR AUTHOR'S ORGANIZ ATION 04/18/2023 [facility] DATE CREATED AUTHOR AUTHOR'S ORGANIZ ATION 01/02/2024 [facility] d[facility] Specialists EPIC DATE CREATED AUTHOR AUTHOR'S ORGANIZ ATION 05/17/2024 [facility] DATE CREATED AUTHOR AUTHOR'S ORGANIZ ATION 09/20/2024 [facility] DATE CREATED AUTHOR AUTHOR'S ORGANIZ ATION 09/27/2024 [facility] Goals (unrecognized section and content) Goals may be documented in a n alternate section Source Comments (unrecognize d section and content) In the event this informatio n is protected by the Federal Confidentiality of Alcohol and Drug Abuse Patient Records regulations: The Federal rules restrict any use of the information to criminally investigate or prosecute any alcohol or drug abuse patient.[facility] the event this information is protected by the Federal Confidentiality of Alcohol and Drug Abuse Patient Records regulations: The Federal rules restrict any use of the information to criminally investigate or prosecute any alcohol or drug abuse patient.[facility] Hospital[facility] the event this information is protected by the Federal Confidentiality of Alcohol and Drug Abuse Patient Records regulations: The Federal rules restrict any use of the information to criminally investigate or prosecute any alcohol or drug abuse patient.[facility] Hospital[facility] the event this information is protected by the Federal Confidentiality of Alcohol and Drug Abuse Patient Records regulations: The Federal rules restrict any use of the information to criminally investigate or prosecute any alcohol or drug abuse patient.[facility] Hospital[facility] the event this information is protected by the Federal Confidentiality of Alcohol and Drug Abuse Patient Records regulations: The Federal rules restrict any use of the information to criminally investigate or prosecute any alcohol or drug abuse patient.[facility] [facility] the event this information is protected by the Federal Confidentiality of Alcohol and Drug Abuse Patient Records regulations: The Federal rules restrict any use of the information to criminally investigate or prosecute any alcohol or drug abuse patient.[facility] the event this information is protected by the Federal Confidentiality of Alcohol and Drug Abuse Patient Records regulations: The Federal rules restrict any use of the information to criminally investigate or prosecute any alcohol or drug abuse patient.[facility] the event this information is protected by the Federal Confidentiality of Alcohol and Drug Abuse Patient Records regulations: The Federal rules restrict any use of the information to criminally investigate or prosecute any alcohol or drug abuse patient.[facility] HospitalIn the event this information is protected by the Federal Confidentiality of Alcohol and Drug Abuse Patient Records regulations: The Federal rules restrict any use of the information to criminally investigate or prosecute any alcohol or drug abuse patient.[facility] HospitalIn the event this information is protected by the Federal Confidentiality of Alcohol and Drug Abuse Patient Records regulations: The Federal rules restrict any use of the information to criminally investigate or prosecute any alcohol or drug abuse patient.[facility] HospitalIn the event this information is protected by the Federal Confidentiality of Alcohol and Drug Abuse Patient Records regulations: The Federal rules restrict any use of the information to criminally investigate or prosecute any alcohol or drug abuse patient.[facility] HospitalIn the event this information is protected by the Federal Confidentiality of Alcohol and Drug Abuse Patient Records regulations: The Federal rules restrict any use of the information to criminally investigate or prosecute any alcohol or drug abuse patient.[facility] HospitalIn the event this information is protected by the Federal Confidentiality of Alcohol and Drug Abuse Patient Records regulations: The Federal rules restrict any use of the information to criminally investigate or prosecute any alcohol or drug abuse patient.[facility] HospitalIn the event this information is protected by the Federal Confidentiality of Alcohol and Drug Abuse Patient Records regulations: The Federal rules restrict any use of the information to criminally investigate or prosecute any alcohol or drug abuse patient.[facility] HospitalIn the event this information is protected by the Federal Confidentiality of Alcohol and Drug Abuse Patient Records regulations: The Federal rules restrict any use of the information to criminally investigate or prosecute any alcohol or drug abuse patient.[facility] HospitalIn the event this information is protected by the Federal Confidentiality of Alcohol and Drug Abuse Patient Records regulations: The Federal rules restrict any use of the information to criminally investigate or prosecute any alcohol or drug abuse patient.[facility] HospitalIn the event this information is protected by the Federal Confidentiality of Alcohol and Drug Abuse Patient Records regulations: The Federal rules restrict any use of the information to criminally investigate or prosecute any alcohol or drug abuse patient.[facility] HospitalIn the event this information is protected by the Federal Confidentiality of Alcohol and Drug Abuse Patient Records regulations: The Federal rules restrict any use of the information to criminally investigate or prosecute any alcohol or drug abuse patient.[facility] HospitalIn the event this information is protected by the Federal Confidentiality of Alcohol and Drug Abuse Patient Records regulations: The Federal rules restrict any use of the information to criminally investigate or prosecute any alcohol or drug abuse patient.[facility] HospitalIn the event this information is protected by the Federal Confidentiality of Alcohol and Drug Abuse Patient Records regulations: The Federal rules restrict any use of the information to criminally investigate or prosecute any alcohol or drug abuse patient.[facility] HospitalIn the event this information is protected by the Federal Confidentiality of Alcohol and Drug Abuse Patient Records regulations: The Federal rules restrict any use of the information to criminally investigate or prosecute any alcohol or drug abuse patient.[facility] HospitalIn the event this information is protected by the Federal Confidentiality of Alcohol and Drug Abuse Patient Records regulations: The Federal rules restrict any use of the information to criminally investigate or prosecute any alcohol or drug abuse patient.[facility] HospitalIn the event this information is protected by the Federal Confidentiality of Alcohol and Drug Abuse Patient Records regulations: The Federal rules restrict any use of the information to criminally investigate or prosecute any alcohol or drug abuse patient.[facility] HospitalIn the event this information is protected by the Federal Confidentiality of Alcohol and Drug Abuse Patient Records regulations: The Federal rules restrict any use of the information to criminally investigate or prosecute any alcohol or drug abuse patient.[facility] HospitalIn the event this information is protected by the Federal Confidentiality of Alcohol and Drug Abuse Patient Records regulations: The Federal rules restrict any use of the information to criminally investigate or prosecute any alcohol or drug abuse patient.[facility] Care Teams (unrecognized sec tion and content) Team Status: Active Member Role Status Dates Naina Da Silva VSC, MIXER HELPER-C Primary Care Provider Activ e Team Status: Inactive Member Role Status Dates Naina Da Silva VSC, MIXER HELPER-C Primary Care Provider Activ e Start: January 14, 2024 End: January 14, 2024 Nainaben Da Silva VSC, MIXER HELPER-C Referring Provider Active Start: January 14, 2024 End: January 14, 2024 Dr. Marco Bartlett MD Attending Provider Active Start: January 14, 2024 End: January 14, 2024 Team Status: Inactive Member Role Status Dates Naina Da Silva VSC, MIXER HELPER-C Primary Care Provider Activ e Start: February 05, 2024 End: February 05, 2024 Zebulun Beam VSC, MIXER HELPER-C Attending Provider Active Start: February 05, 2024 End: February 05, 2024 Team Status: Inactive Member Role Status Dates Naina Da Silva VSC, MIXER HELPER-C Primary Care Provider Activ e Start: April 22, 2024 End: April 22, 2024 Zebulun Beam VSC, MIXER HELPER-C Attending Provider Active Start: April 22, 2024 End: April 22, 2024 Team Status: Active Member Role Status Dates Naina Da Silva VSC, MIXER HELPER-C Primary Care Provider Activ e Start: May 07, 2024 Zebulun Beam VSC, MIXER HELPER-C Attending Provider Active Start: May 07, 2024 Team Status: Inactive Member Role Status Dates Naina Da Silva VSC, MIXER HELPER-C Primary Care Provider Activ e Start: May 08, 2024 End: May 08, 2024 Dr. Stan Lin DO Referring Provider Active Start: May 08, 2024 End: May 08, 2024 Dr. Stan Lin DO Emergency Provider Active Start: May 08, 2024 End: May 08, 2024 Fixture Maker Relationship Specialty Start Date End Date Crys Obrien PCP - General Family Practice 01/13/19 Ernesto Carter, DO Family Practice 06/15/16 Fixture Maker Relationship Specialty Start Date End Date Crys Obrien PCP - General Family Medicine 01/13/19 Ernesto Carter, DO Family Medicine 06/15/16 Team Status: Active Member Role Status [facility] Family Provider Active [facility] Primary Care Provider A ctive Team Status: Inactive Member Role Status [facility] Primary Care Provider, Referring Provider Active Dr. Andreas Oliva , Attending Provider Active Team Status: Inactive Member Role Status [facility] Primary Care Provider, Referring Provider Active Zeus Miller MIXER HELPER, MIXER HELPER-C Attending Provider Active Team Status: Inactive Member Role Status [facility] Primary Care Provider A ctive WILLIAMS GREGORIO Attending Provider, Referring Provider Active Team Status: Inactive Member Role Status [facility] Primary Care Provider A ctive Dr. Clay Causey MD Attending Provider, Referring Provider Active Vani Carlson , MIXER HELPER-C Other Provider Active Karina Guerra MIXER HELPER, MIXER HELPER-C Other Provider Active Team Status: Inactive Member Role Status [facility] Primary C are Provider, Attending Provider, Referring Provider Active Naina Da Silva MIXER HELPER, MIXER HELPER-C Other Provider Active Team Status: Inactive Member Role Status [facility] Primary Care Provider A ctive Dr. Martin Pace , Attending Provider, Emergency P rovider Active Team Status: Inactive Member Role Status [facility] Primary Care Provider A ctive Dr. Coni Angelo , Attending Provider, Emergency P rovider Active Team Status: Inactive Member Role Status [facility] Primary Care Provider A ctive Dr. Andreas Oliva DO Attending Provider, Referring Provider Active Zeus Miller MIXER HELPER, MIXER HELPER-C Other Provider Active Team Status: Inactive Member Role Status [facility] Primary Care Provider A ctive Dr. Andreas Oliva DO Attending Provider, Referring Provider Active Team Status: Active Member Role Status Dates [facility] Primary Care Provider A ctive Dr. Andreas Oliva DO Attending Provider, Referring Provider Active Team Status: Inactive Member Role Status Dates [facility] Primary Care Provider A ctive Karina Guerra MIXER HELPER, MIXER HELPER-C Attending Provider, Referring Provider Active Zeus Miller MIXER HELPER, MIXER HELPER-C Other Provider Active Team Status: Active Member Role Status Dates [facility] Primary Care Provider A ctive Dr. Andreas Oliva DO Attending Provid er, Referring Provider, Other Provider Active Team Status: Inactive Member Role Status Dates [facility] Primary Care Provider A ctive Dr. David Etienne DO Emergency Provider Active Team Status: Inactive Member Role Status [facility] Primary Care Provider A ctive Dr. David Etienne DO Attending Provider, Emergency Provider Active Team Status: Inactive Member Role Status [facility] Primary Care Provider A ctive Dr. Andreas Oliva DO Attending Provider, Referring Provider Active Naina Da Silva MIXER HELPER, MIXER HELPER-C Other Provider Active Team Status: Inactive Member Role Status Dates [facility] Primary Care Provider A ctive Dr. Nolan Lo MD Attending Provider, Referring Provider Active Team Status: Inactive Member Role Status [facility] Primary Care Provider A ctive Zeus Miller MIXER HELPER, MIXER HELPER-C Attending Provider, Referring Provider Active Team Status: Inactive Member Role Status [facility] Primary Care Provider A ctive Dr. Ozzy Bright DO Emergency Provider Active Team Status: Inactive Member Role Status [facility] Primary Care Provider A ctive Dr. Ozzy Bright , Attending Provider, Emergency [facility] Active Team Status: Inactive Member Role Status [facility] Primary Care Provider A ctvivienne Das MD Emergency Provider Active Team Status: Inactive Member Role Status Dates [facility] Primary Care Provider A ctvivienne Das MD Attending Provider, Emergency Provid er Active Team Status: Active Member Role Status [facility] Primary Care Provider A ctive Dr. Sarah Purdy MD Emergency Provider Active Dr. [place] Wisdom DO Admit Provider, Attending Pro vider Active Team Status: Active Member Role Status Dates [facility] Primary Care Provider A ctive Dr. Sarah Purdy MD Emergency Provider Active Dr. [place] Wisdom DO Admit Provider, Attending Provider, Other Provider Active Team Status: Active Member Role Status [facility] Primary Care Provider A ctive Dr. Garrick Mcgowan MD Attending Provider Active Team Status: Active Member Role Status Dates [facility] Primary Care Provider A ctive Dr. Sarah Purdy MD Emergency Provider Active Dr. [place] Wisdom DO Admit Provider, Other Provide r Active Dr. Laura Li MD Attending Provider, Other Provid er Active Team Status: Inactive Member Role Status [facility] Primary Care Provider A ctive Dr. Sarah Purdy MD Emergency Provider Active Dr. [place] Wisdom DO Admit Provider, Other Provide r Active Dr. Laura Li MD Attending Provider Active Team Status: Active Member Role Status [facility] Family Provider Active Naina Da Silva MIXER HELPER, MIXER HELPER-C Primary Care Provider Active Team Status: Inactive Member Role Status Dates Naina Da Silva MIXER HELPER, MIXER HELPER-C Primary Care Provider Active Dr. Laura Li MD Attending Provider, Referring Pr ovider Active Team Status: Inactive Member Role Status Dates Naina Da Silva MIXER HELPER, MIXER HELPER-C Primary Care Provider Active Dr. Andreas Oliva DO Attending Provider, Referring Provider Active Team Status: Inactive Member Role Status [facility] Referring Provider Acti ve Dr. Hubert Mo MD Attending Provider Active Naina Da Silva MIXER HELPER, MIXER HELPER-C Primary Care Provider Active Team Status: Inactive Member Role Status Dates Naina Da Silva MIXER HELPER, MIXER HELPER-C Primary Care Provider Active Dr. Bridger Kamara DO Emergency Provider Active Team Status: Inactive Member Role Status Dates Naina Da Silva MIXER HELPER, MIXER HELPER-C Primary Care Provider Active Dr. Bridger Kamara DO Attending Provider, Emergency P gerard Active Team Status: Inactive Member Role Status Dates Naina Da Silva MIXER HELPER, MIXER HELPER-C Primary Care Provider Active Dr. Sarah Purdy MD Emergency Provider Active Fixture Maker Relationship Specialty Start Date End Date Clinic, [facility] [address] [place] [address] PCP - General 05/08/23 Ernesto Carter, DO Family [facility] 06/15/16 Team Status: Inactive Member Role Status Dates Naina Da Silva MIXER HELPER, MIXER HELPER-C Primary Care Provider Active Dr. Sarah Purdy MD Attending Provider, Emergency Provider Active Team Status: Inactive Member Role Status Dates Naina Da Silva MIXER HELPER, MIXER HELPER-C Primary Care Provider Active Rodolfo Das MD Emergency Provider Active Fixture Maker Relationship Specialty Start Date End Date [facility], [facility] PCP - General 05/08/23 Ernesto Carter, DO Family [facility] 06/15/16 Naina Da Silva NP [address] [place], [place] [id number] Referring Family [facility] 09/05/23 Fixture Maker Relationship Specialty Start Date End Date [facility], [facility] - General 05/08/23 Ernesto Carter, DO Family [facility] 06/15/16 Naina Da Silva NP [address] [place] [address] Referring Family [facility] 09/05/23 Fixture Maker Relationship Specialty Start Date End Date [facility], [facility] - General 05/08/23 Ernesto Carter, DO Family Medicine 06/15/16 Naina Da Silva NP [address] [place] [address] Referring Family [facility] 09/05/23 Fixture Maker Relationship Specialty Start Date End Date Crys Obrien, FISH PCP - General Family Medicine 01/13/19 05/07/23 Ernesto Carter, Family [facility] 06/15/16 Fixture Maker Relationship Specialty Start Date End Date Unallocated, Dcs MD [place] [address] [place] [address] PCP - General 07/31/22 [place]isson [place], MIXER HELPER [address] [place] [address] PCP - [facility] 08/20/23 Fixture Maker Relationship Specialty Start Date End Date Unallocated, Ngozi Mays MD [address] [place] [address] PCP - General 07/31/22 [place], MIXER HELPER [address] [place] [address] PCP - [facility] 08/20/23 Fixture Maker Relationship Specialty Start Date End Date Unallocated, Ngozi Mays MD [address] [place] [address] PCP - General 07/31/22 [place], MIXER HELPER [address] [place] [address] PCP - [facility] 08/20/23 Fixture Maker Relationship Specialty Start Date End Date [facility] PCP - General 05/08/23 Ernesto Carter, DO Family Medicine 06/15/16 Naina Da Silva NP [address] [place] [address] Referring Family Medicine 09/05/23 Fixture Maker Relationship Specialty Start Date End Date [facility], [facility] PCP - General 05/08/23 Ernesto Carter, Family Medicine 06/15/16 Naina Da Silva NP [address] [place] [address] Referring Family Medicine 09/05/23 Fixture Maker Relationship Specialty Start Date End Date [facility], [facility] PCP - General 05/08/23 Ernesto Carter DO Family Medicine 06/15/16 Naina Da Silva NP [address] [place] [address] Referring Family Medicine 09/05/23 Fixture Maker Relationship Specialty Start Date End Date [facility], [facility] PCP - General 05/08/23 Ernesto Carter DO Family Medicine 06/15/16 Naina Da Silva NP [address] [place] [address] Referring Family Medicine 09/05/23 Team Status: Active Member Role Status Rafael Da Silva MIXER HELPER, MIXER HELPER-C Primary Care Provider Active Dr. Andreas Oliva , DO Attending Provider, Referring Provider Active Fixture Maker Relationship Specialty Start Date End Date [facility], [facility] PCP - General 05/08/23 Ernesto Carter DO Family Medicine 06/15/16 Naina Da Silva NP [address] [place] [address] Referring Family Medicine 09/05/23 Fixture Maker Relationship Specialty Start Date End Date [facility], [facility] PCP - General 05/08/23 Ernesto Carter DO Family Medicine 06/15/16 Naina Da Silva NP [address] [place] [address] Referring [facility] 09/05/23 Team Status: Active Member Role Status Dates [facility] Family Provider Active Naina SANTOSC, MIXER HELPER-C Primary Care Provider Activ e Team Status: Inactive Member Role Status Dates Naina Da Silva VSC, MIXER HELPER-C Primary Care Provider Activ e Start: May 14, 2024 End: May 15, 2024 Dr. Stan Lin DO Emergency Provider Active Start: May 14, 2024 End: May 15, 2024 Team Status: Inactive Member Role Status Dates Naina SANTOSC, MIXER HELPER-C Primary Care Provider Activ e Start: May 07, 2024 End: May 07, 2024 Karuna Lim VSC, MIXER HELPER-C Attending Provider Active Start: May 07, 2024 End: May 07, 2024 Team Status: Active Member Role Status Dates Karuna Lim VSC, MIXER HELPER-C Primary Care Provider Active Team Status: Inactive Member Role Status Dates Naina SANTOSC, MIXER HELPER-C Primary Care Provider Activ e Start: May [...] Status: Inactive Member Role Status Dates Naina Avinash VSC, MIXER HELPER-C Primary Care Provider Activ e Start: May 14, 2024 End: May 15, 2024 Dr. Stan Lin DO Attending Provider Active Start: May 14, 2024 End: May 15, 2024 Dr. Stan Lin DO Emergency Provider Active Start: May 14, 2024 End: May 15, 2024 Team Status: Inactive Member Role Status Dates Karina Guerra MIXER HELPER, MIXER HELPER-C Attending Provider Active Start: May 23, 2024 End: May 23, 2024 Karina Guerra MIXER HELPER, MIXER HELPER-C Referring Provider Active Start: May 23, 2024 End: May 23, 2024 Zebulun Beam VSC, MIXER HELPER-C Primary Care Provider Active Start: May 23, 2024 End: May 23, 2024 Team Status: Inactive Member Role Status Dates Naina Da Silva VSC, MIXER HELPER-C Referring Provider Active Start: May 29, 2024 End: May 29, 2024 Shawanda Ramires MIXER HELPER, MIXER HELPER-C Attending Provider Active Start: May 29, 2024 End: May 29, 2024 Zebulun Beam VSC, MIXER HELPER-C Primary Care Provider Active Start: May 29, 2024 End: May 29, 2024 Team Status: Inactive Member Role Status Dates Zebulun Beam VSC, MIXER HELPER-C Primary Care Provider Active Start: June 02, 2024 End: June 02, 2024 Ed Physician Provider Emergency Provider Active Start: June 02, 2024 End: June 02, 2024 Fixture Maker Relationship Specialty Start Date End Date [facility] PCP - General 05/08/23 Ernesto Carter DO Family Medicine 06/15/16 Naina Da Silva NP [address] [place] [address] Referring Family Medicine 09/05/23 Team Status: Active Member Role Status Dates Zebulun Beam VSC, MIXER HELPER-C Primary Care Provider Active Start: June 03, 2024 Zebulun Beam VSC, MIXER HELPER-C Attending Provider Active Start: June 03, 2024 Zebulun Beam VSC, MIXER HELPER-C Referring Provider Active Start: June 03, 2024 Team Status: Inactive Member Role Status Dates Zebulun Beam VSC, MIXER HELPER-C Primary Care Provider Active Start: June 03, 2024 End: June 03, 2024 Dr. Jaylon Galicia MD Emergency Provider Active Start: June 03, 2024 End: June 03, 2024 Team Status: Inactive Member Role Status Dates Zebulun Beam VSC, MIXER HELPER-C Primary Care Provider Active Start: June 02, 2024 End: June 02, 2024 Ed Physician Provider Attending Provider Active Start: June 02, 2024 End: June 02, 2024 Ed Physician Provider Emergency Provider Active Start: June 02, 2024 End: June 02, 2024 Team Status: Inactive Member Role Status Dates Zebulun Beam VSC, MIXER HELPER-C Primary Care Provider Active Start: June 03, 2024 End: June 03, 2024 Zebulun Beam VSC, MIXER HELPER-C Attending Provider Active Start: June 03, 2024 End: June 03, 2024 Zebulun Beam VSC, MIXER HELPER-C Referring Provider Active Start: June 03, 2024 End: June 03, 2024 Team Status: Inactive Member Role Status Dates Zebulun Beam VSC, MIXER HELPER-C Primary Care Provider Active Start: June 03, 2024 End: June 03, 2024 Dr. Jaylon Galicia MD Attending Provider Active Start: June 03, 2024 End: June 03, 2024 Dr. Jaylon Galicia MD Emergency Provider Active Start: June 03, 2024 End: June 03, 2024 Team Status: Active Member Role Status Dates Zebulun Beam VSC, MIXER HELPER-C Primary Care Provider Active Start: June 05, 2024 Shawanda Ramires MIXER HELPER, MIXER HELPER-C Attending Provider Active Start: June 05, 2024 Shawanda Ramires MIXER HELPER, MIXER HELPER-C Referring Provider Active Start: June 05, 2024 Team Status: Inactive Member Role Status Dates Zebulun Beam VSC, MIXER HELPER-C Primary Care Provider Active Start: June 10, 2024 End: June 10, 2024 Zebulun Beam VSC, MIXER HELPER-C Attending Provider Active Start: June 10, 2024 End: June 10, 2024 Team Status: Inactive Member Role Status Dates Zebulun Beam VSC, MIXER HELPER-C Primary Care Provider Active Start: June 20, 2024 End: June 20, 2024 Shawanda Ramires MIXER HELPER, MIXER HELPER-C Attending Provider Active Start: June 20, 2024 End: June 20, 2024 Shawanda Ramires MIXER HELPER, MIXER HELPER-C Referring Provider Active Start: June 20, 2024 End: June 20, 2024 Team Status: Active Member Role Status Dates Zebulun Beam VSC, MIXER HELPER-C Primary Care Provider Active Start: June 20, 2024 Dr. Ozzy Greco MD Attending Provider Active S tart: June 20, 2024 Fixture Maker Relationship Specialty Start Date End Date [facility], [facility] PCP - General 05/08/23 Ernesto Carter DO Family Medicine 06/15/16 Naina Da Silva NP [address] [place] [address] Referring Family Medicine 09/05/23 Team Status: Active Member Role Status Dates Zebuluadalgisa Beam VSC, MIXER HELPER-C Primary Care Provider Active Start: June 05, 2024 Dr. Marco Bartlett MD Attending Provider Active Start: June 05, 2024 Shawanda Ramires MIXER HELPER, MIXER HELPER-C Referring Provider Active Start: June 05, 2024 Team Status: Active Member Role Status Dates Zebulun Beam VSC, MIXER HELPER-C Primary Care Provider Active Start: June 20, 2024 Dr. Ozzy Greco MD Attending Provider Active S tart: June 20, 2024 Shawanda Ramires MIXER HELPER, MIXER HELPER-C Referring Provider Active Start: June 20, 2024 Team Status: Inactive Member Role Status Dates Naina Da Silva VSC, MIXER HELPER-C Referring Provider Active Start: July 08, 2024 End: July 08, 2024 Dr. Andreas Oliva DO Attending Provider Active Start: July 08, 2024 End: July 08, 2024 Zebulun Beam VSC, MIXER HELPER-C Primary Care Provider Active Start: July 08, 2024 End: July 08, 2024 Fixture Maker Relationship Specialty Start Date End Date Clinic, [facility] PCP - General 05/08/23 Ernesto Carter DO Family Medicine 06/15/16 Naina Da Silva NP [address] [place], [place] [id number] Referring Family Medicine 09/05/23 Team Status: Inactive Member Role Status Dates Zebulun Beam VSC, MIXER HELPER-C Primary Care Provider Active Start: July 24, 2024 End: July 24, 2024 Zebulun Beam VSC, MIXER HELPER-C Referring Provider Active Start: July 24, 2024 End: July 24, 2024 Shawanda Ramires MIXER HELPER, MIXER HELPER-C Attending Provider Active Start: July 24, 2024 End: July 24, 2024 Fixture Maker Relationship Specialty Start Date [facility] - [facility] Ernesto Carter DO Family Medicine 06/15/16 Naina Da Silva NP [address] [place], [place] [id number] Referring Family Medicine 09/05/23 Team Status: Inactive Member Role Status Dates Zebulun Beam VSC, MIXER HELPER-C Primary Care Provider Active Start: August 07, 2024 End: August 07, 2024 Dr. Andreas Oliva DO Attending Provider Active Start: August 07, 2024 End: August 07, 2024 Dr. Andreas Oliva DO Referring Provider Active Start: August 07, 2024 End: August 07, 2024 Fixture Maker Relationship Specialty Start Date [facility] - [facility] 05/08[facility]23 Ernesto Carter DO Family Medicine 06/15/16 Naina Da Silva NP [address] [place], [place] [id number] Referring Family Medicine 09/05/23 Fixture Maker Relationship Specialty Start Date End Date Deisy, Daniel Tierney PCP - General 05/08/23 Ernesto Carter DO Family Medicine 06/15/16 AvinashRanNainaSIRENA contreras [address] [place] [address] Referring Family Medicine 09/05/23 Team Status: Active Member Role/Relationship Status Dates Karuna Lim VSC, MIXER HELPER-C Primary Care Provider Active Team Status: Inactive Member Role/Relationship Status Dates Naina Da Silva VSC, MIXER HELPER-C Primary Care Provider Activ e Start: May 07, 2024 End: May 07, 2024 Karuna Lim VSC, MIXER HELPER-C Attending Provider Active Start: May 07, 2024 End: May 07, 2024 Team Status: Inactive Member Role/Relationship Status Dates Naina SANTOSC, MIXER HELPER-C Primary Care Provider Activ e Start: May [...] Inactive Member Role/Relationship Status Dates Naina SANTOSC, MIXER HELPER-C Primary Care Provider Activ e Start: May 14, 2024 End: May 15, 2024 Dr. Stan Lni DO Attending Provider Active Start: May 14, 2024 End: May 15, 2024 Dr. Stan Lin DO Emergency Provider Active Start: May 14, 2024 End: May 15, 2024 Team Status: Inactive Member Role/Relationship Status Dates Karina Guerra MIXER HELPER, MIXER HELPER-C Attending Provider Active Start: May 23, 2024 End: May 23, 2024 Karina Guerra MIXER HELPER, MIXER HELPER-C Referring Provider Active Start: May 23, 2024 End: May 23, 2024 Vazquezbudeb Lim VSC, MIXER HELPER-C Primary Care Provider Active Start: May 23, 2024 End: May 23, 2024 Team Status: Inactive Member Role/Relationship Status Dates Naina Da Silva VSC, MIXER HELPER-C Referring Provider Active Start: May 29, 2024 End: May 29, 2024 Shawanda Ramires MIXER HELPER, MIXER HELPER-C Attending Provider Active Start: May 29, 2024 End: May 29, 2024 Zebulun Beam VSC, MIXER HELPER-C Primary Care Provider Active Start: May 29, 2024 End: May 29, 2024 Team Status: Inactive Member Role/Relationship Status Dates Zebulun Beam VSC, MIXER HELPER-C Primary Care Provider Active Start: June 02, 2024 End: June 02, 2024 Ed Physician Provider Attending Provider Active Start: June 02, 2024 End: June 02, 2024 Ed Physician Provider Emergency Provider Active Start: June 02, 2024 End: June 02, 2024 Team Status: Inactive Member Role/Relationship Status Dates Zebulun Beam VSC, MIXER HELPER-C Primary Care Provider Active Start: June 03, 2024 End: June 03, 2024 Zebulun Beam VSC, MIXER HELPER-C Attending Provider Active Start: June 03, 2024 End: June 03, 2024 Zebulun Beam VSC, MIXER HELPER-C Referring Provider Active Start: June 03, 2024 End: June 03, 2024 Team Status: Inactive Member Role/Relationship Status Dates Zebulun Beam VSC, MIXER HELPER-C Primary Care Provider Active Start: June 03, 2024 End: June 03, 2024 Dr. Jaylon Galicia MD Attending Provider Active Start: June 03, 2024 End: June 03, 2024 Dr. Jaylon Galicia MD Emergency Provider Active Start: June 03, 2024 End: June 03, 2024 Team Status: Active Member Role/Relationship Status Dates Zebulun Beam VSC, MIXER HELPER-C Primary Care Provider Active Start: June 05, 2024 Shawanda Ramires MIXER HELPER, MIXER HELPER-C Attending Provider Active Start: June 05, 2024 Shawanda Ramires MIXER HELPER, MIXER HELPER-C Referring Provider Active Start: June 05, 2024 Team Status: Active Member Role/Relationship Status Dates Zebulun Beam VSC, MIXER HELPER-C Primary Care Provider Active Start: June 05, 2024 Dr. Marco Bartlett MD Attending Provider Active Start: June 05, 2024 Shawanda Ramires MIXER HELPER, MIXER HELPER-C Referring Provider Active Start: June 05, 2024 Team Status: Inactive Member Role/Relationship Status Dates Zebulun Beam VSC, MIXER HELPER-C Primary Care Provider Active Start: June 10, 2024 End: June 10, 2024 Zebulun Beam VSC, MIXER HELPER-C Attending Provider Active Start: June 10, 2024 End: June 10, 2024 Team Status: Inactive Member Role/Relationship Status Dates Zebulun Beam VSC, MIXER HELPER-C Primary Care Provider Active Start: June 20, 2024 End: June 20, 2024 Shawanda Ramires MIXER HELPER, MIXER HELPER-C Attending Provider Active Start: June 20, 2024 End: June 20, 2024 Shawanda Ramires MIXER HELPER, MIXER HELPER-C Referring Provider Active Start: June 20, 2024 End: June 20, 2024 Team Status: Active Member Role/Relationship Status Dates Zebulun Beam VSC, MIXER HELPER-C Primary Care Provider Active Start: June 20, 2024 Dr. Ozzy Greco MD Attending Provider Active S tart: June 20, 2024 Shawanda Ramires MIXER HELPER, MIXER HELPER-C Referring Provider Active Start: June 20, 2024 Team Status: Inactive Member Role/Relationship Status Dates Naina Da Silva VSC, MIXER HELPER-C Referring Provider Active Start: July 08, 2024 End: July 08, 2024 Dr. Andreas Oliva DO Attending Provider Active Start: July 08, 2024 End: July 08, 2024 Zebulun Beam VSC, MIXER HELPER-C Primary Care Provider Active Start: July 08, 2024 End: July 08, 2024 Team Status: Inactive Member Role/Relationship Status Dates Zebulun Beam VSC, MIXER HELPER-C Primary Care Provider Active Start: July 24, 2024 End: July 24, 2024 Zebulun Beam VSC, MIXER HELPER-C Referring Provider Active Start: July 24, 2024 End: July 24, 2024 Shawanda Ramires MIXER HELPER, MIXER HELPER-C Attending Provider Active Start: July 24, 2024 End: July 24, 2024 Team Status: Inactive Member Role/Relationship Status Dates Zebulun Beam VSC, MIXER HELPER-C Primary Care Provider Active Start: August 07, 2024 End: August 07, 2024 Dr. Andreas Oliva DO Attending Provider Active Start: August 07, 2024 End: August 07, 2024 Dr. Andreas Oliva , DO Referring Provider Active Start: August 07, 2024 End: August 07, 2024 Team Status: Active Member Role/Relationship Status Dates Karuna Lim VSC, MIXER HELPER-C Primary Care Provider Active Start: September 02, 2024 Naina Da Silva VSC, MIXER HELPER-C Attending Provider Active Start: September 02, 2024 Team Status: Inactive Member Role/Relationship Status Dates Zebudeb Beam VSC, MIXER HELPER-C Primary Care Provider Active Start: September 04, 2024 End: September 04, 2024 Dr. Alexandr Smith , DO Emergency Provider Active Start: September 04, 2024 End: September 04, 2024 Team Status: Inactive Member Role/Relationship Status Dates Naina Da Silva VSC, MIXER HELPER-C Primary Care Provider Activ e Start: May 14, 2024 End: May 15, 2024 Dr. Stan Lin , Attending Provider Active Start: May 14, 2024 End: May 15, 2024 Dr. Stan Lin , Emergency Provider Active Start: May 14, 2024 End: May 15, 2024 Team Status: Inactive Member Role/Relationship Status Dates Karina Guerra MIXER HELPER, MIXER HELPER-C Attending Provider Active Start: May 23, 2024 End: May 23, 2024 Karina Guerra MIXER HELPER, MIXER HELPER-C Referring Provider Active Start: May 23, 2024 End: May 23, 2024 Zebudeb Lim VSC, MIXER HELPER-C Primary Care Provider Active Start: May 23, 2024 End: May 23, 2024 Team Status: Inactive Member Role/Relationship Status Dates Naina Da Silva VSC, MIXER HELPER-C Referring Provider Active Start: May 29, 2024 End: May 29, 2024 Shawanda aRmires MIXER HELPER, MIXER HELPER-C Attending Provider Active Start: May 29, 2024 End: May 29, 2024 Karuna Beam VSC, MIXER HELPER-C Primary Care Provider Active Start: May 29, 2024 End: May 29, 2024 Team Status: Inactive Member Role/Relationship Status Dates Karuna Lim VSC, MIXER HELPER-C Primary Care Provider Active Start: June 02, 2024 End: June 02, 2024 Ed Physician Provider Attending Provider Active Start: June 02, 2024 End: June 02, 2024 Ed Physician Provider Emergency Provider Active Start: June 02, 2024 End: June 02, 2024 Team Status: Inactive Member Role/Relationship Status Dates Zebulun Beam VSC, MIXER HELPER-C Primary Care Provider Active Start: June 03, 2024 End: June 03, 2024 Zebulun Beam VSC, MIXER HELPER-C Attending Provider Active Start: June 03, 2024 End: June 03, 2024 Zebulun Beam VSC, MIXER HELPER-C Referring Provider Active Start: June 03, 2024 End: June 03, 2024 Team Status: Inactive Member Role/Relationship Status Dates Zebulun Beam VSC, MIXER HELPER-C Primary Care Provider Active Start: June 03, 2024 End: June 03, 2024 Dr. Jaylon Galicia MD Attending Provider Active Start: June 03, 2024 End: June 03, 2024 Dr. Jaylon Galicia MD Emergency Provider Active Start: June 03, 2024 End: June 03, 2024 Team Status: Active Member Role/Relationship Status Dates Zebulun Beam VSC, MIXER HELPER-C Primary Care Provider Active Start: June 05, 2024 Shawanda Ramires MIXER HELPER, MIXER HELPER-C Attending Provider Active Start: June 05, 2024 Shawanda Ramires MIXER HELPER, MIXER HELPER-C Referring Provider Active Start: June 05, 2024 Team Status: Active Member Role/Relationship Status Dates Zebulun Beam VSC, MIXER HELPER-C Primary Care Provider Active Start: June 05, 2024 Dr. Marco Bartlett MD Attending Provider Active Start: June 05, 2024 Shawanda Ramires MIXER HELPER, MIXER HELPER-C Referring Provider Active Start: June 05, 2024 Team Status: Inactive Member Role/Relationship Status Dates Zebulun Beam VSC, MIXER HELPER-C Primary Care Provider Active Start: June 10, 2024 End: June 10, 2024 Zebulun Beam VSC, MIXER HELPER-C Attending Provider Active Start: June 10, 2024 End: June 10, 2024 Team Status: Inactive Member Role/Relationship Status Dates Zebulun Beam VSC, MIXER HELPER-C Primary Care Provider Active Start: June 20, 2024 End: June 20, 2024 Shawanda Ramires MIXER HELPER, MIXER HELPER-C Attending Provider Active Start: June 20, 2024 End: June 20, 2024 Shawanda Ramires MIXER HELPER, MIXER HELPER-C Referring Provider Active Start: June 20, 2024 End: June 20, 2024 Team Status: Active Member Role/Relationship Status Dates Zebulun Beam VSC, MIXER HELPER-C Primary Care Provider Active Start: June 20, 2024 Dr. Ozzy Greco MD Attending Provider Active S tart: June 20, 2024 Shawanda Ramires MIXER HELPER, MIXER HELPER-C Referring Provider Active Start: June 20, 2024 Team Status: Inactive Member Role/Relationship Status Dates Naina Da Silva VSC, MIXER HELPER-C Referring Provider Active Start: July 08, 2024 End: July 08, 2024 Dr. Andreas Oliva DO Attending Provider Active Start: July 08, 2024 End: July 08, 2024 Zebulun Beam VSC, MIXER HELPER-C Primary Care Provider Active Start: July 08, 2024 End: July 08, 2024 Team Status: Inactive Member Role/Relationship Status Dates Zebulun Beam VSC, MIXER HELPER-C Primary Care Provider Active Start: July 24, 2024 End: July 24, 2024 Zebulun Beam VSC, MIXER HELPER-C Referring Provider Active Start: July 24, 2024 End: July 24, 2024 Shawanda Ramires MIXER HELPER, MIXER HELPER-C Attending Provider Active Start: July 24, 2024 End: July 24, 2024 Team Status: Inactive Member Role/Relationship Status Dates Zebulun Beam VSC, MIXER HELPER-C Primary Care Provider Active Start: August 07, 2024 End: August 07, 2024 Dr. Andreas Oliva DO Attending Provider Active Start: August 07, 2024 End: August 07, 2024 Dr. Andreas Oliva DO Referring Provider Active Start: August 07, 2024 End: August 07, 2024 Team Status: Inactive Member Role/Relationship Status Dates Zebulun Beam VSC, MIXER HELPER-C Primary Care Provider Active Start: September 02, 2024 End: September 02, 2024 Naina Da Silva VSC, MIXER HELPER-C Attending Provider Active Start: September 02, 2024 End: September 02, 2024 Team Status: Inactive Member Role/Relationship Status Dates Zebulun Beam VSC, MIXER HELPER-C Primary Care Provider Active Start: September 04, 2024 End: September 04, 2024 Dr. Alexandr Smith DO Emergency Provider Active Start: September 04, 2024 End: September 04, 2024 Fixture Maker Relationship Specialty Start Date End Date Daniel Olivas [facility] PCP - General 05/08/23 Ernesto Carter DO Family Medicine 06/15/16 Naina Da Silva NP [address] [place] [address] Referring Family Medicine 09/05/23 Team Status: Inactive Member Role/Relationship Status Dates Naina Da Silva VSC, MIXER HELPER-C Referring Provider Active Start: May 29, 2024 End: May 29, 2024 Shawanda Ramires MIXER HELPER, MIXER HELPER-C Attending Provider Active Start: May 29, 2024 End: May 29, 2024 Zebulun Beam VSC, MIXER HELPER-C Primary Care Provider Active Start: May 29, 2024 End: May 29, 2024 Team Status: Inactive Member Role/Relationship Status Dates Zebulun Beam VSC, MIXER HELPER-C Primary Care Provider Active Start: June 02, 2024 End: June 02, 2024 Ed Physician Provider Attending Provider Active Start: June 02, 2024 End: June 02, 2024 Ed Physician Provider Emergency Provider Active Start: June 02, 2024 End: June 02, 2024 Team Status: Inactive Member Role/Relationship Status Dates Zebulun Beam VSC, MIXER HELPER-C Primary Care Provider Active Start: June 03, 2024 End: June 03, 2024 Zebulun Beam VSC, MIXER HELPER-C Attending Provider Active Start: June 03, 2024 End: June 03, 2024 Zebulun Beam VSC, MIXER HELPER-C Referring Provider Active Start: June 03, 2024 End: June 03, 2024 Team Status: Inactive Member Role/Relationship Status Dates Zebulun Beam VSC, MIXER HELPER-C Primary Care Provider Active Start: June 03, 2024 End: June 03, 2024 Dr. Jaylon Galicia MD Attending Provider Active Start: June 03, 2024 End: June 03, 2024 Dr. Jaylon Galicia MD Emergency Provider Active Start: June 03, 2024 End: June 03, 2024 Team Status: Active Member Role/Relationship Status Dates Zebulun Beam VSC, MIXER HELPER-C Primary Care Provider Active Start: June 05, 2024 Shawanda Ramires MIXER HELPER, MIXER HELPER-C Attending Provider Active Start: June 05, 2024 Shawanda Ramires MIXER HELPER, MIXER HELPER-C Referring Provider Active Start: June 05, 2024 Team Status: Active Member Role/Relationship Status Dates Zebulun Beam VSC, MIXER HELPER-C Primary Care Provider Active Start: June 05, 2024 Dr. Marco Bartlett MD Attending Provider Active Start: June 05, 2024 Shawanda Ramires MIXER HELPER, MIXER HELPER-C Referring Provider Active Start: June 05, 2024 Team Status: Inactive Member Role/Relationship Status Dates Zebulun Beam VSC, MIXER HELPER-C Primary Care Provider Active Start: June 10, 2024 End: June 10, 2024 Zebulun Beam VSC, MIXER HELPER-C Attending Provider Active Start: June 10, 2024 End: June 10, 2024 Team Status: Inactive Member Role/Relationship Status Dates Zebulun Beam VSC, MIXER HELPER-C Primary Care Provider Active Start: June 20, 2024 End: June 20, 2024 Shawanda Ramires MIXER HELPER, MIXER HELPER-C Attending Provider Active Start: June 20, 2024 End: June 20, 2024 Shawanda Ramires MIXER HELPER, MIXER HELPER-C Referring Provider Active Start: June 20, 2024 End: June 20, 2024 Team Status: Active Member Role/Relationship Status Dates Zebulun Beam VSC, MIXER HELPER-C Primary Care Provider Active Start: June 20, 2024 Dr. Ozzy Greco MD Attending Provider Active S tart: June 20, 2024 Shawanda Ramires MIXER HELPER, MIXER HELPER-C Referring Provider Active Start: June 20, 2024 Team Status: Inactive Member Role/Relationship Status Dates Naina Da Silva VSC, MIXER HELPER-C Referring Provider Active Start: July 08, 2024 End: July 08, 2024 Dr. Andreas Oliva DO Attending Provider Active Start: July 08, 2024 End: July 08, 2024 Zebulun Beam VSC, MIXER HELPER-C Primary Care Provider Active Start: July 08, 2024 End: July 08, 2024 Team Status: Inactive Member Role/Relationship Status Dates Zebulun Beam VSC, MIXER HELPER-C Primary Care Provider Active Start: July 24, 2024 End: July 24, 2024 Zebulun Beam VSC, MIXER HELPER-C Referring Provider Active Start: July 24, 2024 End: July 24, 2024 Shawanda Ramires MIXER HELPER, MIXER HELPER-C Attending Provider Active Start: July 24, 2024 End: July 24, 2024 Team Status: Inactive Member Role/Relationship Status Dates Zebulun Beam VSC, MIXER HELPER-C Primary Care Provider Active Start: August 07, 2024 End: August 07, 2024 Dr. Andreas Oliva DO Attending Provider Active Start: August 07, 2024 End: August 07, 2024 Dr. Andreas Oliva DO Referring Provider Active Start: August 07, 2024 End: August 07, 2024 Team Status: Inactive Member Role/Relationship Status Dates Zebuluadalgisa Beam VSC, MIXER HELPER-C Primary Care Provider Active Start: September 02, 2024 End: September 02, 2024 Naina Da Silva VSC, MIXER HELPER-C Attending Provider Active Start: September 02, 2024 End: September 02, 2024 Team Status: Inactive Member Role/Relationship Status Dates Zebudeb Beam VSC, MIXER HELPER-C Primary Care Provider Active Start: September 04, 2024 End: September 04, 2024 Dr. Alexandr Smith DO Attending Provider Active Start: September 04, 2024 End: September 04, 2024 Dr. Alexandr Smith DO Emergency Provider Active Start: September 04, 2024 End: September 04, 2024 Team Status: Inactive Member Role/Relationship Status Dates Zebulun Beam VSC, MIXER HELPER-C Primary Care Provider Active Start: September 21, 2024 End: September 21, 2024 Rodolfo Das MD Emergency Provider Active Star t: September 21, 2024 End: September 21, 2024 Team Status: Inactive Member Role/Relationship Status Dates Zebulun Beam VSC, MIXER HELPER-C Primary Care Provider Active Start: September 25, 2024 End: September 25, 2024 Vazquezbueliezern Beam VSC, MIXER HELPER-C Referring Provider Active Start: September 25, 2024 End: September 25, 2024 Dr. Andreas Oliva DO Attending Provider Active Start: September 25, 2024 End: September 25, 2024 Reason for Visit (unrecogniz ed section and [...] (MNT) MEDICAL NUTRITION ASSMT&IVNTJ INDIV EACH 15 FL MEDICAL NUTRITION ASSMT&IVNTJ INDIV EACH 15 FL MEDICAL NUTRITION ASSMT&IVNTJ INDIV EACH 15 [place] MEDICAL NUTRITION ASSMT&IVNTJ INDIV EACH 15 FL Jey Johnson MD [address] [place] [address] Referral ID Status Reason Start Date Expiration Date V isits Requested Visits Authorized [id number] Closed PCP Requested Referral 01/08/2024 01/07/2025 1 1 Reason Comments Diarrhea vomiting, cough, chi lls and fever x 4 days Reason Comments Established Patient Follow-Up Reason Comments Medical Weight Management Specialty Diagnoses / Procedures Referred By Contac t Referred To Contact Diagnoses Obesity, Class III, BMI 40-49.9 (morbid obesity) (HCC) PCOS (polycystic ovarian syndrome) Procedures ENDOCRINE MEDICAL WEIGHT MANAGEMENT OFFICE/OUTPATIENT [facility] 60 MINUTES Jey Johnson MD [address] [place] [address] Phone: tel: fax: Referral ID Status Reason Start Date Expiration Date V isits Requested Visits Authorized [id number] Closed PCP Requested Referral 04/15/2024 04/15/2025 1 1 Reason Comments Obesity Reason Comments Refill Request Reason Comments Follow Up Reason Comments Ambulatory Social Work Reason Onset Date Comments Refill Request 09/19/2024 FOR RECORDS PERTAINING TO PATIENTS WHO ARE [...] BE BASED ON THE PRIMARY CLINICAL RECORDS. [facility]. provides no warranty or guarantee of the accuracy or completeness of information in this document.
[2024-09-27 13:55] LABS: Barbiturate Urine NEGATIVE (< 200 ng/mL); Benzodiazepine Urine NEGATIVE (< 200 ng/mL); PCP Urine NEGATIVE (< 25 ng/mL); THC Urine NEGATIVE (< 50 ng/mL)
[2024-09-27] MEDS: Diphenoxylate/Atrop 1 Tablet PO (16:25)
--- NOTE | 2024-09-27 18:05 | PCA ---
PT ACCEPTED AT [place] [id number]RAY Gandara [phone] [facility] CALLED
[2024-09-27 20:42] VITALS: BP 146/95; PULSE 95; RESP 20; TEMP 35.7; O2SAT 100
--- NOTE | 2024-09-27 21:14 | ED.RN ---
offered pt HS medications before transferring to [facility], patient stated she would like to wait until she arrived at facility.
--- NOTE | 2024-09-27 21:28 | ED.RN ---
attempted twice to call Joycelyn Watt, no answer either time
== END 2024-09-27 21:21 ==
PROVIDERS: Emergency Provider Emergency Medicine; Referring Provider Emergency Medicine; Visit Provider Emergency Medicine
DX: R45.851 Suicidal ideations (principal); F31.9 Bipolar disorder, unspecified; E11.43 Type 2 diabetes mellitus with diabetic autonomic (poly)neuropathy; Z79.899 Other long term (current) drug therapy
CPT/HCPCS: 80053; 80307; 82077; 84703; 85025; 96360; 99285; A4216

== ENCOUNTER 2024-10-27 09:37 | Day surgery (SDC) | payer MEDICAID, SELFPAY ==
--- NOTE | 2024-10-24 14:21 | PAT.ANE_ITS ---
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 When Was Last Pacemaker Check QUESTION #4 FULL TEXT: You/Your Family Experience fever (hyperthermia) with Anesthesia Last Oral Intake Last Oral intake: Last Oral Intake NPO since Meds taken in AM with sips of water? Meds patient instructed to take am of surgery PONV PONV - filter machine operator: PONV - filter machine operator Female Yes 10/24/24 10:50 HX of Motion Sickness Yes 10/24/24 10:50 HX of N/V After Surgery Yes 10/24/24 10:50 Non-Smoker Yes 10/24/24 10:50 Duration of Surgery greater No 10/24/24 10:50 than 60 minutes Number of Risk Factors 4 10/24/24 10:50 PONV Score Severe Risk 10/24/24 10:50 Height & Weight Height & Weight: Anesthesia: Height & Weight Height 5 ft 6.14 in 07/24/24 07:25 Respiratory Assessment Respiratory Assessment - filter machine operator: Respiratory Tract Infection Hx - filter machine operator Hx Respiratory Tract Infection No 10/24/24 10:50 STOP Sleep Apnea STOP Sleep Apnea - filter machine operator: STOP Sleep Apnea - filter machine operator Hx Hypertension Yes: CONTROLLED WITH MED 10/24/24 10:50 Hx Sleep Apnea No 10/24/24 10:50 CPAP BIPAP Do you snore loudly (louder No 10/24/24 10:50 than talking or can be heard Do you often feel tired/ No 10/24/24 10:50 fatigued/ sleepy during daytime? Has anyone observed you stop No 10/24/24 10:50 breathing during sleep? STOP Results Negative 10/24/24 10:50 QUESTION #5 FULL TEXT : Do you snore loudly (louder than talking or can be heard through closed doors)? 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 Specify any problems Hx of Preganancy in last 3 No 10/24/24 10:50 Months Nurse Filling Out Transfusion DSCHRIBER 10/24/24 10:50 & Questions: Date: 10/24/24 10/24/24 10:50 Time: 10:52 10/24/24 10:50 Patient unable to answer at this time (ie. confused, unrespo /Reproduction History /Reproductive History - filter machine operator: /Reproductive Hx- filter machine operator Hx Now No 10/24/24 10:50 Gestational Age (in weeks): EDC: Hx Hx Para Hx Section SAB No 10/24/24 10:50 PFSH Medical History (Updated 10/24/24 @ 11:00 by Kristin Reardon) Dietary restriction Shortness of breath on exertion History of pain when walking Alcohol use Picking own skin Low iron Fatty liver Gastroparesis Cardiology follow-up encounter Obesity Depression Diabetes GERD (gastroesophageal reflux disease) Irregular heart beat Cellulitis History of echocardiogram Wears glasses Bipolar disorder Anxiety Arthritis Back pain Migraine headache Syncope Non-smoker Bipolar 1 disorder PCOS (polycystic ovarian syndrome) IBS (irritable bowel syndrome) Autism Home Medications ?Medication ?Instructions ?Recorded ?Last Taken ?Type lithium carbonate 300 mg capsule 300 mg PO DAILY Bipol ar 04/05/17 09/27/24 History ferrous sulfate 325 mg (65 mg 325 mg PO QODAY suppleme nt 01/24/22 10/24/24 History iron) tablet (FeroSul) lithium carbonate 600 mg capsule 600 mg PO QHS mental health 01/24/22 09/26/24 History aripiprazole lauroxil 441 mg/1.6 441 mg IM .Q28 DAYS m [facility] 12/18/22 09/24/24 History mL suspension, ext.rel. IM syringe ([place]) cholecalciferol (vitamin D3) 25 25 mcg PO DAILY vitami n 12/18/22 09/26/24 Hi story mcg (1,000 unit) tablet (Vitamin D3) imipramine HCl 25 mg tablet 25 mg PO DAILY mental heal th 12/18/22 09/26/24 History pantoprazole 40 mg tablet,delayed 40 mg PO QHS 4 09/26/24 History release simvastatin 20 mg tablet 20 mg PO QHS 06/03/23 History lactulose 10 gram/15 mL oral 30 g (45 mL) PO BID PRN 0 09/28/23 10/21/23 Rx solution constipation #473 mL hyoscyamine sulfate 0.125 mg tablet 0.125 mg PO BID-QI D PRN dyspepsia 10/10/23 10/21/23 Rx #30 tabs diphenoxylate-atropine 2.5 1 tab PO BID PRN diarrhea # 30 tabs 10/29/23 Unknown Rx mg-0.025 mg tablet (Lomotil) dicyclomine 20 mg tablet 20 mg PO TID PRN abdominal p ain 05/08/24 09/23/24 Rx #30 tabs metoclopramide HCl 10 mg tablet 10 mg PO Q6H PRN nause a and 05/08/24 09/26/24 Rx (Reglan) vomiting #20 tabs miscellaneous medical supply #1 ea 05/29/24 Unknown Rx metoprolol tartrate 50 mg tablet 100 mg (2 x 50 mg) PO BID #180 tabs 07/21/24 09/27/24 10:00 Rx amlodipine 2.5 mg tablet 2.5 mg PO BID 09/04/2409/27 10:00 History atogepant 60 mg tablet (Qulipta) 60 mg PO DAILY 09/27/24 History cyanocobalamin (vitamin B-12) 1,000 mcg sublingual YI LY 09/04/24 09/26/24 History 1,000 mcg sublingual tablet norgestimate 0.25 mg-ethinyl 1 tab PO DAILY 09/04/24 U nknown History estradiol 0.035 mg tablet ([place]) rizatriptan 10 mg tablet 10 mg PO Q2H PRN migraine he adache 09/04/24 Unknown History diphenoxylate-atropine 2.5 1 tab PO TID #90 tabs 09/2509/27/24 10:00 Rx mg-0.025 mg tablet polyethylene glycol 3350 17 4 g PO ONCE constipation # 238 grams 10/14/24 Unknown Rx gram/dose oral powder (Miralax) Allergy/AdvReac Type Severity Reaction Status Date / Time metformin Allergy Mild Nausea/Vom/ Verified 10/24/24 10:45 Diarrhea pollen extracts Allergy Hives Verified 10/24/24 10:45 escitalopram (From Lexapro) AdvReac Other Verified 10/24/24 10:45 lactase (From Dairy Aid) AdvReac Upset Verified 10/24/24 10:45 Stomach ondansetron (From Zofran (as AdvReac Anaphylaxis Verified 10/24/24 10:45 hydrochloride)) Family History Mother Uterine cancer Other Asthma Depression Diabetes GERD (gastroesophageal reflux disease) Heart disease Hyperlipidemia Hypertension Surgical History (Updated 10/24/24 @ 11:00 by Kristin Reardon) History of colonoscopy History of esophagogastroduodenoscopy (EGD) History of tonsillectomy and adenoidectomy H/O knee surgery H/O spinal fusion Social History household members: none housing: apartment current occupational status: unemployed history of recent travel: No Smoking Status: Never smoker alcohol intake: current alcohol intake frequency: holidays/special occasions only substance use type: does not use caffeine: Yes Type: carbonated beverages what type of physical activity do you participate in: walking frequency: daily seatbelt use: always do you feel safe at home: Yes additional social history: single Audit: Pertinent Findings Pertinent Findings EKG Perinent findings: September 04, 2024. Normal sinus rhythm. Minimal voltage criteria for LVH. T wave abnormality consider inferior ischemia Echo (EF%) pertinent findings: 12/19/2022. EF is 60%. Valves not well- visualized. Consult pertinent findings: July 24, 2024. Ike BAZAN. 1. [id number]. Continue medical therapy. 2. Syncope-her most recent event monitor on 06/05/2024 demonstrated sinus tachycardia with heart rate of 109 bpm. Continue current medical therapy. Patient is encouraged to stay well-hydrated and wear compression stockings. 3. Palpitations-sinus tachycardia on the latest Holter. Continue metoprolol. Additional pertinent findings: 06/05/2024. 14-day event monitor. Sinus tachycardia at 109 bpm is baseline. VE is less than 1%. SVE is less than 1%. No atrial fibrillation. Recommendation Anesthesia Recommendation Anesthesia recommendation: F/U recommended (Latest EKG of September 04, 2024 reads inferior ischemia which is a change from previous EKGs. Please have cardiology review and clear the patient.)
--- NOTE | 2024-10-24 16:23 | PAT.ANESEVAL ---
Pre-Assessment Diagnosis/Proposed Procedure Planned Operative Procedure(s): CSCOPE Anesthesia History Anesthesia History - technical instructor course developer: Anesthesia History - technical instructor course developer Hx Hospitalization No 10/24/24 10:50 Any Problems With Anesthesia Yes: N,V 10/24/24 10:50 Cholinesterase deficiency No 10/24/24 10:50 You/Your Family Experience No 10/24/24 10:50 fever (hyperthermia) with Relationship Recent Exposure to Contagious No 10/24/23 11:17 Disease Does patient have nerve No 10/24/24 10:50 stimulator Patient instructed to have device shut off --Does patient have Pacemaker or ICD? When Was Last Pacemaker Check QUESTION #4 FULL TEXT: You/Your Family Experience fever (hyperthermia) with Anesthesia Last Oral Intake Last Oral intake: Last Oral Intake NPO since Meds taken in AM with sips of water? Meds patient instructed to take am of surgery PONV PONV - technical instructor course developer: PONV - technical instructor course developer Female Yes 10/24/24 10:50 HX of Motion Sickness Yes 10/24/24 10:50 HX of N/V After Surgery Yes 10/24/24 10:50 Non-Smoker Yes 10/24/24 10:50 Duration of Surgery greater No 10/24/24 10:50 than 60 minutes Number of Risk Factors 4 10/24/24 10:50 PONV Score Severe Risk 10/24/24 10:50 Height & Weight Height & Weight: Anesthesia: Height & Weight Height 5 ft 6.14 in 07/24/24 07:25 Respiratory Assessment Respiratory Assessment - technical instructor course developer: Respiratory Tract Infection Hx - technical instructor course developer Hx Respiratory Tract Infection No 10/24/24 10:50 STOP Sleep Apnea STOP Sleep Apnea - technical instructor course developer: STOP Sleep Apnea - technical instructor course developer Hx Hypertension Yes: CONTROLLED WITH MED 10/24/24 10:50 Hx Sleep Apnea No 10/24/24 10:50 CPAP BIPAP Do you snore loudly (louder No 10/24/24 10:50 than talking or can be heard Do you often feel tired/ No 10/24/24 10:50 fatigued/ sleepy during daytime? Has anyone observed you stop No 10/24/24 10:50 breathing during sleep? STOP Results Negative 10/24/24 10:50 QUESTION #5 FULL TEXT : Do you snore loudly (louder than talking or can be heard through closed doors)? 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 Specify any problems Hx of Preganancy in last 3 No 10/24/24 10:50 Months Nurse Filling Out Transfusion DSCHRIBER 10/24/24 10:50 & Questions: Date: 10/24/24 10/24/24 10:50 Time: 10:52 10/24/24 10:50 Patient unable to answer at this time (ie. confused, unrespo /Reproduction History /Reproductive History - technical instructor course developer: /Reproductive Hx- technical instructor course developer Hx Now No 10/24/24 10:50 Gestational Age (in weeks): EDC: Hx Hx Para Hx Section SAB No 10/24/24 10:50 [facility] Medical History (Updated 10/24/24 @ 11:00 by Kristin Reardon) Dietary restriction Shortness of breath on exertion History of pain when walking Alcohol use Picking own skin Low iron Fatty liver Gastroparesis Cardiology follow-up encounter Obesity Depression Diabetes GERD (gastroesophageal reflux disease) Irregular heart beat Cellulitis History of echocardiogram Wears glasses Bipolar disorder Anxiety Arthritis Back pain Migraine headache Syncope Non-smoker Bipolar 1 disorder PCOS (polycystic ovarian syndrome) IBS (irritable bowel syndrome) Autism Home Medications ?Medication ?Instructions ?Recorded ?Last Taken ?Type lithium carbonate 300 mg capsule 300 mg PO DAILY Bipolar 04/05/17 09/27/24 History ferrous sulfate 325 mg (65 mg 325 mg PO QODAY supplement 01/24/22 10/24/24 History iron) tablet (FeroSul) lithium carbonate 600 mg capsule 600 mg PO QHS mental health 01/24/22 09/26/24 History aripiprazole lauroxil 441 mg/1.6 441 mg IM .Q28 DAYS mental health 12/18/22 09/24/24 History mL suspension, ext.rel. IM syringe ([place]) cholecalciferol (vitamin D3) 25 25 mcg PO DAILY vitamin 12/18/22 09/26/24 History mcg (1,000 unit) tablet (Vitamin D3) imipramine HCl 25 mg tablet 25 mg PO DAILY mental health 12/18/22 09/26/24 History pantoprazole 40 mg tablet,delayed 40 mg PO QHS 06/03/23 09/26/24 History release simvastatin 20 mg tablet 20 mg PO QHS 06/03/23 09/26/24 History lactulose 10 gram/15 mL oral 30 g (45 mL) PO BID PRN 09/28/23 10/21/23 Rx solution constipation #473 mL hyoscyamine sulfate 0.125 mg tablet 0.125 mg PO BID-QID PRN dyspepsia 10/10/23 10/21/23 Rx #30 tabs diphenoxylate-atropine 2.5 1 tab PO BID PRN diarrhea #30 tabs 10/29/23 Unknown Rx mg-0.025 mg tablet (Lomotil) dicyclomine 20 mg tablet 20 mg PO TID PRN abdominal pain 05/08/24 09/23/24 Rx #30 tabs metoclopramide HCl 10 mg tablet 10 mg PO Q6H PRN nausea and 05/08/24 09/26/24 Rx (Reglan) vomiting #20 tabs miscellaneous medical supply #1 ea 05/29/24 Unknown Rx metoprolol tartrate 50 mg tablet 100 mg (2 x 50 mg) PO BID #180 tabs 07/21/24 09/27/24 10:00 Rx amlodipine 2.5 mg tablet 2.5 mg PO BID 09/04/24 09/27/24 10:00 History atogepant 60 mg tablet (Qulipta) 60 mg PO DAILY 09/04/24 09/27/24 History cyanocobalamin (vitamin B-12) 1,000 mcg sublingual DAILY 09/04/24 09/26/24 History 1,000 mcg sublingual tablet norgestimate 0.25 mg-ethinyl 1 tab PO DAILY 09/04/24 Unknown History estradiol 0.035 mg tablet ([place]) rizatriptan 10 mg tablet 10 mg PO Q2H PRN migraine headache 09/04/24 Unknown History diphenoxylate-atropine 2.5 1 tab PO TID #90 tabs 09/25/24 09/27/24 10:00 Rx mg-0.025 mg tablet polyethylene glycol 3350 17 4 g PO ONCE constipation #238 grams 10/14/24 Unknown Rx gram/dose oral powder (Miralax) Allergy/AdvReac Type Severity Reaction Status Date / Time metformin Allergy Mild Nausea/Vom/ Verified 10/24/24 10:45 Diarrhea pollen extracts Allergy Hives Verified 10/24/24 10:45 escitalopram (From Lexapro) AdvReac Other Verified 10/24/24 10:45 lactase (From Dairy Aid) AdvReac Upset Verified 10/24/24 10:45 Stomach ondansetron (From Zofran (as AdvReac Anaphylaxis Verified 10/24/24 10:45 hydrochloride)) Family History Mother Uterine cancer Other Asthma Depression Diabetes GERD (gastroesophageal reflux disease) Heart disease Hyperlipidemia Hypertension Surgical History (Updated 10/24/24 @ 11:00 by Kristin Reardon) History of colonoscopy History of esophagogastroduodenoscopy (EGD) History of tonsillectomy and adenoidectomy H/O knee surgery H/O spinal fusion Social History household members: none housing: apartment current occupational status: unemployed history of recent travel: No Smoking Status: Never smoker alcohol intake: current alcohol intake frequency: holidays/special occasions only substance use type: does not use caffeine: Yes Type: carbonated beverages what type of physical activity do you participate in: walking frequency: daily seatbelt use: always do you feel safe at home: Yes additional social history: single Audit: Pertinent Findings HISTORY of Pertinent Findings History of Pertinent Findings: EKG Pertinent Findings EKG Perinent findings September 04, 2024. Normal sinus 10/24/24 14:24 rhythm. Minimal voltage criteria for LVH. T wave abnormality consider inferior ischemia Echo Pertinent Findings Echo (EF%) pertinent findings 12/19/2022. EF is 60%. 10/24/24 14:24 Valves not well-visualized. Consult Pertinent Findings Consult pertinent findings July 24, 2024. Ike BAZAN. 10/24/24 14:40 1. Hypertension-well- controlled. Continue medical therapy. 2. Syncope-her most recent event monitor on 06/05/2024 demonstrated sinus tachycardia with heart rate of 109 bpm. Continue current medical therapy. Patient is encouraged to stay well-hydrated and wear compression stockings. 3. Palpitations-sinus tachycardia on the latest Holter. Continue metoprolol . Additional Pertinent Findings Additional pertinent findings 06/05/2024. 14-day event 10/24/24 14:40 monitor. Sinus tachycardia at 109 bpm is baseline. VE is less than 1%. SVE is less than 1%. No atrial fibrillation. Pertinent Findings Additional pertinent findings: September 09, 2024. [place]. Patient is cleared for MAC anesthesia for colonoscopy. Recommendation Anesthesia Recommendation Anesthesia recommendation: OPTIMIZED for anesthesia
[2024-10-27] VITALS (8 sets, daily range): BP systolic 133–147; BP diastolic 83–98; PULSE 69–88; RESP 16–20; TEMP 36.6–37.6; O2SAT 100; BMI 46.2
--- NOTE | 2024-10-27 09:53 | HP.PCM_ITS ---
HPI - General General Date of Admission: 10/27/24 Date of Service: 10/27/24 Chief Complaint: diarrhea HPI Narrative DIAZ DOUGLAS, is a 29 F who presents DIAZ DOUGLAS, is a 28 F who presents to the office today for follow up. PMH autism, bipolar type 1, PCOS [facility] ED on multiple occasions over the years with N/V, headache, diarrhea, CP. Stool studies for infection have been performed throughout the years with calprotectin, C.Difficile, EP, O/P WNL each time. CT abd/pel 1.14.16 abd pain/diarrhea mild hepatomegaly, homogeneous; splenomegaly; multiple fluid-filled small bowel loops; diverticulosis. Stool ..16 lactoferrin + US RUQ 2.16.16 abd pain hepatomegaly 18.7cm with fatty infiltration. HIDA 4.24.17 EF 88%. When compared to ..16 scan there is continued evidence of duodenal-gastric reflux. GI and hepatology specialists established in 2018 with diarrhea, bloating, abd pain, N/V and diagnosed with IBS-D and GERD. ? [facility] 18 without positive findings. EGD 18 advanced to small bowel noting bile in stomach and mild gastritis. No pathologic changes. US .. hepatic measurement 18cm with increased echogenicity. ? EGD 09.08.20 advanced to small bowel noting gastritis, mild. Remaining exam without acute/chronic finding. H.Pylori -. ? Colonoscopy 10.08.20 advanced to TI noting internal hemorrhoids without visual abnormality. Without pathologic changes. [facility] ED visits continue as noted above. US RUQ 10.8.21 abd pain hepatomegaly 19cm with fatty infiltration. US ABD ..22 abd pain hepatomegaly 20.2cm with fatty infiltration; splenomegaly. No ascites. Biochemical workup T3, T4, CBC, CMP, TIBC, iron, ferritin, copper, zinc, selenium without pertinent abnormality. ? TSH H4.91 [facility] ED visit prompting referral 01.24.22 with diffuse abdominal pain and diarrhea. She has had issue with diarrhea for many years and has received a diagnosis of IBS-D. Most recent colonoscopy 2020. Discharged without acute concern with cipro/flagyl. ? Biochemical workup CBC, CMP, lipase without concern. LFT AST H63/ALT H160/ AP57 (AST/ALT ratio 0.39). ? CT abd/pel diffuse hepatomegaly, normal spleen; wall thickening of right colon/hepatic flexure. ? Stool studies lactoferrin, EP, C.Difficile, O/P WNL. Calprotectin, elastase, giardia not run. PCP OV as ED f/u 01.31.2022 with biochemical results TSH H4.77; T4WNL. *[facility] established 02.15.[address] [facility] ED presentation. Diaz has had multiple ED visits. Clinic presentation she had concern regarding postprandial nausea and diarrhea with intermittent emesis; feelings of early satiety for several hours resulting in decreased PO intake; left sided abdominal discomfort with frequent stooling with mucous, no blood. Biochemical CMP, CBC, ESR, HIV, ferritin, LDH, coagulation, AMA, ASM, LEN comp, ANCA, hepatitis, CARLA, AFP, celiac, ceruloplasmin, copper, GAME, haptoglobin, XIOMARA, ammonia without pertinent abnormality. A1c H5.9, CRP H4.50, Crohn?s (AMCA, ANCA).? LFT AST 33/ALT H92/AP52 Stool studies lactoferrin, elastase WNL.? Calprotectin H137 ? US and elastography 03.07.22 hepatomegaly 21.5cm with fatty infiltration stiffness measures 11.9kPa; pancreatic increased echogenicity. ? Gastric emptying study 03.15.22 time unable to be calculated. Contact with results; start Zenpep and reglan OV 06.06.22 She continues to have difficulty with nausea and loose stools with reduction of severity and frequency. She felt zenpep caused her to have increased flatulence. Reglan not being taken as she thought it was PRN. ? EGD and colonoscopy 08.08.22 EGD non-severe esophagitis, no path changes; gastritis; duodenitis. ? Colonoscopy mildly congested mucosa RS and sigmoid colon, no path changes; IC pathology focal acute enteritis, nonspecific. OV 08.29.22 reglan not being taken regularly as she thought it was PRN. Start famotidine ? Biochemical CBC, CMP, D25, T4 without pertinent abnormality ? A1c H6.7, AST H94-ALT H199-AP 75, triglycerides H215, cholesterol H, B12 H1606, TSH H3.75 ? MREnterography 09.19.22 marked mucosal hyperenhancement of short segments of small bowel including TI; limited study r/t underdistention of bowel. Contact 10.10.22 with results, Start budesonide. OV 01.30.23 BM typically normal 1-2/day; notes intermittent loose stools with dairy consumption and constipation occurring weekly with lack of BM for up to two days with abdominal cramping and then hard stools. Continues with budesonide 3mg QD. OV 5 pt reports that she is currently struggling with constipation. She reports having a hard, formed bm every other day; denies blood in her stool. Pt reports stopping Budesonide about 2 months ago and feels her constipation and abdominal cramps have gotten worse. Pt reports that her blood sugar is always high lately and would like some direction / education on that. OV 8 patient has been having 3 weeks of LLQ shooting pain and dull right sided pain. She also complains of alternating constipation and diarrhea. She has been nauseous and vomiting multiple times per day. She has not been able to keep food down. She has been taking dicyclomine, tylenol and advil for pain. She has an appointment with endocrinology at the end of September. She also mentions having very dark urine, burning and frequency. Colonoscopy 10.24.23 Diverticulosis in the recto-sigmoid colon and in the sigmoid colon. Localized mild inflammation was found in the sigmoid colon secondary to colitis. Biopsied. OV 07.08.24 pt reports continued symptoms, states that for the past few weeks she has been having diarrhea and fecal incontinence at night; pt reports it does not matter what she eats. Pt also reports that she is worried her iron could be low. abd MRI 08.07.24 1. There is fatty liver infiltration. There are no focal abn ormality seen within the liver. 2. Other findings as noted. [facility] ED 09.05.24 pt presents with syncope [facility] ED 8 pt present with N/V/D OV 8 Pt reports that her symptoms from ER visit continue. Started having diarrhea on Sunday, states stool has been straight acid for the past three days. Reports she has been unable to keep anything down. Colonoscopy is scheduled for 10.27.24 [facility] Medical History Dietary restriction Shortness of breath on exertion History of pain when walking Alcohol use Picking own skin Low iron Fatty liver Gastroparesis Cardiology follow-up encounter Obesity Depression Diabetes GERD (gastroesophageal reflux disease) Irregular heart beat Cellulitis History of echocardiogram Wears glasses Bipolar disorder Anxiety Arthritis Back pain Migraine headache Syncope Non-smoker Bipolar 1 disorder PCOS (polycystic ovarian syndrome) IBS (irritable bowel syndrome) Autism Home Medications ?Medication ?Instructions ?Recorded ?Last Taken ?Type lithium carbonate 300 mg capsule 300 mg PO DAILY Bipol ar 04/05/17 09/27/24 History ferrous sulfate 325 mg (65 mg 325 mg PO QODAY suppleme nt 01/24/22 10/24/24 History iron) tablet (FeroSul) lithium carbonate 600 mg capsule 600 mg PO QHS mental health 01/24/22 09/26/24 History aripiprazole lauroxil 441 mg/1.6 441 mg IM .Q28 DAYS [facility] 12/18/22 09/24/24 History mL suspension, ext.rel. IM syringe ([place]) cholecalciferol (vitamin D3) 25 25 mcg PO DAILY vitami n 12/18/22 09/26/24 History mcg (1,000 unit) tablet (Vitamin D3) imipramine HCl 25 mg tablet 25 mg PO DAILY mental heal th 12/18/22 09/26/24 Hi story pantoprazole 40 mg tablet,delayed 40 mg PO QHS 4 09/26/24 History release simvastatin 20 mg tablet 20 mg PO QHS 06/03/23 History lactulose 10 gram/15 mL oral 30 g (45 mL) PO BID PRN 0 09/28/23 10/21/23 Rx solution constipation #473 mL hyoscyamine sulfate 0.125 mg tablet 0.125 mg PO BID-QI D PRN dyspepsia 10/10/23 10/21/23 Rx #30 tabs diphenoxylate-atropine 2.5 1 tab PO BID PRN diarrhea # 30 tabs 10/29/23 Unknown Rx mg-0.025 mg tablet (Lomotil) dicyclomine 20 mg tablet 20 mg PO TID PRN abdominal p ain 05/08/24 09/23/24 Rx #30 tabs metoclopramide HCl 10 mg tablet 10 mg PO Q6H PRN nause a and 05/08/24 09/26/24 Rx (Reglan) vomiting #20 tabs miscellaneous medical supply #1 ea 05/29/24 Unknown Rx metoprolol tartrate 50 mg tablet 100 mg (2 x 50 mg) PO BID #180 tabs 07/21/24 09/27/24 10:00 Rx amlodipine 2.5 mg tablet 2.5 mg PO BID 09/04/2409/27 10:00 History atogepant 60 mg tablet (Qulipta) 60 mg PO DAILY 09/27/24 History cyanocobalamin (vitamin B-12) 1,000 mcg sublingual YI LY 09/04/24 09/26/24 History 1,000 mcg sublingual tablet norgestimate 0.25 mg-ethinyl 1 tab PO DAILY 09/04/24 U nknown History estradiol 0.035 mg tablet ([place]) rizatriptan 10 mg tablet 10 mg PO Q2H PRN migraine he adache 09/04/24 Unknown History diphenoxylate-atropine 2.5 1 tab PO TID #90 tabs 09/2509/27/24 10:00 Rx mg-0.025 mg tablet polyethylene glycol 3350 17 4 g PO ONCE constipation # 238 grams 10/14/24 Unknown Rx gram/dose oral powder (Miralax) Allergy/AdvReac Type Severity Reaction Status Date / Time ondansetron (From Zofran (as Allergy Anaphylaxis Verified 10/27/24 09:49 hydrochloride)) pollen extracts Allergy Hives Verified 10/24/24 10:45 metformin AdvReac Mild Nausea/Vom/ Verified 10/27/24 09:49 Diarrhea escitalopram (From Lexapro) AdvReac Other Verified 10/24/24 10:45 lactase (From Dairy Aid) AdvReac Upset Verified 10/24/24 10:45 Stomach Family History Mother Uterine cancer Other Asthma Depression Diabetes GERD (gastroesophageal reflux disease) Heart disease Hyperlipidemia Hypertension Surgical History History of colonoscopy History of esophagogastroduodenoscopy (EGD) History of tonsillectomy and adenoidectomy H/O knee surgery H/O spinal fusion Social History household members: none housing: apartment current occupational status: unemployed history of recent travel: No Smoking Status: Never smoker alcohol intake: current alcohol intake frequency: holidays/special occasions only substance use type: does not use caffeine: Yes Type: carbonated beverages what type of physical activity do you participate in: walking frequency: daily seatbelt use: always do you feel safe at home: Yes additional social history: single ROS Constitutional Constitutional: Denies fatigue, fever(s), poor appetite, weight gain or weight loss Gastrointestinal Gastrointestinal: Denies belching, bloating, change in bowel habits, change in stool character, chewing difficulty, coffee ground emesis, constipation, cramping, diarrhea, dyspepsia, dysphagia, early satiety, excessive flatus, fecal incontinence, heartburn, hematemesis, hematochezia, hemorrhoids, loose stools, melena, nausea, odynophagia, rectal bleeding, tenesmus, vomiting or weight changes Physical Exam Const alert, oriented x3, no apparent distress and healthy appearing General Appearance: cooperative GI normal to inspection, nondistended, normoactive bowel sounds, soft to palpation, non-tender and non-distended Percussion: normal to percussion Rectal Exam: deferred Assessment & Plan Assessment/Plan (1) LUQ abdominal pain: (2) Abnormal CT of the abdomen: (3) Nausea vomiting and diarrhea: PLAN: Assessment and Plan Assessment and Plan (1) Acute diarrhea: Status: Acute Plan: I think that the diarrhea is mostly acute or chronic associated with a very poor diet since sugar. I called her silverer and she is okay with abnormal GLP-1 agonist. Also there is show post Lomotil therapy. (2) Palpitations: Status: Acute Plan: She is getting palpitations or syncope she has been checked for adrenal insufficiency. We will draw labs today including a random cortisol and 6 AM cortisol with ACTH. Will also check for urine catecholamines along with checking serum catecholamines with Chromogranin A. (3) Gastroparesis: Status: Chronic Plan: Frequently study shows that she has severe gastroparesis. She has taken Reglan therapy without any side effects such as tardive dyskinesia but she stopped taking it because she thought it was only a as needed medicine. Her gastric getting study displayed a time over 500 minutes. I told her mother that I suspect it is from her psychiatric medicines that she takes on a daily basis for bipolar disorder. I will give her a scheduled prescription to take 5 mg p.o. 3 times daily for approximately 1 month. I explained to her that most of the side effects such as tardive dyskinesia do occur in people that have pre-existing psychiatric condition to her on pre-existing psychiatric medicines. However in order to keep her out of the hospital I think we should try and treat her gastroparesis. We also talked about a gastroparesis diet and other things that she can do on a daily basis including good blood sugar control to promote gastric emptying. She says that she is having intermittent diarrhea stools are not want to give her Linzess or Amitiza for her nausea vomiting and gastroparesis because it can make her diarrhea worse. (4) Crohn's disease: Status: Chronic Qualifiers: Gastrointestinal tract location: small intestine Digestive disease complication type: without complication Qualified Code(s): K50.00 - Crohn's disease of small intestine without complications Plan: Her MRI enterography did show inflammation in the small bowel possibly consistent with inflammatory bowel disease. We put her on budesonide therapy at 3 mg a day and she is actually having normal bowel movements without fecal incontinence, urgency. We talked about eating a better diet and particularly a higher fiber diet and less in simple sugars and carbohydrates. She does have an appointment with silverer. She said she will address it with silverer but does not want to see a dietitian at this time. (5) Fatty liver: Status: Chronic Plan: INDINGS: Liver: Diffusely echogenic suggesting fatty infiltration. Hepatomegaly. The liver measures 21.5 cm. Gallbladder: No stones sludge wall thickening or tenderness. Gallbladder wall m easures 2 mm. Common bile duct: Normal measuring 4 mm. . Pancreas: Normal Other: Visualized portions of the right kidney are unremarkable. No right upper quadrant ascites. US/Abdomen Limited IMPRESSION: Fatty infiltration of the liver. Hepatomegaly. LOWER THORAX: Unremarkable. Lung bases are clear. No cardiomegaly. No significant pericardial effusion. ABDOMEN: LIVER: Stable hepatosplenomegaly. GALLBLADDER AND BILE DUCTS: Unremarkable. No calcified gallstones. No gallbladder distention or wall edema. No intra- or extrahepatic biliary ductal dilation. PANCREAS: Unremarkable. No focal cystic or solid mass. SPLEEN: See above. ADRENALS: Unremarkable. No nodules. KIDNEYS AND URETERS: See below. STOMACH AND BOWEL: Moderate gas and mild fluid distending the stomach. Mild scattered fluid and gas in the small bowel, minimal mucosal enhancement in terminal ileal loops. Moderate gas and stool in some of the proximal half of the colon, mild gas and stool in the distal colon. Focal collapsed and questionably wall thickening short segment of hepatic flexure of colon, cannot exclude neoplasm, best seen on coronal images 58 through 64. Mildly thick-walled almost collapsed appearance of some of the descending colon. PELVIS: APPENDIX: Normal appendix is best seen on coronal images.. BLADDER: Minimally distended urinary bladder, minimal wall thickening likely due to nondistention. REPRODUCTIVE: Unremarkable as visualized. No mass. ABDOMEN and PELVIS: INTRAPERITONEAL SPACE: See below. BONES/JOINTS: Mildly larger appearance of a hypodense-cystic lesion of 2 cm x 1.6 cm x 2.4 cm adjacent to posterior 11th rib, liver and right kidney. This appears separate from liver and kidney and likely arising from peritoneal margin. Stable appearance of extensive thoracolumbar stabilization rods and straightening of the usual curvature. No suspicious lytic or blastic abnormality. SOFT TISSUES: Unremarkable. No discrete abdominal or pelvic wall hernia. VASCULATURE: Unremarkable. Abdominal aorta is non-dilated. LYMPH NODES: Mild mesenteric adenopathy is similar to prior exam. I will get MRI of the abdomen pelvis and she will need repeat colonoscopy as her last colonoscopy had a very poor prep.
[2024-10-27 10:11] LABS: Internal QC Validated? YES +Cl - CLEAR BKGD; Pregnancy, Urine Negative Negative; Record Kit Lot#,Urine Preg 0000947241
[2024-10-27] MEDS: Lactated Ringers 1,000 ML 15 ML IV (10:42)
--- NOTE | 2024-10-27 10:43 | PRE.ANES_ITS ---
ASA Classification* ASA Classification ASA Classification: 3 Assessment & Plan Anesthesia* Anesthesia Assessment Anesthesia Assessment: Discussed sedation and/or anesthesia options, risks, benefits, and alternatives with patient/parents/legal guardian/POA. Questions invited. The patient/parents/legal guardian/POA seems to understand and agrees to proceed with anesthesia plan. Reviewed the physical assessment, medical history, allergy history and patient home medications list prior to surgery/procedure/anesthetic and documented any changes. Performed airway and anesthesia risk assessments. Anesthesia Type Anesthesia Type: MAC History Source History Obtained from:: Patient and Chart Anesthesia Focused Assessment* Temperature: 98 F Pulse Rate: 88 Blood Pressure: 147/98 Respiratory Rate: 16 Pulse Ox: 100 Oxygen Delivery Method: Room Air Airway Assessment Mouth opens: >3 cm Mallampati Score: II Teeth Condition: Chipped/Broken Neck Range of motion (ROM): Full ROM Labs Anesthesia Preop lab: CBC WBC 8.2 K/mm3 (4.4-11.0) 10/24/24 15:16 10/24/24 RBC 4.58 M/mm3 (4.2-5.4) 10/24/24 15:16 10/24/24 Hgb 12.6 g/dL (12.0-15.0) 10/24/24 15:16 10/24/24 Hct 38.0 % (37-47) 10/24/24 15:16 10/24/24 Plt Count 367 K/mm3 (150-450) 10/24/24 15:16 10/24/24 CHEMISTRY Potassium 3.6 mmol/L (3.3-5.1) 10/24/24 15:16 10/24/24 Sodium 141 mmol/L (133-145) 10/24/24 15:16 10/24/24 Magnesium 2.1 mg/dL (1.5-2.2) 09/04/24 21:26 09/04/24 Phosphorus 3.3 mg/dL (2.5-4.9) 11/30/21 07:50 11/30/21 BUN 10 mg/dL (4-19) 10/24/24 15:16 10/24/24 Creatinine 0.68 mg/dL (0.70-1.20) L 10/24/24 15:16 Glucose 83 mg/dL (70-99) 10/24/24 15:16 10/24/24 POC Glucose 90 mg/dL (74-106) 10/24/23 11:13 10/24/23 TSH 2.310 uIU/mL (0.300-4.200) 05/23/24 08:30 04/0 06/13 COAG PT 13.7 SECONDS (11.7-14.9) 02/15/22 11:18 Urine Test Negative Negative 10/27/24 09:56 10/27/24 Pre-Assessment Diagnosis/Proposed Procedure Planned Operative Procedure(s): CSCOPE Anesthesia History 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 When Was Last Pacemaker Check QUESTION #4 FULL TEXT: You/Your Family Experience fever (hyperthermia) with Anesthesia Last Oral Intake Last Oral intake: Last Oral Intake NPO since 06:40 10/27/24 10:07 Meds taken in AM with sips of No 10/27/24 10:07 water? Meds patient instructed to take am of surgery PONV PONV - research technician: PONV - research technician Female Yes 10/24/24 10:50 HX of Motion Sickness Yes 10/24/24 10:50 HX of N/V After Surgery Yes 10/24/24 10:50 Non-Smoker Yes 10/24/24 10:50 Duration of Surgery greater No 10/24/24 10:50 than 60 minutes Number of Risk Factors 4 10/24/24 10:50 PONV Score Severe Risk 10/24/24 10:50 Height & Weight Height & Weight: Anesthesia: Height & Weight Height 5 ft 6 in 10/27/24 10:07 Weight: 130 kg 10/27/24 10:07 Body Mass Index (BMI) 46.2 10/27/24 10:07 Respiratory Assessment Respiratory Assessment - research technician: Respiratory Tract Infection Hx - research technician Hx Respiratory Tract Infection No 10/24/24 10:50 STOP Sleep Apnea STOP Sleep Apnea - research technician: STOP Sleep Apnea - research technician Hx Hypertension Yes: CONTROLLED WITH MED 10/24/24 10:50 Hx Sleep Apnea No 10/24/24 10:50 CPAP BIPAP Do you snore loudly (louder No 10/24/24 10:50 than talking or can be heard Do you often feel tired/ No 10/24/24 10:50 fatigued/ sleepy during daytime? Has anyone observed you stop No 10/24/24 10:50 breathing during sleep? STOP Results Negative 10/24/24 10:50 QUESTION #5 FULL TEXT : Do you snore loudly (louder than talking or can be heard through closed doors)? 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 Specify any problems Hx of Preganancy in last 3 No 10/24/24 10:50 Months Nurse Filling Out Transfusion DSCHRIBER 10/24/24 10:50 & Questions: Date: 10/24/24 10/24/24 10:50 Time: 10:52 10/24/24 10:50 Patient unable to answer at this time (ie. confused, unrespo /Reproduction History /Reproductive History - research technician: /Reproductive Hx- research technician Hx Now No 10/24/24 10:50 Gestational Age (in weeks): EDC: Hx Hx Para Hx Section SAB No 10/24/24 10:50 Active Medications Active Medications: Current Medications Generic Name Dose Route Start Last Admin Trade Name Freq PRN Reason Stop Dose Admin Lactated Ringer's 1,000 mls @ 15 mls/hr 10/27/24 10:00 IV .Q48H [facility] PFSH Medical History Dietary restriction Shortness of breath on exertion History of pain when walking Alcohol use Picking own skin Low iron Fatty liver Gastroparesis Cardiology follow-up encounter Obesity Depression Diabetes GERD (gastroesophageal reflux disease) Irregular heart beat Cellulitis History of echocardiogram Wears glasses Bipolar disorder Anxiety Arthritis Back pain Migraine headache Syncope Non-smoker Bipolar 1 disorder PCOS (polycystic ovarian syndrome) IBS (irritable bowel syndrome) Autism Home Medications ?Medication ?Instructions ?Recorded ?Last Taken ?Type lithium carbonate 300 mg capsule 300 mg PO DAILY Bipol ar 04/05/17 09/27/24 History ferrous sulfate 325 mg (65 mg 325 mg PO QODAY suppleme nt 01/24/22 10/24/24 History iron) tablet (FeroSul) lithium carbonate 600 mg capsule 600 mg PO QHS mental health 01/24/22 09/26/24 History aripiprazole lauroxil 441 mg/1.6 441 mg IM .Q28 [facility] 12/18/22 09/24/24 History mL suspension, ext.rel. IM syringe ([place]) cholecalciferol (vitamin D3) 25 25 mcg PO DAILY vitami n 12/18/22 09/26/24 History mcg (1,000 unit) tablet (Vitamin D3) imipramine HCl 25 mg tablet 25 mg PO DAILY mental heal 12/18/22 09/26/24 History pantoprazole 40 mg tablet,delayed 40 mg PO QHS 4 09/26/24 History release simvastatin 20 mg tablet 20 mg PO QHS 06/03/23 History lactulose 10 gram/15 mL oral 30 g (45 mL) PO BID PRN 0 09/28/23 10/21/23 Rx solution constipation #473 mL hyoscyamine sulfate 0.125 mg tablet 0.125 mg PO BID-QI D PRN dyspepsia 10/10/23 10/21/23 Rx #30 tabs diphenoxylate-atropine 2.5 1 tab PO BID PRN diarrhea # 30 tabs 10/29/23 Unknown Rx mg-0.025 mg tablet (Lomotil) dicyclomine 20 mg tablet 20 mg PO TID PRN abdominal p ain 05/08/24 09/23/24 Rx #30 tabs metoclopramide HCl 10 mg tablet 10 mg PO Q6H PRN nause a and 05/08/24 09/26/24 Rx (Reglan) vomiting #20 tabs miscellaneous medical supply #1 ea 05/29/24 Unknown Rx metoprolol tartrate 50 mg tablet 100 mg (2 x 50 mg) PO BID #180 tabs 07/21/24 09/27/24 10:00 Rx amlodipine 2.5 mg tablet 2.5 mg PO BID 09/04/2409/27 10:00 History atogepant 60 mg tablet (Qulipta) 60 mg PO DAILY 09/27/24 History cyanocobalamin (vitamin B-12) 1,000 mcg sublingual YI LY 09/04/24 09/26/24 History 1,000 mcg sublingual tablet norgestimate 0.25 mg-ethinyl 1 tab PO DAILY 09/04/24 U nknown History estradiol 0.035 mg tablet ([place]) rizatriptan 10 mg tablet 10 mg PO Q2H PRN migraine he adache 09/04/24 Unknown History diphenoxylate-atropine 2.5 1 tab PO TID #90 tabs 09/2509/27/24 10:00 Rx mg-0.025 mg tablet polyethylene glycol 3350 17 4 g PO ONCE constipation # 238 grams 10/14/24 Unknown Rx gram/dose oral powder (Miralax) Allergy/AdvReac Type Severity Reaction Status Date / Time ondansetron (From Zofran (as Allergy Anaphylaxis Verified 10/27/24 10:06 hydrochloride)) pollen extracts Allergy Hives Verified 10/27/24 10:06 metformin AdvReac Mild Nausea/Vom/ Verified 10/27/24 10:06 Diarrhea escitalopram (From Lexapro) AdvReac Other Verified 10/27/24 10:06 lactase (From Dairy Aid) AdvReac Upset Verified 10/27/24 10:06 Stomach Family History Mother Uterine cancer Other Asthma Depression Diabetes GERD (gastroesophageal reflux disease) Heart disease Hyperlipidemia Hypertension Surgical History History of colonoscopy History of esophagogastroduodenoscopy (EGD) History of tonsillectomy and adenoidectomy H/O knee surgery H/O spinal fusion Social History household members: none housing: apartment current occupational status: unemployed history of recent travel: No Smoking Status: Never smoker alcohol intake: current alcohol intake frequency: holidays/special occasions only substance use type: does not use caffeine: Yes Type: carbonated beverages what type of physical activity do you participate in: walking frequency: daily seatbelt use: always do you feel safe at home: Yes additional social history: single Review of Systems (Anesthesia) ROS Narrative System reviewed and no additional complaints, except as documented.
--- NOTE | 2024-10-27 10:45 | COLBX_PTH ---
PATIENT: DIAZ DOUGLAS LOC: EN U#:[id number] AGE/SX: 29/F ROOM: RE10/27/[address]: Dr. Andreas Oliva DO : 1995 BED: DIS: 10/27/2024 SPEC #: [id number] RECD: 10/27/24 13:34 STATUS: DARRYL RECornelio #: [id number] CLEMENTINA: 10/27/24 10:[address]: Andreas Oliva DEPT: SURGICAL PATHOLOGY RECD BY: Fernando Beal ENTERED: 10/27/24 15:21 SP TYPE: COLON BX RONALD DR: Karuna Lim, [facility], P[employer]OLDER-C Tissues: A - COLON BIOPSY Procedures: Surgery Specimen Level IV HEADER OPERATION: Colonoscopy, biopsy PRE-OP DIAGNOSIS: Acute diarrhea, palpitations, gastroparesis TISSUE SUBMITTED: A- Random colonic biopsy MICROSCOPIC DIAGNOSIS A. Colon, random, biopsy: - No specific pathologic change. MICROSCOPIC DESCRIPTION Slides are reviewed. GROSS DESCRIPTION A. Received in fixative is one container labeled with the patient's name and designated Random colonic biopsy. The specimen consists of multiple irregular fragments of light [place] soft tissue that in aggregate measure 2.3 x 0.5 x 0.2 cm in aggregate cm. The specimen is totally submitted in one cassette. ME 10/27/2024 CPT:13515
--- NOTE | 2024-10-27 11:14 | PCM.POST.ANE ---
Anesthesia: Postop Eval I Current Vital Signs Temperature: 99 F Pulse Rate: 74 Blood Pressure: 133/87 Respiratory Rate: 20 Pulse Ox: 100 Oxygen Delivery Method: Room Air Assessment Airway patent: Yes Spontaneous unlabored respirations: Yes Mental status: Asleep nausea: No Vomiting: No Anesthesia Complication: No Fluid Hydration Crystalloid volume administer (ml): 500 Total IV fluid infused: 500 Progress Note Anesthesia document: Postop Eval 1 completed: Yes
--- NOTE | 2024-10-27 11:16 | OP.COLON_ITS ---
Patient Name: Marion Gutierrez Procedure Date: 10/27/2024 10:34 AM Date of : 1995 Age: 29 Procedure: Colonoscopy Indications: Generalized abdominal pain, Chronic diarrhea Providers: Andreas Oliva DO Medicines: Monitored Anesthesia Care Patient Profile: This is a 29 year old female. Refer to note in patient chart for documentation of history and physical. Last Colonoscopy: within the past year. Complications: No immediate complications. Procedure: Pre-Anesthesia Assessment: - Prior to the procedure, a History and Physical was performed, and patient medications and allergies were reviewed. The patient is competent. The risks and benefits of the procedure and the sedation options and risks were discussed with the patient. All questions were answered and informed consent was obtained. Patient identification and proposed procedure were verified by the physician in the pre-procedure area. Mental Status Examination: alert and oriented. Airway Examination: normal oropharyngeal airway and neck mobility. Respiratory Examination: clear to auscultation. CV Examination: normal. Prophylactic Antibiotics: The patient does not require prophylactic antibiotics. Prior Anticoagulants: The patient has taken no anticoagulant or antiplatelet agents except for NSAID medication. ASA Grade Assessment: II - A patient with mild systemic disease. After reviewing the risks and benefits, the patient was deemed in satisfactory condition to undergo the procedure. The anesthesia plan was to use monitored anesthesia care (MAC). Immediately prior to administration of medications, the patient was re-assessed for adequacy to receive sedatives. The heart rate, respiratory rate, oxygen saturations, blood pressure, adequacy of pulmonary ventilation, and response to care were monitored throughout the procedure. The physical status of the patient was re-assessed after the procedure. After I obtained informed consent, the scope was passed under direct vision. Throughout the procedure, the patient's blood pressure, pulse, and oxygen saturations were monitored continuously. The Colonoscope was introduced through the anus and advanced to the cecum, identified by appendiceal orifice and ileocecal valve. The colonoscopy was performed without difficulty. The patient tolerated the procedure well. The quality of the bowel preparation was adequate. The ileocecal valve, appendiceal orifice, and rectum were photographed. Scope In: 10:51:39 AM Scope Withdrawal Time 0 hours 11 minutes 30 seconds Scope Out: 11:05:42 AM Total Procedure Duration Time 0 hours 14 minutes 3 seconds Findings: The perianal and digital rectal examinations were normal. An area of mildly congested mucosa was found in the entire colon. Biopsies were taken with a cold forceps for histology. Verification of patient identification for the specimen was done. Estimated blood loss was minimal. A few small-mouthed diverticula were found in the recto-sigmoid colon and sigmoid colon. The exam was otherwise without abnormality on direct and retroflexion views. Impression: - Congested mucosa in the entire examined colon. Biopsied. - Diverticulosis in the recto-sigmoid colon and in the sigmoid colon. - The examination was otherwise normal on direct and retroflexion views. Recommendation: - Discharge patient to home. - Resume previous diet. - Continue present medications. - Await pathology results. - Repeat colonoscopy in 5 years for surveillance based on pathology results. Procedure Code(s): --- Professional --- 86397, Colonoscopy, flexible; with biopsy, single or multiple CPT copyright 2021 [employer]. All rights reserved. The codes documented in this report are preliminary and upon orthopedic coder review may be revised to meet current compliance requirements. Andreas Oliva DO 10/27/2024 11:15:36 AM This report has been signed electronically. Number of Addenda: 0 Note Initiated On: 10/27/2024 10:34 AM
--- NOTE | 2024-10-27 11:16 | OP.PROVAT_ITS ---
10/27/2024 Karuna Lim Np, Gut DropperIsrealc Re : Colonoscopy procedure for Marion Lim This procedure was performed on Sunday, October 27, 2024. My impressions and recommendations are as follows: Impressions : - Congested mucosa in the entire examined colon. Biopsied. - Diverticulosis in the recto-sigmoid colon and in the sigmoid colon. - The examination was otherwise normal on direct and retroflexion views. Recommendations : - Discharge patient to home. - Resume previous diet. - Continue present medications. - Await pathology results. - Repeat colonoscopy in 5 years for surveillance based on pathology results. My findings are described in the full procedure note, which is enclosed. If I can be of further assistance, please feel free to contact me at . Sincerely, Andreas Oliva, 10/27/2024 11:15:36 AM This report has been signed electronically.
--- NOTE | 2024-10-27 12:50 | PCM.POSTANE2 ---
Anesthesia Postop Eval I Sum Postop Eval Completion status Anesthesia document: Postop Eval 1 completed: Yes Anesthesia Postop Eval I Summary Anesthesia Postop Eval I Summary: Anesthesia Postop Eval I: Assessment Summary Airway patent Yes 10/27/24 11:15 [email or web address] Spontaneous unlabored Yes 10/27/24 11:15 [email or web address] respirations Mental status Asleep 10/27/24 11:15 [email or web address] nausea No 10/27/24 11:15 [email or web address] Vomiting No 10/27/24 11:15 [email or web address] Anesthesia Postop Eval I: Fluid Summary Crystalloid volume administer 500 10/27/24 11:15 [email or web address] (ml) Colloids volume administered ( ml) Blood Product volume administered (ml) Total IV fluid infused 500 10/27/24 11:15 [email or web address] Anesthesia Postop Eval I: Summary Notes Anesthesia Complication No 10/27/24 11:15 [email or web address] Anesthesia Complication Comment: Post-operative progress note Anesthesia: Postop Eval II Evaluation Mental status: Awake and Calm Pain Level: 1 nausea: No Vomiting: No Complications Anesthesia Complication: No
== END 2024-10-27 12:07 | disposition home or self-care (01) ==
LOC: EN 09:38 → AC 09:39
PROVIDERS: Anesthesiology; Visit Provider Internal Medicine Gastroenterology
PROC: 0DJD8ZZ Inspection of Lower Intestinal Tract, Via Natural or Artificial Opening Endoscopic (ICD-10-PCS; CPT 45378; principal; 2024-10-27 10:40)
DX: K57.30 Diverticulosis of large intestine without perforation or abscess without bleeding (principal); F31.9 Bipolar disorder, unspecified; E11.43 Type 2 diabetes mellitus with diabetic autonomic (poly)neuropathy; K31.84 Gastroparesis; K58.0 Irritable bowel syndrome with diarrhea; R10.84 Generalized abdominal pain; K21.9 Gastro-esophageal reflux disease without esophagitis; Z79.899 Other long term (current) drug therapy
CPT/HCPCS: 45380; 81025; 82962; 88305

== ENCOUNTER → 2024-10-28 | Outpatient (CLI) | payer MEDICAID, SELFPAY ==
[2024-10-24 16:01] LABS: Hematocrit 38.0 % (37-47); Hemoglobin 12.6 g/dL (12.0-15.0); Immature Granulocytes Count 0.020 X10^3/uL (0.0-0.0); Mean Corp Hgb Conc 33.2 g/dL (32-36); Mean Corpuscular Volume 83.0 fL (81-99); Mean Platelet Vol. 9.4 fl (6.2-12.0); NRBC Flagged by Analyzer 0 % (0-5); Platelet Count 367 K/mm3 (150-450); RBC Distribution Width CV 14.5 % (11.6-14.6); RBC Distribution Width SD 43.9 fl (35.1-43.9); Red Blood Count 4.58 M/mm3 (4.2-5.4); White Blood Count 8.2 K/mm3 (4.4-11.0)
[2024-10-24 16:30] LABS: Anion Gap 13 (5-15); BUN 10 mg/dL (4-19); BUN/Creat Ratio 15.3 RATIO (10-20); Calcium,Total 9.6 mg/dL (7.6-11.0); Carbon Dioxide 21.5 mmol/L (21.0-32.0); Chloride 106 mmol/L (98-108); Glucose 83 mg/dL (70-99); Potassium 3.6 mmol/L (3.3-5.1)
[2024-10-24 16:52] LABS: Internal QC Validated? YES +Cl - CLEAR BKGD; Pregnancy, Serum, hCG Quali. NEGATIVE Negative; Record Kit Lot#, Serum Preg. 947241
[2024-10-28 10:32] LABS: Internal QC Validated? YES +Cl - CLEAR BKGD; Pregnancy, Urine Negative Negative; Record Kit Lot#,Urine Preg 0000964736
--- NOTE | 2024-11-06 17:20 | TILTTABLE_ITS ---
Staff Staff: April Santa and Maritza Martino Summary Pre Test Resting HR: 106 Pre Test Resting BP: 150/92 Minimum Test HR: 106 Maximum Test HR: 144 Minimum Test BP: 150/92 Maximum Test BP: 168/123 Reason for Test Termination: Reached Maximum Test Time Physician Tilt Table Report Patient's Physicians Primary Care Physician: Karuna Lim [facility] Indications/Diagnosis: Syncope Procedure Comments: Patient was brought to the noninvasive lab in the postabsorptive nonsedated state. Initial heart rate was noted to be 94 bpm with a blood pressure 152/90 mmHg. Patient was then put in the 70 degree head upright tilt position for total duration of 20 minutes. Patient maintained heart rate persistently over 100 bpm and blood pressure is which were in the hypertensive range. Patient complained of feeling nauseated and feeling like she was going to pass out though her blood pressures remained above 160 mmHg systolic. At the end of the 20 minutes patient was put back in the recumbent position and given 0.4 mg of sublingual nitroglycerin. Patient was then put back in the 70 degree head upright tilt position initial heart rate was 133 bpm with a blood pressure 157/97 with a peak blood pressure of 169/103 and a heart rate of 133 bpm. Patient did complain of multiple symptomatology but no hemodynamic changes were noted. Summary: Negative head upright tilt table test. Patient is noted to have resting hypertension.
[2024-11-06 17:24] VITALS: BP 150/92; BP 168/123
== END | disposition home or self-care (01) ==
LOC: CVS 10:11
PROVIDERS: Referring Provider Physician Assistant Medical; Visit Provider Physician Assistant Medical
DX: R55 Syncope and collapse (principal)
CPT/HCPCS: 36415; 80048; 81025; 84703; 85025; 93660; A4216

== ENCOUNTER → 2024-11-14 | Outpatient (CLI) | payer MEDICAID, SELFPAY ==
[2024-11-14 16:23] LABS: Anion Gap 11 (5-15); BUN 12 mg/dL (4-19); BUN/Creat Ratio 15.5 RATIO (10-20); Calcium,Total 9.2 mg/dL (7.6-11.0); Carbon Dioxide 21.7 mmol/L (21.0-32.0); Chloride 106 mmol/L (98-108); Glucose 89 mg/dL (70-99); Potassium 4.4 mmol/L (3.3-5.1)
== END | disposition home or self-care (01) ==
LOC: LAB 14:55
PROVIDERS: Referring Provider Nurse Practitioner Gerontology; Visit Provider Nurse Practitioner Gerontology
DX: I10 Essential (primary) hypertension (principal)
CPT/HCPCS: 36415; 80048

== ENCOUNTER 2024-11-18 15:22 | Emergency (ER) | payer MEDICAID, SELFPAY ==
[2024-11-18 15:23] VITALS: BP 153/71; PULSE 68; RESP 16; TEMP 36.9; O2SAT 100; BMI 48.2
[2024-11-18 15:48] LABS: Hematocrit 35.4 % (37-47); Hemoglobin 11.7 g/dL (12.0-15.0); Immature Granulocytes Count 0.030 X10^3/uL (0.0-0.0); Mean Corp Hgb Conc 33.1 g/dL (32-36); Mean Corpuscular Volume 84.1 fL (81-99); Mean Platelet Vol. 9.2 fl (6.2-12.0); NRBC Flagged by Analyzer 0 % (0-5); Platelet Count 323 K/mm3 (150-450); RBC Distribution Width CV 14.6 % (11.6-14.6); RBC Distribution Width SD 44.9 fl (35.1-43.9); Red Blood Count 4.21 M/mm3 (4.2-5.4); White Blood Count 10.0 K/mm3 (4.4-11.0)
[2024-11-18 16:29] LABS: AST(SGOT) 19 U/L (<=31); Alanine Aminotransfer ALT/SGPT 17 U/L (<=34); Albumin, Serum 3.4 g/dL (3.5-5.0); Alkaline Phosphatase 51 U/L (35-104); Anion Gap 13 (5-15); BUN 11 mg/dL (4-19); BUN/Creat Ratio 17.3 RATIO (10-20); Calcium,Total 9.0 mg/dL (7.6-11.0); Carbon Dioxide 19.0 mmol/L (21.0-32.0); Chloride 102 mmol/L (98-108); Estimated Creatinine Clearance 185.40 ml/min (50-250); Globulin 3.1 g/dL (2.2-4.2); Glucose 255 mg/dL (70-99); Potassium 4.2 mmol/L (3.3-5.1)
[2024-11-18 16:45] LABS: Lithium 0.71 mmol/L (0.60-1.20)
[2024-11-18 17:22] VITALS: PULSE 65; O2SAT 97
--- NOTE | 2024-11-18 17:58 | EDS_ITS ---
HPI History of Present Illness Chief Complaint: Hypoglycemia Detail of Chief Complaint: Blood sugar when she had total body paresthesia 83, 65 per EMS Informant: patient, parent and EMS Onset/Context/Timing Onset: Today Context: Sudden Onset Timing: Intermittent and Lasts (Patient is not able to tell me how long she had total body paresthesia.) Quality: Total body paresthesia including perioral Location: Generalized Current Severity: Gone Maximum Severity: Severe Worsened by: Patient believes due to hypoglycemia. Blood sugar at the time was 83 Relieved by: Uncertain Associated Symptoms Associated Symptoms: None Narrative Narrative: Patient is a 29-year-old female. She has history of gastroparesis, Crohn's disease, insulin resistance however she is on no insulin presently. She is seen by Dr. Oliva. Dr. Oliva is working her up for possible dumping syndrome . Patient's A1c is normal. Patient is seeing Dr. Oliva because of chronic diarrhea. She had a recent colonoscopy. These findings revealed a normal rectal exam and perianal area. There was an area of mildly congested mucosa. Biopsies were taken. Small mouth diverticula were found in the rectosigmoid colon. The examination was otherwise normal. She was discharged to home. The colonoscopy was performed on October 27, 2024. Patient had a recent blood work that was unremarkable i.e. B basic metabolic panel. His office note from September 25, 2024 is reviewed. Patient had significant workup. She had a recent MRI that revealed a fatty liver. Per Dr. Oliva's note he believes the diarrhea is due to poor diet. She also has chronic gastric paresis. Patient presents because of total body numbness perioral numbness that started prior to presentation. She has had this before. She states this only lasted 5 minutes in the past. Her blood sugar was in the 80s. 65 when EMS saw her. They started her on D10. At the time of my exam she had no complaints other than felt weak. Prior similar symptoms: Yes Recent Illness/Hospitalization: Yes [facility] Medical History Dietary restriction Shortness of breath on exertion History of pain when walking Alcohol use Picking own skin Low iron Fatty liver Gastroparesis Cardiology follow-up encounter Obesity Depression Diabetes GERD (gastroesophageal reflux disease) Irregular heart beat Cellulitis History of echocardiogram Wears glasses Bipolar disorder Anxiety Arthritis Back pain Migraine headache Syncope Non-smoker Bipolar 1 disorder PCOS (polycystic ovarian syndrome) IBS (irritable bowel syndrome) Autism Home Medications ?Medication ?Instructions ?Recorded ?Last Taken ?Type lithium carbonate 300 mg capsule 300 mg PO DAILY Bipol ar 04/05/17 09/27/24 History ferrous sulfate 325 mg (65 mg 325 mg PO QODAY suppleme nt 01/24/22 10/24/24 History iron) tablet (FeroSul) lithium carbonate 600 mg capsule 600 mg PO QHS mental health 01/24/22 09/26/24 History aripiprazole lauroxil 441 mg/1.6 441 mg IM .Q28 DAYS [facility] 12/18/22 09/24/24 History mL suspension, ext.rel. IM syringe ([place]) cholecalciferol (vitamin D3) 25 25 mcg PO DAILY vitami n 12/18/22 09/26/24 History mcg (1,000 unit) tablet (Vitamin D3) imipramine HCl 25 mg tablet 25 mg PO DAILY [facility] 12/18/22 09/26/24 History pantoprazole 40 mg tablet,delayed 40 mg PO QHS 4 09/26/24 History release simvastatin 20 mg tablet 20 mg PO QHS 06/03/23 History lactulose 10 gram/15 mL oral 30 g (45 mL) PO BID PRN 0 09/28/23 10/21/23 Rx solution constipation #473 mL hyoscyamine sulfate 0.125 mg tablet 0.125 mg PO BID-QI D PRN dyspepsia 10/10/23 10/21/23 Rx #30 tabs diphenoxylate-atropine 2.5 1 tab PO BID PRN diarrhea # 30 tabs 10/29/23 Unknown Rx mg-0.025 mg tablet (Lomotil) dicyclomine 20 mg tablet 20 mg PO TID PRN abdominal p ain 05/08/24 09/23/24 Rx #30 tabs metoclopramide HCl 10 mg tablet 10 mg PO Q6H PRN nause a and 05/08/24 09/26/24 Rx (Reglan) vomiting #20 tabs miscellaneous medical supply #1 ea 05/29/24 Unknown Rx metoprolol tartrate 50 mg tablet 100 mg (2 x 50 mg) PO BID #180 tabs 07/21/24 09/27/24 10:00 Rx amlodipine 2.5 mg tablet 2.5 mg PO BID 09/04/2409/27 10:00 History atogepant 60 mg tablet (Qulipta) 60 mg PO DAILY 09/27/24 History cyanocobalamin (vitamin B-12) 1,000 mcg sublingual YI LY 09/04/24 09/26/24 History 1,000 mcg sublingual tablet norgestimate 0.25 mg-ethinyl 1 tab PO DAILY 09/04/24 U nknown History estradiol 0.035 mg tablet (Long-Linyah) rizatriptan 10 mg tablet 10 mg PO Q2H PRN migraine he adache 09/04/24 Unknown History diphenoxylate-atropine 2.5 1 tab PO TID #90 tabs 09/2509/27/24 10:00 Rx mg-0.025 mg tablet polyethylene glycol 3350 17 4 g PO ONCE constipation # 238 grams 10/14/24 Unknown Rx gram/dose oral powder (Miralax) spironolactone 25 mg tablet 25 mg PO QDAY #30 tabs Unknown Rx Allergy/AdvReac Type Severity Reaction Status Date / Time ondansetron (From Zofran (as Allergy Anaphylaxis Verified 10/27/24 10:06 hydrochloride)) pollen extracts Allergy Hives Verified 10/27/24 10:06 metformin AdvReac Mild Nausea/Vom/ Verified 10/27/24 10:06 Diarrhea escitalopram (From Lexapro) AdvReac Other Verified 10/27/24 10:06 lactase (From Dairy Aid) AdvReac Upset Verified 10/27/24 10:06 Stomach Family History Mother Uterine cancer Other Asthma Depression Diabetes GERD (gastroesophageal reflux disease) Heart disease Hyperlipidemia Hypertension Surgical History History of colonoscopy History of esophagogastroduodenoscopy (EGD) History of tonsillectomy and adenoidectomy H/O knee surgery H/O spinal fusion Social History household members: none housing: apartment current occupational status: unemployed history of recent travel: No Smoking Status: Never smoker alcohol intake: current alcohol intake frequency: holidays/special occasions only substance use type: does not use caffeine: Yes Type: carbonated beverages what type of physical activity do you participate in: walking frequency: daily seatbelt use: always do you feel safe at home: Yes additional social history: single ROS ROS ED Constitutional Constitutional ED: Denies chills, fever(s), subjective, sweats or weight loss Eyes Eyes: Denies blurry vision or change in vision ENT ENT ED: Denies ear pain, rhinorrhea or sore throat Cardiovascular Cardiovascular: Denies chest pain, orthopnea or palpitations Respiratory/Chest Respiratory/Chest: Denies cough, dyspnea, dyspnea on exertion or orthopnea Gastrointestinal Gastrointestinal: Reports diarrhea and other Details: The diarrhea is chronic. ; Denies abdominal pain, constipation, melena, nausea or vomiting Genitourinary Genitourinary ED: Denies dysuria, hematuria or urinary frequency Musculoskeletal Musculoskeletal: Denies arthralgias, back pain, myalgias or neck pain Integumentary Denies rash Neurologic Neurologic: Reports paresthesias RUE, RLE, LUE and LLE and other Details: Also had perioral numbness. ; Denies headache(s) Psychiatric Psychiatric: Denies anxiety or depression Endocrine Endocrinology: Denies cold intolerance or heat intolerance Hematologic/Lymphatic Hematologic/Lymphatic: Reports systems reviewed and no addt'l complaints, except as documented EXAM Physical Exam Const Vital Signs: 11/18/24 15:23 11/18/24 15:29 11/18/24 17:22 Temperature 98.5 F Temperature Source Oral Pulse Rate 68 65 Respiratory Rate 16 Respiratory Pattern Normal Blood Pressure 153/71 H Blood Pressure Mean 98 Pulse Ox 100 97 Oxygen Delivery Method Room Air Room Air Positive well nourished and well developed Constitutional Narrative: BMI is 48.2. General Appearance ED: well developed and NAD; Negative for cyanotic, diaphoretic or pallor HEENT HEENT Narrative: Head is atraumatic no cephalic. Ears normal. TMs normal. Nares patent. There is no discharge. Posterior pharynx is normal. Uvula midline. No deviation of the tongue with protrusion. Eyes PERRL and EOMs intact bilaterally General Eye ED: Negative for pale conjunctiva or scleral icterus Neck no lymphadenopathy, supple and no JVD Resp normal respiratory effort and clear to auscultation bilaterally Cardio regular rate, regular rhythm, S1 normal heart sound, S2 normal heart sound and no murmurs GI normal to inspection, nondistended, normoactive bowel sounds, non-tender, non- distended and no masses; Negative for hepatosplenomegaly GI Narrative: Abdominal exam is limited due to body habitus. Back/Spine no CVA tenderness Extremity Extremity Narrative: Poor hygiene and callus formation on her feet otherwise unremarkable. Neuro oriented x3, CN's II-XII intact bilaterally and no sensory deficits noted Neuro Narrative: There is no dysmetria. There is a negative [place] sign. Sensorium / Orientation: alert Motor Exam: strength 5/5 throughout Skin no rashes or lesions noted, no wounds and skin turgor normal General Skin Exam: elasticity normal; Negative for jaundice or pallor MDM MDM MDM Narrative Medical decision making narrative: Patient denies any symptoms to suggest affective disorder and hyperventilation syndrome. Since there is concern she may have dumping syndrome will obtain electrolyte panel to assess sodium, calcium as well as renal function. CBC was obtained to assess H&H and she appears slightly pale. History & Record Review Additional record(s) reviewed:: Prior outpatient record and Prior labs Lab Data Attestation: I reviewed the patient's lab results. Lab results narrative: CBC is marked for anemia with normal indices. Comprehensive metabolic panel is remarkable glucose of 255 with a normal CO2 anion gap. Liver enzymes are normal. Labs: Laboratory Results - last 24 hr 11/18/24 11/18/24 15:27 15:40 WBC 10.0 RBC 4.21 Hgb 11.7 L Hct 35.4 L MCV 84.1 MCH 27.8 MCHC 33.1 RDW Std Deviation 44.9 H RDW Coeff of Delmy 14.6 Plt Count 323 MPV 9.2 Immature Gran % (Auto) 0.300 Neut % (Auto) 71.2 H Lymph % (Auto) 20.8 Long % (Auto) 6.2 Eos % (Auto) 1.0 Baso % (Auto) 0.5 Absolute Neuts (auto) 7.1 Absolute Lymphs (auto) 2.07 Nucleated RBC % 0 Sodium 134 Potassium 4.2 Chloride 102 Carbon Dioxide 19.0 L Anion Gap 13 BUN 11 Creatinine 0.64 L Estim Creat Clear Calc 185.40 Est GFR (MDRD) Non-Af 124 BUN/Creatinine Ratio 17.3 Glucose 255 H Calcium 9.0 Total Bilirubin 0.38 AST 19 ALT 17 Alkaline Phosphatase 51 Total Protein 6.5 Albumin 3.4 L Globulin 3.1 Albumin/Globulin Ratio 1.1 [place] 0.71 POC Glucose 88 Treatment and Re-Evaluation :: Since patient is presently asymptomatic and her workup is essentially unremarkable we will discharge to follow-up with her primary care provider. Discharge Plan Triage Chief Complaint: Hypoglycemia ED Provider: Mau Smallwood Dx/Rx/DC Orders Clinical Impression: Paresthesias, Acute hyperglycemia, Bipolar 1 disorder, Gastroparesis, Hypertension, Fatty liver Instructions: ED Paresthesia Prescriptions: No Action hyoscyamine sulfate 0.125 mg tablet 0.125 mg PO BID-QID PRN (Reason: dyspepsia) Qty: 30 0RF (DME) miscellaneous medical supply Misc See Rx Instructions .Route Qty: 1 0RF Rx Instructions: As directed diphenoxylate-atropine 2.5-0.025 mg tablet 1 tab PO TID Qty: 90 0RF lithium carbonate 300 MG capsule 300 mg PO DAILY lithium carbonate 600 mg Capsule 600 mg PO QHS ferrous sulfate [FeroSul] 325 mg (65 mg iron) tablet 325 mg PO QODAY imipramine HCl 25 mg tablet 25 mg PO DAILY cholecalciferol (vitamin D3) [Vitamin D3] 25 mcg (1,000 unit) tablet 25 mcg PO DAILY [place]ada 441 mg/1.6 mL suspension,extended rel syring 441 mg IM .Q28 DAYS Rx Instructions: 441 mg intramuscularly Q28D; due first week of september metoclopramide HCl [Reglan] 10 mg tablet 10 mg PO Q6H PRN (Reason: nausea and vomiting) Qty: 20 0RF dicyclomine 20 mg tablet 20 mg PO TID PRN (Reason: abdominal pain) Qty: 30 0RF norgestimate-ethinyl estradiol [Long-Linyah] 0.25-0.035 mg tablet 1 tab PO DAILY cyanocobalamin (vitamin B-12) 1,000 mcg tablet, sublingual 1,000 mcg sublingual DAILY Qulipta 60 mg tablet 60 mg PO DAILY rizatriptan 10 mg tablet 10 mg PO Q2H PRN (Reason: migraine headache) amlodipine 2.5 mg tablet 2.5 mg PO BID simvastatin 20 mg tablet 20 mg PO QHS pantoprazole 40 mg tablet,delayed release (DR/EC) 40 mg PO QHS lactulose 10 gram/15 mL solution 30 g PO BID PRN (Reason: constipation) Qty: 473 1RF diphenoxylate-atropine [Lomotil] 2.5-0.025 mg tablet 1 tab PO BID PRN (Reason: diarrhea) Qty: 30 2RF metoprolol tartrate 50 mg tablet 100 mg PO BID Qty: 180 3RF polyethylene glycol 3350 [Miralax] 17 gram/dose powder 4 g PO ONCE Qty: 238 0RF Rx Instructions: Mix entire bottle into 64oz of clear liquid for colonoscopy prep spironolactone 25 mg tablet 25 mg PO QDAY Qty: 30 11RF Primary Care Provider: Karuna Lim Referrals: Karuna Lim, COMMUNICATION[employer] TECHNICIAN-C [Primary Care Provider, Family Practice] - 1 Week Print Language: Hong Konger Disposition Disposition: Home, Self Care
[2024-11-18 18:13] VITALS: BP 153/71; PULSE 65; RESP 16; TEMP 36.9; O2SAT 97
== END 2024-11-18 18:13 | disposition home or self-care (01) ==
PROVIDERS: Emergency Provider Emergency Medicine; Visit Provider Emergency Medicine
DX: R20.2 Paresthesia of skin (principal); F31.9 Bipolar disorder, unspecified; E11.43 Type 2 diabetes mellitus with diabetic autonomic (poly)neuropathy; E11.65 Type 2 diabetes mellitus with hyperglycemia; I10 Essential (primary) hypertension; K76.0 Fatty (change of) liver, not elsewhere classified; K31.84 Gastroparesis; Z79.899 Other long term (current) drug therapy; K21.9 Gastro-esophageal reflux disease without esophagitis
CPT/HCPCS: 80053; 80178; 82962; 85025; 99285

== ENCOUNTER → 2024-11-20 | Outpatient (CLI) | payer MEDICAID, SELFPAY ==
[2024-11-20 10:23] LABS: Hematocrit 38.8 % (37-47); Hemoglobin 12.3 g/dL (12.0-15.0); Immature Granulocytes Count 0.020 X10^3/uL (0.0-0.0); Mean Corp Hgb Conc 31.7 g/dL (32-36); Mean Corpuscular Volume 86.6 fL (81-99); Mean Platelet Vol. 9.7 fl (6.2-12.0); NRBC Flagged by Analyzer 0 % (0-5); Platelet Count 352 K/mm3 (150-450); RBC Distribution Width CV 14.6 % (11.6-14.6); RBC Distribution Width SD 46.4 fl (35.1-43.9); Red Blood Count 4.48 M/mm3 (4.2-5.4); White Blood Count 7.5 K/mm3 (4.4-11.0)
[2024-11-20 11:16] LABS: Vitamin B12 745 pg/mL (180-914); Vitamin D,25 Hydroxy 26.8 ng/mL (30-100)
[2024-11-20 11:18] LABS: AST(SGOT) 17 U/L (<=31); Alanine Aminotransfer ALT/SGPT 19 U/L (<=34); Albumin, Serum 3.8 g/dL (3.5-5.0); Alkaline Phosphatase 56 U/L (35-104); Anion Gap 11 (5-15); BUN 12 mg/dL (4-19); BUN/Creat Ratio 19.2 RATIO (10-20); Calcium,Total 9.4 mg/dL (7.6-11.0); Carbon Dioxide 22.8 mmol/L (21.0-32.0); Chloride 104 mmol/L (98-108); Globulin 3.1 g/dL (2.2-4.2); Glucose 113 mg/dL (70-99); Potassium 4.6 mmol/L (3.3-5.1)
== END | disposition home or self-care (01) ==
LOC: LAB 09:35
DX: R20.2 Paresthesia of skin (principal)
CPT/HCPCS: 36415; 80053; 82306; 82607; 84443; 85025

== ENCOUNTER → 2024-11-28 | Outpatient (CLI) | payer MEDICAID, SELFPAY ==
[2024-11-28 14:40] LABS: Hematocrit 37.4 % (37-47); Hemoglobin 12.1 g/dL (12.0-15.0); Immature Granulocytes Count 0.020 X10^3/uL (0.0-0.0); Mean Corp Hgb Conc 32.4 g/dL (32-36); Mean Corpuscular Volume 85.2 fL (81-99); Mean Platelet Vol. 9.1 fl (6.2-12.0); NRBC Flagged by Analyzer 0 % (0-5); Platelet Count 383 K/mm3 (150-450); RBC Distribution Width CV 14.9 % (11.6-14.6); RBC Distribution Width SD 47.3 fl (35.1-43.9); Red Blood Count 4.39 M/mm3 (4.2-5.4); White Blood Count 7.9 K/mm3 (4.4-11.0)
[2024-11-28 15:16] LABS: Lithium 0.69 mmol/L (0.60-1.20)
[2024-11-28 15:21] LABS: AST(SGOT) 39 U/L (<=31); Alanine Aminotransfer ALT/SGPT 39 U/L (<=34); Albumin, Serum 3.7 g/dL (3.5-5.0); Alkaline Phosphatase 51 U/L (35-104); Anion Gap 9 (5-15); BUN 15 mg/dL (4-19); BUN/Creat Ratio 22.0 RATIO (10-20); Calcium,Total 9.0 mg/dL (7.6-11.0); Carbon Dioxide 21.6 mmol/L (21.0-32.0); Chloride 107 mmol/L (98-108); Free T3 2.8 pg/mL (2.18-3.98); Globulin 2.9 g/dL (2.2-4.2); Glucose 89 mg/dL (70-99); Magnesium 2.1 mg/dL (1.5-2.2); Potassium 4.6 mmol/L (3.3-5.1); Pro- Brain NATRIURETIC PEPTIDE 144 pg/mL (<=450)
== END | disposition home or self-care (01) ==
LOC: LAB 14:10
PROVIDERS: Referring Provider Nurse Practitioner Gerontology; Visit Provider Nurse Practitioner Gerontology
DX: R55 Syncope and collapse (principal); R00.2 Palpitations
CPT/HCPCS: 36415; 80053; 80178; 83735; 83880; 84439; 84443; 84481; 85025

== ENCOUNTER → 2024-12-09 | Outpatient (CLI) | payer MEDICAID, SELFPAY | END | disposition home or self-care (01) | LOC: LABSPEC 12:22 | PROVIDERS: Referring Provider Nurse Practitioner Women's Health; Visit Provider Nurse Practitioner Women's Health | DX: R30.0 Dysuria (principal) | CPT/HCPCS: 87086; 87088 ==

== ENCOUNTER 2025-01-01 12:32 | Outpatient (RCR) | payer MEDICAID, SELFPAY | END 2025-01-18 23:59 | LOC: NS 12:32 | CPT/HCPCS: 97802 ==

== ENCOUNTER → 2025-01-01 | Outpatient (CLI) | payer MEDICAID, SELFPAY ==
[2025-01-01 09:38] LABS: Hematocrit 44.5 % (37-47); Hemoglobin 14.2 g/dL (12.0-15.0); Immature Granulocytes Count 0.020 X10^3/uL (0.0-0.0); Mean Corp Hgb Conc 31.9 g/dL (32-36); Mean Corpuscular Volume 86.9 fL (81-99); Mean Platelet Vol. 9.4 fl (6.2-12.0); NRBC Flagged by Analyzer 0 % (0-5); Platelet Count 374 K/mm3 (150-450); RBC Distribution Width CV 13.7 % (11.6-14.6); RBC Distribution Width SD 44.3 fl (35.1-43.9); Red Blood Count 5.12 M/mm3 (4.2-5.4); White Blood Count 8.3 K/mm3 (4.4-11.0)
[2025-01-01 10:18] LABS: AST(SGOT) 16 U/L (<=31); Alanine Aminotransfer ALT/SGPT 23 U/L (<=34); Albumin, Serum 4.0 g/dL (3.5-5.0); Alkaline Phosphatase 64 U/L (35-104); Anion Gap 13 (5-15); BUN 9 mg/dL (4-19); BUN/Creat Ratio 16.6 RATIO (10-20); Calcium,Total 9.5 mg/dL (7.6-11.0); Carbon Dioxide 20.8 mmol/L (21.0-32.0); Chloride 104 mmol/L (98-108); Globulin 3.4 g/dL (2.2-4.2); Glucose 110 mg/dL (70-99); Lithium 0.65 mmol/L (0.60-1.20); Potassium 3.7 mmol/L (3.3-5.1)
[2025-01-02 08:09] LABS: PROLACTIN 10.9 ng/mL (4.8-33.4)
== END | disposition home or self-care (01) ==
DX: E11.9 Type 2 diabetes mellitus without complications (principal)
CPT/HCPCS: 36415; 80053; 80178; 83036; 84146; 85025; 97802

== ENCOUNTER → 2025-01-13 | Outpatient (CLI) | payer MEDICAID, SELFPAY | END | disposition home or self-care (01) | LOC: CT 13:52 | PROVIDERS: Referring Provider Nurse Practitioner Gerontology; Visit Provider Nurse Practitioner Gerontology | DX: R00.2 Palpitations (principal); R55 Syncope and collapse | CPT/HCPCS: 93225; 93226 ==

== ENCOUNTER → 2025-01-23 | Outpatient (CLI) | payer MEDICAID, SELFPAY ==
--- OUTSIDE RECORDS SUMMARY | 2025-01-23 06:26 | XMS RPT_ITS | CCD ---
Author Organization [facility] [place] Care Team Providers Care Bench Molder Apprentice Name Role Phone ORLANDO LEES SR Unavailable Unavailable ERNESTO CARTER Unavailable Unavailable MARY JANE, ERNESTO Unavailable Unavailable GOYO, DELMI Unavailable Unavailable GOYO, DELMI Unavailable Unavailable MARY JANE, ERNESTO Unavailable Unavailable SOMMER LECHUGA Unavailable Unavailable MARY JANE, ERNESTO Unavailable Unavailable MARY JANE, ERNESTO Unavailable Unavailable Mohan Pacheco Unavailable Unavailable Mary Jane, Ernesto Unavailable Unavailable Mary Jane, Ernesto Unavailable Unavailable VANI MANCILLA Primary Care Physician [place], Daniel Tierney Primary Care Pro vider [place], Daniel Tierney Referring Provid er [place] TOBACCO 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, HORTENSIA Le Attending Provider Ernesto Carter DO Unavailable Unavailab Crys Barraza Primary Care Provider Ernesto Carter DO Unavailable Unavailab Crys Barraza Primary Care Provider [place], Daniel Tierney Primary Care Pro vider [place], Daniel Tierney Referring Provid er Paul TOBACCO 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, HORTENSIA Le Attending Provider [place], Daniel Tierney Primary Care Pro vider [place], Daniel Tierney Referring Provid er Paul TOBACCO 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, HORTENSIA Le Attending Provider [place], Daniel Tierney Primary Care Pro vider [place], Andreas Abnerman Referring Provid er Friend, Dr. Johns Attending Provider [phone] Paul TOBACCO 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, TOBACCO 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-Kimi Le Attending Provider [phone] [place], Andreasmer Tierney Primary Care Pro vider [facility] [place], Andreas Kelsy Referring Provid er Friend, Dr. Johns Attending Provider [phone] Friend, Dr. Johns Referring Provider [phone] Friend, Dr. Johns Other Provider [phone] [place], Andreas eKlsy Primary Care Pro vider Friend, Dr. Johns Attending Provider [phone] [place], Andreas Kelsy Referring Provid er Paul TOBACCO 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, SIRENA-Kimi Le Attending Provider [phone] [place], Daniel Tierney Primary Care Pro vider Friend, Dr. Johns Attending Provider [phone] ROSAS SALINASN-SUPERVISOR RESEARCH SHOP, VANI Primary Care Unavailab noelle HUANG DO, DR JUDSON Godinez Attending Unavailable Dr. Sarah Purdy Emergency Provider Dr. [place] Wisdom Admit Provider Dr. [place] Wisdom Attending Provider Dr. [place] Wisdom Other Provider Dr. Garrick Mcgowan Attending Provider Dr. Laura Li Attending Provider Unavailable Dr. Laura Li Other Provider Unavailable [place], Daniel [place] Primary Care Pro vider Dr. Sarah Pudry Emergency Provider Dr. [place] Wisdomit Provider Dr. [place] Wisdom Attending Provider Dr. [place] Wisdom Other Provider Dr. Garrick Mcgowan Attending Provider Dr. Laura Li Attending Provider Unavailable Dr. Laura Li Other Provider Unavailable [place], [facility] Referring Provid er Dr. Andreas Oliva Attending Provider Dr. Hubert Mo Attending Provider Avinash TOBACCO 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, TOBACCO 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-C Naina Primary Care Provider CAL PAYTON Admitting Unavailable CAL PAYTON Attending Unavailable DULCE CHAVEZ Unavailable [place], [facility] Primary Care Pro vider [place], [facility] Referring Provid er Dr. Andreas Oliva Attending Provider Dr. Hubert Mo Attending Provider Avinash TOBACCO 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, TOBACCO 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-C Naina Primary Care Provider Ernesto Carter DO Unavailable Clinic, [facility] Primary Care Provider Un available [facility], [facility] Referring Provid er [facility], [facility] Primary Care Provider Un available Avinash TOBACCO 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, Naina Unavailable Crys Obrien CNP Primary Care Provider Unallocated , [place] Provider Primary Care Provi yoli Phill TOBACCO 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, Alisson S Unavailable [place] S Attending Unavailable GIOVANA LAKEISSA S Attending Unavailable HUEY CORTES Attending Unavailable JEY JOHNSON Referring Unavaila ble Avinash TOBACCO 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-C, Naina Primary Care Provider Avinash TOBACCO 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-C, Naina Referring Provider Dr. Marco Bartlett MD Attending Provider Carina PACK-Karuna Bolden Attending Provider Dr. Stan Lin DO Referring Provider Dr. Stan Lin DO Emergency Provider Avinash TOBACCO 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-C, Naina Primary Care Provider Dr. Stan Lin DO Attending Provider Mari TOBACCO 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-C, Karina Attending Provider Mari TOBACCO 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-C, Karina Referring Provider Beam TOBACCO 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-C, Zebulun Primary Care Provider Avinash TOBACCO 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-C, Naina Referring Provider Ike TOBACCO 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-C, Shawanda Attending Provider Provider, Ed Physician Emergency Provider Eboni Lim TOBACCO 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-C, Karuna Referring Provider Grayson VARGAS, Dr. Iyer Emergency Provider Avinash TOBACCO 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-C, Naina Primary Care Provider Carina TOBACCO 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-C, Karuna Attending Provider Provider, Ed Physician Attending Provider Eboni Galicia MD, Dr. Iyer Attending Provider Ike TOBACCO 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-CShawanda Referring Provider Fannie VARGAS, Dr. Preciado Attending Provider [phone] Marco Bartlett MD Attending Provider Hazel STEVENSON, Dr. Johns Attending Provider Hazel STEVENSON, Dr. Johns Referring Provider Avinash TOBACCO 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-C, Naina Primary Care Provider Beam TOBACCO 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-C, Zebudeb Attending Provider Dr. Stan Lin DO Attending Provider Dr. Stan Lin DO Referring Provider Dr. Stan Lin DO Emergency Provider Mari TOBACCO 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-C, Karina Attending Provider Mari TOBACCO 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-C, Karina Referring Provider Beam TOBACCO 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-C, Zebulun Primary Care Provider Avinash TOBACCO 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-C, Naina Referring Provider Ike TOBACCO 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-C, Shawanda Attending Provider Provider, Ed Physician Attending Provider Eboni abreu Provider, Ed Physician Emergency Provider Eboni abreu Beam TOBACCO 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-C, Zebulun Referring Provider Grayson VARGAS, Dr. Iyer Attending Provider Grayson VARGAS, Dr. Iyer Emergency Provider Ike TOBACCO 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-C, Shawanda Referring Provider Dhruv VARGAS, Dr. Lara Attending Provider Fannie VARGAS, Dr. Preciado Attending Provider Hazel STEVENSON, Dr. Johns Attending Provider Hazel STEVENSON, Dr. Johns Referring Provider Avinash TOBACCO 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-C, Naina Attending Provider Sarah STEVENSON, Dr. Strange Emergency Provider Avinash TOBACCO 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-C, Naina Primary Care Provider Dr. Stan Lin DO Attending Provider Dr. Stan Lin DO Emergency Provider Beam TOBACCO 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-C, Zebulun Attending Provider Avinash TOBACCO 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-C, Naina Attending Provider Dr. Alexandr Smith DO Emergency Provider Beam TOBACCO 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-C, Zebulun Primary Care Provider Dr. Alexandr Smith DO Attending Provider Rodolfo Das MD Emergency Provider Beam TOBACCO 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-C, Zebulun Primary Care Provider Ike TOBACCO 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-CShawanda Attending Provider Avinash TOBACCO 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-C, Naina Referring Provider Minh VARGAS, Dr. Retana Referring Provider Minh VARGAS, Dr. Retana Emergency Provider Beam TOBACCO 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-C, Zebulun Primary Care Provider Beam TOBACCO 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-C, Zebulun Referring Provider Ike TOBACCO 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-CShawanda Attending Provider Thiago VARGAS, Rodolfo Attending Provider Minh VARGAS, Dr. Retana Attending Provider Dr. Andreas Oliva DO Other Provider Beam TOBACCO 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-C, Zebuluadalgisa Primary Care Physician Beam TOBACCO 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-C, Zebulun Referring Provider Ike TOBACCO 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-C, Shawanda Attending Physician Hazel STEVENSON, Dr. Johns Attending Physician Naina Hoffman Attending Physician Saarh STEVENSON, Dr. Strange Attending Physician Sarah STEVENSON, Dr. Strange Emergency Department Physic melissa Thiago VARGAS, Rodolfo Attending Physician Rodolfo Das MD Emergency Department Physician Minh VARGAS, Dr. Retana Attending Physician Minh VARGAS, Dr. Retana Referring Provider Dr. Mazin Wilkinson MD Emergency Department Physici an Hazel STEVENSON, Dr. Johns Nurse Practitioner Juan M VARGAS, Dr. Mccauley Attending Physician Yessica Russell Referring Provider Yessica Russell Attending Physician Yessica Russell Nurse Practitioner Ike PACK-Shawanda Bolden Referring Provider Cl VARGAS, Dr. León Emergency Department Physician Beam TOBACCO 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-C, Vazquezbudeb Primary Care Physician Beam TOBACCO 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-C, Zebudeb Referring Provider Hazel STEVENSON, Dr. Johns Attending Physician Ike PACK-CShawanda Attending Physician Dr. Mau Smallwood MD Attending Physician Beam TOBACCO 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-C, Zebuluadalgisa Attending Physician Paul TOBACCO 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-C, Zeus Attending Physician Paul TOBACCO 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-C, Zeus Referring Provider Beam VSC, Zebulun Primary Care Unavailable Alexandr Smith Attending Unavailable Rodolfo Das Attending Unavailable Beam VSC, Zebulun Primary Care Unavailable Mau Smallwood Attending Unavailable Beam VSC, Zebulun Primary Care Unavailable Paul TOBACCO 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, Zeus Attending Unavailable Palu TOBACCO 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Zeus Referring Unavailable Beam VSC, Zebulun Primary Care Unavailable Ozzy Greco Attending Unavailable Shawanda Ramires NP Referring Unavailable Beam VSC, Zebulun Primary Care Unavailable Andreas Oliva Consulting Unavailable FriendAndreas Attending Unavailable Beam VSC, Zebulun Referring Unavailable Beam VSC, Zebulun Primary Care Unavailable Yessica Russell Attending Unavail able Yessica Russell Referring Unavail able Beam VSC, Zebulun Primary Care Unavailable FriendAndreas Attending Unavailable Beam VSC, Zebulun Referring Unavailable Beam VSC, Zebulun Primary Care Unavailable Avinash VSC, Naina Primary Care Unavailabl e Stan Lin Attending Unavailable LinStan yates Referring Unavailable Avinash VSC, Naina Primary Care Unavailabl e Stan Lin Attending Unavailable Avinash VSC, Naina Attending Unavailabl e Beam VSC, Zebulun Primary Care Unavailable Shawanda Ramires NP Referring Unavailable Ike PACK, Shawanda Attending Unavailable Beam VSC, Zebulun Primary Care Unavailable Avinash VSC, Naina Primary Care Unavailabl e Beam VSC, Zebulun Attending Unavailable Beam VSC, Zebulun Attending Unavailable Beam VSC, Zebulun Primary Care Unavailable Ike PACK, Shawanda Referring Unavailable Ike PACK, Shawanda Attending Unavailable Beam VSC, Zebulun Primary Care Unavailable Beam VSC, Zebulun Attending Unavailable Beam VSC, Zebulun Primary Care Unavailable Beam VSC, Zebulun Referring Unavailable Beam VSC, Zebulun Attending Unavailable Beam VSC, Zebulun Primary Care Unavailable Shawanda Ramires NP Referring Unavailable Shawanda Ramires NP Attending Unavailable Beam VSC, Zebulun Primary Care Unavailable Karina Guerra NP Attending Unavailable Karina Guerra NP Referring Unavailable Beam VSC, Zebulun Primary Care Unavailable FriendAndreas Attending Unavailable FriendAndreas Referring Unavailable Beam VSC, Zebulun Primary Care Unavailable Beam VSC, Zebulun Primary Care Unavailable Mazin Wilkinson Attending Unavailable Mazin Wilkinson Referring Unavailable Yessica Russell Consulting Unavail able Yessica Russell Referring Unavail able Garrick Mcgowan Attending Unavailable Beam VSC, Zebulun Primary Care Unavailable Shawanda Ramires NP Referring Unavailable Marco Bartlett Attending Unavailable Beam VSC, Zebulun Primary Care Unavailable Avinash VSC, Naina Referring Unavailabl e Shawanda Ramires NP Attending Unavailable Beam VSC, Zebulun Primary Care Unavailable Avinash VSC, Naina Primary Care Unavailabl e Avinash VSC, Naina Referring Unavailabl e Marco Bartlett Attending Unavailable Beam VSC, Zebulun Referring Unavailable Shawanda Ramires NP Attending Unavailable Beam VSC, Zebulun Primary Care Unavailable Zeus Miller NP Attending Unavailable Beam VSC, Zebulun Referring Unavailable Beam VSC, Zebulun Primary Care Unavailable Andreas Oliva Attending Unavailable Beam VSC, Zebulun Primary Care Unavailable Beam VSC, Zebulun Referring Unavailable Avinash VSC, Naina Referring Unavailabl e Andreas Oliva Attending Unavailable Beam VSC, Zebulun Primary Care Unavailable Provider, Ed Physician Attending Unavailab le Beam VSC, Zebulun Primary Care Unavailable Beam VSC, Zebulun Referring Unavailable Beam VSC, Zebulun Primary Care Unavailable Shawanda Ramires NP Attending Unavailable Beam VSC, Zebulun Referring Unavailable Beam VSC, Zebulun Attending Unavailable Beam VSC, Zebulun Primary Care Unavailable Shawanda Ramires NP Referring Unavailable Shawanda Ramires NP Attending Unavailable Beam VSC, Zebulun Primary Care Unavailable Avinash VSC, Naina Primary Care Unavailabl e Beam VSC, Zebulun Attending Unavailable Avinash VSC, Naina Primary Care Unavailabl e Beam VSC, Zebulun Attending Unavailable Jaylon Galicia Attending Unavailable Beam VSC, Zebulun Primary Care Unavailable BENDARAM, JEY LAGUNA Attending Unavaila ble BENDARAM, JEY LAGUNA Referring Unavaila ble LEONID, LAURA Attending Unavailable KIBERA, PERIS Referring Unavailable BENDARAM, JEY LAGUNA Attending Unavaila ble ROXY, CARISSA Attending Unavailable BENDARAM, JEY LAUGNA Referring Unavaila ble LEONID, LAURA Attending Unavailable KIBERA, PERIS Referring Unavailable LEONID, LAURA Attending Unavailable BENDARAM, JEY LAGUNA Attending Unavaila ble KIBERA, PERIS Referring Unavailable LEONID, LAURA Attending Unavailable BENDARAM, JEY LAGUNA Attending Unavaila ble Beam TOBACCO 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-C, Zebulun Primary Care Physician Avinash PACK-CNaina Attending Physician Dr. Alexandr Smith DO Attending Physician Dr. Alexandr Smith DO Emergency Department Physic melissa Thiago VARGAS, Rodolfo Attending Physician Rodolfo Das MD Emergency Department Physician Carina TOBACCO 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-C, Karuna Referring Provider Dr. Andreas Oliva DO Attending Physician [phone] Minh VARGAS, Dr. Retana Attending Physician Dr. Mazin Wilkinson MD Referring Provider [phone] Mazin Wilkinson MD Emergency Department Physici an Dr. Andreas Oliva DO Nurse Practitioner Dr. Garrick Mcgowan MD Attending Physician Yessica Russell Referring Provider Yessica Russell Attending Physician Yessica Russell Nurse Practitioner Ike PACK-Shawanda Bolden Attending Physician Ike PACK-C, Shawanda Referring Provider Cl VARGAS, Dr. León Attending Physician [phone] Mau Smallwood MD Emergency Department Physician Karuna Tejada Attending Physician Zeus Velez Attending Physician Zeus Velez Referring Provider Allergies Allergy Classification Reported Allergen(s) Allergy Type Date of Onset Reaction(s) Facility (20 sources) escitalopram; Translations: [ESCITALOPRAM OXALATE] Drug Allergy 07-15-19 17 Mental Status Change [facility] Repository (20 sources) lactase; Translations: [LACTASE] Drug Allergy 09-12-19 12 Diarrhea, GI Upset [facility] Repository (2 sources) ondansetron; Translations: [ONDANSETRON HCL] Drug Allergy 07-15-19 17 AOF [facility] Repository (20 sources) Seasonal allergy; Translations: [SEASONAL ALLERGIES] Propensity to adverse reactions (disorder) 12-03-19 13 Cough [facility] Repository (1 source) GLUTEN MEAL; Translations: [GLUTEN MEAL] Propensity to adverse reactions to drug (disorder) 07-15-19 17 [facility] Repository (20 sources) Escitalopram; Translations: [escitalopram] Drug Allergy 07-15-19 17 Other: See Comments [facility] Comment on above: increased si (20 sources) Ondansetron; Translations: [ondansetron] Drug Allergy 07-15-19 17 Anaphylaxis, Other: See Comments [facility] (20 sources) Pollen; Translations: [POLLEN EXTRACTS] Allergy to substance 12-10-19 21 Hives, Intolerance [facility] (20 sources) Ondansetron; Translations: [ONDANSETRON (PF) IN DEXTROSE] Drug Allergy 08-22-19 17 Swelling, GI Upset [facility] (13 sources) Tricyclic Compounds Drug Intolerance 08-22-19 17 Other: See Comments [facility] (20 sources) Gluten Flour; Translations: [GLUTEN FLOUR] Food Intolerance 08-22-19 17 Diarrhea [facility] (20 sources) metFORMIN; Translations: [METFORMIN] Drug Allergy 02-28-19 23 Diarrhea, GI Upset [facility] (20 sources) broccoli allergenic extract; Translations: [BROCCOLI] Drug Allergy 04-08-19 Diarrhea [facility] Repository (20 sources) cauliflower allergenic extract; Translations: [CAULIFLOWER] Drug Allergy 04-08-19 Diarrhea [facility] Repository (20 sources) tomato allergenic extract; Translations: [TOMATO] Drug Allergy 04-08-19 GI Upset [facility] Repository (17 sources) Tricyclic Antidepressants And Tricyclic Compounds; Translations: [TRICYCLIC ANTIDEPRESSANTS AND TRICYCLIC COMPOUNDS] Drug Intolerance 08-22-19 Other: See Comments [facility] (1 source) Escitalopram Drug Allergy 12-10-19 [facility] Repository (1 source) metFORMIN Drug Allergy 12-10-19 [facility] Repository (1 source) Ondansetron Drug Allergy 12-10-19 [facility] Repository (1 source) Pollen Drug allergy (disorder) 12-10-19 [facility] Repository Medications Current Medications Medication Drug Class(es) Dates Sig (Normalized) Sig (Original) amLODIPine 2.5 mg oral tablet (20 sources) Dihydropyridine Calcium Channel Radha Start: 12-16-2024 Start: 12-16-2024 Start: 06-10-2024 End: 12-16-2024 Start: 06-10-2024 End: 09-04-2024 take 1 tablet by mouth once daily Amlodipine 2.5 mg tablet Discontinued 2.5 mg PO daily 60 11 July 29, 2024 5:00pm September 04, 2024 9:48pm Start: 04-21-2024 End: 06-02-2024 Start: 04-21-2024 End: 06-02-2024 take 2.5 mg by mouth once daily Amlodipine 10 mg table t Discontinued 2.5 mg PO daily May 29, 2024 2:36pm June 02, 2024 12:02pm Start: 04-21-2024 End: 05-05-2024 take 1 tablet by mouth once daily Amlodipine 10 mg tablet Discontinued 10 mg PO daily 90 3 April 21, 2024 1:00am May 05, 2024 10:22am Start: 04-11-2024 End: 07-15-2024 amoxicillin 875 mg oral tablet (1 source) [...] 12/14/20 Status: Ordered Start: 04-05-2017 End: 10-26-2023 Comment on above: Take 7.5 mg by mouth once daily. 1.6 ml ARIPiprazole lauroxil 276 mg/ml prefilled syringe (20 sources) Start: 09-26-2022 Start: 09-26-2022 ARIPiprazole l auroxil ER (ARISTADA) 441 mg/1.6 mL injection Inject 441 mg intramuscularly every 4 weeks. 09/26/2022 Active Start: 09-26-2022 Aristada 441 M G/1.6ML injection Inject 441 mg into the shoulder, thigh, or buttocks 1 (one) time. 09/26/2022 Active Atogepant (14 sources) Start: 11-28-2024 Start: 09-04-2024 End: 11-28-2024 Start: 09-04-2024 take 1 tablet by vaughn th once daily Atogepant (Atogepant 60 Mg Tablet) 60 mg tablet Active 60 mg PO DAILY September 04, 2024 12:00am Start: 09-04-2024 atogepant (QULIPTA) 60 mg tablet (9 sources) Start: 05-20-2024 take 1 tablet by mouth once daily atogepant (QULIPTA) 60 mg tablet Take 60 mg by mouth once daily. 05/20/2024 Active cholecalciferol 0.025 mg oral tablet (20 sources) Vitamin D Start: 12-18-2022 Start: 12-18-2022 take 1 tablet by vaughn [...] Comment on above: Take 1 capsule by [facility] one time a week. dicyclomine hydrochloride 20 mg oral tablet (20 sources) Anticholinergic Start: 05-08-2024 Start: 09-24-2023 End: 10-10-2023 Start: 08-11-2022 End: 10-03-2022 Start: 08-11-2022 End: 10-03-2022 take 1 capsule by mouth twice daily as needed for pain Dicyclomine 10 mg capsule Discontinued 10 mg PO TWICE A DAY as needed for abdominal pain 60 1 August 11, 2022 12:00am October 03, 2022 8:41am Start: 05-14-2016 End: 05-25-2016 Start: 05-14-2016 End: 05-25-2016 take 2 capsules [...] 0 Refill(s) Start Date: 05/29/16 Status: Ordered Norgestimate-Ethinyl Estradiol (20 sources) Progestin, Estrogen Start: 12-09-2024 Start: 09-23-2024 norgestimate-e thinyl estradiol (MONO-LINYAH) 0.25-0.035 mg tablet Indications: PCOS (polycystic ovarian syndrome) , Obesity, Class III, BMI 40-49.9 (morbid obesity) (HCC) Take 1 tablet by mouth once daily. 28 tablet 2 09/23/2024 Active Start: 09-04-2024 End: 12-09-2024 Start: 09-04-2024 take 0.25 tablet by mouth once daily Norgestimate-Ethinyl Estradiol [Norgestimate 0.25 Mg-Ethinyl Estradiol 0.035 Mg [...] 325 mg oral tablet (20 sources) Start: Comment on above: Take 325 mg by [...] 02/23/2023 07/15/2024 Discontinued Start: 10-03-2022 End: 05-29-2024 Start: 10-03-2022 End: 05-29-2024 Fremanezumab-Vfrm (Ajovy Autoinjector) 225 mg/1.5 mL auto-injector Discontinued 225 mg SC EVERY MONTH October 03, 2022 12:00am May 29, 2024 2:50pm migraine hydrocortisone 10 mg/ml / neomycin 3.5 mg/ml / polymyxin b [id number] unt/ml otic suspension (1 source) Aminoglycoside Antibacterial, Polymyxin-class Antibacterial, Corticosteroid Start: 01-25-2024 End: 01-30-2024 pizxfohc-oxkhqrqyl-rbtxbvyqe isone (CORTISPORIN) 3.5-10,000-1 mg/mL-unit/mL-% otic suspension Indications: Acute otitis media, left Use 3 Drops in the left ear four times daily for 5 days. 10 mL 01/25/2024 01/30/2024 Active imipramine hydrochloride 25 mg oral tablet (20 sources) Tricyclic Antidepressant Start: 12-18-2022 [place] (1 source) Start: 12-14-2020 lithium 300 mg oral capsule Dose : 300 mg = 1 cap(s), Oral, BID, 0 Refill(s) Start Date: 12/14/20 Status: Ordered lithium carbonate 600 mg oral capsule (20 sources) Start: 01-24-2022 Start: 01-24-2022 End: 12-12-2021 take 600 mg by mouth at bedtime [place] Carbonate Acti ve 600 MG PO AT BEDTIME January 24, 2022 1:00am Start: 01-24-2022 take 600 mg by mouth at bedtim e [place] Carbonate Active 600 MG PO AT BEDTIME January 24, 2022 12:00am Start: 04-05-2017 take 1 capsule by mo ut once daily at bedtime lithium carbonate 600 mg capsule Take 600 mg by mouth daily at bedtime. 04/05/2017 Active Start: 04-05-2017 Start: 04-05-2017 take 1 capsule by mo uth twice daily lithium carbonate (ESKALITH) 300 mg capsule Take 300 mg by mouth twice daily. 0 05/03/2020 Active Comment on above: Take 600 mg by mouth twice daily. Take 300 mg by mouth twice daily. metoprolol tartrate 50 mg or al tablet (20 sources) beta-Adrenergic Radha Start: 12-08-2024 Start: 12-08-2024 Start: 10-19-2023 End: 12-08-2024 Start: 10-19-2023 End: 07-21-2024 Start: 10-19-2023 End: 06-23-2024 take 1 tablet by mouth twice daily Metoprolol Tartrate 50 mg tablet Discontinued 50 mg PO TWICE A DAY 180 April 23, 2024 3:46pm June 23, 2024 4:57pm Start: 08-13-2023 End: 10-19-2023 Start: 07-24-2020 End: 12-09-2020 Miscellaneous Medical Supply misc (12 sources) Start: 05-29-2024 Miscellaneous Medical Supply misc [...] tablet (20 sources) Proton Pump Inhibitor Start: 06-03-2023 Start: 08-04-2022 End: 04-18-2023 Start: 05-17-2020 End: 01-08-2024 take 2 tablets [...] 500 mg oral tablet (1 source) Start: 12-12-2021 End: 12-17-2021 take 1 tablet by mouth four times daily penicillin V potassium (V-CILLIN, VEETIDS) 500 mg tablet Indications: Dental infection Take 1 tablet by mouth four times daily for 5 days. 20 tablet 0 12/12/2021 12/17/2021 Active Comment on above: Take 1 tablet by vaughn th four times daily for 5 days. rizatriptan 10 mg oral tablet (20 sources) Serotonin-1b and Serotonin-1d Receptor Agonist Start: 09-04-2024 Start: 06-26-2023 End: 09-23-2023 Start: 06-04-2023 End: 07-15-2024 simvastatin 20 mg oral table t (20 sources) HMG-CoA Reductase Inhibitor Start: 04-14-2023 spironolactone 25 mg oral ta blet (20 sources) Aldosterone Antagonist Start: 11-07-2024 Start: 08-08-2021 End: 01-14-2024 Start: 08-08-2021 End: 01-24-2024 take 1 tablet by mouth twice daily Spironolactone 50 mg tablet Discontinued 0 .ROUTE .COMPLEX 60 1 October 03, 2023 1:43pm October 17, 2023 1:06pm diuretic TAKE 1 TABLET BY MOUTH TWICE A DAY Start: 08-08-2021 End: 09-28-2021 take 1 tablet by mouth once daily Spironolactone 50 mg tablet Discontinued 0 .ROUTE .COMPLEX 28 0 September 09, 2021 4:05pm September 28, 2021 9:26am TAKE 1 TABLET BY MOUTH DAILY Start: 08-08-2021 End: 05-16-2023 Comment on above: Take by mouth. 24 hr divalproex sodium 500 mg extended release oral tablet (9 sources) Mood Stabilizer, Anti-epileptic Agent Start: 12-05-2020 take 500 mg by mouth once daily Divalproex Active 500 MG PO DAILY December 05, 2020 12:00am vitamin b12 1 mg sublingual tablet (20 sources) Vitamin B12 Start: 06-30-2024 Start: 07-24-2022 End: 05-16-2024 Cyanocobalamin 1,000 mcg [...] Ordered Comment on above: Take by mouth. (20 sources) Start: 12-05-2024 Start: 07-08-2024 End: 09-04-2024 Start: 05-29-2024 Start: 09-28-2023 Start: 03-20-2023 Start: 03-16-2022 End: 06-06-2022 Start: 01-24-2022 Start: 11-11-2015 End: 12-09-2020 Completed/Discontinued Medications Medication Drug Class(es) Dates Sig (Normalized) Sig (Original) amitriptyline hydrochloride 25 mg oral tablet (20 sources) Tricyclic Antidepressant Start: 09-04-2024 End: 09-27-2024 Start: 12-12-2021 End: 10-26-2023 amylase 239244 unt / lipase 33867 unt / protease [id number] unt delayed release oral capsule (5 sources) Start: 03-16-2022 End: 06-06-2022 atropine sulfate 0.025 mg / diphenoxylate hydrochloride 2.5 mg oral tablet (20 sources) Anticholinergic, Cholinergic Muscarinic Antagonist, Antidiarrheal Start: 09-25-2024 Diphenoxylate-Atr opine 2.5-0.025 mg tablet Active 1 {tbl} PO THREE TIMES A DAY 90 0 September 25, 2024 12:00am Start: 10-29-2023 End: 11-28-2024 Start: 10-29-2023 Diphenoxylate- Atropine (Lomotil) 2.5-0.025 mg tablet Active 1 {tbl} PO TWICE A DAY as needed for diarrhea 30 2 October 29, 2023 12:00am Control (20 sources) Start: 11-11-2015 End: 12-09-2020 [...] 2015 12:00am December 09, 2020 10:08am control (8 sources) Start: 07-08-2024 End: 09-04-2024 control Discontinued P O July 08, 2024 12:00am September 04, 2024 9:45pm Start: 07-08-2024 control Active PO July 08, 2024 12:00am bisacodyl 5 mg delayed relea se oral tablet (6 sources) Stimulant Laxative Start: 10-14-2024 End: 2024 Start: 10-14-2024 End: 2024 take 4 tablets by mouth once Bisacodyl (Dulcolax (Bisa codyl)) 5 mg tablet,delayed release (DR/EC) Discontinued 20 mg PO ONCE 4 October 14, 2024 12:00am 2024 10:46am Take 4 tabs po once for colonoscopy prep budesonide 3 mg delayed release oral capsule (20 sources) Corticosteroid Start: 10-10-2022 End: 12-31-2023 budesonide EC (Entocort EC) 3 MG 24 hr capsule 10/10/2022 12/31/2023 Discontinued Start: 10-10-2022 End: 05-28-2023 Start: 10-10-2022 End: 02-21-2023 take 9 mg by mouth once daily Budesonide Active 9 MG P O DAILY 90 December 27, 2022 3:38pm cetirizine [...] sources) Quinolone Antimicrobial Start: 01-24-2022 End: 04-04-2022 colestipol hydrochloride 1000 mg oral tablet (2 sources) Bile Acid Sequestrant End: 12-12-2021 take 1 tablet by mouth every twelve hours as needed colestipol (COLESTID) 1 gram tablet Take 1 tablet by mouth twice daily as needed. 0 12/12/2021 Discontinued Comment on above: Take 1 tablet by vaughn th twice daily as needed. COMPOUNDED PRESCRIPTION (3 sources) End: 12-12-2021 COMPOUNDED PRESCRIPTION 1 tablet once daily. control 12/12/2021 Discontinued End: 12-12-2021 COMPOUNDED PRESCRIPTION 1 ta blet once daily. control 0 12/12/2021 Discontinued COMPOUNDED PRESC RIPTION 1 tablet once daily. control 0 Active Comment on above: 1 tablet once daily. control famotidine 40 mg oral tablet (20 sources) Histamine-2 Receptor Antagonist Start: 08-29-2022 End: 09-23-2023 fluconazole 150 mg oral tablet (20 sources) Azole Antifungal Start: 07-27-2023 End: 09-23-2023 FREESTYLE RICHARD 2 SENSOR kit (2 sources) Start: 03-25-2024 End: 05-16-2024 FREESTYLE RICHARD 2 SENSOR kit 1 Each every 2 weeks. 03/25/2024 05/16/2024 Discontinued (Other) Start: 03-25-2024 FREESTYLE LIBR E 2 SENSOR kit 1 Each every 2 weeks. 03/25/2024 Active hydrocortisone 10 mg/ml topical cream (20 sources) Corticosteroid Start: 10-03-2022 End: 12-18-2022 hydrOXYzine pamoate 25 mg oral capsule (20 sources) Antihistamine Start: 12-12-2021 End: 01-24-2024 hyoscyamine sulfate 0.125 mg oral tablet (20 sources) Start: 10-10-2023 End: 11-28-2024 lactulose 667 mg/ml oral solution (20 sources) Osmotic Laxative Start: 09-28-2023 End: 07-15-2024 take 45 mL by mouth twice daily as needed for constipation lactulose 10 gram/15 mL solution TAKE 45 ML BY MOUTH TWICE DAILY NEEDED FOR CONSTIPATION. 09/28/2023 07/15/2024 Discontinued Start: 09-28-2023 End: 11-28-2024 Start: 09-28-2023 take 30 g by mouth [...] for constipation 473 September 28, 2023 12:00am Rlgfzh-Bzptjhjf-Lfavzia (Zenpep) 40,000-126,000- 168,000 unit capsule,delayed release(DR/EC) (20 sources) Start: 03-16-2022 End: 06-06-2022 take 3 capsules by mouth three times daily at mealtime Bsfhvr-Mvwubjus-Jzjubyv (Zenpep) 40,000-126,000- 168,000 unit capsule,delayed release(DR/EC) Discontinued 3 NMA PO THREE TIMES A DAY 189 0 March 16, 2022 1:00am June 06, 2022 11:02am take three capsules with meals Start: 03-16-2022 End: 06-06-2022 take 3 capsules by mouth three times daily at mealtime Accgkj-Gcrjcwoz-Sxdkbhn (Zenpep) 40,000-126,000- 168,000 unit capsule,delayed release(DR/EC) Discontinued 3 NMA PO THREE TIMES A DAY 189 March 16, 2022 1:00am June 06, 2022 11:02am take three capsules with meals Start: 03-16-2022 End: 06-06-2022 take 3 capsules by mouth three times daily at mealtime Ijuxiw-Vhawwhcr-Uyjzity (Zenpep) 40,000-126,000- 168,000 unit capsule,delayed release(DR/EC) Discontinued 3 CAP PO THREE TIMES A DAY 189 March 16, 2022 12:00am June 06, 2022 10:02am take three capsules with meals Start: 03-16-2022 End: 06-06-2022 take 3 capsules by mouth three times daily at mealtime Gchvst-Bmpinefh-Pqxemyv (Zenpep) 40,000-126,000- 168,000 unit capsule,delayed release(DR/EC) Discontinued 3 CAP PO THREE TIMES A DAY 189 March 16, 2022 1:00am June 06, 2022 11:02am take three capsules with meals Start: 03-16-2022 take 3 capsules by m outh three times daily at mealtime Utzqar-Hsspowdo-Awootjh (Zenpep) 40,000-126,000- 168,000 unit capsule,delayed release(DR/EC) Active 3 CAP PO THREE TIMES A DAY 189 March 16, 2022 12:00am take three capsules with meals losartan potassium 50 mg oral tablet (20 sources) Angiotensin 2 Receptor Radha Start: 12-09-2020 End: 12-31-2023 meclizine hydrochloride 12.5 mg oral tablet (2 sources) Antiemetic Start: 02-12-2020 End: 12-12-2021 meclizine (ANTIVERT) 12.5 mg tab Take 1 tablet by mouth as needed. 0 02/12/2020 12/12/2021 Discontinued Comment on above: Take 1 tablet by vaughn th as needed. mecobalamin 1 mg oral lozenge (8 sources) Start: 03-20-2023 End: 2024 Start: 03-20-2023 take 1000 ug by mout [...] swallowing Mecobalamin (Vitamin B12) 1,000 mcg lozenge (17 sources) Start: 03-20-2023 End: 2024 take 1000 ug by mouth once daily Mecobalamin (Vitamin B12) 1,000 mcg lozenge Discontinued 1000 ug PO DAILY March 20, 2023 1:00am 2024 10:47am allow to dissolve in mouth OR may chew lightly before swallowing Start: 03-20-2023 take 1000 ug by mout h once daily Mecobalamin (Vitamin B12) 1,000 mcg lozenge Active 1000 ug PO DAILY March 20, 2023 1:00am allow to dissolve in mouth OR may chew lightly before swallowing medroxyPROGESTERone acetate 10 mg oral tablet (20 sources) Progestin Start: 10-17-2023 End: 07-24-2024 Start: 10-03-2022 End: 12-18-2022 Start: 10-03-2022 End: 12-18-2022 Medroxyprogesterone 10 mg [...] Medroxyprogest erone Active 10 MG PO daily 10 September 28, 2021 12:00am Take daily for 10 days if no spontaneous menses every 3 months metoclopramide 10 mg oral ta blet (20 sources) Dopamine-2 Receptor Antagonist Start: 09-03-2021 End: 2024 Start: 09-03-2021 End: 2024 Start: 09-03-2021 End: 03-16-2022 take 1 tablet [...] mg by mouth four times daily. Active metroNIDAZOLE 500 mg oral ta blet (20 sources) Nitroimidazole Antimicrobial Start: 09-24-2023 End: 10-19-2023 Start: 01-24-2022 End: 04-04-2022 Start: 01-24-2022 End: 04-04-2022 take 1 tablet by mouth every eight hours Metronidazole 500 mg tablet Discontinued 500 mg PO Q8H 30 10 January 24, 2022 1:00am April 04, 2022 11:02am naproxen 500 mg oral tablet (20 sources) Nonsteroidal Anti-inflammatory Drug Start: 03-25-2019 End: 04-04-2022 Start: 03-25-2019 End: 04-04-2022 take 1 tablet by mouth every twelve hours at mealtime Naproxen 500 mg tablet Discontinued 500 mg PO .COMPLEX 30 January 03, 2021 1:00am April 04, 2022 11:02am 500 mg PO Q12 hr first 3 days of menses; administer with food or milk nitrofurantoin, macrocrystals 25 mg / nitrofurantoin, monohydrate 75 mg oral capsule (20 sources) Nitrofuran Antibacterial Start: 10-03-2022 End: 10-10-2022 NORETHINDRONE-ETHINYL ESTRAD (ORTHO-NOVUM , 28, ORAL) (3 sources) End: 12-12-2021 NORETHINDRONE-ETHINY L ESTRAD (ORTHO-NOVUM , , ORAL) Take by mouth. 12/12/2021 Discontinued End: 12-12-2021 NORETHINDRONE-ETHINYL ESTRAD (ORTHO-NOVUM , , ORAL) Take by mouth. 0 12/12/2021 Discontinued NORETHINDRONE-ET HINYL ESTRAD (ORTHO-NOVUM , , ORAL) Take by mouth. 0 Active Comment on above: Take by mouth. polyethylene glycol 3350 51876 mg powder for oral solution (20 sources) Osmotic Laxative Start: 10-17-2023 polyethylene glycol 3350 17 gram/dose powder MIX 4 GRAMS WITH LIQUID AND DRINK ONCE DAILY 10/17/2023 Active Start: 10-17-2023 End: 11-28-2024 Start: 10-17-2023 End: 10-14-2024 Polyethylene Glycol 3350 (Mi ralax) 17 gram/dose powder Active 4 g PO ONCE 238 0 October 14, 2024 1:29pm constipation Mix entire bottle into 64oz of clear liquid for colonoscopy prep promethazine hydrochloride 2 5 mg oral tablet (20 sources) Phenothiazine Start: 08-15-2022 End: 10-03-2022 Start: 01-18-2021 take 25 mg by mouth three times daily Promethazine Active 25 MG PO THREE TIMES A DAY January 18, 2021 12:00am Start: 01-07-2019 End: 01-03-2021 Start: 01-07-2019 End: 12-12-2021 take 1 tablet [...] Dose : 25 mg = 1 supp, MT, q6hr, PRN as needed for nausea/vomiting, # 12 supp, 0 Refill(s) Start Date: 05/30/16 Stop Date: 06/02/16 Status: Ordered Comment on above: Take 1 tablet by vaughn th every 6 hours as needed. propranolol hydrochloride 40 mg oral tablet (3 sources) beta-Adrenergic Radha Start: 0 End: 2 take 1 tablet by mouth twice daily propranolol (INDERAL) 40 mg tablet Take 40 mg by mouth twice daily. 10/31/2019 12/12/2021 Discontinued Comment on above: Take 40 mg by mouth twice daily. sucralfate 1000 mg oral tablet (20 sources) Aluminum Complex Start: End: 5 Start: 10-03-2023 End: 01-24-2024 Problems Active Problems Problem Classification Problem Date Documented Da te Episodic/Chronic Abdominal pain (20 sources) Left upper quadrant pain; Translations: [Left upper quadrant pain] Onset: 07-01-2024 10-04-2023 Episodic Anxiety disorders (20 sources) Anxiety; Translations: [Anxiety disorder, unspecified] Onset: [...] on above: NO MEDS CURRENTLY/TO SEE ENDOCRINOLOGY NO MEDS CURRENTLY/FO LLOWS WITH PCP Diabetes mellitus without complication (17 sources) Prediabetes; Translations: [Prediabetes] Onset: 05-16-2024 Resolved: 05-16-2024 05-16-2024 Episodic Disorders of lipid metabolism (20 sources) Hypercholesterolemia; [...] initial encounter for closed fracture] 02-21-2013 Episodic Genitourinary symptoms and ill-defined conditions (7 sources) History of recurrent urinary tract infection; Translations: [Personal history of urinary (tract) infections] Onset: 12-18-2024 12-09-2024 Episodic Headache; including migraine (20 sources) Refractory [...] disorders (20 sources) Dysmenorrhea; Translations: [Dysmenorrhea, unspecified] Chronic Comment on above: provera first 10 day s each month; labs and US:nl naproxen Miscellaneous mental health disorders (16 sources) Binge eating disorder; Translations: [Binge eating disorder, moderate] Onset: 05-16-2024 05-16-2024 Chronic Mood disorders (20 sources) Bipolar I disorder; Translations: [Bipolar disorder, unspecified] Onset: 05-20-2016 08-21-2016 Chronic Nausea and vomiting (20 sources) Nausea and vomiting; Translations: [Nausea with vomiting, unspecified] Onset: 05-16-2024 Episodic Noninfectious gastroenteritis (20 sources) Colitis; Translations: [Noninfective gastroenteritis and colitis, unspecified] 02-01-2022 Episodic Nonmalignant breast conditions (20 sources) Abscess of breast; Translations: [Abscess of the breast and nipple] 12-05-2023 Episodic Nonspecific chest pain (20 sources) Chest pain; Translations: [Chest pain, unspecified] Onset: 11-30-2024 01-23-2022 Episodic Other bone disease and musculoskeletal deformities (12 sources) Juvenile osteochondrosis of spine; 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, site unspecified] Onset: 01-31-2012 05-16-2024 Chronic Other connective tissue disease (1 source) Pain in left foot; Translations: [Pain in left foot] 01-07-2020 Episodic Other connective tissue disease (20 sources) Pain in right arm; Translations: [Pain [...] with diarrhea] 05-16-2024 Chronic Other gastrointestinal disorders (12 sources) Irritable bowel syndrome; Translations: [Irritable bowel syndrome without diarrhea] Onset: 11-26-2015 05-16-2024 Chronic Other gastrointestinal disorders (20 sources) Diarrhea; Translations: [Diarrhea, unspecified] 01-08-2019 Episodic Other gastrointestinal disorders (20 sources) Mass of abdominal cavity structure; Translations: [Intra-abdominal and pelvic swelling, mass and lump, unspecified site] 10-02-2023 Episodic Other gastrointestinal disorders (17 sources) Acute diarrhea; Translations: [Diarrhea, unspecified] 09-21-2024 Episodic Other gastrointestinal disorders (2 sources) Diarrhea, unspecified; Translations: [Diarrhea, unspecified] Onset: 11-12-2024 Episodic Other injuries and conditions due to external causes (20 sources) Open wound; Translations: [Other injury of unspecified body region, initial encounter] 12-05-2023 Episodic Other liver diseases (20 sources) Steatosis of liver; Translations: [Fatty (change of) liver, not elsewhere classified] Onset: 02-09-2023 01-30-2023 Chronic Other liver diseases (6 sources) Fatty (change of) liver, not elsewhere classified; Translations: [Other chronic nonalcoholic liver disease] Onset: 05-16-2024 01-30-2023 Chronic Other nervous system disorders (20 sources) Neuropathy; Translations: [Polyneuropathy, unspecified] 12-05-2023 Chronic Other nervous system disorders (1 source) Loss of sense of smell; Translations: [Anosmia] Episodic Other nervous system disorders (20 sources) Paresthesia of right lower limb; Translations: [Paresthesia of skin] 10-13-2020 Episodic Other nervous system disorders (20 sources) Paresthesia; Translations: [Paresthesia of skin] 06-03-2024 Episodic Other nervous system disorders (1 source) Paresthesia of skin; Translations: [Paresthesia of skin] Onset: 12-13-2024 Episodic Other non-traumatic joint disorders (20 sources) Pain in left knee; Translations: [Left knee pain] 08-24-2021 Episodic Other nutritional; endocrine; and metabolic disorders (20 sources) Insulin resistance; Translations: [Metabolic syndrome] 10-03-2022 Chronic Other nutritional; endocrine; and metabolic disorders (20 sources) Morbid obesity; Translations: [Morbid (severe) obesity due to excess calories] 11-23-2022 Chronic Other nutritional; endocrine; and metabolic disorders (20 sources) Obesity; Translations: [Obesity, unspecified] 03-20-2023 Chronic Other nutritional; endocrine; and metabolic disorders (3 sources) Obesity, unspecified; Translations: [Obesity, unspecified] 03-20-2023 Chronic Other nutritional; endocrine; and metabolic disorders (20 sources) Body mass index 40+ - severely obese; Translations: [Morbid (severe) obesity due to excess calories] Onset: 10-26-2023 10-26-2023 Chronic Other nutritional; endocrine; and metabolic disorders (2 sources) Morbid (severe) obesity due to excess calories; Translations: [Obesity, Class III, BMI 40-49.9 (morbid obesity) (HCC)] Onset: 10-26-2023 Chronic Other nutritional; endocrine; and metabolic disorders (1 source) Severe obesity; Translations: [Class 3 severe obesity without serious comorbidity with body mass index (BMI) of 45.0 to 49.9 in adult, unspecified obesity type (HCC)] 10-19-2024 Chronic Other nutritional; endocrine; and metabolic disorders (1 source) Body mass index (BMI) 45.0-49.9, adult; Translations: [Class 3 severe obesity without serious comorbidity with body mass index (BMI) of 45.0 to 49.9 in adult, unspecified obesity type (HCC)] Onset: 11-25-2024 Chronic Other screening for suspected conditions (not mental disorders or infectious disease) (20 sources) CT of abdomen abnormal; Translations: [Abnormal findings on diagnostic imaging of other abdominal regions, including retroperitoneum] Onset: 08-13-2024 10-04-2023 Episodic Other skin disorders (20 sources) Hirsutism; Translations: [Hirsutism] Onset: 10-17-2023 08-08-2021 Episodic Comment on above: spirolactone Other skin disorders (17 sources) Hirsutism; Translations: [Hirsutism] Onset: 05-16-2024 Episodic Other skin disorders (6 sources) Hidradenitis [...] source) Pain; Translations: [Pain, unspecified] 11-27-2023 Episodic Screening and history of mental health and substance abuse codes (20 sources) H/O: psychiatric disorder; Translations: [Personal history of other mental and behavioral disorders] Onset: 05-16-2024 05-16-2024 Episodic Skin and subcutaneous tissue infections (20 [...] sources) Syncope; Translations: [Syncope and collapse] Onset: 11-18-2024 12-09-2022 Episodic Comment on above: OCC Unclassified (2 sources) Binge eating disorder, moderate; Translations: [Binge eating disorder, moderate] Onset: 05-16-2024 Unclassified (1 source) Class 3 severe obesity without serious comorbidity with body mass index (BMI) of 45.0 to 49.9 in adult, unspecified obesity type (HCC); Translations: [Class 3 severe obesity without serious comorbidity with body mass index (BMI) of 45.0 to 49.9 in adult, unspecified obesity type (HCC)] Onset: 11-25-2024 Unclassified (1 source) Obesity, Class III, BMI 40-49.9 (morbid obesity) (HCC); Translations: [Obesity, Class III, BMI 40-49.9 (morbid obesity) ([facility])] Onset: 10-26-2023 Unclassified (1 source) PCOS Onset: 07-15-2024 Viral infection (20 sources) Disease caused by 2019-nCoV; Translations: [COVID-19] 05-28-2020 Episodic Past or Other Problems Problem Classification Problem Date Documented Date Episodic/Chronic Cardiac dysrhythmias (20 sources) Palpitations; Translations: [Palpitations] Onset: 07-11-2023 05-16-2024 Episodic Other aftercare (1 source) Other nursing home (current) drug therapy; Translations: [Other terminal carman (current) drug therapy] Onset: 05-27-2024 Episodic Other female genital disorders (1 source) Other specified noninflammatory disorders of vagina; Translations: [Other specified noninflammatory disorders of vagina] Onset: 09-08-2024 Episodic Other skin disorders (12 sources) Hidradenitis; Translations: [Hidradenitis suppurativa] Onset: 05-16-2024 05-16-2024 Episodic Results Test Name Value Interpretation Reference Range Facility Urine Cultureon 12-10-2024 [facility] Below infection leve l. Mixed Gram Pos Gram Neg Org [place] Count 1000-10,000 MIXC Mixed contaminants. Submit a new specimen if indicated. Normal [facility] Comment on above: Performed By: #### M 100.6976 ####[facility] [id number] [place], [place], [id number] [facility] Visit Reporton 12-09-2024 [facility] Visit Report Normal [facility] Urine cultureOrdered By: Shalonda Miller on 12-09-2024 Bacteria identified Cx Nom (U) Mixed Gram Pos & Gram Neg Org Abnormal [facility] Bacteria identified Cx Nom (U) Mixed Gram Pos & Gram Neg Org Abnormal [facility] Absolute lymphocyte countOrd ered By: Shawanda Ramires on 11-28-2024 Lymphocytes Auto (Unsp spec) [#/Vol] 2.18 10*3/uL 0.83-4.51 [facility] Anion gap in Serum or Plasma Ordered By: Shawanda Ramires on 11-28-2024 Anion gap [Moles/Vol] 9 mmol/L 5- [facility] Automated lymphocyte count a s percentage of total leukocytesOrdered By: Shawanda Ramires on 11-28-2024 Lymphocytes/100 WBC Auto (Unsp spec) 27.7 % - [facility] BUN/creatinine ratioOrdered By: Shawanda Ramires on 11-28-2024 Urea nitrogen/Creatinine [Mass ratio] 22.0 mg/mg High - [facility] Basophil percentageOrdered B y: Shawanda Ramires on 11-28-2024 Basophils/100 WBC (Bld) 0.6 % 0-1 [facility] Bilirubin, totalOrdered By: Shawanda Ramires on 11-28-2024 Bilirubin [Mass/Vol] 0.26 mg/dL 0.00-1.30 [facility] CBC W/Diff, Automatedon 11-19 Absolute Lymph 2.18 X10 3/uL Normal 0.83-4.51 [facility] Comment on above: Performed By: #### L [id number], L100.0100, L501.9060, L500.4050, L501.06878, L501.5200, L506.0400, L503.7505 ####[facility] [address] [place], [address] Absolute Neut 4.8 X10 3/uL Normal 2.0-7.7 [facility] Comment on above: Performed By: #### L [id number], L100.0100, L501.9060, L500.4050, L501.70363, L501.5200, L506.0400, L503.7505 ####[facility] [address] [place], [address] Basophils/100 WBC (Bld) 0.6 % Normal 0-1 [facility] Comment on above: Performed By: #### L [id number], L100.0100, L501.9060, L500.4050, L501.74238, L501.5200, L506.0400, L503.7505 ####[facility] [address] [place], [address] Eosinophils/100 WBC (Bld) 1.3 % Normal 0-5 [facility] Comment on above: Performed By: #### L [id number], L100.0100, L501.9060, L500.4050, L501.44127, L501.5200, L506.0400, L503.7505 ####[facility] [address] [place], [address] Erythrocyte distribution width (RBC) [Ratio] 14.9 % High 11.6-14.6 [facility] Comment on above: Performed By: #### L [id number], L100.0100, L501.9060, L500.4050, L501.41699, L501.5200, L506.0400, L503.7505 ####[facility] [address] [place], [address] Hematocrit (Bld) [Volume fraction] 37.4 % Normal 37-47 [facility] Comment on above: Performed By: #### L [id number], L100.0100, L501.9060, L500.4050, L501.59122, L501.5200, L506.0400, L503.7505 ####[facility] [address] [place], [address] Hemoglobin (Bld) [Mass/Vol] 12.1 g/dL Normal 12.0-15.0 [facility] Comment on above: Performed By: #### L [id number], L100.0100, L501.9060, L500.4050, L501.30189, L501.5200, L506.0400, L503.7505 ####[facility] [address] [place], [address] IG% 0.300 Normal 0.0-0.9 [facility] Comment on above: Result Comment: IG% - Immature Granulocytes (promyelocytes, myelocytes andmetamyelocytes) > 1% indicates that a LEFT SHIFT is Present. Performed By: #### L [id number], L100.0100, L501.9060, L500.4050, L501.90357, L501.5200, L506.0400, L503.7505 ####[facility] [address] [place], [address] Lymphocytes/100 WBC (Bld) 27.7 % Normal 19-41 [facility] Comment on above: Performed By: #### L [id number], L100.0100, L501.9060, L500.4050, L501.13778, L501.5200, L506.0400, L503.7505 ####[facility] [address] [place], [address] MCH (RBC) [Entitic mass] 27.6 pg Normal 27.0-32.0 [facility] Comment on above: Performed By: #### L [id number], L100.0100, L501.9060, L500.4050, L501.63870, L501.5200, L506.0400, L503.7505 ####[facility] [address] [place], [address] MCHC (RBC) [Mass/Vol] 32.4 g/dL Normal 32-36 [facility] Comment on above: Performed By: #### L [id number], L100.0100, L501.9060, L500.4050, L501.07960, L501.5200, L506.0400, L503.7505 ####[facility] [address] [place], [address] MCV (RBC) [Entitic vol] 85.2 fL Normal 81-99 [facility] Comment on above: Performed By: #### L [id number], L100.0100, L501.9060, L500.4050, L501.81740, L501.5200, L506.0400, L503.7505 ####[facility] [facility] [address] [place], [address] Monocytes/100 WBC (Bld) 8.8 % Normal 0-10 [facility] Comment on above: Performed By: #### L 501.9520, L100.0100, L501.9060, L500.4050, L501.78635, L501.5200, L506.0400, L503.7505 ####[facility] [address] [place], [address] Neutrophils/100 WBC (Bld) 61.3 % Normal 47-70 [facility] Comment on above: Performed By: #### L 501.9520, L100.0100, L501.9060, L500.4050, L501.95885, L501.5200, L506.0400, L503.7505 ####[facility] [address] [place], [address] Nucleated RBC (Bld) [#/Vol] 0 10*3/uL Normal 0-5 [facility] Comment on above: Performed By: #### L 501.9520, L100.0100, L501.9060, L500.4050, L501.26292, L501.5200, L506.0400, L503.7505 ####[facility] [address] [place], [address] Platelet mean volume (Bld) [Entitic vol] 9.1 fL Normal 6.2-12.0 [facility] Comment on above: Performed By: #### L 501.9520, L100.0100, L501.9060, L500.4050, L501.21314, L501.5200, L506.0400, L503.7505 ####[facility] [address] [place], [address] Platelets (Bld) [#/Vol] 383 10*3/uL Normal 150-450 [facility] Comment on above: Performed By: #### L 501.9520, L100.0100, L501.9060, L500.4050, L501.77952, L501.5200, L506.0400, L503.7505 ####[facility] [address] [place], [address] RBC (Bld) [#/Vol] 4.39 10*6/uL Normal 4.2-5.4 [facility] Comment on above: Performed By: #### L 501.9520, L100.0100, L501.9060, L500.4050, L501.40890, L501.5200, L506.0400, L503.7505 ####[facility] [address] [place], [address] RDW SD 47.3 fl High 35.1-43.9 [facility] Comment on above: Performed By: #### L 501.9520, L100.0100, L501.9060, L500.4050, L501.90599, L501.5200, L506.0400, L503.7505 ####[facility] [address] [place], [address] WBC (Bld) [#/Vol] 7.9 10*3/uL Normal 4.4-11.[address] [facility] Comment on above: Performed By: #### L 501.9520, L100.0100, L501.9060, L500.4050, L501.22940, L501.5200, L506.0400, L503.7505 ####[facility] [address] [place], [address] Carbon dioxide, total [Moles /volume] in Central venous bloodOrdered By: Shawanda Ramires on 11-28-2024 CO2 [Moles/Vol] 21.6 mmol/L 21.0-32.0 [facility] Cardiology Visit Reporton Cardiology Visit Report Normal [facility] Chloride assayOrdered By: Kirk Ramires on 11-28-2024 Chloride [Moles/Vol] 107 mmol/L 98-108 [facility] Comprehensive Metabolic Prof ilon 11-28-2024 Albumin [Mass/Vol] 3.7 g/dL Normal 3.5-5.[address] [facility] Comment on above: Performed By: #### L 501.9520, L100.0100, L501.9060, L500.4050, L501.36187, L501.5200, L506.0400, L503.7505 ####[facility] [address] [place], [address] Albumin/Globulin [Mass ratio] 1.3 {ratio} Normal 0.9-2.4 [facility] Comment on above: Performed By: #### L 501.9520, L100.0100, L501.9060, L500.4050, L501.74613, L501.5200, L506.0400, L503.7505 ####[facility] [address] [place], [address] ALK PHOS 51 U/L Normal 35-104 [facility] Comment on above: Performed By: #### L 501.9520, L100.0100, L501.9060, L500.4050, L501.57519, L501.5200, L506.0400, L503.7505 ####[facility] [address] [place], [address] ALT [Catalytic activity/Vol] 39 U/L High <=34 [facility] Comment on above: Performed By: #### L 501.9520, L100.0100, L501.9060, L500.4050, L501.10887, L501.5200, L506.0400, L503.7505 ####[facility] [address] [place], [address] AST [Catalytic activity/Vol] 39 U/L High <=31 [facility] Comment on above: Performed By: #### L 501.9520, L100.0100, L501.9060, L500.4050, L501.80228, L501.5200, L506.0400, L503.7505 ####[facility] [address] [place], [address] Bilirubin [Mass/Vol] 0.26 mg/dL Normal 0.00-1.30 [facility] Comment on above: Performed By: #### L 501.9520, L100.0100, L501.9060, L500.4050, L501.73556, L501.5200, L506.0400, L503.7505 ####[facility] [address] [place], [address] BUN/CRE 22.0 RATIO High 10-20 [facility] Comment on above: Performed By: #### L 501.9520, L100.0100, L501.9060, L500.4050, L501.16559, L501.5200, L506.0400, L503.7505 ####[facility] [address] [place], [address] Calcium [Mass/Vol] 9.0 mg/dL Normal 7.6-11.[address] [facility] Comment on above: Performed By: #### L 501.9520, L100.0100, L501.9060, L500.4050, L501.41766, L501.5200, L506.0400, L503.7505 ####[facility] [address] [place], [address] Chloride [Moles/Vol] 107 mmol/L Normal 98-108 [facility] Comment on above: Performed By: #### L 501.9520, L100.0100, L501.9060, L500.4050, L501.57164, L501.5200, L506.0400, L503.7505 ####[facility] [address] [place], [place], [phone] CO2 [Moles/Vol] 21.6 mmol/L Normal 21.0-32.0 [facility] Comment on above: Performed By: #### L 501.9520, L100.0100, L501.9060, L500.4050, L501.35857, L501.5200, L506.0400, L503.7505 ####[facility] [address] [place], [place], [phone]) Creatinine [Mass/Vol] 0.68 mg/dL Low 0.70-1.20 [facility] Comment on above: Performed By: #### L 501.9520, L100.0100, L501.9060, L500.4050, L501.04447, L501.5200, L506.0400, L503.7505 ####[facility] [address] [place], [place], [phone]04) GAP 9 Normal 5-15 [facility] Comment on above: Performed By: #### L 501.9520, L100.0100, L501.9060, L500.4050, L501.52005, L501.5200, L506.0400, L503.7505 ####[facility] [address] [place], [place], [phone]) GFR/1.73 sq M.predicted among non-blacks MDRD (S/P/Bld) [Vol rate/Area] 121 mL/min/{1.73_m2} Normal >60 [facility] Comment on above: Result Comment: mL/m in/1.73m2 CKD-EPI Creatinine Equation (2020) Performed By: #### L 501.9520, L100.0100, L501.9060, L500.4050, L501.07830, L501.5200, L506.0400, L503.7505 ####[facility] [address] [place], [address] Globulin (S) [Mass/Vol] 2.9 g/dL Normal 2.2-4.2 [facility] Comment on above: Performed By: #### L 501.9520, L100.0100, L501.9060, L500.4050, L501.20075, L501.5200, L506.0400, L503.7505 ####[facility] [address] [place], [address] Glucose [Mass/Vol] 89 mg/dL Normal 70-[address] [facility] Comment on above: Performed By: #### L 501.9520, L100.0100, L501.9060, L500.4050, L501.74339, L501.5200, L506.0400, L503.7505 ####[facility] [address] [place], [address] Potassium [Moles/Vol] 4.6 mmol/L Normal 3.3-5.1 [facility] Comment on above: Performed By: #### L 501.9520, L100.0100, L501.9060, L500.4050, L501.08825, L501.5200, L506.0400, L503.7505 ####[facility] [address] [place], [address] Sodium [Moles/Vol] 138 mmol/L Normal 133-[address] [facility] Comment on above: Performed By: #### L 501.9520, L100.0100, L501.9060, L500.4050, L501.59077, L501.5200, L506.0400, L503.7505 ####[facility] [address] [place], [address] T PROT 6.6 g/dL Normal 5.9-8.4 [facility] Comment on above: Performed By: #### L 501.9520, L100.0100, L501.9060, L500.4050, L501.85204, L501.5200, L506.0400, L503.7505 ####[facility] [address] [place], [address] Urea nitrogen [Mass/Vol] 15 mg/dL Normal 4-19 [facility] Comment on above: Performed By: #### L 501.9520, L100.0100, L501.9060, L500.4050, L501.05366, L501.5200, L506.0400, L503.7505 ####[facility] [address] [place], [address] Eosinophil percentageOrdered By: Shawanda Ramires on 11-28-2024 Eosinophils/100 WBC (Bld) 1.3 % 0-5 [facility] Erythrocyte distribution wid th ratioOrdered By: Shawanda Ramires on 11-28-2024 Erythrocyte distribution width (RBC) [Ratio] 14.9 % High 11.6-14.6 [facility] Erythrocyte distribution wid th standard deviationOrdered By: Shawanda Ramires on 11-28-2024 Erythrocyte distribution width (RBC) [Ratio] 47.3 fl High 35.1-43.9 [facility] Free T3on 11-28-2024 Free T3 [Mass/Vol] 2.8 pg/mL Normal 2.18-3.[address] [facility] Comment on above: Performed By: #### L 501.9520, L100.0100, L501.9060, L500.4050, L501.10589, L501.5200, L506.0400, L503.7505 ####[facility] [address] [place], [place], [phone] Free X8Gzvmfxe By: Shawanda byrnes on 11-28-2024 Free T3 [Mass/Vol] 2.8 pg/mL 2.18-3.[address] [facility] Glomerular filtration rate ( GFR) estimation/1.73 sq m using serum, plasma, or whole bOrdered By: Shawanda Ramires on 11-28-2024 GFR/1.73 sq M.predicted among non-blacks MDRD (S/P/Bld) [Vol rate/Area] 121 mL/min/{1.73_m2} >60 [facility] Hematocrit Auto (Bld) [Volum e fraction]Ordered By: Shawanda Ramires on 11-28-2024 Hematocrit (Bld) [Volume fraction] 37.4 % 37-47 [facility] Hemoglobin measurementOrdere d By: Shawanda Ramires on 11-28-2024 Hemoglobin (Bld) [Mass/Vol] 12.1 g/dL 12.0-15.0 [facility] Immature granulocytes/100 WB C Auto (Bld)Ordered By: Shawanda Ramires on 11-28-2024 Immature granulocytes/100 WBC (Bld) 0.300 % 0.0-0.9 [facility] Lithiumon 11-28-2024 LI 0.69 mmol/L Normal 0.60-1.20 [facility] Comment on above: Order Comment: Performed By: #### L 501.9520, L100.0100, L501.9060, L500.4050, L501.36685, L501.5200, L506.0400, L503.7505 ####[facility] [address] [place], [place], [phone] MCV (mean corpuscular volume ) determinationOrdered By: Shawanda Ramires on 11-28-2024 MCV (RBC) [Entitic vol] 85.2 fL 81-99 [facility] Magnesiumon 11-28-2024 Magnesium [Mass/Vol] 2.1 mg/dL Normal 1.5-2.2 [facility] Comment on above: Performed By: #### L 501.9520, L100.0100, L501.9060, L500.4050, L501.49854, L501.5200, L506.0400, L503.7505 ####[facility] [address] [place], [address] Magnesium measurement (mass/ volume)Ordered By: Shawanda Ramires on 11-28-2024 Magnesium (Unsp spec) [Mass/Vol] 2.1 mg/dL 1.5-2.2 [facility] Mean corpuscular hemoglobin (MCH) determinationOrdered By: Shawanda Ramires on 11-28-2024 MCH (RBC) [Entitic mass] 27.6 pg 27.0-32.0 [facility] Monocyte percentageOrdered B y: Shawanda Ramires on 11-28-2024 Monocytes/100 WBC (Bld) 8.8 % 0-10 [facility] Natriuretic peptide.B prohor erica N-Terminal [Mass/volume] in Serum or PlasmaOrdered By: Shawanda Ramires on 11-28-2024 Natriuretic peptide.B prohormone N-Terminal [Mass/Vol] 144 pg/mL <450 [facility] Neutrophil percentageOrdered By: Shawanda Ramires on 11-28-2024 Neutrophils/100 WBC (Bld) 61.3 % 47-70 [facility] No Panel InformationOrdered By: Shawanda Ramires on 11-28-2024 39 U/L High <32 [facility] Platelet countOrdered By: Kirk Ramires on 11-28-2024 Platelets (Bld) [#/Vol] 383 10*3/uL 150-450 [facility] Potassium measurement (mass/ volume)Ordered By: Shawanda Ramires on 11-28-2024 Potassium (Unsp spec) [Mass/Vol] 4.6 mmol/L 3.3-5.1 [facility] Pro- Brain NATRIURETIC PEPTI Amara 11-28-2024 Natriuretic peptide B (Bld) [Mass/Vol] 144 pg/mL Normal <=450 [facility] Comment on above: Result Comment: Hear t Failure Unlikely: < 300 pg/mLHeart Failure Likely< 50 Years: > 450 pg/mL50-75 Years: > 900 pg/mL>75 Years: > 1800 pg/mL Performed By: #### L 501.9501, L100.0100, L501.9060, L500.4050, L501.15498, L501.5200, L506.0400, L503.7505 ####[facility] [address] [place], [address] RBC Auto (Bld) [#/Vol]Ordere d By: Shawanda Ramires on 11-28-2024 RBC (Bld) [#/Vol] 4.39 10*6/uL 4.2-5.4 [facility] Serum creatinine measurement (mass/volume)Ordered By: Shawanda Ramires on 11-28-2024 Creatinine [Mass/Vol] 0.68 mg/dL Low 0.70-1.20 [facility] Serum globulin measurementOr dered By: Shawanda Ramires on 11-28-2024 Globulin (S) [Mass/Vol] 2.9 g/dL 2.2-4.2 [facility] Serum glucose measurement (m ass/volume)Ordered By: Shawanda Ramires on 11-28-2024 Glucose [Mass/Vol] 89 mg/dL 70-[address] [facility] Serum or plasma alanine godinez otransferase (ALT) measurementOrdered By: Shawanda Ramires on 11-28-2024 ALT [Catalytic activity/Vol] 39 U/L High <35 [facility] Serum or plasma albumin cherelle urement (mass/volume)Ordered By: Shawanda Ramires on 11-28-2024 Albumin [Mass/Vol] 3.7 g/dL 3.5-5.[address] [facility] Serum or plasma albumin/glob ulin mass ratioOrdered By: Shawanda Ramires on 11-28-2024 Albumin/Globulin [Mass ratio] 1.3 {ratio} 0.9-2.4 [facility] Serum or plasma alkaline rohit sphatase measurementOrdered By: Shawanda Ramires on 11-28-2024 ALP [Catalytic activity/Vol] 51 U/L 35-104 [facility] Serum or plasma calcium cherelle urement (mass/volume)Ordered By: Shawanda Ramires on 11-28-2024 Calcium [Mass/Vol] 9.0 mg/dL 7.6-11.[address] [facility] Serum or plasma urea nitroge n measurement (mass/volume)Ordered By: Shawanda Ramires on 11-28-2024 Urea nitrogen [Mass/Vol] 15 mg/dL 4-19 [facility] Sodium levelOrdered By: Danielle Ramires on 11-28-2024 Sodium [Moles/Vol] 138 mmol/L 133-[address] [facility] T4 Free Directon 11-28-2024 T4 FREE DIRECT 1.10 ng/dL Normal 0.76-1.46 [facility] Comment on above: Performed By: #### L 501.9520, L100.0100, L501.9060, L500.4050, L501.85768, L501.5200, L506.0400, L503.7505 ####[facility] [address] [place], [place], [phone] T4 freeOrdered By: Shawanda byrnes on 11-28-2024 Free T4 [Mass/Vol] 1.10 ng/dL 0.76-1.[address] [facility] TSH DL <= 0.005 mIU/L QnOrde red By: Shawanda Ramires on 11-28-2024 TSH Qn 1.400 uIU/mL 0.300-4.200 [facility] Thyroid Stim Hormone (TSH)on 11-28-2024 TSH 1.400 uIU/mL Normal 0.300-4.200 [facility] Comment on above: Performed By: #### L 501.9520, L100.0100, L501.9060, L500.4050, L501.22210, L501.5200, L506.0400, L503.7505 ####[facility] [address] [place], [place], [phone] Total proteinOrdered By: Timothy Ramires on 11-28-2024 Protein [Mass/Vol] 6.6 g/dL 5.9-8.[address] [facility] White blood cell (WBC) count Ordered By: Shawanda Ramires on 11-28-2024 WBC (Bld) [#/Vol] 7.9 10*3/uL 4.4-11.[address] [facility] Absolute lymphocyte countOrd ered By: Karuna Lim on 11-20-2024 Lymphocytes Auto (Unsp spec) [#/Vol] 1.72 10*3/uL 0.83-4.51 [facility] Anion gap in Serum or Plasma Ordered By: Zebulun Beam on 11-20-2024 Anion gap [Moles/Vol] 11 mmol/L - [facility] Automated lymphocyte count a s percentage of total leukocytesOrdered By: Zebulun Beam on 11-20-2024 Lymphocytes/100 WBC Auto (Unsp spec) 23.1 % - [facility] BUN/creatinine ratioOrdered By: Zebulun Beam on 11-20-2024 Urea nitrogen/Creatinine [Mass ratio] 19.2 mg/mg 12-08 [facility] Basophil percentageOrdered B y: Zebulun Beam on 11-20-2024 Basophils/100 WBC (Bld) 0.5 % 0-1 [facility] Bilirubin, totalOrdered By: Zebulun Beam on 11-20-2024 Bilirubin [Mass/Vol] 0.39 mg/dL 0.00-1.30 [facility] CBC W/Diff, Automatedon Absolute Lymph 1.72 X10 3/uL Normal 0.83-4.51 [facility] Comment on above: Performed By: #### L 500.4050, L506.1001, L503.0106, L100.0100, L501.9520 ####[facility] [address] [place], [address] Absolute Neut 5.0 X10 3/uL Normal 2.0-7.7 [facility] Comment on above: Performed By: #### L 500.4050, L506.1001, L503.0106, L100.0100, L501.9520 ####[facility] [address] [place], [address] Basophils/100 WBC (Bld) 0.5 % Normal 0-1 [facility] Comment on above: Performed By: #### L 500.4050, L506.1001, L503.0106, L100.0100, L501.9520 ####[facility] [address] [place], [address] Eosinophils/100 WBC (Bld) 1.2 % Normal 0-5 [facility] Comment on above: Performed By: #### L 500.4050, L506.1001, L503.0106, L100.0100, L501.9520 ####[facility] [address] [place], [address] Erythrocyte distribution width (RBC) [Ratio] 14.6 % Normal 11.6-14.6 [facility] Comment on above: Performed By: #### L 500.4050, L506.1001, L503.0106, L100.0100, L501.9520 ####[facility] [address] [place], [address] Hematocrit (Bld) [Volume fraction] 38.8 % Normal 37-47 [facility] Comment on above: Performed By: #### L 500.4050, L506.1001, L503.0106, L100.0100, L501.9520 ####[facility] [address] [place], [address] Hemoglobin (Bld) [Mass/Vol] 12.3 g/dL Normal 12.0-15.0 [facility] Comment on above: Performed By: #### L 500.4050, L506.1001, L503.0106, L100.0100, L501.9520 ####[facility] [address] [place], [address] IG% 0.300 Normal 0.0-0.9 [facility] Comment on above: Result Comment: IG% - Immature Granulocytes (promyelocytes, myelocytes andmetamyelocytes) > 1% indicates that a LEFT SHIFT is Present. Performed By: #### L 500.4050, L506.1001, L503.0106, L100.0100, L501.9520 ####[facility] [address] [place], [address] Lymphocytes/100 WBC (Bld) 23.1 % Normal 19-41 [facility] Comment on above: Performed By: #### L 500.4050, L506.1001, L503.0106, L100.0100, L501.9520 ####[facility] [address] [place], [address] MCH (RBC) [Entitic mass] 27.5 pg Normal 27.0-32.0 [facility] Comment on above: Performed By: #### L 500.4050, L506.1001, L503.0106, L100.0100, L501.9520 ####[facility] [address] [place], [address] MCHC (RBC) [Mass/Vol] 31.7 g/dL Low 32-36 [facility] Comment on above: Performed By: #### L 500.4050, L506.1001, L503.0106, L100.0100, L501.9520 ####[facility] [address] [place], [address] MCV (RBC) [Entitic vol] 86.6 fL Normal 81-99 [facility] Comment on above: Performed By: #### L 500.4050, L506.1001, L503.0106, L100.0100, L501.9520 ####[facility] [address] [place], [address] Monocytes/100 WBC (Bld) 7.6 % Normal 0-10 [facility] Comment on above: Performed By: #### L 500.4050, L506.1001, L503.0106, L100.0100, L501.9520 ####[facility] [address] [place], [address] Neutrophils/100 WBC (Bld) 67.3 % Normal 47-70 [facility] Comment on above: Performed By: #### L 500.4050, L506.1001, L503.0106, L100.0100, L501.9520 ####[facility] [address] [place], [address] Nucleated RBC (Bld) [#/Vol] 0 10*3/uL Normal 0-5 [facility] Comment on above: Performed By: #### L 500.4050, L506.1001, L503.0106, L100.0100, L501.9520 ####[facility] [address] [place], [address] Platelet mean volume (Bld) [Entitic vol] 9.7 fL Normal 6.2-12.0 [facility] Comment on above: Performed By: #### L 500.4050, L506.1001, L503.0106, L100.0100, L501.9520 ####[facility] [address] [place], [address] Platelets (Bld) [#/Vol] 352 10*3/uL Normal 150-450 [facility] Comment on above: Performed By: #### L 500.4050, L506.1001, L503.0106, L100.0100, L501.9520 ####[facility] [address] [place], [address] RBC (Bld) [#/Vol] 4.48 10*6/uL Normal 4.2-5.4 [facility] Comment on above: Performed By: #### L 500.4050, L506.1001, L503.0106, L100.0100, L501.9520 ####[facility] [address] [place], [address] RDW SD 46.4 fl High 35.1-43.9 [facility] Comment on above: Performed By: #### L 500.4050, L506.1001, L503.0106, L100.0100, L501.9520 ####[facility] [address] [place], [address] WBC (Bld) [#/Vol] 7.5 10*3/uL Normal 4.4-11.[address] [facility] Comment on above: Performed By: #### L 500.4050, L506.1001, L503.0106, L100.0100, L501.9520 ####[facility] [address] [place], [address] Carbon dioxide, total [Moles /volume] in Central venous bloodOrdered By: Karuna Lim on 11-20-2024 CO2 [Moles/Vol] 22.8 mmol/L 21.0-32.0 [facility] Chloride assayOrdered By: Vazquez Lim on 11-20-2024 Chloride [Moles/Vol] 104 mmol/L 98-108 [facility] Comprehensive Metabolic Prof ilon 11-20-2024 Albumin [Mass/Vol] 3.8 g/dL Normal 3.5-5.[address] [facility] Comment on above: Performed By: #### L 500.4050, L506.1001, L503.0106, L100.0100, L501.9520 ####[facility] [address] [place], [address] Albumin/Globulin [Mass ratio] 1.2 {ratio} Normal 0.9-2.4 [facility] Comment on above: Performed By: #### L 500.4050, L506.1001, L503.0106, L100.0100, L501.9520 ####[facility] [address] [place], [address] ALK PHOS 56 U/L Normal 35-104 [facility] Comment on above: Performed By: #### L 500.4050, L506.1001, L503.0106, L100.0100, L501.9520 ####[facility] [id number] [place], [address] ALT [Catalytic activity/Vol] 19 U/L Normal <=34 [facility] Comment on above: Performed By: #### L 500.4050, L506.1001, L503.0106, L100.0100, L501.9520 ####[facility] [address] [place], [address] AST [Catalytic activity/Vol] 17 U/L Normal <=31 [facility] Comment on above: Result Comment: Hemo lysis present, Results??could be affected.?? Performed By: #### L 500.4050, L506.1001, L503.0106, L100.0100, L501.9520 ####[facility] [address] [place], [address] Bilirubin [Mass/Vol] 0.39 mg/dL Normal 0.00-1.30 [facility] Comment on above: Performed By: #### L 500.4050, L506.1001, L503.0106, L100.0100, L501.9520 ####[facility] [address] [place], [address] BUN/CRE 19.2 RATIO Normal 10-20 [facility] Comment on above: Performed By: #### L 500.4050, L506.1001, L503.0106, L100.0100, L501.9520 ####[facility] [address] [place], [address] Calcium [Mass/Vol] 9.4 mg/dL Normal 7.6-11.[address] [facility] Comment on above: Performed By: #### L 500.4050, L506.1001, L503.0106, L100.0100, L501.9520 ####[facility] [address] [place], [address] Chloride [Moles/Vol] 104 mmol/L Normal 98-108 [facility] Comment on above: Performed By: #### L 500.4050, L506.1001, L503.0106, L100.0100, L501.9520 ####[facility] [address] [place], [address] CO2 [Moles/Vol] 22.8 mmol/L Normal 21.0-32.0 [facility] Comment on above: Performed By: #### L 500.4050, L506.1001, L503.0106, L100.0100, L501.9520 ####[facility] [address] [place], [address] Creatinine [Mass/Vol] 0.62 mg/dL Low 0.70-1.20 [facility] Comment on above: Performed By: #### L 500.4050, L506.1001, L503.0106, L100.0100, L501.9520 ####[facility] [address] [place], [address] GAP 11 Normal 5-15 [facility] Comment on above: Performed By: #### L 500.4050, L506.1001, L503.0106, L100.0100, L501.9520 ####[facility] [address] [place], [address] GFR/1.73 sq M.predicted among non-blacks MDRD (S/P/Bld) [Vol rate/Area] 124 mL/min/{1.73_m2} Normal >60 [facility] Comment on above: Result Comment: mL/m in/1.73m2 CKD-EPI Creatinine Equation (2020) Performed By: #### L 500.4050, L506.1001, L503.0106, L100.0100, L501.9520 ####[facility] [address] [place], [address] Globulin (S) [Mass/Vol] 3.1 g/dL Normal 2.2-4.2 [facility] Comment on above: Performed By: #### L 500.4050, L506.1001, L503.0106, L100.0100, L501.9520 ####[facility] [address] [place], [address] Glucose [Mass/Vol] 113 mg/dL High 70-[address] [facility] Comment on above: Performed By: #### L 500.4050, L506.1001, L503.0106, L100.0100, L501.9520 ####[facility] [address] [place], [address] Potassium [Moles/Vol] 4.6 mmol/L Normal 3.3-5.1 [facility] Comment on above: Result Comment: Hemo lysis present, Results??could be affected.?? Performed By: #### L 500.4050, L506.1001, L503.0106, L100.0100, L501.9520 ####[facility] [address] [place], [address] Sodium [Moles/Vol] 138 mmol/L Normal 133-[address] [facility] Comment on above: Performed By: #### L 500.4050, L506.1001, L503.0106, L100.0100, L501.9520 ####[facility] [address] [place], [address] T PROT 6.9 g/dL Normal 5.9-8.4 [facility] Comment on above: Performed By: #### L 500.4050, L506.1001, L503.0106, L100.0100, L501.9520 ####[facility] [address] [place], [place], [address] Urea nitrogen [Mass/Vol] 12 mg/dL Normal 4-19 [facility] Comment on above: Performed By: #### L 500.4050, L506.1001, L503.0106, L100.0100, L501.9520 ####[facility] [address] [place], [place], [id number] Eosinophil percentageOrdered By: Zebulun Beam on 11-20-2024 Eosinophils/100 WBC (Bld) 1.2 % 0-5 [facility] Erythrocyte distribution wid th ratioOrdered By: Zebulun Beam on 11-20-2024 Erythrocyte distribution width (RBC) [Ratio] 14.6 % 11.6-14.6 [facility] Erythrocyte distribution wid th standard deviationOrdered By: Zebulun Beam on 11-20-2024 Erythrocyte distribution width (RBC) [Ratio] 46.4 fl High 35.1-43.9 [facility] Glomerular filtration rate ( GFR) estimation/1.73 sq m using serum, plasma, or whole bOrdered By: bulun Beam on 11-20-2024 GFR/1.73 sq M.predicted among non-blacks MDRD (S/P/Bld) [Vol rate/Area] 124 mL/min/{1.73_m2} >60 [facility] Hematocrit Auto (Bld) [Volum e fraction]Ordered By: [facility] on 11-20-2024 Hematocrit (Bld) [Volume fraction] 38.8 % 37-47 [facility] Hemoglobin measurementOrdere d By: Zebulun Beam on 11-20-2024 Hemoglobin (Bld) [Mass/Vol] 12.3 g/dL 12.0-15.0 [facility] Immature granulocytes/100 WB C Auto (Bld)Ordered By: Zebulun Beam on 11-20-2024 Immature granulocytes/100 WBC (Bld) 0.300 % 0.0-0.9 [facility] MCV (mean corpuscular volume ) determinationOrdered By: Vazquezbulun Beam on 11-20-2024 MCV (RBC) [Entitic vol] 86.6 fL 81-99 [facility] Mean corpuscular hemoglobin (MCH) determinationOrdered By: Karuna Lim on 11-20-2024 MCH (RBC) [Entitic mass] 27.5 pg 27.0-32.0 [facility] Monocyte percentageOrdered B y: Karuna Lim on 11-20-2024 Monocytes/100 WBC (Bld) 7.6 % 0-10 [facility] Neutrophil percentageOrdered By: Karuna Lim on 11-20-2024 Neutrophils/100 WBC (Bld) 67.3 % 47-70 [facility] No Panel InformationOrdered By: Karuna Lim on 11-20-2024 17 U/L <32 [facility] Platelet countOrdered By: Vazquez Lim on 11-20-2024 Platelets (Bld) [#/Vol] 352 10*3/uL 150-450 [facility] Potassium measurement (mass/ volume)Ordered By: Karuna Lim on 11-20-2024 Potassium (Unsp spec) [Mass/Vol] 4.6 mmol/L 3.3-5.1 [facility] RBC Auto (Bld) [#/Vol]Ordere d By: Karuna Lim on 11-20-2024 RBC (Bld) [#/Vol] 4.48 10*6/uL 4.2-5.4 [facility] Serum creatinine measurement (mass/volume)Ordered By: Karuna Lim on 11-20-2024 Creatinine [Mass/Vol] 0.62 mg/dL Low 0.70-1.20 [facility] Serum globulin measurementOr dered By: Karuna Lim on 11-20-2024 Globulin (S) [Mass/Vol] 3.1 g/dL 2.2-4.2 [facility] Serum glucose measurement (m ass/volume)Ordered By: Karuna Lim on 11-20-2024 Glucose [Mass/Vol] 113 mg/dL High 70-[address] [facility] Serum or plasma alanine godinez otransferase (ALT) measurementOrdered By: Karuna Lim on 11-20-2024 ALT [Catalytic activity/Vol] 19 U/L <35 [facility] Serum or plasma albumin cherelle urement (mass/volume)Ordered By: Jakin Beam on 11-20-2024 Albumin [Mass/Vol] 3.8 g/dL 3.5-5.[address] [facility] Serum or plasma albumin/glob ulin mass ratioOrdered By: [facility] on 11-20-2024 Albumin/Globulin [Mass ratio] 1.2 {ratio} 0.9-2.4 [facility] Serum or plasma alkaline rohit sphatase measurementOrdered By: shayna Beam on 11-20-2024 ALP [Catalytic activity/Vol] 56 U/L 35-104 [facility] Serum or plasma calcium cherelle urement (mass/volume)Ordered By: Paytonluadalgisa Beam on 11-20-2024 Calcium [Mass/Vol] 9.4 mg/dL 7.6-11.[address] [facility] Serum or plasma urea nitroge n measurement (mass/volume)Ordered By: Karuna Beam on 11-20-2024 Urea nitrogen [Mass/Vol] 12 mg/dL 4-19 [facility] Sodium levelOrdered By: Payton boyd Beam on 11-20-2024 Sodium [Moles/Vol] 138 mmol/L 133-[address] [facility] TSH DL <= 0.005 mIU/L QnOrde red By: Karuna Beam on 11-20-2024 TSH Qn 2.510 uIU/mL 0.300-4.200 [facility] Thyroid Stim Hormone (TSH)on 11-20-2024 TSH 2.510 uIU/mL Normal 0.300-4.200 [facility] Comment on above: Performed By: #### L 500.4050, L506.1001, L503.0106, L100.0100, L501.9520 ####[facility] [address] [place], [place], [id number] Total proteinOrdered By: Juventino Lim on 11-20-2024 Protein [Mass/Vol] 6.9 g/dL 5.9-8.[address] [facility] Vitamin B12on 11-20-2024 Cobalamin (Vitamin B12) [Mass/Vol] 745 pg/mL Normal 180-914 [facility] Comment on above: Performed By: #### L 500.4050, L506.1001, L503.0106, L100.0100, L501.9520 ####[facility] [address] [place], [place], [address] Vitamin B12 ser/plasOrdered By: Karuna Lim on 11-20-2024 Cobalamin (Vitamin B12) [Mass/Vol] 745 pg/mL 180-914 [facility] Vitamin D,25 Hydroxyon 11-20 Vitamin D 25-OH 26.8 ng/mL Low 30-100 [facility] Comment on above: Result Comment: Joanne min D StatusDeficiency: <20 ng/mL (50nmol/L)Insufficiency: 20-30 ng/mL (50-75 nmol/L)Sufficiency: 30-100 ng/mL (75-250 nmol/L)Toxicity: >100 ng/mL (>250 nmol/L) Performed By: #### L 500.4050, L506.1001, L503.0106, L100.0100, L501.9520 ####[facility] [address] [place], [place], [id number] White blood cell (WBC) count Ordered By: Karuna Lim on 11-20-2024 WBC (Bld) [#/Vol] 7.5 10*3/uL 4.4-11.[address] [facility] Absolute lymphocyte countOrd ered By: Mau Smallwood on 11-18-2024 Lymphocytes Auto (Unsp spec) [#/Vol] 2.07 10*3/uL 0.83-4.51 [facility] Anion gap in Serum or Plasma Ordered By: Mau Smallwood on 11-18-2024 Anion gap [Moles/Vol] 13 mmol/L 5-15 [facility] Automated lymphocyte count a s percentage of total leukocytesOrdered By: Mau Smallwood on 11-18-2024 Lymphocytes/100 WBC Auto (Unsp spec) 20.8 % 19-41 [facility] BUN/creatinine ratioOrdered By: Mau Smallwood on 11-18-2024 Urea nitrogen/Creatinine [Mass ratio] 17.3 mg/mg 10-20 [facility] Basophil percentageOrdered B y: Mau Smallwood on 11-18-2024 Basophils/100 WBC (Bld) 0.5 % 0-1 [facility] Bedside Glucoseon 11-18-2024 FINGERSTICK GLU 88 mg/dL Normal 74-106 [facility] Comment on above: Result Comment: KENNY CASILLAS OF PATIENT CARE PER NURSING PROTOCOL Performed By: #### L 501.080 ####[facility] [address] [place], [address] Bilirubin, totalOrdered By: Mau Smallwood on 11-18-2024 Bilirubin [Mass/Vol] 0.38 mg/dL 0.00-1.30 [facility] CBC W/Diff, Automatedon 10-22 Absolute Lymph 2.07 X10 3/uL Normal 0.83-4.51 [facility] Comment on above: Performed By: #### L 500.4050, L100.0100 ####[facility] [address] [place], [address] Absolute Neut 7.1 X10 3/uL Normal 2.0-7.7 [facility] Comment on above: Performed By: #### L 500.4050, L100.0100 ####[facility] [address] [place], [address] Basophils/100 WBC (Bld) 0.5 % Normal 0-1 [facility] Comment on above: Performed By: #### L 500.4050, L100.0100 ####[facility] [address] [place], [address] Eosinophils/100 WBC (Bld) 1.0 % Normal 0-5 [facility] Comment on above: Performed By: #### L 500.4050, L100.0100 ####[facility] [address] [place], [address] Erythrocyte distribution width (RBC) [Ratio] 14.6 % Normal 11.6-14.6 [facility] Comment on above: Performed By: #### L 500.4050, L100.0100 ####[facility] [address] [place], [address] Hematocrit (Bld) [Volume fraction] 35.4 % Low 37-47 [facility] Comment on above: Performed By: #### L 500.4050, L100.0100 ####[facility] [address] [place], [address] Hemoglobin (Bld) [Mass/Vol] 11.7 g/dL Low 12.0-15.0 [facility] Comment on above: Performed By: #### L 500.4050, L100.0100 ####[facility] [address] [place], [address] IG% 0.300 Normal 0.0-0.9 [facility] Comment on above: Result Comment: IG% - Immature Granulocytes (promyelocytes, myelocytes andmetamyelocytes) > 1% indicates that a LEFT SHIFT is Present. Performed By: #### L 500.4050, L100.0100 ####[facility] [address] [place], [address] Lymphocytes/100 WBC (Bld) 20.8 % Normal 19-41 [facility] Comment on above: Performed By: #### L 500.4050, L100.0100 ####[facility] [address] [place], [address] MCH (RBC) [Entitic mass] 27.8 pg Normal 27.0-32.0 [facility] Comment on above: Performed By: #### L 500.4050, L100.0100 ####[facility] [address] [place], [address] MCHC (RBC) [Mass/Vol] 33.1 g/dL Normal 32-36 [facility] Comment on above: Performed By: #### L 500.4050, L100.0100 ####[facility] [address] [place], [address] MCV (RBC) [Entitic vol] 84.1 fL Normal 81-99 [facility] Comment on above: Performed By: #### L 500.4050, L100.0100 ####[facility] [address] [place], [address] Monocytes/100 WBC (Bld) 6.2 % Normal 0-10 [facility] Comment on above: Performed By: #### L 500.4050, L100.0100 ####[facility] [address] [place], [address] Neutrophils/100 WBC (Bld) 71.2 % High 47-70 [facility] Comment on above: Performed By: #### L 500.4050, L100.0100 ####[facility] [address] [place], [address] Nucleated RBC (Bld) [#/Vol] 0 10*3/uL Normal 0-5 [facility] Comment on above: Performed By: #### L 500.4050, L100.0100 ####[facility] [address] [place], [address] Platelet mean volume (Bld) [Entitic vol] 9.2 fL Normal 6.2-12.0 [facility] Comment on above: Performed By: #### L 500.4050, L100.0100 ####[facility] [address] [place], [address] Platelets (Bld) [#/Vol] 323 10*3/uL Normal 150-450 [facility] Comment on above: Performed By: #### L 500.4050, L100.0100 ####[facility] [address] [place], [address] RBC (Bld) [#/Vol] 4.21 10*6/uL Normal 4.2-5.4 [facility] Comment on above: Performed By: #### L 500.4050, L100.0100 ####[facility] [address] [place], [address] RDW SD 44.9 fl High 35.1-43.9 [facility] Comment on above: Performed By: #### L 500.4050, L100.0100 ####[facility] [address] [place], [address] WBC (Bld) [#/Vol] 10.0 10*3/uL Normal 4.4-11.0 [facility] Comment on above: Performed By: #### L 500.4050, L100.0100 ####[facility] [address] [place], [address] Carbon dioxide, total [Moles /volume] in Central venous bloodOrdered By: Mau Smallwood on 11-18-2024 CO2 [Moles/Vol] 19.0 mmol/L Low 21.0-32.0 [facility] Chloride assayOrdered By: Ug o Smallwood on 11-18-2024 Chloride [Moles/Vol] 102 mmol/L 98-108 [facility] Comprehensive Metabolic Prof ilon 11-18-2024 Albumin [Mass/Vol] 3.4 g/dL Low 3.5-5.[address] [facility] Comment on above: Performed By: #### L 500.4050, L100.0100 ####[facility] [address] [place], [address] Albumin/Globulin [Mass ratio] 1.1 {ratio} Normal 0.9-2.4 [facility] Comment on above: Performed By: #### L 500.4050, L100.0100 ####[facility] [address] [place], [address] ALK PHOS 51 U/L Normal 35-104 [facility] Comment on above: Performed By: #### L 500.4050, L100.0100 ####[facility] [address] [place], [address] ALT [Catalytic activity/Vol] 17 U/L Normal <=34 [facility] Comment on above: Performed By: #### L 500.4050, L100.0100 ####[facility] [address] [place], [address] AST [Catalytic activity/Vol] 19 U/L Normal <=31 [facility] Comment on above: Result Comment: Hemo lysis present, Results??could be affected.?? Performed By: #### L 500.4050, L100.0100 ####[facility] [address] [place], [address] Bilirubin [Mass/Vol] 0.38 mg/dL Normal 0.00-1.30 [facility] Comment on above: Performed By: #### L 500.4050, L100.0100 ####[facility] [address] [place], [address] BUN/CRE 17.3 RATIO Normal 10-20 [facility] Comment on above: Performed By: #### L 500.4050, L100.0100 ####[facility] [address] [place], [address] Calcium [Mass/Vol] 9.0 mg/dL Normal 7.6-11.[address] [facility] Comment on above: Performed By: #### L 500.4050, L100.0100 ####[facility] [address] [place], [address] Chloride [Moles/Vol] 102 mmol/L Normal 98-108 [facility] Comment on above: Performed By: #### L 500.4050, L100.0100 ####[facility] [address] [place], [address] CO2 [Moles/Vol] 19.0 mmol/L Low 21.0-32.0 [facility] Comment on above: Performed By: #### L 500.4050, L100.0100 ####[facility] [address] [place], [address] Creatinine [Mass/Vol] 0.64 mg/dL Low 0.70-1.20 [facility] Comment on above: Performed By: #### L 500.4050, L100.0100 ####[facility] [address] [place], [address] ECRCL 185.40 ml/min Normal 50-250 [facility] Comment on above: Performed By: #### L 500.4050, L100.0100 ####[facility] [address] [place], [address] GAP 13 Normal 5-15 [facility] Comment on above: Performed By: #### L 500.4050, L100.0100 ####[facility] [address] [place], [address] GFR/1.73 sq M.predicted among non-blacks MDRD (S/P/Bld) [Vol rate/Area] 124 mL/min/{1.73_m2} Normal >60 [facility] Comment on above: Result Comment: mL/m in/1.73m2 CKD-EPI Creatinine Equation (2020) Performed By: #### L 500.4050, L100.0100 ####[facility] [address] [place], [address] Globulin (S) [Mass/Vol] 3.1 g/dL Normal 2.2-4.2 [facility] Comment on above: Performed By: #### L 500.4050, L100.0100 ####[facility] [address] [place], [address] Glucose [Mass/Vol] 255 mg/dL High 70-[address] [facility] Comment on above: Performed By: #### L 500.4050, L100.0100 ####[facility] [address] [place], [address] Potassium [Moles/Vol] 4.2 mmol/L Normal 3.3-5.1 [facility] Comment on above: Result Comment: Hemo lysis present, Results??could be affected.?? Performed By: #### L 500.4050, L100.0100 ####[facility] [address] [place], [address] Sodium [Moles/Vol] 134 mmol/L Normal 133-[address] [facility] Comment on above: Performed By: #### L 500.4050, L100.0100 ####[facility] [address] [place], [address] T PROT 6.5 g/dL Normal 5.9-8.4 [facility] Comment on above: Performed By: #### L 500.4050, L100.0100 ####[facility] [address] [place], [address] Urea nitrogen [Mass/Vol] 11 mg/dL Normal 4-19 [facility] Comment on above: Performed By: #### L 500.4050, L100.0100 ####[facility] [address] [place], [address] Emergency Department Summary on 11-18-2024 Emergency Department Summary Normal [facility] Eosinophil percentageOrdered By: Mau Smallwood on 11-18-2024 Eosinophils/100 WBC (Bld) 1.0 % 0-5 [facility] Erythrocyte distribution wid th ratioOrdered By: Mau Smallwood on 11-18-2024 Erythrocyte distribution width (RBC) [Ratio] 14.6 % 11.6-14.6 [facility] Erythrocyte distribution wid th standard deviationOrdered By: Mau Smallwood on 11-18-2024 Erythrocyte distribution width (RBC) [Ratio] 44.9 fl High 35.1-43.9 [facility] Glomerular filtration rate ( GFR) estimation/1.73 sq m using serum, plasma, or whole bOrdered By: Mau Smallwood on 11-18-2024 GFR/1.73 sq M.predicted among non-blacks MDRD (S/P/Bld) [Vol rate/Area] 124 mL/min/{1.73_m2} >60 [facility] Gl[facility] at [facility] deOrdered By: Mautwin Smallwood on 11-18-2024 Glucose [Mass/Vol] 88 mg/dL 74-[address] [facility] Hematocrit Auto (Bld) [Volum e fraction]Ordered By: Mautwin Smallwood on 11-18-2024 Hematocrit (Bld) [Volume fraction] 35.4 % Low 37-47 [facility] Hemoglobin measurementOrdere d By: Mautwin Smallwood on 11-18-2024 Hemoglobin (Bld) [Mass/Vol] 11.7 g/dL Low 12.0-15.0 [facility] Immature granulocytes/100 WB C Auto (Bld)Ordered By: Mautwin Smallwood on 11-18-2024 Immature granulocytes/100 WBC (Bld) 0.300 % 0.0-0.9 [facility] Lithiumon 11-18-2024 LI 0.71 mmol/L Normal 0.60-1.20 [facility] Comment on above: Performed By: #### L 501.9060 ####[facility] [address] [place], [address] MCV (mean corpuscular volume ) determinationOrdered By: Mautwin Smallwood on 11-18-2024 MCV (RBC) [Entitic vol] 84.1 fL 81-99 [facility] Mean corpuscular hemoglobin (MCH) determinationOrdered By: Mautwin Smallwood on 11-18-2024 MCH (RBC) [Entitic mass] 27.8 pg 27.0-32.0 [facility] Monocyte percentageOrdered B y: Mau Smallwood on 11-18-2024 Monocytes/100 WBC (Bld) 6.2 % 0-10 [facility] Neutrophil percentageOrdered By: Mautwin Smallwood on 11-18-2024 Neutrophils/100 WBC (Bld) 71.2 % High 47-70 [facility] No Panel InformationOrdered By: Mau Smallwood on 11-18-2024 19 U/L <32 [facility] Platelet countOrdered By: Medardo Smallwood on 11-18-2024 Platelets (Bld) [#/Vol] 323 10*3/uL 150-450 [facility] Potassium measurement (mass/ volume)Ordered By: Mautwin Smallwood on 11-18-2024 Potassium (Unsp spec) [Mass/Vol] 4.2 mmol/L 3.3-5.1 [facility] RBC Auto (Bld) [#/Vol]Ordere d By: Mau Smallwood on 11-18-2024 RBC (Bld) [#/Vol] 4.21 10*6/uL 4.2-5.4 [facility] Serum creatinine measurement (mass/volume)Ordered By: Mau Smallwood on 11-18-2024 Creatinine [Mass/Vol] 0.64 mg/dL Low 0.70-1.20 [facility] Serum globulin measurementOr dered By: Mau Smallwood on 11-18-2024 Globulin (S) [Mass/Vol] 3.1 g/dL 2.2-4.2 [facility] Serum glucose measurement (m ass/volume)Ordered By: Mau Smallwood on 11-18-2024 Glucose [Mass/Vol] 255 mg/dL High 70-[address] [facility] Serum or plasma alanine godinez otransferase (ALT) measurementOrdered By: Mautwin Smallwood on 11-18-2024 ALT [Catalytic activity/Vol] 17 U/L <35 [facility] Serum or plasma albumin cherelle urement (mass/volume)Ordered By: Mau Smallwood on 11-18-2024 Albumin [Mass/Vol] 3.4 g/dL Low 3.5-5.[address] [facility] Serum or plasma albumin/glob ulin mass ratioOrdered By: Mautwin Smallwood on 09-30-2025 Albumin/Globulin [Mass ratio] 1.1 {ratio} 0.9-2.4 [facility] Serum or plasma alkaline rohit sphatase measurementOrdered By: [facility] on 11-18-2024 ALP [Catalytic activity/Vol] 51 U/L 35-104 [facility] Serum or plasma calcium cherelle urement (mass/volume)Ordered By: [facility] on 11-18-2024 Calcium [Mass/Vol] 9.0 mg/dL 7.6-11.[address] [facility] Serum or plasma urea nitroge n measurement (mass/volume)Ordered By: [facility] on 11-18-2024 Urea nitrogen [Mass/Vol] 11 mg/dL 4-19 [facility] Sodium levelOrdered By: [facility] on 11-18-2024 Sodium [Moles/Vol] 134 mmol/L 133-[address] [facility] Total proteinOrdered By: [facility] on 11-18-2024 Protein [Mass/Vol] 6.5 g/dL 5.9-8.[address] [facility] White blood cell (WBC) count Ordered By: [facility] on 11-18-2024 WBC (Bld) [#/Vol] 10.0 10*3/uL 4.4-11.0 [facility] Bacteria Ur Culton Bacteria identified Cx Nom (U) ORGANISM ID: 1 10,000 -<50,000 CFU/ml Mixed microbiota No further workup. Mixed microbiota can be due to???urine???contaminati on with skin bacteria at time of collection or presence of a long-term urinary catheter. If a new culture is needed, please consider re-education of the patient on proper midstream collection technique or straight catheterization for???urine???collection . Normal [facility] Comment on above: Performed By: #### 6 30-4 ####[facility] LABCLIA [id number] [place] [address] [place] URINALYSIS, DIPSTICK ONLYon 11-17-2024 Bilirubin Ql (U) Negative Normal Negative [facility] Comment on above: Order Comment: Speci men Type: URINE SPECIMENOrdering Facility: [facility] Address: [address] [place] [address], [place] [address] Performed By: #### U A ####[facility] LABCLIA [id number] [address] [place] [address] [place] Clarity (Unsp spec) Clear Normal Clear [facility] Comment on above: Order Comment: Speci men Type: URINE SPECIMENOrdering Facility: [facility] Address: [address] [place] [address], [place] [address] Performed By: #### U A ####[facility] LABCLIA [id number] [address] [place] [address] [place] Color (U) Yellow Normal Yellow [facility] Comment on above: Order Comment: Speci men Type: URINE SPECIMENOrdering Facility: [facility] Address: [address] [place] [address] Performed By: #### U A ####[facility] LABCLIA [id number] [address] [place] [address] [place] Glucose Test strip (U) [Mass/Vol] Negative Normal Negative [facility] Comment on above: Order Comment: Speci men Type: URINE SPECIMENOrdering Facility: [facility] Address: [address] [place] [address], [place] [address] Performed By: #### U A ####[facility] LABCLIA [id number] [address] [place] [address] [place] Hemoglobin Ql (U) Negative Normal Negative [facility] Comment on above: Order Comment: Speci men Type: URINE SPECIMENOrdering Facility: [facility] Address: [address] [place] [address] Performed By: #### U A ####[facility] LABCLIA [id number] [address] [place] [address] [place] Ketones Ql (U) Negative Normal Negative [facility] Comment on above: Order Comment: Speci men Type: URINE SPECIMENOrdering Facility: [facility] Address: [address] [place] [address] Performed By: #### U A ####[facility] LABCLIA [id number] [place] [address] [place] Leukocyte esterase Test strip Ql (U) 1+ Abnormal Negative [facility] Comment on above: Order Comment: Speci men Type: URINE SPECIMENOrdering Facility: [facility] Address: [address] [place] [address] Performed By: #### U A ####[facility] LABCLIA [id number] [place] [address] [place] Nitrite Ql (U) Negative Normal Negative [facility] Comment on above: Order Comment: Speci men Type: URINE SPECIMENOrdering Facility: [facility] Address: [address] [place] [address] Performed By: #### U A ####[facility] LABCLIA [id number] [place] [address] [place] pH (U) 6.5 [pH] Normal 5.0-8.0 [facility] Comment on above: Order Comment: Speci men Type: URINE SPECIMENOrdering Facility: [facility] Address: [address] [place] [address] Performed By: #### U A ####[facility] LABCLIA [id number] [place] [id number] [place] Protein (U) [Mass/Vol] Negative Normal Negative [facility] Comment on above: Order Comment: Speci men Type: URINE SPECIMENOrdering Facility: [facility] Address: [address] [place] [address] Performed By: #### U A ####[facility] LABCLIA [id number] [place] [id number] [place] Specific gravity (U) [Rel density] 1.015 Normal 1.005-1.030 [facility] Comment on above: Order Comment: Speci men Type: URINE SPECIMENOrdering Facility: [facility] Address: [address], [place] [address] Performed By: #### U A ####[facility] LABCLIA [id number] [address] [address] [place] Urobilinogen Ql (U) 0.2 EU/dL Normal 0.2-1.0 EU/dL [facility] Comment on above: Order Comment: Speci men Type: URINE SPECIMENOrdering Facility: [facility] Address: [address], [place] [address] Performed By: #### U A ####[facility] LABIA [id number] [place] [id number] [place] Anion gap in Serum or Plasma Ordered By: Shawanda Ramires on 11-14-2024 Anion gap [Moles/Vol] 11 mmol/L 07-03 [facility] BUN/creatinine ratioOrdered By: Shawanda Ramires on 11-14-2024 Urea nitrogen/Creatinine [Mass ratio] 15.5 mg/mg 12-08 [facility] Basic Metabolic Profile (BMP )on 11-14-2024 BUN/CRE 15.5 RATIO Normal 12-08 [facility] Comment on above: Performed By: #### L 500.2500 ####[facility] [address] [place], [address] Calcium [Mass/Vol] 9.2 mg/dL Normal 7.6-11.[address] [facility] Comment on above: Performed By: #### L 500.2500 ####[facility] [address] [place], [address] Chloride [Moles/Vol] 106 mmol/L Normal 98-108 [facility] Comment on above: Performed By: #### L 500.2500 ####[facility] [address] [place], [address] CO2 [Moles/Vol] 21.7 mmol/L Normal 21.0-32.0 [facility] Comment on above: Performed By: #### L 500.2500 ####[facility] [address] [place], [address] Creatinine [Mass/Vol] 0.74 mg/dL Normal 0.70-1.20 [facility] Comment on above: Performed By: #### L 500.2500 ####[facility] [address] [place], [address] GAP 11 Normal 5-15 [facility] Comment on above: Performed By: #### L 500.2500 ####[facility] [address] [place], [address] GFR/1.73 sq M.predicted among non-blacks MDRD (S/P/Bld) [Vol rate/Area] 113 mL/min/{1.73_m2} Normal >60 [facility] Comment on above: Result Comment: mL/m in/1.73m2 CKD-EPI Creatinine Equation (2020) Performed By: #### L 500.2500 ####[facility] [address] [place], [address] Glucose [Mass/Vol] 89 mg/dL Normal 70-[address] [facility] Comment on above: Performed By: #### L 500.2500 ####[facility] [address] [place], [address] Potassium [Moles/Vol] 4.4 mmol/L Normal 3.3-5.1 [facility] Comment on above: Performed By: #### L 500.2500 ####[facility] [address] [place], [address] Sodium [Moles/Vol] 138 mmol/L Normal 133-[address] [facility] Comment on above: Performed By: #### L 500.2500 ####[facility] [address] [place], [place], [address] Urea nitrogen [Mass/Vol] 12 mg/dL Normal - [facility] Comment on above: Performed By: #### L 500.2500 ####[facility] [address] [place], [place], [address] Carbon dioxide, total [Moles /volume] in Central venous bloodOrdered By: Shawanda Ramires on 11-14-2024 CO2 [Moles/Vol] 21.7 mmol/L 21.0-32.0 [facility] Chloride assayOrdered By: Kirk Ramires on 11-14-2024 Chloride [Moles/Vol] 106 mmol/L 98-108 [facility] Glomerular filtration rate ( GFR) estimation/1.73 sq m using serum, plasma, or whole bOrdered By: Shawanda Ramires on 11-14-2024 GFR/1.73 sq M.predicted among non-blacks MDRD (S/P/Bld) [Vol rate/Area] 113 mL/min/{1.73_m2} >60 [facility] Potassium measurement (mass/ volume)Ordered By: Shawanda Ramires on 11-14-2024 Potassium (Unsp spec) [Mass/Vol] 4.4 mmol/L 3.3-5.1 [facility] Serum creatinine measurement (mass/volume)Ordered By: Shawanda Ramires on 11-14-2024 Creatinine [Mass/Vol] 0.74 mg/dL 0.70-1.20 [facility] Serum glucose measurement (m ass/volume)Ordered By: Shawanda Ramires on 11-14-2024 Glucose [Mass/Vol] 89 mg/dL 70-[address] [facility] Serum or plasma calcium cherelle urement (mass/volume)Ordered By: Shawanda Ramires on 11-14-2024 Calcium [Mass/Vol] 9.2 mg/dL 7.6-11.[address] [facility] Serum or plasma urea nitroge n measurement (mass/volume)Ordered By: Shawanda Ramires on 11-14-2024 Urea nitrogen [Mass/Vol] 12 mg/dL -19 [facility] Sodium levelOrdered By: Danielle Ramires on 11-14-2024 Sodium [Moles/Vol] 138 mmol/L 133-[address] [facility] Tilt Tableon 11-06-2024 Tilt Table Normal [facility] Bedside Glucoseon 10-28-2024 FINGERSTICK GLU 105 mg/dL Normal 74-106 [facility] Comment on above: Result Comment: KENNY CASILLAS OF PATIENT CARE PER NURSING PROTOCOL Performed By: #### L 501.080 ####[facility] [address] [place], [place], [address] ,Urineon 10-28-2024 Beta HCG ( test) Ql (U) Negative Normal [facility] Comment on above: Result Comment: Very dilute urine specimens, as indicated by a low specificgravity, may not contain motor vehicle representative levels of hCG.If is still suspected, a first morning urinespecimen should be collected 48 hours later and tested. Performed By: #### L 400.7600 ####[facility] [address] [place], [place], [id number] Urine testOrdered By: Yessica Guthrie on 10-28-2024 HCG ( test) Ql (U) Negative [facility] Colonoscopy Reporton 025 Colonoscopy Report Normal [facility] deOrdered By: Andreas Oliva on 10-27-2024 Glucose [Mass/Vol] 105 mg/dL 74-[address] [facility] MR/OP.PROVATon 10-27-2024 MR/OP.PROVAT Normal [facility] MR/POSTOP.ANEon 10-27-2024 MR/POSTOP.ANE Normal [facility] MR/ABCQPOOR8nx 10-27-2024 MR/POSTOPAN2 Normal [facility] ,Urineon 10-27-2024 Beta HCG ( test) Ql (U) Negative Normal [facility] Comment on above: Result Comment: Very dilute urine specimens, as indicated by a low specificgravity, may not contain motor vehicle representative levels of hCG.If is still suspected, a first morning urinespecimen should be collected 48 hours later and tested. Performed By: #### L 400.7600 ####[facility] [address] [place], [place], [address] Surgery Specimen Level Kev 10-27-2024 Surgery Specimen Level IV Normal [facility] Comment on above: Performed By: #### P SUIV ####[facility] [address] [place], [place], [id number] Urine testOrdered By: Mani Lozada on 10-27-2024 HCG ( test) Ql (U) Negative [facility] Comment on above: Very dilute urine sp ecimens, as indicated by a low specificgravity, may not contain motor vehicle representative levels of hCG. If is still suspected, a first morning urinespecimen should be collected 48 hours later and tested. Absolute lymphocyte countOrd ered By: Yessica Guthrie on 2024 Lymphocytes Auto (Unsp spec) [#/Vol] 2.48 10*3/uL 0.83-4.51 [facility] Anion gap in Serum or Plasma Ordered By: Yessica Guthrie on 2024 Anion gap [Moles/Vol] 13 mmol/L 5- [facility] Automated lymphocyte count a s percentage of total leukocytesOrdered By: Yessica Guthrie on 2024 Lymphocytes/100 WBC Auto (Unsp spec) 30.2 % - [facility] BUN/creatinine ratioOrdered By: Yessica Guthrie on 2024 Urea nitrogen/Creatinine [Mass ratio] 15.3 mg/mg - [facility] Basic Metabolic Profile (BMP )on 2024 BUN/CRE 15.3 RATIO Normal - [facility] Comment on above: Order Comment: For t ilt table test on 10/28/24 Performed By: #### L 500.2500, L100.0100, L700.6800 ####[facility] [address] [place], [place], [id number] Calcium [Mass/Vol] 9.6 mg/dL Normal 7.6-11.[address] [facility] Comment on above: Order Comment: For t ilt table test on 10/28/24 Performed By: #### L 500.2500, L100.0100, L700.6800 ####[facility] [address] [place], [address] Chloride [Moles/Vol] 106 mmol/L Normal 98-108 [facility] Comment on above: Order Comment: For t ilt table test on 10/28/24 Performed By: #### L 500.2500, L100.0100, L700.6800 ####[facility] [address] [place], [address] CO2 [Moles/Vol] 21.5 mmol/L Normal 21.0-32.0 [facility] Comment on above: Order Comment: For t ilt table test on 10/28/24 Performed By: #### L 500.2500, L100.0100, L700.6800 ####[facility] [address] [place], [address] Creatinine [Mass/Vol] 0.68 mg/dL Low 0.70-1.20 [facility] Comment on above: Order Comment: For t ilt table test on 10/28/24 Performed By: #### L 500.2500, L100.0100, L700.6800 ####[facility] [address] [place], [address] GAP 13 Normal 5-15 [facility] Comment on above: Order Comment: For t ilt table test on 10/28/24 Performed By: #### L 500.2500, L100.0100, L700.6800 ####[facility] [address] [place], [address] GFR/1.73 sq M.predicted among non-blacks MDRD (S/P/Bld) [Vol rate/Area] 122 mL/min/{1.73_m2} Normal >60 [facility] Comment on above: Order Comment: For t ilt table test on 10/28/24 Result Comment: mL/m in/1.73m2 CKD-EPI Creatinine Equation (2020) Performed By: #### L 500.2500, L100.0100, L700.6800 ####[facility] [address] [place], [address] Glucose [Mass/Vol] 83 mg/dL Normal 70-[address] [facility] Comment on above: Order Comment: For t ilt table test on 10/28/24 Performed By: #### L 500.2500, L100.0100, L700.6800 ####[facility] [address] [place], [address] Potassium [Moles/Vol] 3.6 mmol/L Normal 3.3-5.1 [facility] Comment on above: Order Comment: For t ilt table test on 10/28/24 Performed By: #### L 500.2500, L100.0100, L700.6800 ####[facility] [address] [place], [address] Sodium [Moles/Vol] 141 mmol/L Normal 133-[address] [facility] Comment on above: Order Comment: For t ilt table test on 10/28/24 Performed By: #### L 500.2500, L100.0100, L700.6800 ####[facility] [address] [place], [address] Urea nitrogen [Mass/Vol] 10 mg/dL Normal 4-19 [facility] Comment on above: Order Comment: For t ilt table test on 10/28/24 Performed By: #### L 500.2500, L100.0100, L700.6800 ####[facility] [address] [place], [address] Basophil percentageOrdered B y: Yessica Guthrie on 2024 Basophils/100 WBC (Bld) 0.5 % 0-1 [facility] CBC W/Diff, Automatedon Absolute Lymph 2.48 X10 3/uL Normal 0.83-4.51 [facility] Comment on above: Order Comment: Comme nts: For tilt table test on 10/28/24 Performed By: #### L 500.2500, L100.0100, L700.6800 ####[facility] [address] [place], [address] Absolute Neut 4.8 X10 3/uL Normal 2.0-7.7 [facility] Comment on above: Order Comment: Comme nts: For tilt table test on 10/28/24 Performed By: #### L 500.2500, L100.0100, L700.6800 ####[facility] [address] [place], [address] Basophils/100 WBC (Bld) 0.5 % Normal 0-1 [facility] Comment on above: Order Comment: Comme nts: For tilt table test on 10/28/24 Performed By: #### L 500.2500, L100.0100, L700.6800 ####[facility] [address] [place], [address] Eosinophils/100 WBC (Bld) 1.0 % Normal 0-5 [facility] Comment on above: Order Comment: Comme nts: For tilt table test on 10/28/24 Performed By: #### L 500.2500, L100.0100, L700.6800 ####[facility] [address] [place], [address] Erythrocyte distribution width (RBC) [Ratio] 14.5 % Normal 11.6-14.6 [facility] Comment on above: Order Comment: Comme nts: For tilt table test on 10/28/24 Performed By: #### L 500.2500, L100.0100, L700.6800 ####[facility] [address] [place], [address] Hematocrit (Bld) [Volume fraction] 38.0 % Normal 37-47 [facility] Comment on above: Order Comment: Comme nts: For tilt table test on 10/28/24 Performed By: #### L 500.2500, L100.0100, L700.6800 ####[facility] [address] [place], [address] Hemoglobin (Bld) [Mass/Vol] 12.6 g/dL Normal 12.0-15.0 [facility] Comment on above: Order Comment: Comme nts: For tilt table test on 10/28/24 Performed By: #### L 500.2500, L100.0100, L700.6800 ####[facility] [address] [place], [address] IG% 0.200 Normal 0.0-0.9 [facility] Comment on above: Order Comment: Comme nts: For tilt table test on 10/28/24 Result Comment: IG% - Immature Granulocytes (promyelocytes, myelocytes andmetamyelocytes) > 1% indicates that a LEFT SHIFT is Present. Performed By: #### L 500.2500, L100.0100, L700.6800 ####[facility] [address] [place], [address] Lymphocytes/100 WBC (Bld) 30.2 % Normal 19-41 [facility] Comment on above: Order Comment: Comme nts: For tilt table test on 10/28/24 Performed By: #### L 500.2500, L100.0100, L700.6800 ####[facility] [address] [place], [address] MCH (RBC) [Entitic mass] 27.5 pg Normal 27.0-32.0 [facility] Comment on above: Order Comment: Comme nts: For tilt table test on 10/28/24 Performed By: #### L 500.2500, L100.0100, L700.6800 ####[facility] [address] [place], [address] MCHC (RBC) [Mass/Vol] 33.2 g/dL Normal 32-36 [facility] Comment on above: Order Comment: Comme nts: For tilt table test on 10/28/24 Performed By: #### L 500.2500, L100.0100, L700.6800 ####[facility] [address] [place], [address] MCV (RBC) [Entitic vol] 83.0 fL Normal 81-99 [facility] Comment on above: Order Comment: Comme nts: For tilt table test on 10/28/24 Performed By: #### L 500.2500, L100.0100, L700.6800 ####[facility] [address] [place], [address] Monocytes/100 WBC (Bld) 9.7 % Normal 0-10 [facility] Comment on above: Order Comment: Comme nts: For tilt table test on 10/28/24 Performed By: #### L 500.2500, L100.0100, L700.6800 ####[facility] [address] [place], [address] Neutrophils/100 WBC (Bld) 58.4 % Normal 47-70 [facility] Comment on above: Order Comment: Comme nts: For tilt table test on 10/28/24 Performed By: #### L 500.2500, L100.0100, L700.6800 ####[facility] [address] [place], [address] Nucleated RBC (Bld) [#/Vol] 0 10*3/uL Normal 0-5 [facility] Comment on above: Order Comment: Comme nts: For tilt table test on 10/28/24 Performed By: #### L 500.2500, L100.0100, L700.6800 ####[facility] [address] [place], [address] Platelet mean volume (Bld) [Entitic vol] 9.4 fL Normal 6.2-12.0 [facility] Comment on above: Order Comment: Comme nts: For tilt table test on 10/28/24 Performed By: #### L 500.2500, L100.0100, L700.6800 ####[facility] [address] [place], [address] Platelets (Bld) [#/Vol] 367 10*3/uL Normal 150-450 [facility] Comment on above: Order Comment: Comme nts: For tilt table test on 10/28/24 Performed By: #### L 500.2500, L100.0100, L700.6800 ####[facility] [address] [place], [address] RBC (Bld) [#/Vol] 4.58 10*6/uL Normal 4.2-5.4 [facility] Comment on above: Order Comment: Comme nts: For tilt table test on 10/28/24 Performed By: #### L 500.2500, L100.0100, L700.6800 ####[facility] [address] [place], [address] RDW SD 43.9 fl Normal 35.1-43.9 [facility] Comment on above: Order Comment: Comme nts: For tilt table test on 10/28/24 Performed By: #### L 500.2500, L100.0100, L700.6800 ####[facility] [address] [place], [address] WBC (Bld) [#/Vol] 8.2 10*3/uL Normal 4.4-11.[address] [facility] Comment on above: Order Comment: Comme nts: For tilt table test on 10/28/24 Performed By: #### L 500.2500, L100.0100, L700.6800 ####[facility] [address] [place], [address] Carbon dioxide, total [Moles /volume] in Central venous bloodOrdered By: Yessica Guthrie on 2024 CO2 [Moles/Vol] 21.5 mmol/L 21.0-32.0 [facility] Chloride assayOrdered By: Yenny Guthrie on 2024 Chloride [Moles/Vol] 106 mmol/L 98-108 [facility] Eosinophil percentageOrdered By: Yessica Guthrie on 2024 Eosinophils/100 WBC (Bld) 1.0 % 0-5 [facility] Erythrocyte distribution wid th ratioOrdered By: Yessica Guthrie on 2024 Erythrocyte distribution width (RBC) [Ratio] 14.5 % 11.6-14.6 [facility] Erythrocyte distribution wid th standard deviationOrdered By: Yessica Guthrie on 2024 Erythrocyte distribution width (RBC) [Ratio] 43.9 fl 35.1-43.9 [facility] Glomerular filtration rate ( GFR) estimation/1.73 sq m using serum, plasma, or whole bOrdered By: Yessica Guthrie on 2024 GFR/1.73 sq M.predicted among non-blacks MDRD (S/P/Bld) [Vol rate/Area] 122 mL/min/{1.73_m2} >60 [facility] Hematocrit Auto (Bld) [Volum e fraction]Ordered By: Yessica Guthrie on 2024 Hematocrit (Bld) [Volume fraction] 38.0 % 37-47 [facility] Hemoglobin measurementOrdere d By: Yessica Guthrie on 2024 Hemoglobin (Bld) [Mass/Vol] 12.6 g/dL 12.0-15.0 [facility] Immature granulocytes/100 WB C Auto (Bld)Ordered By: Yessica Guthrie on 2024 Immature granulocytes/100 WBC (Bld) 0.200 % 0.0-0.9 [facility] MCV (mean corpuscular volume ) determinationOrdered By: Yessica Guthrie on 2024 MCV (RBC) [Entitic vol] 83.0 fL 81-99 [facility] MR/PAT.ANEon 2024 MR/PAT.ANE Normal [facility] MR/PAT.ANE Normal [facility] Mean corpuscular hemoglobin (MCH) determinationOrdered By: Yessica Guthrie on 2024 MCH (RBC) [Entitic mass] 27.5 pg 27.0-32.0 [facility] Monocyte percentageOrdered B y: Yessica Guthrie on 2024 Monocytes/100 WBC (Bld) 9.7 % 0-10 [facility] Neutrophil percentageOrdered By: Yessica Guhtrie on 2024 Neutrophils/100 WBC (Bld) 58.4 % 47-70 [facility] Platelet countOrdered By: Yenny Guthrie on 2024 Platelets (Bld) [#/Vol] 367 10*3/uL 150-450 [facility] Potassium measurement (mass/ volume)Ordered By: Yessica Guthrie on 2024 Potassium (Unsp spec) [Mass/Vol] 3.6 mmol/L 3.3-5.1 [facility] ,Serum,hCG Quali.on 2024 HCG, SERUM QUAL Negative Normal [facility] Comment on above: Order Comment: For t ilt table test on 10/28/24 Performed By: #### L 500.2500, L100.0100, L700.6800 ####[facility] [address] [facility] [place], [address] RBC Auto (Bld) [#/Vol]Ordere d By: Yessica Guthrie on 2024 RBC (Bld) [#/Vol] 4.58 10*6/uL 4.2-5.4 [facility] Serum beta-hCG test, qualita tiveOrdered By: Yessica Guthrie on 2024 Beta HCG ( test) Ql Negative [facility] Serum creatinine measurement (mass/volume)Ordered By: Yessica Guthrie on 2024 Creatinine [Mass/Vol] 0.68 mg/dL Low 0.70-1.20 [facility] Serum glucose measurement (m ass/volume)Ordered By: Yessica Guthrie on 2024 Glucose [Mass/Vol] 83 mg/dL 70-[address] [facility] Serum or plasma calcium cherelle urement (mass/volume)Ordered By: Yessica Guthrie on 2024 Calcium [Mass/Vol] 9.6 mg/dL 7.6-11.[address] [facility] Serum or plasma urea nitroge n measurement (mass/volume)Ordered By: Yessica Guthrie on 2024 Urea nitrogen [Mass/Vol] 10 mg/dL 4-19 [facility] Sodium levelOrdered By: Leander Guthrie on 2024 Sodium [Moles/Vol] 141 mmol/L 133-[address] [facility] White blood cell (WBC) count Ordered By: Yessica Guthrie on 2024 WBC (Bld) [#/Vol] 8.2 10*3/uL 4.4-11.[address] [facility] CNOVon 10-16-2024 CNOV Office Visit (ENWSTR ) -------- MARION GUTIERREZ ([id number]) 1995 F Date Time Provider Department 10/16/24 10:20 AM JEY JOHNSON ENLISATR During your visit today, we recorded the following information about you: Temperature Pulse Respiration Blood pressure 98 degrees 78/minute 22/minute 120/84 Weight Last Period 131.9 kg 09/11/24 Jey Johnson MD 10/19/2024 5:36 PM Addendum Endocrinology and Metabolism [place] Follow up note Chief complaint: Evaluation of ovarian hyperandrogenism HPI Marion Gutierrez is a 28 year old female presenting for follow up evaluation of ovarian hyperandrogenism/PCOS. She is accompanied by her mother today Initial visit 10/26/23. QUANG 07/15/24 PMH: She has gastroparesis for the last [...] Chin hair are thinner now than before Interval history: 10/16/24: No new complaints She is on OCPs, has regular cycles. Hirsutism has improved She has a hx of ?gastroparesis due to which I recommended endocrine weight management referral for discussing other options for weight loss but she declined at that time She is seeing GI, Dr. Oliva at [facility], with recommendations for possible initiation of GLP-1 agonist. Recently had a severe episode of diarrhea requiring hospitalization PAST MEDICAL HISTORY: PAST MEDICAL HISTORY Diagnosis [...] 300 mg capsule Take 300 mg by mout (more content not 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 Normal [facility] Absolute lymphocyte countOrd ered By: Mazin Wilkinson on 09-27-2024 Lymphocytes Auto (Unsp spec) [#/Vol] 1.38 10*3/uL 0.83-4.51 [facility] Absolute neutrophil countOrd ered By: Mazin Wilkinson on 09-27-2024 Neutrophils (Bld) [#/Vol] 3.7 10*3/uL 2.0-7.7 [facility] Alcohol, Blood (Medical)-Ser umon 09-27-2024 SERUM ETOH < 10.1 Normal <=10.0 [facility] Comment on above: Result Comment: This test is for medical purposes only. The legaldefinition of intoxication varies according to local law. Performed By: #### L 700.6800, L100.0100, L505.5000, L501.9100, L500.4050 ####[facility] [address] [place], [place], [id number] Amphetamine detection with 1 000 ng/mL as cutoffOrdered By: Mazin Wilkisnon on 09-27-2024 Amphetamines Screen method >1000 ng/mL Ql (U) Negative < 200 ng/mL [facility] Anion gap in Serum or Plasma Ordered By: Mazin Wilkinson on 09-27-2024 Anion gap [Moles/Vol] 13 mmol/L 5-15 [facility] Automated lymphocyte count a s percentage of total leukocytesOrdered By: Mazin Wilkinson on 09-27-2024 Lymphocytes/100 WBC Auto (Unsp spec) 24.2 % 19-41 [facility] BUN/creatinine ratioOrdered By: Mazin Wilkinson on 09-27-2024 Urea nitrogen/Creatinine [Mass ratio] 13.6 mg/mg 10-20 [facility] Basophil percentageOrdered B y: Mazin Wilkinson on 09-27-2024 Basophils/100 WBC (Bld) 0.7 % 0-1 [facility] Bilirubin, totalOrdered By: Mazin Wilkinson on 09-27-2024 Bilirubin [Mass/Vol] 0.36 mg/dL 0.00-1.30 [facility] CBC W/Diff, Automatedon Absolute Lymph 1.38 X10 3/uL Normal 0.83-4.51 [facility] Comment on above: Performed By: #### L 700.6800, L100.0100, L505.5000, L501.9100, L500.4050 ####[facility] [address] [place], [address] Absolute Neut 3.7 X10 3/uL Normal 2.0-7.7 [facility] Comment on above: Performed By: #### L 700.6800, L100.0100, L505.5000, L501.9100, L500.4050 ####[facility] [address] [place], [address] Basophils/100 WBC (Bld) 0.7 % Normal 0-1 [facility] Comment on above: Performed By: #### L 700.6800, L100.0100, L505.5000, L501.9100, L500.4050 ####[facility] [address] [place], [address] Eosinophils/100 WBC (Bld) 1.4 % Normal 0-5 [facility] Comment on above: Performed By: #### L 700.6800, L100.0100, L505.5000, L501.9100, L500.4050 ####[facility] [address] [place], [address] Erythrocyte distribution width (RBC) [Ratio] 13.9 % Normal 11.6-14.6 [facility] Comment on above: Performed By: #### L 700.6800, L100.0100, L505.5000, L501.9100, L500.4050 ####[facility] [address] [place], [address] Hematocrit (Bld) [Volume fraction] 41.1 % Normal 37-47 [facility] Comment on above: Performed By: #### L 700.6800, L100.0100, L505.5000, L501.9100, L500.4050 ####[facility] [address] [place], [address] Hemoglobin (Bld) [Mass/Vol] 13.5 g/dL Normal 12.0-15.0 [facility] Comment on above: Performed By: #### L 700.6800, L100.0100, L505.5000, L501.9100, L500.4050 ####[facility] [address] [place], [address] IG% 0.200 Normal 0.0-0.9 [facility] Comment on above: Result Comment: IG% - Immature Granulocytes (promyelocytes, myelocytes andmetamyelocytes) > 1% indicates that a LEFT SHIFT is Present. Performed By: #### L 700.6800, L100.0100, L505.5000, L501.9100, L500.4050 ####[facility] [address] [place], [address] Lymphocytes/100 WBC (Bld) 24.2 % Normal 19-41 [facility] Comment on above: Performed By: #### L 700.6800, L100.0100, L505.5000, L501.9100, L500.4050 ####[facility] [address] [place], [address] MCH (RBC) [Entitic mass] 27.1 pg Normal 27.0-32.0 [facility] Comment on above: Performed By: #### L 700.6800, L100.0100, L505.5000, L501.9100, L500.4050 ####[facility] [address] [place], [address] MCHC (RBC) [Mass/Vol] 32.8 g/dL Normal 32-36 [facility] Comment on above: Performed By: #### L 700.6800, L100.0100, L505.5000, L501.9100, L500.4050 ####[facility] [address] [place], [address] MCV (RBC) [Entitic vol] 82.5 fL Normal 81-99 [facility] Comment on above: Performed By: #### L 700.6800, L100.0100, L505.5000, L501.9100, L500.4050 ####[facility] [address] [place], [address] Monocytes/100 WBC (Bld) 9.3 % Normal 0-10 [facility] Comment on above: Performed By: #### L 700.6800, L100.0100, L505.5000, L501.9100, L500.4050 ####[facility] [address] [place], [address] Neutrophils/100 WBC (Bld) 64.2 % Normal 47-70 [facility] Comment on above: Performed By: #### L 700.6800, L100.0100, L505.5000, L501.9100, L500.4050 ####[facility] [address] [place], [address] Nucleated RBC (Bld) [#/Vol] 0 10*3/uL Normal 0-5 [facility] Comment on above: Performed By: #### L 700.6800, L100.0100, L505.5000, L501.9100, L500.4050 ####[facility] [address] [place], [address] Platelet mean volume (Bld) [Entitic vol] 9.0 fL Normal 6.2-12.0 [facility] Comment on above: Performed By: #### L 700.6800, L100.0100, L505.5000, L501.9100, L500.4050 ####[facility] [address] [place], [address] Platelets (Bld) [#/Vol] 349 10*3/uL Normal 150-450 [facility] Comment on above: Performed By: #### L 700.6800, L100.0100, L505.5000, L501.9100, L500.4050 ####[facility] [address] [place], [address] RBC (Bld) [#/Vol] 4.98 10*6/uL Normal 4.2-5.4 [facility] Comment on above: Performed By: #### L 700.6800, L100.0100, L505.5000, L501.9100, L500.4050 ####[facility] [address] [place], [address] RDW SD 41.9 fl Normal 35.1-43.9 [facility] Comment on above: Performed By: #### L 700.6800, L100.0100, L505.5000, L501.9100, L500.4050 ####[facility] [address] [place], [address] WBC (Bld) [#/Vol] 5.7 10*3/uL Normal 4.4-11.[address] [facility] Comment on above: Performed By: #### L 700.6800, L100.0100, L505.5000, L501.9100, L500.4050 ####[facility] [address] [place], [address] Carbon dioxide, total [Moles /volume] in Central venous bloodOrdered By: Mazin Wilkinson on 09-27-2024 CO2 [Moles/Vol] 20.7 mmol/L Low 21.0-32.0 [facility] Chloride assayOrdered By: Ran Wilkinson on 09-27-2024 Chloride [Moles/Vol] 107 mmol/L 98-108 [facility] Comprehensive Metabolic Prof ilon 09-27-2024 Albumin [Mass/Vol] 4.0 g/dL Normal 3.5-5.[address] [facility] Comment on above: Performed By: #### L 700.6800, L100.0100, L505.5000, L501.9100, L500.4050 ####[facility] [address] [place], [address] Albumin/Globulin [Mass ratio] 1.3 {ratio} Normal 0.9-2.4 [facility] Comment on above: Performed By: #### L 700.6800, L100.0100, L505.5000, L501.9100, L500.4050 ####[facility] [address] [place], [address] ALK PHOS 71 U/L Normal 35-104 [facility] Comment on above: Performed By: #### L 700.6800, L100.0100, L505.5000, L501.9100, L500.4050 ####[facility] [address] [place], [address] ALT [Catalytic activity/Vol] 82 U/L High <=34 [facility] Comment on above: Performed By: #### L 700.6800, L100.0100, L505.5000, L501.9100, L500.4050 ####[facility] [address] [place], [address] AST [Catalytic activity/Vol] 53 U/L High <=31 [facility] Comment on above: Performed By: #### L 700.6800, L100.0100, L505.5000, L501.9100, L500.4050 ####[facility] [address] [place], [address] Bilirubin [Mass/Vol] 0.36 mg/dL Normal 0.00-1.30 [facility] Comment on above: Performed By: #### L 700.6800, L100.0100, L505.5000, L501.9100, L500.4050 ####[facility] [address] [place], [address] BUN/CRE 13.6 RATIO Normal 10-20 [facility] Comment on above: Performed By: #### L 700.6800, L100.0100, L505.5000, L501.9100, L500.4050 ####[facility] [address] [place], [address] Calcium [Mass/Vol] 9.8 mg/dL Normal 7.6-11.[address] [facility] Comment on above: Performed By: #### L 700.6800, L100.0100, L505.5000, L501.9100, L500.4050 ####[facility] [address] [place], [address] Chloride [Moles/Vol] 107 mmol/L Normal 98-108 [facility] Comment on above: Performed By: #### L 700.6800, L100.0100, L505.5000, L501.9100, L500.4050 ####[facility] [address] [place], [address] CO2 [Moles/Vol] 20.7 mmol/L Low 21.0-32.0 [facility] Comment on above: Performed By: #### L 700.6800, L100.0100, L505.5000, L501.9100, L500.4050 ####[facility] [address] [place], [address] Creatinine [Mass/Vol] 0.76 mg/dL Normal 0.70-1.20 [facility] Comment on above: Performed By: #### L 700.6800, L100.0100, L505.5000, L501.9100, L500.4050 ####[facility] [address] [place], [address] ECRCL 154.37 ml/min Normal 50-250 [facility] Comment on above: Performed By: #### L 700.6800, L100.0100, L505.5000, L501.9100, L500.4050 ####[facility] [address] [place], [address] GAP 13 Normal 5-15 [facility] Comment on above: Performed By: #### L 700.6800, L100.0100, L505.5000, L501.9100, L500.4050 ####[facility] [address] [place], [address] GFR/1.73 sq M.predicted among non-blacks MDRD (S/P/Bld) [Vol rate/Area] 110 mL/min/{1.73_m2} Normal >60 [facility] Comment on above: Result Comment: mL/m in/1.73m2 CKD-EPI Creatinine Equation (2020) Performed By: #### L 700.6800, L100.0100, L505.5000, L501.9100, L500.4050 ####[facility] [address] [place], [address] Globulin (S) [Mass/Vol] 3.1 g/dL Normal 2.2-4.2 [facility] Comment on above: Performed By: #### L 700.6800, L100.0100, L505.5000, L501.9100, L500.4050 ####[facility] [address] [place], [address] Glucose [Mass/Vol] 130 mg/dL High 70-[address] [facility] Comment on above: Performed By: #### L 700.6800, L100.0100, L505.5000, L501.9100, L500.4050 ####[facility] [address] [place], [address] Potassium [Moles/Vol] 3.3 mmol/L Normal 3.3-5.1 [facility] Comment on above: Performed By: #### L 700.6800, L100.0100, L505.5000, L501.9100, L500.4050 ####[facility] [address] [place], [address] Sodium [Moles/Vol] 141 mmol/L Normal 133-[address] [facility] Comment on above: Performed By: #### L 700.6800, L100.0100, L505.5000, L501.9100, L500.4050 ####[facility] [address] [place], [place], [address] T PROT 7.2 g/dL Normal 5.9-8.4 [facility] Comment on above: Performed By: #### L 700.6800, L100.0100, L505.5000, L501.9100, L500.4050 ####[facility] [address] [place], [address] Urea nitrogen [Mass/Vol] 10 mg/dL Normal 4-19 [facility] Comment on above: Performed By: #### L 700.6800, L100.0100, L505.5000, L501.9100, L500.4050 ####[facility] [address] [place], [place], [id number] Emergency Department Summary on 09-27-2024 Emergency Department Summary Normal [facility] Eosinophil percentageOrdered By: Mazin Wilkinson on 09-27-2024 Eosinophils/100 WBC (Bld) 1.4 % 0-5 [facility] Erythrocyte distribution wid th ratioOrdered By: Mazin Wilkinson on 09-27-2024 Erythrocyte distribution width (RBC) [Ratio] 13.9 % 11.6-14.6 [facility] Erythrocyte distribution wid th standard deviationOrdered By: Mazin Wilkinson on 09-27-2024 Erythrocyte distribution width (RBC) [Ratio] 41.9 fl 35.1-43.9 [facility] Glomerular filtration rate ( GFR) estimation/1.73 sq m using serum, plasma, or whole bOrdered By: Mazin Wilkinson on 09-27-2024 GFR/1.73 sq M.predicted among non-blacks MDRD (S/P/Bld) [Vol rate/Area] 110 mL/min/{1.73_m2} >60 [facility] Comment on above: mL/min/1.73m2 CKD-EP I Creatinine Equation (2020) Hematocrit Auto (Bld) [Volum e fraction]Ordered By: Mazin Wilkinson on 09-27-2024 Hematocrit (Bld) [Volume fraction] 41.1 % 37-47 [facility] Hemoglobin measurementOrdere d By: Mazin Wilkinson on 09-27-2024 Hemoglobin (Bld) [Mass/Vol] 13.5 g/dL 12.0-15.0 [facility] Immature granulocytes/100 WB C Auto (Bld)Ordered By: Mazin Wilkinson on 09-27-2024 Immature granulocytes/100 WBC (Bld) 0.200 % 0.0-0.9 [facility] Comment on above: IG% - Immature Granu locytes (promyelocytes, myelocytes and metamyelocytes) > 1% indicates that a LEFT SHIFT is Present. Laboratory - Chemistry and C hemistry - challengeOrdered By: Mazin Wilkinson on 09-27-2024 AST [Catalytic activity/Vol] 53 U/L High <32 [facility] MCV (mean corpuscular volume ) determinationOrdered By: Mazin Wilkinson on 09-27-2024 MCV (RBC) [Entitic vol] 82.5 fL 81-99 [facility] Mean corpuscular hemoglobin (MCH) determinationOrdered By: Mazin Wilkinson on 09-27-2024 MCH (RBC) [Entitic mass] 27.1 pg 27.0-32.0 [facility] Mean corpuscular hemoglobin concentration (MCHC) determinationOrdered By: Mazin Wilkinson on 09-27-2024 MCHC (RBC) [Mass/Vol] 32.8 g/dL 32-36 [facility] Mean platelet volume determi nationOrdered By: Mazin Wilkinson on 09-27-2024 Platelet mean volume (Bld) [Entitic vol] 9.0 fL 6.2-12.0 [facility] Monocyte percentageOrdered B y: Mazin Wilkinson on 09-27-2024 Monocytes/100 WBC (Bld) 9.3 % 0-10 [facility] Neutrophil percentageOrdered By: Mazin Wilkinson on 09-27-2024 Neutrophils/100 WBC (Bld) 64.2 % 47-70 [facility] No Panel InformationOrdered By: Mazin Wilkinson on 09-27-2024 Urine Buprenorphine Qualitative Negative < 200 ng/mL [facility] Urine Oxycodone Screen Negative < 100 ng/mL [facility] Negative < 200 ng/mL [facility] 53 U/L High <32 [facility] Nucleated red blood cell per centageOrdered By: Mazin Wilkinson on 09-27-2024 Nucleated RBC/100 WBC (Bld) [Ratio] 0 % 0-5 [facility] Platelet countOrdered By: Ran Wilkinson on 09-27-2024 Platelets (Bld) [#/Vol] 349 10*3/uL 150-450 [facility] Potassium measurement (mass/ volume)Ordered By: Mazin Wilkinson on 09-27-2024 Potassium (Unsp spec) [Mass/Vol] 3.3 mmol/L 3.3-5.1 [facility] ,Serum,hCG Quali.on 09-27-2024 HCG, SERUM QUAL Negative Normal [facility] Comment on above: Performed By: #### L 700.6800, L100.0100, L505.5000, L501.9100, L500.4050 ####[facility] [address] [place], [place], [id number] Quantitative urine opiates m easurementOrdered By: Mazin Wilkinson on 09-27-2024 Opiates Ql (U) Negative < 300 ng/mL [facility] RBC Auto (Bld) [#/Vol]Ordere d By: Mazin Wilkinson on 09-27-2024 RBC (Bld) [#/Vol] 4.98 10*6/uL 4.2-5.4 [facility] Screening urine fentanyl burton surementOrdered By: Mazin Wilkinson on 09-27-2024 fentaNYL Screen Ql (U) Negative [facility] Serum beta-hCG test, qualita tiveOrdered By: Mazin Wilkinson on 09-27-2024 Beta HCG ( test) Ql Negative [facility] Serum creatinine measurement (mass/volume)Ordered By: Mazin Wilkinson on 09-27-2024 Creatinine [Mass/Vol] 0.76 mg/dL 0.70-1.20 [facility] Serum globulin measurementOr dered By: Mazin Wilkinson on 09-27-2024 Globulin (S) [Mass/Vol] 3.1 g/dL 2.2-4.2 [facility] Serum glucose measurement (m ass/volume)Ordered By: Mazin Wilkinson on 09-27-2024 Glucose [Mass/Vol] 130 mg/dL High 70-[address] [facility] Serum or plasma alanine godinez otransferase (ALT) measurementOrdered By: Mazin Wilkinson on 09-27-2024 ALT [Catalytic activity/Vol] 82 U/L High <35 [facility] Serum or plasma albumin cherelle urement (mass/volume)Ordered By: Mazin Wilkinson on 09-27-2024 Albumin [Mass/Vol] 4.0 g/dL 3.5-5.[address] [facility] Serum or plasma albumin/glob ulin mass ratioOrdered By: Mazin Wilkinson on 09-27-2024 Albumin/Globulin [Mass ratio] 1.3 {ratio} 0.9-2.4 [facility] Serum or plasma alkaline rohit sphatase measurementOrdered By: Mazin Wilkinson on 09-27-2024 ALP [Catalytic activity/Vol] 71 U/L 35-104 [facility] Serum or plasma calcium cherelle urement (mass/volume)Ordered By: Mazin Wilkinson on 09-27-2024 Calcium [Mass/Vol] 9.8 mg/dL 7.6-11.[address] [facility] Serum or plasma ethanol cherelle urement (mass/volume)Ordered By: Mazin Wilkinson on 09-27-2024 Ethanol [Mass/Vol] mg/dL <10.[address] [facility] Comment on above: This test is for med ical purposes only. The legal definition of intoxication varies according to local law. Serum or plasma urea nitroge n measurement (mass/volume)Ordered By: Mazin Wilkinson on 09-27-2024 Urea nitrogen [Mass/Vol] 10 mg/dL 4-19 [facility] Sodium levelOrdered By: Mazin Wilkinson on 09-27-2024 Sodium [Moles/Vol] 141 mmol/L 133-[address] [facility] Total proteinOrdered By: Damian Wilkinson on 09-27-2024 Protein [Mass/Vol] 7.2 g/dL 5.9-8.[address] [facility] Urine Drug Screen (VISTA)on 09-27-2024 AMPHETAMINES Negative Normal <1000 ng/mL [facility] Comment on above: Performed By: #### L 700.6800, L100.0100, L505.5000, L501.9100, L500.4050 ####[facility] [address] [place], [address] BARBITIURATES Negative Normal < 200 ng/mL [facility] Comment on above: Performed By: #### L 700.6800, L100.0100, L505.5000, L501.9100, L500.4050 ####[facility] [address] [place], [place], [phone] BENZODIAZIPINE Negative Normal < 200 ng/mL [facility] Comment on above: Performed By: #### L 700.6800, L100.0100, L505.5000, L501.9100, L500.4050 ####[facility] [address] [place], [place], [phone] BUP Ur Drug Scr Negative Normal < 200 ng/mL [facility] Comment on above: Performed By: #### L 700.6800, L100.0100, L505.5000, L501.9100, L500.4050 ####[facility] [address] [place], [place], [phone] COCAINE Negative Normal < 300 ng/mL [facility] Comment on above: Performed By: #### L 700.6800, L100.0100, L505.5000, L501.9100, L500.4050 ####[facility] [address] [place], [place], [phone] Fentanyl Negative Normal [facility] Comment on above: Performed By: #### L 700.6800, L100.0100, L505.5000, L501.9100, L500.4050 ####[facility] [address] [place], [place], [phone] METHADONE Negative Normal < 300 ng/mL [facility] Comment on above: Performed By: #### L 700.6800, L100.0100, L505.5000, L501.9100, L500.4050 ####[facility] [address] [place], [address] OPIATES Negative Normal < 300 ng/mL [facility] Comment on above: Performed By: #### L 700.6800, L100.0100, L505.5000, L501.9100, L500.4050 ####[facility] [address] [place], [address] OXYCODONE Negative Normal < 100 ng/mL [facility] Comment on above: Performed By: #### L 700.6800, L100.0100, L505.5000, L501.9100, L500.4050 ####[facility] [address] [place], [address] PCP Negative Normal < 25 ng/mL [facility] Comment on above: Performed By: #### L 700.6800, L100.0100, L505.5000, L501.9100, L500.4050 ####[facility] [address] [place], [address] THC Negative Normal < 50 ng/mL [facility] Comment on above: Performed By: #### L 700.6800, L100.0100, L505.5000, L501.9100, L500.4050 ####[facility] [address] [place], [address] Urine benzodiazepine levelOr dered By: Mazin Wilkinson on 09-27-2024 Benzodiazepines Ql (U) Negative < 200 ng/mL [facility] Urine cocaine levelOrdered B y: Mazin Wilkinson on 09-27-2024 Cocaine Ql (U) Negative < 300 ng/mL [facility] Urine ovygj-2-yzyojykeidyyda abinol (THC) measurementOrdered By: Mazin Wilkinson on 09-27-2024 Cannabinoids Screen Ql (U) Negative < 50 ng/mL [facility] Urine phencyclidine (PCP) de tectionOrdered By: Mazin Wilkinson on 09-27-2024 Phencyclidine Ql (U) Negative < 25 ng/mL [facility] White blood cell (WBC) count Ordered By: Mazin Wilkinson on 09-27-2024 WBC (Bld) [#/Vol] 5.7 10*3/uL 4.4-11.[address] [facility] Gastroenterology Visit Repor ton 09-25-2024 Gastroenterology Visit Report Normal [facility] Absolute lymphocyte countOrd ered By: India Crawford on 09-21-2024 Lymphocytes Auto (Unsp spec) [#/Vol] 2.56 10*3/uL 0.83-4.51 [facility] Absolute neutrophil countOrd ered By: India Crawford on 09-21-2024 Neutrophils (Bld) [#/Vol] 3.5 10*3/uL 2.0-7.7 [facility] Anion gap in Serum or Plasma Ordered By: India Crawford on 09-21-2024 Anion gap [Moles/Vol] 13 mmol/L 5-15 [facility] Automated lymphocyte count a s percentage of total leukocytesOrdered By: India Crawford on 09-21-2024 Lymphocytes/100 WBC Auto (Unsp spec) 37.3 % 19-41 [facility] BUN/creatinine ratioOrdered By: India Crawford on 09-21-2024 Urea nitrogen/Creatinine [Mass ratio] 16.6 mg/mg 10-20 [facility] Basophil percentageOrdered B y: India Crawford on 09-21-2024 Basophils/100 WBC (Bld) 0.6 % 0-1 [facility] Bilirubin, totalOrdered By: India Crawford on 09-21-2024 Bilirubin [Mass/Vol] 0.38 mg/dL 0.00-1.30 [facility] CBC W/Diff, Automatedon Absolute Lymph 2.56 X10 3/uL Normal 0.83-4.51 [facility] Comment on above: Performed By: #### L 100.0100 ####[facility] [address] [place], [address] Absolute Neut 3.5 X10 3/uL Normal 2.0-7.7 [facility] Comment on above: Performed By: #### L 100.0100 ####[facility] [address] [place], [address] Basophils/100 WBC (Bld) 0.6 % Normal 0-1 [facility] Comment on above: Performed By: #### L 100.0100 ####[facility] [address] [place], [address] Eosinophils/100 WBC (Bld) 1.6 % Normal 0-5 [facility] Comment on above: Performed By: #### L 100.0100 ####[facility] [address] [place], [address] Erythrocyte distribution width (RBC) [Ratio] 14.2 % Normal 11.6-14.6 [facility] Comment on above: Performed By: #### L 100.0100 ####[facility] [address] [place], [address] Hematocrit (Bld) [Volume fraction] 39.6 % Normal 37-47 [facility] Comment on above: Performed By: #### L 100.0100 ####[facility] [address] [place], [address] Hemoglobin (Bld) [Mass/Vol] 12.6 g/dL Normal 12.0-15.0 [facility] Comment on above: Performed By: #### L 100.0100 ####[facility] [address] [place], [address] IG% 0.100 Normal 0.0-0.9 [facility] Comment on above: Result Comment: IG% - Immature Granulocytes (promyelocytes, myelocytes andmetamyelocytes) > 1% indicates that a LEFT SHIFT is Present. Performed By: #### L 100.0100 ####[facility] [address] [place], [address] Lymphocytes/100 WBC (Bld) 37.3 % Normal 19-41 [facility] Comment on above: Performed By: #### L 100.0100 ####[facility] [address] [place], [address] MCH (RBC) [Entitic mass] 26.7 pg Low 27.0-32.0 [facility] Comment on above: Performed By: #### L 100.0100 ####[facility] [address] [place], [address] MCHC (RBC) [Mass/Vol] 31.8 g/dL Low 32-36 [facility] Comment on above: Performed By: #### L 100.0100 ####[facility] [address] [place], [address] MCV (RBC) [Entitic vol] 83.9 fL Normal 81-99 [facility] Comment on above: Performed By: #### L 100.0100 ####[facility] [address] [place], [address] Monocytes/100 WBC (Bld) 9.8 % Normal 0-10 [facility] Comment on above: Performed By: #### L 100.0100 ####[facility] [address] [place], [address] Neutrophils/100 WBC (Bld) 50.6 % Normal 47-70 [facility] Comment on above: Performed By: #### L 100.0100 ####[facility] [address] [place], [address] Nucleated RBC (Bld) [#/Vol] 0 10*3/uL Normal 0-5 [facility] Comment on above: Performed By: #### L 100.0100 ####[facility] [address] [place], [address] Platelet mean volume (Bld) [Entitic vol] 9.1 fL Normal 6.2-12.0 [facility] Comment on above: Performed By: #### L 100.0100 ####[facility] [address] [place], [address] Platelets (Bld) [#/Vol] 376 10*3/uL Normal 150-450 [facility] Comment on above: Performed By: #### L 100.0100 ####[facility] [address] [place], [address] RBC (Bld) [#/Vol] 4.72 10*6/uL Normal 4.2-5.4 [facility] Comment on above: Performed By: #### L 100.0100 ####[facility] [address] [place], [address] RDW SD 43.8 fl Normal 35.1-43.9 [facility] Comment on above: Performed By: #### L 100.0100 ####[facility] [address] [place], [address] WBC (Bld) [#/Vol] 6.9 10*3/uL Normal 4.4-11.[address] [facility] Comment on above: Performed By: #### L 100.0100 ####[facility] [address] [place], [address] CDIFF (PCR)on 09-21-2024 CDIFF Normal [facility] Comment on above: Performed By: #### M 100.6796 ####[facility] [address] [place], [address] Carbon dioxide, total [Moles /volume] in Central venous bloodOrdered By: India Crawford on 09-21-2024 CO2 [Moles/Vol] 21.8 mmol/L 21.0-32.0 [facility] Chloride assayOrdered By: Shivani Crawford on 09-21-2024 Chloride [Moles/Vol] 105 mmol/L 98-108 [facility] Clostridium difficile detect ion by polymerase chain reactionOrdered By: India Crawford on 09-21-2024 C. difficile DNA DAMARIS+probe Ql (Unsp spec) [facility] C. difficile DNA DAMARIS+probe Ql (Unsp spec) [facility] Comprehensive Metabolic Prof ilon 09-21-2024 Albumin [Mass/Vol] 4.0 g/dL Normal 3.5-5.[address] [facility] Comment on above: Performed By: #### L 500.4050 ####[facility] [address] [place], [address] Albumin/Globulin [Mass ratio] 1.3 {ratio} Normal 0.9-2.4 [facility] Comment on above: Performed By: #### L 500.4050 ####[facility] [address] [place], [address] ALK PHOS 65 U/L Normal 35-104 [facility] Comment on above: Performed By: #### L 500.4050 ####[facility] [address] [place], [address] ALT [Catalytic activity/Vol] 57 U/L High <=34 [facility] Comment on above: Performed By: #### L 500.4050 ####[facility] [address] [place], [address] AST [Catalytic activity/Vol] 51 U/L High <=31 [facility] Comment on above: Performed By: #### L 500.4050 ####[facility] [address] [place], [address] Bilirubin [Mass/Vol] 0.38 mg/dL Normal 0.00-1.30 [facility] Comment on above: Performed By: #### L 500.4050 ####[facility] [address] [place], [address] BUN/CRE 16.6 RATIO Normal 10-20 [facility] Comment on above: Performed By: #### L 500.4050 ####[facility] [address] [place], [address] Calcium [Mass/Vol] 9.2 mg/dL Normal 7.6-11.[address] [facility] Comment on above: Performed By: #### L 500.4050 ####[facility] [address] [place], [address] Chloride [Moles/Vol] 105 mmol/L Normal 98-108 [facility] Comment on above: Performed By: #### L 500.4050 ####[facility] [address] [place], [address] CO2 [Moles/Vol] 21.8 mmol/L Normal 21.0-32.0 [facility] Comment on above: Performed By: #### L 500.4050 ####[facility] [address] [place], [address] Creatinine [Mass/Vol] 0.60 mg/dL Low 0.70-1.20 [facility] Comment on above: Performed By: #### L 500.4050 ####[facility] [address] [place], [address] ECRCL 196.90 ml/min Normal 50-250 [facility] Comment on above: Performed By: #### L 500.4050 ####[facility] [address] [place], [address] GAP 13 Normal 5-15 [facility] Comment on above: Performed By: #### L 500.4050 ####[facility] [address] [place], [address] GFR/1.73 sq M.predicted among non-blacks MDRD (S/P/Bld) [Vol rate/Area] 126 mL/min/{1.73_m2} Normal >60 [facility] Comment on above: Result Comment: mL/m in/1.73m2 CKD-EPI Creatinine Equation (2020) Performed By: #### L 500.4050 ####[facility] [address] [place], [address] Globulin (S) [Mass/Vol] 3.0 g/dL Normal 2.2-4.2 [facility] Comment on above: Performed By: #### L 500.4050 ####[facility] [address] [place], [address] Glucose [Mass/Vol] 94 mg/dL Normal 70-[address] [facility] Comment on above: Performed By: #### L 500.4050 ####[facility] [address] [place], [address] Potassium [Moles/Vol] 3.8 mmol/L Normal 3.3-5.1 [facility] Comment on above: Performed By: #### L 500.4050 ####[facility] [address] [place], [address] Sodium [Moles/Vol] 140 mmol/L Normal 133-[address] [facility] Comment on above: Performed By: #### L 500.4050 ####[facility] [address] [place], [address] T PROT 7.0 g/dL Normal 5.9-8.4 [facility] Comment on above: Performed By: #### L 500.4050 ####[facility] [address] [place], [address] Urea nitrogen [Mass/Vol] 10 mg/dL Normal 4-19 [facility] Comment on above: Performed By: #### L 500.4050 ####[facility] [address] [place], [address] Emergency Department Summary on 09-21-2024 Emergency Department Summary Normal [facility] Eosinophil percentageOrdered By: India Crawford on 09-21-2024 Eosinophils/100 WBC (Bld) 1.6 % 0-5 [facility] Erythrocyte distribution wid th ratioOrdered By: India Crawford on 09-21-2024 Erythrocyte distribution width (RBC) [Ratio] 14.2 % 11.6-14.6 [facility] Erythrocyte distribution wid th standard deviationOrdered By: India Crawford on 09-21-2024 Erythrocyte distribution width (RBC) [Ratio] 43.8 fl 35.1-43.9 [facility] Glomerular filtration rate ( GFR) estimation/1.73 sq m using serum, plasma, or whole bOrdered By: India Crawford on 09-21-2024 GFR/1.73 sq M.predicted among non-blacks MDRD (S/P/Bld) [Vol rate/Area] 126 mL/min/{1.73_m2} >60 [facility] Comment on above: mL/min/1.73m2 CKD-EP I Creatinine Equation (2020) Hematocrit Auto (Bld) [Volum e fraction]Ordered By: India Crawford on 09-21-2024 Hematocrit (Bld) [Volume fraction] 39.6 % 37-47 [facility] Hemoglobin measurementOrdere d By: India Crawford on 09-21-2024 Hemoglobin (Bld) [Mass/Vol] 12.6 g/dL 12.0-15.0 [facility] Immature granulocytes/100 WB C Auto (Bld)Ordered By: India Crawford on 09-21-2024 Immature granulocytes/100 WBC (Bld) 0.100 % 0.0-0.9 [facility] Comment on above: IG% - Immature Granu locytes (promyelocytes, myelocytes and metamyelocytes) > 1% indicates that a LEFT SHIFT is Present. Laboratory - Chemistry and C hemistry - challengeOrdered By: India Crawford on 09-21-2024 AST [Catalytic activity/Vol] 51 U/L High <32 [facility] MCV (mean corpuscular volume ) determinationOrdered By: India Crawford on 09-21-2024 MCV (RBC) [Entitic vol] 83.9 fL 81-99 [facility] Mean corpuscular hemoglobin (MCH) determinationOrdered By: India Crawford on 09-21-2024 MCH (RBC) [Entitic mass] 26.7 pg Low 27.0-32.0 [facility] Mean corpuscular hemoglobin concentration (MCHC) determinationOrdered By: India Crawford on 09-21-2024 MCHC (RBC) [Mass/Vol] 31.8 g/dL Low 32-36 [facility] Mean platelet volume determi nationOrdered By: India Crawford on 09-21-2024 Platelet mean volume (Bld) [Entitic vol] 9.1 fL 6.2-12.0 [facility] Monocyte percentageOrdered B y: India Crawford on 09-21-2024 Monocytes/100 WBC (Bld) 9.8 % 0-10 [facility] Neutrophil percentageOrdered By: India Crawford on 09-21-2024 Neutrophils/100 WBC (Bld) 50.6 % 47-70 [facility] No Panel InformationOrdered By: India Crawford on 09-21-2024 51 U/L High <32 [facility] Nucleated red blood cell per centageOrdered By: India Crawford on 09-21-2024 Nucleated RBC/100 WBC (Bld) [Ratio] 0 % 0-5 [facility] Platelet countOrdered By: Shivani Crawford on 09-21-2024 Platelets (Bld) [#/Vol] 376 10*3/uL 150-450 [facility] Potassium measurement (mass/ volume)Ordered By: India Crawford on 09-21-2024 Potassium (Unsp spec) [Mass/Vol] 3.8 mmol/L 3.3-5.1 [facility] RBC Auto (Bld) [#/Vol]Ordere d By: India Crawford on 09-21-2024 RBC (Bld) [#/Vol] 4.72 10*6/uL 4.2-5.4 [facility] Serum creatinine measurement (mass/volume)Ordered By: India Crawford on 09-21-2024 Creatinine [Mass/Vol] 0.60 mg/dL Low 0.70-1.20 [facility] Serum globulin measurementOr dered By: India Crawford on 09-21-2024 Globulin (S) [Mass/Vol] 3.0 g/dL 2.2-4.2 [facility] Serum glucose measurement (m ass/volume)Ordered By: India Crawford on 09-21-2024 Glucose [Mass/Vol] 94 mg/dL 70-[address] [facility] Serum or plasma alanine godinez otransferase (ALT) measurementOrdered By: India Crawford on 09-21-2024 ALT [Catalytic activity/Vol] 57 U/L High <35 [facility] Serum or plasma albumin cherelle urement (mass/volume)Ordered By: India Crawford on 09-21-2024 Albumin [Mass/Vol] 4.0 g/dL 3.5-5.[address] [facility] Serum or plasma albumin/glob ulin mass ratioOrdered By: India Crawford on 09-21-2024 Albumin/Globulin [Mass ratio] 1.3 {ratio} 0.9-2.4 [facility] Serum or plasma alkaline rohit sphatase measurementOrdered By: India Crawford on 09-21-2024 ALP [Catalytic activity/Vol] 65 U/L 35-104 [facility] Serum or plasma calcium cherelle urement (mass/volume)Ordered By: India Crawford on 09-21-2024 Calcium [Mass/Vol] 9.2 mg/dL 7.6-11.[address] [facility] Serum or plasma urea nitroge n measurement (mass/volume)Ordered By: India Crawford on 09-21-2024 Urea nitrogen [Mass/Vol] 10 mg/dL 4-19 [facility] Sodium levelOrdered By: India Crawford on 09-21-2024 Sodium [Moles/Vol] 140 mmol/L 133-[address] [facility] Total proteinOrdered By: Izabella Crawford on 09-21-2024 Protein [Mass/Vol] 7.0 g/dL 5.9-8.[address] [facility] White blood cell (WBC) count Ordered By: India Crawford on 09-21-2024 WBC (Bld) [#/Vol] 6.9 10*3/uL 4.4-11.0 [facility] 09-18-2024 [facility] Telephone ([facility]) -------- DOCMARION LORENZ ([id number]) 1995 F Date Time Provider Department 09/18/[address] [facility] During your visit today, we recorded the following information about you: Arsenio Solorio LSW 09/18/2024 11:35 AM Signed Sensitive Note Diabesity AND Endocrinology Metabolic Exercise Noel ([id number]) Qualifying Questionnaire Patient Name: Marion Gutierrez Patient Referred Date: 09/18/2024 Approved or denied: Approved Method of Contact: (home) Provider Action/ FYI: Approved emergency service worker verified patient's identity by name, date of , and address. What is your City of Residence? [facility] Saira Card[address] [facility] [address] What is your insurance? Payor: [employer] / Plan: [employer] / Product Type: Medicaid / How many people live in your household? 1 What is your household income? $967 monthly $11,604 annually Are there any other factors that would qualify you for this program? n/a Notes: n/a Signature: KANU Helms Patient Name: Marion Gutierrez Date: 09/18/2024 Time: 11:32 AM Pager/Contact #: [phone] During this patient contact I spent approximately 15 minutes in counseling regarding [id number]. Allergies As of Date: 09/18/2024 Noted Allergy [...] Intolerance Date Reviewed: 07/15/2024 Reviewed by: Amy Bragg, RN - Fully Assessed Prescriptions as [...] Suicidal ideati (more content not 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 Normal [facility] L3410.9992on 09-05-2024 [facility] Misc. COMMENT Normal . [facility] Comment on above: Order Comment: [facility] [place] ORANGE/[id number] VG Result Comment: Test Ordered: [id number] Nuab Vaginitis (VG)Test(s) 194929- Atopobium vaginae; 219648- BVAB 2;326860- Megasphaera 1was developed and its performance characteristicsdetermined by [facility]. It has not been cleared or approvedby the Food and Drug Administration.Test(s) 157653-Tsbazgm albicans, DAMARIS; 673064-Pytoncc glabrata, NAAwas developed and its performance characteristicsdetermined by [employer]. It has not been cleared or approvedby [...] =G Reference Range: NegativePerformed at: = - Lab[address] [id number] Director: Idalia Yoo MD, Phone: [phone] at: [address] [id number] Director: Neeraj Marte PhD, Phone: [phone] Performed By: #### L 3210.9992, L400.0001, L500.2500, L100.0100, M100.2200 ####[facility] [address] [place], [place], [address] Lithiumon 09-05-2024 LI 0.53 mmol/L Low 0.60-1.20 [facility] Comment on above: Order Comment: RESUL TS ARE DELAYED DUE TO GRANITE INSTALLER MAINTENANCE/QC TASKS Performed By: #### L 501.9060 ####[facility] [address] [place], [address] Absolute lymphocyte countOrd ered By: Alexandr Smith on 09-04-2024 Lymphocytes Auto (Unsp spec) [#/Vol] 2.36 10*3/uL 0.83-4.51 [facility] Absolute neutrophil countOrd ered By: Alexandr Smith on 09-04-2024 Neutrophils (Bld) [#/Vol] 3.9 10*3/uL 2.0-7.7 [facility] Anion gap in Serum or Plasma Ordered By: Alexandr Smith on 09-04-2024 Anion gap [Moles/Vol] 12 mmol/L - [facility] Automated lymphocyte count a s percentage of total leukocytesOrdered By: Alexandr Smith on 09-04-2024 Lymphocytes/100 WBC Auto (Unsp spec) 33.0 % - [facility] BUN/creatinine ratioOrdered By: Alexandr Smith on 09-04-2024 Urea nitrogen/Creatinine [Mass ratio] 17.9 mg/mg - [facility] Basic Metabolic Profile (BMP )on 09-04-2024 BUN/CRE 17.9 RATIO Normal - [facility] Comment on above: Performed By: #### L 501.5200, L100.0100, L500.2500 ####[facility] [address] [place], [address] Calcium [Mass/Vol] 9.1 mg/dL Normal 7.6-11.[address] [facility] Comment on above: Performed By: #### L 501.5200, L100.0100, L500.2500 ####[facility] [address] [place], [address] Chloride [Moles/Vol] 105 mmol/L Normal 98-108 [facility] Comment on above: Performed By: #### L 501.5200, L100.0100, L500.2500 ####[facility] [address] [place], [address] CO2 [Moles/Vol] 21.9 mmol/L Normal 21.0-32.0 [facility] Comment on above: Performed By: #### L 501.5200, L100.0100, L500.2500 ####[facility] [address] [place], [address] Creatinine [Mass/Vol] 0.57 mg/dL Low 0.70-1.20 [facility] Comment on above: Performed By: #### L 501.5200, L100.0100, L500.2500 ####[facility] [address] [place], [address] ECRCL 210.24 ml/min Normal 50-250 [facility] Comment on above: Performed By: #### L 501.5200, L100.0100, L500.2500 ####[facility] [address] [place], [address] GAP 12 Normal 5-15 [facility] Comment on above: Performed By: #### L 501.5200, L100.0100, L500.2500 ####[facility] [address] [place], [address] GFR/1.73 sq M.predicted among non-blacks MDRD (S/P/Bld) [Vol rate/Area] 128 mL/min/{1.73_m2} Normal >60 [facility] Comment on above: Result Comment: mL/m in/1.73m2 CKD-EPI Creatinine Equation (2020) Performed By: #### L 501.5200, L100.0100, L500.2500 ####[facility] [address] [place], [address] Glucose [Mass/Vol] 117 mg/dL High 70-[address] [facility] Comment on above: Performed By: #### L 501.5200, L100.0100, L500.2500 ####[facility] [address] [place], [address] Potassium [Moles/Vol] 4.1 mmol/L Normal 3.3-5.1 [facility] Comment on above: Result Comment: Hemo lysis present, Results??could be affected.?? Performed By: #### L 501.5200, L100.0100, L500.2500 ####[facility] [address] [place], [address] Sodium [Moles/Vol] 138 mmol/L Normal 133-[address] [facility] Comment on above: Performed By: #### L 501.5200, L100.0100, L500.2500 ####[facility] [address] [place], [address] Urea nitrogen [Mass/Vol] 10 mg/dL Normal 4-19 [facility] Comment on above: Performed By: #### L 501.5200, L100.0100, L500.2500 ####[facility] [address] [place], [address] Basophil percentageOrdered B y: Alexandr Smith on 09-04-2024 Basophils/100 WBC (Bld) 0.7 % 0-1 [facility] Blood manual differential co mment interpretation (narrative result)Ordered By: Alexandr Smith on 09-04-2024 Manual differential comment [place] (Bld) [Interp] SCANNED [facility] Brain/Head without Contrasto n 09-04-2024 Brain/Head without Contrast Normal [facility] CBC W/Diff, Automatedon 08-19 SMEAR COMMENT SCANNED Normal [facility] Comment on above: Performed By: #### L 501.5200, L100.0100, L500.2500 ####[facility] [address] [place], [address] Carbon dioxide, total [Moles /volume] in Central venous bloodOrdered By: Alexandr Smith on 09-04-2024 CO2 [Moles/Vol] 21.9 mmol/L 21.0-32.0 [facility] Chloride assayOrdered By: Shannen Smith on 09-04-2024 Chloride [Moles/Vol] 105 mmol/L 98-108 [facility] Emergency Department Summary on 09-04-2024 Emergency Department Summary Normal [facility] Eosinophil percentageOrdered By: Alexandr Smith on 09-04-2024 Eosinophils/100 WBC (Bld) 1.4 % 0-5 [facility] Erythrocyte distribution wid th ratioOrdered By: Alexandr Smith on 09-04-2024 Erythrocyte distribution width (RBC) [Ratio] 14.4 % 11.6-14.6 [facility] Erythrocyte distribution wid th standard deviationOrdered By: Alexandr Smith on 09-04-2024 Erythrocyte distribution width (RBC) [Ratio] 43.3 fl 35.1-43.9 [facility] Glomerular filtration rate ( GFR) estimation/1.73 sq m using serum, plasma, or whole bOrdered By: Alexandr Smith on 09-04-2024 GFR/1.73 sq M.predicted among non-blacks MDRD (S/P/Bld) [Vol rate/Area] 128 mL/min/{1.73_m2} >60 [facility] Comment on above: mL/min/1.73m2 CKD-EP I Creatinine Equation (2020) Hematocrit Auto (Bld) [Volum e fraction]Ordered By: Alexandr Smith on 09-04-2024 Hematocrit (Bld) [Volume fraction] 38.0 % 37-47 [facility] Hemoglobin measurementOrdere d By: Alexandr Smith on 09-04-2024 Hemoglobin (Bld) [Mass/Vol] 12.3 g/dL 12.0-15.0 [facility] Immature granulocytes/100 WB C Auto (Bld)Ordered By: Alexandr Smith on 09-04-2024 Immature granulocytes/100 WBC (Bld) 0.400 % 0.0-0.9 [facility] Comment on above: IG% - Immature Granu locytes (promyelocytes, myelocytes and metamyelocytes) > 1% indicates that a LEFT SHIFT is Present. MCV (mean corpuscular volume ) determinationOrdered By: Alexandr Smith on 09-04-2024 MCV (RBC) [Entitic vol] 83.0 fL 81-99 [facility] Magnesiumon 09-04-2024 Magnesium [Mass/Vol] 2.1 mg/dL Normal 1.5-2.2 [facility] Comment on above: Performed By: #### L 501.5200, L100.0100, L500.2500 ####[facility] [address] [place], [address] Magnesium measurement (mass/ volume)Ordered By: Alexandr Smith on 09-04-2024 Magnesium (Unsp spec) [Mass/Vol] 2.1 mg/dL 1.5-2.2 [facility] Mean corpuscular hemoglobin (MCH) determinationOrdered By: Alexandr Smith on 09-04-2024 MCH (RBC) [Entitic mass] 26.9 pg Low 27.0-32.0 [facility] Mean corpuscular hemoglobin concentration (MCHC) determinationOrdered By: Alexandr Smith on 09-04-2024 MCHC (RBC) [Mass/Vol] 32.4 g/dL 32-36 [facility] Mean platelet volume determi nationOrdered By: Alexandr Smith on 09-04-2024 Platelet mean volume (Bld) [Entitic vol] 11.4 fL 6.2-12.0 [facility] Monocyte percentageOrdered B y: Alexandr Smith on 09-04-2024 Monocytes/100 WBC (Bld) 9.8 % 0-10 [facility] Neutrophil percentageOrdered By: Alexandr Smith on 09-04-2024 Neutrophils/100 WBC (Bld) 54.7 % 47-70 [facility] Nucleated red blood cell per centageOrdered By: Alexandr Smith on 09-04-2024 Nucleated RBC/100 WBC (Bld) [Ratio] 0 % 0-5 [facility] Platelet countOrdered By: Shannen Smith on 09-04-2024 Platelets (Bld) [#/Vol] 241 10*3/uL 150-450 [facility] Potassium measurement (mass/ volume)Ordered By: Alexandr Smith on 09-04-2024 Potassium (Unsp spec) [Mass/Vol] 4.1 mmol/L 3.3-5.1 [facility] Comment on above: Hemolysis present, R esults could be affected. RBC Auto (Bld) [#/Vol]Ordere d By: Alexandr Smith on 09-04-2024 RBC (Bld) [#/Vol] 4.58 10*6/uL 4.2-5.4 [facility] Serum creatinine measurement (mass/volume)Ordered By: Alexandr Smith on 09-04-2024 Creatinine [Mass/Vol] 0.57 mg/dL Low 0.70-1.20 [facility] Serum glucose measurement (m ass/volume)Ordered By: Alexandr Smith on 09-04-2024 Glucose [Mass/Vol] 117 mg/dL High 70-[address] [facility] Serum or plasma calcium cherelle urement (mass/volume)Ordered By: Alexandr Smith on 09-04-2024 Calcium [Mass/Vol] 9.1 mg/dL 7.6-11.[address] [facility] Serum or plasma urea nitroge n measurement (mass/volume)Ordered By: Alexandr Smith on 09-04-2024 Urea nitrogen [Mass/Vol] 10 mg/dL 4-19 [facility] Sodium levelOrdered By: Samy Smith on 09-04-2024 Sodium [Moles/Vol] 138 mmol/L 133-[address] [facility] Urine Cultureon 09-04-2024 [facility] Mixed Gram Pos Gram Neg Org [place] Count 25,000-50,000 MIXC Mixed contaminants. Submit a new specimen if indicated. Normal [facility] Comment on above: Performed By: #### L 3410.9992, L400.0001, L500.2500, L100.0100, M100.2200 ####[facility] [address] [place], [place], [id number] White blood cell (WBC) count Ordered By: Alexandr Smith on 09-04-2024 WBC (Bld) [#/Vol] 7.2 10*3/uL 4.4-11.[address] [facility] Absolute lymphocyte countOrd ered By: [facility] Naina Da Silva on 09-02-2024 Lymphocytes Auto (Unsp spec) [#/Vol] 2.46 10*3/uL 0.83-4.51 [facility] Absolute neutrophil countOrd ered By: [facility] Naina Da Silva on 09-02-2024 Neutrophils (Bld) [#/Vol] 5.1 10*3/uL 2.0-7.7 [facility] Anion gap in Serum or Plasma [facility] on 09-02-2024 Anion gap [Moles/Vol] 10 mmol/L 07-03 [facility] Automated lymphocyte count a s percentage of total leukocytesOrdered By: [facility] Naina Avinash on 09-02-2024 Lymphocytes/100 WBC Auto (Unsp spec) 29.4 % [facility] BUN/creatinine ratioOrdered By: [facility] Avinash on 09-02-2024 Urea nitrogen/Creatinine [Mass ratio] 22.5 mg/mg High - [facility] Basic Metabolic Profile (BMP )on 09-02-2024 BUN/CRE 22.5 RATIO High 10- [facility] Comment on above: Performed By: #### L 3410.9992, L400.0001, L500.2500, L100.0100, M100.2200 ####[facility] [address] [place], [address] Calcium [Mass/Vol] 9.3 mg/dL Normal 7.6-11.[address] [facility] Comment on above: Performed By: #### L 3410.9992, L400.0001, L500.2500, L100.0100, M100.2200 ####[facility] [address] [place], [address] Chloride [Moles/Vol] 107 mmol/L Normal 98-108 [facility] Comment on above: Performed By: #### L 3410.9992, L400.0001, L500.2500, L100.0100, M100.2200 ####[facility] [address] [place], [address] CO2 [Moles/Vol] 22.4 mmol/L Normal 21.0-32.0 [facility] Comment on above: Performed By: #### L 3410.9992, L400.0001, L500.2500, L100.0100, M100.2200 ####[facility] [address] [place], [address] Creatinine [Mass/Vol] 0.54 mg/dL Low 0.70-1.20 [facility] Comment on above: Performed By: #### L 3410.9992, L400.0001, L500.2500, L100.0100, M100.2200 ####[facility] [address] [place], [address] GAP 10 Normal 5-15 [facility] Comment on above: Performed By: #### L 3410.9992, L400.0001, L500.2500, L100.0100, M100.2200 ####[facility] [address] [place], [address] GFR/1.73 sq M.predicted among non-blacks MDRD (S/P/Bld) [Vol rate/Area] 129 mL/min/{1.73_m2} Normal >60 [facility] Comment on above: Result Comment: mL/m in/1.73m2 CKD-EPI Creatinine Equation (2020) Performed By: #### L 3410.9992, L400.0001, L500.2500, L100.0100, M100.2200 ####[facility] [address] [place], [address] Glucose [Mass/Vol] 90 mg/dL Normal 70-[address] [facility] Comment on above: Performed By: #### L 3410.9992, L400.0001, L500.2500, L100.0100, M100.2200 ####[facility] [address] [place], [address] Potassium [Moles/Vol] 4.0 mmol/L Normal 3.3-5.1 [facility] Comment on above: Performed By: #### L 3410.9992, L400.0001, L500.2500, L100.0100, M100.2200 ####[facility] [address] [place], [address] Sodium [Moles/Vol] 139 mmol/L Normal 133-[address] [facility] Comment on above: Performed By: #### L 3410.9992, L400.0001, L500.2500, L100.0100, M100.2200 ####[facility] [address] [place], [address] Urea nitrogen [Mass/Vol] 12 mg/dL Normal 4-19 [facility] Comment on above: Performed By: #### L 3410.9992, L400.0001, L500.2500, L100.0100, M100.2200 ####[facility] [address] [place], [address] Basophil percentageOrdered B y: [facility] Naina Da Silva on 09-02-2024 Basophils/100 WBC (Bld) 0.5 % 0-1 [facility] Bilirubin Test strip Ql (U)O rdered By: [facility] Naina Da Silva on 09-02-2024 Bilirubin Ql (U) Negative Negative [facility] CBC W/Diff, Automatedon - Absolute Lymph 2.46 X10 3/uL Normal 0.83-4.51 [facility] Comment on above: Performed By: #### L 3410.9992, L400.0001, L500.2500, L100.0100, M100.2200 ####[facility] [address] [place], [address] Absolute Neut 5.1 X10 3/uL Normal 2.0-7.7 [facility] Comment on above: Performed By: #### L 3410.9992, L400.0001, L500.2500, L100.0100, M100.2200 ####[facility] [address] [place], [address] Basophils/100 WBC (Bld) 0.5 % Normal 0-1 [facility] Comment on above: Performed By: #### L 3410.9992, L400.0001, L500.2500, L100.0100, M100.2200 ####[facility] [address] [place], [address] Eosinophils/100 WBC (Bld) 0.8 % Normal 0-5 [facility] Comment on above: Performed By: #### L 3410.9992, L400.0001, L500.2500, L100.0100, M100.2200 ####[facility] [address] [place], [address] Erythrocyte distribution width (RBC) [Ratio] 14.3 % Normal 11.6-14.6 [facility] Comment on above: Performed By: #### L 3410.9992, L400.0001, L500.2500, L100.0100, M100.2200 ####[facility] [address] [place], [address] Hematocrit (Bld) [Volume fraction] 35.8 % Low 37-47 [facility] Comment on above: Performed By: #### L 3410.9992, L400.0001, L500.2500, L100.0100, M100.2200 ####[facility] [address] [place], [address] Hemoglobin (Bld) [Mass/Vol] 11.7 g/dL Low 12.0-15.0 [facility] Comment on above: Performed By: #### L 3410.9992, L400.0001, L500.2500, L100.0100, M100.2200 ####[facility] [address] [place], [address] IG% 0.200 Normal 0.0-0.9 [facility] Comment on above: Result Comment: IG% - Immature Granulocytes (promyelocytes, myelocytes andmetamyelocytes) > 1% indicates that a LEFT SHIFT is Present. Performed By: #### L 3410.9992, L400.0001, L500.2500, L100.0100, M100.2200 ####[facility] [address] [place], [address] Lymphocytes/100 WBC (Bld) 29.4 % Normal 19-41 [facility] Comment on above: Performed By: #### L 3410.9992, L400.0001, L500.2500, L100.0100, M100.2200 ####[facility] [address] [place], [address] MCH (RBC) [Entitic mass] 27.0 pg Normal 27.0-32.0 [facility] Comment on above: Performed By: #### L 3410.9992, L400.0001, L500.2500, L100.0100, M100.2200 ####[facility] [address] [place], [address] MCHC (RBC) [Mass/Vol] 32.7 g/dL Normal 32-36 [facility] Comment on above: Performed By: #### L 3410.9992, L400.0001, L500.2500, L100.0100, M100.2200 ####[facility] [address] [place], [address] MCV (RBC) [Entitic vol] 82.5 fL Normal 81-99 [facility] Comment on above: Performed By: #### L 3410.9992, L400.0001, L500.2500, L100.0100, M100.2200 ####[facility] [address] [place], [address] Monocytes/100 WBC (Bld) 8.2 % Normal 0-10 [facility] Comment on above: Performed By: #### L 3410.9992, L400.0001, L500.2500, L100.0100, M100.2200 ####[facility] [address] [place], [address] Neutrophils/100 WBC (Bld) 60.9 % Normal 47-70 [facility] Comment on above: Performed By: #### L 3410.9992, L400.0001, L500.2500, L100.0100, M100.2200 ####[facility] [address] [place], [address] Nucleated RBC (Bld) [#/Vol] 0 10*3/uL Normal 0-5 [facility] Comment on above: Performed By: #### L 3410.9992, L400.0001, L500.2500, L100.0100, M100.2200 ####[facility] [address] [place], [address] Platelet mean volume (Bld) [Entitic vol] 9.2 fL Normal 6.2-12.0 [facility] Comment on above: Performed By: #### L 3410.9992, L400.0001, L500.2500, L100.0100, M100.2200 ####[facility] [address] [place], [address] Platelets (Bld) [#/Vol] 313 10*3/uL Normal 150-450 [facility] Comment on above: Performed By: #### L 3410.9992, L400.0001, L500.2500, L100.0100, M100.2200 ####[facility] [address] [place], [address] RBC (Bld) [#/Vol] 4.34 10*6/uL Normal 4.2-5.4 [facility] Comment on above: Performed By: #### L 3410.9992, L400.0001, L500.2500, L100.0100, M100.2200 ####[facility] [address] [place], [address] RDW SD 43.1 fl Normal 35.1-43.9 [facility] Comment on above: Performed By: #### L 3410.9992, L400.0001, L500.2500, L100.0100, M100.2200 ####[facility] [address] [place], [address] WBC (Bld) [#/Vol] 8.4 10*3/uL Normal 4.4-11.[address] [facility] Comment on above: Performed By: #### L 3410.9992, L400.0001, L500.2500, L100.0100, M100.2200 ####[facility] [address] [place], [address] Carbon dioxide, total [Moles /volume] in Central venous bloodOrdered By: [facility] Naina Da Silva on 09-02-2024 CO2 [Moles/Vol] 22.4 mmol/L 21.0-32.0 [facility] Chloride assayOrdered By: [facility] Naina Da Silva on 09-02-2024 Chloride [Moles/Vol] 107 mmol/L 98-108 [facility] Eosinophil percentageOrdered By: [facility] Naina Da Silva on 09-02-2024 Eosinophils/100 WBC (Bld) 0.8 % 0-5 [facility] Erythrocyte distribution wid th ratioOrdered By: [facility] Naina Da Silva on 09-02-2024 Erythrocyte distribution width (RBC) [Ratio] 14.3 % 11.6-14.6 [facility] Erythrocyte distribution wid th standard deviationOrdered By: [facility] Naina Da Silva on 09-02-2024 Erythrocyte distribution width (RBC) [Ratio] 43.1 fl 35.1-43.9 [facility] Glomerular filtration rate ( GFR) estimation/1.73 sq m using serum, plasma, or whole bOrdered By: [facility] Naina Da Silva on 09-02-2024 GFR/1.73 sq M.predicted among non-blacks MDRD (S/P/Bld) [Vol rate/Area] 129 mL/min/{1.73_m2} >60 [facility] Comment on above: mL/min/1.73m2 CKD-EP I Creatinine Equation (2020) Hematocrit Auto (Bld) [Volum e fraction]Ordered By: [facility] Naina Da Silva on 09-02-2024 Hematocrit (Bld) [Volume fraction] 35.8 % Low 37-47 [facility] Hemoglobin measurementOrdere d By: [facility] Naina Da Silva on 09-02-2024 Hemoglobin (Bld) [Mass/Vol] 11.7 g/dL Low 12.0-15.0 [facility] Immature granulocytes/100 WB C Auto (Bld)Ordered By: [facility] Naina Da Silva on 09-02-2024 Immature granulocytes/100 WBC (Bld) 0.200 % 0.0-0.9 [facility] Comment on above: IG% - Immature Granu locytes (promyelocytes, myelocytes and metamyelocytes) > 1% indicates that a LEFT SHIFT is Present. Ketones Test strip Ql (U)Ord ered By: [facility] Naina Da Silva on 09-02-2024 Ketones Ql (U) Negative Negative [facility] MCV (mean corpuscular volume ) determinationOrdered By: [facility] Naina Da Silva on 09-02-2024 MCV (RBC) [Entitic vol] 82.5 fL 81-99 [facility] Mean corpuscular hemoglobin (MCH) determinationOrdered By: [facility] Naina Da Silva on 09-02-2024 MCH (RBC) [Entitic mass] 27.0 pg 27.0-32.0 [facility] Mean corpuscular hemoglobin concentration (MCHC) determinationOrdered By: [facility] Naina Da Silva on 09-02-2024 MCHC (RBC) [Mass/Vol] 32.7 g/dL 32-36 [facility] Mean platelet volume determi nationOrdered By: [facility] Naina Da Silva 09-02-2024 Platelet mean volume (Bld) [Entitic vol] 9.2 fL 6.2-12.0 [facility] Microscopic analysis of urin e for red blood cells (RBC)Ordered By: [facility] Naina Avinash on 09-02-2024 Microscopic analysis of urine for red blood cells (RBC) 0 SEEN /hpf 0-5 [facility] Monocyte percentageOrdered B y: DANIELLE Naina Avinash on 09-02-2024 Monocytes/100 WBC (Bld) 8.2 % 0-10 [facility] Mucus LM Ql (Urine sed)Order ed By: [facility] Nainakourtney Da Silva on 09-02-2024 Mucus Ql (Urine sed) 0 SEEN /hpf [facility] Neutrophil percentageOrdered By: [facility] Nainakourtney Da Silva on 09-02-2024 Neutrophils/100 WBC (Bld) 60.9 % 47-70 [facility] Nitrite Test strip Ql (U)Ord ered By: [facility] Naina Da Silva on 09-02-2024 Nitrite Ql (U) Negative Negative [facility] Nucleated red blood cell per centageOrdered By: [facility] Naina Da Silva on 09-02-2024 Nucleated RBC/100 WBC (Bld) [Ratio] 0 % 0-5 [facility] [facility] Platelet countOrdered By: [facility] Nainakourtney Da Silva on 09-02-2024 Platelets (Bld) [#/Vol] 313 10*3/uL 150-450 [facility] Potassium measurement (mass/ volume)Ordered By: [facility] Naina Da Silva on 09-02-2024 Potassium (Unsp spec) [Mass/Vol] 4.0 mmol/L 3.3-5.1 [facility] Protein Test strip Ql (U)Ord ered By: [facility] Naina Da Silva on 09-02-2024 Protein Ql (U) 15 mg/dl High Negative [facility] RBC Auto (Bld) [#/Vol]Ordere d By: [facility] Naina Da Silva on 09-02-2024 RBC (Bld) [#/Vol] 4.34 10*6/uL 4.2-5.4 [facility] Serum creatinine measurement (mass/volume)Ordered By: DANIELLE Naina Da Silva on 09-02-2024 Creatinine [Mass/Vol] 0.54 mg/dL Low 0.70-1.20 [facility] Serum glucose measurement (m ass/volume)Ordered By: [facility] Naina Da Silva on 09-02-2024 Glucose [Mass/Vol] 90 mg/dL 70-[address] [facility] Serum or plasma calcium cherelle urement (mass/volume)Ordered By: [facility] Naina Da Silva on 09-02-2024 Calcium [Mass/Vol] 9.3 mg/dL 7.6-11.[address] [facility] Serum or plasma urea nitroge n measurement (mass/volume)Ordered By: [facility] Naina Avinash on 09-02-2024 Urea nitrogen [Mass/Vol] 12 mg/dL 4-19 [facility] Sodium levelOrdered By: [facility] Naina Avinash on 09-02-2024 Sodium [Moles/Vol] 139 mmol/L 133-[address] [facility] Squamous epithelial cells de tection in urine sediment by light microscopyOrdered By: [facility] Naina Avinash on 09-02-2024 Epithelial cells.squamous LM Ql (Urine sed) 0-5 SEEN /hpf 5-10 [facility] Urinalysis, Completeon 09-02 EPI,SQUAMOUS 0-5 SEEN Normal -10 [facility] Comment on above: Order Comment: CLEAN CATCH Performed By: #### L 3410.9992, L400.0001, L500.2500, L100.0100, M100.2200 ####[facility] [address] [place], [address] WBC 0-5 SEEN Normal 0-5 [facility] Comment on above: Order Comment: CLEAN CATCH Performed By: #### L 3410.9992, L400.0001, L500.2500, L100.0100, M100.2200 ####[facility] [address] [place], [address] BACTERIA 0 SEEN Normal None Seen [facility] Comment on above: Order Comment: CLEAN CATCH Performed By: #### L 3410.9992, L400.0001, L500.2500, L100.0100, M100.2200 ####[facility] [address] [place], [address] Mucus Ql (Urine sed) 0 SEEN Normal [facility] Comment on above: Order Comment: CLEAN CATCH Performed By: #### L 3410.9992, L400.0001, L500.2500, L100.0100, M100.2200 ####[facility] [address] [place], [address] RBC 0 SEEN Normal 0-5 [facility] Comment on above: Order Comment: CLEAN CATCH Performed By: #### L 3410.9992, L400.0001, L500.2500, L100.0100, M100.2200 ####[facility] [address] [place], [place], [id number] Urine clarityOrdered By: REED Da Silva on 09-02-2024 Clarity (U) Clear Clear [facility] Urine color determinationOrd ered By: REED Da Silva on 09-02-2024 Color (U) YELLOW Yellow [facility] Urine cultureOrdered By: REED Da Silva on 09-02-2024 Bacteria identified Cx Nom (U) Mixed Gram Pos & Gram Neg Org Abnormal [facility] Bacteria identified Cx Nom (U) Mixed Gram Pos & Gram Neg Org Abnormal [facility] Urine glucose detectionOrder ed By: REED Da Silva on 09-02-2024 Glucose Ql (U) Normal mg/dl Normal [facility] Urine leukocyte esterase det ection by dipstickOrdered By: REED Da Silva on 09-02-2024 Leukocyte esterase Test strip Ql (U) Negative Negative [facility] Urine pHOrdered By: Kimi Da Silva on 09-02-2024 pH (U) 6.0 [pH] 5.0 - 8.0 [facility] Urine sediment bacteria coun t by microscopy (number/high power field)Ordered By: REED Da Silva on 09-02-2024 Bacteria LM.HPF (Urine sed) [#/Area] 0 /[HPF] None Seen [facility] Urine specific gravity measu rementOrdered By: REED Da Silva on 09-02-2024 Specific gravity (U) [Rel density] 1.015 1.002-1.030 [facility] Urine urobilinogen measureme ntOrdered By: [facility] Naina Avinash on 09-02-2024 Urobilinogen Ql (U) Normal mg/dl Normal [facility] White blood cell (WBC) count Ordered By: [facility] Naina Avinash on 09-02-2024 WBC (Bld) [#/Vol] 8.4 10*3/uL 4.4-11.[address] [facility] White blood cell countOrdere d By: [facility] Naina Avinash on 09-02-2024 White blood cell count 0-5 SEEN /hpf 0-5 [facility] CNPNon 08-28-2024 CNPN Telephone ([facility]) -------- MARION GUTIERREZ ([id number]) 1995 F Date Time Provider Department 08/28/[address] 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 Note/Intervention: n/a [facility] referral placed: n/a Signature: KANU Pathak Patient Name: Marion Gutierrez Date: 08/28/2024 Time: 3:50 PM Pager/Contact #: [phone] During this patient contact I spent approximately [...] Intolerance Date Reviewed: 07/15/2024 Reviewed by: Amy Bragg, RN - Fully Assessed Reason for [...] Status:Closed by ARSENIO SOLORIO on 08/28/24 Normal [facility] Magnetic resonance imaging r eportOrdered By: Fantasma Krishnan on 08-08-[address] [facility] Imaging Services [address] [place], [place] [id number] MRI Abd WITH and W/O Contrast MR#: [id number] Acct: [id number] Name: MARION GUTIERREZ Rep #: [id number] : 1995 F 28 From: Eloy Krishnan MD PCP: Karuna Lim [facility] [employer] 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-C Status: REG CLI Study:MRI Abd WITH and W/O Contrast Date of E xam: 08/07/24 Exam# [id number] Ordering Dr: Robbi Oliva DO PROCEDURE: MRI [...] 2. Other findings as noted. 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 Phone: MRI Abd WITH and W/O Contras ton 08-07-2024 MRI Abd WITH and W/O Contrast Normal [facility] Cardiology Visit Reporton Cardiology Visit Report Normal [facility] CNOVon 07-15-2024 CNOV Office Visit (ENWSTR ) -------- MARION GUTIERREZ ([id number]) 1995 F Date Time Provider Department 07/15/24 10:40 AM JEY JOHNSON ENWSBIANCA During your visit today, we recorded the following information about you: Pulse Respiration Blood pressure Weight 61/minute 20/minute 122/78 134.4 kg Height Last Period 1.702 m 06/24/24 Jey Johnson MD 07/16/2024 11:20 PM Addendum Endocrinology and Metabolism [place] Follow up note Chief complaint: Evaluation of [...] must t (more content not 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 Normal [facility] Gastroenterology Visit Repor ton 07-08-2024 Gastroenterology Visit Report Normal [facility] Arterial study reportOrdered By: Ozzy Greco on 06-23-2024 Noninvasive arteriosclerosis study report [facility] Cardiovascular Services [address] [place] [address] Upper Extremity Arterial Study 06/20/24 1006 MR#: [id number] Acct: [id number] Name: MARION GUTIERREZ Rep #:[id number] : 1995 28 From: Ozzy Masterson Attending Dr: HORTENSIA Montalvo tatus: REG CLI Ordering Dr: Shawanda Ramires NP 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-C Usama e: 06/20/24 Location: [facility] [...] Ordering Physician: Shawanda Ramires [facility] Performed By: Tylor Encarnacion, DOMINIQUET 06/23/24 0736 Date _ Ozzy Greco MD CC: HORTENSIA Ramires; Karuna [facility] 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-[employer] Beam ~ Date Dictated: 06/20/24 1006 Date Transcribed: 06/23/24 [address] [employer] 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 [facility] Work Phone: Upper Extremity Arterial Skyler dyon 06-20-2024 Upper Extremity Arterial Study Normal [facility] Absolute lymphocyte countOrd ered By: kwasilun Beam on 06-10-2024 Lymphocytes Auto (Unsp spec) [#/Vol] 2.20 10*3/uL 0.83-4.51 [facility] Absolute neutrophil countOrd ered By: bulun Beam on 06-10-2024 Neutrophils (Bld) [#/Vol] 5.9 10*3/uL 2.0-7.7 [facility] Anion gap in Serum or Plasma Ordered By: Karuna Lim on 06-10-2024 Anion gap [Moles/Vol] 12 mmol/L 5-15 [facility] Automated lymphocyte count a s percentage of total leukocytesOrdered By: shayna Lim on 06-10-2024 Lymphocytes/100 WBC Auto (Unsp spec) 24.7 % 19-41 [facility] BUN/creatinine ratioOrdered By: [facility] Beam on 06-10-2024 Urea nitrogen/Creatinine [Mass ratio] 12.5 mg/mg 10-20 [facility] Basophil percentageOrdered B y: Zekwasiluadalgisa Beam on 06-10-2024 Basophils/100 WBC (Bld) 0.6 % 0-1 [facility] Bilirubin, totalOrdered By: shayna Lim on 06-10-2024 Bilirubin [Mass/Vol] 0.30 mg/dL 0.00-1.30 [facility] CBC W/Diff, Automatedon 05-21 Absolute Lymph 2.20 X10 3/uL Normal 0.83-4.51 [facility] Comment on above: Performed By: #### L 100.0100, L500.4050 ####[facility] [address] [place], [place], [id number] Absolute Neut 5.9 X10 3/uL Normal 2.0-7.7 [facility] Comment on above: Performed By: #### L 100.0100, L500.4050 ####[facility] [address] [place], [address] Basophils/100 WBC (Bld) 0.6 % Normal 0-1 [facility] Comment on above: Performed By: #### L 100.0100, L500.4050 ####[facility] [address] [place], [address] Eosinophils/100 WBC (Bld) 0.2 % Normal 0-5 [facility] Comment on above: Performed By: #### L 100.0100, L500.4050 ####[facility] [address] [place], [address] Erythrocyte distribution width (RBC) [Ratio] 14.3 % Normal 11.6-14.6 [facility] Comment on above: Performed By: #### L 100.0100, L500.4050 ####[facility] [address] [place], [address] Hematocrit (Bld) [Volume fraction] 38.5 % Normal 37-47 [facility] Comment on above: Performed By: #### L 100.0100, L500.4050 ####[facility] [address] [place], [address] Hemoglobin (Bld) [Mass/Vol] 12.7 g/dL Normal 12.0-15.0 [facility] Comment on above: Performed By: #### L 100.0100, L500.4050 ####[facility] [address] [place], [address] IG% 0.300 Normal 0.0-0.9 [facility] Comment on above: Result Comment: IG% - Immature Granulocytes (promyelocytes, myelocytes andmetamyelocytes) > 1% indicates that a LEFT SHIFT is Present. Performed By: #### L 100.0100, L500.4050 ####[facility] [address] [place], [address] Lymphocytes/100 WBC (Bld) 24.7 % Normal 19-41 [facility] Comment on above: Performed By: #### L 100.0100, L500.4050 ####[facility] [address] [place], [address] MCH (RBC) [Entitic mass] 26.7 pg Low 27.0-32.0 [facility] Comment on above: Performed By: #### L 100.0100, L500.4050 ####[facility] [address] [place], [address] MCHC (RBC) [Mass/Vol] 33.0 g/dL Normal 32-36 [facility] Comment on above: Performed By: #### L 100.0100, L500.4050 ####[facility] [address] [place], [address] MCV (RBC) [Entitic vol] 81.1 fL Normal 81-99 [facility] Comment on above: Performed By: #### L 100.0100, L500.4050 ####[facility] [address] [place], [address] Monocytes/100 WBC (Bld) 7.4 % Normal 0-10 [facility] Comment on above: Performed By: #### L 100.0100, L500.4050 ####[facility] [address] [place], [address] Neutrophils/100 WBC (Bld) 66.8 % Normal 47-70 [facility] Comment on above: Performed By: #### L 100.0100, L500.4050 ####[facility] [address] [place], [address] Nucleated RBC (Bld) [#/Vol] 0 10*3/uL Normal 0-5 [facility] Comment on above: Performed By: #### L 100.0100, L500.4050 ####[facility] [address] [place], [address] Platelet mean volume (Bld) [Entitic vol] 9.0 fL Normal 6.2-12.0 [facility] Comment on above: Performed By: #### L 100.0100, L500.4050 ####[facility] [address] [place], [address] Platelets (Bld) [#/Vol] 414 10*3/uL Normal 150-450 [facility] Comment on above: Performed By: #### L 100.0100, L500.4050 ####[facility] [address] [place], [address] RBC (Bld) [#/Vol] 4.75 10*6/uL Normal 4.2-5.4 [facility] Comment on above: Performed By: #### L 100.0100, L500.4050 ####[facility] [address] [place], [address] RDW SD 42.1 fl Normal 35.1-43.9 [facility] Comment on above: Performed By: #### L 100.0100, L500.4050 ####[facility] [address] [place], [address] WBC (Bld) [#/Vol] 8.9 10*3/uL Normal 4.4-11.[address] [facility] Comment on above: Performed By: #### L 100.0100, L500.4050 ####[facility] [address] [place], [address] Carbon dioxide, total [Moles /volume] in Central venous bloodOrdered By: Vazquezbulun Beam on 06-10-2024 CO2 [Moles/Vol] 23.3 mmol/L 21.0-32.0 [facility] Chloride assayOrdered By: Vazquez Lim on 06-10-2024 Chloride [Moles/Vol] 104 mmol/L 98-108 [facility] Comprehensive Metabolic Prof ilon 06-10-2024 Albumin [Mass/Vol] 3.9 g/dL Normal 3.5-5.[address] [facility] Comment on above: Performed By: #### L 100.0100, L500.4050 ####[facility] [address] [place], [address] Albumin/Globulin [Mass ratio] 1.2 {ratio} Normal 0.9-2.4 [facility] Comment on above: Performed By: #### L 100.0100, L500.4050 ####[facility] [address] [place], [address] ALK PHOS 64 U/L Normal 35-104 [facility] Comment on above: Performed By: #### L 100.0100, L500.4050 ####[facility] [address] [place], [address] ALT [Catalytic activity/Vol] 28 U/L Normal <=34 [facility] Comment on above: Performed By: #### L 100.0100, L500.4050 ####[facility] [address] [place], [address] AST [Catalytic activity/Vol] 22 U/L Normal <=31 [facility] Comment on above: Performed By: #### L 100.0100, L500.4050 ####[facility] [address] [place], [address] Bilirubin [Mass/Vol] 0.30 mg/dL Normal 0.00-1.30 [facility] Comment on above: Performed By: #### L 100.0100, L500.4050 ####[facility] [address] [place], [address] BUN/CRE 12.5 RATIO Normal 10-20 [facility] Comment on above: Performed By: #### L 100.0100, L500.4050 ####[facility] [address] [place], [address] Calcium [Mass/Vol] 9.4 mg/dL Normal 7.6-11.[address] [facility] Comment on above: Performed By: #### L 100.0100, L500.4050 ####[facility] [address] [place], [address] Chloride [Moles/Vol] 104 mmol/L Normal 98-108 [facility] Comment on above: Performed By: #### L 100.0100, L500.4050 ####[facility] [address] [place], [address] CO2 [Moles/Vol] 23.3 mmol/L Normal 21.0-32.0 [facility] Comment on above: Performed By: #### L 100.0100, L500.4050 ####[facility] [address] [place], [address] Creatinine [Mass/Vol] 0.98 mg/dL Normal 0.70-1.20 [facility] Comment on above: Performed By: #### L 100.0100, L500.4050 ####[facility] [address] [place], [address] GAP 12 Normal 5-15 [facility] Comment on above: Performed By: #### L 100.0100, L500.4050 ####[facility] [address] [place], [address] GFR/1.73 sq M.predicted among non-blacks MDRD (S/P/Bld) [Vol rate/Area] 82 mL/min/{1.73_m2} Normal >60 [facility] Comment on above: Result Comment: mL/m in/1.73m2 CKD-EPI Creatinine Equation (2020) Performed By: #### L 100.0100, L500.4050 ####[facility] [address] [place], [address] Globulin (S) [Mass/Vol] 3.3 g/dL Normal 2.2-4.2 [facility] Comment on above: Performed By: #### L 100.0100, L500.4050 ####[facility] [address] [place], [address] Glucose [Mass/Vol] 120 mg/dL High 70-[address] [facility] Comment on above: Performed By: #### L 100.0100, L500.4050 ####[facility] [address] [place], [address] Potassium [Moles/Vol] 3.9 mmol/L Normal 3.3-5.1 [facility] Comment on above: Performed By: #### L 100.0100, L500.4050 ####[facility] [address] [place], [address] Sodium [Moles/Vol] 138 mmol/L Normal 133-[address] [facility] Comment on above: Performed By: #### L 100.0100, L500.4050 ####[facility] [address] [place], [address] T PROT 7.1 g/dL Normal 5.9-8.4 [facility] Comment on above: Performed By: #### L 100.0100, L500.4050 ####[facility] [address] [place], [address] Urea nitrogen [Mass/Vol] 12 mg/dL Normal 4-19 [facility] Comment on above: Performed By: #### L 100.0100, L500.4050 ####[facility] [address] [place], [address] Eosinophil percentageOrdered By: Karuna Lim on 06-10-2024 Eosinophils/100 WBC (Bld) 0.2 % 0-5 [facility] Erythrocyte distribution wid th ratioOrdered By: Karuna Lim on 06-10-2024 Erythrocyte distribution width (RBC) [Ratio] 14.3 % 11.6-14.6 [facility] Erythrocyte distribution wid th standard deviationOrdered By: kwasiadalgisa Lim on 06-10-2024 Erythrocyte distribution width (RBC) [Ratio] 42.1 fl 35.1-43.9 [facility] Glomerular filtration rate ( GFR) estimation/1.73 sq m using serum, plasma, or whole bOrdered By: kwasiadalgisa Lim on 06-10-2024 GFR/1.73 sq M.predicted among non-blacks MDRD (S/P/Bld) [Vol rate/Area] 82 mL/min/{1.73_m2} >60 [facility] Comment on above: mL/min/1.73m2 CKD-EP I Creatinine Equation (2020) Hematocrit Auto (Bld) [Volum e fraction]Ordered By: [facility] on 06-10-2024 Hematocrit (Bld) [Volume fraction] 38.5 % 37-47 [facility] Hemoglobin measurementOrdere d By: [facility] on 06-10-2024 Hemoglobin (Bld) [Mass/Vol] 12.7 g/dL 12.0-15.0 [facility] Immature granulocytes/100 WB C Auto (Bld)Ordered By: shayna Lim on 06-10-2024 Immature granulocytes/100 WBC (Bld) 0.300 % 0.0-0.9 [facility] Comment on above: IG% - Immature Granu locytes (promyelocytes, myelocytes and metamyelocytes) > 1% indicates that a LEFT SHIFT is Present. Laboratory - Chemistry and C hemistry - challengeOrdered By: kwasiadalgisa Lim on 06-10-2024 AST [Catalytic activity/Vol] 22 U/L <32 [facility] MCV (mean corpuscular volume ) determinationOrdered By: [facility] on 06-10-2024 MCV (RBC) [Entitic vol] 81.1 fL 81-99 [facility] Mean corpuscular hemoglobin (MCH) determinationOrdered By: Paytonlun Beam on 06-10-2024 MCH (RBC) [Entitic mass] 26.7 pg Low 27.0-32.0 [facility] Mean corpuscular hemoglobin concentration (MCHC) determinationOrdered By: Zekwasilun Beam on 06-10-2024 MCHC (RBC) [Mass/Vol] 33.0 g/dL 32-36 [facility] Mean platelet volume determi nationOrdered By: Zekwasilun Beam on 06-10-2024 Platelet mean volume (Bld) [Entitic vol] 9.0 fL 6.2-12.0 [facility] Monocyte percentageOrdered B y: Karuna Beam on 06-10-2024 Monocytes/100 WBC (Bld) 7.4 % 0-10 [facility] Neutrophil percentageOrdered By: Karuna Beam on 06-10-2024 Neutrophils/100 WBC (Bld) 66.8 % 47-70 [facility] No Panel InformationOrdered By: Karuna Beam on 06-10-2024 22 U/L <32 [facility] Nucleated red blood cell per centageOrdered By: Karuna Beam on 06-10-2024 Nucleated RBC/100 WBC (Bld) [Ratio] 0 % 0-5 [facility] Platelet countOrdered By: Vazquez Lim on 06-10-2024 Platelets (Bld) [#/Vol] 414 10*3/uL 150-450 [facility] Potassium measurement (mass/ volume)Ordered By: Karuna Lim on 06-10-2024 Potassium (Unsp spec) [Mass/Vol] 3.9 mmol/L 3.3-5.1 [facility] RBC Auto (Bld) [#/Vol]Ordere d By: Karuna Beam on 06-10-2024 RBC (Bld) [#/Vol] 4.75 10*6/uL 4.2-5.4 [facility] Serum creatinine measurement (mass/volume)Ordered By: Karuna Lim on 06-10-2024 Creatinine [Mass/Vol] 0.98 mg/dL 0.70-1.20 [facility] Serum globulin measurementOr dered By: Karuna Lim on 06-10-2024 Globulin (S) [Mass/Vol] 3.3 g/dL 2.2-4.2 [facility] Serum glucose measurement (m ass/volume)Ordered By: Karuna Lim on 06-10-2024 Glucose [Mass/Vol] 120 mg/dL High 70-[address] [facility] Serum or plasma alanine godinez otransferase (ALT) measurementOrdered By: Karuna Lim on 06-10-2024 ALT [Catalytic activity/Vol] 28 U/L <35 [facility] Serum or plasma albumin cherelle urement (mass/volume)Ordered By: Karuna Lim on 06-10-2024 Albumin [Mass/Vol] 3.9 g/dL 3.5-5.[address] [facility] Serum or plasma albumin/glob ulin mass ratioOrdered By: Karuna Lim on 06-10-2024 Albumin/Globulin [Mass ratio] 1.2 {ratio} 0.9-2.4 [facility] Serum or plasma alkaline rohit sphatase measurementOrdered By: Karuna Lim on 06-10-2024 ALP [Catalytic activity/Vol] 64 U/L 35-104 [facility] Serum or plasma calcium cherelle urement (mass/volume)Ordered By: Karuna Lim on 06-10-2024 Calcium [Mass/Vol] 9.4 mg/dL 7.6-11.[address] [facility] Serum or plasma urea nitroge n measurement (mass/volume)Ordered By: Karuna Lim on 06-10-2024 Urea nitrogen [Mass/Vol] 12 mg/dL 4-19 [facility] Sodium levelOrdered By: Payton Lim on 06-10-2024 Sodium [Moles/Vol] 138 mmol/L 133-[address] [facility] Total proteinOrdered By: Juventino Lim on 06-10-2024 Protein [Mass/Vol] 7.1 g/dL 5.9-8.[address] [facility] White blood cell (WBC) count Ordered By: Karuna Lim on 06-10-2024 WBC (Bld) [#/Vol] 8.9 10*3/uL 4.4-11.[address] [facility] 12 Lead EKGon 06-03-2024 12 Lead EKG Normal [facility] Abdomen Limitedon 06-03-2024 Abdomen Limited Normal [facility] Absolute lymphocyte countOrd ered By: Jaylon Galicia on 06-03-2024 Lymphocytes Auto (Unsp spec) [#/Vol] 1.66 10*3/uL 0.83-4.51 [facility] Absolute neutrophil countOrd ered By: Jaylon Galicia on 06-03-2024 Neutrophils (Bld) [#/Vol] 4.2 10*3/uL 2.0-7.7 [facility] Anion gap in Serum or Plasma Ordered By: Jaylon Galicia on 06-03-2024 Anion gap [Moles/Vol] 12 mmol/L 07-03 [facility] Automated lymphocyte count a s percentage of total leukocytesOrdered By: Jaylon Galicia on 06-03-2024 Lymphocytes/100 WBC Auto (Unsp spec) 25.5 % [facility] BUN/creatinine ratioOrdered By: Jaylon Galicia on 06-03-2024 Urea nitrogen/Creatinine [Mass ratio] 17.9 mg/mg - [facility] Basic Metabolic Profile (BMP )on 06-03-2024 BUN/CRE 17.9 RATIO Normal - [facility] Comment on above: Performed By: #### L 100.0100, L500.2500, L501.4021 ####[facility] [address] [place], [address] Calcium [Mass/Vol] 8.9 mg/dL Normal 7.6-11.[address] [facility] Comment on above: Performed By: #### L 100.0100, L500.2500, L501.4021 ####[facility] [address] [place], [address] Chloride [Moles/Vol] 105 mmol/L Normal 98-108 [facility] Comment on above: Performed By: #### L 100.0100, L500.2500, L501.4021 ####[facility] [address] [place], [address] CO2 [Moles/Vol] 22.0 mmol/L Normal 21.0-32.0 [facility] Comment on above: Performed By: #### L 100.0100, L500.2500, L501.4021 ####[facility] [address] [place], [address] Creatinine [Mass/Vol] 0.53 mg/dL Low 0.70-1.20 [facility] Comment on above: Performed By: #### L 100.0100, L500.2500, L501.4021 ####[facility] [address] [place], [address] ECRCL 225.17 ml/min Normal 50-250 [facility] Comment on above: Performed By: #### L 100.0100, L500.2500, L501.4021 ####[facility] [address] [place], [address] GAP 12 Normal 5-15 [facility] Comment on above: Performed By: #### L 100.0100, L500.2500, L501.4021 ####[facility] [address] [place], [address] GFR/1.73 sq M.predicted among non-blacks MDRD (S/P/Bld) [Vol rate/Area] 130 mL/min/{1.73_m2} Normal >60 [facility] Comment on above: Result Comment: mL/m in/1.73m2 CKD-EPI Creatinine Equation (2020) Performed By: #### L 100.0100, L500.2500, L501.4021 ####[facility] [address] [place], [address] Glucose [Mass/Vol] 118 mg/dL High 70-[address] [facility] Comment on above: Performed By: #### L 100.0100, L500.2500, L501.4021 ####[facility] [address] [place], [address] Potassium [Moles/Vol] 3.5 mmol/L Normal 3.3-5.1 [facility] Comment on above: Performed By: #### L 100.0100, L500.2500, L501.4021 ####[facility] [address] [place], [address] Sodium [Moles/Vol] 139 mmol/L Normal 133-[address] [facility] Comment on above: Performed By: #### L 100.0100, L500.2500, L501.4021 ####[facility] [address] [place], [address] Urea nitrogen [Mass/Vol] 9 mg/dL Normal 4-19 [facility] Comment on above: Performed By: #### L 100.0100, L500.2500, L501.4021 ####[facility] [address] [place], [address] Basophil percentageOrdered B y: Jaylon Grayson on 06-03-2024 Basophils/100 WBC (Bld) 0.5 % 0-1 [facility] CBC W/Diff, Automatedon 05-20 Absolute Lymph 1.66 X10 3/uL Normal 0.83-4.51 [facility] Comment on above: Performed By: #### L 100.0100, L500.2500, L501.4021 ####[facility] [address] [place], [address] Absolute Neut 4.2 X10 3/uL Normal 2.0-7.7 [facility] Comment on above: Performed By: #### L 100.0100, L500.2500, L501.4021 ####[facility] [address] [place], [address] Basophils/100 WBC (Bld) 0.5 % Normal 0-1 [facility] Comment on above: Performed By: #### L 100.0100, L500.2500, L501.4021 ####[facility] [address] [place], [address] Eosinophils/100 WBC (Bld) 0.5 % Normal 0-5 [facility] Comment on above: Performed By: #### L 100.0100, L500.2500, L501.4021 ####[facility] [address] [place], [address] Erythrocyte distribution width (RBC) [Ratio] 14.3 % Normal 11.6-14.6 [facility] Comment on above: Performed By: #### L 100.0100, L500.2500, L501.4021 ####[facility] [address] [place], [address] Hematocrit (Bld) [Volume fraction] 36.7 % Low 37-47 [facility] Comment on above: Performed By: #### L 100.0100, L500.2500, L501.4021 ####[facility] [address] [place], [address] Hemoglobin (Bld) [Mass/Vol] 12.1 g/dL Normal 12.0-15.0 [facility] Comment on above: Performed By: #### L 100.0100, L500.2500, L501.4021 ####[facility] [address] [place], [address] IG% 0.300 Normal 0.0-0.9 [facility] Comment on above: Result Comment: IG% - Immature Granulocytes (promyelocytes, myelocytes andmetamyelocytes) > 1% indicates that a LEFT SHIFT is Present. Performed By: #### L 100.0100, L500.2500, L501.4021 ####[facility] [address] [place], [address] Lymphocytes/100 WBC (Bld) 25.5 % Normal 19-41 [facility] Comment on above: Performed By: #### L 100.0100, L500.2500, L501.4021 ####[facility] [address] [place], [address] MCH (RBC) [Entitic mass] 26.7 pg Low 27.0-32.0 [facility] Comment on above: Performed By: #### L 100.0100, L500.2500, L501.4021 ####[facility] [address] [place], [address] MCHC (RBC) [Mass/Vol] 33.0 g/dL Normal 32-36 [facility] Comment on above: Performed By: #### L 100.0100, L500.2500, L501.4021 ####[facility] [address] [place], [address] MCV (RBC) [Entitic vol] 81.0 fL Normal 81-99 [facility] Comment on above: Performed By: #### L 100.0100, L500.2500, L501.4021 ####[facility] [address] [place], [address] Monocytes/100 WBC (Bld) 8.9 % Normal 0-10 [facility] Comment on above: Performed By: #### L 100.0100, L500.2500, L501.4021 ####[facility] [address] [place], [address] Neutrophils/100 WBC (Bld) 64.3 % Normal 47-70 [facility] Comment on above: Performed By: #### L 100.0100, L500.2500, L501.4021 ####[facility] [address] [place], [address] Nucleated RBC (Bld) [#/Vol] 0 10*3/uL Normal 0-5 [facility] Comment on above: Performed By: #### L 100.0100, L500.2500, L501.4021 ####[facility] [address] [place], [address] Platelet mean volume (Bld) [Entitic vol] 9.8 fL Normal 6.2-12.0 [facility] Comment on above: Performed By: #### L 100.0100, L500.2500, L501.4021 ####[facility] [address] [place], [address] Platelets (Bld) [#/Vol] 347 10*3/uL Normal 150-450 [facility] Comment on above: Performed By: #### L 100.0100, L500.2500, L501.4021 ####[facility] [address] [place], [address] RBC (Bld) [#/Vol] 4.53 10*6/uL Normal 4.2-5.4 [facility] Comment on above: Performed By: #### L 100.0100, L500.2500, L501.4021 ####[facility] [address] [place], [address] RDW SD 42.2 fl Normal 35.1-43.9 [facility] Comment on above: Performed By: #### L 100.0100, L500.2500, L501.4021 ####[facility] [address] [place], [address] WBC (Bld) [#/Vol] 6.5 10*3/uL Normal 4.4-11.[address] [facility] Comment on above: Performed By: #### L 100.0100, L500.2500, L501.4021 ####[facility] [address] [place], [address] CTA Chest W/WO Contraston CTA Chest W/WO Contrast Normal [facility] CTA Head AND Neck W/ Contras ton 06-03-2024 CTA Head AND Neck W/ Contrast Normal [facility] Carbon dioxide, total [Moles /volume] in Central venous bloodOrdered By: Jaylon Galicia on 06-03-2024 CO2 [Moles/Vol] 22.0 mmol/L 21.0-32.0 [facility] Chloride assayOrdered By: Blanca Galicia on 06-03-2024 Chloride [Moles/Vol] 105 mmol/L 98-108 [facility] Emergency Department Summary on 06-03-2024 Emergency Department Summary Normal [facility] Eosinophil percentageOrdered By: Jaylon Galicia on 06-03-2024 Eosinophils/100 WBC (Bld) 0.5 % 0-5 [facility] Erythrocyte distribution wid th (RBC) [Ratio]Ordered By: Jaylon Galicia on 06-03-2024 Erythrocyte distribution width (RBC) [Entitic vol] 42.2 fL 35.1-43.9 [facility] Erythrocyte distribution wid th ratioOrdered By: Jaylon Galicia on 06-03-2024 Erythrocyte distribution width (RBC) [Ratio] 14.3 % 11.6-14.6 [facility] Erythrocyte distribution wid th standard deviationOrdered By: Jaylon Galicia on 06-03-2024 Erythrocyte distribution width (RBC) [Ratio] 42.2 fl 35.1-43.9 [facility] Estimation of creatinine thad aranceOrdered By: Jaylon Galicia on 06-03-2024 Estimated Creatinine Clearance Calc 225.17 ml/min 50-250 [facility] GFR/1.73 sq M.predicted janet g non-blacks MDRD (S/P/Bld) [Vol rate/Area]Ordered By: Jaylon Galicia on 06-03-2024 Estimated GFR (MDRD) Non-Af Amer 130 >60 [facility] Comment on above: mL/min/1.73m2 CKD-EP I Creatinine Equation (2020) Glomerular filtration rate ( GFR) estimation/1.73 sq m using serum, plasma, or whole bOrdered By: Jaylon Galicia on 06-03-2024 GFR/1.73 sq M.predicted among non-blacks MDRD (S/P/Bld) [Vol rate/Area] 130 mL/min/{1.73_m2} >60 [facility] Comment on above: mL/min/1.73m2 CKD-EP I Creatinine Equation (2020) Hematocrit Auto (Bld) [Volum e fraction]Ordered By: Jaylon Galicia on 06-03-2024 Hematocrit (Bld) [Volume fraction] 36.7 % Low 37-47 [facility] Hemoglobin measurementOrdere d By: Jaylon Galicia on 06-03-2024 Hemoglobin (Bld) [Mass/Vol] 12.1 g/dL 12.0-15.0 [facility] Immature granulocytes/100 WB C Auto (Bld)Ordered By: Jaylon Galicia on 06-03-2024 Immature granulocytes/100 WBC (Bld) 0.300 % 0.0-0.9 [facility] Comment on above: IG% - Immature Granu locytes (promyelocytes, myelocytes and metamyelocytes) > 1% indicates that a LEFT SHIFT is Present. L499.0042on 06-03-2024 Trop T High Sen < 6 Normal <=14 [facility] Comment on above: Performed By: #### L 499.0042 ####[facility] [address] [place], [address] L499.0043on 06-03-2024 Trop T High Sen Normal <=14 [facility] Comment on above: Result Comment: NATHAN ENT DISCHARGED Performed By: #### L 499.0043 ####[facility] [address] [place], [address] L501.4021on 06-03-2024 Trop T High Sen < 6 Normal <=14 [facility] Comment on above: Performed By: #### L 100.0100, L500.2500, L501.4021 ####[facility] [address] [place], [address] Lymphocytes Auto (Unsp spec) [#/Vol]Ordered By: Jaylon Galicia on 06-03-2024 Lymphocytes (Bld) [#/Vol] 1.66 10*3/uL 0.83-4.51 [facility] Lymphocytes/100 WBC Auto (Un sp spec)Ordered By: Jaylon Galicia on 06-03-2024 Lymphocytes/100 WBC (Bld) 25.5 % 19-41 [facility] MCV (mean corpuscular volume ) determinationOrdered By: Jaylon Galiica on 06-03-2024 MCV (RBC) [Entitic vol] 81.0 fL 81-99 [facility] Mean corpuscular hemoglobin (MCH) determinationOrdered By: Jaylon Galicia on 06-03-2024 MCH (RBC) [Entitic mass] 26.7 pg Low 27.0-32.0 [facility] Mean corpuscular hemoglobin concentration (MCHC) determinationOrdered By: Jaylon Galicia on 06-03-2024 MCHC (RBC) [Mass/Vol] 33.0 g/dL 32-36 [facility] Mean platelet volume determi nationOrdered By: Jaylon Galicia on 06-03-2024 Platelet mean volume (Bld) [Entitic vol] 9.8 fL 6.2-12.0 [facility] Monocyte percentageOrdered B y: Jaylon Galicia on 06-03-2024 Monocytes/100 WBC (Bld) 8.9 % 0-10 [facility] Neutrophil percentageOrdered By: Jaylon Galicia on 06-03-2024 Neutrophils/100 WBC (Bld) 64.3 % 47-70 [facility] Nucleated red blood cell per centageOrdered By: Jaylon Galicia on 06-03-2024 Nucleated RBC/100 WBC (Bld) [Ratio] 0 % 0-5 [facility] Platelet countOrdered By: Blanca Galicia on 06-03-2024 Platelets (Bld) [#/Vol] 347 10*3/uL 150-450 [facility] Potassium (Unsp spec) [Mass/ Vol]Ordered By: Jaylon Galicia on 06-03-2024 Potassium [Moles/Vol] 3.5 mmol/L 3.3-5.1 [facility] Potassium measurement (mass/ volume)Ordered By: Jaylon Galicia on 06-03-2024 Potassium (Unsp spec) [Mass/Vol] 3.5 mmol/L 3.3-5.1 [facility] RBC Auto (Bld) [#/Vol]Ordere d By: Jaylon Galicia on 06-03-2024 RBC (Bld) [#/Vol] 4.53 10*6/uL 4.2-5.4 [facility] Serum creatinine measurement (mass/volume)Ordered By: Jaylon Galicia on 06-03-2024 Creatinine [Mass/Vol] 0.53 mg/dL Low 0.70-1.20 [facility] Serum glucose measurement (m ass/volume)Ordered By: Jaylon Galicia on 06-03-2024 Glucose [Mass/Vol] 118 mg/dL High 70-[address] [facility] Serum or plasma calcium cherelle urement (mass/volume)Ordered By: Jaylon Galicia on 06-03-2024 Calcium [Mass/Vol] 8.9 mg/dL 7.6-11.[address] [facility] Serum or plasma urea nitroge n measurement (mass/volume)Ordered By: Jaylon Galicia on 06-03-2024 Urea nitrogen [Mass/Vol] 9 mg/dL 4-19 [facility] Sodium levelOrdered By: Tomy Galicia on 06-03-2024 Sodium [Moles/Vol] 139 mmol/L 133-[address] [facility] Troponin T.cardiac High sens itivity method [Mass/Vol]Ordered By: Jaylon Galicia on 06-03-2024 Troponin T High Sensitivity 2 Hour < 6 ng/L <14 [facility] Troponin T High Sensitivity < 6 ng/L <14 [facility] Troponin T.cardiac [Mass/vol ume] in Serum or Plasma by High sensitivity methodOrdered By: Jaylon Galicia on 06-03-2024 Troponin T.cardiac High sensitivity method [Mass/Vol] < 6 ng/L <14 [facility] Troponin T.cardiac High sensitivity method [Mass/Vol] < 6 ng/L <14 [facility] White blood cell (WBC) count Ordered By: Jaylon Galicia on 06-03-2024 WBC (Bld) [#/Vol] 6.5 10*3/uL 4.4-11.[address] [facility] Cardiology Visit Reporton Cardiology Visit Report Normal [facility] Anion gap in Serum or Plasma Ordered By: Karina Guerra on 05-23-2024 Anion gap [Moles/Vol] 11 mmol/L 5-15 [facility] BUN/creatinine ratioOrdered By: Karina Guerra on 05-23-2024 Urea nitrogen/Creatinine [Mass ratio] 16.1 mg/mg 10-20 [facility] Bilirubin, totalOrdered By: Karina Guerra on 05-23-2024 Bilirubin [Mass/Vol] 0.22 mg/dL 0.00-1.30 [facility] Carbon dioxide, total [Moles /volume] in Central venous bloodOrdered By: Karina Guerra on 05-23-2024 CO2 [Moles/Vol] 21.4 mmol/L 21.0-32.0 [facility] Chloride assayOrdered By: Blair Guerra on 05-23-2024 Chloride [Moles/Vol] 106 mmol/L 98-108 [facility] Comprehensive Metabolic Prof ilon 05-23-2024 Albumin [Mass/Vol] 3.8 g/dL Normal 3.5-5.[address] [facility] Comment on above: Performed By: #### L 501.9060, L500.4050, L501.9520 ####[facility] [address] [place], [address] Albumin/Globulin [Mass ratio] 1.1 {ratio} Normal 0.9-2.4 [facility] Comment on above: Performed By: #### L 501.9060, L500.4050, L501.9520 ####[facility] [address] [place], [address] ALK PHOS 58 U/L Normal 35-104 [facility] Comment on above: Performed By: #### L 501.9060, L500.4050, L501.9520 ####[facility] [address] [place], [address] ALT [Catalytic activity/Vol] 32 U/L Normal <=34 [facility] Comment on above: Performed By: #### L 501.9060, L500.4050, L501.9520 ####[facility] [address] [place], [address] AST [Catalytic activity/Vol] 23 U/L Normal <=31 [facility] Comment on above: Performed By: #### L 501.9060, L500.4050, L501.9520 ####[facility] [address] [place], [address] Bilirubin [Mass/Vol] 0.22 mg/dL Normal 0.00-1.30 [facility] Comment on above: Performed By: #### L 501.9060, L500.4050, L501.9520 ####[facility] [address] [place], [address] BUN/CRE 16.1 RATIO Normal 10-20 [facility] Comment on above: Performed By: #### L 501.9060, L500.4050, L501.9520 ####[facility] [address] [place], [address] Calcium [Mass/Vol] 9.4 mg/dL Normal 7.6-11.[address] [facility] Comment on above: Performed By: #### L 501.9060, L500.4050, L501.9520 ####[facility] [address] [place], [address] Chloride [Moles/Vol] 106 mmol/L Normal 98-108 [facility] Comment on above: Performed By: #### L 501.9060, L500.4050, L501.9520 ####[facility] [address] [place], [address] CO2 [Moles/Vol] 21.4 mmol/L Normal 21.0-32.0 [facility] Comment on above: Performed By: #### L 501.9060, L500.4050, L501.9520 ####[facility] [address] [place], [address] Creatinine [Mass/Vol] 0.53 mg/dL Low 0.70-1.20 [facility] Comment on above: Performed By: #### L 501.9060, L500.4050, L501.9520 ####[facility] [address] [place], [address] GAP 11 Normal 5-15 [facility] Comment on above: Performed By: #### L 501.9060, L500.4050, L501.9520 ####[facility] [address] [place], [address] GFR/1.73 sq M.predicted among non-blacks MDRD (S/P/Bld) [Vol rate/Area] 130 mL/min/{1.73_m2} Normal >60 [facility] Comment on above: Result Comment: mL/m in/1.73m2 CKD-EPI Creatinine Equation (2020) Performed By: #### L 501.9060, L500.4050, L501.9520 ####[facility] [address] [place], [address] Globulin (S) [Mass/Vol] 3.4 g/dL Normal 2.2-4.2 [facility] Comment on above: Performed By: #### L 501.9060, L500.4050, L501.9520 ####[facility] [address] [place], [address] Glucose [Mass/Vol] 114 mg/dL High 70-[address] [facility] Comment on above: Performed By: #### L 501.9060, L500.4050, L501.9520 ####[facility] [address] [place], [address] Potassium [Moles/Vol] 4.2 mmol/L Normal 3.3-5.1 [facility] Comment on above: Performed By: #### L 501.9060, L500.4050, L501.9520 ####[facility] [address] [place], [address] Sodium [Moles/Vol] 138 mmol/L Normal 133-[address] [facility] Comment on above: Performed By: #### L 501.9060, L500.4050, L501.9520 ####[facility] [address] [place], [address] T PROT 7.1 g/dL Normal 5.9-8.4 [facility] Comment on above: Performed By: #### L 501.9060, L500.4050, L501.9520 ####[facility] [address] [place], [address] Urea nitrogen [Mass/Vol] 9 mg/dL Normal 4-19 [facility] Comment on above: Performed By: #### L 501.9060, L500.4050, L501.9520 ####[facility] [address] [place], [address] GFR/1.73 sq M.predicted janet g non-blacks MDRD (S/P/Bld) [Vol rate/Area]Ordered By: Karina Guerra on 05-23-2024 Estimated GFR (MDRD) Non-Af Amer 130 >60 [facility] Comment on above: mL/min/1.73m2 CKD-EP I Creatinine Equation (2020) Glomerular filtration rate ( GFR) estimation/1.73 sq m using serum, plasma, or whole bOrdered By: Karina Guerra on 05-23-2024 GFR/1.73 sq M.predicted among non-blacks MDRD (S/P/Bld) [Vol rate/Area] 130 mL/min/{1.73_m2} >60 [facility] Comment on above: mL/min/1.73m2 CKD-EP I Creatinine Equation (2020) Laboratory - Chemistry and C hemistry - challengeOrdered By: Karina Guerra on 05-23-2024 AST [Catalytic activity/Vol] 23 U/L <32 [facility] Lithiumon 05-23-2024 LI 0.64 mmol/L Normal 0.60-1.20 [facility] Comment on above: Order Comment: [id number] Performed By: #### L 501.9060, L500.4050, L501.9520 ####[facility] [address] [place], [address] [place] levelOrdered By: Debora Guerra on 05-23-2024 [place] Level 0.64 mmol/L 0.60-1.20 [facility] No Panel InformationOrdered By: Karina Guerra on 05-23-2024 23 U/L <32 [facility] Potassium (Unsp spec) [Mass/ Vol]Ordered By: Karina Guerra on 05-23-2024 Potassium [Moles/Vol] 4.2 mmol/L 3.3-5.1 [facility] Potassium measurement (mass/ volume)Ordered By: Karina Guerra on 05-23-2024 Potassium (Unsp spec) [Mass/Vol] 4.2 mmol/L 3.3-5.1 [facility] Serum creatinine measurement (mass/volume)Ordered By: Karina Guerra on 05-23-2024 Creatinine [Mass/Vol] 0.53 mg/dL Low 0.70-1.20 [facility] Serum globulin measurementOr dered By: Karina Guerra on 05-23-2024 Globulin (S) [Mass/Vol] 3.4 g/dL 2.2-4.2 [facility] Serum glucose measurement (m ass/volume)Ordered By: Karina Guerra on 05-23-2024 Glucose [Mass/Vol] 114 mg/dL High 70-[address] [facility] Serum or plasma alanine godinez otransferase (ALT) measurementOrdered By: Karina Guerra on 05-23-2024 ALT [Catalytic activity/Vol] 32 U/L <35 [facility] Serum or plasma albumin cherelle urement (mass/volume)Ordered By: Karina Guerra on 05-23-2024 Albumin [Mass/Vol] 3.8 g/dL 3.5-5.[address] [facility] Serum or plasma albumin/glob ulin mass ratioOrdered By: Karina Guerra on 05-23-2024 Albumin/Globulin [Mass ratio] 1.1 {ratio} 0.9-2.4 [facility] Serum or plasma alkaline rohit sphatase measurementOrdered By: Karina Guerra on 05-23-2024 ALP [Catalytic activity/Vol] 58 U/L 35-104 [facility] Serum or plasma calcium cherelle urement (mass/volume)Ordered By: Karina Guerra on 05-23-2024 Calcium [Mass/Vol] 9.4 mg/dL 7.6-11.[address] [facility] Serum or plasma urea nitroge n measurement (mass/volume)Ordered By: Karina Guerra on 05-23-2024 Urea nitrogen [Mass/Vol] 9 mg/dL 4-19 [facility] Sodium levelOrdered By: Mary Guerra on 05-23-2024 Sodium [Moles/Vol] 138 mmol/L 133-[address] [facility] TSH DL <= 0.005 mIU/L QnOrde red By: Karina Guerra on 05-23-2024 Thyroid Stimulating Hormone (TSH) 2.310 uIU/mL 0.300-4.200 [facility] TSH Qn 2.310 uIU/mL 0.300-4.200 [facility] Thyroid Stim Hormone (TSH)on 05-23-2024 TSH 2.310 uIU/mL Normal 0.300-4.200 [facility] Comment on above: Performed By: #### L 501.9060, L500.4050, L501.9520 ####[facility] [address] [place], [place], [id number] Total proteinOrdered By: Debora Guerra on 05-23-2024 Protein [Mass/Vol] 7.1 g/dL 5.9-8.[address] [facility] Emergency Department Summary on 05-15-2024 Emergency Department Summary Normal [facility] L499.0043on 05-15-2024 Trop T High Sen Normal <=14 [facility] Comment on above: Result Comment: Canc elled via OM: Order cancelled - Patient discharged Performed By: #### L 499.0043 ####[facility] [address] [place], [address] 12 Lead EKGon 05-14-2024 12 Lead EKG Normal [facility] Absolute lymphocyte countOrd ered By: ED PROVIDER on 05-14-2024 Lymphocytes Auto (Unsp spec) [#/Vol] 2.55 10*3/uL 0.83-4.51 [facility] Absolute neutrophil countOrd ered By: ED PROVIDER on 05-14-2024 Neutrophils (Bld) [#/Vol] 4.8 10*3/uL 2.0-7.7 [facility] Anion gap in Serum or Plasma Ordered By: Stan Lin on 05-14-2024 Anion gap [Moles/Vol] 11 mmol/L 5-15 [facility] Automated lymphocyte count a s percentage of total leukocytesOrdered By: ED PROVIDER on 05-14-2024 Lymphocytes/100 WBC Auto (Unsp spec) 31.2 % 19-41 [facility] BUN/creatinine ratioOrdered By: Stan Lin on 05-14-2024 Urea nitrogen/Creatinine [Mass ratio] 20.0 mg/mg 10- [facility] Basic Metabolic Profile (BMP )on 05-14-2024 BUN/CRE 20.0 RATIO Normal - [facility] Comment on above: Performed By: #### L 100.0100, L501.4021, L500.2500 ####[facility] [address] [place], [address] Calcium [Mass/Vol] 9.5 mg/dL Normal 7.6-11.[address] [facility] Comment on above: Performed By: #### L 100.0100, L501.4021, L500.2500 ####[facility] [address] [place], [address] Chloride [Moles/Vol] 105 mmol/L Normal 98-108 [facility] Comment on above: Performed By: #### L 100.0100, L501.4021, L500.2500 ####[facility] [address] [place], [address] CO2 [Moles/Vol] 20.5 mmol/L Low 21.0-32.0 [facility] Comment on above: Performed By: #### L 100.0100, L501.4021, L500.2500 ####[facility] [address] [place], [address] Creatinine [Mass/Vol] 0.73 mg/dL Normal 0.70-1.20 [facility] Comment on above: Performed By: #### L 100.0100, L501.4021, L500.2500 ####[facility] [address] [place], [address] ECRCL 161.90 ml/min Normal 50-250 [facility] Comment on above: Performed By: #### L 100.0100, L501.4021, L500.2500 ####[facility] [address] [place], [address] GAP 11 Normal 5-15 [facility] Comment on above: Performed By: #### L 100.0100, L501.4021, L500.2500 ####[facility] [address] [place], [address] GFR/1.73 sq M.predicted among non-blacks MDRD (S/P/Bld) [Vol rate/Area] 116 mL/min/{1.73_m2} Normal >60 [facility] Comment on above: Result Comment: mL/m in/1.73m2 CKD-EPI Creatinine Equation (2020) Performed By: #### L 100.0100, L501.4021, L500.2500 ####[facility] [address] [place], [address] Glucose [Mass/Vol] 124 mg/dL High 70-[address] [facility] Comment on above: Performed By: #### L 100.0100, L501.4021, L500.2500 ####[facility] [address] [place], [address] Potassium [Moles/Vol] 4.1 mmol/L Normal 3.3-5.1 [facility] Comment on above: Performed By: #### L 100.0100, L501.4021, L500.2500 ####[facility] [address] [place], [address] Sodium [Moles/Vol] 136 mmol/L Normal 133-[address] [facility] Comment on above: Performed By: #### L 100.0100, L501.4021, L500.2500 ####[facility] [address] [place], [address] Urea nitrogen [Mass/Vol] 15 mg/dL Normal 4-19 [facility] Comment on above: Performed By: #### L 100.0100, L501.4021, L500.2500 ####[facility] [address] [place], [address] Basophil percentageOrdered B y: ED PROVIDER on 05-14-2024 Basophils/100 WBC (Bld) 0.4 % 0-1 [facility] CBC W/Diff, Automatedon - Absolute Lymph 2.55 X10 3/uL Normal 0.83-4.51 [facility] Comment on above: Performed By: #### L 100.0100, L501.4021, L500.2500 ####[facility] [address] [place], [address] Absolute Neut 4.8 X10 3/uL Normal 2.0-7.7 [facility] Comment on above: Performed By: #### L 100.0100, L501.4021, L500.2500 ####[facility] [address] [place], [address] Basophils/100 WBC (Bld) 0.4 % Normal 0-1 [facility] Comment on above: Performed By: #### L 100.0100, L501.4021, L500.2500 ####[facility] [address] [place], [address] Eosinophils/100 WBC (Bld) 0.4 % Normal 0-5 [facility] Comment on above: Performed By: #### L 100.0100, L501.4021, L500.2500 ####[facility] [address] [place], [address] Erythrocyte distribution width (RBC) [Ratio] 14.5 % Normal 11.6-14.6 [facility] Comment on above: Performed By: #### L 100.0100, L501.4021, L500.2500 ####[facility] [address] [place], [address] Hematocrit (Bld) [Volume fraction] 39.4 % Normal 37-47 [facility] Comment on above: Performed By: #### L 100.0100, L501.4021, L500.2500 ####[facility] [address] [place], [address] Hemoglobin (Bld) [Mass/Vol] 12.7 g/dL Normal 12.0-15.0 [facility] Comment on above: Performed By: #### L 100.0100, L501.4021, L500.2500 ####[facility] [address] [place], [address] IG% 0.100 Normal 0.0-0.9 [facility] Comment on above: Result Comment: IG% - Immature Granulocytes (promyelocytes, myelocytes andmetamyelocytes) > 1% indicates that a LEFT SHIFT is Present. Performed By: #### L 100.0100, L501.4021, L500.2500 ####[facility] [address] [place], [address] Lymphocytes/100 WBC (Bld) 31.2 % Normal 19-41 [facility] Comment on above: Performed By: #### L 100.0100, L501.4021, L500.2500 ####[facility] [address] [place], [address] MCH (RBC) [Entitic mass] 26.9 pg Low 27.0-32.0 [facility] Comment on above: Performed By: #### L 100.0100, L501.4021, L500.2500 ####[facility] [address] [place], [address] MCHC (RBC) [Mass/Vol] 32.2 g/dL Normal 32-36 [facility] Comment on above: Performed By: #### L 100.0100, L501.4021, L500.2500 ####[facility] [address] [place], [address] MCV (RBC) [Entitic vol] 83.5 fL Normal 81-99 [facility] Comment on above: Performed By: #### L 100.0100, L501.4021, L500.2500 ####[facility] [address] [place], [address] Monocytes/100 WBC (Bld) 9.0 % Normal 0-10 [facility] Comment on above: Performed By: #### L 100.0100, L501.4021, L500.2500 ####[facility] [address] [place], [address] Neutrophils/100 WBC (Bld) 58.9 % Normal 47-70 [facility] Comment on above: Performed By: #### L 100.0100, L501.4021, L500.2500 ####[facility] [address] [place], [address] Nucleated RBC (Bld) [#/Vol] 0 10*3/uL Normal 0-5 [facility] Comment on above: Performed By: #### L 100.0100, L501.4021, L500.2500 ####[facility] [address] [place], [address] Platelet mean volume (Bld) [Entitic vol] 9.0 fL Normal 6.2-12.0 [facility] Comment on above: Performed By: #### L 100.0100, L501.4021, L500.2500 ####[facility] [address] [place], [address] Platelets (Bld) [#/Vol] 374 10*3/uL Normal 150-450 [facility] Comment on above: Performed By: #### L 100.0100, L501.4021, L500.2500 ####[facility] [address] [place], [address] RBC (Bld) [#/Vol] 4.72 10*6/uL Normal 4.2-5.4 [facility] Comment on above: Performed By: #### L 100.0100, L501.4021, L500.2500 ####[facility] [address] [place], [address] RDW SD 43.8 fl Normal 35.1-43.9 [facility] Comment on above: Performed By: #### L 100.0100, L501.4021, L500.2500 ####[facility] [address] [place], [address] WBC (Bld) [#/Vol] 8.2 10*3/uL Normal 4.4-11.[address] [facility] Comment on above: Performed By: #### L 100.0100, L501.4021, L500.2500 ####[facility] [address] [place], [address] Carbon dioxide, total [Moles /volume] in Central venous bloodOrdered By: Stan Lin on 05-14-2024 CO2 [Moles/Vol] 20.5 mmol/L Low 21.0-32.0 [facility] Chest 1 View (Portable)on Chest 1 View (Portable) Normal [facility] Chloride assayOrdered By: Doroteo Lin on 05-14-2024 Chloride [Moles/Vol] 105 mmol/L 98-108 [facility] Eosinophil percentageOrdered By: ED PROVIDER on 05-14-2024 Eosinophils/100 WBC (Bld) 0.4 % 0-5 [facility] Erythrocyte distribution wid th ratioOrdered By: ED PROVIDER on 05-14-2024 Erythrocyte distribution width (RBC) [Ratio] 14.5 % 11.6-14.6 [facility] Erythrocyte distribution wid th standard deviationOrdered By: ED PROVIDER on 05-14-2024 Erythrocyte distribution width (RBC) [Entitic vol] 43.8 fL 35.1-43.9 [facility] Erythrocyte distribution width (RBC) [Ratio] 43.8 fl 35.1-43.9 [facility] Estimation of creatinine thad aranceOrdered By: Stan Lin on 05-14-2024 Estimated Creatinine Clearance Calc 161.90 ml/min 50-250 [facility] GFR/1.73 sq M.predicted janet g non-blacks MDRD (S/P/Bld) [Vol rate/Area]Ordered By: Stan Lin on 05-14-2024 Estimated GFR (MDRD) Non-Af Amer 116 >60 [facility] Comment on above: mL/min/1.73m2 CKD-EP I Creatinine Equation (2020) Glomerular filtration rate ( GFR) estimation/1.73 sq m using serum, plasma, or whole bOrdered By: Stan Lin on 05-14-2024 GFR/1.73 sq M.predicted among non-blacks MDRD (S/P/Bld) [Vol rate/Area] 116 mL/min/{1.73_m2} >60 [facility] Comment on above: mL/min/1.73m2 CKD-EP I Creatinine Equation (2020) Hematocrit Auto (Bld) [Volum e fraction]Ordered By: ED PROVIDER on 05-14-2024 Hematocrit (Bld) [Volume fraction] 39.4 % 37-47 [facility] Hemoglobin measurementOrdere d By: ED PROVIDER on 05-14-2024 Hemoglobin (Bld) [Mass/Vol] 12.7 g/dL 12.0-15.0 [facility] Immature granulocytes/100 WB C Auto (Bld)Ordered By: ED PROVIDER on 05-14-2024 Immature granulocytes/100 WBC (Bld) 0.100 % 0.0-0.9 [facility] Comment on above: IG% - Immature Granu locytes (promyelocytes, myelocytes and metamyelocytes) > 1% indicates that a LEFT SHIFT is Present. L499.0042on 05-14-2024 Trop T High Sen < 6 Normal <=14 [facility] Comment on above: Performed By: #### L 499.0042 ####[facility] [address] [place], [address] L501.4021on 05-14-2024 Trop T High Sen < 6 Normal <=14 [facility] Comment on above: Performed By: #### L 100.0100, L501.4021, L500.2500 ####[facility] [address] [place], [address] Lymphocytes Auto (Unsp spec) [#/Vol]Ordered By: ED PROVIDER on 05-14-2024 Lymphocytes (Bld) [#/Vol] 2.55 10*3/uL 0.83-4.51 [facility] Lymphocytes/100 WBC Auto (Un sp spec)Ordered By: ED PROVIDER on 05-14-2024 Lymphocytes/100 WBC (Bld) 31.2 % 19-41 [facility] MCV (mean corpuscular volume ) determinationOrdered By: ED PROVIDER on 05-14-2024 MCV (RBC) [Entitic vol] 83.5 fL 81-99 [facility] Mean corpuscular hemoglobin (MCH) determinationOrdered By: ED PROVIDER on 05-14-2024 MCH (RBC) [Entitic mass] 26.9 pg Low 27.0-32.0 [facility] Mean corpuscular hemoglobin concentration (MCHC) determinationOrdered By: ED PROVIDER on 05-14-2024 MCHC (RBC) [Mass/Vol] 32.2 g/dL 32-36 [facility] Mean platelet volume determi nationOrdered By: ED PROVIDER on 05-14-2024 Platelet mean volume (Bld) [Entitic vol] 9.0 fL 6.2-12.0 [facility] Monocyte percentageOrdered B y: ED PROVIDER on 05-14-2024 Monocytes/100 WBC (Bld) 9.0 % 0-10 [facility] Neutrophil percentageOrdered By: ED PROVIDER on 05-14-2024 Neutrophils/100 WBC (Bld) 58.9 % 47-70 [facility] No Panel InformationOrdered By: ED PROVIDER on 05-14-2024 Troponin T High Sensitivity < 6 ng/L <14 [facility] < 6 ng/L <14 [facility] Nucleated red blood cell per centageOrdered By: ED PROVIDER on 05-14-2024 Nucleated RBC/100 WBC (Bld) [Ratio] 0 % 0-5 [facility] Platelet countOrdered By: ED PROVIDER on 05-14-2024 Platelets (Bld) [#/Vol] 374 10*3/uL 150-450 [facility] Potassium (Unsp spec) [Mass/ Vol]Ordered By: Stan Lin on 05-14-2024 Potassium [Moles/Vol] 4.1 mmol/L 3.3-5.1 [facility] Potassium measurement (mass/ volume)Ordered By: Stan Lin on 05-14-2024 Potassium (Unsp spec) [Mass/Vol] 4.1 mmol/L 3.3-5.1 [facility] RBC Auto (Bld) [#/Vol]Ordere d By: ED PROVIDER on 05-14-2024 RBC (Bld) [#/Vol] 4.72 10*6/uL 4.2-5.4 [facility] Serum creatinine measurement (mass/volume)Ordered By: Stan Lin on 05-14-2024 Creatinine [Mass/Vol] 0.73 mg/dL 0.70-1.20 [facility] Serum glucose measurement (m ass/volume)Ordered By: Stan Lin on 05-14-2024 Glucose [Mass/Vol] 124 mg/dL High 70-[address] [facility] Serum or plasma calcium cherelle urement (mass/volume)Ordered By: Stan Lin on 05-14-2024 Calcium [Mass/Vol] 9.5 mg/dL 7.6-11.[address] [facility] Serum or plasma urea nitroge n measurement (mass/volume)Ordered By: Stan Lin on 05-14-2024 Urea nitrogen [Mass/Vol] 15 mg/dL 4-19 [facility] Sodium levelOrdered By: Jeanne Lin on 05-14-2024 Sodium [Moles/Vol] 136 mmol/L 133-[address] [facility] Troponin T.cardiac High sens itivity method [Mass/Vol]Ordered By: Stan Lin on 05-14-2024 Troponin T High Sensitivity 2 Hour < 6 ng/L <14 [facility] Troponin T.cardiac [Mass/vol ume] in Serum or Plasma by High sensitivity methodOrdered By: Stan Lin on 05-14-2024 Troponin T.cardiac High sensitivity method [Mass/Vol] < 6 ng/L <14 [facility] White blood cell (WBC) count Ordered By: ED PROVIDER on 05-14-2024 WBC (Bld) [#/Vol] 8.2 10*3/uL 4.4-11.[address] [facility] Abdomen/Pelvis W IV Cont ONL Yon 05-08-2024 Abdomen/Pelvis W IV Cont ONLY Normal [facility] Absolute lymphocyte countOrd ered By: Stan Lin on 05-08-2024 Lymphocytes Auto (Unsp spec) [#/Vol] 2.37 10*3/uL 0.83-4.51 [facility] Absolute neutrophil countOrd ered By: Stan Lin on 05-08-2024 Neutrophils (Bld) [#/Vol] 4.5 10*3/uL 2.0-7.7 [facility] Anion gap in Serum or Plasma Ordered By: Stan Lin on 05-08-2024 Anion gap [Moles/Vol] 8 mmol/L 5-15 [facility] Automated lymphocyte count a s percentage of total leukocytesOrdered By: Stan Lin on 05-08-2024 Lymphocytes/100 WBC Auto (Unsp spec) 30.5 % [facility] BUN/creatinine ratioOrdered By: Stan Lin on 05-08-2024 Urea nitrogen/Creatinine [Mass ratio] 26.4 mg/mg High 12-08 [facility] Basophil percentageOrdered B y: Stan Delia on 05-08-2024 Basophils/100 WBC (Bld) 0.3 % 0-1 [facility] Beta HCG ( test) Ql Ordered By: Stan Lin on 05-08-2024 Serum Test, Qualitative Negative [facility] Bilirubin Test strip Ql (U)O rdered By: Stan Lin on 05-08-2024 Bilirubin Ql (U) Negative Negative [facility] Bilirubin, totalOrdered By: Stan Lin on 05-08-2024 Bilirubin [Mass/Vol] 0.21 mg/dL 0.00-1.30 [facility] CBC W/Diff, Automatedon 04-20 Absolute Lymph 2.37 X10 3/uL Normal 0.83-4.51 [facility] Comment on above: Performed By: #### L 500.4050, L100.0100, L700.6800, L501.2450 ####[facility] [address] [place], [address] Absolute Neut 4.5 X10 3/uL Normal 2.0-7.7 [facility] Comment on above: Performed By: #### L 500.4050, L100.0100, L700.6800, L501.2450 ####[facility] [address] [place], [address] Basophils/100 WBC (Bld) 0.3 % Normal 0-1 [facility] Comment on above: Performed By: #### L 500.4050, L100.0100, L700.6800, L501.2450 ####[facility] [address] [place], [address] Eosinophils/100 WBC (Bld) 0.5 % Normal 0-5 [facility] Comment on above: Performed By: #### L 500.4050, L100.0100, L700.6800, L501.2450 ####[facility] [address] [place], [address] Erythrocyte distribution width (RBC) [Ratio] 14.1 % Normal 11.6-14.6 [facility] Comment on above: Performed By: #### L 500.4050, L100.0100, L700.6800, L501.2450 ####[facility] [address] [place], [address] Hematocrit (Bld) [Volume fraction] 37.3 % Normal 37-47 [facility] Comment on above: Performed By: #### L 500.4050, L100.0100, L700.6800, L501.2450 ####[facility] [address] [place], [address] Hemoglobin (Bld) [Mass/Vol] 12.5 g/dL Normal 12.0-15.0 [facility] Comment on above: Performed By: #### L 500.4050, L100.0100, L700.6800, L501.2450 ####[facility] [address] [place], [address] IG% 0.300 Normal 0.0-0.9 [facility] Comment on above: Result Comment: IG% - Immature Granulocytes (promyelocytes, myelocytes andmetamyelocytes) > 1% indicates that a LEFT SHIFT is Present. Performed By: #### L 500.4050, L100.0100, L700.6800, L501.2450 ####[facility] [address] [place], [address] Lymphocytes/100 WBC (Bld) 30.5 % Normal 19-41 [facility] Comment on above: Performed By: #### L 500.4050, L100.0100, L700.6800, L501.2450 ####[facility] [address] [place], [address] MCH (RBC) [Entitic mass] 27.9 pg Normal 27.0-32.0 [facility] Comment on above: Performed By: #### L 500.4050, L100.0100, L700.6800, L501.2450 ####[facility] [address] [place], [address] MCHC (RBC) [Mass/Vol] 33.5 g/dL Normal 32-36 [facility] Comment on above: Performed By: #### L 500.4050, L100.0100, L700.6800, L501.2450 ####[facility] [address] [place], [address] MCV (RBC) [Entitic vol] 83.3 fL Normal 81-99 [facility] Comment on above: Performed By: #### L 500.4050, L100.0100, L700.6800, L501.2450 ####[facility] [address] [place], [address] Monocytes/100 WBC (Bld) 10.3 % High 0-10 [facility] Comment on above: Performed By: #### L 500.4050, L100.0100, L700.6800, L501.2450 ####[facility] [address] [place], [address] Neutrophils/100 WBC (Bld) 58.1 % Normal 47-70 [facility] Comment on above: Performed By: #### L 500.4050, L100.0100, L700.6800, L501.2450 ####[facility] [address] [place], [address] Nucleated RBC (Bld) [#/Vol] 0 10*3/uL Normal 0-5 [facility] Comment on above: Performed By: #### L 500.4050, L100.0100, L700.6800, L501.2450 ####[facility] [address] [place], [address] Platelet mean volume (Bld) [Entitic vol] 9.0 fL Normal 6.2-12.0 [facility] [facility] Comment on above: Performed By: #### L 500.4050, L100.0100, L700.6800, L501.2450 ####[facility] [address] [place], [address] Platelets (Bld) [#/Vol] 356 10*3/uL Normal 150-450 [facility] Comment on above: Performed By: #### L 500.4050, L100.0100, L700.6800, L501.2450 ####[facility] [address] [place], [address] RBC (Bld) [#/Vol] 4.48 10*6/uL Normal 4.2-5.4 [facility] Comment on above: Performed By: #### L 500.4050, L100.0100, L700.6800, L501.2450 ####[facility] [address] [place], [address] RDW SD 43.0 fl Normal 35.1-43.9 [facility] Comment on above: Performed By: #### L 500.4050, L100.0100, L700.6800, L501.2450 ####[facility] [address] [place], [address] WBC (Bld) [#/Vol] 7.8 10*3/uL Normal 4.4-11.[address] [facility] Comment on above: Performed By: #### L 500.4050, L100.0100, L700.6800, L501.2450 ####[facility] [address] [place], [address] Carbon dioxide, total [Moles /volume] in Central venous bloodOrdered By: Stan Lin on 05-08-2024 CO2 [Moles/Vol] 23.9 mmol/L 21.0-32.0 [facility] Chloride assayOrdered By: Doroteo Lin on 05-08-2024 Chloride [Moles/Vol] 107 mmol/L 98-108 [facility] Comprehensive Metabolic Prof ilon 05-08-2024 Albumin [Mass/Vol] 3.9 g/dL Normal 3.5-5.[address] [facility] Comment on above: Performed By: #### L 500.4050, L100.0100, L700.6800, L501.2450 ####[facility] [address] [place], [address] Albumin/Globulin [Mass ratio] 1.4 {ratio} Normal 0.9-2.4 [facility] Comment on above: Performed By: #### L 500.4050, L100.0100, L700.6800, L501.2450 ####[facility] [address] [place], [address] ALK PHOS 60 U/L Normal 35-104 [facility] Comment on above: Performed By: #### L 500.4050, L100.0100, L700.6800, L501.2450 ####[facility] [address] [place], [address] ALT [Catalytic activity/Vol] 26 U/L Normal <=34 [facility] Comment on above: Performed By: #### L 500.4050, L100.0100, L700.6800, L501.2450 ####[facility] [address] [place], [address] AST [Catalytic activity/Vol] 14 U/L Normal <=31 [facility] Comment on above: Performed By: #### L 500.4050, L100.0100, L700.6800, L501.2450 ####[facility] [address] [place], [address] Bilirubin [Mass/Vol] 0.21 mg/dL Normal 0.00-1.30 [facility] Comment on above: Performed By: #### L 500.4050, L100.0100, L700.6800, L501.2450 ####[facility] [address] [place], [address] BUN/CRE 26.4 RATIO High 10-20 [facility] Comment on above: Performed By: #### L 500.4050, L100.0100, L700.6800, L501.2450 ####[facility] [address] [place], [address] Calcium [Mass/Vol] 9.2 mg/dL Normal 7.6-11.[address] [facility] Comment on above: Performed By: #### L 500.4050, L100.0100, L700.6800, L501.2450 ####[facility] [address] [place], [address] Chloride [Moles/Vol] 107 mmol/L Normal 98-108 [facility] Comment on above: Performed By: #### L 500.4050, L100.0100, L700.6800, L501.2450 ####[facility] [address] [place], [address] CO2 [Moles/Vol] 23.9 mmol/L Normal 21.0-32.0 [facility] Comment on above: Performed By: #### L 500.4050, L100.0100, L700.6800, L501.2450 ####[facility] [address] [place], [address] Creatinine [Mass/Vol] 0.48 mg/dL Low 0.70-1.20 [facility] Comment on above: Performed By: #### L 500.4050, L100.0100, L700.6800, L501.2450 ####[facility] [address] [place], [address] ECRCL 243.10 ml/min Normal 50-250 [facility] Comment on above: Performed By: #### L 500.4050, L100.0100, L700.6800, L501.2450 ####[facility] [address] [place], [address] GAP 8 Normal 5-15 [facility] Comment on above: Performed By: #### L 500.4050, L100.0100, L700.6800, L501.2450 ####[facility] [address] [place], [address] GFR/1.73 sq M.predicted among non-blacks MDRD (S/P/Bld) [Vol rate/Area] 133 mL/min/{1.73_m2} Normal >60 [facility] Comment on above: Result Comment: mL/m in/1.73m2 CKD-EPI Creatinine Equation (2020) Performed By: #### L 500.4050, L100.0100, L700.6800, L501.2450 ####[facility] [address] [place], [address] Globulin (S) [Mass/Vol] 2.7 g/dL Normal 2.2-4.2 [facility] Comment on above: Performed By: #### L 500.4050, L100.0100, L700.6800, L501.2450 ####[facility] [address] [place], [address] Glucose [Mass/Vol] 107 mg/dL High 70-[address] [facility] Comment on above: Performed By: #### L 500.4050, L100.0100, L700.6800, L501.2450 ####[facility] [address] [place], [address] Potassium [Moles/Vol] 4.0 mmol/L Normal 3.3-5.1 [facility] Comment on above: Performed By: #### L 500.4050, L100.0100, L700.6800, L501.2450 ####[facility] [address] [place], [address] Sodium [Moles/Vol] 139 mmol/L Normal 133-[address] [facility] Comment on above: Performed By: #### L 500.4050, L100.0100, L700.6800, L501.2450 ####[facility] [address] [place], [address] T PROT 6.6 g/dL Normal 5.9-8.4 [facility] Comment on above: Performed By: #### L 500.4050, L100.0100, L700.6800, L501.2450 ####[facility] [address] [place], [address] Urea nitrogen [Mass/Vol] 13 mg/dL Normal 4-19 [facility] Comment on above: Performed By: #### L 500.4050, L100.0100, L700.6800, L501.2450 ####[facility] [address] [place], [address] Emergency Department Summary on 05-08-2024 Emergency Department Summary Normal [facility] Eosinophil percentageOrdered By: Stan Lin on 05-08-2024 Eosinophils/100 WBC (Bld) 0.5 % 0-5 [facility] Epithelial cells.squamous LM Ql (Urine sed)Ordered By: Stan Lin on 03-20-2025 Epithelial cells.squamous LM.HPF (Urine sed) [#/Area] 0 /[HPF] 5-10 [facility] Erythrocyte distribution wid th ratioOrdered By: Stan Lin on 05-08-2024 Erythrocyte distribution width (RBC) [Ratio] 14.1 % 11.6-14.6 [facility] Erythrocyte distribution wid th standard deviationOrdered By: Stan Lin on 05-08-2024 Erythrocyte distribution width (RBC) [Entitic vol] 43.0 fL 35.1-43.9 [facility] Erythrocyte distribution width (RBC) [Ratio] 43.0 fl 35.1-43.9 [facility] Estimation of creatinine thad aranceOrdered By: Stan Lin on 05-08-2024 Estimated Creatinine Clearance Calc 243.10 ml/min 50-250 [facility] GFR/1.73 sq M.predicted janet g non-blacks MDRD (S/P/Bld) [Vol rate/Area]Ordered By: Stan Lin on 05-08-2024 Estimated GFR (MDRD) Non-Af Amer 133 >60 [facility] Comment on above: mL/min/1.73m2 CKD-EP I Creatinine Equation (2020) Glomerular filtration rate ( GFR) estimation/1.73 sq m using serum, plasma, or whole bOrdered By: Stan Lin on 05-08-2024 GFR/1.73 sq M.predicted among non-blacks MDRD (S/P/Bld) [Vol rate/Area] 133 mL/min/{1.73_m2} >60 [facility] Comment on above: mL/min/1.73m2 CKD-EP I Creatinine Equation (2020) Glucose Ql (U)Ordered By: Doorteo Lin on 05-08-2024 Urine Glucose (UA) Normal mg/dl Normal [facility] Hematocrit Auto (Bld) [Volum e fraction]Ordered By: Stan Lin on 05-08-2024 Hematocrit (Bld) [Volume fraction] 37.3 % 37-47 [facility] Hemoglobin measurementOrdere d By: Stan Lin on 05-08-2024 Hemoglobin (Bld) [Mass/Vol] 12.5 g/dL 12.0-15.0 [facility] Immature granulocytes/100 WB C Auto (Bld)Ordered By: Stan Lin on 05-08-2024 Immature granulocytes/100 WBC (Bld) 0.300 % 0.0-0.9 [facility] Comment on above: IG% - Immature Granu locytes (promyelocytes, myelocytes and metamyelocytes) > 1% indicates that a LEFT SHIFT is Present. Ketones Test strip Ql (U)Ord ered By: Stan Lin on 05-08-2024 Ketones Ql (U) Negative Negative [facility] Laboratory - Chemistry and C hemistry - challengeOrdered By: Stan Lin on 05-08-2024 AST [Catalytic activity/Vol] 14 U/L <32 [facility] Lipaseon 05-08-2024 Lipase [Catalytic activity/Vol] 32 U/L Normal 13-75 [facility] Comment on above: Result Comment: Plea se note:LIPASE revised reference range effective 22.New Lipase methodology. Expected to produce lower valuesthan the previous assay method.NEW Reference Range: 13 - 75 U/L Performed By: #### L 500.4050, L100.0100, L700.6800, L501.2450 ####[facility] [address] [place], [place], [id number] Lipase measurementOrdered By : Stan Lin on 05-08-2024 Lipase [Catalytic activity/Vol] 32 U/L 13-75 [facility] Comment on above: Please note:LIPASE r evised reference range effective 22. New Lipase methodology. Expected to produce lower values than the previous assay method. NEW Reference Range: 13 - 75 U/L Lymphocytes Auto (Unsp spec) [#/Vol]Ordered By: Stan Lin on 05-08-2024 Lymphocytes (Bld) [#/Vol] 2.37 10*3/uL 0.83-4.51 [facility] Lymphocytes/100 WBC Auto (Un sp spec)Ordered By: Stan Lin on 05-08-2024 Lymphocytes/100 WBC (Bld) 30.5 % 19-41 [facility] MCV (mean corpuscular volume ) determinationOrdered By: Stan Lin on 05-08-2024 MCV (RBC) [Entitic vol] 83.3 fL 81-99 [facility] Mean corpuscular hemoglobin (MCH) determinationOrdered By: Stan Lin on 05-08-2024 MCH (RBC) [Entitic mass] 27.9 pg 27.0-32.0 [facility] Mean corpuscular hemoglobin concentration (MCHC) determinationOrdered By: Stan Lin on 05-08-2024 MCHC (RBC) [Mass/Vol] 33.5 g/dL 32-36 [facility] Comment on above: Delta: 31.7 on 05/07 Mean platelet volume determi nationOrdered By: Stan Lin on 05-08-2024 Platelet mean volume (Bld) [Entitic vol] 9.0 fL 6.2-12.0 [facility] Microscopic analysis of urin e for red blood cells (RBC)Ordered By: Stan Lin on 05-08-2024 Microscopic analysis of urine for red blood cells (RBC) 0-5 SEEN /hpf 0-5 [facility] Urine RBC 0-5 SEEN /hpf 0-5 [facility] Monocyte percentageOrdered B y: Stan Lin on 05-08-2024 Monocytes/100 WBC (Bld) 10.3 % High 0-10 [facility] Mucus LM Ql (Urine sed)Order ed By: Stan Lin on 05-08-2024 Mucus Ql (Urine sed) 0 SEEN /hpf [facility] Neutrophil percentageOrdered By: Stan Lin on 05-08-2024 Neutrophils/100 WBC (Bld) 58.1 % 47-70 [facility] Nitrite Test strip Ql (U)Ord ered By: Stan Lin on 05-08-2024 Nitrite Ql (U) Negative Negative [facility] No Panel InformationOrdered By: Stan Lin on 05-08-2024 14 U/L <32 [facility] Nucleated red blood cell per centageOrdered By: Stan Lin on 05-08-2024 Nucleated RBC/100 WBC (Bld) [Ratio] 0 % 0-5 [facility] Platelet countOrdered By: Doroteo Lin on 05-08-2024 Platelets (Bld) [#/Vol] 356 10*3/uL 150-450 [facility] Potassium (Unsp spec) [Mass/ Vol]Ordered By: Stan Lin on 05-08-2024 Potassium [Moles/Vol] 4.0 mmol/L 3.3-5.1 [facility] Potassium measurement (mass/ volume)Ordered By: Stan Lin on 05-08-2024 Potassium (Unsp spec) [Mass/Vol] 4.0 mmol/L 3.3-5.1 [facility] ,Serum,hCG Quali.on 05-08-2024 HCG, SERUM QUAL Negative Normal [facility] Comment on above: Performed By: #### L 500.4050, L100.0100, L700.6800, L501.2450 ####[facility] [address] [place], [address] Protein Test strip Ql (U)Ord ered By: Stan Lin on 05-08-2024 Protein Ql (U) 15 mg/dl High Negative [facility] RBC Auto (Bld) [#/Vol]Ordere d By: Stan Lin on 05-08-2024 RBC (Bld) [#/Vol] 4.48 10*6/uL 4.2-5.4 [facility] Serum beta-hCG test, qualita tiveOrdered By: Stan Lin on 05-08-2024 Beta HCG ( test) Ql Negative [facility] Serum creatinine measurement (mass/volume)Ordered By: Stan Lin on 05-08-2024 Creatinine [Mass/Vol] 0.48 mg/dL Low 0.70-1.20 [facility] Serum globulin measurementOr dered By: Stan Lin on 05-08-2024 Globulin (S) [Mass/Vol] 2.7 g/dL 2.2-4.2 [facility] Serum glucose measurement (m ass/volume)Ordered By: Stan Lin on 05-08-2024 Glucose [Mass/Vol] 107 mg/dL High 70-[address] [facility] Serum or plasma alanine godinez otransferase (ALT) measurementOrdered By: Stan Lin on 05-08-2024 ALT [Catalytic activity/Vol] 26 U/L <35 [facility] Serum or plasma albumin cherelle urement (mass/volume)Ordered By: Stan Lin on 05-08-2024 Albumin [Mass/Vol] 3.9 g/dL 3.5-5.[address] [facility] Serum or plasma albumin/glob ulin mass ratioOrdered By: Stan Lin on 05-08-2024 Albumin/Globulin [Mass ratio] 1.4 {ratio} 0.9-2.4 [facility] Serum or plasma alkaline rohit sphatase measurementOrdered By: Stan Lin on 05-08-2024 ALP [Catalytic activity/Vol] 60 U/L 35-104 [facility] Serum or plasma calcium cherelle urement (mass/volume)Ordered By: Stan Lin on 05-08-2024 Calcium [Mass/Vol] 9.2 mg/dL 7.6-11.[address] [facility] Serum or plasma urea nitroge n measurement (mass/volume)Ordered By: Stan Lin on 05-08-2024 Urea nitrogen [Mass/Vol] 13 mg/dL 4-19 [facility] Sodium levelOrdered By: Jeanne Lin on 05-08-2024 Sodium [Moles/Vol] 139 mmol/L 133-[address] [facility] Squamous epithelial cells de tection in urine sediment by light microscopyOrdered By: Stan Lin on 05-08-2024 Epithelial cells.squamous LM Ql (Urine sed) 0-5 SEEN /hpf 5-10 [facility] Total proteinOrdered By: Bhargav Lin on 05-08-2024 Protein [Mass/Vol] 6.6 g/dL 5.9-8.[address] [facility] Transitional cells LM Ql (Ur ine sed)Ordered By: Stan Lin on 05-08-2024 Urine Transitional Epithelial Cells 0-5 SEEN /hpf 0-5 [facility] Transitional cells detection in urine sediment by light microscopyOrdered By: Stan Lin on 05-08-2024 Transitional cells LM Ql (Urine sed) 0-5 SEEN /hpf 0-5 [facility] Urinalysis, Completeon 05-08 WBC 5-10 SEEN Normal 0-5 [facility] Comment on above: Order Comment: COLLE CTOR TO SPECIFY Performed By: #### L 400.0001 ####[facility] [address] [place], [address] EPI,TRANSITION 0-5 SEEN Normal 0-5 [facility] Comment on above: Order Comment: SELENA CTOR TO SPECIFY Performed By: #### L 400.0001 ####[facility] [address] [place], [address] RBC 0-5 SEEN Normal 0-5 [facility] Comment on above: Order Comment: SELENA CTOR TO SPECIFY Performed By: #### L 400.0001 ####[facility] [address] [place], [address] BACTERIA 1+ /hpf Normal None Seen [facility] Comment on above: Order Comment: SELENA CTOR TO SPECIFY Performed By: #### L 400.0001 ####[facility] [address] [place], [address] EPI,SQUAMOUS 0-5 SEEN Normal 5-10 [facility] Comment on above: Order Comment: SELENA CTOR TO SPECIFY Performed By: #### L 400.0001 ####[facility] [address] [place], [address] Mucus Ql (Urine sed) 0 SEEN Normal [facility] Comment on above: Order Comment: SELENA CTOR TO SPECIFY Performed By: #### L 400.0001 ####[facility] [address] [place], [address] Urine blood detectionOrdered By: Stan Lin on 05-08-2024 Urine Occult Blood 10 /ul High Negative [facility] Urine clarityOrdered By: Bhargav Lin on 05-08-2024 Clarity (U) Clear Clear [facility] Urine color determinationOrd ered By: Stan Lin on 05-08-2024 Color (U) Yellow Yellow [facility] Urine glucose detectionOrder ed By: Stan Lin on 05-08-2024 Glucose Ql (U) Normal mg/dl Normal [facility] Urine leukocyte esterase det ection by dipstickOrdered By: Stan Lin on 05-08-2024 Leukocyte esterase Test strip Ql (U) 25 /ul High Negative [facility] Urine pHOrdered By: Stan patricia on 05-08-2024 pH (U) 7.0 [pH] 5.0 - 8.0 [facility] Urine sediment bacteria coun t by microscopy (number/high power field)Ordered By: Stan Lin on 05-08-2024 Bacteria LM.HPF (Urine sed) [#/Area] 1 /[HPF] None Seen [facility] Urine specific gravity measu rementOrdered By: Stan Lin on 05-08-2024 Specific gravity (U) [Rel density] 1.005 1.002-1.030 [facility] Urine urobilinogen measureme ntOrdered By: Stan Lin on 05-08-2024 Urobilinogen Ql (U) Normal mg/dl Normal [facility] Urobilinogen Ql (U)Ordered B y: Stan Lin on 05-08-2024 Urine Urobilinogen Normal mg/dl Normal [facility] White blood cell (WBC) count Ordered By: Stan Lin on 05-08-2024 WBC (Bld) [#/Vol] 7.8 10*3/uL 4.4-11.[address] [facility] White blood cell countOrdere d By: Stan Lin on 05-08-2024 Urine WBC 5-10 SEEN /hpf 0-5 [facility] White blood cell count 5-10 SEEN /hpf 0-5 [facility] Absolute lymphocyte countOrd ered By: Karuna Lim on 05-07-2024 Lymphocytes Auto (Unsp spec) [#/Vol] 1.95 10*3/uL 0.83-4.51 [facility] Absolute neutrophil countOrd ered By: Karuna Lim on 05-07-2024 Neutrophils (Bld) [#/Vol] 4.9 10*3/uL 2.0-7.7 [facility] Automated lymphocyte count a s percentage of total leukocytesOrdered By: Karuna Lim on 05-07-2024 Lymphocytes/100 WBC Auto (Unsp spec) 25.4 % 19-41 [facility] Basophil percentageOrdered B y: Karuna Beam on 05-07-2024 Basophils/100 WBC (Bld) 0.5 % 0-1 [facility] CBC W/Diff, Automatedon 04-19 Absolute Lymph 1.95 X10 3/uL Normal 0.83-4.51 [facility] Comment on above: Performed By: #### L 501.9985, L100.0100 ####[facility] [address] [place], [address] Absolute Neut 4.9 X10 3/uL Normal 2.0-7.7 [facility] Comment on above: Performed By: #### L 501.9985, L100.0100 ####[facility] [address] [place], [address] Basophils/100 WBC (Bld) 0.5 % Normal 0-1 [facility] Comment on above: Performed By: #### L 501.9985, L100.0100 ####[facility] [address] [place], [address] Eosinophils/100 WBC (Bld) 0.4 % Normal 0-5 [facility] Comment on above: Performed By: #### L 501.9985, L100.0100 ####[facility] [address] [place], [address] Erythrocyte distribution width (RBC) [Ratio] 14.0 % Normal 11.6-14.6 [facility] Comment on above: Performed By: #### L 501.9985, L100.0100 ####[facility] [address] [place], [address] Hematocrit (Bld) [Volume fraction] 40.1 % Normal 37-47 [facility] Comment on above: Performed By: #### L 501.9985, L100.0100 ####[facility] [address] [place], [address] Hemoglobin (Bld) [Mass/Vol] 12.7 g/dL Normal 12.0-15.0 [facility] Comment on above: Performed By: #### L 501.85, L100.0100 ####[facility] [address] [place], [address] IG% 0.300 Normal 0.0-0.9 [facility] Comment on above: Result Comment: IG% - Immature Granulocytes (promyelocytes, myelocytes andmetamyelocytes) > 1% indicates that a LEFT SHIFT is Present. Performed By: #### L 501.85, L100.0100 ####[facility] [address] [place], [address] Lymphocytes/100 WBC (Bld) 25.4 % Normal 19-41 [facility] Comment on above: Performed By: #### L 501.9984, L100.0100 ####[facility] [address] [place], [address] MCH (RBC) [Entitic mass] 26.9 pg Low 27.0-32.0 [facility] Comment on above: Performed By: #### L 501.85, L100.0100 ####[facility] [address] [place], [address] MCHC (RBC) [Mass/Vol] 31.7 g/dL Low 32-36 [facility] Comment on above: Performed By: #### L 501.9985, L100.0100 ####[facility] [address] [place], [address] MCV (RBC) [Entitic vol] 85.0 fL Normal 81-99 [facility] Comment on above: Performed By: #### L 501.9985, L100.0100 ####[facility] [address] [place], [address] Monocytes/100 WBC (Bld) 9.1 % Normal 0-10 [facility] Comment on above: Performed By: #### L 501.9985, L100.0100 ####[facility] [address] [place], [address] Neutrophils/100 WBC (Bld) 64.3 % Normal 47-70 [facility] Comment on above: Performed By: #### L 501.9985, L100.0100 ####[facility] [address] [place], [address] Nucleated RBC (Bld) [#/Vol] 0 10*3/uL Normal 0-5 [facility] Comment on above: Performed By: #### L 501.9985, L100.0100 ####[facility] [address] [place], [address] Platelet mean volume (Bld) [Entitic vol] 9.4 fL Normal 6.2-12.0 [facility] Comment on above: Performed By: #### L 501.85, L100.0100 ####[facility] [address] [place], [address] Platelets (Bld) [#/Vol] 380 10*3/uL Normal 150-450 [facility] Comment on above: Performed By: #### L 501.85, L100.0100 ####[facility] [address] [place], [address] RBC (Bld) [#/Vol] 4.72 10*6/uL Normal 4.2-5.4 [facility] Comment on above: Performed By: #### L 501.9985, L100.0100 ####[facility] [address] [place], [address] RDW SD 43.4 fl Normal 35.1-43.9 [facility] Comment on above: Performed By: #### L 501.9985, L100.0100 ####[facility] [address] [place], [address] WBC (Bld) [#/Vol] 7.7 10*3/uL Normal 4.4-11.[address] [facility] Comment on above: Performed By: #### L 501.9985, L100.0100 ####[facility] [address] [place], [place], [id number] Eosinophil percentageOrdered By: Zebulun Beam on 05-07-2024 Eosinophils/100 WBC (Bld) 0.4 % 0-5 [facility] Erythrocyte distribution wid th ratioOrdered By: Zebulun Beam on 05-07-2024 Erythrocyte distribution width (RBC) [Ratio] 14.0 % 11.6-14.6 [facility] Erythrocyte distribution wid th standard deviationOrdered By: [facility] Be[facility] on 05-07-2024 Erythrocyte distribution width (RBC) [Entitic vol] 43.4 fL 35.1-43.9 [facility] Erythrocyte distribution width (RBC) [Ratio] 43.4 fl 35.1-43.9 [facility] Hematocrit Auto (Bld) [Volum e fraction]Ordered By: Zebulun Beam on 05-07-2024 Hematocrit (Bld) [Volume fraction] 40.1 % 37-47 [facility] Hemoglobin A1con 05-07-2024 HbA1c (Bld) [Mass fraction] 5.9 % Normal <=5.6 [facility] Comment on above: Performed By: #### L 501.9985, L100.0100 ####[facility] [address] [place], [place], [id number] Hemoglobin A1c percentageOrd ered By: Zebulun Beam on 05-07-2024 HbA1c (Bld) [Mass fraction] 5.9 % >5.7 [facility] Hemoglobin measurementOrdere d By: Zebulun Beam on 05-07-2024 Hemoglobin (Bld) [Mass/Vol] 12.7 g/dL 12.0-15.0 [facility] Immature granulocytes/100 WB C Auto (Bld)Ordered By: Zebulun Beam on 05-07-2024 Immature granulocytes/100 WBC (Bld) 0.300 % 0.0-0.9 [facility] Comment on above: IG% - Immature Granu locytes (promyelocytes, myelocytes and metamyelocytes) > 1% indicates that a LEFT SHIFT is Present. Lymphocytes Auto (Unsp spec) [#/Vol]Ordered By: Zebulun Beam on 05-07-2024 Lymphocytes (Bld) [#/Vol] 1.95 10*3/uL 0.83-4.51 [facility] Lymphocytes/100 WBC Auto (Un sp spec)Ordered By: Zebulun Beam on 05-07-2024 Lymphocytes/100 WBC (Bld) 25.4 % 19-41 [facility] MCV (mean corpuscular volume ) determinationOrdered By: Zebulun Beam on 05-07-2024 MCV (RBC) [Entitic vol] 85.0 fL 81-99 [facility] Mean corpuscular hemoglobin (MCH) determinationOrdered By: Zebulun Beam on 05-07-2024 MCH (RBC) [Entitic mass] 26.9 pg Low 27.0-32.0 [facility] Mean corpuscular hemoglobin concentration (MCHC) determinationOrdered By: Zebulun Beam on 05-07-2024 MCHC (RBC) [Mass/Vol] 31.7 g/dL Low 32-36 [facility] Mean platelet volume determi nationOrdered By: Zebulun Beam on 05-07-2024 Platelet mean volume (Bld) [Entitic vol] 9.4 fL 6.2-12.0 [facility] Monocyte percentageOrdered B y: Zebulun Beam on 05-07-2024 Monocytes/100 WBC (Bld) 9.1 % 0-10 [facility] Neutrophil percentageOrdered By: Zebulun Beam on 05-07-2024 Neutrophils/100 WBC (Bld) 64.3 % 47-70 [facility] Nucleated red blood cell per centageOrdered By: Zebulun Beam on 05-07-2024 Nucleated RBC/100 WBC (Bld) [Ratio] 0 % 0-5 [facility] Platelet countOrdered By: Vazquez marteun Beam on 05-07-2024 Platelets (Bld) [#/Vol] 380 10*3/uL 150-450 [facility] RBC Auto (Bld) [#/Vol]Ordere d By: Zebulun Beam on 05-07-2024 RBC (Bld) [#/Vol] 4.72 10*6/uL 4.2-5.4 [facility] White blood cell (WBC) count Ordered By: Zebulun Beam on 05-07-2024 WBC (Bld) [#/Vol] 7.7 10*3/uL 4.4-11.[address] [facility] Absolute lymphocyte countOrd ered By: Zebulun Beam on 04-22-2024 Lymphocytes Auto (Unsp spec) [#/Vol] 1.96 10*3/uL 0.83-4.51 [facility] Absolute neutrophil countOrd ered By: Zebulun Beam on 04-22-2024 Neutrophils (Bld) [#/Vol] 4.8 10*3/uL 2.0-7.7 [facility] Anion gap in Serum or Plasma Ordered By: Zebulun Beam on 04-22-2024 Anion gap [Moles/Vol] 15 mmol/L 5-15 [facility] Automated lymphocyte count a s percentage of total leukocytesOrdered By: Zebulun Beam on 04-22-2024 Lymphocytes/100 WBC Auto (Unsp spec) 26.0 % 19-41 [facility] BUN/creatinine ratioOrdered By: Zebulun Beam on 04-22-2024 Urea nitrogen/Creatinine [Mass ratio] 17.7 mg/mg 10-20 [facility] Basophil percentageOrdered B y: Zebulun Beam on 04-22-2024 Basophils/100 WBC (Bld) 0.5 % 0-1 [facility] Bilirubin, totalOrdered By: Zebulun Beam on 04-22-2024 Bilirubin [Mass/Vol] 0.33 mg/dL 0.00-1.30 [facility] CBC W/Diff, Automatedon Absolute Lymph 1.96 X10 3/uL Normal 0.83-4.51 [facility] Comment on above: Performed By: #### L 500.4050, L100.0100 ####[facility] [address] [place], [address] Absolute Neut 4.8 X10 3/uL Normal 2.0-7.7 [facility] Comment on above: Performed By: #### L 500.4050, L100.0100 ####[facility] [address] [place], [address] Basophils/100 WBC (Bld) 0.5 % Normal 0-1 [facility] Comment on above: Performed By: #### L 500.4050, L100.0100 ####[facility] [address] [place], [address] Eosinophils/100 WBC (Bld) 0.7 % Normal 0-5 [facility] Comment on above: Performed By: #### L 500.4050, L100.0100 ####[facility] [address] [place], [address] Erythrocyte distribution width (RBC) [Ratio] 13.7 % Normal 11.6-14.6 [facility] Comment on above: Performed By: #### L 500.4050, L100.0100 ####[facility] [address] [place], [address] Hematocrit (Bld) [Volume fraction] 37.9 % Normal 37-47 [facility] Comment on above: Performed By: #### L 500.4050, L100.0100 ####[facility] [address] [place], [address] Hemoglobin (Bld) [Mass/Vol] 12.1 g/dL Normal 12.0-15.0 [facility] Comment on above: Performed By: #### L 500.4050, L100.0100 ####[facility] [address] [place], [address] IG% 0.100 Normal 0.0-0.9 [facility] Comment on above: Result Comment: IG% - Immature Granulocytes (promyelocytes, myelocytes andmetamyelocytes) > 1% indicates that a LEFT SHIFT is Present. Performed By: #### L 500.4050, L100.0100 ####[facility] [address] [place], [address] Lymphocytes/100 WBC (Bld) 26.0 % Normal 19-41 [facility] Comment on above: Performed By: #### L 500.4050, L100.0100 ####[facility] [address] [place], [address] MCH (RBC) [Entitic mass] 26.9 pg Low 27.0-32.0 [facility] Comment on above: Performed By: #### L 500.4050, L100.0100 ####[facility] [address] [place], [address] MCHC (RBC) [Mass/Vol] 31.9 g/dL Low 32-36 [facility] Comment on above: Performed By: #### L 500.4050, L100.0100 ####[facility] [address] [place], [address] MCV (RBC) [Entitic vol] 84.2 fL Normal 81-99 [facility] Comment on above: Performed By: #### L 500.4050, L100.0100 ####[facility] [address] [place], [address] Monocytes/100 WBC (Bld) 8.5 % Normal 0-10 [facility] Comment on above: Performed By: #### L 500.4050, L100.0100 ####[facility] [address] [place], [address] Neutrophils/100 WBC (Bld) 64.2 % Normal 47-70 [facility] Comment on above: Performed By: #### L 500.4050, L100.0100 ####[facility] [address] [place], [address] Nucleated RBC (Bld) [#/Vol] 0 10*3/uL Normal 0-5 [facility] Comment on above: Performed By: #### L 500.4050, L100.0100 ####[facility] [address] [place], [address] Platelet mean volume (Bld) [Entitic vol] 9.6 fL Normal 6.2-12.0 [facility] Comment on above: Performed By: #### L 500.4050, L100.0100 ####[facility] [address] [place], [address] Platelets (Bld) [#/Vol] 352 10*3/uL Normal 150-450 [facility] Comment on above: Performed By: #### L 500.4050, L100.0100 ####[facility] [address] [place], [address] RBC (Bld) [#/Vol] 4.50 10*6/uL Normal 4.2-5.4 [facility] Comment on above: Performed By: #### L 500.4050, L100.0100 ####[facility] [address] [place], [address] RDW SD 41.9 fl Normal 35.1-43.9 [facility] Comment on above: Performed By: #### L 500.4050, L100.0100 ####[facility] [address] [place], [address] WBC (Bld) [#/Vol] 7.5 10*3/uL Normal 4.4-11.[address] [facility] Comment on above: Performed By: #### L 500.4050, L100.0100 ####[facility] [address] [place], [address] Carbon dioxide, total [Moles /volume] in Central venous bloodOrdered By: Karuna Lim on 04-22-2024 CO2 [Moles/Vol] 20.4 mmol/L Low 21.0-32.0 [facility] Chloride assayOrdered By: Vazquez Lim on 04-22-2024 Chloride [Moles/Vol] 104 mmol/L 98-108 [facility] Comprehensive Metabolic Prof ilon 04-22-2024 Albumin [Mass/Vol] 3.7 g/dL Normal 3.5-5.[address] [facility] Comment on above: Performed By: #### L 500.4050, L100.0100 ####[facility] [address] [place], [address] Albumin/Globulin [Mass ratio] 1.1 {ratio} Normal 0.9-2.4 [facility] Comment on above: Performed By: #### L 500.4050, L100.0100 ####[facility] [address] [place], [address] ALK PHOS 62 U/L Normal 35-104 [facility] Comment on above: Performed By: #### L 500.4050, L100.0100 ####[facility] [address] [place], [address] ALT [Catalytic activity/Vol] 19 U/L Normal <=34 [facility] Comment on above: Performed By: #### L 500.4050, L100.0100 ####[facility] [address] [place], [address] AST [Catalytic activity/Vol] 17 U/L Normal <=31 [facility] Comment on above: Performed By: #### L 500.4050, L100.0100 ####[facility] [address] [place], [address] Bilirubin [Mass/Vol] 0.33 mg/dL Normal 0.00-1.30 [facility] Comment on above: Performed By: #### L 500.4050, L100.0100 ####[facility] [address] [place], [address] BUN/CRE 17.7 RATIO Normal 10-20 [facility] Comment on above: Performed By: #### L 500.4050, L100.0100 ####[facility] [address] [place], [address] Calcium [Mass/Vol] 9.3 mg/dL Normal 7.6-11.[address] [facility] Comment on above: Performed By: #### L 500.4050, L100.0100 ####[facility] [address] [place], [address] Chloride [Moles/Vol] 104 mmol/L Normal 98-108 [facility] Comment on above: Performed By: #### L 500.4050, L100.0100 ####[facility] [address] [place], [address] CO2 [Moles/Vol] 20.4 mmol/L Low 21.0-32.0 [facility] Comment on above: Performed By: #### L 500.4050, L100.0100 ####[facility] [address] [place], [address] Creatinine [Mass/Vol] 0.58 mg/dL Low 0.70-1.20 [facility] Comment on above: Performed By: #### L 500.4050, L100.0100 ####[facility] [address] [place], [address] GAP 15 Normal 5-15 [facility] Comment on above: Performed By: #### L 500.4050, L100.0100 ####[facility] [address] [place], [address] GFR/1.73 sq M.predicted among non-blacks MDRD (S/P/Bld) [Vol rate/Area] 127 mL/min/{1.73_m2} Normal >60 [facility] Comment on above: Result Comment: mL/m in/1.73m2 CKD-EPI Creatinine Equation (2020) Performed By: #### L 500.4050, L100.0100 ####[facility] [address] [place], [address] Globulin (S) [Mass/Vol] 3.3 g/dL Normal 2.2-4.2 [facility] Comment on above: Performed By: #### L 500.4050, L100.0100 ####[facility] [address] [place], [address] Glucose [Mass/Vol] 109 mg/dL High 70-[address] [facility] Comment on above: Performed By: #### L 500.4050, L100.0100 ####[facility] [address] [place], [address] Potassium [Moles/Vol] 4.3 mmol/L Normal 3.3-5.1 [facility] Comment on above: Performed By: #### L 500.4050, L100.0100 ####[facility] [address] [place], [address] Sodium [Moles/Vol] 139 mmol/L Normal 133-[address] [facility] Comment on above: Performed By: #### L 500.4050, L100.0100 ####[facility] [address] [place], [address] T PROT 7.0 g/dL Normal 5.9-8.4 [facility] Comment on above: Performed By: #### L 500.4050, L100.0100 ####[facility] [address] [place], [address] Urea nitrogen [Mass/Vol] 10 mg/dL Normal 4-19 [facility] Comment on above: Performed By: #### L 500.4050, L100.0100 ####[facility] [address] [place], [address] Eosinophil percentageOrdered By: bulun Beam on 04-22-2024 Eosinophils/100 WBC (Bld) 0.7 % 0-5 [facility] Erythrocyte distribution wid th ratioOrdered By: [facility] Beam on 04-22-2024 Erythrocyte distribution width (RBC) [Ratio] 13.7 % 11.6-14.6 [facility] Erythrocyte distribution wid th standard deviationOrdered By: [facility] Beam on 04-22-2024 Erythrocyte distribution width (RBC) [Entitic vol] 41.9 fL 35.1-43.9 [facility] Erythrocyte distribution width (RBC) [Ratio] 41.9 fl 35.1-43.9 [facility] GFR/1.73 sq M.predicted janet g non-blacks MDRD (S/P/Bld) [Vol rate/Area]Ordered By: Karuna Lim on 04-22-2024 Estimated GFR (MDRD) Non-Af Amer 127 >60 [facility] Comment on above: mL/min/1.73m2 CKD-EP I Creatinine Equation (2020) Glomerular filtration rate ( GFR) estimation/1.73 sq m using serum, plasma, or whole bOrdered By: reba Carina on 04-22-2024 GFR/1.73 sq M.predicted among non-blacks MDRD (S/P/Bld) [Vol rate/Area] 127 mL/min/{1.73_m2} >60 [facility] Comment on above: mL/min/1.73m2 CKD-EP I Creatinine Equation (2020) Hematocrit Auto (Bld) [Volum e fraction]Ordered By: Karuna Lim on 04-22-2024 Hematocrit (Bld) [Volume fraction] 37.9 % 37-47 [facility] Hemoglobin measurementOrdere d By: Karuna Lim on 04-22-2024 Hemoglobin (Bld) [Mass/Vol] 12.1 g/dL 12.0-15.0 [facility] Immature granulocytes/100 WB C Auto (Bld)Ordered By: Paytonlun Beam on 04-22-2024 Immature granulocytes/100 WBC (Bld) 0.100 % 0.0-0.9 [facility] Comment on above: IG% - Immature Granu locytes (promyelocytes, myelocytes and metamyelocytes) > 1% indicates that a LEFT SHIFT is Present. Laboratory - Chemistry and C hemistry - challengeOrdered By: Paytonlun Beam on 04-22-2024 AST [Catalytic activity/Vol] 17 U/L <32 [facility] Lymphocytes Auto (Unsp spec) [#/Vol]Ordered By: [facility] Be[facility] on 04-22-2024 Lymphocytes (Bld) [#/Vol] 1.96 10*3/uL 0.83-4.51 [facility] Lymphocytes/100 WBC Auto (Un sp spec)Ordered By: [facility] Be[facility] on 04-22-2024 Lymphocytes/100 WBC (Bld) 26.0 % 19-41 [facility] MCV (mean corpuscular volume ) determinationOrdered By: [facility] Be[facility] on 04-22-2024 MCV (RBC) [Entitic vol] 84.2 fL 81-99 [facility] Mean corpuscular hemoglobin (MCH) determinationOrdered By: [facility] Be[facility] on 04-22-2024 MCH (RBC) [Entitic mass] 26.9 pg Low 27.0-32.0 [facility] Mean corpuscular hemoglobin concentration (MCHC) determinationOrdered By: [facility] Beam on 04-22-2024 MCHC (RBC) [Mass/Vol] 31.9 g/dL Low 32-36 [facility] Mean platelet volume determi nationOrdered By: [facility] Be[facility] on 04-22-2024 Platelet mean volume (Bld) [Entitic vol] 9.6 fL 6.2-12.0 [facility] Monocyte percentageOrdered B y: Zebulun Beam on 04-22-2024 Monocytes/100 WBC (Bld) 8.5 % 0-10 [facility] Neutrophil percentageOrdered By: bulun Beam on 04-22-2024 Neutrophils/100 WBC (Bld) 64.2 % 47-70 [facility] Nucleated red blood cell per centageOrdered By: Karuna Lim on 04-22-2024 Nucleated RBC/100 WBC (Bld) [Ratio] 0 % 0-5 [facility] Platelet countOrdered By: Vazquez Lim on 04-22-2024 Platelets (Bld) [#/Vol] 352 10*3/uL 150-450 [facility] Potassium (Unsp spec) [Mass/ Vol]Ordered By: Karuna Lim on 04-22-2024 Potassium [Moles/Vol] 4.3 mmol/L 3.3-5.1 [facility] Potassium measurement (mass/ volume)Ordered By: Karuna Lim on 04-22-2024 Potassium (Unsp spec) [Mass/Vol] 4.3 mmol/L 3.3-5.1 [facility] RBC Auto (Bld) [#/Vol]Ordere d By: Karuna Lim on 04-22-2024 RBC (Bld) [#/Vol] 4.50 10*6/uL 4.2-5.4 [facility] Serum creatinine measurement (mass/volume)Ordered By: Karuna Lim on 04-22-2024 Creatinine [Mass/Vol] 0.58 mg/dL Low 0.70-1.20 [facility] Serum globulin measurementOr dered By: Karuna Lim on 04-22-2024 Globulin (S) [Mass/Vol] 3.3 g/dL 2.2-4.2 [facility] Serum glucose measurement (m ass/volume)Ordered By: Karuna Lim on 04-22-2024 Glucose [Mass/Vol] 109 mg/dL High 70-[address] [facility] Serum or plasma alanine godinez otransferase (ALT) measurementOrdered By: Karuna Lim on 04-22-2024 ALT [Catalytic activity/Vol] 19 U/L <35 [facility] Serum or plasma albumin cherelle urement (mass/volume)Ordered By: Karuna Lim on 04-22-2024 Albumin [Mass/Vol] 3.7 g/dL 3.5-5.[address] [facility] Serum or plasma albumin/glob ulin mass ratioOrdered By: Jakin Beam on 04-22-2024 Albumin/Globulin [Mass ratio] 1.1 {ratio} 0.9-2.4 [facility] Serum or plasma alkaline rohit sphatase measurementOrdered By: Zebulun Beam on 04-22-2024 ALP [Catalytic activity/Vol] 62 U/L 35-104 [facility] Serum or plasma calcium cherelle urement (mass/volume)Ordered By: Zebulun Beam on 04-22-2024 Calcium [Mass/Vol] 9.3 mg/dL 7.6-11.[address] [facility] Serum or plasma urea nitroge n measurement (mass/volume)Ordered By: Zebulun Beam on 04-22-2024 Urea nitrogen [Mass/Vol] 10 mg/dL 4-19 [facility] Sodium levelOrdered By: Vazquezbu deb Beam on 04-22-2024 Sodium [Moles/Vol] 139 mmol/L 133-[address] [facility] Total proteinOrdered By: Juventino yin Beam on 04-22-2024 Protein [Mass/Vol] 7.0 g/dL 5.9-8.[address] [facility] White blood cell (WBC) count Ordered By: Karuna Beam on 04-22-2024 WBC (Bld) [#/Vol] 7.5 10*3/uL 4.4-11.[address] [facility] CNOVon 04-15-2024 CNOV Office Visit (ENWSTR ) -------- MARION GUTIERREZ ([id number]) 1995 F Date Time Provider Department 04/15/24 11:20 AM JEY JOHNSON During your visit today, we recorded the following information about you: Pulse Respiration Blood pressure Weight 68/minute 20/minute 120/68 132.3 kg Height Last Period 1.702 m 04/13/24 Jey Johnson MD 04/20/2024 3:26 PM Signed Endocrinology and Metabolism [place] Follow up note Chief complaint: Evaluation of [...] Comments P (more content not 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 Normal [facility] CNOVon 04-14-2024 CNOV Office Visit (UCWSTR ) -------- MARION GUTIERREZ ([id number]) 1995 F Date Time Provider Department 04/14/24 4:00 PM LINCOLN BALDERAS [facility] During your visit today, we recorded the following information about you: Temperature Pulse Respiration Blood pressure 98.5 degrees 76/minute 18/minute 142/98 Weight 133.7 kg Lincoln Balderas MD 04/14/2024 4:34 PM Signed Patient presents with: Diarrhea: vomiting, cough, chills and fever x 4 days HPI: Feeling sick starting 4 days ago. 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 Continue supportive care for viral illness. [...] Comments: Eats (more content not 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 Normal [facility] Urine Cultureon 02-06-2024 URC Below infection leve l. Mixed Gram Positive Organisms [place] Count 1000-10,000 MIXC Mixed contaminants. Submit a new specimen if indicated. Normal [facility] Comment on above: Performed By: #### M 100.2200, L400.2010 ####[facility] [address] [place], [place], [id number] Bilirubin Test strip Ql (U)O rdered By: Karuna Lim on 02-05-2024 Bilirubin Ql (U) Negative Negative [facility] Glucose Ql (U)Ordered By: Vazquez Lim on 02-05-2024 Urine Glucose (UA) Normal mg/dl Normal [facility] Ketones Test strip Ql (U)Ord ered By: Karuna Lim on 02-05-2024 Ketones Ql (U) Negative Negative [facility] Nitrite Test strip Ql (U)Ord ered By: Zebulun Beam on 02-05-2024 Nitrite Ql (U) Negative Negative [facility] Protein Test strip Ql (U)Ord ered By: Zebulun Beam on 02-05-2024 Protein Ql (U) 30 mg/dl High Negative [facility] Urinalysis, Routine (Dipstic k)on 02-05-2024 BILIRUBIN URINE Negative Normal Negative [facility] Comment on above: Order Comment: Urine , Random Performed By: #### M 100.2200, L4 ####[facility] [address] [place], [address] Clarity (U) Cloudy Normal Clear [facility] Comment on above: Order Comment: Urine , Random Performed By: #### M 100.2199, L4 ####[facility] [address] [place], [address] Color (U) Yellow Normal Yellow [facility] Comment on above: Order Comment: Urine , Random Performed By: #### M 100.2199, L4 ####[facility] [address] [place], [address] GLUCOSE, UR Normal Normal Normal [facility] [facility] Comment on above: Order Comment: Urine , Random Performed By: #### M 100.2199, L4 ####[facility] [address] [place], [address] KETONE UR Negative Normal Negative [facility] Comment on above: Order Comment: Urine , Random Performed By: #### M 100.2200, L4 ####[facility] [address] [place], [address] LEUK ESTERASE 25 /ul Abnormal Negative [facility] Comment on above: Order Comment: Urine , Random Performed By: #### M 100.2200, L4 ####[facility] [address] [place], [address] Nitrite Ql (U) Negative Normal Negative [facility] Comment on above: Order Comment: Urine , Random Performed By: #### M 100.2200, L4.2010 ####[facility] [address] [place], [address] OCCULT BLOOD-UR 250 /ul Abnormal Negative [facility] Comment on above: Order Comment: Urine , Random Performed By: #### M 100.2199, L4 ####[facility] [address] [place], [address] pH UR 6.0 Normal 5.0 - 8.0 [facility] Comment on above: Order Comment: Urine , Random Performed By: #### M 100.2199, L4 ####[facility] [address] [place], [address] PROT DIPSTX 30 mg/dl Abnormal Negative [facility] Comment on above: Order Comment: Urine , Random Performed By: #### M 100.2199, L4 ####[facility] [address] [place], [address] SP.GR. DIPSTX 1.015 Normal 1.002-1.030 [facility] Comment on above: Order Comment: Urine , Random Performed By: #### M 100.2199, L4 ####[facility] [address] [place], [address] UROBILI Normal Normal Normal [facility] Comment on above: Order Comment: Urine , Random Performed By: #### M 100.220, L4 ####[facility] [address] [place], [address] Urine blood detectionOrdered By: Karuna Lim on 02-05-2024 Urine Occult Blood 250 /ul High Negative [facility] Urine clarityOrdered By: Juventino Lim on 02-05-2024 Clarity (U) Cloudy Clear [facility] Urine color determinationOrd ered By: Karuna Lim on 02-05-2024 Color (U) Yellow Yellow [facility] Urine cultureOrdered By: Juventino Lim on 02-05-2024 Bacteria identified Cx Nom (U) Positive Abnormal [facility] Urine leukocyte esterase det ection by dipstickOrdered By: Karuna Lim on 02-05-2024 Leukocyte esterase Test strip Ql (U) 25 /ul High Negative [facility] Urine pHOrdered By: Karuna Lim on 02-05-2024 pH (U) 6.0 [pH] 5.0 - 8.0 [facility] Urine specific gravity measu rementOrdered By: Karuna iLm on 02-05-2024 Specific gravity (U) [Rel density] 1.015 1.002-1.030 [facility] Urobilinogen Ql (U)Ordered B y: Karuna Lim on 02-05-2024 Urine Urobilinogen Normal mg/dl Normal [facility] CNOVon 01-25-2024 [facility] -------- FedeJESÚSMARION LORENZ Marah ([id number]) 1995 F Date Time Provider Department 01/25/24 1:30 PM LOUIS SCHMIDT [facility] During your visit today, we recorded the following information about you: Temperature Pulse Respiration Blood pressure 98.6 degrees 69/minute 20/minute 132/90 Weight 135 kg Louis Schmidt APRN.[employer] 01/25/2024 12:56 PM Signed CC: Patient presents [...] two times a day for 7 days. dzaafsxm-vvqiructy-jhllo cortisone (CORTISPORIN) 3.5-10,000-1 mg/mL-unit/mL-% otic suspension Use [...] Acute betty (more content not 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 Normal [facility] Juventino 01-25-2024 [facility] Telephone ([facility]) -------- DOCMARION LORENZ ([id number]) 1995 F Date Time Provider Department 01/25/24 MALLIKA MO [facility] During your visit today, we recorded the following information about you: Mlalika Mo APRN.[employer] 01/25/2024 7:12 AM Signed Please notify that [...] 441 mg intramuscularly every 4 weeks. - [employer] VERIO TEST STRIPS test strip 1 Each [...] MOUTH TWICE DAILY NEEDED FOR CONSTIPATION. - [employer] DELICA PLUS LANCET 33 gauge 1 Each [...] Encounter Status:Closed by NATALEE RODRIGUEZ on 01/25/24 Normal [facility] CNOVon 01-24-2024 CNOV Office Visit ([facility] ) -------- MARION GUTIERREZ ([id number]) 1995 F Date Time Provider Department 01/24/24 1:45 PM [facility] During your visit today, we recorded the following information about you: Temperature Pulse Respiration Blood pressure 97.9 degrees 73/minute 20/minute 128/82 Weight 135 kg Maru Galicia PA 01/24/2024 2:08 PM Signed This note was created using [employer]itt[employer]. Subjective Marion Gutierrez is a 28 year [...] Inject 441 mg intramuscularly every 4 weeks. [employer] VERIO TEST STRIPS test strip 1 Each [...] BY MOUTH TWICE DAILY NEEDED FOR CONSTIPATION. [employer] DELICA PLUS LANCET 33 gauge 1 Each [...] Effort: Pu (more content not 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 Normal [facility] COVID AND INFLUENZA A/B AND RSV PCR, ROUTINEon 01-24-2024 SARS-CoV-2 (COVID-19) RNA DAMARIS+probe Ql (Unsp spec) SARS-COV-2 (AGENT OF COVID-19) RNA: Not detected INFLUENZA A RNA: Not detected INFLUENZA B RNA: Not detected RESPIRATORY SYNCYTIAL VIRUS (RSV) RNA: Not detected Normal [facility] Comment on above: Performed By: #### C VFLRS ####[facility] LABCLIA [id number] [place] [address] [place] STREP A MOLECULAR (POC)on Procedural Control Valid [facility] Strep A (POCT) Negative Negative [facility] Cardiology Visit Reporton Cardiology Visit Report Normal [facility] CNOVon 01-08-2024 CNOV Office Visit ([facility] ) -------- MARION GUTIERREZ ([id number]) 1995 F Date Time Provider Department 01/08/24 11:40 AM JEY JOHNSON During your visit today, we recorded the following information about you: Pulse Respiration Blood pressure Weight 72/minute 21/minute 122/76 133.4 kg Height Last Period 1.702 m 12/29/23 Jey Johnson MD 01/09/2024 6:32 PM Signed Endocrinology and Metabolism [facility] [place] Follow up note Chief complaint: Evaluation of [...] 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 Normal [facility] Absolute lymphocyte countOrd ered By: Roxy Ibarar on 06-03-2023 Lymphocytes Auto (Unsp spec) [#/Vol] 3.04 10*3/uL 0.83-4.51 [facility] Automated lymphocyte count a s percentage of total leukocytesOrdered By: Roxy Ibarra on 06-03-2023 Lymphocytes/100 WBC Auto (Unsp spec) 27.2 % 19-41 [facility] Basophil percentageOrdered B y: Roxy Ibarra on 06-03-2023 Basophils/100 WBC (Bld) 0.5 % 0-1 [facility] Chloride [Moles/Vol] 108 mmol/L 98-107 [facility] Eosinophils/100 WBC (Bld) 1.5 % 0-5 [facility] Glucose [Mass/Vol] 99 mg/dL 74-[address] [facility] Hemoglobin (Bld) [Mass/Vol] 12.9 g/dL 12.0-15.0 [facility] Monocytes/100 WBC (Bld) 8.1 % 0-10 [facility] Neutrophils (Bld) [#/Vol] 7.0 10*3/uL 2.0-7.7 [facility] Neutrophils/100 WBC (Bld) 62.4 % 47-70 [facility] Potassium [Moles/Vol] 3.9 mmol/L 3.5-5.1 [facility] Sodium [Moles/Vol] 140 mmol/L 136-[address] [facility] WBC (Bld) [#/Vol] 11.2 10*3/uL 4.4-11.0 [facility] Determination of erythrocyte mean corpuscular volume (MCV)Ordered By: Roxy Ibarra on 06-03-2023 MCV (RBC) [Entitic vol] 86.4 fL 81-99 [facility] Erythrocyte distribution wid th ratioOrdered By: Roxy Ibarra on 06-03-2023 Erythrocyte distribution width (RBC) [Ratio] 14.1 % 11.6-14.6 [facility] Erythrocyte distribution wid th standard deviationOrdered By: Roxy Ibarra on 06-03-2023 Erythrocyte distribution width (RBC) [Entitic vol] 44.7 fL 35.1-43.9 [facility] Hematocrit Auto (Bld) [Volum e fraction]Ordered By: Roxy Ibarra on 06-03-2023 Hematocrit (Bld) [Volume fraction] 39.9 % 37-47 [facility] Immature granulocytes/100 WB C Auto (Bld)Ordered By: Roxy Ibarra on 06-03-2023 Immature granulocytes/100 WBC (Bld) 0.300 % 0.0-0.9 [facility] Comment on above: IG% - Immature Granu locytes (promyelocytes, myelocytes and metamyelocytes) > 1% indicates that a LEFT SHIFT is Present. Laboratory - Chemistry and C hemistry - challengeOrdered By: Roxy Ibarra on 06-03-2023 CO2 [Moles/Vol] 25.0 mmol/L 21.0-32.0 [facility] Urea nitrogen/Creatinine [Mass ratio] 17.4 mg/mg 10-20 [facility] Laboratory - Hematology and Cell countsOrdered By: Roxy Ibarra on 06-03-2023 MCH (RBC) [Entitic mass] 27.9 pg 27.0-32.0 [facility] MCHC (RBC) [Mass/Vol] 32.3 g/dL 32-36 [facility] Nucleated RBC/100 WBC (Bld) [Ratio] 0 % 0-5 [facility] Platelet mean volume (Bld) [Entitic vol] 9.0 fL 6.2-12.0 [facility] Platelets (Bld) [#/Vol] 382 10*3/uL 150-450 [facility] No Panel InformationOrdered By: Roxy Ibarra on 06-03-2023 D-Dimer Quantitative (PE/DVT) < 0.27 FEU/ug/m 0.27-0.49 [facility] Comment on above: NORMAL D-Dimer level (<0.50) indicates no DVT or PE. Estimated Creatinine Clearance Calc 162.22 ml/min [facility] Estimated GFR (MDRD) Amer 121 mL/min >60 [facility] Comment on above: GFR Calc Estimated GFR (MDRD) Non-Af Amer 100 mL/min >60 [facility] Comment on above: Non- GFR Calc Troponin I High Sensitivity 4 pg/mL 3.0-54.0 [facility] Comment on above: Please Note: New Renetta t Units and Gender Specific Reference Ranges. For more information see Policy Stat Procedure [place] High Sensitivity Troponin (TNIH) and attachments. RBC Auto (Bld) [#/Vol]Ordere d By: Roxy Ibarra on 06-03-2023 RBC (Bld) [#/Vol] 4.62 10*6/uL 4.2-5.4 [facility] Serum or plasma calcium cherelle urement (mass/volume)Ordered By: Roxy Ibarra on 06-03-2023 Calcium [Mass/Vol] 9.0 mg/dL 8.5-10.[address] [facility] Serum or plasma creatinine m easurement (mass/volume)Ordered By: Roxy Ibarra on 06-03-2023 Creatinine [Mass/Vol] 0.74 mg/dL 0.55-1.02 [facility] Comment on above: The validity of the calculated GFR & GFRAA in patients over 70 years has not been determined. Clinical correlation is essential. Serum or plasma thyroid stim ulating hormone (TSH) measurement (units/volume)Ordered By: Roxy Ibarra on 06-03-2023 TSH Qn 4.01 uIU/mL 0.358-3.74 [facility] Serum or plasma urea nitroge n measurement (mass/volume)Ordered By: Roxy Ibarra on 06-03-2023 Urea nitrogen [Mass/Vol] 13 mg/dL 7-18 [facility] Thin prep Papanicolaou smear with manual screeningOrdered By: Roxy Ibarra on 06-03-2023 Thin prep Papanicolaou smear with manual screening 7 5-15 [facility] Absolute lymphocyte countOrd ered By: Sarah Purdy on 05-08-2023 Lymphocytes Auto (Unsp spec) [#/Vol] 2.64 10*3/uL 0.83-4.51 [facility] Automated lymphocyte count a s percentage of total leukocytesOrdered By: Sarah Purdy on 05-08-2023 Lymphocytes/100 WBC Auto (Unsp spec) 23.6 % 19-41 [facility] Basophil percentageOrdered B y: Sarah Purdy on 05-08-2023 Basophils/100 WBC (Bld) 0.5 % 0-1 [facility] Bilirubin [Mass/Vol] 0.40 mg/dL 0.20-1.00 [facility] Comment on above: For patients on eltr ombopag therapy, use of Dimension [place] TBIL is not recommended. Chloride [Moles/Vol] 107 mmol/L 98-107 [facility] Eosinophils/100 WBC (Bld) 1.7 % 0-5 [facility] Glucose [Mass/Vol] 105 mg/dL 74-[address] [facility] Comment on above: Fasting Glucose resu lt from 100 to 125 mg/dL suggests IMPAIRED HOMEOSTASIS per A.D.A. criteria. Hemoglobin (Bld) [Mass/Vol] 13.6 g/dL 12.0-15.0 [facility] Monocytes/100 WBC (Bld) 6.8 % 0-10 [facility] Neutrophils (Bld) [#/Vol] 7.5 10*3/uL 2.0-7.7 [facility] Neutrophils/100 WBC (Bld) 67.0 % 47-70 [facility] Potassium [Moles/Vol] 3.8 mmol/L 3.5-5.1 [facility] Protein [Mass/Vol] 7.9 g/dL 6.4-8.[address] [facility] Sodium [Moles/Vol] 141 mmol/L 136-[address] [facility] WBC (Bld) [#/Vol] 11.2 10*3/uL 4.4-11.0 [facility] Determination of erythrocyte mean corpuscular volume (MCV)Ordered By: Sarah Purdy on 05-08-2023 MCV (RBC) [Entitic vol] 87.9 fL 81-99 [facility] Direct bilirubinOrdered By: Sarah Purdy on 05-08-2023 Bilirubin.direct [Mass/Vol] 0.11 mg/dL 0.00-0.30 [facility] Erythrocyte distribution wid th ratioOrdered By: Sarah Purdy on 05-08-2023 Erythrocyte distribution width (RBC) [Ratio] 14.3 % 11.6-14.6 [facility] Erythrocyte distribution wid th standard deviationOrdered By: Sarah Purdy on 05-08-2023 Erythrocyte distribution width (RBC) [Entitic vol] 46.1 fL 35.1-43.9 [facility] Hematocrit Auto (Bld) [Volum e fraction]Ordered By: Sarah Purdy on 05-08-2023 Hematocrit (Bld) [Volume fraction] 44.5 % 37-47 [facility] Immature granulocytes/100 WB C Auto (Bld)Ordered By: Sarah Purdy on 05-08-2023 Immature granulocytes/100 WBC (Bld) 0.400 % 0.0-0.9 [facility] Comment on above: IG% - Immature Granu locytes (promyelocytes, myelocytes and metamyelocytes) > 1% indicates that a LEFT SHIFT is Present. Laboratory - Chemistry and C hemistry - challengeOrdered By: Sarah Purdy on 05-08-2023 ALP [Catalytic activity/Vol] 66 U/L 45-117 [facility] ALT [Catalytic activity/Vol] 39 U/L 13-56 [facility] CO2 [Moles/Vol] 26.0 mmol/L 21.0-32.0 [facility] Globulin (S) [Mass/Vol] 4.4 g/dL 2.2-4.2 [facility] Urea nitrogen/Creatinine [Mass ratio] 18.9 mg/mg 10-20 [facility] Laboratory - Hematology and Cell countsOrdered By: Sarah Purdy on 05-08-2023 MCH (RBC) [Entitic mass] 26.9 pg 27.0-32.0 [facility] MCHC (RBC) [Mass/Vol] 30.6 g/dL 32-36 [facility] Nucleated RBC/100 WBC (Bld) [Ratio] 0 % 0-5 [facility] Platelet mean volume (Bld) [Entitic vol] 9.6 fL 6.2-12.0 [facility] Platelets (Bld) [#/Vol] 408 10*3/uL 150-450 [facility] Laboratory - Microbiology an d Antimicrobial susceptibilityOrdered By: Sarah Purdy on 05-08-2023 SARS-CoV-2 (COVID-19) RNA DAMARIS+probe Ql (Unsp spec) [facility] No Panel InformationOrdered By: Sarah Purdy on 05-08-2023 [place] Level 0.70 mmol/L 0.60-1.20 [facility] Comment on above: Moderate Hemolysis, Result may be falsely increased. Estimated Creatinine Clearance Calc 157.46 ml/min [facility] Estimated GFR (MDRD) Amer 122 mL/min >60 [facility] Comment on above: GFR Calc Estimated GFR (MDRD) Non-Af Amer 100 mL/min >60 [facility] Comment on above: Non- GFR Calc RBC Auto (Bld) [#/Vol]Ordere d By: Sarah Purdy on 05-08-2023 RBC (Bld) [#/Vol] 5.06 10*6/uL 4.2-5.4 [facility] Serum or plasma calcium cherelle urement (mass/volume)Ordered By: Sarah Purdy on 05-08-2023 Calcium [Mass/Vol] 9.1 mg/dL 8.5-10.[address] [facility] Serum or plasma choriogonado tropin detectionOrdered By: Sarah Purdy on 05-08-2023 HCG ( test) Ql Negative [facility] Serum or plasma creatinine m easurement (mass/volume)Ordered By: Sarah Purdy on 05-08-2023 Creatinine [Mass/Vol] 0.74 mg/dL 0.55-1.02 [facility] Comment on above: The validity of the calculated GFR & GFRAA in patients over 70 years has not been determined. Clinical correlation is essential. Serum or plasma urea nitroge n measurement (mass/volume)Ordered By: Sarah Purdy on 05-08-2023 Urea nitrogen [Mass/Vol] 14 mg/dL 7-18 [facility] Thin prep Papanicolaou smear with manual screeningOrdered By: Sarah Purdy on 05-08-2023 Thin prep Papanicolaou smear with manual screening 3.5 g/dL 3.2-5.0 [facility] Thin prep Papanicolaou smear with manual screening 16 U/L 15-37 [facility] Thin prep Papanicolaou smear with manual screening 8 5-15 [facility] Absolute lymphocyte countOrd ered By: Lianet Worrell on 04-07-2023 Lymphocytes Auto (Unsp spec) [#/Vol] 2.28 10*3/uL 0.83-4.51 [facility] Automated lymphocyte count a s percentage of total leukocytesOrdered By: Lianet Worrell on 04-07-2023 Lymphocytes/100 WBC Auto (Unsp spec) 24.6 % 19-41 [facility] Basophil percentageOrdered B y: Lianet Worrell on 04-07-2023 Basophils/100 WBC (Bld) 0.5 % 0-1 [facility] Chloride [Moles/Vol] 113 mmol/L 98-107 [facility] Eosinophils/100 WBC (Bld) 1.0 % 0-5 [facility] Glucose [Mass/Vol] 122 mg/dL 74-[address] [facility] Comment on above: Fasting Glucose resu lt from 100 to 125 mg/dL suggests IMPAIRED HOMEOSTASIS per A.D.A. criteria. Hemoglobin (Bld) [Mass/Vol] 12.7 g/dL 12.0-15.0 [facility] Monocytes/100 WBC (Bld) 7.3 % 0-10 [facility] Neutrophils (Bld) [#/Vol] 6.1 10*3/uL 2.0-7.7 [facility] Neutrophils/100 WBC (Bld) 66.2 % 47-70 [facility] Potassium [Moles/Vol] 3.8 mmol/L 3.5-5.1 [facility] Sodium [Moles/Vol] 140 mmol/L 136-[address] [facility] WBC (Bld) [#/Vol] 9.3 10*3/uL 4.4-11.[address] [facility] Determination of erythrocyte mean corpuscular volume (MCV)Ordered By: Lianet Worrell on 04-07-2023 MCV (RBC) [Entitic vol] 86.5 fL 81-99 [facility] Erythrocyte distribution wid th ratioOrdered By: Lianet Worrell on 04-07-2023 Erythrocyte distribution width (RBC) [Ratio] 13.9 % 11.6-14.6 [facility] Erythrocyte distribution wid th standard deviationOrdered By: Lianet Worrell on 04-07-2023 Erythrocyte distribution width (RBC) [Entitic vol] 43.9 fL 35.1-43.9 [facility] Hematocrit Auto (Bld) [Volum e fraction]Ordered By: Lianet Worrell on 04-07-2023 Hematocrit (Bld) [Volume fraction] 40.4 % 37-47 [facility] Immature granulocytes/100 WB C Auto (Bld)Ordered By: Lianet Worrell on 04-07-2023 Immature granulocytes/100 WBC (Bld) 0.400 % 0.0-0.9 [facility] Comment on above: IG% - Immature Granu locytes (promyelocytes, myelocytes and metamyelocytes) > 1% indicates that a LEFT SHIFT is Present. Laboratory - Chemistry and C hemistry - challengeOrdered By: Lianet Worrell on 04-07-2023 CO2 [Moles/Vol] 23.0 mmol/L 21.0-32.0 [facility] Urea nitrogen/Creatinine [Mass ratio] 15.8 mg/mg 10-20 [facility] Laboratory - Drug toxicology Ordered By: Lianet Worrell on 04-07-2023 Amphetamines Ql (U) Negative <1000 ng/mL [facility] Benzodiazepines Ql (U) Negative < 200 ng/mL [facility] Cannabinoids Screen Ql (U) Negative < 50 ng/mL [facility] Cocaine Ql (U) Negative < 300 ng/mL [facility] Opiates Ql (U) Negative < 300 ng/mL [facility] Laboratory - Hematology and Cell countsOrdered By: Linaet Worrell on 04-07-2023 MCH (RBC) [Entitic mass] 27.2 pg 27.0-32.0 [facility] MCHC (RBC) [Mass/Vol] 31.4 g/dL 32-36 [facility] Nucleated RBC/100 WBC (Bld) [Ratio] 0 % 0-5 [facility] Platelet mean volume (Bld) [Entitic vol] 9.0 fL 6.2-12.0 [facility] Platelets (Bld) [#/Vol] 340 10*3/uL 150-450 [facility] Laboratory - Microbiology an d Antimicrobial susceptibilityOrdered By: Lianet Worrell on 04-07-2023 SARS-CoV-2 (COVID-19) RNA DAMARIS+probe Ql (Unsp spec) [facility] SARS-CoV-2 (COVID-19) RNA DAMARIS+probe Ql (Unsp spec) [facility] No Panel InformationOrdered By: Lianet Worrell on 04-07-2023 MDMA (Ecstasy) Screen Negative < 500 ng/mL [facility] Urine Barbiturates Screen Negative < 200 ng/mL [facility] Urine Drug Screen Comment [facility] Comment on above: CONFIRMATORY TESTING FOR [...] Methadone Screen Negative < 300 ng/mL [facility] Estimated Creatinine Clearance Calc 170.69 ml/min [facility] Estimated GFR (MDRD) Amer 130 mL/min >60 [facility] Comment on above: GFR Calc Estimated GFR (MDRD) Non-Af Amer 108 mL/min >60 [facility] Comment on above: Non- GFR Calc Ethyl Alcohol Level < 3.0 mg/dL [facility] Comment on above: The serum:whole bloo d ethanol ratio is approximately 1.14and varies slightly with hematocrit. Medical Alcohol reference interval and critical value innon-tolerant individuals; 50 - 100 Impairment 100 Intoxication 100 - 250 Severe Poisoning 250 - 400 Deep/possible fatal coma RBC Auto (Bld) [#/Vol]Ordere d By: Lianet Worrell on 04-07-2023 RBC (Bld) [#/Vol] 4.67 10*6/uL 4.2-5.4 [facility] Serum or plasma calcium cherelle urement (mass/volume)Ordered By: Lianet Worrell on 04-07-2023 Calcium [Mass/Vol] 9.4 mg/dL 8.5-10.[address] [facility] Serum or plasma choriogonado tropin detectionOrdered By: Lianet Worrell on 04-07-2023 HCG ( test) Ql Negative [facility] Serum or plasma creatinine m easurement (mass/volume)Ordered By: Lianet Worrell on 04-07-2023 Creatinine [Mass/Vol] 0.70 mg/dL 0.55-1.02 [facility] Comment on above: The validity of the calculated GFR & GFRAA in patients over 70 years has not been determined. Clinical correlation is essential. Serum or plasma urea nitroge n measurement (mass/volume)Ordered By: Lianet Worrell on 04-07-2023 Urea nitrogen [Mass/Vol] 11 mg/dL 7-18 [facility] Thin prep Papanicolaou smear with manual screeningOrdered By: Lianetdaryl Worrell on 04-07-2023 Thin prep Papanicolaou smear with manual screening 4 - [facility] Urine phencyclidine (PCP) de tectionOrdered By: Lianet Worrell on 04-07-2023 Phencyclidine Ql (U) Negative < 25 ng/mL [facility] Absolute lymphocyte countOrd ered By: Andreas Oliva on 01-30-2023 Lymphocytes Auto (Unsp spec) [#/Vol] 2.23 10*3/uL 0.83-4.51 [facility] Basophil percentageOrdered B y: Andreas Oliva on 01-30-2023 Basophils/100 WBC (Bld) 0.8 % 0-1 [facility] Bilirubin [Mass/Vol] 0.40 mg/dL 0.20-1.00 [facility] Comment on above: For patients on eltr ombopag therapy, use of Dimension [place] TBIL is not recommended. Chloride [Moles/Vol] 108 mmol/L 98-107 [facility] Cholesterol [Mass/Vol] 170 mg/dL <200 [facility] Comment on above: <200 mg/dL Desirable 200-240 mg/dL Borderline >240 mg/dL High Risk Eosinophils/100 WBC (Bld) 1.0 % 0-5 [facility] Glucose [Mass/Vol] 95 mg/dL 74-[address] [facility] Neutrophils (Bld) [#/Vol] 7.5 10*3/uL 2.0-7.7 [facility] Neutrophils/100 WBC (Bld) 70.2 % 47-70 [facility] Potassium [Moles/Vol] 4.1 mmol/L 3.5-5.1 [facility] Protein [Mass/Vol] 7.5 g/dL 6.4-8.[address] [facility] Sodium [Moles/Vol] 139 mmol/L 136-[address] [facility] Triglyceride [Mass/Vol] 120 mg/dL <199 [facility] Comment on above: The drugs N-Acetylcy steine and Metamizole may falsely depress this assay.Serum Triglycerides Reference Interval Normal <150 mg/dL Borderline high 150 - 199 mg/dL High 200 - 499 mg/dL Very High > or = 500 mg/dL WBC (Bld) [#/Vol] 10.6 10*3/uL 4.4-11.0 [facility] Blood erythrocytes count (nu mber/volume)Ordered By: Andreas Oliva on 01-30-2023 RBC (Bld) [#/Vol] 4.57 10*6/uL 4.2-5.4 [facility] Blood hemoglobin measurement (mass/volume)Ordered By: Andreas Oliva on 01-30-2023 Hemoglobin (Bld) [Mass/Vol] 12.9 g/dL 12.0-15.0 [facility] Blood lymphocytes/100 leukoc ytesOrdered By: Andreas Oliva on 01-30-2023 Lymphocytes/100 WBC (Bld) 21.0 % 19-41 [facility] Blood monocytes/100 leukocyt esOrdered By: Andreas Oliva on 01-30-2023 Monocytes/100 WBC (Bld) 6.6 % 0-10 [facility] Blood platelet mean volumeOr dered By: Andreas Oliva on 01-30-2023 Platelet mean volume (Bld) [Entitic vol] 9.1 fL 6.2-12.0 [facility] Determination of erythrocyte mean corpuscular volume (MCV)Ordered By: Andreas Oliva on 01-30-2023 MCV (RBC) [Entitic vol] 91.9 fL 81-99 [facility] Erythrocyte sedimentation ra teOrdered By: Andreas Oliva on 01-30-2023 ESR (Bld) [Velocity] 24 mm/h 0-30 [facility] Hematocrit Auto (Bld) [Volum e fraction]Ordered By: Andreasneal Oliva on 01-30-2023 Hematocrit (Bld) [Volume fraction] 42.0 % 37-47 [facility] Laboratory - Chemistry and C hemistry - challengeOrdered By: Andreas Oliva on 01-30-2023 ALP [Catalytic activity/Vol] 59 U/L 45-117 [facility] ALT [Catalytic activity/Vol] 29 U/L 13-56 [facility] CO2 [Moles/Vol] 26.0 mmol/L 21.0-32.0 [facility] Globulin (S) [Mass/Vol] 4.2 g/dL 2.2-4.2 [facility] Urea nitrogen/Creatinine [Mass ratio] 23.6 mg/mg 10-20 [facility] Laboratory - Hematology and Cell countsOrdered By: Andreas Oliva on 01-30-2023 Erythrocyte distribution width (RBC) [Entitic vol] 45.3 fL 35.1-43.9 [facility] Erythrocyte distribution width (RBC) [Ratio] 13.3 % 11.6-14.6 [facility] Immature granulocytes/100 WBC (Bld) 0.400 % 0.0-0.9 [facility] Comment on above: IG% - Immature Granu locytes (promyelocytes, myelocytes and metamyelocytes) > 1% indicates that a LEFT SHIFT is Present. MCH (RBC) [Entitic mass] 28.2 pg 27.0-32.0 [facility] Nucleated RBC/100 WBC (Bld) [Ratio] 0 % 0-5 [facility] MCHC Auto (RBC) [Mass/Vol]Or dered By: Andreas Oliva on 01-30-2023 MCHC (RBC) [Mass/Vol] 30.7 g/dL 32-36 [facility] No Panel InformationOrdered By: Andreas Oliva on 01-30-2023 Estimated GFR (MDRD) Amer 135 mL/min >60 [facility] Comment on above: GFR Calc Estimated GFR (MDRD) Non-Af Amer 112 mL/min >60 [facility] Comment on above: Non- GFR Calc Thyroid Stimulating Hormone (TSH) 2.19 uIU/mL 0.358-3.74 [facility] Platelets bldOrdered By: Mello Oliva on 01-30-2023 Platelets (Bld) [#/Vol] 403 10*3/uL 150-450 [facility] Serum or plasma C reactive p rotein measurement (mass/volume)Ordered By: Andreas Oliva on 01-30-2023 CRP [Mass/Vol] 11.40 mg/L 0.0-3.0 [facility] Comment on above: C-Reactive Protein ( CRP) provides useful information for thediagnosis, therapy and monitoring of inflammatory processesand associated diseases. For the evaluation of Relative Riskfor Cardiovascular Disease, a High Sensitivity CRP (HSCRP)should be ordered. Serum or plasma albumin cherelle urement (mass/volume)Ordered By: Andreas Oliva on 01-30-2023 Albumin [Mass/Vol] 3.3 g/dL 3.2-5.[address] [facility] Serum or plasma albumin/glob ulin mass ratioOrdered By: Andreas Oliva on 01-30-2023 Albumin/Globulin [Mass ratio] 0.8 {ratio} 0.9-2.4 [facility] Serum or plasma calcium cherelle urement (mass/volume)Ordered By: Andreas Oliva on 01-30-2023 Calcium [Mass/Vol] 8.8 mg/dL 8.5-10.[address] [facility] Serum or plasma cholesterol in HDL measurement (mass/volume)Ordered By: Andreas Oliva on 01-30-2023 Cholesterol in HDL [Mass/Vol] 38 mg/dL >40 [facility] Comment on above: The drugs N-Acetylcy steine and Metamizole may falsely depress this assay. Reference Range HDL <40 mg/dL Low HDL Cholesterol HDL >or= 60 mg/dL High HDL Cholesterol Serum or plasma cholesterol in VLDL measurement (mass/volume)Ordered By: Andreas Oliva on 01-30-2023 Cholesterol in VLDL [Mass/Vol] 24 mg/dL 5-40 [facility] Serum or plasma creatinine m easurement (mass/volume)Ordered By: Andreas Oliva on 01-30-2023 Creatinine [Mass/Vol] 0.68 mg/dL 0.55-1.02 [facility] Comment on above: The validity of the calculated GFR & GFRAA in patients over 70 years has not been determined. Clinical correlation is essential. Serum or plasma low density lipoprotein (LDL) cholesterol measurement (mass/volume)Ordered By: Andreas Oliva on 01-30-2023 Cholesterol in LDL [Mass/Vol] 108 mg/dL 0-130 [facility] Serum or plasma urea nitroge n measurement (mass/volume)Ordered By: Andreas Oliva on 01-30-2023 Urea nitrogen [Mass/Vol] 16 mg/dL 7-18 [facility] Thin prep Papanicolaou smear with manual screeningOrdered By: Andreas Oliva on 01-30-2023 Thin prep Papanicolaou smear with manual screening 10 U/L 15-37 [facility] Thin prep Papanicolaou smear with manual screening 5 5-15 [facility] Whole blood hemoglobin A1c/t otal hemoglobin ratio (mass fraction)Ordered By: Andreas Oliva on 01-30-2023 HbA1c (Bld) [Mass fraction] 5.1 % 3.8-5.6 [facility] Comment on above: Normal < 5.7 % Predi abetic 5.7 - 6.4 % Diabetic >or= 6.5 % Please note range changes. Absolute lymphocyte countOrd ered By: Laura Li on 12-20-2022 Lymphocytes Auto (Unsp spec) [#/Vol] 2.18 10*3/uL 0.83-4.51 [facility] Basophil percentageOrdered B y: Laura Li on 12-20-2022 Basophils/100 WBC (Bld) 0.6 % 0-1 [facility] Chloride [Moles/Vol] 110 mmol/L 98-[address] [facility] Eosinophils/100 WBC (Bld) 2.0 % 0-5 [facility] Glucose [Mass/Vol] 109 mg/dL 74-[address] [facility] Comment on above: Fasting Glucose resu lt from 100 to 125 mg/dL suggests IMPAIRED HOMEOSTASIS per A.D.A. criteria. Neutrophils (Bld) [#/Vol] 3.6 10*3/uL 2.0-7.7 [facility] Neutrophils/100 WBC (Bld) 55.7 % 47-70 [facility] Potassium [Moles/Vol] 3.6 mmol/L 3.5-5.1 [facility] Sodium [Moles/Vol] 140 mmol/L 136-[address] [facility] WBC (Bld) [#/Vol] 6.4 10*3/uL 4.4-11.[address] [facility] Blood erythrocytes count (nu mber/volume)Ordered By: Laura Li on 12-20-2022 RBC (Bld) [#/Vol] 3.98 10*6/uL 4.2-5.4 [facility] Blood hemoglobin measurement (mass/volume)Ordered By: Laura Li on 12-20-2022 Hemoglobin (Bld) [Mass/Vol] 11.5 g/dL 12.0-15.0 [facility] Blood lymphocytes/100 leukoc ytesOrdered By: Laura Li on 12-20-2022 Lymphocytes/100 WBC (Bld) 34.0 % 19-41 [facility] Blood monocytes/100 leukocyt esOrdered By: Laura Li on 12-20-2022 Monocytes/100 WBC (Bld) 7.5 % 0-10 [facility] Blood platelet mean volumeOr dered By: Laura Li on 12-20-2022 Platelet mean volume (Bld) [Entitic vol] 9.1 fL 6.2-12.0 [facility] Determination of erythrocyte mean corpuscular volume (MCV)Ordered By: Laura Li on 12-20-2022 MCV (RBC) [Entitic vol] 91.2 fL 81-99 [facility] Hematocrit Auto (Bld) [Volum e fraction]Ordered By: Laura Li on 12-20-2022 Hematocrit (Bld) [Volume fraction] 36.3 % 37-47 [facility] Laboratory - Chemistry and C hemistry - challengeOrdered By: Laura Li on 12-20-2022 CO2 [Moles/Vol] 24.0 mmol/L 21.0-32.0 [facility] Magnesium [Mass/Vol] 2.2 mg/dL 1.6-2.6 [facility] Urea nitrogen/Creatinine [Mass ratio] 20.0 mg/mg 10-20 [facility] Laboratory - Hematology and Cell countsOrdered By: Laura Li on 12-20-2022 Erythrocyte distribution width (RBC) [Entitic vol] 44.9 fL 35.1-43.9 [facility] Erythrocyte distribution width (RBC) [Ratio] 13.3 % 11.6-14.6 [facility] Immature granulocytes/100 WBC (Bld) 0.200 % 0.0-0.9 [facility] Comment on above: IG% - Immature Granu locytes (promyelocytes, myelocytes and metamyelocytes) > 1% indicates that a LEFT SHIFT is Present. MCH (RBC) [Entitic mass] 28.9 pg 27.0-32.0 [facility] Nucleated RBC/100 WBC (Bld) [Ratio] 0 % 0-5 [facility] MCHC Auto (RBC) [Mass/Vol]Or dered By: Laura Li on 12-20-2022 MCHC (RBC) [Mass/Vol] 31.7 g/dL 32-36 [facility] No Panel InformationOrdered By: Laura Li on 12-20-2022 Estimated Creatinine Clearance Calc 133.01 ml/min [facility] Estimated GFR (MDRD) Amer 155 mL/min >60 [facility] Comment on above: GFR Calc Estimated GFR (MDRD) Non-Af Amer 128 mL/min >60 [facility] Comment on above: Non- GFR Calc Platelets bldOrdered By: Lc Li on 12-20-2022 Platelets (Bld) [#/Vol] 322 10*3/uL 150-450 [facility] Serum or plasma calcium cherelle urement (mass/volume)Ordered By: Laura Li on 12-20-2022 Calcium [Mass/Vol] 8.5 mg/dL 8.5-10.[address] [facility] Serum or plasma cortisol burton surement (mass/volume)Ordered By: Laura Li on 12-20-2022 Cortisol [Mass/Vol] 13.40 ug/dL 3.44-22.45 [facility] Comment on above: Adult (AM) 5.27 - 22 .45 ug/dL Adult (PM) 3.44 - 16.76 ug/dLPlease note revised CORTISOL reference range effective 2019. Serum or plasma creatinine m easurement (mass/volume)Ordered By: Laura Li on 12-20-2022 Creatinine [Mass/Vol] 0.60 mg/dL 0.55-1.02 [facility] Comment on above: The validity of the calculated GFR & GFRAA in patients over 70 years has not been determined. Clinical correlation is essential. Serum or plasma urea nitroge n measurement (mass/volume)Ordered By: Laura Li on 12-20-2022 Urea nitrogen [Mass/Vol] 12 mg/dL 7-18 [facility] Thin prep Papanicolaou smear with manual screeningOrdered By: Laura Li on 12-20-2022 Thin prep Papanicolaou smear with manual screening 6 5-15 [facility] Absolute lymphocyte countOrd ered By: Roxy Ibarra on 12-18-2022 Lymphocytes Auto (Unsp spec) [#/Vol] 2.03 10*3/uL 0.83-4.51 [facility] Basophil percentageOrdered B y: Roxy Ibarra on 12-18-2022 Basophils/100 WBC (Bld) 0.5 % 0-1 [facility] Chloride [Moles/Vol] 108 mmol/L 98-107 [facility] Eosinophils/100 WBC (Bld) 0.7 % 0-5 [facility] Glucose [Mass/Vol] 107 mg/dL 74-[address] [facility] Comment on above: Fasting Glucose resu lt from 100 to 125 mg/dL suggests IMPAIRED HOMEOSTASIS per A.D.A. criteria. Neutrophils (Bld) [#/Vol] 8.3 10*3/uL 2.0-7.7 [facility] Neutrophils/100 WBC (Bld) 73.9 % 47-70 [facility] Potassium [Moles/Vol] 4.1 mmol/L 3.5-5.1 [facility] Sodium [Moles/Vol] 140 mmol/L 136-[address] [facility] WBC (Bld) [#/Vol] 11.2 10*3/uL 4.4-11.0 [facility] Blood erythrocytes count (nu mber/volume)Ordered By: Roxy Ibarra on 12-18-2022 RBC (Bld) [#/Vol] 4.50 10*6/uL 4.2-5.4 [facility] Blood hemoglobin measurement (mass/volume)Ordered By: Roxy Ibarra on 12-18-2022 Hemoglobin (Bld) [Mass/Vol] 12.9 g/dL 12.0-15.0 [facility] Blood lymphocytes/100 leukoc ytesOrdered By: Roxy Ibarra on 12-18-2022 Lymphocytes/100 WBC (Bld) 18.1 % 19-41 [facility] Blood monocytes/100 leukocyt esOrdered By: Roxy Ibarra on 12-18-2022 Monocytes/100 WBC (Bld) 6.4 % 0-10 [facility] Blood platelet mean volumeOr dered By: Roxy Ibarra on 12-18-2022 Platelet mean volume (Bld) [Entitic vol] 9.0 fL 6.2-12.0 [facility] Determination of erythrocyte mean corpuscular volume (MCV)Ordered By: Roxy Ibarra on 12-18-2022 MCV (RBC) [Entitic vol] 91.1 fL 81-99 [facility] Hematocrit Auto (Bld) [Volum e fraction]Ordered By: Roxy Ibarra on 12-18-2022 Hematocrit (Bld) [Volume fraction] 41.0 % 37-47 [facility] Laboratory - Chemistry and C hemistry - challengeOrdered By: Roxy Ibarra on 12-18-2022 CO2 [Moles/Vol] 29.0 mmol/L 21.0-32.0 [facility] Urea nitrogen/Creatinine [Mass ratio] 17.9 mg/mg 10-20 [facility] Laboratory - Hematology and Cell countsOrdered By: Roxy Ibarra on 12-18-2022 Erythrocyte distribution width (RBC) [Entitic vol] 46.5 fL 35.1-43.9 [facility] Erythrocyte distribution width (RBC) [Ratio] 13.7 % 11.6-14.6 [facility] Immature granulocytes/100 WBC (Bld) 0.400 % 0.0-0.9 [facility] Comment on above: IG% - Immature Granu locytes (promyelocytes, myelocytes and metamyelocytes) > 1% indicates that a LEFT SHIFT is Present. MCH (RBC) [Entitic mass] 28.7 pg 27.0-32.0 [facility] Nucleated RBC/100 WBC (Bld) [Ratio] 0 % 0-5 [facility] MCHC Auto (RBC) [Mass/Vol]Or dered By: Roxy Ibarra on 12-18-2022 MCHC (RBC) [Mass/Vol] 31.5 g/dL 32-36 [facility] No Panel InformationOrdered By: Roxy Ibarra on 12-18-2022 [place] Level 0.60 mmol/L 0.60-1.20 [facility] D-Dimer Quantitative (PE/DVT) < 0.27 FEU/ug/m 0.27-0.49 [facility] Comment on above: NORMAL D-Dimer level (<0.50) indicates no DVT or PE. Estimated GFR (MDRD) Amer 137 mL/min >60 [facility] Comment on above: GFR Calc Estimated GFR (MDRD) Non-Af Amer 113 mL/min >60 [facility] Comment on above: Non- GFR Calc Troponin I High Sensitivity 3 pg/mL 3.0-54.0 [facility] Comment on above: Please Note: New Renetta t Units and Gender Specific Reference Ranges. For more information see Policy Stat Procedure [place] High Sensitivity Troponin (TNIH) and attachments. Platelets bldOrdered By: Jada Ibarra on 12-18-2022 Platelets (Bld) [#/Vol] 404 10*3/uL 150-450 [facility] Serum or plasma calcium cherelle urement (mass/volume)Ordered By: Roxy Ibarra on 12-18-2022 Calcium [Mass/Vol] 9.2 mg/dL 8.5-10.[address] [facility] Serum or plasma creatinine m easurement (mass/volume)Ordered By: Roxy Ibarra on 12-18-2022 Creatinine [Mass/Vol] 0.67 mg/dL 0.55-1.02 [facility] Comment on above: The validity of the calculated GFR & GFRAA in patients over 70 years has not been determined. Clinical correlation is essential. Serum or plasma urea nitroge n measurement (mass/volume)Ordered By: Roxy Ibarra on 12-18-2022 Urea nitrogen [Mass/Vol] 12 mg/dL 7-18 [facility] Thin prep Papanicolaou smear with manual screeningOrdered By: Roxy Ibarra on 12-18-2022 Thin prep Papanicolaou smear with manual screening 3 5-15 [facility] Basophil percentageOrdered B y: DANIEL BETANCUR on 12-12-2022 Bilirubin [Mass/Vol] 0.80 mg/dL 0.20-1.00 [facility] Comment on above: For patients on eltr ombopag therapy, use of Dimension [place] TBIL is not recommended. Chloride [Moles/Vol] 105 mmol/L 98-107 [facility] Glucose [Mass/Vol] 96 mg/dL 74-[address] [facility] Potassium [Moles/Vol] 4.4 mmol/L 3.5-5.1 [facility] Protein [Mass/Vol] 7.5 g/dL 6.4-8.[address] [facility] Sodium [Moles/Vol] 140 mmol/L 136-[address] [facility] Laboratory - Chemistry and C hemistry - challengeOrdered By: DANIEL BETANCUR on 12-12-2022 ALP [Catalytic activity/Vol] 74 U/L 45-117 [facility] ALT [Catalytic activity/Vol] 54 U/L 13-56 [facility] CO2 [Moles/Vol] 28.0 mmol/L 21.0-32.0 [facility] Globulin (S) [Mass/Vol] 3.8 g/dL 2.2-4.2 [facility] Lipase [Catalytic activity/Vol] 32 U/L 13-75 [facility] Comment on above: Please note:LIPASE r evised reference range effective 22. New Lipase methodology. Expected to produce lower values than the previous assay method. NEW Reference Range: 13 - 75 U/L Urea nitrogen/Creatinine [Mass ratio] 12.5 mg/mg 12-08 [facility] No Panel InformationOrdered By: [facility] on 12-12-2022 Estimated GFR (MDRD) Amer 111 mL/min >60 [facility] Comment on above: GFR Calc Estimated GFR (MDRD) Non-Af Amer 92 mL/min >60 [facility] Comment on above: Non- GFR Calc Insulin Level 80.9 mU/L 2.6-37.6 [facility] [place] Level 0.60 mmol/L 0.60-1.20 [facility] Serum or plasma albumin cherelle urement (mass/volume)Ordered By: [facility] on 12-12-2022 Albumin [Mass/Vol] 3.7 g/dL 3.2-5.[address] [facility] Serum or plasma albumin/glob ulin mass ratioOrdered By: [facility] on 12-12-2022 Albumin/Globulin [Mass ratio] 1.0 {ratio} 0.9-2.4 [facility] Serum or plasma calcium cherelle urement (mass/volume)Ordered By: [facility] on 12-12-2022 Calcium [Mass/Vol] 9.5 mg/dL 8.5-10.[address] [facility] Serum or plasma creatinine m easurement (mass/volume)Ordered By: [facility] on 12-12-2022 Creatinine [Mass/Vol] 0.80 mg/dL 0.55-1.02 [facility] Comment on above: The validity of the calculated GFR & GFRAA in patients over 70 years has not been determined. Clinical correlation is essential. Serum or plasma urea nitroge n measurement (mass/volume)Ordered By: [facility] on 12-12-2022 Urea nitrogen [Mass/Vol] 10 mg/dL 7-18 [facility] Thin prep Papanicolaou smear with manual screeningOrdered By: [facility] on 12-12-2022 Thin prep Papanicolaou smear with manual screening 21 U/L 15-37 [facility] Thin prep Papanicolaou smear with manual screening 7 5-15 [facility] Absolute lymphocyte countOrd ered By: Rodolfo Das on 12-09-2022 Lymphocytes Auto (Unsp spec) [#/Vol] 2.14 10*3/uL 0.83-4.51 [facility] Basophil percentageOrdered B y: Rodolfo Das on 12-09-2022 Basophil percentage 5-10 SEEN /hpf 0-5 [facility] Basophils/100 WBC (Bld) 0.5 % 0-1 [facility] Bilirubin [Mass/Vol] 0.70 mg/dL 0.20-1.00 [facility] Comment on above: For patients on eltr ombopag therapy, use of Dimension [place] TBIL is not recommended. Chloride [Moles/Vol] 106 mmol/L 98-107 [facility] Eosinophils/100 WBC (Bld) 0.7 % 0-5 [facility] Glucose [Mass/Vol] 91 mg/dL 74-[address] [facility] Neutrophils (Bld) [#/Vol] 7.5 10*3/uL 2.0-7.7 [facility] Neutrophils/100 WBC (Bld) 71.2 % 47-70 [facility] Potassium [Moles/Vol] 4.3 mmol/L 3.5-5.1 [facility] Protein [Mass/Vol] 7.6 g/dL 6.4-8.[address] [facility] Sodium [Moles/Vol] 138 mmol/L 136-[address] [facility] WBC (Bld) [#/Vol] 10.5 10*3/uL 4.4-11.0 [facility] Beta hCG serum qualOrdered B y: Rodolfo Das on 12-09-2022 Beta HCG ( test) Ql Negative [facility] Bilirubin Test strip Ql (U)O rdered By: Rodolfo Das on 12-09-2022 Bilirubin Ql (U) Negative Negative [facility] Blood erythrocytes count (nu mber/volume)Ordered By: Rodolfo Das on 12-09-2022 RBC (Bld) [#/Vol] 4.66 10*6/uL 4.2-5.4 [facility] Blood hemoglobin measurement (mass/volume)Ordered By: Rodolfo Das on 12-09-2022 Hemoglobin (Bld) [Mass/Vol] 13.4 g/dL 12.0-15.0 [facility] Blood lymphocytes/100 leukoc ytesOrdered By: Rodolfo Das on 12-09-2022 Lymphocytes/100 WBC (Bld) 20.4 % 19-41 [facility] Blood monocytes/100 leukocyt esOrdered By: Rodolfo Das on 12-09-2022 Monocytes/100 WBC (Bld) 6.9 % 0-10 [facility] Blood platelet mean volumeOr dered By: Rodolfo Das on 12-09-2022 Platelet mean volume (Bld) [Entitic vol] 8.9 fL 6.2-12.0 [facility] Culture, urineOrdered By: Vj Das on 12-09-2022 Bacteria identified Cx Nom (U) Positive [facility] Bacteria identified Cx Nom (U) Positive [facility] Determination of erythrocyte mean corpuscular volume (MCV)Ordered By: Rodolfo Das on 12-09-2022 MCV (RBC) [Entitic vol] 89.9 fL 81-99 [facility] Hematocrit Auto (Bld) [Volum e fraction]Ordered By: Rodolfo Das on 12-09-2022 Hematocrit (Bld) [Volume fraction] 41.9 % 37-47 [facility] Ketones Test strip Ql (U)Ord ered By: Rodolfo Das on 12-09-2022 Ketones Ql (U) 5 mg/dl Negative [facility] Laboratory - Chemistry and C hemistry - challengeOrdered By: Rodolfo Das on 12-09-2022 ALP [Catalytic activity/Vol] 69 U/L 45-117 [facility] ALT [Catalytic activity/Vol] 52 U/L 13-56 [facility] CO2 [Moles/Vol] 28.0 mmol/L 21.0-32.0 [facility] Globulin (S) [Mass/Vol] 4.0 g/dL 2.2-4.2 [facility] Lipase [Catalytic activity/Vol] 50 U/L 13-75 [facility] Comment on above: Please note:LIPASE r evised reference range effective 22. New Lipase methodology. Expected to produce lower values than the previous assay method. NEW Reference Range: 13 - 75 U/L Urea nitrogen/Creatinine [Mass ratio] 18.9 mg/mg 10-20 [facility] Laboratory - Hematology and Cell countsOrdered By: Rodolfo Das on 12-09-2022 Erythrocyte distribution width (RBC) [Entitic vol] 45.8 fL 35.1-43.9 [facility] Erythrocyte distribution width (RBC) [Ratio] 13.9 % 11.6-14.6 [facility] Immature granulocytes/100 WBC (Bld) 0.300 % 0.0-0.9 [facility] Comment on above: IG% - Immature Granu locytes (promyelocytes, myelocytes and metamyelocytes) > 1% indicates that a LEFT SHIFT is Present. MCH (RBC) [Entitic mass] 28.8 pg 27.0-32.0 [facility] Nucleated RBC/100 WBC (Bld) [Ratio] 0 % 0-5 [facility] MCHC Auto (RBC) [Mass/Vol]Or dered By: Rodolfo Das on 12-09-2022 MCHC (RBC) [Mass/Vol] 32.0 g/dL 32-36 [facility] Mucus LM Ql (Urine sed)Order ed By: Rodolfo Das on 12-09-2022 Mucus Ql (Urine sed) 0 SEEN /hpf [facility] Nitrite Test strip Ql (U)Ord ered By: Rodolfo Das on 12-09-2022 Nitrite Ql (U) Negative Negative [facility] No Panel InformationOrdered By: Rodolfo Das on 12-09-2022 Estimated Creatinine Clearance Calc 120.15 ml/min [facility] Estimated GFR (MDRD) Amer 132 mL/min >60 [facility] Comment on above: GFR Calc Estimated GFR (MDRD) Non-Af Amer 109 mL/min >60 [facility] Comment on above: Non- GFR Calc Platelets bldOrdered By: Vilma Das on 12-09-2022 Platelets (Bld) [#/Vol] 386 10*3/uL 150-450 [facility] Protein Test strip Ql (U)Ord ered By: Rodolfo Das on 12-09-2022 Protein Ql (U) 30 mg/dl Negative [facility] Serum or plasma albumin cherelle urement (mass/volume)Ordered By: Rodolfo Das on 12-09-2022 Albumin [Mass/Vol] 3.6 g/dL 3.2-5.[address] [facility] Serum or plasma albumin/glob ulin mass ratioOrdered By: Rodolfo Das on 12-09-2022 Albumin/Globulin [Mass ratio] 0.9 {ratio} 0.9-2.4 [facility] Serum or plasma calcium cherelle urement (mass/volume)Ordered By: Rodolfo Das on 12-09-2022 Calcium [Mass/Vol] 9.2 mg/dL 8.5-10.[address] [facility] Serum or plasma creatinine m easurement (mass/volume)Ordered By: Rodolfo Das on 12-09-2022 Creatinine [Mass/Vol] 0.69 mg/dL 0.55-1.02 [facility] Comment on above: The validity of the calculated GFR & GFRAA in patients over 70 years has not been determined. Clinical correlation is essential. Serum or plasma urea nitroge n measurement (mass/volume)Ordered By: Rodolfo Das on 12-09-2022 Urea nitrogen [Mass/Vol] 13 mg/dL 7-18 [facility] Squamous epithelial cells de tection in urine sediment by light microscopyOrdered By: Rodolfo Das on 12-09-2022 Epithelial cells.squamous LM Ql (Urine sed) 0 SEEN /hpf 5-10 [facility] Thin prep Papanicolaou smear with manual screeningOrdered By: Rodolfo Das on 12-09-2022 Thin prep Papanicolaou smear with manual screening 20 U/L 15-37 [facility] Thin prep Papanicolaou smear with manual screening 4 5-15 [facility] Urine blood detectionOrdered By: Rodolfo Das on 12-09-2022 RBC Ql (U) 10 /ul Negative [facility] RBC Ql (U) 0 SEEN /hpf 0-5 [facility] Urine clarityOrdered By: Vilma Das on 12-09-2022 Clarity (U) Sl. Cloudy Clear [facility] Urine color determinationOrd ered By: Rodolfo Das on 12-09-2022 Color (U) Yellow Yellow [facility] Urine glucose detectionOrder ed By: Rodolfo Das on 12-09-2022 Glucose Ql (U) Normal mg/dl Normal [facility] Urine leukocyte esterase det ection by dipstickOrdered By: Rodolfo Das on 12-09-2022 Leukocyte esterase Test strip Ql (U) 500 /ul Negative [facility] Urine pHOrdered By: Rodolfo alfaro on 12-09-2022 pH (U) 6.0 [pH] 5.0 - 8.0 [facility] Urine sediment bacteria coun t by microscopy (number/high power field)Ordered By: Rodolfo Das on 12-09-2022 Bacteria LM.HPF (Urine sed) [#/Area] 1 /[HPF] None Seen [facility] Urine specific gravity measu rementOrdered By: Rodolfo Das on 12-09-2022 Specific gravity (U) [Rel density] 1.025 1.002-1.030 [facility] Urobilinogen Auto test strip Ql (U)Ordered By: Rodolfo Das on 12-09-2022 Urobilinogen Ql (U) Normal mg/dl Normal [facility] .Auto Diffon 12-04-2022 Basophil, Absolute 0.0 10 3/mcL Normal 0.0-0.2 [facility] ([place]) Comment on above: Performed By: #### B JULIO CESAR BROWN, ANEU, GFR, CBC, ADIFF #### [address] [address] Basophils/100 WBC (Bld) 0.5 % Normal 0.0-2.5 [facility] ([place]) Comment on above: Performed By: #### B JULIO CESAR BROWN, ANEU, GFR, CBC, ADIFF #### [address] [address] Eosinophil, Absolute 0.1 10 3/mcL Normal 0.0-0.4 [facility] ([place]) Comment on above: Performed By: #### B JULIO CESAR BROWN, ANEU, GFR, CBC, ADIFF #### [address] [address] Eosinophils/100 WBC (Bld) 1.0 % Normal 0.0-7.0 [facility] ([place]) Comment on above: Performed By: #### B JULIO CESAR BROWN, ANEU, GFR, CBC, ADIFF #### [address] [address] Lymphocyte, Absolute 2.6 10 3/mcL Normal 0.8-3.9 [facility] ([place]) Comment on above: Performed By: #### B JULIO CESAR BROWN, ANEU, GFR, CBC, ADIFF #### [address] [address] Lymphocytes/100 WBC (Bld) 26.3 % Normal 10.0-50.0 [facility] ([place]) Comment on above: Performed By: #### B JULIO CESAR BROWN, ANEU, GFR, CBC, ADIFF #### [address] [address] Monocyte, Absolute 0.7 10 3/mcL Normal 0.2-1.0 [facility] ([place]) Comment on above: Performed By: #### B JULIO CESAR BROWN, ANEU, GFR, CBC, ADIFF #### [address] [address] Monocytes/100 WBC (Bld) 7.1 % Normal 1.7-13.0 [facility] ([place]) Comment on above: Performed By: #### B JULIO CESAR BROWN, ANEU, GFR, CBC, ADIFF #### [address] [address] Neutrophils/100 WBC (Bld) 65.1 % Normal 37.0-80.0 [facility] ([place]) Comment on above: Performed By: #### B JULIO CESAR BROWN, ANEU, GFR, CBC, ADIFF #### [address] [address] .GFRon 12-04-2022 GFR 123 ml/min/1.73sqm Normal [facility] ([place]) Comment on above: Result Comment: GFR Population [...] CESAR BROWN, ANEU, GFR, CBC, ADIFF #### [address] [address] GFR Non- 101 ml/min/1.73sqm Normal [facility] ([place]) Comment on above: Result Comment: GFR Population [...] CESAR BROWN, ANEU, GFR, CBC, ADIFF #### [address] [address] .MDWon 12-04-2022 Monocyte Distribution Width 17.49 Normal 0.00-20.00 [facility] ([place]) Comment on above: Result Comment: For ED adult patients suspected of sepsis, MDW<=20.0 does not rule out sepsis or risk of sepsis Performed By: #### B JULIO CESAR BROWN, ANEU, GFR, CBC, ADIFF #### [address] [address] .NEUABSon 12-04-2022 Neutrophil, Absolute 6.3 10 3/mcL High 2.9-6.2 [facility] ([place]) Comment on above: Performed By: #### B MD STEPHANIEW, ANEU, GFR, CBC, ADIFF #### [address] [address] BMPon 12-04-2022 BUN/Creatinine Ratio 17 ratio Normal 7-27 [facility] ([place]) Comment on above: Performed By: #### B JULIO CESAR BROWN, BAKARI, GFR, CBC, ADIFF #### [address] [address] Calcium [Mass/Vol] 9.2 mg/dL Normal 8.4-10.2 [facility] ([place]) Comment on above: Performed By: #### B JULIO CESAR BROWN, BAKARI, GFR, CBC, ADIFF #### [address] [address] Chloride [Moles/Vol] 104 mmol/L Normal 98-107 [facility] ([place]) Comment on above: Performed By: #### B JULIO CESAR BROWN, BAKARI, GFR, CBC, ADIFF #### [address] [address] CO2 [Moles/Vol] 26 mmol/L Normal 22-29 [facility] ([place]) Comment on above: Performed By: #### B JULIO CESAR BROWN, BAKARI, GFR, CBC, ADIFF #### [address] [address] Creatinine [Mass/Vol] 0.70 mg/dL Normal 0.55-1.02 [facility] ([place]) Comment on above: Performed By: #### B JULIO CESAR BROWN, BAKARI, GFR, CBC, ADIFF #### [address] [address] Electrolyte Balance 11.0 mEq/L Normal 4.0-15.0 [facility] ([place]) Comment on above: Performed By: #### B JULIO CESAR BROWN, BAKARI, GFR, CBC, ADIFF #### [address] [address] Glucose [Mass/Vol] 126 mg/dL High 70-105 [facility] ([place]) Comment on above: Performed By: #### B JULIO CESAR BROWN, ANEU, GFR, CBC, ADIFF #### [address] [address] Potassium [Moles/Vol] 4.5 mmol/L Normal 3.5-5.1 [facility] ([place]) Comment on above: Performed By: #### B JULIO CESAR BROWN, BAKARI, GFR, CBC, ADIFF #### [address] [address] Sodium [Moles/Vol] 141 mmol/L Normal 136-145 [facility] ([place]) Comment on above: Performed By: #### B JULIO CESAR BROWN, BAKARI, GFR, CBC, ADIFF #### [address] [address] Urea nitrogen [Mass/Vol] 12 mg/dL Normal 7-18 [facility] ([place]) Comment on above: Performed By: #### B JULIO CESAR BROWN, BAKARI, GFR, CBC, ADIFF #### [address] [address] CBCon 12-04-2022 Erythrocyte distribution width (RBC) [Ratio] 14.4 % Normal 11.5-14.5 [facility] ([place]) Comment on above: Performed By: #### B JULIO CESAR BROWN, BAKARI, GFR, CBC, ADIFF #### [address] [address] Hematocrit (Bld) [Volume fraction] 39.4 % Normal 37.0-47.0 [facility] ([place]) Comment on above: Performed By: #### B JULIO CESAR BROWN, BAKARI, GFR, CBC, ADIFF #### [address] [address] Hgb 13.1 G/dL Normal 12.0-16.0 [facility] ([place]) Comment on above: Performed By: #### B JULIO CESAR BROWN ANEU, GFR, CBC, ADIFF #### [address] [address] MCH (RBC) [Entitic mass] 29.2 pg Normal 27.0-31.2 [facility] ([place]) Comment on above: Performed By: #### B JULIO CESAR BROWN, BAKARI, GFR, CBC, ADIFF #### [address] [address] MCHC 33.2 G/dL Normal 33.0-37.0 [facility] ([place]) Comment on above: Performed By: #### B JULIO CESAR BROWN, BAKARI, GFR, CBC, ADIFF #### [address] [address] MCV (RBC) [Entitic vol] 87.9 fL Normal 80.0-94.0 [facility] ([place]) Comment on above: Performed By: #### B JULIO CESAR BROWN, BAKARI, GFR, CBC, ADIFF #### [address] [address] Platelet 373 10 3/mcL Normal 130-400 [facility] ([place]) Comment on above: Performed By: #### B JULIO CESAR BROWN, BAKARI, GFR, CBC, ADIFF #### [address] [address] Platelet mean volume (Bld) [Entitic vol] 7.2 fL Low 7.4-10.4 [facility] ([place]) Comment on above: Performed By: #### B JULIO CESAR BROWN, BAKARI, GFR, CBC, ADIFF #### [address] [address] RBC 4.48 10 6/mcL Normal 4.20-5.40 [facility] ([place]) Comment on above: Performed By: #### B JULIO CESAR BROWN, BAKARI, GFR, CBC, ADIFF #### [address] [address] WBC 9.7 10 3/mcL Normal 4.6-10.8 [facility] ([place]) Comment on above: Performed By: #### B JULIO CESAR BROWN, ANEU, GFR, CBC, ADIFF #### [address] [address] [address] HEAD OR BRAIN W/O CONTRAS Ton [...] 12/04/2022 7:24:52 PM Ordering Provider: DEB [facility] ([place]) Glucose Glucometer (BldC) [M ass/Vol]Ordered By: Ozzy Bright on 11-23-2022 Glucose [Mass/Vol] 102 mg/dL 74-[address] [facility] Comment on above: MANAGEMENT OF PATIEN T CARE PER NURSING PROTOCOL Basophil percentageOrdered B y: Ozzy Bright on 11-22-2022 Chloride [Moles/Vol] 109 mmol/L 98-107 [facility] Glucose [Mass/Vol] 89 mg/dL 74-[address] [facility] Potassium [Moles/Vol] 3.8 mmol/L 3.5-5.1 [facility] Sodium [Moles/Vol] 139 mmol/L 136-[address] [facility] Glucose Glucometer (BldC) [M ass/Vol]Ordered By: Ozzy Bright on 11-22-2022 Glucose [Mass/Vol] 73 mg/dL 74-[address] [facility] Comment on above: MANAGEMENT OF PATIEN T CARE PER NURSING PROTOCOL Laboratory - Chemistry and C hemistry - challengeOrdered By: Ozzy Bright on 11-22-2022 CO2 [Moles/Vol] 25.0 mmol/L 21.0-32.0 [facility] Urea nitrogen/Creatinine [Mass ratio] 16.7 mg/mg 10- [facility] No Panel InformationOrdered By: Ozzy Bright on 11-22-2022 Estimated GFR (MDRD) Amer 140 mL/min >60 [facility] Comment on above: GFR Calc Estimated GFR (MDRD) Non-Af Amer 115 mL/min >60 [facility] Comment on above: Non- GFR Calc Serum or plasma calcium cherelle urement (mass/volume)Ordered By: Ozzy Bright on 11-22-2022 Calcium [Mass/Vol] 9.4 mg/dL 8.5-10.[address] [facility] Serum or plasma creatinine m easurement (mass/volume)Ordered By: Ozzy Bright on 11-22-2022 Creatinine [Mass/Vol] 0.66 mg/dL 0.55-1.02 [facility] Comment on above: The validity of the calculated GFR & GFRAA in patients over 70 years has not been determined. Clinical correlation is essential. Serum or plasma urea nitroge n measurement (mass/volume)Ordered By: Ozzy Bright on 11-22-2022 Urea nitrogen [Mass/Vol] 11 mg/dL -18 [facility] Thin prep Papanicolaou smear with manual screeningOrdered By: Ozzy Brihgt on 11-22-2022 Thin prep Papanicolaou smear with manual screening 5 -15 [facility] Cervical or vagninal specime n microscopic examination by cytology stain (reported asOrdered By: Zeus Miller on 10-03-2022 Cytology report Cyto stain Doc (Cvx/Vag) Comment . [facility] Comment on above: The Pap smear is a s creening test designed to aid in thedetection of premalignant and malignant conditions of theuterine cervix. It is not a diagnostic procedure andshould not be used as the sole means of detecting cervicalcancer. Both false-positive and false-negative reports dooccur. Laboratory - CytologyOrdered By: Zeus Miller on 10-03-2022 Bindery Cutter Operator Cyto stain Nom (Cvx/Vag) [ID] Comment . [facility] Comment on above: Naina Pinedo, Cytot echnologist (ASCP) Laboratory - Miscellaneous t estsOrdered By: Zeus Miller on 10-03-2022 Service comment (Unsp spec) [Interp] Comment . [facility] Comment on above: This liquid based Th inPrep(R) pap test was screened withthe use of an image guided system. Service comment (Unsp spec) [Interp] . . [facility] No Panel InformationOrdered By: Zeus Miller on 10-03-2022 Human Papillomavirus Screen Comment . [facility] Comment on above: The HPV DNA reflex c adria were not met with this specimenresult therefore, no HPV testing was performed.Performed at: [address] [id number] Director: Idalia Yoo MD, Phone: [phone] Pathology report final diagnosis Narrative Comment . [facility] Comment on above: NEGATIVE FOR INTRAEP ITHELIAL LESION OR MALIGNANCY. Basophil percentageOrdered B y: Andreas Friend on 09-19-2022 Bilirubin [Mass/Vol] 0.80 mg/dL 0.20-1.00 [facility] Comment on above: For patients on eltr ombopag therapy, use of Dim[place] TBIL is not recommended. Chloride [Moles/Vol] 108 mmol/L 98-107 [facility] Cholesterol [Mass/Vol] 232 mg/dL <200 [facility] Comment on above: <200 mg/dL Desirable 200-240 mg/dL Borderline >240 mg/dL High Risk Glucose [Mass/Vol] 94 mg/dL 74-[address] [facility] Potassium [Moles/Vol] 4.5 mmol/L 3.5-5.1 [facility] Protein [Mass/Vol] 7.4 g/dL 6.4-8.[address] [facility] Sodium [Moles/Vol] 138 mmol/L 136-[address] [facility] Triglyceride [Mass/Vol] 215 mg/dL <199 [facility] Comment on above: The drugs N-Acetylcy steine and Metamizole may falsely depress this assay.Serum Triglycerides Reference Interval Normal <150 mg/dL Borderline high 150 - 199 mg/dL High 200 - 499 mg/dL Very High > or = 500 mg/dL WBC (Bld) [#/Vol] 8.5 10*3/uL 4.4-11.[address] [facility] Blood erythrocytes count (nu mber/volume)Ordered By: Andreas Oliva on 09-19-2022 RBC (Bld) [#/Vol] 4.65 10*6/uL 4.2-5.4 [facility] Blood hemoglobin measurement (mass/volume)Ordered By: Andreas Oliva on 09-19-2022 Hemoglobin (Bld) [Mass/Vol] 13.6 g/dL 12.0-15.0 [facility] Blood platelet mean volumeOr dered By: Andreas Oliva on 09-19-2022 Platelet mean volume (Bld) [Entitic vol] 9.0 fL 6.2-12.0 [facility] Determination of erythrocyte mean corpuscular volume (MCV)Ordered By: Andreas Oliva on 09-19-2022 MCV (RBC) [Entitic vol] 88.4 fL 81-99 [facility] Hematocrit Auto (Bld) [Volum e fraction]Ordered By: Andreas Oliva on 09-19-2022 Hematocrit (Bld) [Volume fraction] 41.1 % 37-47 [facility] Laboratory - Chemistry and C hemistry - challengeOrdered By: Andreas Oliva on 09-19-2022 ALP [Catalytic activity/Vol] 75 U/L 45-117 [facility] ALT [Catalytic activity/Vol] 199 U/L 13-56 [facility] CO2 [Moles/Vol] 25.0 mmol/L 21.0-32.0 [facility] Cobalamin (Vitamin B12) [Mass/Vol] 1606 pg/mL 211-911 [facility] Free T4 [Mass/Vol] 1.12 ng/dL 0.76-1.[address] [facility] Globulin (S) [Mass/Vol] 3.7 g/dL 2.2-4.2 [facility] Urea nitrogen/Creatinine [Mass ratio] 13.4 mg/mg 10-20 [facility] Laboratory - Hematology and Cell countsOrdered By: Andreas Oliva on 09-19-2022 Erythrocyte distribution width (RBC) [Entitic vol] 43.0 fL 35.1-43.9 [facility] Erythrocyte distribution width (RBC) [Ratio] 13.3 % 11.6-14.6 [facility] MCH (RBC) [Entitic mass] 29.2 pg 27.0-32.0 [facility] MCHC Auto (RBC) [Mass/Vol]Or dered By: Andreas Oliva on 09-19-2022 MCHC (RBC) [Mass/Vol] 33.1 g/dL 32-36 [facility] No Panel InformationOrdered By: Andreas Oliva on 09-19-2022 Estimated GFR (MDRD) Amer 109 mL/min >60 [facility] Comment on above: GFR Calc Estimated GFR (MDRD) Non-Af Amer 90 mL/min >60 [facility] Comment on above: Non- GFR Calc Thyroid Stimulating Hormone (TSH) 3.75 uIU/mL 0.358-3.74 [facility] Vitamin D 25-Hydroxy 16.1 ng/mL [facility] Comment on above: Vitamin D 25(OH) Sta tus Range Deficiency <20 ng/mL (50nmol/L) Insufficiency 20 - 30 ng/mL (50 - 75 nmol/L) Sufficiency 30 - 100 ng/mL (75 - 250 nmol/L) Toxicity >100 ng/mL (>250 nmol/L) Platelets bldOrdered By: Mello Oliva on 09-19-2022 Platelets (Bld) [#/Vol] 337 10*3/uL 150-450 [facility] Serum or plasma albumin cherelle urement (mass/volume)Ordered By: Andreas Oliva on 09-19-2022 Albumin [Mass/Vol] 3.7 g/dL 3.2-5.[address] [facility] Serum or plasma albumin/glob ulin mass ratioOrdered By: Andreas Oliva on 09-19-2022 Albumin/Globulin [Mass ratio] 1.0 {ratio} 0.9-2.4 [facility] Serum or plasma calcium cherelle urement (mass/volume)Ordered By: Andreas Oliva on 09-19-2022 Calcium [Mass/Vol] 9.5 mg/dL 8.5-10.[address] [facility] Serum or plasma cholesterol in HDL measurement (mass/volume)Ordered By: Andreas Oliva on 09-19-2022 Cholesterol in HDL [Mass/Vol] 33 mg/dL >40 [facility] Comment on above: The drugs N-Acetylcy steine and Metamizole may falsely depress this assay. Reference Range HDL <40 mg/dL Low HDL Cholesterol HDL >or= 60 mg/dL High HDL Cholesterol Serum or plasma cholesterol in VLDL measurement (mass/volume)Ordered By: Andreas Oliva on 09-19-2022 Cholesterol in VLDL [Mass/Vol] 43 mg/dL 5-40 [facility] Serum or plasma creatinine m easurement (mass/volume)Ordered By: Andreas Oliva on 09-19-2022 Creatinine [Mass/Vol] 0.82 mg/dL 0.55-1.02 [facility] Comment on above: The validity of the calculated GFR & GFRAA in patients over 70 years has not been determined. Clinical correlation is essential. Serum or plasma low density lipoprotein (LDL) cholesterol measurement (mass/volume)Ordered By: Andreas Oliva on 09-19-2022 Cholesterol in LDL [Mass/Vol] 156 mg/dL 0-130 [facility] Serum or plasma urea nitroge n measurement (mass/volume)Ordered By: Andreas Oliva on 09-19-2022 Urea nitrogen [Mass/Vol] 11 mg/dL 7-18 [facility] Thin prep Papanicolaou smear with manual screeningOrdered By: Andreas Oliva on 09-19-2022 Thin prep Papanicolaou smear with manual screening 94 U/L 15-37 [facility] Thin prep Papanicolaou smear with manual screening 5 5-15 [facility] Whole blood hemoglobin A1c/t otal hemoglobin ratio (mass fraction)Ordered By: Andreas Oliva on 09-19-2022 HbA1c (Bld) [Mass fraction] 6.7 % 3.8-5.6 [facility] Comment on above: Normal < 5.7 % Predi abetic 5.7 - 6.4 % Diabetic >or= 6.5 % Please note range changes. Absolute lymphocyte countOrd ered By: Dr. Etienne on 08-15-2022 Lymphocytes Auto (Unsp spec) [#/Vol] 2.71 10*3/uL 0.83-4.51 [facility] Basophil percentageOrdered B y: Dr. Etienne on 08-15-2022 Basophils/100 WBC (Bld) 0.5 % 0-1 [facility] Bilirubin [Mass/Vol] 0.40 mg/dL 0.20-1.00 [facility] Comment on above: For patients on eltr ombopag therapy, use of [place] TBIL is not recommended. Chloride [Moles/Vol] 109 mmol/L 98-107 [facility] Eosinophils/100 WBC (Bld) 1.8 % 0-5 [facility] Glucose [Mass/Vol] 121 mg/dL 74-[address] [facility] Comment on above: Fasting Glucose resu lt from 100 to 125 mg/dL suggests IMPAIRED HOMEOSTASIS per A.D.A. criteria. Neutrophils (Bld) [#/Vol] 5.7 10*3/uL 2.0-7.7 [facility] Neutrophils/100 WBC (Bld) 59.6 % 47-70 [facility] Potassium [Moles/Vol] 3.9 mmol/L 3.5-5.1 [facility] Comment on above: Slight Hemolysis, Re sult may be falsely increased. Protein [Mass/Vol] 7.1 g/dL 6.4-8.[address] [facility] Sodium [Moles/Vol] 140 mmol/L 136-[address] [facility] WBC (Bld) [#/Vol] 9.6 10*3/uL 4.4-11.[address] [facility] Basophil percentage 0-5 SEEN /hpf 0-5 [facility] Beta hCG serum qualOrdered B y: Dr. Etienne on 08-15-2022 Beta HCG ( test) Ql Negative [facility] Bilirubin Test strip Ql (U)O rdered By: Dr. Etienne on 08-15-2022 Bilirubin Ql (U) Negative Negative [facility] Blood erythrocytes count (nu mber/volume)Ordered By: Dr. Etienne on 08-15-2022 RBC (Bld) [#/Vol] 4.39 10*6/uL 4.2-5.4 [facility] Blood hemoglobin measurement (mass/volume)Ordered By: Dr. Etienne on 08-15-2022 Hemoglobin (Bld) [Mass/Vol] 12.6 g/dL 12.0-15.0 [facility] Blood lymphocytes/100 leukoc ytesOrdered By: Dr. Etienne on 08-15-2022 Lymphocytes/100 WBC (Bld) 28.3 % 19-41 [facility] Blood monocytes/100 leukocyt esOrdered By: Dr. Etienne on 08-15-2022 Monocytes/100 WBC (Bld) 9.2 % 0-10 [facility] Blood platelet mean volumeOr dered By: Dr. Etienne on 08-15-2022 Platelet mean volume (Bld) [Entitic vol] 9.0 fL 6.2-12.0 [facility] Determination of erythrocyte mean corpuscular volume (MCV)Ordered By: Dr. Etienne on 08-15-2022 MCV (RBC) [Entitic vol] 87.5 fL 81-99 [facility] Hematocrit Auto (Bld) [Volum e fraction]Ordered By: Dr. Etienne on 08-15-2022 Hematocrit (Bld) [Volume fraction] 38.4 % 37-47 [facility] Ketones Test strip Ql (U)Ord ered By: Dr. Etienne on 08-15-2022 Ketones Ql (U) Negative Negative [facility] Laboratory - Chemistry and C hemistry - challengeOrdered By: Dr. Etienne on 08-15-2022 ALP [Catalytic activity/Vol] 67 U/L 45-117 [facility] ALT [Catalytic activity/Vol] 128 U/L 13-56 [facility] CO2 [Moles/Vol] 25.0 mmol/L 21.0-32.0 [facility] Globulin (S) [Mass/Vol] 3.9 g/dL 2.2-4.2 [facility] Lipase [Catalytic activity/Vol] 45 U/L 13-75 [facility] Comment on above: Please note:LIPASE r evised reference range effective 22. New Lipase methodology. Expected to produce lower values than the previous assay method. NEW Reference Range: 13 - 75 U/L Urea nitrogen/Creatinine [Mass ratio] 16.2 mg/mg 10-20 [facility] Laboratory - Hematology and Cell countsOrdered By: Dr. Etienne on 08-15-2022 Erythrocyte distribution width (RBC) [Entitic vol] 43.6 fL 35.1-43.9 [facility] Erythrocyte distribution width (RBC) [Ratio] 13.5 % 11.6-14.6 [facility] Immature granulocytes/100 WBC (Bld) 0.600 % 0.0-0.9 [facility] Comment on above: IG% - Immature Granu locytes (promyelocytes, myelocytes and metamyelocytes) > 1% indicates that a LEFT SHIFT is Present. MCH (RBC) [Entitic mass] 28.7 pg 27.0-32.0 [facility] Nucleated RBC/100 WBC (Bld) [Ratio] 0 % 0-5 [facility] MCHC Auto (RBC) [Mass/Vol]Or dered By: Dr. Etienne on 08-15-2022 MCHC (RBC) [Mass/Vol] 32.8 g/dL 32-36 [facility] Mucus LM Ql (Urine sed)Order ed By: Dr. Etienne on 08-15-2022 Mucus Ql (Urine sed) 0 SEEN /hpf [facility] Nitrite Test strip Ql (U)Ord ered By: Dr. Etienne on 08-15-2022 Nitrite Ql (U) Negative Negative [facility] No Panel InformationOrdered By: Dr. Etienne on 08-15-2022 Estimated Creatinine Clearance Calc 122.99 ml/min [facility] Estimated GFR (MDRD) Amer 135 mL/min >60 [facility] Comment on above: GFR Calc Estimated GFR (MDRD) Non-Af Amer 112 mL/min >60 [facility] Comment on above: Non- GFR Calc [place] Level 0.60 mmol/L 0.60-1.20 [facility] Platelets bldOrdered By: Dr. Etienne on 08-15-2022 Platelets (Bld) [#/Vol] 311 10*3/uL 150-450 [facility] Protein Test strip Ql (U)Ord ered By: Dr. Eteinne on 08-15-2022 Protein Ql (U) 15 mg/dl Negative [facility] Serum or plasma albumin cherelle urement (mass/volume)Ordered By: Dr. Etienne on 08-15-2022 Albumin [Mass/Vol] 3.2 g/dL 3.2-5.[address] [facility] Serum or plasma albumin/glob ulin mass ratioOrdered By: Dr. Etienne on 08-15-2022 Albumin/Globulin [Mass ratio] 0.8 {ratio} 0.9-2.4 [facility] Serum or plasma calcium cherelle urement (mass/volume)Ordered By: Dr. Etienne on 08-15-2022 Calcium [Mass/Vol] 9.0 mg/dL 8.5-10.[address] [facility] Serum or plasma creatinine m easurement (mass/volume)Ordered By: Dr. Etienne on 08-15-2022 Creatinine [Mass/Vol] 0.68 mg/dL 0.55-1.02 [facility] Comment on above: The validity of the calculated GFR & GFRAA in patients over 70 years has not been determined. Clinical correlation is essential. Serum or plasma urea nitroge n measurement (mass/volume)Ordered By: Dr. Etienne on 08-15-2022 Urea nitrogen [Mass/Vol] 11 mg/dL 7-18 [facility] Squamous epithelial cells de tection in urine sediment by light microscopyOrdered By: Dr. Etienne on 08-15-2022 Epithelial cells.squamous LM Ql (Urine sed) 0-5 SEEN /hpf 5-10 [facility] Thin prep Papanicolaou smear with manual screeningOrdered By: Dr. Etienne on 08-15-2022 Thin prep Papanicolaou smear with manual screening 49 U/L 15-37 [facility] Comment on above: Slight Hemolysis, Re sult may be falsely increased. Thin prep Papanicolaou smear with manual screening 6 5-15 [facility] Urine blood detectionOrdered By: Dr. Etienne on 08-15-2022 RBC Ql (U) Negative Negative [facility] RBC Ql (U) 0 SEEN /hpf 0-5 [facility] Urine clarityOrdered By: Dr. Etienne on 08-15-2022 Clarity (U) Sl. Cloudy Clear [facility] Urine color determinationOrd ered By: Dr. Etienne on 08-15-2022 Color (U) Yellow Yellow [facility] Urine glucose detectionOrder ed By: Dr. Eitenne on 08-15-2022 Glucose Ql (U) Normal mg/dl Normal [facility] Urine leukocyte esterase det ection by dipstickOrdered By: Dr. Etienne on 08-15-2022 Leukocyte esterase Test strip Ql (U) 25 /ul Negative [facility] Urine pHOrdered By: Dr. Michael jacinto on 08-15-2022 pH (U) 6.0 [pH] 5.0 - 8.0 [facility] Urine sediment bacteria coun t by microscopy (number/high power field)Ordered By: Dr. Etienne on 08-15-2022 Bacteria LM.HPF (Urine sed) [#/Area] 1 /[HPF] None Seen [facility] Urine specific gravity measu rementOrdered By: Dr. Etienne on 08-15-2022 Specific gravity (U) [Rel density] 1.020 1.002-1.030 [facility] Urobilinogen Auto test strip Ql (U)Ordered By: Dr. Etienne on 08-15-2022 Urobilinogen Ql (U) Normal mg/dl Normal [facility] Beta hCG serum qualOrdered B y: Dr. Dutta on 08-08-2022 Beta HCG ( test) Ql Negative [facility] Thin prep Papanicolaou smear with manual screeningOrdered By: Zeus Miller on 03-03-2022 Genital Culture Streptococcus agalac tiae (B) [facility] Gram stain for investigation of transfusion reactionOrdered By: Zeus Miller on 03-01-2022 Microscopic observation Gram stain Nom (Unsp spec) [facility] Laboratory - Chemistry and C hemistry - challengeOrdered By: Zeus Miller on 02-28-2022 Free T4 [Mass/Vol] 1.05 ng/dL 0.76-1.[address] [facility] No Panel InformationOrdered By: Zeus Miller on 02-28-2022 Dehydroepiandrosterone Sulfate 130.0 ug/dL 84.8-378.0 [facility] No Panel InformationOrdered By: Karina Guerra on 02-28-2022 [place] Level 0.80 mmol/L 0.60-1.20 [facility] Thyroid Stimulating Hormone (TSH) 3.69 uIU/mL 0.358-3.74 [facility] Serum or plasma 17-hydroxypr ogesterone measurement (mass/volume)Ordered By: Zeus Miller on 02-28-2022 17-Hydroxyprogesterone [Mass/Vol] 61 ng/dL . [facility] Comment on above: Adult Female Follicu lar 15 - 70 Luteal 35 - 290Performed at: [facility] [id number] Director: Harsh Harris MD, Phone: [phone] Serum or plasma testosterone free measurement (mass/volume)Ordered By: Zeus Miller on 02-28-2022 Testosterone Free [Mass/Vol] 2.8 pg/mL 0.0-4.2 [facility] Serum or plasma thyroperoxid ase antibody assay (units/volume)Ordered By: Zeus Miller on 02-28-2022 TPO Ab Qn [IU]/mL 0-34 [facility] Comment on above: Performed at: [address] [id number] Director: Neeraj Marte PhD, Phone: [phone] at: [facility] [id number] Director: Harsh Harris MD, Phone: [phone] No Panel InformationOrdered By: Andreas Oliva on 02-17-2022 Stool Calprotectin 137 ug/g 0-[address] [facility] Comment on above: Concentration Interp retation Follow-Up<16 - 50 ug/g Normal None>50 -120 ug/g Borderline Re-evaluate in 4-6 weeks >120 ug/g Abnormal Repeat as clinically indicatedPerformed at: [facility] [id number] Director: Harsh Harris MD, Phone: [phone] Stool Pancreatic Elastase 329 >200 [facility] Comment on above: Result Units: ug Graciela st./g Severe Pancreatic Insufficiency: <100 Moderate Pancreatic Insufficiency: 100 - 200 Normal: >200Performed at: [address] [id number] Director: Harsh Harris MD, Phone: [phone] Stool lactoferrin detection by immunoassayOrdered By: Andreas Oliva on 12-30-2022 Lactoferrin IA Ql (Stl) [facility] Absolute lymphocyte countOrd ered By: Andreas Oliva on 02-15-2022 Lymphocytes Auto (Unsp spec) [#/Vol] 2.13 10*3/uL 0.83-4.51 [facility] Albumin Elph [Mass/Vol]Order ed By: Andreas Oliva on 02-15-2022 Albumin [Mass/Vol] 3.6 g/dL 2.9-4.[address] [facility] Atypical perinuclear antineu trophil cytoplasmic antibodies measurementOrdered By: Andreasneal Oliva on 02-15-2022 Neutrophil cytoplasmic Ab.perinuclear.atypical IF (S) [Titer] <1:20 titer Neg:<1:20 [facility] Comment on above: The atypical pANCA p attern has been observed in asignificant percentage of patients with ulcerative colitis,primary sclerosing cholangitis and autoimmune hepatitis. Basophil percentageOrdered B y: Andreasadalgisa Oliva on 02-15-2022 Ammonia (P) [Moles/Vol] 20.0 umol/L 11-32 [facility] Basophil percentage < 0.2 AI 0.0-0.9 [facility] Basophils/100 WBC (Bld) 0.5 % 0-1 [facility] Bilirubin [Mass/Vol] 0.40 mg/dL 0.20-1.00 [facility] Comment on above: For patients on eltr ombopag therapy, use of Dimension [place] TBIL is not recommended. Chloride [Moles/Vol] 109 mmol/L 98-107 [facility] Eosinophils/100 WBC (Bld) 2.3 % 0-5 [facility] Glucose [Mass/Vol] 112 mg/dL 74-[address] [facility] Comment on above: Fasting Glucose resu lt from 100 to 125 mg/dL suggests IMPAIRED HOMEOSTASIS per A.D.A. criteria. LDH [Catalytic activity/Vol] 187 U/L 84-246 [facility] Neutrophils (Bld) [#/Vol] 4.4 10*3/uL 2.0-7.7 [facility] Neutrophils/100 WBC (Bld) 60.9 % 47-70 [facility] Potassium [Moles/Vol] 4.4 mmol/L 3.5-5.1 [facility] Protein [Mass/Vol] 7.4 g/dL 6.4-8.[address] [facility] Sodium [Moles/Vol] 137 mmol/L 136-[address] [facility] WBC (Bld) [#/Vol] 7.3 10*3/uL 4.4-11.[address] [facility] Blood erythrocytes count (nu mber/volume)Ordered By: Andreas Oliva on 02-15-2022 RBC (Bld) [#/Vol] 4.35 10*6/uL 4.2-5.4 [facility] Blood hemoglobin measurement (mass/volume)Ordered By: Andreas Oliva on 02-15-2022 Hemoglobin (Bld) [Mass/Vol] 12.9 g/dL 12.0-15.0 [facility] Blood lymphocytes/100 leukoc ytesOrdered By: Andreas Oliva on 02-15-2022 Lymphocytes/100 WBC (Bld) 29.1 % 19-41 [facility] Blood monocytes/100 leukocyt esOrdered By: Andreas Oliva on 02-15-2022 Monocytes/100 WBC (Bld) 6.8 % 0-10 [facility] Blood platelet mean volumeOr dered By: Andreas Oliva on 02-15-2022 Platelet mean volume (Bld) [Entitic vol] 8.9 fL 6.2-12.0 [facility] Determination of erythrocyte mean corpuscular volume (MCV)Ordered By: Andreas Oliva on 02-15-2022 MCV (RBC) [Entitic vol] 91.3 fL 81-99 [facility] Erythrocyte sedimentation ra teOrdered By: Andreas Oliva on 02-15-2022 ESR (Bld) [Velocity] 28 mm/h 0-30 [facility] HIV 1 and HIV-2 antibody ass ay with HIV-1 p24 antigen detectionOrdered By: Andreas Oliva on 02-15-2022 HIV 1+2 Ab+HIV1 p24 Ag IA Ql Non-Reactive Nonreactive [facility] Hematocrit Auto (Bld) [Volum e fraction]Ordered By: Andreas Oliva on 02-15-2022 Hematocrit (Bld) [Volume fraction] 39.7 % 37-47 [facility] INR in Blood by Coagulation assayOrdered By: Andreas Oliva on 02-15-2022 INR Coag (Bld) [Relative time] 1.1 {INR} [facility] Interpretation of serum or p lasma protein pattern by immunofixation (narrative resultOrdered By: Andreas Oliva on 02-15-2022 Protein Fractions Immunofixation Willard [Interp] See comment [facility] Comment on above: Result: Not Observed Laboratory - Chemistry and C hemistry - challengeOrdered By: Andreas Oliva on 02-15-2022 ALP [Catalytic activity/Vol] 52 U/L 45-117 [facility] ALT [Catalytic activity/Vol] 92 U/L 13-56 [facility] CO2 [Moles/Vol] 24.0 mmol/L 21.0-32.0 [facility] Urea nitrogen/Creatinine [Mass ratio] 19.9 mg/mg 10-20 [facility] Laboratory - CoagulationOrde red By: Andreas Oliva on 02-15-2022 PT Coag (PPP) [Time] 13.7 s 11.7-14.9 [facility] Laboratory - Hematology and Cell countsOrdered By: Andreas Oliva on 02-15-2022 Erythrocyte distribution width (RBC) [Entitic vol] 43.8 fL 35.1-43.9 [facility] Erythrocyte distribution width (RBC) [Ratio] 12.9 % 11.6-14.6 [facility] Immature granulocytes/100 WBC (Bld) 0.400 % 0.0-0.9 [facility] Comment on above: IG% - Immature Granu locytes (promyelocytes, myelocytes and metamyelocytes) > 1% indicates that a LEFT SHIFT is Present. MCH (RBC) [Entitic mass] 29.7 pg 27.0-32.0 [facility] Nucleated RBC/100 WBC (Bld) [Ratio] 0 % 0-5 [facility] MCHC Auto (RBC) [Mass/Vol]Or dered By: Andreas Oliva on 02-15-2022 MCHC (RBC) [Mass/Vol] 32.5 g/dL 32-36 [facility] No Panel InformationOrdered By: Andreas Oliva on 02-15-2022 Addendum Document Comment . [facility] Comment on above: Protein electrophore sis scan will follow via computer,mail, or company miner blasting delivery. Centromere B Antibody <0.2 AI 0.0-0.9 [facility] Ceruloplasmin 26.2 mg/dL 19.0-39.0 [facility] Endomysial IgA Antibody Negative Negative [facility] Estimated GFR (MDRD) Amer 130 mL/min >60 [facility] Comment on above: GFR Calc Estimated GFR (MDRD) Non-Af Amer 107 mL/min >60 [facility] Comment on above: Non- GFR Calc Haptoglobin 219 mg/dL 33-278 [facility] Comment on above: Performed at: [facility] [address] [id number] Director: Neeraj Marte PhD, Phone: [phone] at: [address] [id number] Director: Harsh Harris MD, Phone: [phone] Hepatitis A IgM Antibody Negative Negative [facility] Hepatitis B Core IgM Antibody Negative Negative [facility] Hepatitis C Antibody (EIA) 0.1 s/co ratio 0.0-0.9 [facility] Hepatitis C Antibody Comment Comment . [facility] Comment on above: NegativeNot infected with HCV, unless recent infection issuspected or other evidence exists to indicate HCVinfection. Immunoglobulin E 18 IU/mL 6-495 [facility] Miscellaneous Test See comment [facility] Comment on above: TEST RESULT LIMITSIB [...] developed and its performance characteristics determined by [facility]. It has not been cleared or approved by the Food and Drug Administration. The FDA has determined that such clearance or approval is not necessary.Atypical pANCA Negative Negative Comments Abnormal Suggestive of Crohn's Disease. Pattern is not conclusive for disease behavior risk stratification. TESTING PERFORMED AT [facility]. ORIGINAL REPORT ON FILE IN LAB CONTAINS ADDITIONAL TEST SITE INFORMATION. NURSING PROGRAM CHAIR Antibody <0.2 AI 0.0-0.9 [facility] No Panel InformationOrdered By: Zeus Miller on 02-15-2022 Follicle Stimulating Hormone 3.8 mIU/mL [facility] Comment on above: NORMAL REFERENCE RAN GES FEMALE FOLLICULAR 2.3 - 12.6 mIU/mL MID-CYCLE [place]AK 5.2 - 17.5 mIU/mL LUTEAL 1.7 - 12.9 mIU/mL POST-MENOPAUSAL ON MHT 5.9 - 72.8 mIU/mL NOT ON MHT 12.7 - 132.2 mlU/mL MALE 0.7 - 10.8 mIU/mL Platelets bldOrdered By: Mello Oliva on 02-15-2022 Platelets (Bld) [#/Vol] 367 10*3/uL 150-450 [facility] Serum DNA double strand anti body assay (units/volume)Ordered By: Andreas Oliva on 02-15-2022 DNA double strand Ab Qn (S) 1 [IU]/mL 0-9 [facility] Comment on above: Negative <5 Equivoca l 5 - 9 Positive >9 Serum Gabriella-1 antibody assay (u nits/volume)Ordered By: Andreas Oliva on 02-15-2022 Gabriella-1 extractable nuclear Ab Qn (S) <0.2 AI 0.0-0.9 [facility] Serum Scl-70 extractable nuc lear antibody assay (units/volume)Ordered By: Andreas Oliva on 02-15-2022 SCL-70 extractable nuclear Ab Qn (S) <0.2 AI 0.0-0.9 [facility] Serum Dykes extractable nucl ear antibody detectionOrdered By: Andreas Oliva on 02-15-2022 Dykes extractable nuclear Ab Ql (S) <0.2 AI 0.0-0.9 [facility] Serum [id number] measu rement by electrophoresisOrdered By: Andreas Oliva on 02-15-2022 Alpha 1 globulin Elph [Mass/Vol] 0.2 g/dL 0.0-0.4 [facility] Alpha 1 globulin Elph [Mass/Vol] 0.9 g/dL 0.4-1.0 [facility] Serum classic neutrophil cyt oplasmic antibody assay (units/volume)Ordered By: Andreasneal Oliva on 02-15-2022 Neutrophil cytoplasmic Ab.classic Qn (S) <1:20 titer Neg:<1:20 [facility] Serum globulin measurement ( mass/volume)Ordered By: Andreas Oliva on 02-15-2022 Globulin (S) [Mass/Vol] 3.4 g/dL 2.2-3.9 [facility] Serum mitochondria antibody detectionOrdered By: Andreas Oliva on 02-15-2022 Mitochondria Ab Ql (S) <20.0 Units 0.0-20.0 [facility] Comment on above: Negative 0.0 - 20.0 Equivocal 20.1 - 24.9 Positive >24.9Mitochondrial (M2) Antibodies are found in 90-96% ofpatients with primary biliary cirrhosis.Performed at: [facility] [id number] Director: Neeraj Marte PhD, Phone: [phone] Serum or plasma C reactive p rotein measurement (mass/volume)Ordered By: Andreas Oliva on 02-15-2022 CRP [Mass/Vol] 4.50 mg/L 0.0-3.0 [facility] Comment on above: C-Reactive Protein ( CRP) provides useful information for thediagnosis, therapy and monitoring of inflammatory processesand associated diseases. For the evaluation of Relative Riskfor Cardiovascular Disease, a High Sensitivity CRP (HSCRP)should be ordered. Serum or plasma IgA measurem ent (mass/volume)Ordered By: Andreas Oliva on 02-15-2022 IgA [Mass/Vol] 163 mg/dL 87-352 [facility] Serum or plasma IgG measurem ent (mass/volume)Ordered By: Andreas Oliva on 02-15-2022 IgG [Mass/Vol] 972 mg/dL 586-1602 [facility] Serum or plasma IgM measurem ent (mass/volume)Ordered By: Andreas Oliva on 02-15-2022 IgM [Mass/Vol] 115 mg/dL 26-217 [facility] Serum or plasma actin IgG an tibody assay (units/volume)Ordered By: Andreas Oliva on 02-15-2022 Actin IgG Qn 9 Units 0-19 [facility] Comment on above: Negative 0 - 19 Weak positive 20 - 30 Moderate to strong positive >30 Actin Antibodies are found in 52-85% of patients with autoimmune hepatitis or chronic active hepatitis and in 22% of patients with primary biliary cirrhosis. Serum or plasma albumin cherelle urement (mass/volume)Ordered By: Andreas Oliva on 02-15-2022 Albumin [Mass/Vol] 3.5 g/dL 3.2-5.[address] [facility] Serum or plasma albumin/glob ulin mass ratioOrdered By: Andreas Oliva on 02-15-2022 Albumin/Globulin [Mass ratio] 0.9 {ratio} 0.9-2.4 [facility] Serum or plasma [id number] protein tumor marker measurement (units/volume)Ordered By: Andreas Oliva on 02-15-2022 AFP.tumor marker Qn < 1.8 ng/mL 0.0-4.7 [facility] Comment on above: [employer] El ectrochemiluminescence Immunoassay(ECLIA)Values obtained with different assay methods or kits cannotbe used interchangeably. Results cannot be interpreted asabsolute evidence of the presence or absence of malignantdisease.This test is not interpretable in females. Serum or plasma angiotensin converting enzyme measurement (enzymatic activity/volume)Ordered By: Andreas Oliva on 02-15-2022 Angiotensin converting enzyme [Catalytic activity/Vol] 31 U/L 14-82 [facility] Serum or plasma beta globuli n measurement by electrophoresis (mass/volume)Ordered By: Andreas Oliva on 02-15-2022 Beta globulin Elph [Mass/Vol] 1.2 g/dL 0.7-1.3 [facility] Serum or plasma calcium cherelle urement (mass/volume)Ordered By: Andreas Oliva on 02-15-2022 Calcium [Mass/Vol] 9.1 mg/dL 8.5-10.[address] [facility] Serum or plasma creatinine m easurement (mass/volume)Ordered By: Andreas Oliva on 02-15-2022 Creatinine [Mass/Vol] 0.70 mg/dL 0.55-1.02 [facility] Comment on above: The validity of the calculated GFR & GFRAA in patients over 70 years has not been determined. Clinical correlation is essential. Serum or plasma estradiol (E 2) measurement (mass/volume)Ordered By: Zeus Miller on 02-15-2022 E2 [Mass/Vol] 42.6 pg/mL [facility] Comment on above: NORMAL REFERENCE RAN [...] Oliva on 02-15-2022 Ferritin [Mass/Vol] 138 ng/mL 8-252 [facility] Serum or plasma gamma globul in measurement by electrophoresis (mass/volume)Ordered By: Andreas Oliva on 02-15-2022 Gamma globulin Elph [Mass/Vol] 1.1 g/dL 0.4-1.8 [facility] Serum or plasma hepatitis B virus surface antigen detection by immunoassayOrdered By: Andreas Oliva on 02-15-2022 HBV surface Ag IA Ql Negative Negative [facility] Serum or plasma immunoelectr ophoresis interpretation (nominal result)Ordered By: Andreas Oliva on 02-15-2022 Interpretation IEP [Interp] Comment . [facility] Comment on above: No monoclonality det ected. Serum or plasma prolactin me asurement (mass/volume)Ordered By: Zesu Miller on 02-15-2022 Prolactin [Mass/Vol] 9.0 ng/mL [facility] Comment on above: NORMAL REFERENCE RAN GES FEMALE NON- 2.2 - 30.3 ng/mL 8.1 - 347.6 ng/mL POST-MENOPAUSAL 0.7 - 31.5 ng/mL MALE 2.5 - 17.4 ng/mL Serum or plasma urea nitroge n measurement (mass/volume)Ordered By: Andreas Oliva on 02-15-2022 Urea nitrogen [Mass/Vol] 14 mg/dL 7-18 [facility] Serum perinuclear neutrophil cytoplasmic antibody titer by immunofluorescenceOrdered By: Andreas Oliva on 02-15-2022 Neutrophil cytoplasmic Ab.perinuclear IF (S) [Titer] <1:20 titer Neg:<1:20 [facility] Comment on above: The presence of posi tive fluorescence exhibiting P-ANCA orC-ANCA patterns alone is not specific for the diagnosis ofWegener's Granulomatosis (WG) or microscopic polyangiitis.Decisions about treatment should not be based solely onANCA IFA results. The [employer] ANCA Group Consensusrecommends follow up testing of positive sera with both MT-3 and MPO-ANCA enzyme immunoassays. As many as 5% serumsamples are positive only by EIA. Ref. AM J Clin Rhbpzu1945;111:507-513. Serum tissue transglutaminas e IgA antibody assay (units/volume)Ordered By: Andreas Oliva on 02-15-2022 tTG IgA Qn (S) <2 U/mL 0-3 [facility] Comment on above: Negative 0 - 3 Weak Positive 4 - 10 Positive >10 Tissue Transglutaminase (tTG) has been identified as the endomysial antigen. Studies have demonstr- ated that endomysial IgA antibodies have over 99% specificity for gluten sensitive enteropathy. Thin prep Papanicolaou smear with manual screeningOrdered By: Andreas Oliva on 02-15-2022 Thin prep Papanicolaou smear with manual screening 33 U/L 15-37 [facility] Thin prep Papanicolaou smear with manual screening 4 5-15 [facility] Thin prep Papanicolaou smear with manual screening 1.1 0.7-1.7 [facility] Thin prep Papanicolaou smear with manual screening 128 ug/dL 80-158 [facility] Comment on above: Detection Limit = 5 Total protein bloodOrdered B y: Andreas Oliva on 02-15-2022 Protein [Mass/Vol] 7.0 g/dL 6.0-8.[address] [facility] Whole blood hemoglobin A1c/t otal hemoglobin ratio (mass fraction)Ordered By: Andreas Oliva on 02-15-2022 HbA1c (Bld) [Mass fraction] 5.9 % 3.8-5.6 [facility] Comment on above: Normal < 5.7 % Predi abetic 5.7 - 6.4 % Diabetic >or= 6.5 % Please note range changes. Laboratory - Chemistry and C hemistry - challengeOrdered By: DANIEL BETANCUR on 01-31-2022 Free T4 [Mass/Vol] 1.04 ng/dL 0.76-1.[address] [facility] No Panel InformationOrdered By: DANIEL BETANCUR on 01-31-2022 Thyroid Stimulating Hormone (TSH) 4.77 uIU/mL 0.358-3.74 [facility] Ova and parasitesOrdered By: Dr. Angelo on 01-27-2022 Ova and parasites identified LM Nom (Unsp spec) [facility] Absolute lymphocyte countOrd ered By: Dr. Aneglo on 01-24-2022 Lymphocytes Auto (Unsp spec) [#/Vol] 2.71 10*3/uL 0.83-4.51 [facility] Basophil percentageOrdered B y: Dr. Angelo on 01-24-2022 Basophils/100 WBC (Bld) 0.6 % 0-1 [facility] Bilirubin [Mass/Vol] 0.50 mg/dL 0.20-1.00 [facility] Comment on above: For patients on eltr ombopag therapy, use of Dimension [place] TBIL is not recommended. Chloride [Moles/Vol] 109 mmol/L 98-107 [facility] Eosinophils/100 WBC (Bld) 2.9 % 0-5 [facility] Glucose [Mass/Vol] 114 mg/dL 74-[address] [facility] Comment on above: Fasting Glucose resu lt from 100 to 125 mg/dL suggests IMPAIRED HOMEOSTASIS per A.D.A. criteria. Lactate [Moles/Vol] 0.8 mmol/L 0.4-2.0 [facility] Neutrophils (Bld) [#/Vol] 4.8 10*3/uL 2.0-7.7 [facility] Neutrophils/100 WBC (Bld) 56.1 % 47-70 [facility] Potassium [Moles/Vol] 3.8 mmol/L 3.5-5.1 [facility] Protein [Mass/Vol] 7.3 g/dL 6.4-8.[address] [facility] Sodium [Moles/Vol] 137 mmol/L 136-[address] [facility] WBC (Bld) [#/Vol] 8.6 10*3/uL 4.4-11.[address] [facility] Basophil percentage 0-5 SEEN /hpf 0-5 [facility] Bilirubin Test strip Ql (U)O rdered By: Dr. Angelo on 01-24-2022 Bilirubin Ql (U) Negative Negative [facility] Blood erythrocytes count (nu mber/volume)Ordered By: Dr. Angelo on 01-24-2022 RBC (Bld) [#/Vol] 4.14 10*6/uL 4.2-5.4 [facility] Blood hemoglobin measurement (mass/volume)Ordered By: Dr. Angelo on 01-24-2022 Hemoglobin (Bld) [Mass/Vol] 12.4 g/dL 12.0-15.0 [facility] Blood lymphocytes/100 leukoc ytesOrdered By: Dr. Angelo on 01-24-2022 Lymphocytes/100 WBC (Bld) 31.5 % 19-41 [facility] Blood monocytes/100 leukocyt esOrdered By: Dr. Angelo on 01-24-2022 Monocytes/100 WBC (Bld) 8.6 % 0-10 [facility] Blood platelet mean volumeOr dered By: Dr. Angelo on 01-24-2022 Platelet mean volume (Bld) [Entitic vol] 9.0 fL 6.2-12.0 [facility] Determination of erythrocyte mean corpuscular volume (MCV)Ordered By: Dr. Angelo on 01-24-2022 MCV (RBC) [Entitic vol] 91.5 fL 81-99 [facility] Hematocrit Auto (Bld) [Volum e fraction]Ordered By: Dr. Angelo on 01-24-2022 Hematocrit (Bld) [Volume fraction] 37.9 % 37-47 [facility] Ketones Test strip Ql (U)Ord ered By: Dr. Angelo on 01-24-2022 Ketones Ql (U) 5 mg/dl Negative [facility] Laboratory - Chemistry and C hemistry - challengeOrdered By: Dr. Angelo on 01-24-2022 ALP [Catalytic activity/Vol] 57 U/L 45-117 [facility] ALT [Catalytic activity/Vol] 160 U/L 13-56 [facility] CO2 [Moles/Vol] 24.0 mmol/L 21.0-32.0 [facility] Globulin (S) [Mass/Vol] 3.7 g/dL 2.2-4.2 [facility] Lipase [Catalytic activity/Vol] 144 U/L 73-393 [facility] Urea nitrogen/Creatinine [Mass ratio] 18.6 mg/mg 10-20 [facility] HCG ( test) Ql (U) Negative [facility] Comment on above: Very dilute urine sp ecimens, as indicated by a low specificgravity, may not contain motor vehicle representative levels of hCG. If is still suspected, a first morning urinespecimen should be collected 48 hours later and tested. Laboratory - Hematology and Cell countsOrdered By: Dr. Angelo on 01-24-2022 Erythrocyte distribution width (RBC) [Entitic vol] 44.2 fL 35.1-43.9 [facility] Erythrocyte distribution width (RBC) [Ratio] 13.2 % 11.6-14.6 [facility] Immature granulocytes/100 WBC (Bld) 0.300 % 0.0-0.9 [facility] Comment on above: IG% - Immature Granu locytes (promyelocytes, myelocytes and metamyelocytes) > 1% indicates that a LEFT SHIFT is Present. MCH (RBC) [Entitic mass] 30.0 pg 27.0-32.0 [facility] Nucleated RBC/100 W[facility] (Bld) [[facility]] 0 [facility] [Mass/Vol]Or dered By: Dr. Angelo on 01-24-2022 MCHC (RBC) [Mass/Vol] 32.7 g/dL 32-36 [facility] Mucus LM Ql (Urine sed)Order ed By: Dr. Angelo on 01-24-2022 Mucus Ql (Urine sed) 0 SEEN /hpf [facility] Nitrite Test strip Ql (U)Ord ered By: Dr. Angelo on 01-24-2022 Nitrite Ql (U) Negative Negative [facility] No Panel InformationOrdered By: Dr. Angelo on 01-24-2022 Estimated Creatinine Clearance Calc 97.24 ml/min [facility] Estimated GFR (MDRD) Amer 104 mL/min >60 [facility] Comment on above: GFR Calc Estimated GFR (MDRD) Non-Af Amer 86 mL/min >60 [facility] Comment on above: Non- GFR Calc Platelets bldOrdered By: Dr. Angelo on 01-24-2022 Platelets (Bld) [#/Vol] 328 10*3/uL 150-450 [facility] Protein Test strip Ql (U)Ord ered By: Dr. Angelo on 01-24-2022 Protein Ql (U) 30 mg/dl Negative [facility] Serum or plasma albumin cherelle urement (mass/volume)Ordered By: Dr. Angelo on 01-24-2022 Albumin [Mass/Vol] 3.6 g/dL 3.2-5.[address] [facility] Serum or plasma albumin/glob ulin mass ratioOrdered By: Dr. Angelo on 01-24-2022 Albumin/Globulin [Mass ratio] 1.0 {ratio} 0.9-2.4 [facility] Serum or plasma calcium cherelle urement (mass/volume)Ordered By: Dr. Angelo on 01-24-2022 Calcium [Mass/Vol] 9.0 mg/dL 8.5-10.[address] [facility] Serum or plasma creatinine m easurement (mass/volume)Ordered By: Dr. Angelo on 01-24-2022 Creatinine [Mass/Vol] 0.86 mg/dL 0.55-1.02 [facility] Comment on above: The validity of the calculated GFR & GFRAA in patients over 70 years has not been determined. Clinical correlation is essential. Serum or plasma urea nitroge n measurement (mass/volume)Ordered By: Dr. Angelo on 01-24-2022 Urea nitrogen [Mass/Vol] 16 mg/dL 7-18 [facility] Squamous epithelial cells de tection in urine sediment by light microscopyOrdered By: Dr. Angelo on 01-24-2022 Epithelial cells.squamous LM Ql (Urine sed) 0-5 SEEN /hpf 5-10 [facility] Thin prep Papanicolaou smear with manual screeningOrdered By: Dr. Angelo on 01-24-2022 Thin prep Papanicolaou smear with manual screening 63 U/L 15-37 [facility] Thin prep Papanicolaou smear with manual screening 4 5-15 [facility] Urine blood detectionOrdered By: Dr. Angelo on 01-24-2022 RBC Ql (U) 10 /ul Negative [facility] RBC Ql (U) 0-5 SEEN /hpf 0-5 [facility] Urine clarityOrdered By: Dr. Angelo on 01-24-2022 Clarity (U) Sl. Cloudy Clear [facility] Urine color determinationOrd ered By: Dr. Angelo on 01-24-2022 Color (U) Yellow Yellow [facility] Urine glucose detectionOrder ed By: Dr. Angelo on 01-24-2022 Glucose Ql (U) Normal mg/dl Normal [facility] Urine leukocyte esterase det ection by dipstickOrdered By: Dr. Angelo on 01-24-2022 Leukocyte esterase Test strip Ql (U) 25 /ul Negative [facility] Urine pHOrdered By: Dr. Rosa foster on 01-24-2022 pH (U) 5.0 [pH] 5.0 - 8.0 [facility] Urine sediment bacteria coun t by microscopy (number/high power field)Ordered By: Dr. Angelo on 01-24-2022 Bacteria LM.HPF (Urine sed) [#/Area] 1 /[HPF] None Seen [facility] Urine specific gravity measu rementOrdered By: Dr. Angelo on 01-24-2022 Specific gravity (U) [Rel density] 1.025 1.002-1.030 [facility] Urobilinogen Auto test strip Ql (U)Ordered By: Dr. Angelo on 01-24-2022 Urobilinogen Ql (U) Normal mg/dl Normal [facility] Absolute lymphocyte countOrd ered By: Dr. Pace on 01-15-2022 Lymphocytes Auto (Unsp spec) [#/Vol] 2.40 10*3/uL 0.83-4.51 [facility] Basophil percentageOrdered B y: Dr. Pace on 01-15-2022 Basophils/100 WBC (Bld) 0.6 % 0-1 [facility] Chloride [Moles/Vol] 108 mmol/L 98-107 [facility] Eosinophils/100 WBC (Bld) 2.7 % 0-5 [facility] Glucose [Mass/Vol] 118 mg/dL 74-[address] [facility] Comment on above: Fasting Glucose resu lt from 100 to 125 mg/dL suggests IMPAIRED HOMEOSTASIS per A.D.A. criteria. Neutrophils (Bld) [#/Vol] 4.7 10*3/uL 2.0-7.7 [facility] Neutrophils/100 WBC (Bld) 58.8 % 47-70 [facility] Potassium [Moles/Vol] 4.4 mmol/L 3.5-5.1 [facility] Sodium [Moles/Vol] 138 mmol/L 136-[address] [facility] WBC (Bld) [#/Vol] 8.1 10*3/uL 4.4-11.[address] [facility] Blood erythrocytes count (nu mber/volume)Ordered By: Dr. Pace on 01-15-2022 RBC (Bld) [#/Vol] 4.29 10*6/uL 4.2-5.4 [facility] Blood hemoglobin measurement (mass/volume)Ordered By: Dr. Pace on 01-15-2022 Hemoglobin (Bld) [Mass/Vol] 13.0 g/dL 12.0-15.0 [facility] Blood lymphocytes/100 leukoc ytesOrdered By: Dr. Pace on 01-15-2022 Lymphocytes/100 WBC (Bld) 29.7 % 19-41 [facility] Blood monocytes/100 leukocyt esOrdered By: Dr. Pace on 01-15-2022 Monocytes/100 WBC (Bld) 7.8 % 0-10 [facility] Blood platelet mean volumeOr dered By: Dr. Pace on 01-15-2022 Platelet mean volume (Bld) [Entitic vol] 9.1 fL 6.2-12.0 [facility] Determination of erythrocyte mean corpuscular volume (MCV)Ordered By: Dr. Pace on 01-15-2022 MCV (RBC) [Entitic vol] 92.5 fL 81-99 [facility] Hematocrit Auto (Bld) [Volum e fraction]Ordered By: Dr. Pace on 01-15-2022 Hematocrit (Bld) [Volume fraction] 39.7 % 37-47 [facility] Laboratory - Chemistry and C hemistry - challengeOrdered By: Dr. Pace on 01-15-2022 CO2 [Moles/Vol] 27.0 mmol/L 21.0-32.0 [facility] Urea nitrogen/Creatinine [Mass ratio] 20.9 mg/mg 10-20 [facility] Laboratory - Hematology and Cell countsOrdered By: Dr. Pace on 01-15-2022 Erythrocyte distribution width (RBC) [Entitic vol] 44.6 fL 35.1-43.9 [facility] Erythrocyte distribution width (RBC) [Ratio] 13.2 % 11.6-14.6 [facility] Immature granulocytes/100 WBC (Bld) 0.400 % 0.0-0.9 [facility] Comment on above: IG% - Immature Granu locytes (promyelocytes, myelocytes and metamyelocytes) > 1% indicates that a LEFT SHIFT is Present. MCH (RBC) [Entitic mass] 30.3 pg 27.0-32.0 [facility] Nucleated RBC/100 WBC (Bld) [Ratio] 0 % 0-5 [facility] MCHC Auto (RBC) [Mass/Vol]Or dered By: Dr. Pace on 01-15-2022 MCHC (RBC) [Mass/Vol] 32.7 g/dL 32-36 [facility] No Panel InformationOrdered By: Dr. Pace on 01-15-2022 D-Dimer Quantitative (PE/DVT) 0.36 FEU/ug/m 0.27-0.49 [facility] Comment on above: NORMAL D-Dimer level (<0.50) indicates no DVT or PE. Estimated Creatinine Clearance Calc 134.89 ml/min [facility] Estimated GFR (MDRD) Amer 150 mL/min >60 [facility] Comment on above: GFR Calc Estimated GFR (MDRD) Non-Af Amer 124 mL/min >60 [facility] Comment on above: Non- GFR Calc Troponin I High Sensitivity 5 pg/mL 3.0-54.0 [facility] Comment on above: Please Note: New Renetta t Units and Gender Specific Reference Ranges. For more information see Policy Stat Procedure [place] High Sensitivity Troponin (TNIH) and attachments. Platelets bldOrdered By: Dr. Pace on 01-15-2022 Platelets (Bld) [#/Vol] 305 10*3/uL 150-450 [facility] Serum or plasma calcium cherelle urement (mass/volume)Ordered By: Dr. Pace on 01-15-2022 Calcium [Mass/Vol] 9.7 mg/dL 8.5-10.[address] [facility] Serum or plasma creatinine m easurement (mass/volume)Ordered By: Dr. Pace on 01-15-2022 Creatinine [Mass/Vol] 0.62 mg/dL 0.55-1.02 [facility] Comment on above: The validity of the calculated GFR & GFRAA in patients over 70 years has not been determined. Clinical correlation is essential. Serum or plasma urea nitroge n measurement (mass/volume)Ordered By: Dr. Pace on 01-15-2022 Urea nitrogen [Mass/Vol] 13 mg/dL 7-18 [facility] Thin prep Papanicolaou smear with manual screeningOrdered By: Dr. Pace on 01-15-2022 Thin prep Papanicolaou smear with manual screening 3 5-15 [facility] Basophil percentageOrdered B y: Karina Guerra on 12-14-2021 Bilirubin [Mass/Vol] 0.40 mg/dL 0.20-1.00 [facility] Comment on above: For patients on eltr ombopag therapy, use of Dimension [place] TBIL is not recommended. Chloride [Moles/Vol] 107 mmol/L 98-107 [facility] Glucose [Mass/Vol] 122 mg/dL 74-[address] [facility] Comment on above: Fasting Glucose resu lt from 100 to 125 mg/dL suggests IMPAIRED HOMEOSTASIS per A.D.A. criteria. Potassium [Moles/Vol] 4.4 mmol/L 3.5-5.1 [facility] Protein [Mass/Vol] 6.9 g/dL 6.4-8.[address] [facility] Sodium [Moles/Vol] 137 mmol/L 136-[address] [facility] Laboratory - Chemistry and C hemistry - challengeOrdered By: Karina Guerra on 12-14-2021 ALP [Catalytic activity/Vol] 53 U/L 45-117 [facility] ALT [Catalytic activity/Vol] 136 U/L 13-56 [facility] CO2 [Moles/Vol] 27.0 mmol/L 21.0-32.0 [facility] Free T4 [Mass/Vol] 0.96 ng/dL 0.76-1.[address] [facility] Globulin (S) [Mass/Vol] 3.6 g/dL 2.2-4.2 [facility] Urea nitrogen/Creatinine [Mass ratio] 20.8 mg/mg 10-20 [facility] No Panel InformationOrdered By: Karina Guerra on 12-14-2021 Estimated GFR (MDRD) Amer 109 mL/min >60 [facility] Comment on above: GFR Calc Estimated GFR (MDRD) Non-Af Amer 90 mL/min >60 [facility] Comment on above: Non- GFR Calc [place] Level 1.10 mmol/L 0.60-1.20 [facility] Thyroid Stimulating Hormone (TSH) 6.04 uIU/mL 0.358-3.74 [facility] Serum or plasma albumin cherelle urement (mass/volume)Ordered By: Karina Guerra on 12-14-2021 Albumin [Mass/Vol] 3.3 g/dL 3.2-5.[address] [facility] Serum or plasma albumin/glob ulin mass ratioOrdered By: Karina Guerra on 12-14-2021 Albumin/Globulin [Mass ratio] 0.9 {ratio} 0.9-2.4 [facility] Serum or plasma calcium cherelle urement (mass/volume)Ordered By: Karina Guerra on 12-14-2021 Calcium [Mass/Vol] 8.8 mg/dL 8.5-10.[address] [facility] Serum or plasma creatinine m easurement (mass/volume)Ordered By: Karina Guerra on 12-14-2021 Creatinine [Mass/Vol] 0.82 mg/dL 0.55-1.02 [facility] Comment on above: The validity of the calculated GFR & GFRAA in patients over 70 years has not been determined. Clinical correlation is essential. Serum or plasma urea nitroge n measurement (mass/volume)Ordered By: Karina Guerra on 12-14-2021 Urea nitrogen [Mass/Vol] 17 mg/dL 7-18 [facility] Thin prep Papanicolaou smear with manual screeningOrdered By: Karina Guerra on 12-14-2021 Thin prep Papanicolaou smear with manual screening 59 U/L 15- [facility] Thin prep Papanicolaou smear with manual screening 3 5-15 [facility] Absolute lymphocyte counton 11-30-2021 Lymphocytes Auto (Unsp spec) [#/Vol] 2.45 10*3/uL 0.83-4.51 [facility] Basophil percentageon 2021 Basophil percentage 3.3 mg/dL 2.5-4.9 [facility] Basophils/100 WBC (Bld) 0.9 % 0-1 [facility] Bilirubin [Mass/Vol] 0.60 mg/dL 0.20-1.00 [facility] Comment on above: For patients on eltr ombopag therapy, use of Dimension [place] TBIL is not recommended. Chloride [Moles/Vol] 108 mmol/L 98-107 [facility] Cholesterol [Mass/Vol] 190 mg/dL <200 [facility] Comment on above: <200 mg/dL Desirable 200-240 mg/dL Borderline >240 mg/dL High Risk Eosinophils/100 WBC (Bld) 2.9 % 0-5 [facility] Glucose [Mass/Vol] 143 mg/dL 74-[address] [facility] Comment on above: Fasting Glucose resu lt greater than or equal to 126 mg/dL suggests DIABETES MELLITUS per A.D.A. criteria. Neutrophils (Bld) [#/Vol] 3.4 10*3/uL 2.0-7.7 [facility] Neutrophils/100 WBC (Bld) 51.3 % 47-70 [facility] Potassium [Moles/Vol] 4.9 mmol/L 3.5-5.1 [facility] Protein [Mass/Vol] 7.4 g/dL 6.4-8.[address] [facility] Sodium [Moles/Vol] 140 mmol/L 136-[address] [facility] Triglyceride [Mass/Vol] 208 mg/dL <199 [facility] Comment on above: The drugs N-Acetylcy steine and Metamizole may falsely depress this assay.Serum Triglycerides Reference Interval Normal <150 mg/dL Borderline high 150 - 199 mg/dL High 200 - 499 mg/dL Very High > or = 500 mg/dL WBC (Bld) [#/Vol] 6.7 10*3/uL 4.4-11.[address] [facility] Blood erythrocytes count (nu mber/volume)on 11-30-2021 RBC (Bld) [#/Vol] 4.08 10*6/uL 4.2-5.4 [facility] Blood hemoglobin measurement (mass/volume)on 11-30-2021 Hemoglobin (Bld) [Mass/Vol] 12.2 g/dL 12.0-15.0 [facility] Blood lymphocytes/100 leukoc yteson 11-30-2021 Lymphocytes/100 WBC (Bld) 36.8 % 19-41 [facility] Blood monocytes/100 leukocyt eson 11-30-2021 Monocytes/100 WBC (Bld) 7.8 % 0-10 [facility] Blood platelet mean volumeon 11-30-2021 Platelet mean volume (Bld) [Entitic vol] 8.9 fL 6.2-12.0 [facility] Determination of erythrocyte mean corpuscular volume (MCV)on 11-30-2021 MCV (RBC) [Entitic vol] 91.9 fL 81-99 [facility] Hematocrit Auto (Bld) [Volum e fraction]on 11-30-2021 Hematocrit (Bld) [Volume fraction] 37.5 % 37-47 [facility] Iron measurement (mass/mass) on 11-30-2021 Iron (Unsp spec) [Mass/Mass] 72 ug/dL 50-170 [facility] Laboratory - Chemistry and C hemistry - challengeon 11-30-2021 ALP [Catalytic activity/Vol] 59 U/L 45-117 [facility] ALT [Catalytic activity/Vol] 134 U/L 13-56 [facility] CO2 [Moles/Vol] 26.0 mmol/L 21.0-32.0 [facility] Globulin (S) [Mass/Vol] 4.0 g/dL 2.2-4.2 [facility] Magnesium [Mass/Vol] 2.1 mg/dL 1.6-2.6 [facility] T4 [Mass/Vol] 9.3 ug/dL 4.8-13.9 [facility] Urea nitrogen/Creatinine [Mass ratio] 21.4 mg/mg 10-20 [facility] Laboratory - Hematology and Cell countson 11-30-2021 Erythrocyte distribution width (RBC) [Entitic vol] 46.2 fL 35.1-43.9 [facility] Erythrocyte distribution width (RBC) [Ratio] 13.6 % 11.6-14.6 [facility] Immature granulocytes/100 WBC (Bld) 0.300 % 0.0-0.9 [facility] Comment on above: IG% - Immature Granu locytes (promyelocytes, myelocytes and metamyelocytes) > 1% indicates that a LEFT SHIFT is Present. MCH (RBC) [Entitic mass] 29.9 pg 27.0-32.0 [facility] Nucleated RBC/100 WBC (Bld) [Ratio] 0 % 0-5 [facility] MCHC Auto (RBC) [Mass/Vol]on 11-30-2021 MCHC (RBC) [Mass/Vol] 32.5 g/dL 32-36 [facility] No Panel Informationon 11-30 Estimated GFR (MDRD) Amer 106 mL/min >60 [facility] Comment on above: GFR Calc Estimated GFR (MDRD) Non-Af Amer 88 mL/min >60 [facility] Comment on above: Non- GFR Calc Miscellaneous Test See comment [facility] Comment on above: TEST RESULT LIMITSSe lenium, Serum/Plasma 150 ug/L 93 - 198A: This test was developed and its performance characteristics determined by [facility]. It has not been cleared or approved by the Food and DrugAdministration. TESTING PERFORMED AT [facility]. ORIGINAL REPORT ON FILE IN LAB CONTAINS ADDITIONAL TEST SITE INFORMATION. Thyroid Stimulating Hormone (TSH) 4.91 uIU/mL 0.358-3.74 [facility] Total Iron Binding Capacity 369 ug/dL 250-450 [facility] Total Triiodothyronine 0.99 ng/mL 0.6-1.81 [facility] Platelets bldon 11-30-2021 Platelets (Bld) [#/Vol] 318 10*3/uL 150-450 [facility] Serum or plasma albumin cherelle urement (mass/volume)on 11-30-2021 Albumin [Mass/Vol] 3.4 g/dL 3.2-5.[address] [facility] Serum or plasma albumin/glob ulin mass ratioon 11-30-2021 Albumin/Globulin [Mass ratio] 0.8 {ratio} 0.9-2.4 [facility] Serum or plasma calcium cherelle urement (mass/volume)on 11-30-2021 Calcium [Mass/Vol] 9.1 mg/dL 8.5-10.[address] [facility] Serum or plasma cholesterol in HDL measurement (mass/volume)on 11-30-2021 Cholesterol in HDL [Mass/Vol] 29 mg/dL >40 [facility] Comment on above: The drugs N-Acetylcy steine and Metamizole may falsely depress this assay. Reference Range HDL <40 mg/dL Low HDL Cholesterol HDL >or= 60 mg/dL High HDL Cholesterol Serum or plasma cholesterol in VLDL measurement (mass/volume)on 11-30-2021 Cholesterol in VLDL [Mass/Vol] 42 mg/dL 5-40 [facility] Serum or plasma creatinine m easurement (mass/volume)on 11-30-2021 Creatinine [Mass/Vol] 0.84 mg/dL 0.55-1.02 [facility] Comment on above: The validity of the calculated GFR & GFRAA in patients over 70 years has not been determined. Clinical correlation is essential. Serum or plasma ferritin burton surement (mass/volume)on 11-30-2021 Ferritin [Mass/Vol] 237 ng/mL 8-252 [facility] Serum or plasma low density lipoprotein (LDL) cholesterol measurement (mass/volume)on 11-30-2021 Cholesterol in LDL [Mass/Vol] 119 mg/dL 0-130 [facility] Serum or plasma urea nitroge n measurement (mass/volume)on 11-30-2021 Urea nitrogen [Mass/Vol] 18 mg/dL 7-18 [facility] Serum or plasma zinc measure ment (mass/volume)on 11-30-2021 Zinc [Mass/Vol] 80 ug/dL 44-115 [facility] Comment on above: Detection Limit = 5P erformed at: - [address] [id number] Director: Harsh Harris MD, Phone: [phone] Thin prep Papanicolaou smear with manual screeningon 11-30-2021 Thin prep Papanicolaou smear with manual screening 49 U/L 15-37 [facility] Thin prep Papanicolaou smear with manual screening 6 5-15 [facility] Thin prep Papanicolaou smear with manual screening 117 ug/dL 80-158 [facility] Comment on above: Detection Limit = 5 Absolute lymphocyte counton 09-27-2021 Lymphocytes Auto (Unsp spec) [#/Vol] 2.31 10*3/uL 0.83-4.51 [facility] Work Phone: Basophil percentageon 2021 Basophils/100 WBC (Bld) 0.6 % 0-1 [facility] Work Phone: Bilirubin [Mass/Vol] 0.40 mg/dL 0.20-1.00 [facility] Work Phone: Comment on above: For patients on eltr ombopag therapy, use of [place] TBIL is not recommended. Eosinophils/100 WBC (Bld) 1.7 % 0-5 [facility] Work Phone: [phone] Neutrophils (Bld) [#/Vol] 3.5 10*3/uL 2.0-7.7 [facility] Work Phone: Neutrophils/100 WBC (Bld) 54.1 % 47-70 [facility] Work Phone: Protein [Mass/Vol] 7.1 g/dL 6.4-8.[address] [facility] Work Phone: WBC (Bld) [#/Vol] 6.4 10*3/uL 4.4-11.[address] [facility] Work Phone: Blood erythrocytes count (nu mber/volume)on 09-27-2021 RBC (Bld) [#/Vol] 4.16 10*6/uL 4.2-5.4 [facility] Work Phone: Blood hemoglobin measurement (mass/volume)on 09-27-2021 Hemoglobin (Bld) [Mass/Vol] 12.4 g/dL 12.0-15.0 [facility] Work Phone: Blood lymphocytes/100 leukoc yteson 09-27-2021 Lymphocytes/100 WBC (Bld) 36.1 % 19-41 [facility] Work Phone: Blood monocytes/100 leukocyt eson 09-27-2021 Monocytes/100 WBC (Bld) 7.2 % 0-10 [facility] Work Phone: Blood platelet mean volumeon 09-27-2021 Platelet mean volume (Bld) [Entitic vol] 9.6 fL 6.2-12.0 [facility] Work Phone: Determination of erythrocyte mean corpuscular volume (MCV)on 09-27-2021 MCV (RBC) [Entitic vol] 88.0 fL 81-99 [facility] Work Phone: Direct bilirubinon 2 Bilirubin.direct [Mass/Vol] 0.11 mg/dL 0.00-0.30 [facility] Work Phone: Hematocrit Auto (Bld) [Volum e fraction]on 09-27-2021 Hematocrit (Bld) [Volume fraction] 36.6 % 37-47 [facility] Work Phone: Iron measurement (mass/mass) on 09-27-2021 Iron (Unsp spec) [Mass/Mass] 84 ug/dL 50-170 [facility] Work Phone: Laboratory - Chemistry and C hemistry - challengeon 09-27-2021 ALP [Catalytic activity/Vol] 56 U/L 45-117 [facility] Work Phone: ALT [Catalytic activity/Vol] 149 U/L 13-56 [facility] Work Phone: Globulin (S) [Mass/Vol] 3.8 g/dL 2.2-4.2 [facility] Work Phone: Laboratory - Hematology and Cell countson 09-27-2021 Erythrocyte distribution width (RBC) [Entitic vol] 45.2 fL 35.1-43.9 [facility] Work Phone: Erythrocyte distribution width (RBC) [Ratio] 14.0 % 11.6-14.6 [facility] Work Phone: Immature granulocytes/100 WBC (Bld) 0.300 % 0.0-0.9 [facility] Work Phone: Comment on above: IG% - Immature Granu locytes (promyelocytes, myelocytes and metamyelocytes) > 1% indicates that a LEFT SHIFT is Present. MCH (RBC) [Entitic mass] 29.8 pg 27.0-32.0 [facility] Work Phone: Nucleated RBC/100 WBC (Bld) [Ratio] 0 % 0-5 [facility] Work Phone: MCHC Auto (RBC) [Mass/Vol]on 09-27-2021 MCHC (RBC) [Mass/Vol] 33.9 g/dL 32-36 [facility] Work Phone: No Panel Informationon 09-27 Total Iron Binding Capacity 352 ug/dL 250-450 [facility] Work Phone: Platelets bldon 09-27-2021 Platelets (Bld) [#/Vol] 336 10*3/uL 150-450 [facility] Work Phone: Serum or plasma albumin cherelle urement (mass/volume)on 09-27-2021 Albumin [Mass/Vol] 3.3 g/dL 3.2-5.[address] [facility] Work Phone: Thin prep Papanicolaou smear with manual screeningon 09-27-2021 Thin prep Papanicolaou smear with manual screening 54 U/L 15-37 [facility] Work Phone: Absolute lymphocyte counton 09-10-2021 Lymphocytes Auto (Unsp spec) [#/Vol] 3.23 10*3/uL 0.83-4.51 [facility] Work Phone: [phone] Basophil percentageon 2021 Basophils/100 WBC (Bld) 0.4 % 0-1 [facility] Work Phone: Chloride [Moles/Vol] 111 mmol/L 98-107 [facility] Work Phone: Eosinophils/100 WBC (Bld) 2.3 % 0-5 [facility] Work Phone: Glucose [Mass/Vol] 119 mg/dL 74-[address] [facility] Work Phone: Comment on above: Fasting Glucose resu lt from 100 to 125 mg/dL suggests IMPAIRED HOMEOSTASIS per A.D.A. criteria. Neutrophils (Bld) [#/Vol] 4.1 10*3/uL 2.0-7.7 [facility] Work Phone: Neutrophils/100 WBC (Bld) 50.0 % 47-70 [facility] Work Phone: Potassium [Moles/Vol] 3.9 mmol/L 3.5-5.1 [facility] Work Phone: Sodium [Moles/Vol] 145 mmol/L 136-[facility] Work Phone: WBC (Bld) [#/Vol] 8.2 10*3/uL 4.4-11.0 [facility] Work Phone: Beta hCG serum qualon 2021 Beta HCG ( test) Ql Negative [facility] Work Phone: Blood erythrocytes count (nu mber/volume)on 09-10-2021 RBC (Bld) [#/Vol] 4.39 10*6/uL 4.2-5.4 [facility] Work Phone: Blood hemoglobin measurement (mass/volume)on 09-10-2021 Hemoglobin (Bld) [Mass/Vol] 12.9 g/dL 12.0-15.0 [facility] Work Phone: Blood lymphocytes/100 leukoc yteson 09-10-2021 Lymphocytes/100 WBC (Bld) 39.3 % 19-41 [facility] Work Phone: Blood monocytes/100 leukocyt eson 09-10-2021 Monocytes/100 WBC (Bld) 7.6 % 0-10 [facility] Work Phone: Blood platelet mean volumeon 09-10-2021 Platelet mean volume (Bld) [Entitic vol] 9.4 fL 6.2-12.0 [facility] Work Phone: Determination of erythrocyte mean corpuscular volume (MCV)on 09-10-2021 MCV (RBC) [Entitic vol] 89.1 fL 81-99 [facility] Work Phone: Hematocrit Auto (Bld) [Volum e fraction]on 09-10-2021 Hematocrit (Bld) [Volume fraction] 39.1 % 37-47 [facility] Work Phone: [phone] Laboratory - Chemistry and C hemistry - challengeon 09-10-2021 CO2 [Moles/Vol] 28.0 mmol/L 21.0-32.0 [facility] Work Phone: Urea nitrogen/Creatinine [Mass ratio] 20.2 mg/mg 10-20 [facility] Work Phone: Laboratory - Drug toxicology on 09-10-2021 Amphetamines Ql (U) Negative <1000 ng/mL [facility] Work Phone: Benzodiazepines Ql (U) Negative < 200 ng/mL [facility] Work Phone: Cannabinoids Screen Ql (U) Negative < 50 ng/mL [facility] Work Phone: Cocaine Ql (U) Negative < 300 ng/mL [facility] Work Phone: Opiates Ql (U) Negative < 300 ng/mL [facility] Work Phone: Laboratory - Hematology and Cell countson 09-10-2021 Erythrocyte distribution width (RBC) [Entitic vol] 44.7 fL 35.1-43.9 [facility] Work Phone: Erythrocyte distribution width (RBC) [Ratio] 13.8 % 11.6-14.6 [facility] Work Phone: Immature granulocytes/100 WBC (Bld) 0.400 % 0.0-0.9 [facility] Work Phone: Comment on above: IG% - Immature Granu locytes (promyelocytes, myelocytes and metamyelocytes) > 1% indicates that a LEFT SHIFT is Present. MCH (RBC) [Entitic mass] 29.4 pg 27.0-32.0 [facility] Work Phone: Nucleated RBC/100 WBC (Bld) [Ratio] 0 % 0-5 [facility] Work Phone: MCHC Auto (RBC) [Mass/Vol]on 09-10-2021 MCHC (RBC) [Mass/Vol] 33.0 g/dL 32-36 [facility] Work Phone: No Panel Informationon 09-10 Ethyl Alcohol Level < 3.0 mg/dL [facility] Work Phone: Comment on above: The serum:whole bloo d ethanol ratio is approximately 1.14and varies slightly with hematocrit. Medical Alcohol reference interval and critical value innon-tolerant individuals; 50 - 100 Impairment 100 Intoxication 100 - 250 Severe Poisoning 250 - 400 Deep/possible fatal coma Estimated Creatinine Clearance Calc 131.81 ml/min [facility] Work Phone: Estimated GFR (MDRD) Amer 144 mL/min >60 [facility] Work Phone: Comment on above: GFR Calc Estimated GFR (MDRD) Non-Af Amer 119 mL/min >60 [facility] Work Phone: Comment on above: Non- GFR Calc MDMA (Ecstasy) Screen Negative < 500 ng/mL [facility] Work Phone: Urine Barbiturates Screen Negative < 200 ng/mL [facility] Work Phone: Urine Drug Screen Comment [facility] Work Phone: Comment on above: CONFIRMATORY [...] Methadone Screen Negative < 300 ng/mL [facility] Work Phone: Platelets bldon 09-10-2021 Platelets (Bld) [#/Vol] 311 10*3/uL 150-450 [facility] Work Phone: Serum or plasma calcium cherelle urement (mass/volume)on 07-23-2022 Calcium [Mass/Vol] 9.0 mg/dL 8.5-10.[address] [facility] Work Phone: Serum or plasma creatinine m easurement (mass/volume)on 09-10-2021 Creatinine [Mass/Vol] 0.64 mg/dL 0.55-1.02 [facility] Work Phone: Comment on above: The validity of the calculated GFR & GFRAA in patients over 70 years has not been determined. Clinical correlation is essential. Serum or plasma urea nitroge n measurement (mass/volume)on 09-10-2021 Urea nitrogen [Mass/Vol] 13 mg/dL 7-18 [facility] Work Phone: Thin prep Papanicolaou smear with manual screeningon 09-10-2021 Thin prep Papanicolaou smear with manual screening 6 5-15 [facility] Work Phone: Urine phencyclidine (PCP) de tectionon 09-10-2021 Phencyclidine Ql (U) Negative < 25 ng/mL [facility] Work Phone: Absolute lymphocyte counton 09-03-2021 Lymphocytes Auto (Unsp spec) [#/Vol] 1.63 10*3/uL 0.83-4.51 [facility] Work Phone: Basophil percentageon 2021 Basophil percentage 0-5 SEEN /hpf 0-5 [facility] Work Phone: Basophils/100 WBC (Bld) 0.6 % 0-1 [facility] Work Phone: Bilirubin [Mass/Vol] 0.60 mg/dL 0.20-1.00 [facility] Work Phone: Comment on above: For patients on eltr ombopag therapy, use of [place] TBIL is not recommended. Chloride [Moles/Vol] 110 mmol/L 98-107 [facility] Work Phone: Eosinophils/100 WBC (Bld) 0.9 % 0-5 [facility] Work Phone: Glucose [Mass/Vol] 104 mg/dL 74-[address] [facility] Work Phone: Comment on above: Fasting Glucose resu lt from 100 to 125 mg/dL suggests IMPAIRED HOMEOSTASIS per A.D.A. criteria. Neutrophils (Bld) [#/Vol] 4.3 10*3/uL 2.0-7.7 [facility] Work Phone: Neutrophils/100 WBC (Bld) 63.1 % 47-70 [facility] Work Phone: Potassium [Moles/Vol] 4.3 mmol/L 3.5-5.1 [facility] Work Phone: Protein [Mass/Vol] 7.2 g/dL 6.4-8.[address] [facility] Work Phone: Sodium [Moles/Vol] 138 mmol/L 136-[address] [facility] Work Phone: WBC (Bld) [#/Vol] 6.8 10*3/uL 4.4-11.[address] [facility] Work Phone: Beta hCG serum qualon 2021 Beta HCG ( test) Ql Negative [facility] Work Phone: Bilirubin Test strip Ql (U)o n 09-03-2021 Bilirubin Ql (U) Negative Negative [facility] Work Phone: Blood erythrocytes count (nu mber/volume)on 09-03-2021 RBC (Bld) [#/Vol] 4.39 10*6/uL 4.2-5.4 [facility] Work Phone: Blood hemoglobin measurement (mass/volume)on 09-03-2021 Hemoglobin (Bld) [Mass/Vol] 12.7 g/dL 12.0-15.0 [facility] Work Phone: [phone] Blood lymphocytes/100 leukoc yteson 09-03-2021 Lymphocytes/100 WBC (Bld) 24.0 % 19-41 [facility] Work Phone: Blood monocytes/100 leukocyt eson 09-03-2021 Monocytes/100 WBC (Bld) 10.8 % 0-10 [facility] Work Phone: Blood platelet mean volumeon 09-03-2021 Platelet mean volume (Bld) [Entitic vol] 9.4 fL 6.2-12.0 [facility] Work Phone: Determination of erythrocyte mean corpuscular volume (MCV)on 09-03-2021 MCV (RBC) [Entitic vol] 89.3 fL 81-99 [facility] Work Phone: Hematocrit Auto (Bld) [Volum e fraction]on 09-03-2021 Hematocrit (Bld) [Volume fraction] 39.2 % 37-47 [facility] Work Phone: Ketones Test strip Ql (U)on 09-03-2021 Ketones Ql (U) Negative Negative [facility] Work Phone: Laboratory - Chemistry and C hemistry - challengeon 09-03-2021 ALP [Catalytic activity/Vol] 56 U/L 45-117 [facility] Work Phone: ALT [Catalytic activity/Vol] 149 U/L 13-56 [facility] Work Phone: CO2 [Moles/Vol] 25.0 mmol/L 21.0-32.0 [facility] Work Phone: Globulin (S) [Mass/Vol] 3.7 g/dL 2.2-4.2 [facility] Work Phone: Lipase [Catalytic activity/Vol] 144 U/L 73-393 [facility] Work Phone: Urea nitrogen/Creatinine [Mass ratio] 14.3 mg/mg 10-20 [facility] Work Phone: Laboratory - Hematology and Cell countson 09-03-2021 Erythrocyte distribution width (RBC) [Entitic vol] 44.6 fL 35.1-43.9 [facility] Work Phone: Erythrocyte distribution width (RBC) [Ratio] 13.5 % 11.6-14.6 [facility] Work Phone: Immature granulocytes/100 WBC (Bld) 0.600 % 0.0-0.9 [facility] Work Phone: Comment on above: IG% - Immature Granu locytes (promyelocytes, myelocytes and metamyelocytes) > 1% indicates that a LEFT SHIFT is Present. MCH (RBC) [Entitic mass] 28.9 pg 27.0-32.0 [facility] Work Phone: Nucleated RBC/100 WBC (Bld) [Ratio] 0 % 0-5 [facility] Work Phone: MCHC Auto (RBC) [Mass/Vol]on 09-03-2021 MCHC (RBC) [Mass/Vol] 32.4 g/dL 32-36 [facility] Work Phone: Mucus LM Ql (Urine sed)on Mucus Ql (Urine sed) 0 SEEN /hpf [facility] Work Phone: Nitrite Test strip Ql (U)on 09-03-2021 Nitrite Ql (U) Negative Negative [facility] Work Phone: No Panel Informationon 09-03 Estimated Creatinine Clearance Calc 75.32 ml/min [facility] Work Phone: Estimated GFR (MDRD) Amer 76 mL/min >60 [facility] Work Phone: Comment on above: GFR Calc Estimated GFR (MDRD) Non-Af Amer 63 mL/min >60 [facility] Work Phone: Comment on above: Non- GFR Calc Platelets bldon 09-03-2021 Platelets (Bld) [#/Vol] 300 10*3/uL 150-450 [facility] Work Phone: Protein Test strip Ql (U)on 09-03-2021 Protein Ql (U) 30 mg/dl Negative [facility] Work Phone: Serum or plasma albumin cherelle urement (mass/volume)on 09-03-2021 Albumin [Mass/Vol] 3.5 g/dL 3.2-5.[address] [facility] Work Phone: Serum or plasma albumin/glob ulin mass ratioon 09-03-2021 Albumin/Globulin [Mass ratio] 0.9 {ratio} 0.9-2.4 [facility] Work Phone: Serum or plasma calcium cherelle urement (mass/volume)on 09-03-2021 Calcium [Mass/Vol] 9.1 mg/dL 8.5-10.[address] [facility] Work Phone: Serum or plasma creatinine m easurement (mass/volume)on 09-03-2021 Creatinine [Mass/Vol] 1.12 mg/dL 0.55-1.02 [facility] Work Phone: Comment on above: The validity of the calculated GFR & GFRAA in patients over 70 years has not been determined. Clinical correlation is essential. Serum or plasma urea nitroge n measurement (mass/volume)on 09-03-2021 Urea nitrogen [Mass/Vol] 16 mg/dL 7-18 [facility] Work Phone: Squamous epithelial cells de tection in urine sediment by light microscopyon 09-03-2021 Epithelial cells.squamous LM Ql (Urine sed) 5-10 SEEN /hpf 5-10 [facility] Work Phone: Thin prep Papanicolaou smear with manual screeningon 09-03-2021 Thin prep Papanicolaou smear with manual screening 55 U/L 15-37 [facility] Work Phone: Thin prep Papanicolaou smear with manual screening 3 5-15 [facility] Work Phone: Urine blood detectionon 08-19 RBC Ql (U) Negative Negative [facility] Work Phone: RBC Ql (U) 0 SEEN /hpf 0-5 [facility] Work Phone: Urine clarityon 09-03-2021 Clarity (U) Cloudy Clear [facility] Work Phone: Urine color determinationon 09-03-2021 Color (U) Yellow Yellow [facility] Work Phone: Urine glucose detectionon Glucose Ql (U) Normal mg/dl Normal [facility] Work Phone: Urine leukocyte esterase det ection by dipstickon 09-03-2021 Leukocyte esterase Test strip Ql (U) 100 /ul Negative [facility] Work Phone: Urine pHon 09-03-2021 pH (U) 5.0 [pH] 5.0 - 8.0 [facility] Work Phone: Urine sediment bacteria coun t by microscopy (number/high power field)on 09-03-2021 Bacteria LM.HPF (Urine sed) [#/Area] 1 /[HPF] None Seen [facility] Work Phone: Urine specific gravity measu rementon 09-03-2021 Specific gravity (U) [Rel density] 1.020 1.002-1.030 [facility] Work Phone: Urobilinogen Auto test strip Ql (U)on 09-03-2021 Urobilinogen Ql (U) Normal mg/dl Normal [facility] Work Phone: Basophil percentageon 2021 Bilirubin [Mass/Vol] 0.50 mg/dL 0.20-1.00 [facility] Work Phone: Comment on above: For patients on eltr ombopag therapy, use of [place] TBIL is not recommended. Chloride [Moles/Vol] 109 mmol/L 98-107 [facility] Work Phone: Cholesterol [Mass/Vol] 212 mg/dL <200 [facility] Work Phone: Comment on above: <200 mg/dL Desirable 200-240 mg/dL Borderline >240 mg/dL High Risk Glucose [Mass/Vol] 84 mg/dL 74-[address] [facility] Work Phone: Potassium [Moles/Vol] 4.2 mmol/L 3.5-5.1 [facility] Work Phone: Protein [Mass/Vol] 7.4 g/dL 6.4-8.[address] [facility] Work Phone: Sodium [Moles/Vol] 140 mmol/L 136-[address] [facility] Work Phone: Triglyceride [Mass/Vol] 219 mg/dL <199 [facility] Work Phone: Comment on above: The drugs N-Acetylcy steine and Metamizole may falsely depress this assay.Serum Triglycerides Reference Interval Normal <150 mg/dL Borderline high 150 - 199 mg/dL High 200 - 499 mg/dL Very High > or = 500 mg/dL Laboratory - Chemistry and C hemistry - challengeon 08-31-2021 ALP [Catalytic activity/Vol] 59 U/L 45-117 [facility] Work Phone: ALT [Catalytic activity/Vol] 197 U/L 13-56 [facility] Work Phone: CO2 [Moles/Vol] 25.0 mmol/L 21.0-32.0 [facility] Work Phone: Globulin (S) [Mass/Vol] 3.8 g/dL 2.2-4.2 [facility] Work Phone: Urea nitrogen/Creatinine [Mass ratio] 22.3 mg/mg 10-20 [facility] Work Phone: No Panel Informationon 08-31 Estimated GFR (MDRD) Amer 119 mL/min >60 [facility] Work Phone: Comment on above: GFR Calc Estimated GFR (MDRD) Non-Af Amer 98 mL/min >60 [facility] Work Phone: Comment on above: Non- GFR Calc Serum or plasma albumin cherelle urement (mass/volume)on 08-31-2021 Albumin [Mass/Vol] 3.6 g/dL 3.2-5.[address] [facility] Work Phone: Serum or plasma albumin/glob ulin mass ratioon 08-31-2021 Albumin/Globulin [Mass ratio] 0.9 {ratio} 0.9-2.4 [facility] Work Phone: Serum or plasma calcium cherelle urement (mass/volume)on 08-31-2021 Calcium [Mass/Vol] 9.1 mg/dL 8.5-10.[address] [facility] Work Phone: Serum or plasma cholesterol in HDL measurement (mass/volume)on 08-31-2021 Cholesterol in HDL [Mass/Vol] 30 mg/dL >40 [facility] Work Phone: Comment on above: The drugs N-Acetylcy steine and Metamizole may falsely depress this assay. Reference Range HDL <40 mg/dL Low HDL Cholesterol HDL >or= 60 mg/dL High HDL Cholesterol Serum or plasma cholesterol in VLDL measurement (mass/volume)on 08-31-2021 Cholesterol in VLDL [Mass/Vol] 44 mg/dL 5-40 [facility] Work Phone: Serum or plasma creatinine m easurement (mass/volume)on 08-31-2021 Creatinine [Mass/Vol] 0.76 mg/dL 0.55-1.02 [facility] Work Phone: Comment on above: The validity of the calculated GFR & GFRAA in patients over 70 years has not been determined. Clinical correlation is essential. Serum or plasma low density lipoprotein (LDL) cholesterol measurement (mass/volume)on 08-31-2021 Cholesterol in LDL [Mass/Vol] 138 mg/dL 0-130 [facility] Work Phone: Serum or plasma urea nitroge n measurement (mass/volume)on 08-31-2021 Urea nitrogen [Mass/Vol] 17 mg/dL 7-18 [facility] Work Phone: Thin prep Papanicolaou smear with manual screeningon 08-31-2021 Thin prep Papanicolaou smear with manual screening 98 U/L 15-37 [facility] Work Phone: Thin prep Papanicolaou smear with manual screening 6 5-15 [facility] Work Phone: Basophil percentageon 2021 Basophil percentage 3.8 mg/dL 2.5-4.9 [facility] [facility] Work Phone: Chloride [Moles/Vol] 108 mmol/L 98-[address] [facility] [address] [facility] Work Phone: Glucose [Mass/Vol] 112 mg/dL 74-[address] [facility] Work Phone: Comment on above: Fasting Glucose resu lt from 100 to 125 mg/dL suggests IMPAIRED HOMEOSTASIS per A.D.A. criteria. Potassium [Moles/Vol] 4.2 mmol/L 3.5-5.1 [facility] Work Phone: Sodium [Moles/Vol] 139 mmol/L 136-[address] [facility] Work Phone: Laboratory - Chemistry and C hemistry - challengeon 08-24-2021 CO2 [Moles/Vol] 29.0 mmol/L 21.0-32.0 [facility] Work Phone: Urea nitrogen/Creatinine [Mass ratio] 17.5 mg/mg 10-20 [facility] Work Phone: No Panel Informationon 08-24 Estimated GFR (MDRD) Amer 148 mL/min >60 [facility] [facility] Work Phone: Comment on above: GFR Calc Estimated GFR (MDRD) Non-Af Amer 123 mL/min >60 [facility] Work Phone: Comment on above: Non- GFR Calc [place] Level 0.60 mmol/L 0.60-1.20 [facility] Work Phone: Thyroid Stimulating Hormone (TSH) 2.96 uIU/mL 0.358-3.74 [facility] Work Phone: Serum or plasma albumin cherelle urement (mass/volume)on 08-24-2021 Albumin [Mass/Vol] 3.4 g/dL 3.2-5.[address] [facility] Work Phone: Serum or plasma calcium cherelle urement (mass/volume)on 08-24-2021 Calcium [Mass/Vol] 9.2 mg/dL 8.5-10.[address] [facility] Work Phone: Serum or plasma creatinine m easurement (mass/volume)on 08-24-2021 Creatinine [Mass/Vol] 0.63 mg/dL 0.55-1.02 [facility] Work Phone: Comment on above: The validity of the calculated GFR & GFRAA in patients over 70 years has not been determined. Clinical correlation is essential. Serum or plasma urea nitroge n measurement (mass/volume)on 08-24-2021 Urea nitrogen [Mass/Vol] 11 mg/dL 7-18 [facility] Work Phone: Basophil percentageon 2021 Chloride [Moles/Vol] 112 mmol/L 98-107 [facility] Work Phone: Glucose [Mass/Vol] 100 mg/dL 74-[address] [facility] Work Phone: Comment on above: Fasting Glucose resu lt from 100 to 125 mg/dL suggests IMPAIRED HOMEOSTASIS per A.D.A. criteria. Potassium [Moles/Vol] 4.1 mmol/L 3.5-5.1 [facility] Work Phone: Sodium [Moles/Vol] 140 mmol/L 136-[address] [facility] Work Phone: WBC (Bld) [#/Vol] 6.6 10*3/uL 4.4-11.[address] [facility] Work Phone: Blood erythrocytes count (nu mber/volume)on 06-27-2021 RBC (Bld) [#/Vol] 4.42 10*6/uL 4.2-5.4 [facility] Work Phone: Blood hemoglobin measurement (mass/volume)on 06-27-2021 Hemoglobin (Bld) [Mass/Vol] 12.7 g/dL 12.0-15.0 [facility] Work Phone: Blood platelet mean volumeon 06-27-2021 Platelet mean volume (Bld) [Entitic vol] 9.4 fL 6.2-12.0 [facility] Work Phone: Determination of erythrocyte mean corpuscular volume (MCV)on 06-27-2021 MCV (RBC) [Entitic vol] 87.3 fL 81-99 [facility] Work Phone: Hematocrit Auto (Bld) [Volum e fraction]on 06-27-2021 Hematocrit (Bld) [Volume fraction] 38.6 % 37-47 [facility] Work Phone: Iron measurement (mass/mass) on 06-27-2021 Iron (Unsp spec) [Mass/Mass] 50 ug/dL 50-170 [facility] Work Phone: Laboratory - Chemistry and C hemistry - challengeon 06-27-2021 CO2 [Moles/Vol] 23.0 mmol/L 21.0-32.0 [facility] Work Phone: Urea nitrogen/Creatinine [Mass ratio] 18.4 mg/mg 10-20 [facility] Work Phone: Laboratory - Hematology and Cell countson 06-27-2021 Erythrocyte distribution width (RBC) [Entitic vol] 45.0 fL 35.1-43.9 [facility] Work Phone: Erythrocyte distribution width (RBC) [Ratio] 14.0 % 11.6-14.6 [facility] Work Phone: MCH (RBC) [Entitic mass] 28.7 pg 27.0-32.0 [facility] Work Phone: MCHC Auto (RBC) [Mass/Vol]on 06-27-2021 MCHC (RBC) [Mass/Vol] 32.9 g/dL 32-36 [facility] Work Phone: No Panel Informationon 06-27 Estimated GFR (MDRD) Amer 176 mL/min >60 [facility] Work Phone: Comment on above: GFR Calc Estimated GFR (MDRD) Non-Af Amer 145 mL/min >60 [facility] Work Phone: Comment on above: Non- GFR Calc Total Iron Binding Capacity 374 ug/dL 250-450 [facility] Work Phone: Platelets bldon 06-27-2021 Platelets (Bld) [#/Vol] 273 10*3/uL 150-450 [facility] Work Phone: Serum or plasma calcium cherelle urement (mass/volume)on 06-27-2021 Calcium [Mass/Vol] 8.7 mg/dL 8.5-10.1 [facility] Work Phone: Serum or plasma creatinine m easurement (mass/volume)on 06-27-2021 Creatinine [Mass/Vol] 0.54 mg/dL 0.55-1.02 Diane ster [facility] Work Phone: Comment on above: The validity of the calculated GFR & GFRAA in patients over 70 years has not been determined. Clinical correlation is essential. Serum or plasma urea nitroge n measurement (mass/volume)on 06-27-2021 Urea nitrogen [Mass/Vol] 10 mg/dL 7-18 [facility] Work Phone: Thin prep Papanicolaou smear with manual screeningon 06-27-2021 Thin prep Papanicolaou smear with manual screening 5 5-15 [facility] Work Phone: MRI Brain w/oon 02-15-2021 [...] by MARY CORDOVA on 02/15/2021 1547 Normal [facility] LABORATORYOrdered By: Sandra Spain on 12-14-2020 Basophil, [...] No radiographic evidence of acute osseous injury. Trestle Mainternance Laborer: ELLYN Transcribe Date/Time: Jan 07 2020 9:27A Dictated by : ROBB JULES MD This examination was interpreted and the report reviewed and electronically signed by: ROBB JULES MD on Jan 07 2020 9:29AM EST DIVISION OF RADIOLOGY Radiology Study observation (narrative) [facility] No Panel InformationOrdered By: Ccf Provider on 01-07-2020 [facility] XR Ankle - left AP and Later [...] Joint spaces preserved. DIVISION OF RADIOLOGY Provider, [facility] - 01/07/2020 * * *Final Report* [...] No radiographic evidence of acute osseous injury. Trestle Mainternance Laborer: ELLYN Transcribe Date/Time: Jan 07 2020 9:27A Dictated by : ROBB JULES MD This examination was interpreted and the report reviewed and electronically signed by: ROBB JULES MD on Jan 07 2020 9:29AM EST [facility] XR Foot - left AP and Latera [...] Joint spaces preserved. DIVISION OF RADIOLOGY [facility], [facility] 01/07/2020 * * *Final Report* [...] No radiographic evidence of acute osseous injury. Trestle Mainternance Laborer: MATTHIEUB Transcribe Date/Time: Jan 07 2020 9:27A Dictated by : ROBB JULES MD This examination was interpreted and the report reviewed and electronically signed by: ROBB JULES MD on Jan 07 2020 9:29AM EST [facility] Progress Noteon 01-31-2017 Wall Covering Installer Authentication Interface Message Text SUBJECTIVE: Marion Gutierrez [...] 14, 2016. [facility]. At that time she was diagnosed with [...] medication and then placed on Abilify and [place] at this lastadmission. I did review the [...] may recall Marion's mother had noted dark andreafski around her neck, axilla,and cleavage area for [...] right ankle Autism Depression hosp at 10y [facility] prior to Dx w/autism spectrum [...] the 01/31/17 encounter (OfficeVisit) [facility] ARIPiprazole (ABILIFY) 10 MG [...] Z= 2.24) Growth percentiles are based on [facility] 2-20 Years data.Ht Readings from Last 3 Encounters:01/31/17 167.9 cm08/02/16 167.9 cm (76 %, Z= 0.71)*06/21/16 167.5 cm (74 %, Z= 0.65) Growth percentiles are based on [facility] 2-20 Years data.Body mass index is 39.77 [...] active.5. 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 Obtain ReaG5uI total of 25 minutes was spent during the visit today with more than 50% oftotal time spent in face to face counseling and/or coordination of care. Normal [facility] Progress Noteon 09-18-2016 Wall Covering Installer Authentication Interface Message Text CHIEF COMPLAINT: Shoulder [...] right ankle Autism Depression hosp at 10y [facility] prior to Dx w/autism spectrum disorder,PDD,ADHD Developmental delay Fatty liver seen Dr. Thomson about 3-4 yrs ago for this condition Foot pain Fractures Irritable bowel syndrome REASON FOR INVOLVEMENT W/GI, DR FYDA ODD (oppositional defiant disorder) PCOS (polycystic ovarian [...] present illness or past medical history. Normal [facility] Wall Covering Installer Authentication Interface Message Text PHYSICIAN STATEMENT:This patient was personally seen and examined by me in conjunction with ournurse practioner, Delmi Hopper MRhonaS.N, C.N.P.. After shared discussion, elizabeth documented the pertinent aspects of this visit. [...] In addition she is scheduled tosee an electronic data interchange specialist because of some unusual mobility in one of the eyes.There are many factors there probably contributing to her generalized pain inthe shoulders and knees and hopefully we can work these out without furtherextensive workup. Normal [facility] Ova and parasites Ova and parasites identified LM Nom (Unsp spec) [facility] Work Phone: Stool lactoferrin detection by immunoassay Lactoferrin IA Ql (Stl) [facility] Work Phone: Vital Signs Date Time Vital Sign Value Performing Clinician Facility 12-09-2024 08:38-0400 Body height 167.64 cm Zebulun Beam 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 Work Phone: [facility] 12-09-2024 08:27-0400 Body mass index (BMI) [Ratio] 46.9 kg/m2 Zebulun Beam 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 Work Phone: 3(359)755-447718 [address] [place] [address] 12-09-2024 08:27-0400 Body weight 131.79 kg Zebulun Beam 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 Work Phone: 5(510)204-372518 [address] [place] [address] 12-09-2024 08:27-0400 Diastolic blood pressure 83 mm[Hg] Zebulun Beam 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 Work Phone: 9(970)897-169918 [address] [place] [address] 12-09-2024 08:27-0400 Systolic blood pressure 135 mm[Hg] Zebulun Beam 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 Work Phone: 3(327)250-965618 [address] [place] [address] 11-28-2024 13:27-0400 Diastolic blood pressure 79 mm[Hg] Zebulun Beam 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-C Work Phone: 8(227)943-467518 [address] [place] [address] 11-28-2024 13:27-0400 SaO2% (BldA) [Mass fraction] 98 % Zebulun Beam 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 Work Phone: 7(988)071-543018 [address] [place] [address] 11-28-2024 13:27-0400 Systolic blood pressure 123 mm[Hg] Zebulun Beam 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C Work Phone: 1(279)450-485718 [address] [place] [address] 11-28-2024 07:44-0400 Body mass index (BMI) [Ratio] 47.2 kg/m2 Zebulun Beam 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 Work Phone: 5(042)792-895718 [address] [place] [address] 11-28-2024 07:44-0400 Body weight 132.9 kg Zebulun Beam 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 Work Phone: 1(646)431-871718 [address] [place] [address] 11-28-2024 07:44-0400 Heart rate 47 /min Zebulun Beam 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 Work Phone: 8(208)998-615518 [address] [place] [address] 11-28-2024 07:44-0400 Respiratory rate 18 /min Zebulun Beam 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C Work Phone: 2(071)755-290118 [address] [place] [address] 11-18-2024 18:13-0400 Body temperature 98.5 [degF] Zebulun Beam 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 Work Phone: 9(214)052-873318 [address] [place] [address] 11-18-2024 18:13-0400 Diastolic blood pressure 71 mm[Hg] Zebulun Beam 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C Work Phone: 3(266)263-905318 [address] [place] [address] 11-18-2024 18:13-0400 Heart rate 65 /min Zebulun Beam 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 Work Phone: 5(794)519-075918 [address] [place] [address] 11-18-2024 18:13-0400 Respiratory rate 16 /min Zebulun Beam 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 Work Phone: 8(692)223-757018 [address] [place] [address] 11-18-2024 18:13-0400 SaO2% (BldA) [Mass fraction] 97 % Zebulun Beam 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 Work Phone: 8(423)446-415818 [address] [place] [address] 11-18-2024 18:13-0400 Systolic blood pressure 153 mm[Hg] Zebulun Beam 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-C Work Phone: 9(824)511-955818 [address] [place] [address] 11-18-2024 15:23-0400 Body height 167.64 cm Zebulun Beam 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 Work Phone: 4(076)065-759518 [address] [place] [address] 11-18-2024 15:23-0400 Body mass index (BMI) [Ratio] 48.2 kg/m2 Zebulun Beam 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 Work Phone: 4(797)444-215318 [address] [place] [address] 11-18-2024 15:23-0400 Body weight 135.4 kg Zebulun Beam 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 Work Phone: 7(308)678-268818 [address] [place] [address] 10-27-2024 11:30-0400 Body temperature 99.6 [degF] Naina Da Silva 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 Work Phone: 8(427)995-800918 [address] [place] [address] 10-27-2024 11:30-0400 Diastolic blood pressure 88 mm[Hg] Naina Da Silva 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 Work Phone: 5(674)099-020818 [address] [place] [address] 10-27-2024 11:30-0400 Heart rate 74 /min Naina Da Silva 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 Work Phone: 5(510)352-176718 [address] [place] [address] 10-27-2024 11:30-0400 Respiratory rate 16 /min Naina Da Silva 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 Work Phone: 8(585)733-620318 [address] [place] [address] 10-27-2024 11:30-0400 SaO2% (BldA) [Mass fraction] 100 % Naina Da Silva 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C Work Phone: [facility] 10-27-2024 11:30-0400 Systolic blood pressure 139 mm[Hg] Naina Da Silva 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-C Work Phone: [facility] 10-27-2024 10:07-0400 Body height 167.64 cm Naina aD Silva 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C Work Phone: [facility] 10-27-2024 10:07-0400 Body mass index (BMI) [Ratio] 46.2 kg/m2 Naina Da Silva 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C Work Phone: [facility] 10-27-2024 10:07-0400 Body weight 130 kg Naina Da Silva 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C Work Phone: [facility] 10-16-2024 10:26-0400 Body mass index (BMI) [Ratio] 45.55 kg/m2 Jey Johnson MD Work Phone: [facility] 10-16-2024 10:26-0400 Body temperature 98.01 [degF] Jey Johnson MD Work Phone: [facility] 10-16-2024 10:26-0400 Body weight 131.91 kg Jey Johnson MD Work Phone: [facility] 10-16-2024 10:26-0400 Diastolic blood pressure 84 mm[Hg] Jey Johnson MD Work Phone: [facility] 10-16-2024 10:26-0400 Heart rate 78 /min Jey Johnson MD Work Phone: [facility] 10-16-2024 10:26-0400 Respiratory rate 22 /min Jey Johnson MD Work Phone: [facility] 10-16-2024 10:26-0400 SaO2% (BldA) [Mass fraction] 98 % Jey Johnson MD Work Phone: [facility] 10-16-2024 10:26-0400 Systolic blood pressure 120 mm[Hg] Jey Johnson MD Work Phone: [facility] 09-27-2024 20:42-0400 Body temperature 96.2 [degF] Zebulun Beam 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 Work Phone: 4(988)140-632992 [place] [address] 09-27-2024 20:42-0400 Diastolic blood pressure 95 mm[Hg] Zebulun Beam 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 Work Phone: 4(053)619-469392 [place] [address] 09-27-2024 20:42-0400 Heart rate 95 /min Zebulun Beam 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 Work Phone: 1(538)412-114892 [place] [address] 09-27-2024 20:42-0400 Respiratory rate 20 /min Zebulun Beam 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-C Work Phone: 2(633)293-233092 [place] [address] 09-27-2024 20:42-0400 SaO2% (BldA) [Mass fraction] 100 % Zebulun Beam 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-C Work Phone: 8(509)932-093892 [place] [address] 09-27-2024 20:42-0400 Systolic blood pressure 146 mm[Hg] Zebulun Beam 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-C Work Phone: 2(075)077-315292 [place] [address] 09-27-2024 11:50-0400 Body height 167.64 cm Zebulun Beam 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-C Work Phone: 1(551)274-908492 [place] [address] 09-27-2024 11:50-0400 Body mass index (BMI) [Ratio] 46.5 kg/m2 Zebulun Beam 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 Work Phone: 6(531)933-091992 [place] [address] 09-27-2024 11:50-0400 Body weight 130.9 kg Zebulun Beam 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 Work Phone: 9(180)137-335818 [address] [place] [address] 09-21-2024 22:47-0400 Body temperature 97.6 [degF] Naina Da Silva 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-C Work Phone: 2(720)427-003692 [place] [address] 09-21-2024 22:47-0400 Diastolic blood pressure 72 mm[Hg] Naina Da Silva 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-C Work Phone: 6(300)282-537392 [place] [address] 09-21-2024 22:47-0400 Heart rate 75 /min Naina Da Silva 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 Work Phone: 0(501)807-916892 [place] [address] 09-21-2024 22:47-0400 Respiratory rate 16 /min Naina Da Silva 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 Work Phone: 4(187)056-679150 [address] 09-21-2024 22:47-0400 SaO2% (BldA) [Mass fraction] 98 % Naina Da Silva 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-C Work Phone: 2(969)159-993892 [place] [address] 09-21-2024 22:47-0400 Systolic blood pressure 145 mm[Hg] Naina Da Silva 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-C Work Phone: 4(208)511-279418 [address] [place] [address] 09-21-2024 20:32-0400 Body height 167.64 cm Naina Da Silva 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-C Work Phone: 1(216)781-917518 [address] [place] [address] 09-21-2024 20:32-0400 Body mass index (BMI) [Ratio] 47.1 kg/m2 Naina Da Silva 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 Work Phone: 6(043)805-345392 [place] [address] 09-21-2024 20:32-0400 Body weight 132.44 kg Naina Da Silva 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 Work Phone: 7(535)466-456318 [address] [place] [address] 09-04-2024 23:45-0400 Body temperature 98.4 [degF] Naina Da Silva 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 Work Phone: 8(399)497-271092 [place] [address] 09-04-2024 23:45-0400 Diastolic blood pressure 74 mm[Hg] Naina Da Silva 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-C Work Phone: 3(347)095-451450 [address] 09-04-2024 23:45-0400 Heart rate 85 /min Naina Da Silva 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 Work Phone: 7(930)154-720092 [place] [address] 09-04-2024 23:45-0400 Respiratory rate 14 /min Naina Da Silva 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 Work Phone: 2(291)578-139592 [place] [address] 09-04-2024 23:45-0400 SaO2% (BldA) [Mass fraction] 99 % Naina Da Silva 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 Work Phone: 8(971)633-223792 [place] [address] 09-04-2024 23:45-0400 Systolic blood pressure 141 mm[Hg] Naina Da Silva 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 Work Phone: 5(557)942-309718 [address] [place] [address] 09-04-2024 21:14-0400 Body height 167.64 cm Naina Da Silva 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 Work Phone: 7(029)987-563518 [address] [place] [address] 09-04-2024 21:14-0400 Body mass index (BMI) [Ratio] 48.2 kg/m2 Naina Da Silva 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 Work Phone: 4(829)244-682218 [address] [place] [address] 09-04-2024 21:14-0400 Body weight 135.62 kg Naina Da Silva 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 Work Phone: 8(705)533-181018 [address] [place] [address] 07-24-2024 07:25-0400 Body mass index (BMI) [Ratio] 47 kg/m2 Naina Da Silva 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 Work Phone: 3(860)703-761418 [address] [place] [address] 07-24-2024 07:25-0400 Body weight 132.9 kg Naina Da Silva 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 Work Phone: 1(078)444-823118 [address] [place] [address] 07-24-2024 07:25-0400 Diastolic blood pressure 76 mm[Hg] Naina Da Silva 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 Work Phone: 7(518)816-526518 [address] [place] [address] 07-24-2024 07:25-0400 Heart rate 56 /min Naina Da Silva 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 Work Phone: 9(156)123-151718 [address] [place] [address] 07-24-2024 07:25-0400 Respiratory rate 18 /min Naina Da Silva 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 Work Phone: 4(745)984-581218 [address] [place] [address] 07-24-2024 07:25-0400 SaO2% (BldA) [Mass fraction] 97 % Naina Da Silva 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 Work Phone: 1(326)585-183318 [address] [place] [address] 07-24-2024 07:25-0400 Systolic blood pressure 121 mm[Hg] Naina Da Silva 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 Work Phone: 5(154)453-209618 [address] [place] [address] 07-15-2024 10:49-0400 Body height 170.2 cm Jey Johnson MD Work Phone: [facility] 07-15-2024 10:49-0400 Body mass index (BMI) [Ratio] 46.42 kg/m2 Jey Johnson MD Work Phone: [facility] 07-15-2024 10:49-0400 Body weight 134.45 kg Jey Johnson MD Work Phone: [facility] 07-15-2024 10:49-0400 Diastolic blood pressure 78 mm[Hg] Jey Johnson MD Work Phone: [facility] 07-15-2024 10:49-0400 Heart rate 61 /min Jey Johnson MD Work Phone: [facility] 07-15-2024 10:49-0400 Respiratory rate 20 /min Jey Johnson MD Work Phone: [facility] 07-15-2024 10:49-0400 SaO2% (BldA) [Mass fraction] 97 % Jey Johnson MD Work Phone: [facility] 07-15-2024 10:49-0400 Systolic blood pressure 122 mm[Hg] Jey Johnson MD Work Phone: [facility] 06-03-2024 13:14-0400 Body temperature 97.9 [degF] Naina Da Silva 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 Work Phone: [facility] 06-03-2024 13:14-0400 Diastolic blood pressure 87 mm[Hg] Naina Da Silva 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C Work Phone: [facility] 06-03-2024 13:14-0400 Heart rate 107 /min Naina Da Silva 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C Work Phone: [facility] 06-03-2024 13:14-0400 Respiratory rate 22 /min Naina Da Silva 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 Work Phone: [facility] 06-03-2024 13:14-0400 SaO2% (BldA) [Mass fraction] 99 % Naina Da Silva 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 Work Phone: 6(246)000-735492 [place] [address] 06-03-2024 13:14-0400 Systolic blood pressure 161 mm[Hg] Naina Da Silva 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 Work Phone: 7(355)976-923618 [address] [place] [address] 06-03-2024 09:38-0400 Body height 168 cm Naina Da Silva 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 Work Phone: 7(105)220-576418 [address] [place] [address] 06-03-2024 09:38-0400 Body mass index (BMI) [Ratio] 47.7 kg/m2 Naina Da Silva 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 Work Phone: 8(130)767-378818 [address] [place] [address] 06-03-2024 09:38-0400 Body weight 134.7 kg Naina Da Silva 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 Work Phone: 7(351)124-461718 [address] [place] [address] 06-02-2024 19:26-0400 Body height 167.64 cm Naina Da Silva 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 Work Phone: 8(575)634-911818 [address] [place] [address] 06-02-2024 19:26-0400 Body mass index (BMI) [Ratio] 47.9 kg/m2 Naina Da Silva 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 Work Phone: 1(498)379-546518 [address] [place] [address] 06-02-2024 19:26-0400 Body temperature 97.8 [degF] Naina Da Silva 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 Work Phone: 3(857)197-306218 [address] [place] [address] 06-02-2024 19:26-0400 Body weight 134.76 kg Naina Da Silva 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 Work Phone: 8(329)643-929018 [address] [place] [address] 06-02-2024 19:26-0400 Diastolic blood pressure 112 mm[Hg] Naina Da Silva 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 Work Phone: 1(502)494-340018 [address] [place] [address] 06-02-2024 19:26-0400 Heart rate 103 /min Naina Da Silva 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 Work Phone: 5(147)041-224118 [address] [place] [address] 06-02-2024 19:26-0400 Respiratory rate 13 /min Naina Da Silva 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 Work Phone: 1(134)348-646818 [address] [place] [address] 06-02-2024 19:26-0400 SaO2% (BldA) [Mass fraction] 100 % Naina Da Silva 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 Work Phone: 8(971)653-228118 [address] [place] [address] 06-02-2024 19:26-0400 Systolic blood pressure 172 mm[Hg] Naina Da Silva 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 Work Phone: [facility] 05-29-2024 14:41-0400 Diastolic blood pressure 114 mm[Hg] Naina Da Silva 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 Work Phone: [facility] 05-29-2024 14:41-0400 Systolic blood pressure 161 mm[Hg] Naina Da Silva 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 Work Phone: [facility] 05-29-2024 14:29-0400 Body mass index (BMI) [Ratio] 47.7 kg/m2 Naina Da Silva 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 Work Phone: [facility] 05-29-2024 14:29-0400 Body weight 134.26 kg Naina Da Silva 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 Work Phone: 0(405)946-805092 [place] [address] 05-29-2024 14:29-0400 Heart rate 98 /min Naina Da Silva 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 Work Phone: [facility] 05-29-2024 14:29-0400 Respiratory rate 18 /min Naina Da Silva 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 Work Phone: 5(644)608-694992 [place] [address] 05-29-2024 14:29-0400 SaO2% (BldA) [Mass fraction] 97 % Naina Da Silva 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 Work Phone: [facility] 05-16-2024 08:52-0400 Body mass index (BMI) [Ratio] 46.28 kg/m2 Huey Cortes DO, PhD Work Phone: [facility] 05-16-2024 08:52-0400 Body weight 134.04 kg Huey Cortes DO PhD Work Phone: [facility] Comment on above: Patient-reported 05-16-2024 08:52-0400 Diastolic blood pressure 102 mm[Hg] Huey Cortes DO, PhD Work Phone: [facility] Comment on above: Patient-reported 05-16-2024 08:52-0400 Heart rate 100 /min Huey Cortes DO PhD Work Phone: [facility] Comment on above: Patient-reported 05-16-2024 08:52-0400 Systolic blood pressure 177 mm[Hg] Huey Cortes DO PhD Work Phone: [facility] Comment on above: Patient-reported 05-15-2024 00:14-0400 Body temperature 98.1 [degF] Naina Da Silva NP-C Work Phone: [facility] 05-15-2024 00:14-0400 Diastolic blood pressure 65 mm[Hg] Naina Da Silva 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 Work Phone: 7(832)470-043292 [place] [address] 05-15-2024 00:14-0400 Heart rate 88 /min Naina Da Silva 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 Work Phone: 1(258)024-859092 [place] [address] 05-15-2024 00:14-0400 Respiratory rate 22 /min Naina Da Silva 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 Work Phone: 2(910)036-225592 [place] [address] 05-15-2024 00:14-0400 SaO2% (BldA) [Mass fraction] 99 % Naina Da Silva 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 Work Phone: 8(674)276-608392 [place] [address] 05-15-2024 00:14-0400 Systolic blood pressure 123 mm[Hg] Naina Da Silva 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 Work Phone: 5(991)514-045192 [place] [address] 05-14-2024 20:47-0400 Body height 167.64 cm Naina Da Silva NP-C Work Phone: 8(994)684-812992 [place] [address] 05-14-2024 20:47-0400 Body mass index (BMI) [Ratio] 47.1 kg/m2 Naina Da Silva 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 Work Phone: 9(955)384-608892 [place] [address] 05-14-2024 20:47-0400 Body weight 132.53 kg Naina Da Silva NP-C Work Phone: 3(118)659-402892 [place] [address] 05-08-2024 17:24-0400 Body temperature 97.2 [degF] Naina Da Silva NP-C Work Phone: 9(844)580-766292 [place] [address] 05-08-2024 17:24-0400 Diastolic blood pressure 96 mm[Hg] Naina Da Silva 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 Work Phone: [facility] 05-08-2024 17:24-0400 Heart rate 79 /min Naina Da Silva 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 Work Phone: [facility] 05-08-2024 17:24-0400 Respiratory rate 14 /min Nainaben Da Silva 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 Work Phone: [facility] 05-08-2024 17:24-0400 SaO2% (BldA) [Mass fraction] 99 % Nainaben Da Silva 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 Work Phone: 6(833)855-241792 [place] [address] 05-08-2024 17:24-0400 Systolic blood pressure 128 mm[Hg] Nainaben Da Silva 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 Work Phone: 5(588)018-886992 [place] [address] 05-08-2024 14:36-0400 Body height 167.64 cm Naina Da Silva 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 Work Phone: 4(610)024-878492 [place] [address] 05-08-2024 14:36-0400 Body mass index (BMI) [Ratio] 46.1 kg/m2 Nainakourtney Da Silva 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 Work Phone: 2(722)157-156092 [place] [address] 05-08-2024 14:36-0400 Body weight 129.72 kg Nainaben Da Silva 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 Work Phone: [facility] 04-15-2024 11:25-0500 Body height 170.2 cm Jey Johnson MD Work Phone: [facility] 04-15-2024 11:25-0500 Body mass index (BMI) [Ratio] 45.67 kg/m2 Jey Johnson MD Work Phone: [facility] 04-15-2024 11:25-0500 Body weight 132.27 kg Jey Johnson MD Work Phone: [facility] 04-15-2024 11:25-0500 Diastolic blood pressure 68 mm[Hg] Jey Johnson MD Work Phone: [facility] 04-15-2024 11:25-0500 Heart rate 68 /min Jey Johnson MD Work Phone: [facility] 04-15-2024 11:25-0500 Respiratory rate 20 /min Jey Johnson MD Work Phone: [facility] 04-15-2024 11:25-0500 SaO2% (BldA) [Mass fraction] 98 % Jey Johnson MD Work Phone: [facility] 04-15-2024 11:25-0500 Systolic blood pressure 120 mm[Hg] Jey Johnson MD Work Phone: [facility] 04-14-2024 16:19-0500 Body mass index (BMI) [Ratio] 46.17 kg/m2 Lincoln Balderas MD Work Phone: [facility] 04-14-2024 16:19-0500 Body temperature 98.49 [degF] Lincoln Balderas MD Work Phone: [facility] 04-14-2024 16:19-0500 Body weight 133.7 kg Lincoln Balderas MD Work Phone: [facility] 04-14-2024 16:19-0500 Diastolic blood pressure 98 mm[Hg] Lincoln Balderas MD Work Phone: [facility] 04-14-2024 16:19-0500 Heart rate 76 /min Lincoln Balderas MD Work Phone: [facility] 04-14-2024 16:19-0500 Respiratory rate 18 /min Lincoln Balderas MD Work Phone: [facility] 04-14-2024 16:19-0500 SaO2% (BldA) [Mass fraction] 97 % Lincoln Balderas MD Work Phone: [facility] 04-14-2024 16:19-0500 Systolic blood pressure 142 mm[Hg] Lincoln Balderas MD Work Phone: [facility] 01-25-2024 12:44-0500 Body mass index (BMI) [Ratio] 46.61 kg/m2 Louis Schmidt APRN.[employer] Work Phone: [facility] 01-25-2024 12:44-0500 Body temperature 98.6 [degF] Louis Schmidt APRN.[employer] Work Phone: [facility] 01-25-2024 12:44-0500 Body weight 135 kg Louis Schmidt APRN.[employer] Work Phone: [facility] 01-25-2024 12:44-0500 Diastolic blood pressure 90 mm[Hg] Louis Schmidt APRN.[employer] Work Phone: [facility] 01-25-2024 12:44-0500 Heart rate 69 /min Louis Schmidt APRN.[employer] Work Phone: [facility] 01-25-2024 12:44-0500 Respiratory rate 20 /min Louis Schmidt APRN.[employer] Work Phone: [facility] 01-25-2024 12:44-0500 SaO2% (BldA) [Mass fraction] 100 % Louis Schmidt APRN.[employer] Work Phone: [facility] 01-25-2024 12:44-0500 Systolic blood pressure 132 mm[Hg] Louis Schmidt APRN.[employer] Work Phone: [facility] 01-24-2024 13:52-0500 Body mass index (BMI) [Ratio] 46.61 kg/m2 Krislyn Aberegg PA Work Phone: [facility] 01-24-2024 13:52-0500 Body temperature 97.9 [degF] Krislyn Aberegg PA Work Phone: [facility] 01-24-2024 13:52-0500 Body weight 135 kg Krislyn Aberegg PA Work Phone: [facility] 01-24-2024 13:52-0500 Diastolic blood pressure 82 mm[Hg] Krislyn Aberegg PA Work Phone: [facility] 01-24-2024 13:52-0500 Heart rate 73 /min Krislyn Aberegg PA Work Phone: [facility] 01-24-2024 13:52-0500 Respiratory rate 20 /min Krislyn Aberegg PA Work Phone: [facility] 01-24-2024 13:52-0500 SaO2% (BldA) [Mass fraction] 98 % Krislyn Aberegg PA Work Phone: [facility] 01-24-2024 13:52-0500 Systolic blood pressure 128 mm[Hg] Krislyn Aberegg PA Work Phone: [facility] 01-14-2024 14:31-0500 Body height 167.64 cm Naina Da Silva 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 Work Phone: [facility] 01-14-2024 14:31-0500 Body mass index (BMI) [Ratio] 47.4 kg/m2 Naina Da Silva 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 Work Phone: [facility] 01-14-2024 14:31-0500 Body weight 133.35 kg Naina Da Silva 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 Work Phone: [facility] 01-14-2024 14:31-0500 Diastolic blood pressure 78 mm[Hg] Naina Da Silva 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 Work Phone: [facility] 01-14-2024 14:31-0500 Heart rate 93 /min Naina Da Silva 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 Work Phone: [facility] 01-14-2024 14:31-0500 Respiratory rate 18 /min Naina Da Silva 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 Work Phone: [facility] 01-14-2024 14:31-0500 SaO2% (BldA) [Mass fraction] 96 % Naina Da Silva 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 Work Phone: [facility] 01-14-2024 14:31-0500 Systolic blood pressure 127 mm[Hg] Naina Da Silva 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 Work Phone: [facility] 01-08-2024 11:52-0500 Body height 170.2 cm Jey Johnson MD Work Phone: [facility] 01-08-2024 11:52-0500 Body mass index (BMI) [Ratio] 46.05 kg/m2 Jey Johnson MD Work Phone: [facility] 01-08-2024 11:52-0500 Body weight 133.36 kg Jey Johnson MD Work Phone: [facility] 01-08-2024 11:52-0500 Diastolic blood pressure 76 mm[Hg] Jey Johnson MD Work Phone: [facility] 01-08-2024 11:52-0500 Heart rate 72 /min Jey Johnson MD Work Phone: [facility] 01-08-2024 11:52-0500 Respiratory rate 21 /min Jey Johnson MD Work Phone: [facility] 01-08-2024 11:52-0500 SaO2% (BldA) [Mass fraction] 100 % Jey Johnson MD Work Phone: [facility] 01-08-2024 11:52-0500 Systolic blood pressure 122 mm[Hg] Jey Johnson MD Work Phone: [facility] 12-31-2023 13:55-0500 Body height 170.2 cm [place] 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 Work Phone: [facility] 12-31-2023 13:55-0500 Body mass index (BMI) [Ratio] 46.36 kg/m2 [place] 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 Work Phone: [facility] 12-31-2023 13:55-0500 Body weight 134.26 kg [place] 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 Work Phone: [facility] 12-31-2023 13:55-0500 Diastolic blood pressure 86 mm[Hg] [place] 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 Work Phone: [facility] 12-31-2023 13:55-0500 Heart rate 75 /min [place] 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 Work Phone: [facility] 12-31-2023 13:55-0500 SaO2% (BldA) [Mass fraction] 99 % [place] 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 Work Phone: [facility] 12-31-2023 13:55-0500 Systolic blood pressure 124 mm[Hg] [place] 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 Work Phone: [facility] 10-26-2023 15:23-0400 Body height 170.2 cm Jey Johnson MD Work Phone: [facility] 10-26-2023 15:23-0400 Body mass index (BMI) [Ratio] 43.92 kg/m2 Jey Johnson MD Work Phone: [facility] 10-26-2023 15:23-0400 Body temperature 97.9 [degF] Jey Johnson MD Work Phone: [facility] 10-26-2023 15:23-0400 Body weight 127.19 kg Jey Johnson MD Work Phone: [facility] 10-26-2023 15:23-0400 Heart rate 61 /min Jey Johnson MD Work Phone: [facility] 10-26-2023 15:23-0400 SaO2% (BldA) [Mass fraction] 99 % Jey Johnson MD Work Phone: [facility] 09-13-2023 16:21-0400 Body temperature 98.91 [degF] Lincoln Balderas MD Work Phone: [facility] 09-13-2023 16:21-0400 Body weight 135.5 kg Lincoln Balderas MD Work Phone: [facility] 09-13-2023 16:21-0400 Diastolic blood pressure 68 mm[Hg] Lincoln Balderas MD Work Phone: [facility] 09-13-2023 16:21-0400 Heart rate 85 /min Lincoln Balderas MD Work Phone: [facility] 09-13-2023 16:21-0400 Respiratory rate 20 /min Lincoln Balderas MD Work Phone: [facility] 09-13-2023 16:21-0400 SaO2% (BldA) [Mass fraction] 95 % Lincoln Balderas MD Work Phone: [facility] 09-13-2023 16:21-0400 Systolic blood pressure 104 mm[Hg] Lincoln Balderas MD Work Phone: [facility] 06-03-2023 22:04-0400 Body temperature 97 [degF] [facility] Work Phone: [facility] 06-03-2023 22:04-0400 Diastolic blood pressure 72 mm[Hg] [facility] Work Phone: 5(378)330-274692 [place] [address] 06-03-2023 22:04-0400 Heart rate 102 /min [facility] Work Phone: 2(322)248-612792 [place] [address] 06-03-2023 22:04-0400 Respiratory rate 16 /min [facility] Work Phone: 0(593)736-853292 [place] [address] 06-03-2023 22:04-0400 SaO2% (BldA) [Mass fraction] 96 % [facility] Work Phone: [facility] 06-03-2023 22:04-0400 Systolic blood pressure 120 mm[Hg] [facility] Work Phone: 7(183)861-260092 [place] [address] 06-03-2023 20:26-0400 Body height 167.64 cm [facility] Work Phone: 2(620)772-222292 [place] [address] 06-03-2023 20:26-0400 Body mass index (BMI) [Ratio] 47.7 kg/m2 [facility] Work Phone: 4(741)806-160192 [place] [address] 06-03-2023 20:26-0400 Body weight 134.03 kg [facility] Work Phone: 9(900)849-445218 [address] [place] [address] 05-08-2023 16:48-0400 Body temperature 97.4 [degF] [facility] Work Phone: 1(388)193-482818 [address] [place] [address] 05-08-2023 16:48-0400 Diastolic blood pressure 69 mm[Hg] [facility] Work Phone: 4(040)623-508318 [address] [place] [address] 05-08-2023 16:48-0400 Heart rate 91 /min [facility] Work Phone: 1(566)361-333818 [address] [place] [address] 05-08-2023 16:48-0400 Respiratory rate 18 /min [facility] Work Phone: 2(702)188-070618 [address] [place] [address] 05-08-2023 16:48-0400 SaO2% (BldA) [Mass fraction] 98 % [facility] Work Phone: 8(043)224-923518 [address] [place] [address] 05-08-2023 16:48-0400 Systolic blood pressure 114 mm[Hg] [facility] Work Phone: 3(793)564-074218 [address] [place] [address] 05-08-2023 14:46-0400 Body height 167.64 cm [facility] Work Phone: 9(530)124-998818 [address] [place] [address] 05-08-2023 14:46-0400 Body mass index (BMI) [Ratio] 45.3 kg/m2 [facility] Work Phone: 4(227)297-399418 [address] [place] [address] 05-08-2023 14:46-0400 Body weight 127.5 kg [facility] Work Phone: 5(670)464-962218 [address] [place] [address] 04-08-2023 06:21-0500 Body temperature 98 [degF] [facility] Work Phone: 6(608)078-600018 [address] [place] [address] 04-08-2023 06:21-0500 Diastolic blood pressure 74 mm[Hg] [facility] Work Phone: 1(994)695-009818 [address] [place] [address] 04-08-2023 06:21-0500 Heart rate 94 /min [facility] Work Phone: 2(223)806-663518 [address] [place] [address] 04-08-2023 06:21-0500 Respiratory rate 18 /min [facility] Work Phone: 3(530)059-295018 [address] [place] [address] 04-08-2023 06:21-0500 SaO2% (BldA) [Mass fraction] 99 % [facility] Work Phone: 9(352)389-610118 [address] [place] [address] 04-08-2023 06:21-0500 Systolic blood pressure 143 mm[Hg] [facility] Work Phone: 3(506)543-720218 [address] [place] [address] 04-07-2023 16:02-0500 Body height 167.64 cm [facility] Work Phone: 8(908)866-698018 [address] [place] [address] 04-07-2023 16:02-0500 Body mass index (BMI) [Ratio] 47.3 kg/m2 [facility] Work Phone: 9(275)345-177018 [address] [place] [address] 04-07-2023 16:02-0500 Body weight 133 kg [facility] Work Phone: 7(551)282-584918 [address] [place] [address] 03-20-2023 08:20-0500 Body mass index (BMI) [Ratio] 47 kg/m2 [facility] Work Phone: 8(041)189-769118 [address] [place] [address] 03-20-2023 08:20-0500 Body temperature 98.6 [degF] [facility] Work Phone: 4(623)493-189418 [address] [place] [address] 03-20-2023 08:20-0500 Body weight 131.99 kg [facility] Work Phone: 8(985)785-009518 [address] [place] [address] 03-20-2023 08:20-0500 Diastolic blood pressure 76 mm[Hg] [facility] Work Phone: 3(858)203-571318 [address] [place] [address] 03-20-2023 08:20-0500 Heart rate 80 /min Center Work Phone: 7(535)205-112518 [address] [place] [address] 03-20-2023 08:20-0500 Respiratory rate 18 /min [facility] Work Phone: 2(288)931-635318 [address] [place] [address] 03-20-2023 08:20-0500 SaO2% (BldA) [Mass fraction] 97 % [facility] Work Phone: 0(002)730-028618 [address] [place] [address] 03-20-2023 08:20-0500 Systolic blood pressure 112 mm[Hg] [facility] Work Phone: 7(427)891-234718 [address] [place] [address] 12-20-2022 11:29-0400 Body temperature 98.1 [degF] [facility] Work Phone: 3(316)581-853518 [address] [place] [address] 12-20-2022 11:29-0400 Diastolic blood pressure 83 mm[Hg] [facility] Work Phone: 0(681)086-676418 [address] [place] [address] 12-20-2022 11:29-0400 Heart rate 85 /min [facility] Work Phone: 2(518)739-926018 [address] [place] [address] 12-20-2022 11:29-0400 Respiratory rate 12 /min [facility] Work Phone: 7(994)546-151618 [address] [place] [address] 12-20-2022 11:29-0400 SaO2% (BldA) [Mass fraction] 100 % [facility] Work Phone: 6(139)847-326918 [address] [place] [address] 12-20-2022 11:29-0400 Systolic blood pressure 129 mm[Hg] [facility] Work Phone: 0(283)502-894618 [address] [place] [address] 12-18-2022 19:24-0400 Body height 167.64 cm Center Work Phone: 2(311)179-362218 [address] [place] [address] 12-18-2022 19:24-0400 Body mass index (BMI) [Ratio] 45.9 kg/m2 [facility] Work Phone: 3(395)592-083618 [address] [place] [address] 12-18-2022 19:24-0400 Body weight 129.1 kg [facility] Work Phone: 6(928)271-930818 [address] [place] [address] 12-18-2022 17:03-0400 Body mass index (BMI) [Ratio] 47.5 kg/m2 [facility] Work Phone: 4(255)106-676318 [address] [place] [address] 12-18-2022 17:03-0400 Body weight 133.4 kg [facility] Work Phone: 2(200)163-425118 [address] [place] [address] 12-18-2022 17:02-0400 Diastolic blood pressure 89 mm[Hg] [facility] Work Phone: 1(556)349-803818 [address] [place] [address] 12-18-2022 17:02-0400 Heart rate 93 /min [facility] Work Phone: 2(839)739-328018 [address] [place] [address] 12-18-2022 17:02-0400 Respiratory rate 17 /min [facility] Work Phone: 6(579)737-405518 [address] [place] [address] 12-18-2022 17:02-0400 SaO2% (BldA) [Mass fraction] 99 % [facility] Work Phone: 5(825)061-818718 [address] [place] [address] 12-18-2022 17:02-0400 Systolic blood pressure 130 mm[Hg] [facility] Work Phone: 9(527)219-669618 [address] [place] [address] 12-18-2022 12:28-0400 Body height 167.64 cm [facility] Work Phone: 0(980)715-709118 [address] [place] [address] 12-18-2022 12:28-0400 Body temperature 97.1 [degF] [facility] Work Phone: 5(994)185-075718 [address] [place] [address] 12-09-2022 20:10-0400 Body temperature 97.8 [degF] [facility] Work Phone: 8(885)538-209518 [address] [place] [address] 12-09-2022 19:31-0400 Body height 170.18 cm [facility] Work Phone: 7(854)395-808018 [address] [place] [address] 12-09-2022 19:31-0400 Body mass index (BMI) [Ratio] 42.9 kg/m2 [facility] Work Phone: 3(256)303-918618 [address] [place] [address] 12-09-2022 19:31-0400 Body weight 124.28 kg [facility] Work Phone: 0(731)036-841218 [address] [place] [address] 12-09-2022 19:31-0400 Diastolic blood pressure 78 mm[Hg] [facility] Work Phone: 3(438)817-735818 [address] [place] [address] 12-09-2022 19:31-0400 Heart rate 98 /min [facility] Work Phone: 4(471)973-749218 [address] [place] [address] 12-09-2022 19:31-0400 Respiratory rate 15 /min [facility] Work Phone: 2(828)859-656518 [address] [place] [address] 12-09-2022 19:31-0400 SaO2% (BldA) [Mass fraction] 100 % [facility] Work Phone: 4(675)736-043518 [address] [place] [address] 12-09-2022 19:31-0400 Systolic blood pressure 130 mm[Hg] [facility] Work Phone: 7(173)511-605018 [address] [place] [address] 11-23-2022 00:02-0400 Body height 167.64 cm [facility] Work Phone: 3(674)213-872818 [address] [place] [address] 11-23-2022 00:02-0400 Body mass index (BMI) [Ratio] 44.4 kg/m2 [facility] Work Phone: 6(911)899-895418 [address] [place] [address] 11-23-2022 00:02-0400 Body weight 125 kg [facility] Work Phone: 9(098)829-978818 [address] [place] [address] 11-22-2022 22:15-0400 Diastolic blood pressure 65 mm[Hg] [facility] Work Phone: 0(478)767-931118 [address] [place] [address] 11-22-2022 22:15-0400 Heart rate 66 /min [facility] Work Phone: 1(278)183-204518 [address] [place] [address] 11-22-2022 22:15-0400 Respiratory rate 18 /min [facility] Work Phone: 3(197)453-315818 [address] [place] [address] 11-22-2022 22:15-0400 SaO2% (BldA) [Mass fraction] 99 % [facility] Work Phone: 5(191)192-766518 [address] [place] [address] 11-22-2022 22:15-0400 Systolic blood pressure 133 mm[Hg] [facility] Work Phone: 4(455)267-718718 [address] [place] [address] 11-22-2022 20:15-0400 Body temperature 97.7 [degF] [facility] Work Phone: 0(635)272-013818 [address] [place] [address] 10-03-2022 08:43-0400 Body height 168.91 cm [facility] Work Phone: 5(152)921-654018 [address] [place] [address] 10-03-2022 08:33-0400 Body mass index (BMI) [Ratio] 47.2 kg/m2 [facility] Work Phone: 5(956)484-462118 [address] [place] [address] 10-03-2022 08:33-0400 Body weight 134.77 kg [facility] [facility] Work Phone: 4(051)737-184718 [address] [place] [address] 10-03-2022 08:33-0400 Diastolic blood pressure 76 mm[Hg] [facility] Work Phone: 4(704)195-355518 [address] [place] [address] 10-03-2022 08:33-0400 Systolic blood pressure 124 mm[Hg] [facility] Work Phone: 0(273)256-436318 [address] [place] [address] 09-19-2022 14:44-0400 Diastolic blood pressure 70 mm[Hg] [facility] Work Phone: 4(248)104-439218 [address] [place] [address] 09-19-2022 14:44-0400 Heart rate 107 /min [facility] Work Phone: 0(559)658-934818 [address] [place] [address] 09-19-2022 14:44-0400 Respiratory rate 18 /min [facility] Work Phone: 4(326)865-205918 [address] [place] [address] 09-19-2022 14:44-0400 SaO2% (BldA) [Mass fraction] 98 % [facility] Work Phone: 2(202)361-527318 [address] [place] [address] 09-19-2022 14:44-0400 Systolic blood pressure 142 mm[Hg] [facility] Work Phone: 7(303)340-226318 [address] [place] [address] 09-19-2022 13:10-0400 Body mass index (BMI) [Ratio] 47.3 kg/m2 [facility] Work Phone: 2(666)757-193918 [address] [place] [address] 09-19-2022 13:10-0400 Body weight 135.17 kg [facility] Work Phone: 2(482)896-707618 [address] [place] [address] 08-15-2022 22:13-0400 Diastolic blood pressure 76 mm[Hg] [facility] Work Phone: 5(664)589-407218 [address] [place] [address] 08-15-2022 22:13-0400 Heart rate 80 /min [facility] Work Phone: 1(974)737-025218 [address] [place] [address] 08-15-2022 22:13-0400 Respiratory rate 18 /min [facility] Work Phone: 8(759)414-515418 [address] [place] [address] 08-15-2022 22:13-0400 Systolic blood pressure 128 mm[Hg] [facility] Work Phone: 1(613)360-459418 [address] [place] [address] 08-15-2022 19:01-0400 Body height 170.18 cm [facility] Work Phone: 6(423)901-146818 [address] [place] [address] 08-15-2022 19:01-0400 Body mass index (BMI) [Ratio] 46.5 kg/m2 [facility] Work Phone: 2(896)506-309518 [address] [place] [address] 08-15-2022 19:01-0400 Body temperature 98.2 [degF] [facility] Work Phone: 1(134)879-519018 [address] [place] [address] 08-15-2022 19:01-0400 Body weight 134.76 kg [facility] Work Phone: 8(775)761-218818 [address] [place] [address] 08-15-2022 19:01-0400 SaO2% (BldA) [Mass fraction] 100 % [facility] Work Phone: 3(944)895-951518 [address] [place] [address] 08-08-2022 15:25-0400 Body temperature 98 [degF] [facility] Work Phone: 9(178)705-204918 [address] [place] [address] 08-08-2022 15:25-0400 Diastolic blood pressure 67 mm[Hg] [facility] Work Phone: 1(376)312-200718 [address] [place] [address] 08-08-2022 15:25-0400 Heart rate 83 /min [facility] Work Phone: 1(513)512-152218 [address] [place] [address] 08-08-2022 15:25-0400 Respiratory rate 16 /min [facility] Work Phone: 2(263)160-951318 [address] [place] [address] 08-08-2022 15:25-0400 SaO2% (BldA) [Mass fraction] 100 % [facility] Work Phone: 6(283)306-668318 [address] [place] [address] 08-08-2022 15:25-0400 Systolic blood pressure 118 mm[Hg] [facility] Work Phone: 4(576)897-926218 [address] [place] [address] 08-08-2022 12:47-0400 Body height 170.18 cm [facility] Work Phone: 4(701)978-386918 [address] [place] [address] 08-08-2022 12:47-0400 Body mass index (BMI) [Ratio] 46.4 kg/m2 [facility] Work Phone: 3(661)850-687518 [address] [place] [address] 08-08-2022 12:47-0400 Body weight 134.5 kg Center Work Phone: 7(879)992-487418 [address] [place] [address] 02-28-2022 09:11-0500 Body height 170.18 cm Center Work Phone: 8(822)926-465918 [address] [place] [address] 02-28-2022 08:59-0500 Body mass index (BMI) [Ratio] 45.6 kg/m2 [facility] Work Phone: 9(162)410-212318 [address] [place] [address] 02-28-2022 08:59-0500 Body weight 132.16 kg Center Work Phone: 5(688)185-807718 [address] [place] [address] 02-28-2022 08:59-0500 Diastolic blood pressure 72 mm[Hg] [facility] Work Phone: 1(409)413-024718 [address] [place] [address] 02-28-2022 08:59-0500 Systolic blood pressure 120 mm[Hg] [facility] Work Phone: 8(689)696-080418 [address] [place] [address] 01-24-2022 23:05-0500 Diastolic blood pressure 68 mm[Hg] [facility] Work Phone: 2(334)633-223318 [address] [place] [address] 01-24-2022 23:05-0500 Heart rate 84 /min [facility] Work Phone: 2(832)171-113318 [address] [place] [address] 01-24-2022 23:05-0500 Respiratory rate 17 /min [facility] Work Phone: 3(809)297-474218 [address] [place] [address] 01-24-2022 23:05-0500 SaO2% (BldA) [Mass fraction] 95 % [facility] Work Phone: 6(475)820-644318 [address] [place] [address] 01-24-2022 23:05-0500 Systolic blood pressure 117 mm[Hg] Center Work Phone: 1(446)710-088118 [address] [place] [address] 01-24-2022 16:45-0500 Body height 170.18 cm [facility] Work Phone: 2(617)519-318518 [address] [place] [address] Work Phone: 01-24-2022 16:45-0500 Body mass index (BMI) [Ratio] 45.6 kg/m2 [facility] Work Phone: 5(103)489-530218 [address] [place] [address] 01-24-2022 16:45-0500 Body temperature 99 [degF] [facility] Work Phone: 1(499)585-698418 [address] [place] [address] 01-24-2022 16:45-0500 Body weight 131.99 kg [facility] Work Phone: 0(069)187-596018 [address] [place] [address] 01-15-2022 15:27-0500 Diastolic blood pressure 80 mm[Hg] [facility] Work Phone: 9(721)474-081218 [address] [place] [address] 01-15-2022 15:27-0500 Heart rate 100 /min [facility] Work Phone: 5(151)026-280218 [address] [place] [address] 01-15-2022 15:27-0500 Respiratory rate 17 /min [facility] Work Phone: 9(513)243-832618 [address] [place] [address] 01-15-2022 15:27-0500 SaO2% (BldA) [Mass fraction] 97 % [facility] Work Phone: 7(063)560-571218 [address] [place] [address] 01-15-2022 15:27-0500 Systolic blood pressure 124 mm[Hg] [facility] Work Phone: 3(793)013-348318 [address] [place] [address] 01-15-2022 12:14-0500 Body mass index (BMI) [Ratio] 45.4 kg/m2 [facility] Work Phone: 2(213)539-013218 [address] [place] [address] 01-15-2022 12:14-0500 Body temperature 98.2 [degF] [facility] Work Phone: 6(923)605-393218 [address] [place] [address] 01-15-2022 12:14-0500 Body weight 131.54 kg [facility] Work Phone: 0(502)246-679518 [address] [address] 12-12-2021 16:21-0400 Body temperature 99 [degF] Lincoln Balderas MD Work Phone: [facility] 12-12-2021 16:21-0400 Body weight 130.64 kg Lincoln Balderas MD Work Phone: [facility] 12-12-2021 16:21-0400 Diastolic blood pressure 78 mm[Hg] Lincoln Balderas MD Work Phone: [facility] 12-12-2021 16:21-0400 Heart rate 120 /min Lincoln Balderas MD Work Phone: [facility] 12-12-2021 16:21-0400 Respiratory rate 18 /min Lincoln Balderas MD Work Phone: [facility] 12-12-2021 16:21-0400 SaO2% (BldA) [Mass fraction] 99 % Lincoln Balderas MD Work Phone: [facility] 12-12-2021 16:21-0400 Systolic blood pressure 118 mm[Hg] Lincoln Balderas MD Work Phone: [facility] 09-28-2021 09:12-0400 Body height 170.18 cm [facility] Work Phone: [facility] Work Phone: 09-28-2021 09:11-0400 Body mass index (BMI) [Ratio] 43.8 kg/m2 [facility] Work Phone: [facility] Work Phone: 09-28-2021 09:11-0400 Body weight 127 kg [facility] Work Phone: [facility] Work Phone: 09-28-2021 09:11-0400 Diastolic blood pressure 80 mm[Hg] [facility] Work Phone: [facility] Work Phone: 09-28-2021 09:11-0400 Systolic blood pressure 110 mm[Hg] [facility] Work Phone: [facility] Work Phone: 09-10-2021 12:35-0400 Diastolic blood pressure 75 mm[Hg] [facility] Work Phone: [facility] Work Phone: 09-10-2021 12:35-0400 Heart rate 82 /min [facility] Work Phone: [facility] Work Phone: 09-10-2021 12:35-0400 Respiratory rate 15 /min [facility] Work Phone: [facility] Work Phone: 09-10-2021 12:35-0400 SaO2% (BldA) [Mass fraction] 98 % [facility] Work Phone: [facility] Work Phone: 09-10-2021 12:35-0400 Systolic blood pressure 146 mm[Hg] [facility] Work Phone: [facility] Work Phone: 09-10-2021 09:41-0400 Body temperature 98.9 [degF] [facility] Work Phone: [facility] Work Phone: 09-10-2021 02:42-0400 Body height 170.18 cm [facility] Work Phone: [facility] Work Phone: 09-10-2021 02:42-0400 Body mass index (BMI) [Ratio] 42.9 kg/m2 [facility] Work Phone: [facility] Work Phone: 09-10-2021 02:42-0400 Body weight 124.31 kg [facility] Work Phone: [facility] Work Phone: 09-03-2021 10:52-0400 Body height 170.18 cm [facility] Work Phone: [facility] Work Phone: 09-03-2021 10:52-0400 Body mass index (BMI) [Ratio] 42.3 kg/m2 [facility] Work Phone: [facility] Work Phone: 09-03-2021 10:52-0400 Body temperature 97.9 [degF] [facility] Work Phone: [facility] Work Phone: 09-03-2021 10:52-0400 Body weight 122.46 kg [facility] Work Phone: [facility] Work Phone: 09-03-2021 10:52-0400 Diastolic blood pressure 80 mm[Hg] [facility] Work Phone: [facility] Work Phone: 09-03-2021 10:52-0400 Heart rate 73 /min [facility] Work Phone: [facility] Work Phone: 09-03-2021 10:52-0400 Respiratory rate 16 /min [facility] Work Phone: [facility] Work Phone: 09-03-2021 10:52-0400 SaO2% (BldA) [Mass fraction] 97 % [facility] Work Phone: [facility] Work Phone: 09-03-2021 10:52-0400 Systolic blood pressure 116 mm[Hg] [facility] Work Phone: [facility] Work Phone: 08-29-2021 22:32-0400 Diastolic blood pressure 74 mm[Hg] [facility] Work Phone: [facility] Work Phone: 08-29-2021 22:32-0400 Heart rate 102 /min [facility] Work Phone: [facility] Work Phone: 08-29-2021 22:32-0400 Respiratory rate 15 /min [facility] Work Phone: [facility] Work Phone: 08-29-2021 22:32-0400 SaO2% (BldA) [Mass fraction] 99 % [facility] Work Phone: [facility] Work Phone: 08-29-2021 22:32-0400 Systolic blood pressure 135 mm[Hg] [facility] Work Phone: [facility] Work Phone: 08-29-2021 18:19-0400 Body height 170.18 cm [facility] Work Phone: [facility] Work Phone: 08-29-2021 18:19-0400 Body mass index (BMI) [Ratio] 44.9 kg/m2 [facility] Work Phone: [facility] Work Phone: 08-29-2021 18:19-0400 Body temperature 98.3 [degF] [facility] Work Phone: [facility] Work Phone: 08-29-2021 18:19-0400 Body weight 130.18 kg [facility] Work Phone: [facility] Work Phone: 08-16-2021 19:45-0400 Body height 170.18 cm [facility] Work Phone: [facility] Work Phone: 08-16-2021 19:45-0400 Body mass index (BMI) [Ratio] 44.6 kg/m2 [facility] Work Phone: [facility] Work Phone: 08-16-2021 19:45-0400 Body temperature 98 [degF] [facility] Work Phone: [facility] Work Phone: 08-16-2021 19:45-0400 Body weight 129.3 kg [facility] Work Phone: [facility] Work Phone: 08-16-2021 19:45-0400 Diastolic blood pressure 86 mm[Hg] [facility] Work Phone: [facility] Work Phone: 08-16-2021 19:45-0400 Heart rate 98 /min [facility] Work Phone: [facility] Work Phone: 08-16-2021 19:45-0400 Respiratory rate 14 /min [facility] Work Phone: [facility] Work Phone: 08-16-2021 19:45-0400 SaO2% (BldA) [Mass fraction] 95 % [facility] Work Phone: [facility] Work Phone: 08-16-2021 19:45-0400 Systolic blood pressure 178 mm[Hg] [facility] Work Phone: [facility] Work Phone: 08-08-2021 08:10-0400 Body mass index (BMI) [Ratio] 44.5 kg/m2 [facility] Work Phone: [facility] Work Phone: 08-08-2021 08:10-0400 Body weight 129.04 kg [facility] Work Phone: [facility] Work Phone: 08-08-2021 08:10-0400 Diastolic blood pressure 86 mm[Hg] [facility] Work Phone: [facility] Work Phone: 08-08-2021 08:10-0400 Systolic blood pressure 138 mm[Hg] [facility] Work Phone: [facility] Work Phone: 12-14-2020 20:47-0400 Heart rate 76 /min ERNESTO BURK [facility] 12-14-2020 20:47-0400 Respiratory rate 18 /min ERNESTO MILEST DO [facility] 12-14-2020 18:35-0400 Body temperature 98.42 [degF] ERNESTO BURK DO [facility] 12-14-2020 18:35-0400 Body weight 118.2 kg ERNESTO BURK DO [facility] 12-14-2020 18:35-0400 Diastolic blood pressure 84 mm[Hg] ERNESTO BURK DO [facility] 12-14-2020 18:35-0400 Heart rate 78 /min ERNESTO BURK DO [facility] 12-14-2020 18:35-0400 Respiratory rate 18 /min ERNESTO BURK DO [facility] 12-14-2020 18:35-0400 Systolic blood pressure 139 mm[Hg] ERNESTO BURK DO [facility] Encounters Encounter Date Encounter Type Care Provider Facility Start: 12-22-2024 End: 12-22-2024 ambulatory [facility] Facility:[facility] Start: 12-09-2024 End: 12-09-2024 Zeus Miller 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 -Laboratory Specimen Work Phone: Start: 12-09-2024 End: 12-09-2024 Patient encounter status Zeus Miller NP-C [facility] Start: 12-09-2024 End: 12-09-2024 Zeus Miller 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C -[facility] Work Phone: Start: 12-09-2024 End: 12-09-2024 ambulatory Zeus Miller 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 [facility] Start: 12-09-2024 End: 12-09-2024 ambulatory Zeus Miller 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 Facility:[facility] Start: 11-28-2024 End: 11-28-2024 Shawanda Ramires 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C -Laboratory Work Phone: Start: 11-28-2024 End: 11-28-2024 ambulatory Zebulun Beam 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 Work Phone: -[facility] Start: 11-28-2024 End: 11-28-2024 ambulatory Shawanda Ramires 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 Facility:[facility] Start: 11-25-2024 End: 11-25-2024 ambulatory PERIS BERA Facility:[facility] Start: 11-20-2024 End: 11-20-2024 Zebulun Beam 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 -Laboratory Work Phone: Start: 11-20-2024 End: 11-20-2024 ambulatory Zebulun Beam [facility] Facility:[facility] Start: 11-18-2024 End: 11-18-2024 Zebulun Beam 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 Work Phone: -Emergency Department Work Phone: Start: 11-18-2024 End: 11-18-2024 Emergency department patient visit Zebulun Beam 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 Work Phone: -Emergency Department Start: 11-14-2024 End: 11-14-2024 ambulatory Zebulun Beam 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 Work Phone: -Laboratory Start: 11-14-2024 End: 11-14-2024 Shawanda Ramires 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 -Laboratory Work Phone: Start: 11-14-2024 End: 11-14-2024 ambulatory Shawanda Ramires NP Facility:[facility] Start: 11-12-2024 Encounter for other preprocedural examination Andreas Oliva [facility] Start: 11-06-2024 ambulatory Yessica carvalho PA Facility[place] Start: 11-06-2024 Dr. Garrick Mcgowan MD -[facility] Start: 10-28-2024 End: 10-28-2024 ambulatory Zebulun Beam 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 Work Phone: -Cardiovascular Services Start: 10-28-2024 End: 10-28-2024 Yessica Guthrie PA -Cardiovascular Services Work Phone: Start: 10-27-2024 Non-patient / Non-visit [facility] DO -[facility] Start: 10-27-2024 End: 10-27-2024 Admission to same day surgery center [facility] DO -Endoscopy Work Phone: Start: 10-27-2024 End: 10-27-2024 Dr. Garrick Mcgowan MD -[facility] Start: 10-27-2024 End: 10-28-2024 ambulatory Naina Da Silva 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 Work Phone: -Endoscopy Start: 10-16-2024 End: 10-16-2024 Patient encounter procedure Jey Johnson MD Work Phone: Endocrinology Comment on above: PCOS (polycystic ova sivakmuar syndrome) (Primary Dx); Class 3 severe obesity without serious comorbidity with body mass index (BMI) of 45.0 to 49.9 in adult, unspecified obesity type (HCC) Start: 10-16-2024 End: 10-16-2024 ambulatory JEY JOHNSON Facility:[facility] Start: 10-15-2024 End: 10-15-2024 [facility] Laura Carson PhD Work Phone: Endocrinology Comment on above: Binge eating disorde r, moderate (Primary Dx); Bipolar affective disorder, currently depressed, mild (HCC); Generalized anxiety disorder Start: 10-02-2024 End: 10-02-2024 Telemedicine consultation with patient Maria Elena Savage [employer] Work Phone: Endocrinology Start: 10-02-2024 End: 10-02-2024 ambulatory Maria Elena Savage [employer] Work Phone: Endocrinology Comment on above: PCOS (polycystic ova sivakumar syndrome) (Primary Dx) Start: 09-27-2024 End: 09-27-2024 Dr. Mazin Wilkinson MD -Emergency Departmen t Work Phone: Start: 09-27-2024 End: 09-27-2024 Emergency department patient visit Karuna Carina 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 Work Phone: -Emergency Department Work Phone: Start: 09-25-2024 End: 09-25-2024 Patient encounter procedure Andreas Oliva DO -[facility] Work Phone: Start: 09-25-2024 End: 09-25-2024 Andreas lOiva DO -[facility] Work Phone: Start: 09-25-2024 End: 09-25-2024 ambulatory Naina Da Silva 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 Work Phone: -[facility] Start: 09-21-2024 End: 09-21-2024 Dr. Rodolfo Das MD -Emergency [facility] Work Phone: Start: 09-21-2024 End: 09-21-2024 Emergency department patient visit Naina Da Silva 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 Work Phone: -Emergency Department Work Phone: Start: 09-19-2024 End: 09-22-2024 Refill Jey Johnson MD Work Phone: Endocrinology Comment on above: Refill Request Start: 09-18-2024 End: 09-18-2024 Telephone encounter Arsenio VAZQUEZW Endocrinology Start: 09-04-2024 End: 09-04-2024 Naina Da Silva 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 Work Phone: -Emergency Department Work Phone: Start: 09-04-2024 End: 09-04-2024 Emergency department patient visit Naina Da Silva 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 Work Phone: -Emergency Department Start: 09-02-2024 End: 09-02-2024 ambulatory Naina Da Sivla 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 Work Phone: -Laboratory Daniel Tierney Start: 09-02-2024 End: 09-02-2024 Patient encounter procedure [facility] Naina Da Silva 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 -Laboratory Daniel Tierney Start: 09-02-2024 End: 09-02-2024 [facility] Naina CROWDERC -Laboratory Daniel Tierney Start: 09-02-2024 End: 09-02-2024 ambulatory Naina Da Silva [facility] Facility:[facility] Start: 08-28-2024 End: 08-28-2024 Telephone encounter Arsenio VAZQUEZW Endocrinology Comment on above: Ambulatory [facility] Start: 08-26-2024 End: 08-26-2024 ambulatory Maria Elena Savage [employer] Work Phone: Endocrinology Start: 08-07-2024 End: 08-07-2024 ambulatory Naina Da Silva 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 Work Phone: [facility] Work Phone: Start: 08-07-2024 End: 08-07-2024 Patient encounter procedure Andreas Hazel DO -[facility] Work Phone: Start: 08-07-2024 End: 08-07-2024 Andreas Friend DO -[facility] Work Phone: Start: 08-07-2024 End: 08-07-2024 ambulatory Andreas Hazel Facility:[facility] Start: 08-01-2024 End: 08-01-2024 [facility] Laura Carson PhD Work Phone: Endocrinology Comment on above: Obesity, Class III, BMI 40-49.9 (morbid obesity) (HCC) (Primary Dx); Binge eating disorder, moderate; Bipolar affective disorder, currently depressed, mild (HCC); Generalized anxiety disorder Start: 07-24-2024 End: 07-24-2024 Patient encounter procedure Shawanda CROWDERC -[facility] Work Phone: Start: 07-24-2024 End: 07-24-2024 Shawanda BAZAN -[facility] Work Phone: Start: 07-24-2024 End: 07-24-2024 ambulatory Naina Da Silva [employer] Work Phone: [facility] Work Phone: Start: 07-15-2024 End: 07-15-2024 Patient encounter procedure Jey Johnson MD Work Phone: Endocrinology Comment on above: PCOS (polycystic ova sivakumar syndrome) [E28.2] (Primary Dx) Start: 07-15-2024 End: 07-15-2024 ambulatory JEY JOHNSON Facility:[facility] Start: 07-08-2024 End: 07-08-2024 Patient encounter procedure Andreas Oliva -[facility] Work Phone: Start: 07-08-2024 End: 07-08-2024 Andreas Oliva [facility] Work Phone: Start: 07-08-2024 End: 07-08-2024 ambulatory Naina Da Silva [employer] Work Phone: [facility] Work Phone: Start: 06-24-2024 End: 06-27-2024 Refill Jey Johnson MD Work Phone: Endocrinology Comment on above: Refill Request Start: 06-20-2024 Non-patient / Non-visit Dr. Ozzy Greco MD -[facility] Start: 06-20-2024 End: 06-20-2024 ambulatory Naina Da Silva [employer] Work Phone: [facility] Work Phone: Start: 06-20-2024 End: 06-20-2024 Patient encounter procedure Shawanda Ramires [employer] -Cardiovascular Services Work Phone: Start: 06-20-2024 End: 06-20-2024 Dr. Ozzy Greco MD -[facility] Start: 06-20-2024 End: 06-20-2024 ambulatory Shawanda Ramires NP Facility:[facility] Start: 06-10-2024 Patient encounter status Naina Da Silva [employer]-C Work Phone: [facility] Start: 06-10-2024 End: 06-10-2024 Patient encounter procedure Karuna Lim [employer]-C -Akhil, Daniel Tierney Start: 06-10-2024 End: 06-10-2024 Zebulun Beam [employer] WAREHOUSE AGENT-C -Laboratory Daniel Tierney Start: 06-10-2024 End: 06-10-2024 ambulatory Zebulun Beam VSC Facility:[facility] Start: 06-05-2024 Non-patient / Non-visit Dr. Marco Bartlett MD -[facility] Work Phone: Start: 06-05-2024 ambulatory Shawanda Ramires [employer] WAREHOUSE AGENT Facili ty:[facility] Start: 06-05-2024 Registered Referred Shawanda Ramires [employer] WAREHOUSE AGENT -C -Cardiovascular Services Work Phone: Start: 06-05-2024 Dr. Marco Bartlett MD - [facility] Work Phone: Start: 06-03-2024 End: 06-03-2024 Dr. Jaylon Galicia MD -Emergency Departm ent Work Phone: Start: 06-03-2024 End: 06-03-2024 Emergency department patient visit Naina Da Silva [employer]-C Work Phone: -Emergency Department Work Phone: Start: 06-03-2024 End: 06-03-2024 ambulatory Naina Da Silva [employer]-C Work Phone: [facility] Work Phone: Start: 06-03-2024 End: 06-03-2024 Patient encounter procedure Zebulun Beam [employer] W[employer]HOUSE AGENT-C -[facility] Work Phone: Start: 06-03-2024 End: 06-03-2024 Zebulun Beam [employer] WAREHOUSE AGENT-C -[facility] Work Phone: Start: 06-02-2024 End: 06-02-2024 ED PHYSICIAN PROVIDER -Emergency Departm ent Work Phone: Start: 06-02-2024 End: 06-02-2024 Emergency department patient visit Naina Da Silva [employer]-C Work Phone: -Emergency Department Work Phone: Start: 06-02-2024 End: 06-03-2024 [facility] Laura Carson PhD Work Phone: Endocrinology Comment on above: Bipolar affective di sorder, currently depressed, mild (HCC) (Primary Dx); Obesity, Class III, BMI 40-49.9 (morbid obesity) (HCC); Binge eating disorder, moderate; Generalized anxiety disorder Start: 05-29-2024 End: 05-29-2024 Patient encounter procedure Shawanda Ramires [employer] WAREHOUSE AGENT-C -[facility] Work Phone: Start: 05-29-2024 End: 05-29-2024 Shawanda Ramires [employer]BAC[employer] WAREHOUSE AGENT-C -[facility] Work Phone: Start: 05-29-2024 End: 05-29-2024 ambulatory Naina Da Silva VSC [place] Start: 05-23-2024 End: 05-23-2024 ambulatory Naina Avinash [employer]ENT-C Work Phone: [facility] Work Phone: Start: 05-23-2024 End: 05-23-2024 Patient encounter procedure Karina Guerra [employer] W[employer]HOUSE AGENT-C -Laboratory Work Phone: Start: 05-23-2024 End: 05-23-2024 Karina Guerra [employer] WAREHOUSE AGENT-C -Laboratory Work Phone: Start: 05-23-2024 End: 05-23-2024 ambulatory Karina Guerra [employer] WAREHOUSE AGENT Facility:[facility] Start: 05-16-2024 End: 05-16-2024 [facility] PhD Work Phone: Endocrinology Comment [...] Emergency department patient visit Naina Da Silva [employer] AGENT-C Work Phone: -Emergency Department Work Phone: Start: 05-08-2024 End: 05-08-2024 Dr. Stan Lin DO -Emergency Departmen t Work Phone: Start: 05-08-2024 End: 05-08-2024 Emergency department patient visit Naina Da Silva [employer]-C Work Phone: -Emergency Department Work Phone: Start: 05-07-2024 End: 05-07-2024 ambulatory Naina Da Silva [employer]-C Work Phone: [facility] Work Phone: Start: 05-07-2024 End: 05-07-2024 Patient encounter procedure Karuna 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, Daniel Tierney Start: 05-07-2024 End: 05-07-2024 Zeshayna Beam [employer] WAREHOUSE AGENT-C -Laboratory Daniel Tierney Start: 05-07-2024 End: 05-07-2024 ambulatory [facility]aina [facility] Facility:[facility] Start: 04-22-2024 End: 04-22-2024 ambulatory Naina Da Silva [employer] AGENT-C Work Phone: [facility] Work Phone: Start: 04-22-2024 End: 04-22-2024 Patient encounter procedure Karuna 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, Daniel Tierney Start: 04-22-2024 End: 04-22-2024 [facility] Facility[facility] Start: 04-15-2024 End: 04-15-2024 Follow-up encounter Maru HICKEY Work Phone: [facility] Start: 04-15-2024 End: 04-15-2024 ambulatory JEY SALGUERO Facility:[facility] Start: 04-15-2024 End: 04-15-2024 Patient encounter procedure Jey Johnson MD Work Phone: Endocrinology Comment on above: Obesity, Class III, BMI 40-49.9 (morbid obesity) ([facility]) (Primary Dx); PCOS (polycystic ovarian syndrome) Start: 04-14-2024 End: 04-14-2024 ambulatory [facility] Facility:[facility] Start: 04-14-2024 End: 04-14-2024 Office outpatient visit 15 minutes Lincoln Balderas MD Work Phone: [facility] Comment on above: Influenza-like illne ss (Primary Dx) Start: 02-25-2024 End: 02-25-[address] Work Phone: Endocrinology Comment on above: PCOS (polycystic ova sivakumar syndrome) (Primary Dx); Obesity, Class III, BMI 40-49.9 (morbid obesity) (HCC) Start: 02-25-2024 End: 02-25-2024 Telemedicine consultation with patient Carissa Roxy VELIZ Work Phone: Endocrinology Start: 02-05-2024 End: 02-05-2024 Patient encounter procedure Karuna 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, Daniel Tierney Start: 02-05-2024 End: 02-05-2024 ambulatory Naina [facility] Facility:[facility] Start: 01-25-2024 End: 01-25-2024 Telephone encounter Mallika Mo APRN.[employer] Work Phone: [facility] Comment on above: Results Start: 01-25-2024 End: 01-25-2024 Patient encounter procedure Louis Schmidt APRN.[employer] Work Phone: [facility] Comment on above: Acute otitis media, left (Primary Dx); Acute otitis externa of left ear, unspecified type Start: 01-25-2024 End: 01-25-2024 ambulatory [facility] Facility:[facility] Start: 01-24-2024 End: 01-24-2024 ambulatory [facility] Facility:[facility] Start: 01-24-2024 End: 01-24-2024 Patient encounter procedure Maru HICKEY Work Phone: [facility] Comment on above: Sore throat (Primary Dx); URI, acute Start: 01-14-2024 End: 01-14-[address] Marco Bartlett MD -[facility] Work Phone: Start: 01-14-2024 End: 01-14-2024 ambulatory Naina Da Silva [facility] Facility[facility] Start: 01-08-2024 End: 01-08-2024 ambulatory JEY JOHNSON Facility:[facility] Start: 01-08-2024 End: 01-08-2024 Patient encounter procedure Jey Johnson MD Work Phone: Endocrinology Comment on above: PCOS (polycystic ova sivakumar syndrome) (Primary Dx); Obesity, Class III, BMI 40-49.9 (morbid obesity) ([facility]) Start: 12-31-2023 End: 12-31-2023 Bamboo flowsheet Alisson S Weygandt TOBAC[employer] WAREHOUSE AGENT Work Phone: [facility] Start: 12-31-2023 End: 12-31-2023 Bamboo flowsheet Alisson S Weygandt [employer]BACCO WAREHOUSE AGENT Work Phone: [facility] Start: 12-31-2023 End: 12-31-2023 Office outpatient visit 25 minutes Alisson S Weygandt [employer]BAC[employer] WAREHOUSE AGENT Work Phone: [facility] Comment on above: Morbid obesity with BMI of 45.0-49.9, adult ([facility]) (Primary Dx); Chronic migraine without aura, intractable, without status migrainosus ([facility]) Start: 12-31-2023 End: 12-31-2023 ambulatory ALISSON S WEYGANDT Not Available Start: 12-19-2023 End: 12-19-2023 Telephone encounter Jey Johnson MD Work Phone: Endocrinology Comment on above: Release Of Medical R ecords Start: 12-06-2023 End: 12-17-2023 Refill Alisson S Weygandt [employer] WAREHOUSE AGENT Work Phone: [facility] Comment on above: Chronic migraine wit hout aura, intractable, without status migrainosus (CMS/HCC) Start: 11-27-2023 End: 11-27-2023 Patient encounter procedure Louis Schmidt APRN.[employer] Work Phone: [facility] Comment on above: Pain (Primary Dx) Start: 10-26-2023 End: 10-26-2023 Patient encounter procedure Jey Johnson MD Work Phone: Endocrinology Comment on above: PCOS (polycystic ova sivakumar syndrome) (Primary Dx); Obesity, Class III, BMI 40-49.9 (morbid obesity) (HCC) Start: 09-13-2023 End: 09-13-2023 Patient encounter procedure Lincoln Balderas MD Work Phone: [facility] Comment on above: Impacted cerumen of left ear (Primary Dx) Start: 06-03-2023 End: 06-03-2023 Emergency department patient visit [facility] Work Phone: [facility]-Emergency Department Work Phone: Start: 05-29-2023 End: 05-29-2023 ambulatory [place] Not Available Start: 05-08-2023 End: 05-08-2023 Emergency department patient visit [facility] Work Phone: [facility]-Emergency Department Work Phone: Start: 05-08-2023 End: 05-08-2023 Patient encounter procedure Louis Schmidt APRN.[employer] Work Phone: [facility] Comment on above: Dizziness (Primary D x); Headache, unspecified headache type Start: 04-08-2023 End: 04-14-2023 Evaluation and management of inpatient [facility] Start: 04-07-2023 End: 04-08-2023 Emergency department patient visit [facility] Work Phone: [facility]-Emergency Department Work Phone: Start: 03-20-2023 End: 03-20-2023 Patient encounter procedure [facility] Work Phone: [facility] Work Phone: Start: 02-06-2023 End: 02-06-2023 ambulatory [facility] Work Phone: [facility] Work Phone: Start: 02-06-2023 End: 02-06-2023 Patient encounter procedure [facility] Work Phone: [facility]-Ultrasound, [facility] Work Phone: Start: 01-30-2023 End: 01-30-2023 ambulatory [facility] Work Phone: [facility] Work Phone: Start: 01-30-2023 End: 01-30-2023 Patient encounter procedure [facility] Work Phone: [facility] Work Phone: Start: 01-29-2023 End: 01-29-2023 ambulatory [facility] Work Phone: [facility] Work Phone: Start: 01-29-2023 End: 01-29-2023 Discharged Recurring [facility] Work Phone: [facility]-Physical Therapy Work Phone: Start: 12-20-2022 Non-patient / Non-visit [facility] Work Phone: [facility] Work Phone: Start: 12-19-2022 End: 12-20-2022 Evaluation and management of inpatient [facility] Work Phone: [facility]-Progressive Care Unit Work Phone: Start: 12-19-2022 Non-patient / Non-visit [facility] Work Phone: [facility] Work Phone: Start: 12-19-2022 Non-patient / Non-visit [facility] Work Phone: [facility] Start: 12-18-2022 Non-patient / Non-visit [facility] Work Phone: [facility] Work Phone: Start: 12-18-2022 End: 12-20-2022 Evaluation and management of inpatient [facility] Work Phone: [facility]-Progressive Care Unit Work Phone: Start: 12-18-2022 observation encounter [facility] Work Phone: [facility] Work Phone: Start: 12-12-2022 End: 12-12-2022 ambulatory [facility] Work Phone: [facility] Work Phone: Start: 12-12-2022 End: 12-12-2022 Patient encounter procedure [facility] Work Phone: [facility]-Laboratory Work Phone: Start: 12-09-2022 End: 12-09-2022 Emergency department patient visit [facility] Work Phone: [facility]-Emergency Department Work Phone: Start: 12-04-2022 End: 12-04-2022 Emergency department patient visit VANI CARLSON [employer] Facility:B Start: 11-22-2022 End: 11-23-2022 Emergency department patient visit [facility] Work Phone: [facility]-Emergency Department Work Phone: Start: 11-07-2022 End: 11-07-2022 ambulatory [facility] Work Phone: [facility] Work Phone: Start: 11-07-2022 End: 11-07-2022 Patient encounter procedure [facility] Work Phone: [facility] Work Phone: Start: 10-03-2022 End: 10-03-2022 Patient encounter procedure [facility] Work Phone: [facility]-Laboratory, Specimen Work Phone: Start: 10-03-2022 End: 10-03-2022 Patient encounter procedure [facility] Work Phone: [facility] Work Phone: Start: 09-19-2022 End: 09-19-2022 Patient encounter procedure [facility] Work Phone: [facility] Work Phone: Start: 08-29-2022 End: 08-29-2022 Patient encounter procedure [facility] Work Phone: [facility] Work Phone: Start: 08-15-2022 End: 08-15-2022 Emergency department patient visit [facility] Work Phone: [facility]-Emergency Department Start: 08-08-2022 Non-patient / Non-visit [facility] Work Phone: [facility] Start: 08-08-2022 End: 08-08-2022 Admission to same day surgery center [facility] Work Phone: [facility]-Endoscopy Start: 08-08-2022 End: 08-08-2022 ambulatory [facility] Work Phone: [facility] Work Phone: Start: 06-06-2022 End: 06-06-2022 Patient encounter procedure [facility] Work Phone: [facility] Gastro[facility] Start: 03-15-2022 End: 03-15-2022 ambulatory [facility] Work Phone: [facility] Work Phone: Start: 03-15-2022 End: 03-15-2022 Patient encounter procedure [facility] Work Phone: [facility]-Nuclear Medicine, [facility] Start: 03-07-2022 End: 03-07-2022 ambulatory [facility] Work Phone: [facility] Work Phone: Start: 03-07-2022 End: 03-07-2022 Patient encounter procedure [facility] Work Phone: [facility]-Ultrasound, [facility] Start: 02-28-2022 End: 02-28-2022 Patient encounter procedure [facility] Work Phone: [facility] Start: 02-17-2022 End: 02-17-2022 ambulatory [facility] Work Phone: [facility] Work Phone: Start: 02-17-2022 End: 02-17-2022 Patient encounter procedure [facility] Work Phone: [facility]-Laboratory, Specimen Start: 02-15-2022 End: 02-15-2022 Patient encounter procedure [facility] Work Phone: [facility] Gastroenter[facility] Start: 01-31-2022 End: 01-31-2022 ambulatory [facility] Work Phone: Start: 01-31-2022 End: 01-31-2022 Patient encounter procedure [facility]-Labor[facility] Start: 01-24-2022 End: 01-24-2022 Emergency department patient visit [facility] Work Phone: [facility]-Emergency Department Start: 01-15-2022 End: 01-15-2022 Emergency department patient visit [facility] Work Phone: [facility]-Emergency Department Start: 12-14-2021 End: 12-14-2021 ambulatory [facility] Work Phone: [facility] Work Phone: Start: 12-14-2021 End: 12-14-2021 Patient encounter procedure [facility] Work Phone: [facility] Start: 12-12-2021 End: 12-12-2021 Patient encounter procedure Lincoln Balderas MD Work Phone: [facility] Comment on above: Dental infection (Pr imary Dx) Start: 11-30-2021 End: 11-30-2021 Patient encounter procedure [facility] Work Phone: [facility] Start: 09-28-2021 End: 09-28-2021 Patient encounter procedure [facility] Work Phone: [facility] Start: 09-27-2021 End: 09-27-2021 Patient encounter procedure [facility] Work Phone: [facility]-Laboratory Start: 09-10-2021 End: 09-10-2021 Emergency department patient visit [facility] Work Phone: [facility]-Emergency Department Start: 09-03-2021 End: 09-03-2021 Emergency department patient visit [facility] Work Phone: [facility]-Emergency Department Start: 09-03-2021 End: 09-03-2021 Patient encounter procedure Lincoln Balderas MD Work Phone: [facility] Comment on above: Nausea and vomiting, unspecified vomiting type (Primary Dx); Dizziness Start: 08-31-2021 End: 08-31-2021 Patient encounter procedure [facility] Work Phone: [facility]-Laboratory Start: 08-29-2021 End: 08-29-2021 Emergency department patient visit [facility] Work Phone: [facility]-Emergency Department Start: 08-24-2021 End: 08-24-2021 Patient encounter procedure [facility] Work Phone: [facility]-Laboratory Start: 08-16-2021 End: 08-16-2021 Emergency department patient visit [facility] Work Phone: [facility]-Emergency Department Start: 08-08-2021 End: 08-08-2021 Patient encounter procedure [facility] Work Phone: [facility] Start: 06-27-2021 End: 06-27-2021 Patient encounter procedure [facility]-Laboratory Start: 12-14-2020 End: 12-14-2020 Emergency department patient visit ERNESTO BURK DO [facility] Start: 01-07-2020 End: 01-07-2020 Subsequent hospital visit by physician [facility] Work Phone: Radiology Comment on above: Foot pain, left [[id number]] Start: 01-31-2017 End: 01-31-2017 Ambulatory SOMMER LECHUGA [facility] Start: 11-24-2016 Ambulatory Mohan Pacheco [facility] Start: 09-18-2016 End: 09-19-2016 Ambulatory DELMI GOYO [facility] Procedures Date Procedure Procedure Detail Performing Clinician Start: 12-09-2024 Urine culture Zebulun Beam [employer]-C Work Phone: Start: 11-28-2024 [place] measurement Zebulun Beam [employer] AGENT-C Work Phone: Start: 11-28-2024 Mean corpuscular hemoglobin concentration determination Zebulun Beam [employer] W[employer] AGENT-C Work Phone: Start: 11-28-2024 Neutrophil count Zebulun Beam [employer] W[employer] AGENT-C Work Phone: Start: 11-28-2024 Nucleated red blood cell count procedure Zebulun Beam [employer] AGENT-C Work Phone: Start: 11-28-2024 Platelet mean volume determination Zebul un Beam [employer] AGENT-C Work Phone: Start: 11-20-2024 Mean corpuscular hemoglobin concentration determination Zebulun Beam [employer] W[employer]HOUSE AGENT-C Work Phone: Start: 11-20-2024 Neutrophil count Zebulun Beam [employer] W[employer]HOU[employer] AGENT-C Work Phone: Start: 11-20-2024 Nucleated red blood cell count procedure Zebulun Beam [employer] AGENT-C Work Phone: Start: 11-20-2024 Platelet mean volume determination Zebul un Beam [employer] AGENT-C Work Phone: Start: 11-20-2024 Vitamin D, 25-hydroxy measurement Zebulu n Beam [employer]ENT-C Work Phone: Start: 11-18-2024 Blood count smear mcrscp w/mnl difrntl wbc count Zebulun Beam [employer] AGENT-C Work Phone: Start: 11-18-2024 Estimated creatinine clearance Zebulun B eam [employer]ENT-C Work Phone: Start: 11-18-2024 [place] measurement Zebulun Beam [employer] W[employer]HOUSE AGENT-C Work Phone: Start: 11-18-2024 Mean corpuscular hemoglobin concentration determination Zebulun Beam [employer] W[employer]HOUSE AGENT-C Work Phone: Start: 11-18-2024 Neutrophil count Zebulun Beam [employer] W[employer]HOU[employer] AGENT-C Work Phone: Start: 11-18-2024 Nucleated red blood cell count procedure Zebulun Beam [employer] W[employer]HOUSE AGENT-C Work Phone: Start: 11-18-2024 Platelet mean volume determination Zebul un Beam [employer] W[employer]HOUSE AGENT-C Work Phone: Start: 10-27-2024 Rigo Da Silva [employer] WAREHOUSE AGENT-C Work Phone: Start: 2024 Blood count smear mcrscp w/mnl difrntl wbc count Zebulun Beam [employer] W[employer]HOU[employer] AGENT-C Work Phone: Start: 2024 Mean corpuscular hemoglobin concentration determination Zebulun Beam [employer] W[employer]HOUSE AGENT-C Work Phone: Start: 2024 Neutrophil count Zebulun Beam [employer] W[employer]HOUSE AGENT-C Work Phone: Start: 2024 Nucleated red blood cell count procedure Zebulun Beam [employer] AGENT-C Work Phone: Start: 2024 Platelet mean volume determination Zebul un Beam [employer] W[employer]HOU[employer] AGENT-C Work Phone: Start: 09-27-2024 Benzodiazepine measurement, urine Zebulu n Beam [employer]-C Work Phone: Start: 09-27-2024 Cocaine measurement, urine Zebulun Beam [employer] AGENT-C Work Phone: Start: 09-27-2024 Methadone measurement, urine Zebulun Rachel m [employer]HOU[employer] AGENT-C Work Phone: Start: 09-27-2024 Urine cannabinoid measurement Zebulun Be am [employer]SE AGENT-C Work Phone: Start: 09-27-2024 Urine opiate measurement Zebulun Beam [employer] W[employer]HOUSE AGENT -C Work Phone: Start: 09-27-2024 Blood count smear mcrscp w/mnl difrntl wbc count Zebulun Beam [employer] W[employer]HOUSE AGENT-C Work Phone: Start: 09-27-2024 Estimated creatinine clearance Zebulun B eam [employer] AGENT-C Work Phone: Start: 09-27-2024 Mean corpuscular hemoglobin concentration determination Zebulun Beam [employer] W[employer]HOU[employer] AGENT-C Work Phone: Start: 09-27-2024 Neutrophil count Zebulun Beam [employer] W[employer] AG[employer]-C Work Phone: Start: 09-27-2024 Nucleated red blood cell count procedure Zebulun Beam [employer] W[employer]HOU[employer] AGENT-C Work Phone: Start: 09-27-2024 Platelet mean volume determination Zebul un Beam [employer] W[employer]HOUSE AGENT-C Work Phone: Start: 09-21-2024 Blood count smear mcrscp w/mnl difrntl wbc count Zebulun Beam [employer] W[employer]HOU[employer]-C Work Phone: Start: 09-21-2024 Estimated creatinine clearance Naina santanain [employer]-C Work Phone: Start: 09-21-2024 Mean corpuscular hemoglobin concentration determination Zebulun Beam [employer] AG[employer]-C Work Phone: Start: 09-21-2024 Neutrophil count Zebulun Beam [employer]-C Work Phone: Start: 09-21-2024 Nucleated red blood cell count procedure Zebulun Beam [employer]-C Work Phone: Start: 09-21-2024 Platelet mean volume determination Zebul un Beam [employer]-C Work Phone: Start: 09-21-2024 Clostridium difficile detection Naina Da Silva [employer]-C Work Phone: Start: 09-04-2024 CT of head without contrast Naina Cope brightjessica [employer]-C Work Phone: Start: 09-04-2024 Blood count smear mcrscp w/mnl difrntl wbc count Naina Da Silva [employer] Work Phone: Start: 09-04-2024 Estimated creatinine clearance Naina Haque estherjessica [employer] Work Phone: Start: 09-04-2024 [place] measurement Naina Da Silva [employer]HOU[employer]-C Work Phone: Start: 09-04-2024 Mean corpuscular hemoglobin concentration determination Naina Da Silva [employer] W[employer]HOU[employer] AGENT-C Work Phone: Start: 09-04-2024 Neutrophil count Vazquezbulun Beam [employer] Work Phone: Start: 09-04-2024 Nucleated red blood cell count procedure Naina Da Silva [employer] Work Phone: Start: 09-04-2024 Platelet mean volume determination Jennifer Da Silva [employer] Work Phone: Start: 09-02-2024 Blood count smear mcrscp w/mnl difrntl wbc count Naina Da Silva [employer] Work Phone: Start: 09-02-2024 Mean corpuscular hemoglobin concentration determination Naina Da Silva [employer] Work Phone: Start: 09-02-2024 Neutrophil count Zebulun Beam [employer] Work Phone: Start: 09-02-2024 Nucleated red blood cell count procedure Naina Da Silva [employer] Work Phone: Start: 09-02-2024 Platelet mean volume determination Jennifer Da Silva [employer] Work Phone: Start: 09-02-2024 Procedure Naina Da Silva [employer] Work Phone: Comment on above: Test Ordered: [id number] Nu[employer] Vaginitis (V G)Test(s) 565622- Atopobium vaginae; [id number]- BVAB 2;534353- Megasphaera 1was developed and its performance characteristicsdetermined by [employer]. It has not been cleared or approvedby the Food and Drug Administration.Test(s) 723248-Byvmamm albicans, DAMARIS; 113273-Ykiuztr glabrata, NAAwas developed and its performance characteristicsdetermined by [employer]. It has not been cleared or approvedby [...] =G Reference Range: NegativePerformed at: =G - [facility] [id number] Director: Idalia Yoo MD, Phone: [phone] at: - [facility] [id number] Director: Neeraj Marte PhD, Phone: [phone] Start: 09-02-2024 Urine microscopy: red cells Naina lozano [employer] Work Phone: Start: 09-02-2024 Urnls dip stick/tablet reagent auto microscopy Naina Da Silva [employer] Work Phone: Start: 09-02-2024 Urine culture Naina Da Silva NP-C Work Phone: Start: 08-07-2024 MRI of abdomen with contrast Naina Farias ryan [employer] Work Phone: Start: 06-10-2024 Blood count smear mcrscp w/mnl difrntl wbc count Naina Da Silva [employer] Work Phone: Start: 06-10-2024 Mean corpuscular hemoglobin concentration determination Naina Da Silva [employer] Work Phone: Start: 06-10-2024 Nucleated red blood cell count procedure Naina Da Silva [employer] Work Phone: Start: 06-10-2024 Platelet mean volume determination Jennifer Da Silva [employer] Work Phone: Start: 06-03-2024 Blood count smear mcrscp w/mnl difrntl wbc count Naina Da Silva [employer] Work Phone: Start: 06-03-2024 Estimated creatinine clearance Naina Haque katerina [employer] Work Phone: Start: 06-03-2024 Mean corpuscular hemoglobin concentration determination Naina Da Silva [employer] Work Phone: Start: 06-03-2024 Nucleated red blood cell count procedure Naina Da Silva [employer] Work Phone: Start: 06-03-2024 Platelet mean volume determination Jennifer Da Silva [employer] Work Phone: Start: 06-03-2024 CT angiography of chest with contrast Naina Da Silva [employer] Work Phone: Start: 06-03-2024 CT angiography of head and neck Naina Da Silva [employer] Work Phone: Start: 06-03-2024 Ultrasonography of abdomen Naina Rustam christy [employer] Work Phone: Start: 05-23-2024 [place] measurement Naina Da Silva [employer] Work Phone: Start: 05-14-2024 Blood count smear mcrscp w/mnl difrntl wbc count Naina Da Silva [employer] Work Phone: Start: 05-14-2024 Estimated creatinine clearance Naina borges [employer] Work Phone: Start: 05-14-2024 Mean corpuscular hemoglobin concentration determination Naina Da Silva [employer] Work Phone: Start: 05-14-2024 Nucleated red blood cell count procedure Naina Da Silva [employer] Work Phone: Start: 05-14-2024 Platelet mean volume determination Jennifer Da Silva [employer] Work Phone: Start: 05-14-2024 Plain chest X-ray Naina Da Silva [employer] Work Phone: Start: 05-08-2024 Computed tomography of abdomen and pelvis with intravenous contrast Naina Da Sivla [employer] Work Phone: Start: 05-08-2024 Blood count smear mcrscp w/mnl difrntl wbc count Naina Da Silva [employer] Work Phone: Start: 05-08-2024 Estimated creatinine clearance Naina borges [employer] Work Phone: Start: 05-08-2024 Mean corpuscular hemoglobin concentration determination Naina Da Silva [employer] Work Phone: Start: 05-08-2024 Nucleated red blood cell count procedure Naina Da Silva [employer] Work Phone: Start: 05-08-2024 Platelet mean volume determination Jennifer Da Silva [employer] Work Phone: Start: 05-08-2024 Triacylglycerol lipase measurement Jennifer Da Silva [employer] Work Phone: Start: 05-08-2024 Urine microscopy: red cells Naina Fariasn marta [employer] Work Phone: Start: 05-08-2024 Urnls dip stick/tablet reagent auto microscopy Naina Da Silva [employer] Work Phone: Start: 05-07-2024 Blood count smear mcrscp w/mnl difrntl wbc count Naina Da Silva [employer] Work Phone: Start: 05-07-2024 Mean corpuscular hemoglobin concentration determination Naina Da Silva [employer] Work Phone: Start: 05-07-2024 Nucleated red blood cell count procedure Naina Da Silva [employer] Work Phone: Start: 05-07-2024 Platelet mean volume determination Jennifer Da Silva [employer] Work Phone: Start: 02-05-2024 Urine culture Naina Da Silva [employer] Work Phone: Start: 01-24-2024 STREP A MOLECULAR (POC) Maru HICKEY Work Phone: Start: 06-03-2023 Plain chest X-ray [facility] Work Phone: Start: 05-08-2023 Plain chest X-ray [facility] Work Phone: Start: 05-08-2023 CT of head without contrast [facility] Work Phone: Start: 05-08-2023 SARS-CoV-2, Influenza & RSV (PCR) [facility] Work Phone: Start: 04-07-2023 Coronavirus COVID-19 PCR [facility] Work Phone: Start: 02-06-2023 Ultrasound elastography of liver [facility] Work Phone: Start: 12-18-2022 Plain chest X-ray [facility] Work Phone: Start: 12-18-2022 CT of head without contrast [facility] Work Phone: Start: 12-09-2022 Urine culture [facility] Work Phone: Start: 11-07-2022 MRI of brain without contrast [facility] Work Phone: Start: 09-19-2022 MRI of small intestine [facility] Work Phone: Start: 08-08-2022 Colonoscopy [facility] Work Phone: Start: 03-15-2022 Radionuclide gastric emptying study [facility] Work Phone: Start: 03-07-2022 Pelvic echography [facility] Work Phone: Start: 03-07-2022 Ultrasonography of abdomen [facility] Work Phone: Start: 03-07-2022 Ultrasound elastography [facility] Work Phone: Start: 01-24-2022 Computed tomography of abdomen and pelvis with intravenous contrast [facility] Work Phone: Start: 01-15-2022 Plain chest X-ray [facility] Work Phone: Start: 12-14-2021 MRI of brain with contrast [facility] Work Phone: Start: 11-30-2021 CT of abdomen [facility] Work Phone: Start: 08-16-2021 Radiography of ankle [facility] Work Phone: Start: 08-16-2021 Radiologic examination of knee [facility] Work Phone: Start: 08-16-2021 X-ray of both feet [facility] Work Phone: Start: 01-07-2020 Radex ankle complete minimum 3 views Clay Tinsley [employer] Work Phone: Cytopathology proced ure, preparation of smear, genital source [facility] Work Phone: Investigation of tra nsfusion reaction [facility] Work Phone: Lactoferrin measurement [facility] Work Phone: Lactoferrin measurement [facility] Work Phone: Ova OR parasites identification Ova OR parasites identification [facility] Work Phone: Spinal arthrodesis ERNESTO CLARK DO Viral antigen assay [facility] Work Phone: Plan of Treatment Date Care Activity Detail Author Start: 07-15-2025 BP Controlled (<130/80) BP Controlled (<130/80) [facility] in Start: 04-20-2025 End: 04-20-2025 Patient encounter procedure 04/20/2025 9:00 AM EST Office Visit Endocrinology [address] [place] [id number] Jey Johnson MD [address] [place] [id number] 6 month f/u-PCOS Endocrinology Comment on above: 6 month f/u-PCOS Start: 01-01-2025 ambulatory Facility:[facility] Start: 12-22-2024 End: 12-22-2024 Follow-up encounter 12/22/2024 10:30 AM EST [facility] Endocrinology [address] [id number] Laura Carson, PhD [address] [phone] follow up Endocrinology Comment on above: follow up Start: 12-09-2024 Urine culture [facility] Start: 12-09-2024 -Laboratory Specimen Work Phone: Start: 12-09-2024 End: 12-09-2024 -[facility] Work Phone: Start: 11-28-2024 Ambulatory ECG [facility] Start: 11-28-2024 End: 11-28-2024 Evaluation of diagnostic study results [facility] Start: 11-25-2024 End: 11-25-2024 Follow-up encounter 11/25/2024 2:00 PM EDT [facility] Endocrinology [address] [place] [address] Maria Elena Savage, Natural Developer [id number] [phone] EX RX Follow up 1 of 3 Endocrinology Comment on above: EX RX Follow up 1 of 3 Start: 11-18-2024 [facility] Start: 11-18-2024 End: 11-18-2024 -Emergency Departmen t Work Phone: Start: 11-14-2024 -Laboratory Work Phone: Start: 10-27-2024 Colonoscopy w/biopsy single/multiple [facility] Start: 10-27-2024 Patient discharge [facility] Start: 10-20-2024 Influenza vaccination [facility] Start: 10-16-2024 End: 10-16-2024 Patient encounter procedure 10/16/2024 10:20 AM EDT Office Visit Endocrinology [address] [place] [address] Jey Johnson MD [address] [place] [address] 3 month f/u-PCOS Endocrinology Comment on above: 3 month f/u-PCOS Start: 10-15-2024 End: 10-15-2024 Follow-up encounter 10/15/2024 1:15 PM EDT [facility] Endocrinology [address] [phone] Laura Carson, PhD [address] [phone] Can you please schedule this patient for a follow up virtual visit on September 26 at 1:30. Endocrinology Comment on above: Can you please schedule this patient for a follow up virtual visit on September 26 at 1:30. Start: 10-02-2024 End: 10-02-2024 ambulatory 10/02/2024 2:00 PM EDT [facility] Endocrinology [address] [place] [address] Maria Elena Savage, Natural Developer [address] [phone] Virtual Exercise Prescription Endocrinology Comment on above: Virtual Exercise Prescription Start: 09-27-2024 [facility] Start: 09-27-2024 [facility] Start: 09-26-2024 End: 09-26-2024 Follow-up encounter Endocrinology Comment on above: Can you please schedule this patient for a follow up virtual visit on September 26 at 1:30. Start: 09-21-2024 [facility] Start: 09-21-2024 End: 09-21-2024 Enteric precautions [facility] Start: 09-21-2024 Clostridioides difficile (PCR) Clostridioides difficile (PCR) [facility] Start: 09-04-2024 [facility] Start: 09-04-2024 [place] measurement [facility] Start: 09-02-2024 Procedure [facility] Start: 09-02-2024 [facility] Start: 09-02-2024 Urine culture [facility] Start: 08-26-2024 End: 08-26-2024 ambulatory 08/26/2024 1:00 PM EDT [facility] Patient Outreach Endocrinology [address] [phone] Maria Elena Savage, Natural Developer [address] [place] [address] Ways to loose weight with other medical issues. Endocrinology Comment on above: Ways to loose weight with other medical issues. Start: 08-01-2024 End: 08-01-2024 Follow-up encounter 08/01/2024 12:15 PM EDT [facility] Endocrinology [address] [phone] Laura Carson, PhD [address] [place] [address] follow up virtual visit on August 01 at 12:15. Endocrinology Comment on above: follow up virtual visit on August 01 at 12:15. Start: 07-15-2024 End: 07-15-2024 Patient encounter procedure 07/15/2024 10:40 AM EDT Office Visit Endocrinology [address] [place], [place] [phone] Jey Johnson MD [address] [place] [address] 3 MTH F/U-PCOS Endocrinology Comment on above: 3 MTH F/U-PCOS Start: 06-27-2024 End: 06-27-2024 Telemedicine consultation with patient 06/27/2024 10:00 AM EDT Telemedicine [facility] [address] [place] [phone] Alisson [place] NP [address] [place] [address] [facility] Start: 06-04-2024 Hemoglobin A1c measurement HbA1C [facility] Start: 06-03-2024 Us abdominal real time w/image limited [facility] Start: 06-03-2024 End: 06-03-2024 [facility] Start: 05-16-2024 End: 05-16-2024 ambulatory 05/16/2024 8:40 AM EDT [facility] Endocrinology [address] [place] [address] Huey Cortes DO, PhD [address] [place] [address] ENDOCRINE WEIGHT Endocrinology Comment on above: ENDOCRINE WEIGHT Start: 05-15-2024 [facility] Start: 05-14-2024 End: 05-14-2024 [facility] Start: 05-08-2024 [facility] Start: 04-15-2024 End: 04-15-2024 Patient encounter procedure Endocrinology Comment on above: 3 month f/u 3 month f/u PCOS, me ds Start: 04-09-2024 Hepatitis B surface antibody level LDL Cholesterol [facility] Start: 01-31-2024 End: 01-31-2024 ambulatory 01/31/2024 9:00 AM EST [facility] Endocrinology [address] [place] [address] Carissa Sherwood, RD [address] [address] PCOS (polycystic ovarian syndrome) [E28.2]; Obesity, Class III, BMI 40-49.9 (morbid obesity) (HCC) [E66.01] Endocrinology Comment on above: PCOS (polycystic ovarian syndrome) [E28. 2]; Obesity, Class III, BMI 40-49.9 (morbid obesity) (HCC) [E66.01] Start: 01-25-2024 End: 04-25-2024 Fasting glucose [Mass/volume] in Serum or Plasma GLUCOSE, FASTING Lab Routine PCOS (polycystic ovarian syndrome) Expected: 01/25/2024, Expires: 04/25/2024 [facility] Comment on above: Expected: 01/25/2024, Expires: 5 Start: 01-08-2024 End: 01-08-2024 Patient encounter procedure 01/08/2024 11:40 AM EST Office Visit Endocrinology [address] [place], [place] [id number] Jey Johnson MD [address] [place] [id number] 2 MTH F/U for irregular cycles, hirsutism . Endocrinology Comment on above: 2 MTH F/U for irregular cycles, hirsutis m . Start: 12-20-2023 End: 12-20-2023 Patient encounter procedure 12/20/2023 10:00 AM EDT Office Visit [facility] [address] [place] [phone] Alisson [place] NP [address] [place], [place] [phone] [facility] Start: 11-16-2023 End: 02-15-2024 17-Hydroxyprogesterone [Mass/volume] in Serum or Plasma HYDROXYPROGESTERONE-17 Lab Routine Obesity, Class III, BMI 40-49.9 (morbid obesity) (HCC) Expected: 11/16/2023, Expires: 02/15/2024 [facility] Work Phone: Comment on above: Expected: 11/16/2023, Expires: Start: 11-16-2023 End: 02-15-2024 BIOAVAIL TESTO/SHBG, FEM & CHILD BIOAVAIL TESTO/SHBG, FEM & CHILD Lab Routine Obesity, Class III, BMI 40-49.9 (morbid obesity) (HCC) Expected: 11/16/2023, Expires: 02/15/2024 [facility] Comment on above: Expected: 11/16/2023, Expires: Start: 11-16-2023 End: 02-15-2024 Corticotropin [Mass/volume] in Plasma ACTH BLD Lab Routine Obesity, Class III, BMI 40-49.9 (morbid obesity) ([facility]) Expected: 11/16/2023, Expires: 02/15/2024 [facility] Comment on above: Expected: 11/16/2023, Expires: Start: 11-16-2023 End: 02-15-2024 Cortisol [Mass/volume] in Serum or Plasma CORTISOL, SERUM Lab Routine Obesity, Class III, BMI 40-49.9 (morbid obesity) ([facility]) Expected: 11/16/2023, Expires: 02/15/2024 [facility] Comment on above: Expected: 11/16/2023, Expires: Start: 11-16-2023 End: 02-15-2024 DHEA-S BLD DHEA-S BLD Lab Routine Obesity, Class III, BMI 40-49.9 (morbid obesity) ([facility]) Expected: 11/16/2023, Expires: 02/15/2024 [facility] Comment on above: Expected: 11/16/2023, Expires: Start: 11-16-2023 End: 02-15-2024 Estradiol (E2) [Mass/volume] in Serum or Plasma ESTRADIOL-17B BLD Lab Routine Obesity, Class III, BMI 40-49.9 (morbid obesity) ([facility]) Expected: 11/16/2023, Expires: 02/15/2024 [facility] Comment on above: Expected: 11/16/2023, Expires: Start: 11-16-2023 End: 02-15-2024 Follitropin [Units/volume] in Serum or Plasma FOLLICLE STIMULATING HORMONE Lab Routine Obesity, Class III, BMI 40-49.9 (morbid obesity) ([facility]) Expected: 11/16/2023, Expires: 02/15/2024 [facility] Comment on above: Expected: 11/16/2023, Expires: Start: 11-16-2023 End: 02-15-2024 Hemoglobin A1c in Blood HEMOGLOBIN A1C Lab Routine PCOS (polycystic ovarian syndrome) Expected: 11/16/2023, Expires: 02/15/2024 [facility] Comment on above: Expected: 11/16/2023, Expires: Start: 11-16-2023 End: 02-15-2024 Insulin [Units/volume] in Serum or Plasma INSULIN ASSAY BLOOD Lab Routine PCOS (polycystic ovarian syndrome) Expected: 11/16/2023, Expires: 02/15/2024 [facility] Comment on above: Expected: 11/16/2023, Expires: Start: 11-16-2023 End: 02-15-2024 Lutropin [Units/volume] in Serum or Plasma LUTEINIZING HORMONE Lab Routine Obesity, Class III, BMI 40-49.9 (morbid obesity) (HCC) Expected: 11/16/2023, Expires: 02/15/2024 [facility] Comment on above: Expected: 11/16/2023, Expires: Start: 11-16-2023 End: 02-15-2024 Prolactin [Mass/volume] in Serum or Plasma PROLACTIN Lab Routine Obesity, Class III, BMI 40-49.9 (morbid obesity) (HCC) Expected: 11/16/2023, Expires: 02/15/2024 [facility] Comment on above: Expected: 11/16/2023, Expires: Start: 11-16-2023 End: 02-15-2024 Thyrotropin [Units/volume] in Serum or Plasma THYROID STIMULATING HORMONE Lab Routine Obesity, Class III, BMI 40-49.9 (morbid obesity) (HCC) Expected: 11/16/2023, Expires: 02/15/2024 [facility] Comment on above: Expected: 11/16/2023, Expires: Start: 11-16-2023 End: 02-15-2024 Thyroxine (T4) free [Mass/volume] in Serum or Plasma T4 FREE/FREE THYROXINE Lab Routine Obesity, Class III, BMI 40-49.9 (morbid obesity) (HCC) Expected: 11/16/2023, Expires: 02/15/2024 [facility] Comment on above: Expected: 11/16/2023, Expires: Start: 10-21-2023 Covid-19 Vaccine (3 - 2023-24 season) Covid-19 Vaccine ( season) [facility] Start: 10-21-2023 Covid-19 Vaccine ( season) Covid-19 Vaccine () [facility] Start: 10-21-2023 Influenza vaccination Influenza Vaccine (#1) [place] Start: 06-03-2023 [facility] Start: 05-08-2023 [facility] Start: 04-08-2023 [facility] Start: 04-07-2023 Referral to service [facility] Start: 04-07-2023 End: 04-07-2023 Suicide precautions [facility] Start: 02-19-2023 Depression Assessment Depression Assessment [facility] Start: 02-06-2023 Liver elastography w/o imag w/i&r LIVER ELASTOGRAPHY [facility] Start: 12-22-2022 Blood chemistry [facility] Start: 12-21-2022 Blood chemistry [facility] Start: 12-20-2022 Patient discharge [facility] Start: 12-19-2022 Admission procedure [facility] Start: 12-19-2022 [facility] Start: 12-18-2022 Assessment of risk of venous thromboembolism [facility] Start: 12-18-2022 Catheterization of vein [facility] Start: 12-18-2022 Insertion of catheter into peripheral vein [facility] Start: 12-18-2022 Measuring intake and output [facility] Start: 12-18-2022 Providing care according to standard [facility] Start: 12-18-2022 Provision of activity privileges [facility] Start: 12-18-2022 Referral to occupational therapist [facility] Start: 12-18-2022 Referral to service [facility] Start: 12-18-2022 [facility] Start: 12-18-2022 Following clinical pathway protocol [facility] Start: 12-18-2022 Verification routine [facility] Start: 12-18-2022 Admission procedure [facility] Start: 12-18-2022 Hospital admission, emergency, from emergency room, medical nature [facility] Start: 12-18-2022 [facility] Start: 12-18-2022 Consultation [facility] Start: 12-09-2022 End: 12-09-2022 [facility] Start: 10-20-2022 Covid-19 Vaccine ( season) Covid-19 Vaccine ( season) [facility] Start: 10-20-2022 Influenza vaccination Influenza Vaccine (#1) [place] Start: 09-19-2022 Following clinical pathway protocol [facility] Start: 08-08-2022 Colonoscopy w/biopsy single/multiple COLONOSCOPY AND BIOPSY [facility] Start: 08-08-2022 Egd transoral biopsy single/multiple EGD BIOPSY SINGLE/MULTIPLE [facility] Start: 08-08-2022 Patient discharge [facility] Start: 02-17-2022 Elastase, pancreatic (el-1), fecal; quantitative [facility] Work Phone: Start: 02-17-2022 Protein measurement [facility] Work Phone: Start: 01-24-2022 Enteric precautions [facility] Start: 10-20-2021 Influenza vaccination INFLUENZA (#1) [facility] Start: 09-11-2021 Urine microalbumin profile DTaP,Tdap,Td Vaccine (8 - Td or Tdap) [facility] Start: 09-10-2021 Referral to service [facility] Work Phone: Start: 09-10-2021 Suicide precautions [facility] Work Phone: Start: 08-16-2021 Radiography of ankle Ankle min 3 Views [facility] Work Phone: Start: 08-16-2021 Radiologic examination of knee Knee 1 or 2 Views [facility] Work Phone: Start: 08-16-2021 X-ray of both feet Foot min 3 Views [facility] Work Phone: Start: 08-16-2021 XR Ankle GE 3 Views [facility] Work Phone: Start: 08-16-2021 XR Foot GE 3 Views [facility] Work Phone: Start: 08-16-2021 XR Knee 1 or 2 Views [facility] Work Phone: Start: 04-21-2021 COVID-19 VACCINE (3 - Booster for Pfizer series) COVID-19 VACCINE (3 - Booster for Pfizer series) [facility] Start: 02-19-2021 DEPRESSION ASSESSMENT DEPRESSION ASSESSMENT [facility] Start: 01-16-2021 COVID-19 VACCINE (3 - Booster for Pfizer series) COVID-19 VACCINE (3 - Booster for Pfizer series) [facility] Start: 2017 PAP TESTING PAP TESTING [facility] Start: 2017 Screening for malignant neoplasm of cervix [facility] Start: 08-21-2017 Glaucoma screening Dilated Retinal Exam [facility] Start: 10-25-2015 Pneumococcal vaccination Pneumococcal Vaccine (1 of 2 - PCV) [facility] Start: 10-25-2015 Urine microalbumin profile DTAP,TDAP,TD (1 - Tdap) [facility] Start: 2014 Annual PCP Team Chronic Disease Visit Annual PCP Team Chronic Disease Visit [facility] Start: 2014 Anxiety Screening Anxiety Screening [facility] Start: 2014 BP Controlled (<130/80) BP Controlled (<130/80) [facility] Start: 2014 Depression Screening Depression Screening [facility] Start: 2014 HEPATITIS C SCREENING HEPATITIS C SCREENING [facility] Start: 2014 Hepatitis C screening Hepatitis C Screening [facility] Start: 2014 HIV SCREENING HIV SCREENING [facility] Start: 2014 HIV screening HIV Screening [facility] Start: 2010 PEDS TO ADULT TRANSITION ANNUAL ASSESSMENT PEDS TO ADULT TRANSITION ANNUAL ASSESSMENT [facility] Start: 2008 Adult depression screening assessment DEPRESSION SCREENING [facility] Start: 2008 PEDS TO ADULT TRANSITION INITIAL DISCUSSION PEDS TO ADULT TRANSITION INITIAL DISCUSSION [facility] Start: 10-25-2007 HPV VACCINE (1 - 2-dose series) HPV VACCINE (1 - 2-dose series) [facility] Start: 2006 Diabetic foot examination Diabetic Foot Exam [facility] Start: 2006 Hepatitis B screening Urine Albumin:Creatinine Ratio [facility] Start: 2006 MENINGOCOCCAL B: Consider based on risk (1 of 2 - Risk Bexsero 2-dose series) MENINGOCOCCAL B: Consider based on risk (1 of 2 - Risk Bexsero 2-dose series) [facility] Start: 1996 HEPATITIS B (1 of 3 - 3-dose series) HEPATITIS B (1 of 3 - 3-dose series) [facility] Cardiac event recording [facility] Clostridioides diffi cile DNA [Presence] in Unspecified specimen by DAMARIS with probe detection [facility] Work Phone: Clostridioides diffi cile DNA [Presence] in Unspecified specimen by DAMARIS with probe detection [facility] COVID & INFLUENZA A/ B & RSV PCR, ROUTINE COVID & INFLUENZA A/B & RSV PCR, ROUTINE Microbiology Routine Sore throat URI, acute 01/24/2024 2:45 PM EST [facility] Work Phone: COVID & INFLUENZA A/ B & RSV PCR, ROUTINE COVID & INFLUENZA A/B & RSV PCR, ROUTINE Microbiology Routine Influenza-like illness Ordered: 04/14/2024 [facility] Work Phone: Comment on above: Ordered: 04/14/2024 CTA Heart and [place] ry arteries W contrast IV [facility] Gastrointestinal pathogens panel - Stool by DAMARIS with probe detection [facility] Work Phone: Hemoglobin A1c/Hemoglobin.total in Blood [facility] Lactoferrin [Presenc e] in Stool by Immunoassay [facility] Work Phone: Liver stiffness by US.transient elastography [facility] MR Abdomen WO and W contrast IV [facility] Ova and Parasites Ova and Parasites [facility] Work Phone: Ova and parasites identified in Unspecified specimen by Light microscopy [facility] Work Phone: Patient Education [facility] Work Phone: Patient referral [facility] Work Phone: Protein measurement [facility] Work Phone: Radionuclide gastric emptying study [facility] Work Phone: Removal impacted cer umen irrigation/lvg unilat AMBULATORY EAR LAVAGE/IRRIGATION Procedures Routine Impacted cerumen of left ear Ordered: 09/13/2023 [facility] Work Phone: Comment on above: Ordered: 09/13/2023 Troponin T.cardiac [Mass/volume] in Serum or Plasma by High sensitivity method [facility] Ultrasound elastography [facility] Work Phone: US Abdomen limited [facility] Work Phone: Immunizations Immunization Date Immunization Notes Care Provider Fa romel 10-31-2020 influenza virus vacc ine, unspecified formulation Louis Schmidt APRN.[employer] Work Phone: [facility] Payers Date Payer Category Payer Self-pay [id number] 2020 Medicaid [employer] [id number] 2020-Present [phone] [address] [place] [address] Medicaid [id number] 2020 Medicaid [id number]. [id number] 2019 Private Health Insurance 2019 Medicaid [id number] 2016 Private Health Insurance [id number] 1996 Unknown [id number]. 627 1996 Unknown [id number] 2.16840.1.791091.3.579.2. 903 1996 Unknown [id number] 2.840.1.424364.3.579.2. 1259 1996 Unknown [id number] 04.06.830.1.944231.3.579.2. 1259 Unknown [id number] Unknown [id number] 2.16.840.1.852314.3.579.2. 462 Unknown [id number] 2.16.840.1.195223.3.579.2. 462 Unknown [id number] 2.16.840.1.844944.3.579.2. 462 Unknown [id number] 2.16.840.1.204297.3.579.2. 462 Unknown [id number] 2.16.840.1.009867.3.579.2. 462 Unknown [id number] 2.16.840.1.381796.3.579.2. 462 Unknown [id number] 2.840.1.041641.3.579.2. 462 Unknown [id number] 2.840.1.130797.3.579.2. 462 Unknown [id number] 2.840.1.123690.3.579.2. 462 Unknown [id number] 2.840.1.507127.3.579.2. 462 Unknown [id number] 2..840.1.440505.3.579.2. 462 Unknown [id number] 2..840.1.325733.3.579.2. 462 Unknown [id number] 2.840.1.098774.3.579.2. 462 Unknown [id number] 2.840.1.889138.3.579.2. 462 Unknown [id number] 2.840.1.513361.3.579.2. 462 Unknown [id number] 2.16.840.1.053527.3.579.2. 462 Unknown [id number] 2.16.840.1.579979.3.579.2. 462 Unknown [id number] 2.16.840.1.589021.3.579.2. 462 Unknown [id number] 2.840.1.034783.3.579.2. 462 Unknown [id number] 2.16.840.1.721721.3.579.2. 462 Unknown [id number] 2.16.840.1.610408.3.579.2. 462 Unknown [id number] 2.16.840.1.747218.3.579.2. 462 Unknown [id number] 2.16.840.1.552777.3.579.2. 462 Unknown [id number] 2.16.840.1.593329.3.579.2. 462 Unknown [id number] 2.16.840.1.442266.3.579.2. 462 Unknown [id number] 2.16.840.1.373298.3.579.2. 462 Unknown [id number] 2.16.840.1.497492.3.579.2. 462 Unknown [id number] 2.16.840.1.949668.3.579.2. 462 Unknown [id number] 2.16.840.1.985597.3.579.2. 462 Unknown [id number] 2.16.840.1.760123.3.579.2. 462 Unknown [id number] 2.16.840.1.730162.3.579.2. 462 Unknown [id number] 2.16.840.1.017664.3.579.2. 462 Unknown [id number] 2.16.840.1.237850.3.579.2. 462 Unknown [id number] 2.16.840.1.142744.3.579.2. 462 Unknown [id number] 2.16.840.1.337190.3.579.2. 462 Unknown [id number] 2.16.840.1.774657.3.579.2. 462 Social History Date Type Detail Facility Start: 08-21-2016 End: 11-18-2024 Never smoked tobacco (finding) [facility] Sex Assigned At [facility] Start: 02-03-2021 End: 01-30-2023 Tobacco smoking status NHIS Unknown if ever smoked [facility] Start: 05-27-2020 With Family [facility] Start: 09-22-2020 Non-smoker [facility] Start: 1995 Sex Assigned At Female [facility] Start: 08-21-2016 End: 01-08-2024 Tobacco use and exposure Smokeless tobacco non-user [facility] Start: 10-13-2020 End: 10-16-2024 Alcohol intake Current non-drinker of alcohol (finding) [facility] Start: 1996 Sex Assigned At Not on file [facility] Start: 12-08-2019 End: 09-03-2021 Exposure to SARS-CoV-2 (event) Not sure [facility] Start: 12-12-2021 End: 10-26-2023 History of Social function [facility] Start: 12-12-2021 End: 10-26-2023 Tobacco use panel [facility] Start: 04-03-2016 National Score (1-100), lower number is lower risk Not on file [facility] Start: 07-30-2022 End: 12-31-2023 Alcoholic beverage intake Current drinker of alcohol (finding) [facility] Start: 07-30-2022 Alcohol Comment Alcohol: 1-2 drinks/monthly or less. caffeine: 3-4 cups/day [facility] Start: 05-02-2024 End: 06-05-2024 Sex Female (finding) [facility] Start: 05-30-2024 Gender identity Identifies as female gender (finding) [facility] Start: 05-30-2024 Sexual orientation Heterosexual (cait black) [facility] NEGATED: Highlighted row [facility] NEGATED: Highlighted rowStart: NINF History of tobacco use Passive smoker [facility] Medical Equipment Procedure Code Equipment Code Equipment Origin al Text Equipment Identifier Dates Start: 08-15-2023 End: 07-15-2024 Goals Date Patient Goal Desired Activity /State Functional Status Date Assessment Result Facility 12-20-2022 Functional status Ambulates [facility] Work Phone: 09-19-2022 Functional status Ambulates [facility] Work Phone: Mental Status Date Assessment Result Facility 11-18-2024 Cognitive function [facility] Work Phone: 10-27-2024 Cognitive function [facility] Work Phone: 09-04-2024 Cognitive function Awake;Alert;A ppropriate;Follow s Commands [facility] Work Phone: 06-03-2024 Cognitive function [facility] Work Phone: 05-14-2024 Cognitive function Awake;Alert;A ppropriate;Follow s Commands [facility] Work Phone: 05-08-2023 Cognitive function Level Of Cons ciousness Awake;Alert;Appropriate [facility] Work Phone: 12-20-2022 Cognitive function Voice[facility] Work Phone: 12-18-2022 Cognitive function Level Of Cons ciousness Awake;Alert;Follows Commands [facility] Work Phone: 11-22-2022 Cognitive function Level Of Cons ciousness Awake;Alert;Appropriate;Follow s Commands [facility] Work Phone: 09-19-2022 Cognitive function Voice/Name [facility] Work Phone: 08-08-2022 Cognitive function Touch/Shaking [facility] Work Phone: 08-08-2022 Cognitive function Patient Orien tation Person;Place;Time [facility] Work Phone: 01-15-2022 Cognitive function Level Of Cons ciousness Awake;Alert;Appropriate;Follow s Commands [facility] Work Phone: 08-29-2021 Cognitive function Level Of Cons ciousness Awake;Alert;Appropriate;Follow s Commands [facility] Work Phone: Clinical Notes 01-07-2020 to 12-22-2024 Note Date & Type Note Facility 12-22-2024 Note HNO ID: [id number] Author: LAURA CARSON, PhD Service: ? Author Type: Psychologist Type: Progress Notes Filed: 12/22/2024 11:53 Note Text: [facility] DEPARTMENT OF ENDOCRINOLOGY Progress Note December 22, 2024 BILLING CODE:Leonid CPT Code: .2988724 Virtual PSYTX PT AND/FAMILY 30 MINS Time initiated session: 10:35 AM to 11:00 PM Date of First Session: 06/02/24 (initial evaluation) Session #: 4 Collateral Parties Present: none. Virtual Visit yes I have communicated my name and active licensure. If seen remotely, The patient's identity and physical location were verified at the time of this visit. Either the patient or their legal motor vehicle representative has been informed of the risks and benefits of -- and alternatives to -- treatment through a remote evaluation and consents to proceed with the evaluation remotely. REASON FOR VISIT Pt with complex medical and mental health [...] using CBT skills to manage stressors better. EATING B: egg and toast sometimes brown S: 11:00 sandwich and 1 oz bag of chips (sometimes does not eat the entire bag). 2:00 remainder of chips and/or [place] cucumbers and hummus 4:30-5:30 Beef Stroganoff, meatloaf with mashed potatoes and vegetables (pt cooks) - largest meal of the day Once per week dining out. Overeat cucumbers and hummus at times - not eating until she feels stuffed I'm doing really well, focusing on protein. Eating a small amount at 8 pm - turkey and cheese stick Self-induced vomiting? No Juices/Sport Drinks? Only if having low sugars Weight: 272 3 days ago. Self Reported? yes Seeing RD at [facility] in December EXERCISE/PHYSICAL ACTIVITY I've been passing out a lot. 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 Pt sees neurologist in December. MENTAL HEALTH Seeing therapist once every two weeks - will start with new therapist, Alisson, soon because Mike is leaving. Psychiatrist every 3-4 months - Aislinn Garces. Patient mood is: Unchanged since last session. Affect is: Appropriate. Patient Data Binge Eating Scale (BES) 07/31/2024 09/19/2024 10/13/2024 Eating Habits Checklist Total Score 23 19 19 Patient-reported <18 = minimal binge eating, 18-26 = moderate binge eating, >27 = severe binge eating Generalized Anxiety Disorder Scale (BLANQUITA-7) 07/31/2024 09/19/2024 10/08/2024 BLANQUITA - 7 SCORES Score 10 9 9 8 (0-4) minimal anxiety, (5-9) mild anxiety, (10-14) moderate anxiety, (15-21) severe anxiety Patient Health Questionnaire (PHQ-9) 07/31/2024 09/19/2024 10/08/2024 PHQ-9 Score 10 13 13 10 (0-4) minimal depression, (5-9) mild depression, (10-14) moderate depression, (15-19) moderately severe depression, (20-27) severe depression EDUCATION/INTERVENTION Supportive education Assessment: Binge Eating Disorder Bipolar Disorder Generalized Anxiety Disorder Psychological Factors Affecting Morbid Obesity. Current Outpatient Medications Medication Sig diphenoxylate-atropine (LOMOTIL) 2.5-0.025 mg per tablet Take 1 tablet by mouth three times a day. norgestimate-ethinyl estradiol (MONO-LINYAH) 0.25-0.035 mg tablet Take 1 tablet by mouth once daily. amLODIPine (NORVASC) 2.5 mg tablet Take 2.5 mg by mouth two times a day. Cyanocobalamin 1,000 mcg subl Dissolve 1 tablet under the tongue once daily. dicyclomine (BENTYL) 20 mg tablet Take 20 mg by mouth three times a day as needed. atogepant (QULIPTA) 60 mg tablet Take 60 mg by mouth once daily. cholecalciferol (VITAMIN D3) 1,000 unit tab tablet [...] mg by mouth two times a day. polyet (more content not 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 [facility] 11-28-2024 Progress note Note Date/Time November 28, 2024 2:03pm [facility] [address] [place] [address] OFFICE VISIT Date of Service: 11/28/24 MR#: [id number] Acct: [id number] Name: MARION GUTIERREZ Rep #: [id number] : 1995 Provider: HORTENSIA Ramires Age/Sex: 29/F Location[facility] Status: Signed HPI HPI History of Present Illness Details: Patient is a 29-year-old white female who presents to the office today for an urgent cardiovascular follow up visit. She is mildly autistic. Patient carries a history of palpitations that correlate with sinus tach on an event monitor. She also has a history of syncope with a negative tilt table test in 2016, and again in October of this year. It was felt to be vasovagal in etiology. When the patient was wearing the event monitor she actually had a syncopal spell that documented sinus tachycardia. On 11/18/24, she presented to the emergency department with full body paresthesias. She was hypoglycemic at 66, according to EMS upon initial encounter.Paresthesias resolved with IV D10 and glucose and upon ED presentation was in the 80s. She has history of gastroparesis, Crohn's disease, and insulin resistance. Today, she states that these paresthesias are continuing. She does use a cane to help with ambulation. From a cardiac standpoint, the patient is doing well. She does acknowledge palpitations. She describes this a fluttering sensation. She does acknowledge midsternal chest pain with walking longer distances. She describes this as a tightening sensation. She does acknowledge SOB with exertion. This is nothing new or worsening. She denies Orthopnea, and PND. She does not have bleeding issues; no blood in urine, stool, or nosebleeds. She does acknowledge fatigue. She denies myalgias, or claudication. She does not have edema, or sudden weight gain. She does acknowledge dizziness, lightheadedness and syncope. Intake Vital Signs 11/18/24 15:23 11/28/24 07:44 11/28/24 13:27 Height 5 ft 6 in 5 ft 6 in Weight: 293 lb BMI 47.2 BP 122/82 H 123/79 H Blood Pressure Location Lt brachial Rt brachial Position Sitting Respiration 18 Pulse 47 L Pulse Source Monitor Pulse Oximetry (%) 98 98 Intake Visit Reasons: Dizziness (cardiology) Chicken Dresser Required: No Is patient in pain?: No Allergies ondansetron (From Zofran (as hydrochloride)) Allergy (Verified 11/30/24 17:46) Anaphylaxis pollen extracts Allergy (Verified 11/30/24 17:46) Hives metformin Adverse Reaction (Mild, Verified 11/30/24 17:46) Nausea/Vom/Diarrhea escitalopram (From Lexapro) Adverse Reaction (Verified 11/30/24 17:46) Other lactase (From Dairy Aid) Adverse Reaction (Verified 11/30/24 17:46) Upset Stomach Medications ?Medication ?Instructions ?Recorded ?Confirmed ?Type lithium carbonate 300 mg capsule 300 mg PO DAILY Bipol ar 04/05/17 11/28/24 History ferrous sulfate 325 mg (65 mg 325 mg PO QODAY suppleme nt 01/24/22 11/28/24 History iron) tablet (FeroSul) lithium carbonate 600 mg capsule 600 mg PO QHS mental health 01/24/22 11/28/24 History aripiprazole lauroxil 441 mg/1.6 441 mg IM .Q28 DAYS [facility] 12/18/22 11/28/24 History mL suspension, ext.rel. IM syringe ([place]) cholecalciferol (vitamin D3) 25 25 mcg PO DAILY vitami n 12/18/22 11/28/24 History mcg (1,000 unit) tablet (Vitamin D3) imipramine HCl 25 mg tablet 25 mg PO DAILY mental heal th 12/18/22 11/28/24 History pantoprazole 40 mg tablet,delayed 40 mg PO QHS 4 11/28/24 History release simvastatin 20 mg tablet 20 mg PO QHS 06/03/23 History diphenoxylate-atropine 2.5 1 tab PO BID PRN diarrhea # 30 tabs 10/29/23 11/28/24 Rx mg-0.025 mg tablet (Lomotil) dicyclomine 20 mg tablet 20 mg PO TID PRN abdominal p ain 05/08/24 11/28/24 Rx #30 tabs metoclopramide HCl 10 mg tablet 10 mg PO Q6H PRN nause a and 05/08/24 11/28/24 Rx (Reglan) vomiting #20 tabs miscellaneous medical supply #1 ea 05/29/24 09/25/24 R x metoprolol tartrate 50 mg tablet 100 mg (2 x 50 mg) PO BID #180 tabs 07/21/24 11/28/24 Rx amlodipine 2.5 mg tablet 2.5 mg PO BID 09/04/2411/28 History cyanocobalamin (vitamin B-12) 1,000 mcg sublingual YI LY 09/04/24 11/28/24 History 1,000 mcg sublingual tablet norgestimate 0.25 mg-ethinyl 1 tab PO DAILY 09/04/24 1 History estradiol 0.035 mg tablet (Grundy-Linyah) rizatriptan 10 mg tablet 10 mg PO Q2H PRN migraine he adache 09/04/24 11/28/24 History spironolactone 25 mg tablet 25 mg PO QDAY #30 tabs 11/28/24 Rx atogepant 60 mg tablet (Qulipta) 60 mg PO QDAY 5 11/28/24 History diphenoxylate-atropine 2.5 1 tab PO TID PRN 11/28/24 1 History mg-0.025 mg tablet polyethylene glycol 3350 17 4 g PO ONCE PRN constipati on 11/28/24 11/28/24 History gram/dose oral powder (Miralax) Ejection fraction %: 60 Have you fallen in the past year?: Yes PFSH Medical History (Reviewed 11/30/24 @ 17:46 by Shawanda Ramires 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, 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 WAREHOUSE AGENT-C) Dietary restriction Shortness of breath on exertion History of pain when walking Alcohol use Picking own skin Low iron Fatty liver Gastroparesis Cardiology follow-up encounter Obesity Depression Diabetes GERD (gastroesophageal reflux disease) Irregular heart beat Cellulitis History of echocardiogram Wears glasses Bipolar disorder Anxiety Arthritis Back pain Migraine headache Syncope Non-smoker Bipolar 1 disorder PCOS (polycystic ovarian syndrome) IBS (irritable bowel syndrome) Autism Surgical History (Reviewed 11/30/24 @ 17:46 by Shawanda Ramires TOBACCO WAREHOUSE AGENT, TOBACCO WAREHOUSE AGENT-C) History of colonoscopy History of esophagogastroduodenoscopy (EGD) History of tonsillectomy and adenoidectomy H/O knee surgery H/O spinal fusion Family History Mother Uterine cancer Other Asthma Depression Diabetes GERD (gastroesophageal reflux disease) Heart disease Hyperlipidemia Hypertension Social History (Reviewed 11/30/24 @ 17:46 by Shawanda Ramires 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 WAREHOUSE AGENT, TOBACCO WAREHOUSE AGENT-C) household members: none housing: apartment current occupational [...] home: Yes additional social history: single ROS Const Const: Positive for fatigue; Negative for weakness, headache(s) or frequent falls Eyes Eyes: Negative for blurry vision ENT ENT: Positive for dizziness; Negative for headache(s) or Nosebleed/epistaxis Cardio Chest Pain: Yes Frequency: other Character: tightness Onset: exercise Location: mid sternal Palpitations: Yes (fluttering sensation) Edema: None Muscle aches with walking: None Resp Respiratory: Positive for SOB with activity; Negative for SOB at rest or SOB orthopnea\SOB lying down GI GI: Negative nausea, vomiting, heartburn, bright, red blood in stools or black,tarry stools : Negative for hematuria Neuro Neuro: Positive for dizziness, lightheadedness and syncope (passed out today forapprox 5 minutes); Negative for near syncope, frequent falls, headache(s), weakness or blurry vision Endo Endo: Positive for fatigue Cardiology Exam Const Appearance: cooperative, comfortable and no acute distress Nutritional Appearance: obese Orientation: alert and oriented x3 Limitations: other Mildly autistic-slow to respond Head Head: normal to inspection Ears: hearing grossly normal bilaterally Nose: external nose normal Face and Sinus: face symmetric Eyes General: appearance normal, both eyes and all related structures Neck Neck: normal visual inspection and no JVD Chest Chest inspection: normal inspection of the chest and other (Increased AP diameter.) Auscultation: Bilateral: Clear to Auscultation Cardio Rate: regular rate Rhythm: regular rhythm; Negative ectopic beats Heart sounds: S1 normal and S2 normal; Negative rub, gallop or murmur Distant heart tones GI GI: normal to inspection and obese Neuro General: patient alert and patient oriented x3 Skin Skin: no rashes or lesions noted Extremities Lower Extremity Edema: None: Bilateral Psych Psychological: flat affect Supplemental Info Supplemental Information Tilt Table 11/17/2024 Summary: Negative head upright tilt table test. Patient is noted to have resting hypertension. Echocardiogram 12/19/2022 Interpretation Summary Normal LV size. Left ventricular systolic function is normal. The estimated ejection fraction is 60 %. Contrast injection was performed. The study was technically limited. Chest CTA 07/24/2020 IMPRESSION: 1. Technical limitations to the study. 2. No central/large pulmonary embolism. 3. Recommend ultrasonography of the lower extremity venous system for further risk stratification. 4. Hepatic steatosis and severe hepatomegaly. Hepatology referral advised. Tilt Table Test 02/08/2017 Summary: 70? upright tilt table study considered compatible with vasovagal symptomatologybut considered negative for reproducible vasovagal/neurocardiogenic syncope. Carotid Duplex Ultrasound 09/28/2016 Interpretation Summary No significant atherosclerotic plaque or stenosis noted in the internal carotid arteries bilaterally. Flow within the left vertebral artery is antegrade. Flow could not be demonstrated in the right vertebral artery. Labs: LDL Cholesterol, (0-130) 78 mg/dL HDL Cholesterol, (40-) 32 mg/dL L Cholesterol, (200) 144 mg/dL Triglycerides, (-199) 171 mg/dL Diagnostics: Electrocardiogram Echocardiogram Chest X-Ray Chest CTA Abdomen Ultrasound Abdomen/Pelvis CT Extremity Arterial Study Cardiac Tilt Table Test Venous Doppler Study Past Visits: Cardiology Visit 11/28/24 Assessment and Plan Assessment and Plan (1) Hypertension: Status: Chronic Qualifiers: Hypertension type: primary hypertension Qualified Code(s): I10 - Essential (primary) hypertension Plan: Patient has a history of hypertension. Her blood pressures is well controlled today at 123/79. She will continue amlodipine 2.5mg twice daily, metoprolol tartrate 100mg twice daily, and spironolactone 25mg daily. She will continue to monitor her blood pressures at home, and notify our office of any persistently elevated or low blood pressure readings. (2) Palpitations: Status: Acute Plan: Patient has a history of palpitations. Her most recent 14-day event monitor from 06/05/2024 demonstrated sinus tachycardia with a heart rate of 109 bpm. VE less than 1%, SVE less than 1%, atrial fibrillation 0%. Her EKG from today demonstrates sinus bradycardia, cannot rule out anterior infarct, heart rate 47 bpm. Will obtain a 48 hour Holter monitor to assess her heart rate and rhythm. Depending on results, further recommendations will be made. At this time, she will continue with her current medical therapy?metoprolol 100 mg twice daily. (3) Chest pain: Status: Acute Plan: Patient does acknowledge chest tightness with exertion. Her EKG from today demonstrates sinus bradycardia, cannot rule out anterior infarct, heart rate [address] Bartlett, as patient is unable to walk on a treadmill for stress echocardiogram due to numbness and tingling in bilateral lower extremities. Will obtain a cardiac angiography CTA to further assess this. Depending on results, further recommendations will be made. (4) Syncope: Status: Acute Qualifiers: Syncope type: unspecified Qualified Code(s): R55 - Syncope and collapse Comment: OCC Plan: Patient states she had a syncopal episode today. Her most recent tilt table study, event monitor, and echocardiogram were reviewed. Her most recent 14-day event monitor from 06/05/2024 demonstrated sinus tachycardia with a heart rate of109 bpm. VE less than 1%, SVE less than 1%, atrial fibrillation 0%. Her EKG from today demonstrates sinus bradycardia, cannot rule out anterior infarct, heart rate 47 bpm. Will obtain a 48 hour Holter monitor to assess her heart rateand rhythm, and lab work to further assess. Depending on results, further recommendations will be made. At this time, she will continue with her current medical therapy?metoprolol 100 mg twice daily. She was strongly encouraged to stay well-hydrated, and wear compression stockings during the day. She will continue to monitor for any concerning symptoms. Orders: Orders Cardiac Holter Monitor, 48 Hrs 11/28/24 HORTENSIA Montalvo NP R00.2 - Palpitations, R55 - Syncope and collapse Comprehensive Metabolic Profil 11/28/24 HORTENSIA Montalvo NP R00.2 - Palpitations, R55 - Syncope and collapse CBC W/Diff, Automated 11/28/24 HORTENSIA Montalvo NP R00.2 - Palpitations, R55 - Syncope and collapse Pro- Brain NATRIURETIC PEPTIDE 11/28/24 HORTENSIA Montalvo NP R00.2 - Palpitations, R55 - Syncope and collapse Thyroid Stim Hormone (TSH) 11/28/24 HORTENSIA Montalvo NP R00.2 - Palpitations,R55 - Syncope and collapse Magnesium 11/28/24 LAKESHA Montalvo NPC R00.2 - Palpitations, R55 - Syncope and collapse Free T4 11/28/24 HORTENSIA Montalvo NP R00.2 - Palpitations, R55 - Syncope and collapse Free T3 11/28/24 HORTENSIA Montalvo NP R00.2 - Palpitations, R55 - Syncope and collapse [place] 11/28/24 HORTENSIA Montalvo NP R00.2 - Palpitations, R55 - Syncope and collapse 12 Lead EKG performed by BMS 11/28/24 LAKESHA Montalvo NPC R00.2 - Palpitations, R55 - Syncope and collapse Cardiac Angiography CTA 11/28/24 LAKESHA Montalvo NPC R07.9 - Chest pain, unspecified Medications: Changed From polyethylene glycol 3350 (Miralax) Mix entire bottle into 64oz of clear liquid for colonoscopy prep 4 grams PO ONCE 238 grams 0RF constipation To polyethylene glycol 3350 (Miralax) Mix entire bottle into 64oz of clear liquid for colonoscopy prep 4 grams PO ONCE PRN Dr. Johns Friend, DO From diphenoxylate-atropine 2.5-0.025 mg 1 TAB PO TID 90 tabs 0RF To diphenoxylate-atropine 2.5-0.025 mg 1 TAB PO TID PRN Dr. Johns Friend, DO Plan Details Additional Comments: Patient will follow-up in 2 months, or sooner if needed. Thank you for allowing me to participate in the care of your patient. Please donot hesitate to call if any issues arise. This note was generated using a voice recognition system and there may be incorrect words, spelling, or punctuation that were not noted when reviewing the office note prior to saving. Portions of this documentation were copied and pasted from previous office visitnotes to provide cohesive continuity of the history. The note has been reviewed,edited, and updated, as necessary. Follow Up: keep as is (KR) Coding Level of Care Code Off vis,est,level 4 Diagnoses Primary hypertension I10 Hypertension type: primary hypertension Palpitations R00.2 Chest pain R07.9 Syncope, unspecified syncope type R55 Syncope type: unspecified Coding Level of Care Code Off vis,est,level 4 Diagnoses Primary hypertension I10 Hypertension type: primary hypertension Palpitations R00.2 Chest pain R07.9 Syncope, unspecified syncope type R55 Syncope type: unspecified Clinical Quality Measures Falls Risk Screening/Assistive Devices Have you fallen in the past year?: Yes Cardiac Ejection fraction %: 60 11/30/24 8479 <Electronically signed by Shawanda BAZAN> Date _ Shawanda BAZAN Cosigner Signature: Date (if applicable) CC: Karuna BAZAN Beam ~ [employer] Work Phone: 1(126) 517-651310-07-2025 NoteHNO ID: [id number] Author: MARIA ELENA SAVAGE, Natural Developer Service: ? Author Type: Natural Developer Type: Progress Notes Filed: 11/25/2024 13:51 Note Text: Virtual Visit (Audio/Visual)I have discussed the nature of this visit with the patient which will occur via [facility] (Phone, Virtual Visit) and she agrees to proceed with this interaction. Marion is doing well. She has been doing walks and stretches with her legs. Her vitamin b12 is low. She did look at the videos- like some exercises. Diet has been ok. Water intake going well. Trying to get to 4/wk. Next Follow up 2 of 3 02/05/2025 at 11:00am [phone] Discharge summary Author Mau Smallwood [facility] Note Date/Time November 18, 2024 6:08pm [facility] Medical Records Department [address] [place] [address] Emergency Department Summary 11/18/24 MR#: [id number] Acct: [id number] Name: MARION GUTIERREZ Rep #:[id number] : 1995 29 From: Mau Smallwood MD PCP: Karuna Lim [employer] Status:REG ER Location: ED HPI History of Present Illness Chief Complaint: Hypoglycemia Detail of Chief Complaint: Blood sugar when she had total body paresthesia 83, 65 per EMS Informant: patient, parent and EMS Onset/Context/Timing Onset: Today Context: Sudden Onset Timing: Intermittent and Lasts (Patient is not able to tell me how long she had total body paresthesia.) Quality: Total body paresthesia including perioral Location: Generalized Current Severity: Gone Maximum Severity: Severe Worsened by: Patient believes due to hypoglycemia. Blood sugar at the time was 83 Relieved by: Uncertain Associated Symptoms Associated Symptoms: None Narrative Narrative: Patient is a 29-year-old female. She has history of gastroparesis, Crohn's disease, insulin resistance however she is on no insulin presently. She is seenby Dr. Oliva. Dr. Oliva is working her up for possible dumping syndrome . Patient's A1c is normal. Patient is seeing Dr. Oliva because of chronic diarrhea. She had a recent colonoscopy. These findings revealed a normal rectal exam and perianal area. There was an area of mildly congested mucosa. Biopsies were taken. Small mouth diverticula were found in the rectosigmoid colon. The examination was otherwise normal. She was discharged to home. The colonoscopy was performed on October 27, 2024. Patient had a recent blood workthat was unremarkable i.e. B basic metabolic panel. His office note from 2024 is reviewed. Patient had significant workup. She had a recent MRI thatrevealed a fatty liver. Per Dr. Oliva's note he believes the diarrhea is due to poor diet. She also has chronic gastric paresis. Patient presents because of total body numbness perioral numbness that started prior to presentation. She has had this before. She states this only lasted 5 minutes in the past. Her blood sugar was in the 80s. 65 when EMS saw her. They started her on D10. At the time of my exam she had no complaints other than felt weak. Prior similar symptoms: Yes Recent Illness/Hospitalization: Yes [facility] Medical History Dietary restriction Shortness of breath on exertion History of pain when walking Alcohol use Picking own skin Low iron Fatty liver Gastroparesis Cardiology follow-up encounter Obesity Depression Diabetes GERD (gastroesophageal reflux disease) Irregular heart beat Cellulitis History of echocardiogram Wears glasses Bipolar disorder Anxiety Arthritis Back pain Migraine headache Syncope Non-smoker Bipolar 1 disorder PCOS (polycystic ovarian syndrome) IBS (irritable bowel syndrome) Autism Home Medications ?Medication ?Instructions ?Recorded ?Last Taken ?Type lithium carbonate 300 mg capsule 300 mg PO DAILY Bipol ar 04/05/17 09/27/24 History ferrous sulfate 325 mg (65 mg 325 mg PO QODAY suppleme nt 01/24/22 10/24/24 History iron) tablet (FeroSul) lithium carbonate 600 mg capsule 600 mg PO Q mental health 01/24/22 09/26/24 History aripiprazole lauroxil 441 mg/1.6 441 mg IM .Q28 DAYS m [facility] 12/18/22 09/24/24 History mL suspension, ext.rel. IM syringe ([place]) cholecalciferol (vitamin D3) 25 25 mcg PO DAILY vitami n 12/18/22 09/26/24 History mcg (1,000 unit) tablet (Vitamin D3) imipramine HCl 25 mg tablet 25 mg PO DAILY mental heal 12/18/22 09/26/24 History pantoprazole 40 mg tablet,delayed 40 mg PO QHS 4 09/26/24 History release simvastatin 20 mg tablet 20 mg PO QHS 06/03/23 History lactulose 10 gram/15 mL oral 30 g (45 mL) PO BID PRN 0 09/28/23 10/21/23 Rx solution constipation #473 mL hyoscyamine sulfate 0.125 mg tablet 0.125 mg PO BID-QI D PRN dyspepsia 10/10/23 10/21/23 Rx #30 tabs diphenoxylate-atropine 2.5 1 tab PO BID PRN diarrhea # 30 tabs 10/29/23 Unknown Rx mg-0.025 mg tablet (Lomotil) dicyclomine 20 mg tablet 20 mg PO TID PRN abdominal p ain 05/08/24 09/23/24 Rx #30 tabs metoclopramide HCl 10 mg tablet 10 mg PO Q6H PRN nause a and 05/08/24 09/26/24 Rx (Reglan) vomiting #20 tabs miscellaneous medical supply #1 ea 05/29/24 Unknown Rx metoprolol tartrate 50 mg tablet 100 mg (2 x 50 mg) PO BID #180 tabs 07/21/24 09/27/24 10:00 Rx amlodipine 2.5 mg tablet 2.5 mg PO BID 09/04/2409/27 10:00 History atogepant 60 mg tablet (Qulipta) 60 mg PO DAILY 09/27/24 History cyanocobalamin (vitamin B-12) 1,000 mcg sublingual YI LY 09/04/24 09/26/24 History 1,000 mcg sublingual tablet norgestimate 0.25 mg-ethinyl 1 tab PO DAILY 09/04/24 U nknown History estradiol 0.035 mg tablet (Grundy-Linyah) rizatriptan 10 mg tablet 10 mg PO Q2H PRN migraine he adache 09/04/24 Unknown History diphenoxylate-atropine 2.5 1 tab PO TID #90 tabs 09/2509/27/24 10:00 Rx mg-0.025 mg tablet polyethylene glycol 3350 17 4 g PO ONCE constipation # 238 grams 10/14/24 Unknown Rx gram/dose oral powder (Miralax) spironolactone 25 mg tablet 25 mg PO QDAY #30 tabs Unknown Rx Allergy/AdvReac Type Severity Reaction Status Date / Time ondansetron (From Zofran (as Allergy Anaphylaxis Verified 10/27/24 10:06 hydrochloride)) pollen extracts Allergy Hives Verified 10/27/24 10:06 metformin AdvReac Mild Nausea/Vom/ Verified 10/27/24 10:06 Diarrhea escitalopram (From Lexapro) AdvReac Other Verified 10/27/24 10:06 lactase (From Dairy Aid) AdvReac Upset Verified 10/27/24 10:06 Stomach Family History Mother Uterine cancer Other Asthma [...] ROS ED Constitutional Constitutional ED: Denies chills, fever(s), subjective, sweats or weight loss Eyes Eyes: Denies blurry vision or change in vision ENT ENT ED: Denies ear pain, rhinorrhea or sore throat Cardiovascular Cardiovascular: Denies chest pain, orthopnea or palpitations Respiratory/Chest Respiratory/Chest: Denies cough, dyspnea, dyspnea on exertion or orthopnea Gastrointestinal Gastrointestinal: Reports diarrhea and other Details: The diarrhea is chronic. ; Denies abdominal pain, constipation, melena, nausea or vomiting Genitourinary Genitourinary ED: Denies dysuria, hematuria or urinary frequency Musculoskeletal Musculoskeletal: Denies arthralgias, back pain, myalgias or neck pain Integumentary Denies rash Neurologic Neurologic: Reports paresthesias RUE, RLE, LUE and LLE and other Details: Also had perioral numbness. ; Denies headache(s) Psychiatric Psychiatric: Denies anxiety or depression Endocrine Endocrinology: Denies cold intolerance or heat intolerance Hematologic/Lymphatic Hematologic/Lymphatic: Reports systems reviewed and no addt'l complaints, exceptas documented EXAM Physical Exam Const Vital Signs: 11/18/24 15:23 11/18/24 15:29 11/18/24 17:22 Temperature 98.5 F Temperature Source Oral Pulse Rate 68 65 Respiratory Rate 16 Respiratory Pattern Normal Blood Pressure 153/71 H Blood Pressure Mean 98 Pulse Ox 100 97 Oxygen Delivery Method Room Air Room Air Positive well nourished and well developed Constitutional Narrative: BMI is 48.2. General Appearance ED: well developed and NAD; Negative for cyanotic, diaphoretic or pallor HEENT HEENT Narrative: Head is atraumatic no cephalic. Ears normal. TMs normal. Nares patent. Thereis no discharge. Posterior pharynx is normal. Uvula midline. No deviation of the tongue with protrusion. Eyes PERRL and EOMs intact bilaterally General Eye ED: Negative for pale conjunctiva or scleral icterus Neck no lymphadenopathy, supple and no JVD Resp normal respiratory effort and clear to auscultation bilaterally Cardio regular rate, regular rhythm, S1 normal heart sound, S2 normal heart sound and no murmurs GI normal to inspection, nondistended, normoactive bowel sounds, non-tender, non-distended and no masses; Negative for hepatosplenomegaly GI Narrative: Abdominal exam is limited due to body habitus. Back/Spine no CVA tenderness Extremity Extremity Narrative: Poor hygiene and callus formation on her feet otherwise unremarkable. Neuro oriented x3, CN's II-XII intact bilaterally and no sensory deficits noted Neuro Narrative: There is no dysmetria. There is a negative [place] sign. Sensorium / Orientation: alert Motor Exam: strength 5/5 throughout Skin no rashes or lesions noted, no wounds and skin turgor normal General Skin Exam: elasticity normal; Negative for jaundice or pallor MDM MDM MDM Narrative Medical decision making narrative: Patient denies any symptoms to suggest affective disorder and hyperventilation syndrome. Since there is concern she may have dumping syndrome will obtain electrolyte panel to assess sodium, calcium as well as renal function. CBC was obtained to assess H&H and she appears slightly pale. History & Record Review Additional record(s) reviewed:: Prior outpatient record and Prior labs Lab Data Attestation: I reviewed the patient's lab results. Lab results narrative: CBC is marked for anemia with normal indices. Comprehensive metabolic panel is remarkable glucose of 255 with a normal CO2 anion gap. Liver enzymes are normal. Labs: Laboratory Results - last 24 hr 11/18/24 11/18/24 15:27 15:40 WBC 10.0 RBC 4.21 Hgb 11.7 L Hct 35.4 L MCV 84.1 MCH 27.8 MCHC 33.1 RDW Std Deviation 44.9 H RDW Coeff of Delmy 14.6 Plt Count 323 MPV 9.2 Immature Gran % (Auto) 0.300 Neut % (Auto) 71.2 H Lymph % (Auto) 20.8 Grundy % (Auto) 6.2 Eos % (Auto) 1.0 Baso % (Auto) 0.5 Absolute Neuts (auto) 7.1 Absolute Lymphs (auto) 2.07 Nucleated RBC % 0 Sodium 134 Potassium 4.2 Chloride 102 Carbon Dioxide 19.0 L Anion Gap 13 BUN 11 Creatinine 0.64 L Estim Creat Clear Calc 185.40 Est GFR (MDRD) Non-Af 124 BUN/Creatinine Ratio 17.3 Glucose 255 H Calcium 9.0 Total Bilirubin 0.38 AST 19 ALT 17 Alkaline Phosphatase 51 Total Protein 6.5 Albumin 3.4 L Globulin 3.1 Albumin/Globulin Ratio 1.1 [place] 0.71 POC Glucose 88 Treatment and Re-Evaluation :: Since patient is presently asymptomatic and her workup is essentially unremarkable we will discharge to follow-up with her primary care provider. Discharge Plan Triage Chief Complaint: Hypoglycemia ED Provider: Mau Smallwood Dx/Rx/DC Orders Clinical Impression: Paresthesias, Acute hyperglycemia, Bipolar 1 disorder, Gastroparesis, Hypertension, Fatty liver Instructions: ED Paresthesia Prescriptions: No Action hyoscyamine sulfate 0.125 mg tablet 0.125 mg PO BID-QID PRN (Reason: dyspepsia) Qty: 30 0RF (DME) miscellaneous medical supply Misc See Rx Instructions .Route Qty: 1 0RF Rx Instructions: As directed diphenoxylate-atropine 2.5-0.025 mg tablet 1 tab PO TID Qty: 90 0RF lithium carbonate 300 MG capsule 300 [...] mL suspension,extended rel syring 441 mg IM .Q28 DAYS Rx Instructions: 441 mg intramuscularly Q28D; due first week of september metoclopramide HCl [Reglan] 10 mg tablet 10 mg PO Q6H PRN (Reason: nausea and vomiting) Qty: 20 0RF dicyclomine 20 mg tablet 20 mg PO TID PRN (Reason: abdominal pain) Qty: 30 0RF norgestimate-ethinyl estradiol [Grundy-Linyah] 0.25-0.035 mg tablet 1 tab PO DAILY cyanocobalamin (vitamin B-12) 1,000 mcg tablet, sublingual 1,000 mcg sublingual DAILY Qulipta 60 mg tablet 60 mg PO DAILY rizatriptan 10 mg tablet 10 mg PO Q2H PRN (Reason: migraine headache) amlodipine 2.5 mg tablet 2.5 mg PO BID simvastatin 20 mg tablet 20 mg PO QHS pantoprazole 40 mg tablet,delayed release (DR/EC) 40 mg PO QHS lactulose 10 gram/15 mL solution 30 g PO BID PRN (Reason: constipation) Qty: 473 1RF diphenoxylate-atropine [Lomotil] 2.5-0.025 mg tablet 1 tab PO BID PRN (Reason: diarrhea) Qty: 30 2RF metoprolol tartrate 50 mg tablet 100 mg PO BID Qty: 180 3RF polyethylene glycol 3350 [Miralax] 17 gram/dose powder 4 g PO ONCE Qty: 238 0RF Rx Instructions: Mix entire bottle into 64oz of clear liquid for colonoscopy prep spironolactone 25 mg tablet 25 mg PO QDAY Qty: 30 11RF Primary Care Provider: Karuna Lmi Referrals: Karuna Lim, [employer] [Primary Care Provider, Family Practice] - 1 Week Print Language: Citizen [place] Disposition Disposition: Home, Self Care What to do if you have Problems For any increased pain, shortness of breath, bleeding, nausea or vomiting, chestpain, or any unexpected problems, contact your Primary Care Provider. Call [facility] ([phone]) or report to the closest Emergency Room. Call 911 if necessary. 11/18/24 1808 <Electronically signed by Mau Smallwood MD> Cosigner Signature (if applicable): CC: Karuna MCBRIDE [employer] Carina ~ Signed [facility] Work Phone: 1(318) 267-955309-18-2025 Procedure [facility] 10-27-2024 History and physical note Author Andreas Friend [facility] Note Date/Time October 27, 2024 9:54am [facility] Medical Records Department [address] [place] [address] History & Physical Exam 10/27/24 0953 MR#: [id number] Acct: [id number] Name: MARION GUTIERREZ Rep #:[id number] : 1995 29 From: Andreas Oliva DO PCP: Karuna Lim [employer] Status:REG [facility] Location: [place] [address] HPI - General General Date of Admission: 10/27/24 Date of Service: 10/27/24 Chief Complaint: diarrhea HPI Narrative MARION GUTIERREZ, is a 29 F who presents MARION GUTIERREZ, is a 28 F who presents to the office today for follow up. PMH autism, bipolar type 1, PCOS [facility] ED on multiple occasions over the years with N/V, headache, diarrhea, CP. Stool studies for infection have been performed throughout the years with calprotectin, C.Difficile, EP, O/P WNL each time. CT abd/pel 1.14.16 abd pain/diarrhea mild hepatomegaly, homogeneous; splenomegaly; multiple fluid-filled small bowel loops; diverticulosis. Stool 9.22.16 lactoferrin + US RUQ 2.16.16 abd pain hepatomegaly 18.7cm with fatty infiltration. HIDA 4.24.17 EF 88%. When compared to 2.16.16 scan there is continued evidence of duodenal-gastric reflux. GI and hepatology specialists established in 2018 with diarrhea, bloating, abd pain, N/V and diagnosed with IBS-D and GERD. ? [facility] C[facility]ac 12.12.17 without positive findings. EGD 01.03.18 advanced to small bowel noting bile in stomach and mild gastritis. No pathologic changes. US 06.27.18 hepatic measurement 18cm with increased echogenicity. ? EGD 09.08.20 advanced to small bowel noting gastritis, mild. Remaining exam without acute/chronic finding. H.Pylori -. ? Colonoscopy 10.08.20 advanced to TI noting internal hemorrhoids without visual abnormality. Without pathologic changes. [facility] ED visits continue as noted above. US RUQ 10.. abd pain hepatomegaly 19cm with fatty infiltration. US ABD 11.30.21 abd pain hepatomegaly 20.2cm with fatty infiltration; splenomegaly. No ascites. Biochemical workup T3, T4, CBC, CMP, TIBC, iron, ferritin, copper, zinc,selenium without pertinent abnormality. ? TSH H4.91 [facility] ED visit prompting referral 01.24.22 with diffuse abdominal pain and diarrhea. She has had issue with diarrhea for many years and has received a diagnosis of IBS- D. Most recent colonoscopy 2020. Discharged without acute concern with cipro/flagyl. ? Biochemical workup CBC, CMP, lipase without concern. LFT AST H63/ALT H160/ AP57 (AST/ALT ratio 0.39). ? CT abd/pel diffuse hepatomegaly, normal spleen; wall thickening of right colon/hepatic flexure. ? Stool studies lactoferrin, EP, C.Difficile, O/P WNL. Calprotectin, elastase, giardia not run. PCP OV as ED f/u 01.31.2022 with biochemical results TSH H4.77; T4WNL. *[facility] established 02.15.22 following [facility] ED presentation. Marion has had multipleED visits. Clinic presentation she had concern regarding postprandial nausea anddiarrhea with intermittent emesis; feelings of early satiety for several hours resulting in decreased PO intake; left sided abdominal discomfort with frequent stooling with mucous, no blood. Biochemical CMP, CBC, ESR, HIV, ferritin, LDH, coagulation, AMA, ASM, LEN comp, ANCA, hepatitis, CARLA, AFP, celiac, ceruloplasmin, copper, GAME, haptoglobin, XIOMARA, ammonia without pertinent abnormality. A1c H5.9, CRP H4.50, Crohn?s (AMCA, ANCA).? LFT AST 33/ALT H92/AP52 Stool studies lactoferrin, elastase WNL.? Calprotectin H137 ? US and elastography 03.07.22 hepatomegaly 21.5cm with fatty infiltration stiffness measures 11.9kPa; pancreatic increased echogenicity. ? Gastric emptying study 03.15.22 time unable to be calculated. Contact with results; start Zenpep and reglan OV 4 She continues to have difficulty with nausea and loose stools with reduction of severity and frequency. She felt zenpep caused her to have increased flatulence. Reglan not being taken as she thought it was PRN. ? EGD and colonoscopy 08.08.22 EGD non-severe esophagitis, no path changes; gastritis; duodenitis. ? Colonoscopy mildly congested mucosa RS and sigmoid colon, no pathchanges; IC pathology focal acute enteritis, nonspecific. OV 08.29.22 reglan not being taken regularly as she thought it was PRN. Start famotidine ? Biochemical CBC, CMP, D25, T4 without pertinent abnormality ? A1c H6.7, AST H94-ALT H199-AP 75, triglycerides H215, cholesterolH, B12 H1606, TSH H3.75 ? MREnterography 09.19.22 marked mucosal hyperenhancement of short segments of small bowel including TI; limited study r/t underdistention of bowel. Contact 10.10.22 with results, Start budesonide. OV 01.30.23 BM typically normal 1-2/day; notes intermittent loose stools with dairy consumption and constipation occurring weekly with lack of BM for up to two days with abdominal cramping and then hard stools. Continues with [id number] QD. OV 07.10.23 pt reports that she is currently struggling with constipation. She reports having a hard, formed bm every other day; denies blood in her stool. Pt reports stopping Budesonide about 2 months ago and feels her constipation and abdominal cramps have gotten worse. Pt reports that her blood sugar is always high lately and would like some direction / education on that. OV 10.10.23 patient has been having 3 weeks of LLQ shooting pain and dull right sided pain. She also complains of alternating constipation and diarrhea. She hasbeen nauseous and vomiting multiple times per day. She has not been able to keepfood down. She has been taking dicyclomine, tylenol and advil for pain. She has an appointment with endocrinology at the end of September. She also mentions havingvery dark urine, burning and frequency. Colonoscopy 10.24.23 Diverticulosis in the recto-sigmoid colon and in the sigmoid colon. Localized mild inflammation was found in the sigmoid colon secondary to colitis. Biopsied. OV 07.08.24 pt reports continued symptoms, states that for the past few weeks shehas been having diarrhea and fecal incontinence at night; pt reports it does notmatter what she eats. Pt also reports that she is worried her iron could be low. abd MRI 08.07.24 1. There is fatty liver infiltration. There are no focal abnormality seen within the liver. 2. Other findings as noted. [facility] ED 7 pt presents with syncope [facility] ED 8 pt present with N/V/D OV 09.25.24 Pt reports that her symptoms from ER visit continue. Started having diarrhea on Sunday, states stool has been straight acid for the past three days. Reports she has been unable to keep anything down. Colonoscopy is scheduled for 10.27.24 [facility] Medical History Dietary restriction Shortness of breath on exertion History of pain when walking Alcohol use Picking own skin Low iron Fatty liver Gastroparesis Cardiology follow-up encounter Obesity Depression Diabetes GERD (gastroesophageal reflux disease) Irregular heart beat Cellulitis History of echocardiogram Wears glasses Bipolar disorder Anxiety Arthritis Back pain Migraine headache Syncope Non-smoker Bipolar 1 disorder PCOS (polycystic ovarian syndrome) IBS (irritable bowel syndrome) Autism Home Medications ?Medication ?Instructions ?Recorded ?Last Taken ?Type lithium carbonate 300 mg capsule 300 mg PO DAILY Bipol ar 04/05/17 09/27/24 History ferrous sulfate 325 mg (65 mg 325 mg PO QODAY suppleme nt 01/24/22 10/24/24 History iron) tablet (FeroSul) lithium carbonate 600 mg capsule 600 mg PO QHS mental health 01/24/22 09/26/24 History aripiprazole lauroxil 441 mg/1.6 441 mg IM .Q28 DAYS [facility] 12/18/22 09/24/24 History mL suspension, ext.rel. IM syringe ([place]) cholecalciferol (vitamin D3) 25 25 mcg PO DAILY vitami n 12/18/22 09/26/24 History mcg (1,000 unit) tablet (Vitamin D3) imipramine HCl 25 mg tablet 25 mg PO DAILY mental heal 12/18/22 09/26/24 History pantoprazole 40 mg tablet,delayed 40 mg PO QHS 4 09/26/24 History release simvastatin 20 mg tablet 20 mg PO QHS 06/03/23 History lactulose 10 gram/15 mL oral 30 g (45 mL) PO BID PRN 0 09/28/23 10/21/23 Rx solution constipation #473 mL hyoscyamine sulfate 0.125 mg tablet 0.125 mg PO BID-QI D PRN dyspepsia 10/10/23 10/21/23 Rx #30 tabs diphenoxylate-atropine 2.5 1 tab PO BID PRN diarrhea # 30 tabs 10/29/23 Unknown Rx mg-0.025 mg tablet (Lomotil) dicyclomine 20 mg tablet 20 mg PO TID PRN abdominal p ain 05/08/24 09/23/24 Rx #30 tabs metoclopramide HCl 10 mg tablet 10 mg PO Q6H PRN nause a and 05/08/24 09/26/24 Rx (Reglan) vomiting #20 tabs miscellaneous medical supply #1 ea 05/29/24 Unknown Rx metoprolol tartrate 50 mg tablet 100 mg (2 x 50 mg) PO BID #180 tabs 07/21/24 09/27/24 10:00 Rx amlodipine 2.5 mg tablet 2.5 mg PO BID 09/04/2409/27 10:00 History atogepant 60 mg tablet (Qulipta) 60 mg PO DAILY 09/27/24 History cyanocobalamin (vitamin B-12) 1,000 mcg sublingual YI LY 09/04/24 09/26/24 History 1,000 mcg sublingual tablet norgestimate 0.25 mg-ethinyl 1 tab PO DAILY 09/04/24 U nknown History estradiol 0.035 mg tablet (Grundy-Linyah) rizatriptan 10 mg tablet 10 mg PO Q2H PRN migraine he adache 09/04/24 Unknown History diphenoxylate-atropine 2.5 1 tab PO TID #90 tabs 09/2509/27/24 10:00 Rx mg-0.025 mg tablet polyethylene glycol 3350 17 4 g PO ONCE constipation # 238 grams 10/14/24 Unknown Rx gram/dose oral powder (Miralax) Allergy/AdvReac Type Severity Reaction Status Date / Time ondansetron (From Zofran (as Allergy Anaphylaxis Verified 10/27/24 09:49 hydrochloride)) pollen extracts Allergy Hives Verified 10/24/24 10:45 metformin AdvReac Mild Nausea/Vom/ Verified 10/27/24 09:49 Diarrhea escitalopram (From Lexapro) AdvReac Other Verified 10/24/24 10:45 lactase (From Dairy Aid) AdvReac Upset Verified 10/24/24 10:45 Stomach Family History Mother Uterine cancer Other Asthma [...] home: Yes additional social history: single ROS Constitutional Constitutional: Denies fatigue, fever(s), poor appetite, weight gain or weight loss Gastrointestinal Gastrointestinal: Denies belching, bloating, change in bowel habits, change in stool character, chewing difficulty, coffee ground emesis, constipation, cramping, diarrhea, dyspepsia, dysphagia, early satiety, excessive flatus, fecalincontinence, heartburn, hematemesis, hematochezia, hemorrhoids, loose stools, melena, nausea, odynophagia, rectal bleeding, tenesmus, vomiting or weight changes Physical Exam Const alert, oriented x3, no apparent distress and healthy appearing General Appearance: cooperative GI normal to inspection, nondistended, normoactive bowel sounds, soft to palpation,non-tender and non-distended Percussion: normal to percussion Rectal Exam: deferred Assessment & Plan Assessment/Plan (1) LUQ abdominal pain: (2) Abnormal CT of the abdomen: (3) Nausea vomiting and diarrhea: PLAN: Assessment and Plan Assessment and Plan (1) Acute diarrhea: Status: Acute Plan: I think that the diarrhea is mostly acute or chronic associated with a very poordiet since sugar. I called her dump grader and she is okay with abnormal GLP-1 agonist. Also there is show post Lomotil therapy. (2) Palpitations: Status: Acute Plan: She is getting palpitations or syncope she has been checked for adrenal insufficiency. We will draw labs today including a random cortisol and 6 AM cortisol with ACTH. Will also check for urine catecholamines along with checking serum catecholamines with Chromogranin A. (3) Gastroparesis: Status: Chronic Plan: Frequently study shows that she has severe gastroparesis. She has taken Reglan therapy without any side effects such as tardive dyskinesia but she stopped taking it because she thought it was only a as needed medicine. Her gastric getting study displayed a time over 500 minutes. I told her mother that I suspect it is from her psychiatric medicines that she takes on a daily basis forbipolar disorder. I will give her a scheduled prescription to take 5 mg p.o. 3 times daily for approximately 1 month. I explained to her that most of the sideeffects such as tardive dyskinesia do occur in people that have pre-existing psychiatric condition to her on pre- existing psychiatric medicines. However in order to keep her out of the hospital I think we should try and treat her gastroparesis. We also talked about a gastroparesis diet and other things that she can do on a daily basis including good blood sugar control to promote gastric emptying. She says that she is having intermittent diarrhea stools are not want to give her Linzess or Amitiza for her nausea vomiting and gastroparesis because it can make her diarrhea worse. (4) Crohn's disease: Status: Chronic Qualifiers: Gastrointestinal tract location: small intestine Digestive disease complication type: without complication Qualified Code(s): K50.00 - Crohn's disease of small intestine without complications Plan: Her MRI enterography did show inflammation in the small bowel possibly consistent with inflammatory bowel disease. We put her on budesonide therapy at3 mg a day and she is actually having normal bowel movements without fecal incontinence, urgency. We talked about eating a better diet and particularly a higher fiber diet and less in simple sugars and carbohydrates. She does have anappointment with dump grader. She said she will address it with dump grader but does not want to see a dietitian at this time. (5) Fatty liver: Status: Chronic Plan: INDINGS: Liver: Diffusely echogenic suggesting fatty infiltration. Hepatomegaly. The liver measures 21.5 cm. Gallbladder: No stones sludge wall thickening or tenderness. Gallbladder wall measures 2 mm. Common bile duct: Normal measuring 4 mm. . Pancreas: Normal Other: Visualized portions of the right kidney are unremarkable. No right upperquadrant ascites. US/Abdomen Limited IMPRESSION: Fatty infiltration of the liver. Hepatomegaly. LOWER THORAX: Unremarkable. Lung bases are clear. No cardiomegaly. No significant pericardial effusion. ABDOMEN: LIVER: Stable hepatosplenomegaly. GALLBLADDER AND BILE DUCTS: Unremarkable. No calcified gallstones. No gallbladder distention or wall edema. No intra- or extrahepatic biliary ductal dilation. PANCREAS: Unremarkable. No focal cystic or solid mass. SPLEEN: See above. ADRENALS: Unremarkable. No nodules. KIDNEYS AND URETERS: See below. STOMACH AND BOWEL: Moderate gas and mild fluid distending the stomach. Mild scattered fluid and gas in the small bowel, minimal mucosal enhancement in terminal ileal loops. Moderate gas and stool in some of the proximal half of the colon, mild gas and stool in the distal colon. Focal collapsed and questionably wall thickening short segment of hepatic flexure of colon, cannot exclude neoplasm, best seen on coronal images 58 through 64. Mildly thick-walled almost collapsed appearance of some of the descending colon. PELVIS: APPENDIX: Normal appendix is best seen on coronal images.. BLADDER: Minimally distended urinary bladder, minimal wall thickening likely due to nondistention. REPRODUCTIVE: Unremarkable as visualized. No mass. ABDOMEN and PELVIS: INTRAPERITONEAL SPACE: See below. BONES/JOINTS: Mildly larger appearance of a hypodense-cystic lesion of 2 cm x 1.6 cm x 2.4 cm adjacent to posterior 11th rib, liver and right kidney. This appears separate from liver and kidney and likely arising from peritoneal margin. Stable appearance of extensive thoracolumbar stabilization rods and straightening of the usual curvature. No suspicious lytic or blastic abnormality. SOFT TISSUES: Unremarkable. No discrete abdominal or pelvic wall hernia. VASCULATURE: Unremarkable. Abdominal aorta is non-dilated. LYMPH NODES: Mild mesenteric adenopathy is similar to prior exam. I will get MRI of the abdomen pelvis and she will need repeat colonoscopy as herlast colonoscopy had a very poor prep. 10/27/24 0954 <Electronically signed by Andreas Oliva DO> Cosigner Signature (if applicable): CC: BERTHA Campuzano [facility] Beam~ Signed [facility] Work Phone: [phone]) 300-888709-08-[address] [facility] Medical Records Department [address] [place] [address] Colonoscopy Report MR#: [id number] Acct: [id number] Name: MARION GUTIERREZ Rep #:[id number] : 1995 29 From: Andreas Oliva DO PCP: Karuna Lim [facility] [employer] AGENT-C Status:REG [facility] Patient Name: Marion Gutierrez Procedure Date: 10/27/2024 10:34 AM Date of : 1995 Age: 29 Procedure: Colonoscopy Indications: Generalized abdominal pain, Chronic diarrhea Providers: Andreas Oliva DO Medicines: Monitored Anesthesia Care Patient Profile: This is a 29 year old female. Refer to note in patient chart for documentation of history and physical. Last Colonoscopy: within the past year. Complications: No immediate complications. Procedure: Pre-Anesthesia Assessment: - Prior to the procedure, a History and Physical was performed, and patient medications and allergies were reviewed. The patient is competent. The risks and benefits of the procedure and the sedation options and risks were discussed with the patient. All questions were answered and informed consent was obtained. Patient identification and proposed procedure were verified by the physician in the pre-procedure area. Mental Status Examination: alert and oriented. Airway Examination: normal oropharyngeal airway and neck mobility. Respiratory Examination: clear to auscultation. CV Examination: normal. Prophylactic Antibiotics: The patient does not require prophylactic antibiotics. Prior Anticoagulants: The patient has taken no anticoagulant or antiplatelet agents except for NSAID medication. ASA Grade Assessment: II - A patient with mild systemic disease. After reviewing the risks and benefits, the patient was deemed in satisfactory condition to undergo the procedure. The anesthesia plan was to use monitored anesthesia care (MAC). Immediately prior to administration of medications, the patient was re-assessed for adequacy to receive sedatives. The heart rate, respiratory rate, oxygen saturations, blood pressure, adequacy of pulmonary ventilation, and response to care were monitored throughout the procedure. The physical status of the patient was re-assessed after the procedure. After I obtained informed consent, the scope was passed under direct vision. Throughout the procedure, the patient's blood pressure, pulse, and oxygen saturations were monitored continuously. The Colonoscope was introduced through the anus and advanced to the cecum, identified by appendiceal orifice and ileocecal valve. The colonoscopy was performed without difficulty. The patient tolerated the procedure well. The quality of the bowel preparation was adequate. The ileocecal valve, appendiceal orifice, and rectum were photographed. Scope In: 10:51:39 AM Scope Withdrawal Time 0 hours 11 minutes 30 seconds Scope Out: 11:05:42 AM Total Procedure Duration Time 0 hours 14 minutes 3 seconds Findings: The perianal and digital rectal examinations were normal. An area of mildly congested mucosa was found in the entire colon. Biopsies were taken with a cold forceps for histology. Verification of patient identification for the specimen was done. Estimated blood loss was minimal. A few small-mouthed diverticula were found in the recto-sigmoid colon and sigmoid colon. The exam was otherwise without abnormality on direct and retroflexion views. Impression: - Congested mucosa in the entire examined colon. Biopsied. - Diverticulosis in the recto-sigmoid colon and in the sigmoid colon. - The examination was otherwise normal on direct and retroflexion views. Recommendation: - Discharge patient to home. - Resume previous diet. - Continue present medications. - Await pathology results. - Repeat colonoscopy in 5 years for surveillance based on pathology results. Procedure Code(s): --- Professional --- 33190, Colonoscopy, flexible; with biopsy, single or multiple CPT copyright 2021 [employer]. All rights reserved. The codes documented in this report are preliminary and upon autism specialist review may be revised to meet current compliance requirements. Andreas Oliva DO 10/27/2024 11:15:36 AM This report has been signed electronically. Number of Addenda: 0 Note Initiated On: 10/27/2024 10:34 AM 10/27/24 1115 Date _ Andreas Oliva DO Cosigner Signature: Date (if indicated) CC: Andreas Oliva DO; Karuna BAZAN Beam ~ Date Dictated: 10/27/24 1034 Date Transcribed: Trestle Mainternance Laborer: SKY Signed [facility]09-08-[address] [facility] Medical Records Department [facility] [place] [address] Provation Physician Letter MR#: [id number] Acct: [id number] Name: MARION GUTIERREZ Rep #:[id number] : 1995 29 From: Andreas Oliva DO PCP: Karuna Lim [employer] AGENT-C Status:REG [facility] 10/27/2024 Karuna Lim Aerosol Line Operator, Aerosol Line Operator-c Re : Colonoscopy procedure for Marion Gutierrez Dear Carina This procedure was performed on Sunday, October 27, 2024. My impressions and recommendations are as follows: Impressions : - Congested mucosa in the entire examined colon. Biopsied. - Diverticulosis in the recto-sigmoid colon and in the sigmoid colon. - The examination was otherwise normal on direct and retroflexion views. Recommendations : - Discharge patient to home. - Resume previous diet. - Continue present medications. - Await pathology results. - Repeat colonoscopy in 5 years for surveillance based on pathology results. My findings are described in the full procedure note, which is enclosed. If I can be of further assistance, please feel free to contact me at . Sincerely, Andreas Oliva DO 10/27/2024 11:15:36 AM This report has been signed electronically. 10/27/241114 Date _ Andreas Oliva DO Cosigner Signature: Date (if indicated) CC: Andreas Oliva DO; Karuna MCBRIDE [employer]-C Beam ~ Date Dictated: 10/27/24 1034 Date Transcribed: Trestle Mainternance Laborer: SKY Signed [facility]09-08-[address] [facility] Medical Records Department [address] [place] [address] Anesthesia Postop Eval I 10/27/24 1114 MR#: [id number] Acct: [id number] Name: MARION GUTIERREZ Rep #:[id number] : 1995 29 From: Collin Lin PCP: Karuna Lim [facility] [employer]-C Status:REG SD Y Race: C Location: [place] [address] Anesthesia: Postop Eval I Current Vital Signs Temperature: 99 F Pulse Rate: 74 Blood Pressure: 133/87 Respiratory Rate: 20 Pulse Ox: 100 Oxygen Delivery Method: Room Air Assessment Airway patent: Yes Spontaneous unlabored respirations: Yes Mental status: Asleep nausea: No Vomiting: No Anesthesia Complication: No Fluid Hydration Crystalloid volume administer (ml): 500 Total IV fluid infused: 500 Progress Note Anesthesia document: Postop Eval 1 completed: Yes 10/27/24 1115 > Date _ Collin Lin Cosigner Signature: Date CC: ~ Signed [facility]09-08-[address] [facility] Medical Records Department [address] [place] [address] Pre-Anesthesia Evaluation 10/27/24 1043 MR#: [id number] Acct: [id number] Name: MARION GUTIERREZ Rep #:[id number] : 1995 29 From: Moe Masterson PCP: Karuna Lim [facility] [employer]-C Status:REG SD Y Race: C Location: [place] [address] ASA Classification* ASA Classification ASA Classification: 3 Assessment & Plan Anesthesia* Anesthesia Assessment Anesthesia Assessment: Discussed sedation and/or anesthesia options, risks, benefits, and alternatives with patient/parents/legal guardian/POA. Questions invited. The patient/parents/legal guardian/POA seems to understand and agrees to proceedwith anesthesia plan. Reviewed the physical assessment, medical history, allergy history and patient home medications list prior to surgery/procedure/anesthetic and documented any changes. Performed airway and anesthesia risk assessments. Anesthesia Type Anesthesia Type: MAC History Source History Obtained from:: Patient and Chart Anesthesia Focused Assessment* Temperature: 98 F Pulse Rate: 88 Blood Pressure: 147/98 Respiratory Rate: 16 Pulse Ox: 100 Oxygen Delivery Method: Room Air Airway Assessment Mouth opens: >3 cm Mallampati Score: II Teeth Condition: Chipped/Broken Neck Range of motion (ROM): Full ROM Labs Anesthesia Preop lab: CBC WBC 8.2 K/mm3 (4.4-11.0) 10/24/24 15:16 10/24/24 RBC 4.58 M/mm3 (4.2-5.4) 10/24/24 15:16 10/24/24 Hgb 12.6 g/dL (12.0-15.0) 10/24/24 15:16 10/24/24 Hct 38.0 % (37-47) 10/24/24 15:16 10/24/24 Plt Count 367 K/mm3 (150-450) 10/24/24 15:16 10/24/24 CHEMISTRY Potassium 3.6 mmol/L (3.3-5.1) 10/24/24 15:16 10/24/24 Sodium 141 mmol/L (133-145) 10/24/24 15:16 10/24/24 Magnesium 2.1 mg/dL (1.5-2.2) 09/04/24 21:26 09/04/24 Phosphorus 3.3 mg/dL (2.5-4.9) 11/30/21 07:50 11/30/21 BUN 10 mg/dL (4-19) 10/24/24 15:16 10/24/24 Creatinine 0.68 mg/dL (0.70-1.20) L 10/24/24 15:16 Glucose 83 mg/dL (70-99) 10/24/24 15:16 10/24/24 POC Glucose 90 mg/dL (74-106) 10/24/23 11:13 10/24/23 TSH 2.310 uIU/mL (0.300-4.200) 05/23/24 08:30 04/0 06/13 COAG PT 13.7 SECONDS (11.7-14.9) 02/15/22 11:18 Urine Test Negative Negative 10/27/24 09:56 10/27/24 Pre-Assessment Diagnosis/Proposed Procedure Planned Operative Procedure(s): CSCOPE Anesthesia History Anesthesia History - home health manager: Anesthesia History - home health manager Hx Hospitalization No 10/24/24 10:50 Any Problems With Anesthesia Yes: N,V 10/24/24 10:50 Cholinesterase deficiency No 10/24/24 10:50 You/Your Family Experience No 10/24/24 10:50 fever (hyperthermia) with Relationship Recent Exposure to Contagious No 10/27/24 10:07 Disease Does patient have nerve No 10/24/24 10:50 stimulator Patient instructed to have device shut off --Does patient have Pacemaker No 10/27/24 10:07 or ICD? When Was Last Pacemaker Check QUESTION #4 FULL TEXT: You/Your Family Experience fever (hyperthermia) with Anesthesia Last Oral Intake Last Oral intake: Last Oral Intake NPO since 06:40 10/27/24 10:07 Meds taken in AM with sips of No 10/27/24 10:07 water? Meds patient instructed to take am of surgery PONV PONV - home health manager: PONV - home health manager Female Yes 10/24/24 10:50 HX of Motion Sickness Yes 10/24/24 10:50 HX of N/V After Surgery Yes 10/24/24 10:50 Non-Smoker Yes 10/24/24 10:50 Duration of Surgery greater No 10/24/24 10:50 than 60 minutes Number of Risk Factors 4 10/24/24 10:50 PONV Score Severe Risk 10/24/24 10:50 Height & Weight Height & Weight: Anesthesia: Height & Weight Height 5 ft 6 in 10/27/24 10:07 Weight: 130 kg 10/27/24 10:07 Body Mass Index (BMI) 46.2 10/27/24 10:07 Respiratory Assessment Respiratory Assessment - home health manager: Respiratory Tract Infection Hx - home health manager Hx Respiratory Tract Infection No 10/24/24 10:50 STOP Sleep Apnea STOP Sleep Apnea - home health manager: STOP Sleep Apnea - home health manager Hx Hypertension Yes: CONTROLLED WITH MED 10/24/24 10:50 Hx Sleep Apnea No 10/24/24 10:50 CPAP BIPAP Do you snore loudly (louder No 10/24/24 10:50 than talking or can be heard Do you often feel tired/ No 10/24/24 10:50 fatigued/ sleepy during daytime? Has anyone observed you stop No 10/24/24 10:50 breathing during sleep? STOP Results Negative 10/24/24 10:50 QUESTION #5 FULL TEXT : Do you snore loudly (louder than talking or can be heard through closeddoors)? 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 Specify any problems Hx of Preganancy in last 3 No 10/24/24 10:50 Months Nurse Filling Out Transfusion DSCHRIBER 10/24/24 10:50 & Questions: Date: 10/24/24 10/24/24 10:50 Time: 10:52 10/24/24 10:50 Patient unable to answer at this time (ie. confused, unrespo /Reproduction History /Reproductive History - home health manager: /Reproductive Hx- home health manager Hx Now No 10/24/24 10:50 Gestational Age (in weeks): EDC: Hx Hx Para Hx Section SAB No 10/24/24 10:50 Active Medications Active Medications: Current Medications Generic Name Dose Route Start Last Admin Trade Name Freq PRN Reason Stop Dose Admin Lactated Ringer's 1,000 mls @ 15 mls/hr 10/27/24 10:00 IV .Q48H TORIN PFSH Medical History Dietary restriction Shortness of breath on exertion History of pain when walking Alcohol use Picking own skin Low iron Fatty liver Gastroparesis Cardiology follow-up encounter Obesity Depression Diabetes GERD (gastroesophageal reflux disease) Irregular heart beat Cellulitis History of echocardiogram Wears glasses Bipolar disorder Anxiety Arthritis Back pain Migraine headache Syncope Non-smoker Bipolar 1 disorder PCOS (polycystic ovarian syndrome) IBS (irritable bowel syndrome) Autism Home Medications ?Medication ?Instructions ?Recorded ?Last Taken ?Type lithium carbonate 300 mg capsule 300 mg PO DAILY Bipol ar 04/05/17 09/27/24 History ferrous sulfate 325 mg (65 mg 325 mg PO QODAY suppleme nt 01/24/22 10/24/24 History iron) tablet (FeroSul) lithium carbonate 600 mg capsule 600 mg PO QHS mental health 01/24/22 09/26/24 History aripiprazole lauroxil 441 mg/1.6 441 mg IM .Q28 DAYS m [facility] 12/18/22 09/24/24 History mL suspension, ext.rel. IM syringe ([place]ristada) cholecalciferol (vitamin D3) 25 25 mcg PO DAILY vitami n 12/18/22 09/26/24 History mcg (1,000 unit) tablet (Vitamin D3) imipramine HCl 25 mg tablet 25 mg PO DAILY mental [facility] 12/18/22 09/26/24 History pantoprazole 40 mg tablet,delayed 40 mg PO QHS 4 09/26/24 History release simvastatin 20 mg tablet 20 mg PO QHS 06/03/23 History lactulose 10 gram/15 mL oral 30 g (45 mL) PO BID PRN 0 09/28/23 10/21/23 Rx solution constipation #473 mL hyoscyamine sulfate 0.125 mg tablet 0.125 mg PO BID-QI D PRN dyspepsia 10/10/23 10/21/23 Rx #30 tabs diphenoxylate-atropine 2.5 1 tab PO BID PRN diarrhea # 30 tabs 10/29/23 Unknown Rx mg-0.025 mg tablet (Lomotil) dicyclomine 20 mg tablet 20 mg PO TID PRN abdominal p ain 05/08/24 09/23/24 Rx #30 tabs metoclopramide HCl 10 mg tablet 10 mg PO Q6H PRN nause a and 05/08/24 09/26/24 Rx (Reglan) vomiting #20 tabs miscellaneous medical supply #1 ea 05/29/24 Unknown Rx metoprolol tartrate 50 mg tablet 100 mg (2 x 50 mg) PO BID #180 tabs 07/21/24 09/27/24 10:00 Rx amlodipine 2.5 mg tablet 2.5 mg PO BID 09/04/2409/27 10:00 History atogepant 60 mg tablet (Qulipta) 60 mg PO DAILY 09/27/24 History cyanocobalamin (vitamin B-12) 1,000 mcg sublingual YI LY 09/04/24 09/26/24 History 1,000 mcg sublingual tablet norgestimate 0.25 mg-ethinyl 1 tab PO DAILY 09/04/24 U nknown History estradiol 0.035 mg tablet (Grundy-Linyah) rizatriptan 10 mg tablet 10 mg PO Q2H PRN migraine he adache 09/04/24 Unknown History diphenoxylate-atropine 2.5 1 tab PO TID #90 tabs 09/2509/27/24 10:00 Rx mg-0.025 mg tablet polyethylene glycol 3350 17 4 g PO ONCE constipation # 238 grams 10/14/24 Unknown Rx gram/dose oral powder (Miralax) Allergy/AdvReac Type Severity Reaction Status Date / Time ondansetron (From Zofran (as Allergy Anaphylaxis Verified 10/27/24 10:06 hydrochloride)) pollen extracts Allergy Hives Verified 10/27/24 10:06 metformin AdvReac Mild Nausea/Vom/ Verified 10/27/24 10:06 Diarrhea escitalopram (From Lexapro) AdvReac Other Verified 10/27/24 10:06 lactase (From Dairy Aid) AdvReac Upset Verified 10/27/24 10:06 Stomach Family History Mother Uterine cancer Other Asthma [...] at home: Yes additional social history: single Review of Systems (Anesthesia) ROS Narrative System reviewed and no additional complaints, except as documented. 10/27/24 1043 MD> Date _ Moe Marie MD Cosigner Signature: Date CC: ~ Signed [facility]09-08-2025 History and physical note [facility] Medical Records Department [address] [place] [address] History & Physical Exam 10/27/24 0953 MR#: [id number] Acct: [id number] Name: MARION GUTIERREZ Rep #:[id number] : 1995 29 From: Andreas Oliva DO PCP: Karuna Lim Kimi [employer]-C Status:[facility] Location: [place] [address] HPI - General General Date of Admission: 10/27/24 Date of Service: 10/27/24 Chief Complaint: diarrhea HPI Narrative MARION GUTIERREZ, is a 29 F who presents MARION GUTIERREZ is a 28 F who presents to the office today for follow up. PMH autism, bipolar type 1, PCOS [facility] ED on multiple occasions over the years with N/V, headache, diarrhea, CP. Stool studies for infection have been performed throughout the years with calprotectin, C.Difficile, EP, O/P WNL each time. CT abd/pel 1.14.16 abd pain/diarrhea mild hepatomegaly, homogeneous; splenomegaly; multiple fluid-filled small bowel loops; diverticulosis. Stool 11.10.16 lactoferrin + US RUQ 2.16.16 abd pain hepatomegaly 18.7cm with fatty infiltration. HIDA ..17 EF 88%. When compared to 04.06.15 scan there is continued evidence of duodenal-gastric reflux. GI and hepatology specialists established in 2018 with diarrhea, bloating, abd pain, N/V and diagnosed with IBS-D and GERD. ? [facility] 12.12.17 without positive findings. EGD 01.03.18 advanced to small bowel noting bile in stomach and mild gastritis. No pathologic changes. US 06.27.18 hepatic measurement 18cm with increased echogenicity. ? EGD 09.08.20 advanced to small bowel noting gastritis, mild. Remaining exam without acute/chronic finding. H.Pylori -. ? Colonoscopy 10.08.20 advanced to TI noting internal hemorrhoids without visual abnormality. Without pathologic changes. [facility] ED visits continue as noted above. US RUQ 10.8.21 abd pain hepatomegaly 19cm with fatty infiltration. US ABD 11.30.21 abd pain hepatomegaly 20.2cm with fatty infiltration; splenomegaly. No ascites. Biochemical workup T3, T4, CBC, CMP, TIBC, iron, ferritin, copper, zinc,selenium without pertinent abnormality. ? TSH H4.91 [facility] ED visit prompting referral 01.24.22 with diffuse abdominal pain and diarrhea. She has had issuewith diarrhea for many years and has received a diagnosis of IBS-D. Most recent colonoscopy 2020. Discharged without acute concern with cipro/flagyl. ? Biochemical workup CBC, CMP, lipase without concern. LFT AST H63/ALT H160/ AP57 (AST/ALT ratio 0.39). ? CT abd/pel diffuse hepatomegaly, normal spleen; wall thickening of right colon/hepatic flexure. ? Stool studies lactoferrin, EP, C.Difficile, O/P WNL. Calprotectin, elastase, giardianot run. PCP OV as ED f/u 01.31.2022 with biochemical results TSH H4.77; T4WNL. *[facility] established 02.15.22 following [facility] ED presentation. Marion has had multipleED visits. Clinic presentation she had concern regarding postprandial nausea anddiarrhea with intermittent emesis; feelings of early satiety for several hours resulting in decreased PO intake; left sided abdominal discomfort with frequent stooling with mucous, no blood. Biochemical CMP, CBC, ESR, HIV, ferritin, LDH, coagulation, AMA, ASM, ELN comp, ANCA, hepatitis, CARLA, AFP, celiac, ceruloplasmin, copper, GAME, haptoglobin, XIOMARA, ammonia without pertinent abnormality. A1c H5.9, CRP H4.50, Crohn?s (AMCA, ANCA).? LFT AST 33/ALT H92/AP52 Stool studies lactoferrin, elastase WNL.? Calprotectin H137 ? US and elastography 03.07.22 hepatomegaly 21.5cm with fatty infiltration stiffness measures 11.9kPa; pancreatic increased echogenicity. ? Gastric emptying study 03.15.22 time unable to be calculated. Contact with results; start Zenpep and reglan OV 4 She continues to have difficulty with nausea and loose stools with reduction of severityand frequency. She felt zenpep caused her to have increased flatulence. Reglan not being taken as she thought it was PRN. ? EGD and colonoscopy 08.08.22 EGD non-severe esophagitis, no path changes; gastritis; duodenitis. ? Colonoscopy mildly congested mucosa RS and sigmoid colon, no pathchanges; IC pathology focal acute enteritis, nonspecific. OV 7 reglan not being taken regularly as she thought it was PRN. Start famotidine ? Biochemical CBC, CMP, D25, T4 without pertinent abnormality ? A1c H6.7, AST H94-ALT H199-AP 75, triglycerides H215, cholesterolH, B12 H1606, TSH H3.75 ? MREnterography 09.19.22 marked mucosal hyperenhancement of short segments of small bowel including TI; limited study r/t underdistention of bowel. Contact 10.10.22 with results, Start budesonide. OV 01.30.23 BM typically normal 1-2/day; notes intermittent loose stools with dairy consumption andconstipation occurring weekly with lack of BM for up to two days with abdominal cramping and then hard stools. Continues with [id number] QD. OV 07.10.23 pt reports that she is currently struggling with constipation. She reports having a hard, formed bm every other day; denies blood in her stool. Pt reports stopping Budesonide about 2 months ago and feels her constipation and abdominal cramps have gotten worse. Pt reports that her blood sugar is always high lately and would like some direction / education on that. OV 10.10.23 patient has been having 3 weeks of LLQ shooting pain and dull right sided pain. She alsocomplains of alternating constipation and diarrhea. She hasbeen nauseous and vomiting multiple times per day. She has not been able to keepfood down. She has been taking dicyclomine, tylenol and advil for pain. She has an appointment with endocrinology at the end of September. She also mentions havingvery dark urine, burning and frequency. Colonoscopy .06.12 Diverticulosis in the recto-sigmoid colon and in the sigmoid colon. Localized mild inflammation was found in the sigmoid colon secondary to colitis. Biopsied. OV 07.08.24 pt reports continued symptoms, states that for the past few weeks shehas been having diarrhea and fecal incontinence at night; pt reports it does notmatter what she eats. Pt also reports that she is worried her iron could be low. [facility] MRI 08.07.24 1. There is fatty liver infiltration. There are no focal abnormality seen within the liver. 2. Other findings as noted. [facility] ED 7 pt presents with syncope [facility] ED 8.3.25 pt present with N/V/D OV 8.7.25 Pt reports that her symptoms from ER visit continue. Started having diarrhea on Sunday, states stool has been straight acid for the past three days. Reports she has been unable to keep anything down. Colonoscopy is scheduled for 10.27.24 [facility] Medical History Dietary restriction Shortness of breath on exertion History of pain when walking Alcohol use Picking own skin Low iron Fatty liver Gastroparesis Cardiology follow-up encounter Obesity Depression Diabetes GERD (gastroesophageal reflux disease) Irregular heart beat Cellulitis History of echocardiogram Wears glasses Bipolar disorder Anxiety Arthritis Back pain Migraine headache Syncope Non-smoker Bipolar 1 disorder PCOS (polycystic ovarian syndrome) IBS (irritable bowel syndrome) Autism Home Medications ?Medication ?Instructions ?Recorded ?Last Taken ?Type lithium carbonate 300 mg capsule 300 mg PO DAILY Bipol ar 04/05/17 09/27/24 History ferrous sulfate 325 mg (65 mg 325 mg PO QODAY suppleme nt 01/24/22 10/24/24 History iron) tablet (FeroSul) lithium carbonate 600 mg capsule 600 mg PO QHS mental health 01/24/22 09/26/24 History aripiprazole lauroxil 441 mg/1.6 441 mg IM .Q28 DAYS [facility] 12/18/22 09/24/24 History mL suspension, ext.rel. IM syringe ([place]ada) cholecalciferol (vitamin D3) 25 25 mcg PO DAILY vitami n 12/18/22 09/26/24 History mcg (1,000 unit) tablet (Vitamin D3) imipramine HCl 25 mg tablet 25 mg PO DAILY mental [facility] 12/18/22 09/26/24 History pantoprazole 40 mg tablet,delayed 40 mg PO QHS 4 09/26/24 History release simvastatin 20 mg tablet 20 mg PO QHS 06/03/23 History lactulose 10 gram/15 mL oral 30 g (45 mL) PO BID PRN 0 09/28/23 10/21/23 Rx solution constipation #473 mL hyoscyamine sulfate 0.125 mg tablet 0.125 mg PO BID-QI D PRN dyspepsia 10/10/23 10/21/23 Rx #30 tabs diphenoxylate-atropine 2.5 1 tab PO BID PRN diarrhea # 30 tabs 10/29/23 Unknown Rx mg-0.025 mg tablet (Lomotil) dicyclomine 20 mg tablet 20 mg PO TID PRN abdominal p ain 05/08/24 09/23/24 Rx #30 tabs metoclopramide HCl 10 mg tablet 10 mg PO Q6H PRN nause a and 05/08/24 09/26/24 Rx (Reglan) vomiting #20 tabs miscellaneous medical supply #1 ea 05/29/24 Unknown Rx metoprolol tartrate 50 mg tablet 100 mg (2 x 50 mg) PO BID #180 tabs 07/21/24 09/27/24 10:00 Rx amlodipine 2.5 mg tablet 2.5 mg PO BID 09/04/2409/27 10:00 History atogepant 60 mg tablet (Qulipta) 60 mg PO DAILY 09/27/24 History cyanocobalamin (vitamin B-12) 1,000 mcg sublingual YI LY 09/04/24 09/26/24 History 1,000 mcg sublingual tablet norgestimate 0.25 mg-ethinyl 1 tab PO DAILY 09/04/24 U nknown History estradiol 0.035 mg tablet (Grundy-Linyah) rizatriptan 10 mg tablet 10 mg PO Q2H PRN migraine he adache 09/04/24 Unknown History diphenoxylate-atropine 2.5 1 tab PO TID #90 tabs 09/2509/27/24 10:00 Rx mg-0.025 mg tablet polyethylene glycol 3350 17 4 g PO ONCE constipation # 238 grams 10/14/24 Unknown Rx gram/dose oral powder (Miralax) Allergy/AdvReac Type Severity Reaction Status Date / Time ondansetron (From Zofran (as Allergy Anaphylaxis Verified 10/27/24 09:49 hydrochloride)) pollen extracts Allergy Hives Verified 10/24/24 10:45 metformin AdvReac Mild Nausea/Vom/ Verified 10/27/24 09:49 Diarrhea escitalopram (From Lexapro) AdvReac Other Verified 10/24/24 10:45 lactase (From Dairy Aid) AdvReac Upset Verified 10/24/24 10:45 Stomach Family History Mother Uterine cancer Other Asthma [...] home: Yes additional social history: single ROS Constitutional Constitutional: Denies fatigue, fever(s), poor appetite, weight gain or weight loss Gastrointestinal Gastrointestinal: Denies belching, bloating, change in bowel habits, change in stool character, chewing difficulty, coffee ground emesis, constipation, cramping, diarrhea, dyspepsia, dysphagia, earlysatiety, excessive flatus, fecalincontinence, heartburn, hematemesis, hematochezia, hemorrhoids, loose stools, melena, nausea, odynophagia, rectal bleeding, tenesmus, vomiting or weight changes Physical Exam Const alert, oriented x3, no apparent distress and healthy appearing General Appearance: cooperative GI normal to inspection, nondistended, normoactive bowel sounds, soft to palpation,non-tender and non-distended Percussion: normal to percussion Rectal Exam: deferred Assessment & Plan Assessment/Plan (1) LUQ abdominal pain: (2) Abnormal CT of the abdomen: (3) Nausea vomiting and diarrhea: PLAN: Assessment and Plan Assessment and Plan (1) Acute diarrhea: Status: Acute Plan: I think that the diarrhea is mostly acute or chronic associated with a very poordiet since sugar. Icalled her dump grader and she is okay with abnormal GLP-1 agonist. Also there is show post Lomotil therapy. (2) Palpitations: Status: Acute Plan: She is getting palpitations or syncope she has been checked for adrenal insufficiency. We will drawlabs today including a random cortisol and 6 AM cortisol with ACTH. Will also check for urine catecholamines along with checking serum catecholamines with Chromogranin A. (3) Gastroparesis: Status: Chronic Plan: Frequently study shows that she has severe gastroparesis. She has taken Reglan therapy without any side effects such as tardive dyskinesia but she stopped taking it because she thought it was only a as needed medicine. Her gastric getting study displayed a time over 500 minutes. I told her mother that I suspect it is from her psychiatric medicines that she takes on a daily basis forbipolar disorder. I will give her a scheduled prescription to take 5 mg p.o. 3 times daily for approximately 1 month. I explained to her that most of the sideeffects such as tardive dyskinesia do occur in people that have pre-existing psychiatric condition to her on pre-existing psychiatric medicines. However in o rder to keep her out of the hospital I think we should try and treat her gastroparesis. We also talked about a gastroparesis diet and other things that she can do on a daily basis including good blood sugar control to promote gastric emptying. She says that she is having intermittent diarrhea stools are not want to give her Linzess or Amitiza for her nausea vomiting and gastroparesis because it can make her diarrhea worse. (4) Crohn's disease: Status: Chronic Qualifiers: Gastrointestinal tract location: small intestine Digestive disease complication type: without complication Qualified Code(s): K50.00 - Crohn's disease of small intestine without complications Plan: Her MRI enterography did show inflammation in the small bowel possibly consistent with inflammatorybowel disease. We put her on budesonide therapy at3 mg a day and she is actually having normal bowel movements without fecal incontinence, urgency. We talked about eating a better diet and particularly a higher fiber diet and less in simple sugars and carbohydrates. She does have anappointment withendocrinologist. She said she will address it with dump grader but does not want to see a dietitian at this time. (5) Fatty liver: Status: Chronic Plan: INDINGS: Liver: Diffusely echogenic suggesting fatty infiltration. Hepatomegaly. The liver measures 21.5 cm. Gallbladder: No stones sludge wall thickening or tenderness. Gallbladder wall measures 2 mm. Common bile duct: Normal measuring 4 mm. . Pancreas: Normal Other: Visualized portions of the right kidney are unremarkable. No right upperquadrant ascites. US/Abdomen Limited IMPRESSION: Fatty infiltration of the liver. Hepatomegaly. LOWER THORAX: Unremarkable. Lung bases are clear. No cardiomegaly. No significant pericardial effusion. ABDOMEN: LIVER: Stable hepatosplenomegaly. GALLBLADDER AND BILE DUCTS: Unremarkable. No calcified gallstones. No gallbladder distention or wall edema. No intra- or extrahepatic biliary ductal dilation. PANCREAS: Unremarkable. No focal cystic or solid mass. SPLEEN: See above. ADRENALS: Unremarkable. No nodules. KIDNEYS AND URETERS: See below. STOMACH AND BOWEL: Moderate gas and mild fluid distending the stomach. Mild scattered fluid and gas in the small bowel, minimal mucosal enhancement in terminal ileal loops. Moderate gas and stool in some of the proximal half of the colon, mild gas and stool in the distal colon. Focal collapsed and questionably wall thickening short segment of hepatic flexure of colon, cannot exclude neoplasm, best seen on coronal images 58 through 64. Mildly thick-walled almost collapsed appearance of some of the descending colon. PELVIS: APPENDIX: Normal appendix is best seen on coronal images.. BLADDER: Minimally distended urinary bladder, minimal wall thickening likely due to nondistention. REPRODUCTIVE: Unremarkable as visualized. No mass. ABDOMEN and PELVIS: INTRAPERITONEAL SPACE: See below. BONES/JOINTS: Mildly larger appearance of a hypodense-cystic lesion of 2 cm x 1.6 cm x 2.4 cm adjacent to posterior 11th rib, liver and right kidney. This appears separate from liver and kidney and likely arising from peritoneal margin. Stable appearance of extensive thoracolumbar stabilization rods and straightening of the usual curvature. No suspicious lytic or blastic abnormality. SOFT TISSUES: Unremarkable. No discrete abdominal or pelvic wall hernia. VASCULATURE: Unremarkable. Abdominal aorta is non-dilated. LYMPH NODES: Mild mesenteric adenopathy is similar to prior exam. I will get MRI of the abdomen pelvis and she will need repeat colonoscopy as herlast colonoscopy had a very poor prep. 10/27/24 8429 Cosigner Signature (if applicable): CC: Andreas Oliva, DO; Karuna [facility] [employer] Beam~ Signed [facility]09-08-2025 [facility]08-28-2025 Instructions* Patient Instructions* Jey Johnson MD - 10/16/2024 10:42 AM EDT Continue control pills as is [facility] NoteHNO ID: [id number] Author: JEY JOHNSON MD Service: ? Author Type: Physician Type: Progress Notes Filed: 10/19/2024 17:36 Note Text: Endocrinology and Metabolism [facility] [place] Follow up note Chief complaint: Evaluation of ovarian hyperandrogenism HPI Marion Gutierrez is a 28 year old female presenting for follow up evaluation of ovarian hyperandrogenism/PCOS. She is accompanied by her mother today Initial visit 10/26/23. QUANG 07/15/24 PMH: She has gastroparesis for the last [...] Chin hair are thinner now than before Interval history: 10/16/24: No new complaints She is on OCPs, has regular cycles. Hirsutism has improved She has a hx of ?gastroparesis due to which I recommended endocrine weight management referral for discussing other options for weight loss but she declined at that time She is seeing GI, Dr. Oliva at [facility], with recommendations for possible initiation of GLP-1 agonist. Recently had a severe episode of diarrhea requiring hospitalization PAST MEDICAL HISTORY: PAST MEDICAL HISTORY Diagnosis [...] visit. ALLERGIES: ALLERGIES Allergen Reactions Ondansetron Anaphylaxis, O (more content not 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[facility]08-28-2025 History of Present illness Narrative* Jey Johnson MD - 10/16/2024 10:25 AM EDT Endocrinology and Metabolism [facility] Follow up note Chief complaint: Evaluation of ovarian hyperandrogenism HPI Marion Gutirerez is a 28 year old female presenting for follow up evaluation of ovarian hyperandrogenism/PCOS. She is accompanied by her mother today Initial visit 10/26/23. QUANG 07/15/24 PMH: She has gastroparesis for the last [...] Chin hair are thinner now than before Interval history: 10/16/24: No new complaints She is on OCPs, has regular cycles. Hirsutism has improved She has a hx of ?gastroparesis due to which I recommended endocrine weight management referral for discussing other options for weight loss but she declined at that time She is seeing GI, Dr. Oliva at [facility], with recommendations for possible initiation of GLP-1 agonist. Recently had a severe episode of diarrhea requiring hospitalization PAST MEDICAL HISTORY: PAST MEDICAL HISTORY Diagnosis [...] Pertinent as per HPI PHYSICAL EXAM BP 120/84 (BP Site: Right Arm, BP Position: Sitting, BP Cuff Size: Large Adult) Pulse 78 Temp 36.7 C (98 F) (Temporal Artery) Resp 22 Wt 131.9 kg (290 lb 12.8 oz) LMP 09/11/2024 (Approximate) SpO2 98% BMI 45.55 kg/m General Appearance: Well appearing, alert, in no acute distress, well-hydrated, obese body habitus Skin: pale thin stretch espinoza on upper abdomen noted, no other skin changes Eyes: Extraocular movements are intact. Neck: Supple, no adenopathy; thyroid symmetric, normal size, no palpable nodules, no bruits Lungs: unlabored breathing on room air Heart: RRR, S1 and S2 normal Abdomen: obese abdomen, no concerning striae as mentioned above Extremities: No deformities, edema, skin discoloration, clubbing or cyanosis. Musculoskeletal: No joint swelling, deformity, or tenderness. Peripheral Pulses: Normal. Neurologic: Gait normal. Reflexes normal and symmetric. PREVIOUS DATA Diagnostic tests reviewed for today's visit: Cortisol and ACTH normal on 07/17/2023 Cortisol, 24 HR UR Free on 07-23-2023 CORTISOL,F/24hr 46 ug/24 hr High 6-42 [facility] CORTISOL,U FREE 16 ug/L Normal [facility] Metanephrine Frac 24 HR UR on 07-23-2023 Metaneph,UR 24H 68 ug/24 hr Normal 36-209 [facility] Metanephrines,U 24 ug/L Normal Undefined [facility] Normetan,UR 24h 522 ug/24 hr High 95-449 [facility] Normetanephrine 183 ug/L Normal Undefined [facility] Catecholamines, 24 UR on 07-20-2023 Dopamine, Urine 580 ug/L Normal [facility] Dopamine,U,24HR 957 ug/24 hr High 0-510 [facility] Epineph.,U,24HR 5 ug/24 hr Normal 0-20 [facility] Epinephrine, U 3 ug/L Normal Undefined [facility] Norepin.,U,24HR 134 ug/24 hr Normal 0-135 [facility] Comment on above: Order Comment: Test(s) [id number], Urine; - Norepinephrine, Ur; [id number]-Yidqjbth, Urinewas developed and its performance characteristicsdetermined by [employer]. It has notbeen cleared or approvedby the Food and Drug Administration. Performed By: #### [id number] ####[facility] [id number] [address] [place]. [place], [place] Norepinephrin,U 81 ug/L Normal [facility] Adrenocorticotropic Hormone on 07-17-2023 ACTH 9.7 pg/mL Normal 7.2-63.3 [facility] CORTISOL SERUM on 07-17-2023 CORTISOL 20.10 ug/dL Normal 3.44-22.45 [facility] Catecholamines, Plasma on 07-17-2023 DOPAMINE <30 Normal 0-48 [facility] EPINEPHRINE <15 Normal 0-62 [facility] NOREPINEPHRINE 429 pg/mL Normal 0-874 [facility] Gastrin, Serum on 07-17-2023 GASTRIN 265 pg/mL High 0-115 [facility] Insulin Level on 07-17-2023 INSULIN,FASTING 93.7 uIU/mL High 2.6-24.9 [facility] Insulin Like Growth Factor on 07-17-2023 SOMATOMEDIN C 122 ng/mL Normal 91-308 [facility] Chromogranin A 206.0 ng/mL Abnormal 0.0-101.8 [facility] Renin/Aldosterone Activity on 07-17-2023 ALD/RENIN RATIO 11.6 Normal 0.0-30.0 [facility] Performed By: #### L3400.1350, L3300.3500, L3300.1800, L3430.0100, L3300.1000, L3300.1050, L3100.4810 ####[facility] [address] [place], [address] ALDOSTERONE,S 45.0 ng/dL High 0.0-30.0 [facility] RENIN, PLASMA 3.873 ng/mL/hr Normal 0.167-5.380 [facility] BUN/CRE 18.1 RATIO Normal 10-20 [facility] CA,Total 9.0 mg/dL Normal 8.5-10.1 [facility] Chloride [Moles/Vol] 110 mmol/L High 98-107 [facility] CO2 [Moles/Vol] 25.0 mmol/L Normal 21.0-32.0 [facility] Creatinine [Mass/Vol] 0.66 mg/dL Normal 0.55-1.02 [facility] Performed By: #### L100.0100, L500.4050, L506.1000, L501.64023, L501.9520, L506.0400, L501.9060 ####[facility] [address] [place], [address] EST GFR - AA 138 mL/min Normal >60 [facility] Performed By: #### L100.0100, L500.4050, L506.1000, L501.97016, L501.9520, L506.0400, L501.9060 ####[facility] [address] [place], [address] GAP 3 Low 5-15 [facility] GFR/1.73 sq M.predicted among non-blacks MDRD (S/P/Bld) [Vol rate/Area] 114 mL/min/(1.73_m2) Normal>60 [facility] Globulin (S) [Mass/Vol] 3.8 g/dL Normal 2.2-4.2 [facility] Glucose [Mass/Vol] 124 mg/dL High 74-106 [facility] Performed By: #### L100.0100, L500.4050, L506.1000, L501.89838, L501.9520, L506.0400, L501.9060 ####[facility] [address] [place], [address] Potassium [Moles/Vol] 4.0 mmol/L Normal 3.5-5.1 [facility] Sodium [Moles/Vol] 138 mmol/L Normal 136-145 [facility] T PROT 7.0 g/dL Normal 6.4-8.2 [facility] Urea nitrogen [Mass/Vol] 12 mg/dL Normal 7-18 [facility] Free T3 on 07-05-2023 Free T3 [Mass/Vol] 2.4 pg/mL Normal 2.18-3.98 [facility] Comment on above: Performed By: #### L100.0100, L500.4050, L506.1000, L501.29097, L501.9520, L506.0400, L501.9060 ####[facility] [address] [place], [address] [place] on 07-05-2023 LI 0.80 mmol/L Normal 0.60-1.20 [facility] T4 Free Direct on 07-05-2023 T4 FREE DIRECT 1.04 ng/dL Normal 0.76-1.46 [facility] Comment on above: Performed By: #### L100.0100, L500.4050, L506.1000, L501.80813, L501.9520, L506.0400, L501.9060 ####[facility] [address] [place], [address] Thyroid Stim Hormone (TSH) on 07-05-2023 TSH 2.10 uIU/mL Normal 0.358-3.74 [facility] Vitamin D,25 Hydroxy on 07-05-2023 Vitamin D 25-OH 30.3 ng/mL Normal [facility] Latest Ref Rng 12/05/2023 Sex Hormone [...] Referral to dietitian given for conservative weight loss, in the past - and did not see much changes in weight with this Exercise, calorie restriction reviewed (Refer to documentation from previous visit for other endocrine related work done done) She asks about managing diabetes, but patient has an A1c of 5.7% in 11/2023, on no medications. I reviewed no indications for management by endocrinology and can be managed by PCP. She had side effects with metformin. Again counseled on diet and exercise for improvement in a1c Follow-up in 6 months I spent a total of 20 minutes on the date of the service which included preparing to see the patient, sodv-bq-vjeg patient care, completing clinical documentation, obtaining and/or reviewing separately obtained history, performing a medically appropriate examination, and independently interpreting r esults (not separately reported). Medical Decision Making: Problems: Moderate: 2+ stable chronic illnesses Risk: Low: Low risk from testing/treatment Medical Decision Making Level: 3 - Low Jey Johnson MD Endocrinology Associate Staff [facility] Endocrinology and Metabolism [place] [phone] documented in this encounterOur [facility] [place] NoteHNO ID: [id number] Author: LAURA CARSON, PhD Service: ? Author Type: Psychologist Type: Progress Notes Filed: 10/15/2024 14:11 Note Text: [facility] DEPARTMENT OF ENDOCRINOLOGY Progress Note October 15, 2024 BILLING CODE:Leonid CPT Code: 3064202 Virtual PSYTX PT AND/FAMILY 45 MINS Time initiated session: 1:15 PM to 2:00 PM Date of First Session: 06/02/24 (initial evaluation) Session #: 3 Collateral Parties Present: none. Virtual Visit yes I have communicated my name and active licensure. If seen remotely, The patient's identity and physical location were verified at the time of this visit. Either the patient or their legal motor vehicle representative has been informed of the risks and benefits of -- and alternatives to -- treatment through a remote evaluation and consents to proceed with the evaluation remotely. REASON FOR VISIT Psychological Factors Affecting Morbid Obesity RECENT EVENTS/LIFE CHANGES Psychiatric hospitalization Severe diarrhea Blood sugar fluctuations Upcoming colonoscopy Visit with Employment Law Specialist EATING All over the place. Stated blood sugars are swinging up and down a lot. She is using finger sticks to check. She noted she had a 510 blood sugar 6 weeks ago. Kept a food record for 3-4 days since last visit. Helped her eat less. It computes in my brain how many calories. Helps prevent mindless eating Last night ate cucumbers and hummus and 1 oz of chips. She did this because she couldn't sleep. Blood sugar is dropping at night and she eats. Other times she eats due to not being able to sleep or because she is bored. I get light-headed and clammy when it is low. She noted she gets very thirsty when BS is high. Weight: 269.5 (I lost 12 pounds in 14 days.) Decreased 27 pounds since June Pt stated she is having a lot of diarrhea after eating/drinking dairy, concentrated sweets and SSB. Rice gives me diarrhea. Pt tolerates salmon, non breaded chicken, non breaded pork, yellow squash, [place] cucumbers and hummus. Many years ago she was tested for food allergies - found gluten intolerance and lactose intolerance. Pt stated this was over 20 years ago. Colonoscopy next month to determine if she has Crohn's EXERCISE/PHYSICAL ACTIVITY Walking 15 minutes in the morning (usually by herself 8-8:30) 3 days per week. Exercise videos from Maria Elena Savage that she has tried. Can't do exercises on the floor. Staying close to house when walking because she is having fecal urgency. Incontinence at times - 9 times per month. MENTAL HEALTH Patient mood is: up and down. Pt has payee so she can't spend money unnecessarily. Slept only two hours per night for a week. She had urges to spend money. She said she slept for 32 hours only getting up to urinate. Pt went to [facility] and said she didn't want to live because she was having so much difficulty tolerating foods. She was hungry but couldn't tolerate foods - fecal incontinence. Joycelyn Watt x 4 days 09/29/24. The stay was interesting. Affect is: appropriate Seeing therapist 1-2 times per month - Therapist will leave agency in December Psychiatrist - will see again next week. Psychiatrist is also leaving agency. Patient denies any suicidal or homicidal ideation, plan or intent at this time. Medication Changes: Denies changes in psychiatric medications when hospitalized at [facility] Patient Data Binge Eating Scale (BES) 07/31/2024 09/19/2024 10/13/2024 Eating Habits Checklist Total Score 23 19 19 Patient-reported <18 = minimal binge eating, 18-26 = moderate binge eating, >27 = severe binge eating Generalized Anxiety Disorder Scale (BLANUQITA-7) 07/31/2024 09/19/2024 10/08/2024 BLANQUITA - 7 SCORES Score 10 9 9 8 (0-4) minimal anxiety, (5-9) mild anxiety, (10-14) moderate anxiety, (15-21) severe anxiety Patient Health Questionnaire (PHQ-9) 07/31/2024 09/19/2024 10/08/2024 PHQ-9 Score 10 13 13 10 (0-4) minimal depression, (5-9) mild depression, (10-14) moderate depression, (15-19) moderately severe depression, (20-27) severe depression EDUCATION/INTERVENTION Discussed follow up with providers Importance of self monitoring Praised consistency of PA Assessment: Binge Eating Disorder Bipolar Disorder Generalized Anxiety Disorder Psychological Factors Affecting Morbid Obesity Current Outpatient Medications Medication Sig norgestimate-ethinyl estradiol (MONO-LINYAH) 0.25-0.035 mg tablet Take 1 tablet by mouth once daily. amLODIPine (NORVASC) 2.5 mg tablet Take 2.5 mg by mouth two times a day. Cyanocobalamin 1,000 mcg subl Dissolve 1 tablet under the tongue once daily. dicyclomine (BENTYL) 20 mg tablet Take 20 mg by mouth three times a day as needed. atogepant (QULIPTA) 60 mg tablet Take 60 mg by mouth once daily. cholecalciferol (VITAMIN D3) 1,000 unit tab tablet Take 1,000 Units by mouth once daily. lithium carbonate 600 mg capsule Take 600 (more content not 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 [facility]08-27-[facility] History of Present illness Narrative* Laura Carson, PhD - 10/15/2024 1:04 PM EDT Images from the original note were not included. [facility] DEPARTMENT OF ENDOCRINOLOGY Progress Note October 15, 2024 BILLING CODE:Leonid CPT Code: 3625434 Virtual PSYTX PT &/FAMILY 45 MINS Time initiated session: 1:15 PM to 2:00 PM Date of First Session: 06/02/24 (initial evaluation) Session #: 3 Collateral Parties Present: none. Virtual Visit yes I have communicated my name and active licensure. If seen remotely, The patient's identity and physical location were verified at the time of this visit. Either the patient or their legal motor vehicle representative has been informed of the risks and benefits of -- and alternatives to -- treatment through a remote evaluation and consents to proceed with the evaluation remotely. REASON FOR VISIT Psychological Factors Affecting Morbid Obesity RECENT EVENTS/LIFE CHANGES Psychiatric hospitalization Severe diarrhea Blood sugar fluctuations Upcoming colonoscopy Visit with Employment Law Specialist EATING All over the place. Stated blood sugars are swinging up and down a lot. She is using finger sticks to check. She noted she had a 510 blood sugar 6 weeks ago. Kept a food record for 3-4 days since last visit. Helped her eat less. It computes in my brain how many calories. Helps prevent mindless eating Last night ate cucumbers and hummus and 1 oz of chips. She did this because she couldn't sleep. Blood sugar is dropping at night and she eats. Other times she eats due to not being able to sleep or because she is bored. I get light-headed and clammy when it is low. She noted she gets very thirstywhen BS is high. Weight: 269.5 (I lost 12 pounds in 14 days.) Decreased 27 pounds since June Pt stated she is having a lot of diarrhea after eating/drinking dairy, concentrated sweets and SSB.Rice gives me diarrhea. Pt tolerates salmon, non breaded chicken, non breaded pork, yellow squash, [place] cucumbers and hummus. Many years ago she was tested for food allergies - found gluten intolerance and lactose intolerance. Pt stated this was over 20 years ago. Colonoscopy next month to determine if she has Crohn's EXERCISE/PHYSICAL ACTIVITY Walking 15 minutes in the morning (usually by herself 8-8:30) 3 days per week. Exercise videos Santy Savage that she has tried. Can't do exercises on the floor. Staying close to house when walking because she is having fecal urgency. Incontinence at times - 9 times per month. MENTAL HEALTH Patient mood is: up and down. Pt has payee so she can't spend money unnecessarily. Slept only twohours per night for a week. She had urges to spend money. She said she slept for 32 hours only getting up to urinate. Pt went to [facility] and said she didn't want to live because she was having so much difficulty tolerating foods. She was hungry but couldn't tolerate foods - fecal incontinence. Joycelyn [place] x 4 days 09/29/24. The stay was interesting. Affect is: appropriate Seeing therapist 1-2 times per month - Therapist will leave agency in December Psychiatrist - will see again next week. Psychiatrist is also leaving agency. Patient denies any suicidal or homicidal ideation, plan or intent at this time. Medication Changes: Denies changes in psychiatric medications when hospitalized at [facility] Patient Data Binge Eating Scale (BES) 07/31/2024 09/19/2024 10/13/2024 Eating Habits Checklist Total Score 23 19 19 Patient-reported <18 = minimal binge eating, 18-26 = moderate binge eating, >27 = severe binge eating Generalized Anxiety Disorder Scale (BLANQUITA-7) 07/31/2024 09/19/2024 10/08/2024 BLANQUITA - 7 SCORES Score 10 9 9 8 (0-4) minimal anxiety, (5-9) mild anxiety, (10-14) moderate anxiety, (15-21) severe anxiety Patient Health Questionnaire (PHQ-9) 07/31/2024 09/19/2024 10/08/2024 PHQ-9 Score 10 13 13 10 (0-4) minimal depression, (5-9) mild depression, (10-14) moderate depression, (15-19) moderately severe depression, (20-27) severe depression EDUCATION/INTERVENTION Discussed follow up with providers Importance of self monitoring Praised consistency of PA Assessment: Binge Eating Disorder Bipolar Disorder Generalized Anxiety Disorder Psychological Factors Affecting Morbid Obesity Current Outpatient Medications Medication Sig norgestimate-ethinyl estradiol (MONO-LINYAH) 0.25-0.035 mg tablet Take 1 tablet by mouth once daily. amLODIPine (NORVASC) 2.5 mg tablet Take 2.5 mg by mouth two times a day. Cyanocobalamin 1,000 mcg subl Dissolve 1 tablet under the tongue once daily. dicyclomine (BENTYL) 20 mg tablet Take 20 mg by mouth three times a day as needed. atogepant (QULIPTA) 60 mg tablet Take 60 mg by mouth once daily. cholecalciferol (VITAMIN D3) 1,000 unit tab tablet [...] No current facility-administered medications for this visit. Not taking medication for diabetes, Took Victoza in the past. NEXT STEPS/GOALS Walk Away the Pounds Schedule with RD Follow up December 22 at 9:30 am virtually Laura Carson, PhD Psychologist documented in this encounterOur Lady Of [facility] [place]-14-2025 Instructions* Patient Instructions* Mcintosh, Maria Elena, Natural Developer - 10/02/2024 2:02 PM EDT Initial Exercise Prescription: F - Frequency I - Intensity T - Time T - Type F -1-3d/wk, any additional physical activity is a BONUS!!! I - Listen to your body- Feel like you are working, but do not over do it! T - Videos will vary-Strive for quality exercise minutes on your designated exercise days. T - Videos Try planning out your exercise each week, either on Sunday or Sunday. This will help with consistency. Try to be as specific as possible when writing down your exercise (type, time, how long). Make sure you are eating enough protein- our body needs protein to build and repair tissues, so if you aren't eating enough, your muscles won't have the material they need to grow. A low protein dietcan also hinder your weight-loss goals, because more muscle means a higher metabolism, which means it takes more calories to maintain the same weight. If you are not getting enough protein in your diet, you will have less lean tissue, so it won't take as many calories to maintain your weight. Hydration Hacks: https://www.everydayhealth.com/dehydration/pfpmohidi-ullum-tfol-aogq-fmv-faynr-m ore-water/ H2O Recommendations: https://www.medicalnewstoday.com/articles/652269#during-exercise\ Videos: 9-minute HIIT Workout For Beginners to Start Your Fitness Journey- this video seems like a great beginner one!! https://www.Gaia Metric[employer]e.com/watch?v=aTHx0vcQqLG 10 MIN FULL BODY SWEAT SESH (no jumping, no equipment) https://www.Gaia Metric[employer]e.com/watch?v=YOvgKQBD6jV MOOD BOOSTING HIIT WORKOUT (10 MIN) - All Standing Exercises https://www.Gaia [employer]ric[employer]e.com/watch?t=aCeg219N40L BEST 15 Min TOTAL BEGINNER Workout for Fat Burning - No Equipment, No Jumping growwithjo https://www.[employer].com/watch?v=w9Jgz89RtEj Fun 15 minute low impact no equipment cardio/resistance home workout https://www.[employer].com/watch?v=QNAOIXhNRJs&t=20s 15 MIN STANDING CARDIO FOR WEIGHT LOSS (No Equipment) https://www.[employer]ia [employer]ric[employer]e.com/watch?v=ac18xUNaFHS Channel: Body Project https://www.[employer].com/@BodyProjectchallenge Grow with Gabriella: This channel is great! A lot of high energy workouts- feel free to look at the channel and pick which ones interest you the most! https://www.Gaia [employer]e.com/c/growwithjo/videos HASfit https://www.[employer].com/@HASfit POPSUGAR Fitness- this one is very popular! It is nice because most videos have 3 people- one completing the move, one doing modifications, and one doing advanced! https://www.[employer].com/@PS_Fit Please do not hesitate to reach out with any questions! [phone] Next follow up- 11/25/2024 at 2:00pm Remember to stay hydrated!! documented in this encounterOur Lady Of [facility] [place]08-14-2025 NoteHNO ID: [id number] Author: MARIA ELENA SAVAGE Natural Developer Service: ? Author Type: Natural Developer Type: Progress Notes Filed: 10/02/2024 14:35 Note Text: Virtual Visit (Audio/Visual)I have discussed the nature of this visit with the patient which will occur via [facility] (Phone, Virtual Visit) and she agrees to proceed with this interaction. Please do not hesitate to reach out with any questions! [phone] Next follow up- 11/25/2024 at 2:00pm Remember to stay hydrated!![facility]08-14-[facility] History of Present illness Narrative* Maria Elena Savage Natural Developer - 10/02/2024 1:46 PM EDT Virtual Visit (Audio/Visual)I have discussed the nature of this visit with the patient which will occur via [facility] (Phone, Virtual Visit) and she agrees to proceed with this interaction. Please do not hesitate to reach out with any questions! [phone] Next follow up- 11/25/2024 at 2:00pm Remember to stay hydrated!! documented in this encounterOur Lady Of [facility] [place]08-09-2025 Discharge summary Author Mazin Wilkinson [facility] Note Date/Time September 27, 2024 3:1 9pm [facility] Medical Records Department [address] [place] [address] Emergency Department Summary 09/27/24 MR#: [id number] Acct: [id number] Name: MARION GUTIERREZ Rep #:[id number] : 1995 28 From: Mazin Wilkinson MD PCP: Karuna Lim [employer]-C Status:REG ER Location: ED HPI HPI - Psych History of Present Illness Chief Complaint: Suicidal Informant: patient Onset/Context/Timing Onset: Days Context: Gradual Onset Timing: Continuous Current Severity: Mild Maximum Severity: Mild Associated Symptoms Associated Symptoms - Psych: Positive for Depressed and Suicidal Thoughts Specific plan (suicidal thought): None Narrative Narrative: 28-year-old female history of diabetes, bipolar irritable bowel. States he saiddiarrhea for about 10+ days. To the point there is got her depressed and she issuicidal. Denies any prior attempt at this time. In the past she has tried to overdose. She does not have a specific plan at this time. Prior similar symptoms: Yes Recent Illness/Hospitalization: No PFSH PFSH Medical History Alcohol use Picking own skin [...] mg/1.6 441 mg IM .COMPLEX [facility] 12/18/22 10/23/23 History mL suspension, ext.rel. IM syringe ([place]) cholecalciferol (vitamin D3) 25 25 mcg PO DAILY vitami n 12/18/22 09/26/24 History mcg (1,000 unit) tablet (Vitamin D3) [...] PRN dyspepsia 10/10/23 10/21/23 Rx #30 tabs polyethylene glycol 3350 17 4 g PO [...] Unknown Rx (Reglan) and vomiting #28 tabs dicyclomine 20 mg tablet 20 mg PO TID PRN abdominal p ain 05/08/24 09/23/24 Rx #30 tabs metoclopramide HCl 10 mg tablet 10 mg PO Q6H PRN nause a and 05/08/24 Unknown Rx (Reglan) vomiting #20 tabs miscellaneous medical supply #1 ea 05/29/24 Unknown Rx metoprolol tartrate 50 mg tablet 100 mg (2 x 50 mg) PO BID #180 tabs 07/21/24 Unknown Rx amitriptyline 25 mg tablet 25 mg PO DAILY 09/04/24 Unk nown History amlodipine 2.5 mg tablet 2.5 mg PO BID 09/04/24 Unkno wn History atogepant 60 mg tablet (Qulipta) 60 mg PO DAILY 09/27/24 History cyanocobalamin (vitamin B-12) 1,000 mcg sublingual YI LY 09/04/24 09/26/24 History 1,000 mcg sublingual tablet norgestimate 0.25 mg-ethinyl 1 tab PO DAILY 09/04/24 U nknown History estradiol 0.035 mg tablet (Grundy-Linyah) rizatriptan 10 mg tablet 10 mg PO Q2H PRN migraine he adache 09/04/24 Unknown History diphenoxylate-atropine 2.5 1 tab PO TID #90 tabs 09/2509/27/24 10:00 Rx mg-0.025 mg tablet Allergy/AdvReac Type Severity Reaction Status Date / Time metformin Allergy Mild Nausea/Vom/ Verified 09/27/24 11:53 Diarrhea pollen extracts Allergy Hives Verified 09/27/24 11:53 escitalopram (From Lexapro) AdvReac Other Verified 09/27/24 11:53 lactase (From Dairy Aid) AdvReac Upset Verified 09/27/24 11:53 Stomach ondansetron (From Zofran (as AdvReac Anaphylaxis Verified 09/27/24 11:53 hydrochloride)) Family History Mother Uterine cancer Other [...] history: single ROS ROS ED ROS Narrative Diarrhea. Constitutional Constitutional ED: Denies chills or fever(s) Eyes Eyes: Denies blurry vision ENT ENT ED: Denies ear pain Cardiovascular Cardiovascular: Denies chest pain Respiratory/Chest Respiratory/Chest: Denies cough or dyspnea Gastrointestinal Gastrointestinal: Reports abdominal pain and diarrhea; Denies nausea or vomiting Genitourinary Genitourinary ED: Denies dysuria or hematuria Musculoskeletal Musculoskeletal: Denies arthralgias Neurologic Neurologic: Denies headache(s) Psychiatric Psychiatric: Reports depression and suicidal thoughts; Denies anxiety Endocrine Endocrinology: Denies polydipsia Hematologic/Lymphatic Hematologic/Lymphatic: Denies easy bleeding Allergic/Immunologic Allergic/Immunologic ED: Denies mouth swelling EXAM Physical Exam Narrative Exam Narrative: 28-year-old female vital signs stable afebrile. No acute distress. Sitting upright in chair and then moved to the bed. Mom in the room. H EENT exam pupils round react light. Dry mucous membranes. Neck nontender no JVD. Lungs clear to auscultation. Heart regular rhythm no murmur. Abdomen soft nondistended normal bowel sounds without peritoneal signs. Minimal right-sided tenderness. No McBurney's point tenderness. No hernia or mass. No distention. Patient moving all 4 extremities. Nontender no edema. Normal strength. Back nontender. Neurologically she is awake alert. Answering questions following commands. She does make eye contact she is forthcoming with information. Const Vital Signs: 09/27/24 11:50 09/27/24 12:49 Temperature 98.2 F Temperature Source Oral Pulse Rate 102 H 87 Respiratory Rate 18 18 Blood Pressure 165/104 H 166/92 H Blood Pressure Mean 124 116 Pulse Ox 96 97 Oxygen Delivery Method Room Air Room Air Positive well nourished and well developed; Negative for cachectic, contracturesor unkempt General Appearance ED: well developed and NAD; Negative for unkempt, cachectic, contractures or pallor Nutritional Appearance: Negative for cachectic HEENT Denies moist mucous membranes HEENT Narrative: Dry mucous membranes. normocephalic and atraumatic Eyes PERRL and EOMs intact bilaterally Neck no lymphadenopathy, supple and no JVD Resp normal respiratory effort and clear to auscultation bilaterally Cardio S1 normal heart sound, S2 normal heart sound and no murmurs GI non-distended and no masses; Negative for non-tender GI Narrative: Mild right-sided tenderness. Auscultation: normoactive bowel sounds Palpation: soft and tender; Negative for guarding, hepatomegaly, splenomegaly ormass Back/Spine no CVA tenderness Extremity normal to inspection General Extremety ED: Negative for edema, tenderness or other findings General Extremity: Negative for edema or other findings Neuro oriented x3 and CN's II-XII intact bilaterally Sensorium / Orientation: alert, oriented to person, oriented to place and oriented to time Motor Exam: strength 5/5 throughout Psych cooperative, speech normal, activity/motor behavior normal, denies hallucinations and denies homicidal ideation; Negative for affect normal or denies suicidal ideation Appearance: grossly normal, appropriate and well kempt; Negative for unkempt Attitude: calm Activity / Motor Behavior: appropriate eye contact Speech: normal speech Mood & Affect: depressed and sad Thought Process: normal thought process Thought Content: suicidality Attention / Concentration: attention grossly intact Memory / Cognition: memory grossly intact Insight: insight good Judgement: judgement good Skin General Skin Exam: Negative for jaundice or pallor Lesions: no lesions Rashes: no rashes MDM MDM MDM Narrative Medical decision making narrative: 28-year-old female history of IBS has been a lot of diarrhea in the last 10 days. Now she states that she is more depressed because of diarrhea and suicidal but has had no attempt this time she has had prior attempts in the past. ED mental health workup with labs. She will get IV fluids. She will be a crisis evaluation or oncology social work. Repeat exam patient is doing well at 2:18 PM awaiting oncology social work evaluation to determine if we need to have her placed for depression or suicidal ideation or if she is comfortable with being discharged home with outpatient follow-up and follow- up for her chronic diarrhea. Patient is currently speaking to the counseling center personnel. She is resting comfortably in bed. Crisis personnel spoke with me. Patient actually wants to be a psychiatric admission. As does her mother. Cecile corea was comfortably discharged homeas well as support her for an admission so she is working on getting her admitted to a psychiatric facility. History & Record Review Discussion w/independent historian: Patient Additional record(s) reviewed:: Prior inpatient record, Prior outpatient record,Prior ED visit and Prior labs Lab Data Attestation: I reviewed the patient's lab results. Lab results narrative: CBC is normal. White count of 5. H&H 13 and 41. Platelets 349. Electrolytes show sodium 141. Gap 13. Normal BUN and creatinine. Liver enzymes unremarkable AST of 53 ALT of 82. Serum test is negative. Tox screen negative. Alcohol negative. Labs: Laboratory Results - last 24 hr 09/27/24 09/27/24 12:40 13:15 WBC 5.7 RBC 4.98 Hgb 13.5 Hct 41.1 MCV 82.5 MCH 27.1 MCHC 32.8 RDW Std Deviation 41.9 RDW Coeff of Delmy 13.9 Plt Count 349 MPV 9.0 Immature Gran % (Auto) 0.200 Neut % (Auto) 64.2 Lymph % (Auto) 24.2 Grundy % (Auto) 9.3 Eos % (Auto) 1.4 Baso % (Auto) 0.7 Absolute Neuts (auto) 3.7 Absolute Lymphs (auto) 1.38 Nucleated RBC % 0 Sodium 141 Potassium 3.3 Chloride 107 Carbon Dioxide 20.7 L Anion Gap 13 BUN 10 Creatinine 0.76 Estim Creat Clear Calc 154.37 Est GFR (MDRD) Non-Af 110 BUN/Creatinine Ratio 13.6 Glucose 130 H Calcium 9.8 Total Bilirubin 0.36 AST 53 H ALT 82 H Alkaline Phosphatase 71 Total Protein 7.2 Albumin 4.0 Globulin 3.1 Albumin/Globulin Ratio 1.3 Serum , Qual NEGATIVE Urine Opiates Screen NEGATIVE U Buprenorphine Qual NEGATIVE Ur Oxycodone Screen NEGATIVE Urine Methadone Screen NEGATIVE Urine Fentanyl Screen NEGATIVE Ur Barbiturates Screen NEGATIVE Ur Phencyclidine Scrn NEGATIVE Ur Amphetamines Screen NEGATIVE U Benzodiazepines Scrn NEGATIVE Urine Cocaine Screen NEGATIVE U Cannabinoids Screen NEGATIVE Ethyl Alcohol < 10.1 Discharge Plan Triage Chief Complaint: Suicidal Other Complaint: Diarrhea ED Provider: Mazin Wilkinson Dx/Rx/DC Orders Clinical Impression: Depression, History of bipolar disorder, Suicidal thoughts Prescriptions: No Action mecobalamin (vitamin B12) 1,000 mcg lozenge 1,000 mcg PO DAILY Rx Instructions: allow to dissolve in mouth OR may chew lightly before swallowing hyoscyamine sulfate 0.125 mg tablet 0.125 mg PO BID-QID PRN (Reason: dyspepsia) Qty: 30 0RF (DME) miscellaneous medical supply Misc See Rx Instructions .Route Qty: 1 0RF Rx Instructions: As directed diphenoxylate-atropine 2.5-0.025 mg tablet 1 tab PO TID Qty: 90 0RF lithium carbonate 300 MG capsule 300 [...] .COMPLEX Rx Instructions: 441 mg intramuscularly Q28D; due first week of september polyethylene glycol 3350 [Miralax] 17 gram/dose powder [...] PRN (Reason: abdominal pain) Qty: 30 0RF amitriptyline 25 mg tablet 25 mg PO DAILY norgestimate-ethinyl estradiol [Grundy-Linyah] 0.25-0.035 mg tablet 1 tab PO DAILY cyanocobalamin (vitamin B-12) 1,000 mcg tablet, sublingual 1,000 mcg sublingual DAILY Qulipta 60 mg tablet 60 mg PO DAILY rizatriptan 10 mg tablet 10 mg PO Q2H PRN (Reason: migraine headache) amlodipine 2.5 mg tablet 2.5 mg PO BID simvastatin 20 mg tablet 20 mg PO [...] 28 11RF metoprolol tartrate 50 mg tablet 100 mg PO BID Qty: 180 3RF Primary Care Provider: Karuna Lim Referrals: Karuna Lim, TOBAC[employer] WAREHOUSE AGENT-C [Primary Care Provider] - Print Language: Citizen [place] Disposition Disposition: Psychiatric Hospital or Unit What to do if you have Problems For any increased pain, shortness of breath, bleeding, nausea or vomiting, chestpain, or any unexpected problems, contact your Primary Care Provider. Call [facility] ([phone]) or report to the closest Emergency Room. Call 911 if necessary. 09/27/24 1519 <Electronically signed by Mazin Wilkinson MD> Cosigner Signature (if applicable): CC: Karuna MCBRIDE TOBACCO WAREHOUSE AGENT-C Carina ~ Signed [facility] Work Phone: [phone]) 462-925608-09-2025 Discharge summary [facility] Medical Records Department [address] [place] [id number] Emergency Department Summary 09/27/24 MR#: [id number] Acct: [id number] Name: MARION GUTIERREZ Rep #:[id number] : 1995 28 From: Mazin Wilkinson MD PCP: Karuna Lim [employer] WAREHOUSE AGENT-C Status:REG ER Location: ED HPI HPI - Psych History of Present Illness Chief Complaint: Suicidal Informant: patient Onset/Context/Timing Onset: Days Context: Gradual Onset Timing: Continuous Current Severity: Mild Maximum Severity: Mild Associated Symptoms Associated Symptoms - Psych: Positive for Depressed and Suicidal Thoughts Specific plan (suicidal thought): None Narrative Narrative: 28-year-old female history of diabetes, bipolar irritable bowel. States he saiddiarrhea for about 10+ days. To the point there is got her depressed and she issuicidal. Denies any prior attempt at this time. In the past she has tried to overdose. She does not have a specific plan at this time. Prior similar symptoms: Yes Recent Illness/Hospitalization: No PFSH [facility] Medical History Alcohol use Picking own [...] lauroxil 441 mg/1.6 441 mg IM .COMPLEX [facility] 12/18/22 10/23/23 History mL suspension, ext.rel. IM syringe ([place]) cholecalciferol (vitamin D3) 25 25 mcg PO DAILY vitami n 12/18/22 09/26/24 History mcg (1,000 unit) tablet (Vitamin D3) [...] PRN dyspepsia 10/10/23 10/21/23 Rx #30 tabs polyethylene glycol 3350 17 4 g PO [...] Unknown Rx (Reglan) and vomiting #28 tabs dicyclomine 20 mg tablet 20 mg PO TID PRN abdominal p ain 05/08/24 09/23/24 Rx #30 tabs metoclopramide HCl 10 mg tablet 10 mg PO Q6H PRN nause a and 05/08/24 Unknown Rx (Reglan) vomiting #20 tabs miscellaneous medical supply #1 ea 05/29/24 Unknown Rx metoprolol tartrate 50 mg tablet 100 mg (2 x 50 mg) PO BID #180 tabs 07/21/24 Unknown Rx amitriptyline 25 mg tablet 25 mg PO DAILY 09/04/24 Unk nown History amlodipine 2.5 mg tablet 2.5 mg PO BID 09/04/24 Unkno wn History atogepant 60 mg tablet (Qulipta) 60 mg PO DAILY 09/27/24 History cyanocobalamin (vitamin B-12) 1,000 mcg sublingual YI LY 09/04/24 09/26/24 History 1,000 mcg sublingual tablet norgestimate 0.25 mg-ethinyl 1 tab PO DAILY 09/04/24 U nknown History estradiol 0.035 mg tablet (Grundy-Linyah) rizatriptan 10 mg tablet 10 mg PO Q2H PRN migraine he adache 09/04/24 Unknown History diphenoxylate-atropine 2.5 1 tab PO TID #90 tabs 09/2509/27/24 10:00 Rx mg-0.025 mg tablet Allergy/AdvReac Type Severity Reaction Status Date / Time metformin Allergy Mild Nausea/Vom/ Verified 09/27/24 11:53 Diarrhea pollen extracts Allergy Hives Verified 09/27/24 11:53 escitalopram (From Lexapro) AdvReac Other Verified 09/27/24 11:53 lactase (From Dairy Aid) AdvReac Upset Verified 09/27/24 11:53 Stomach ondansetron (From Zofran (as AdvReac Anaphylaxis Verified 09/27/24 11:53 hydrochloride)) Family History Mother Uterine cancer Other [...] history: single ROS ROS ED ROS Narrative Diarrhea. Constitutional Constitutional ED: Denies chills or fever(s) Eyes Eyes: Denies blurry vision ENT ENT ED: Denies ear pain Cardiovascular Cardiovascular: Denies chest pain Respiratory/Chest Respiratory/Chest: Denies cough or dyspnea Gastrointestinal Gastrointestinal: Reports abdominal pain and diarrhea; Denies nausea or vomiting Genitourinary Genitourinary ED: Denies dysuria or hematuria Musculoskeletal Musculoskeletal: Denies arthralgias Neurologic Neurologic: Denies headache(s) Psychiatric Psychiatric: Reports depression and suicidal thoughts; Denies anxiety Endocrine Endocrinology: Denies polydipsia Hematologic/Lymphatic Hematologic/Lymphatic: Denies easy bleeding Allergic/Immunologic Allergic/Immunologic ED: Denies mouth swelling EXAM Physical Exam Narrative Exam Narrative: 28-year-old female vital signs stable afebrile. No acute distress. Sitting upright in chair and then moved to the bed. Mom in the room. H EENT exam pupils round react light. Dry mucous membranes. Neck nontender no JVD. Lungs clear to auscultation. Heart regular rhythm no murmur. Abdomen soft nondistended normal bowel sounds without peritoneal signs. Minimal right-sided tenderness. No McBurney's point tenderness. No hernia or mass. No distention. Patient moving all 4 extremities. Nontender no edema. Normal strength. Back nontender. Neurologically she is awake alert. Answering questions following commands. She does make eye contact she is forthcoming with information. Const Vital Signs: 09/27/24 11:50 09/27/24 12:49 Temperature 98.2 F Temperature Source Oral Pulse Rate 102 H 87 Respiratory Rate 18 18 Blood Pressure 165/104 H 166/92 H Blood Pressure Mean 124 116 Pulse Ox 96 97 Oxygen Delivery Method Room Air Room Air Positive well nourished and well developed; Negative for cachectic, contracturesor unkempt General Appearance ED: well developed and NAD; Negative for unkempt, cachectic, contractures or pallor Nutritional Appearance: Negative for cachectic HEENT Denies moist mucous membranes HEENT Narrative: Dry mucous membranes. normocephalic and atraumatic Eyes PERRL and EOMs intact bilaterally Neck no lymphadenopathy, supple and no JVD Resp normal respiratory effort and clear to auscultation bilaterally Cardio S1 normal heart sound, S2 normal heart sound and no murmurs GI non-distended and no masses; Negative for non-tender GI Narrative: Mild right-sided tenderness. Auscultation: normoactive bowel sounds Palpation: soft and tender; Negative for guarding, hepatomegaly, splenomegaly ormass Back/Spine no CVA tenderness Extremity normal to inspection General Extremety ED: Negative for edema, tenderness or other findings General Extremity: Negative for edema or other findings Neuro oriented x3 and CN's II-XII intact bilaterally Sensorium / Orientation: alert, oriented to person, oriented to place and oriented to time Motor Exam: strength 5/5 throughout Psych cooperative, speech normal, activity/motor behavior normal, denies hallucinations and denies homicidal ideation; Negative for affect normal or denies suicidal ideation Appearance: grossly normal, appropriate and well kempt; Negative for unkempt Attitude: calm Activity / Motor Behavior: appropriate eye contact Speech: normal speech Mood & Affect: depressed and sad Thought Process: normal thought process Thought Content: suicidality Attention / Concentration: attention grossly intact Memory / Cognition: memory grossly intact Insight: insight good Judgement: judgement good Skin General Skin Exam: Negative for jaundice or pallor Lesions: no lesions Rashes: no rashes MDM MDM MDM Narrative Medical decision making narrative: 28-year-old female history of IBS has been a lot of diarrhea in the last 10 days. Now she states that she is more depressed because of diarrhea and suicidal but has had no attempt this time she has had prior attempts in the past. ED mental health workup with labs. She will get IV fluids. She will be a crisis evaluation or oncology social work. Repeat exam patient is doing well at 2:18 PM awaiting oncology social work evaluation to determine if we need to have her placed for depression or suicidal ideation or if she is comfortable with being discharged home with outpatient follow-up and follow-up for her chronic diarrhea. Patient is currently speaking to the counseling center personnel. She is resting comfortably in bed. Crisis personnel spoke with me. Patient actually wants to be a psychiatric admission. As does her mother. [facility] personnel was comfortably discharged homeas well as support her for an admission quin is working on getting her admitted to a psychiatric facility. History & Record Review Discussion w/independent historian: Patient Additional record(s) reviewed:: Prior inpatient record, Prior outpatient record,Prior ED visit and Prior labs Lab Data Attestation: I reviewed the patient's lab results. Lab results narrative: CBC is normal. White count of 5. H&H 13 and 41. Platelets 349. Electrolytes show sodium 141. Gap 13. Normal BUN and creatinine. Liver enzymes unremarkable AST of 53 ALT of 82. Serum test is negative. Tox screen negative. Alcohol negative. Labs: Laboratory Results - last 24 hr 09/27/24 09/27/24 12:40 13:15 WBC 5.7 RBC 4.98 Hgb 13.5 Hct 41.1 MCV 82.5 MCH 27.1 MCHC 32.8 RDW Std Deviation 41.9 RDW Coeff of Delmy 13.9 Plt Count 349 MPV 9.0 Immature Gran % (Auto) 0.200 Neut % (Auto) 64.2 Lymph % (Auto) 24.2 Grundy % (Auto) 9.3 Eos % (Auto) 1.4 Baso % (Auto) 0.7 Absolute Neuts (auto) 3.7 Absolute Lymphs (auto) 1.38 Nucleated RBC % 0 Sodium 141 Potassium 3.3 Chloride 107 Carbon Dioxide 20.7 L Anion Gap 13 BUN 10 Creatinine 0.76 Estim Creat Clear Calc 154.37 Est GFR (MDRD) Non-Af 110 BUN/Creatinine Ratio 13.6 Glucose 130 H Calcium 9.8 Total Bilirubin 0.36 AST 53 H ALT 82 H Alkaline Phosphatase 71 Total Protein 7.2 Albumin 4.0 Globulin 3.1 Albumin/Globulin Ratio 1.3 Serum , Qual NEGATIVE Urine Opiates Screen NEGATIVE U Buprenorphine Qual NEGATIVE Ur Oxycodone Screen NEGATIVE Urine Methadone Screen NEGATIVE Urine Fentanyl Screen NEGATIVE Ur Barbiturates Screen NEGATIVE Ur Phencyclidine Scrn NEGATIVE Ur Amphetamines Screen NEGATIVE U Benzodiazepines Scrn NEGATIVE Urine Cocaine Screen NEGATIVE U Cannabinoids Screen NEGATIVE Ethyl Alcohol < 10.1 Discharge Plan Triage Chief Complaint: Suicidal Other Complaint: Diarrhea ED Provider: Mazin Wilkinson Dx/Rx/DC Orders Clinical Impression: Depression, History of bipolar disorder, Suicidal thoughts Prescriptions: No Action mecobalamin (vitamin B12) 1,000 mcg lozenge 1,000 mcg PO DAILY Rx Instructions: allow to dissolve in mouth OR may chew lightly before swallowing hyoscyamine sulfate 0.125 mg tablet 0.125 mg PO BID-QID PRN (Reason: dyspepsia) Qty: 30 0RF (DME) miscellaneous medical supply Misc See Rx Instructions .Route Qty: 1 0RF Rx Instructions: As directed diphenoxylate-atropine 2.5-0.025 mg tablet 1 tab PO TID Qty: 90 0RF lithium carbonate 300 MG capsule 300 [...] .COMPLEX Rx Instructions: 441 mg intramuscularly Q28D; due first week of september polyethylene glycol 3350 [Miralax] 17 gram/dose powder [...] PRN (Reason: abdominal pain) Qty: 30 0RF amitriptyline 25 mg tablet 25 mg PO DAILY norgestimate-ethinyl estradiol [Grundy-Linyah] 0.25-0.035 mg tablet 1 tab PO DAILY cyanocobalamin (vitamin B-12) 1,000 mcg tablet, sublingual 1,000 mcg sublingual DAILY Qulipta 60 mg tablet 60 mg PO DAILY rizatriptan 10 mg tablet 10 mg PO Q2H PRN (Reason: migraine headache) amlodipine 2.5 mg tablet 2.5 mg PO BID simvastatin 20 mg tablet 20 mg PO [...] 28 11RF metoprolol tartrate 50 mg tablet 100 mg PO BID Qty: 180 3RF Primary Care Provider: Karuna Lim Referrals: Karuna Lim, [employer] WAREHOUSE AGENT-C [Primary Care Provider] - Print Language: Citizen [place] Disposition Disposition: Psychiatric Hospital or Unit What to do if you have Problems For any increased pain, shortness of breath, bleeding, nausea or vomiting, chestpain, or any unexpected problems, contact your Primary Care Provider. Call [facility] ([phone]) or report tothe closest Emergency Room. Call 911 if necessary. 09/27/24 5918 Cosigner Signature (if applicable): CC: Karuna MCBRIDE TOBACCO WAREHOUSE AGENTJovanna Lim ~ Signed [facility]08-07-2025 Evaluation note* Diagnosis Onset Date Resolution Status Admit Date Palpitations acute September 25, 2024 2:24pm Crohn's disease chronic September 2:24pm Fatty liver chronic September 25, 025 2:24pm Gastroparesis chronic September 25, 2024 2:24pm Nausea vomiting and diarrhea chronic September 25, 2024 2:24pm Acute diarrhea inactive September 2:24pm Abnormal CT of the abdomen acute October 27, 2024 9:37am LUQ abdominal pain acute Septem 2024 9:37am Nausea vomiting and diarrhea chronic October 27, 2024 9:37am Chest pain acute November 28, 2024 1:10pm Palpitations acute November 1:10pm Syncope acute November 28, 2024 1:10pm Hypertension chronic November 1:10pm Abnormal uterine bleeding (AUB) acute December 09 8:24am Dysmenorrhea acute November 8:24am Hirsutism acute December 09, 2024 8:24am History of recurrent UTI (urinary tract infection) acute Octobe r 2024 8:24am Oligomenorrhea acute December 092024 8:24am Encounter for routine gynecological examination noneactive Novobe r 2024 8:24am [facility] Work Phone: [phone]) 646-163908-04-2025 Telephone encounter Note* Telephone Encounter - Chhaya Cano RN - 09/22/2024 2:06 PM EDT This matter is being addressed in a separate encounter (Refill 09/19). Closing this encounter. Sulma Cano RN [facility]08-04-2025 Miscellaneous Notes* Telephone Encounter - Chhaya Cano RN - 09/22/2024 2:06 PM EDT This matter is being addressed in a separate encounter (Refill 09/19). Closing this encounter. Sulma Cano RN documented in this encounter[facility] Radiology Diagnostic study [facility]07-10-2025 Telephone encounter Note* Telephone Encounter - Arsenio Solorio LSW - 08/28/2024 3:49 PM EDT Endocrinology & Metabolism Social Work Progress Note Provider Action / FYI N/A Marion Gutierrez [id number] Type of Contact: telephone Endocrine WASH TANK TENDER Referral Reason: [id number] Noel Qualification Contact Made?: No- emergency service worker left 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 Note/Intervention: n/a [employer] referral placed: n/a Signature: KANU Pathak Patient Name: Marion Gutierrez Date: 08/28/2024 Time: 3:50 PM Pager/Contact #: [phone] During this patient contact I spent approximately 5 minutes in reviewing the patient's chart and counseling regarding community resources and coordinating care. [facility]07-10-2025 Miscellaneous Notes* Telephone Encounter - Arsenio Solorio LSW - 08/28/2024 3:49 PM EDT Endocrinology & Metabolism Social Work Progress Note Provider Action / FYI N/A Marion Gutierrez [id number] Type of Contact: telephone Endocrine WASH TANK TENDER Referral Reason: [id number] Noel Qualification Contact Made?: No- emergency service worker left 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 Note/Intervention: n/a [employer] referral placed: n/a Signature: KANU Pathak Patient Name: Marion Gutierrez Date: 08/28/2024 Time: 3:50 PM Pager/Contact #: [phone] During this patient contact I spent approximately 5 minutes in reviewing the patient's chart and counseling regarding community resources and coordinating care. documented in this encounterOur [facility] History of Present illness Narrative* Maria Elena Savage, Natural Developer - 08/26/2024 12:55 PM EDT Virtual Visit (Audio/Visual)I have discussed the nature [...] receiving an exercise prescription. documented in this encounterOur [facility]-2025 NoteHNO ID: [id number] Author: MARIA ELENA SAVAGE Natural Developer Service: ? Author Type: Natural Developer Type: Progress Notes Filed: 08/26/2024 13:13 Note [...] test prior to receiving an exercise prescription. [facility]06-13-2025 NoteHNO ID: [id number] Author: LAURA CARSON, PhD Service: ? Author Type: Psychologist Type: Progress Notes Filed: 08/01/2024 14:55 Note Text: [facility] DEPARTMENT OF ENDOCRINOLOGY Progress Note August 01, 2024 [facility] C[facility]: [facility] BILLING CODE:Leonid CPT Code:4561178 Virtual PSYTX PT AND/FAMILY 45 MINS Time initiated session: 12:20 PM to 1:30 PM Date of First Session: 06/02/24 (initial evaluation) Session #: 2 Collateral Parties Present: parent. Virtual Visit yes I have communicated my name and active licensure. If seen remotely, The patient's identity and physical location were verified at the time of this visit. Either the patient or their legal motor vehicle representative has been informed of the risks [...] yes The day before yesterday: 8:30 Leftover [place] food, chips, salsa guac 11:30 Taco salad [...] 26 at 1:30 pm Laura Carson, PhD [facility]ologistMain [facility]06-[facility] History of Present illness Narrative* Laura Carson, PhD - 08/01/2024 12:12 PM EDT Images from the original note were not included. [facility] DEPARTMENT OF ENDOCRINOLOGY Progress Note August 01, 2024 [facility]: [facility] BILLING CODE:Leonid CPT Code:0437844 Virtual PSYTX PT &/FAMILY 45 MINS Time initiated session: 12:20 PM to 1:30 PM Date of First Session: 06/02/24 (initial evaluation) Session #: 2 Collateral Parties Present: parent. Virtual Visit yes I have communicated my name and active licensure. If seen remotely, The patient's identity and physical location were verified at the time of this visit. Either the patient or their legal motor vehicle representative has been informed of the risks [...] yes The day before yesterday: 8:30 Leftover [place] food, chips, salsa guac 11:30 Taco salad [...] up September 26 at 1:30 pm Laura Leonid, PhD Psychologist documented in this encounterOur [facility] Evaluation note* Diagnosis Onset Date Resolution Status Admit Date Palpitations acute July 24 1:29pm Syncope acute July 24, 2024 1:29pm Hypertension chronic July 24 1:29pm Palpitations acute September 25, 2024 2:24pm Crohn's disease chronic September 2:24pm Fatty liver chronic September 25, 2 025 2:24pm Gastroparesis chronic September 25, 2024 2:24pm Nausea vomiting and diarrhea chronic September 25, 2024 2:24pm Acute diarrhea inactive September 2:24pm Abnormal CT of the abdomen acute October 27, 2024 9:37am LUQ abdominal pain acute Sept2024 9:37am Nausea vomiting and diarrhea chronic October 27, 2024 9:37am [facility] Work Phone: [phone] 165-657705-27-2025 Instructions* Patient Instructions* Jey Johnson MD - 07/15/2024 10:59 AM EDT Please continue same regimen for the control pills documented in this encounterOur [facility] Of [facility]25 NoteHNO ID: [id number] Author: JEY JOHNSON MD Service: ? Author Type: Physician Type: Progress Notes Filed: 07/16/2024 23:20 Note Text: Endocrinology and Metabolism Table [place] Follow up note Chief complaint: Evaluation of [...] Seasonal Allergies Cough Janell (more content not 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[facility]05-27-2025 History of Present illness Narrative* Jey Johnson MD - 07/15/2024 10:52 AM EDT Endocrinology and Metabolism [place] Follow up note Chief complaint: Evaluation of [...] 07-23-2023 CORTISOL,F/24hr 46 ug/24 hr High 6-42 [facility] CORTISOL,U FREE 16 ug/L Normal Undefined [facility] Metanephrine Frac 24 HR UR on 07-23-2023 Metaneph,UR 24H 68 ug/24 hr Normal 36-209 [facility] Metanephrines,U 24 ug/L Normal Undefined [facility] Normetan,UR 24h 522 ug/24 hr High 95-449 [facility] Normetanephrine 183 ug/L Normal Undefined [facility] Catecholamines, 24 UR on 07-20-2023 Dopamine, Urine 580 ug/L Normal Undefined [facility] Dopamine,U,24HR 957 ug/24 hr High 0-510 [facility] Epineph.,U,24HR 5 ug/24 hr Normal 0-20 [facility] Epinephrine, U 3 ug/L Normal Undefined [facility] Norepin.,U,24HR 134 ug/24 hr Normal 0-135 [facility] Comment on above: Order Comment: Test(s) 219830-Htqmzxjidee, Urine; 631152- Norepinephrine, Ur; 530358-Avgaeotd, Urinewas developed and its performance characteristicsdetermined by [employer]. It has notbeen cleared or approvedby the Food and Drug Administration. Performed By: #### L3600.0150 ####[facility] [address] [place], [place],[id number] Norepinephrin,U 81 ug/L Normal Undefined [facility] Adrenocorticotropic Hormone on 07-17-2023 ACTH 9.7 pg/mL Normal 7.2-63.3 [facility] CORTISOL SERUM on 07-17-2023 CORTISOL 20.10 ug/dL Normal 3.44-22.45 [facility] Catecholamines, Plasma on 07-17-2023 DOPAMINE <30 Normal 0-48 [facility] EPINEPHRINE <15 Normal 0-62 [facility] NOREPINEPHRINE 429 pg/mL Normal 0-874 [facility] Gastrin, Serum on 07-17-2023 GASTRIN 265 pg/mL High 0-115 [facility] Insulin Level on 07-17-2023 INSULIN,FASTING 93.7 uIU/mL High 2.6-24.9 [facility] Insulin Like Growth Factor on 07-17-2023 SOMATOMEDIN C 122 ng/mL Normal 91-308 [facility] Chromogranin A 206.0 ng/mL Abnormal 0.0-101.8 [facility] Renin/Aldosterone Activity on 07-17-2023 ALD/RENIN RATIO 11.6 Normal 0.0-30.0 [facility] Performed By: #### L3400.1350, L3300.3500, L3300.1800, L3430.0100, L3300.1000, L3300.1050, L3100.4810 ####[facility] [address] [place], [place], [address] ALDOSTERONE,S 45.0 ng/dL High 0.0-30.0 [facility] RENIN, PLASMA 3.873 ng/mL/hr Normal 0.167-5.380 [facility] BUN/CRE 18.1 RATIO Normal 10-20 [facility] CA,Total 9.0 mg/dL Normal 8.5-10.1 [facility] Chloride [Moles/Vol] 110 mmol/L High 98-107 [facility] CO2 [Moles/Vol] 25.0 mmol/L Normal 21.0-32.0 [facility] Creatinine [Mass/Vol] 0.66 mg/dL Normal 0.55-1.02 [facility] Performed By: #### L100.0100, L500.4050, L506.1000, L501.76579, L501.9520, L506.0400, L501.9060 ####[facility] [address] [place], [place], [id number] EST GFR - AA 138 mL/min Normal >60 [facility] Performed By: #### L100.0100, L500.4050, L506.1000, L501.46369, L501.9520, L506.0400, L501.9060 ####[facility] [address] [place], [place], [id number] GAP 3 Low 5-15 [facility] GFR/1.73 sq M.predicted among non-blacks MDRD (S/P/Bld) [Vol rate/Area] 114 mL/min/(1.73_m2) Normal>60 [facility] Globulin (S) [Mass/Vol] 3.8 g/dL Normal 2.2-4.2 [facility] Glucose [Mass/Vol] 124 mg/dL High 74-106 [facility] Performed By: #### L100.0100, L500.4050, L506.1000, L501.16283, L501.9520, L506.0400, L501.9060 ####[facility] [address] [place], [place], [id number] Potassium [Moles/Vol] 4.0 mmol/L Normal 3.5-5.1 [facility] Sodium [Moles/Vol] 138 mmol/L Normal 136-145 [facility] T PROT 7.0 g/dL Normal 6.4-8.2 [facility] Urea nitrogen [Mass/Vol] 12 mg/dL Normal 7-18 [facility] Free T3 on 07-05-2023 Free T3 [Mass/Vol] 2.4 pg/mL Normal 2.18-3.98 [facility] Comment on above: Performed By: #### L100.0100, L500.4050, L506.1000, L501.46100, L501.9520, L506.0400, L501.9060 ####[facility] [address] [place], [address] [place] on 07-05-2023 LI 0.80 mmol/L Normal 0.60-1.20 [facility] T4 Free Direct on 07-05-2023 T4 FREE DIRECT 1.04 ng/dL Normal 0.76-1.46 [facility] Comment on above: Performed By: #### L100.0100, L500.4050, L506.1000, L501.30986, L501.9520, L506.0400, L501.9060 ####[facility] [address] [place], [address] Thyroid Stim Hormone (TSH) on 07-05-2023 TSH 2.10 uIU/mL Normal 0.358-3.74 [facility] Vitamin D,25 Hydroxy on 07-05-2023 Vitamin D 25-OH 30.3 ng/mL Normal [facility] Latest Ref Rng 12/05/2023 Sex Hormone [...] Moderate Jey Johnson MD Endocrinology Associate Staff [facility] Endocrinology and Metabolism [facility] [place] [phone] documented in this encounterOur Lady Of [facility]05-20-2025 Evaluation note* Diagnosis Onset Date Resolution Status Admit Date Palpitations acute July 08 9:56am Crohn's disease chronic July 08, 2024 9:56am Fatty liver chronic July 08 9:56am Gastroparesis chronic July 08, 2 025 9:56am Nausea vomiting and diarrhea chronic July 08, 2024 9:56am Palpitations acute July 24 1:29pm Syncope acute July 24, 2024 1:29pm Hypertension chronic July 24 1:29pm Acute diarrhea acute September 2:24pm Palpitations acute September 25, 2024 2:24pm Crohn's disease chronic September 2:24pm Fatty liver chronic September 25, 2 025 2:24pm Gastroparesis chronic September 25, 2024 2:24pm Nausea vomiting and diarrhea chronic September 25, 2024 2:24pm [facility] Work Phone: 1(149) 134-440805-20-2025 Evaluation note* Diagnosis Onset Date Resolution Status Admit Date Palpitations acute July 08 9:56am Crohn's disease chronic July 08, 2024 9:56am Fatty liver chronic July 08 9:56am Gastroparesis chronic July 08, 2 025 9:56am Nausea vomiting and diarrhea chronic July 08, 2024 9:56am Palpitations acute July 24 1:29pm Syncope acute July 24, 2024 1:29pm Hypertension chronic July 24 1:29pm Palpitations acute September 25, 2024 2:24pm Crohn's disease chronic September 2:24pm Fatty liver chronic September 25, 2 025 2:24pm Gastroparesis chronic September 25, 2024 2:24pm Nausea vomiting and diarrhea chronic September 25, 2024 2:24pm Acute diarrhea inactive September 2:24pm Abnormal CT of the abdomen acute October 27, 2024 9:37am LUQ abdominal pain acute 2024 9:37am Nausea vomiting and diarrhea chronic October 27, 2024 9:37am [facility] Work Phone: 1(760) 204-537105-08-2025 Telephone encounter Note* Telephone Encounter - Chhaya Cano RN - 06/26/2024 8:04 AM EDT Images from the original note were not included. Patient confirms taking Grundy-Linyah and not Sprintec (also on med list). Pended for review. Most recent Endocrinology visit: Last encounter Visit on 05/16/2024 (with Peris Kibera) 10/26/2023 in [facility] with BENDARAM, JEY LAGUNA for PCOS (polycystic ovarian syndrome) 01/08/2024 in [facility] with BENDARAM, JEY LAGUNA for PCOS (polycystic ovarian syndrome) 04/15/2024 in [facility] with BENDARAM, JEY LAGUNA for Obesity, Class III, BMI 40-49.9 (morbid obesity) 05/16/2024 in [facility] with HUEY CORTES for Obesity, Class III, BMI 40-49.9 (morbid obesity) Upcoming Endocrinology Appointments - Next 365 Days Visit Type Date Time Department EST HAM PATIENT 07/15/2024 10:40 AM ENDO [facility] V[facility] SPEC EST 08/01/2024 12:15 PM ENDO PSYL DIABETES CTR MAIN VIDEO GROUP EP EDU NON IRASEMA 08/26/2024 1:00 PM ENDO [facility] Requested Prescriptions Pending Prescriptions Disp Refills MONO-LINYAH 0.25-0.035 mg tablet [Pharmacy Med Name: Grundy-Linyah 0.25-35MG-MCG TABS] 28 tablet 2 Sig: TAKE [...] Prolactin Prolactin 4.4 - 33.8 ng/mL 15.2 [facility]05-08-2025 Miscellaneous Notes* Telephone Encounter - Chhaya Cano RN - 06/26/2024 8:04 AM EDT Images from the original note were not included. Patient confirms taking Grundy-Linyah and not Sprintec (also on med list). Pended for review. Most recent Endocrinology visit: Last encounter Visit on 05/16/2024 (with Peris Kibera) 10/26/2023 in [facility] [place] with BENDARAM, JEY LAGUNA for PCOS (polycystic ovarian syndrome) 01/08/2024 in [facility] [place] with BENDARAM, JEY LAGUNA for PCOS (polycystic ovarian syndrome) 04/15/2024 in [facility] [place] with BENDARAM, JEY LAGUNA for Obesity, Class III, BMI 40-49.9 (morbid obesity) 05/16/2024 in [facility] with KIBERA, PERIS for Obesity, Class III, BMI 40-49.9 (morbid obesity) Upcoming Endocrinology Appointments - Next 365 Days Visit Type Date Time Department EST HAM PATIENT 07/15/2024 10:40 AM ENDO [facility] [place] VIDEO SPEC EST 08/01/2024 12:15 PM ENDO PSYL DIABETES CTR MAIN VIDEO GROUP EP EDU NON IRASEMA 08/26/2024 1:00 PM ENDO [facility] Requested Prescriptions Pending Prescriptions Disp Refills MONO-LINYAH 0.25-0.035 mg tablet [Pharmacy Med Name: Grundy-Linyah 0.25-35MG-MCG TABS] 28 tablet 2 Sig: TAKE [...] - 33.8 ng/mL 15.2 documented in this encounterOur Lady Of [facility]04-15-2025 Discharge summary [facility] Medical Records Department [address] [place] [address] Emergency Department Summary 06/03/24 MR#: [id number] Acct: [id number] Name: MARION GUTIERREZ Rep #:[id number] : 1995 28 From: Jaylon Galicia MD PCP: Karuna Lim TOBACCO WAREHOUSE AGENT-C Status:REG ER Location: ED HPI History of Present Illness Chief Complaint: Neuro S/Sx Informant: patient and parent Narrative Narrative: 28-year-old female presents saying she been having a migraine for 1 week dsxtcbraidw-mle-gyacjzl medications that are not helping, she gets [...] had some jaw discomfort at times. [facility] Medical History Alcohol use Picking own [...] lauroxil 441 mg/1.6 441 mg IM .COMPLEX [facility] 12/18/22 10/23/23 History mL [...] chronic history of migraines, going to perform PUBLISHING SYSTEMS ANALYST imaging but in addition CT angiography including the chest, neck, and brain to evaluate for emergent arterial phenomenonsuch as dissection, aneurysm, stenosis, or less likely and her thrombosis. She did have some partial improvement with Benadryl and Reglan. I reviewed the imaging of her head, neck, chest, and I agree with the report which I also reviewed.Basically negative for any acute. Patient's blood pressures have mostly been in the 150/90 range. Luan not think she needs emergent treatment at [...] % (Auto) 64.3 Lymph % (Auto) 25.5 Grundy % (Auto) 8.9 Eos % (Auto) 0.5 [...] 3. Additional description as above. Reading Location: [facility] Head/Neck CTA 06/03/24 08:57 IMPRESSION: 1. [...] 3. Additional description as above. Reading Location: [facility] Rhythm Strip Rhythm Strip: Sinus Rhythm [...] Care Provider: Karuna Lim Referrals: Karuna Lim, TOBACCO WAREHOUSE AGENT-C [Primary Care Provider] - As soon as possible Print Language: Citizen Of [place] Disposition Disposition: Home, Self Care What to do if you have Problems For any increased pain, shortness of breath, bleeding, nausea or vomiting, chestpain, or any unexpected problems, contact your Primary Care Provider. Call [facility] ([phone]) or report tothe closest Emergency Room. Call 911 if necessary. 06/03/24 1303 Cosigner Signature (if applicable): CC: Karuna MCBRIDE TOBACCO WAREHOUSE AGENT-C Carina ~ Signed [facility]04-15-2025 Radiology Diagnostic study note [facility] Imaging Services [address] [place], [place] [address] CTA Head AND Neck W/ Contrast MR#: [id number] Acct: [id number] Name: MARION GUTIERREZ Rep #: [id number] : 1995 F 28 From: Theresa Forrester MD PCP: Karuna Lim TOBACCO WAREHOUSE AGENT-C Status: REG ER Study:CTA Head AND Neck W/ Contrast Date of E xam: 06/03/24 Exam# [id number] Ordering Dr: Jorgito Galicia MD PROCEDURE: CT [...] of the [place]. 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 Additional description as above. Reading Location: [id number] CC: Dr. Jaylon Galicia MD; Karuna [facility] TOBACCO WAREHOUSE AGENT-C Carina ~ Trestle Mainternance 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 [facility]04-15-2025 Radiology Diagnostic study note [facility] Imaging Services [address] [place] [address] CTA Chest W/WO Contrast MR#: [id number] Acct: [id number] Name: MARION GUTIERREZ Rep #: [id number] : 1995 F 28 From: Theresa Forrester MD PCP: Karuna Lim [facility] TOBACCO WAREHOUSE AGENT-C Status: REG ER Study:CTA Chest W/WO Contrast Date of Exam: 06/03/24 Exam# [id number] Ordering Dr: Jorgito Galicia MD PROCEDURE: CTA CHEST W/WO CONTRAST 06/03/2024 REASON FOR EXAM: CHEST PAIN, UNEQUAL BUE BP R SIDE NEURO SX TECHNIQUE: CTA imaging of the chest with intravenous contrast. Coronal and sagittal reconstruction series wereprovided. Maximum intensity projection (MIPs) and shaded surface [...] 3. Additional description as above. Reading Location: [id number] CC: Dr. Jaylon Galicia MD; [facility] TOBACCO WAREHOUSE AGENT-C Beam ~ Trestle Mainternance 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 [facility]04-15-2025 Radiology Diagnostic study note [facility] Imaging Services [address] [place] [address] Abdomen Limited MR#: [id number] Acct: [id number] Name: MARION GUTIERREZ Rep #: [id number] : 1995 F 28 From: Colby Espitia MD PCP: Karuna Lim [facility] TOBACCO WAREHOUSE AGENT-C Status: REG CLI Study:Abdomen Limited Date of Exam: 05/20 07/13 Exam# [id number] Ordering Dr: Juventino Lim [facility] TOBACCO WAREHOUSE AGENT-Kimi PROCEDURE: ABDOMEN LIMITED 06/03/2024 REASON FOR EXAM: [...] infiltration of the liver. Hepatomegaly. Reading Location: [place] [address] CC: [facility] TOBACCO WAREHOUSE AGENT-C Beam ~ Trestle Mainternance 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 [facility]04-14-2025 NoteHNO ID: [id number] Author: LAURA CARSON, PhD Service: ? Author Type: Psychologist Type: Progress Notes Filed: 06/02/2024 16:36 Note Text: [facility] EVALUATION DATE OF SERVICE: June 02, 2024 TIME OF SERVICE: 2:30 pm COST CENTER: [facility] CPT CODE: 07978 Brief Emotional/Behavioral Assessment with scoring/documentation [id number] Virtual PSYCH DIAGNOSTIC EVAL BILLING CODE: Leonid SESSION #: 1 The patient signed the Informed Consent for Psychological Evaluation AND Care Form, and the [facility] care insurance benefits, fees for service, [...] visit. Either the patient or their legal motor vehicle representative has been informed of the risks and benefits of -- and alternatives to -- treatment through a remote evaluation and consents to proceed with the evaluation remotely. IDENTIFYING INFORMATION Ms. Marion Gutierrez is a 28 year old female. She was referred by Dr. Cortes. [place] pt's mom was also in meeting. Mom is not currently medical power of family law attorney but they have discussed this. [...] Pollen Extracts Hives, Intolera (more content not 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[facility]04-14-[facility] History of Present illness Narrative* Laura Carson, PhD - 06/02/2024 2:34 PM EDT Images from the original note were not included. [facility] ENDOCR[facility] EVALUATION DATE OF SERVICE: June 02, 2024 TIME OF SERVICE: 2:30 pm COST CENTER: [facility] CPT CODE: 86134 Brief Emotional/Behavioral Assessment with scoring/documentation [id number] Virtual PSYCH DIAGNOSTIC EVAL BILLING CODE: Leonid SESSION #: 1 The patient signed the Informed Consent for Psychological Evaluation & Care Form, and the [facility] health care insurance benefits, fees for service, emergency procedures, and the limits of confidentiality that may pertain with any given case were discussed with the patient. Ms. Gutierrez was given a copy of the consent form. Virtual Visit:yes I have communicated my name and active licensure. If seen remotely, patient's identity and physicallocation were verified at the time of this visit. Either the patient or their legal motor vehicle representative has been informed of the risks and benefits of -- and alternatives to -- treatment through a remote evaluation and consents to proceed with the evaluation remotely. IDENTIFYING INFORMATION Ms. Marion Gutierrez is a 28 year old female. She was referred by Dr. Cortes. [place] pt's mom was also in meeting. Mom is not currently medical power of family law attorney but they have discussed this. [...] Inject 441 mg intramuscularly every 4 weeks. Financial Fairy TalesUCH VERIO TEST STRIPS test strip 1 Each four times daily. AJOVY SYRINGE 225 mg/1.5 mL syringe INJECT 1.5ML (1 SYRINGE) SUBCUTANEOUSLY EVERY MONTH imipramine HCl (TOFRANIL) 25 mg tablet Take 25 mg by mouth daily at bedtime. lactulose 10 gram/15 mL solution TAKE 45 ML BY MOUTH TWICE DAILY NEEDED FOR CONSTIPATION. miacosaTOUCH DELICA PLUS LANCET 33 gauge 1 Each [...] include family life. - Working with a ski tow operator on a Mediterranean diet. - Denies interest [...] AM. 1/2 sandwich of two pieces of Nigerien toast, a sausage bautista, fried egg. Glass [...] day. 2 cans of pop per day [facility] or chocolate milk 8 oz 2-3 times [...] is skipped four or more mornings per week:Yes 2. A strong urge to eat between [...] to every two weeks (18 months) Psychiatrist TOBACCO WAREHOUSE AGENT at same center [facility] - sees [...] on fire inside and I can't get itout. Obsessive Compulsive Disorder: Pt will geetha food, [...] has no children. The patient [facility] They help with adult life skills. 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 Pt takes medication on her own, except for Abilify injection about once per month. 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 gain: N/A MENTAL STATUS [...] 12:15 virtually Laura Carson, PhD, RD, LD, [facility], Psychologist documented in this encounterOur [facility] Evaluation note* Diagnosis Onset Date Resolution Status Admit Date Palpitations acute May 29, 2024 2:32pm Syncope acute May 29 2:32pm Hypertension chronic May 29, 2024 2:32pm [facility] Work Phone: 1(591) 390-570904-10-2025 Evaluation note* Diagnosis Onset Date Resolution Status [...] 2024 1:29pm Hypertension chronic July 24 1:29pm [facility] Work Phone: 1(377) 933-504804-10-2025 Evaluation note* Diagnosis Onset Date Resolution Status [...] 24 1:29pm Acute diarrhea acute September 2:24pm Torreon Techoz [facility] Work Phone: 1(721) 407-366303-28-2025 Instructions* Patient Instructions* Huey Cortes DO, PhD [...] me. - Continue working with your current ski tow operator, Carissa Sherwood, on a low-carb Mediterranean diet to help control your weight. - Increase physical activity as tolerated; a referral to an field enumerator will [facility] to help you develop an individualized exercise program. - Schedule a visit with the field enumerator through [employer] [facility]. - Schedule a visit with the endocrine psychologist through [facility] to address binge eating, emotional eating, [...] is in 3 months. documented in this encounterOur Lady Of [facility]03-28-2025 NoteHNO ID: [id number] Author: HUEY CORTES DO, PhD Service: ? Author Type: Physician Type: Progress Notes Filed: 05/16/2024 18:12 Note Text: [facility] CONS[facility] - NEW VIRTUAL VISIT I have communicated my name and active licensure. The patient's identity and physical location were verified at the time of this visit. Either the patient or their legal motor vehicle representative has been informed of the risks and benefits of -- and alternatives to -- treatment through a remote evaluation and consents to proceed with the evaluation remotely. The patient consented to the use of ambient PulsePoint software for draft documentation of the visit consistent with [facility]?s Notice of Privacy Practices. REASON OF VISIT: [...] include family life. - Working with a ski tow operator on a Mediterranean diet. - Denies interest [...] lose weight Pertinent medications causing weight gain: [place], imipramine, Lopressor, simvastatin Pertinent medications causing weight loss: None WEIGHT HISTORY AND TRAJECTORY: Weight Curve Childhood: Overweight High School: Overweight College: Overweight Adult years: Overweight Previous attempt for weight loss, including medications: Lifestyle modification, metformin Lifestyle Factors Diet and Eating behaviors 24h food recall: -- B: 10:30-11 AM. 1/2 sandwich of two pieces of Nigerien toast, a sausage bautista, fried egg. 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 Interest in bariatric surgery: Not sure MEN-2A/2B or MTC, including first degree relatives: Denies Pancreatitis/gastroparesis: Yes CAD/Stroke/Tachycar (more content not 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[facility] [id number] History of Present illness Narrative* Huey Cortes DO, PhD - 05/16/2024 8:49 AM EDT Images from the original note were not included. [facility] - NEW VIRTUAL VISIT I have communicated my name and active licensure. The patient's identity and physical location wereverified at the time of this visit. Either the patient or their legal motor vehicle representative has been informed of the risks and benefits of -- and alternatives to -- treatment through a remote evaluation andconsents to proceed with the evaluation remotely. The patient consented to the use of [employer] AI software for draft documentation of the visit consistent with [facility] Notice of Privacy Practices. REASON OF [...] include family life. - Working with a ski tow operator on a Mediterranean diet. - Denies interest [...] lose weight Pertinent medications causing weight gain: [place], imipramine, Lopressor, simvastatin Pertinent medications causing weight loss: None WEIGHT HISTORY AND TRAJECTORY: Weight Curve Childhood: Overweight High School: Overweight College: Overweight Adult years: Overweight Previous attempt for weight loss, including medications: Lifestyle modification, metformin Lifestyle Factors Diet and Eating behaviors 24h food recall: -- B: 10:30-11 AM. 1/2 sandwich of two pieces of Nigerien toast, a sausage bautista, fried egg. 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 Financial Fairy TalesUCH VERIO TEST STRIPS test strip 1 Each [...] Obesity, Class III, BMI 40-49.9 (morbid obesity) ([facility]) (E66.01) - Current weight 295.5 lbs. - Discussed importance of dietary modifications, emphasizing a low-carb diet to reduce carbohydrateand saturated fat intake. - Patient is already working with a ski tow operator, Carissa Sherwood, on a Mediterranean diet. - Referred to field enumerator to develop an individualized exercise program considering patient's limitations due to dizziness. - Referred to endocrine psychologist to address behavioral strategies for weight management, including control of binge eating, emotional eating, and portion sizes. - Follow-up in 3 months to monitor progress. 2. Type 2 diabetes mellitus with other specified complication, without long-term current use of insulin ([facility]) (E11.69) - Diagnosed 2-3 years ago; A1c [...] accompanying intellectual impairment, requiring support (level 1) ([facility]) (F84.0) - Continue current management and support. 9. PCOS (polycystic ovarian syndrome) (E28.2) - Continue current management. 10. Irritable bowel syndrome with diarrhea (K58.0) - Symptoms vary between diarrhea and constipation. - Continue current management with Miralax and lactulose as needed. 11. Bipolar affective disorder, remission status unspecified ([facility]) (F31.9) - Continue current medications: lithium, aripiprazole [...] 4 - Moderate Huey Cortes DO, PhD [facility] documented in this encounterOur Lady Of [facility]03-27-[facility]25 Discharge summary [facility] Medical Records Department [address] [place] [address] Emergency Department Summary 05/15/24 MR#: [id number] Acct: [id number] Name: MARION GUTIERREZ Rep #:[id number] : 1995 28 From: Stan Lin DO PCP: REED Sotomayor, TOBACCO WAREHOUSE AGENT-C Statu s:REG ER Location: ED HPI History [...] management. Patient denies any sick contacts [facility] Medical History Alcohol use Picking own [...] mg/1.6 441 mg IM .COMPLEX [facility] 12/18/22 10/23/23 History mL suspension, ext.rel. [...] following commands and that she was at [facility] year is 2024. NIH of 0 [...] % (Auto) 58.9 Lymph % (Auto) 31.2 Grundy % (Auto) 9.0 Eos % (Auto) 0.4 [...] 21:00 IMPRESSION: No Acute Findings. Reading Location: [facility] Discharge Plan Triage Chief Complaint: Chest [...] Naina Da Silva Referrals: Naina Da Silva, TOBACCO WAREHOUSE AGENT-C [Primary Care Provider] - Activity Restrictions/Additional Instructions: Follow with your primary care physician outpatient setting. Return with worsening symptoms or concerns. Chest x-ray is normal and your blood work was normal. Use your Reglan that you have at home fornausea and vomiting. Print Language: Citizen [place] Disposition Disposition: Home, Self Care What to do if you have Problems For any increased pain, shortness of breath, bleeding, nausea or vomiting, chestpain, or any unexpected problems, contact your Primary Care Provider. Call [facility] ([phone]) or report tothe closest Emergency Room. Call 911 if necessary. 05/15/24 0013 Cosigner Signature (if applicable): CC: REED TOBACCO WAREHOUSE AGENTJovanna Da Silva ~ Signed [facility]03-26-2025 Radiology Diagnostic study note [facility] Imaging Services [address] [place] [address] Chest 1 View (Portable) MR#: [id number] Acct: [id number] Name: FedeJESÚSMARION LORENZN Rep #: [id number] : 1995 F 28 From: Jocelyne Strickland MD PCP: REED Sotomayor, TOBACCO WAREHOUSE AGENT-C Status: PRE ER Study:Chest 1 View (Portable) Date of Exam: 05/14/24 Exam# [id number] Ordering Dr: Provider ,Ed P. PROCEDURE: CHEST [...] (Portable) IMPRESSION: No Acute Findings. Reading Location: [facility] CC: REED TOBACCO WAREHOUSE AGENT-Kimi Da Silva; ED PHYSICIAN PROVIDER ~ Trestle Mainternance 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 [facility]03-20-2025 Discharge summary [facility] Medical Records Department [address] [place] [address] Emergency Department Summary 05/08/24 MR#: [id number] Acct: [id number] Name: DOCGERDAMARION Rep #:[id number] : 1995 28 From: Stan Lin DO PCP: REED Sotomayor, TOBACCO WAREHOUSE AGENT-C Statu s:REG ER Location: ED HPI History [...] further. Patient denies recent sick contacts. [facility] Medical History Alcohol use Picking own [...] Patient follow commands that she was at [facility] years 2024 Skin: Warm, dry, intact [...] % (Auto) 58.1 Lymph % (Auto) 30.5 Grundy % (Auto) 10.3 H Eos % (Auto) [...] Clarity Clear Urine pH 7.0 Ur Specific [place] 1.005 Urine Protein 15 H Urine Glucose [...] abdominopelvic finding. 2. Moderate hepatomegaly. Reading Location: [facility] Discharge Plan Triage Chief Complaint: Nausea/Vomiting [...] Naina Da Silva Referrals: Naina Da Silva, TOBACCO WAREHOUSE AGENT-C [Primary Care Provider] - Activity Restrictions/Additional Instructions: Follow-up your doctor in outpatient setting. Return with worsening symptoms or concerns. Your CT today did not show anything surgical. Use the prescriptions are sent to your pharmacy as prescribed. Print Language: Citizen [place] Disposition Disposition: Home, Self Care What to do if you have Problems For any increased pain, shortness of breath, bleeding, nausea or vomiting, chestpain, or any unexpected problems, contact your Primary Care Provider. Call [facility] ([phone]) or report tothe closest Emergency Room. Call 911 if necessary. 05/08/24 1717 Cosigner Signature (if applicable): CC: REED TOBACCO WAREHOUSE AGENT-C Naina Da Silva ~ Signed [facility]03-20-2025 Radiology Diagnostic study note [facility] Imaging Services [address] [place] [address] Abdomen/Pelvis W IV Cont ONLY MR#: [id number] Acct: [id number] Name: MARION GUTIERREZ Rep #: [id number] : 1995 F 28 From: Jocelyne Strickland MD PCP: REED Sotomayor, TOBACCO WAREHOUSE AGENT-C Status: REG ER Study:Abdomen/Pelvis W IV Cont ONLY Date of E xam: 05/08/24 Exam# [id number] Ordering Dr: Jojo Lin DO PROCEDURE: ABDOMEN/PELVIS [...] abdominopelvic finding. 2. Moderate hepatomegaly. Reading Location: [id number] CC: Kimi TOBACCO WAREHOUSE AGENT-C Naina Da Silva; Dr. Stan Lin DO ~ Trestle Mainternance 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 [facility]03-20-2025 Discharge summary Author Stan Lin [facility] Note Date/Time May 08, 2024 5:1 7pm [facility] Medical Records Department [address] [place] [address] Emergency Department Summary 05/08/24 MR#: [id number] Acct: [id number] Name: MARION GUTIERREZ Rep #:[id number] : 1995 28 From: Stan Lin DO PCP: REED Sotomayor, TOBACCO WAREHOUSE AGENT-C Statu s:REG ER Location: ED HPI History [...] further. Patient denies recent sick contacts. [facility] Medical History Alcohol use Picking own [...] mg/1.6 441 mg IM .COMPLEX [facility] 12/18/22 10/23/23 History mL suspension, ext.rel. [...] Patient follow commands that she was at [facility] years 2024 Skin: Warm, dry, intact [...] % (Auto) 58.1 Lymph % (Auto) 30.5 [place] % (Auto) 10.3 H Eos % (Auto) [...] Clarity Clear Urine pH 7.0 Ur Specific [place] 1.005 Urine Protein 15 H Urine Glucose [...] abdominopelvic finding. 2. Moderate hepatomegaly. Reading Location: [facility] Discharge Plan Triage Chief Complaint: Nausea/Vomiting [...] Naina Da Silva Referrals: Naina Da Silva, TOBACCO WAREHOUSE AGENT-C [Primary Care Provider] - Activity Restrictions/Additional Instructions: Follow-up your doctor in outpatient setting. Return with worsening symptoms or concerns. Your CT today did not show anything surgical. Use the prescriptions are sent to your pharmacy as prescribed. Print Language: [place] Disposition Disposition: Home, Self Care What to do if you have Problems For any increased pain, shortness of breath, bleeding, nausea or vomiting, chestpain, or any unexpected problems, contact your Primary Care Provider. Call [facility] ([phone]) or report to the closest Emergency Room. Call 911 if necessary. 05/08/247 <Electronically signed by Stan Lin DO> Cosigner Signature (if applicable): CC: REED TOBACCO WAREHOUSE AGENT-C Naina Da Silva ~ Signed [facility] Work Phone: [phone] Instructions* Patient Instructions* Jey Johnson MD - 04/15/2024 11:39 AM EST Endocrine weight amangement referral given, but if you choose to stay in [place], then you can schedule with OBGYN in this building Continue with the same control for now, making sure not to miss any pills during the month course If it continues to be irregular, please keep us informed documented in this encounterOur Lady Of [facility]02-25-2025 NoteHNO ID: [id number] Author: JEY JOHNSON MD Service: ? Author Type: Physician Type: Progress Notes Filed: 04/20/2024 15:26 Note Text: Endocrinology and Metabolism [place] Follow up note Chief complaint: Evaluation of [...] Mental Status Change Sea (more content not 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[facility]02-25-2025 History of Present illness Narrative* Jey Johnson MD - 04/15/2024 11:26 AM EST Endocrinology and Metabolism [facility] [place] Follow up note Chief complaint: Evaluation of [...] 07-23-2023 CORTISOL,F/24hr 46 ug/24 hr High 6-42 [facility] CORTISOL,U FREE 16 ug/L Normal Undefined [facility] Metanephrine Frac 24 HR UR on 07-23-2023 Metaneph,UR 24H 68 ug/24 hr Normal 36-209 [facility] Metanephrines,U 24 ug/L Normal Undefined [facility] Normetan,UR 24h 522 ug/24 hr High 95-449 [facility] Normetanephrine 183 ug/L Normal Undefined [facility] Catecholamines, 24 UR on 07-20-2023 Dopamine, Urine 580 ug/L Normal Undefined [facility] Dopamine,U,24HR 957 ug/24 hr High 0-510 [facility] Epineph.,U,24HR 5 ug/24 hr Normal 0-20 [facility] Epinephrine, U 3 ug/L Normal Undefined [facility] Norepin.,U,24HR 134 ug/24 hr Normal 0-135 [facility] Comment on above: Order Comment: Test(s) 930530-Kofqtelotao, Urine; - Norepinephrine, Ur; 903099-Xaelyasz, Urinewas developed and its performance characteristicsdetermined by [employer]. It has notbeen cleared or approvedby the Food and Drug Administration. Performed By: #### L3600.0150 ####[facility] [address] [place], [place],[address] Norepinephrin,U 81 ug/L Normal Undefined [facility] Adrenocorticotropic Hormone on 07-17-2023 ACTH 9.7 pg/mL Normal 7.2-63.3 [facility] CORTISOL SERUM on 07-17-2023 CORTISOL 20.10 ug/dL Normal 3.44-22.45 [facility] Catecholamines, Plasma on 07-17-2023 DOPAMINE <30 Normal 0-48 [facility] EPINEPHRINE <15 Normal 0-62 [facility] NOREPINEPHRINE 429 pg/mL Normal 0-874 [facility] Gastrin, Serum on 07-17-2023 GASTRIN 265 pg/mL High 0-115 [facility] Insulin Level on 07-17-2023 INSULIN,FASTING 93.7 uIU/mL High 2.6-24.9 [facility] Insulin Like Growth Factor on 07-17-2023 SOMATOMEDIN C 122 ng/mL Normal 91-308 [facility] Chromogranin A 206.0 ng/mL Abnormal 0.0-101.8 [facility] Renin/Aldosterone Activity on 07-17-2023 ALD/RENIN RATIO 11.6 Normal 0.0-30.0 [facility] Performed By: #### L3400.1350, L3300.3500, L3300.1800, L3430.0100, L3300.1000, L3300.1050, L3100.4810 ####[facility] [address] [place], [place], [id number] ALDOSTERONE,S 45.0 ng/dL High 0.0-30.0 [facility] RENIN, PLASMA 3.873 ng/mL/hr Normal 0.167-5.380 [facility] BUN/CRE 18.1 RATIO Normal 10-20 [facility] CA,Total 9.0 mg/dL Normal 8.5-10.1 [facility] Chloride [Moles/Vol] 110 mmol/L High 98-107 [facility] CO2 [Moles/Vol] 25.0 mmol/L Normal 21.0-32.0 [facility] Creatinine [Mass/Vol] 0.66 mg/dL Normal 0.55-1.02 [facility] Performed By: #### L100.0100, L500.4050, L506.1000, L501.58351, L501.9520, L506.0400, L501.9060 ####[facility] [address] [place], [place], [id number] EST GFR - AA 138 mL/min Normal >60 [facility] Performed By: #### L100.0100, L500.4050, L506.1000, L501.48125, L501.9520, L506.0400, L501.9060 ####[facility] [address] [place], [place], [id number] GAP 3 Low 5-15 [facility] GFR/1.73 sq M.predicted among non-blacks MDRD (S/P/Bld) [Vol rate/Area] 114 mL/min/(1.73_m2) Normal>60 [facility] Globulin (S) [Mass/Vol] 3.8 g/dL Normal 2.2-4.2 [facility] Glucose [Mass/Vol] 124 mg/dL High 74-106 [facility] Performed By: #### L100.0100, L500.4050, L506.1000, L501.39349, L501.9520, L506.0400, L501.9060 ####[facility] [address] [facility] [address] Potassium [Moles/Vol] 4.0 mmol/L Normal 3.5-5.1 [facility] Sodium [Moles/Vol] 138 mmol/L Normal 136-145 [facility] T PROT 7.0 g/dL Normal 6.4-8.2 [facility] Urea nitrogen [Mass/Vol] 12 mg/dL Normal 7-18 [facility] Free T3 on 07-05-2023 Free T3 [Mass/Vol] 2.4 pg/mL Normal 2.18-3.98 [facility] Comment on above: Performed By: #### L100.0100, L500.4050, L506.1000, L501.68713, L501.9520, L506.0400, L501.9060 ####[facility] [address] [facility] [address] [place] on 07-05-2023 LI 0.80 mmol/L Normal 0.60-1.20 [facility] T4 Free Direct on 07-05-2023 T4 FREE DIRECT 1.04 ng/dL Normal 0.76-1.46 [facility] Comment on above: Performed By: #### L100.0100, L500.4050, L506.1000, L501.25288, L501.9520, L506.0400, L501.9060 ####[facility] [address] [place], [address] Thyroid Stim Hormone (TSH) on 07-05-2023 TSH 2.10 uIU/mL Normal 0.358-3.74 [facility] Vitamin D,25 Hydroxy on 07-05-2023 Vitamin D 25-OH 30.3 ng/mL Normal [facility] Latest Ref Rng 12/05/2023 Sex Hormone [...] 24 hr urine free cortisol checked at [facility], along with 24 hr urine [...] Moderate Jey Johnson MD Endocrinology Associate Staff [facility] Endocrinology and Metabolism [place] [phone] documented in this encounterOur Lady Of [facility]25 Telephone encounter Note * Telephone Encounter - Cora Bruce LPN - 04/15/2024 7:34 AM EST Left message for patient with negative results.Cora Bruce LPN [facility]02-25-2025 Miscellaneous Notes* Telephone Encounter - Cora Bruce LPN - 04/15/2024 7:34 AM EST Left message for patient with negative results.Cora Bruce LPN * Telephone Encounter - Maru Galicia PA - 04/15/2024 7:09 AM EST Negative COVID flu RSV documented in this encounterOur Lady Of [facility]02-25-2025 Telephone encounter Note * Telephone Encounter - Maru Galicia PA - 04/15/2024 7:09 AM EST Negative COVID flu RSV [facility] Work Phone: [phone]) 322-535802-24-2025 EmuxCGIU-VYE-3 (AGENT OF COVID-19) RNA: Not detected INFLUENZA A RNA: Not detected INFLUENZA B RNA: Not detected RESPIRATORY SYNCYTIAL VIRUS (RSV) RNA: Not detectedMain Campus Medical CenterComment on above:Performed By: #### [id number] ####[facility] LABCLIA [id number] [place] [id number] [facility]02-24-2025 NoteHNO ID: [id number] Author: LINCOLN BALDERAS MD Service: ? Author Type: Physician Type: Progress Notes Filed: 04/14/2024 16:34 Note Text: Patient presents with: Diarrhea: vomiting, cough, chills and fever x 4 days HPI: Feeling sick starting 4 days ago. 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 Continue supportive care for viral illness. She is beyond the therapeutic window for tamiflu. Lincoln Balderas, [facility]02-24-2025 History of Present illness Narrative* Lincoln Balderas MD - 04/14/2024 4:22 PM EST Patient presents with: Diarrhea: vomiting, cough, chills and fever x 4 days HPI: Feeling sick starting 4 days ago. 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 Continue supportive care for viral illness. She is beyond the therapeutic window for tamiflu. Lincoln Balderas MD documented in this encounterOur Lady Of [facility]01-06-2025 History of Present illness Narrative* Carissa Sherwood, RD - 02/25/2024 9:00 AM EST [facility] Medical Nutrition Therapy Visit Type: Virtual: I have discussed the nature of this visit with the patient which will occur via [employer] (Phone, Virtual Visit) and she agrees to proceed with this interaction.I have communicated my name and active licensure. The patient's identity and physical location were verified at the time of this visit. Either the patient or their legal motor vehicle representative has been informed of the risks [...] Can of spaghetti and meatballs, OR Salad (Nigerien dressing, cheese, fried onions, croutons, wanton strips, [...] relates skipping meals in the past and [facility] Why Weight Program (relates no success w/ wt loss w/ this program) - Current medications for wt loss: - Monitoring BG via [employer] Richard 2, Pt reports readings: -- Very [...] BY MOUTH TWICE DAILY NEEDED FOR CONSTIPATION. miacosaTOUCH DELICA PLUS LANCET 33 gauge 1 Each [...] lbs, 10% weight loss = 268 lbs [place] body weight: 61.6 kg (135 lb 12.9 [...] their referring provider for a referral endocrinology field enumerator services. Possible Medications/ Supplements for PCOS and [...] by: Carissa Sherwood RD documented in this encounterOur Lady Of [facility]cy [facility]01-06-2025 NoteHNO ID: [id number] Author: CARISSA SHERWOOD RD Service: ? Author Type: Registered Dietitian Type: Progress Notes Filed: 02/25/2024 11:20 Note Text: [facility] Medical Nutrition Therapy Visit Type: Virtual: I have discussed the nature of this visit with the patient which will occur via [employer] (Phone, Virtual Visit) and she agrees to proceed with this interaction.I have communicated my name and active licensure. The patient's identity and physical location were verified at the time of this visit. Either the patient or their legal motor vehicle representative has been informed of the risks [...] Can of spaghetti and meatballs, OR Salad (Nigerien dressing, cheese, fried onions, croutons, wanton strips, [...] relates skipping meals in the past and [facility] Why Weight Program (relates no success [...] Inject 441 mg intramuscularly every 4 weeks. miacosaTOUCH VERIO TEST STRIPS test strip 1 Each [...] BY MOUTH TWICE DAILY NEEDED FOR CONSTIPATION. miacosaTOUCH DELICA PLUS LANCET 33 gauge 1 Each [...] Lab Results Component V (more content not 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[facility]12-06-2024 NoteHNO ID: [id number] Author: LOUIS SCHMIDT APRN.[facility] Service: ? Author Type: Nurse Practitioner Type: [...] BY MOUTH TWICE DAILY NEEDED FOR CONSTIPATION. miacosaTOUCH DELICA PLUS LANCET 33 gauge 1 Each [...] two times a day for 7 days. qshmzpwf-jmwubzhlw-oodzcvkmkyfnhb (CORTISPORIN) 3.5-10,000-1 mg/mL-unit/mL-% otic suspension Use 3 [...] ICD9: 382.9, ICD10: H66.92 (primary diagnosis) - EHLYEZZS-GSXCLWNOH-DLJPISQBD 3.5 MG-10,000 UNIT/ML-1 % EAR DROPS,SUSP 2. Acute otitis externa of left ear, unspecified type - ICD9: 380.10, ICD10: H60.502 - AMOXICILLIN 875 MG TABLET Prescription instructions reviewed (more content not 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[facility]12-06-2024 History of Present illness Narrative* Louis Schmidt APRN.[employer] - 01/25/2024 12:54 PM EST CC: Patient [...] two times a day for 7 days. kbsphbdh-cyaafnqks-xbxsodblbkbfvr (CORTISPORIN) 3.5-10,000-1 mg/mL-unit/mL-% otic suspension Use 3 [...] ICD9: 382.9, ICD10: H66.92 (primary diagnosis) - BCPBZTTC-OQNDDXIAY-SWJRDRDLT 3.5 MG-10,000 UNIT/ML-1 % EAR DROPS,SUSP 2. Acute otitis externa of left ear, unspecified type - ICD9: 380.10, ICD10: H60.502 - AMOXICILLIN 875 MG TABLET Prescription instructions reviewed with patient as applicable. Potential red flag symptoms discussed with the patient. Reviewed appropriate action plan to take if red flag symptoms occur. Patient agreeable to treatment plan. Louis Schmidt APRN.FISH documented in this encounterOur Lady Of [facility]12-06-2024 Telephone encounter Note * Telephone Encounter - Natalee Rodriguez LPN - 01/25/2024 10:48 AM EST Patient given results and verbalized understanding of instructions given.. Natalee Rodriguez LPN [facility]12-06-2024 Miscellaneous Notes* Telephone Encounter - Natalee Rodriguez LPN - 01/25/2024 10:48 AM EST Patient given results and verbalized understanding of instructions given.. Natalee Rodriguez LPN * Telephone Encounter - Mallika Mo APRN.CNP - 01/25/2024 7:11 AM EST Please notify that covid/flu/rsv testing negative. Continue with plan of care as discussed during visit. documented in this encounterOur Lady Of [facility]cy [facility]12-06-2024 Telephone encounter Note * Telephone Encounter - Mallika Mo APRN.CNP - 01/25/2024 7:11 AM EST Please notify that covid/flu/rsv testing negative. Continue with plan of care as discussed during visit. [facility] Work Phone: 1(741) 952-579612-05-2024 Instructions* Patient Instructions* Maru Galicia PA - [...] for a few days. documented in this encounterOur Lady Of Mercy [facility]12-05-2024 NoteHNO ID: [id number] Author: MARU GALICIA PA Service: ? Author Type: Physician Bath Mix Operator Type: Progress Notes Filed: 01/24/2024 14:08 Note Text: This note was created using Cloud[employer]. Subjective Marion Gutierrez is a 28 year [...] Inject 441 mg intramuscularly every 4 weeks. miacosaTOUCH VERIO TEST STRIPS test strip 1 Each [...] BY MOUTH TWICE DAILY NEEDED FOR CONSTIPATION. miacosaTOUCH DELICA PLUS LANCET 33 gauge 1 Each [...] (primary diagnosis) - suspe (more content not 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[facility]12-05-[facility] History of Present illness Narrative* Maru Galicia PA - 01/24/2024 2:03 PM EST This note was created using Coronado Biosciencesriter. Subjective Marion Gutierrez is a 28 year [...] Inject 441 mg intramuscularly every 4 weeks. Financial Fairy TalesUCH VERIO TEST STRIPS test strip 1 Each [...] BY MOUTH TWICE DAILY NEEDED FOR CONSTIPATION. miacosaTOUCH DELICA PLUS LANCET 33 gauge 1 Each [...] ER evaluation. EDELMIRA Gillespie documented in this encounterOur [facility] Evaluation note* Diagnosis Onset Date Resolution Status Admit Date Palpitations acute December h, 2023 2:29pm Syncope acute January 14, 2024 2:29pm Hypertension chronic December, 2023 2:29pm [facility] Work Phone: 1(819) 848-248611-19-2024 Instructions* Patient Instructions* Jey Johnson MD - 01/08/2024 12:06 PM EST Please taking control pills prescribed Schedule for a dietitian visit for conservative weight loss documented in this encounterOur Lady Of Mercy [facility]11-19-2024 NoteHNO ID: [id number] Author: JEY JOHNSON MD Service: ? Author Type: Physician Type: Progress Notes Filed: 01/09/2024 18:32 Note Text: Endocrinology and Metabolism [facility] [place] Follow up note Chief complaint: Evaluation of [...] Sitting, BP Cuff Siz (more content not 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[facility]11-19-2024 History of Present illness Narrative* Jey Johnson MD - 01/08/2024 12:00 PM EST Endocrinology and Metabolism [facility] [place] Follow up note Chief complaint: Evaluation of [...] 07-23-2023 CORTISOL,F/24hr 46 ug/24 hr High 6-42 [facility] CORTISOL,U FREE 16 ug/L Normal [facility] Metanephrine Frac 24 HR UR on 07-23-2023 Metaneph,UR 24H 68 ug/24 hr Normal 36-209 [facility] Metanephrines,U 24 ug/L Normal Undefined [facility] Normetan,UR 24h 522 ug/24 hr High 95-449 [facility] Normetanephrine 183 ug/L Normal Undefined [facility] Catecholamines, 24 UR on 07-20-2023 Dopamine, Urine 580 ug/L Normal [facility] Dopamine,U,24HR 957 ug/24 hr High 0-510 [facility] Epineph.,U,24HR 5 ug/24 hr Normal 0-20 [facility] Epinephrine, U 3 ug/L Normal Undefined [facility] Norepin.,U,24HR 134 ug/24 hr Normal 0-135 [facility] Comment on above: Order Comment: Test(s) 966075-Krshzmiaiao, Urine; 273991- Norepinephrine, Ur; 625345-Nziihhcp, Urinewas developed and its performance characteristicsdetermined by [facility]. It has notbeen cleared or approvedby the Food and Drug Administration. Performed By: #### L3600.0150 ####[facility] [address] [place], [place],[address] Norepinephrin,U 81 ug/L Normal Undefined [facility] Adrenocorticotropic Hormone on 07-17-2023 ACTH 9.7 pg/mL Normal 7.2-63.3 [facility] CORTISOL SERUM on 07-17-2023 CORTISOL 20.10 ug/dL Normal 3.44-22.45 [facility] Catecholamines, Plasma on 07-17-2023 DOPAMINE <30 Normal 0-48 [facility] EPINEPHRINE <15 Normal 0-62 [facility] NOREPINEPHRINE 429 pg/mL Normal 0-874 [facility] Gastrin, Serum on 07-17-2023 GASTRIN 265 pg/mL High 0-115 [facility] Insulin Level on 07-17-2023 INSULIN,FASTING 93.7 uIU/mL High 2.6-24.9 [facility] Insulin Like Growth Factor on 07-17-2023 SOMATOMEDIN C 122 ng/mL Normal 91-308 [facility] Chromogranin A 206.0 ng/mL Abnormal 0.0-101.8 [facility] Renin/Aldosterone Activity on 07-17-2023 ALD/RENIN RATIO 11.6 Normal 0.0-30.0 [facility] Performed By: #### L3400.1350, L3300.3500, L3300.1800, L3430.0100, L3300.1000, L3300.1050, L3100.4810 ####[facility] [address] [place], [address] ALDOSTERONE,S 45.0 ng/dL High 0.0-30.0 [facility] RENIN, PLASMA 3.873 ng/mL/hr Normal 0.167-5.380 [facility] BUN/CRE 18.1 RATIO Normal 10-20 [facility] CA,Total 9.0 mg/dL Normal 8.5-10.1 [facility] Chloride [Moles/Vol] 110 mmol/L High 98-107 [facility] CO2 [Moles/Vol] 25.0 mmol/L Normal 21.0-32.0 [facility] Creatinine [Mass/Vol] 0.66 mg/dL Normal 0.55-1.02 [facility] Performed By: #### L100.0100, L500.4050, L506.1000, L501.40065, L501.9520, L506.0400, L501.9060 ####[facility] [address] [place], [address] EST GFR - AA 138 mL/min Normal >60 [facility] Performed By: #### L100.0100, L500.4050, L506.1000, L501.37426, L501.9520, L506.0400, L501.9060 ####[facility] [address] [place], [address] GAP 3 Low 5-15 [facility] GFR/1.73 sq M.predicted among non-blacks MDRD (S/P/Bld) [Vol rate/Area] 114 mL/min/(1.73_m2) Normal>60 [facility] Globulin (S) [Mass/Vol] 3.8 g/dL Normal 2.2-4.2 [facility] Glucose [Mass/Vol] 124 mg/dL High 74-106 [facility] Performed By: #### L100.0100, L500.4050, L506.1000, L501.70610, L501.9520, L506.0400, L501.9060 ####[facility] [address] [place], [address] Potassium [Moles/Vol] 4.0 mmol/L Normal 3.5-5.1 [facility] Sodium [Moles/Vol] 138 mmol/L Normal 136-145 [facility] T PROT 7.0 g/dL Normal 6.4-8.2 [facility] Urea nitrogen [Mass/Vol] 12 mg/dL Normal 7-18 [facility] Free T3 on 07-05-2023 Free T3 [Mass/Vol] 2.4 pg/mL Normal 2.18-3.98 [facility] Comment on above: Performed By: #### L100.0100, L500.4050, L506.1000, L501.82798, L501.9520, L506.0400, L501.9060 ####[facility] [address] [place], [address] [place] on 07-05-2023 LI 0.80 mmol/L Normal 0.60-1.20 [facility] T4 Free Direct on 07-05-2023 T4 FREE DIRECT 1.04 ng/dL Normal 0.76-1.46 [facility] Comment on above: Performed By: #### L100.0100, L500.4050, L506.1000, L501.52306, L501.9520, L506.0400, L501.9060 ####[facility] [address] [place], [address] Thyroid Stim Hormone (TSH) on 07-05-2023 TSH 2.10 uIU/mL Normal 0.358-3.74 [facility] Vitamin D,25 Hydroxy on 07-05-2023 Vitamin D 25-OH 30.3 ng/mL Normal [facility] Latest Ref Rng 12/05/2023 Sex Hormone [...] 24 hr urine free cortisol checked at [facility], along with 24 hr urine [...] Moderate Jey Johnson MD Endocrinology Associate Staff [facility] Endocrinology and Metabolism [facility] [place] [phone] documented in this encounterOur Lady Of [facility]11-11-2024 History of Present illness Narrative* Alisson Lake NP - 12/31/2023 2:00 PM EST Images from [...] liver Migraines (CMS/HCC) ER 08/29/21 for [facility] Polycystic ovarian disease Suicide attempt [...] plan, and return instructions. documented in this encounterMissouri Baptist Medical CenterIpzjjapsmg26-79-7292 Telephone encounter Note* Telephone Encounter - Amy Bragg RN - 12/19/2023 12:19 PM EDT Signed record release received from [facility] requesting previous OV notes from Dr. Johnson. Pt had 1 OV in 10/2023. This was faxed electronically through [facility]. Amy Bragg RN December 19, 2023 12:20 PM [facility]10-30-[facility] Miscellaneous Notes* Telephone Encounter - Amy Bragg RN - 12/19/2023 12:19 PM EDT Signed record release received from [facility] requesting previous OV notes from Dr. Johnson. Pt had 1 OV in 10/2023. This was faxed electronically through [employer]. Amy Bragg RN December 19, 2023 12:20 PM documented in this encounterOur Lady Of [facility]10-28-2024 Telephone encounter Note * Telephone Encounter - Rhonda Duong - 12/17/2023 9:02 AM EDT Pt's mom called and schedule in office appt for 12/20/23 [facility] CenterYvhdqefjby95-77-9315 Miscellaneous Notes* Telephone Encounter - Rhonda Duong [...] injection. Last dispensed 11/19/23. documented in this encounterMissouri Baptist Medical CenterWgssuwzxxs75-44-2707 Telephone encounter Note* Telephone Encounter - Rhonda Duong - 12/12/2023 10:48 AM EDT LM today- on patient's cell ph#-12/12/23-for pt to call back and schedule an in office appt [facility] CenterPbnyrwqlsj70-48-7075 Telephone encounter Note* Telephone Encounter - Neli Russell MA - 12/06/2023 10:51 AM EDT Chart reviewed. Pt due for appt. Please call to schedule prior to next injection. Last dispensed 11/19/23. [facility] CenterIiriohfnmc82-40-7148 History of Present illness Narrative* Louis Schmidt APRN.[employer] - 11/27/2023 7:51 PM EDT Patient came [...] have any testing available. documented in this encounterOur Lady Of [facility]09-06-2024 Instructions* Patient Instructions* Jey Johnson MD - 10/26/2023 3:49 PM EDT Please discontinue spironolactone and provera for abpout 4 to 6 weeks before doing these labs ordered All labs to be done on fasting at 8 am Hold any other over the counter supplements for 3 days atleast before labs. Avoid any steroids until the labs are drawn documented in this encounterOur Lady Of [facility]09-06-2024 History of Present illness Narrative* Jey Johnson MD - 10/26/2023 3:31 PM EDT Endocrinology and Metabolism [facility] [place] Initial Clinic Visit Note REASON FOR CONSULT: [...] 07-23-2023 CORTISOL,F/24hr 46 ug/24 hr High 6-42 [facility] CORTISOL,U FREE 16 ug/L Normal Undefined [facility] Metanephrine Frac 24 HR UR on 07-23-2023 Metaneph,UR 24H 68 ug/24 hr Normal 36-209 [facility] Metanephrines,U 24 ug/L Normal Undefined [facility] Normetan,UR 24h 522 ug/24 hr High 95-449 [facility] Normetanephrine 183 ug/L Normal Undefined [facility] Catecholamines, 24 UR on 07-20-2023 Dopamine, Urine 580 ug/L Normal Undefined [facility] Dopamine,U,24HR 957 ug/24 hr High 0-510 [facility] Epineph.,U,24HR 5 ug/24 hr Normal 0-20 [facility] Epinephrine, U 3 ug/L Normal Undefined [facility] Norepin.,U,24HR 134 ug/24 hr Normal 0-135 [facility] Comment on above: Order Comment: Test(s) 519150-Ojahfasviff, Urine; - Norepinephrine, Ur; 840294-Qhayrvgw, Urinewas developed and its performance characteristicsdetermined by [facility]. It has notbeen cleared or approvedby the Food and Drug Administration. Performed By: #### L3600.0150 ####[facility] [address], [place],[address] Norepinephrin,U 81 ug/L Normal Undefined [facility] Adrenocorticotropic Hormone on 07-17-2023 ACTH 9.7 pg/mL Normal 7.2-63.3 [facility] CORTISOL SERUM on 07-17-2023 CORTISOL 20.10 ug/dL Normal 3.44-22.45 [facility] Catecholamines, Plasma on 07-17-2023 DOPAMINE <30 Normal 0-48 [facility] EPINEPHRINE <15 Normal 0-62 [facility] NOREPINEPHRINE 429 pg/mL Normal 0-874 [facility] Gastrin, Serum on 07-17-2023 GASTRIN 265 pg/mL High 0-115 [facility] Insulin Level on 07-17-2023 INSULIN,FASTING 93.7 uIU/mL High 2.6-24.9 [facility] Insulin Like Growth Factor on 07-17-2023 SOMATOMEDIN C 122 ng/mL Normal 91-308 [facility] Chromogranin A 206.0 ng/mL Abnormal 0.0-101.8 [facility] Renin/Aldosterone Activity on 07-17-2023 ALD/RENIN RATIO 11.6 Normal 0.0-30.0 [facility] Performed By: #### L3400.1350, L3300.3500, L3300.1800, L3430.0100, L3300.1000, L3300.1050, L3100.4810 ####[facility] [address] [place], [address] ALDOSTERONE,S 45.0 ng/dL High 0.0-30.0 [facility] RENIN, PLASMA 3.873 ng/mL/hr Normal 0.167-5.380 [facility] BUN/CRE 18.1 RATIO Normal 10-20 [facility] CA,Total 9.0 mg/dL Normal 8.5-10.1 [facility] Chloride [Moles/Vol] 110 mmol/L High 98-107 [facility] CO2 [Moles/Vol] 25.0 mmol/L Normal 21.0-32.0 [facility] Creatinine [Mass/Vol] 0.66 mg/dL Normal 0.55-1.02 [facility] Performed By: #### L100.0100, L500.4050, L506.1000, L501.18662, L501.9520, L506.0400, L501.9060 ####[facility] [address] [place], [address] EST GFR - AA 138 mL/min Normal >60 [facility] Performed By: #### L100.0100, L500.4050, L506.1000, L501.13839, L501.9520, L506.0400, L501.9060 ####[facility] [address] [place], [address] GAP 3 Low 5-15 [facility] GFR/1.73 sq M.predicted among non-blacks MDRD (S/P/Bld) [Vol rate/Area] 114 mL/min/(1.73_m2) Normal>60 [facility] Globulin (S) [Mass/Vol] 3.8 g/dL Normal 2.2-4.2 [facility] Glucose [Mass/Vol] 124 mg/dL High 74-106 [facility] Performed By: #### L100.0100, L500.4050, L506.1000, L501.64415, L501.9520, L506.0400, L501.9060 ####[facility] [address] [place], [address] Potassium [Moles/Vol] 4.0 mmol/L Normal 3.5-5.1 [facility] Sodium [Moles/Vol] 138 mmol/L Normal 136-145 [facility] T PROT 7.0 g/dL Normal 6.4-8.2 [facility] Urea nitrogen [Mass/Vol] 12 mg/dL Normal 7-18 [facility] Free T3 on 07-05-2023 Free T3 [Mass/Vol] 2.4 pg/mL Normal 2.18-3.98 [facility] Comment on above: Performed By: #### L100.0100, L500.4050, L506.1000, L501.34562, L501.9520, L506.0400, L501.9060 ####[facility] [address] [place], [address] [place] on 07-05-2023 LI 0.80 mmol/L Normal 0.60-1.20 [facility] T4 Free Direct on 07-05-2023 T4 FREE DIRECT 1.04 ng/dL Normal 0.76-1.46 [facility] Comment on above: Performed By: #### L100.0100, L500.4050, L506.1000, L501.97286, L501.9520, L506.0400, L501.9060 ####[facility] [address] [place], [address] Thyroid Stim Hormone (TSH) on 07-05-2023 TSH 2.10 uIU/mL Normal 0.358-3.74 [facility] Vitamin D,25 Hydroxy on 07-05-2023 Vitamin D 25-OH 30.3 ng/mL Normal [facility] ASSESSMENT AND PLAN Patient has autism and Irregular cycles/amenorrhea: Check for total, bioavailable and free testosterone, SHBG, DHEA, androstenedione, prolactin, TSH, free T4, estrogen, FSH, LH Due to dizziness/lightheadedness, will check for cortisol and ACTH once again. These labs checked in 06/2023 at [facility] were normal, but her GI [...] 24 hr urine free cortisol checked at [facility], along with 24 hr urine [...] discussed in detail again - Advised on nursing home risks of PCOS including increased risk for endometrial cancer, diabetes, CAD, hyperlipidemia Medical Decision Making: Problems: Moderate: New problem with uncertain prognosis Data: Unique test result(s) reviewed: 3+ Unique test(s) ordered: 3+ Independent interpretation of test from other physician/QHCP Medical Decision Making Level: 4 - Moderate The patient should follow-up in 2 months. Jey Johnson MD Endocrinology Associate Staff [facility] Endocrinology and Metabolism [place] [phone] documented in this encounterOur Lady Of [facility]07-25-2024 History of Present illness Narrative* Lincoln Balderas [...] resolved. Lincoln Balderas MD documented in this encounterOur Lady Of [facility]cy [facility]03-19-2024 History of Present illness Narrative* Louis Schmidt APRN.[employer] - 05/08/2023 2:29 PM EDT Patient came [...] okay with this plan. documented in this encounterOur Lady Of [facility]cy [facility]02-17-2024 Discharge summary Author Ozzy Bright [facility] April 08, 2023 6:39am Note Date/Time April 07, 2023 4:27pm [facility] Medical Records Department [address] [place] [address] Emergency Department Summary 04/07/23 MR#: [id number] Acct: [id number] Name: MARION GUTIERREZ Rep #:[id number] : [...] to the oncoming physician pending psychiatric placement. 02/18/24 0639<Electronically signed by Ozzy Bright DO> Cosigner [...] substance use, visual/tactile hallucinations, and homicidal thoughts. [facility] <EDELMIRA White - Last Filed: 04/07/23 20:30> [facility] Medical History Anxiety Arthritis Autism Back [...] % (Auto) 66.2 Lymph % (Auto) 24.6 Grundy % (Auto) 7.3 Eos % (Auto) 1.0 [...] Kamara, DO - Last Filed: 04/07/23 21:29> [facility] Lab Data Labs: Laboratory Results - last 24 hr 04/07/23 04/07/23 16:55 18:10 WBC 9.3 RBC 4.67 Hgb 12.7 Hct 40.4 MCV 86.5 MCH 27.2 MCHC 31.4 L RDW Std Deviation 43.9 RDW Coeff of Delmy 13.9 Plt Count 340 MPV 9.0 Immature Gran % (Auto) 0.400 Neut % (Auto) 66.2 Lymph % (Auto) 24.6 Grundy % (Auto) 7.3 Eos % (Auto) 1.0 [...] management plan. This note was generated with [employer] dictation software. It may contain incorrectwords, spelling, [...] Silva NP Referrals: Naina Da Silva NP, [employer]-C [Primary Care Provider] - What to do if you have Problems For any increased pain, shortness of breath, bleeding, nausea or vomiting, chestpain, or any unexpected problems, contact your Primary Care Provider. Call [facility] ([phone]) or report to the closest Emergency Room. Call 911 if necessary. 04/07/232029 <Electronically signed by Lianet HICKEY> Cosigner Signature (if applicable): 04/07/232128 <Electronically signed by Bridger Kamara DO> CC: HORTENSIA Da Silva ~ Signed [facility] Work Phone: 1(271) 753-277012-11-2023 Discharge summary Author Domitila Carr [facility] January 29, 2023 2:25pm Note Date/Time January 29, 2023 2:25pm [facility] [place] [address] / REHABILITATION SERVICES DISCHARGE SUMMARY MR#: [id number] Acct: [id number] Name: MARION GUTIERREZ Rep #: [id number] : 1995 27 From: Domitila Carr MP T Referring Dr.: Dr. Laura Li MD Status: REG RCR Insurance: [facility] SELF PAY INSURANCE Discharge Summary D/C summary: [...] please feel free to call me at [phone]. Thank you for the referral of thispatient. Sincerely, Domitila Carr, WALLY Balance/Gait/Functional tests Balance/Special Test Scores Lower Extremity Functional Score: 75 Improvement % Improvement: 100 <Electronically signed by Domitila Carr MPT> 01/29/23 1426 CC: [employer] WAREHOUSE AGENTJovanna Da Silva; Dr. Laura Li MD ~ Signed [facility] Work Phone: 1(947) 356-117211-01-2023 Discharge summary Author Laura Li [facility] December 20, 2022 11:29am Note Date/Time December 20, 2022 1 1:28am [facility] Medical Records Department [address] [place] [address] Discharge Summary 12/20/22 1127 MR#: [id number] Acct: [id number] Name: MARION GUTIERREZ Rep #:[id number] : 1995 27 From: Laura Li MD PCP: [facility] atus:ADM IN [facility] Prov[facility] Date of Admission: 12/19/22 Date of Discharge: 12/20/22 Primary Care Physician: [facility] Reason For Visit: SYNCOPE Diagnosis Discharge [...] % (Auto) 55.7, Lymph % (Auto) 34.0, Grundy% (Auto) 7.5, Eos % (Auto) 2.0, Baso [...] Attending Provider: Laura Li Primary Care Provider: [facility] Providers: [place] Wisdom Discharge Orders/Prescriptions Prescriptions: [...] PO DAILY Referrals / Follow Up: [facility] [Primary Care Provider] - Within 1 Week Disposition Disposition (needs filled in before D/C Order can be placed): Home, Self Care Charges/Coding Visit Charges Inpatient E&M: 04820 Disch Hosp >30min 12/20/22 1129 <Electronically signed by Laura Li MD> Cosigner Signature (if applicable): CC: Dr. Laura Li MD; [facility]~ Signed [facility] Work Phone: 1(658) 285-211511-01-2023 Progress note Author Laura Li [facility] December 20, 2022 11:27am Note Date/Time December 20, 2022 8 :26am [facility] Medical Records Department [address] [place] [address] Progress Note - Hospitalist 12/20/22 0826 MR#: [id number] Acct: [id number] Name: MARION GUTIERREZ Rep #:[id number] : 1995 27 From: Laura Li MD PCP: [facility] St atus:ADM IN Location: [facility] [id number] Reason for Visit Reason for Visit: [...] % (Auto) 55.7, Lymph % (Auto) 34.0, Grundy% (Auto) 7.5, Eos % (Auto) 2.0, Baso [...] limited. Ordering Physician: [place] Wisdom Referring Physician: [facility] Performed By: Kaur Kinsey RDCS, RVT Physical [...] 40 Minutes Charges/Coding Visit Charges Inpatient E&M: 10766 Subs Hosp L2 12/20/22 1127 <Electronically signed by Laura Li MD> Cosigner Signature (if applicable): CC: ~ Signed [facility] Work Phone: 1(927) 961-492610-31-2023 Progress note Author [facility] December 19, 2022 2:11pm Note Date/Time December 19, 2022 1 1:20am [facility] Medical Records Department [address] [place] [address] Progress Note - Hospitalist 12/19/22 1120 MR#: [id number] Acct: [id number] Name: MARION GUTIERREZ Rep #:[id number] : 1995 27 From: Laura Li MD [facility] atus:ADM [place] Location: [place] [address] Reason for Visit Reason for Visit: Diagnoses [...] 73.9 H, Lymph % (Auto) 18.1 L, Grundy % (Auto) 6.4, Eos % (Auto) 0.7, [...] Troponin I High Sens 3 12/18/22 16:43: [place] 0.60 Radiography Diagnostic Testing: Radiology Impression Brain [...] limited. Ordering Physician: [place] Wisdom Referring Physician: [facility] Performed By: Kaur Kinsey, CISCO, RVT Physical [...] 40 Minutes Charges/Coding Visit Charges Inpatient E&M: 04517 Subs Hosp L2 12/19/22 1411 <Electronically signed by Laura Li MD> Cosigner Signature (if applicable): CC: ~ Signed [facility] Work Phone: 1(619) 956-963010-30-2023 History and physical note Author Montana Wisdom [facility] December 18, 2022 8:01pm Note Date/Time December 18, 2022 7 :56pm [facility] Medical Records Department [address] [place] [address] H&P Exam - Hospitalist 12/18/221945 MR#: [id number] Acct: [id number] Name: MARION GUTIERREZ Rep #:[id number] : 1995 From: Montana Wisdom DO PCP: [facility] atus:ADM GARRET Location: [address] HPI - General General Date of Admission: 12/18/22 Date of Service: 12/18/22 Chief Complaint: Lightheadedness, syncope HPI Narrative MARION GUTIERREZ, is a 27 F who presents to the emergency room at [facility] with complaints of multiple episodes of [...] I talked to her primary caregiver at [facility] today, she was placed on medication for polycystic ovarian syndrome but her blood sugar went too low and they had to take her off medication. Her serum insulin level was also low according to her primary caregiver at [facility]. The emergency room physician's tv production assistant told me today that the patient's [...] good narrative as to what is happening. [facility] Medical History (Updated 12/18/22 @ 19:31 [...] 73.9 H, Lymph % (Auto) 18.1 L, Grundy % (Auto) 6.4, Eos % (Auto) 0.7, [...] Troponin I High Sens 3 12/18/22 16:43: [place] 0.[address] 12/18/22 14:38 [...] 40 minutes Charges/Coding Visit Charges Inpatient E&M: 34192 Init Hosp L1 12/18/222000 <Electronically signed by Montana Wisdom DO> Cosigner Signature (if applicable): CC: Dr. Montana Wisdom, ; [facility]~ Signed [facility] Work Phone: 1(163) 962-388710-30-2023 Discharge summary Author Sarah Purdy [facility] December 18, 2022 6:00pm Note Date/Time December 18, 2022 2 :38pm [facility] Medical Records Department [address] [place] [address] Emergency Department Summary 12/18/22 MR#: [id number] Acct: [id number] Name: MARION GUTIERREZ Rep #:[id number] : 1995 27 From: Roxy BAZAN [facility] atus:ADM GARRET Location: [facility] [id number] <Statement entered by Sarah Purdy MD - [...] a headache. She is here with a industrial analyst who has seen her have some dizzy [...] clots in the legs or lungs. [facility] Medical History Anxiety Arthritis Autism Back [...] 73.9 H Lymph % (Auto) 18.1 L Grundy % (Auto) 6.4 Eos % (Auto) 0.7 [...] Normal sinus rhythm, rate of 89 bpm, MT 164 ms, QRS duration 80 ms, no [...] Triage Chief Complaint: Syncope ED Midlevel Provider: Roxy Ibarra ED Provider: Sarah Purdy Dx/Rx/DC Orders [...] MOUTH TWICE A DAY Primary Care Provider: [facility] Daniel Betancur Referrals: [place] [Primary Care Provider] - Disposition Disposition: Acute Care Hospital [facility] What to do if you have Problems For any increased pain, shortness of breath, bleeding, nausea or vomiting, chestpain, or any unexpected problems, contact your Primary Care Provider. Call [facility] ([phone]) or report to the closest Emergency Room. Call 911 if necessary. 12/18/22 1649 <Electronically signed by Roxy BAZAN> Cosigner Signature (if applicable): 12/18/22 1800 <Electronically signed by Sarah Purdy MD> CC: [facility] ~ Signed [facility] Work Phone: 1(665) 697-318110-21-2023 Discharge summary Author Rodolfo Das [facility] December 09, 2022 9:52pm Note Date/Time December 09, 2022 8 :06pm [facility] Medical Records Department [address] [place] [address] Emergency Department Summary 12/09/22 MR#: [id number] Acct: [id number] Name: MARION GUTIERREZ Rep #:[id number] : 1995 27 From: Rodolfo Das MD PCP: [facility] St atus:REG ER Location: ED HPI History [...] she complained of headaches as well. [facility] Medical History Anxiety Arthritis Autism Back [...] (Auto) 71.2 H Lymph % (Auto) 20.4 Grundy % (Auto) 6.9 Eos % (Auto) 0.7 [...] Sl. Cloudy Urine pH 6.0 Ur Specific [place] 1.025 Urine Protein 30 H Urine Glucose [...] MOUTH TWICE A DAY Primary Care Provider: [place] Referrals: [place] [Primary Care Provider] - 3-5 Days if not improving Activity Restrictions/Additional Instructions: Continue your Reglan as needed. Small amounts of water to keep yourself hydrated. Disposition Disposition: Home, Self Care What to do if you have Problems For any increased pain, shortness of breath, bleeding, nausea or vomiting, chestpain, or any unexpected problems, contact your Primary Care Provider. Call [facility] ([phone]) or report to the closest Emergency Room. Call 911 if necessary. 12/09/222151 <Electronically signed by Rodolfo Das MD> Cosigner Signature (if applicable): CC: [facility] ~ Signed [facility] Work Phone: 1(867) 423-379508-15-2023 NotePap Smear Specimen AdequacyAugust 2022 10:31amComment.Satisfactory for evaluation. No endocervical component is identified.[facility] A#[id number] Memorial HospitalComment on above:Satisfactory for evaluation. No endocervical component is identified. 10-03-2022 NotePap Smear Specimen AdequacyAugust 2022 10:31amComment. Satisfactory for evaluation. No endocervical component is identified.[facility] A#[id number] Clinic South Pointe HospitalComment on above:Satisfactory for evaluation. No endocervical component is identified.10-03-2022 NotePap Smear Specimen AdequacyAugust 2022 10:31amComment.Satisfactory for evaluation. No endocervical component is identified.[facility] A#[id number] Clinic South Pointe HospitalComment on above:Satisfactory for evaluation. No endocervical component is identified.10-03-2022 NotePap Smear Specimen AdequacyAugust 2022 10:31amComment.Satisfactory for evaluation. No endocervical component is identified.[facility] A#[id number] Clinic South Pointe HospitalComment on above:Satisfactory for evaluation. No endocervical component is identified. 10-03-2022 NotePap Smear Specimen AdequacyAugust 2022 10:31amComment. Satisfactory for evaluation. No endocervical component is identified.[facility] A#[id number] Clinic South Pointe HospitalComveterans affairs medical center on above:Satisfactory for evaluation. No endocervical component is identified.10-03-2022 NotePap Smear Specimen AdequacyAugust 2022 10:31amComment.Satisfactory for evaluation. No endocervical component is identified.[facility] A#[id number] Clinic South Pointe HospitalComveterans affairs medical center on above:Satisfactory for evaluation. No endocervical component is identified.08-15-[address] Etienne [facility] August 15, 2022 10:11pm Note Date/Time August 15, 2022 8:19 pm [facility] Medical Records Department [address] [place] [address] Emergency Department Summary 08/15/22 MR#: [id number] Acct: [id number] Name: DOCGERDAMARION CHAPARRON Rep #:[id number] : 1995 26 From: David Etienne DO PCP: [facility] St atus:REG ER Location: ED HPI HPI [...] urinary complaints. No fevers or chills. PFSH [facility] Medical History Anxiety Arthritis Autism Back [...] unremarkable. Urinalysis negative for infection. hCG negative. [place] level is normal. Patient feeling better on [...] % (Auto) 59.6 Lymph % (Auto) 28.3 Grundy % (Auto) 9.2 Eos % (Auto) 1.8 [...] Sl. Cloudy Urine pH 6.0 Ur Specific [place] 1.020 Urine Protein 15 H Urine Glucose (UA) Normal Urine Ketones Negative Urine Occult Blood Negative Urine Nitrite Negative Urine Bilirubin Negative Urine Urobilinogen Normal Ur Leukocyte Esterase 25 H Urine RBC 0 SEEN Urine WBC 0-5 SEEN Ur Squamous Epith Cells 0-5 SEEN Urine Bacteria 1+ Urine Mucus 0 SEEN [place] 08/15/22 08/15/22 19:57 19:57 WBC RBC Hgb Hct MCV MCH MCHC RDW Std Deviation RDW Coeff of Delmy Plt Count MPV Immature Gran % (Auto) Neut % (Auto) Lymph % (Auto) Grundy % (Auto) Eos % (Auto) Baso % [...] Color Urine Clarity Urine pH Ur Specific [place] Urine Protein Urine Glucose (UA) Urine Ketones Urine Occult Blood Urine Nitrite Urine Bilirubin Urine Urobilinogen Ur Leukocyte Esterase Urine RBC Urine WBC Ur Squamous Epith Cells Urine Bacteria Urine Mucus [place] 0.60 Discharge Plan Triage Chief Complaint: Abd [...] pain) Qty: 60 1RF Primary Care Provider: [place] Referrals: [place],Andreas Kelsy [Primary Care Provider] - Disposition Disposition: Home, Self Care What to do if you have Problems For any increased pain, shortness of breath, bleeding, nausea or vomiting, chestpain, or any unexpected problems, contact your Primary Care Provider. Call [facility] ([phone]) or report to the closest Emergency Room. Call 911 if necessary. 08/15/222210 <Electronically signed by David Etienne DO> Cosigner Signature (if applicable): CC: [facility] ~ Signed [facility] Work Phone: 1(351) 592-572306-20-2023 Procedure [facility] 08-08-2022 [facility]06-20-2023 Procedure note [facility]06-20-2023 Procedure [facility] 12-12-2021 History of Present illness Narrative* [...] dentist. Lincoln Balderas MD [facility] History of Present illness Narrative* Lincoln Balderas MD - 09/03/2021 10:42 AM EDT [facility] Triage Note: Patient presents to [facility] care with complaint of nausea, vomiting, and dizziness. She has been unable to eat for the last 5 days and has been unable to drink since yesterday. Patient is alert, flat affect, sitting in a wheelchair, and accompanied by her mother. ER treatment recommended for dehydration. documented in this encounterOur [facility] Hospital Discharge instructions Patient Education 12/14/2020 20:33:17 [...] the uterine lining, diabetes, and heart disease. 2901-3758 [employer]. [address] [place] [address], [place] [address]. All rights reserved. This information is not [...] month. The bleeding may be heavier or gas reverser than normal. If you have heavy bleeding [...] or shortness of breath Dizziness or fainting 8349-4926 [employer]. [address] [place] [address]. All rights reserved. This information is not intended as a substitute for professional medical care. Always follow yourhealthcare professional's instructions. Follow Up Care 12/14/2020 18:23:00 With:ZEUS MILLER [facility] Address: [address] [place] [address]- When:1-2 days [facility] 11-18-2020 History of Present illness Narrative* Therese Hawk (Tech), Tech - 01/07/2020 9:00 AM EST Radiology Service [...] 07, 2020 9:03 AM documented in [facility] encounterPro[facility] note Author Moe Marie [facility] Note Date/Time October 27, 2024 10:43am [facility] Medical Records Department [address] [place] [address] Pre-Anesthesia Evaluation 10/27/24 1043 MR#: [id number] Acct: [id number] Name: MARION GUTIERREZ Rep #:[id number] : 1995 29 From: Moe Masterson PCP: Karuna Lim [facility] TOBACCO WAREHOUSE AGENT-C Status:REG [facility] Race: C Location: [place] [address] ASA Classification* ASA Classification ASA Classification: 3 Assessment & Plan Anesthesia* Anesthesia Assessment Anesthesia Assessment: Discussed sedation and/or anesthesia options, risks, benefits, and alternatives with patient/parents/legal guardian/POA. Questions invited. The patient/parents/legal guardian/POA seems to understand and agrees to proceedwith anesthesia plan. Reviewed the physical assessment, medical history, allergy history and patient home medications list prior to surgery/procedure/anesthetic and documented any changes. Performed airway and anesthesia risk assessments. Anesthesia Type Anesthesia Type: MAC History Source History Obtained from:: Patient and Chart Anesthesia Focused Assessment* Temperature: 98 F Pulse Rate: 88 Blood Pressure: 147/98 Respiratory Rate: 16 Pulse Ox: 100 Oxygen Delivery Method: Room Air Airway Assessment Mouth opens: >3 cm Mallampati Score: II Teeth Condition: Chipped/Broken Neck Range of motion (ROM): Full ROM Labs Anesthesia Preop lab: CBC WBC 8.2 K/mm3 (4.4-11.0) 10/24/24 15:16 10/24/24 RBC 4.58 M/mm3 (4.2-5.4) 10/24/24 15:16 10/24/24 Hgb 12.6 g/dL (12.0-15.0) 10/24/24 15:16 10/24/24 Hct 38.0 % (37-47) 10/24/24 15:16 10/24/24 Plt Count 367 K/mm3 (150-450) 10/24/24 15:16 10/24/24 CHEMISTRY Potassium 3.6 mmol/L (3.3-5.1) 10/24/24 15:16 10/24/24 Sodium 141 mmol/L (133-145) 10/24/24 15:16 10/24/24 Magnesium 2.1 mg/dL (1.5-2.2) 09/04/24 21:26 09/04/24 Phosphorus 3.3 mg/dL (2.5-4.9) 11/30/21 07:50 11/30/21 BUN 10 mg/dL (4-19) 10/24/24 15:16 10/24/24 Creatinine 0.68 mg/dL (0.70-1.20) L 10/24/24 15:16 Glucose 83 mg/dL (70-99) 10/24/24 15:16 10/24/24 POC Glucose 90 mg/dL (74-106) 10/24/23 11:13 10/24/23 TSH 2.310 uIU/mL (0.300-4.200) 05/23/24 08:30 04/06/13 COAG PT 13.7 SECONDS (11.7-14.9) 02/15/22 11:18 Urine Test Negative Negative 10/27/24 09:56 10/27/24 Pre-Assessment Diagnosis/Proposed Procedure Planned Operative Procedure(s): CSCOPE Anesthesia History Anesthesia History - home health manager: Anesthesia History - home health manager Hx Hospitalization No 10/24/24 10:50 Any Problems With Anesthesia Yes: N,V 10/24/24 10:50 Cholinesterase deficiency No 10/24/24 10:50 You/Your Family Experience No 10/24/24 10:50 fever (hyperthermia) with Relationship Recent Exposure to Contagious No 10/27/24 10:07 Disease Does patient have nerve No 10/24/24 10:50 stimulator Patient instructed to have device shut off --Does patient have Pacemaker No 10/27/24 10:07 or ICD? When Was Last Pacemaker Check QUESTION #4 FULL TEXT: You/Your Family Experience fever (hyperthermia) with Anesthesia Last Oral Intake Last Oral intake: Last Oral Intake NPO since 06:40 10/27/24 10:07 Meds taken in AM with sips of No 10/27/24 10:07 water? Meds patient instructed to take am of surgery PONV PONV - home health manager: PONV - home health manager Female Yes 10/24/24 10:50 HX of Motion Sickness Yes 10/24/24 10:50 HX of N/V After Surgery Yes 10/24/24 10:50 Non-Smoker Yes 10/24/24 10:50 Duration of Surgery greater No 10/24/24 10:50 than 60 minutes Number of Risk Factors 4 10/24/24 10:50 PONV Score Severe Risk 10/24/24 10:50 Height & Weight Height & Weight: Anesthesia: Height & Weight Height 5 ft 6 in 10/27/24 10:07 Weight: 130 kg 10/27/24 10:07 Body Mass Index (BMI) 46.2 10/27/24 10:07 Respiratory Assessment Respiratory Assessment - home health manager: Respiratory Tract Infection Hx - home health manager Hx Respiratory Tract Infection No 10/24/24 10:50 STOP Sleep Apnea STOP Sleep Apnea - home health manager: STOP Sleep Apnea - home health manager Hx Hypertension Yes: CONTROLLED WITH MED 10/24/24 10:50 Hx Sleep Apnea No 10/24/24 10:50 CPAP BIPAP Do you snore loudly (louder No 10/24/24 10:50 than talking or can be heard Do you often feel tired/ No 10/24/24 10:50 fatigued/ sleepy during daytime? Has anyone observed you stop No 10/24/24 10:50 breathing during sleep? STOP Results Negative 10/24/24 10:50 QUESTION #5 FULL TEXT : Do you snore loudly (louder than talking or can be heard through closed doors)? 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 Specify any problems Hx of Preganancy in last 3 No 10/24/24 10:50 Months Nurse Filling Out Transfusion DSCHRIBER 10/24/24 10:50 & Questions: Date: 10/24/24 10/24/24 10:50 Time: 10:52 10/24/24 10:50 Patient unable to answer at this time (ie. confused, unrespo /Reproduction History /Reproductive History - home health manager: /Reproductive Hx- home health manager Hx Now No 10/24/24 10:50 Gestational Age (in weeks): EDC: Hx Hx Para Hx Section SAB No 10/24/24 10:50 Active Medications Active Medications: Current Medications Generic Name Dose Route Start Last Admin Trade Name Freq PRN Reason Stop Dose Admin Lactated Ringer's 1,000 mls @ 15 mls/hr 10/27/24 10:00 IV .Q48H TORIN PFSH Medical History Dietary restriction Shortness of breath on exertion History of pain when walking Alcohol use Picking own skin Low iron Fatty liver Gastroparesis Cardiology follow-up encounter Obesity Depression Diabetes GERD (gastroesophageal reflux disease) Irregular heart beat Cellulitis History of echocardiogram Wears glasses Bipolar disorder Anxiety Arthritis Back pain Migraine headache Syncope Non-smoker Bipolar 1 disorder PCOS (polycystic ovarian syndrome) IBS (irritable bowel syndrome) Autism Home Medications ?Medication ?Instructions ?Recorded ?Last Taken ?Type lithium carbonate 300 mg capsule 300 mg PO DAILY Bipol ar 04/05/17 09/27/24 History ferrous sulfate 325 mg (65 mg 325 mg PO QODAY suppleme nt 01/24/22 10/24/24 History iron) tablet (FeroSul) lithium carbonate 600 mg capsule 600 mg PO QHS mental health 01/24/22 09/26/24 History aripiprazole lauroxil 441 mg/1.6 441 mg IM .Q28 DAYS m [facility] 12/18/22 09/24/24 History mL suspension, ext.rel. IM syringe ([place]) cholecalciferol (vitamin D3) 25 25 mcg PO DAILY vitami n 12/18/22 09/26/24 History mcg (1,000 unit) tablet (Vitamin D3) imipramine HCl 25 mg tablet 25 mg PO DAILY mental [facility] 12/18/22 09/26/24 History pantoprazole 40 mg tablet,delayed 40 mg PO QHS 4 09/26/24 History release simvastatin 20 mg tablet 20 mg PO QHS 06/03/23 History lactulose 10 gram/15 mL oral 30 g (45 mL) PO BID PRN 0 09/28/23 10/21/23 Rx solution constipation #473 mL hyoscyamine sulfate 0.125 mg tablet 0.125 mg PO BID-QI D PRN dyspepsia 10/10/23 10/21/23 Rx #30 tabs diphenoxylate-atropine 2.5 1 tab PO BID PRN diarrhea # 30 tabs 10/29/23 Unknown Rx mg-0.025 mg tablet (Lomotil) dicyclomine 20 mg tablet 20 mg PO TID PRN abdominal p ain 05/08/24 09/23/24 Rx #30 tabs metoclopramide HCl 10 mg tablet 10 mg PO Q6H PRN nause a and 05/08/24 09/26/24 Rx (Reglan) vomiting #20 tabs miscellaneous medical supply #1 ea 05/29/24 Unknown Rx metoprolol tartrate 50 mg tablet 100 mg (2 x 50 mg) PO BID #180 tabs 07/21/24 09/27/24 10:00 Rx amlodipine 2.5 mg tablet 2.5 mg PO BID 09/04/2409/27 10:00 History atogepant 60 mg tablet (Qulipta) 60 mg PO DAILY 09/27/24 History cyanocobalamin (vitamin B-12) 1,000 mcg sublingual YI LY 09/04/24 09/26/24 History 1,000 mcg sublingual tablet norgestimate 0.25 mg-ethinyl 1 tab PO DAILY 09/04/24 U nknown History estradiol 0.035 mg tablet (Grundy-Linyah) rizatriptan 10 mg tablet 10 mg PO Q2H PRN migraine he adache 09/04/24 Unknown History diphenoxylate-atropine 2.5 1 tab PO TID #90 tabs 09/2509/27/24 10:00 Rx mg-0.025 mg tablet polyethylene glycol 3350 17 4 g PO ONCE constipation # 238 grams 10/14/24 Unknown Rx gram/dose oral powder (Miralax) Allergy/AdvReac Type Severity Reaction Status Date / Time ondansetron (From Zofran (as Allergy Anaphylaxis Verified 10/27/24 10:06 hydrochloride)) pollen extracts Allergy Hives Verified 10/27/24 10:06 metformin AdvReac Mild Nausea/Vom/ Verified 10/27/24 10:06 Diarrhea escitalopram (From Lexapro) AdvReac Other Verified 10/27/24 10:06 lactase (From Dairy Aid) AdvReac Upset Verified 10/27/24 10:06 Stomach Family History Mother Uterine cancer Other Asthma [...] at home: Yes additional social history: single Review of Systems (Anesthesia) ROS Narrative System reviewed and no additional complaints, except as documented. 10/27/24 1043 <Electronically signed by Moe Marie MD> Date _ Moe Marie MD Cosigner Signature: Date CC: ~ Signed [facility] Work Phone: Consult note Author Collin Lin [facility] Note Date/Time October 27, 2024 11:15am [facility] Medical Records Department [address] [place] [address] Anesthesia Postop Eval I 10/27/24 1114 MR#: [id number] Acct: [id number] Name: MARION GUTIERREZ Rep #:[id number] : 1995 29 From: Collin Lin PCP: Karuna Lim Kimi TOBAC[employer] WAREHOUSE AGENT-C Status:REG [facility] Race: C Location: [place] [address] Anesthesia: Postop Eval I Current Vital Signs Temperature: 99 F Pulse Rate: 74 Blood Pressure: 133/87 Respiratory Rate: 20 Pulse Ox: 100 Oxygen Delivery Method: Room Air Assessment Airway patent: Yes Spontaneous unlabored respirations: Yes Mental status: Asleep nausea: No Vomiting: No Anesthesia Complication: No Fluid Hydration Crystalloid volume administer (ml): 500 Total IV fluid infused: 500 Progress Note Anesthesia document: Postop Eval 1 completed: Yes 10/27/24 1115 <Electronically signed by Collin Lin > Date _ Collin Aguilar Signature: Date CC: ~ Signed [facility] Work Phone: Discharge summary Author Ozzy Bright [facility] November 23, 2022 12:33am Note Date/Time November 23, 2022 12 :05am [facility] Medical Records Department [address] [place] [address] Emergency Department Summary 11/23/22 MR#: [id number] Acct: [id number] Name: MARION GUTIERREZ Rep #:[id number] : 1995 27 From: Ozzy Angel PCP: [facility] St atus:REG ER Location: ED HPI History [...] when her blood sugar was low. [facility] Medical History Anxiety Arthritis Autism Back pain Bipolar 1 disorder Bipolar disorder Depression with anxiety Dietary restriction Fatty liver Heartburn History of echocardiogram IBS (irritable bowel syndrome) Migraine headache Migraines Non-smoker PCOS (polycystic ovarian syndrome) Syncope Wears glasses Home Medications lithium carbonate 300 mg capsule 300 mg PO DAILY 02/15/18 [History Last Taken Unknown] ferrous sulfate 325 [...] MOUTH TWICE A DAY Primary Care Provider: [place] Referrals: [place],Andreas Kelsy [Primary Care Provider] - 3-5 Days Activity Restrictions/Additional Instructions: Call your primary care physician tomorrow for further instructions on your Victoza. Disposition Disposition: Home, Self Care What to do if you have Problems For any increased pain, shortness of breath, bleeding, nausea or vomiting, chestpain, or any unexpected problems, contact your Primary Care Provider. Call [facility] ([phone]) or report to the closest Emergency Room. Call 911 if necessary. 11/23/22 0033 <Electronically signed by Ozzy Bright DO> Cosigner Signature (if applicable): CC: [facility] ~ Signed [facility] Work Phone: Discharge summary Author Stan Lin [facility] Note Date/Time May 15, 2024 12: 13am [facility] Medical Records Department [address] [place] [address] Emergency Department Summary 05/15/24 MR#: [id number] Acct: [id number] Name: MARION GUTIERREZ Rep #:[id number] : 1995 28 From: Stan Lin DO PCP: REED Sotomayor, TOBACCO WAREHOUSE AGENT-C Statu s:REG ER Location: ED HPI History [...] evaluation management. Patient denies any sick contacts PFS PFSH Medical History Alcohol use Picking own skin [...] lauroxil 441 mg/1.6 441 mg IM .COMPLEX [facility] 12/18/22 10/23/23 History mL suspension, ext.rel. IM syringe ([place]ristada) cholecalciferol (vitamin D3) 25 25 mcg PO DAILY vitami n 12/18/22 10/22/23 History mcg (1,000 unit) tablet (Vitamin D3) imipramine HCl 25 mg tablet 25 mg PO DAILY mental [facility] 12/18/22 10/22/23 History mecobalamin (vitamin B12) 1,000 [...] following commands and that she was at [facility] year is 2024. NIH of 0 [...] % (Auto) 58.9 Lymph % (Auto) 31.2 Grundy % (Auto) 9.0 Eos % (Auto) 0.4 [...] 21:00 IMPRESSION: No Acute Findings. Reading Location: [facility] Discharge Plan Triage Chief Complaint: Chest [...] Naina Da Silva Referrals: Naina Da Silva, TOBACCO WAREHOUSE AGENT-C [Primary Care Provider] - Activity Restrictions/Additional Instructions: Follow with your primary care physician outpatient setting. Return with worsening symptoms or concerns. Chest x-ray is normal and your blood work was normal. Use your Reglan that you have at home for nausea and vomiting. Print Language: Citizen [place] Disposition Disposition: Home, Self Care What to do if you have Problems For any increased pain, shortness of breath, bleeding, nausea or vomiting, chestpain, or any unexpected problems, contact your Primary Care Provider. Call [facility] ([phone]) or report to the closest Emergency Room. Call 911 if necessary. 05/15/24 0013 <Electronically signed by Stan Lin DO> Cosigner Signature (if applicable): CC: REED TOBACCO WAREHOUSE AGENT-C Naina Da Silva ~ Signed [facility] Work Phone: Discharge summary Author Jaylon Galicia [facility] Note Date/Time June 03, 2024 1:0 3pm [facility] Medical Records Department [address] [place] [address] Emergency Department Summary 06/03/24 MR#: [id number] Acct: [id number] Name: MARION GUTIERREZ Rep #:[id number] : 1995 28 From: Jaylon Galicia MD PCP: Karuna Lim TOBAC[employer] WAREHOUSE AGENT-C Status:REG ER Location: ED HPI History of Present Illness Chief Complaint: Neuro S/Sx Informant: patient and parent Narrative Narrative: 28-year-old female presents saying she been having a migraine for 1 week wvpifzhhuui-mev-dmdtkqk medications that are not helping, she gets [...] had some jaw discomfort at times. [facility] Medical History Alcohol use Picking own [...] 441 mg/1.6 441 mg IM .COMPLEX [facility] 12/18/22 10/23/23 History mL suspension, ext.rel. 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 Additional description as above. Reading Location: [facility] Head/Neck CTA 06/03/24 08:57 IMPRESSION: 1. [...] 3. Additional description as above. Reading Location: [facility] Rhythm Strip Rhythm Strip: Sinus Rhythm [...] Care Provider: Karuna Lim Referrals: Karuna Lim, TOBACCO WAREHOUSE AGENT-C [Primary Care Provider] - As soon as possible Print Language: Citizen [place] Disposition Disposition: Home, Self Care What to do if you have Problems For any increased pain, shortness of breath, bleeding, nausea or vomiting, chestpain, or any unexpected problems, contact your Primary Care Provider. Call [facility] ([phone]) or report to the closest Emergency Room. Call 911 if necessary. 06/03/24 1303 <Electronically signed by Jaylon Galicia MD> Cosigner Signature (if applicable): CC: Karuna MCBRIDE TOBACCO WAREHOUSE AGENTIsrealC Carina ~ Signed [facility] Work Phone: Evaluation + Plan note No data available for this section [facility] Evaluation noteNo assessment information available [facility] Work Phone: Evaluation note* Diagnosis Onset Date Resolution Status Dysmenorrhea acute Hirsutism acute Oligomenorrhea acute Hypertension chronic Encounter for routine gynecological examination noneactive [facility] Work Phone: Evaluation note* Diagnosis Nausea and vomiting, unspecified vomiting type- Primary Dizziness Dizziness and giddiness documented in this encounter [facility] note* Diagnosis Onset Date Resolution Status Dysmenorrhea acute Hirsutism acute Oligomenorrhea acute Hypertension chronic Encounter for routine gynecological examination noneactive Dysmenorrhea acute Hirsutism acute Oligomenorrhea acute [facility] Work Phone: Evaluation note* Diagnosis Dental infection- Primary Acute apical periodontitis of pulpal origin [facility] Diagnosis Onset Date Resolution Status Dysmenorrhea acute Hirsutism acute Oligomenorrhea acute [facility] Work Phone: evaluation note* Diagnosis Onset Date Resolution Status Nausea vomiting and diarrhea chronic [facility] Work Phone: Evaluation note* Diagnosis Onset Date Resolution Status Nausea vomiting and diarrhea chronic Oligomenorrhea acute Vaginitis noneactive [facility] Work Phone: Evaluation note* Diagnosis Onset Date Resolution Status Gastroparesis chronic Nausea vomiting and diarrhea chronic [facility] Work Phone: Evaluation note* Diagnosis Onset Date Resolution Status Crohn's disease acute Gastroparesis chronic Nausea vomiting and diarrhea chronic Dysmenorrhea acute Hirsutism acute Oligomenorrhea acute Encounter for routine gynecological examination noneactive Hydradenitis noneactive [facility] Work Phone: Evaluation note* Diagnosis Onset Date Resolution Status Crohn's disease acute Gastroparesis chronic Nausea vomiting and diarrhea chronic Dysmenorrhea acute Hirsutism acute Oligomenorrhea acute Encounter for routine gynecological examination noneactive Hydradenitis noneactive Cellulitis acute Syncope acute [facility] Work Phone: Evaluation note* Diagnosis Onset Date Resolution Status Syncope resolved Crohn's disease chronic Fatty liver chronic Gastroparesis chronic Nausea vomiting and diarrhea chronic [facility] Work Phone: Evaluation note* Diagnosis Onset Date Resolution Status Syncope resolved Crohn's disease chronic Fatty liver chronic Gastroparesis chronic Nausea vomiting and diarrhea chronic Bipolar 1 disorder chronic Diabetes chronic Obesity chronic [facility] Work Phone: Evaluation note* Diagnosis Onset Date Resolution Status Crohn's disease chronic Fatty liver chronic Gastroparesis chronic Nausea vomiting and diarrhea chronic Bipolar 1 disorder chronic Diabetes chronic Obesity [facility] Work Phone: evaluation note* Diagnosis Dizziness- Primary Dizziness and giddiness Headache, unspecified headache type [facility] Diagnosis Onset Date Resolution Status Bipolar 1 disorder chronic Diabetes chronic Obesity [facility] Work Phone: Evaluation note* Diagnosis Impacted cerumen of left ear- Primary Impacted cerumen documented in this encounter [facility] note* Diagnosis PCOS (polycystic ovarian syndrome)- Primary Polycystic ovaries Obesity, Class III, BMI 40-49.9 (morbid obesity) (HCC) Morbid obesity documented in this encounter [facility] note* Diagnosis Pain- Primary Generalized pain documented in this encounter [facility] note* Diagnosis Foot pain, left Pain in limb Sprain of ligament of left ankle, initial encounter documented in this encounter [facility] note* Diagnosis Chronic migraine without aura, intractable, without status migrainosus (CMS/HCC) [facility] Diagnosis Morbid obesity with BMI of 45.0-49.9, adult (CMS/HCC)- Primary Chronic migraine without aura, intractable, without status migrainosus (CMS/HCC) [facility] Diagnosis PCOS (polycystic ovarian syndrome)- Primary Polycystic ovaries Obesity, Class III, BMI 40-49.9 (morbid obesity) (HCC) Morbid obesity documented in this encounter [facility] note* Diagnosis Sore throat- Primary Acute pharyngitis URI, acute Acute upper respiratory infections of unspecified site documented in this encounter [facility] note* Diagnosis Acute otitis media, left- Primary Unspecified otitis media Acute otitis externa of left ear, unspecified type documented in this encounter [facility] note* Diagnosis PCOS (polycystic ovarian syndrome)- Primary Polycystic ovaries Obesity, Class III, BMI 40-49.9 (morbid obesity) (HCC) Morbid obesity documented in this encounter [facility] note* Diagnosis Influenza-like illness- Primary Influenza with other respiratory manifestations documented in this encounter [facility] note* Diagnosis Obesity, Class III, BMI 40-49.9 (morbid obesity) (HCC)- Primary Morbid obesity PCOS (polycystic ovarian syndrome) Polycystic ovaries [facility]* Diagnosis Obesity, Class III, BMI 40-49.9 (morbid obesity) (HCC)- Primary Morbid obesity Type 2 diabetes mellitus with other specified complication, without long-term current use of insulin (HCC) Primary hypertension Unspecified essential hypertension Binge eating disorder, moderate Hypercholesterolemia Pure hypercholesterolemia Gastroparesis Steatosis of liver Other chronic nonalcoholic liver disease 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, requiring support (level 1) ([facility]) PCOS (polycystic ovarian syndrome) Polycystic ovaries Irritable bowel syndrome with diarrhea Irritable bowel syndrome Bipolar affective disorder, remission status unspecified ([facility]) Palpitations Hirsutism History of suicidal ideation Personal history of other mental disorder documented in this encounter [facility] note* Diagnosis Bipolar affective disorder, currently depressed, mild (HCC)- Primary Bipolar I disorder, most recent episode (or current) depressed, mild Obesity, Class III, BMI 40-49.9 (morbid obesity) ([facility]) Morbid obesity Binge eating disorder, moderate Generalized anxiety disorder documented in this encounter [facility] note* Diagnosis PCOS (polycystic ovarian syndrome) Polycystic ovaries Obesity, Class III, BMI 40-49.9 (morbid obesity) Morbid obesity documented in this encounter [facility]* Diagnosis PCOS (polycystic ovarian syndrome) [E28.2]- Primary Polycystic ovaries documented [facility]* Diagnosis Obesity, Class III, BMI 40-49.9 (morbid obesity) (HCC)- Primary Morbid obesity Binge eating disorder, moderate Bipolar affective disorder, currently depressed, mild (HCC) Bipolar I disorder, most recent episode (or current) depressed, mild Generalized anxiety disorder documented in this encounter [facility]* Diagnosis Obesity, Class III, BMI 40-49.9 (morbid obesity) (HCC) Morbid obesity Type 2 diabetes mellitus with other specified complication, without long-term current use of insulin ([facility]) Palpitations documented in this encounter [facility] note* Diagnosis PCOS (polycystic ovarian syndrome) Polycystic ovaries Obesity, Class III, BMI 40-49.9 (morbid obesity) (HCC) Morbid obesity documented in this encounter [facility]* Diagnosis PCOS (polycystic ovarian syndrome)- Primary Polycystic ovaries [facility] Diagnosis Binge eating disorder, moderate- Primary Bipolar affective disorder, currently depressed, mild (HCC) Bipolar I disorder, most recent episode (or current) depressed, mild Generalized anxiety disorder documented in this encounter [facility]* Diagnosis PCOS (polycystic ovarian syndrome)- Primary Polycystic ovaries Class 3 severe obesity without serious comorbidity with body mass index (BMI) of 45.0 to 49.9 in adult, unspecified obesity type (HCC) documented in this encounter [facility] Author Andreas Oliva [facility] August 08, 2022 2:27pm Note Date/Time August 08, 2022 2:27 pm [facility] Medical Records Department [address] [place] [address] History & Physical Exam 08/08/22 1426 MR#: [id number] Acct: [id number] Name: MARION GUTIERREZ Rep #:[id number] : 1995 26 From: Andreas Oliva DO PCP: [facility] St atus:[facility] Location: [place] [address] History and Physical Date of Admission: 08/08/22 MARION GUTIERREZ, is a 26 F who presents to the office today for PMH autism, bipolar type 1, PCOS [facility] ED on multiple occasions over [...] GERD. ?[facility] 12.12.17?without positive findings. EGD 11.15.18?advanced to small bowel noting bile in stomach and mild gastritis. No pathologic changes. US 5.?hepatic measurement 18cm with increased echogenicity. ?EGD 09.08.20?advanced to small bowel noting gastritis, mild. Remaining exam without acute/chronic finding. H.Pylori -. ?Colonoscopy 10.08.20?advanced to TI noting internal hemorrhoids without visual abnormality. Without pathologic changes. [facility] ED visits continue as noted above. US RUQ 11.26.20?abd pain hepatomegaly 19cm with fatty infiltration. US ABD 11.30.21?abd pain hepatomegaly 20.2cm with fatty infiltration; splenomegaly. No ascites. Biochemical workup ?T3, T4, CBC, CMP, TIBC, iron, ferritin, copper, zinc,selenium without pertinent abnormality. ? TSH H4.91 [facility] ED visit prompting referral 01.24.22 [...] TSH H4.77; T4WNL. *BGI established 02.15.22 following [facility] ED presentation. Marion has had [...] Exam Const General: cooperative Nutritional Appearance: obese [facility] Head: normal to inspection Ears: TM's normal bilaterally Nose: external nose normal Face and sinus: normal facial exam Mouth: oral mucosae normal Throat: posterior oropharynx normal Neck Lymphatic: no lymphadenopathy noted Resp Effort & Inspection: normal respiratory effort Auscultation: Bilateral: Clear to Auscultation Cardio Rate: regular rate Rhythm: regular rhythm Quality Reporting Tobacco Screening ([facility] 138) Smoking Status: Never smoker Assessment and [...] na usea and vomiting ? ? Discontinued tyzbqr-aqlihvlo-tgahwod 40,000-126,000- 168,000 unit (Zenpep) ?? take three capsules with meals ?? Discontinued Reason:? Order Completed 3 caps? PO TID 189 caps 0RF MARION GUTIERREZ, is a 26 F who presents to the office today for PMH autism, bipolar type 1, PCOS [facility] ED on multiple occasions over the years with N/V, headache, diarrhea, CP. Stool studies for infection have been performed throughout the years with calprotectin, C.Difficile, EP, O/P WNL each time. CT abd/pel 1..16?abd pain/diarrhea mild hepatomegaly, homogeneous; splenomegaly; multiple fluid-filled small bowel loops; diverticulosis. Stool 9.22.16?lactoferrin + US RUQ 2..16?abd pain hepatomegaly 18.7cm with fatty infiltration. HIDA 24.17?EF 88%. When compared to 04.06.15 scan there [...] hemorrhoids without visual abnormality. Without pathologic changes. [facility] ED visits continue as noted above. US RUQ 10..21?abd pain hepatomegaly 19cm with fatty infiltration. US ABD 11.30.21?abd pain hepatomegaly 20.2cm with fatty infiltration; splenomegaly. No ascites. Biochemical workup ?T3, T4, CBC, CMP, TIBC, iron, ferritin, copper, zinc,selenium without pertinent abnormality. ? TSH H4.91 [facility] ED visit prompting referral 01.24.22 [...] TSH H4.77; T4WNL. *BGI established 02.15.22 following [facility] ED presentation. Marion has had [...] to be calculated. Contact with results; flaquita Creon and regaydee OV 06.06.22 She continues to have difficulty [...] Rhythm: regular rhythm Quality Reporting Tobacco Screening ([facility] 138) Smoking Status: Never smoker Assessment and [...] na usea and vomiting ? ? Discontinued hfgmmm-beybavie-mjibxpr 40,000-126,000- 168,000 unit (Zenpep) ?? take three capsules with meals ?? Discontinued Reason:? Order Completed 3 caps? PO TID 189 caps 0RF I have examined the patient and the H&P has been reviewed. There are no clinicalchanges since date of exam. 08/08/22 1427 <Electronically signed by Andreas Oliva DO> Cosigner Signature (if applicable): CC: Andreas Oliva DO; [facility]~ Signed [facility] Work Phone: Hospital Discharge instructions Additional Instructions Your CT showed some colitis on the right which is consistent with your pain. Please follow-up with your GI doctor. You been placed on a course of antibiotics.[facility] Work Phone: Hospital Discharge instructions Additional Instructions Call your primary care physician tomorrow for further instructions on your Victoza.[facility] Work Phone: Hospital Discharge instructions Additional Instructions Continue your Reglan as needed. Small amounts of water to keep yourself hydrated.[facility] Work Phone: Hospital Discharge instructions Additional Instructions Today you had a negative cardiac workup. Please continue to follow-up outpatient. Negative chest x-ray, troponin, D-dimer. Please [facility] for any worsening [facility] Work Phone: Hospital Discharge instructions Additional Instructions Follow-up your doctor in outpatient setting. Return with worsening symptoms or concerns. Your CT today did not show anything surgical. Use the prescriptions are sent to your pharmacy as prescribed.[facility] Work Phone: Hospital Discharge instructions Additional Instructions Follow with your primary care physician outpatient setting. Return with worsening symptoms or concerns. Chest x-ray is normal and your blood work was normal. Use your Reglan that you have at home for nausea and vomiting.[facility] Work Phone: Hospital Discharge instructionsAdditional Instructions [...] the ER should you have any further concernsWGu[facility] Work Phone: Hospital Discharge instructionsAdditional Instructions Follow-up with gastroenterology as soon as possible. You will be contacted should your C. difficile test be positive. Return with fever, new or worsening symptoms.[facility] Work Phone: Progress note Author Zeus Miller [facility] Note Date/Time December 09, 2024 9 :47am 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) Chicken Dresser Required: No Is patient in pain?: No Allergies ondansetron (From Zofran (as hydrochloride)) Allergy (Verified 12/09/24 08:26) Anaphylaxis pollen extracts Allergy (Verified 12/09/24 08:26) Hives metformin Adverse Reaction (Mild, Verified 12/09/24 08:26) Nausea/Vom/Diarrhea escitalopram (From Lexapro) Adverse Reaction (Verified 12/09/24 08:26) Other lactase (From Dairy Aid) Adverse Reaction (Verified 12/09/24 08:26) Upset Stomach Medications ?Medication ?Instructions ?Recorded ?Confirmed ?Type lithium carbonate 300 mg capsule 300 mg PO DAILY Bipol ar 04/05/17 12/09/24 History ferrous sulfate 325 mg (65 mg 325 mg PO QODAY suppleme nt 01/24/22 12/09/24 History iron) tablet (FeroSul) lithium carbonate 600 mg capsule 600 mg PO QHS mental health 01/24/22 12/09/24 History aripiprazole lauroxil 441 mg/1.6 441 mg IM .Q28 DAYS m [facility] 12/18/22 12/09/24 History mL suspension, ext.rel. IM syringe ([place]) cholecalciferol (vitamin D3) 25 25 mcg PO DAILY vitami n 12/18/22 12/09/24 History mcg (1,000 unit) tablet (Vitamin D3) imipramine HCl 25 mg tablet 25 mg PO DAILY [facility] 12/18/22 12/09/24 History pantoprazole 40 mg tablet,delayed 40 mg PO QHS 4 12/09/24 History release simvastatin 20 mg tablet 20 mg PO QHS 06/03/23 History diphenoxylate-atropine 2.5 1 tab PO BID PRN diarrhea # 30 tabs 10/29/23 12/09/24 Rx mg-0.025 mg tablet (Lomotil) dicyclomine 20 mg tablet 20 mg PO TID PRN abdominal p ain 05/08/24 12/09/24 Rx #30 tabs metoclopramide HCl 10 mg tablet 10 mg PO Q6H PRN nause a and 05/08/24 12/09/24 Rx (Reglan) vomiting #20 tabs miscellaneous medical supply #1 ea 05/29/24 12/09/24 R x amlodipine 2.5 mg tablet 2.5 mg PO BID 09/04/2412/09 History cyanocobalamin (vitamin B-12) 1,000 mcg sublingual YI LY 09/04/24 12/09/24 History 1,000 mcg sublingual tablet rizatriptan 10 mg tablet 10 mg PO Q2H PRN migraine he adache 09/04/24 12/09/24 History spironolactone 25 mg tablet 25 mg PO QDAY #30 tabs 12/09/24 Rx atogepant 60 mg tablet (Qulipta) 60 mg PO QDAY 5 12/09/24 History diphenoxylate-atropine 2.5 1 tab PO TID PRN 11/28/24 1 History mg-0.025 mg tablet polyethylene glycol 3350 17 4 g PO ONCE PRN constipati on 11/28/24 12/09/24 History gram/dose oral powder (Miralax) Grab Bars #1 ea 12/05/24 12/09/24 Rx metoprolol tartrate 50 mg tablet 50 mg PO BID #180 tab s 12/08/24 12/09/24 Rx norgestimate 0.25 mg-ethinyl 1 tab PO DAILY #84 tabs 1 12/09/24 Rx estradiol 0.035 mg tablet (Grundy-Linyah) Is last menstrual period known: Yes Last Menstrual Period: 11/06/24 Post menopausal: No Patient : No : No PFSH Medical History Dietary restriction Shortness of breath on exertion History of pain when walking Alcohol use Picking own skin Low iron Fatty liver Gastroparesis Cardiology follow-up encounter Obesity Depression Diabetes GERD (gastroesophageal reflux disease) Irregular heart beat Cellulitis History of echocardiogram Wears glasses Bipolar disorder Anxiety Arthritis Back pain Migraine headache Syncope Non-smoker Bipolar 1 disorder PCOS (polycystic ovarian syndrome) IBS (irritable bowel syndrome) Autism Surgical History History of colonoscopy History of esophagogastroduodenoscopy (EGD) History of tonsillectomy and adenoidectomy H/O knee surgery H/O spinal fusion Family History Mother Uterine cancer Other Asthma Depression Diabetes GERD (gastroesophageal reflux disease) Heart disease Hyperlipidemia Hypertension Social History household members: none housing: apartment [...] at home: Yes additional social history: single History 0 Elective abortions Hx Para Spontaneous abortions Hx # Term Pregnancies Ectopic pregnancies Hx # Pregnancies Multiple births # of living children HPI Encounter for routine gynecological examination Details: MARION GUTIERREZ is a 29 year old who presents for annual exam. Never sexually active. Declines pelvic exams but aware will need to do one next year for pap. She denies vaginal symptoms. She had UTI but did not finish antibiotic. Will get culture today. Last PAP: 2022 History of abnormal PAP: no Last mammogram: age 36 Other preventative health care screenings: Herbert Da Silva NP Female Reproductive History Last Menstrual Period: 11/06/24 Cycle Length: 21-35 Bleeding Duration: 4 Questions: metrorrhagia: No and sexually active: No ROS Const Constitutional: Denies fatigue, weight gain or weight loss Cardio Card: Denies chest pain Resp Resp: Denies cough or dyspnea on exertion GI GI: Denies abdominal pain, bloating, change in stool character, constipation or vomiting : Reports as per HPI; Denies difficulty voiding, pelvic pain, urinary frequency, urinary incontinence,urinary urgency, vaginal discharge or vaginal pruritus Exam Const General: cooperative, healthy appearing, no acute distress and well developed Orientation: alert, oriented to person and oriented to place HENMI Head: normal to inspection Neck Neck: normal visual inspection Thyroid: thyroid normal Lymphatic: no lymphadenopathy noted Chest Breast inspection: normal inspection of the breasts and normal inspection of theaxillae Breast palpation: normal palpation of the breasts, normal palpation of the axillae and no axillary lymphadenopathy Resp Effort & Inspection: normal respiratory effort GI Palpation: soft, no masses and nontender Rectal Exam: deferred Neuro General: patient alert and patient oriented x3 Psych Affect: normal affect Coding Level of Care Code Off vis,est,prev 18-39yrs Diagnoses Encounter for gynecological examination with abnormal finding Z01.411 Gynecological examination findings: abnormal findings PRESENT History of recurrent UTI (urinary tract infection) Z87.440 Secondary oligomenorrhea N91.4 Oligomenorrhea type: secondary Hirsutism L68.0 Dysmenorrhea N94.6 Abnormal uterine bleeding (AUB) N93.9 Assessment and Plan Assessment and Plan (1) Encounter for routine gynecological examination: Qualifiers: Gynecological examination findings: abnormal findings PRESENT QualifiedCode(s): Z01.411 - Encounter for gynecological examination (general) (routine) with abnormal findings (2) History of recurrent UTI (urinary tract infection): Status: Acute (3) Oligomenorrhea: Status: Acute Qualifiers: Oligomenorrhea type: secondary Qualified Code(s): N91.4 - Secondary oligomenorrhea Comment: OCP (4) Hirsutism: Status: Acute Comment: spirolactone/endo (5) Dysmenorrhea: Status: Acute Comment: naproxen/OCP (6) Abnormal uterine bleeding (AUB): Status: Acute Comment: OCP Orders: Orders Culture, Urine Today R30.0 - Dysuria Medications: New norgestimate-ethinyl estradiol 0.25-0.035 mg (Grundy-Linyah) 1 TAB PO DAILY 84 tabs 4RF Plan Completed breast exam. Patient declines pelvic exam Reviewed diet and exercise Pap 2022. Discussed need for pelvic exam and pap next year Mammogram age 36 breast self exam encouraged monthly Contraception abstinence Refill oral contraceptives Urine culture RTO 1 year, prn with problems Zeus Miller CNP 12/09/24 0938 <Electronically signed by Zeus burt TOBACCO WAREHOUSE AGENT TOBACCO WAREHOUSE AGENT-C> Date _ Zeus Miller TOBACCO WAREHOUSE AGENT TOBACCO WAREHOUSE AGENT-C Cosigner Signature: Date (if applicable) CC: ~ [facility] Work Phone: Reason for referral (narrative)No reason for referral information availableWGu[facility] Work Phone: Summary Purpose Family History Relationship Condition Age at Onset Recorded Date/T harjeet Not Specified Diabetes mellitus Unknown Depression Unknown Cardiac disease Unknown Hyperlipidemia Unknown Gastroesophageal reflux disease Unknown Hypertension Unknown Asthma Unknown mother Malignant neoplasm of uterus Unknown Advance Directives Advance Directive Response Recorded Date/ Time Living Will No January 18 9:17pm Power of Diesel Service Journeyman No January 18, 2021 9:17pm Advance Directive Response Recorded Date/ Time Living Will No August 16, 2021 8:30pm Power of Diesel Service Journeyman No August 16 8:30pm Advance Directive Response Recorded Date/ Time Living Will No August 29, 2021 8:19pm Power of Diesel Service Journeyman No August 29 8:19pm Advance Directive Response Recorded Date/ Time Living Will No September 03, 2021 11:58am Power of Diesel Service Journeyman No September 03 11:58am Advance Directive Response Recorded Date/ Time Living Will No September 10, 2021 2:46am Power of Diesel Service Journeyman No September 10 2:46am Advance Directive Response Recorded Date/ Time Living Will No January 24 8:04pm Power of Diesel Service Journeyman No January 24, 2022 8:04pm Advance Directive Response Recorded Date/ Time Living Will No August 04, 2022 10:54am Power of Diesel Service Journeyman No August 04 10:54am Advance Directive Response Recorded Date/ Time Living Will No August 15, 2022 7:13pm Power of Diesel Service Journeyman No August 15 7:13pm Advance Directive Response Recorded Date/ Time Living Will No November 22 9:47pm Power of Diesel Service Journeyman No November 22 9:47pm Advance Directive Response Recorded Date/ Time Living Will No December 09 8:10pm Power of Diesel Service Journeyman No December 09, 2022 8:10pm Advance Directive Response Recorded Date/ Time Living Will No December 18 5:01pm Power of Diesel Service Journeyman No December 18, 2022 5:01pm Advance Directive Response Recorded Date/ Time Living Will No December 18 7:24pm Power of Diesel Service Journeyman No December 18, 2022 7:24pm Advance Directive Response Recorded Date/ Time Living Will No December 18 6:24pm Power of Diesel Service Journeyman No December 18, 2022 6:24pm Advance Directive Response Recorded Date/ Time Living Will No April 07 024 4:17pm Power of Diesel Service Journeyman No April 07, 2023 4:17pm Advance Directive Response Recorded Date/ Time Living Will No May 08, 2023 2:47pm Power of Diesel Service Journeyman No May 07 2:47pm Advance Directive Response Recorded Date/ Time Living Will No June 03, 2023 8:45pm Power of Diesel Service Journeyman No June 02 8:45pm Advance Directive Response Recorded Date/ Time Living Will No November 26 10:03pm Power of Diesel Service Journeyman No November 26 024 10:03pm Advance Directive Response Recorded Date/ Time Living Will No November 26 10:03pm Do you have a Healthcare Power of Diesel Service Journeyman? No November 27, 2023 10:03pm Living Will No May 08, 2024 3:41pm Do you have a Healthcare Power of Diesel Service Journeyman? No May 08, 2024 3:41pm Advance Directive Response Recorded Date/ Time Living Will No May 08, 2024 3:41pm Do you have a Healthcare Power of Diesel Service Journeyman? No May 08, 2024 3:41pm Living Will No May 14, 2024 10:34pm Do you have a Healthcare Power of Diesel Service Journeyman? No May 14, 2024 10:34pm Advance Directive Response Recorded Date/ Time Living Will No May 08, 2024 3:41pm Do you have a Healthcare Power of Diesel Service Journeyman? No May 08, 2024 3:41pm Living Will No May 14, 2024 10:34pm Do you have a Healthcare Power of Diesel Service Journeyman? No May 14, 2024 10:34pm Living Will No June 03, 2024 8:41am Do you have a Healthcare Power of Diesel Service Journeyman? No June 03, 2024 8:41am Advance Directive Response Recorded Date/ Time Living Will No July 10, 2023 9 :36am Do you have a Healthcare Power of Diesel Service Journeyman? No July 10, 2023 9:36am Living Will No May 08, 2024 3:41pm Do you have a Healthcare Power of Diesel Service Journeyman? No May 08, 2024 3:41pm Living Will No May 14, 2024 10:34pm Do you have a Healthcare Power of Diesel Service Journeyman? No May 14, 2024 10:34pm Living Will No June 03, 2024 8:41am Do you have a Healthcare Power of Diesel Service Journeyman? No June 03, 2024 8:41am Advance Directive Response Recorded Date/ Time Living Will No July 10, 2023 9 :36am Do you have a Healthcare Power of Diesel Service Journeyman? No July 10, 2023 9:36am Living Will No May 08, 2024 3:41pm Do you have a Healthcare Power of Diesel Service Journeyman? No May 08, 2024 3:41pm Living Will No May 14, 2024 10:34pm Do you have a Healthcare Power of Diesel Service Journeyman? No May 14, 2024 10:34pm Do you have a Healthcare Power of Diesel Service Journeyman? No September 04, 2024 9:13pm Living Will No June 03, 2024 8:41am Do you have a Healthcare Power of Diesel Service Journeyman? No June 03, 2024 8:41am Advance Directive Response Recorded Date/ Time Living Will No July 10, 2023 9 :36am Do you have a Healthcare Power of Diesel Service Journeyman? No July 10, 2023 9:36am Living Will No May 14, 2024 10:34pm Do you have a Healthcare Power of Diesel Service Journeyman? No May 14, 2024 10:34pm Do you have a Healthcare Power of Diesel Service Journeyman? No September 04, 2024 9:13pm Living Will No June 03, 2024 8:41am Do you have a Healthcare Power of Diesel Service Journeyman? No June 03, 2024 8:41am Advance Directive Response Recorded Date/ Time Living Will No July 10, 2023 9 :36am Do you have a Healthcare Power of Diesel Service Journeyman? No July 10, 2023 9:36am Do you have a Healthcare Power of Diesel Service Journeyman? No September 04, 2024 9:13pm Do you have a Healthcare Power of Diesel Service Journeyman? No September 21, 2024 8:41pm Living Will No June 03, 2024 8:41am Do you have a Healthcare Power of Diesel Service Journeyman? No June 03, 2024 8:41am Advance Directive Response Recorded Date/ Time Living Will No July 10, 2023 9 :36am Do you have a Healthcare Power of Diesel Service Journeyman? No July 10, 2023 9:36am Do you have a Healthcare Power of Diesel Service Journeyman? No September 04, 2024 9:13pm Do you have a Healthcare Power of Diesel Service Journeyman? No September 21, 2024 8:41pm Living Will No June 03, 2024 8:41am Do you have a Healthcare Power of Diesel Service Journeyman? No June 03, 2024 8:41am Do you have a Healthcare Power of Diesel Service Journeyman? No September 27, 2024 1:22pm Advance Directive Response Recorded Date/ Time Living Will No July 10, 2023 9 :36am Do you have a Healthcare Power of Diesel Service Journeyman? No July 10, 2023 9:36am Do you have a Healthcare Power of Diesel Service Journeyman? No September 04, 2024 9:13pm Do you have a Healthcare Power of Diesel Service Journeyman? No September 21, 2024 8:41pm Do you have a Healthcare Power of Diesel Service Journeyman? No 2024 10:50am Do you have a Healthcare Power of Diesel Service Journeyman? No September 27, 2024 1:22pm Advance Directive Response Recorded Date/ Time Do you have a Healthcare Power of Diesel Service Journeyman? No September 04, 2024 9:13pm Do you have a Healthcare Power of Diesel Service Journeyman? No September 21, 2024 8:41pm Do you have a Healthcare Power of Diesel Service Journeyman? No 2024 10:50am Do you have a Healthcare Power of Diesel Service Journeyman? No September 27, 2024 1:22pm Do you have a Healthcare Power of Diesel Service Journeyman? No November 18, 2024 3:28pm Advance Directive Response Recorded Date/ Time Do you have a Healthcare Power of Diesel Service Journeyman? No September 04, 2024 8:13pm Do you have a Healthcare Power of Diesel Service Journeyman? No September 21, 2024 7:41pm Do you have a Healthcare Power of Diesel Service Journeyman? No 2024 9:50am Do you have a Healthcare Power of Diesel Service Journeyman? No September 27, 2024 12:22pm Do you have a Healthcare Power of Diesel Service Journeyman? 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 (CHAPLAIN RESIDENT) LEG Reason for Visit Dysmenorrhea Hirsutism Oligomenorrhea Hypertension Encounter for routine gynecological examination Chief Complaint Annual (CHAPLAIN RESIDENT) LEG HEADACHE Reason for Visit Dysmenorrhea Hirsutism Oligomenorrhea Hypertension Encounter for routine gynecological examination Chief Complaint Annual (CHAPLAIN RESIDENT) LEG HEADACHE NAUEA/VOMITING Reason for Visit Dysmenorrhea Hirsutism Oligomenorrhea Hypertension Encounter for routine gynecological examination Chief Complaint Annual (CHAPLAIN RESIDENT) LEG HEADACHE NAUEA/VOMITING SI Reason for Visit Dysmenorrhea Hirsutism Oligomenorrhea Hypertension Encounter for routine gynecological examination Chief Complaint 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 (CHAPLAIN RESIDENT) LEG HEADACHE NAUEA/VOMITING SI pap exam, med [...] PAIN 2 WK FU CROHN'S DISEASE Annual (CHAPLAIN RESIDENT) CHRONIC MIGRAINE Reason for Visit Crohn's disease Gastroparesis Nausea vomiting and diarrhea Dysmenorrhea Hirsutism Oligomenorrhea Encounter for routine gynecological examination Hydradenitis Chief Complaint ABD PAIN 2 WK FU CROHN'S DISEASE Annual (CHAPLAIN RESIDENT) CHRONIC MIGRAINE HYPOGLYCEMIA Reason for Visit Crohn's disease Gastroparesis Nausea vomiting and diarrhea Dysmenorrhea Hirsutism Oligomenorrhea Encounter for routine gynecological examination Hydradenitis Chief Complaint ABD PAIN 2 WK FU CROHN'S DISEASE Annual (CHAPLAIN RESIDENT) CHRONIC MIGRAINE HYPOGLYCEMIA N/V/D, SYNCOPE, HYPOTENSION Reason for Visit Crohn's disease Gastroparesis Nausea vomiting and diarrhea Dysmenorrhea Hirsutism Oligomenorrhea Encounter for routine gynecological examination Hydradenitis Chief Complaint 2 WK FU CROHN'S DISEASE Annual (CHAPLAIN RESIDENT) CHRONIC MIGRAINE HYPOGLYCEMIA N/V/D, SYNCOPE, HYPOTENSION Reason for Visit Crohn's disease Gastroparesis Nausea vomiting and diarrhea Dysmenorrhea Hirsutism Oligomenorrhea Encounter for routine gynecological examination Hydradenitis Chief Complaint 2 WK FU CROHN'S DISEASE Annual (CHAPLAIN RESIDENT) CHRONIC MIGRAINE HYPOGLYCEMIA N/V/D, SYNCOPE, HYPOTENSION SYNCOPE Reason for Visit Crohn's disease Gastroparesis Nausea vomiting and diarrhea Dysmenorrhea Hirsutism Oligomenorrhea Encounter for routine gynecological examination Hydradenitis Cellulitis Syncope Chief Complaint 2 WK FU CROHN'S DISEASE Annual (CHAPLAIN RESIDENT) CHRONIC MIGRAINE HYPOGLYCEMIA N/V/D, SYNCOPE, HYPOTENSION Syncope [...] ARM MUCH GREATER THAN LT ARM Ma 2024 9:41am Chief Complaint Admit Date N/V [...] ARM MUCH GREATER THAN LT ARM Ma 2024 9:41am 1 Y FU July 08, [...] m Nausea vomiting and diarrhea July 08, 025 9:56am Palpitations July 24, 2024 1:29p [...] RT ARM MUCH GREATER THAN LT ARM Mt y 2024 9:41am 1 Y FU July [...] RT ARM MUCH GREATER THAN LT ARM Mt 2024 9:41am 1 Y FU July 08, [...] RT ARM MUCH GREATER THAN LT ARM Mt y 2024 9:41am 1 Y FU July [...] RT ARM MUCH GREATER THAN LT ARM Mt y 2024 9:41am 1 Y FU July [...] Acute diarrhea September 25, 2024 2:2 4pm Chief Complaint Admit Date HEADACHE June 02, 2024 7:2 5pm RUQ PAIN June 03, 2024 7:1 8am HEADACHE, June 03, 2024 8:3 3am palpitations June 05, 2024 6:3 6am 30 DAY MONITOR June 05, 2024 8:0 0am BP IN RT ARM MUCH GREATER THAN LT ARM Ma 2024 9:41am 1 Y FU July 08, 2024 9:56a m 2 M FU July 24, 2024 1:29p m LESION ON LIVER August 07, 2024 1:11 pm SYNCOPE September 04, 2024 9:13 pm Diarrhea September 21, 2024 8:3 2pm Diarrhea September 25, 2024 2:2 4pm si September 27, 2024 11: 49am Reason for Visit Admit Date Palpitations July 08, 2024 9:56a m Crohn's disease July 08, 2024 9:56a m Fatty liver July 08, 2024 9:56a m Gastroparesis July 08, 2024 9:56a m Nausea vomiting and diarrhea July 08, 2 025 9:56am Palpitations July 24, 2024 1:29p m Syncope July 24, 2024 1:29p m Hypertension July 24, 2024 1:29p m Acute diarrhea September 25, 2024 2:2 4pm Palpitations September 25, 2024 2:2 4pm Crohn's disease September 25, 2024 2:2 4pm Fatty liver September 25, 2024 2:2 4pm Gastroparesis September 25, 2024 2:2 4pm Nausea vomiting and diarrhea September 25, 2024 2:24pm Chief Complaint Admit Date 1 Y FU July 08, 2024 9:56a m 2 M FU July 24, 2024 1:29p m LESION ON LIVER August 07, 2024 1:11 pm SYNCOPE September 04, 2024 9:13 pm Diarrhea September 21, 2024 8:3 2pm Diarrhea September 25, 2024 2:2 4pm si September 27, 2024 11: 49am Reason for Visit Admit Date Palpitations July 08, 2024 9:56a m Crohn's disease July 08, 2024 9:56a m Fatty liver July 08, 2024 9:56a m Gastroparesis July 08, 2024 9:56a m Nausea vomiting and diarrhea July 08, 2 025 9:56am Palpitations July 24, 2024 1:29p m Syncope July 24, 2024 1:29p m Hypertension July 24, 2024 1:29p m Palpitations September 25, 2024 2:2 4pm Crohn's disease September 25, 2024 2:2 4pm Fatty liver September 25, 2024 2:2 4pm Gastroparesis September 25, 2024 2:2 4pm Nausea vomiting and diarrhea September 25, 2024 2:24pm Acute diarrhea September 25, 2024 2:[address] of the abdomen October 9:37am LUQ abdominal pain October 27, 2024 9:37am Nausea vomiting and diarrhea October [id number] 9:37am Chief Complaint Admit Date 2 M FU July 24, 2024 1:29p m LESION ON LIVER August 07, 2024 1:11 pm SYNCOPE September 04, 2024 9:13 pm Diarrhea September 21, 2024 8:3 2pm Diarrhea September 25, 2024 2:2 4pm si September 27, 2024 11: 49am Syncope October 28, 2024 12:00am SYNCOPE October 28, 2024 10:10am Syncope November 06, 2024 5:20pm hypoglycemia November 18, 2024 3:22pm Reason for Visit Admit Date Palpitations July 24, 2024 1:29p m Syncope July 24, 2024 1:29p m Hypertension July 24, 2024 1:29p m Palpitations September 25, 2024 2:2 4pm Crohn's disease September 25, 2024 2:2 4pm Fatty liver September 25, 2024 2:2 4pm Gastroparesis September 25, 2024 2:2 4pm Nausea vomiting and diarrhea September 25, 2024 2:24pm Acute diarrhea September 25, 2024 2:[address] of the abdomen October 9:37am LUQ abdominal pain October 27, 2024 9:37am Nausea vomiting and diarrhea October 272024 9:37am Chief Complaint Admit Date SYNCOPE September 04, 2024 9:13 pm Diarrhea September 21, 2024 8:3 2pm Diarrhea September 25, 2024 2:2 4pm si September 27, 2024 11: 49am Syncope October 28, 2024 12:00am SYNCOPE October 28, 2024 10:10am Syncope November 06, 2024 5:20pm hypoglycemia November 18, 2024 3:22pm Dizziness (cardiology) November 28 1:10pm Annual (CHAPLAIN RESIDENT) December 09, 2024 8 :24am Reason for Visit Admit Date Palpitations September 25, 2024 2:2 4pm Crohn's disease September 25, 2024 2:2 4pm Fatty liver September 25, 2024 2:2 4pm Gastroparesis September 25, 2024 2:2 4pm Nausea vomiting and diarrhea September 25, 2024 2:24pm Acute diarrhea September 25, 2024 2:[address] of the abdomen October 9:37am LUQ abdominal pain October 27, 2024 9:37am Nausea vomiting and diarrhea October 272024 9:37am Chest pain November 28, 2024 1 :10pm Palpitations November 28, 2024 1 :10pm Syncope November 28, 2024 1 :10pm Hypertension November 28, 2024 1 :10pm Abnormal uterine bleeding (AUB) December 09, 2024 8:24am Dysmenorrhea December 09, 2024 8 :24am Hirsutism December 09, 2024 8 :24am History of recurrent UTI (urinary tract infection) December 09, 2024 8:24am Oligomenorrhea December 09, 2024 8 :24am Encounter for routine gynecological exam ination December 09, 2024 8:24am Reason for Referral Specialty Diagnoses / Procedures Referred By Contac t Referred To Contact Diagnoses PCOS (polycystic ovarian syndrome) Obesity, Class III, BMI 40-49.9 (morbid obesity) ([facility]) Procedures ENDOCRINOLOGY DIETITIAN VISIT (MNT) MEDICAL NUTRITION ASSMT&IVNTJ INDIV EACH 15 MT MEDICAL NUTRITION ASSMT&IVNTJ INDIV EACH 15 MT MEDICAL NUTRITION ASSMT&IVNTJ INDIV EACH 15 MT MEDICAL NUTRITION ASSMT&IVNTJ INDIV EACH 15 MT Jey Johnson MD [address] [place] [address] Referral ID Status Reason Start Date Expiration Date Visits Requested Visits Authorized [id number] Authorized PCP Requested Referral 4 01/07/2025 1 1 Additional Source Comments INFORMATION SOURCE (unrecogn ized section and content) DATE CREATED AUTHOR 08/14/2017 [facility] DATE CREATED AUTHOR AUTHOR'S ORGANIZ ATION 08/14/2017 [facility] DATE CREATED AUTHOR AUTHOR'S ORGANIZ ATION 02/16/2021 [facility] DATE CREATED AUTHOR AUTHOR'S ORGANIZ ATION 12/19/2022 [facility] ([place]) DATE CREATED AUTHOR AUTHOR'S ORGANIZ ATION 04/18/2023 [facility] DATE CREATED AUTHOR AUTHOR'S ORGANIZ ATION 01/02/2024 [facility] Specialists EPIC DATE CREATED AUTHOR AUTHOR'S ORGANIZ ATION 05/17/2024 [facility] DATE CREATED AUTHOR AUTHOR'S ORGANIZ ATION 12/20/2024 [facility] DATE CREATED AUTHOR AUTHOR'S ORGANIZ ATION 12/23/2024 [facility] Goals (unrecognized section and content) Goals may be documented in a n alternate section Source Comments (unrecognize d section and content) In the event this informatio n is protected by the Federal Confidentiality of Alcohol and Drug Abuse Patient Records regulations: The Federal rules restrict any use of the information to criminally investigate or prosecute any alcohol or drug abuse patient.[facility] the event this information is protected by the Federal Confidentiality of Alcohol and Drug Abuse Patient Records regulations: The Federal rules restrict any use of the information to criminally investigate or prosecute any alcohol or drug abuse patient.[facility] the event this information is protected by the Federal Confidentiality of Alcohol and Drug Abuse Patient Records regulations: The Federal rules restrict any use of the information to criminally investigate or prosecute any alcohol or drug abuse patient.[facility] the event this information is protected by the Federal Confidentiality of Alcohol and Drug Abuse Patient Records regulations: The Federal rules restrict any use of the information to criminally investigate or prosecute any alcohol or drug abuse patient.[facility] the event this information is protected by the Federal Confidentiality of Alcohol and Drug Abuse Patient Records regulations: The Federal rules restrict any use of the information to criminally investigate or prosecute any alcohol or drug abuse patient.[facility] the event this information is protected by the Federal Confidentiality of Alcohol and Drug Abuse Patient Records regulations: The Federal rules restrict any use of the information to criminally investigate or prosecute any alcohol or drug abuse patient.[facility] AndersonIn the event this information is protected by the Federal Confidentiality of Alcohol and Drug Abuse Patient Records regulations: The Federal rules restrict any use of the information to criminally investigate or prosecute any alcohol or drug abuse patient.[facility] AndersonIn the event this information is protected by the Federal Confidentiality of Alcohol and Drug Abuse Patient Records regulations: The Federal rules restrict any use of the information to criminally investigate or prosecute any alcohol or drug abuse patient.[facility] AndersonIn the event this information is protected by the Federal Confidentiality of Alcohol and Drug Abuse Patient Records regulations: The Federal rules restrict any use of the information to criminally investigate or prosecute any alcohol or drug abuse patient.[facility] AndersonIn the event this information is protected by the Federal Confidentiality of Alcohol and Drug Abuse Patient Records regulations: The Federal rules restrict any use of the information to criminally investigate or prosecute any alcohol or drug abuse patient.[facility] AndersonIn the event this information is protected by the Federal Confidentiality of Alcohol and Drug Abuse Patient Records regulations: The Federal rules restrict any use of the information to criminally investigate or prosecute any alcohol or drug abuse patient.[facility] AndersonIn the event this information is protected by the Federal Confidentiality of Alcohol and Drug Abuse Patient Records regulations: The Federal rules restrict any use of the information to criminally investigate or prosecute any alcohol or drug abuse patient.[facility] AndersonIn the event this information is protected by the Federal Confidentiality of Alcohol and Drug Abuse Patient Records regulations: The Federal rules restrict any use of the information to criminally investigate or prosecute any alcohol or drug abuse patient.[facility] [facility] AndersonIn the event this information is protected by the Federal Confidentiality of Alcohol and Drug Abuse Patient Records regulations: The Federal rules restrict any use of the information to criminally investigate or prosecute any alcohol or drug abuse patient.[facility] AndersonIn the event this information is protected by the Federal Confidentiality of Alcohol and Drug Abuse Patient Records regulations: The Federal rules restrict any use of the information to criminally investigate or prosecute any alcohol or drug abuse patient.[facility] AndersonIn the event this information is protected by the Federal Confidentiality of Alcohol and Drug Abuse Patient Records regulations: The Federal rules restrict any use of the information to criminally investigate or prosecute any alcohol or drug abuse patient.[facility] AndersonIn the event this information is protected by the Federal Confidentiality of Alcohol and Drug Abuse Patient Records regulations: The Federal rules restrict any use of the information to criminally investigate or prosecute any alcohol or drug abuse patient.[facility] AndersonIn the event this information is protected by the Federal Confidentiality of Alcohol and Drug Abuse Patient Records regulations: The Federal rules restrict any use of the information to criminally investigate or prosecute any alcohol or drug abuse patient.[facility] AndersonIn the event this information is protected by the Federal Confidentiality of Alcohol and Drug Abuse Patient Records regulations: The Federal rules restrict any use of the information to criminally investigate or prosecute any alcohol or drug abuse patient.[facility] AndersonIn the event this information is protected by the Federal Confidentiality of Alcohol and Drug Abuse Patient Records regulations: The Federal rules restrict any use of the information to criminally investigate or prosecute any alcohol or drug abuse patient.[facility] AndersonIn the event this information is protected by the Federal Confidentiality of Alcohol and Drug Abuse Patient Records regulations: The Federal rules restrict any use of the information to criminally investigate or prosecute any alcohol or drug abuse patient.[facility] AndersonIn the event this information is protected by the Federal Confidentiality of Alcohol and Drug Abuse Patient Records regulations: The Federal rules restrict any use of the information to criminally investigate or prosecute any alcohol or drug abuse patient.[facility] AndersonIn the event this information is protected by the Federal Confidentiality of Alcohol and Drug Abuse Patient Records regulations: The Federal rules restrict any use of the information to criminally investigate or prosecute any alcohol or drug abuse patient.[facility] AndersonIn the event this information is protected by the Federal Confidentiality of Alcohol and Drug Abuse Patient Records regulations: The Federal rules restrict any use of the information to criminally investigate or prosecute any alcohol or drug abuse patient.[facility] AndersonIn the event this information is protected by the Federal Confidentiality of Alcohol and Drug Abuse Patient Records regulations: The Federal rules restrict any use of the information to criminally investigate or prosecute any alcohol or drug abuse patient.[facility] AndersonIn the event this information is protected by the Federal Confidentiality of Alcohol and Drug Abuse Patient Records regulations: The Federal rules restrict any use of the information to criminally investigate or prosecute any alcohol or drug abuse patient.[facility] AndersonIn the event this information is protected by the Federal Confidentiality of Alcohol and Drug Abuse Patient Records regulations: The Federal rules restrict any use of the information to criminally investigate or prosecute any alcohol or drug abuse patient.[facility] AndersonIn the event this information is protected by the Federal Confidentiality of Alcohol and Drug Abuse Patient Records regulations: The Federal rules restrict any use of the information to criminally investigate or prosecute any alcohol or drug abuse patient.[facility] [place] Care Teams (unrecognized sec tion and content) Team Status: Active Member Role Status Dates Naina MCBRIDE, TOBACCO WAREHOUSE AGENT-C Primary Care Provider Activ e Team Status: Inactive Member Role Status Dates Naina Da Silva VSKimi, TOBACCO WAREHOUSE AGENT-C Primary Care Provider Activ e Start: January 14, 2024 End: January 14, 2024 Naina Da Silva VSC, TOBACCO WAREHOUSE AGENT-C Referring Provider Active Start: January 14, 2024 End: January 14, 2024 Dr. Marco Bartlett MD Attending Provider Active Start: January 14, 2024 End: January 14, 2024 Team Status: Inactive Member Role Status Dates Naina Da Silva VSC, TOBACCO WAREHOUSE AGENT-C Primary Care Provider Activ e Start: February 05, 2024 End: February 05, 2024 Zebulun Beam VSC, TOBACCO WAREHOUSE AGENT-C Attending Provider Active Start: February 05, 2024 End: February 05, 2024 Team Status: Inactive Member Role Status Dates Naina Da Silva VSC, TOBACCO WAREHOUSE AGENT-C Primary Care Provider Activ e Start: April 22, 2024 End: April 22, 2024 Zebulun Beam VSC, TOBACCO WAREHOUSE AGENT-C Attending Provider Active Start: April 22, 2024 End: April 22, 2024 Team Status: Active Member Role Status Dates Naina Da Silva VSC, TOBACCO WAREHOUSE AGENT-C Primary Care Provider Activ e Start: May 07, 2024 Zebulun Beam VSC, TOBACCO WAREHOUSE AGENT-C Attending Provider Active Start: May 07, 2024 Team Status: Inactive Member Role Status Dates Naina Da Silva VSC, TOBACCO WAREHOUSE AGENT-C Primary Care Provider Activ e Start: May 08, 2024 End: May 08, 2024 Dr. Stan Lin DO Referring Provider Active Start: May 08, 2024 End: May 08, 2024 Dr. Stan Lin DO Emergency Provider Active Start: May 08, 2024 End: May 08, 2024 Bench Molder Apprentice Relationship Specialty Start Date End Date Crys Obrien PCP - General Family Practice 01/13/19 Ernesto Carter, DO Family Practice 06/15/16 Bench Molder Apprentice Relationship Specialty Start Date End Date Crys Obrien PCP - General Family Medicine 01/13/19 Ernesto Carter, DO Family Medicine 06/15/16 Team Status: Active Member Role Status Dates [facility] Family Provider Active [facility] Primary Care Provider A ctive Team Status: Inactive Member Role Status Dates [facility] Primary Care Provider, Referring Provider Active Dr. Andreas Oliva DO Attending Provider Active Team Status: Inactive Member Role Status Dates [facility] Primary Care Provider, Referring Provider Active Zeus Miller TOBACCO WAREHOUSE AGENT, TOBACCO WAREHOUSE AGENT-C Attending Provider Active Team Status: Inactive Member Role Status [facility] Primary Care Provider A ctive WILLIAMS GREGORIO Attending Provider, Referring Provider Active Team Status: Inactive Member Role Status Dates [facility] Primary Care Provider A ctive Dr. Clay Causey MD Attending Provider, Referring Provider Active Vani Carlson , TOBACCO WAREHOUSE AGENT-C Other Provider Active Karina Guerra TOBACCO WAREHOUSE AGENT, TOBACCO WAREHOUSE AGENT-C Other Provider Active Team Status: Inactive Member Role Status [facility] Primary C are Provider, Attending Provider, Referring Provider Active Naina Da Silva TOBACCO WAREHOUSE AGENT, TOBACCO WAREHOUSE AGENT-C Other Provider Active Team Status: Inactive Member Role Status [facility] Primary Care Provider A ctive Dr. Martin Pace , DO Attending Provider, Emergency P rovider Active Team Status: Inactive Member Role Status [facility] Primary Care Provider A ctive Dr. Coni Angelo , DO Attending Provider, Emergency P rovider Active Team Status: Inactive Member Role Status [facility] Primary Care Provider A ctive Dr. Andreas Oliva DO Attending Provider, Referring Provider Active Zeus Miller TOBACCO WAREHOUSE AGENT, TOBACCO WAREHOUSE AGENT-C Other Provider Active Team Status: Inactive Member Role Status [facility] Primary Care Provider A ctive Dr. Andreas Oliva DO Attending Provider, Referring Provider Active Team Status: Active Member Role Status [facility] Primary Care Provider A ctive Dr. Andreas Oliva DO Attending Provider, Referring Provider Active Team Status: Inactive Member Role Status [facility] Primary Care Provider A ctive Karina Guerra TOBACCO WAREHOUSE AGENT, TOBACCO WAREHOUSE AGENT-C Attending Provider, Referring Provider Active Zeus Miller TOBACCO WAREHOUSE AGENT, TOBACCO WAREHOUSE AGENT-C Other Provider Active Team Status: Active Member Role Status [facility] Primary Care Provider A ctive Dr. Andreas Oliva DO Attending Provid er, Referring Provider, Other Provider Active Team Status: Inactive Member Role Status [facility] Primary Care Provider A ctive Dr. David Etienne DO Emergency Provider Active Team Status: Inactive Member Role Status [facility] Primary Care Provider A ctive Dr. David Etienne DO Attending Provider, Emergency Provider Active Team Status: Inactive Member Role Status [facility] Primary Care Provider A ctive Dr. Andreas Oliva DO Attending Provider, Referring Provider Active Naina Da Silva TOBACCO WAREHOUSE AGENT, TOBACCO WAREHOUSE AGENT-C Other Provider Active Team Status: Inactive Member Role Status [facility] Primary Care Provider A ctive Dr. Nolan Lo MD Attending Provider, Referring Provider Active Team Status: Inactive Member Role Status Dates [facility] Primary Care Provider A ctive Zeus Miller TOBACCO WAREHOUSE AGENT, TOBACCO WAREHOUSE AGENT-C Attending Provider, Referring Provider Active Team Status: Inactive Member Role Status [facility] Primary Care Provider A ctive Dr. Ozzy Bright DO Emergency Provider Active Team Status: Inactive Member Role Status [facility] Primary Care Provider A ctive Dr. Ozzy Bright DO Attending Provider, Emergency P gerard Active Team Status: Inactive Member Role Status [facility] Primary Care Provider A ctive Rodolfo Das MD Emergency Provider Active Team Status: Inactive Member Role Status [facility] Primary Care Provider A ctive Rodolfo Das MD Attending Provider, Emergency Provid er Active Team Status: Active Member Role Status [facility] Primary Care Provider A ctive Dr. Sarah Purdy MD Emergency Provider Active Dr. [place] Wisdom DO Admit Provider, Attending Pro vider Active Team Status: Active Member Role Status [facility] Primary Care Provider A ctive Dr. Sarah Purdy MD Emergency Provider Active Dr. [place] Wisdom DO Admit Provider, Attending Provider, Other Provider Active Team Status: Active Member Role Status [facility] Primary Care Provider A ctive Dr. Garrick Mcgowan MD Attending Provider Active Team Status: Active Member Role Status [facility] Primary Care Provider A ctive Dr. Sarah Purdy MD Emergency Provider Active Dr. [place] Wisdom DO Admit Provider, Other Provide r Active Dr. Laura Li MD Attending Provider, Other Provid er Active Team Status: Inactive Member Role Status Dates [facility] Primary Care Provider A ctive Dr. Sarah Purdy MD Emergency Provider Active Dr. [place] Wisdom DO Admit Provider, Other Provide r Active Dr. Laura Li MD Attending Provider Active Team Status: Active Member Role Status Dates [facility] Family Provider Active Naina Da Silva TOBACCO WAREHOUSE AGENT, TOBACCO WAREHOUSE AGENT-C Primary Care Provider Active Team Status: Inactive Member Role Status Dates Naina Da Silva TOBACCO WAREHOUSE AGENT, TOBACCO WAREHOUSE AGENT-C Primary Care Provider Active Dr. Laura Li MD Attending Provider, Referring Pr ovider Active Team Status: Inactive Member Role Status Dates Naina Da Silva TOBACCO WAREHOUSE AGENT, TOBACCO WAREHOUSE AGENT-C Primary Care Provider Active Dr. Andreas Oliva DO Attending Provider, Referring Provider Active Team Status: Inactive Member Role Status Dates [facility] Referring Provider Acti ve Dr. Hubert Mo MD Attending Provider Active Naina Da Silva TOBACCO WAREHOUSE AGENT, TOBACCO WAREHOUSE AGENT-C Primary Care Provider Active Team Status: Inactive Member Role Status Dates Naina Da Silva TOBACCO WAREHOUSE AGENT, TOBACCO WAREHOUSE AGENT-C Primary Care Provider Active Dr. Bridger Kamara DO Emergency Provider Active Team Status: Inactive Member Role Status Dates Naina Da Silva TOBACCO WAREHOUSE AGENT, TOBACCO WAREHOUSE AGENT-C Primary Care Provider Active Dr. Bridger Kamara DO Attending Provider, Emergency P gerard Active Team Status: Inactive Member Role Status Dates Naina Da Silva TOBACCO WAREHOUSE AGENT, TOBACCO WAREHOUSE AGENT-C Primary Care Provider Active Dr. Sarah Purdy MD Emergency Provider Active Bench Molder Apprentice Relationship Specialty Start Date End Date [facility], [facility] [address] [place] [address] PCP - General 05/08/23 Ernesto Carter DO Family Medicine 06/15/16 Team Status: Inactive Member Role Status Dates Naina Da Silva TOBACCO WAREHOUSE AGENT, TOBACCO WAREHOUSE AGENT-C Primary Care Provider Active Dr. Sarah Purdy MD Attending Provider, Emergency Provider Active Team Status: Inactive Member Role Status Dates Naina Da Silva TOBACCO WAREHOUSE AGENT, TOBACCO WAREHOUSE AGENT-C Primary Care Provider Active Rodolfo Das MD Emergency Provider Active Bench Molder Apprentice Relationship Specialty Start Date End Date [facility], [facility] PCP - General 05/08/23 Ernesto Carter DO Family Medicine 06/15/16 Naina DaS ilva NP [address] [place] [address] Referring Family Medicine 09/05/23 Bench Molder Apprentice Relationship Specialty Start Date End Date [facility], [facility] PCP - General 05/08/23 Ernesto Carter, DO Family Medicine 06/15/16 Naina Da Silva NP [address] [place] [address] Referring Family Medicine 09/05/23 Bench Molder Apprentice Relationship Specialty Start Date End Date [facility] PCP - General 05/08/23 Ernesto aCrter, DO Family Medicine 06/15/16 Naina Da Silva NP [address] [place], [place] [address] Referring Family Medicine 09/05/23 Bench Molder Apprentice Relationship Specialty Start Date End Date Crys Obrien CNP PCP - General Family Medicine 01/13/19 05/07/23 Ernesto Carter, Family Medicine 06/15/16 Bench Molder Apprentice Relationship Specialty Start Date End Date Unallocated, Noms MD [address] [place] [address] PCP - General 07/31/22 [place] TOBACCO WAREHOUSE AGENT [address] [place] [address] PCP - [facility] 08/20/23 Bench Molder Apprentice Relationship Specialty Start Date End Date Unallocated, Dcs MD Tabatha [address] [place] [id number] PCP - General 07/31/22 [place] TOBACCO WAREHOUSE AGENT [address] [place] [address] PCP - [facility] 08/20/23 Bench Molder Apprentice Relationship Specialty Start Date End Date Unallocated, Noms MD Tabatha [address] [place] [address] PCP - General 07/31/22 [place] TOBACCO WAREHOUSE AGENT [address] [place] [address] PCP - [facility] 08/20/23 Bench Molder Apprentice Relationship Specialty Start [facility] - [facility]23 Ernesto Carter DO Family Medicine 06/15/16 Naina Da Silva NP [address] [place] [address] Referring Family Medicine 09/05/23 Bench Molder Apprentice Relationship Specialty Start Date [facility] - [facility]08[facility]23 Ernesto Carter DO Family Medicine 06/15/16 Naina Da Silva NP [address] [place] [address] Referring Family Medicine 09/05/23 Bench Molder Apprentice Relationship Specialty Start Date End Date [facility], [facility] PCP - General 05/08/23 Ernesto Carter, Family Medicine 06/15/16 Naina Da Silva NP [address] [place] [address] Referring Family Medicine 09/05/23 Bench Molder Apprentice Relationship Specialty Start Date End Date [facility], [facility] PCP - General 05/08/23 Ernesto Carter DO Family Medicine 06/15/16 Naina Da Silva NP [address] [place] [address] Referring Family Medicine 09/05/23 Team Status: Active Member Role Status Dates Naina Da Silva TOBACCO WAREHOUSE AGENT, TOBACCO WAREHOUSE AGENT-C Primary Care Provider Active Dr. Johns Friend , DO Attending Provider, Referring Provider Active Bench Molder Apprentice Relationship Specialty Start Date End Date [facility] PCP - General 05/08/23 Ernesto Carter DO Family Medicine 06/15/16 Naina Da Silva NP [address] [place] [address] Referring Family Medicine 09/05/23 Bench Molder Apprentice Relationship Specialty Start Date End Date [facility], [facility] PCP - General 05/08/23 Ernesto Carter DO Family Medicine 06/15/16 Naina Da Silva NP [address] [place] [address] [phone] (work) Referring Family Medicine 09/05/23 Team Status: Active Member Role Status Dates [facility] Family Provider Active Naina Da Silva VSC, TOBACCO WAREHOUSE AGENT-C Primary Care Provider Activ e Team Status: Inactive Member Role Status Dates Naina Da Silva VSC, TOBACCO WAREHOUSE AGENT-C Primary Care Provider Activ e Start: May 14, 2024 End: May 15, 2024 Dr. Stan Lin , Emergency Provider Active Start: May 14, 2024 End: May 15, 2024 Team Status: Inactive Member Role Status Dates Naina Da Silva VSC, TOBACCO WAREHOUSE AGENT-C Primary Care Provider Activ e Start: May 07, 2024 End: May 07, 2024 Vazquezbudeb iLm VSC, TOBACCO WAREHOUSE AGENT-C Attending Provider Active Start: May 07, 2024 End: May 07, 2024 Team Status: Active Member Role Status Dates Karuna Beam VSC, TOBACCO WAREHOUSE AGENT-C Primary Care Provider Active Team Status: Inactive Member Role Status Dates Naina Da Silva VSC, TOBACCO WAREHOUSE AGENT-C Primary Care Provider Activ e Start: May [...] Member Role Status Dates Naina Da Silva DANIELLEC, TOBACCO WAREHOUSE AGENT-C Primary Care Provider Activ e Start: May 14, 2024 End: May 15, 2024 Dr. Stan Lin DO Attending Provider Active Start: May 14, 2024 End: May 15, 2024 Dr. Stan Lin DO Emergency Provider Active Start: May 14, 2024 End: May 15, 2024 Team Status: Inactive Member Role Status Dates Karina Guerra TOBACCO WAREHOUSE AGENT, TOBACCO WAREHOUSE AGENT-C Attending Provider Active Start: May 23, 2024 End: May 23, 2024 Karina Guerra TOBACCO WAREHOUSE AGENT, TOBACCO WAREHOUSE AGENT-C Referring Provider Active Start: May 23, 2024 End: May 23, 2024 Zebuluadalgisa Beam VSC, TOBACCO WAREHOUSE AGENT-C Primary Care Provider Active Start: May 23, 2024 End: May 23, 2024 Team Status: Inactive Member Role Status Dates Naina Da Silva VSC, TOBACCO WAREHOUSE AGENT-C Referring Provider Active Start: May 29, 2024 End: May 29, 2024 Shawanda Ramires TOBACCO WAREHOUSE AGENT, TOBACCO WAREHOUSE AGENT-C Attending Provider Active Start: May 29, 2024 End: May 29, 2024 Zebudeb Beam VSC, TOBACCO WAREHOUSE AGENT-C Primary Care Provider Active Start: May 29, 2024 End: May 29, 2024 Team Status: Inactive Member Role Status Dates Zebulun Beam VSC, TOBACCO WAREHOUSE AGENT-C Primary Care Provider Active Start: June 02, 2024 End: June 02, 2024 Ed Physician Provider Emergency Provider Active Start: June 02, 2024 End: June 02, 2024 Bench Molder Apprentice Relationship Specialty Start Date End Date [facility] PCP - General 05/08/23 Ernesto Carter DO Family Medicine 06/15/16 Naina Da Silva NP [address] [place] [address] Referring Family Medicine 09/05/23 Team Status: Active Member Role Status Dates Zebulun Beam VSC, TOBACCO WAREHOUSE AGENT-C Primary Care Provider Active Start: June 03, 2024 Zebulun Beam VSC, TOBACCO WAREHOUSE AGENT-C Attending Provider Active Start: June 03, 2024 Zebulun Beam VSC, TOBACCO WAREHOUSE AGENT-C Referring Provider Active Start: June 03, 2024 Team Status: Inactive Member Role Status Dates Zebulun Beam VSC, TOBACCO WAREHOUSE AGENT-C Primary Care Provider Active Start: June 03, 2024 End: June 03, 2024 Dr. Jaylon Galicia MD Emergency Provider Active Start: June 03, 2024 End: June 03, 2024 Team Status: Inactive Member Role Status Dates Zebulun Beam VSC, TOBACCO WAREHOUSE AGENT-C Primary Care Provider Active Start: June 02, 2024 End: June 02, 2024 Ed Physician Provider Attending Provider Active Start: June 02, 2024 End: June 02, 2024 Ed Physician Provider Emergency Provider Active Start: June 02, 2024 End: June 02, 2024 Team Status: Inactive Member Role Status Dates Zebulun Beam VSC, TOBACCO WAREHOUSE AGENT-C Primary Care Provider Active Start: June 03, 2024 End: June 03, 2024 Zebulun Beam VSC, TOBACCO WAREHOUSE AGENT-C Attending Provider Active Start: June 03, 2024 End: June 03, 2024 Zebulun Beam VSC, TOBACCO WAREHOUSE AGENT-C Referring Provider Active Start: June 03, 2024 End: June 03, 2024 Team Status: Inactive Member Role Status Dates Zebulun Beam VSC, TOBACCO WAREHOUSE AGENT-C Primary Care Provider Active Start: June 03, 2024 End: June 03, 2024 Dr. Jaylon Galicia MD Attending Provider Active Start: June 03, 2024 End: June 03, 2024 Dr. Jaylon Galicia MD Emergency Provider Active Start: June 03, 2024 End: June 03, 2024 Team Status: Active Member Role Status Dates Zebulun Beam VSC, TOBACCO WAREHOUSE AGENT-C Primary Care Provider Active Start: June 05, 2024 Shawanda Ramires TOBACCO WAREHOUSE AGENT, TOBACCO WAREHOUSE AGENT-C Attending Provider Active Start: June 05, 2024 Shawanda Ramires TOBACCO WAREHOUSE AGENT, TOBACCO WAREHOUSE AGENT-C Referring Provider Active Start: June 05, 2024 Team Status: Inactive Member Role Status Dates Zebulun Beam VSC, TOBACCO WAREHOUSE AGENT-C Primary Care Provider Active Start: June 10, 2024 End: June 10, 2024 Zebulun Beam VSC, TOBACCO WAREHOUSE AGENT-C Attending Provider Active Start: June 10, 2024 End: June 10, 2024 Team Status: Inactive Member Role Status Dates Zebulun Beam VSC, TOBACCO WAREHOUSE AGENT-C Primary Care Provider Active Start: June 20, 2024 End: June 20, 2024 Shawanda Ramires TOBACCO WAREHOUSE AGENT, TOBACCO WAREHOUSE AGENT-C Attending Provider Active Start: June 20, 2024 End: June 20, 2024 Shawanda Ramires TOBACCO WAREHOUSE AGENT, TOBACCO WAREHOUSE AGENT-C Referring Provider Active Start: June 20, 2024 End: June 20, 2024 Team Status: Active Member Role Status Dates Zebulun Beam VSC, TOBACCO WAREHOUSE AGENT-C Primary Care Provider Active Start: June 20, 2024 Dr. Ozzy Greco MD Attending Provider Active S tart: June 20, 2024 Bench Molder Apprentice Relationship Specialty Start Date End Date [facility], Daniel Tierney PCP - General 05/08/23 Ernesto Carter DO Family Medicine 06/15/16 Naina Da Silva NP [address] [place] [address] Referring Family [facility] 09/05/23 Team Status: Active Member Role Status Dates Zebudeb Beam VSC, TOBACCO WAREHOUSE AGENT-C Primary Care Provider Active Start: June 05, 2024 Dr. Marco Bartlett MD Attending Provider Active Start: June 05, 2024 Shawanda Ramires TOBACCO WAREHOUSE AGENT, TOBACCO WAREHOUSE AGENT-C Referring Provider Active Start: June 05, 2024 Team Status: Active Member Role Status Dates Zebuluadalgisa Beam VSC, TOBACCO WAREHOUSE AGENT-C Primary Care Provider Active Start: June 20, 2024 Dr. Ozzy Greco MD Attending Provider Active S tart: June 20, 2024 Shawanda Ramires TOBACCO WAREHOUSE AGENT, TOBACCO WAREHOUSE AGENT-C Referring Provider Active Start: June 20, 2024 Team Status: Inactive Member Role Status Dates Naina Da Silva VSC, TOBACCO WAREHOUSE AGENT-C Referring Provider Active Start: July 08, 2024 End: July 08, 2024 Dr. Andreas Oliva DO Attending Provider Active Start: July 08, 2024 End: July 08, 2024 Zebulun Beam VSC, TOBACCO WAREHOUSE AGENT-C Primary Care Provider Active Start: July 08, 2024 End: July 08, 2024 Bench Molder Apprentice Relationship Specialty Start Date End Date [facility] PCP - General 05/08/23 Ernesto Carter DO Family Medicine 06/15/16 Naina Da Silva NP [address] [place] [address] Referring Family Medicine 09/05/23 Team Status: Inactive Member Role Status Dates Zebulun Beam VSC, [employer] WAREHOUSE AGENT-C Primary Care Provider Active Start: July 24, 2024 End: July 24, 2024 Zebulun Beam VSC, [employer] WAREHOUSE AGENT-C Referring Provider Active Start: July 24, 2024 End: July 24, 2024 Shawanda Ramires TOBAC[employer] WAREHOUSE AGENT, TOB[employer] WAREHOUSE AGENT-C Attending Provider Active Start: July 24, 2024 End: July 24, 2024 Bench Molder Apprentice Relationship Specialty Start Date End Date [facility], [facility] PCP - General 05/08/23 Ernesto Carter DO Family Medicine 06/15/16 Naina Da Silva NP [address] [place], [place] [id number] Referring Family Medicine 09/05/23 Team Status: Inactive Member Role Status Dates Karuna Beam VSC, [employer] WAREHOUSE AGENT-C Primary Care Provider Active Start: August 07, 2024 End: August 07, 2024 Dr. Andreas Oliva DO Attending Provider Active Start: August 07, 2024 End: August 07, 2024 Dr. Andreas Oliva DO Referring Provider Active Start: August 07, 2024 End: August 07, 2024 Bench Molder Apprentice Relationship Specialty Start Date End Date [facility], [facility] PCP - General 05/08/23 Ernesto Carter DO Family Medicine 06/15/16 Naina Da Silva NP [phone] [place], [place] [id number] Referring Family Medicine 09/05/23 Bench Molder Apprentice Relationship Specialty Start Date End Date [facility], Daniel [facility]ney PCP - General 05/08/23 Ernesto Carter DO Family Medicine 06/15/16 Naina Da Silva NP [address] [place], [place] [address] Referring Family Medicine 09/05/23 Team Status: Active Member Role/Relationship Status Dates Karuna Lim VSC, [employer] WAREHOUSE AGENT-C Primary Care Provider Active Team Status: Inactive Member Role/Relationship Status Dates Naina SANTOSC, [employer] WAREHOUSE AGENT-C Primary Care Provider Activ e Start: May 07, 2024 End: May 07, 2024 Zebudeb Beam VSC, [employer] WAREHOUSE AGENT-C Attending Provider Active Start: May 07, 2024 End: May 07, 2024 Team Status: Inactive Member Role/Relationship Status Dates Naina Da Silva VSC, [employer] WAREHOUSE AGENT-C Primary Care Provider Activ e Start: May [...] Inactive Member Role/Relationship Status Dates Naina SANTOSC, TOBAC[employer] WAREHOUSE AGENT-C Primary Care Provider Activ e Start: May 14, 2024 End: May 15, 2024 Dr. Stan Lin DO Attending Provider Active Start: May 14, 2024 End: May 15, 2024 Dr. Stan Lin DO Emergency Provider Active Start: May 14, 2024 End: May 15, 2024 Team Status: Inactive Member Role/Relationship Status Dates Karina Guerra TOBAC[employer] WAREHOUSE AGENT, TOB[employer] WAREHOUSE AGENT-C Attending Provider Active Start: May 23, 2024 End: May 23, 2024 Karina Guerra TOBAC[employer] WAREHOUSE AGENT, TOBAC[employer] WAREHOUSE AGENT-C Referring Provider Active Start: May 23, 2024 End: May 23, 2024 Zebudeb Beam VSC, [employer] WAREHOUSE AGENT-C Primary Care Provider Active Start: May 23, 2024 End: May 23, 2024 Team Status: Inactive Member Role/Relationship Status Dates Naina Da Silva VSC, [employer] WAREHOUSE AGENT-C Referring Provider Active Start: May 29, 2024 End: May 29, 2024 Shawanda Ramires TOBAC[employer] WAREHOUSE AGENT, TOBACCO WAREHOUSE AGENT-C Attending Provider Active Start: May 29, 2024 End: May 29, 2024 Zebuluadalgisa Beam VSC, [employer] WAREHOUSE AGENT-C Primary Care Provider Active Start: May 29, 2024 End: May 29, 2024 Team Status: Inactive Member Role/Relationship Status Dates Karuna Beam VSC, [employer] WAREHOUSE AGENT-C Primary Care Provider Active Start: June 02, 2024 End: June 02, 2024 Ed Physician Provider Attending Provider Active Start: June 02, 2024 End: June 02, 2024 Ed Physician Provider Emergency Provider Active Start: June 02, 2024 End: June 02, 2024 Team Status: Inactive Member Role/Relationship Status Dates Zebulun Beam VSC, [employer] WAREHOUSE AGENT-C Primary Care Provider Active Start: June 03, 2024 End: June 03, 2024 Zebulun Beam VSC, [employer] WAREHOUSE AGENT-C Attending Provider Active Start: June 03, 2024 End: June 03, 2024 Zebulun Beam VSC, [employer] WAREHOUSE AGENT-C Referring Provider Active Start: June 03, 2024 End: June 03, 2024 Team Status: Inactive Member Role/Relationship Status Dates Zebulun Beam VSC, [employer]BAC[employer] WAREHOUSE AGENT-C Primary Care Provider Active Start: June 03, 2024 End: June 03, 2024 Dr. Jaylon Galicia MD Attending Provider Active Start: June 03, 2024 End: June 03, 2024 Dr. Jaylon Galicia MD Emergency Provider Active Start: June 03, 2024 End: June 03, 2024 Team Status: Active Member Role/Relationship Status Dates Zebulun Beam VSC, [employer]BAC[employer] WAREHOUSE AGENT-C Primary Care Provider Active Start: June 05, 2024 Shawanda Ramires TOBACCO WAREHOUSE AGENT, TOBACCO WAREHOUSE AGENT-C Attending Provider Active Start: June 05, 2024 Shawanda Ramires TOBACCO WAREHOUSE AGENT, TOBACCO WAREHOUSE AGENT-C Referring Provider Active Start: June 05, 2024 Team Status: Active Member Role/Relationship Status Dates Zebulun Beam VSC, TOBAC[employer] WAREHOUSE AGENT-C Primary Care Provider Active Start: June 05, 2024 Dr. Marco Bartlett MD Attending Provider Active Start: June 05, 2024 Shawanda Ramires TOBACCO WAREHOUSE AGENT, TOBACCO WAREHOUSE AGENT-C Referring Provider Active Start: June 05, 2024 Team Status: Inactive Member Role/Relationship Status Dates Zebulun Beam VSC, TOBAC[employer] WAREHOUSE AGENT-C Primary Care Provider Active Start: June 10, 2024 End: June 10, 2024 Zebulun Beam VSC, TOBAC[employer] WAREHOUSE AGENT-C Attending Provider Active Start: June 10, 2024 End: June 10, 2024 Team Status: Inactive Member Role/Relationship Status Dates Zebulun Beam VSC, TOBAC[employer] WAREHOUSE AGENT-C Primary Care Provider Active Start: June 20, 2024 End: June 20, 2024 Shawanda Ramires TOBACCO WAREHOUSE AGENT, TOBACCO WAREHOUSE AGENT-C Attending Provider Active Start: June 20, 2024 End: June 20, 2024 Shawanda Ramires TOBACCO WAREHOUSE AGENT, TOBACCO WAREHOUSE AGENT-C Referring Provider Active Start: June 20, 2024 End: June 20, 2024 Team Status: Active Member Role/Relationship Status Dates Zebudeb Beam VSC, TOBAC[employer] WAREHOUSE AGENT-C Primary Care Provider Active Start: June 20, 2024 Dr. Ozzy Greco MD Attending Provider Active S tart: June 20, 2024 Shawanda Ramires TOBAC[employer] WAREHOUSE AGENT, TOBACCO WAREHOUSE AGENT-C Referring Provider Active Start: June 20, 2024 Team Status: Inactive Member Role/Relationship Status Dates Naina Da Silva VSC, TOBAC[employer] WAREHOUSE AGENT-C Referring Provider Active Start: July 08, 2024 End: July 08, 2024 Dr. Andreas Oliva DO Attending Provider Active Start: July 08, 2024 End: July 08, 2024 Zebulun Beam VSC, [employer] WAREHOUSE AGENT-C Primary Care Provider Active Start: July 08, 2024 End: July 08, 2024 Team Status: Inactive Member Role/Relationship Status Dates Zebudeb Lim VSC, [employer]BAC[employer] WAREHOUSE AGENT-C Primary Care Provider Active Start: July 24, 2024 End: July 24, 2024 Zebudeb Beam VSC, TOBAC[employer] WAREHOUSE AGENT-C Referring Provider Active Start: July 24, 2024 End: July 24, 2024 Shawanda Ramires TOBACCO WAREHOUSE AGENT, TOBACCO WAREHOUSE AGENT-C Attending Provider Active Start: July 24, 2024 End: July 24, 2024 Team Status: Inactive Member Role/Relationship Status Dates Zebudeb Lim VSC, [employer]BAC[employer] WAREHOUSE AGENT-C Primary Care Provider Active Start: August 07, 2024 End: August 07, 2024 Dr. Andreas Oliva DO Attending Provider Active Start: August 07, 2024 End: August 07, 2024 Dr. Andreas Oliva DO Referring Provider Active Start: August 07, 2024 End: August 07, 2024 Team Status: Active Member Role/Relationship Status Dates Karuna Lim VSC, TOBAC[employer] WAREHOUSE AGENT-C Primary Care Provider Active Start: September 02, 2024 Naina Da Silva VSC, [employer] WAREHOUSE AGENT-C Attending Provider Active Start: September 02, 2024 Team Status: Inactive Member Role/Relationship Status Dates Zebudeb Beam VSC, [employer] WAREHOUSE AGENT-C Primary Care Provider Active Start: September 04, 2024 End: September 04, 2024 Dr. Alexandr Smith DO Emergency Provider Active Start: September 04, 2024 End: September 04, 2024 Team Status: Inactive Member Role/Relationship Status Dates Naina Avinash VSC, [employer] WAREHOUSE AGENT-C Primary Care Provider Activ e Start: May 14, 2024 End: May 15, 2024 Dr. Stan Lin , Attending Provider Active Start: May 14, 2024 End: May 15, 2024 Dr. Stan Lin , Emergency Provider Active Start: May 14, 2024 End: May 15, 2024 Team Status: Inactive Member Role/Relationship Status Dates Karina Guerra TOBACCO WAREHOUSE AGENT, TOBAC[employer] WAREHOUSE AGENT-C Attending Provider Active Start: May 23, 2024 End: May 23, 2024 Karina Guerra TOBACCO WAREHOUSE AGENT, TOBACCO WAREHOUSE AGENT-C Referring Provider Active Start: May 23, 2024 End: May 23, 2024 Zebulun Beam VSC, TOBAC[employer] WAREHOUSE AGENT-C Primary Care Provider Active Start: May 23, 2024 End: May 23, 2024 Team Status: Inactive Member Role/Relationship Status Dates Naina Da Silva VSC, TOBAC[employer] WAREHOUSE AGENT-C Referring Provider Active Start: May 29, 2024 End: May 29, 2024 Shawanda Ramires TOBACCO WAREHOUSE AGENT, TOBACCO WAREHOUSE AGENT-C Attending Provider Active Start: May 29, 2024 End: May 29, 2024 Zebulun Beam VSC, TOBAC[employer] WAREHOUSE AGENT-C Primary Care Provider Active Start: May 29, 2024 End: May 29, 2024 Team Status: Inactive Member Role/Relationship Status Dates Zebulun Beam VSC, TOBAC[employer] WAREHOUSE AGENT-C Primary Care Provider Active Start: June 02, 2024 End: June 02, 2024 Ed Physician Provider Attending Provider Active Start: June 02, 2024 End: June 02, 2024 Ed Physician Provider Emergency Provider Active Start: June 02, 2024 End: June 02, 2024 Team Status: Inactive Member Role/Relationship Status Dates Zebulun Beam VSC, TOBAC[employer] WAREHOUSE AGENT-C Primary Care Provider Active Start: June 03, 2024 End: June 03, 2024 Zebulun Beam VSC, TOBAC[employer] WAREHOUSE AGENT-C Attending Provider Active Start: June 03, 2024 End: June 03, 2024 Zebulun Beam VSC, TOBAC[employer] WAREHOUSE AGENT-C Referring Provider Active Start: June 03, 2024 End: June 03, 2024 Team Status: Inactive Member Role/Relationship Status Dates Zebulun Beam VSC, TOBAC[employer] WAREHOUSE AGENT-C Primary Care Provider Active Start: June 03, 2024 End: June 03, 2024 Dr. Jaylon Galicia MD Attending Provider Active Start: June 03, 2024 End: June 03, 2024 Dr. Jaylon Galicia MD Emergency Provider Active Start: June 03, 2024 End: June 03, 2024 Team Status: Active Member Role/Relationship Status Dates Zebudeb Beam VSC, TOBAC[employer] WAREHOUSE AGENT-C Primary Care Provider Active Start: June 05, 2024 Shawanda Ramires TOBACCO WAREHOUSE AGENT, TOBACCO WAREHOUSE AGENT-C Attending Provider Active Start: June 05, 2024 Shawanda Ramires TOBACCO WAREHOUSE AGENT, TOBACCO WAREHOUSE AGENT-C Referring Provider Active Start: June 05, 2024 Team Status: Active Member Role/Relationship Status Dates Zebudeb Beam VSC, TOBAC[employer] WAREHOUSE AGENT-C Primary Care Provider Active Start: June 05, 2024 Dr. Marco Bartlett MD Attending Provider Active Start: June 05, 2024 Shawanda Ramires TOBACCO WAREHOUSE AGENT, TOBACCO WAREHOUSE AGENT-C Referring Provider Active Start: June 05, 2024 Team Status: Inactive Member Role/Relationship Status Dates Zebulun Beam VSC, TOBACCO WAREHOUSE AGENT-C Primary Care Provider Active Start: June 10, 2024 End: June 10, 2024 Zebulun Beam VSC, TOBAC[employer] WAREHOUSE AGENT-C Attending Provider Active Start: June 10, 2024 End: June 10, 2024 Team Status: Inactive Member Role/Relationship Status Dates Zebudeb Beam VSC, TOBACCO WAREHOUSE AGENT-C Primary Care Provider Active Start: June 20, 2024 End: June 20, 2024 Shawanda Ramires TOBACCO WAREHOUSE AGENT, TOBACCO WAREHOUSE AGENT-C Attending Provider Active Start: June 20, 2024 End: June 20, 2024 Shawanda Ramires TOBACCO WAREHOUSE AGENT, TOBACCO WAREHOUSE AGENT-C Referring Provider Active Start: June 20, 2024 End: June 20, 2024 Team Status: Active Member Role/Relationship Status Dates Zebulun Beam VSC, TOBAC[employer] WAREHOUSE AGENT-C Primary Care Provider Active Start: June 20, 2024 Dr. Ozzy Greco MD Attending Provider Active S tart: June 20, 2024 Shawanda Ramires TOBACCO WAREHOUSE AGENT, TOBACCO WAREHOUSE AGENT-C Referring Provider Active Start: June 20, 2024 Team Status: Inactive Member Role/Relationship Status Dates Naina Da Silva VSC, TOBACCO WAREHOUSE AGENT-C Referring Provider Active Start: July 08, 2024 End: July 08, 2024 Dr. Andreas Oliva DO Attending Provider Active Start: July 08, 2024 End: July 08, 2024 Zebulun Beam VSC, TOBAC[employer] WAREHOUSE AGENT-C Primary Care Provider Active Start: July 08, 2024 End: July 08, 2024 Team Status: Inactive Member Role/Relationship Status Dates Zebulun Beam VSC, TOBAC[employer] WAREHOUSE AGENT-C Primary Care Provider Active Start: July 24, 2024 End: July 24, 2024 Vazquezbudeb Beam VSC, TOBACCO WAREHOUSE AGENT-C Referring Provider Active Start: July 24, 2024 End: July 24, 2024 Shawanda Ramires TOBACCO WAREHOUSE AGENT, TOBACCO WAREHOUSE AGENT-C Attending Provider Active Start: July 24, 2024 End: July 24, 2024 Team Status: Inactive Member Role/Relationship Status Dates Zebueliezern Beam VSC, TOBACCO WAREHOUSE AGENT-C Primary Care Provider Active Start: August 07, 2024 End: August 07, 2024 Dr. Andreas Oliva DO Attending Provider Active Start: August 07, 2024 End: August 07, 2024 Dr. Andreas Oliva DO Referring Provider Active Start: August 07, 2024 End: August 07, 2024 Team Status: Inactive Member Role/Relationship Status Dates Zebudeb Beam VSC, TOBAC[employer] WAREHOUSE AGENT-C Primary Care Provider Active Start: September 02, 2024 End: September 02, 2024 Naina Da Silva VSC, TOBAC[employer] WAREHOUSE AGENT-C Attending Provider Active Start: September 02, 2024 End: September 02, 2024 Team Status: Inactive Member Role/Relationship Status Dates Zebueliezern Beam VSC, TOBAC[employer] WAREHOUSE AGENT-C Primary Care Provider Active Start: September 04, 2024 End: September 04, 2024 Dr. Alexandr Smith DO Emergency Provider Active Start: September 04, 2024 End: September 04, 2024 Bench Molder Apprentice Relationship Specialty Start Date End Date Daniel Olivas [facility] - General 05/08/23 Ernesto Carter DO Family Medicine 06/15/16 Naina Da Silva NP [address] [place] [address] Referring Family Medicine 09/05/23 Team Status: Inactive Member Role/Relationship Status Dates Naina Da Silva VSC, TOBAC[employer] WAREHOUSE AGENT-C Referring Provider Active Start: May 29, 2024 End: May 29, 2024 Shawanda Ramires TOBACCO WAREHOUSE AGENT, TOBACCO WAREHOUSE AGENT-C Attending Provider Active Start: May 29, 2024 End: May 29, 2024 Zebulun Beam VSC, TOBAC[employer] WAREHOUSE AGENT-C Primary Care Provider Active Start: May 29, 2024 End: May 29, 2024 Team Status: Inactive Member Role/Relationship Status Dates Zebulun Beam VSC, TOBAC[employer] WAREHOUSE AGENT-C Primary Care Provider Active Start: June 02, 2024 End: June 02, 2024 Ed Physician Provider Attending Provider Active Start: June 02, 2024 End: June 02, 2024 Ed Physician Provider Emergency Provider Active Start: June 02, 2024 End: June 02, 2024 Team Status: Inactive Member Role/Relationship Status Dates Zebulun Beam VSC, TOBAC[employer] WAREHOUSE AGENT-C Primary Care Provider Active Start: June 03, 2024 End: June 03, 2024 Zebulun Beam VSC, TOBACCO WAREHOUSE AGENT-C Attending Provider Active Start: June 03, 2024 End: June 03, 2024 Zebulun Beam VSC, TOBACCO WAREHOUSE AGENT-C Referring Provider Active Start: June 03, 2024 End: June 03, 2024 Team Status: Inactive Member Role/Relationship Status Dates Zebulun Beam VSC, TOBAC[employer] WAREHOUSE AGENT-C Primary Care Provider Active Start: June 03, 2024 End: June 03, 2024 Dr. Jaylon Galicia MD Attending Provider Active Start: June 03, 2024 End: June 03, 2024 Dr. Jaylon Galicia MD Emergency Provider Active Start: June 03, 2024 End: June 03, 2024 Team Status: Active Member Role/Relationship Status Dates Zebulun Beam VSC, TOBACCO WAREHOUSE AGENT-C Primary Care Provider Active Start: June 05, 2024 Shawanda Ramires TOBACCO WAREHOUSE AGENT, TOBACCO WAREHOUSE AGENT-C Attending Provider Active Start: June 05, 2024 Shawanda Ramires TOBACCO WAREHOUSE AGENT, TOBACCO WAREHOUSE AGENT-C Referring Provider Active Start: June 05, 2024 Team Status: Active Member Role/Relationship Status Dates Zebulun Beam VSC, TOBACCO WAREHOUSE AGENT-C Primary Care Provider Active Start: June 05, 2024 Dr. Marco Bartlett MD Attending Provider Active Start: June 05, 2024 Shawanda Ramires TOBACCO WAREHOUSE AGENT, TOBACCO WAREHOUSE AGENT-C Referring Provider Active Start: June 05, 2024 Team Status: Inactive Member Role/Relationship Status Dates Zebulun Beam VSC, TOBACCO WAREHOUSE AGENT-C Primary Care Provider Active Start: June 10, 2024 End: June 10, 2024 Zebulun Beam VSC, TOBACCO WAREHOUSE AGENT-C Attending Provider Active Start: June 10, 2024 End: June 10, 2024 Team Status: Inactive Member Role/Relationship Status Dates Zebulun Beam VSC, TOBACCO WAREHOUSE AGENT-C Primary Care Provider Active Start: June 20, 2024 End: June 20, 2024 Shawanda Ramires TOBACCO WAREHOUSE AGENT, TOBACCO WAREHOUSE AGENT-C Attending Provider Active Start: June 20, 2024 End: June 20, 2024 Shawanda Ramires TOBACCO WAREHOUSE AGENT, TOBACCO WAREHOUSE AGENT-C Referring Provider Active Start: June 20, 2024 End: June 20, 2024 Team Status: Active Member Role/Relationship Status Dates Zebulun Beam VSC, TOBACCO WAREHOUSE AGENT-C Primary Care Provider Active Start: June 20, 2024 Dr. Ozzy Greco MD Attending Provider Active S tart: June 20, 2024 Shawanda Ramires TOBACCO WAREHOUSE AGENT, TOBACCO WAREHOUSE AGENT-C Referring Provider Active Start: June 20, 2024 Team Status: Inactive Member Role/Relationship Status Dates Naina Da Silva VSC, TOBACCO WAREHOUSE AGENT-C Referring Provider Active Start: July 08, 2024 End: July 08, 2024 Dr. Andreas Oliva DO Attending Provider Active Start: July 08, 2024 End: July 08, 2024 Zebulun Beam VSC, TOBACCO WAREHOUSE AGENT-C Primary Care Provider Active Start: July 08, 2024 End: July 08, 2024 Team Status: Inactive Member Role/Relationship Status Dates Zebulun Beam VSC, TOBACCO WAREHOUSE AGENT-C Primary Care Provider Active Start: July 24, 2024 End: July 24, 2024 Zebulun Beam VSC, TOBACCO WAREHOUSE AGENT-C Referring Provider Active Start: July 24, 2024 End: July 24, 2024 Shawanda Ramires TOBACCO WAREHOUSE AGENT, TOBACCO WAREHOUSE AGENT-C Attending Provider Active Start: July 24, 2024 End: July 24, 2024 Team Status: Inactive Member Role/Relationship Status Dates Zebulun Beam VSC, TOBACCO WAREHOUSE AGENT-C Primary Care Provider Active Start: August 07, 2024 End: August 07, 2024 Dr. Andreas Oliva DO Attending Provider Active Start: August 07, 2024 End: August 07, 2024 Dr. Andreas Oliva DO Referring Provider Active Start: August 07, 2024 End: August 07, 2024 Team Status: Inactive Member Role/Relationship Status Dates Zebulun Beam VSC, TOBACCO WAREHOUSE AGENT-C Primary Care Provider Active Start: September 02, 2024 End: September 02, 2024 Nainakourtney Da Silva VSC, TOBACCO WAREHOUSE AGENT-C Attending Provider Active Start: September 02, 2024 End: September 02, 2024 Team Status: Inactive Member Role/Relationship Status Dates Zebulun Beam VSC, TOBAC[employer] WAREHOUSE AGENT-C Primary Care Provider Active Start: September 04, 2024 End: September 04, 2024 Dr. Alexandr Smith , Attending Provider Active Start: September 04, 2024 End: September 04, 2024 Dr. Alexandr Smith DO Emergency Provider Active Start: September 04, 2024 End: September 04, 2024 Team Status: Inactive Member Role/Relationship Status Dates Zebulun Beam VSC, TOBAC[employer] WAREHOUSE AGENT-C Primary Care Provider Active Start: September 21, 2024 End: September 21, 2024 Rodolfo Das MD Emergency Provider Active Star t: September 21, 2024 End: September 21, 2024 Team Status: Inactive Member Role/Relationship Status Dates Zebulun Beam VSC, TOBAC[employer] WAREHOUSE AGENT-C Primary Care Provider Active Start: September 25, 2024 End: September 25, 2024 Zebulun Beam VSC, TOBAC[employer] WAREHOUSE AGENT-C Referring Provider Active Start: September 25, 2024 End: September 25, 2024 Dr. Andreas Oliva DO Attending Provider Active Start: September 25, 2024 End: September 25, 2024 Team Status: Inactive Member Role/Relationship Status Dates Zebulun Beam VSC, TOBACCO WAREHOUSE AGENT-C Primary Care Provider Active Start: June 02, 2024 End: June 02, 2024 Ed Physician Provider Attending Provider Active Start: June 02, 2024 End: June 02, 2024 Ed Physician Provider Emergency Provider Active Start: June 02, 2024 End: June 02, 2024 Team Status: Inactive Member Role/Relationship Status Dates Zebulun Beam VSC, TOBAC[employer] WAREHOUSE AGENT-C Primary Care Provider Active Start: June 03, 2024 End: June 03, 2024 Zebulun Beam VSC, TOBACCO WAREHOUSE AGENT-C Attending Provider Active Start: June 03, 2024 End: June 03, 2024 Zebulun Beam VSC, TOBACCO WAREHOUSE AGENT-C Referring Provider Active Start: June 03, 2024 End: June 03, 2024 Team Status: Inactive Member Role/Relationship Status Dates Zebulun Beam VSC, TOBAC[employer] WAREHOUSE AGENT-C Primary Care Provider Active Start: June 03, 2024 End: June 03, 2024 Dr. Jaylon Galicia MD Attending Provider Active Start: June 03, 2024 End: June 03, 2024 Dr. Jaylon Galicia MD Emergency Provider Active Start: June 03, 2024 End: June 03, 2024 Team Status: Active Member Role/Relationship Status Dates Zebudeb Beam VSC, TOBACCO WAREHOUSE AGENT-C Primary Care Provider Active Start: June 05, 2024 Shawanda Ramires TOBACCO WAREHOUSE AGENT, TOBACCO WAREHOUSE AGENT-C Attending Provider Active Start: June 05, 2024 Shawanda Ramires TOBACCO WAREHOUSE AGENT, TOBACCO WAREHOUSE AGENT-C Referring Provider Active Start: June 05, 2024 Team Status: Active Member Role/Relationship Status Dates Zebudeb Beam VSC, TOBACCO WAREHOUSE AGENT-C Primary Care Provider Active Start: June 05, 2024 Dr. Marco Bartlett MD Attending Provider Active Start: June 05, 2024 Shawanda Ramires TOBACCO WAREHOUSE AGENT, TOBACCO WAREHOUSE AGENT-C Referring Provider Active Start: June 05, 2024 Team Status: Inactive Member Role/Relationship Status Dates Zebulun Beam VSC, TOBACCO WAREHOUSE AGENT-C Primary Care Provider Active Start: June 10, 2024 End: June 10, 2024 Zebulun Beam VSC, TOBACCO WAREHOUSE AGENT-C Attending Provider Active Start: June 10, 2024 End: June 10, 2024 Team Status: Inactive Member Role/Relationship Status Dates Zebulun Beam VSC, TOBACCO WAREHOUSE AGENT-C Primary Care Provider Active Start: June 20, 2024 End: June 20, 2024 Shawanda Ramires TOBACCO WAREHOUSE AGENT, TOBACCO WAREHOUSE AGENT-C Attending Provider Active Start: June 20, 2024 End: June 20, 2024 Shawanda Ramires TOBACCO WAREHOUSE AGENT, TOBACCO WAREHOUSE AGENT-C Referring Provider Active Start: June 20, 2024 End: June 20, 2024 Team Status: Active Member Role/Relationship Status Dates Zebulun Beam VSC, TOBACCO WAREHOUSE AGENT-C Primary Care Provider Active Start: June 20, 2024 Dr. Ozzy Greco MD Attending Provider Active S tart: June 20, 2024 Shawanda Ramires TOBACCO WAREHOUSE AGENT, TOBACCO WAREHOUSE AGENT-C Referring Provider Active Start: June 20, 2024 Team Status: Inactive Member Role/Relationship Status Dates Naina Da Silva VSC, TOBACCO WAREHOUSE AGENT-C Referring Provider Active Start: July 08, 2024 End: July 08, 2024 Dr. Andreas Oliva DO Attending Provider Active Start: July 08, 2024 End: July 08, 2024 Zebulun Beam VSC, TOBACCO WAREHOUSE AGENT-C Primary Care Provider Active Start: July 08, 2024 End: July 08, 2024 Team Status: Inactive Member Role/Relationship Status Dates Zebulun Beam VSC, TOBACCO WAREHOUSE AGENT-C Primary Care Provider Active Start: July 24, 2024 End: July 24, 2024 Zebulun Beam VSC, TOBACCO WAREHOUSE AGENT-C Referring Provider Active Start: July 24, 2024 End: July 24, 2024 Shawanda Ramires TOBACCO WAREHOUSE AGENT, TOBACCO WAREHOUSE AGENT-C Attending Provider Active Start: July 24, 2024 End: July 24, 2024 Team Status: Inactive Member Role/Relationship Status Dates Zebulun Beam VSC, TOBACCO WAREHOUSE AGENT-C Primary Care Provider Active Start: August 07, 2024 End: August 07, 2024 Dr. Andreas Oliva DO Attending Provider Active Start: August 07, 2024 End: August 07, 2024 Dr. Andreas Oliva DO Referring Provider Active Start: August 07, 2024 End: August 07, 2024 Team Status: Inactive Member Role/Relationship Status Dates Zebulun Beam VSC, TOBACCO WAREHOUSE AGENT-C Primary Care Provider Active Start: September 02, 2024 End: September 02, 2024 Naina Da Silva VSC, TOBACCO WAREHOUSE AGENT-C Attending Provider Active Start: September 02, 2024 End: September 02, 2024 Team Status: Inactive Member Role/Relationship Status Dates Zebulun Beam VSC, TOBACCO WAREHOUSE AGENT-C Primary Care Provider Active Start: September 04, 2024 End: September 04, 2024 Dr. Alexandr Smith DO Attending Provider Active Start: September 04, 2024 End: September 04, 2024 Dr. Alexandr Smith DO Emergency Provider Active Start: September 04, 2024 End: September 04, 2024 Team Status: Inactive Member Role/Relationship Status Dates Zebulun Beam VSC, [employer] WAREHOUSE AGENT-C Primary Care Provider Active Start: September 21, 2024 End: September 21, 2024 Rodolfo Das MD Emergency Provider Active Star t: September 21, 2024 End: September 21, 2024 Team Status: Inactive Member Role/Relationship Status Dates Zebulun Beam VSC, [employer] WAREHOUSE AGENT-C Primary Care Provider Active Start: September 25, 2024 End: September 25, 2024 Zebulun Beam VSC, [employer] WAREHOUSE AGENT-C Referring Provider Active Start: September 25, 2024 End: September 25, 2024 Dr. Andreas Oliva DO Attending Provider Active Start: September 25, 2024 End: September 25, 2024 Team Status: Inactive Member Role/Relationship Status Dates Karuna MCBRIDE, [employer] WAREHOUSE AGENT-C Primary Care Provider Active Start: September 27, 2024 End: September 27, 2024 Dr. Mazin Wilkinson MD Referring Provider Active S tart: September 27, 2024 End: September 27, 2024 Dr. Mazin Wilkinson MD Emergency Provider Active S tart: September 27, 2024 End: September 27, 2024 Bench Molder Apprentice Relationship Specialty Start Date End Date [facility] PCP - General 05/08/23 Ernesto Carter DO Family Medicine 06/15/16 Naina Da Silva NP [address] [place], [place] [id number] Referring Family Medicine 09/05/23 Bench Molder Apprentice Relationship Specialty Start Date End Date [facility] PCP - General 05/08/23 Ernesto Carter DO Family Medicine 06/15/16 Naina Da Silva NP [address] [place], [place] [address] Referring Family Medicine 09/05/23 Bench Molder Apprentice Relationship Specialty Start Date End Date [facility] PCP - General 05/08/23 Ernesto Carter DO Family Medicine 06/15/16 Naina Da Silva NP [address] [place] [address] Referring Family Medicine 09/05/23 Team Status: Inactive Member Role/Relationship Status Dates Naina Avinash VSC, [employer] WAREHOUSE AGENT-C Referring Provider Active Start: July 08, 2024 End: July 08, 2024 Dr. Andreas Oliva DO Attending Provider Active Start: July 08, 2024 End: July 08, 2024 Vazquezbulun Beam VSC, [employer] WAREHOUSE AGENT-C Primary Care Provider Active Start: July 08, 2024 End: July 08, 2024 Team Status: Inactive Member Role/Relationship Status Dates Zebueliezern Beam VSC, [employer] WAREHOUSE AGENT-C Primary Care Provider Active Start: July 24, 2024 End: July 24, 2024 Karuna Beam VSC, [employer] WAREHOUSE AGENT-C Referring Provider Active Start: July 24, 2024 End: July 24, 2024 Shawanda Ramires TOBAC[employer] WAREHOUSE AGENT, TOB[employer] WAREHOUSE AGENT-C Attending Provider Active Start: July 24, 2024 End: July 24, 2024 Team Status: Inactive Member Role/Relationship Status Dates Zebulun Beam VSC, [employer] WAREHOUSE AGENT-C Primary Care Provider Active Start: August 07, 2024 End: August 07, 2024 Dr. Andreas Oliva DO Attending Provider Active Start: August 07, 2024 End: August 07, 2024 Dr. Andreas Oliva DO Referring Provider Active Start: August 07, 2024 End: August 07, 2024 Team Status: Inactive Member Role/Relationship Status Dates Zebudeb Beam VSC, [employer] WAREHOUSE AGENT-C Primary Care Provider Active Start: September 02, 2024 End: September 02, 2024 Naina Da Silva VSC, [employer] WAREHOUSE AGENT-C Attending Provider Active Start: September 02, 2024 End: September 02, 2024 Team Status: Inactive Member Role/Relationship Status Dates Zebulun Beam VSC, [employer] WAREHOUSE AGENT-C Primary Care Provider Active Start: September 04, 2024 End: September 04, 2024 Dr. Alexandr Smith DO Attending Provider Active Start: September 04, 2024 End: September 04, 2024 Dr. Alexandr Smith DO Emergency Provider Active Start: September 04, 2024 End: September 04, 2024 Team Status: Inactive Member Role/Relationship Status Dates Zebulun Beam VSC, [employer] WAREHOUSE AGENT-C Primary Care Provider Active Start: September 21, 2024 End: September 21, 2024 Rodolfo Das MD Attending Provider Active Star t: September 21, 2024 End: September 21, 2024 Rodolfo Das MD Emergency Provider Active Star t: September 21, 2024 End: September 21, 2024 Team Status: Inactive Member Role/Relationship Status Dates Zebulun Beam VSC, [employer] WAREHOUSE AGENT-C Primary Care Provider Active Start: September 25, 2024 End: September 25, 2024 Zebulun Beam VSC, [employer] WAREHOUSE AGENT-C Referring Provider Active Start: September 25, 2024 End: September 25, 2024 Dr. Andreas Oliva DO Attending Provider Active Start: September 25, 2024 End: September 25, 2024 Team Status: Inactive Member Role/Relationship Status Dates Zebulun Beam VSC, [employer] WAREHOUSE AGENT-C Primary Care Provider Active Start: September 27, 2024 End: September 27, 2024 Dr. Mazin Wilkinson MD Attending Provider Active S tart: September 27, 2024 End: September 27, 2024 Dr. Mazin Wilkinson MD Referring Provider Active S tart: September 27, 2024 End: September 27, 2024 Dr. Mazin Wilkinson MD Emergency Provider Active S tart: September 27, 2024 End: September 27, 2024 Team Status: Inactive Member Role/Relationship Status Dates Zebulun Beam VSC, [employer] WAREHOUSE AGENT-C Primary Care Provider Active Start: October 27, 2024 End: October 27, 2024 Zebulun Beam VSC, TOB[employer] WAREHOUSE AGENT-C Referring Provider Active Start: October 27, 2024 End: October 27, 2024 Dr. Andreas Oliva DO Attending Provider Active Start: October 27, 2024 End: October 27, 2024 Team Status: Active Member Role/Relationship Status Dates Zebulun Beam VSC, [employer] WAREHOUSE AGENT-C Primary Care Provider Active Start: October 27, 2024 Zebulun Beam VSC, [employer] WAREHOUSE AGENT-C Referring Provider Active Start: October 27, 2024 Dr. Andreas Oliva DO Attending Provider Active Start: October 27, 2024 Dr. Andreas Oliva DO Other Provider Active St art: October 27, 2024 Team Status: Active Member Role/Relationship Status Dates Zebulun Beam VSC, [employer] WAREHOUSE AGENT-C Primary care physician Active Team Status: Inactive Member Role/Relationship Status Dates Zebulun Beam VSC, [employer] WAREHOUSE AGENT-C Primary care physician Active Start: July 24, 2024 End: July 24, 2024 Zebulun Beam VSC, TOB[employer] WAREHOUSE AGENT-C Referring Provider Active Start: July 24, 2024 End: July 24, 2024 Shawanda Ramires TOBAC[employer] WAREHOUSE AGENT, TOB[employer] WAREHOUSE AGENT-C Attending physician Active Start: July 24, 2024 End: July 24, 2024 Team Status: Inactive Member Role/Relationship Status Dates Zebulun Beam VSC, [employer] WAREHOUSE AGENT-C Primary care physician Active Start: August 07, 2024 End: August 07, 2024 Dr. Andreas Oliva DO Attending physician Active Start: August 07, 2024 End: August 07, 2024 Dr. Andreas Oliva DO Referring Provider Active Start: August 07, 2024 End: August 07, 2024 Team Status: Inactive Member Role/Relationship Status Dates Zebulun Beam VSC, [employer] WAREHOUSE AGENT-C Primary care physician Active Start: September 02, 2024 End: September 02, 2024 Naina Da Silva VSC, [employer] WAREHOUSE AGENT-C Attending physician Active Start: September 02, 2024 End: September 02, 2024 Team Status: Inactive Member Role/Relationship Status Dates Zebulun Beam VSC, [employer] WAREHOUSE AGENT-C Primary care physician Active Start: September 04, 2024 End: September 04, 2024 Dr. Alexandr Smith DO Attending physician Active Start: September 04, 2024 End: September 04, 2024 Dr. Alexandr Smith DO Emergency Department Physician A ctive Start: September 04, 2024 End: September 04, 2024 Team Status: Inactive Member Role/Relationship Status Dates Zebulun Beam VSC, [employer] WAREHOUSE AGENT-C Primary care physician Active Start: September 21, 2024 End: September 21, 2024 Rodolfo Das MD Attending physician Active Sta rt: September 21, 2024 End: September 21, 2024 Rodoflo Das MD Emergency Department Physician Activ e Start: September 21, 2024 End: September 21, 2024 Team Status: Inactive Member Role/Relationship Status Dates Zebulun Beam VSC, [employer] WAREHOUSE AGENT-C Primary care physician Active Start: September 25, 2024 End: September 25, 2024 Zebulun Beam VSC, TOB[employer] WAREHOUSE AGENT-C Referring Provider Active Start: September 25, 2024 End: September 25, 2024 Dr. Andreas Oliva DO Attending physician Active Start: September 25, 2024 End: September 25, 2024 Team Status: Inactive Member Role/Relationship Status Dates Zebulun Beam VSC, [employer] WAREHOUSE AGENT-C Primary care physician Active Start: September 27, 2024 End: September 27, 2024 Dr. Mazin Wilkinson MD Attending physician Active Start: September 27, 2024 End: September 27, 2024 Dr. Mazin Wilkinson MD Referring Provider Active S tart: September 27, 2024 End: September 27, 2024 Dr. Mazin Wilkinson MD Emergency Department Physician Ac tive Start: September 27, 2024 End: September 27, 2024 Team Status: Inactive Member Role/Relationship Status Dates Zebulun Beam VSC, [employer] WAREHOUSE AGENT-C Primary care physician Active Start: October 27, 2024 End: October 27, 2024 Zebulun Beam VSC, [employer] WAREHOUSE AGENT-C Referring Provider Active Start: October 27, 2024 End: October 27, 2024 Dr. Andreas Oliva DO Attending physician Active Start: October 27, 2024 End: October 27, 2024 Team Status: Active Member Role/Relationship Status Dates Zebulun Beam VSC, [employer] WAREHOUSE AGENT-C Primary care physician Active Start: October 27, 2024 Zebulun Beam VSC, [employer] WAREHOUSE AGENT-C Referring Provider Active Start: October 27, 2024 Dr. Andreas Oliva DO Attending physician Active Start: October 27, 2024 Dr. Andreas Oliva DO Nurse Practitioner Active Start: October 27, 2024 Team Status: Active Member Role/Relationship Status Dates Zebulun Beam VSC, [employer] WAREHOUSE AGENT-C Primary care physician Active Start: October 28, 2024 Dr. Garrick Mcgowan MD Attending physician Active Start: October 28, 2024 Yessica Guthrie PA, PA Referring Provider Active Start: October 28, 2024 Team Status: Inactive Member Role/Relationship Status Dates Zebulun Beam VSC, [employer] WAREHOUSE AGENT-C Primary care physician Active Start: October 28, 2024 End: October 28, 2024 Yessica Guthrie PA, PA Attending physician Active Start: October 28, 2024 End: October 28, 2024 Yessica Guthrie PA, PA Referring Provider Active Start: October 28, 2024 End: October 28, 2024 Team Status: Active Member Role/Relationship Status Dates Zebulun Beam VSC, [employer] WAREHOUSE AGENT-C Primary care physician Active Start: November 06, 2024 Yessica Guthrie PA, PA Referring Provider Active Start: November 06, 2024 Yessica Guthrie PA, PA Nurse Practitioner Active Start: November 06, 2024 Dr. Garrick Mcgowan MD Attending physician Active Start: November 06, 2024 Team Status: Active Member Role/Relationship Status Dates Zebulun Beam VSC, [employer] WAREHOUSE AGENT-C Primary care physician Active Start: November 14, 2024 Shawanda Ramires TOBACCO WAREHOUSE AGENT, TOBAC[employer] WAREHOUSE AGENT-C Attending physician Active Start: November 14, 2024 Shawanda Ramires TOBACCO WAREHOUSE AGENT, TOBAC[employer] WAREHOUSE AGENT-C Referring Provider Active Start: November 14, 2024 Team Status: Inactive Member Role/Relationship Status Dates Zebulun Beam VSC, TOB[employer] WAREHOUSE AGENT-C Primary care physician Active Start: November 18, 2024 End: November 18, 2024 Dr. Mau Smallwood MD Emergency Department Physician Active Start: November 18, 2024 End: November 18, 2024 Team Status: Inactive Member Role/Relationship Status Dates Zebulun Beam VSC, [employer] WAREHOUSE AGENT-C Primary care physician Active Start: September 02, 2024 End: September 02, 2024 Naina Da Silva VSC, TOB[employer] WAREHOUSE AGENT-C Attending physician Active Start: September 02, 2024 End: September 02, 2024 Team Status: Inactive Member Role/Relationship Status Dates Zebulun Beam VSC, [employer] WAREHOUSE AGENT-C Primary care physician Active Start: September 04, 2024 End: September 04, 2024 Dr. Alexandr Smith DO Attending physician Active Start: September 04, 2024 End: September 04, 2024 Dr. Alexandr Smith DO Emergency Department Physician A ctive Start: September 04, 2024 End: September 04, 2024 Team Status: Inactive Member Role/Relationship Status Dates Zebulun Beam VSC, [employer] WAREHOUSE AGENT-C Primary care physician Active Start: September 21, 2024 End: September 21, 2024 Rodolfo Das MD Attending physician Active Sta rt: September 21, 2024 End: September 21, 2024 Rodolfo Das MD Emergency Department Physician Activ e Start: September 21, 2024 End: September 21, 2024 Team Status: Inactive Member Role/Relationship Status Dates Zebulun Beam VSC, [employer] WAREHOUSE AGENT-C Primary care physician Active Start: September 25, 2024 End: September 25, 2024 Zebulun Beam VSC, [employer]BAC[employer] WAREHOUSE AGENT-C Referring Provider Active Start: September 25, 2024 End: September 25, 2024 Dr. Andreas Oliva DO Attending physician Active Start: September 25, 2024 End: September 25, 2024 Team Status: Inactive Member Role/Relationship Status Dates Zebulun Beam VSC, [employer] WAREHOUSE AGENT-C Primary care physician Active Start: September 27, 2024 End: September 27, 2024 Dr. Mazin Wilkinson MD Attending physician Active Start: September 27, 2024 End: September 27, 2024 Dr. Mazin Wilkinson MD Referring Provider Active S tart: September 27, 2024 End: September 27, 2024 Dr. Mazin Wilkinson MD Emergency Department Physician Ac tive Start: September 27, 2024 End: September 27, 2024 Team Status: Inactive Member Role/Relationship Status Dates Zebulun Beam VSC, [employer] WAREHOUSE AGENT-C Primary care physician Active Start: October 27, 2024 End: October 27, 2024 Zebulun Beam VSC, [employer] WAREHOUSE AGENT-C Referring Provider Active Start: October 27, 2024 End: October 27, 2024 Dr. Andreas Oliva DO Attending physician Active Start: October 27, 2024 End: October 27, 2024 Team Status: Active Member Role/Relationship Status Dates Zebulun Beam VSC, [employer] WAREHOUSE AGENT-C Primary care physician Active Start: October 27, 2024 Zebulun Beam VSC, [employer] WAREHOUSE AGENT-C Referring Provider Active Start: October 27, 2024 Dr. Andreas Oliva DO Attending physician Active Start: October 27, 2024 Dr. Andreas Oliva DO Nurse Practitioner Active Start: October 27, 2024 Team Status: Active Member Role/Relationship Status Dates Zebulun Beam VSC, [employer] WAREHOUSE AGENT-C Primary care physician Active Start: October 28, 2024 Dr. Garrick Mcgowan MD Attending physician Active Start: October 28, 2024 Yessica Guthrie PA, PA Referring Provider Active Start: October 28, 2024 Team Status: Inactive Member Role/Relationship Status Dates Zebulun Beam VSC, [employer] WAREHOUSE AGENT-C Primary care physician Active Start: October 28, 2024 End: October 28, 2024 Yessica Guthrie PA, PA Attending physician Active Start: October 28, 2024 End: October 28, 2024 Yessica HICKEY, PA Referring Provider Active Start: October 28, 2024 End: October 28, 2024 Team Status: Active Member Role/Relationship Status Dates Zebulun Beam VSC, [employer] WAREHOUSE AGENT-C Primary care physician Active Start: November 06, 2024 Yessica HICKEY, PA Referring Provider Active Start: November 06, 2024 Yessica HICKEY PA Nurse Practitioner Active Start: November 06, 2024 Dr. Garrick Mcgowan MD Attending physician Active Start: November 06, 2024 Team Status: Inactive Member Role/Relationship Status Dates Zebulun Beam VSC, [employer] WAREHOUSE AGENT-C Primary care physician Active Start: November 14, 2024 End: November 14, 2024 Shawanda Ramires TOBACCO WAREHOUSE AGENT, TOBAC[employer] WAREHOUSE AGENT-C Attending physician Active Start: November 14, 2024 End: November 14, 2024 Shawanda Ramires TOBACCO WAREHOUSE AGENT, TOBAC[employer] WAREHOUSE AGENT-C Referring Provider Active Start: November 14, 2024 End: November 14, 2024 Team Status: Inactive Member Role/Relationship Status Dates Zebulun Beam VSC, [employer] WAREHOUSE AGENT-C Primary care physician Active Start: November 18, 2024 End: November 18, 2024 Dr. Mau Smallwood MD Attending physician Active St art: November 18, 2024 End: November 18, 2024 Dr. Mau Smallwood MD Emergency Department Physician Active Start: November 18, 2024 End: November 18, 2024 Team Status: Inactive Member Role/Relationship Status Dates Zebulun Beam VSC, [employer] WAREHOUSE AGENT-C Primary care physician Active Start: November 20, 2024 End: November 20, 2024 Zebulun Beam VSC, [employer] WAREHOUSE AGENT-C Attending physician Active Start: November 20, 2024 End: November 20, 2024 Zebulun Beam VSC, [employer] WAREHOUSE AGENT-C Referring Provider Active Start: November 20, 2024 End: November 20, 2024 Team Status: Inactive Member Role/Relationship Status Dates Zebulun Beam VSC, [employer] WAREHOUSE AGENT-C Primary care physician Active Start: November 28, 2024 End: November 28, 2024 Zebulun Beam VSC, [employer] WAREHOUSE AGENT-C Referring Provider Active Start: November 28, 2024 End: November 28, 2024 Shawanda Ramires NP, [employer] WAREHOUSE AGENT-C Attending physician Active Start: November 28, 2024 End: November 28, 2024 Team Status: Active Member Role/Relationship Status Dates Zebulun Beam VSC, [employer] WAREHOUSE AGENT-C Primary care physician Active Start: November 28, 2024 Shawanda Ramires TOBACCO WAREHOUSE AGENT, TOBACCO WAREHOUSE AGENT-C Attending physician Active Start: November 28, 2024 Shawanda Ramires TOBACCO WAREHOUSE AGENT, TOBACCO WAREHOUSE AGENT-C Referring Provider Active Start: November 28, 2024 Team Status: Inactive Member Role/Relationship Status Dates Zebulun Beam VSC, [employer] WAREHOUSE AGENT-C Primary care physician Active Start: December 09, 2024 End: December 09, 2024 Vazquezbuluadalgisa Beam VSC, [employer] WAREHOUSE AGENT-C Referring Provider Active Start: December 09, 2024 End: December 09, 2024 Zeus Miller TOBACCO WAREHOUSE AGENT, TOBAC[employer] WAREHOUSE AGENT-C Attending physician Active Start: December 09, 2024 End: December 09, 2024 Team Status: Active Member Role/Relationship Status Dates Karuna Lim VSC, [employer] W[employer]HOUSE AGENT-C Primary care physician Active Start: December 09, 2024 Zeus Miller TOBACCO WAREHOUSE AGENT, TOBACCO WAREHOUSE AGENT-C Attending physician Active Start: December 09, 2024 Zeus Miller TOBACCO WAREHOUSE AGENT, TOBACCO WAREHOUSE AGENT-C Referring Provider Active Start: December 09, 2024 Team Status: Inactive Member Role/Relationship Status Dates Karuna Lim VSC, [employer] WAREHOUSE AGENT-C Primary care physician Active Start: November 28, 2024 End: November 28, 2024 Shawanda Ramires TOBACCO WAREHOUSE AGENT, TOBACCO WAREHOUSE AGENT-C Attending physician Active Start: November 28, 2024 End: November 28, 2024 Shawanda Ramires TOBACCO WAREHOUSE AGENT, TOBACCO WAREHOUSE AGENT-C Referring Provider Active Start: November 28, 2024 End: November 28, 2024 Team Status: Inactive Member Role/Relationship Status Dates Karuna Beam VSC, [employer] WAREHOUSE AGENT-C Primary care physician Active Start: December 09, 2024 End: December 09, 2024 Zeus Miller NP, [employer] WAREHOUSE AGENT-C Attending physician Active Start: December 09, 2024 End: December 09, 2024 Zeus Miller TOBACCO WAREHOUSE AGENT, TOBACCO WAREHOUSE AGENT-C Referring Provider Active Start: December 09, 2024 End: December 09, 2024 Reason for Visit (unrecogniz ed section [...] (MNT) MEDICAL NUTRITION ASSMT&IVNTJ INDIV EACH 15 MT MEDICAL NUTRITION ASSMT&IVNTJ INDIV EACH 15 MT MEDICAL NUTRITION ASSMT&IVNTJ INDIV EACH 15 MT MEDICAL NUTRITION ASSMT&IVNTJ INDIV EACH 15 MT Jey Johnson MD [address] [place] [address] Referral ID Status Reason Start Date Expiration Date V isits Requested Visits Authorized [id number] Closed PCP Requested Referral 01/08/2024 01/07/2025 1 1 Reason Comments Diarrhea vomiting, cough, chi lls and fever x 4 days Reason Comments Established Patient Follow-Up Reason Comments Medical Weight Management Specialty Diagnoses / Procedures Referred By Contac t Referred To Contact Diagnoses Obesity, Class III, BMI 40-49.9 (morbid obesity) (HCC) PCOS (polycystic ovarian syndrome) Procedures ENDOCRINE MEDICAL WEIGHT MANAGEMENT OFFICE/OUTPATIENT [facility] 60 MINUTES Jey Johnson MD [address] [place] [address] Phone: tel: fax: Referral ID Status Reason Start Date Expiration Date V isits Requested Visits Authorized [id number] Closed PCP Requested Referral 04/15/2024 04/15/2025 1 [...] BE BASED ON THE PRIMARY CLINICAL RECORDS. OUTSIDE THE BOX MARKETING [facility]. provides no warranty or guarantee of the accuracy or completeness of information in this document.
--- NOTE | 2025-01-23 13:57 | STRESSREP ---
Stress Test Report Pharmacologic myocardial perfusion stress test. 29-year-old lady with a history of atypical chest pain. Resting EKG demonstrates normal sinus rhythm with a rate of 98 bpm. Resting blood pressure is 152/96 mmHg. 0.4 mg of regadenoson was infused per usual protocol followed by rapid intravenous saline flush injection. Continuous EKG monitoring was performed. The maximum heart rate was 136 bpm which was 70% of max impacted heart rate the maximum workload was 1 metabolic equivalent. At rest there were no ST or T wave changes noted to suggest ischemia and at peak infusion nonspecific ST changes were noted which did not meet the criteria for ischemia. No clinical angina is noted. The final blood pressure was 172/108 mmHg. Myocardial perfusion protocol. 15 mCi of technetium 99m sestamibi was injected at rest. 0.4 mg of regadenoson was infused per usual protocol. At peak infusion 45 mCi of technetium 99m sestamibi was injected stress images were obtained stress and rest images were reconstructed and compared in the short axis vertical long and horizontal long axis. Gated images were also obtained. Perfusion SPECT analysis: Review of the stress images demonstrate normal uptake of tracer noted in all areas of the myocardium. There is some reduction of perfusion of the anterior wall. The resting images similar demonstrated normal uptake of tracer noted in all areas of the myocardium. Anterior wall perfusion reduction is noted. The above is likely secondary to breast attenuation artifact. Gated SPECT analysis: The gated ejection fraction is 36%. Conclusion: Probably normal pharmacologic myocardial perfusion stress test. Reduced ejection fraction.
== END | disposition home or self-care (01) ==
LOC: CVS 06:21
PROVIDERS: Referring Provider Nurse Practitioner Gerontology; Visit Provider Nurse Practitioner Gerontology
DX: R09.89 Other specified symptoms and signs involving the circulatory and respiratory systems (principal); R03.0 Elevated blood-pressure reading, without diagnosis of hypertension; R07.9 Chest pain, unspecified; R06.02 Shortness of breath; R53.83 Other fatigue
CPT/HCPCS: 78452; 93017; 93788; A9500; A4216; J2785

== ENCOUNTER 2025-01-27 13:55 | Emergency (ER) | payer MEDICAID, SELFPAY ==
[2025-01-27 13:58] VITALS: BP 161/98; PULSE 107; RESP 18; TEMP 36.5; O2SAT 98; BMI 47.8
--- NOTE | 2025-01-27 14:51 | EKG12_ITS ---
Test Reason : CP Blood Pressure : */* mmHG Vent. Rate : 86 BPM Atrial Rate : 86 BPM P-R Int : 158 ms QRS Dur : 84 ms QT Int : 376 ms P-R-T Axes : 45 0 -1 degrees QTcB Int : 449 ms Normal sinus rhythm Minimal voltage criteria for LVH, may be normal variant ( R in aVL ) Nonspecific T wave abnormality Abnormal ECG Confirmed by JACK VARGAS, MARILUZ ([id number]), book or script editor NAILA VILLANUEVA ([id number]) on 02/02/2025 6:16:19 AM Referred By: Confirmed By: MARILUZ SANTIAGO MD
--- NOTE | 2025-01-27 14:52 | ED.VIS.CHEST ---
HPI History of Present Illness Chief Complaint: Chest Pain Informant: patient Onset/Context/Timing Onset: Days Activity at onset: gradual Timing: Intermittent Quality: Positive for Pain and Sharp Location: Left Parasternal Current Severity: Mild Maximum Severity: Mild Worsened By: Movement of Torso Relieved By: Nothing Associated Symptoms: Negative for Nausea, Vomiting, Diaphoresis, Dyspnea, Cough, Fever, Lightheadedness, Acid Reflux or Palpitations Narrative Narrative: 29-year-old female history diabetes, anxiety, bipolar, autism and polycystic ovarian syndrome. For the last several days has had elevated blood pressure saw her test and research reactor operator yesterday they adjusted and started on a new blood pressure medication. Also she has been having intermittent chest pain the last several days. States it is left-sided. Worse with movement of her chest. No history of DVT or PE no recent travel surgery mobilization. No calf pain or swelling. No hemoptysis. No cardiac history. No prior cardiac surgeries. She denies any fever or chills. She denies any exertional chest pain. No new cough. Prior Similar Symptoms: Yes Recent Illness/Hospitalization: No CVD Risk Factors: Positive for Hypertension and Diabetes; Negative for Smoking PE Risk Factors: Negative for Recent Travel/Surgery, Recent Immobilization, Prior DVT or PE or OCP + Smoking + >/=35 TAD Risk Factors: Negative for Marfan's Syndrome [facility] Medical History Dietary restriction Shortness of breath on exertion History of pain when walking Alcohol use Picking own skin Low iron Fatty liver Gastroparesis Cardiology follow-up encounter Obesity Depression Diabetes GERD (gastroesophageal reflux disease) Irregular heart beat Cellulitis History of echocardiogram Wears glasses Bipolar disorder Anxiety Arthritis Back pain Migraine headache Syncope Non-smoker Bipolar 1 disorder PCOS (polycystic ovarian syndrome) IBS (irritable bowel syndrome) Autism Home Medications ?Medication ?Instructions ?Recorded ?Last Taken ?Type lithium carbonate 300 mg capsule 300 mg PO DAILY Bipolar 04/05/17 09/27/24 History ferrous sulfate 325 mg (65 mg 325 mg PO QODAY supplement 01/24/22 10/24/24 History iron) tablet (FeroSul) lithium carbonate 600 mg capsule 600 mg PO QHS mental health 01/24/22 09/26/24 History aripiprazole lauroxil 441 mg/1.6 441 mg IM .Q28 DAYS mental health 12/18/22 09/24/24 History mL suspension, ext.rel. IM syringe ([place]) cholecalciferol (vitamin D3) 25 25 mcg PO DAILY vitamin 12/18/22 09/26/24 History mcg (1,000 unit) tablet (Vitamin D3) imipramine HCl 25 mg tablet 25 mg PO DAILY mental health 12/18/22 09/26/24 History pantoprazole 40 mg tablet,delayed 40 mg PO QHS 06/03/23 09/26/24 History release simvastatin 20 mg tablet 20 mg PO QHS 06/03/23 09/26/24 History diphenoxylate-atropine 2.5 1 tab PO BID PRN diarrhea #30 tabs 10/29/23 Unknown Rx mg-0.025 mg tablet (Lomotil) dicyclomine 20 mg tablet 20 mg PO TID PRN abdominal pain 05/08/24 09/23/24 Rx #30 tabs metoclopramide HCl 10 mg tablet 10 mg PO Q6H PRN nausea and 05/08/24 09/26/24 Rx (Reglan) vomiting #20 tabs miscellaneous medical supply #1 ea 05/29/24 Unknown Rx cyanocobalamin (vitamin B-12) 1,000 mcg sublingual DAILY 09/04/24 09/26/24 History 1,000 mcg sublingual tablet rizatriptan 10 mg tablet 10 mg PO Q2H PRN migraine headache 09/04/24 Unknown History spironolactone 25 mg tablet 25 mg PO QDAY #30 tabs 11/07/24 Unknown Rx atogepant 60 mg tablet (Qulipta) 60 mg PO QDAY 11/28/24 Unknown History diphenoxylate-atropine 2.5 1 tab PO TID PRN 11/28/24 Unknown History mg-0.025 mg tablet polyethylene glycol 3350 17 4 g PO ONCE PRN constipation 11/28/24 Unknown History gram/dose oral powder (Miralax) Grab Bars #1 ea 12/05/24 Unknown Rx norgestimate 0.25 mg-ethinyl 1 tab PO DAILY #84 tabs 12/09/24 Unknown Rx estradiol 0.035 mg tablet ([place]) amlodipine 2.5 mg tablet 2.5 mg PO BID 01/19/25 Unknown History carvedilol 6.25 mg tablet 6.25 mg PO BID #60 tabs 01/26/25 Unknown Rx Allergy/AdvReac Type Severity Reaction Status Date / Time ondansetron (From Zofran (as Allergy Anaphylaxis Verified 01/27/25 14:00 hydrochloride)) pollen extracts Allergy Hives Verified 01/27/25 14:00 metformin AdvReac Mild Nausea/Vom/ Verified 01/27/25 14:00 Diarrhea escitalopram (From Lexapro) AdvReac Other Verified 01/27/25 14:00 lactase (From Dairy Aid) AdvReac Upset Verified 01/27/25 14:00 Stomach Family History Mother Uterine cancer Other Asthma Depression Diabetes GERD (gastroesophageal reflux disease) Heart disease Hyperlipidemia Hypertension Surgical History History of colonoscopy History of esophagogastroduodenoscopy (EGD) History of tonsillectomy and adenoidectomy H/O knee surgery H/O spinal fusion Social History household members: none housing: apartment current occupational status: unemployed history of recent travel: No Smoking Status: Never smoker alcohol intake: current alcohol intake frequency: holidays/special occasions only substance use type: does not use caffeine: Yes Type: carbonated beverages what type of physical activity do you participate in: walking frequency: daily seatbelt use: always do you feel safe at home: Yes additional social history: single ROS ROS ED ROS Narrative Chest pain Constitutional Constitutional ED: Denies chills or fever(s) Eyes Eyes: Reports none ENT ENT ED: Denies ear pain Cardiovascular Cardiovascular: Reports as per HPI and chest pain Respiratory/Chest Respiratory/Chest: Denies cough, dyspnea or dyspnea on exertion Gastrointestinal Gastrointestinal: Denies abdominal pain Genitourinary Genitourinary ED: Denies dysuria or hematuria Musculoskeletal Musculoskeletal: Denies arthralgias Integumentary Denies abscess Neurologic Neurologic: Denies headache(s) Psychiatric Psychiatric: Reports anxiety; Denies depression Endocrine Endocrinology: Denies cold intolerance Hematologic/Lymphatic Hematologic/Lymphatic: Denies easy bleeding, easy bruising or lymphadenopathy Allergic/Immunologic Allergic/Immunologic ED: Denies mouth swelling, tongue swelling or urticaria EXAM Physical Exam Narrative Exam Narrative: 29-year-old female vital signs are stable afebrile does not look septic toxic no acute distress. Clinically looks well. Initial blood pressure 161/98 afebrile. Pulse ox 90% on room air no signs of hypoxia. H EENT exam pupils round react to light. Moist mucous membranes. Neck nontender no JVD. No lymphadenopathy. Back nontender. Lungs clear to auscultation bilaterally. Heart regular rhythm rate about 100 no murmur. Chest wall ribs reproducible left-sided chest wall discomfort to palpation. No ecchymosis or bruising no subcu air or crepitance. No signs of trauma. Abdomen soft nontender normal bowel sounds without peritoneal signs. Moving all 4 extremities. 5-5 packer denture strength. Equal symmetric radial pulse. Dorsi plantarflexion intact. Calves nontender without edema or cords. Neurologically she is awake alert. Answering questions following commands. Benign exam Const Vital Signs: 01/27/25 13:58 01/27/25 14:56 Temperature 97.7 F L Temperature Source Temporal Pulse Rate 107 H Respiratory Rate 18 Blood Pressure 161/98 H Blood Pressure Mean 119 Pulse Ox 98 Oxygen Delivery Method Room Air Room Air MDM MDM MDM Narrative Medical decision making narrative: 29-year-old female atypical chest pain that is somewhat reproducible. May be musculoskeletal chest wall pain. She has had no history of trauma. She undergo cardiac workup which I do not think this is her heart specifically. Other than her body habitus she has no specific risk factors for DVT or PE and no prior history. No recent travel surgery or immobilization. Repeat exam at 4:05 PM patient doing well. Abdomen benign. Reproducible chest wall discomfort but the chest wall is normal in appearance. No redness no discoloration no bruising. I think this is musculoskeletal chest wall pain patient be discharged home Motrin Tylenol for pain. Outpatient follow-up. History & Record Review Discussion w/independent historian: Patient Additional record(s) reviewed:: Prior outpatient record, Prior ED visit and Prior labs Lab Data Attestation: I reviewed the patient's lab results. Lab results narrative: CBC shows white count 9 H&H 11.9 and 37. Platelets 395. D-dimer is unremarkable at 0.32. Initial troponin less than 6. Electrolytes show a gap at 9. BUN and creatinine eleven 0.5. Glucose 152. Chest x-ray unremarkable. Labs: Laboratory Results - last 24 hr 12/09/25 14:45 WBC 9.3 RBC 4.38 Hgb 11.9 L Hct 37.0 MCV 84.5 MCH 27.2 MCHC 32.2 RDW Std Deviation 41.8 RDW Coeff of Delmy 13.4 Plt Count 395 MPV 9.2 Immature Gran % (Auto) 0.300 Neut % (Auto) 71.9 H Lymph % (Auto) 19.9 [place] % (Auto) 6.5 Eos % (Auto) 0.9 Baso % (Auto) 0.5 Absolute Neuts (auto) 6.7 Absolute Lymphs (auto) 1.85 Nucleated RBC % 0 D-Dimer Quant (PE/DVT) 0.32 Sodium 138 Potassium 3.4 Chloride 104 Carbon Dioxide 24.7 Anion Gap 9 BUN 11 Creatinine 0.55 L Estim Creat Clear Calc 214.78 Est GFR (MDRD) Non-Af 128 BUN/Creatinine Ratio 20.7 H Glucose 152 H Calcium 9.1 Troponin T High Sens < 6 Radiography Chest X-Ray - ED: 2 View, Read by ED Physician, Normal, Heart, Lungs, Mediastinum, Bony Structures, No Acute Disease and Chronic Changes Diagnostic Testing: Chest x-ray, 2 views, AP and lateral, normal cardiac silhouette. Normal lung rachel. No acute effusion. No infiltrate. Prior Lovett rods of the thoracic spine. Rhythm Strip Rhythm Strip: Sinus Rhythm Rate: 86 Ectopy: None EKG Initial EKG: Attestation: I personally reviewed and interpreted this EKG as follows: Interpretation: Sinus Rhythm and No Acute Injury Pattern Comments: Normal sinus rhythm rate 86 no acute signs of MA or ischemia. No S1Q3T3. Discharge Plan Triage Chief Complaint: Chest Pain Other Complaint: Hypertension ED Provider: Mazin Wilkinson Dx/Rx/DC Orders Clinical Impression: Chest pain, Acute chest wall pain, History of diabetes mellitus Instructions: ED Chest Pain, Uncertain Cause, ED Chest Wall Pain, Costochondritis Prescriptions: No Action (DME) miscellaneous medical supply Misc See Rx Instructions .Route Qty: 1 0RF Rx Instructions: As directed carvedilol 6.25 mg tablet 6.25 mg PO BID Qty: 60 11RF Rx Instructions: must administer with a meal/food norgestimate-ethinyl estradiol [[place]] 0.25-0.035 mg tablet 1 tab PO DAILY Qty: 84 4RF polyethylene glycol 3350 [Miralax] 17 gram/dose powder 4 g PO ONCE PRN (Reason: constipation) Rx Instructions: Mix entire bottle into 64oz of clear liquid for colonoscopy prep Qulipta 60 mg tablet 60 mg PO QDAY diphenoxylate-atropine 2.5-0.025 mg tablet 1 tab PO TID PRN lithium carbonate 300 MG capsule 300 mg PO DAILY lithium carbonate 600 mg Capsule 600 mg PO QHS ferrous sulfate [FeroSul] 325 mg (65 mg iron) tablet 325 mg PO QODAY imipramine HCl 25 mg tablet 25 mg PO DAILY cholecalciferol (vitamin D3) [Vitamin D3] 25 mcg (1,000 unit) tablet 25 mcg PO DAILY [place] 441 mg/1.6 mL suspension,extended rel syring 441 mg IM .Q28 DAYS Rx Instructions: 441 mg intramuscularly Q28D; due first week of september metoclopramide HCl [Reglan] 10 mg tablet 10 mg PO Q6H PRN (Reason: nausea and vomiting) Qty: 20 0RF dicyclomine 20 mg tablet 20 mg PO TID PRN (Reason: abdominal pain) Qty: 30 0RF cyanocobalamin (vitamin B-12) 1,000 mcg tablet, sublingual 1,000 mcg sublingual DAILY rizatriptan 10 mg tablet 10 mg PO Q2H PRN (Reason: migraine headache) simvastatin 20 mg tablet 20 mg PO QHS pantoprazole 40 mg tablet,delayed release (DR/EC) 40 mg PO QHS diphenoxylate-atropine [Lomotil] 2.5-0.025 mg tablet 1 tab PO BID PRN (Reason: diarrhea) Qty: 30 2RF spironolactone 25 mg tablet 25 mg PO QDAY Qty: 30 11RF (DME) Grab Bars See Rx Instructions .Route .MEDSUPPLY Qty: 1 0RF Rx Instructions: Around patient toilet and in bathroom for patient's safety due to frequent passing out episodes related to cardiac condition amlodipine 2.5 mg tablet 2.5 mg PO BID Primary Care Provider: Karuna Lim Referrals: Karuna Lim, TELECASTING TECHNICIAN-C [Primary Care Provider, Family Practice] - 3-5 Days if not improving Activity Restrictions/Additional Instructions: Your labs, EKG and chest x-ray were unremarkable. I think this is secondary to chest wall pain. Ice to your chest wall. Motrin for pain and inflammation Tylenol for pain. Follow-up if not improving. Return if worse. Print Language: Nauruan Disposition Disposition: Home, Self Care
[2025-01-27 15:04] LABS: Hematocrit 37.0 % (37-47); Hemoglobin 11.9 g/dL (12.0-15.0); Immature Granulocytes Count 0.030 X10^3/uL (0.0-0.0); Mean Corp Hgb Conc 32.2 g/dL (32-36); Mean Corpuscular Volume 84.5 fL (81-99); Mean Platelet Vol. 9.2 fl (6.2-12.0); NRBC Flagged by Analyzer 0 % (0-5); Platelet Count 395 K/mm3 (150-450); RBC Distribution Width CV 13.4 % (11.6-14.6); RBC Distribution Width SD 41.8 fl (35.1-43.9); Red Blood Count 4.38 M/mm3 (4.2-5.4); White Blood Count 9.3 K/mm3 (4.4-11.0)
--- NOTE | 2025-01-27 15:22 | RAD_ITS ---
PROCEDURE: CHEST PA AND LATERAL 01/27/2025 REASON FOR EXAM: CHEST PAIN TECHNIQUE: Procedure Code: RADCXR Modality: DX Procedure: CHEST PA AND LATERAL COMPARISON: 05/14/2024. FINDINGS: Interval appearance of mild bilateral basilar atelectatic pulmonary changes. Unremarkable thoracic fusion metallic hardware. There is no demonstrated pleural abnormality. Normal heart and pericardium. Normal mediastinum and daysi. Normal visualized pulmonary arteries. Normal visualized aortic arch and descending thoracic aorta. Normal visualized thoracic spine. Normal visualized ribs, clavicles, and shoulders. There is no demonstrated abnormality of the visualized soft tissue structures of the upper abdomen. RAD/Chest PA and Lateral IMPRESSION: Interval appearance of mild bilateral basilar atelectatic pulmonary changes. Reading [facility]
[2025-01-27 15:46] LABS: D-Dimer Quantitative (DVT/PE) 0.32 FEU/ug/m (0.27-0.49)
[2025-01-27 15:52] LABS: Anion Gap 9 (5-15); BUN 11 mg/dL (4-19); BUN/Creat Ratio 20.7 RATIO (10-20); Calcium,Total 9.1 mg/dL (7.6-11.0); Carbon Dioxide 24.7 mmol/L (21.0-32.0); Chloride 104 mmol/L (98-108); Estimated Creatinine Clearance 214.78 ml/min (50-250); Glucose 152 mg/dL (70-99); Potassium 3.4 mmol/L (3.3-5.1); Troponin T High Sensitivity < 6 ng/L (<=14)
[2025-01-27 15:56] VITALS: BP 131/75; PULSE 87; RESP 19; TEMP 36.6; O2SAT 95
== END 2025-01-27 16:18 | disposition home or self-care (01) ==
PROVIDERS: Emergency Provider Emergency Medicine; Visit Provider Emergency Medicine
DX: R07.89 Other chest pain (principal); F31.9 Bipolar disorder, unspecified; E11.43 Type 2 diabetes mellitus with diabetic autonomic (poly)neuropathy; F84.0 Autistic disorder
CPT/HCPCS: 71046; 80048; 84484; 85025; 85379; 93005; 99285; A4216

== ENCOUNTER 2025-02-03 09:06 | Outpatient (RCR) | payer MEDICAID, SELFPAY | END 2025-02-18 23:59 | LOC: NS 09:06 | DX: Z71.3 Dietary counseling and surveillance (principal); E11.9 Type 2 diabetes mellitus without complications | CPT/HCPCS: 97803 ==

== ENCOUNTER → 2025-02-11 | Outpatient (CLI) | payer MEDICAID, SELFPAY ==
--- NOTE | 2025-02-11 09:49 | ECHOCS_ITS ---
Reason For Study Reason For Study: Decreased EF Procedure This was a 2D Doppler, Color Flow transthoracic echocardiogram. The patient is in sinus rhythm. The study was technically difficult. Contrast injection was performed. Exam performed in department. Left Ventricle Mild concentric left ventricular hypertrophy. Normal LV size. Cannot rule out anterior noncompaction. Inferior hypokinesis. Overall estimated LVEF 60%. Stage I diastolic dysfunction. Right Ventricle Normal right ventricle. Atria The left and right atria are normal. Bubble contrast study is negative for PFO/ASD. Mitral Valve The mitral valve is structurally normal. No prolapse or stenosis seen. Tricuspid Valve Trivial tricuspid valve insufficiency. Normal pulmonary artery pressure. Aortic Valve Trisinus/trileaflet aortic valve. Aortic valve mean peak gradient 15 mmHg. However leaflet excursion appears normal. Increased gradients likely on account of tachycardia. Pulmonic Valve The pulmonic valve is not well visualized. Trivial pulmonic valve insufficiency. Great Vessels Normal sized aortic root. Pericardium/Pleural No pericardial effusion. Medication 22 gauge I.V. with prn adaptor inserted into right arm. Diluted definity 2ml given slow IV push to enhance endocardial definition. Performed a rapid injection of agitated mix of 9 cc saline and 1cc air to assess for atrial septal defect. MMode/2D Measurements & Calculations LVIDd: 5.2 cm IVSd: 1.3 cm LVOT diam: 2.0 cm LVIDs: 3.7 cm LVPWd: 1.2 cm RVDd: 3.3 cm FS: 29.7 % LVOT area: 3.0 cm2 Ao root diam: 2.7 cm LAV(MOD-bp): 55.0 ml LVAd ap4: 35.0 cm2 LAV(MOD-bp) Indexed: 23.4 ml/m2 LVLd ap4: 8.4 cm LAV(MOD-sp2): 54.9 ml EDV(MOD-sp4): 123.2 ml LAV(MOD-sp4): 49.9 ml EDV(sp4-el): 123.2 ml LVAs ap4: 22.7 cm2 LVLs ap4: 7.5 cm ESV(MOD-sp4): 58.2 ml ESV(sp4-el): 58.4 ml EF(MOD-sp4): 52.8 % EF(sp4-el): 52.6 % SV(MOD-sp4): 65.0 ml SV(sp4-el): 64.8 ml LA A4 area: 19.1 cm2 SI(MOD-sp4): 27.6 ml/m2 LA dimension(2D): 3.5 cm RA A4 area: 17.6 cm2 Time Measurements MV dec time: 0.18 sec Doppler Measurements & Calculations MV E max elio: 127.8 cm/sec Lat Peak E' Elio: 25.7 cm/sec Med Peak E' Elio: 13.1 cm/sec MV A max elio: 79.3 cm/sec E/E' lat: 5.0 E/E' med: 9.7 MV E/A: 1.6 MV V2 max: 137.6 cm/sec MV P1/2t max elio: 137.8 cm/sec Ao V2 max: 245.5 cm/sec MV max P.6 mmHg MV P1/2t: 54.2 msec Ao max P.1 mmHg MV V2 mean: 72.1 cm/sec MV dec slope: 744.8 cm/sec2 Ao V2 mean: 190.0 cm/sec MV mean P.5 mmHg MVA(P1/2t): 4.1 cm2 Ao mean P.2 mmHg MV V2 VTI: 26.0 cm Ao V2 VTI: 42.6 cm MVA(VTI): 4.0 cm2 AV (velocity ratio): 0.81 PETE(I,D): 2.4 cm2 PETE(V,D): 2.0 cm2 LV V1 max: 166.6 cm/sec SV(LVOT): 103.2 ml PA V2 max: 188.0 cm/sec LV V1 max P.1 mmHg PA V2 mean: 142.4 cm/sec LV V1 mean P.5 mmHg LV V1 mean: 118.2 cm/sec LV V1 VTI: 34.3 cm TR max elio: 203.6 cm/sec TR max P.6 mmHg ECHO/Echo Complete W/ Contrast Interpretation Summary The study was technically difficult. Mild concentric left ventricular hypertrophy. Cannot rule out anterior noncompaction. Inferior hypokinesis. Overall estimated LVEF 60%. Stage I diastolic dysfunction. Bubble contrast study is negative for PFO/ASD. Aortic valve mean peak gradient 15 mmHg. However leaflet excursion appears norm al. Increased gradients likely on account of tachycardia/increased flow. Recommend cardiac MRI for further evaluation of the left ventricle and aortic v alve. Ordering Physician: Shawanda Ramires Referring Physician: Shawanda Ramires Performed By: Jasper Wright RCS
--- OUTSIDE RECORDS SUMMARY | 2025-02-11 10:12 | XMS RPT_ITS | CCD ---
Author Organization [facility] Team Providers Care Sweat Box Attendant Name Role Phone ORLANDO LEES SR Unavailable Unavailable ERNESTO CARTER Unavailable Unavailable MARY JANE, ERNESTO Unavailable Unavailable GOYO, DELMI Unavailable Unavailable GOYO, DELMI Unavailable Unavailable MARY JANE, ERNESTO Unavailable Unavailable SOMMER LECHUGA Unavailable Unavailable MARY JANE, ERNESTO Unavailable Unavailable MARY JANE, ERNESTO Unavailable Unavailable Mhoan Pacheco Unavailable Unavailable Mary Jane, Ernesto Unavailable Unavailable Mary Jane, Ernesto Unavailable Unavailable VANI MANCILLA Primary Care Physician [facility], Daniel Tierney Primary Care Pro vider [facility], Daniel Tierney Referring Provid er Melbourne WEDDING CAKE DESIGNER, HORTENSIA Le Attending Provider Ernesto Carter DO Unavailable Unavailab Crys Barraza Primary Care Provider Ernesto Carter DO Unavailable Unavailab Crys Barraza Primary Care Provider [facility], Daniel Teirney Primary Care Pro vider [facility], Daniel Tierney Referring Provid er Paul WEDDING CAKE DESIGNER, HORTENSIA Le Attending Provider [facility], Daniel Tierney Primary Care Pro vider [facility], Daniel Teirney Referring Provid er Paul WEDDING CAKE DESIGNER, HORTENSIA Le Attending Provider [facility], Daniel Tierney Primary Care Pro vider [facility], [place] Abnerman Referring Provid er Friend, Dr. Johns Attending Provider [phone] Paul WEDDING CAKE DESIGNER, WEDDING CAKE DESIGNER-Kimi Le Attending Provider [phone] [facility], [place] Primary Care Pro vider Medical Clar[place], [place] Kelsy Referring Provid er Friend, Dr. Johns Attending Provider [phone] Friend, Dr. Johns Referring Provider [phone] Friend, Dr. Johns Other Provider [phone] [facility], [place] Kelsy Primary Care Pro vider Friend, Dr. Johns Attending Provider [phone] [facility], [place] Kelsy Referring Provid er Paul WEDDING CAKE DESIGNER, SIRENA-Kimi Le Attending Provider [phone] [facility], Daniel Tierney Primary Care Pro vider Friend, Dr. Johns Attending Provider [phone] ROSAS SALINASN-SERVICE DELIVERY CONSULTANT, VANI Primary Care Unavailab noelle HUANG DO, DR JUDSON Godinez Attending Unavailable Dr. Sarah Purdy Emergency Provider Dr. [place] Wisdom Admit Provider Dr. [place] Wisdom Attending Provider Dr. [place] Wisdom Other Provider Dr. Garrick Mcgowan Attending Provider Dr. Laura Li Attending Provider Unavailable Dr. Laura Li Other Provider Unavailable [facility], Daniel Levinevalatie Primary Care Pro vider Dr. Sarah Purdy Emergency Provider Dr. [place] Wisdomit Provider Dr. [place] Wisdom Attending Provider Dr. [place] Wisdom Other Provider Dr. Garrick Mcgowan Attending Provider Dr. Laura Li Attending Provider Unavailable Dr. Laura Li Other Provider Unavailable [facility], [facility] Referring Provid er Dr. Andreas Oliva Attending Provider Dr. Hubert Mo Attending Provider Avinash WEDDING CAKE DESIGNER, WEDDING CAKE DESIGNER-C Naina Primary Care Provider CAL PAYTON Admitting Unavailable CAL PAYTON Attending Unavailable DULCE CHAVEZ Unavailable [facility], [facility] Primary Care Pro vider [facility], [facility] Referring Provid er Dr. Andreas Oliva Attending Provider Dr. Hubert Mo Attending Provider Avinash WEDDING CAKE DESIGNER, WEDDING CAKE DESIGNER-C Naina Primary Care Provider Ernesto Carter DO Unavailable [facility], [facility] Primary Care Provider Un available [facility] Referring Provid er [facility], [facility] Primary Care Provider Un available Avinash WEDDING CAKE DESIGNER, Naina Unavailable Crys Obrien CNP Primary Care Provider Unallocated , Noms Provider Primary Care Provi yoli Phill WEDDING CAKE DESIGNER, Alisson S Unavailable ALISSON LAKE S Attending Unavailable GIOVANA LAKEISSA S Attending Unavailable HUEY CORTES Attending Unavailable JEY JOHNSON Referring Unavaila ble Avinash WEDDING CAKE DESIGNER-C, Naina Primary Care Provider Avinash WEDDING CAKE DESIGNER-C, Naina Referring Provider Dr. Marco Bartlett MD Attending Provider Carina PACK-Karuna Bolden Attending Provider Dr. Stan Lin DO Referring Provider Dr. Stan Lin DO Emergency Provider Avinash WEDDING CAKE DESIGNER-C, Naina Primary Care Provider Dr. Stan Lin DO Attending Provider Mari WEDDING CAKE DESIGNER-C, Karina Attending Provider Mari WEDDING CAKE DESIGNER-C, Karina Referring Provider Beam WEDDING CAKE DESIGNER-C, Zebulun Primary Care Provider Avinash WEDDING CAKE DESIGNER-C, Naina Referring Provider Ike WEDDING CAKE DESIGNER-C, Shawanda Attending Provider Provider, Ed Physician Emergency Provider Eboni Lim WEDDING CAKE DESIGNER-C, Karuna Referring Provider Grayson VARGAS, Dr. Iyer Emergency Provider Avinash WEDDING CAKE DESIGNER-C, Naina Primary Care Provider Carina WEDDING CAKE DESIGNER-C, Karuna Attending Provider Provider, Ed Physician Attending Provider Eboni Galicia MD, Dr. Iyer Attending Provider Ike WEDDING CAKE DESIGNER-CShawanda Referring Provider Fannie VARGAS, Dr. Preciado Attending Provider [phone] Marco Bartlett MD Attending Provider Hazel STEVENSON, Dr. Johns Attending Provider Hazel STEVENSON, Dr. Johns Referring Provider Avinash WEDDING CAKE DESIGNER-C, Naina Primary Care Provider Beam WEDDING CAKE DESIGNER-C, Zebudeb Attending Provider Dr. Stan Lin DO Attending Provider Dr. Stan Lin DO Referring Provider Dr. Stan Lin DO Emergency Provider Mari WEDDING CAKE DESIGNER-C, Karina Attending Provider Mari WEDDING CAKE DESIGNER-C, Karina Referring Provider Beam WEDDING CAKE DESIGNER-C, Zebulun Primary Care Provider Avinash WEDDING CAKE DESIGNER-C, Naina Referring Provider Ike WEDDING CAKE DESIGNER-C, Shawanda Attending Provider Provider, Ed Physician Attending Provider Eboni abreu Provider, Ed Physician Emergency Provider Eboni abreu Beam WEDDING CAKE DESIGNER-C, Zebulun Referring Provider Grayson VARGAS, Dr. Iyer Attending Provider Grayson VARGAS, Dr. Iyer Emergency Provider Ike WEDDING CAKE DESIGNER-C, Shawanda Referring Provider Dhruv VARGAS, Dr. Lara Attending Provider Fannie VARGAS, Dr. Preciado Attending Provider Hazel STEVENSON, Dr. Johns Attending Provider Hazel STEVENSON, Dr. Johns Referring Provider Avinash WEDDING CAKE DESIGNER-C, Naina Attending Provider Sarah STEVENSON, Dr. Strange Emergency Provider Avinash WEDDING CAKE DESIGNER-C, Naina Primary Care Provider Dr. Stan Lin DO Attending Provider Dr. Stan Lin DO Emergency Provider Beam WEDDING CAKE DESIGNER-C, Zebulun Attending Provider Avinash WEDDING CAKE DESIGNER-C, Naina Attending Provider Dr. Alexandr Smith DO Emergency Provider Beam WEDDING CAKE DESIGNER-C, Zebulun Primary Care Provider Dr. Alexandr Smith DO Attending Provider Rodolfo Das MD Emergency Provider Beam WEDDING CAKE DESIGNER-C, Zebulun Primary Care Provider Ike WEDDING CAKE DESIGNER-CShawanda Attending Provider Avinash WEDDING CAKE DESIGNER-C, Naina Referring Provider Minh VARGAS, Dr. Rteana Referring Provider Minh VARGAS, Dr. Retana Emergency Provider Beam WEDDING CAKE DESIGNER-C, Zebulun Primary Care Provider Beam WEDDING CAKE DESIGNER-C, Zebulun Referring Provider Ike WEDDING CAKE DESIGNER-CShawanda Attending Provider Thiago VARGAS, Rodolfo Attending Provider Minh VARGAS, Dr. Retana Attending Provider Dr. Andreas Oliva DO Other Provider Beam WEDDING CAKE DESIGNER-C, Zebuluadalgisa Primary Care Physician Beam WEDDING CAKE DESIGNER-C, Zebulun Referring Provider Ike WEDDING CAKE DESIGNER-C, Shawanda Attending Physician Hazel STEVENSON, Dr. Johsn Attending Physician Naina Hoffman Attending Physician Sarah STEVENSON, Dr. Strange Attending Physician Sarah STEVENSON, [...] VARGAS, Dr. León Emergency Department Physician Beam WEDDING CAKE DESIGNER-C, Vazquezbudeb Primary Care Physician Beam WEDDING CAKE DESIGNER-C, Zebudeb Referring Provider Hazel STEVENSON, Dr. Johns Attending Physician Ike PACK-CShawanda Attending Physician Dr. Mau Smallwood MD Attending Physician [phone] Beam WEDDING CAKE DESIGNER-C, Zebuluadalgisa Attending Physician Paul WEDDING CAKE DESIGNER-C, Zeus Attending Physician Paul WEDDING CAKE DESIGNER-C, Zeus Referring Provider Beam VSC, Zebulun Primary Care Unavailable Alexandr Smith Attending Unavailable Rodolfo Das Attending Unavailable Beam VSC, Zebulun Primary Care Unavailable Mau Smallwood Attending Unavailable Beam VSC, Zebulun Primary Care Unavailable Paul WEDDING CAKE DESIGNER, Zeus Attending Unavailable Paul WEDDING CAKE DESIGNERZeus Referring Unavailable Beam VSC, Zebulun Primary Care [...] ble ROXY, CARISSA Attending Unavailable BENDARAM, JEY LAGUNA Referring Unavaila ble LEONID, LAURA Attending Unavailable KIBERA, PERIS Referring Unavailable LEONID, LAURA Attending Unavailable BENDARAM, JEY LAGUNA Attending Unavaila ble KIBERA, PERIS Referring Unavailable LEONID, LAURA Attending Unavailable BENDARAM, JEY LAGUNA Attending Unavaila ble Beam WEDDING CAKE DESIGNER-C, Zebulun Primary Care Physician Avinash PACK-CNaina Attending Physician Dr. Alexandr Smith DO Attending Physician Dr. Alexandr Smith DO Emergency Department Physic melissa Thiago VARGAS, Rodolfo Attending Physician Rodolfo Das MD Emergency Department Physician Carina WEDDING CAKE DESIGNER-C, Karuna Referring Provider Dr. Andreas Oliva DO Attending Physician [phone] Minh VARGAS, Dr. Retana Attending Physician Dr. [...] Emergency Department Physician Karuna Tejada Attending Physician [phone] Zeus Velez Attending Physician [phone] Zeus Velez Referring Provider [phone] Allergies Allergy Classification Reported Allergen(s) Allergy Type Date of Onset Reaction(s) Facility (20 sources) escitalopram; Translations: [ESCITALOPRAM OXALATE] Drug Allergy 07-15-19 17 Mental Status Change [facility] Repository (20 sources) lactase; Translations: [LACTASE] Drug Allergy 09-12-19 12 Diarrhea, GI Upset [facility] Repository (2 sources) ondansetron; Translations: [ONDANSETRON HCL] Drug Allergy 07-15-19 17 AOF [facility] Repository (20 sources) Seasonal allergy; Translations: [SEASONAL ALLERGIES] Propensity to adverse reactions (disorder) 12-03-19 13 Cough [facility] Repository (1 source) GLUTEN MEAL; Translations: [GLUTEN MEAL] Propensity to adverse reactions to drug (disorder) 07-15-19 17 [facility] Repository (20 sources) Escitalopram; Translations: [escitalopram] Drug Allergy 07-15-19 17 Other: See Comments [facility] Comment on above: increased si (20 sources) Ondansetron; Translations: [ondansetron] Drug Allergy 07-15-19 17 Anaphylaxis, Other: See Comments [facility] (20 sources) Pollen; Translations: [POLLEN EXTRACTS] Allergy to substance 12-10-19 21 Hives, Intolerance [facility] (20 sources) Ondansetron; Translations: [ONDANSETRON (PF) IN DEXTROSE] Drug Allergy 08-22-19 17 Swelling, GI Upset [facility] (13 sources) Tricyclic Compounds Drug Intolerance 08-22-19 17 Other: See Comments [facility] (20 sources) Gluten Flour; Translations: [GLUTEN FLOUR] Food Intolerance 08-22-19 17 Diarrhea [facility] (20 sources) metFORMIN; Translations: [METFORMIN] Drug Allergy 02-28-19 23 Diarrhea, GI Upset [facility] (20 sources) broccoli allergenic extract; Translations: [BROCCOLI] Drug Allergy 04-08-19 Diarrhea [facility] Repository (20 sources) cauliflower allergenic extract; Translations: [CAULIFLOWER] Drug Allergy 04-08-19 Diarrhea [facility] Repository (20 sources) tomato allergenic extract; Translations: [TOMATO] Drug Allergy 04-08-19 GI Upset [facility] Repository (17 sources) Tricyclic Antidepressants And Tricyclic Compounds; Translations: [TRICYCLIC ANTIDEPRESSANTS AND TRICYCLIC COMPOUNDS] Drug Intolerance 08-22-19 Other: See Comments [facility] (1 source) Escitalopram Drug Allergy 12-10-19 [facility] Repository (1 source) metFORMIN Drug Allergy 12-10-19 [facility] Rep[facility] (1 source) Ondansetron Drug Allergy 12-10-19 [facility] Rep[facility] (1 source) Pollen Drug allergy (disorder) 12-10-19 [facility] Repository Medications Current Medications Medication [...] Comment on above: Take 1 capsule by [facility] one time a week. dicyclomine [...] / neomycin 3.5 mg/ml / polymyxin b 93616 unt/ml otic suspension (1 source) Aminoglycoside Antibacterial, Polymyxin-class Antibacterial, Corticosteroid Start: 01-25-2024 End: 01-30-2024 pkgmjpds-ykkqbwgmd-rwtbgfilb isone (CORTISPORIN) 3.5-10,000-1 mg/mL-unit/mL-% otic suspension Indications: Acute otitis media, left Use 3 Drops in the left ear four times daily for 5 days. 10 mL 01/25/2024 01/30/2024 Active imipramine hydrochloride 25 mg oral tablet (20 sources) Tricyclic Antidepressant Start: 12-18-2022 [facility] (1 source) Start: 12-14-2020 lithium 300 mg oral capsule Dose : 300 mg = 1 cap(s), Oral, BID, 0 Refill(s) Start Date: 12/14/20 Status: Ordered lithium carbonate 600 mg oral capsule (20 sources) Start: 01-24-2022 Start: 01-24-2022 End: 12-12-2021 take 600 mg by mouth at bedtime [facility] Carbonate Acti ve 600 MG PO AT BEDTIME January 24, 2022 1:00am Start: 01-24-2022 take 600 mg by mouth at bedtim e [facility] Carbonate Active 600 MG PO AT BEDTIME [...] End: 09-27-2024 Start: 12-12-2021 End: 10-26-2023 amylase [id number] unt / lipase [id number] unt / protease [id number] unt delayed release oral capsule (5 sources) [...] for constipation 473 September 28, 2023 12:00am Qokxgl-Fodkshlt-Rvifhls (Zenpep) 40,000-126,000- 168,000 unit capsule,delayed release(DR/EC) (20 sources) Start: 03-16-2022 End: 06-06-2022 take 3 capsules by mouth three times daily at mealtime Lltndk-Fnrqkdfc-Nvojjfv (Zenpep) 40,000-126,000- 168,000 unit capsule,delayed release(DR/EC) Discontinued 3 NMA PO THREE TIMES A DAY 189 0 March 16, 2022 1:00am June 06, 2022 11:02am take three capsules with meals Start: 03-16-2022 End: 06-06-2022 take 3 capsules by mouth three times daily at mealtime Gueewm-Hjiqyyib-Yzachlw (Zenpep) 40,000-126,000- 168,000 unit capsule,delayed release(DR/EC) Discontinued 3 NMA PO THREE TIMES A DAY 189 March 16, 2022 1:00am June 06, 2022 11:02am take three capsules with meals Start: 03-16-2022 End: 06-06-2022 take 3 capsules by mouth three times daily at mealtime Znxkkj-Cwdmxsfa-Lhprkvw (Zenpep) 40,000-126,000- 168,000 unit capsule,delayed release(DR/EC) Discontinued 3 CAP PO THREE TIMES A DAY 189 March 16, 2022 12:00am June 06, 2022 10:02am take three capsules with meals Start: 03-16-2022 End: 06-06-2022 take 3 capsules by mouth three times daily at mealtime Jzbfja-Xxnpzxit-Rjagwdf (Zenpep) 40,000-126,000- 168,000 unit capsule,delayed release(DR/EC) Discontinued 3 CAP PO THREE TIMES A DAY 189 March 16, 2022 1:00am June 06, 2022 11:02am take three capsules with meals Start: 03-16-2022 take 3 capsules by m outh three times daily at mealtime Vtuyup-Tsghyzkk-Uwrxnvh (Zenpep) 40,000-126,000- 168,000 unit capsule,delayed release(DR/EC) Active [...] above: Take by mouth. polyethylene glycol 3350 47114 mg powder for oral solution (20 sources) [...] Dose : 25 mg = 1 supp, CT, q6hr, PRN as needed for nausea/vomiting, # [...] [Obesity, Class III, BMI 40-49.9 (morbid obesity) ([facility])] Onset: 10-26-2023 Unclassified (1 source) PCOS Onset: 07-15-2024 Viral infection (20 sources) Disease caused by 2019-nCoV; Translations: [COVID-19] 05-28-2020 Episodic Past or Other Problems Problem Classification Problem Date Documented Date Episodic/Chronic Cardiac dysrhythmias (20 sources) Palpitations; Translations: [Palpitations] Onset: 07-11-2023 05-16-2024 Episodic Other aftercare (1 source) Other prison (current) drug therapy; Translations: [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 Mixed Gram Pos Gram Neg Org Brownell Count 1000-10,000 MIXC Mixed contaminants. Submit a new specimen if indicated. Normal [facility] Comment on above: Performed By: #### M 100.0516 ####[facility] [address] [place], [place], [id number] Telemetry Technician Office Visit Reporton 12-09-2024 Telemetry Technician Office Visit Report Normal [facility] Urine cultureOrdered By: Shalonda Miller on 12-09-2024 Bacteria identified Cx Nom (U) Mixed Gram Pos & Gram Neg Org Abnormal [facility] Bacteria identified Cx Nom (U) Mixed Gram Pos & Gram Neg Org Abnormal [facility] Absolute lymphocyte countOrd ered By: Shawanda Ramires on 11-28-2024 Lymphocytes Auto (Unsp spec) [#/Vol] 2.18 10*3/uL 0.83-4.51 [facility] Anion gap in Serum or Plasma Ordered By: Shawanda Ramires on 11-28-2024 Anion gap [Moles/Vol] 9 mmol/L 5- [facility] Automated lymphocyte count a s percentage of total leukocytesOrdered By: Shawanda Ramires on 11-28-2024 Lymphocytes/100 WBC Auto (Unsp spec) 27.7 % - [facility] BUN/creatinine ratioOrdered By: Shawanda Ramires on 11-28-2024 Urea nitrogen/Creatinine [Mass ratio] 22.0 mg/mg High - [facility] Basophil percentageOrdered B y: Shawanda Ramires on 11-28-2024 Basophils/100 WBC (Bld) 0.6 % 0-1 [facility] Bilirubin, totalOrdered By: Shawanda Ramires on 11-28-2024 Bilirubin [Mass/Vol] 0.26 mg/dL 0.00-1.30 [facility] CBC W/Diff, Automatedon 11-19 Absolute Lymph 2.18 X10 3/uL Normal 0.83-4.51 [facility] Comment on above: Performed By: #### L 501.9520, L100.0100, L501.9060, L500.4050, L501.52126, L501.5200, L506.0400, L503.7505 ####[facility] [address] [place], [address] Absolute Neut 4.8 X10 3/uL Normal 2.0-7.7 [facility] Comment on above: Performed By: #### L 501.9520, L100.0100, L501.9060, L500.4050, L501.45805, L501.5200, L506.0400, L503.7505 ####[facility] [address] [place], [address] Basophils/100 WBC (Bld) 0.6 % Normal 0-1 [facility] Comment on above: Performed By: #### L 501.9520, L100.0100, L501.9060, L500.4050, L501.47408, L501.5200, L506.0400, L503.7505 ####[facility] [address] [place], [address] Eosinophils/100 WBC (Bld) 1.3 % Normal 0-5 [facility] Comment on above: Performed By: #### L 501.9520, L100.0100, L501.9060, L500.4050, L501.04775, L501.5200, L506.0400, L503.7505 ####[facility] [address] [place], [address] Erythrocyte distribution width (RBC) [Ratio] 14.9 % High 11.6-14.6 [facility] Comment on above: Performed By: #### L 501.9520, L100.0100, L501.9060, L500.4050, L501.22496, L501.5200, L506.0400, L503.7505 ####[facility] [address] [place], [address] Hematocrit (Bld) [Volume fraction] 37.4 % Normal 37-47 [facility] Comment on above: Performed By: #### L 501.9520, L100.0100, L501.9060, L500.4050, L501.38135, L501.5200, L506.0400, L503.7505 ####[facility] [address] [place], [address] Hemoglobin (Bld) [Mass/Vol] 12.1 g/dL Normal 12.0-15.0 [facility] Comment on above: Performed By: #### L 501.9520, L100.0100, L501.9060, L500.4050, L501.51653, L501.5200, L506.0400, L503.7505 ####[facility] [address] [place], [address] IG% 0.300 Normal 0.0-0.9 [facility] Comment on above: Result Comment: IG% - Immature Granulocytes (promyelocytes, myelocytes andmetamyelocytes) > 1% indicates that a LEFT SHIFT is Present. Performed By: #### L 501.9520, L100.0100, L501.9060, L500.4050, L501.36416, L501.5200, L506.0400, L503.7505 ####[facility] [address] [place], [address] Lymphocytes/100 WBC (Bld) 27.7 % Normal 19-41 [facility] Comment on above: Performed By: #### L 501.9520, L100.0100, L501.9060, L500.4050, L501.51901, L501.5200, L506.0400, L503.7505 ####[facility] [address] [place], [address] MCH (RBC) [Entitic mass] 27.6 pg Normal 27.0-32.0 [facility] Comment on above: Performed By: #### L 501.9520, L100.0100, L501.9060, L500.4050, L501.39387, L501.5200, L506.0400, L503.7505 ####[facility] [address] [place], [address] MCHC (RBC) [Mass/Vol] 32.4 g/dL Normal 32-36 [facility] Comment on above: Performed By: #### L 501.9520, L100.0100, L501.9060, L500.4050, L501.96391, L501.5200, L506.0400, L503.7505 ####[facility] [address] [place], [address] MCV (RBC) [Entitic vol] 85.2 fL Normal 81-99 [facility] Comment on above: Performed By: #### L 501.9520, L100.0100, L501.9060, L500.4050, L501.75887, L501.5200, L506.0400, L503.7505 ####[facility] [address] [place], [address] Monocytes/100 WBC (Bld) 8.8 % Normal 0-10 [facility] Comment on above: Performed By: #### L 501.9520, L100.0100, L501.9060, L500.4050, L501.52060, L501.5200, L506.0400, L503.7505 ####[facility] [address] [place], [address] Neutrophils/100 WBC (Bld) 61.3 % Normal 47-70 [facility] Comment on above: Performed By: #### L 501.9520, L100.0100, L501.9060, L500.4050, L501.79426, L501.5200, L506.0400, L503.7505 ####[facility] [address] [place], [address] Nucleated RBC (Bld) [#/Vol] 0 10*3/uL Normal 0-5 [facility] Comment on above: Performed By: #### L 501.9520, L100.0100, L501.9060, L500.4050, L501.73042, L501.5200, L506.0400, L503.7505 ####[facility] [address] [place], [address] Platelet mean volume (Bld) [Entitic vol] 9.1 fL Normal 6.2-12.0 [facility] Comment on above: Performed By: #### L 501.9520, L100.0100, L501.9060, L500.4050, L501.15768, L501.5200, L506.0400, L503.7505 ####[facility] [address] [place], [address] Platelets (Bld) [#/Vol] 383 10*3/uL Normal 150-450 [facility] Comment on above: Performed By: #### L 501.9520, L100.0100, L501.9060, L500.4050, L501.78355, L501.5200, L506.0400, L503.7505 ####[facility] [address] [place], [address] RBC (Bld) [#/Vol] 4.39 10*6/uL Normal 4.2-5.4 [facility] Comment on above: Performed By: #### L 501.9520, L100.0100, L501.9060, L500.4050, L501.78454, L501.5200, L506.0400, L503.7505 ####[facility] [address] [place], [address] RDW SD 47.3 fl High 35.1-43.9 [facility] Comment on above: Performed By: #### L 501.9520, L100.0100, L501.9060, L500.4050, L501.03684, L501.5200, L506.0400, L503.7505 ####[facility] [address] [place], [address] WBC (Bld) [#/Vol] 7.9 10*3/uL Normal 4.4-11.0 [facility] Comment on above: Performed By: #### L 501.9520, L100.0100, L501.9060, L500.4050, L501.93379, L501.5200, L506.0400, L503.7505 ####[facility] [address] [place], [address] Carbon dioxide, total [Moles /volume] in Central venous bloodOrdered By: Shawanda Ramires on 11-28-2024 CO2 [Moles/Vol] 21.6 mmol/L 21.0-32.0 [facility] Cardiology Visit Reporton Cardiology Visit Report Normal [facility] Chloride assayOrdered By: Kirk Ramires on 11-28-2024 Chloride [Moles/Vol] 107 mmol/L 98-108 [facility] Comprehensive Metabolic Prof ilon 11-28-2024 Albumin [Mass/Vol] 3.7 g/dL Normal 3.5-5.0 [facility] Comment on above: Performed By: #### L 501.9520, L100.0100, L501.9060, L500.4050, L501.22964, L501.5200, L506.0400, L503.7505 ####[facility] [address] [place], [address] Albumin/Globulin [Mass ratio] 1.3 {ratio} Normal 0.9-2.4 [facility] Comment on above: Performed By: #### L 501.9520, L100.0100, L501.9060, L500.4050, L501.78074, L501.5200, L506.0400, L503.7505 ####[facility] [address] [place], [address] ALK PHOS 51 U/L Normal 35-104 [facility] Comment on above: Performed By: #### L 501.9520, L100.0100, L501.9060, L500.4050, L501.40786, L501.5200, L506.0400, L503.7505 ####[facility] [address] [place], [address] ALT [Catalytic activity/Vol] 39 U/L High <=34 [facility] Comment on above: Performed By: #### L 501.9520, L100.0100, L501.9060, L500.4050, L501.84247, L501.5200, L506.0400, L503.7505 ####[facility] [address] [place], [address] AST [Catalytic activity/Vol] 39 U/L High <=31 [facility] Comment on above: Performed By: #### L 501.9520, L100.0100, L501.9060, L500.4050, L501.90600, L501.5200, L506.0400, L503.7505 ####[facility] [address] [place], [address] Bilirubin [Mass/Vol] 0.26 mg/dL Normal 0.00-1.30 [facility] Comment on above: Performed By: #### L 501.9520, L100.0100, L501.9060, L500.4050, L501.70692, L501.5200, L506.0400, L503.7505 ####[facility] [address] [place], [address] BUN/CRE 22.0 RATIO High 10-20 [facility] Comment on above: Performed By: #### L 501.9520, L100.0100, L501.9060, L500.4050, L501.91395, L501.5200, L506.0400, L503.7505 ####[facility] [address] [place], [address] Calcium [Mass/Vol] 9.0 mg/dL Normal 7.6-11.0 [facility] Comment on above: Performed By: #### L 501.9520, L100.0100, L501.9060, L500.4050, L501.37656, L501.5200, L506.0400, L503.7505 ####[facility] [address] [place], [address] Chloride [Moles/Vol] 107 mmol/L Normal 98-108 [facility] Comment on above: Performed By: #### L 501.9520, L100.0100, L501.9060, L500.4050, L501.80648, L501.5200, L506.0400, L503.7505 ####[facility] [address] [place], [place], [phone] CO2 [Moles/Vol] 21.6 mmol/L Normal 21.0-32.0 [facility] Comment on above: Performed By: #### L 501.9520, L100.0100, L501.9060, L500.4050, L501.65296, L501.5200, L506.0400, L503.7505 ####[facility] [address] [place], [place], [phone] Creatinine [Mass/Vol] 0.68 mg/dL Low 0.70-1.20 [facility] Comment on above: Performed By: #### L 501.9520, L100.0100, L501.9060, L500.4050, L501.87595, L501.5200, L506.0400, L503.7505 ####[facility] [address] [place], [place], [phone]([phone] GAP 9 Normal 5-15 [facility] Comment on above: Performed By: #### L 501.9520, L100.0100, L501.9060, L500.4050, L501.91338, L501.5200, L506.0400, L503.7505 ####[facility] [address] [place], [place], [phone](169) GFR/1.73 sq M.predicted among non-blacks MDRD (S/P/Bld) [Vol rate/Area] 121 mL/min/{1.73_m2} Normal >60 [facility] Comment on above: Result Comment: mL/m in/1.73m2 CKD-EPI Creatinine Equation (2020) Performed By: #### L 501.9520, L100.0100, L501.9060, L500.4050, L501.05736, L501.5200, L506.0400, L503.7505 ####[facility] [address] [place], [address] Globulin (S) [Mass/Vol] 2.9 g/dL Normal 2.2-4.2 [facility] Comment on above: Performed By: #### L 501.9520, L100.0100, L501.9060, L500.4050, L501.25233, L501.5200, L506.0400, L503.7505 ####[facility] [address] [place], [address] Glucose [Mass/Vol] 89 mg/dL Normal 70-99 [facility] Comment on above: Performed By: #### L 501.9520, L100.0100, L501.9060, L500.4050, L501.39373, L501.5200, L506.0400, L503.7505 ####[facility] [address] [place], [address] Potassium [Moles/Vol] 4.6 mmol/L Normal 3.3-5.1 [facility] Comment on above: Performed By: #### L 501.9520, L100.0100, L501.9060, L500.4050, L501.14944, L501.5200, L506.0400, L503.7505 ####[facility] [address] [place], [address] Sodium [Moles/Vol] 138 mmol/L Normal 133-145 [facility] Comment on above: Performed By: #### L 501.9520, L100.0100, L501.9060, L500.4050, L501.78343, L501.5200, L506.0400, L503.7505 ####[facility] [address] [place], [address] T PROT 6.6 g/dL Normal 5.9-8.4 [facility] Comment on above: Performed By: #### L 501.9520, L100.0100, L501.9060, L500.4050, L501.61866, L501.5200, L506.0400, L503.7505 ####[facility] [address] [place], [address] Urea nitrogen [Mass/Vol] 15 mg/dL Normal 4-19 [facility] Comment on above: Performed By: #### L 501.9520, L100.0100, L501.9060, L500.4050, L501.46800, L501.5200, L506.0400, L503.7505 ####[facility] [address] [place], [address] Eosinophil percentageOrdered By: Shawanda Ramires on 11-28-2024 Eosinophils/100 WBC (Bld) 1.3 % 0-5 [facility] Erythrocyte distribution wid th ratioOrdered By: Shawanda Ramires on 11-28-2024 Erythrocyte distribution width (RBC) [Ratio] 14.9 % High 11.6-14.6 [facility] Erythrocyte distribution wid th standard deviationOrdered By: Shawanda Ramires on 11-28-2024 Erythrocyte distribution width (RBC) [Ratio] 47.3 fl High 35.1-43.9 [facility] Free T3on 11-28-2024 Free T3 [Mass/Vol] 2.8 pg/mL Normal 2.18-3.98 [facility] Comment on above: Performed By: #### L 501.9520, L100.0100, L501.9060, L500.4050, L501.16644, L501.5200, L506.0400, L503.7505 ####[facility] [address] [place], [place], [id number] Free N2Xqagkcu By: Shawanda byrnes on 11-28-2024 Free T3 [Mass/Vol] 2.8 pg/mL 2.18-3.98 [facility] Glomerular filtration rate ( GFR) estimation/1.73 sq m using serum, plasma, or whole bOrdered By: Shawanda Ramires on 11-28-2024 GFR/1.73 sq M.predicted among non-blacks MDRD (S/P/Bld) [Vol rate/Area] 121 mL/min/{1.73_m2} >60 [facility] Hematocrit Auto (Bld) [Volum e fraction]Ordered By: Shawanda Ramires on 11-28-2024 Hematocrit (Bld) [Volume fraction] 37.4 % 37-47 [facility] Hemoglobin measurementOrdere d By: Shawanda Ramires on 11-28-2024 Hemoglobin (Bld) [Mass/Vol] 12.1 g/dL 12.0-15.0 [facility] Immature granulocytes/100 WB C Auto (Bld)Ordered By: Shawanda Ramires on 11-28-2024 Immature granulocytes/100 WBC (Bld) 0.300 % 0.0-0.9 [facility] Lithiumon 11-28-2024 LI 0.69 mmol/L Normal 0.60-1.20 [facility] Comment on above: Order Comment: Performed By: #### L 501.9520, L100.0100, L501.9060, L500.4050, L501.42598, L501.5200, L506.0400, L503.7505 ####[facility] [address] [place], [place], [phone] MCV (mean corpuscular volume ) determinationOrdered By: Shawanda Ramires on 11-28-2024 MCV (RBC) [Entitic vol] 85.2 fL 81-99 [facility] Magnesiumon 11-28-2024 Magnesium [Mass/Vol] 2.1 mg/dL Normal 1.5-2.2 [facility] Comment on above: Performed By: #### L 501.9520, L100.0100, L501.9060, L500.4050, L501.99364, L501.5200, L506.0400, L503.7505 ####[facility] [address] [place], [address] Magnesium measurement (mass/ volume)Ordered By: Shawanda Ramires on 11-28-2024 Magnesium (Unsp spec) [Mass/Vol] 2.1 mg/dL 1.5-2.2 [facility] Mean corpuscular hemoglobin (MCH) determinationOrdered By: Shawanda Ramires on 11-28-2024 MCH (RBC) [Entitic mass] 27.6 pg 27.0-32.0 [facility] Monocyte percentageOrdered B y: Shawanda Ramires on 11-28-2024 Monocytes/100 WBC (Bld) 8.8 % 0-10 [facility] Natriuretic peptide.B prohor erica N-Terminal [Mass/volume] in Serum or PlasmaOrdered By: Shawanda Ramires on 11-28-2024 Natriuretic peptide.B prohormone N-Terminal [Mass/Vol] 144 pg/mL <450 [facility] Neutrophil percentageOrdered By: Shawanda Ramires on 11-28-2024 Neutrophils/100 WBC (Bld) 61.3 % 47-70 [facility] No Panel InformationOrdered By: Shawanda Ramires on 11-28-2024 39 U/L High <32 [facility] Platelet countOrdered By: Kirk Ramires on 11-28-2024 Platelets (Bld) [#/Vol] 383 10*3/uL 150-450 [facility] Potassium measurement (mass/ volume)Ordered By: Shawanda Ramires on 11-28-2024 Potassium (Unsp spec) [Mass/Vol] 4.6 mmol/L 3.3-5.1 [facility] Pro- Brain NATRIURETIC PEPTI Amara 11-28-2024 Natriuretic peptide B (Bld) [Mass/Vol] 144 pg/mL Normal <=450 [facility] Comment on above: Result Comment: Hear t Failure Unlikely: < 300 pg/mLHeart Failure Likely< 50 Years: > 450 pg/mL50-75 Years: > 900 pg/mL>75 Years: > 1800 pg/mL Performed By: #### L 501.9582, L100.0100, L501.9060, L500.4050, L501.54119, L501.5200, L506.0400, L503.7505 ####[facility] [address] [place], [address] RBC Auto (Bld) [#/Vol]Ordere d By: Shawanda Ramires on 11-28-2024 RBC (Bld) [#/Vol] 4.39 10*6/uL 4.2-5.4 [facility] Serum creatinine measurement (mass/volume)Ordered By: Shawanda Ramires on 11-28-2024 Creatinine [Mass/Vol] 0.68 mg/dL Low 0.70-1.20 [facility] Serum globulin measurementOr dered By: Shawanda Ramires on 11-28-2024 Globulin (S) [Mass/Vol] 2.9 g/dL 2.2-4.2 [facility] Serum glucose measurement (m ass/volume)Ordered By: Shawanda Ramires on 11-28-2024 Glucose [Mass/Vol] 89 mg/dL 70-99 [facility] Serum or plasma alanine godinez otransferase (ALT) measurementOrdered By: Shawanda Ramires on 11-28-2024 ALT [Catalytic activity/Vol] 39 U/L High <35 [facility] Serum or plasma albumin cherelle urement (mass/volume)Ordered By: Shawanda Ramires on 11-28-2024 Albumin [Mass/Vol] 3.7 g/dL 3.5-5.0 [facility] Serum or plasma albumin/glob ulin mass ratioOrdered By: Shawanda Ramires on 11-28-2024 Albumin/Globulin [Mass ratio] 1.3 {ratio} 0.9-2.4 [facility] Serum or plasma alkaline rohit sphatase measurementOrdered By: Shawanda Ramires on 11-28-2024 ALP [Catalytic activity/Vol] 51 U/L 35-104 [facility] Serum or plasma calcium cherelle urement (mass/volume)Ordered By: Shawanda Ramires on 11-28-2024 Calcium [Mass/Vol] 9.0 mg/dL 7.6-11.0 [facility] Serum or plasma urea nitroge n measurement (mass/volume)Ordered By: Shawanda Ramires on 11-28-2024 Urea nitrogen [Mass/Vol] 15 mg/dL 4-19 [facility] Sodium levelOrdered By: Danielle Ramires on 11-28-2024 Sodium [Moles/Vol] 138 mmol/L 133-145 [facility] T4 Free Directon 11-28-2024 T4 FREE DIRECT 1.10 ng/dL Normal 0.76-1.46 [facility] Comment on above: Performed By: #### L 501.9520, L100.0100, L501.9060, L500.4050, L501.79558, L501.5200, L506.0400, L503.7505 ####[facility] [address] [place], [place], [id number] T4 freeOrdered By: Shawanda byrnes on 11-28-2024 Free T4 [Mass/Vol] 1.10 ng/dL 0.76-1.46 [facility] TSH DL <= 0.005 mIU/L QnOrde red By: Shawanda Ramires on 11-28-2024 TSH Qn 1.400 uIU/mL 0.300-4.200 [facility] Thyroid Stim Hormone (TSH)on 11-28-2024 TSH 1.400 uIU/mL Normal 0.300-4.200 [facility] Comment on above: Performed By: #### L 501.9520, L100.0100, L501.9060, L500.4050, L501.47290, L501.5200, L506.0400, L503.7505 ####[facility] [address] [place], [place], [id number] Total proteinOrdered By: Timothy Ramires on 11-28-2024 Protein [Mass/Vol] 6.6 g/dL 5.9-8.4 [facility] White blood cell (WBC) count Ordered By: Shawanda Ramires on 11-28-2024 WBC (Bld) [#/Vol] 7.9 10*3/uL 4.4-11.0 [facility] Absolute lymphocyte countOrd ered By: Karuna Lim on 11-20-2024 Lymphocytes Auto (Unsp spec) [#/Vol] 1.72 10*3/uL 0.83-4.51 [facility] Anion gap in Serum or Plasma Ordered By: Zebulun Beam on 11-20-2024 Anion gap [Moles/Vol] 11 mmol/L - [facility] Automated lymphocyte count a s percentage of total leukocytesOrdered By: Zebulun Beam on 11-20-2024 Lymphocytes/100 WBC Auto (Unsp spec) 23.1 % - [facility] BUN/creatinine ratioOrdered By: Zebulun Beam on 11-20-2024 Urea nitrogen/Creatinine [Mass ratio] 19.2 mg/mg 12-08 [facility] Basophil percentageOrdered B y: Zebulun Beam on 11-20-2024 Basophils/100 WBC (Bld) 0.5 % 0-1 [facility] Bilirubin, totalOrdered By: Zebulun Beam on 11-20-2024 Bilirubin [Mass/Vol] 0.39 mg/dL 0.00-1.30 [facility] CBC W/Diff, Automatedon Absolute Lymph 1.72 X10 3/uL Normal 0.83-4.51 [facility] Comment on above: Performed By: #### L 500.4050, L506.1001, L503.0106, L100.0100, L501.9520 ####[facility] [address] [place], [address] Absolute Neut 5.0 X10 3/uL Normal 2.0-7.7 [facility] Comment on above: Performed By: #### L 500.4050, L506.1001, L503.0106, L100.0100, L501.9520 ####[facility] [address] [place], [address] Basophils/100 WBC (Bld) 0.5 % Normal 0-1 [facility] Comment on above: Performed By: #### L 500.4050, L506.1001, L503.0106, L100.0100, L501.9520 ####[facility] [address] [place], [address] Eosinophils/100 WBC (Bld) 1.2 % Normal 0-5 [facility] Comment on above: Performed By: #### L 500.4050, L506.1001, L503.0106, L100.0100, L501.9520 ####[facility] [address] [place], [address] Erythrocyte distribution width (RBC) [Ratio] 14.6 % Normal 11.6-14.6 [facility] Comment on above: Performed By: #### L 500.4050, L506.1001, L503.0106, L100.0100, L501.9520 ####[facility] [address] [place], [address] Hematocrit (Bld) [Volume fraction] 38.8 % Normal 37-47 [facility] Comment on above: Performed By: #### L 500.4050, L506.1001, L503.0106, L100.0100, L501.9520 ####[facility] [address] [place], [address] Hemoglobin (Bld) [Mass/Vol] 12.3 g/dL Normal 12.0-15.0 [facility] Comment on above: Performed By: #### L 500.4050, L506.1001, L503.0106, L100.0100, L501.9520 ####[facility] [address] [place], [address] IG% 0.300 Normal 0.0-0.9 [facility] Comment on above: Result Comment: IG% - Immature Granulocytes (promyelocytes, myelocytes andmetamyelocytes) > 1% indicates that a LEFT SHIFT is Present. Performed By: #### L 500.4050, L506.1001, L503.0106, L100.0100, L501.9520 ####[facility] [address] [place], [address] Lymphocytes/100 WBC (Bld) 23.1 % Normal 19-41 [facility] Comment on above: Performed By: #### L 500.4050, L506.1001, L503.0106, L100.0100, L501.9520 ####[facility] [address] [place], [address] MCH (RBC) [Entitic mass] 27.5 pg Normal 27.0-32.0 [facility] Comment on above: Performed By: #### L 500.4050, L506.1001, L503.0106, L100.0100, L501.9520 ####[facility] [address] [place], [address] MCHC (RBC) [Mass/Vol] 31.7 g/dL Low 32-36 [facility] Comment on above: Performed By: #### L 500.4050, L506.1001, L503.0106, L100.0100, L501.9520 ####[facility] [address] [place], [address] MCV (RBC) [Entitic vol] 86.6 fL Normal 81-99 [facility] Comment on above: Performed By: #### L 500.4050, L506.1001, L503.0106, L100.0100, L501.9520 ####[facility] [address] [place], [address] Monocytes/100 WBC (Bld) 7.6 % Normal 0-10 [facility] Comment on above: Performed By: #### L 500.4050, L506.1001, L503.0106, L100.0100, L501.9520 ####[facility] [address] [place], [address] Neutrophils/100 WBC (Bld) 67.3 % Normal 47-70 [facility] Comment on above: Performed By: #### L 500.4050, L506.1001, L503.0106, L100.0100, L501.9520 ####[facility] [address] [place], [address] Nucleated RBC (Bld) [#/Vol] 0 10*3/uL Normal 0-5 [facility] Comment on above: Performed By: #### L 500.4050, L506.1001, L503.0106, L100.0100, L501.9520 ####[facility] [address] [place], [address] Platelet mean volume (Bld) [Entitic vol] 9.7 fL Normal 6.2-12.0 [facility] Comment on above: Performed By: #### L 500.4050, L506.1001, L503.0106, L100.0100, L501.9520 ####[facility] [address] [place], [address] Platelets (Bld) [#/Vol] 352 10*3/uL Normal 150-450 [facility] Comment on above: Performed By: #### L 500.4050, L506.1001, L503.0106, L100.0100, L501.9520 ####[facility] [address] [place], [address] RBC (Bld) [#/Vol] 4.48 10*6/uL Normal 4.2-5.4 [facility] Comment on above: Performed By: #### L 500.4050, L506.1001, L503.0106, L100.0100, L501.9520 ####[facility] [address] [place], [address] RDW SD 46.4 fl High 35.1-43.9 [facility] Comment on above: Performed By: #### L 500.4050, L506.1001, L503.0106, L100.0100, L501.9520 ####[facility] [address] [place], [address] WBC (Bld) [#/Vol] 7.5 10*3/uL Normal 4.4-11.0 [facility] Comment on above: Performed By: #### L 500.4050, L506.1001, L503.0106, L100.0100, L501.9520 ####[facility] [address] [place], [address] Carbon dioxide, total [Moles /volume] in Central venous bloodOrdered By: Karuna Lim on 11-20-2024 CO2 [Moles/Vol] 22.8 mmol/L 21.0-32.0 [facility] Chloride assayOrdered By: Vazquez Lim on 11-20-2024 Chloride [Moles/Vol] 104 mmol/L 98-108 [facility] Comprehensive Metabolic Prof ilon 11-20-2024 Albumin [Mass/Vol] 3.8 g/dL Normal 3.5-5.0 [facility] Comment on above: Performed By: #### L 500.4050, L506.1001, L503.0106, L100.0100, L501.9520 ####[facility] [address] [place], [address] Albumin/Globulin [Mass ratio] 1.2 {ratio} Normal 0.9-2.4 [facility] Comment on above: Performed By: #### L 500.4050, L506.1001, L503.0106, L100.0100, L501.9520 ####[facility] [address] [place], [address] ALK PHOS 56 U/L Normal 35-104 [facility] Comment on above: Performed By: #### L 500.4050, L506.1001, L503.0106, L100.0100, L501.9520 ####[facility] [address] [place], [address] ALT [Catalytic activity/Vol] 19 U/L Normal <=34 [facility] Comment on above: Performed By: #### L 500.4050, L506.1001, L503.0106, L100.0100, L501.9520 ####[facility] [address] [place], [address] AST [Catalytic activity/Vol] 17 U/L Normal <=31 [facility] Comment on above: Result Comment: Hemo lysis present, Results??could be affected.?? Performed By: #### L 500.4050, L506.1001, L503.0106, L100.0100, L501.9520 ####[facility] [address] [place], [address] Bilirubin [Mass/Vol] 0.39 mg/dL Normal 0.00-1.30 [facility] Comment on above: Performed By: #### L 500.4050, L506.1001, L503.0106, L100.0100, L501.9520 ####[facility] [address] [place], [address] BUN/CRE 19.2 RATIO Normal 10-20 [facility] Comment on above: Performed By: #### L 500.4050, L506.1001, L503.0106, L100.0100, L501.9520 ####[facility] [address] [place], [address] Calcium [Mass/Vol] 9.4 mg/dL Normal 7.6-11.0 [facility] Comment on above: Performed By: #### L 500.4050, L506.1001, L503.0106, L100.0100, L501.9520 ####[facility] [address] [place], [address] Chloride [Moles/Vol] 104 mmol/L Normal 98-108 [facility] Comment on above: Performed By: #### L 500.4050, L506.1001, L503.0106, L100.0100, L501.9520 ####[facility] [address] [place], [address] CO2 [Moles/Vol] 22.8 mmol/L Normal 21.0-32.0 [facility] Comment on above: Performed By: #### L 500.4050, L506.1001, L503.0106, L100.0100, L501.9520 ####[facility] [address] [place], [address] Creatinine [Mass/Vol] 0.62 mg/dL Low 0.70-1.20 [facility] Comment on above: Performed By: #### L 500.4050, L506.1001, L503.0106, L100.0100, L501.9520 ####[facility] [address] [place], [address] GAP 11 Normal 5-15 [facility] Comment on above: Performed By: #### L 500.4050, L506.1001, L503.0106, L100.0100, L501.9520 ####[facility] [address] [place], [address] GFR/1.73 sq M.predicted among non-blacks MDRD (S/P/Bld) [Vol rate/Area] 124 mL/min/{1.73_m2} Normal >60 [facility] Comment on above: Result Comment: mL/m in/1.73m2 CKD-EPI Creatinine Equation (2020) Performed By: #### L 500.4050, L506.1001, L503.0106, L100.0100, L501.9520 ####[facility] [address] [place], [address] Globulin (S) [Mass/Vol] 3.1 g/dL Normal 2.2-4.2 [facility] Comment on above: Performed By: #### L 500.4050, L506.1001, L503.0106, L100.0100, L501.9520 ####[facility] [address] [place], [address] Glucose [Mass/Vol] 113 mg/dL High 70-99 [facility] Comment on above: Performed By: #### L 500.4050, L506.1001, L503.0106, L100.0100, L501.9520 ####[facility] [address] [place], [address] Potassium [Moles/Vol] 4.6 mmol/L Normal 3.3-5.1 [facility] Comment on above: Result Comment: Hemo lysis present, Results??could be affected.?? Performed By: #### L 500.4050, L506.1001, L503.0106, L100.0100, L501.9520 ####[facility] [address] [place], [address] Sodium [Moles/Vol] 138 mmol/L Normal 133-145 [facility] Comment on above: Performed By: #### L 500.4050, L506.1001, L503.0106, L100.0100, L501.9520 ####[facility] [address] [place], [address] T PROT 6.9 g/dL Normal 5.9-8.4 [facility] Comment on above: Performed By: #### L 500.4050, L506.1001, L503.0106, L100.0100, L501.9520 ####[facility] [address] [place], [place], [address] Urea nitrogen [Mass/Vol] 12 mg/dL Normal 4-19 [facility] Comment on above: Performed By: #### L 500.4050, L506.1001, L503.0106, L100.0100, L501.9520 ####[facility] [address] [place], [place], [id number] Eosinophil percentageOrdered By: Zebulun Beam on 11-20-2024 Eosinophils/100 WBC (Bld) 1.2 % 0-5 [facility] Erythrocyte distribution wid th ratioOrdered By: Zebulun Beam on 11-20-2024 Erythrocyte distribution width (RBC) [Ratio] 14.6 % 11.6-14.6 [facility] Erythrocyte distribution wid th standard deviationOrdered By: Zebulun Beam on 11-20-2024 Erythrocyte distribution width (RBC) [Ratio] 46.4 fl High 35.1-43.9 [facility] Glomerular filtration rate ( GFR) estimation/1.73 sq m using serum, plasma, or whole bOrdered By: bulun Beam on 11-20-2024 GFR/1.73 sq M.predicted among non-blacks MDRD (S/P/Bld) [Vol rate/Area] 124 mL/min/{1.73_m2} >60 [facility] Hematocrit Auto (Bld) [Volum e fraction][facility]24 Hematocrit (Bld) [Volume fraction] 38.8 % 37-47 [facility] Hemoglobin measurementOrdere d By: Zebulun Beam on 11-20-2024 Hemoglobin (Bld) [Mass/Vol] 12.3 g/dL 12.0-15.0 [facility] Immature granulocytes/100 WB C Auto (Bld)Ordered By: Zebulun Beam on 11-20-2024 Immature granulocytes/100 WBC (Bld) 0.300 % 0.0-0.9 [facility] MCV (mean corpuscular volume ) determinationOrdered By: Vazquezbulun Beam on 11-20-2024 MCV (RBC) [Entitic vol] 86.6 fL 81-99 [facility] Mean corpuscular hemoglobin (MCH) determinationOrdered By: Karuna Lim on 11-20-2024 MCH (RBC) [Entitic mass] 27.5 pg 27.0-32.0 [facility] Monocyte percentageOrdered B y: Karuna Lim on 11-20-2024 Monocytes/100 WBC (Bld) 7.6 % 0-10 [facility] Neutrophil percentageOrdered By: Karuna Lim on 11-20-2024 Neutrophils/100 WBC (Bld) 67.3 % 47-70 [facility] No Panel InformationOrdered By: Karuna Lim on 11-20-2024 17 U/L <32 [facility] Platelet countOrdered By: Vazquez Lim on 11-20-2024 Platelets (Bld) [#/Vol] 352 10*3/uL 150-450 [facility] Potassium measurement (mass/ volume)Ordered By: Karuna Lim on 11-20-2024 Potassium (Unsp spec) [Mass/Vol] 4.6 mmol/L 3.3-5.1 [facility] RBC Auto (Bld) [#/Vol]Ordere d By: Karuna Lim on 11-20-2024 RBC (Bld) [#/Vol] 4.48 10*6/uL 4.2-5.4 [facility] Serum creatinine measurement (mass/volume)Ordered By: Karuna Lim on 11-20-2024 Creatinine [Mass/Vol] 0.62 mg/dL Low 0.70-1.20 [facility] Serum globulin measurementOr dered By: Karuna Lim on 11-20-2024 Globulin (S) [Mass/Vol] 3.1 g/dL 2.2-4.2 [facility] Serum glucose measurement (m ass/volume)Ordered By: Karuna Lim on 11-20-2024 Glucose [Mass/Vol] 113 mg/dL High 70-99 [facility] Serum or plasma alanine godinez otransferase (ALT) measurementOrdered By: Karuna Lim on 11-20-2024 ALT [Catalytic activity/Vol] 19 U/L <35 [facility] Serum or plasma albumin cherelle urement (mass/volume)Ordered By: Jakin Beam on 11-20-2024 Albumin [Mass/Vol] 3.8 g/dL 3.5-5.0 [facility] Serum or plasma albumin/glob ulin mass ratioOrdered By: [facility] Be[facility] on 11-20-2024 Albumin/Globulin [Mass ratio] 1.2 {ratio} 0.9-2.4 [facility] Serum or plasma alkaline rohit sphatase measurementOrdered By: shayna Beam on 11-20-2024 ALP [Catalytic activity/Vol] 56 U/L 35-104 [facility] Serum or plasma calcium cherelle urement (mass/volume)Ordered By: Paytonluadalgisa Beam on 11-20-2024 Calcium [Mass/Vol] 9.4 mg/dL 7.6-11.0 [facility] Serum or plasma urea nitroge n measurement (mass/volume)Ordered By: Karuna Beam on 11-20-2024 Urea nitrogen [Mass/Vol] 12 mg/dL 4-19 [facility] Sodium levelOrdered By: Payton boyd Beam on 11-20-2024 Sodium [Moles/Vol] 138 mmol/L 133-145 [facility] TSH DL <= 0.005 mIU/L QnOrde red By: Karuna Beam on 11-20-2024 TSH Qn 2.510 uIU/mL 0.300-4.200 [facility] Thyroid Stim Hormone (TSH)on 11-20-2024 TSH 2.510 uIU/mL Normal 0.300-4.200 [facility] Comment on above: Performed By: #### L 500.4050, L506.1001, L503.0106, L100.0100, L501.9520 ####[facility] [address] [place], [place], [id number] Total proteinOrdered By: Juventino Lim on 11-20-2024 Protein [Mass/Vol] 6.9 g/dL 5.9-8.4 [facility] Vitamin B12on 11-20-2024 Cobalamin (Vitamin B12) [Mass/Vol] 745 pg/mL Normal 180-914 [facility] Comment on above: Performed By: #### L 500.4050, L506.1001, L503.0106, L100.0100, L501.9520 ####[facility] [address] [place], [place], [address] Vitamin B12 ser/plasOrdered By: Karuna Lim on 11-20-2024 Cobalamin (Vitamin B12) [Mass/Vol] 745 pg/mL 180-914 [facility] Vitamin D,25 Hydroxyon 11-20 Vitamin D 25-OH 26.8 ng/mL Low 30-100 [facility] Comment on above: Result Comment: Joanne min D StatusDeficiency: <20 ng/mL (50nmol/L)Insufficiency: 20-30 ng/mL (50-75 nmol/L)Sufficiency: 30-100 ng/mL (75-250 nmol/L)Toxicity: >100 ng/mL (>250 nmol/L) Performed By: #### L 500.4050, L506.1001, L503.0106, L100.0100, L501.9520 ####[facility] [address] [place], [place], [id number] White blood cell (WBC) count Ordered By: Karuna Lim on 11-20-2024 WBC (Bld) [#/Vol] 7.5 10*3/uL 4.4-11.0 [facility] Absolute lymphocyte countOrd ered By: Mau Smallwood on 11-18-2024 Lymphocytes Auto (Unsp spec) [#/Vol] 2.07 10*3/uL 0.83-4.51 [facility] Anion gap in Serum or Plasma Ordered By: Mau Smallwood on 11-18-2024 Anion gap [Moles/Vol] 13 mmol/L 5-15 [facility] Automated lymphocyte count a s percentage of total leukocytesOrdered By: Mau Smallwood on 11-18-2024 Lymphocytes/100 WBC Auto (Unsp spec) 20.8 % 19-41 [facility] BUN/creatinine ratioOrdered By: Mau Smallwood on 11-18-2024 Urea nitrogen/Creatinine [Mass ratio] 17.3 mg/mg 10-20 [facility] Basophil percentageOrdered B y: Mau Smallwood on 11-18-2024 Basophils/100 WBC (Bld) 0.5 % 0-1 [facility] Bedside Glucoseon 11-18-2024 FINGERSTICK GLU 88 mg/dL Normal 74-106 [facility] Comment on above: Result Comment: KENNY CASILLAS OF PATIENT CARE PER NURSING PROTOCOL Performed By: #### L 501.080 ####[facility] [address] [place], [address] Bilirubin, totalOrdered By: Mau Smallwood on 11-18-2024 Bilirubin [Mass/Vol] 0.38 mg/dL 0.00-1.30 [facility] CBC W/Diff, Automatedon 10-22 Absolute Lymph 2.07 X10 3/uL Normal 0.83-4.51 [facility] Comment on above: Performed By: #### L 500.4050, L100.0100 ####[facility] [address] [place], [address] Absolute Neut 7.1 X10 3/uL Normal 2.0-7.7 [facility] Comment on above: Performed By: #### L 500.4050, L100.0100 ####[facility] [address] [place], [address] Basophils/100 WBC (Bld) 0.5 % Normal 0-1 [facility] Comment on above: Performed By: #### L 500.4050, L100.0100 ####[facility] [address] [place], [address] Eosinophils/100 WBC (Bld) 1.0 % Normal 0-5 [facility] Comment on above: Performed By: #### L 500.4050, L100.0100 ####[facility] [address] [place], [address] Erythrocyte distribution width (RBC) [Ratio] 14.6 % Normal 11.6-14.6 [facility] Comment on above: Performed By: #### L 500.4050, L100.0100 ####[facility] [address] [place], [address] Hematocrit (Bld) [Volume fraction] 35.4 % Low 37-47 [facility] Comment on above: Performed By: #### L 500.4050, L100.0100 ####[facility] [address] [place], [address] Hemoglobin (Bld) [Mass/Vol] 11.7 g/dL Low 12.0-15.0 [facility] Comment on above: Performed By: #### L 500.4050, L100.0100 ####[facility] [address] [place], [address] IG% 0.300 Normal 0.0-0.9 [facility] Comment on above: Result Comment: IG% - Immature Granulocytes (promyelocytes, myelocytes andmetamyelocytes) > 1% indicates that a LEFT SHIFT is Present. Performed By: #### L 500.4050, L100.0100 ####[facility] [address] [place], [address] Lymphocytes/100 WBC (Bld) 20.8 % Normal 19-41 [facility] Comment on above: Performed By: #### L 500.4050, L100.0100 ####[facility] [address] [place], [address] MCH (RBC) [Entitic mass] 27.8 pg Normal 27.0-32.0 [facility] Comment on above: Performed By: #### L 500.4050, L100.0100 ####[facility] [address] [place], [address] MCHC (RBC) [Mass/Vol] 33.1 g/dL Normal 32-36 [facility] Comment on above: Performed By: #### L 500.4050, L100.0100 ####[facility] [address] [place], [address] MCV (RBC) [Entitic vol] 84.1 fL Normal 81-99 [facility] Comment on above: Performed By: #### L 500.4050, L100.0100 ####[facility] [address] [place], [address] Monocytes/100 WBC (Bld) 6.2 % Normal 0-10 [facility] Comment on above: Performed By: #### L 500.4050, L100.0100 ####[facility] [address] [place], [address] Neutrophils/100 WBC (Bld) 71.2 % High 47-70 [facility] Comment on above: Performed By: #### L 500.4050, L100.0100 ####[facility] [address] [place], [address] Nucleated RBC (Bld) [#/Vol] 0 10*3/uL Normal 0-5 [facility] Comment on above: Performed By: #### L 500.4050, L100.0100 ####[facility] [address] [place], [address] Platelet mean volume (Bld) [Entitic vol] 9.2 fL Normal 6.2-12.0 [facility] Comment on above: Performed By: #### L 500.4050, L100.0100 ####[facility] [address] [place], [address] Platelets (Bld) [#/Vol] 323 10*3/uL Normal 150-450 [facility] Comment on above: Performed By: #### L 500.4050, L100.0100 ####[facility] [address] [place], [address] RBC (Bld) [#/Vol] 4.21 10*6/uL Normal 4.2-5.4 [facility] Comment on above: Performed By: #### L 500.4050, L100.0100 ####[facility] [address] [place], [address] RDW SD 44.9 fl High 35.1-43.9 [facility] Comment on above: Performed By: #### L 500.4050, L100.0100 ####[facility] [address] [place], [address] WBC (Bld) [#/Vol] 10.0 10*3/uL Normal 4.4-11.0 [facility] Comment on above: Performed By: #### L 500.4050, L100.0100 ####[facility] [address] [place], [address] Carbon dioxide, total [Moles /volume] in Central venous bloodOrdered By: Mau Smallwood on 11-18-2024 CO2 [Moles/Vol] 19.0 mmol/L Low 21.0-32.0 [facility] Chloride assayOrdered By: Ug o Smallwood on 11-18-2024 Chloride [Moles/Vol] 102 mmol/L 98-108 [facility] Comprehensive Metabolic Prof ilon 11-18-2024 Albumin [Mass/Vol] 3.4 g/dL Low 3.5-5.0 [facility] Comment on above: Performed By: #### L 500.4050, L100.0100 ####[facility] [address] [place], [address] Albumin/Globulin [Mass ratio] 1.1 {ratio} Normal 0.9-2.4 [facility] Comment on above: Performed By: #### L 500.4050, L100.0100 ####[facility] [address] [place], [address] ALK PHOS 51 U/L Normal 35-104 [facility] Comment on above: Performed By: #### L 500.4050, L100.0100 ####[facility] [address] [place], [address] ALT [Catalytic activity/Vol] 17 U/L Normal <=34 [facility] Comment on above: Performed By: #### L 500.4050, L100.0100 ####[facility] [address] [place], [address] AST [Catalytic activity/Vol] 19 U/L Normal <=31 [facility] Comment on above: Result Comment: Hemo lysis present, Results??could be affected.?? Performed By: #### L 500.4050, L100.0100 ####[facility] [address] [place], [address] Bilirubin [Mass/Vol] 0.38 mg/dL Normal 0.00-1.30 [facility] Comment on above: Performed By: #### L 500.4050, L100.0100 ####[facility] [address] [place], [address] BUN/CRE 17.3 RATIO Normal 10-20 [facility] Comment on above: Performed By: #### L 500.4050, L100.0100 ####[facility] [address] [place], [address] Calcium [Mass/Vol] 9.0 mg/dL Normal 7.6-11.0 [facility] Comment on above: Performed By: #### L 500.4050, L100.0100 ####[facility] [address] [place], [address] Chloride [Moles/Vol] 102 mmol/L Normal 98-108 [facility] Comment on above: Performed By: #### L 500.4050, L100.0100 ####[facility] [address] [place], [address] CO2 [Moles/Vol] 19.0 mmol/L Low 21.0-32.0 [facility] Comment on above: Performed By: #### L 500.4050, L100.0100 ####[facility] [address] [place], [address] Creatinine [Mass/Vol] 0.64 mg/dL Low 0.70-1.20 [facility] Comment on above: Performed By: #### L 500.4050, L100.0100 ####[facility] [address] [place], [address] ECRCL 185.40 ml/min Normal 50-250 [facility] Comment on above: Performed By: #### L 500.4050, L100.0100 ####[facility] [address] [place], [address] GAP 13 Normal 5-15 [facility] Comment on above: Performed By: #### L 500.4050, L100.0100 ####[facility] [address] [place], [address] GFR/1.73 sq M.predicted among non-blacks MDRD (S/P/Bld) [Vol rate/Area] 124 mL/min/{1.73_m2} Normal >60 [facility] Comment on above: Result Comment: mL/m in/1.73m2 CKD-EPI Creatinine Equation (2020) Performed By: #### L 500.4050, L100.0100 ####[facility] [address] [place], [address] Globulin (S) [Mass/Vol] 3.1 g/dL Normal 2.2-4.2 [facility] Comment on above: Performed By: #### L 500.4050, L100.0100 ####[facility] [address] [place], [address] Glucose [Mass/Vol] 255 mg/dL High 70-99 [facility] Comment on above: Performed By: #### L 500.4050, L100.0100 ####[facility] [address] [place], [address] Potassium [Moles/Vol] 4.2 mmol/L Normal 3.3-5.1 [facility] Comment on above: Result Comment: Hemo lysis present, Results??could be affected.?? Performed By: #### L 500.4050, L100.0100 ####[facility] [address] [place], [address] Sodium [Moles/Vol] 134 mmol/L Normal 133-145 [facility] Comment on above: Performed By: #### L 500.4050, L100.0100 ####[facility] [address] [place], [address] T PROT 6.5 g/dL Normal 5.9-8.4 [facility] Comment on above: Performed By: #### L 500.4050, L100.0100 ####[facility] [address] [place], [address] Urea nitrogen [Mass/Vol] 11 mg/dL Normal 4-19 [facility] Comment on above: Performed By: #### L 500.4050, L100.0100 ####[facility] [address] [place], [address] Emergency Department Summary on 11-18-2024 Emergency Department Summary Normal [facility] Eosinophil percentageOrdered By: Mau Smallwood on 11-18-2024 Eosinophils/100 WBC (Bld) 1.0 % 0-5 [facility] Erythrocyte distribution wid th ratioOrdered By: Mau Smallwood on 11-18-2024 Erythrocyte distribution width (RBC) [Ratio] 14.6 % 11.6-14.6 [facility] Erythrocyte distribution wid th standard deviationOrdered By: Mau Smallwood on 11-18-2024 Erythrocyte distribution width (RBC) [Ratio] 44.9 fl High 35.1-43.9 [facility] Glomerular filtration rate ( GFR) estimation/1.73 sq m using serum, plasma, or whole bOrdered By: Mau Smallwood on 11-18-2024 GFR/1.73 sq M.predicted among non-blacks MDRD (S/P/Bld) [Vol rate/Area] 124 mL/min/{1.73_m2} >60 [facility] deOrdered By: Mautwin Smallwood on 11-18-2024 Glucose [Mass/Vol] 88 mg/dL 74-106 [facility] Hematocrit Auto (Bld) [Volum e fraction]Ordered By: Mautwin Smallwood on 11-18-2024 Hematocrit (Bld) [Volume fraction] 35.4 % Low 37-47 [facility] Hemoglobin measurementOrdere d By: Mautwin Smallwood on 11-18-2024 Hemoglobin (Bld) [Mass/Vol] 11.7 g/dL Low 12.0-15.0 [facility] Immature granulocytes/100 WB C Auto (Bld)Ordered By: Mautwin Smallwood on 11-18-2024 Immature granulocytes/100 WBC (Bld) 0.300 % 0.0-0.9 [facility] Lithiumon 11-18-2024 LI 0.71 mmol/L Normal 0.60-1.20 [facility] Comment on above: Performed By: #### L 501.9060 ####[facility] [address] [place], [address] MCV (mean corpuscular volume ) determinationOrdered By: Mautwin Smallwood on 11-18-2024 MCV (RBC) [Entitic vol] 84.1 fL 81-99 [facility] Mean corpuscular hemoglobin (MCH) determinationOrdered By: Mautwin Smallwood on 11-18-2024 MCH (RBC) [Entitic mass] 27.8 pg 27.0-32.0 [facility] Monocyte percentageOrdered B y: Mau Smallwood on 11-18-2024 Monocytes/100 WBC (Bld) 6.2 % 0-10 [facility] Neutrophil percentageOrdered By: Mautwin Smallwood on 11-18-2024 Neutrophils/100 WBC (Bld) 71.2 % High 47-70 [facility] No Panel InformationOrdered By: Mau Smallwood on 11-18-2024 19 U/L <32 [facility] Platelet countOrdered By: Medardo Smallwood on 11-18-2024 Platelets (Bld) [#/Vol] 323 10*3/uL 150-450 [facility] Potassium measurement (mass/ volume)Ordered By: Mautwin Smallwood on 11-18-2024 Potassium (Unsp spec) [Mass/Vol] 4.2 mmol/L 3.3-5.1 [facility] RBC Auto (Bld) [#/Vol]Ordere d By: Mau Smallwood on 11-18-2024 RBC (Bld) [#/Vol] 4.21 10*6/uL 4.2-5.4 [facility] Serum creatinine measurement (mass/volume)Ordered By: Mau Smallwood on 11-18-2024 Creatinine [Mass/Vol] 0.64 mg/dL Low 0.70-1.20 [facility] Serum globulin measurementOr dered By: Mau Smallwood on 11-18-2024 Globulin (S) [Mass/Vol] 3.1 g/dL 2.2-4.2 [facility] Serum glucose measurement (m ass/volume)Ordered By: Mau Smallwood on 11-18-2024 Glucose [Mass/Vol] 255 mg/dL High 70-99 [facility] Serum or plasma alanine godinez otransferase (ALT) measurementOrdered By: Mautwin Smallwood on 11-18-2024 ALT [Catalytic activity/Vol] 17 U/L <35 [facility] Serum or plasma albumin cherelle urement (mass/volume)Ordered By: Mau Smallwood on 11-18-2024 Albumin [Mass/Vol] 3.4 g/dL Low 3.5-5.0 [facility] Serum or plasma albumin/glob ulin mass ratioOrdered By: Mautwin Smallwood on 09-30-2025 Albumin/Globulin [Mass ratio] 1.1 {ratio} 0.9-2.4 [facility] Serum or plasma alkaline rohit sphatase measurementOrdered By: [facility] on 11-18-2024 ALP [Catalytic activity/Vol] 51 U/L 35-104 [facility] Serum or plasma calcium cherelle urement (mass/volume)Ordered By: [facility] on 11-18-2024 Calcium [Mass/Vol] 9.0 mg/dL 7.6-11.0 [facility] Serum or plasma urea nitroge n measurement (mass/volume)Ordered By: [facility] on 11-18-2024 Urea nitrogen [Mass/Vol] 11 mg/dL 4-19 [facility] Sodium levelOrdered By: [facility] on 11-18-2024 Sodium [Moles/Vol] 134 mmol/L 133-145 [facility] Total proteinOrdered By: [facility] on 11-18-2024 Protein [Mass/Vol] 6.5 g/dL 5.9-8.4 [facility] White blood cell (WBC) count Ordered By: [facility] on 11-18-2024 WBC (Bld) [#/Vol] 10.0 10*3/uL 4.4-11.0 [facility] Bacteria Ur Culton Bacteria identified Cx [...] technique or straight catheterization for???urine???collection . Normal [facility] Comment on above: Performed By: #### 6 30-4 ####[facility] LABCLIA [id number] [place] [address] [place] URINALYSIS, DIPSTICK ONLYon 11-17-2024 Bilirubin Ql (U) Negative Normal Negative [facility] Comment on above: Order Comment: Speci men Type: URINE SPECIMENOrdering Facility: [facility] Address: [address] [place] [address], [place] [address] Performed By: #### U A ####[facility] LABCLIA [id number] [address] [place] [address] [place] Clarity (Unsp spec) Clear Normal Clear [facility] Comment on above: Order Comment: Speci men Type: URINE SPECIMENOrdering Facility: [facility] Address: [address] [place] [address], [place] [address] Performed By: #### U A ####[facility] LABCLIA [id number] [address] [place] [address] [place] Color (U) Yellow Normal Yellow [facility] Comment on above: Order Comment: Speci men Type: URINE SPECIMENOrdering Facility: [facility] Address: [address] [place] [address] Performed By: #### U A ####[facility] LABCLIA [id number] [address] [place] [address] [place] Glucose Test strip (U) [Mass/Vol] Negative Normal Negative [facility] Comment on above: Order Comment: Speci men Type: URINE SPECIMENOrdering Facility: [facility] Address: [address] [place] [address], [place] [address] Performed By: #### U A ####[facility] LABCLIA [id number] [address] [place] [address] [place] Hemoglobin Ql (U) Negative Normal Negative [facility] Comment on above: Order Comment: Speci men Type: URINE SPECIMENOrdering Facility: [facility] Address: [address] [place] [address] Performed By: #### U A ####[facility] LABCLIA [id number] [address] [place] [address] [place] Ketones Ql (U) Negative Normal Negative [facility] Comment on above: Order Comment: Speci men Type: URINE SPECIMENOrdering Facility: [facility] Address: [address] [place] [address] Performed By: #### U A ####[facility] LABCLIA [id number] [place] [address] [place] Leukocyte esterase Test strip Ql (U) 1+ Abnormal Negative [facility] Comment on above: Order Comment: Speci men Type: URINE SPECIMENOrdering Facility: [facility] Address: [address] [place] [address] Performed By: #### U A ####[facility] LABCLIA [id number] [place] [address] [place] Nitrite Ql (U) Negative Normal Negative [facility] Comment on above: Order Comment: Speci men Type: URINE SPECIMENOrdering Facility: [facility] Address: [address] [place] [address] Performed By: #### U A ####[facility] LABCLIA [id number] [place] [address] [place] pH (U) 6.5 [pH] Normal 5.0-8.0 [facility] Comment on above: Order Comment: Speci men Type: URINE SPECIMENOrdering Facility: [facility] Address: [address] [place] [address] Performed By: #### U A ####[facility] LABCLIA [id number] [place] [id number] [place] Protein (U) [Mass/Vol] Negative Normal Negative [facility] Comment on above: Order Comment: Speci men Type: URINE SPECIMENOrdering Facility: [facility] Address: [address] [place] [address] Performed By: #### U A ####[facility] LABCLIA [id number] [place] [id number] [place] Specific gravity (U) [Rel density] 1.015 Normal 1.005-1.030 [facility] Comment on above: Order Comment: Speci men Type: URINE SPECIMENOrdering Facility: [facility] Address: [address], [place] [address] Performed By: #### U A ####[facility] LABCLIA [id number] [address] [address] [place] Urobilinogen Ql (U) 0.2 EU/dL Normal 0.2-1.0 EU/dL [facility] Comment on above: Order Comment: Speci men Type: URINE SPECIMENOrdering Facility: [facility] Address: [address] [facility], [place] [address] Performed By: #### U A ####[facility] LABIA [id number] [place] [id number] [place] Anion gap in Serum or Plasma Ordered By: Shawanda Ramires on 11-14-2024 Anion gap [Moles/Vol] 11 mmol/L 07-03 [facility] BUN/creatinine ratioOrdered By: Shawanda Ramires on 11-14-2024 Urea nitrogen/Creatinine [Mass ratio] 15.5 mg/mg 12-08 [facility] Basic Metabolic Profile (BMP )on 11-14-2024 BUN/CRE 15.5 RATIO Normal 12-08 [facility] Comment on above: Performed By: #### L 500.2500 ####[facility] [address] [place], [address] Calcium [Mass/Vol] 9.2 mg/dL Normal 7.6-11.0 [facility] Comment on above: Performed By: #### L 500.2500 ####[facility] [address] [place], [address] Chloride [Moles/Vol] 106 mmol/L Normal 98-108 [facility] Comment on above: Performed By: #### L 500.2500 ####[facility] [address] [place], [address] CO2 [Moles/Vol] 21.7 mmol/L Normal 21.0-32.0 [facility] Comment on above: Performed By: #### L 500.2500 ####[facility] [address] [place], [address] Creatinine [Mass/Vol] 0.74 mg/dL Normal 0.70-1.20 [facility] Comment on above: Performed By: #### L 500.2500 ####[facility] [address] [place], [address] GAP 11 Normal 5-15 [facility] Comment on above: Performed By: #### L 500.2500 ####[facility] [address] [place], [address] GFR/1.73 sq M.predicted among non-blacks MDRD (S/P/Bld) [Vol rate/Area] 113 mL/min/{1.73_m2} Normal >60 [facility] Comment on above: Result Comment: mL/m in/1.73m2 CKD-EPI Creatinine Equation (2020) Performed By: #### L 500.2500 ####[facility] [address] [place], [address] Glucose [Mass/Vol] 89 mg/dL Normal 70-99 [facility] Comment on above: Performed By: #### L 500.2500 ####[facility] [address] [place], [address] Potassium [Moles/Vol] 4.4 mmol/L Normal 3.3-5.1 [facility] Comment on above: Performed By: #### L 500.2500 ####[facility] [address] [place], [address] Sodium [Moles/Vol] 138 mmol/L Normal 133-145 [facility] Comment on above: Performed By: #### L 500.2500 ####[facility] [address] [place], [place], [address] Urea nitrogen [Mass/Vol] 12 mg/dL Normal - [facility] Comment on above: Performed By: #### L 500.2500 ####[facility] [address] [place], [place], [address] Carbon dioxide, total [Moles /volume] in Central venous bloodOrdered By: Shawanda Ramires on 11-14-2024 CO2 [Moles/Vol] 21.7 mmol/L 21.0-32.0 [facility] Chloride assayOrdered By: Kirk Ramires on 11-14-2024 Chloride [Moles/Vol] 106 mmol/L 98-108 [facility] Glomerular filtration rate ( GFR) estimation/1.73 sq m using serum, plasma, or whole bOrdered By: Shawanda Ramires on 11-14-2024 GFR/1.73 sq M.predicted among non-blacks MDRD (S/P/Bld) [Vol rate/Area] 113 mL/min/{1.73_m2} >60 [facility] Potassium measurement (mass/ volume)Ordered By: Shawanda Ramires on 11-14-2024 Potassium (Unsp spec) [Mass/Vol] 4.4 mmol/L 3.3-5.1 [facility] Serum creatinine measurement (mass/volume)Ordered By: Shawanda Ramires on 11-14-2024 Creatinine [Mass/Vol] 0.74 mg/dL 0.70-1.20 [facility] Serum glucose measurement (m ass/volume)Ordered By: Shawanda Ramires on 11-14-2024 Glucose [Mass/Vol] 89 mg/dL 70-99 [facility] Serum or plasma calcium cherelle urement (mass/volume)Ordered By: Shawanda Ramires on 11-14-2024 Calcium [Mass/Vol] 9.2 mg/dL 7.6-11.0 [facility] Serum or plasma urea nitroge n measurement (mass/volume)Ordered By: Shawanda Ramires on 11-14-2024 Urea nitrogen [Mass/Vol] 12 mg/dL -19 [facility] Sodium levelOrdered By: Danielle Ramires on 11-14-2024 Sodium [Moles/Vol] 138 mmol/L 133-145 [facility] Tilt Tableon 11-06-2024 Tilt Table Normal [facility] Bedside Glucoseon 10-28-2024 FINGERSTICK GLU 105 mg/dL Normal 74-106 [facility] Comment on above: Result Comment: KENNY CASILLAS OF PATIENT CARE PER NURSING PROTOCOL Performed By: #### L 501.080 ####[facility] [address] [place], [place], [address] ,Urineon 10-28-2024 Beta HCG ( test) Ql (U) Negative Normal [facility] Comment on above: Result Comment: Very dilute urine specimens, as indicated by a low specificgravity, may not contain patient admitting representative levels of hCG.If is still suspected, a first morning urinespecimen should be collected 48 hours later and tested. Performed By: #### L 400.7600 ####[facility] [address] [place], [place], [id number] Urine testOrdered By: Yessica Guthrie on 10-28-2024 HCG ( test) Ql (U) Negative [facility] Colonoscopy Reporton 025 Colonoscopy Report Normal [facility] Gl[facility] at [facility] deOrdered By: Andreas Oliva on 10-27-2024 Glucose [Mass/Vol] 105 mg/dL 74-106 [facility] MR/OP.PROVATon 10-27-2024 MR/OP.PROVAT Normal [facility] MR/POSTOP.ANEon 10-27-2024 MR/POSTOP.ANE Normal [facility] MR/JJBFURVS0fv 10-27-2024 MR/POSTOPAN2 Normal [facility] ,Urineon 10-27-2024 Beta HCG ( test) Ql (U) Negative Normal [facility] Comment on above: Result Comment: Very dilute urine specimens, as indicated by a low specificgravity, may not contain patient admitting representative levels of hCG.If is still suspected, a first morning urinespecimen should be collected 48 hours later and tested. Performed By: #### L 400.7600 ####[facility] [address] [place], [place], [address] Surgery Specimen Level Kev 10-27-2024 Surgery Specimen Level IV Normal [facility] Comment on above: Performed By: #### P SUIV ####[facility] [address] [place], [place], [id number] Urine testOrdered By: Mani Lozada on 10-27-2024 HCG ( test) Ql (U) Negative [facility] Comment on above: Very dilute urine sp ecimens, as indicated by a low specificgravity, may not contain patient admitting representative levels of hCG. If is still suspected, a first morning urinespecimen should be collected 48 hours later and tested. Absolute lymphocyte countOrd ered By: Yessica Guthrie on 2024 Lymphocytes Auto (Unsp spec) [#/Vol] 2.48 10*3/uL 0.83-4.51 [facility] Anion gap in Serum or Plasma Ordered By: Yessica Guthrie on 2024 Anion gap [Moles/Vol] 13 mmol/L 5- [facility] Automated lymphocyte count a s percentage of total leukocytesOrdered By: Yessica Guthrie on 2024 Lymphocytes/100 WBC Auto (Unsp spec) 30.2 % - [facility] BUN/creatinine ratioOrdered By: Yessica Guthrie on 2024 Urea nitrogen/Creatinine [Mass ratio] 15.3 mg/mg - [facility] Basic Metabolic Profile (BMP )on 2024 BUN/CRE 15.3 RATIO Normal - [facility] Comment on above: Order Comment: For t ilt table test on 10/28/24 Performed By: #### L 500.2500, L100.0100, L700.6800 ####[facility] [address] [place], [place], [id number] Calcium [Mass/Vol] 9.6 mg/dL Normal 7.6-11.0 [facility] Comment on above: Order Comment: For t ilt table test on 10/28/24 Performed By: #### L 500.2500, L100.0100, L700.6800 ####[facility] [address] [place], [address] Chloride [Moles/Vol] 106 mmol/L Normal 98-108 [facility] Comment on above: Order Comment: For t ilt table test on 10/28/24 Performed By: #### L 500.2500, L100.0100, L700.6800 ####[facility] [address] [place], [address] CO2 [Moles/Vol] 21.5 mmol/L Normal 21.0-32.0 [facility] Comment on above: Order Comment: For t ilt table test on 10/28/24 Performed By: #### L 500.2500, L100.0100, L700.6800 ####[facility] [address] [place], [address] Creatinine [Mass/Vol] 0.68 mg/dL Low 0.70-1.20 [facility] Comment on above: Order Comment: For t ilt table test on 10/28/24 Performed By: #### L 500.2500, L100.0100, L700.6800 ####[facility] [address] [place], [address] GAP 13 Normal 5-15 [facility] Comment on above: Order Comment: For t ilt table test on 10/28/24 Performed By: #### L 500.2500, L100.0100, L700.6800 ####[facility] [address] [place], [address] GFR/1.73 sq M.predicted among non-blacks MDRD (S/P/Bld) [Vol rate/Area] 122 mL/min/{1.73_m2} Normal >60 [facility] Comment on above: Order Comment: For t ilt table test on 10/28/24 Result Comment: mL/m in/1.73m2 CKD-EPI Creatinine Equation (2020) Performed By: #### L 500.2500, L100.0100, L700.6800 ####[facility] [address] [place], [address] Glucose [Mass/Vol] 83 mg/dL Normal 70-99 [facility] Comment on above: Order Comment: For t ilt table test on 10/28/24 Performed By: #### L 500.2500, L100.0100, L700.6800 ####[facility] [address] [place], [address] Potassium [Moles/Vol] 3.6 mmol/L Normal 3.3-5.1 [facility] Comment on above: Order Comment: For t ilt table test on 10/28/24 Performed By: #### L 500.2500, L100.0100, L700.6800 ####[facility] [address] [place], [address] Sodium [Moles/Vol] 141 mmol/L Normal 133-145 [facility] Comment on above: Order Comment: For t ilt table test on 10/28/24 Performed By: #### L 500.2500, L100.0100, L700.6800 ####[facility] [address] [place], [address] Urea nitrogen [Mass/Vol] 10 mg/dL Normal 4-19 [facility] Comment on above: Order Comment: For t ilt table test on 10/28/24 Performed By: #### L 500.2500, L100.0100, L700.6800 ####[facility] [address] [place], [address] Basophil percentageOrdered B y: Yessica Guthrie on 2024 Basophils/100 WBC (Bld) 0.5 % 0-1 [facility] CBC W/Diff, Automatedon Absolute Lymph 2.48 X10 3/uL Normal 0.83-4.51 [facility] Comment on above: Order Comment: Comme nts: For tilt table test on 10/28/24 Performed By: #### L 500.2500, L100.0100, L700.6800 ####[facility] [address] [place], [address] Absolute Neut 4.8 X10 3/uL Normal 2.0-7.7 [facility] Comment on above: Order Comment: Comme nts: For tilt table test on 10/28/24 Performed By: #### L 500.2500, L100.0100, L700.6800 ####[facility] [address] [place], [address] Basophils/100 WBC (Bld) 0.5 % Normal 0-1 [facility] Comment on above: Order Comment: Comme nts: For tilt table test on 10/28/24 Performed By: #### L 500.2500, L100.0100, L700.6800 ####[facility] [address] [place], [address] Eosinophils/100 WBC (Bld) 1.0 % Normal 0-5 [facility] Comment on above: Order Comment: Comme nts: For tilt table test on 10/28/24 Performed By: #### L 500.2500, L100.0100, L700.6800 ####[facility] [address] [place], [address] Erythrocyte distribution width (RBC) [Ratio] 14.5 % Normal 11.6-14.6 [facility] Comment on above: Order Comment: Comme nts: For tilt table test on 10/28/24 Performed By: #### L 500.2500, L100.0100, L700.6800 ####[facility] [address] [place], [address] Hematocrit (Bld) [Volume fraction] 38.0 % Normal 37-47 [facility] Comment on above: Order Comment: Comme nts: For tilt table test on 10/28/24 Performed By: #### L 500.2500, L100.0100, L700.6800 ####[facility] [address] [place], [address] Hemoglobin (Bld) [Mass/Vol] 12.6 g/dL Normal 12.0-15.0 [facility] Comment on above: Order Comment: Comme nts: For tilt table test on 10/28/24 Performed By: #### L 500.2500, L100.0100, L700.6800 ####[facility] [address] [place], [address] IG% 0.200 Normal 0.0-0.9 [facility] Comment on above: Order Comment: Comme nts: For tilt table test on 10/28/24 Result Comment: IG% - Immature Granulocytes (promyelocytes, myelocytes andmetamyelocytes) > 1% indicates that a LEFT SHIFT is Present. Performed By: #### L 500.2500, L100.0100, L700.6800 ####[facility] [address] [place], [address] Lymphocytes/100 WBC (Bld) 30.2 % Normal 19-41 [facility] Comment on above: Order Comment: Comme nts: For tilt table test on 10/28/24 Performed By: #### L 500.2500, L100.0100, L700.6800 ####[facility] [address] [place], [address] MCH (RBC) [Entitic mass] 27.5 pg Normal 27.0-32.0 [facility] Comment on above: Order Comment: Comme nts: For tilt table test on 10/28/24 Performed By: #### L 500.2500, L100.0100, L700.6800 ####[facility] [address] [place], [address] MCHC (RBC) [Mass/Vol] 33.2 g/dL Normal 32-36 [facility] Comment on above: Order Comment: Comme nts: For tilt table test on 10/28/24 Performed By: #### L 500.2500, L100.0100, L700.6800 ####[facility] [address] [place], [address] MCV (RBC) [Entitic vol] 83.0 fL Normal 81-99 [facility] Comment on above: Order Comment: Comme nts: For tilt table test on 10/28/24 Performed By: #### L 500.2500, L100.0100, L700.6800 ####[facility] [address] [place], [address] Monocytes/100 WBC (Bld) 9.7 % Normal 0-10 [facility] Comment on above: Order Comment: Comme nts: For tilt table test on 10/28/24 Performed By: #### L 500.2500, L100.0100, L700.6800 ####[facility] [address] [place], [address] Neutrophils/100 WBC (Bld) 58.4 % Normal 47-70 [facility] Comment on above: Order Comment: Comme nts: For tilt table test on 10/28/24 Performed By: #### L 500.2500, L100.0100, L700.6800 ####[facility] [address] [place], [address] Nucleated RBC (Bld) [#/Vol] 0 10*3/uL Normal 0-5 [facility] Comment on above: Order Comment: Comme nts: For tilt table test on 10/28/24 Performed By: #### L 500.2500, L100.0100, L700.6800 ####[facility] [address] [place], [address] Platelet mean volume (Bld) [Entitic vol] 9.4 fL Normal 6.2-12.0 [facility] Comment on above: Order Comment: Comme nts: For tilt table test on 10/28/24 Performed By: #### L 500.2500, L100.0100, L700.6800 ####[facility] [address] [place], [address] Platelets (Bld) [#/Vol] 367 10*3/uL Normal 150-450 [facility] Comment on above: Order Comment: Comme nts: For tilt table test on 10/28/24 Performed By: #### L 500.2500, L100.0100, L700.6800 ####[facility] [address] [place], [address] RBC (Bld) [#/Vol] 4.58 10*6/uL Normal 4.2-5.4 [facility] Comment on above: Order Comment: Comme nts: For tilt table test on 10/28/24 Performed By: #### L 500.2500, L100.0100, L700.6800 ####[facility] [address] [place], [address] RDW SD 43.9 fl Normal 35.1-43.9 [facility] Comment on above: Order Comment: Comme nts: For tilt table test on 10/28/24 Performed By: #### L 500.2500, L100.0100, L700.6800 ####[facility] [address] [place], [address] WBC (Bld) [#/Vol] 8.2 10*3/uL Normal 4.4-11.0 [facility] Comment on above: Order Comment: Comme nts: For tilt table test on 10/28/24 Performed By: #### L 500.2500, L100.0100, L700.6800 ####[facility] [address] [place], [address] Carbon dioxide, total [Moles /volume] in Central venous bloodOrdered By: Yessica Guthrie on 2024 CO2 [Moles/Vol] 21.5 mmol/L 21.0-32.0 [facility] Chloride assayOrdered By: Yenny Guthrie on 2024 Chloride [Moles/Vol] 106 mmol/L 98-108 [facility] Eosinophil percentageOrdered By: Yessica Guthrie on 2024 Eosinophils/100 WBC (Bld) 1.0 % 0-5 [facility] Erythrocyte distribution wid th ratioOrdered By: Yessica Guthrie on 2024 Erythrocyte distribution width (RBC) [Ratio] 14.5 % 11.6-14.6 [facility] Erythrocyte distribution wid th standard deviationOrdered By: Yessica Guthrie on 2024 Erythrocyte distribution width (RBC) [Ratio] 43.9 fl 35.1-43.9 [facility] Glomerular filtration rate ( GFR) estimation/1.73 sq m using serum, plasma, or whole bOrdered By: Yessica Guthrie on 2024 GFR/1.73 sq M.predicted among non-blacks MDRD (S/P/Bld) [Vol rate/Area] 122 mL/min/{1.73_m2} >60 [facility] Hematocrit Auto (Bld) [Volum e fraction]Ordered By: Yessica Guthrie on 2024 Hematocrit (Bld) [Volume fraction] 38.0 % 37-47 [facility] Hemoglobin measurementOrdere d By: Yessica Guthrie on 2024 Hemoglobin (Bld) [Mass/Vol] 12.6 g/dL 12.0-15.0 [facility] Immature granulocytes/100 WB C Auto (Bld)Ordered By: Yessica Guthrie on 2024 Immature granulocytes/100 WBC (Bld) 0.200 % 0.0-0.9 [facility] MCV (mean corpuscular volume ) determinationOrdered By: Yessica Guthrie on 2024 MCV (RBC) [Entitic vol] 83.0 fL 81-99 [facility] MR/PAT.ANEon 2024 MR/PAT.ANE Normal [facility] MR/PAT.ANE Normal [facility] Mean corpuscular hemoglobin (MCH) determinationOrdered By: Yessica Guthrie on 2024 MCH (RBC) [Entitic mass] 27.5 pg 27.0-32.0 [facility] Monocyte percentageOrdered B y: Yessica Guthrie on 2024 Monocytes/100 WBC (Bld) 9.7 % 0-10 [facility] Neutrophil percentageOrdered By: Yessica Guthrie on 2024 Neutrophils/100 WBC (Bld) 58.4 % 47-70 [facility] Platelet countOrdered By: Yenny Guthrie on 2024 Platelets (Bld) [#/Vol] 367 10*3/uL 150-450 [facility] Potassium measurement (mass/ volume)Ordered By: Yessica Guthrie on 2024 Potassium (Unsp spec) [Mass/Vol] 3.6 mmol/L 3.3-5.1 [facility] ,Serum,hCG Quali.on 2024 HCG, SERUM QUAL Negative Normal [facility] Comment on above: Order Comment: For t ilt table test on 10/28/24 Performed By: #### L 500.2500, L100.0100, L700.6800 ####[facility] [address] [facility] [place], [address] RBC Auto (Bld) [#/Vol]Ordere d By: Yessica Guthrie on 2024 RBC (Bld) [#/Vol] 4.58 10*6/uL 4.2-5.4 [facility] Serum beta-hCG test, qualita tiveOrdered By: Yessica Guthrie on 2024 Beta HCG ( test) Ql Negative [facility] Serum creatinine measurement (mass/volume)Ordered By: Yessica Guthrie on 2024 Creatinine [Mass/Vol] 0.68 mg/dL Low 0.70-1.20 [facility] Serum glucose measurement (m ass/volume)Ordered By: Yessica Guthrie on 2024 Glucose [Mass/Vol] 83 mg/dL 70-99 [facility] Serum or plasma calcium cherelle urement (mass/volume)Ordered By: Yessica Guthrie on 2024 Calcium [Mass/Vol] 9.6 mg/dL 7.6-11.0 [facility] Serum or plasma urea nitroge n measurement (mass/volume)Ordered By: Yessica Guthrie on 2024 Urea nitrogen [Mass/Vol] 10 mg/dL 4-19 [facility] Sodium levelOrdered By: Leander Guthrie on 2024 Sodium [Moles/Vol] 141 mmol/L 133-145 [facility] White blood cell (WBC) count Ordered By: Yessica Guthrie on 2024 WBC (Bld) [#/Vol] 8.2 10*3/uL 4.4-11.0 [facility] CNOVon 10-16-2024 CNOV Office Visit (ENWSTR ) -------- MARION GUTIERREZ ([id number]) 1995 F Date Time Provider Department 10/16/24 10:20 AM JEY JOHNSON ENLISATR During your visit today, we recorded the following information about you: Temperature Pulse Respiration Blood pressure 98 degrees 78/minute 22/minute 120/84 Weight Last Period 131.9 kg 09/11/24 Jey Johnson MD 10/19/2024 5:36 PM Addendum Endocrinology and Metabolism Paulina Follow up note Chief complaint: Evaluation of [...] She is seeing GI, Dr. Oliva at [facility], with recommendations for possible initiation of GLP-1 [...] by mout (more content not 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 Normal [facility] Absolute lymphocyte countOrd ered By: Mazin Wilkinson on 09-27-2024 Lymphocytes Auto (Unsp spec) [#/Vol] 1.38 10*3/uL 0.83-4.51 [facility] Absolute neutrophil countOrd ered By: Mazin Wilkinson on 09-27-2024 Neutrophils (Bld) [#/Vol] 3.7 10*3/uL 2.0-7.7 [facility] Alcohol, Blood (Medical)-Ser umon 09-27-2024 SERUM ETOH < 10.1 Normal <=10.0 [facility] Comment on above: Result Comment: This test is for medical purposes only. The legaldefinition of intoxication varies according to local law. Performed By: #### L 700.6800, L100.0100, L505.5000, L501.9100, L500.4050 ####[facility] [address] [place], [place], [id number] Amphetamine detection with 1 000 ng/mL as cutoffOrdered By: Mazin Wilkinson on 09-27-2024 Amphetamines Screen method >1000 ng/mL Ql (U) Negative < 200 ng/mL [facility] Anion gap in Serum or Plasma Ordered By: Mazin Wilkinson on 09-27-2024 Anion gap [Moles/Vol] 13 mmol/L 5-15 [facility] Automated lymphocyte count a s percentage of total leukocytesOrdered By: Mazin Wilkinson on 09-27-2024 Lymphocytes/100 WBC Auto (Unsp spec) 24.2 % 19-41 [facility] BUN/creatinine ratioOrdered By: Mazin Wilkinson on 09-27-2024 Urea nitrogen/Creatinine [Mass ratio] 13.6 mg/mg 10-20 [facility] Basophil percentageOrdered B y: Mazin Wilkinson on 09-27-2024 Basophils/100 WBC (Bld) 0.7 % 0-1 [facility] Bilirubin, totalOrdered By: Mazin Wilkinson on 09-27-2024 Bilirubin [Mass/Vol] 0.36 mg/dL 0.00-1.30 [facility] CBC W/Diff, Automatedon Absolute Lymph 1.38 X10 3/uL Normal 0.83-4.51 [facility] Comment on above: Performed By: #### L 700.6800, L100.0100, L505.5000, L501.9100, L500.4050 ####[facility] [address] [place], [address] Absolute Neut 3.7 X10 3/uL Normal 2.0-7.7 [facility] Comment on above: Performed By: #### L 700.6800, L100.0100, L505.5000, L501.9100, L500.4050 ####[facility] [address] [place], [address] Basophils/100 WBC (Bld) 0.7 % Normal 0-1 [facility] Comment on above: Performed By: #### L 700.6800, L100.0100, L505.5000, L501.9100, L500.4050 ####[facility] [address] [place], [address] Eosinophils/100 WBC (Bld) 1.4 % Normal 0-5 [facility] Comment on above: Performed By: #### L 700.6800, L100.0100, L505.5000, L501.9100, L500.4050 ####[facility] [address] [place], [address] Erythrocyte distribution width (RBC) [Ratio] 13.9 % Normal 11.6-14.6 [facility] Comment on above: Performed By: #### L 700.6800, L100.0100, L505.5000, L501.9100, L500.4050 ####[facility] [address] [place], [address] Hematocrit (Bld) [Volume fraction] 41.1 % Normal 37-47 [facility] Comment on above: Performed By: #### L 700.6800, L100.0100, L505.5000, L501.9100, L500.4050 ####[facility] [address] [place], [address] Hemoglobin (Bld) [Mass/Vol] 13.5 g/dL Normal 12.0-15.0 [facility] Comment on above: Performed By: #### L 700.6800, L100.0100, L505.5000, L501.9100, L500.4050 ####[facility] [address] [place], [address] IG% 0.200 Normal 0.0-0.9 [facility] Comment on above: Result Comment: IG% - Immature Granulocytes (promyelocytes, myelocytes andmetamyelocytes) > 1% indicates that a LEFT SHIFT is Present. Performed By: #### L 700.6800, L100.0100, L505.5000, L501.9100, L500.4050 ####[facility] [address] [place], [address] Lymphocytes/100 WBC (Bld) 24.2 % Normal 19-41 [facility] Comment on above: Performed By: #### L 700.6800, L100.0100, L505.5000, L501.9100, L500.4050 ####[facility] [address] [place], [address] MCH (RBC) [Entitic mass] 27.1 pg Normal 27.0-32.0 [facility] Comment on above: Performed By: #### L 700.6800, L100.0100, L505.5000, L501.9100, L500.4050 ####[facility] [address] [place], [address] MCHC (RBC) [Mass/Vol] 32.8 g/dL Normal 32-36 [facility] Comment on above: Performed By: #### L 700.6800, L100.0100, L505.5000, L501.9100, L500.4050 ####[facility] [address] [place], [address] MCV (RBC) [Entitic vol] 82.5 fL Normal 81-99 [facility] Comment on above: Performed By: #### L 700.6800, L100.0100, L505.5000, L501.9100, L500.4050 ####[facility] [address] [place], [address] Monocytes/100 WBC (Bld) 9.3 % Normal 0-10 [facility] Comment on above: Performed By: #### L 700.6800, L100.0100, L505.5000, L501.9100, L500.4050 ####[facility] [address] [place], [address] Neutrophils/100 WBC (Bld) 64.2 % Normal 47-70 [facility] Comment on above: Performed By: #### L 700.6800, L100.0100, L505.5000, L501.9100, L500.4050 ####[facility] [address] [place], [address] Nucleated RBC (Bld) [#/Vol] 0 10*3/uL Normal 0-5 [facility] Comment on above: Performed By: #### L 700.6800, L100.0100, L505.5000, L501.9100, L500.4050 ####[facility] [address] [place], [address] Platelet mean volume (Bld) [Entitic vol] 9.0 fL Normal 6.2-12.0 [facility] Comment on above: Performed By: #### L 700.6800, L100.0100, L505.5000, L501.9100, L500.4050 ####[facility] [address] [place], [address] Platelets (Bld) [#/Vol] 349 10*3/uL Normal 150-450 [facility] Comment on above: Performed By: #### L 700.6800, L100.0100, L505.5000, L501.9100, L500.4050 ####[facility] [address] [place], [address] RBC (Bld) [#/Vol] 4.98 10*6/uL Normal 4.2-5.4 [facility] Comment on above: Performed By: #### L 700.6800, L100.0100, L505.5000, L501.9100, L500.4050 ####[facility] [address] [place], [address] RDW SD 41.9 fl Normal 35.1-43.9 [facility] Comment on above: Performed By: #### L 700.6800, L100.0100, L505.5000, L501.9100, L500.4050 ####[facility] [address] [place], [address] WBC (Bld) [#/Vol] 5.7 10*3/uL Normal 4.4-11.0 [facility] Comment on above: Performed By: #### L 700.6800, L100.0100, L505.5000, L501.9100, L500.4050 ####[facility] [address] [place], [address] Carbon dioxide, total [Moles /volume] in Central venous bloodOrdered By: Mazin Wilkinson on 09-27-2024 CO2 [Moles/Vol] 20.7 mmol/L Low 21.0-32.0 [facility] Chloride assayOrdered By: Ran Wilkinson on 09-27-2024 Chloride [Moles/Vol] 107 mmol/L 98-108 [facility] Comprehensive Metabolic Prof ilon 09-27-2024 Albumin [Mass/Vol] 4.0 g/dL Normal 3.5-5.0 [facility] Comment on above: Performed By: #### L 700.6800, L100.0100, L505.5000, L501.9100, L500.4050 ####[facility] [address] [place], [address] Albumin/Globulin [Mass ratio] 1.3 {ratio} Normal 0.9-2.4 [facility] Comment on above: Performed By: #### L 700.6800, L100.0100, L505.5000, L501.9100, L500.4050 ####[facility] [address] [place], [address] ALK PHOS 71 U/L Normal 35-104 [facility] Comment on above: Performed By: #### L 700.6800, L100.0100, L505.5000, L501.9100, L500.4050 ####[facility] [address] [place], [address] ALT [Catalytic activity/Vol] 82 U/L High <=34 [facility] Comment on above: Performed By: #### L 700.6800, L100.0100, L505.5000, L501.9100, L500.4050 ####[facility] [address] [place], [address] AST [Catalytic activity/Vol] 53 U/L High <=31 [facility] Comment on above: Performed By: #### L 700.6800, L100.0100, L505.5000, L501.9100, L500.4050 ####[facility] [facility] [address] [place], [address] Bilirubin [Mass/Vol] 0.36 mg/dL Normal 0.00-1.30 [facility] Comment on above: Performed By: #### L 700.6800, L100.0100, L505.5000, L501.9100, L500.4050 ####[facility] [address] [place], [address] BUN/CRE 13.6 RATIO Normal 10-20 [facility] Comment on above: Performed By: #### L 700.6800, L100.0100, L505.5000, L501.9100, L500.4050 ####[facility] [address] [place], [address] Calcium [Mass/Vol] 9.8 mg/dL Normal 7.6-11.0 [facility] Comment on above: Performed By: #### L 700.6800, L100.0100, L505.5000, L501.9100, L500.4050 ####[facility] [address] [place], [address] Chloride [Moles/Vol] 107 mmol/L Normal 98-108 [facility] Comment on above: Performed By: #### L 700.6800, L100.0100, L505.5000, L501.9100, L500.4050 ####[facility] [address] [place], [address] CO2 [Moles/Vol] 20.7 mmol/L Low 21.0-32.0 [facility] Comment on above: Performed By: #### L 700.6800, L100.0100, L505.5000, L501.9100, L500.4050 ####[facility] [address] [place], [address] Creatinine [Mass/Vol] 0.76 mg/dL Normal 0.70-1.20 [facility] Comment on above: Performed By: #### L 700.6800, L100.0100, L505.5000, L501.9100, L500.4050 ####[facility] [address] [place], [address] ECRCL 154.37 ml/min Normal 50-250 [facility] Comment on above: Performed By: #### L 700.6800, L100.0100, L505.5000, L501.9100, L500.4050 ####[facility] [address] [place], [address] GAP 13 Normal 5-15 [facility] Comment on above: Performed By: #### L 700.6800, L100.0100, L505.5000, L501.9100, L500.4050 ####[facility] [address] [place], [address] GFR/1.73 sq M.predicted among non-blacks MDRD (S/P/Bld) [Vol rate/Area] 110 mL/min/{1.73_m2} Normal >60 [facility] Comment on above: Result Comment: mL/m in/1.73m2 CKD-EPI Creatinine Equation (2020) Performed By: #### L 700.6800, L100.0100, L505.5000, L501.9100, L500.4050 ####[facility] [address] [place], [address] Globulin (S) [Mass/Vol] 3.1 g/dL Normal 2.2-4.2 [facility] Comment on above: Performed By: #### L 700.6800, L100.0100, L505.5000, L501.9100, L500.4050 ####[facility] [address] [place], [address] Glucose [Mass/Vol] 130 mg/dL High 70-99 [facility] Comment on above: Performed By: #### L 700.6800, L100.0100, L505.5000, L501.9100, L500.4050 ####[facility] [address] [place], [address] Potassium [Moles/Vol] 3.3 mmol/L Normal 3.3-5.1 [facility] Comment on above: Performed By: #### L 700.6800, L100.0100, L505.5000, L501.9100, L500.4050 ####[facility] [address] [place], [address] Sodium [Moles/Vol] 141 mmol/L Normal 133-145 [facility] Comment on above: Performed By: #### L 700.6800, L100.0100, L505.5000, L501.9100, L500.4050 ####[facility] [address] [place], [place], [address] T PROT 7.2 g/dL Normal 5.9-8.4 [facility] Comment on above: Performed By: #### L 700.6800, L100.0100, L505.5000, L501.9100, L500.4050 ####[facility] [address] [place], [address] Urea nitrogen [Mass/Vol] 10 mg/dL Normal 4-19 [facility] Comment on above: Performed By: #### L 700.6800, L100.0100, L505.5000, L501.9100, L500.4050 ####[facility] [address] [place], [place], [id number] Emergency Department Summary on 09-27-2024 Emergency Department Summary Normal [facility] Eosinophil percentageOrdered By: Mazin Wilkinson on 09-27-2024 Eosinophils/100 WBC (Bld) 1.4 % 0-5 [facility] Erythrocyte distribution wid th ratioOrdered By: Mazin Wilkinson on 09-27-2024 Erythrocyte distribution width (RBC) [Ratio] 13.9 % 11.6-14.6 [facility] Erythrocyte distribution wid th standard deviationOrdered By: Mazin Wilkinson on 09-27-2024 Erythrocyte distribution width (RBC) [Ratio] 41.9 fl 35.1-43.9 [facility] Glomerular filtration rate ( GFR) estimation/1.73 sq m using serum, plasma, or whole bOrdered By: Mazin Wilkinson on 09-27-2024 GFR/1.73 sq M.predicted among non-blacks MDRD (S/P/Bld) [Vol rate/Area] 110 mL/min/{1.73_m2} >60 [facility] Comment on above: mL/min/1.73m2 CKD-EP I Creatinine Equation (2020) Hematocrit Auto (Bld) [Volum e fraction]Ordered By: Mazin Wilkinson on 09-27-2024 Hematocrit (Bld) [Volume fraction] 41.1 % 37-47 [facility] Hemoglobin measurementOrdere d By: Mazin Wilkinson on 09-27-2024 Hemoglobin (Bld) [Mass/Vol] 13.5 g/dL 12.0-15.0 [facility] Immature granulocytes/100 WB C Auto (Bld)Ordered By: Mazin Wilkinson on 09-27-2024 Immature granulocytes/100 WBC (Bld) 0.200 % 0.0-0.9 [facility] Comment on above: IG% - Immature Granu locytes (promyelocytes, myelocytes and metamyelocytes) > 1% indicates that a LEFT SHIFT is Present. Laboratory - Chemistry and C hemistry - challengeOrdered By: Mazin Wilkinson on 09-27-2024 AST [Catalytic activity/Vol] 53 U/L High <32 [facility] MCV (mean corpuscular volume ) determinationOrdered By: Mazin Wilkinson on 09-27-2024 MCV (RBC) [Entitic vol] 82.5 fL 81-99 [facility] Mean corpuscular hemoglobin (MCH) determinationOrdered By: Mazin Wilkinson on 09-27-2024 MCH (RBC) [Entitic mass] 27.1 pg 27.0-32.0 [facility] Mean corpuscular hemoglobin concentration (MCHC) determinationOrdered By: Mazin Wilkinson on 09-27-2024 MCHC (RBC) [Mass/Vol] 32.8 g/dL 32-36 [facility] Mean platelet volume determi nationOrdered By: Mazin Wilkinson on 09-27-2024 Platelet mean volume (Bld) [Entitic vol] 9.0 fL 6.2-12.0 [facility] Monocyte percentageOrdered B y: Mazin Wilkinson on 09-27-2024 Monocytes/100 WBC (Bld) 9.3 % 0-10 [facility] Neutrophil percentageOrdered By: Mazin Wilkinson on 09-27-2024 Neutrophils/100 WBC (Bld) 64.2 % 47-70 [facility] No Panel InformationOrdered By: Mazin Wilkinson on 09-27-2024 Urine Buprenorphine Qualitative Negative < 200 ng/mL [facility] Urine Oxycodone Screen Negative < 100 ng/mL [facility] Negative < 200 ng/mL [facility] 53 U/L High <32 [facility] Nucleated red blood cell per centageOrdered By: Mazin Wilkinson on 09-27-2024 Nucleated RBC/100 WBC (Bld) [Ratio] 0 % 0-5 [facility] Platelet countOrdered By: Ran Wilkinson on 09-27-2024 Platelets (Bld) [#/Vol] 349 10*3/uL 150-450 [facility] Potassium measurement (mass/ volume)Ordered By: Mazin Wilkinson on 09-27-2024 Potassium (Unsp spec) [Mass/Vol] 3.3 mmol/L 3.3-5.1 [facility] ,Serum,hCG Quali.on 09-27-2024 HCG, SERUM QUAL Negative Normal [facility] Comment on above: Performed By: #### L 700.6800, L100.0100, L505.5000, L501.9100, L500.4050 ####[facility] [address] [place], [place], [id number] Quantitative urine opiates m easurementOrdered By: Mazin Wilkinson on 09-27-2024 Opiates Ql (U) Negative < 300 ng/mL [facility] RBC Auto (Bld) [#/Vol]Ordere d By: Mazin Wilkinson on 09-27-2024 RBC (Bld) [#/Vol] 4.98 10*6/uL 4.2-5.4 [facility] Screening urine fentanyl burton surementOrdered By: Mazin Wilkinson on 09-27-2024 fentaNYL Screen Ql (U) Negative [facility] Serum beta-hCG test, qualita tiveOrdered By: Mazin Wilkinson on 09-27-2024 Beta HCG ( test) Ql Negative [facility] Serum creatinine measurement (mass/volume)Ordered By: Mazin Wilkinson on 09-27-2024 Creatinine [Mass/Vol] 0.76 mg/dL 0.70-1.20 [facility] Serum globulin measurementOr dered By: Mazin Wilkinson on 09-27-2024 Globulin (S) [Mass/Vol] 3.1 g/dL 2.2-4.2 [facility] Serum glucose measurement (m ass/volume)Ordered By: Mazin Wilkinson on 09-27-2024 Glucose [Mass/Vol] 130 mg/dL High 70-99 [facility] Serum or plasma alanine godinez otransferase (ALT) measurementOrdered By: Mazin Wilkinson on 09-27-2024 ALT [Catalytic activity/Vol] 82 U/L High <35 [facility] Serum or plasma albumin cherelle urement (mass/volume)Ordered By: Mazin Wilkinson on 09-27-2024 Albumin [Mass/Vol] 4.0 g/dL 3.5-5.0 [facility] Serum or plasma albumin/glob ulin mass ratioOrdered By: Mazin Wilkinson on 09-27-2024 Albumin/Globulin [Mass ratio] 1.3 {ratio} 0.9-2.4 [facility] Serum or plasma alkaline rohit sphatase measurementOrdered By: Mazin Wilkinson on 09-27-2024 ALP [Catalytic activity/Vol] 71 U/L 35-104 [facility] Serum or plasma calcium cherelle urement (mass/volume)Ordered By: Mazin Wilkinson on 09-27-2024 Calcium [Mass/Vol] 9.8 mg/dL 7.6-11.0 [facility] Serum or plasma ethanol cherelle urement (mass/volume)Ordered By: Mazin iWlkinson on 09-27-2024 Ethanol [Mass/Vol] mg/dL <10.1 [facility] Comment on above: This test is for med ical purposes only. The legal definition of intoxication varies according to local law. Serum or plasma urea nitroge n measurement (mass/volume)Ordered By: Mazin Wilkinson on 09-27-2024 Urea nitrogen [Mass/Vol] 10 mg/dL 4-19 [facility] Sodium levelOrdered By: Mazin Wilkinson on 09-27-2024 Sodium [Moles/Vol] 141 mmol/L 133-145 [facility] Total proteinOrdered By: Damian Wilkinson on 09-27-2024 Protein [Mass/Vol] 7.2 g/dL 5.9-8.4 [facility] Urine Drug Screen (VISTA)on 09-27-2024 AMPHETAMINES Negative Normal <1000 ng/mL [facility] Comment on above: Performed By: #### L 700.6800, L100.0100, L505.5000, L501.9100, L500.4050 ####[facility] [address] [place], [address] BARBITIURATES Negative Normal < 200 ng/mL [facility] Comment on above: Performed By: #### L 700.6800, L100.0100, L505.5000, L501.9100, L500.4050 ####[facility] [address] [place], [place], [phone] BENZODIAZIPINE Negative Normal < 200 ng/mL [facility] Comment on above: Performed By: #### L 700.6800, L100.0100, L505.5000, L501.9100, L500.4050 ####[facility] [address] [place], [place], [phone] BUP Ur Drug Scr Negative Normal < 200 ng/mL [facility] Comment on above: Performed By: #### L 700.6800, L100.0100, L505.5000, L501.9100, L500.4050 ####[facility] [address] [place], [place], [phone] COCAINE Negative Normal < 300 ng/mL [facility] Comment on above: Performed By: #### L 700.6800, L100.0100, L505.5000, L501.9100, L500.4050 ####[facility] [address] [place], [place], [phone] Fentanyl Negative Normal [facility] Comment on above: Performed By: #### L 700.6800, L100.0100, L505.5000, L501.9100, L500.4050 ####[facility] [address] [place], [place], [phone] METHADONE Negative Normal < 300 ng/mL [facility] Comment on above: Performed By: #### L 700.6800, L100.0100, L505.5000, L501.9100, L500.4050 ####[facility] [address] [place], [address] OPIATES Negative Normal < 300 ng/mL [facility] Comment on above: Performed By: #### L 700.6800, L100.0100, L505.5000, L501.9100, L500.4050 ####[facility] [address] [place], [address] OXYCODONE Negative Normal < 100 ng/mL [facility] Comment on above: Performed By: #### L 700.6800, L100.0100, L505.5000, L501.9100, L500.4050 ####[facility] [address] [place], [address] PCP Negative Normal < 25 ng/mL [facility] Comment on above: Performed By: #### L 700.6800, L100.0100, L505.5000, L501.9100, L500.4050 ####[facility] [address] [place], [address] THC Negative Normal < 50 ng/mL [facility] Comment on above: Performed By: #### L 700.6800, L100.0100, L505.5000, L501.9100, L500.4050 ####[facility] [address] [place], [address] Urine benzodiazepine levelOr dered By: Mazin Wilkinson on 09-27-2024 Benzodiazepines Ql (U) Negative < 200 ng/mL [facility] Urine cocaine levelOrdered B y: Mazin Wilkinson on 09-27-2024 Cocaine Ql (U) Negative < 300 ng/mL [facility] Urine fmwoa-5-nvuflrgbjipprv abinol (THC) measurementOrdered By: Mazin Wilkinson on 09-27-2024 Cannabinoids Screen Ql (U) Negative < 50 ng/mL [facility] Urine phencyclidine (PCP) de tectionOrdered By: Mazin Wilkinson on 09-27-2024 Phencyclidine Ql (U) Negative < 25 ng/mL [facility] White blood cell (WBC) count Ordered By: Mazin Wilkinson on 09-27-2024 WBC (Bld) [#/Vol] 5.7 10*3/uL 4.4-11.0 [facility] Gastroenterology Visit Repor ton 09-25-2024 Gastroenterology Visit Report Normal [facility] Absolute lymphocyte countOrd ered By: India Crawford on 09-21-2024 Lymphocytes Auto (Unsp spec) [#/Vol] 2.56 10*3/uL 0.83-4.51 [facility] Absolute neutrophil countOrd ered By: India Crawford on 09-21-2024 Neutrophils (Bld) [#/Vol] 3.5 10*3/uL 2.0-7.7 [facility] Anion gap in Serum or Plasma Ordered By: India Crawford on 09-21-2024 Anion gap [Moles/Vol] 13 mmol/L 5-15 [facility] Automated lymphocyte count a s percentage of total leukocytesOrdered By: India Crawford on 09-21-2024 Lymphocytes/100 WBC Auto (Unsp spec) 37.3 % 19-41 [facility] BUN/creatinine ratioOrdered By: India Crawford on 09-21-2024 Urea nitrogen/Creatinine [Mass ratio] 16.6 mg/mg 10-20 [facility] Basophil percentageOrdered B y: India Crawford on 09-21-2024 Basophils/100 WBC (Bld) 0.6 % 0-1 [facility] Bilirubin, totalOrdered By: India Crawford on 09-21-2024 Bilirubin [Mass/Vol] 0.38 mg/dL 0.00-1.30 [facility] CBC W/Diff, Automatedon Absolute Lymph 2.56 X10 3/uL Normal 0.83-4.51 [facility] Comment on above: Performed By: #### L 100.0100 ####[facility] [address] [place], [address] Absolute Neut 3.5 X10 3/uL Normal 2.0-7.7 [facility] Comment on above: Performed By: #### L 100.0100 ####[facility] [address] [place], [address] Basophils/100 WBC (Bld) 0.6 % Normal 0-1 [facility] Comment on above: Performed By: #### L 100.0100 ####[facility] [address] [place], [address] Eosinophils/100 WBC (Bld) 1.6 % Normal 0-5 [facility] Comment on above: Performed By: #### L 100.0100 ####[facility] [address] [place], [address] Erythrocyte distribution width (RBC) [Ratio] 14.2 % Normal 11.6-14.6 [facility] Comment on above: Performed By: #### L 100.0100 ####[facility] [address] [place], [address] Hematocrit (Bld) [Volume fraction] 39.6 % Normal 37-47 [facility] Comment on above: Performed By: #### L 100.0100 ####[facility] [address] [place], [address] Hemoglobin (Bld) [Mass/Vol] 12.6 g/dL Normal 12.0-15.0 [facility] Comment on above: Performed By: #### L 100.0100 ####[facility] [address] [place], [address] IG% 0.100 Normal 0.0-0.9 [facility] Comment on above: Result Comment: IG% - Immature Granulocytes (promyelocytes, myelocytes andmetamyelocytes) > 1% indicates that a LEFT SHIFT is Present. Performed By: #### L 100.0100 ####[facility] [address] [place], [address] Lymphocytes/100 WBC (Bld) 37.3 % Normal 19-41 [facility] Comment on above: Performed By: #### L 100.0100 ####[facility] [address] [place], [address] MCH (RBC) [Entitic mass] 26.7 pg Low 27.0-32.0 [facility] Comment on above: Performed By: #### L 100.0100 ####[facility] [address] [place], [address] MCHC (RBC) [Mass/Vol] 31.8 g/dL Low 32-36 [facility] Comment on above: Performed By: #### L 100.0100 ####[facility] [address] [place], [address] MCV (RBC) [Entitic vol] 83.9 fL Normal 81-99 [facility] Comment on above: Performed By: #### L 100.0100 ####[facility] [address] [place], [address] Monocytes/100 WBC (Bld) 9.8 % Normal 0-10 [facility] Comment on above: Performed By: #### L 100.0100 ####[facility] [address] [place], [address] Neutrophils/100 WBC (Bld) 50.6 % Normal 47-70 [facility] Comment on above: Performed By: #### L 100.0100 ####[facility] [address] [place], [address] Nucleated RBC (Bld) [#/Vol] 0 10*3/uL Normal 0-5 [facility] Comment on above: Performed By: #### L 100.0100 ####[facility] [address] [place], [address] Platelet mean volume (Bld) [Entitic vol] 9.1 fL Normal 6.2-12.0 [facility] Comment on above: Performed By: #### L 100.0100 ####[facility] [address] [place], [address] Platelets (Bld) [#/Vol] 376 10*3/uL Normal 150-450 [facility] Comment on above: Performed By: #### L 100.0100 ####[facility] [address] [place], [address] RBC (Bld) [#/Vol] 4.72 10*6/uL Normal 4.2-5.4 [facility] Comment on above: Performed By: #### L 100.0100 ####[facility] [address] [place], [address] RDW SD 43.8 fl Normal 35.1-43.9 [facility] Comment on above: Performed By: #### L 100.0100 ####[facility] [address] [place], [address] WBC (Bld) [#/Vol] 6.9 10*3/uL Normal 4.4-11.0 [facility] Comment on above: Performed By: #### L 100.0100 ####[facility] [address] [place], [address] CDIFF (PCR)on 09-21-2024 CDIFF Normal [facility] Comment on above: Performed By: #### M 100.6796 ####[facility] [address] [place], [address] Carbon dioxide, total [Moles /volume] in Central venous bloodOrdered By: India Crawford on 09-21-2024 CO2 [Moles/Vol] 21.8 mmol/L 21.0-32.0 [facility] Chloride assayOrdered By: Shivani Crawford on 09-21-2024 Chloride [Moles/Vol] 105 mmol/L 98-108 [facility] Clostridium difficile detect ion by polymerase chain reactionOrdered By: India Crawford on 09-21-2024 C. difficile DNA DAMARIS+probe Ql (Unsp spec) [facility] C. difficile DNA DAMARIS+probe Ql (Unsp spec) [facility] Comprehensive Metabolic Prof ilon 09-21-2024 Albumin [Mass/Vol] 4.0 g/dL Normal 3.5-5.0 [facility] Comment on above: Performed By: #### L 500.4050 ####[facility] [address] [place], [address] Albumin/Globulin [Mass ratio] 1.3 {ratio} Normal 0.9-2.4 [facility] Comment on above: Performed By: #### L 500.4050 ####[facility] [address] [place], [address] ALK PHOS 65 U/L Normal 35-104 [facility] Comment on above: Performed By: #### L 500.4050 ####[facility] [address] [place], [address] ALT [Catalytic activity/Vol] 57 U/L High <=34 [facility] Comment on above: Performed By: #### L 500.4050 ####[facility] [address] [place], [address] AST [Catalytic activity/Vol] 51 U/L High <=31 [facility] Comment on above: Performed By: #### L 500.4050 ####[facility] [address] [place], [address] Bilirubin [Mass/Vol] 0.38 mg/dL Normal 0.00-1.30 [facility] Comment on above: Performed By: #### L 500.4050 ####[facility] [address] [place], [address] BUN/CRE 16.6 RATIO Normal 10-20 [facility] Comment on above: Performed By: #### L 500.4050 ####[facility] [address] [place], [address] Calcium [Mass/Vol] 9.2 mg/dL Normal 7.6-11.0 [facility] Comment on above: Performed By: #### L 500.4050 ####[facility] [address] [place], [address] Chloride [Moles/Vol] 105 mmol/L Normal 98-108 [facility] Comment on above: Performed By: #### L 500.4050 ####[facility] [address] [place], [address] CO2 [Moles/Vol] 21.8 mmol/L Normal 21.0-32.0 [facility] Comment on above: Performed By: #### L 500.4050 ####[facility] [address] [place], [address] Creatinine [Mass/Vol] 0.60 mg/dL Low 0.70-1.20 [facility] Comment on above: Performed By: #### L 500.4050 ####[facility] [address] [place], [address] ECRCL 196.90 ml/min Normal 50-250 [facility] Comment on above: Performed By: #### L 500.4050 ####[facility] [address] [place], [address] GAP 13 Normal 5-15 [facility] Comment on above: Performed By: #### L 500.4050 ####[facility] [address] [place], [address] GFR/1.73 sq M.predicted among non-blacks MDRD (S/P/Bld) [Vol rate/Area] 126 mL/min/{1.73_m2} Normal >60 [facility] Comment on above: Result Comment: mL/m in/1.73m2 CKD-EPI Creatinine Equation (2020) Performed By: #### L 500.4050 ####[facility] [address] [place], [address] Globulin (S) [Mass/Vol] 3.0 g/dL Normal 2.2-4.2 [facility] Comment on above: Performed By: #### L 500.4050 ####[facility] [address] [place], [address] Glucose [Mass/Vol] 94 mg/dL Normal 70-99 [facility] Comment on above: Performed By: #### L 500.4050 ####[facility] [address] [place], [address] Potassium [Moles/Vol] 3.8 mmol/L Normal 3.3-5.1 [facility] Comment on above: Performed By: #### L 500.4050 ####[facility] [address] [place], [address] Sodium [Moles/Vol] 140 mmol/L Normal 133-145 [facility] Comment on above: Performed By: #### L 500.4050 ####[facility] [address] [place], [address] T PROT 7.0 g/dL Normal 5.9-8.4 [facility] Comment on above: Performed By: #### L 500.4050 ####[facility] [address] [place], [address] Urea nitrogen [Mass/Vol] 10 mg/dL Normal 4-19 [facility] Comment on above: Performed By: #### L 500.4050 ####[facility] [address] [place], [address] Emergency Department Summary on 09-21-2024 Emergency Department Summary Normal [facility] Eosinophil percentageOrdered By: India Crawford on 09-21-2024 Eosinophils/100 WBC (Bld) 1.6 % 0-5 [facility] Erythrocyte distribution wid th ratioOrdered By: India Crawford on 09-21-2024 Erythrocyte distribution width (RBC) [Ratio] 14.2 % 11.6-14.6 [facility] Erythrocyte distribution wid th standard deviationOrdered By: India Crawford on 09-21-2024 Erythrocyte distribution width (RBC) [Ratio] 43.8 fl 35.1-43.9 [facility] Glomerular filtration rate ( GFR) estimation/1.73 sq m using serum, plasma, or whole bOrdered By: India Crawford on 09-21-2024 GFR/1.73 sq M.predicted among non-blacks MDRD (S/P/Bld) [Vol rate/Area] 126 mL/min/{1.73_m2} >60 [facility] Comment on above: mL/min/1.73m2 CKD-EP I Creatinine Equation (2020) Hematocrit Auto (Bld) [Volum e fraction]Ordered By: India Crawford on 09-21-2024 Hematocrit (Bld) [Volume fraction] 39.6 % 37-47 [facility] Hemoglobin measurementOrdere d By: India Crawford on 09-21-2024 Hemoglobin (Bld) [Mass/Vol] 12.6 g/dL 12.0-15.0 [facility] Immature granulocytes/100 WB C Auto (Bld)Ordered By: India Crawford on 09-21-2024 Immature granulocytes/100 WBC (Bld) 0.100 % 0.0-0.9 [facility] Comment on above: IG% - Immature Granu locytes (promyelocytes, myelocytes and metamyelocytes) > 1% indicates that a LEFT SHIFT is Present. Laboratory - Chemistry and C hemistry - challengeOrdered By: India Crawford on 09-21-2024 AST [Catalytic activity/Vol] 51 U/L High <32 [facility] MCV (mean corpuscular volume ) determinationOrdered By: India Crawford on 09-21-2024 MCV (RBC) [Entitic vol] 83.9 fL 81-99 [facility] Mean corpuscular hemoglobin (MCH) determinationOrdered By: India Crawford on 09-21-2024 MCH (RBC) [Entitic mass] 26.7 pg Low 27.0-32.0 [facility] Mean corpuscular hemoglobin concentration (MCHC) determinationOrdered By: India Crawford on 09-21-2024 MCHC (RBC) [Mass/Vol] 31.8 g/dL Low 32-36 [facility] Mean platelet volume determi nationOrdered By: India Crawford on 09-21-2024 Platelet mean volume (Bld) [Entitic vol] 9.1 fL 6.2-12.0 [facility] Monocyte percentageOrdered B y: India Crawford on 09-21-2024 Monocytes/100 WBC (Bld) 9.8 % 0-10 [facility] Neutrophil percentageOrdered By: India Crawford on 09-21-2024 Neutrophils/100 WBC (Bld) 50.6 % 47-70 [facility] No Panel InformationOrdered By: India Crawford on 09-21-2024 51 U/L High <32 [facility] Nucleated red blood cell per centageOrdered By: India Crawford on 09-21-2024 Nucleated RBC/100 WBC (Bld) [Ratio] 0 % 0-5 [facility] Platelet countOrdered By: Shivani Crawford on 09-21-2024 Platelets (Bld) [#/Vol] 376 10*3/uL 150-450 [facility] Potassium measurement (mass/ volume)Ordered By: India Crawford on 09-21-2024 Potassium (Unsp spec) [Mass/Vol] 3.8 mmol/L 3.3-5.1 [facility] RBC Auto (Bld) [#/Vol]Ordere d By: India Crawford on 09-21-2024 RBC (Bld) [#/Vol] 4.72 10*6/uL 4.2-5.4 [facility] Serum creatinine measurement (mass/volume)Ordered By: India Crawford on 09-21-2024 Creatinine [Mass/Vol] 0.60 mg/dL Low 0.70-1.20 [facility] Serum globulin measurementOr dered By: India Crawford on 09-21-2024 Globulin (S) [Mass/Vol] 3.0 g/dL 2.2-4.2 [facility] Serum glucose measurement (m ass/volume)Ordered By: India Crawford on 09-21-2024 Glucose [Mass/Vol] 94 mg/dL 70-99 [facility] Serum or plasma alanine godinez otransferase (ALT) measurementOrdered By: India Crawford on 09-21-2024 ALT [Catalytic activity/Vol] 57 U/L High <35 [facility] Serum or plasma albumin cherelle urement (mass/volume)Ordered By: India Crawford on 09-21-2024 Albumin [Mass/Vol] 4.0 g/dL 3.5-5.0 [facility] Serum or plasma albumin/glob ulin mass ratioOrdered By: India Crawford on 09-21-2024 Albumin/Globulin [Mass ratio] 1.3 {ratio} 0.9-2.4 [facility] Serum or plasma alkaline rohit sphatase measurementOrdered By: India Crawford on 09-21-2024 ALP [Catalytic activity/Vol] 65 U/L 35-104 [facility] Serum or plasma calcium cherelle urement (mass/volume)Ordered By: India Crawford on 09-21-2024 Calcium [Mass/Vol] 9.2 mg/dL 7.6-11.0 [facility] Serum or plasma urea nitroge n measurement (mass/volume)Ordered By: India Crawford on 09-21-2024 Urea nitrogen [Mass/Vol] 10 mg/dL 4-19 [facility] Sodium levelOrdered By: India Crawford on 09-21-2024 Sodium [Moles/Vol] 140 mmol/L 133-145 [facility] Total proteinOrdered By: Izabella Crawford on 09-21-2024 Protein [Mass/Vol] 7.0 g/dL 5.9-8.4 [facility] White blood cell (WBC) count Ordered By: India Crawford on 09-21-2024 WBC (Bld) [#/Vol] 6.9 10*3/uL 4.4-11.0 [facility] 09-18-2024 [facility] Telephone ([facility]) -------- DOCMARION LORENZ ([id number]) 1995 F Date Time Provider Department 09/18/24 ARSENIO SOLORIO [facility] During your visit today, we recorded the following information about you: Arsenio Solorio LSW 09/18/2024 11:35 AM Signed Sensitive Note Diabesity AND Endocrinology Metabolic Exercise Noel ([id number]) Qualifying Questionnaire Patient Name: Marion Gutierrez Patient Referred Date: 09/18/2024 Approved or denied: Approved Method of Contact: (home) Provider Action/ FYI: Approved landing worker verified patient's identity by name, date of , and address. What is your City of Residence? [facility] [address]aira [address] [facility] [address] What is your insurance? Payor: [employer] / Plan: [employer] / Product Type: Medicaid / How many people live in your household? 1 What is your household income? $967 monthly $11,604 annually Are there any other factors that would qualify you for this program? n/a Notes: n/a Signature: KANU Helms Patient Name: Marion Gutierrez Date: 09/18/2024 Time: 11:32 AM Pager/Contact #: [phone] During this patient contact I spent approximately 15 minutes in counseling regarding [id number]. Allergies As of Date: 09/18/2024 Noted Allergy [...] Suicidal ideati (more content not 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 Normal [facility] L3410.9992on 09-05-2024 [facility] Misc. COMMENT Normal . [facility] Comment on above: Order Comment: ARPIT Del Angel ORANGE/[id number] VG Result Comment: Test Ordered: [id number] Nuab Vaginitis (VG)Test(s) 924133- Atopobium vaginae; 659144- BVAB 2;604190- Megasphaera 1was developed and its performance characteristicsdetermined by [facility]. It has not been cleared or approvedby the Food and Drug Administration.Test(s) 175319-Ohvftnd albicans, DAMARIS; 603584-Tfmuvlr glabrata, NAAwas developed and its performance characteristicsdetermined by [facility] [employer]. It has not been cleared or approvedby [...] =G Reference Range: NegativePerformed at: = - [address] [id number] Director: Idalia Yoo MD, Phone: [phone] at: [address] [id number] Director: Neeraj Marte PhD, Phone: [phone] Performed By: #### L 0530.9992, L400.0001, L500.2500, L100.0100, M100.2200 ####[facility] [address] [place], [place], [address] Lithiumon 09-05-2024 LI 0.53 mmol/L Low 0.60-1.20 [facility] Comment on above: Order Comment: RESUL TS ARE DELAYED DUE TO TECHNICAL INTERN MAINTENANCE/QC TASKS Performed By: #### L 501.9060 ####[facility] [address] [place], [address] Absolute lymphocyte countOrd ered By: Alexandr Smith on 09-04-2024 Lymphocytes Auto (Unsp spec) [#/Vol] 2.36 10*3/uL 0.83-4.51 [facility] Absolute neutrophil countOrd ered By: Alexandr Smith on 09-04-2024 Neutrophils (Bld) [#/Vol] 3.9 10*3/uL 2.0-7.7 [facility] Anion gap in Serum or Plasma Ordered By: Alexandr Smith on 09-04-2024 Anion gap [Moles/Vol] 12 mmol/L - [facility] Automated lymphocyte count a s percentage of total leukocytesOrdered By: Alexandr Smith on 09-04-2024 Lymphocytes/100 WBC Auto (Unsp spec) 33.0 % - [facility] BUN/creatinine ratioOrdered By: Alexandr Smith on 09-04-2024 Urea nitrogen/Creatinine [Mass ratio] 17.9 mg/mg - [facility] Basic Metabolic Profile (BMP )on 09-04-2024 BUN/CRE 17.9 RATIO Normal - [facility] Comment on above: Performed By: #### L 501.5200, L100.0100, L500.2500 ####[facility] [address] [place], [address] Calcium [Mass/Vol] 9.1 mg/dL Normal 7.6-11.0 [facility] Comment on above: Performed By: #### L 501.5200, L100.0100, L500.2500 ####[facility] [address] [place], [address] Chloride [Moles/Vol] 105 mmol/L Normal 98-108 [facility] Comment on above: Performed By: #### L 501.5200, L100.0100, L500.2500 ####[facility] [address] [place], [address] CO2 [Moles/Vol] 21.9 mmol/L Normal 21.0-32.0 [facility] Comment on above: Performed By: #### L 501.5200, L100.0100, L500.2500 ####[facility] [address] [place], [address] Creatinine [Mass/Vol] 0.57 mg/dL Low 0.70-1.20 [facility] Comment on above: Performed By: #### L 501.5200, L100.0100, L500.2500 ####[facility] [address] [place], [address] ECRCL 210.24 ml/min Normal 50-250 [facility] Comment on above: Performed By: #### L 501.5200, L100.0100, L500.2500 ####[facility] [address] [place], [address] GAP 12 Normal 5-15 [facility] Comment on above: Performed By: #### L 501.5200, L100.0100, L500.2500 ####[facility] [address] [place], [address] GFR/1.73 sq M.predicted among non-blacks MDRD (S/P/Bld) [Vol rate/Area] 128 mL/min/{1.73_m2} Normal >60 [facility] Comment on above: Result Comment: mL/m in/1.73m2 CKD-EPI Creatinine Equation (2020) Performed By: #### L 501.5200, L100.0100, L500.2500 ####[facility] [address] [place], [address] Glucose [Mass/Vol] 117 mg/dL High 70-99 [facility] Comment on above: Performed By: #### L 501.5200, L100.0100, L500.2500 ####[facility] [address] [place], [address] Potassium [Moles/Vol] 4.1 mmol/L Normal 3.3-5.1 [facility] Comment on above: Result Comment: Hemo lysis present, Results??could be affected.?? Performed By: #### L 501.5200, L100.0100, L500.2500 ####[facility] [address] [place], [address] Sodium [Moles/Vol] 138 mmol/L Normal 133-145 [facility] Comment on above: Performed By: #### L 501.5200, L100.0100, L500.2500 ####[facility] [address] [place], [address] Urea nitrogen [Mass/Vol] 10 mg/dL Normal 4-19 [facility] Comment on above: Performed By: #### L 501.5200, L100.0100, L500.2500 ####[facility] [address] [place], [address] Basophil percentageOrdered B y: Alexandr Smith on 09-04-2024 Basophils/100 WBC (Bld) 0.7 % 0-1 [facility] Blood manual differential co mment interpretation (narrative result)Ordered By: Alexandr Smith on 09-04-2024 Manual differential comment [place] (Bld) [Interp] SCANNED [facility] Brain/Head without Contrasto n 09-04-2024 Brain/Head without Contrast Normal [facility] CBC W/Diff, Automatedon 08-19 SMEAR COMMENT SCANNED Normal [facility] Comment on above: Performed By: #### L 501.5200, L100.0100, L500.2500 ####[facility] [address] [place], [address] Carbon dioxide, total [Moles /volume] in Central venous bloodOrdered By: Alexandr Smith on 09-04-2024 CO2 [Moles/Vol] 21.9 mmol/L 21.0-32.0 [facility] Chloride assayOrdered By: Shannen Smith on 09-04-2024 Chloride [Moles/Vol] 105 mmol/L 98-108 [facility] Emergency Department Summary on 09-04-2024 Emergency Department Summary Normal [facility] Eosinophil percentageOrdered By: Alexandr Smith on 09-04-2024 Eosinophils/100 WBC (Bld) 1.4 % 0-5 [facility] Erythrocyte distribution wid th ratioOrdered By: Alexandr Smith on 09-04-2024 Erythrocyte distribution width (RBC) [Ratio] 14.4 % 11.6-14.6 [facility] Erythrocyte distribution wid th standard deviationOrdered By: Alexandr Smith on 09-04-2024 Erythrocyte distribution width (RBC) [Ratio] 43.3 fl 35.1-43.9 [facility] Glomerular filtration rate ( GFR) estimation/1.73 sq m using serum, plasma, or whole bOrdered By: Alexandr Smith on 09-04-2024 GFR/1.73 sq M.predicted among non-blacks MDRD (S/P/Bld) [Vol rate/Area] 128 mL/min/{1.73_m2} >60 [facility] Comment on above: mL/min/1.73m2 CKD-EP I Creatinine Equation (2020) Hematocrit Auto (Bld) [Volum e fraction]Ordered By: Alexandr Smith on 09-04-2024 Hematocrit (Bld) [Volume fraction] 38.0 % 37-47 [facility] Hemoglobin measurementOrdere d By: Alexandr Smith on 09-04-2024 Hemoglobin (Bld) [Mass/Vol] 12.3 g/dL 12.0-15.0 [facility] Immature granulocytes/100 WB C Auto (Bld)Ordered By: Alexandr Smith on 09-04-2024 Immature granulocytes/100 WBC (Bld) 0.400 % 0.0-0.9 [facility] Comment on above: IG% - Immature Granu locytes (promyelocytes, myelocytes and metamyelocytes) > 1% indicates that a LEFT SHIFT is Present. MCV (mean corpuscular volume ) determinationOrdered By: Alexandr Smith on 09-04-2024 MCV (RBC) [Entitic vol] 83.0 fL 81-99 [facility] Magnesiumon 09-04-2024 Magnesium [Mass/Vol] 2.1 mg/dL Normal 1.5-2.2 [facility] Comment on above: Performed By: #### L 501.5200, L100.0100, L500.2500 ####[facility] [address] [place], [address] Magnesium measurement (mass/ volume)Ordered By: Alexandr Smith on 09-04-2024 Magnesium (Unsp spec) [Mass/Vol] 2.1 mg/dL 1.5-2.2 [facility] Mean corpuscular hemoglobin (MCH) determinationOrdered By: Alexandr Smith on 09-04-2024 MCH (RBC) [Entitic mass] 26.9 pg Low 27.0-32.0 [facility] Mean corpuscular hemoglobin concentration (MCHC) determinationOrdered By: Alexandr Smith on 09-04-2024 MCHC (RBC) [Mass/Vol] 32.4 g/dL 32-36 [facility] Mean platelet volume determi nationOrdered By: Alexandr Smith on 09-04-2024 Platelet mean volume (Bld) [Entitic vol] 11.4 fL 6.2-12.0 [facility] Monocyte percentageOrdered B y: Alexandr Smith on 09-04-2024 Monocytes/100 WBC (Bld) 9.8 % 0-10 [facility] Neutrophil percentageOrdered By: Alexandr Smith on 09-04-2024 Neutrophils/100 WBC (Bld) 54.7 % 47-70 [facility] Nucleated red blood cell per centageOrdered By: Alexandr Smith on 09-04-2024 Nucleated RBC/100 WBC (Bld) [Ratio] 0 % 0-5 [facility] Platelet countOrdered By: Shannen Smith on 09-04-2024 Platelets (Bld) [#/Vol] 241 10*3/uL 150-450 [facility] Potassium measurement (mass/ volume)Ordered By: Alexandr Smith on 09-04-2024 Potassium (Unsp spec) [Mass/Vol] 4.1 mmol/L 3.3-5.1 [facility] Comment on above: Hemolysis present, R esults could be affected. RBC Auto (Bld) [#/Vol]Ordere d By: Alexandr Smith on 09-04-2024 RBC (Bld) [#/Vol] 4.58 10*6/uL 4.2-5.4 [facility] Serum creatinine measurement (mass/volume)Ordered By: Alexandr Smith on 09-04-2024 Creatinine [Mass/Vol] 0.57 mg/dL Low 0.70-1.20 [facility] Serum glucose measurement (m ass/volume)Ordered By: Alexandr Smith on 09-04-2024 Glucose [Mass/Vol] 117 mg/dL High 70-99 [facility] Serum or plasma calcium cherelle urement (mass/volume)Ordered By: Alexandr Smith on 09-04-2024 Calcium [Mass/Vol] 9.1 mg/dL 7.6-11.0 [facility] Serum or plasma urea nitroge n measurement (mass/volume)Ordered By: Alexandr Smith on 09-04-2024 Urea nitrogen [Mass/Vol] 10 mg/dL 4-19 [facility] Sodium levelOrdered By: Samy Smith on 09-04-2024 Sodium [Moles/Vol] 138 mmol/L 133-145 [facility] Urine Cultureon 09-04-2024 [facility] Mixed Gram Pos Gram Neg Org [place] Count 25,000-50,000 MIXC Mixed contaminants. Submit a new specimen if indicated. Normal [facility] Comment on above: Performed By: #### L 3410.9992, L400.0001, L500.2500, L100.0100, M100.2200 ####[facility] [address] [place], [place], [id number] White blood cell (WBC) count Ordered By: Alexandr Smith on 09-04-2024 WBC (Bld) [#/Vol] 7.2 10*3/uL 4.4-11.0 [facility] Absolute lymphocyte countOrd ered By: [facility] Naina Da Silva on 09-02-2024 Lymphocytes Auto (Unsp spec) [#/Vol] 2.46 10*3/uL 0.83-4.51 [facility] Absolute neutrophil countOrd ered By: [facility] Naina Da Silva on 09-02-2024 Neutrophils (Bld) [#/Vol] 5.1 10*3/uL 2.0-7.7 [facility] Anion gap in Serum or Plasma Or[facility]: [facility] on 09-02-2024 Anion gap [Moles/Vol] 10 mmol/L 07-03 [facility] Automated lymphocyte count a s percentage of total leukocytesOrdered By: [facility] Naina Avinash on 09-02-2024 Lymphocytes/100 WBC Auto (Unsp spec) 29.4 % [facility] BUN/creatinine ratioOrdered By: [facility] Avinash on 09-02-2024 Urea nitrogen/Creatinine [Mass ratio] 22.5 mg/mg High - [facility] Basic Metabolic Profile (BMP )on 09-02-2024 BUN/CRE 22.5 RATIO High 10- [facility] Comment on above: Performed By: #### L 3410.9992, L400.0001, L500.2500, L100.0100, M100.2200 ####[facility] [address] [place], [address] Calcium [Mass/Vol] 9.3 mg/dL Normal 7.6-11.0 [facility] Comment on above: Performed By: #### L 3410.9992, L400.0001, L500.2500, L100.0100, M100.2200 ####[facility] [address] [place], [address] Chloride [Moles/Vol] 107 mmol/L Normal 98-108 [facility] Comment on above: Performed By: #### L 3410.9992, L400.0001, L500.2500, L100.0100, M100.2200 ####[facility] [address] [place], [address] CO2 [Moles/Vol] 22.4 mmol/L Normal 21.0-32.0 [facility] Comment on above: Performed By: #### L 3410.9992, L400.0001, L500.2500, L100.0100, M100.2200 ####[facility] [address] [place], [address] Creatinine [Mass/Vol] 0.54 mg/dL Low 0.70-1.20 [facility] Comment on above: Performed By: #### L 3410.9992, L400.0001, L500.2500, L100.0100, M100.2200 ####[facility] [address] [place], [address] GAP 10 Normal 5-15 [facility] Comment on above: Performed By: #### L 3410.9992, L400.0001, L500.2500, L100.0100, M100.2200 ####[facility] [address] [place], [address] GFR/1.73 sq M.predicted among non-blacks MDRD (S/P/Bld) [Vol rate/Area] 129 mL/min/{1.73_m2} Normal >60 [facility] Comment on above: Result Comment: mL/m in/1.73m2 CKD-EPI Creatinine Equation (2020) Performed By: #### L 3410.9992, L400.0001, L500.2500, L100.0100, M100.2200 ####[facility] [address] [place], [address] Glucose [Mass/Vol] 90 mg/dL Normal 70-99 [facility] Comment on above: Performed By: #### L 3410.9992, L400.0001, L500.2500, L100.0100, M100.2200 ####[facility] [address] [place], [address] Potassium [Moles/Vol] 4.0 mmol/L Normal 3.3-5.1 [facility] Comment on above: Performed By: #### L 3410.9992, L400.0001, L500.2500, L100.0100, M100.2200 ####[facility] [address] [place], [address] Sodium [Moles/Vol] 139 mmol/L Normal 133-145 [facility] Comment on above: Performed By: #### L 3410.9992, L400.0001, L500.2500, L100.0100, M100.2200 ####[facility] [address] [place], [address] Urea nitrogen [Mass/Vol] 12 mg/dL Normal 4-19 [facility] Comment on above: Performed By: #### L 3410.9992, L400.0001, L500.2500, L100.0100, M100.2200 ####[facility] [address] [place], [address] Basophil percentageOrdered B y: [facility] Naina Da Silva on 09-02-2024 Basophils/100 WBC (Bld) 0.5 % 0-1 [facility] Bilirubin Test strip Ql (U)O rdered By: [facility] Naina Da Silva on 09-02-2024 Bilirubin Ql (U) Negative Negative [facility] CBC W/Diff, Automatedon - Absolute Lymph 2.46 X10 3/uL Normal 0.83-4.51 [facility] Comment on above: Performed By: #### L 3410.9992, L400.0001, L500.2500, L100.0100, M100.2200 ####[facility] [address] [place], [address] Absolute Neut 5.1 X10 3/uL Normal 2.0-7.7 [facility] Comment on above: Performed By: #### L 3410.9992, L400.0001, L500.2500, L100.0100, M100.2200 ####[facility] [address] [place], [address] Basophils/100 WBC (Bld) 0.5 % Normal 0-1 [facility] Comment on above: Performed By: #### L 3410.9992, L400.0001, L500.2500, L100.0100, M100.2200 ####[facility] [address] [place], [address] Eosinophils/100 WBC (Bld) 0.8 % Normal 0-5 [facility] Comment on above: Performed By: #### L 3410.9992, L400.0001, L500.2500, L100.0100, M100.2200 ####[facility] [address] [place], [address] Erythrocyte distribution width (RBC) [Ratio] 14.3 % Normal 11.6-14.6 [facility] Comment on above: Performed By: #### L 3410.9992, L400.0001, L500.2500, L100.0100, M100.2200 ####[facility] [address] [place], [address] Hematocrit (Bld) [Volume fraction] 35.8 % Low 37-47 [facility] Comment on above: Performed By: #### L 3410.9992, L400.0001, L500.2500, L100.0100, M100.2200 ####[facility] [address] [place], [address] Hemoglobin (Bld) [Mass/Vol] 11.7 g/dL Low 12.0-15.0 [facility] Comment on above: Performed By: #### L 3410.9992, L400.0001, L500.2500, L100.0100, M100.2200 ####[facility] [address] [place], [address] IG% 0.200 Normal 0.0-0.9 [facility] Comment on above: Result Comment: IG% - Immature Granulocytes (promyelocytes, myelocytes andmetamyelocytes) > 1% indicates that a LEFT SHIFT is Present. Performed By: #### L 3410.9992, L400.0001, L500.2500, L100.0100, M100.2200 ####[facility] [address] [place], [address] Lymphocytes/100 WBC (Bld) 29.4 % Normal 19-41 [facility] Comment on above: Performed By: #### L 3410.9992, L400.0001, L500.2500, L100.0100, M100.2200 ####[facility] [address] [place], [address] MCH (RBC) [Entitic mass] 27.0 pg Normal 27.0-32.0 [facility] Comment on above: Performed By: #### L 3410.9992, L400.0001, L500.2500, L100.0100, M100.2200 ####[facility] [address] [place], [address] MCHC (RBC) [Mass/Vol] 32.7 g/dL Normal 32-36 [facility] Comment on above: Performed By: #### L 3410.9992, L400.0001, L500.2500, L100.0100, M100.2200 ####[facility] [address] [place], [address] MCV (RBC) [Entitic vol] 82.5 fL Normal 81-99 [facility] Comment on above: Performed By: #### L 3410.9992, L400.0001, L500.2500, L100.0100, M100.2200 ####[facility] [address] [place], [address] Monocytes/100 WBC (Bld) 8.2 % Normal 0-10 [facility] Comment on above: Performed By: #### L 3410.9992, L400.0001, L500.2500, L100.0100, M100.2200 ####[facility] [address] [place], [address] Neutrophils/100 WBC (Bld) 60.9 % Normal 47-70 [facility] Comment on above: Performed By: #### L 3410.9992, L400.0001, L500.2500, L100.0100, M100.2200 ####[facility] [address] [place], [address] Nucleated RBC (Bld) [#/Vol] 0 10*3/uL Normal 0-5 [facility] Comment on above: Performed By: #### L 3410.9992, L400.0001, L500.2500, L100.0100, M100.2200 ####[facility] [address] [place], [address] Platelet mean volume (Bld) [Entitic vol] 9.2 fL Normal 6.2-12.0 [facility] Comment on above: Performed By: #### L 3410.9992, L400.0001, L500.2500, L100.0100, M100.2200 ####[facility] [address] [place], [address] Platelets (Bld) [#/Vol] 313 10*3/uL Normal 150-450 [facility] Comment on above: Performed By: #### L 3410.9992, L400.0001, L500.2500, L100.0100, M100.2200 ####[facility] [address] [place], [address] RBC (Bld) [#/Vol] 4.34 10*6/uL Normal 4.2-5.4 [facility] Comment on above: Performed By: #### L 3410.9992, L400.0001, L500.2500, L100.0100, M100.2200 ####[facility] [address] [place], [address] RDW SD 43.1 fl Normal 35.1-43.9 [facility] Comment on above: Performed By: #### L 3410.9992, L400.0001, L500.2500, L100.0100, M100.2200 ####[facility] [address] [place], [address] WBC (Bld) [#/Vol] 8.4 10*3/uL Normal 4.4-11.0 [facility] Comment on above: Performed By: #### L 3410.9992, L400.0001, L500.2500, L100.0100, M100.2200 ####[facility] [address] [place], [address] Carbon dioxide, total [Moles /volume] in Central venous bloodOrdered By: [facility] Naina Da Silva on 09-02-2024 CO2 [Moles/Vol] 22.4 mmol/L 21.0-32.0 [facility] Chloride assayOrdered By: [facility] Naina Da Silva on 09-02-2024 Chloride [Moles/Vol] 107 mmol/L 98-108 [facility] Eosinophil percentageOrdered By: [facility] Naina Da Silva on 09-02-2024 Eosinophils/100 WBC (Bld) 0.8 % 0-5 [facility] Erythrocyte distribution wid th ratioOrdered By: [facility] Naina Da Silva on 09-02-2024 Erythrocyte distribution width (RBC) [Ratio] 14.3 % 11.6-14.6 [facility] Erythrocyte distribution wid th standard deviationOrdered By: [facility] Naina Da Silva on 09-02-2024 Erythrocyte distribution width (RBC) [Ratio] 43.1 fl 35.1-43.9 [facility] Glomerular filtration rate ( GFR) estimation/1.73 sq m using serum, plasma, or whole bOrdered By: [facility] Naina Da Silva on 09-02-2024 GFR/1.73 sq M.predicted among non-blacks MDRD (S/P/Bld) [Vol rate/Area] 129 mL/min/{1.73_m2} >60 [facility] Comment on above: mL/min/1.73m2 CKD-EP I Creatinine Equation (2020) Hematocrit Auto (Bld) [Volum e fraction]Ordered By: [facility] Naina Da Silva on 09-02-2024 Hematocrit (Bld) [Volume fraction] 35.8 % Low 37-47 [facility] Hemoglobin measurementOrdere d By: [facility] Naina Da Silva on 09-02-2024 Hemoglobin (Bld) [Mass/Vol] 11.7 g/dL Low 12.0-15.0 [facility] Immature granulocytes/100 WB C Auto (Bld)Ordered By: [facility] Naina Da Silva on 09-02-2024 Immature granulocytes/100 WBC (Bld) 0.200 % 0.0-0.9 [facility] Comment on above: IG% - Immature Granu locytes (promyelocytes, myelocytes and metamyelocytes) > 1% indicates that a LEFT SHIFT is Present. Ketones Test strip Ql (U)Ord ered By: [facility] Naina Da Silva on 09-02-2024 Ketones Ql (U) Negative Negative [facility] MCV (mean corpuscular volume ) determinationOrdered By: [facility] Naina Da Silva on 09-02-2024 MCV (RBC) [Entitic vol] 82.5 fL 81-99 [facility] Mean corpuscular hemoglobin (MCH) determinationOrdered By: [facility] Naina Da Silva on 09-02-2024 MCH (RBC) [Entitic mass] 27.0 pg 27.0-32.0 [facility] Mean corpuscular hemoglobin concentration (MCHC) determinationOrdered By: [facility] Naina Da Silva on 09-02-2024 MCHC (RBC) [Mass/Vol] 32.7 g/dL 32-36 [facility] Mean platelet volume determi nationOrdered By: [facility] Naina Da Silva 09-02-2024 Platelet mean volume (Bld) [Entitic vol] 9.2 fL 6.2-12.0 [facility] Microscopic analysis of urin e for red blood cells (RBC)Ordered By: [facility] Naina Avinash on 09-02-2024 Microscopic analysis of urine for red blood cells (RBC) 0 SEEN /hpf 0-5 [facility] Monocyte percentageOrdered B y: DANIELLE Naina Avinash on 09-02-2024 Monocytes/100 WBC (Bld) 8.2 % 0-10 [facility] Mucus LM Ql (Urine sed)Order ed By: [facility] Nainakourtney Da Silva on 09-02-2024 Mucus Ql (Urine sed) 0 SEEN /hpf [facility] Neutrophil percentageOrdered By: [facility] Nainakourtney Da Silva on 09-02-2024 Neutrophils/100 WBC (Bld) 60.9 % 47-70 [facility] Nitrite Test strip Ql (U)Ord ered By: [facility] Naina Da Silva on 09-02-2024 Nitrite Ql (U) Negative Negative [facility] Nucleated red blood cell per centageOrdered By: [facility] Naina Da Silva on 09-02-2024 Nucleated RBC/100 WBC (Bld) [Ratio] 0 % 0-5 [facility] Platelet countOrdered By: [facility] Nainakourtney Da Silva on 09-02-2024 Platelets (Bld) [#/Vol] 313 10*3/uL 150-450 [facility] Potassium measurement (mass/ volume)Ordered By: [facility] Naina Da Silva on 09-02-2024 Potassium (Unsp spec) [Mass/Vol] 4.0 mmol/L 3.3-5.1 [facility] Protein Test strip Ql (U)Ord ered By: [facility] Naina Da Silva on 09-02-2024 Protein Ql (U) 15 mg/dl High Negative [facility] RBC Auto (Bld) [#/Vol]Ordere d By: [facility] Naina Da Silva on 09-02-2024 RBC (Bld) [#/Vol] 4.34 10*6/uL 4.2-5.4 [facility] Serum creatinine measurement (mass/volume)Ordered By: DANIELLE Naina Da Silva on 09-02-2024 Creatinine [Mass/Vol] 0.54 mg/dL Low 0.70-1.20 [facility] Serum glucose measurement (m ass/volume)Ordered By: [facility] Naina Da Silva on 09-02-2024 Glucose [Mass/Vol] 90 mg/dL 70-99 [facility] Serum or plasma calcium cherelle urement (mass/volume)Ordered By: [facility] Naina Da Silva on 09-02-2024 Calcium [Mass/Vol] 9.3 mg/dL 7.6-11.0 [facility] Serum or plasma urea nitroge n measurement (mass/volume)Ordered By: [facility] Naina Avinash on 09-02-2024 Urea nitrogen [Mass/Vol] 12 mg/dL 4-19 [facility] Sodium levelOrdered By: [facility] Naina Avinash on 09-02-2024 Sodium [Moles/Vol] 139 mmol/L 133-145 [facility] Squamous epithelial cells de tection in urine sediment by light microscopyOrdered By: [facility] Naina Avinash on 09-02-2024 Epithelial cells.squamous LM Ql (Urine sed) 0-5 SEEN /hpf 5-10 [facility] Urinalysis, Completeon 09-02 EPI,SQUAMOUS 0-5 SEEN Normal -10 [facility] Comment on above: Order Comment: CLEAN CATCH Performed By: #### L 3410.9992, L400.0001, L500.2500, L100.0100, M100.2200 ####[facility] [address] [place], [address] WBC 0-5 SEEN Normal 0-5 [facility] Comment on above: Order Comment: CLEAN CATCH Performed By: #### L 3410.9992, L400.0001, L500.2500, L100.0100, M100.2200 ####[facility] [address] [place], [address] BACTERIA 0 SEEN Normal None Seen [facility] Comment on above: Order Comment: CLEAN CATCH Performed By: #### L 3410.9992, L400.0001, L500.2500, L100.0100, M100.2200 ####[facility] [address] [place], [address] Mucus Ql (Urine sed) 0 SEEN Normal [facility] Comment on above: Order Comment: CLEAN CATCH Performed By: #### L 3410.9992, L400.0001, L500.2500, L100.0100, M100.2200 ####[facility] [address] [place], [address] RBC 0 SEEN Normal 0-5 [facility] Comment on above: Order Comment: CLEAN CATCH Performed By: #### L 3410.9992, L400.0001, L500.2500, L100.0100, M100.2200 ####[facility] [address] [place], [place], [id number] Urine clarityOrdered By: REED Da Silva on 09-02-2024 Clarity (U) Clear Clear [facility] Urine color determinationOrd ered By: REED Da Silva on 09-02-2024 Color (U) YELLOW Yellow [facility] Urine cultureOrdered By: REED Da Silva on 09-02-2024 Bacteria identified Cx Nom (U) Mixed Gram Pos & Gram Neg Org Abnormal [facility] Bacteria identified Cx Nom (U) Mixed Gram Pos & Gram Neg Org Abnormal [facility] Urine glucose detectionOrder ed By: REED Da Silva on 09-02-2024 Glucose Ql (U) Normal mg/dl Normal [facility] Urine leukocyte esterase det ection by dipstickOrdered By: REED Da Silva on 09-02-2024 Leukocyte esterase Test strip Ql (U) Negative Negative [facility] Urine pHOrdered By: Kimi Da Silva on 09-02-2024 pH (U) 6.0 [pH] 5.0 - 8.0 [facility] Urine sediment bacteria coun t by microscopy (number/high power field)Ordered By: REED Da Silva on 09-02-2024 Bacteria LM.HPF (Urine sed) [#/Area] 0 /[HPF] None Seen [facility] Urine specific gravity measu rementOrdered By: REED Da Silva on 09-02-2024 Specific gravity (U) [Rel density] 1.015 1.002-1.030 [facility] Urine urobilinogen measureme ntOrdered By: [facility] Naina Avinash on 09-02-2024 Urobilinogen Ql (U) Normal mg/dl Normal [facility] White blood cell (WBC) count Ordered By: [facility] Naina Avinash on 09-02-2024 WBC (Bld) [#/Vol] 8.4 10*3/uL 4.4-11.0 [facility] White blood cell countOrdere d By: [facility] Naina Avinash on 09-02-2024 White blood cell count 0-5 SEEN /hpf 0-5 [facility] CNPNon 08-28-2024 CNPN Telephone ([facility]) -------- MARION GUTIERREZ ([id number]) 1995 F Date Time Provider Department 08/28/24 ARSENIO SOLORIO [facility] During your visit today, we recorded the following information about you: Arsenio Solorio LSW 08/28/2024 3:51 PM Signed Endocrinology AND Metabolism Social Work Progress Note Provider Action / FYI N/A Marion Gutierrez [id number] Type of Contact: telephone Endocrine [employer] Referral Reason: [id number]/Exercise Noel Qualification Contact Made?: 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 Note/Intervention: n/a [employer] referral placed: n/a Signature: KANU Pathak Patient Name: Marion Gutierrez Date: 08/28/2024 Time: 3:50 PM Pager/Contact #: [phone] During this patient contact I spent approximately [...] ARSENIO SOLORIO on 08/28/24 Normal [facility] Magnetic resonance imaging r eportOrdered By: Fantasma Krishnan on 08-08-2024 Study report [facility] Imaging Services [address] [place], [place] [address] MRI Abd WITH and W/O Contrast MR#: [id number] Acct: [id number] Name: MARION GUTIERREZ Rep #: [id number] : 1995 F 28 From: Eloy Krishnan MD PCP: Karuna Lim [facility] [employer] Status: REG CLI Study:MRI Abd WITH and W/O Contrast Date of E xam: 08/07/24 Exam# [id number] Ordering Dr: Robbi Oliva DO PROCEDURE: MRI [...] 2. Other findings as noted. Reading Location: [id number] CC: Andreasadalgisa Oliva, ; Karuna [facility] [employer] Beam ~ Angle Roll Operator: Signed [facility] Work Phone: MRI Abd WITH and W/O Contras ton 08-07-2024 MRI Abd WITH and W/O Contrast Normal [facility] Cardiology Visit Reporton Cardiology Visit Report Normal [facility] CNOVon 07-15-2024 CNOV Office Visit (ENWSTR ) -------- MARION GUTIERREZ ([id number]) 1995 F Date Time Provider Department 07/15/24 10:40 AM JEY JOHNSON ENWSBIANCA During your visit today, we recorded the following information about you: Pulse Respiration Blood pressure Weight 61/minute 20/minute 122/78 134.4 kg Height Last Period 1.702 m 06/24/24 Jey Johnson MD 07/16/2024 11:20 PM Addendum Endocrinology and Metabolism Paulina Follow up note Chief complaint: Evaluation of [...] (more content not 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 Normal [facility] Gastroenterology Visit Repor ton 07-08-2024 Gastroenterology Visit Report Normal [facility] Arterial study reportOrdered By: Ozzy Greco on 06-23-2024 Noninvasive arteriosclerosis study report [facility] Cardiovascular Services [address] [place] [address] Upper Extremity Arterial Study 06/20/24 1006 MR#: [id number] Acct: [id number] Name: MARION GUTIERREZ Rep #:[id number] : 1995 28 From: Ozzy Masterson Attending Dr: HORTENSIA Montalvo tatus: REG CLI Ordering Dr: Shawanda Ramires NP [employer] Usama e: 06/20/24 Location: [facility] Sex: F C Admitted: Reason For Study [...] Ordering Physician: Shawanda Ramires [facility] Performed By: Tylor Encarnacion, DOMINIQUET 06/23/24 0736 Date _ Ozzy Greco MD CC: HORTENSIA Ramires; Karuna [facility] [employer] Beam ~ Date Dictated: 06/20/24 1006 Date Transcribed: 06/23/24 2702 Angle Roll Operator: Signed [facility] Work Phone: Upper Extremity Arterial Skyler dyon 06-20-2024 Upper Extremity Arterial Study Normal [facility] Absolute lymphocyte countOrd ered By: kwasilun Beam on 06-10-2024 Lymphocytes Auto (Unsp spec) [#/Vol] 2.20 10*3/uL 0.83-4.51 [facility] Absolute neutrophil countOrd ered By: bulun Beam on 06-10-2024 Neutrophils (Bld) [#/Vol] 5.9 10*3/uL 2.0-7.7 [facility] Anion gap in Serum or Plasma Ordered By: Karuna Lim on 06-10-2024 Anion gap [Moles/Vol] 12 mmol/L 5-15 [facility] Automated lymphocyte count a s percentage of total leukocytesOrdered By: shayna Lim on 06-10-2024 Lymphocytes/100 WBC Auto (Unsp spec) 24.7 % 19-41 [facility] BUN/creatinine ratioOrdered By: [facility] Be[facility] on 06-10-2024 Urea nitrogen/Creatinine [Mass ratio] 12.5 mg/mg 10-20 [facility] Basophil percentageOrdered B y: Zekwasiluadalgisa Beam on 06-10-2024 Basophils/100 WBC (Bld) 0.6 % 0-1 [facility] Bilirubin, totalOrdered By: shayna Lim on 06-10-2024 Bilirubin [Mass/Vol] 0.30 mg/dL 0.00-1.30 [facility] CBC W/Diff, Automatedon 05-21 Absolute Lymph 2.20 X10 3/uL Normal 0.83-4.51 [facility] Comment on above: Performed By: #### L 100.0100, L500.4050 ####[facility] [address] [place], [place], [id number] Absolute Neut 5.9 X10 3/uL Normal 2.0-7.7 [facility] Comment on above: Performed By: #### L 100.0100, L500.4050 ####[facility] [address] [place], [address] Basophils/100 WBC (Bld) 0.6 % Normal 0-1 [facility] Comment on above: Performed By: #### L 100.0100, L500.4050 ####[facility] [address] [place], [address] Eosinophils/100 WBC (Bld) 0.2 % Normal 0-5 [facility] Comment on above: Performed By: #### L 100.0100, L500.4050 ####[facility] [address] [place], [address] Erythrocyte distribution width (RBC) [Ratio] 14.3 % Normal 11.6-14.6 [facility] Comment on above: Performed By: #### L 100.0100, L500.4050 ####[facility] [address] [place], [address] Hematocrit (Bld) [Volume fraction] 38.5 % Normal 37-47 [facility] Comment on above: Performed By: #### L 100.0100, L500.4050 ####[facility] [address] [place], [address] Hemoglobin (Bld) [Mass/Vol] 12.7 g/dL Normal 12.0-15.0 [facility] Comment on above: Performed By: #### L 100.0100, L500.4050 ####[facility] [address] [place], [address] IG% 0.300 Normal 0.0-0.9 [facility] Comment on above: Result Comment: IG% - Immature Granulocytes (promyelocytes, myelocytes andmetamyelocytes) > 1% indicates that a LEFT SHIFT is Present. Performed By: #### L 100.0100, L500.4050 ####[facility] [address] [place], [address] Lymphocytes/100 WBC (Bld) 24.7 % Normal 19-41 [facility] Comment on above: Performed By: #### L 100.0100, L500.4050 ####[facility] [address] [place], [address] MCH (RBC) [Entitic mass] 26.7 pg Low 27.0-32.0 [facility] Comment on above: Performed By: #### L 100.0100, L500.4050 ####[facility] [address] [place], [address] MCHC (RBC) [Mass/Vol] 33.0 g/dL Normal 32-36 [facility] Comment on above: Performed By: #### L 100.0100, L500.4050 ####[facility] [address] [place], [address] MCV (RBC) [Entitic vol] 81.1 fL Normal 81-99 [facility] Comment on above: Performed By: #### L 100.0100, L500.4050 ####[facility] [address] [place], [address] Monocytes/100 WBC (Bld) 7.4 % Normal 0-10 [facility] Comment on above: Performed By: #### L 100.0100, L500.4050 ####[facility] [address] [place], [address] Neutrophils/100 WBC (Bld) 66.8 % Normal 47-70 [facility] Comment on above: Performed By: #### L 100.0100, L500.4050 ####[facility] [address] [place], [address] Nucleated RBC (Bld) [#/Vol] 0 10*3/uL Normal 0-5 [facility] Comment on above: Performed By: #### L 100.0100, L500.4050 ####[facility] [address] [place], [address] Platelet mean volume (Bld) [Entitic vol] 9.0 fL Normal 6.2-12.0 [facility] Comment on above: Performed By: #### L 100.0100, L500.4050 ####[facility] [address] [place], [address] Platelets (Bld) [#/Vol] 414 10*3/uL Normal 150-450 [facility] Comment on above: Performed By: #### L 100.0100, L500.4050 ####[facility] [address] [place], [address] RBC (Bld) [#/Vol] 4.75 10*6/uL Normal 4.2-5.4 [facility] Comment on above: Performed By: #### L 100.0100, L500.4050 ####[facility] [address] [place], [address] RDW SD 42.1 fl Normal 35.1-43.9 [facility] Comment on above: Performed By: #### L 100.0100, L500.4050 ####[facility] [address] [place], [address] WBC (Bld) [#/Vol] 8.9 10*3/uL Normal 4.4-11.0 [facility] Comment on above: Performed By: #### L 100.0100, L500.4050 ####[facility] [address] [place], [address] Carbon dioxide, total [Moles /volume] in Central venous bloodOrdered By: Vazquezbulun Beam on 06-10-2024 CO2 [Moles/Vol] 23.3 mmol/L 21.0-32.0 [facility] Chloride assayOrdered By: Vazquez Lim on 06-10-2024 Chloride [Moles/Vol] 104 mmol/L 98-108 [facility] Comprehensive Metabolic Prof ilon 06-10-2024 Albumin [Mass/Vol] 3.9 g/dL Normal 3.5-5.0 [facility] Comment on above: Performed By: #### L 100.0100, L500.4050 ####[facility] [address] [place], [address] Albumin/Globulin [Mass ratio] 1.2 {ratio} Normal 0.9-2.4 [facility] Comment on above: Performed By: #### L 100.0100, L500.4050 ####[facility] [address] [place], [address] ALK PHOS 64 U/L Normal 35-104 [facility] Comment on above: Performed By: #### L 100.0100, L500.4050 ####[facility] [address] [place], [address] ALT [Catalytic activity/Vol] 28 U/L Normal <=34 [facility] Comment on above: Performed By: #### L 100.0100, L500.4050 ####[facility] [address] [place], [address] AST [Catalytic activity/Vol] 22 U/L Normal <=31 [facility] Comment on above: Performed By: #### L 100.0100, L500.4050 ####[facility] [address] [place], [address] Bilirubin [Mass/Vol] 0.30 mg/dL Normal 0.00-1.30 [facility] Comment on above: Performed By: #### L 100.0100, L500.4050 ####[facility] [address] [place], [address] BUN/CRE 12.5 RATIO Normal 10-20 [facility] Comment on above: Performed By: #### L 100.0100, L500.4050 ####[facility] [address], [address] Calcium [Mass/Vol] 9.4 mg/dL Normal 7.6-11.0 [facility] Comment on above: Performed By: #### L 100.0100, L500.4050 ####[facility] [address] [place], [address] Chloride [Moles/Vol] 104 mmol/L Normal 98-108 [facility] Comment on above: Performed By: #### L 100.0100, L500.4050 ####[facility] [address] [place], [address] CO2 [Moles/Vol] 23.3 mmol/L Normal 21.0-32.0 [facility] Comment on above: Performed By: #### L 100.0100, L500.4050 ####[facility] [address] [place], [address] Creatinine [Mass/Vol] 0.98 mg/dL Normal 0.70-1.20 [facility] Comment on above: Performed By: #### L 100.0100, L500.4050 ####[facility] [address] [place], [address] GAP 12 Normal 5-15 [facility] Comment on above: Performed By: #### L 100.0100, L500.4050 ####[facility] [address] [place], [address] GFR/1.73 sq M.predicted among non-blacks MDRD (S/P/Bld) [Vol rate/Area] 82 mL/min/{1.73_m2} Normal >60 [facility] Comment on above: Result Comment: mL/m in/1.73m2 CKD-EPI Creatinine Equation (2020) Performed By: #### L 100.0100, L500.4050 ####[facility] [address] [place], [address] Globulin (S) [Mass/Vol] 3.3 g/dL Normal 2.2-4.2 [facility] Comment on above: Performed By: #### L 100.0100, L500.4050 ####[facility] [address] [place], [address] Glucose [Mass/Vol] 120 mg/dL High 70-99 [facility] Comment on above: Performed By: #### L 100.0100, L500.4050 ####[facility] [address] [place], [address] Potassium [Moles/Vol] 3.9 mmol/L Normal 3.3-5.1 [facility] Comment on above: Performed By: #### L 100.0100, L500.4050 ####[facility] [address] [place], [address] Sodium [Moles/Vol] 138 mmol/L Normal 133-145 [facility] Comment on above: Performed By: #### L 100.0100, L500.4050 ####[facility] [address] [place], [address] T PROT 7.1 g/dL Normal 5.9-8.4 [facility] Comment on above: Performed By: #### L 100.0100, L500.4050 ####[facility] [address] [place], [address] Urea nitrogen [Mass/Vol] 12 mg/dL Normal 4-19 [facility] Comment on above: Performed By: #### L 100.0100, L500.4050 ####[facility] [address] [place], [address] Eosinophil percentageOrdered By: Karuna Lim on 06-10-2024 Eosinophils/100 WBC (Bld) 0.2 % 0-5 [facility] Erythrocyte distribution wid th ratioOrdered By: Karuna Lim on 06-10-2024 Erythrocyte distribution width (RBC) [Ratio] 14.3 % 11.6-14.6 [facility] Erythrocyte distribution wid th standard deviationOrdered By: kwasiadalgisa Lim on 06-10-2024 Erythrocyte distribution width (RBC) [Ratio] 42.1 fl 35.1-43.9 [facility] Glomerular filtration rate ( GFR) estimation/1.73 sq m using serum, plasma, or whole bOrdered By: kwasiadalgisa Lim on 06-10-2024 GFR/1.73 sq M.predicted among non-blacks MDRD (S/P/Bld) [Vol rate/Area] 82 mL/min/{1.73_m2} >60 [facility] Comment on above: mL/min/1.73m2 CKD-EP I Creatinine Equation (2020) Hematocrit Auto (Bld) [Volum e fraction]Ordered By: [facility] on 06-10-2024 Hematocrit (Bld) [Volume fraction] 38.5 % 37-47 [facility] Hemoglobin measurementOrdere d By: [facility] on 06-10-2024 Hemoglobin (Bld) [Mass/Vol] 12.7 g/dL 12.0-15.0 [facility] Immature granulocytes/100 WB C Auto (Bld)Ordered By: shayna Lim on 06-10-2024 Immature granulocytes/100 WBC (Bld) 0.300 % 0.0-0.9 [facility] Comment on above: IG% - Immature Granu locytes (promyelocytes, myelocytes and metamyelocytes) > 1% indicates that a LEFT SHIFT is Present. Laboratory - Chemistry and C hemistry - challengeOrdered By: kwasiadalgisa Lim on 06-10-2024 AST [Catalytic activity/Vol] 22 U/L <32 [facility] MCV (mean corpuscular volume ) determinationOrdered By: [facility] on 06-10-2024 MCV (RBC) [Entitic vol] 81.1 fL 81-99 [facility] Mean corpuscular hemoglobin (MCH) determinationOrdered By: Paytnolun Beam on 06-10-2024 MCH (RBC) [Entitic mass] 26.7 pg Low 27.0-32.0 [facility] Mean corpuscular hemoglobin concentration (MCHC) determinationOrdered By: Zekwasilun Beam on 06-10-2024 MCHC (RBC) [Mass/Vol] 33.0 g/dL 32-36 [facility] Mean platelet volume determi nationOrdered By: Zekwasilun Beam on 06-10-2024 Platelet mean volume (Bld) [Entitic vol] 9.0 fL 6.2-12.0 [facility] Monocyte percentageOrdered B y: Karuna Beam on 06-10-2024 Monocytes/100 WBC (Bld) 7.4 % 0-10 [facility] Neutrophil percentageOrdered By: Karuna Beam on 06-10-2024 Neutrophils/100 WBC (Bld) 66.8 % 47-70 [facility] No Panel InformationOrdered By: Karuna Beam on 06-10-2024 22 U/L <32 [facility] Nucleated red blood cell per centageOrdered By: Karuna Beam on 06-10-2024 Nucleated RBC/100 WBC (Bld) [Ratio] 0 % 0-5 [facility] Platelet countOrdered By: Vazquez Lim on 06-10-2024 Platelets (Bld) [#/Vol] 414 10*3/uL 150-450 [facility] Potassium measurement (mass/ volume)Ordered By: Karuna Lim on 06-10-2024 Potassium (Unsp spec) [Mass/Vol] 3.9 mmol/L 3.3-5.1 [facility] RBC Auto (Bld) [#/Vol]Ordere d By: Krauna Beam on 06-10-2024 RBC (Bld) [#/Vol] 4.75 10*6/uL 4.2-5.4 [facility] Serum creatinine measurement (mass/volume)Ordered By: Karuna Lim on 06-10-2024 Creatinine [Mass/Vol] 0.98 mg/dL 0.70-1.20 [facility] Serum globulin measurementOr dered By: Karuna Lim on 06-10-2024 Globulin (S) [Mass/Vol] 3.3 g/dL 2.2-4.2 [facility] Serum glucose measurement (m ass/volume)Ordered By: Karuna Lim on 06-10-2024 Glucose [Mass/Vol] 120 mg/dL High 70-99 [facility] Serum or plasma alanine godinez otransferase (ALT) measurementOrdered By: Karuna Lim on 06-10-2024 ALT [Catalytic activity/Vol] 28 U/L <35 [facility] Serum or plasma albumin cherelle urement (mass/volume)Ordered By: Karuna Lim on 06-10-2024 Albumin [Mass/Vol] 3.9 g/dL 3.5-5.0 [facility] Serum or plasma albumin/glob ulin mass ratioOrdered By: Karuna Lim on 06-10-2024 Albumin/Globulin [Mass ratio] 1.2 {ratio} 0.9-2.4 [facility] Serum or plasma alkaline rohit sphatase measurementOrdered By: Karuna Lim on 06-10-2024 ALP [Catalytic activity/Vol] 64 U/L 35-104 [facility] Serum or plasma calcium cherelle urement (mass/volume)Ordered By: Karuna Lim on 06-10-2024 Calcium [Mass/Vol] 9.4 mg/dL 7.6-11.0 [facility] Serum or plasma urea nitroge n measurement (mass/volume)Ordered By: Karuna Lim on 06-10-2024 Urea nitrogen [Mass/Vol] 12 mg/dL 4-19 [facility] Sodium levelOrdered By: Payton Lim on 06-10-2024 Sodium [Moles/Vol] 138 mmol/L 133-145 [facility] Total proteinOrdered By: Juventino Lim on 06-10-2024 Protein [Mass/Vol] 7.1 g/dL 5.9-8.4 [facility] White blood cell (WBC) count Ordered By: Karuna Lim on 06-10-2024 WBC (Bld) [#/Vol] 8.9 10*3/uL 4.4-11.0 [facility] 12 Lead EKGon 06-03-2024 12 Lead EKG Normal [facility] Abdomen Limitedon 06-03-2024 Abdomen Limited Normal [facility] Absolute lymphocyte countOrd ered By: Jaylon Galicia on 06-03-2024 Lymphocytes Auto (Unsp spec) [#/Vol] 1.66 10*3/uL 0.83-4.51 [facility] Absolute neutrophil countOrd ered By: Jaylon Galicia on 06-03-2024 Neutrophils (Bld) [#/Vol] 4.2 10*3/uL 2.0-7.7 [facility] Anion gap in Serum or Plasma Ordered By: Jaylon Galicia on 06-03-2024 Anion gap [Moles/Vol] 12 mmol/L 07-03 [facility] Automated lymphocyte count a s percentage of total leukocytesOrdered By: Jaylon Galicia on 06-03-2024 Lymphocytes/100 WBC Auto (Unsp spec) 25.5 % [facility] BUN/creatinine ratioOrdered By: Jaylon Galicia on 06-03-2024 Urea nitrogen/Creatinine [Mass ratio] 17.9 mg/mg - [facility] Basic Metabolic Profile (BMP )on 06-03-2024 BUN/CRE 17.9 RATIO Normal - [facility] Comment on above: Performed By: #### L 100.0100, L500.2500, L501.4021 ####[facility] [address] [place], [address] Calcium [Mass/Vol] 8.9 mg/dL Normal 7.6-11.0 [facility] Comment on above: Performed By: #### L 100.0100, L500.2500, L501.4021 ####[facility] [address] [place], [address] Chloride [Moles/Vol] 105 mmol/L Normal 98-108 [facility] Comment on above: Performed By: #### L 100.0100, L500.2500, L501.4021 ####[facility] [address] [place], [address] CO2 [Moles/Vol] 22.0 mmol/L Normal 21.0-32.0 [facility] Comment on above: Performed By: #### L 100.0100, L500.2500, L501.4021 ####[facility] [address] [place], [address] Creatinine [Mass/Vol] 0.53 mg/dL Low 0.70-1.20 [facility] Comment on above: Performed By: #### L 100.0100, L500.2500, L501.4021 ####[facility] [address] [place], [address] ECRCL 225.17 ml/min Normal 50-250 [facility] Comment on above: Performed By: #### L 100.0100, L500.2500, L501.4021 ####[facility] [address] [place], [address] GAP 12 Normal 5-15 [facility] Comment on above: Performed By: #### L 100.0100, L500.2500, L501.4021 ####[facility] [address] [place], [address] GFR/1.73 sq M.predicted among non-blacks MDRD (S/P/Bld) [Vol rate/Area] 130 mL/min/{1.73_m2} Normal >60 [facility] Comment on above: Result Comment: mL/m in/1.73m2 CKD-EPI Creatinine Equation (2020) Performed By: #### L 100.0100, L500.2500, L501.4021 ####[facility] [address] [place], [address] Glucose [Mass/Vol] 118 mg/dL High 70-99 [facility] Comment on above: Performed By: #### L 100.0100, L500.2500, L501.4021 ####[facility] [address] [place], [address] Potassium [Moles/Vol] 3.5 mmol/L Normal 3.3-5.1 [facility] Comment on above: Performed By: #### L 100.0100, L500.2500, L501.4021 ####[facility] [address] [place], [address] Sodium [Moles/Vol] 139 mmol/L Normal 133-145 [facility] Comment on above: Performed By: #### L 100.0100, L500.2500, L501.4021 ####[facility] [address] [place], [address] Urea nitrogen [Mass/Vol] 9 mg/dL Normal 4-19 [facility] Comment on above: Performed By: #### L 100.0100, L500.2500, L501.4021 ####[facility] [address] [place], [address] Basophil percentageOrdered B y: Jaylon Grayson on 06-03-2024 Basophils/100 WBC (Bld) 0.5 % 0-1 [facility] CBC W/Diff, Automatedon 05-20 Absolute Lymph 1.66 X10 3/uL Normal 0.83-4.51 [facility] Comment on above: Performed By: #### L 100.0100, L500.2500, L501.4021 ####[facility] [address] [place], [address] Absolute Neut 4.2 X10 3/uL Normal 2.0-7.7 [facility] Comment on above: Performed By: #### L 100.0100, L500.2500, L501.4021 ####[facility] [address] [place], [address] Basophils/100 WBC (Bld) 0.5 % Normal 0-1 [facility] Comment on above: Performed By: #### L 100.0100, L500.2500, L501.4021 ####[facility] [address] [place], [address] Eosinophils/100 WBC (Bld) 0.5 % Normal 0-5 [facility] Comment on above: Performed By: #### L 100.0100, L500.2500, L501.4021 ####[facility] [address] [place], [address] Erythrocyte distribution width (RBC) [Ratio] 14.3 % Normal 11.6-14.6 [facility] Comment on above: Performed By: #### L 100.0100, L500.2500, L501.4021 ####[facility] [address] [place], [address] Hematocrit (Bld) [Volume fraction] 36.7 % Low 37-47 [facility] Comment on above: Performed By: #### L 100.0100, L500.2500, L501.4021 ####[facility] [address] [place], [address] Hemoglobin (Bld) [Mass/Vol] 12.1 g/dL Normal 12.0-15.0 [facility] Comment on above: Performed By: #### L 100.0100, L500.2500, L501.4021 ####[facility] [address] [place], [address] IG% 0.300 Normal 0.0-0.9 [facility] Comment on above: Result Comment: IG% - Immature Granulocytes (promyelocytes, myelocytes andmetamyelocytes) > 1% indicates that a LEFT SHIFT is Present. Performed By: #### L 100.0100, L500.2500, L501.4021 ####[facility] [address] [place], [address] Lymphocytes/100 WBC (Bld) 25.5 % Normal 19-41 [facility] Comment on above: Performed By: #### L 100.0100, L500.2500, L501.4021 ####[facility] [address] [place], [address] MCH (RBC) [Entitic mass] 26.7 pg Low 27.0-32.0 [facility] Comment on above: Performed By: #### L 100.0100, L500.2500, L501.4021 ####[facility] [address] [place], [address] MCHC (RBC) [Mass/Vol] 33.0 g/dL Normal 32-36 [facility] Comment on above: Performed By: #### L 100.0100, L500.2500, L501.4021 ####[facility] [address] [place], [address] MCV (RBC) [Entitic vol] 81.0 fL Normal 81-99 [facility] Comment on above: Performed By: #### L 100.0100, L500.2500, L501.4021 ####[facility] [address] [place], [address] Monocytes/100 WBC (Bld) 8.9 % Normal 0-10 [facility] Comment on above: Performed By: #### L 100.0100, L500.2500, L501.4021 ####[facility] [address] [place], [address] Neutrophils/100 WBC (Bld) 64.3 % Normal 47-70 [facility] Comment on above: Performed By: #### L 100.0100, L500.2500, L501.4021 ####[facility] [address] [place], [address] Nucleated RBC (Bld) [#/Vol] 0 10*3/uL Normal 0-5 [facility] Comment on above: Performed By: #### L 100.0100, L500.2500, L501.4021 ####[facility] [address] [place], [address] Platelet mean volume (Bld) [Entitic vol] 9.8 fL Normal 6.2-12.0 [facility] Comment on above: Performed By: #### L 100.0100, L500.2500, L501.4021 ####[facility] [address] [place], [address] Platelets (Bld) [#/Vol] 347 10*3/uL Normal 150-450 [facility] Comment on above: Performed By: #### L 100.0100, L500.2500, L501.4021 ####[facility] [address] [place], [address] RBC (Bld) [#/Vol] 4.53 10*6/uL Normal 4.2-5.4 [facility] Comment on above: Performed By: #### L 100.0100, L500.2500, L501.4021 ####[facility] [address] [place], [address] RDW SD 42.2 fl Normal 35.1-43.9 [facility] Comment on above: Performed By: #### L 100.0100, L500.2500, L501.4021 ####[facility] [address] [place], [address] WBC (Bld) [#/Vol] 6.5 10*3/uL Normal 4.4-11.0 [facility] Comment on above: Performed By: #### L 100.0100, L500.2500, L501.4021 ####[facility] [address] [place], [address] CTA Chest W/WO Contraston CTA Chest W/WO Contrast Normal [facility] CTA Head AND Neck W/ Contras ton 06-03-2024 CTA Head AND Neck W/ Contrast Normal [facility] Carbon dioxide, total [Moles /volume] in Central venous bloodOrdered By: Jaylon Galicia on 06-03-2024 CO2 [Moles/Vol] 22.0 mmol/L 21.0-32.0 [facility] Chloride assayOrdered By: Blanca Galicia on 06-03-2024 Chloride [Moles/Vol] 105 mmol/L 98-108 [facility] Emergency Department Summary on 06-03-2024 Emergency Department Summary Normal [facility] Eosinophil percentageOrdered By: Jaylon Galicia on 06-03-2024 Eosinophils/100 WBC (Bld) 0.5 % 0-5 [facility] Erythrocyte distribution wid th (RBC) [Ratio]Ordered By: Jaylon Galicia on 06-03-2024 Erythrocyte distribution width (RBC) [Entitic vol] 42.2 fL 35.1-43.9 [facility] Erythrocyte distribution wid th ratioOrdered By: Jaylon Galicia on 06-03-2024 Erythrocyte distribution width (RBC) [Ratio] 14.3 % 11.6-14.6 [facility] Erythrocyte distribution wid th standard deviationOrdered By: Jaylon Galicia on 06-03-2024 Erythrocyte distribution width (RBC) [Ratio] 42.2 fl 35.1-43.9 [facility] Estimation of creatinine thad aranceOrdered By: Jaylon Galicia on 06-03-2024 Estimated Creatinine Clearance Calc 225.17 ml/min 50-250 [facility] GFR/1.73 sq M.predicted janet g non-blacks MDRD (S/P/Bld) [Vol rate/Area]Ordered By: Jaylon Galicia on 06-03-2024 Estimated GFR (MDRD) Non-Af Amer 130 >60 [facility] Comment on above: mL/min/1.73m2 CKD-EP I Creatinine Equation (2020) Glomerular filtration rate ( GFR) estimation/1.73 sq m using serum, plasma, or whole bOrdered By: Jaylon Galicia on 06-03-2024 GFR/1.73 sq M.predicted among non-blacks MDRD (S/P/Bld) [Vol rate/Area] 130 mL/min/{1.73_m2} >60 [facility] Comment on above: mL/min/1.73m2 CKD-EP I Creatinine Equation (2020) Hematocrit Auto (Bld) [Volum e fraction]Ordered By: Jaylon Galicia on 06-03-2024 Hematocrit (Bld) [Volume fraction] 36.7 % Low 37-47 [facility] Hemoglobin measurementOrdere d By: Jaylon Galicia on 06-03-2024 Hemoglobin (Bld) [Mass/Vol] 12.1 g/dL 12.0-15.0 [facility] Immature granulocytes/100 WB C Auto (Bld)Ordered By: Jaylon Galicia on 06-03-2024 Immature granulocytes/100 WBC (Bld) 0.300 % 0.0-0.9 [facility] Comment on above: IG% - Immature Granu locytes (promyelocytes, myelocytes and metamyelocytes) > 1% indicates that a LEFT SHIFT is Present. L499.0042on 06-03-2024 Trop T High Sen < 6 Normal <=14 [facility] Comment on above: Performed By: #### L 499.0042 ####[facility] [address] [place], [address] L499.0043on 06-03-2024 Trop T High Sen Normal <=14 [facility] Comment on above: Result Comment: NATHAN ENT DISCHARGED Performed By: #### L 499.0043 ####[facility] [address] [place], [address] L501.4021on 06-03-2024 Trop T High Sen < 6 Normal <=14 [facility] Comment on above: Performed By: #### L 100.0100, L500.2500, L501.4021 ####[facility] [address] [place], [address] Lymphocytes Auto (Unsp spec) [#/Vol]Ordered By: Jaylon Galicia on 06-03-2024 Lymphocytes (Bld) [#/Vol] 1.66 10*3/uL 0.83-4.51 [facility] Lymphocytes/100 WBC Auto (Un sp spec)Ordered By: Jaylon Galicia on 06-03-2024 Lymphocytes/100 WBC (Bld) 25.5 % 19-41 [facility] MCV (mean corpuscular volume ) determinationOrdered By: Jaylon Galicia on 06-03-2024 MCV (RBC) [Entitic vol] 81.0 fL 81-99 [facility] Mean corpuscular hemoglobin (MCH) determinationOrdered By: Jaylon Galicia on 06-03-2024 MCH (RBC) [Entitic mass] 26.7 pg Low 27.0-32.0 [facility] Mean corpuscular hemoglobin concentration (MCHC) determinationOrdered By: Jaylon Galicia on 06-03-2024 MCHC (RBC) [Mass/Vol] 33.0 g/dL 32-36 [facility] Mean platelet volume determi nationOrdered By: Jaylon Galicia on 06-03-2024 Platelet mean volume (Bld) [Entitic vol] 9.8 fL 6.2-12.0 [facility] Monocyte percentageOrdered B y: Jaylon Galicia on 06-03-2024 Monocytes/100 WBC (Bld) 8.9 % 0-10 [facility] Neutrophil percentageOrdered By: Jaylon Galicia on 06-03-2024 Neutrophils/100 WBC (Bld) 64.3 % 47-70 [facility] Nucleated red blood cell per centageOrdered By: Jaylon Galicia on 06-03-2024 Nucleated RBC/100 WBC (Bld) [Ratio] 0 % 0-5 [facility] Platelet countOrdered By: Blanca Galicia on 06-03-2024 Platelets (Bld) [#/Vol] 347 10*3/uL 150-450 [facility] Potassium (Unsp spec) [Mass/ Vol]Ordered By: Jaylon Galicia on 06-03-2024 Potassium [Moles/Vol] 3.5 mmol/L 3.3-5.1 [facility] Potassium measurement (mass/ volume)Ordered By: Jaylon Galicia on 06-03-2024 Potassium (Unsp spec) [Mass/Vol] 3.5 mmol/L 3.3-5.1 [facility] RBC Auto (Bld) [#/Vol]Ordere d By: Jaylon Galicia on 06-03-2024 RBC (Bld) [#/Vol] 4.53 10*6/uL 4.2-5.4 [facility] Serum creatinine measurement (mass/volume)Ordered By: Jaylon Galicia on 06-03-2024 Creatinine [Mass/Vol] 0.53 mg/dL Low 0.70-1.20 [facility] Serum glucose measurement (m ass/volume)Ordered By: Jaylon Galicia on 06-03-2024 Glucose [Mass/Vol] 118 mg/dL High 70-99 [facility] Serum or plasma calcium cherelle urement (mass/volume)Ordered By: Jaylon Galicia on 06-03-2024 Calcium [Mass/Vol] 8.9 mg/dL 7.6-11.0 [facility] Serum or plasma urea nitroge n measurement (mass/volume)Ordered By: Jaylon Galicia on 06-03-2024 Urea nitrogen [Mass/Vol] 9 mg/dL 4-19 [facility] Sodium levelOrdered By: Tomy Galicia on 06-03-2024 Sodium [Moles/Vol] 139 mmol/L 133-145 [facility] Troponin T.cardiac High sens itivity method [Mass/Vol]Ordered By: Jaylon Galicia on 06-03-2024 Troponin T High Sensitivity 2 Hour < 6 ng/L <14 [facility] Troponin T High Sensitivity < 6 ng/L <14 [facility] Troponin T.cardiac [Mass/vol ume] in Serum or Plasma by High sensitivity methodOrdered By: Jaylon Galicia on 06-03-2024 Troponin T.cardiac High sensitivity method [Mass/Vol] < 6 ng/L <14 [facility] Troponin T.cardiac High sensitivity method [Mass/Vol] < 6 ng/L <14 [facility] White blood cell (WBC) count Ordered By: Jaylon Galicia on 06-03-2024 WBC (Bld) [#/Vol] 6.5 10*3/uL 4.4-11.0 [facility] Cardiology Visit Reporton Cardiology Visit Report Normal [facility] Anion gap in Serum or Plasma Ordered By: Karina Guerra on 05-23-2024 Anion gap [Moles/Vol] 11 mmol/L 5-15 [facility] BUN/creatinine ratioOrdered By: Karina Guerra on 05-23-2024 Urea nitrogen/Creatinine [Mass ratio] 16.1 mg/mg 10-20 [facility] Bilirubin, totalOrdered By: Karina Guerra on 05-23-2024 Bilirubin [Mass/Vol] 0.22 mg/dL 0.00-1.30 [facility] Carbon dioxide, total [Moles /volume] in Central venous bloodOrdered By: Karina Guerra on 05-23-2024 CO2 [Moles/Vol] 21.4 mmol/L 21.0-32.0 [facility] Chloride assayOrdered By: Blair Guerra on 05-23-2024 Chloride [Moles/Vol] 106 mmol/L 98-108 [facility] Comprehensive Metabolic Prof ilon 05-23-2024 Albumin [Mass/Vol] 3.8 g/dL Normal 3.5-5.0 [facility] Comment on above: Performed By: #### L 501.9060, L500.4050, L501.9520 ####[facility] [address] [place], [address] Albumin/Globulin [Mass ratio] 1.1 {ratio} Normal 0.9-2.4 [facility] Comment on above: Performed By: #### L 501.9060, L500.4050, L501.9520 ####[facility] [address] [place], [address] ALK PHOS 58 U/L Normal 35-104 [facility] Comment on above: Performed By: #### L 501.9060, L500.4050, L501.9520 ####[facility] [address] [place], [address] ALT [Catalytic activity/Vol] 32 U/L Normal <=34 [facility] Comment on above: Performed By: #### L 501.9060, L500.4050, L501.9520 ####[facility] [address] [place], [address] AST [Catalytic activity/Vol] 23 U/L Normal <=31 [facility] Comment on above: Performed By: #### L 501.9060, L500.4050, L501.9520 ####[facility] [address] [place], [address] Bilirubin [Mass/Vol] 0.22 mg/dL Normal 0.00-1.30 [facility] Comment on above: Performed By: #### L 501.9060, L500.4050, L501.9520 ####[facility] [address] [place], [address] BUN/CRE 16.1 RATIO Normal 10-20 [facility] Comment on above: Performed By: #### L 501.9060, L500.4050, L501.9520 ####[facility] [address] [place], [address] Calcium [Mass/Vol] 9.4 mg/dL Normal 7.6-11.0 [facility] Comment on above: Performed By: #### L 501.9060, L500.4050, L501.9520 ####[facility] [address] [place], [address] Chloride [Moles/Vol] 106 mmol/L Normal 98-108 [facility] Comment on above: Performed By: #### L 501.9060, L500.4050, L501.9520 ####[facility] [address] [place], [address] CO2 [Moles/Vol] 21.4 mmol/L Normal 21.0-32.0 [facility] Comment on above: Performed By: #### L 501.9060, L500.4050, L501.9520 ####[facility] [address] [place], [address] Creatinine [Mass/Vol] 0.53 mg/dL Low 0.70-1.20 [facility] Comment on above: Performed By: #### L 501.9060, L500.4050, L501.9520 ####[facility] [address] [place], [address] GAP 11 Normal 5-15 [facility] Comment on above: Performed By: #### L 501.9060, L500.4050, L501.9520 ####[facility] [address] [place], [address] GFR/1.73 sq M.predicted among non-blacks MDRD (S/P/Bld) [Vol rate/Area] 130 mL/min/{1.73_m2} Normal >60 [facility] Comment on above: Result Comment: mL/m in/1.73m2 CKD-EPI Creatinine Equation (2020) Performed By: #### L 501.9060, L500.4050, L501.9520 ####[facility] [address] [place], [address] Globulin (S) [Mass/Vol] 3.4 g/dL Normal 2.2-4.2 [facility] Comment on above: Performed By: #### L 501.9060, L500.4050, L501.9520 ####[facility] [address] [place], [address] Glucose [Mass/Vol] 114 mg/dL High 70-99 [facility] Comment on above: Performed By: #### L 501.9060, L500.4050, L501.9520 ####[facility] [address] [place], [address] Potassium [Moles/Vol] 4.2 mmol/L Normal 3.3-5.1 [facility] Comment on above: Performed By: #### L 501.9060, L500.4050, L501.9520 ####[facility] [address] [place], [address] Sodium [Moles/Vol] 138 mmol/L Normal 133-145 [facility] Comment on above: Performed By: #### L 501.9060, L500.4050, L501.9520 ####[facility] [address] [place], [address] T PROT 7.1 g/dL Normal 5.9-8.4 [facility] Comment on above: Performed By: #### L 501.9060, L500.4050, L501.9520 ####[facility] [address] [place], [address] Urea nitrogen [Mass/Vol] 9 mg/dL Normal 4-19 [facility] Comment on above: Performed By: #### L 501.9060, L500.4050, L501.9520 ####[facility] [address] [place], [address] GFR/1.73 sq M.predicted janet g non-blacks MDRD (S/P/Bld) [Vol rate/Area]Ordered By: Karina Guerra on 05-23-2024 Estimated GFR (MDRD) Non-Af Amer 130 >60 [facility] Comment on above: mL/min/1.73m2 CKD-EP I Creatinine Equation (2020) Glomerular filtration rate ( GFR) estimation/1.73 sq m using serum, plasma, or whole bOrdered By: Karina Guerra on 05-23-2024 GFR/1.73 sq M.predicted among non-blacks MDRD (S/P/Bld) [Vol rate/Area] 130 mL/min/{1.73_m2} >60 [facility] Comment on above: mL/min/1.73m2 CKD-EP I Creatinine Equation (2020) Laboratory - Chemistry and C hemistry - challengeOrdered By: Karina Guerra on 05-23-2024 AST [Catalytic activity/Vol] 23 U/L <32 [facility] Lithiumon 05-23-2024 LI 0.64 mmol/L Normal 0.60-1.20 [facility] Comment on above: Order Comment: [id number] Performed By: #### L 501.9060, L500.4050, L501.9520 ####[facility] [address] [place], [address] [place] levelOrdered By: Debora Guerra on 05-23-2024 [place] Level 0.64 mmol/L 0.60-1.20 [facility] No Panel InformationOrdered By: Karina Guerra on 05-23-2024 23 U/L <32 [facility] Potassium (Unsp spec) [Mass/ Vol]Ordered By: Karina Guerra on 05-23-2024 Potassium [Moles/Vol] 4.2 mmol/L 3.3-5.1 [facility] Potassium measurement (mass/ volume)Ordered By: Karina Guerra on 05-23-2024 Potassium (Unsp spec) [Mass/Vol] 4.2 mmol/L 3.3-5.1 [facility] Serum creatinine measurement (mass/volume)Ordered By: Karina Guerra on 05-23-2024 Creatinine [Mass/Vol] 0.53 mg/dL Low 0.70-1.20 [facility] Serum globulin measurementOr dered By: Karina Guerra on 05-23-2024 Globulin (S) [Mass/Vol] 3.4 g/dL 2.2-4.2 [facility] Serum glucose measurement (m ass/volume)Ordered By: Karina Guerra on 05-23-2024 Glucose [Mass/Vol] 114 mg/dL High 70-99 [facility] Serum or plasma alanine godinez otransferase (ALT) measurementOrdered By: Karina Guerra on 05-23-2024 ALT [Catalytic activity/Vol] 32 U/L <35 [facility] Serum or plasma albumin cherelle urement (mass/volume)Ordered By: Karina Guerra on 05-23-2024 Albumin [Mass/Vol] 3.8 g/dL 3.5-5.0 [facility] Serum or plasma albumin/glob ulin mass ratioOrdered By: Karina Guerra on 05-23-2024 Albumin/Globulin [Mass ratio] 1.1 {ratio} 0.9-2.4 [facility] Serum or plasma alkaline rohit sphatase measurementOrdered By: Karina Guerra on 05-23-2024 ALP [Catalytic activity/Vol] 58 U/L 35-104 [facility] Serum or plasma calcium cherelle urement (mass/volume)Ordered By: Karina Guerra on 05-23-2024 Calcium [Mass/Vol] 9.4 mg/dL 7.6-11.0 [facility] Serum or plasma urea nitroge n measurement (mass/volume)Ordered By: Karina Guerra on 05-23-2024 Urea nitrogen [Mass/Vol] 9 mg/dL 4-19 [facility] Sodium levelOrdered By: Mary Guerra on 05-23-2024 Sodium [Moles/Vol] 138 mmol/L 133-145 [facility] TSH DL <= 0.005 mIU/L QnOrde red By: Karina Guerra on 05-23-2024 Thyroid Stimulating Hormone (TSH) 2.310 uIU/mL 0.300-4.200 [facility] TSH Qn 2.310 uIU/mL 0.300-4.200 [facility] Thyroid Stim Hormone (TSH)on 05-23-2024 TSH 2.310 uIU/mL Normal 0.300-4.200 [facility] Comment on above: Performed By: #### L 501.9060, L500.4050, L501.9520 ####[facility] [address] [place], [place], [id number] Total proteinOrdered By: Debora Guerra on 05-23-2024 Protein [Mass/Vol] 7.1 g/dL 5.9-8.4 [facility] Emergency Department Summary on 05-15-2024 Emergency Department Summary Normal [facility] L499.0043on 05-15-2024 Trop T High Sen Normal <=14 [facility] Comment on above: Result Comment: Canc elled via OM: Order cancelled - Patient discharged Performed By: #### L 499.0043 ####[facility] [address] [place], [address] 12 Lead EKGon 05-14-2024 12 Lead EKG Normal [facility] Absolute lymphocyte countOrd ered By: ED PROVIDER on 05-14-2024 Lymphocytes Auto (Unsp spec) [#/Vol] 2.55 10*3/uL 0.83-4.51 [facility] Absolute neutrophil countOrd ered By: ED PROVIDER on 05-14-2024 Neutrophils (Bld) [#/Vol] 4.8 10*3/uL 2.0-7.7 [facility] Anion gap in Serum or Plasma Ordered By: Stan Lin on 05-14-2024 Anion gap [Moles/Vol] 11 mmol/L 5-15 [facility] Automated lymphocyte count a s percentage of total leukocytesOrdered By: ED PROVIDER on 05-14-2024 Lymphocytes/100 WBC Auto (Unsp spec) 31.2 % 19-41 [facility] BUN/creatinine ratioOrdered By: Stan Lin on 05-14-2024 Urea nitrogen/Creatinine [Mass ratio] 20.0 mg/mg 10- [facility] Basic Metabolic Profile (BMP )on 05-14-2024 BUN/CRE 20.0 RATIO Normal - [facility] Comment on above: Performed By: #### L 100.0100, L501.4021, L500.2500 ####[facility] [address] [place], [address] Calcium [Mass/Vol] 9.5 mg/dL Normal 7.6-11.0 [facility] Comment on above: Performed By: #### L 100.0100, L501.4021, L500.2500 ####[facility] [address] [place], [address] Chloride [Moles/Vol] 105 mmol/L Normal 98-108 [facility] Comment on above: Performed By: #### L 100.0100, L501.4021, L500.2500 ####[facility] [address] [place], [address] CO2 [Moles/Vol] 20.5 mmol/L Low 21.0-32.0 [facility] Comment on above: Performed By: #### L 100.0100, L501.4021, L500.2500 ####[facility] [address] [place], [address] Creatinine [Mass/Vol] 0.73 mg/dL Normal 0.70-1.20 [facility] Comment on above: Performed By: #### L 100.0100, L501.4021, L500.2500 ####[facility] [address] [place], [address] ECRCL 161.90 ml/min Normal 50-250 [facility] Comment on above: Performed By: #### L 100.0100, L501.4021, L500.2500 ####[facility] [address] [place], [address] GAP 11 Normal 5-15 [facility] Comment on above: Performed By: #### L 100.0100, L501.4021, L500.2500 ####[facility] [address] [place], [address] GFR/1.73 sq M.predicted among non-blacks MDRD (S/P/Bld) [Vol rate/Area] 116 mL/min/{1.73_m2} Normal >60 [facility] Comment on above: Result Comment: mL/m in/1.73m2 CKD-EPI Creatinine Equation (2020) Performed By: #### L 100.0100, L501.4021, L500.2500 ####[facility] [address] [place], [address] Glucose [Mass/Vol] 124 mg/dL High 70-99 [facility] Comment on above: Performed By: #### L 100.0100, L501.4021, L500.2500 ####[facility] [address] [place], [address] Potassium [Moles/Vol] 4.1 mmol/L Normal 3.3-5.1 [facility] Comment on above: Performed By: #### L 100.0100, L501.4021, L500.2500 ####[facility] [address] [place], [address] Sodium [Moles/Vol] 136 mmol/L Normal 133-145 [facility] Comment on above: Performed By: #### L 100.0100, L501.4021, L500.2500 ####[facility] [address] [place], [address] Urea nitrogen [Mass/Vol] 15 mg/dL Normal 4-19 [facility] Comment on above: Performed By: #### L 100.0100, L501.4021, L500.2500 ####[facility] [address] [place], [address] Basophil percentageOrdered B y: ED PROVIDER on 05-14-2024 Basophils/100 WBC (Bld) 0.4 % 0-1 [facility] CBC W/Diff, Automatedon - Absolute Lymph 2.55 X10 3/uL Normal 0.83-4.51 [facility] Comment on above: Performed By: #### L 100.0100, L501.4021, L500.2500 ####[facility] [address] [place], [address] Absolute Neut 4.8 X10 3/uL Normal 2.0-7.7 [facility] Comment on above: Performed By: #### L 100.0100, L501.4021, L500.2500 ####[facility] [address] [place], [address] Basophils/100 WBC (Bld) 0.4 % Normal 0-1 [facility] Comment on above: Performed By: #### L 100.0100, L501.4021, L500.2500 ####[facility] [address] [place], [address] Eosinophils/100 WBC (Bld) 0.4 % Normal 0-5 [facility] Comment on above: Performed By: #### L 100.0100, L501.4021, L500.2500 ####[facility] [address] [place], [address] Erythrocyte distribution width (RBC) [Ratio] 14.5 % Normal 11.6-14.6 [facility] Comment on above: Performed By: #### L 100.0100, L501.4021, L500.2500 ####[facility] [address] [place], [address] Hematocrit (Bld) [Volume fraction] 39.4 % Normal 37-47 [facility] Comment on above: Performed By: #### L 100.0100, L501.4021, L500.2500 ####[facility] [address] [place], [address] Hemoglobin (Bld) [Mass/Vol] 12.7 g/dL Normal 12.0-15.0 [facility] Comment on above: Performed By: #### L 100.0100, L501.4021, L500.2500 ####[facility] [address] [place], [address] IG% 0.100 Normal 0.0-0.9 [facility] Comment on above: Result Comment: IG% - Immature Granulocytes (promyelocytes, myelocytes andmetamyelocytes) > 1% indicates that a LEFT SHIFT is Present. Performed By: #### L 100.0100, L501.4021, L500.2500 ####[facility] [address] [place], [address] Lymphocytes/100 WBC (Bld) 31.2 % Normal 19-41 [facility] Comment on above: Performed By: #### L 100.0100, L501.4021, L500.2500 ####[facility] [address] [place], [address] MCH (RBC) [Entitic mass] 26.9 pg Low 27.0-32.0 [facility] Comment on above: Performed By: #### L 100.0100, L501.4021, L500.2500 ####[facility] [address] [place], [address] MCHC (RBC) [Mass/Vol] 32.2 g/dL Normal 32-36 [facility] Comment on above: Performed By: #### L 100.0100, L501.4021, L500.2500 ####[facility] [address] [place], [address] MCV (RBC) [Entitic vol] 83.5 fL Normal 81-99 [facility] Comment on above: Performed By: #### L 100.0100, L501.4021, L500.2500 ####[facility] [address] [place], [address] Monocytes/100 WBC (Bld) 9.0 % Normal 0-10 [facility] Comment on above: Performed By: #### L 100.0100, L501.4021, L500.2500 ####[facility] [address] [place], [address] Neutrophils/100 WBC (Bld) 58.9 % Normal 47-70 [facility] Comment on above: Performed By: #### L 100.0100, L501.4021, L500.2500 ####[facility] [address] [place], [address] Nucleated RBC (Bld) [#/Vol] 0 10*3/uL Normal 0-5 [facility] Comment on above: Performed By: #### L 100.0100, L501.4021, L500.2500 ####[facility] [address] [place], [address] Platelet mean volume (Bld) [Entitic vol] 9.0 fL Normal 6.2-12.0 [facility] Comment on above: Performed By: #### L 100.0100, L501.4021, L500.2500 ####[facility] [address] [place], [address] Platelets (Bld) [#/Vol] 374 10*3/uL Normal 150-450 [facility] Comment on above: Performed By: #### L 100.0100, L501.4021, L500.2500 ####[facility] [address] [place], [address] RBC (Bld) [#/Vol] 4.72 10*6/uL Normal 4.2-5.4 [facility] Comment on above: Performed By: #### L 100.0100, L501.4021, L500.2500 ####[facility] [address] [place], [address] RDW SD 43.8 fl Normal 35.1-43.9 [facility] Comment on above: Performed By: #### L 100.0100, L501.4021, L500.2500 ####[facility] [address] [place], [address] WBC (Bld) [#/Vol] 8.2 10*3/uL Normal 4.4-11.0 [facility] Comment on above: Performed By: #### L 100.0100, L501.4021, L500.2500 ####[facility] [address] [place], [address] Carbon dioxide, total [Moles /volume] in Central venous bloodOrdered By: Stan Lin on 05-14-2024 CO2 [Moles/Vol] 20.5 mmol/L Low 21.0-32.0 [facility] Chest 1 View (Portable)on Chest 1 View (Portable) Normal [facility] Chloride assayOrdered By: Doroteo Lin on 05-14-2024 Chloride [Moles/Vol] 105 mmol/L 98-108 [facility] Eosinophil percentageOrdered By: ED PROVIDER on 05-14-2024 Eosinophils/100 WBC (Bld) 0.4 % 0-5 [facility] Erythrocyte distribution wid th ratioOrdered By: ED PROVIDER on 05-14-2024 Erythrocyte distribution width (RBC) [Ratio] 14.5 % 11.6-14.6 [facility] Erythrocyte distribution wid th standard deviationOrdered By: ED PROVIDER on 05-14-2024 Erythrocyte distribution width (RBC) [Entitic vol] 43.8 fL 35.1-43.9 [facility] Erythrocyte distribution width (RBC) [Ratio] 43.8 fl 35.1-43.9 [facility] Estimation of creatinine thad aranceOrdered By: Stan Lin on 05-14-2024 Estimated Creatinine Clearance Calc 161.90 ml/min 50-250 [facility] GFR/1.73 sq M.predicted janet g non-blacks MDRD (S/P/Bld) [Vol rate/Area]Ordered By: Stan Lin on 05-14-2024 Estimated GFR (MDRD) Non-Af Amer 116 >60 [facility] Comment on above: mL/min/1.73m2 CKD-EP I Creatinine Equation (2020) Glomerular filtration rate ( GFR) estimation/1.73 sq m using serum, plasma, or whole bOrdered By: Stan Lin on 05-14-2024 GFR/1.73 sq M.predicted among non-blacks MDRD (S/P/Bld) [Vol rate/Area] 116 mL/min/{1.73_m2} >60 [facility] Comment on above: mL/min/1.73m2 CKD-EP I Creatinine Equation (2020) Hematocrit Auto (Bld) [Volum e fraction]Ordered By: ED PROVIDER on 05-14-2024 Hematocrit (Bld) [Volume fraction] 39.4 % 37-47 [facility] Hemoglobin measurementOrdere d By: ED PROVIDER on 05-14-2024 Hemoglobin (Bld) [Mass/Vol] 12.7 g/dL 12.0-15.0 [facility] Immature granulocytes/100 WB C Auto (Bld)Ordered By: ED PROVIDER on 05-14-2024 Immature granulocytes/100 WBC (Bld) 0.100 % 0.0-0.9 [facility] Comment on above: IG% - Immature Granu locytes (promyelocytes, myelocytes and metamyelocytes) > 1% indicates that a LEFT SHIFT is Present. L499.0042on 05-14-2024 Trop T High Sen < 6 Normal <=14 [facility] Comment on above: Performed By: #### L 499.0042 ####[facility] [address] [place], [address] L501.4021on 05-14-2024 Trop T High Sen < 6 Normal <=14 [facility] Comment on above: Performed By: #### L 100.0100, L501.4021, L500.2500 ####[facility] [address] [place], [address] Lymphocytes Auto (Unsp spec) [#/Vol]Ordered By: ED PROVIDER on 05-14-2024 Lymphocytes (Bld) [#/Vol] 2.55 10*3/uL 0.83-4.51 [facility] Lymphocytes/100 WBC Auto (Un sp spec)Ordered By: ED PROVIDER on 05-14-2024 Lymphocytes/100 WBC (Bld) 31.2 % 19-41 [facility] MCV (mean corpuscular volume ) determinationOrdered By: ED PROVIDER on 05-14-2024 MCV (RBC) [Entitic vol] 83.5 fL 81-99 [facility] Mean corpuscular hemoglobin (MCH) determinationOrdered By: ED PROVIDER on 05-14-2024 MCH (RBC) [Entitic mass] 26.9 pg Low 27.0-32.0 [facility] Mean corpuscular hemoglobin concentration (MCHC) determinationOrdered By: ED PROVIDER on 05-14-2024 MCHC (RBC) [Mass/Vol] 32.2 g/dL 32-36 [facility] Mean platelet volume determi nationOrdered By: ED PROVIDER on 05-14-2024 Platelet mean volume (Bld) [Entitic vol] 9.0 fL 6.2-12.0 [facility] Monocyte percentageOrdered B y: ED PROVIDER on 05-14-2024 Monocytes/100 WBC (Bld) 9.0 % 0-10 [facility] Neutrophil percentageOrdered By: ED PROVIDER on 05-14-2024 Neutrophils/100 WBC (Bld) 58.9 % 47-70 [facility] No Panel InformationOrdered By: ED PROVIDER on 05-14-2024 Troponin T High Sensitivity < 6 ng/L <14 [facility] < 6 ng/L <14 [facility] Nucleated red blood cell per centageOrdered By: ED PROVIDER on 05-14-2024 Nucleated RBC/100 WBC (Bld) [Ratio] 0 % 0-5 [facility] Platelet countOrdered By: ED PROVIDER on 05-14-2024 Platelets (Bld) [#/Vol] 374 10*3/uL 150-450 [facility] Potassium (Unsp spec) [Mass/ Vol]Ordered By: Stan Lin on 05-14-2024 Potassium [Moles/Vol] 4.1 mmol/L 3.3-5.1 [facility] Potassium measurement (mass/ volume)Ordered By: Stan Lin on 05-14-2024 Potassium (Unsp spec) [Mass/Vol] 4.1 mmol/L 3.3-5.1 [facility] RBC Auto (Bld) [#/Vol]Ordere d By: ED PROVIDER on 05-14-2024 RBC (Bld) [#/Vol] 4.72 10*6/uL 4.2-5.4 [facility] Serum creatinine measurement (mass/volume)Ordered By: Stan Lin on 05-14-2024 Creatinine [Mass/Vol] 0.73 mg/dL 0.70-1.20 [facility] Serum glucose measurement (m ass/volume)Ordered By: Stan Lin on 05-14-2024 Glucose [Mass/Vol] 124 mg/dL High 70-99 [facility] Serum or plasma calcium cherelle urement (mass/volume)Ordered By: Stan Lin on 05-14-2024 Calcium [Mass/Vol] 9.5 mg/dL 7.6-11.0 [facility] Serum or plasma urea nitroge n measurement (mass/volume)Ordered By: Stan Lin on 05-14-2024 Urea nitrogen [Mass/Vol] 15 mg/dL 4-19 [facility] Sodium levelOrdered By: Jeanne Lin on 05-14-2024 Sodium [Moles/Vol] 136 mmol/L 133-145 [facility] Troponin T.cardiac High sens itivity method [Mass/Vol]Ordered By: Stan Lin on 05-14-2024 Troponin T High Sensitivity 2 Hour < 6 ng/L <14 [facility] Troponin T.cardiac [Mass/vol ume] in Serum or Plasma by High sensitivity methodOrdered By: Stan Lin on 05-14-2024 Troponin T.cardiac High sensitivity method [Mass/Vol] < 6 ng/L <14 [facility] White blood cell (WBC) count Ordered By: ED PROVIDER on 05-14-2024 WBC (Bld) [#/Vol] 8.2 10*3/uL 4.4-11.0 [facility] Abdomen/Pelvis W IV Cont ONL Yon 05-08-2024 Abdomen/Pelvis W IV Cont ONLY Normal [facility] Absolute lymphocyte countOrd ered By: Stan Lin on 05-08-2024 Lymphocytes Auto (Unsp spec) [#/Vol] 2.37 10*3/uL 0.83-4.51 [facility] Absolute neutrophil countOrd ered By: Stan Lni on 05-08-2024 Neutrophils (Bld) [#/Vol] 4.5 10*3/uL 2.0-7.7 [facility] Anion gap in Serum or Plasma Ordered By: Stan Lin on 05-08-2024 Anion gap [Moles/Vol] 8 mmol/L 5-15 [facility] Automated lymphocyte count a s percentage of total leukocytesOrdered By: Stan Lin on 05-08-2024 Lymphocytes/100 WBC Auto (Unsp spec) 30.5 % [facility] BUN/creatinine ratioOrdered By: Stan Lin on 05-08-2024 Urea nitrogen/Creatinine [Mass ratio] 26.4 mg/mg High 12-08 [facility] Basophil percentageOrdered B y: Stan Delia on 05-08-2024 Basophils/100 WBC (Bld) 0.3 % 0-1 [facility] Beta HCG ( test) Ql Ordered By: Stan Lin on 05-08-2024 Serum Test, Qualitative Negative [facility] Bilirubin Test strip Ql (U)O rdered By: Stan Lin on 05-08-2024 Bilirubin Ql (U) Negative Negative [facility] Bilirubin, totalOrdered By: Stan Lin on 05-08-2024 Bilirubin [Mass/Vol] 0.21 mg/dL 0.00-1.30 [facility] CBC W/Diff, Automatedon 04-20 Absolute Lymph 2.37 X10 3/uL Normal 0.83-4.51 [facility] Comment on above: Performed By: #### L 500.4050, L100.0100, L700.6800, L501.2450 ####[facility] [address] [place], [address] Absolute Neut 4.5 X10 3/uL Normal 2.0-7.7 [facility] Comment on above: Performed By: #### L 500.4050, L100.0100, L700.6800, L501.2450 ####[facility] [address] [place], [address] Basophils/100 WBC (Bld) 0.3 % Normal 0-1 [facility] Comment on above: Performed By: #### L 500.4050, L100.0100, L700.6800, L501.2450 ####[facility] [address] [place], [address] Eosinophils/100 WBC (Bld) 0.5 % Normal 0-5 [facility] Comment on above: Performed By: #### L 500.4050, L100.0100, L700.6800, L501.2450 ####[facility] [address] [place], [address] Erythrocyte distribution width (RBC) [Ratio] 14.1 % Normal 11.6-14.6 [facility] Comment on above: Performed By: #### L 500.4050, L100.0100, L700.6800, L501.2450 ####[facility] [address] [place], [address] Hematocrit (Bld) [Volume fraction] 37.3 % Normal 37-47 [facility] Comment on above: Performed By: #### L 500.4050, L100.0100, L700.6800, L501.2450 ####[facility] [address] [place], [address] Hemoglobin (Bld) [Mass/Vol] 12.5 g/dL Normal 12.0-15.0 [facility] Comment on above: Performed By: #### L 500.4050, L100.0100, L700.6800, L501.2450 ####[facility] [address] [place], [address] IG% 0.300 Normal 0.0-0.9 [facility] Comment on above: Result Comment: IG% - Immature Granulocytes (promyelocytes, myelocytes andmetamyelocytes) > 1% indicates that a LEFT SHIFT is Present. Performed By: #### L 500.4050, L100.0100, L700.6800, L501.2450 ####[facility] [address] [place], [address] Lymphocytes/100 WBC (Bld) 30.5 % Normal 19-41 [facility] Comment on above: Performed By: #### L 500.4050, L100.0100, L700.6800, L501.2450 ####[facility] [address] [place], [address] MCH (RBC) [Entitic mass] 27.9 pg Normal 27.0-32.0 [facility] Comment on above: Performed By: #### L 500.4050, L100.0100, L700.6800, L501.2450 ####[facility] [address] [place], [address] MCHC (RBC) [Mass/Vol] 33.5 g/dL Normal 32-36 [facility] Comment on above: Performed By: #### L 500.4050, L100.0100, L700.6800, L501.2450 ####[facility] [address] [place], [address] MCV (RBC) [Entitic vol] 83.3 fL Normal 81-99 [facility] Comment on above: Performed By: #### L 500.4050, L100.0100, L700.6800, L501.2450 ####[facility] [address] [place], [address] Monocytes/100 WBC (Bld) 10.3 % High 0-10 [facility] Comment on above: Performed By: #### L 500.4050, L100.0100, L700.6800, L501.2450 ####[facility] [address] [place], [address] Neutrophils/100 WBC (Bld) 58.1 % Normal 47-70 [facility] Comment on above: Performed By: #### L 500.4050, L100.0100, L700.6800, L501.2450 ####[facility] [address] [place], [address] Nucleated RBC (Bld) [#/Vol] 0 10*3/uL Normal 0-5 [facility] Comment on above: Performed By: #### L 500.4050, L100.0100, L700.6800, L501.2450 ####[facility] [address] [place], [address] Platelet mean volume (Bld) [Entitic vol] 9.0 fL Normal 6.2-12.0 [facility] Comment on above: Performed By: #### L 500.4050, L100.0100, L700.6800, L501.2450 ####[facility] [address] [place], [address] Platelets (Bld) [#/Vol] 356 10*3/uL Normal 150-450 [facility] Comment on above: Performed By: #### L 500.4050, L100.0100, L700.6800, L501.2450 ####[facility] [address] [place], [address] RBC (Bld) [#/Vol] 4.48 10*6/uL Normal 4.2-5.4 [facility] Comment on above: Performed By: #### L 500.4050, L100.0100, L700.6800, L501.2450 ####[facility] [address] [place], [address] RDW SD 43.0 fl Normal 35.1-43.9 [facility] Comment on above: Performed By: #### L 500.4050, L100.0100, L700.6800, L501.2450 ####[facility] [address] [place], [address] WBC (Bld) [#/Vol] 7.8 10*3/uL Normal 4.4-11.0 [facility] Comment on above: Performed By: #### L 500.4050, L100.0100, L700.6800, L501.2450 ####[facility] [address] [place], [address] Carbon dioxide, total [Moles /volume] in Central venous bloodOrdered By: Stan Lin on 05-08-2024 CO2 [Moles/Vol] 23.9 mmol/L 21.0-32.0 [facility] Chloride assayOrdered By: Doroteo Lin on 05-08-2024 Chloride [Moles/Vol] 107 mmol/L 98-108 [facility] Comprehensive Metabolic Prof ilon 05-08-2024 Albumin [Mass/Vol] 3.9 g/dL Normal 3.5-5.0 [facility] Comment on above: Performed By: #### L 500.4050, L100.0100, L700.6800, L501.2450 ####[facility] [address] [place], [address] Albumin/Globulin [Mass ratio] 1.4 {ratio} Normal 0.9-2.4 [facility] Comment on above: Performed By: #### L 500.4050, L100.0100, L700.6800, L501.2450 ####[facility] [address] [place], [address] ALK PHOS 60 U/L Normal 35-104 [facility] Comment on above: Performed By: #### L 500.4050, L100.0100, L700.6800, L501.2450 ####[facility] [address] [place], [address] ALT [Catalytic activity/Vol] 26 U/L Normal <=34 [facility] Comment on above: Performed By: #### L 500.4050, L100.0100, L700.6800, L501.2450 ####[facility] [address] [place], [address] AST [Catalytic activity/Vol] 14 U/L Normal <=31 [facility] Comment on above: Performed By: #### L 500.4050, L100.0100, L700.6800, L501.2450 ####[facility] [address] [place], [address] Bilirubin [Mass/Vol] 0.21 mg/dL Normal 0.00-1.30 [facility] Comment on above: Performed By: #### L 500.4050, L100.0100, L700.6800, L501.2450 ####[facility] [address] [place], [address] BUN/CRE 26.4 RATIO High 10-20 [facility] Comment on above: Performed By: #### L 500.4050, L100.0100, L700.6800, L501.2450 ####[facility] [address] [place], [address] Calcium [Mass/Vol] 9.2 mg/dL Normal 7.6-11.0 [facility] Comment on above: Performed By: #### L 500.4050, L100.0100, L700.6800, L501.2450 ####[facility] [address] [place], [address] Chloride [Moles/Vol] 107 mmol/L Normal 98-108 [facility] Comment on above: Performed By: #### L 500.4050, L100.0100, L700.6800, L501.2450 ####[facility] [address] [place], [address] CO2 [Moles/Vol] 23.9 mmol/L Normal 21.0-32.0 [facility] Comment on above: Performed By: #### L 500.4050, L100.0100, L700.6800, L501.2450 ####[facility] [address] [place], [address] Creatinine [Mass/Vol] 0.48 mg/dL Low 0.70-1.20 [facility] Comment on above: Performed By: #### L 500.4050, L100.0100, L700.6800, L501.2450 ####[facility] [address] [place], [address] ECRCL 243.10 ml/min Normal 50-250 [facility] Comment on above: Performed By: #### L 500.4050, L100.0100, L700.6800, L501.2450 ####[facility] [address] [place], [address] GAP 8 Normal 5-15 [facility] Comment on above: Performed By: #### L 500.4050, L100.0100, L700.6800, L501.2450 ####[facility] [address] [place], [address] GFR/1.73 sq M.predicted among non-blacks MDRD (S/P/Bld) [Vol rate/Area] 133 mL/min/{1.73_m2} Normal >60 [facility] Comment on above: Result Comment: mL/m in/1.73m2 CKD-EPI Creatinine Equation (2020) Performed By: #### L 500.4050, L100.0100, L700.6800, L501.2450 ####[facility] [address] [place], [address] Globulin (S) [Mass/Vol] 2.7 g/dL Normal 2.2-4.2 [facility] Comment on above: Performed By: #### L 500.4050, L100.0100, L700.6800, L501.2450 ####[facility] [address] [place], [address] Glucose [Mass/Vol] 107 mg/dL High 70-99 [facility] Comment on above: Performed By: #### L 500.4050, L100.0100, L700.6800, L501.2450 ####[facility] [address] [place], [address] Potassium [Moles/Vol] 4.0 mmol/L Normal 3.3-5.1 [facility] Comment on above: Performed By: #### L 500.4050, L100.0100, L700.6800, L501.2450 ####[facility] [address] [place], [address] Sodium [Moles/Vol] 139 mmol/L Normal 133-145 [facility] Comment on above: Performed By: #### L 500.4050, L100.0100, L700.6800, L501.2450 ####[facility] [address] [place], [address] T PROT 6.6 g/dL Normal 5.9-8.4 [facility] Comment on above: Performed By: #### L 500.4050, L100.0100, L700.6800, L501.2450 ####[facility] [address] [place], [address] Urea nitrogen [Mass/Vol] 13 mg/dL Normal 4-19 [facility] Comment on above: Performed By: #### L 500.4050, L100.0100, L700.6800, L501.2450 ####[facility] [address] [place], [address] Emergency Department Summary on 05-08-2024 Emergency Department Summary Normal [facility] Eosinophil percentageOrdered By: Stan Lin on 05-08-2024 Eosinophils/100 WBC (Bld) 0.5 % 0-5 [facility] Epithelial cells.squamous LM Ql (Urine sed)Ordered By: Stan Lin on 03-20-2025 Epithelial cells.squamous LM.HPF (Urine sed) [#/Area] 0 /[HPF] 5-10 [facility] Erythrocyte distribution wid th ratioOrdered By: Stan Lin on 05-08-2024 Erythrocyte distribution width (RBC) [Ratio] 14.1 % 11.6-14.6 [facility] Erythrocyte distribution wid th standard deviationOrdered By: Stan Lin on 05-08-2024 Erythrocyte distribution width (RBC) [Entitic vol] 43.0 fL 35.1-43.9 [facility] Erythrocyte distribution width (RBC) [Ratio] 43.0 fl 35.1-43.9 [facility] Estimation of creatinine thad aranceOrdered By: Stan Lin on 05-08-2024 Estimated Creatinine Clearance Calc 243.10 ml/min 50-250 [facility] GFR/1.73 sq M.predicted janet g non-blacks MDRD (S/P/Bld) [Vol rate/Area]Ordered By: Stan Lin on 05-08-2024 Estimated GFR (MDRD) Non-Af Amer 133 >60 [facility] Comment on above: mL/min/1.73m2 CKD-EP I Creatinine Equation (2020) Glomerular filtration rate ( GFR) estimation/1.73 sq m using serum, plasma, or whole bOrdered By: Stan Lin on 05-08-2024 GFR/1.73 sq M.predicted among non-blacks MDRD (S/P/Bld) [Vol rate/Area] 133 mL/min/{1.73_m2} >60 [facility] Comment on above: mL/min/1.73m2 CKD-EP I Creatinine Equation (2020) Glucose Ql (U)Ordered By: Doroteo Lin on 05-08-2024 Urine Glucose (UA) Normal mg/dl Normal [facility] Hematocrit Auto (Bld) [Volum e fraction]Ordered By: Stan Lin on 05-08-2024 Hematocrit (Bld) [Volume fraction] 37.3 % 37-47 [facility] Hemoglobin measurementOrdere d By: Stan Lin on 05-08-2024 Hemoglobin (Bld) [Mass/Vol] 12.5 g/dL 12.0-15.0 [facility] Immature granulocytes/100 WB C Auto (Bld)Ordered By: Stan Lin on 05-08-2024 Immature granulocytes/100 WBC (Bld) 0.300 % 0.0-0.9 [facility] Comment on above: IG% - Immature Granu locytes (promyelocytes, myelocytes and metamyelocytes) > 1% indicates that a LEFT SHIFT is Present. Ketones Test strip Ql (U)Ord ered By: Stan Lin on 05-08-2024 Ketones Ql (U) Negative Negative [facility] - Chemistry and C hemistry - challengeOrdered By: Stan Lin on 05-08-2024 AST [Catalytic activity/Vol] 14 U/L <32 [facility] Lipaseon 05-08-2024 Lipase [Catalytic activity/Vol] 32 U/L Normal 13-75 [facility] Comment on above: Result Comment: Plea se note:LIPASE revised reference range effective 22.New Lipase methodology. Expected to produce lower valuesthan the previous assay method.NEW Reference Range: 13 - 75 U/L Performed By: #### L 500.4050, L100.0100, L700.6800, L501.2450 ####[facility] [address] [place], [place], [id number] Lipase measurementOrdered By : Stan Lin on 05-08-2024 Lipase [Catalytic activity/Vol] 32 U/L 13-75 [facility] Comment on above: Please note:LIPASE r evised reference range effective 22. New Lipase methodology. Expected to produce lower values than the previous assay method. NEW Reference Range: 13 - 75 U/L Lymphocytes Auto (Unsp spec) [#/Vol]Ordered By: Stan Lni on 05-08-2024 Lymphocytes (Bld) [#/Vol] 2.37 10*3/uL 0.83-4.51 [facility] Lymphocytes/100 WBC Auto (Un sp spec)Ordered By: Stan Lin on 05-08-2024 Lymphocytes/100 WBC (Bld) 30.5 % 19-41 [facility] MCV (mean corpuscular volume ) determinationOrdered By: Stan Lin on 05-08-2024 MCV (RBC) [Entitic vol] 83.3 fL 81-99 [facility] Mean corpuscular hemoglobin (MCH) determinationOrdered By: Stan Lin on 05-08-2024 MCH (RBC) [Entitic mass] 27.9 pg 27.0-32.0 [facility] Mean corpuscular hemoglobin concentration (MCHC) determinationOrdered By: Stan Lin on 05-08-2024 MCHC (RBC) [Mass/Vol] 33.5 g/dL 32-36 [facility] Comment on above: Delta: 31.7 on 05/07 Mean platelet volume determi nationOrdered By: Stan Lin on 05-08-2024 Platelet mean volume (Bld) [Entitic vol] 9.0 fL 6.2-12.0 [facility] Microscopic analysis of urin e for red blood cells (RBC)Ordered By: Stan Lin on 05-08-2024 Microscopic analysis of urine for red blood cells (RBC) 0-5 SEEN /hpf 0-5 [facility] Urine RBC 0-5 SEEN /hpf 0-5 [facility] Monocyte percentageOrdered B y: Stan Lin on 05-08-2024 Monocytes/100 WBC (Bld) 10.3 % High 0-10 [facility] Mucus LM Ql (Urine sed)Order ed By: Stan Lin on 05-08-2024 Mucus Ql (Urine sed) 0 SEEN /hpf [facility] Neutrophil percentageOrdered By: Stan Lin on 05-08-2024 Neutrophils/100 WBC (Bld) 58.1 % 47-70 [facility] Nitrite Test strip Ql (U)Ord ered By: Stan Lin on 05-08-2024 Nitrite Ql (U) Negative Negative [facility] No Panel InformationOrdered By: Stan Lin on 05-08-2024 14 U/L <32 [facility] Nucleated red blood cell per centageOrdered By: Stan Lin on 05-08-2024 Nucleated RBC/100 WBC (Bld) [Ratio] 0 % 0-5 [facility] Platelet countOrdered By: Doroteo Lin on 05-08-2024 Platelets (Bld) [#/Vol] 356 10*3/uL 150-450 [facility] Potassium (Unsp spec) [Mass/ Vol]Ordered By: Stan Lin on 05-08-2024 Potassium [Moles/Vol] 4.0 mmol/L 3.3-5.1 [facility] Potassium measurement (mass/ volume)Ordered By: Stan Lin on 05-08-2024 Potassium (Unsp spec) [Mass/Vol] 4.0 mmol/L 3.3-5.1 [facility] ,Serum,hCG Quali.on 05-08-2024 HCG, SERUM QUAL Negative Normal [facility] Comment on above: Performed By: #### L 500.4050, L100.0100, L700.6800, L501.2450 ####[facility] [address] [place], [address] Protein Test strip Ql (U)Ord ered By: Stan Lin on 05-08-2024 Protein Ql (U) 15 mg/dl High Negative [facility] RBC Auto (Bld) [#/Vol]Ordere d By: Stan Lin on 05-08-2024 RBC (Bld) [#/Vol] 4.48 10*6/uL 4.2-5.4 [facility] Serum beta-hCG test, qualita tiveOrdered By: Stan Lin on 05-08-2024 Beta HCG ( test) Ql Negative [facility] Serum creatinine measurement (mass/volume)Ordered By: Stan Lin on 05-08-2024 Creatinine [Mass/Vol] 0.48 mg/dL Low 0.70-1.20 [facility] Serum globulin measurementOr dered By: Stan Lin on 05-08-2024 Globulin (S) [Mass/Vol] 2.7 g/dL 2.2-4.2 [facility] Serum glucose measurement (m ass/volume)Ordered By: Stan Lin on 05-08-2024 Glucose [Mass/Vol] 107 mg/dL High 70-99 [facility] Serum or plasma alanine godinez otransferase (ALT) measurementOrdered By: Stan Lin on 05-08-2024 ALT [Catalytic activity/Vol] 26 U/L <35 [facility] Serum or plasma albumin cherelle urement (mass/volume)Ordered By: Stan Lin on 05-08-2024 Albumin [Mass/Vol] 3.9 g/dL 3.5-5.0 [facility] Serum or plasma albumin/glob ulin mass ratioOrdered By: Stan Lin on 05-08-2024 Albumin/Globulin [Mass ratio] 1.4 {ratio} 0.9-2.4 [facility] Serum or plasma alkaline rohit sphatase measurementOrdered By: Stan Lin on 05-08-2024 ALP [Catalytic activity/Vol] 60 U/L 35-104 [facility] Serum or plasma calcium cherelle urement (mass/volume)Ordered By: Stan Lin on 05-08-2024 Calcium [Mass/Vol] 9.2 mg/dL 7.6-11.0 [facility] Serum or plasma urea nitroge n measurement (mass/volume)Ordered By: Stan Lin on 05-08-2024 Urea nitrogen [Mass/Vol] 13 mg/dL 4-19 [facility] Sodium levelOrdered By: Jeanne Lin on 05-08-2024 Sodium [Moles/Vol] 139 mmol/L 133-145 [facility] Squamous epithelial cells de tection in urine sediment by light microscopyOrdered By: Stan Lin on 05-08-2024 Epithelial cells.squamous LM Ql (Urine sed) 0-5 SEEN /hpf 5-10 [facility] Total proteinOrdered By: Bhargav Lin on 05-08-2024 Protein [Mass/Vol] 6.6 g/dL 5.9-8.4 [facility] Transitional cells LM Ql (Ur ine sed)Ordered By: Stan Lin on 05-08-2024 Urine Transitional Epithelial Cells 0-5 SEEN /hpf 0-5 [facility] Transitional cells detection in urine sediment by light microscopyOrdered By: Stan Lin on 05-08-2024 Transitional cells LM Ql (Urine sed) 0-5 SEEN /hpf 0-5 [facility] Urinalysis, Completeon 05-08 WBC 5-10 SEEN Normal 0-5 [facility] Comment on above: Order Comment: COLLE CTOR TO SPECIFY Performed By: #### L 400.0001 ####[facility] [address] [place], [address] EPI,TRANSITION 0-5 SEEN Normal 0-5 [facility] Comment on above: Order Comment: SELENA CTOR TO SPECIFY Performed By: #### L 400.0001 ####[facility] [address] [place], [address] RBC 0-5 SEEN Normal 0-5 [facility] Comment on above: Order Comment: SELENA CTOR TO SPECIFY Performed By: #### L 400.0001 ####[facility] [address] [place], [address] BACTERIA 1+ /hpf Normal None Seen [facility] Comment on above: Order Comment: SELENA CTOR TO SPECIFY Performed By: #### L 400.0001 ####[facility] [address] [place], [address] EPI,SQUAMOUS 0-5 SEEN Normal 5-10 [facility] Comment on above: Order Comment: SELENA CTOR TO SPECIFY Performed By: #### L 400.0001 ####[facility] [address] [place], [address] Mucus Ql (Urine sed) 0 SEEN Normal [facility] Comment on above: Order Comment: SELENA CTOR TO SPECIFY Performed By: #### L 400.0001 ####[facility] [address] [place], [address] Urine blood detectionOrdered By: Stan Lin on 05-08-2024 Urine Occult Blood 10 /ul High Negative [facility] Urine clarityOrdered By: Bhargav Lin on 05-08-2024 Clarity (U) Clear Clear [facility] Urine color determinationOrd ered By: Stan Lin on 05-08-2024 Color (U) Yellow Yellow [facility] Urine glucose detectionOrder ed By: Stan Lin on 05-08-2024 Glucose Ql (U) Normal mg/dl Normal [facility] Urine leukocyte esterase det ection by dipstickOrdered By: Stan Lin on 05-08-2024 Leukocyte esterase Test strip Ql (U) 25 /ul High Negative [facility] Urine pHOrdered By: Stan patricia on 05-08-2024 pH (U) 7.0 [pH] 5.0 - 8.0 [facility] Urine sediment bacteria coun t by microscopy (number/high power field)Ordered By: Stan Lin on 05-08-2024 Bacteria LM.HPF (Urine sed) [#/Area] 1 /[HPF] None Seen [facility] Urine specific gravity measu rementOrdered By: Stan Lin on 05-08-2024 Specific gravity (U) [Rel density] 1.005 1.002-1.030 [facility] Urine urobilinogen measureme ntOrdered By: Stan Lin on 05-08-2024 Urobilinogen Ql (U) Normal mg/dl Normal [facility] Urobilinogen Ql (U)Ordered B y: Stan Lin on 05-08-2024 Urine Urobilinogen Normal mg/dl Normal [facility] White blood cell (WBC) count Ordered By: Stan Lin on 05-08-2024 WBC (Bld) [#/Vol] 7.8 10*3/uL 4.4-11.0 [facility] White blood cell countOrdere d By: Stan Lin on 05-08-2024 Urine WBC 5-10 SEEN /hpf 0-5 [facility] White blood cell count 5-10 SEEN /hpf 0-5 [facility] Absolute lymphocyte countOrd ered By: Karuna Lim on 05-07-2024 Lymphocytes Auto (Unsp spec) [#/Vol] 1.95 10*3/uL 0.83-4.51 [facility] Absolute neutrophil countOrd ered By: Karuna Lim on 05-07-2024 Neutrophils (Bld) [#/Vol] 4.9 10*3/uL 2.0-7.7 [facility] Automated lymphocyte count a s percentage of total leukocytesOrdered By: Karuna Lim on 05-07-2024 Lymphocytes/100 WBC Auto (Unsp spec) 25.4 % 19-41 [facility] Basophil percentageOrdered B y: Karuna Beam on 05-07-2024 Basophils/100 WBC (Bld) 0.5 % 0-1 [facility] CBC W/Diff, Automatedon 04-19 Absolute Lymph 1.95 X10 3/uL Normal 0.83-4.51 [facility] Comment on above: Performed By: #### L 501.9985, L100.0100 ####[facility] [address] [place], [address] Absolute Neut 4.9 X10 3/uL Normal 2.0-7.7 [facility] Comment on above: Performed By: #### L 501.9985, L100.0100 ####[facility] [address] [place], [address] Basophils/100 WBC (Bld) 0.5 % Normal 0-1 [facility] Comment on above: Performed By: #### L 501.9985, L100.0100 ####[facility] [address] [place], [address] Eosinophils/100 WBC (Bld) 0.4 % Normal 0-5 [facility] Comment on above: Performed By: #### L 501.9985, L100.0100 ####[facility] [address] [place], [address] Erythrocyte distribution width (RBC) [Ratio] 14.0 % Normal 11.6-14.6 [facility] Comment on above: Performed By: #### L 501.9985, L100.0100 ####[facility] [address] [place], [address] Hematocrit (Bld) [Volume fraction] 40.1 % Normal 37-47 [facility] Comment on above: Performed By: #### L 501.9985, L100.0100 ####[facility] [address] [place], [address] Hemoglobin (Bld) [Mass/Vol] 12.7 g/dL Normal 12.0-15.0 [facility] Comment on above: Performed By: #### L 501.85, L100.0100 ####[facility] [address] [place], [address] IG% 0.300 Normal 0.0-0.9 [facility] Comment on above: Result Comment: IG% - Immature Granulocytes (promyelocytes, myelocytes andmetamyelocytes) > 1% indicates that a LEFT SHIFT is Present. Performed By: #### L 501.85, L100.0100 ####[facility] [address] [place], [address] Lymphocytes/100 WBC (Bld) 25.4 % Normal 19-41 [facility] Comment on above: Performed By: #### L 501.9984, L100.0100 ####[facility] [address] [place], [address] MCH (RBC) [Entitic mass] 26.9 pg Low 27.0-32.0 [facility] Comment on above: Performed By: #### L 501.85, L100.0100 ####[facility] [address] [place], [address] MCHC (RBC) [Mass/Vol] 31.7 g/dL Low 32-36 [facility] Comment on above: Performed By: #### L 501.9985, L100.0100 ####[facility] [address] [place], [address] MCV (RBC) [Entitic vol] 85.0 fL Normal 81-99 [facility] Comment on above: Performed By: #### L 501.9985, L100.0100 ####[facility] [address] [place], [address] Monocytes/100 WBC (Bld) 9.1 % Normal 0-10 [facility] Comment on above: Performed By: #### L 501.9985, L100.0100 ####[facility] [address] [place], [address] Neutrophils/100 WBC (Bld) 64.3 % Normal 47-70 [facility] Comment on above: Performed By: #### L 501.9985, L100.0100 ####[facility] [address] [place], [address] Nucleated RBC (Bld) [#/Vol] 0 10*3/uL Normal 0-5 [facility] Comment on above: Performed By: #### L 501.9985, L100.0100 ####[facility] [address] [place], [address] Platelet mean volume (Bld) [Entitic vol] 9.4 fL Normal 6.2-12.0 [facility] Comment on above: Performed By: #### L 501.85, L100.0100 ####[facility] [address] [place], [address] Platelets (Bld) [#/Vol] 380 10*3/uL Normal 150-450 [facility] Comment on above: Performed By: #### L 501.85, L100.0100 ####[facility] [address] [place], [address] RBC (Bld) [#/Vol] 4.72 10*6/uL Normal 4.2-5.4 [facility] Comment on above: Performed By: #### L 501.9985, L100.0100 ####[facility] [address] [place], [address] RDW SD 43.4 fl Normal 35.1-43.9 [facility] Comment on above: Performed By: #### L 501.9985, L100.0100 ####[facility] [address] [place], [address] WBC (Bld) [#/Vol] 7.7 10*3/uL Normal 4.4-11.0 [facility] Comment on above: Performed By: #### L 501.9985, L100.0100 ####[facility] [address] [place], [place], [id number] Eosinophil percentageOrdered By: Zebulun Beam on 05-07-2024 Eosinophils/100 WBC (Bld) 0.4 % 0-5 [facility] Erythrocyte distribution wid th ratioOrdered By: Zebulun Beam on 05-07-2024 Erythrocyte distribution width (RBC) [Ratio] 14.0 % 11.6-14.6 [facility] Erythrocyte distribution wid th standard deviationOrdered By: [facility] on 05-07-2024 Erythrocyte distribution width (RBC) [Entitic vol] 43.4 fL 35.1-43.9 [facility] Erythrocyte distribution width (RBC) [Ratio] 43.4 fl 35.1-43.9 [facility] Hematocrit Auto (Bld) [Volum e fraction]Ordered By: Zebulun Beam on 05-07-2024 Hematocrit (Bld) [Volume fraction] 40.1 % 37-47 [facility] Hemoglobin A1con 05-07-2024 HbA1c (Bld) [Mass fraction] 5.9 % Normal <=5.6 [facility] Comment on above: Performed By: #### L 501.9985, L100.0100 ####[facility] [address] [place], [place], [id number] Hemoglobin A1c percentageOrd ered By: Zebulun Beam on 05-07-2024 HbA1c (Bld) [Mass fraction] 5.9 % >5.7 [facility] Hemoglobin measurementOrdere d By: Zebulun Beam on 05-07-2024 Hemoglobin (Bld) [Mass/Vol] 12.7 g/dL 12.0-15.0 [facility] Immature granulocytes/100 WB C Auto (Bld)Ordered By: Zebulun Beam on 05-07-2024 Immature granulocytes/100 WBC (Bld) 0.300 % 0.0-0.9 [facility] Comment on above: IG% - Immature Granu locytes (promyelocytes, myelocytes and metamyelocytes) > 1% indicates that a LEFT SHIFT is Present. Lymphocytes Auto (Unsp spec) [#/Vol]Ordered By: Zebulun Beam on 05-07-2024 Lymphocytes (Bld) [#/Vol] 1.95 10*3/uL 0.83-4.51 [facility] Lymphocytes/100 WBC Auto (Un sp spec)Ordered By: Zebulun Beam on 05-07-2024 Lymphocytes/100 WBC (Bld) 25.4 % 19-41 [facility] MCV (mean corpuscular volume ) determinationOrdered By: Zebulun Beam on 05-07-2024 MCV (RBC) [Entitic vol] 85.0 fL 81-99 [facility] Mean corpuscular hemoglobin (MCH) determinationOrdered By: Zebulun Beam on 05-07-2024 MCH (RBC) [Entitic mass] 26.9 pg Low 27.0-32.0 [facility] Mean corpuscular hemoglobin concentration (MCHC) determinationOrdered By: Zebulun Beam on 05-07-2024 MCHC (RBC) [Mass/Vol] 31.7 g/dL Low 32-36 [facility] Mean platelet volume determi nationOrdered By: Zebulun Beam on 05-07-2024 Platelet mean volume (Bld) [Entitic vol] 9.4 fL 6.2-12.0 [facility] Monocyte percentageOrdered B y: Zebulun Beam on 05-07-2024 Monocytes/100 WBC (Bld) 9.1 % 0-10 [facility] Neutrophil percentageOrdered By: Zebulun Beam on 05-07-2024 Neutrophils/100 WBC (Bld) 64.3 % 47-70 [facility] Nucleated red blood cell per centageOrdered By: Zebulun Beam on 05-07-2024 Nucleated RBC/100 WBC (Bld) [Ratio] 0 % 0-5 [facility] Platelet countOrdered By: Vazquez marteun Beam on 05-07-2024 Platelets (Bld) [#/Vol] 380 10*3/uL 150-450 [facility] RBC Auto (Bld) [#/Vol]Ordere d By: Zebulun Beam on 05-07-2024 RBC (Bld) [#/Vol] 4.72 10*6/uL 4.2-5.4 [facility] White blood cell (WBC) count Ordered By: Zebulun Beam on 05-07-2024 WBC (Bld) [#/Vol] 7.7 10*3/uL 4.4-11.0 [facility] Absolute lymphocyte countOrd ered By: Zebulun Beam on 04-22-2024 Lymphocytes Auto (Unsp spec) [#/Vol] 1.96 10*3/uL 0.83-4.51 [facility] Absolute neutrophil countOrd ered By: Zebulun Beam on 04-22-2024 Neutrophils (Bld) [#/Vol] 4.8 10*3/uL 2.0-7.7 [facility] Anion gap in Serum or Plasma Ordered By: Zebulun Beam on 04-22-2024 Anion gap [Moles/Vol] 15 mmol/L 5-15 [facility] Automated lymphocyte count a s percentage of total leukocytesOrdered By: Zebulun Beam on 04-22-2024 Lymphocytes/100 WBC Auto (Unsp spec) 26.0 % 19-41 [facility] BUN/creatinine ratioOrdered By: Zebulun Beam on 04-22-2024 Urea nitrogen/Creatinine [Mass ratio] 17.7 mg/mg 10-20 [facility] Basophil percentageOrdered B y: Zebulun Beam on 04-22-2024 Basophils/100 WBC (Bld) 0.5 % 0-1 [facility] Bilirubin, totalOrdered By: Zebulun Beam on 04-22-2024 Bilirubin [Mass/Vol] 0.33 mg/dL 0.00-1.30 [facility] CBC W/Diff, Automatedon Absolute Lymph 1.96 X10 3/uL Normal 0.83-4.51 [facility] Comment on above: Performed By: #### L 500.4050, L100.0100 ####[facility] [address] [place], [address] Absolute Neut 4.8 X10 3/uL Normal 2.0-7.7 [facility] Comment on above: Performed By: #### L 500.4050, L100.0100 ####[facility] [address] [place], [address] Basophils/100 WBC (Bld) 0.5 % Normal 0-1 [facility] Comment on above: Performed By: #### L 500.4050, L100.0100 ####[facility] [address] [place], [address] Eosinophils/100 WBC (Bld) 0.7 % Normal 0-5 [facility] Comment on above: Performed By: #### L 500.4050, L100.0100 ####[facility] [address] [place], [address] Erythrocyte distribution width (RBC) [Ratio] 13.7 % Normal 11.6-14.6 [facility] Comment on above: Performed By: #### L 500.4050, L100.0100 ####[facility] [address] [place], [address] Hematocrit (Bld) [Volume fraction] 37.9 % Normal 37-47 [facility] Comment on above: Performed By: #### L 500.4050, L100.0100 ####[facility] [address] [place], [address] Hemoglobin (Bld) [Mass/Vol] 12.1 g/dL Normal 12.0-15.0 [facility] Comment on above: Performed By: #### L 500.4050, L100.0100 ####[facility] [address] [place], [address] IG% 0.100 Normal 0.0-0.9 [facility] Comment on above: Result Comment: IG% - Immature Granulocytes (promyelocytes, myelocytes andmetamyelocytes) > 1% indicates that a LEFT SHIFT is Present. Performed By: #### L 500.4050, L100.0100 ####[facility] [address] [place], [address] Lymphocytes/100 WBC (Bld) 26.0 % Normal 19-41 [facility] Comment on above: Performed By: #### L 500.4050, L100.0100 ####[facility] [address] [place], [address] MCH (RBC) [Entitic mass] 26.9 pg Low 27.0-32.0 [facility] Comment on above: Performed By: #### L 500.4050, L100.0100 ####[facility] [address] [place], [address] MCHC (RBC) [Mass/Vol] 31.9 g/dL Low 32-36 [facility] Comment on above: Performed By: #### L 500.4050, L100.0100 ####[facility] [address] [place], [address] MCV (RBC) [Entitic vol] 84.2 fL Normal 81-99 [facility] Comment on above: Performed By: #### L 500.4050, L100.0100 ####[facility] [address] [place], [address] Monocytes/100 WBC (Bld) 8.5 % Normal 0-10 [facility] Comment on above: Performed By: #### L 500.4050, L100.0100 ####[facility] [address] [place], [address] Neutrophils/100 WBC (Bld) 64.2 % Normal 47-70 [facility] Comment on above: Performed By: #### L 500.4050, L100.0100 ####[facility] [address] [place], [address] Nucleated RBC (Bld) [#/Vol] 0 10*3/uL Normal 0-5 [facility] Comment on above: Performed By: #### L 500.4050, L100.0100 ####[facility] [address] [place], [address] Platelet mean volume (Bld) [Entitic vol] 9.6 fL Normal 6.2-12.0 [facility] Comment on above: Performed By: #### L 500.4050, L100.0100 ####[facility] [address] [place], [address] Platelets (Bld) [#/Vol] 352 10*3/uL Normal 150-450 [facility] Comment on above: Performed By: #### L 500.4050, L100.0100 ####[facility] [address] [place], [address] RBC (Bld) [#/Vol] 4.50 10*6/uL Normal 4.2-5.4 [facility] Comment on above: Performed By: #### L 500.4050, L100.0100 ####[facility] [address] [place], [address] RDW SD 41.9 fl Normal 35.1-43.9 [facility] Comment on above: Performed By: #### L 500.4050, L100.0100 ####[facility] [address] [place], [address] WBC (Bld) [#/Vol] 7.5 10*3/uL Normal 4.4-11.0 [facility] Comment on above: Performed By: #### L 500.4050, L100.0100 ####[facility] [address] [place], [address] Carbon dioxide, total [Moles /volume] in Central venous bloodOrdered By: Karuna Lim on 04-22-2024 CO2 [Moles/Vol] 20.4 mmol/L Low 21.0-32.0 [facility] Chloride assayOrdered By: Vazquez Lim on 04-22-2024 Chloride [Moles/Vol] 104 mmol/L 98-108 [facility] Comprehensive Metabolic Prof ilon 04-22-2024 Albumin [Mass/Vol] 3.7 g/dL Normal 3.5-5.0 [facility] Comment on above: Performed By: #### L 500.4050, L100.0100 ####[facility] [address] [place], [address] Albumin/Globulin [Mass ratio] 1.1 {ratio} Normal 0.9-2.4 [facility] Comment on above: Performed By: #### L 500.4050, L100.0100 ####[facility] [address] [place], [address] ALK PHOS 62 U/L Normal 35-104 [facility] Comment on above: Performed By: #### L 500.4050, L100.0100 ####[facility] [address] [place], [address] ALT [Catalytic activity/Vol] 19 U/L Normal <=34 [facility] Comment on above: Performed By: #### L 500.4050, L100.0100 ####[facility] [address] [place], [address] AST [Catalytic activity/Vol] 17 U/L Normal <=31 [facility] Comment on above: Performed By: #### L 500.4050, L100.0100 ####[facility] [address] [place], [address] Bilirubin [Mass/Vol] 0.33 mg/dL Normal 0.00-1.30 [facility] Comment on above: Performed By: #### L 500.4050, L100.0100 ####[facility] [address] [place], [address] BUN/CRE 17.7 RATIO Normal 10-20 [facility] Comment on above: Performed By: #### L 500.4050, L100.0100 ####[facility] [address] [place], [address] Calcium [Mass/Vol] 9.3 mg/dL Normal 7.6-11.0 [facility] Comment on above: Performed By: #### L 500.4050, L100.0100 ####[facility] [address] [place], [address] Chloride [Moles/Vol] 104 mmol/L Normal 98-108 [facility] Comment on above: Performed By: #### L 500.4050, L100.0100 ####[facility] [address] [place], [address] CO2 [Moles/Vol] 20.4 mmol/L Low 21.0-32.0 [facility] Comment on above: Performed By: #### L 500.4050, L100.0100 ####[facility] [address] [place], [address] Creatinine [Mass/Vol] 0.58 mg/dL Low 0.70-1.20 [facility] Comment on above: Performed By: #### L 500.4050, L100.0100 ####[facility] [address] [place], [address] GAP 15 Normal 5-15 [facility] Comment on above: Performed By: #### L 500.4050, L100.0100 ####[facility] [address] [place], [address] GFR/1.73 sq M.predicted among non-blacks MDRD (S/P/Bld) [Vol rate/Area] 127 mL/min/{1.73_m2} Normal >60 [facility] Comment on above: Result Comment: mL/m in/1.73m2 CKD-EPI Creatinine Equation (2020) Performed By: #### L 500.4050, L100.0100 ####[facility] [address] [place], [address] Globulin (S) [Mass/Vol] 3.3 g/dL Normal 2.2-4.2 [facility] Comment on above: Performed By: #### L 500.4050, L100.0100 ####[facility] [address] [place], [address] Glucose [Mass/Vol] 109 mg/dL High 70-99 [facility] Comment on above: Performed By: #### L 500.4050, L100.0100 ####[facility] [address] [place], [address] Potassium [Moles/Vol] 4.3 mmol/L Normal 3.3-5.1 [facility] Comment on above: Performed By: #### L 500.4050, L100.0100 ####[facility] [address] [place], [address] Sodium [Moles/Vol] 139 mmol/L Normal 133-145 [facility] Comment on above: Performed By: #### L 500.4050, L100.0100 ####[facility] [address] [place], [address] T PROT 7.0 g/dL Normal 5.9-8.4 [facility] Comment on above: Performed By: #### L 500.4050, L100.0100 ####[facility] [address] [place], [address] Urea nitrogen [Mass/Vol] 10 mg/dL Normal 4-19 [facility] Comment on above: Performed By: #### L 500.4050, L100.0100 ####[facility] [address] [place], [address] Eosinophil percentageOrdered By: bulun Beam on 04-22-2024 Eosinophils/100 WBC (Bld) 0.7 % 0-5 [facility] Erythrocyte distribution wid th ratioOrdered By: [facility] Beam on 04-22-2024 Erythrocyte distribution width (RBC) [Ratio] 13.7 % 11.6-14.6 [facility] Erythrocyte distribution wid th standard deviationOrdered By: [facility] Beam on 04-22-2024 Erythrocyte distribution width (RBC) [Entitic vol] 41.9 fL 35.1-43.9 [facility] Erythrocyte distribution width (RBC) [Ratio] 41.9 fl 35.1-43.9 [facility] GFR/1.73 sq M.predicted janet g non-blacks MDRD (S/P/Bld) [Vol rate/Area]Ordered By: Karuna Lim on 04-22-2024 Estimated GFR (MDRD) Non-Af Amer 127 >60 [facility] Comment on above: mL/min/1.73m2 CKD-EP I Creatinine Equation (2020) Glomerular filtration rate ( GFR) estimation/1.73 sq m using serum, plasma, or whole bOrdered By: reba Carina on 04-22-2024 GFR/1.73 sq M.predicted among non-blacks MDRD (S/P/Bld) [Vol rate/Area] 127 mL/min/{1.73_m2} >60 [facility] Comment on above: mL/min/1.73m2 CKD-EP I Creatinine Equation (2020) Hematocrit Auto (Bld) [Volum e fraction]Ordered By: aKruna Lim on 04-22-2024 Hematocrit (Bld) [Volume fraction] 37.9 % 37-47 [facility] Hemoglobin measurementOrdere d By: Karuna Lim on 04-22-2024 Hemoglobin (Bld) [Mass/Vol] 12.1 g/dL 12.0-15.0 [facility] Immature granulocytes/100 WB C Auto (Bld)Ordered By: Paytonlun Beam on 04-22-2024 Immature granulocytes/100 WBC (Bld) 0.100 % 0.0-0.9 [facility] Comment on above: IG% - Immature Granu locytes (promyelocytes, myelocytes and metamyelocytes) > 1% indicates that a LEFT SHIFT is Present. Laboratory - Chemistry and C hemistry - challengeOrdered By: Paytonlun Beam on 04-22-2024 AST [Catalytic activity/Vol] 17 U/L <32 [facility] Lymphocytes Auto (Unsp spec) [#/Vol]Or[facility] By[facility] on 04-22-[facility]24 Lymphocytes (Bld) [#/Vol] 1.96 10*3/uL 0.83-4.51 [facility] Lymphocytes/100 WBC Auto (Un sp spec)Ordered By: [facility] Be[facility] on 04-22-2024 Lymphocytes/100 WBC (Bld) 26.0 % 19-41 [facility] MCV (mean corpuscular volume ) determinationOrdered By: [facility] on 04-22-2024 MCV (RBC) [Entitic vol] 84.2 fL 81-99 [facility] Mean corpuscular hemoglobin (MCH) determinationOrdered By: [facility] on 04-22-2024 MCH (RBC) [Entitic mass] 26.9 pg Low 27.0-32.0 [facility] Mean corpuscular hemoglobin concentration (MCHC) determinationOrdered By: [facility] on 04-22-2024 MCHC (RBC) [Mass/Vol] 31.9 g/dL Low 32-36 [facility] Mean platelet volume determi nationOrdered By: [facility] on 04-22-2024 Platelet mean volume (Bld) [Entitic vol] 9.6 fL 6.2-12.0 [facility] Monocyte percentageOrdered B y: Zebulun Beam on 04-22-2024 Monocytes/100 WBC (Bld) 8.5 % 0-10 [facility] Neutrophil percentageOrdered By: bulun Beam on 04-22-2024 Neutrophils/100 WBC (Bld) 64.2 % 47-70 [facility] Nucleated red blood cell per centageOrdered By: Karuna Lim on 04-22-2024 Nucleated RBC/100 WBC (Bld) [Ratio] 0 % 0-5 [facility] Platelet countOrdered By: Vazquez Lim on 04-22-2024 Platelets (Bld) [#/Vol] 352 10*3/uL 150-450 [facility] Potassium (Unsp spec) [Mass/ Vol]Ordered By: Karuna Lim on 04-22-2024 Potassium [Moles/Vol] 4.3 mmol/L 3.3-5.1 [facility] Potassium measurement (mass/ volume)Ordered By: Karuna Lim on 04-22-2024 Potassium (Unsp spec) [Mass/Vol] 4.3 mmol/L 3.3-5.1 [facility] RBC Auto (Bld) [#/Vol]Ordere d By: Karuna Lim on 04-22-2024 RBC (Bld) [#/Vol] 4.50 10*6/uL 4.2-5.4 [facility] Serum creatinine measurement (mass/volume)Ordered By: Karuna Lim on 04-22-2024 Creatinine [Mass/Vol] 0.58 mg/dL Low 0.70-1.20 [facility] Serum globulin measurementOr dered By: Karuna Lim on 04-22-2024 Globulin (S) [Mass/Vol] 3.3 g/dL 2.2-4.2 [facility] Serum glucose measurement (m ass/volume)Ordered By: Karuna Lim on 04-22-2024 Glucose [Mass/Vol] 109 mg/dL High 70-99 [facility] Serum or plasma alanine godinez otransferase (ALT) measurementOrdered By: Karuna Lim on 04-22-2024 ALT [Catalytic activity/Vol] 19 U/L <35 [facility] Serum or plasma albumin cherelle urement (mass/volume)Ordered By: Karuna Lim on 04-22-2024 Albumin [Mass/Vol] 3.7 g/dL 3.5-5.0 [facility] Serum or plasma albumin/glob ulin mass ratioOrdered By: Jakin Beam on 04-22-2024 Albumin/Globulin [Mass ratio] 1.1 {ratio} 0.9-2.4 [facility] Serum or plasma alkaline rohit sphatase measurementOrdered By: Zebulun Beam on 04-22-2024 ALP [Catalytic activity/Vol] 62 U/L 35-104 [facility] Serum or plasma calcium cherelle urement (mass/volume)Ordered By: Zebulun Beam on 04-22-2024 Calcium [Mass/Vol] 9.3 mg/dL 7.6-11.0 [facility] Serum or plasma urea nitroge n measurement (mass/volume)Ordered By: Zebulun Beam on 04-22-2024 Urea nitrogen [Mass/Vol] 10 mg/dL 4-19 [facility] Sodium levelOrdered By: Vazquezbu deb Beam on 04-22-2024 Sodium [Moles/Vol] 139 mmol/L 133-145 [facility] Total proteinOrdered By: Juventino yin Beam on 04-22-2024 Protein [Mass/Vol] 7.0 g/dL 5.9-8.4 [facility] White blood cell (WBC) count Ordered By: Karuna Beam on 04-22-2024 WBC (Bld) [#/Vol] 7.5 10*3/uL 4.4-11.0 [facility] CNOVon 04-15-2024 CNOV Office Visit (ENWSTR ) -------- MARION GUTIERREZ ([id number]) 1995 F Date Time Provider Department 04/15/24 11:20 AM JEY JOHNSON During your visit today, we recorded the following information about you: Pulse Respiration Blood pressure Weight 68/minute 20/minute 120/68 132.3 kg Height Last Period 1.702 m 04/13/24 Jey Johnson MD 04/20/2024 3:26 PM Signed Endocrinology and Metabolism Paulina Follow up note Chief complaint: Evaluation of [...] (more content not 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 Normal [facility] CNOVon 04-14-2024 CNOV Office Visit (UCWSTR ) -------- MARION GUTIERREZ ([id number]) 1995 F Date Time Provider Department 04/14/24 4:00 PM LINCOLN BALDERAS [facility] During your visit today, we recorded the following information about you: Temperature Pulse Respiration Blood pressure 98.5 degrees 76/minute 18/minute 142/98 Weight 133.7 kg Lincoln Balderas MD 04/14/2024 4:34 PM Signed Patient presents with: Diarrhea: vomiting, cough, chills and fever x 4 days HPI: Feeling sick starting 4 days ago. She recently started amlodipine and reports her bible reader would like her tested for the flu [...] for results if she cannot log into [facility] tomorrow. Continue supportive care for viral illness. [...] (more content not 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 Normal [facility] Urine Cultureon 02-06-2024 URC Below infection leve l. Mixed Gram Positive Organisms Brownell Count 1000-10,000 MIXC Mixed contaminants. Submit a new specimen if indicated. Normal [facility] Comment on above: Performed By: #### M 100.2200, L400.2010 ####[facility] [address] [place], [place], [id number] Bilirubin Test strip Ql (U)O rdered By: Karuna Lim on 02-05-2024 Bilirubin Ql (U) Negative Negative [facility] Glucose Ql (U)Ordered By: Vazquez Lim on 02-05-2024 Urine Glucose (UA) Normal mg/dl Normal [facility] Ketones Test strip Ql (U)Ord ered By: Karuna Lim on 02-05-2024 Ketones Ql (U) Negative Negative [facility] Nitrite Test strip Ql (U)Ord ered By: Zebulun Beam on 02-05-2024 Nitrite Ql (U) Negative Negative [facility] Protein Test strip Ql (U)Ord ered By: Zebulun Beam on 02-05-2024 Protein Ql (U) 30 mg/dl High Negative [facility] Urinalysis, Routine (Dipstic k)on 02-05-2024 BILIRUBIN URINE Negative Normal Negative [facility] Comment on above: Order Comment: Urine , Random Performed By: #### M 100.2200, L4 ####[facility] [address] [place], [address] Clarity (U) Cloudy Normal Clear [facility] Comment on above: Order Comment: Urine , Random Performed By: #### M 100.2199, L4 ####[facility] [address] [place], [address] Color (U) Yellow Normal Yellow [facility] Comment on above: Order Comment: Urine , Random Performed By: #### M 100.2199, L4 ####[facility] [address] [place], [address] GLUCOSE, UR Normal Normal Normal [facility] Comment on above: Order Comment: Urine , Random Performed By: #### M 100.2199, L4 ####[facility] [address] [place], [address] KETONE UR Negative Normal Negative [facility] Comment on above: Order Comment: Urine , Random Performed By: #### M 100.2200, L4 ####[facility] [address] [place], [address] LEUK ESTERASE 25 /ul Abnormal Negative [facility] Comment on above: Order Comment: Urine , Random Performed By: #### M 100.2200, L4 ####[facility] [address] [place], [address] Nitrite Ql (U) Negative Normal Negative [facility] Comment on above: Order Comment: Urine , Random Performed By: #### M 100.2200, L4.2010 ####[facility] [address] [place], [address] OCCULT BLOOD-UR 250 /ul Abnormal Negative [facility] Comment on above: Order Comment: Urine , Random Performed By: #### M 100.2199, L4 ####[facility] [address] [place], [address] pH UR 6.0 Normal 5.0 - 8.0 [facility] Comment on above: Order Comment: Urine , Random Performed By: #### M 100.2199, L4 ####[facility] [address] [place], [address] PROT DIPSTX 30 mg/dl Abnormal Negative [facility] Comment on above: Order Comment: Urine , Random Performed By: #### M 100.2199, L4 ####[facility] [address] [place], [address] SP.GR. DIPSTX 1.015 Normal 1.002-1.030 [facility] Comment on above: Order Comment: Urine , Random Performed By: #### M 100.2199, L4 ####[facility] [address] [place], [address] UROBILI Normal Normal Normal [facility] Comment on above: Order Comment: Urine , Random Performed By: #### M 100.220, L4 ####[facility] [address] [place], [address] Urine blood detectionOrdered By: Karuna Lim on 02-05-2024 Urine Occult Blood 250 /ul High Negative [facility] Urine clarityOrdered By: Juventino Lim on 02-05-2024 Clarity (U) Cloudy Clear [facility] Urine color determinationOrd ered By: Karuna Lim on 02-05-2024 Color (U) Yellow Yellow [facility] Urine cultureOrdered By: Juventino Lim on 02-05-2024 Bacteria identified Cx Nom (U) Positive Abnormal [facility] Urine leukocyte esterase det ection by dipstickOrdered By: Karuna Lim on 02-05-2024 Leukocyte esterase Test strip Ql (U) 25 /ul High Negative [facility] Urine pHOrdered By: Karuna Lim on 02-05-2024 pH (U) 6.0 [pH] 5.0 - 8.0 [facility] Urine specific gravity measu rementOrdered By: Karuna Lim on 02-05-2024 Specific gravity (U) [Rel density] 1.015 1.002-1.030 [facility] Urobilinogen Ql (U)Ordered B y: Karuna Lim on 02-05-2024 Urine Urobilinogen Normal mg/dl Normal [facility] CNOVon 01-25-2024 CN [facility] -------- FedeJESÚSMARION LORENZ Marah ([id number]) 1995 F Date Time Provider Department 01/25/24 1:30 PM LOUIS SCHMIDT [facility] During your visit today, we recorded the following information about you: Temperature Pulse Respiration Blood pressure 98.6 degrees 69/minute 20/minute 132/90 Weight 135 kg Louis Schmidt APRN.SERVICE DELIVERY CONSULTANT 01/25/2024 12:56 PM Signed CC: Patient presents [...] two times a day for 7 days. agxqkigv-nwjkleeru-ckiob cortisone (CORTISPORIN) 3.5-10,000-1 mg/mL-unit/mL-% otic suspension Use [...] Acute betty (more content not 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 Normal [facility] Juventino 01-25-2024 [facility] Telephone ([facility]) -------- DOCMARION LORENZ ([id number]) 1995 F Date Time Provider Department 01/25/24 MALLIKA MO [facility] During your visit today, we recorded the following information about you: Mallika Mo APRN.SERVICE DELIVERY CONSULTANT 01/25/2024 7:12 AM Signed Please notify that covid/flu/rsv testing negative. Continue with plan of care as discussed during visit. Natlaee Rodriguez LPN 01/25/2024 10:48 AM Signed Patient [...] 441 mg intramuscularly every 4 weeks. - [employer] VERIO TEST STRIPS test strip 1 Each [...] MOUTH TWICE DAILY NEEDED FOR CONSTIPATION. - [place] [employer] CenterUCH DELICA PLUS LANCET 33 gauge 1 Each [...] Status:Closed by NATALEE RODRIGUEZ on 01/25/24 Normal [facility] CNOVon 01-24-2024 CNOV Office Visit (UCWSTR ) -------- MARION GUTIERREZ ([id number]) 1995 F Date Time Provider Department 01/24/24 1:45 PM MARU GALICIA [facility] During your visit today, we recorded the following information about you: Temperature Pulse Respiration Blood pressure 97.9 degrees 73/minute 20/minute 128/82 Weight 135 kg Maru Galicia PA 01/24/2024 2:08 PM Signed This note was created using [employer]mod[employer]. Subjective Marion Gutierrez is a 28 year [...] Inject 441 mg intramuscularly every 4 weeks. [employer] CenterUCH VERIO TEST STRIPS test strip 1 Each [...] BY MOUTH TWICE DAILY NEEDED FOR CONSTIPATION. [employer] CenterUCH DELICA PLUS LANCET 33 gauge 1 Each [...] (more content not 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 Normal [facility] COVID AND INFLUENZA A/B AND RSV PCR, ROUTINEon 01-24-2024 SARS-CoV-2 (COVID-19) RNA DAMARIS+probe Ql (Unsp spec) SARS-COV-2 (AGENT OF COVID-19) RNA: Not detected INFLUENZA A RNA: Not detected INFLUENZA B RNA: Not detected RESPIRATORY SYNCYTIAL VIRUS (RSV) RNA: Not detected Normal [facility] Comment on above: Performed By: #### C VFLRS ####[facility] [id number] [place] [address] [place] STREP A MOLECULAR (POC)on Procedural Control Valid [facility] Strep A (POCT) Negative Negative [facility] Cardiology Visit Reporton Cardiology Visit Report Normal [facility] CNOVon 01-08-2024 CNOV Office Visit (ENWSTR ) -------- MARION GUTIERREZ ([id number]) 1995 F Date Time Provider Department 01/08/24 11:40 AM JEY JOHNSON During your visit today, we recorded the following information about you: Pulse Respiration Blood pressure Weight 72/minute 21/minute 122/76 133.4 kg Height Last Period 1.702 m 12/29/23 Jey Johnson MD 01/09/2024 6:32 PM Signed Endocrinology and Metabolism Paulina Follow up note Chief complaint: Evaluation of [...] 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 Normal [facility] Absolute lymphocyte countOrd ered By: Roxy Ibarra on 06-03-2023 Lymphocytes Auto (Unsp spec) [#/Vol] 3.04 10*3/uL 0.83-4.51 [facility] Automated lymphocyte count a s percentage of total leukocytesOrdered By: Roxy Ibarra on 06-03-2023 Lymphocytes/100 WBC Auto (Unsp spec) 27.2 % 19-41 [facility] Basophil percentageOrdered B y: Roxy Ibarra on 06-03-2023 Basophils/100 WBC (Bld) 0.5 % 0-1 [facility] Chloride [Moles/Vol] 108 mmol/L 98-107 [facility] Eosinophils/100 WBC (Bld) 1.5 % 0-5 [facility] Glucose [Mass/Vol] 99 mg/dL 74-106 [facility] Hemoglobin (Bld) [Mass/Vol] 12.9 g/dL 12.0-15.0 [facility] Monocytes/100 WBC (Bld) 8.1 % 0-10 [facility] Neutrophils (Bld) [#/Vol] 7.0 10*3/uL 2.0-7.7 [facility] Neutrophils/100 WBC (Bld) 62.4 % 47-70 [facility] Potassium [Moles/Vol] 3.9 mmol/L 3.5-5.1 [facility] Sodium [Moles/Vol] 140 mmol/L 136-145 [facility] WBC (Bld) [#/Vol] 11.2 10*3/uL 4.4-11.0 [facility] Determination of erythrocyte mean corpuscular volume (MCV)Ordered By: Roxy Ibarra on 06-03-2023 MCV (RBC) [Entitic vol] 86.4 fL 81-99 [facility] Erythrocyte distribution wid th ratioOrdered By: Roxy Ibarra on 06-03-2023 Erythrocyte distribution width (RBC) [Ratio] 14.1 % 11.6-14.6 [facility] Erythrocyte distribution wid th standard deviationOrdered By: Roxy Ibarra on 06-03-2023 Erythrocyte distribution width (RBC) [Entitic vol] 44.7 fL 35.1-43.9 [facility] Hematocrit Auto (Bld) [Volum e fraction]Ordered By: Roxy Ibarra on 06-03-2023 Hematocrit (Bld) [Volume fraction] 39.9 % 37-47 [facility] Immature granulocytes/100 WB C Auto (Bld)Ordered By: Roxy Ibarra on 06-03-2023 Immature granulocytes/100 WBC (Bld) 0.300 % 0.0-0.9 [facility] Comment on above: IG% - Immature Granu locytes (promyelocytes, myelocytes and metamyelocytes) > 1% indicates that a LEFT SHIFT is Present. Laboratory - Chemistry and C hemistry - challengeOrdered By: Roxy Ibarra on 06-03-2023 CO2 [Moles/Vol] 25.0 mmol/L 21.0-32.0 [facility] Urea nitrogen/Creatinine [Mass ratio] 17.4 mg/mg 10-20 [facility] Laboratory - Hematology and Cell countsOrdered By: Roxy Ibarra on 06-03-2023 MCH (RBC) [Entitic mass] 27.9 pg 27.0-32.0 [facility] MCHC (RBC) [Mass/Vol] 32.3 g/dL 32-36 [facility] Nucleated RBC/100 WBC (Bld) [Ratio] 0 % 0-5 [facility] Platelet mean volume (Bld) [Entitic vol] 9.0 fL 6.2-12.0 [facility] Platelets (Bld) [#/Vol] 382 10*3/uL 150-450 [facility] No Panel InformationOrdered By: Roxy Ibarra on 06-03-2023 D-Dimer Quantitative (PE/DVT) < 0.27 FEU/ug/m 0.27-0.49 [facility] Comment on above: NORMAL D-Dimer level (<0.50) indicates no DVT or PE. Estimated Creatinine Clearance Calc 162.22 ml/min [facility] Estimated GFR (MDRD) Amer 121 mL/min >60 [facility] Comment on above: GFR Calc Estimated GFR (MDRD) Non-Af Amer 100 mL/min >60 [facility] Comment on above: Non- GFR Calc Troponin I High Sensitivity 4 pg/mL 3.0-54.0 [facility] Comment on above: Please Note: New Renetta t Units and Gender Specific Reference Ranges. For more information see Policy Stat Procedure [place] High Sensitivity Troponin (TNIH) and attachments. RBC Auto (Bld) [#/Vol]Ordere d By: Roxy Ibarra on 06-03-2023 RBC (Bld) [#/Vol] 4.62 10*6/uL 4.2-5.4 [facility] Serum or plasma calcium cherelle urement (mass/volume)Ordered By: Roxy Ibarra on 06-03-2023 Calcium [Mass/Vol] 9.0 mg/dL 8.5-10.1 [facility] Serum or plasma creatinine m easurement (mass/volume)Ordered By: Roxy Ibarra on 06-03-2023 Creatinine [Mass/Vol] 0.74 mg/dL 0.55-1.02 [facility] Comment on above: The validity of the calculated GFR & GFRAA in patients over 70 years has not been determined. Clinical correlation is essential. Serum or plasma thyroid stim ulating hormone (TSH) measurement (units/volume)Ordered By: Roxy Ibarra on 06-03-2023 TSH Qn 4.01 uIU/mL 0.358-3.74 [facility] Serum or plasma urea nitroge n measurement (mass/volume)Ordered By: Roxy Ibarra on 06-03-2023 Urea nitrogen [Mass/Vol] 13 mg/dL 7-18 [facility] Thin prep Papanicolaou smear with manual screeningOrdered By: Roxy Ibarra on 06-03-2023 Thin prep Papanicolaou smear with manual screening 7 5-15 [facility] Absolute lymphocyte countOrd ered By: Sarah Purdy on 05-08-2023 Lymphocytes Auto (Unsp spec) [#/Vol] 2.64 10*3/uL 0.83-4.51 [facility] Automated lymphocyte count a s percentage of total leukocytesOrdered By: Sarah Purdy on 05-08-2023 Lymphocytes/100 WBC Auto (Unsp spec) 23.6 % 19-41 [facility] Basophil percentageOrdered B y: Sarah Purdy on 05-08-2023 Basophils/100 WBC (Bld) 0.5 % 0-1 [facility] Bilirubin [Mass/Vol] 0.40 mg/dL 0.20-1.00 [facility] Comment on above: For patients on eltr ombopag therapy, use of Dimension [place] TBIL is not recommended. Chloride [Moles/Vol] 107 mmol/L 98-107 [facility] Eosinophils/100 WBC (Bld) 1.7 % 0-5 [facility] Glucose [Mass/Vol] 105 mg/dL 74-106 [facility] Comment on above: Fasting Glucose resu lt from 100 to 125 mg/dL suggests IMPAIRED HOMEOSTASIS per A.D.A. criteria. Hemoglobin (Bld) [Mass/Vol] 13.6 g/dL 12.0-15.0 [facility] Monocytes/100 WBC (Bld) 6.8 % 0-10 [facility] Neutrophils (Bld) [#/Vol] 7.5 10*3/uL 2.0-7.7 [facility] Neutrophils/100 WBC (Bld) 67.0 % 47-70 [facility] Potassium [Moles/Vol] 3.8 mmol/L 3.5-5.1 [facility] Protein [Mass/Vol] 7.9 g/dL 6.4-8.2 [facility] Sodium [Moles/Vol] 141 mmol/L 136-145 [facility] WBC (Bld) [#/Vol] 11.2 10*3/uL 4.4-11.0 [facility] Determination of erythrocyte mean corpuscular volume (MCV)Ordered By: Sarah Purdy on 05-08-2023 MCV (RBC) [Entitic vol] 87.9 fL 81-99 [facility] Direct bilirubinOrdered By: Sarah Purdy on 05-08-2023 Bilirubin.direct [Mass/Vol] 0.11 mg/dL 0.00-0.30 [facility] Erythrocyte distribution wid th ratioOrdered By: Sarah Purdy on 05-08-2023 Erythrocyte distribution width (RBC) [Ratio] 14.3 % 11.6-14.6 [facility] Erythrocyte distribution wid th standard deviationOrdered By: Sarah Purdy on 05-08-2023 Erythrocyte distribution width (RBC) [Entitic vol] 46.1 fL 35.1-43.9 [facility] Hematocrit Auto (Bld) [Volum e fraction]Ordered By: Sarah Purdy on 05-08-2023 Hematocrit (Bld) [Volume fraction] 44.5 % 37-47 [facility] Immature granulocytes/100 WB C Auto (Bld)Ordered By: Sarah Purdy on 05-08-2023 Immature granulocytes/100 WBC (Bld) 0.400 % 0.0-0.9 [facility] Comment on above: IG% - Immature Granu locytes (promyelocytes, myelocytes and metamyelocytes) > 1% indicates that a LEFT SHIFT is Present. Laboratory - Chemistry and C hemistry - challengeOrdered By: Sarah Purdy on 05-08-2023 ALP [Catalytic activity/Vol] 66 U/L 45-117 [facility] ALT [Catalytic activity/Vol] 39 U/L 13-56 [facility] CO2 [Moles/Vol] 26.0 mmol/L 21.0-32.0 [facility] Globulin (S) [Mass/Vol] 4.4 g/dL 2.2-4.2 [facility] Urea nitrogen/Creatinine [Mass ratio] 18.9 mg/mg 10-20 [facility] Laboratory - Hematology and Cell countsOrdered By: Sarah Purdy on 05-08-2023 MCH (RBC) [Entitic mass] 26.9 pg 27.0-32.0 [facility] MCHC (RBC) [Mass/Vol] 30.6 g/dL 32-36 [facility] Nucleated RBC/100 WBC (Bld) [Ratio] 0 % 0-5 [facility] Platelet mean volume (Bld) [Entitic vol] 9.6 fL 6.2-12.0 [facility] Platelets (Bld) [#/Vol] 408 10*3/uL 150-450 [facility] Laboratory - Microbiology an d Antimicrobial susceptibilityOrdered By: Sarah Purdy on 05-08-2023 SARS-CoV-2 (COVID-19) RNA DAMARIS+probe Ql (Unsp spec) [facility] No Panel InformationOrdered By: Sarah Purdy on 05-08-2023 [facility] 0.70 mmol/L 0.60-1.20 [facility] Comment on above: Moderate Hemolysis, Result may be falsely increased. Estimated Creatinine Clearance Calc 157.46 ml/min [facility] Estimated GFR (MDRD) Amer 122 mL/min >60 [facility] Comment on above: GFR Calc Estimated GFR (MDRD) Non-Af Amer 100 mL/min >60 [facility] Comment on above: Non- GFR Calc RBC Auto (Bld) [#/Vol]Ordere d By: Sarah Purdy on 05-08-2023 RBC (Bld) [#/Vol] 5.06 10*6/uL 4.2-5.4 [facility] Serum or plasma calcium cherelle urement (mass/volume)Ordered By: Sarah Purdy on 05-08-2023 Calcium [Mass/Vol] 9.1 mg/dL 8.5-10.1 [facility] Serum or plasma choriogonado tropin detectionOrdered By: Sarah Purdy on 05-08-2023 HCG ( test) Ql Negative [facility] Serum or plasma creatinine m easurement (mass/volume)Ordered By: Sarah Purdy on 05-08-2023 Creatinine [Mass/Vol] 0.74 mg/dL 0.55-1.02 [facility] Comment on above: The validity of the calculated GFR & GFRAA in patients over 70 years has not been determined. Clinical correlation is essential. Serum or plasma urea nitroge n measurement (mass/volume)Ordered By: Sarah Purdy on 05-08-2023 Urea nitrogen [Mass/Vol] 14 mg/dL 7-18 [facility] Thin prep Papanicolaou smear with manual screeningOrdered By: Sarah Purdy on 05-08-2023 Thin prep Papanicolaou smear with manual screening 3.5 g/dL 3.2-5.0 [facility] Thin prep Papanicolaou smear with manual screening 16 U/L 15-37 [facility] Thin prep Papanicolaou smear with manual screening 8 5-15 [facility] Absolute lymphocyte countOrd ered By: Lianet Worrell on 04-07-2023 Lymphocytes Auto (Unsp spec) [#/Vol] 2.28 10*3/uL 0.83-4.51 [facility] Automated lymphocyte count a s percentage of total leukocytesOrdered By: Lianet Worrell on 04-07-2023 Lymphocytes/100 WBC Auto (Unsp spec) 24.6 % 19-41 [facility] Basophil percentageOrdered B y: Lianet Worrell on 04-07-2023 Basophils/100 WBC (Bld) 0.5 % 0-1 [facility] Chloride [Moles/Vol] 113 mmol/L 98-107 [facility] Eosinophils/100 WBC (Bld) 1.0 % 0-5 [facility] Glucose [Mass/Vol] 122 mg/dL 74-106 [facility] Comment on above: Fasting Glucose resu lt from 100 to 125 mg/dL suggests IMPAIRED HOMEOSTASIS per A.D.A. criteria. Hemoglobin (Bld) [Mass/Vol] 12.7 g/dL 12.0-15.0 [facility] Monocytes/100 WBC (Bld) 7.3 % 0-10 [facility] Neutrophils (Bld) [#/Vol] 6.1 10*3/uL 2.0-7.7 [facility] Neutrophils/100 WBC (Bld) 66.2 % 47-70 [facility] Potassium [Moles/Vol] 3.8 mmol/L 3.5-5.1 [facility] Sodium [Moles/Vol] 140 mmol/L 136-145 [facility] WBC (Bld) [#/Vol] 9.3 10*3/uL 4.4-11.0 [facility] Determination of erythrocyte mean corpuscular volume (MCV)Ordered By: Lianet Worrell on 04-07-2023 MCV (RBC) [Entitic vol] 86.5 fL 81-99 [facility] Erythrocyte distribution wid th ratioOrdered By: Lianet Worrell on 04-07-2023 Erythrocyte distribution width (RBC) [Ratio] 13.9 % 11.6-14.6 [facility] Erythrocyte distribution wid th standard deviationOrdered By: Lianet Worrell on 04-07-2023 Erythrocyte distribution width (RBC) [Entitic vol] 43.9 fL 35.1-43.9 [facility] Hematocrit Auto (Bld) [Volum e fraction]Ordered By: Lianet Worrell on 04-07-2023 Hematocrit (Bld) [Volume fraction] 40.4 % 37-47 [facility] Immature granulocytes/100 WB C Auto (Bld)Ordered By: Lianet Worrell on 04-07-2023 Immature granulocytes/100 WBC (Bld) 0.400 % 0.0-0.9 [facility] Comment on above: IG% - Immature Granu locytes (promyelocytes, myelocytes and metamyelocytes) > 1% indicates that a LEFT SHIFT is Present. Laboratory - Chemistry and C hemistry - challengeOrdered By: Lianet Worrell on 04-07-2023 CO2 [Moles/Vol] 23.0 mmol/L 21.0-32.0 [facility] Urea nitrogen/Creatinine [Mass ratio] 15.8 mg/mg 10-20 [facility] Laboratory - Drug toxicology Ordered By: Lianet Worrell on 04-07-2023 Amphetamines Ql (U) Negative <1000 ng/mL [facility] Benzodiazepines Ql (U) Negative < 200 ng/mL [facility] Cannabinoids Screen Ql (U) Negative < 50 ng/mL [facility] Cocaine Ql (U) Negative < 300 ng/mL [facility] Opiates Ql (U) Negative < 300 ng/mL [facility] Laboratory - Hematology and Cell countsOrdered By: Lianet Worrell on 04-07-2023 MCH (RBC) [Entitic mass] 27.2 pg 27.0-32.0 [facility] MCHC (RBC) [Mass/Vol] 31.4 g/dL 32-36 [facility] Nucleated RBC/100 WBC (Bld) [Ratio] 0 % 0-5 [facility] Platelet mean volume (Bld) [Entitic vol] 9.0 fL 6.2-12.0 [facility] Platelets (Bld) [#/Vol] 340 10*3/uL 150-450 [facility] Laboratory - Microbiology an d Antimicrobial susceptibilityOrdered By: Lianet Worrell on 04-07-2023 SARS-CoV-2 (COVID-19) RNA DAMARIS+probe Ql (Unsp spec) [facility] SARS-CoV-2 (COVID-19) RNA DAMARIS+probe Ql (Unsp spec) [facility] No Panel InformationOrdered By: Lianet Worrell on 04-07-2023 MDMA (Ecstasy) Screen Negative < 500 ng/mL [facility] Urine Barbiturates Screen Negative < 200 ng/mL [facility] Urine Drug Screen Comment [facility] Comment on above: CONFIRMATORY TESTING [...] Methadone Screen Negative < 300 ng/mL [facility] Estimated Creatinine Clearance Calc 170.69 ml/min [facility] Estimated GFR (MDRD) Amer 130 mL/min >60 [facility] Comment on above: GFR Calc Estimated GFR (MDRD) Non-Af Amer 108 mL/min >60 [facility] Comment on above: Non- GFR Calc Ethyl Alcohol Level < 3.0 mg/dL [facility] Comment on above: The serum:whole bloo d ethanol ratio is approximately 1.14and varies slightly with hematocrit. Medical Alcohol reference interval and critical value innon-tolerant individuals; 50 - 100 Impairment 100 Intoxication 100 - 250 Severe Poisoning 250 - 400 Deep/possible fatal coma RBC Auto (Bld) [#/Vol]Ordere d By: Lianet Worrell on 04-07-2023 RBC (Bld) [#/Vol] 4.67 10*6/uL 4.2-5.4 [facility] Serum or plasma calcium cherelle urement (mass/volume)Ordered By: Lianet Worrell on 04-07-2023 Calcium [Mass/Vol] 9.4 mg/dL 8.5-10.1 [facility] Serum or plasma choriogonado tropin detectionOrdered By: Lianet Worrell on 04-07-2023 HCG ( test) Ql Negative [facility] Serum or plasma creatinine m easurement (mass/volume)Ordered By: Lianet Worrell on 04-07-2023 Creatinine [Mass/Vol] 0.70 mg/dL 0.55-1.02 [facility] Comment on above: The validity of the calculated GFR & GFRAA in patients over 70 years has not been determined. Clinical correlation is essential. Serum or plasma urea nitroge n measurement (mass/volume)Ordered By: Lianet Worrell on 04-07-2023 Urea nitrogen [Mass/Vol] 11 mg/dL 7-18 [facility] Thin prep Papanicolaou smear with manual screeningOrdered By: Lianetdaryl Worrell on 04-07-2023 Thin prep Papanicolaou smear with manual screening 4 - [facility] Urine phencyclidine (PCP) de tectionOrdered By: Lianet Worrell on 04-07-2023 Phencyclidine Ql (U) Negative < 25 ng/mL [facility] Absolute lymphocyte countOrd ered By: Andreas Oliva on 01-30-2023 Lymphocytes Auto (Unsp spec) [#/Vol] 2.23 10*3/uL 0.83-4.51 [facility] Basophil percentageOrdered B y: Andreas Oliva on 01-30-2023 Basophils/100 WBC (Bld) 0.8 % 0-1 [facility] Bilirubin [Mass/Vol] 0.40 mg/dL 0.20-1.00 [facility] Comment on above: For patients on eltr ombopag therapy, use of Dimension [place] TBIL is not recommended. Chloride [Moles/Vol] 108 mmol/L 98-107 [facility] Cholesterol [Mass/Vol] 170 mg/dL <200 [facility] Comment on above: <200 mg/dL Desirable 200-240 mg/dL Borderline >240 mg/dL High Risk Eosinophils/100 WBC (Bld) 1.0 % 0-5 [facility] Glucose [Mass/Vol] 95 mg/dL 74-106 [facility] Neutrophils (Bld) [#/Vol] 7.5 10*3/uL 2.0-7.7 [facility] Neutrophils/100 WBC (Bld) 70.2 % 47-70 [facility] Potassium [Moles/Vol] 4.1 mmol/L 3.5-5.1 [facility] Protein [Mass/Vol] 7.5 g/dL 6.4-8.2 [facility] Sodium [Moles/Vol] 139 mmol/L 136-145 [facility] Triglyceride [Mass/Vol] 120 mg/dL <199 [facility] Comment on above: The drugs N-Acetylcy steine and Metamizole may falsely depress this assay.Serum Triglycerides Reference Interval Normal <150 mg/dL Borderline high 150 - 199 mg/dL High 200 - 499 mg/dL Very High > or = 500 mg/dL WBC (Bld) [#/Vol] 10.6 10*3/uL 4.4-11.0 [facility] Blood erythrocytes count (nu mber/volume)Ordered By: Andreas Oliva on 01-30-2023 RBC (Bld) [#/Vol] 4.57 10*6/uL 4.2-5.4 [facility] Blood hemoglobin measurement (mass/volume)Ordered By: Andreas Oliva on 01-30-2023 Hemoglobin (Bld) [Mass/Vol] 12.9 g/dL 12.0-15.0 [facility] Blood lymphocytes/100 leukoc ytesOrdered By: Andreas Oliva on 01-30-2023 Lymphocytes/100 WBC (Bld) 21.0 % 19-41 [facility] Blood monocytes/100 leukocyt esOrdered By: Andreas Oliva on 01-30-2023 Monocytes/100 WBC (Bld) 6.6 % 0-10 [facility] Blood platelet mean volumeOr dered By: Andreas Oliva on 01-30-2023 Platelet mean volume (Bld) [Entitic vol] 9.1 fL 6.2-12.0 [facility] Determination of erythrocyte mean corpuscular volume (MCV)Ordered By: Andreas Oliva on 01-30-2023 MCV (RBC) [Entitic vol] 91.9 fL 81-99 [facility] Erythrocyte sedimentation ra teOrdered By: Andreas Oliva on 01-30-2023 ESR (Bld) [Velocity] 24 mm/h 0-30 [facility] Hematocrit Auto (Bld) [Volum e fraction]Ordered By: Andreasneal Oliva on 01-30-2023 Hematocrit (Bld) [Volume fraction] 42.0 % 37-47 [facility] Laboratory - Chemistry and C hemistry - challengeOrdered By: Andreas Oliva on 01-30-2023 ALP [Catalytic activity/Vol] 59 U/L 45-117 [facility] ALT [Catalytic activity/Vol] 29 U/L 13-56 [facility] CO2 [Moles/Vol] 26.0 mmol/L 21.0-32.0 [facility] Globulin (S) [Mass/Vol] 4.2 g/dL 2.2-4.2 [facility] Urea nitrogen/Creatinine [Mass ratio] 23.6 mg/mg 10-20 [facility] Laboratory - Hematology and Cell countsOrdered By: Andreas Oliva on 01-30-2023 Erythrocyte distribution width (RBC) [Entitic vol] 45.3 fL 35.1-43.9 [facility] Erythrocyte distribution width (RBC) [Ratio] 13.3 % 11.6-14.6 [facility] Immature granulocytes/100 WBC (Bld) 0.400 % 0.0-0.9 [facility] Comment on above: IG% - Immature Granu locytes (promyelocytes, myelocytes and metamyelocytes) > 1% indicates that a LEFT SHIFT is Present. MCH (RBC) [Entitic mass] 28.2 pg 27.0-32.0 [facility] Nucleated RBC/100 WBC (Bld) [Ratio] 0 % 0-5 [facility] MCHC Auto (RBC) [Mass/Vol]Or dered By: Andreas Oliva on 01-30-2023 MCHC (RBC) [Mass/Vol] 30.7 g/dL 32-36 [facility] No Panel InformationOrdered By: Andreas Oliva on 01-30-2023 Estimated GFR (MDRD) Amer 135 mL/min >60 [facility] Comment on above: GFR Calc Estimated GFR (MDRD) Non-Af Amer 112 mL/min >60 [facility] Comment on above: Non- GFR Calc Thyroid Stimulating Hormone (TSH) 2.19 uIU/mL 0.358-3.74 [facility] Platelets bldOrdered By: Mello Oliva on 01-30-2023 Platelets (Bld) [#/Vol] 403 10*3/uL 150-450 [facility] Serum or plasma C reactive p rotein measurement (mass/volume)Ordered By: Andreas Oliva on 01-30-2023 CRP [Mass/Vol] 11.40 mg/L 0.0-3.0 [facility] Comment on above: C-Reactive Protein ( CRP) provides useful information for thediagnosis, therapy and monitoring of inflammatory processesand associated diseases. For the evaluation of Relative Riskfor Cardiovascular Disease, a High Sensitivity CRP (HSCRP)should be ordered. Serum or plasma albumin cherelle urement (mass/volume)Ordered By: Andreas Oliva on 01-30-2023 Albumin [Mass/Vol] 3.3 g/dL 3.2-5.0 [facility] Serum or plasma albumin/glob ulin mass ratioOrdered By: Andreas Oliva on 01-30-2023 Albumin/Globulin [Mass ratio] 0.8 {ratio} 0.9-2.4 [facility] Serum or plasma calcium cherelle urement (mass/volume)Ordered By: Andreas Oliva on 01-30-2023 Calcium [Mass/Vol] 8.8 mg/dL 8.5-10.1 [facility] Serum or plasma cholesterol in HDL measurement (mass/volume)Ordered By: Andreas Oliva on 01-30-2023 Cholesterol in HDL [Mass/Vol] 38 mg/dL >40 [facility] Comment on above: The drugs N-Acetylcy steine and Metamizole may falsely depress this assay. Reference Range HDL <40 mg/dL Low HDL Cholesterol HDL >or= 60 mg/dL High HDL Cholesterol Serum or plasma cholesterol in VLDL measurement (mass/volume)Ordered By: Andreas Oliva on 01-30-2023 Cholesterol in VLDL [Mass/Vol] 24 mg/dL 5-40 [facility] Serum or plasma creatinine m easurement (mass/volume)Ordered By: Andreas Oliva on 01-30-2023 Creatinine [Mass/Vol] 0.68 mg/dL 0.55-1.02 [facility] Comment on above: The validity of the calculated GFR & GFRAA in patients over 70 years has not been determined. Clinical correlation is essential. Serum or plasma low density lipoprotein (LDL) cholesterol measurement (mass/volume)Ordered By: Andreas Oliva on 01-30-2023 Cholesterol in LDL [Mass/Vol] 108 mg/dL 0-130 [facility] Serum or plasma urea nitroge n measurement (mass/volume)Ordered By: Andreas Oliva on 01-30-2023 Urea nitrogen [Mass/Vol] 16 mg/dL 7-18 [facility] Thin prep Papanicolaou smear with manual screeningOrdered By: Andreas Oliva on 01-30-2023 Thin prep Papanicolaou smear with manual screening 10 U/L 15-37 [facility] Thin prep Papanicolaou smear with manual screening 5 5-15 [facility] Whole blood hemoglobin A1c/t otal hemoglobin ratio (mass fraction)Ordered By: Andreas Oliva on 01-30-2023 HbA1c (Bld) [Mass fraction] 5.1 % 3.8-5.6 [facility] Comment on above: Normal < 5.7 % Predi abetic 5.7 - 6.4 % Diabetic >or= 6.5 % Please note range changes. Absolute lymphocyte countOrd ered By: Laura Li on 12-20-2022 Lymphocytes Auto (Unsp spec) [#/Vol] 2.18 10*3/uL 0.83-4.51 [facility] Basophil percentageOrdered B y: Laura Li on 12-20-2022 Basophils/100 WBC (Bld) 0.6 % 0-1 [facility] Chloride [Moles/Vol] 110 mmol/L 98-[address] [facility] Eosinophils/100 WBC (Bld) 2.0 % 0-5 [facility] Glucose [Mass/Vol] 109 mg/dL 74-106 [facility] Comment on above: Fasting Glucose resu lt from 100 to 125 mg/dL suggests IMPAIRED HOMEOSTASIS per A.D.A. criteria. Neutrophils (Bld) [#/Vol] 3.6 10*3/uL 2.0-7.7 [facility] Neutrophils/100 WBC (Bld) 55.7 % 47-70 [facility] Potassium [Moles/Vol] 3.6 mmol/L 3.5-5.1 [facility] Sodium [Moles/Vol] 140 mmol/L 136-145 [facility] WBC (Bld) [#/Vol] 6.4 10*3/uL 4.4-11.0 [facility] Blood erythrocytes count (nu mber/volume)Ordered By: Laura Li on 12-20-2022 RBC (Bld) [#/Vol] 3.98 10*6/uL 4.2-5.4 [facility] Blood hemoglobin measurement (mass/volume)Ordered By: Laura Li on 12-20-2022 Hemoglobin (Bld) [Mass/Vol] 11.5 g/dL 12.0-15.0 [facility] Blood lymphocytes/100 leukoc ytesOrdered By: Laura Li on 12-20-2022 Lymphocytes/100 WBC (Bld) 34.0 % 19-41 [facility] Blood monocytes/100 leukocyt esOrdered By: Laura Li on 12-20-2022 Monocytes/100 WBC (Bld) 7.5 % 0-10 [facility] Blood platelet mean volumeOr dered By: Laura Li on 12-20-2022 Platelet mean volume (Bld) [Entitic vol] 9.1 fL 6.2-12.0 [facility] Determination of erythrocyte mean corpuscular volume (MCV)Ordered By: Laura Li on 12-20-2022 MCV (RBC) [Entitic vol] 91.2 fL 81-99 [facility] Hematocrit Auto (Bld) [Volum e fraction]Ordered By: Laura Li on 12-20-2022 Hematocrit (Bld) [Volume fraction] 36.3 % 37-47 [facility] Laboratory - Chemistry and C hemistry - challengeOrdered By: Laura Li on 12-20-2022 CO2 [Moles/Vol] 24.0 mmol/L 21.0-32.0 [facility] Magnesium [Mass/Vol] 2.2 mg/dL 1.6-2.6 [facility] Urea nitrogen/Creatinine [Mass ratio] 20.0 mg/mg 10-20 [facility] Laboratory - Hematology and Cell countsOrdered By: Laura Li on 12-20-2022 Erythrocyte distribution width (RBC) [Entitic vol] 44.9 fL 35.1-43.9 [facility] Erythrocyte distribution width (RBC) [Ratio] 13.3 % 11.6-14.6 [facility] Immature granulocytes/100 WBC (Bld) 0.200 % 0.0-0.9 [facility] Comment on above: IG% - Immature Granu locytes (promyelocytes, myelocytes and metamyelocytes) > 1% indicates that a LEFT SHIFT is Present. MCH (RBC) [Entitic mass] 28.9 pg 27.0-32.0 [facility] Nucleated RBC/100 WBC (Bld) [Ratio] 0 % 0-5 [facility] MCHC Auto (RBC) [Mass/Vol]Or dered By: Laura Li on 12-20-2022 MCHC (RBC) [Mass/Vol] 31.7 g/dL 32-36 [facility] No Panel InformationOrdered By: Laura Li on 12-20-2022 Estimated Creatinine Clearance Calc 133.01 ml/min [facility] Estimated GFR (MDRD) Amer 155 mL/min >60 [facility] Comment on above: GFR Calc Estimated GFR (MDRD) Non-Af Amer 128 mL/min >60 [facility] Comment on above: Non- GFR Calc Platelets bldOrdered By: Lc Li on 12-20-2022 Platelets (Bld) [#/Vol] 322 10*3/uL 150-450 [facility] Serum or plasma calcium cherelle urement (mass/volume)Ordered By: Laura Li on 12-20-2022 Calcium [Mass/Vol] 8.5 mg/dL 8.5-10.1 [facility] Serum or plasma cortisol burton surement (mass/volume)Ordered By: Laura Li on 12-20-2022 Cortisol [Mass/Vol] 13.40 ug/dL 3.44-22.45 [facility] Comment on above: Adult (AM) 5.27 - 22 .45 ug/dL Adult (PM) 3.44 - 16.76 ug/dLPlease note revised CORTISOL reference range effective 2019. Serum or plasma creatinine m easurement (mass/volume)Ordered By: Laura Li on 12-20-2022 Creatinine [Mass/Vol] 0.60 mg/dL 0.55-1.02 [facility] Comment on above: The validity of the calculated GFR & GFRAA in patients over 70 years has not been determined. Clinical correlation is essential. Serum or plasma urea nitroge n measurement (mass/volume)Ordered By: Laura Li on 12-20-2022 Urea nitrogen [Mass/Vol] 12 mg/dL 7-18 [facility] Thin prep Papanicolaou smear with manual screeningOrdered By: Laura Li on 12-20-2022 Thin prep Papanicolaou smear with manual screening 6 5-15 [facility] Absolute lymphocyte countOrd ered By: Roxy Ibarra on 12-18-2022 Lymphocytes Auto (Unsp spec) [#/Vol] 2.03 10*3/uL 0.83-4.51 [facility] Basophil percentageOrdered B y: Roxy Ibarra on 12-18-2022 Basophils/100 WBC (Bld) 0.5 % 0-1 [facility] Chloride [Moles/Vol] 108 mmol/L 98-107 [facility] Eosinophils/100 WBC (Bld) 0.7 % 0-5 [facility] Glucose [Mass/Vol] 107 mg/dL 74-106 [facility] Comment on above: Fasting Glucose resu lt from 100 to 125 mg/dL suggests IMPAIRED HOMEOSTASIS per A.D.A. criteria. Neutrophils (Bld) [#/Vol] 8.3 10*3/uL 2.0-7.7 [facility] Neutrophils/100 WBC (Bld) 73.9 % 47-70 [facility] Potassium [Moles/Vol] 4.1 mmol/L 3.5-5.1 [facility] Sodium [Moles/Vol] 140 mmol/L 136-145 [facility] WBC (Bld) [#/Vol] 11.2 10*3/uL 4.4-11.0 [facility] Blood erythrocytes count (nu mber/volume)Ordered By: Roxy Ibarra on 12-18-2022 RBC (Bld) [#/Vol] 4.50 10*6/uL 4.2-5.4 [facility] Blood hemoglobin measurement (mass/volume)Ordered By: Roxy Ibarra on 12-18-2022 Hemoglobin (Bld) [Mass/Vol] 12.9 g/dL 12.0-15.0 [facility] Blood lymphocytes/100 leukoc ytesOrdered By: Roxy Ibarra on 12-18-2022 Lymphocytes/100 WBC (Bld) 18.1 % 19-41 [facility] Blood monocytes/100 leukocyt esOrdered By: Roxy Ibarra on 12-18-2022 Monocytes/100 WBC (Bld) 6.4 % 0-10 [facility] Blood platelet mean volumeOr dered By: Roxy Ibarra on 12-18-2022 Platelet mean volume (Bld) [Entitic vol] 9.0 fL 6.2-12.0 [facility] Determination of erythrocyte mean corpuscular volume (MCV)Ordered By: Roxy Ibarra on 12-18-2022 MCV (RBC) [Entitic vol] 91.1 fL 81-99 [facility] Hematocrit Auto (Bld) [Volum e fraction]Ordered By: Roxy Ibarra on 12-18-2022 Hematocrit (Bld) [Volume fraction] 41.0 % 37-47 [facility] Laboratory - Chemistry and C hemistry - challengeOrdered By: Roxy Ibarra on 12-18-2022 CO2 [Moles/Vol] 29.0 mmol/L 21.0-32.0 [facility] Urea nitrogen/Creatinine [Mass ratio] 17.9 mg/mg 10-20 [facility] Laboratory - Hematology and Cell countsOrdered By: Roxy Ibarra on 12-18-2022 Erythrocyte distribution width (RBC) [Entitic vol] 46.5 fL 35.1-43.9 [facility] Erythrocyte distribution width (RBC) [Ratio] 13.7 % 11.6-14.6 [facility] Immature granulocytes/100 WBC (Bld) 0.400 % 0.0-0.9 [facility] Comment on above: IG% - Immature Granu locytes (promyelocytes, myelocytes and metamyelocytes) > 1% indicates that a LEFT SHIFT is Present. MCH (RBC) [Entitic mass] 28.7 pg 27.0-32.0 [facility] Nucleated RBC/100 WBC (Bld) [Ratio] 0 % 0-5 [facility] MCHC Auto (RBC) [Mass/Vol]Or dered By: Roxy Ibarra on 12-18-2022 MCHC (RBC) [Mass/Vol] 31.5 g/dL 32-36 [facility] No Panel InformationOrdered By: Roxy Ibarra on 12-18-2022 [place] Level 0.60 mmol/L 0.60-1.20 [facility] D-Dimer Quantitative (PE/DVT) < 0.27 FEU/ug/m 0.27-0.49 [facility] Comment on above: NORMAL D-Dimer level (<0.50) indicates no DVT or PE. Estimated GFR (MDRD) Amer 137 mL/min >60 [facility] Comment on above: GFR Calc Estimated GFR (MDRD) Non-Af Amer 113 mL/min >60 [facility] Comment on above: Non- GFR Calc Troponin I High Sensitivity 3 pg/mL 3.0-54.0 [facility] Comment on above: Please Note: New Renetta t Units and Gender Specific Reference Ranges. For more information see Policy Stat Procedure [place] High Sensitivity Troponin (TNIH) and attachments. Platelets bldOrdered By: Jada Ibarra on 12-18-2022 Platelets (Bld) [#/Vol] 404 10*3/uL 150-450 [facility] Serum or plasma calcium cherelle urement (mass/volume)Ordered By: Roxy Ibarra on 12-18-2022 Calcium [Mass/Vol] 9.2 mg/dL 8.5-10.1 [facility] Serum or plasma creatinine m easurement (mass/volume)Ordered By: Roxy Ibarra on 12-18-2022 Creatinine [Mass/Vol] 0.67 mg/dL 0.55-1.02 [facility] Comment on above: The validity of the calculated GFR & GFRAA in patients over 70 years has not been determined. Clinical correlation is essential. Serum or plasma urea nitroge n measurement (mass/volume)Ordered By: Roxy Ibarra on 12-18-2022 Urea nitrogen [Mass/Vol] 12 mg/dL 7-18 [facility] Thin prep Papanicolaou smear with manual screeningOrdered By: Roxy Ibarra on 12-18-2022 Thin prep Papanicolaou smear with manual screening 3 5-15 [facility] Basophil percentageOrdered B y: DANIEL BETANCUR on 12-12-2022 Bilirubin [Mass/Vol] 0.80 mg/dL 0.20-1.00 [facility] Comment on above: For patients on eltr ombopag therapy, use of Dimension [place] TBIL is not recommended. Chloride [Moles/Vol] 105 mmol/L 98-107 [facility] Glucose [Mass/Vol] 96 mg/dL 74-106 [facility] Potassium [Moles/Vol] 4.4 mmol/L 3.5-5.1 [facility] Protein [Mass/Vol] 7.5 g/dL 6.4-8.2 [facility] Sodium [Moles/Vol] 140 mmol/L 136-145 [facility] Laboratory - Chemistry and C hemistry - challengeOrdered By: DANIEL BETANCUR on 12-12-2022 ALP [Catalytic activity/Vol] 74 U/L 45-117 [facility] ALT [Catalytic activity/Vol] 54 U/L 13-56 [facility] CO2 [Moles/Vol] 28.0 mmol/L 21.0-32.0 [facility] Globulin (S) [Mass/Vol] 3.8 g/dL 2.2-4.2 [facility] Lipase [Catalytic activity/Vol] 32 U/L 13-75 [facility] Comment on above: Please note:LIPASE r evised reference range effective 22. New Lipase methodology. Expected to produce lower values than the previous assay method. NEW Reference Range: 13 - 75 U/L Urea nitrogen/Creatinine [Mass ratio] 12.5 mg/mg 12-08 [facility] No Panel InformationOrdered By: [facility] on 12-12-2022 Estimated GFR (MDRD) Amer 111 mL/min >60 [facility] Comment on above: GFR Calc Estimated GFR (MDRD) Non-Af Amer 92 mL/min >60 [facility] Comment on above: Non- GFR Calc Insulin Level 80.9 mU/L 2.6-37.6 [facility] [place] Level 0.60 mmol/L 0.60-1.20 [facility] Serum or plasma albumin cherelle urement (mass/volume)Ordered By: [facility] on 12-12-2022 Albumin [Mass/Vol] 3.7 g/dL 3.2-5.0 [facility] [facility] Serum or plasma albumin/glob ulin mass ratioOrdered By: [facility] on 12-12-2022 Albumin/Globulin [Mass ratio] 1.0 {ratio} 0.9-2.4 [facility] Serum or plasma calcium cherelle urement (mass/volume)Ordered By: [facility] on 12-12-2022 Calcium [Mass/Vol] 9.5 mg/dL 8.5-10.1 [facility] Serum or plasma creatinine m easurement (mass/volume)Ordered By: [facility] on 12-12-2022 Creatinine [Mass/Vol] 0.80 mg/dL 0.55-1.02 [facility] Comment on above: The validity of the calculated GFR & GFRAA in patients over 70 years has not been determined. Clinical correlation is essential. Serum or plasma urea nitroge n measurement (mass/volume)Ordered By: [facility] on 12-12-2022 Urea nitrogen [Mass/Vol] 10 mg/dL 7-18 [facility] Thin prep Papanicolaou smear with manual screeningOrdered By: [facility] on 12-12-2022 Thin prep Papanicolaou smear with manual screening 21 U/L 15-37 [facility] Thin prep Papanicolaou smear with manual screening 7 5-15 [facility] Absolute lymphocyte countOrd ered By: Rodolfo Das on 12-09-2022 Lymphocytes Auto (Unsp spec) [#/Vol] 2.14 10*3/uL 0.83-4.51 [facility] Basophil percentageOrdered B y: Rodolfo Das on 12-09-2022 Basophil percentage 5-10 SEEN /hpf 0-5 [facility] Basophils/100 WBC (Bld) 0.5 % 0-1 [facility] Bilirubin [Mass/Vol] 0.70 mg/dL 0.20-1.00 [facility] Comment on above: For patients on eltr ombopag therapy, use of Dimension [place] TBIL is not recommended. Chloride [Moles/Vol] 106 mmol/L 98-107 [facility] Eosinophils/100 WBC (Bld) 0.7 % 0-5 [facility] Glucose [Mass/Vol] 91 mg/dL 74-106 [facility] Neutrophils (Bld) [#/Vol] 7.5 10*3/uL 2.0-7.7 [facility] Neutrophils/100 WBC (Bld) 71.2 % 47-70 [facility] Potassium [Moles/Vol] 4.3 mmol/L 3.5-5.1 [facility] Protein [Mass/Vol] 7.6 g/dL 6.4-8.2 [facility] Sodium [Moles/Vol] 138 mmol/L 136-145 [facility] WBC (Bld) [#/Vol] 10.5 10*3/uL 4.4-11.0 [facility] Beta hCG serum qualOrdered B y: Rodolfo Das on 12-09-2022 Beta HCG ( test) Ql Negative [facility] Bilirubin Test strip Ql (U)O rdered By: Rodolfo Das on 12-09-2022 Bilirubin Ql (U) Negative Negative [facility] Blood erythrocytes count (nu mber/volume)Ordered By: Rodolfo Das on 12-09-2022 RBC (Bld) [#/Vol] 4.66 10*6/uL 4.2-5.4 [facility] Blood hemoglobin measurement (mass/volume)Ordered By: Rodolfo Das on 12-09-2022 Hemoglobin (Bld) [Mass/Vol] 13.4 g/dL 12.0-15.0 [facility] Blood lymphocytes/100 leukoc ytesOrdered By: Rodolfo Das on 12-09-2022 Lymphocytes/100 WBC (Bld) 20.4 % 19-41 [facility] Blood monocytes/100 leukocyt esOrdered By: Rodolfo Das on 12-09-2022 Monocytes/100 WBC (Bld) 6.9 % 0-10 [facility] Blood platelet mean volumeOr dered By: Rodolfo Das on 12-09-2022 Platelet mean volume (Bld) [Entitic vol] 8.9 fL 6.2-12.0 [facility] Culture, urineOrdered By: Vj Das on 12-09-2022 Bacteria identified Cx Nom (U) Positive [facility] Bacteria identified Cx Nom (U) Positive [facility] Determination of erythrocyte mean corpuscular volume (MCV)Ordered By: Rodolfo Das on 12-09-2022 MCV (RBC) [Entitic vol] 89.9 fL 81-99 [facility] Hematocrit Auto (Bld) [Volum e fraction]Ordered By: Rodolfo Das on 12-09-2022 Hematocrit (Bld) [Volume fraction] 41.9 % 37-47 [facility] Ketones Test strip Ql (U)Ord ered By: Rodolfo Das on 12-09-2022 Ketones Ql (U) 5 mg/dl Negative [facility] Laboratory - Chemistry and C hemistry - challengeOrdered By: Rodolfo Das on 12-09-2022 ALP [Catalytic activity/Vol] 69 U/L 45-117 [facility] ALT [Catalytic activity/Vol] 52 U/L 13-56 [facility] CO2 [Moles/Vol] 28.0 mmol/L 21.0-32.0 [facility] Globulin (S) [Mass/Vol] 4.0 g/dL 2.2-4.2 [facility] Lipase [Catalytic activity/Vol] 50 U/L 13-75 [facility] Comment on above: Please note:LIPASE r evised reference range effective 22. New Lipase methodology. Expected to produce lower values than the previous assay method. NEW Reference Range: 13 - 75 U/L Urea nitrogen/Creatinine [Mass ratio] 18.9 mg/mg 10-20 [facility] Laboratory - Hematology and Cell countsOrdered By: Rodolfo Das on 12-09-2022 Erythrocyte distribution width (RBC) [Entitic vol] 45.8 fL 35.1-43.9 [facility] Erythrocyte distribution width (RBC) [Ratio] 13.9 % 11.6-14.6 [facility] Immature granulocytes/100 WBC (Bld) 0.300 % 0.0-0.9 [facility] Comment on above: IG% - Immature Granu locytes (promyelocytes, myelocytes and metamyelocytes) > 1% indicates that a LEFT SHIFT is Present. MCH (RBC) [Entitic mass] 28.8 pg 27.0-32.0 [facility] Nucleated RBC/100 WBC (Bld) [Ratio] 0 % 0-5 [facility] MCHC Auto (RBC) [Mass/Vol]Or dered By: Rodolfo Das on 12-09-2022 MCHC (RBC) [Mass/Vol] 32.0 g/dL 32-36 [facility] Mucus LM Ql (Urine sed)Order ed By: Rodolfo Das on 12-09-2022 Mucus Ql (Urine sed) 0 SEEN /hpf [facility] Nitrite Test strip Ql (U)Ord ered By: Rodolfo Das on 12-09-2022 Nitrite Ql (U) Negative Negative [facility] No Panel InformationOrdered By: Rodolfo Das on 12-09-2022 Estimated Creatinine Clearance Calc 120.15 ml/min [facility] Estimated GFR (MDRD) Amer 132 mL/min >60 [facility] Comment on above: GFR Calc Estimated GFR (MDRD) Non-Af Amer 109 mL/min >60 [facility] Comment on above: Non- GFR Calc Platelets bldOrdered By: Vilma Das on 12-09-2022 Platelets (Bld) [#/Vol] 386 10*3/uL 150-450 [facility] Protein Test strip Ql (U)Ord ered By: Rodolfo Das on 12-09-2022 Protein Ql (U) 30 mg/dl Negative [facility] Serum or plasma albumin cherelle urement (mass/volume)Ordered By: Rodolfo Das on 12-09-2022 Albumin [Mass/Vol] 3.6 g/dL 3.2-5.0 [facility] Serum or plasma albumin/glob ulin mass ratioOrdered By: Rodolfo Das on 12-09-2022 Albumin/Globulin [Mass ratio] 0.9 {ratio} 0.9-2.4 [facility] Serum or plasma calcium cherelle urement (mass/volume)Ordered By: Rodolfo Das on 12-09-2022 Calcium [Mass/Vol] 9.2 mg/dL 8.5-10.1 [facility] Serum or plasma creatinine m easurement (mass/volume)Ordered By: Rodolfo Das on 12-09-2022 Creatinine [Mass/Vol] 0.69 mg/dL 0.55-1.02 [facility] Comment on above: The validity of the calculated GFR & GFRAA in patients over 70 years has not been determined. Clinical correlation is essential. Serum or plasma urea nitroge n measurement (mass/volume)Ordered By: Rodolfo Das on 12-09-2022 Urea nitrogen [Mass/Vol] 13 mg/dL 7-18 [facility] Squamous epithelial cells de tection in urine sediment by light microscopyOrdered By: Rodolfo Das on 12-09-2022 Epithelial cells.squamous LM Ql (Urine sed) 0 SEEN /hpf 5-10 [facility] Thin prep Papanicolaou smear with manual screeningOrdered By: Rodolfo Das on 12-09-2022 Thin prep Papanicolaou smear with manual screening 20 U/L 15-37 [facility] Thin prep Papanicolaou smear with manual screening 4 5-15 [facility] Urine blood detectionOrdered By: Rodolfo Das on 12-09-2022 RBC Ql (U) 10 /ul Negative [facility] RBC Ql (U) 0 SEEN /hpf 0-5 [facility] Urine clarityOrdered By: Vilma Das on 12-09-2022 Clarity (U) Sl. Cloudy Clear [facility] Urine color determinationOrd ered By: Rodolfo Das on 12-09-2022 Color (U) Yellow Yellow [facility] Urine glucose detectionOrder ed By: Rodolfo Das on 12-09-2022 Glucose Ql (U) Normal mg/dl Normal [facility] Urine leukocyte esterase det ection by dipstickOrdered By: Rodolfo Das on 12-09-2022 Leukocyte esterase Test strip Ql (U) 500 /ul Negative [facility] Urine pHOrdered By: Rodolfo alfaro on 12-09-2022 pH (U) 6.0 [pH] 5.0 - 8.0 [facility] Urine sediment bacteria coun t by microscopy (number/high power field)Ordered By: Rodolfo Das on 12-09-2022 Bacteria LM.HPF (Urine sed) [#/Area] 1 /[HPF] None Seen [facility] Urine specific gravity measu rementOrdered By: Rodolfo Das on 12-09-2022 Specific gravity (U) [Rel density] 1.025 1.002-1.030 [facility] Urobilinogen Auto test strip Ql (U)Ordered By: Rodolfo Das on 12-09-2022 Urobilinogen Ql (U) Normal mg/dl Normal [facility] .Auto Diffon 12-04-2022 Basophil, Absolute 0.0 10 3/mcL Normal 0.0-0.2 [facility] ([place]) Comment on above: Performed By: #### B JULIO CESAR BROWN, ANEU, GFR, CBC, ADIFF #### [address] [address] Basophils/100 WBC (Bld) 0.5 % Normal 0.0-2.5 [facility] ([place]) Comment on above: Performed By: #### B JULIO CESAR BROWN, ANEU, GFR, CBC, ADIFF #### [address] [address] Eosinophil, Absolute 0.1 10 3/mcL Normal 0.0-0.4 [facility] ([place]) Comment on above: Performed By: #### B JULIO CESAR BROWN, ANEU, GFR, CBC, ADIFF #### [address] [address] Eosinophils/100 WBC (Bld) 1.0 % Normal 0.0-7.0 [facility] ([place]) Comment on above: Performed By: #### B JULIO CESAR BROWN, ANEU, GFR, CBC, ADIFF #### [address] [address] Lymphocyte, Absolute 2.6 10 3/mcL Normal 0.8-3.9 [facility] ([place]) Comment on above: Performed By: #### B JULIO CESAR BROWN, ANEU, GFR, CBC, ADIFF #### [address] [address] Lymphocytes/100 WBC (Bld) 26.3 % Normal 10.0-50.0 [facility] ([place]) Comment on above: Performed By: #### B JULIO CESAR BROWN, ANEU, GFR, CBC, ADIFF #### [address] [address] Monocyte, Absolute 0.7 10 3/mcL Normal 0.2-1.0 [facility] ([place]) Comment on above: Performed By: #### B JULIO CESAR BROWN, ANEU, GFR, CBC, ADIFF #### [address] [address] Monocytes/100 WBC (Bld) 7.1 % Normal 1.7-13.0 [facility] ([place]) Comment on above: Performed By: #### B JULIO CESAR BROWN, ANEU, GFR, CBC, ADIFF #### [address] [address] Neutrophils/100 WBC (Bld) 65.1 % Normal 37.0-80.0 [facility] ([place]) Comment on above: Performed By: #### B JULIO CESAR BROWN, ANEU, GFR, CBC, ADIFF #### [address] [address] .GFRon 12-04-2022 GFR 123 ml/min/1.73sqm Normal [facility] ([place]) Comment on above: Result Comment: GFR Population [...] CESAR BROWN, ANEU, GFR, CBC, ADIFF #### [address] [address] GFR Non- 101 ml/min/1.73sqm Normal [facility] ([place]) Comment on above: Result Comment: GFR Population [...] CESAR BROWN, ANEU, GFR, CBC, ADIFF #### [address] [address] .MDWon 12-04-2022 Monocyte Distribution Width 17.49 Normal 0.00-20.00 [facility] ([place]) Comment on above: Result Comment: For ED adult patients suspected of sepsis, MDW<=20.0 does not rule out sepsis or risk of sepsis Performed By: #### B JULIO CESAR BROWN, ANEU, GFR, CBC, ADIFF #### [address] [address] .NEUABSon 12-04-2022 Neutrophil, Absolute 6.3 10 3/mcL High 2.9-6.2 [facility] ([place]) Comment on above: Performed By: #### B MD STEPHANIEW, ANEU, GFR, CBC, ADIFF #### [address] [address] BMPon 12-04-2022 BUN/Creatinine Ratio 17 ratio Normal 7-27 [facility] ([place]) Comment on above: Performed By: #### B JULIO CESAR BROWN, BAKARI, GFR, CBC, ADIFF #### [address] [address] Calcium [Mass/Vol] 9.2 mg/dL Normal 8.4-10.2 [facility] ([place]) Comment on above: Performed By: #### B JULIO CESAR BROWN, BAKARI, GFR, CBC, ADIFF #### [address] [address] Chloride [Moles/Vol] 104 mmol/L Normal 98-107 [facility] ([place]) Comment on above: Performed By: #### B JULIO CESAR BROWN, BAKARI, GFR, CBC, ADIFF #### [address] [address] CO2 [Moles/Vol] 26 mmol/L Normal 22-29 [facility] ([place]) Comment on above: Performed By: #### B JULIO CESAR BROWN, BAKARI, GFR, CBC, ADIFF #### [address] [address] Creatinine [Mass/Vol] 0.70 mg/dL Normal 0.55-1.02 [facility] ([place]) Comment on above: Performed By: #### B JULIO CESAR BROWN, BAKARI, GFR, CBC, ADIFF #### [address] [address] Electrolyte Balance 11.0 mEq/L Normal 4.0-15.0 [facility] ([place]) Comment on above: Performed By: #### B JULIO CESAR BROWN, BAKARI, GFR, CBC, ADIFF #### [address] [address] Glucose [Mass/Vol] 126 mg/dL High 70-105 [facility] ([place]) Comment on above: Performed By: #### B JULIO CESAR BROWN, ANEU, GFR, CBC, ADIFF #### [address] [address] Potassium [Moles/Vol] 4.5 mmol/L Normal 3.5-5.1 [facility] ([place]) Comment on above: Performed By: #### B JULIO CESAR BROWN, BAKARI, GFR, CBC, ADIFF #### [address] [address] Sodium [Moles/Vol] 141 mmol/L Normal 136-145 [facility] ([place]) Comment on above: Performed By: #### B JULIO CESAR BROWN, BAKARI, GFR, CBC, ADIFF #### [address] [address] Urea nitrogen [Mass/Vol] 12 mg/dL Normal 7-18 [facility] ([place]) Comment on above: Performed By: #### B JULIO CESAR BROWN, BAKARI, GFR, CBC, ADIFF #### [address] [address] CBCon 12-04-2022 Erythrocyte distribution width (RBC) [Ratio] 14.4 % Normal 11.5-14.5 [facility] ([place]) Comment on above: Performed By: #### B JULIO CESAR BROWN, BAKARI, GFR, CBC, ADIFF #### [address] [address] Hematocrit (Bld) [Volume fraction] 39.4 % Normal 37.0-47.0 [facility] ([place]) Comment on above: Performed By: #### B JULIO CESAR BROWN, BAKARI, GFR, CBC, ADIFF #### [address] [address] Hgb 13.1 G/dL Normal 12.0-16.0 [facility] ([place]) Comment on above: Performed By: #### B JULIO CESAR BROWN ANEU, GFR, CBC, ADIFF #### [address] [address] MCH (RBC) [Entitic mass] 29.2 pg Normal 27.0-31.2 [facility] ([place]) Comment on above: Performed By: #### B JULIO CESAR BROWN, BAKARI, GFR, CBC, ADIFF #### [address] [address] MCHC 33.2 G/dL Normal 33.0-37.0 [facility] ([place]) Comment on above: Performed By: #### B JULIO CESAR BROWN, BAKARI, GFR, CBC, ADIFF #### [address] [address] MCV (RBC) [Entitic vol] 87.9 fL Normal 80.0-94.0 [facility] ([place]) Comment on above: Performed By: #### B JULIO CESAR BROWN, BAKARI, GFR, CBC, ADIFF #### [address] [address] Platelet 373 10 3/mcL Normal 130-400 [facility] ([place]) Comment on above: Performed By: #### B JULIO CESAR BROWN, BAKARI, GFR, CBC, ADIFF #### [address] [address] Platelet mean volume (Bld) [Entitic vol] 7.2 fL Low 7.4-10.4 [facility] ([place]) Comment on above: Performed By: #### B JULIO CESAR BROWN, BAKARI, GFR, CBC, ADIFF #### [address] [address] RBC 4.48 10 6/mcL Normal 4.20-5.40 [facility] ([place]) Comment on above: Performed By: #### B JULIO CESAR BROWN, BAKARI, GFR, CBC, ADIFF #### [address] [address] WBC 9.7 10 3/mcL Normal 4.6-10.8 [facility] ([place]) Comment on above: Performed By: #### B JULIO CESAR BROWN, ANEU, GFR, CBC, ADIFF #### [address] [address] [address] HEAD OR BRAIN W/O CONTRAS Ton [...] 12/04/2022 7:24:52 PM Ordering Provider: DEB VÁSQUEZ [facility] ([place]) Glucose Glucometer (BldC) [M ass/Vol]Ordered By: Ozzy Bright on 11-23-2022 Glucose [Mass/Vol] 102 mg/dL 74-106 [facility] Comment on above: MANAGEMENT OF PATIEN T CARE PER NURSING PROTOCOL Basophil percentageOrdered B y: Ozzy Bright on 11-22-2022 Chloride [Moles/Vol] 109 mmol/L 98-107 [facility] Glucose [Mass/Vol] 89 mg/dL 74-106 [facility] Potassium [Moles/Vol] 3.8 mmol/L 3.5-5.1 [facility] Sodium [Moles/Vol] 139 mmol/L 136-145 [facility] Glucose Glucometer (BldC) [M ass/Vol]Ordered By: Ozzy Bright on 11-22-2022 Glucose [Mass/Vol] 73 mg/dL 74-106 [facility] Comment on above: MANAGEMENT OF PATIEN T CARE PER NURSING PROTOCOL Laboratory - Chemistry and C hemistry - challengeOrdered By: Ozzy Bright on 11-22-2022 CO2 [Moles/Vol] 25.0 mmol/L 21.0-32.0 [facility] Urea nitrogen/Creatinine [Mass ratio] 16.7 mg/mg 10- [facility] No Panel InformationOrdered By: Ozzy Bright on 11-22-2022 Estimated GFR (MDRD) Amer 140 mL/min >60 [facility] Comment on above: GFR Calc Estimated GFR (MDRD) Non-Af Amer 115 mL/min >60 [facility] Comment on above: Non- GFR Calc Serum or plasma calcium cherelle urement (mass/volume)Ordered By: Ozzy Bright on 11-22-2022 Calcium [Mass/Vol] 9.4 mg/dL 8.5-10.1 [facility] Serum or plasma creatinine m easurement (mass/volume)Ordered By: Ozzy Bright on 11-22-2022 Creatinine [Mass/Vol] 0.66 mg/dL 0.55-1.02 [facility] Comment on above: The validity of the calculated GFR & GFRAA in patients over 70 years has not been determined. Clinical correlation is essential. Serum or plasma urea nitroge n measurement (mass/volume)Ordered By: Ozzy Bright on 11-22-2022 Urea nitrogen [Mass/Vol] 11 mg/dL -18 [facility] Thin prep Papanicolaou smear with manual screeningOrdered By: Ozzy Bright on 11-22-2022 Thin prep Papanicolaou smear with manual screening 5 -15 [facility] Cervical or vagninal specime n microscopic examination by cytology stain (reported asOrdered By: Zeus Miller on 10-03-2022 Cytology report Cyto stain Doc (Cvx/Vag) Comment . [facility] Comment on above: The Pap smear is a s creening test designed to aid in thedetection of premalignant and malignant conditions of theuterine cervix. It is not a diagnostic procedure andshould not be used as the sole means of detecting cervicalcancer. Both false-positive and false-negative reports dooccur. Laboratory - CytologyOrdered By: Zeus Miller on 10-03-2022 [facility] Cyto stain Nom (Cvx/Vag) [ID] Comment . [facility] Comment on above: Naina Pinedo, Cytot echnologist (ASCP) Laboratory - Miscellaneous t estsOrdered By: Zeus Miller on 10-03-2022 Service comment (Unsp spec) [Interp] Comment . [facility] Comment on above: This liquid based Th inPrep(R) pap test was screened withthe use of an image guided system. Service comment (Unsp spec) [Interp] . . [facility] No Panel InformationOrdered By: Zeus Miller on 10-03-2022 Human Papillomavirus Screen Comment . [facility] Comment on above: The HPV DNA reflex c adria were not met with this specimenresult therefore, no HPV testing was performed.Performed at: [address] [id number] Director: Idalia oYo MD, Phone: [phone] Pathology report final diagnosis Narrative Comment . [facility] Comment on above: NEGATIVE FOR INTRAEP ITHELIAL LESION OR MALIGNANCY. Basophil percentageOrdered B y: Andreas Friend on 09-19-2022 Bilirubin [Mass/Vol] 0.80 mg/dL 0.20-1.00 [facility] Comment on above: For patients on eltr ombopag therapy, use of Dimension [place] TBIL is not recommended. Chloride [Moles/Vol] 108 mmol/L 98-107 [facility] Cholesterol [Mass/Vol] 232 mg/dL <200 [facility] Comment on above: <200 mg/dL Desirable 200-240 mg/dL Borderline >240 mg/dL High Risk Glucose [Mass/Vol] 94 mg/dL 74-106 [facility] Potassium [Moles/Vol] 4.5 mmol/L 3.5-5.1 [facility] Protein [Mass/Vol] 7.4 g/dL 6.4-8.2 [facility] Sodium [Moles/Vol] 138 mmol/L 136-145 [facility] Triglyceride [Mass/Vol] 215 mg/dL <199 [facility] Comment on above: The drugs N-Acetylcy steine and Metamizole may falsely depress this assay.Serum Triglycerides Reference Interval Normal <150 mg/dL Borderline high 150 - 199 mg/dL High 200 - 499 mg/dL Very High > or = 500 mg/dL WBC (Bld) [#/Vol] 8.5 10*3/uL 4.4-11.0 [facility] Blood erythrocytes count (nu mber/volume)Ordered By: Andreas Oliva on 09-19-2022 RBC (Bld) [#/Vol] 4.65 10*6/uL 4.2-5.4 [facility] Blood hemoglobin measurement (mass/volume)Ordered By: Andreas Oliva on 09-19-2022 Hemoglobin (Bld) [Mass/Vol] 13.6 g/dL 12.0-15.0 [facility] Blood platelet mean volumeOr dered By: Andreas Oliva on 09-19-2022 Platelet mean volume (Bld) [Entitic vol] 9.0 fL 6.2-12.0 [facility] Determination of erythrocyte mean corpuscular volume (MCV)Ordered By: Andreas Oliva on 09-19-2022 MCV (RBC) [Entitic vol] 88.4 fL 81-99 [facility] Hematocrit Auto (Bld) [Volum e fraction]Ordered By: Andreas Oliva on 09-19-2022 Hematocrit (Bld) [Volume fraction] 41.1 % 37-47 [facility] Laboratory - Chemistry and C hemistry - challengeOrdered By: Andreas Oliva on 09-19-2022 ALP [Catalytic activity/Vol] 75 U/L 45-117 [facility] ALT [Catalytic activity/Vol] 199 U/L 13-56 [facility] CO2 [Moles/Vol] 25.0 mmol/L 21.0-32.0 [facility] Cobalamin (Vitamin B12) [Mass/Vol] 1606 pg/mL 211-911 [facility] Free T4 [Mass/Vol] 1.12 ng/dL 0.76-1.46 [facility] Globulin (S) [Mass/Vol] 3.7 g/dL 2.2-4.2 [facility] Urea nitrogen/Creatinine [Mass ratio] 13.4 mg/mg 10-20 [facility] Laboratory - Hematology and Cell countsOrdered By: Andreas Oliva on 09-19-2022 Erythrocyte distribution width (RBC) [Entitic vol] 43.0 fL 35.1-43.9 [facility] Erythrocyte distribution width (RBC) [Ratio] 13.3 % 11.6-14.6 [facility] MCH (RBC) [Entitic mass] 29.2 pg 27.0-32.0 [facility] MCHC Auto (RBC) [Mass/Vol]Or dered By: Andreas Oliva on 09-19-2022 MCHC (RBC) [Mass/Vol] 33.1 g/dL 32-36 [facility] No Panel InformationOrdered By: Andreas Oliva on 09-19-2022 Estimated GFR (MDRD) Amer 109 mL/min >60 [facility] Comment on above: GFR Calc Estimated GFR (MDRD) Non-Af Amer 90 mL/min >60 [facility] Comment on above: Non- GFR Calc Thyroid Stimulating Hormone (TSH) 3.75 uIU/mL 0.358-3.74 [facility] Vitamin D 25-Hydroxy 16.1 ng/mL [facility] Comment on above: Vitamin D 25(OH) Sta tus Range Deficiency <20 ng/mL (50nmol/L) Insufficiency 20 - 30 ng/mL (50 - 75 nmol/L) Sufficiency 30 - 100 ng/mL (75 - 250 nmol/L) Toxicity >100 ng/mL (>250 nmol/L) Platelets bldOrdered By: Mello Oliva on 09-19-2022 Platelets (Bld) [#/Vol] 337 10*3/uL 150-450 [facility] Serum or plasma albumin cherelle urement (mass/volume)Ordered By: Andreas Oliva on 09-19-2022 Albumin [Mass/Vol] 3.7 g/dL 3.2-5.0 [facility] Serum or plasma albumin/glob ulin mass ratioOrdered By: Andreas Oliva on 09-19-2022 Albumin/Globulin [Mass ratio] 1.0 {ratio} 0.9-2.4 [facility] Serum or plasma calcium cherelle urement (mass/volume)Ordered By: Andreas Oliva on 09-19-2022 Calcium [Mass/Vol] 9.5 mg/dL 8.5-10.1 [facility] Serum or plasma cholesterol in HDL measurement (mass/volume)Ordered By: Andreas Oliva on 09-19-2022 Cholesterol in HDL [Mass/Vol] 33 mg/dL >40 [facility] Comment on above: The drugs N-Acetylcy steine and Metamizole may falsely depress this assay. Reference Range HDL <40 mg/dL Low HDL Cholesterol HDL >or= 60 mg/dL High HDL Cholesterol Serum or plasma cholesterol in VLDL measurement (mass/volume)Ordered By: Andreas Oliva on 09-19-2022 Cholesterol in VLDL [Mass/Vol] 43 mg/dL 5-40 [facility] Serum or plasma creatinine m easurement (mass/volume)Ordered By: Andreas Oliva on 09-19-2022 Creatinine [Mass/Vol] 0.82 mg/dL 0.55-1.02 [facility] Comment on above: The validity of the calculated GFR & GFRAA in patients over 70 years has not been determined. Clinical correlation is essential. Serum or plasma low density lipoprotein (LDL) cholesterol measurement (mass/volume)Ordered By: Andreas Oliva on 09-19-2022 Cholesterol in LDL [Mass/Vol] 156 mg/dL 0-130 [facility] Serum or plasma urea nitroge n measurement (mass/volume)Ordered By: Andreas Oliva on 09-19-2022 Urea nitrogen [Mass/Vol] 11 mg/dL 7-18 [facility] Thin prep Papanicolaou smear with manual screeningOrdered By: Andreas Oliva on 09-19-2022 Thin prep Papanicolaou smear with manual screening 94 U/L 15-37 [facility] Thin prep Papanicolaou smear with manual screening 5 5-15 [facility] Whole blood hemoglobin A1c/t otal hemoglobin ratio (mass fraction)Ordered By: Andreas Oliva on 09-19-2022 HbA1c (Bld) [Mass fraction] 6.7 % 3.8-5.6 [facility] Comment on above: Normal < 5.7 % Predi abetic 5.7 - 6.4 % Diabetic >or= 6.5 % Please note range changes. Absolute lymphocyte countOrd ered By: Dr. Etienne on 08-15-2022 Lymphocytes Auto (Unsp spec) [#/Vol] 2.71 10*3/uL 0.83-4.51 [facility] Basophil percentageOrdered B y: Dr. Etienne on 08-15-2022 Basophils/100 WBC (Bld) 0.5 % 0-1 [facility] Bilirubin [Mass/Vol] 0.40 mg/dL 0.20-1.00 [facility] Comment on above: For patients on eltr ombopag therapy, use of Dimension [place] TBIL is not recommended. Chloride [Moles/Vol] 109 mmol/L 98-107 [facility] Eosinophils/100 WBC (Bld) 1.8 % 0-5 [facility] Glucose [Mass/Vol] 121 mg/dL 74-106 [facility] Comment on above: Fasting Glucose resu lt from 100 to 125 mg/dL suggests IMPAIRED HOMEOSTASIS per A.D.A. criteria. Neutrophils (Bld) [#/Vol] 5.7 10*3/uL 2.0-7.7 [facility] Neutrophils/100 WBC (Bld) 59.6 % 47-70 [facility] Potassium [Moles/Vol] 3.9 mmol/L 3.5-5.1 [facility] Comment on above: Slight Hemolysis, Re sult may be falsely increased. Protein [Mass/Vol] 7.1 g/dL 6.4-8.2 [facility] Sodium [Moles/Vol] 140 mmol/L 136-145 [facility] WBC (Bld) [#/Vol] 9.6 10*3/uL 4.4-11.0 [facility] Basophil percentage 0-5 SEEN /hpf 0-5 [facility] Beta hCG serum qualOrdered B y: Dr. Etienne on 08-15-2022 Beta HCG ( test) Ql Negative [facility] Bilirubin Test strip Ql (U)O rdered By: Dr. Etienne on 08-15-2022 Bilirubin Ql (U) Negative Negative [facility] Blood erythrocytes count (nu mber/volume)Ordered By: Dr. Etienne on 08-15-2022 RBC (Bld) [#/Vol] 4.39 10*6/uL 4.2-5.4 [facility] Blood hemoglobin measurement (mass/volume)Ordered By: Dr. Etienne on 08-15-2022 Hemoglobin (Bld) [Mass/Vol] 12.6 g/dL 12.0-15.0 [facility] Blood lymphocytes/100 leukoc ytesOrdered By: Dr. Etienne on 08-15-2022 Lymphocytes/100 WBC (Bld) 28.3 % 19-41 [facility] Blood monocytes/100 leukocyt esOrdered By: Dr. Etienne on 08-15-2022 Monocytes/100 WBC (Bld) 9.2 % 0-10 [facility] Blood platelet mean volumeOr dered By: Dr. Etienne on 08-15-2022 Platelet mean volume (Bld) [Entitic vol] 9.0 fL 6.2-12.0 [facility] Determination of erythrocyte mean corpuscular volume (MCV)Ordered By: Dr. Etienne on 08-15-2022 MCV (RBC) [Entitic vol] 87.5 fL 81-99 [facility] Hematocrit Auto (Bld) [Volum e fraction]Ordered By: Dr. Etienne on 08-15-2022 Hematocrit (Bld) [Volume fraction] 38.4 % 37-47 [facility] Ketones Test strip Ql (U)Ord ered By: Dr. Etienne on 08-15-2022 Ketones Ql (U) Negative Negative [facility] Laboratory - Chemistry and C hemistry - challengeOrdered By: Dr. Etienne on 08-15-2022 ALP [Catalytic activity/Vol] 67 U/L 45-117 [facility] ALT [Catalytic activity/Vol] 128 U/L 13-56 [facility] CO2 [Moles/Vol] 25.0 mmol/L 21.0-32.0 [facility] Globulin (S) [Mass/Vol] 3.9 g/dL 2.2-4.2 [facility] Lipase [Catalytic activity/Vol] 45 U/L 13-75 [facility] Comment on above: Please note:LIPASE r evised reference range effective 22. New Lipase methodology. Expected to produce lower values than the previous assay method. NEW Reference Range: 13 - 75 U/L Urea nitrogen/Creatinine [Mass ratio] 16.2 mg/mg 10-20 [facility] Laboratory - Hematology and Cell countsOrdered By: Dr. Etienne on 08-15-2022 Erythrocyte distribution width (RBC) [Entitic vol] 43.6 fL 35.1-43.9 [facility] Erythrocyte distribution width (RBC) [Ratio] 13.5 % 11.6-14.6 [facility] Immature granulocytes/100 WBC (Bld) 0.600 % 0.0-0.9 [facility] Comment on above: IG% - Immature Granu locytes (promyelocytes, myelocytes and metamyelocytes) > 1% indicates that a LEFT SHIFT is Present. MCH (RBC) [Entitic mass] 28.7 pg 27.0-32.0 [facility] Nucleated RBC/100 WBC (Bld) [Ratio] 0 % 0-5 [facility] MCHC Auto (RBC) [Mass/Vol]Or dered By: Dr. Etienne on 08-15-2022 MCHC (RBC) [Mass/Vol] 32.8 g/dL 32-36 [facility] Mucus LM Ql (Urine sed)Order ed By: Dr. Etienne on 08-15-2022 Mucus Ql (Urine sed) 0 SEEN /hpf [facility] Nitrite Test strip Ql (U)Ord ered By: Dr. Etienne on 08-15-2022 Nitrite Ql (U) Negative Negative [facility] No Panel InformationOrdered By: Dr. Etienne on 08-15-2022 Estimated Creatinine Clearance Calc 122.99 ml/min [facility] Estimated GFR (MDRD) Amer 135 mL/min >60 [facility] Comment on above: GFR Calc Estimated GFR (MDRD) Non-Af Amer 112 mL/min >60 [facility] Comment on above: Non- GFR Calc [place] Level 0.60 mmol/L 0.60-1.20 [facility] Platelets bldOrdered By: Dr. Etienne on 08-15-2022 Platelets (Bld) [#/Vol] 311 10*3/uL 150-450 [facility] Protein Test strip Ql (U)Ord ered By: Dr. Etienne on 08-15-2022 Protein Ql (U) 15 mg/dl Negative [facility] Serum or plasma albumin cherelle urement (mass/volume)Ordered By: Dr. Etienne on 08-15-2022 Albumin [Mass/Vol] 3.2 g/dL 3.2-5.0 [facility] Serum or plasma albumin/glob ulin mass ratioOrdered By: Dr. Etienne on 08-15-2022 Albumin/Globulin [Mass ratio] 0.8 {ratio} 0.9-2.4 [facility] Serum or plasma calcium cherelle urement (mass/volume)Ordered By: Dr. Etienne on 08-15-2022 Calcium [Mass/Vol] 9.0 mg/dL 8.5-10.1 [facility] Serum or plasma creatinine m easurement (mass/volume)Ordered By: Dr. Etienne on 08-15-2022 Creatinine [Mass/Vol] 0.68 mg/dL 0.55-1.02 [facility] Comment on above: The validity of the calculated GFR & GFRAA in patients over 70 years has not been determined. Clinical correlation is essential. Serum or plasma urea nitroge n measurement (mass/volume)Ordered By: Dr. Etienne on 08-15-2022 Urea nitrogen [Mass/Vol] 11 mg/dL 7-18 [facility] Squamous epithelial cells de tection in urine sediment by light microscopyOrdered By: Dr. Etienne on 08-15-2022 Epithelial cells.squamous LM Ql (Urine sed) 0-5 SEEN /hpf 5-10 [facility] Thin prep Papanicolaou smear with manual screeningOrdered By: Dr. Eteinne on 08-15-2022 Thin prep Papanicolaou smear with manual screening 49 U/L 15-37 [facility] Comment on above: Slight Hemolysis, Re sult may be falsely increased. Thin prep Papanicolaou smear with manual screening 6 5-15 [facility] Urine blood detectionOrdered By: Dr. Etienne on 08-15-2022 RBC Ql (U) Negative Negative [facility] RBC Ql (U) 0 SEEN /hpf 0-5 [facility] Urine clarityOrdered By: Dr. Etienne on 08-15-2022 Clarity (U) Sl. Cloudy Clear [facility] Urine color determinationOrd ered By: Dr. Etienne on 08-15-2022 Color (U) Yellow Yellow [facility] Urine glucose detectionOrder ed By: Dr. Etienne on 08-15-2022 Glucose Ql (U) Normal mg/dl Normal [facility] Urine leukocyte esterase det ection by dipstickOrdered By: Dr. Etienne on 08-15-2022 Leukocyte esterase Test strip Ql (U) 25 /ul Negative [facility] Urine pHOrdered By: Dr. Michael jacinto on 08-15-2022 pH (U) 6.0 [pH] 5.0 - 8.0 [facility] Urine sediment bacteria coun t by microscopy (number/high power field)Ordered By: Dr. Etienne on 08-15-2022 Bacteria LM.HPF (Urine sed) [#/Area] 1 /[HPF] None Seen [facility] Urine specific gravity measu rementOrdered By: Dr. Etienne on 08-15-2022 Specific gravity (U) [Rel density] 1.020 1.002-1.030 [facility] Urobilinogen Auto test strip Ql (U)Ordered By: Dr. Etienne on 08-15-2022 Urobilinogen Ql (U) Normal mg/dl Normal [facility] Beta hCG serum qualOrdered B y: Dr. Dutta on 08-08-2022 Beta HCG ( test) Ql Negative [facility] Thin prep Papanicolaou smear with manual screeningOrdered By: Zeus Miller on 03-03-2022 Genital Culture Streptococcus agalac tiae (B) [facility] Gram stain for investigation of transfusion reactionOrdered By: Zeus Miller on 03-01-2022 Microscopic observation Gram stain Nom (Unsp spec) [facility] Laboratory - Chemistry and C hemistry - challengeOrdered By: Zeus Miller on 02-28-2022 Free T4 [Mass/Vol] 1.05 ng/dL 0.76-1.46 [facility] No Panel InformationOrdered By: Zeus Miller on 02-28-2022 Dehydroepiandrosterone Sulfate 130.0 ug/dL 84.8-378.0 [facility] No Panel InformationOrdered By: Karina Guerra on 02-28-2022 [place] Level 0.80 mmol/L 0.60-1.20 [facility] Thyroid Stimulating Hormone (TSH) 3.69 uIU/mL 0.358-3.74 [facility] Serum or plasma 17-hydroxypr ogesterone measurement (mass/volume)Ordered By: Zeus Miller on 02-28-2022 17-Hydroxyprogesterone [Mass/Vol] 61 ng/dL . [facility] Comment on above: Adult Female Follicu lar 15 - 70 Luteal 35 - 290Performed at: [facility] [id number] Director: Harsh Harris MD, Phone: [phone] Serum or plasma testosterone free measurement (mass/volume)Ordered By: Zeus Miller on 02-28-2022 Testosterone Free [Mass/Vol] 2.8 pg/mL 0.0-4.2 [facility] Serum or plasma thyroperoxid ase antibody assay (units/volume)Ordered By: Zeus Miller on 02-28-2022 TPO Ab Qn [IU]/mL 0-34 [facility] Comment on above: Performed at: [address] [id number] Director: Neeraj Marte PhD, Phone: [phone] at: [facility] [id number] Director: Harsh Harris MD, Phone: [phone] No Panel InformationOrdered By: Andreas Oliva on 02-17-2022 Stool Calprotectin 137 ug/g 0-120 [facility] Comment on above: Concentration Interp retation Follow-Up<16 - 50 ug/g Normal None>50 -120 ug/g Borderline Re-evaluate in 4-6 weeks >120 ug/g Abnormal Repeat as clinically indicatedPerformed at: [facility] [id number] Director: Harsh Harris MD, Phone: [phone] Stool Pancreatic Elastase 329 >200 [facility] Comment on above: Result Units: ug Graciela st./g Severe Pancreatic Insufficiency: <100 Moderate Pancreatic Insufficiency: 100 - 200 Normal: >200Performed at: [address] [id number] Director: Harsh Harris MD, Phone: [phone] Stool lactoferrin detection by immunoassayOrdered By: Andreas Oliva on 12-30-2022 Lactoferrin IA Ql (Stl) [facility] Absolute lymphocyte countOrd ered By: Andreas Oliva on 02-15-2022 Lymphocytes Auto (Unsp spec) [#/Vol] 2.13 10*3/uL 0.83-4.51 [facility] Albumin Elph [Mass/Vol]Order ed By: Andreas Oliva on 02-15-2022 Albumin [Mass/Vol] 3.6 g/dL 2.9-4.4 [facility] Atypical perinuclear antineu trophil cytoplasmic antibodies measurementOrdered By: Andreasneal Oliva on 02-15-2022 Neutrophil cytoplasmic Ab.perinuclear.atypical IF (S) [Titer] <1:20 titer Neg:<1:20 [facility] Comment on above: The atypical pANCA p attern has been observed in asignificant percentage of patients with ulcerative colitis,primary sclerosing cholangitis and autoimmune hepatitis. Basophil percentageOrdered B y: Andreasadalgisa Oliva on 02-15-2022 Ammonia (P) [Moles/Vol] 20.0 umol/L 11-32 [facility] Basophil percentage < 0.2 AI 0.0-0.9 [facility] Basophils/100 WBC (Bld) 0.5 % 0-1 [facility] Bilirubin [Mass/Vol] 0.40 mg/dL 0.20-1.00 [facility] Comment on above: For patients on eltr ombopag therapy, use of Dimension [place] TBIL is not recommended. Chloride [Moles/Vol] 109 mmol/L 98-107 [facility] Eosinophils/100 WBC (Bld) 2.3 % 0-5 [facility] Glucose [Mass/Vol] 112 mg/dL 74-106 [facility] Comment on above: Fasting Glucose resu lt from 100 to 125 mg/dL suggests IMPAIRED HOMEOSTASIS per A.D.A. criteria. LDH [Catalytic activity/Vol] 187 U/L 84-246 [facility] Neutrophils (Bld) [#/Vol] 4.4 10*3/uL 2.0-7.7 [facility] Neutrophils/100 WBC (Bld) 60.9 % 47-70 [facility] Potassium [Moles/Vol] 4.4 mmol/L 3.5-5.1 [facility] Protein [Mass/Vol] 7.4 g/dL 6.4-8.2 [facility] Sodium [Moles/Vol] 137 mmol/L 136-145 [facility] WBC (Bld) [#/Vol] 7.3 10*3/uL 4.4-11.0 [facility] Blood erythrocytes count (nu mber/volume)Ordered By: Andreas Oliva on 02-15-2022 RBC (Bld) [#/Vol] 4.35 10*6/uL 4.2-5.4 [facility] Blood hemoglobin measurement (mass/volume)Ordered By: Andreas Oliva on 02-15-2022 Hemoglobin (Bld) [Mass/Vol] 12.9 g/dL 12.0-15.0 [facility] Blood lymphocytes/100 leukoc ytesOrdered By: Andreas Oliva on 02-15-2022 Lymphocytes/100 WBC (Bld) 29.1 % 19-41 [facility] Blood monocytes/100 leukocyt esOrdered By: Andreas Oliva on 02-15-2022 Monocytes/100 WBC (Bld) 6.8 % 0-10 [facility] Blood platelet mean volumeOr dered By: Andreas Oliva on 02-15-2022 Platelet mean volume (Bld) [Entitic vol] 8.9 fL 6.2-12.0 [facility] Determination of erythrocyte mean corpuscular volume (MCV)Ordered By: Andreas Oliva on 02-15-2022 MCV (RBC) [Entitic vol] 91.3 fL 81-99 [facility] Erythrocyte sedimentation ra teOrdered By: Andreas Oliva on 02-15-2022 ESR (Bld) [Velocity] 28 mm/h 0-30 [facility] HIV 1 and HIV-2 antibody ass ay with HIV-1 p24 antigen detectionOrdered By: Andreas Oliva on 02-15-2022 HIV 1+2 Ab+HIV1 p24 Ag IA Ql Non-Reactive Nonreactive [facility] Hematocrit Auto (Bld) [Volum e fraction]Ordered By: Andreas Oliva on 02-15-2022 Hematocrit (Bld) [Volume fraction] 39.7 % 37-47 [facility] INR in Blood by Coagulation assayOrdered By: Andreas Oliva on 02-15-2022 INR Coag (Bld) [Relative time] 1.1 {INR} [facility] Interpretation of serum or p lasma protein pattern by immunofixation (narrative resultOrdered By: Andreas Oliva on 02-15-2022 Protein Fractions Immunofixation [place] [Interp] See comment [facility] Comment on above: Result: Not Observed Laboratory - Chemistry and C hemistry - challengeOrdered By: Andreas Oliva on 02-15-2022 ALP [Catalytic activity/Vol] 52 U/L 45-117 [facility] ALT [Catalytic activity/Vol] 92 U/L 13-56 [facility] CO2 [Moles/Vol] 24.0 mmol/L 21.0-32.0 [facility] Urea nitrogen/Creatinine [Mass ratio] 19.9 mg/mg 10-20 [facility] Laboratory - CoagulationOrde red By: Andreas Oliva on 02-15-2022 PT Coag (PPP) [Time] 13.7 s 11.7-14.9 [facility] Laboratory - Hematology and Cell countsOrdered By: Andreas Oliva on 02-15-2022 Erythrocyte distribution width (RBC) [Entitic vol] 43.8 fL 35.1-43.9 [facility] Erythrocyte distribution width (RBC) [Ratio] 12.9 % 11.6-14.6 [facility] Immature granulocytes/100 WBC (Bld) 0.400 % 0.0-0.9 [facility] Comment on above: IG% - Immature Granu locytes (promyelocytes, myelocytes and metamyelocytes) > 1% indicates that a LEFT SHIFT is Present. MCH (RBC) [Entitic mass] 29.7 pg 27.0-32.0 [facility] Nucleated RBC/100 WBC (Bld) [Ratio] 0 % 0-5 [facility] MCHC Auto (RBC) [Mass/Vol]Or dered By: Andreas Oliva on 02-15-2022 MCHC (RBC) [Mass/Vol] 32.5 g/dL 32-36 [facility] No Panel InformationOrdered By: Andreas Oliva on 02-15-2022 Addendum Document Comment . [facility] Comment on above: Protein electrophore sis scan will follow via computer,mail, or food cart attendant delivery. Centromere B Antibody <0.2 AI 0.0-0.9 [facility] Ceruloplasmin 26.2 mg/dL 19.0-39.0 [facility] Endomysial IgA Antibody Negative Negative [facility] Estimated GFR (MDRD) Amer 130 mL/min >60 [facility] Comment on above: GFR Calc Estimated GFR (MDRD) Non-Af Amer 107 mL/min >60 [facility] Comment on above: Non- GFR Calc Haptoglobin 219 mg/dL 33-278 [facility] Comment on above: Performed at: [employer] [address] [id number] Director: Neeraj Marte PhD, Phone: [phone] at: [address] [id number] Director: Harsh Harris MD, Phone: [phone] Hepatitis A IgM Antibody Negative Negative [facility] Hepatitis B Core IgM Antibody Negative Negative [facility] Hepatitis C Antibody (EIA) 0.1 s/co ratio 0.0-0.9 [facility] Hepatitis C Antibody Comment Comment . [facility] Comment on above: NegativeNot infected with HCV, unless recent infection issuspected or other evidence exists to indicate HCVinfection. Immunoglobulin E 18 IU/mL 6-495 [facility] Miscellaneous Test See comment [facility] Comment on above: TEST RESULT LIMITSIB [...] disease behavior risk stratification. TESTING PERFORMED AT [facility]. ORIGINAL REPORT ON FILE IN LAB CONTAINS ADDITIONAL TEST SITE INFORMATION. FOOD PREPARATION KITCHEN AIDE Antibody <0.2 AI 0.0-0.9 [facility] No Panel InformationOrdered By: Zeus Miller on 02-15-2022 Follicle Stimulating Hormone 3.8 mIU/mL [facility] Comment on above: NORMAL REFERENCE RAN GES FEMALE FOLLICULAR 2.3 - 12.6 mIU/mL MID-CYCLE PEAK 5.2 - 17.5 mIU/mL LUTEAL 1.7 - 12.9 mIU/mL POST-MENOPAUSAL ON MHT 5.9 - 72.8 mIU/mL NOT ON MHT 12.7 - 132.2 mlU/mL MALE 0.7 - 10.8 mIU/mL Platelets bldOrdered By: Mello Oliva on 02-15-2022 Platelets (Bld) [#/Vol] 367 10*3/uL 150-450 [facility] Serum DNA double strand anti body assay (units/volume)Ordered By: Andreas Oliva on 02-15-2022 DNA double strand Ab Qn (S) 1 [IU]/mL 0-9 [facility] Comment on above: Negative <5 Equivoca l 5 - 9 Positive >9 Serum Gabriella-1 antibody assay (u nits/volume)Ordered By: Andreas Oliva on 02-15-2022 Gabriella-1 extractable nuclear Ab Qn (S) <0.2 AI 0.0-0.9 [facility] Serum Scl-70 extractable nuc lear antibody assay (units/volume)Ordered By: Andreas Oliva on 02-15-2022 SCL-70 extractable nuclear Ab Qn (S) <0.2 AI 0.0-0.9 [facility] Serum Dykes extractable nucl ear antibody detectionOrdered By: Andreas Oliva on 02-15-2022 Dykes extractable nuclear Ab Ql (S) <0.2 AI 0.0-0.9 [facility] Serum [id number] measu rement by electrophoresisOrdered By: Andreas Oliva on 02-15-2022 Alpha 1 globulin Elph [Mass/Vol] 0.2 g/dL 0.0-0.4 [facility] Alpha 1 globulin Elph [Mass/Vol] 0.9 g/dL 0.4-1.0 [facility] Serum classic neutrophil cyt oplasmic antibody assay (units/volume)Ordered By: Andreasneal Oliva on 02-15-2022 Neutrophil cytoplasmic Ab.classic Qn (S) <1:20 titer Neg:<1:20 [facility] Serum globulin measurement ( mass/volume)Ordered By: Andreas Oliva on 02-15-2022 Globulin (S) [Mass/Vol] 3.4 g/dL 2.2-3.9 [facility] Serum mitochondria antibody detectionOrdered By: Andreas Oliva on 02-15-2022 Mitochondria Ab Ql (S) <20.0 Units 0.0-20.0 [facility] Comment on above: Negative 0.0 - 20.0 Equivocal 20.1 - 24.9 Positive >24.9Mitochondrial (M2) Antibodies are found in 90-96% ofpatients with primary biliary cirrhosis.Performed at: [facility] [id number] Director: Neeraj Marte PhD, Phone: [phone] Serum or plasma C reactive p rotein measurement (mass/volume)Ordered By: Andreas Oliva on 02-15-2022 CRP [Mass/Vol] 4.50 mg/L 0.0-3.0 [facility] Comment on above: C-Reactive Protein ( CRP) provides useful information for thediagnosis, therapy and monitoring of inflammatory processesand associated diseases. For the evaluation of Relative Riskfor Cardiovascular Disease, a High Sensitivity CRP (HSCRP)should be ordered. Serum or plasma IgA measurem ent (mass/volume)Ordered By: Andreas Oliva on 02-15-2022 IgA [Mass/Vol] 163 mg/dL 87-352 [facility] Serum or plasma IgG measurem ent (mass/volume)Ordered By: Andreas Oliva on 02-15-2022 IgG [Mass/Vol] 972 mg/dL [phone] [facility] Serum or plasma IgM measurem ent (mass/volume)Ordered By: Andreas Oliva on 02-15-2022 IgM [Mass/Vol] 115 mg/dL 26-217 [facility] Serum or plasma actin IgG an tibody assay (units/volume)Ordered By: Andreas Oliva on 02-15-2022 Actin IgG Qn 9 Units 0-19 [facility] Comment on above: Negative 0 - 19 Weak positive 20 - 30 Moderate to strong positive >30 Actin Antibodies are found in 52-85% of patients with autoimmune hepatitis or chronic active hepatitis and in 22% of patients with primary biliary cirrhosis. Serum or plasma albumin cherelle urement (mass/volume)Ordered By: Andreas Oliva on 02-15-2022 Albumin [Mass/Vol] 3.5 g/dL 3.2-5.0 [facility] Serum or plasma albumin/glob ulin mass ratioOrdered By: Andreas Oliva on 02-15-2022 Albumin/Globulin [Mass ratio] 0.9 {ratio} 0.9-2.4 [facility] Serum or plasma [id number] protein tumor marker measurement (units/volume)Ordered By: Andreas Oliva on 02-15-2022 AFP.tumor marker Qn < 1.8 ng/mL 0.0-4.7 [facility] Comment on above: [employer] El ectrochemiluminescence Immunoassay(ECLIA)Values obtained with different assay methods or kits cannotbe used interchangeably. Results cannot be interpreted asabsolute evidence of the presence or absence of malignantdisease.This test is not interpretable in females. Serum or plasma angiotensin converting enzyme measurement (enzymatic activity/volume)Ordered By: Andreas Oliva on 02-15-2022 Angiotensin converting enzyme [Catalytic activity/Vol] 31 U/L 14-82 [facility] Serum or plasma beta globuli n measurement by electrophoresis (mass/volume)Ordered By: Andreas Oliva on 02-15-2022 Beta globulin Elph [Mass/Vol] 1.2 g/dL 0.7-1.3 [facility] Serum or plasma calcium cherelle urement (mass/volume)Ordered By: Andreas Oliva on 02-15-2022 Calcium [Mass/Vol] 9.1 mg/dL 8.5-10.1 [facility] Serum or plasma creatinine m easurement (mass/volume)Ordered By: Andreas Oliva on 02-15-2022 Creatinine [Mass/Vol] 0.70 mg/dL 0.55-1.02 [facility] Comment on above: The validity of the calculated GFR & GFRAA in patients over 70 years has not been determined. Clinical correlation is essential. Serum or plasma estradiol (E 2) measurement (mass/volume)Ordered By: Zeus Miller on 02-15-2022 E2 [Mass/Vol] 42.6 pg/mL [facility] Comment on above: NORMAL REFERENCE [...] on 02-15-2022 Ferritin [Mass/Vol] 138 ng/mL 8-252 [facility] Serum or plasma gamma globul in measurement by electrophoresis (mass/volume)Ordered By: Andreas Oliva on 02-15-2022 Gamma globulin Elph [Mass/Vol] 1.1 g/dL 0.4-1.8 [facility] Serum or plasma hepatitis B virus surface antigen detection by immunoassayOrdered By: Andreas Oliva on 02-15-2022 HBV surface Ag IA Ql Negative Negative [facility] Serum or plasma immunoelectr ophoresis interpretation (nominal result)Ordered By: Andreas Oliva on 02-15-2022 Interpretation IEP [Interp] Comment . [facility] Comment on above: No monoclonality det ected. Serum or plasma prolactin me asurement (mass/volume)Ordered By: Zeus Miller on 02-15-2022 Prolactin [Mass/Vol] 9.0 ng/mL [facility] Comment on above: NORMAL REFERENCE RAN GES FEMALE NON- 2.2 - 30.3 ng/mL 8.1 - 347.6 ng/mL POST-MENOPAUSAL 0.7 - 31.5 ng/mL MALE 2.5 - 17.4 ng/mL Serum or plasma urea nitroge n measurement (mass/volume)Ordered By: Andreas Oliva on 02-15-2022 Urea nitrogen [Mass/Vol] 14 mg/dL 7-18 [facility] Serum perinuclear neutrophil cytoplasmic antibody titer by immunofluorescenceOrdered By: Andreas Oliva on 02-15-2022 Neutrophil cytoplasmic Ab.perinuclear IF (S) [Titer] <1:20 titer Neg:<1:20 [facility] Comment on above: The presence of posi tive fluorescence exhibiting P-ANCA orC-ANCA patterns alone is not specific for the diagnosis ofWegener's Granulomatosis (WG) or microscopic polyangiitis.Decisions about treatment should not be based solely onANCA IFA results. The International ANCA Group Consensusrecommends follow up testing of positive sera with both CT-3 and MPO-ANCA enzyme immunoassays. As many as 5% serumsamples are positive only by EIA. Ref. AM J Clin Kskeuq2283;111:507-513. Serum tissue transglutaminas e IgA antibody assay (units/volume)Ordered By: Andreas Oliva on 02-15-2022 tTG IgA Qn (S) <2 U/mL 0-3 [facility] Comment on above: Negative 0 [...] smear with manual screening 33 U/L 15-37 [facility] Thin prep Papanicolaou smear with manual screening 4 5-15 [facility] Thin prep Papanicolaou smear with manual screening 1.1 0.7-1.7 [facility] Thin prep Papanicolaou smear with manual screening 128 ug/dL 80-158 [facility] Comment on above: Detection Limit = 5 Total protein bloodOrdered B y: Andreas Oliva on 02-15-2022 Protein [Mass/Vol] 7.0 g/dL 6.0-8.5 [facility] Whole blood hemoglobin A1c/t otal hemoglobin ratio (mass fraction)Ordered By: Andreas Oliva on 02-15-2022 HbA1c (Bld) [Mass fraction] 5.9 % 3.8-5.6 [facility] Comment on above: Normal < 5.7 % Predi abetic 5.7 - 6.4 % Diabetic >or= 6.5 % Please note range changes. Laboratory - Chemistry and C hemistry - challengeOrdered By: DANIEL BETANCUR on 01-31-2022 Free T4 [Mass/Vol] 1.04 ng/dL 0.76-1.46 [facility] No Panel InformationOrdered By: DANIEL BETANCUR on 01-31-2022 Thyroid Stimulating Hormone (TSH) 4.77 uIU/mL 0.358-3.74 [facility] [facility] Ova and parasitesOrdered By: Dr. Angelo on 01-27-2022 Ova and parasites identified LM Nom (Unsp spec) [facility] Absolute lymphocyte countOrd ered By: Dr. Angelo on 01-24-2022 Lymphocytes Auto (Unsp spec) [#/Vol] 2.71 10*3/uL 0.83-4.51 [facility] Basophil percentageOrdered B y: Dr. Angelo on 01-24-2022 Basophils/100 WBC (Bld) 0.6 % 0-1 [facility] Bilirubin [Mass/Vol] 0.50 mg/dL 0.20-1.00 [facility] Comment on above: For patients on eltr ombopag therapy, use of Dimension [place] TBIL is not recommended. Chloride [Moles/Vol] 109 mmol/L 98-107 [facility] Eosinophils/100 WBC (Bld) 2.9 % 0-5 [facility] Glucose [Mass/Vol] 114 mg/dL 74-106 [facility] Comment on above: Fasting Glucose resu lt from 100 to 125 mg/dL suggests IMPAIRED HOMEOSTASIS per A.D.A. criteria. Lactate [Moles/Vol] 0.8 mmol/L 0.4-2.0 [facility] Neutrophils (Bld) [#/Vol] 4.8 10*3/uL 2.0-7.7 [facility] Neutrophils/100 WBC (Bld) 56.1 % 47-70 [facility] Potassium [Moles/Vol] 3.8 mmol/L 3.5-5.1 [facility] Protein [Mass/Vol] 7.3 g/dL 6.4-8.2 [facility] Sodium [Moles/Vol] 137 mmol/L 136-145 [facility] WBC (Bld) [#/Vol] 8.6 10*3/uL 4.4-11.0 [facility] Basophil percentage 0-5 SEEN /hpf 0-5 [facility] Bilirubin Test strip Ql (U)O rdered By: Dr. Angelo on 01-24-2022 Bilirubin Ql (U) Negative Negative [facility] Blood erythrocytes count (nu mber/volume)Ordered By: Dr. Angelo on 01-24-2022 RBC (Bld) [#/Vol] 4.14 10*6/uL 4.2-5.4 [facility] Blood hemoglobin measurement (mass/volume)Ordered By: Dr. Angelo on 01-24-2022 Hemoglobin (Bld) [Mass/Vol] 12.4 g/dL 12.0-15.0 [facility] Blood lymphocytes/100 leukoc ytesOrdered By: Dr. Angelo on 01-24-2022 Lymphocytes/100 WBC (Bld) 31.5 % 19-41 [facility] Blood monocytes/100 leukocyt esOrdered By: Dr. Angelo on 01-24-2022 Monocytes/100 WBC (Bld) 8.6 % 0-10 [facility] Blood platelet mean volumeOr dered By: Dr. Angelo on 01-24-2022 Platelet mean volume (Bld) [Entitic vol] 9.0 fL 6.2-12.0 [facility] Determination of erythrocyte mean corpuscular volume (MCV)Ordered By: Dr. Angelo on 01-24-2022 MCV (RBC) [Entitic vol] 91.5 fL 81-99 [facility] Hematocrit Auto (Bld) [Volum e fraction]Ordered By: Dr. Angelo on 01-24-2022 Hematocrit (Bld) [Volume fraction] 37.9 % 37-47 [facility] Ketones Test strip Ql (U)Ord ered By: Dr. Angelo on 01-24-2022 Ketones Ql (U) 5 mg/dl Negative [facility] Laboratory - Chemistry and C hemistry - challengeOrdered By: Dr. Angelo on 01-24-2022 ALP [Catalytic activity/Vol] 57 U/L 45-117 [facility] ALT [Catalytic activity/Vol] 160 U/L 13-56 [facility] CO2 [Moles/Vol] 24.0 mmol/L 21.0-32.0 [facility] Globulin (S) [Mass/Vol] 3.7 g/dL 2.2-4.2 [facility] Lipase [Catalytic activity/Vol] 144 U/L 73-393 [facility] Urea nitrogen/Creatinine [Mass ratio] 18.6 mg/mg 10-20 [facility] HCG ( test) Ql (U) Negative [facility] Comment on above: Very dilute urine sp ecimens, as indicated by a low specificgravity, may not contain patient admitting representative levels of hCG. If is still suspected, a first morning urinespecimen should be collected 48 hours later and tested. Laboratory - Hematology and Cell countsOrdered By: Dr. Angelo on 01-24-2022 Erythrocyte distribution width (RBC) [Entitic vol] 44.2 fL 35.1-43.9 [facility] Erythrocyte distribution width (RBC) [Ratio] 13.2 % 11.6-14.6 [facility] Immature granulocytes/100 WBC (Bld) 0.300 % 0.0-0.9 [facility] Comment on above: IG% - Immature Granu locytes (promyelocytes, myelocytes and metamyelocytes) > 1% indicates that a LEFT SHIFT is Present. MCH (RBC) [Entitic mass] 30.0 pg 27.0-32.0 [facility] Nucleated RBC/100 WBC (Bld) [Ratio] 0 % 0-5 [facility] [Mass/Vol]Or dered By: Dr. Angelo on 01-24-2022 MCHC (RBC) [Mass/Vol] 32.7 g/dL 32-36 [facility] Mucus LM Ql (Urine sed)Order ed By: Dr. Angelo on 01-24-2022 Mucus Ql (Urine sed) 0 SEEN /hpf [facility] Nitrite Test strip Ql (U)Ord ered By: Dr. Angelo on 01-24-2022 Nitrite Ql (U) Negative Negative [facility] No Panel InformationOrdered By: Dr. Angelo on 01-24-2022 Estimated Creatinine Clearance Calc 97.24 ml/min [facility] Estimated GFR (MDRD) Amer 104 mL/min >60 [facility] Comment on above: GFR Calc Estimated GFR (MDRD) Non-Af Amer 86 mL/min >60 [facility] Comment on above: Non- GFR Calc Platelets bldOrdered By: Dr. Agnelo on 01-24-2022 Platelets (Bld) [#/Vol] 328 10*3/uL 150-450 [facility] Protein Test strip Ql (U)Ord ered By: Dr. Angelo on 01-24-2022 Protein Ql (U) 30 mg/dl Negative [facility] Serum or plasma albumin cherelle urement (mass/volume)Ordered By: Dr. Angelo on 01-24-2022 Albumin [Mass/Vol] 3.6 g/dL 3.2-5.0 [facility] Serum or plasma albumin/glob ulin mass ratioOrdered By: Dr. Angelo on 01-24-2022 Albumin/Globulin [Mass ratio] 1.0 {ratio} 0.9-2.4 [facility] Serum or plasma calcium cherelle urement (mass/volume)Ordered By: Dr. Angelo on 01-24-2022 Calcium [Mass/Vol] 9.0 mg/dL 8.5-10.1 [facility] Serum or plasma creatinine m easurement (mass/volume)Ordered By: Dr. Angelo on 01-24-2022 Creatinine [Mass/Vol] 0.86 mg/dL 0.55-1.02 [facility] Comment on above: The validity of the calculated GFR & GFRAA in patients over 70 years has not been determined. Clinical correlation is essential. Serum or plasma urea nitroge n measurement (mass/volume)Ordered By: Dr. Angelo on 01-24-2022 Urea nitrogen [Mass/Vol] 16 mg/dL 7-18 [facility] Squamous epithelial cells de tection in urine sediment by light microscopyOrdered By: Dr. Angelo on 01-24-2022 Epithelial cells.squamous LM Ql (Urine sed) 0-5 SEEN /hpf 5-10 [facility] Thin prep Papanicolaou smear with manual screeningOrdered By: Dr. Angelo on 01-24-2022 Thin prep Papanicolaou smear with manual screening 63 U/L 15-37 [facility] Thin prep Papanicolaou smear with manual screening 4 5-15 [facility] Urine blood detectionOrdered By: Dr. Angelo on 01-24-2022 RBC Ql (U) 10 /ul Negative [facility] RBC Ql (U) 0-5 SEEN /hpf 0-5 [facility] Urine clarityOrdered By: Dr. Angelo on 01-24-2022 Clarity (U) Sl. Cloudy Clear [facility] Urine color determinationOrd ered By: Dr. Angelo on 01-24-2022 Color (U) Yellow Yellow [facility] Urine glucose detectionOrder ed By: Dr. Angelo on 01-24-2022 Glucose Ql (U) Normal mg/dl Normal [facility] Urine leukocyte esterase det ection by dipstickOrdered By: Dr. Angelo on 01-24-2022 Leukocyte esterase Test strip Ql (U) 25 /ul Negative [facility] Urine pHOrdered By: Dr. Rosa foster on 01-24-2022 pH (U) 5.0 [pH] 5.0 - 8.0 [facility] Urine sediment bacteria coun t by microscopy (number/high power field)Ordered By: Dr. Angelo on 01-24-2022 Bacteria LM.HPF (Urine sed) [#/Area] 1 /[HPF] None Seen [facility] Urine specific gravity measu rementOrdered By: Dr. Angelo on 01-24-2022 Specific gravity (U) [Rel density] 1.025 1.002-1.030 [facility] Urobilinogen Auto test strip Ql (U)Ordered By: Dr. Angelo on 01-24-2022 Urobilinogen Ql (U) Normal mg/dl Normal [facility] Absolute lymphocyte countOrd ered By: Dr. Pace on 01-15-2022 Lymphocytes Auto (Unsp spec) [#/Vol] 2.40 10*3/uL 0.83-4.51 [facility] Basophil percentageOrdered B y: Dr. Pace on 01-15-2022 Basophils/100 WBC (Bld) 0.6 % 0-1 [facility] Chloride [Moles/Vol] 108 mmol/L 98-107 [facility] Eosinophils/100 WBC (Bld) 2.7 % 0-5 [facility] Glucose [Mass/Vol] 118 mg/dL 74-106 [facility] Comment on above: Fasting Glucose resu lt from 100 to 125 mg/dL suggests IMPAIRED HOMEOSTASIS per A.D.A. criteria. Neutrophils (Bld) [#/Vol] 4.7 10*3/uL 2.0-7.7 [facility] Neutrophils/100 WBC (Bld) 58.8 % 47-70 [facility] Potassium [Moles/Vol] 4.4 mmol/L 3.5-5.1 [facility] Sodium [Moles/Vol] 138 mmol/L 136-145 [facility] WBC (Bld) [#/Vol] 8.1 10*3/uL 4.4-11.0 [facility] Blood erythrocytes count (nu mber/volume)Ordered By: Dr. Pace on 01-15-2022 RBC (Bld) [#/Vol] 4.29 10*6/uL 4.2-5.4 [facility] Blood hemoglobin measurement (mass/volume)Ordered By: Dr. Pace on 01-15-2022 Hemoglobin (Bld) [Mass/Vol] 13.0 g/dL 12.0-15.0 [facility] Blood lymphocytes/100 leukoc ytesOrdered By: Dr. Pace on 01-15-2022 Lymphocytes/100 WBC (Bld) 29.7 % 19-41 [facility] Blood monocytes/100 leukocyt esOrdered By: Dr. Pace on 01-15-2022 Monocytes/100 WBC (Bld) 7.8 % 0-10 [facility] Blood platelet mean volumeOr dered By: Dr. Pace on 01-15-2022 Platelet mean volume (Bld) [Entitic vol] 9.1 fL 6.2-12.0 [facility] Determination of erythrocyte mean corpuscular volume (MCV)Ordered By: Dr. Pace on 01-15-2022 MCV (RBC) [Entitic vol] 92.5 fL 81-99 [facility] Hematocrit Auto (Bld) [Volum e fraction]Ordered By: Dr. Pace on 01-15-2022 Hematocrit (Bld) [Volume fraction] 39.7 % 37-47 [facility] Laboratory - Chemistry and C hemistry - challengeOrdered By: Dr. Pace on 01-15-2022 CO2 [Moles/Vol] 27.0 mmol/L 21.0-32.0 [facility] Urea nitrogen/Creatinine [Mass ratio] 20.9 mg/mg 10-20 [facility] Laboratory - Hematology and Cell countsOrdered By: Dr. Pace on 01-15-2022 Erythrocyte distribution width (RBC) [Entitic vol] 44.6 fL 35.1-43.9 [facility] Erythrocyte distribution width (RBC) [Ratio] 13.2 % 11.6-14.6 [facility] Immature granulocytes/100 WBC (Bld) 0.400 % 0.0-0.9 [facility] Comment on above: IG% - Immature Granu locytes (promyelocytes, myelocytes and metamyelocytes) > 1% indicates that a LEFT SHIFT is Present. MCH (RBC) [Entitic mass] 30.3 pg 27.0-32.0 [facility] Nucleated RBC/100 WBC (Bld) [Ratio] 0 % 0-5 [facility] MCHC Auto (RBC) [Mass/Vol]Or dered By: Dr. Pace on 01-15-2022 MCHC (RBC) [Mass/Vol] 32.7 g/dL 32-36 [facility] No Panel InformationOrdered By: Dr. Pace on 01-15-2022 D-Dimer Quantitative (PE/DVT) 0.36 FEU/ug/m 0.27-0.49 [facility] Comment on above: NORMAL D-Dimer level (<0.50) indicates no DVT or PE. Estimated Creatinine Clearance Calc 134.89 ml/min [facility] Estimated GFR (MDRD) Amer 150 mL/min >60 [facility] Comment on above: GFR Calc Estimated GFR (MDRD) Non-Af Amer 124 mL/min >60 [facility] Comment on above: Non- GFR Calc Troponin I High Sensitivity 5 pg/mL 3.0-54.0 [facility] Comment on above: Please Note: New Renetta t Units and Gender Specific Reference Ranges. For more information see Policy Stat Procedure [place] High Sensitivity Troponin (TNIH) and attachments. Platelets bldOrdered By: Dr. Pace on 01-15-2022 Platelets (Bld) [#/Vol] 305 10*3/uL 150-450 [facility] Serum or plasma calcium cherelle urement (mass/volume)Ordered By: Dr. Pace on 01-15-2022 Calcium [Mass/Vol] 9.7 mg/dL 8.5-10.1 [facility] Serum or plasma creatinine m easurement (mass/volume)Ordered By: Dr. Pace on 01-15-2022 Creatinine [Mass/Vol] 0.62 mg/dL 0.55-1.02 [facility] Comment on above: The validity of the calculated GFR & GFRAA in patients over 70 years has not been determined. Clinical correlation is essential. Serum or plasma urea nitroge n measurement (mass/volume)Ordered By: Dr. Pace on 01-15-2022 Urea nitrogen [Mass/Vol] 13 mg/dL 7-18 [facility] Thin prep Papanicolaou smear with manual screeningOrdered By: Dr. Pace on 01-15-2022 Thin prep Papanicolaou smear with manual screening 3 5-15 [facility] Basophil percentageOrdered B y: Karina Guerra on 12-14-2021 Bilirubin [Mass/Vol] 0.40 mg/dL 0.20-1.00 [facility] Comment on above: For patients on eltr ombopag therapy, use of Dimension [place] TBIL is not recommended. Chloride [Moles/Vol] 107 mmol/L 98-107 [facility] Glucose [Mass/Vol] 122 mg/dL 74-106 [facility] Comment on above: Fasting Glucose resu lt from 100 to 125 mg/dL suggests IMPAIRED HOMEOSTASIS per A.D.A. criteria. Potassium [Moles/Vol] 4.4 mmol/L 3.5-5.1 [facility] Protein [Mass/Vol] 6.9 g/dL 6.4-8.2 [facility] Sodium [Moles/Vol] 137 mmol/L 136-145 [facility] Laboratory - Chemistry and C hemistry - challengeOrdered By: Karina Guerra on 12-14-2021 ALP [Catalytic activity/Vol] 53 U/L 45-117 [facility] ALT [Catalytic activity/Vol] 136 U/L 13-56 [facility] CO2 [Moles/Vol] 27.0 mmol/L 21.0-32.0 [facility] Free T4 [Mass/Vol] 0.96 ng/dL 0.76-1.46 [facility] Globulin (S) [Mass/Vol] 3.6 g/dL 2.2-4.2 [facility] Urea nitrogen/Creatinine [Mass ratio] 20.8 mg/mg 10-20 [facility] No Panel InformationOrdered By: Karina Guerra on 12-14-2021 Estimated GFR (MDRD) Amer 109 mL/min >60 [facility] Comment on above: GFR Calc Estimated GFR (MDRD) Non-Af Amer 90 mL/min >60 [facility] Comment on above: Non- GFR Calc [place] Level 1.10 mmol/L 0.60-1.20 [facility] Thyroid Stimulating Hormone (TSH) 6.04 uIU/mL 0.358-3.74 [facility] Serum or plasma albumin cherelle urement (mass/volume)Ordered By: Karina Guerra on 12-14-2021 Albumin [Mass/Vol] 3.3 g/dL 3.2-5.0 [facility] Serum or plasma albumin/glob ulin mass ratioOrdered By: Karina Guerra on 12-14-2021 Albumin/Globulin [Mass ratio] 0.9 {ratio} 0.9-2.4 [facility] Serum or plasma calcium cherelle urement (mass/volume)Ordered By: Karina Guerra on 12-14-2021 Calcium [Mass/Vol] 8.8 mg/dL 8.5-10.1 [facility] Serum or plasma creatinine m easurement (mass/volume)Ordered By: Karina Guerra on 12-14-2021 Creatinine [Mass/Vol] 0.82 mg/dL 0.55-1.02 [facility] Comment on above: The validity of the calculated GFR & GFRAA in patients over 70 years has not been determined. Clinical correlation is essential. Serum or plasma urea nitroge n measurement (mass/volume)Ordered By: Karina Guerra on 12-14-2021 Urea nitrogen [Mass/Vol] 17 mg/dL 7-18 [facility] Thin prep Papanicolaou smear with manual screeningOrdered By: Karina Guerra on 12-14-2021 Thin prep Papanicolaou smear with manual screening 59 U/L 15- [facility] Thin prep Papanicolaou smear with manual screening 3 5-15 [facility] Absolute lymphocyte counton 11-30-2021 Lymphocytes Auto (Unsp spec) [#/Vol] 2.45 10*3/uL 0.83-4.51 [facility] Basophil percentageon 2021 Basophil percentage 3.3 mg/dL 2.5-4.9 [facility] Basophils/100 WBC (Bld) 0.9 % 0-1 [facility] Bilirubin [Mass/Vol] 0.60 mg/dL 0.20-1.00 [facility] Comment on above: For patients on eltr ombopag therapy, use of Dimension [place] TBIL is not recommended. Chloride [Moles/Vol] 108 mmol/L 98-107 [facility] Cholesterol [Mass/Vol] 190 mg/dL <200 [facility] Comment on above: <200 mg/dL Desirable 200-240 mg/dL Borderline >240 mg/dL High Risk Eosinophils/100 WBC (Bld) 2.9 % 0-5 [facility] Glucose [Mass/Vol] 143 mg/dL 74-106 [facility] Comment on above: Fasting Glucose resu lt greater than or equal to 126 mg/dL suggests DIABETES MELLITUS per A.D.A. criteria. Neutrophils (Bld) [#/Vol] 3.4 10*3/uL 2.0-7.7 [facility] Neutrophils/100 WBC (Bld) 51.3 % 47-70 [facility] Potassium [Moles/Vol] 4.9 mmol/L 3.5-5.1 [facility] Protein [Mass/Vol] 7.4 g/dL 6.4-8.2 [facility] Sodium [Moles/Vol] 140 mmol/L 136-145 [facility] Triglyceride [Mass/Vol] 208 mg/dL <199 [facility] Comment on above: The drugs N-Acetylcy steine and Metamizole may falsely depress this assay.Serum Triglycerides Reference Interval Normal <150 mg/dL Borderline high 150 - 199 mg/dL High 200 - 499 mg/dL Very High > or = 500 mg/dL WBC (Bld) [#/Vol] 6.7 10*3/uL 4.4-11.0 [facility] Blood erythrocytes count (nu mber/volume)on 11-30-2021 RBC (Bld) [#/Vol] 4.08 10*6/uL 4.2-5.4 [facility] Blood hemoglobin measurement (mass/volume)on 11-30-2021 Hemoglobin (Bld) [Mass/Vol] 12.2 g/dL 12.0-15.0 [facility] Blood lymphocytes/100 leukoc yteson 11-30-2021 Lymphocytes/100 WBC (Bld) 36.8 % 19-41 [facility] Blood monocytes/100 leukocyt eson 11-30-2021 Monocytes/100 WBC (Bld) 7.8 % 0-10 [facility] Blood platelet mean volumeon 11-30-2021 Platelet mean volume (Bld) [Entitic vol] 8.9 fL 6.2-12.0 [facility] Determination of erythrocyte mean corpuscular volume (MCV)on 11-30-2021 MCV (RBC) [Entitic vol] 91.9 fL 81-99 [facility] Hematocrit Auto (Bld) [Volum e fraction]on 11-30-2021 Hematocrit (Bld) [Volume fraction] 37.5 % 37-47 [facility] Iron measurement (mass/mass) on 11-30-2021 Iron (Unsp spec) [Mass/Mass] 72 ug/dL 50-170 [facility] Laboratory - Chemistry and C hemistry - challengeon 11-30-2021 ALP [Catalytic activity/Vol] 59 U/L 45-117 [facility] ALT [Catalytic activity/Vol] 134 U/L 13-56 [facility] CO2 [Moles/Vol] 26.0 mmol/L 21.0-32.0 [facility] Globulin (S) [Mass/Vol] 4.0 g/dL 2.2-4.2 [facility] Magnesium [Mass/Vol] 2.1 mg/dL 1.6-2.6 [facility] T4 [Mass/Vol] 9.3 ug/dL 4.8-13.9 [facility] Urea nitrogen/Creatinine [Mass ratio] 21.4 mg/mg 10-20 [facility] Laboratory - Hematology and Cell countson 11-30-2021 Erythrocyte distribution width (RBC) [Entitic vol] 46.2 fL 35.1-43.9 [facility] Erythrocyte distribution width (RBC) [Ratio] 13.6 % 11.6-14.6 [facility] Immature granulocytes/100 WBC (Bld) 0.300 % 0.0-0.9 [facility] Comment on above: IG% - Immature Granu locytes (promyelocytes, myelocytes and metamyelocytes) > 1% indicates that a LEFT SHIFT is Present. MCH (RBC) [Entitic mass] 29.9 pg 27.0-32.0 [facility] Nucleated RBC/100 WBC (Bld) [Ratio] 0 % 0-5 [facility] MCHC Auto (RBC) [Mass/Vol]on 11-30-2021 MCHC (RBC) [Mass/Vol] 32.5 g/dL 32-36 [facility] No Panel Informationon 11-30 Estimated GFR (MDRD) Amer 106 mL/min >60 [facility] Comment on above: GFR Calc Estimated GFR (MDRD) Non-Af Amer 88 mL/min >60 [facility] Comment on above: Non- GFR Calc Miscellaneous Test See comment [facility] Comment on above: TEST RESULT LIMITSSe lenium, Serum/Plasma 150 ug/L 93 - 198A: This test was developed and its performance characteristics determined by [facility]. It has not been cleared or approved by the Food and DrugAdministration. TESTING PERFORMED AT [facility]. ORIGINAL REPORT ON FILE IN LAB CONTAINS ADDITIONAL TEST SITE INFORMATION. Thyroid Stimulating Hormone (TSH) 4.91 uIU/mL 0.358-3.74 [facility] Total Iron Binding Capacity 369 ug/dL 250-450 [facility] Total Triiodothyronine 0.99 ng/mL 0.6-1.81 [facility] Platelets bldon 11-30-2021 Platelets (Bld) [#/Vol] 318 10*3/uL 150-450 [facility] Serum or plasma albumin cherelle urement (mass/volume)on 11-30-2021 Albumin [Mass/Vol] 3.4 g/dL 3.2-5.0 [facility] Serum or plasma albumin/glob ulin mass ratioon 11-30-2021 Albumin/Globulin [Mass ratio] 0.8 {ratio} 0.9-2.4 [facility] Serum or plasma calcium cherelle urement (mass/volume)on 11-30-2021 Calcium [Mass/Vol] 9.1 mg/dL 8.5-10.1 [facility] Serum or plasma cholesterol in HDL measurement (mass/volume)on 11-30-2021 Cholesterol in HDL [Mass/Vol] 29 mg/dL >40 [facility] Comment on above: The drugs N-Acetylcy steine and Metamizole may falsely depress this assay. Reference Range HDL <40 mg/dL Low HDL Cholesterol HDL >or= 60 mg/dL High HDL Cholesterol Serum or plasma cholesterol in VLDL measurement (mass/volume)on 11-30-2021 Cholesterol in VLDL [Mass/Vol] 42 mg/dL 5-40 [facility] Serum or plasma creatinine m easurement (mass/volume)on 11-30-2021 Creatinine [Mass/Vol] 0.84 mg/dL 0.55-1.02 [facility] Comment on above: The validity of the calculated GFR & GFRAA in patients over 70 years has not been determined. Clinical correlation is essential. Serum or plasma ferritin bur[place] surement (mass/volume)on 11-30-2021 Ferritin [Mass/Vol] 237 ng/mL 8-252 [facility] Serum or plasma low density lipoprotein (LDL) cholesterol measurement (mass/volume)on 11-30-2021 Cholesterol in LDL [Mass/Vol] 119 mg/dL 0-130 [facility] Serum or plasma urea nitroge n measurement (mass/volume)on 11-30-2021 Urea nitrogen [Mass/Vol] 18 mg/dL 7-18 [facility] Serum or plasma zinc measure ment (mass/volume)on 11-30-2021 Zinc [Mass/Vol] 80 ug/dL 44-115 [facility] Comment on above: Detection Limit = 5P erformed at: - Lab[address] [id number] Director: Harsh Harris MD, Phone: [phone] Thin prep Papanicolaou smear with manual screeningon 11-30-2021 Thin prep Papanicolaou smear with manual screening 49 U/L 15-37 [facility] Thin prep Papanicolaou smear with manual screening 6 5-15 [facility] Thin prep Papanicolaou smear with manual screening 117 ug/dL 80-158 [facility] Comment on above: Detection Limit = 5 Absolute lymphocyte counton 09-27-2021 Lymphocytes Auto (Unsp spec) [#/Vol] 2.31 10*3/uL 0.83-4.51 [facility] Work Phone: Basophil percentageon 2021 Basophils/100 WBC (Bld) 0.6 % 0-1 [facility] Work Phone: Bilirubin [Mass/Vol] 0.40 mg/dL 0.20-1.00 [facility] Work Phone: Comment on above: For patients on eltr ombopag therapy, use of Dimension [place] TBIL is not recommended. Eosinophils/100 WBC (Bld) 1.7 % 0-5 [facility] Work Phone: Neutrophils (Bld) [#/Vol] 3.5 10*3/uL 2.0-7.7 [facility] Work Phone: Neutrophils/100 WBC (Bld) 54.1 % 47-70 [facility] Work Phone: Protein [Mass/Vol] 7.1 g/dL 6.4-8.2 [facility] Work Phone: WBC (Bld) [#/Vol] 6.4 10*3/uL 4.4-11.0 [facility] Work Phone: Blood erythrocytes count (nu mber/volume)on 09-27-2021 RBC (Bld) [#/Vol] 4.16 10*6/uL 4.2-5.4 [facility] Work Phone: Blood hemoglobin measurement (mass/volume)on 09-27-2021 Hemoglobin (Bld) [Mass/Vol] 12.4 g/dL 12.0-15.0 [facility] Work Phone: Blood lymphocytes/100 leukoc yteson 09-27-2021 Lymphocytes/100 WBC (Bld) 36.1 % 19-41 [facility] Work Phone: Blood monocytes/100 leukocyt eson 09-27-2021 Monocytes/100 WBC (Bld) 7.2 % 0-10 [facility] Work Phone: Blood platelet mean volumeon 09-27-2021 Platelet mean volume (Bld) [Entitic vol] 9.6 fL 6.2-12.0 [facility] Work Phone: Determination of erythrocyte mean corpuscular volume (MCV)on 09-27-2021 MCV (RBC) [Entitic vol] 88.0 fL 81-99 [facility] Work Phone: Direct bilirubinon 2 Bilirubin.direct [Mass/Vol] 0.11 mg/dL 0.00-0.30 [facility] Work Phone: Hematocrit Auto (Bld) [Volum e fraction]on 09-27-2021 Hematocrit (Bld) [Volume fraction] 36.6 % 37-47 [facility] Work Phone: Iron measurement (mass/mass) on 09-27-2021 Iron (Unsp spec) [Mass/Mass] 84 ug/dL 50-170 [facility] Work Phone: Laboratory - Chemistry and C hemistry - challengeon 09-27-2021 ALP [Catalytic activity/Vol] 56 U/L 45-117 [facility] Work Phone: ALT [Catalytic activity/Vol] 149 U/L 13-56 [facility] Work Phone: Globulin (S) [Mass/Vol] 3.8 g/dL 2.2-4.2 [facility] Work Phone: Laboratory - Hematology and Cell countson 09-27-2021 Erythrocyte distribution width (RBC) [Entitic vol] 45.2 fL 35.1-43.9 [facility] Work Phone: Erythrocyte distribution width (RBC) [Ratio] 14.0 % 11.6-14.6 [facility] Work Phone: Immature granulocytes/100 WBC (Bld) 0.300 % 0.0-0.9 [facility] Work Phone: Comment on above: IG% - Immature Granu locytes (promyelocytes, myelocytes and metamyelocytes) > 1% indicates that a LEFT SHIFT is Present. MCH (RBC) [Entitic mass] 29.8 pg 27.0-32.0 [facility] Work Phone: Nucleated RBC/100 WBC (Bld) [Ratio] 0 % 0-5 [facility] Work Phone: MCHC Auto (RBC) [Mass/Vol]on 09-27-2021 MCHC (RBC) [Mass/Vol] 33.9 g/dL 32-36 [facility] Work Phone: No Panel Informationon 09-27 Total Iron Binding Capacity 352 ug/dL 250-450 [facility] Work Phone: Platelets bldon 09-27-2021 Platelets (Bld) [#/Vol] 336 10*3/uL 150-450 [facility] Work Phone: Serum or plasma albumin cherelle urement (mass/volume)on 09-27-2021 Albumin [Mass/Vol] 3.3 g/dL 3.2-5.0 [facility] Work Phone: Thin prep Papanicolaou smear with manual screeningon 09-27-2021 Thin prep Papanicolaou smear with manual screening 54 U/L 15-37 [facility] Work Phone: Absolute lymphocyte counton 09-10-2021 Lymphocytes Auto (Unsp spec) [#/Vol] 3.23 10*3/uL 0.83-4.51 [facility] Work Phone: Basophil percentageon 2021 Basophils/100 WBC (Bld) 0.4 % 0-1 [facility] Work Phone: [phone] Chloride [Moles/Vol] 111 mmol/L 98-107 [facility]: Eosinophils/100 WBC (Bld) 2.3 % 0-5 [facility] Work Phone: Glucose [Mass/Vol] 119 mg/dL 74-106 [facility] Work Phone: Comment on above: Fasting Glucose resu lt from 100 to 125 mg/dL suggests IMPAIRED HOMEOSTASIS per A.D.A. criteria. Neutrophils (Bld) [#/Vol] 4.1 10*3/uL 2.0-7.7 [facility] Work Phone: [phone] Neutrophils/100 WBC (Bld) 50.0 % 47-70 [facility] Work Phone: Potassium [Moles/Vol] 3.9 mmol/L 3.5-5.1 [facility] Work Phone: Sodium [Moles/Vol] 145 mmol/L 136-[facility]: [phone] WBC (Bld) [#/Vol] 8.2 10*3/uL 4.4-11.0 [facility] Work Phone: [phone] Beta hCG serum qualon 2021 Beta HCG ( test) Ql Negative [facility] Work Phone: Blood erythrocytes count (nu mber/volume)on 09-10-2021 RBC (Bld) [#/Vol] 4.39 10*6/uL 4.2-5.4 [facility]: Blood hemoglobin measurement (mass/volume)on 09-10-2021 Hemoglobin (Bld) [Mass/Vol] 12.9 g/dL 12.0-15.0 [facility] Work Phone: Blood lymphocytes/100 leukoc yteson 09-10-2021 Lymphocytes/100 WBC (Bld) 39.3 % 19-41 [facility] Work Phone: Blood monocytes/100 leukocyt eson 09-10-2021 Monocytes/100 WBC (Bld) 7.6 % 0-10 [facility] Work Phone: Blood platelet mean volumeon 09-10-2021 Platelet mean volume (Bld) [Entitic vol] 9.4 fL 6.2-12.0 [facility] Work Phone: Determination of erythrocyte mean corpuscular volume (MCV)on 09-10-2021 MCV (RBC) [Entitic vol] 89.1 fL 81-99 [facility] Work Phone: Hematocrit Auto (Bld) [Volum e fraction]on 09-10-2021 Hematocrit (Bld) [Volume fraction] 39.1 % 37-47 [facility] Work Phone: [phone] Laboratory - Chemistry and C hemistry - challengeon 09-10-2021 CO2 [Moles/Vol] 28.0 mmol/L 21.0-32.0 [facility] Work Phone: Urea nitrogen/Creatinine [Mass ratio] 20.2 mg/mg 10-20 [facility] Work Phone: Laboratory - Drug toxicology on 09-10-2021 Amphetamines Ql (U) Negative <1000 ng/mL [facility] Work [facility]: Benzodiazepines Ql (U) Negative < 200 ng/mL [facility] Work Phone: Cannabinoids Screen Ql (U) Negative < 50 ng/mL [facility] Work Phone: Cocaine Ql (U) Negative < 300 ng/mL [facility] Work Phone: Opiates Ql (U) Negative < 300 ng/mL [facility] Work Phone: Laboratory - Hematology and Cell countson 09-10-2021 Erythrocyte distribution width (RBC) [Entitic vol] 44.7 fL 35.1-43.9 [facility] Work Phone: Erythrocyte distribution width (RBC) [Ratio] 13.8 % 11.6-14.6 [facility] Work Phone: Immature granulocytes/100 WBC (Bld) 0.400 % 0.0-0.9 [facility] Work Phone: Comment on above: IG% - Immature Granu locytes (promyelocytes, myelocytes and metamyelocytes) > 1% indicates that a LEFT SHIFT is Present. MCH (RBC) [Entitic mass] 29.4 pg 27.0-32.0 [facility] Work Phone: Nucleated RBC/100 WBC (Bld) [Ratio] 0 % 0-5 [facility] Work Phone: MCHC Auto (RBC) [Mass/Vol]on 09-10-2021 MCHC (RBC) [Mass/Vol] 33.0 g/dL 32-36 [facility] Work Phone: No Panel Informationon 09-10 Ethyl Alcohol Level < 3.0 mg/dL [facility] Work Phone: Comment on above: The serum:whole bloo d ethanol ratio is approximately 1.14and varies slightly with hematocrit. Medical Alcohol reference interval and critical value innon-tolerant individuals; 50 - 100 Impairment 100 Intoxication 100 - 250 Severe Poisoning 250 - 400 Deep/possible fatal coma Estimated Creatinine Clearance Calc 131.81 ml/min [facility] Work Phone: Estimated GFR (MDRD) Amer 144 mL/min >60 [facility] Work Phone: Comment on above: GFR Calc Estimated GFR (MDRD) Non-Af Amer 119 mL/min >60 [facility] Work Phone: Comment on above: Non- GFR Calc MDMA (Ecstasy) Screen Negative < 500 ng/mL [facility] Work Phone: Urine Barbiturates Screen Negative < 200 ng/mL [facility] Work Phone: Urine Drug Screen Comment [facility] Work Phone: Comment on above: [...] Methadone Screen Negative < 300 ng/mL [facility] Work Phone: Platelets bldon 09-10-2021 Platelets (Bld) [#/Vol] 311 10*3/uL 150-450 [facility] Work Phone: Serum or plasma calcium cherelle urement (mass/volume)on 07-23-2022 Calcium [Mass/Vol] 9.0 mg/dL 8.5-10.1 [facility] Work Phone: Serum or plasma creatinine m easurement (mass/volume)on 09-10-2021 Creatinine [Mass/Vol] 0.64 mg/dL 0.55-1.02 [facility] Work Phone: Comment on above: The validity of the calculated GFR & GFRAA in patients over 70 years has not been determined. Clinical correlation is essential. Serum or plasma urea nitroge n measurement (mass/volume)on 09-10-2021 Urea nitrogen [Mass/Vol] 13 mg/dL 7-18 [facility] Work Phone: Thin prep Papanicolaou smear with manual screeningon 09-10-2021 Thin prep Papanicolaou smear with manual screening 6 5-15 [facility] Work Phone: Urine phencyclidine (PCP) de tectionon 09-10-2021 Phencyclidine Ql (U) Negative < 25 ng/mL [facility] Work Phone: Absolute lymphocyte counton 09-03-2021 Lymphocytes Auto (Unsp spec) [#/Vol] 1.63 10*3/uL 0.83-4.51 [facility] Work Phone: Basophil percentageon 2021 Basophil percentage 0-5 SEEN /hpf 0-5 [facility] Work Phone: Basophils/100 WBC (Bld) 0.6 % 0-1 [facility] Work Phone: Bilirubin [Mass/Vol] 0.60 mg/dL 0.20-1.00 [facility] Work Phone: Comment on above: For patients on eltr ombopag therapy, use of Dimension [place] TBIL is not recommended. Chloride [Moles/Vol] 110 mmol/L 98-107 [facility] Work Phone: Eosinophils/100 WBC (Bld) 0.9 % 0-5 [facility] Work Phone: Glucose [Mass/Vol] 104 mg/dL 74-106 [facility] Work Phone: Comment on above: Fasting Glucose resu lt from 100 to 125 mg/dL suggests IMPAIRED HOMEOSTASIS per A.D.A. criteria. Neutrophils (Bld) [#/Vol] 4.3 10*3/uL 2.0-7.7 [facility] Work Phone: [phone] Neutrophils/100 WBC (Bld) 63.1 % 47-70 [facility] Work Phone: Potassium [Moles/Vol] 4.3 mmol/L 3.5-5.1 [facility] Work Phone: Protein [Mass/Vol] 7.2 g/dL 6.4-8.2 [facility] Work Phone: Sodium [Moles/Vol] 138 mmol/L 136-145 [facility] Work Phone: WBC (Bld) [#/Vol] 6.8 10*3/uL 4.4-11.0 [facility] Work Phone: Beta hCG serum qualon 2021 Beta HCG ( test) Ql Negative [facility] Work Phone: Bilirubin Test strip Ql (U)o n 09-03-2021 Bilirubin Ql (U) Negative Negative [facility] Work Phone: Blood erythrocytes count (nu mber/volume)on 09-03-2021 RBC (Bld) [#/Vol] 4.39 10*6/uL 4.2-5.4 [facility] Work Phone: Blood hemoglobin measurement (mass/volume)on 09-03-2021 Hemoglobin (Bld) [Mass/Vol] 12.7 g/dL 12.0-15.0 [facility] Work Phone: Blood lymphocytes/100 leukoc yteson 09-03-2021 Lymphocytes/100 WBC (Bld) 24.0 % 19-41 [facility] Work Phone: Blood monocytes/100 leukocyt eson 09-03-2021 Monocytes/100 WBC (Bld) 10.8 % 0-10 [facility] Work Phone: Blood platelet mean volumeon 09-03-2021 Platelet mean volume (Bld) [Entitic vol] 9.4 fL 6.2-12.0 [facility] Work Phone: Determination of erythrocyte mean corpuscular volume (MCV)on 09-03-2021 MCV (RBC) [Entitic vol] 89.3 fL 81-99 [facility] Work Phone: Hematocrit Auto (Bld) [Volum e fraction]on 09-03-2021 Hematocrit (Bld) [Volume fraction] 39.2 % 37-47 [facility] Work Phone: Ketones Test strip Ql (U)on 09-03-2021 Ketones Ql (U) Negative Negative [facility] Work Phone: Laboratory - Chemistry and C hemistry - challengeon 09-03-2021 ALP [Catalytic activity/Vol] 56 U/L 45-117 [facility] Work Phone: ALT [Catalytic activity/Vol] 149 U/L 13-56 [facility] Work Phone: CO2 [Moles/Vol] 25.0 mmol/L 21.0-32.0 [facility] Work Phone: Globulin (S) [Mass/Vol] 3.7 g/dL 2.2-4.2 [facility] Work Phone: Lipase [Catalytic activity/Vol] 144 U/L 73-393 [facility] Work Phone: Urea nitrogen/Creatinine [Mass ratio] 14.3 mg/mg 10-20 [facility] Work Phone: Laboratory - Hematology and Cell countson 09-03-2021 Erythrocyte distribution width (RBC) [Entitic vol] 44.6 fL 35.1-43.9 [facility] Work Phone: Erythrocyte distribution width (RBC) [Ratio] 13.5 % 11.6-14.6 [facility] Work Phone: Immature granulocytes/100 WBC (Bld) 0.600 % 0.0-0.9 [facility] Work Phone: Comment on above: IG% - Immature Granu locytes (promyelocytes, myelocytes and metamyelocytes) > 1% indicates that a LEFT SHIFT is Present. MCH (RBC) [Entitic mass] 28.9 pg 27.0-32.0 [facility] Work Phone: Nucleated RBC/100 WBC (Bld) [Ratio] 0 % 0-5 [facility] Work Phone: MCHC Auto (RBC) [Mass/Vol]on 09-03-2021 MCHC (RBC) [Mass/Vol] 32.4 g/dL 32-36 [facility] Work Phone: Mucus LM Ql (Urine sed)on Mucus Ql (Urine sed) 0 SEEN /hpf [facility] Work Phone: Nitrite Test strip Ql (U)on 09-03-2021 Nitrite Ql (U) Negative Negative [facility] Work Phone: No Panel Informationon 09-03 Estimated Creatinine Clearance Calc 75.32 ml/min [facility] Work Phone: Estimated GFR (MDRD) Amer 76 mL/min >60 [facility] Work Phone: Comment on above: GFR Calc Estimated GFR (MDRD) Non-Af Amer 63 mL/min >60 [facility] Work Phone: Comment on above: Non- GFR Calc Platelets bldon 09-03-2021 Platelets (Bld) [#/Vol] 300 10*3/uL 150-450 [facility] Work Phone: Protein Test strip Ql (U)on 09-03-2021 Protein Ql (U) 30 mg/dl Negative [facility] Work Phone: Serum or plasma albumin cherelle urement (mass/volume)on 09-03-2021 Albumin [Mass/Vol] 3.5 g/dL 3.2-5.0 [facility] Work Phone: Serum or plasma albumin/glob ulin mass ratioon 09-03-2021 Albumin/Globulin [Mass ratio] 0.9 {ratio} 0.9-2.4 [facility] Work Phone: Serum or plasma calcium cherelle urement (mass/volume)on 09-03-2021 Calcium [Mass/Vol] 9.1 mg/dL 8.5-10.1 [facility] Work Phone: Serum or plasma creatinine m easurement (mass/volume)on 09-03-2021 Creatinine [Mass/Vol] 1.12 mg/dL 0.55-1.02 [facility] Work Phone: Comment on above: The validity of the calculated GFR & GFRAA in patients over 70 years has not been determined. Clinical correlation is essential. Serum or plasma urea nitroge n measurement (mass/volume)on 09-03-2021 Urea nitrogen [Mass/Vol] 16 mg/dL 7-18 [facility] Work Phone: Squamous epithelial cells de tection in urine sediment by light microscopyon 09-03-2021 Epithelial cells.squamous LM Ql (Urine sed) 5-10 SEEN /hpf 5-10 [facility] Work Phone: Thin prep Papanicolaou smear with manual screeningon 09-03-2021 Thin prep Papanicolaou smear with manual screening 55 U/L 15-37 [facility] Work Phone: Thin prep Papanicolaou smear with manual screening 3 5-15 [facility] Work Phone: Urine blood detectionon 08-19 RBC Ql (U) Negative Negative [facility] Work Phone: RBC Ql (U) 0 SEEN /hpf 0-5 [facility] Work Phone: Urine clarityon 09-03-2021 Clarity (U) Cloudy Clear [facility] Work Phone: Urine color determinationon 09-03-2021 Color (U) Yellow Yellow [facility] Work Phone: Urine glucose detectionon Glucose Ql (U) Normal mg/dl Normal [facility] Work Phone: Urine leukocyte esterase det ection by dipstickon 09-03-2021 Leukocyte esterase Test strip Ql (U) 100 /ul Negative [facility] Work Phone: Urine pHon 09-03-2021 pH (U) 5.0 [pH] 5.0 - 8.0 [facility] Work Phone: Urine sediment bacteria coun t by microscopy (number/high power field)on 09-03-2021 Bacteria LM.HPF (Urine sed) [#/Area] 1 /[HPF] None Seen [facility] Work Phone: Urine specific gravity measu rementon 09-03-2021 Specific gravity (U) [Rel density] 1.020 1.002-1.030 [facility] Work Phone: Urobilinogen Auto test strip Ql (U)on 09-03-2021 Urobilinogen Ql (U) Normal mg/dl Normal [facility] Work Phone: Basophil percentageon 2021 Bilirubin [Mass/Vol] 0.50 mg/dL 0.20-1.00 [facility] Work Phone: Comment on above: For patients on eltr ombopag therapy, use of Dimension [place] TBIL is not recommended. Chloride [Moles/Vol] 109 mmol/L 98-107 [facility] Work Phone: Cholesterol [Mass/Vol] 212 mg/dL <200 [facility] Work Phone: Comment on above: <200 mg/dL Desirable 200-240 mg/dL Borderline >240 mg/dL High Risk Glucose [Mass/Vol] 84 mg/dL 74-106 [facility] Work Phone: Potassium [Moles/Vol] 4.2 mmol/L 3.5-5.1 [facility] Work Phone: Protein [Mass/Vol] 7.4 g/dL 6.4-8.2 [facility] Work Phone: Sodium [Moles/Vol] 140 mmol/L 136-145 [facility] Work Phone: Triglyceride [Mass/Vol] 219 mg/dL <199 [facility] Work Phone: Comment on above: The drugs N-Acetylcy steine and Metamizole may falsely depress this assay.Serum Triglycerides Reference Interval Normal <150 mg/dL Borderline high 150 - 199 mg/dL High 200 - 499 mg/dL Very High > or = 500 mg/dL Laboratory - Chemistry and C hemistry - challengeon 08-31-2021 ALP [Catalytic activity/Vol] 59 U/L 45-117 [facility] Work Phone: ALT [Catalytic activity/Vol] 197 U/L 13-56 [facility] Work Phone: CO2 [Moles/Vol] 25.0 mmol/L 21.0-32.0 [facility] Work Phone: Globulin (S) [Mass/Vol] 3.8 g/dL 2.2-4.2 [facility] Work Phone: Urea nitrogen/Creatinine [Mass ratio] 22.3 mg/mg 10-20 [facility] Work Phone: No Panel Informationon 08-31 Estimated GFR (MDRD) Amer 119 mL/min >60 [facility] Work Phone: Comment on above: GFR Calc Estimated GFR (MDRD) Non-Af Amer 98 mL/min >60 [facility] Work Phone: Comment on above: Non- GFR Calc Serum or plasma albumin cherelle urement (mass/volume)on 08-31-2021 Albumin [Mass/Vol] 3.6 g/dL 3.2-5.0 [facility] Work Phone: Serum or plasma albumin/glob ulin mass ratioon 08-31-2021 Albumin/Globulin [Mass ratio] 0.9 {ratio} 0.9-2.4 [facility] Work Phone: Serum or plasma calcium cherelle urement (mass/volume)on 08-31-2021 Calcium [Mass/Vol] 9.1 mg/dL 8.5-10.1 [facility] Work Phone: Serum or plasma cholesterol in HDL measurement (mass/volume)on 08-31-2021 Cholesterol in HDL [Mass/Vol] 30 mg/dL >40 [facility] Work Phone: Comment on above: The drugs N-Acetylcy steine and Metamizole may falsely depress this assay. Reference Range HDL <40 mg/dL Low HDL Cholesterol HDL >or= 60 mg/dL High HDL Cholesterol Serum or plasma cholesterol in VLDL measurement (mass/volume)on 08-31-2021 Cholesterol in VLDL [Mass/Vol] 44 mg/dL 5-40 [facility] Work Phone: Serum or plasma creatinine m easurement (mass/volume)on 08-31-2021 Creatinine [Mass/Vol] 0.76 mg/dL 0.55-1.02 [facility] Work Phone: Comment on above: The validity of the calculated GFR & GFRAA in patients over 70 years has not been determined. Clinical correlation is essential. Serum or plasma low density lipoprotein (LDL) cholesterol measurement (mass/volume)on 08-31-2021 Cholesterol in LDL [Mass/Vol] 138 mg/dL 0-130 [facility] Work Phone: Serum or plasma urea nitroge n measurement (mass/volume)on 08-31-2021 Urea nitrogen [Mass/Vol] 17 mg/dL 7-18 [facility] Work Phone: Thin prep Papanicolaou smear with manual screeningon 08-31-2021 Thin prep Papanicolaou smear with manual screening 98 U/L 15-37 [facility] Work Phone: Thin prep Papanicolaou smear with manual screening 6 5-15 [facility] Work Phone: Basophil percentageon 2021 Basophil percentage 3.8 mg/dL 2.5-4.9 [facility] Work Phone: Chloride [Moles/Vol] 108 mmol/L 98-[address] [facility] [address] [facility] Work Phone: Glucose [Mass/Vol] 112 mg/dL 74-106 [facility] Work Phone: Comment on above: Fasting Glucose resu lt from 100 to 125 mg/dL suggests IMPAIRED HOMEOSTASIS per A.D.A. criteria. Potassium [Moles/Vol] 4.2 mmol/L 3.5-5.1 [facility] Work Phone: Sodium [Moles/Vol] 139 mmol/L 136-145 [facility] Work Phone: Laboratory - Chemistry and C hemistry - challengeon 08-24-2021 CO2 [Moles/Vol] 29.0 mmol/L 21.0-32.0 [facility] Work Phone: Urea nitrogen/Creatinine [Mass ratio] 17.5 mg/mg 10-20 [facility] Work Phone: No Panel Informationon 08-24 Estimated GFR (MDRD) Amer 148 mL/min >60 [facility] Work Phone: Comment on above: GFR Calc Estimated GFR (MDRD) Non-Af Amer 123 mL/min >60 [facility] Work Phone: Comment on above: Non- GFR Calc Tenkiller Level 0.60 mmol/L 0.60-1.20 [facility] Work Phone: Thyroid Stimulating Hormone (TSH) 2.96 uIU/mL 0.358-3.74 [facility] Work Phone: Serum or plasma albumin cherelle urement (mass/volume)on 08-24-2021 Albumin [Mass/Vol] 3.4 g/dL 3.2-5.0 [facility] Work Phone: Serum or plasma calcium cherelle urement (mass/volume)on 08-24-2021 Calcium [Mass/Vol] 9.2 mg/dL 8.5-10.1 [facility] Work Phone: Serum or plasma creatinine m easurement (mass/volume)on 08-24-2021 Creatinine [Mass/Vol] 0.63 mg/dL 0.55-1.02 [facility] Work Phone: Comment on above: The validity of the calculated GFR & GFRAA in patients over 70 years has not been determined. Clinical correlation is essential. Serum or plasma urea nitroge n measurement (mass/volume)on 08-24-2021 Urea nitrogen [Mass/Vol] 11 mg/dL 7-18 [facility] Work Phone: Basophil percentageon 2021 Chloride [Moles/Vol] 112 mmol/L 98-107 [facility] Work Phone: Glucose [Mass/Vol] 100 mg/dL 74-106 [facility] Work Phone: Comment on above: Fasting Glucose resu lt from 100 to 125 mg/dL suggests IMPAIRED HOMEOSTASIS per A.D.A. criteria. Potassium [Moles/Vol] 4.1 mmol/L 3.5-5.1 [facility] Work Phone: Sodium [Moles/Vol] 140 mmol/L 136-145 [facility] Work Phone: WBC (Bld) [#/Vol] 6.6 10*3/uL 4.4-11.0 [facility] Work Phone: Blood erythrocytes count (nu mber/volume)on 06-27-2021 RBC (Bld) [#/Vol] 4.42 10*6/uL 4.2-5.4 [facility] Work Phone: Blood hemoglobin measurement (mass/volume)on 06-27-2021 Hemoglobin (Bld) [Mass/Vol] 12.7 g/dL 12.0-15.0 [facility] Work Phone: Blood platelet mean volumeon 06-27-2021 Platelet mean volume (Bld) [Entitic vol] 9.4 fL 6.2-12.0 [facility] Work Phone: Determination of erythrocyte mean corpuscular volume (MCV)on 06-27-2021 MCV (RBC) [Entitic vol] 87.3 fL 81-99 [facility] Work Phone: Hematocrit Auto (Bld) [Volum e fraction]on 06-27-2021 Hematocrit (Bld) [Volume fraction] 38.6 % 37-47 [facility] Work Phone: Iron measurement (mass/mass) on 06-27-2021 Iron (Unsp spec) [Mass/Mass] 50 ug/dL 50-170 [facility] Work Phone: Laboratory - Chemistry and C hemistry - challengeon 06-27-2021 CO2 [Moles/Vol] 23.0 mmol/L 21.0-32.0 [facility] Work Phone: Urea nitrogen/Creatinine [Mass ratio] 18.4 mg/mg 10-20 [facility] Work Phone: Laboratory - Hematology and Cell countson 06-27-2021 Erythrocyte distribution width (RBC) [Entitic vol] 45.0 fL 35.1-43.9 [facility] Work Phone: Erythrocyte distribution width (RBC) [Ratio] 14.0 % 11.6-14.6 [facility] Work Phone: MCH (RBC) [Entitic mass] 28.7 pg 27.0-32.0 [facility] Work Phone: MCHC Auto (RBC) [Mass/Vol]on 06-27-2021 MCHC (RBC) [Mass/Vol] 32.9 g/dL 32-36 [facility]: No Panel Informationon 06-27 Estimated GFR (MDRD) Amer 176 mL/min >60 [facility] Work Phone: Comment on above: GFR Calc Estimated GFR (MDRD) Non-Af Amer 145 mL/min >60 [facility] Work Phone: Comment on above: Non- GFR Calc Total Iron Binding Capacity 374 ug/dL 250-450 [facility] Work Phone: Platelets bldon 06-27-2021 Platelets (Bld) [#/Vol] 273 10*3/uL 150-450 [facility] Work Phone: Serum or plasma calcium cherelle urement (mass/volume)on 06-27-2021 Calcium [Mass/Vol] 8.7 mg/dL 8.5-10.1 [facility] Work Phone: Serum or plasma creatinine m easurement (mass/volume)on 06-27-2021 Creatinine [Mass/Vol] 0.54 mg/dL 0.55-1.02 [facility] Work Phone: Comment on above: The validity of the calculated GFR & GFRAA in patients over 70 years has not been determined. Clinical correlation is essential. Serum or plasma urea nitroge n measurement (mass/volume)on 06-27-2021 Urea nitrogen [Mass/Vol] 10 mg/dL 7-18 [facility] Work Phone: Thin prep Papanicolaou smear with manual screeningon 06-27-2021 Thin prep Papanicolaou smear with manual screening 5 5-15 [facility] Work Phone: MRI Brain w/oon [...] by MARY CORDOVA on 02/15/2021 1547 Normal [facility] LABORATORYOrdered By: Sandra Spain on 12-14-2020 [...] No radiographic evidence of acute osseous injury. Angle Roll Operator: ELLYN Transcribe Date/Time: Jan 07 2020 9:27A Dictated by : ROBB JULES MD This examination was interpreted and the report reviewed and electronically signed by: ROBB JULES MD on Jan 07 2020 9:29AM EST DIVISION OF RADIOLOGY Radiology Study observation (narrative) [facility] No Panel InformationOrdered By: [facility] Provider on 01-07-2020 [facility] XR Ankle - left AP and Later [...] DIVISION OF RADIOLOGY Provider, [facility] - 01/07/2020 * * *Final Report* [...] No radiographic evidence of acute osseous injury. Angle Roll Operator: ELLYN Transcribe Date/Time: Jan 07 2020 9:27A Dictated by : ROBB JULES MD This examination was interpreted and the report reviewed and electronically signed by: ROBB JULES MD on Jan 07 2020 9:29AM EST [facility] XR Foot - left AP and Latera [...] Joint spaces preserved. DIVISION OF RADIOLOGY [facility] [...] No radiographic evidence of acute osseous injury. Angle Roll Operator: MATTHIEUB Transcribe Date/Time: Jan 07 2020 9:27A Dictated by : ROBB JULES MD This examination was interpreted and the report reviewed and electronically signed by: ROBB JULES MD on Jan 07 2020 9:29AM EST [facility] Progress Noteon 01-31-2017 [employer] Interface Message Text SUBJECTIVE: Marion Gutierrez [...] 14, 2016. [facility]. At that time she was diagnosed [...] medication and then placed on Abilify and Tenkiller at this lastadmission. I did review the [...] may recall Marion's mother had noted dark native around her neck, axilla,and cleavage area for [...] right ankle [facility]ism Depression hosp at 10[facility] prior to Dx w/autism spectrum [...] the 01/31/17 encounter (OfficeVisit) [facility]uga[facility] ARIPiprazole (ABILIFY) 10 [...] active.5. Need to transition to adult either [employer], sample wrapper, or family provider.6. Obtain CeoB7hH total of 25 minutes was spent during the visit today with more than 50% oftotal time spent in face to face counseling and/or coordination of care. Normal [facility] Progress Noteon 09-18-2016 [employer] Interface Message Text CHIEF COMPLAINT: Shoulder [...] right ankle [facility]ism Depression hosp at 10y [facility] prior to Dx w/autism spectrum [...] present illness or past medical history. Normal [facility] [employer] Interface Message Text PHYSICIAN STATEMENT:This patient [...] In addition she is scheduled tosee an student accounts coordinator because of some unusual mobility in one of the eyes.There are many factors there probably contributing to her generalized pain inthe shoulders and knees and hopefully we can work these out without furtherextensive workup. Normal [facility] Ova and parasites Ova and parasites identified LM Nom (Unsp spec) [facility] Work Phone: Stool lactoferrin detection by immunoassay Lactoferrin IA Ql (Stl) [facility] [facility] Work Phone: Vital Signs Date Time Vital Sign Value Performing Clinician Facility 12-09-2024 08:38-0400 Body height 167.64 cm Zebulun Beam [employer] Work Phone: [facility] 12-09-2024 08:27-0400 Body mass index (BMI) [Ratio] 46.9 kg/m2 Zebulun Beam [employer] Work Phone: 1(528)310-426567 [place] [address] 12-09-2024 08:27-0400 Body weight 131.79 kg Zebulun Beam [employer] Work Phone: 1(344)499-125967 [place] [address] 12-09-2024 08:27-0400 Diastolic blood pressure 83 mm[Hg] Zebulun Beam [employer] Work Phone: 2(751)955-395667 [place] [address] 12-09-2024 08:27-0400 Systolic blood pressure 135 mm[Hg] Zebulun Beam [employer] Work Phone: 0(700)114-105167 [place] [address] 11-28-2024 13:27-0400 Diastolic blood pressure 79 mm[Hg] Zebulun Beam [employer] Work Phone: 4(361)066-443167 [place] [address] 11-28-2024 13:27-0400 SaO2% (BldA) [Mass fraction] 98 % Zebulun Beam [employer] Work Phone: 8(853)948-327767 [place] [address] 11-28-2024 13:27-0400 Systolic blood pressure 123 mm[Hg] Zebulun Beam [employer] Work Phone: 5(408)972-776467 [place] [address] 11-28-2024 07:44-0400 Body mass index (BMI) [Ratio] 47.2 kg/m2 Zebulun Beam [employer] Work Phone: 9(491)780-082367 [place] [address] 11-28-2024 07:44-0400 Body weight 132.9 kg Zebulun Beam [employer] Work Phone: 0(909)218-778067 [place] [address] 11-28-2024 07:44-0400 Heart rate 47 /min Zebulun Beam [employer] Work Phone: 5(654)405-457167 [place] [address] 11-28-2024 07:44-0400 Respiratory rate 18 /min Zebulun Beam [employer] Work Phone: 6(943)777-620367 [place] [address] 11-18-2024 18:13-0400 Body temperature 98.5 [degF] Zebulun Beam [employer] Work Phone: 2(389)520-803567 [place] [address] 11-18-2024 18:13-0400 Diastolic blood pressure 71 mm[Hg] Zebulun Beam [employer] Work Phone: 6(608)394-333567 [place] [address] 11-18-2024 18:13-0400 Heart rate 65 /min Zebulun Beam [employer] Work Phone: 6(464)048-948967 [place] [address] 11-18-2024 18:13-0400 Respiratory rate 16 /min Zebulun Beam [employer] Work Phone: 8(973)778-539867 [place] [address] 11-18-2024 18:13-0400 SaO2% (BldA) [Mass fraction] 97 % Zebulun Beam [employer] Work Phone: 8(953)461-787467 [place] [address] 11-18-2024 18:13-0400 Systolic blood pressure 153 mm[Hg] Zebulun Beam [employer] Work Phone: 2(017)807-499267 [place] [address] 11-18-2024 15:23-0400 Body height 167.64 cm Zebulun Beam [employer] Work Phone: 2(663)341-721567 [place] [address] 11-18-2024 15:23-0400 Body mass index (BMI) [Ratio] 48.2 kg/m2 Zebulun Beam [employer] Work Phone: 2(797)707-652467 [place] [address] 11-18-2024 15:23-0400 Body weight 135.4 kg Zebulun Beam [employer] Work Phone: 5(382)078-805867 [place] [address] 10-27-2024 11:30-0400 Body temperature 99.6 [degF] Naina Da Silva [employer] Work Phone: 5(684)638-528867 [place] [address] 10-27-2024 11:30-0400 Diastolic blood pressure 88 mm[Hg] Naina Da Silva [employer] Work Phone: 0(692)347-131067 [place] [address] 10-27-2024 11:30-0400 Heart rate 74 /min Naina Da Silva [employer] Work Phone: 0(112)886-744667 [place] [address] 10-27-2024 11:30-0400 Respiratory rate 16 /min Naina Da Silva [employer] Work Phone: 3(608)418-187067 [place] [address] 10-27-2024 11:30-0400 SaO2% (BldA) [Mass fraction] 100 % Naina Da Silva [employer] Work Phone: [facility] 10-27-2024 11:30-0400 Systolic blood pressure 139 mm[Hg] Naina Da Silva [employer] Work Phone: [facility] 10-27-2024 10:07-0400 Body height 167.64 cm Naina Da Silva [employer] Work Phone: [facility] 10-27-2024 10:07-0400 Body mass index (BMI) [Ratio] 46.2 kg/m2 Naina Da Silva [employer] Work Phone: [facility] 10-27-2024 10:07-0400 Body weight 130 kg Naina Da Silva [employer] Work Phone: [facility] 10-16-2024 10:26-0400 Body mass index (BMI) [Ratio] 45.55 kg/m2 Jey Johnson MD Work Phone: [facility] 10-16-2024 10:26-0400 Body temperature 98.01 [degF] Jey Johnson MD Work Phone: [facility] 10-16-2024 10:26-0400 Body weight 131.91 kg Jey Johnson MD Work Phone: [facility] 10-16-2024 10:26-0400 Diastolic blood pressure 84 mm[Hg] Jey Johnson MD Work Phone: [facility] 10-16-2024 10:26-0400 Heart rate 78 /min Jey Johnson MD Work Phone: [facility] 10-16-2024 10:26-0400 Respiratory rate 22 /min Jey Johnson MD Work Phone: [facility] 10-16-2024 10:26-0400 SaO2% (BldA) [Mass fraction] 98 % Jey Johnson MD Work Phone: [facility] 10-16-2024 10:26-0400 Systolic blood pressure 120 mm[Hg] Jey Johnson MD Work Phone: [facility] 09-27-2024 20:42-0400 Body temperature 96.2 [degF] Zebulun Beam [employer] Work Phone: 7(824)358-019614 [place] [address] 09-27-2024 20:42-0400 Diastolic blood pressure 95 mm[Hg] Zebulun Beam [employer] Work Phone: 5(015)072-538014 [place] [address] 09-27-2024 20:42-0400 Heart rate 95 /min Zebulun Beam [employer] Work Phone: 8(526)571-206714 [place] [address] 09-27-2024 20:42-0400 Respiratory rate 20 /min Zebulun Beam [employer] Work Phone: 1(170)221-956814 [place] [address] 09-27-2024 20:42-0400 SaO2% (BldA) [Mass fraction] 100 % Zebulun Beam [employer] Work Phone: 3(682)412-279014 [place] [address] 09-27-2024 20:42-0400 Systolic blood pressure 146 mm[Hg] Zebulun Beam [employer] Work Phone: 0(158)203-040614 [place] [address] 09-27-2024 11:50-0400 Body height 167.64 cm Zebulun Beam [employer] Work Phone: 0(185)071-474814 [place] [address] 09-27-2024 11:50-0400 Body mass index (BMI) [Ratio] 46.5 kg/m2 Zebulun Beam [employer] Work Phone: 6(307)167-268114 [place] [address] 09-27-2024 11:50-0400 Body weight 130.9 kg Zebulun Beam [employer] Work Phone: 7(925)827-055667 [place] [address] 09-21-2024 22:47-0400 Body temperature 97.6 [degF] Naina Da Silva [employer] Work Phone: 0(394)120-708314 [place] [address] 09-21-2024 22:47-0400 Diastolic blood pressure 72 mm[Hg] Naina Da Silva [employer] Work Phone: 1(576)780-810714 [place] [address] 09-21-2024 22:47-0400 Heart rate 75 /min Naina Da Silva [employer] Work Phone: 4(055)762-391314 [place] [address] 09-21-2024 22:47-0400 Respiratory rate 16 /min Naina Da Silva [employer] Work Phone: 7(565)416-701646 [address] 09-21-2024 22:47-0400 SaO2% (BldA) [Mass fraction] 98 % Naina Da Silva [employer] Work Phone: 8(359)464-383114 [place] [address] 09-21-2024 22:47-0400 Systolic blood pressure 145 mm[Hg] Naina Da Silva [employer] Work Phone: 1(507)681-019767 [place] [address] 09-21-2024 20:32-0400 Body height 167.64 cm Naina Da Silva [employer] Work Phone: 5(067)329-952767 [place] [address] 09-21-2024 20:32-0400 Body mass index (BMI) [Ratio] 47.1 kg/m2 Naina Da Silva [employer] Work Phone: 6(339)318-135414 [place] [address] 09-21-2024 20:32-0400 Body weight 132.44 kg Naina Da Silva [employer] Work Phone: 8(082)298-313967 [place] [address] 09-04-2024 23:45-0400 Body temperature 98.4 [degF] Naina Da Silva [employer] Work Phone: 7(917)078-075314 [place] [address] 09-04-2024 23:45-0400 Diastolic blood pressure 74 mm[Hg] Naina Da Silva [employer] Work Phone: 2(830)144-839746 [address] 09-04-2024 23:45-0400 Heart rate 85 /min Naina Da Silva [employer] Work Phone: 5(978)243-549814 [place] [address] 09-04-2024 23:45-0400 Respiratory rate 14 /min Naina Da Silva [employer] Work Phone: 6(330)291-078614 [place] [address] 09-04-2024 23:45-0400 SaO2% (BldA) [Mass fraction] 99 % Naina Da Silva [employer] Work Phone: 7(580)264-114214 [place] [address] 09-04-2024 23:45-0400 Systolic blood pressure 141 mm[Hg] Naina Da Silva [employer] Work Phone: 9(138)938-660467 [place] [address] 09-04-2024 21:14-0400 Body height 167.64 cm Naina Da Silva [employer] Work Phone: 7(993)230-837567 [place] [address] 09-04-2024 21:14-0400 Body mass index (BMI) [Ratio] 48.2 kg/m2 Naina Da Silva [employer] Work Phone: 0(798)446-004667 [place] [address] 09-04-2024 21:14-0400 Body weight 135.62 kg Naina Da Silva [employer] Work Phone: 5(463)561-545967 [place] [address] 07-24-2024 07:25-0400 Body mass index (BMI) [Ratio] 47 kg/m2 Naina Da Silva [employer] Work Phone: 1(003)566-922567 [place] [address] 07-24-2024 07:25-0400 Body weight 132.9 kg Naina Da Silva [employer] Work Phone: 0(314)290-264867 [place] [address] 07-24-2024 07:25-0400 Diastolic blood pressure 76 mm[Hg] Naina Da Silva [employer] Work Phone: 8(281)841-769167 [place] [address] 07-24-2024 07:25-0400 Heart rate 56 /min Naina Da Silva [employer] Work Phone: 2(319)090-441167 [place] [address] 07-24-2024 07:25-0400 Respiratory rate 18 /min Naina Da Silva [employer] Work Phone: 3(208)453-633967 [place] [address] 07-24-2024 07:25-0400 SaO2% (BldA) [Mass fraction] 97 % Naina Da Silva [employer] Work Phone: 2(664)150-618667 [place] [address] 07-24-2024 07:25-0400 Systolic blood pressure 121 mm[Hg] Naina Da Silva [employer] Work Phone: 2(924)476-297367 [place] [address] 07-15-2024 10:49-0400 Body height 170.2 cm Jey Johnson MD Work Phone: [facility] 07-15-2024 10:49-0400 Body mass index (BMI) [Ratio] 46.42 kg/m2 Jey Johnson MD Work Phone: [facility] 07-15-2024 10:49-0400 Body weight 134.45 kg Jey Johnson MD Work Phone: [facility] 07-15-2024 10:49-0400 Diastolic blood pressure 78 mm[Hg] Jey Johnson MD Work Phone: [facility] 07-15-2024 10:49-0400 Heart rate 61 /min Jey Johnson MD Work Phone: [facility] 07-15-2024 10:49-0400 Respiratory rate 20 /min Jey Johnson MD Work Phone: [facility] 07-15-2024 10:49-0400 SaO2% (BldA) [Mass fraction] 97 % Jey Johnson MD Work Phone: [facility] 07-15-2024 10:49-0400 Systolic blood pressure 122 mm[Hg] Jey Johnson MD Work Phone: [facility] 06-03-2024 13:14-0400 Body temperature 97.9 [degF] Naina Da Silva [employer] Work Phone: [facility] 06-03-2024 13:14-0400 Diastolic blood pressure 87 mm[Hg] Naina Da Silva [employer] Work Phone: [facility] 06-03-2024 13:14-0400 Heart rate 107 /min Naina Da Silva [employer] Work Phone: [facility] 06-03-2024 13:14-0400 Respiratory rate 22 /min Naina Da Silva [employer] Work Phone: [facility] 06-03-2024 13:14-0400 SaO2% (BldA) [Mass fraction] 99 % Naina Da Silva [employer] Work Phone: 4(676)678-532814 [place] [address] 06-03-2024 13:14-0400 Systolic blood pressure 161 mm[Hg] Naina Da Silva [employer] Work Phone: 6(647)129-865967 [place] [address] 06-03-2024 09:38-0400 Body height 168 cm Naina Da Silva [employer] Work Phone: 3(399)417-134167 [place] [address] 06-03-2024 09:38-0400 Body mass index (BMI) [Ratio] 47.7 kg/m2 Naina Da Silva [employer] Work Phone: 3(176)709-394267 [place] [address] 06-03-2024 09:38-0400 Body weight 134.7 kg Naina Da Silva [employer] Work Phone: 3(941)271-364367 [place] [address] 06-02-2024 19:26-0400 Body height 167.64 cm Naina Da Silva [employer] Work Phone: 5(586)145-730967 [place] [address] 06-02-2024 19:26-0400 Body mass index (BMI) [Ratio] 47.9 kg/m2 Naina Da Silva [employer] Work Phone: 5(477)188-423467 [place] [address] 06-02-2024 19:26-0400 Body temperature 97.8 [degF] Naina Da Silva [employer] Work Phone: 4(493)024-029967 [place] [address] 06-02-2024 19:26-0400 Body weight 134.76 kg Naina Da Silva [employer] Work Phone: 2(449)841-283867 [place] [address] 06-02-2024 19:26-0400 Diastolic blood pressure 112 mm[Hg] Naina Da Silva [employer] Work Phone: 8(522)564-115167 [place] [address] 06-02-2024 19:26-0400 Heart rate 103 /min Naina Da Silva [employer] Work Phone: 5(433)290-178767 [place] [address] 06-02-2024 19:26-0400 Respiratory rate 13 /min Naina Da Silva [employer] Work Phone: 5(310)416-943267 [place] [address] 06-02-2024 19:26-0400 SaO2% (BldA) [Mass fraction] 100 % Naina Da Silva [employer] Work Phone: 3(099)910-465867 [place] [address] 06-02-2024 19:26-0400 Systolic blood pressure 172 mm[Hg] Naina Da Silva [employer] Work Phone: [facility] 05-29-2024 14:41-0400 Diastolic blood pressure 114 mm[Hg] Naina Da Silva [employer] Work Phone: [facility] 05-29-2024 14:41-0400 Systolic blood pressure 161 mm[Hg] Naina Da Silva [employer] Work Phone: [facility] 05-29-2024 14:29-0400 Body mass index (BMI) [Ratio] 47.7 kg/m2 Naina Da Silva [employer] Work Phone: [facility] 05-29-2024 14:29-0400 Body weight 134.26 kg Naina Da Silva [employer] Work Phone: 5(728)692-001914 [place] [address] 05-29-2024 14:29-0400 Heart rate 98 /min Naina Da Silva [employer] Work Phone: [facility] 05-29-2024 14:29-0400 Respiratory rate 18 /min Naina Da Silva [employer] Work Phone: 9(461)570-680214 [place] [address] 05-29-2024 14:29-0400 SaO2% (BldA) [Mass fraction] 97 % Naina Da Silva [employer] Work Phone: [facility] 05-16-2024 08:52-0400 Body mass index (BMI) [Ratio] 46.28 kg/m2 Huey Cortes DO, PhD Work Phone: [facility] 05-16-2024 08:52-0400 Body weight 134.04 kg Huey Cortes DO PhD Work Phone: [facility] Comment on above: Patient-reported 05-16-2024 08:52-0400 Diastolic blood pressure 102 mm[Hg] Huey Cortes DO, PhD Work Phone: [facility] Comment on above: Patient-reported 05-16-2024 08:52-0400 Heart rate 100 /min Huey Cortes DO PhD Work Phone: [facility] Comment on above: Patient-reported 05-16-2024 08:52-0400 Systolic blood pressure 177 mm[Hg] Huey Cortes DO PhD Work Phone: [facility] Comment on above: Patient-reported 05-15-2024 00:14-0400 Body temperature 98.1 [degF] Naina Da Silva NP-C Work Phone: [facility] 05-15-2024 00:14-0400 Diastolic blood pressure 65 mm[Hg] Naina Da Silva [employer] Work Phone: 7(650)096-670214 [place] [address] 05-15-2024 00:14-0400 Heart rate 88 /min Naina Da Silva [employer] Work Phone: 4(374)081-919214 [place] [address] 05-15-2024 00:14-0400 Respiratory rate 22 /min Naina Da Silva [employer] Work Phone: 2(333)127-944114 [place] [address] 05-15-2024 00:14-0400 SaO2% (BldA) [Mass fraction] 99 % Naina Da Silva [employer] Work Phone: 4(589)987-365114 [place] [address] 05-15-2024 00:14-0400 Systolic blood pressure 123 mm[Hg] Naina Da Silva [employer] Work Phone: 3(566)286-554314 [place] [address] 05-14-2024 20:47-0400 Body height 167.64 cm Naina Da Silva NP-C Work Phone: 7(917)628-008714 [place] [address] 05-14-2024 20:47-0400 Body mass index (BMI) [Ratio] 47.1 kg/m2 Naina Da Silva [employer] Work Phone: 2(131)895-607014 [place] [address] 05-14-2024 20:47-0400 Body weight 132.53 kg Naina Da Silva NP-C Work Phone: 9(788)298-806214 [place] [address] 05-08-2024 17:24-0400 Body temperature 97.2 [degF] Naina Da Silva NP-C Work Phone: 2(306)557-479214 [place] [address] 05-08-2024 17:24-0400 Diastolic blood pressure 96 mm[Hg] Naina Da Silva [employer] Work Phone: [facility] 05-08-2024 17:24-0400 Heart rate 79 /min Naina Da Silva [employer] Work Phone: [facility] 05-08-2024 17:24-0400 Respiratory rate 14 /min Nainaben Da Silva [employer] Work Phone: [facility] 05-08-2024 17:24-0400 SaO2% (BldA) [Mass fraction] 99 % Nainaben Da Silva [employer] Work Phone: 0(002)524-890414 [place] [address] 05-08-2024 17:24-0400 Systolic blood pressure 128 mm[Hg] Nainaben Da Silva [employer] Work Phone: 8(796)417-738414 [place] [address] 05-08-2024 14:36-0400 Body height 167.64 cm Naina Da Silva [employer] Work Phone: 8(693)589-247714 [place] [address] 05-08-2024 14:36-0400 Body mass index (BMI) [Ratio] 46.1 kg/m2 Nainakourtney Da Silva [employer] Work Phone: 1(492)814-791814 [place] [address] 05-08-2024 14:36-0400 Body weight 129.72 kg Nainaben Da Silva [employer] Work Phone: [facility] 04-15-2024 11:25-0500 Body height 170.2 cm Jey Johnson MD Work Phone: [facility] 04-15-2024 11:25-0500 Body mass index (BMI) [Ratio] 45.67 kg/m2 Jey Johnson MD Work Phone: [facility] 04-15-2024 11:25-0500 Body weight 132.27 kg Jey Johnson MD Work Phone: [facility] 04-15-2024 11:25-0500 Diastolic blood pressure 68 mm[Hg] Jey Johnson MD Work Phone: [facility] 04-15-2024 11:25-0500 Heart rate 68 /min Jey Johnson MD Work Phone: [facility] 04-15-2024 11:25-0500 Respiratory rate 20 /min Jey Johnson MD Work Phone: [facility] 04-15-2024 11:25-0500 SaO2% (BldA) [Mass fraction] 98 % Jey Johnson MD Work Phone: [facility] 04-15-2024 11:25-0500 Systolic blood pressure 120 mm[Hg] Jey Johnson MD Work Phone: [facility] 04-14-2024 16:19-0500 Body mass index (BMI) [Ratio] 46.17 kg/m2 Lincoln Balderas MD Work Phone: [facility] 04-14-2024 16:19-0500 Body temperature 98.49 [degF] Lincoln Balderas MD Work Phone: [facility] 04-14-2024 16:19-0500 Body weight 133.7 kg Lincoln Balderas MD Work Phone: [facility] 04-14-2024 16:19-0500 Diastolic blood pressure 98 mm[Hg] Lincoln Balderas MD Work Phone: [facility] 04-14-2024 16:19-0500 Heart rate 76 /min Lincoln Balderas MD Work Phone: [facility] 04-14-2024 16:19-0500 Respiratory rate 18 /min Lincoln Balderas MD Work Phone: [facility] 04-14-2024 16:19-0500 SaO2% (BldA) [Mass fraction] 97 % Lincoln Balderas MD Work Phone: [facility] 04-14-2024 16:19-0500 Systolic blood pressure 142 mm[Hg] Lincoln Balderas MD Work Phone: [facility] 01-25-2024 12:44-0500 Body mass index (BMI) [Ratio] 46.61 kg/m2 Louis Schmidt APRN.SERVICE DELIVERY CONSULTANT Work Phone: [facility] 01-25-2024 12:44-0500 Body temperature 98.6 [degF] Louis Schmidt APRN.SERVICE DELIVERY CONSULTANT Work Phone: [facility] 01-25-2024 12:44-0500 Body weight 135 kg Louis Schmidt APRN.SERVICE DELIVERY CONSULTANT Work Phone: [facility] 01-25-2024 12:44-0500 Diastolic blood pressure 90 mm[Hg] Louis Schmidt APRN.SERVICE DELIVERY CONSULTANT Work Phone: [facility] 01-25-2024 12:44-0500 Heart rate 69 /min Louis Schmidt APRN.SERVICE DELIVERY CONSULTANT Work Phone: [facility] 01-25-2024 12:44-0500 Respiratory rate 20 /min Louis Schmidt APRN.SERVICE DELIVERY CONSULTANT Work Phone: [facility] 01-25-2024 12:44-0500 SaO2% (BldA) [Mass fraction] 100 % Louis Schmidt APRN.SERVICE DELIVERY CONSULTANT Work Phone: [facility] 01-25-2024 12:44-0500 Systolic blood pressure 132 mm[Hg] Luois Schmidt APRN.SERVICE DELIVERY CONSULTANT Work Phone: [facility] 01-24-2024 13:52-0500 Body mass index (BMI) [Ratio] 46.61 kg/m2 Krislyn Aberegg PA Work Phone: [facility] 01-24-2024 13:52-0500 Body temperature 97.9 [degF] Krislyn Aberegg PA Work Phone: [facility] 01-24-2024 13:52-0500 Body weight 135 kg Krislyn Aberegg PA Work Phone: [facility] 01-24-2024 13:52-0500 Diastolic blood pressure 82 mm[Hg] Krislyn Aberegg PA Work Phone: [facility] 01-24-2024 13:52-0500 Heart rate 73 /min Krislyn Aberegg PA Work Phone: [facility] 01-24-2024 13:52-0500 Respiratory rate 20 /min Krislyn Aberegg PA Work Phone: [facility] 01-24-2024 13:52-0500 SaO2% (BldA) [Mass fraction] 98 % Krislyn Aberegg PA Work Phone: [facility] 01-24-2024 13:52-0500 Systolic blood pressure 128 mm[Hg] Krislyn Aberegg PA Work Phone: [facility] 01-14-2024 14:31-0500 Body height 167.64 cm Naina Da Silva [employer] Work Phone: [facility] 01-14-2024 14:31-0500 Body mass index (BMI) [Ratio] 47.4 kg/m2 Naina Da Silva [employer] Work Phone: [facility] 01-14-2024 14:31-0500 Body weight 133.35 kg Naina Da Silva [employer] Work Phone: [facility] 01-14-2024 14:31-0500 Diastolic blood pressure 78 mm[Hg] Naina Da Silva [employer] Work Phone: [facility] 01-14-2024 14:31-0500 Heart rate 93 /min Naina Da Silva [employer] Work Phone: [facility] 01-14-2024 14:31-0500 Respiratory rate 18 /min Naina Da Silva [employer] Work Phone: [facility] 01-14-2024 14:31-0500 SaO2% (BldA) [Mass fraction] 96 % Naina Da Silva [employer] Work Phone: [facility] 01-14-2024 14:31-0500 Systolic blood pressure 127 mm[Hg] Naina Da Silva [employer] Work Phone: [facility] 01-08-2024 11:52-0500 Body height 170.2 cm Jey Johnson MD Work Phone: [facility] 01-08-2024 11:52-0500 Body mass index (BMI) [Ratio] 46.05 kg/m2 Jey Johnson MD Work Phone: [facility] 01-08-2024 11:52-0500 Body weight 133.36 kg Jey Johnson MD Work Phone: [facility] 01-08-2024 11:52-0500 Diastolic blood pressure 76 mm[Hg] Jey Johnson MD Work Phone: [facility] 01-08-2024 11:52-0500 Heart rate 72 /min Jey Johnson MD Work Phone: [facility] 01-08-2024 11:52-0500 Respiratory rate 21 /min Jey Johnson MD Work Phone: [facility] 01-08-2024 11:52-0500 SaO2% (BldA) [Mass fraction] 100 % Jey Johnson MD Work Phone: [facility] 01-08-2024 11:52-0500 Systolic blood pressure 122 mm[Hg] Jey Johnson MD Work Phone: [facility] 12-31-2023 13:55-0500 Body height 170.2 cm Alisson Lake [employer] Work Phone: [facility] 12-31-2023 13:55-0500 Body mass index (BMI) [Ratio] 46.36 kg/m2 Alisson [place] [employer] Work Phone: [facility] 12-31-2023 13:55-0500 Body weight 134.26 kg Alisson [place] [employer] Work Phone: [facility] 12-31-2023 13:55-0500 Diastolic blood pressure 86 mm[Hg] Alisson [place] [employer] Work Phone: [facility] 12-31-2023 13:55-0500 Heart rate 75 /min [place] [employer] Work Phone: [facility] 12-31-2023 13:55-0500 SaO2% (BldA) [Mass fraction] 99 % [place] [employer] Work Phone: [facility] 12-31-2023 13:55-0500 Systolic blood pressure 124 mm[Hg] Alisson [place] [employer] Work Phone: [facility] 10-26-2023 15:23-0400 Body height 170.2 cm Jey Johnson MD Work Phone: [facility] 10-26-2023 15:23-0400 Body mass index (BMI) [Ratio] 43.92 kg/m2 Jey Johnson MD Work Phone: [facility] 10-26-2023 15:23-0400 Body temperature 97.9 [degF] Jey Johnson MD Work Phone: [facility] 10-26-2023 15:23-0400 Body weight 127.19 kg Jey Johnson MD Work Phone: [facility] 10-26-2023 15:23-0400 Heart rate 61 /min Jey Johnson MD Work Phone: [facility] 10-26-2023 15:23-0400 SaO2% (BldA) [Mass fraction] 99 % Jey Johnson MD Work Phone: [facility] 09-13-2023 16:21-0400 Body temperature 98.91 [degF] Lincoln Balderas MD Work Phone: [facility] 09-13-2023 16:21-0400 Body weight 135.5 kg Lincoln Balderas MD Work Phone: [facility] 09-13-2023 16:21-0400 Diastolic blood pressure 68 mm[Hg] Lincoln Balderas MD Work Phone: [facility] 09-13-2023 16:21-0400 Heart rate 85 /min Lincoln Balderas MD Work Phone: [facility] 09-13-2023 16:21-0400 Respiratory rate 20 /min Lincoln Balderas MD Work Phone: [facility] 09-13-2023 16:21-0400 SaO2% (BldA) [Mass fraction] 95 % Lincoln Balderas MD Work Phone: [facility] 09-13-2023 16:21-0400 Systolic blood pressure 104 mm[Hg] Lincoln Balderas MD Work Phone: [facility] 06-03-2023 22:04-0400 Body temperature 97 [degF] [facility] Work Phone: [facility] 06-03-2023 22:04-0400 Diastolic blood pressure 72 mm[Hg] [facility] Work Phone: 5(400)175-129014 [place] [address] 06-03-2023 22:04-0400 Heart rate 102 /min [facility] Work Phone: 7(879)513-502814 [place] [address] 06-03-2023 22:04-0400 Respiratory rate 16 /min [facility] Work Phone: 8(984)840-589814 [place] [address] 06-03-2023 22:04-0400 SaO2% (BldA) [Mass fraction] 96 % [facility] Work Phone: [facility] 06-03-2023 22:04-0400 Systolic blood pressure 120 mm[Hg] [facility] Work Phone: 4(314)184-214714 [place] [address] 06-03-2023 20:26-0400 Body height 167.64 cm [facility] Work Phone: 7(000)677-862414 [place] [address] 06-03-2023 20:26-0400 Body mass index (BMI) [Ratio] 47.7 kg/m2 [facility] Work Phone: 4(842)565-348914 [place] [address] 06-03-2023 20:26-0400 Body weight 134.03 kg [facility] Work Phone: 1(131)758-389567 [place] [address] 05-08-2023 16:48-0400 Body temperature 97.4 [degF] [facility] Work Phone: 2(523)918-642267 [place] [address] 05-08-2023 16:48-0400 Diastolic blood pressure 69 mm[Hg] [facility] Work Phone: 6(137)799-660967 [place] [address] 05-08-2023 16:48-0400 Heart rate 91 /min [facility] Work Phone: 5(107)880-923967 [place] [address] 05-08-2023 16:48-0400 Respiratory rate 18 /min [facility] Work Phone: 4(129)202-809067 [place] [address] 05-08-2023 16:48-0400 SaO2% (BldA) [Mass fraction] 98 % [facility] Work Phone: 5(622)786-672567 [place] [address] 05-08-2023 16:48-0400 Systolic blood pressure 114 mm[Hg] [facility] Work Phone: 7(307)774-017067 [place] [address] 05-08-2023 14:46-0400 Body height 167.64 cm [facility] Work Phone: 1(183)136-042967 [place] [address] 05-08-2023 14:46-0400 Body mass index (BMI) [Ratio] 45.3 kg/m2 [facility] Work Phone: 3(557)055-762567 [place] [address] 05-08-2023 14:46-0400 Body weight 127.5 kg [facility] Work Phone: 0(162)182-283267 [place] [address] 04-08-2023 06:21-0500 Body temperature 98 [degF] [facility] Work Phone: 5(164)588-053367 [place] [address] 04-08-2023 06:21-0500 Diastolic blood pressure 74 mm[Hg] [facility] Work Phone: 8(247)388-113867 [place] [address] 04-08-2023 06:21-0500 Heart rate 94 /min [facility] Work Phone: 7(671)976-962067 [place] [address] 04-08-2023 06:21-0500 Respiratory rate 18 /min [facility] Work Phone: 5(554)087-886267 [place] [address] 04-08-2023 06:21-0500 SaO2% (BldA) [Mass fraction] 99 % [facility] Work Phone: 6(306)824-385867 [place] [address] 04-08-2023 06:21-0500 Systolic blood pressure 143 mm[Hg] [facility] Work Phone: 2(399)934-790867 [place] [address] 04-07-2023 16:02-0500 Body height 167.64 cm [facility] Work Phone: 0(070)209-874467 [place] [address] 04-07-2023 16:02-0500 Body mass index (BMI) [Ratio] 47.3 kg/m2 [facility] Work Phone: 9(435)107-659667 [place] [address] 04-07-2023 16:02-0500 Body weight 133 kg [facility] Work Phone: 9(576)784-211067 [place] [address] 03-20-2023 08:20-0500 Body mass index (BMI) [Ratio] 47 kg/m2 [facility] Work Phone: 7(069)803-418067 [place] [address] 03-20-2023 08:20-0500 Body temperature 98.6 [degF] [facility] Work Phone: 9(377)958-146367 [place] [address] 03-20-2023 08:20-0500 Body weight 131.99 kg [facility] Work Phone: 8(054)671-485167 [place] [address] 03-20-2023 08:20-0500 Diastolic blood pressure 76 mm[Hg] [facility] Work Phone: 6(555)451-500867 [place] [address] 03-20-2023 08:20-0500 Heart rate 80 /min [facility] Work Phone: 8(587)741-206667 [place] [address] 03-20-2023 08:20-0500 Respiratory rate 18 /min [facility] Work Phone: 7(272)827-612567 [place] [address] 03-20-2023 08:20-0500 SaO2% (BldA) [Mass fraction] 97 % [facility] Work Phone: 4(250)928-373967 [place] [address] 03-20-2023 08:20-0500 Systolic blood pressure 112 mm[Hg] [facility] Work Phone: 9(748)960-533267 [place] [address] 12-20-2022 11:29-0400 Body temperature 98.1 [degF] [facility] Work Phone: 0(105)131-552467 [place] [address] 12-20-2022 11:29-0400 Diastolic blood pressure 83 mm[Hg] [facility] Work Phone: 9(020)313-103167 [place] [address] 12-20-2022 11:29-0400 Heart rate 85 /min [facility] Work Phone: 9(715)574-350767 [place] [address] 12-20-2022 11:29-0400 Respiratory rate 12 /min [facility] Work Phone: 1(631)357-361667 [place] [address] 12-20-2022 11:29-0400 SaO2% (BldA) [Mass fraction] 100 % [facility] Work Phone: 8(213)361-833767 [place] [address] 12-20-2022 11:29-0400 Systolic blood pressure 129 mm[Hg] [facility] Work Phone: 5(079)896-326667 [place] [address] 12-18-2022 19:24-0400 Body height 167.[address] [facility] Work Phone: 6(271)104-472767 [place] [address] 12-18-2022 19:24-0400 Body mass index (BMI) [Ratio] 45.9 kg/m2 [facility] Work Phone: 5(114)446-583667 [place] [address] 12-18-2022 19:24-0400 Body weight 129.1 kg [facility] Work Phone: 9(225)992-088367 [place] [address] 12-18-2022 17:03-0400 Body mass index (BMI) [Ratio] 47.5 kg/m2 [facility] Work Phone: 4(610)369-498367 [place] [address] 12-18-2022 17:03-0400 Body weight 133.4 kg [facility] Work Phone: 5(659)775-510967 [place] [address] 12-18-2022 17:02-0400 Diastolic blood pressure 89 mm[Hg] [facility] Work Phone: 6(252)778-964167 [place] [address] 12-18-2022 17:02-0400 Heart rate 93 /min [facility] Work Phone: 3(412)568-118867 [place] [address] 12-18-2022 17:02-0400 Respiratory rate 17 /min [facility] Work Phone: 5(135)468-643367 [place] [address] 12-18-2022 17:02-0400 SaO2% (BldA) [Mass fraction] 99 % [facility] Work Phone: 3(947)449-016867 [place] [address] 12-18-2022 17:02-0400 Systolic blood pressure 130 mm[Hg] [facility] Work Phone: 6(356)325-047367 [place] [address] 12-18-2022 12:28-0400 Body height 167.64 cm [facility] Work Phone: 2(694)833-184367 [place] [address] 12-18-2022 12:28-0400 Body temperature 97.1 [degF] [facility] Work Phone: 4(288)802-581167 [place] [address] 12-09-2022 20:10-0400 Body temperature 97.8 [degF] [facility] Work Phone: 5(683)713-090967 [place] [address] 12-09-2022 19:31-0400 Body height 170.[address] [facility] Work Phone: 1(818)305-042467 [place] [address] 12-09-2022 19:31-0400 Body mass index (BMI) [Ratio] 42.9 kg/m2 [facility] Work Phone: 5(571)772-072667 [place] [address] 12-09-2022 19:31-0400 Body weight 124.28 kg [facility] Work Phone: 9(558)807-246467 [place] [address] 12-09-2022 19:31-0400 Diastolic blood pressure 78 mm[Hg] [facility] Work Phone: 5(855)117-690967 [place] [address] 12-09-2022 19:31-0400 Heart rate 98 /min [facility] Work Phone: 0(445)458-154367 [place] [address] 12-09-2022 19:31-0400 Respiratory rate 15 /min [facility] Work Phone: 3(104)469-548267 [place] [address] 12-09-2022 19:31-0400 SaO2% (BldA) [Mass fraction] 100 % [facility] Work Phone: 3(747)653-488467 [place] [address] 12-09-2022 19:31-0400 Systolic blood pressure 130 mm[Hg] [facility] Work Phone: 7(930)612-092567 [place] [address] 11-23-2022 00:02-0400 Body height 167.[address] [facility] Work Phone: 0(443)069-909267 [place] [address] 11-23-2022 00:02-0400 Body mass index (BMI) [Ratio] 44.4 kg/m2 [facility] Work Phone: 4(828)097-668567 [place] [address] 11-23-2022 00:02-0400 Body weight [address] [facility] Work Phone: 4(951)244-450767 [place] [address] 11-22-2022 22:15-0400 Diastolic blood pressure 65 mm[Hg] [facility] Work Phone: 1(468)536-306767 [place] [address] 11-22-2022 22:15-0400 Heart rate 66 /min [facility] Work Phone: 6(974)499-554367 [place] [address] 11-22-2022 22:15-0400 Respiratory rate 18 /min [facility] Work Phone: 4(132)639-850467 [place] [address] 11-22-2022 22:15-0400 SaO2% (BldA) [Mass fraction] 99 % [facility] Work Phone: 9(630)574-126967 [place] [address] 11-22-2022 22:15-0400 Systolic blood pressure 133 mm[Hg] [facility] Work Phone: 4(946)591-412067 [place] [address] 11-22-2022 20:15-0400 Body temperature 97.7 [degF] [facility] Work Phone: 1(487)821-895467 [place] [address] 10-03-2022 08:43-0400 Body height 168.91 cm [facility] Work Phone: 9(424)687-621867 [place] [address] 10-03-2022 08:33-0400 Body mass index (BMI) [Ratio] 47.2 kg/m2 [facility] Work Phone: 6(569)043-962267 [place] [address] 10-03-2022 08:33-0400 Body weight 134.77 kg [facility] Work Phone: 8(175)860-229967 [place] [address] 10-03-2022 08:33-0400 Diastolic blood pressure 76 mm[Hg] [facility] Work Phone: 3(195)575-604567 [place] [address] 10-03-2022 08:33-0400 Systolic blood pressure 124 mm[Hg] [facility] Work Phone: 9(748)633-993667 [place] [address] 09-19-2022 14:44-0400 Diastolic blood pressure 70 mm[Hg] [facility] Work Phone: 2(274)641-969867 [place] [address] 09-19-2022 14:44-0400 Heart rate 107 /min [facility] Work Phone: 7(824)752-011767 [place] [address] 09-19-2022 14:44-0400 Respiratory rate 18 /min [facility] Work Phone: 7(596)657-399167 [place] [address] 09-19-2022 14:44-0400 SaO2% (BldA) [Mass fraction] 98 % [facility] Work Phone: 1(123)032-109267 [place] [address] 09-19-2022 14:44-0400 Systolic blood pressure 142 mm[Hg] [facility] Work Phone: 6(787)249-022567 [place] [address] 09-19-2022 13:10-0400 Body mass index (BMI) [Ratio] 47.3 kg/m2 [facility] Work Phone: 3(283)395-224367 [place] [address] 09-19-2022 13:10-0400 Body weight 135.17 kg [facility] Work Phone: 3(803)958-121767 [place] [address] 08-15-2022 22:13-0400 Diastolic blood pressure 76 mm[Hg] [facility] Work Phone: 2(429)977-662667 [place] [address] 08-15-2022 22:13-0400 Heart rate 80 /min [facility] Work Phone: 5(107)637-136867 [place] [address] 08-15-2022 22:13-0400 Respiratory rate 18 /min [facility] Work Phone: 0(514)899-892467 [place] [address] 08-15-2022 22:13-0400 Systolic blood pressure 128 mm[Hg] [facility] Work Phone: 7(142)638-466767 [place] [address] 08-15-2022 19:01-0400 Body height 170.18 cm [facility] Work Phone: 8(273)605-646267 [place] [address] 08-15-2022 19:01-0400 Body mass index (BMI) [Ratio] 46.5 kg/m2 [facility] Work Phone: 2(460)023-458567 [place] [address] 08-15-2022 19:01-0400 Body temperature 98.2 [degF] [facility] Work Phone: 7(601)650-869767 [place] [address] 08-15-2022 19:01-0400 Body weight 134.76 kg [facility] Work Phone: 7(936)412-882067 [place] [address] 08-15-2022 19:01-0400 SaO2% (BldA) [Mass fraction] 100 % [facility] Work Phone: 0(431)602-076167 [place] [address] 08-08-2022 15:25-0400 Body temperature 98 [degF] [facility] Work Phone: 6(228)099-352167 [place] [address] 08-08-2022 15:25-0400 Diastolic blood pressure 67 mm[Hg] [facility] Work Phone: 1(267)666-611167 [place] [address] 08-08-2022 15:25-0400 Heart rate 83 /min [facility] Work Phone: 1(004)495-842767 [place] [address] 08-08-2022 15:25-0400 Respiratory rate 16 /min [facility] Work Phone: 7(252)295-767667 [place] [address] 08-08-2022 15:25-0400 SaO2% (BldA) [Mass fraction] 100 % [facility] Work Phone: 4(653)513-375967 [place] [address] 08-08-2022 15:25-0400 Systolic blood pressure 118 mm[Hg] [facility] Work Phone: 8(721)251-175467 [place] [address] 08-08-2022 12:47-0400 Body height 170.18 cm [facility] Work Phone: 3(500)808-627367 [place] [address] 08-08-2022 12:47-0400 Body mass index (BMI) [Ratio] 46.4 kg/m2 [facility] Work Phone: 3(681)398-524067 [place] [address] 08-08-2022 12:47-0400 Body weight 134.[address] [facility] Work Phone: 4(218)915-679467 [place] [address] 02-28-2022 09:11-0500 Body height 170.[address] [facility] Work Phone: 0(732)067-217667 [place] [address] 02-28-2022 08:59-0500 Body mass index (BMI) [Ratio] 45.6 kg/m2 [facility] Work Phone: 0(700)040-051367 [place] [address] 02-28-2022 08:59-0500 Body weight 132.[address] [facility] Work Phone: 2(574)543-447267 [place] [address] 02-28-2022 08:59-0500 Diastolic blood pressure 72 mm[Hg] [facility] Work Phone: 1(511)880-554067 [place] [address] 02-28-2022 08:59-0500 Systolic blood pressure 120 mm[Hg] [facility] Work Phone: 9(966)682-512367 [place] [address] 01-24-2022 23:05-0500 Diastolic blood pressure 68 mm[Hg] [facility] Work Phone: 2(969)724-100767 [place] [address] 01-24-2022 23:05-0500 Heart rate 84 /min [facility] Work Phone: 4(546)544-359267 [place] [address] 01-24-2022 23:05-0500 Respiratory rate 17 /min [facility] Work Phone: 4(319)082-627867 [place] [address] 01-24-2022 23:05-0500 SaO2% (BldA) [Mass fraction] 95 % [facility] Work Phone: 9(060)603-319067 [place] [address] 01-24-2022 23:05-0500 Systolic blood pressure 117 mm[Hg] [facility] Work Phone: 1(430)803-980867 [place] [address] 01-24-2022 16:45-0500 Body height 170.[address] [facility] Work Phone: 2(984)228-496967 [place] [address] Work Phone: 01-24-2022 16:45-0500 Body mass index (BMI) [Ratio] 45.6 kg/m2 [facility] Work Phone: 8(874)925-805367 [place] [address] 01-24-2022 16:45-0500 Body temperature 99 [degF] [facility] Work Phone: 8(549)679-676367 [place] [address] 01-24-2022 16:45-0500 Body weight 131.99 kg [facility] Work Phone: 4(295)016-145367 [place] [address] 01-15-2022 15:27-0500 Diastolic blood pressure 80 mm[Hg] [facility] Work Phone: 2(522)710-424467 [place] [address] 01-15-2022 15:27-0500 Heart rate 100 /min [facility] Work Phone: 1(266)061-750667 [place] [address] 01-15-2022 15:27-0500 Respiratory rate 17 /min [facility] Work Phone: 1(630)018-873567 [place] [address] 01-15-2022 15:27-0500 SaO2% (BldA) [Mass fraction] 97 % [facility] Work Phone: 6(905)071-478267 [place] [address] 01-15-2022 15:27-0500 Systolic blood pressure 124 mm[Hg] [facility] Work Phone: 3(563)557-440967 [place] [address] 01-15-2022 12:14-0500 Body mass index (BMI) [Ratio] 45.4 kg/m2 [facility] Work Phone: 4(152)906-864267 [place] [address] 01-15-2022 12:14-0500 Body temperature 98.2 [degF] [facility] Work Phone: 0(332)863-248067 [place] [address] 01-15-2022 12:14-0500 Body weight 131.54 kg [facility] Work Phone: 5(095)898-062167 [place] [address] 12-12-2021 16:21-0400 Body temperature 99 [degF] Lincoln Balderas MD Work Phone: [facility] 12-12-2021 16:21-0400 Body weight 130.64 kg Lincoln Baledras MD Work Phone: [facility] 12-12-2021 16:21-0400 Diastolic blood pressure 78 mm[Hg] Lincoln Balderas MD Work Phone: [facility] 12-12-2021 16:21-0400 Heart rate 120 /min Lincoln Balderas MD Work Phone: [facility] 12-12-2021 16:21-0400 Respiratory rate 18 /min Lincoln Balderas MD Work Phone: [facility] 12-12-2021 16:21-0400 SaO2% (BldA) [Mass fraction] 99 % Lincoln Balderas MD Work Phone: [facility] 12-12-2021 16:21-0400 Systolic blood pressure 118 mm[Hg] Lincoln Balderas MD Work Phone: [facility] 09-28-2021 09:12-0400 Body height 170.18 cm [facility] Work Phone: [facility] Work Phone: 09-28-2021 09:11-0400 Body mass index (BMI) [Ratio] 43.8 kg/m2 [facility] Work Phone: [facility] Work Phone: 09-28-2021 09:11-0400 Body weight 127 kg [facility] Work Phone: [facility] Work Phone: 09-28-2021 09:11-0400 Diastolic blood pressure 80 mm[Hg] [facility] Work Phone: [facility] Work Phone: 09-28-2021 09:11-0400 Systolic blood pressure 110 mm[Hg] [facility] Work Phone: [facility] Work Phone: 09-10-2021 12:35-0400 Diastolic blood pressure 75 mm[Hg] [facility] Work Phone: [facility] Work Phone: 09-10-2021 12:35-0400 Heart rate 82 /min [facility] Work Phone: [facility] Work Phone: 09-10-2021 12:35-0400 Respiratory rate 15 /min [facility] Work Phone: [facility] Work Phone: 09-10-2021 12:35-0400 SaO2% (BldA) [Mass fraction] 98 % [facility] Work Phone: [facility] Work Phone: 09-10-2021 12:35-0400 Systolic blood pressure 146 mm[Hg] [facility] Work Phone: [facility] Work Phone: 09-10-2021 09:41-0400 Body temperature 98.9 [degF] [facility] Work Phone: [facility] Work Phone: 09-10-2021 02:42-0400 Body height 170.18 cm [facility] Work Phone: [facility] Work Phone: 09-10-2021 02:42-0400 Body mass index (BMI) [Ratio] 42.9 kg/m2 [facility] Work Phone: [facility] Work Phone: 09-10-2021 02:42-0400 Body weight 124.31 kg [facility] Work Phone: [facility] Work Phone: 09-03-2021 10:52-0400 Body height 170.18 cm [facility] Work Phone: [facility] Work Phone: 09-03-2021 10:52-0400 Body mass index (BMI) [Ratio] 42.3 kg/m2 [facility] Work Phone: [facility] Work Phone: 09-03-2021 10:52-0400 Body temperature 97.9 [degF] [facility] Work Phone: [facility] Work Phone: 09-03-2021 10:52-0400 Body weight 122.46 kg [facility] Work Phone: [facility] Work Phone: 09-03-2021 10:52-0400 Diastolic blood pressure 80 mm[Hg] [facility] Work Phone: [facility] Work Phone: 09-03-2021 10:52-0400 Heart rate 73 /min [facility] Work Phone: [facility] Work Phone: 09-03-2021 10:52-0400 Respiratory rate 16 /min [facility] Work Phone: [facility] Work Phone: 09-03-2021 10:52-0400 SaO2% (BldA) [Mass fraction] 97 % [facility] Work Phone: [facility] Work Phone: 09-03-2021 10:52-0400 Systolic blood pressure 116 mm[Hg] [facility] Work Phone: [facility] Work Phone: 08-29-2021 22:32-0400 Diastolic blood pressure 74 mm[Hg] [facility] Work Phone: [facility] Work Phone: 08-29-2021 22:32-0400 Heart rate 102 /min [facility] Work Phone: [facility] Work Phone: 08-29-2021 22:32-0400 Respiratory rate 15 /min [facility] Work Phone: [facility] Work Phone: 08-29-2021 22:32-0400 SaO2% (BldA) [Mass fraction] 99 % [facility] Work Phone: [facility] Work Phone: 08-29-2021 22:32-0400 Systolic blood pressure 135 mm[Hg] [facility] Work Phone: [facility] Work Phone: 08-29-2021 18:19-0400 Body height 170.18 cm [facility] Work Phone: [facility] Work Phone: 08-29-2021 18:19-0400 Body mass index (BMI) [Ratio] 44.9 kg/m2 [facility] Work Phone: [facility] Work Phone: 08-29-2021 18:19-0400 Body temperature 98.3 [degF] [facility] Work Phone: [facility] Work Phone: 08-29-2021 18:19-0400 Body weight 130.18 kg [facility] Work Phone: [facility] Work Phone: 08-16-2021 19:45-0400 Body height 170.18 cm [facility] Work Phone: [facility] Work Phone: 08-16-2021 19:45-0400 Body mass index (BMI) [Ratio] 44.6 kg/m2 [facility] Work Phone: [facility] Work Phone: 08-16-2021 19:45-0400 Body temperature 98 [degF] [facility] Work Phone: [facility] Work Phone: 08-16-2021 19:45-0400 Body weight 129.3 kg [facility] Work Phone: [facility] Work Phone: 08-16-2021 19:45-0400 Diastolic blood pressure 86 mm[Hg] [facility] Work Phone: [facility] Work Phone: 08-16-2021 19:45-0400 Heart rate 98 /min [facility] Work Phone: [facility] Work Phone: 08-16-2021 19:45-0400 Respiratory rate 14 /min [facility] Work Phone: [facility] Work Phone: 08-16-2021 19:45-0400 SaO2% (BldA) [Mass fraction] 95 % [facility] Work Phone: [facility] Work Phone: 08-16-2021 19:45-0400 Systolic blood pressure 178 mm[Hg] [facility] Work Phone: [facility] Work Phone: 08-08-2021 08:10-0400 Body mass index (BMI) [Ratio] 44.5 kg/m2 [facility] Work Phone: [facility] [facility] Work Phone: 08-08-2021 08:10-0400 Body weight 129.04 kg [facility] Work Phone: 08-08-2021 08:10-0400 Diastolic blood pressure 86 mm[Hg] [facility] Work Phone: [facility] Work Phone: 08-08-2021 08:10-0400 Systolic blood pressure 138 mm[Hg] [facility] Work Phone: [facility] Work Phone: 12-14-2020 20:47-0400 Heart rate 76 /min ERNESTO BURK [facility] 12-14-2020 20:47-0400 Respiratory rate 18 /min ERNESTO MILEST DO [facility] 12-14-2020 18:35-0400 Body temperature 98.42 [degF] ERNESTO BURK DO [facility] 12-14-2020 18:35-0400 Body weight 118.2 kg ERNESTO BUKR DO [facility] 12-14-2020 18:35-0400 Diastolic blood pressure 84 mm[Hg] ERNESTO BURK DO [facility] 12-14-2020 18:35-0400 Heart rate 78 /min ERNESTO BURK DO [facility] 12-14-2020 18:35-0400 Respiratory rate 18 /min ERNESTO BURK DO [facility] 12-14-2020 18:35-0400 Systolic blood pressure 139 mm[Hg] ERNESTO BURK DO [facility] Encounters Encounter Date Encounter Type Care Provider Facility Start: 12-22-2024 End: 12-22-2024 ambulatory [facility] Facility:[facility] Start: 12-09-2024 End: 12-09-2024 Zeus Miller [employer] -Laboratory Specimen Work Phone: Start: 12-09-2024 End: 12-09-2024 Patient encounter status Zeus Miller [facility] Start: 12-09-2024 End: 12-09-2024 Zeus Miller [employer] -[facility] Work Phone: Start: 12-09-2024 End: 12-09-2024 ambulatory Zeus Miller [employer] Facility:[facility] Start: 12-09-2024 End: 12-09-2024 ambulatory Zeus Miller [employer] [facility] Start: 11-28-2024 End: 11-28-2024 Shawanda Ramires [employer] -Laboratory Work Phone: Start: 11-28-2024 End: 11-28-2024 ambulatory Zebulun Beam [employer] Work Phone: -[facility] Start: 11-28-2024 End: 11-28-2024 ambulatory Shawanda Ramires [employer] [facility] Start: 11-25-2024 End: 11-25-2024 ambulatory PERIS BERA Facility:[facility] Start: 11-20-2024 End: 11-20-2024 Zebulun Beam [employer] -Laboratory Work Phone: Start: 11-20-2024 End: 11-20-2024 ambulatory Zebulun Beam VSC [facility] Start: 11-18-2024 End: 11-18-2024 Zebulun Beam [employer] Work Phone: -Emergency Department Work Phone: Start: 11-18-2024 End: 11-18-2024 Emergency department patient visit Zebulun Beam [employer] Work Phone: -Emergency Department Start: 11-14-2024 End: 11-14-2024 ambulatory Zebulun Beam [employer] Work Phone: -Laboratory Start: 11-14-2024 End: 11-14-2024 Shawanda Ramires [employer] -Laboratory Work Phone: Start: 11-14-2024 End: 11-14-2024 ambulatory Shawanda Ramires NP [facility] Start: 11-12-2024 Encounter for other preprocedural examination [facility] Start: 11-06-2024 ambulatory Yessica carvalho PA Facility:[facility] Start: 11-06-2024 Dr. Garrick Mcgowan MD -[facility] Start: 10-28-2024 End: 10-28-2024 ambulatory Zebulun Beam [employer] Work Phone: -Cardiovascular Services Start: 10-28-2024 End: 10-28-2024 Yessica Guthrie PA -Cardiovascular Services Work Phone: Start: 10-27-2024 Non-patient / Non-visit Andreas Oliva DO -[facility] Start: 10-27-2024 End: 10-27-2024 Admission to same day surgery center Andreas Oliva DO -Endoscopy Work Phone: Start: 10-27-2024 End: 10-27-2024 Dr. Garrick Mcgowan [facility] Start: 10-27-2024 End: 10-28-2024 ambulatory Naina Da Silva [employer] Work Phone: -Endoscopy Start: 10-16-2024 End: 10-16-2024 Patient encounter procedure Jey Johnson MD Work Phone: Endocrinology Comment on above: PCOS (polycystic ova sivakumar syndrome) (Primary Dx); Class 3 severe obesity without serious comorbidity with body mass index (BMI) of 45.0 to 49.9 in adult, unspecified obesity type (HCC) Start: 10-16-2024 End: 10-16-2024 ambulatory JEY JOHNSON Facility:[facility] Start: 10-15-2024 End: 10-15-2024 [facility] Laura Carson PhD Work Phone: Endocrinology Comment on above: Binge eating disorde r, moderate (Primary Dx); Bipolar affective disorder, currently depressed, mild (HCC); Generalized anxiety disorder Start: 10-02-2024 End: 10-02-2024 Telemedicine consultation with patient Maria Elena Savage Business Education Instructor Work Phone: Endocrinology Start: 10-02-2024 End: 10-02-2024 ambulatory Maria Elena Savage Business Education Instructor Work Phone: Endocrinology Comment on above: PCOS (polycystic ova sivakumar syndrome) (Primary Dx) Start: 09-27-2024 End: 09-27-2024 Dr. Mazin Wilkinson MD -Emergency Departmen t Work Phone: Start: 09-27-2024 End: 09-27-2024 Emergency department patient visit Karuna Carina [employer] Work Phone: -Emergency Department Work Phone: Start: 09-25-2024 End: 09-25-2024 Patient encounter procedure Andreas Oliva DO -[facility] Work Phone: Start: 09-25-2024 End: 09-25-2024 Andreas Oliva DO -[facility] Work Phone: Start: 09-25-2024 End: 09-25-2024 ambulatory Naina Da Silva [employer] Work Phone: -[facility] Start: 09-21-2024 End: 09-21-2024 Dr. Rodolfo Das MD -Emergency [facility] Work Phone: Start: 09-21-2024 End: 09-21-2024 Emergency department patient visit Naina Da Silva [employer] Work Phone: -Emergency Department Work Phone: Start: 09-19-2024 End: 09-22-2024 Refill Jey Johnson MD Work Phone: Endocrinology Comment on above: Refill Request Start: 09-18-2024 End: 09-18-2024 Telephone encounter Arsenio VAZQUEZW Endocrinology Start: 09-04-2024 End: 09-04-2024 Naina Da Silva [employer] Work Phone: -Emergency Department Work Phone: Start: 09-04-2024 End: 09-04-2024 Emergency department patient visit Naina Da Silva [employer] Work Phone: -Emergency Department Start: 09-02-2024 End: 09-02-2024 ambulatory Naina Da Silva [employer] Work Phone: -Laboratory Daniel Tierney Start: 09-02-2024 End: 09-02-2024 Patient encounter procedure VSC Naina Da Silva [employer] -Laboratory Daniel Tierney Start: 09-02-2024 End: 09-02-2024 [facility] Naina CROWDERC -Laboratory Daniel Tierney Start: 09-02-2024 End: 09-02-2024 ambulatory Naina Da Silva [facility] Facility[facility] Start: 08-28-2024 End: 08-28-2024 Telephone encounter Arsenio VAZQUEZW Endocrinology Comment on above: Ambulatory [facility] Start: 08-26-2024 End: 08-26-2024 ambulatory Maria Elena Savage Business Education Instructor Work Phone: Endocrinology Start: 08-07-2024 End: 08-07-2024 ambulatory Naina Da Silva [employer] Work Phone: [facility] Work Phone: Start: 08-07-2024 End: 08-07-2024 Patient encounter procedure Andreas Hazel DO -[facility] Work Phone: Start: 08-07-2024 End: 08-07-2024 Andreas Friend DO -[facility] Work Phone: Start: 08-07-2024 End: 08-07-2024 ambulatory Andreas Hazel [facility] Start: 08-01-2024 End: 08-01-2024 [facility] Laura Carson PhD Work Phone: Endocrinology Comment on above: Obesity, Class III, BMI 40-49.9 (morbid obesity) (HCC) (Primary Dx); Binge eating disorder, moderate; Bipolar affective disorder, currently depressed, mild (HCC); Generalized anxiety disorder Start: 07-24-2024 End: 07-24-2024 Patient encounter procedure Shawanda CROWDERC -[facility] Work Phone: Start: 07-24-2024 End: 07-24-2024 Shawanda BAZAN -[facility] Work Phone: Start: 07-24-2024 End: 07-24-2024 ambulatory Naina Da Silva [employer] Work Phone: [facility] Work Phone: Start: 07-15-2024 End: 07-15-2024 Patient encounter procedure Jey Johnson MD Work Phone: Endocrinology Comment on above: PCOS (polycystic ova sivakumar syndrome) [E28.2] (Primary Dx) Start: 07-15-2024 End: 07-15-2024 ambulatory JEY JOHNSON Facility:[facility] Start: 07-08-2024 End: 07-08-2024 Patient encounter procedure Andreas Oliva -[facility] Work Phone: Start: 07-08-2024 End: 07-08-[address] [facility] Work Phone: Start: 07-08-2024 End: 07-08-2024 ambulatory Naina Da Silva [employer] Work Phone: [facility] Work Phone: Start: 06-24-2024 End: 06-27-2024 Refill Jey Johnson MD Work Phone: Endocrinology Comment on above: Refill Request Start: 06-20-2024 Non-patient / Non-visit Dr. Ozzy Greco MD -[facility] Start: 06-20-2024 End: 06-20-2024 ambulatory Naina Da Silva [employer] Work Phone: [facility] Work Phone: Start: 06-20-2024 End: 06-20-2024 Patient encounter procedure Shawanda Ramires [employer] -Cardiovascular Services Work Phone: Start: 06-20-2024 End: 06-20-2024 Dr. Ozzy Greco MD -[facility] Start: 06-20-2024 End: 06-20-2024 ambulatory Shawanda Ramires NP Facility[facility] Start: 06-10-2024 Patient encounter status Naina Da Silva [employer] Work Phone: [facility] Start: 06-10-2024 End: 06-10-2024 Patient encounter procedure Karuna Lim [employer] -Akhil, Daniel Tierney Start: 06-10-2024 End: 06-10-2024 Zebulun Beam [employer] -Laboratory Daniel Tierney Start: 06-10-2024 End: 06-10-2024 ambulatory Zebulun Beam VSC [facility] Start: 06-05-2024 Non-patient / Non-visit Dr. Marco Bartlett MD -[facility] Work Phone: Start: 06-05-2024 ambulatory Shawanda Ramires [employer] Facili ty:[facility] Start: 06-05-2024 Registered Referred Shawanda Ramires [employer] -C -Cardiovascular Services Work Phone: Start: 06-05-2024 Dr. Marco Bartlett MD - [facility] Work Phone: Start: 06-03-2024 End: 06-03-2024 Dr. Jaylon Galicia MD -Emergency Departm ent Work Phone: Start: 06-03-2024 End: 06-03-2024 Emergency department patient visit Naina Da Silva [employer] Work Phone: -Emergency Department Work Phone: Start: 06-03-2024 End: 06-03-2024 ambulatory Naina Da Silva [employer] Work Phone: [facility] Work Phone: Start: 06-03-2024 End: 06-03-2024 Patient encounter procedure Zebulun Beam [employer] -[facility] Work Phone: Start: 06-03-2024 End: 06-03-2024 Zebulun Beam [employer] -[facility] Work Phone: Start: 06-02-2024 End: 06-02-2024 ED PHYSICIAN PROVIDER -Emergency Departm ent Work Phone: Start: 06-02-2024 End: 06-02-2024 Emergency department patient visit Naina Da Silva [employer] Work Phone: -Emergency Department Work Phone: Start: 06-02-2024 End: 06-03-2024 [facility] Laura Carson PhD Work Phone: Endocrinology Comment on above: Bipolar affective di sorder, currently depressed, mild (HCC) (Primary Dx); Obesity, Class III, BMI 40-49.9 (morbid obesity) (HCC); Binge eating disorder, moderate; Generalized anxiety disorder Start: 05-29-2024 End: 05-29-2024 Patient encounter procedure Shawanda Ramires [employer] -[facility] Work Phone: Start: 05-29-2024 End: 05-29-2024 Shawanda Ramires [employer] -[facility] Work Phone: Start: 05-29-2024 End: 05-29-2024 ambulatory Naina Da Silva VSC Facility:[facility] Start: 05-23-2024 End: 05-23-2024 ambulatory Naina Avinash [employer] Work Phone: [facility] Work Phone: Start: 05-23-2024 End: 05-23-2024 Patient encounter procedure Karina Guerra [employer] -Laboratory Work Phone: Start: 05-23-2024 End: 05-23-2024 Karina Guerra [employer] -Laboratory Work Phone: Start: 05-23-2024 End: 05-23-2024 ambulatory Karina Guerra [employer] [facility] Start: 05-16-2024 End: 05-16-[facility] Work Phone: Endocrinology Comment [...] Emergency department patient visit Naina Da Silva [employer] Work Phone: -Emergency Department Work Phone: Start: 05-08-2024 End: 05-08-2024 Dr. Stan Lin DO -Emergency Departmen t Work Phone: Start: 05-08-2024 End: 05-08-2024 Emergency department patient visit Naina Da Silva [employer] Work Phone: -Emergency Department Work Phone: Start: 05-07-2024 End: 05-07-2024 ambulatory Naina Da Silva [employer] Work Phone: [facility] Work Phone: Start: 05-07-2024 End: 05-07-2024 Patient encounter procedure Karuna Lim [employer] -Laboratory, Daniel Tierney Start: 05-07-2024 End: 05-07-2024 Zeshayna Beam [employer] -Laboratory Daniel Tierney Start: 05-07-2024 End: 05-07-2024 ambulatory Naina [facility] Facility[facility] Start: 04-22-2024 End: 04-22-2024 ambulatory Naina Da Silva [employer] Work Phone: [facility] Work Phone: Start: 04-22-2024 End: 04-22-2024 Patient encounter procedure Karuna Lim [employer] -Laboratory, Daniel Tierney Start: 04-22-2024 End: 04-22-[facility] Start: 04-15-2024 End: 04-15-2024 Follow-up encounter Maru HICKEY Work Phone: [facility] Start: 04-15-2024 End: 04-15-2024 ambulatory JEY SALGUERO Facility:[facility] Start: 04-15-2024 End: 04-15-2024 Patient encounter procedure Jey Johnson MD Work Phone: Endocrinology Comment on above: Obesity, Class III, BMI 40-49.9 (morbid obesity) ([facility]) (Primary Dx); PCOS (polycystic ovarian syndrome) Start: 04-14-2024 End: 04-14-2024 ambulatory [facility] Facility:[facility] Start: 04-14-2024 End: 04-14-2024 Office outpatient visit 15 minutes Lincoln Balderas MD Work Phone: [facility] Comment on above: Influenza-like illne ss (Primary Dx) Start: 02-25-2024 End: 02-25-[address] Work Phone: Endocrinology Comment on above: PCOS (polycystic ova sivakumar syndrome) (Primary Dx); Obesity, Class III, BMI 40-49.9 (morbid obesity) (HCC) Start: 02-25-2024 End: 02-25-2024 Telemedicine consultation with patient Carissa Roxy VELIZ Work Phone: Endocrinology Start: 02-05-2024 End: 02-05-2024 Patient encounter procedure Karuna Lim [employer] -Laboratory, Daniel Tierney Start: 02-05-2024 End: 02-05-2024 ambulatory Naina [facility] Start: 01-25-2024 End: 01-25-2024 Telephone encounter Mallika Mo APRN.SERVICE DELIVERY CONSULTANT Work Phone: [facility] Comment on above: Results Start: 01-25-2024 End: 01-25-2024 Patient encounter procedure Louis Schmidt APRN.SERVICE DELIVERY CONSULTANT Work Phone: [facility] Comment on above: Acute otitis media, left (Primary Dx); Acute otitis externa of left ear, unspecified type Start: 01-25-2024 End: 01-25-2024 ambulatory [facility] Facility:[facility] Start: 01-24-2024 End: 01-24-2024 ambulatory [facility] Facility:[facility] Start: 01-24-2024 End: 01-24-2024 Patient encounter procedure Maru HICKEY Work Phone: [facility] Comment on above: Sore throat (Primary Dx); URI, acute Start: 01-14-2024 End: 01-14-[address] Marco Bartlett MD -[facility] Work Phone: Start: 01-14-2024 End: 01-14-2024 ambulatory Naina Da Silva [facility] Facility:[facility] Start: 01-08-2024 End: 01-08-2024 ambulatory JEY JOHNSON Facility:[facility] Start: 01-08-2024 End: 01-08-2024 Patient encounter procedure Jey Johnson MD Work Phone: Endocrinology Comment on above: PCOS (polycystic ova sivakumar syndrome) (Primary Dx); Obesity, Class III, BMI 40-49.9 (morbid obesity) ([facility]) Start: 12-31-2023 End: 12-31-2023 Bamboo flowsheet Alisson S Weygandt [employer] Work Phone: [facility] Start: 12-31-2023 End: 12-31-2023 Bamboo flowsheet Alisson S Weygandt [employer] Work Phone: [facility] Start: 12-31-2023 End: 12-31-2023 Office outpatient visit 25 minutes Alisson S Weygandt [employer] Work Phone: [facility] Comment on above: Morbid obesity with BMI of 45.0-49.9, adult ([facility]) (Primary Dx); Chronic migraine without aura, intractable, without status migrainosus ([facility]) Start: 12-31-2023 End: 12-31-2023 ambulatory ALISSON S WEYGANDT Not Available Start: 12-19-2023 End: 12-19-2023 Telephone encounter Jey Johnson MD Work Phone: Endocrinology Comment on above: Release Of Medical R ecords Start: 12-06-2023 End: 12-17-2023 Refill Alisson S Weygandt [employer] Work Phone: [facility] Comment on above: Chronic migraine wit hout aura, intractable, without status migrainosus (CMS/HCC) Start: 11-27-2023 End: 11-27-2023 Patient encounter procedure Louis Schmidt APRN.SERVICE DELIVERY CONSULTANT Work Phone: [facility] Comment on above: Pain (Primary [...] 06-03-2023 End: 06-03-2023 Emergency department patient visit [facility] Work Phone: [facility]-Emergency Department Work Phone: Start: 05-29-2023 End: 05-29-2023 ambulatory [place] Not Available Start: 05-08-2023 End: 05-08-2023 Emergency department patient visit [facility] Work Phone: [facility]-Emergency Department Work Phone: Start: 05-08-2023 End: 05-08-2023 Patient encounter procedure Louis Schmidt APRN.SERVICE DELIVERY CONSULTANT Work Phone: [facility] Comment on above: Dizziness (Primary D x); Headache, unspecified headache type Start: 04-08-2023 End: 04-14-2023 Evaluation and management of inpatient [facility] Start: 04-07-2023 End: 04-08-2023 Emergency department patient visit [facility] Work Phone: [facility]-Emergency Department Work Phone: Start: 03-20-2023 End: 03-20-2023 Patient encounter procedure [facility] Work Phone: [facility] Work Phone: Start: 02-06-2023 End: 02-06-2023 ambulatory [facility] Work Phone: [facility] Work Phone: Start: 02-06-2023 End: 02-06-2023 Patient encounter procedure [facility] Work Phone: [facility]ound, [facility] Work Phone: Start: 01-30-2023 End: 01-30-2023 ambulatory [facility] Work Phone: [facility] Work Phone: Start: 01-30-2023 End: 01-30-2023 Patient encounter procedure [facility] Work Phone: [facility] Work Phone: Start: 01-29-2023 End: 01-29-2023 ambulatory [facility] Work Phone: [facility] Work Phone: Start: 01-29-2023 End: 01-29-2023 Discharged Recurring [facility] Work Phone: [facility]-Physical Therapy Work Phone: Start: 12-20-2022 Non-patient / Non-visit [facility] Work Phone: [facility] Work Phone: Start: 12-19-2022 End: 12-20-2022 Evaluation and management of inpatient [facility] Work Phone: [facility]-Progressive [facility] Work Phone: Start: 12-19-2022 Non-patient / Non-visit [facility] Work Phone: [facility] Work Phone: Start: 12-19-2022 Non-patient / Non-visit [facility] Work Phone: [facility] Start: 12-18-2022 Non-patient / Non-visit [facility] Work Phone: [facility] Work Phone: Start: 12-18-2022 End: 12-20-2022 Evaluation and management of inpatient [facility] Work Phone: [facility] Work Phone: Start: 12-18-2022 observation encounter [facility] Work Phone: [facility] Work Phone: Start: 12-12-2022 End: 12-12-2022 ambulatory [facility] Work Phone: [facility] Work Phone: Start: 12-12-2022 End: 12-12-2022 Patient encounter procedure [facility] Work Phone: [facility]-Laboratory Work Phone: Start: 12-09-2022 End: 12-09-2022 Emergency department patient visit [facility] Work Phone: [facility]-Emergency Department Work Phone: Start: 12-04-2022 End: 12-04-2022 Emergency department patient visit VANI CARLSON THERAPIST SPEECH-SERVICE DELIVERY CONSULTANT Facility:[facility] Start: 11-22-2022 End: 11-23-2022 Emergency department patient visit [facility] Work Phone: [facility]Emergency [facility] Work Phone: Start: 11-07-2022 End: 11-07-2022 ambulatory [facility] Work Phone: [facility] Work Phone: Start: 11-07-2022 End: 11-07-2022 Patient encounter procedure [facility] Work Phone: [facility] Work Phone: Start: 10-03-2022 End: 10-03-2022 Patient encounter procedure [facility] Work Phone: [facility]-Laboratory, Specimen Work Phone: Start: 10-03-2022 End: 10-03-2022 Patient encounter procedure [facility] Work Phone: [facility] Work Phone: Start: 09-19-2022 End: 09-19-2022 Patient encounter procedure [facility] Work Phone: [facility] Work Phone: Start: 08-29-2022 End: 08-29-2022 Patient encounter procedure [facility] Work Phone: [facility] Work Phone: Start: 08-15-2022 End: 08-15-2022 Emergency department patient visit [facility] Work Phone: [facility]-Emergency Department Start: 08-08-2022 Non-patient / Non-visit [facility] Work Phone: [facility] Start: 08-08-2022 End: 08-08-2022 Admission to same day surgery center [facility] Work Phone: [facility]-Endoscopy Start: 08-08-2022 End: 08-08-2022 ambulatory [facility] Work Phone: [facility] Work Phone: Start: 06-06-2022 End: 06-06-2022 Patient encounter procedure [facility] Work Phone: [facility] Start: 03-15-2022 End: 03-15-2022 ambulatory [facility] Work Phone: [facility] Work Phone: Start: 03-15-2022 End: 03-15-2022 Patient encounter procedure [facility] Work Phone: [facility]Nuclear Medicine, [facility] Start: 03-07-2022 End: 03-07-2022 ambulatory [facility] Work Phone: [facility] Work Phone: Start: 03-07-2022 End: 03-07-2022 Patient encounter procedure [facility] Work Phone: [facility], [facility] Start: 02-28-2022 End: 02-28-2022 Patient encounter procedure [facility] Work Phone: [facility] Start: 02-17-2022 End: 02-17-2022 ambulatory [facility] Work Phone: [facility] Work Phone: Start: 02-17-2022 End: 02-17-2022 Patient encounter procedure [facility] Work Phone: [facility]-Laboratory, Specimen Start: 02-15-2022 End: 02-15-2022 Patient encounter procedure [facility] Work Phone: [facility] Start: 01-31-2022 End: 01-31-2022 [facility]ulatory [facility] Work Phone: Start: 01-31-2022 End: 01-31-2022 Patient encounter procedure [facility] Start: 01-24-2022 End: 01-24-2022 Emergency department patient visit [facility] Work Phone: [facility] Start: 01-15-2022 End: 01-15-2022 Emergency department patient visit [facility] Work Phone: [facility] Start: 12-14-2021 End: 12-14-2021 ambulatory [facility] Work Phone: [facility] Work Phone: Start: 12-14-2021 End: 12-14-2021 Patient encounter procedure [facility] Work Phone: [facility] Start: 12-12-2021 End: 12-12-2021 Patient encounter procedure Lincoln Balderas MD Work Phone: [facility] Comment on above: Dental infection (Pr imary Dx) Start: 11-30-2021 End: 11-30-2021 Patient encounter procedure [facility] Work Phone: [facility] Start: 09-28-2021 End: 09-28-2021 Patient encounter procedure [facility] Work Phone: [facility] Start: 09-27-2021 End: 09-27-2021 Patient encounter procedure [facility] Work Phone: [facility] Start: 09-10-2021 End: 09-10-2021 Emergency department patient visit [facility] Work Phone: [facility] Start: 09-03-2021 End: 09-03-2021 Emergency department patient visit [facility] Work Phone: [facility] Start: 09-03-2021 End: 09-03-2021 Patient encounter procedure Lincoln Balderas MD Work Phone: [facility] Comment on above: Nausea and vomiting, unspecified vomiting type (Primary Dx); Dizziness Start: 08-31-2021 End: 08-31-2021 Patient encounter procedure [facility] Work Phone: [facility] Start: 08-29-2021 End: 08-29-2021 Emergency department patient visit [facility] Work Phone: [facility] Start: 08-24-2021 End: 08-24-2021 Patient encounter procedure [facility] Work Phone: [facility] Start: 08-16-2021 End: 08-16-2021 Emergency department patient visit [facility] Work Phone: [facility] Start: 08-08-2021 End: 08-08-2021 Patient encounter procedure [facility] Work Phone: [facility] Start: 06-27-2021 End: 06-27-2021 Patient encounter procedure [facility] Start: 12-14-2020 End: 12-14-2020 Emergency department patient visit ERNESTO BURK DO [facility] Start: 01-07-2020 End: 01-07-2020 Subsequent hospital visit by physician Xr [facility] Work Phone: Radiology Comment on above: Foot pain, left [[id number] .[id number]] Start: 01-31-2017 End: 01-31-2017 Ambulatory SOMMER LECHUGA [facility] Start: 11-24-2016 Ambulatory [facility] Start: 09-18-2016 End: 09-19-2016 Ambulatory DELMI GOYO [facility] Procedures Date Procedure Procedure Detail Performing Clinician Start: 12-09-2024 Urine culture Zebulun Beam [employer] Work Phone: Start: 11-28-2024 Tenkiller measurement Zebulun Beam [employer] Work Phone: Start: 11-28-2024 Mean corpuscular hemoglobin concentration determination Zebulun Beam [employer] Work Phone: Start: 11-28-2024 Neutrophil count Zebulun Beam [employer] Work Phone: Start: 11-28-2024 Nucleated red blood cell count procedure Zebulun Beam [employer] Work Phone: Start: 11-28-2024 Platelet mean volume determination Zebul un Beam [employer] Work Phone: Start: 11-20-2024 Mean corpuscular hemoglobin concentration determination Zebulun Beam [employer] Work Phone: Start: 11-20-2024 Neutrophil count Zebulun Beam [employer] Work Phone: Start: 11-20-2024 Nucleated red blood cell count procedure Zebulun Beam [employer] Work Phone: Start: 11-20-2024 Platelet mean volume determination Zebul un Beam [employer] Work Phone: Start: 11-20-2024 Vitamin D, 25-hydroxy measurement Zebulu n Beam [employer] Work Phone: Start: 11-18-2024 Blood count smear mcrscp w/mnl difrntl wbc count Zebulun Beam [employer] Work Phone: Start: 11-18-2024 Estimated creatinine clearance Zebulun B eam [employer] Work Phone: Start: 11-18-2024 Tenkiller measurement Zebulun Beam [employer] Work Phone: Start: 11-18-2024 Mean corpuscular hemoglobin concentration determination Zebulun Beam [employer] Work Phone: Start: 11-18-2024 Neutrophil count Zebulun Beam [employer] Work Phone: Start: 11-18-2024 Nucleated red blood cell count procedure Zebulun Beam [employer] Work Phone: Start: 11-18-2024 Platelet mean volume determination Zebul un Beam [employer] Work Phone: Start: 10-27-2024 Rigo Da Silva [employer] Work Phone: Start: 2024 Blood count smear mcrscp w/mnl difrntl wbc count Zebulun Beam [employer] Work Phone: Start: 2024 Mean corpuscular hemoglobin concentration determination Zebulun Beam [employer] Work Phone: Start: 2024 Neutrophil count Zebulun Beam [employer] Work Phone: Start: 2024 Nucleated red blood cell count procedure Zebulun Beam [employer] Work Phone: Start: 2024 Platelet mean volume determination Zebul un Beam [employer] Work Phone: Start: 09-27-2024 Benzodiazepine measurement, urine Zebulu n Beam [employer] Work Phone: Start: 09-27-2024 Cocaine measurement, urine Zebulun Beam [employer] Work Phone: Start: 09-27-2024 Methadone measurement, urine Zebulun Rachel m [employer] Work Phone: Start: 09-27-2024 Urine cannabinoid measurement Zebulun Be am [employer] Work Phone: Start: 09-27-2024 Urine opiate measurement Zebulun Beam [employer] Work Phone: Start: 09-27-2024 Blood count smear mcrscp w/mnl difrntl wbc count Zebulun Beam [employer] Work Phone: Start: 09-27-2024 Estimated creatinine clearance Zebulun B eam [employer] Work Phone: Start: 09-27-2024 Mean corpuscular hemoglobin concentration determination Zebulun Beam [employer] Work Phone: Start: 09-27-2024 Neutrophil count Zebulun Beam [employer] Work Phone: Start: 09-27-2024 Nucleated red blood cell count procedure Zebulun Beam [employer] Work Phone: Start: 09-27-2024 Platelet mean volume determination Zebul un Beam [employer] Work Phone: Start: 09-21-2024 Blood count smear mcrscp w/mnl difrntl wbc count Zebulun Beam [employer] Work Phone: Start: 09-21-2024 Estimated creatinine clearance Naina santanain [employer] Work Phone: Start: 09-21-2024 Mean corpuscular hemoglobin concentration determination Zebulun Beam [employer] Work Phone: Start: 09-21-2024 Neutrophil count Zebulun Beam [employer] Work Phone: Start: 09-21-2024 Nucleated red blood cell count procedure Zebulun Beam [employer] Work Phone: Start: 09-21-2024 Platelet mean volume determination Zebul un Beam [employer] Work Phone: Start: 09-21-2024 Clostridium difficile detection Naina Da Silva [employer] Work Phone: Start: 09-04-2024 CT of head without contrast Naina Cope brightjessica [employer] Work Phone: Start: 09-04-2024 Blood count smear mcrscp w/mnl difrntl wbc count Naina Da Silva [employer] Work Phone: Start: 09-04-2024 Estimated creatinine clearance Naina Haque estherjessica [employer] Work Phone: Start: 09-04-2024 Tenkiller measurement Naina Da Silva [employer] Work Phone: Start: 09-04-2024 Mean corpuscular hemoglobin concentration determination Naina Da Silva [employer] Work Phone: Start: 09-04-2024 Neutrophil count Vazquezbulun Beam [employer] Work Phone: Start: 09-04-2024 Nucleated red blood cell count procedure Naina Da Silva [employer] Work Phone: Start: 09-04-2024 Platelet mean volume determination Jennifer Da Silva [employer] Work Phone: Start: 09-02-2024 Blood count smear mcrscp w/mnl difrntl wbc count Naina Da Silva [employer] Work Phone: Start: 09-02-2024 Mean corpuscular hemoglobin concentration determination Naina Da Silva [employer] Work Phone: Start: 09-02-2024 Neutrophil count Zebulun Beam [employer] Work Phone: Start: 09-02-2024 Nucleated red blood cell count procedure Naina Da Silva [employer] Work Phone: Start: 09-02-2024 Platelet mean volume determination Jennifer Da Silva [employer] Work Phone: Start: 09-02-2024 Procedure Naina Da Silva [employer] Work Phone: Comment on above: Test Ordered: [id number] Nu[employer] Vaginitis (V G)Test(s) 933928- Atopobium vaginae; 17990721- BVAB 2;142553- Megasphaera 1was developed and its performance characteristicsdetermined by [employer]. It has not been cleared or approvedby the Food and Drug Administration.Test(s) 901327-Fjwhuvy albicans, DAMARIS; 777560-Qtxsrkb glabrata, NAAwas developed and its performance characteristicsdetermined by [employer]. It has not been cleared or [...] =G Reference Range: NegativePerformed at: =G - [facility] [id number] Director: Idalia Yoo MD, Phone: [phone] at: - [facility] [id number] Director: Neeraj Marte PhD, Phone: [phone] Start: 09-02-2024 Urine microscopy: red cells Naina lozano [employer] Work Phone: Start: 09-02-2024 Urnls dip stick/tablet reagent auto microscopy Naina Da Silva [employer] Work Phone: Start: 09-02-2024 Urine culture Naina Da Silva NP-C Work Phone: Start: 08-07-2024 MRI of abdomen with contrast Naina Farias ryan [employer] Work Phone: Start: 06-10-2024 Blood count smear mcrscp w/mnl difrntl wbc count Naina Da Silva [employer] Work Phone: Start: 06-10-2024 Mean corpuscular hemoglobin concentration determination Naina Da Silva [employer] Work Phone: Start: 06-10-2024 Nucleated red blood cell count procedure Naina Da Silva [employer] Work Phone: Start: 06-10-2024 Platelet mean volume determination Jennifer Da Silva [employer] Work Phone: Start: 06-03-2024 Blood count smear mcrscp w/mnl difrntl wbc count Naina Da Silva [employer] Work Phone: Start: 06-03-2024 Estimated creatinine clearance Naina Haque katerina [employer] Work Phone: Start: 06-03-2024 Mean corpuscular hemoglobin concentration determination Naina Da Silva [employer] Work Phone: Start: 06-03-2024 Nucleated red blood cell count procedure Naina Da Silva [employer] Work Phone: Start: 06-03-2024 Platelet mean volume determination Jennifer Da Silva [employer] Work Phone: Start: 06-03-2024 CT angiography of chest with contrast Naina Da Silva [employer] Work Phone: Start: 06-03-2024 CT angiography of head and neck Naina Da Silva [employer] Work Phone: Start: 06-03-2024 Ultrasonography of abdomen Naina Rustam christy [employer] Work Phone: Start: 05-23-2024 Tenkiller measurement Naina Da Silva [employer] Work Phone: Start: 05-14-2024 Blood count smear mcrscp w/mnl difrntl wbc count Naina Da Silva [employer] Work Phone: Start: 05-14-2024 Estimated creatinine clearance Naina borges [employer] Work Phone: Start: 05-14-2024 Mean corpuscular hemoglobin concentration determination Naina Da Silva [employer] Work Phone: Start: 05-14-2024 Nucleated red blood cell count procedure Naina Da Silva [employer] Work Phone: Start: 05-14-2024 Platelet mean volume determination Jennifer Da Silva [employer] Work Phone: Start: 05-14-2024 Plain chest X-ray Naina Da Silva [employer] Work Phone: Start: 05-08-2024 Computed tomography of abdomen and pelvis with intravenous contrast Naina Da Silva [employer] Work Phone: Start: 05-08-2024 Blood count smear mcrscp w/mnl difrntl wbc count Naina Da Silva [employer] Work Phone: Start: 05-08-2024 Estimated creatinine clearance Naina borges [employer] Work Phone: Start: 05-08-2024 Mean corpuscular hemoglobin concentration determination Naina Da Silva [employer] Work Phone: Start: 05-08-2024 Nucleated red blood cell count procedure Naina Da Silva [employer] Work Phone: Start: 05-08-2024 Platelet mean volume determination Jennifer Da Silva [employer] Work Phone: Start: 05-08-2024 Triacylglycerol lipase measurement Jennifer Da Silva [employer] Work Phone: Start: 05-08-2024 Urine microscopy: red cells Naina Fariasn marta [employer] Work Phone: Start: 05-08-2024 Urnls dip stick/tablet reagent auto microscopy Naina Da Silva [employer] Work Phone: Start: 05-07-2024 Blood count smear mcrscp w/mnl difrntl wbc count Naina Da Silva [employer] Work Phone: Start: 05-07-2024 Mean corpuscular hemoglobin concentration determination Naina Da Silva [employer] Work Phone: Start: 05-07-2024 Nucleated red blood cell count procedure Naina Da Silva [employer] Work Phone: Start: 05-07-2024 Platelet mean volume determination Jennifer Da Silva [employer] Work Phone: Start: 02-05-2024 Urine culture Naina Da Silva [employer] Work Phone: Start: 01-24-2024 STREP A MOLECULAR (POC) Maru HICKEY Work Phone: Start: 06-03-2023 Plain chest X-ray [facility] Work Phone: Start: 05-08-2023 Plain chest X-ray [facility] Work Phone: Start: 05-08-2023 CT of head without contrast [facility] Work Phone: Start: 05-08-2023 SARS-CoV-2, Influenza & RSV (PCR) [facility] Work Phone: Start: 04-07-2023 Coronavirus COVID-19 PCR [facility] Work Phone: Start: 02-06-2023 Ultrasound elastography of liver [facility] Work Phone: Start: 12-18-2022 Plain chest X-ray [facility] Work Phone: Start: 12-18-2022 CT of head without contrast [facility] Work Phone: Start: 12-09-2022 Urine culture [facility] Work Phone: Start: 11-07-2022 MRI of brain without contrast [facility] Work Phone: Start: 09-19-2022 MRI of small intestine [facility] Work Phone: Start: 08-08-2022 Colonoscopy [facility] Work Phone: Start: 03-15-2022 Radionuclide gastric emptying study [facility] Work Phone: Start: 03-07-2022 Pelvic echography [facility] Work Phone: Start: 03-07-2022 Ultrasonography of abdomen [facility] Work Phone: Start: 03-07-2022 Ultrasound elastography [facility] Work Phone: Start: 01-24-2022 Computed tomography of abdomen and pelvis with intravenous contrast [facility] Work Phone: Start: 01-15-2022 Plain chest X-ray [facility] Work Phone: Start: 12-14-2021 MRI of brain with contrast [facility] Work Phone: Start: 11-30-2021 CT of abdomen [facility] Work Phone: Start: 08-16-2021 Radiography of ankle [facility] Work Phone: Start: 08-16-2021 Radiologic examination of knee [facility] Work Phone: Start: 08-16-2021 X-ray of both feet [facility] Work Phone: Start: 01-07-2020 Radex ankle complete minimum 3 views Clay Tinsley THERAPIST SPEECH.SERVICE DELIVERY 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 Work Phone: Cytopathology proced ure, preparation of smear, genital source [facility] Work Phone: Investigation of tra nsfusion reaction [facility] Work Phone: Lactoferrin measurement [facility] Work Phone: Lactoferrin measurement [facility] Work Phone: Ova OR parasites identification Ova OR parasites identification [facility] Work Phone: Spinal arthrodesis ERNESTO CLARK DO Viral antigen assay [facility] Work Phone: Plan of Treatment Date Care Activity Detail Author Start: 07-15-2025 BP Controlled (<130/80) BP Controlled (<130/80) [facility] in Start: 04-20-2025 End: 04-20-2025 Patient encounter procedure 04/20/2025 9:00 AM EST Office Visit Endocrinology [address] [place] [address] Jey Johnson MD [address] [place] [address] 6 month f/u-PCOS Endocrinology Comment on above: 6 month f/u-PCOS Start: 01-01-2025 ambulatory [facility] Start: 12-22-2024 End: 12-22-2024 Follow-up encounter 12/22/2024 10:30 AM EST [facility] Endocrinology [address] [phone] Laura Carson, PhD [address] [phone] follow up Endocrinology Comment on above: follow up Start: 12-09-2024 Urine culture [facility] Start: 12-09-2024 -Laboratory Specimen Work Phone: Start: 12-09-2024 End: 12-09-2024 -[facility] Work Phone: Start: 11-28-2024 Ambulatory ECG [facility] Start: 11-28-2024 End: 11-28-2024 Evaluation of diagnostic study results [facility] Start: 11-25-2024 End: 11-25-2024 Follow-up encounter 11/25/2024 2:00 PM EDT [facility] Endocrinology [address] [place] [address] Maria Elena Savage, Business Education Instructor [address] [phone] EX RX Follow up 1 of 3 Endocrinology Comment on above: EX RX Follow up 1 of 3 Start: 11-18-2024 [facility] Start: 11-18-2024 End: 11-18-2024 -Emergency Departmen t Work Phone: Start: 11-14-2024 -Laboratory Work Phone: Start: 10-27-2024 Colonoscopy w/biopsy single/multiple [facility] Start: 10-27-2024 Patient discharge [facility] Start: 10-20-2024 Influenza vaccination [facility] Start: 10-16-2024 End: 10-16-2024 Patient encounter procedure 10/16/2024 10:20 AM EDT Office Visit Endocrinology [address] [place] [address] Jey Johnson MD [address] [place] [address] 3 month f/u-PCOS Endocrinology Comment on above: 3 month f/u-PCOS Start: 10-15-2024 End: 10-15-2024 Follow-up encounter 10/15/2024 1:15 PM EDT [facility] Endocrinology [address] [phone] Laura Carson, PhD [address] [phone] Can you please schedule this patient for a follow up virtual visit on September 26 at 1:30. Endocrinology Comment on above: Can you please schedule this patient for a follow up virtual visit on September 26 at 1:30. Start: 10-02-2024 End: 10-02-2024 ambulatory 10/02/2024 2:00 PM EDT [facility] Endocrinology [address] [place] [address] Maria Elena Savage, Business Education Instructor [address] [phone] Virtual Exercise Prescription Endocrinology Comment on above: Virtual Exercise Prescription Start: 09-27-2024 [facility] Start: 09-27-2024 [facility] Start: 09-26-2024 End: 09-26-2024 Follow-up encounter Endocrinology Comment on above: Can you please schedule this patient for a follow up virtual visit on September 26 at 1:30. Start: 09-21-2024 [facility] Start: 09-21-2024 End: 09-21-2024 Enteric precautions [facility] Start: 09-21-2024 Clostridioides difficile (PCR) Clostridioides difficile (PCR) [facility] Start: 09-04-2024 [facility] Start: 09-04-2024 Tenkiller measurement [facility] Start: 09-02-2024 Procedure [facility] Start: 09-02-2024 [facility] Start: 09-02-2024 Urine culture [facility] Start: 08-26-2024 End: 08-26-2024 ambulatory 08/26/2024 1:00 PM EDT [facility] Patient Outreach Endocrinology [address] [phone] Maria Elena Savage, Business Education Instructor [address] [place] [address] Ways to loose weight with other medical issues. Endocrinology Comment on above: Ways to loose weight with other medical issues. Start: 08-01-2024 End: 08-01-2024 Follow-up encounter 08/01/2024 12:15 PM EDT [facility] Endocrinology [address] [phone] Laura Carson, PhD [address] [place] [address] follow up virtual visit on August 01 at 12:15. Endocrinology Comment on above: follow up virtual visit on August 01 at 12:15. Start: 07-15-2024 End: 07-15-2024 Patient encounter procedure 07/15/2024 10:40 AM EDT Office Visit Endocrinology [address] [place], [place] [phone] Jey Johnson MD [address] [place] [address] 3 MTH F/U-PCOS Endocrinology Comment on above: 3 MTH F/U-PCOS Start: 06-27-2024 End: 06-27-2024 Telemedicine consultation with patient 06/27/2024 10:00 AM EDT Telemedicine [facility] [address] [place] [id number] [place]isson [place] NP [address] [place] [address] [facility] Start: 06-04-2024 Hemoglobin A1c measurement HbA1C [facility] Start: 06-03-2024 Us abdominal real time w/image limited [facility] Start: 06-03-2024 End: 06-03-2024 [facility] Start: 05-16-2024 End: 05-16-2024 ambulatory 05/16/2024 8:40 AM EDT [facility] Endocrinology [address] [place] [address] Huey Cortes DO, PhD [address] [place] [address] ENDOCRINE WEIGHT Endocrinology Comment on above: ENDOCRINE WEIGHT Start: 05-15-2024 [facility] Start: 05-14-2024 End: 05-14-2024 [facility] Start: 05-08-2024 [facility] Start: 04-15-2024 End: 04-15-2024 Patient encounter procedure Endocrinology Comment on above: 3 month f/u 3 month f/u PCOS, me ds Start: 04-09-2024 Hepatitis B surface antibody level LDL Cholesterol [facility] Start: 01-31-2024 End: 01-31-2024 ambulatory 01/31/2024 9:00 AM EST [facility] Endocrinology [address] [place] [address] Carissa Sherwood, RD [address] [address] PCOS (polycystic ovarian syndrome) [E28.2]; Obesity, Class III, BMI 40-49.9 (morbid obesity) (HCC) [E66.01] Endocrinology Comment on above: PCOS (polycystic ovarian syndrome) [E28. 2]; Obesity, Class III, BMI 40-49.9 (morbid obesity) (HCC) [E66.01] Start: 01-25-2024 End: 04-25-2024 Fasting glucose [Mass/volume] in Serum or Plasma GLUCOSE, FASTING Lab Routine PCOS (polycystic ovarian syndrome) Expected: 01/25/2024, Expires: 04/25/2024 [facility] Comment on above: Expected: 01/25/2024, Expires: 5 Start: 01-08-2024 End: 01-08-2024 Patient encounter procedure 01/08/2024 11:40 AM EST Office Visit Endocrinology [address] [place], [place] [phone] Jey Johnson MD [address] [place] [id number] 2 MTH F/U for irregular cycles, hirsutism . Endocrinology Comment on above: 2 MTH F/U for irregular cycles, hirsutis m . Start: 12-20-2023 End: 12-20-2023 Patient encounter procedure 12/20/2023 10:00 AM EDT Office Visit [facility] [address] [place] [phone] Alisson [place] NP [address] [place], [place] [address] [facility] Start: 11-16-2023 End: 02-15-2024 17-Hydroxyprogesterone [Mass/volume] in Serum or Plasma HYDROXYPROGESTERONE-17 Lab Routine Obesity, Class III, BMI 40-49.9 (morbid obesity) (HCC) Expected: 11/16/2023, Expires: 02/15/2024 [facility] Work Phone: Comment on above: Expected: 11/16/2023, Expires: Start: 11-16-2023 End: 02-15-2024 BIOAVAIL TESTO/SHBG, FEM & CHILD BIOAVAIL TESTO/SHBG, FEM & CHILD Lab Routine Obesity, Class III, BMI 40-49.9 (morbid obesity) (HCC) Expected: 11/16/2023, Expires: 02/15/2024 [facility] Comment on above: Expected: 11/16/2023, Expires: Start: 11-16-2023 End: 02-15-2024 Corticotropin [Mass/volume] in Plasma ACTH BLD Lab Routine Obesity, Class III, BMI 40-49.9 (morbid obesity) ([facility]) Expected: 11/16/2023, Expires: 02/15/2024 [facility] Comment on above: Expected: 11/16/2023, Expires: Start: 11-16-2023 End: 02-15-2024 Cortisol [Mass/volume] in Serum or Plasma CORTISOL, SERUM Lab Routine Obesity, Class III, BMI 40-49.9 (morbid obesity) ([facility]) Expected: 11/16/2023, Expires: 02/15/2024 [facility] Comment on above: Expected: 11/16/2023, Expires: Start: 11-16-2023 End: 02-15-2024 DHEA-S BLD DHEA-S BLD Lab Routine Obesity, Class III, BMI 40-49.9 (morbid obesity) ([facility]) Expected: 11/16/2023, Expires: 02/15/2024 [facility] Comment on above: Expected: 11/16/2023, Expires: Start: 11-16-2023 End: 02-15-2024 Estradiol (E2) [Mass/volume] in Serum or Plasma ESTRADIOL-17B BLD Lab Routine Obesity, Class III, BMI 40-49.9 (morbid obesity) ([facility]) Expected: 11/16/2023, Expires: 02/15/2024 [facility] Comment on above: Expected: 11/16/2023, Expires: Start: 11-16-2023 End: 02-15-2024 Follitropin [Units/volume] in Serum or Plasma FOLLICLE STIMULATING HORMONE Lab Routine Obesity, Class III, BMI 40-49.9 (morbid obesity) ([facility]) Expected: 11/16/2023, Expires: 02/15/2024 [facility] Comment on above: Expected: 11/16/2023, Expires: Start: 11-16-2023 End: 02-15-2024 Hemoglobin A1c in Blood HEMOGLOBIN A1C Lab Routine PCOS (polycystic ovarian syndrome) Expected: 11/16/2023, Expires: 02/15/2024 [facility] Comment on above: Expected: 11/16/2023, Expires: Start: 11-16-2023 End: 02-15-2024 Insulin [Units/volume] in Serum or Plasma INSULIN ASSAY BLOOD Lab Routine PCOS (polycystic ovarian syndrome) Expected: 11/16/2023, Expires: 02/15/2024 [facility] Comment on above: Expected: 11/16/2023, Expires: Start: 11-16-2023 End: 02-15-2024 Lutropin [Units/volume] in Serum or Plasma LUTEINIZING HORMONE Lab Routine Obesity, Class III, BMI 40-49.9 (morbid obesity) ([facility]) Expected: 11/16/2023, Expires: 02/15/2024 [facility] Comment on above: Expected: 11/16/2023, Expires: Start: 11-16-2023 End: 02-15-2024 Prolactin [Mass/volume] in Serum or Plasma PROLACTIN Lab Routine Obesity, Class III, BMI 40-49.9 (morbid obesity) ([facility]) Expected: 11/16/2023, Expires: 02/15/2024 [facility] Comment on above: Expected: 11/16/2023, Expires: Start: 11-16-2023 End: 02-15-2024 Thyrotropin [Units/volume] in Serum or Plasma THYROID STIMULATING HORMONE Lab Routine Obesity, Class III, BMI 40-49.9 (morbid obesity) ([facility]) Expected: 11/16/2023, Expires: 02/15/2024 [facility] Comment on above: Expected: 11/16/2023, Expires: Start: 11-16-2023 End: 02-15-2024 Thyroxine (T4) free [Mass/volume] in Serum or Plasma T4 FREE/FREE THYROXINE Lab Routine Obesity, Class III, BMI 40-49.9 (morbid obesity) ([facility]) Expected: 11/16/2023, Expires: 02/15/2024 [facility] Comment on above: Expected: 11/16/2023, Expires: Start: 10-21-2023 Covid-19 Vaccine (3 - 2023-24 season) Covid-19 Vaccine ( season) [facility] Start: 10-21-2023 Covid-19 Vaccine ( season) Covid-19 Vaccine () [facility] Start: 10-21-2023 Influenza vaccination Influenza Vaccine (#1) [facility] Start: 06-03-2023 [facility] Start: 05-08-2023 [facility] Start: 04-08-2023 [facility] Start: 04-07-2023 Referral to service [facility] Start: 04-07-2023 End: 04-07-2023 Suicide precautions [facility] Start: 02-19-2023 Depression Assessment Depression Assessment [facility] Start: 02-06-2023 Liver elastography w/o imag w/i&r LIVER ELASTOGRAPHY [facility] Start: 12-22-2022 Blood chemistry [facility] Start: 12-21-2022 Blood chemistry [facility] Start: 12-20-2022 Patient discharge [facility] Start: 12-19-2022 Admission procedure [facility] Start: 12-19-2022 [facility] Start: 12-18-2022 Assessment of risk of venous thromboembolism [facility] Start: 12-18-2022 [facility] Start: 12-18-2022 Insertion of catheter into peripheral vein [facility] Start: 12-18-2022 Measuring intake and output [facility] Start: 12-18-2022 Providing care according to standard [facility] Start: 12-18-2022 Provision of activity privileges [facility] Start: 12-18-2022 Referral to occupational therapist [facility] Start: 12-18-2022 Referral to service [facility] Start: 12-18-2022 [facility] Start: 12-18-2022 Following clinical pathway protocol [facility] Start: 12-18-2022 Verification routine [facility] Start: 12-18-2022 Admission procedure [facility] Start: 12-18-2022 Hospital admission, emergency, from emergency room, medical nature [facility] Start: 12-18-2022 [facility] Start: 12-18-2022 Consultation [facility] Start: 12-09-2022 End: 12-09-2022 [facility] Start: 10-20-2022 Covid-19 Vaccine ( season) Covid-19 Vaccine ( season) [facility] Start: 10-20-2022 Influenza vaccination Influenza Vaccine (#1) [facility] Start: 09-19-2022 Following clinical pathway protocol [facility] Start: 08-08-2022 Colonoscopy w/biopsy single/multiple COLONOSCOPY AND BIOPSY [facility] Start: 08-08-2022 Egd transoral biopsy single/multiple EGD BIOPSY SINGLE/MULTIPLE [facility] Start: 08-08-2022 Patient discharge [facility] Start: 02-17-2022 Elastase, pancreatic (el-1), fecal; quantitative [facility] Work Phone: Start: 02-17-2022 Protein measurement [facility] Work Phone: Start: 01-24-2022 Enteric precautions [facility] Start: 10-20-2021 Influenza vaccination INFLUENZA (#1) [facility] Start: 09-11-2021 Urine microalbumin profile DTaP,Tdap,Td Vaccine (8 - Td or Tdap) [facility] Start: 09-10-2021 Referral to service [facility] Work Phone: Start: 09-10-2021 Suicide precautions [facility] Work Phone: Start: 08-16-2021 Radiography of ankle Ankle min 3 Views [facility] Work Phone: Start: 08-16-2021 Radiologic examination of knee Knee 1 or 2 Views [facility] Work Phone: Start: 08-16-2021 X-ray of both feet Foot min 3 Views [facility] Work Phone: Start: 08-16-2021 XR Ankle GE 3 Views [facility] Work Phone: Start: 08-16-2021 XR Foot GE 3 Views [facility] Work Phone: Start: 08-16-2021 XR Knee 1 or 2 Views [facility] Work Phone: Start: 04-21-2021 COVID-19 VACCINE (3 - Booster for Pfizer series) COVID-19 VACCINE (3 - Booster for Pfizer series) [facility] Start: 02-19-2021 DEPRESSION ASSESSMENT DEPRESSION ASSESSMENT [facility] Start: 01-16-2021 COVID-19 VACCINE (3 - Booster for Pfizer series) COVID-19 VACCINE (3 - Booster for Pfizer series) [facility] Start: 2017 PAP TESTING PAP TESTING [facility] Start: 2017 Screening for malignant neoplasm of cervix [facility] Start: 08-21-2017 Glaucoma screening Dilated Retinal Exam [facility] Start: 10-25-2015 Pneumococcal vaccination Pneumococcal Vaccine (1 of 2 - PCV) [facility] Start: 10-25-2015 Urine microalbumin profile DTAP,TDAP,TD (1 - Tdap) [facility] Start: 2014 Annual PCP Team Chronic Disease Visit Annual PCP Team Chronic Disease Visit [facility] Start: 2014 Anxiety Screening Anxiety Screening [facility] Start: 2014 BP Controlled (<130/80) BP Controlled (<130/80) [facility] Start: 2014 Depression Screening Depression Screening [facility] Start: 2014 HEPATITIS C SCREENING HEPATITIS C SCREENING [facility] Start: 2014 Hepatitis C screening Hepatitis C Screening [facility] Start: 2014 HIV SCREENING HIV SCREENING [facility] Start: 2014 HIV screening HIV Screening [facility] Start: 2010 PEDS TO ADULT TRANSITION ANNUAL ASSESSMENT PEDS TO ADULT TRANSITION ANNUAL ASSESSMENT [facility] Start: 2008 Adult depression screening assessment DEPRESSION SCREENING [facility] Start: 2008 PEDS TO ADULT TRANSITION INITIAL DISCUSSION PEDS TO ADULT TRANSITION INITIAL DISCUSSION [facility] Start: 10-25-2007 HPV VACCINE (1 - 2-dose series) HPV VACCINE (1 - 2-dose series) [facility] Start: 2006 Diabetic foot examination Diabetic Foot Exam [facility] Start: 2006 Hepatitis B screening Urine Albumin:Creatinine Ratio [facility] Start: 2006 MENINGOCOCCAL B: Consider based on risk (1 of 2 - Risk Bexsero 2-dose series) MENINGOCOCCAL B: Consider based on risk (1 of 2 - Risk Bexsero 2-dose series) [facility] Start: 1996 HEPATITIS B (1 of 3 - 3-dose series) HEPATITIS B (1 of 3 - 3-dose series) [facility] Cardiac event recording [facility] Clostridioides diffi cile DNA [Presence] in Unspecified specimen by DAMARIS with probe detection [facility] Work Phone: Clostridioides diffi cile DNA [Presence] in Unspecified specimen by DAMARIS with probe detection [facility] COVID & INFLUENZA A/ B & RSV PCR, ROUTINE COVID & INFLUENZA A/B & RSV PCR, ROUTINE Microbiology Routine Sore throat URI, acute 01/24/2024 2:45 PM EST [facility] Work Phone: COVID & INFLUENZA A/ B & RSV PCR, ROUTINE COVID & INFLUENZA A/B & RSV PCR, ROUTINE Microbiology Routine Influenza-like illness Ordered: 04/14/2024 [facility] Work Phone: Comment on above: Ordered: 04/14/2024 [facility] and [place] ry arteries W contrast IV [facility] Gastrointestinal pathogens panel - Stool by DAMARIS with probe detection [facility] Work Phone: Hemoglobin A1c/Hemoglobin.total in Blood [facility] Lactoferrin [Presenc e] in Stool by Immunoassay [facility] Work Phone: Liver stiffness by US.transient elastography [facility] MR Abdomen WO and W contrast IV [facility] Ova and Parasites Ova and Parasites [facility] Work Phone: Ova and parasites identified in Unspecified specimen by Light microscopy [facility] Work Phone: Patient Education [facility] Work Phone: Patient referral [facility] Work Phone: Protein measurement [facility] Work Phone: Radionuclide gastric emptying study [facility] Work Phone: Removal impacted cer umen irrigation/lvg unilat AMBULATORY EAR LAVAGE/IRRIGATION Procedures Routine Impacted cerumen of left ear Ordered: 09/13/2023 [facility] Work Phone: Comment on above: Ordered: 09/13/2023 Troponin T.cardiac [Mass/volume] in Serum or Plasma by High sensitivity method [facility] Ultrasound elastography [facility] Work Phone: US Abdomen limited [facility] Work Phone: Immunizations Immunization Date Immunization Notes Care Provider Fa romel 10-31-2020 influenza virus vacc ine, unspecified formulation Louis Schmidt APRN.SERVICE DELIVERY CONSULTANT Work Phone: [facility] Payers Date Payer Category Payer Self-pay [id number] 2020 Medicaid [employer] [id number] 2020-Present [phone] [address] [place] [address] Medicaid [id number] 2020 Medicaid [id number]. [id number] 2019 Private Health Insurance 2019 Medicaid [id number] 2016 Private Health Insurance [id number] 1996 Unknown [id number] 04.06.830.1.751775.3.579.2. 627 1996 Unknown [id number] 2.16840.1.264247.3.579.2. 903 1996 Unknown [id number] 2.840.1.658057.3.579.2. 1259 1996 Unknown [id number] 04.06.830.1.188251.3.579.2. 1259 Unknown [id number] Unknown [id number] 2.16.840.1.880072.3.579.2. 462 Unknown [id number] 2.16.840.1.271674.3.579.2. 462 Unknown [id number] 2.16.840.1.476267.3.579.2. 462 Unknown [id number] 2.16.840.1.431008.3.579.2. 462 Unknown [id number] 2.16.840.1.083000.3.579.2. 462 Unknown [id number] 2.16.840.1.399679.3.579.2. 462 Unknown [id number] 2.840.1.636573.3.579.2. 462 Unknown [id number] 2.840.1.138020.3.579.2. 462 Unknown [id number] 2.840.1.577501.3.579.2. 462 Unknown [id number] 2.840.1.443319.3.579.2. 462 Unknown [id number] 2..840.1.353059.3.579.2. 462 Unknown [id number] 2..840.1.834831.3.579.2. 462 Unknown [id number] 2.840.1.516506.3.579.2. 462 Unknown [id number] 2.840.1.800327.3.579.2. 462 Unknown [id number] 2.840.1.991348.3.579.2. 462 Unknown [id number] 2.16.840.1.625458.3.579.2. 462 Unknown [id number] 2.16.840.1.897588.3.579.2. 462 Unknown [id number] 2.16.840.1.904229.3.579.2. 462 Unknown [id number] 2.840.1.024871.3.579.2. 462 Unknown [id number] 2.16.840.1.767668.3.579.2. 462 Unknown [id number] 2.16.840.1.465830.3.579.2. 462 Unknown [id number] 2.16.840.1.937438.3.579.2. 462 Unknown [id number] 2.16.840.1.830624.3.579.2. 462 Unknown [id number] 2.16.840.1.751340.3.579.2. 462 Unknown [id number] 2.16.840.1.866149.3.579.2. 462 Unknown [id number] 2.16.840.1.893809.3.579.2. 462 Unknown [id number] 2.16.840.1.366774.3.579.2. 462 Unknown [id number] 2.16.840.1.758507.3.579.2. 462 Unknown [id number] 2.16.840.1.230072.3.579.2. 462 Unknown [id number] 2.16.840.1.707605.3.579.2. 462 Unknown [id number] 2.16.840.1.269043.3.579.2. 462 Unknown [id number] 2.16.840.1.946021.3.579.2. 462 Unknown [id number] 2.16.840.1.381627.3.579.2. 462 Unknown [id number] 2.16.840.1.856316.3.579.2. 462 Unknown [id number] 2.16.840.1.814067.3.579.2. 462 Unknown [id number] 2.16.840.1.093694.3.579.2. 462 Social History Date Type Detail Facility Start: 08-21-2016 End: 11-18-2024 Never smoked tobacco (finding) [facility]igned At [facility] Start: 02-03-2021 End: 01-30-2023 Tobacco smoking status NHIS Unknown if ever smoked [facility] Start: 05-27-2020 With Family [facility] Start: 09-22-2020 Non-smoker [facility] Start: 1995 Sex Assigned At Female [facility] Start: 08-21-2016 End: 01-08-2024 Tobacco use and exposure Smokeless tobacco non-user [facility] Start: 10-13-2020 End: 10-16-2024 Alcohol intake Current non-drinker of alcohol (finding) [facility] Start: 1995 Sex Assigned At Not on file [facility] Start: 12-08-2019 End: 09-03-2021 Exposure to SARS-CoV-2 (event) Not sure [facility] Start: 12-12-2021 End: 10-26-2023 History of Social function [facility] Start: 12-12-2021 End: 10-26-2023 Tobacco use panel [facility] Start: 04-03-2016 National Score (1-100), lower number is lower risk Not on file [facility] Start: 07-30-2022 End: 12-31-2023 Alcoholic beverage intake Current drinker of alcohol (finding) [facility] Start: 07-30-2022 Alcohol Comment Alcohol: 1-2 drinks/monthly or less. caffeine: 3-4 cups/day [facility] Start: 05-02-2024 End: 06-05-2024 Sex Female (finding) [facility] Start: 05-30-2024 Gender identity Identifies as female gender (finding) [facility] Start: 05-30-2024 Sexual orientation Heterosexual (cait black) [facility] NEGATED: Highlighted row [facility] NEGATED: Highlighted rowStart: NINF History of tobacco use Passive smoker [facility] Medical Equipment Procedure Code Equipment Code Equipment Origin al Text Equipment Identifier Dates Start: 08-15-2023 End: 07-15-2024 Goals Date Patient Goal Desired Activity /State Functional Status Date Assessment Result Facility 12-20-2022 Functional status Ambulates [facility] Work Phone: 09-19-2022 Functional status Ambulates [facility] Work Phone: Mental Status Date Assessment Result Facility 11-18-2024 Cognitive function Awake [facility] Work Phone: 10-27-2024 Cognitive function Light Pain [facility] Work Phone: 09-04-2024 Cognitive function Awake;Alert;A ppropriate;Follow s [facility] Work Phone: 06-03-2024 Cognitive function Voice/Name [facility] Work Phone: 05-14-2024 Cognitive function Awake;Alert;A ppropriate;Follow s [facility] Work Phone: 05-08-2023 Cognitive function Level Of Cons ciousness Awake;Alert;Appropriate [facility] Work Phone: 12-20-2022 Cognitive function Voice/Name [facility] Work Phone: 12-18-2022 Cognitive function Level Of Cons ciousness Awake;Alert;Follows [facility] Work Phone: 11-22-2022 Cognitive function Level Of Cons ciousness Awake;Alert;Appropriate;Follow s [facility] Work Phone: 09-19-2022 Cognitive function Voice/Name [facility] Work Phone: 08-08-2022 Cognitive function Touch/Shaking [facility] Work Phone: 08-08-2022 Cognitive function Patient Orien tation Person;Place;Time [facility] Work Phone: 01-15-2022 Cognitive function Level Of Cons ciousness Awake;Alert;Appropriate;Follow s [facility] Work Phone: 08-29-2021 Cognitive function Level Of Cons ciousness Awake;Alert;Appropriate;Follow s [facility] Work Phone: Clinical Notes 01-07-2020 to 12-22-2024 Note Date & Type Note Facility 12-22-2024 Note HNO ID: [id number] Author: LAURA CARSON, PhD Service: ? Author Type: Psychologist Type: Progress Notes Filed: 12/22/2024 11:53 Note Text: [facility] DEPARTMENT OF ENDOCRINOLOGY Progress Note December 22, 2024 BILLING CODE:Leonid CPT Code: .3558328 Virtual PSYTX PT AND/FAMILY 30 MINS Time initiated session: 10:35 AM to 11:00 PM Date of First Session: 06/02/24 (initial evaluation) Session #: 4 Collateral Parties Present: none. Virtual Visit yes I have communicated my name and active licensure. If seen remotely, The patient's identity and physical location were verified at the time of this visit. Either the patient or their legal patient admitting representative has been informed of the risks [...] entire bag). 2:00 remainder of chips and/or Azerbaijani cucumbers and hummus 4:30-5:30 Beef Stroganoff, meatloaf [...] Reported? yes Seeing RD at [facility] in December EXERCISE/PHYSICAL ACTIVITY I've been passing out a lot. Blood pressure has been dropping and she is working with bible reader. Pt sees neurologist in December. MENTAL HEALTH [...] a day. polyet (more content not 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 [facility] 11-28-2024 Progress note Note Date/Time November 28, 2024 2:03pm [facility] [address] [place] [address] OFFICE VISIT Date of Service: 11/28/24 MR#: [id number] Acct: [id number] Name: MARION GUTIERREZ Rep #: [id number] : 1995 Provider: HORTENSIA Ramires Age/Sex: 29/F Location: [facility] Status: Signed HPI HPI History of Present [...] 98 98 Intake Visit Reasons: Dizziness (cardiology) Transplant Rn Required: No Is patient in pain?: No [...] 441 mg/1.6 441 mg IM .Q28 DAYS [facility] 12/18/22 11/28/24 History mL suspension, ext.rel. IM [...] 09/04/24 1 History estradiol 0.035 mg tablet (Frio-Linyah) rizatriptan 10 mg tablet 10 mg PO [...] (Reviewed 11/30/24 @ 17:46 by Shawanda Ramires [employer], [employer]) Dietary restriction Shortness of breath on exertion [...] (Reviewed 11/30/24 @ 17:46 by Shawanda Ramires [employer] DES[employer], [employer]-C) History of colonoscopy History of esophagogastroduodenoscopy (EGD) History of tonsillectomy and adenoidectomy H/O knee surgery H/O spinal fusion Family History Mother Uterine cancer Other Asthma Depression Diabetes GERD (gastroesophageal reflux disease) Heart disease Hyperlipidemia Hypertension Social History (Reviewed 11/30/24 @ 17:46 by Shawanda Ramires [employer] DES[employer], [employer]-C) household members: none housing: apartment current occupational [...] - Palpitations, R55 - Syncope and collapse [facility] 11/28/24 HORTENSIA Montalvo NP R00.2 - Palpitations, [...] Yes Cardiac Ejection fraction %: 60 11/30/24 2682 <Electronically signed by Shawanda BAZAN> Date _ Shawanda BAZAN Cosigner Signature: Date (if applicable) CC: Karuna BAZAN Beam ~ [place] [facility] [employer] Work Phone: 1(434) 970-300310-07-2025 NoteHNO ID: [id number] Author: MARIA ELENA SAVAGE, Business Education Instructor Service: ? Author Type: Business Education Instructor Type: Progress Notes Filed: 11/25/2024 13:51 Note [...] up 2 of 3 02/05/2025 at 11:00am [phone]25 Discharge summary Author Mau [facility] Note Date/Time November 18, 2024 6:08pm [facility] Medical Records Department [address] [place] [address] Emergency Department Summary 11/18/24 MR#: [id number] Acct: [id number] Name: MARION GUTIERREZ Rep #:[id number] : 1995 29 From: Mau Smallwood MD PCP: Karuna Lim [employer] Status:REG ER Location: ED HPI History of [...] Prior similar symptoms: Yes Recent Illness/Hospitalization: Yes [facility] Medical History Dietary restriction Shortness of breath [...] mg/1.6 441 mg IM .Q28 DAYS [facility] 12/18/22 09/24/24 History mL suspension, ext.rel. IM [...] U nknown History estradiol 0.035 mg tablet (Frio-Linyah) rizatriptan 10 mg tablet 10 mg PO [...] (Auto) 71.2 H Lymph % (Auto) 20.8 Frio % (Auto) 6.2 Eos % (Auto) 1.0 [...] 3.4 L Globulin 3.1 Albumin/Globulin Ratio 1.1 [facility] 0.71 POC Glucose 88 Treatment and Re-Evaluation [...] abdominal pain) Qty: 30 0RF norgestimate-ethinyl estradiol [Frio-Linyah] 0.25-0.035 mg tablet 1 tab PO DAILY [...] Qty: 30 11RF Primary Care Provider: Karuna Lim Referrals: Karuna Lim, [employer] [Primary Care Provider, Family Practice] - 1 Week Print Language: Azerbaijani Disposition Disposition: Home, Self Care What to do if you have Problems For any increased pain, shortness of breath, bleeding, nausea or vomiting, chestpain, or any unexpected problems, contact your Primary Care Provider. Call [facility] ([phone]) or report to the closest Emergency Room. Call 911 if necessary. 11/18/24 1808 <Electronically signed by Mau Smallwood MD> Cosigner Signature (if applicable): CC: Karuna MCBRIDE [employer] Carina ~ Signed [facility] Work Phone: 1(604) 694-538409-18-2025 Procedure [facility] 10-27-2024 History and physical note Author [facility] Note Date/Time October 27, 2024 9:54am [facility] Medical Records Department [address] [place] [address] History & Physical Exam 10/27/24 0953 MR#: [id number] Acct: [id number] Name: MARION GUTIERREZ Rep #:[id number] : 1995 29 From: Andreas Oliva DO PCP: Karuna Lim [employer] Status:REG [facility] Location: [place] [address] HPI - General General Date of Admission: 10/27/24 Date of Service: 10/27/24 Chief Complaint: diarrhea HPI Narrative MARION GUTIERREZ, is a 29 F who presents MARION GUTIERREZ, is a 28 F who presents to the office today for follow up. PMH autism, bipolar type 1, PCOS [facility] ED on multiple occasions over the [...] hemorrhoids without visual abnormality. Without pathologic changes. [facility] ED visits continue as noted above. US RUQ 10.. abd pain hepatomegaly 19cm with fatty infiltration. US ABD 11.30.21 abd pain hepatomegaly 20.2cm with fatty infiltration; splenomegaly. No ascites. Biochemical workup T3, T4, CBC, CMP, TIBC, iron, ferritin, copper, zinc,selenium without pertinent abnormality. ? TSH H4.91 [facility] ED visit prompting referral 01.24.22 with [...] TSH H4.77; T4WNL. *BGI established 02.15.22 following [facility] ED presentation. Marion has had multipleED [...] cramping and then hard stools. Continues with [id number] QD. OV 07.10.23 pt reports that she [...] the liver. 2. Other findings as noted. [facility] ED 7 pt presents with syncope [facility] ED 8 pt present with N/V/D OV 09.25.24 Pt reports that her symptoms from ER visit continue. Started having diarrhea on Sunday, states stool has been straight acid for the past three days. Reports she has been unable to keep anything down. Colonoscopy is scheduled for 10.27.24 [facility] Medical History Dietary restriction Shortness of breath [...] 441 mg/1.6 441 mg IM .Q28 DAYS [facility] 12/18/22 09/24/24 History mL suspension, ext.rel. IM [...] U nknown History estradiol 0.035 mg tablet (Frio-Linyah) rizatriptan 10 mg tablet 10 mg PO [...] very [place] since sugar. I called her sample wrapper and she is okay with abnormal GLP-1 [...] and carbohydrates. She does have anappointment with sample wrapper. 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 Procedure Code(s): --- Professional --- 69517, Colonoscopy, flexible; with biopsy, single or multiple CPT copyright 2021 [employer]. All rights reserved. The codes documented in this report are preliminary and upon temperature regulator review may be revised to meet current compliance requirements. Andreas Oliva DO 10/27/2024 11:15:36 AM This report has been signed electronically. Number of Addenda: 0 Note Initiated On: 10/27/2024 10:34 AM 10/27/24 1115 Date _ Andreas Oliva DO Cosigner Signature: Date (if indicated) CC: Andreas Oliva DO; Karuna BAZAN Beam ~ Date Dictated: 10/27/24 1034 Date Transcribed: Angle Roll Operator: SKY [facility]igned [facility]09[facility]08[facility]2025 Procedure note [facility] Medical Records Department [facility] [place] [address] Provation Physician Letter MR#: [id number] Acct: [id number] Name: MARION GUTIERREZ Rep #:[id number] : 1995 29 From: Andreas Oliva DO PCP: Karuna Lim [employer] Status:REG [facility] 10/27/2024 Karuna Lim Report Clerk, Report Clerk-c Re : Colonoscopy procedure for Marion Gutierrez [...] indicated) CC: Andreas Oliva DO; Karuna MCBRIDE [employer] Beam ~ Date Dictated: 10/27/24 1034 Date Transcribed: Angle Roll Operator: SKY [facility]igned [facility]09[facility]08[facility]2025 Consult note [facility] Medical Records Department [address] [place] [address] Anesthesia Postop Eval I 10/27/24 1114 MR#: [id number] Acct: [id number] Name: MARION GUTIERREZ Rep #:[id number] : 1995 29 From: Collin Lin PCP: Karuna Lim [facility] [employer] DES[employer]-C Status:REG SD Y Race: C Location: [place] [address] Anesthesia: Postop Eval I Current Vital Signs [...] Lin Cosigner Signature: Date CC: ~ Signed [facility]09[facility]08[facility]2025 Consult note [facility] Medical Records Department [address] [place] [address] Pre-Anesthesia Evaluation 10/27/24 1043 MR#: [id number] Acct: [id number] Name: MARION GUTIERREZ Rep #:[id number] : 1995 29 From: Moe Masterson PCP: Karuna Lim [facility] [employer] DES[employer]-C Status:REG SD Y Race: C Location: [place] [address] ASA Classification* ASA Classification ASA Classification: 3 [...] Procedure(s): CSCOPE Anesthesia History Anesthesia History - environmental specialist: Anesthesia History - environmental specialist Hx Hospitalization No 10/24/24 10:50 Any Problems [...] take am of surgery PONV PONV - environmental specialist: PONV - environmental specialist Female Yes 10/24/24 10:50 HX of Motion [...] 10/27/24 10:07 Respiratory Assessment Respiratory Assessment - environmental specialist: Respiratory Tract Infection Hx - environmental specialist Hx Respiratory Tract Infection No 10/24/24 10:50 STOP Sleep Apnea STOP Sleep Apnea - environmental specialist: STOP Sleep Apnea - environmental specialist Hx Hypertension Yes: CONTROLLED WITH MED 10/24/24 [...] Tobacco Use History Tobacco Use History - environmental specialist: Tobacco Use History - environmental specialist Tobacco Use Non-smoker 07/10/23 09:36 Smoking Status Never smoker 10/24/24 10:50 Hx Tobacco Use No 10/24/24 10:50 Years Smoking Packs Smoked per Day Smoking Cessation Date was within the last 15 years Hx Smoking Cessation Date Hx Smoking Cessation Counseling Hematologic Medial History Hematologic Hx - environmental specialist: Hematologic Medical Hx - manager documentation Hx of Blood Transfusion No 10/24/24 10:50 [...] confused, unrespo /Reproduction History /Reproductive History - environmental specialist: /Reproductive Hx- environmental specialist Hx Now No 10/24/24 10:50 Gestational Age [...] mg/1.6 441 mg IM .Q28 DAYS [facility] 12/18/22 09/24/24 History mL suspension, ext.rel. IM [...] U nknown History estradiol 0.035 mg tablet (Frio-Linyah) rizatriptan 10 mg tablet 10 mg PO [...] MD Cosigner Signature: Date CC: ~ Signed [facility]09[facility]2025 History and physical note [facility] Medical Records Department [address] [place] [address] History & Physical Exam 10/27/24 0953 MR#: [id number] Acct: [id number] Name: MARION GUTIERREZ Rep #:[id number] : 1995 29 From: Andreas Oliva DO PCP: Karuna Lim Kimi [employer] DES[employer]-C Status:[facility] Location: [place] [address] HPI - General General Date of Admission: 10/27/24 Date of Service: 10/27/24 Chief Complaint: diarrhea HPI Narrative MARION GUTIERREZ, is a 29 F who presents MARION GUTIERREZ is a 28 F who presents to the office today for follow up. PMH autism, bipolar type 1, PCOS [facility] ED on multiple occasions over the [...] hemorrhoids without visual abnormality. Without pathologic changes. [facility] ED visits continue as noted above. US RUQ 10.8.21 abd pain hepatomegaly 19cm with fatty infiltration. US ABD 11.30.21 abd pain hepatomegaly 20.2cm with fatty infiltration; splenomegaly. No ascites. Biochemical workup T3, T4, CBC, CMP, TIBC, iron, ferritin, copper, zinc,selenium without pertinent abnormality. ? TSH H4.91 [facility] ED visit prompting referral 01.24.22 with [...] TSH H4.77; T4WNL. *BGI established 02.15.22 following [facility] ED presentation. Marion has had multipleED [...] cramping and then hard stools. Continues with oiylkxclhs4ds QD. OV 07.10.23 pt reports that she [...] is worried her iron could be low. [facility] MRI 08.07.24 1. There is fatty liver infiltration. There are no focal abnormality seen within the liver. 2. Other findings as noted. [facility] ED 7 pt presents with syncope [facility] ED 8.3.25 pt present with N/V/D OV 8.7.25 Pt reports that her symptoms from ER visit continue. Started having diarrhea on Sunday, states stool has been straight acid for the past three days. Reports she has been unable to keep anything down. Colonoscopy is scheduled for 10.27.24 [facility] Medical History Dietary restriction Shortness of breath [...] 441 mg/1.6 441 mg IM .Q28 DAYS [facility] 12/18/22 09/24/24 History mL suspension, ext.rel. IM syringe ([place]) cholecalciferol (vitamin D3) 25 25 mcg PO DAILY vitami n 12/18/22 09/26/24 History mcg (1,000 unit) tablet (Vitamin D3) imipramine HCl 25 mg tablet 25 mg PO DAILY [facility] 12/18/22 09/26/24 History pantoprazole 40 mg tablet,delayed [...] U nknown History estradiol 0.035 mg tablet (Frio-Linyah) rizatriptan 10 mg tablet 10 mg PO [...] a very [place] since sugar. Icalled her sample wrapper and she is okay with abnormal GLP-1 [...] She said she will address it with sample wrapper but does not want to see a [...] colonoscopy had a very poor prep. 10/27/24 3260 Cosigner Signature (if applicable): CC: Andreas Oliva, DO; Karuna [facility] [employer] Beam~ Signed [facility]09-08-2025 [facility]08-28-2025 Instructions* Patient Instructions* Jey Johnson MD - 10/16/2024 10:42 AM EDT Continue control pills as is documented in this encounterTrihealth08-28-2025 NoteHNO ID: [id number] Author: JEY JOHNSON MD Service: ? Author Type: Physician Type: Progress Notes Filed: 10/19/2024 17:36 Note Text: Endocrinology and Metabolism [place] Follow up note Chief complaint: Evaluation of [...] She is seeing GI, Dr. Oliva at [facility], with recommendations for possible initiation of GLP-1 [...] Reactions Ondansetron Anaphylaxis, O (more content not 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[facility]08-28-2025 History of Present illness Narrative* Jey Johnson MD - 10/16/2024 10:25 AM EDT Endocrinology and Metabolism [place] Follow up note Chief complaint: Evaluation of [...] She is seeing GI, Dr. Oliva at [facility], with recommendations for possible initiation of GLP-1 [...] 07-23-2023 CORTISOL,F/24hr 46 ug/24 hr High 6-42 [facility] CORTISOL,U FREE 16 ug/L Normal [facility] Metanephrine Frac 24 HR UR on 07-23-2023 Metaneph,UR 24H 68 ug/24 hr Normal 36-209 [facility] Metanephrines,U 24 ug/L Normal Undefined [facility] Normetan,UR 24h 522 ug/24 hr High 95-449 [facility] Normetanephrine 183 ug/L Normal Undefined [facility] Catecholamines, 24 UR on 07-20-2023 Dopamine, Urine 580 ug/L Normal [facility] Dopamine,U,24HR 957 ug/24 hr High 0-510 [facility] Epineph.,U,24HR 5 ug/24 hr Normal 0-20 [facility] Epinephrine, U 3 ug/L Normal Undefined [facility] Norepin.,U,24HR 134 ug/24 hr Normal 0-135 [facility] Comment on above: Order Comment: Test(s) 914196-Prcbmhcglsa, Urine; - Norepinephrine, Ur; [id number]-Livqapsx, Urinewas developed and its performance characteristicsdetermined by [facility]. It has notbeen cleared or approvedby the Food and Drug Administration. Performed By: #### L3600.0150 ####[facility] [address], [place],[address] Norepinephrin,U 81 ug/L Normal [facility] Adrenocorticotropic Hormone on 07-17-2023 ACTH 9.7 pg/mL Normal 7.2-63.3 [facility] CORTISOL SERUM on 07-17-2023 CORTISOL 20.10 ug/dL Normal 3.44-22.45 [facility] Catecholamines, Plasma on 07-17-2023 DOPAMINE <30 Normal 0-48 [facility] EPINEPHRINE <15 Normal 0-62 [facility] NOREPINEPHRINE 429 pg/mL Normal 0-874 [facility] Gastrin, Serum on 07-17-2023 GASTRIN 265 pg/mL High 0-115 [facility] Insulin Level on 07-17-2023 INSULIN,FASTING 93.7 uIU/mL High 2.6-24.9 [facility] Insulin Like Growth Factor on 07-17-2023 SOMATOMEDIN C 122 ng/mL Normal 91-308 [facility] Chromogranin A 206.0 ng/mL Abnormal 0.0-101.8 [facility] Renin/Aldosterone Activity on 07-17-2023 ALD/RENIN RATIO 11.6 Normal 0.0-30.0 [facility] Performed By: #### L3400.1350, L3300.3500, L3300.1800, L3430.0100, L3300.1000, L3300.1050, L3100.4810 ####[facility] [address] [place], [address] ALDOSTERONE,S 45.0 ng/dL High 0.0-30.0 [facility] RENIN, PLASMA 3.873 ng/mL/hr Normal 0.167-5.380 [facility] BUN/CRE 18.1 RATIO Normal 10-20 [facility] CA,Total 9.0 mg/dL Normal 8.5-10.1 [facility] Chloride [Moles/Vol] 110 mmol/L High 98-107 [facility] CO2 [Moles/Vol] 25.0 mmol/L Normal 21.0-32.0 [facility] Creatinine [Mass/Vol] 0.66 mg/dL Normal 0.55-1.02 [facility] Performed By: #### L100.0100, L500.4050, L506.1000, L501.52200, L501.9520, L506.0400, L501.9060 ####[facility] [address] [place], [address] EST GFR - AA 138 mL/min Normal >60 [facility] Performed By: #### L100.0100, L500.4050, L506.1000, L501.15633, L501.9520, L506.0400, L501.9060 ####[facility] [address] [place], [address] GAP 3 Low 5-15 [facility] GFR/1.73 sq M.predicted among non-blacks MDRD (S/P/Bld) [Vol rate/Area] 114 mL/min/(1.73_m2) Normal>60 [facility] Globulin (S) [Mass/Vol] 3.8 g/dL Normal 2.2-4.2 [facility] Glucose [Mass/Vol] 124 mg/dL High 74-106 [facility] Performed By: #### L100.0100, L500.4050, L506.1000, L501.31728, L501.9520, L506.0400, L501.9060 ####[facility] [address] [place], [address] Potassium [Moles/Vol] 4.0 mmol/L Normal 3.5-5.1 [facility] Sodium [Moles/Vol] 138 mmol/L Normal 136-145 [facility] T PROT 7.0 g/dL Normal 6.4-8.2 [facility] Urea nitrogen [Mass/Vol] 12 mg/dL Normal 7-18 [facility] Free T3 on 07-05-2023 Free T3 [Mass/Vol] 2.4 pg/mL Normal 2.18-3.98 [facility] Comment on above: Performed By: #### L100.0100, L500.4050, L506.1000, L501.13473, L501.9520, L506.0400, L501.9060 ####[facility] [address] [place], [address] [place] on 07-05-2023 LI 0.80 mmol/L Normal 0.60-1.20 [facility] T4 Free Direct on 07-05-2023 T4 FREE DIRECT 1.04 ng/dL Normal 0.76-1.46 [facility] Comment on above: Performed By: #### L100.0100, L500.4050, L506.1000, L501.35558, L501.9520, L506.0400, L501.9060 ####[facility] [address] [place], [address] Thyroid Stim Hormone (TSH) on 07-05-2023 TSH 2.10 uIU/mL Normal 0.358-3.74 [facility] Vitamin D,25 Hydroxy on 07-05-2023 Vitamin D 25-OH 30.3 ng/mL Normal [facility] Latest Ref Rng 12/05/2023 Sex [...] which included preparing to see the patient, lqbv-ul-cgyo patient care, completing clinical documentation, obtaining and/or reviewing separately obtained history, performing a medically appropriate examination, and independently interpreting r esults (not separately reported). Medical Decision Making: Problems: Moderate: 2+ stable chronic illnesses Risk: Low: Low risk from testing/treatment Medical Decision Making Level: 3 - Low Jey Johnson MD Endocrinology Associate Staff [facility] Endocrinology and Metabolism [place] [phone] documented in this encounterTrihealth08-27-2025 NoteHNO ID: [id number] Author: LAURA CARSON, PhD Service: ? Author Type: Psychologist Type: Progress Notes Filed: 10/15/2024 14:11 Note Text: [facility] DEPARTMENT OF ENDOCRINOLOGY Progress Note October 15, 2024 BILLING CODE:Leonid CPT Code: 9872998 Virtual PSYTX PT AND/FAMILY 45 MINS Time initiated session: 1:15 PM to 2:00 PM Date of First Session: 06/02/24 (initial evaluation) Session #: 3 Collateral Parties Present: none. Virtual Visit yes I have communicated my name and active licensure. If seen remotely, The patient's identity and physical location were verified at the time of this visit. Either the patient or their legal patient admitting representative has been informed of the risks and benefits of -- and alternatives to -- treatment through a remote evaluation and consents to proceed with the evaluation remotely. REASON FOR VISIT Psychological Factors Affecting Morbid Obesity RECENT EVENTS/LIFE CHANGES Psychiatric hospitalization Severe diarrhea Blood sugar fluctuations Upcoming colonoscopy Visit with Head Grease Maker EATING All over the place. Stated blood [...] breaded chicken, non breaded pork, yellow squash, Azerbaijani cucumbers and hummus. Many years ago she [...] getting up to urinate. [facility] and said she didn't want to [...] changes in psychiatric medications when hospitalized at [facility] Patient Data Binge Eating Scale (BES) [...] capsule Take 600 (more content not 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 [facility]08-27-2025 History of Present illness Narrative* Laura Carson, PhD - 10/15/2024 1:04 PM EDT Images from the original note were not included. [facility] DEPARTMENT OF ENDOCRINOLOGY Progress Note October 15, 2024 BILLING CODE:Leonid CPT Code: 0588537 Virtual PSYTX PT &/FAMILY 45 MINS Time initiated session: 1:15 PM to 2:00 PM Date of First Session: 06/02/24 (initial evaluation) Session #: 3 Collateral Parties Present: none. Virtual Visit yes I have communicated my name and active licensure. If seen remotely, The patient's identity and physical location were verified at the time of this visit. Either the patient or their legal patient admitting representative has been informed of the risks and benefits of -- and alternatives to -- treatment through a remote evaluation and consents to proceed with the evaluation remotely. REASON FOR VISIT Psychological Factors Affecting Morbid Obesity RECENT EVENTS/LIFE CHANGES Psychiatric hospitalization Severe diarrhea Blood sugar fluctuations Upcoming colonoscopy Visit with Head Grease Maker EATING All over the place. Stated blood [...] breaded chicken, non breaded pork, yellow squash, Azerbaijani cucumbers and hummus. Many years ago she [...] getting up to urinate. Pt went to [facility] and said she didn't want to live because she was having so much difficulty tolerating foods. She was hungry but couldn't tolerate foods - fecal incontinence. Joycelyn Sebastianhoxie x 4 days 09/29/24. The stay was interesting. Affect is: appropriate Seeing therapist 1-2 times per month - Therapist will leave agency in December Psychiatrist - will see again next week. Psychiatrist is also leaving agency. Patient denies any suicidal or homicidal ideation, plan or intent at this time. Medication Changes: Denies changes in psychiatric medications when hospitalized at [facility] Patient Data Binge Eating Scale (BES) [...] Laura Carson, PhD Psychologist documented in this encounterTrihealth08-14-2025 Instructions* Patient Instructions* Edilma, Maria Elena, Business Education Instructor - 10/02/2024 2:02 PM EDT Initial Exercise [...] calories to maintain your weight. Hydration Hacks: https://www.everydayhealth.com/dehydration/zitjfsqgy-egkfo-ngtj-bcdc-ujw-bsqsk-m ore-water/ H2O Recommendations: https://www.medicalnewstoday.com/articles/823552#during-exercise\ Videos: 9-minute HIIT Workout For Beginners to Start Your Fitness Journey- this video seems like a great beginner one!! https://www.The Halo Groupube.com/watch?v=tGZn6ykQyYV 10 MIN FULL BODY SWEAT SESH (no jumping, no equipment) https://www.[employer] Halo Groupube.com/watch?v=MLvyBSWQ4vU MOOD BOOSTING HIIT WORKOUT (10 MIN) - All Standing Exercises https://www.The Halo Groupube.com/watch?s=qHoy795G11B BEST 15 Min TOTAL BEGINNER Workout for Fat Burning - No Equipment, No Jumping growwithjo https://www.[employer] Halo [employer].com/watch?v=w0Igp02TdJq Fun 15 minute low impact no equipment cardio/resistance home workout https://www.[employer].com/watch?v=QNAOIXhNRJs&t=20s 15 MIN STANDING CARDIO FOR WEIGHT LOSS (No Equipment) https://www.[employer].com/watch?v=qa99tUQnDYJ Channel: Body Project https://www.[employer].com/@BodyProjectchallenge Grow with Gabriella: This channel is great! A lot of high energy workouts- feel free to look at the channel and pick which ones interest you the most! https://www.[employer].com/c/growwithjo/videos HASfit https://www.[employer].com/@HASfit POPSUGAR Fitness- this one is very popular! It is nice because most videos have 3 people- one completing the move, one doing modifications, and one doing advanced! https://www.Synerscope.com/@PS_Fit Please do not hesitate to reach out with any questions! [phone] Next follow up- 11/25/2024 at 2:00pm Remember to stay hydrated!! documented in this encounterTrihealth08-14-2025 NoteHNO ID: [id number] Author: MARIA ELENA SAVAGE Business Education Instructor Service: ? Author Type: Business Education Instructor Type: Progress Notes Filed: 10/02/2024 14:35 Note Text: Virtual Visit (Audio/Visual)I have discussed the nature of this visit with the patient which will occur via [facility] (Phone, Virtual Visit) and she agrees to proceed with this interaction. Please do not hesitate to reach out with any questions! [phone] Next follow up- 11/25/2024 at 2:00pm Remember to stay hydrated!![facility]08-14-2025 History of Present illness Narrative* Maria Elena Savage Business Education Instructor - 10/02/2024 1:46 PM EDT Virtual Visit (Audio/Visual)I have discussed the nature of this visit with the patient which will occur via [facility] (Phone, Virtual Visit) and she agrees to proceed with this interaction. Please do not hesitate to reach out with any questions! [phone] Next follow up- 11/25/2024 at 2:00pm Remember to stay hydrated!! documented in this encounterTrihealth08-09-2025 Discharge summary Author Mazin Wilkinson [facility] Note Date/Time September 27, 2024 3:1 9pm [facility] Medical Records Department [address] [place] [address] Emergency Department Summary 09/27/24 MR#: [id number] Acct: [id number] Name: MARION GUTIERREZ Rep #:[id number] : 1995 28 From: Mazin Wilkinson MD PCP: Karuna Lim [employer]EDDING CAKE DESIGNER-C Status:REG ER Location: ED HPI HPI - [...] 441 mg/1.6 441 mg IM .COMPLEX [facility] 12/18/22 10/23/23 History mL suspension, ext.rel. [...] U nknown History estradiol 0.035 mg tablet (Frio-Linyah) rizatriptan 10 mg tablet 10 mg PO [...] % (Auto) 64.2 Lymph % (Auto) 24.2 Frio % (Auto) 9.3 Eos % (Auto) 1.4 [...] tablet 25 mg PO DAILY norgestimate-ethinyl estradiol [Frio-Linyah] 0.25-0.035 mg tablet 1 tab PO DAILY [...] Care Provider: Karuna Lim Referrals: Karuna Lim, WEDDING CAKE DESIGNER-C [Primary Care Provider] - Print Language: Azerbaijani Disposition Disposition: Psychiatric Hospital or Unit What to do if you have Problems For any increased pain, shortness of breath, bleeding, nausea or vomiting, chestpain, or any unexpected problems, contact your Primary Care Provider. Call [facility] ([phone]) or report to the closest Emergency Room. Call 911 if necessary. 09/27/24 1519 <Electronically signed by Mazin Wilkinson MD> Cosigner Signature (if applicable): CC: Karuna MCBRIDE [employer]ING CAKE DESIGNER-C Carina ~ Signed [facility] Work Phone: 1(904) 204-338308-09-2025 Discharge summary [facility] Medical Records Department [address] [place] [address] Emergency Department Summary 09/27/24 MR#: [id number] Acct: [id number] Name: MARION GUTIERREZ Rep #:[id number] : 1995 28 From: Mazin Wilkinson MD PCP: Karuna Lim W[employer]DING CAKE DESIGNER-C Status:REG ER Location: ED HPI HPI - [...] similar symptoms: Yes Recent Illness/Hospitalization: No PFSH [facility] Medical History Alcohol use Picking own skin [...] mg/1.6 441 mg IM .COMPLEX [facility] 12/18/22 10/23/23 History mL suspension, ext.rel. [...] U nknown History estradiol 0.035 mg tablet (Frio-Linyah) rizatriptan 10 mg tablet 10 mg PO [...] a psychiatric admission. As does her mother. [facility] personnel was comfortably discharged homeas well as [...] % (Auto) 64.2 Lymph % (Auto) 24.2 Frio % (Auto) 9.3 Eos % (Auto) 1.4 [...] tablet 25 mg PO DAILY norgestimate-ethinyl estradiol [Frio-Linyah] 0.25-0.035 mg tablet 1 tab PO DAILY [...] Care Provider: Karuna Lim Referrals: Karuna Lim, [employer]DING CAKE DESIGNER-C [Primary Care Provider] - Print Language: Azerbaijani Disposition Disposition: Psychiatric Hospital or Unit What to do if you have Problems For any increased pain, shortness of breath, bleeding, nausea or vomiting, chestpain, or any unexpected problems, contact your Primary Care Provider. Call [facility] ([phone]) or report tothe closest Emergency Room. Call 911 if necessary. 09/27/24 0037 Cosigner Signature (if applicable): CC: Karuna MCBRIDE WEDDING CAKE DESIGNERJovanna Lim ~ Signed [facility]08-07-2025 Evaluation note* Diagnosis Onset Date Resolution [...] gynecological examination noneactive Novobe r 2024 8:24am [facility] Work Phone: [phone] 607-581908-04-2025 Telephone encounter Note* Telephone Encounter - Chhaya Cano RN - 09/22/2024 2:06 PM EDT This matter is being addressed in a separate encounter (Refill 09/19). Closing this encounter. Sulma Cano RN [facility]08-04-2025 Miscellaneous Notes* Telephone Encounter - Chhaya Cano RN - 09/22/2024 2:06 PM EDT This matter is being addressed in a separate encounter (Refill 09/19). Closing this encounter. Sulma Cano RN documented in this encounterTrihealth07-17-2025 Radiology Diagnostic study [facility]07-10-2025 Telephone encounter Note* Telephone Encounter - Arsenio Solorio LSW - 08/28/2024 3:49 PM EDT Endocrinology & Metabolism Social Work Progress Note Provider Action / FYI N/A Marion Gutierrez [id number] Type of Contact: telephone Endocrine LICENSED RETAIL SUPERVISOR Referral Reason: [id number]/Exercise Noel Qualification Contact Made?: 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 Note/Intervention: n/a [employer] referral placed: n/a Signature: KANU Pathka Patient Name: Marion Gutierrez Date: 08/28/2024 Time: 3:50 PM Pager/Contact #: [phone] During this patient contact I spent approximately 5 minutes in reviewing the patient's chart and counseling regarding community resources and coordinating care. [facility]07-10-2025 Miscellaneous Notes* Telephone Encounter - Arsenio Solorio LSW - 08/28/2024 3:49 PM EDT Endocrinology & Metabolism Social Work Progress Note Provider Action / FYI N/A Marion Gutierrez [id number] Type of Contact: telephone Endocrine LICENSED RETAIL SUPERVISOR Referral Reason: [id number]/Exercise Noel Qualification Contact Made?: 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 Note/Intervention: n/a [employer] referral placed: n/a Signature: KANU Pathak Patient Name: Marion Gutierrez Date: 08/28/2024 Time: 3:50 PM Pager/Contact #: [phone] During this patient contact I spent approximately 5 minutes in reviewing the patient's chart and counseling regarding community resources and coordinating care. documented in this encounterTrihealth07-08-2025 History of Present illness Narrative* Maria Elena Savage, Business Education Instructor - 08/26/2024 12:55 PM EDT Virtual Visit [...] receiving an exercise prescription. documented in this encounterTrihealth07-08-2025 NoteHNO ID: [id number] Author: MARIA ELENA SAVAGE Business Education Instructor Service: ? Author Type: Business Education Instructor Type: Progress Notes Filed: 08/26/2024 13:13 Note [...] to receiving an exercise prescription. [facility]06-13-2025 NoteHNO ID: [id number] Author: LAURA CARSON, PhD Service: ? Author Type: Psychologist Type: Progress Notes Filed: 08/01/2024 14:55 Note Text: [facility] DEPARTMENT OF ENDOCRINOLOGY Progress Note August 01, 2024 [facility]: [facility] BILLING CODE:Leonid CPT Code:2059930 Virtual PSYTX PT AND/FAMILY 45 MINS Time initiated session: 12:20 PM to 1:30 PM Date of First Session: 06/02/24 (initial evaluation) Session #: 2 Collateral Parties Present: parent. Virtual Visit yes I have communicated my name and active licensure. If seen remotely, The patient's identity and physical location were verified at the time of this visit. Either the patient or their legal patient admitting representative has been informed of the risks [...] yes The day before yesterday: 8:30 Leftover Georgian food, chips, salsa guac 11:30 Taco salad [...] 26 at 1:30 pm Laura Carson, PhD [facility]ologist[facility] History of Present illness Narrative* Laura Carson, PhD - 08/01/2024 12:12 PM EDT Images from the original note were not included. [facility] DEPARTMENT OF ENDOCRINOLOGY Progress Note August 01, 2024 [facility] BILLING CODE:Leonid CPT Code:2452545 Virtual PSYTX PT &/FAMILY 45 MINS Time initiated session: 12:20 PM to 1:30 PM Date of First Session: 06/02/24 (initial evaluation) Session #: 2 Collateral Parties Present: parent. Virtual Visit yes I have communicated my name and active licensure. If seen remotely, The patient's identity and physical location were verified at the time of this visit. Either the patient or their legal patient admitting representative has been informed of the risks [...] yes The day before yesterday: 8:30 Leftover Georgian food, chips, salsa guac 11:30 Taco salad [...] Laura Leonid, PhD Psychologist documented in this encounterTrihealth06-05-2025 Evaluation note* Diagnosis Onset Date Resolution Status [...] and diarrhea chronic October 27, 2024 9:37am [facility] Work Phone: 1([phone]) 557-304905-27-2025 Instructions* Patient Instructions* Jey Johnson MD - 07/15/2024 10:59 AM EDT Please continue same regimen for the control pills documented in this encounterTrihealth05-27-2025 NoteHNO ID: [id number] Author: JEY JOHNSON MD Service: ? Author Type: Physician Type: Progress Notes Filed: 07/16/2024 23:20 Note Text: Endocrinology and Metabolism Paulina Follow up note Chief complaint: Evaluation of [...] Seasonal Allergies Cough Janell (more content not 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[facility]05-27-2025 History of Present illness Narrative* Jey Johnson MD - 07/15/2024 10:52 AM EDT Endocrinology and Metabolism Paulina Follow up note Chief complaint: Evaluation of [...] 07-23-2023 CORTISOL,F/24hr 46 ug/24 hr High 6-42 [facility] CORTISOL,U FREE 16 ug/L Normal Undefined [facility] Metanephrine Frac 24 HR UR on 07-23-2023 Metaneph,UR 24H 68 ug/24 hr Normal 36-209 [facility] Metanephrines,U 24 ug/L Normal Undefined [facility] Normetan,UR 24h 522 ug/24 hr High 95-449 [facility] Normetanephrine 183 ug/L Normal Undefined [facility] Catecholamines, 24 UR on 07-20-2023 Dopamine, Urine 580 ug/L Normal Undefined [facility] Dopamine,U,24HR 957 ug/24 hr High 0-510 [facility] Epineph.,U,24HR 5 ug/24 hr Normal 0-20 [facility] Epinephrine, U 3 ug/L Normal Undefined [facility] Norepin.,U,24HR 134 ug/24 hr Normal 0-135 [facility] Comment on above: Order Comment: Test(s) 547549-Uzxsfzivltw, Urine; 689459- Norepinephrine, Ur; 350919-Xoknhmwx, Urinewas developed and its performance characteristicsdetermined by [employer]. It has notbeen cleared or approvedby the Food and Drug Administration. Performed By: #### L3600.0150 ####[facility] [address] [place], [place],[id number] Norepinephrin,U 81 ug/L Normal Undefined [facility] Adrenocorticotropic Hormone on 07-17-2023 ACTH 9.7 pg/mL Normal 7.2-63.3 [facility] CORTISOL SERUM on 07-17-2023 CORTISOL 20.10 ug/dL Normal 3.44-22.45 [facility] Catecholamines, Plasma on 07-17-2023 DOPAMINE <30 Normal 0-48 [facility] EPINEPHRINE <15 Normal 0-62 [facility] NOREPINEPHRINE 429 pg/mL Normal 0-874 [facility] Gastrin, Serum on 07-17-2023 GASTRIN 265 pg/mL High 0-115 [facility] Insulin Level on 07-17-2023 INSULIN,FASTING 93.7 uIU/mL High 2.6-24.9 [facility] Insulin Like Growth Factor on 07-17-2023 SOMATOMEDIN C 122 ng/mL Normal 91-308 [facility] Chromogranin A 206.0 ng/mL Abnormal 0.0-101.8 [facility] Renin/Aldosterone Activity on 07-17-2023 ALD/RENIN RATIO 11.6 Normal 0.0-30.0 [facility] Performed By: #### L3400.1350, L3300.3500, L3300.1800, L3430.0100, L3300.1000, L3300.1050, L3100.4810 ####[facility] [address] [place], [place], [address] ALDOSTERONE,S 45.0 ng/dL High 0.0-30.0 [facility] RENIN, PLASMA 3.873 ng/mL/hr Normal 0.167-5.380 [facility] BUN/CRE 18.1 RATIO Normal 10-20 [facility] CA,Total 9.0 mg/dL Normal 8.5-10.1 [facility] Chloride [Moles/Vol] 110 mmol/L High 98-107 [facility] CO2 [Moles/Vol] 25.0 mmol/L Normal 21.0-32.0 [facility] Creatinine [Mass/Vol] 0.66 mg/dL Normal 0.55-1.02 [facility] Performed By: #### L100.0100, L500.4050, L506.1000, L501.23354, L501.9520, L506.0400, L501.9060 ####[facility] [address] [place], [place], [id number] EST GFR - AA 138 mL/min Normal >60 [facility] Performed By: #### L100.0100, L500.4050, L506.1000, L501.66754, L501.9520, L506.0400, L501.9060 ####[facility] [address] [place], [place], [id number] GAP 3 Low 5-15 [facility] GFR/1.73 sq M.predicted among non-blacks MDRD (S/P/Bld) [Vol rate/Area] 114 mL/min/(1.73_m2) Normal>60 [facility] Globulin (S) [Mass/Vol] 3.8 g/dL Normal 2.2-4.2 [facility] Glucose [Mass/Vol] 124 mg/dL High 74-106 [facility] Performed By: #### L100.0100, L500.4050, L506.1000, L501.87644, L501.9520, L506.0400, L501.9060 ####[facility] [address] [place], [place], [id number] Potassium [Moles/Vol] 4.0 mmol/L Normal 3.5-5.1 [facility] Sodium [Moles/Vol] 138 mmol/L Normal 136-145 [facility] T PROT 7.0 g/dL Normal 6.4-8.2 [facility] Urea nitrogen [Mass/Vol] 12 mg/dL Normal 7-18 [facility] Free T3 on 07-05-2023 Free T3 [Mass/Vol] 2.4 pg/mL Normal 2.18-3.98 [facility] Comment on above: Performed By: #### L100.0100, L500.4050, L506.1000, L501.33336, L501.9520, L506.0400, L501.9060 ####[facility] [address] [place], [address] Tenkiller on 07-05-2023 LI 0.80 mmol/L Normal 0.60-1.20 [facility] T4 Free Direct on 07-05-2023 T4 FREE DIRECT 1.04 ng/dL Normal 0.76-1.46 [facility] Comment on above: Performed By: #### L100.0100, L500.4050, L506.1000, L501.42292, L501.9520, L506.0400, L501.9060 ####[facility] [address] [place], [address] Thyroid Stim Hormone (TSH) on 07-05-2023 TSH 2.10 uIU/mL Normal 0.358-3.74 [facility] Vitamin D,25 Hydroxy on 07-05-2023 Vitamin D 25-OH 30.3 ng/mL Normal [facility] Latest Ref Rng 12/05/2023 Sex [...] Moderate Jey Johnson MD Endocrinology Associate Staff [facility] Endocrinology and Metabolism Paulina [phone] documented in this encounterTrihealth05-20-2025 Evaluation note* Diagnosis Onset Date Resolution Status [...] and diarrhea chronic September 25, 2024 2:24pm [facility] Work Phone: 1(730) 975-830805-20-2025 Evaluation note* Diagnosis Onset Date Resolution Status [...] and diarrhea chronic October 27, 2024 9:37am [facility] Work Phone: 1(804) 274-526505-08-2025 Telephone encounter Note* Telephone Encounter - Chhaya Cano RN - 06/26/2024 8:04 AM EDT Images from the original note were not included. Patient confirms taking Frio-Linyah and not Sprintec (also on med list). Pended for review. Most recent Endocrinology visit: Last encounter Visit on 05/16/2024 (with Peris Kibera) 10/26/2023 in [facility] with BENDARAM, JEY LAGUNA for PCOS (polycystic ovarian syndrome) 01/08/2024 in [facility] with BENDARAM, JEY LAGUNA for PCOS (polycystic ovarian syndrome) 04/15/2024 in [facility] with BENDARAM, JEY LAGUNA for Obesity, Class III, BMI 40-49.9 (morbid obesity) 05/16/2024 in [facility] with HUEY CORTES for Obesity, Class III, BMI 40-49.9 (morbid obesity) Upcoming Endocrinology Appointments - Next 365 Days Visit Type Date Time Department EST HAM PATIENT 07/15/2024 10:40 AM [facility] V[facility] SPEC EST 08/01/2024 12:15 PM ENDO PSYL DIABETES CTR MAIN VIDEO GROUP EP EDU NON IRASEMA 08/26/2024 1:00 PM ENDO [facility] Requested Prescriptions Pending Prescriptions Disp Refills MONO-LINYAH 0.25-0.035 mg tablet [Pharmacy Med Name: Frio-Linyah 0.25-35MG-MCG TABS] 28 tablet 2 Sig: TAKE [...] Prolactin Prolactin 4.4 - 33.8 ng/mL 15.2 [facility]05-08-2025 Miscellaneous Notes* Telephone Encounter - Chhaya Cano RN - 06/26/2024 8:04 AM EDT Images from the original note were not included. Patient confirms taking Frio-Linyah and not Sprintec (also on med list). Pended for review. Most recent Endocrinology visit: Last encounter Visit on 05/16/2024 (with Peris Kibera) 10/26/2023 in [facility] [place] with BENDARAM, JEY LAGUNA for PCOS (polycystic ovarian syndrome) 01/08/2024 in [facility] [place] with BENDARAM, JEY LAGUNA for PCOS (polycystic ovarian syndrome) 04/15/2024 in [facility] [place] with BENDARAM, JEY LAGUNA for Obesity, Class III, BMI 40-49.9 (morbid obesity) 05/16/2024 in [facility] with KIBERA, PERIS for Obesity, Class III, BMI 40-49.9 (morbid obesity) Upcoming Endocrinology Appointments - Next 365 Days Visit Type Date Time Department EST HAM PATIENT 07/15/2024 10:40 AM ENDO [facility] [place] VIDEO SPEC EST 08/01/2024 12:15 PM ENDO PSYL DIABETES CTR MAIN VIDEO GROUP EP EDU NON IRASEMA 08/26/2024 1:00 PM ENDO [facility] Requested Prescriptions Pending Prescriptions Disp Refills MONO-LINYAH 0.25-0.035 mg tablet [Pharmacy Med Name: Frio-Linyah 0.25-35MG-MCG TABS] 28 tablet 2 Sig: TAKE [...] - 33.8 ng/mL 15.2 documented in this encounterTrihealth04-15-2025 Discharge summary [facility] Medical Records Department [address] [place] [address] Emergency Department Summary 06/03/24 MR#: [id number] Acct: [id number] Name: MARION GUTIERREZ Rep #:[id number] : 1995 28 From: Jaylon Galicia MD PCP: Karuna Lim WEDDING CAKE DESIGNER-C Status:REG ER Location: ED HPI History of Present Illness Chief Complaint: Neuro S/Sx Informant: patient and parent Narrative Narrative: 28-year-old female presents saying she been having a migraine for 1 week nuymybxvmhy-xev-zbfqlir medications that are not helping, she gets [...] has had some jaw discomfort at times. [facility] Medical History Alcohol use Picking own skin [...] mg/1.6 441 mg IM .COMPLEX [facility] 12/18/22 10/23/23 History mL suspension, ext.rel. [...] chronic history of migraines, going to perform ROLL TRUCKER imaging but in addition CT angiography including [...] % (Auto) 64.3 Lymph % (Auto) 25.5 Frio % (Auto) 8.9 Eos % (Auto) 0.5 [...] 3. Additional description as above. Reading Location: [facility] Head/Neck CTA 06/03/24 08:57 IMPRESSION: 1. No [...] 3. Additional description as above. Reading Location: [facility] Rhythm Strip Rhythm Strip: Sinus Rhythm Rate: [...] Care Provider: Karuna Lim Referrals: Karuna Lim, WEDDING CAKE DESIGNER-C [Primary Care Provider] - As soon as possible Print Language: Azerbaijani Disposition Disposition: Home, Self Care What to do if you have Problems For any increased pain, shortness of breath, bleeding, nausea or vomiting, chestpain, or any unexpected problems, contact your Primary Care Provider. Call [facility] ([phone]) or report tothe closest Emergency Room. Call 911 if necessary. 06/03/24 1303 Cosigner Signature (if applicable): CC: Karuna MCBRIDE WEDDING CAKE DESIGNER-C Carina ~ Signed [facility]04-15-2025 Radiology Diagnostic study note [facility] Imaging Services [address] [place], [place] [address] CTA Head AND Neck W/ Contrast MR#: [id number] Acct: [id number] Name: MARION GUTIERREZ Rep #: [id number] : 1995 F 28 From: Theresa Forrester MD PCP: Karuna Lim WEDDING CAKE DESIGNER-C Status: REG ER Study:CTA Head AND Neck W/ Contrast Date of E xam: 06/03/24 Exam# [id number] Ordering Dr: Jorgito Galicia MD PROCEDURE: CT [...] of the [place]. Suspect origin ofthe LEFT ACQUISITION COST ESTIMATOR with questionable diminutive posterior communicating artery, poorly [...] 3. Additional description as above. Reading Location: [id number] CC: Dr. Jaylon Galicia MD; Karuna [facility] WEDDING CAKE DESIGNER-C Carina ~ Angle Roll Operator: Signed [facility]04-15-2025 Radiology Diagnostic study note [facility] Imaging Services [address] [place] [address] CTA Chest W/WO Contrast MR#: [id number] Acct: [id number] Name: MARION GUTIERREZ Rep #: [id number] : 1995 F 28 From: Theresa Forrester MD PCP: Karuna Lim [facility] WEDDING CAKE DESIGNER-C Status: REG ER Study:CTA Chest W/WO Contrast Date of Exam: 06/03/24 Exam# [id number] Ordering Dr: Jorgito Galicia MD PROCEDURE: CTA [...] 3. Additional description as above. Reading Location: [id number] CC: Dr. Jaylon Galicia MD; [facility] WEDDING CAKE DESIGNER-C Beam ~ Angle Roll Operator: Signed [facility]04-15-2025 Radiology Diagnostic study note [facility] Imaging Services [address] [place] [address] Abdomen Limited MR#: [id number] Acct: [id number] Name: MARION GUTIERREZ Rep #: [id number] : 1995 F 28 From: Colby Espitia MD PCP: Karuna Lim [facility] WEDDING CAKE DESIGNER-C Status: REG CLI Study:Abdomen Limited Date of Exam: 05/20 07/13 Exam# [id number] Ordering Dr: Juventino Lim [facility] WEDDING CAKE DESIGNER-Kimi PROCEDURE: ABDOMEN LIMITED 06/03/2024 REASON FOR EXAM: [...] infiltration of the liver. Hepatomegaly. Reading Location: [place] [address] CC: [facility] WEDDING CAKE DESIGNER-C Beam ~ Angle Roll Operator: Signed [facility]04-14-2025 NoteHNO ID: [id number] Author: LAURA CARSON, PhD Service: ? Author Type: Psychologist Type: Progress Notes Filed: 06/02/2024 16:36 Note Text: [facility]CR[facility]OLOG[facility] EVALUATION DATE OF SERVICE: June 02, 2024 TIME OF SERVICE: 2:30 pm [facility]: [facility] CPT CODE: 27136 Brief Emotional/Behavioral Assessment with scoring/documentation [id number] Virtual PSYCH DIAGNOSTIC EVAL BILLING CODE: Leonid SESSION #: 1 The patient signed the Informed Consent for Psychological Evaluation AND Care Form, and the reading hospital care insurance benefits, fees for service, [...] visit. Either the patient or their legal patient admitting representative has been informed of the risks and benefits of -- and alternatives to -- treatment through a remote evaluation and consents to proceed with the evaluation remotely. IDENTIFYING INFORMATION Ms. Marion Gutierrez is a 28 year old female. She was referred by Dr. Cortes. [place] pt's mom was also in meeting. Mom is not currently medical power of roll press operator but they have discussed this. Pt requested [...] Pollen Extracts Hives, Intolera (more content not 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[facility]04-14-2025 History of Present illness Narrative* Laura Carson, PhD - 06/02/2024 2:34 PM EDT Images from the original note were not included. [facility]OCR[facility] EVALUATION DATE OF SERVICE: June 02, 2024 TIME OF SERVICE: 2:30 pm [facility]: [facility] CPT CODE: 56233 Brief Emotional/Behavioral Assessment with scoring/documentation [id number] Virtual PSYCH DIAGNOSTIC EVAL BILLING CODE: Leonid SESSION #: 1 The patient signed the Informed Consent for Psychological Evaluation & Care Form, and the [facility] health care insurance benefits, fees for [...] visit. Either the patient or their legal patient admitting representative has been informed of the risks and benefits of -- and alternatives to -- treatment through a remote evaluation and consents to proceed with the evaluation remotely. IDENTIFYING INFORMATION Ms. Marion Gutierrez is a 28 year old female. She was referred by Dr. Cortes. [place] pt's mom was also in meeting. Mom is not currently medical power of roll press operator but they have discussed this. Pt requested [...] Inject 441 mg intramuscularly every 4 weeks. [employer] CenterUCH VERIO TEST STRIPS test strip 1 Each four times daily. AJOVY SYRINGE 225 mg/1.5 mL syringe INJECT 1.5ML (1 SYRINGE) SUBCUTANEOUSLY EVERY MONTH imipramine HCl (TOFRANIL) 25 mg tablet Take 25 mg by mouth daily at bedtime. lactulose 10 gram/15 mL solution TAKE 45 ML BY MOUTH TWICE DAILY NEEDED FOR CONSTIPATION. 3C PlusTOUCH DELICA PLUS LANCET 33 gauge 1 Each [...] include family life. - Working with a conditioner tender on a Mediterranean diet. - Denies interest [...] AM. 1/2 sandwich of two pieces of Indonesian toast, a sausage bautista, fried egg. Glass [...] day. 2 cans of pop per day [place] or chocolate milk 8 oz 2-3 times [...] to every two weeks (18 months) Psychiatrist WEDDING CAKE DESIGNER at same center [facility] - sees [...] well with siblings. MARITAL FAMILY/SIGNIFICANT RELATIONSHIPS Ms. uGtierrez has never been . The patient has no children. The patient currently [facility]. They help with adult life skills. Pt has dependency case manager. Pt takes medication on her own, except for Abilify injection about once per month. 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 Stopped due to medical conditions The [...] maintenance: Interrupted -- Wakes up: Tired -- care information associate work associated weight gain: N/A MENTAL STATUS [...] RD, LD, [facility], Psychologist documented in this encounterTrihealth04-10-2025 Evaluation note* Diagnosis Onset Date Resolution Status Admit Date Palpitations acute May 29, 2024 2:32pm Syncope acute May 29 2:32pm Hypertension chronic May 29, 2024 2:32pm [facility] Work Phone: 1(117) 323-751704-10-2025 Evaluation note* Diagnosis Onset Date Resolution Status [...] 2024 1:29pm Hypertension chronic July 24 1:29pm [facility] Work Phone: 1(737) 876-129404-10-2025 Evaluation note* Diagnosis Onset Date Resolution Status [...] 24 1:29pm Acute diarrhea acute September 2:24pm [place] [email or web address] [facility] Work Phone: 1(458) 188-544703-28-2025 Instructions* Patient Instructions* Huey Cortes DO, PhD [...] me. - Continue working with your current conditioner tender, Carissa Sherwood, on a low-carb Mediterranean diet to help control your weight. - Increase physical activity as tolerated; [facility] cement block maker [facility] to help you develop an individualized exercise program. - Schedule a visit with the cement block maker through [employer]. - Schedule a visit with the endocrine psychologist through [facility] to address binge eating, emotional [...] is in 3 months. documented in this encounterTrihealth03-28-2025 NoteHNO ID: [id number] Author: HUEY CORTES DO, PhD Service: ? Author Type: Physician Type: Progress Notes Filed: 05/16/2024 18:12 Note Text: [facility] - NEW VIRTUAL VISIT I have communicated my name and active licensure. The patient's identity and physical location were verified at the time of this visit. Either the patient or their legal patient admitting representative has been informed of the risks and benefits of -- and alternatives to -- treatment through a remote evaluation and consents to proceed with the evaluation remotely. The patient consented to the use of ambient Liebo software for draft documentation of the visit consistent with [facility]?s Notice of Privacy Practices. REASON OF VISIT: [...] include family life. - Working with a conditioner tender on a Mediterranean diet. - Denies interest [...] lose weight Pertinent medications causing weight gain: Tenkiller, imipramine, Lopressor, simvastatin Pertinent medications causing weight loss: None WEIGHT HISTORY AND TRAJECTORY: Weight Curve Childhood: Overweight High School: Overweight College: Overweight Adult years: Overweight Previous attempt for weight loss, including medications: Lifestyle modification, metformin Lifestyle Factors Diet and Eating behaviors 24h food recall: -- B: 10:30-11 AM. 1/2 sandwich of two pieces of Indonesian toast, a sausage bautista, fried egg. Glass [...] maintenance: Interrupted -- Wakes up: Tired -- care information associate work associated weight gain: N/A Stress -- Family life, finances Personal History Hx of bariatric surgery: Denies. Interest in bariatric surgery: Not sure MEN-2A/2B or MTC, including first degree relatives: Denies Pancreatitis/gastroparesis: Yes CAD/Stroke/Tachycar (more content not 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[id number] History of Present illness Narrative* Huey Cortes DO, PhD - 05/16/2024 8:49 AM EDT Images from the original note were not included. [facility] - NEW VIRTUAL VISIT I have communicated my name and active licensure. The patient's identity and physical location wereverified at the time of this visit. Either the patient or their legal patient admitting representative has been informed of the risks and benefits of -- and alternatives to -- treatment through a remote evaluation andconsents to proceed with the evaluation remotely. The patient consented to the use of [employer] software for draft documentation of the visit consistent with [facility] s Notice of Privacy Practices. REASON OF [...] include family life. - Working with a conditioner tender on a Mediterranean diet. - Denies interest [...] lose weight Pertinent medications causing weight gain: Tenkiller, imipramine, Lopressor, simvastatin Pertinent medications causing weight loss: None WEIGHT HISTORY AND TRAJECTORY: Weight Curve Childhood: Overweight High School: Overweight College: Overweight Adult years: Overweight Previous attempt for weight loss, including medications: Lifestyle modification, metformin Lifestyle Factors Diet and Eating behaviors 24h food recall: -- B: 10:30-11 AM. 1/2 sandwich of two pieces of Indonesian toast, a sausage bautista, fried egg. Glass [...] maintenance: Interrupted -- Wakes up: Tired -- care information associate work associated weight gain: N/A Stress -- [...] on File Prior to Visit Medication Sig FREEFamilytic RICHARD 2 SENSOR kit 1 Each every [...] Inject 441 mg intramuscularly every 4 weeks. [place] Electronic Certificate Authority CenterUCH VERIO TEST STRIPS test strip 1 Each [...] Obesity, Class III, BMI 40-49.9 (morbid obesity) ([facility]) (E66.01) - Current weight 295.5 lbs. - Discussed importance of dietary modifications, emphasizing a low-carb diet to reduce carbohydrateand saturated fat intake. - Patient is already working with a conditioner tender, Carissa Sherwood, on a Mediterranean diet. - Referred to cement block maker to develop an individualized exercise program considering patient's limitations due to dizziness. - Referred to endocrine psychologist to address behavioral strategies for weight management, including control of binge eating, emotional eating, and portion sizes. - Follow-up in 3 months to monitor progress. 2. Type 2 diabetes mellitus with other specified complication, without long-term current use of insulin ([facility]) (E11.69) - Diagnosed 2-3 years ago; A1c [...] accompanying intellectual impairment, requiring support (level 1) ([facility]) (F84.0) - Continue current management and support. 9. PCOS (polycystic ovarian syndrome) (E28.2) - Continue current management. 10. Irritable bowel syndrome with diarrhea (K58.0) - Symptoms vary between diarrhea and constipation. - Continue current management with Miralax and lactulose as needed. 11. Bipolar affective disorder, remission status unspecified ([facility]) (F31.9) - Continue current medications: lithium, aripiprazole [...] 4 - Moderate Huey Cortes DO, PhD [facility] documented in this encounterTrihealth03-27-2025 Discharge summary [facility] Medical Records Department [address] [place] [address] Emergency Department Summary 05/15/24 MR#: [id number] Acct: [id number] Name: MARION GUTIERREZ Rep #:[id number] : 1995 28 From: Stan Lin DO PCP: REED Sotomayor, [employer] CAKE DESIGNER-C Statu s:REG ER Location: ED HPI History [...] evaluation management. Patient denies any sick contacts [facility] Medical History Alcohol use Picking own skin [...] 441 mg/1.6 441 mg IM .COMPLEX [facility] 12/18/22 10/23/23 History mL suspension, ext.rel. [...] following commands and that she was at [facility] year is 2024. NIH of 0 [...] % (Auto) 58.9 Lymph % (Auto) 31.2 Frio % (Auto) 9.0 Eos % (Auto) 0.4 [...] 21:00 IMPRESSION: No Acute Findings. Reading Location: [facility] Discharge Plan Triage Chief Complaint: Chest [...] Naina Da Silva Referrals: Naina Da Silva, [employer] CAKE DESIGNER-C [Primary Care Provider] - Activity Restrictions/Additional Instructions: Follow with your primary care physician outpatient setting. Return with worsening symptoms or concerns. Chest x-ray is normal and your blood work was normal. Use your Reglan that you have at home fornausea and vomiting. Print Language: Azerbaijani Disposition Disposition: Home, Self Care What to do if you have Problems For any increased pain, shortness of breath, bleeding, nausea or vomiting, chestpain, or any unexpected problems, contact your Primary Care Provider. Call [facility] ([phone]) or report tothe closest Emergency Room. Call 911 if necessary. 05/15/24 0013 Cosigner Signature (if applicable): CC: REED WEDDING CAKE DESIGNERJovanna Da Silva ~ Signed [facility]03-26-2025 Radiology Diagnostic study note [facility] Imaging Services [address] [place] [address] Chest 1 View (Portable) MR#: [id number] Acct: [id number] Name: FedeJESÚSMARION LORENZN Rep #: [id number] : 1995 F 28 From: Jocelyne Strickland MD PCP: REED Sotomayor, [employer] DESIGNER-C Status: PRE ER Study:Chest 1 View (Portable) Date of Exam: 05/14/24 Exam# [id number] Ordering Dr: Provider ,Ed P. PROCEDURE: CHEST [...] (Portable) IMPRESSION: No Acute Findings. Reading Location: [id number] CC: REED WEDDING CAKE DESIGNER-Kiim Da Silva; ED PHYSICIAN PROVIDER ~ Angle Roll Operator: Signed [facility]03-20-2025 Discharge summary [facility] Medical Records Department [address] [place] [address] Emergency Department Summary 05/08/24 MR#: [id number] Acct: [id number] Name: DOCGERDAMARION Rep #:[id number] : 1995 28 From: Stan Lin DO PCP: REED Sotomayor, [employer] DES[employer]ER-C Statu s:REG ER Location: ED HPI History [...] pressure further. Patient denies recent sick contacts. [facility] Medical History Alcohol use Picking own skin [...] Patient follow commands that she was at [facility] years 2024 Skin: Warm, dry, intact [...] % (Auto) 58.1 Lymph % (Auto) 30.5 Frio % (Auto) 10.3 H Eos % (Auto) [...] Clarity Clear Urine pH 7.0 Ur Specific Hymera 1.005 Urine Protein 15 H Urine Glucose [...] abdominopelvic finding. 2. Moderate hepatomegaly. Reading Location: [facility] Discharge Plan Triage Chief Complaint: Nausea/Vomiting [...] Naina Da Silva Referrals: Naina Da Silva, [employer] CA[employer] DESIGNER-C [Primary Care Provider] - Activity Restrictions/Additional Instructions: Follow-up your doctor in outpatient setting. Return with worsening symptoms or concerns. Your CT today did not show anything surgical. Use the prescriptions are sent to your pharmacy as prescribed. Print Language: Azerbaijani Disposition Disposition: Home, Self Care What to do if you have Problems For any increased pain, shortness of breath, bleeding, nausea or vomiting, chestpain, or any unexpected problems, contact your Primary Care Provider. Call [facility] ([phone]) or report tothe closest Emergency Room. Call 911 if necessary. 05/08/24 1717 Cosigner Signature (if applicable): CC: REED W[employer]DING CAKE DESIGNER-C Naina Da Silva ~ Signed [facility]03-20-2025 Radiology Diagnostic study note [facility] Imaging Services [address] [place] [address] Abdomen/Pelvis W IV Cont ONLY MR#: [id number] Acct: [id number] Name: MARION GUTIERREZ Rep #: [id number] : 1995 F 28 From: Jocelyne Strickland MD PCP: REED Sotomayor, [employer]ING CAKE DESIGNER-C Status: REG ER Study:Abdomen/Pelvis W IV Cont ONLY Date of E xam: 05/08/24 Exam# [id number] Ordering Dr: Jojo Lin DO PROCEDURE: ABDOMEN/PELVIS [...] abdominopelvic finding. 2. Moderate hepatomegaly. Reading Location: [id number] CC: Kimi WEDDING CAKE DESIGNER-C Naina Da Silva; Dr. Stan Lin DO ~ Angle Roll Operator: Signed [facility]03-20-2025 Discharge summary Author Stan Lin [facility] Note Date/Time May 08, 2024 5:1 7pm [facility] Medical Records Department [address] [place] [address] Emergency Department Summary 05/08/24 MR#: [id number] Acct: [id number] Name: MARION GUTIERREZ Rep #:[id number] : 1995 28 From: Stan Lin DO PCP: REED Sotomayor, [employer]ING CAKE DESIGNER-C Statu s:REG ER Location: ED HPI History [...] pressure further. Patient denies recent sick contacts. [facility] Medical History Alcohol use Picking own skin [...] 441 mg/1.6 441 mg IM .COMPLEX [facility] 12/18/22 10/23/23 History mL suspension, ext.rel. [...] Patient follow commands that she was at [facility] years 2024 Skin: Warm, dry, intact [...] % (Auto) 58.1 Lymph % (Auto) 30.5 Frio % (Auto) 10.3 H Eos % (Auto) [...] Clarity Clear Urine pH 7.0 Ur Specific Hymera 1.005 Urine Protein 15 H Urine Glucose [...] abdominopelvic finding. 2. Moderate hepatomegaly. Reading Location: [facility] Discharge Plan Triage Chief Complaint: Nausea/Vomiting [...] Naina Da Silva Referrals: Naina Da Silva, [employer] CA[employer] DESIGNER-C [Primary Care Provider] - Activity Restrictions/Additional Instructions: Follow-up your doctor in outpatient setting. Return with worsening symptoms or concerns. Your CT today did not show anything surgical. Use the prescriptions are sent to your pharmacy as prescribed. Print Language: Azerbaijani Disposition Disposition: Home, Self Care What to do if you have Problems For any increased pain, shortness of breath, bleeding, nausea or vomiting, chestpain, or any unexpected problems, contact your Primary Care Provider. Call [facility] ([phone]) or report to the closest Emergency Room. Call 911 if necessary. 05/08/247 <Electronically signed by Stan Lin DO> Cosigner Signature (if applicable): CC: REED W[employer]DING CAKE DESIGNER-C Naina Da Silva ~ Signed [facility] Work Phone: 1(353) 238-829802-25-2025 Instructions* Patient Instructions* Jey Johnson MD - 04/15/2024 11:39 AM EST Endocrine weight amangement referral given, but if you choose to stay in [place], then you can schedule with OBGYN in this building Continue with the same control for now, making sure not to miss any pills during the month course If it continues to be irregular, please keep us informed documented in this encounterTrihealth02-25-2025 NoteHNO ID: [id number] Author: JEY JOHNSON MD Service: ? Author Type: Physician Type: Progress Notes Filed: 04/20/2024 15:26 Note Text: Endocrinology and Metabolism Paulina Follow up note Chief complaint: Evaluation of [...] Change Sea (more content not 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[facility]02-25-2025 History of Present illness Narrative* Jey Johnson MD - 04/15/2024 11:26 AM EST Endocrinology and Metabolism Paulina Follow up note Chief complaint: Evaluation of [...] 07-23-2023 CORTISOL,F/24hr 46 ug/24 hr High 6-42 [facility] CORTISOL,U FREE 16 ug/L Normal Undefined [facility] Metanephrine Frac 24 HR UR on 07-23-2023 Metaneph,UR 24H 68 ug/24 hr Normal 36-209 [facility] Metanephrines,U 24 ug/L Normal Undefined [facility] Normetan,UR 24h 522 ug/24 hr High 95-449 [facility] Normetanephrine 183 ug/L Normal Undefined [facility] Catecholamines, 24 UR on 07-20-2023 Dopamine, Urine 580 ug/L Normal Undefined [facility] Dopamine,U,24HR 957 ug/24 hr High 0-510 [facility] Epineph.,U,24HR 5 ug/24 hr Normal 0-20 [facility] Epinephrine, U 3 ug/L Normal Undefined [facility] Norepin.,U,24HR 134 ug/24 hr Normal 0-135 [facility] Comment on above: Order Comment: Test(s) 704951-Rkptahjwaxx, Urine; - Norepinephrine, Ur; 498661-Ottekmbu, Urinewas developed and its performance characteristicsdetermined by [employer]. It has notbeen cleared or approvedby the Food and Drug Administration. Performed By: #### L3600.0150 ####[facility] [address] [place], [place],[address] Norepinephrin,U 81 ug/L Normal Undefined [facility] Adrenocorticotropic Hormone on 07-17-2023 ACTH 9.7 pg/mL Normal 7.2-63.3 [facility] CORTISOL SERUM on 07-17-2023 CORTISOL 20.10 ug/dL Normal 3.44-22.45 [facility] Catecholamines, Plasma on 07-17-2023 DOPAMINE <30 Normal 0-48 [facility] EPINEPHRINE <15 Normal 0-62 [facility] NOREPINEPHRINE 429 pg/mL Normal 0-874 [facility] Gastrin, Serum on 07-17-2023 GASTRIN 265 pg/mL High 0-115 [facility] Insulin Level on 07-17-2023 INSULIN,FASTING 93.7 uIU/mL High 2.6-24.9 [facility] Insulin Like Growth Factor on 07-17-2023 SOMATOMEDIN C 122 ng/mL Normal 91-308 [facility] Chromogranin A 206.0 ng/mL Abnormal 0.0-101.8 [facility] Renin/Aldosterone Activity on 07-17-2023 ALD/RENIN RATIO 11.6 Normal 0.0-30.0 [facility] Performed By: #### L3400.1350, L3300.3500, L3300.1800, L3430.0100, L3300.1000, L3300.1050, L3100.4810 ####[facility] [address] [place], [place], [id number] ALDOSTERONE,S 45.0 ng/dL High 0.0-30.0 [facility] RENIN, PLASMA 3.873 ng/mL/hr Normal 0.167-5.380 [facility] BUN/CRE 18.1 RATIO Normal 10-20 [facility] CA,Total 9.0 mg/dL Normal 8.5-10.1 [facility] Chloride [Moles/Vol] 110 mmol/L High 98-107 [facility] CO2 [Moles/Vol] 25.0 mmol/L Normal 21.0-32.0 [facility] Creatinine [Mass/Vol] 0.66 mg/dL Normal 0.55-1.02 [facility] Performed By: #### L100.0100, L500.4050, L506.1000, L501.18786, L501.9520, L506.0400, L501.9060 ####[facility] [address] [place], [place], [id number] EST GFR - AA 138 mL/min Normal >60 [facility] Performed By: #### L100.0100, L500.4050, L506.1000, L501.65551, L501.9520, L506.0400, L501.9060 ####[facility] [address] [place], [place], [id number] GAP 3 Low 5-15 [facility] GFR/1.73 sq M.predicted among non-blacks MDRD (S/P/Bld) [Vol rate/Area] 114 mL/min/(1.73_m2) Normal>60 [facility] Globulin (S) [Mass/Vol] 3.8 g/dL Normal 2.2-4.2 [facility] Glucose [Mass/Vol] 124 mg/dL High 74-106 [facility] Performed By: #### L100.0100, L500.4050, L506.1000, L501.59369, L501.9520, L506.0400, L501.9060 ####[facility] [address] [facility] [address] Potassium [Moles/Vol] 4.0 mmol/L Normal 3.5-5.1 [facility] Sodium [Moles/Vol] 138 mmol/L Normal 136-145 [facility] T PROT 7.0 g/dL Normal 6.4-8.2 [facility] Urea nitrogen [Mass/Vol] 12 mg/dL Normal 7-18 [facility] Free T3 on 07-05-2023 Free T3 [Mass/Vol] 2.4 pg/mL Normal 2.18-3.98 [facility] Comment on above: Performed By: #### L100.0100, L500.4050, L506.1000, L501.02988, L501.9520, L506.0400, L501.9060 ####[facility] [address] [facility] [address] [place] on 07-05-2023 LI 0.80 mmol/L Normal 0.60-1.20 [facility] T4 Free Direct on 07-05-2023 T4 FREE DIRECT 1.04 ng/dL Normal 0.76-1.46 [facility] Comment on above: Performed By: #### L100.0100, L500.4050, L506.1000, L501.25383, L501.9520, L506.0400, L501.9060 ####[facility] [address] [place], [address] Thyroid Stim Hormone (TSH) on 07-05-2023 TSH 2.10 uIU/mL Normal 0.358-3.74 [facility] Vitamin D,25 Hydroxy on 07-05-2023 Vitamin D 25-OH 30.3 ng/mL Normal [facility] Latest Ref Rng 12/05/2023 Sex [...] 24 hr urine free cortisol checked at [facility], along with 24 hr urine metanephrines [...] Moderate Jey Johnson MD Endocrinology Associate Staff [facility] Endocrinology and Metabolism Paulina [phone] documented in this encounterTrihealth02-25-2025 Telephone encounter Note * Telephone Encounter - Cora Bruce LPN - 04/15/2024 7:34 AM EST Left message for patient with negative results.Cora Bruce LPN [facility]02-25-2025 Miscellaneous Notes* Telephone Encounter - Cora Bruce LPN - 04/15/2024 7:34 AM EST Left message for patient with negative results.Cora Bruce LPN * Telephone Encounter - Maru Galicia PA - 04/15/2024 7:09 AM EST Negative COVID flu RSV documented in this encounterTrihealth02-25-2025 Telephone encounter Note * Telephone Encounter - Maru Galicia PA - 04/15/2024 7:09 AM EST Negative COVID flu RSV [facility] Work Phone: 1(123) 576-696602-24-2025 KgcnQFYK-[id number] (AGENT OF COVID-19) RNA: Not detected INFLUENZA A RNA: Not detected INFLUENZA B RNA: Not detected RESPIRATORY SYNCYTIAL VIRUS (RSV) RNA: Not detectedUniversity [facility] CenterComment on above:Performed By: #### [id number]- [id number] ####[facility] [id number] [place] [id number] [facility]02-24-2025 NoteHNO ID: [id number] Author: LINCOLN BALDERAS MD Service: ? Author Type: Physician Type: Progress Notes Filed: 04/14/2024 16:34 Note Text: Patient presents with: Diarrhea: vomiting, cough, chills and fever x 4 days HPI: Feeling sick starting 4 days ago. She recently started amlodipine and reports her bible reader would like her tested for the flu [...] for results if she cannot log into [facility] tomorrow. Continue supportive care for viral illness. She is beyond the therapeutic window for tamiflu. Lincoln Balderas, [facility]02-24-2025 History of Present illness Narrative* Lincoln Balderas MD - 04/14/2024 4:22 PM EST Patient presents with: Diarrhea: vomiting, cough, chills and fever x 4 days HPI: Feeling sick starting 4 days ago. She recently started amlodipine and reports her bible reader would like her tested for the flu [...] for results if she cannot log into [facility] tomorrow. Continue supportive care for viral illness. She is beyond the therapeutic window for tamiflu. Lincoln Balderas MD documented in this encounterTrihealth01-06-2025 History of Present illness Narrative* Carissa Sherwood, RD - 02/25/2024 9:00 AM EST [facility] Medical Nutrition Therapy Visit Type: Virtual: I have discussed the nature of this visit with the patient which will occur via [facility] (Phone, Virtual Visit) and she agrees to proceed with this interaction.I have communicated my name and active licensure. The patient's identity and physical location were verified at the time of this visit. Either the patient or their legal patient admitting representative has been informed of the risks [...] Can of spaghetti and meatballs, OR Salad (Indonesian dressing, cheese, fried onions, croutons, wanton strips, [...] relates skipping meals in the past and [facility] Why Weight Program (relates no success w/ wt loss w/ this program) - Current medications for wt loss: - Monitoring BG via [employer] Richard 2, Pt reports readings: -- Very [...] BY MOUTH TWICE DAILY NEEDED FOR CONSTIPATION. 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 Possible Medications/ Supplements for PCOS and [...] by: Carissa Sherwood RD documented in this encounterTrihealth01-06-2025 NoteHNO ID: [id number] Author: CARISSA SHERWOOD RD Service: ? Author Type: Registered Dietitian Type: Progress Notes Filed: 02/25/2024 11:20 Note Text: [facility] Medical Nutrition Therapy Visit Type: Virtual: I have discussed the nature of this visit with the patient which will occur via [facility] (Phone, Virtual Visit) and she agrees to proceed with this interaction.I have communicated my name and active licensure. The patient's identity and physical location were verified at the time of this visit. Either the patient or their legal patient admitting representative has been informed of the risks [...] Can of spaghetti and meatballs, OR Salad (Indonesian dressing, cheese, fried onions, croutons, wanton strips, [...] relates skipping meals in the past and [facility] Why Weight Program (relates no [...] Inject 441 mg intramuscularly every 4 weeks. 3C PlusTOUCH VERIO TEST STRIPS test strip 1 Each [...] BY MOUTH TWICE DAILY NEEDED FOR CONSTIPATION. 3C PlusTOUCH DELICA PLUS LANCET 33 gauge 1 Each [...] Component V (more content not 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[facility]12-06-2024 NoteHNO ID: [id number] Author: LOUIS SCHMIDT APRN.[facility] Service: ? Author Type: Nurse Practitioner [...] BY MOUTH TWICE DAILY NEEDED FOR CONSTIPATION. 3C PlusTOUCH DELICA PLUS LANCET 33 gauge 1 Each [...] two times a day for 7 days. zhlbdjap-adbmrjowr-vswmwuzrwajzud (CORTISPORIN) 3.5-10,000-1 mg/mL-unit/mL-% otic suspension Use 3 [...] ICD9: 382.9, ICD10: H66.92 (primary diagnosis) - XBLMBTWY-QKYZFTPKP-DZTMJTSFY 3.5 MG-10,000 UNIT/ML-1 % EAR DROPS,SUSP 2. Acute otitis externa of left ear, unspecified type - ICD9: 380.10, ICD10: H60.502 - AMOXICILLIN 875 MG TABLET Prescription instructions reviewed (more content not 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[facility]12-06-2024 History of Present illness Narrative* Louis Schmidt APRN.SERVICE DELIVERY CONSULTANT - 01/25/2024 12:54 PM EST CC: Patient [...] two times a day for 7 days. hoefcrwe-mneycrkqr-cgwgbuedpvsyad (CORTISPORIN) 3.5-10,000-1 mg/mL-unit/mL-% otic suspension Use 3 [...] ICD9: 382.9, ICD10: H66.92 (primary diagnosis) - JNGFOFLQ-HBQTQLCNF-XROUXUHNE 3.5 MG-10,000 UNIT/ML-1 % EAR DROPS,SUSP 2. Acute otitis externa of left ear, unspecified type - ICD9: 380.10, ICD10: H60.502 - AMOXICILLIN 875 MG TABLET Prescription instructions reviewed with patient as applicable. Potential red flag symptoms discussed with the patient. Reviewed appropriate action plan to take if red flag symptoms occur. Patient agreeable to treatment plan. Louis Schmidt APRN.[facility] documented in this encounterTrihealth12-06-2024 Telephone encounter Note * Telephone Encounter - Natalee Rodriguez LPN - 01/25/2024 10:48 AM EST Patient given results and verbalized understanding of instructions given.. Natalee Rodriguez LPN [facility]12-06-2024 Miscellaneous Notes* Telephone Encounter - Natalee Rodriguez LPN - 01/25/2024 10:48 AM EST Patient given results and verbalized understanding of instructions given.. Natalee Rodriguez LPN * Telephone Encounter - Mallika Mo APRN.CNP - 01/25/2024 7:11 AM EST Please notify that covid/flu/rsv testing negative. Continue with plan of care as discussed during visit. documented in this encounterTrihealth12-06-2024 Telephone encounter Note * Telephone Encounter - Mallika Mo APRN.CNP - 01/25/2024 7:11 AM EST Please notify that covid/flu/rsv testing negative. Continue with plan of care as discussed during visit. [facility] Work Phone: 1(427) 679-766012-05-2024 Instructions* Patient Instructions* Maru Galicia PA - [...] for a few days. documented in this encounterTrihealth12-05-2024 NoteHNO ID: [id number] Author: MARU GALICIA PA Service: ? Author Type: Physician Still Runner Type: Progress Notes Filed: 01/24/2024 14:08 Note Text: This note was created using Octopartter. Subjective Marion Gutierrez is a 28 year [...] Inject 441 mg intramuscularly every 4 weeks. 3C PlusTOUCH VERIO TEST STRIPS test strip 1 Each [...] BY MOUTH TWICE DAILY NEEDED FOR CONSTIPATION. 3C PlusTOUCH DELICA PLUS LANCET 33 gauge 1 Each [...] - suspe (more content not 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[facility]12-05-2024 History of Present illness Narrative* Maru Galicia PA - 01/24/2024 2:03 PM EST This note was created using Ansirariter. Subjective Marion Gutierrez is a 28 year [...] Inject 441 mg intramuscularly every 4 weeks. [place] Electronic Certificate Authority CenterUCH VERIO TEST STRIPS test strip 1 Each [...] BY MOUTH TWICE DAILY NEEDED FOR CONSTIPATION. 3C PlusTOUCH DELICA PLUS LANCET 33 gauge 1 Each [...] ER evaluation. EDELMIRA Gillespie documented in this encounterTrihealth11-25-2024 Evaluation note* Diagnosis Onset Date Resolution Status Admit Date Palpitations acute December h, 2023 2:29pm Syncope acute January 14, 2024 2:29pm Hypertension chronic December, 2023 2:29pm [facility] Work Phone: 1(222) 123-255311-19-2024 Instructions* Patient Instructions* Jey Johnson MD - 01/08/2024 12:06 PM EST Please taking control pills prescribed Schedule for a dietitian visit for conservative weight loss documented in this encounterTrihealth11-19-2024 NoteHNO ID: [id number] Author: JEY JOHNSON MD Service: ? Author Type: Physician Type: Progress Notes Filed: 01/09/2024 18:32 Note Text: Endocrinology and Metabolism Paulina Follow up note Chief complaint: Evaluation of [...] Cuff Siz (more content not 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[facility]11-19-2024 History of Present illness Narrative* Jey Johnson MD - 01/08/2024 12:00 PM EST Endocrinology and Metabolism Paulina Follow up note Chief complaint: Evaluation of [...] 07-23-2023 CORTISOL,F/24hr 46 ug/24 hr High 6-42 [facility] CORTISOL,U FREE 16 ug/L Normal [facility] Metanephrine Frac 24 HR UR on 07-23-2023 Metaneph,UR 24H 68 ug/24 hr Normal 36-209 [facility] Metanephrines,U 24 ug/L Normal Undefined [facility] Normetan,UR 24h 522 ug/24 hr High 95-449 [facility] Normetanephrine 183 ug/L Normal Undefined [facility] Catecholamines, 24 UR on 07-20-2023 Dopamine, Urine 580 ug/L Normal [facility] Dopamine,U,24HR 957 ug/24 hr High 0-510 [facility] Epineph.,U,24HR 5 ug/24 hr Normal 0-20 [facility] Epinephrine, U 3 ug/L Normal Undefined [facility] Norepin.,U,24HR 134 ug/24 hr Normal 0-135 [facility] Comment on above: Order Comment: Test(s) 100338-Wgwxbzrsrkk, Urine; 422525- Norepinephrine, Ur; 860157-Lqxxoytr, Urinewas developed and its performance characteristicsdetermined by [facility]. It has notbeen cleared or approvedby the Food and Drug Administration. Performed By: #### L3600.0150 ####[facility] [address] [place], [place],[address] Norepinephrin,U 81 ug/L Normal Undefined [facility] Adrenocorticotropic Hormone on 07-17-2023 ACTH 9.7 pg/mL Normal 7.2-63.3 [facility] CORTISOL SERUM on 07-17-2023 CORTISOL 20.10 ug/dL Normal 3.44-22.45 [facility] Catecholamines, Plasma on 07-17-2023 DOPAMINE <30 Normal 0-48 [facility] EPINEPHRINE <15 Normal 0-62 [facility] NOREPINEPHRINE 429 pg/mL Normal 0-874 [facility] Gastrin, Serum on 07-17-2023 GASTRIN 265 pg/mL High 0-115 [facility] Insulin Level on 07-17-2023 INSULIN,FASTING 93.7 uIU/mL High 2.6-24.9 [facility] Insulin Like Growth Factor on 07-17-2023 SOMATOMEDIN C 122 ng/mL Normal 91-308 [facility] Chromogranin A 206.0 ng/mL Abnormal 0.0-101.8 [facility] Renin/Aldosterone Activity on 07-17-2023 ALD/RENIN RATIO 11.6 Normal 0.0-30.0 [facility] Performed By: #### L3400.1350, L3300.3500, L3300.1800, L3430.0100, L3300.1000, L3300.1050, L3100.4810 ####[facility] [address] [place], [address] ALDOSTERONE,S 45.0 ng/dL High 0.0-30.0 [facility] RENIN, PLASMA 3.873 ng/mL/hr Normal 0.167-5.380 [facility] BUN/CRE 18.1 RATIO Normal 10-20 [facility] CA,Total 9.0 mg/dL Normal 8.5-10.1 [facility] Chloride [Moles/Vol] 110 mmol/L High 98-107 [facility] CO2 [Moles/Vol] 25.0 mmol/L Normal 21.0-32.0 [facility] Creatinine [Mass/Vol] 0.66 mg/dL Normal 0.55-1.02 [facility] Performed By: #### L100.0100, L500.4050, L506.1000, L501.59186, L501.9520, L506.0400, L501.9060 ####[facility] [address] [place], [address] EST GFR - AA 138 mL/min Normal >60 [facility] Performed By: #### L100.0100, L500.4050, L506.1000, L501.18534, L501.9520, L506.0400, L501.9060 ####[facility] [address] [place], [address] GAP 3 Low 5-15 [facility] GFR/1.73 sq M.predicted among non-blacks MDRD (S/P/Bld) [Vol rate/Area] 114 mL/min/(1.73_m2) Normal>60 [facility] Globulin (S) [Mass/Vol] 3.8 g/dL Normal 2.2-4.2 [facility] Glucose [Mass/Vol] 124 mg/dL High 74-106 [facility] Performed By: #### L100.0100, L500.4050, L506.1000, L501.15956, L501.9520, L506.0400, L501.9060 ####[facility] [address] [place], [address] Potassium [Moles/Vol] 4.0 mmol/L Normal 3.5-5.1 [facility] Sodium [Moles/Vol] 138 mmol/L Normal 136-145 [facility] T PROT 7.0 g/dL Normal 6.4-8.2 [facility] Urea nitrogen [Mass/Vol] 12 mg/dL Normal 7-18 [facility] Free T3 on 07-05-2023 Free T3 [Mass/Vol] 2.4 pg/mL Normal 2.18-3.98 [facility] Comment on above: Performed By: #### L100.0100, L500.4050, L506.1000, L501.68074, L501.9520, L506.0400, L501.9060 ####[facility] [address] [place], [address] Tenkiller on 07-05-2023 LI 0.80 mmol/L Normal 0.60-1.20 [facility] T4 Free Direct on 07-05-2023 T4 FREE DIRECT 1.04 ng/dL Normal 0.76-1.46 [facility] Comment on above: Performed By: #### L100.0100, L500.4050, L506.1000, L501.14998, L501.9520, L506.0400, L501.9060 ####[facility] [address] [place], [address] Thyroid Stim Hormone (TSH) on 07-05-2023 TSH 2.10 uIU/mL Normal 0.358-3.74 [facility] Vitamin D,25 Hydroxy on 07-05-2023 Vitamin D 25-OH 30.3 ng/mL Normal [facility] Latest Ref Rng 12/05/2023 Sex [...] 24 hr urine free cortisol checked at [facility], along with 24 hr urine metanephrines [...] Moderate Jey Johnson MD Endocrinology Associate Staff [facility] Endocrinology and Metabolism Paulina [phone] documented in this encounterTrihealth11-11-2024 History of Present illness Narrative* [place] [...] liver Migraines (CMS/HCC) ER 08/29/21 for MIGRAINE [facility] Polycystic ovarian disease Suicide attempt (CMS/HCC) [...] plan, and return instructions. documented in this encounterPutnam County Memorial HospitalIneylzcbcr42-23-2819 Telephone encounter Note* Telephone Encounter - Amy Bragg RN - 12/19/2023 12:19 PM EDT Signed record release received from [facility] requesting previous OV notes from Dr. Johnson. Pt had 1 OV in 10/2023. This was faxed electronically through [facility]. Amy Bragg RN December 19, 2023 12:20 PM [facility]10-30-2024 Miscellaneous Notes* Telephone Encounter - Amy Bragg RN - 12/19/2023 12:19 PM EDT Signed record release received from [facility] requesting previous OV notes from Dr. Johnson. Pt had 1 OV in 10/2023. This was faxed electronically through [employer]. Amy Bragg RN December 19, 2023 12:20 PM documented in this encounterTrihealth10-28-2024 Telephone encounter Note * Telephone Encounter - Rhonda Duong - 12/17/2023 9:02 AM EDT Pt's mom called and schedule in office appt for 12/20/23 [facility] HospitalYyohbujegr95-68-7771 Miscellaneous Notes* Telephone Encounter - Rhonda Duong [...] injection. Last dispensed 11/19/23. documented in this encounterPutnam County Memorial HospitalRfcnnzjbdw01-86-6037 Telephone encounter Note* Telephone Encounter - Rhonda Duong - 12/12/2023 10:48 AM EDT LM today- on patient's cell ph#-12/12/23-for pt to call back and schedule an in office appt [facility] HospitalHdcqoqxffv61-05-4942 Telephone encounter Note* Telephone Encounter - Neli Russell MA - 12/06/2023 10:51 AM EDT Chart reviewed. Pt due for appt. Please call to schedule prior to next injection. Last dispensed 11/19/23. [facility] HospitalPjvqotihck98-09-5967 History of Present illness Narrative* Louis Schmidt APRN.SERVICE DELIVERY CONSULTANT - 11/27/2023 7:51 PM EDT Patient came [...] have any testing available. documented in this encounterTrihealth09-06-2024 Instructions* Patient Instructions* Jey Johnson MD - 10/26/2023 3:49 PM EDT Please discontinue spironolactone and provera for abpout 4 to 6 weeks before doing these labs ordered All labs to be done on fasting at 8 am Hold any other over the counter supplements for 3 days atleast before labs. Avoid any steroids until the labs are drawn documented in this encounterTrihealth09-06-2024 History of Present illness Narrative* Jey Johnson MD - 10/26/2023 3:31 PM EDT Endocrinology and Metabolism [facility] Initial Clinic Visit Note REASON FOR CONSULT: [...] 07-23-2023 CORTISOL,F/24hr 46 ug/24 hr High 6-42 [facility] CORTISOL,U FREE 16 ug/L Normal Undefined [facility] Metanephrine Frac 24 HR UR on 07-23-2023 Metaneph,UR 24H 68 ug/24 hr Normal 36-209 [facility] Metanephrines,U 24 ug/L Normal Undefined [facility] Normetan,UR 24h 522 ug/24 hr High 95-449 [facility] Normetanephrine 183 ug/L Normal Undefined [facility] Catecholamines, 24 UR on 07-20-2023 Dopamine, Urine 580 ug/L Normal Undefined [facility] Dopamine,U,24HR 957 ug/24 hr High 0-510 [facility] Epineph.,U,24HR 5 ug/24 hr Normal 0-20 [facility] Epinephrine, U 3 ug/L Normal Undefined [facility] Norepin.,U,24HR 134 ug/24 hr Normal 0-135 [facility] Comment on above: Order Comment: Test(s) 484039-Rqezeoznxay, Urine; - Norepinephrine, Ur; 449165-Ddesdber, Urinewas developed and its performance characteristicsdetermined by [employer]. It has notbeen cleared or approvedby the Food and Drug Administration. Performed By: #### L3600.0150 ####[facility] [address] [place],[address] Norepinephrin,U 81 ug/L Normal Undefined [facility] Adrenocorticotropic Hormone on 07-17-2023 ACTH 9.7 pg/mL Normal 7.2-63.3 [facility] CORTISOL SERUM on 07-17-2023 CORTISOL 20.10 ug/dL Normal 3.44-22.45 [facility] Catecholamines, Plasma on 07-17-2023 DOPAMINE <30 Normal 0-48 [facility] EPINEPHRINE <15 Normal 0-62 [facility] NOREPINEPHRINE 429 pg/mL Normal 0-874 [facility] Gastrin, Serum on 07-17-2023 GASTRIN 265 pg/mL High 0-115 [facility] Insulin Level on 07-17-2023 INSULIN,FASTING 93.7 uIU/mL High 2.6-24.9 [facility] Insulin Like Growth Factor on 07-17-2023 SOMATOMEDIN C 122 ng/mL Normal 91-308 [facility] Chromogranin A 206.0 ng/mL Abnormal 0.0-101.8 [facility] Renin/Aldosterone Activity on 07-17-2023 ALD/RENIN RATIO 11.6 Normal 0.0-30.0 [facility] Performed By: #### L3400.1350, L3300.3500, L3300.1800, L3430.0100, L3300.1000, L3300.1050, L3100.4810 ####[facility] [address] [place], [address] ALDOSTERONE,S 45.0 ng/dL High 0.0-30.0 [facility] RENIN, PLASMA 3.873 ng/mL/hr Normal 0.167-5.380 [facility] BUN/CRE 18.1 RATIO Normal 10-20 [facility] CA,Total 9.0 mg/dL Normal 8.5-10.1 [facility] Chloride [Moles/Vol] 110 mmol/L High 98-107 [facility] CO2 [Moles/Vol] 25.0 mmol/L Normal 21.0-32.0 [facility] Creatinine [Mass/Vol] 0.66 mg/dL Normal 0.55-1.02 [facility] Performed By: #### L100.0100, L500.4050, L506.1000, L501.18913, L501.9520, L506.0400, L501.9060 ####[facility] [address] [place], [address] EST GFR - AA 138 mL/min Normal >60 [facility] Performed By: #### L100.0100, L500.4050, L506.1000, L501.32246, L501.9520, L506.0400, L501.9060 ####[facility] [address] [place], [address] GAP 3 Low 5-15 [facility] GFR/1.73 sq M.predicted among non-blacks MDRD (S/P/Bld) [Vol rate/Area] 114 mL/min/(1.73_m2) Normal>60 [facility] Globulin (S) [Mass/Vol] 3.8 g/dL Normal 2.2-4.2 [facility] Glucose [Mass/Vol] 124 mg/dL High 74-106 [facility] Performed By: #### L100.0100, L500.4050, L506.1000, L501.83339, L501.9520, L506.0400, L501.9060 ####[facility] [address] [place], [address] Potassium [Moles/Vol] 4.0 mmol/L Normal 3.5-5.1 [facility] Sodium [Moles/Vol] 138 mmol/L Normal 136-145 [facility] T PROT 7.0 g/dL Normal 6.4-8.2 [facility] Urea nitrogen [Mass/Vol] 12 mg/dL Normal 7-18 [facility] Free T3 on 07-05-2023 Free T3 [Mass/Vol] 2.4 pg/mL Normal 2.18-3.98 [facility] Comment on above: Performed By: #### L100.0100, L500.4050, L506.1000, L501.03914, L501.9520, L506.0400, L501.9060 ####[facility] [address] [place], [address] Tenkiller on 07-05-2023 LI 0.80 mmol/L Normal 0.60-1.20 [facility] T4 Free Direct on 07-05-2023 T4 FREE DIRECT 1.04 ng/dL Normal 0.76-1.46 [facility] Comment on above: Performed By: #### L100.0100, L500.4050, L506.1000, L501.33833, L501.9520, L506.0400, L501.9060 ####[facility] [address] [place], [address] Thyroid Stim Hormone (TSH) on 07-05-2023 TSH 2.10 uIU/mL Normal 0.358-3.74 [facility] Vitamin D,25 Hydroxy on 07-05-2023 Vitamin D 25-OH 30.3 ng/mL Normal [facility] ASSESSMENT AND PLAN Patient has autism and Irregular cycles/amenorrhea: Check for total, bioavailable and free testosterone, SHBG, DHEA, androstenedione, prolactin, TSH, free T4, estrogen, FSH, LH Due to dizziness/lightheadedness, will check for cortisol and ACTH once again. These labs checked in 06/2023 at [facility] were normal, but her GI referral [...] 24 hr urine free cortisol checked at [facility], along with 24 hr urine metanephrines [...] discussed in detail again - Advised on prison risks of PCOS including increased risk for endometrial cancer, diabetes, CAD, hyperlipidemia Medical Decision Making: Problems: Moderate: New problem with uncertain prognosis Data: Unique test result(s) reviewed: 3+ Unique test(s) ordered: 3+ Independent interpretation of test from other physician/QHCP Medical Decision Making Level: 4 - Moderate The patient should follow-up in 2 months. Jey Johnson MD Endocrinology Associate Staff [facility] Endocrinology and Metabolism Paulina [phone] documented in this encounterTrihealth07-25-2024 History of Present illness Narrative* Lincoln Balderas [...] resolved. Lincoln Balderas MD documented in this encounterTrihealth03-19-2024 History of Present illness Narrative* Louis Schmidt APRN.SERVICE DELIVERY CONSULTANT - 05/08/2023 2:29 PM EDT Patient came [...] okay with this plan. documented in this encounterTrihealth02-17-2024 Discharge summary Author Ozzy [facility] April 08, 2023 6:39am Note Date/Time April 07, 2023 4:27pm [facility] Medical Records Department [address] [place] [address] Emergency Department Summary 04/07/23 MR#: [id number] Acct: [id number] Name: MARION GUTIERREZ Rep #:[id number] : [...] substance use, visual/tactile hallucinations, and homicidal thoughts. [facility] <EDELMIRA White - Last Filed: 04/07/23 20:30> [facility] Medical History Anxiety Arthritis Autism Back pain [...] % (Auto) 66.2 Lymph % (Auto) 24.6 Frio % (Auto) 7.3 Eos % (Auto) 1.0 [...] Kamara, DO - Last Filed: 04/07/23 21:29> [facility] Lab Data Labs: Laboratory Results - last 24 hr 04/07/23 04/07/23 16:55 18:10 WBC 9.3 RBC 4.67 Hgb 12.7 Hct 40.4 MCV 86.5 MCH 27.2 MCHC 31.4 L RDW Std Deviation 43.9 RDW Coeff of Delmy 13.9 Plt Count 340 MPV 9.0 Immature Gran % (Auto) 0.400 Neut % (Auto) 66.2 Lymph % (Auto) 24.6 Frio % (Auto) 7.3 Eos % (Auto) 1.0 [...] management plan. This note was generated with [employer] dictation software. It may contain incorrectwords, spelling, [...] Silva NP Referrals: Naina Da Silva NP, [employer] [Primary Care Provider] - What to do if you have Problems For any increased pain, shortness of breath, bleeding, nausea or vomiting, chestpain, or any unexpected problems, contact your Primary Care Provider. Call [employer] [facility] ([phone]) or report to the closest Emergency Room. Call 911 if necessary. 04/07/232029 <Electronically signed by Lianet HICKEY> Cosigner Signature (if applicable): 04/07/232128 <Electronically signed by Bridger Kamara DO> CC: HORTENSIA Da Silva ~ Signed [facility] Work Phone: 1(612) 979-354812-11-2023 Discharge summary Author Domitila Carr [facility] January 29, 2023 2:25pm Note Date/Time January 29, 2023 2:25pm [facility] Physical Therapy [facility] [place] [address] / REHABILITATION SERVICES DISCHARGE SUMMARY MR#: [id number] Acct: [id number] Name: MARION GUTIERREZ Rep #: [id number] : 1995 27 From: Domitila Carr MP T Referring Dr.: Dr. Laura Li MD Status: REG RCR Insurance: [facility] SELF PAY [employer]URANCE Discharge Summary D/C [...] please feel free to call me at [phone]. Thank you for the referral of thispatient. Sincerely, Domitila Carr, WALLY Balance/Gait/Functional tests Balance/Special Test Scores Lower Extremity Functional Score: 75 Improvement % Improvement: 100 <Electronically signed by Domitila Carr MPT> 01/29/23 1424 CC: [employer] CAKE DESIGNERJovanna Da Silva; Dr. Laura Li MD ~ Signed [facility] Work Phone: 1(528) 973-633711-01-2023 Discharge summary Author Laura Li [facility] December 20, 2022 11:29am Note Date/Time December 20, 2022 1 1:28am [facility] Medical Records Department [address] [place] [address] Discharge Summary 12/20/22 1127 MR#: [id number] Acct: [id number] Name: MARION GUTIERREZ Rep #:[id number] : 1995 27 From: Laura Li MD PCP: [facility] atus:ADM IN [facility] Providers Date of Admission: 12/19/22 Date of Discharge: 12/20/22 Primary Care Physician: [facility] Reason For Visit: SYNCOPE Diagnosis Discharge Diagnosis [...] % (Auto) 55.7, Lymph % (Auto) 34.0, Frio% (Auto) 7.5, Eos % (Auto) 2.0, Baso [...] Attending Provider: Laura Li [facility] Consult[facility] Providers: [place] Wisdom Discharge [...] PO DAILY Ref[facility] [[facility] Care Provider] - Within 1 Week Disposition Disposition (needs filled in before D/C Order can be placed): Home, Self Care Charges/Coding Visit Charges Inpatient E&M: 32759 Disch Hosp >30min 12/20/22 1129 <Electronically signed by Laura Li MD> Cosigner Signature (if applicable): CC: Dr. Laura Li MD; [facility]~ Signed [facility] Work Phone: 1(329) 163-960911-01-2023 Progress note Author Laura Li [facility] December 20, 2022 11:27am Note Date/Time December 20, 2022 8 :26am [facility] Medical Records Department [address] [place] [address] Progress Note - Hospitalist 12/20/22 0826 MR#: [id number] Acct: [id number] Name: MARION GUTIERREZ Rep #:[id number] : 1995 27 From: Laura Li MD PCP: [facility] St atus:ADM IN Location: [facility] [id number]- 1 Reason for Visit Reason for Visit: [...] % (Auto) 55.7, Lymph % (Auto) 34.0, Frio% (Auto) 7.5, Eos % (Auto) 2.0, Baso [...] limited. Ordering Physician: [place] Wisdom Referring Physician: [facility] Performed By: Kaur Kinsey RDCS, RVT Physical [...] 40 Minutes Charges/Coding Visit Charges Inpatient E&M: 34692 Subs Hosp L2 12/20/22 1127 <Electronically signed by Laura Li MD> Cosigner Signature (if applicable): CC: ~ Signed [facility] Work Phone: 1(112) 692-114310-31-2023 Progress note [facility] December 19, 2022 2:11pm Note Date/Time December 19, 2022 1 1:20am [facility] Medical Records Department [address] [place] [address] Progress Note - Hospitalist 12/19/22 1120 MR#: [id number] Acct: [id number] Name: MARION GUTIERREZ Rep #:[id number] : 1995 27 From: Laura Li MD [facility] St atus:ADM GARRET Location: [place] [address] Reason for Visit Reason for Visit: Diagnoses [...] 73.9 H, Lymph % (Auto) 18.1 L, Frio % (Auto) 6.4, Eos % (Auto) 0.7, [...] Troponin I High Sens 3 12/18/22 16:43: [place] 0.60 Radiography Diagnostic Testing: Radiology Impression Brain [...] limited. Ordering Physician: [place] Wisdom Referring Physician: [facility] Performed By: Kaur Kinsey, CISCO, RVT Physical [...] 40 Minutes Charges/Coding Visit Charges Inpatient E&M: 26204 Subs Hosp L2 12/19/22 1411 <Electronically signed by Laura Li MD> Cosigner Signature (if applicable): CC: ~ Signed [facility] Work Phone: 1(223) 824-112210-30-2023 History and physical note Author [place] Wisdom [facility] December 18, 2022 8:01pm Note Date/Time December 18, 2022 7 :56pm [facility] Medical Records Department [address] [place] [address] H&P Exam - Hospitalist 12/18/221945 MR#: [id number] Acct: [id number] Name: MARION GUTIERREZ Rep #:[id number] : 1995 From: Montana Wisdom DO PCP: [facility] atus:ADM GARRET Location: [address] 1 HPI - General General Date of Admission: 12/18/22 Date of Service: 12/18/22 Chief Complaint: Lightheadedness, syncope HPI Narrative MARION GUTIERREZ, is a 27 F who [facility] with complaints of multiple episodes [...] I talked to her primary caregiver at [facility] today, she was placed on medication for polycystic ovarian syndrome but her blood sugar went too low and they had to take her off medication. Her serum insulin level was also low according to her primary caregiver at [facility]. The emergency room physician's lens assistant told me today that the patient's [...] good narrative as to what is happening. [facility] Medical History (Updated 12/18/22 @ 19:31 by [...] 73.9 H, Lymph % (Auto) 18.1 L, Frio % (Auto) 6.4, Eos % (Auto) 0.7, [...] Troponin I High Sens 3 12/18/22 16:43: [place] 0.[address] 12/18/22 14:38 [...] 40 minutes Charges/Coding Visit Charges Inpatient E&M: 38532 Init Hosp L1 12/18/222000 <Electronically signed by Montana Wisdom DO> Cosigner Signature (if applicable): CC: Dr. [place] Wisdom, ; [facility]~ Signed [facility] Work Phone: 1(207) 426-106310-30-2023 Discharge summary Author Sarah Purdy [facility] December 18, 2022 6:00pm Note Date/Time December 18, 2022 2 :38pm [facility] Medical Records Department [address] [place] [address] Emergency Department Summary 12/18/22 MR#: [id number] Acct: [id number] Name: MARION GUTIERREZ Rep #:[id number] : 1995 27 From: Roxy BAZAN [facility] St atus:ADM GARRET Location: [facility] [id number]- 1 <Statement entered by Sarah Purdy MD [...] a headache. She is here with a supervisor general who has seen her have some dizzy [...] blood clots in the legs or lungs. [facility] Medical History Anxiety Arthritis Autism [...] 73.9 H Lymph % (Auto) 18.1 L Frio % (Auto) 6.4 Eos % (Auto) 0.7 [...] Normal sinus rhythm, rate of 89 bpm, CT 164 ms, QRS duration 80 ms, no [...] MOUTH TWICE A DAY Primary Care Provider: [facility] Daniel Betancur [facility]: [facility] [[facility] Provider] - Disposition Disposition: Acute Care Hospital [facility] What to do if you have Problems For any increased pain, shortness of breath, bleeding, nausea or vomiting, chestpain, or any unexpected problems, contact your Primary Care Provider. Call [facility] ([phone]) or report to the closest Emergency Room. Call 911 if necessary. 12/18/22 1649 <Electronically signed by Roxy BAZAN> Cosigner Signature (if applicable): 12/18/22 1800 <Electronically signed by Sarah Purdy MD> CC: [facility] ~ Signed [facility] Work Phone: 1(296) 272-914410-21-2023 Discharge summary Author Rodolfo Das [facility] December 09, 2022 9:52pm Note Date/Time December 09, 2022 8 :06pm [facility] Medical Records Department [address] [place] [address] Emergency Department Summary 12/09/22 MR#: [id number] Acct: [id number] Name: MARION GUTIERREZ Rep #:[id number] : 1995 27 From: Rodolfo Das MD PCP: [facility] St atus:REG ER Location: ED HPI History [...] that she complained of headaches as well. [facility] Medical History Anxiety Arthritis Autism [...] (Auto) 71.2 H Lymph % (Auto) 20.4 Frio % (Auto) 6.9 Eos % (Auto) 0.7 [...] Sl. Cloudy Urine pH 6.0 Ur Specific [place] 1.025 Urine Protein 30 H Urine Glucose [...] MOUTH TWICE A DAY [facility]: [facility] [Primary Care Provider] - 3-5 Days if not improving Activity Restrictions/Additional Instructions: Continue your Reglan as needed. Small amounts of water to keep yourself hydrated. Disposition Disposition: Home, Self Care What to do if you have Problems For any increased pain, shortness of breath, bleeding, nausea or vomiting, chestpain, or any unexpected problems, contact your Primary Care Provider. Call [facility] ([phone]) or report to the closest Emergency Room. Call 911 if necessary. 12/09/222151 <Electronically signed by Rodolfo Das MD> Cosigner Signature (if applicable): CC: [facility] ~ Signed [facility] Work Phone: 1(138) 641-389708-15-2023 NotePap Smear Specimen AdequacyAugust 2022 10:31amComment.Satisfactory for evaluation. No endocervical component is identified.[facility] A#[id number] HospitalComment on above:Satisfactory for evaluation. No endocervical component is identified. 10-03-2022 NotePap Smear Specimen AdequacyAugust 2022 10:31amComment. Satisfactory for evaluation. No endocervical component is identified.[facility] A#[id number] HospitalComment on above:Satisfactory for evaluation. No endocervical component is identified.10-03-2022 NotePap Smear Specimen AdequacyAugust 2022 10:31amComment.Satisfactory for evaluation. No endocervical component is identified.[facility] A#[id number] HospitalComment on above:Satisfactory for evaluation. No endocervical component is identified.10-03-2022 NotePap Smear Specimen AdequacyAugust 2022 10:31amComment.Satisfactory for evaluation. No endocervical component is identified.[facility] A#[id number] HospitalComment on above:Satisfactory for evaluation. No endocervical component is identified. 10-03-2022 NotePap Smear Specimen AdequacyAugust 2022 10:31amComment. Satisfactory for evaluation. No endocervical component is identified.[facility] A#[id number] HospitalComduane l. waters hospital on above:Satisfactory for evaluation. No endocervical component is identified.10-03-2022 NotePap Smear Specimen AdequacyAugust 2022 10:31amComment.Satisfactory for evaluation. No endocervical component is identified.[facility] A#[id number] HospitalComduane l. waters hospital on above:Satisfactory for evaluation. No endocervical component is identified.08-15-[address] [facility] August 15, 2022 10:11pm Note Date/Time August 15, 2022 8:19 pm [facility] Medical Records Department [address] [place] [address] Emergency Department Summary 08/15/22 MR#: [id number] Acct: [id number] Name: DOCGERDAMARION CHAPARRON Rep #:[id number] : 1995 26 From: David Etienne DO PCP: [facility] St atus:REG ER Location: ED HPI HPI [...] urinary complaints. No fevers or chills. PFSH [facility] Medical History Anxiety Arthritis Autism Back pain [...] unremarkable. Urinalysis negative for infection. hCG negative. Tenkiller level is normal. Patient feeling better on [...] % (Auto) 59.6 Lymph % (Auto) 28.3 Frio % (Auto) 9.2 Eos % (Auto) 1.8 [...] Sl. Cloudy Urine pH 6.0 Ur Specific Hymera 1.020 Urine Protein 15 H Urine Glucose (UA) Normal Urine Ketones Negative Urine Occult Blood Negative Urine Nitrite Negative Urine Bilirubin Negative Urine Urobilinogen Normal Ur Leukocyte Esterase 25 H Urine RBC 0 SEEN Urine WBC 0-5 SEEN Ur Squamous Epith Cells 0-5 SEEN Urine Bacteria 1+ Urine Mucus 0 SEEN Tenkiller 08/15/22 08/15/22 19:57 19:57 WBC RBC Hgb Hct MCV MCH MCHC RDW Std Deviation RDW Coeff of Delmy Plt Count MPV Immature Gran % (Auto) Neut % (Auto) Lymph % (Auto) Frio % (Auto) Eos % (Auto) Baso % [...] Color Urine Clarity Urine pH Ur Specific Hymera Urine Protein Urine Glucose (UA) Urine Ketones Urine Occult Blood Urine Nitrite Urine Bilirubin Urine Urobilinogen Ur Leukocyte Esterase Urine RBC Urine WBC Ur Squamous Epith Cells Urine Bacteria Urine Mucus Tenkiller 0.60 Discharge Plan Triage Chief Complaint: Abd [...] pain) Qty: 60 1RF [facility],[place] Kelsy [Primary Care Provider] - Disposition Disposition: Home, Self Care What to do if you have Problems For any increased pain, shortness of breath, bleeding, nausea or vomiting, chestpain, or any unexpected problems, contact your Primary Care Provider. Call [facility] ([phone]) or report to the closest Emergency Room. Call 911 if necessary. 08/15/222210 <Electronically signed by David Etienne DO> Cosigner Signature (if applicable): CC: [facility] ~ Signed [facility] Work Phone: 1(496) 654-529506-20-2023 Procedure [facility] 08-08-2022 Procedure [facility]06-20-2023 Procedure note [facility]06[facility]2023 Procedure [facility] 12-12-2021 History of Present illness Narrative* [...] dentist. Lincoln Balderas MD documented [facility] encounter[facility]-16-[facility]22 History of Present illness Narrative* Lincoln Balderas MD - 09/03/2021 10:42 AM EDT [facility] Care Triage Note: [facility] care with complaint of nausea, vomiting, and dizziness. She has been unable to eat for the last 5 days and has been unable to drink since yesterday. Patient is alert, flat affect, sitting in a wheelchair, and accompanied by her mother. ER treatment recommended for dehydration. documented in this encounterTrihealth10-26-2021 Hospital Discharge instructions Patient Education 12/14/2020 20:33:17 [...] the uterine lining, diabetes, and heart disease. [id number] [employer] [facility]. [address] [place] [address], [place] [address]. All rights reserved. This information is not [...] month. The bleeding may be heavier or inspector production plastic parts than normal. If you have heavy bleeding [...] or shortness of breath Dizziness or fainting [id number] [facility]. [address] [place] [address]. All rights reserved. This information is not intended as a substitute for professional medical care. Always follow yourhealthcare professional's instructions. Follow Up Care 12/14/2020 18:23:00 With:[facility] Address: [address] [place] [address]- When:1-[address] [facility] 11-18-2020 History of Present illness Narrative* [...] 07, 2020 9:03 AM [facility] Author [facility] Note Date/Time October 27, 2024 10:43am [facility] Medical Records Department [address] [place] [address] Pre-Anesthesia Evaluation 10/27/24 1043 MR#: [id number] Acct: [id number] Name: MARION GUTIERREZ Rep #:[id number] : 1995 29 From: Moe Masterson PCP: Karuna Lim [facility] [employer] Status:REG [facility] Y Race: C Location: [place] [address] ASA Classification* ASA Classification ASA Classification: 3 [...] Procedure(s): CSCOPE Anesthesia History Anesthesia History - environmental specialist: Anesthesia History - environmental specialist Hx Hospitalization No 10/24/24 10:50 Any Problems [...] take am of surgery PONV PONV - environmental specialist: PONV - environmental specialist Female Yes 10/24/24 10:50 HX of Motion [...] 10/27/24 10:07 Respiratory Assessment Respiratory Assessment - environmental specialist: Respiratory Tract Infection Hx - environmental specialist Hx Respiratory Tract Infection No 10/24/24 10:50 STOP Sleep Apnea STOP Sleep Apnea - environmental specialist: STOP Sleep Apnea - environmental specialist Hx Hypertension Yes: CONTROLLED WITH MED 10/24/24 [...] Tobacco Use History Tobacco Use History - environmental specialist: Tobacco Use History - environmental specialist Tobacco Use Non-smoker 07/10/23 09:36 Smoking Status Never smoker 10/24/24 10:50 Hx Tobacco Use No 10/24/24 10:50 Years Smoking Packs Smoked per Day Smoking Cessation Date was within the last 15 years Hx Smoking Cessation Date Hx Smoking Cessation Counseling Hematologic Medial History Hematologic Hx - environmental specialist: Hematologic Medical Hx - manager documentation Hx of Blood Transfusion No 10/24/24 10:50 [...] confused, unrespo /Reproduction History /Reproductive History - environmental specialist: /Reproductive Hx- environmental specialist Hx Now No 10/24/24 10:50 Gestational Age [...] mg/1.6 441 mg IM .Q28 DAYS m [facility] 12/18/22 09/24/24 History mL suspension, ext.rel. IM syringe ([place]ristada) cholecalciferol (vitamin D3) 25 25 mcg PO DAILY vitami n 12/18/22 09/26/24 History mcg (1,000 unit) tablet (Vitamin D3) imipramine HCl 25 mg tablet 25 mg PO DAILY [facility] 12/18/22 09/26/24 History pantoprazole 40 mg tablet,delayed [...] U nknown History estradiol 0.035 mg tablet (Frio-Linyah) rizatriptan 10 mg tablet 10 mg PO [...] MD Cosigner Signature: Date CC: ~ Signed [facility] Work Phone: Consult note Author Collin Lin [facility] Note Date/Time October 27, 2024 11:15am [facility] Medical Records Department [address] [place] [address] Anesthesia Postop Eval I 10/27/24 1114 MR#: [id number] Acct: [id number] Name: MARION GUTIERREZ Rep #:[id number] : 1995 29 From: Collin Lin PCP: Karuna Lmi Kimi [employer] Status:REG [facility] Y Race: C Location: [place] [address] Anesthesia: Postop Eval I Current Vital Signs [...] Collin Aguilar Signature: Date CC: ~ Signed [facility] Work Phone: Discharge summary Author Ozzy Bright [facility] November 23, 2022 12:33am Note Date/Time November 23, 2022 12 :05am [facility] Medical Records Department [address] [place] [address] Emergency Department Summary 11/23/22 MR#: [id number] Acct: [id number] Name: MARION GUTIERREZ Rep #:[id number] : 1995 27 From: Ozzy Angel PCP: [facility] St atus:REG ER Location: ED HPI History [...] vision when her blood sugar was low. [facility] Medical History Anxiety Arthritis Autism [...] MOUTH TWICE A DAY [facility] Ref[facility]: [facility],[place] Kelsy [Primary Care Provider] - 3-5 Days Activity Restrictions/Additional Instructions: Call your primary care physician tomorrow for further instructions on your Victoza. Disposition Disposition: Home, Self Care What to do if you have Problems For any increased pain, shortness of breath, bleeding, nausea or vomiting, chestpain, or any unexpected problems, contact your Primary Care Provider. Call [facility] ([phone]) or report to the closest Emergency Room. Call 911 if necessary. 11/23/22 0033 <Electronically signed by Ozzy Bright DO> Cosigner Signature (if applicable): CC: [facility] ~ Signed [facility] Work Phone: Discharge summary Author Stan [facility] Note Date/Time May 15, 2024 12: 13am [facility] Medical Records Department [address] [place] [address] Emergency Department Summary 05/15/24 MR#: [id number] Acct: [id number] Name: MARION GUTIERREZ Rep #:[id number] : 1995 28 From: Stan Lin DO PCP: REED Sotomayor, [employer] Statu s:REG ER Location: ED HPI History [...] mg/1.6 441 mg IM .COMPLEX [facility] 12/18/22 10/23/23 History mL suspension, ext.rel. IM syringe ([place]rist[place]) cholecalciferol (vitamin D3) 25 25 mcg PO DAILY vitami n 12/18/22 10/22/23 History mcg (1,000 unit) tablet (Vitamin D3) imipramine HCl 25 mg tablet 25 mg PO DAILY [facility] 12/18/22 10/22/23 History mecobalamin (vitamin B12) [...] following commands and that she was at [facility] year is 2024. NIH of 0 [...] % (Auto) 58.9 Lymph % (Auto) 31.2 Frio % (Auto) 9.0 Eos % (Auto) 0.4 [...] 21:00 IMPRESSION: No Acute Findings. Reading Location: [facility] Discharge Plan Triage Chief Complaint: Chest [...] Naina Da Silva Referrals: Naina Da Silva, [employer] [Primary Care Provider] - Activity Restrictions/Additional Instructions: Follow with your primary care physician outpatient setting. Return with worsening symptoms or concerns. Chest x-ray is normal and your blood work was normal. Use your Reglan that you have at home for nausea and vomiting. Print Language: Azerbaijani Disposition Disposition: Home, Self Care What to do if you have Problems For any increased pain, shortness of breath, bleeding, nausea or vomiting, chestpain, or any unexpected problems, contact your Primary Care Provider. Call [facility] ([phone]) or report to the closest Emergency Room. Call 911 if necessary. 05/15/24 0013 <Electronically signed by Stan Lin DO> Cosigner Signature (if applicable): CC: REED [employer] Naina Da Silva ~ Signed [facility] Work Phone: Discharge summary Author Jaylon Galicia [facility] Note Date/Time June 03, 2024 1:0 3pm [facility] Medical Records Department [address] [place] [address] Emergency Department Summary 06/03/24 MR#: [id number] Acct: [id number] Name: MARION GUTIERREZ Rep #:[id number] : 1995 28 From: Jaylon Galicia MD PCP: Karuna Lim [employer] Status:REG ER Location: ED HPI History of Present Illness Chief Complaint: Neuro S/Sx Informant: patient and parent Narrative Narrative: 28-year-old female presents saying she been having a migraine for 1 week [id number]-[id number]-[id number] medications that are not helping, she gets [...] has had some jaw discomfort at times. [facility] Medical History Alcohol use Picking own skin [...] 441 mg IM .[facility] 12/18/22 10/23/23 History mL suspension, [...] chronic history of migraines, going to perform ROLL TRUCKER imaging but in addition CT angiography including [...] % (Auto) 64.3 Lymph % (Auto) 25.5 Frio % (Auto) 8.9 Eos % (Auto) 0.5 [...] 3. Additional description as above. Reading Location: [facility] Head/Neck CTA 06/03/24 08:57 IMPRESSION: 1. No [...] 3. Additional description as above. Reading Location: [facility] Rhythm Strip Rhythm Strip: Sinus Rhythm Rate: [...] Care Provider: Karuna Lim Referrals: Karuna Lim, [employer] [Primary Care Provider] - As soon as possible Print Language: Azerbaijani Disposition Disposition: Home, Self Care What to do if you have Problems For any increased pain, shortness of breath, bleeding, nausea or vomiting, chestpain, or any unexpected problems, contact your Primary Care Provider. Call [facility] ([phone]) or report to the closest Emergency Room. Call 911 if necessary. 06/03/24 1303 <Electronically signed by Jaylon Galicia MD> Cosigner Signature (if applicable): CC: Karuna MCBRIDE WEDDING CAKE DESIGNERIsrealC Carina ~ Signed [facility] Work Phone: Evaluation + Plan note No data available for this section [facility] Evaluation noteNo assessment information available [facility] Work Phone: Evaluation note* Diagnosis Onset Date Resolution Status Dysmenorrhea acute Hirsutism acute Oligomenorrhea acute Hypertension chronic Encounter for routine gynecological examination noneactive [facility] Work Phone: Evaluation note* Diagnosis Nausea and vomiting, unspecified vomiting type- Primary Dizziness Dizziness and giddiness documented in this encounter [facility] note* Diagnosis Onset Date Resolution Status Dysmenorrhea acute Hirsutism acute Oligomenorrhea acute Hypertension chronic Encounter for routine gynecological examination noneactive Dysmenorrhea acute Hirsutism acute Oligomenorrhea acute [facility] Work Phone: Evaluation note* Diagnosis Dental infection- Primary Acute apical periodontitis of pulpal origin [facility]* Diagnosis Onset Date Resolution Status Dysmenorrhea acute Hirsutism acute Oligomenorrhea acute [facility] Work Phone: evaluation note* Diagnosis Onset Date Resolution Status Nausea vomiting and diarrhea chronic [facility] Work Phone: Evaluation note* Diagnosis Onset Date Resolution Status Nausea vomiting and diarrhea chronic Oligomenorrhea acute Vaginitis noneactive [facility] Work Phone: Evaluation note* Diagnosis Onset Date Resolution Status Gastroparesis chronic Nausea vomiting and diarrhea chronic [facility] Work Phone: Evaluation note* Diagnosis Onset Date Resolution Status Crohn's disease acute Gastroparesis chronic Nausea vomiting and diarrhea chronic Dysmenorrhea acute Hirsutism acute Oligomenorrhea acute Encounter for routine gynecological examination noneactive Hydradenitis noneactive [facility] Work Phone: Evaluation note* Diagnosis Onset Date Resolution Status Crohn's disease acute Gastroparesis chronic Nausea vomiting and diarrhea chronic Dysmenorrhea acute Hirsutism acute Oligomenorrhea acute Encounter for routine gynecological examination noneactive Hydradenitis noneactive Cellulitis acute Syncope acute [facility] Work Phone: Evaluation note* Diagnosis Onset Date Resolution Status Syncope resolved Crohn's disease chronic Fatty liver chronic Gastroparesis chronic Nausea vomiting and diarrhea chronic [facility] Work Phone: Evaluation note* Diagnosis Onset Date Resolution Status Syncope resolved Crohn's disease chronic Fatty liver chronic Gastroparesis chronic Nausea vomiting and diarrhea chronic Bipolar 1 disorder chronic Diabetes chronic Obesity chronic [facility] Work Phone: Evaluation note* Diagnosis Onset Date Resolution Status Crohn's disease chronic Fatty liver chronic Gastroparesis chronic Nausea vomiting and diarrhea chronic Bipolar 1 disorder chronic Diabetes chronic Obesity [facility] Work Phone: evaluation note* Diagnosis Dizziness- Primary Dizziness and giddiness Headache, unspecified headache type [facility]* Diagnosis Onset Date Resolution Status Bipolar 1 disorder chronic Diabetes chronic Obesity [facility] Work Phone: Evaluation note* Diagnosis Impacted cerumen of left ear- Primary Impacted cerumen documented in this encounter [facility] note* Diagnosis PCOS (polycystic ovarian syndrome)- Primary Polycystic ovaries Obesity, Class III, BMI 40-49.9 (morbid obesity) (HCC) Morbid obesity documented in this encounter [facility] note* Diagnosis Pain- Primary Generalized pain documented in this encounter [facility] note* Diagnosis Foot pain, left Pain in limb Sprain of ligament of left ankle, initial encounter documented in this encounter [facility] note* Diagnosis Chronic migraine without aura, intractable, without status migrainosus (CMS/HCC) [facility]* Diagnosis Morbid obesity with BMI of 45.0-49.9, adult (CMS/HCC)- Primary Chronic migraine without aura, intractable, without status migrainosus (CMS/HCC) [facility]* Diagnosis PCOS (polycystic ovarian syndrome)- Primary Polycystic ovaries Obesity, Class III, BMI 40-49.9 (morbid obesity) (HCC) Morbid obesity documented in this encounter [facility] note* Diagnosis Sore throat- Primary Acute pharyngitis URI, acute Acute upper respiratory infections of unspecified site documented in this encounter [facility] note* Diagnosis Acute otitis media, left- Primary Unspecified otitis media Acute otitis externa of left ear, unspecified type documented in this encounter [facility] note* Diagnosis PCOS (polycystic ovarian syndrome)- Primary Polycystic ovaries Obesity, Class III, BMI 40-49.9 (morbid obesity) (HCC) Morbid obesity documented in this encounter [facility] note* Diagnosis Influenza-like illness- Primary Influenza with other respiratory manifestations documented in this encounter [facility] note* Diagnosis Obesity, Class III, BMI 40-49.9 (morbid obesity) (HCC)- Primary Morbid obesity PCOS (polycystic ovarian syndrome) Polycystic ovaries [facility]* Diagnosis Obesity, Class III, BMI 40-49.9 (morbid obesity) (HCC)- Primary Morbid obesity Type 2 diabetes mellitus with other specified complication, without long-term current use of insulin (HCC) Primary hypertension Unspecified essential hypertension Binge eating disorder, moderate Hypercholesterolemia Pure hypercholesterolemia Gastroparesis Steatosis of liver Other chronic nonalcoholic liver disease 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, requiring support (level 1) ([facility]) PCOS (polycystic ovarian syndrome) Polycystic ovaries Irritable bowel syndrome with diarrhea Irritable bowel syndrome Bipolar affective disorder, remission status unspecified ([facility]) Palpitations Hirsutism History of suicidal ideation Personal history of other mental disorder documented in this encounter [facility] note* Diagnosis Bipolar affective disorder, currently depressed, mild (HCC)- Primary Bipolar I disorder, most recent episode (or current) depressed, mild Obesity, Class III, BMI 40-49.9 (morbid obesity) ([facility]) Morbid obesity Binge eating disorder, moderate Generalized anxiety disorder documented in this encounter [facility] note* Diagnosis PCOS (polycystic ovarian syndrome) Polycystic ovaries Obesity, Class III, BMI 40-49.9 (morbid obesity) Morbid obesity documented in this [facility]* Diagnosis PCOS (polycystic ovarian syndrome) [E28.2]- Primary Polycystic ovaries [facility]* Diagnosis Obesity, Class III, BMI 40-49.9 (morbid obesity) (HCC)- Primary Morbid obesity Binge eating disorder, moderate Bipolar affective disorder, currently depressed, mild (HCC) Bipolar I disorder, most recent episode (or current) depressed, mild Generalized anxiety disorder documented [facility] this [facility]* Diagnosis Obesity, Class III, BMI 40-49.9 (morbid obesity) (HCC) Morbid obesity Type 2 diabetes mellitus with other specified complication, without long-term current use of insulin ([facility]) Palpitations documented in this encounter [facility] note* Diagnosis PCOS (polycystic ovarian syndrome) Polycystic ovaries Obesity, Class III, BMI 40-49.9 (morbid obesity) (HCC) Morbid obesity documented in this encounter [facility]* Diagnosis PCOS (polycystic ovarian syndrome)- Primary Polycystic ovaries [facility] Diagnosis Binge eating disorder, moderate- Primary Bipolar affective disorder, currently depressed, mild (HCC) Bipolar I disorder, most recent episode (or current) depressed, mild Generalized anxiety disorder [facility]* Diagnosis PCOS (polycystic ovarian syndrome)- Primary Polycystic ovaries Class 3 severe obesity without serious comorbidity with body mass index (BMI) of 45.0 to 49.9 in adult, unspecified obesity type (HCC) documented in this encounter [facility] Author [facility] August 08, 2022 2:27pm Note Date/Time August 08, 2022 2:27 pm [facility] Medical Records Department [address] [place] [address] History & Physical Exam 08/08/22 1426 MR#: [id number] Acct: [id number] Name: MARION GUTIERREZ Rep #:[id number] : 1995 26 From: Andreas Oliva DO PCP: [facility] [place] [place] [address] History and Physical Date of Admission: 08/08/22 MARION GUTIERREZ, is a 26 F who presents to the office today for PMH autism, bipolar type 1, PCOS [facility] ED on multiple occasions over the [...] hemorrhoids without visual abnormality. Without pathologic changes. [facility] ED visits continue as noted above. US RUQ 11.26.20?abd pain hepatomegaly 19cm with fatty infiltration. US ABD 11.30.21?abd pain hepatomegaly 20.2cm with fatty infiltration; splenomegaly. No ascites. Biochemical workup ?T3, T4, CBC, CMP, TIBC, iron, ferritin, copper, zinc,selenium without pertinent abnormality. ? TSH H4.91 [facility] ED visit prompting referral 01.24.22 with [...] TSH H4.77; T4WNL. *BGI established 02.15.22 following [facility] ED presentation. Marion has had multipleED [...] Exam Const General: cooperative Nutritional Appearance: obese [facility] Head: normal to inspection Ears: TM's normal bilaterally Nose: external nose normal Face and sinus: normal facial exam Mouth: oral mucosae normal Throat: posterior oropharynx normal Neck Lymphatic: no lymphadenopathy noted Resp Effort & Inspection: normal respiratory effort Auscultation: Bilateral: Clear to Auscultation Cardio Rate: regular rate Rhythm: regular rhythm Quality Reporting Tobacco Screening ([facility] 138) Smoking Status: Never smoker Assessment and [...] na usea and vomiting ? ? Discontinued rkblpz-kstlugij-snewaqu 40,000-126,000- 168,000 unit (Zenpep) ?? take three capsules with meals ?? Discontinued Reason:? Order Completed 3 caps? PO TID 189 caps 0RF MARION GUTIERREZ, is a 26 F who presents to the office today for PMH autism, bipolar type 1, PCOS [facility] ED on multiple occasions over the [...] hemorrhoids without visual abnormality. Without pathologic changes. [facility] ED visits continue as noted above. US RUQ 10..21?abd pain hepatomegaly 19cm with fatty infiltration. US ABD 11.30.21?abd pain hepatomegaly 20.2cm with fatty infiltration; splenomegaly. No ascites. Biochemical workup ?T3, T4, CBC, CMP, TIBC, iron, ferritin, copper, zinc,selenium without pertinent abnormality. ? TSH H4.91 [facility] ED visit prompting referral 01.24.22 with [...] TSH H4.77; T4WNL. *BGI established 02.15.22 following [facility] ED presentation. Marion has had multipleED [...] Rhythm: regular rhythm Quality Reporting Tobacco Screening ([facility] 138) Smoking Status: Never smoker Assessment and [...] na usea and vomiting ? ? Discontinued ccbvrf-clcqbiwj-rqwtgjj 40,000-126,000- 168,000 unit (Zenpep) ?? take three capsules with meals ?? Discontinued Reason:? Order Completed 3 caps? PO TID 189 caps 0RF I have examined the patient and the H&P has been reviewed. There are no clinicalchanges since date of exam. 08/08/22 1427 <Electronically signed by Andreas Oliva DO> Cosigner Signature (if applicable): CC: Andreas Oliva DO; [facility]~ Signed [facility] Work Phone: Hospital Discharge instructions Additional Instructions Your CT showed some colitis on the right which is consistent with your pain. Please follow-up with your GI doctor. You been placed on a course of antibiotics.[facility] Work Phone: Hospital Discharge instructions Additional Instructions Call your primary care physician tomorrow for further instructions on your Victoza.[facility] Work Phone: Hospital Discharge instructions Additional Instructions Continue your Reglan as needed. Small amounts of water to keep yourself hydrated.[facility] Work Phone: Hospital Discharge instructions Additional Instructions Today you had a negative cardiac workup. Please continue to follow-up outpatient. Negative chest x-ray, troponin, D-dimer. Please return for any worsening symptomsW[facility] Work Phone: Hospital Discharge instructions Additional Instructions Follow-up your doctor in outpatient setting. Return with worsening symptoms or concerns. Your CT today did not show anything surgical. Use the prescriptions are sent to your pharmacy as prescribed.[facility] Work Phone: Hospital Discharge instructions Additional Instructions Follow with your primary care physician outpatient setting. Return with worsening symptoms or concerns. Chest x-ray is normal and your blood work was normal. Use your Reglan that you have at home for nausea and vomiting.[facility] Work Phone: Hospital Discharge instructionsAdditional Instructions [...] the ER should you have any further concernsWGrant Hospital Work Phone: Hospital Discharge instructionsAdditional Instructions Follow-up with gastroenterology as soon as possible. You will be contacted should your C. difficile test be positive. Return with fever, new or worsening symptoms.[facility] Work Phone: Progress note Author Zeus Miller [facility] Note Date/Time December 09, 2024 9 :47am 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 IM [...] 1 12/09/24 Rx estradiol 0.035 mg tablet (Frio-Linyah) Is last menstrual period known: Yes Last [...] oriented to person and oriented to place [facility]WA Head: normal to inspection Neck Neck: normal [...] Dysuria Medications: New norgestimate-ethinyl estradiol 0.25-0.035 mg (Frio-Linyah) 1 TAB PO DAILY 84 tabs 4RF Plan Completed breast exam. Patient declines pelvic exam Reviewed diet and exercise Pap 2022. Discussed need for pelvic exam and pap next year Mammogram age 36 breast self exam encouraged monthly Contraception abstinence Refill oral contraceptives Urine culture RTO 1 year, prn with problems Zeus Miller CNP 12/09/24 0938 <Electronically signed by Zeus burt [employer] DES[employer]ER W[employer]ING [employer] DESIGNER-C> Date _ Zeus Miller [employer] DES[employer] DES[employer]-C Cosigner Signature: Date (if applicable) CC: ~ [facility] Work Phone: Reason for referral (narrative)No reason for referral information availableWGrant Hospital Work Phone: Summary Purpose Family History Relationship Condition Age at Onset Recorded Date/T harjeet Not Specified Diabetes mellitus Unknown Depression Unknown Cardiac disease Unknown Hyperlipidemia Unknown Gastroesophageal reflux disease Unknown Hypertension Unknown Asthma Unknown mother Malignant neoplasm of uterus Unknown Advance Directives Advance Directive Response Recorded Date/ Time Living Will No January 18 9:17pm Power of Car Inspector No January 18, 2021 9:17pm Advance Directive Response Recorded Date/ Time Living Will No August 16, 2021 8:30pm Power of Car Inspector No August 16 8:30pm Advance Directive Response Recorded Date/ Time Living Will No August 29, 2021 8:19pm Power of Car Inspector No August 29 8:19pm Advance Directive Response Recorded Date/ Time Living Will No September 03, 2021 11:58am Power of Car Inspector No September 03 11:58am Advance Directive Response Recorded Date/ Time Living Will No September 10, 2021 2:46am Power of Car Inspector No September 10 2:46am Advance Directive Response Recorded Date/ Time Living Will No January 24 8:04pm Power of Car Inspector No January 24, 2022 8:04pm Advance Directive Response Recorded Date/ Time Living Will No August 04, 2022 10:54am Power of Car Inspector No August 04 10:54am Advance Directive Response Recorded Date/ Time Living Will No August 15, 2022 7:13pm Power of Car Inspector No August 15 7:13pm Advance Directive Response Recorded Date/ Time Living Will No November 22 9:47pm Power of Car Inspector No November 22 9:47pm Advance Directive Response Recorded Date/ Time Living Will No December 09 8:10pm Power of Car Inspector No December 09, 2022 8:10pm Advance Directive Response Recorded Date/ Time Living Will No December 18 5:01pm Power of Car Inspector No December 18, 2022 5:01pm Advance Directive Response Recorded Date/ Time Living Will No December 18 7:24pm Power of Car Inspector No December 18, 2022 7:24pm Advance Directive Response Recorded Date/ Time Living Will No December 18 6:24pm Power of Car Inspector No December 18, 2022 6:24pm Advance Directive Response Recorded Date/ Time Living Will No April 07 024 4:17pm Power of Car Inspector No April 07, 2023 4:17pm Advance Directive Response Recorded Date/ Time Living Will No May 08, 2023 2:47pm Power of Car Inspector No May 07 2:47pm Advance Directive Response Recorded Date/ Time Living Will No June 03, 2023 8:45pm Power of Car Inspector No June 02 8:45pm Advance Directive Response Recorded Date/ Time Living Will No November 26 10:03pm Power of Car Inspector No November 26 024 10:03pm Advance Directive Response Recorded Date/ Time Living Will No November 26 10:03pm Do you have a Healthcare Power of Car Inspector? No November 27, 2023 10:03pm Living Will No May 08, 2024 3:41pm Do you have a Healthcare Power of Car Inspector? No May 08, 2024 3:41pm Advance Directive Response Recorded Date/ Time Living Will No May 08, 2024 3:41pm Do you have a Healthcare Power of Car Inspector? No May 08, 2024 3:41pm Living Will No May 14, 2024 10:34pm Do you have a Healthcare Power of Car Inspector? No May 14, 2024 10:34pm Advance Directive Response Recorded Date/ Time Living Will No May 08, 2024 3:41pm Do you have a Healthcare Power of Car Inspector? No May 08, 2024 3:41pm Living Will No May 14, 2024 10:34pm Do you have a Healthcare Power of Car Inspector? No May 14, 2024 10:34pm Living Will No June 03, 2024 8:41am Do you have a Healthcare Power of Car Inspector? No June 03, 2024 8:41am Advance Directive Response Recorded Date/ Time Living Will No July 10, 2023 9 :36am Do you have a Healthcare Power of Car Inspector? No July 10, 2023 9:36am Living Will No May 08, 2024 3:41pm Do you have a Healthcare Power of Car Inspector? No May 08, 2024 3:41pm Living Will No May 14, 2024 10:34pm Do you have a Healthcare Power of Car Inspector? No May 14, 2024 10:34pm Living Will No June 03, 2024 8:41am Do you have a Healthcare Power of Car Inspector? No June 03, 2024 8:41am Advance Directive Response Recorded Date/ Time Living Will No July 10, 2023 9 :36am Do you have a Healthcare Power of Car Inspector? No July 10, 2023 9:36am Living Will No May 08, 2024 3:41pm Do you have a Healthcare Power of Car Inspector? No May 08, 2024 3:41pm Living Will No May 14, 2024 10:34pm Do you have a Healthcare Power of Car Inspector? No May 14, 2024 10:34pm Do you have a Healthcare Power of Car Inspector? No September 04, 2024 9:13pm Living Will No June 03, 2024 8:41am Do you have a Healthcare Power of Car Inspector? No June 03, 2024 8:41am Advance Directive Response Recorded Date/ Time Living Will No July 10, 2023 9 :36am Do you have a Healthcare Power of Car Inspector? No July 10, 2023 9:36am Living Will No May 14, 2024 10:34pm Do you have a Healthcare Power of Car Inspector? No May 14, 2024 10:34pm Do you have a Healthcare Power of Car Inspector? No September 04, 2024 9:13pm Living Will No June 03, 2024 8:41am Do you have a Healthcare Power of Car Inspector? No June 03, 2024 8:41am Advance Directive Response Recorded Date/ Time Living Will No July 10, 2023 9 :36am Do you have a Healthcare Power of Car Inspector? No July 10, 2023 9:36am Do you have a Healthcare Power of Car Inspector? No September 04, 2024 9:13pm Do you have a Healthcare Power of Car Inspector? No September 21, 2024 8:41pm Living Will No June 03, 2024 8:41am Do you have a Healthcare Power of Car Inspector? No June 03, 2024 8:41am Advance Directive Response Recorded Date/ Time Living Will No July 10, 2023 9 :36am Do you have a Healthcare Power of Car Inspector? No July 10, 2023 9:36am Do you have a Healthcare Power of Car Inspector? No September 04, 2024 9:13pm Do you have a Healthcare Power of Car Inspector? No September 21, 2024 8:41pm Living Will No June 03, 2024 8:41am Do you have a Healthcare Power of Car Inspector? No June 03, 2024 8:41am Do you have a Healthcare Power of Car Inspector? No September 27, 2024 1:22pm Advance Directive Response Recorded Date/ Time Living Will No July 10, 2023 9 :36am Do you have a Healthcare Power of Car Inspector? No July 10, 2023 9:36am Do you have a Healthcare Power of Car Inspector? No September 04, 2024 9:13pm Do you have a Healthcare Power of Car Inspector? No September 21, 2024 8:41pm Do you have a Healthcare Power of Car Inspector? No 2024 10:50am Do you have a Healthcare Power of Car Inspector? No September 27, 2024 1:22pm Advance Directive Response Recorded Date/ Time Do you have a Healthcare Power of Car Inspector? No September 04, 2024 9:13pm Do you have a Healthcare Power of Car Inspector? No September 21, 2024 8:41pm Do you have a Healthcare Power of Car Inspector? No 2024 10:50am Do you have a Healthcare Power of Car Inspector? No September 27, 2024 1:22pm Do you have a Healthcare Power of Car Inspector? No November 18, 2024 3:28pm Advance Directive Response Recorded Date/ Time Do you have a Healthcare Power of Car Inspector? No September 04, 2024 8:13pm Do you have a Healthcare Power of Car Inspector? No September 21, 2024 7:41pm Do you have a Healthcare Power of Car Inspector? No 2024 9:50am Do you have a Healthcare Power of Car Inspector? No September 27, 2024 12:22pm Do you have a Healthcare Power of Car Inspector? 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 Reason for Visit Dysmenorrhea Hirsutism Oligomenorrhea Hypertension Encounter for routine gynecological examination Chief Complaint 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 Reason for Visit Dysmenorrhea Hirsutism Oligomenorrhea Hypertension Encounter for routine gynecological examination Chief Complaint 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 NAUEA/VOMITING Reason for Visit Dysmenorrhea Hirsutism Oligomenorrhea Hypertension Encounter for routine gynecological examination Chief Complaint 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 NAUEA/VOMITING SI Reason for Visit Dysmenorrhea Hirsutism Oligomenorrhea Hypertension Encounter for routine gynecological examination Chief Complaint 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 NAUEA/VOMITING SI pap exam, med [...] PAIN 2 WK FU CROHN'S DISEASE 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) CHRONIC MIGRAINE Reason for Visit Crohn's disease Gastroparesis Nausea vomiting and diarrhea Dysmenorrhea Hirsutism Oligomenorrhea Encounter for routine gynecological examination Hydradenitis Chief Complaint ABD PAIN 2 WK FU CROHN'S DISEASE 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) CHRONIC MIGRAINE HYPOGLYCEMIA Reason for Visit Crohn's disease Gastroparesis Nausea vomiting and diarrhea Dysmenorrhea Hirsutism Oligomenorrhea Encounter for routine gynecological examination Hydradenitis Chief Complaint ABD PAIN 2 WK FU CROHN'S DISEASE 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) CHRONIC MIGRAINE HYPOGLYCEMIA N/V/D, SYNCOPE, HYPOTENSION Reason for Visit Crohn's disease Gastroparesis Nausea vomiting and diarrhea Dysmenorrhea Hirsutism Oligomenorrhea Encounter for routine gynecological examination Hydradenitis Chief Complaint 2 WK FU CROHN'S DISEASE 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) CHRONIC MIGRAINE HYPOGLYCEMIA N/V/D, SYNCOPE, HYPOTENSION Reason for Visit Crohn's disease Gastroparesis Nausea vomiting and diarrhea Dysmenorrhea Hirsutism Oligomenorrhea Encounter for routine gynecological examination Hydradenitis Chief Complaint 2 WK FU CROHN'S DISEASE 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) CHRONIC MIGRAINE HYPOGLYCEMIA N/V/D, SYNCOPE, HYPOTENSION SYNCOPE Reason for Visit Crohn's disease Gastroparesis Nausea vomiting and diarrhea Dysmenorrhea Hirsutism Oligomenorrhea Encounter for routine gynecological examination Hydradenitis Cellulitis Syncope Chief Complaint 2 WK FU CROHN'S DISEASE 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) CHRONIC MIGRAINE HYPOGLYCEMIA N/V/D, SYNCOPE, HYPOTENSION Syncope [...] RT ARM MUCH GREATER THAN LT ARM Nh y 2024 9:41am 1 Y FU July [...] RT ARM MUCH GREATER THAN LT ARM Nh 2024 9:41am 1 Y FU July 08, [...] RT ARM MUCH GREATER THAN LT ARM Nh y 2024 9:41am 1 Y FU July [...] RT ARM MUCH GREATER THAN LT ARM Nh y 2024 9:41am 1 Y FU July [...] 3:22pm Dizziness (cardiology) November 28 1:10pm 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) December 09, 2024 8 :24am Reason for [...] Obesity, Class III, BMI 40-49.9 (morbid obesity) ([facility]) Procedures ENDOCRINOLOGY DIETITIAN VISIT (MNT) MEDICAL NUTRITION ASSMT&IVNTJ INDIV EACH 15 [place] MEDICAL NUTRITION ASSMT&IVNTJ INDIV EACH 15 [place] MEDICAL NUTRITION ASSMT&IVNTJ INDIV EACH 15 [place] MEDICAL NUTRITION ASSMT&IVNTJ INDIV EACH 15 [place] Jey Johnson MD [address] [place] [address] Referral ID Status Reason Start Date Expiration Date Visits Requested Visits Authorized [id number] Authorized PCP Requested Referral 4 01/07/2025 1 1 Additional Source Comments INFORMATION SOURCE (unrecogn ized section and content) DATE CREATED AUTHOR 08/14/2017 [facility] DATE CREATED AUTHOR AUTHOR'S ORGANIZ ATION 08/14/2017 [facility] DATE CREATED AUTHOR AUTHOR'S ORGANIZ ATION 02/16/2021 [facility] DATE CREATED AUTHOR AUTHOR'S ORGANIZ ATION 12/19/2022 [facility] ([place]) DATE CREATED AUTHOR AUTHOR'S ORGANIZ ATION 04/18/2023 [facility] DATE CREATED AUTHOR AUTHOR'S ORGANIZ ATION 01/02/2024 [facility] EPIC DATE CREATED AUTHOR AUTHOR'S ORGANIZ ATION 05/17/2024 [facility] DATE CREATED AUTHOR AUTHOR'S ORGANIZ ATION 12/20/2024 [facility] DATE CREATED AUTHOR AUTHOR'S ORGANIZ ATION 12/23/2024 [facility] Goals (unrecognized section and content) Goals may be documented in a n alternate section Source Comments (unrecognize d section and content) In the event this informatio n is protected by the Federal Confidentiality of Alcohol and Drug Abuse Patient Records regulations: The Federal rules restrict any use of the information to criminally investigate or prosecute any alcohol or drug abuse patient.TrihealthIn the event this information is protected by the Federal Confidentiality of Alcohol and Drug Abuse Patient Records regulations: The Federal rules restrict any use of the information to criminally investigate or prosecute any alcohol or drug abuse patient.TrihealthIn the event this information is protected by the Federal Confidentiality of Alcohol and Drug Abuse Patient Records regulations: The Federal rules restrict any use of the information to criminally investigate or prosecute any alcohol or drug abuse patient.TrihealthIn the event this information is protected by the Federal Confidentiality of Alcohol and Drug Abuse Patient Records regulations: The Federal rules restrict any use of the information to criminally investigate or prosecute any alcohol or drug abuse patient.TrihealthIn the event this information is protected by the Federal Confidentiality of Alcohol and Drug Abuse Patient Records regulations: The Federal rules restrict any use of the information to criminally investigate or prosecute any alcohol or drug abuse patient.TrihealthIn the event this information is protected by the Federal Confidentiality of Alcohol and Drug Abuse Patient Records regulations: The Federal rules restrict any use of the information to criminally investigate or prosecute any alcohol or drug abuse patient.TrihealthIn the event this information is protected by the Federal Confidentiality of Alcohol and Drug Abuse Patient Records regulations: The Federal rules restrict any use of the information to criminally investigate or prosecute any alcohol or drug abuse patient.TrihealthIn the event this information is protected by the Federal Confidentiality of Alcohol and Drug Abuse Patient Records regulations: The Federal rules restrict any use of the information to criminally investigate or prosecute any alcohol or drug abuse patient.TrihealthIn the event this information is protected by the Federal Confidentiality of Alcohol and Drug Abuse Patient Records regulations: The Federal rules restrict any use of the information to criminally investigate or prosecute any alcohol or drug abuse patient.TrihealthIn the event this information is protected by the Federal Confidentiality of Alcohol and Drug Abuse Patient Records regulations: The Federal rules restrict any use of the information to criminally investigate or prosecute any alcohol or drug abuse patient.TrihealthIn the event this information is protected by the Federal Confidentiality of Alcohol and Drug Abuse Patient Records regulations: The Federal rules restrict any use of the information to criminally investigate or prosecute any alcohol or drug abuse patient.TrihealthIn the event this information is protected by the Federal Confidentiality of Alcohol and Drug Abuse Patient Records regulations: The Federal rules restrict any use of the information to criminally investigate or prosecute any alcohol or drug abuse patient.TrihealthIn the event this information is protected by the Federal Confidentiality of Alcohol and Drug Abuse Patient Records regulations: The Federal rules restrict any use of the information to criminally investigate or prosecute any alcohol or drug abuse patient.TrihealthIn the event this information is protected by the Federal Confidentiality of Alcohol and Drug Abuse Patient Records regulations: The Federal rules restrict any use of the information to criminally investigate or prosecute any alcohol or drug abuse patient.TrihealthIn the event this information is protected by the Federal Confidentiality of Alcohol and Drug Abuse Patient Records regulations: The Federal rules restrict any use of the information to criminally investigate or prosecute any alcohol or drug abuse patient.TrihealthIn the event this information is protected by the Federal Confidentiality of Alcohol and Drug Abuse Patient Records regulations: The Federal rules restrict any use of the information to criminally investigate or prosecute any alcohol or drug abuse patient.TrihealthIn the event this information is protected by the Federal Confidentiality of Alcohol and Drug Abuse Patient Records regulations: The Federal rules restrict any use of the information to criminally investigate or prosecute any alcohol or drug abuse patient.TrihealthIn the event this information is protected by the Federal Confidentiality of Alcohol and Drug Abuse Patient Records regulations: The Federal rules restrict any use of the information to criminally investigate or prosecute any alcohol or drug abuse patient.TrihealthIn the event this information is protected by the Federal Confidentiality of Alcohol and Drug Abuse Patient Records regulations: The Federal rules restrict any use of the information to criminally investigate or prosecute any alcohol or drug abuse patient.TrihealthIn the event this information is protected by the Federal Confidentiality of Alcohol and Drug Abuse Patient Records regulations: The Federal rules restrict any use of the information to criminally investigate or prosecute any alcohol or drug abuse patient.TrihealthIn the event this information is protected by the Federal Confidentiality of Alcohol and Drug Abuse Patient Records regulations: The Federal rules restrict any use of the information to criminally investigate or prosecute any alcohol or drug abuse patient.TrihealthIn the event this information is protected by the Federal Confidentiality of Alcohol and Drug Abuse Patient Records regulations: The Federal rules restrict any use of the information to criminally investigate or prosecute any alcohol or drug abuse patient.TrihealthIn the event this information is protected by the Federal Confidentiality of Alcohol and Drug Abuse Patient Records regulations: The Federal rules restrict any use of the information to criminally investigate or prosecute any alcohol or drug abuse patient.TrihealthIn the event this information is protected by the Federal Confidentiality of Alcohol and Drug Abuse Patient Records regulations: The Federal rules restrict any use of the information to criminally investigate or prosecute any alcohol or drug abuse patient.TrihealthIn the event this information is protected by the Federal Confidentiality of Alcohol and Drug Abuse Patient Records regulations: The Federal rules restrict any use of the information to criminally investigate or prosecute any alcohol or drug abuse patient.TrihealthIn the event this information is protected by the Federal Confidentiality of Alcohol and Drug Abuse Patient Records regulations: The Federal rules restrict any use of the information to criminally investigate or prosecute any alcohol or drug abuse patient.TrihealthIn the event this information is protected by the Federal Confidentiality of Alcohol and Drug Abuse Patient Records regulations: The Federal rules restrict any use of the information to criminally investigate or prosecute any alcohol or drug abuse patient.TrihealthIn the event this information is protected by the Federal Confidentiality of Alcohol and Drug Abuse Patient Records regulations: The Federal rules restrict any use of the information to criminally investigate or prosecute any alcohol or drug abuse patient.[facility] Teams (unrecognized sec tion and content) Team Status: Active Member Role Status Dates Naina MCBRIDE, [employer]-C Primary Care Provider Activ e Team Status: Inactive Member Role Status Dates Naina Da Silva VSKimi, [employer]-C Primary Care Provider Activ e Start: January 14, 2024 End: January 14, 2024 Naina Da Silva VSC, [employer]-C Referring Provider Active Start: January 14, 2024 End: January 14, 2024 Dr. Marco Bartlett MD Attending Provider Active Start: January 14, 2024 End: January 14, 2024 Team Status: Inactive Member Role Status Dates Naina Da Silva VSC, [employer] Primary Care Provider Activ e Start: February 05, 2024 End: February 05, 2024 Zebulun Beam VSC, [employer]-C Attending Provider Active Start: February 05, 2024 End: February 05, 2024 Team Status: Inactive Member Role Status Dates Naina Da Silva VSC, [employer]-C Primary Care Provider Activ e Start: April 22, 2024 End: April 22, 2024 Zebulun Beam VSC, [employer]-C Attending Provider Active Start: April 22, 2024 End: April 22, 2024 Team Status: Active Member Role Status Dates Naina Da Silva VSC, [employer] Primary Care Provider Activ e Start: May 07, 2024 Zebulun Beam VSC, [employer]-C Attending Provider Active Start: May 07, 2024 Team Status: Inactive Member Role Status Dates Naina Da Silva VSC, [employer] Primary Care Provider Activ e Start: May 08, 2024 End: May 08, 2024 Dr. Stan Lin DO Referring Provider Active Start: May 08, 2024 End: May 08, 2024 Dr. Stan Lin DO Emergency Provider Active Start: May 08, 2024 End: May 08, 2024 Sweat Box Attendant Relationship Specialty Start Date End Date Crys Obiren PCP - General Family Practice 01/13/19 Ernesto Carter, DO Family Practice 06/15/16 Sweat Box Attendant Relationship Specialty Start Date End Date Crys Obrien PCP - General Family Medicine 01/13/19 Ernesto Carter, DO Family Medicine 06/15/16 Team Status: Active Member Role Status Dates [facility] Family Provider Active [facility] Primary Care Provider A ctive Team Status: Inactive Member Role Status Dates [facility] Primary Care Provider, Referring Provider Active Dr. Andreas Oliva DO Attending Provider Active Team Status: Inactive Member Role Status Dates [facility] Primary Care Provider, Referring Provider Active Zeus Miller [employer] DES[employer]ER, [employer]-C Attending Provider Active Team Status: Inactive Member Role Status [facility] Primary Care Provider A ctive WILLIAMS GREGORIO Attending Provider, Referring Provider Active Team Status: Inactive Member Role Status Dates [facility] Primary Care Provider A ctive Dr. Clay Causey MD Attending Provider, Referring Provider Active Vani Carlson , [employer] Other Provider Active Karina Guerra [employer], [employer] Other Provider Active Team Status: Inactive Member Role Status [facility] Primary C are Provider, Attending Provider, Referring Provider Active Naina Da Silva [employer] DES[employer]ER, [employer]-C Other Provider Active Team Status: Inactive Member Role Status [facility] Primary Care Provider A ctive Dr. Martin Pace , DO Attending Provider, Emergency P rovider Active Team Status: Inactive Member Role Status [facility] Primary Care Provider A ctive Dr. Coni Angelo , DO Attending Provider, Emergency P rovider Active Team Status: Inactive Member Role Status [facility] Primary Care Provider A ctive Dr. Andreas Oliva DO Attending Provider, Referring Provider Active Zeus Miller [employer]ER, [employer] Other Provider Active Team Status: Inactive Member Role Status [facility] Primary Care Provider A ctive Dr. Andreas Oliva DO Attending Provider, Referring Provider Active Team Status: Active Member Role Status [facility] Primary Care Provider A ctive Dr. Andreas Oliva DO Attending Provider, Referring Provider Active Team Status: Inactive Member Role Status [facility] Primary Care Provider A ctive Karina Guerra [employer]ER, [employer]-C Attending Provider, Referring Provider Active Zeus Miller [employer]ER, [employer] Other Provider Active Team Status: Active Member Role Status [facility] Primary Care Provider A ctive Dr. Andreas Oliva DO Attending Provid er, Referring Provider, Other Provider Active Team Status: Inactive Member Role Status [facility] Primary Care Provider A ctive Dr. David Etienne DO Emergency Provider Active Team Status: Inactive Member Role Status [facility] Primary Care Provider A ctive Dr. David Etienne DO Attending Provider, Emergency Provider Active Team Status: Inactive Member Role Status [facility] Primary Care Provider A ctive Dr. Andreas Oliva DO Attending Provider, Referring Provider Active Naina Da Silva [employer] CA[employer] DESIGNER, [employer]-C Other Provider Active Team Status: Inactive Member Role Status [facility] Primary Care Provider A ctive Dr. Nolan Lo MD Attending Provider, Referring Provider Active Team Status: Inactive Member Role Status Dates [facility] Primary Care Provider A ctive Zeus Miller [employer] DES[employer]ER, [employer]-C Attending Provider, Referring Provider Active Team Status: Inactive Member Role Status [facility] Primary Care Provider A ctive Dr. Ozzy Bright DO Emergency Provider Active Team Status: Inactive Member Role Status [facility] Primary Care Provider A ctive Dr. Ozzy Bright DO Attending Provider, Emergency P gerard Active Team Status: Inactive Member Role Status [facility] Primary Care Provider A ctive Rodolfo Das MD Emergency Provider Active Team Status: Inactive Member Role Status [facility] Primary Care Provider A ctive Rodolfo Das MD Attending Provider, Emergency Provid er Active Team Status: Active Member Role Status [facility] Primary Care Provider A ctive Dr. Sarah Purdy MD Emergency Provider Active Dr. Montana Wisdom DO Admit Provider, Attending Pro vider Active Team Status: Active Member Role Status [facility] Primary Care Provider A ctive Dr. Sarah Purdy MD Emergency Provider Active Dr. [place] Wisdom DO Admit Provider, Attending Provider, Other Provider Active Team Status: Active Member Role Status [facility] Primary Care Provider A ctive Dr. Garrick Mcgowan MD Attending Provider Active Team Status: Active Member Role Status [facility] Primary Care Provider A ctive Dr. Sarah Purdy MD Emergency Provider Active Dr. Montana Wisdom DO Admit Provider, Other Provide r Active Dr. Laura Li MD Attending Provider, Other Provid er Active Team Status: Inactive Member Role Status Dates [facility] Primary Care Provider A ctive Dr. Sarah Purdy MD Emergency Provider Active Dr. Montana Wisdom DO Admit Provider, Other Provide r Active Dr. Laura Li MD Attending Provider Active Team Status: Active Member Role Status Dates [facility] Family Provider Active Naina Da Silva [employer] DES[employer]ER, [employer]-C Primary Care Provider Active Team Status: Inactive Member Role Status Dates Naina Da Silva [employer] DES[employer]ER, [employer]-C Primary Care Provider Active Dr. Laura Li MD Attending Provider, Referring Pr ovider Active Team Status: Inactive Member Role Status Dates Naina Da Silva [employer]ER, [employer] Primary Care Provider Active Dr. Andreas Oliva DO Attending Provider, Referring Provider Active Team Status: Inactive Member Role Status Dates [facility] Referring Provider Acti ve Dr. Hubert Mo MD Attending Provider Active Naina Da Silva [employer] DES[employer]ER, [employer]-C Primary Care Provider Active Team Status: Inactive Member Role Status Dates Naina Da Sivla [employer] DES[employer]ER, [employer]-C Primary Care Provider Active Dr. Bridger Kamara DO Emergency Provider Active Team Status: Inactive Member Role Status Dates Naina Da Silva [employer]ER, [employer]-C Primary Care Provider Active Dr. Bridger Kamara DO Attending Provider, Emergency P gerard Active Team Status: Inactive Member Role Status Dates Naina Da Silva [employer]ER, [employer] Primary Care Provider Active Dr. Sarah Purdy MD Emergency Provider Active Sweat Box Attendant Relationship Specialty Start Date End Date [facility] [address] [place] [address] PCP - General 05/08/23 Ernesto Carter DO Family Medicine 06/15/16 Team Status: Inactive Member Role Status Dates Naina Da Silva [employer] DESIGNER, [employer]-C Primary Care Provider Active Dr. Sarah Purdy MD Attending Provider, Emergency Provider Active Team Status: Inactive Member Role Status Dates Naina Da Silva [employer] DES[employer]ER, [employer] Primary Care Provider Active Rodolfo Das MD Emergency Provider Active Sweat Box Attendant Relationship Specialty Start Date End Date [facility] PCP - General 05/08/23 Ernesto Carter DO Family Medicine 06/15/16 Naina Da Silva NP [address] [place] [address] Referring Family Medicine 09/05/23 Sweat Box Attendant Relationship Specialty Start Date End Date [facility], [facility] PCP - General 05/08/23 Ernesto Carter, DO Family Medicine 06/15/16 Naina Da Silva NP [address] [place] [address] Referring Family Medicine 09/05/23 Sweat Box Attendant Relationship Specialty Start Date End Date [facility] PCP - General 05/08/23 Ernesto Carter, DO Family Medicine 06/15/16 Naina Da Silva NP [address] [place], [place] [address] Referring Family Medicine 09/05/23 Sweat Box Attendant Relationship Specialty Start Date End Date Crys Obrien CNP PCP - General Family Medicine 01/13/19 05/07/23 Ernesto Carter, Family Medicine 06/15/16 Sweat Box Attendant Relationship Specialty Start Date End Date Unallocated, Noms MD Tabatha [address] [place] [address] PCP - General 07/31/22 Alisson Lake [employer] DESIGNER [address] [place] [address] PCP - [facility] 08/20/23 Sweat Box Attendant Relationship Specialty Start Date End Date Unallocated, Dcs MD Tabatha [address] [place] [id number] PCP - General 07/31/22 [place] [employer] [address] [place] [address] PCP - [facility] 08/20/23 Sweat Box Attendant Relationship Specialty Start Date End Date Unallocated, Noms MD Tabatha [address] [place] [address] PCP - General 07/31/22 [place] [employer] DESIGNER [address] [place] [address] PCP - [facility] 08/20/23 Sweat Box Attendant Relationship [facility] Start [facility] - [facility] 05/08/23 Ernesto Carter DO Family Medicine 06/15/16 Naina Da Silva NP [address] [place] [address] Referring Family Medicine 09/05/23 Sweat Box Attendant Relationship Specialty Start Date [facility] - [facility] 05/08/23 Ernesto Carter DO Family Medicine 06/15/16 Naina Da Silva NP [address] [place] [address] Referring Family Medicine 09/05/23 Sweat Box Attendant Relationship Specialty Start Date End Date Clinic, [facility] PCP - General 05/08/23 Ernesto Carter, Family Medicine 06/15/16 Naina Da Silva NP [address] [place] [address] Referring Family Medicine 09/05/23 Sweat Box Attendant Relationship Specialty Start Date End Date Clinic, Dnaiel Tierney PCP - General 05/08/23 Ernesto Carter DO Family Medicine 06/15/16 Naina Da Silva NP [address] [place] [address] Referring Family Medicine 09/05/23 Team Status: Active Member Role Status Dates Naina Da Silva [employer] DESIGNER, [employer]-C Primary Care Provider Active Dr. Johns Friend , DO Attending Provider, Referring Provider Active Sweat Box Attendant Relationship Specialty Start Date End Date [facility], [facility] PCP - General 05/08/23 Ernesto Carter DO Family Medicine 06/15/16 Naina Da Silva NP [address] [place] [address] Referring Family Medicine 09/05/23 Sweat Box Attendant Relationship Specialty Start Date End Date [facility], [facility] PCP - General 05/08/23 Ernesto Carter DO Family Medicine 06/15/16 Naina Da Silva NP [address] [place] [address] [phone] (work) Referring Family Medicine 09/05/23 Team Status: Active Member Role Status Dates [facility] Family Provider Active Naina Da Silva VSC, [employer]-C Primary Care Provider Activ e Team Status: Inactive Member Role Status Dates Naina Da Silva VSC, [employer]-C Primary Care Provider Activ e Start: May 14, 2024 End: May 15, 2024 Dr. Stan Lin , Emergency Provider Active Start: May 14, 2024 End: May 15, 2024 Team Status: Inactive Member Role Status Dates Naina Da Silva VSC, [employer] Primary Care Provider Activ e Start: May 07, 2024 End: May 07, 2024 Vazquezbudeb Lim VSC, [employer]-C Attending Provider Active Start: May 07, 2024 End: May 07, 2024 Team Status: Active Member Role Status Dates Karuna Beam VSC, [employer]-C Primary Care Provider Active Team Status: Inactive Member Role Status Dates Naina Da Silva VSC, [employer]-C Primary Care Provider Activ e Start: May [...] Role Status Dates Naina Da Silva DANIELLEC, [employer]-C Primary Care Provider Activ e Start: May 14, 2024 End: May 15, 2024 Dr. Stan Lin DO Attending Provider Active Start: May 14, 2024 End: May 15, 2024 Dr. Stan Lin DO Emergency Provider Active Start: May 14, 2024 End: May 15, 2024 Team Status: Inactive Member Role Status Dates Karina Guerra [employer] DES[employer]ER, [employer]-C Attending Provider Active Start: May 23, 2024 End: May 23, 2024 Karina Guerra [employer] DES[employer]ER, [employer]ER-C Referring Provider Active Start: May 23, 2024 End: May 23, 2024 Zebuluadalgisa Beam VSC, [employer]-C Primary Care Provider Active Start: May 23, 2024 End: May 23, 2024 Team Status: Inactive Member Role Status Dates Naina D aSilva VSC, [employer]-C Referring Provider Active Start: May 29, 2024 End: May 29, 2024 Shawanda Ramires [employer] DESIGNER, [employer]ER-C Attending Provider Active Start: May 29, 2024 End: May 29, 2024 Zebudeb Beam VSC, [employer]-C Primary Care Provider Active Start: May 29, 2024 End: May 29, 2024 Team Status: Inactive Member Role Status Dates Zebulun Beam VSC, [employer]-C Primary Care Provider Active Start: June 02, 2024 End: June 02, 2024 Ed Physician Provider Emergency Provider Active Start: June 02, 2024 End: June 02, 2024 Sweat Box Attendant Relationship Specialty Start Date End Date Daniel Olivas PCP - General 05/08/23 Ernesto Carter DO Family Medicine 06/15/16 Naina Da Silva NP [address] [place] [address] Referring Family Medicine 09/05/23 Team Status: Active Member Role Status Dates Zebulun Beam VSC, [employer]-C Primary Care Provider Active Start: June 03, 2024 Zebulun Beam VSC, [employer]-C Attending Provider Active Start: June 03, 2024 Zebulun Beam VSC, [employer]-C Referring Provider Active Start: June 03, 2024 Team Status: Inactive Member Role Status Dates Zebulun Beam VSC, [employer]-C Primary Care Provider Active Start: June 03, 2024 End: June 03, 2024 Dr. Jaylon Galicia MD Emergency Provider Active Start: June 03, 2024 End: June 03, 2024 Team Status: Inactive Member Role Status Dates Zebulun Beam VSC, [employer]-C Primary Care Provider Active Start: June 02, 2024 End: June 02, 2024 Ed Physician Provider Attending Provider Active Start: June 02, 2024 End: June 02, 2024 Ed Physician Provider Emergency Provider Active Start: June 02, 2024 End: June 02, 2024 Team Status: Inactive Member Role Status Dates Zebulun Beam VSC, [employer]-C Primary Care Provider Active Start: June 03, 2024 End: June 03, 2024 Zebulun Beam VSC, [employer]-C Attending Provider Active Start: June 03, 2024 End: June 03, 2024 Zebulun Beam VSC, [employer]-C Referring Provider Active Start: June 03, 2024 End: June 03, 2024 Team Status: Inactive Member Role Status Dates Zebulun Beam VSC, [employer]-C Primary Care Provider Active Start: June 03, 2024 End: June 03, 2024 Dr. Jaylon Galicia MD Attending Provider Active Start: June 03, 2024 End: June 03, 2024 Dr. Jaylon Galicia MD Emergency Provider Active Start: June 03, 2024 End: June 03, 2024 Team Status: Active Member Role Status Dates Zebulun Beam VSC, [employer]-C Primary Care Provider Active Start: June 05, 2024 Shawanda Ramires [employer] CAKE DESIGNER, [employer]ER-C Attending Provider Active Start: June 05, 2024 Shawanda Ramires [employer] CAKE DESIGNER, [employer]ER-C Referring Provider Active Start: June 05, 2024 Team Status: Inactive Member Role Status Dates Zebulun Beam VSC, [employer]-C Primary Care Provider Active Start: June 10, 2024 End: June 10, 2024 Zebulun Beam VSC, [employer]-C Attending Provider Active Start: June 10, 2024 End: June 10, 2024 Team Status: Inactive Member Role Status Dates Zebulun Beam VSC, [employer]-C Primary Care Provider Active Start: June 20, 2024 End: June 20, 2024 Shawanda Ramires [employer] CAKE DESIGNER, [employer] DES[employer]ER-C Attending Provider Active Start: June 20, 2024 End: June 20, 2024 Shawanda Ramires [employer] CA[employer] DESIGNER, [employer]ER-C Referring Provider Active Start: June 20, 2024 End: June 20, 2024 Team Status: Active Member Role Status Dates Zebulun Beam VSC, [employer]-C Primary Care Provider Active Start: June 20, 2024 Dr. Ozzy Greco MD Attending Provider Active S tart: June 20, 2024 Sweat Box Attendant Relationship Specialty Start Date End Date [facility], Daniel Tierney PCP - General 05/08/23 Ernesto Carter DO Family Medicine 06/15/16 Naina Da Silva NP [address] [place] [address] Referring Family [facility] 09/05/23 Team Status: Active Member Role Status Dates Zebudeb Beam VSC, [employer]-C Primary Care Provider Active Start: June 05, 2024 Dr. Marco Bartlett MD Attending Provider Active Start: June 05, 2024 Shawanda Ramires [employer] CAKE DESIGNER, [employer]ER-C Referring Provider Active Start: June 05, 2024 Team Status: Active Member Role Status Dates Zebuluadalgisa Beam VSC, [employer]-C Primary Care Provider Active Start: June 20, 2024 Dr. Ozzy Greco MD Attending Provider Active S tart: June 20, 2024 Shawanda Ramires [employer] CAKE DESIGNER, [employer] DESIGNER-C Referring Provider Active Start: June 20, 2024 Team Status: Inactive Member Role Status Dates Naina Da Silva VSC, [employer]-C Referring Provider Active Start: July 08, 2024 End: July 08, 2024 Dr. Andreas Oliva DO Attending Provider Active Start: July 08, 2024 End: July 08, 2024 Zebulun Beam VSC, [employer]-C Primary Care Provider Active Start: July 08, 2024 End: July 08, 2024 Sweat Box Attendant Relationship Specialty Start Date End Date Daniel Olivas PCP - General 05/08/23 Ernesto Carter DO Family Medicine 06/15/16 Naina Da Silva NP [address] [place] [address] Referring Family Medicine 09/05/23 Team Status: Inactive Member Role Status Dates Zebulun Beam VSC, [employer]-C Primary Care Provider Active Start: July 24, 2024 End: July 24, 2024 Zebulun Beam VSC, [employer]ER-C Referring Provider Active Start: July 24, 2024 End: July 24, 2024 Shawanda Ramires [employer] CAKE DESIGNER, [employer]ER-C Attending Provider Active Start: July 24, 2024 End: July 24, 2024 Sweat Box Attendant Relationship Specialty Start Date End Date Clinic, [facility] PCP - General 05/08/23 Ernesto Carter DO Family Medicine 06/15/16 Naina Da Silva NP [address] [place], [place] [address] Referring Family Medicine 09/05/23 Team Status: Inactive Member Role Status Dates Karuna Beam VSC, [employer]-C Primary Care Provider Active Start: August 07, 2024 End: August 07, 2024 Dr. Andreas Oliva DO Attending Provider Active Start: August 07, 2024 End: August 07, 2024 Dr. Andreas Oliva DO Referring Provider Active Start: August 07, 2024 End: August 07, 2024 Sweat Box Attendant Relationship Specialty Start Date End Date Clinic, [facility] PCP - General 05/08/23 Ernesto Carter DO Family Medicine 06/15/16 Naina Da Silva NP [address] [place], [place] [address] Referring Family Medicine 09/05/23 Sweat Box Attendant Relationship Specialty Start Date End Date [facility], Daniel Tierney PCP - General 05/08/23 Ernesto Carter DO Family Medicine 06/15/16 Naina Da Silva NP [address] [place], [place] [id number] Referring Family Medicine 09/05/23 Team Status: Active Member Role/Relationship Status Dates Karuna Lim VSC, [employer]-C Primary Care Provider Active Team Status: Inactive Member Role/Relationship Status Dates Naina SANTOSC, [employer]-C Primary Care Provider Activ e Start: May 07, 2024 End: May 07, 2024 Zebudeb Beam VSC, [employer]-C Attending Provider Active Start: May 07, 2024 End: May 07, 2024 Team Status: Inactive Member Role/Relationship Status Dates Naina Da Silva VSC, [employer]-C Primary Care Provider Activ e Start: May [...] Inactive Member Role/Relationship Status Dates Naina SANTOSC, [employer]-C Primary Care Provider Activ e Start: May 14, 2024 End: May 15, 2024 Dr. Stan Lin DO Attending Provider Active Start: May 14, 2024 End: May 15, 2024 Dr. Stan Lin DO Emergency Provider Active Start: May 14, 2024 End: May 15, 2024 Team Status: Inactive Member Role/Relationship Status Dates Karina Guerra [employer] DESIGNER, [employer]ER-C Attending Provider Active Start: May 23, 2024 End: May 23, 2024 Karina Guerra [employer], [employer] Referring Provider Active Start: May 23, 2024 End: May 23, 2024 Zebudeb Beam VSC, [employer] Primary Care Provider Active Start: May 23, 2024 End: May 23, 2024 Team Status: Inactive Member Role/Relationship Status Dates Naina Da Silva VSC, [employer] Referring Provider Active Start: May 29, 2024 End: May 29, 2024 Shawanda Ramires [employer], [employer] Attending Provider Active Start: May 29, 2024 End: May 29, 2024 Zebuluadalgisa Beam VSC, [employer] Primary Care Provider Active Start: May 29, 2024 End: May 29, 2024 Team Status: Inactive Member Role/Relationship Status Dates Karuna Beam VSC, [employer] Primary Care Provider Active Start: June 02, 2024 End: June 02, 2024 Ed Physician Provider Attending Provider Active Start: June 02, 2024 End: June 02, 2024 Ed Physician Provider Emergency Provider Active Start: June 02, 2024 End: June 02, 2024 Team Status: Inactive Member Role/Relationship Status Dates Zebulun Beam VSC, [employer] Primary Care Provider Active Start: June 03, 2024 End: June 03, 2024 Zebulun Beam VSC, [employer] Attending Provider Active Start: June 03, 2024 End: June 03, 2024 Zebulun Beam VSC, [employer] Referring Provider Active Start: June 03, 2024 End: June 03, 2024 Team Status: Inactive Member Role/Relationship Status Dates Zebulun Beam VSC, [employer] Primary Care Provider Active Start: June 03, 2024 End: June 03, 2024 Dr. Jaylon Galicia MD Attending Provider Active Start: June 03, 2024 End: June 03, 2024 Dr. Jaylon Galicia MD Emergency Provider Active Start: June 03, 2024 End: June 03, 2024 Team Status: Active Member Role/Relationship Status Dates Zebulun Beam VSC, [employer] Primary Care Provider Active Start: June 05, 2024 Shawanda Ramires [employer], [employer] Attending Provider Active Start: June 05, 2024 Shawanda Ramires [employer], [employer] Referring Provider Active Start: June 05, 2024 Team Status: Active Member Role/Relationship Status Dates Zebulun Beam VSC, [employer] Primary Care Provider Active Start: June 05, 2024 Dr. Marco Bartlett MD Attending Provider Active Start: June 05, 2024 Shawanda Ramires [employer], [employer] Referring Provider Active Start: June 05, 2024 Team Status: Inactive Member Role/Relationship Status Dates Zebulun Beam VSC, [employer] Primary Care Provider Active Start: June 10, 2024 End: June 10, 2024 Zebulun Beam VSC, [employer] Attending Provider Active Start: June 10, 2024 End: June 10, 2024 Team Status: Inactive Member Role/Relationship Status Dates Zebulun Beam VSC, [employer] Primary Care Provider Active Start: June 20, 2024 End: June 20, 2024 Shawanda Ramires [employer], [employer] Attending Provider Active Start: June 20, 2024 End: June 20, 2024 Shawnada Ramires [employer], [employer] Referring Provider Active Start: June 20, 2024 End: June 20, 2024 Team Status: Active Member Role/Relationship Status Dates Zebudeb Beam VSC, [employer] Primary Care Provider Active Start: June 20, 2024 Dr. Ozzy Greco MD Attending Provider Active S tart: June 20, 2024 Shawanda Ramires [employer], [employer] Referring Provider Active Start: June 20, 2024 Team Status: Inactive Member Role/Relationship Status Dates Naina Da Silva VSC, [employer] Referring Provider Active Start: July 08, 2024 End: July 08, 2024 Dr. Andreas Oliva DO Attending Provider Active Start: July 08, 2024 End: July 08, 2024 Zebulun Beam VSC, [employer] Primary Care Provider Active Start: July 08, 2024 End: July 08, 2024 Team Status: Inactive Member Role/Relationship Status Dates Zebudeb Lim VSC, [employer] Primary Care Provider Active Start: July 24, 2024 End: July 24, 2024 Zebudeb Beam VSC, [employer] Referring Provider Active Start: July 24, 2024 End: July 24, 2024 Shawanda Ramires [employer], [employer] Attending Provider Active Start: July 24, 2024 End: July 24, 2024 Team Status: Inactive Member Role/Relationship Status Dates Zebudeb Lim VSC, [employer] Primary Care Provider Active Start: August 07, 2024 End: August 07, 2024 Dr. Andreas Oliva DO Attending Provider Active Start: August 07, 2024 End: August 07, 2024 Dr. Andreas Oliva DO Referring Provider Active Start: August 07, 2024 End: August 07, 2024 Team Status: Active Member Role/Relationship Status Dates Karuna Lim VSC, [employer] Primary Care Provider Active Start: September 02, 2024 Naina Da Silva VSC, [employer] Attending Provider Active Start: September 02, 2024 Team Status: Inactive Member Role/Relationship Status Dates Zebudeb Beam VSC, [employer] Primary Care Provider Active Start: September 04, 2024 End: September 04, 2024 Dr. Alexandr Smith DO Emergency Provider Active Start: September 04, 2024 End: September 04, 2024 Team Status: Inactive Member Role/Relationship Status Dates Naina Avinash VSC, [employer] Primary Care Provider Activ e Start: May 14, 2024 End: May 15, 2024 Dr. Stan Lin , Attending Provider Active Start: May 14, 2024 End: May 15, 2024 Dr. Stan Lin , Emergency Provider Active Start: May 14, 2024 End: May 15, 2024 Team Status: Inactive Member Role/Relationship Status Dates Karina Guerra [employer], [employer] Attending Provider Active Start: May 23, 2024 End: May 23, 2024 Karina Guerra [employer], [employer] Referring Provider Active Start: May 23, 2024 End: May 23, 2024 Zebulun Beam VSC, [employer] Primary Care Provider Active Start: May 23, 2024 End: May 23, 2024 Team Status: Inactive Member Role/Relationship Status Dates Naina Da Silva VSC, [employer] Referring Provider Active Start: May 29, 2024 End: May 29, 2024 Shawanda Ramires [employer], [employer] Attending Provider Active Start: May 29, 2024 End: May 29, 2024 Zebulun Beam VSC, [employer] Primary Care Provider Active Start: May 29, 2024 End: May 29, 2024 Team Status: Inactive Member Role/Relationship Status Dates Zebulun Beam VSC, [employer] Primary Care Provider Active Start: June 02, 2024 End: June 02, 2024 Ed Physician Provider Attending Provider Active Start: June 02, 2024 End: June 02, 2024 Ed Physician Provider Emergency Provider Active Start: June 02, 2024 End: June 02, 2024 Team Status: Inactive Member Role/Relationship Status Dates Zebulun Beam VSC, [employer] Primary Care Provider Active Start: June 03, 2024 End: June 03, 2024 Zebulun Beam VSC, [employer] Attending Provider Active Start: June 03, 2024 End: June 03, 2024 Zebulun Beam VSC, [employer] Referring Provider Active Start: June 03, 2024 End: June 03, 2024 Team Status: Inactive Member Role/Relationship Status Dates Zebulun Beam VSC, [employer] Primary Care Provider Active Start: June 03, 2024 End: June 03, 2024 Dr. Jaylon Galicia MD Attending Provider Active Start: June 03, 2024 End: June 03, 2024 Dr. Jyalon Galicia MD Emergency Provider Active Start: June 03, 2024 End: June 03, 2024 Team Status: Active Member Role/Relationship Status Dates Zebudeb Beam VSC, [employer] Primary Care Provider Active Start: June 05, 2024 Shawanda Ramires [employer], [employer] Attending Provider Active Start: June 05, 2024 Shawanda Ramires [employer], [employer] Referring Provider Active Start: June 05, 2024 Team Status: Active Member Role/Relationship Status Dates Zebudeb Beam VSC, [employer] Primary Care Provider Active Start: June 05, 2024 Dr. Marco Bartlett MD Attending Provider Active Start: June 05, 2024 Shawanda Ramires [employer], [employer] Referring Provider Active Start: June 05, 2024 Team Status: Inactive Member Role/Relationship Status Dates Zebulun Beam VSC, [employer] Primary Care Provider Active Start: June 10, 2024 End: June 10, 2024 Zebulun Beam VSC, [employer] Attending Provider Active Start: June 10, 2024 End: June 10, 2024 Team Status: Inactive Member Role/Relationship Status Dates Zebudeb Beam VSC, [employer] Primary Care Provider Active Start: June 20, 2024 End: June 20, 2024 Shawanda Ramires [employer], [employer] Attending Provider Active Start: June 20, 2024 End: June 20, 2024 Shawanda Ramires [employer], [employer] Referring Provider Active Start: June 20, 2024 End: June 20, 2024 Team Status: Active Member Role/Relationship Status Dates Zebulun Beam VSC, [employer] Primary Care Provider Active Start: June 20, 2024 Dr. Ozzy Greco MD Attending Provider Active S tart: June 20, 2024 Shawanda Ramires [employer], [employer] Referring Provider Active Start: June 20, 2024 Team Status: Inactive Member Role/Relationship Status Dates Naina Da Silva VSC, [employer] Referring Provider Active Start: July 08, 2024 End: July 08, 2024 Dr. Andreas Oliva DO Attending Provider Active Start: July 08, 2024 End: July 08, 2024 Zebulun Beam VSC, [employer] Primary Care Provider Active Start: July 08, 2024 End: July 08, 2024 Team Status: Inactive Member Role/Relationship Status Dates Zebulun Beam VSC, [employer] Primary Care Provider Active Start: July 24, 2024 End: July 24, 2024 Vazquezbudeb Beam VSC, [employer] Referring Provider Active Start: July 24, 2024 End: July 24, 2024 Shawanda Ramires [employer], [employer] Attending Provider Active Start: July 24, 2024 End: July 24, 2024 Team Status: Inactive Member Role/Relationship Status Dates Zebueliezern Beam VSC, [employer] Primary Care Provider Active Start: August 07, 2024 End: August 07, 2024 Dr. Andreas Oliva DO Attending Provider Active Start: August 07, 2024 End: August 07, 2024 Dr. Andreas Oliva DO Referring Provider Active Start: August 07, 2024 End: August 07, 2024 Team Status: Inactive Member Role/Relationship Status Dates Zebudeb Beam VSC, [employer] Primary Care Provider Active Start: September 02, 2024 End: September 02, 2024 Naina Da Silva VSC, [employer] Attending Provider Active Start: September 02, 2024 End: September 02, 2024 Team Status: Inactive Member Role/Relationship Status Dates Zebueliezern Beam VSC, [employer] Primary Care Provider Active Start: September 04, 2024 End: September 04, 2024 Dr. Alexandr Smith DO Emergency Provider Active Start: September 04, 2024 End: September 04, 2024 Sweat Box Attendant Relationship Specialty Start Date End Date Daniel Olivas [facility] - General 05/08/23 Ernesto Carter DO Family Medicine 06/15/16 Naina Da Silva NP [address] [place] [address] Referring Family Medicine 09/05/23 Team Status: Inactive Member Role/Relationship Status Dates Naina Da Silva VSC, [employer] Referring Provider Active Start: May 29, 2024 End: May 29, 2024 Shawanda Ramires [employer], [employer] Attending Provider Active Start: May 29, 2024 End: May 29, 2024 Zebulun Beam VSC, [employer] Primary Care Provider Active Start: May 29, 2024 End: May 29, 2024 Team Status: Inactive Member Role/Relationship Status Dates Zebulun Beam VSC, [employer] Primary Care Provider Active Start: June 02, 2024 End: June 02, 2024 Ed Physician Provider Attending Provider Active Start: June 02, 2024 End: June 02, 2024 Ed Physician Provider Emergency Provider Active Start: June 02, 2024 End: June 02, 2024 Team Status: Inactive Member Role/Relationship Status Dates Zebulun Beam VSC, [employer] Primary Care Provider Active Start: June 03, 2024 End: June 03, 2024 Zebulun Beam VSC, [employer] Attending Provider Active Start: June 03, 2024 End: June 03, 2024 Zebulun Beam VSC, [employer] Referring Provider Active Start: June 03, 2024 End: June 03, 2024 Team Status: Inactive Member Role/Relationship Status Dates Zebulun Beam VSC, [employer] Primary Care Provider Active Start: June 03, 2024 End: June 03, 2024 Dr. Jaylon Galicia MD Attending Provider Active Start: June 03, 2024 End: June 03, 2024 Dr. Jaylon Galicia MD Emergency Provider Active Start: June 03, 2024 End: June 03, 2024 Team Status: Active Member Role/Relationship Status Dates Zebulun Beam VSC, [employer] Primary Care Provider Active Start: June 05, 2024 Shawanda Ramires [employer], [employer] Attending Provider Active Start: June 05, 2024 Shawanda Ramires [employer], [employer] Referring Provider Active Start: June 05, 2024 Team Status: Active Member Role/Relationship Status Dates Zebulun Beam VSC, [employer] Primary Care Provider Active Start: June 05, 2024 Dr. Marco Bartlett MD Attending Provider Active Start: June 05, 2024 Shawanda Ramires [employer], [employer] Referring Provider Active Start: June 05, 2024 Team Status: Inactive Member Role/Relationship Status Dates Zebulun Beam VSC, [employer] Primary Care Provider Active Start: June 10, 2024 End: June 10, 2024 Zebulun Beam VSC, [employer] Attending Provider Active Start: June 10, 2024 End: June 10, 2024 Team Status: Inactive Member Role/Relationship Status Dates Zebulun Beam VSC, [employer] Primary Care Provider Active Start: June 20, 2024 End: June 20, 2024 Shawanda Ramires [employer], [employer] Attending Provider Active Start: June 20, 2024 End: June 20, 2024 Shawanda Ramires [employer], [employer] Referring Provider Active Start: June 20, 2024 End: June 20, 2024 Team Status: Active Member Role/Relationship Status Dates Zebulun Beam VSC, [employer] Primary Care Provider Active Start: June 20, 2024 Dr. Ozzy Greco MD Attending Provider Active S tart: June 20, 2024 Shawanda Ramires [employer], [employer] Referring Provider Active Start: June 20, 2024 Team Status: Inactive Member Role/Relationship Status Dates Naina Da Silva VSC, [employer] Referring Provider Active Start: July 08, 2024 End: July 08, 2024 Dr. Andreas Oliva DO Attending Provider Active Start: July 08, 2024 End: July 08, 2024 Zebulun Beam VSC, [employer] Primary Care Provider Active Start: July 08, 2024 End: July 08, 2024 Team Status: Inactive Member Role/Relationship Status Dates Zebulun Beam VSC, [employer] Primary Care Provider Active Start: July 24, 2024 End: July 24, 2024 Zebulun Beam VSC, [employer] Referring Provider Active Start: July 24, 2024 End: July 24, 2024 Shawanda Ramires [employer], [employer] Attending Provider Active Start: July 24, 2024 End: July 24, 2024 Team Status: Inactive Member Role/Relationship Status Dates Zebulun Beam VSC, [employer] Primary Care Provider Active Start: August 07, 2024 End: August 07, 2024 Dr. Andreas Oliva DO Attending Provider Active Start: August 07, 2024 End: August 07, 2024 Dr. Andreas Oliva DO Referring Provider Active Start: August 07, 2024 End: August 07, 2024 Team Status: Inactive Member Role/Relationship Status Dates Zebulun Beam VSC, [employer] Primary Care Provider Active Start: September 02, 2024 End: September 02, 2024 Nainakourtney Da Silva VSC, [employer] Attending Provider Active Start: September 02, 2024 End: September 02, 2024 Team Status: Inactive Member Role/Relationship Status Dates Zebulun Beam VSC, [employer] Primary Care Provider Active Start: September 04, 2024 End: September 04, 2024 Dr. Alexandr Smith , Attending Provider Active Start: September 04, 2024 End: September 04, 2024 Dr. Alexandr Smith DO Emergency Provider Active Start: September 04, 2024 End: September 04, 2024 Team Status: Inactive Member Role/Relationship Status Dates Zebulun Beam VSC, [employer] Primary Care Provider Active Start: September 21, 2024 End: September 21, 2024 Rodolfo Das MD Emergency Provider Active Star t: September 21, 2024 End: September 21, 2024 Team Status: Inactive Member Role/Relationship Status Dates Zebulun Beam VSC, [employer] Primary Care Provider Active Start: September 25, 2024 End: September 25, 2024 Zebulun Beam VSC, [employer] Referring Provider Active Start: September 25, 2024 End: September 25, 2024 Dr. Andreas Oliva DO Attending Provider Active Start: September 25, 2024 End: September 25, 2024 Team Status: Inactive Member Role/Relationship Status Dates Zebulun Beam VSC, [employer] Primary Care Provider Active Start: June 02, 2024 End: June 02, 2024 Ed Physician Provider Attending Provider Active Start: June 02, 2024 End: June 02, 2024 Ed Physician Provider Emergency Provider Active Start: June 02, 2024 End: June 02, 2024 Team Status: Inactive Member Role/Relationship Status Dates Zebulun Beam VSC, [employer] Primary Care Provider Active Start: June 03, 2024 End: June 03, 2024 Zebulun Beam VSC, [employer] Attending Provider Active Start: June 03, 2024 End: June 03, 2024 Zebulun Beam VSC, [employer] Referring Provider Active Start: June 03, 2024 End: June 03, 2024 Team Status: Inactive Member Role/Relationship Status Dates Zebulun Beam VSC, [employer] Primary Care Provider Active Start: June 03, 2024 End: June 03, 2024 Dr. Jaylon Galicia MD Attending Provider Active Start: June 03, 2024 End: June 03, 2024 Dr. Jaylon Galicia MD Emergency Provider Active Start: June 03, 2024 End: June 03, 2024 Team Status: Active Member Role/Relationship Status Dates Zebudeb Beam VSC, [employer] Primary Care Provider Active Start: June 05, 2024 Shawanda Ramires [employer], [employer] Attending Provider Active Start: June 05, 2024 Shawanda Ramires [employer], [employer] Referring Provider Active Start: June 05, 2024 Team Status: Active Member Role/Relationship Status Dates Zebudeb Beam VSC, [employer] Primary Care Provider Active Start: June 05, 2024 Dr. Marco Bartlett MD Attending Provider Active Start: June 05, 2024 Shawanda Ramires [employer], [employer] Referring Provider Active Start: June 05, 2024 Team Status: Inactive Member Role/Relationship Status Dates Zebulun Beam VSC, [employer] Primary Care Provider Active Start: June 10, 2024 End: June 10, 2024 Zebulun Beam VSC, [employer] Attending Provider Active Start: June 10, 2024 End: June 10, 2024 Team Status: Inactive Member Role/Relationship Status Dates Zebulun Beam VSC, [employer] Primary Care Provider Active Start: June 20, 2024 End: June 20, 2024 Shawanda Ramires [employer], [employer] Attending Provider Active Start: June 20, 2024 End: June 20, 2024 Shawanda Ramires [employer], [employer] Referring Provider Active Start: June 20, 2024 End: June 20, 2024 Team Status: Active Member Role/Relationship Status Dates Zebulun Beam VSC, [employer] Primary Care Provider Active Start: June 20, 2024 Dr. Ozzy Greco MD Attending Provider Active S tart: June 20, 2024 Shawanda Ramires [employer], [employer] Referring Provider Active Start: June 20, 2024 Team Status: Inactive Member Role/Relationship Status Dates Naina Da Silva VSC, [employer] Referring Provider Active Start: July 08, 2024 End: July 08, 2024 Dr. Andreas Oliva DO Attending Provider Active Start: July 08, 2024 End: July 08, 2024 Zebulun Beam VSC, [employer] Primary Care Provider Active Start: July 08, 2024 End: July 08, 2024 Team Status: Inactive Member Role/Relationship Status Dates Zebulun Beam VSC, [employer] Primary Care Provider Active Start: July 24, 2024 End: July 24, 2024 Zebulun Beam VSC, [employer] Referring Provider Active Start: July 24, 2024 End: July 24, 2024 Shawanda Ramires [employer], [employer] Attending Provider Active Start: July 24, 2024 End: July 24, 2024 Team Status: Inactive Member Role/Relationship Status Dates Zebulun Beam VSC, [employer] Primary Care Provider Active Start: August 07, 2024 End: August 07, 2024 Dr. Andreas Oliva DO Attending Provider Active Start: August 07, 2024 End: August 07, 2024 Dr. Andreas Oliva DO Referring Provider Active Start: August 07, 2024 End: August 07, 2024 Team Status: Inactive Member Role/Relationship Status Dates Zebulun Beam VSC, [employer] Primary Care Provider Active Start: September 02, 2024 End: September 02, 2024 Naina Da Silva VSC, [employer] Attending Provider Active Start: September 02, 2024 End: September 02, 2024 Team Status: Inactive Member Role/Relationship Status Dates Zebulun Beam VSC, [employer] Primary Care Provider Active Start: September 04, 2024 End: September 04, 2024 Dr. Alexandr Smith DO Attending Provider Active Start: September 04, 2024 End: September 04, 2024 Dr. Alexandr Smith DO Emergency Provider Active Start: September 04, 2024 End: September 04, 2024 Team Status: Inactive Member Role/Relationship Status Dates Zebulun Beam VSC, [employer] Primary Care Provider Active Start: September 21, 2024 End: September 21, 2024 Rodolfo Das MD Emergency Provider Active Star t: September 21, 2024 End: September 21, 2024 Team Status: Inactive Member Role/Relationship Status Dates Zebulun Beam VSC, [employer] Primary Care Provider Active Start: September 25, 2024 End: September 25, 2024 Zebulun Beam VSC, [employer] Referring Provider Active Start: September 25, 2024 End: September 25, 2024 Dr. Andreas Oliva DO Attending Provider Active Start: September 25, 2024 End: September 25, 2024 Team Status: Inactive Member Role/Relationship Status Dates Karuna MCBRIDE, [employer] Primary Care Provider Active Start: September 27, 2024 End: September 27, 2024 Dr. Mazin Wilkinson MD Referring Provider Active S tart: September 27, 2024 End: September 27, 2024 Dr. Mazin Wilkinson MD Emergency Provider Active S tart: September 27, 2024 End: September 27, 2024 Sweat Box Attendant Relationship Specialty Start Date End Date [facility], [facility] PCP - General 05/08/23 Ernesto Carter DO Family Medicine 06/15/16 Naina Da Silva NP [address], [place] [id number] Referring Family Medicine 09/05/23 Sweat Box Attendant Relationship Specialty Start Date End Date [facility], [facility] PCP - General 05/08/23 Ernesto Carter DO Family Medicine 06/15/16 Naina Da Silva NP [address], [place] [address] Referring Family Medicine 09/05/23 Sweat Box Attendant Relationship Specialty Start Date End Date [facility], [facility] PCP - General 05/08/23 Ernesto Carter DO Family Medicine 06/15/16 Naina Da Silva NP [address] [place] [address] Referring Family Medicine 09/05/23 Team Status: Inactive Member Role/Relationship Status Dates Naina Avinash VSC, [employer] Referring Provider Active Start: July 08, 2024 End: July 08, 2024 Dr. Andreas Oliva DO Attending Provider Active Start: July 08, 2024 End: July 08, 2024 Vazquezbulun Beam VSC, [employer] Primary Care Provider Active Start: July 08, 2024 End: July 08, 2024 Team Status: Inactive Member Role/Relationship Status Dates Zebueliezern Beam VSC, [employer] Primary Care Provider Active Start: July 24, 2024 End: July 24, 2024 Karuna Beam VSC, [employer] Referring Provider Active Start: July 24, 2024 End: July 24, 2024 Shawanda Ramires [employer], [employer] Attending Provider Active Start: July 24, 2024 End: July 24, 2024 Team Status: Inactive Member Role/Relationship Status Dates Zebulun Beam VSC, [employer] Primary Care Provider Active Start: August 07, 2024 End: August 07, 2024 Dr. Andreas Oliva DO Attending Provider Active Start: August 07, 2024 End: August 07, 2024 Dr. Andreas Oliva DO Referring Provider Active Start: August 07, 2024 End: August 07, 2024 Team Status: Inactive Member Role/Relationship Status Dates Zebudeb Beam VSC, [employer] Primary Care Provider Active Start: September 02, 2024 End: September 02, 2024 Naina Da Silva VSC, [employer] Attending Provider Active Start: September 02, 2024 End: September 02, 2024 Team Status: Inactive Member Role/Relationship Status Dates Zebulun Beam VSC, [employer] Primary Care Provider Active Start: September 04, 2024 End: September 04, 2024 Dr. Alexandr Smith DO Attending Provider Active Start: September 04, 2024 End: September 04, 2024 Dr. Alexandr Smith DO Emergency Provider Active Start: September 04, 2024 End: September 04, 2024 Team Status: Inactive Member Role/Relationship Status Dates Zebulun Beam VSC, [employer] Primary Care Provider Active Start: September 21, 2024 End: September 21, 2024 Rodolfo Das MD Attending Provider Active Star t: September 21, 2024 End: September 21, 2024 Rodolfo Das MD Emergency Provider Active Star t: September 21, 2024 End: September 21, 2024 Team Status: Inactive Member Role/Relationship Status Dates Zebulun Beam VSC, [employer] Primary Care Provider Active Start: September 25, 2024 End: September 25, 2024 Zebulun Beam VSC, [employer] Referring Provider Active Start: September 25, 2024 End: September 25, 2024 Dr. Andreas Oliva DO Attending Provider Active Start: September 25, 2024 End: September 25, 2024 Team Status: Inactive Member Role/Relationship Status Dates Zebulun Beam VSC, [employer] Primary Care Provider Active Start: September 27, [...] Member Role/Relationship Status Dates Zebulun Beam VSC, [employer] Primary Care Provider Active Start: October 27, 2024 End: October 27, 2024 Zebulun Beam VSC, [employer] Referring Provider Active Start: October 27, 2024 End: October 27, 2024 Dr. Andreas Oliva DO Attending Provider Active Start: October 27, 2024 End: October 27, 2024 Team Status: Active Member Role/Relationship Status Dates Zebulun Beam VSC, [employer] Primary Care Provider Active Start: October 27, 2024 Zebulun Beam VSC, [employer] Referring Provider Active Start: October 27, 2024 Dr. Andreas Oliva DO Attending Provider Active Start: October 27, 2024 Dr. Andreas Oliva DO Other Provider Active St art: October 27, 2024 Team Status: Active Member Role/Relationship Status Dates Zebulun Beam VSC, [employer] Primary care physician Active Team Status: Inactive Member Role/Relationship Status Dates Zebulun Beam VSC, [employer] Primary care physician Active Start: July 24, 2024 End: July 24, 2024 Zebulun Beam VSC, [employer] Referring Provider Active Start: July 24, 2024 End: July 24, 2024 Shawanda Ramires [employer], [employer] Attending physician Active Start: July 24, 2024 End: July 24, 2024 Team Status: Inactive Member Role/Relationship Status Dates Zebulun Beam VSC, [employer] Primary care physician Active Start: August 07, 2024 End: August 07, 2024 Dr. Andreas Oliva DO Attending physician Active Start: August 07, 2024 End: August 07, 2024 Dr. Andreas Oliva DO Referring Provider Active Start: August 07, 2024 End: August 07, 2024 Team Status: Inactive Member Role/Relationship Status Dates Zebulun Beam VSC, [employer] Primary care physician Active Start: September 02, 2024 End: September 02, 2024 Naina Da Silva VSC, [employer] Attending physician Active Start: September 02, 2024 End: September 02, 2024 Team Status: Inactive Member Role/Relationship Status Dates Zebulun Beam VSC, [employer] Primary care physician Active Start: September 04, 2024 End: September 04, 2024 Dr. Alexandr Smith DO Attending physician Active Start: September 04, 2024 End: September 04, 2024 Dr. Alexandr Smith DO Emergency Department Physician A ctive Start: September 04, 2024 End: September 04, 2024 Team Status: Inactive Member Role/Relationship Status Dates Zebulun Beam VSC, [employer] Primary care physician Active Start: September 21, 2024 End: September 21, 2024 Rodolfo Das MD Attending physician Active Sta rt: September 21, 2024 End: September 21, 2024 Rodolfo Das MD Emergency Department Physician Activ e Start: September 21, 2024 End: September 21, 2024 Team Status: Inactive Member Role/Relationship Status Dates Zebulun Beam VSC, [employer] Primary care physician Active Start: September 25, 2024 End: September 25, 2024 Zebulun Beam VSC, [employer] Referring Provider Active Start: September 25, 2024 End: September 25, 2024 Dr. Andreas Oliva DO Attending physician Active Start: September 25, 2024 End: September 25, 2024 Team Status: Inactive Member Role/Relationship Status Dates Zebulun Beam VSC, [employer] Primary care physician Active Start: September 27, 2024 End: September 27, 2024 Dr. aMzin Wilkinson MD Attending physician Active Start: September 27, 2024 End: September 27, 2024 Dr. Mazin Wilkinson MD Referring Provider Active S tart: September 27, 2024 End: September 27, 2024 Dr. Mazin Wilkinson MD Emergency Department Physician Ac tive Start: September 27, 2024 End: September 27, 2024 Team Status: Inactive Member Role/Relationship Status Dates Zebulun Beam VSC, [employer] Primary care physician Active Start: October 27, 2024 End: October 27, 2024 Zebulun Beam VSC, [employer] Referring Provider Active Start: October 27, 2024 End: October 27, 2024 Dr. Andreas Oliva DO Attending physician Active Start: October 27, 2024 End: October 27, 2024 Team Status: Active Member Role/Relationship Status Dates Zebulun Beam VSC, [employer] Primary care physician Active Start: October 27, 2024 Zebulun Beam VSC, [employer] Referring Provider Active Start: October 27, 2024 Dr. Andreas Oliva DO Attending physician Active Start: October 27, 2024 Dr. Andreas Oliva DO Nurse Practitioner Active Start: October 27, 2024 Team Status: Active Member Role/Relationship Status Dates Zebulun Beam VSC, [employer] Primary care physician Active Start: October 28, 2024 Dr. Garrick Mcgowan MD Attending physician Active Start: October 28, 2024 Yessica Guthrie PA, PA Referring Provider Active Start: October 28, 2024 Team Status: Inactive Member Role/Relationship Status Dates Zebulun Beam VSC, [employer] Primary care physician Active Start: October 28, 2024 End: October 28, 2024 Yessica Guthrie PA, PA Attending physician Active Start: October 28, 2024 End: October 28, 2024 Yessica Guthrie PA, PA Referring Provider Active Start: October 28, 2024 End: October 28, 2024 Team Status: Active Member Role/Relationship Status Dates Zebulun Beam VSC, [employer] Primary care physician Active Start: November 06, 2024 Yessica Guthrie PA, PA Referring Provider Active Start: November 06, 2024 Yessica Guthrie PA, PA Nurse Practitioner Active Start: November 06, 2024 Dr. Garrick Mcgowan MD Attending physician Active Start: November 06, 2024 Team Status: Active Member Role/Relationship Status Dates Zebulun Beam VSC, [employer] Primary care physician Active Start: November 14, 2024 Shawanda Ramires [employer], [employer] Attending physician Active Start: November 14, 2024 Shawanda Ramires [employer], [employer] Referring Provider Active Start: November 14, 2024 Team Status: Inactive Member Role/Relationship Status Dates Zebulun Beam VSC, [employer] Primary care physician Active Start: November 18, 2024 End: November 18, 2024 Dr. Mau Smallwood MD Emergency Department Physician Active Start: November 18, 2024 End: November 18, 2024 Team Status: Inactive Member Role/Relationship Status Dates Zebulun Beam VSC, [employer] Primary care physician Active Start: September 02, 2024 End: September 02, 2024 Naina Da Silva VSC, [employer] Attending physician Active Start: September 02, 2024 End: September 02, 2024 Team Status: Inactive Member Role/Relationship Status Dates Zebulun Beam VSC, [employer] Primary care physician Active Start: September 04, 2024 End: September 04, 2024 Dr. Alexandr Smith DO Attending physician Active Start: September 04, 2024 End: September 04, 2024 Dr. Alexandr Smith DO Emergency Department Physician A ctive Start: September 04, 2024 End: September 04, 2024 Team Status: Inactive Member Role/Relationship Status Dates Zebulun Beam VSC, [employer] Primary care physician Active Start: September 21, 2024 End: September 21, 2024 Rodolfo Das MD Attending physician Active Sta rt: September 21, 2024 End: September 21, 2024 Rodolfo Das MD Emergency Department Physician Activ e Start: September 21, 2024 End: September 21, 2024 Team Status: Inactive Member Role/Relationship Status Dates Zebulun Beam VSC, [employer] Primary care physician Active Start: September 25, 2024 End: September 25, 2024 Zebulun Beam VSC, [employer] Referring Provider Active Start: September 25, 2024 End: September 25, 2024 Dr. Andreas Oliva DO Attending physician Active Start: September 25, 2024 End: September 25, 2024 Team Status: Inactive Member Role/Relationship Status Dates Zebulun Beam VSC, [employer] Primary care physician Active Start: September 27, [...] Member Role/Relationship Status Dates Zebulun Beam VSC, [employer] Primary care physician Active Start: October 27, 2024 End: October 27, 2024 Zebulun Beam VSC, [employer] Referring Provider Active Start: October 27, 2024 End: October 27, 2024 Dr. Andreas Oliva DO Attending physician Active Start: October 27, 2024 End: October 27, 2024 Team Status: Active Member Role/Relationship Status Dates Zebulun Beam VSC, [employer] Primary care physician Active Start: October 27, 2024 Zebulun Beam VSC, [employer] Referring Provider Active Start: October 27, 2024 Dr. Andreas Oliva DO Attending physician Active Start: October 27, 2024 Dr. Andreas Oliva DO Nurse Practitioner Active Start: October 27, 2024 Team Status: Active Member Role/Relationship Status Dates Zebulun Beam VSC, [employer] Primary care physician Active Start: October 28, 2024 Dr. Garrick Mcgowan MD Attending physician Active Start: October 28, 2024 Yessica Guthrie PA, PA Referring Provider Active Start: October 28, 2024 Team Status: Inactive Member Role/Relationship Status Dates Zebulun Beam VSC, [employer] Primary care physician Active Start: October 28, 2024 End: October 28, 2024 Yessica Guthrie PA, PA Attending physician Active Start: October 28, 2024 End: October 28, 2024 Yessica HICKEY, PA Referring Provider Active Start: October 28, 2024 End: October 28, 2024 Team Status: Active Member Role/Relationship Status Dates Zebulun Beam VSC, [employer] Primary care physician Active Start: November 06, 2024 Yessica HICKEY, PA Referring Provider Active Start: November 06, 2024 Yessica HICKEY PA Nurse Practitioner Active Start: November 06, 2024 Dr. Garrick Mcgowan MD Attending physician Active Start: November 06, 2024 Team Status: Inactive Member Role/Relationship Status Dates Zebulun Beam VSC, [employer] Primary care physician Active Start: November 14, 2024 End: November 14, 2024 Shawanda Ramires [employer], [employer] Attending physician Active Start: November 14, 2024 End: November 14, 2024 Shawanda Ramires [employer], [employer] Referring Provider Active Start: November 14, 2024 End: November 14, 2024 Team Status: Inactive Member Role/Relationship Status Dates Zebulun Beam VSC, [employer] Primary care physician Active Start: November 18, 2024 End: November 18, 2024 Dr. Mau Smallwood MD Attending physician Active St art: November 18, 2024 End: November 18, 2024 Dr. Mau Smallwood MD Emergency Department Physician Active Start: November 18, 2024 End: November 18, 2024 Team Status: Inactive Member Role/Relationship Status Dates Zebulun Beam VSC, [employer] Primary care physician Active Start: November 20, 2024 End: November 20, 2024 Zebulun Beam VSC, [employer] Attending physician Active Start: November 20, 2024 End: November 20, 2024 Zebulun Beam VSC, [employer] Referring Provider Active Start: November 20, 2024 End: November 20, 2024 Team Status: Inactive Member Role/Relationship Status Dates Zebulun Beam VSC, [employer] Primary care physician Active Start: November 28, 2024 End: November 28, 2024 Zebulun Beam VSC, [employer] Referring Provider Active Start: November 28, 2024 End: November 28, 2024 Shawanda Ramires NP, [employer] Attending physician Active Start: November 28, 2024 End: November 28, 2024 Team Status: Active Member Role/Relationship Status Dates Zebulun Beam VSC, [employer] Primary care physician Active Start: November 28, 2024 Shawanda Ramires [employer], [employer] Attending physician Active Start: November 28, 2024 Shawanda Ramires [employer], [employer] Referring Provider Active Start: November 28, 2024 Team Status: Inactive Member Role/Relationship Status Dates Zebulun Beam VSC, [employer] Primary care physician Active Start: December 09, 2024 End: December 09, 2024 Vazquezbuluadalgisa Beam VSC, [employer] Referring Provider Active Start: December 09, 2024 End: December 09, 2024 Zeus Miller [employer], [employer] Attending physician Active Start: December 09, 2024 End: December 09, 2024 Team Status: Active Member Role/Relationship Status Dates Karuna Lim VSC, [employer] Primary care physician Active Start: December 09, 2024 Zeus Miller [employer], [employer] Attending physician Active Start: December 09, 2024 Zeus Miller [employer], [employer] Referring Provider Active Start: December 09, 2024 Team Status: Inactive Member Role/Relationship Status Dates Karuna Lim VSC, [employer] Primary care physician Active Start: November 28, 2024 End: November 28, 2024 Shawanda Ramires [employer], [employer] Attending physician Active Start: November 28, 2024 End: November 28, 2024 Shawanda Ramires [employer], [employer] Referring Provider Active Start: November 28, 2024 End: November 28, 2024 Team Status: Inactive Member Role/Relationship Status Dates Karuna Beam VSC, [employer] Primary care physician Active Start: December 09, 2024 End: December 09, 2024 Zeus Miller NP, [employer] Attending physician Active Start: December 09, 2024 End: December 09, 2024 Zeus Miller [employer], [employer] Referring Provider Active Start: December 09, 2024 [...] (MNT) MEDICAL NUTRITION ASSMT&IVNTJ INDIV EACH 15 [place] MEDICAL NUTRITION ASSMT&IVNTJ INDIV EACH 15 [place] MEDICAL NUTRITION ASSMT&IVNTJ INDIV EACH 15 [place] MEDICAL NUTRITION ASSMT&IVNTJ INDIV EACH 15 [place] Jey Johnson MD [address] [place] [address] Referral ID Status Reason Start Date Expiration Date V isits Requested Visits Authorized [id number] Closed PCP Requested Referral 01/08/2024 01/07/2025 1 1 Reason Comments Diarrhea vomiting, cough, chi lls and fever x 4 days Reason Comments Established Patient Follow-Up Reason Comments Medical Weight Management Specialty Diagnoses / Procedures Referred By Contac t Referred To Contact Diagnoses Obesity, Class III, BMI 40-49.9 (morbid obesity) (HCC) PCOS (polycystic ovarian syndrome) Procedures ENDOCRINE MEDICAL WEIGHT MANAGEMENT OFFICE/OUTPATIENT [facility] 60 MINUTES Jey Johnson MD [address] [facility] [address] [place] [address] Phone: tel: fax: Referral ID Status Reason Start Date Expiration Date V isits Requested Visits Authorized [id number] Closed PCP Requested Referral 04/15/2024 04/15/2025 1 [...] BE BASED ON THE PRIMARY CLINICAL RECORDS. [employer] [facility]. provides no warranty or guarantee of the accuracy or completeness of information in this document.
== END | disposition home or self-care (01) ==
LOC: CVS 09:49
PROVIDERS: Referring Provider Nurse Practitioner Gerontology; Visit Provider Nurse Practitioner Gerontology
DX: I51.9 Heart disease, unspecified (principal)
CPT/HCPCS: 93306; Q9957; A4216; C8929

== ENCOUNTER 2025-02-16 11:10 | Emergency (ER) | payer MEDICAID, SELFPAY ==
[2025-02-16 11:11] VITALS: BP 149/95; PULSE 75; RESP 18; TEMP 35.8; O2SAT 99; BMI 45.4
--- NOTE | 2025-02-16 11:43 | EX.ED.VIS.HA ---
HPI History of Present Illness Chief Complaint: Headache Narrative Narrative: 29-year-old female past medical history of Crohn's disease, gastroparesis, migraine, hypertension presents emergency department for complaint of headache. Patient states that she has had past medical history of migraines and is on migraine medication which she took today. States that it only helped minimally and headaches been ongoing since . Denies any visual changes but does have photophobia which is typical for her migraine symptoms and pain on the left side of her head. Denies any numbness, weakness, neck rigidity or sudden onset. [facility] Medical History Dietary restriction Shortness of breath on exertion History of pain when walking Alcohol use Picking own skin Low iron Fatty liver Gastroparesis Cardiology follow-up encounter Obesity Depression Diabetes GERD (gastroesophageal reflux disease) Irregular heart beat Cellulitis History of echocardiogram Wears glasses Bipolar disorder Anxiety Arthritis Back pain Migraine headache Syncope Non-smoker Bipolar 1 disorder PCOS (polycystic ovarian syndrome) IBS (irritable bowel syndrome) Autism Home Medications ?Medication ?Instructions ?Recorded ?Last Taken ?Type lithium carbonate 300 mg capsule 300 mg PO DAILY Bipolar 04/05/17 09/27/24 History ferrous sulfate 325 mg (65 mg 325 mg PO QODAY supplement 01/24/22 10/24/24 History iron) tablet (FeroSul) lithium carbonate 600 mg capsule 600 mg PO QHS mental health 01/24/22 09/26/24 History aripiprazole lauroxil 441 mg/1.6 441 mg IM .Q28 DAYS mental health 12/18/22 09/24/24 History mL suspension, ext.rel. IM syringe ([place]ristada) cholecalciferol (vitamin D3) 25 25 mcg PO DAILY vitamin 12/18/22 09/26/24 History mcg (1,000 unit) tablet (Vitamin D3) imipramine HCl 25 mg tablet 25 mg PO DAILY mental health 12/18/22 09/26/24 History pantoprazole 40 mg tablet,delayed 40 mg PO QHS 06/03/23 09/26/24 History release simvastatin 20 mg tablet 20 mg PO QHS 06/03/23 09/26/24 History diphenoxylate-atropine 2.5 1 tab PO BID PRN diarrhea #30 tabs 10/29/23 Unknown Rx mg-0.025 mg tablet (Lomotil) dicyclomine 20 mg tablet 20 mg PO TID PRN abdominal pain 05/08/24 09/23/24 Rx #30 tabs metoclopramide HCl 10 mg tablet 10 mg PO Q6H PRN nausea and 05/08/24 09/26/24 Rx (Reglan) vomiting #20 tabs miscellaneous medical supply #1 ea 05/29/24 Unknown Rx cyanocobalamin (vitamin B-12) 1,000 mcg sublingual DAILY 09/04/24 09/26/24 History 1,000 mcg sublingual tablet rizatriptan 10 mg tablet 10 mg PO Q2H PRN migraine headache 09/04/24 Unknown History spironolactone 25 mg tablet 25 mg PO QDAY #30 tabs 11/07/24 Unknown Rx atogepant 60 mg tablet (Qulipta) 60 mg PO QDAY 11/28/24 Unknown History diphenoxylate-atropine 2.5 1 tab PO TID PRN 11/28/24 Unknown History mg-0.025 mg tablet polyethylene glycol 3350 17 4 g PO ONCE PRN constipation 11/28/24 Unknown History gram/dose oral powder (Miralax) Grab Bars #1 ea 12/05/24 Unknown Rx norgestimate 0.25 mg-ethinyl 1 tab PO DAILY #84 tabs 12/09/24 Unknown Rx estradiol 0.035 mg tablet (Forsyth-Linyah) carvedilol 6.25 mg tablet 6.25 mg PO BID #60 tabs 01/26/25 Unknown Rx amlodipine 5 mg tablet 5 mg PO BID this is a dose 02/02/25 Unknown Rx increase #180 tabs Allergy/AdvReac Type Severity Reaction Status Date / Time ondansetron (From Zofran (as Allergy Anaphylaxis Verified 02/16/25 11:11 hydrochloride)) pollen extracts Allergy Hives Verified 02/16/25 11:11 metformin AdvReac Mild Nausea/Vom/ Verified 02/16/25 11:11 Diarrhea escitalopram (From Lexapro) AdvReac Other Verified 02/16/25 11:11 lactase (From Dairy Aid) AdvReac Upset Verified 02/16/25 11:11 Stomach Family History Mother Uterine cancer Other Asthma Depression Diabetes GERD (gastroesophageal reflux disease) Heart disease Hyperlipidemia Hypertension Surgical History History of colonoscopy History of esophagogastroduodenoscopy (EGD) History of tonsillectomy and adenoidectomy H/O knee surgery H/O spinal fusion Social History household members: none housing: apartment current occupational status: unemployed history of recent travel: No Smoking Status: Never smoker alcohol intake: current alcohol intake frequency: holidays/special occasions only substance use type: does not use caffeine: Yes Type: carbonated beverages what type of physical activity do you participate in: walking frequency: daily seatbelt use: always do you feel safe at home: Yes additional social history: single EXAM Physical Exam Const Vital Signs: 02/16/25 11:11 02/16/25 13:10 02/16/25 14:20 Temperature 96.4 F L 96.4 F L Temperature Source Temporal Pulse Rate 75 90 103 H Respiratory Rate 18 19 H 18 Blood Pressure 149/95 H 146/73 H 154/89 H Blood Pressure Mean 113 97 110 Pulse Ox 99 100 98 Oxygen Delivery Method Room Air HEENT Reports normocephalic atraumatic Face and Sinus: Negative for sinus tenderness Eyes PERRL and EOMs intact bilaterally Neck no lymphadenopathy, supple and no meningeal signs Resp normal respiratory effort Cardio regular rate and no murmurs Neuro oriented x3, CN's II-XII intact bilaterally and no sensory deficits noted Sensorium / Orientation: awake, alert, oriented to person, oriented to place and oriented to time Speech: speech normal Gait (Neuro): normal gait Sensory Exam: No sensory level loss detected Motor Exam: strength 5/5 throughout MDM MDM MDM Narrative Medical decision making narrative: 29-year-old female past medical history of Crohn's disease, gastroparesis, migraine, hypertension presents emergency department for complaint of headache. Patient states that she has had past medical history of migraines and is on migraine medication which she took today. States that it only helped minimally and headaches been ongoing since . Denies any visual changes but does have photophobia which is typical for her migraine symptoms and pain on the left side of her head. Denies any numbness, weakness, neck rigidity or sudden onset. On my physical exam patient having no focal neurological deficits. Pupils equal reactive to light. Extraocular motion intact with no evidence of nystagmus. No neck rigidity with full range of motion. Patient does have a history of migraines this does appear to be similar to presentations in the past. I did give patient IV migraine cocktail with resolution of symptoms completely. Did not feel that CT imaging was necessary as I have low suspicion for subarachnoid hemorrhage given gradual onset and history of migraines presenting similarly. Vitals remained stable on reassessment is agreeable for discharge return precautions given. Discharge Plan Triage Chief Complaint: Headache ED Provider: Ana Marrufo Dx/Rx/DC Orders Clinical Impression: Migraine headache Prescriptions: No Action (DME) miscellaneous medical supply Misc See Rx Instructions .Route Qty: 1 0RF Rx Instructions: As directed carvedilol 6.25 mg tablet 6.25 mg PO BID Qty: 60 11RF Rx Instructions: must administer with a meal/food norgestimate-ethinyl estradiol [Forsyth-Linyah] 0.25-0.035 mg tablet 1 tab PO DAILY Qty: 84 4RF polyethylene glycol 3350 [Miralax] 17 gram/dose powder 4 g PO ONCE PRN (Reason: constipation) Rx Instructions: Mix entire bottle into 64oz of clear liquid for colonoscopy prep Qulipta 60 mg tablet 60 mg PO QDAY diphenoxylate-atropine 2.5-0.025 mg tablet 1 tab PO TID PRN lithium carbonate 300 MG capsule 300 mg PO DAILY lithium carbonate 600 mg Capsule 600 mg PO QHS ferrous sulfate [FeroSul] 325 mg (65 mg iron) tablet 325 mg PO QODAY imipramine HCl 25 mg tablet 25 mg PO DAILY cholecalciferol (vitamin D3) [Vitamin D3] 25 mcg (1,000 unit) tablet 25 mcg PO DAILY Aristada 441 mg/1.6 mL suspension,extended rel syring 441 mg IM .Q28 DAYS Rx Instructions: 441 mg intramuscularly Q28D; due first week september metoclopramide HCl [Reglan] 10 mg tablet 10 mg PO Q6H PRN (Reason: nausea and vomiting) Qty: 20 0RF dicyclomine 20 mg tablet 20 mg PO TID PRN (Reason: abdominal pain) Qty: 30 0RF cyanocobalamin (vitamin B-12) 1,000 mcg tablet, sublingual 1,000 mcg sublingual DAILY rizatriptan 10 mg tablet 10 mg PO Q2H PRN (Reason: migraine headache) simvastatin 20 mg tablet 20 mg PO QHS pantoprazole 40 mg tablet,delayed release (DR/EC) 40 mg PO QHS diphenoxylate-atropine [Lomotil] 2.5-0.025 mg tablet 1 tab PO BID PRN (Reason: diarrhea) Qty: 30 2RF spironolactone 25 mg tablet 25 mg PO QDAY Qty: 30 11RF (DME) Grab Bars See Rx Instructions .Route .MEDSUPPLY Qty: 1 0RF Rx Instructions: Around patient toilet and in bathroom for patient's safety due to frequent passing out episodes related to cardiac condition amlodipine 5 mg tablet 5 mg PO BID Qty: 180 3RF Primary Care Provider: Karuna Lim Referrals: Karuna Lim, [facility] [Primary Care Provider, Family Practice] Activity Restrictions/Additional Instructions: Please follow-up with your primary care provider within the next week regarding your visit today. Return if you develop any worsening symptoms, change in symptoms. Print Language: Turkish Disposition Disposition: Home, Self Care Discharge Date/Time: 02/16/25 14:24
[2025-02-16] MEDS: 0.9% Normal Saline (1000mL) 1,000 ML 999 ML IV (12:20)
[2025-02-16] MEDS: DiphenhydrAMINE 50 MG/ML Syringe 25 MG IV (12:25)
[2025-02-16 13:10] VITALS: BP 146/73; PULSE 90; RESP 19; O2SAT 100
[2025-02-16 14:20] VITALS: BP 154/89; PULSE 103; RESP 18; TEMP 35.8; O2SAT 98
== END 2025-02-16 14:24 | disposition home or self-care (01) ==
PROVIDERS: Emergency Provider Student in an Organized Health Care Education/Training Program; Visit Provider Student in an Organized Health Care Education/Training Program
DX: G43.909 Migraine, unspecified, not intractable, without status migrainosus (principal); F31.9 Bipolar disorder, unspecified; E11.9 Type 2 diabetes mellitus without complications; Z79.899 Other long term (current) drug therapy; K21.9 Gastro-esophageal reflux disease without esophagitis
CPT/HCPCS: 96361; 96374; 96375; 99283; A4216